=== PATIENT | male | born 1955 | race Caucasian/White ===

== ENCOUNTER 2016-09-25 10:25 | Inpatient (IN) | payer OTHER ==
[~2016-09-25] VITALS: Ht 172.7 cm; Wt 86.5 kg
[~2016-09-25 10:25] MED LIST: ASPEC81 PO; ATOR-26 PO; CALC-51 PO; CHOL100010 PO; CLOP1TAB15 PO; FSM70 PO; FURO80TA63 PO; INSUINJ12 SC; LEVO150T9 PO; LPR25 PO; NVLGI SC; PANT40TA PO; POTA20TA16 PO
[2016-09-25] MEDS ORDERED: INSDGI SC (10:46)
[2016-09-25] MEDS ORDERED: CALC-393 PO (10:46)
[2016-09-25] MEDS ORDERED: PIPERACILLIN/TAZOBACTAM 4.5 GM/100ML D5W IV STA (11:27)
--- NOTE | 2016-09-25 11:31 | EMERGENCY ROOM VISIT NOTE ---
ED Visit Note First contact with patient: 10:52 61-year-old male with infected right great toe and spreading cellulitis was fully evaluated by Chance Wayne PA-C. Please see his note. I also independently evaluated the patient. The patient will be started on IV antibiotics after cultures were obtained. The patient will require admission. Consultation was made with the hospitalist. IMPRESSION Cellulitis Right Foot
[2016-09-25 11:32] LABS: BASO % 0.7 %; BASO ABS # 0.05 K/uL (0-0.2); COMPLETE YES; EOS % 1.6 %; HEMATOCRIT 38.2 % (42-52); IG% 0.1 %; LYMPH % 20.1 %; LYMPH ABS # 1.51 K/uL (1.2-3.4); MEAN CELL VOLUME 91.2 fL (80-100); MEAN PLATELET VOLUME 10.8 fL (7.4-10.4); MONO % 11.2 %; NEUT % 66.3 %; PLATELET COUNT 206 K/uL (130-400); RED BLOOD COUNT 4.19 M/uL (4.7-6.1); WHITE BLOOD COUNT 7.52 K/uL (4.8-10.8)
--- NOTE | 2016-09-25 11:38 | DIAGNOSTIC IMAGING REPORT ---
RIGHT FIRST TOE 3 VIEWS CLINICAL HISTORY: Cellulitis. FINDINGS: 3 views of the right first toe are obtained. No prior studies are available for comparison at the time of dictation. The skeletal structures are osteopenic. No fracture is seen. A cortical lag screw is present within the first toe transfixing the diffuse interphalangeal joint. The screw appears intact. No bony erosion or periostitis is identified. Degenerative spurring is present from the base of the first distal phalanx. Mild arthritic change is seen at the first metatarsophalangeal joint. The overlying soft tissues are normal as visualized. No subcutaneous gas is identified. There is atherosclerotic calcification of the regional arteries. IMPRESSION: Osteopenia with postoperative and degenerative change in the first toe as above. No acute bony abnormality is identified. Electronically signed by: Tae Pizarro M.D. 09/25/2016 11:36 AM Dictated Date/Time: 09/25/2016 11:34 AM
[2016-09-25 11:54] LABS: BUN/CREATININE RATIO 8.5 (10-20); CALCIUM 9.5 mg/dl (8.5-10.1); CREATININE 1.2 mg/dl (0.60-1.40); POTASSIUM 3.5 mmol/L (3.5-5.1)
[2016-09-25] MEDS ORDERED: GLUCOSE 40% GEL 15 GM TUBE PO PRN (12:15)
[2016-09-25] MEDS ORDERED: GLUCAGON FOR INJ 1 MG VIAL SQ PRN (12:15)
[2016-09-25] MEDS ORDERED: DEXTROSE 50% 50 ML SYR IV PRN (12:15)
[2016-09-25] MEDS ORDERED: GLUCOSE 10 TABS/TUBE PO PRN (12:15)
[2016-09-25] MEDS ORDERED: MoRPHine SULFATE 4 MG/ML 1 ML CARP\\VIAL IV PRN (12:30)
[2016-09-25] MEDS ORDERED: MAGNESIUM HYDROXIDE SUSP 30 ML UDC PO PRN (12:30)
[2016-09-25] MEDS ORDERED: ACETAMINOPHEN 325 MG TAB PO PRN (12:30)
[2016-09-25] MEDS ORDERED: MoRPHine SULFATE 2 MG/ML CARP IV PRN (12:30)
[2016-09-25] MEDS ORDERED: ONDANSETRON INJ 2 MG/ML 2 ML VIAL IV PRN (12:30)
[2016-09-25] MEDS ORDERED: ALUMINUM/MAGNESIUM/SIMETH (MAALOX MAX) 30 ML UDC PO PRN (12:30)
[2016-09-25] MEDS ORDERED: OXYCODONE HCL IR 5 MG TAB (IMMEDIATE RELEASE) PO PRN (12:30)
[2016-09-25 12:37] VITALS: BMI 29.0
--- NOTE | 2016-09-25 13:30 | EMERGENCY ROOM VISIT NOTE ---
History First contact with patient: 10:52 Chief Complaint: WOUND INFECTION Stated Complaint: R BIG TOE ULCER INFECTED Nursing Triage Summary: Right great toe wound - wants rechecked, sees [facility]ound [facility]. Not visualized in triage History of Present Illness The patient is a 61 year old male who presents to the Emergency Room with complaints of increasing redness, swelling and drainage from his right great toe. He also reports spread of the redness onto his foot. The patient reports that he stepped on a broken Royal bulb on . He subsequently went to the Wound Center and had some debridement done of the toe. His last appointment was last Monday, and reports that it was getting better until 2 days ago. The patient is a diabetic as well. He denies any pain because of history of diabetic peripheral neuropathy. Review of Systems HEENT: Denies dizziness, visual problems, hearing loss, tinnitus. Denies difficulty swallowing or oral lesions. PULMONARY: Denies cough, shortness of breath, sputum production or hemoptysis. CARDIOVASCULAR: Denies chest pain, palpitations, dyspnea on exertion, orthopnea or peripheral edema. GASTROINTESTINAL: Denies diarrhea, constipation, nausea, vomiting, or abdominal pain. GENITOURINARY: Denies dysuria, frequency, urgency or nocturia. NEUROLOGIC: Denies history of epilepsy, CVA, TIA or chronic headaches. MUSCULOSKELETAL: Denies history of joint tenderness/swelling. SKIN: Denies rashes or lesions. PSYCHIATRIC: Denies history of depression or mental illness. ENDOCRINE: History of diabetes. Denies history of thyroid disorders. Past Medical/Surgical History Medical Problems: (1) Aorto-iliac disease (2) Coronary artery disease (3) Diabetes (4) Diabetic foot infection (5) Diabetic foot ulcer associated with type 1 diabetes mellitus (6) Diabetic peripheral neuropathy associated with type 1 diabetes mellitus (7) DKA (diabetic ketoacidoses) (8) Foot deformity (9) Foot drop (10) Hyperglycemia due to type 1 diabetes mellitus (11) Loss of sensation (12) NSTEMI (non-ST elevated myocardial infarction) (13) Osteomyelitis of left foot (14) Peripheral vascular disease (15) Status post partial amputation of foot Family History Alzheimer's disease MOTHER Asthma Diabetes mellitus BROTHER SISTER GRANDMOTHER Aunt Maternal Aunt Esophageal cancer FATHER FH: kidney cancer Paternal Uncle Lung cancer Paternal Aunt Tobacco abuse Paternal Aunt Social History Smoking Status: Former Smoker Drug Use: none Marital Status: Occupation Status: disabled Current/Historical Medications Scheduled Alendronate Sodium (Alendronate Sodium), 70 MG PO monday Aspirin Enteric Coated (Ecotrin Or Generic *), 81 MG PO QAM Atorvastatin (Lipitor), 80 MG PO HS Calcium Carbonate (Calcium), 800 MG PO BID Cholecalciferol (Vitamin D), 2,000 INTER.UNIT PO QAM Clopidogrel (Plavix), 75 MG PO QAM Insulin Glargine (Lantus), 35 UNITS SC QPM Levothyroxine Sodium (Levothyroxine Sodium), 1 TAB PO QAM Metoprolol Tartrate (Lopressor), 12.5 MG PO BID Pantoprazole (Protonix), 40 MG PO QAM Scheduled PRN Furosemide (Lasix), 80 MG PO DAILY PRN for FLUID RETENTION Insulin Aspart (Novolog), 5-10 SC ACHS PRN for SLIDING SCALE Potassium Ext Rel (Klor-Con), 20 MEQ PO DAILY PRN for WHEN TAKES LASIX Allergies Coded Allergies: No Known Allergies (Verified , 09/25/16) Physical Exam Vital Signs Date Time Temp Pulse Resp B/P Pulse Ox O2 Delivery O2 Flow Rate FiO2 09/25/16 13:14 74 16 136/71 99 09/25/16 12:37 Room Air 09/25/16 12:23 37.1 73 16 134/71 98 Room Air 09/25/16 10:36 36.9 85 18 149/74 100 Room Air Pain Rating (0-10): 0 Physical Exam CONSTITUTIONAL: Healthy and well nourished. Alert and oriented X 3 with positive affect. HEENT: Normocephalic, atraumatic. Pupils equal, round and reactive. NECK: Full active range of motion without discomfort. RESPIRATORY: Clear to auscultation bilaterally with no wheezing, crackles, rhonchi or stridor. CARDIOVASCULAR: Regular rate and rhythm with no murmurs, rubs or gallops. GASTROINTESTINAL: Bowel sounds present in all quadrants. Abdomen is soft and nontender to palpation. MUSCULOSKELETAL: Examination shows notable erythema and edema of the right great toe. The erythema extends onto the distal foot as well. The patient has a open wound on the plantar surface of the proximal phalanx that has purulent drainage. Cultures were collected. Pedal pulses are intact. INTEGUMENTARY: No rash or other significant dermatologic conditions noted. NEUROLOGIC: No focal neurologic deficits noted. Medical Decision & Procedures ER Provider Diagnostic Interpretation: My interpretation of a right great toe x-ray does not show any evidence for underlying radiopaque foreign body. The patient does have a cancellous screw in place from a previous IV fixation. Radiologist report is as follows: RIGHT FIRST TOE 3 VIEWS CLINICAL HISTORY: Cellulitis. FINDINGS: 3 views of the right first toe are obtained. No prior studies are available for comparison at the time of dictation. The skeletal structures are osteopenic. No fracture is seen. A cortical lag screw is present within the first toe transfixing the diffuse interphalangeal joint. The screw appears intact. No bony erosion or periostitis is identified. Degenerative spurring is present from the base of the first distal phalanx. Mild arthritic change is seen at the first metatarsophalangeal joint. The overlying soft tissues are normal as visualized. No subcutaneous gas is identified. There is atherosclerotic calcification of the regional arteries. IMPRESSION: Osteopenia with postoperative and degenerative change in the first toe as above. No acute bony abnormality is identified. Laboratory Results 09/25/16 11:10 Red Blood Count 4.19, Mean Corpuscular Volume 91.2, Mean Corpuscular Hemoglobin 31.0, Mean Corpuscular Hemoglobin Concent 34.0, Mean Platelet Volume 10.8, Neutrophils (%) (Auto) 66.3, Lymphocytes (%) (Auto) 20.1, Monocytes (%) (Auto) 11.2, Eosinophils (%) (Auto) 1.6, Basophils (%) (Auto) 0.7, Neutrophils # (Auto ) 4.99, Lymphocytes # (Auto) 1.51, Monocytes # (Auto) 0.84, Eosinophils # (Auto ) 0.12, Basophils # (Auto) 0.05 09/25/16 11:10 Test 09/25/16 11:10 09/25/16 11:12 White Blood Count 7.52 K/uL (4.8-10.8) Red Blood Count 4.19 M/uL (4.7-6.1) Hemoglobin 13.0 g/dL (14.0-18.0) Hematocrit 38.2 % (42-52) Mean Corpuscular Volume 91.2 fL (80-100) Mean Corpuscular Hemoglobin 31.0 pg (25-34) Mean Corpuscular Hemoglobin Concent 34.0 g/dl (32-36) Platelet Count 206 K/uL (130-400) Mean Platelet Volume 10.8 fL (7.4-10.4) Neutrophils (%) (Auto) 66.3 % Lymphocytes (%) (Auto) 20.1 % Monocytes (%) (Auto) 11.2 % Eosinophils (%) (Auto) 1.6 % Basophils (%) (Auto) 0.7 % Neutrophils # (Auto) 4.99 K/uL (1.4-6.5) Lymphocytes # (Auto) 1.51 K/uL (1.2-3.4) Monocytes # (Auto) 0.84 K/uL (0.11-0.59) Eosinophils # (Auto) 0.12 K/uL (0-0.5) Basophils # (Auto) 0.05 K/uL (0-0.2) RDW Standard Deviation 41.3 fL (36.4-46.3) RDW Coefficient of Variation 12.3 % (11.5-14.5) Immature Granulocyte % (Auto) 0.1 % Immature Granulocyte # (Auto) 0.01 K/uL (0.00-0.02) Anion Gap 10.0 mmol/L (3-11) Est Creatinine Clear Calc Drug Dose 70.9 ml/min Estimated GFR () 76.3 Estimated GFR (Non- 65.8 BUN/Creatinine Ratio 8.5 (10-20) Calcium Level 9.5 mg/dl (8.5-10.1) Bedside Lactic Acid Venous 1.65 mmol/L (0.90-1.70) The above labs were reviewed. Glucose is 191. White count is normal. Bedside lactic acid was at the upper limits of normal. Blood cultures were ordered and are pending. Wound cultures were also collected from the toe. Medications Administered Medications (Trade) Dose Ordered Sig/Malu Route Start Time Stop Time Status Last Admin Dose Admin Piperacillin Sod/ Tazobactam Sod (Zosyn Iv) 4.5 gm NOW STAT IV 09/25/16 11:27 09/25/16 11:29 DC 09/25/16 11:55 4.5 GM ED Course Patient history and physical exam were performed. Nurse's notes were reviewed. I expressed my concern for the advancing cellulitis and the foot, and suggested admission. The patient was in agreement. The patient was also seen and examined by Dr. Valentine, ED at any physician, who agrees with admission planning. IV access was established and labs were drawn, including cultures 2 and wound cultures. The patient was administered Zosyn 4.5 g IV infusion. Labs were reviewed to show no significant leukocytosis. Point of care lactic acid is at the upper limit of normal. X-rays of the right great toe did not show any evidence for underlying radiopaque foreign body or osteomyelitis. The case was further discussed with the [facility] ospitalist group. Please see their dictation for further treatment and final disposition. Medical Decision Impression Primary Impression: Abscess of great toe, right Additional Impressions: Cellulitis of right foot Diabetes Departure Information Referrals Enio Richards M.D. (PCP) Patient Instructions My [facility] Health Problem Qualifiers
--- NOTE | 2016-09-25 13:40 | HISTORY & PHYSICAL EXAMINATION ---
DATE OF ADMISSION: 09/25/2016 CHIEF COMPLAINT: Red right foot. ADMITTING DIAGNOSIS: Diabetic foot infection. HISTORY OF PRESENT ILLNESS: Mr. Chowdhury is a 61-year-old male who suffers from insulin requiring diabetes with neuropathy, nephropathy and retinopathy. The patient reportedly cut his right great toe somewhere around on a broken [employer] ball. The patient has been following along in wound center and approximately 5 days prior to admission had his right toe reviewed where the initial injury was and he was told he was in good condition with regard to this. The patient awoke 1 day prior to admission, he had some erythema to the dorsum of his foot and a "blood blister" at the base of his right great toe. It should be noted that this right great toe has hardware inside of including a screw fusing his DIP and PIP bone together. The patient then watched his foot and it became progressively more erythematous with some minor discomfort. He presented to the Emergency Department where he has got erythema through the dorsum of his foot approximately 5 cm from the base of his toes. There is a dark fluid collection about 1 cm at the base of his right toe on the plantar aspect, this is draining some brownish serosanguineous discharge. The patient has had a previous left fifth toe ray dissection by Dr. Soto and if any orthopedic surgery is required, he prefer Dr. Soto be consulted. The patient had blood cultures obtained and was given piperacillin/tazobactam in the Emergency Department and he is recommended for admission for a diabetic foot infection. PAST MEDICAL HISTORY: As mentioned above including his diabetes with end-organ damage. He has had coronary disease with a previous NSTEMI and STEMI with a CABG. He also has an aortic valve replacement. The patient has hypothyroidism, dyslipidemia, hypertension, his left foot surgery as mentioned, osteoporosis and peripheral artery disease with bilateral iliac stents placed. MEDICATIONS: On presentation are Fosamax 70 mg once a week, aspirin 81 mg a day, atorvastatin 80 a day, vitamin D 2000 a day, Plavix 75 a day. He takes Lasix and potassium 80/20 on a p.r.n. basis, sliding-scale insulin, Lantus 35 units a day, Synthroid 150 a day, metoprolol 12.5 b.i.d., Protonix 40 a day and calcium chloride 800 b.i.d. SOCIAL HISTORY: He is a former smoker who quit. Does not drink alcohol. He is accompanied by his daughter. FAMILY HISTORY: Positive for sister who of complications of heart failure at a young age of 45. He is not clear of the details whether it was ischemic or valvular. REVIEW OF SYSTEMS: Ten systems were reviewed and are negative with the exception of some pain in his right foot associated with his worsening neuropathy there. He does not have great sensation. Other than that he has no other complaints. Ten systems were reviewed. PHYSICAL EXAMINATION: VITAL SIGNS: Physically, temperature 36.9, pulse 85, respiration is 18, BP 149/74, O2 sat 100 on room air. HEENT: PERRL, EOMI. Oropharynx is clear. NECK: Without lymphadenopathy. Trachea is midline. HEART: Regular. There is a systolic murmur at the right upper sternal border consistent with his aortic valve replacement. LUNGS: Clear without wheezes or crackles. Good air movement. ABDOMEN: Normoactive bowel sounds, soft, nontender, nondistended. There are no abdominal bruits heard. EXTREMITIES: He has got chronic changes distally to extremities. His left is missing his fifth toe. There is a depression of his mid tibia where it looks like an old wound had healed. He has had changes chronic peripheral artery disease distally with silvering of the skin and some scaling, marked onychomycosis to all remaining toenails. His right foot, he has got erythema to the dorsum of his foot in an irregular pattern. The great toe on the plantar aspect has the aforementioned changes which is concerning for a deep diabetic foot infection and given the fact that he has got hardware would be concerning eventually for osteomyelitis. NEUROLOGICALLY: He is awake, alert and appropriate. Cranial nerves II through XII are intact. He does have stocking glove neuropathy. LABORATORY DATA: Currently, the only labs returned are a CBC with a white count of 5.2, H\\T\\H is 13 and 38 and his platelet count is normal at 206. Renal function is preserved with a BUN of 10 and creatinine 1.2, glucose is 191. He has an x-ray of his toe which shows hardware intact. No radiological evidence of osteoporosis. Osteopenia is noted. ASSESSMENT: Diabetic foot infection. PLAN: The patient had blood cultures obtained. Will use Zosyn and vancomycin. Infectious disease and wound care consult will be undertaken. For diabetes, maintain his Lantus with a sliding-scale insulin. For his cardiovascular disease, aspirin, Plavix, atorvastatin and metoprolol will be continued. For his osteoporosis, his Fosamax will be held today. He will continue his calcium carbonate. For his hypothyroidism he is clinically euthyroid. His TSH was not checked on this admission. The most recent TSH in the system is from August in which the TSH was elevated, but his free T4 is in normal range. We will continue his Synthroid dose at 150. DVT prevention is based upon heparin and he is a full code.
[2016-09-25 13:50] LABS: PROTHROMBIN TIME (PATIENT) 10.9 SECONDS (9.0-12.0)
[2016-09-25 16:47] VITALS: BP 162/88; PULSE 75; TEMP 37; O2SAT 99
[2016-09-25] MEDS: INSULIN ASPART 100 UNITS/ML 3 ML PEN SC SCH ×2 (17:38→20:30)
[2016-09-25] MEDS: HEPARIN SOD 5000 UNIT/0.5 ML CARP SQ SCH (18:36)
[2016-09-25] MEDS: INSULIN GLARGINE SOLOSTAR 100 UNITS/ML 3 ML PEN SC SCH (20:29)
[2016-09-25] MEDS: METOPROLOL TARTRATE 25 MG TAB PO SCH (20:34)
[2016-09-25] MEDS: ATORVASTATIN 40 MG TAB PO SCH (20:53)
[2016-09-25] MEDS: CALCIUM CARBONATE 1250MG TAB PO SCH (20:53)
[2016-09-25 20:55] VITALS: BP 179/83; PULSE 82
[2016-09-25] MEDS ORDERED: INSULIN GLARGINE SOLOSTAR 100 UNITS/ML 3 ML PEN SC SCH (21:00)
[2016-09-25 23:02] VITALS: BP 164/84; PULSE 77; TEMP 37; O2SAT 95
[2016-09-26] VITALS: O2SAT 99
[2016-09-26] MEDS: LEVOTHYROXINE 150 MCG TAB PO SCH (06:23)
[2016-09-26 06:26] LABS: HEMATOCRIT 35.6 % (42-52); MEAN CELL VOLUME 89.2 fL (80-100); MEAN CORPUSCULAR HEMOGLOBIN 29.8 pg (25-34); MEAN CORPUSCULAR HGB CONC 33.4 g/dl (32-36); MEAN PLATELET VOLUME 10.6 fL (7.4-10.4); PLATELET COUNT 201 K/uL (130-400); RED BLOOD COUNT 3.99 M/uL (4.7-6.1); WHITE BLOOD COUNT 6.04 K/uL (4.8-10.8)
[2016-09-26] MEDS: HEPARIN SOD 5000 UNIT/0.5 ML CARP SQ SCH ×2 (06:27→17:43)
[2016-09-26 06:46] LABS: BUN/CREATININE RATIO 7.7 (10-20); CALCIUM 8.3 mg/dl (8.5-10.1); CREATININE 1.1 mg/dl (0.60-1.40); POTASSIUM 3.6 mmol/L (3.5-5.1)
[2016-09-26 06:59] LABS: BETA-HYDROXYBUTYRATE 6.18 mg/dL (0.2-2.81)
[2016-09-26 07:28] VITALS: BP 145/82; PULSE 84; TEMP 36.7; O2SAT 96
[2016-09-26] MEDS: CLOPIDOGREL BISULFATE 75 MG TAB PO SCH (08:36)
[2016-09-26] MEDS: PANTOprazole SOD 40 MG TAB PO SCH (08:36)
[2016-09-26] MEDS: ASPIRIN 81 MG ECTAB PO SCH (08:36)
[2016-09-26] MEDS: CHOLECALCIFEROL 1000 INTER.UNIT TAB PO SCH (08:37)
[2016-09-26] MEDS: INSULIN ASPART 100 UNITS/ML 3 ML PEN SC SCH ×4 (08:38→20:50)
[2016-09-26] MEDS ORDERED: VANCOMYCIN 1GM/270ML NSS IV STA (09:52)
[2016-09-26] MEDS ORDERED: PIPERACILL/TAZOBAC IV 3.375 GM in DEXTROSE 5% 100ML 100 ML IV STA (09:52)
[2016-09-26] MEDS ORDERED: NURSING VERBAL MED ORDER ONE ×2 (10:15)
[2016-09-26] MEDS ORDERED: PIPERACILL/TAZOBAC IV 3.375 GM in DEXTROSE 5% 100ML IV ONE (10:45)
[2016-09-26] MEDS ORDERED: PHARMACY GLYCEMIC MGMT CONSULT PRN (10:45)
[2016-09-26] MEDS ORDERED: VANCOMYCIN CONSULT ACTIVE PRN (10:45)
[2016-09-26] MEDS ORDERED: PIPERACILL/TAZOBAC CONSULT ACTIVE PRN (10:45)
[2016-09-26 10:54] VITALS: BP 125/78; PULSE 83
[2016-09-26] MEDS: METOPROLOL TARTRATE 25 MG TAB PO SCH ×2 (10:55→20:48)
[2016-09-26] MEDS: CALCIUM CARBONATE 1250MG TAB PO SCH ×2 (10:55→20:48)
[2016-09-26] MEDS ORDERED: VANCOMYCIN INJ 2,200 MG in SODIUM CHLORIDE 0.9% 500ML 500 ML IV ONE (11:00)
--- NOTE | 2016-09-26 11:04 | Pharmacy Progress Note ---
Pharmacy Antibiotic Consult Date of Service: Sep 26, 2016. Pharmacy Dosing Scope Pharmacy is consulted to initiate VANCO/ZOSYN IV dosing therapy, order appropriate labs and adjust drug dose/frequency. Subjective The patient is a 61 year old male admitted on Sep 25, 2016 at 12:26. Objective Height (Feet): 5 Height (Inches): 8.00 Weight (Kilograms): 86.500 Lab Results (24hrs): Item Value Date Time Creatinine 1.10 mg/dl 09/26/16 0510 Est Creatinine Clear Calc Drug Dose 77.3 ml/min 09/26/16 0510 Laboratory Tests Test 09/25/16 11:10 09/26/16 05:10 BUN/Creatinine Ratio 8.5 7.7 Blood Urea Nitrogen 10 mg/dl 8 mg/dl Creatinine 1.20 mg/dl 1.10 mg/dl White Blood Count 7.52 K/uL 6.04 K/uL Red Blood Count 4.19 M/uL Hemoglobin 13.0 g/dL Hematocrit 38.2 % Mean Corpuscular Volume 91.2 fL Mean Corpuscular Hemoglobin 31.0 pg Mean Corpuscular Hemoglobin Concent 34.0 g/dl Platelet Count 206 K/uL Mean Platelet Volume 10.8 fL Neutrophils (%) (Auto) 66.3 % Lymphocytes (%) (Auto) 20.1 % Monocytes (%) (Auto) 11.2 % Eosinophils (%) (Auto) 1.6 % Basophils (%) (Auto) 0.7 % Neutrophils # (Auto) 4.99 K/uL Lymphocytes # (Auto) 1.51 K/uL Monocytes # (Auto) 0.84 K/uL Eosinophils # (Auto) 0.12 K/uL Basophils # (Auto) 0.05 K/uL Micro Results: Item Value Date Time Gram Stain - Final Resulted 09/25/16 1100 Abscess Toe Left 1 SEE BELOW Blood Culture Received 09/25/16 1110 Blood Pending Blood Culture Received 09/25/16 1145 Blood Pending RUN DATE: 09/26/16 [facility] LAB PAGE 1 RUN TIME: 0820 Specimen Inquiry PATIENT: RON CHOWDHURY LOC: [place] U # : [id number] AGE/SX: 61/M ROOM: E402 REG : 09/25/[address]: Ron Mares M. : 1955 BED: 1 DIS : STATUS: ADM IN TLOC: SPEC #: [id number] BENJA: 09/25/16 STATUS: RES REQ #: [id number] RECD: 09/25/[address]: Salvador Wayne PA SOURCE: ABSCESS ENTR: 09/25/[address]: Enio Richards M.D. SPDESC: Shadi Faulkner M.D. ORDERED: DEP BARBARA CUL/AMAURY COMMENTS: Has Specimen Been Obtained/Collected? Y Procedure Result Verified Site GRAM STAIN Final 09/26/16 RESULT MANY GRAM POSITIVE COCCI FEW GRAM POSITIVE BACILLI MANY WBCs SEEN MANY EPITHELIAL CELLS DEEP WOUND CULTURE Preliminary 09/26/16 Organism 1 CORYNEBACTERIUM SPECIES QUANITY MANY SENS NO SENSITIVITY TO FOLLOW Organism 2 STAPHYLOCOCCUS AUREUS QUANITY MODERATE SENS SENSITIVITY TO FOLLOW Assessment & Plan Pt is a 61yo M p/w diabetic L foot infection (appears to be recurrent). Renal fxn looks to be around his baseline. currently SCr: 1.1 and eCrCl: 77cc/min. Pt population p'kinetics: ke=0.0683 and t1/2=10hrs. No leukocytosis, a febrile. Lactic acid WNL. Abscess: growing staph aureus and corynebacterium sp. He grew MRSA in 2007; however more recently he has grown MSSA. BC are currently pending. Vanco * Loading dose: 2200mg (25mg/kg) IV X 1 dose then: * Vanco 1300mg (15mg/kg) IV every 12 hours. * Goal trough level estimate: between 10 - 15 mcg/mL. Bc of the recurring nature of this wound; a higher trough may be desirable depending on clinical status of Pt. * Trough level has been ordered for: prior to the 4th MD. Zosyn: * Set to receive 30 min 3.375g infsn at 11 * Then EI 3.375g q8 starting at 1600, appropriate for clinical status and eCrCl> 20cc/min Thank you for consulting the pharmacy kinetic team and including us in the care of Mr. Chowdhury. Pharmacy will continue to follow and will adjust dose/frequency as necessary. Thank you
--- NOTE | 2016-09-26 11:09 | Medical Consult ---
Consultation Date of Consultation: Sep 26, 2016. Attending Physician: Ron Mares M.D. Reason for Consultation: Diabetic foot infection History of Present Illness 61-year-old male known to me from previous Infectious Disease consultation, with long history of insulin-dependent diabetes mellitus with peripheral neuropathy, apparently suffered traumatic wound to his right great toe in late August. [facility] and was apparently doing well, last seen 1 week ago. On the day of admission, patient awoke and found a large blood blister on the dorsum of the toe, with significant erythema and swelling of the foot. He was admitted to the hospital for further management, started on IV vancomycin and Zosyn. Thus far, cultures are growing Staph aureus , sensitivities are pending. X-ray of the toe, read by me, shows no obvious osteomyelitis. Erythema has receded somewhat since admission. Currently afebrile. No significant pain. Tolerating antibiotics without apparent difficulty. Past Medical/Surgical History Medical Problems: (1) Abscess of great toe, right Status: Acute (2) Cellulitis of right foot Status: Acute (3) Fall Status: Acute (4) Injury of right hip Status: Acute Medical Problems: (1) Aorto-iliac disease (2) Coronary artery disease (3) Diabetes (4) Diabetic foot infection (5) Diabetic foot ulcer associated with type 1 diabetes mellitus (6) Diabetic peripheral neuropathy associated with type 1 diabetes mellitus (7) DKA (diabetic ketoacidoses) (8) Foot deformity (9) Foot drop (10) Hyperglycemia due to type 1 diabetes mellitus (11) Loss of sensation (12) NSTEMI (non-ST elevated myocardial infarction) (13) Osteomyelitis of left foot (14) Peripheral vascular disease (15) Status post partial amputation of foot Family History Alzheimer's disease MOTHER Asthma Diabetes mellitus BROTHER SISTER GRANDMOTHER Aunt Maternal Aunt Esophageal cancer FATHER FH: kidney cancer Paternal Uncle Lung cancer Paternal Aunt Tobacco abuse Paternal Aunt Social History Smoking Status: Former Smoker Drug Use: none Marital Status: Occupation Status: disabled Allergies Coded Allergies: No Known Allergies (Verified , 09/25/16) Current Inpatient Medications Current Inpatient Medications Medications (Trade) Dose Ordered Sig/Malu Route Start Time Stop Time Status Last Admin Dose Admin Aspirin (Ecotrin Tab) 81 mg QAM PO 09/26/16 08:00 10/26/16 08:59 09/26/16 08:36 81 MG Atorvastatin Calcium (Lipitor Tab) 80 mg HS PO 09/25/16 21:00 10/25/16 20:59 09/25/16 20:53 80 MG Cholecalciferol (Vitamin D Tab) 2,000 inter.unit QAM PO 09/26/16 08:00 10/26/16 08:59 09/26/16 08:37 2,000 INTER.UNIT Clopidogrel Bisulfate (plAVix TAB) 75 mg QAM PO 09/26/16 08:00 10/26/16 08:59 09/26/16 08:36 75 MG Levothyroxine Sodium (Synthroid Tab) 150 mcg DAILYBB PO 09/26/16 06:30 10/26/16 06:59 09/26/16 06:23 150 MCG Metoprolol Tartrate (Lopressor Tab) 12.5 mg BID PO 09/25/16 20:00 10/25/16 20:59 09/26/16 10:55 12.5 MG Pantoprazole Sodium (Protonix Tab) 40 mg QAM PO 09/26/16 08:00 10/26/16 08:59 09/26/16 08:36 40 MG Calcium Carbonate (oS-Lionel 500 TAB) 1,250 mg BID PO 09/25/16 20:00 10/25/16 19:59 09/26/16 10:55 1,250 MG Glucose (Glucose 40% Gel) 15-30 GRAMS 15 GRAMS... UD PRN PO 09/25/16 12:15 10/25/16 12:14 Glucose (Glucose Chew Tab) 4-8 Tablets 4 Tabl... UD PRN PO 09/25/16 12:15 10/25/16 12:14 Dextrose (Dextrose 50% 50ML Syringe) 25-50ML OF 50% DW IV FOR... UD PRN IV 09/25/16 12:15 10/25/16 12:14 Glucagon (Glucagon Inj) 1 mg UD PRN SQ 09/25/16 12:15 10/25/16 12:14 Acetaminophen (Tylenol Tab) 650 mg Q4H PRN PO 09/25/16 12:30 10/25/16 12:29 Al Hydrox/Mg Hydrox/Simethicone (Maalox Max Susp) 15 ml Q4H PRN PO 09/25/16 12:30 10/25/16 12:29 Magnesium Hydroxide (Milk Of Magnesia Susp) 30 ml Q6H PRN PO 09/25/16 12:30 10/25/16 12:29 Ondansetron HCl (Zofran Inj) 4 mg Q6H PRN IV 09/25/16 12:30 10/25/16 12:29 Heparin Sodium (Porcine) (Heparin Sq 5000 Unit/0.5ml) 5,000 unit Q12H SQ 09/25/16 18:00 10/25/16 17:59 09/26/16 06:27 5,000 UNIT Insulin Aspart (novoLOG ASPART) SLIDING SCALE PARAMETER ACHS SC 09/25/16 16:00 10/25/16 15:59 09/26/16 08:38 7 UNITS Morphine Sulfate (MoRPHine SULFATE INJ) 2 mg Q4H PRN IV 09/25/16 12:30 10/09/16 12:29 Morphine Sulfate (MoRPHine SULFATE INJ) 4 mg Q4H PRN IV 09/25/16 12:30 10/09/16 12:29 Oxycodone HCl (Roxicodone Immediate Rel Tab) 10 mg Q6 PRN PO 09/25/16 12:30 10/09/16 12:29 Insulin Glargine (Lantus Solostar Pen) 35 unit QPM SC 09/25/16 21:00 10/25/16 20:59 09/25/16 20:29 35 UNIT Miscellaneous Information (Consult Glycemic Management Pharmacy) 1 ea UD PRN N/A 09/26/16 10:45 10/26/16 10:44 Vancomycin HCl 1 ea 1 ea UD PRN N/A 09/26/16 10:45 10/26/16 10:44 Vancomycin HCl 2200 mg/Sodium Chloride 544 ml @ 200 mls/hr TODAY@1100 ONCE IV 09/26/16 11:00 09/26/16 13:43 Vancomycin HCl/ Sodium Chloride (Vancomycin Inj/ Nss 250ml) 276 ml @ 125 mls/hr Q12H IV 09/26/16 19:00 10/06/16 18:59 Piperacillin Sod/ Tazobactam Sod 1 ea 1 ea UD PRN N/A 09/26/16 10:45 10/26/16 10:44 Piperacillin Sod/ Tazobactam Sod 3.375 gm/Dextrose 115 ml @ 230 mls/hr NOW ONCE IV 09/26/16 10:45 09/26/16 11:14 09/26/16 10:56 230 MLS/HR Piperacillin Sod/ Tazobactam Sod/ Dextrose (Zosyn Iv/D5 100ml) 115 ml @ 28.75 mls/ hr Q8H IV 09/26/16 16:00 10/06/16 15:59 Review of Systems All systems were reviewed and are negative except as per HPI Physical Exam Date Time Temp Pulse Resp B/P Pulse Ox O2 Delivery O2 Flow Rate FiO2 09/26/16 10:54 83 125/78 09/26/16 07:28 36.7 84 18 145/82 96 Room Air 09/26/16 00:00 99 Room Air 09/25/16 23:02 37.0 77 16 164/84 95 Room Air 09/25/16 20:55 82 179/83 09/25/16 16:47 37.0 75 18 162/88 99 Room Air 09/25/16 16:00 Room Air 09/25/16 13:14 74 16 136/71 99 09/25/16 12:37 Room Air 09/25/16 12:23 37.1 73 16 134/71 98 Room Air General Appearance: WD/WN, no apparent distress Head: normocephalic, atraumatic Eyes: normal inspection, EOMI, sclerae normal ENT: normal ENT inspection, hearing grossly normal, pharynx normal Neck: supple, no adenopathy, thyroid normal, trachea midline Respiratory/Chest: chest non-tender, lungs clear, normal breath sounds, no respiratory distress Cardiovascular: regular rate, rhythm, no gallop, no murmur Abdomen/GI: normal bowel sounds, non tender, soft, no organomegaly Back: normal inspection, no CVA tenderness Extremities/Musculoskelatal: no calf tenderness, non-tender Neurologic/Psych: alert, oriented x 3, + sensory deficit (Both feet) Skin: normal color, no rash, + pertinent finding ( right great toe plantar ulceration, erythema of the toe and foot) Lymphatic: no adenopathy Laboratory Results --------- RUN DATE: 09/26/16 [facility] LAB PAGE 1 RUN TIME: 0820 Specimen Inquiry PATIENT: RON MOE LOC: [place] U # : [id number] AGE/SX: 61/M ROOM: E402 REG : 09/25/[address]: Ron Mares M. : 1955 BED: 1 DIS : STATUS: ADM IN TLOC: SPEC #: [id number] BENJA: 09/25/16 STATUS: RES REQ #: [id number] RECD: 09/25/[address]: Salvador Wayne PA SOURCE: ABSCESS ENTR: 09/25/[address]: Enio Richards M.D. SPDESC: Shadi Faulkner M.D. ORDERED: LOIS JIMENEZ CUL/AMAURY COMMENTS: Has Specimen Been Obtained/Collected? Y Procedure Result Verified Site GRAM STAIN Final 09/26/16 RESULT MANY GRAM POSITIVE COCCI FEW GRAM POSITIVE BACILLI MANY WBCs SEEN MANY EPITHELIAL CELLS DEEP WOUND CULTURE Preliminary 09/26/16 Organism 1 CORYNEBACTERIUM SPECIES QUANITY MANY SENS NO SENSITIVITY TO FOLLOW Organism 2 STAPHYLOCOCCUS AUREUS QUANITY MODERATE SENS SENSITIVITY TO FOLLOW END OF REPORT Last 24 Hours Test 09/25/16 11:10 09/25/16 11:12 09/25/16 16:41 09/25/16 20:17 White Blood Count 7.52 K/uL Red Blood Count 4.19 M/uL Hemoglobin 13.0 g/dL Hematocrit 38.2 % Mean Corpuscular Volume 91.2 fL Mean Corpuscular Hemoglobin 31.0 pg Mean Corpuscular Hemoglobin Concent 34.0 g/dl Platelet Count 206 K/uL Mean Platelet Volume 10.8 fL Neutrophils (%) (Auto) 66.3 % Lymphocytes (%) (Auto) 20.1 % Monocytes (%) (Auto) 11.2 % Eosinophils (%) (Auto) 1.6 % Basophils (%) (Auto) 0.7 % Neutrophils # (Auto) 4.99 K/uL Lymphocytes # (Auto) 1.51 K/uL Monocytes # (Auto) 0.84 K/uL Eosinophils # (Auto) 0.12 K/uL Basophils # (Auto) 0.05 K/uL RDW Standard Deviation 41.3 fL RDW Coefficient of Variation 12.3 % Immature Granulocyte % (Auto) 0.1 % Immature Granulocyte # (Auto) 0.01 K/uL Prothrombin Time 10.9 SECONDS Prothromb Time International Ratio 1.0 Sodium Level 139 mmol/L Potassium Level 3.5 mmol/L Chloride Level 99 mmol/L Carbon Dioxide Level 30 mmol/L Anion Gap 10.0 mmol/L Blood Urea Nitrogen 10 mg/dl Creatinine 1.20 mg/dl Est Creatinine Clear Calc Drug Dose 70.9 ml/min Estimated GFR () 76.3 Estimated GFR (Non- 65.8 BUN/Creatinine Ratio 8.5 Random Glucose 191 mg/dl Calcium Level 9.5 mg/dl Bedside Lactic Acid Venous 1.65 mmol/L Bedside Glucose 244 mg/dl 331 mg/dl Test 09/26/16 05:10 09/26/16 07:34 White Blood Count 6.04 K/uL Red Blood Count 3.99 M/uL Hemoglobin 11.9 g/dL Hematocrit 35.6 % Mean Corpuscular Volume 89.2 fL Mean Corpuscular Hemoglobin 29.8 pg Mean Corpuscular Hemoglobin Concent 33.4 g/dl RDW Standard Deviation 39.3 fL RDW Coefficient of Variation 12.2 % Platelet Count 201 K/uL Mean Platelet Volume 10.6 fL Sodium Level 137 mmol/L Potassium Level 3.6 mmol/L Chloride Level 99 mmol/L Carbon Dioxide Level 29 mmol/L Anion Gap 9.0 mmol/L Blood Urea Nitrogen 8 mg/dl Creatinine 1.10 mg/dl Est Creatinine Clear Calc Drug Dose 77.3 ml/min Estimated GFR () 84.7 Estimated GFR (Non- 73.1 BUN/Creatinine Ratio 7.7 Random Glucose 393 mg/dl Calcium Level 8.3 mg/dl Beta-Hydroxybutyric Acid 6.18 mg/dL Bedside Glucose 310 mg/dl [~ rep ct add3]] RIGHT FIRST TOE 3 VIEWS CLINICAL HISTORY: Cellulitis. FINDINGS: 3 views of the right first toe are obtained. No prior studies are available for comparison at the time of dictation. The skeletal structures are osteopenic. No fracture is seen. A cortical lag screw is present within the first toe transfixing the diffuse interphalangeal joint. The screw appears intact. No bony erosion or periostitis is identified. Degenerative spurring is present from the base of the first distal phalanx. Mild arthritic change is seen at the first metatarsophalangeal joint. The overlying soft tissues are normal as visualized. No subcutaneous gas is identified. There is atherosclerotic calcification of the regional arteries. IMPRESSION: Osteopenia with postoperative and degenerative change in the first toe as above. No acute bony abnormality is identified. Electronically signed by: Tae Pizarro M.D. 09/25/2016 11:36 AM Dictated Date/Time: 09/25/2016 11:34 AM Assessment & Plan Infected right great toe ulceration with cellulitis of the toe and foot, in the setting of diabetes and peripheral neuropathy, with cultures thus far positive for Staph aureus. Recommend continuation of IV vancomycin and Zosyn pending final culture results, hopefully will not require prolonged IV antibiotics. Will follow and adjust antibiotics once culture results are available.
--- NOTE | 2016-09-26 11:24 | Pharmacy Progress Note ---
Glycemic Control Intl Consult Date of Service Sep 26, 2016. Scope Glycemic Pharmacist consulted by Dr Mares on 09/26/16 for glycemic control and to write orders per [facility] inpatient glycemic control protocol Objective Weight (Kilograms): 86.500 Accuchecks BSG (last 24hrs): Test 09/25/16 16:41 09/25/16 20:17 09/26/16 05:10 09/26/16 07:34 Bedside Glucose 244 mg/dl (70-99) 331 mg/dl (70-99) 310 mg/dl (70-99) Random Glucose 393 mg/dl (70-99) Laboratory Data (last 24hrs) Test 09/26/16 05:10 Anion Gap 9.0 mmol/L BUN/Creatinine Ratio 7.7 Blood Urea Nitrogen 8 mg/dl Creatinine 1.10 mg/dl Potassium Level 3.6 mmol/L Sodium Level 137 mmol/L White Blood Count 6.04 K/uL Recent Pertinent Medications Outpatient Anti-diabetic Regimen: * NovoLog 5-10 units SQ AC+HS PRN sliding scale * *from prior admission Correction factor: 40mg/dL/unit if BSG >150mg/dL * *from prior admission Carb ratio of 1:8 for breakfast and lunch and 1:5 for supper * Lantus 35 units SQ q PM * A1c = 8.8 % 08/2016 The patient is currently receiving: * Basal insulin: Lantus 35 units every 24 hours * Correctional Insulin: Novolog Correction per scale ACHS Goal Range: Low 80 mg/dL - High 150 mg/dL Correction Factor: 25 mg/dL/unit * Prandial insulin: Per carb ratio of 1 unit per -- grams CHO consumed Risk Factors for Insulin Resistance: * Infection: diabetic foot infection - current ABX include piperacillin/ tazobactam and vancomycin * Diet: T2DM Assessment & Plan ASSESSMENT: * ADA & AACE recommend a goal blood sugar range 140-180 mg/dl for the majority of critically ill & non-critically ill patients. However, more stringent targets may be selected in individual cases. 09/26/16: * Type 1 diabetic admitted secondary to a diabetic foot infection who is known to the glycemic service from prior admissions * ABX with vancomycin and piperacillin/tazobactam * Will require both prandial, correctional, and basal insulin * add carb ratio to NovoLog * tighten NovoLog parameters based on prior admission * Quite sensitive during prior admission to HS NovoLog - * loosen HS NovoLog only to avoid hypoglycemia in the AM * Currently acutely hyperglycemic * will give IV regular insulin bolus to augment SQ NovoLog with lunch if BSG > 275mg/dL * if anion gap develops, may need insulin infusion * A1c from August 2016 much improved from April value PLAN FOR INPATIENT GLYCEMIC CONTROL: * Continue home Lantus dose of 35 units SQ q PM * Continue NovoLog AC and HS * give additional Accu-checks since hyperglycemia (00:00 and 04:00) * Correction factor: 30mg/dL/unit AC and 40mg/dL/unit at HS * Carb ratio: 1 unit per 6g of CHO consumed * Goal range: 140-180mg/dL per ADA recommendations for most inpatients * IV regular insulin bolus PRN * A1c current from August 2016 * add to discharge instructions * Please note that the plan above was derived based on current level of insulin resistance and hospital stress. These recommendations are appropriate for inpatient admission only. Plan of care upon discharge will need to be reassessed to avoid potential outpatient hypo/hyperglycemia. Thank you.
--- NOTE | 2016-09-26 12:06 | CONSULTATION REPORT ---
DATE OF CONSULTATION: 09/26/2016 SUBJECTIVE: The patient is seen today following admission yesterday for progressing cellulitis to the right foot and big toe region. The patient has been under the care of myself at the wound clinic, last seen 5 days ago following sustained a traumatic injury to the plantar surface of the right great toe around [place] time when he stepped on a broken jaeyos ball. The patient states that he noticed redness developing on the foot on Monday and subsequently presented to the Emergency Department and was admitted yesterday for management of his cellulitis of the foot region. The patient denies any fever, chills or night sweats. The patient denies any chest pain, shortness of breath, abdominal discomfort, nausea or vomiting. The patient denies any other systemic complaints at this time. OBJECTIVE: The patient's vital signs were reviewed and found to be unremarkable. The patient is afebrile. The patient is currently lying in the hospital bed in no acute distress, alert and cooperative throughout the examination. The right foot demonstrates the presence of a fluctuant mass on the lateral plantar aspect of the right great toe. There is a purplish discoloration present at this site. There is some surrounding erythema and the erythema does not progress the dorsal aspect of the foot; however, less than the marker that was placed yesterday prior to the patient's admission. There is no active drainage at the present time. The patient is essentially neuropathic, so no tenderness is noted. ASSESSMENT: Abscess formation right great toe. PLAN: At this time, the site did require drainage and debridement. With the patient's permission, this was performed using scissors, forceps and a #5 curette. The area was opened and a minimal amount of drainage less than 2 mL was present. Necrotic tissue was removed. Minimal bleeding occurred which was controlled with direct pressure. The patient had already been cultured at this site and had been on antibiotic therapy. This site will be managed with Iodosorb and gauze changed daily for the next 48 hours and then change to Aquacel AG and gauze changed daily. The patient will be continued to be monitored as an inpatient and will be continued also to be managed on an outpatient basis upon discharge. This represented an incision and drainage of an abscess to the right foot.
[2016-09-26 15:32] VITALS: BP 136/75; PULSE 78; TEMP 37.2; O2SAT 98
[2016-09-26] MEDS: PIPERACILL/TAZOBAC IV 3.375 GM in DEXTROSE 5% 100ML IV SCH ×2 (16:33→23:51)
[2016-09-26 16:35] VITALS: BMI 29.0
--- NOTE | 2016-09-26 17:42 | Progress Note ---
Subjective Date of Service: Sep 26, 2016. Subjective Pt evaluation today including: conversation w/ patient, physical exam, chart review, lab review Problem List Medical Problems: (1) Abscess of great toe, right Status: Acute (2) Cellulitis of right foot Status: Acute (3) Fall Status: Acute (4) Injury of right hip Status: Acute Review of Systems Constitutional: No chills, No fever Eyes: No worsening of vision ENT: No hearing loss Respiratory: No cough, No shortness of breath, No sputum Cardiac: No chest pain, No edema Abdomen: No diarrhea, No pain, No vomiting Musculoskeletal: No joint pain Male : No dysuria Neurologic: + numbness/tingling, No paralysis, No weakness Psychiatric: No depression symptoms Endo: + fatigue Skin: No rash Medications Current Inpatient Medications Medications (Trade) Dose Ordered Sig/Malu Route Start Time Stop Time Status Last Admin Dose Admin Aspirin (Ecotrin Tab) 81 mg QAM PO 09/26/16 08:00 10/26/16 08:59 09/26/16 08:36 81 MG Atorvastatin Calcium (Lipitor Tab) 80 mg HS PO 09/25/16 21:00 10/25/16 20:59 09/25/16 20:53 80 MG Cholecalciferol (Vitamin D Tab) 2,000 inter.unit QAM PO 09/26/16 08:00 10/26/16 08:59 09/26/16 08:37 2,000 INTER.UNIT Clopidogrel Bisulfate (plAVix TAB) 75 mg QAM PO 09/26/16 08:00 10/26/16 08:59 09/26/16 08:36 75 MG Levothyroxine Sodium (Synthroid Tab) 150 mcg DAILYBB PO 09/26/16 06:30 10/26/16 06:59 09/26/16 06:23 150 MCG Metoprolol Tartrate (Lopressor Tab) 12.5 mg BID PO 09/25/16 20:00 10/25/16 20:59 09/26/16 10:55 12.5 MG Pantoprazole Sodium (Protonix Tab) 40 mg QAM PO 09/26/16 08:00 10/26/16 08:59 09/26/16 08:36 40 MG Calcium Carbonate (oS-Lionel 500 TAB) 1,250 mg BID PO 09/25/16 20:00 10/25/16 19:59 09/26/16 10:55 1,250 MG Glucose (Glucose 40% Gel) 15-30 GRAMS 15 GRAMS... UD PRN PO 09/25/16 12:15 10/25/16 12:14 Glucose (Glucose Chew Tab) 4-8 Tablets 4 Tabl... UD PRN PO 09/25/16 12:15 10/25/16 12:14 Dextrose (Dextrose 50% 50ML Syringe) 25-50ML OF 50% DW IV FOR... UD PRN IV 09/25/16 12:15 10/25/16 12:14 Glucagon (Glucagon Inj) 1 mg UD PRN SQ 09/25/16 12:15 10/25/16 12:14 Acetaminophen (Tylenol Tab) 650 mg Q4H PRN PO 09/25/16 12:30 10/25/16 12:29 Al Hydrox/Mg Hydrox/Simethicone (Maalox Max Susp) 15 ml Q4H PRN PO 09/25/16 12:30 10/25/16 12:29 Magnesium Hydroxide (Milk Of Magnesia Susp) 30 ml Q6H PRN PO 09/25/16 12:30 10/25/16 12:29 Ondansetron HCl (Zofran Inj) 4 mg Q6H PRN IV 09/25/16 12:30 10/25/16 12:29 Heparin Sodium (Porcine) (Heparin Sq 5000 Unit/0.5ml) 5,000 unit Q12H SQ 09/25/16 18:00 10/25/16 17:59 09/26/16 06:27 5,000 UNIT Morphine Sulfate (MoRPHine SULFATE INJ) 2 mg Q4H PRN IV 09/25/16 12:30 10/09/16 12:29 Morphine Sulfate (MoRPHine SULFATE INJ) 4 mg Q4H PRN IV 09/25/16 12:30 10/09/16 12:29 Oxycodone HCl (Roxicodone Immediate Rel Tab) 10 mg Q6 PRN PO 09/25/16 12:30 10/09/16 12:29 Insulin Glargine (Lantus Solostar Pen) 35 unit QPM SC 09/25/16 21:00 10/25/16 20:59 09/25/16 20:29 35 UNIT Miscellaneous Information (Consult Glycemic Management Pharmacy) 1 ea UD PRN N/A 09/26/16 10:45 10/26/16 10:44 Vancomycin HCl 1 ea 1 ea UD PRN N/A 09/26/16 10:45 10/26/16 10:44 Vancomycin HCl/ Sodium Chloride (Vancomycin Inj/ Nss 250ml) 276 ml @ 125 mls/hr Q12H IV 09/26/16 19:00 10/06/16 18:59 Piperacillin Sod/ Tazobactam Sod 1 ea 1 ea UD PRN N/A 09/26/16 10:45 10/26/16 10:44 Piperacillin Sod/ Tazobactam Sod/ Dextrose (Zosyn Iv/D5 100ml) 115 ml @ 28.75 mls/ hr Q8H IV 09/26/16 16:00 10/06/16 15:59 09/26/16 16:33 28.75 MLS/HR Insulin Aspart (novoLOG ASPART) SLIDING SCALE PARAMETER AC SC 09/26/16 11:30 10/26/16 11:29 09/26/16 12:58 18 UNITS Insulin Aspart (novoLOG ASPART) SLIDING SCALE PARAMETER HS SC 09/26/16 21:00 10/26/16 20:59 Insulin Aspart (novoLOG ASPART) SLIDING SCALE PARAMETER 0200 SC 09/27/16 02:00 10/27/16 01:59 Objective Vital Signs Date Time Temp Pulse Resp B/P Pulse Ox O2 Delivery O2 Flow Rate FiO2 09/26/16 16:00 Room Air 09/26/16 15:32 37.2 78 16 136/75 98 Room Air 09/26/16 14:11 Room Air 09/26/16 10:54 83 125/78 09/26/16 07:28 36.7 84 18 145/82 96 Room Air 09/26/16 00:00 99 Room Air 09/25/16 23:02 37.0 77 16 164/84 95 Room Air 09/25/16 20:55 82 179/83 Physical Exam General Appearance: WD/WN, no apparent distress Eyes: normal inspection, PERRL, EOMI ENT: normal ENT inspection, hearing grossly normal Neck: supple, no adenopathy, thyroid normal Respiratory/Chest: chest non-tender, lungs clear, normal breath sounds, no respiratory distress, no accessory muscle use Cardiovascular: regular rate, rhythm, no edema, no gallop, no JVD, no murmur Abdomen: normal bowel sounds, non tender, soft, no organomegaly Extremities: normal range of motion, non-tender, no pedal edema, + pertinent finding (peripherla pulsations are diminished, left foot wraped) Neurologic/Psychiatric: shell sorter II-XII nml as tested, no motor/sensory deficits, alert, normal mood/affect, oriented x 3 Skin: normal color, warm/dry, no rash Laboratory Results Last 24 Hours Test 09/25/16 20:17 09/26/16 05:10 09/26/16 07:34 09/26/16 11:48 Bedside Glucose 331 mg/dl 310 mg/dl 408 mg/dl White Blood Count 6.04 K/uL Red Blood Count 3.99 M/uL Hemoglobin 11.9 g/dL Hematocrit 35.6 % Mean Corpuscular Volume 89.2 fL Mean Corpuscular Hemoglobin 29.8 pg Mean Corpuscular Hemoglobin Concent 33.4 g/dl RDW Standard Deviation 39.3 fL RDW Coefficient of Variation 12.2 % Platelet Count 201 K/uL Mean Platelet Volume 10.6 fL Sodium Level 137 mmol/L Potassium Level 3.6 mmol/L Chloride Level 99 mmol/L Carbon Dioxide Level 29 mmol/L Anion Gap 9.0 mmol/L Blood Urea Nitrogen 8 mg/dl Creatinine 1.10 mg/dl Est Creatinine Clear Calc Drug Dose 77.3 ml/min Estimated GFR () 84.7 Estimated GFR (Non- 73.1 BUN/Creatinine Ratio 7.7 Random Glucose 393 mg/dl Calcium Level 8.3 mg/dl Beta-Hydroxybutyric Acid 6.18 mg/dL Test 09/26/16 16:24 Bedside Glucose 225 mg/dl Assessment and Plan Mr. Chowdhury is a 61-year-old male with PMHx of insulin requiring diabetes with neuropathy, nephropathy and retinopathy. presented to Ed with Abscess formation right great toe. ASSESSMENT/plan: Abscess formation right great toe S/P bedside debridement ID consult appreciated, agreed with Tomi/chu awaiting cultures IDDM with neuropathy/retinopathy Consult pharmacy for tight blood sugar control continue SSI cardiovascular and peripheral vascular disease, aspirin, Plavix, atorvastatin and metoprolol will be continued. if did not heel as expected will consult vascular surgeon as pedal pulses are diminished osteoporosis, his Fosamax will be held today. He will continue his calcium carbonate. hypothyroidism TSH in August was elevated, but his free T4 is in normal range. We will continue his Synthroid dose at 150. DVT prevention is based upon heparin and he is a full code.
[2016-09-26] MEDS: VANCOMYCIN INJ 1,300 MG in SODIUM CHLORIDE 0.9% 250ML 250 ML IV SCH (18:56)
[2016-09-26 20:46] VITALS: BP 152/84; PULSE 76
[2016-09-26] MEDS: ATORVASTATIN 40 MG TAB PO SCH (20:49)
[2016-09-26] MEDS: INSULIN GLARGINE SOLOSTAR 100 UNITS/ML 3 ML PEN SC SCH (20:50)
[2016-09-26 23:47] VITALS: BP 171/89; PULSE 72; TEMP 37; O2SAT 95
[2016-09-27] MEDS: INSULIN ASPART 100 UNITS/ML 3 ML PEN SC SCH ×5 (02:12→20:57)
[2016-09-27 06:24] LABS: BASO % 0.8 %; BASO ABS # 0.05 K/uL (0-0.2); COMPLETE YES; EOS % 4.6 %; HEMATOCRIT 37.2 % (42-52); IG% 0.3 %; LYMPH % 22.6 %; LYMPH ABS # 1.33 K/uL (1.2-3.4); MEAN CELL VOLUME 89.4 fL (80-100); MEAN CORPUSCULAR HEMOGLOBIN 29.8 pg (25-34); MEAN CORPUSCULAR HGB CONC 33.3 g/dl (32-36); MEAN PLATELET VOLUME 10.7 fL (7.4-10.4); MONO % 15.6 %; NEUT % 56.1 %; PLATELET COUNT 212 K/uL (130-400); RED BLOOD COUNT 4.16 M/uL (4.7-6.1); WHITE BLOOD COUNT 5.89 K/uL (4.8-10.8)
[2016-09-27] MEDS: LEVOTHYROXINE 150 MCG TAB PO SCH (06:32)
[2016-09-27] MEDS: HEPARIN SOD 5000 UNIT/0.5 ML CARP SQ SCH ×2 (06:33→17:30)
[2016-09-27 06:57] LABS: BUN/CREATININE RATIO 8.3 (10-20); CALCIUM 9.1 mg/dl (8.5-10.1); CREATININE 1.2 mg/dl (0.60-1.40); MAGNESIUM 1.9 mg/dl (1.8-2.4); POTASSIUM 3.9 mmol/L (3.5-5.1)
[2016-09-27 07:00] LABS: ALB/GLOB RATIO 0.8 (0.9-2); PHOSPHORUS 3.2 mg/dl (2.5-4.9)
[2016-09-27] MEDS: PIPERACILL/TAZOBAC IV 3.375 GM in DEXTROSE 5% 100ML IV SCH ×2 (07:41→15:50)
[2016-09-27] MEDS: VANCOMYCIN INJ 1,300 MG in SODIUM CHLORIDE 0.9% 250ML 250 ML IV SCH ×2 (07:41→19:03)
[2016-09-27] MEDS: ASPIRIN 81 MG ECTAB PO SCH (07:51)
[2016-09-27] MEDS: CHOLECALCIFEROL 1000 INTER.UNIT TAB PO SCH (07:51)
[2016-09-27] MEDS: PANTOprazole SOD 40 MG TAB PO SCH (07:51)
[2016-09-27] MEDS: CALCIUM CARBONATE 1250MG TAB PO SCH ×2 (07:51→20:52)
[2016-09-27] MEDS: CLOPIDOGREL BISULFATE 75 MG TAB PO SCH (07:51)
[2016-09-27 07:54] VITALS: BP 160/72; PULSE 86; TEMP 36.9; O2SAT 99
[2016-09-27] MEDS: METOPROLOL TARTRATE 25 MG TAB PO SCH (07:56)
[2016-09-27 08:16] VITALS: O2SAT 91
--- NOTE | 2016-09-27 10:10 | DIAGNOSTIC IMAGING REPORT ---
ANKLE BRACHIAL INDEX CLINICAL HISTORY: Right side diminished pedal pulses with ulceration. COMPARISON STUDY: No previous studies for comparison. FINDINGS: The brachial systolic pressure was 140 mmHg as measured on the left arm. Posterior tibial systolic pressures were 176 mmHg on the right and 100 mmHg on the left. Dorsalis pedis systolic pressures are 180 mmHg on the right and 101 mmHg on the left. These measurements indicate normal ankle brachial index of 1.3 in the right, and a diminished ankle brachial index of 0.7 on the left IMPRESSION: 1. Normal right-sided ankle-brachial index of 1.3 2. Diminished left-sided ankle brachial index of 0.7 Electronically signed by: Pablo Hooks M.D. 09/27/2016 10:08 AM Dictated Date/Time: 09/27/2016 10:06 AM
[2016-09-27] MEDS ORDERED: INSULIN GLARGINE SOLOSTAR 100 UNITS/ML 3 ML PEN SC ONE (11:00)
[2016-09-27] MEDS ORDERED: METOPROLOL SUCC 50MG EXT REL TAB PO ONE (12:30)
[2016-09-27 12:37] VITALS: BP 147/81; PULSE 77
--- NOTE | 2016-09-27 14:07 | Pharmacy Progress Note ---
Glycemic: Assessment & Plan Date of Service Sep 27, 2016. Assessment & Plan * BSGs ranging 225 - 308 mg/dl over the past 24hrs. BSGs marck overnight despite 4 units of correctional Novolog being administered. BSGs are not correcting to goal range post-prandially. * Stressor: infection. * Will increase Lantus dose based upon yesterday's TDD of insulin. Increase by ~25%. * Also, tighten Novolog parameters to achieve BSG control post-prandially. Continue overnight Novolog checks. PLAN FOR INPATIENT GLYCEMIC CONTROL: * Basal insulin: Increase - Lantus 10 units x 1 this morning (for BSG > 250) then 35 units HS then start Lantus 45 units HS tomorrow; 1/2 dose for BSG below 110 mg/dl * Correctional Insulin: Novolog Correction per scale AC; HS Goal Range: Low 140 mg/dL - High 180 mg/dL - as buffer for pt who in past has lesser insulin needs Tighten - Correction Factor: 20 mg/dL/unit AC; 30 mg/dL /unit at bedtime * Prandial insulin: Tighten - Per carb ratio of 1 unit per 5 grams CHO consumed AC; no CR at bedtime Pharmacy will continue to monitor patient daily and write orders per [facility] inpatient glycemic control protocol. Thanks. * Please note that the plan above was derived based on current level of insulin resistance and hospital stress. These recommendations are appropriate for inpatient admission only. Plan of care upon discharge will need to be reassessed to avoid potential outpatient hypo/hyperglycemia.
[2016-09-27 15:12] VITALS: BP 142/84; PULSE 74; TEMP 37.2; O2SAT 99
[2016-09-27 15:27] VITALS: Ht 172.7 cm; Wt 86.5 kg
--- NOTE | 2016-09-27 19:18 | Progress Note ---
Subjective Date of Service: Sep 27, 2016. Subjective Pt evaluation today including: conversation w/ patient, physical exam, lab review, review of studies Problem List Medical Problems: (1) Abscess of great toe, right Status: Acute (2) Cellulitis of right foot Status: Acute (3) Fall Status: Acute (4) Injury of right hip Status: Acute Review of Systems Constitutional: No chills, No fever Eyes: No worsening of vision ENT: No hearing loss Respiratory: No cough, No shortness of breath, No sputum, No wheezing Cardiac: No chest pain, No orthopnea Abdomen: No diarrhea, No nausea, No pain, No vomiting Musculoskeletal: No joint pain Male : No dysuria Neurologic: No memory loss, No numbness/tingling, No paralysis, No weakness Psychiatric: No depression symptoms Endo: No fatigue Medications Current Inpatient Medications Medications (Trade) Dose Ordered Sig/Malu Route Start Time Stop Time Status Last Admin Dose Admin Aspirin (Ecotrin Tab) 81 mg QAM PO 09/26/16 08:00 10/26/16 08:59 09/27/16 07:51 81 MG Atorvastatin Calcium (Lipitor Tab) 80 mg HS PO 09/25/16 21:00 10/25/16 20:59 09/26/16 20:49 80 MG Cholecalciferol (Vitamin D Tab) 2,000 inter.unit QAM PO 09/26/16 08:00 10/26/16 08:59 09/27/16 07:51 2,000 INTER.UNIT Clopidogrel Bisulfate (plAVix TAB) 75 mg QAM PO 09/26/16 08:00 10/26/16 08:59 09/27/16 07:51 75 MG Levothyroxine Sodium (Synthroid Tab) 150 mcg DAILYBB PO 09/26/16 06:30 10/26/16 06:59 09/27/16 06:32 150 MCG Pantoprazole Sodium (Protonix Tab) 40 mg QAM PO 09/26/16 08:00 10/26/16 08:59 09/27/16 07:51 40 MG Calcium Carbonate (oS-Lionel 500 TAB) 1,250 mg BID PO 09/25/16 20:00 10/25/16 19:59 09/27/16 07:51 1,250 MG Glucose (Glucose 40% Gel) 15-30 GRAMS 15 GRAMS... UD PRN PO 09/25/16 12:15 10/25/16 12:14 Glucose (Glucose Chew Tab) 4-8 Tablets 4 Tabl... UD PRN PO 09/25/16 12:15 10/25/16 12:14 Dextrose (Dextrose 50% 50ML Syringe) 25-50ML OF 50% DW IV FOR... UD PRN IV 09/25/16 12:15 10/25/16 12:14 Glucagon (Glucagon Inj) 1 mg UD PRN SQ 09/25/16 12:15 10/25/16 12:14 Acetaminophen (Tylenol Tab) 650 mg Q4H PRN PO 09/25/16 12:30 10/25/16 12:29 Al Hydrox/Mg Hydrox/Simethicone (Maalox Max Susp) 15 ml Q4H PRN PO 09/25/16 12:30 10/25/16 12:29 Magnesium Hydroxide (Milk Of Magnesia Susp) 30 ml Q6H PRN PO 09/25/16 12:30 10/25/16 12:29 Ondansetron HCl (Zofran Inj) 4 mg Q6H PRN IV 09/25/16 12:30 10/25/16 12:29 Heparin Sodium (Porcine) (Heparin Sq 5000 Unit/0.5ml) 5,000 unit Q12H SQ 09/25/16 18:00 10/25/16 17:59 09/27/16 17:30 5,000 UNIT Morphine Sulfate (MoRPHine SULFATE INJ) 2 mg Q4H PRN IV 09/25/16 12:30 10/09/16 12:29 Morphine Sulfate (MoRPHine SULFATE INJ) 4 mg Q4H PRN IV 09/25/16 12:30 10/09/16 12:29 Oxycodone HCl (Roxicodone Immediate Rel Tab) 10 mg Q6 PRN PO 09/25/16 12:30 10/09/16 12:29 Insulin Glargine (Lantus Solostar Pen) 35 unit QPM SC 09/25/16 21:00 09/27/16 23:59 09/26/16 20:50 35 UNIT Miscellaneous Information (Consult Glycemic Management Pharmacy) 1 ea UD PRN N/A 09/26/16 10:45 10/26/16 10:44 Vancomycin HCl 1 ea 1 ea UD PRN N/A 09/26/16 10:45 10/26/16 10:44 Vancomycin HCl/ Sodium Chloride (Vancomycin Inj/ Nss 250ml) 276 ml @ 125 mls/hr Q12H IV 09/26/16 19:00 10/06/16 18:59 09/27/16 19:03 125 MLS/HR Insulin Aspart (novoLOG ASPART) SLIDING SCALE PARAMETER AC SC 09/26/16 11:30 10/26/16 11:29 09/27/16 17:29 14 UNITS Insulin Aspart (novoLOG ASPART) SLIDING SCALE PARAMETER HS SC 09/26/16 21:00 10/26/16 20:59 09/26/16 20:50 3 UNITS Insulin Aspart (novoLOG ASPART) SLIDING SCALE PARAMETER 0200 SC 09/27/16 02:00 10/27/16 01:59 09/27/16 02:12 1 UNITS Losartan Potassium (coZAAR TAB) 25 mg QAM PO 09/28/16 08:00 10/28/16 07:59 Insulin Glargine (Lantus Solostar Pen) 45 unit HS SC 09/28/16 21:00 10/28/16 20:59 Objective Vital Signs Date Time Temp Pulse Resp B/P Pulse Ox O2 Delivery O2 Flow Rate FiO2 09/27/16 16:00 Room Air 09/27/16 15:12 37.2 74 20 142/84 99 Room Air 09/27/16 12:37 77 147/81 09/27/16 10:25 Room Air 09/27/16 08:16 91 Room Air 09/27/16 07:54 36.9 86 20 160/72 99 Room Air 09/27/16 00:00 Room Air 09/26/16 23:47 37.0 72 18 171/89 95 Room Air 09/26/16 20:46 76 152/84 Physical Exam General Appearance: WD/WN, no apparent distress Eyes: normal inspection, PERRL ENT: normal ENT inspection, hearing grossly normal Neck: supple Respiratory/Chest: chest non-tender, lungs clear, normal breath sounds, no respiratory distress Cardiovascular: regular rate, rhythm, no edema, no gallop, no JVD, no murmur Abdomen: normal bowel sounds, non tender, soft, no organomegaly, no pulsatile mass Extremities: normal range of motion, non-tender, normal inspection, no pedal edema Neurologic/Psychiatric: 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 operator II-XII nml as tested, no motor/sensory deficits, alert, normal mood/affect, oriented x 3 Skin: normal color, warm/dry Laboratory Results Last 24 Hours Test 09/26/16 20:16 09/27/16 02:07 09/27/16 05:15 09/27/16 07:30 Bedside Glucose 262 mg/dl 216 mg/dl 308 mg/dl White Blood Count 5.89 K/uL Red Blood Count 4.16 M/uL Hemoglobin 12.4 g/dL Hematocrit 37.2 % Mean Corpuscular Volume 89.4 fL Mean Corpuscular Hemoglobin 29.8 pg Mean Corpuscular Hemoglobin Concent 33.3 g/dl Platelet Count 212 K/uL Mean Platelet Volume 10.7 fL Neutrophils (%) (Auto) 56.1 % Lymphocytes (%) (Auto) 22.6 % Monocytes (%) (Auto) 15.6 % Eosinophils (%) (Auto) 4.6 % Basophils (%) (Auto) 0.8 % Neutrophils # (Auto) 3.30 K/uL Lymphocytes # (Auto) 1.33 K/uL Monocytes # (Auto) 0.92 K/uL Eosinophils # (Auto) 0.27 K/uL Basophils # (Auto) 0.05 K/uL RDW Standard Deviation 39.0 fL RDW Coefficient of Variation 12.0 % Immature Granulocyte % (Auto) 0.3 % Immature Granulocyte # (Auto) 0.02 K/uL Sodium Level 139 mmol/L Potassium Level 3.9 mmol/L Chloride Level 100 mmol/L Carbon Dioxide Level 28 mmol/L Anion Gap 11.0 mmol/L Blood Urea Nitrogen 10 mg/dl Creatinine 1.20 mg/dl Est Creatinine Clear Calc Drug Dose 70.9 ml/min Estimated GFR () 76.3 Estimated GFR (Non- 65.8 BUN/Creatinine Ratio 8.3 Random Glucose 259 mg/dl Calcium Level 9.1 mg/dl Phosphorus Level 3.2 mg/dl Magnesium Level 1.9 mg/dl Total Bilirubin 0.7 mg/dl Aspartate Amino Transf (AST/SGOT) 14 U/L Alanine Aminotransferase (ALT/SGPT) 17 U/L Alkaline Phosphatase 144 U/L Total Protein 6.8 gm/dl Albumin 3.0 gm/dl Globulin 3.8 gm/dl Albumin/Globulin Ratio 0.8 Test 09/27/16 11:26 09/27/16 16:32 Bedside Glucose 259 mg/dl 275 mg/dl Assessment and Plan Mr. Chowdhury is a 61-year-old male with PMHx of insulin requiring diabetes with neuropathy, nephropathy and retinopathy. presented to Ed with Abscess formation right great toe. ASSESSMENT/plan: Abscess formation right great toe S/P bedside debridement ID consult appreciated, agreed with Vanco zosyn was stopped awaiting cultures IDDM with neuropathy/retinopathy Consult pharmacy for tight blood sugar control continue SSI cardiovascular and peripheral vascular disease, aspirin, Plavix, atorvastatin and metoprolol will be continued. ROSETTE showed diminished circulation on left lower Ext right lower Ext (which has the wound) had adequate circulation osteoporosis, his Fosamax will be held today. He will continue his calcium carbonate. hypothyroidism TSH in August was elevated, but his free T4 is in normal range. We will continue his Synthroid dose at 150. DVT prevention is based upon heparin and he is a full code.
--- NOTE | 2016-09-27 20:33 | Infectious Disease Progress Nt ---
Progress Note Date of Service Sep 27, 2016. Subjective Pt evaluation today including: conversation w/ patient, physical exam, chart review, lab review, review of studies, conversation w/ safety consultant, review of inpatient medication list The patient is feeling better today. Offers no new complaints. Remains afebrile. Cultures growing Staph aureus. All Other Systems: Reviewed and Negative Medications Current Inpatient Medications Medications (Trade) Dose Ordered Sig/Malu Route Start Time Stop Time Status Last Admin Dose Admin Aspirin (Ecotrin Tab) 81 mg QAM PO 09/26/16 08:00 10/26/16 08:59 09/27/16 07:51 81 MG Atorvastatin Calcium (Lipitor Tab) 80 mg HS PO 09/25/16 21:00 10/25/16 20:59 09/26/16 20:49 80 MG Cholecalciferol (Vitamin D Tab) 2,000 inter.unit QAM PO 09/26/16 08:00 10/26/16 08:59 09/27/16 07:51 2,000 INTER.UNIT Clopidogrel Bisulfate (plAVix TAB) 75 mg QAM PO 09/26/16 08:00 10/26/16 08:59 09/27/16 07:51 75 MG Levothyroxine Sodium (Synthroid Tab) 150 mcg DAILYBB PO 09/26/16 06:30 10/26/16 06:59 09/27/16 06:32 150 MCG Pantoprazole Sodium (Protonix Tab) 40 mg QAM PO 09/26/16 08:00 10/26/16 08:59 09/27/16 07:51 40 MG Calcium Carbonate (oS-Lionel 500 TAB) 1,250 mg BID PO 09/25/16 20:00 10/25/16 19:59 09/27/16 07:51 1,250 MG Glucose (Glucose 40% Gel) 15-30 GRAMS 15 GRAMS... UD PRN PO 09/25/16 12:15 10/25/16 12:14 Glucose (Glucose Chew Tab) 4-8 Tablets 4 Tabl... UD PRN PO 09/25/16 12:15 10/25/16 12:14 Dextrose (Dextrose 50% 50ML Syringe) 25-50ML OF 50% DW IV FOR... UD PRN IV 09/25/16 12:15 10/25/16 12:14 Glucagon (Glucagon Inj) 1 mg UD PRN SQ 09/25/16 12:15 10/25/16 12:14 Acetaminophen (Tylenol Tab) 650 mg Q4H PRN PO 09/25/16 12:30 10/25/16 12:29 Al Hydrox/Mg Hydrox/Simethicone (Maalox Max Susp) 15 ml Q4H PRN PO 09/25/16 12:30 10/25/16 12:29 Magnesium Hydroxide (Milk Of Magnesia Susp) 30 ml Q6H PRN PO 09/25/16 12:30 10/25/16 12:29 Ondansetron HCl (Zofran Inj) 4 mg Q6H PRN IV 09/25/16 12:30 10/25/16 12:29 Heparin Sodium (Porcine) (Heparin Sq 5000 Unit/0.5ml) 5,000 unit Q12H SQ 09/25/16 18:00 10/25/16 17:59 09/27/16 17:30 5,000 UNIT Morphine Sulfate (MoRPHine SULFATE INJ) 2 mg Q4H PRN IV 09/25/16 12:30 10/09/16 12:29 Morphine Sulfate (MoRPHine SULFATE INJ) 4 mg Q4H PRN IV 09/25/16 12:30 10/09/16 12:29 Oxycodone HCl (Roxicodone Immediate Rel Tab) 10 mg Q6 PRN PO 09/25/16 12:30 10/09/16 12:29 Insulin Glargine (Lantus Solostar Pen) 35 unit QPM SC 09/25/16 21:00 09/27/16 23:59 09/26/16 20:50 35 UNIT Miscellaneous Information (Consult Glycemic Management Pharmacy) 1 ea UD PRN N/A 09/26/16 10:45 10/26/16 10:44 Vancomycin HCl 1 ea 1 ea UD PRN N/A 09/26/16 10:45 10/26/16 10:44 Vancomycin HCl/ Sodium Chloride (Vancomycin Inj/ Nss 250ml) 276 ml @ 125 mls/hr Q12H IV 09/26/16 19:00 10/06/16 18:59 09/27/16 19:03 125 MLS/HR Insulin Aspart (novoLOG ASPART) SLIDING SCALE PARAMETER AC SC 09/26/16 11:30 10/26/16 11:29 09/27/16 17:29 14 UNITS Insulin Aspart (novoLOG ASPART) SLIDING SCALE PARAMETER HS SC 09/26/16 21:00 10/26/16 20:59 09/26/16 20:50 3 UNITS Insulin Aspart (novoLOG ASPART) SLIDING SCALE PARAMETER 0200 [place] 09/27/16 02:00 10/27/16 01:59 09/27/16 02:12 1 UNITS Losartan Potassium (coZAAR TAB) 25 mg QAM PO 09/28/16 08:00 10/28/16 07:59 Insulin Glargine (Lantus Solostar Pen) 45 unit HS SC 09/28/16 21:00 10/28/16 20:59 Objective Vital Signs Date Time Temp Pulse Resp B/P Pulse Ox O2 Delivery O2 Flow Rate FiO2 09/27/16 16:00 Room Air 09/27/16 15:12 37.2 74 20 142/84 99 Room Air 09/27/16 12:37 77 147/81 09/27/16 10:25 Room Air 09/27/16 08:16 91 Room Air 09/27/16 07:54 36.9 86 20 160/72 99 Room Air 09/27/16 00:00 Room Air 09/26/16 23:47 37.0 72 18 171/89 95 Room Air 09/26/16 20:46 76 152/84 Physical Exam General Appearance: WD/WN, no apparent distress Eyes: normal inspection, sclerae normal ENT: normal ENT inspection, pharynx normal Neck: supple, no adenopathy, trachea midline Respiratory/Chest: chest non-tender, lungs clear, normal breath sounds, no respiratory distress Cardiovascular: regular rate, rhythm, no gallop, no murmur Abdomen: normal bowel sounds, non tender, soft, no organomegaly Extremities: non-tender, no calf tenderness Neurologic/Psychiatric: alert, oriented x 3 Skin: normal color, no rash Lymphatic: no adenopathy Laboratory Results RUN DATE: 09/28/16 [facility] LAB PAGE 1 RUN TIME: 1144 Specimen Inquiry PATIENT: RON MOE LOC: [facility] U # : [id number] AGE/SX: 61/M ROOM: E4 REG : 09/25/[address]: Ron Mares M. : 1955 BED: 1 DIS : STATUS: ADM IN TLOC: SPEC #: [id number] BENJA: 09/25/16 STATUS: RES REQ #: [id number] RECD: 09/25/[address]: Salvador Wayne PA SOURCE: ABSCESS ENTR: 09/25/[address]: Enio Richards M.D. [facility] Shadi Faulkner M.D. ORDERED: LOIS JIMENEZ CUL/AMAURY COMMENTS: Has Specimen Been Obtained/Collected? Y Procedure Result Verified Site GRAM STAIN Final 09/26/16-5727 RESULT MANY GRAM POSITIVE COCCI FEW GRAM POSITIVE BACILLI MANY WBCs SEEN MANY EPITHELIAL CELLS DEEP WOUND CULTURE Preliminary 09/28/16-1149 Organism 1 CORYNEBACTERIUM SPECIES QUANITY MANY SENS NO SENSITIVITY TO FOLLOW Organism 2 STAPHYLOCOCCUS AUREUS QUANITY MODERATE SENS SENSITIVITY TO FOLLOW Organism 3 STAPHYLOCOCCUS AUREUS#2 QUANITY MODERATE SENS NO SENSITIVITY TO FOLLOW IDENTIFICATION AND SUSCEPTIBILITY TESTING HAVE CONFIRMED THE TWO ORGANISMS PREVIOUSLY REPORTED ARE THE SAME ORGANISM. NO SUSCEPTIBILITY RESULTS WILL BE GENERATED ON THE SECOND ISOLATE. 2. STAPHYLOCOCCUS AUREUS Target Route Dose RX AB Cost M.I.C. IQ ------ ----- ------ -- ------ -------- - ------ TRIMET/SULFA S <=0.5/ 9.5 * OXACILLIN S 0.5 VANCOMYCIN S 2 ERYTHROMYCIN S <=0.5 TETRACYCLINE S <=4 CLINDAMYCIN S <=0.5 DAPTOMYCIN S 1 S = SENSITIVE I = INTERMEDIATE R = RESISTANT Last 24 Hours Test 09/27/16 02:07 09/27/16 05:15 09/27/16 07:30 09/27/16 11:26 Bedside Glucose 216 mg/dl 308 mg/dl 259 mg/dl White Blood Count 5.89 K/uL Red Blood Count 4.16 M/uL Hemoglobin 12.4 g/dL Hematocrit 37.2 % Mean Corpuscular Volume 89.4 fL Mean Corpuscular Hemoglobin 29.8 pg Mean Corpuscular Hemoglobin Concent 33.3 g/dl Platelet Count 212 K/uL Mean Platelet Volume 10.7 fL Neutrophils (%) (Auto) 56.1 % Lymphocytes (%) (Auto) 22.6 % Monocytes (%) (Auto) 15.6 % Eosinophils (%) (Auto) 4.6 % Basophils (%) (Auto) 0.8 % Neutrophils # (Auto) 3.30 K/uL Lymphocytes # (Auto) 1.33 K/uL Monocytes # (Auto) 0.92 K/uL Eosinophils # (Auto) 0.27 K/uL Basophils # (Auto) 0.05 K/uL RDW Standard Deviation 39.0 fL RDW Coefficient of Variation 12.0 % Immature Granulocyte % (Auto) 0.3 % Immature Granulocyte # (Auto) 0.02 K/uL Sodium Level 139 mmol/L Potassium Level 3.9 mmol/L Chloride Level 100 mmol/L Carbon Dioxide Level 28 mmol/L Anion Gap 11.0 mmol/L Blood Urea Nitrogen 10 mg/dl Creatinine 1.20 mg/dl Est Creatinine Clear Calc Drug Dose 70.9 ml/min Estimated GFR () 76.3 Estimated GFR (Non- 65.8 BUN/Creatinine Ratio 8.3 Random Glucose 259 mg/dl Calcium Level 9.1 mg/dl Phosphorus Level 3.2 mg/dl Magnesium Level 1.9 mg/dl Total Bilirubin 0.7 mg/dl Aspartate Amino Transf (AST/SGOT) 14 U/L Alanine Aminotransferase (ALT/SGPT) 17 U/L Alkaline Phosphatase 144 U/L Total Protein 6.8 gm/dl Albumin 3.0 gm/dl Globulin 3.8 gm/dl Albumin/Globulin Ratio 0.8 Test 09/27/16 16:32 09/27/16 19:56 Bedside Glucose 275 mg/dl 339 mg/dl Assessment and Plan Infected right great toe ulceration with cellulitis of the toe and foot, in the setting of diabetes and peripheral neuropathy, with cultures thus far positive for Staph aureus. Recommend continuation of IV vancomycin pending final sensitivities. Zosyn discontinued. Will follow.
[2016-09-27] MEDS: ATORVASTATIN 40 MG TAB PO SCH (20:52)
[2016-09-27] MEDS: INSULIN GLARGINE SOLOSTAR 100 UNITS/ML 3 ML PEN SC SCH (20:59)
[2016-09-27] MEDS ORDERED: INSULIN HUMAN REGULAR BOLUS IV ONE (21:00)
[2016-09-27] MEDS ORDERED: INSULIN HUMAN REGULAR IV BOLUS 4 UNIT in SYRINGE 0 ML IV ONE (21:00)
[2016-09-27 23:08] VITALS: BP 146/80; PULSE 73; TEMP 36.8; O2SAT 99
[2016-09-28] VITALS: O2SAT 99
[2016-09-28] MEDS: INSULIN ASPART 100 UNITS/ML 3 ML PEN SC SCH ×3 (02:00→13:00)
[2016-09-28] MEDS: HEPARIN SOD 5000 UNIT/0.5 ML CARP SQ SCH (06:00)
[2016-09-28] MEDS ORDERED: VANCOMYCIN TROUGH ONE (06:30)
[2016-09-28] MEDS: LEVOTHYROXINE 150 MCG TAB PO SCH (06:59)
[2016-09-28 07:00] LABS: BASO % 0.6 %; BASO ABS # 0.04 K/uL (0-0.2); COMPLETE YES; EOS % 4.8 %; HEMATOCRIT 38.3 % (42-52); IG% 0.3 %; LYMPH % 25.4 %; MEAN CELL VOLUME 89.5 fL (80-100); MEAN CORPUSCULAR HEMOGLOBIN 30.6 pg (25-34); MEAN CORPUSCULAR HGB CONC 34.2 g/dl (32-36); MEAN PLATELET VOLUME 10.6 fL (7.4-10.4); MONO % 12.9 %; PLATELET COUNT 248 K/uL (130-400); RED BLOOD COUNT 4.28 M/uL (4.7-6.1); WHITE BLOOD COUNT 6.68 K/uL (4.8-10.8)
[2016-09-28 07:19] VITALS: BP 150/76; PULSE 69; TEMP 36.6; O2SAT 97
[2016-09-28 07:27] LABS: CALCIUM 9.5 mg/dl (8.5-10.1); MAGNESIUM 1.9 mg/dl (1.8-2.4); POTASSIUM 3.4 mmol/L (3.5-5.1)
[2016-09-28 07:34] LABS: ALB/GLOB RATIO 0.8 (0.9-2); PHOSPHORUS 4.2 mg/dl (2.5-4.9)
[2016-09-28] MEDS: VANCOMYCIN INJ 1,300 MG in SODIUM CHLORIDE 0.9% 250ML 250 ML IV SCH (07:42)
[2016-09-28] MEDS: ASPIRIN 81 MG ECTAB PO SCH (07:55)
[2016-09-28] MEDS: CALCIUM CARBONATE 1250MG TAB PO SCH (07:55)
[2016-09-28] MEDS: CLOPIDOGREL BISULFATE 75 MG TAB PO SCH (07:55)
[2016-09-28] MEDS: CHOLECALCIFEROL 1000 INTER.UNIT TAB PO SCH (07:56)
[2016-09-28] MEDS: PANTOprazole SOD 40 MG TAB PO SCH (07:56)
[2016-09-28] MEDS ORDERED: LOSARTAN POTASSIUM 25 MG TAB PO SCH (08:00)
[2016-09-28] MEDS ORDERED: INSULIN GLARGINE SOLOSTAR 100 UNITS/ML 3 ML PEN SC SCH ×3 (09:00→21:00)
[2016-09-28] MEDS ORDERED: CEPH500C2 PO (15:04)
[2016-09-28] MEDS ORDERED: OXYC-57 PO (15:04)
--- NOTE | 2016-09-28 15:07 | Discharge Instructions ---
Discharge Instructions Admission Admission Date: Sep 25, 2016 at 12:26 Admission Diagnosis: Diabetic Foot Infection. Discharge Care Plan - Problem: Medical Problems: (1) Abscess of great toe, right (2) Cellulitis of right foot Care Plan - Goal(s): Improve function Care Plan - Instructions: Recommended Home Diet: 1800 Lionel Wt Reduction, Diabetic Medical/Surgical Problems Problem List: (1) Diabetic foot infection (2) Abscess of great toe, right (3) Cellulitis of right foot (4) Diabetes (5) Peripheral vascular disease VTE Core Measure Inpt VTE Proph given/why not?: Unfractionated heparin SQ Follow Up Follow-Up: follow up with wound care clinic tomorrow 8am Work Instructions Return To Work: after follow-up Laboratory Results Test Results: Hemoglobin A1c Test 08/15/16 09:01 Range/Units Estimated Average Glucose 206 mg/dl Hemoglobin A1c 8.8 H 4.5-5.6 % Ralph Escobedo Recommendations: Call your doctor if: * Temperature above 101 degrees * Pain not relieved by pain medicine ordered * There is increased drainage or redness from any incision * You have any unanswered questions or concerns. Your Doctors Instructions noted above were prepared by provider Kevyn Billings.
[2016-09-28] MEDS ORDERED: LOSA1TAB PO (15:21)
[2016-09-28 15:33] VITALS: BP 113/73; TEMP 36.8; O2SAT 98
--- NOTE | 2016-09-28 15:38 | Discharge Summary ---
Discharge Summary Admission Date: Sep 25, 2016 at 12:26 Discharge Date: Sep 28, 2016 Discharge Disposition: Home Problems/Secondary Diagnoses: Abscess formation right great toe S/P bedside debridement IDDM with neuropathy/retinopathy cardiovascular and peripheral vascular disease osteoporosis hypothyroidism HTN Immunizations: History of Tetanus Vaccine?: Unknown History of Pneumococcal: Unknown History of Hepatitis B Vaccine: Unknown Medication Reconciliation New Medications: Cephalexin Monohydrate (Keflex) 500 Mg Cap 500 MG PO QID for 14 Days, #56 CAP Losartan Potassium (Cozaar) 25 Mg Tab 1 TAB PO DAILY for 30 Days, #30 TAB 5 Refills Oxycodone/Acetaminophen 5MG/325MG (Percocet 5MG/325MG) Tab 1 TABLET PO Q6H PRN for Pain for 30 Days, #30 TAB Continued Medications: Alendronate Sodium (Alendronate Sodium) 70 Mg Tab 70 MG PO monday, #12 Aspirin Enteric Coated (Ecotrin Or Generic *) 81 Mg Ectab 81 MG PO QAM, 0 Refills Atorvastatin (Lipitor) 80 Mg Tab 80 MG PO HS, TAB Calcium Carbonate (Calcium) 600 Mg Tab 800 MG PO BID Cholecalciferol (Vitamin D) 1,000 Inter.unit Tab 2000 INTER.UNIT PO QAM, 0 Refills Clopidogrel (Plavix) 75 Mg Tab 75 MG PO QAM, TAB Insulin Aspart (Novolog) Inj 5-10 SC ACHS PRN for SLIDING SCALE, BTL Insulin Glargine (Lantus) 100 Unit/Ml Inj 35 UNITS SC QPM, VIAL Levothyroxine Sodium (Levothyroxine Sodium) 150 Mcg Tab 1 TAB PO QAM, TAB 3 Refills Metoprolol Tartrate (Lopressor) 25 Mg Tab 12.5 MG PO BID, #60 Pantoprazole (Protonix) 40 Mg Tab 40 MG PO QAM, #30 TAB Discontinued Medications: Furosemide (Lasix) 80 Mg Tab 80 MG PO DAILY PRN for FLUID RETENTION, TAB Potassium Ext Rel (Klor-Con) 20 Meq Tabcr 20 MEQ PO DAILY PRN for WHEN TAKES LASIX, TAB Discharge Exam follow up tomorrow at 8 am in wound care clinic Review of Systems: Constitutional: No chills, No fever Eyes: No worsening of vision ENT: No hearing loss, No unusual epistaxis Respiratory: No cough Cardiovascular: No chest pain, No orthopnea Abdomen: No nausea, No pain, No vomiting Musculoskeletal: No joint pain, No muscle pain Genitourinary - Male: No dysuria, No hematuria Neurologic: No memory loss, No numbness/tingling, No paralysis Psychiatric: No depression symptoms Endocrine: No excessive thirst, No fatigue Hematologic / Lymphatic: No abnormal bleeding/bruising Integumentary: No rash Hospital Course Mr. Chowdhury is a 61-year-old male with PMHx of insulin requiring diabetes with neuropathy, nephropathy and retinopathy. presented to Ed with Abscess formation right great toe. he was admitted to hospital [facility] initially started on vanco/zosyn S/P bedside debridement ID consult appreciated, agreed with Vanco zosyn was stopped cultures grew MSSA, he was switched to keflex for his IDDM with neuropathy/retinopathy Consulted pharmacy for tight blood sugar control placed him on SSI, recent A1C was 8.8 for cardiovascular and peripheral vascular disease, aspirin, Plavix, atorvastatin and metoprolol all were continued. ROSETTE showed diminished circulation on left lower Ext right lower Ext (which has the wound) had adequate circulation for his hypothyroidism TSH in August was elevated, but his free T4 is in normal range. We will continue his Synthroid dose at 150. he was found to have elevated blood pressure so he was started on losartan 25mg po daily plus continuation of his metoprolol He was instructed to get renal function test in 2 weeks found today to be within acceptable condition for discharge This includes examination of the patient, discharge planning, medication reconciliation, and communication with other providers. Discharge Instructions Please refer to the electronic Patient Visit Report (Discharge Instructions) for additional information.
[2016-09-28 15:41] VITALS: BP 113/73; PULSE 69; TEMP 36.8; O2SAT 98
[2016-09-28 16:00] VITALS: O2SAT 98
[2016-09-28] MEDS ORDERED: CEFAZOLIN SOD 2000 MG in DEXTROSE 5% 50ML IV SCH (18:00)
--- NOTE | 2016-09-28 20:39 | Infectious Disease Progress Nt ---
Progress Note Date of Service Sep 28, 2016. Subjective Pt evaluation today including: conversation w/ patient, physical exam, chart review, lab review, review of studies, conversation w/ domestic travel consultant, review of inpatient medication list offers no new complaints today. Remains afebrile. Cultures growing methicillin-susceptible Staph aureus. All Other Systems: Reviewed and Negative Medications Medications Dose Route/Sig Max Daily Dose Days Date Category Cozaar (Losartan Potassium) 25 Mg Tab 1 Tab PO DAILY 30 09/28/16 Rx Keflex (Cephalexin Monohydrate) 500 Mg Cap 500 Mg PO QID 14 09/28/16 Rx Percocet 5MG/325MG (Oxycodone/Acetaminophen) Tab 1 Tablet PO Q6H PRN 30 09/28/16 Rx Calcium (Calcium Carbonate) 600 Mg Tab 800 Mg PO BID 09/25/16 Reported Lantus (Insulin Glargine) 100 Unit/Ml Inj 35 Units SC QPM 09/25/16 Reported Levothyroxine Sodium 150 Mcg Tab 1 Tab PO QAM 05/09/16 Reported Novolog (Insulin Aspart) Inj 5-10 SC ACHS PRN 05/09/16 Reported Plavix (Clopidogrel Bisulfate) 75 Mg Tab 75 Mg PO QAM 05/09/16 Reported Alendronate Sodium 70 Mg Tab 70 Mg PO Monday02/07/16 Reported Lopressor (Metoprolol Tartrate) 25 Mg Tab 12.5 Mg PO BID 02/07/16 Reported Lipitor (Atorvastatin Calcium) 80 Mg Tab 80 Mg PO HS 03/10/15 Reported Protonix (Pantoprazole Sodium) 40 Mg Tab 40 Mg PO QAM 12/11/14 Reported Ecotrin Or Generic * (Aspirin) 81 Mg Ectab 81 Mg PO QAM 03/19/10 Reported Vitamin D (Cholecalciferol) 1,000 Inter.unit Tab 2,000 Inter.unit PO QAM 03/19/10 Reported Objective Vital Signs Date Time Temp Pulse Resp B/P Pulse Ox O2 Delivery O2 Flow Rate FiO2 09/28/16 16:00 98 Room Air 09/28/16 15:41 36.8 69 16 98 Room Air 09/28/16 15:33 36.8 16 113/73 98 Room Air 09/28/16 11:40 Room Air 09/28/16 07:19 36.6 69 18 150/76 97 Room Air 09/28/16 00:00 99 Room Air 09/27/16 23:08 36.8 73 20 146/80 99 Room Air Physical Exam General Appearance: WD/WN, no apparent distress Eyes: normal inspection, sclerae normal ENT: normal ENT inspection, pharynx normal Neck: supple, no adenopathy, trachea midline Respiratory/Chest: chest non-tender, lungs clear, normal breath sounds, no respiratory distress Cardiovascular: regular rate, rhythm, no gallop, no murmur Abdomen: normal bowel sounds, non tender, soft, no organomegaly Extremities: non-tender, no calf tenderness Neurologic/Psychiatric: alert, oriented x 3 Skin: normal color, no rash, + pertinent finding (Less erythema of foot) Lymphatic: no adenopathy Laboratory Results Last 24 Hours Test 09/28/16 02:25 09/28/16 06:30 09/28/16 07:58 09/28/16 08:23 Bedside Glucose 95 mg/dl 55 mg/dl 130 mg/dl White Blood Count 6.68 K/uL Red Blood Count 4.28 M/uL Hemoglobin 13.1 g/dL Hematocrit 38.3 % Mean Corpuscular Volume 89.5 fL Mean Corpuscular Hemoglobin 30.6 pg Mean Corpuscular Hemoglobin Concent 34.2 g/dl Platelet Count 248 K/uL Mean Platelet Volume 10.6 fL Neutrophils (%) (Auto) 56.0 % Lymphocytes (%) (Auto) 25.4 % Monocytes (%) (Auto) 12.9 % Eosinophils (%) (Auto) 4.8 % Basophils (%) (Auto) 0.6 % Neutrophils # (Auto) 3.74 K/uL Lymphocytes # (Auto) 1.70 K/uL Monocytes # (Auto) 0.86 K/uL Eosinophils # (Auto) 0.32 K/uL Basophils # (Auto) 0.04 K/uL RDW Standard Deviation 39.1 fL RDW Coefficient of Variation 12.1 % Immature Granulocyte % (Auto) 0.3 % Immature Granulocyte # (Auto) 0.02 K/uL Sodium Level 142 mmol/L Potassium Level 3.4 mmol/L Chloride Level 103 mmol/L Carbon Dioxide Level 28 mmol/L Anion Gap 11.0 mmol/L Blood Urea Nitrogen 15 mg/dl Creatinine 1.00 mg/dl Est Creatinine Clear Calc Drug Dose 85.1 ml/min Estimated GFR () 95.1 Estimated GFR (Non- 82.0 BUN/Creatinine Ratio 15.0 Random Glucose 58 mg/dl Calcium Level 9.5 mg/dl Phosphorus Level 4.2 mg/dl Magnesium Level 1.9 mg/dl Total Bilirubin 0.5 mg/dl Aspartate Amino Transf (AST/SGOT) 16 U/L Alanine Aminotransferase (ALT/SGPT) 18 U/L Alkaline Phosphatase 142 U/L Total Protein 7.1 gm/dl Albumin 3.1 gm/dl Globulin 4.0 gm/dl Albumin/Globulin Ratio 0.8 Vancomycin Level Trough 16.3 mcg/ml Test 09/28/16 11:33 Bedside Glucose 182 mg/dl Assessment and Plan Infected right great toe ulceration with cellulitis of the toe and foot, in the setting of diabetes and peripheral neuropathy, with cultures thus far positive for Staph aureus (MSSA). Given clinical improvement, lack of evidence of osteomyelitis, and negative blood cultures, patient transitioned to oral cephalexin to allow discharge. Recommend 2 week course. Would like to see in follow-up at [facility] before end of 2 weeks oral Rx to assess response.
[2016-10-14] MEDS ORDERED: CEPH500C PO (11:03)
[2016-12-02] MEDS ORDERED: CIPR-255 PO (07:48)
[2017-05-19] MEDS ORDERED: CEPH500C PO (10:33)
== END 2016-09-28 18:05 | disposition home or self-care (01) | DRG 638 ==
LOC: ENRESERVDT → ENRESERVTM → C.EDB 10:26 → C.4E 12:26
PROVIDERS: ADMIT Internal Medicine; ATTEND Internal Medicine
PROC: 0H9MXZZ Drainage of Right Foot Skin, External Approach (ICD-10-PCS; principal; 2016-09-26)
DX: E11.628 Type 2 diabetes mellitus with other skin complications (principal); L02.611 Cutaneous abscess of right foot; L03.115 Cellulitis of right lower limb; B95.61 Methicillin susceptible Staphylococcus aureus infection as the cause of diseases classified elsewhere; S91.11 Laceration without foreign body of toe without damage to nail; W25.XXXS Contact with sharp glass, sequela; L03.031 Cellulitis of right toe; E11.40 Type 2 diabetes mellitus with diabetic neuropathy, unspecified; E11.319 Type 2 diabetes mellitus with unspecified diabetic retinopathy without macular edema; E11.51 Type 2 diabetes mellitus with diabetic peripheral angiopathy without gangrene; E11.21 Type 2 diabetes mellitus with diabetic nephropathy; E03.9 Hypothyroidism, unspecified; I10 Essential (primary) hypertension; E78.5 Hyperlipidemia, unspecified; I25.10 Atherosclerotic heart disease of native coronary artery without angina pectoris; M81.0 Age-related osteoporosis without current pathological fracture; I25.2 Old myocardial infarction; Z98.1 Arthrodesis status; Z95.1 Presence of aortocoronary bypass graft; Z87.891 Personal history of nicotine dependence; Z79.02 Long term (current) use of antithrombotics/antiplatelets; Z79.4 Long term (current) use of insulin; Z79.82 Long term (current) use of aspirin; Z79.83 Long term (current) use of bisphosphonates; Z79.899 Other long term (current) drug therapy; Z95.2 Presence of prosthetic heart valve

== ENCOUNTER → 2017-01-02 | Outpatient (CLI) | payer OTHER ==
[~2017-01-02] MED LIST changes: +ASPI81TA28 PO; +CALC-393 PO; -CALC-51 PO; +CEFT1INJ57 IV; +CEPH500C PO; +CHOL2000 PO; +CIPR1TAB11 PO; -FURO80TA63 PO; +INSDGI SC; +INSU1INJ2 SQ; -INSUINJ12 SC; +LEVO175T3 PO; +LOSA1TAB PO; +NF1420 PO; -POTA20TA16 PO
[2017-01-02 18:55] LABS: THYROID STIMULATING HORMONE 4.08 uIu/ml (0.300-4.500)
== END | disposition home or self-care (01) ==
LOC: C.LABBFT 13:43
PROVIDERS: ATTEND Physician Assistant
DX: E03.9 Hypothyroidism, unspecified (principal)

== ENCOUNTER 2017-04-09 23:49 | Emergency (ER) | payer OTHER ==
[~2017-04-09] VITALS: Ht 172.7 cm; Wt 86.5 kg
[~2017-04-09 23:49] MED LIST changes: -ASPI81TA28 PO; -CEFT1INJ57 IV; -CEPH500C PO; -CHOL2000 PO; -CIPR1TAB11 PO; -INSU1INJ2 SQ; -LEVO175T3 PO; -NF1420 PO
[2017-04-09 23:52] VITALS: TEMP 36.7; Ht 172.7 cm; Wt 86.5 kg
[2017-04-10] MEDS ORDERED: LIDOCAINE HCL 2% VISC SOLN 20 ML UDC PO STA (00:01)
[2017-04-10] MEDS ORDERED: ALUMINUM/MAGNESIUM SUSP 30 ML UDC PO STA (00:01)
[2017-04-10 00:43] LABS: BASO % 0.5 %; BASO ABS # 0.04 K/uL (0-0.2); COMPLETE YES; EOS % 3.7 %; HEMATOCRIT 40.3 % (42-52); IG% 0.1 %; LYMPH % 25.5 %; LYMPH ABS # 1.86 K/uL (1.2-3.4); MEAN CORPUSCULAR HEMOGLOBIN 30.2 pg (25-34); MEAN PLATELET VOLUME 10.5 fL (7.4-10.4); MONO % 11.4 %; NEUT % 58.8 %; PLATELET COUNT 220 K/uL (130-400); RED BLOOD COUNT 4.53 M/uL (4.7-6.1); WHITE BLOOD COUNT 7.29 K/uL (4.8-10.8)
[2017-04-10 00:56] LABS: ALT/SGPT 25 U/L (12-78); AST/SGOT 15 U/L (15-37); BLOOD UREA NITROGEN 9 mg/dl (7-18); BUN/CREATININE RATIO 8.9 (10-20); CALCIUM 9.2 mg/dl (8.5-10.1); CARBON DIOXIDE 30 mmol/L (21-32); CHLORIDE 106 mmol/L (98-107); GLUCOSE 57 mg/dl (70-99); POTASSIUM 3.7 mmol/L (3.5-5.1); SODIUM 144 mmol/L (136-145)
[2017-04-10 01:01] LABS: ALKALINE PHOSPHATASE 131 U/L (45-117)
--- NOTE | 2017-04-10 01:09 | EMERGENCY ROOM VISIT NOTE ---
ED Visit Note First contact with patient: 23:51 Patient evaluated by me at bedside. His physician patient observation assistant and agree with her smiling. We will repeat troponin; Discharge to home with follow up Problem List Medical Problems: (1) Aorto-iliac disease Status: Chronic (2) DKA (diabetic ketoacidoses) Status: Resolved (3) Hyperglycemia due to type 1 diabetes mellitus Status: Resolved (4) NSTEMI (non-ST elevated myocardial infarction) Status: Resolved Current/Historical Medications Scheduled Alendronate Sodium (Alendronate Sodium), 70 MG PO monday Aspirin Enteric Coated (Ecotrin Or Generic *), 81 MG PO QAM Atorvastatin (Lipitor), 80 MG PO HS Calcium Carbonate (Calcium), 800 MG PO BID Cholecalciferol (Vitamin D), 2,000 INTER.UNIT PO QAM Clopidogrel (Plavix), 75 MG PO QAM Insulin Glargine (Lantus), 35 UNITS SC QPM Levothyroxine Sodium (Levothyroxine Sodium), 1 TAB PO QAM Losartan Potassium (Cozaar), 1 TAB PO DAILY Metoprolol Tartrate (Lopressor), 12.5 MG PO BID Pantoprazole (Protonix), 40 MG PO QAM Scheduled PRN Insulin Aspart (Novolog), 5-10 SC ACHS PRN for SLIDING SCALE Allergies Coded Allergies: No Known Allergies (Verified , 09/25/16) Vital Signs Date Time Temp Pulse Resp B/P (MAP) Pulse Ox O2 Delivery O2 Flow Rate FiO2 04/10/17 00:27 79 04/09/17 23:52 36.7 91 18 113/69 90 Room Air Laboratory Results 04/10/17 00:25 Red Blood Count 4.53, Mean Corpuscular Volume 89.0, Mean Corpuscular Hemoglobin 30.2, Mean Corpuscular Hemoglobin Concent 34.0, Mean Platelet Volume 10.5, Neutrophils (%) (Auto) 58.8, Lymphocytes (%) (Auto) 25.5, Monocytes (%) (Auto) 11.4, Eosinophils (%) (Auto) 3.7, Basophils (%) (Auto) 0.5, Neutrophils # (Auto ) 4.28, Lymphocytes # (Auto) 1.86, Monocytes # (Auto) 0.83, Eosinophils # (Auto ) 0.27, Basophils # (Auto) 0.04 04/10/17 00:25 Test 04/10/17 00:25 04/10/17 00:33 04/10/17 00:59 White Blood Count 7.29 K/uL (4.8-10.8) Red Blood Count 4.53 M/uL (4.7-6.1) Hemoglobin 13.7 g/dL (14.0-18.0) Hematocrit 40.3 % (42-52) Mean Corpuscular Volume 89.0 fL (80-100) Mean Corpuscular Hemoglobin 30.2 pg (25-34) Mean Corpuscular Hemoglobin Concent 34.0 g/dl (32-36) Platelet Count 220 K/uL (130-400) Mean Platelet Volume 10.5 fL (7.4-10.4) Neutrophils (%) (Auto) 58.8 % Lymphocytes (%) (Auto) 25.5 % Monocytes (%) (Auto) 11.4 % Eosinophils (%) (Auto) 3.7 % Basophils (%) (Auto) 0.5 % Neutrophils # (Auto) 4.28 K/uL (1.4-6.5) Lymphocytes # (Auto) 1.86 K/uL (1.2-3.4) Monocytes # (Auto) 0.83 K/uL (0.11-0.59) Eosinophils # (Auto) 0.27 K/uL (0-0.5) Basophils # (Auto) 0.04 K/uL (0-0.2) RDW Standard Deviation 43.6 fL (36.4-46.3) RDW Coefficient of Variation 13.3 % (11.5-14.5) Immature Granulocyte % (Auto) 0.1 % Immature Granulocyte # (Auto) 0.01 K/uL (0.00-0.02) Anion Gap 8.0 mmol/L (3-11) Est Creatinine Clear Calc Drug Dose 85.1 ml/min Estimated GFR () 95.1 Estimated GFR (Non- 82.0 BUN/Creatinine Ratio 8.9 (10-20) Calcium Level 9.2 mg/dl (8.5-10.1) Total Bilirubin 0.8 mg/dl (0.2-1) Direct Bilirubin 0.2 mg/dl (0-0.2) Aspartate Amino Transf (AST/SGOT) 15 U/L (15-37) Alanine Aminotransferase (ALT/SGPT) 25 U/L (12-78) Alkaline Phosphatase 131 U/L (45-117) Troponin I < 0.015 ng/ml (0-0.045) Total Protein 7.4 gm/dl (6.4-8.2) Albumin 3.7 gm/dl (3.4-5.0) Lipase 77 U/L (73-393) Bedside Troponin I < 0.030 ng/ml (0-0.045) Bedside Glucose 92 mg/dl (70-99) Medications Administered Medications (Trade) Dose Ordered Sig/Malu Route Start Time Stop Time Status Last Admin Dose Admin Lidocaine HCl (Viscous Lidocaine 2% Soln) 10 ml NOW STAT PO 04/10/17 00:01 04/10/17 00:03 DC 04/10/17 00:30 10 ML Al Hydroxide/Mg Hydroxide (Maalox Susp) 30 ml NOW STAT PO 04/10/17 00:01 04/10/17 00:03 DC 04/10/17 00:30 30 ML Departure Information Referrals Enio Richards M.D. (PCP) Patient Instructions My [facility]
[2017-04-10] MEDS ORDERED: CHOL2000 PO (01:14)
[2017-04-10] MEDS ORDERED: LEVO175T3 PO (01:15)
[2017-04-10] MEDS ORDERED: INSU1INJ2 SQ (01:16)
[2017-04-10] MEDS ORDERED: ASPI81TA28 PO (01:16)
[2017-04-10] MEDS ORDERED: PANTOprazole SOD 40 MG TAB PO STA (01:42)
[2017-04-10 02:03] VITALS: O2SAT 99
--- NOTE | 2017-04-10 03:08 | EMERGENCY ROOM VISIT NOTE ---
History First contact with patient: 23:51 Chief Complaint: ABDOMINAL PAIN Stated Complaint: UPPER ABDOMINAL PAIN History of Present Illness The patient is a 61 year old male who presents to the Emergency Room with complaints of intermittent epigastric discomfort for the past day. Patient states yesterday when he had some soda he had some epigastric discomfort that resolved within the hour. Patient states today when he had a tomato and pepper steroids had a similar episode. Patient states he is currently asymptomatic. He is to be a PPI. His family care doctor told him to stop this. Patient had a EGD many years ago but nothing recent. Patient denies exertional chest pain, dyspnea, abdominal pain, vomiting, diarrhea, black or blood in the stool, diaphoresis, nausea, vomiting, diarrhea, feeling of impending doom. No injury to the area. He had an echo earlier this year that was normal per patient. 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 He is only on a baby aspirin. He does have a heart valve replacement. He has had a CABG in the past. No recent stress test. Review of Systems See HPI for pertinent positives & negatives. A total of 10 systems reviewed and were otherwise negative. Past Medical/Surgical History Medical Problems: (1) Aorto-iliac disease (2) Coronary artery disease (3) Diabetes (4) Diabetic foot infection (5) Diabetic foot ulcer associated with type 1 diabetes mellitus (6) Diabetic peripheral neuropathy associated with type 1 diabetes mellitus (7) DKA (diabetic ketoacidoses) (8) Foot deformity (9) Foot drop (10) Hyperglycemia due to type 1 diabetes mellitus (11) Loss of sensation (12) NSTEMI (non-ST elevated myocardial infarction) (13) Osteomyelitis of left foot (14) Peripheral vascular disease (15) Status post partial amputation of foot Family History Alzheimer's disease MOTHER Asthma Diabetes mellitus BROTHER SISTER GRANDMOTHER Aunt Maternal Aunt Esophageal cancer FATHER FH: kidney cancer Paternal Uncle Lung cancer Paternal Aunt Tobacco abuse Paternal Aunt Social History Smoking Status: Never Smoker Drug Use: none Marital Status: Occupation Status: disabled Current/Historical Medications Scheduled Alendronate Sodium (Alendronate Sodium), 70 MG PO WK Aspirin (Aspirin Ec), 81 MG PO QAM Atorvastatin (Lipitor), 80 MG PO HS Calcium Carbonate (Calcium), 600 MG PO DAILY Cholecalciferol (Vitamin D3), 1 CAP PO QAM Clopidogrel (Plavix), 75 MG PO QAM Insulin Aspart (Novolog Penfill), 5-10 UNITS SQ ACHS Insulin Glargine (Lantus), 35 UNITS SC QPM Levothyroxine Sodium (Levothyroxine Sodium), 175 MCG PO DAILY Losartan Potassium (Cozaar), 1 TAB PO DAILY Metoprolol Tartrate (Lopressor), 12.5 MG PO BID Pantoprazole (Protonix), 40 MG PO QAM Allergies Coded Allergies: No Known Allergies (Verified , 04/10/17) Physical Exam Vital Signs Date Time Temp Pulse Resp B/P (MAP) Pulse Ox O2 Delivery O2 Flow Rate FiO2 04/10/17 02:03 80 18 92/41 98 Room Air 04/10/17 02:03 99 Room Air 04/10/17 02:03 99 Room Air 04/10/17 00:27 79 04/09/17 23:52 36.7 91 18 113/69 90 Room Air Physical Exam VITALS: Vitals are noted on the nurse's note and reviewed by myself. Vital signs stable. GENERAL: Pleasant male, in no acute distress, nondiaphoretic, well-developed well-nourished. SKIN: The skin was without rashes, erythema, edema, or bruising. There is no tenting of the skin. Capillary reflex less than 2 seconds. HEAD: Normocephalic atraumatic. EARS: External auditory canals clear, tympanic membranes pearly bobo without erythema or effusion bilaterally. EYES: Pupils equal round and reactive to light and accommodation. Conjunctivae without injection, sclerae without icterus. Extraocular movements intact. NOSE: Patent, turbinates without inflammation or discharge. MOUTH: Mucous membranes moist. Pharynx without erythema or exudate. Uvula midline. Airway patent. Tongue does not deviate. NECK: Supple without nuchal rigidity. No lymphadenopathy. No thyromegaly. Cervical spine is nontender. No JVD. HEART: Regular rate and rhythm 2/6 systolic murmur LUNGS: Clear to auscultation bilaterally without wheezes, rales or rhonchi. No dullness to percussion. No retractions or accessory muscle use. ABDOMEN: Positive bowel sounds x 4. Normal tympanic percussion. Soft, nontender, without masses or organomegaly. Zhu sign negative. No guarding or rebound tenderness. MUSCULOSKELETAL: No muscle atrophy, erythema, or edema noted. NEURO: Patient was alert and oriented to person place and time. Normal sensation to light and sharp touch. No focal neurological deficits. Medical Decision & Procedures Laboratory Results 04/10/17 00:25 Red Blood Count 4.53, Mean Corpuscular Volume 89.0, Mean Corpuscular Hemoglobin 30.2, Mean Corpuscular Hemoglobin Concent 34.0, Mean Platelet Volume 10.5, Neutrophils (%) (Auto) 58.8, Lymphocytes (%) (Auto) 25.5, Monocytes (%) (Auto) 11.4, Eosinophils (%) (Auto) 3.7, Basophils (%) (Auto) 0.5, Neutrophils # (Auto ) 4.28, Lymphocytes # (Auto) 1.86, Monocytes # (Auto) 0.83, Eosinophils # (Auto ) 0.27, Basophils # (Auto) 0.04 04/10/17 00:25 Test 04/10/17 00:25 04/10/17 02:25 04/10/17 02:59 White Blood Count 7.29 K/uL (4.8-10.8) Red Blood Count 4.53 M/uL (4.7-6.1) Hemoglobin 13.7 g/dL (14.0-18.0) Hematocrit 40.3 % (42-52) Mean Corpuscular Volume 89.0 fL (80-100) Mean Corpuscular Hemoglobin 30.2 pg (25-34) Mean Corpuscular Hemoglobin Concent 34.0 g/dl (32-36) Platelet Count 220 K/uL (130-400) Mean Platelet Volume 10.5 fL (7.4-10.4) Neutrophils (%) (Auto) 58.8 % Lymphocytes (%) (Auto) 25.5 % Monocytes (%) (Auto) 11.4 % Eosinophils (%) (Auto) 3.7 % Basophils (%) (Auto) 0.5 % Neutrophils # (Auto) 4.28 K/uL (1.4-6.5) Lymphocytes # (Auto) 1.86 K/uL (1.2-3.4) Monocytes # (Auto) 0.83 K/uL (0.11-0.59) Eosinophils # (Auto) 0.27 K/uL (0-0.5) Basophils # (Auto) 0.04 K/uL (0-0.2) RDW Standard Deviation 43.6 fL (36.4-46.3) RDW Coefficient of Variation 13.3 % (11.5-14.5) Immature Granulocyte % (Auto) 0.1 % Immature Granulocyte # (Auto) 0.01 K/uL (0.00-0.02) Anion Gap 8.0 mmol/L (3-11) Est Creatinine Clear Calc Drug Dose 85.1 ml/min Estimated GFR () 95.1 Estimated GFR (Non- 82.0 BUN/Creatinine Ratio 8.9 (10-20) Calcium Level 9.2 mg/dl (8.5-10.1) Total Bilirubin 0.8 mg/dl (0.2-1) Direct Bilirubin 0.2 mg/dl (0-0.2) Aspartate Amino Transf (AST/SGOT) 15 U/L (15-37) Alanine Aminotransferase (ALT/SGPT) 25 U/L (12-78) Alkaline Phosphatase 131 U/L (45-117) Troponin I < 0.015 ng/ml (0-0.045) Total Protein 7.4 gm/dl (6.4-8.2) Albumin 3.7 gm/dl (3.4-5.0) Lipase 77 U/L (73-393) Bedside Troponin I < 0.030 ng/ml (0-0.045) Bedside Glucose 148 mg/dl (70-99) Medications Administered Medications (Trade) Dose Ordered Sig/Malu Route Start Time Stop Time Status Last Admin Dose Admin Lidocaine HCl (Viscous Lidocaine 2% Soln) 10 ml NOW STAT PO 04/10/17 00:01 04/10/17 00:03 DC 04/10/17 00:30 10 ML Al Hydroxide/Mg Hydroxide (Maalox Susp) 30 ml NOW STAT PO 04/10/17 00:01 04/10/17 00:03 DC 04/10/17 00:30 30 ML Pantoprazole Sodium (Protonix Tab) 40 mg NOW STAT PO 04/10/17 01:42 04/10/17 01:43 DC 04/10/17 02:03 40 MG ED Course Prior records/ancillary studies reviewed. Triage Nursing notes reviewed. The patient's history was concerning for chest pain. Differential diagnosis: Etiologies such as cardiac ischemia, aortic dissection, pulmonary embolism, pneumonia, pneumothorax, musculoskeletal, infections, pericarditis, myocarditis , esophageal rupture, gastrointestinal, as well as others were entertained. Physical examination: As above. ER treatment provided: GI cocktail On reassessment the patient felt better. Diagnostic interpretation by me: The electrocardiogram was negative for pathologic change. Normal sinus, right bundle branch block, no acute ST-T wave changes, rate of 81. Impression right bundle branch block unchanged from prior EKG interpreted by myself The labs revealed negative troponin 2 that are 2 hours apart Hypoglycemic. Patient was fed and repeat blood sugar was improved Repeat blood sugar was improved and was 113 per nursing Imaging studies: Chest x-ray without acute consolidation, pneumothorax or free air per my interpretation Exam and history seem consistent with epigastric discomfort most likely related to acid reflux. Patient used to be on a PPI. He was restarted on this medication. He is advised follow-up with family care for further evaluation and workup or here in the ER sooner for chest pain, difficulty breathing, black or blood in the stool, worsening signs or symptoms or as needed. Patient had a normal EKG with 2 troponins are negative to hours apart. I feel like this is less likely to be cardiac in etiology. By the evaluation outlined above emergent etiologies such as cardiac ischemia, aortic dissection, pulmonary embolism, pneumonia, pneumothorax, infections, pericarditis, myocarditis, as well as others were deemed relatively unlikely. The pt informed about the findings as listed above. All questions were answered and pleased with the treatment. Return instructions were outlined and the patient was discharged in stable condition. Referral: The patient was referred back to primary care physician for follow-up in 2 to 3 days for a recheck of the current condition. case reviewed with my Attending Medical Decision As above Impression Primary Impression: Abdominal discomfort, epigastric Additional Impression: Hypoglycemia due to type 2 diabetes mellitus Departure Information Dispostion Home / Self-Care Condition GOOD Referrals Enio Richards M.D. (PCP) Patient Instructions My [facility] Additional Instructions Monitor your blood sugar. Try Maalox or Zantac for breakthrough symptoms for reflux. Avoid large meals. Avoid acidic foods. Rest and drink plenty of fluids as tolerated. Continue current medications. Avoid strenuous activities and anything that worsens your pain. Resume normal activities once your symptoms resolve. Return to the ER immediately for worsening or persistent chest pain, abdominal pain, black or blood in your stools, vomiting, fevers, chest pains, difficulty breathing, worsening of your condition, or as needed. Follow up with your primary physician in 2-3 days for a recheck of your current condition. Problem Qualifiers
[2017-04-10 03:29] VITALS: BP 126/72; PULSE 82; O2SAT 98
--- NOTE | 2017-04-10 07:12 | DIAGNOSTIC IMAGING REPORT ---
CHEST ONE VIEW PORTABLE HISTORY: Atypical CHEST PAIN COMPARISON: Chest 11/10/2015. FINDINGS: The lungs are clear. Cardiac silhouette is normal in size. No pleural effusions. No pneumothorax. Poststernotomy changes. IMPRESSION: No acute process. Electronically signed by: Otf Avila M.D. 04/10/2017 7:11 AM Dictated Date/Time: 04/10/2017 7:10 AM
[2017-05-19] MEDS ORDERED: CEPH500C PO (10:33)
== END 2017-04-10 03:30 | disposition home or self-care (01) ==
LOC: C.EDB 23:50
DX: R10.13 Epigastric pain (principal); Z95.1 Presence of aortocoronary bypass graft; I25.10 Atherosclerotic heart disease of native coronary artery without angina pectoris; Z80.0 Family history of malignant neoplasm of digestive organs; E11.649 Type 2 diabetes mellitus with hypoglycemia without coma; Z79.4 Long term (current) use of insulin; L89.892 Pressure ulcer of other site, stage 2

== ENCOUNTER → 2017-04-19 | Outpatient (CLI) | payer OTHER ==
[~2017-04-19] MED LIST changes: -ASPEC81 PO; +ASPI81TA28 PO; +CEFT1INJ57 IV; +CEPH500C PO; -CHOL100010 PO; +CHOL2000 PO; +CIPR1TAB11 PO; +INSU1INJ2 SQ; -LEVO150T9 PO; +LEVO175T3 PO; -NVLGI SC
--- NOTE | 2017-04-19 09:01 | DIAGNOSTIC IMAGING REPORT ---
ABDOMINAL ULTRASOUND, RIGHT UPPER QUADRANT HISTORY: Right upper quadrant abdominal pain. Type 1 diabetes. COMPARISON: Right upper quadrant ultrasound January 05, 2007 and CTA of the abdomen and pelvis January 30, 2015. FINDINGS: Liver morphology is normal. No hepatic lesions are then identified. There is no biliary ductal dilatation. The common bile duct measures 6 mm in caliber. Gallbladder is normal. No gallstones are identified. The pancreatic body is normal. Head and tail are partially obscured. There is no right hydronephrosis. IMPRESSION: No significant abnormality identified within the right upper quadrant. Electronically signed by: Benji Oconnell M.D. 04/19/2017 9:00 AM Dictated Date/Time: 04/19/2017 8:55 AM
== END | disposition home or self-care (01) ==
LOC: C.ULTR 08:15
PROVIDERS: ATTEND Internal Medicine
DX: E10.29 Type 1 diabetes mellitus with other diabetic kidney complication (principal); E10.65 Type 1 diabetes mellitus with hyperglycemia; R10.11 Right upper quadrant pain

== ENCOUNTER → 2017-05-17 | Outpatient (CLI) | payer OTHER ==
[2017-05-17 13:04] LABS: ESTIMATED AVERAGE GLUCOSE 272 mg/dl; HA1C FLAG Normal (Normal)
[2017-05-17 13:12] LABS: THYROID STIMULATING HORMONE 0.166 uIu/ml (0.300-4.500)
[2017-05-17 13:28] LABS: BLOOD UREA NITROGEN 12 mg/dl (7-18)
== END | disposition home or self-care (01) ==
LOC: C.LABBFT 08:11
PROVIDERS: ATTEND Emergency Medicine
DX: E10.39 Type 1 diabetes mellitus with other diabetic ophthalmic complication (principal); E03.9 Hypothyroidism, unspecified; L97.529 Non-pressure chronic ulcer of other part of left foot with unspecified severity; E10.622 Type 1 diabetes mellitus with other skin ulcer

== ENCOUNTER 2017-05-19 14:49 | Inpatient (IN) | payer OTHER ==
[~2017-05-19] VITALS: Ht 172.7 cm; Wt 84.5 kg
[~2017-05-19 14:49] MED LIST changes: -CEFT1INJ57 IV; -CIPR1TAB11 PO; -GADAVIST IV PRN
[2017-05-19 17:07] VITALS: BP 121/72; PULSE 83; TEMP 37.2; O2SAT 97
[2017-05-19] MEDS ORDERED: GLUCOSE 40% GEL 15 GM TUBE PO PRN (18:00)
[2017-05-19] MEDS ORDERED: DEXTROSE 50% 50 ML SYR IV PRN (18:00)
[2017-05-19] MEDS ORDERED: GLUCAGON FOR INJ 1 MG VIAL SQ PRN (18:00)
[2017-05-19] MEDS ORDERED: MAGNESIUM HYDROXIDE SUSP 30 ML UDC PO PRN (18:00)
[2017-05-19] MEDS ORDERED: ACETAMINOPHEN 325 MG TAB PO PRN (18:00)
[2017-05-19] MEDS ORDERED: ONDANSETRON INJ 2 MG/ML 2 ML VIAL IV PRN (18:00)
[2017-05-19] MEDS ORDERED: GLUCOSE 10 TABS/TUBE PO PRN (18:00)
[2017-05-19 18:09] VITALS: BP 121/72; PULSE 83; TEMP 37.2; BMI 28.3
--- NOTE | 2017-05-19 18:22 | History and Physical ---
History & Physical Date & Time of Service: May 19, 2017 at 18:03 Chief Complaint: Recurring Ostemyelitis - Left Lateral Foot Primary Care Physician: Enio Richards M.D. History of Present Illness Source: patient 62 y/o M who was a direct admission from Dr. Eddy of Wound Care. Pt was admitted in September with an osteo of the L 5th metatarsal that required amputation with Dr. Soto. He was discharged to home with hyperbaric and abx tx and had done quite well. He was back to wearing regular shoes and ambulating without issue. 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 He developed blisters at that time and went to see Dr. Eddy as this was concerning to him. Dr. Eddy has been monitoring this, particularly the L 5th metatarsal. He has had a wound vac in place the last two days while awaiting cxs to return. They came back + today for staph and pt was directed to [facility]. He states he does have some pain to the region. Pt denies fever, SOB, chest pain, abd pain, n/v/c/d, LE swelling. Discussed with Dr. Eddy who feels that pt's ulceration is not improving. MRI done today shows L 5th metatarsal osteo. Past Medical/Surgical History Medical Problems: (1) Aorto-iliac disease Status: Chronic (2) DKA (diabetic ketoacidoses) Status: Resolved (3) Hyperglycemia due to type 1 diabetes mellitus Status: Resolved (4) NSTEMI (non-ST elevated myocardial infarction) Status: Resolved Hypothyroid CAD s/p STEMI with CABG, AVR HTN Hyperlipidemia PAD s/p b/l iliac stents Diabetic neuropathy, nephropathy, retinopathy Family History Alzheimer's disease MOTHER Asthma Diabetes mellitus BROTHER SISTER GRANDMOTHER Aunt Maternal Aunt Esophageal cancer FATHER FH: kidney cancer Paternal Uncle Lung cancer Paternal Aunt Tobacco abuse Paternal Aunt Denies CT, CVA Social History Smoking Status: Former Smoker (quit 12 years ago) Smokeless Tobacco Use: Yes (occasionally) Alcohol Use: socially (rarely) Drug Use: none Marital Status: Occupational Status: disabled Immunizations History of Tetanus Vaccine?: Unknown History of Pneumococcal: Unknown History of Hepatitis B Vaccine: Unknown Multi-Drug Resistant Organisms History of MDRO: No Allergies Coded Allergies: No Known Allergies (Verified , 04/10/17) Home Medications Scheduled Alendronate Sodium (Alendronate Sodium), 70 MG PO WK Aspirin (Aspirin Ec), 81 MG PO QAM Atorvastatin (Lipitor), 80 MG PO HS Calcium Carbonate (Calcium), 600 MG PO DAILY Cholecalciferol (Vitamin D3), 1 CAP PO QAM Clopidogrel (Plavix), 75 MG PO QAM Insulin Aspart (Novolog Penfill), 5-10 UNITS SQ ACHS Insulin Glargine (Lantus), 35 UNITS SC QPM Levothyroxine Sodium (Levothyroxine Sodium), 175 MCG PO DAILY Losartan Potassium (Cozaar), 1 TAB PO DAILY Metoprolol Tartrate (Lopressor), 12.5 MG PO BID Pantoprazole (Protonix), 40 MG PO QAM Review of Systems Reviewed and neg Physical Exam Vital Signs Date Time Temp Pulse Resp B/P (MAP) Pulse Ox O2 Delivery O2 Flow Rate FiO2 05/19/17 17:07 37.2 83 16 121/72 (88) 97 Room Air General Appearance: WD/WN, no apparent distress Head: normocephalic, atraumatic Eyes: normal inspection, EOMI Respiratory/Chest: normal breath sounds, no respiratory distress Cardiovascular: regular rate, rhythm, no edema Abdomen/GI: non tender, soft Extremities/Musculoskelatal: no calf tenderness, no pedal edema Neurologic/Psych: alert, normal mood/affect, oriented x 3 Skin: warm/dry, + pertinent finding (Mild erythema distal to bandaging with a hematoma on plantar surface of L foot, multiple blisters with eschars, bandaging in place is clean and dry) Diagnostics Laboratory Results Results Past 24 Hours Test 05/19/17 17:52 Range/Units Diagnostic Radiology LE MRI: IMPRESSION: 1. Findings consistent with osteomyelitis of the base of the left fifth metatarsal. Overlying wound with mild cellulitis. No abscess. 2. Status post post amputation of the left fifth metatarsal at the level of the proximal shaft. 3. Mild marrow edema within the distal phalanges of the left second and third toes with preserved T1 signal. The findings favor osteitis. Impression Assessment and Plan 62 y/o M who was a direct admit from Dr. Eddy for recurrent osteomyelitis that has failed outpt management Recurrent osteo: L 5th metatarsal Cx + for MRSA MRI as noted Dapto started Pt was active with Dr. Soto, Dr. Ennis, Dr. Eddy--all have been consulted CBC, PRP, Mg, Phos pending DM: A1c pending Manages at home with SSI and lantus 35units HS Will give only 1/2 of lantus tonight for possible OR tomorrow CAD, PAD with iliac stents: aspirin/plavix Last dose was this AM Will hold tomorrow for possible OR--this should be restarted PRAVEEN if no plans for OR Continue other home meds Hypothyroid: continue home meds Other: Full code, although does state that he would not want a feeding tube or prolonged mechanical life support. "That isn't real living". SCDs for DVT proph given possible OR DM AHA diet tonight, to NPO in AM for possible OR Level of Care Med/Surg Resuscitation Status FULL RESUSCITATION VTE Prophylaxis VTE Risk Assessment Done? Y/N: Yes Risk Level: Low
[2017-05-19 18:33] LABS: HEMATOCRIT 35.9 % (42-52); MEAN CELL VOLUME 87.6 fL (80-100); MEAN CORPUSCULAR HGB CONC 34.3 g/dl (32-36); MEAN PLATELET VOLUME 9.8 fL (7.4-10.4); PLATELET COUNT 296 K/uL (130-400); WHITE BLOOD COUNT 8.73 K/uL (4.8-10.8)
[2017-05-19 19:01] LABS: CALCIUM 8.9 mg/dl (8.5-10.1); MAGNESIUM 1.7 mg/dl (1.8-2.4); PHOSPHORUS 2.5 mg/dl (2.5-4.9); POTASSIUM 4.1 mmol/L (3.5-5.1)
[2017-05-19] MEDS ORDERED: INSULIN GLARGINE SOLOSTAR 100 UNITS/ML 3 ML PEN SC SCH (21:00)
[2017-05-19] MEDS ORDERED: INSULIN ASPART 100 UNITS/ML 3 ML PEN SC SCH (21:00)
--- NOTE | 2017-05-19 21:46 | Anesthesiology Progress Note ---
Pre-OP Anesthesia Assessment Date of Note May 19, 2017. Review patient information reviewed, chart reviewed, labs reviewed, acceptable for surgery Notes 62 yo male diagnosed with osteomyelitis left fifth metatarsal. PMH includes CAD /CABG/AVR, DM, HTN, PAD, GERD, hypothyroidism. Pt denies having side effects from anesthesia in the past. He is edentulous and has a normal airway on exam. It is noted that he has been on clopidogrel until this morning. Mac vs GA described. He expressed understanding and signed informed consent.
[2017-05-19] MEDS: INSULIN GLARGINE SOLOSTAR 100 UNITS/ML 3 ML PEN SC SCH (21:54)
[2017-05-19] MEDS: METOPROLOL TARTRATE 25 MG TAB PO SCH (21:55)
[2017-05-19] MEDS: ATORVASTATIN 40 MG TAB PO SCH (21:56)
[2017-05-19] MEDS ORDERED: OXYCODONE/ACETAMINOPHEN 5-325 TAB PO PRN (22:00)
[2017-05-19 23:30] VITALS: BP 103/58; PULSE 88; TEMP 37.1; O2SAT 98
--- NOTE | 2017-05-19 23:54 | ORTHOPEDIC CONSULTATION ---
DATE OF CONSULTATION: 05/19/2017 CHIEF COMPLAINT: Diabetic ulceration of the left foot. HISTORY OF PRESENT ILLNESS: Mr. Chowdhury is a 62-year-old male, known to me from prior diabetic foot ulceration surgery in which he had a partial resection of his left foot fifth ray. He also has an old fracture of his ankle, which has healed with some varus alignment to his ankle. 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 He has significant neuropathy. His prior wound had healed well after surgery. His ABIs in September are 0.7. He had done well until about 1 month ago. He has special shoes that he wears. He had done extra walking because his mother was in the hospital. He developed blisters on both feet. The one on the right foot has healed up well, the one on the left foot was treated in the wound clinic very shortly after it began. Wound VAC was utilized and this did not result in resolution of the wound. He has also been offloaded. He was seen, the wound was felt to be more complicated and MRI was ordered. An x-ray is pending. The MRI suggests the possibility of osteomyelitis involving the base of the fifth metatarsal. He is afebrile. His vital signs are stable. White count is normal. Hematocrit 36. His PRP in glucoses are noted. The MRI shows altered signal in the base of the fifth metatarsal along with an open wound, consistent with possible early osteomyelitis. Radiographs are pending. He does not have any palpable pulses, but capillary refill is less than 2 seconds in all of his digits and he has no blackish discoloration, indicative of ischemia. He has minimal movement of the ankle in any plane. There is some mild varus alignment. He has minimal movement of his toes. There are resolving benign superficial blisters on the tips of the second and third toes due to recent trauma. There is [id number] cellulitis around the leg area. He does not have significant swelling. There is not much in the way of tenderness. There is an ulceration on the plantar and lateral aspect of the foot at the base of the fifth metatarsal, 2-3 cm long and 3-4 cm wide. The lesion palpates directly down to the base of the fifth metatarsal and there is probably some exposed peroneal tendon macerated within the wound. There is no abscess. There is a foul odor. There is no significant drainage, but there is significant fibrinous exudate and necrotic tissue within the base of the wound itself. Culture has grown out MRSA. He is on daptomycin. He has a diabetic foot ulceration compounded by pressure overload. I would recommend surgery to remove the base of the fifth metatarsal, debride the wound and then apply wound VAC. He will need antibiotics subsequently as well as wound care and offloading. An informed consent is obtained. We discussed the risks of infection, bleeding, pain, scarring, nerve and blood vessel damage, blood clot, embolism, heart attack, stroke and . He is not on any blood thinners. He did well after his prior surgery. We will plan for surgery tomorrow morning. There is a risk of needing further surgery and further amputation, if things do not heal up well. He is n.p.o. after midnight.
[2017-05-20] VITALS (9 sets, daily range): BP systolic 118–177; BP diastolic 75–82; PULSE 72–93; TEMP 36.5–37.9; O2SAT 95–98
[2017-05-20] MEDS ORDERED: NURSING DECISION MEDICATION ORDER SCH (01:15)
[2017-05-20] MEDS: LEVOTHYROXINE 175 MCG TAB PO SCH (05:33)
[2017-05-20] MEDS ORDERED: INSULIN ASPART 100 UNITS/ML 3 ML PEN SC SCH (06:00)
--- NOTE | 2017-05-20 06:07 | DIAGNOSTIC IMAGING REPORT ---
LEFT FOOT MIN 3 VIEWS ROUTINE CLINICAL HISTORY: diabetic foot ulcer infection COMPARISON: None. DISCUSSION: Severe degenerative change throughout the foot. Prior resection of the bulk of the fifth metatarsal and associated phalanges. No evidence for a true destructive process. Degenerative change of the intertarsal as well as tarsometatarsal joints. Moderate soft tissue edematous change in the region of the excised fifth metatarsal. Soft tissue ulceration near the base of the residual fifth metatarsal. There is no evidence for soft tissue swelling. IMPRESSION: Soft tissue edema. Prior operative change. Degenerative bony change. No evidence for osteomyelitis The above report was generated using voice recognition software. It may contain grammatical, syntax or spelling errors. Electronically signed by: Tyree Jasmine M.D. 05/20/2017 6:05 AM Dictated Date/Time: 05/20/2017 6:04 AM
[2017-05-20] MEDS ORDERED: MIDAZOLAM HCL 1 MG/ML 2ML VIAL ONE (07:22)
[2017-05-20] MEDS ORDERED: FENTANYL CITRATE INJ 50 MCG/1 ML 2 ML VIAL ONE ×2 (07:22→08:25)
[2017-05-20] MEDS: METOPROLOL TARTRATE 25 MG TAB PO SCH ×2 (07:26→21:00)
[2017-05-20] MEDS: CALCIUM CARBONATE 500 MG CHEWABLE PO SCH (07:30)
[2017-05-20] MEDS: LOSARTAN POTASSIUM 25 MG TAB PO SCH (07:30)
[2017-05-20] MEDS: PANTOprazole SOD 40 MG TAB PO SCH (07:30)
[2017-05-20] MEDS: CHOLECALCIFEROL 1000 INTER.UNIT TAB PO SCH (07:31)
--- NOTE | 2017-05-20 07:53 | History & Physical Bridge Note ---
H&P Re-Evaluation Bridge Note: I have examined the patient, reviewed the History & Physical and in the interval since the performance of the History & Physical I have noted the following changes of clinical significance: No changes noted
[2017-05-20] MEDS ORDERED: POVIDONE-IODINE OP SOLN 30 ML BTL ONE (07:58)
[2017-05-20] MEDS ORDERED: HYDROmorphone INJ 2 MG/ML SYR/VIAL IV PRN (08:00)
[2017-05-20] MEDS ORDERED: EpHEDrine SULFATE INJ 50 MG/ML AMP IV PRN (08:00)
[2017-05-20] MEDS ORDERED: ATROPINE SULFATE 0.1 MG/ML 5ML SYR IV PRN (08:00)
[2017-05-20] MEDS ORDERED: PHENYLEPHRINE 100MCG/ML 5ML SYR IV PRN (08:00)
[2017-05-20] MEDS ORDERED: ONDANSETRON INJ 2 MG/ML 2 ML VIAL IV PRN (08:00)
[2017-05-20] MEDS: DAPTOmycin IV 500 MG in SODIUM CHLORIDE 0.9% 50ML 50 ML IV SCH (08:15)
[2017-05-20 08:30] LABS: ESTIMATED AVERAGE GLUCOSE 275 mg/dl; HA1C FLAG Normal (Normal)
[2017-05-20] MEDS ORDERED: PHENYLEPHRINE 100MCG/ML 5ML SYR ONE (08:58)
[2017-05-20] MEDS ORDERED: LIDOCAINE HCL 2% 2 ML VIAL (20MG/ML) ONE (08:58)
[2017-05-20] MEDS ORDERED: ONDANSETRON INJ 2 MG/ML 2 ML VIAL ONE (08:58)
[2017-05-20] MEDS ORDERED: PROPOFOL IV EMULSION 10 MG/ML 20 ML VIAL IV ONE (08:58)
--- NOTE | 2017-05-20 09:34 | Anesthesiology Progress Note ---
Anesthesia Post Op Note Date & Time May 20, 2017 at 09:34 Vital Signs Pain Intensity: 0 Vital Signs Past 12 Hours Date Time Temp Pulse Resp B/P (MAP) Pulse Ox O2 Delivery O2 Flow Rate FiO2 05/20/17 09:25 72 16 123/73 100 Oxymask 8 05/20/17 09:18 36 70 16 123/67 100 Oxymask 8 05/20/17 07:08 36.7 79 17 158/81 (106) 97 Room Air 05/20/17 00:20 Room Air 05/19/17 23:30 37.1 88 20 103/58 (73) 98 Room Air 05/19/17 22:31 Room Air Notes Mental Status: alert / awake / arousable, participated in evaluation Pt Amnestic to Procedure: Yes Nausea / Vomiting: adequately controlled Pain: adequately controlled Airway Patency, RR, SpO2: stable & adequate BP & HR: stable & adequate Hydration State: stable & adequate Anesthetic Complications: no major complications apparent
--- NOTE | 2017-05-20 09:42 | [facility] Operative Report ---
Operative Report Operative Date May 20, 2017. Pre-Operative Diagnosis Diabetic ulceration of the left foot Post-Operative Diagnosis Diabetic ulceration of the left foot Procedure(s) Performed Left foot revision amputation and wound debridement Surgeon Dr. Xander Soto Multiple Coil Winder Surgeon(s) None Estimated Blood Loss 20ml Findings Plantar and lateral ulceration of the left foot down to the level of the fifth metatarsal Specimens Culture: Left foot swabbed for routine C&S, gram stain and anaerobic cultures collected at 0847. Permanent Specimen: A. Left foot bone and tissue Drains none Anesthesia laryngeal mask Complication(s) None Disposition Recovery Room / PACU Indications Patient is a 62-year-old male with diabetes and peripheral vascular disease who has developed a nonhealing ulceration on the lateral aspect of his left foot. He has an ankle deformity related to prior trauma which increases the pressure on the lateral foot. He is status post a partial fifth ray amputation approximately 1 year ago. He is done more recently until he developed a blister approximately 4-6 weeks ago. This is been refractory to treatments in the wound clinic. Description of Procedure Informed consent was obtained. The patient was identified as Ron Chowdhury. He was taken to the operating room positioned supine on the OR table. No tourniquet was utilized. A laryngeal mask anesthetic was administered. DVT prophylaxis will be done with early mobility. He was on preoperative antibiotics due to the infection. He did receive a dose of daptomycin preoperatively. Patient identified the operative site as the left foot fifth ray. I marked with my initials. A preoperative surgical timeout was performed he was positioned supine with a bump under his left side to tilt him approximately 30 to improve visualization of the lateral foot. He had limited mobility of his left hip as well as the left ankle. Bony prominences were inspected and padded. The leg was prescribed with Betadine and then prepped with Betadine paint and draped in the usual sterile fashion. There was a plantar and lateral ulceration about 3 cm in diameter. This was located over the base of the fifth metatarsal which was readily palpable within the base of the wound. There is no abscess or purulence. The wound had a foul odor and there was necrotic material within the wound base. There was a large superficial dry eschar 3 cm in diameter towards the plantar aspect of the foot. This more plantar ulcer was debrided and a partial-thickness type fashion down to a bleeding tissue which essentially encompassed down to the deep fat layer. Necrotic fat was debrided as encountered. The more lateral ulceration was debrided with a skin margin of several millimeters down to healthy tissue which went through the skin and subcutaneous tissues down to the level of the plantar musculature. I made a prior a longitudinal incision somewhat dorsal and lateral. This incision stopped short of the ulceration. A plantar incision would not be appropriate. A lateral incision would make a shift thin skin bridge and likely necrosis. I elected to continue the prior incision proximally and connected with the dorsal aspect of the ulceration. If I kept going more medial I would end up with a small skin bridge which would likely necrosis. The skin incision was made full-thickness connecting to the upper portion of the ulcer. I amputated a small apex of the wound margin. The fifth metatarsal was then dissected out in a subperiosteal fashion using the knife. It was released from the third metatarsal and cuboid bone. The resected bone was soft but not destroyed. Or eroded. The resected tissue was sent for specimen. A swab culture was taken of the deep wound. The remainder of the tissue remained healthy. This was a sharp excisional debridement using a scalpel full- thickness through the skin down into the cutaneous fat or deeper. The wound was then irrigated with Betadine lavage meticulous hemostasis was performed. The surgical incision which was about 5 cm in length was closed with 3-0 nylon sutures and the wound was packed and a tension-free fashion with 1 inch iodoform gauze. Fluffs were placed between the toes. 2 dried blood blisters at the tip of the second and third toe were removed and the nails of the second and third toe which had worn like projections were trimmed with a cutting [place] or. Also placed between the toes and then a well-padded lateral dressing was applied followed by cast padding and an James wrap. The patient was then awakened from anesthesia without difficulty and taken recovery in stable condition there were no complications. Specimens were as mentioned above. Counts were correct blood loss approximately 20 mL. There was good bleeding tissue throughout the wound. No abscess was encountered. At the conclusion operations both patient's family informed of my findings postoperative instructions were given. Plan will be for a wound VAC placement consultation with Dr. Eddy in the wound clinic and infectious diseases. He'll continue on intravenous antibiotics. There was not a significant amount of cellulitis present nor was there much swelling. He will be nonweightbearing. I attest to the content of the Intraoperative Record and any orders documented therein. Any exceptions are noted below.
[2017-05-20] MEDS ORDERED: NURSING VERBAL MED ORDER ONE (10:15)
[2017-05-20] MEDS: INSULIN ASPART 100 UNITS/ML 3 ML PEN SC SCH ×3 (13:26→21:00)
--- NOTE | 2017-05-20 13:44 | Medical Consult ---
Consultation Date of Consultation: May 20, 2017. Attending Physician: Xander Soto M.D. Reason for Consultation: Recurrent osteomyelitis, patient known to you History of Present Illness 62-year-old male well known to the Infectious Disease service with history of longstanding diabetes mellitus with peripheral neuropathy, has had previous partial amputation of left foot for osteomyelitis, and was doing well until recently when he developed recurrent foot ulceration of the lateral left foot. He was seen yesterday at the [facility] and was found to have evidence of worsening infection and was referred for admission. He has now undergone surgical debridement and partial resection of infected area. He has been started empirically on IV daptomycin. Cultures from the wound Care Center have grown a methicillin sensitive Staph aureus, operative cultures are pending. Patient denies any significant fever, chills, or other new systemic complaints. Past Medical/Surgical History Medical Problems: (1) Abdominal discomfort, epigastric Status: Acute (2) Abscess of great toe, right Status: Acute (3) Cellulitis of right foot Status: Acute (4) Fall Status: Acute (5) Hypoglycemia due to type 2 diabetes mellitus Status: Acute (6) Injury of right hip Status: Acute Medical Problems: (1) Aorto-iliac disease (2) Coronary artery disease (3) Diabetes (4) Diabetic foot infection (5) Diabetic foot ulcer associated with type 1 diabetes mellitus (6) Diabetic peripheral neuropathy associated with type 1 diabetes mellitus (7) DKA (diabetic ketoacidoses) (8) Foot deformity (9) Foot drop (10) Hyperglycemia due to type 1 diabetes mellitus (11) Loss of sensation (12) NSTEMI (non-ST elevated myocardial infarction) (13) Osteomyelitis of left foot (14) Peripheral vascular disease (15) Status post partial amputation of foot Family History Alzheimer's disease MOTHER Asthma Diabetes mellitus BROTHER SISTER GRANDMOTHER Aunt Maternal Aunt Esophageal cancer FATHER FH: kidney cancer Paternal Uncle Lung cancer Paternal Aunt Tobacco abuse Paternal Aunt Social History Smoking Status: Former Smoker (quit 12 years ago) Smokeless Tobacco Use: Yes (occasionally) Alcohol Use: socially (rarely) Drug Use: none Marital Status: Occupation Status: disabled Allergies Coded Allergies: No Known Allergies (Verified , 04/10/17) Current Inpatient Medications Current Inpatient Medications Medications (Trade) Dose Ordered Sig/Malu Route Start Time Stop Time Status Last Admin Dose Admin Acetaminophen (Tylenol Tab) 650 mg Q4H PRN PO 05/19/17 18:00 06/18/17 17:59 Magnesium Hydroxide (Milk Of Magnesia Susp) 30 ml Q6H PRN PO 05/19/17 18:00 06/18/17 17:59 Ondansetron HCl (Zofran Inj) 4 mg Q6H PRN IV 05/19/17 18:00 06/18/17 17:59 Glucose (Glucose 40% Gel) 15-30 GRAMS 15 GRAMS... UD PRN PO 05/19/17 18:00 06/18/17 17:59 Glucose (Glucose Chew Tab) 4-8 Tablets 4 Tabl... UD PRN PO 05/19/17 18:00 06/18/17 17:59 Dextrose (Dextrose 50% 50ML Syringe) 25-50ML OF 50% DW IV FOR... UD PRN IV 05/19/17 18:00 06/18/17 17:59 Glucagon (Glucagon Inj) 1 mg UD PRN SQ 05/19/17 18:00 06/18/17 17:59 Daptomycin 500 mg/ Sodium Chloride 60 ml @ 100 mls/hr DAILY IV 05/20/17 09:00 05/30/17 08:59 05/20/17 08:15 100 MLS/HR Atorvastatin Calcium (Lipitor Tab) 80 mg HS PO 05/19/17 21:00 06/18/17 20:59 05/19/17 21:56 80 MG Levothyroxine Sodium (Synthroid Tab) 175 mcg DAILYBB PO 05/20/17 06:00 06/19/17 05:59 05/20/17 05:33 175 MCG Losartan Potassium (coZAAR TAB) 25 mg DAILY PO 05/20/17 09:00 06/19/17 08:59 Metoprolol Tartrate (Lopressor Tab) 12.5 mg BID PO 05/19/17 21:00 06/18/17 20:59 05/20/17 07:26 12.5 MG Pantoprazole Sodium (Protonix Tab) 40 mg QAM PO 05/20/17 09:00 06/19/17 08:59 Calcium Carbonate (Tums Chew Tab) 500 mg DAILY PO 05/20/17 09:00 06/19/17 08:59 Cholecalciferol (Vitamin D Tab) 2,000 inter.unit QAM PO 05/20/17 09:00 06/19/17 08:59 Insulin Glargine (Lantus Solostar Pen) 17.5 units QPM SC 05/19/17 21:00 06/18/17 20:59 05/19/17 21:54 17.5 UNITS Oxycodone/ Acetaminophen (Percocet 5-325mg Tab) 1 tab Q4H PRN PO 05/19/17 22:00 06/02/17 21:59 Senna (Senokot Tab) 17.2 mg HS PO 05/20/17 21:00 06/19/17 20:59 Docusate Sodium (coLACE CAP) 100 mg BID PO 05/20/17 21:00 06/19/17 20:59 Insulin Aspart (novoLOG ASPART) SLIDING SCALE If C... ACHS SC 05/20/17 12:00 06/19/17 11:59 05/20/17 13:26 6 UNITS Review of Systems All systems were reviewed and are negative except as per HPI Physical Exam Date Time Temp Pulse Resp B/P (MAP) Pulse Ox O2 Delivery O2 Flow Rate FiO2 05/20/17 13:40 37.0 76 18 131/78 (95) 95 Room Air 05/20/17 12:30 36.7 72 18 136/76 (96) 96 Room Air 05/20/17 11:04 36.6 72 18 131/82 (98) 95 Room Air 05/20/17 10:40 36.5 72 18 138/80 (99) 95 Room Air 05/20/17 10:10 98 Room Air 05/20/17 10:10 Room Air 05/20/17 10:10 36.8 73 16 118/75 (89) 97 Room Air 05/20/17 09:50 70 14 122/60 99 Nasal Cannula 2 05/20/17 09:45 36.8 73 14 109/55 98 Nasal Cannula 2 05/20/17 09:35 73 16 102/53 98 Nasal Cannula 2 05/20/17 09:25 72 16 123/73 100 Oxymask 8 05/20/17 09:18 36 70 16 123/67 100 Oxymask 8 05/20/17 07:08 36.7 79 17 158/81 (106) 97 Room Air 05/20/17 00:20 Room Air 05/19/17 23:30 37.1 88 20 103/58 (73) 98 Room Air 05/19/17 22:31 Room Air 05/19/17 18:09 37.2 83 16 121/72 Room Air 05/19/17 17:07 37.2 83 16 121/72 (88) 97 Room Air General Appearance: WD/WN, no apparent distress Head: normocephalic, atraumatic Eyes: normal inspection, EOMI, sclerae normal ENT: normal ENT inspection, pharynx normal Neck: supple, no adenopathy, thyroid normal, trachea midline Respiratory/Chest: chest non-tender, lungs clear, normal breath sounds, no respiratory distress Cardiovascular: regular rate, rhythm, no gallop, no murmur Abdomen/GI: normal bowel sounds, non tender, soft, no organomegaly Back: normal inspection, no CVA tenderness Extremities/Musculoskelatal: no calf tenderness, non-tender Neurologic/Psych: alert, oriented x 3, + sensory deficit (Both feet) Skin: normal color, no rash, + pertinent finding (Surgical dressing intact left foot) Lymphatic: no adenopathy Laboratory Results Date/Time Source Procedure Growth Status 05/20/17 08:17 Abscess Foot Left Gram Stain Pending Received 05/20/17 08:17 Abscess Foot Left Bacterial Culture Pending Received Last 24 Hours Test 05/19/17 18:17 05/19/17 18:38 05/19/17 20:37 05/20/17 06:01 White Blood Count 8.73 K/uL Red Blood Count 4.10 M/uL Hemoglobin 12.3 g/dL Hematocrit 35.9 % Mean Corpuscular Volume 87.6 fL Mean Corpuscular Hemoglobin 30.0 pg Mean Corpuscular Hemoglobin Concent 34.3 g/dl RDW Standard Deviation 40.1 fL RDW Coefficient of Variation 12.6 % Platelet Count 296 K/uL Mean Platelet Volume 9.8 fL Sodium Level 136 mmol/L Potassium Level 4.1 mmol/L Chloride Level 99 mmol/L Carbon Dioxide Level 31 mmol/L Anion Gap 6.0 mmol/L Blood Urea Nitrogen 10 mg/dl Creatinine 1.00 mg/dl Est Creatinine Clear Calc Drug Dose 83.1 ml/min Estimated GFR () 94.4 Estimated GFR (Non- 81.4 BUN/Creatinine Ratio 10.0 Random Glucose 232 mg/dl Estimated Average Glucose 275 mg/dl Hemoglobin A1c 11.2 % Calcium Level 8.9 mg/dl Phosphorus Level 2.5 mg/dl Magnesium Level 1.7 mg/dl Hepatitis C Antibody Screen NEG Bedside Glucose 221 mg/dl 302 mg/dl 242 mg/dl Test 05/20/17 09:35 05/20/17 12:03 Bedside Glucose 269 mg/dl 265 mg/dl LEFT FOOT MIN 3 VIEWS ROUTINE CLINICAL HISTORY: diabetic foot ulcer infection COMPARISON: None. DISCUSSION: Severe degenerative change throughout the foot. Prior resection of the bulk of the fifth metatarsal and associated phalanges. No evidence for a true destructive process. Degenerative change of the intertarsal as well as tarsometatarsal joints. Moderate soft tissue edematous change in the region of the excised fifth metatarsal. Soft tissue ulceration near the base of the residual fifth metatarsal. There is no evidence for soft tissue swelling. IMPRESSION: Soft tissue edema. Prior operative change. Degenerative bony change. No evidence for osteomyelitis The above report was generated using voice recognition software. It may contain grammatical, syntax or spelling errors. Assessment & Plan 62-year-old diabetic male with peripheral neuropathy now with recurrent osteomyelitis of the left foot status post revision surgery with partial amputation, with operative cultures and Gram stain pending. Patient be continued on current broad-spectrum antibiotics pending final culture results. Will adjust once these are available. Will follow.
--- NOTE | 2017-05-20 13:49 | Progress Note ---
Subjective Date of Service: May 20, 2017. Subjective Pt evaluation today including: conversation w/ patient, physical exam, chart review, lab review, review of studies, review of inpatient medication list Resting comfortably in bed NPO for likely surgery Pain controlled Problem List Medical Problems: (1) Abdominal discomfort, epigastric Status: Acute (2) Abscess of great toe, right Status: Acute (3) Cellulitis of right foot Status: Acute (4) Fall Status: Acute (5) Hypoglycemia due to type 2 diabetes mellitus Status: Acute (6) Injury of right hip Status: Acute Review of Systems Constitutional: No fever, No chills, No sweats, No weight loss, No weakness ENT: No hearing loss, No unusual epistaxis, No nasal symptoms, No sore throat Respiratory: No cough, No sputum, No wheezing, No shortness of breath, No dyspnea on exertion Cardiac: No chest pain, No orthopnea, No PND, No edema Abdomen: No pain, No nausea, No vomiting, No diarrhea, No constipation Musculoskeletal: + joint pain, No muscle pain, No swelling, No calf pain Male : No dysuria, No urinary frequency, No incontinence, No slowing stream Neurologic: No memory loss, No paralysis, No weakness, No numbness/tingling Psychiatric: No depression symptoms, No anhedonism, No anxiety, No insomnia Endo: No fatigue, No excessive thirst Skin: No rash, No itch Objective Vital Signs Date Time Temp Pulse Resp B/P (MAP) Pulse Ox O2 Delivery O2 Flow Rate FiO2 05/20/17 13:40 37.0 76 18 131/78 (95) 95 Room Air 05/20/17 12:30 36.7 72 18 136/76 (96) 96 Room Air 05/20/17 11:04 36.6 72 18 131/82 (98) 95 Room Air 05/20/17 10:40 36.5 72 18 138/80 (99) 95 Room Air 05/20/17 10:10 98 Room Air 05/20/17 10:10 Room Air 05/20/17 10:10 36.8 73 16 118/75 (89) 97 Room Air 05/20/17 09:50 70 14 122/60 99 Nasal Cannula 2 05/20/17 09:45 36.8 73 14 109/55 98 Nasal Cannula 2 05/20/17 09:35 73 16 102/53 98 Nasal Cannula 2 05/20/17 09:25 72 16 123/73 100 Oxymask 8 05/20/17 09:18 36 70 16 123/67 100 Oxymask 8 05/20/17 07:08 36.7 79 17 158/81 (106) 97 Room Air 05/20/17 00:20 Room Air 05/19/17 23:30 37.1 88 20 103/58 (73) 98 Room Air 05/19/17 22:31 Room Air 05/19/17 18:09 37.2 83 16 121/72 Room Air 05/19/17 17:07 37.2 83 16 121/72 (88) 97 Room Air Physical Exam General Appearance: WD/WN, no apparent distress Eyes: normal inspection, PERRL, EOMI, sclerae normal Neck: supple, no adenopathy, thyroid normal, no JVD Respiratory/Chest: chest non-tender, lungs clear, normal breath sounds, no respiratory distress Cardiovascular: regular rate, rhythm, no edema, no gallop, no JVD Abdomen: normal bowel sounds, non tender, soft, no organomegaly Neurologic/Psychiatric: no motor/sensory deficits, alert, normal mood/affect, oriented x 3 Laboratory Results Last 24 Hours Test 05/19/17 18:17 05/19/17 18:38 05/19/17 20:37 05/20/17 06:01 White Blood Count 8.73 K/uL Red Blood Count 4.10 M/uL Hemoglobin 12.3 g/dL Hematocrit 35.9 % Mean Corpuscular Volume 87.6 fL Mean Corpuscular Hemoglobin 30.0 pg Mean Corpuscular Hemoglobin Concent 34.3 g/dl RDW Standard Deviation 40.1 fL RDW Coefficient of Variation 12.6 % Platelet Count 296 K/uL Mean Platelet Volume 9.8 fL Sodium Level 136 mmol/L Potassium Level 4.1 mmol/L Chloride Level 99 mmol/L Carbon Dioxide Level 31 mmol/L Anion Gap 6.0 mmol/L Blood Urea Nitrogen 10 mg/dl Creatinine 1.00 mg/dl Est Creatinine Clear Calc Drug Dose 83.1 ml/min Estimated GFR () 94.4 Estimated GFR (Non- 81.4 BUN/Creatinine Ratio 10.0 Random Glucose 232 mg/dl Estimated Average Glucose 275 mg/dl Hemoglobin A1c 11.2 % Calcium Level 8.9 mg/dl Phosphorus Level 2.5 mg/dl Magnesium Level 1.7 mg/dl Hepatitis C Antibody Screen NEG Bedside Glucose 221 mg/dl 302 mg/dl 242 mg/dl Test 05/20/17 09:35 05/20/17 12:03 Bedside Glucose 269 mg/dl 265 mg/dl Assessment and Plan 62 y/o M who was a direct admit from Dr. Eddy for recurrent osteomyelitis that has failed outpt management Recurrent osteo: L 5th metatarsal Cx + for MRSA MRI as noted Dapto started Pt was active with Dr. Soto, Dr. Ennis, Dr. Eddy--all have been consulted No leukocytosis or fevers Likely to OR Will likely need ID consultation DM: A1c 11.2 Manages at home with SSI and lantus 35units HS Cont full lantus postop CAD, PAD with iliac stents: aspirin/plavix Last dose was 05/19 Continue other home meds Hypothyroid: continue home meds Other: Full code, although does state that he would not want a feeding tube or prolonged mechanical life support. "That isn't real living". SCDs for DVT proph given possible OR
--- NOTE | 2017-05-20 14:45 | DIAGNOSTIC IMAGING REPORT ---
LEFT FOOT 2 VIEWS CLINICAL HISTORY: amputation COMPARISON: Same date DISCUSSION: Evidence for interval amputation of the residual base of the fifth metatarsal. All remaining components of the study are unremarkable. Deformity of the distal tibia and fibula as well as an additional degenerative change throughout is unchanged from the prior exam. There is no evidence for soft tissue swelling. IMPRESSION: Evidence for interval resection surgically of the residual base fifth metatarsal. The above report was generated using voice recognition software. It may contain grammatical, syntax or spelling errors. Electronically signed by: Tyree Jasmine M.D. 05/20/2017 2:43 PM Dictated Date/Time: 05/20/2017 2:42 PM
[2017-05-20] MEDS: DOCUSATE SODIUM 100 MG CAP PO SCH (21:00)
[2017-05-20] MEDS: INSULIN GLARGINE SOLOSTAR 100 UNITS/ML 3 ML PEN SC SCH (21:00)
[2017-05-20] MEDS: ATORVASTATIN 40 MG TAB PO SCH (21:00)
[2017-05-20] MEDS: SENNA 8.6 MG TAB PO SCH (21:00)
[2017-05-21 03:39] VITALS: BP 148/79; PULSE 81; TEMP 37.1; O2SAT 96
[2017-05-21] MEDS: LEVOTHYROXINE 175 MCG TAB PO SCH (05:47)
[2017-05-21 07:09] LABS: HEMATOCRIT 38.2 % (42-52); MEAN PLATELET VOLUME 9.9 fL (7.4-10.4); PLATELET COUNT 306 K/uL (130-400); RED BLOOD COUNT 4.34 M/uL (4.7-6.1); WHITE BLOOD COUNT 9.26 K/uL (4.8-10.8)
[2017-05-21 07:16] VITALS: BP 144/79; PULSE 79; TEMP 37.2; O2SAT 97
[2017-05-21 07:39] LABS: CALCIUM 8.7 mg/dl (8.5-10.1); CREATININE 0.98 mg/dl (0.60-1.40); POTASSIUM 3.7 mmol/L (3.5-5.1)
--- NOTE | 2017-05-21 08:17 | Progress Note ---
Progress Note Date of Service May 21, 2017. Progress Note No problems reported. He is afebrile. White blood cell count normal. The dressing is changed and the wound is repacked. Skin margins are all viable with good healthy bleeding tissue. One-inch iodoform packing to the wound. A bulky soft sterile dressing is then applied. Cultures arts are pending. Prior cultures are growing Corynebacterium species lactobacillus and methicillin sensitive staph in the past several days. I spoke with Dr. Eddy and he or his staff will violate for a wound VAC placement tomorrow. Continue antibiotics elevation and offloading nonweightbearing. May need a knee scooter wheelchair etc.
[2017-05-21] MEDS ORDERED: INSULIN GLARGINE SOLOSTAR 100 UNITS/ML 3 ML PEN SC ONE (08:45)
[2017-05-21] MEDS: DOCUSATE SODIUM 100 MG CAP PO SCH ×2 (09:00→21:00)
[2017-05-21 09:15] VITALS: BP 119/72; PULSE 78
[2017-05-21] MEDS: CHOLECALCIFEROL 1000 INTER.UNIT TAB PO SCH (09:18)
[2017-05-21] MEDS: LOSARTAN POTASSIUM 25 MG TAB PO SCH (09:19)
[2017-05-21] MEDS: METOPROLOL TARTRATE 25 MG TAB PO SCH ×2 (09:19→22:06)
[2017-05-21] MEDS: CALCIUM CARBONATE 500 MG CHEWABLE PO SCH (09:20)
[2017-05-21] MEDS: PANTOprazole SOD 40 MG TAB PO SCH (09:20)
[2017-05-21] MEDS: INSULIN ASPART 100 UNITS/ML 3 ML PEN SC SCH ×5 (09:30→23:50)
[2017-05-21] MEDS: DAPTOmycin IV 500 MG in SODIUM CHLORIDE 0.9% 50ML 50 ML IV SCH (09:55)
[2017-05-21 15:07] VITALS: BP 115/64; PULSE 78; TEMP 37; O2SAT 97
[2017-05-21] MEDS ORDERED: PHARMACY GLYCEMIC MGMT CONSULT PRN (17:51)
[2017-05-21] MEDS: SENNA 8.6 MG TAB PO SCH (21:00)
[2017-05-21] MEDS ORDERED: INSULIN GLARGINE SOLOSTAR 100 UNITS/ML 3 ML PEN SC SCH (21:00)
[2017-05-21] MEDS: ATORVASTATIN 40 MG TAB PO SCH (22:04)
[2017-05-21 23:05] VITALS: BP 117/77; PULSE 81; TEMP 37.2; O2SAT 99
[2017-05-22] MEDS: INSULIN ASPART 100 UNITS/ML 3 ML PEN SC SCH ×5 (04:00→22:00)
[2017-05-22] MEDS: LEVOTHYROXINE 175 MCG TAB PO SCH (05:37)
[2017-05-22 07:01] VITALS: BP 152/83; PULSE 82; TEMP 36.8; O2SAT 96
[2017-05-22 07:08] LABS: MEAN CELL VOLUME 87.3 fL (80-100); MEAN CORPUSCULAR HEMOGLOBIN 29.4 pg (25-34); MEAN CORPUSCULAR HGB CONC 33.7 g/dl (32-36); MEAN PLATELET VOLUME 10.2 fL (7.4-10.4); PLATELET COUNT 351 K/uL (130-400); RED BLOOD COUNT 4.01 M/uL (4.7-6.1); WHITE BLOOD COUNT 9.48 K/uL (4.8-10.8)
[2017-05-22 07:33] LABS: CALCIUM 9.1 mg/dl (8.5-10.1); CREATININE 0.88 mg/dl (0.60-1.40); POTASSIUM 3.6 mmol/L (3.5-5.1)
[2017-05-22] MEDS: DOCUSATE SODIUM 100 MG CAP PO SCH ×2 (09:00→21:53)
--- NOTE | 2017-05-22 09:00 | Orthopedic Progress Note ---
Orthopedic Progress Note Date of Service May 22, 2017. Subjective Post OP Day: 2 Reports: feeling well, pain controlled w PO medications, Denies: complaints, chest pain, SOB, nausea / vomiting, light headedness, calf pain, using QUALITY ASSURANCE MONITOR FINAL Objective calves soft nontender, capillary refill less than 2 sec., dressing C/D/I, A&O x3 , toes mobile, CMS intact Pt has difficulty depicting light sensation to touch over distal pads of remaining digits in Left foot. Able to easily perform straight leg raise test. No drainage from dressing. Dressing not removed/changed. Unable to palpate periph pulses or examine wound due to dressing placement. Date Time Temp Pulse Resp B/P (MAP) Pulse Ox O2 Delivery O2 Flow Rate FiO2 05/22/17 07:10 Room Air 05/22/17 07:01 36.8 82 18 152/83 (106) 96 Room Air 05/21/17 23:50 Room Air 05/21/17 23:05 37.2 81 18 117/77 (90) 99 Room Air 05/21/17 16:00 Room Air 05/21/17 15:07 37.0 78 18 115/64 (81) 97 Room Air 05/21/17 09:15 78 16 119/72 (88) Laboratory Results 24 Hours: Test 05/22/17 06:13 Hematocrit 35.0 % Hemoglobin 11.8 g/dL Assessment & Plan Assessment: Day 2 s/p Left fifth metatarsal amputation Plan: Dressing left in place. Wound vac placement later today by Wound Care Physician. Cultures pending for ABX sensitivity Will need further IV ABX. NWB on Left LE May transport with wheelchair or knee scooter. Will discuss findings with Dr. Soto.
[2017-05-22] MEDS ORDERED: CIPR1TAB11 PO (09:07)
[2017-05-22] MEDS: LOSARTAN POTASSIUM 25 MG TAB PO SCH (09:23)
[2017-05-22] MEDS: PANTOprazole SOD 40 MG TAB PO SCH (09:24)
[2017-05-22] MEDS: METOPROLOL TARTRATE 25 MG TAB PO SCH ×2 (09:24→21:52)
[2017-05-22] MEDS: CHOLECALCIFEROL 1000 INTER.UNIT TAB PO SCH (09:25)
[2017-05-22] MEDS: CALCIUM CARBONATE 500 MG CHEWABLE PO SCH (09:26)
[2017-05-22] MEDS: DAPTOmycin IV 500 MG in SODIUM CHLORIDE 0.9% 50ML 50 ML IV SCH (09:49)
[2017-05-22] MEDS ORDERED: INSULIN HUMAN REGULAR IV BOLUS 5 UNIT in SYRINGE 0 ML IV SCH (12:30)
[2017-05-22 13:43] VITALS: BMI 28.3
--- NOTE | 2017-05-22 13:51 | Pharmacy Progress Note ---
Glycemic Control Intl Consult Date of Service May 22, 2017. Scope Glycemic Pharmacist consulted by Dr Henley on 05/21/17 for glycemic control and to write orders per [facility] inpatient glycemic control protocol Objective Weight (Kilograms): 84.500 Accuchecks BSG (last 24hrs): Test 05/21/17 12:02 05/21/17 17:24 05/21/17 20:57 05/21/17 23:47 Bedside Glucose 300 mg/dl (70-99) 353 mg/dl (70-99) 290 mg/dl (70-99) 95 mg/dl (70-99) Test 05/22/17 01:05 05/22/17 04:03 05/22/17 06:13 05/22/17 08:03 Bedside Glucose 80 mg/dl (70-99) 113 mg/dl (70-99) 176 mg/dl (70-99) Random Glucose 159 mg/dl (70-99) Laboratory Data (last 24hrs) Test 05/22/17 06:13 Anion Gap 6.0 mmol/L BUN/Creatinine Ratio 10.0 Blood Urea Nitrogen 9 mg/dl Creatinine 0.88 mg/dl Potassium Level 3.6 mmol/L Sodium Level 138 mmol/L White Blood Count 9.48 K/uL HbA1c Test 05/19/17 18:17 Hemoglobin A1c 11.2 % (4.5-5.6) H Recent Pertinent Medications Outpatient Anti-diabetic Regimen: * Lantus 35 units qPM + Novolog 5-10 units ACHS The patient is currently receiving: * Basal insulin: Lantus 35 units every 24 hours in the evening ( started 05/21/17) * Correctional Insulin: Novolog Correction per scale ACHS Goal Range: Low 100 mg/dL - High 140 mg/dL Correction Factor: 20 mg/dL/unit * Prandial insulin: Per carb ratio of 1 unit per 9 grams CHO consumed Risk Factors for Insulin Resistance: * Infection: osteomyelitis of 5th metatarsal on daptomycin * Recent Surgery: POD 3 for revision of amputation of L foot * Diet: type 2 diabetic diet Assessment & Plan ASSESSMENT: * ADA & AACE recommend a goal blood sugar range 140-180 mg/dl for the majority of critically ill & non-critically ill patients. However, more stringent targets may be selected in individual cases. Will utilize more stringent goal of 100-140mg/dl based on patient age & comorbidities. Additionally, tighter glycemic control is warranted to facilitate wound/infection healing. * Mr Chowdhury is a 62 y/o M with a PMH of type 1 diabetes with peripheral neuropathy admitted with left foot osteomyelitis. He underwent a revision of an amputation on 05/20/17. He is currently on daptomycin. Mr Chowdhury is relatively well known to the glycemic service. While here, he typically requires around 70 units /day. * On 05/20/17, Mr Chowdhury received 17.5 units of Lantus and then last night 35 units of Lantus. His fasting today was 176 mg/dL. Yesterday, blood sugars ranged from 95-353 mg/dL. Per previous admissions, the patient's blood sugars typically run higher. Lantus will be continued and may be increased over home dose if blood sugar remains elevated. * Mr Chowdhury's blood sugars throughout the day tend to rise indicating CF/CR require tightening. Last night, the patient's was tightened for evening blood sugars. Parameters were tightened even further this morning to reflect previous admissions. At lunch, the patient's blood sugar increased over 200 mg/dL - a 5 unit IV bolus was given (less aggressive than typical dose as patient is a type 1 diabetic) and carbohydrate ratio tightened to 6. PLAN FOR INPATIENT GLYCEMIC CONTROL: * Continuing Lantus 35 units SQ HS * Continuing correction factor of 20 mg/dl/unit * TIGHTENING carb ratio to 1 unit per 6 grams CHO consumed * Continuing goal range of Low 100 mg/dL - High 140 mg/dL * Please note that the plan above was derived based on current level of insulin resistance and hospital stress. These recommendations are appropriate for inpatient admission only. Plan of care upon discharge will need to be reassessed to avoid potential outpatient hypo/hyperglycemia. Thank you.
--- NOTE | 2017-05-22 15:09 | Progress Note ---
Subjective Date of Service: May 22, 2017. Subjective Pt evaluation today including: conversation w/ patient, physical exam, chart review, lab review, review of studies Patient is a diabetic with osteomyelitis in his left foot, being seen by Ortho; consulted by ID and Medicine. Patient reports feeling well, howveer, he is concerned with his blood sugars as they have been varying and going up to the 400s. Problem List Medical Problems: (1) Abdominal discomfort, epigastric Status: Acute (2) Abscess of great toe, right Status: Acute (3) Cellulitis of right foot Status: Acute (4) Fall Status: Acute (5) Hypoglycemia due to type 2 diabetes mellitus Status: Acute (6) Injury of right hip Status: Acute Review of Systems Constitutional: + fever, + chills, + weight loss Eyes: + worsening of vision, + eye pain, + redness, + discharge ENT: + hearing loss, + unusual epistaxis Respiratory: + cough, + sputum Cardiac: + chest pain, + orthopnea, + PND Abdomen: + pain, + nausea, + diarrhea Musculoskeletal: + joint pain, + problem reported (left foot osteo) Male : + dysuria, + urinary frequency Neurologic: + memory loss, + paralysis Psychiatric: + depression symptoms, + anhedonism Heme: + abnormal bleeding/bruising Endo: + fatigue All Other Systems: Reviewed and Negative Medications Current Inpatient Medications Medications (Trade) Dose Ordered Sig/Malu Route Start Time Stop Time Status Last Admin Dose Admin Acetaminophen (Tylenol Tab) 650 mg Q4H PRN PO 05/19/17 18:00 06/18/17 17:59 Magnesium Hydroxide (Milk Of Magnesia Susp) 30 ml Q6H PRN PO 05/19/17 18:00 06/18/17 17:59 Ondansetron HCl (Zofran Inj) 4 mg Q6H PRN IV 05/19/17 18:00 06/18/17 17:59 Glucose (Glucose 40% Gel) 15-30 GRAMS 15 GRAMS... UD PRN PO 05/19/17 18:00 06/18/17 17:59 Glucose (Glucose Chew Tab) 4-8 Tablets 4 Tabl... UD PRN PO 05/19/17 18:00 06/18/17 17:59 Dextrose (Dextrose 50% 50ML Syringe) 25-50ML OF 50% DW IV FOR... UD PRN IV 05/19/17 18:00 06/18/17 17:59 Glucagon (Glucagon Inj) 1 mg UD PRN SQ 05/19/17 18:00 06/18/17 17:59 Atorvastatin Calcium (Lipitor Tab) 80 mg HS PO 05/19/17 21:00 06/18/17 20:59 05/21/17 22:04 80 MG Levothyroxine Sodium (Synthroid Tab) 175 mcg DAILYBB PO 05/20/17 06:00 06/19/17 05:59 05/22/17 05:37 175 MCG Losartan Potassium (coZAAR TAB) 25 mg DAILY PO 05/20/17 09:00 06/19/17 08:59 05/22/17 09:23 25 MG Metoprolol Tartrate (Lopressor Tab) 12.5 mg BID PO 05/19/17 21:00 06/18/17 20:59 05/22/17 09:24 12.5 MG Pantoprazole Sodium (Protonix Tab) 40 mg QAM PO 05/20/17 09:00 06/19/17 08:59 05/22/17 09:24 40 MG Calcium Carbonate (Tums Chew Tab) 500 mg DAILY PO 05/20/17 09:00 06/19/17 08:59 05/22/17 09:26 500 MG Cholecalciferol (Vitamin D Tab) 2,000 inter.unit QAM PO 05/20/17 09:00 06/19/17 08:59 05/22/17 09:25 2,000 INTER.UNIT Oxycodone/ Acetaminophen (Percocet 5-325mg Tab) 1 tab Q4H PRN PO 05/19/17 22:00 06/02/17 21:59 Senna (Senokot Tab) 17.2 mg HS PO 05/20/17 21:00 06/19/17 20:59 05/20/17 21:00 17.2 MG Docusate Sodium (coLACE CAP) 100 mg BID PO 05/20/17 21:00 06/19/17 20:59 05/20/17 21:00 100 MG Insulin Aspart (novoLOG ASPART) SLIDING SCALE If C... ACHS SC 05/20/17 12:00 06/19/17 11:59 05/22/17 12:41 26 UNITS Miscellaneous Information (Consult Glycemic Management Pharmacy) 1 ea UD PRN N/A 05/21/17 17:51 06/20/17 17:50 Insulin Glargine (Lantus Solostar Pen) 35 units QPM SC 05/22/17 21:00 06/21/17 20:59 Insulin Aspart (novoLOG ASPART) SLIDING SCALE If C... TODAY@0200 SC 05/23/17 02:00 05/23/17 02:01 Ceftriaxone Sodium 2000 mg/ Dextrose 70 ml @ 100 mls/hr Q24H IV 05/22/17 14:30 07/03/17 14:29 UNV Objective Vital Signs Date Time Temp Pulse Resp B/P (MAP) Pulse Ox O2 Delivery O2 Flow Rate FiO2 05/22/17 07:10 Room Air 05/22/17 07:01 36.8 82 18 152/83 (106) 96 Room Air 05/21/17 23:50 Room Air 05/21/17 23:05 37.2 81 18 117/77 (90) 99 Room Air 05/21/17 16:00 Room Air 05/21/17 15:07 37.0 78 18 115/64 (81) 97 Room Air Physical Exam General Appearance: WD/WN, no apparent distress Eyes: normal inspection, PERRL, EOMI Neck: supple, no adenopathy, thyroid normal Respiratory/Chest: chest non-tender, lungs clear, normal breath sounds, no respiratory distress, no accessory muscle use Cardiovascular: regular rate, rhythm, no edema, no JVD, + systolic murmur Abdomen: normal bowel sounds, non tender, soft, no organomegaly Extremities: normal range of motion ( left foot is dressed and wrapped) Neurologic/Psychiatric: alert, normal mood/affect Lymphatic: no adenopathy Laboratory Results Last 24 Hours Test 05/21/17 17:06 05/21/17 17:24 05/21/17 20:57 05/21/17 23:47 Bedside Glucose 353 mg/dl 353 mg/dl 290 mg/dl 95 mg/dl Test 05/22/17 01:05 05/22/17 04:03 05/22/17 06:13 05/22/17 08:03 Bedside Glucose 80 mg/dl 113 mg/dl 176 mg/dl White Blood Count 9.48 K/uL Red Blood Count 4.01 M/uL Hemoglobin 11.8 g/dL Hematocrit 35.0 % Mean Corpuscular Volume 87.3 fL Mean Corpuscular Hemoglobin 29.4 pg Mean Corpuscular Hemoglobin Concent 33.7 g/dl RDW Standard Deviation 40.5 fL RDW Coefficient of Variation 12.6 % Platelet Count 351 K/uL Mean Platelet Volume 10.2 fL Sodium Level 138 mmol/L Potassium Level 3.6 mmol/L Chloride Level 102 mmol/L Carbon Dioxide Level 30 mmol/L Anion Gap 6.0 mmol/L Blood Urea Nitrogen 9 mg/dl Creatinine 0.88 mg/dl Est Creatinine Clear Calc Drug Dose 94.5 ml/min Estimated GFR () 108.2 Estimated GFR (Non- 93.4 BUN/Creatinine Ratio 10.0 Random Glucose 159 mg/dl Calcium Level 9.1 mg/dl Test 05/22/17 12:00 Bedside Glucose 474 mg/dl Assessment and Plan 62 y/o M who was a direct admit from Dr. Eddy for recurrent osteomyelitis that has failed outpt management Recurrent osteo: L 5th metatarsal Cx + awating final results: preliminary shows MSSA MRI as noted Dapto started initally but switched to ceftriaxone today. (day 3 of antibiotic) Pt was active with Dr. Soto, Dr. Ennis, Dr. Eddy--all have been consulted No leukocytosis or fevers Patient had left foot revision and wound debridement ID is on board. DM: A1c 11.2 Manages at home with SSI and lantus 35units HS Cont full lantus postop. consult glycemic control and diabetes education as hba1c was 11. CAD, PAD with iliac stents: Patient had CABG x1 to RCA and Aortic bioprosthetic valve 10/29/2015 at [place]. aspirin/plavix Last dose was 05/19 will restart today ASA and plavix. Continue other home meds Hypothyroid: continue home meds DVT proph: Heprain sub 5,000 q12h cont. SCDs Other: Full code, although does state that he would not want a feeding tube or prolonged mechanical life support. "That isn't real living". Continued [facility] stay due to: multiple IV medications needed, other ( Uncontrolled Blood sugars, with osteo and recent amputation requiring IV antibiotics.) Discharge planning: home
[2017-05-22 15:24] VITALS: BP 152/78; PULSE 81; TEMP 37.2; O2SAT 98
[2017-05-22] MEDS ORDERED: HEPARIN SOD 5000 UNIT/0.5 ML CARP SQ ONE (15:32)
[2017-05-22] MEDS: CEFTRIAXONE SOD INJ 2,000 MG in DEXTROSE 5% 50ML 50 ML IV SCH (16:35)
[2017-05-22 16:40] LABS: PROTHROMBIN TIME (PATIENT) 10.7 SECONDS (9.0-12.0)
[2017-05-22] MEDS ORDERED: INSULIN HUMAN REGULAR IV BOLUS 5 UNIT in SYRINGE 0 ML IV ONE (18:00)
[2017-05-22] MEDS: SENNA 8.6 MG TAB PO SCH (21:00)
[2017-05-22] MEDS ORDERED: INSULIN GLARGINE SOLOSTAR 100 UNITS/ML 3 ML PEN SC SCH ×2 (21:00)
--- NOTE | 2017-05-22 21:37 | Infectious Disease Progress Nt ---
Progress Note Date of Service May 22, 2017. Subjective Pt evaluation today including: conversation w/ patient, physical exam, chart review, lab review, review of studies, conversation w/ [employer] ebs consultant, review of inpatient medication list Patient offers no new complaints today. Remains afebrile. Pain controlled. Cultures growing methicillin sensitive Staph aureus. All Other Systems: Reviewed and Negative Medications Current Inpatient Medications Medications (Trade) Dose Ordered Sig/Malu Route Start Time Stop Time Status Last Admin Dose Admin Acetaminophen (Tylenol Tab) 650 mg Q4H PRN PO 05/19/17 18:00 06/18/17 17:59 Magnesium Hydroxide (Milk Of Magnesia Susp) 30 ml Q6H PRN PO 05/19/17 18:00 06/18/17 17:59 Ondansetron HCl (Zofran Inj) 4 mg Q6H PRN IV 05/19/17 18:00 06/18/17 17:59 Glucose (Glucose 40% Gel) 15-30 GRAMS 15 GRAMS... UD PRN PO 05/19/17 18:00 06/18/17 17:59 Glucose (Glucose Chew Tab) 4-8 Tablets 4 Tabl... UD PRN PO 05/19/17 18:00 06/18/17 17:59 Dextrose (Dextrose 50% 50ML Syringe) 25-50ML OF 50% DW IV FOR... UD PRN IV 05/19/17 18:00 06/18/17 17:59 Glucagon (Glucagon Inj) 1 mg UD PRN SQ 05/19/17 18:00 06/18/17 17:59 Atorvastatin Calcium (Lipitor Tab) 80 mg HS PO 05/19/17 21:00 06/18/17 20:59 05/21/17 22:04 80 MG Levothyroxine Sodium (Synthroid Tab) 175 mcg DAILYBB PO 05/20/17 06:00 06/19/17 05:59 05/22/17 05:37 175 MCG Losartan Potassium (coZAAR TAB) 25 mg DAILY PO 05/20/17 09:00 06/19/17 08:59 05/22/17 09:23 25 MG Metoprolol Tartrate (Lopressor Tab) 12.5 mg BID PO 05/19/17 21:00 06/18/17 20:59 05/22/17 09:24 12.5 MG Pantoprazole Sodium (Protonix Tab) 40 mg QAM PO 05/20/17 09:00 06/19/17 08:59 05/22/17 09:24 40 MG Calcium Carbonate (Tums Chew Tab) 500 mg DAILY PO 05/20/17 09:00 06/19/17 08:59 05/22/17 09:26 500 MG Cholecalciferol (Vitamin D Tab) 2,000 inter.unit QAM PO 05/20/17 09:00 06/19/17 08:59 05/22/17 09:25 2,000 INTER.UNIT Oxycodone/ Acetaminophen (Percocet 5-325mg Tab) 1 tab Q4H PRN PO 05/19/17 22:00 06/02/17 21:59 Senna (Senokot Tab) 17.2 mg HS PO 05/20/17 21:00 06/19/17 20:59 05/20/17 21:00 17.2 MG Docusate Sodium (coLACE CAP) 100 mg BID PO 05/20/17 21:00 06/19/17 20:59 05/20/17 21:00 100 MG Insulin Aspart (novoLOG ASPART) SLIDING SCALE If C... ACHS SC 05/20/17 12:00 06/19/17 11:59 05/22/17 18:19 27 UNITS Miscellaneous Information (Consult Glycemic Management Pharmacy) 1 ea UD PRN N/A 05/21/17 17:51 06/20/17 17:50 Insulin Aspart (novoLOG ASPART) SLIDING SCALE If C... TODAY@0200 UT 05/23/17 02:00 05/23/17 02:01 Ceftriaxone Sodium 2000 mg/ Dextrose 70 ml @ 100 mls/hr Q24H IV 05/22/17 16:00 07/03/17 15:59 05/22/17 16:35 100 MLS/HR Heparin Sodium (Porcine) (Heparin Sq 5000 Unit/0.5ml) 5,000 unit Q12 SQ 05/23/17 09:00 06/22/17 08:59 Clopidogrel Bisulfate (plAVix TAB) 75 mg QAM PO 05/23/17 08:00 06/22/17 07:59 Aspirin (Ecotrin Tab) 81 mg QAM PO 05/23/17 09:00 06/22/17 08:59 Insulin Glargine (Lantus Solostar Pen) 38 units QPM SC 05/22/17 21:00 06/21/17 20:59 Objective Vital Signs Date Time Temp Pulse Resp B/P (MAP) Pulse Ox O2 Delivery O2 Flow Rate FiO2 05/22/17 16:10 Room Air 05/22/17 15:24 37.2 81 18 152/78 (102) 98 Room Air 05/22/17 07:10 Room Air 05/22/17 07:01 36.8 82 18 152/83 (106) 96 Room Air 05/21/17 23:50 Room Air 05/21/17 23:05 37.2 81 18 117/77 (90) 99 Room Air Physical Exam General Appearance: WD/WN, no apparent distress Eyes: normal inspection, EOMI, sclerae normal ENT: normal ENT inspection, pharynx normal Neck: supple, no adenopathy, trachea midline Respiratory/Chest: chest non-tender, lungs clear, normal breath sounds, no respiratory distress Cardiovascular: regular rate, rhythm, no gallop, no murmur Abdomen: normal bowel sounds, non tender, soft, no organomegaly Extremities: non-tender, no calf tenderness Neurologic/Psychiatric: alert, oriented x 3 Skin: normal color, no rash, + pertinent finding ( Surgical dressing intact) Lymphatic: no adenopathy Laboratory Results RUN DATE: 05/22/17 [facility] LAB PAGE 1 RUN TIME: 1146 Specimen Inquiry PATIENT: BRANDON MOE Satnam [facility] #: [id number] LOC: MELCH[facility] Rosas # : [id number] AGE/SX: 62/M ROOM: [facility] REG : 05/19/[address]: Xander Soto M.D. : 1955 BED: 2 DIS : STATUS: ADM IN TLOC: SPEC #: [id number] BENJA: 05/20/17 STATUS: RES REQ #: [id number] RECD: 05/20/[address]: Ashia Corado DO SOURCE: ABSCESS ENTR: 05/20/[address]: Jennifer. Raymon, D.OAiden SPDESC: FOOT LEFT Enio Richards M.D. Shaw, Mark R., DO Sherbondy, Paul S., M.D. ORDERED: AER/JACKI CULTSMR Procedure Result Verified Site GRAM STAIN Final 05/21/17-8259 RESULT RARE GRAM POSITIVE COCCI RARE GRAM POSITIVE BACILLI FEW WBCs SEEN RARE EPITHELIAL CELLS OR AER/JCAKI CULT Preliminary 05/22/17-1147 Organism 1 STAPHYLOCOCCUS AUREUS QUANITY FEW SENS SENSITIVITY TO FOLLOW +MIXWOUND PLUS LOW COUNTS OF PROBABLE SKIN YESSENIA 1. STAPHYLOCOCCUS AUREUS Target Route Dose RX AB Cost M.I.C. IQ ------ ----- ------ -- ------ -------- - ------ TRIMET/SULFA S <=0.5/ 9.5 * OXACILLIN S <=0.25 VANCOMYCIN S 2 ERYTHROMYCIN S <=0.5 TETRACYCLINE S <=4 CLINDAMYCIN S <=0.5 DAPTOMYCIN S 1 S = SENSITIVE I = INTERMEDIATE R = RESISTANT Last 24 Hours Test 05/21/17 23:47 05/22/17 01:05 05/22/17 04:03 05/22/17 06:13 Bedside Glucose 95 mg/dl 80 mg/dl 113 mg/dl White Blood Count 9.48 K/uL Red Blood Count 4.01 M/uL Hemoglobin 11.8 g/dL Hematocrit 35.0 % Mean Corpuscular Volume 87.3 fL Mean Corpuscular Hemoglobin 29.4 pg Mean Corpuscular Hemoglobin Concent 33.7 g/dl RDW Standard Deviation 40.5 fL RDW Coefficient of Variation 12.6 % Platelet Count 351 K/uL Mean Platelet Volume 10.2 fL Sodium Level 138 mmol/L Potassium Level 3.6 mmol/L Chloride Level 102 mmol/L Carbon Dioxide Level 30 mmol/L Anion Gap 6.0 mmol/L Blood Urea Nitrogen 9 mg/dl Creatinine 0.88 mg/dl Est Creatinine Clear Calc Drug Dose 94.5 ml/min Estimated GFR () 108.2 Estimated GFR (Non- 93.4 BUN/Creatinine Ratio 10.0 Random Glucose 159 mg/dl Calcium Level 9.1 mg/dl Test 05/22/17 08:03 05/22/17 12:00 05/22/17 16:10 05/22/17 17:12 Bedside Glucose 176 mg/dl 474 mg/dl 402 mg/dl Prothrombin Time 10.7 SECONDS Prothromb Time International Ratio 1.0 Test 05/22/17 20:42 Bedside Glucose 269 mg/dl Assessment and Plan 62-year-old diabetic male with peripheral neuropathy now with recurrent osteomyelitis of the left foot status post revision surgery with partial amputation, with operative cultures growing MSSA. Patient changed to IV ceftriaxone in anticipation of prolonged outpatient IV therapy. Will continue to follow.
[2017-05-22 21:50] VITALS: BP 145/74; PULSE 81
[2017-05-22] MEDS: ATORVASTATIN 40 MG TAB PO SCH (21:53)
[2017-05-22] MEDS: INSULIN GLARGINE SOLOSTAR 100 UNITS/ML 3 ML PEN SC SCH (22:01)
[2017-05-22 23:35] VITALS: BP 132/78; PULSE 80; TEMP 37; O2SAT 98
[2017-05-23] MEDS ORDERED: INSULIN ASPART 100 UNITS/ML 3 ML PEN SC SCH (02:00)
[2017-05-23] MEDS: LEVOTHYROXINE 175 MCG TAB PO SCH (06:03)
[2017-05-23 06:30] LABS: HEMATOCRIT 39.4 % (42-52); MEAN CELL VOLUME 88.1 fL (80-100); MEAN CORPUSCULAR HEMOGLOBIN 28.9 pg (25-34); MEAN CORPUSCULAR HGB CONC 32.7 g/dl (32-36); MEAN PLATELET VOLUME 10.1 fL (7.4-10.4); PLATELET COUNT 397 K/uL (130-400); RED BLOOD COUNT 4.47 M/uL (4.7-6.1); WHITE BLOOD COUNT 8.72 K/uL (4.8-10.8)
[2017-05-23 07:15] VITALS: BP 137/72; PULSE 90; TEMP 36.7; O2SAT 90
--- NOTE | 2017-05-23 08:54 | Pharmacy Progress Note ---
Glycemic Control Progress Note Date of Service May 23, 2017. Scope Glycemic Pharmacist consulted for glycemic control to write orders per [facility] inpatient glycemic control protocol. Objective Accuchecks BSG (last 24hrs): Test 05/22/17 12:00 05/22/17 17:12 05/22/17 20:42 05/23/17 02:03 Bedside Glucose 474 mg/dl (70-99) 402 mg/dl (70-99) 269 mg/dl (70-99) 89 mg/dl (70-99) Test 05/23/17 08:00 Bedside Glucose 79 mg/dl (70-99) HbA1c: Test 05/19/17 18:17 Hemoglobin A1c 11.2 % (4.5-5.6) H Recent Pertinent Medications Outpatient Anti-diabetic Regimen: * Lantus 35 units qPM + Novolog 5-10 units ACHS The patient is currently receiving: * Basal insulin: Lantus 38 units every 24 hours in the evening * Correctional Insulin: Novolog Correction per scale ACHS Goal Range: Low 100 mg/dL - High 140 mg/dL Correction Factor: 20 mg/dL/unit * Prandial insulin: Per carb ratio of 1 unit per 5 grams CHO consumed Risk Factors for Insulin Resistance: * Infection: osteomyelitis of 5th metatarsal on daptomycin * Recent Surgery: POD 4 for revision of amputation of L foot * Diet: type 2 diabetic diet Outpatient Anti-Diabetic Meds see above Assessment & Plan ASSESSMENT: * ADA & AACE recommend a goal blood sugar range 140-180 mg/dl for the majority of critically ill & non-critically ill patients. However, more stringent targets may be selected in individual cases. Will utilize more stringent goal of 100-140mg/dl based on patient age & comorbidities. Additionally, tighter glycemic control is warranted to facilitate wound/infection healing. * Mr Chowdhury is a 62 y/o M with a PMH of type 1 diabetes with peripheral neuropathy admitted with left foot osteomyelitis. He underwent a revision of an amputation on 05/20/17. He is currently on daptomycin. Mr Chowdhury is relatively well known to the glycemic service. While here, he typically requires around 70 units /day. * Yesterday, Mr Chowdhury's blood sugars were elevated. He received a total of 109 units of SQ insulin (38 units of basal and 71 units of bolus) + 10 units IV insulin. His blood sugars ranged from 80-474 mg/dL. This morning his fasting blood sugar is 79 mg/dL. Yesterday, Mr Chowdhury's carbohydrate ratio was decreased from 7 to 6 at lunch and then 5 at supper. Along with 5 units of IV insulin at each meal, this decreased blood sugars from 474 mg/dL to 402 mg/dL to 269 mg/ dL. Overnight his blood sugars decreased to 89 mg/dL. * It is not exactly clear what was the source of the high blood sugars yesterday...and the sustained high blood sugars throughout the day. The increased Lantus will be kept on board tonight. Carbohydrate ratio loosened to 6 at breakfast but this did not seem sufficient. Increased back to 5. PLAN FOR INPATIENT GLYCEMIC CONTROL: * Continuing Lantus 38 units SQ HS * Continuing correction factor of 20 mg/dl/unit * TIGHTENING carb ratio to 1 unit per 5 grams CHO consumed * Continuing goal range of Low 100 mg/dL - High 140 mg/dL OUTPATIENT RECOMMENDATIONS * The patient's HbA1C is currently 11.2% which is slightly higher than his typical HbA1C (9-10%). Recommend follow-up with the diabetes clinic for education and adjustments of regimen. It appears that diet, compliance, and follow-up are the source of the patient's elevated blood sugars. Thank you.
--- NOTE | 2017-05-23 09:03 | Orthopedic Progress Note ---
Orthopedic Progress Note Date of Service May 23, 2017. Subjective Post OP Day: 3 Reports: feeling well, pain controlled w PO medications, Denies: complaints, chest pain, SOB, nausea / vomiting, light headedness, calf pain, using HEAD OF ADVERTISING Objective calves soft nontender, N/V intact, capillary refill less than 2 sec., dressing C /D/I, A&O x3, toes mobile, CMS intact Date Time Temp Pulse Resp B/P (MAP) Pulse Ox O2 Delivery O2 Flow Rate FiO2 05/23/17 07:15 36.7 90 18 137/72 (93) 90 Room Air 05/22/17 23:50 Room Air 05/22/17 23:35 37.0 80 18 132/78 (96) 98 Room Air 05/22/17 21:50 81 145/74 (97) 05/22/17 16:10 Room Air 05/22/17 15:24 37.2 81 18 152/78 (102) 98 Room Air Laboratory Results 24 Hours: Test 05/22/17 16:10 05/23/17 05:54 Prothromb Time International Ratio 1.0 Prothrombin Time 10.7 SECONDS Hematocrit 39.4 % Hemoglobin 12.9 g/dL Assessment & Plan Assessment: Day 3 s/p Left fifth metatarsal amputation Plan: Dressing left in place that was placed by Wound care staff yesterday. Possible Wound vac placement later today by Wound Care Physician. NWB on Left LE May transport with wheelchair or knee scooter. Will discuss findings with Dr. Soto.
[2017-05-23] MEDS: LOSARTAN POTASSIUM 25 MG TAB PO SCH (09:11)
[2017-05-23] MEDS: CHOLECALCIFEROL 1000 INTER.UNIT TAB PO SCH (09:11)
[2017-05-23] MEDS: PANTOprazole SOD 40 MG TAB PO SCH (09:12)
[2017-05-23] MEDS: CALCIUM CARBONATE 500 MG CHEWABLE PO SCH (09:12)
[2017-05-23] MEDS: DOCUSATE SODIUM 100 MG CAP PO SCH ×2 (09:13→21:12)
[2017-05-23] MEDS: METOPROLOL TARTRATE 25 MG TAB PO SCH ×2 (09:13→21:12)
[2017-05-23] MEDS: ASPIRIN 81 MG ECTAB PO SCH (09:15)
[2017-05-23] MEDS: CLOPIDOGREL BISULFATE 75 MG TAB PO SCH ×2 (09:15→10:15)
[2017-05-23] MEDS: INSULIN ASPART 100 UNITS/ML 3 ML PEN SC SCH ×4 (09:21→21:19)
[2017-05-23] MEDS: HEPARIN SOD 5000 UNIT/0.5 ML CARP SQ SCH ×2 (09:22→21:18)
--- NOTE | 2017-05-23 14:08 | Wound Progress Note: Inpatient ---
Wound Progress Note Date of Service May 22, 2017. Subjective Pt evaluation today including: conversation w/ patient, physical exam, chart review Patient was seen today for follow-up evaluation after surgical removal of the proximal fifth metatarsal on Monday. Patient denies any pain swelling or excess drainage. Patient denies any other systemic complaints at this time. Objective Vital Signs Date Time Temp Pulse Resp B/P (MAP) Pulse Ox O2 Delivery O2 Flow Rate FiO2 05/23/17 08:00 Room Air 05/23/17 07:15 36.7 90 18 137/72 (93) 90 Room Air 05/22/17 23:50 Room Air 05/22/17 23:35 37.0 80 18 132/78 (96) 98 Room Air 05/22/17 21:50 81 145/74 (97) 05/22/17 16:10 Room Air 05/22/17 15:24 37.2 81 18 152/78 (102) 98 Room Air Physical Exam Notes: Patients vital signs were reviewed and found to be unremarkable patient is afebrile. The wound site today measures 3.3 x 3.7 x 1.4 cm. Some scattered slough is noted in the base there is no active drainage or odor there is some periwound maceration erythema present. No pain to palpation or fluctuance noted in the periphery. Laboratory Results Last 24 Hours Test 05/22/17 16:10 05/22/17 17:12 05/22/17 20:42 05/23/17 02:03 Prothrombin Time 10.7 SECONDS Prothromb Time International Ratio 1.0 Bedside Glucose 402 mg/dl 269 mg/dl 89 mg/dl Test 05/23/17 05:54 05/23/17 08:00 White Blood Count 8.72 K/uL Red Blood Count 4.47 M/uL Hemoglobin 12.9 g/dL Hematocrit 39.4 % Mean Corpuscular Volume 88.1 fL Mean Corpuscular Hemoglobin 28.9 pg Mean Corpuscular Hemoglobin Concent 32.7 g/dl RDW Standard Deviation 39.2 fL RDW Coefficient of Variation 12.3 % Platelet Count 397 K/uL Mean Platelet Volume 10.1 fL Bedside Glucose 79 mg/dl Assessment and Plan Assessment: Postoperative wound left foot Plan: At this time no debridement is indicated. It is my recommendations the patient had a irrigating wound VAC applied 10 minutes of irrigation with normal saline followed by 2 hours of VAC therapy. Black foam at the base. Following 48 hours of irrigation it is anticipated the patient will be transferred to a routine outpatient VAC and discharge at that time. Current antibiotic therapy should be continued throughout. Patient will continue to be monitored during his hospital course and continue to be reevaluated in the outpatient clinic.
[2017-05-23 15:06] VITALS: BP 137/70; PULSE 90; TEMP 36.8; O2SAT 99
--- NOTE | 2017-05-23 16:02 | Consultant Recommendations ---
Securities Lending Trader Recommendations Date of Service May 23, 2017. Securities Lending Trader Recommendations Follow up with Dr. Soto at [facility] on 05/31/17 at 3:00 p.m. Please call [phone] with any questions or concerns.
--- NOTE | 2017-05-23 16:19 | Progress Note ---
Progress Note Date of Service May 23, 2017. Progress Note Patient doing well, wound vac in place/functioning well left foot. Left foot elevated on pillows. Using walker to assist with ambulation. Minimal swelling left foot. Okay for discharge to home for ortho standpoint when medically stable. Out patient follow up scheduled for next week. Continue IV antibiotics per ID. Continue wound vac per Dr. Eddy. All questions answered, will recheck daily. Please call with questions.
[2017-05-23] MEDS: CEFTRIAXONE SOD INJ 2,000 MG in DEXTROSE 5% 50ML 50 ML IV SCH (16:29)
--- NOTE | 2017-05-23 17:43 | Infectious Disease Progress Nt ---
Progress Note Date of Service May 23, 2017. Subjective Pt evaluation today including: conversation w/ patient, physical exam, chart review, lab review, review of studies, conversation w/ hematology oncology consultant, review of inpatient medication list Patient offers no new complaints today. Remains afebrile. Pain controlled. All Other Systems: Reviewed and Negative Medications Current Inpatient Medications Medications (Trade) Dose Ordered Sig/Malu Route Start Time Stop Time Status Last Admin Dose Admin Acetaminophen (Tylenol Tab) 650 mg Q4H PRN PO 05/19/17 18:00 06/18/17 17:59 Magnesium Hydroxide (Milk Of Magnesia Susp) 30 ml Q6H PRN PO 05/19/17 18:00 06/18/17 17:59 Ondansetron HCl (Zofran Inj) 4 mg Q6H PRN IV 05/19/17 18:00 06/18/17 17:59 Glucose (Glucose 40% Gel) 15-30 GRAMS 15 GRAMS... UD PRN PO 05/19/17 18:00 06/18/17 17:59 Glucose (Glucose Chew Tab) 4-8 Tablets 4 Tabl... UD PRN PO 05/19/17 18:00 06/18/17 17:59 Dextrose (Dextrose 50% 50ML Syringe) 25-50ML OF 50% DW IV FOR... UD PRN IV 05/19/17 18:00 06/18/17 17:59 Glucagon (Glucagon Inj) 1 mg UD PRN SQ 05/19/17 18:00 06/18/17 17:59 Atorvastatin Calcium (Lipitor Tab) 80 mg HS PO 05/19/17 21:00 06/18/17 20:59 05/22/17 21:53 80 MG Levothyroxine Sodium (Synthroid Tab) 175 mcg DAILYBB PO 05/20/17 06:00 06/19/17 05:59 05/23/17 06:03 175 MCG Losartan Potassium (coZAAR TAB) 25 mg DAILY PO 05/20/17 09:00 06/19/17 08:59 05/23/17 09:11 25 MG Metoprolol Tartrate (Lopressor Tab) 12.5 mg BID PO 05/19/17 21:00 06/18/17 20:59 05/23/17 09:13 12.5 MG Pantoprazole Sodium (Protonix Tab) 40 mg QAM PO 05/20/17 09:00 06/19/17 08:59 05/23/17 09:12 40 MG Calcium Carbonate (Tums Chew Tab) 500 mg DAILY PO 05/20/17 09:00 06/19/17 08:59 05/23/17 09:12 500 MG Cholecalciferol (Vitamin D Tab) 2,000 inter.unit QAM PO 05/20/17 09:00 06/19/17 08:59 05/23/17 09:11 2,000 INTER.UNIT Oxycodone/ Acetaminophen (Percocet 5-325mg Tab) 1 tab Q4H PRN PO 05/19/17 22:00 06/02/17 21:59 Senna (Senokot Tab) 17.2 mg HS PO 05/20/17 21:00 06/19/17 20:59 05/20/17 21:00 17.2 MG Docusate Sodium (coLACE CAP) 100 mg BID PO 05/20/17 21:00 06/19/17 20:59 05/23/17 09:13 100 MG Insulin Aspart (novoLOG ASPART) SLIDING SCALE If C... ACHS SC 05/20/17 12:00 06/19/17 11:59 05/23/17 13:26 16 UNITS Miscellaneous Information (Consult Glycemic Management Pharmacy) 1 ea UD PRN N/A 05/21/17 17:51 06/20/17 17:50 Ceftriaxone Sodium 2000 mg/ Dextrose 70 ml @ 100 mls/hr Q24H IV 05/22/17 16:00 07/03/17 15:59 05/23/17 16:29 100 MLS/HR Heparin Sodium (Porcine) (Heparin Sq 5000 Unit/0.5ml) 5,000 unit Q12 SQ 05/23/17 09:00 06/22/17 08:59 05/23/17 09:22 5,000 UNIT Clopidogrel Bisulfate (plAVix TAB) 75 mg QAM PO 05/23/17 08:00 06/22/17 07:59 05/23/17 09:15 75 MG Aspirin (Ecotrin Tab) 81 mg QAM PO 05/23/17 09:00 06/22/17 08:59 05/23/17 09:15 81 MG Insulin Glargine (Lantus Solostar Pen) 38 units QPM SC 05/22/17 21:00 06/21/17 20:59 05/22/17 22:01 38 UNITS Objective Vital Signs Date Time Temp Pulse Resp B/P (MAP) Pulse Ox O2 Delivery O2 Flow Rate FiO2 05/23/17 15:06 36.8 90 18 137/70 (92) 99 Room Air 05/23/17 08:00 Room Air 05/23/17 07:15 36.7 90 18 137/72 (93) 90 Room Air 05/22/17 23:50 Room Air 05/22/17 23:35 37.0 80 18 132/78 (96) 98 Room Air 05/22/17 21:50 81 145/74 (97) Physical Exam General Appearance: WD/WN, no apparent distress Eyes: normal inspection, EOMI, sclerae normal ENT: normal ENT inspection, pharynx normal Neck: supple, no adenopathy, thyroid normal, trachea midline Respiratory/Chest: chest non-tender, lungs clear, normal breath sounds, no respiratory distress Cardiovascular: regular rate, rhythm, no gallop, no murmur Abdomen: normal bowel sounds, non tender, soft, no organomegaly Extremities: non-tender, no calf tenderness Neurologic/Psychiatric: alert, oriented x 3 Skin: normal color, no rash, + pertinent finding ( Surgical dressing intact left foot) Lymphatic: no adenopathy Laboratory Results Last 24 Hours Test 05/22/17 20:42 05/23/17 02:03 05/23/17 05:54 05/23/17 08:00 Bedside Glucose 269 mg/dl 89 mg/dl 79 mg/dl White Blood Count 8.72 K/uL Red Blood Count 4.47 M/uL Hemoglobin 12.9 g/dL Hematocrit 39.4 % Mean Corpuscular Volume 88.1 fL Mean Corpuscular Hemoglobin 28.9 pg Mean Corpuscular Hemoglobin Concent 32.7 g/dl RDW Standard Deviation 39.2 fL RDW Coefficient of Variation 12.3 % Platelet Count 397 K/uL Mean Platelet Volume 10.1 fL Assessment and Plan 62-year-old diabetic male with peripheral neuropathy now with recurrent osteomyelitis of the left foot status post revision surgery with partial amputation, with operative cultures growing MSSA. Patient changed to IV ceftriaxone in anticipation of prolonged outpatient IV therapy. Will continue to follow.
--- NOTE | 2017-05-23 18:48 | Progress Note ---
Subjective Date of Service: May 23, 2017. Subjective Pt evaluation today including: conversation w/ patient, physical exam Patient is here for left foot osteomyelitis. On IV antibiotics. Patient reports feeling well. No complaints. Problem List Medical Problems: (1) Abdominal discomfort, epigastric Status: Acute (2) Abscess of great toe, right Status: Acute (3) Cellulitis of right foot Status: Acute (4) Fall Status: Acute (5) Hypoglycemia due to type 2 diabetes mellitus Status: Acute (6) Injury of right hip Status: Acute Review of Systems All Other Systems: Reviewed and Negative Medications Medications (Trade) Dose Ordered Sig/Malu Route Start Time Stop Time Status Last Admin Dose Admin Heparin Sodium (Porcine) (Heparin Sq 5000 Unit/0.5ml) 5,000 unit Q12 SQ 05/23/17 09:00 06/22/17 08:59 05/23/17 21:18 5,000 UNIT Clopidogrel Bisulfate (plAVix TAB) 75 mg QAM PO 05/23/17 08:00 06/22/17 07:59 05/23/17 09:15 75 MG Aspirin (Ecotrin Tab) 81 mg QAM PO 05/23/17 09:00 06/22/17 08:59 05/23/17 09:15 81 MG Current Inpatient Medications Medications (Trade) Dose Ordered Sig/Malu Route Start Time Stop Time Status Last Admin Dose Admin Acetaminophen (Tylenol Tab) 650 mg Q4H PRN PO 05/19/17 18:00 06/18/17 17:59 Magnesium Hydroxide (Milk Of Magnesia Susp) 30 ml Q6H PRN PO 05/19/17 18:00 06/18/17 17:59 Ondansetron HCl (Zofran Inj) 4 mg Q6H PRN IV 05/19/17 18:00 06/18/17 17:59 Glucose (Glucose 40% Gel) 15-30 GRAMS 15 GRAMS... UD PRN PO 05/19/17 18:00 06/18/17 17:59 Glucose (Glucose Chew Tab) 4-8 Tablets 4 Tabl... UD PRN PO 05/19/17 18:00 06/18/17 17:59 Dextrose (Dextrose 50% 50ML Syringe) 25-50ML OF 50% DW IV FOR... UD PRN IV 05/19/17 18:00 06/18/17 17:59 Glucagon (Glucagon Inj) 1 mg UD PRN SQ 05/19/17 18:00 06/18/17 17:59 Atorvastatin Calcium (Lipitor Tab) 80 mg HS PO 05/19/17 21:00 06/18/17 20:59 05/23/17 21:12 80 MG Levothyroxine Sodium (Synthroid Tab) 175 mcg DAILYBB PO 05/20/17 06:00 06/19/17 05:59 05/23/17 06:03 175 MCG Losartan Potassium (coZAAR TAB) 25 mg DAILY PO 05/20/17 09:00 06/19/17 08:59 05/23/17 09:11 25 MG Metoprolol Tartrate (Lopressor Tab) 12.5 mg BID PO 05/19/17 21:00 06/18/17 20:59 05/23/17 21:12 12.5 MG Pantoprazole Sodium (Protonix Tab) 40 mg QAM PO 05/20/17 09:00 06/19/17 08:59 05/23/17 09:12 40 MG Calcium Carbonate (Tums Chew Tab) 500 mg DAILY PO 05/20/17 09:00 06/19/17 08:59 05/23/17 09:12 500 MG Cholecalciferol (Vitamin D Tab) 2,000 inter.unit QAM PO 05/20/17 09:00 06/19/17 08:59 05/23/17 09:11 2,000 INTER.UNIT Oxycodone/ Acetaminophen (Percocet 5-325mg Tab) 1 tab Q4H PRN PO 05/19/17 22:00 06/02/17 21:59 Senna (Senokot Tab) 17.2 mg HS PO 05/20/17 21:00 06/19/17 20:59 05/20/17 21:00 17.2 MG Docusate Sodium (coLACE CAP) 100 mg BID PO 05/20/17 21:00 06/19/17 20:59 05/23/17 21:12 100 MG Insulin Aspart (novoLOG ASPART) SLIDING SCALE If C... ACHS SC 05/20/17 12:00 06/19/17 11:59 05/23/17 21:19 1 UNITS Miscellaneous Information (Consult Glycemic Management Pharmacy) 1 ea UD PRN N/A 05/21/17 17:51 06/20/17 17:50 Ceftriaxone Sodium 2000 mg/ Dextrose 70 ml @ 100 mls/hr Q24H IV 05/22/17 16:00 07/03/17 15:59 05/23/17 16:29 100 MLS/HR Heparin Sodium (Porcine) (Heparin Sq 5000 Unit/0.5ml) 5,000 unit Q12 SQ 05/23/17 09:00 06/22/17 08:59 05/23/17 21:18 5,000 UNIT Clopidogrel Bisulfate (plAVix TAB) 75 mg QAM PO 05/23/17 08:00 06/22/17 07:59 05/23/17 09:15 75 MG Aspirin (Ecotrin Tab) 81 mg QAM PO 05/23/17 09:00 06/22/17 08:59 05/23/17 09:15 81 MG Insulin Glargine (Lantus Solostar Pen) 38 units QPM SC 05/22/17 21:00 06/21/17 20:59 05/23/17 21:18 38 UNITS Objective Vital Signs Date Time Temp Pulse Resp B/P (MAP) Pulse Ox O2 Delivery O2 Flow Rate FiO2 05/23/17 15:06 36.8 90 18 137/70 (92) 99 Room Air 05/23/17 08:00 Room Air 05/23/17 07:15 36.7 90 18 137/72 (93) 90 Room Air 05/22/17 23:50 Room Air 05/22/17 23:35 37.0 80 18 132/78 (96) 98 Room Air 05/22/17 21:50 81 145/74 (97) Physical Exam General Appearance: WD/WN, no apparent distress Eyes: normal inspection, PERRL, EOMI Neck: supple, no adenopathy Cardiovascular: regular rate, rhythm, no edema, no gallop Abdomen: normal bowel sounds, non tender, soft, no organomegaly Extremities: non-tender Comments: left foot, dry, wound vac in place. no erythema noted. Laboratory Results Last 24 Hours Test 05/22/17 20:42 05/23/17 02:03 05/23/17 05:54 05/23/17 08:00 Bedside Glucose 269 mg/dl 89 mg/dl 79 mg/dl White Blood Count 8.72 K/uL Red Blood Count 4.47 M/uL Hemoglobin 12.9 g/dL Hematocrit 39.4 % Mean Corpuscular Volume 88.1 fL Mean Corpuscular Hemoglobin 28.9 pg Mean Corpuscular Hemoglobin Concent 32.7 g/dl RDW Standard Deviation 39.2 fL RDW Coefficient of Variation 12.3 % Platelet Count 397 K/uL Mean Platelet Volume 10.1 fL Test 05/23/17 17:05 Bedside Glucose 181 mg/dl Assessment and Plan 62 y/o M who was a direct admit from Dr. Eddy for recurrent osteomyelitis that has failed outpt management Recurrent osteo: L 5th metatarsal Cx + awating final results: preliminary shows MSSA MRI as noted Dapto started initally but switched to ceftriaxone today. (day 4 of antibiotic) Pt was active with Dr. Soto, Dr. Ennis, Dr. Eddy--all have been consulted No leukocytosis or fevers Patient had left foot revision and wound debridement ID is on board. Discharge planning initiated. DM: A1c 11.2 Manages at home with SSI and lantus 35units HS Cont full lantus postop. glycemic control on board and diabetes education as hba1c was 11. CAD, PAD with iliac stents: Patient had CABG x1 to RCA and Aortic bioprosthetic valve 10/29/2015 at [facility] [place] [facility] [place] aspirin/plavix Last dose was 05/19 will restart today ASA and plavix. Continue other home meds Hypothyroid: continue home meds DVT proph: Heprain sub 5,000 q12h cont. SCDs Other: Full code, although does state that he would not want a feeding tube or prolonged mechanical life support. "That isn't real living". Continued [facility] stay due to: multiple IV medications needed, other ( Uncontrolled Blood sugars, with osteo and recent amputation requiring IV antibiotics.) Discharge planning: home
[2017-05-23] MEDS: SENNA 8.6 MG TAB PO SCH (21:00)
[2017-05-23 21:08] VITALS: BP 116/69; PULSE 79
[2017-05-23] MEDS: ATORVASTATIN 40 MG TAB PO SCH (21:12)
[2017-05-23] MEDS: INSULIN GLARGINE SOLOSTAR 100 UNITS/ML 3 ML PEN SC SCH (21:18)
[2017-05-23 23:15] VITALS: BP 158/70; PULSE 86; TEMP 37; O2SAT 98
[2017-05-24] MEDS: LEVOTHYROXINE 175 MCG TAB PO SCH (05:37)
[2017-05-24 07:36] LABS: BASO % 0.7 %; BASO ABS # 0.04 K/uL (0-0.2); COMPLETE YES; EOS % 4.4 %; HEMATOCRIT 37.6 % (42-52); IG% 0.3 %; LYMPH % 24.4 %; LYMPH ABS # 1.44 K/uL (1.2-3.4); MEAN CELL VOLUME 87.2 fL (80-100); MEAN CORPUSCULAR HEMOGLOBIN 29.2 pg (25-34); MEAN CORPUSCULAR HGB CONC 33.5 g/dl (32-36); MEAN PLATELET VOLUME 9.7 fL (7.4-10.4); MONO % 11.4 %; NEUT % 58.8 %; PLATELET COUNT 373 K/uL (130-400); RED BLOOD COUNT 4.31 M/uL (4.7-6.1)
[2017-05-24 08:03] VITALS: BP 152/73; PULSE 93; TEMP 36.6; O2SAT 98
[2017-05-24 08:06] LABS: BUN/CREATININE RATIO 16.5 (10-20); CALCIUM 10.1 mg/dl (8.5-10.1); POTASSIUM 4.4 mmol/L (3.5-5.1)
[2017-05-24] MEDS: DOCUSATE SODIUM 100 MG CAP PO SCH ×2 (08:56→21:31)
[2017-05-24] MEDS: CALCIUM CARBONATE 500 MG CHEWABLE PO SCH (08:57)
[2017-05-24] MEDS: METOPROLOL TARTRATE 25 MG TAB PO SCH ×2 (08:58→21:00)
[2017-05-24] MEDS: CHOLECALCIFEROL 1000 INTER.UNIT TAB PO SCH (08:58)
[2017-05-24] MEDS: ASPIRIN 81 MG ECTAB PO SCH (08:59)
[2017-05-24] MEDS: CLOPIDOGREL BISULFATE 75 MG TAB PO SCH (08:59)
[2017-05-24] MEDS: LOSARTAN POTASSIUM 25 MG TAB PO SCH (08:59)
[2017-05-24] MEDS: PANTOprazole SOD 40 MG TAB PO SCH (09:00)
[2017-05-24] MEDS: INSULIN ASPART 100 UNITS/ML 3 ML PEN SC SCH ×3 (09:07→19:33)
[2017-05-24] MEDS: HEPARIN SOD 5000 UNIT/0.5 ML CARP SQ SCH ×2 (09:08→21:42)
--- NOTE | 2017-05-24 09:13 | Orthopedic Progress Note ---
Orthopedic Progress Note Date of Service May 24, 2017. Subjective Post OP Day: 4 Reports: feeling well, pain controlled w PO medications, Denies: complaints, chest pain, SOB, nausea / vomiting, light headedness, calf pain Objective calves soft nontender, capillary refill less than 2 sec., dressing C/D/I, A&O x3 , toes mobile Wound vac in place, functioning. Mild tenderness with palpation of plantar surface of foot. decreased sensation to light touch plantar surface of toes/ foot due to neuropathy. Date Time Temp Pulse Resp B/P (MAP) Pulse Ox O2 Delivery O2 Flow Rate FiO2 05/24/17 08:03 36.6 93 18 152/73 (99) 98 Room Air 05/24/17 07:45 Room Air 05/23/17 23:15 37.0 86 17 158/70 (99) 98 Room Air 05/23/17 21:08 79 116/69 (85) 05/23/17 19:45 Room Air 05/23/17 15:06 36.8 90 18 137/70 (92) 99 Room Air Laboratory Results 24 Hours: Test 05/24/17 07:12 White Blood Count 5.90 K/uL Red Blood Count 4.31 M/uL Hemoglobin 12.6 g/dL Hematocrit 37.6 % Mean Corpuscular Volume 87.2 fL Mean Corpuscular Hemoglobin 29.2 pg Mean Corpuscular Hemoglobin Concent 33.5 g/dl Platelet Count 373 K/uL Mean Platelet Volume 9.7 fL Neutrophils (%) (Auto) 58.8 % Lymphocytes (%) (Auto) 24.4 % Monocytes (%) (Auto) 11.4 % Eosinophils (%) (Auto) 4.4 % Basophils (%) (Auto) 0.7 % Neutrophils # (Auto) 3.47 K/uL Lymphocytes # (Auto) 1.44 K/uL Monocytes # (Auto) 0.67 K/uL Eosinophils # (Auto) 0.26 K/uL Basophils # (Auto) 0.04 K/uL Assessment & Plan Assessment: POD 4 - s/p Left fifth metatarsal revision amputation and debridement Plan: NWB on Left LE Continue OOB Tolerating regular diet. On heparin for DVT prophylaxis per primary team Continue IV antibiotics May transport with wheelchair or knee scooter. Continue wound vac, seems that it will be changed Monday and then potentially ready for discharge to home. The decision to go home with a vac or dressings will be made Monday once irrigating wound vac removed according to the patient. Will discuss findings with Dr. Soto and continue to follow during his hospital stay. Appointment made for outpatient follow up next Mon with Dr. Soto.
--- NOTE | 2017-05-24 10:11 | Pharmacy Progress Note ---
Glycemic Control Progress Note Date of Service May 24, 2017. Scope Glycemic Pharmacist consulted for glycemic control to write orders per [facility] inpatient glycemic control protocol. Objective Accuchecks BSG (last 24hrs): Test 05/23/17 12:03 05/23/17 17:05 05/23/17 21:02 05/23/17 23:21 Bedside Glucose 232 mg/dl (70-99) 181 mg/dl (70-99) 157 mg/dl (70-99) 72 mg/dl (70-99) Test 05/24/17 00:02 05/24/17 07:12 05/24/17 08:00 Bedside Glucose 80 mg/dl (70-99) 197 mg/dl (70-99) Random Glucose 193 mg/dl (70-99) HbA1c: Test 05/19/17 18:17 Hemoglobin A1c 11.2 % (4.5-5.6) H Recent Pertinent Medications Outpatient Anti-diabetic Regimen: * Lantus 35 units qPM + Novolog 5-10 units ACHS The patient is currently receiving: * Basal insulin: Lantus 38 units every 24 hours in the evening * Correctional Insulin: Novolog Correction per scale ACHS Goal Range: Low 100 mg/dL - High 140 mg/dL Correction Factor: 20 mg/dL/unit * Prandial insulin: Per carb ratio of 1 unit per 5 grams CHO consumed Risk Factors for Insulin Resistance: * Infection: osteomyelitis of 5th metatarsal on Rocephin * Recent Surgery: POD 5 for revision of amputation of L foot * Diet: type 2 diabetic diet Outpatient Anti-Diabetic Meds see above Assessment & Plan ASSESSMENT: * ADA & AACE recommend a goal blood sugar range 140-180 mg/dl for the majority of critically ill & non-critically ill patients. However, more stringent targets may be selected in individual cases. Will utilize more stringent goal of 100-140mg/dl based on patient age & comorbidities. Additionally, tighter glycemic control is warranted to facilitate wound/infection healing. * Mr Chowdhury is a 62 y/o M with a PMH of type 1 diabetes with peripheral neuropathy admitted with left foot osteomyelitis. He underwent a revision of an amputation on 05/20/17. He is currently on Rocephin. Mr Chowdhury is relatively well known to the glycemic service. While here, he typically requires around 70 units /day. * Today's fasting blood sugar is 197 mg/dL. Patient received 81 units of insulin yesterday (35 units of basal and 46 units of bolus) with blood sugars ranging 79-232 mg/dL. Overnight accuchecks reveal that patient dips to 80 mg/dL at 4 AM and then rebounds for the morning. This is the john phenomenon - will remove HS accucheck with correction factor to prevent this. Patient even ate an uncovered snack last night. Per interview with patient, the nurses gave him peanut butter and ego crackers because he felt that his blood sugar was low. Lowered night Lantus dose to 35 units. Add Lantus 10 units tomorrow morning. Worried about increasing Lantus in the evening due to these low blood sugars at midnight and 2 AM. However, it appears that the patient requires more Lantus so will add in the morning. * Overall, the patient's post-prandial blood sugars appear improved. However, at lunch, the patient's blood sugar increased significantly to 330 mg/dL. After speaking with the nurse, it was discovered that the patient consumed bengali toast, OJ, and frisian yogurt. This same thing happened on 05/22 when the patient ate pancakes for breakfast. It appears to be a carbohydrate problem at this point. Tightened both parameters for today. When AM Lantus is given, may require loosening of parameters. * Patient has very labile blood sugars. Per check examiner note, this is true for the patient even at home. Will attempt to control patient as well as possible while hospitalized. Per patient interview, his blood sugars can be quite labile at home. PLAN FOR INPATIENT GLYCEMIC CONTROL: * DECREASE to Lantus 35 units SQ HS and add Lantus 10 units SQ qAM * TIGHTEN correction factor to 15 mg/dl/unit --> removed at bedtime secondary to john phenomenon * TIGHTEN carb ratio to 1 unit per 4 grams CHO consumed --> removed at bedtime secondary to john phenomenon * Continuing goal range of Low 100 mg/dL - High 140 mg/dL OUTPATIENT RECOMMENDATIONS * The patient's HbA1C is currently 11.2% which is slightly higher than his typical HbA1C (9-10%). Recommend follow-up with the diabetes clinic for education and adjustments of regimen. It appears that diet, compliance, and follow-up are the source of the patient's elevated blood sugars. Thank you.
--- NOTE | 2017-05-24 15:59 | Infectious Disease Progress Nt ---
Progress Note Date of Service May 24, 2017. Subjective Pt evaluation today including: conversation w/ patient, physical exam, chart review, lab review, review of studies, conversation w/ education consultant, review of inpatient medication list Patient offers no new complaints today. Remains afebrile. Pain controlled. Wound VAC to be changed on Monday. All Other Systems: Reviewed and Negative Medications Current Inpatient Medications Medications (Trade) Dose Ordered Sig/Malu Route Start Time Stop Time Status Last Admin Dose Admin Acetaminophen (Tylenol Tab) 650 mg Q4H PRN PO 05/19/17 18:00 06/18/17 17:59 Magnesium Hydroxide (Milk Of Magnesia Susp) 30 ml Q6H PRN PO 05/19/17 18:00 06/18/17 17:59 Ondansetron HCl (Zofran Inj) 4 mg Q6H PRN IV 05/19/17 18:00 06/18/17 17:59 Glucose (Glucose 40% Gel) 15-30 GRAMS 15 GRAMS... UD PRN PO 05/19/17 18:00 06/18/17 17:59 Glucose (Glucose Chew Tab) 4-8 Tablets 4 Tabl... UD PRN PO 05/19/17 18:00 06/18/17 17:59 Dextrose (Dextrose 50% 50ML Syringe) 25-50ML OF 50% DW IV FOR... UD PRN IV 05/19/17 18:00 06/18/17 17:59 Glucagon (Glucagon Inj) 1 mg UD PRN SQ 05/19/17 18:00 06/18/17 17:59 Atorvastatin Calcium (Lipitor Tab) 80 mg HS PO 05/19/17 21:00 06/18/17 20:59 05/23/17 21:12 80 MG Levothyroxine Sodium (Synthroid Tab) 175 mcg DAILYBB PO 05/20/17 06:00 06/19/17 05:59 05/24/17 05:37 175 MCG Losartan Potassium (coZAAR TAB) 25 mg DAILY PO 05/20/17 09:00 06/19/17 08:59 05/24/17 08:59 25 MG Metoprolol Tartrate (Lopressor Tab) 12.5 mg BID PO 05/19/17 21:00 06/18/17 20:59 05/24/17 08:58 12.5 MG Pantoprazole Sodium (Protonix Tab) 40 mg QAM PO 05/20/17 09:00 06/19/17 08:59 05/24/17 09:00 40 MG Calcium Carbonate (Tums Chew Tab) 500 mg DAILY PO 05/20/17 09:00 06/19/17 08:59 05/24/17 08:57 500 MG Cholecalciferol (Vitamin D Tab) 2,000 inter.unit QAM PO 05/20/17 09:00 06/19/17 08:59 05/24/17 08:58 2,000 INTER.UNIT Oxycodone/ Acetaminophen (Percocet 5-325mg Tab) 1 tab Q4H PRN PO 05/19/17 22:00 06/02/17 21:59 Senna (Senokot Tab) 17.2 mg HS PO 05/20/17 21:00 06/19/17 20:59 05/20/17 21:00 17.2 MG Docusate Sodium (coLACE CAP) 100 mg BID PO 05/20/17 21:00 06/19/17 20:59 05/23/17 21:12 100 MG Miscellaneous Information (Consult Glycemic Management Pharmacy) 1 ea UD PRN N/A 05/21/17 17:51 06/20/17 17:50 Ceftriaxone Sodium 2000 mg/ Dextrose 70 ml @ 100 mls/hr Q24H IV 05/22/17 16:00 07/03/17 15:59 05/23/17 16:29 100 MLS/HR Heparin Sodium (Porcine) (Heparin Sq 5000 Unit/0.5ml) 5,000 unit Q12 SQ 05/23/17 09:00 06/22/17 08:59 05/24/17 09:08 5,000 UNIT Clopidogrel Bisulfate (plAVix TAB) 75 mg QAM PO 05/23/17 08:00 06/22/17 07:59 05/24/17 08:59 75 MG Aspirin (Ecotrin Tab) 81 mg QAM PO 05/23/17 09:00 06/22/17 08:59 05/24/17 08:59 81 MG Insulin Aspart (novoLOG ASPART) SLIDING SCALE If C... AC SC 05/24/17 12:00 06/23/17 11:59 05/24/17 13:50 30 UNITS Insulin Glargine (Lantus Solostar Pen) 35 units QPM MT 05/24/17 21:00 06/23/17 20:59 Insulin Glargine (Lantus Solostar Pen) 10 units QAM MT 05/25/17 09:00 06/24/17 08:59 Objective Vital Signs Date Time Temp Pulse Resp B/P (MAP) Pulse Ox O2 Delivery O2 Flow Rate FiO2 05/24/17 08:03 36.6 93 18 152/73 (99) 98 Room Air 05/24/17 07:45 Room Air 05/23/17 23:15 37.0 86 17 158/70 (99) 98 Room Air 05/23/17 21:08 79 116/69 (85) 05/23/17 19:45 Room Air Physical Exam General Appearance: WD/WN, no apparent distress Eyes: normal inspection, sclerae normal ENT: normal ENT inspection, pharynx normal Neck: supple, no adenopathy, trachea midline Respiratory/Chest: chest non-tender, lungs clear, normal breath sounds, no respiratory distress Cardiovascular: regular rate, rhythm, no gallop, no murmur Abdomen: normal bowel sounds, non tender, soft, no organomegaly Extremities: non-tender, no calf tenderness Neurologic/Psychiatric: alert, oriented x 3 Skin: normal color, no rash, + pertinent finding (Wound VAC in place left foot) Lymphatic: no adenopathy Laboratory Results Last 24 Hours Test 05/23/17 17:05 05/23/17 21:02 05/23/17 23:21 05/24/17 00:02 Bedside Glucose 181 mg/dl 157 mg/dl 72 mg/dl 80 mg/dl Test 05/24/17 07:12 05/24/17 08:00 05/24/17 12:14 White Blood Count 5.90 K/uL Red Blood Count 4.31 M/uL Hemoglobin 12.6 g/dL Hematocrit 37.6 % Mean Corpuscular Volume 87.2 fL Mean Corpuscular Hemoglobin 29.2 pg Mean Corpuscular Hemoglobin Concent 33.5 g/dl Platelet Count 373 K/uL Mean Platelet Volume 9.7 fL Neutrophils (%) (Auto) 58.8 % Lymphocytes (%) (Auto) 24.4 % Monocytes (%) (Auto) 11.4 % Eosinophils (%) (Auto) 4.4 % Basophils (%) (Auto) 0.7 % Neutrophils # (Auto) 3.47 K/uL Lymphocytes # (Auto) 1.44 K/uL Monocytes # (Auto) 0.67 K/uL Eosinophils # (Auto) 0.26 K/uL Basophils # (Auto) 0.04 K/uL RDW Standard Deviation 40.3 fL RDW Coefficient of Variation 12.6 % Immature Granulocyte % (Auto) 0.3 % Immature Granulocyte # (Auto) 0.02 K/uL Sodium Level 136 mmol/L Potassium Level 4.4 mmol/L Chloride Level 100 mmol/L Carbon Dioxide Level 32 mmol/L Anion Gap 4.0 mmol/L Blood Urea Nitrogen 17 mg/dl Creatinine 1.00 mg/dl Est Creatinine Clear Calc Drug Dose 83.1 ml/min Estimated GFR () 94.4 Estimated GFR (Non- 81.4 BUN/Creatinine Ratio 16.5 Random Glucose 193 mg/dl Calcium Level 10.1 mg/dl Bedside Glucose 197 mg/dl 330 mg/dl Assessment and Plan 62-year-old diabetic male with peripheral neuropathy now with recurrent osteomyelitis of the left foot status post revision surgery with partial amputation, with operative cultures growing MSSA. Patient changed to IV ceftriaxone in anticipation of prolonged outpatient IV therapy. Will continue to follow.
[2017-05-24 16:08] VITALS: BP 127/75; PULSE 78; TEMP 36.9; O2SAT 97
[2017-05-24] MEDS: CEFTRIAXONE SOD INJ 2,000 MG in DEXTROSE 5% 50ML 50 ML IV SCH (16:37)
--- NOTE | 2017-05-24 16:40 | Progress Note ---
Subjective Date of Service: May 24, 2017. Subjective Pt evaluation today including: conversation w/ patient, physical exam, chart review, lab review conversation w/ patient, physical exam Patient is here for left foot osteomyelitis. On IV antibiotics. Patient reports feeling well. No complaints. Problem List Medical Problems: (1) Abdominal discomfort, epigastric Status: Acute (2) Abscess of great toe, right Status: Acute (3) Cellulitis of right foot Status: Acute (4) Fall Status: Acute (5) Hypoglycemia due to type 2 diabetes mellitus Status: Acute (6) Injury of right hip Status: Acute Review of Systems ROS negative except for hpi. All Other Systems: Reviewed and Negative Medications Current Inpatient Medications Medications (Trade) Dose Ordered Sig/Malu Route Start Time Stop Time Status Last Admin Dose Admin Acetaminophen (Tylenol Tab) 650 mg Q4H PRN PO 05/19/17 18:00 06/18/17 17:59 Magnesium Hydroxide (Milk Of Magnesia Susp) 30 ml Q6H PRN PO 05/19/17 18:00 06/18/17 17:59 Ondansetron HCl (Zofran Inj) 4 mg Q6H PRN IV 05/19/17 18:00 06/18/17 17:59 Glucose (Glucose 40% Gel) 15-30 GRAMS 15 GRAMS... UD PRN PO 05/19/17 18:00 06/18/17 17:59 Glucose (Glucose Chew Tab) 4-8 Tablets 4 Tabl... UD PRN PO 05/19/17 18:00 06/18/17 17:59 Dextrose (Dextrose 50% 50ML Syringe) 25-50ML OF 50% DW IV FOR... UD PRN IV 05/19/17 18:00 06/18/17 17:59 Glucagon (Glucagon Inj) 1 mg UD PRN SQ 05/19/17 18:00 06/18/17 17:59 Atorvastatin Calcium (Lipitor Tab) 80 mg HS PO 05/19/17 21:00 06/18/17 20:59 05/23/17 21:12 80 MG Levothyroxine Sodium (Synthroid Tab) 175 mcg DAILYBB PO 05/20/17 06:00 06/19/17 05:59 05/24/17 05:37 175 MCG Losartan Potassium (coZAAR TAB) 25 mg DAILY PO 05/20/17 09:00 06/19/17 08:59 05/24/17 08:59 25 MG Metoprolol Tartrate (Lopressor Tab) 12.5 mg BID PO 05/19/17 21:00 06/18/17 20:59 05/24/17 08:58 12.5 MG Pantoprazole Sodium (Protonix Tab) 40 mg QAM PO 05/20/17 09:00 06/19/17 08:59 05/24/17 09:00 40 MG Calcium Carbonate (Tums Chew Tab) 500 mg DAILY PO 05/20/17 09:00 06/19/17 08:59 05/24/17 08:57 500 MG Cholecalciferol (Vitamin D Tab) 2,000 inter.unit QAM PO 05/20/17 09:00 06/19/17 08:59 05/24/17 08:58 2,000 INTER.UNIT Oxycodone/ Acetaminophen (Percocet 5-325mg Tab) 1 tab Q4H PRN PO 05/19/17 22:00 06/02/17 21:59 Senna (Senokot Tab) 17.2 mg HS PO 05/20/17 21:00 06/19/17 20:59 05/20/17 21:00 17.2 MG Docusate Sodium (coLACE CAP) 100 mg BID PO 05/20/17 21:00 06/19/17 20:59 05/23/17 21:12 100 MG Miscellaneous Information (Consult Glycemic Management Pharmacy) 1 ea UD PRN N/A 05/21/17 17:51 06/20/17 17:50 Ceftriaxone Sodium 2000 mg/ Dextrose 70 ml @ 100 mls/hr Q24H IV 05/22/17 16:00 07/03/17 15:59 05/24/17 16:37 100 MLS/HR Heparin Sodium (Porcine) (Heparin Sq 5000 Unit/0.5ml) 5,000 unit Q12 SQ 05/23/17 09:00 06/22/17 08:59 05/24/17 09:08 5,000 UNIT Clopidogrel Bisulfate (plAVix TAB) 75 mg QAM PO 05/23/17 08:00 06/22/17 07:59 05/24/17 08:59 75 MG Aspirin (Ecotrin Tab) 81 mg QAM PO 05/23/17 09:00 06/22/17 08:59 05/24/17 08:59 81 MG Insulin Aspart (novoLOG ASPART) SLIDING SCALE If C... AC NV 05/24/17 12:00 06/23/17 11:59 05/24/17 19:33 43 UNITS Insulin Glargine (Lantus Solostar Pen) 35 units QPM NV 05/24/17 21:00 06/23/17 20:59 Insulin Glargine (Lantus Solostar Pen) 10 units QAM NV 05/25/17 09:00 06/24/17 08:59 Objective Vital Signs Date Time Temp Pulse Resp B/P (MAP) Pulse Ox O2 Delivery O2 Flow Rate FiO2 05/24/17 16:08 36.9 78 18 127/75 (92) 97 Room Air 05/24/17 08:03 36.6 93 18 152/73 (99) 98 Room Air 05/24/17 07:45 Room Air 05/23/17 23:15 37.0 86 17 158/70 (99) 98 Room Air 05/23/17 21:08 79 116/69 (85) 05/23/17 19:45 Room Air Physical Exam General Appearance: WD/WN, no apparent distress Eyes: normal inspection Neck: supple, no adenopathy, thyroid normal Respiratory/Chest: chest non-tender, lungs clear, normal breath sounds Cardiovascular: regular rate, rhythm, no edema, no gallop Abdomen: normal bowel sounds, non tender, soft Extremities: normal inspection Skin: normal color Comments: EXCEPT FOR LEFT FOOT WITH WOUND VAC ON WOUND NEAR 5TH METATARSAL Laboratory Results Last 24 Hours Test 05/23/17 17:05 05/23/17 21:02 05/23/17 23:21 05/24/17 00:02 Bedside Glucose 181 mg/dl 157 mg/dl 72 mg/dl 80 mg/dl Test 05/24/17 07:12 05/24/17 08:00 05/24/17 12:14 White Blood Count 5.90 K/uL Red Blood Count 4.31 M/uL Hemoglobin 12.6 g/dL Hematocrit 37.6 % Mean Corpuscular Volume 87.2 fL Mean Corpuscular Hemoglobin 29.2 pg Mean Corpuscular Hemoglobin Concent 33.5 g/dl Platelet Count 373 K/uL Mean Platelet Volume 9.7 fL Neutrophils (%) (Auto) 58.8 % Lymphocytes (%) (Auto) 24.4 % Monocytes (%) (Auto) 11.4 % Eosinophils (%) (Auto) 4.4 % Basophils (%) (Auto) 0.7 % Neutrophils # (Auto) 3.47 K/uL Lymphocytes # (Auto) 1.44 K/uL Monocytes # (Auto) 0.67 K/uL Eosinophils # (Auto) 0.26 K/uL Basophils # (Auto) 0.04 K/uL RDW Standard Deviation 40.3 fL RDW Coefficient of Variation 12.6 % Immature Granulocyte % (Auto) 0.3 % Immature Granulocyte # (Auto) 0.02 K/uL Sodium Level 136 mmol/L Potassium Level 4.4 mmol/L Chloride Level 100 mmol/L Carbon Dioxide Level 32 mmol/L Anion Gap 4.0 mmol/L Blood Urea Nitrogen 17 mg/dl Creatinine 1.00 mg/dl Est Creatinine Clear Calc Drug Dose 83.1 ml/min Estimated GFR () 94.4 Estimated GFR (Non- 81.4 BUN/Creatinine Ratio 16.5 Random Glucose 193 mg/dl Calcium Level 10.1 mg/dl Bedside Glucose 197 mg/dl 330 mg/dl Assessment and Plan 62 y/o M who was a direct admit from Dr. Eddy for recurrent osteomyelitis that has failed outpt management Recurrent osteo: L 5th metatarsa on wound vacl preliminary shows MSSA MRI as noted Switched to ceftriaxone today. (day 5 of antibiotic) Pt was active with Dr. Soto, Dr. Ennis, Dr. Eddy--all have been consulted No leukocytosis or fevers Patient had left foot revision and wound debridement ID is on board. Discharge planning initiated, likely discharged on Monday after 48 hours on wound vac. 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 DM: A1c 11.2 Manages at home with SSI and lantus 35units HS Cont full lantus postop. glycemic control on board and diabetes education as hba1c was 11. CAD, PAD with iliac stents: Patient had CABG x1 to RCA and Aortic bioprosthetic valve 10/29/2015 at [facility] [place]. aspirin/plavix Last dose was 05/19 will restart today ASA and plavix. Continue other home meds Hypothyroid: continue home meds DVT proph: Heprain sub 5,000 q12h cont. SCDs Other: Full code, although does state that he would not want a feeding tube or prolonged mechanical life support. "That isn't real living". Continued [facility] stay due to: multiple IV medications needed, other ( Uncontrolled Blood sugars, with osteo and recent amputation requiring IV antibiotics.) Discharge planning: home
[2017-05-24] MEDS ORDERED: INSULIN REGULAR 10 UNITS in SYRINGE 9.9 ML IV ONE (19:00)
[2017-05-24] MEDS: SENNA 8.6 MG TAB PO SCH (21:00)
[2017-05-24] MEDS: ATORVASTATIN 40 MG TAB PO SCH (21:31)
[2017-05-24 21:32] VITALS: BP 115/71; PULSE 78
[2017-05-24] MEDS: INSULIN GLARGINE SOLOSTAR 100 UNITS/ML 3 ML PEN SC SCH (21:42)
[2017-05-24 22:57] VITALS: BP 116/67; PULSE 77; TEMP 37; O2SAT 97
[2017-05-25] MEDS: LEVOTHYROXINE 175 MCG TAB PO SCH (05:31)
[2017-05-25 08:06] LABS: HEMATOCRIT 41.5 % (42-52); MEAN CELL VOLUME 89.4 fL (80-100); MEAN CORPUSCULAR HEMOGLOBIN 28.4 pg (25-34); MEAN CORPUSCULAR HGB CONC 31.8 g/dl (32-36); MEAN PLATELET VOLUME 9.9 fL (7.4-10.4); PLATELET COUNT 420 K/uL (130-400); RED BLOOD COUNT 4.64 M/uL (4.7-6.1); WHITE BLOOD COUNT 10.74 K/uL (4.8-10.8)
[2017-05-25 08:24] VITALS: BP 156/81; PULSE 88; TEMP 37; O2SAT 95
[2017-05-25] MEDS ORDERED: CLOPIDOGREL BISULFATE 75 MG TAB PO SCH (09:00)
[2017-05-25] MEDS ORDERED: ASPIRIN 81 MG ECTAB PO SCH (09:00)
[2017-05-25] MEDS: CALCIUM CARBONATE 500 MG CHEWABLE PO SCH (09:21)
[2017-05-25] MEDS: CLOPIDOGREL BISULFATE 75 MG TAB PO SCH (09:22)
[2017-05-25] MEDS: CHOLECALCIFEROL 1000 INTER.UNIT TAB PO SCH (09:22)
[2017-05-25] MEDS: DOCUSATE SODIUM 100 MG CAP PO SCH ×2 (09:23→20:45)
[2017-05-25] MEDS: METOPROLOL TARTRATE 25 MG TAB PO SCH ×2 (09:24→20:45)
[2017-05-25] MEDS: ASPIRIN 81 MG ECTAB PO SCH (09:24)
[2017-05-25] MEDS: PANTOprazole SOD 40 MG TAB PO SCH (09:25)
[2017-05-25] MEDS: LOSARTAN POTASSIUM 25 MG TAB PO SCH (09:25)
[2017-05-25] MEDS: INSULIN ASPART 100 UNITS/ML 3 ML PEN SC SCH ×3 (09:37→19:05)
[2017-05-25] MEDS: INSULIN GLARGINE SOLOSTAR 100 UNITS/ML 3 ML PEN SC SCH ×2 (09:38→20:41)
[2017-05-25] MEDS: HEPARIN SOD 5000 UNIT/0.5 ML CARP SQ SCH ×2 (09:38→20:42)
--- NOTE | 2017-05-25 09:38 | Orthopedic Progress Note ---
Orthopedic Progress Note Date of Service May 25, 2017. Subjective Post OP Day: 5 Reports: feeling well, Denies: complaints, chest pain, SOB, nausea / vomiting, light headedness, calf pain Objective Date Time Temp Pulse Resp B/P (MAP) Pulse Ox O2 Delivery O2 Flow Rate FiO2 05/25/17 08:24 37.0 88 16 156/81 (106) 95 Room Air 05/24/17 23:45 Room Air 05/24/17 22:57 37.0 77 18 116/67 (83) 97 Room Air 05/24/17 21:32 78 115/71 (86) 05/24/17 16:08 36.9 78 18 127/75 (92) 97 Room Air 05/24/17 15:40 Room Air Laboratory Results 24 Hours: Test 05/25/17 06:58 Hematocrit 41.5 % Hemoglobin 13.2 g/dL Assessment & Plan Assessment: POD 5 - s/p Left fifth metatarsal revision amputation and debridement Plan: NWB on Left LE Continue OOB Tolerating regular diet. On heparin for DVT prophylaxis per primary team Continue IV antibiotics - will need skilled nursing IV antibiotics per ID May transport with wheelchair or knee scooter. Continue wound vac Plan for discharge to home tomorrow after wound vac change Will need PICC placement- discussed with nursing. Will discuss findings with Dr. Soto and continue to follow during his hospital stay. Appointment made for outpatient follow up next Wed with Dr. Soto. Will try to coordinate wound vac change with wound nurse and ortho tomorrow as well as outpatient follow ups. Discharge Planning Discharge Planning: home with IV medication
--- NOTE | 2017-05-25 09:39 | Consultant Recommendations ---
Supervisor Force Adjustment Recommendations Date of Service May 25, 2017. Supervisor Force Adjustment Recommendations NWB LLE with assistance of a walker or knee scooter Wear post op shoe when out of bed. elevate left foot as needed for pain/swelling Okay for range of motion ankle as tolerated/able. Follow up with Dr. Soto at [facility] on 06/02/17 at 8:30 a.m. Please call [phone] with any questions or concerns or need to reschedule appointment.
[2017-05-25 11:27] VITALS: BP 121/69; PULSE 92; TEMP 36.6; O2SAT 99
[2017-05-25 14:31] VITALS: BMI 28.3
[2017-05-25 15:11] VITALS: BP 131/82; PULSE 78; TEMP 36.8; O2SAT 98
[2017-05-25] MEDS: CEFTRIAXONE SOD INJ 2,000 MG in DEXTROSE 5% 50ML 50 ML IV SCH (15:48)
--- NOTE | 2017-05-25 18:30 | Progress Note ---
Subjective Date of Service: May 25, 2017. Subjective Pt evaluation today including: conversation w/ patient, physical exam, chart review, lab review Patient is here for left foot osteomyelitis. On IV antibiotics. Patient reports feeling well. No complaints. Problem List Medical Problems: (1) Abdominal discomfort, epigastric Status: Acute (2) Abscess of great toe, right Status: Acute (3) Cellulitis of right foot Status: Acute (4) Fall Status: Acute (5) Hypoglycemia due to type 2 diabetes mellitus Status: Acute (6) Injury of right hip Status: Acute Review of Systems All Other Systems: Reviewed and Negative Medications Medications (Trade) Dose Ordered Sig/Malu Route Start Time Stop Time Status Last Admin Dose Admin Insulin Glargine (Lantus Solostar Pen) 35 units QPM SC 05/24/17 21:00 06/23/17 20:59 05/24/17 21:42 35 UNITS Insulin Glargine (Lantus Solostar Pen) 10 units QAM SC 05/25/17 09:00 06/24/17 08:59 05/25/17 09:38 10 UNITS Insulin Human Regular 10 units/ Syringe 10 ml @ 30 mls/min TODAY@1900 ONCE IV 05/24/17 19:00 05/24/17 19:01 DC 05/24/17 19:32 30 MLS/MIN Objective Vital Signs Date Time Temp Pulse Resp B/P (MAP) Pulse Ox O2 Delivery O2 Flow Rate FiO2 05/25/17 15:25 Room Air 05/25/17 15:11 36.8 78 18 131/82 (98) 98 Room Air 05/25/17 11:27 36.6 92 16 121/69 (86) 99 Room Air 05/25/17 08:24 37.0 88 16 156/81 (106) 95 Room Air 05/25/17 08:15 Room Air 05/24/17 23:45 Room Air 05/24/17 22:57 37.0 77 18 116/67 (83) 97 Room Air 05/24/17 21:32 78 115/71 (86) Physical Exam General Appearance: WD/WN, no apparent distress ENT: normal ENT inspection Neck: supple, no adenopathy, thyroid normal Respiratory/Chest: chest non-tender, lungs clear, normal breath sounds Cardiovascular: regular rate, rhythm, no edema, no gallop Abdomen: normal bowel sounds, non tender, soft Skin: + pertinent finding (LEFT FOOT WITH WOUND VAC ON WOUND NEAR 5TH METATARSAL) Lymphatic: no adenopathy Laboratory Results Last 24 Hours Test 05/24/17 21:10 05/24/17 23:39 05/25/17 06:58 05/25/17 08:23 Bedside Glucose 316 mg/dl 82 mg/dl 253 mg/dl White Blood Count 10.74 K/uL Red Blood Count 4.64 M/uL Hemoglobin 13.2 g/dL Hematocrit 41.5 % Mean Corpuscular Volume 89.4 fL Mean Corpuscular Hemoglobin 28.4 pg Mean Corpuscular Hemoglobin Concent 31.8 g/dl RDW Standard Deviation 40.5 fL RDW Coefficient of Variation 12.6 % Platelet Count 420 K/uL Mean Platelet Volume 9.9 fL Test 05/25/17 11:49 Bedside Glucose 267 mg/dl Assessment and Plan 62 y/o M who was a direct admit from Dr. Eddy for recurrent osteomyelitis that has failed outpt management Recurrent osteo: L 5th metatarsa on wound vacl preliminary shows MSSA MRI as noted Switched to ceftriaxone today. (day 6 of antibiotic) Pt was active with Dr. Soto, Dr. Ennis, Dr. Eddy--all have been consulted No leukocytosis or fevers Patient had left foot revision and wound debridement ID is on board. PICC Line ordered, consent form obtained Discharge planning initiated, likely discharged on Monday after 48 hours on wound vac. 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 DM: A1c 11.2 Manages at home with SSI and lantus 35units HS Cont full lantus postop. glycemic control on board and diabetes education as hba1c was 11. CAD, PAD with iliac stents: Patient had CABG x1 to RCA and Aortic bioprosthetic valve 10/29/2015 at [facility] [place]. On aspirin/plavix Continue other home meds Hypothyroid: continue home meds DVT proph: Heprain sub 5,000 q12h cont. SCDs Other: Full code, although does state that he would not want a feeding tube or prolonged mechanical life support. "That isn't real living". Continued [facility] stay due to: multiple IV medications needed, other ( Uncontrolled Blood sugars, with osteo and recent amputation requiring IV antibiotics.) Discharge planning: home
[2017-05-25] MEDS: ATORVASTATIN 40 MG TAB PO SCH (20:43)
[2017-05-25] MEDS: SENNA 8.6 MG TAB PO SCH (20:44)
[2017-05-25 22:58] VITALS: BP 144/67; PULSE 73; TEMP 36.6; O2SAT 97
[2017-05-26] MEDS: LEVOTHYROXINE 175 MCG TAB PO SCH (05:43)
[2017-05-26 07:16] VITALS: BP 113/68; PULSE 84; TEMP 36.7; O2SAT 97
[2017-05-26] MEDS: CALCIUM CARBONATE 500 MG CHEWABLE PO SCH (07:47)
[2017-05-26] MEDS: CHOLECALCIFEROL 1000 INTER.UNIT TAB PO SCH (07:47)
[2017-05-26] MEDS: DOCUSATE SODIUM 100 MG CAP PO SCH ×3 (07:48→09:00)
[2017-05-26] MEDS: PANTOprazole SOD 40 MG TAB PO SCH (07:48)
[2017-05-26] MEDS: ASPIRIN 81 MG ECTAB PO SCH (07:48)
[2017-05-26] MEDS: CLOPIDOGREL BISULFATE 75 MG TAB PO SCH (07:48)
[2017-05-26] MEDS: METOPROLOL TARTRATE 25 MG TAB PO SCH (07:48)
[2017-05-26] MEDS: LOSARTAN POTASSIUM 25 MG TAB PO SCH (07:49)
[2017-05-26] MEDS: HEPARIN SOD 5000 UNIT/0.5 ML CARP SQ SCH (08:50)
[2017-05-26] MEDS: INSULIN GLARGINE SOLOSTAR 100 UNITS/ML 3 ML PEN SC SCH (08:51)
[2017-05-26] MEDS: INSULIN ASPART 100 UNITS/ML 3 ML PEN SC SCH ×3 (08:51→18:14)
--- NOTE | 2017-05-26 09:27 | Wound Progress Note: Inpatient ---
Wound Progress Note Date of Service May 25, 2017. Subjective Pt evaluation today including: conversation w/ patient, physical exam, chart review Patient seen today for reevaluation of postoperative wound to the left foot. Patient denies any increased pain swelling or redness of the foot. Patient has no systemic complaints at this time. Objective Vital Signs Date Time Temp Pulse Resp B/P (MAP) Pulse Ox O2 Delivery O2 Flow Rate FiO2 05/26/17 07:50 Room Air 05/26/17 07:16 36.7 84 17 113/68 (83) 97 Room Air 05/25/17 23:45 Room Air 05/25/17 22:58 36.6 73 18 144/67 (92) 97 Room Air 05/25/17 15:25 Room Air 05/25/17 15:11 36.8 78 18 131/82 (98) 98 Room Air 05/25/17 11:27 36.6 92 16 121/69 (86) 99 Room Air Physical Exam Notes: Patient is lying in a hospital bed in no acute distress. Vital signs were reviewed and found the unremarkable patient is afebrile. The operative site today measures 3.2 x 3.4 x 0.7 cm. This represents an overall volumetric reduction of 56%. Granulation tissue is evolving nicely in the base. Minimal slough is noted. Decreased marginal maceration is also noted. No active drainage or odor noted. No pain to palpation or periwound erythema present. Laboratory Results Last 24 Hours Test 05/25/17 11:49 05/25/17 17:38 05/25/17 20:12 05/25/17 23:37 Bedside Glucose 267 mg/dl 98 mg/dl 145 mg/dl 61 mg/dl Test 05/26/17 00:32 05/26/17 07:57 Bedside Glucose 81 mg/dl 148 mg/dl Assessment and Plan Assessment: Postoperative wound left foot Plan: At this time no debridement is indicated. It is my recommendations the patient had a irrigating wound VAC applied 10 minutes of irrigation with normal saline followed by 2 hours of VAC therapy. Black foam at the base. Upon discharge from the hospital the patient be converted to a routine home VAC black foam 125 mm of negative pressure wound VAC change 3 times weekly. Patient will continue to be monitored during his hospitalization and followed up in the outpatient clinic upon discharge.
[2017-05-26 13:03] VITALS: Ht 172.7 cm; Wt 84.5 kg
--- NOTE | 2017-05-26 13:49 | Progress Note ---
Subjective Date of Service: May 26, 2017. Subjective Please disregard note as patient has discharge summary for today. Problem List Medical Problems: (1) Abdominal discomfort, epigastric Status: Acute (2) Abscess of great toe, right Status: Acute (3) Cellulitis of right foot Status: Acute (4) Fall Status: Acute (5) Hypoglycemia due to type 2 diabetes mellitus Status: Acute (6) Injury of right hip Status: Acute Objective Vital Signs Date Time Temp Pulse Resp B/P (MAP) Pulse Ox O2 Delivery O2 Flow Rate FiO2 05/26/17 07:50 Room Air 05/26/17 07:16 36.7 84 17 113/68 (83) 97 Room Air 05/25/17 23:45 Room Air 05/25/17 22:58 36.6 73 18 144/67 (92) 97 Room Air 05/25/17 15:25 Room Air 05/25/17 15:11 36.8 78 18 131/82 (98) 98 Room Air Laboratory Results Last 24 Hours Test 05/25/17 17:38 05/25/17 20:12 05/25/17 23:37 05/26/17 00:14 Bedside Glucose 98 mg/dl 145 mg/dl 61 mg/dl 67 mg/dl Test 05/26/17 00:32 05/26/17 07:57 Bedside Glucose 81 mg/dl 148 mg/dl Assessment and Plan 62 y/o M who was a direct admit from Dr. Eddy for recurrent osteomyelitis that has failed outpt management Recurrent osteo: L 5th metatarsa on wound vacl preliminary shows MSSA MRI as noted Switched to ceftriaxone today. (day 6 of antibiotic) Pt was active with Dr. Soto, Dr. Ennis, Dr. Eddy--all have been consulted No leukocytosis or fevers Patient had left foot revision and wound debridement ID is on board. PICC Line ordered, consent form obtained Discharge planning initiated, likely discharged on Monday after 48 hours on wound vac. 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 DM: A1c 11.2 Manages at home with SSI and lantus 35units HS Cont full lantus postop. glycemic control on board and diabetes education as hba1c was 11. CAD, PAD with iliac stents: Patient had CABG x1 to RCA and [place]oprost[place] [facility] [place] On aspirin/plavix Continue other home meds Hypothyroid: continue home meds DVT proph: Heprain sub 5,000 q12h cont. SCDs Other: Full code, although does state that he would not want a feeding tube or prolonged mechanical life support. "That isn't real living". Continued [facility] stay due to: multiple IV medications needed, other ( Uncontrolled Blood sugars, with osteo and recent amputation requiring IV antibiotics.) Discharge planning: home
--- NOTE | 2017-05-26 14:11 | Orthopedic Progress Note ---
Orthopedic Progress Note Date of Service May 26, 2017. Subjective Post OP Day: 6 Reports: feeling well, pain controlled w PO medications, Denies: complaints, chest pain, SOB, nausea / vomiting, light headedness, calf pain Objective calves soft nontender, N/V intact, capillary refill less than 2 sec., A&O x3, toes mobile Wound vac functioning, removed, wound cleansed and scraped with curette until bleeding tissue, new wound vac applied by wound care nurses. Date Time Temp Pulse Resp B/P (MAP) Pulse Ox O2 Delivery O2 Flow Rate FiO2 05/26/17 07:50 Room Air 05/26/17 07:16 36.7 84 17 113/68 (83) 97 Room Air 05/25/17 23:45 Room Air 05/25/17 22:58 36.6 73 18 144/67 (92) 97 Room Air 05/25/17 15:25 Room Air 05/25/17 15:11 36.8 78 18 131/82 (98) 98 Room Air Assessment & Plan Assessment: POD 6 - s/p Left fifth metatarsal revision amputation and debridement Plan: NWB on Left LE Continue OOB Tolerating regular diet. On heparin for DVT prophylaxis per primary team PICC placed yesterday. May transport with wheelchair or knee scooter (script provided in chart) Continue wound vac - applied by wound care nurse today Dr. Soto present for visit today Okay from ortho standpoint for discharge to home today. Appointment made for outpatient follow up next Mon with Dr. Soto. Discharge Planning Discharge Planning: home with IV medication
--- NOTE | 2017-05-26 15:03 | Discharge Instructions ---
Discharge Instructions Date of Service May 26, 2017. Admission Reason for Admission: Recurring Ostemyelitis - Left Lateral Foot Discharge Discharge Diagnosis / Problem: sp Left fifth metatarsal revision amputation and debridement Discharge Goals Goal(s): Decrease discomfort, Improve function, Increase independence Activity Recommendations Activity Limitations: resume your previous activity Weightbearing Status: Left non-weightbearing . Current Hospital Diet Patient's current hospital diet: Diabetes Type 2 Diet, AHA Diet (Heart Healthy) Discharge Diet Recommended Diet: AHA Diet (Heart Healthy), Diabetes Type 2 Diet Procedures Procedures Performed: Left foot revision amputation and wound debridement Pending Studies Studies pending at discharge: no Laboratory Results Hemoglobin A1c Test 05/19/17 18:17 Range/Units Estimated Average Glucose 275 mg/dl Hemoglobin A1c 11.2 H 4.5-5.6 % Medical Emergencies . Who to Call and When: Medical Emergencies: If at any time you feel your situation is an emergency, please call 911 immediately. . Non-Emergent Contact Non-Emergency issues call your: Primary Care Provider Call Non-Emergent contact if: temperature is above 101 . Past History Medical & Surgical History: (1) Osteomyelitis of left foot (2) Diabetic peripheral neuropathy associated with type 1 diabetes mellitus (3) Diabetic foot infection . "Provider Documentation" section prepared by Lui Ellis. . Executive Vice President Of Sales Recommendations Executive Vice President Of Sales Recommendations: NWB LLE with assistance of a walker or knee scooter Wear post op shoe when out of bed. elevate left foot as needed for pain/swelling Okay for range of motion ankle as tolerated/able. Follow up with Dr. Soto at [facility] on 06/02/17 at 8:30 a.m. Please call [phone] with any questions or concerns or need to reschedule appointment. VTE Core Measure Inpt VTE Proph given/why not?: Unfractionated heparin SQ
--- NOTE | 2017-05-26 15:09 | Infectious Disease Progress Nt ---
Progress Note Date of Service May 26, 2017. Subjective Pt evaluation today including: conversation w/ patient, physical exam, chart review, lab review, review of studies, conversation w/ senior environmental consultant, review of inpatient medication list Patient offering no new complaints today. Pain controlled. Remains afebrile. All Other Systems: Reviewed and Negative Medications Current Inpatient Medications Medications (Trade) Dose Ordered Sig/Malu Route Start Time Stop Time Status Last Admin Dose Admin Acetaminophen (Tylenol Tab) 650 mg Q4H PRN PO 05/19/17 18:00 06/18/17 17:59 Magnesium Hydroxide (Milk Of Magnesia Susp) 30 ml Q6H PRN PO 05/19/17 18:00 06/18/17 17:59 Ondansetron HCl (Zofran Inj) 4 mg Q6H PRN IV 05/19/17 18:00 06/18/17 17:59 Glucose (Glucose 40% Gel) 15-30 GRAMS 15 GRAMS... UD PRN PO 05/19/17 18:00 06/18/17 17:59 Glucose (Glucose Chew Tab) 4-8 Tablets 4 Tabl... UD PRN PO 05/19/17 18:00 06/18/17 17:59 Dextrose (Dextrose 50% 50ML Syringe) 25-50ML OF 50% DW IV FOR... UD PRN IV 05/19/17 18:00 06/18/17 17:59 Glucagon (Glucagon Inj) 1 mg UD PRN SQ 05/19/17 18:00 06/18/17 17:59 Atorvastatin Calcium (Lipitor Tab) 80 mg HS PO 05/19/17 21:00 06/18/17 20:59 05/25/17 20:43 80 MG Levothyroxine Sodium (Synthroid Tab) 175 mcg DAILYBB PO 05/20/17 06:00 06/19/17 05:59 05/26/17 05:43 175 MCG Losartan Potassium (coZAAR TAB) 25 mg DAILY PO 05/20/17 09:00 06/19/17 08:59 05/26/17 07:49 25 MG Metoprolol Tartrate (Lopressor Tab) 12.5 mg BID PO 05/19/17 21:00 06/18/17 20:59 05/26/17 07:48 12.5 MG Pantoprazole Sodium (Protonix Tab) 40 mg QAM PO 05/20/17 09:00 06/19/17 08:59 05/26/17 07:48 40 MG Calcium Carbonate (Tums Chew Tab) 500 mg DAILY PO 05/20/17 09:00 06/19/17 08:59 05/26/17 07:47 500 MG Cholecalciferol (Vitamin D Tab) 2,000 inter.unit QAM PO 05/20/17 09:00 06/19/17 08:59 05/26/17 07:47 2,000 INTER.UNIT Oxycodone/ Acetaminophen (Percocet 5-325mg Tab) 1 tab Q4H PRN PO 05/19/17 22:00 06/02/17 21:59 Senna (Senokot Tab) 17.2 mg HS PO 05/20/17 21:00 06/19/17 20:59 05/25/17 20:44 17.2 MG Docusate Sodium (coLACE CAP) 100 mg BID PO 05/20/17 21:00 06/19/17 20:59 05/25/17 20:45 100 MG Miscellaneous Information (Consult Glycemic Management Pharmacy) 1 ea UD PRN N/A 05/21/17 17:51 06/20/17 17:50 Ceftriaxone Sodium 2000 mg/ Dextrose 70 ml @ 100 mls/hr Q24H IV 05/22/17 16:00 07/03/17 15:59 05/25/17 15:48 100 MLS/HR Heparin Sodium (Porcine) (Heparin Sq 5000 Unit/0.5ml) 5,000 unit Q12 SQ 05/23/17 09:00 06/22/17 08:59 05/26/17 08:50 5,000 UNIT Clopidogrel Bisulfate (plAVix TAB) 75 mg QAM PO 05/23/17 08:00 06/22/17 07:59 05/26/17 07:48 75 MG Aspirin (Ecotrin Tab) 81 mg QAM PO 05/23/17 09:00 06/22/17 08:59 05/26/17 07:48 81 MG Insulin Aspart (novoLOG ASPART) SLIDING SCALE If C... AC SC 05/24/17 12:00 06/23/17 11:59 05/26/17 12:53 24 UNITS Insulin Glargine (Lantus Solostar Pen) 10 units QAM SC 05/25/17 09:00 06/24/17 08:59 05/26/17 08:51 10 UNITS Heparin Sodium (Porcine) (Heparin 10 Unit/ ml 5 ml Flush) 5 ml PRN PRN FLUSH 05/25/17 18:15 06/24/17 18:14 Insulin Glargine (Lantus Solostar Pen) 30 units QPM SC 05/26/17 21:00 06/25/17 20:59 Objective Vital Signs Date Time Temp Pulse Resp B/P (MAP) Pulse Ox O2 Delivery O2 Flow Rate FiO2 05/26/17 07:50 Room Air 05/26/17 07:16 36.7 84 17 113/68 (83) 97 Room Air 05/25/17 23:45 Room Air 05/25/17 22:58 36.6 73 18 144/67 (92) 97 Room Air 05/25/17 15:25 Room Air 05/25/17 15:11 36.8 78 18 131/82 (98) 98 Room Air Physical Exam General Appearance: WD/WN, no apparent distress Eyes: normal inspection, sclerae normal ENT: normal ENT inspection, pharynx normal Neck: supple, no adenopathy, thyroid normal, trachea midline Respiratory/Chest: chest non-tender, lungs clear, normal breath sounds, no respiratory distress Cardiovascular: regular rate, rhythm, no gallop, no murmur Abdomen: normal bowel sounds, non tender, soft, no organomegaly Extremities: non-tender, no calf tenderness Neurologic/Psychiatric: alert, oriented x 3 Skin: normal color, no rash, + pertinent finding (dressing intact left foot) Lymphatic: no adenopathy Laboratory Results Last 24 Hours Test 05/25/17 17:38 05/25/17 20:12 05/25/17 23:37 05/26/17 00:14 Bedside Glucose 98 mg/dl 145 mg/dl 61 mg/dl 67 mg/dl Test 05/26/17 00:32 05/26/17 07:57 05/26/17 11:56 Bedside Glucose 81 mg/dl 148 mg/dl 224 mg/dl Assessment and Plan 62-year-old diabetic male with peripheral neuropathy now with recurrent osteomyelitis of the left foot status post revision surgery with partial amputation, with operative cultures growing MSSA. Patient on IV ceftriaxone in anticipation of prolonged (6-8 weeks) outpatient IV therapy.
[2017-05-26] MEDS ORDERED: CEFT1INJ57 IV (15:21)
[2017-05-26] MEDS: CEFTRIAXONE SOD INJ 2,000 MG in DEXTROSE 5% 50ML 50 ML IV SCH (15:46)
[2017-05-26 15:51] VITALS: BP 121/63; PULSE 84; TEMP 36.7; O2SAT 100
[2017-05-26 16:05] VITALS: BP 121/63; PULSE 84; TEMP 36.7; O2SAT 100
[2017-05-26] MEDS ORDERED: INSULIN GLARGINE SOLOSTAR 100 UNITS/ML 3 ML PEN SC SCH (21:00)
--- NOTE | 2017-05-26 22:45 | Discharge Summary ---
Discharge Summary Date of Service May 26, 2017. Discharge Summary Admission Date: May 19, 2017 at 16:39 Discharge Date: May 26, 2017 Discharge Disposition: Home with services Principal Diagnosis: Left 5th metatrsal osteomyelitis (recurrent) Immunizations: History of Tetanus Vaccine?: Unknown History of Pneumococcal: Unknown History of Hepatitis B Vaccine: Unknown Medication Reconciliation New Medications: Ceftriaxone Sod (Rocephin) 1 Gm Inj 2 GM IV Q24H for 35 Days, #35 VIAL Continued Medications: Alendronate Sodium (Alendronate Sodium) 70 Mg Tab 70 MG PO WK SUNDAYS Aspirin (Aspirin Ec) 81 Mg Tab 81 MG PO QAM Atorvastatin (Lipitor) 80 Mg Tab 80 MG PO HS, TAB Calcium Carbonate (Calcium) 600 Mg Tab 600 MG PO DAILY Cholecalciferol (Vitamin D3) 2,000 Unit Cap 1 CAP PO QAM, 3 Refills Clopidogrel (Plavix) 75 Mg Tab 75 MG PO QAM, TAB Insulin Aspart (Novolog Penfill) 100 Unit/Ml Inj 5-10 UNITS SQ ACHS SLIDING SCALE Insulin Glargine (Lantus) 100 Unit/Ml Inj 35 UNITS SC QPM, VIAL Levothyroxine Sodium (Levothyroxine Sodium) 175 Mcg Tab 175 MCG PO DAILY, 3 Refills Losartan Potassium (Cozaar) 25 Mg Tab 1 TAB PO DAILY for 30 Days, #30 TAB 5 Refills Metoprolol Tartrate (Lopressor) 25 Mg Tab 12.5 MG PO BID Pantoprazole (Protonix) 40 Mg Tab 40 MG PO QAM Discharge Exam Review of Systems: Constitutional: No fever, No chills ENT: No hearing loss, No unusual epistaxis, No sore throat, No tinnitus Respiratory: No cough, No shortness of breath, No dyspnea on exertion, No dyspnea at rest Cardiovascular: No chest pain, No orthopnea, No PND, No claudication Abdomen: No pain, No nausea, No vomiting Neurologic: No memory loss, No paralysis Endocrine: No fatigue, No excessive thirst Physical Exam: General Appearance: WD/WN, no apparent distress Eyes: normal inspection ENT: normal ENT inspection Neck: supple, no adenopathy, thyroid normal Respiratory/Chest: chest non-tender, lungs clear, normal breath sounds Cardiovascular: regular rate, rhythm, no edema, no gallop Abdomen / GI: normal bowel sounds, non tender, soft Extremities: normal inspection (except for wound vac near 5th metatarsal) Hospital Course 62 y/o M who was a direct admit from Dr. Eddy for recurrent left 5th metatarsal osteomyelitis that has failed outpt management. Recurrent osteo: L 5th metatarsa on wound vacl preliminary shows MSSA MRI as noted Switched to ceftriaxone today. (day 6 of antibiotic) Pt was active with Dr. Soto, Dr. Ennis, Dr. Eddy--all have been consulted No leukocytosis or fevers Patient had left foot revision and wound debridement ID is on board. PICC Line ordered, consent form obtained Patient will continue with antbiotic as an outpatient with home health services. DM: A1c 11.2 Manages at home with SSI and lantus 35units HS Cont full lantus postop. glycemic control on board and diabetes education as hba1c was 11. CAD, PAD with iliac stents: Patient had CABG x1 to RCA and Aortic bioprosthetic valve 10/29/2015 at [facility]. On aspirin/plavix Continue other home meds Hypothyroid: continue home meds DVT proph: Heprain sub 5,000 q12h cont. SCDs Other: Full code, although does state that he would not want a feeding tube or prolonged mechanical life support. "That isn't real living". Total Time Spent: Greater than 30 minutes This includes examination of the patient, discharge planning, medication reconciliation, and communication with other providers. Discharge Instructions Please refer to the electronic Patient Visit Report (Discharge Instructions) for additional information.
[2017-05-27] MEDS ORDERED: INSULIN ASPART 100 UNITS/ML 3 ML PEN SC SCH ×2 (08:30→12:30)
[2017-05-27] MEDS ORDERED: INSULIN GLARGINE SOLOSTAR 100 UNITS/ML 3 ML PEN SC SCH (09:00)
== END 2017-05-26 19:23 | disposition home health service (06) | DRG 617 ==
LOC: C.MSN 16:39
PROVIDERS: ADMIT Family Medicine; ATTEND Family Medicine
PROC: 0JBR0ZX Excision of Left Foot Subcutaneous Tissue and Fascia, Open Approach, Diagnostic (ICD-10-PCS; 2017-05-16)
PROC: 0Y6N0Z8 Detachment at Left Foot, Complete 5th Ray, Open Approach (ICD-10-PCS; principal; 2017-05-20 07:30)
PROC: 0KBW0ZZ Excision of Left Foot Muscle, Open Approach (ICD-10-PCS; principal; 2017-05-20 07:30)
PROC: 02HV33Z Insertion of Infusion Device into Superior Vena Cava, Percutaneous Approach (ICD-10-PCS; 2017-05-25)
DX: E11.69 Type 2 diabetes mellitus with other specified complication (principal); M86.9 Osteomyelitis, unspecified; L97.429 Non-pressure chronic ulcer of left heel and midfoot with unspecified severity; B95.61 Methicillin susceptible Staphylococcus aureus infection as the cause of diseases classified elsewhere; E11.621 Type 2 diabetes mellitus with foot ulcer; E11.40 Type 2 diabetes mellitus with diabetic neuropathy, unspecified; E11.21 Type 2 diabetes mellitus with diabetic nephropathy; E11.319 Type 2 diabetes mellitus with unspecified diabetic retinopathy without macular edema; E03.9 Hypothyroidism, unspecified; I25.10 Atherosclerotic heart disease of native coronary artery without angina pectoris; I25.2 Old myocardial infarction; I11.9 Hypertensive heart disease without heart failure; I73.9 Peripheral vascular disease, unspecified; E78.5 Hyperlipidemia, unspecified; Z51.81 Encounter for therapeutic drug level monitoring; Z79.899 Other long term (current) drug therapy; Z79.4 Long term (current) use of insulin; Z79.82 Long term (current) use of aspirin; Z89.422 Acquired absence of other left toe(s); Z95.1 Presence of aortocoronary bypass graft; Z95.2 Presence of prosthetic heart valve; Z87.891 Personal history of nicotine dependence; Z83.3 Family history of diabetes mellitus; Z82.5 Family history of asthma and other chronic lower respiratory diseases; Z82.0 Family history of epilepsy and other diseases of the nervous system; Z80.51 Family history of malignant neoplasm of kidney; Z80.1 Family history of malignant neoplasm of trachea, bronchus and lung; Z80.0 Family history of malignant neoplasm of digestive organs; L97.419 Non-pressure chronic ulcer of right heel and midfoot with unspecified severity; L84 Corns and callosities; E11.42 Type 2 diabetes mellitus with diabetic polyneuropathy; L89.892 Pressure ulcer of other site, stage 2; L89.899 Pressure ulcer of other site, unspecified stage; S91.204A Unspecified open wound of right lesser toe(s) with damage to nail, initial encounter; S90.122A Contusion of left lesser toe(s) without damage to nail, initial encounter; W22.8XXA Striking against or struck by other objects, initial encounter; E10.39 Type 1 diabetes mellitus with other diabetic ophthalmic complication; L97.529 Non-pressure chronic ulcer of other part of left foot with unspecified severity; E10.622 Type 1 diabetes mellitus with other skin ulcer

== ENCOUNTER → 2017-05-19 | Outpatient (CLI) | payer OTHER ==
[~2017-05-19] MED LIST changes: +GADAVIST IV PRN
--- NOTE | 2017-05-19 09:37 | DIAGNOSTIC IMAGING REPORT ---
MRI OF THE LEFT FOOT WITH AND WITHOUT CONTRAST CLINICAL HISTORY: Left lateral foot nonhealing wound. COMPARISON STUDY: MRI of the left foot April 28, 2016 and left foot radiographs May 06, 2016. TECHNIQUE: Utilizing a 1.5 Yaritza magnet and dedicated coil, multiplanar, multiecho imaging of the left foot was performed pre and postcontrast administration. Injection of 8.5 cc of Gadavist IV was uneventful. FINDINGS: Note is made of previous amputation of the left fifth metatarsal at the level the proximal shaft. A marker was placed on skin at site of wound. An associated skin defect is noted consistent with a wound. There is mild edema within the subjacent soft tissues. There is moderate edema within the base of the left fifth metatarsal with diminished T1 signal. This reflects osteomyelitis of the base of the left fifth metatarsal. This focus of signal abnormality measures 1.8 x 1.9 cm Alignment of the tarsometatarsal joints is anatomic. Note is made of mild marrow edema within the distal phalanx of the second toe. However, T1 signal is not significantly diminished. There is minimal marrow edema within the distal phalanx of the left third toe. No additional sites of marrow edema are present. There is no suspicious bony replacement. Old post traumatic deformity of the distal left tibia and fibula is noted. No abscess is identified within the left foot. IMPRESSION: 1. Findings consistent with osteomyelitis of the base of the left fifth metatarsal. Overlying wound with mild cellulitis. No abscess. 2. Status post post amputation of the left fifth metatarsal at the level of the proximal shaft. 3. Mild marrow edema within the distal phalanges of the left second and third toes with preserved T1 signal. The findings favor osteitis. Electronically signed by: Benji Oconnell M.D. 05/19/2017 9:36 AM Dictated Date/Time: 05/19/2017 9:24 AM
== END | disposition home or self-care (01) ==
LOC: C.MRI 07:49
PROVIDERS: ATTEND Physician Assistant
DX: L97.529 Non-pressure chronic ulcer of other part of left foot with unspecified severity (principal)

== ENCOUNTER → 2017-05-30 | Outpatient (CLI) | payer OTHER ==
[~2017-05-30] MED LIST changes: +CEFT1INJ57 IV; -CEPH500C PO; +NF1420 PO
[2017-05-30 12:07] LABS: HEMATOCRIT 38.4 % (42-52); MEAN CELL VOLUME 90.8 fL (80-100); MEAN CORPUSCULAR HEMOGLOBIN 28.4 pg (25-34); MEAN CORPUSCULAR HGB CONC 31.3 g/dl (32-36); MEAN PLATELET VOLUME 9.8 fL (7.4-10.4); PLATELET COUNT 439 K/uL (130-400); RED BLOOD COUNT 4.23 M/uL (4.7-6.1); WHITE BLOOD COUNT 8.69 K/uL (4.8-10.8)
[2017-05-30 12:20] LABS: ALT/SGPT 33 U/L (12-78); AST/SGOT 21 U/L (15-37); BLOOD UREA NITROGEN 11 mg/dl (7-18); CALCIUM 8.9 mg/dl (8.5-10.1); CARBON DIOXIDE 29 mmol/L (21-32); CHLORIDE 106 mmol/L (98-107); GLUCOSE 90 mg/dl (70-99); POTASSIUM 3.9 mmol/L (3.5-5.1); SODIUM 140 mmol/L (136-145)
[2017-05-30 12:24] LABS: ALB/GLOB RATIO 0.8 (0.9-2); ALKALINE PHOSPHATASE 131 U/L (45-117)
== END | disposition home or self-care (01) ==
LOC: C.LABSPEC 07:36
PROVIDERS: ATTEND Physical Medicine & Rehabilitation Sports Medicine
DX: M86.9 Osteomyelitis, unspecified (principal)

== ENCOUNTER → 2017-06-06 | Outpatient (CLI) | payer OTHER ==
[2017-06-06 14:14] LABS: HEMATOCRIT 36.3 % (42-52); MEAN CELL VOLUME 90.3 fL (80-100); MEAN CORPUSCULAR HEMOGLOBIN 28.9 pg (25-34); MEAN PLATELET VOLUME 10.1 fL (7.4-10.4); PLATELET COUNT 342 K/uL (130-400); RED BLOOD COUNT 4.02 M/uL (4.7-6.1); WHITE BLOOD COUNT 6.83 K/uL (4.8-10.8)
[2017-06-06 14:47] LABS: ALT/SGPT 23 U/L (12-78); AST/SGOT 17 U/L (15-37); BLOOD UREA NITROGEN 17 mg/dl (7-18); BUN/CREATININE RATIO 19.9 (10-20); CALCIUM 8.9 mg/dl (8.5-10.1); CARBON DIOXIDE 28 mmol/L (21-32); CHLORIDE 103 mmol/L (98-107); CREATININE 0.84 mg/dl (0.60-1.40); GLUCOSE 230 mg/dl (70-99); POTASSIUM 3.9 mmol/L (3.5-5.1); SODIUM 139 mmol/L (136-145)
[2017-06-06 14:49] LABS: ALB/GLOB RATIO 0.8 (0.9-2); ALKALINE PHOSPHATASE 123 U/L (45-117)
--- NOTE | 2017-06-12 07:07 | CODING QUERY NO DIAGNOSIS ---
TREATMENT RENDERED WITHOUT A DIAGNOSIS To promote full compliance with coding requirements relating to patient care, physician participation is requested in all cases of primary school teacher librarian uncertainty. Please assist us with providing a diagnosis/symptom for the test(s) below: A diagnosis/symptom was not documented on your Order. A valid diagnosis/symptom is required to bill all insurances. Please remember that we are unable to code a diagnosis of rule out, probable, possible, questionable, or suspected. Tests that require a diagnosis: * CBC W/O DIFF DIAGNOSIS: * CMP DIAGNOSIS: Provider Signature: Date: Thank you Ashia Mccollum [email or web address] Once completed, please kindly fax back to [phone] For questions please call [phone]
== END | disposition home or self-care (01) ==
LOC: C.LABSPEC 12:58
PROVIDERS: ATTEND Internal Medicine Infectious Disease
DX: Z01.89 Encounter for other specified special examinations (principal)

== ENCOUNTER → 2017-06-13 | Outpatient (CLI) | payer OTHER ==
[2017-06-13 17:42] LABS: HEMATOCRIT 35.5 % (42-52); MEAN CELL VOLUME 90.1 fL (80-100); MEAN CORPUSCULAR HEMOGLOBIN 28.4 pg (25-34); MEAN CORPUSCULAR HGB CONC 31.5 g/dl (32-36); MEAN PLATELET VOLUME 10.6 fL (7.4-10.4); PLATELET COUNT 213 K/uL (130-400); RED BLOOD COUNT 3.94 M/uL (4.7-6.1); WHITE BLOOD COUNT 5.25 K/uL (4.8-10.8)
[2017-06-13 19:01] LABS: ALKALINE PHOSPHATASE 110 U/L (45-117); ALT/SGPT 30 U/L (12-78); AST/SGOT 21 U/L (15-37); BLOOD UREA NITROGEN 16 mg/dl (7-18); CALCIUM 9.1 mg/dl (8.5-10.1); CARBON DIOXIDE 25 mmol/L (21-32); CHLORIDE 104 mmol/L (98-107); CREATININE 0.96 mg/dl (0.60-1.40); SODIUM 138 mmol/L (136-145)
[2017-06-13 19:02] LABS: GLUCOSE 387 mg/dl (70-99)
[2017-06-13 19:14] LABS: BETA-HYDROXYBUTYRATE 0.74 mg/dL (0.2-2.81)
== END | disposition home or self-care (01) ==
LOC: C.LABSPEC 12:00
PROVIDERS: ATTEND Internal Medicine Infectious Disease
DX: M86.9 Osteomyelitis, unspecified (principal)

== ENCOUNTER → 2017-06-20 | Outpatient (CLI) | payer OTHER ==
[2017-06-20 17:46] LABS: HEMATOCRIT 36.5 % (42-52); MEAN CELL VOLUME 89.7 fL (80-100); MEAN CORPUSCULAR HGB CONC 32.3 g/dl (32-36); MEAN PLATELET VOLUME 11.4 fL (7.4-10.4); PLATELET COUNT 210 K/uL (130-400); RED BLOOD COUNT 4.07 M/uL (4.7-6.1); WHITE BLOOD COUNT 6.08 K/uL (4.8-10.8)
[2017-06-20 17:58] LABS: ALT/SGPT 30 U/L (12-78); BLOOD UREA NITROGEN 11 mg/dl (7-18); BUN/CREATININE RATIO 11.6 (10-20); CALCIUM 8.9 mg/dl (8.5-10.1); CARBON DIOXIDE 25 mmol/L (21-32); CHLORIDE 105 mmol/L (98-107); CREATININE 0.92 mg/dl (0.60-1.40); GLUCOSE 262 mg/dl (70-99); POTASSIUM 4.3 mmol/L (3.5-5.1); SODIUM 138 mmol/L (136-145)
[2017-06-20 18:01] LABS: ALKALINE PHOSPHATASE 105 U/L (45-117); AST/SGOT 22 U/L (15-37)
== END | disposition home or self-care (01) ==
LOC: C.LABSPEC 11:19
PROVIDERS: ATTEND Internal Medicine Infectious Disease
DX: M86.9 Osteomyelitis, unspecified (principal)

== ENCOUNTER → 2017-06-27 | Outpatient (CLI) | payer OTHER ==
[2017-06-27 17:30] LABS: HEMATOCRIT 35.5 % (42-52); MEAN CELL VOLUME 89.9 fL (80-100); MEAN CORPUSCULAR HEMOGLOBIN 29.6 pg (25-34); MEAN PLATELET VOLUME 11.4 fL (7.4-10.4); PLATELET COUNT 188 K/uL (130-400); RED BLOOD COUNT 3.95 M/uL (4.7-6.1); WHITE BLOOD COUNT 6.68 K/uL (4.8-10.8)
[2017-06-27 19:15] LABS: ALB/GLOB RATIO 1.1 (0.9-2); ALKALINE PHOSPHATASE 117 U/L (45-117); ALT/SGPT 34 U/L (12-78); AST/SGOT 26 U/L (15-37); BLOOD UREA NITROGEN 10 mg/dl (7-18); BUN/CREATININE RATIO 10.9 (10-20); CALCIUM 8.9 mg/dl (8.5-10.1); CARBON DIOXIDE 26 mmol/L (21-32); CHLORIDE 104 mmol/L (98-107); CREATININE 0.96 mg/dl (0.60-1.40); GLUCOSE 388 mg/dl (70-99); POTASSIUM 4.5 mmol/L (3.5-5.1); SODIUM 137 mmol/L (136-145)
[2017-06-27 19:28] LABS: BETA-HYDROXYBUTYRATE 1.22 mg/dL (0.2-2.81)
--- NOTE | 2017-07-23 07:51 | CODING QUERY NO DIAGNOSIS ---
TREATMENT RENDERED WITHOUT A DIAGNOSIS : 1955 To promote full compliance with coding requirements relating to patient care, physician participation is requested in all cases of global marketing coordinator uncertainty. Please assist us with providing a diagnosis/symptom for the test(s) below: A diagnosis/symptom was not documented on your Order. A valid diagnosis/symptom is required to bill all insurances. Please remember that we are unable to code a diagnosis of rule out, probable, possible, questionable, or suspected. Tests that require a diagnosis: DOS: 06/27/17 * CBC W/O DIFF DIAGNOSIS: * BETA HYDROXYBUTYRATE DIAGNOSIS: * COMPREHENSIVE METABO DIAGNOSIS: Provider Signature: Date: Thank you Chey Maldonado Health Information Management Once completed, please kindly fax back to [phone] For questions please call [phone]
== END | disposition home or self-care (01) ==
LOC: C.LABSPEC 12:45
PROVIDERS: ATTEND Internal Medicine Infectious Disease
DX: M86.9 Osteomyelitis, unspecified (principal)

== ENCOUNTER → 2017-07-03 | Outpatient (CLI) | payer OTHER ==
[~2017-07-03] MED LIST changes: -CEFT1INJ57 IV
[2017-07-03 17:46] LABS: HEMATOCRIT 35.8 % (42-52); MEAN CELL VOLUME 89.9 fL (80-100); MEAN CORPUSCULAR HEMOGLOBIN 29.9 pg (25-34); MEAN CORPUSCULAR HGB CONC 33.2 g/dl (32-36); MEAN PLATELET VOLUME 11.2 fL (7.4-10.4); PLATELET COUNT 192 K/uL (130-400); RED BLOOD COUNT 3.98 M/uL (4.7-6.1); WHITE BLOOD COUNT 6.44 K/uL (4.8-10.8)
[2017-07-03 18:02] LABS: ALT/SGPT 24 U/L (12-78); AST/SGOT 16 U/L (15-37); BLOOD UREA NITROGEN 16 mg/dl (7-18); BUN/CREATININE RATIO 14.6 (10-20); CALCIUM 8.8 mg/dl (8.5-10.1); CARBON DIOXIDE 27 mmol/L (21-32); CHLORIDE 102 mmol/L (98-107); GLUCOSE 301 mg/dl (70-99); POTASSIUM 4.4 mmol/L (3.5-5.1); SODIUM 137 mmol/L (136-145)
[2017-07-03 18:04] LABS: ALB/GLOB RATIO 0.9 (0.9-2); ALKALINE PHOSPHATASE 106 U/L (45-117)
== END | disposition home or self-care (01) ==
LOC: C.LABSPEC 12:26
PROVIDERS: ATTEND Physical Medicine & Rehabilitation Sports Medicine
DX: Z79.899 Other long term (current) drug therapy (principal)

== ENCOUNTER → 2017-08-16 | Outpatient (CLI) | payer OTHER ==
[2017-08-16 13:03] LABS: CHOLESTEROL/HDL RATIO 1.8; PROSTATE SPECIFIC ANTIGEN 0.474 ng/ml (0.000-4.000)
== END | disposition home or self-care (01) ==
LOC: C.LABBFT 09:40
PROVIDERS: ATTEND Internal Medicine
DX: E78.5 Hyperlipidemia, unspecified (principal); Z12.5 Encounter for screening for malignant neoplasm of prostate

== ENCOUNTER → 2017-09-18 | Outpatient (CLI) | payer OTHER | END | disposition home or self-care (01) | LOC: C.RDSM 14:58 | PROVIDERS: ATTEND Physical Medicine & Rehabilitation Sports Medicine | DX: E11.621 Type 2 diabetes mellitus with foot ulcer (principal) ==

== ENCOUNTER 2017-10-06 08:01 | Day surgery (SDC) | payer OTHER ==
[2017-09-26 10:04] VITALS: BMI 28.0
[~2017-10-06] VITALS: Ht 172.7 cm; Wt 84.5 kg
[2017-10-06] VITALS (8 sets, daily range): BP systolic 125–162; BP diastolic 47–73; PULSE 62–73; TEMP 36.4–36.7; O2SAT 98–100; Ht 172.7 cm; Wt 84.5 kg
--- NOTE | 2017-10-06 06:15 | History and Physical ---
History & Physical Date of Service Oct 06, 2017. History & Physical CC: Non healing wound left foot with PAD HPI: Mr. Chowdhury states that he feels he has been doing generally well since his last visit a year ago. He is status post femoral endarterectomy and bilateral iliac stenting performed in 2014. The patient states that he underwent partial amputation of his left fifth metatarsal a few months ago and this area is taking a considerable amount of time to heal. He states that he has been told that the wound looks good; however, he continues to have the wound VAC and is doing hyperbaric treatments at the wound center. Additionally, he has developed what has been classified as a pressure ulcer to his right lateral malleolus as well as a small wound to his right fifth toe. He does have some chronic edema in his bilateral lower extremities as well. The patient states that the wounds in his right leg have been there for a few months as well. His aortoiliac ultrasound performed demonstrates patent bilateral iliac artery stents with no evidence of restenosis. He does have approximately 50% stenosis of his right external iliac artery, but no evidence of significant stenosis in his left external or common femoral artery. An ultrasound was not performed of his lower extremities distally. ALLERGIES: No known allergies. HOME MEDICATIONS: Reconciled in the chart and include the following: Alendronate, aspirin, atorvastatin, cilostazol, levothyroxine, metoprolol, NovoLog, pantoprazole, vitamin D3 and vitamin E. PAST MEDICAL HISTORY: Positive for arthritis, diabetes, gastroesophageal reflux , heart murmur, thyroid disease, aortic stenosis, peripheral arterial disease and coronary artery disease as well as hypertension. PAST SURGICAL HISTORY: Angiography back in 2007 with his legs and cardiac catheterization performed recently. FAMILY HISTORY: Positive for cancer in aunts and uncles, diabetes in his brother, mother and sister, heart murmur in his uncle and hypertension in his mother and sister. SOCIAL HISTORY: Positive for a past history of tobacco use. The patient states that he quit smoking 10 years ago. He denies significant alcohol or drug use. REVIEW OF SYSTEMS: Negative for fatigue, fevers, sweats, weight loss or exercise intolerance, abnormal moles or rashes, vision changes or photophobia, ear pain, sinus problems or sore throat, cough, shortness of breath, hemoptysis or wheezing, chest pain, palpitations or syncope. He does admit edema of his left lower extremity. He denies abdominal pain, nausea, vomiting, diarrhea, constipation, dysuria, hematuria, muscle weakness, headaches, dizziness, numbness or seizures. PHYSICAL EXAMINATION: Vital signs, blood pressure 150/80 with a heart rate of 73. Oxygenation 98% on room air. His height is 68 inches tall and he weighs 185 pounds. Constitutional, in general patient is a mildly chronically ill- appearing middle-aged male in no acute distress. He ambulates without assistance and is active, alert and oriented x4 with normal recent and remote memory. His head is normocephalic and atraumatic. Eyes are EOMI. His ENMT exam demonstrates no hearing loss, rhinorrhea or pharyngeal erythema. His neck is supple, nontender with midline trachea without masses or crepitus. Lung exam demonstrates no dyspnea. They are decreased throughout but are clear to auscultation bilaterally. Cardiovascular exam demonstrates a nondisplaced apical impulse with a regular rate and rhythm. He does have a loud systolic ejection murmur. His peripheral pulses are full and equal in all extremities unless otherwise noted. Specifically they were normal in his carotid, brachial and radial pulses. The patient's right femoral pulse is +2. His left femoral pulse is +1. His distal pulses in his left foot are nonpalpable. He does have good capillary refill and no signs of distal ischemia. The patient's right foot demonstrates +1 DP and PT pulses with good capillary refill and no signs of distal ischemia. The patient demonstrates no bruits in his carotid, abdominal or femoral area. His abdomen is soft, nontender with normoactive bowel sounds in all 4 quadrants without guarding or rebound. There was no flank or CVA tenderness. Musculoskeletal exam demonstrates normal tone and strength for age. His bilateral upper extremities demonstrate no cyanosis, edema, clubbing, varicosities or ulcers. The patient's left lower extremity does demonstrate +2 to +3 edema and has a quarter-sized 0.5 cm deep skin ulceration on the anterior medial aspect of his left lower ghotra. There is good granulation and small amount of slough noted. There is clear drainage. There is no significant induration or erythema. The patient's left ankle is somewhat deformed due to previous fracture. Neurologically patient has grossly intact cranial nerves and grossly intact sensation. On physical exam, his vital signs were as follows: Blood pressure 138/66 in the right arm, 134/60 in the left, heart rate of 72, and oxygen saturation 99% on room air. Constitutional: In general, the patient is a chronically ill- appearing middle-aged male in no acute distress. He is able to ambulate with a walker for short distances; however, he spends most of his time in the wheelchair due to him not supposed to bear weight on his left foot. Eyes are EOMI. His ENMT exam demonstrates no hearing loss, rhinorrhea or pharyngeal erythema. His neck is supple, nontender with midline trachea without masses or crepitus. Lung exam demonstrates no dyspnea. They are decreased throughout but are clear to auscultation bilaterally. Cardiovascular exam demonstrates a nondisplaced apical impulse with a regular rate and rhythm. He does have a loud systolic ejection murmur. His femoral pulses are +2 on the right, +3 in the left. His right foot distal pulses are nonpalpable. He does have some edema noted. There is an ulceration to his lateral malleolus on the right side as well as a small open area on his right fifth toe. His other toes demonstrate capillary refill at 5 seconds. His left foot is currently with a wound VAC dressing and pulses could not palpated. There is remaining toes appear to have adequate capillary refill. Neurologically patient has grossly intact cranial nerves and grossly intact sensation. ASSESSMENT AND PLAN: Imp: Peripheral arterial disease of left leg with non healing wound. Plan: . The patient is admitted for arteriography and possible intervention of the left lower extremity. I have discussed the risks options and benefits of the procedure with the patient. The patient understands the risks options and benefits and agrees to the procedure.
[~2017-10-06 08:01] MED LIST changes: +CEFA1TAB PO; +CEFAZOLIN 2000MG IV PUSH 10 ML IV SCH; +LACTATED RINGER'S 1000ML 1,000 ML IV SCH; -NF1420 PO; +SODIUM CHLORIDE 0.9% 1000ML IV SCH
[2017-10-06 09:08] LABS: CREATININE 0.86 mg/dl (0.60-1.40)
--- NOTE | 2017-10-06 09:56 | Pre Sedation Assessment ---
Pre Sedation Assessment General Date of Sedation: Oct 06, 2017. Vital Signs Past 12 Hours Date Time Temp Pulse Resp B/P (MAP) Pulse Ox O2 Delivery O2 Flow Rate FiO2 10/06/17 08:35 36.6 62 18 143/47 (79) 100 Room Air Review Cardiovascular: regular rate, rhythm Lungs: lungs clear Pre-Sedation Airway Assessment Smoking Status: Former Smoker Hx of Sleep Apnea: No Short Thick Neck: No Oral Cavity: Dentures Mallampati Classification: Class I ASA Classification: Class II NPO Status Date of Last Intake of Fluids: Oct 05, 2017 Time of Last Intake of Fluids: 05:00 (sip of black coffee) Date of Last Intake of Solids: Oct 04, 2017 Time of Last Intake of Solids: 17:00 Procedure Planning Contraindications for Sedation: None Current Medications Reviewed: Yes Notes The planned sedation has been discussed with the patient. Informed Consent was obtained. I have identified the patient, determined the appropriateness of sedation and have assessed the patient immediately prior to the procedure. All medicine(s) and interventions are by my order.
[2017-10-06] MEDS ORDERED: FENTANYL CITRATE INJ 50 MCG/1 ML 2 ML VIAL ONE (11:45)
[2017-10-06] MEDS ORDERED: HEPARIN SOD (PORCINE) 1000 UNIT/ML 10 ML VIAL ONE (11:45)
[2017-10-06] MEDS ORDERED: MIDAZOLAM HCL 1 MG/ML 2ML VIAL ONE (11:45)
[2017-10-06] MEDS ORDERED: MIDAZOLAM HCL 1 MG/ML 2ML VIAL IV ONE (12:16)
[2017-10-06] MEDS ORDERED: LIDOCAINE HCL 1% 20 ML VIAL INJ ONE (12:16)
[2017-10-06] MEDS ORDERED: FENTANYL CITRATE INJ 50 MCG/1 ML 2 ML VIAL IV ONE (12:16)
--- NOTE | 2017-10-06 12:39 | [facility] Post Operative Brief Note ---
Immediate Operative Summary Operative Date Oct 06, 2017. Pre-Operative Diagnosis Peripheral arterial disease of left leg with non healing wound. Post-Operative Diagnosis Peripheral arterial disease with non healing wound Procedure(s) Performed Left Lower Extremity Angiogram Surgeon Yumi Bilingual Spanish Inbound Sales Surgeon(s) None Estimated Blood Loss 5 Findings Consistent with Post-Op Diagnosis Specimens None Drains None Anesthesia Type IV Sedat Cons RN Only Complication(s) none Disposition Accompanied Pt To Recover: no Disposition:
[2017-10-06] MEDS ORDERED: IODIXANOL (VISIPAQUE) 270 MG/ML 50ML XX ONE (12:40)
--- NOTE | 2017-10-06 12:41 | Discharge Instructions ---
Discharge Instructions Date of Service Oct 06, 2017. Visit Reason for Visit: Left Leg Atherosclerosis Discharge Discharge Diagnosis / Problem: Peripheral vascular disease of the left lower extremity/non healing wound Discharge Goals Goal(s): Diagnostic testing Activity Recommendations Activity Limitations: per Instructions/Follow-up section Anesthesia . Post Anesthesia Instructions: If you have had General Anesthesia or IV Sedation: * Do not drive today. * Resume driving when surgeon permits. * Do not make important decisions or sign legal documents today. * Call surgeon for: 1. Temperature elevations greater than 101 degrees F. 2. Uncontrollable pain. 3. Excessive bleeding. 4. Persistent nausea and vomiting. 5. Medication intolerance (nausea, vomiting or rash). * For nausea and vomiting use only clear liquids such as: tea, soda, bouillon until nausea subsides, then gradually increase diet as tolerated. * If you have any concerns or questions, call your surgeon's office. If physician is unavailable and it is an emergency, call 911 or go to the nearest emergency room. . Instructions / Follow-Up Instructions / Follow-Up Call [phone] to schedule a follow up appointment if one not already scheduled. SPECIAL CARE INSTRUCTIONS: Medications: * Continue to take your medications as directed. If you have been given a prescription for Plavix, please fill it immediately and take as directed. Incision Care: * Your puncture site may have some bruising and minor swelling for about one week. * You will have a small dressing covering your puncture site. You may remove the dressing after 24 hours and shower. You may let the warm soapy water run over it, but be sure to dry the puncture site well and keep it dry. * DO NOT IMMERSE THE INCISION IN A TUB/POOL/etc. UNTIL HEALED. * Puncture sites should be kept covered with a band-aid until it begins to heal. Restrictions: * Depending on whether you leg or arm was punctured to access the arteries, you will be required to lay flat, hold your arm still, or both, for about 4 hours after the procedure to prevent bleeding. * Limit your activity for the first 48 hours. You may walk and go up and down steps. Avoid excessive bending or movement at the puncture site. Possible Complications: * Excessive Swelling - after blood flow is improved you may notice increased swelling in the lower legs. This is a normal response. This usually depends on the amount of blockages in the leg, how long they have been there prior to your procedure and how much blood flow was restored. Elevating your legs will help to improve this. Please notify our office ([phone] ) if the swelling does not go away after lying in bed overnight. * Infection/Drainage/Bleeding - Drainage or bleeding from the puncture site should be minimal. If you have excessive bleeding or drainage, call our office ([phone]) right away. * Pain - You may experience some mild pain or soreness at your puncture site. If your pain does not improve, please contact our office ([phone]). Call your doctor and seek emergent treatment if you develop: * Temperature above 101 degrees * Any fever or chills * Any redness or purulent drainage from the puncture site * Any new dusky/blue colored toes or feet with coolness or sharp or aching pain. SKIN IRRITATION: * You may experience some redness and/or swelling in the area where radiation was administered. If any skin irritation occurs, please contact your family physician. FOLLOW UP VISIT: Keep any scheduled doctor appointments. Diet Recommendations Recommended Home Diet: resume previous diet Procedures Procedures Performed: Left Lower Extremity Angiogram Pending Studies Studies pending at discharge: no Medical Emergencies . Who to Call and When: Medical Emergencies: If at any time you feel your situation is an emergency, please call 911 immediately. . Non-Emergent Contact Non-Emergency issues call your: Surgeon . . "Provider Documentation" section prepared by Floyd Eason. .
[2017-10-06] MEDS ORDERED: OXYCODONE/ACETAMINOPHEN 5-325 TAB PO PRN (12:45)
--- NOTE | 2017-10-06 12:50 | [facility] Operative Report ---
Operative Report Operative Date Oct 06, 2017. Pre-Operative Diagnosis Peripheral arterial disease of left leg with non healing wound. Post-Operative Diagnosis Peripheral arterial disease with non healing wound Procedure(s) Performed Left Lower Extremity Angiogram Surgeon Yumi [address] Security Officer Surgeon(s) None Estimated Blood Loss 5 Findings Occluded SFA with recon of popliteal. Occluded peroneal and post tib with recon of mid post tib to foot. AT patent to foot Specimens None Anesthesia Local with sedation Complication(s) None Disposition Indications This is a 62-year-old male who has a nonhealing wound of his left foot. No improvement has been seen over the last few weeks. He is known to have peripheral vascular disease with previous stenting the left superficial femoral artery. Arteriography was recommended with possible intervention. I have discussed the risks options and benefits of the procedure with the patient. The patient understands the risks options and benefits and agrees to the procedure. Description of Procedure The patient was taken to the angiogram suite and placed in the supine position. Both groins were then prepped and draped in a sterile manner. Local anesthetic was administered to the right groin. A percutaneous puncture was made of the right super a right common femoral artery. A wire was inserted a 5 Syrian sheath was inserted over the wire. Using 035 Glidewire and the MHK 1 catheter was placed at the aortic bifurcation. Arteriography done at this point showed both common iliac artery stents be widely patent. The right and left external iliac arteries were also widely patent. The wire was then passed down into the common femoral artery. The MHK 1 catheter was passed down to the distal external iliac artery on the left side. Arteriography was then performed. This showed a focal significant narrowing just at the origin of the profunda femoral artery. The left superficial femoral artery is totally occluded from its origin down to the of proximal popliteal artery. There is reconstitution of the popliteal at that level. The anterior tibial artery was seen in its entirety from the origin down to the foot. The peroneal is totally occluded. The posterior tibial and tibial peroneal trunk was also occluded. The posterior tibial artery reconstituted in the mid calf and was patent down to the foot. Being that the superficial femoral artery was fully stented it was decided not to attempt to recannulize this area. At that point the catheter was removed. The sheath was pulled and pressure was applied. Adequate hemostasis was obtained. A sterile dressing was applied to the puncture site. The patient left the angiogram room in satisfactory condition and tolerated the procedure well. I attest to the content of the Intraoperative Record and any orders documented therein. Any exceptions are noted below.
--- NOTE | 2017-10-06 12:53 | Post Sedation Assessment ---
Post Sedation Assessment General Date of Sedation Oct 06, 2017. Vital Signs: Vital Signs Past 12 Hours Date Time Temp Pulse Resp B/P (MAP) Pulse Ox O2 Delivery O2 Flow Rate FiO2 10/06/17 12:51 61 16 145/65 98 Room Air Oxymask 10/06/17 12:46 Room Air Oxymask 10/06/17 12:41 98 Room Air Oxymask 10/06/17 12:36 100 Room Air Oxymask 10/06/17 12:31 60 12 127/59 100 Oxymask 4 10/06/17 12:26 Oxymask 4 10/06/17 12:21 Oxymask 4 10/06/17 12:16 Oxymask 4 10/06/17 12:09 62 17 148/70 100 Oxymask 4 10/06/17 08:35 36.6 62 18 143/47 (79) 100 Room Air Post Procedure Recovery Score Activity: (2) Moves 4 extremities * Respiration: (2) Deep breath/cough Circulation: (2) +/-20% PreAnes Value Consciousness: (2) Fully Awake Oxygen Saturation: (2) > 92% On Room Air Post Anesthesia Score: 10 Discharge Sedation Level of Care: Fast Track Phase II Post Sedation Plan On clinical assessment, the patient appears to have tolerated the sedation without complications. Patient is recovering as anticipated. Patient will continue to be monitored by nursing and may be discharged when sedation discharge criteria are met per below protocol. Upon Completions of procedure and additional 15 minutes continue every 5 minute vital signs and the P.A.R. score; then discharge to a Phase I or Fast Track to Phase II per the following guidelines: * Discharge Patient to appropriate Phase II area if PAR is 8 or greater or return to pre- procedure baseline. The post - procedure orders will be as directed. * If PAR score is less than 8 or not return to pre-procedure baseline then patient will follow Phase I monitoring till PAR is reached for Phase II. The Phase I may be done in procedure room or may call to secure a Phase I area. * If naloxone or flumazenil are used for reversal, hold in Phase I for an additional 60 -120 minutes before discharge to Phase II. Please call the Sedation Physician to re-evaluate and complete post-note for discharge to Phase II area. Do NOT discharge from procedure sedation or Phase 1 until post- sedation evaluation note is complete by procedure /sedation MD Sedation Discharge Instructions to be given to the patient at discharge to home.
[2017-11-20] MEDS ORDERED: LEVO1TAB33 PO (13:34)
== END 2017-10-06 17:45 | disposition home or self-care (01) ==
LOC: C.ACU 08:01
PROVIDERS: ATTEND Surgery Vascular Surgery
DX: I73.9 Peripheral vascular disease, unspecified (principal); S91.309A Unspecified open wound, unspecified foot, initial encounter; X58.XXXA Exposure to other specified factors, initial encounter; M19.90 Unspecified osteoarthritis, unspecified site; E11.9 Type 2 diabetes mellitus without complications; K21.9 Gastro-esophageal reflux disease without esophagitis; E07.9 Disorder of thyroid, unspecified; I35.0 Nonrheumatic aortic (valve) stenosis; I25.10 Atherosclerotic heart disease of native coronary artery without angina pectoris; I10 Essential (primary) hypertension; Z87.891 Personal history of nicotine dependence; Z83.3 Family history of diabetes mellitus

== ENCOUNTER 2017-10-06 22:18 | Emergency (ER) | payer OTHER ==
[~2017-10-06] VITALS: Ht 172.7 cm; Wt 85.0 kg
[~2017-10-06 22:18] MED LIST changes: -CEFAZOLIN 2000MG IV PUSH 10 ML IV SCH; -LACTATED RINGER'S 1000ML 1,000 ML IV SCH; -SODIUM CHLORIDE 0.9% 1000ML IV SCH
[2017-10-06 22:25] VITALS: TEMP 36.7; O2SAT 98; Ht 172.7 cm; Wt 85.0 kg
--- NOTE | 2017-10-06 22:45 | EMERGENCY ROOM VISIT NOTE ---
History Report prepared by Leidy: Ron Cervantes Under the Supervision of: Dr. Jose Daniel Lindsey M.D. First contact with patient: 22:31 Chief Complaint: BLEEDING Stated Complaint: HAD ANGIOGRAM PROCEDUCE DONE TODAY BLEEDING History of Present Illness The patient is a 62 year old male who presents to the Emergency Room with complaints of constant bleeding that began recently. Patient states the bleeding is located in his right groin. Patient is present with his daughter. Patient states he had an angioplasty procedure today. He states the bleeding has not stopped since he was discharged from the procedure. Patient states that Dr. Eason performed the procedure. Patient states he currently takes Metoprolol , Plavix, and aspirin. Patient has a history of coronary stents. Source of History: patient Onset: Recent Position: other (Right groin) Timing: constant Modifying Factors (Relieving): other (None) Review of Systems See HPI for pertinent positives & negatives. A total of 10 systems reviewed and were otherwise negative. Past Medical & Surgical Medical Problems: (1) Aorto-iliac disease (2) Coronary artery disease (3) Diabetes (4) Diabetic foot infection (5) Diabetic foot ulcer associated with type 1 diabetes mellitus (6) Diabetic peripheral neuropathy associated with type 1 diabetes mellitus (7) DKA (diabetic ketoacidoses) (8) Foot deformity (9) Foot drop (10) Hyperglycemia due to type 1 diabetes mellitus (11) Loss of sensation (12) NSTEMI (non-ST elevated myocardial infarction) (13) Osteomyelitis of left foot (14) Peripheral vascular disease (15) Status post partial amputation of foot Family History Alzheimer's disease MOTHER Asthma Diabetes mellitus BROTHER SISTER GRANDMOTHER Aunt Maternal Aunt Esophageal cancer FATHER FH: kidney cancer Paternal Uncle Lung cancer Paternal Aunt Tobacco abuse Paternal Aunt Social History Smoking Status: Former Smoker Drug Use: none Marital Status: Occupation Status: disabled Current/Historical Medications Scheduled Alendronate Sodium (Alendronate Sodium), 70 MG PO WK Aspirin (Aspirin Ec), 81 MG PO QAM Atorvastatin (Lipitor), 80 MG PO HS Calcium Carbonate (Calcium), 600 MG PO QAM Cefadroxil (Cefadroxil), 1 GM PO BID Cholecalciferol (Vitamin D3), 1 CAP PO BID Clopidogrel (Plavix), 75 MG PO QAM Insulin Aspart (Novolog Penfill), 5-10 UNITS SQ ACHS Insulin Glargine (Lantus), 42 UNITS SC QPM Levothyroxine Sodium (Levothyroxine Sodium), 175 MCG PO QAM Losartan Potassium (Cozaar), 25 MG PO QAM Metoprolol Tartrate (Lopressor), 12.5 MG PO BID Pantoprazole (Protonix), 40 MG PO QAM Allergies Coded Allergies: No Known Allergies (Verified , 10/06/17) Physical Exam Vital Signs Date Time Temp Pulse Resp B/P (MAP) Pulse Ox O2 Delivery O2 Flow Rate FiO2 10/06/17 23:59 78 197/74 10/06/17 22:25 36.7 80 20 141/58 98 Room Air Physical Exam GENERAL: Patient is a healthy-appearing well-nourished male HEAD: Normocephalic atraumatic EYES: Ocular movements intact pupils equal and react to light OROPHARYNX mucous membranes are moist no exudates present no erythema or edema present NECK: Supple no nuchal rigidity CHEST: Good equal expansion LUNGS: Clear and equal to auscultation CARDIAC: Normal S1 and S2 ABDOMEN: Soft nontender no guarding BACK: No CVA tenderness EXTREMITIES: No pain upon palpation normal muscle strength in all groups no clubbing cyanosis or edema. Bleeding from arterial puncture wound. Slight bruising the the area. Good distal pulses in right leg. NEURO: Patient is following commands and answering questions appropriately. Alert and oriented x3 Cranial Nerves 2-12 grossly intact Medical Decision & Procedures ED Course 2235: Past medical records reviewed. The patient was evaluated in room B10. A complete history and physical examination was performed. 2354: Upon reexamination the patient is resting comfortably. I discussed results and treatment plan with the patient. He verbalizes agreement and understanding. The patient is ready for discharge. Medical Decision This is a 62-year-old male who presents emergency Department with bleeding from his catheterization site. This was controlled by applying pressure. A pressure dressing was then applied. I recommended the patient follow up with Dr Eason's office. Medication Reconcilliation Current Medication List: was personally reviewed by me Blood Pressure Screening Patient's blood pressure: Elevated blood pressure Blood pressure disposition: Referred to PCP Impression Primary Impression: Bleeding from wound Scribe Attestation The scribe's documentation has been prepared under my direction and personally reviewed by me in its entirety. I confirm that the note above accurately reflects all work, treatment, procedures, and medical decision making performed by me. Departure Information Dispostion Home / Self-Care Referrals Enio Richards M.D. (PCP) Forms HOME CARE DOCUMENTATION FORM, IMPORTANT VISIT INFORMATION Patient Instructions My [facility] Additional Instructions Follow up with Dr Eason's office You have been examined and treated today on an emergency basis only. This is not a substitute for, or an effort to provide, complete comprehensive medical care. It is impossible to recognize and treat all injuries or illnesses in a single emergency department visit. It is therefore important that you follow up closely with Dr Richards. Call as soon as possible for an appointment. Thank you for your time and consideration. I look forward to speaking with you again soon. Please don't hesitate to call us if you have any questions.
[2017-10-06 23:59] VITALS: BP 197/74; PULSE 78
== END 2017-10-06 23:57 | disposition home or self-care (01) ==
LOC: C.EDB 22:19
DX: I97.610 Postprocedural hemorrhage of a circulatory system organ or structure following a cardiac catheterization (principal); I25.10 Atherosclerotic heart disease of native coronary artery without angina pectoris; E10.42 Type 1 diabetes mellitus with diabetic polyneuropathy; E10.65 Type 1 diabetes mellitus with hyperglycemia; E10.51 Type 1 diabetes mellitus with diabetic peripheral angiopathy without gangrene; I25.2 Old myocardial infarction; Z95.5 Presence of coronary angioplasty implant and graft; Z79.82 Long term (current) use of aspirin; Z79.02 Long term (current) use of antithrombotics/antiplatelets; Z79.4 Long term (current) use of insulin; Z87.891 Personal history of nicotine dependence; Z82.0 Family history of epilepsy and other diseases of the nervous system; Z82.5 Family history of asthma and other chronic lower respiratory diseases; Z83.3 Family history of diabetes mellitus; Z80.0 Family history of malignant neoplasm of digestive organs; Z80.51 Family history of malignant neoplasm of kidney; Z80.1 Family history of malignant neoplasm of trachea, bronchus and lung

== ENCOUNTER → 2017-12-20 | Outpatient (CLI) | payer OTHER ==
[~2017-12-20] MED LIST changes: +LEVO1TAB33 PO
[2017-12-21 06:31] LABS: HEMOGLOBIN A1C 10.3 % (4.5-5.6)
== END | disposition home or self-care (01) ==
LOC: C.LABBFT 11:23
PROVIDERS: ATTEND Physician Assistant Medical
DX: E03.9 Hypothyroidism, unspecified (principal); E10.9 Type 1 diabetes mellitus without complications

== ENCOUNTER → 2018-01-03 | Outpatient (CLI) | payer OTHER | END | disposition home or self-care (01) | LOC: C.LABBFT 09:45 | PROVIDERS: ATTEND Physician Assistant Medical | DX: R19.7 Diarrhea, unspecified (principal) ==

== ENCOUNTER → 2018-04-20 | Outpatient (CLI) | payer OTHER ==
[~2018-04-20] MED LIST changes: -LEVO1TAB33 PO
[2018-04-20 17:40] LABS: BLOOD UREA NITROGEN 12 mg/dl (7-18); CREATININE 1.18 mg/dl (0.60-1.40)
== END | disposition home or self-care (01) ==
LOC: C.LABBFT 12:02
PROVIDERS: ATTEND Emergency Medicine
DX: S91.001A Unspecified open wound, right ankle, initial encounter (principal); X58.XXXA Exposure to other specified factors, initial encounter

== ENCOUNTER → 2018-04-23 | Outpatient (CLI) | payer OTHER ==
[~2018-04-23] MED LIST changes: +GADAVIST IV PRN
--- NOTE | 2018-04-23 11:18 | DIAGNOSTIC IMAGING REPORT ---
R LOWER EXT JOINT COMBO CLINICAL HISTORY: 62 years-old Male presenting with RT ANKLE NON HEALING WOUND, marker placed over the lateral malleolus, history of diabetes, loss of sensation. TECHNIQUE: Multisequence, multiplanar MR imaging of the right ankle was performed before and after the administration of intravenous contrast. IV contrast: 9 mL of Gadavist. COMPARISON: None. FINDINGS: Localizer images: Unremarkable. Bone marrow: T2 hyperintense, T1 hypointense bone marrow edema at the posterior aspect of the lateral malleolus. This demonstrates mild enhancement on postcontrast imaging. This is at the site of the overlying open wound. No other sites of bone marrow edema. Articular cartilage: Articular cartilage preserved. Syndesmotic ligament: Anterior-inferior and posterior-inferior tibiofibular ligaments intact. Interosseous membrane intact. Lateral ligamentous complex: Increased signal intensity of the anterior and posterior talofibular ligaments, which may indicate chronic degeneration. Calcaneofibular ligament intact. Deltoid ligament complex: Intact. Anterior tendons: Tibialis anterior, extensor hallucis longus and extensor digitorum longus tendons intact. Lateral tendons: Peroneus longus and brevis tendons intact. Medial tendons: Posterior tibialis demonstrates tendinosis at the insertional fibers (series 10 image 27). Flexor digitorum longus and flexor hallucis longus tendons intact. Plantar fascia: Medial and lateral bundles of the plantar fascia intact. No nodularity of the plantar fascia. Achilles tendon: Achilles tendon intact. No retrocalcaneal bursitis. No infiltration of Kager fat pad. Sinus tarsi: Normal signal intensity within the sinus tarsi. Joint effusion: No significant ankle joint effusion. Muscle: Evidence of fatty atrophy of musculature diffusely. There is also nonspecific muscle T2 hyperintensity in the plantar superficial compartment. Edema also noted in the flexor hallucis longus muscle belly. Superficial soft tissue: Marker in place over the lateral malleolus. Immediately distal to this, there is an open wound with the cutis defect surrounded by infiltrated subcutaneous fat (series 7 image 20). The wound measures approximately 9 mm in width. This defect tracks to the posterior inferior aspect of the lateral malleolus. No focal fluid collection to suggest abscess. IMPRESSION: 1. Findings concerning for osteomyelitis of the lateral malleolus subjacent to the open wound. No abscess. Correlate clinically to exclude cellulitis. 2. Chronic degenerative changes of the lateral ligamentous complex. 3. Tendinosis of the insertional fibers of the posterior tibialis. 4. Muscle atrophy. Electronically signed by: Xander Forde M.D. 04/23/2018 11:17 AM Dictated Date/Time: 04/23/2018 11:05 AM
== END | disposition home or self-care (01) ==
LOC: C.MRI 09:39
PROVIDERS: ATTEND Physician Assistant
DX: S91.001A Unspecified open wound, right ankle, initial encounter (principal); X58.XXXA Exposure to other specified factors, initial encounter; M76.821 Posterior tibial tendinitis, right leg; M62.50 Muscle wasting and atrophy, not elsewhere classified, unspecified site

== ENCOUNTER → 2018-04-25 | Outpatient (CLI) | payer OTHER ==
[~2018-04-25] MED LIST changes: -GADAVIST IV PRN
== END | disposition home or self-care (01) ==
LOC: C.RDSM 14:46
PROVIDERS: ATTEND Physical Medicine & Rehabilitation Sports Medicine
DX: M25.571 Pain in right ankle and joints of right foot (principal)

== ENCOUNTER 2019-11-12 13:43 | Inpatient (IN) ==
--- NOTE | 2019-11-12 14:59 | XRay Report ---
XR chest 1V portable CLINICAL HISTORY: 64 years-old Male presenting with Chest Pain. TECHNIQUE: Portable upright AP view of the chest was obtained. COMPARISON: 11/05/2018. FINDINGS: Median sternotomy wires and prosthetic valve noted, likely prosthetic aortic valve and cardiac silhou ette normal in size. Chronic blunting of the right costophrenic angle. No focal lung opacity. No larg e pneumothorax. Degenerative changes of the thoracic spine. IMPRESSION: 1. No acute cardiopulmonary disease. ACT 112: Negative or not required by law. Electronically signed by: Xander Forde M.D. 11/12/2019 2:57 PM
[2019-11-12 15:09] LABS: Basophils # (auto) 0.05 K/uL (0-0.2); Basophils % (auto) 0.4 %; Eosinophils # (auto) 0.06 K/uL (0-0.5); Eosinophils % (auto) 0.5 %; Hematocrit (blood only) 35.9 % (42-52); Hemoglobin 11.6 g/dL (14.0-18.0); Immature Granulocytes # (auto) 0.03 K/uL (0.00-0.02); Immature Granulocytes % (auto) 0.3 %; Lymphocytes # (auto) 0.91 K/uL (1.2-3.4); Lymphocytes % (auto) 7.7 %; Mean Corpuscular Hemoglobin 29.5 pg (25-34); Mean Corpuscular Hgb Conc 32.3 g/dL (32-36); Mean Corpuscular Volume 91.3 fL (80-100); Mean Platelet Volume 10.9 fL (7.4-10.4); Monocytes # (auto) 0.79 K/uL (0.11-0.59); Monocytes % (auto) 6.6 %; Neutrophils # (auto) 10.04 K/uL (1.4-6.5); Neutrophils % (auto) 84.5 %; Platelet Count 233 K/uL (130-400); RDW Coefficient of Variation 13.1 % (11.5-14.5); Red Blood Count 3.93 M/uL (4.7-6.1); White Blood Count 11.88 K/uL (4.8-10.8)
[2019-11-12 15:15] LABS: INR 1.1 (0.9-1.1); Partial Thromboplastin Ratio 0.9; Partial Thromboplastin Time 24.3 Seconds (21.0-31.0); Prothrombin Time 11.2 Seconds (9.0-12.0)
[2019-11-12 15:31] LABS: Alanine Aminotransferase 24 U/L (12-78); Albumin Globulin Ratio 0.9 (0.9-2); Albumin Level 3.7 gm/dl (3.4-5.0); Alkaline Phosphatase 148 U/L (45-117); Aspartate Aminotransferase 20 U/L (15-37); BUN Creatinine Ratio 16.5 (10-20); Blood Urea Nitrogen 26 mg/dl (7-18); Calcium 8.9 mg/dl (8.5-10.1); Carbon Dioxide 21 mmol/L (21-32); Chloride 99 mmol/L (98-107); Creatinine Clr Calc Pharmacy 54.9 ml/min; Est GFR (African American) 54.8; Est GFR (Non-African American) 47.3; Glucose 478 mg/dl (70-99); Lipase 50 U/L (73-393); Potassium 4.8 mmol/L (3.5-5.1); Sodium 131 mmol/L (136-145); Total Protein 7.7 gm/dl (6.4-8.2); Troponin I < 0.015 ng/ml (0-0.045)
[2019-11-12] MEDS ORDERED: ONDANSETRON INJ 2 MG/ML 2 ML VIAL IV STA (15:43)
[2019-11-12] MEDS ORDERED: SODIUM CHLORIDE 0.9% 1000ML 1,000 ML IV ONE (15:43)
[2019-11-12] MEDS ORDERED: ASPIRIN 81 MG CHEW PO STA (15:46)
[2019-11-12] MEDS ORDERED: DEXTROSE 50% 50 ML SYRINGE IV PRN (15:59)
[2019-11-12] MEDS ORDERED: GLUCOSE 10 TABS/TUBE PO PRN (15:59)
[2019-11-12] MEDS ORDERED: GLUCOSE 40% GEL 15 GM TUBE PO PRN (15:59)
[2019-11-12] MEDS ORDERED: DKA GOAL RANGE 150-250 mg/dl ONE (15:59)
[2019-11-12] MEDS ORDERED: ED DKA INSULIN DRIP ONE (15:59)
[2019-11-12] MEDS ORDERED: GLUCAGON FOR INJ 1 MG VIAL SQ PRN (15:59)
[2019-11-12] MEDS ORDERED: CARBOHYDRATES FOR HYPOGLYCEMIA PO PRN (15:59)
[2019-11-12] MEDS ORDERED: INSULIN REGULAR 250 UNITS in SODIUM CHLORIDE 0.9% 247.5 ML IV SCH (16:00)
[2019-11-12 16:04] LABS: Beta-Hydroxybutyrate 16.38 mg/dl (0.2-2.81)
--- NOTE | 2019-11-12 16:42 | Electrocardiogram Report ---
Test Reason : Blood Pressure : / mmHG Vent. Rate : 073 BPM Atrial Rate : 073 BPM P-R Int : 180 ms QRS Dur : 142 ms QT Int : 460 ms P-R-T Axes : 050 010 030 degrees QTc Int : 506 ms Poor data quality, interpretation may be adversely affected Normal sinus rhythm Possible Left atrial enlargement Right bundle branch block Abnormal ECG When compared with ECG of 28-NOV-2018 14:49, Minimal criteria for Inferior infarct are no longer Present Confirmed by Joselo Downey ([id number]) on 11/12/2019 4:42:23 PM Referred By: Confirmed By:Joselo Downey
--- NOTE | 2019-11-12 16:45 | Electrocardiogram Report ---
Test Reason : Blood Pressure : / mmHG Vent. Rate : 111 BPM Atrial Rate : 111 BPM P-R Int : 204 ms QRS Dur : 160 ms QT Int : 436 ms P-R-T Axes : 062 261 055 degrees QTc Int : 592 ms Sinus tachycardia with occasional Premature ventricular complexes Right bundle branch block Abnormal ECG When compared with ECG of 12-NOV-2019 13:50, (unconfirmed) Premature ventricular complexes are now Present Vent. rate has increased BY 38 BPM QRS axis Shifted left Confirmed by Joselo Downey ([id number]) on 11/12/2019 4:45:02 PM Referred By: Confirmed By:Joselo Downey
[2019-11-12 17:01] LABS: Appearance Urine Clear (Clear); Bilirubin Urine Negative (Negative); Blood Urine Negative (Negative); Color Urine Yellow; Glucose Urine UA 3+ (Negative); Ketones Urine 2+ (Negative); Leukocyte Esterase Urine Negative (Negative); Nitrite Urine Negative (Negative); Protein Urine Negative (Negative); Specific Gravity Urine 1.019 (1.000-1.030); Urobilinogen Urine Negative (Negative); pH Urine 5.5 (4.5-7.5)
[2019-11-12 17:02] LABS: BUN Creatinine Ratio 17.1 (10-20); Creatinine Clr Calc Pharmacy 50.7 ml/min; Est GFR (African American) 49.7; Est GFR (Non-African American) 42.9; Potassium 4.9 mmol/L (3.5-5.1)
[2019-11-12 17:15] LABS: Beta-Hydroxybutyrate 28.54 mg/dl (0.2-2.81)
[2019-11-12] MEDS: SODIUM CHLORIDE 0.9% 1000ML 1,000 ML IV SCH (17:33)
--- NOTE | 2019-11-12 17:41 | History & Physical Report ---
Date of Service November 12, 2019 Assessment & Plan (1) DKA (diabetic ketoacidoses): - Likely related to incorrect use of insulin pump at home - pt. reports he does not think insulin pump was correctly administering insulin. - BG >400 after presenting to ER; elevated beta-hydroxybutyric acid level and anion gap metabolic acidosis noted on labs. - Continue insulin drip -- started by ER physician. - NPO except medications. - IV fluids at 125 cc/hr for aggressive hydration. - Hemoglobin A1C is pending, will follow lab. - Repeat BMP in the morning. (2) High anion gap metabolic acidosis: - In setting of DKA -- monitoring BMP closely. (3) Nausea: - Likely related to DKA. - Compazine prn; avoid QT prolonging agents -- most recent QTc was 592 on EKG. (4) Chest pain: - Concern for cardiac course. - EKG x 2 negative for acute changes. - Initial trop was negative; will trend q6hr. - Continue cardiac meds: ASA 81 mg (received 325 in the ER), Metoprolol, Plavix, statin as prescribed. - Will be NPO -- consider cardiology consult in the morning vs. stress echo if serial trops are negative. (5) Coronary artery disease: - H/o "mild" MA in 2014 following vascular intervention. - H/o CABG x 1 during aortic valve replacement in 2015 at [facility] [place]. - Continue cardiac meds. Cardiac work up as noted above. - [place] [facility] [place]. (6) Peripheral vascular disease: - S/p B/L iliac artery stents 2014, R common/external iliac 2017, R common femoral endarterectomy 11/2018 with bovine patch. - Continue Plavix, ASA, statin as prescribed. (7) Aorto-iliac disease: - S/p B/L ILIAC STENT PLACEMENT BY DR. RUBIO IN 2014. (8) Acute renal failure: - Creatinine 1.68, baseline ~1.0-1.1 - IV fluids at 125 cc/hr. - Hold nephrotoxic agents. - Monitor BMP daily. (9) Diabetic foot ulcer associated with type 1 diabetes mellitus: - Follows with the wound clinic, Dr. Neville, and ID, Dr. Ennis for bilateral feet wounds, chronic osteomyelitis. - Most recently status post debridement on 11/05. - Continue Amoxicillin and Bactrim -- most recent wound culture +VRE and Pseudomonas. - Consult wound nurse for dressing changes. (10) S/P aortic valve replacement with bioprosthetic valve: - In 2016 at [facility]. (11) HTN (hypertension), benign: - Continue Metoprolol 12.5 mg BID. (12) Hypothyroidism: - Continue Levothyroxine as prescribed. - TSH was 0.9 in Jul 2019. (13) Dyslipidemia: - Continue statin as prescribed. (14) GERD (gastroesophageal reflux disease): - PPI daily. (15) Anemia: - Hgb baseline ~11. - Possibly anemia of chronic disease; consider iron studies as well. - Monitor CBC daily. DVT ppx: Heparin BID. Dispo: Med/surg with tele for DKA, cardiac work up. History of Present Illness Chief Complaint: Nausea, Indigestion Primary Care Provider: Enio Richards MD Mr. Chowdhury is a 64 year old male with past medical history of Type I DM, Chronic osteomyelitis of the feet, Kidney stones, Peripheral vascular disease, CAD, Aorto-iliac disease, HTN, Hypothyroidism, Aortic valve replacement, HLD who presented with nausea/indigestion. Pt. has a h/o MA in 2014 following vascular intervention with Dr. Rubio along with aortic valve replacement and CABG x1 in 2016 at [facility] [place]. He developed similar symptoms compared to prior cardiac event today around 12:15 pm. Patient had nausea along with "indigestion" -- described as a constant sternal discomfort. He has an insulin pump but does not think pump was functioning properly at home to administer insulin correctly. BG was >400 after presenting to the ER. He denies headache, vision changes, shortness of breath, vomiting, abd pain, diarrhea or constipation, dysuria or hematuria, urinary frequency. ER course: Labs c/w diabetic ketoacidosis. Insulin drip and IV fluids were started. Zofran was administered for nausea. EKG showed known RBBB, no significant ST-T wave changes. Initial troponin was negative. Will admit for treatment of DKA and cardiac work up. Allergies Allergy/AdvReac Type Severity Reaction Status Date / Time No Known Allergies Allergy Unknown Verified 11/12/19 15:16 Home Medications Home Medications Medication Instructions Recorded Confirmed Type aspirin 81 mg tablet,delayed 81 mg PO QAM tab 05/10/18 11/12/19 History release meclizine 25 mg tablet 25 mg PO BID PRN 11/15/18 03/03/20 History clopidogrel [Plavix] 1 tab PO QAM 11/09/18 11/12/19 History levothyroxine 150 mcg PO QAM 11/10/18 11/12/19 History metoprolol tartrate 12.5 mg PO BID 11/10/18 11/12/19 History blood sugar diagnostic #10 ea 04/10/19 11/05/19 History blood-glucose meter #1 ea 04/10/19 11/05/19 History insulin syringe-needle U-100 0.5 #10 ea 04/10/19 11/05/19 History mL 30 gauge x 01/24" pen needle, diabetic 32 gauge x #10 ea 04/10/19 11/05/19 History 5/32" triamcinolone acetonide 0.1 % 1 appln TOPICAL BID PRN #1 gm 06/10/19 11/12/19 History topical ointment insulin aspart U-100 [Novolog 1 unit SQ UD 08/13/19 11/12/19 History U-100 Insulin aspart] oxycodone-acetaminophen [Percocet] 1 tab PO TID PRN #6 tab 08/26/19 11/12/19 Rx tramadol [Ultram] 50 mg PO Q8H PRN 08/26/19 11/12/19 History sulfamethoxazole 800 1 tab PO BID PRN 14 Days #28 tab 10/01/19 11/12/19 Rx mg-trimethoprim 160 mg tablet amoxicillin 500 mg capsule 500 mg PO TID #90 cap 10/22/19 11/12/19 Rx pantoprazole 40 mg tablet,delayed 40 mg PO QAM #30 tab 10/22/19 11/12/19 Rx release atorvastatin 80 mg tablet 80 mg PO HS #30 tab 10/28/19 11/12/19 Rx Past Med/Surg History Medical History Aortic stenosis s/p porcine valve 10/29/15 with CABG x 1 CAD (coronary artery disease) (Chronic) s/p CABG x 1 2015. Pt reports "small MA" 2014. Diabetic foot ulcer associated with type 1 diabetes mellitus (Chronic) Currently wearing full boot on R foot, diabetic shoe/slipper on L foot. Diabetic peripheral neuropathy (Acute) Dyslipidemia GERD (gastroesophageal reflux disease) Hypertension Hypothyroidism Myocardial Infarction MARCH 2015. "MILD MA" AFTER SURGERY PVD (peripheral vascular disease) (Chronic) s/p B/L iliac artery stents 2014, R common/external iliac 2017, R common femoral endarterectomy 11/2018 with bovine patch. Type 1 diabetes Surgical History H/O cataract extraction BILATERALLY H/O endarterectomy R common femoral 12/07/18 History of ankle surgery LEFT ANKLE PINNING. History of aortic valve replacement 2015 - [place] History of colonoscopy History of coronary artery bypass graft 2016, AORTIC VALVE REPLACEMENT, CABG X1. [facility] History of esophagogastroduodenoscopy (EGD) History of herniorrhaphy UMBILICAL History of open reduction and internal fixation (ORIF) procedure left leg 1970s History of surgery 12/07/18 right common femoral endarterectomy with bovine pericardial angioplasty History of vitrectomy LEFT EYE S/P insertion of iliac artery stent B/L ILIAC STENT PLACEMENT BY DR. 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 HX OF 2 PPD "WASTED A LOT" ; Do You Dip or Chew Tobacco: No (former) ; Smoking End Date: 2009 ; Second Hand Exposure: Yes (ON OCC) ; Hx Alcohol Use: Yes Alcohol type: beer Hx Substance Use: No Review of Systems Review of Systems: All systems reviewed & are unremarkable except as noted in HPI & below Constitutional: + fatigue and + weakness; no fever, no chills and no anorexia Eyes: no blind spots and no spots in vision Respiratory: no cough, no dyspnea, no dyspnea on exertion and no wheezing Cardiovascular: + chest pain; no radiating jaw, neck or arm pain, no palpitations, no lightheadedness and no edema Gastrointestinal: + nausea; no abdominal pain, no vomiting, no constipation and no diarrhea/loose stools Genitourinary: no dysuria, no difficulty urinating, no urinary frequency and no hematuria Musculoskeletal: + myalgia and + body aches; no back pain and no joint pain Integumentary: + non-healing lesions Physical Exam Physical Exam: General: Resting comfortably HEENT: NC/AT; PERRLA with EOMI; [place] conjunctiva, MMM. No erythema of posterior pharynx Neck: Supple and nontender Cardiac: Systolic murmur, +3/6 noted; RRR Lungs: CTA bilaterally Abdomen: Bowel normoactive X 4; Nontender to palpation Rectal: Deferred : Deferred Back: NO spinous tenderness Extremities: Warm. No edema present Neuro: No focal weakness Skin: No rash; did not remove dressing for bilat feet wounds to examine. Results & Data Vital Signs (Past 12 Hours) Vital Signs Temp Pulse Resp BP Pulse Ox 11/12/19 16:30 81 17 100 11/12/19 16:01 77 13 177/78 H 100 11/12/19 15:45 82 16 159/74 H 100 11/12/19 15:31 87 20 200/88 H 100 11/12/19 15:00 78 15 123/52 L 98 11/12/19 14:30 75 20 134/54 L 98 11/12/19 14:08 36.7 C 73 20 100/51 L 99 11/12/19 14:01 72 15 100/51 L 99 Laboratory Results 11/12/19 11/12/19 11/12/19 Range/Units 16:45 16:22 16:09 WBC (4.8-10.8) K/uL RBC (4.7-6.1) M/uL Hgb (14.0-18.0) g/dL Hct (42-52) % MCV (80-100) fL MCH (25-34) pg MCHC (32-36) g/dL RDW Std Deviation (36.4-46.3) fL RDW Coeff of Chan (11.5-14.5) % Plt Count (130-400) K/uL MPV (7.4-10.4) fL Immature Gran % (Auto) % Neut % (Auto) % Lymph % (Auto) % Logan % (Auto) % Eos % (Auto) % Baso % (Auto) % Immature Gran # (Auto) (0.00-0.02) K/uL Neut # (Auto) (1.4-6.5) K/uL Lymph # (Auto) (1.2-3.4) K/uL Logan # (Auto) (0.11-0.59) K/uL Eos # (Auto) (0-0.5) K/uL Baso # (Auto) (0-0.2) K/uL PT (9.0-12.0) Seconds INR (0.9-1.1) APTT (21.0-31.0) Seconds PTT Ratio Sodium (136-145) mmol/L Potassium (3.5-5.1) mmol/L Chloride (98-107) mmol/L Carbon Dioxide (21-32) mmol/L Anion Gap (3-11) BUN (7-18) mg/dl Creatinine (0.6-1.4) mg/dl Est Cr Clr Drug Dosing ml/min Est GFR ( Amer) Est GFR (Non-Af Amer) BUN/Creatinine Ratio (10-20) Glucose (70-99) mg/dl POC Glucose 480 H* (70-99) mg/dl Estimat Average Glucose Pending Hemoglobin A1c Pending Calcium (8.5-10.1) mg/dl Total Bilirubin (0.2-1) mg/dl AST (15-37) U/L ALT (12-78) U/L Alkaline Phosphatase (45-117) U/L Troponin I (0-0.045) ng/ml Total Protein (6.4-8.2) gm/dl Albumin (3.4-5.0) gm/dl Globulin (2.5-4.0) gm/dl Albumin/Globulin Ratio (0.9-2) Lipase (73-393) U/L Beta-Hydroxybutyric Acd (0.2-2.81) mg/dl Urine Color Yellow Urine Appearance Clear (Clear) Urine pH 5.5 (4.5-7.5) Ur Specific [place] 1.019 (1.000-1.030) Urine Protein Negative (Negative) Urine Glucose (UA) 3+ H (Negative) Urine Ketones 2+ H (Negative) Urine Blood Negative (Negative) Urine Nitrite Negative (Negative) Urine Bilirubin Negative (Negative) Urine Urobilinogen Negative (Negative) Ur Leukocyte Esterase Negative (Negative) 11/12/19 11/12/19 11/12/19 Range/Units 16:09 16:09 15:29 WBC (4.8-10.8) K/uL RBC (4.7-6.1) M/uL Hgb (14.0-18.0) g/dL Hct (42-52) % MCV (80-100) fL MCH (25-34) pg MCHC (32-36) g/dL RDW Std Deviation (36.4-46.3) fL RDW Coeff of Chan (11.5-14.5) % Plt Count (130-400) K/uL MPV (7.4-10.4) fL Immature Gran % (Auto) % Neut % (Auto) % Lymph % (Auto) % Logan % (Auto) % Eos % (Auto) % Baso % (Auto) % Immature Gran # (Auto) (0.00-0.02) K/uL Neut # (Auto) (1.4-6.5) K/uL Lymph # (Auto) (1.2-3.4) K/uL Logan # (Auto) (0.11-0.59) K/uL Eos # (Auto) (0-0.5) K/uL Baso # (Auto) (0-0.2) K/uL PT (9.0-12.0) Seconds INR (0.9-1.1) APTT (21.0-31.0) Seconds PTT Ratio Sodium 132 L (136-145) mmol/L Potassium 4.9 (3.5-5.1) mmol/L Chloride 101 (98-107) mmol/L Carbon Dioxide 16 L (21-32) mmol/L Anion Gap 15.0 H (3-11) BUN 29 H (7-18) mg/dl Creatinine 1.68 H (0.6-1.4) mg/dl Est Cr Clr Drug Dosing 50.7 ml/min Est GFR ( Amer) 49.7 Est GFR (Non-Af Amer) 42.9 BUN/Creatinine Ratio 17.1 (10-20) Glucose 513 H* (70-99) mg/dl POC Glucose 481 H* (70-99) mg/dl Estimat Average Glucose Hemoglobin A1c Calcium 9.0 (8.5-10.1) mg/dl Total Bilirubin (0.2-1) mg/dl AST (15-37) U/L ALT (12-78) U/L Alkaline Phosphatase (45-117) U/L Troponin I < 0.015 (0-0.045) ng/ml Total Protein (6.4-8.2) gm/dl Albumin (3.4-5.0) gm/dl Globulin (2.5-4.0) gm/dl Albumin/Globulin Ratio (0.9-2) Lipase (73-393) U/L Beta-Hydroxybutyric Acd 28.54 H (0.2-2.81) mg/dl Urine Color Urine Appearance (Clear) Urine pH (4.5-7.5) Ur Specific [place] (1.000-1.030) Urine Protein (Negative) Urine Glucose (UA) (Negative) Urine Ketones (Negative) Urine Blood (Negative) Urine Nitrite (Negative) Urine Bilirubin (Negative) Urine Urobilinogen (Negative) Ur Leukocyte Esterase (Negative) 11/12/19 11/12/19 11/12/19 Range/Units 14:00 14:00 14:00 WBC 11.88 H (4.8-10.8) K/uL RBC 3.93 L (4.7-6.1) M/uL Hgb 11.6 L (14.0-18.0) g/dL Hct 35.9 L (42-52) % MCV 91.3 (80-100) fL MCH 29.5 (25-34) pg MCHC 32.3 (32-36) g/dL RDW Std Deviation 44.0 (36.4-46.3) fL RDW Coeff of Chan 13.1 (11.5-14.5) % Plt Count 233 (130-400) K/uL MPV 10.9 H (7.4-10.4) fL Immature Gran % (Auto) 0.3 % Neut % (Auto) 84.5 % Lymph % (Auto) 7.7 % Logan % (Auto) 6.6 % Eos % (Auto) 0.5 % Baso % (Auto) 0.4 % Immature Gran # (Auto) 0.03 H (0.00-0.02) K/uL Neut # (Auto) 10.04 H (1.4-6.5) K/uL Lymph # (Auto) 0.91 L (1.2-3.4) K/uL Logan # (Auto) 0.79 H (0.11-0.59) K/uL Eos # (Auto) 0.06 (0-0.5) K/uL Baso # (Auto) 0.05 (0-0.2) K/uL PT 11.2 (9.0-12.0) Seconds INR 1.1 (0.9-1.1) APTT 24.3 (21.0-31.0) Seconds PTT Ratio 0.9 Sodium 131 L (136-145) mmol/L Potassium 4.8 (3.5-5.1) mmol/L Chloride 99 (98-107) mmol/L Carbon Dioxide 21 (21-32) mmol/L Anion Gap 11.0 (3-11) BUN 26 H (7-18) mg/dl Creatinine 1.55 H (0.6-1.4) mg/dl Est Cr Clr Drug Dosing 54.9 ml/min Est GFR ( Amer) 54.8 Est GFR (Non-Af Amer) 47.3 BUN/Creatinine Ratio 16.5 (10-20) Glucose 478 H* (70-99) mg/dl POC Glucose (70-99) mg/dl Estimat Average Glucose Hemoglobin A1c Calcium 8.9 (8.5-10.1) mg/dl Total Bilirubin 1.0 (0.2-1) mg/dl AST 20 (15-37) U/L ALT 24 (12-78) U/L Alkaline Phosphatase 148 H (45-117) U/L Troponin I < 0.015 (0-0.045) ng/ml Total Protein 7.7 (6.4-8.2) gm/dl Albumin 3.7 (3.4-5.0) gm/dl Globulin 4.0 (2.5-4.0) gm/dl Albumin/Globulin Ratio 0.9 (0.9-2) Lipase 50 L (73-393) U/L Beta-Hydroxybutyric Acd 16.38 H (0.2-2.81) mg/dl Urine Color Urine Appearance (Clear) Urine pH (4.5-7.5) Ur Specific [place] (1.000-1.030) Urine Protein (Negative) Urine Glucose (UA) (Negative) Urine Ketones (Negative) Urine Blood (Negative) Urine Nitrite (Negative) Urine Bilirubin (Negative) Urine Urobilinogen (Negative) Ur Leukocyte Esterase (Negative) Code Status & VTE Plan VTE Prophylaxis Plan VTE Prophylaxis will be ordered: Yes Supervising Physician Co-Signing Physician Notes I have seen and examined the patient with Rosey Kinsey PA-C and agree with her assessment and plan. PG Care Time/CCT Total # of Minutes Spent Total Time Spent with Patient: Total time spent is greater than 50% in coordination of care (as documented) at patient's floor/unit and/or counseling patient: Coding Level of Care Code 84963 Initial Inpt Care Lvl 3 Diagnoses DKA (diabetic ketoacidoses) E10.10 Diabetes mellitus complication detail: without coma Diabetes mellitus type: type 1 High anion gap metabolic acidosis E87.2 Nausea R11.0 Chest pain R07.9 Chest pain type: unspecified Coronary artery disease I25.10 Associated angina: without angina Coronary Disease-Associated Artery/Lesion type: [place] artery [place] vs. transplanted heart: [place] heart Peripheral vascular disease I73.9 Aorto-iliac disease I74.09 Acute renal failure N17.9 Diabetic foot ulcer associated with type 1 diabetes mellitus E10.621; L97.516 Diabetic foot ulcer location: unspecified part of foot Laterality: right Non-pressure ulcer stage: with bone involvement without evidence of necrosis S/P aortic valve replacement with bioprosthetic valve Z95.3 HTN (hypertension), benign I10 Hypothyroidism E03.9 Hypothyroidism type: acquired Dyslipidemia E78.5 GERD (gastroesophageal reflux disease) K21.9 Anemia D64.9 (1) DKA (diabetic ketoacidoses) Diabetes mellitus complication detail: without coma Diabetes mellitus type: type 1 Qualified Code(s): E10.10 - Type 1 diabetes mellitus with ketoacidosis without coma (2) Coronary artery disease Associated angina: without angina Coronary Disease-Associated Artery/Lesion type: [place] artery [place] vs. transplanted heart: [place] heart Qualified Code(s): I25.10 - Atherosclerotic heart disease of [place] coronary artery without angina pectoris (3) Hypothyroidism Hypothyroidism type: acquired Qualified Code(s): E03.9 - Hypothyroidism, unspecified (4) Diabetic foot ulcer associated with type 1 diabetes mellitus Diabetic foot ulcer location: unspecified part of foot Laterality: right Non-pressure ulcer stage: with bone involvement without evidence of necrosis Qualified Code(s): E10.621 - Type 1 diabetes mellitus with foot ulcer; L97.516 - Non-pressure chronic ulcer of other part of right foot with bone involvement without evidence of necrosis (5) Chest pain Chest pain type: unspecified Qualified Code(s): R07.9 - Chest pain, unspecified
--- NOTE | 2019-11-12 18:32 | Emergency Department Note ---
Entered by Frederick George acting as a scribe for Piyush Vidal M.D. History of Present Illness General Chief complaint: Nausea Time Seen by Provider: 11/12/19 15:24 Source: patient History of Present Illness Onset (ago): day(s) (today) Location: abdomen Pain Consistency: + other (persistent) Quality: + other (nausea) Associated symptoms: + other (Positive for diaphoresis, a "prickly" feeling all over, and being pale. Negative for vomit and abdominal pain.) The patient is a 64 year old male who presents to the emergency department with complaints of persistent nausea beginning today. The patient states that he became nauseous this morning. He notes that he then began to feel better, but he reports that he is now very diaphoretic and he states that that he is prickly all over. Per nurse, the patient is also paler than he was in triage. The patient notes that he has not vomited. He also denies any abdominal pain. He reports that he has diabetes, and he states that his sugar has been high today. He notes that he did not eat anything today. He reports that he took a dose of insulin prior to EMS arrival. The patient states that his blood sugar improved before becoming high again. He notes that he has had a CABG and a valve replacement. He reports that he takes aspirin and Plavix. Home Medications Home Medications Medication Instructions Recorded Confirmed Type aspirin 81 mg tablet,delayed 81 mg PO QAM tab 05/10/18 11/12/19 History release meclizine 25 mg tablet 25 mg PO BID PRN 07/26/18 11/12/19 History clopidogrel [Plavix] 1 tab PO QAM 11/09/18 11/12/19 History levothyroxine 150 mcg PO QAM 11/10/18 11/12/19 History metoprolol tartrate 12.5 mg PO BID 11/10/18 11/12/19 History blood sugar diagnostic #10 ea 04/10/19 11/05/19 History blood-glucose meter #1 ea 04/10/19 11/05/19 History insulin syringe-needle U-100 0.5 #10 ea 04/10/19 11/05/19 History mL 30 gauge x 5/16" pen needle, diabetic 32 gauge x #10 ea 04/10/19 11/05/19 History 5/32" triamcinolone acetonide 0.1 % 1 appln TOPICAL BID PRN #1 gm 06/10/19 11/12/19 History topical ointment insulin aspart U-100 [Novolog 1 unit SQ UD 08/13/19 11/12/19 History U-100 Insulin aspart] oxycodone-acetaminophen [Percocet] 1 tab PO TID PRN #6 tab 08/26/19 11/12/19 Rx tramadol [Ultram] 50 mg PO Q8H PRN 08/26/19 11/12/19 History sulfamethoxazole 800 1 tab PO BID PRN 14 Days #28 tab 10/01/19 11/12/19 Rx mg-trimethoprim 160 mg tablet amoxicillin 500 mg capsule 500 mg PO TID #90 cap 10/22/19 11/12/19 Rx pantoprazole 40 mg tablet,delayed 40 mg PO QAM #30 tab 10/22/19 11/12/19 Rx release atorvastatin 80 mg tablet 80 mg PO HS #30 tab 10/28/19 11/12/19 Rx Allergies Allergy/AdvReac Type Severity Reaction Status Date / Time No Known Allergies Allergy Unknown Verified 11/12/19 15:16 Past Med/Surg History Medical History Aortic stenosis s/p porcine valve 10/29/15 with CABG x 1 CAD (coronary artery disease) (Chronic) s/p CABG x 1 2015. Pt reports "small MS" 2014. Diabetic foot ulcer associated with type 1 diabetes mellitus (Chronic) Currently wearing full boot on R foot, diabetic shoe/slipper on L foot. Diabetic peripheral neuropathy (Acute) Dyslipidemia GERD (gastroesophageal reflux disease) Hypertension Hypothyroidism Myocardial Infarction MARCH 2015. "MILD MS" AFTER SURGERY PVD (peripheral vascular disease) (Chronic) s/p B/L iliac artery stents 2014, R common/external iliac 2017, R common femoral endarterectomy 11/2018 with bovine patch. Type 1 diabetes Surgical History H/O cataract extraction BILATERALLY H/O endarterectomy R common femoral 12/07/18 History of ankle surgery LEFT ANKLE PINNING. History of aortic valve replacement 2016 - [facility] History of colonoscopy History of coronary artery bypass graft 2016, AORTIC VALVE REPLACEMENT, CABG X1. [facility] History of esophagogastroduodenoscopy (EGD) History of herniorrhaphy UMBILICAL History of open reduction and internal fixation (ORIF) procedure left leg 1970s History of surgery 12/07/18 right common femoral endarterectomy with bovine pericardial angioplasty History of vitrectomy LEFT EYE S/P insertion of iliac artery stent B/L ILIAC STENT PLACEMENT BY DR. RUBIO IN 2014 Status post partial amputation of left foot (Chronic) currently in a walking cast on left leg Family History Brother Family history of diabetes mellitus Sister Family history of diabetes mellitus Mother Family history of diabetes mellitus Grandmother (Maternal) Family history of diabetes mellitus Uncle Family hx of colon cancer Father Family history of esophageal cancer Other No family history of adverse response to anesthesia Social History Preferred Language: Bangladeshi Communication Ability: Effective Straightening Machine Feeder Required: No Beliefs That Will Affect Care: None marital status: Current Living Situation: Other Current Living Situation Comment: lives with sister Feels Safe at Home: Yes Smoking Status: Former smoker Tobacco Type: cigarettes ; Cigarettes Per Day: QUIT 15 YEARS AGO. HX OF 2 PPD "WASTED A LOT" ; Second Hand Exposure: Yes (ON OCC) ; Hx Alcohol Use: Yes Alcohol type: beer Hx Substance Use: No Review of Systems See HPI for pertinent positives & negatives. and A total of 10 systems reviewed and were otherwise negative Physical Exam Vital Signs Vital Signs - 24 hr 11/12/19 14:01 11/12/19 14:08 11/12/19 14:30 Temperature 36.7 C Temperature Source Oral Pulse Rate 72 73 75 Pulse Rate from SpO2 Sensor 72 73 Respiratory Rate 15 20 20 Blood Pressure 100/51 L 100/51 L 134/54 L Blood Pressure Mean 69 67 80 Pulse Oximetry 99 99 98 Oxygen Delivery Method Room Air Room Air Room Air Sepsis Recent Fever Within 48 Hours No Sepsis Action Taken by Nursing No Action Required 11/12/19 14:40 11/12/19 15:00 11/12/19 15:31 Temperature Temperature Source Pulse Rate 78 87 Pulse Rate from SpO2 Sensor 77 87 Respiratory Rate 15 20 Blood Pressure 123/52 L 200/88 H Blood Pressure Mean 82 135 Pulse Oximetry 98 100 Oxygen Delivery Method Room Air Room Air Room Air Sepsis Recent Fever Within 48 Hours Sepsis Action Taken by Nursing 11/12/19 15:45 11/12/19 16:01 11/12/19 16:30 Temperature Temperature Source Pulse Rate 82 77 81 Pulse Rate from SpO2 Sensor 84 78 81 Respiratory Rate 16 13 17 Blood Pressure 159/74 H 177/78 H Blood Pressure Mean 87 130 Pulse Oximetry 100 100 100 Oxygen Delivery Method Room Air Room Air Room Air Sepsis Recent Fever Within 48 Hours Sepsis Action Taken by Nursing GENERAL: Awake, alert, fatigued-appearing on bed HENT: Normocephalic, atraumatic. EYES: Normal conjunctiva. Sclera non-icteric. RESPIRATORY: Clear to auscultation. No wheezes. Normal respiratory effort. CARDIAC: Normal rate. Normal rhythm. Extremities warm and well perfused. GI: Soft, non-distended. No tenderness to palpation. No rebound or guarding. No masses. RLQ insulin pump in place. RECTAL: Deferred. MUSCULOSKELETAL: Atraumatic. Chest examination reveals no tenderness. LOWER EXTREMITIES: Calves are equal size bilaterally and non-tender. No edema NEURO: Normal sensorium. No sensory or motor deficits noted. No facial droop. SKIN: Warm. No rash or jaundice noted. Diaphoretic. Course Course 1529: The patient was evaluated in room A10. A complete history and physical exam was performed. 1624: Upon reevaluation, the patient is stable. I discussed the findings and the treatment plan with the patient. He expresses agreement and understanding. I spoke with Dr. Maria of the [facility]. The patient will be evaluated for further management. 1655: I also discussed the patient's case with Rosey Salinas PA-C, [facility]. Consultations Consultation #1: I reviewed the patient's [facility] [place] [facility] She will evaluate the patient for further management. Time: 16:24 Consultation #2: I also discussed the patient's case with Rosey Salmeron, [facility]. Time: 16:55 Administered Medications Insulin Human Regular 250 (units/ Sodium Chloride) 250 mls @ 9 mls/hr IV .Q24H [facility]; Protocol Stop: 12/12/19 15:59 Last Admin: 11/12/19 16:32 Dose: 9 units/hr, 9 mls/hr Documented by: [id number] Cosigned by: [id number] Sodium Chloride (Nss 1000ml) 1,000 mls @ 125 mls/hr IV .Q8H LIZZY Stop: 12/12/19 16:44 Last Admin: 11/12/19 17:33 Dose: 125 mls/hr Documented by: [id number] Discontinued Medications Aspirin (Aspirin Chew) 243 mg PO NOW STA Stop: 11/12/19 15:47 Last Admin: 11/12/19 15:52 Dose: 243 mg Documented by: [id number] Sodium Chloride (Nss 1000ml) 1,000 mls @ 999 mls/hr IV .Q1H1M ONE Stop: 11/12/19 16:43 Last Infusion: 11/12/19 16:30 Dose: 0 mls/hr Documented by: [id number] Admin: 11/12/19 15:52 Dose: 999 mls/hr Documented by: [id number] Ondansetron HCl (Zofran) 4 mg IV NOW STA Stop: 11/12/19 15:44 Last Admin: 11/12/19 15:52 Dose: 4 mg Documented by: [id number] Critical Care Time Critical Care Time: Yes Total Critical Care Time: 42 I have personally spent 42 minutes of critical care time in the direct manageme nt of this patient. This includes bedside care, interpretation of diagnostic studies, and testing, discussion with consultants, patient, and family members, and other required patient management activities. This 42 minutes is in excess of all separately billable procedures. Medical Decision Making Differential Diagnosis Differential diagnoses includes but is not limited to acute coronary syndrome, myocardial infarction, pericarditis, pulmonary embolus, aortic dissection, pneumonia, pneumothorax, musculoskeletal, shingles, esophageal, and DKA. Medical Records Attestation: I reviewed the patient's medical records. Home Medications Current Medication List: was personally reviewed by me Laboratory Data Attestation: I reviewed the patient's lab results. Result diagrams: 11/12/19 14:00 11/12/19 16:09 Lab Results 11/12/19 11/12/19 11/12/19 Range/Units 14:00 14:00 14:00 WBC 11.88 H (4.8-10.8) K/uL RBC 3.93 L (4.7-6.1) M/uL Hgb 11.6 L (14.0-18.0) g/dL Hct 35.9 L (42-52) % MCV 91.3 (80-100) fL MCH 29.5 (25-34) pg MCHC 32.3 (32-36) g/dL RDW Std Deviation 44.0 (36.4-46.3) fL RDW Coeff of Chan 13.1 (11.5-14.5) % Plt Count 233 (130-400) K/uL MPV 10.9 H (7.4-10.4) fL Immature Gran % (Auto) 0.3 % Neut % (Auto) 84.5 % Lymph % (Auto) 7.7 % Mingo % (Auto) 6.6 % Eos % (Auto) 0.5 % Baso % (Auto) 0.4 % Immature Gran # (Auto) 0.03 H (0.00-0.02) K/uL Neut # (Auto) 10.04 H (1.4-6.5) K/uL Lymph # (Auto) 0.91 L (1.2-3.4) K/uL Mingo # (Auto) 0.79 H (0.11-0.59) K/uL Eos # (Auto) 0.06 (0-0.5) K/uL Baso # (Auto) 0.05 (0-0.2) K/uL PT 11.2 (9.0-12.0) Seconds INR 1.1 (0.9-1.1) APTT 24.3 (21.0-31.0) Seconds PTT Ratio 0.9 Sodium 131 L (136-145) mmol/L Potassium 4.8 (3.5-5.1) mmol/L Chloride 99 (98-107) mmol/L Carbon Dioxide 21 (21-32) mmol/L Anion Gap 11.0 (3-11) BUN 26 H (7-18) mg/dl Creatinine 1.55 H (0.6-1.4) mg/dl Est Cr Clr Drug Dosing 54.9 ml/min Est GFR ( Amer) 54.8 Est GFR (Non-Af Amer) 47.3 BUN/Creatinine Ratio 16.5 (10-20) Glucose 478 H* (70-99) mg/dl POC Glucose (70-99) mg/dl Calcium 8.9 (8.5-10.1) mg/dl Total Bilirubin 1.0 (0.2-1) mg/dl AST 20 (15-37) U/L ALT 24 (12-78) U/L Alkaline Phosphatase 148 H (45-117) U/L Troponin I < 0.015 (0-0.045) ng/ml Total Protein 7.7 (6.4-8.2) gm/dl Albumin 3.7 (3.4-5.0) gm/dl Globulin 4.0 (2.5-4.0) gm/dl Albumin/Globulin Ratio 0.9 (0.9-2) Lipase 50 L (73-393) U/L Beta-Hydroxybutyric Acd 16.38 H (0.2-2.81) mg/dl Urine Color Urine Appearance (Clear) Urine pH (4.5-7.5) Ur Specific Gerlaw (1.000-1.030) Urine Protein (Negative) Urine Glucose (UA) (Negative) Urine Ketones (Negative) Urine Blood (Negative) Urine Nitrite (Negative) Urine Bilirubin (Negative) Urine Urobilinogen (Negative) Ur Leukocyte Esterase (Negative) 11/12/19 11/12/19 11/12/19 Range/Units 15:29 16:09 16:09 WBC (4.8-10.8) K/uL RBC (4.7-6.1) M/uL Hgb (14.0-18.0) g/dL Hct (42-52) % MCV (80-100) fL MCH (25-34) pg MCHC (32-36) g/dL RDW Std Deviation (36.4-46.3) fL RDW Coeff of Chan (11.5-14.5) % Plt Count (130-400) K/uL MPV (7.4-10.4) fL Immature Gran % (Auto) % Neut % (Auto) % Lymph % (Auto) % Mingo % (Auto) % Eos % (Auto) % Baso % (Auto) % Immature Gran # (Auto) (0.00-0.02) K/uL Neut # (Auto) (1.4-6.5) K/uL Lymph # (Auto) (1.2-3.4) K/uL Mingo # (Auto) (0.11-0.59) K/uL Eos # (Auto) (0-0.5) K/uL Baso # (Auto) (0-0.2) K/uL PT (9.0-12.0) Seconds INR (0.9-1.1) APTT (21.0-31.0) Seconds PTT Ratio Sodium 132 L (136-145) mmol/L Potassium 4.9 (3.5-5.1) mmol/L Chloride 101 (98-107) mmol/L Carbon Dioxide 16 L (21-32) mmol/L Anion Gap 15.0 H (3-11) BUN 29 H (7-18) mg/dl Creatinine 1.68 H (0.6-1.4) mg/dl Est Cr Clr Drug Dosing 50.7 ml/min Est GFR ( Amer) 49.7 Est GFR (Non-Af Amer) 42.9 BUN/Creatinine Ratio 17.1 (10-20) Glucose 513 H* (70-99) mg/dl POC Glucose 481 H* (70-99) mg/dl Calcium 9.0 (8.5-10.1) mg/dl Total Bilirubin (0.2-1) mg/dl AST (15-37) U/L ALT (12-78) U/L Alkaline Phosphatase (45-117) U/L Troponin I < 0.015 (0-0.045) ng/ml Total Protein (6.4-8.2) gm/dl Albumin (3.4-5.0) gm/dl Globulin (2.5-4.0) gm/dl Albumin/Globulin Ratio (0.9-2) Lipase (73-393) U/L Beta-Hydroxybutyric Acd 28.54 H (0.2-2.81) mg/dl Urine Color Urine Appearance (Clear) Urine pH (4.5-7.5) Ur Specific Gerlaw (1.000-1.030) Urine Protein (Negative) Urine Glucose (UA) (Negative) Urine Ketones (Negative) Urine Blood (Negative) Urine Nitrite (Negative) Urine Bilirubin (Negative) Urine Urobilinogen (Negative) Ur Leukocyte Esterase (Negative) 11/12/19 11/12/19 11/12/19 Range/Units 16:22 16:45 17:28 WBC (4.8-10.8) K/uL RBC (4.7-6.1) M/uL Hgb (14.0-18.0) g/dL Hct (42-52) % MCV (80-100) fL MCH (25-34) pg MCHC (32-36) g/dL RDW Std Deviation (36.4-46.3) fL RDW Coeff of Chan (11.5-14.5) % Plt Count (130-400) K/uL MPV (7.4-10.4) fL Immature Gran % (Auto) % Neut % (Auto) % Lymph % (Auto) % Mingo % (Auto) % Eos % (Auto) % Baso % (Auto) % Immature Gran # (Auto) (0.00-0.02) K/uL Neut # (Auto) (1.4-6.5) K/uL Lymph # (Auto) (1.2-3.4) K/uL Mingo # (Auto) (0.11-0.59) K/uL Eos # (Auto) (0-0.5) K/uL Baso # (Auto) (0-0.2) K/uL PT (9.0-12.0) Seconds INR (0.9-1.1) APTT (21.0-31.0) Seconds PTT Ratio Sodium (136-145) mmol/L Potassium (3.5-5.1) mmol/L Chloride (98-107) mmol/L Carbon Dioxide (21-32) mmol/L Anion Gap (3-11) BUN (7-18) mg/dl Creatinine (0.6-1.4) mg/dl Est Cr Clr Drug Dosing ml/min Est GFR ( Amer) Est GFR (Non-Af Amer) BUN/Creatinine Ratio (10-20) Glucose (70-99) mg/dl POC Glucose 480 H* 464 H* (70-99) mg/dl Calcium (8.5-10.1) mg/dl Total Bilirubin (0.2-1) mg/dl AST (15-37) U/L ALT (12-78) U/L Alkaline Phosphatase (45-117) U/L Troponin I (0-0.045) ng/ml Total Protein (6.4-8.2) gm/dl Albumin (3.4-5.0) gm/dl Globulin (2.5-4.0) gm/dl Albumin/Globulin Ratio (0.9-2) Lipase (73-393) U/L Beta-Hydroxybutyric Acd (0.2-2.81) mg/dl Urine Color Yellow Urine Appearance Clear (Clear) Urine pH 5.5 (4.5-7.5) Ur Specific Gerlaw 1.019 (1.000-1.030) Urine Protein Negative (Negative) Urine Glucose (UA) 3+ H (Negative) Urine Ketones 2+ H (Negative) Urine Blood Negative (Negative) Urine Nitrite Negative (Negative) Urine Bilirubin Negative (Negative) Urine Urobilinogen Negative (Negative) Ur Leukocyte Esterase Negative (Negative) 11/12/19 Range/Units 18:28 WBC (4.8-10.8) K/uL RBC (4.7-6.1) M/uL Hgb (14.0-18.0) g/dL Hct (42-52) % MCV (80-100) fL MCH (25-34) pg MCHC (32-36) g/dL RDW Std Deviation (36.4-46.3) fL RDW Coeff of Chan (11.5-14.5) % Plt Count (130-400) K/uL MPV (7.4-10.4) fL Immature Gran % (Auto) % Neut % (Auto) % Lymph % (Auto) % Mingo % (Auto) % Eos % (Auto) % Baso % (Auto) % Immature Gran # (Auto) (0.00-0.02) K/uL Neut # (Auto) (1.4-6.5) K/uL Lymph # (Auto) (1.2-3.4) K/uL Mingo # (Auto) (0.11-0.59) K/uL Eos # (Auto) (0-0.5) K/uL Baso # (Auto) (0-0.2) K/uL PT (9.0-12.0) Seconds INR (0.9-1.1) APTT (21.0-31.0) Seconds PTT Ratio Sodium (136-145) mmol/L Potassium (3.5-5.1) mmol/L Chloride (98-107) mmol/L Carbon Dioxide (21-32) mmol/L Anion Gap (3-11) BUN (7-18) mg/dl Creatinine (0.6-1.4) mg/dl Est Cr Clr Drug Dosing ml/min Est GFR ( Amer) Est GFR (Non-Af Amer) BUN/Creatinine Ratio (10-20) Glucose (70-99) mg/dl POC Glucose 392 H* (70-99) mg/dl Calcium (8.5-10.1) mg/dl Total Bilirubin (0.2-1) mg/dl AST (15-37) U/L ALT (12-78) U/L Alkaline Phosphatase (45-117) U/L Troponin I (0-0.045) ng/ml Total Protein (6.4-8.2) gm/dl Albumin (3.4-5.0) gm/dl Globulin (2.5-4.0) gm/dl Albumin/Globulin Ratio (0.9-2) Lipase (73-393) U/L Beta-Hydroxybutyric Acd (0.2-2.81) mg/dl Urine Color Urine Appearance (Clear) Urine pH (4.5-7.5) Ur Specific Gerlaw (1.000-1.030) Urine Protein (Negative) Urine Glucose (UA) (Negative) Urine Ketones (Negative) Urine Blood (Negative) Urine Nitrite (Negative) Urine Bilirubin (Negative) Urine Urobilinogen (Negative) Ur Leukocyte Esterase (Negative) Imaging Data Radiologist's Impression: Radiology results as stated below per my review and the radiologist's interpretation: XR chest 1V portable FINDINGS: Median sternotomy wires and prosthetic valve noted, likely prosthetic aortic valve and cardiac silhouette normal in size. Chronic blunting of the right costophrenic angle. No focal lung opacity. No large pneumothorax. Degenerative changes of the thoracic spine. IMPRESSION: 1. No acute cardiopulmonary disease. ACT 112: Negative or not required by law. Electronically signed by: Xander Forde M.D. 11/12/2019 2:57 PM ECG Data Attestation: I personally reviewed and interpreted this ECG as follows: Indication: + nausea Rate (beats per minute): 73 Rhythm: + normal sinus ECG Intervals/blocks: + Right Bundle branch block ECG ST segments: no ST depression and no ST elevation ECG Findings: no PVCs Additional Comments: QTC 506 which is mildly prolonged. EKG #2: Performed at 1558. Sinus tachycardia, 111, RBBB, PVC, no ST elevation. Blood Pressure Blood Pressure Findings: Elevated blood pressure Blood Pressure Disposition: further management by hospitalist ANTONIO Mistry An order was placed for continuous cardiac monitoring. The monitor shows a rate of 82 with normal sinus rhythm. Patient is a 64-year-old gentleman history of diabetes, cardiac disease, hypertension, aortic valve replacement presenting today with complaints of some indigestion and nausea starting around noon today. States he fell a bit similar to when he had a mild heart attack about 5 years ago. Denies any trauma. No vomiting. Denies real abdominal pain. Intermittently felt a bit diaphoretic and sweaty. States he has a diffuse prickly feeling. Currently on amoxicillin for infection of his left foot. Patient is compliant with his home Plavix and aspirin. Laboratory studies show a nonspecific slight leukocytosis of 11.8. Patient has evidence of a very mild RAIN with creatinine 1.55 and significantly elevated glucose of 478. Anion gap of 11 and bicarb of 21 concerning for impending DKA. Evidence of hepatitis or pancreatitis. Fairly benign abdomen. Does not seem that consistent with PE and I doubt dissection. Concerned this could represent cardiac disease and troponins negative. EKG and several additional EKGs showed no acute ST segment elevation MS. Repeat BMP and tropo piter was ordered.A insulin drip was started without bolus and IV fluids were given. Zofran for symptoms and full dose aspirin. Discussed with the hospitalist for further evaluation here as this is either early DKA versus a component of ACS developing. Patient's home insulin pump was discontinued. On repeat laboratory studies here second troponin was negative. Glucose just prior to the insulin drip being started still rising slightly with now with katie evidence of diabetic ketoacidosis with anion gap, decreased bicarb, and ketones in the urine. Impression & Plan Chest pain, Nausea, DKA (diabetic ketoacidoses) Discharge Plan Visit Data Chief Complaint: Nausea ED Provider: Piyush Vidal Discharge Problem: Chest pain, Nausea, DKA (diabetic ketoacidoses) Patient Disposition: Being Evaluated by Hospitalist Forms Stand Alone Forms: [facility] Prescriptions Prescriptions: No Action aspirin 81 mg tablet,delayed release (DR/EC) 81 mg PO QAM RF: 0 meclizine 25 mg tablet 25 mg PO BID PRN (Reason: Dizziness) RF: 0 pantoprazole [Protonix] 40 mg tablet,delayed release (DR/EC) 40 mg PO QAM Qty: 30 RF: 5 atorvastatin [Lipitor] 80 mg tablet 80 mg PO HS Qty: 30 RF: 11 sulfamethoxazole-trimethoprim [Bactrim DS] 800-160 mg tablet 1 tab PO BID PRN (Reason: infected wound) 14 Days Qty: 28 RF: 6 triamcinolone acetonide 0.1 % ointment 1 appln topical BID PRN (Reason: skin ) Qty: 1 RF: 0 (DME) pen needle, diabetic [BD Ultra-Fine Kady Pen Needle] 32 gauge x 5/32" needle See Dose Instructions .ROUTE .MEDSUPPLY Qty: 10 RF: 0 (DME) insulin syringe-needle U-100 [BD SafetyGlide Insulin Syringe] 0.5 mL 30 gauge x 5/16" syringe See Dose Instructions .ROUTE .MEDSUPPLY Qty: 10 RF: 0 (DME) blood sugar diagnostic strip See Dose Instructions .ROUTE .MEDSUPPLY Qty: 10 RF: 0 (DME) blood-glucose meter kit See Dose Instructions .ROUTE .MEDSUPPLY Qty: 1 RF: 0 amoxicillin 500 mg capsule 500 mg PO TID Qty: 90 RF: 0 levothyroxine 150 mcg tablet 150 mcg PO QAM RF: 0 metoprolol tartrate 25 mg tablet 12.5 mg PO BID RF: 0 clopidogrel [Plavix] 75 mg Tablet 1 tab PO QAM RF: 0 insulin aspart U-100 [Novolog U-100 Insulin aspart] 100 unit/mL solution 1 unit SQ UD RF: 0 tramadol [Ultram] 50 mg tablet 50 mg PO Q8H PRN (Reason: pain) RF: 0 oxycodone-acetaminophen [Percocet] 5-325 mg tablet 1 tab PO TID PRN (Reason: pain) Qty: 6 RF: 0 Referrals Referrals: Enio Richards III, MD [Primary Care Provider] - Discharge Problem: Chest pain Qualifiers: Chest pain type: unspecified Qualified Code(s): R07.9 - Chest pain, unspecified DKA (diabetic ketoacidoses) Qualifiers: Diabetes mellitus type: type 1 Diabetes mellitus complication detail: without coma Qualified Code(s): E10.10 - Type 1 diabetes mellitus with ketoacidosis without coma The scribe's documentation has been prepared under my direction and personally reviewed by me in its entirety. I confirm that the note above accurately reflects all work, treatment, procedures, and medical decision making performed by me.
[2019-11-12] MEDS ORDERED: INFLUENZA VIRUS QUAD VACCINE 0.5 ML SYR IM ONE (19:17)
[2019-11-12] MEDS ORDERED: INFLUENZA ADMINISTRATION CHARGE ONE (19:17)
[2019-11-12] MEDS ORDERED: OXYCODONE/ACETAMINOPHEN 5mg/325mg TAB PO PRN (19:54)
[2019-11-12] MEDS ORDERED: ACETAMINOPHEN 325 MG TAB PO PRN (19:54)
[2019-11-12] MEDS ORDERED: TRAMADOL HCL 50 MG TABLET PO PRN (19:54)
[2019-11-12] MEDS ORDERED: PROCHLORPERAZINE 10 MG in SYRINGE 8 ML IV PRN (19:54)
[2019-11-12] MEDS ORDERED: POLYETHYLENE (MIRALAX) 17 GM PACK PO PRN (19:54)
[2019-11-12] MEDS: INSULIN ASPART 100 UNITS/ML 3 ML PEN SC SCH ×2 (20:39→20:44)
[2019-11-12] MEDS: ATORVASTATIN 40 MG TAB PO SCH (20:40)
[2019-11-12] MEDS: METOPROLOL TARTRATE 25 MG TAB PO SCH (20:42)
[2019-11-12] MEDS: HEPARIN SOD 5,000 UNIT/0.5 ML VIAL SQ SCH (20:42)
[2019-11-12] MEDS: AMOXICILLIN 500 MG CAP PO SCH (20:43)
[2019-11-12] MEDS: SULFAMETHOXAZOLE/TRIMETHOPRIM DS 800/160MG TAB PO SCH (20:43)
[2019-11-12] MEDS ORDERED: PHARMACY GLYCEMIC MGMT CONSULT PRN (22:51)
[2019-11-13] MEDS ORDERED: INSULIN ASPART 100 UNITS/ML 3 ML PEN SC ONE ×2 (00:15→04:00)
[2019-11-13 00:42] LABS: BUN Creatinine Ratio 22.1 (10-20); Calcium 8.9 mg/dl (8.5-10.1); Creatinine Clr Calc Pharmacy 67.3 ml/min; Est GFR (African American) 70.4; Est GFR (Non-African American) 60.7; Potassium 4.1 mmol/L (3.5-5.1)
[2019-11-13] MEDS ORDERED: DKA GOAL RANGE 150-250 mg/dl ONE (01:01)
[2019-11-13] MEDS ORDERED: D5W AND 1/2NSS + 20MEQ KCL 20 MEQ/1,000 ML BAG IV SCH (01:15)
[2019-11-13] MEDS ORDERED: PENDING D5 1/2NS+20mEq KCL IVF SCH (01:15)
[2019-11-13] MEDS ORDERED: INSULIN GLARGINE SOLOSTAR 100 UNITS/ML 3 ML PEN SC ONE ×2 (01:15→09:45)
[2019-11-13] MEDS ORDERED: PENDING 1/2NSS+20mEq KCL IVF SCH (01:15)
[2019-11-13] MEDS: SODIUM CHLORIDE 0.9% 1000ML 1,000 ML IV SCH (01:21)
[2019-11-13 01:51] LABS: BUN Creatinine Ratio 21.2 (10-20); Calcium 8.7 mg/dl (8.5-10.1); Creatinine Clr Calc Pharmacy 63.3 ml/min; Est GFR (African American) 65.3; Est GFR (Non-African American) 56.4; Phosphorus 3.2 mg/dl (2.5-4.9); Potassium 4.2 mmol/L (3.5-5.1)
[2019-11-13 04:07] LABS: Hematocrit (blood only) 32.5 % (42-52); Hemoglobin 10.5 g/dL (14.0-18.0); Mean Corpuscular Hgb Conc 32.3 g/dL (32-36); Mean Corpuscular Volume 89.8 fL (80-100); Mean Platelet Volume 10.3 fL (7.4-10.4); Platelet Count 214 K/uL (130-400); RDW Coefficient of Variation 13.1 % (11.5-14.5); RDW Standard Deviation 43.1 fL (36.4-46.3); Red Blood Count 3.62 M/uL (4.7-6.1); White Blood Count 9.85 K/uL (4.8-10.8)
[2019-11-13] MEDS: SODIUM CHLOR 0.45% + 20MEQ KCL 20 MEQ/1,000 ML BAG IV SCH ×2 (04:09→12:34)
[2019-11-13] MEDS: INSULIN ASPART 100 UNITS/ML 3 ML PEN SC SCH ×5 (04:09→20:39)
[2019-11-13 04:28] LABS: Albumin Level 2.9 gm/dl (3.4-5.0); BUN Creatinine Ratio 21.8 (10-20); Calcium 8.3 mg/dl (8.5-10.1); Creatinine Clr Calc Pharmacy 68.4 ml/min; Est GFR (African American) 71.8; Est GFR (Non-African American) 61.9; Potassium 4.3 mmol/L (3.5-5.1)
[2019-11-13 04:36] LABS: Albumin Globulin Ratio 0.9 (0.9-2); Bilirubin,Total 0.8 mg/dl (0.2-1); Globulin 3.4 gm/dl (2.5-4.0); Total Protein 6.3 gm/dl (6.4-8.2); Troponin I 0.316 ng/ml (0-0.045)
[2019-11-13] MEDS: LEVOTHYROXINE SODIUM 150 MCG TABLET PO SCH (05:42)
[2019-11-13 06:01] LABS: BUN Creatinine Ratio 20.1 (10-20); Calcium 8.6 mg/dl (8.5-10.1); Creatinine Clr Calc Pharmacy 63.3 ml/min; Est GFR (African American) 65.3; Est GFR (Non-African American) 56.4; Potassium 4.2 mmol/L (3.5-5.1)
[2019-11-13 06:02] LABS: Phosphorus 2.3 mg/dl (2.5-4.9)
[2019-11-13 06:16] LABS: Estimated Average Glucose 243 mg/dl; Hemoglobin A1C 10.1 % (4.5-5.6)
[2019-11-13] MEDS: ASPIRIN 81 MG ECTAB PO SCH (07:48)
[2019-11-13] MEDS: AMOXICILLIN 500 MG CAP PO SCH ×3 (07:48→20:37)
[2019-11-13] MEDS: METOPROLOL TARTRATE 25 MG TAB PO SCH ×2 (07:48→20:38)
[2019-11-13] MEDS: SULFAMETHOXAZOLE/TRIMETHOPRIM DS 800/160MG TAB PO SCH ×2 (07:48→20:36)
[2019-11-13] MEDS: CLOPIDOGREL BISULFATE 75 MG TAB PO SCH (07:48)
[2019-11-13] MEDS: PANTOprazole 40 MG TAB PO SCH (07:49)
[2019-11-13] MEDS: HEPARIN SOD 5,000 UNIT/0.5 ML VIAL SQ SCH ×2 (08:47→20:38)
[2019-11-13 09:41] LABS: BUN Creatinine Ratio 19.5 (10-20); Calcium 8.7 mg/dl (8.5-10.1); Creatinine Clr Calc Pharmacy 66.2 ml/min; Est GFR (African American) 69.1; Est GFR (Non-African American) 59.6
[2019-11-13 09:42] LABS: Phosphorus 2.4 mg/dl (2.5-4.9)
--- NOTE | 2019-11-13 10:39 | Cardiology Consultation ---
Date of Consultation November 13, 2019 Assessment & Plan (1) Elevated troponin I level: Mr. Chowdhury is a pleasant 64-year-old gentleman with a history significant for aortic stenosis s/p bioprosthetic 25 mm Hill II Porcine AVR 10/29/2015, CAD s/p CABG x 1 vessel (SVG to PDA) 10/29/2015, peripheral arterial disease s/p stenting, hyperlipidemia, hypertension, and diabetes. Patient also has a significant h/o CT in 2015 following vascular intervention with Dr. Rubio. He presented to the emergency department on 11/12/2019 with complaints of persistent nausea and diaphoresis which started at approximately 11:45 am and lasted approximately 4 to 5 hours -- and these symptoms were reminiscent of his prior CT. He also had uncontrolled hyperglycemia and evidence of DKA. Throughout his stay he saw a rise in troponin levels and reports that the symptoms he experienced were similar to the symptoms he experienced with his previous CT in 2014. Subsequent troponin levels revealed elevated levels: -- 11/12/2019 at 14:00 - troponin negative -- 11/12/2019 at 16:00 - troponin negative -- 11/12/2019 at 21:50 - troponin 0.150 -- 11/13/2019 at 3:48 - troponin 0.316 We recommend the following: -- Obtain Echocardiogram to assess for any wall motion abnormalities or other evidence of infarction. -- Pending results of Echocardiogram and if any wall motion abnormalities present would consider cardiac catheterization -- Continue Aspirin 81 mg daily. -- Continue Atorvastatin 80 mg daily. -- Continue Plavix 75 mg daily. -- Continue Metoprolol Tartrate 12.5 mg b.i.d.. We will continue to monitor his condition while we wait for the results of the echocardiogram. (2) Coronary artery disease: -- As outlined above. (3) S/P AVR: -- Echocardiogram is ordered. BENITO Ladd-Taiwo History of Present Illness Reason for Consultation: elevated troponin Requesting Physician: Lazaro Velasquez Attending Physician: Joselo Downey MD History of Present Illness Mr. Chowdhury is a pleasant 64-year-old gentleman with a history significant for aortic stenosis s/p bioprosthetic 25 mm Hill II Porcine AVR 10/29/2015, CAD s/p CABG x 1 vessel (SVG to PDA) 10/29/2015, peripheral arterial disease s/p stenting, hyperlipidemia, hypertension, and diabetes. Patient also has a significant h/o CT in 2015 following vascular intervention with Dr. Rubio. He presented to the emergency department on 11/12/2019 with complaints of persistent nausea and diaphoresis which started at approximately 11:45 -- and these symptoms were reminiscent of his prior CT. The patient reports that he became nauseous in the morning of 11/12/2019 and as he was starting to feel better he began to experience diaphoresis and a sensation of feeling "prickly" all over. Per nurse, the patient was pale in the room compared to when he was seen in triage. Pt denies vomiting and abdominal pain. He has a 40 year history with Type 1 Diabetes Mellitus and states that his sugar has been high that day. He denied eating anything throughout the day and that he took another dose of insulin prior to EMS arrival. His blood sugar was measured at 478 in the ED. He has an insulin pump but does not think pump was functioning properly at home to administer insulin correctly. He denies headache, vision changes, shortness of breath, vomiting, abd pain, diarrhea or constipation, dysuria or hematuria, urinary frequency, chest pain, syncope, near-syncope, edema, and palpitations. He does report that these symptoms were similar to the symptoms he experienced prior to his CT in 2015. ER course: Labs c/w diabetic ketoacidosis. Insulin drip and IV fluids were started. Zofran was administered for nausea. EKG showed known RBBB, no significant ST-T wave changes. CXR normal. Initial troponin was negative. Pt was admitted for treatment of DKA and further cardiac work up. Subsequent troponin levels revealed elevated levels: -- 11/12/2019 at 14:00 - troponin negative -- 11/12/2019 at 16:00 - troponin negative -- 11/12/2019 at 21:50 - troponin 0.150 -- 11/13/2019 at 3:48 - troponin 0.316 He admits that he does very little walking and is currently seated in a wheelchair. He has been advised to avoid walking while his foot wounds are healing, by other providers. Pt reports to have started feeling better once he was started on the insulin drip and his blood glucose levels started returning to normal. Today blood glucose level measured at 157 mg/dL. He currently denies chest pain, shortness of breath, syncope, near-syncope, palpitations, or bleeding such as melena, hematochezia, or hematuria. He has had the following studies: 1. Echocardiogram 11/05/2018 -- Borderline concentric Left Ventricular Hypertrophy -- Left ventricular systolic function is normal -- Left atrium is mildly dilated -- Porcine Aortic valve appreciated -- Right ventricular systolic pressure is normal -- EF = 55-60% 2. Cardiac catheterization 10/12/2015: -- Distal LMCA 20%. -- Proximal LAD 20%. -- Mid LAD 50% at bifurcation of D2. -- Dominant RCA. Ostial RCA 70% with ventricularization of atrial waveform. -- Heavily calcified ostial RCA. Mid RCA 30%. Distal RCA 40%. 3. Aortic valve replacement and CABG x1 at [facility] [place]/29/2015: -- AVR with 25 mm Hill II porcine bioprosthesis. -- SVG to PDA. (Right LE vein harvest). -- Was taken back to OR for nonfunctioning chest tube drains. 4. Echo 01/08/2016: -- Normal LV size and systolic function. -- EF 65-70%. -- No definite regional wall motion abnormalities. -- Mild LVH. -- Appropriately functioning bioprosthetic aortic valve without significant regurgitation. -- Pericardial effusion (Trivial) has nearly resolved compared to 11/10/15. 5. Echo 12/24/14: -- Normal LV size, systolic function. -- Normal wall motion in visualized areas. -- EF 65-70%. Severe LVH. -- Severe aortic stenosis with trace to mild regurgitation. -- CALE 0.5 cm. Mean AV gradient 48 mmHg. peak philosophy across aortic valve 4.8 m/s. 6. Cardiac catheterization 01/02/2015: -- Mid LAD 30%. Dominant RCA. -- Ostial RCA severely stenotic with visually 70% stenosis and ventricularization of the arterial waveform. -- Distal RCA 40%. 7. Bilateral iliac artery stent placement on 03/31/2015. 8. Echo 04/06/2015: -- biventricular systolic function. -- Moderate LVH. -- Severe aortic stenosis. 8. Right lower extremity angiography and intervention 05/18/2018: -- Right common/external iliac 8 x 59 mm bare metal stent placed by Dr. Rubio. 9. Right common femoral artery endarterectomy with bovine patch 12/07/2018 (Dr. Rubio). Allergies Allergy/AdvReac Type Severity Reaction Status Date / Time No Known Allergies Allergy Unknown Verified 11/12/19 15:16 Home Medications Home Medications Medication Instructions Recorded Confirmed Type aspirin 81 mg tablet,delayed 81 mg PO QAM tab 05/10/18 11/12/19 History release meclizine 25 mg tablet 25 mg PO BID PRN 07/26/18 11/12/19 History clopidogrel [Plavix] 1 tab PO QAM 11/09/18 11/12/19 History levothyroxine 150 mcg PO QAM 11/10/18 11/12/19 History metoprolol tartrate 12.5 mg PO BID 11/10/18 11/12/19 History blood sugar diagnostic #10 ea 04/10/19 11/05/19 History blood-glucose meter #1 ea 04/10/19 11/05/19 History insulin syringe-needle U-100 0.5 #10 ea 04/10/19 11/05/19 History mL 30 gauge x 5/16" pen needle, diabetic 32 gauge x #10 ea 04/10/19 11/05/19 History 5/32" triamcinolone acetonide 0.1 % 1 appln TOPICAL BID PRN #1 gm 06/10/19 11/12/19 History topical ointment insulin aspart U-100 [Novolog 1 unit SQ UD 08/13/19 11/12/19 History U-100 Insulin aspart] oxycodone-acetaminophen [Percocet] 1 tab PO TID PRN #6 tab 08/26/19 11/12/19 Rx tramadol [Ultram] 50 mg PO Q8H PRN 08/26/19 11/12/19 History sulfamethoxazole 800 1 tab PO BID PRN 14 Days #28 tab 10/01/19 11/12/19 Rx mg-trimethoprim 160 mg tablet amoxicillin 500 mg capsule 500 mg PO TID #90 cap 10/22/19 11/12/19 Rx pantoprazole 40 mg tablet,delayed 40 mg PO QAM #30 tab 10/22/19 11/12/19 Rx release atorvastatin 80 mg tablet 80 mg PO HS #30 tab 10/28/19 11/12/19 Rx Patient History Medical History Aortic stenosis s/p porcine valve 10/29/15 with CABG x 1 CAD (coronary artery disease) (Chronic) s/p CABG x 1 2015. Pt reports "small CT" 2014. Diabetic foot ulcer associated with type 1 diabetes mellitus (Chronic) Currently wearing full boot on R foot, diabetic shoe/slipper on L foot. Diabetic peripheral neuropathy (Acute) Dyslipidemia GERD (gastroesophageal reflux disease) Hypertension Hypothyroidism Myocardial Infarction MARCH 2015. "MILD CT" AFTER SURGERY PVD (peripheral vascular disease) (Chronic) s/p B/L iliac artery stents 2014, R common/external iliac 2017, R common femoral endarterectomy 11/2018 with bovine patch. Type 1 diabetes Surgical History H/O cataract extraction BILATERALLY H/O endarterectomy R common femoral 12/07/18 History of ankle surgery LEFT ANKLE PINNING. History of aortic valve replacement 2015 - [facility] History of colonoscopy History of coronary artery bypass graft 2016, AORTIC VALVE REPLACEMENT, CABG X1. [facility] History of esophagogastroduodenoscopy (EGD) History of herniorrhaphy UMBILICAL History of open reduction and internal fixation (ORIF) procedure left leg 1970s History of surgery 12/07/18 right common femoral endarterectomy with bovine pericardial angioplasty History of vitrectomy LEFT EYE S/P insertion of iliac artery stent B/L ILIAC STENT PLACEMENT BY DR. RUBIO IN 2014 Status post partial amputation of left foot (Chronic) currently in a walking cast on left leg Family History Brother Family history of diabetes mellitus Sister Family history of diabetes mellitus Mother Family history of diabetes mellitus Grandmother (Maternal) Family history of diabetes mellitus Uncle Family hx of colon cancer Father Family history of esophageal cancer Other No family history of adverse response to anesthesia Social History Preferred Language: Moroccan Communication Ability: Effective Hot Die Picker Required: No Beliefs That Will Affect Care: None marital status: Current Living Situation: Other Current Living Situation Comment: roomate Feels Safe at Home: Yes Smoking Status: Former smoker Tobacco Type: cigarettes ; Cigarettes Per Day: QUIT 15 YEARS AGO. HX OF 2 PPD "WASTED A LOT" ; Do You Dip or Chew Tobacco: No (former) ; Smoking End Date: 2009 ; Second Hand Exposure: Yes (ON OCC) ; Hx Alcohol Use: Yes Alcohol type: beer Hx Substance Use: No Physical Exam Physical Exam: GENERAL: Patient in no acute distress. HEENT: Head is atraumatic, normocephalic. EOM's intact. Facies symmetric. No perioral cyanosis. NECK: No JVD. JVP is at the level of the clavicle sitting upright. Carotid upstrokes are + 2 bilaterally. No bruits are noted. CHEST/LUNGS: Clear to auscultation throughout all lung fuller. No wheezes, rales, or crackles. CVS: S1 and S2 are regular, grade 2/6 basal systolic murmur appreciated. No gallops, or rubs appreciated. PMI is nondisplaced. No lifts, heaves, or thrills. No abdominal aortic or renal bruits. ABDOMINAL EXAM: Bowel sounds are present. No masses, organomegaly, or tenderness. EXTREMITIES: No clubbing or cyanosis. No edema. Intact posterior tibial and radial pulses bilaterally. NEUROLOGIC EXAM: Patient is awake, alert, and oriented. Pleasant and cooperative. Answers questions appropriately. Speech is clear. Normal movement in all 4 extremities. Interosseus and thenar atrophy bilaterally. Gait pattern patient walks with a walker. EKG 11/13/2019: -- NSR with a RBBB. -- QTc interval 493 msec. -- No acute changes. Results & Data ([facility]) Vital Signs (Past 12 Hours) Vital Signs Temp Pulse Pulse Resp BP Pulse Ox 11/13/19 08:00 36.6 C 67 18 116/54 L 96 11/13/19 04:00 36.7 C 79 20 116/78 96 11/12/19 23:33 67 Laboratory Results Laboratory Results - last 24 hr 11/12/19 11/12/19 11/12/19 14:00 14:00 14:00 WBC 11.88 H RBC 3.93 L Hgb 11.6 L Hct 35.9 L MCV 91.3 MCH 29.5 MCHC 32.3 RDW Std Deviation 44.0 RDW Coeff of Chan 13.1 Plt Count 233 MPV 10.9 H Immature Gran % (Auto) 0.3 Neut % (Auto) 84.5 Lymph % (Auto) 7.7 [place] % (Auto) 6.6 Eos % (Auto) 0.5 Baso % (Auto) 0.4 Immature Gran # (Auto) 0.03 H Neut # (Auto) 10.04 H Lymph # (Auto) 0.91 L [place] # (Auto) 0.79 H Eos # (Auto) 0.06 Baso # (Auto) 0.05 PT 11.2 INR 1.1 APTT 24.3 PTT Ratio 0.9 VBG pH Sodium 131 L Potassium 4.8 Chloride 99 Carbon Dioxide 21 Anion Gap 11.0 BUN 26 H Creatinine 1.55 H Est Cr Clr Drug Dosing 54.9 Est GFR ( Amer) 54.8 Est GFR (Non-Af Amer) 47.3 BUN/Creatinine Ratio 16.5 Glucose 478 H* POC Glucose Estimat Average Glucose Hemoglobin A1c Calcium 8.9 Phosphorus Total Bilirubin 1.0 AST 20 ALT 24 Alkaline Phosphatase 148 H Troponin I < 0.015 Total Protein 7.7 Albumin 3.7 Globulin 4.0 Albumin/Globulin Ratio 0.9 Lipase 50 L Beta-Hydroxybutyric Acd 16.38 H Urine Color Urine Appearance Urine pH Ur Specific [place] Urine Protein Urine Glucose (UA) Urine Ketones Urine Blood Urine Nitrite Urine Bilirubin Urine Urobilinogen Ur Leukocyte Esterase Hepatitis C Ab Screen 11/12/19 11/12/19 11/12/19 15:29 16:07 16:09 WBC RBC Hgb Hct MCV MCH MCHC RDW Std Deviation RDW Coeff of Chan Plt Count MPV Immature Gran % (Auto) Neut % (Auto) Lymph % (Auto) [place] % (Auto) Eos % (Auto) Baso % (Auto) Immature Gran # (Auto) Neut # (Auto) Lymph # (Auto) [place] # (Auto) Eos # (Auto) Baso # (Auto) PT INR APTT PTT Ratio VBG pH Sodium Potassium Chloride Carbon Dioxide Anion Gap BUN Creatinine Est Cr Clr Drug Dosing Est GFR ( Amer) Est GFR (Non-Af Amer) BUN/Creatinine Ratio Glucose POC Glucose 481 H* Estimat Average Glucose Hemoglobin A1c Calcium Phosphorus Total Bilirubin AST ALT Alkaline Phosphatase Troponin I < 0.015 Total Protein Albumin Globulin Albumin/Globulin Ratio Lipase Beta-Hydroxybutyric Acd Urine Color Urine Appearance Urine pH Ur Specific [place] Urine Protein Urine Glucose (UA) Urine Ketones Urine Blood Urine Nitrite Urine Bilirubin Urine Urobilinogen Ur Leukocyte Esterase Hepatitis C Ab Screen Neg 11/12/19 11/12/19 11/12/19 16:09 16:09 16:22 WBC RBC Hgb Hct MCV MCH MCHC RDW Std Deviation RDW Coeff of Chan Plt Count MPV Immature Gran % (Auto) Neut % (Auto) Lymph % (Auto) [place] % (Auto) Eos % (Auto) Baso % (Auto) Immature Gran # (Auto) Neut # (Auto) Lymph # (Auto) [place] # (Auto) Eos # (Auto) Baso # (Auto) PT INR APTT PTT Ratio VBG pH Sodium 132 L Potassium 4.9 Chloride 101 Carbon Dioxide 16 L Anion Gap 15.0 H BUN 29 H Creatinine 1.68 H Est Cr Clr Drug Dosing 50.7 Est GFR ( Amer) 49.7 Est GFR (Non-Af Amer) 42.9 BUN/Creatinine Ratio 17.1 Glucose 513 H* POC Glucose 480 H* Estimat Average Glucose 243 Hemoglobin A1c 10.1 H Calcium 9.0 Phosphorus Total Bilirubin AST ALT Alkaline Phosphatase Troponin I Total Protein Albumin Globulin Albumin/Globulin Ratio Lipase Beta-Hydroxybutyric Acd 28.54 H Urine Color Urine Appearance Urine pH Ur Specific [place] Urine Protein Urine Glucose (UA) Urine Ketones Urine Blood Urine Nitrite Urine Bilirubin Urine Urobilinogen Ur Leukocyte Esterase Hepatitis C Ab Screen 11/12/19 11/12/19 11/12/19 16:45 17:28 18:28 WBC RBC Hgb Hct MCV MCH MCHC RDW Std Deviation RDW Coeff of Chan Plt Count MPV Immature Gran % (Auto) Neut % (Auto) Lymph % (Auto) [place] % (Auto) Eos % (Auto) Baso % (Auto) Immature Gran # (Auto) Neut # (Auto) Lymph # (Auto) [place] # (Auto) Eos # (Auto) Baso # (Auto) PT INR APTT PTT Ratio VBG pH Sodium Potassium Chloride Carbon Dioxide Anion Gap BUN Creatinine Est Cr Clr Drug Dosing Est GFR ( Amer) Est GFR (Non-Af Amer) BUN/Creatinine Ratio Glucose POC Glucose 464 H* 392 H* Estimat Average Glucose Hemoglobin A1c Calcium Phosphorus Total Bilirubin AST ALT Alkaline Phosphatase Troponin I Total Protein Albumin Globulin Albumin/Globulin Ratio Lipase Beta-Hydroxybutyric Acd Urine Color Yellow Urine Appearance Clear Urine pH 5.5 Ur Specific [place] 1.019 Urine Protein Negative Urine Glucose (UA) 3+ H Urine Ketones 2+ H Urine Blood Negative Urine Nitrite Negative Urine Bilirubin Negative Urine Urobilinogen Negative Ur Leukocyte Esterase Negative Hepatitis C Ab Screen 11/12/19 11/12/19 11/12/19 19:56 21:29 21:50 WBC RBC Hgb Hct MCV MCH MCHC RDW Std Deviation RDW Coeff of Chan Plt Count MPV Immature Gran % (Auto) Neut % (Auto) Lymph % (Auto) [place] % (Auto) Eos % (Auto) Baso % (Auto) Immature Gran # (Auto) Neut # (Auto) Lymph # (Auto) [place] # (Auto) Eos # (Auto) Baso # (Auto) PT INR APTT PTT Ratio VBG pH Sodium Potassium Chloride Carbon Dioxide Anion Gap BUN Creatinine Est Cr Clr Drug Dosing Est GFR ( Amer) Est GFR (Non-Af Amer) BUN/Creatinine Ratio Glucose POC Glucose 230 H 201 H Estimat Average Glucose Hemoglobin A1c Calcium Phosphorus Total Bilirubin AST ALT Alkaline Phosphatase Troponin I 0.150 H* Total Protein Albumin Globulin Albumin/Globulin Ratio Lipase Beta-Hydroxybutyric Acd Urine Color Urine Appearance Urine pH Ur Specific [place] Urine Protein Urine Glucose (UA) Urine Ketones Urine Blood Urine Nitrite Urine Bilirubin Urine Urobilinogen Ur Leukocyte Esterase Hepatitis C Ab Screen 11/12/19 11/12/19 11/12/19 22:30 22:50 23:57 WBC RBC Hgb Hct MCV MCH MCHC RDW Std Deviation RDW Coeff of Chan Plt Count MPV Immature Gran % (Auto) Neut % (Auto) Lymph % (Auto) [place] % (Auto) Eos % (Auto) Baso % (Auto) Immature Gran # (Auto) Neut # (Auto) Lymph # (Auto) [place] # (Auto) Eos # (Auto) Baso # (Auto) PT INR APTT PTT Ratio VBG pH Sodium Potassium Chloride Carbon Dioxide Anion Gap BUN Creatinine Est Cr Clr Drug Dosing Est GFR ( Amer) Est GFR (Non-Af Amer) BUN/Creatinine Ratio Glucose POC Glucose 140 H 133 H 173 H Estimat Average Glucose Hemoglobin A1c Calcium Phosphorus Total Bilirubin AST ALT Alkaline Phosphatase Troponin I Total Protein Albumin Globulin Albumin/Globulin Ratio Lipase Beta-Hydroxybutyric Acd Urine Color Urine Appearance Urine pH Ur Specific [place] Urine Protein Urine Glucose (UA) Urine Ketones Urine Blood Urine Nitrite Urine Bilirubin Urine Urobilinogen Ur Leukocyte Esterase Hepatitis C Ab Screen 11/13/19 11/13/19 11/13/19 00:07 01:23 01:23 WBC RBC Hgb Hct MCV MCH MCHC RDW Std Deviation RDW Coeff of Chan Plt Count MPV Immature Gran % (Auto) Neut % (Auto) Lymph % (Auto) [place] % (Auto) Eos % (Auto) Baso % (Auto) Immature Gran # (Auto) Neut # (Auto) Lymph # (Auto) [place] # (Auto) Eos # (Auto) Baso # (Auto) PT INR APTT PTT Ratio VBG pH 7.35 L Sodium 138 137 Potassium 4.1 D 4.2 Chloride 108 H 107 Carbon Dioxide 21 20 L Anion Gap 9.0 10.0 BUN 28 H 28 H Creatinine 1.26 D 1.34 Est Cr Clr Drug Dosing 67.3 63.3 Est GFR ( Amer) 70.4 65.3 Est GFR (Non-Af Amer) 60.7 56.4 BUN/Creatinine Ratio 22.1 H 21.2 H Glucose 192 H 239 H POC Glucose Estimat Average Glucose Hemoglobin A1c Calcium 8.9 8.7 Phosphorus 3.2 Total Bilirubin AST ALT Alkaline Phosphatase Troponin I Total Protein Albumin Globulin Albumin/Globulin Ratio Lipase Beta-Hydroxybutyric Acd Urine Color Urine Appearance Urine pH Ur Specific [place] Urine Protein Urine Glucose (UA) Urine Ketones Urine Blood Urine Nitrite Urine Bilirubin Urine Urobilinogen Ur Leukocyte Esterase Hepatitis C Ab Screen 11/13/19 11/13/19 11/13/19 03:48 03:48 03:57 WBC 9.85 RBC 3.62 L Hgb 10.5 L Hct 32.5 L MCV 89.8 MCH 29.0 MCHC 32.3 RDW Std Deviation 43.1 RDW Coeff of Chan 13.1 Plt Count 214 MPV 10.3 Immature Gran % (Auto) Neut % (Auto) Lymph % (Auto) [place] % (Auto) Eos % (Auto) Baso % (Auto) Immature Gran # (Auto) Neut # (Auto) Lymph # (Auto) [place] # (Auto) Eos # (Auto) Baso # (Auto) PT INR APTT PTT Ratio VBG pH Sodium 135 L Potassium 4.3 Chloride 108 H Carbon Dioxide 19 L Anion Gap 8.0 BUN 27 H Creatinine 1.24 Est Cr Clr Drug Dosing 68.4 Est GFR ( Amer) 71.8 Est GFR (Non-Af Amer) 61.9 BUN/Creatinine Ratio 21.8 H Glucose 278 H POC Glucose 272 H Estimat Average Glucose Hemoglobin A1c Calcium 8.3 L Phosphorus Total Bilirubin 0.8 AST 19 ALT 20 Alkaline Phosphatase 115 Troponin I 0.316 H* Total Protein 6.3 L Albumin 2.9 L Globulin 3.4 Albumin/Globulin Ratio 0.9 Lipase Beta-Hydroxybutyric Acd Urine Color Urine Appearance Urine pH Ur Specific [place] Urine Protein Urine Glucose (UA) Urine Ketones Urine Blood Urine Nitrite Urine Bilirubin Urine Urobilinogen Ur Leukocyte Esterase Hepatitis C Ab Screen 11/13/19 11/13/19 11/13/19 05:32 05:32 07:58 WBC RBC Hgb Hct MCV MCH MCHC RDW Std Deviation RDW Coeff of Chan Plt Count MPV Immature Gran % (Auto) Neut % (Auto) Lymph % (Auto) [place] % (Auto) Eos % (Auto) Baso % (Auto) Immature Gran # (Auto) Neut # (Auto) Lymph # (Auto) [place] # (Auto) Eos # (Auto) Baso # (Auto) PT INR APTT PTT Ratio VBG pH 7.37 Sodium 138 Potassium 4.2 Chloride 108 H Carbon Dioxide 24 Anion Gap 6.0 BUN 27 H Creatinine 1.34 Est Cr Clr Drug Dosing 63.3 Est GFR ( Amer) 65.3 Est GFR (Non-Af Amer) 56.4 BUN/Creatinine Ratio 20.1 H Glucose 242 H POC Glucose 157 H Estimat Average Glucose Hemoglobin A1c Calcium 8.6 Phosphorus 2.3 L Total Bilirubin AST ALT Alkaline Phosphatase Troponin I Total Protein Albumin Globulin Albumin/Globulin Ratio Lipase Beta-Hydroxybutyric Acd Urine Color Urine Appearance Urine pH Ur Specific [place] Urine Protein Urine Glucose (UA) Urine Ketones Urine Blood Urine Nitrite Urine Bilirubin Urine Urobilinogen Ur Leukocyte Esterase Hepatitis C Ab Screen 11/13/19 11/13/19 08:59 08:59 WBC RBC Hgb Hct MCV MCH MCHC RDW Std Deviation RDW Coeff of Chan Plt Count MPV Immature Gran % (Auto) Neut % (Auto) Lymph % (Auto) [place] % (Auto) Eos % (Auto) Baso % (Auto) Immature Gran # (Auto) Neut # (Auto) Lymph # (Auto) [place] # (Auto) Eos # (Auto) Baso # (Auto) PT INR APTT PTT Ratio VBG pH 7.37 Sodium 137 Potassium 4.0 Chloride 108 H Carbon Dioxide 22 Anion Gap 7.0 BUN 25 H Creatinine 1.28 Est Cr Clr Drug Dosing 66.2 Est GFR ( Amer) 69.1 Est GFR (Non-Af Amer) 59.6 BUN/Creatinine Ratio 19.5 Glucose 146 H POC Glucose Estimat Average Glucose Hemoglobin A1c Calcium 8.7 Phosphorus 2.4 L Total Bilirubin AST ALT Alkaline Phosphatase Troponin I Total Protein Albumin Globulin Albumin/Globulin Ratio Lipase Beta-Hydroxybutyric Acd Urine Color Urine Appearance Urine pH Ur Specific [place] Urine Protein Urine Glucose (UA) Urine Ketones Urine Blood Urine Nitrite Urine Bilirubin Urine Urobilinogen Ur Leukocyte Esterase Hepatitis C Ab Screen Medications Administered Active Medications Generic Name Dose Route Start Last Admin Trade Name Freq PRN Reason Stop Dose Admin Acetaminophen 650 mg 11/12/19 19:54 Tylenol PO 12/12/19 19:53 Q4H PRN Pain or Fever Amoxicillin 500 mg 11/12/19 21:00 11/13/19 07:48 Amoxil PO 11/19/19 20:59 500 mg TID LIZZY Administration Protocol Aspirin 81 mg 11/13/19 09:00 11/13/19 07:48 Ecotrin Ectab PO 12/13/19 08:59 81 mg QAM LIZZY Administration Atorvastatin Calcium 80 mg 11/12/19 21:00 11/12/19 20:40 Lipitor PO 12/12/19 20:59 80 mg HS LIZZY Administration Clopidogrel Bisulfate 75 mg 11/13/19 09:00 11/13/19 07:48 Plavix PO 12/13/19 08:59 75 mg QAM LIZZY Administration Dextrose 25 - 50 ml 11/12/19 15:59 Dextrose 50% IV 12/12/19 15:58 UD PRN Hypoglycemia Protocol Protocol Glucagon 1 mg 11/12/19 15:59 Glucagen SQ 12/12/19 15:58 UD PRN Hypoglycemia Protocol Protocol Glucose 4 - 8 tabs 11/12/19 15:59 Dex4 Glucose PO 12/12/19 15:58 UD PRN Hypoglycemia Protocol Protocol Glucose 15 - 30 gm 11/12/19 15:59 Glucose 40% PO 12/12/19 15:58 UD PRN Hypoglycemia Protocol Protocol Heparin Sodium (Porcine) 5,000 units 11/12/19 21:00 11/13/19 08:47 Heparin Sodium (Porcine) SQ 12/12/19 20:59 5,000 units Q12 LIZZY Administration Prochlorperazine 10 mg/ 10 mls @ 5 mls/min 11/12/19 19:54 Syringe IV 12/12/19 19:53 Q6H PRN Nausea And Vomiting Potassium Chloride/Sodium Chloride 20 meq in 1,000 mls @ 125 mls/hr 11/13/19 04:15 11/13/19 04:09 1/2 Nss + 20meq Kcl 1000ml IV 12/13/19 04:14 125 mls/hr .Q8H LIZZY Administration Insulin Aspart 0 units 11/13/19 04:00 11/13/19 08:11 Novolog Flexpen SC 12/13/19 03:59 Not Given Q4H LIZZY Levothyroxine Sodium 150 mcg 11/13/19 06:30 11/13/19 05:42 Synthroid PO 12/13/19 06:29 150 mcg DAILYBB LIZZY Administration Metoprolol Tartrate 12.5 mg 11/12/19 21:00 11/13/19 07:48 Lopressor PO 12/12/19 20:59 12.5 mg BID LIZZY Administration Miscellaneous 15 - 30 gm 11/12/19 15:59 Carbohydrates For Hypoglycemia PO 12/12/19 15:58 UD PRN Hypoglycemia Protocol Miscellaneous Information 1 ea 11/12/19 22:51 Consult Glycemic Management Pharmacy N/A 12/12/19 22:50 UD PRN Consult Oxycodone/Acetaminophen 1 tab 11/12/19 19:54 Percocet 5mg/325mg PO 11/26/19 19:53 TID PRN pain Pantoprazole Sodium 40 mg 11/13/19 09:00 11/13/19 07:49 Protonix PO 12/13/19 08:59 40 mg QAM LIZZY Administration Polyethylene Glycol 17 gm 11/12/19 19:54 Miralax Powder Packet PO 12/12/19 19:53 DAILY PRN Constipation Tramadol HCl 50 mg 11/12/19 19:54 Ultram PO 12/12/19 19:53 Q8H PRN pain Trimethoprim/Sulfamethoxazole 1 tab 11/12/19 21:00 11/13/19 07:48 Septra Ds 800/160mg Tab PO 11/19/19 20:59 1 tab BID LIZZY Administration PG Care Time/CCT Total # of Minutes Spent Total Time Spent with Patient: Total time spent is greater than 50% in coordination of care (as documented) at patient's floor/unit and/or counseling patient: Coding Level of Care Code 59075 Initial Inpt Care Lvl 3 Diagnoses Elevated troponin I level R79.89 Coronary artery disease I25.10 Coronary Disease-Associated Artery/Lesion type: [place] artery [place] vs. transplanted heart: [place] heart Associated angina: without angina S/P AVR Z95.2 (1) Coronary artery disease Coronary Disease-Associated Artery/Lesion type: [place] artery [place] vs. transplanted heart: [place] heart Associated angina: without angina Qualified Code(s): I25.10 - Atherosclerotic heart disease of [place] coronary artery without angina pectoris
--- NOTE | 2019-11-13 13:47 | Hospitalist Progress Note ---
Date of Service November 13, 2019 Assessment & Plan (1) DKA (diabetic ketoacidoses): - due to kink in tubing of insulin pump, acidosis completely resolved with Lantus and Novolog continue basal bolus insulin today, resume pump tomorrow has plan to get new delivery system with pump, he already d/w pump rep stop IV fluids today diabetic diet, allow to eat this afternoon as there is no plan for cath today (2) High anion gap metabolic acidosis: resolved with insulin administration HCO3 is 21 (3) Nausea: due to DKA completely resolved today (4) Chest pain: -he denies ever having chest pain today EKG showed sinus rhythm with RBBB, no obvious ischemia troponin was 0.00 x 2 then bumped to 0.1 and 0.3 asked cardiology to evaluate echocardiogram done, official report pending if there is WM abnormality then may consider cath tomorrow, make NPO after midnight (5) Coronary artery disease: - H/o "mild" MO in 2014 following vascular intervention. - H/o CABG x 1 [place] [facility] [place] - Continue cardiac meds. Cardiac work up as noted above. - Follows with [facility]. (6) Peripheral vascular disease: - S/p B/L iliac artery stents 2014, R common/external iliac 2017, R common femoral endarterectomy 11/2018 with bovine patch. - Continue Plavix, ASA, statin as prescribed. (7) Aorto-iliac disease: - S/p B/L ILIAC STENT PLACEMENT BY DR. RUBIO IN 2014. (8) Acute renal failure: - Creatinine 1.68, baseline ~1.0-1.1 - IV fluids at 125 cc/hr. Cr down to 1.19 today, thus RAIN resolved, was related to DKA and volume losses (9) Diabetic foot ulcer associated with type 1 diabetes mellitus: - Follows with the wound clinic, Dr. Neville, and ID, Dr. Ennis for bilateral feet wounds, chronic osteomyelitis. - Most recently status post debridement on 11/05. - Continue Amoxicillin and Bactrim -- most recent wound culture +VRE and Pseudomonas. - Consult wound nurse for dressing changes. (10) S/P aortic valve replacement with bioprosthetic valve: - In 2015 [place] [facility] (11) HTN (hypertension), benign: - Continue Metoprolol 12.5 mg BID. (12) Hypothyroidism: - Continue Levothyroxine as prescribed. - TSH was 0.9 in Jul 2019. (13) Dyslipidemia: - Continue statin as prescribed. (14) GERD (gastroesophageal reflux disease): - PPI daily. (15) Anemia: - Hgb baseline ~11. it is 10.6 today Admission and Anticipated Discharge Date Admission Date: November 12, 2019 Anticipated date of discharge: 11/14/19 Subjective patient feeling much better he feels certain that his tubing kinked, he discussed with the rep for his pump planning on getting a different delivery system d/w pharmacy, will continue Lantus and Novolog for today, resume insulin pump tomorrow d/w cardiology, will check echo for wall motion abnormalities will allow him to eat today reviewed labs, DKA completely resolved, sugars low 200's never had chest pain or pressure, no dyspnea, just had the nausea with the DKA Review of Systems Review of Systems: All systems reviewed & are unremarkable except as noted in HPI & below Constitutional: no fever, no chills, no fatigue and no weakness Respiratory: no cough Cardiovascular: no chest pain Gastrointestinal: no abdominal pain, no nausea, no vomiting, no constipation and no diarrhea/loose stools Physical Exam Constitutional: WD/WN, vitals as above Eyes: PERRL, conjunctivae normal, anicteric sclerae ENMT: external ear and nose normal, oropharynx normal Neck: trachea midline, no thyromegaly Respiratory: normal respiratory effort, lungs clear to auscultation Cardiovascular: RRR, no murmur, no edema Gastrointestinal (Abdomen): normal bowel sounds, soft, nontender, no hepato splenomegaly Musculoskeletal: no cyanosis or clubbing, extremities motor strength 5/5 Skin: no rashes, warm and dry Neurologic: patellar DTR's 2+ bilat, sensation intact and PERRL, EOMI, accommodation nl, no face palsy, no dysarthria Psychiatric: A+Ox3, euthymic affect Lymphatic: no cervical or axillary lymphadenopathy Results & Data ([facility]) Vital Signs (Past 12 Hours) Vital Signs Temp Pulse Resp BP Pulse Ox 11/13/19 08:00 36.6 C 67 18 116/54 L 96 11/13/19 04:00 36.7 C 79 20 116/78 96 Laboratory Results Laboratory Results - last 24 hr 11/12/19 11/12/1911/11/20 14:00 14:00 14:00 WBC 11.88 H RBC 3.93 L Hgb 11.6 L Hct 35.9 L MCV 91.3 MCH 29.5 MCHC 32.3 RDW Std Deviation 44.0 RDW Coeff of Chan 13.1 Plt Count 233 MPV 10.9 H Immature Gran % (Auto) 0.3 Neut % (Auto) 84.5 Lymph % (Auto) 7.7 Sebastian % (Auto) 6.6 Eos % (Auto) 0.5 Baso % (Auto) 0.4 Immature Gran # (Auto) 0.03 H Neut # (Auto) 10.04 H Lymph # (Auto) 0.91 L Sebastian # (Auto) 0.79 H Eos # (Auto) 0.06 Baso # (Auto) 0.05 PT 11.2 INR 1.1 APTT 24.3 PTT Ratio 0.9 VBG pH Sodium 131 L Potassium 4.8 Chloride 99 Carbon Dioxide 21 Anion Gap 11.0 BUN 26 H Creatinine 1.55 H Est Cr Clr Drug Dosing 54.9 Est GFR ( Amer) 54.8 Est GFR (Non-Af Amer) 47.3 BUN/Creatinine Ratio 16.5 Glucose 478 H* POC Glucose Estimat Average Glucose Hemoglobin A1c Calcium 8.9 Phosphorus Total Bilirubin 1.0 AST 20 ALT 24 Alkaline Phosphatase 148 H Troponin I < 0.015 Total Protein 7.7 Albumin 3.7 Globulin 4.0 Albumin/Globulin Ratio 0.9 Lipase 50 L Beta-Hydroxybutyric Acd 16.38 H Urine Color Urine Appearance Urine pH Ur Specific [place] Urine Protein Urine Glucose (UA) Urine Ketones Urine Blood Urine Nitrite Urine Bilirubin Urine Urobilinogen Ur Leukocyte Esterase Hepatitis C Ab Screen 11/12/19 11/12/19 11/12/19 15:29 16:07 16:09 WBC RBC Hgb Hct MCV MCH MCHC RDW Std Deviation RDW Coeff of Cahn Plt Count MPV Immature Gran % (Auto) Neut % (Auto) Lymph % (Auto) Sebastian % (Auto) Eos % (Auto) Baso % (Auto) Immature Gran # (Auto) Neut # (Auto) Lymph # (Auto) Sebastian # (Auto) Eos # (Auto) Baso # (Auto) PT INR APTT PTT Ratio VBG pH Sodium Potassium Chloride Carbon Dioxide Anion Gap BUN Creatinine Est Cr Clr Drug Dosing Est GFR ( Amer) Est GFR (Non-Af Amer) BUN/Creatinine Ratio Glucose POC Glucose 481 H* Estimat Average Glucose Hemoglobin A1c Calcium Phosphorus Total Bilirubin AST ALT Alkaline Phosphatase Troponin I < 0.015 Total Protein Albumin Globulin Albumin/Globulin Ratio Lipase Beta-Hydroxybutyric Acd Urine Color Urine Appearance Urine pH Ur Specific [place] Urine Protein Urine Glucose (UA) Urine Ketones Urine Blood Urine Nitrite Urine Bilirubin Urine Urobilinogen Ur Leukocyte Esterase Hepatitis C Ab Screen Neg 11/12/19 11/12/19 11/12/19 16:09 16:09 16:22 WBC RBC Hgb Hct MCV MCH MCHC RDW Std Deviation RDW Coeff of Chan Plt Count MPV Immature Gran % (Auto) Neut % (Auto) Lymph % (Auto) Sebastian % (Auto) Eos % (Auto) Baso % (Auto) Immature Gran # (Auto) Neut # (Auto) Lymph # (Auto) Sebastian # (Auto) Eos # (Auto) Baso # (Auto) PT INR APTT PTT Ratio VBG pH Sodium 132 L Potassium 4.9 Chloride 101 Carbon Dioxide 16 L Anion Gap 15.0 H BUN 29 H Creatinine 1.68 H Est Cr Clr Drug Dosing 50.7 Est GFR ( Amer) 49.7 Est GFR (Non-Af Amer) 42.9 BUN/Creatinine Ratio 17.1 Glucose 513 H* POC Glucose 480 H* Estimat Average Glucose 243 Hemoglobin A1c 10.1 H Calcium 9.0 Phosphorus Total Bilirubin AST ALT Alkaline Phosphatase Troponin I Total Protein Albumin Globulin Albumin/Globulin Ratio Lipase Beta-Hydroxybutyric Acd 28.54 H Urine Color Urine Appearance Urine pH Ur Specific [place] Urine Protein Urine Glucose (UA) Urine Ketones Urine Blood Urine Nitrite Urine Bilirubin Urine Urobilinogen Ur Leukocyte Esterase Hepatitis C Ab Screen 11/12/19 11/12/19 11/12/19 16:45 17:28 18:28 WBC RBC Hgb Hct MCV MCH MCHC RDW Std Deviation RDW Coeff of Chan Plt Count MPV Immature Gran % (Auto) Neut % (Auto) Lymph % (Auto) Sebastian % (Auto) Eos % (Auto) Baso % (Auto) Immature Gran # (Auto) Neut # (Auto) Lymph # (Auto) Sebastian # (Auto) Eos # (Auto) Baso # (Auto) PT INR APTT PTT Ratio VBG pH Sodium Potassium Chloride Carbon Dioxide Anion Gap BUN Creatinine Est Cr Clr Drug Dosing Est GFR ( Amer) Est GFR (Non-Af Amer) BUN/Creatinine Ratio Glucose POC Glucose 464 H* 392 H* Estimat Average Glucose Hemoglobin A1c Calcium Phosphorus Total Bilirubin AST ALT Alkaline Phosphatase Troponin I Total Protein Albumin Globulin Albumin/Globulin Ratio Lipase Beta-Hydroxybutyric Acd Urine Color Yellow Urine Appearance Clear Urine pH 5.5 Ur Specific [place] 1.019 Urine Protein Negative Urine Glucose (UA) 3+ H Urine Ketones 2+ H Urine Blood Negative Urine Nitrite Negative Urine Bilirubin Negative Urine Urobilinogen Negative Ur Leukocyte Esterase Negative Hepatitis C Ab Screen 11/12/19 11/12/19 11/12/19 19:56 21:29 21:50 WBC RBC Hgb Hct MCV MCH MCHC RDW Std Deviation RDW Coeff of Chan Plt Count MPV Immature Gran % (Auto) Neut % (Auto) Lymph % (Auto) Sebastian % (Auto) Eos % (Auto) Baso % (Auto) Immature Gran # (Auto) Neut # (Auto) Lymph # (Auto) Sebastian # (Auto) Eos # (Auto) Baso # (Auto) PT INR APTT PTT Ratio VBG pH Sodium Potassium Chloride Carbon Dioxide Anion Gap BUN Creatinine Est Cr Clr Drug Dosing Est GFR ( Amer) Est GFR (Non-Af Amer) BUN/Creatinine Ratio Glucose POC Glucose 230 H 201 H Estimat Average Glucose Hemoglobin A1c Calcium Phosphorus Total Bilirubin AST ALT Alkaline Phosphatase Troponin I 0.150 H* Total Protein Albumin Globulin Albumin/Globulin Ratio Lipase Beta-Hydroxybutyric Acd Urine Color Urine Appearance Urine pH Ur Specific [place] Urine Protein Urine Glucose (UA) Urine Ketones Urine Blood Urine Nitrite Urine Bilirubin Urine Urobilinogen Ur Leukocyte Esterase Hepatitis C Ab Screen 11/12/19 11/12/19 11/12/19 22:30 22:50 23:57 WBC RBC Hgb Hct MCV MCH MCHC RDW Std Deviation RDW Coeff of Chan Plt Count MPV Immature Gran % (Auto) Neut % (Auto) Lymph % (Auto) Sebastian % (Auto) Eos % (Auto) Baso % (Auto) Immature Gran # (Auto) Neut # (Auto) Lymph # (Auto) Sebastian # (Auto) Eos # (Auto) Baso # (Auto) PT INR APTT PTT Ratio VBG pH Sodium Potassium Chloride Carbon Dioxide Anion Gap BUN Creatinine Est Cr Clr Drug Dosing Est GFR ( Amer) Est GFR (Non-Af Amer) BUN/Creatinine Ratio Glucose POC Glucose 140 H 133 H 173 H Estimat Average Glucose Hemoglobin A1c Calcium Phosphorus Total Bilirubin AST ALT Alkaline Phosphatase Troponin I Total Protein Albumin Globulin Albumin/Globulin Ratio Lipase Beta-Hydroxybutyric Acd Urine Color Urine Appearance Urine pH Ur Specific [place] Urine Protein Urine Glucose (UA) Urine Ketones Urine Blood Urine Nitrite Urine Bilirubin Urine Urobilinogen Ur Leukocyte Esterase Hepatitis C Ab Screen 11/13/19 11/13/19 11/13/19 00:07 01:23 01:23 WBC RBC Hgb Hct MCV MCH MCHC RDW Std Deviation RDW Coeff of Chan Plt Count MPV Immature Gran % (Auto) Neut % (Auto) Lymph % (Auto) Sebastian % (Auto) Eos % (Auto) Baso % (Auto) Immature Gran # (Auto) Neut # (Auto) Lymph # (Auto) Sebastian # (Auto) Eos # (Auto) Baso # (Auto) PT INR APTT PTT Ratio VBG pH 7.35 L Sodium 138 137 Potassium 4.1 D 4.2 Chloride 108 H 107 Carbon Dioxide 21 20 L Anion Gap 9.0 10.0 BUN 28 H 28 H Creatinine 1.26 D 1.34 Est Cr Clr Drug Dosing 67.3 63.3 Est GFR ( Amer) 70.4 65.3 Est GFR (Non-Af Amer) 60.7 56.4 BUN/Creatinine Ratio 22.1 H 21.2 H Glucose 192 H 239 H POC Glucose Estimat Average Glucose Hemoglobin A1c Calcium 8.9 8.7 Phosphorus 3.2 Total Bilirubin AST ALT Alkaline Phosphatase Troponin I Total Protein Albumin Globulin Albumin/Globulin Ratio Lipase Beta-Hydroxybutyric Acd Urine Color Urine Appearance Urine pH Ur Specific [place] Urine Protein Urine Glucose (UA) Urine Ketones Urine Blood Urine Nitrite Urine Bilirubin Urine Urobilinogen Ur Leukocyte Esterase Hepatitis C Ab Screen 11/13/19 11/13/19 11/13/19 03:48 03:48 03:57 WBC 9.85 RBC 3.62 L Hgb 10.5 L Hct 32.5 L MCV 89.8 MCH 29.0 MCHC 32.3 RDW Std Deviation 43.1 RDW Coeff of Chan 13.1 Plt Count 214 MPV 10.3 Immature Gran % (Auto) Neut % (Auto) Lymph % (Auto) Sebastian % (Auto) Eos % (Auto) Baso % (Auto) Immature Gran # (Auto) Neut # (Auto) Lymph # (Auto) Sebastian # (Auto) Eos # (Auto) Baso # (Auto) PT INR APTT PTT Ratio VBG pH Sodium 135 L Potassium 4.3 Chloride 108 H Carbon Dioxide 19 L Anion Gap 8.0 BUN 27 H Creatinine 1.24 Est Cr Clr Drug Dosing 68.4 Est GFR ( Amer) 71.8 Est GFR (Non-Af Amer) 61.9 BUN/Creatinine Ratio 21.8 H Glucose 278 H POC Glucose 272 H Estimat Average Glucose Hemoglobin A1c Calcium 8.3 L Phosphorus Total Bilirubin 0.8 AST 19 ALT 20 Alkaline Phosphatase 115 Troponin I 0.316 H* Total Protein 6.3 L Albumin 2.9 L Globulin 3.4 Albumin/Globulin Ratio 0.9 Lipase Beta-Hydroxybutyric Acd Urine Color Urine Appearance Urine pH Ur Specific [place] Urine Protein Urine Glucose (UA) Urine Ketones Urine Blood Urine Nitrite Urine Bilirubin Urine Urobilinogen Ur Leukocyte Esterase Hepatitis C Ab Screen 11/13/19 11/13/19 11/13/19 05:32 05:32 07:58 WBC RBC Hgb Hct MCV MCH MCHC RDW Std Deviation RDW Coeff of Chan Plt Count MPV Immature Gran % (Auto) Neut % (Auto) Lymph % (Auto) Sebastian % (Auto) Eos % (Auto) Baso % (Auto) Immature Gran # (Auto) Neut # (Auto) Lymph # (Auto) Sebastian # (Auto) Eos # (Auto) Baso # (Auto) PT INR APTT PTT Ratio VBG pH 7.37 Sodium 138 Potassium 4.2 Chloride 108 H Carbon Dioxide 24 Anion Gap 6.0 BUN 27 H Creatinine 1.34 Est Cr Clr Drug Dosing 63.3 Est GFR ( Amer) 65.3 Est GFR (Non-Af Amer) 56.4 BUN/Creatinine Ratio 20.1 H Glucose 242 H POC Glucose 157 H Estimat Average Glucose Hemoglobin A1c Calcium 8.6 Phosphorus 2.3 L Total Bilirubin AST ALT Alkaline Phosphatase Troponin I Total Protein Albumin Globulin Albumin/Globulin Ratio Lipase Beta-Hydroxybutyric Acd Urine Color Urine Appearance Urine pH Ur Specific [place] Urine Protein Urine Glucose (UA) Urine Ketones Urine Blood Urine Nitrite Urine Bilirubin Urine Urobilinogen Ur Leukocyte Esterase Hepatitis C Ab Screen 11/13/19 11/13/19 11/13/19 08:59 08:59 11:19 WBC RBC Hgb Hct MCV MCH MCHC RDW Std Deviation RDW Coeff of Chan Plt Count MPV Immature Gran % (Auto) Neut % (Auto) Lymph % (Auto) Sebastian % (Auto) Eos % (Auto) Baso % (Auto) Immature Gran # (Auto) Neut # (Auto) Lymph # (Auto) Sebastian # (Auto) Eos # (Auto) Baso # (Auto) PT INR APTT PTT Ratio VBG pH 7.37 Sodium 137 Potassium 4.0 Chloride 108 H Carbon Dioxide 22 Anion Gap 7.0 BUN 25 H Creatinine 1.28 Est Cr Clr Drug Dosing 66.2 Est GFR ( Amer) 69.1 Est GFR (Non-Af Amer) 59.6 BUN/Creatinine Ratio 19.5 Glucose 146 H POC Glucose 141 H Estimat Average Glucose Hemoglobin A1c Calcium 8.7 Phosphorus 2.4 L Total Bilirubin AST ALT Alkaline Phosphatase Troponin I Total Protein Albumin Globulin Albumin/Globulin Ratio Lipase Beta-Hydroxybutyric Acd Urine Color Urine Appearance Urine pH Ur Specific [place] Urine Protein Urine Glucose (UA) Urine Ketones Urine Blood Urine Nitrite Urine Bilirubin Urine Urobilinogen Ur Leukocyte Esterase Hepatitis C Ab Screen 11/13/19 11/13/19 13:09 13:09 WBC RBC Hgb Hct MCV MCH MCHC RDW Std Deviation RDW Coeff of Chan Plt Count MPV Immature Gran % (Auto) Neut % (Auto) Lymph % (Auto) Sebastian % (Auto) Eos % (Auto) Baso % (Auto) Immature Gran # (Auto) Neut # (Auto) Lymph # (Auto) Sebastian # (Auto) Eos # (Auto) Baso # (Auto) PT INR APTT PTT Ratio VBG pH 7.39 Sodium Pending Potassium Pending Chloride Pending Carbon Dioxide Pending Anion Gap Pending BUN Pending Creatinine Pending Est Cr Clr Drug Dosing Pending Est GFR ( Amer) Pending Est GFR (Non-Af Amer) Pending BUN/Creatinine Ratio Pending Glucose Pending POC Glucose Estimat Average Glucose Hemoglobin A1c Calcium Pending Phosphorus Pending Total Bilirubin AST ALT Alkaline Phosphatase Troponin I Total Protein Albumin Globulin Albumin/Globulin Ratio Lipase Beta-Hydroxybutyric Acd Urine Color Urine Appearance Urine pH Ur Specific [place] Urine Protein Urine Glucose (UA) Urine Ketones Urine Blood Urine Nitrite Urine Bilirubin Urine Urobilinogen Ur Leukocyte Esterase Hepatitis C Ab Screen Medications Administered Current Inpatient Medications Acetaminophen (Tylenol) 650 mg PO Q4H PRN PRN Reason: Pain or Fever Stop: 12/12/19 19:53 Amoxicillin (Amoxil) 500 mg PO TID [facility]; Protocol Stop: 11/19/19 20:59 Last Admin: 11/13/19 07:48 Dose: 500 mg Documented by: Aspirin (Ecotrin Ectab) 81 mg PO QAM [facility] Stop: 12/13/19 08:59 Last Admin: 11/13/19 07:48 Dose: 81 mg Documented by: Atorvastatin Calcium (Lipitor) 80 mg PO [facility] Stop: 12/12/19 20:59 Last Admin: 11/12/19 20:40 Dose: 80 mg Documented by: Clopidogrel [facility] (Plavix) [facility] [place] Stop: 12/13/19 08:59 Last Admin: 11/13/19 07:48 Dose: 75 mg Documented by: Dextrose (Dextrose 50%) 25 - 50 ml IV UD PRN; Protocol PRN Reason: Hypoglycemia Protocol Stop: 12/12/19 15:58 Glucagon (Glucagen) 1 mg SQ UD PRN; Protocol PRN Reason: Hypoglycemia Protocol Stop: 12/12/19 15:58 Glucose (Dex4 Glucose) 4 - 8 tabs PO UD PRN; Protocol PRN Reason: Hypoglycemia Protocol Stop: 12/12/19 15:58 Glucose (Glucose 40%) 15 - 30 gm PO UD PRN; Protocol PRN Reason: Hypoglycemia Protocol Stop: 12/12/19 15:58 Heparin Sodium (Porcine) (Heparin Sodium (Porcine)) 5,000 units SQ Q12 [facility] Stop: 12/12/19 20:59 Last Admin: 11/13/19 08:47 Dose: 5,000 units Documented by: Prochlorperazine 10 mg/ (Syringe) 10 mls @ 5 mls/min IV Q6H PRN PRN Reason: Nausea And Vomiting Stop: 12/12/19 19:53 Potassium Chloride/Sodium Chloride (1/2 Nss + 20meq Kcl 1000ml) 20 meq in 1,000 mls @ 125 mls/hr IV .Q8H [facility] Stop: 12/13/19 04:14 Last Admin: 11/13/19 12:34 Dose: 125 mls/hr Documented by: Insulin Aspart (Novolog Flexpen) 0 units SC Q4H [facility] Stop: 12/13/19 03:59 Last Admin: 11/13/19 11:24 Dose: Not Given Documented by: Insulin Aspart (Novolog Flexpen) 0 units SC Q6 [facility] Stop: 12/13/19 17:59 Levothyroxine Sodium (Synthroid) 150 mcg PO DAILYBB [facility] Stop: 12/13/19 06:29 Last Admin: 11/13/19 05:42 Dose: 150 mcg Documented by: Metoprolol Tartrate (Lopressor) 12.5 mg PO BID [facility] Stop: 12/12/19 20:59 Last Admin: 11/13/19 07:48 Dose: 12.5 mg Documented by: Miscellaneous (Carbohydrates For Hypoglycemia) 15 - 30 gm PO UD PRN PRN Reason: Hypoglycemia Protocol Stop: 12/12/19 15:58 Miscellaneous Information (Consult Glycemic Management Pharmacy) 1 ea N/A UD PRN PRN Reason: Consult Stop: 12/12/19 22:50 Oxycodone/Acetaminophen (Percocet 5mg/325mg) 1 tab PO TID PRN PRN Reason: pain Stop: 11/26/19 19:53 Pantoprazole Sodium (Protonix) 40 mg PO QAM [facility] Stop: 12/13/19 08:59 Last Admin: 11/13/19 07:49 Dose: 40 mg Documented by: Polyethylene Glycol (Miralax Powder Packet) 17 gm PO DAILY PRN PRN Reason: Constipation Stop: 12/12/19 19:53 Tramadol HCl (Ultram) 50 mg PO Q8H PRN PRN Reason: pain Stop: 12/12/19 19:53 Trimethoprim/Sulfamethoxazole (Septra Ds 800/160mg Tab) 1 tab PO BID [facility] Stop: 11/19/19 20:59 Last Admin: 11/13/19 07:48 Dose: 1 tab Documented by: PG Care Time/CCT Total # of Minutes Spent Total Time Spent with Patient: Total time spent is greater than 50% in coordination of care (as documented) at patient's floor/unit and/or counseling patient: Coding Level of Care Code 72938 Subseq Hosp Care Lvl 3 Diagnoses DKA (diabetic ketoacidoses) E10.10 Diabetes mellitus complication detail: without coma Diabetes mellitus type: type 1 High anion gap metabolic acidosis E87.2 Nausea R11.0 Chest pain R07.9 Chest pain type: unspecified Coronary artery disease I25.10 Associated angina: without angina Coronary Disease-Associated Artery/Lesion type: [place] artery [place] vs. transplanted heart: [place] heart Peripheral vascular disease I73.9 Aorto-iliac disease I74.09 Acute renal failure N17.9 Diabetic foot ulcer associated with type 1 diabetes mellitus E10.621; L97.516 Diabetic foot ulcer location: unspecified part of foot Laterality: right Non-pressure ulcer stage: with bone involvement without evidence of necrosis S/P aortic valve replacement with bioprosthetic valve Z95.3 HTN (hypertension), benign I10 Hypothyroidism E03.9 Hypothyroidism type: acquired Dyslipidemia E78.5 GERD (gastroesophageal reflux disease) K21.9 Anemia D64.9 (1) DKA (diabetic ketoacidoses) Diabetes mellitus complication detail: without coma Diabetes mellitus type: type 1 Qualified Code(s): E10.10 - Type 1 diabetes mellitus with ketoacidosis without coma (2) Coronary artery disease Associated angina: without angina Coronary Disease-Associated Artery/Lesion type: [place] artery [place] vs. transplanted heart: [place] heart Qualified Code(s): I25.10 - Atherosclerotic heart disease of [place] coronary artery without angina pectoris (3) Hypothyroidism Hypothyroidism type: acquired Qualified Code(s): E03.9 - Hypothyroidism, unspecified (4) Diabetic foot ulcer associated with type 1 diabetes mellitus Diabetic foot ulcer location: unspecified part of foot Laterality: right Non-pressure ulcer stage: with bone involvement without evidence of necrosis Qualified Code(s): E10.621 - Type 1 diabetes mellitus with foot ulcer; L97.516 - Non-pressure chronic ulcer of other part of right foot with bone involvement without evidence of necrosis (5) Chest pain Chest pain type: unspecified Qualified Code(s): R07.9 - Chest pain, unspecified
[2019-11-13 13:58] LABS: BUN Creatinine Ratio 19.7 (10-20); Calcium 8.4 mg/dl (8.5-10.1); Creatinine Clr Calc Pharmacy 71.2 ml/min; Est GFR (African American) 75.4; Est GFR (Non-African American) 65.1; Potassium 4.3 mmol/L (3.5-5.1)
[2019-11-13 13:59] LABS: Phosphorus 2.8 mg/dl (2.5-4.9)
--- NOTE | 2019-11-13 15:13 | Pharmacy Report ---
Pharmacy Glycemic Short Note 2 - Date of Service November 13, 2019 - Glycemic Short BSG Results (Last 24 hours): 11/12/19 11/12/19 11/12/19 14:00 15:29 16:09 Glucose 478 H* 513 H* POC Glucose 481 H* 11/12/19 11/12/19 11/12/19 16:22 17:28 18:28 Glucose POC Glucose 480 H* 464 H* 392 H* 11/12/19 11/12/19 11/12/19 19:56 21:29 22:30 Glucose POC Glucose 230 H 201 H 140 H 11/12/19 11/12/19 11/13/19 22:50 23:57 00:07 Glucose 192 H POC Glucose 133 H 173 H 11/13/19 11/13/19 11/13/19 01:23 03:48 03:57 Glucose 239 H 278 H POC Glucose 272 H 11/13/19 11/13/19 11/13/19 05:32 07:58 08:59 Glucose 242 H 146 H POC Glucose 157 H 11/13/19 11/13/19 11:19 13:09 Glucose 134 H POC Glucose 141 H OUTPATIENT ANTIDIABETIC REGIMEN: * Novolog pump * basal: 1.3 units/hr * bolus: CF 40 (for BSG > 120), CR 8 * total usage: 55-60 units per day * A1c 10.1% 11/12/19 ASSESSMENT: * Mr. Chowdhury is a 64 yo T1DM male on insulin pump as an outpatient * He was started on an IV insulin infusion upon admission for mild DKA. Pt suspects pump administration set was placed incorrectly, therefore he was received partial doses of insulin. He states this happened once before. * DKA resolved per AM labs. Insulin drip was discontinued overnight and patient was given Lantus 12 units @0122 * Transition to basal + bolus regimen with doses based on home insulin usage * Basal insulin was slightly decreased initially due to NPO status. Pt will resume a diet at dinnertime, therefore additional basal may be given with dinner. * Plan to resume home insulin pump on 3/5 AM. PLAN FOR INPATIENT GLYCEMIC CONTROL: * Basal insulin * Given Lantus 12 units SQ @ 0122 * Additional Lantus 14 units @ 1000 * Lantus 0-5 units SQ x 1 at 1630 (5 units for BSG > 180) * Bolus insulin * NovoLog per scale ACHS or Q6hrs while NPO * Goal Range: Low 120 mg/dL - High 160 mg/dL * Correction Factor: 30 mg/dL/unit * Nutritional / Prandial insulin per carb ratio of 1 unit per 8 grams CHO consumed
--- NOTE | 2019-11-13 15:45 | XCELERA ---
[id number] \\[email or web address]\[id number]_[email or web address]\[id number]
--- NOTE | 2019-11-13 15:48 | Electrocardiogram Report ---
Test Reason : Blood Pressure : / mmHG Vent. Rate : 095 BPM Atrial Rate : 075 BPM P-R Int : 190 ms QRS Dur : 148 ms QT Int : 466 ms P-R-T Axes : 057 -32 055 degrees QTc Int : 585 ms Sinus rhythm with frequent Premature ventricular complexes Possible Left atrial enlargement Left axis deviation Right bundle branch block Abnormal ECG When compared with ECG of 12-NOV-2019 15:27, No significant change was found Confirmed by Joselo Downey ([id number]) on 11/13/2019 3:48:01 PM Referred By: REFERRED SELF Confirmed By:Joselo Downey
--- NOTE | 2019-11-13 15:59 | Electrocardiogram Report ---
Test Reason : Blood Pressure : / mmHG Vent. Rate : 066 BPM Atrial Rate : 066 BPM P-R Int : 194 ms QRS Dur : 148 ms QT Int : 470 ms P-R-T Axes : 084 086 068 degrees QTc Int : 492 ms Normal sinus rhythm Right bundle branch block Abnormal ECG When compared with ECG of 12-NOV-2019 15:59, (unconfirmed) Premature ventricular complexes are no longer Present QRS axis Shifted right QT has shortened Confirmed by Joselo Downey ([id number]) on 11/13/2019 3:59:34 PM Referred By: REFERRED SELF Confirmed By:Joselo Downey
[2019-11-13] MEDS ORDERED: INSULIN GLARGINE SOLOSTAR 100 UNITS/ML 3 ML PEN SC SCH (16:30)
[2019-11-13] MEDS ORDERED: INSULIN ASPART 100 UNITS/ML 3 ML PEN SC SCH (18:00)
[2019-11-13 18:07] LABS: BUN Creatinine Ratio 16.3 (10-20); Calcium 8.7 mg/dl (8.5-10.1); Creatinine Clr Calc Pharmacy 61.4 ml/min; Est GFR (African American) 63.1; Est GFR (Non-African American) 54.4; Phosphorus 2.9 mg/dl (2.5-4.9); Potassium 4.6 mmol/L (3.5-5.1)
[2019-11-13] MEDS: ATORVASTATIN 40 MG TAB PO SCH (20:37)
[2019-11-13 22:31] LABS: BUN Creatinine Ratio 15.6 (10-20); Calcium 8.8 mg/dl (8.5-10.1); Creatinine Clr Calc Pharmacy 60.1 ml/min; Est GFR (African American) 61.4; Phosphorus 2.5 mg/dl (2.5-4.9); Potassium 4.3 mmol/L (3.5-5.1)
[2019-11-14] MEDS: LEVOTHYROXINE SODIUM 150 MCG TABLET PO SCH (06:14)
[2019-11-14] MEDS: PANTOprazole 40 MG TAB PO SCH (07:29)
[2019-11-14] MEDS: CLOPIDOGREL BISULFATE 75 MG TAB PO SCH (07:29)
[2019-11-14] MEDS: ASPIRIN 81 MG ECTAB PO SCH (07:29)
[2019-11-14] MEDS: HEPARIN SOD 5,000 UNIT/0.5 ML VIAL SQ SCH (07:29)
[2019-11-14] MEDS: SULFAMETHOXAZOLE/TRIMETHOPRIM DS 800/160MG TAB PO SCH (07:30)
[2019-11-14] MEDS: METOPROLOL TARTRATE 25 MG TAB PO SCH (07:30)
[2019-11-14] MEDS: AMOXICILLIN 500 MG CAP PO SCH ×2 (07:30→13:15)
[2019-11-14] MEDS: INSULIN ASPART 100 UNITS/ML 3 ML PEN SC SCH ×2 (07:32→12:25)
[2019-11-14 08:37] LABS: Hematocrit (blood only) 34.3 % (42-52); Hemoglobin 10.9 g/dL (14.0-18.0); Mean Corpuscular Hemoglobin 28.8 pg (25-34); Mean Corpuscular Hgb Conc 31.8 g/dL (32-36); Mean Corpuscular Volume 90.5 fL (80-100); Mean Platelet Volume 10.2 fL (7.4-10.4); Platelet Count 228 K/uL (130-400); RDW Coefficient of Variation 13.3 % (11.5-14.5); RDW Standard Deviation 43.9 fL (36.4-46.3); Red Blood Count 3.79 M/uL (4.7-6.1); White Blood Count 5.72 K/uL (4.8-10.8)
--- NOTE | 2019-11-14 08:51 | Cardiology Progress Note ---
Date of Service November 14, 2019 Assessment & Plan (1) Coronary artery disease: (2) S/P aortic valve replacement with bioprosthetic valve: (3) Dyslipidemia: (4) HTN (hypertension), benign: (5) Elevated troponin I level: (6) DKA (diabetic ketoacidoses): ASSESSMENT/PLAN 1. Aortic Stenosis s/p porcine AVR: Asymptomatic. Appropriately functioning bioprosthetic valve on most recent echo. SBE prophylaxis would be recommended however he has no dental procedures as he has full dentures. 2. CAD s/p CABG x 1 (SVG to PDA): No angina. Troponin elevation likely due to DKA. He did not present with acute coronary syndrome. Cardiac catheterization not recommended. Continue anti-platelet therapy, high-intensity statin therapy, and beta-simi. 911 for angina that does not resolve within 5 minutes. 3. Dyslipidemia: Continue high-intensity statin therapy, which he is tolerating well. 4. Peripheral arterial disease: He follows with Dr. Eason and had bilateral lower extremity stents and had right common femoral artery endarterectomy in 2019. Followed in would clinic. 5. Hypertension: Blood pressure elevated morning but was normotensive throughout the day yesterday. Continue beta-simi. 6. Elevated troponin: Likely secondary to DKA. He did not present with angina. No ischemic evaluation recommended at this time. Trop did not rule in for [place]. 7. DKA: As per primary service. 8. Disposition: Can be discharged home from a cardiac perspective. Otherwise, discharge will be determined by primary service as he presented with DKA. Please call with any other questions or concerns. Patient care communicated with Dr. Velasquez, primary hospitalist. He can follow-up as previously scheduled in the cardiology office. Admission and Anticipated Discharge Date Admission Date: November 12, 2019 Anticipated date of discharge: 11/14/19 Subjective Mr. Chowdhury feels well today. He denies chest pain, shortness of breath, syncope, near syncope, palpitations, edema, or bleeding such as melena, hematochezia, or hematuria. He denies angina prior to his presentation. He states that he felt nauseated and tingling throughout his entire body and he felt similar symptoms with prior myocardial infarction. He was found to be in DKA during this hospitalization and symptoms resolved with treatment of his hyperglycemia. Review of systems: As above. Physical Exam Physical Exam: Gen.: No acute distress. Alert and oriented. HEENT: Anicteric sclera. Neck: No JVD Cardiac: No ventricular heave. Regular rate and rhythm. Normal S1-S2. 1/6 early peaking systolic ejection murmur. No rubs, or gallops. Pulmonary: Clear to auscultation bilaterally without wheezes, rales, or rhonchi. Abdomen: Soft, nontender, nondistended, with normoactive bowel sounds. No bruits noted. Extremities: No right radial pulse. 1+ left radial pulse. No significant edema. No cyanosis. Psychiatric: Affect appears appropriate. Results & Data ([facility]) Vital Signs (Past 12 Hours) Vital Signs Temp Pulse Pulse Resp BP Pulse Ox 11/14/19 07:51 36.8 C 67 20 168/65 H 98 11/14/19 03:00 36.8 C 61 20 126/74 97 11/14/19 01:04 65 11/13/19 23:00 36.8 C 66 18 116/74 97 Laboratory Results Laboratory Results - last 24 hr 11/13/19 11/13/19 11/13/19 08:59 08:59 11:19 WBC RBC Hgb Hct MCV MCH MCHC RDW Std Deviation RDW Coeff of Chan Plt Count MPV VBG pH 7.37 Sodium 137 Potassium 4.0 Chloride 108 H Carbon Dioxide 22 Anion Gap 7.0 BUN 25 H Creatinine 1.28 Est Cr Clr Drug Dosing 66.2 Est GFR ( Amer) 69.1 Est GFR (Non-Af Amer) 59.6 BUN/Creatinine Ratio 19.5 Glucose 146 H POC Glucose 141 H Calcium 8.7 Phosphorus 2.4 L Total Bilirubin AST ALT Alkaline Phosphatase Total Protein Albumin Globulin Albumin/Globulin Ratio 11/13/19 11/13/19 11/13/19 13:09 13:09 16:37 WBC RBC Hgb Hct MCV MCH MCHC RDW Std Deviation RDW Coeff of Chan Plt Count MPV VBG pH 7.39 Sodium 138 Potassium 4.3 Chloride 110 H Carbon Dioxide 21 Anion Gap 7.0 BUN 23 H Creatinine 1.19 Est Cr Clr Drug Dosing 71.2 Est GFR ( Amer) 75.4 Est GFR (Non-Af Amer) 65.1 BUN/Creatinine Ratio 19.7 Glucose 134 H POC Glucose 215 H Calcium 8.4 L Phosphorus 2.8 Total Bilirubin AST ALT Alkaline Phosphatase Total Protein Albumin Globulin Albumin/Globulin Ratio 11/13/19 11/13/19 11/13/19 17:29 17:29 20:28 WBC RBC Hgb Hct MCV MCH MCHC RDW Std Deviation RDW Coeff of Chan Plt Count MPV VBG pH 7.37 Sodium 134 L Potassium 4.6 Chloride 107 Carbon Dioxide 23 Anion Gap 4.0 BUN 22 H Creatinine 1.38 Est Cr Clr Drug Dosing 61.4 Est GFR ( Amer) 63.1 Est GFR (Non-Af Amer) 54.4 BUN/Creatinine Ratio 16.3 Glucose 266 H POC Glucose 227 H Calcium 8.7 Phosphorus 2.9 Total Bilirubin AST ALT Alkaline Phosphatase Total Protein Albumin Globulin Albumin/Globulin Ratio 11/13/19 11/13/19 11/14/19 21:58 21:58 00:09 WBC RBC Hgb Hct MCV MCH MCHC RDW Std Deviation RDW Coeff of Chan Plt Count MPV VBG pH 7.42 H Sodium 137 Potassium 4.3 Chloride 108 H Carbon Dioxide 22 Anion Gap 7.0 BUN 22 H Creatinine 1.41 H Est Cr Clr Drug Dosing 60.1 Est GFR ( Amer) 61.4 Est GFR (Non-Af Amer) 53.0 BUN/Creatinine Ratio 15.6 Glucose 194 H POC Glucose 133 H Calcium 8.8 Phosphorus 2.5 Total Bilirubin AST ALT Alkaline Phosphatase Total Protein Albumin Globulin Albumin/Globulin Ratio 11/14/19 11/14/19 11/14/19 04:10 07:31 08:04 WBC 5.72 RBC 3.79 L Hgb 10.9 L Hct 34.3 L MCV 90.5 MCH 28.8 MCHC 31.8 L RDW Std Deviation 43.9 RDW Coeff of Chan 13.3 Plt Count 228 MPV 10.2 VBG pH Sodium Potassium Chloride Carbon Dioxide Anion Gap BUN Creatinine Est Cr Clr Drug Dosing Est GFR ( Amer) Est GFR (Non-Af Amer) BUN/Creatinine Ratio Glucose POC Glucose 117 H 149 H Calcium Phosphorus Total Bilirubin AST ALT Alkaline Phosphatase Total Protein Albumin Globulin Albumin/Globulin Ratio 11/14/19 08:04 WBC RBC Hgb Hct MCV MCH MCHC RDW Std Deviation RDW Coeff of Chan Plt Count MPV VBG pH Sodium Pending Potassium Pending Chloride Pending Carbon Dioxide Pending Anion Gap Pending BUN Pending Creatinine Pending Est Cr Clr Drug Dosing Pending Est GFR ( Amer) Pending Est GFR (Non-Af Amer) Pending BUN/Creatinine Ratio Pending Glucose Pending POC Glucose Calcium Pending Phosphorus Total Bilirubin Pending AST Pending ALT Pending Alkaline Phosphatase Pending Total Protein Pending Albumin Pending Globulin Pending Albumin/Globulin Ratio Pending Diagnostic Findings Echo report reviewed from 11/13/2019: Normal LV systolic function, wall motion. E F 60 to 65%. Telemetry personally reviewed: Sinus rhythm. No arrhythmia. Medications Administered Current Inpatient Medications Acetaminophen (Tylenol) 650 mg PO Q4H PRN PRN Reason: Pain or Fever Stop: 12/12/19 19:53 Amoxicillin (Amoxil) 500 mg PO TID [facility]; Protocol Stop: 11/19/19 20:59 Last Admin: 11/14/19 07:30 Dose: 500 mg Documented by: Aspirin (Ecotrin Ectab) [facility] Stop: 12/13/19 08:59 Last Admin: 11/14/19 07:29 Dose: 81 mg Documented by: Atorvastatin Calcium (Lipitor) [facility] Stop: 12/12/19 20:59 Last Admin: 11/13/19 20:37 Dose: 80 mg Documented by: Clopidogrel Bisulfate (Plavix) 75 mg [facility] Stop: 12/13/19 08:59 Last Admin: 11/14/19 07:29 Dose: 75 mg Documented by: Dextrose (Dextrose 50%) 25 - 50 ml IV UD PRN; Protocol PRN Reason: Hypoglycemia Protocol Stop: 12/12/19 15:58 Glucagon (Glucagen) 1 mg SQ UD PRN; Protocol PRN Reason: Hypoglycemia Protocol Stop: 12/12/19 15:58 Glucose (Dex4 Glucose) 4 - 8 tabs PO UD PRN; Protocol PRN Reason: Hypoglycemia Protocol Stop: 12/12/19 15:58 Glucose (Glucose 40%) 15 - 30 gm PO UD PRN; Protocol PRN Reason: Hypoglycemia Protocol Stop: 12/12/19 15:58 Heparin Sodium (Porcine) (Heparin Sodium (Porcine)) 5,000 units SQ Q12 [facility] Stop: 12/12/19 20:59 Last Admin: 11/14/19 07:29 Dose: 5,000 units Documented by: Prochlorperazine 10 mg/ (Syringe) 10 mls @ 5 mls/min IV Q6H PRN PRN Reason: Nausea And Vomiting Stop: 12/12/19 19:53 Insulin Aspart (Novolog Flexpen) 0 units SC ACHS [facility] Stop: 12/13/19 16:29 Last Admin: 11/14/19 07:32 Dose: Not Given Documented by: Levothyroxine Sodium (Synthroid) 150 mcg PO DAILYBB [facility] Stop: 12/13/19 06:29 Last Admin: 11/14/19 06:14 Dose: 150 mcg Documented by: Metoprolol Tartrate (Lopressor) 12.5 mg PO BID [facility] Stop: 12/12/19 20:59 Last Admin: 11/14/19 07:30 Dose: 12.5 mg Documented by: Miscellaneous (Carbohydrates For Hypoglycemia) 15 - 30 gm PO UD PRN PRN Reason: Hypoglycemia Protocol Stop: 12/12/19 15:58 Miscellaneous Information (Consult Glycemic Management Pharmacy) 1 ea N/A UD PRN PRN Reason: Consult Stop: 12/12/19 22:50 Oxycodone/Acetaminophen (Percocet 5mg/325mg) 1 tab PO TID PRN PRN Reason: pain Stop: 11/26/19 19:53 Pantoprazole Sodium (Protonix) 40 mg PO QAM [facility] Stop: 12/13/19 08:59 Last Admin: 11/14/19 07:29 Dose: 40 mg Documented by: Polyethylene Glycol (Miralax Powder Packet) 17 gm PO DAILY PRN PRN Reason: Constipation Stop: 12/12/19 19:53 Tramadol HCl (Ultram) 50 mg PO Q8H PRN PRN Reason: pain Stop: 12/12/19 19:53 Trimethoprim/Sulfamethoxazole (Septra Ds 800/160mg Tab) 1 tab PO BID [facility] Stop: 11/19/19 20:59 Last Admin: 11/14/19 07:30 Dose: 1 tab Documented by: PG Care Time/CCT Total # of Minutes Spent Total Time Spent with Patient: Total time spent is greater than 50% in coordination of care (as documented) at patient's floor/unit and/or counseling patient: Coding Level of Care Code 38276 Subseq Hosp Care Lvl 3 Diagnoses Coronary artery disease I25.10 Coronary Disease-Associated Artery/Lesion type: [place] artery [place] vs. transplanted heart: [place] heart Associated angina: without angina S/P aortic valve replacement with bioprosthetic valve Z95.3 Dyslipidemia E78.5 HTN (hypertension), benign I10 Elevated troponin I level R79.89 DKA (diabetic ketoacidoses) E10.10 Diabetes mellitus complication detail: without coma Diabetes mellitus type: type 1 (1) Coronary artery disease Coronary Disease-Associated Artery/Lesion type: [place] artery [place] vs. transplanted heart: [place] heart Associated angina: without angina Qualified Code(s): I25.10 - Atherosclerotic heart disease of [place] coronary artery without angina pectoris (2) DKA (diabetic ketoacidoses) Diabetes mellitus complication detail: without coma Diabetes mellitus type: type 1 Qualified Code(s): E10.10 - Type 1 diabetes mellitus with ketoacidosis without coma
[2019-11-14 09:17] LABS: Albumin Globulin Ratio 0.8 (0.9-2); Albumin Level 3.1 gm/dl (3.4-5.0); BUN Creatinine Ratio 16.5 (10-20); Bilirubin,Total 0.5 mg/dl (0.2-1); Calcium 9.1 mg/dl (8.5-10.1); Creatinine Clr Calc Pharmacy 75.2 ml/min; Est GFR (Non-African American) 70.8; Globulin 3.8 gm/dl (2.5-4.0); Potassium 4.3 mmol/L (3.5-5.1); Total Protein 6.9 gm/dl (6.4-8.2)
--- NOTE | 2019-11-14 09:20 | Discharge Summary ---
Date of Service November 14, 2019 Admission HPI Per Admitting Provider Mr. Chowdhuyr is a 64 year old male with past medical history of Type I DM, Chronic osteomyelitis of the feet, Kidney stones, Peripheral vascular disease, CAD, Aorto-iliac disease, HTN, Hypothyroidism, Aortic valve replacement, HLD who presented with nausea/indigestion. Pt. has a h/o MT in 2014 following vascular intervention with Dr. Rubio along with aortic valve replacement and CABG x1 in 2016 at [facility]. He developed similar symptoms compared to prior cardiac event today around 12:15 pm. Patient had nausea along with "indigestion" -- described as a constant sternal discomfort. He has an insulin pump but does not think pump was functioning properly at home to administer insulin correctly. BG was >400 after presenting to the ER. He denies headache, vision changes, shortness of breath, vomiting, abd pain, diarrhea or constipation, dysuria or hematuria, urinary frequency. ER course: Labs c/w diabetic ketoacidosis. Insulin drip and IV fluids were started. Zofran was administered for nausea. EKG showed known RBBB, no significant ST-T wave changes. Initial troponin was negative. Will admit for treatment of DKA and cardiac work up. Principal Diagnosis Hyperglycemia, mild DKA due to insulin pump malfunction Discharge Exam Constitutional WD/WN, vitals as above Eyes PERRL, conjunctivae normal, anicteric sclerae ENMT external ear and nose normal, oropharynx normal Neck trachea midline, no thyromegaly Respiratory normal respiratory effort, lungs clear to auscultation Cardiovascular RRR, no murmur, no edema Gastrointestinal (Abdomen) normal bowel sounds, soft, nontender, no hepatosplenomegaly Musculoskeletal no cyanosis or clubbing, extremities motor strength 5/5 Skin no rashes, warm and dry Neurologic patellar DTR's 2+ bilat, sensation intact and PERRL, EOMI, accommodation nl, no face palsy, no dysarthria Psychiatric A+Ox3, euthymic affect Lymphatic no cervical or axillary lymphadenopathy Discharge Data Allergies Allergy/AdvReac Type Severity Reaction Status Date / Time No Known Allergies Allergy Unknown Verified 11/12/19 15:16 Consultations 11/12/19 16:34 ED Decision to Admit Stat 11/12/19 19:54 Consult Case Management - Discharge Planning Routine 11/13/19 08:17 Consult Cardiology Routine Hospital Course (1) DKA (diabetic ketoacidoses): - due to kink in tubing of insulin pump, acidosis completely resolved with Lantus and Novolog less than 24 hours into admission resumed pump the morning of discharge has plan to get new delivery system with pump, he already d/w pump rep stop IV fluids day prior to discharge diabetic diet (2) High anion gap metabolic acidosis: resolved with insulin administration (3) Nausea: due to DKA completely resolved day 1 of admission (4) Chest pain: -he denies ever having chest pain after admission EKG showed sinus rhythm with RBBB, no obvious ischemia troponin was 0.00 x 2 then bumped to 0.1 and 0.3 asked cardiology to evaluate echocardiogram done, EF normal, no wall motion abnormalities no further work up per cardiology, he can go home (5) Coronary artery disease: - H/o "mild" MT in 2014 following vascular intervention. - H/o CABG x 1 during aortic valve replacement in 2015 at [facility]. - Continue cardiac meds. Cardiac work up as noted above. - Follows with [facility] cardiology. (6) Peripheral vascular disease: - S/p B/L iliac artery stents 2014, R common/external iliac 2017, R common femoral endarterectomy 11/2018 with bovine patch. - Continue Plavix, ASA, statin as prescribed. (7) Aorto-iliac disease: - S/p B/L ILIAC STENT PLACEMENT BY DR. RUBIO IN 2014. (8) Acute renal failure: - Creatinine 1.68, baseline ~1.0-1.1 - IV fluids at 125 cc/hr. Cr down to 1.19 day prior to admission, RAIN resolved (9) Diabetic foot ulcer associated with type 1 diabetes mellitus: - Follows with the wound clinic, Dr. Neville, and ID, Dr. Ennis for bilateral feet wounds, chronic osteomyelitis. - Most recently status post debridement on 11/05. - Continue Amoxicillin and Bactrim -- most recent wound culture +VRE and Pseudomonas. - Consult wound nurse for dressing changes. (10) S/P aortic valve replacement with bioprosthetic valve: - In 2015 at [facility]. (11) HTN (hypertension), benign: - Continue Metoprolol 12.5 mg BID. (12) Hypothyroidism: - Continue Levothyroxine as prescribed. - TSH was 0.9 in Jul 2019. (13) Dyslipidemia: - Continue statin as prescribed. (14) GERD (gastroesophageal reflux disease): - PPI daily. (15) Anemia: - Hgb baseline ~11. it is 10.6 day prior to discharge Total Time Total Time Spent Total Time Spent (In Minutes): 32 minutes Total Time Includes: Examination of the Patient, Discharge Planning, Medication Reconciliation and Communication With Other Providers (Dr. Downey) Discharge Plan Discharge Items Patient Disposition: Home - Self-Care Reason For Visit: HYPERGLYCEMIA,CHEST PAIN Discharge Diagnosis: Mild DKA, quickly resolved Chest pain H/o coronary artery disease Condition on Discharge: Good Goals: improve glycemic control follow up closely with endocrinology Activity: Resume your previous activity Non-emergency contact: Primary Care Provider Call non-emergency contact if: you have any medication questions Follow-up/Referrals: Enio Richards III, MD [Primary Care Provider] - 11/20/19 2:00 pm (Please call either [phone] or [phone] if you need to reschedule. You appointment will be with Ami Chavarria) Diet: Carb Count or DM1 and Heart Healthy Addtl Attending Provider Instructions: Medications: no changes DKA (mild) due to malfunction of insulin pump resolved quickly with infusion of insulin, transitioned to Lantus and Novolog while here please resume insulin pump on discharge, follow up closely with endocrinology about pump Chest pain, minimal elevation in troponin normal echocardiogram no ischemic changes on EKG Pending Studies at Discharge: No Stand-Alone Forms: My [facility] Air Button, Smoking Cessation Medications and DC Order Prescriptions: Continued aspirin 81 mg tablet,delayed release (DR/EC) 81 mg PO QAM RF: 0 meclizine 25 mg tablet 25 mg PO BID PRN (Reason: Dizziness) RF: 0 pantoprazole [Protonix] 40 mg tablet,delayed release (DR/EC) 40 mg PO QAM Qty: 30 RF: 5 atorvastatin [Lipitor] 80 mg tablet 80 mg PO HS Qty: 30 RF: 11 sulfamethoxazole-trimethoprim [Bactrim DS] 800-160 mg tablet 1 tab PO BID PRN (Reason: infected wound) 14 Days Qty: 28 RF: 6 triamcinolone acetonide 0.1 % ointment 1 appln topical BID PRN (Reason: skin ) Qty: 1 RF: 0 (DME) pen needle, diabetic [BD Ultra-Fine Kady Pen Needle] 32 gauge x 5/32" needle See Dose Instructions .ROUTE .MEDSUPPLY Qty: 10 RF: 0 (DME) insulin syringe-needle U-100 [BD SafetyGlide Insulin Syringe] 0.5 mL 30 gauge x 5/16" syringe See Dose Instructions .ROUTE .MEDSUPPLY Qty: 10 RF: 0 (DME) blood sugar diagnostic strip See Dose Instructions .ROUTE .MEDSUPPLY Qty: 10 RF: 0 (DME) blood-glucose meter kit See Dose Instructions .ROUTE .MEDSUPPLY Qty: 1 RF: 0 amoxicillin 500 mg capsule 500 mg PO TID Qty: 90 RF: 0 levothyroxine 150 mcg tablet 150 mcg PO QAM RF: 0 metoprolol tartrate 25 mg tablet 12.5 mg PO BID RF: 0 clopidogrel [Plavix] 75 mg Tablet 1 tab PO QAM RF: 0 insulin aspart U-100 [Novolog U-100 Insulin aspart] 100 unit/mL solution 1 unit SQ UD RF: 0 tramadol [Ultram] 50 mg tablet 50 mg PO Q8H PRN (Reason: pain) RF: 0 oxycodone-acetaminophen [Percocet] 5-325 mg tablet 1 tab PO TID PRN (Reason: pain) Qty: 6 RF: 0 Discharge Orders: Discharge Order (Routine); Ordered 11/14/19 Ordered By: Lazaro Velasquez Admission Data Admit Date/Time: 11/12/19 17:00 Attending Provider: Lazaro Velasquez Admit Provider: Memo Maria Primary Care Provider: Enio Richards III Other Providers: Memo Maria ; Anish Dickerson Other Interventions: Discharge Summary Assessment (RN) Last Done: 11/14/19 13:17 DC Date/Time DO NOT enter until pt leaves facility: 11/14/19 15:10 Coding Level of Care Code D/C Day Management >30 mins Diagnoses DKA (diabetic ketoacidoses) E10.10 Diabetes mellitus complication detail: without coma Diabetes mellitus type: type 1 High anion gap metabolic acidosis E87.2 Nausea R11.0 Chest pain R07.9 Chest pain type: unspecified Coronary artery disease I25.10 Associated angina: without angina Coronary Disease-Associated Artery/Lesion type: [place] artery [place] vs. transplanted heart: [place] heart Peripheral vascular disease I73.9 Aorto-iliac disease I74.09 Acute renal failure N17.9 Diabetic foot ulcer associated with type 1 diabetes mellitus E10.621; L97.516 Diabetic foot ulcer location: unspecified part of foot Laterality: right Non-pressure ulcer stage: with bone involvement without evidence of necrosis S/P aortic valve replacement with bioprosthetic valve Z95.3 HTN (hypertension), benign I10 Hypothyroidism E03.9 Hypothyroidism type: acquired Dyslipidemia E78.5 GERD (gastroesophageal reflux disease) K21.9 Anemia D64.9
[2019-11-14] MEDS ORDERED: NovoLIN-R INSULIN PER UNIT CHARGE SQ ONE (10:30)
[2019-11-14] MEDS ORDERED: INSULIN ASPART 100 UNITS/ML 3 ML PEN SC ONE ×3 (10:30→12:15)
[2019-11-14] MEDS ORDERED: INSULIN ASPART 100 UNITS/ML VIAL SC PRN (12:30)
--- NOTE | 2019-11-14 13:25 | Pharmacy Report ---
Pharmacy Glycemic Short Note 2 - Date of Service November 14, 2019 - Glycemic Short BSG Results (Last 24 hours): 11/13/19 11/13/19 11/13/19 13:09 16:37 17:29 Glucose 134 H 266 H POC Glucose 215 H 11/13/19 11/13/19 11/14/19 20:28 21:58 00:09 Glucose 194 H POC Glucose 227 H 133 H 11/14/19 11/14/19 11/14/19 04:10 07:31 08:04 Glucose 161 H POC Glucose 117 H 149 H 11/14/19 11/14/19 11/14/19 10:16 11:24 12:02 Glucose POC Glucose 295 H 394 H* 350 H* OUTPATIENT ANTIDIABETIC REGIMEN: * Novolog pump * basal: 1.3 units/hr * bolus: CF 40 (for BSG > 120), CR 8 * total usage: 55-60 units per day * A1c 10.1% 11/12/19 ASSESSMENT: 11/13: * Mr. Chowdhury received 52 units of SQ insulin yesterday which is similar to home usage * 31 units of basal * 21 units of bolus * BSGs ranged from 141-242 mg/dL * Fasting BSG at goal, 149 mg/dL * The plan was to transition patient back to insulin pump this morning. This has been delayed due to missing components of pump/Dexcom. Daughter to supply remainder of supplies this afternoon. * Severe hyperglycemia around lunchtime due to lack of carbohydrate coverage with breakfast (pt reports eating toast, jelly, and milk) and basal deficiency with delay in resuming pump. * Will attempt to correct hyperglycemia with Novolog boluses and resume pump at 1400 pending supplies. 11/12: * Mr. Chowdhury is a 64 yo T1DM male on insulin pump as an outpatient * He was started on an IV insulin infusion upon admission for mild DKA. Pt suspects pump administration set was placed incorrectly, therefore he was received partial doses of insulin. He states this happened once before. * DKA resolved per AM labs. Insulin drip was discontinued overnight and patient was given Lantus 12 units @0122 * Transition to basal + bolus regimen with doses based on home insulin usage * Basal insulin was slightly decreased initially due to NPO status. Pt will resume a diet at dinnertime, therefore additional basal may be given with dinner. * Plan to resume home insulin pump on 3/5 AM. PLAN FOR INPATIENT GLYCEMIC CONTROL: * Novolog 6 units @ 1057 * Novolog 17 units total @ 1224 * 9 units for correction and basal coverage * 8 units for carb coverage * Resume Novolog insulin pump at home settings @ 1400
[2019-11-14] MEDS ORDERED: NovoLOG INSULIN PUMP SCH (14:00)
--- NOTE | 2019-11-14 18:03 | Electrocardiogram Report ---
Test Reason : Blood Pressure : / mmHG Vent. Rate : 067 BPM Atrial Rate : 067 BPM P-R Int : 170 ms QRS Dur : 142 ms QT Int : 462 ms P-R-T Axes : 064 068 050 degrees QTc Int : 488 ms Normal sinus rhythm Right bundle branch block Abnormal ECG When compared with ECG of 13-NOV-2019 06:43, No significant change was found Confirmed by Anish Dickerson ([id number]) on 11/14/2019 6:03:34 PM Referred By: REFERRED SELF Confirmed By:Anish Dickerson
[2019-11-15] MEDS ORDERED: INSULIN ASPART 100 UNITS/ML 3 ML PEN SC ONE (12:00)
== END 2019-11-14 15:10 | disposition home or self-care (01) | DRG 919 ==
LOC: ED 13:43 → SUATTDRO 17:00 → 2W 17:00

== ENCOUNTER 2020-06-29 07:04 | Inpatient (IN) ==
--- NOTE | 2020-06-18 08:55 | Anesthesiology Consultation ---
Date of Service June 18, 2020 Assessment & Plan (1) Encounter for pre-operative examination: Chart Review Chart Review: Acceptable Risk for Surgery (pending labs AM of surgery and preop Covid testing ) and Patient NOT seen in Pre Admission Testing CBC with diff, PRP, PT/PTT/INR ordered AM of surgery. - Check BSG AM DOS Per nursing assessment 06/17/20, pt resides in [facility]. Denies recent travel. Wears mask in public. No known Covid positive contacts or Covid related symptoms. Scheduled for preop Covid testing 06/18/20 at [place]. Seen for preop cardio clearance 06/17/20= "He is currently stable from a cardiovascular standpoint with no anginal symptoms. He has no signs or symptoms of CHF. His most recent echocardiogram on 11/13/19 demonstrated normal LV systolic function with an appropriately functioning bioprosthetic aortic valve. Heart rate and blood pressure are well controlled. Given this information, the patient is at an acceptable risk to proceed with upcoming surgery without any additional cardiovascular testing or intervention. Recommend he remain on his beta simi therapy throughout the perioperative period. Recommend close monitoring and avoidance of hypotension, hypertension, tachycardia, hypoxia, and significant anemia throughout the perioperative period to reduce myocardial oxygen demand and meet myocardial oxygen delivery." Cysto, ureteroscopy, laser litho, stents 08/26/19= Done under [facility] with LMA #5 i- Gel. No anesthesia issues noted per record History Surgery Operation Date: 06/23/20 09:50 Proposed Procedures p Left Lower Extremity Femoral Popliteal Insitu Bypass, Possible Prosthetic Bypass Graft - Floyd Rubio MD Height/Weight Height: 5 ft 8 in Weight: 93.44 kg Allergies Allergy/AdvReac Type Severity Reaction Status Date / Time No Known Allergies Allergy Unknown Verified 06/17/20 13:57 Medications Home Medications Medication Instructions Recorded Confirmed Last Taken aspirin 81 mg tablet,delayed 81 mg PO QAM tab 05/10/18 06/17/20 06/12/20 05:00 release clopidogrel [Plavix] 1 tab PO QAM 11/09/18 06/17/20 06/12/20 05:00 atorvastatin 80 mg tablet 80 mg PO HS #30 tab 10/28/19 06/17/20 06/11/20 23:00 metoprolol tartrate 25 mg tablet 12.5 mg PO BID #90 tab 12/31/19 06/17/20 06/12/20 05:00 insulin aspart U-100 100 unit/mL 60 units SQ UD ml 04/14/20 06/17/20 06/12/20 07:26 subcutaneous solution insulin syringe-needle U-100 0.5 #10 ea 04/14/20 06/17/20 Unknown mL 30 gauge x 01/24" levothyroxine 150 mcg tablet 150 mcg PO QAM #30 tab 04/23/20 06/17/20 06/12/20 05:00 pantoprazole 40 mg tablet,delayed 40 mg PO QAM #30 tab 04/27/20 06/17/20 06/12/20 05:00 release cephalexin 500 mg capsule 500 mg PO qid #40 cap 06/15/20 06/17/20 Unknown calcitriol 0.25 mcg PO QAM 06/17/20 06/17/20 Unknown Past Medical History Medical History Anemia Aortic stenosis s/p porcine valve 10/29/15 with CABG x 1 CAD (coronary artery disease) s/p CABG x 1 2015. Diabetic autonomic neuropathy associated with type 1 diabetes mellitus Diabetic ulcer of left heel associated with type 1 diabetes mellitus, with fat layer exposed Diabetic ulcer of right heel associated with type 1 diabetes mellitus Dyslipidemia History of kidney stones Hypertension Hypothyroidism Iliac artery stenosis, bilateral PAD (peripheral artery disease) Proliferative diabetic retinopathy associated with type 1 diabetes mellitus PVD (peripheral vascular disease) s/p B/L iliac artery stents 2014, R common/external iliac 2017, R common femoral endarterectomy 11/2018 with bovine patch. 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 Past Family History Family History Brother Family history of diabetes mellitus Sister Family history of diabetes mellitus Mother Family history of diabetes mellitus Grandmother (Maternal) Family history of diabetes mellitus Uncle Family hx of colon cancer Colorectal cancer Father Family history of esophageal cancer Other No family history of adverse response to anesthesia Denies family history of Ovarian cancer Prostate cancer Myocardial infarction Breast cancer Past Surgical History Surgical History H/O cataract extraction BILATERALLY H/O endarterectomy R common femoral 12/07/18 History of ankle surgery LEFT ANKLE PINNING. History of aortic valve replacement 2015 - [place] History of cardiac cath 2015 [place], NO STENTS History of colonoscopy History of coronary artery bypass graft 2016, AORTIC VALVE REPLACEMENT, CABG X1. [facility] History of esophagogastroduodenoscopy (EGD) History of herniorrhaphy UMBILICAL History of open reduction and internal fixation (ORIF) procedure left leg 1970s History of surgery 12/07/18 right common femoral endarterectomy with bovine pericardial angioplasty History of umbilical hernia repair History of vitrectomy LEFT EYE S/P AVR S/P CABG x 1 S/P insertion of iliac artery stent B/L ILIAC STENT PLACEMENT BY DR. RUBIO IN 2014 Status post partial amputation of left foot Social History Smoking Status: Former smoker tobacco type: cigarettes Smoking cigarettes per day: QUIT 15 YEARS AGO. HX OF 2 PPD "WASTED A LOT" Do You Dip or Chew Tobacco: No Smoking End Date: QUIT 15 YEARS AGO Hx Alcohol Use: No Alcohol type: beer alcohol intake frequency: holidays/special occasions only Hx Substance Use: No substance use type: does not use Testing Laboratory Results 06/12/20= BUN:14 CREAT: 0.95 04/13/20= HGB A1C: 9.1 Electrocardiogram Date: 11/12/19 Findings: + NSR @ (67) RBBB. Chest X-Ray Date: 11/12/19 Findings: + NAD Chronic blunting of the right costophrenic angle. Echocardiogram Date: 11/13/19 EF: 60-65% LV Function: normal RWMA: + none Other Findings: + LVH (moderate/concentric) AV and PV not well visualized. Mild TR. Left and right atrium mildly dilated. Grade II diastolic dysfunction Cardiac Catheterization Date: 10/12/15 Coronary Angiography: 1. Left Main Coronary Artery: Distal LMCA 20%. 2. Left Anterior Descending: Proximal LAD 20%. Mid LAD 50% at bifurcation of 2nd diagonal. Remainder of LAD and diagonal vessels (1, 2, and 3) are without significant CAD. 3. Circumflex: No angiographic evidence of significant CAD with circumflex or obtuse marginal vessels (OM1 and OM2). 4. Right Coronary Artery: Dominant vessel. Ostial RCA appears severely stenotic (70%) with ventricularization of arterial wave-form. Ostial RCA appears heavily calcified. Mid RCA 30%. Distal RCA 40%. Luminal irregularities noted throughout RCA. Large PDA and posterior lateral branch without angiographic evidence of significant CAD. 5. Heavily calcified aortic valve noted on fluoroscopy. Calcifications also noted within the LAD and RCA system. 6. Aortic valve was not crossed and there were no attempts to cross due to known severe aortic stenosis. Impression: 1. Severe ostial RCA CAD suggested. 2. Nonobstructive CAD within remainder of RCA, distal LMCA, and proximal and mid LAD. 3. Known symptomatic severe aortic stenosis. Planned for AVR and consideration of CABG for RCA.
[~2020-06-29 07:04] MED LIST changes: -ASPI81TA28 PO; -ATOR-26 PO; -CALC-393 PO; -CEFA1TAB PO; -CHOL2000 PO; -CLOP1TAB15 PO; -FSM70 PO; +GLYCOPYRROLATE 0.2 MG/ML VIAL ONE; -INSDGI SC; -INSU1INJ2 SQ; -LEVO175T3 PO; +LIDOCAINE HCL 2% 2 ML VIAL/AMP(20MG/ML) INFIL ONE; -LOSA1TAB PO; -LPR25 PO; +MIDAZOLAM HCL 1 MG/ML 2ML VIAL ONE; -PANT40TA PO; +PROPOFOL IV EMULSION 10 MG/ML 20 ML VIAL IV ONE; +ROCURONIUM BROMIDE 10 MG/ML 5 ML VIAL IV ONE; +SODIUM CHLORIDE 0.9% 1000ML IV SCH; +ceFAZolin 2000MG 2,000 MG/15 ML SYR IV SCH; +fentaNYL citrate 100 MCG/2 ML VIAL ONE
[2020-06-29 08:07] LABS: Basophils # (auto) 0.04 K/uL (0-0.2); Basophils % (auto) 0.4 %; Eosinophils # (auto) 0.26 K/uL (0-0.5); Eosinophils % (auto) 2.8 %; Hematocrit (blood only) 37.9 % (42-52); Hemoglobin 12.2 g/dL (14.0-18.0); Immature Granulocytes # (auto) 0.02 K/uL (0.00-0.02); Immature Granulocytes % (auto) 0.2 %; Lymphocytes # (auto) 1.75 K/uL (1.2-3.4); Lymphocytes % (auto) 18.9 %; Mean Corpuscular Hemoglobin 27.7 pg (25-34); Mean Corpuscular Volume 86.1 fL (80-100); Mean Platelet Volume 10.3 fL (7.4-10.4); Monocytes # (auto) 0.75 K/uL (0.11-0.59); Monocytes % (auto) 8.1 %; Neutrophils # (auto) 6.42 K/uL (1.4-6.5); Neutrophils % (auto) 69.6 %; Platelet Count 325 K/uL (130-400); RDW Coefficient of Variation 14.4 % (11.5-14.5); RDW Standard Deviation 45.5 fL (36.4-46.3); White Blood Count 9.24 K/uL (4.8-10.8)
[2020-06-29 08:14] LABS: Mean Corpuscular Hgb Conc 32.2 g/dL (32-36)
[2020-06-29 08:26] LABS: Partial Thromboplastin Ratio 0.9; Partial Thromboplastin Time 25.8 Seconds (21.0-31.0); Prothrombin Time 10.9 Seconds (9.0-12.0)
[2020-06-29 08:34] LABS: BUN Creatinine Ratio 15.5 (10-20); Calcium 9.7 mg/dl (8.5-10.1); Creatinine Clr Calc Pharmacy 69.7 ml/min; Est GFR (African American) 73.4; Est GFR (Non-African American) 63.3; Potassium 3.4 mmol/L (3.5-5.1)
[2020-06-29] MEDS ORDERED: IODIXANOL (VISIPAQUE) 270 MG/ML 50ML ONE (09:33)
[2020-06-29] MEDS ORDERED: THROMBIN 5000 UNITS KIT ONE (09:33)
[2020-06-29] MEDS ORDERED: PAPAVERINE HCL INJ 30 MG/ML 2 ML VIAL ONE (09:33)
[2020-06-29] MEDS ORDERED: LIDOCAINE HCL 1% 20 ML VIAL ONE (09:33)
[2020-06-29] MEDS ORDERED: GELATIN SPONGE SZ 100 ONE (09:33)
[2020-06-29] MEDS ORDERED: HEPARIN (PORCINE) 1000 UNIT/ML 10 ML (CATH LAB USE ONLY) ONE (09:33)
[2020-06-29] MEDS ORDERED: EPINEPHrine INJ 1 MG/ML AMP ONE (09:34)
[2020-06-29] MEDS ORDERED: BUPIVACAINE 0.5 % 5 MG/1 ML MPF 30ML VIAL ONE (09:34)
[2020-06-29] MEDS ORDERED: THROMBIN FOR SOLN 20000 UNIT KIT ONE (09:34)
[2020-06-29] MEDS ORDERED: ONDANSETRON INJ 2 MG/ML 2 ML VIAL IV PRN ×2 (09:45→16:05)
[2020-06-29] MEDS ORDERED: HYDROmorphone INJ 1 MG/ML SYRINGE IV PRN (09:45)
[2020-06-29] MEDS ORDERED: LABETALOL HCL IV 5 MG/ML 20ML IV PRN (09:45)
[2020-06-29] MEDS ORDERED: ATROPINE SULFATE 0.1 MG/ML 10ML SYR IV PRN (09:45)
--- NOTE | 2020-06-29 09:48 | History & Physical Report ---
Date of Service June 29, 2020 History of Present Illness Primary Care Provider: [place] [address] History & Physical Report Signed Patient: BRANDON CHOWDHURY JrAdmit Date: 06/12/20 MR#: [id number] Phy: Floyd Rubio M.D. Acct ID:[id number] Phy: Enio Richards, CELSO, Date: 1955Fam Phy: Age: 65Location: [facility] Sex: M Room/Bed: cc: ~ *NOTICE TO RECEIVING REPUBLICAN/AGENCY This information is strictly Confidential and protected under [place] law. [place] law prohibits you from making any further disclosure of this information unless further disclosure is expressly permitted by the written consent of the person to whom it pertains or is authorized by law. A general authorization for the release of medical or other information is not sufficient for this purpose. Hospital accepts no responsibility if the information is made available to any other person, INCLUDING THE PATIENT. Date of Service June 12, 2020 History of Present Illness Primary Care Provider: Enio Richards MD Name: BRANDON CHOWDHURY JR Patient Number: [id number] : 1955 Date of Service: 05/28/2020 Chief Complaint: _Patient requested appointment for reevaluation of PAD due to worsening of left leg wound HPI: _Mr. Chowdhury is a longstanding vascular patient of Dr. Rubio'elba who was seen today at his request after he was informed that the left lateral leg wound has worsened. Patient has previously undergone multiple attempts at revascularization most recently with angiography without intervention. Patient has noted SFA occlusions and discussions have been had with the patient in the past regarding limited surgical options including femoral to distal artery bypass. During previous visits here as recently as a few weeks ago, patient indicated that his wounds were improving. He states that since that time he has had significant worsening in the wound to the lateral side of his left leg and now has exposed tendon. He states that the wound clinic was using a wound VAC to the area, however, they have stopped using it due to the increased tendon exposure. Patient denies any new complaints of pain. He denies any other new complaints as well. He did not have imaging prior to today's visit. Current Home Meds: (Last Updated 05/28 09:07) aspirin 81 mg PO Daily atorvastatin (atorvastatin 80 mg oral tablet) 80 mg PO Daily calcitriol (Rocaltrol 0.25 mcg oral capsule) 0.25 mcg PO Daily clopidogrel (clopidogrel 75 mg oral tablet) take 1 tablet by mouth once daily insulin aspart (NovoLOG) sliding scale sub q injections, basal and bolus levothyroxine (levothyroxine 150 mcg (0.15 mg) oral tablet) 150 mcg PO Daily meclizine (meclizine 25 mg oral tablet) 25 mg PO tid PRN: as needed for dizziness metoprolol (metoprolol tartrate 25 mg oral tablet) 12.5 mg PO bid pantoprazole (pantoprazole 40 mg oral delayed release tablet) 40 mg PO Daily Allergies and Sensitivities: NKA Past Medical History: Problems: Right ankle pain S/P orthopedic surgery, follow-up exam Pre-op exam Diabetic foot ulcer (atherosclerosis) Tobacco user Aortoiliac stenosis Leg ulcer Peripheral arterial disease Diabetes mellitus Gastric reflux DIARRHEA Arthritis Heart murmur Weight disorder Thyroid disease OBJECTIVE Vitals: Last Updated 05/28/20 09:15 Date Temp BP Location Pulse RR SpO2 Pain 05/28/20 104/62 Right Arm 79 98 05/04/20 0 05/04/20 108/64 Left Arm 67 98 Vital Signs are the last 3 within [facility]. No Orthostatic Data Available Height and Weight: Last Updated 08/23/17 08:37 Date BMI Wt(kg) Wt(lb) Method Ht(cm) (ft-in) Method 08/23/17 31.32 93.44 206 Patient stated 172.72 5-8 08/22/16 29.53 88.1 194 Standing Scale 172.72 5-8 Patient stated 02/24/16 29.04 86.64 191 172.72 5-8 Heights and Weights are the last 3 within [facility]. Physical Exam _ Constitutional: In general patient is healthy-appearing well-nourished well- developed middle-aged male no distress. He is alert and oriented. He has no focal neurological deficits. His heart is regular with murmur. Lungs are decreased slightly but clear. Abdomen is soft and nontender. Lower extremity distal pulses are nonpalpable. He has brisk capillary refill to the toes. Images of the patient's left lateral leg wound were reviewed at length today. ASSESSMENT: _ PLAN: _ 1 ) _peripheral arterial disease with worsening left lower leg wounds. Patient was also seen by Dr. Rubio today who recommends that patient undergo left leg angiography for surgical planning. He will also have a new vein mapping performed to reevaluate his saphenous vein for bypass conduit. We will then discuss what surgical options are available with the patient. According to images, wound bed itself appears essentially healthy with some pink granulation, however, there is a considerable amount of tendon visible. We will keep you informed as to the outcome of surgical decision making. Patient is agreeable to this plan. Thank you for letting us participate in the care of this patient. 6 ) _ Signature Line Electronic Signature on File CC: Enio Richards III, MD [address] [place] [id number] * CC: Anish Dickerson MD [address] [facility] [address] [facility] [address] * CC: Keith Neville, [address] [facility] [address] [facility] [address] * Electronically Reviewed/Signed by: Bekah Rodriges PA-C Author Signature Dt/Tm:05/28/2020 01:07 PM [facility] [address] [place] [address] Electronically Reviewed/Signed by: Floyd Rubio MD Cosigner Signature Dt/Tm: 06/01/2020 09:39 AM Bottoming Room Supervisor [facility] [address] [place] [address] LM Result Type: HVI Outpt Note Date of Service: May 28, 2020 13:01 EDT Authorization Status: Final Author or Import Date: ANDRES Rodriges Lynn on May 28, 2020 13:07 EDT Verified By: MD Rubio Eugene J on June 01, 2020 09:39 EDT Encounter info: [id number], [place] [address], Clinic, 05/28/2020 - 05/28/2020 Allergies Allergy/AdvReac Type Severity Reaction Status Date / Time No Known Allergies Allergy Unknown Verified 06/12/20 07:21 Home Medications Home Medications Medication Instructions Recorded Confirmed Type aspirin 81 mg tablet,delayed 81 mg PO QAM tab 05/10/18 06/12/20 History release clopidogrel [Plavix] 1 tab PO QAM 11/09/18 06/12/20 History atorvastatin 80 mg tablet 80 mg PO HS #30 tab 10/28/19 06/12/20 Rx metoprolol tartrate 25 mg tablet 12.5 mg PO BID #90 tab 12/31/19 06/12/20 Rx insulin aspart U-100 100 unit/mL 60 units SQ UD ml 04/14/20 06/12/20 History subcutaneous solution insulin syringe-needle U-100 0.5 #10 ea 04/14/20 06/10/20 History mL 30 gauge x 01/24" calcitriol 0.25 mcg capsule 0.25 mcg PO DAILY #90 cap 04/15/20 06/12/20 Rx levothyroxine 150 mcg tablet 150 mcg PO QAM #30 tab 04/23/20 06/12/20 Rx pantoprazole 40 mg tablet,delayed 40 mg PO QAM #30 tab 04/27/20 06/12/20 Rx release Past Med/Surg History Medical History Anemia Aortic stenosis s/p porcine valve 10/29/15 with CABG x 1 BPPV (benign paroxysmal positional vertigo) CAD (coronary artery disease) s/p CABG x 1 2015. Colon polyps Diabetic autonomic neuropathy associated with type 1 diabetes mellitus Diabetic ulcer of left heel associated with type 1 diabetes mellitus, with fat layer exposed Diabetic ulcer of right heel associated with type 1 diabetes mellitus Dyslipidemia History of kidney stones Hypertension Hypothyroidism Iliac artery stenosis, bilateral PAD (peripheral artery disease) Proliferative diabetic retinopathy associated with type 1 diabetes mellitus PVD (peripheral vascular disease) s/p B/L iliac artery stents 2014, R common/external iliac 2017, R common femoral endarterectomy 11/2018 with bovine patch. 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 History of aortic valve replacement 2016 - LIKELY History of colonoscopy History of coronary artery bypass graft 2016, AORTIC VALVE REPLACEMENT, CABG X1. [facility] History of esophagogastroduodenoscopy (EGD) History of herniorrhaphy UMBILICAL History of open reduction and internal fixation (ORIF) procedure left leg 1970s History of surgery 12/07/18 right common femoral endarterectomy with bovine pericardial angioplasty History of vitrectomy LEFT EYE S/P aortic valve replacement with bioprosthetic valve S/P AVR S/P CABG x 1 S/P insertion of iliac artery stent B/L ILIAC STENT PLACEMENT BY DR. RUBIO IN 2015 Status post partial amputation of left foot currently in a walking cast on left leg Family History Brother Family history of diabetes mellitus Sister Family history of diabetes mellitus Mother Family history of diabetes mellitus Grandmother (Maternal) Family history of diabetes mellitus Uncle Family hx of colon cancer Colorectal cancer Father Family history of esophageal cancer Other No family history of adverse response to anesthesia Denies family history of Ovarian cancer Prostate cancer Myocardial infarction Breast cancer Social History Smoking Status: Unknown if ever smoked Tobacco Type: Cigarettes and Smokeless Tobacco (Dip or Chew) Cigarettes Per Day: QUIT 15 YEARS AGO. HX OF 2 PPD "WASTED A LOT"; Second Hand Exposure: Yes (family member smoked); Hx Alcohol Use: No Hx Substance Use: No Preferred Language: [place] Islander Communication Ability: Effective Visual Impairment: Limited Hearing Ability: Normal Bisque Brusher Required: No Beliefs That Will Affect Care: None marital status: Current Living Situation: Other Current Living Situation Comment: roomate How many Children do You have: 2 Other Information That Helps Us Care for You: No Feels Safe at Home: Yes Safety Concerns: Feels Safe At This Time Childhood Exposure to Second-Hand Smoke: Yes Diet Comment: Carb Counts. (5465-2951, roughly) caffeine: Yes (coffee, rarely ) during the past year weight has: remained stable Dental Care, Regularly: No Physical Activity Frequency: 1-2 Times per Week Seatbelt Use: always Sunscreen Use: No Assistive Devices: Cane, Denture - Upper, Denture - Lower, Glasses, Walker and Wheelchair Review of Systems All systems reviewed & are unremarkable except as noted in HPI & below Results & Data ([facility]) Vital Signs (Past 12 Hours) Vital Signs Temp Pulse Resp BP Pulse Ox 06/12/20 07:34 36.9 C 69 20 148/69 H 99 Signed By:<Electronically signed by Floyd Rubio MD>06/12/20 0746 Created: 06/12/20 0745 The status of this report is Signed. Draft = Not yet reviewed or approved by Medical Physician. Signed = Reviewed and approved by Medical Physician. Allergies Allergy/AdvReac Type Severity Reaction Status Date / Time No Known Allergies Allergy Unknown Verified 06/29/20 07:46 Home Medications Home Medications Medication Instructions Recorded Confirmed Type aspirin 81 mg tablet,delayed 81 mg PO QAM tab 05/10/18 06/29/20 History release clopidogrel [Plavix] 1 tab PO QAM 11/09/18 06/29/20 History atorvastatin 80 mg tablet 80 mg PO HS #30 tab 10/28/19 06/29/20 Rx metoprolol tartrate 25 mg tablet 12.5 mg PO BID #90 tab 12/31/19 06/29/20 Rx insulin aspart U-100 100 unit/mL 60 units SQ UD ml 04/14/20 06/29/20 History subcutaneous solution insulin syringe-needle U-100 0.5 #10 ea 04/14/20 06/17/20 History mL 30 gauge x 01/24" levothyroxine 150 mcg tablet 150 mcg PO QAM #30 tab 04/23/20 06/29/20 Rx pantoprazole 40 mg tablet,delayed 40 mg PO QAM #30 tab 04/27/20 06/29/20 Rx release cephalexin 500 mg capsule 500 mg PO qid #40 cap 06/15/20 06/29/20 Rx calcitriol [Rocaltrol] 0.25 mcg PO QAM 06/17/20 06/29/20 History Past Med/Surg History Medical History Anemia Aortic stenosis s/p porcine valve 10/29/15 with CABG x 1 CAD (coronary artery disease) s/p CABG x 1 2015. Diabetic autonomic neuropathy associated with type 1 diabetes mellitus Diabetic ulcer of left heel associated with type 1 diabetes mellitus, with fat layer exposed Diabetic ulcer of right heel associated with type 1 diabetes mellitus Dyslipidemia History of kidney stones Hypertension Hypothyroidism Iliac artery stenosis, bilateral PAD (peripheral artery disease) Proliferative diabetic retinopathy associated with type 1 diabetes mellitus PVD (peripheral vascular disease) s/p B/L iliac artery stents 2014, R common/external iliac 2017, R common femoral endarterectomy 11/2018 with bovine patch. 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 History of aortic valve replacement 2015 - LIKELY History of cardiac cath 2014 [place], NO STENTS History of colonoscopy History of coronary artery bypass graft 2016, AORTIC VALVE REPLACEMENT, CABG X1. [facility] History of esophagogastroduodenoscopy (EGD) History of herniorrhaphy UMBILICAL History of open reduction and internal fixation (ORIF) procedure left leg 1970s History of surgery 12/07/18 right common femoral endarterectomy with bovine pericardial angioplasty History of umbilical hernia repair History of vitrectomy LEFT EYE S/P AVR S/P CABG x 1 S/P insertion of iliac artery stent B/L ILIAC STENT PLACEMENT BY DR. RUBIO IN 2014 Status post partial amputation of left foot Family History Brother Family history of diabetes mellitus Sister Family history of diabetes mellitus Mother Family history of diabetes mellitus Grandmother (Maternal) Family history of diabetes mellitus Uncle Family hx of colon cancer Colorectal cancer Father Family history of esophageal cancer Other No family history of adverse response to anesthesia Denies family history of Ovarian cancer Prostate cancer Myocardial infarction Breast cancer Social History Smoking Status: Unknown if ever smoked Tobacco Type: Cigarettes and Smokeless Tobacco (Dip or Chew) Cigarettes Per Day: QUIT 15 YEARS AGO. HX OF 2 PPD "WASTED A LOT"; Smoking End Date: QUIT 15 YEARS AGO; Second Hand Exposure: Yes (family member smoked); Do You Dip or Chew Tobacco: No; Hx Alcohol Use: No Hx Substance Use: No Preferred Language: [place] Islander Communication Ability: Effective Visual Impairment: Limited Hearing Ability: Normal Bisque Brusher Required: No Beliefs That Will Affect Care: None marital status: Current Living Situation: Other Current Living Situation Comment: roomate How many Children do You have: 2 Feels Safe at Home: Yes Safety Concerns: Feels Safe At This Time Childhood Exposure to Second-Hand Smoke: Yes Diet Comment: Carb Counts. (6934-7579, roughly) caffeine: Yes (coffee, rarely ) during the past year weight has: remained stable Dental Care, Regularly: No Physical Activity Frequency: 1-2 Times per Week Seatbelt Use: always Sunscreen Use: No Assistive Devices: Cane, Denture - Upper, Denture - Lower, Glasses, Walker and Wheelchair
--- NOTE | 2020-06-29 09:49 | History & Physical Bridge Note ---
Date of Service June 29, 2020 History & Physical Bridge Note Patient's lesion cannot be treated endovascularly at the arteriogram done previously this month. We therefore recommended a femoral-popliteal bypass of the left lower extremity. He does have a vein in the left leg which may or may not be the saphenous. This will be explored at time of surgery. If the vein is not usable then a prosthetic will be used for a femoral-popliteal bypass graft. I have discussed the risks options and benefits of the procedure with the patient. The patient understands the risks options and benefits and agrees to the procedure. I have examined the patient, reviewed the History & Physical and in the interval since the performance of the History & Physical I have noted the following changes of clinical significance: no changes noted
[2020-06-29] MEDS ORDERED: HEPARIN SOD (PORCINE) 1000 UNIT/ML 10 ML VIAL ONE ×2 (10:52→15:38)
[2020-06-29] MEDS ORDERED: NEOSTIGMINE METHYLSULFATE 5 MG/5 ML SYR ONE ×2 (10:52→15:43)
[2020-06-29] MEDS ORDERED: ONDANSETRON INJ 2 MG/ML 2 ML VIAL ONE (10:52)
[2020-06-29] MEDS ORDERED: SODIUM CHLORIDE 0.9% 250 ML IV PRN (12:05)
[2020-06-29 12:57] LABS: iSTAT Creatinine 0.8 mg/dl (0.6-1.3); iSTAT Hemoglobin 10.5 g/dl (14.0-18.0); iSTAT Ionized Calcium 1.15 mmol/l (1.12-1.32); iSTAT Potassium 3.2 mmol/L (3.3-5.0)
[2020-06-29] MEDS ORDERED: ROCURONIUM BROMIDE 10 MG/ML 5 ML VIAL IV ONE ×3 (13:11)
[2020-06-29] MEDS ORDERED: PROPOFOL IV EMULSION 10 MG/ML 20 ML VIAL IV ONE (13:11)
[2020-06-29] MEDS ORDERED: PHENYLEPHRINE HCL 10 MG/ML VIAL ONE ×2 (13:11→15:45)
[2020-06-29] MEDS ORDERED: PROTAMINE SULFATE 10 MG/ML 5 ML VIAL ONE (15:37)
[2020-06-29] MEDS ORDERED: GLYCOPYRROLATE 0.2 MG/ML VIAL ONE (15:43)
[2020-06-29] MEDS ORDERED: fentaNYL citrate 100 MCG/2 ML VIAL ONE (16:01)
[2020-06-29] MEDS ORDERED: MoRPHine SULFATE 4 MG/ML 1 ML CARP\\VIAL IV PRN (16:05)
[2020-06-29] MEDS ORDERED: INSULIN ASPART PER UNIT SQ SCH (16:15)
--- NOTE | 2020-06-29 16:15 | Post Operative Brief Note ---
Immediate Post Op Note v1 Date of Surgery June 29, 2020 Pre & Post Diagnosis Operation Date: 06/29/20 09:50 Pre-Op Diagnosis: Peripheral Arterial Disease with Osteomyelitis Post-Op Diagnosis: Peripheral Arterial Disease with Osteomyelitis I identified the patient and participated in the time-out.: Yes Procedure Operation Date: 06/29/20 09:50 Actual Procedures p Left Lower Extremity Femoral to posterior tibial artery Insitu composite bypass. Left common femoral endarterectomy with patch. (Right) - Floyd Eason MD Surgeon Floyd Eason MD Nut Process Helper Jacinto,PAC Estimated Blood Loss 1,000 Findings Consistent with Post-Op Diagnosis Drains Rodgers Catheter Anesthesia Type General Complications none Disposition Accompanied Patient To Recovery: No Disposition: Recovery Room
[2020-06-29] MEDS ORDERED: PROMETHAZINE HCL 6.25 MG in SODIUM CHLORIDE 0.9% 50 ML IV STA (16:43)
[2020-06-29 16:54] LABS: iSTAT Creatinine 0.7 mg/dl (0.6-1.3); iSTAT Hemoglobin 10.2 g/dl (14.0-18.0); iSTAT Ionized Calcium 1.13 mmol/l (1.12-1.32); iSTAT Potassium 3.4 mmol/L (3.3-5.0)
[2020-06-29 17:05] LABS: Basophils # (auto) 0.02 K/uL (0-0.2); Basophils % (auto) 0.1 %; Eosinophils # (auto) 0.09 K/uL (0-0.5); Eosinophils % (auto) 0.7 %; Hematocrit (blood only) 32.1 % (42-52); Hemoglobin 10.7 g/dL (14.0-18.0); Immature Granulocytes # (auto) 0.04 K/uL (0.00-0.02); Immature Granulocytes % (auto) 0.3 %; Mean Corpuscular Hemoglobin 28.1 pg (25-34); Mean Corpuscular Volume 84.3 fL (80-100); Mean Platelet Volume 9.5 fL (7.4-10.4); Monocytes # (auto) 1.08 K/uL (0.11-0.59); Monocytes % (auto) 7.9 %; Neutrophils # (auto) 10.92 K/uL (1.4-6.5); Platelet Count 255 K/uL (130-400); RDW Coefficient of Variation 14.1 % (11.5-14.5); Red Blood Count 3.81 M/uL (4.7-6.1); White Blood Count 13.65 K/uL (4.8-10.8)
[2020-06-29 17:08] LABS: Mean Corpuscular Hgb Conc 33.3 g/dL (32-36)
--- NOTE | 2020-06-29 17:08 | Critical Care Consultation ---
Date of Consultation June 29, 2020 Assessment & Plan (1) PVD (peripheral vascular disease): Patient is status post femoral bypass grafting. He is hypotensive currently. He received 3 units of packed RBCs. Defer further management of volume status to vascular surgical team. He may need a low-dose vasopressor such as phenylephrine to help him get over the acute blood loss anemia and vasodilatory shock from analgesics and sedation. He is having some postoperative nausea. Phenergan was ordered by the anesthesiologist. He received Zofran postop as well. Hemoglobin is currently 10.7. I do not think there is any role for further packed RBCs unless there is evidence of further bl eeding. Will defer to vascular team. Patient received perioperative cefazolin. He is currently ordered IV fluids per the vascular surgeon. Continue antiplatelet therapy per vascular surgery. Pain management per vascular surgery. He is an insulin-dependent diabetic and will need intense glucose management during the perioperative. Last A1c was 9.1. Defer management to vascular team. Critical care services are available if needed. ICU will continue to monitor. Thank you. (2) Iliac artery stenosis, bilateral: (3) CAD (coronary artery disease): (4) Diabetic autonomic neuropathy associated with type 1 diabetes mellitus: (5) Hypertension: History of Present Illness Reason for Consultation: ICU monitoring Requesting Physician: Dr. Rubio Attending Physician: Floyd Rubio MD History of Present Illness 65-year-old male with a past medical history of insulin-dependent diabetes mellitus, aortic valve replacement with bioprosthetic valve, hypertensi on, peripheral vascular disease, hyperlipidemia and hypothyroidism presented to the hospital as a planned left lower extremity femoral to posterior tibial artery positive bypass with femoral endarterectomy. History is a bit limited from the patient on today's visit as he is complaining of significant nausea after surgery. His blood pressure is 88/55 at present. He received 3 units of packed RBCs in the OR. He lost approximately 1 L of blood from discussion with the bedside nurses in the PACU recovery area. He reportedly has an echo from 11/13/2019 at [facility] which demonstrated normal LV size and function with an EF of 60 to 65%. Moderate LVH and mild tricuspid regurgitation was seen. He is seen by Dr. Rubio in his clinic for occlusion of the superficial femoral artery in its entirety. He apparently ambulates with a walker at home. He uses a wheelchair outside of his home. He has chronic wounds in his left lower extremities. 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 Per Dr. Rubio's previous notes, the patient has a longstanding vascular history and has undergone multiple attempts of revascularization. Patient apparently has limited surgical options including the surgery that he underwent today. He previously had a wound VAC in place but there was increased tendon exposure and so this was stopped. He is chronically on aspirin and Plavix. He is also on metoprolol 12.5 mg twice daily. The nurse was attempting to use a Doppler on the posterior tibial artery, pedal artery and was unable to hear a pulse. Allergies Allergy/AdvReac Type Severity Reaction Status Date / Time No Known Allergies Allergy Unknown Verified 06/29/20 07:46 Home Medications Home Medications Medication Instructions Recorded Confirmed Type aspirin 81 mg tablet,delayed 81 mg PO QAM tab 05/10/18 06/29/20 History release clopidogrel [Plavix] 1 tab PO QAM 11/09/18 06/29/20 History atorvastatin 80 mg tablet 80 mg PO HS #30 tab 10/28/19 06/29/20 Rx metoprolol tartrate 25 mg tablet 12.5 mg PO BID #90 tab 12/31/19 06/29/20 Rx insulin aspart U-100 100 unit/mL 60 units SQ UD ml 04/14/20 06/29/20 History subcutaneous solution insulin syringe-needle U-100 0.5 #10 ea 04/14/20 06/17/20 History mL 30 gauge x 5/16" levothyroxine 150 mcg tablet 150 mcg PO QAM #30 tab 04/23/20 06/29/20 Rx pantoprazole 40 mg tablet,delayed 40 mg PO QAM #30 tab 04/27/20 06/29/20 Rx release cephalexin 500 mg capsule 500 mg PO qid #40 cap 06/15/20 06/29/20 Rx calcitriol [Rocaltrol] 0.25 mcg PO QAM 06/17/20 06/29/20 History Patient History Medical History Anemia Aortic stenosis s/p porcine valve 10/29/15 with CABG x 1 CAD (coronary artery disease) s/p CABG x 1 2015. Diabetic autonomic neuropathy associated with type 1 diabetes mellitus Diabetic ulcer of left heel associated with type 1 diabetes mellitus, with fat layer exposed Diabetic ulcer of right heel associated with type 1 diabetes mellitus Dyslipidemia History of kidney stones Hypertension Hypothyroidism Iliac artery stenosis, bilateral PAD (peripheral artery disease) Proliferative diabetic retinopathy associated with type 1 diabetes mellitus PVD (peripheral vascular disease) s/p B/L iliac artery stents 2015, R common/external iliac 2017, R common femoral endarterectomy 11/2018 with bovine patch. 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 History of aortic valve replacement 2015 - [place] History of cardiac cath 2014 [place], NO STENTS History of colonoscopy History of coronary artery bypass graft 2016, AORTIC VALVE REPLACEMENT, CABG X1. [facility] History of esophagogastroduodenoscopy (EGD) History of herniorrhaphy UMBILICAL History of open reduction and internal fixation (ORIF) procedure left leg 1970s History of surgery 12/07/18 right common femoral endarterectomy with bovine pericardial angioplasty History of umbilical hernia repair History of vitrectomy LEFT EYE S/P AVR S/P CABG x 1 S/P insertion of iliac artery stent B/L ILIAC STENT PLACEMENT BY DR. RUBIO IN 2014 Status post partial amputation of left foot Family History Brother Family history of diabetes mellitus Sister Family history of diabetes mellitus Mother Family history of diabetes mellitus Grandmother (Maternal) Family history of diabetes mellitus Uncle Family hx of colon cancer Colorectal cancer Father Family history of esophageal cancer Other No family history of adverse response to anesthesia Denies family history of Ovarian cancer Prostate cancer Myocardial infarction Breast cancer Social History Smoking Status: Unknown if ever smoked Tobacco Type: Cigarettes and Smokeless Tobacco (Dip or Chew) Cigarettes Per Day: QUIT 15 YEARS AGO. HX OF 2 PPD "WASTED A LOT"; Smoking End Date: QUIT 15 YEARS AGO; Second Hand Exposure: Yes (family member smoked); Do You Dip or Chew Tobacco: No; Hx Alcohol Use: No Hx Substance Use: No Preferred Language: Lithuanian Communication Ability: Effective Visual Impairment: Limited Hearing Ability: Normal Bale Piler Required: No Beliefs That Will Affect Care: None marital status: Current Living Situation: Other Current Living Situation Comment: roomate How many Children do You have: 2 Feels Safe at Home: Yes Safety Concerns: Feels Safe At This Time Childhood Exposure to Second-Hand Smoke: Yes Diet Comment: Carb Counts. ([id number], roughly) caffeine: Yes (coffee, rarely ) during the past year weight has: remained stable Dental Care, Regularly: No Physical Activity Frequency: 1-2 Times per Week Seatbelt Use: always Sunscreen Use: No Assistive Devices: Cane, Denture - Upper, Denture - Lower, Glasses, Walker and Wheelchair Review of Systems Review of Systems: Unobtainable due to cognitive status Physical Exam Constitutional: Patient is lying supine in the hospital bed. He is currently 88/55 on noninvasive blood pressure monitoring. He is complaining of nausea. He is in mild distress. Oxygen saturations are adequate. Eyes: PERRL, conjunctivae normal, anicteric sclerae ENMT: external ear and nose normal, oropharynx normal Neck: + thick neck Respiratory: normal respiratory effort, lungs clear to auscultation Cardiovascular: Rate/Rhythm: regular rate and regular rhythm Heart Sounds: + murmur Gastrointestinal (Abdomen): normal bowel sounds, soft, nontender, no hepatosplenomegaly Musculoskeletal: Left lower extremity is cold to touch up to the knee. No pulses are palpable in the left lower extremity. Femoral artery bandage is in place along the puncture site and graft site. Skin: no rashes, warm and dry Neurologic: PERRL, EOMI, accommodation nl, no face palsy, no dysarthria Psychiatric: Mood: + anxious mood Thought Process: linear/logical thought process Results & Data Results & Data ([facility]) Vital Signs (Past 12 Hours) Reviewed vital signs, labs and imaging Coding Level of Care Code 91395 Inpt Consult Level 4 Diagnoses PVD (peripheral vascular disease) I73.9 Iliac artery stenosis, bilateral I77.1 CAD (coronary artery disease) I25.10 Diabetic autonomic neuropathy associated with type 1 diabetes mellitus E10.43 Hypertension I10
--- NOTE | 2020-06-29 17:33 | Anesthesiology Progress Note ---
Date of Service June 29, 2020 Anesthesia Post Procedure Vital Signs Vital Signs: Temp Pulse Resp BP Pulse Ox 06/29/20 17:20 78 16 85/35 L 99 06/29/20 17:10 77 15 83/46 L 99 06/29/20 17:00 78 16 88/52 L 100 06/29/20 16:50 85 18 82/47 L 100 06/29/20 16:40 81 19 87/51 L 99 06/29/20 16:33 36.5 C 75 26 H 91/47 L 100 Transfer of Care Handoff Completed per policy Notes Mental Status: alert / awake / arousable and participated in evaluation Patient Amnestic to Procedure: Yes Nausea / Vomiting: adequately controlled Pain: adequately controlled Airway Patency, RR, SpO2: stable & adequate BP & HR: stable & adequate Hydration State: stable & adequate Anesthetic Complications: no major complications apparent
[2020-06-29] MEDS ORDERED: ICU MODERATE HYPERGLYCEMIA PROTOCOL PRN (18:00)
[2020-06-29] MEDS: LACTATED RINGER'S 1,000 ML IV SCH (18:18)
[2020-06-29] MEDS ORDERED: STAT IV Infusion **Titration per Protocol STA (18:20)
[2020-06-29] MEDS ORDERED: INSULIN ASPART 100 UNITS/ML VIAL SC PRN (18:30)
[2020-06-29] MEDS: PHENYLEPHRINE HCL 20 MG in DEXTROSE 5% 500 ML IV SCH (18:39)
[2020-06-29] MEDS: ceFAZolin 2000MG 2,000 MG/15 ML SYR IV SCH (18:39)
[2020-06-29] MEDS: METOPROLOL TARTRATE 25 MG TAB PO SCH (21:19)
[2020-06-29] MEDS: ATORVASTATIN 40 MG TAB PO SCH (21:19)
[2020-06-29] MEDS: NovoLOG INSULIN PUMP SCH (22:37)
[2020-06-30 00:11] LABS: Hematocrit (blood only) 28.8 % (42-52); Hemoglobin 9.4 g/dL (14.0-18.0)
[2020-06-30] MEDS: LACTATED RINGER'S 1,000 ML IV SCH ×2 (03:01→11:14)
[2020-06-30] MEDS: ceFAZolin 2000MG 2,000 MG/15 ML SYR IV SCH (03:02)
[2020-06-30] MEDS: PHENYLEPHRINE HCL 20 MG in DEXTROSE 5% 500 ML IV SCH ×3 (03:36→15:35)
[2020-06-30 04:55] LABS: Basophils # (auto) 0.02 K/uL (0-0.2); Basophils % (auto) 0.1 %; Hematocrit (blood only) 25.5 % (42-52); Hemoglobin 8.6 g/dL (14.0-18.0); Immature Granulocytes # (auto) 0.03 K/uL (0.00-0.02); Immature Granulocytes % (auto) 0.2 %; Lymphocytes # (auto) 1.55 K/uL (1.2-3.4); Lymphocytes % (auto) 10.8 %; Mean Corpuscular Hemoglobin 28.4 pg (25-34); Mean Corpuscular Hgb Conc 33.7 g/dL (32-36); Mean Corpuscular Volume 84.2 fL (80-100); Mean Platelet Volume 9.9 fL (7.4-10.4); Monocytes # (auto) 1.96 K/uL (0.11-0.59); Monocytes % (auto) 13.7 %; Neutrophils # (auto) 10.73 K/uL (1.4-6.5); Neutrophils % (auto) 75.2 %; Platelet Count 249 K/uL (130-400); RDW Coefficient of Variation 14.5 % (11.5-14.5); RDW Standard Deviation 44.9 fL (36.4-46.3); Red Blood Count 3.03 M/uL (4.7-6.1); White Blood Count 14.29 K/uL (4.8-10.8)
[2020-06-30 05:29] LABS: BUN Creatinine Ratio 18.2 (10-20); Calcium 7.3 mg/dl (8.5-10.1); Creatinine Clr Calc Pharmacy 83.5 ml/min; Est GFR (African American) 91.3; Est GFR (Non-African American) 78.8; Magnesium 1.6 mg/dl (1.8-2.4); Phosphorus 3.7 mg/dl (2.5-4.9); Potassium 3.8 mmol/L (3.5-5.1)
[2020-06-30] MEDS: LEVOTHYROXINE SODIUM 150 MCG TABLET PO SCH (06:32)
--- NOTE | 2020-06-30 08:04 | Critical Care Progress Note ---
Date of Service June 30, 2020 Assessment & Plan (1) Iliac artery stenosis, bilateral: Patient is postop day number one of the left lower extremity femoral to posterior tibial artery in situ composite bypass and left common femoral endarterectomy with patch. Patient's leg is warmer today. Hemoglobin is 8.7. He is currently on a low-dose of phenylephrine. Will defer management of blood products and vasopressor support to the vascular surgery team. Glucose is controlled with his insulin pump. Defer management to vascular surgery. We are available if needed. Dual antiplatelet therapy and antihypertensive therapy deferred to vascular surgery. No airway issues currently. Eating breakfast tolerating reasonably well. Possible transfer to the floor later today. ICU will sign off once he is out of the intensive care unit. (2) Diabetic peripheral neuropathy associated with type 1 diabetes mellitus: (3) PVD (peripheral vascular disease): (4) Acute blood loss anemia: Admission and Anticipated Discharge Date Admission Date: June 29, 2020 Subjective Patient had some back pain earlier in the night, but this improved. He denies any pain in his leg. He is eating breakfast. He has very minimal nausea today. Denies any chest pain. Review of Systems Review of Systems: All systems reviewed & are unremarkable except as noted in HPI & below Physical Exam Constitutional: WD/WN, vitals as above Eyes: PERRL, conjunctivae normal, anicteric sclerae ENMT: external ear and nose normal, oropharynx normal Neck: + thick neck Respiratory: normal respiratory effort, lungs clear to auscultation Cardiovascular: Rate/Rhythm: regular rate and regular rhythm Heart Sounds: + murmur Gastrointestinal (Abdomen): normal bowel sounds, soft, nontender, no hepatosplenomegaly Musculoskeletal: no cyanosis or clubbing, extremities motor strength 5/5 Skin: no rashes, warm and dry Neurologic: PERRL, EOMI, accommodation nl, no face palsy, no dysarthria Psychiatric: Mood: + anxious mood Thought Process: linear/logical thought process Results & Data Results & Data ([facility]) Vital Signs (Past 12 Hours) Vital Signs Pulse Resp BP Pulse Ox 06/30/20 07:00 76 9 L 98 06/30/20 06:46 78 11 L 06/30/20 06:44 76 12 135/54 L 95 06/30/20 06:30 78 12 90 06/30/20 06:16 78 15 97 06/30/20 06:14 77 13 127/55 L 93 06/30/20 06:00 79 8 L 88 L 06/30/20 05:46 79 10 L 96 06/30/20 05:44 78 13 127/46 L 97 06/30/20 05:30 79 4 L 89 L 06/30/20 05:16 79 7 L 89 L 06/30/20 05:14 80 14 116/50 L 96 06/30/20 05:00 79 11 L 95 06/30/20 04:46 79 15 94 06/30/20 04:44 80 12 115/54 L 95 06/30/20 04:30 81 26 H 98 06/30/20 04:16 79 17 98 06/30/20 04:14 80 14 122/54 L 95 06/30/20 04:00 80 13 92 06/30/20 03:44 81 6 L 139/57 L 80 L 06/30/20 03:14 79 13 110/50 L 95 06/30/20 03:00 82 14 96 06/30/20 02:44 82 13 119/57 L 98 06/30/20 02:14 82 16 131/56 L 97 06/30/20 02:00 83 14 97 06/30/20 01:44 82 16 133/56 L 96 06/30/20 01:32 81 16 112/56 L 97 06/30/20 01:00 81 16 98 06/30/20 00:45 81 13 123/43 L 98 06/30/20 00:14 80 1 L 82/33 L 99 06/30/20 00:00 80 97 06/29/20 23:44 82 15 125/65 99 06/29/20 23:14 82 18 125/54 L 100 06/29/20 23:00 83 16 100 06/29/20 22:14 81 13 121/54 L 98 06/29/20 22:00 80 13 100 06/29/20 21:44 79 16 111/55 L 100 06/29/20 21:30 80 15 98 06/29/20 21:14 75 17 126/60 98 06/29/20 21:00 74 10 L 100 06/29/20 20:00 153 H 16 100 Reviewed vital signs, labs and imaging Coding Level of Care Code [facility] Diagnoses Iliac artery stenosis, bilateral I77.1 Diabetic peripheral neuropathy associated with type 1 diabetes mellitus E10.42 PVD (peripheral vascular disease) I73.9 Acute blood loss anemia D62
--- NOTE | 2020-06-30 08:51 | Surgery Progress Note ---
Date of Service June 30, 2020 Assessment & Plan (1) Acute blood loss anemia: With significant blood loss from venous bleeding during the surgery. Patient was transfused for the blood loss. (2) S/P femoropopliteal bypass surgery: This patient is day 1 postop from a femoral to posterior tibial bypass. He is doing well. He has excellent Doppler signal heard in the left foot. Once he is weaned off the goyo we will send him to the floor for recovery. Admission and Anticipated Discharge Date Admission Date: June 29, 2020 Subjective This patient has no complaints today. He claims his left leg feels good. He has no complaints of foot pain. Physical Exam Constitutional: He was slightly hypotensive during the night requiring Goyo- Synephrine drip. He is almost weaned off the drip at this time. He is awake alert oriented x3. His dressing are dry and clean. He is got a good posterior tibial Doppler pulse of the left foot. Results & Data ([facility]) Vital Signs (Past 12 Hours) Vital Signs Pulse Resp BP Pulse Ox 06/30/20 07:00 76 9 L 98 06/30/20 06:46 78 11 L 06/30/20 06:44 76 12 135/54 L 95 06/30/20 06:30 78 12 90 06/30/20 06:16 78 15 97 06/30/20 06:14 77 13 127/55 L 93 06/30/20 06:00 79 8 L 88 L 06/30/20 05:46 79 10 L 96 06/30/20 05:44 78 13 127/46 L 97 06/30/20 05:30 79 4 L 89 L 06/30/20 05:16 79 7 L 89 L 06/30/20 05:14 80 14 116/50 L 96 06/30/20 05:00 79 11 L 95 06/30/20 04:46 79 15 94 06/30/20 04:44 80 12 115/54 L 95 06/30/20 04:30 81 26 H 98 06/30/20 04:16 79 17 98 06/30/20 04:14 80 14 122/54 L 95 06/30/20 04:00 80 13 92 06/30/20 03:44 81 6 L 139/57 L 80 L 06/30/20 03:14 79 13 110/50 L 95 06/30/20 03:00 82 14 96 06/30/20 02:44 82 13 119/57 L 98 06/30/20 02:14 82 16 131/56 L 97 06/30/20 02:00 83 14 97 06/30/20 01:44 82 16 133/56 L 96 06/30/20 01:32 81 16 112/56 L 97 06/30/20 01:00 81 16 98 06/30/20 00:45 81 13 123/43 L 98 06/30/20 00:14 80 1 L 82/33 L 99 06/30/20 00:00 80 97 06/29/20 23:44 82 15 125/65 99 06/29/20 23:14 82 18 125/54 L 100 06/29/20 23:00 83 16 100 06/29/20 22:14 81 13 121/54 L 98 06/29/20 22:00 80 13 100 06/29/20 21:44 79 16 111/55 L 100 06/29/20 21:30 80 15 98 06/29/20 21:14 75 17 126/60 98 06/29/20 21:00 74 10 L 100
[2020-06-30] MEDS: CLOPIDOGREL BISULFATE 75 MG TAB PO SCH (09:20)
[2020-06-30] MEDS: CALCITRIOL 0.25 MCG CAPSULE PO SCH (09:20)
[2020-06-30] MEDS: ASPIRIN 81 MG ECTAB PO SCH (09:20)
[2020-06-30] MEDS: PANTOprazole 40 MG TAB PO SCH (09:21)
[2020-06-30] MEDS: NovoLOG INSULIN PUMP SCH ×4 (09:25→21:28)
[2020-06-30] MEDS ORDERED: POTASSIUM CHLORIDE 20 MEQ TABCR PO ONE (10:45)
[2020-06-30] MEDS: METOPROLOL TARTRATE 25 MG TAB PO SCH ×2 (11:17→19:39)
[2020-06-30] MEDS: MAGNESIUM SULFATE / D5W 1 GM/100 ML BAG IV SCH ×3 (11:20→15:34)
[2020-06-30] MEDS ORDERED: SODIUM CHLORIDE 0.9% 250 ML IV PRN (12:07)
--- NOTE | 2020-06-30 12:44 | Anesthesiology Progress Note ---
Date of Service June 30, 2020 Anesthesia Post Procedure Vital Signs Vital Signs: Temp Pulse Pulse Resp BP BP Pulse Ox 06/30/20 12:30 86 16 96 06/30/20 12:27 37.2 C 87 17 112/39 L 97 06/30/20 12:16 86 18 97 06/30/20 12:15 88 19 92/39 L 99 06/30/20 11:46 90 20 98 06/30/20 11:44 91 H 17 88/62 L 98 06/30/20 11:30 82 17 97 06/30/20 11:16 81 14 87 L 06/30/20 11:14 82 15 96/38 L 99 06/30/20 10:44 85 16 103/47 L 100 06/30/20 10:14 81 15 99/41 L 97 06/30/20 09:45 86 20 104/41 L 100 06/30/20 09:14 82 12 101/43 L 95 06/30/20 08:44 90 17 127/43 L 99 06/30/20 08:35 80 14 93/44 L 100 06/30/20 08:14 80 11 L 51/23 L 06/30/20 07:45 88 17 96/54 L 97 06/30/20 07:14 78 19 115/49 L 06/30/20 07:00 76 9 L 98 06/30/20 06:46 78 11 L 06/30/20 06:44 76 12 135/54 L 95 06/30/20 06:30 78 12 90 06/30/20 06:16 78 15 97 06/30/20 06:14 77 13 127/55 L 93 06/30/20 06:00 79 8 L 88 L 06/30/20 05:46 79 10 L 96 06/30/20 05:44 78 13 127/46 L 97 06/30/20 05:30 79 4 L 89 L 06/30/20 05:16 79 7 L 89 L 06/30/20 05:14 80 14 116/50 L 96 06/30/20 05:00 79 11 L 95 06/30/20 04:46 79 15 94 06/30/20 04:44 80 12 115/54 L 95 06/30/20 04:30 81 26 H 98 06/30/20 04:16 79 17 98 06/30/20 04:14 80 14 122/54 L 95 06/30/20 04:00 80 13 92 06/30/20 03:44 81 6 L 139/57 L 80 L 06/30/20 03:14 79 13 110/50 L 95 06/30/20 03:00 82 14 96 06/30/20 02:44 82 13 119/57 L 98 06/30/20 02:14 82 16 131/56 L 97 06/30/20 02:00 83 14 97 06/30/20 01:44 82 16 133/56 L 96 06/30/20 01:32 81 16 112/56 L 97 06/30/20 01:00 81 16 98 06/30/20 00:45 81 13 123/43 L 98 06/30/20 00:14 80 1 L 82/33 L 99 06/30/20 00:00 80 97 06/29/20 23:44 82 15 125/65 99 06/29/20 23:14 82 18 125/54 L 100 06/29/20 23:00 83 16 100 06/29/20 22:14 81 13 121/54 L 98 06/29/20 22:00 80 13 100 06/29/20 21:44 79 16 111/55 L 100 06/29/20 21:30 80 15 98 06/29/20 21:14 75 17 126/60 98 06/29/20 21:00 74 10 L 100 06/29/20 20:00 153 H 16 100 06/29/20 19:56 77 14 121/60 100 06/29/20 19:45 78 22 80/38 L 100 06/29/20 19:34 74 14 156/130 H 100 06/29/20 19:24 74 8 L 145/61 H 100 06/29/20 19:14 72 13 133/51 L 100 06/29/20 19:04 74 8 L 101/42 L 100 06/29/20 19:00 73 22 100 06/29/20 18:23 71 21 81/35 L 100 06/29/20 18:13 71 16 81/40 L 100 06/29/20 18:10 73 14 64/45 L 100 06/29/20 18:00 75 16 84/38 L 100 06/29/20 17:50 87 15 84/39 L 99 06/29/20 17:40 74 16 82/38 L 99 06/29/20 17:30 36.1 C L 76 15 83/45 L 98 06/29/20 17:20 78 16 85/35 L 99 06/29/20 17:10 77 15 83/46 L 99 06/29/20 17:00 78 16 88/52 L 100 06/29/20 16:50 85 18 82/47 L 100 06/29/20 16:40 81 19 87/51 L 99 06/29/20 16:33 36.5 C 75 26 H 91/47 L 100 Notes Mental Status: alert / awake / arousable and participated in evaluation Nausea / Vomiting: adequately controlled Pain: adequately controlled Airway Patency, RR, SpO2: stable & adequate BP & HR: stable & adequate Hydration State: stable & adequate Anesthetic Complications: no major complications apparent and Pt Satisfied with anesthetic care
[2020-06-30 18:52] LABS: Hematocrit (blood only) 26.5 % (42-52); Hemoglobin 8.8 g/dL (14.0-18.0)
[2020-06-30 20:28] LABS: Creatine Kinase MB 5.6 ng/ml (0.5-3.6); Troponin I 0.022 ng/ml (0-0.045)
[2020-06-30] MEDS: ATORVASTATIN 40 MG TAB PO SCH (21:28)
[2020-07-01 04:45] LABS: Basophils # (auto) 0.02 K/uL (0-0.2); Basophils % (auto) 0.2 %; Eosinophils # (auto) 0.14 K/uL (0-0.5); Eosinophils % (auto) 1.6 %; Hematocrit (blood only) 24.7 % (42-52); Hemoglobin 8.2 g/dL (14.0-18.0); Immature Granulocytes # (auto) 0.02 K/uL (0.00-0.02); Immature Granulocytes % (auto) 0.2 %; Lymphocytes # (auto) 1.13 K/uL (1.2-3.4); Lymphocytes % (auto) 12.6 %; Mean Corpuscular Hemoglobin 28.5 pg (25-34); Mean Corpuscular Hgb Conc 33.2 g/dL (32-36); Mean Corpuscular Volume 85.8 fL (80-100); Mean Platelet Volume 9.9 fL (7.4-10.4); Monocytes # (auto) 1.28 K/uL (0.11-0.59); Monocytes % (auto) 14.3 %; Neutrophils # (auto) 6.38 K/uL (1.4-6.5); Neutrophils % (auto) 71.1 %; Platelet Count 182 K/uL (130-400); RDW Coefficient of Variation 14.3 % (11.5-14.5); Red Blood Count 2.88 M/uL (4.7-6.1); White Blood Count 8.97 K/uL (4.8-10.8)
[2020-07-01 05:23] LABS: BUN Creatinine Ratio 15.5 (10-20); Calcium 7.3 mg/dl (8.5-10.1); Creatinine Clr Calc Pharmacy 107.3 ml/min; Est GFR (African American) 111.3; Est GFR (Non-African American) 96.1; Magnesium 1.9 mg/dl (1.8-2.4); Potassium 3.6 mmol/L (3.5-5.1)
[2020-07-01 05:33] LABS: Phosphorus 1.5 mg/dl (2.5-4.9)
[2020-07-01] MEDS ORDERED: POTASSIUM PHOS 3 MMOL/1 ML INFUSION IV STA (06:07)
[2020-07-01] MEDS ORDERED: POTASSIUM PHOSPHATE 21 MMOL in SODIUM CHLORIDE 0.9% 500 ML IV ONE (06:30)
[2020-07-01] MEDS: LEVOTHYROXINE SODIUM 150 MCG TABLET PO SCH (06:37)
[2020-07-01] MEDS: NovoLOG INSULIN PUMP SCH ×4 (08:07→21:27)
[2020-07-01] MEDS: PANTOprazole 40 MG TAB PO SCH (08:20)
[2020-07-01] MEDS: CALCITRIOL 0.25 MCG CAPSULE PO SCH (08:20)
[2020-07-01] MEDS: ASPIRIN 81 MG ECTAB PO SCH (08:20)
--- NOTE | 2020-07-01 08:42 | Surgery Progress Note ---
Date of Service July 01, 2020 Assessment & Plan (1) S/P femoropopliteal bypass surgery: doing better today. Off of the fitz drip since last pm. Will transfer to floor. Admission and Anticipated Discharge Date Admission Date: June 29, 2020 Subjective Sleeping peacefully. Physical Exam Constitutional: Dressings are intact. Good post tib doppler on left. Results & Data ([facility]) Vital Signs (Past 12 Hours) Vital Signs Temp Pulse Resp BP Pulse Ox 07/01/20 08:17 37.5 C 07/01/20 05:00 79 20 71 L 07/01/20 04:47 78 15 120/47 L 90 07/01/20 04:00 81 13 105/38 L 89 L 07/01/20 03:47 80 14 117/47 L 96 07/01/20 03:00 80 12 91 07/01/20 02:00 80 15 95 07/01/20 01:47 82 14 130/50 L 93 07/01/20 01:00 82 19 97 07/01/20 00:47 84 14 127/49 L 91 07/01/20 00:00 83 12 107/38 L 84 L 06/30/20 23:47 84 15 119/48 L 92 06/30/20 23:00 85 19 96 06/30/20 22:47 85 18 125/49 L 91 06/30/20 22:00 85 19 94 06/30/20 21:47 90 20 100/53 L 77 L 06/30/20 21:00 84 20 91 06/30/20 20:47 92 H 24 106/52 L 95
[2020-07-01] MEDS: CLOPIDOGREL BISULFATE 75 MG TAB PO SCH (09:20)
[2020-07-01] MEDS: METOPROLOL TARTRATE 25 MG TAB PO SCH ×2 (10:10→21:27)
[2020-07-01] MEDS ORDERED: cephALEXin 500 MG CAP PO ONE (10:45)
[2020-07-01] MEDS: oxyCODONE/ACETAMINOPHEN 5mg/325mg TAB PO PRN (13:44)
[2020-07-01] MEDS: cephALEXin 500 MG CAP PO SCH ×2 (16:20→19:56)
[2020-07-01] MEDS ORDERED: Nursing to Pharmacy Communication SCH (18:30)
[2020-07-01] MEDS: ATORVASTATIN 40 MG TAB PO SCH (21:26)
[2020-07-02] MEDS: cephALEXin 500 MG CAP PO SCH ×5 (00:01→21:58)
[2020-07-02] MEDS: LEVOTHYROXINE SODIUM 150 MCG TABLET PO SCH (05:30)
[2020-07-02] MEDS: METOPROLOL TARTRATE 25 MG TAB PO SCH ×2 (08:55→21:58)
[2020-07-02] MEDS: NovoLOG INSULIN PUMP SCH ×4 (08:55→22:00)
[2020-07-02] MEDS: CALCITRIOL 0.25 MCG CAPSULE PO SCH (08:59)
--- NOTE | 2020-07-02 10:04 | Surgery Progress Note ---
Date of Service July 02, 2020 Assessment & Plan (1) S/P femoropopliteal bypass surgery: Doing well. Will need to increase ambulation. May be ready for d/c soon. Admission and Anticipated Discharge Date Admission Date: June 29, 2020 Subjective Patient awake and alert. No complaints. Claims to have no pain in his surgical leg. Physical Exam Constitutional: WD/WN, vitals as above Cardiovascular: Posterior tibial doppler of the left lower extremity heard. Skin: + incision (dry and clean) Results & Data ([facility]) Vital Signs (Past 12 Hours) Vital Signs Temp Pulse Pulse Resp BP Pulse Ox 07/02/20 07:15 37.2 C 78 18 96 07/01/20 23:49 37.6 C H 77 16 116/70 93
[2020-07-02] MEDS: PANTOprazole 40 MG TAB PO SCH (10:05)
[2020-07-02] MEDS: ASPIRIN 81 MG ECTAB PO SCH (10:05)
[2020-07-02] MEDS: CLOPIDOGREL BISULFATE 75 MG TAB PO SCH (10:05)
[2020-07-02] MEDS ORDERED: INFLUENZA VIRUS QUAD VACCINE 0.5 ML SYR IM ONE (11:37)
[2020-07-02] MEDS ORDERED: INFLUENZA ADMINISTRATION CHARGE ONE (11:37)
[2020-07-02] MEDS: oxyCODONE/ACETAMINOPHEN 5mg/325mg TAB PO PRN (19:12)
[2020-07-02] MEDS: ATORVASTATIN 40 MG TAB PO SCH (21:58)
[2020-07-03] MEDS: LEVOTHYROXINE SODIUM 150 MCG TABLET PO SCH (05:18)
[2020-07-03] MEDS: NovoLOG INSULIN PUMP SCH ×2 (08:40→13:53)
[2020-07-03] MEDS: METOPROLOL TARTRATE 25 MG TAB PO SCH (08:42)
[2020-07-03] MEDS: cephALEXin 500 MG CAP PO SCH ×2 (08:43→13:36)
[2020-07-03] MEDS: CLOPIDOGREL BISULFATE 75 MG TAB PO SCH (08:44)
[2020-07-03] MEDS: ASPIRIN 81 MG ECTAB PO SCH (08:44)
[2020-07-03] MEDS: CALCITRIOL 0.25 MCG CAPSULE PO SCH (08:45)
[2020-07-03] MEDS: PANTOprazole 40 MG TAB PO SCH (08:45)
--- NOTE | 2020-07-03 11:52 | Surgery Progress Note ---
Date of Service July 03, 2020 Assessment & Plan (1) S/P femoropopliteal bypass surgery: Doing well post op day #4. Discussed with Dr Eason, recommends d/c home today. Will see in office in 2 weeks for reeval and staple removal. Admission and Anticipated Discharge Date Admission Date: June 29, 2020 Subjective 65 yo m with multiple medical problems, POD #4 after LLE fem-post tib insitu/composite BPG, seen in f/ut [place]. Pt admits mild discomfort in LLE incisions. Denies any new complaints at this time. Review of Systems Review of Systems: All systems reviewed & are unremarkable except as noted in HPI & below Physical Exam Constitutional: WD/WN, vitals as above Cardiovascular: Rate/Rhythm: regular rate and regular rhythm Vessels: posterior tibial pulses present (BLE with doppler) and dorsalis pedis pulses present (RLE with dopppler, no signal LLE) Extremities: normal capillary refill Skin: + incision (dry and clean) Results & Data ([facility]) Vital Signs (Past 12 Hours) Vital Signs Temp Pulse Resp BP Pulse Ox 07/03/20 07:01 37.3 C 66 16 108/64 97
--- NOTE | 2020-07-03 12:13 | Discharge Summary ---
Date of Service July 03, 2020 Admission HPI Per Admitting Provider [place] [address] History & Physical Report Signed Patient: BRANDON CHOWDHURY JrAdmit Date: 06/12/20 MR#: [id number] Phy: Floyd Eason M.D. Acct ID:[id number] Phy: Enio Richards III, MD Date: 1955Fam Phy: Age: 65Location: [facility] Sex: M Room/Bed: cc: ~ *NOTICE TO RECEIVING CONSTITUTION PARTY/AGENCY This information is strictly Confidential and protected under [place] law. [place] law prohibits you from making any further disclosure of this information unless further disclosure is expressly permitted by the written consent of the person to whom it pertains or is authorized by law. A general authorization for the release of medical or other information is not sufficient for this purpose. Hospital accepts no responsibility if the information is made available to any other person, INCLUDING THE PATIENT. Date of Service June 12, 2020 History of Present Illness Primary Care Provider: Enio Richards MD Name: BRANDON CHOWDHURY JR Patient Number: [id number] : 1955 Date of Service: 05/28/2020 Chief Complaint: _Patient requested appointment for reevaluation of PAD due to worsening of left leg wound HPI: _Mr. Chowdhury is a longstanding vascular patient of Dr. Eason'elba who was seen today at his request after he was informed that the left lateral leg wound has worsened. Patient has previously undergone multiple attempts at revascularization most recently with angiography without intervention. Patient has noted SFA occlusions and discussions have been had with the patient in the past regarding limited surgical options including femoral to distal artery bypass. During previous visits here as recently as a few weeks ago, patient indicated that his wounds were improving. He states that since that time he has had significant worsening in the wound to the lateral side of his left leg and now has exposed tendon. He states that the wound clinic was using a wound VAC to the area, however, they have stopped using it due to the increased tendon exposure. Patient denies any new complaints of pain. He denies any other new complaints as well. He did not have imaging prior to today's visit. Current Home Meds: (Last Updated 05/28 09:07) aspirin 81 mg PO Daily atorvastatin (atorvastatin 80 mg oral tablet) 80 mg PO Daily calcitriol (Rocaltrol 0.25 mcg oral capsule) 0.25 mcg PO Daily clopidogrel (clopidogrel 75 mg oral tablet) take 1 tablet by mouth once daily insulin aspart (NovoLOG) sliding scale sub q injections, basal and bolus levothyroxine (levothyroxine 150 mcg (0.15 mg) oral tablet) 150 mcg PO Daily meclizine (meclizine 25 mg oral tablet) 25 mg PO tid PRN: as needed for dizziness metoprolol (metoprolol tartrate 25 mg oral tablet) 12.5 mg PO bid pantoprazole (pantoprazole 40 mg oral delayed release tablet) 40 mg PO Daily Allergies and Sensitivities: NKA Past Medical History: Problems: Right ankle pain S/P orthopedic surgery, follow-up exam Pre-op exam Diabetic foot ulcer (atherosclerosis) Tobacco user Aortoiliac stenosis Leg ulcer Peripheral arterial disease Diabetes mellitus Gastric reflux DIARRHEA Arthritis Heart murmur Weight disorder Thyroid disease Physical Exam _ Constitutional: In general patient is healthy-appearing well-nourished well- developed middle-aged male no distress. He is alert and oriented. He has no focal neurological deficits. His heart is regular with murmur. Lungs are decreased slightly but clear. Abdomen is soft and nontender. Lower extremity distal pulses are nonpalpable. He has brisk capillary refill to the toes. Images of the patient's left lateral leg wound were reviewed at length today. ASSESSMENT: _ PLAN: _ 1 ) _peripheral arterial disease with worsening left lower leg wounds. Patient was also seen by Dr. Eason today who recommends that patient undergo left leg angiography for surgical planning. He will also have a new vein mapping performed to reevaluate his saphenous vein for bypass conduit. We will then discuss what surgical options are available with the patient. According to images, wound bed itself appears essentially healthy with some pink granulation, however, there is a considerable amount of tendon visible. We will keep you informed as to the outcome of surgical decision making. Patient is agreeable to this plan. Thank you for letting us participate in the care of this patient. Admission Exam Per Admitting Provider Physical Exam _ Constitutional: In general patient is healthy-appearing well-nourished well- developed middle-aged male no distress. He is alert and oriented. He has no focal neurological deficits. His heart is regular with murmur. Lungs are decreased slightly but clear. Abdomen is soft and nontender. Lower extremity distal pulses are nonpalpable. He has brisk capillary refill to the toes. Principal Diagnosis 1. s/p LLE femoral to post tib in situ/PTFE composite bypass and L common femoral endarterectomy 2. Severe PAD with nonhealing wound Discharge Exam Constitutional WD/WN, vitals as above Cardiovascular Rate/Rhythm: regular rate and regular rhythm Vessels: posterior tibial pulses present (BLE with doppler) and dorsalis pedis pulses present (RLE with dopppler, no signal LLE) Extremities: normal capillary refill Skin + incision (dry and clean) Discharge Data Allergies Allergy/AdvReac Type Severity Reaction Status Date / Time No Known Allergies Allergy Unknown Verified 06/29/20 07:46 Consultations 06/29/20 16:11 Consult Hosiery Mater Routine 06/30/20 08:00 Consult Case Management - Discharge Planning Routine Procedures Performed Operation Date: 06/29/20 09:50 Actual Procedures p Left Lower Extremity Femoral to posterior tibial artery Insitu composite bypass. Left common femoral endarterectomy with patch. (Right) - Floyd Eason MD Hospital Course (1) S/P femoropopliteal bypass surgery: Pt did require 4 U PRBC post operatively d/t significant operative blood loss, but has been stable since transfusion. Doing well post op day #4. Discussed with Dr Eason, recommends d/c home today. Will see in office in 2 weeks for reeval and staple removal. Total Time Total Time Spent Total Time Spent (In Minutes): 0 Discharge Plan Discharge Items Patient Disposition: Home - Home Health Services Reason For Visit: Peripheral Arterial Disease with Osteomyelitis Discharge Diagnosis: 1. s/p LLE femoral to post tib in situ/composite BPG 2. Severe PAD with nonhealing ulcer of L ankle Activity: Per Instructions section Non-emergency contact: Primary Care Provider and Surgeon Call non-emergency contact if: you have any medication questions, your pain is not controlled, your pain is concerning for you, you have a fever, your wound has increased redness, your wound has increased drainage and your wound pain has increased Follow-up/Referrals: Enio Richards III, MD [Primary Care Provider] - 07/10/20 2:00 pm (follow up appointment scheduled with Dr. Richards July 10, 2020 at 2:00 pm) Bekah Rodriges PA-C [Physician Expediter Clerk] - ([facility] up [facility] ) Diet: Carb Count or DM1 and Heart Healthy Addtl Attending Provider Instructions: 1. Pt may shower, no bathing. Dry wounds gently after bathing. 2. Keep surgical wounds clean and dry otherwise. 3. May place light dry dressing to wounds if drainage occurs, otherwise leave open to air. ACTIVITY RECOMMENDATIONS: See Above SPECIAL CARE INSTRUCTIONS: Call your doctor if: * Temperature above 101 degrees * Pain not relieved by pain medicine ordered * There is increased drainage or redness from any incision * You have any unanswered questions or concerns. Pending Studies at Discharge: No Stand-Alone Forms: My [facility] [employer], Smoking Cessation Medications and DC Order Prescriptions: New oxycodone-acetaminophen [Percocet] 5-325 mg Tablet 1 - 2 tab PO Q4H PRN (Reason: Pain) Qty: 20 RF: 0 ferrous sulfate 325 mg (65 mg iron) tablet 325 mg PO TID Qty: 90 RF: 2 Continued aspirin 81 mg tablet,delayed release (DR/EC) 81 mg PO QAM RF: 0 atorvastatin [Lipitor] 80 mg tablet 80 mg PO HS Qty: 30 RF: 11 metoprolol tartrate 25 mg tablet 12.5 mg PO BID Qty: 90 RF: 3 levothyroxine 150 mcg tablet 150 mcg PO QAM Qty: 30 RF: 5 pantoprazole [Protonix] 40 mg tablet,delayed release (DR/EC) 40 mg PO QAM Qty: 30 RF: 5 cephalexin [Keflex] 500 mg capsule 500 mg PO qid Qty: 40 RF: 1 insulin aspart U-100 [Novolog U-100 Insulin aspart] 100 unit/mL solution 60 units SQ UD RF: 0 (DME) insulin syringe-needle U-100 [BD SafetyGlide Insulin Syringe] 0.5 mL 30 gauge x 5/16" syringe See Dose Instructions .ROUTE .MEDSUPPLY Qty: 10 RF: 0 calcitriol [Rocaltrol] 0.25 mcg capsule 0.25 mcg PO QAM RF: 0 clopidogrel [Plavix] 75 mg Tablet 1 tab PO QAM RF: 0 Discharge Orders: Discharge Order (Routine); Ordered 07/03/20 Ordered By: Bekah oRdriges Admission Data Admit Date/Time: 06/29/20 16:11 Attending Provider: Floyd Eason Admit Provider: Floyd Eason Primary Care Provider: Enio Richards III Other Providers: Tae Gudino ; Chance Noland ; Damián Snell ; Kai Mcmillan ; Albert Edwards ; Rashid Rios ; Que Palomo ; [facility]
--- NOTE | 2020-07-16 15:08 | Operative Report ---
Post Operative Report Pre & Post Diagnosis Operation Date: 06/29/20 09:50 Pre-Op Diagnosis: Peripheral Arterial Disease with Osteomyelitis Post-Op Diagnosis: Peripheral Arterial Disease with Osteomyelitis I identified the patient and participated in the time-out.: Yes Procedure Operation Date: 06/29/20 09:50 Actual Procedures p Left Lower Extremity Femoral to posterior tibial artery Insitu composite bypass. Left common femoral endarterectomy with patch. (Right) - Floyd Eason MD Surgeon Floyd Eason MD Senior Software Development Engineer JIM Casey Estimated Blood Loss 1,000 Findings Consistent with Post-Op Diagnosis Specimens None Anesthesia Type General Complications none Disposition Accompanied Patient To Recovery: No Disposition: Recovery Room Indications Is a 65-year-old gentleman with nonhealing ulcers of the left lower extremity. He was found to have a superficial femoral artery occlusion and common femoral artery stenoses. Surgical intervention was recommended. I have discussed the risks options and benefits of the procedure with the patient. The patient understands the risks options and benefits and agrees to the procedure. Description of Procedure The patient was taken to the operating placed in the supine position. After general anesthesia was accomplished the left leg was prepped and draped in a sterile manner. The patient was identified and timeout was performed. Longitudinal incision was made in the left groin. This occurred on the right common femoral artery was identified. It was heavily calcified. It did have good pulse present. Next the saphenous vein was identified in the groin. Saphenofemoral junction was lower than the common femoral artery. It was thought that we need to do a interposition graft of the prosthetic to lengthen the bypass. We then made a longitudinal incision in the calf. This is carried out for the posterior tibial arteries identified in the upper third of the calf. The saphenous vein appeared usable at that level. Patient was heparinized. After adequate position was accomplished the common femoral superficial femoral profundofemoral arteries were clamped. Longitudinal arteriotomy was made in the common femoral artery. Indeed he did have a large amount of plaque present. This was endarterectomized. Once the plaque was completely removed and the origin of the profunda was endarterectomized open the endarterectomy site was closed with a bovine patch sewn in with a 5-0 Prolene suture. We then used a 6 mm [place]-Aftab graft. This was sewn in an end-to-end fashion to the vein. This was done after this abdomen was transected. The [place]-A[place]ab graft was then pulled the appropriate length. It was beveled in the usual fashion and sewn to the arteriotomy in the bovine patch again using 5-0 Prolene suture. Once this was completed the clamps were removed. Good flow was seen down to the first valve of the bypass. There was good flow in the profunda femoral artery. We then transected the saphenous vein at the calf level. The LeMaitre valve cutter was passed up approximately 10 cm which point the vein was totally occluded for short 3 cm segment. We then transected the vein above the occlusion. LeMaitre valve cutter was passed up to the groin and the valves of the saphenous vein cut. Good flow was seen through the saphenous vein. This also was too short to reach deep patent posterior tibial. We then clamped the posterior tibial artery proximally distally. Longitudinal arteriotomy was then made. #3 Zachery catheter was passed all the way down through the foot to here showing the artery to be patent to the foot. That point we brought the other piece of 6 mm [place]- Aftab graft and beveled it. It was then sewn to the posterior tibial artery in the usual vascular fashion using 6-0 Prolene suture. We then transected at the appropriate length and an end-to-end anastomosis was accomplished in the distal saphenous vein and the [place]-A[place]ab graft again with a 6-0 Prolene suture. Once this was done clamps were removed. Excellent flow seen through the posterior tibial artery. Good Doppler signals were heard on the foot the foot was pink in color. Is in the Doppler side branches were identified. There is one side branch auscultated in the midportion of the thigh. Small incision was made over this branch it was ligated in situ. Doppler could not continuous pickling line pickler any other side branches through the thigh. At that point adequate hemostasis obtained. Once adequate hemostasis was noted the wounds were closed in usual fashion using running 2-0 Vicryl suture for the femoral sheath 3-0 Vicryl for subcutaneous layer both incisions and sharri for the skin. Sterile dressings were applied to the wounds.The patient left the operation room in satisfactory condition and tolerated the procedure well. All needle and sponge counts were correct at the end of the procedure. Bekah Rodriges Pac assisted due to lack of resident availability and was necessary for positioning, draping, retraction, wound closure deep layers, subcutaneous tissue, and skin closure and was necessary for assisting with the case. I attest to the content of the Intraoperative Record and any orders documented therein. Any exceptions are noted below.
== END 2020-07-03 15:10 | disposition home health service (06) | DRG 253 ==
LOC: ASU 07:04 → 1E 16:11 → 3N 07-01 13:55

== ENCOUNTER 2021-01-13 15:51 | Inpatient (IN) ==
--- NOTE | 2021-01-13 16:45 | Emergency Department Note ---
Impression & Plan Osteomyelitis, Diabetic foot ulcer ED Provider Note NAME: BRANDON MOE Jr AGE: 65 SEX: M : 1955 ARRIVES VIA: Walk-In INFORMANT: Patient, ED PROVIDER(S): Balwinder Escamilla MD Chief Complaint: Foot ulcer HPI: Patient does present with concern for right foot ulcer. The patient has had this for approximately a year but states he has noticed that the eschar is been growing with associated drainage from the posterior aspect of the right foot. Patient denies any fevers or chills. He has had occasional nausea but no vomiting. The patient does have a history of type 1 diabetes. Patient did have procedures completed on his left foot by Dr. Eason in the past. The patient states that he was post to have additional debridements and possible surgeries of the right foot but have been pushed back due to concerns for Covid. Patient is vaccinated for Covid. Patient has been taking doxycycline by mouth and applying gentamicin ointment to the wounds. The patient does also have a small wound on his right first toe and fifth toe. Patient denies any recent trauma to the area. The patient states that he has been seeing wound care weekly. Patient states that this got progressively worse and is not improving even with outpatient management ROS: See HPI for pertinent positives and negatives. A total of 10 systems were reviewed and otherwise negative. Past medical history: See below Surgical history: See below Social history: See below Physical Exam: GENERAL: Wearing a mask. NAD, non-toxic. EYE EXAM: Normal conjunctiva. PERRL, no anisocoria and EOM's grossly intact w/o pain. NECK: Supple, no nuchal rigidity, no adenopathy, non-tender. No signs of meningismus. LUNGS: Clear to auscultation. Normal chest wall mechanics. HEART: NSR, no MRG. ABDOMEN: Abdomen soft, non-tender, normo-active bowel sounds, no masses, no rebound or guarding. BACK: No CVA TTP. SKIN: No rashes and no bruising. UPPER EXTREMITIES: Upper extremities are grossly normal. LOWER EXTREMITIES: Left lower extremity in boot, right lower extremity with wraps around first and fifth toes, significant 8 x 6 cm eschar over the plantar aspect of the right foot beginning at the heel with exposed 4 x 2 cm area with scant drainage. No crepitus noted. Sensation intact. NEURO EXAM: A&O x3, cranial nerves II-XII grossly intact, normal speech, moves all 4 extremities on command w/o issue. Differential diagnoses: Cellulitis, abscess, MRSA infection, DVT, necrotizing fasciitis, dermatitis, drug eruption, allergic reaction, as well as other pathologies. Course: Patient was seen and evaluated the bedside. Full history physical exam was performed. EKG interpreted by me Sinus rhythm, rate of 77, wide QRS, normal axis, right bundle branch block pattern, T WI anteriorly. No significant change from comparison EKG July 31, 2020. Imaging Studies: See below Cardiac monitoring: An order was placed for continuous cardiac monitoring. The monitor shows a rate of 76 with sinus rhythm. MDM: Patient was seen due to concern for right foot wound. Culture was obtained. I did speak with the ED pharmacist in order to place the patient on appropriate antibiotics given his prolonged wound course. Additional blood work was obtained along with IV fluids and blood cultures. The patient's white count is 11 with a hemoglobin of 12. Platelet count mildly elevated 427. Kidney function unremarkable. Very mild hyponatremia at 133. Blood glucose is normal with normal bicarb and anion gap. Pro-Lionel is not elevated. Covid flu RSV negative. X-ray of the right foot does show concern for osteomyelitis. I did speak the on-call hospitalist Dr. Camejo and the patient was admitted to the medicine service. Past Med/Surg History Medical History Aortic stenosis s/p porcine valve replacement (2015) with CABG x 1 CAD (coronary artery disease) s/p CABG x 1 (2015) Chronic renal disease, stage 3, moderately decreased glomerular filtration rate (GFR) between 30-59 mL/min/1.[address] Lerner Diabetes mellitus type 1 Diabetic autonomic neuropathy associated with type 1 diabetes mellitus Diabetic nephropathy associated with type 1 diabetes mellitus Dyslipidemia GERD (gastroesophageal reflux disease) Hypertension Hypothyroidism Insulin pump in place Nephrolithiasis Osteoarthritis Osteoporosis PAD (peripheral artery disease) Proliferative diabetic retinopathy associated with type 1 diabetes mellitus PVD (peripheral vascular disease) s/p B/L iliac artery stents (2014), R common/external iliac (2017), R common femoral endarterectomy (11/2018) with bovine patch. Left femoral to PT composite bypass graft (06/2020) Surgical History H/O cataract extraction R/L H/O endarterectomy R common femoral (11/2018) History of ankle surgery Left ankle (hardware since removed) History of aortic valve replacement 2015 ([facility] [place]) History of arterial bypass of lower extremity Left femoral to PT composite bypass graft (06/2020) History of cardiac cath 2016 > no stents (subsequent CABG with AVR in 2015) History of carpal tunnel release R/L History of colonoscopy History of coronary artery bypass graft CABG x1 + AVR (2015) History of esophagogastroduodenoscopy (EGD) History of myringotomy History of open reduction and internal fixation (ORIF) procedure LLE () History of skin graft Split Thickness Skin Graft of Left Lateral Ankle (11/18/20): LMA#5, atraumatic x1 at [facility] History of tonsillectomy History of tooth extraction History of umbilical hernia repair Hx of surgical procedure Left Leg Wound Debridement and Irrigation S/P femoropopliteal bypass surgery S/P insertion of iliac artery stent B/L iliac stent placement (2014) 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 Family History Brother Family history of diabetes mellitus Sister Family history of diabetes mellitus Mother Family history of diabetes mellitus Grandmother (Maternal) Family history of diabetes mellitus Uncle Family hx of colon cancer Colorectal cancer Father Family history of esophageal cancer Sister Family history of diabetes mellitus Other No family history of adverse response to anesthesia Denies family history of Ovarian cancer Prostate cancer Myocardial infarction Breast cancer Social History Smoking Status: Former smoker Tobacco Type: Cigarettes and Smokeless Tobacco (Dip or Chew) Cigarettes Per Day: QUIT 15 YEARS AGO. HX OF 2 PPD "WASTED A LOT"; Second Hand Exposure: Yes (5 YRS AGO); Hx Alcohol Use: Yes Alcohol type: beer Hx Substance Use: No Preferred Language: Turkmen Communication Ability: Effective Visual Impairment: No Limitations Hearing Ability: Normal Grain Miller Helper Required: No Beliefs That Will Affect Care: None marital status: Current Living Situation: Other Current Living Situation Comment: LIVES WITH A ROOM MATE How many Children do You have: 2 Feels Safe at Home: Yes Childhood Exposure to Second-Hand Smoke: Yes Diet Comment: Carb Counts. ([id number], roughly) caffeine: Yes (coffee, rarely ) during the past year weight has: remained stable Dental Care, Regularly: No Physical Activity Frequency: 1-2 Times per Week Seatbelt Use: always Sunscreen Use: No Assistive Devices: Denture - Upper, Glasses, Walker and Wheelchair Allergies Allergies Allergy/AdvReac Type Severity Reaction Status Date / Time No Known Allergies Allergy Unknown Verified 01/13/21 18:33 Home Meds Home Medications Medication Instructions Recorded Confirmed aspirin 81 mg tablet,delayed 81 mg PO QAM tab 05/10/18 01/13/21 release clopidogrel [Plavix] 1 tab PO QAM 11/09/18 01/13/21 calcitriol [Rocaltrol] 0.25 mcg PO QAM 06/17/20 01/13/21 levothyroxine 175 mcg PO QAM 11/16/20 01/13/21 acetaminophen [Tylenol Extra 1,000 mg PO Q6 PRN 11/18/20 01/13/21 Strength] chlorthalidone 25 mg PO QAM 12/23/20 01/13/21 oxycodone 5 mg PO TID PRN 12/23/20 01/13/21 potassium chloride 20 meq PO BID 01/13/21 01/13/21 Previous Rx's Medication Instructions Recorded metoprolol tartrate 25 mg tablet 12.5 mg PO BID #90 tab 12/31/19 pantoprazole 40 mg tablet,delayed 40 mg PO QAM #30 tab 04/27/20 release atorvastatin 80 mg tablet 80 mg PO HS #90 tab 11/25/20 gentamicin 0.1 % topical ointment 1 applic TOPICAL ONCE 42 Days #30 g 11/25/20 doxycycline hyclate 100 mg tablet 100 mg PO BID 14 Days #28 tab 01/04/21 insulin aspart U-100 100 unit/mL 60 unit SQ UD #20 ml 01/13/21 subcutaneous solution Results & Data (ED) Vital Signs Vital Signs - 24 hr 01/13/21 16:01 01/13/21 17:01 01/13/21 17:12 Temperature 36.3 C L Temperature Source Temporal Artery Scan Pulse Rate 94 H Pulse Rate from SpO2 Sensor Respiratory Rate 18 20 Respiratory Effort / Characteristics Non-Labored Non-Labored Spontaneous Respiratory Depth Normal Blood Pressure 152/99 H Blood Pressure Mean 116 Pulse Oximetry 98 99 Oxygen Delivery Method Room Air Room Air Room Air Sepsis Recent Fever Within 48 Hours No Sepsis New/Unexplained Change in Mental Status No Sepsis Action Taken by Nursing No Action Required 01/13/21 17:16 01/13/21 17:30 01/13/21 18:00 Temperature Temperature Source Pulse Rate 77 76 81 Pulse Rate from SpO2 Sensor 76 80 84 Respiratory Rate 16 25 H 14 Respiratory Effort / Characteristics Respiratory Depth Blood Pressure 138/71 171/72 H 146/95 H Blood Pressure Mean 93 105 112 Pulse Oximetry 99 99 99 Oxygen Delivery Method Sepsis Recent Fever Within 48 Hours Sepsis New/Unexplained Change in Mental Status Sepsis Action Taken by Nursing 01/13/21 18:30 01/13/21 19:00 01/13/21 19:30 Temperature Temperature Source Pulse Rate 81 77 77 Pulse Rate from SpO2 Sensor 81 78 79 Respiratory Rate 20 17 15 Respiratory Effort / Characteristics Respiratory Depth Blood Pressure 136/65 143/66 H 124/64 Blood Pressure Mean 88 91 84 Pulse Oximetry 99 99 98 Oxygen Delivery Method Sepsis Recent Fever Within 48 Hours Sepsis New/Unexplained Change in Mental Status Sepsis Action Taken by Nursing 01/13/21 20:01 01/13/21 20:31 01/13/21 21:00 Temperature Temperature Source Pulse Rate 83 77 76 Pulse Rate from SpO2 Sensor 83 77 81 Respiratory Rate 18 19 19 Respiratory Effort / Characteristics Respiratory Depth Blood Pressure 133/47 L 129/42 L 156/51 H Blood Pressure Mean 75 71 86 Pulse Oximetry 99 99 99 Oxygen Delivery Method Sepsis Recent Fever Within 48 Hours Sepsis New/Unexplained Change in Mental Status Sepsis Action Taken by [facility] Medications Current Medication List: was personally reviewed by me Laboratory Data Attestation: I reviewed the patient's lab results. Result diagrams: 01/13/21 16:35 01/13/21 16:35 Lab Results 01/13/21 01/13/21 01/13/21 Range/Units 16:35 16:35 16:35 WBC 11.31 H (4.8-10.8) K/uL RBC 4.37 L (4.7-6.1) M/uL Hgb 12.2 L (14.0-18.0) g/dL Hct 36.6 L (42-52) % MCV 83.8 (80-100) fL MCH 27.9 (25-34) pg MCHC 33.3 (32-36) g/dL RDW Std Deviation 44.0 (36.4-46.3) fL RDW Coeff of Chan 14.3 (11.5-14.5) % Plt Count 427 H (130-400) K/uL MPV 9.7 (7.4-10.4) fL Immature Gran % (Auto) 0.2 % Neut % (Auto) 68.9 % Lymph % (Auto) 20.2 % [place] % (Auto) 9.9 % Eos % (Auto) 0.5 % Baso % (Auto) 0.3 % Neut # (Auto) 7.80 H (1.4-6.5) K/uL Lymph # (Auto) 2.28 (1.2-3.4) K/uL [place] # (Auto) 1.12 H (0.11-0.59) K/uL Eos # (Auto) 0.06 (0-0.5) K/uL Baso # (Auto) 0.03 (0-0.2) K/uL Immature Gran # (Auto) 0.02 (0.00-0.02) K/uL PT 10.8 (9.0-12.0) Seconds INR 1.1 (0.9-1.1) APTT 24.7 (21.0-31.0) Seconds PTT Ratio 0.9 Sodium 133 L (136-145) mmol/L Potassium 3.1 L (3.5-5.1) mmol/L Chloride 96 L (98-107) mmol/L Carbon Dioxide 29 (21-32) mmol/L Anion Gap 8.0 (3-11) BUN 22 H (7-18) mg/dl Creatinine 1.19 (0.6-1.4) mg/dl Est Cr Clr Drug Dosing Not Reportable Est GFR ( Amer) 74.9 Est GFR (Non-Af Amer) 64.6 BUN/Creatinine Ratio 18.9 (10-20) Glucose 101 H (70-99) mg/dl Lactate (0.4-2.0) mmol/L Calcium 9.4 (8.5-10.1) mg/dl Magnesium 1.6 L (1.8-2.4) mg/dl Total Bilirubin 1.4 H (0.2-1) mg/dl AST 19 (15-37) U/L ALT 16 (12-78) U/L Alkaline Phosphatase 186 H (45-117) U/L Total Protein 8.5 H (6.4-8.2) gm/dl Albumin 3.4 (3.4-5.0) gm/dl Globulin 5.1 H (2.5-4.0) gm/dl Albumin/Globulin Ratio 0.7 L (0.9-2) Procalcitonin (0-0.5) ng/ml COVID-19 Eval Order SARS-CoV-2 (PCR) (Negative) Influenza Type A (PCR) (Neg) Influenza Type B (PCR) (Neg) RSV (RT-PCR) (Neg) 01/13/21 01/13/21 01/13/21 Range/Units 16:35 17:20 17:20 WBC (4.8-10.8) K/uL RBC (4.7-6.1) M/uL Hgb (14.0-18.0) g/dL Hct (42-52) % MCV (80-100) fL MCH (25-34) pg MCHC (32-36) g/dL RDW Std Deviation (36.4-46.3) fL RDW Coeff of Chan (11.5-14.5) % Plt Count (130-400) K/uL MPV (7.4-10.4) fL Immature Gran % (Auto) % Neut % (Auto) % Lymph % (Auto) % [place] % (Auto) % Eos % (Auto) % Baso % (Auto) % Neut # (Auto) (1.4-6.5) K/uL Lymph # (Auto) (1.2-3.4) K/uL [place] # (Auto) (0.11-0.59) K/uL Eos # (Auto) (0-0.5) K/uL Baso # (Auto) (0-0.2) K/uL Immature Gran # (Auto) (0.00-0.02) K/uL PT (9.0-12.0) Seconds INR (0.9-1.1) APTT (21.0-31.0) Seconds PTT Ratio Sodium (136-145) mmol/L Potassium (3.5-5.1) mmol/L Chloride (98-107) mmol/L Carbon Dioxide (21-32) mmol/L Anion Gap (3-11) BUN (7-18) mg/dl Creatinine (0.6-1.4) mg/dl Est Cr Clr Drug Dosing Est GFR ( Amer) Est GFR (Non-Af Amer) BUN/Creatinine Ratio (10-20) Glucose (70-99) mg/dl Lactate (0.4-2.0) mmol/L Calcium (8.5-10.1) mg/dl Magnesium (1.8-2.4) mg/dl Total Bilirubin (0.2-1) mg/dl AST (15-37) U/L ALT (12-78) U/L Alkaline Phosphatase (45-117) U/L Total Protein (6.4-8.2) gm/dl Albumin (3.4-5.0) gm/dl Globulin (2.5-4.0) gm/dl Albumin/Globulin Ratio (0.9-2) Procalcitonin < 0.05 (0-0.5) ng/ml COVID-19 Eval Order CovFluRsv at [facility] SARS-CoV-2 (PCR) NEGATIVE (Negative) Influenza Type A (PCR) Negative (Neg) Influenza Type B (PCR) Negative (Neg) RSV (RT-PCR) Negative (Neg) 01/13/21 Range/Units 18:50 WBC (4.8-10.8) K/uL RBC (4.7-6.1) M/uL Hgb (14.0-18.0) g/dL Hct (42-52) % MCV (80-100) fL MCH (25-34) pg MCHC (32-36) g/dL RDW Std Deviation (36.4-46.3) fL RDW Coeff of Chan (11.5-14.5) % Plt Count (130-400) K/uL MPV (7.4-10.4) fL Immature Gran % (Auto) % Neut % (Auto) % Lymph % (Auto) % [place] % (Auto) % Eos % (Auto) % Baso % (Auto) % Neut # (Auto) (1.4-6.5) K/uL Lymph # (Auto) (1.2-3.4) K/uL [place] # (Auto) (0.11-0.59) K/uL Eos # (Auto) (0-0.5) K/uL Baso # (Auto) (0-0.2) K/uL Immature Gran # (Auto) (0.00-0.02) K/uL PT (9.0-12.0) Seconds INR (0.9-1.1) APTT (21.0-31.0) Seconds PTT Ratio Sodium (136-145) mmol/L Potassium (3.5-5.1) mmol/L Chloride (98-107) mmol/L Carbon Dioxide (21-32) mmol/L Anion Gap (3-11) BUN (7-18) mg/dl Creatinine (0.6-1.4) mg/dl Est Cr Clr Drug Dosing Est GFR ( Amer) Est GFR (Non-Af Amer) BUN/Creatinine Ratio (10-20) Glucose (70-99) mg/dl Lactate 1.3 (0.4-2.0) mmol/L Calcium (8.5-10.1) mg/dl Magnesium (1.8-2.4) mg/dl Total Bilirubin (0.2-1) mg/dl AST (15-37) U/L ALT (12-78) U/L Alkaline Phosphatase (45-117) U/L Total Protein (6.4-8.2) gm/dl Albumin (3.4-5.0) gm/dl Globulin (2.5-4.0) gm/dl Albumin/Globulin Ratio (0.9-2) Procalcitonin (0-0.5) ng/ml COVID-19 Eval Order SARS-CoV-2 (PCR) (Negative) Influenza Type A (PCR) (Neg) Influenza Type B (PCR) (Neg) RSV (RT-PCR) (Neg) Administered Medications Discontinued Medications Sodium Chloride (Nss 1000ml) 1,000 mls @ 999 mls/hr IV .[id number] LIZZY Stop: 01/13/21 18:15 Last Infusion: 01/13/21 19:09 Dose: 0 mls/hr Documented by: [id number] Admin: 01/13/21 17:17 Dose: 999 mls/hr Documented by: [id number] Daptomycin 525 mg/ Syringe 10.5 mls @ 5.25 mls/min IV TODAY@1715 [facility]; Protocol Stop: 01/13/21 17:16 Last Admin: 01/13/21 18:58 Dose: 5.25 mls/min Documented by: [id number] Cefepime HCl 2,000 mg/ Syringe 20 mls @ 5 mls/min IV TODAY@1715 [facility] Stop: 01/13/21 17:18 Last Admin: 01/13/21 18:58 Dose: 5 mls/min Documented by: [id number] Imaging Data Radiologist's Impression: Foot X-Ray 01/13/21 17:01 XR foot RT 2V HISTORY: 65 years-old Male diabetic foot ulcer chronic right foot pain with diabetic foot ulcer COMPARISON: Foot radiographs 09/16/2020 TECHNIQUE: 2 views of the right foot FINDINGS: Soft tissue ulcerations of the heel measure up to approximately 2 cm. No acute fracture, or dislocation. Demineralized appearance of the bones with moderate multifocal osteoarthritis. Cannulated screw of the first digit using the distal interphalangeal joint is intact. Soft tissue swelling of the distal first digit. Subtle cortical irregularity/erosions involve the medial cortex of the first distal phalanx. Cortical thickening of the second through fifth metatarsals may reflect healed fracture deformities. Arterial calcifications. IMPRESSION: 1. Soft tissue swelling of the great toe with soft tissue ulcerations of the heel. 2. Mild cortical irregularity/lucency involves the medial aspect of the first distal phalanx which is new from the 09/16/2020 study suggestive of osteomyelitis. ACT 112: Negative or not required by law. The above report was generated using voice recognition software. It may contain grammatical, syntax or spelling errors. Electronically signed by: Alberto Armstrong M.D. 01/13/2021 5:16 PM Discharge Plan Visit Data Chief Complaint: Wound Stated Complaint: RED TANYA ON R HEEL/LEG- DOC REF ED Provider: Balwinder Escamilla Discharge Problem: Osteomyelitis, Diabetic foot ulcer Forms Stand Alone Forms: [employer] Prescriptions Prescriptions: No Action aspirin 81 mg tablet,delayed release (DR/EC) 81 mg PO QAM RF: 0 gentamicin 0.1 % ointment 1 applic topical ONCE 42 Days Qty: 30 RF: 1 metoprolol tartrate 25 mg tablet 12.5 mg PO BID Qty: 90 RF: 3 pantoprazole [Protonix] 40 mg tablet,delayed release (DR/EC) 40 mg PO QAM Qty: 30 RF: 5 atorvastatin [Lipitor] 80 mg tablet 80 mg PO HS Qty: 90 RF: 3 doxycycline hyclate 100 mg tablet 100 mg PO BID 14 Days Qty: 28 RF: 0 insulin aspart U-100 [Novolog U-100 Insulin aspart] 100 unit/mL solution 60 unit SQ UD Qty: 20 RF: 5 calcitriol [Rocaltrol] 0.25 mcg capsule 0.25 mcg PO QAM RF: 0 levothyroxine 175 mcg tablet 175 mcg PO QAM RF: 0 acetaminophen [Tylenol Extra Strength] 500 mg Tablet 1,000 mg PO Q6 PRN (Reason: Pain) RF: 0 clopidogrel [Plavix] 75 mg Tablet 1 tab PO QAM RF: 0 chlorthalidone 25 mg tablet 25 mg PO QAM RF: 0 oxycodone 5 mg Tablet 5 mg PO TID PRN (Reason: Pain) RF: 0 potassium chloride 20 mEq tablet extended release 20 meq PO BID RF: 0 Discharge Problem: Osteomyelitis Qualifiers: Osteomyelitis type: unspecified type Osteomyelitis location: foot Laterality: right Qualified Code(s): M86.9 - Osteomyelitis, unspecified Diabetic foot ulcer Qualifiers: Diabetic foot ulcer location: heel Diabetes mellitus type: type 1 Laterality: right Non-pressure ulcer stage: with fat layer exposed Qualified Code(s): E10.621 - Type 1 diabetes mellitus with foot ulcer
[2021-01-13] MEDS ORDERED: SODIUM CHLORIDE 0.9% 1000ML 1,000 ML IV SCH (17:15)
[2021-01-13] MEDS ORDERED: CEFEPIME 2,000 MG in SYRINGE 0 ML IV SCH (17:15)
[2021-01-13] MEDS ORDERED: DAPTOmycin 525 MG in SYRINGE 0 ML IV SCH (17:15)
--- NOTE | 2021-01-13 17:18 | XRay Report ---
XR foot RT 2V HISTORY: 65 years-old Male diabetic foot ulcer chronic right foot pain with diabetic foot ulcer COMPARISON: Foot radiographs 09/16/2020 TECHNIQUE: 2 views of the right foot FINDINGS: Soft tissue ulcerations of the heel measure up to approximately 2 cm. No acute fracture, or dislocati on. Demineralized appearance of the bones with moderate multifocal osteoarthritis. Cannulated screw o f the first digit using the distal interphalangeal joint is intact. Soft tissue swelling of the dista l first digit. Subtle cortical irregularity/erosions involve the medial cortex of the first distal ph alanx. Cortical thickening of the second through fifth metatarsals may reflect healed fracture deform ities. Arterial calcifications. IMPRESSION: 1. Soft tissue swelling of the great toe with soft tissue ulcerations of the heel. 2. Mild cortical irregularity/lucency involves the medial aspect of the first distal phalanx which is new from the 09/16/2020 study suggestive of osteomyelitis. ACT 112: Negative or not required by law. The above report was generated using voice recognition software. It may contain grammatical, syntax o r spelling errors. Electronically signed by: Alberto Armstrong M.D. 01/13/2021 5:16 PM
[2021-01-13 17:21] LABS: Basophils # (auto) 0.03 K/uL (0-0.2); Basophils % (auto) 0.3 %; Eosinophils # (auto) 0.06 K/uL (0-0.5); Eosinophils % (auto) 0.5 %; Hematocrit (blood only) 36.6 % (42-52); Hemoglobin 12.2 g/dL (14.0-18.0); Immature Granulocytes # (auto) 0.02 K/uL (0.00-0.02); Immature Granulocytes % (auto) 0.2 %; Lymphocytes # (auto) 2.28 K/uL (1.2-3.4); Lymphocytes % (auto) 20.2 %; Mean Corpuscular Hemoglobin 27.9 pg (25-34); Mean Corpuscular Hgb Conc 33.3 g/dL (32-36); Mean Corpuscular Volume 83.8 fL (80-100); Mean Platelet Volume 9.7 fL (7.4-10.4); Monocytes # (auto) 1.12 K/uL (0.11-0.59); Monocytes % (auto) 9.9 %; Neutrophils % (auto) 68.9 %; Platelet Count 427 K/uL (130-400); RDW Coefficient of Variation 14.3 % (11.5-14.5); Red Blood Count 4.37 M/uL (4.7-6.1); White Blood Count 11.31 K/uL (4.8-10.8)
[2021-01-13 17:29] LABS: Alanine Aminotransferase 16 U/L (12-78); Albumin Level 3.4 gm/dl (3.4-5.0); Aspartate Aminotransferase 19 U/L (15-37); BUN Creatinine Ratio 18.9 (10-20); Blood Urea Nitrogen 22 mg/dl (7-18); Calcium 9.4 mg/dl (8.5-10.1); Carbon Dioxide 29 mmol/L (21-32); Chloride 96 mmol/L (98-107); Est GFR (African American) 74.9; Est GFR (Non-African American) 64.6; Glucose 101 mg/dl (70-99); Magnesium 1.6 mg/dl (1.8-2.4); Potassium 3.1 mmol/L (3.5-5.1); Sodium 133 mmol/L (136-145)
[2021-01-13 17:30] LABS: INR 1.1 (0.9-1.1); Partial Thromboplastin Ratio 0.9; Partial Thromboplastin Time 24.7 Seconds (21.0-31.0); Prothrombin Time 10.8 Seconds (9.0-12.0)
[2021-01-13 17:32] LABS: Albumin Globulin Ratio 0.7 (0.9-2); Alkaline Phosphatase 186 U/L (45-117); Bilirubin,Total 1.4 mg/dl (0.2-1); Globulin 5.1 gm/dl (2.5-4.0); Total Protein 8.5 gm/dl (6.4-8.2)
[2021-01-13 18:11] LABS: Influenza A virus by PCR Negative (Neg); Influenza B virus by PCR Negative (Neg); RSV by PCR Negative (Neg); SARS CoV2 RNA(COVID-19) InHosp NEGATIVE (Negative)
--- NOTE | 2021-01-13 21:06 | History & Physical Report ---
Date of Service January 13, 2021 Assessment & Plan (1) Diabetic ulcer of right great toe: Patient is a very pleasant 65-year-old gentleman with a notable past medical history of type 1 diabetes complicated with diabetic neuropathy in the lower extremities, multiple diabetic foot ulcers, peripheral arterial disease complicated by ischemic ulcers, chronic osteomyelitis, coronary artery disease status post CABG X1 in 2016, osteoporosis, CKD stage III, hypertension, aortic stenosis status post Porcine valve replacement in 2016, hypertension, hypothyroidism who presents for developing R heel cellulitis around a preexisting ulcer, likely contributory from both his PAD and diabetic neuropathy. He was also found to have evidence of changes in his R great toe c/f mild, developing osteomyelitis. He is hemodynamically stable. 1. Diabetic Ulcer of the Right Heel with Superimposed Cellulitis - * pictures in wound care note from 01/13 Clinically reporting increased erythema, discharge, and malodor over the last several days Mild leukocytosis, but otherwise no constitutional symptoms or systemic signs of infection Status post debridement in the wound care clinic on 01/13 Given the concern for cellulitis developing on top of this pre-existing wound, patient will be admitted for parenteral antibiotics History of Pseudomonas and MRSA on wound cultures Proceed with cefepime and daptomycin Continue Santyl and gentamicin with wound care Consult general surgery, appreciate input and recommendations on possible need for debridement Consult vascular surgery given likely contribution in the development of the cellulitis, appreciate incident recommendations whether revascularization may be warranted earlier than scheduled date at the beginning of February Wound care consult N.p.o. after midnight in case of need for procedure 2. Peripheral Vascular Disease Status post angiogram of the right lower extremity on November 09 Was originally scheduled for femoral-popliteal bypass surgery of this leg, however due to hypokalemia, was postponed to the beginning of February Consult vascular surgery as above Continue aspirin, Plavix, statin Wound care as above 3. Diabetic ulcer of right great toe, concern for underlying osteomyelitis -Status post debridement in the wound care clinic 01/13 -X-rays obtained in the ER did show cortical changes that are new from 09/16/2020 that are concerning for a mild, but developing osteomyelitis -Antibiotics as above -CT right foot without contrast for better characterization; of note, patient does have a screw in this foot, and therefore is not a candidate for MRI Pending results of CT, as well as severity, consider orthopedic consult 4. Hypokalemia, Hypomagnesemia - Replete 1g MgSO4, 10 mEq KCl rider, additive in NSS - BMP qAM Chronic medical problems Hypertension: Continue metoprolol, chlorthalidone Type 1 diabetes: Patient has insulin pump. Can utilize for now. We will proceed with AC at bedtime blood sugar checks. If needed, can consider pausing insulin pump and temporarily utilizing subcu insulin GERD: Continue pantoprazole Hypokalemia: Continue potassium chloride 20 mEq twice daily supplementation CKD 3: Avoid nephrotoxic meds Code: FULL CODE Diet: NPO after midnight, add NSS @ 80cc/hr + 20mEq KCl -- CC diet thereafter/when cleared Dispo: MS/Tele PPX: Neo, SCDs (2) Atherosclerosis of lower [place] artery of lower extremity with ulceration of foot: (3) PVD (peripheral vascular disease): (4) Diabetic ulcer of ankle associated with type 1 diabetes mellitus: (5) Osteomyelitis due to type 1 diabetes mellitus: (6) Vitamin D deficiency: (7) Diabetic peripheral neuropathy associated with type 1 diabetes mellitus: (8) Diabetic ulcer of toe of right foot: (9) Diabetic ulcer of left heel: (10) Diabetic ulcer of right heel: (11) Status post partial amputation of foot: (12) Ischemic ulcer: (13) Peripheral arterial disease: (14) Chronic osteomyelitis of right foot: (15) Osteomyelitis of toe of right foot: (16) PAD (peripheral artery disease): (17) Nephrolithiasis: (18) Osteoporosis: (19) Chronic renal disease, stage 3, moderately decreased glomerular filtration rate (GFR) between 30-59 mL/min/1.73 square meter: (20) Diabetes type 1, controlled: (21) History of aortic valve replacement: (22) Aortic stenosis: (23) CAD (coronary artery disease): (24) Hypertension: (25) Hypothyroidism: History of Present Illness Primary Care Provider: Enio Richards MD Patient is a very pleasant 65-year-old gentleman with a notable past medical history of type 1 diabetes complicated with diabetic neuropathy in the lower extremities, multiple diabetic foot ulcers, peripheral arterial disease complicated by ischemic ulcers, chronic osteomyelitis, coronary artery disease status post CABG X1 in 2016, osteoporosis, CKD stage III, hypertension, aortic stenosis status post Porcine valve replacement in 2016, hypertension, hypothyroidism who presents at the recommendation of wound care clinic for concerns of cellulitis of his right heel. Patient notes that over this past weekend, he did notice that his right heel was becoming more reddened, expressive discharge, and malodorous. He continued applying his dressings (inclusive of Aquacel, gentamicin, Santyl, and Betadine) without much relief. He denies any fevers, chills, rigors, or other constitutional symptoms throughout this time. Does endorse mild and intermittent nausea, but no loss of appetite. He presented to his wound care clinic earlier today, who noted that compared to his check last week, the right heel ulcer had deteriorated and was demonstrating cellulitic changes with fatty necrosis. It was debrided in the clinic. However, he was recommended to come to the ER out of concern for spreading soft tissue infection to receive parenteral antibiotics. Of note, patient did undergo a closed split thickness skin graft of the left lateral leg on November 18. He also underwent right lower extremity angiogram, with intention of femoral-popliteal bypass; however, this had to be rescheduled due to hypokalemia. He is currently scheduled for the beginning of February. He is also being followed by [facility] infectious disease, who recommends continuing daily doxycycline until after his revascularization. In the ER, patient was found to be hemodynamically stable, afebrile, and well-ap pearing. He does have a mild leukocytosis without true shift. He did not have a lactate or pro-Lionel level. He received Dapto and cefepime in the ED. Allergies Allergy/AdvReac Type Severity Reaction Status Date / Time No Known Allergies Allergy Unknown Verified 01/13/21 18:33 Home Medications Medication Instructions Recorded Confirmed Type aspirin 81 mg tablet,delayed 81 mg PO QAM tab 05/10/18 01/13/21 History release clopidogrel [Plavix] 1 tab PO QAM 11/09/18 01/13/21 History metoprolol tartrate 25 mg tablet 12.5 mg PO BID #90 tab 12/31/19 01/13/21 Rx pantoprazole 40 mg tablet,delayed 40 mg PO QAM #30 tab 04/27/20 01/13/21 Rx release calcitriol [Rocaltrol] 0.25 mcg PO QAM 06/17/20 01/13/21 History levothyroxine 175 mcg PO QAM 11/16/20 01/13/21 History acetaminophen [Tylenol Extra 1,000 mg PO Q6 PRN 11/18/20 01/13/21 History Strength] atorvastatin 80 mg tablet 80 mg PO HS #90 tab 11/25/20 01/13/21 Rx gentamicin 0.1 % topical ointment 1 applic TOPICAL ONCE 42 Days #30 g 11/25/20 01/13/21 Rx chlorthalidone 25 mg PO QAM 12/23/20 01/13/21 History oxycodone 5 mg PO TID PRN 12/23/20 01/13/21 History doxycycline hyclate 100 mg tablet 100 mg PO BID 14 Days #28 tab 01/04/21 01/13/21 Rx insulin aspart U-100 100 unit/mL 60 unit SQ UD #20 ml 01/13/21 01/13/21 Rx subcutaneous solution potassium chloride 20 meq PO BID 01/13/21 01/13/21 History Past Med/Surg History Medical History Aortic stenosis s/p porcine valve replacement (2015) with CABG x 1 CAD (coronary artery disease) s/p CABG x 1 (2015) Chronic renal disease, stage 3, moderately decreased glomerular filtration rate (GFR) between 30-59 mL/min/1.[address] Lerner Diabetes mellitus type 1 Diabetic autonomic neuropathy associated with type 1 diabetes mellitus Diabetic nephropathy associated with type 1 diabetes mellitus Dyslipidemia GERD (gastroesophageal reflux disease) Hypertension Hypothyroidism Insulin pump in place Nephrolithiasis Osteoarthritis Osteoporosis PAD (peripheral artery disease) Proliferative diabetic retinopathy associated with type 1 diabetes mellitus PVD (peripheral vascular disease) s/p B/L iliac artery stents (2014), R common/external iliac (2017), R common femoral endarterectomy (11/2018) with bovine patch. Left femoral to PT composite bypass graft (06/2020) Surgical History H/O cataract extraction R/L H/O endarterectomy R common femoral (11/2018) History of ankle surgery Left ankle (hardware since removed) History of aortic valve replacement 2016 ([facility] [place]) History of arterial bypass of lower extremity Left femoral to PT composite bypass graft (06/2020) History of cardiac cath 2016 > no stents (subsequent CABG with AVR in 2015) History of carpal tunnel release R/L History of colonoscopy History of coronary artery bypass graft CABG x1 + AVR (2016) History of esophagogastroduodenoscopy (EGD) History of myringotomy History of open reduction and internal fixation (ORIF) procedure LLE (1970s) History of skin graft Split Thickness Skin Graft of Left Lateral Ankle (11/18/20): LMA#5, atraumatic x1 at [facility] History of tonsillectomy History of tooth extraction History of umbilical hernia repair Hx of surgical procedure Left Leg Wound Debridement and Irrigation S/P femoropopliteal bypass surgery S/P insertion of iliac artery stent B/L iliac stent placement (2014) 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 Family History Brother Family history of diabetes mellitus Sister Family history of diabetes mellitus Mother Family history of diabetes mellitus Grandmother (Maternal) Family history of diabetes mellitus Uncle Family hx of colon cancer Colorectal cancer Father Family history of esophageal cancer Sister Family history of diabetes mellitus Other No family history of adverse response to anesthesia Denies family history of Ovarian cancer Prostate cancer Myocardial infarction Breast cancer Social History Smoking Status: Former smoker Tobacco Type: Cigarettes and Smokeless Tobacco (Dip or Chew) Cigarettes Per Day: QUIT 15 YEARS AGO. 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 ([id number], roughly) caffeine: Yes (coffee, rarely ) during the past year weight has: remained stable Dental Care, Regularly: No Physical Activity Frequency: 1-2 Times per Week Seatbelt Use: always Sunscreen Use: No Assistive Devices: Walker Assistive Devices Comment: Myrna shoe for right foot. Cam Boot for left foot Review of Systems Review of Systems: All systems reviewed & are unremarkable except as noted in HPI & below Physical Exam Constitutional: General: 65yoM who is alert, oriented, and appears in no acute distress. Does not have a sick-looking appearance. HEENT: NCAT. Eyes - Sclera are white, anicteric, and without injection. PERRL. EOMs display full ROM bilaterally. Mouth - MMM with no tonsillar edema or exudates. Cardiac: Normal rate and regular rhythm; S1 and S2 present with grade 1/6 POLO best heard at the RUSB. Pulmonary: Good respiratory effort with symmetric expansion of the chest. No use of accessory muscles. Lungs were clear to auscultation bilaterally with no crackles or wheezes. Abdominal: Normoactive bowel sounds. Abdomen was soft, nondistended, and non- tender to palpation. Extremities: The right lower extremity does demonstrate bandaging around the foot and great toe. These were recently placed at the wound care clinic after debridement of the heel. Skin is very mildly cool to the touch. Dorsalis pedis pulse was faintly present, 1+. Similarly, the left lower extremity is casted and does have James wraps around the foot. Capillary refill in both feet were approximately 3 to 4 seconds. These were not undone given the recency of the bandages, as well as pictures taken just a few hours ago visible in the wound care notes. Psych: Well-developed, well-nourished, appropriately dressed for occasion. Behavior is cooperative and appropriate. Affect is WNL. Insight is appropriate. Results & Data Results & Data ([facility]) Vital Signs (Past 12 Hours) Vital Signs Temp Pulse Resp BP Pulse Ox 01/13/21 20:01 83 18 133/47 L 99 01/13/21 19:30 77 15 124/64 98 01/13/21 19:00 77 17 143/66 H 99 01/13/21 18:30 81 20 136/65 99 01/13/21 18:00 81 14 146/95 H 99 01/13/21 17:30 76 25 H 171/72 H 99 01/13/21 17:16 77 16 138/71 99 01/13/21 17:12 99 01/13/21 17:01 20 01/13/21 16:01 36.3 C L 94 H 18 152/99 H 98 Laboratory Results Lab Results 01/13/21 01/13/21 01/13/21 Range/Units 16:35 16:35 16:35 WBC 11.31 H (4.8-10.8) K/uL RBC 4.37 L (4.7-6.1) M/uL Hgb 12.2 L (14.0-18.0) g/dL Hct 36.6 L (42-52) % MCV 83.8 (80-100) fL MCH 27.9 (25-34) pg MCHC 33.3 (32-36) g/dL RDW Std Deviation 44.0 (36.4-46.3) fL RDW Coeff of Chan 14.3 (11.5-14.5) % Plt Count 427 H (130-400) K/uL MPV 9.7 (7.4-10.4) fL Immature Gran % (Auto) 0.2 % Neut % (Auto) 68.9 % Lymph % (Auto) 20.2 % Liberty % (Auto) 9.9 % Eos % (Auto) 0.5 % Baso % (Auto) 0.3 % Neut # (Auto) 7.80 H (1.4-6.5) K/uL Lymph # (Auto) 2.28 (1.2-3.4) K/uL Liberty # (Auto) 1.12 H (0.11-0.59) K/uL Eos # (Auto) 0.06 (0-0.5) K/uL Baso # (Auto) 0.03 (0-0.2) K/uL Immature Gran # (Auto) 0.02 (0.00-0.02) K/uL PT 10.8 (9.0-12.0) Seconds INR 1.1 (0.9-1.1) APTT 24.7 (21.0-31.0) Seconds PTT Ratio 0.9 Sodium 133 L (136-145) mmol/L Potassium 3.1 L (3.5-5.1) mmol/L Chloride 96 L (98-107) mmol/L Carbon Dioxide 29 (21-32) mmol/L Anion Gap 8.0 (3-11) BUN 22 H (7-18) mg/dl Creatinine 1.19 (0.6-1.4) mg/dl Est Cr Clr Drug Dosing Not Reportable Est GFR ( Amer) 74.9 Est GFR (Non-Af Amer) 64.6 BUN/Creatinine Ratio 18.9 (10-20) Glucose 101 H (70-99) mg/dl POC Glucose (70-99) mg/dl Lactate (0.4-2.0) mmol/L Calcium 9.4 (8.5-10.1) mg/dl Magnesium 1.6 L (1.8-2.4) mg/dl Total Bilirubin 1.4 H (0.2-1) mg/dl AST 19 (15-37) U/L ALT 16 (12-78) U/L Alkaline Phosphatase 186 H (45-117) U/L Total Protein 8.5 H (6.4-8.2) gm/dl Albumin 3.4 (3.4-5.0) gm/dl Globulin 5.1 H (2.5-4.0) gm/dl Albumin/Globulin Ratio 0.7 L (0.9-2) Procalcitonin (0-0.5) ng/ml COVID-19 Eval Order SARS-CoV-2 (PCR) (Negative) Influenza Type A (PCR) (Neg) Influenza Type B (PCR) (Neg) RSV (RT-PCR) (Neg) 01/13/21 01/13/21 01/13/21 Range/Units 16:35 17:20 17:20 WBC (4.8-10.8) K/uL RBC (4.7-6.1) M/uL Hgb (14.0-18.0) g/dL Hct (42-52) % MCV (80-100) fL MCH (25-34) pg MCHC (32-36) g/dL RDW Std Deviation (36.4-46.3) fL RDW Coeff of Chan (11.5-14.5) % Plt Count (130-400) K/uL MPV (7.4-10.4) fL Immature Gran % (Auto) % Neut % (Auto) % Lymph % (Auto) % Liberty % (Auto) % Eos % (Auto) % Baso % (Auto) % Neut # (Auto) (1.4-6.5) K/uL Lymph # (Auto) (1.2-3.4) K/uL Liberty # (Auto) (0.11-0.59) K/uL Eos # (Auto) (0-0.5) K/uL Baso # (Auto) (0-0.2) K/uL Immature Gran # (Auto) (0.00-0.02) K/uL PT (9.0-12.0) Seconds INR (0.9-1.1) APTT (21.0-31.0) Seconds PTT Ratio Sodium (136-145) mmol/L Potassium (3.5-5.1) mmol/L Chloride (98-107) mmol/L Carbon Dioxide (21-32) mmol/L Anion Gap (3-11) BUN (7-18) mg/dl Creatinine (0.6-1.4) mg/dl Est Cr Clr Drug Dosing Est GFR ( Amer) Est GFR (Non-Af Amer) BUN/Creatinine Ratio (10-20) Glucose (70-99) mg/dl POC Glucose (70-99) mg/dl Lactate (0.4-2.0) mmol/L Calcium (8.5-10.1) mg/dl Magnesium (1.8-2.4) mg/dl Total Bilirubin (0.2-1) mg/dl AST (15-37) U/L ALT (12-78) U/L Alkaline Phosphatase (45-117) U/L Total Protein (6.4-8.2) gm/dl Albumin (3.4-5.0) gm/dl Globulin (2.5-4.0) gm/dl Albumin/Globulin Ratio (0.9-2) Procalcitonin < 0.05 (0-0.5) ng/ml COVID-19 Eval Order CovFluRsv at [facility] SARS-CoV-2 (PCR) NEGATIVE (Negative) Influenza Type A (PCR) Negative (Neg) Influenza Type B (PCR) Negative (Neg) RSV (RT-PCR) Negative (Neg) 01/13/21 01/14/21 Range/Units 18:50 00:25 WBC (4.8-10.8) K/uL RBC (4.7-6.1) M/uL Hgb (14.0-18.0) g/dL Hct (42-52) % MCV (80-100) fL MCH (25-34) pg MCHC (32-36) g/dL RDW Std Deviation (36.4-46.3) fL RDW Coeff of Chan (11.5-14.5) % Plt Count (130-400) K/uL MPV (7.4-10.4) fL Immature Gran % (Auto) % Neut % (Auto) % Lymph % (Auto) % Liberty % (Auto) % Eos % (Auto) % Baso % (Auto) % Neut # (Auto) (1.4-6.5) K/uL Lymph # (Auto) (1.2-3.4) K/uL Liberty # (Auto) (0.11-0.59) K/uL Eos # (Auto) (0-0.5) K/uL Baso # (Auto) (0-0.2) K/uL Immature Gran # (Auto) (0.00-0.02) K/uL PT (9.0-12.0) Seconds INR (0.9-1.1) APTT (21.0-31.0) Seconds PTT Ratio Sodium (136-145) mmol/L Potassium (3.5-5.1) mmol/L Chloride (98-107) mmol/L Carbon Dioxide (21-32) mmol/L Anion Gap (3-11) BUN (7-18) mg/dl Creatinine (0.6-1.4) mg/dl Est Cr Clr Drug Dosing Est GFR ( Amer) Est GFR (Non-Af Amer) BUN/Creatinine Ratio (10-20) Glucose (70-99) mg/dl POC Glucose 131 H (70-99) mg/dl Lactate 1.3 (0.4-2.0) mmol/L Calcium (8.5-10.1) mg/dl Magnesium (1.8-2.4) mg/dl Total Bilirubin (0.2-1) mg/dl AST (15-37) U/L ALT (12-78) U/L Alkaline Phosphatase (45-117) U/L Total Protein (6.4-8.2) gm/dl Albumin (3.4-5.0) gm/dl Globulin (2.5-4.0) gm/dl Albumin/Globulin Ratio (0.9-2) Procalcitonin (0-0.5) ng/ml COVID-19 Eval Order SARS-CoV-2 (PCR) (Negative) Influenza Type A (PCR) (Neg) Influenza Type B (PCR) (Neg) RSV (RT-PCR) (Neg) Diagnostic Findings XR foot RT 2V HISTORY: 65 years-old Male diabetic foot ulcer chronic right foot pain with diabetic foot ulcer COMPARISON: Foot radiographs 09/16/2020 TECHNIQUE: 2 views of the right foot FINDINGS: Soft tissue ulcerations of the heel measure up to approximately 2 cm. No acute fracture, or dislocation. Demineralized appearance of the bones with moderate multifocal osteoarthritis. Cannulated screw of the first digit using the distal interphalangeal joint is intact. Soft tissue swelling of the distal first digit. Subtle cortical irregularity/erosions involve the medial cortex of the first distal phalanx. Cortical thickening of the second through fifth metatarsals may reflect healed fracture deformities. Arterial calcifications. IMPRESSION: 1. Soft tissue swelling of the great toe with soft tissue ulcerations of the heel. 2. Mild cortical irregularity/lucency involves the medial aspect of the first distal phalanx which is new from the 09/16/2020 study suggestive of osteomyelitis. ACT 112: Negative or not required by law. The above report was generated using voice recognition software. It may contain grammatical, syntax or spelling errors. Electronically signed by: Alberto Armstrong M.D. 01/13/2021 5:16 PM Dictated: 01/13/211712Transcribed: 01/13/211712 ECG Additional Comments: EKG wtih NSR at 77 bpm, normal axis, VL=212, ZPI=553, MPx=614, RBBB present, no change from prior study Supervising Physician Co-Signing Physician Notes Patient seen and examined, chart reviewed, case discussed with Dr. Reese and I agree with his assessment and plan as documented above. Briefly, patient is a 65yo C male with multiple medical problems, PVD with nonhealing wounds on RLE presenting with concern for wound infection, possible osteomyelitis Patient afebrile, HD stable, non-toxic in appearance Wounds are dressed - photographs taken in Wound clinic immediately prior to arrival, palpable pulses 1+ in bilateral LE Heart - +S1/S2, regular 2/6 POLO across precordium Lungs - CTA Abd - +BS, soft, NT/ND Ext- RLE dressings in place, c/d/i Labs and images reviewed WBC=11.31, stable normochromic/normocytic anemia with Hgb=12.2, Hct=36.6, Jbf=241 Assessment/Plan -Follow cultures -Vancomycin and Cefepime for now -Consult Vascular surgery - appreciate assistance -Consult General Surgery for possible debridement needs - appreciate assistance Remainder of plan as above Resident Activity Tracking Resident Involvement: Resident Care Provided Care Provided: Adult Hospital Medicine (1) Ischemic ulcer Non-pressure ulcer stage: with fat layer exposed Qualified Code(s): L98.492 - Non-pressure chronic ulcer of skin of other sites with fat layer exposed
[2021-01-13] MEDS ORDERED: ALUMINUM/MAGNESIUM SUSP 30 ML UDC PO PRN (22:45)
[2021-01-13] MEDS ORDERED: PATIENT'S HEIGHT AND/OR WEIGHT NEEDED STA (22:52)
[2021-01-13] MEDS ORDERED: oxyCODONE HCL IR 5 MG TAB (IMMEDIATE RELEASE) PO PRN (22:56)
[2021-01-13] MEDS ORDERED: MAGNESIUM SULFATE / D5W 1 GM/100 ML BAG IV ONE (23:00)
[2021-01-13] MEDS: NSS + 20MEQ KCL 20 MEQ/1,000 ML BAG IV SCH (23:30)
[2021-01-13] MEDS: ENOXAPARIN INJ 30 MG/0.3 ML SYR SQ SCH (23:31)
[2021-01-13] MEDS: POTASSIUM CHLORIDE CRTAB 20 MEQ TABCR PO SCH (23:32)
[2021-01-13] MEDS: METOPROLOL TARTRATE 25 MG TAB PO SCH (23:33)
[2021-01-13] MEDS: ATORVASTATIN 40 MG TAB PO SCH (23:33)
[2021-01-13] MEDS ORDERED: GLUCOSE 10 TABS/TUBE PO PRN (23:45)
[2021-01-13] MEDS ORDERED: GLUCAGON FOR INJ 1 MG VIAL IM PRN (23:45)
[2021-01-13] MEDS ORDERED: DEXTROSE 50% 50 ML SYRINGE IV PRN (23:45)
[2021-01-13] MEDS ORDERED: CARBOHYDRATES FOR HYPOGLYCEMIA PO PRN (23:45)
[2021-01-13] MEDS ORDERED: GLUCOSE 40% GEL 15 GM TUBE PO PRN (23:45)
[2021-01-13] MEDS: POTASSIUM CHLORIDE / WTR 10 MEQ/100 ML PLCT IV SCH (23:45)
[2021-01-14] MEDS ORDERED: ACETAMINOPHEN 500 MG TAB PO PRN
--- NOTE | 2021-01-14 00:51 | Billing Data ---
Date of Service January 13, 2021 Coding Level of Care Code 20543 Initial Inpt Care Lvl 3
[2021-01-14] MEDS: POTASSIUM CHLORIDE / WTR 10 MEQ/100 ML PLCT IV SCH (01:08)
--- NOTE | 2021-01-14 03:20 | Surgery Consultation ---
Date of Consultation January 14, 2021 Assessment & Plan (1) Diabetic foot ulcer: Patient has been admitted to the medical service with the following interventions in place: He has been placed on antibiotics in the form of daptomycin and cefepime His potassium is being supplemented Care nurse has been consulted Due to his known peripheral vascular disease and planned revascularization a consult has been placed to his vascular surgeon Dr. Eason We have been asked to see for consideration of debridement of this wound. We will hold on this until seen by Dr. Eason to determine what his revascularization plans are. Recommendations be forthcoming once seen by Dr. Eason. Supervising Physician Co-Signing Physician Notes As per Pete OLIVER At the present time we recommend proceeding with vascular evaluation and possibly revascularization prior to any debridement The patient denies any chills or fever the calcaneus ulceration is dry there is no surrounding cellulitis and I do not see any drainage at this time All questions were answered History of Present Illness Reason for Consultation: Nonhealing wound of right foot Attending Physician: Yisel Wei, DO History of Present Illness This is a 65-year-old male who presented to [facility] emergency department at the recommendation of his wound care physician due to concern for worsening infection of the right foot. Patient has a longstanding history of peripheral vascular disease. He is an insulin-dependent diabetic and has been so since his 20s. Patient notes that he did have wounds on his left foot. Did undergo a left ankle split-thickness skin graft in November of this year. He notes that this is healed well. He also notes he has gone low revascularization of his left leg in the form of a left femoral-popliteal bypass. Patient notes that he has had a wound/ulcer on his right heel for approximately 1 year. His records were reviewed and due to this wound he has been seen by [facility] infectious disease and he has been on doxycycline. Patient has been scheduled for revascularization of this lower extremity and is been recommended he remain on antibiotics at least until after his surgery. Patient underwent a lower extremity angiogram by Dr. Eason on 11/09/2020 and he was ultimately scheduled for a revascularization procedure of his right leg on January 07 of this year however the surgery was delayed due to hypokalemia. His surgery has been rescheduled for February 10 of this year. Patient has been following at the wound care center and he was seen there yesterday and was noted the patient had increased odor and drainage of his foot. His wound was noted to have increased characteristics of cellulitis so he was referred to the emergency department for inpatient treatment of this wound. This did with the patient at his bedside he denies any fevers, shakes, chills. He does note decreased sensation in his foot. He denies any pain in his foot at the present time and notes that he has been making attempts to not bear weight on his affected foot is much as possible. He denies any chest pain or shortness of breath. Since admission patient has had x-rays and labs which I independently reviewed. He did have a foot x-ray of his right foot which showed findings concerning for osteomyelitis. He also had a CT scan of his foot that showed concern for osteomyelitis of the distal phalanx. Labs included a CBC where his white blood cell count is 11.3. Hemoglobin and hematocrit of 12.2 and 36.6 respectively. Platelet count is 4 and 27,000. Chemistry profile showed a sodium and potassium are 133 and 3.1 respectively. His BUN and creatinine are 22 and 1.1. Covid test was performed as noted be negative. At the time of my interview the patient was resting comfortably in bed in no distress Allergies Allergy/AdvReac Type Severity Reaction Status Date / Time No Known Allergies Allergy Unknown Verified 01/13/21 18:33 Home Medications Medication Instructions Recorded Confirmed Type aspirin 81 mg tablet,delayed 81 mg PO QAM tab 05/10/18 01/13/21 History release clopidogrel [Plavix] 1 tab PO QAM 11/09/18 01/13/21 History metoprolol tartrate 25 mg tablet 12.5 mg PO BID #90 tab 12/31/19 01/13/21 Rx pantoprazole 40 mg tablet,delayed 40 mg PO QAM #30 tab 04/27/20 01/13/21 Rx release calcitriol [Rocaltrol] 0.25 mcg PO QAM 06/17/20 01/13/21 History levothyroxine 175 mcg PO QAM 11/16/20 01/13/21 History acetaminophen [Tylenol Extra 1,000 mg PO Q6 PRN 11/18/20 01/13/21 History Strength] atorvastatin 80 mg tablet 80 mg PO HS #90 tab 11/25/20 01/13/21 Rx gentamicin 0.1 % topical ointment 1 applic TOPICAL ONCE 42 Days #30 g 11/25/20 01/13/21 Rx chlorthalidone 25 mg PO QAM 12/23/20 01/13/21 History oxycodone 5 mg PO TID PRN 12/23/20 01/13/21 History doxycycline hyclate 100 mg tablet 100 mg PO BID 14 Days #28 tab 01/04/21 01/13/21 Rx potassium chloride 20 meq PO BID 01/13/21 01/13/21 History insulin aspart U-100 100 unit/mL 60 unit SQ UD #20 ml 01/14/21 Rx subcutaneous solution Patient History Medical History Aortic stenosis s/p porcine valve replacement (2015) with CABG x 1 CAD (coronary artery disease) s/p CABG x 1 (2015) Chronic renal disease, stage 3, moderately decreased glomerular filtration rate (GFR) between 30-59 mL/min/1.[address] Lerner Diabetes mellitus type 1 Diabetic autonomic neuropathy associated with type 1 diabetes mellitus Diabetic nephropathy associated with type 1 diabetes mellitus Dyslipidemia GERD (gastroesophageal reflux disease) Hypertension Hypothyroidism Insulin pump in place Nephrolithiasis Osteoarthritis Osteoporosis PAD (peripheral artery disease) Proliferative diabetic retinopathy associated with type 1 diabetes mellitus PVD (peripheral vascular disease) s/p B/L iliac artery stents (2014), R common/external iliac (2017), R common femoral endarterectomy (11/2018) with bovine patch. Left femoral to PT composite bypass graft (06/2020) Surgical History H/O cataract extraction R/L H/O endarterectomy R common femoral (11/2018) History of ankle surgery Left ankle (hardware since removed) History of aortic valve replacement [place] [place] History of arterial bypass of lower extremity Left femoral to PT composite bypass graft (06/2020) History of cardiac cath 2016 > no stents (subsequent CABG with AVR in 2015) History of carpal tunnel release R/L History of colonoscopy History of coronary artery bypass graft CABG x1 + AVR (2015) History of esophagogastroduodenoscopy (EGD) History of myringotomy History of open reduction and internal fixation (ORIF) procedure LLE () History of skin graft Split Thickness Skin Graft of Left Lateral Ankle (11/18/20): LMA#5, atraumatic x1 at [facility] History of tonsillectomy History of tooth extraction History of umbilical hernia repair Hx of surgical procedure Left Leg Wound Debridement and Irrigation S/P femoropopliteal bypass surgery S/P insertion of iliac artery stent B/L iliac stent placement (2014) 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 Family History Brother Family history of diabetes mellitus Sister Family history of diabetes mellitus Mother Family history of diabetes mellitus Grandmother (Maternal) Family history of diabetes mellitus Uncle Family hx of colon cancer Colorectal cancer Father Family history of esophageal cancer Sister Family history of diabetes mellitus Other No family history of adverse response to anesthesia Denies family history of Ovarian cancer Prostate cancer Myocardial infarction Breast cancer Social History Smoking Status: Former smoker Tobacco Type: Cigarettes and Smokeless Tobacco (Dip or Chew) Cigarettes Per Day: QUIT 15 YEARS AGO. HX OF 2 PPD "WASTED A LOT"; Smoking End Date: 15 years ago; Second Hand Exposure: No; Hx Alcohol Use: Yes Alcohol type: beer Hx Substance Use: No Preferred Language: Trinidadian Communication Ability: Effective Visual Impairment: No Limitations Hearing Ability: Normal [employer] Supervisor Required: No Beliefs That Will Affect Care: None marital status: Current Living Situation: Other Current Living Situation Comment: lives with room mate How many Children do You have: 2 Other Information That Helps Us Care for You: No Feels Safe at Home: Yes Safety Concerns: Feels Safe At This Time Childhood Exposure to Second-Hand Smoke: Yes Diet Comment: Carb Counts. (1070-7211, roughly) caffeine: Yes (coffee, rarely ) during the past year weight has: remained stable Dental Care, Regularly: No Physical Activity Frequency: 1-2 Times per Week Seatbelt Use: always Sunscreen Use: No Assistive Devices: Walker Assistive Devices Comment: Myrna shoe for right foot. Cam Boot for left foot Review of Systems Constitutional: no fever and no chills Eyes: no diplopia Ear, Nose, Mouth, Throat: no ear pain Respiratory: no cough and no dyspnea Cardiovascular: no chest pain Gastrointestinal: no abdominal pain Genitourinary: no dysuria Musculoskeletal: no back pain Integumentary: no rash Neurologic: no localized weakness Physical Exam Physical Exam: Patient's peripheral pulses were examined. He has 1+ femoral pulses noted bilaterally. He also had 1+ popliteal pulses noted bilaterally. Did not have palpable pedal pulses in either foot bilaterally. His left foot was examined and there are no open wounds noted. Patient's right foot was examined and patient was noted to have an extensive wound of the right heel which encompassed nearly entire heel. There is no drainage at the time of my interview. There was an extensive eschar. The foot was not malodorous. Patient was noted to have decreased sensation in his foot extending from the distal toes to his malleolus. His sensation was decreased to both light touch and sharp sensation. Constitutional: well developed and well nourished; no acute distress Eyes: no conjunctival abnormality ENMT: Ears: no hearing impairment Neck: trachea midline Respiratory: normal respiratory effort; no respiratory distress and no labored breathing Cardiovascular: Rate/Rhythm: regular rate and regular rhythm Gastrointestinal (Abdomen): Percussion/Palpation: abdomen soft Musculoskeletal: No calf tenderness Skin: no rashes, warm and dry Neurologic: moves all extremities Psychiatric: Orientation: alert Results & Data ([facility]) Vital Signs (Past 12 Hours) Vital Signs Temp Pulse Pulse Resp BP BP Pulse Ox 01/13/21 23:59 64 01/13/21 23:43 37 C 79 18 151/78 H 99 01/13/21 23:40 37.2 C 87 18 130/77 97 01/13/21 23:00 64 01/13/21 21:30 80 18 136/71 98 01/13/21 21:00 76 19 156/51 H 99 01/13/21 20:31 77 19 129/42 L 99 01/13/21 20:01 83 18 133/47 L 99 01/13/21 19:30 77 15 124/64 98 01/13/21 19:00 77 17 143/66 H 99 01/13/21 18:30 81 20 136/65 99 01/13/21 18:00 81 14 146/95 H 99 01/13/21 17:30 76 25 H 171/72 H 99 01/13/21 17:16 77 16 138/71 99 01/13/21 17:12 99 01/13/21 17:01 20 01/13/21 16:01 36.3 C L 94 H 18 152/99 H 98 PG Care Time/CCT Total # of Minutes Spent Total Time Spent with Patient: Total time spent is greater than 50% in coordination of care (as documented) at patient's floor/unit and/or counseling patient: Coding Level of Care Code 26872 Inpt Consult Level 5 Diagnoses Diabetic foot ulcer E10.621; L97.412 Diabetes mellitus type: type 1 Diabetic foot ulcer location: heel Laterality: right Non-pressure ulcer stage: with fat layer exposed (1) Diabetic foot ulcer Diabetes mellitus type: type 1 Diabetic foot ulcer location: heel Laterality: right Non-pressure ulcer stage: with fat layer exposed Qualified Code(s): E10.621 - Type 1 diabetes mellitus with foot ulcer; L97.412 - Non- pressure chronic ulcer of right heel and midfoot with fat layer exposed
[2021-01-14] MEDS: LEVOTHYROXINE SODIUM 175 MCG TABLET PO SCH (03:46)
[2021-01-14] MEDS: CEFEPIME 2,000 MG in SYRINGE 0 ML IV SCH ×3 (03:46→20:29)
[2021-01-14 06:56] LABS: Basophils # (auto) 0.02 K/uL (0-0.2); Basophils % (auto) 0.2 %; Eosinophils # (auto) 0.11 K/uL (0-0.5); Eosinophils % (auto) 1.1 %; Hematocrit (blood only) 33.5 % (42-52); Hemoglobin 10.8 g/dL (14.0-18.0); Immature Granulocytes # (auto) 0.02 K/uL (0.00-0.02); Immature Granulocytes % (auto) 0.2 %; Lymphocytes % (auto) 23.8 %; Mean Corpuscular Hemoglobin 27.2 pg (25-34); Mean Corpuscular Hgb Conc 32.2 g/dL (32-36); Mean Corpuscular Volume 84.4 fL (80-100); Mean Platelet Volume 9.7 fL (7.4-10.4); Monocytes # (auto) 1.15 K/uL (0.11-0.59); Monocytes % (auto) 11.4 %; Neutrophils # (auto) 6.37 K/uL (1.4-6.5); Neutrophils % (auto) 63.3 %; Platelet Count 324 K/uL (130-400); RDW Coefficient of Variation 14.3 % (11.5-14.5); RDW Standard Deviation 44.4 fL (36.4-46.3); Red Blood Count 3.97 M/uL (4.7-6.1); White Blood Count 10.07 K/uL (4.8-10.8)
[2021-01-14 07:31] LABS: BUN Creatinine Ratio 20.5 (10-20); Calcium 8.4 mg/dl (8.5-10.1); Creatinine Clr Calc Pharmacy 89.6 ml/min; Est GFR (Non-African American) 90.6; Potassium 3.2 mmol/L (3.5-5.1)
[2021-01-14 07:32] LABS: C Reactive Protein 4.62 mg/dl (0-0.29)
--- NOTE | 2021-01-14 07:56 | Electrocardiogram Report ---
Test Reason : Blood Pressure : / mmHG Vent. Rate : 077 BPM Atrial Rate : 077 BPM P-R Int : 180 ms QRS Dur : 162 ms QT Int : 450 ms P-R-T Axes : 034 026 035 degrees QTc Int : 509 ms Poor data quality, interpretation may be adversely affected Normal sinus rhythm with sinus arrhythmia Right bundle branch block Cannot rule out Old Inferior infarct (cited on or before 31-JUL-2020) Abnormal ECG When compared with ECG of 31-JUL-2020 08:01, No significant change was found Confirmed by Donell Fuentes ([id number]) on 01/14/2021 7:56:25 AM Referred By: REFERRED SELF Confirmed By:Donell Fuentes
[2021-01-14] MEDS ORDERED: POTASSIUM CHLORIDE CRTAB 20 MEQ TABCR PO ONE (08:00)
--- NOTE | 2021-01-14 08:20 | CT Scan Report ---
CT SCAN OF THE RIGHT FOOT WITHOUT IV CONTRAST CLINICAL HISTORY: First toe infection. COMPARISON STUDY: Radiographs of the right foot dated 01/13/2021. MRI of the right forefoot dated . TECHNIQUE: CT scan of the right foot is performed from the ankle to the base of the foot. Images are reviewed in the axial, sagittal, and coronal planes. IV contrast was not administered for this examin ation. Assessment of the first toe is significantly degraded by streak artifact from metallic hardwar e. A dose lowering technique was utilized adhering to the principles of ALARA. CT DOSE: 188.77 mGy.cm FINDINGS: The skeletal structures are heterogeneously osteopenic. No acute fracture is identified. Th ere is postoperative change from fusion at the first interphalangeal joint with a cortical lag screw transfixing the joint. The orthopedic hardware appears intact. Question mild erosive change along the plantar and medial base of the first distal phalanx (axial image #253). There is overlying soft tiss ue infiltration and dermal thickening. Arthritic change is seen throughout the foot. Chronic posttrau matic deformity is suggested at the base of the fourth metatarsal. There is a small dorsal calcaneal enthesophyte. There is no evidence of Lisfranc injury. There is generalized atrophy of the regional m usculature. Atherosclerotic calcification is noted in the regional arteries. The Achilles tendon is i ntact as imaged. A cutaneous ulceration is suggested in the dorsal heel. IMPRESSION: 1. No acute fracture is identified. 2. There is postoperative change in the first toe as above. 3. Suspect erosive change along the plantar and medial base of the first distal phalanx. These findin gs are suspicious for osteomyelitis. 4. There is soft tissue edema and dermal thickening identified in the first toe. Correlate clinically for evidence of cellulitis. 5. No organized fluid collection is seen to suggest abscess. 6. A cutaneous ulceration with surrounding cellulitis is suggested posterior to the calcaneus. Clinic al correlation will be required. ACT 112: Negative or not required by law. Dictated: 01/14/2021 7:54 AM Transcribed: 01/14/2021 8:12 AM Keri [id number] [email or web address]_Tori Electronically signed by: Tae Pizarro M.D. 01/14/2021 8:19 AM
[2021-01-14] MEDS: NSS + 20MEQ KCL 20 MEQ/1,000 ML BAG IV SCH ×3 (09:08→20:27)
[2021-01-14] MEDS: NovoLOG INSULIN PUMP SCH ×4 (09:09→20:29)
[2021-01-14] MEDS: POTASSIUM CHLORIDE CRTAB 20 MEQ TABCR PO SCH ×2 (09:24→18:26)
[2021-01-14] MEDS: GENTAMICIN SULFATE 0.1% CR 15 GM TUBE EXT SCH (10:00)
[2021-01-14] MEDS: CALCITRIOL 0.25 MCG CAPSULE PO SCH (11:20)
[2021-01-14] MEDS: CLOPIDOGREL BISULFATE 75 MG TAB PO SCH (11:20)
[2021-01-14] MEDS: METOPROLOL TARTRATE 25 MG TAB PO SCH ×2 (11:20→20:30)
[2021-01-14] MEDS: PANTOprazole 40 MG TAB PO SCH (11:21)
[2021-01-14] MEDS: ASPIRIN 81 MG ECTAB PO SCH (11:21)
[2021-01-14] MEDS: CHLORTHALIDONE 25 MG TAB PO SCH (11:21)
[2021-01-14] MEDS: ENOXAPARIN INJ 30 MG/0.3 ML SYR SQ SCH ×2 (11:21→20:29)
--- NOTE | 2021-01-14 13:00 | Hospitalist Progress Note ---
Date of Service January 14, 2021 Assessment & Plan (1) Diabetic ulcer of right great toe: Patient is a very pleasant 65-year-old gentleman with a notable past medical history of type 1 diabetes complicated with multiple diabetic foot ulcers, peripheral arterial disease complicated by ischemic ulcers, chronic osteomyelitis, who was admitted for outpatient management of of R heel cellulitis around a preexisting ulcer and R great toe developing osteomyelitis. 1. 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 after midnight in case of need for procedure 2. Peripheral Vascular Disease Status post angiogram of the right lower extremity on November 09 Was originally scheduled for femoral-popliteal bypass surgery of this leg, however due to hypokalemia, was postponed to the beginning of February Consult vascular surgery as above Continue aspirin, Plavix, statin 3. Diabetic ulcer of right great toe, concern for underlying osteomyelitis -Status post debridement in the wound care clinic 01/13 -X-rays obtained in the ER did show cortical changes, new from 09/16/2020, that are concerning for a mild, but developing osteomyelitis -CT right foot without contrast showing erosive change along the plantar and medial base of the first distal phalanx, suspicious for osteomyelitis. -patient does have a screw in this foot, and therefore is not a candidate for MRI General surgery following - awaiting input from vascular surgery before proceeding with surgical debridement -Antibiotics as above 4. Hypokalemia, Hypomagnesemia - Replete - BMP qAM Chronic medical problems Hypertension: Continue metoprolol, chlorthalidone Type 1 diabetes: Patient has insulin pump. Can utilize for now. We will proceed with AC at bedtime blood sugar checks. If needed, can consider pausing insulin pump and temporarily utilizing subcu insulin GERD: Continue pantoprazole Hypokalemia: Continue potassium chloride 20 mEq twice daily supplementation CKD 3: Avoid nephrotoxic meds Code: FULL CODE Diet: CC DM2 Dispo: Med/surg PPX: Lovenox, SCDs (2) Atherosclerosis of [place] artery of lower extremity with ulceration of foot: (3) PVD (peripheral vascular disease): (4) Diabetic ulcer of ankle associated with type 1 diabetes mellitus: (5) Osteomyelitis due to type 1 diabetes mellitus: (6) Vitamin D deficiency: (7) Diabetic peripheral neuropathy associated with type 1 diabetes mellitus: (8) Diabetic ulcer of toe of right foot: (9) Diabetic ulcer of left heel: (10) Diabetic ulcer of right heel: (11) Status post partial amputation of foot: (12) Ischemic ulcer: (13) Peripheral arterial disease: (14) Chronic osteomyelitis of right foot: (15) Osteomyelitis of toe of right foot: (16) Nephrolithiasis: (17) Osteoporosis: (18) Chronic renal disease, stage 3, moderately decreased glomerular filtration rate (GFR) between 30-59 mL/min/1.73 square meter: (19) Diabetes type 1, controlled: (20) History of aortic valve replacement: (21) Aortic stenosis: (22) CAD (coronary artery disease): (23) Hypertension: (24) Hypothyroidism: Admission and Anticipated Discharge Date Admission Date: January 13, 2021 Supervising Physician Co-Signing Physician Notes Resident Physician Supervision Note: I independently interviewed and examined the patient and verified the perez history and physical, reviewed labs and image studies, discussed the case with the resident Dr. Barker and agree with the findings and care plan. Subjective no acute events overnight. Patient is only having minimal pain/soreness at the heel. He has been a type II diabetic for > 40 years; he said his last HbA1c was ~ 9, which was improved from previous check at 10. When asked when the last time is A1c was < 7, he could not recall. He has recently got an insulin pump, which he is hopeful will help bring down his sugar. He was a former smoker, but quit 15 years ago. Review of Systems Review of Systems: All systems reviewed & are unremarkable except as noted in HPI & below Physical Exam Constitutional: WD/WN, vitals as above cooperative; no acute distress Eyes: + anicteric sclerae ENMT: external ear and nose normal, oropharynx normal Neck: normal visual inspection and trachea midline Respiratory: normal respiratory effort, lungs clear to auscultation Cardiovascular: Rate/Rhythm: regular rate Heart Sounds: normal S1, normal S2 and + murmur (systolic ejection murmur ) Gastrointestinal (Abdomen): normal bowel sounds, soft, nontender, no hepatosplenomegaly Skin: + ulcer and + erythema Psychiatric: A+Ox3, euthymic affect Results & Data Results & Data ([facility]) Vital Signs (Past 12 Hours) Vital Signs Temp Pulse Resp BP Pulse Ox 01/14/21 07:45 37.0 C 70 19 138/74 97 01/14/21 03:42 36.8 C 77 18 176/81 H 100 Resident Activity Tracking Resident Involvement: Resident Care Provided Care Provided: Adult Hospital Medicine (1) Ischemic ulcer Non-pressure ulcer stage: with fat layer exposed Qualified Code(s): L98.492 - Non-pressure chronic ulcer of skin of other sites with fat layer exposed
[2021-01-14] MEDS: DAPTOmycin 275 MG in SYRINGE 0 ML IV SCH (17:22)
[2021-01-14] MEDS: ADVANCED PROBIOTIC 1250 MG CAPSULE PO SCH (19:05)
[2021-01-14] MEDS: ATORVASTATIN 40 MG TAB PO SCH (20:30)
[2021-01-15] MEDS: CEFEPIME 2,000 MG in SYRINGE 0 ML IV SCH ×3 (03:23→20:24)
[2021-01-15] MEDS: NSS + 20MEQ KCL 20 MEQ/1,000 ML BAG IV SCH (03:23)
[2021-01-15] MEDS: LEVOTHYROXINE SODIUM 175 MCG TABLET PO SCH (05:34)
[2021-01-15] MEDS: ASPIRIN 81 MG ECTAB PO SCH (08:19)
[2021-01-15] MEDS: CLOPIDOGREL BISULFATE 75 MG TAB PO SCH (08:19)
[2021-01-15] MEDS: ADVANCED PROBIOTIC 1250 MG CAPSULE PO SCH (08:19)
[2021-01-15] MEDS: CALCITRIOL 0.25 MCG CAPSULE PO SCH (08:19)
[2021-01-15] MEDS: CHLORTHALIDONE 25 MG TAB PO SCH (08:19)
[2021-01-15] MEDS: METOPROLOL TARTRATE 25 MG TAB PO SCH ×2 (08:20→20:25)
[2021-01-15] MEDS: POTASSIUM CHLORIDE CRTAB 20 MEQ TABCR PO SCH ×2 (08:20→17:10)
[2021-01-15] MEDS: GENTAMICIN SULFATE 0.1% CR 15 GM TUBE EXT SCH (08:20)
[2021-01-15] MEDS: NovoLOG INSULIN PUMP SCH ×4 (08:20→22:21)
[2021-01-15] MEDS: PANTOprazole 40 MG TAB PO SCH (08:20)
--- NOTE | 2021-01-15 09:11 | Consultation ---
Date of Consultation January 15, 2021 History of Present Illness Attending Physician: Merle Cole MD History of Present Illness No consult required. Patient was cancelled last week for a right fem pop bypass due to hypokalemia. Now admitted for worsening of his wound. Patient now on OR schedule for Monday. Will need IV antibiotics till then. Allergies Allergy/AdvReac Type Severity Reaction Status Date / Time No Known Allergies Allergy Unknown Verified 01/13/21 18:33 Home Medications Medication Instructions Recorded Confirmed Type aspirin 81 mg tablet,delayed 81 mg PO QAM tab 05/10/18 01/13/21 History release clopidogrel [Plavix] 1 tab PO QAM 11/09/18 01/13/21 History metoprolol tartrate 25 mg tablet 12.5 mg PO BID #90 tab 12/31/19 01/13/21 Rx pantoprazole 40 mg tablet,delayed 40 mg PO QAM #30 tab 04/27/20 01/13/21 Rx release calcitriol [Rocaltrol] 0.25 mcg PO QAM 06/17/20 01/13/21 History levothyroxine 175 mcg PO QAM 11/16/20 01/13/21 History acetaminophen [Tylenol Extra 1,000 mg PO Q6 PRN 11/18/20 01/13/21 History Strength] atorvastatin 80 mg tablet 80 mg PO HS #90 tab 11/25/20 01/13/21 Rx gentamicin 0.1 % topical ointment 1 applic TOPICAL ONCE 42 Days #30 g 11/25/20 01/13/21 Rx chlorthalidone 25 mg PO QAM 12/23/20 01/13/21 History oxycodone 5 mg PO TID PRN 12/23/20 01/13/21 History doxycycline hyclate 100 mg tablet 100 mg PO BID 14 Days #28 tab 01/04/21 01/13/21 Rx potassium chloride 20 meq PO BID 01/13/21 01/13/21 History insulin aspart U-100 100 unit/mL 60 unit SQ UD #20 ml 01/14/21 Rx subcutaneous solution Patient History Medical History Aortic stenosis s/p porcine valve replacement (2015) with CABG x 1 CAD (coronary artery disease) s/p CABG x 1 (2015) Chronic renal disease, stage 3, moderately decreased glomerular filtration rate (GFR) between 30-59 mL/min/1.[address] Lerner Diabetes mellitus type 1 Diabetic autonomic neuropathy associated with type 1 diabetes mellitus Diabetic nephropathy associated with type 1 diabetes mellitus Dyslipidemia GERD (gastroesophageal reflux disease) Hypertension Hypothyroidism Insulin pump in place Nephrolithiasis Osteoarthritis Osteoporosis PAD (peripheral artery disease) Proliferative diabetic retinopathy associated with type 1 diabetes mellitus PVD (peripheral vascular disease) s/p B/L iliac artery stents (2014), R common/external iliac (2017), R common femoral endarterectomy (11/2018) with bovine patch. Left femoral to PT composite bypass graft (06/2020) Surgical History H/O cataract extraction R/L H/O endarterectomy R common femoral (11/2018) History of ankle surgery Left ankle (hardware since removed) History of aortic valve replacement 2015 ([facility] [place] History of arterial bypass of lower extremity Left femoral to PT composite bypass graft (06/2020) History of cardiac cath 2015 > no stents (subsequent CABG with AVR in 2015) History of carpal tunnel release R/L History of colonoscopy History of coronary artery bypass graft CABG x1 + AVR (2015) History of esophagogastroduodenoscopy (EGD) History of myringotomy History of open reduction and internal fixation (ORIF) procedure LLE () History of skin graft Split Thickness Skin Graft of Left Lateral Ankle (11/18/20): LMA#5, atraumatic x1 at [facility] History of tonsillectomy History of tooth extraction History of umbilical hernia repair Hx of surgical procedure Left Leg Wound Debridement and Irrigation S/P femoropopliteal bypass surgery S/P insertion of iliac artery stent B/L iliac stent placement (2014) 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 Family History Brother Family history of diabetes mellitus Sister Family history of diabetes mellitus Mother Family history of diabetes mellitus Grandmother (Maternal) Family history of diabetes mellitus Uncle Family hx of colon cancer Colorectal cancer Father Family history of esophageal cancer Sister Family history of diabetes mellitus Other No family history of adverse response to anesthesia Denies family history of Ovarian cancer Prostate cancer Myocardial infarction Breast cancer Social History Smoking Status: Former smoker Tobacco Type: Cigarettes and Smokeless Tobacco (Dip or Chew) Cigarettes Per Day: QUIT 15 YEARS AGO. HX OF 2 PPD "WASTED A LOT"; Smoking End Date: 15 years ago; Second Hand Exposure: No; Hx Alcohol Use: Yes Alcohol type: beer Hx Substance Use: No Preferred Language: Malagasy Communication Ability: Effective Visual Impairment: No Limitations Hearing Ability: Normal Ch[place] Required: No Beliefs That Will Affect Care: None marital status: Current Living Situation: Other Current Living Situation Comment: lives with room mate How many Children do You have: 2 Other Information That Helps Us Care for You: No Feels Safe at Home: Yes Safety Concerns: Feels Safe At This Time Childhood Exposure to Second-Hand Smoke: Yes Diet Comment: Carb Counts. ([id number], roughly) caffeine: Yes (coffee, rarely ) during the past year weight has: remained stable Dental Care, Regularly: No Physical Activity Frequency: 1-2 Times per Week Seatbelt Use: always Sunscreen Use: No Assistive Devices: Walker Assistive Devices Comment: Myrna shoe for right foot. Cam Boot for left foot Results & Data ([facility]) Vital Signs (Past 12 Hours) Vital Signs Temp Pulse Resp BP BP Pulse Ox 01/15/21 08:00 36.6 C 72 16 125/72 97 01/14/21 23:15 36.9 C 76 18 128/78 96
[2021-01-15] MEDS: ENOXAPARIN INJ 30 MG/0.3 ML SYR SQ SCH ×2 (11:18→23:35)
--- NOTE | 2021-01-15 14:28 | Hospitalist Progress Note ---
Date of Service January 15, 2021 Assessment & Plan (1) Diabetic ulcer of right great toe: Patient is a very pleasant 65-year-old gentleman with a notable past medical history of type 1 diabetes complicated with multiple diabetic foot ulcers, peripheral arterial disease complicated by ischemic ulcers, chronic osteomyelitis, who was admitted for outpatient management of of R heel cellulitis around a preexisting ulcer and R great toe developing osteomyelitis. 1. Diabetic Ulcer of the Right Heel with Superimposed Cellulitis Clinically reporting increased erythema, discharge, and malodor in days [employer] Status post debridement in the wound care clinic on 01/13 WBC mildly elevated on admission, now normalized -Blood cultures pending - no growth to date; Wound culture showing pinpoint growth History of Pseudomonas and MRSA on previous wound cultures Continue cefepime and daptomycin Wound care consult; continue Santyl and gentamicin -vascular surgery consult placed given likely contribution in the development of and delayed healing of the cellulitis and osteomyelitis Dr. Eason has moved patient's surgery up to this coming Monday, will continue with medical management until then. 2. Peripheral Vascular Disease Status post angiogram of the right lower extremity on November 09 Was originally scheduled for femoral-popliteal bypass surgery of this leg, however due to hypokalemia, was postponed to the beginning of February Dr. Eason moved patient's surgery up to this coming Monday will continue IV antibiotics until then Continue aspirin, Plavix, statin 3. Diabetic ulcer of right great toe, concern for underlying osteomyelitis -Status post debridement in the wound care clinic 01/13 -X-rays obtained in the ER did show cortical changes, new from 09/16/2020, that are concerning for a mild, but developing osteomyelitis -CT right foot without contrast showing erosive change along the plantar and medial base of the first distal phalanx, suspicious for osteomyelitis. -patient does have a screw in this foot, and therefore is not a candidate for MRI General surgery following - awaiting input from vascular surgery before proceeding with surgical debridement -Antibiotics as above 4. Hypokalemia, Hypomagnesemia - Repleted - BMP qAM Chronic medical problems Hypertension: Continue metoprolol, chlorthalidone Type 1 diabetes: Patient has insulin pump. Can utilize for now. We will proceed with AC at bedtime blood sugar checks. If needed, can consider pausing insulin pump and temporarily utilizing subcutaneous insulin GERD: Continue pantoprazole Hypokalemia: Continue potassium chloride 20 mEq twice daily supplementation CKD 3: Avoid nephrotoxic meds Code: FULL CODE Diet: CC DM2 Dispo: Med/surg PPX: Lovenox (2) Atherosclerosis of [place] artery of lower extremity with ulceration of foot: (3) PVD (peripheral vascular disease): (4) Diabetic ulcer of ankle associated with type 1 diabetes mellitus: (5) Osteomyelitis due to type 1 diabetes mellitus: (6) Vitamin D deficiency: (7) Diabetic peripheral neuropathy associated with type 1 diabetes mellitus: (8) Diabetic ulcer of toe of right foot: (9) Diabetic ulcer of left heel: (10) Diabetic ulcer of right heel: (11) Status post partial amputation of foot: (12) Ischemic ulcer: (13) Peripheral arterial disease: (14) Chronic osteomyelitis of right foot: (15) Osteomyelitis of toe of right foot: (16) Nephrolithiasis: (17) Osteoporosis: (18) Chronic renal disease, stage 3, moderately decreased glomerular filtration rate (GFR) between 30-59 mL/min/1.73 square meter: (19) Diabetes type 1, controlled: (20) History of aortic valve replacement: (21) Aortic stenosis: (22) CAD (coronary artery disease): (23) Hypertension: (24) Hypothyroidism: Admission and Anticipated Discharge Date Admission Date: January 13, 2021 Supervising Physician Co-Signing Physician Notes Resident Physician Supervision Note: I independently interviewed and examined the patient and verified the perez history and physical, reviewed labs and image studies and agree with resident Dr. Garza findings and care plan. Subjective Mr. Chowdhury doing well today, no acute distress, no fevers no chills, no chest pain, no shortness of breath. He is anxious to have his procedure but has no new concerns. Review of Systems Review of Systems: All systems reviewed & are unremarkable except as noted in Subjective Physical Exam Constitutional: WD/WN, vitals as above cooperative; no acute distress Eyes: + anicteric sclerae ENMT: external ear and nose normal, oropharynx normal Neck: normal visual inspection and trachea midline Respiratory: normal respiratory effort, lungs clear to auscultation Cardiovascular: Rate/Rhythm: regular rate Heart Sounds: normal S1, normal S2 and + murmur (systolic ejection murmur ) Gastrointestinal (Abdomen): normal bowel sounds, soft, nontender, no hepatosplenomegaly Skin: Bilateral lower limb wounds bandaged, no redness or swelling outside of bandage Psychiatric: A+Ox3, euthymic affect Results & Data Results & Data ([facility]) Vital Signs (Past 12 Hours) Vital Signs Temp Pulse Resp BP Pulse Ox 01/15/21 08:00 36.6 C 72 16 125/72 97 Resident Activity Tracking Resident Involvement: Resident Care Provided Care Provided: Adult Hospital Medicine (1) Ischemic ulcer Non-pressure ulcer stage: with fat layer exposed Qualified Code(s): L98.492 - Non-pressure chronic ulcer of skin of other sites with fat layer exposed
[2021-01-15] MEDS: DAPTOmycin 275 MG in SYRINGE 0 ML IV SCH (18:05)
[2021-01-15] MEDS: ATORVASTATIN 40 MG TAB PO SCH (20:24)
[2021-01-16] MEDS: CEFEPIME 2,000 MG in SYRINGE 0 ML IV SCH ×3 (04:59→22:17)
[2021-01-16] MEDS: LEVOTHYROXINE SODIUM 175 MCG TABLET PO SCH (05:00)
[2021-01-16 08:25] LABS: Est GFR (Non-African American) 93.2
[2021-01-16] MEDS: METOPROLOL TARTRATE 25 MG TAB PO SCH ×2 (09:01→22:17)
[2021-01-16] MEDS: POTASSIUM CHLORIDE CRTAB 20 MEQ TABCR PO SCH ×2 (09:01→17:46)
[2021-01-16] MEDS: CHLORTHALIDONE 25 MG TAB PO SCH (09:01)
[2021-01-16] MEDS: CALCITRIOL 0.25 MCG CAPSULE PO SCH (09:02)
[2021-01-16] MEDS: ADVANCED PROBIOTIC 1250 MG CAPSULE PO SCH (09:02)
[2021-01-16] MEDS: PANTOprazole 40 MG TAB PO SCH (09:02)
[2021-01-16] MEDS: NovoLOG INSULIN PUMP SCH ×4 (09:13→22:13)
[2021-01-16] MEDS: GENTAMICIN SULFATE 0.1% CR 15 GM TUBE EXT SCH (09:14)
--- NOTE | 2021-01-16 10:11 | Hospitalist Progress Note ---
Date of Service January 16, 2021 Assessment & Plan (1) Diabetic ulcer of right great toe: Patient is a very pleasant 65-year-old gentleman with a notable past medical history of type 1 diabetes complicated with multiple diabetic foot ulcers, peripheral arterial disease complicated by ischemic ulcers, chronic osteomyelitis, who was admitted for outpatient management of of R heel cellulitis around a preexisting ulcer and R great toe developing osteomyelitis. 1. 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 Eason has schedule surgery for Monday, will continue with medical management until then. 2. Peripheral Vascular Disease Status post angiogram of the right lower extremity on November 09 Was originally scheduled for femoral-popliteal bypass surgery of this leg, however due to hypokalemia, was postponed to the beginning of February Dr. Eason moved patient's surgery up to this coming Monday will continue IV antibiotics until then Continue aspirin, Plavix, statin 3. Diabetic ulcer of right great toe, concern for underlying osteomyelitis -Status post debridement in the wound care clinic 01/13 -X-rays obtained in the ER did show cortical changes, new from 09/16/2020, that are concerning for a mild, but developing osteomyelitis -CT right foot without contrast showing erosive change along the plantar and med ial base of the first distal phalanx, suspicious for osteomyelitis. -patient does have a screw in this foot, and therefore is not a candidate for MRI General surgery following - awaiting input from vascular surgery before proceeding with surgical debridement -Antibiotics as above 4. Hypokalemia, Hypomagnesemia - Repleted - BMP qAM 5. Type 1 diabetes - Patient has insulin pump. Can utilize for now. - We will proceed with AC at bedtime blood sugar checks. - If needed, can consider pausing insulin pump and temporarily utilizing subcutaneous insulin Chronic medical problems Hypertension: Continue metoprolol, chlorthalidone GERD: Continue pantoprazole Hypokalemia: Continue potassium chloride 20 mEq twice daily supplementation CKD 3: Avoid nephrotoxic meds Code: FULL CODE Diet: CC DM2 Dispo: Med/surg PPX: Lovenox (2) Atherosclerosis of [place] artery of lower extremity with ulceration of foot: (3) PVD (peripheral vascular disease): (4) Diabetic ulcer of ankle associated with type 1 diabetes mellitus: (5) Osteomyelitis due to type 1 diabetes mellitus: (6) Vitamin D deficiency: (7) Diabetic peripheral neuropathy associated with type 1 diabetes mellitus: (8) Diabetic ulcer of toe of right foot: (9) Diabetic ulcer of left heel: (10) Diabetic ulcer of right heel: (11) Status post partial amputation of foot: (12) Ischemic ulcer: (13) Peripheral arterial disease: (14) Chronic osteomyelitis of right foot: (15) Osteomyelitis of toe of right foot: (16) Nephrolithiasis: (17) Osteoporosis: (18) Chronic renal disease, stage 3, moderately decreased glomerular filtration rate (GFR) between 30-59 mL/min/1.73 square meter: (19) Diabetes type 1, controlled: (20) History of aortic valve replacement: (21) Aortic stenosis: (22) CAD (coronary artery disease): (23) Hypertension: (24) Hypothyroidism: Admission and Anticipated Discharge Date Admission Date: January 13, 2021 Supervising Physician Co-Signing Physician Notes Resident Physician Supervision Note: I independently interviewed and examined the patient and verified the perez history and physical, reviewed labs and image studies and agree with resident Dr. Morton findings and care plan. Subjective No acute complaints. No chest pain, no shortness of breath, no nausea, no diarrhea. Understands that will be here throughout the weekend. Physical Exam Constitutional: WD/WN, vitals as above cooperative and comfortable Eyes: PERRL, conjunctivae normal, anicteric sclerae ENMT: external ear and nose normal, oropharynx normal Neck: normal visual inspection and trachea midline Respiratory: no respiratory distress and does not use accessory muscles Cardiovascular: Rate/Rhythm: regular rate Musculoskeletal: Head/Neck/Chest: normocephalic and head atraumatic Skin: ERIC wrap to LLE without appearance of any erythema or signs of infection to foot. Neurologic: moves all extremities and awake Psychiatric: A+Ox3, euthymic affect Results & Data Results & Data ([facility]) Vital Signs (Past 12 Hours) Vital Signs Temp Pulse Resp BP Pulse Ox 01/16/21 08:03 36.9 C 67 18 151/87 H 98 01/15/21 23:13 37 C 70 16 147/78 H 98 Laboratory Results Laboratory Results - last 24 hr 01/15/21 01/15/21 01/15/21 12:23 16:50 20:18 Creatinine Est Cr Clr Drug Dosing Est GFR ( Amer) Est GFR (Non-Af Amer) POC Glucose 200 H 213 H 59 L* 01/15/21 01/15/21 01/16/21 20:21 20:45 07:34 Creatinine 0.84 Est Cr Clr Drug Dosing 96.0 Est GFR ( Amer) 108.0 Est GFR (Non-Af Amer) 93.2 POC Glucose 58 L* 83 01/16/21 08:13 Creatinine Est Cr Clr Drug Dosing Est GFR ( Amer) Est GFR (Non-Af Amer) POC Glucose 138 H Medications Administered Aspirin (Aspirin 81 Mg Ectab) 81 mg PO [facility] Stop: 02/13/21 08:59 Last Admin: 01/15/21 08:19 Dose: 81 mg Documented by: [id number] Admin: 01/14/21 11:21 Dose: 81 mg Documented by: [id number] Atorvastatin Calcium (Atorvastatin 40 Mg Tab) 80 mg PO [facility] Stop: 02/12/21 22:44 Last Admin: 01/15/21 20:24 Dose: 80 mg Documented by: [id number] Admin: 01/14/21 20:30 Dose: 80 mg Documented by: [id number] Admin: 01/13/21 23:33 Dose: 80 mg Documented by: [id number] Calcitriol (Calcitriol 0.25 Mcg Capsule) 0.25 mcg PO [facility] Stop: 02/13/21 08:59 Last Admin: 01/16/21 09:02 Dose: 0.25 mcg Documented by: [id number] Admin: 01/15/21 08:19 Dose: 0.25 mcg Documented by: [id number] Admin: 01/14/21 11:20 Dose: 0.25 mcg Documented by: [id number] Chlorthalidone (Chlorthalidone 25 Mg Tab) 25 mg PO [facility] Stop: 02/13/21 08:59 Last Admin: 01/16/21 09:01 Dose: 25 mg Documented by: [id number] Admin: 01/15/21 08:19 Dose: 25 mg Documented by: [id number] Admin: 01/14/21 11:21 Dose: 25 mg Documented by: [id number] Clopidogrel Bisulfate (Clopidogrel Bisulfate 75 Mg Tab) 75 mg PO QAM [facility] Stop: 02/13/21 08:59 Last Admin: 01/15/21 08:19 Dose: 75 mg Documented by: [id number] Admin: 01/14/21 11:20 Dose: 75 mg Documented by: [id number] Enoxaparin Sodium (Enoxaparin Inj 30 Mg/0.3 Ml Syr) 30 mg SQ Q12H [facility] Stop: 02/12/21 22:59 Last Admin: 01/15/21 23:35 Dose: 30 mg Documented by: [id number] Admin: 01/15/21 11:18 Dose: 30 mg Documented by: [id number] Admin: 01/14/21 20:29 Dose: 30 mg Documented by: [id number] Admin: 01/14/21 11:21 Dose: 30 mg Documented by: [id number] Admin: 01/13/21 23:31 Dose: 30 mg Documented by: [id number] Gentamicin Sulfate (Gentamicin Sulfate 0.1% Cr 15 Gm Tube) 1 appln EXT DAILY [facility] Stop: 01/24/21 08:59 Last Admin: 01/16/21 09:14 Dose: Not Given Documented by: [id number] Admin: 01/15/21 08:20 Dose: 1 appln Documented by: [id number] Admin: 01/14/21 10:00 Dose: 1 appln Documented by: [id number] Cefepime HCl 2,000 mg/ Syringe 20 mls @ 5 mls/min IV Q8H [facility]; Protocol Stop: 01/21/21 03:59 Last Admin: 01/16/21 04:59 Dose: 5 mls/min Documented by: [id number] Admin: 01/15/21 20:24 Dose: 5 mls/min Documented by: [id number] Admin: 01/15/21 11:18 Dose: 5 mls/min Documented by: [id number] Admin: 01/15/21 03:23 Dose: 5 mls/min Documented by: [id number] Admin: 01/14/21 20:29 Dose: 5 mls/min Documented by: [id number] Admin: 01/14/21 11:26 Dose: 5 mls/min Documented by: [id number] Admin: 01/14/21 03:46 Dose: 5 mls/min Documented by: [id number] Daptomycin 275 mg/ Syringe 5.5 mls @ 2.75 mls/min IV Q24H [facility]; Protocol Stop: 01/21/21 17:59 Last Admin: 01/15/21 18:05 Dose: 2.75 mls/min Documented by: [id number] Admin: 01/14/21 17:22 Dose: 2.75 mls/min Documented by: [id number] Insulin Aspart (Novolog Insulin Pump) 1 ea N/A ACHS [facility] Stop: 02/13/21 07:29 Last Admin: 01/16/21 09:13 Dose: 1 ea Documented by: [id number] Admin: 01/15/21 22:21 Dose: Not Given Documented by: [id number] Cosigned by: [id number] Admin: 01/15/21 18:05 Dose: 1 ea Documented by: [id number] Admin: 01/15/21 13:13 Dose: 1 ea Documented by: [id number] Admin: 01/15/21 08:20 Dose: 1 ea Documented by: [id number] Admin: 01/14/21 20:29 Dose: 1 ea Documented by: [id number] Admin: 01/14/21 17:26 Dose: 1 ea Documented by: [id number] Admin: 01/14/21 12:34 Dose: Not Given Documented by: [id number] Admin: 01/14/21 09:09 Dose: 1 ea Documented by: [id number] Lactobacillus Acidoph/Casei/Rhamnos (Advanced Probiotic 1250 Mg Capsule) 2 cap PO DAILY [facility] Stop: 02/13/21 17:51 Last Admin: 01/16/21 09:02 Dose: 2 cap Documented by: [id number] Admin: 01/15/21 08:19 Dose: 2 cap Documented by: [id number] Admin: 01/14/21 19:05 Dose: 2 cap Documented by: [id number] Levothyroxine Sodium ([facility]othyroxine S[facility] 175 Mcg Tablet) [facility]: 02/13/21 06:29 Last Admin: 01/16/21 05:00 Dose: 175 mcg Documented by: [id number] Admin: 01/15/21 05:34 Dose: 175 mcg Documented by: [id number] Admin: 01/14/21 03:46 Dose: 175 mcg Documented by: [id number] Metoprolol Tartrate (Metoprolol Tartrate 25 Mg Tab) 12.5 mg PO BID [facility] Stop: 02/12/21 22:44 Last Admin: 01/16/21 09:01 Dose: 12.5 mg Documented by: [id number] Admin: 01/15/21 20:25 Dose: 12.5 mg Documented by: [id number] Admin: 01/15/21 08:20 Dose: 12.5 mg Documented by: [id number] Admin: 01/14/21 20:30 Dose: 12.5 mg Documented by: [id number] Admin: 01/14/21 11:20 Dose: 12.5 mg Documented by: [id number] Admin: 01/13/21 23:33 Dose: 12.5 mg Documented by: [id number] Miscellaneous (Carbohydrates For Hypoglycemia ) 15 - 30 gm PO UD PRN PRN Reason: Hypoglycemia Treatment Stop: 02/12/21 23:44 Last Admin: 01/15/21 20:28 Dose: 15 gm Documented by: [id number] Pantoprazole Sodium (Pantoprazole 40 Mg Tab) 40 mg PO QAM [facility] Stop: 02/13/21 08:59 Last Admin: 01/16/21 09:02 Dose: 40 mg Documented by: [id number] Admin: 01/15/21 08:20 Dose: 40 mg Documented by: [id number] Admin: 01/14/21 11:21 Dose: 40 mg Documented by: [id number] Potassium Chloride (Potassium Chloride Crtab 20 Meq Tabcr) 20 meq PO [id number] [facility] Stop: 02/12/21 22:44 Last Admin: 01/16/21 09:01 Dose: 20 meq Documented by: [id number] Admin: 01/15/21 17:10 Dose: 20 meq Documented by: [id number] Admin: 01/15/21 08:20 Dose: 20 meq Documented by: [id number] Admin: 01/14/21 18:26 Dose: 20 meq Documented by: [id number] Admin: 01/14/21 09:24 Dose: 20 meq Documented by: [id number] Admin: 01/13/21 23:32 Dose: 20 meq Documented by: [id number] Resident Activity Tracking Resident Involvement: Resident Care Provided Care Provided: Adult Hospital Medicine (1) Ischemic ulcer Non-pressure ulcer stage: with fat layer exposed Qualified Code(s): L98.492 - Non-pressure chronic ulcer of skin of other sites with fat layer exposed
[2021-01-16] MEDS: ENOXAPARIN INJ 30 MG/0.3 ML SYR SQ SCH ×2 (10:59→22:18)
[2021-01-16] MEDS: DAPTOmycin 275 MG in SYRINGE 0 ML IV SCH (17:47)
[2021-01-16] MEDS: ATORVASTATIN 40 MG TAB PO SCH (22:17)
[2021-01-17] MEDS: CEFEPIME 2,000 MG in SYRINGE 0 ML IV SCH ×4 (05:13→20:48)
[2021-01-17] MEDS: LEVOTHYROXINE SODIUM 175 MCG TABLET PO SCH (05:15)
--- NOTE | 2021-01-17 07:07 | Hospitalist Progress Note ---
Date of Service January 17, 2021 Assessment & Plan (1) Diabetic ulcer of right great toe: Patient is a very pleasant 65-year-old gentleman with a notable past medical history of type 1 diabetes complicated with multiple diabetic foot ulcers, peripheral arterial disease complicated by ischemic ulcers, chronic osteomyelitis, who was admitted for outpatient management of of R heel cellulitis around a preexisting ulcer and R great toe developing osteomyelitis. 1. Diabetic Ulcer of the Right Heel with Superimposed Cellulitis Clinically reporting increased erythema, discharge, and malodor in days [facility] Status post debridement in the wound care clinic on 01/13 WBC mildly elevated on admission, now normalized -Blood cultures pending - no growth to date; Wound culture showing pinpoint growth History of Pseudomonas and MRSA on previous wound cultures Continue cefepime and daptomycin Wound care consult; continue Santyl and gentamicin -vascular surgery consult placed given likely contribution in the development of and delayed healing of the cellulitis and osteomyelitis Dr. Eason has schedule surgery for Monday, will continue with medical management until then. 2. Peripheral Vascular Disease Status post angiogram of the right lower extremity on November 09 Was originally scheduled for femoral-popliteal bypass surgery of this leg, however due to hypokalemia, was postponed to the beginning of February Dr. Eason moved patient's surgery up to this coming Monday will continue IV antibiotics until then Continue aspirin, Plavix, statin 3. Diabetic ulcer of right great toe, concern for underlying osteomyelitis -Status post debridement in the wound care clinic 01/13 -X-rays obtained in the ER did show cortical changes, new from 09/16/2020, that are concerning for a mild, but developing osteomyelitis -CT right foot without contrast showing erosive change along the plantar and med ial base of the first distal phalanx, suspicious for osteomyelitis. -patient does have a screw in this foot, and therefore is not a candidate for MRI General surgery following - awaiting input from vascular surgery before proceeding with surgical debridement -Antibiotics as above 4. Hypokalemia, Hypomagnesemia - Repleted - BMP qAM 5. Type 1 diabetes - Patient has insulin pump. Can utilize for now. - We will proceed with AC at bedtime blood sugar checks. - If needed, can consider pausing insulin pump and temporarily utilizing subcutaneous insulin Chronic medical problems Hypertension: Continue metoprolol, chlorthalidone GERD: Continue pantoprazole Hypokalemia: Continue potassium chloride 20 mEq twice daily supplementation CKD 3: Avoid nephrotoxic meds Code: FULL CODE Diet: CC DM2 Dispo: Med/surg PPX: Lovenox (2) Atherosclerosis of [place] artery of lower extremity with ulceration of foot: (3) PVD (peripheral vascular disease): (4) Diabetic ulcer of ankle associated with type 1 diabetes mellitus: (5) Osteomyelitis due to type 1 diabetes mellitus: (6) Vitamin D deficiency: (7) Diabetic peripheral neuropathy associated with type 1 diabetes mellitus: (8) Diabetic ulcer of toe of right foot: (9) Diabetic ulcer of left heel: (10) Diabetic ulcer of right heel: (11) Status post partial amputation of foot: (12) Ischemic ulcer: (13) Peripheral arterial disease: (14) Chronic osteomyelitis of right foot: (15) Osteomyelitis of toe of right foot: (16) Nephrolithiasis: (17) Osteoporosis: (18) Chronic renal disease, stage 3, moderately decreased glomerular filtration rate (GFR) between 30-59 mL/min/1.73 square meter: (19) Diabetes type 1, controlled: (20) History of aortic valve replacement: (21) Aortic stenosis: (22) CAD (coronary artery disease): (23) Hypertension: (24) Hypothyroidism: Admission and Anticipated Discharge Date Admission Date: January 13, 2021 Supervising Physician Co-Signing Physician Notes Resident Physician Supervision Note: I independently interviewed and examined the patient and verified the perez history and physical, reviewed labs and image studies and agree with resident Dr. Morton findings and care plan. Subjective No acute complaints. No chest pain, no shortness of breath, no nausea, no diarrhea. Understands that will be here throughout the weekend. Physical Exam Constitutional: WD/WN, vitals as above cooperative and comfortable Eyes: PERRL, conjunctivae normal, anicteric sclerae ENMT: external ear and nose normal, oropharynx normal Neck: normal visual inspection and trachea midline Respiratory: no respiratory distress and does not use accessory muscles Cardiovascular: Rate/Rhythm: regular rate Musculoskeletal: Head/Neck/Chest: normocephalic and head atraumatic Neurologic: moves all extremities and awake Psychiatric: A+Ox3, euthymic affect Results & Data Results & Data ([facility]) Vital Signs (Past 12 Hours) Vital Signs Temp Pulse Resp BP Pulse Ox 01/17/21 00:04 36.5 C 84 18 137/83 98 Resident Activity Tracking Resident Involvement: Resident Care Provided Care Provided: Adult Hospital Medicine (1) Ischemic ulcer Non-pressure ulcer stage: with fat layer exposed Qualified Code(s): L98.492 - Non-pressure chronic ulcer of skin of other sites with fat layer exposed
[2021-01-17] MEDS: GENTAMICIN SULFATE 0.1% CR 15 GM TUBE EXT SCH (09:17)
[2021-01-17] MEDS: PANTOprazole 40 MG TAB PO SCH (09:17)
[2021-01-17] MEDS: CHLORTHALIDONE 25 MG TAB PO SCH (09:17)
[2021-01-17] MEDS: METOPROLOL TARTRATE 25 MG TAB PO SCH ×2 (09:18→20:45)
[2021-01-17] MEDS: ADVANCED PROBIOTIC 1250 MG CAPSULE PO SCH (09:18)
[2021-01-17] MEDS: CALCITRIOL 0.25 MCG CAPSULE PO SCH (09:18)
[2021-01-17] MEDS: POTASSIUM CHLORIDE CRTAB 20 MEQ TABCR PO SCH ×2 (09:18→17:47)
[2021-01-17] MEDS: NovoLOG INSULIN PUMP SCH ×4 (09:19→22:20)
[2021-01-17] MEDS: ENOXAPARIN INJ 30 MG/0.3 ML SYR SQ SCH (11:41)
[2021-01-17] MEDS: DAPTOmycin 275 MG in SYRINGE 0 ML IV SCH (17:47)
[2021-01-17] MEDS: ATORVASTATIN 40 MG TAB PO SCH (20:45)
[2021-01-18] MEDS: ENOXAPARIN INJ 30 MG/0.3 ML SYR SQ SCH ×3 (00:11→22:40)
[2021-01-18] MEDS: CEFEPIME 2,000 MG in SYRINGE 0 ML IV SCH ×3 (04:44→20:24)
[2021-01-18] MEDS: LEVOTHYROXINE SODIUM 175 MCG TABLET PO SCH (05:58)
[2021-01-18 06:56] LABS: Creatinine Clr Calc Pharmacy 87.7 ml/min; Est GFR (African American) 102.2; Est GFR (Non-African American) 88.2
[2021-01-18] MEDS: ADVANCED PROBIOTIC 1250 MG CAPSULE PO SCH (07:40)
[2021-01-18] MEDS: GENTAMICIN SULFATE 0.1% CR 15 GM TUBE EXT SCH (07:40)
[2021-01-18] MEDS: METOPROLOL TARTRATE 25 MG TAB PO SCH ×2 (07:40→20:25)
[2021-01-18] MEDS: CHLORTHALIDONE 25 MG TAB PO SCH (07:41)
[2021-01-18] MEDS: PANTOprazole 40 MG TAB PO SCH (07:41)
[2021-01-18] MEDS: POTASSIUM CHLORIDE CRTAB 20 MEQ TABCR PO SCH ×2 (07:41→18:02)
[2021-01-18] MEDS: CALCITRIOL 0.25 MCG CAPSULE PO SCH (07:41)
--- NOTE | 2021-01-18 09:03 | Medical Student Progress Note ---
Date of Service January 18, 2021 Assessment & Plan Admission and Anticipated Discharge Date Admission Date: January 13, 2021 1. Diabetic Ulcer of the Right Heel with Superimposed Cellulitis -Blood cultures negative History of Pseudomonas and MRSA on previous wound cultures Continue cefepime and daptomycin Wound care continue Santyl and gentamicin - Revascularization Monday 2. Peripheral Vascular Disease Status post angiogram of the right lower extremity on November 09 Was originally scheduled for femoral-popliteal bypass surgery of this leg, however due to hypokalemia, was postponed to the beginning of February Dr. Eaosn moved patient's surgery up to Monday will continue IV antibiotics until then Continue statin - Aspirin and plavix held since Monday prior to procedure 3. Diabetic ulcer of right great toe, concern for underlying osteomyelitis -Status post debridement in the wound care clinic 01/13 -X-rays obtained in the ER show cortical changes are concerning for a mild, but developing osteomyelitis -CT right foot without contrast showing erosive change along the plantar and medial base of the first distal phalanx, suspicious for osteomyelitis -patient does have a screw in this foot, and therefore is not a candidate for MRI General surgery following - awaiting input from vascular surgery before proceeding with surgical debridement -Antibiotics as above 4. Hypokalemia, Hypomagnesemia - Repleted from 2.4 to 3.2, continue potassium chloride 5. Type 1 diabetes - Patient using his own insulin pump. - We will proceed with AC at bedtime blood sugar checks. - If needed, can consider pausing insulin pump and temporarily utilizing subcutaneous insulin Chronic medical problems Hypertension: Continue metoprolol, chlorthalidone GERD: Continue pantoprazole Hypokalemia: Continue potassium chloride 20 mEq twice daily supplementation CKD 3: Avoid nephrotoxic meds Code: FULL CODE Diet: CC DM2 Dispo: Med/surg PPX: Lovenox Supervising Attestation I personally examined the patient and verified all perez points of history and exam, discussed case, and agree with decision making with Taiwo Prado, MS2 Feeling okay overall. No significant pain in foot, although he does not have much sensation there. He relates with his glycemic control that he tries to carb count and match his insulin to the carbs that he is eating, but does not really follow postprandial glucoses to see how well he did. After we discussed this in detail he starts to express a good understanding of it. Vitals noted, in general he is awake and alert pleasant no distress. HEENT normocephalic atraumatic mucous membranes moist. Breathing unlabored no accessory muscle use good effort. Skin shows no rashes no pallor or icterus. Heel is moderately tender, dressed, no tracking erythema. Toe without any tenderness, although markedly diminished sensation. Diabetic/vascular insufficiency ulcer/foot infection/osteomyelitiscontinue cefepime and daptomycin for now, hopefully will improve some with revascularization, but I discussed with the patient frankly I do harbor grave concerns about the status of his foot, given the longstanding ulcer and diffuse areas of osteomyelitis. Given that he is not septic or having progressive infection, it is certainly quite reasonable to try the current approach. Continue current care. Uncontrolled type 1 diabeteseducated extensively on "why to care" ("high sugars clog arteries"), and how to utilize postprandial glucose monitoring to "grade his work" as far as insulincarb matching. Otherwise as above, anticipate revascularization tomorrow. Jose Velasquez is a 65 year old male on hospital day 6 on referral from the wound clinic for a right heel ulcer that developed into cellulitis and osteomyelitis with vancomycin-resistant enterococcus (VRE). He has a pertinent PMH of type I diabetes, peripheral vascular disease. In the ED on 01/13 he presented with a right heel wound that he had noticed some odor from. Noted was also eschar and erythema. He notes he felt warm but was afebrile in the ED. Wound care treatment before presentation was oral doxycycline and topical gentamicin. He had wounds on the right 1st and 5th toe. He had been previously postponed for a right leg revascularization due hypokalemia but is scheduled for this procedure tomorrow. History of wounds on the left foot had significantly improved following that revascularization. Upon presentation he had also been experiencing intermittent nausea which has improved. He is not experiencing fevers, chills, n/v, abdominal pain, diarrhea, [place], lightheadedness, blurred vision, or LOC. He feels well but has some pain in the right heel when walking. Had in-depth discussion with patient discussing his diabetes management. Review of Systems Review of Systems: All systems reviewed & are unremarkable except as noted in HPI & below Physical Exam Constitutional: WD/WN, vitals as above Eyes: PERRL, conjunctivae normal, anicteric sclerae Neck: trachea midline, no thyromegaly Respiratory: normal respiratory effort, lungs clear to auscultation Cardiovascular: RRR, no murmur, no edema No carotid bruit, radial pulses intact, left leg popliteal pulse, tibial pulses unable to check due to wraps, dorsalis pedis pulses difficult to appreciate Gastrointestinal (Abdomen): normal bowel sounds, soft, nontender, no hepatosplenomegaly Musculoskeletal: no cyanosis or clubbing, extremities motor strength 5/5 Right toes and heel wrapped, left heel wrapped, No surrounding erythema Psychiatric: A+Ox3, euthymic affect Lymphatic: no cervical or axillary lymphadenopathy Results & Data ([facility]) Vital Signs (Past 12 Hours) Vital Signs Temp Pulse Resp BP BP Pulse Ox 01/18/21 07:25 36.5 C 75 18 156/78 H 97 01/17/21 23:05 36.8 C 78 17 132/79 98
[2021-01-18] MEDS: NovoLOG INSULIN PUMP SCH ×4 (09:23→21:20)
[2021-01-18] MEDS: DAPTOmycin 675 MG in SYRINGE 0 ML IV SCH (11:05)
--- NOTE | 2021-01-18 12:29 | Consultation ---
Date of Consultation January 18, 2021 History of Present Illness Attending Physician: Robert Crews DO History of Present Illness January 07, 2021 Assessment & Plan (1) Atherosclerosis of [place] artery of lower extremity with ulceration of foot: Patient is admitted for a prosthetic right lower extremity fem pop bypass. I have discussed the risks options and benefits of the procedure with the patient. The patient understands the risks options and benefits and agrees to the procedure. History of Present Illness Chief Complaint: Non healing ulcers right foot Primary Care Provider: Enio Richards MD Mr. Chowdhury is a middle-aged patient with a history of peripheral arterial disease, having undergone a left leg femoral to posterior tibial artery in situ and composite bypass graft in June 2020, due to nonhealing wounds and necrosis of his left ankle. Patient states that his surgical wounds have completely healed since his last visit here in August, and that his heel wound is also healed. He states that his left lateral leg wound has improved to the point that the wound clinic feels he may benefit from a skin graft to this area. He is very pleased with his results in the left leg. Unfortunately he continues to have necrotic wounds of the right heel and great toe, which have taken a turn for the worse in the past month or so, and patient states that he is currently under treatment for osteomyelitis in his right heel. Arteriography showed right superficial and popliteal artery occlusions. Endovascular intervention could not be done. Bypass was recommended. Allergies Allergy/AdvReac Type Severity Reaction Status Date / Time No Known Allergies Allergy Unknown Verified 01/06/21 09:27 Home Medications Medication Instructions Recorded Confirmed Type aspirin 81 mg tablet,delayed 81 mg PO QAM tab 05/10/18 01/06/21 History release clopidogrel [Plavix] 1 tab PO QAM 11/09/18 01/06/21 History metoprolol tartrate 25 mg tablet 12.5 mg PO BID #90 tab 12/31/19 01/06/21 Rx insulin aspart U-100 100 unit/mL 60 units SQ UD ml 04/14/20 01/06/21 History subcutaneous solution insulin syringe-needle U-100 0.5 #10 ea 04/14/20 01/06/21 History mL 30 gauge x 5/16" pantoprazole 40 mg tablet,delayed 40 mg PO QAM #30 tab 04/27/20 01/06/21 Rx release calcitriol [Rocaltrol] 0.25 mcg PO QAM 06/17/20 01/06/21 History levothyroxine 175 mcg PO QAM 11/16/20 01/06/21 History potassium chloride 10 meq PO BID 11/16/20 01/06/21 History acetaminophen [Tylenol Extra 1,000 mg PO Q6 PRN 11/18/20 01/06/21 History Strength] atorvastatin 80 mg tablet 80 mg PO HS #90 tab 11/25/20 01/06/21 Rx gentamicin 0.1 % topical ointment 1 applic TOPICAL ONCE 42 Days #30 g 11/25/20 12/30/20 Rx chlorthalidone 25 mg PO QAM 12/23/20 01/06/21 History oxycodone 5 mg PO TID PRN 12/23/20 01/06/21 History doxycycline hyclate 100 mg tablet 100 mg PO BID 14 Days #28 tab 01/04/21 01/06/21 Rx Past Med/Surg History Medical History Aortic stenosis s/p porcine valve replacement (2015) with CABG x 1 CAD (coronary artery disease) s/p CABG x 1 (2015) Chronic renal disease, stage 3, moderately decreased glomerular filtration rate (GFR) between 30-59 mL/min/1.[address] Lerner Diabetes mellitus type 1 Diabetic autonomic neuropathy associated with type 1 diabetes mellitus Diabetic nephropathy associated with type 1 diabetes mellitus Dyslipidemia GERD (gastroesophageal reflux disease) Hypertension Hypothyroidism Insulin pump in place Nephrolithiasis Osteoarthritis Osteoporosis PAD (peripheral artery disease) Proliferative diabetic retinopathy associated with type 1 diabetes mellitus PVD (peripheral vascular disease) s/p B/L iliac artery stents (2014), R common/external iliac (2017), R common femoral endarterectomy (11/2018) with bovine patch. Left femoral to PT composite bypass graft (06/2020) Surgical History H/O cataract extraction R/L H/O endarterectomy R common femoral (11/2018) History of ankle surgery Left ankle (hardware since removed) History of aortic valve replacement 2016 ([facility] History of arterial bypass of lower extremity Left femoral to PT composite bypass graft (06/2020) History of cardiac cath 2016 > no stents (subsequent CABG with AVR in 2015) History of carpal tunnel release R/L History of colonoscopy History of coronary artery bypass graft CABG x1 + AVR (2015) History of esophagogastroduodenoscopy (EGD) History of myringotomy History of open reduction and internal fixation (ORIF) procedure LLE () History of skin graft Split Thickness Skin Graft of Left Lateral Ankle (11/18/20): LMA#5, atraumatic x1 at [facility] History of tonsillectomy History of tooth extraction History of umbilical hernia repair Hx of surgical procedure Left Leg Wound Debridement and Irrigation S/P femoropopliteal bypass surgery S/P insertion of iliac artery stent B/L iliac stent placement (2014) 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 Family History Brother Family history of diabetes mellitus Sister Family history of diabetes mellitus Mother Family history of diabetes mellitus Grandmother (Maternal) Family history of diabetes mellitus Uncle Family hx of colon cancer Colorectal cancer Father Family history of esophageal cancer Sister Family history of diabetes mellitus Other No family history of adverse response to anesthesia Denies family history of Ovarian cancer Prostate cancer Myocardial infarction Breast cancer Social History Smoking Status: Former smoker Tobacco Type: Cigarettes and Smokeless Tobacco (Dip or Chew) Cigarettes Per Day: QUIT 15 YEARS AGO. 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 (8616-6914, roughly) caffeine: Yes (coffee, rarely ) during the past year weight has: remained stable Dental Care, Regularly: No Physical Activity Frequency: 1-2 Times per Week Seatbelt Use: always Sunscreen Use: No Assistive Devices: Denture - Upper, Glasses and Walker Review of Systems All systems reviewed & are unremarkable except as noted in HPI & below Physical Exam Physical Exam: Constitutional: In general patient is a healthy-appearing well- nourished well-developed middle-aged male no distress. He is in a wheelchair due to his multiple wounds and offloading. His femoral pulses are +3 on the left, +1 on the right. Distal pulses are nonpalpable bilaterally. His left bypass graft does have a palpable pulse. His left toes have brisk capillary refill and no sign of distal ischemia. His left heel wound is completely healed and is no longer open. Wound left lateral leg demonstrates a shallow wound, with excellent granulation in the center and improved skin growth at the edges. His right heel demonstrates a large necrotic eschar, as well as warmth and erythema to the right great toe and a deep wound there as well. Respiratory: normal respiratory effort, lungs clear to auscultation Cardiovascular: RRR, no murmur, no edema Gastrointestinal (Abdomen): normal bowel sounds, soft, nontender, no hepatosplenomegaly Neurologic: CN's II-XI intact bilaterally and moves all extremities Psychiatric: Orientation: alert and oriented x 3 Signed By: <Electronically signed by Floyd Eason MD> 01/07/21 0935 Created: 01/07/21 0928 The status of this report is Signed. Draft = Not yet reviewed or approved by Medical Physician. Signed = Reviewed and approved by Medical Physician. Allergies Allergy/AdvReac Type Severity Reaction Status Date / Time No Known Allergies Allergy Unknown Verified 01/13/21 18:33 Home Medications Medication Instructions Recorded Confirmed Type aspirin 81 mg tablet,delayed 81 mg PO QAM tab 05/10/18 01/13/21 History release clopidogrel [Plavix] 1 tab PO QAM 11/09/18 01/13/21 History metoprolol tartrate 25 mg tablet 12.5 mg PO BID #90 tab 12/31/19 01/13/21 Rx pantoprazole 40 mg tablet,delayed 40 mg PO QAM #30 tab 04/27/20 01/13/21 Rx release calcitriol [Rocaltrol] 0.25 mcg PO QAM 06/17/20 01/13/21 History levothyroxine 175 mcg PO QAM 11/16/20 01/13/21 History acetaminophen [Tylenol Extra 1,000 mg PO Q6 PRN 11/18/20 01/13/21 History Strength] atorvastatin 80 mg tablet 80 mg PO HS #90 tab 11/25/20 01/13/21 Rx gentamicin 0.1 % topical ointment 1 applic TOPICAL ONCE 42 Days #30 g 11/25/20 01/13/21 Rx chlorthalidone 25 mg PO QAM 12/23/20 01/13/21 History oxycodone 5 mg PO TID PRN 12/23/20 01/13/21 History doxycycline hyclate 100 mg tablet 100 mg PO BID 14 Days #28 tab 01/04/21 01/13/21 Rx potassium chloride 20 meq PO BID 01/13/21 01/13/21 History insulin aspart U-100 100 unit/mL 60 unit SQ UD #20 ml 01/14/21 Rx subcutaneous solution Patient History Medical History Aortic stenosis s/p porcine valve replacement (2015) with CABG x 1 CAD (coronary artery disease) s/p CABG x 1 (2015) Chronic renal disease, stage 3, moderately decreased glomerular filtration rate (GFR) between 30-59 mL/min/1.[address] Lerner Diabetes mellitus type 1 Diabetic autonomic neuropathy associated with type 1 diabetes mellitus Diabetic nephropathy associated with type 1 diabetes mellitus Dyslipidemia GERD (gastroesophageal reflux disease) Hypertension Hypothyroidism Insulin pump in place Nephrolithiasis Osteoarthritis Osteoporosis PAD (peripheral artery disease) Proliferative diabetic retinopathy associated with type 1 diabetes mellitus PVD (peripheral vascular disease) s/p B/L iliac artery stents (2014), R common/external iliac (2017), R common femoral endarterectomy (11/2018) with bovine patch. Left femoral to PT composite bypass graft (06/2020) Surgical History H/O cataract extraction R/L H/O endarterectomy R common femoral (11/2018) History of ankle surgery Left ankle (hardware since removed) History of aortic valve replacement 2016 ([facility] [place] History of arterial bypass of lower extremity Left femoral to PT composite bypass graft (06/2020) History of cardiac cath 2016 > no stents (subsequent CABG with AVR in 2015) History of carpal tunnel release R/L History of colonoscopy History of coronary artery bypass graft CABG x1 + AVR (2015) History of esophagogastroduodenoscopy (EGD) History of myringotomy History of open reduction and internal fixation (ORIF) procedure LLE () History of skin graft Split Thickness Skin Graft of Left Lateral Ankle (11/18/20): LMA#5, atraumatic x1 at [facility] History of tonsillectomy History of tooth extraction History of umbilical hernia repair Hx of surgical procedure Left Leg Wound Debridement and Irrigation S/P femoropopliteal bypass surgery S/P insertion of iliac artery stent B/L iliac stent placement (2014) 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 Family History Brother Family history of diabetes mellitus Sister Family history of diabetes mellitus Mother Family history of diabetes mellitus Grandmother (Maternal) Family history of diabetes mellitus Uncle Family hx of colon cancer Colorectal cancer Father Family history of esophageal cancer Sister Family history of diabetes mellitus Other No family history of adverse response to anesthesia Denies family history of Ovarian cancer Prostate cancer Myocardial infarction Breast cancer Social History Smoking Status: Former smoker Tobacco Type: Cigarettes and Smokeless Tobacco (Dip or Chew) Cigarettes Per Day: QUIT 15 YEARS AGO. 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 (4624-6057, roughly) caffeine: Yes (coffee, rarely ) during the past year weight has: remained stable Dental Care, Regularly: No Physical Activity Frequency: 1-2 Times per Week Seatbelt Use: always Sunscreen Use: No Assistive Devices: Walker Assistive Devices Comment: Myrna shoe for right foot. Cam Boot for left foot Results & Data ([facility]) Vital Signs (Past 12 Hours) Vital Signs Temp Pulse Resp BP Pulse Ox 01/18/21 07:25 36.5 C 75 18 156/78 H 97
[2021-01-18 14:46] LABS: BUN Creatinine Ratio 33.4 (10-20); Calcium 9.2 mg/dl (8.5-10.1); Creatinine Clr Calc Pharmacy 86.8 ml/min; Est GFR (African American) 100.9; Est GFR (Non-African American) 87.1; Potassium 4.4 mmol/L (3.5-5.1)
--- NOTE | 2021-01-18 16:28 | Anesthesiology Consultation ---
Date of Service January 18, 2021 The patient had been previously cleared for surgery several weeks ago but was cancelled due to hypokalemia (potassium was 2.5). His potassium is now 4.4. Assessment & Plan (1) Encounter for pre-operative examination: Chart Review Chart Review: Acceptable Risk for Surgery and Patient NOT seen in Pre Admission Testing Consults Requested none History Surgery Operation Date: 01/19/21 11:50 Proposed Procedures p Right Lower Extremity Femoral to Popliteal Prosthetic Bypass Graft - Floyd Eason MD Height/Weight Height: 5 ft 8 in Weight: 86 kg Allergies Allergy/AdvReac Type Severity Reaction Status Date / Time No Known Allergies Allergy Unknown Verified 01/13/21 18:33 Medications Home Medications Medication Instructions Recorded Confirmed Last Taken aspirin 81 mg tablet,delayed 81 mg PO QAM tab 05/10/18 01/13/21 01/13/21 release clopidogrel [Plavix] 1 tab PO QAM 11/09/18 01/13/21 01/13/21 metoprolol tartrate 25 mg tablet 12.5 mg PO BID #90 tab 12/31/19 01/13/21 01/13/21 pantoprazole 40 mg tablet,delayed 40 mg PO QAM #30 tab 04/27/20 01/13/21 01/13/21 release calcitriol [Rocaltrol] 0.25 mcg PO QAM 06/17/20 01/13/21 01/13/21 levothyroxine 175 mcg PO QAM 11/16/20 01/13/21 01/13/21 acetaminophen [Tylenol Extra 1,000 mg PO Q6 PRN 11/18/20 01/13/21 12/24/20 Strength] atorvastatin 80 mg tablet 80 mg PO HS #90 tab 11/25/20 01/13/21 01/12/21 gentamicin 0.1 % topical ointment 1 applic TOPICAL ONCE 42 Days #30 g 11/25/20 01/13/21 01/13/21 chlorthalidone 25 mg PO QAM 12/23/20 01/13/21 01/13/21 oxycodone 5 mg PO TID PRN 12/23/20 01/13/21 01/13/21 doxycycline hyclate 100 mg tablet 100 mg PO BID 14 Days #28 tab 01/04/21 01/13/21 01/13/21 potassium chloride 20 meq PO BID 01/13/21 01/13/21 01/13/21 insulin aspart U-100 100 unit/mL 60 unit SQ UD #20 ml 01/14/21 Unknown subcutaneous solution Active Medications Generic Name Dose Route Start Last Admin Trade Name Yogiq PRN Reason Stop Dose Admin Aspirin 81 mg 01/14/21 09:00 01/15/21 08:19 Aspirin 81 Mg Ectab PO 02/13/21 08:59 81 mg QAM LIZZY Administration Atorvastatin Calcium 80 mg 01/13/21 22:45 01/17/21 20:45 Atorvastatin 40 Mg Tab PO 02/12/21 22:44 80 mg HS LIZZY Administration Calcitriol 0.25 mcg 01/14/21 09:00 01/18/21 07:41 Calcitriol 0.25 Mcg Capsule PO 02/13/21 08:59 0.25 mcg QAM LIZZY Administration Chlorthalidone 25 mg 01/14/21 09:00 01/18/21 07:41 Chlorthalidone 25 Mg Tab PO 02/13/21 08:59 25 mg QAM LIZZY Administration Clopidogrel Bisulfate 75 mg 01/14/21 09:00 01/15/21 08:19 Clopidogrel Bisulfate 75 Mg Tab PO 02/13/21 08:59 75 mg QAM LIZZY Administration Enoxaparin Sodium 30 mg 01/13/21 23:00 01/18/21 11:04 Enoxaparin Inj 30 Mg/0.3 Ml Syr SQ 02/12/21 22:59 30 mg Q12H LIZZY Administration Gentamicin Sulfate 1 appln 01/14/21 09:00 01/18/21 07:40 Gentamicin Sulfate 0.1% Cr 15 Gm Tube EXT 01/24/21 08:59 1 appln DAILY LIZZY Administration Cefepime HCl 2,000 mg/ Syringe 20 mls @ 5 mls/min 01/14/21 04:00 01/18/21 11:05 IV 01/21/21 03:59 5 mls/min Q8H LIZZY Administration Protocol Daptomycin 675 mg/ Syringe 13.5 mls @ 6.75 mls/min 01/18/21 11:00 01/18/21 11:05 IV 01/21/21 10:59 6.75 mls/min Q24H LIZZY Administration Protocol Insulin Aspart 1 ea 01/14/21 07:30 01/18/21 13:24 Novolog Insulin Pump N/A 02/13/21 07:29 Not Given ACHS LIZZY Lactobacillus Acidoph/Casei/Rhamnos 2 cap 01/14/21 17:52 01/18/21 07:40 Advanced Probiotic 1250 Mg Capsule PO 02/13/21 17:51 2 cap DAILY LIZZY Administration Levothyroxine Sodium 175 mcg 01/14/21 06:30 01/18/21 05:58 Levothyroxine Sodium 175 Mcg Tablet PO 02/13/21 06:29 175 mcg DAILYBB LIZZY Administration Metoprolol Tartrate 12.5 mg 01/13/21 22:45 01/18/21 07:40 Metoprolol Tartrate 25 Mg Tab PO 02/12/21 22:44 12.5 mg BID LIZZY Administration Miscellaneous 15 - 30 gm 01/13/21 23:45 01/15/21 20:28 Carbohydrates For Hypoglycemia PO 02/12/21 23:44 15 gm UD PRN Administration Hypoglycemia Treatment Pantoprazole Sodium 40 mg 01/14/21 09:00 01/18/21 07:41 Pantoprazole 40 Mg Tab PO 02/13/21 08:59 40 mg QAM LIZZY Administration Potassium Chloride 20 meq 01/13/21 22:45 01/18/21 07:41 Potassium Chloride Crtab 20 Meq Tabcr PO 02/12/21 22:44 20 meq BID17 LIZZY Administration Past Medical History Medical History Aortic stenosis s/p porcine valve replacement (2015) with CABG x 1 CAD (coronary artery disease) s/p CABG x 1 (2015) Chronic renal disease, stage 3, moderately decreased glomerular filtration rate (GFR) between 30-59 mL/min/1.[address] Lerner Diabetes mellitus type 1 Diabetic autonomic neuropathy associated with type 1 diabetes mellitus Diabetic nephropathy associated with type 1 diabetes mellitus Dyslipidemia GERD (gastroesophageal reflux disease) Hypertension Hypothyroidism Insulin pump in place Nephrolithiasis Osteoarthritis Osteoporosis PAD (peripheral artery disease) Proliferative diabetic retinopathy associated with type 1 diabetes mellitus PVD (peripheral vascular disease) s/p B/L iliac artery stents (2014), R common/external iliac (2017), R common femoral endarterectomy (11/2018) with bovine patch. Left femoral to PT composite bypass graft (06/2020) Past Family History Family History Brother Family history of diabetes mellitus Sister Family history of diabetes mellitus Mother Family history of diabetes mellitus Grandmother (Maternal) Family history of diabetes mellitus Uncle Family hx of colon cancer Colorectal cancer Father Family history of esophageal cancer Sister Family history of diabetes mellitus Other No family history of adverse response to anesthesia Denies family history of Ovarian cancer Prostate cancer Myocardial infarction Breast cancer Past Surgical History Surgical History H/O cataract extraction R/L H/O endarterectomy R common femoral (11/2018) History of ankle surgery Left ankle (hardware since removed) History of aortic valve replacement 2015 ([facility] [place]) History of arterial bypass of lower extremity Left femoral to PT composite bypass graft (06/2020) History of cardiac cath 2015 > no stents (subsequent CABG with AVR in 2015) History of carpal tunnel release R/L History of colonoscopy History of coronary artery bypass graft CABG x1 + AVR (2015) History of esophagogastroduodenoscopy (EGD) History of myringotomy History of open reduction and internal fixation (ORIF) procedure LLE () History of skin graft Split Thickness Skin Graft of Left Lateral Ankle (11/18/20): LMA#5, atraumatic x1 at [facility] History of tonsillectomy History of tooth extraction History of umbilical hernia repair Hx of surgical procedure Left Leg Wound Debridement and Irrigation S/P femoropopliteal bypass surgery S/P insertion of iliac artery stent B/L iliac stent placement (2014) 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 HX OF 2 PPD "WASTED A LOT" Smoking End Date: 15 years ago Hx Alcohol Use: Yes Alcohol type: beer alcohol intake frequency: holidays/special occasions only Hx Substance Use: No substance use type: does not use Physical Exam Vital Signs Last Vital Signs Temp 36.8 C 01/18/21 16:13 Pulse 73 01/18/21 16:13 Resp 16 01/18/21 16:13 BP 153/81 H 01/18/21 16:13 Pulse Ox 97 01/18/21 16:13 Testing Laboratory Results 01/14/21 06:07 01/18/21 14:07 PT 10.8 Seconds (9.0-12.0) 01/13/21 16:35 INR 1.1 (0.9-1.1) 01/13/21 16:35 APTT 24.7 Seconds (21.0-31.0) 01/13/21 16:35 Blood Type A Positive 01/18/21 09:49 Antibody Screen NEGATIVE 01/18/21 09:49 01/13/21 17:20 Gram Stain - Final Foot,Right Deep Wound Culture - Final Enterococcus faecalis VRE 01/13/21 18:50 Aerobic Blood Culture - Preliminary Blood No growth in Aerobic bottle after 48 hours. Anaerobic Blood Culture - Preliminary No growth in Anaerobic bottle after 48 hours. 01/13/21 16:35 Aerobic Blood Culture - Preliminary Blood No growth in Aerobic bottle after 48 hours. Anaerobic Blood Culture - Preliminary No growth in Anaerobic bottle after 48 hours. 01/18/21 01/18/21 11:47 08:01 POC Glucose 176 H 174 H Electrocardiogram Date: 01/13/21 Findings: + RBBB SR with sinus arrhythmia, rate 77, cannot rule old infarct Echocardiogram Date: 11/20/20 EF: 55-60 LV Function: normal Other Findings: + atrial enlargement (biatrial) bioprosthetic aortic valve
--- NOTE | 2021-01-18 18:31 | Billing Data ---
Date of Service January 18, 2021 Coding Level of Care Code 94700 Subseq Hosp Care Lvl 3
[2021-01-18] MEDS: ATORVASTATIN 40 MG TAB PO SCH (20:25)
[2021-01-19] MEDS ORDERED: Nursing to Pharmacy Communication SCH (02:45)
[2021-01-19] MEDS: CEFEPIME 2,000 MG in SYRINGE 0 ML IV SCH ×3 (04:12→22:00)
[2021-01-19] MEDS ORDERED: SODIUM CHLORIDE 0.9% 250 ML IV PRN (05:00)
[2021-01-19] MEDS: LEVOTHYROXINE SODIUM 175 MCG TABLET PO SCH (05:49)
[2021-01-19] MEDS: NovoLOG INSULIN PUMP SCH ×3 (05:50→21:41)
[2021-01-19] MEDS: POTASSIUM CHLORIDE CRTAB 20 MEQ TABCR PO SCH ×2 (08:59→21:40)
[2021-01-19] MEDS: METOPROLOL TARTRATE 25 MG TAB PO SCH ×2 (09:20→22:00)
[2021-01-19] MEDS: GENTAMICIN SULFATE 0.1% CR 15 GM TUBE EXT SCH (09:50)
[2021-01-19] MEDS: ADVANCED PROBIOTIC 1250 MG CAPSULE PO SCH (10:24)
[2021-01-19] MEDS: ENOXAPARIN INJ 30 MG/0.3 ML SYR SQ SCH (11:23)
[2021-01-19] MEDS: DAPTOmycin 675 MG in SYRINGE 0 ML IV SCH (11:26)
[2021-01-19] MEDS: CALCITRIOL 0.25 MCG CAPSULE PO SCH (12:34)
[2021-01-19] MEDS: PANTOprazole 40 MG TAB PO SCH (12:34)
--- NOTE | 2021-01-19 13:00 | History & Physical Bridge Note ---
Date of Service January 19, 2021 History & Physical Bridge Note Patient for right fem pop bypass. I have discussed the risks options and benefits of the procedure with the patient. The patient understands the risks options and benefits and agrees to the procedure. I have examined the patient, reviewed the History & Physical and in the interval since the performance of the History & Physical I have noted the following changes of clinical significance: no changes noted
[2021-01-19] MEDS ORDERED: HEPARIN (PORCINE) 1000 UNIT/ML 10 ML (CATH LAB USE ONLY) ONE (13:28)
[2021-01-19] MEDS ORDERED: PAPAVERINE HCL INJ 30 MG/ML 2 ML VIAL ONE (13:28)
[2021-01-19] MEDS ORDERED: GELATIN SPONGE SZ 100 ONE (13:28)
[2021-01-19] MEDS ORDERED: LIDOCAINE 1% LOCAL 20 ML VIAL ONE (13:28)
[2021-01-19] MEDS ORDERED: BUPIVACAINE/EPINEPHRINE 0.5% MPF 1:200,000 30 ML VIAL ONE (13:28)
[2021-01-19] MEDS ORDERED: THROMBIN FOR SOLN 20000 UNIT KIT ONE (13:29)
[2021-01-19] MEDS ORDERED: PROMETHAZINE HCL 12.5 MG in SODIUM CHLORIDE 0.9% 50 ML IV PRN (13:31)
[2021-01-19] MEDS ORDERED: HYDROmorphone INJ 2 MG/ML SYR/VIAL IV PRN (13:31)
[2021-01-19] MEDS ORDERED: ATROPINE SULFATE 0.1 MG/ML 10ML SYR IV PRN (13:31)
[2021-01-19] MEDS ORDERED: ONDANSETRON INJ 2 MG/ML 2 ML VIAL IV PRN (13:31)
[2021-01-19] MEDS ORDERED: fentaNYL citrate 100 MCG/2 ML VIAL IV PRN (13:31)
[2021-01-19] MEDS ORDERED: ePHEDrine sulfate 50 MG/ML AMP IV PRN (13:31)
[2021-01-19] MEDS ORDERED: METOCLOPRAMIDE HCL INJ 5 MG/ML 2 ML VIAL IV PRN (13:31)
[2021-01-19] MEDS: CHLORTHALIDONE 25 MG TAB PO SCH (13:36)
--- NOTE | 2021-01-19 13:41 | Medical Student Progress Note ---
Date of Service January 19, 2021 Assessment & Plan Admission and Anticipated Discharge Date Admission Date: January 13, 2021 1. Diabetic Ulcer of the Right Heel with Superimposed Cellulitis -Blood cultures negative History of Pseudomonas and MRSA on previous wound cultures Continue cefepime and daptomycin Wound care continue Santyl and gentamicin - Revascularization planned for this afternoon 2. Peripheral Vascular Disease Status post angiogram of the right lower extremity on November 09 Was originally scheduled for femoral-popliteal bypass surgery of this leg, however due to hypokalemia, was postponed to the beginning of February Dr. Eason moved patient's surgery up to Monday will continue IV antibiotics until then Continue statin - Aspirin and plavix held since Monday prior to procedure 3. Diabetic ulcer of right great toe, concern for underlying osteomyelitis -Status post debridement in the wound care clinic 01/13 -X-rays obtained in the ER show cortical changes are concerning for a mild, but developing osteomyelitis -CT right foot without contrast showing erosive change along the plantar and medial base of the first distal phalanx, suspicious for osteomyelitis -patient does have a screw in this foot, and therefore is not a candidate for MRI General surgery following - awaiting input from vascular surgery before proceeding with surgical debridement -Antibiotics as above 4. Hypokalemia, Hypomagnesemia - Repleted from 2.4 to 3.2 to 4.4, continue potassium chloride 5. Type 1 diabetes - Patient using his own insulin pump. - We will proceed with AC at bedtime blood sugar checks. - If needed, can consider pausing insulin pump and temporarily utilizing subcutaneous insulin Chronic medical problems Hypertension: Continue metoprolol, chlorthalidone GERD: Continue pantoprazole Hypokalemia: Continue potassium chloride 20 mEq twice daily supplementation CKD 3: Avoid nephrotoxic meds Code: FULL CODE Diet: CC DM2 Dispo: Med/surg PPX: Lovenox Supervising Attestation I personally examined the patient and verified all perez points of history and exam, discussed case, and agree with decision making with Taiwo Prado, ABRAN feeling alright, just waiting for surgery. no new complaints Vitals noted, in general he is awake and alert pleasant no distress. HEENT normocephalic atraumatic mucous membranes moist. Breathing unlabored no accessory muscle use good effort. Skin shows no rashes no pallor or icterus. Heel is moderately tender, dressed, no tracking erythema. Diabetic/vascular insufficiency ulcer/foot infection/osteomyelitiscontinue cefepime and daptomycin for now, hopefully will improve some with revascularization, but will need to follow closely Uncontrolled type 1 diabeteson 01/19, educated extensively on "why to care" ("high sugars clog arteries"), and how to utilize postprandial glucose monitoring to "grade his work" as far as insulincarb matching. continue to adjust insulins and follow Otherwise as above, anticipate revascularization today Jose Velasquez is a 65 year old male on hospital day 7 with a pertinent PMH of type I diabetes and peripheral vascular disease for a right heel ulcer that developed into cellulitis and osteomyelitis with vancomycin-resistant enterococcus (VRE). He feels well overall. Had in-depth discussion on diabetes management yesterday with patient, specifically on checking post-prandial blood sugars in an effort to "grade his work." Today he is actively checking his sugars via insulin pump and comparing to nurse measurements. He is not experiencing fevers, chills, n/v, abdominal pain, diarrhea, BRANHAM, lightheadedness, blurred vision, or LOC. He feels well but continues to have some pain in the right heel. Revascularization planned for this afternoon. Review of Systems Review of Systems: All systems reviewed & are unremarkable except as noted in HPI & below Physical Exam Constitutional: WD/WN, vitals as above Eyes: PERRL, conjunctivae normal, anicteric sclerae Neck: trachea midline, no thyromegaly Respiratory: normal respiratory effort, lungs clear to auscultation Cardiovascular: RRR, no murmur, no edema Gastrointestinal (Abdomen): normal bowel sounds, soft, nontender, no hepatosplenomegaly Musculoskeletal: no cyanosis or clubbing, extremities motor strength 5/5 Psychiatric: A+Ox3, euthymic affect Lymphatic: no cervical or axillary lymphadenopathy Results & Data ([facility]) Vital Signs (Past 12 Hours) Vital Signs Temp Pulse Resp BP BP Pulse Ox 01/19/21 13:04 36.9 C 69 18 117/58 L 96 01/19/21 06:49 36.7 C 70 17 154/78 H 95
[2021-01-19] MEDS ORDERED: PHENYLEPHRINE HCL 10 MG/ML VIAL IM ONE (14:36)
[2021-01-19] MEDS ORDERED: HEPARIN SOD (PORCINE) 1000 UNIT/ML IV ONE (14:36)
[2021-01-19] MEDS ORDERED: PROTAMINE SULFATE 10 MG/ML 5 ML VIAL IV ONE (14:36)
[2021-01-19] MEDS ORDERED: LIDOCAINE 2% 2 ML VIAL/AMP(20MG/ML) INFIL ONE (14:36)
[2021-01-19] MEDS ORDERED: ONDANSETRON INJ 2 MG/ML 2 ML VIAL IV ONE (14:36)
[2021-01-19] MEDS ORDERED: NEOSTIGMINE METHYLSULFATE 5 MG/5 ML SYR IV ONE (14:36)
[2021-01-19] MEDS ORDERED: PROPOFOL IV EMULSION 10 MG/ML 20 ML VIAL IV ONE (14:36)
[2021-01-19] MEDS ORDERED: ROCURONIUM BROMIDE 10 MG/ML 5 ML VIAL IV ONE ×3 (14:36)
[2021-01-19] MEDS ORDERED: GLYCOPYRROLATE 0.2 MG/ML VIAL IM ONE (14:36)
[2021-01-19] MEDS ORDERED: MIDAZOLAM HCL 1 MG/ML 2ML VIAL IV ONE (14:36)
[2021-01-19] MEDS ORDERED: fentaNYL citrate 100 MCG/2 ML VIAL IV ONE (14:36)
[2021-01-19] MEDS ORDERED: ePHEDrine sulfate 50 MG/ML SYR IV ONE (14:36)
[2021-01-19] MEDS ORDERED: LARYING-O-JET KIT (LTA) EXT ONE (14:36)
[2021-01-19] MEDS ORDERED: VISIPAQUE IV PRN (16:39)
--- NOTE | 2021-01-19 17:30 | Post Operative Brief Note ---
Immediate Post Op Note v1 Date of Surgery January 19, 2021 Pre & Post Diagnosis Operation Date: 01/19/21 11:50 Pre-Op Diagnosis: Atherosclerosis of [place] artery of right lower extremity with ulceration of foot Post-Op Diagnosis: Atherosclerosis of [place] artery of right lower extremity with ulceration of foot I identified the patient and participated in the time-out.: Yes Procedure Operation Date: 01/19/21 11:50 Actual Procedures p Right Femoral to Posterior tibial Prosthetic Bypass Graft(Right) - Floyd Eason MD Surgeon Floyd Eason MD Manager [employer] [place],PAC Estimated Blood Loss 850 Findings Consistent with Post-Op Diagnosis Drains Jerez Catheter (16fr jerez catheter placed in operating room by Carlotta Mcmahan RN. Urine clear yellow. Output measured by anesthesia throughout case. ) Anesthesia Type General Complications none Disposition Accompanied Patient To Recovery: No Disposition: Recovery Room
--- NOTE | 2021-01-19 18:10 | Anesthesiology Progress Note ---
Date of Service January 19, 2021 Anesthesia Post Procedure Vital Signs Vital Signs: Temp Pulse Pulse Resp BP BP Pulse Ox 01/19/21 18:00 72 22 143/60 H 98 01/19/21 17:50 70 16 136/65 99 01/19/21 17:41 36.4 C L 68 16 157/52 H 100 01/19/21 13:04 36.9 C 69 18 117/58 L 96 01/19/21 06:49 36.7 C 70 17 154/78 H 95 01/18/21 23:41 37.2 C 75 18 123/74 97 01/18/21 20:24 80 127/76 Transfer of Care Handoff Completed per policy Notes Mental Status: alert / awake / arousable and participated in evaluation Patient Amnestic to Procedure: Yes Nausea / Vomiting: adequately controlled Pain: adequately controlled Airway Patency, RR, SpO2: stable & adequate BP & HR: stable & adequate Hydration State: stable & adequate Anesthetic Complications: no major complications apparent
[2021-01-19] MEDS ORDERED: MoRPHine SULFATE 4 MG/ML 1 ML CARP\\VIAL IV PRN (18:45)
[2021-01-19 19:08] LABS: Basophils # (auto) 0.02 K/uL (0-0.2); Basophils % (auto) 0.2 %; Eosinophils # (auto) 0.15 K/uL (0-0.5); Eosinophils % (auto) 1.2 %; Hematocrit (blood only) 33.4 % (42-52); Hemoglobin 11.1 g/dL (14.0-18.0); Immature Granulocytes # (auto) 0.04 K/uL (0.00-0.02); Immature Granulocytes % (auto) 0.3 %; Lymphocytes # (auto) 1.52 K/uL (1.2-3.4); Lymphocytes % (auto) 11.7 %; Mean Corpuscular Volume 84.3 fL (80-100); Mean Platelet Volume 9.4 fL (7.4-10.4); Monocytes # (auto) 0.72 K/uL (0.11-0.59); Monocytes % (auto) 5.5 %; Neutrophils # (auto) 10.56 K/uL (1.4-6.5); Neutrophils % (auto) 81.1 %; Platelet Count 288 K/uL (130-400); RDW Coefficient of Variation 14.3 % (11.5-14.5); RDW Standard Deviation 44.3 fL (36.4-46.3); Red Blood Count 3.96 M/uL (4.7-6.1); White Blood Count 13.01 K/uL (4.8-10.8)
[2021-01-19 19:13] LABS: Mean Corpuscular Hgb Conc 33.2 g/dL (32-36)
--- NOTE | 2021-01-19 19:19 | Critical Care Consultation ---
Date of Consultation January 19, 2021 Assessment & Plan (1) Atherosclerosis of [place] artery of lower extremity with ulceration of foot: Impression: 65-year-old male presents to the ICU Neuro - [facility] ICU: Negative Cardiac - CADs/p CABG x1 with AVR (2015) -Continue ASA, statin, Plavix, MTP PVDpatient with atherosclerosis of the [place] artery of right lower extremity with ulceration to foot, now status post right femoral to posterior tibial prosthetic bypass graft -Admitted to ICU POD 1 and currently NSR and hemodynamically stable on monitor -A-line for continuous blood pressure monitoring, avoid hypertension -Continue statin, ASA, Plavix -Continuous monitor on telemetry HTNcontinue MTP, chlorthalidone Respiratory - No history of pulmonary disease, currently maintaining oxygen saturation on room air Continuous monitor on pulse ox GI - Diabetic diet Continue PPI RENAL/LYTES - CKDcreatinine stable 0.74, monitor routine BMPs Hypokalemiamonitor routine BMP and replete electrolyte as indicated -Continue scheduled 20 KCl - Foleystrict I's and O's ENDO - DM type I (uncontrolled)last hemoglobin A1c from October 19.6 -Blood glucose currently within range with patient using his own insulin pump, continue check glucose ACHS -ICU hyperglycemic protocol Hypothyroidcontinue Synthroid HEME - H&H stable, no signs of bleeding. Monitor routine CBCs and transfuse if indicated ID - Osteomyelitis -CT right foot without contrast showing erosive change along the plantar and medial base of the first distal phalanx, suspicious for osteomyelitis -Patient not candidate for MRI imaging due to screw and fluid General surgery following, will follow recommendations. Now status post endovascular revascularization. -Wound culture from 01/13 growing VRE, blood cultures 01/13 NTD -Continue cefepime and daptomycin LINES/IV ACCESS - Peripheral IVs, A-line DVT PROPHYLAXIS - SCDs, holding anticoagulation now post surgery Thank you for allowing us to participate in the care of this patient. Please refer to my attending physician's documentation for any further recommendations. (2) Osteomyelitis: (3) Diabetic foot ulcer: (4) Ischemic ulcer: (5) History of aortic valve replacement: (6) Aortic stenosis: (7) CAD (coronary artery disease): (8) Hypertension: (9) Hypothyroidism: (10) Dyslipidemia: (11) PVD (peripheral vascular disease): History of Present Illness Attending Physician: Robert Crews DO History of Present Illness Patient is 65-year-old male with PMH including type 1 diabetes with neuropathy, diabetic foot ulcers, peripheral artery disease with ischemic ulcers, chronic osteomyelitis, CAD s/p CABG x1 in 2015, osteoporosis, CKD stage III, HTN, and aortic stenosis s/p porcine valve replacement 2015, and hypothyroidism who presented to the emergency department on 01/13 for worsening drainage and eschar to the right foot. Patient is normally seen in the wound clinic and recently had a debridement. He underwent a right lower angiogram, with intention of femoralpopliteal bypass in November which had to be rescheduled for February due to hypokalemia. CT of the right foot was concerning for osteomyelitis, and he was started on daptomycin and cefepime in the ED. Patient now presents to the ICU following a right femoral to posterior tibial prosthetic bypass graft. Currently the patient is alert and oriented appears comfortable on room air. He is hemodynamically stable and normotensive without need for hemodynamic drips. Currently the patient denies any pain, fevers, cough or sore throat, headache, dizziness, shortness of breath, palpitations, chest pain, abdominal pain. He has had some intermittent nausea since surgery without vomiting, which is controlled with Zofran. He has a dopplerable pedal pulse to the right lower extremity and did have some sensation on exam. Wound dressings are intact without spotting. Patient to remain in ICU for further monitoring at this time Allergies Allergy/AdvReac Type Severity Reaction Status Date / Time No Known Allergies Allergy Unknown Verified 01/13/21 18:33 Home Medications Medication Instructions Recorded Confirmed Type aspirin 81 mg tablet,delayed 81 mg PO QAM tab 05/10/18 01/13/21 History release clopidogrel [Plavix] 1 tab PO QAM 11/09/18 01/13/21 History metoprolol tartrate 25 mg tablet 12.5 mg PO BID #90 tab 12/31/19 01/13/21 Rx pantoprazole 40 mg tablet,delayed 40 mg PO QAM #30 tab 04/27/20 01/13/21 Rx release calcitriol [Rocaltrol] 0.25 mcg PO QAM 06/17/20 01/13/21 History levothyroxine 175 mcg PO QAM 11/16/20 01/13/21 History acetaminophen [Tylenol Extra 1,000 mg PO Q6 PRN 11/18/20 01/13/21 History Strength] atorvastatin 80 mg tablet 80 mg PO HS #90 tab 11/25/20 01/13/21 Rx gentamicin 0.1 % topical ointment 1 applic TOPICAL ONCE 42 Days #30 g 11/25/20 01/13/21 Rx chlorthalidone 25 mg PO QAM 12/23/20 01/13/21 History oxycodone 5 mg PO TID PRN 12/23/20 01/13/21 History doxycycline hyclate 100 mg tablet 100 mg PO BID 14 Days #28 tab 01/04/21 01/13/21 Rx potassium chloride 20 meq PO BID 01/13/21 01/13/21 History insulin aspart U-100 100 unit/mL 60 unit SQ UD #20 ml 01/14/21 Rx subcutaneous solution Patient History Medical History Aortic stenosis s/p porcine valve replacement (2015) with CABG x 1 CAD (coronary artery disease) s/p CABG x 1 (2015) Chronic renal disease, stage 3, moderately decreased glomerular filtration rate (GFR) between 30-59 mL/min/1.[address] Lernre Diabetes mellitus type 1 Diabetic autonomic neuropathy associated with type 1 diabetes mellitus Diabetic nephropathy associated with type 1 diabetes mellitus Dyslipidemia GERD (gastroesophageal reflux disease) Hypertension Hypothyroidism Insulin pump in place Nephrolithiasis Osteoarthritis Osteoporosis PAD (peripheral artery disease) Proliferative diabetic retinopathy associated with type 1 diabetes mellitus PVD (peripheral vascular disease) s/p B/L iliac artery stents (2014), R common/external iliac (2017), R common femoral endarterectomy (11/2018) with bovine patch. Left femoral to PT composite bypass graft (06/2020) Surgical History H/O cataract extraction R/L H/O endarterectomy R common femoral (11/2018) History of ankle surgery Left ankle (hardware since removed) History of aortic valve replacement 2015 ([facility] [place]) History of arterial bypass of lower extremity Left femoral to PT composite bypass graft (06/2020) History of cardiac cath 2016 > no stents (subsequent CABG with AVR in 2015) History of carpal tunnel release R/L History of colonoscopy History of coronary artery bypass graft CABG x1 + AVR (2015) History of esophagogastroduodenoscopy (EGD) History of myringotomy History of open reduction and internal fixation (ORIF) procedure LLE (1970s) History of skin graft Split Thickness Skin Graft of Left Lateral Ankle (11/18/20): LMA#5, atraumatic x1 at 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 Family History Brother Family history of diabetes mellitus Sister Family history of diabetes mellitus Mother Family history of diabetes mellitus Grandmother (Maternal) Family history of diabetes mellitus Uncle Family hx of colon cancer Colorectal cancer Father Family history of esophageal cancer Sister Family history of diabetes mellitus Other No family history of adverse response to anesthesia Denies family history of Ovarian cancer Prostate cancer Myocardial infarction Breast cancer Social History Smoking Status: Former smoker Tobacco Type: Cigarettes and Smokeless Tobacco (Dip or Chew) Cigarettes Per Day: QUIT 15 YEARS AGO. 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 ([id number], roughly) caffeine: Yes (coffee, rarely ) during the past year weight has: remained stable Dental Care, Regularly: No Physical Activity Frequency: 1-2 Times per Week Seatbelt Use: always Sunscreen Use: No Assistive Devices: Walker Assistive Devices Comment: Myrna shoe for right foot. Cam Boot for left foot Review of Systems Review of Systems: All systems reviewed & are unremarkable except as noted in HPI & below Physical Exam Constitutional: cooperative and comfortable; no acute distress Eyes: PERRL, conjunctivae normal, anicteric sclerae ENMT: external ear and nose normal, oropharynx normal Neck: trachea midline, no thyromegaly Respiratory: normal respiratory effort, lungs clear to auscultation Cardiovascular: RRR, no murmur, no edema Heart Sounds: normal S1 and normal S2 Vessels: no JVD Extremities: no edema Gastrointestinal (Abdomen): normal bowel sounds, soft, nontender, no hepatosplenomegaly Musculoskeletal: Right ankle cellulitis and ulcer on the first middle toe. Right foot is dusky and cool to touch, but Dopplerable pedal pulse Skin: no rashes, warm and dry Neurologic: PERRL, EOMI, accommodation nl, no face palsy, no dysarthria Psychiatric: A+Ox3, euthymic affect Results & Data Results & Data ([facility]) Vital Signs (Past 12 Hours) Vital Signs Temp Pulse Pulse Resp BP Pulse Ox 01/19/21 18:10 36.4 C L 73 21 127/47 L 97 01/19/21 18:00 72 22 143/60 H 98 01/19/21 17:50 70 16 136/65 99 01/19/21 17:41 36.4 C L 68 16 157/52 H 100 01/19/21 13:04 36.9 C 69 18 117/58 L 96 Coding Level of Care Code 68536 Inpt Consult Level 3 Diagnoses Atherosclerosis of [place] artery of lower extremity with ulceration of foot I70.25; L97.509 Osteomyelitis M86.9 Laterality: right Osteomyelitis location: foot Osteomyelitis type: unspecified type Diabetic foot ulcer E10.621; L97.412 Diabetes mellitus type: type 1 Diabetic foot ulcer location: heel Laterality: right Non-pressure ulcer stage: with fat layer exposed Ischemic ulcer L98.492 Non-pressure ulcer stage: with fat layer exposed History of aortic valve replacement Z95.2 Aortic stenosis I35.0 CAD (coronary artery disease) I25.10 Hypertension I10 Hypothyroidism E03.9 Dyslipidemia E78.5 PVD (peripheral vascular disease) I73.9 (1) Ischemic ulcer Non-pressure ulcer stage: with fat layer exposed Qualified Code(s): L98.492 - Non-pressure chronic ulcer of skin of other sites with fat layer exposed (2) Diabetic foot ulcer Diabetes mellitus type: type 1 Diabetic foot ulcer location: heel Laterality: right Non-pressure ulcer stage: with fat layer exposed Qualified Code(s): E10.621 - Type 1 diabetes mellitus with foot ulcer; L97.412 - Non- pressure chronic ulcer of right heel and midfoot with fat layer exposed (3) Osteomyelitis Laterality: right Osteomyelitis location: foot Osteomyelitis type: unspecified type Qualified Code(s): M86.9 - Osteomyelitis, unspecified
--- NOTE | 2021-01-19 19:24 | Billing Data ---
Date of Service January 19, 2021 Coding Level of Care Code 60644 Subseq Hosp Care Lvl 3
[2021-01-19 19:34] LABS: BUN Creatinine Ratio 36.2 (10-20); Calcium 8.4 mg/dl (8.5-10.1); Est GFR (African American) 113.8; Est GFR (Non-African American) 98.2; Potassium 3.1 mmol/L (3.5-5.1)
[2021-01-19] MEDS: ONDANSETRON INJ 2 MG/ML 2 ML VIAL IV SCH (19:56)
[2021-01-19 20:07] LABS: Magnesium 1.5 mg/dl (1.8-2.4); Phosphorus 2.7 mg/dl (2.5-4.9)
[2021-01-19] MEDS ORDERED: POTASSIUM CHLORIDE CRTAB 20 MEQ TABCR PO STA (21:19)
[2021-01-19] MEDS: MAGNESIUM SULFATE / D5W 1 GM/100 ML BAG IV SCH ×2 (21:35→23:35)
[2021-01-19] MEDS: POTASSIUM CHLORIDE / WTR 10 MEQ/100 ML PLCT IV SCH ×2 (21:35→23:00)
[2021-01-19] MEDS: ICU PROTOCOL FOR HYPERGLYCEMIA SCH (21:41)
[2021-01-19] MEDS: ATORVASTATIN 40 MG TAB PO SCH (22:01)
[2021-01-19] MEDS ORDERED: LABETALOL HCL IV 5 MG/ML 20ML IV PRN (23:32)
[2021-01-20] MEDS: NovoLOG INSULIN PUMP SCH ×2 (00:34→06:06)
[2021-01-20] MEDS: MAGNESIUM SULFATE / D5W 1 GM/100 ML BAG IV SCH (01:35)
[2021-01-20] MEDS: ONDANSETRON INJ 2 MG/ML 2 ML VIAL IV SCH ×4 (02:12→20:22)
[2021-01-20] MEDS: CEFEPIME 2,000 MG in SYRINGE 0 ML IV SCH (04:50)
[2021-01-20 05:30] LABS: Hematocrit (blood only) 29.8 % (42-52); Mean Corpuscular Hemoglobin 27.8 pg (25-34); Mean Corpuscular Hgb Conc 33.6 g/dL (32-36); Mean Corpuscular Volume 82.8 fL (80-100); Mean Platelet Volume 9.5 fL (7.4-10.4); Platelet Count 264 K/uL (130-400); RDW Coefficient of Variation 14.6 % (11.5-14.5); RDW Standard Deviation 44.2 fL (36.4-46.3); White Blood Count 13.33 K/uL (4.8-10.8)
[2021-01-20 05:56] LABS: BUN Creatinine Ratio 25.7 (10-20); Basophils # (auto) 0.02 K/uL (0-0.2); Basophils % (auto) 0.2 %; Calcium 7.6 mg/dl (8.5-10.1); Eosinophils # (auto) 0.01 K/uL (0-0.5); Eosinophils % (auto) 0.1 %; Est GFR (African American) 97.1; Est GFR (Non-African American) 83.8; Immature Granulocytes # (auto) 0.04 K/uL (0.00-0.02); Immature Granulocytes % (auto) 0.3 %; Lymphocytes # (auto) 1.31 K/uL (1.2-3.4); Lymphocytes % (auto) 9.8 %; Monocytes # (auto) 1.43 K/uL (0.11-0.59); Monocytes % (auto) 10.7 %; Neutrophils # (auto) 10.52 K/uL (1.4-6.5); Neutrophils % (auto) 78.9 %; Ovalocytes 1+; Potassium 3.8 mmol/L (3.5-5.1)
[2021-01-20] MEDS ORDERED: POTASSIUM CHLORIDE CRTAB 20 MEQ TABCR PO STA (06:16)
[2021-01-20] MEDS: LEVOTHYROXINE SODIUM 175 MCG TABLET PO SCH (06:21)
[2021-01-20] MEDS ORDERED: GLUCOSE 40% GEL 15 GM TUBE PO PRN (06:23)
[2021-01-20] MEDS ORDERED: GLUCOSE 10 TABS/TUBE PO PRN (06:23)
[2021-01-20] MEDS ORDERED: DC ALL PREVIOUSLY ORDERED DIABETES MEDS ONE (06:23)
[2021-01-20] MEDS ORDERED: DEXTROSE 50% 50 ML SYRINGE IV PRN (06:23)
[2021-01-20] MEDS ORDERED: CARBOHYDRATES FOR HYPOGLYCEMIA PO PRN (06:23)
[2021-01-20] MEDS ORDERED: GLUCAGON FOR INJ 1 MG VIAL SQ PRN (06:23)
[2021-01-20] MEDS ORDERED: PHARMACY GLYCEMIC MGMT CONSULT PRN (06:43)
[2021-01-20] MEDS: INSULIN ASPART 100 UNITS/ML 3 ML PEN SC SCH ×4 (07:43→21:13)
[2021-01-20] MEDS ORDERED: INSULIN GLARGINE SOLOSTAR 100 UNITS/ML 3 ML PEN SC SCH (07:45)
[2021-01-20 08:45] LABS: Magnesium 2.1 mg/dl (1.8-2.4); Phosphorus 2.3 mg/dl (2.5-4.9)
--- NOTE | 2021-01-20 09:31 | XRay Report ---
XR chest 1V portable CLINICAL HISTORY: Follow-up examination. COMPARISON STUDY: 07/31/2020 FINDINGS: There are postsurgical changes of a midline sternotomy and valvular replacement. The cardia c and mediastinal contours remain stable. There is no failure. There is no focal pulmonary consolidat ion. There are no pleural effusions. There are minimal left basilar atelectatic changes.[ IMPRESSION: No active disease in the chest. ACT 112: Negative or not required by law. Electronically signed by: Pablo Hooks M.D. 01/20/2021 9:30 AM
[2021-01-20] MEDS: CLOPIDOGREL BISULFATE 75 MG TAB PO SCH (10:02)
[2021-01-20] MEDS: PANTOprazole 40 MG TAB PO SCH (10:02)
[2021-01-20] MEDS: ASPIRIN 81 MG ECTAB PO SCH (10:02)
[2021-01-20] MEDS: CHLORTHALIDONE 25 MG TAB PO SCH (10:02)
[2021-01-20] MEDS: METOPROLOL TARTRATE 25 MG TAB PO SCH ×2 (10:02→20:22)
[2021-01-20] MEDS: CALCITRIOL 0.25 MCG CAPSULE PO SCH (10:02)
[2021-01-20] MEDS: POTASSIUM CHLORIDE CRTAB 20 MEQ TABCR PO SCH ×2 (10:06→17:30)
[2021-01-20] MEDS: DAPTOmycin 675 MG in SYRINGE 0 ML IV SCH (11:13)
[2021-01-20] MEDS: GENTAMICIN SULFATE 0.1% CR 15 GM TUBE EXT SCH (11:14)
[2021-01-20] MEDS: ADVANCED PROBIOTIC 1250 MG CAPSULE PO SCH (11:14)
--- NOTE | 2021-01-20 12:16 | Critical Care Progress Note ---
Date of Service January 20, 2021 Assessment & Plan (1) Atherosclerosis of [place] artery of lower extremity with ulceration of foot: --Atherosclerosis of the [place] artery of the right lower extremity with ulcerations of the foot S/p right femoral to posterior tibial prosthetic bypass on 01/19/2021 Continue with aspirin, Plavix and statin Monitor H&H and blood pressure --Right lower extremity cellulitis/osteomyelitis VRE growing in the wound Continue with daptomycin --Hypertension Continue with blood pressure medications -- Diabetes type 1 Continue with ICU hypoglycemia protocol Keep sugars between 140-180 Patient has insulin pump. Needs diabetic education --CKD Monitor BUNs/creatinine Avoid nephrotoxic medication --Hypothyroidism Continue with levothyroxine --COPD Significant smoking history in the past Would recommend follow-up with outpatient pulmonology to do PFTs --Prophylaxis VTE: On hold --> resume heparin once cleared by surgery GI: Protonix Lines: Left radial Diet: Cardiorenal Plan: In/out: +573, urine output 3102 Can discontinue the left radial Wound culture does not show any signs of Pseudomonas. His previous cultures were positive. Currently it is growing VRE Continue with daptomycin, would recommend monitoring CPK. Duration of antib iotics will be deferred to primary care. DC cefepime Patient hemodynamically stable to be downgraded to a medical floor Please note the above document was generated using voice recognition software. It may contain grammatical, syntax or spelling errors.Any formal questions or concerns about the content, text or information contained within the body of this dictation should be directly addressed to the provider for clarification. (2) Osteomyelitis: (3) Diabetic foot ulcer: (4) PAD (peripheral artery disease): (5) COPD (chronic obstructive pulmonary disease): Admission and Anticipated Discharge Date Admission Date: January 13, 2021 Subjective Patient seen and examined at bedside. No acute distress, no adverse events overnight. Denies any abdominal pain. Mild nauseous in the morning which has resolved. He did have breakfast. No shortness of breath, no chest pain, no headache, no dizziness. Denies any pain in the lower extremity Review of Systems Review of Systems: All systems reviewed & are unremarkable except as noted in Subjective Physical Exam Physical Exam: Constitutional: No acute distress HEENT: EOMI, PERRLA Respiratory system: Good air entry bilaterally, no wheeze, no rhonchi, no crackl es CVS: S1-S2 positive, no murmurs or gallops Abdomen: Soft, nontender, nondistended, positive bowel sounds x4 Extremities: +2 pulses bilaterally radialis, +1 pulses bilateral DP, no cyanosis, +1 ankle edema, dressing in place bilateral Neuro: Awake alert oriented x3 Psych: Normal mood and affect G/U: No Rodgers Skin: no rashes, warm and dry Lymphatic: no cervical or axillary lymphadenopathy Results & Data Results & Data ([facility]) Vital Signs (Past 12 Hours) Vital Signs Temp Pulse Resp BP Pulse Ox 01/20/21 08:00 80 01/20/21 05:00 85 17 97 01/20/21 04:48 81 17 136/66 100 01/20/21 04:18 76 26 H 136/54 L 98 01/20/21 04:05 36.6 C 01/20/21 04:00 77 98 01/20/21 03:48 78 16 135/55 L 97 01/20/21 03:19 76 22 124/49 L 96 01/20/21 03:00 78 14 97 01/20/21 02:48 78 12 115/47 L 97 01/20/21 02:18 74 14 145/45 H 97 01/20/21 02:00 77 16 93 01/20/21 01:48 76 12 137/54 L 98 01/20/21 01:18 76 119/46 L 98 01/20/21 01:00 77 10 L 99 01/20/21 00:48 78 112/54 L 98 01/20/21 00:31 77 01/20/21 00:18 81 22 123/71 98 01/20/21 05:15 01/20/21 05:15 Coding Level of Care Code 05642 Subseq Hosp Care Lvl 3 Diagnoses Atherosclerosis of [place] artery of lower extremity with ulceration of foot I70.25; L97.509 Osteomyelitis M86.9 Laterality: right Osteomyelitis location: foot Osteomyelitis type: unspecified type Diabetic foot ulcer E10.621; L97.412 Diabetes mellitus type: type 1 Diabetic foot ulcer location: heel Laterality: right Non-pressure ulcer stage: with fat layer exposed PAD (peripheral artery disease) I73.9 COPD (chronic obstructive pulmonary disease) J44.9 (1) Osteomyelitis Laterality: right Osteomyelitis location: foot Osteomyelitis type: unspecified type Qualified Code(s): M86.9 - Osteomyelitis, unspecified (2) Diabetic foot ulcer Diabetes mellitus type: type 1 Diabetic foot ulcer location: heel Laterality: right Non-pressure ulcer stage: with fat layer exposed Qualified Code(s): E10.621 - Type 1 diabetes mellitus with foot ulcer; L97.412 - Non- pressure chronic ulcer of right heel and midfoot with fat layer exposed
--- NOTE | 2021-01-20 12:54 | Surgery Progress Note ---
Date of Service January 20, 2021 Assessment & Plan (1) Atherosclerosis of [place] artery of lower extremity with ulceration of foot: Clinically, doppler signals are makedly decreased from post op. Not sure when the change occurred. Will image graft for patency. Admission and Anticipated Discharge Date Admission Date: January 13, 2021 Subjective No real complaints today Physical Exam Physical Exam: dressings intact Constitutional: WD/WN, vitals as above Cardiovascular: weak doppler right foot Results & Data ([facility]) Vital Signs (Past 12 Hours) Vital Signs Temp Pulse Resp BP Pulse Ox 01/20/21 08:00 80 01/20/21 05:00 85 17 97 01/20/21 04:48 81 17 136/66 100 01/20/21 04:18 76 26 H 136/54 L 98 01/20/21 04:05 36.6 C 01/20/21 04:00 77 98 01/20/21 03:48 78 16 135/55 L 97 01/20/21 03:19 76 22 124/49 L 96 01/20/21 03:00 78 14 97 01/20/21 02:48 78 12 115/47 L 97 01/20/21 02:18 74 14 145/45 H 97 01/20/21 02:00 77 16 93 01/20/21 01:48 76 12 137/54 L 98 01/20/21 01:18 76 119/46 L 98 01/20/21 01:00 77 10 L 99
[2021-01-20] MEDS ORDERED: INSULIN REGULAR 250 UNITS in SODIUM CHLORIDE 0.9% 247.5 ML IV SCH (15:15)
--- NOTE | 2021-01-20 15:16 | Pharmacy Report ---
Pharmacy Glycemic Short Note 2 - Date of Service January 20, 2021 - Glycemic Short BSG Results (Last 24 hours): 01/19/21 01/19/21 01/19/21 15:52 17:04 17:40 Glucose POC Glucose 104 H 79 157 H 01/19/21 01/19/21 01/19/21 19:00 19:52 23:56 Glucose 181 H POC Glucose 141 H 203 H 01/20/21 01/20/21 01/20/21 00:01 05:15 07:28 Glucose 226 H POC Glucose 219 H 224 H 01/20/21 01/20/21 01/20/21 11:18 11:20 14:35 Glucose POC Glucose 317 H* 338 H* 353 H* OUTPATIENT ANTIDIABETIC REGIMEN: * Insulin pump (1.3 units/hr basal, CF 40, CR 8) * A1C: 8.6% 11-01-20 ASSESSMENT: * Per ICU provider pump malfunctioned overnight (BSG reading too low leading to reduced insulin doses). Unclear how long this was happening, but BSGs were in the 200s this morning. * The pump was turned off around ~0700 per ICU provider and basal bolus ordered were entered for ~0730 using his pump parameters as a guide. Unfortunately BSGs were elevated to the 300s at lunch and again on repeat despite tightening of NovoLog. At that time it was discussed with the ICU provider to start a low dose insulin infusion. PLAN FOR INPATIENT GLYCEMIC CONTROL: * Hold outpatient oral diabetes medications * Starting IV insulin infusion at 2 units/hr * Goal Range 140 - 180 mg/dl * In the critical care setting, continuous IV insulin infusion has been shown to be the best method for achieving glycemic targets. * Bolus insulin * NovoLog per scale ACHS or Q6hrs while NPO * Nutritional / Prandial insulin per carb ratio of 1 unit per 8 grams CHO consumed
--- NOTE | 2021-01-20 15:53 | Ultrasound Report ---
LIMITED ARTERIAL DUPLEX ULTRASOUND THE RIGHT LOWER EXTREMITY CLINICAL HISTORY: Recent right femoral posterior tibial bypass graft. Evaluate for graft patency. COMPARISON STUDY: September 2020 FINDINGS: A limited study was performed at the request of the referring clinician. The purpose of the study was to evaluate patency of a recently placed femoral posterior tibial bypass graft. The groin bandages were removed by the radiology nurses and then reapplied. The right bypass graft could not be visualized. IMPRESSION: 1. The right bypass graft could not be visualized, and is therefore presumably occluded. If this find ing is inconsistent with clinical findings, additional imaging such as a CT angiogram could be obtain ed in follow-up. ACT 112: Negative or not required by law. Electronically signed by: Pablo Hooks M.D. 01/20/2021 3:52 PM
--- NOTE | 2021-01-20 17:30 | Hospitalist Progress Note ---
Date of Service January 20, 2021 Assessment & Plan (1) Diabetic ulcer of ankle associated with type 1 diabetes mellitus: Patient is a very pleasant 65-year-old gentleman with a notable past medical history of type 1 diabetes complicated with multiple diabetic foot ulcers, peripheral arterial disease complicated by ischemic ulcers, chronic osteomyelitis, who was admitted for outpatient management of of R heel cellulitis around a preexisting ulcer and R great toe developing osteomyelitis. He underwent a femoral-posterior tibial artery bypass graft placement with Dr. Eason on 01/19/21 - unfortunately, today the graft appears to have occluded. Will confirm with a CTA of R LE. Given the concurrent osteomyelitis of the R toe (and metal hardware in digit) - suspect he is likely looking at a R LE amputation. 1. Diabetic Ulcer of the Right Heel with Superimposed Cellulitis -On review of HbA1c record over past several years, patient has been > 8 on nearly each check. Running above goal for quite some time has likely resulted in collateral blood vessel occlusion -Blood cultures negative History of Pseudomonas and MRSA on previous wound cultures Continue cefepime and daptomycin Wound care continue Santyl and gentamicin - Revascularization with Dr. Eason on 01/19/21. Graft appears to have occluded. Performing CTA of R LE to confirm. 2. Diabetic ulcer of right great toe, concern for underlying osteomyelitis -Status post debridement in the wound care clinic 01/13 -X-rays obtained in the ER show cortical changes are concerning for a mild, but developing osteomyelitis -CT right foot without contrast showing erosive change along the plantar and medial base of the first distal phalanx, suspicious for osteomyelitis -patient does have a screw in this foot, and therefore is not a candidate for MRI -Antibiotics as above 3. Peripheral Vascular Disease Status post femoral-posterior tibial bypass graft on 01/19/[address] Eason - suspect graft failure as above Continue statin - Aspirin and plavix resumed in post-operative period 4. Hypokalemia, Hypomagnesemia - Repleted from 2.4 to 3.2 to 4.4, continue potassium chloride 5. Type 1 diabetes - Patient using his own insulin pump. - We will proceed with AC at bedtime blood sugar checks. - If needed, can consider pausing insulin pump and temporarily utilizing subcutaneous insulin Chronic medical problems Hypertension: Continue metoprolol, chlorthalidone GERD: Continue pantoprazole Hypokalemia: Continue potassium chloride 20 mEq twice daily supplementation CKD 3: Avoid nephrotoxic meds Code: FULL CODE Diet: CC DM2 Dispo: Med/surg PPX: Lovenox Admission and Anticipated Discharge Date Admission Date: January 13, 2021 Supervising Physician Co-Signing Physician Notes I personally examined the patient and verified all perez points of history and exam, discussed case, and agree with decision making with Dr Barker. No pain, but notes that unfortunately it appears his graft is occluded. He notes vascular surgery does not think anything else would be able to be done, and most likely he will need to have his foot amputated. Patient is remarkably at peace with this. We discussed further options including repeat imaging with CT, as well as trying to obtain phone opinion from other vascular surgeons at other facilities, but he notes overall he tends to believe that Dr. Eason is correct, and while he would prefer CT to have a better idea of what is going on, and less things really seem hopeful, he would not prefer us looking to transfer for other opinions. He is generally at peace with the idea that he may need an amputation, and mostly was concerned about postop infection from this. When discussing that managing his osteomyelitis may have led to amputation in the future anyway, given the severity and extensiveness of his osteomyelitis, and that that actually would help with the overall course of infection, he expresses good understanding. Fortunately he is not having much foot pain, he notes that he does not have much sensation there. Vitals noted, in general he is awake and alert pleasant no distress. HEENT normocephalic atraumatic mucous membranes moist. Breathing unlabored no accessory muscle use good effort. Right foot shows pallor and very slow if any capillary refill. He has no tracking erythema or crepitus. Diabetic/vascular insufficiency ulcer/foot infection/osteomyelitiscontinue daptomycin, he has had 7 days of coverage of cefepimefollow off of this for now, might need to be resumed but not clear that it well. While quite unfortunate that he may need an amputation because of vascular occlusion, it also would be quite beneficial in helping him with this osteomyelitis, that may not have been salvageable anyway. Peripheral arterial disease with acute occlusionsee discussion above. Unfortunately it is likely that nothing more can be done. CT angiogram ordered to help define the extent of it better for him, again he does not want us reaching out to facilities for phone opinions and less things really seem like they would be hopeful, he expresses agreement and understanding that likely his foot will need to be amputated. And simply is looking at it as another step. Uncontrolled type 1 diabeteson 01/19, educated extensively on "why to care" ("high sugars clog arteries"), and how to utilize postprandial glucose monitoring to "grade his work" as far as insulincarb matching. continue to adjust insulins and follow. He expresses good understanding Otherwise as above Subjective Today - nurse could not appreciate distal pulses on Doppler - lower extremity duplex was ordered and his graft could not be visualized. Concern for occlusion of graft was expressed to patient - he was accepting of the likely reality of amputation. Review of Systems Review of Systems: All systems reviewed & are unremarkable except as noted in HPI & below Physical Exam Constitutional: WD/WN, vitals as above cooperative; no acute distress Eyes: + anicteric sclerae ENMT: external ear and nose normal, oropharynx normal Neck: normal visual inspection and trachea midline Respiratory: normal respiratory effort, lungs clear to auscultation Cardiovascular: Rate/Rhythm: regular rate Heart Sounds: normal S1, normal S2 and + murmur (systolic ejection murmur ) Vessels: + abnormal peripheral pulses Extremities: + abnormal capillary refill (R LE cap refill diminished. Toes appear dusky) Gastrointestinal (Abdomen): normal bowel sounds, soft, nontender, no hepatosplenomegaly Skin: + ulcer and + erythema Psychiatric: A+Ox3, euthymic affect Results & Data Results & Data ([facility]) Vital Signs (Past 12 Hours) Vital Signs Temp Pulse Pulse Resp BP BP Pulse Ox 01/20/21 16:00 36.8 C 88 18 152/70 H 98 01/20/21 13:18 80 12 149/63 H 96 01/20/21 12:35 84 16 137/67 96 01/20/21 12:00 36.7 C 01/20/21 11:19 85 19 144/76 H 93 01/20/21 10:19 80 12 126/75 97 01/20/21 09:18 83 17 123/63 97 01/20/21 08:48 81 17 127/60 97 01/20/21 08:00 36.6 C 80 01/20/21 07:18 78 18 126/54 L 95 Resident Activity Tracking Resident Involvement: Resident Care Provided Care Provided: Adult Hospital Medicine
--- NOTE | 2021-01-20 18:46 | Billing Data ---
Date of Service January 20, 2021 Coding Level of Care Code 75435 Subseq Hosp Care Lvl 3
[2021-01-20] MEDS: ICU PROTOCOL FOR HYPERGLYCEMIA SCH (20:09)
[2021-01-20] MEDS: ATORVASTATIN 40 MG TAB PO SCH (20:22)
[2021-01-20] MEDS ORDERED: OPTIRAY 350 500ml IV ONE (22:41)
[2021-01-21] MEDS ORDERED: INSULIN REGULAR 250 UNITS in SODIUM CHLORIDE 0.9% 247.5 ML IV SCH ×2 (02:45→21:00)
[2021-01-21] MEDS: ONDANSETRON INJ 2 MG/ML 2 ML VIAL IV SCH ×4 (03:12→20:33)
[2021-01-21] MEDS: LEVOTHYROXINE SODIUM 175 MCG TABLET PO SCH (06:24)
--- NOTE | 2021-01-21 07:01 | CT Scan Report ---
CT OF THE RIGHT LOWER EXTREMITY WITHOUT CONTRAST AND CT ANGIOGRAPHY OF THE RIGHT LOWER QUADRANT EXTRE MITY CLINICAL HISTORY: Pulseless right lower extremity. Recent right femoral posterior tibial bypass graft . COMPARISON STUDY: Right lower extremity arterial doppler ultrasound January 20, 2021. CTA with bilateral lower extremity runoff January 02, 2020. TECHNIQUE: Unenhanced and arterial phase imaging of the right lower extremity was performed. Sagittal and coronal reconstructed reviewed as well as maximal intensity projections on an independent 3-D wo rkstation. Automated exposure control was utilized for the study. A dose lowering technique was util ized adhering to the principles of ALARA. FINDINGS: Mild rectal wall thickening is incidentally noted. No acute fracture within the right lower extremity is noted. Erosion at the base of the distal phalanx of the right first toe appear similar to prior CT of January 13, 2021. A dissection is noted within visualized portions of the right external il iac artery. Proximal aspect of dissection is not visualized on this exam. The dissection extends to t he level of the distal external iliac artery. The right common femoral artery is patent and mildly di lated. There is occlusion of the red cliff right superficial femoral artery. At most, there is trace dianna w within portions of this vessel. The right profunda is patent. Postoperative findings within the rig ht groin are noted with expected soft tissue gas. Note is made of a right femoral to posterior tibial bypass graft. This graft is occluded. Reconstitution of the red cliff vessels at the level of the dista l right superficial femoral artery is noted. Severe multifocal stenosis within the right popliteal, p osterior tibial, anterior tibial and dorsalis pedis vessels are noted. These vessels are patent howev er flow is diminished. IMPRESSION: 1. Occluded right femoral to posterior tibial bypass graft. 2. 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 Severe multifocal stenoses within the right calf vessels, includin g severe stenosis at the origin of the right anterior tibial artery and severe stenosis versus short segment occlusion of the proximal right posterior tibial artery just proximal to the insertion of the bypass graft. Right calf vessels patent however flow diminished. 3. Partially visualized dissection within the right external iliac artery. ACT 112: Negative or not required by law. Electronically signed by: Benji Oconnell M.D. 01/21/2021 6:59 AM
[2021-01-21] MEDS ORDERED: INSULIN GLARGINE SOLOSTAR 100 UNITS/ML 3 ML PEN SC ONE (07:30)
[2021-01-21 08:23] LABS: Basophils # (auto) 0.02 K/uL (0-0.2); Basophils % (auto) 0.2 %; Eosinophils # (auto) 0.17 K/uL (0-0.5); Eosinophils % (auto) 1.6 %; Hematocrit (blood only) 27.8 % (42-52); Hemoglobin 9.2 g/dL (14.0-18.0); Immature Granulocytes # (auto) 0.06 K/uL (0.00-0.02); Immature Granulocytes % (auto) 0.6 %; Lymphocytes % (auto) 15.8 %; Mean Corpuscular Hemoglobin 27.9 pg (25-34); Mean Corpuscular Hgb Conc 33.1 g/dL (32-36); Mean Corpuscular Volume 84.2 fL (80-100); Mean Platelet Volume 9.6 fL (7.4-10.4); Monocytes # (auto) 1.62 K/uL (0.11-0.59); Monocytes % (auto) 15.1 %; Neutrophils # (auto) 7.16 K/uL (1.4-6.5); Neutrophils % (auto) 66.7 %; Platelet Count 270 K/uL (130-400); RDW Coefficient of Variation 14.7 % (11.5-14.5); RDW Standard Deviation 45.9 fL (36.4-46.3); White Blood Count 10.73 K/uL (4.8-10.8)
--- NOTE | 2021-01-21 08:28 | Communication Note ---
Date of Service: January 21, 2021 Duplex and clinical exam showed occluded fem posterior tibial bypass. No other intervention is possible due to outflow disease. Choices that remain are debridement of the wound to see how extensive the necrosis is or a below the knee amputation.
[2021-01-21] MEDS: ADVANCED PROBIOTIC 1250 MG CAPSULE PO SCH (08:35)
[2021-01-21] MEDS: METOPROLOL TARTRATE 25 MG TAB PO SCH ×2 (08:35→20:32)
[2021-01-21] MEDS: ASPIRIN 81 MG ECTAB PO SCH (08:36)
[2021-01-21] MEDS: PANTOprazole 40 MG TAB PO SCH (08:36)
[2021-01-21] MEDS: CALCITRIOL 0.25 MCG CAPSULE PO SCH (08:36)
[2021-01-21] MEDS: CLOPIDOGREL BISULFATE 75 MG TAB PO SCH (08:36)
[2021-01-21] MEDS: CHLORTHALIDONE 25 MG TAB PO SCH (08:36)
[2021-01-21 08:37] LABS: Estimated Average Glucose 163 mg/dl; Hemoglobin A1C 7.3 % (4.5-5.6)
[2021-01-21] MEDS: GENTAMICIN SULFATE 0.1% CR 15 GM TUBE EXT SCH (08:37)
[2021-01-21] MEDS: POTASSIUM CHLORIDE CRTAB 20 MEQ TABCR PO SCH ×2 (08:40→18:06)
[2021-01-21 09:03] LABS: BUN Creatinine Ratio 21.7 (10-20); Calcium 8.6 mg/dl (8.5-10.1); Est GFR (Non-African American) 93.2 ml/min; Potassium 3.6 mmol/L (3.5-5.1)
[2021-01-21] MEDS: INSULIN ASPART 100 UNITS/ML 3 ML PEN SC SCH ×4 (09:08→20:30)
[2021-01-21 09:16] LABS: Phosphorus 1.2 mg/dl (2.5-4.9)
[2021-01-21] MEDS ORDERED: POTASSIUM PHOS 3 MMOL/1 ML INFUSION IV STA (09:24)
[2021-01-21] MEDS ORDERED: POTASSIUM PHOSPHATE 21 MMOL in SODIUM CHLORIDE 0.9% 500 ML IV ONE (10:15)
[2021-01-21] MEDS: ICU PROTOCOL FOR HYPERGLYCEMIA SCH (11:09)
[2021-01-21] MEDS: DAPTOmycin 675 MG in SYRINGE 0 ML IV SCH (11:34)
--- NOTE | 2021-01-21 11:43 | Pharmacy Report ---
Pharmacy Glycemic Short Note 2 - Date of Service January 21, 2021 - Glycemic Short BSG Results (Last 24 hours): 01/20/21 01/20/21 01/20/21 14:35 15:58 17:04 Glucose POC Glucose 353 H* 356 H* 342 H* 01/20/21 01/20/21 01/20/21 18:05 19:01 20:11 Glucose POC Glucose 391 H* 384 H* 353 H* 01/20/21 01/20/21 01/20/21 21:02 22:11 23:12 Glucose POC Glucose 346 H* 233 H 180 H 01/21/21 01/21/21 01/21/21 00:12 00:32 00:49 Glucose POC Glucose 135 H 120 H 129 H 01/21/21 01/21/21 01/21/21 01:21 02:21 03:31 Glucose POC Glucose 175 H 226 H 241 H 01/21/21 01/21/21 01/21/21 04:32 05:32 06:21 Glucose 160 H POC Glucose 227 H 217 H 01/21/21 01/21/21 01/21/21 06:29 07:34 07:48 Glucose POC Glucose 176 H 131 H 132 H 01/21/21 01/21/21 01/21/21 08:00 08:27 08:43 Glucose POC Glucose 143 H 125 H 145 H 01/21/21 01/21/21 01/21/21 09:04 09:46 10:47 Glucose POC Glucose 228 H 308 H* 293 H OUTPATIENT ANTIDIABETIC REGIMEN: * Insulin pump (1.3 units/hr basal, CF 40, CR 8) * A1C: 8.6% 11-01-20 ASSESSMENT: 01/21 * Patient now out of ICU. Unfortunately, his graft occluded and per Dr. Eason's note patient will require either debridement or amputation. Unclear which, or when either will occur. Patient is still ordered a diet at this time therefore do not believe surgery is imminent * Insulin drip started yesterday, but BSG's were better controlled overnight and drip was running at 2.9 units/hr this AM. Per Dr. Lucero ANDERSON to transition off of drip today * Discussed w Lillie Cerrato (community health educator) r/e pump issues - patient is very capable of using his pump, and the pump itself did not malfunction. However, his continuous glucose monitor (CGM) which does communicate with his pump was likely off due to fluid shifts/etc associated with surgery and other inpatient differences. CGM will still be appropriate outpatient, but should not be used in patient. The pump itself can still be used inpatient (when appropriate), however the patient will need to input the BSG's obtained via POC here instead of using CGM. Lillie felt the patient would be competent with this process * Will leave basal/bolus for now as surgery plans are not yet clear, but will attempt transition off of the insulin drip * Will give full daily dose of Lantus provided usually by his pump * Will start Novolog at pump settings 01/20 * Per ICU provider pump malfunctioned overnight (BSG reading too low leading to reduced insulin doses). Unclear how long this was happening, but BSGs were in the 200s this morning. * The pump was turned off around ~0700 per ICU provider and basal bolus ordered were entered for ~0730 using his pump parameters as a guide. Unfortunately BSGs were elevated to the 300s at lunch and again on repeat despite tightening of NovoLog. At that time it was discussed with the ICU provider to start a low dose insulin infusion. PLAN FOR INPATIENT GLYCEMIC CONTROL: * Transition off insulin drip - stopping at 1500 or earlier if BSG's controlled and insulin drip rate is low (see stop order for details) * Goal Range 140 - 180 mg/dL * Lantus 31 units SC this AM x1 * Bolus insulin * NovoLog per scale ACHS or Q6hrs while NPO with additional 0000, 0400 checks * Goal range 120-160 mg/dL * Correction factor: 40 mg/dL/unit * Carb ratio: 8 g CHO/unit
--- NOTE | 2021-01-21 15:47 | Orthopedic Consultation ---
Date of Consultation January 21, 2021 Assessment & Plan (1) Osteomyelitis: Prior x-rays CT scans and MRIs are reviewed. MRI the ankle suggests subtle early osteomyelitis of the calcaneus. There is evidence of osteomyelitis of the first toe interphalangeal joint and necrosis of the fifth toe. Vascular reconstruction has been attempted but unfortunately has not been successful. He can live with things where they are. I do not think that wound debridement is going to be useful as without adequate circulation there is not any option for soft tissue coverage or wound treatments that would give predictable healing. Given the dysvascular nature of the situation I would recommend a amputation and I think the most appropriate level would be below-knee. He would like some time to think about things. He has been seen by Dr. Nobles and Dr. Eason. I will be out of town next week. I would be happy to take care of Mr. Chowdhury's amputation the week of February 01 if it were medically possible for her to wait that long and if he chose to do so. If he chooses to proceed earlier or his medical condition necessitates that then I would recommend proceeding sooner. If he wishes for me to help him please arrange to have him see me in my office the week of February 01. Present on Admission?: Yes (2) Diabetic foot ulcer: (3) PVD (peripheral vascular disease): History of Present Illness Attending Physician: Robert Crews DO History of Present Illness Mr. Chowdhury is known to me from outpatient treatment. He has had a wound on his right foot for nearly a year. He has been seen in the wound clinic and treated. He is recently been seen and evaluated by Dr. Eason and had a femoropopliteal bypass done several days ago. It worked initially but has since occluded. I was consulted to see him regarding the possibility of wound debridement or amputation. I have spoken with Dr. Eason. Allergies Allergy/AdvReac Type Severity Reaction Status Date / Time No Known Allergies Allergy Unknown Verified 01/13/21 18:33 Home Medications Medication Instructions Recorded Confirmed Type aspirin 81 mg tablet,delayed 81 mg PO QAM tab 05/10/18 01/13/21 History release clopidogrel [Plavix] 1 tab PO QAM 11/09/18 01/13/21 History metoprolol tartrate 25 mg tablet 12.5 mg PO BID #90 tab 12/31/19 01/13/21 Rx pantoprazole 40 mg tablet,delayed 40 mg PO QAM #30 tab 04/27/20 01/13/21 Rx release calcitriol [Rocaltrol] 0.25 mcg PO QAM 06/17/20 01/13/21 History levothyroxine 175 mcg PO QAM 11/16/20 01/13/21 History acetaminophen [Tylenol Extra 1,000 mg PO Q6 PRN 11/18/20 01/13/21 History Strength] atorvastatin 80 mg tablet 80 mg PO HS #90 tab 11/25/20 01/13/21 Rx gentamicin 0.1 % topical ointment 1 applic TOPICAL ONCE 42 Days #30 g 11/25/20 01/13/21 Rx chlorthalidone 25 mg PO QAM 12/23/20 01/13/21 History oxycodone 5 mg PO TID PRN 12/23/20 01/13/21 History doxycycline hyclate 100 mg tablet 100 mg PO BID 14 Days #28 tab 01/04/21 01/13/21 Rx potassium chloride 20 meq PO BID 01/13/21 01/13/21 History insulin aspart U-100 100 unit/mL 60 unit SQ UD #20 ml 01/14/21 Rx subcutaneous solution Patient History Medical History Aortic stenosis s/p porcine valve replacement (2015) with CABG x 1 CAD (coronary artery disease) s/p CABG x 1 (2015) Chronic renal disease, stage 3, moderately decreased glomerular filtration rate (GFR) between 30-59 mL/min/1.[address] Lerner Diabetes mellitus type 1 Diabetic autonomic neuropathy associated with type 1 diabetes mellitus Diabetic nephropathy associated with type 1 diabetes mellitus Dyslipidemia GERD (gastroesophageal reflux disease) Hypertension Hypothyroidism Insulin pump in place Nephrolithiasis Osteoarthritis Osteoporosis PAD (peripheral artery disease) Proliferative diabetic retinopathy associated with type 1 diabetes mellitus PVD (peripheral vascular disease) s/p B/L iliac artery stents (2014), R common/external iliac (2017), R common femoral endarterectomy (11/2018) with bovine patch. Left femoral to PT composite bypass graft (06/2020) Surgical History H/O cataract extraction R/L H/O endarterectomy R common femoral (11/2018) History of ankle surgery Left ankle (hardware since removed) History of aortic valve replacement 2016 ([facility] [place]) History of arterial bypass of lower extremity Left femoral to PT composite bypass graft (06/2020) History of cardiac cath 2016 > no stents (subsequent CABG with AVR in 2015) History of carpal tunnel release R/L History of colonoscopy History of coronary artery bypass graft CABG x1 + AVR (2015) History of esophagogastroduodenoscopy (EGD) History of myringotomy History of open reduction and internal fixation (ORIF) procedure LLE () History of skin graft Split Thickness Skin Graft of Left Lateral Ankle (11/18/20): LMA#5, atraumatic x1 at [facility] History of tonsillectomy History of tooth extraction History of umbilical hernia repair Hx of surgical procedure Left Leg Wound Debridement and Irrigation S/P femoropopliteal bypass surgery S/P insertion of iliac artery stent B/L iliac stent placement (2014) 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 Family History Brother Family history of diabetes mellitus Sister Family history of diabetes mellitus Mother Family history of diabetes mellitus Grandmother (Maternal) Family history of diabetes mellitus Uncle Family hx of colon cancer Colorectal cancer Father Family history of esophageal cancer Sister Family history of diabetes mellitus Other No family history of adverse response to anesthesia Denies family history of Ovarian cancer Prostate cancer Myocardial infarction Breast cancer Social History Smoking Status: Former smoker Tobacco Type: Cigarettes and Smokeless Tobacco (Dip or Chew) Cigarettes Per Day: QUIT 15 YEARS AGO. 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 ([id number], roughly) caffeine: Yes (coffee, rarely ) during the past year weight has: remained stable Dental Care, Regularly: No Physical Activity Frequency: 1-2 Times per Week Seatbelt Use: always Sunscreen Use: No Assistive Devices: Walker Assistive Devices Comment: Myrna shoe for right foot. Cam Boot for left foot Physical Exam Physical Exam: There is black eschar consistent with vascular necrosis involving the dorsal medial and plantar aspects of the fifth toe. There is a 1 cm ulceration to the bone on the medial aspect of the first toe interphalangeal joint. There is bone palpable within the wound. Pedal pulses are not palpable. Ankle movement is limited and sensation is diminished to absent. There is a healing incision without any evidence of necrosis on the medial aspect of the calf. There is no necrosis of the calf. There is a large necrotic ischemic wound on the posterior medial heel 8 to 10 cm superior to inferior and 6 to 8 cm medial to lateral. Medially this goes deeper down into the subcutaneous fat. Bone is not palpable. There is minimal swelling and no surrounding erythema or substantial drainage. Results & Data ([facility]) Vital Signs (Past 12 Hours) Vital Signs Temp Pulse Resp BP Pulse Ox 01/21/21 07:04 37 C 77 18 121/69 99 Laboratory Results Laboratory Results WBC 10.73 K/uL (4.8-10.8) 01/21/21 06:56 RBC 3.30 M/uL (4.7-6.1) L 01/21/21 06:56 Hgb 9.2 g/dL (14.0-18.0) L 01/21/21 06:56 Hct 27.8 % (42-52) L 01/21/21 06:56 MCV 84.2 fL (80-100) 01/21/21 06:56 MCH 27.9 pg (25-34) 01/21/21 06:56 MCHC 33.1 g/dL (32-36) 01/21/21 06:56 RDW Std Deviation 45.9 fL (36.4-46.3) 01/21/21 06:56 RDW Coeff of Chan 14.7 % (11.5-14.5) H 01/21/21 06:56 Plt Count 270 K/uL (130-400) 01/21/21 06:56 MPV 9.6 fL (7.4-10.4) 01/21/21 06:56 Immature Gran % (Auto) 0.6 % 01/21/21 06:56 Neut % (Auto) 66.7 % 01/21/21 06:56 Lymph % (Auto) 15.8 % 01/21/21 06:56 Schley % (Auto) 15.1 % 01/21/21 06:56 Eos % (Auto) 1.6 % 01/21/21 06:56 Baso % (Auto) 0.2 % 01/21/21 06:56 Neut # (Auto) 7.16 K/uL (1.4-6.5) H 01/21/21 06:56 Lymph # (Auto) 1.70 K/uL (1.2-3.4) 01/21/21 06:56 Schley # (Auto) 1.62 K/uL (0.11-0.59) H 01/21/21 06:56 Eos # (Auto) 0.17 K/uL (0-0.5) 01/21/21 06:56 Baso # (Auto) 0.02 K/uL (0-0.2) 01/21/21 06:56 Immature Gran # (Auto) 0.06 K/uL (0.00-0.02) H 01/21/21 06:56 Ovalocytes 1+ 01/20/21 05:15 ESR 92 mm/hr (0-20) H 01/14/21 06:07 PT 10.8 Seconds (9.0-12.0) 01/13/21 16:35 INR 1.1 (0.9-1.1) 01/13/21 16:35 APTT 24.7 Seconds (21.0-31.0) 01/13/21 16:35 PTT Ratio 0.9 01/13/21 16:35 Sodium 137 mmol/L (136-145) 01/21/21 06:21 Potassium 3.6 mmol/L (3.5-5.1) 01/21/21 06:21 Chloride 103 mmol/L (98-107) 01/21/21 06:21 Carbon Dioxide 28 mmol/L (21-32) 01/21/21 06:21 Anion Gap 6.0 (3-11) 01/21/21 06:21 BUN 18 mg/dl (7-18) 01/21/21 06:21 Creatinine 0.84 mg/dl (0.6-1.4) 01/21/21 06:21 Est Cr Clr Drug Dosing 96.0 ml/min 01/21/21 06:21 Est GFR ( Amer) 108.0 ml/min 01/21/21 06:21 Est GFR (Non-Af Amer) 93.2 ml/min 01/21/21 06:21 BUN/Creatinine Ratio 21.7 (10-20) H 01/21/21 06:21 Glucose 160 mg/dl (70-99) H 01/21/21 06:21 POC Glucose 276 mg/dl (70-99) H 01/21/21 14:47 Estimat Average Glucose 163 mg/dl 01/21/21 06:16 Hemoglobin A1c 7.3 % (4.5-5.6) H 01/21/21 06:16 Lactate 1.3 mmol/L (0.4-2.0) 01/13/21 18:50 Calcium 8.6 mg/dl (8.5-10.1) 01/21/21 06:21 Phosphorus 1.2 mg/dl (2.5-4.9) L* D 01/21/21 06:21 Magnesium 2.1 mg/dl (1.8-2.4) 01/20/21 05:15 Total Bilirubin 1.4 mg/dl (0.2-1) H 01/13/21 16:35 AST 19 U/L (15-37) 01/13/21 16:35 ALT 16 U/L (12-78) 01/13/21 16:35 Alkaline Phosphatase 186 U/L (45-117) H 01/13/21 16:35 C-Reactive Protein 4.62 mg/dl (0-0.29) H 01/14/21 06:07 Total Protein 8.5 gm/dl (6.4-8.2) H 01/13/21 16:35 Albumin 3.4 gm/dl (3.4-5.0) 01/13/21 16:35 Globulin 5.1 gm/dl (2.5-4.0) H 01/13/21 16:35 Albumin/Globulin Ratio 0.7 (0.9-2) L 01/13/21 16:35 Procalcitonin < 0.05 ng/ml (0-0.5) 01/13/21 16:35 Nasal Screen MRSA (PCR) Negative (Negative) 01/19/21 18:45 Stl C. diff Tox B Gene Negative Cdiff Gene (Neg) 01/14/21 18:09 COVID-19 Eval Order CovFluRsv at [facility] 01/13/21 17:20 SARS-CoV-2 (PCR) NEGATIVE (Negative) 01/13/21 17:20 Influenza Type A (PCR) Negative (Neg) 01/13/21 17:20 Influenza Type B (PCR) Negative (Neg) 01/13/21 17:20 RSV (RT-PCR) Negative (Neg) 01/13/21 17:20 Blood Type A Positive 01/18/21 09:49 Antibody Screen NEGATIVE 01/18/21 09:49 Crossmatch See Detail 01/18/21 09:49 Impressions Foot X-Ray 01/13/21 17:01 XR foot RT 2V HISTORY: 65 years-old Male diabetic foot ulcer chronic right foot pain with diabetic foot ulcer COMPARISON: Foot radiographs 09/16/2020 TECHNIQUE: 2 views of the right foot FINDINGS: Soft tissue ulcerations of the heel measure up to approximately 2 cm. No acute fracture, or dislocation. Demineralized appearance of the bones with moderate multifocal osteoarthritis. Cannulated screw of the first digit using the distal interphalangeal joint is intact. Soft tissue swelling of the distal first digit. Subtle cortical irregularity/erosions involve the medial cortex of the first distal phalanx. Cortical thickening of the second through fifth metatarsals may reflect healed fracture deformities. Arterial calcifications. IMPRESSION: 1. Soft tissue swelling of the great toe with soft tissue ulcerations of the heel. 2. Mild cortical irregularity/lucency involves the medial aspect of the first distal phalanx which is new from the 09/16/2020 study suggestive of osteomyelitis. ACT 112: Negative or not required by law. The above report was generated using voice recognition software. It may contain grammatical, syntax or spelling errors. Electronically signed by: Alberto Armstrong M.D. 01/13/2021 5:[address] 01/13/21 21:13 CT SCAN OF THE RIGHT FOOT WITHOUT IV CONTRAST CLINICAL HISTORY: First toe infection. COMPARISON STUDY: Radiographs of the right foot dated 01/13/2021. MRI of the right forefoot dated 10/19/2020. TECHNIQUE: CT scan of the right foot is performed from the ankle to the base of the foot. Images are reviewed in the axial, sagittal, and coronal planes. IV contrast was not administered for this examination. Assessment of the first toe is significantly degraded by streak artifact from metallic hardware. A dose lowering technique was utilized adhering to the principles of ALARA. CT DOSE: 188.77 mGy.cm FINDINGS: The skeletal structures are heterogeneously osteopenic. No acute fracture is identified. There is postoperative change from fusion at the first interphalangeal joint with a cortical lag screw transfixing the joint. The orthopedic hardware appears intact. Question mild erosive change along the plantar and medial base of the first distal phalanx (axial image #253). There is overlying soft tissue infiltration and dermal thickening. Arthritic change is seen throughout the foot. Chronic posttraumatic deformity is suggested at the base of the fourth metatarsal. There is a small dorsal calcaneal enthesophyte. There is no evidence of Lisfranc injury. There is generalized atrophy of the regional musculature. Atherosclerotic calcification is noted in the regional arteries. The Achilles tendon is intact as imaged. A cutaneous ulceration is suggested in the dorsal heel. IMPRESSION: 1. No acute fracture is identified. 2. There is postoperative change in the first toe as above. 3. Suspect erosive change along the plantar and medial base of the first distal phalanx. These findings are suspicious for osteomyelitis. 4. There is soft tissue edema and dermal thickening identified in the first toe. Correlate clinically for evidence of cellulitis. 5. No organized fluid collection is seen to suggest abscess. 6. A cutaneous ulceration with surrounding cellulitis is suggested posterior to the calcaneus. Clinical correlation will be required. ACT 112: Negative or not required by law. Dictated: 01/14/2021 7:54 AM Transcribed: 01/14/2021 8:12 AM Keri [id number] [email or web address] Electronically signed by: Tae Pizarro M.D. 01/14/2021 8:19 AM Chest X-Ray 01/20/21 08:05 XR chest 1V portable CLINICAL HISTORY: Follow-up examination. COMPARISON STUDY: 07/31/2020 FINDINGS: There are postsurgical changes of a midline sternotomy and valvular replacement. The cardiac and mediastinal contours remain stable. There is no failure. There is no focal pulmonary consolidation. There are no pleural effusions. There are minimal left basilar atelectatic changes.[ IMPRESSION: No active disease in the chest. ACT 112: Negative or not required by law. Electronically signed by: Pablo Hooks M.D. 01/20/2021 9:30 AM Duplex Scan Lower Extremity Artery 01/20/21 12:47 LIMITED ARTERIAL DUPLEX ULTRASOUND THE RIGHT LOWER EXTREMITY CLINICAL HISTORY: Recent right femoral posterior tibial bypass graft. Evaluate for graft patency. COMPARISON STUDY: September 2020 FINDINGS: A limited study was performed at the request of the referring clinician. The purpose of the study was to evaluate patency of a recently placed femoral posterior tibial bypass graft. The groin bandages were removed by the radiology nurses and then reapplied. The right bypass graft could not be visualized. IMPRESSION: 1. The right bypass graft could not be visualized, and is therefore presumably occluded. If this finding is inconsistent with clinical findings, additional imaging such as a CT angiogram could be obtained in follow-up. ACT 112: Negative or not required by law. Electronically signed by: Pablo Hooks M.D. 01/20/2021 3:52 PM Lower Extremity CTA 01/20/21 21:48 CT OF THE RIGHT LOWER EXTREMITY WITHOUT CONTRAST AND CT ANGIOGRAPHY OF THE RIGHT LOWER QUADRANT EXTREMITY CLINICAL HISTORY: Pulseless right lower extremity. Recent right femoral posterior tibial bypass graft. COMPARISON STUDY: Right lower extremity arterial doppler ultrasound January 20, 2021. CTA with bilateral lower extremity runoff January 02, 2020. TECHNIQUE: Unenhanced and arterial phase imaging of the right lower extremity was performed. Sagittal and coronal reconstructed reviewed as well as maximal intensity projections on an independent 3-D workstation. Automated exposure control was utilized for the study. A dose lowering technique was utilized adhering to the principles of ALARA. FINDINGS: Mild rectal wall thickening is incidentally noted. No acute fracture within the right lower extremity is noted. Erosion at the base of the distal phalanx of the right first toe appear similar to prior CT of January 13, 2021. A dissection is noted within visualized portions of the right external iliac artery. Proximal aspect of dissection is not visualized on this exam. The dissection extends to the level of the distal external iliac artery. The right common femoral artery is patent and mildly dilated. There is occlusion of the [place] right superficial femoral artery. At most, there is trace flow within p ortions of this vessel. The right profunda is patent. Postoperative findings within the right groin are noted with expected soft tissue gas. Note is made of a right femoral to posterior tibial bypass graft. This graft is occluded. Reconstitution of the [place] vessels at the level of the distal right superficial femoral artery is noted. Severe multifocal stenosis within the right popliteal, posterior tibial, anterior tibial and dorsalis pedis vessels are noted. These vessels are patent however flow is diminished. IMPRESSION: 1. Occluded right femoral to posterior tibial bypass graft. 2. 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 Severe multifocal stenoses within the right calf vessels, including severe stenosis at the origin of the right anterior tibial artery and severe stenosis versus short segment occlusion of the proximal right posterior tibial artery just proximal to the insertion of the bypass graft. Right calf vessels patent however flow diminished. 3. Partially visualized dissection within the right external iliac artery. ACT 112: Negative or not required by law. Electronically signed by: Benji Oconnell M.D. 01/21/2021 6:59 AM (1) Osteomyelitis Laterality: right Osteomyelitis location: foot Osteomyelitis type: unspecified type Qualified Code(s): M86.9 - Osteomyelitis, unspecified (2) Diabetic foot ulcer Diabetes mellitus type: type 1 Diabetic foot ulcer location: heel Laterality: right Non-pressure ulcer stage: with fat layer exposed Qualified Code(s): E10.621 - Type 1 diabetes mellitus with foot ulcer; L97.412 - Non- pressure chronic ulcer of right heel and midfoot with fat layer exposed
--- NOTE | 2021-01-21 16:46 | Hospitalist Progress Note ---
Date of Service January 21, 2021 Assessment & Plan (1) Diabetic ulcer of ankle associated with type 1 diabetes mellitus: Patient is a very pleasant 65-year-old gentleman with a notable past medical history of type 1 diabetes complicated with multiple diabetic foot ulcers, peripheral arterial disease complicated by ischemic ulcers, chronic osteomyelitis, who was admitted for outpatient management of of R heel cellulitis around a preexisting ulcer and R great toe developing osteomyelitis. He underwent a femoral-posterior tibial artery bypass graft placement with Dr. Eason on 01/19/21 - unfortunately, CTA confirmed the graft appears to have occluded. Patient is willing to undergo below the knee amputation. Will continue IV Cefepime and Daptomycin until patient has BKA - although R foot does not appear to be gangrenous now, it will likely reach this point given degree of vessel occlusion. We will await to hear from Dr. Eason regarding when he is able to perform the amputation. 1. Diabetic Ulcer of the Right Heel with Superimposed Cellulitis -On review of HbA1c record over past several years, patient has been > 8 on nearly each check. Running above goal for quite some time has likely resulted in collateral blood vessel occlusion -Blood cultures negative History of Pseudomonas and MRSA on previous wound cultures Continue cefepime and daptomycin until patient undergoes BKA to minimize risk of sepsis ensuing from a gangrenous foot Revascularization with Dr. Eason on 01/19/21. Graft occluded. Plan to undergo BKA as above 2. Diabetic ulcer of right great toe, concern for underlying osteomyelitis -Status post debridement in the wound care clinic 01/13 -X-rays obtained in the ER show cortical changes are concerning for a mild, but developing osteomyelitis -CT right foot without contrast showing erosive change along the plantar and medial base of the first distal phalanx, suspicious for osteomyelitis -patient does have a screw in this foot, and therefore is not a candidate for MRI -Antibiotics as above - undergoing BKA as above 3. Peripheral Vascular Disease Status post femoral-posterior tibial bypass graft on 01/19/[address] Eason - unfortunately graft has occluded. Undergoing BKA as above. Continue statin -Continue Aspirin and plavix 4. Hypokalemia, Hypomagnesemia - Repleted from 2.4 to 3.2 to 4.4, continue potassium chloride 5. Type 1 diabetes - Patient using his own insulin pump. - We will proceed with AC at bedtime blood sugar checks. - If needed, can consider pausing insulin pump and temporarily utilizing subcutaneous insulin - HbA1c from today is 7.6 Chronic medical problems Hypertension: Continue metoprolol, chlorthalidone GERD: Continue pantoprazole Hypokalemia: Continue potassium chloride 20 mEq twice daily supplementation CKD 3: Avoid nephrotoxic meds Code: FULL CODE Diet: CC DM2 Dispo: Med/surg PPX: Lovenox Admission and Anticipated Discharge Date Admission Date: January 13, 2021 Supervising Physician Co-Signing Physician Notes I personally examined the patient and verified all perez points of history and exam, discussed case, and agree with decision making with Dr Barker. feeling ok. contemplating options, but overall feels like he knows that he needs this done. Vitals noted, in general he is awake and alert pleasant no distress. HEENT normocephalic atraumatic mucous membranes moist. Breathing unlabored no accessory muscle use good effort. He has no tracking erythema or crepitus of foot. Diabetic/vascular insufficiency ulcer/foot infection/osteomyelitiscontinue daptomycin, cefepime restarted since poor blood flow risk of gangrene. for amputation almost certainly. Peripheral arterial disease with acute occlusionsee discussion above. Unfortunately it is likely that nothing more can be done. see above. for amputation. Uncontrolled type 1 diabeteson 01/19, educated extensively on "why to care" ("high sugars clog arteries"), and how to utilize postprandial glucose monitoring to "grade his work" as far as insulincarb matching. continue to adjust insulins and follow. He expresses good understanding. reiterated this teaching today. Otherwise as above Subjective Patient is aware his graft has occluded and is amenable to undergoing below the knee amputation - he knew all along this could very well be the end result. Although sad, he is understanding. Fortunately, he is not in any pain. Review of Systems Review of Systems: All systems reviewed & are unremarkable except as noted in HPI & below Physical Exam Constitutional: WD/WN, vitals as above cooperative; no acute distress Eyes: + anicteric sclerae ENMT: external ear and nose normal, oropharynx normal Neck: normal visual inspection and trachea midline Respiratory: normal respiratory effort, lungs clear to auscultation Cardiovascular: Rate/Rhythm: regular rate Heart Sounds: normal S1, normal S2 and + murmur (systolic ejection murmur ) Vessels: + abnormal peripheral pulses Extremities: + abnormal capillary refill (R LE cap refill diminished. Toes appear dusky) Gastrointestinal (Abdomen): normal bowel sounds, soft, nontender, no hepatosplenomegaly Skin: + ulcer and + erythema Psychiatric: A+Ox3, euthymic affect Results & Data Results & Data ([facility]) Vital Signs (Past 12 Hours) Vital Signs Temp Pulse Pulse Resp BP BP Pulse Ox 01/21/21 16:00 37 C 82 18 144/79 H 98 01/21/21 07:04 37 C 77 18 121/69 99 Resident Activity Tracking Resident Involvement: Resident Care Provided Care Provided: Adult Hospital Medicine
--- NOTE | 2021-01-21 19:43 | Billing Data ---
Date of Service January 21, 2021 Coding Level of Care Code 60309 Subseq Hosp Care Lvl 3
[2021-01-21] MEDS: ATORVASTATIN 40 MG TAB PO SCH (20:32)
[2021-01-21] MEDS: CEFEPIME 2,000 MG in SYRINGE 0 ML IV SCH (20:33)
[2021-01-21] MEDS ORDERED: CEFEPIME 2,000 MG in SYRINGE 0 ML IV SCH (22:00)
[2021-01-22] MEDS: ONDANSETRON INJ 2 MG/ML 2 ML VIAL IV SCH ×4 (02:47→20:42)
[2021-01-22] MEDS: INSULIN ASPART 100 UNITS/ML 3 ML PEN SC SCH ×5 (04:06→20:53)
[2021-01-22] MEDS: LEVOTHYROXINE SODIUM 175 MCG TABLET PO SCH (04:07)
[2021-01-22] MEDS ORDERED: INSULIN ASPART 100 UNITS/ML 3 ML PEN SC SCH ×2 (07:30)
[2021-01-22] MEDS ORDERED: INSULIN GLARGINE SOLOSTAR 100 UNITS/ML 3 ML PEN SC SCH (09:00)
[2021-01-22] MEDS: INSULIN GLARGINE SOLOSTAR 100 UNITS/ML 3 ML PEN SC SCH (09:02)
[2021-01-22] MEDS: METOPROLOL TARTRATE 25 MG TAB PO SCH ×2 (09:16→20:45)
[2021-01-22] MEDS: CLOPIDOGREL BISULFATE 75 MG TAB PO SCH (09:16)
[2021-01-22] MEDS: ASPIRIN 81 MG ECTAB PO SCH (09:16)
[2021-01-22] MEDS: ADVANCED PROBIOTIC 1250 MG CAPSULE PO SCH (09:16)
[2021-01-22] MEDS: CALCITRIOL 0.25 MCG CAPSULE PO SCH (09:16)
[2021-01-22] MEDS: CHLORTHALIDONE 25 MG TAB PO SCH (09:17)
[2021-01-22] MEDS: PANTOprazole 40 MG TAB PO SCH (09:17)
[2021-01-22] MEDS: GENTAMICIN SULFATE 0.1% CR 15 GM TUBE EXT SCH (09:17)
[2021-01-22] MEDS: CEFEPIME 2,000 MG in SYRINGE 0 ML IV SCH ×2 (09:20→20:43)
--- NOTE | 2021-01-22 09:39 | Pharmacy Report ---
Pharmacy Glycemic Short Note 2 - Date of Service January 22, 2021 - Glycemic Short BSG Results (Last 24 hours): 01/21/21 01/21/21 01/21/21 09:46 10:47 11:46 POC Glucose 308 H* 293 H 272 H 01/21/21 01/21/21 01/21/21 12:44 13:50 14:47 POC Glucose 233 H 345 H* 276 H 01/21/21 01/21/21 01/21/21 17:16 20:19 22:00 POC Glucose 282 H 311 H* 225 H 01/21/21 01/21/21 01/22/21 23:00 23:15 00:15 POC Glucose 113 H 108 H 111 H 01/22/21 01/22/21 04:00 08:12 POC Glucose 207 H 276 H OUTPATIENT ANTIDIABETIC REGIMEN: * Insulin pump (1.3 units/hr basal, CF 40, CR 8) * A1C: 8.6% 11-01-20 ASSESSMENT: 01/22 * Pt has received 64+ units of insulin over the past 24hrs * 31 units of basal with Lantus * 33 units of bolus with NovoLog * PLUS IV insulin infusion average rate ~ 2 units/hr * AM fasting BSG elevated at 276 mg/dl --> will increase basal insulin * Pt required IV insulin infusion to be restarted last night when BSG > 300. Will tighten CF/CR and continue BSG checks/coverage Q4hrs. * Goal is to maintain BSGs <180 mg/dl (ideally <150 mg/dl) to prevent postop infectious complications * Will resume pump at DC but continue SQ basal bolus for inpatient use 01/21 * Patient now out of ICU. Unfortunately, his graft occluded and per Dr. Eason's note patient will require either debridement or amputation. Unclear which, or when either will occur. Patient is still ordered a diet at this time therefore do not believe surgery is imminent * Insulin drip started yesterday, but BSG's were better controlled overnight and drip was running at 2.9 units/hr this AM. Per Dr. Lucero ANDERSON to transition off of drip today * Discussed w Lillie Cerrato (elementary educator) r/e pump issues - patient is very capable of using his pump, and the pump itself did not malfunction. Ramos elena, his continuous glucose monitor (CGM) which does communicate with his pump was likely off due to fluid shifts/etc associated with surgery and other inpatient differences. CGM will still be appropriate outpatient, but should not be used in patient. The pump itself can still be used inpatient (when appropriate), however the patient will need to input the BSG's obtained via POC here instead of using CGM. Lillie felt the patient would be competent with this process * Will leave basal/bolus for now as surgery plans are not yet clear, but will attempt transition off of the insulin drip * Will give full daily dose of Lantus provided usually by his pump * Will start Novolog at pump settings / * Per ICU provider pump malfunctioned overnight (BSG reading too low leading to reduced insulin doses). Unclear how long this was happening, but BSGs were in the 200s this morning. * The pump was turned off around ~0700 per ICU provider and basal bolus ordered were entered for ~0730 using his pump parameters as a guide. Unfortunately BSGs were elevated to the 300s at lunch and again on repeat despite tightening of NovoLog. At that time it was discussed with the ICU provider to start a low dose insulin infusion. PLAN FOR INPATIENT GLYCEMIC CONTROL: * Basal insulin * increase Lantus 38 units SC AM * Bolus insulin: tighten parameters * NovoLog per scale ACHS or Q6hrs while NPO with additional 0000, 0400 checks * Goal range 120-150 mg/dL * Correction factor: 35 mg/dL/unit * Carb ratio: 7 g CHO/unit
[2021-01-22] MEDS: POTASSIUM CHLORIDE CRTAB 20 MEQ TABCR PO SCH ×2 (09:50→17:30)
[2021-01-22] MEDS: DAPTOmycin 675 MG in SYRINGE 0 ML IV SCH (11:30)
[2021-01-22] MEDS ORDERED: INSULIN HUMAN REGULAR PER UNIT 9 UNITS in SYRINGE 8.91 ML IV ONE (12:45)
--- NOTE | 2021-01-22 18:12 | Billing Data ---
Date of Service January 22, 2021 Coding Level of Care Code 39940 Subseq Hosp Care Lvl 3
--- NOTE | 2021-01-22 18:28 | Hospitalist Progress Note ---
Date of Service January 22, 2021 Assessment & Plan (1) Diabetic ulcer of ankle associated with type 1 diabetes mellitus: 65 yo man PMH DM1, PAD, multiple nonhealing leg wounds, chronic osteomyelitis admitted for outpatient management of of R heel cellulitis around a preexisting ulcer and R hallux osteomyelitis. He underwent a femoral-posterior tibial artery bypass graft that became occluded and now is facing amputation 1. Diabetic Ulcer of the Right Heel with Superimposed Cellulitis -On review of HbA1c record over past several years, patient has been > 8 on nearly each check. Running above goal for quite some time has likely resulted in collateral blood vessel occlusion -Blood cultures negative History of Pseudomonas and MRSA on previous wound cultures Continue cefepime and daptomycin until patient undergoes BKA to minimize risk of sepsis ensuing from a gangrenous foot Revascularization 01/19/21 initially successful but Graft occluded. Plan to undergo BKA as above 2. Diabetic ulcer of right great toe, concern for underlying osteomyelitis -Status post debridement in the wound care clinic 01/13 -X-rays obtained in the ER show cortical changes are concerning for a mild, but developing osteomyelitis -CT right foot without contrast showing erosive change along the plantar and medial base of the first distal phalanx, suspicious for osteomyelitis -Antibiotics as above - Planning for BKA, given risk of worsening gangrenous infection or limb infarction do not feel at all comfortable sending patient home prior to procedure 3. Peripheral Vascular Disease Status post femoral-posterior tibial bypass graft on 01/19/[address] Eason - unfortunately graft has occluded. Undergoing BKA as above. Continue statin -Continue Aspirin and plavix 4. Hypokalemia, Hypomagnesemia - Repleted from 2.4 to 3.2 to 4.4, continue potassium chloride as needed 5. Type 1 diabetes - Patient using his own insulin pump. - If needed, can consider pausing insulin pump and temporarily utilizing subcutaneous insulin - HbA1c 7.6 Chronic medical problems Hypertension: Continue metoprolol, chlorthalidone GERD: Continue pantoprazole Hypokalemia: Continue potassium chloride 20 mEq twice daily supplementation CKD 3: Avoid nephrotoxic meds Code: FULL CODE Diet: CC DM1 Dispo: Med/surg PPX: Lovenox Admission and Anticipated Discharge Date Admission Date: January 13, 2021 Supervising Physician Co-Signing Physician Notes I personally examined the patient and verified all perez points of history and exam, discussed case, and agree with decision making with Dr Garza. feeling ok. contemplating options, has many good questions. essentially ready to proceed with amputation but just wondering who/when. Vitals noted, in general he is awake and alert pleasant no distress. HEENT normocephalic atraumatic mucous membranes moist. Breathing unlabored no accessory muscle use good effort. He has no tracking erythema or crepitus of foot. sl better cap refill Diabetic/vascular insufficiency ulcer/foot infection/osteomyelitiscontinue daptomycin, cefepime restarted since poor blood flow risk of gangrene. for amputation almost certainly. question timing. Peripheral arterial disease with acute occlusionsee discussion above. Unfortunately it is likely that nothing more can be done. see above. for amputation. fortnately no acute deterioration Uncontrolled type 1 diabeteson 01/19, educated extensively on "why to care" ("high sugars clog arteries"), and how to utilize postprandial glucose monitoring to "grade his work" as far as insulincarb matching. continue to adjust insulins and follow. He expresses good understanding. reiterated this teaching 01/21. Otherwise as above Subjective Patient in high spirits today, has noticed a cramping pain in his calf on the right side particularly when he is trying to move the leg. That is only pain he feels at present. No questions other than when this procedure might happen Review of Systems Review of Systems: All systems reviewed & are unremarkable except as noted in HPI & below Physical Exam Constitutional: WD/WN, vitals as above cooperative and comfortable; no acute distress Eyes: PERRL, conjunctivae normal, anicteric sclerae ENMT: external ear and nose normal, oropharynx normal Neck: normal visual inspection and trachea midline Respiratory: normal respiratory effort, lungs clear to auscultation no respiratory distress and does not use accessory muscles Cardiovascular: Rate/Rhythm: regular rate Heart Sounds: normal S1, normal S2 and + murmur (systolic ejection murmur ) Vessels: + abnormal peripheral pulses Extremities: + abnormal capillary refill (R LE cap refill diminished. Toes appear dusky) Gastrointestinal (Abdomen): normal bowel sounds, soft, nontender, no hepatosplenomegaly Musculoskeletal: Head/Neck/Chest: normocephalic and head atraumatic Skin: Very sluggish capillary refill but improved from yesterday Neurologic: moves all extremities and awake Psychiatric: A+Ox3, euthymic affect Results & Data Results & Data ([facility]) Vital Signs (Past 12 Hours) Vital Signs Temp Pulse Pulse Pulse Resp BP BP 01/22/21 14:40 36.7 C 77 16 122/67 01/22/21 09:10 82 128/82 01/22/21 06:14 37.0 C 77 77 16 152/80 H Pulse Ox 01/22/21 14:40 99 01/22/21 09:10 01/22/21 06:14 95 Resident Activity Tracking Resident Involvement: Resident Care Provided Care Provided: Adult Hospital Medicine
[2021-01-22] MEDS: ATORVASTATIN 40 MG TAB PO SCH (20:43)
[2021-01-23] MEDS: ONDANSETRON INJ 2 MG/ML 2 ML VIAL IV SCH ×4 (02:03→21:25)
[2021-01-23] MEDS: LEVOTHYROXINE SODIUM 175 MCG TABLET PO SCH (05:41)
[2021-01-23 05:59] LABS: Basophils # (auto) 0.01 K/uL (0-0.2); Basophils % (auto) 0.1 %; Eosinophils # (auto) 0.37 K/uL (0-0.5); Eosinophils % (auto) 4.4 %; Hematocrit (blood only) 31.3 % (42-52); Immature Granulocytes # (auto) 0.04 K/uL (0.00-0.02); Immature Granulocytes % (auto) 0.5 %; Lymphocytes # (auto) 1.66 K/uL (1.2-3.4); Lymphocytes % (auto) 19.8 %; Mean Corpuscular Hemoglobin 27.6 pg (25-34); Mean Corpuscular Hgb Conc 31.9 g/dL (32-36); Mean Corpuscular Volume 86.5 fL (80-100); Mean Platelet Volume 9.5 fL (7.4-10.4); Monocytes # (auto) 1.15 K/uL (0.11-0.59); Monocytes % (auto) 13.7 %; Neutrophils # (auto) 5.16 K/uL (1.4-6.5); Neutrophils % (auto) 61.5 %; Platelet Count 317 K/uL (130-400); RDW Coefficient of Variation 14.4 % (11.5-14.5); RDW Standard Deviation 45.6 fL (36.4-46.3); Red Blood Count 3.62 M/uL (4.7-6.1); White Blood Count 8.39 K/uL (4.8-10.8)
[2021-01-23] MEDS ORDERED: INSULIN HUMAN REGULAR PER UNIT 9 UNITS in SYRINGE 8.91 ML IV ONE ×2 (08:30→12:30)
[2021-01-23] MEDS: ASPIRIN 81 MG ECTAB PO SCH (09:05)
[2021-01-23] MEDS: CLOPIDOGREL BISULFATE 75 MG TAB PO SCH (09:06)
[2021-01-23] MEDS: CHLORTHALIDONE 25 MG TAB PO SCH (09:06)
[2021-01-23] MEDS: CALCITRIOL 0.25 MCG CAPSULE PO SCH (09:07)
[2021-01-23] MEDS: ADVANCED PROBIOTIC 1250 MG CAPSULE PO SCH (09:07)
[2021-01-23] MEDS: METOPROLOL TARTRATE 25 MG TAB PO SCH ×2 (09:08→21:29)
[2021-01-23] MEDS: PANTOprazole 40 MG TAB PO SCH (09:08)
[2021-01-23] MEDS: CEFEPIME 2,000 MG in SYRINGE 0 ML IV SCH ×2 (09:11→21:26)
[2021-01-23] MEDS: INSULIN ASPART 100 UNITS/ML 3 ML PEN SC SCH ×3 (09:15→21:24)
[2021-01-23] MEDS: INSULIN GLARGINE SOLOSTAR 100 UNITS/ML 3 ML PEN SC SCH (09:17)
--- NOTE | 2021-01-23 11:31 | Pharmacy Report ---
Pharmacy Glycemic Short Note 2 - Date of Service January 23, 2021 - Glycemic Short BSG Results (Last 24 hours): 01/22/21 01/22/21 01/22/21 12:11 12:13 17:18 POC Glucose 437 H* 439 H* 161 H 01/22/21 01/23/21 01/23/21 20:40 08:10 08:11 POC Glucose 182 H 346 H* 322 H* OUTPATIENT ANTIDIABETIC REGIMEN: * Insulin pump (1.3 units/hr basal, CF 40, CR 8) * A1C: 8.6% 11-01-20 ASSESSMENT: 01/23: * Pt has received 86 units of SQ insulin + 9 units of IV insulin over the past 24hrs * 38 units of basal with Lantus * 48 units of bolus with NovoLog * BSGs [id number] mg/dl * AM fasting significantly elevated this morning at 346mg/dl. Verified with patient that he did NOT eat anything prior to this BSG (only had some sips of water). Lantus was increased significantly yesterday from 31 units to 38 units which should have yielded an improvement in fasting BSG. Likely Lantus is not lasting 24 hrs for patient? Will trial a dose of NPH at bedtime to combat AM hyperglycemia. Will continue Lantus in the AM as previously ordered. * Will loosen CF since additional basal will be on board and tighten CR for better post-prandial control. 01/22 * Pt has received 64+ units of insulin over the past 24hrs * 31 units of basal with Lantus * 33 units of bolus with NovoLog * PLUS IV insulin infusion average rate ~ 2 units/hr * AM fasting BSG elevated at 276 mg/dl --> will increase basal insulin * Pt required IV insulin infusion to be restarted last night when BSG > 300. Will tighten CF/CR and continue BSG checks/coverage Q4hrs. * Goal is to maintain BSGs <180 mg/dl (ideally <150 mg/dl) to prevent postop infectious complications * Will resume pump at DC but continue SQ basal bolus for inpatient use 01/21 * Patient now out of ICU. Unfortunately, his graft occluded and per Dr. Eason's note patient will require either debridement or amputation. Unclear which, or when either will occur. Patient is still ordered a diet at this time therefore do not believe surgery is imminent * Insulin drip started yesterday, but BSG's were better controlled overnight and drip was running at 2.9 units/hr this AM. Per Dr. Lucero ANDERSON to transition off of drip today * Discussed w Lillie Cerrato (bark skinner) r/e pump issues - patient is very capable of using his pump, and the pump itself did not malfunction. However, his continuous glucose monitor (CGM) which does communicate with his pump was likely off due to fluid shifts/etc associated with surgery and other inpatient differences. CGM will still be appropriate outpatient, but should not be used in patient. The pump itself can still be used inpatient (when appropriate), however the patient will need to input the BSG's obtained via POC here instead of using CGM. Lillie felt the patient would be competent with this process * Will leave basal/bolus for now as surgery plans are not yet clear, but will attempt transition off of the insulin drip * Will give full daily dose of Lantus provided usually by his pump * Will start Novolog at pump settings / * Per ICU provider pump malfunctioned overnight (BSG reading too low leading to reduced insulin doses). Unclear how long this was happening, but BSGs were in the 200s this morning. * The pump was turned off around ~0700 per ICU provider and basal bolus ordered were entered for ~0730 using his pump parameters as a guide. Unfortunately BSGs were elevated to the 300s at lunch and again on repeat despite tightening of NovoLog. At that time it was discussed with the ICU provider to start a low dose insulin infusion. PLAN FOR INPATIENT GLYCEMIC CONTROL: * Basal insulin * continue Lantus 38 units SC AM * add NPH 10 units SQ HS * Bolus insulin: tighten parameters * NovoLog per scale ACHS or Q6hrs while NPO with additional 0000, 0400 checks * Goal range 120-150 mg/dL * Correction factor: 40 mg/dL/unit * Carb ratio: 6 g CHO/unit
[2021-01-23] MEDS: POTASSIUM CHLORIDE CRTAB 20 MEQ TABCR PO SCH ×2 (11:42→17:51)
[2021-01-23] MEDS: DAPTOmycin 675 MG in SYRINGE 0 ML IV SCH (11:42)
[2021-01-23] MEDS: GENTAMICIN SULFATE 0.1% CR 15 GM TUBE EXT SCH (11:42)
--- NOTE | 2021-01-23 13:31 | Hospitalist Progress Note ---
Date of Service January 23, 2021 Assessment & Plan (1) Diabetic ulcer of ankle associated with type 1 diabetes mellitus: 65 yo man PMH DM1, PAD, multiple nonhealing leg wounds, chronic osteomyelitis admitted for outpatient management of of R heel cellulitis around a preexisting ulcer and R hallux osteomyelitis. He underwent a femoral-posterior tibial artery bypass graft that became occluded and now is facing amputation. Awaiting surgery. 1. Diabetic Ulcer of the Right Heel with Superimposed Cellulitis -On review of HbA1c record over past several years, patient has been > 8 on nearly each check. Running above goal for quite some time has likely resulted in collateral blood vessel occlusion -Blood cultures negative History of Pseudomonas and MRSA on previous wound cultures Continue cefepime and daptomycin until patient undergoes BKA to minimize risk of sepsis ensuing from a gangrenous foot Revascularization 01/19/21 initially successful but Graft occluded. Plan to undergo BKA as above. -Awaiting surgery. 2. Diabetic ulcer of right great toe, concern for underlying osteomyelitis -Status post debridement in the wound care clinic 01/13 -X-rays obtained in the ER show cortical changes are concerning for a mild, but developing osteomyelitis -CT right foot without contrast showing erosive change along the plantar and medial base of the first distal phalanx, suspicious for osteomyelitis -Antibiotics as above - Planning for BKA, given risk of worsening gangrenous infection or limb infarction do not feel at all comfortable sending patient home prior to procedure. -Awaiting surgery. 3. Peripheral Vascular Disease Status post femoral-posterior tibial bypass graft on 01/19/[address] Eason - unfortunately graft has occluded. Undergoing BKA as above. Continue statin -Continue Aspirin and plavix 4. Hypokalemia, Hypomagnesemia, hypophosphatemia - Repleted 5. Type 1 diabetes - Patient using his own insulin pump. - If needed, can consider pausing insulin pump and temporarily utilizing subcu taneous insulin - HbA1c 7.6 Chronic medical problems Hypertension: Continue metoprolol, chlorthalidone GERD: Continue pantoprazole Hypokalemia: Continue potassium chloride 20 mEq twice daily supplementation CKD 3: Avoid nephrotoxic meds Code: FULL CODE Diet: CC DM1 Dispo: Med/surg PPX: Lovenox Admission and Anticipated Discharge Date Admission Date: January 13, 2021 Supervising Physician Co-Signing Physician Notes I personally examined the patient and verified all perez points of history and exam, discussed case, and agree with decision making with Dr Francis. feeling ok. Resigned to needing an amputation, although he does note that nursing was able to get a faint pulse on Doppler. Still no pain. Vitals noted, in general he is awake and alert pleasant no distress. HEENT normocephalic atraumatic mucous membranes moist. Breathing unlabored no accessory muscle use good effort. He has no tracking erythema or crepitus of foot. Ongoing sl better cap refill Diabetic/vascular insufficiency ulcer/foot infection/osteomyelitiscontinue daptomycin, cefepime restarted since poor blood flow risk of gangrene. for amputation highly likelygiven that he did have a faint pulse on Doppler today, we will continue to follow closely, although given the severity of the bone infection downstream, and the severity of the vascular disease, I am not sure if faint flow would be enough to affect healing. Should he continue to have some degree of faint flow detectable tomorrow, will get more formal studies to better determine Peripheral arterial disease with acute occlusionsee discussion above. Does look slightly better in the acute setting, but in the greater context I am not sure if it will really change his situation. Uncontrolled type 1 diabeteson 01/19, educated extensively on "why to care" ("high sugars clog arteries"), and how to utilize postprandial glucose monitoring to "grade his work" as far as insulincarb matching. continue to adjust insulins and follow. He expresses good understanding. reiterated this teaching 01/21. Continue to titrate insulin Otherwise as above Subjective Mr. Chowdhury seen this AM, states no acute events overnight. States he's doing well despite the situation. Denies fevers, chills or night sweats. Review of Systems Constitutional: no fever, no chills and no sweats Respiratory: no dyspnea Cardiovascular: no chest pain and no palpitations Gastrointestinal: + diarrhea/loose stools; no nausea and no vomiting Physical Exam Physical Exam: General: Alert, oriented. No acute distress Skin: No noted rashes or bruises, bandaged wounds on right extremity. Psych: Appropriate mood and affect Neuro: No gross deficits HEENT: NC/AT Chest: Nontender to palpation. CV: RRR, Normal s1, s2. No murmurs appreciated Resp: Breath sounds clear bilaterally, no increased effort of breathing. No crackles/rhonchi/rales. Abdomen:Soft, nontender, nondistended. No guarding. No organomegaly appreciated. Extremities: Right extremity recently bandaged. Results & Data Results & Data ([facility]) Vital Signs (Past 12 Hours) Vital Signs Temp Pulse Pulse Resp BP Pulse Ox 01/23/21 12:24 36.6 C 72 16 159/79 H 99 01/23/21 07:02 36.9 C 75 16 144/79 H 96 Resident Activity Tracking Resident Involvement: Resident Care Provided Care Provided: Adult Hospital Medicine
[2021-01-23] MEDS ORDERED: INSULIN ASPART 100 UNITS/ML 3 ML PEN SC SCH ×3 (14:00→16:30)
[2021-01-23] MEDS ORDERED: ENOXAPARIN INJ 40 MG/0.4 ML SYR SQ ONE (17:27)
--- NOTE | 2021-01-23 17:29 | Billing Data ---
Date of Service January 23, 2021 Coding Level of Care Code 82695 Subseq Hosp Care Lvl 3
[2021-01-23] MEDS: INSULIN HUMAN NPH SC SCH (21:22)
[2021-01-23] MEDS: ATORVASTATIN 40 MG TAB PO SCH (21:26)
[2021-01-24] MEDS: ONDANSETRON INJ 2 MG/ML 2 ML VIAL IV SCH ×4 (02:00→20:24)
[2021-01-24] MEDS: LEVOTHYROXINE SODIUM 175 MCG TABLET PO SCH (05:40)
[2021-01-24 06:09] LABS: Basophils # (auto) 0.02 K/uL (0-0.2); Basophils % (auto) 0.2 %; Eosinophils % (auto) 5.4 %; Hematocrit (blood only) 33.2 % (42-52); Hemoglobin 10.7 g/dL (14.0-18.0); Immature Granulocytes # (auto) 0.04 K/uL (0.00-0.02); Immature Granulocytes % (auto) 0.4 %; Lymphocytes # (auto) 1.69 K/uL (1.2-3.4); Lymphocytes % (auto) 18.1 %; Mean Corpuscular Hemoglobin 27.5 pg (25-34); Mean Corpuscular Hgb Conc 32.2 g/dL (32-36); Mean Corpuscular Volume 85.3 fL (80-100); Mean Platelet Volume 9.5 fL (7.4-10.4); Monocytes # (auto) 1.16 K/uL (0.11-0.59); Monocytes % (auto) 12.4 %; Neutrophils # (auto) 5.92 K/uL (1.4-6.5); Neutrophils % (auto) 63.5 %; Platelet Count 378 K/uL (130-400); RDW Coefficient of Variation 14.3 % (11.5-14.5); RDW Standard Deviation 44.5 fL (36.4-46.3); Red Blood Count 3.89 M/uL (4.7-6.1); White Blood Count 9.33 K/uL (4.8-10.8)
[2021-01-24 06:39] LABS: BUN Creatinine Ratio 19.4 (10-20); Calcium 9.3 mg/dl (8.5-10.1); Creatinine Clr Calc Pharmacy 79.9 ml/min; Est GFR (African American) 91.3 ml/min; Est GFR (Non-African American) 78.8 ml/min; Potassium 3.4 mmol/L (3.5-5.1)
[2021-01-24] MEDS ORDERED: POTASSIUM CHLORIDE 10 MEQ TABCR PO STA (07:49)
[2021-01-24] MEDS: ASPIRIN 81 MG ECTAB PO SCH (08:40)
[2021-01-24] MEDS: CALCITRIOL 0.25 MCG CAPSULE PO SCH (08:41)
[2021-01-24] MEDS: CHLORTHALIDONE 25 MG TAB PO SCH (08:41)
[2021-01-24] MEDS: CLOPIDOGREL BISULFATE 75 MG TAB PO SCH (08:41)
[2021-01-24] MEDS: ENOXAPARIN INJ 40 MG/0.4 ML SYR SQ SCH (08:42)
[2021-01-24] MEDS: ADVANCED PROBIOTIC 1250 MG CAPSULE PO SCH (08:47)
[2021-01-24] MEDS: METOPROLOL TARTRATE 25 MG TAB PO SCH ×2 (08:47→20:24)
[2021-01-24] MEDS: POTASSIUM CHLORIDE CRTAB 20 MEQ TABCR PO SCH ×2 (08:49→17:57)
[2021-01-24] MEDS: PANTOprazole 40 MG TAB PO SCH (08:49)
[2021-01-24] MEDS: INSULIN ASPART 100 UNITS/ML 3 ML PEN SC SCH ×5 (09:03→21:26)
[2021-01-24] MEDS: INSULIN GLARGINE SOLOSTAR 100 UNITS/ML 3 ML PEN SC SCH (09:05)
[2021-01-24] MEDS ORDERED: POTASSIUM CHLORIDE CRTAB 20 MEQ TABCR PO STA (09:21)
[2021-01-24] MEDS: CEFEPIME 2,000 MG in SYRINGE 0 ML IV SCH ×2 (09:45→20:24)
--- NOTE | 2021-01-24 10:07 | Hospitalist Progress Note ---
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 He underwent a femoral-posterior tibial artery bypass graft that became occluded and now is facing amputation. Awaiting surgery. 1. Diabetic Ulcer of the Right Heel with Superimposed Cellulitis -On review of HbA1c record over past several years, patient has been > 8 on nearly each check. Running above goal for quite some time has likely resulted in collateral blood vessel occlusion -Blood cultures negative History of Pseudomonas and MRSA on previous wound cultures Continue cefepime and daptomycin until patient undergoes BKA to minimize risk of sepsis ensuing from a gangrenous foot Revascularization 01/19/21 initially successful but Graft occluded. Plan to undergo BKA as above. -Doppler notes bilateral pedal pulses present. Repeat arterial dopplers ordered given this new indication of ?revascularization. -Lactate elevated to 2.1. If no pulses present on repeat doppler will trend as an indication of necrosis necessitating the need for emergent treatment. -Awaiting surgery. 2. Diabetic ulcer of right great toe, concern for underlying osteomyelitis -Status post debridement in the wound care clinic 01/13 -X-rays obtained in the ER show cortical changes are concerning for a mild, but developing osteomyelitis -CT right foot without contrast showing erosive change along the plantar and medial base of the first distal phalanx, suspicious for osteomyelitis -Antibiotics as above - Planning for BKA, given risk of worsening gangrenous infection or limb infarction do not feel at all comfortable sending patient home prior to procedure. -Awaiting surgery. 3. Peripheral Vascular Disease Status post femoral-posterior tibial bypass graft on 01/19/[address] Eason - unfortunately graft has occluded. Undergoing BKA as above. Continue statin -Continue Aspirin and plavix 4. Hypokalemia, Hypomagnesemia, hypophosphatemia - Repleted 5. Type 1 diabetes - Patient using his own insulin pump. - If needed, can consider pausing insulin pump and temporarily utilizing subcutaneous insulin - HbA1c 7.6 Chronic medical problems Hypertension: Continue metoprolol, chlorthalidone GERD: Continue pantoprazole Hypokalemia: Continue potassium chloride 20 mEq twice daily supplementation CKD 3: Avoid nephrotoxic meds Code: FULL CODE Diet: CC DM1 Dispo: Med/surg PPX: Livianox Admission and Anticipated Discharge Date Admission Date: January 13, 2021 Supervising Physician Co-Signing Physician Notes I personally examined the patient and verified all perez points of history and exam, discussed case, and agree with decision making with Dr Francis. No foot pain. Okay with plans moving forward. Understands even if we are seeing some improvement in blood flow, he notes it may still be in his best interest to proceed with amputation given the degree of infection in his foot. Understands also that the situation is a little bit "working progress" Vitals noted, in general he is awake and alert pleasant no distress. HEENT normocephalic atraumatic mucous membranes moist. Breathing unlabored no accessory muscle use good effort. He has no tracking erythema or crepitus of foot. Ongoing sl better cap refill than before Diabetic/vascular insufficiency ulcer/foot infection/osteomyelitiscontinue daptomycin, cefepime restarted since poor blood flow risk of gangrene. for amputation highly likelygiven that he did have a faint pulse on Doppler the last 2 days as well as some improved capillary refill from the time of acute occlusion, we will continue to follow and repeat arterial Dopplers just to look for any major surprise improvementalthough in discussion with radiology I suspect that what we are seeing is a degree of flow from collaterals, and given the severity of the bone infection downstream, and the severity of the vascular disease, I am not sure if faint flow would be enough to affect healing. Continue to follow closely, would ask for surgical evaluation again this coming week Peripheral arterial disease with acute occlusionsee discussion above. Does look slightly better in the acute setting, but in the greater context I am not sure if it will really change his situation. See above Uncontrolled type 1 diabeteson 01/19, educated extensively on "why to care" ("high sugars clog arteries"), and how to utilize postprandial glucose monitoring to "grade his work" as far as insulincarb matching. continue to adjust insulins and follow. He expresses good understanding. reiterated this teaching 01/21. Continue to titrate insulin and follow glucoses Otherwise as above Subjective Mr. Chowdhury seen this AM, states no acute events overnight. States he's doing well despite the situation. Denies fevers, chills or night sweats. However he states the room sometimes feels hot and sometimes cold. Review of Systems Constitutional: no fever, no chills and no sweats Respiratory: no cough and no dyspnea Cardiovascular: no chest pain and no palpitations Gastrointestinal: no nausea, no vomiting, no constipation and no diarrhea/loose stools Physical Exam Physical Exam: General: Alert, oriented. No acute distress Psych: Appropriate mood and affect Neuro: No gross deficits HEENT: NC/AT Chest: Nontender to palpation. CV: RRR, Normal s1, s2. No murmurs appreciated Resp: Breath sounds clear bilaterally, no increased effort of breathing. No crackles/rhonchi/rales. Abdomen: Soft, nontender, nondistended. No guarding. No organomegaly appreciated. Extremities: Bandaged feet noted bilaterally with no bleeding or fluid seeping through. Results & Data Results & Data ([facility]) Vital Signs (Past 12 Hours) Vital Signs Temp Pulse Resp BP BP Pulse Ox 01/24/21 07:07 36.8 C 78 16 154/81 H 95 01/23/21 22:53 36.8 C 80 18 132/76 98 Resident Activity Tracking Resident Involvement: Resident Care Provided Care Provided: Adult Hospital Medicine
[2021-01-24] MEDS: POLYETHYLENE (MIRALAX) 17 GM PACK PO PRN (10:20)
--- NOTE | 2021-01-24 10:23 | Pharmacy Report ---
Pharmacy Glycemic Short Note 2 - Date of Service January 24, 2021 - Glycemic Short BSG Results (Last 24 hours): 01/23/21 01/23/21 01/23/21 12:05 12:07 17:06 Glucose POC Glucose 316 H* 322 H* 127 H 01/23/21 01/24/21 01/24/21 20:35 05:54 08:22 Glucose 95 POC Glucose 96 146 H OUTPATIENT ANTIDIABETIC REGIMEN: * Insulin pump (1.3 units/hr basal, CF 40, CR 8) * A1C: 8.6% 11-01-20 ASSESSMENT: 01/24 * Pt has received 110 units of insulin over the past 24hrs * 38 units of basal with Lantus + 10 units of basal with NPH * 44 units of bolus with NovoLog * 18 units of IV Regular insulin for severe hyperglycemia * Pt with SEVERE hyperglycemia yesterday morning and prior to lunch for unknown reason. Resolved by dinner time after repeated NovoLog dosing + 2x IV regular insulin boluses. * AM fasting BSG is in goal range this morning with the addition of NPH at bedtime. Pt with recurrent rise in BSG from HS to AM without CHO intake- may be john phenomenon; therefore, added low dose NPH at bedtime. * Current basal insulin orders are significantly increased compared to outpatient dosing. Will reduce back towards outpatient dosing now that NPH is on board 01/23: * Pt has received 86 units of SQ insulin + 9 units of IV insulin over the past 24hrs * 38 units of basal with Lantus * 48 units of bolus with NovoLog * BSGs [id number] mg/dl * AM fasting significantly elevated this morning at 346mg/dl. Verified with patient that he did NOT eat anything prior to this BSG (only had some sips of water). Lantus was increased significantly yesterday from 31 units to 38 units which should have yielded an improvement in fasting BSG. Likely Lantus is not lasting 24 hrs for patient? Will trial a dose of NPH at bedtime to combat AM hyperglycemia. Will continue Lantus in the AM as previously ordered. * Will loosen CF since additional basal will be on board and tighten CR for better post-prandial control. 01/22 * Pt has received 64+ units of insulin over the past 24hrs * 31 units of basal with Lantus * 33 units of bolus with NovoLog * PLUS IV insulin infusion average rate ~ 2 units/hr * AM fasting BSG elevated at 276 mg/dl --> will increase basal insulin * Pt required IV insulin infusion to be restarted last night when BSG > 300. Will tighten CF/CR and continue BSG checks/coverage Q4hrs. * Goal is to maintain BSGs <180 mg/dl (ideally <150 mg/dl) to prevent postop infectious complications * Will resume pump at DC but continue SQ basal bolus for inpatient use 01/21 * Patient now out of ICU. Unfortunately, his graft occluded and per Dr. Eason's note patient will require either debridement or amputation. Unclear which, or when either will occur. Patient is still ordered a diet at this time therefore do not believe surgery is imminent * Insulin drip started yesterday, but BSG's were better controlled overnight and drip was running at 2.9 units/hr this AM. Per Dr. Lucero ANDERSON to transition off of drip today * Discussed w Lillie Cerrato (healthcare educator) r/e pump issues - patient is very capable of using his pump, and the pump itself did not malfunction. However, his continuous glucose monitor (CGM) which does communicate with his pump was likely off due to fluid shifts/etc associated with surgery and other inpatient differences. CGM will still be appropriate outpatient, but should not be used in patient. The pump itself can still be used inpatient (when dara ropriate), however the patient will need to input the BSG's obtained via POC here instead of using CGM. Lillie felt the patient would be competent with this process * Will leave basal/bolus for now as surgery plans are not yet clear, but will attempt transition off of the insulin drip * Will give full daily dose of Lantus provided usually by his pump * Will start Novolog at pump settings 01/20 * Per ICU provider pump malfunctioned overnight (BSG reading too low leading to reduced insulin doses). Unclear how long this was happening, but BSGs were in the 200s this morning. * The pump was turned off around ~0700 per ICU provider and basal bolus ordered were entered for ~0730 using his pump parameters as a guide. Unfortunately BSGs were elevated to the 300s at lunch and again on repeat despite tightening of NovoLog. At that time it was discussed with the ICU provider to start a low dose insulin infusion. PLAN FOR INPATIENT GLYCEMIC CONTROL: * Basal insulin * decrease Lantus 35 units SC AM * continue NPH 10 units SQ HS * Bolus insulin: no change * NovoLog per scale ACHS or Q6hrs while NPO * Goal range 90-140 mg/dL * Correction factor: 35 mg/dL/unit * Carb ratio: 6 g CHO/unit
[2021-01-24] MEDS: DAPTOmycin 675 MG in SYRINGE 0 ML IV SCH (11:29)
[2021-01-24] MEDS ORDERED: INSULIN HUMAN REGULAR PER UNIT 9 UNITS in SYRINGE 8.91 ML IV ONE (12:30)
--- NOTE | 2021-01-24 17:55 | Billing Data ---
Date of Service January 24, 2021 Coding Level of Care Code 11742 Subseq Hosp Care Lvl 3
[2021-01-24] MEDS: ATORVASTATIN 40 MG TAB PO SCH (20:24)
[2021-01-24] MEDS: INSULIN HUMAN NPH SC SCH (21:27)
[2021-01-25] MEDS: ONDANSETRON INJ 2 MG/ML 2 ML VIAL IV SCH ×4 (02:05→20:52)
[2021-01-25] MEDS: LEVOTHYROXINE SODIUM 175 MCG TABLET PO SCH (06:10)
[2021-01-25 06:48] LABS: Basophils # (auto) 0.02 K/uL (0-0.2); Basophils % (auto) 0.2 %; Eosinophils # (auto) 0.31 K/uL (0-0.5); Eosinophils % (auto) 3.8 %; Hematocrit (blood only) 31.5 % (42-52); Hemoglobin 10.2 g/dL (14.0-18.0); Immature Granulocytes # (auto) 0.03 K/uL (0.00-0.02); Immature Granulocytes % (auto) 0.4 %; Lymphocytes # (auto) 1.18 K/uL (1.2-3.4); Lymphocytes % (auto) 14.6 %; Mean Corpuscular Hemoglobin 27.8 pg (25-34); Mean Corpuscular Hgb Conc 32.4 g/dL (32-36); Mean Corpuscular Volume 85.8 fL (80-100); Mean Platelet Volume 9.7 fL (7.4-10.4); Monocytes % (auto) 13.6 %; Neutrophils # (auto) 5.45 K/uL (1.4-6.5); Neutrophils % (auto) 67.4 %; Platelet Count 407 K/uL (130-400); RDW Coefficient of Variation 14.2 % (11.5-14.5); RDW Standard Deviation 44.6 fL (36.4-46.3); Red Blood Count 3.67 M/uL (4.7-6.1); White Blood Count 8.09 K/uL (4.8-10.8)
--- NOTE | 2021-01-25 08:25 | Ultrasound Report ---
RIGHT LOWER EXTREMITY ARTERIAL DOPPLER ULTRASOUND CLINICAL HISTORY: check for pulses COMPARISON STUDY: Right lower extremity arterial Doppler ultrasound and CTA of the right lower extre mity January 20, 2021. TECHNIQUE: Grayscale, color and duplex Doppler sonography of the arterial system of the right lower e xtremity was performed. FINDINGS: Extensive atherosclerotic plaque within the right lower extremity is noted. There is biphas ic flow within the proximal right common femoral artery. The [place] right superficial femoral artery is occluded. There may be minimal flow within the proximal aspect of the right femoral to posterior t ear tibial bypass graft. The remainder of the graft is occluded as shown on prior CT and ultrasound. There is dampened, monophasic flow within the right popliteal artery, likely through collaterals. The re is also dampened, monophasic flow within the right anterior tibial and dorsalis pedis vessels. No flow is identified within the distal right posterior tibial artery and the right peroneal artery. IMPRESSION: 1. Occluded right femoral to posterior tibial bypass graft. 2. Dampened, monophasic flow within the right popliteal artery, likely through collaterals. Monophasi c flow within the right anterior tibial and dorsalis pedis vessels. No flow identified within the dis [place] right posterior tibial artery and peroneal artery which could reflect slow flow or vessel occlusi on. ACT 112: Negative or not required by law. Electronically signed by: Benji Oconnell M.D. 01/25/2021 8:44 AM
[2021-01-25] MEDS: CEFEPIME 2,000 MG in SYRINGE 0 ML IV SCH ×2 (08:56→21:49)
[2021-01-25] MEDS: ENOXAPARIN INJ 40 MG/0.4 ML SYR SQ SCH (08:58)
[2021-01-25] MEDS: ASPIRIN 81 MG ECTAB PO SCH (08:59)
[2021-01-25] MEDS: CLOPIDOGREL BISULFATE 75 MG TAB PO SCH (08:59)
[2021-01-25] MEDS: ADVANCED PROBIOTIC 1250 MG CAPSULE PO SCH (08:59)
[2021-01-25] MEDS: POTASSIUM CHLORIDE CRTAB 20 MEQ TABCR PO SCH ×2 (08:59→18:15)
[2021-01-25] MEDS: METOPROLOL TARTRATE 25 MG TAB PO SCH ×2 (09:00→21:06)
[2021-01-25] MEDS: CHLORTHALIDONE 25 MG TAB PO SCH (09:00)
[2021-01-25] MEDS: CALCITRIOL 0.25 MCG CAPSULE PO SCH (09:00)
[2021-01-25] MEDS: PANTOprazole 40 MG TAB PO SCH (09:00)
[2021-01-25] MEDS: INSULIN GLARGINE SOLOSTAR 100 UNITS/ML 3 ML PEN SC SCH (09:01)
[2021-01-25] MEDS: INSULIN ASPART 100 UNITS/ML 3 ML PEN SC SCH ×4 (09:02→21:49)
--- NOTE | 2021-01-25 12:24 | Hospitalist Progress Note ---
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 Diabetic foot ulcers (Over of the Right Heel/right great toe): -On review of HbA1c record over past several years, patient has been regularly >8 -Running above goal for quite some time has likely resulted in collateral blood vessel occlusion -CT right foot without contrast showing erosive change along the plantar and medial base of the first distal phalanx, suspicious for osteomyelitis -Blood cultures negative -History of Pseudomonas and MRSA on previous wound cultures -Revascularization 01/19/21 initially successful but Graft occluded -Continue cefepime and daptomycin -Will attempt to get US guided IV in AM -To have follow-up with Dr. Soto following discharge and maintained on antibiotics until after surgery Peripheral Vascular Disease -Status post femoral-posterior tibial bypass graft on 01/19/[address] Eason - unfortunately graft has occluded -Continue statin -Continue Aspirin and plavix Hypokalemia, Hypomagnesemia, hypophosphatemia - Repleted Type 1 diabetes - Patient using his own insulin pump. - If needed, can consider pausing insulin pump and temporarily utilizing subcutaneous insulin - HbA1c 7.6 Chronic medical problems Hypertension: Continue metoprolol, chlorthalidone GERD: Continue pantoprazole Hypokalemia: Continue potassium chloride 20 mEq twice daily supplementation CKD 3: Avoid nephrotoxic meds Code: FULL CODE Diet: CC DM1 Dispo: Med/surg PPX: Lovenox Admission and Anticipated Discharge Date Admission Date: January 13, 2021 Supervising Physician Co-Signing Physician Notes Patient seen and examined with PGY-2 Dr. Salas. Agree with history, exam findings, assessment and plan of care as outlined. 65 year old male with history of DM1, PAD, multiple non-healing leg ulcers, chronic osteomyeltits admitted with right heel ulcer with cellulitis and R hallux osteomyelitis. s/p femoral-posterior tib bypass that has become acutely occluded. Awaiting amputation. No complaints today. He is unsure how he would like to procede with amputationwould prefer to have Dr. Soto do the surgery. Denies pain in the foot/leg. Reports that nurse was able to feel a pedal pulse today. 1. Right heel ulcer with superimposed cellulitis. Hx of pseudomonas and MRSA on prior wound cultures. Continue cefepime and daptomycin. Plans for BKA. Repeat arterial doppler of graft with occluded right femoral-posterior tibial bypass with some collateral flow. Do not think collaterals are likely sufficient. 2. Right great toe ulcer with osteomyelitis. Antibiotics=cefepime and dapto. 3. PAD. s/p bypass that is now occluded with insufficient collaterals. See above. Continue statin, asa, Plavix. Plan for BKA. Will likely happen as an outpatient. Dr. Salas discussed with Dr. Alves PA to set up outpatient follow up and preparation for scheduled BKA. 4. DM. insulin pump. A1C 7.6 on admission. 5. HTN. Continue home metoprolol and chlorthalidone. Dispo: Will plan for ultrasound guided IV and home IV antibiotics. Will need antibiotics until surgical intervention happens. Possible discharge tomorrow or Monday with plan for scheduled BKA with Dr. Soto. Subjective Feeling well, feels settled that he would prefer to have the amputation regardless of the minimal additional flow that his leg might show. Prefers Dr. Soto as his surgeon given their history together but recognizes that if it is needing to be emergently done that another provider may have to do it. Got his apartment set up to get a ramp so that he can get around after the amputation, but is uncertain when that will be finalized. Review of Systems Review of Systems: All systems reviewed & are unremarkable except as noted in Subjective Physical Exam Constitutional: WD/WN, vitals as above Eyes: PERRL, conjunctivae normal, anicteric sclerae Respiratory: normal respiratory effort, lungs clear to auscultation Auscultation: no crackles, no rales, no rhonchi and no wheezes Cardiovascular: Rate/Rhythm: regular rate and regular rhythm Heart Sounds: no gallop, no murmur and no cardiac rub Vessels: normal peripheral pulses; no JVD Extremities: no edema Skin: + wound (Multiple eschar wounds over toes; no tracking erythema, or fluctuance) Neurologic: PERRL, EOMI, accommodation nl, no face palsy, no dysarthria CN's II-XI intact bilaterally and moves all extremities Psychiatric: Orientation: alert and oriented x 3 Results & Data Results & Data ([facility]) Vital Signs (Past 12 Hours) Vital Signs Temp Pulse Resp BP Pulse Ox 01/25/21 07:22 36.8 C 75 16 146/85 H 96 Laboratory Results 01/25/21 01/25/21 01/25/21 Range/Units 08:31 06:02 01:07 WBC 8.09 (4.8-10.8) K/uL RBC 3.67 L (4.7-6.1) M/uL Hgb 10.2 L (14.0-18.0) g/dL Hct 31.5 L (42-52) % MCV 85.8 (80-100) fL MCH 27.8 (25-34) pg MCHC 32.4 (32-36) g/dL RDW Std Deviation 44.6 (36.4-46.3) fL RDW Coeff of Chan 14.2 (11.5-14.5) % Plt Count 407 H (130-400) K/uL MPV 9.7 (7.4-10.4) fL Immature Gran % (Auto) 0.4 % Neut % (Auto) 67.4 % Lymph % (Auto) 14.6 % [place] % (Auto) 13.6 % Eos % (Auto) 3.8 % Baso % (Auto) 0.2 % Neut # (Auto) 5.45 (1.4-6.5) K/uL Lymph # (Auto) 1.18 L (1.2-3.4) K/uL [place] # (Auto) 1.10 H (0.11-0.59) K/uL Eos # (Auto) 0.31 (0-0.5) K/uL Baso # (Auto) 0.02 (0-0.2) K/uL Immature Gran # (Auto) 0.03 H (0.00-0.02) K/uL POC Glucose 269 H 105 H (70-99) mg/dl 01/25/21 01/24/21 01/24/21 Range/Units 00:34 20:26 17:15 WBC (4.8-10.8) K/uL RBC (4.7-6.1) M/uL Hgb (14.0-18.0) g/dL Hct (42-52) % MCV (80-100) fL MCH (25-34) pg MCHC (32-36) g/dL RDW Std Deviation (36.4-46.3) fL RDW Coeff of Chan (11.5-14.5) % Plt Count (130-400) K/uL MPV (7.4-10.4) fL Immature Gran % (Auto) % Neut % (Auto) % Lymph % (Auto) % [place] % (Auto) % Eos % (Auto) % Baso % (Auto) % Neut # (Auto) (1.4-6.5) K/uL Lymph # (Auto) (1.2-3.4) K/uL [place] # (Auto) (0.11-0.59) K/uL Eos # (Auto) (0-0.5) K/uL Baso # (Auto) (0-0.2) K/uL Immature Gran # (Auto) (0.00-0.02) K/uL POC Glucose 76 108 H 151 H (70-99) mg/dl Medications Administered Current Inpatient Medications Acetaminophen (Acetaminophen 500 Mg Tab) 1,000 mg PO Q6H PRN PRN Reason: mild Pain Stop: 02/13/21 00:00 Al Hydrox/Mg Hydrox/Simethicone (Aluminum/Magnesium Susp 30 Ml Udc) 15 ml PO Q4H PRN PRN Reason: Dyspepsia Stop: 02/12/21 22:44 Aspirin (Aspirin 81 Mg Ectab) 81 mg PO [facility] Stop: 02/13/21 08:59 Last Admin: 01/25/21 08:59 Dose: 81 mg Documented by: Atorvastatin Calcium (Atorvastatin 40 Mg Tab) 80 mg PO [facility] Stop: 02/12/21 22:44 Last Admin: 01/24/21 20:24 Dose: 80 mg Documented by: Calcitriol (Calcitriol 0.25 Mcg Capsule) 0.25 mcg PO [facility] Stop: 02/13/21 08:59 Last Admin: 01/25/21 09:00 Dose: 0.25 mcg Documented by: Chlorthalidone (Chlorthalidone 25 Mg Tab) 25 mg PO [facility] Stop: 02/13/21 08:59 Last Admin: 01/25/21 09:00 Dose: 25 mg Documented by: Clopidogrel Bisulfate (Clopidogrel Bisulfate 75 Mg Tab) 75 mg PO [facility] Stop: 02/13/21 08:59 Last Admin: 01/25/21 08:59 Dose: 75 mg Documented by: Dextrose (Dextrose 50% 50 Ml Syringe) 25 - 50 ml IV UD PRN; Protocol PRN Reason: Hypoglycemia Protocol Stop: 02/12/21 23:44 Enoxaparin Sodium (Enoxaparin Inj 40 Mg/0.4 Ml Syr) 40 mg SQ QAM LIZZY Stop: 02/23/21 08:59 Last Admin: 01/25/21 08:58 Dose: 40 mg Documented by: Glucagon (Glucagon For Inj 1 Mg Vial) 1 mg IM UD PRN; Protocol PRN Reason: Hypoglycemia Protocol Stop: 02/12/21 23:44 Glucose (Glucose 40% Gel 15 Gm Tube) 15 - 30 gm PO UD PRN; Protocol PRN Reason: Hypoglycemia Protocol Stop: 02/12/21 23:44 Glucose (Glucose 10 Tabs/Tube) 4 - 8 tabs PO UD PRN; Protocol PRN Reason: Hypoglycemia Protocol Stop: 02/12/21 23:44 Sodium Chloride (Nss) 250 mls @ 15 mls/hr IV .[id number] PRN PRN Reason: For Transfusion Stop: 02/18/21 04:59 Daptomycin 675 mg/ Syringe 13.5 mls @ 6.75 mls/min IV Q24H LIZZY; Protocol Stop: 03/01/21 10:59 Last Admin: 01/24/21 11:29 Dose: 6.75 mls/min Documented by: Cefepime HCl 2,000 mg/ Syringe 20 mls @ 5 mls/min IV Q12 LIZZY; Protocol Stop: 03/04/21 20:59 Last Admin: 01/25/21 08:56 Dose: 5 mls/min Documented by: Insulin Aspart (Insulin Aspart 100 Units/Ml 3 Ml Pen) 0 units SC DAILY@1130,1630,2100 LIZZY; Protocol Stop: 02/23/21 11:29 Last Admin: 01/24/21 21:26 Dose: Not Given Documented by: Insulin Aspart (Insulin Aspart 100 Units/Ml 3 Ml Pen) 0 units SC QDB [facility]; Protocol Stop: 02/24/21 07:29 Last Admin: 01/25/21 09:02 Dose: 21 units Documented by: Insulin Glargine (Insulin Glargine Solostar 100 Units/Ml 3 Ml Pen) 35 units SC DAILY [facility]; Protocol Stop: 02/23/21 08:59 Last Admin: 01/25/21 09:01 Dose: 35 units Documented by: Insulin Human NPH (Insulin Human Nph) 10 units SC HS [facility]; Protocol Stop: 02/22/21 20:59 Last Admin: 01/24/21 21:27 Dose: 10 units Documented by: Lactobacillus Acidoph/Casei/Rhamnos (Advanced Probiotic 1250 Mg Capsule) 2 cap PO DAILY [facility] Stop: 02/13/21 17:51 Last Admin: 01/25/21 08:59 Dose: 2 cap Documented by: Levothyroxine Sodium (Levothyroxine Sodium 175 Mcg Tablet) 175 mcg PO DAILYBB [facility] Stop: 02/13/21 06:29 Last Admin: 01/25/21 06:10 Dose: 175 mcg Documented by: Metoprolol Tartrate (Metoprolol Tartrate 25 Mg Tab) 12.5 mg PO BID [facility] Stop: 02/12/21 22:44 Last Admin: 01/25/21 09:00 Dose: 12.5 mg Documented by: Miscellaneous (Carbohydrates For Hypoglycemia ) 15 - 30 gm PO UD PRN PRN Reason: Hypoglycemia Treatment Stop: 02/12/21 23:44 Last Admin: 01/15/21 20:28 Dose: 15 gm Documented by: Miscellaneous Information (Daptomycin Consult Active) 1 ea N/A UD PRN PRN Reason: Consult Stop: 02/12/21 22:44 Miscellaneous Information (Pharmacy Glycemic Mgmt Consult) 1 ea N/A UD PRN PRN Reason: Consult Stop: 02/19/21 06:42 Ondansetron HCl (Ondansetron Inj 2 Mg/Ml 2 Ml Vial) 4 mg IV Q6H [facility] Stop: 02/18/21 19:59 Last Admin: 01/25/21 08:57 Dose: 4 mg Documented by: Oxycodone HCl (Oxycodone Hcl Ir 5 Mg Tab (Immediate Release)) 5 mg PO TID PRN PRN Reason: moderate to severe Pain Stop: 01/27/21 22:55 Pantoprazole Sodium (Pantoprazole 40 Mg Tab) 40 mg PO QAM [facility] Stop: 02/13/21 08:59 Last Admin: 01/25/21 09:00 Dose: 40 mg Documented by: Polyethylene Glycol (Polyethylene (Miralax) 17 Gm Pack) 17 gm PO DAILY PRN PRN Reason: Constipation Stop: 02/12/21 22:44 Last Admin: 01/24/21 10:20 Dose: 17 gm Documented by: Potassium Chloride (Potassium Chloride Crtab 20 Meq Tabcr) 20 meq PO [id number] LIZZY Stop: 02/12/21 22:44 Last Admin: 01/25/21 08:59 Dose: 20 meq Documented by: Resident Activity Tracking Resident Involvement: Resident Care Provided Care Provided: Adult Hospital Medicine
[2021-01-25] MEDS: DAPTOmycin 675 MG in SYRINGE 0 ML IV SCH (13:00)
--- NOTE | 2021-01-25 15:53 | Communication Note ---
Date of Service: January 25, 2021 As per ortho consult note, the BKA will be done the week of the when Dr. Soto is back. If the amputation becomes an emergency, I can do it sooner. Due to my schedule and the OR schedule, I won't be able to do it till next week unless it becomes an emergency.
[2021-01-25] MEDS: POLYETHYLENE (MIRALAX) 17 GM PACK PO PRN (18:21)
[2021-01-25] MEDS ORDERED: INSULIN HUMAN NPH SC SCH ×2 (21:00)
[2021-01-25] MEDS: ATORVASTATIN 40 MG TAB PO SCH (21:06)
[2021-01-26] MEDS: ONDANSETRON INJ 2 MG/ML 2 ML VIAL IV SCH ×3 (01:53→13:38)
[2021-01-26] MEDS: LEVOTHYROXINE SODIUM 175 MCG TABLET PO SCH (05:50)
[2021-01-26 06:43] LABS: Hematocrit (blood only) 31.2 % (42-52); Mean Corpuscular Hemoglobin 27.7 pg (25-34); Mean Corpuscular Hgb Conc 32.1 g/dL (32-36); Mean Corpuscular Volume 86.4 fL (80-100); Mean Platelet Volume 9.6 fL (7.4-10.4); Platelet Count 419 K/uL (130-400); RDW Coefficient of Variation 14.1 % (11.5-14.5); Red Blood Count 3.61 M/uL (4.7-6.1); White Blood Count 8.17 K/uL (4.8-10.8)
[2021-01-26 07:41] LABS: Basophils # (auto) 0.04 K/uL (0-0.2); Basophils % (auto) 0.5 %; Eosinophils # (auto) 0.38 K/uL (0-0.5); Eosinophils % (auto) 4.7 %; Immature Granulocytes # (auto) 0.02 K/uL (0.00-0.02); Immature Granulocytes % (auto) 0.2 %; Lymphocytes # (auto) 1.46 K/uL (1.2-3.4); Lymphocytes % (auto) 17.9 %; Monocytes # (auto) 1.23 K/uL (0.11-0.59); Monocytes % (auto) 15.1 %; Neutrophils # (auto) 5.04 K/uL (1.4-6.5); Neutrophils % (auto) 61.6 %
[2021-01-26] MEDS: CLOPIDOGREL BISULFATE 75 MG TAB PO SCH (08:14)
[2021-01-26] MEDS: ASPIRIN 81 MG ECTAB PO SCH (08:14)
[2021-01-26] MEDS: METOPROLOL TARTRATE 25 MG TAB PO SCH (08:15)
[2021-01-26] MEDS: CHLORTHALIDONE 25 MG TAB PO SCH (08:15)
[2021-01-26] MEDS: ADVANCED PROBIOTIC 1250 MG CAPSULE PO SCH (08:15)
[2021-01-26] MEDS: PANTOprazole 40 MG TAB PO SCH (08:15)
[2021-01-26] MEDS: CALCITRIOL 0.25 MCG CAPSULE PO SCH (08:15)
[2021-01-26] MEDS: POTASSIUM CHLORIDE CRTAB 20 MEQ TABCR PO SCH ×2 (08:16→18:04)
[2021-01-26] MEDS: ENOXAPARIN INJ 40 MG/0.4 ML SYR SQ SCH (08:19)
[2021-01-26] MEDS: CEFEPIME 2,000 MG in SYRINGE 0 ML IV SCH (08:27)
[2021-01-26] MEDS ORDERED: INSULIN GLARGINE SOLOSTAR 100 UNITS/ML 3 ML PEN SC SCH (09:00)
--- NOTE | 2021-01-26 09:11 | Pharmacy Report ---
Pharmacy Glycemic Short Note 2 - Date of Service January 26, 2021 - Glycemic Short BSG Results (Last 24 hours): 01/25/21 01/25/21 01/25/21 12:25 17:43 20:44 POC Glucose 299 H 117 H 67 L* 01/25/21 01/25/21 01/26/21 20:44 21:15 07:49 POC Glucose 66 L* 73 192 H OUTPATIENT ANTIDIABETIC REGIMEN: * Insulin pump (1.3 units/hr basal, CF 40, CR 8) * A1C: 8.6% (11/01/20) ASSESSMENT: 01/26: * Patient received a total of 93 units of insulin yesterday * 43 units basal + 50 units bolus * BSGs were [phone] mg/dL * Continuing basal/bolus until day of discharge then will transition back to insulin pump * Fasting improved to 192 mg/dL this morning * Lantus was increased this morning given fasting above goal range * Patient was scheduled to receive 15 units of NPH for possibility of john phenomenon last evening but given low BSG at bedtime, this was reduced to 8 units. Will increase back to 15 units for this evening given uncontrolled fasting. * Novolog was tightened with breakfast only today. PLAN FOR INPATIENT GLYCEMIC CONTROL: * Basal insulin - increased * Lantus 38 units SC AM * NPH 15 units SQ HS * Bolus insulin - tightened CF/CR with breakfast * NovoLog per scale ACHS or Q6hrs while NPO * Goal range 90-140 mg/dL * Breakfast: Correction factor 20 mg/dL/unit; Carb ratio 3 g CHO/unit * Lunch, Dinner, Bedtime: Correction factor 35 mg/dL/unit; Carb ratio 6 g CHO/unit PLAN FOR DISCHARGE: * HbA1c from this admission is 7.3%. This is slightly above the goal HbA1c of less than 7% based on this patient's age and comorbidities. * Defer any insulin pump adjustments to [facility] Endocrinology who patient follows with regularly.
[2021-01-26] MEDS: INSULIN ASPART 100 UNITS/ML 3 ML PEN SC SCH ×3 (09:19→17:38)
[2021-01-26] MEDS: DAPTOmycin 675 MG in SYRINGE 0 ML IV SCH (11:43)
--- NOTE | 2021-01-26 14:35 | Hospitalist Progress Note ---
Date of Service January 26, 2021 Assessment & Plan (1) Diabetic ulcer of ankle associated with type 1 diabetes mellitus: Ron Chowdhury is a 65 yo man PMH DM1, PAD, multiple nonhealing leg wounds, chronic osteomyelitis admitted for outpatient management of of R heel cellulitis around a preexisting ulcer and R hallux osteomyelitis. Diabetic foot ulcers (Over of the Right Heel/right great toe): -On review of HbA1c record over past several years, patient has been regularly >8 -Running above goal for quite some time has likely resulted in collateral blood vessel occlusion -CT right foot without contrast showing erosive change along the plantar and medial base of the first distal phalanx, suspicious for osteomyelitis -Blood cultures negative -History of Pseudomonas and MRSA on previous wound cultures -Revascularization 01/19/21 initially successful but Graft occluded -Continue cefepime and daptomycin -Will attempt to get US guided IV in AM -To have follow-up with Dr. Soto following discharge and maintained on antibiotics until after surgery Peripheral Vascular Disease -Status post femoral-posterior tibial bypass graft on 01/19/[address] Eason - unfortunately graft has occluded -Continue statin -Continue Aspirin and plavix Hypokalemia, Hypomagnesemia, hypophosphatemia - Repleted Type 1 diabetes - Patient using his own insulin pump. - If needed, can consider pausing insulin pump and temporarily utilizing subcutaneous insulin - HbA1c 7.6 Chronic medical problems Hypertension: Continue metoprolol, chlorthalidone GERD: Continue pantoprazole Hypokalemia: Continue potassium chloride 20 mEq twice daily supplementation CKD 3: Avoid nephrotoxic meds Code: FULL CODE Diet: CC DM1 Dispo: Med/surg PPX: Lovenox Admission and Anticipated Discharge Date Admission Date: January 13, 2021 Physical Exam Constitutional: WD/WN, vitals as above Eyes: PERRL, conjunctivae normal, anicteric sclerae Respiratory: normal respiratory effort, lungs clear to auscultation Auscultation: no crackles, no rales, no rhonchi and no wheezes Cardiovascular: Rate/Rhythm: regular rate and regular rhythm Heart Sounds: no gallop, no murmur and no cardiac rub Vessels: normal peripheral pulses; no JVD Extremities: no edema Skin: + wound (Multiple eschar wounds over toes; no tracking erythema, or fluctuance) Neurologic: PERRL, EOMI, accommodation nl, no face palsy, no dysarthria CN's II-XI intact bilaterally and moves all extremities Psychiatric: Orientation: alert and oriented x 3 Results & Data Results & Data ([facility]) Vital Signs (Past 12 Hours) Vital Signs Temp Pulse Resp BP Pulse Ox 01/26/21 07:54 36.7 C 69 16 160/79 H 94
--- NOTE | 2021-01-26 15:21 | Orthopedic Progress Note ---
Date of Service January 26, 2021 Assessment & Plan (1) Diabetic ulcer of right heel: Updated patient on plans for surgery next week. We will see him in our office on Monday and set up for surgery. Surgery planned for 02/04/21 tentatively. Patient understands and agrees. He will be in the hospital a few days after the procedure. Admission and Anticipated Discharge Date Admission Date: January 13, 2021 Subjective Patient resting in bed. Results & Data ([facility]) Vital Signs (Past 12 Hours) Vital Signs Temp Pulse Resp BP Pulse Ox 01/26/21 07:54 36.7 C 69 16 160/79 H 94
--- NOTE | 2021-01-26 17:30 | Discharge Summary ---
Date of Service January 26, 2021 Admission HPI Per Admitting Provider Patient is a very pleasant 65-year-old gentleman with a notable past medical history of type 1 diabetes complicated with diabetic neuropathy in the lower extremities, multiple diabetic foot ulcers, peripheral arterial disease complicated by ischemic ulcers, chronic osteomyelitis, coronary artery disease status post CABG X1 in 2016, osteoporosis, CKD stage III, hypertension, aortic stenosis status post Porcine valve replacement in 2016, hypertension, hypothyroidism who presents at the recommendation of wound care clinic for concerns of cellulitis of his right heel. Patient notes that over this past weekend, he did notice that his right heel was becoming more reddened, expressive discharge, and malodorous. He continued applying his dressings (inclusive of Aquacel, gentamicin, Santyl, and Betadine) without much relief. He denies any fevers, chills, rigors, or other constitutional symptoms throughout this time. Does endorse mild and intermittent nausea, but no loss of appetite. He presented to his wound care clinic earlier today, who noted that compared to his check last week, the right heel ulcer had deteriorated and was demonstrating cellulitic changes with fatty necrosis. It was debrided in the cl inic. However, he was recommended to come to the ER out of concern for spreading soft tissue infection to receive parenteral antibiotics. Of note, patient did undergo a closed split thickness skin graft of the left lateral leg on November 18. He also underwent right lower extremity angiogram, with intention of femoral-popliteal bypass; however, this had to be rescheduled due to hypokalemia. He is currently scheduled for the beginning of February. He is also being followed by [facility] infectious disease, who recommends continuing daily doxycycline until after his revascularization. In the ER, patient was found to be hemodynamically stable, afebrile, and well- appearing. He does have a mild leukocytosis without true shift. He did not have a lactate or pro-Lionel level. He received Dapto and cefepime in the ED. Principal Diagnosis Osteomyelitis Discharge Exam Constitutional WD/WN, vitals as above Eyes PERRL, conjunctivae normal, anicteric sclerae Respiratory normal respiratory effort, lungs clear to auscultation Auscultation: no crackles, no rales, no rhonchi and no wheezes Cardiovascular Rate/Rhythm: regular rate and regular rhythm Heart Sounds: no gallop, no murmur and no cardiac rub Vessels: normal peripheral pulses; no JVD Extremities: no edema Skin + wound (Multiple eschar wounds over toes; no tracking erythema, or fluctuance) Neurologic PERRL, EOMI, accommodation nl, no face palsy, no dysarthria CN's II-XI intact bilaterally and moves all extremities Psychiatric Orientation: alert and oriented x 3 Discharge Data Allergies Allergy/AdvReac Type Severity Reaction Status Date / Time No Known Allergies Allergy Unknown Verified 01/13/21 18:33 Consultations 01/13/21 20:05 ED Decision to Admit Stat 01/13/21 22:45 Consult General Surgery Routine Consult Vascular Surgery Routine 01/19/21 18:45 Consult Technical Implementation Lead Routine 01/21/21 09:11 Consult Orthopedic Surgery Routine 01/21/21 14:23 Consult Orthopedic Surgery Routine Procedures Performed Operation Date: 01/19/21 11:50 Actual Procedures p Right Femoral to Posterior tibial Prosthetic Bypass Graft(Right) - Floyd Eason MD Ordered Studies 01/13/21 21:13 CT foot RT wo con Routine 01/19/21 09:44 EV angio LE RT Routine 01/20/21 12:47 US arterial duplex LE RT Routine 01/20/21 21:48 CT angio LE RT w inc wo if don Urgent 01/25/21 07:00 US arterial duplex LE RT Routine Hospital Course (1) Diabetic ulcer of ankle associated with type 1 diabetes mellitus: Ron Chowdhury is a 65 yo man PMH DM1, PAD, multiple nonhealing leg wounds, chronic osteomyelitis admitted for outpatient management of of R heel cellulitis around a preexisting ulcer and R hallux osteomyelitis. Diabetic foot ulcers (Over of the Right Heel/right great toe): -On review of HbA1c record over past several years, patient has been regularly >8 -Running above goal for quite some time has likely resulted in collateral blood vessel occlusion -CT right foot without contrast showing erosive change along the plantar and medial base of the first distal phalanx, suspicious for osteomyelitis -Blood cultures negative -History of Pseudomonas and MRSA on previous wound cultures -Revascularization 01/19/21 initially successful but Graft occluded -Continue daptomycin for 14 days or until surgery -US-guided IV placed on 01/26 -To have follow-up with Dr. Soto following discharge and maintained on antibiotics until after surgery (02/04) Peripheral Vascular Disease -Status post femoral-posterior tibial bypass graft on 01/19/[address] Eason - unfortunately graft has occluded -Continue statin -Continue Aspirin and plavix Type 1 diabetes - Patient using his own insulin pump. - If needed, can consider pausing insulin pump and temporarily utilizing subcutaneous insulin - HbA1c 7.6 Chronic medical problems Hypertension: Continue metoprolol, chlorthalidone GERD: Continue pantoprazole Hypokalemia: Continue potassium chloride 20 mEq twice daily supplementation CKD 3: Avoid nephrotoxic meds Total Time Total Time Spent Total Time Spent (In Minutes): >30 Discharge Plan Discharge Items Patient Disposition: Home - Home Health Services Reason For Visit: CELLULITIS Discharge Diagnosis: osteomyelitis Activity: Per Instructions section Non-emergency contact: Primary Care Provider and Surgeon Call non-emergency contact if: you have any medication questions, your symptoms worsen, your pain is worsening and you have a fever Follow-up/Referrals: Enio Richards III, MD [Primary Care Provider] - 02/04/21 10:00 am Xander Soto MD [Surgeon] - 02/01/21 11:00 am Diet: Carb Count or DM1 Addtl Attending Provider Instructions: You were seen and admitted for concerns regarding your chronic right foot infections. Despite attempts to provide better blood flow to your leg/foot you have had worsening of your infection. While this infection did not worsen to the point were the amputation was not required to be done emergently, it is likely that it is going to be needed shortly. As your preferred surgeon is able to do the surgery in the coming weeks and it is not needing to be done emergently, you are being discharged on antibiotics that you should continue over the next several weeks. You will have an appointment with Dr. Soto and his group next week on 02/01 at 11am, with plan to do the amputation in the coming weeks. We have given you enough antibiotics to get you through the proposed surgery date. Pending Studies at Discharge: No Stand-Alone Forms: My [facility] [employer], Smoking Cessation Medications and DC Order Prescriptions: New daptomycin [Cubicin] 500 mg recon soln 675 mg IV DAILY 14 Days RF: 0 Continued aspirin 81 mg tablet,delayed release (DR/EC) 81 mg PO QAM RF: 0 gentamicin 0.1 % ointment 1 applic topical ONCE 42 Days Qty: 30 RF: 1 metoprolol tartrate 25 mg tablet 12.5 mg PO BID Qty: 90 RF: 3 pantoprazole [Protonix] 40 mg tablet,delayed release (DR/EC) 40 mg PO QAM Qty: 30 RF: 5 atorvastatin [Lipitor] 80 mg tablet 80 mg PO HS Qty: 90 RF: 3 insulin aspart U-100 [Novolog U-100 Insulin aspart] 100 unit/mL solution 60 unit SQ UD Qty: 20 RF: 5 calcitriol [Rocaltrol] 0.25 mcg capsule 0.25 mcg PO QAM RF: 0 levothyroxine 175 mcg tablet 175 mcg PO QAM RF: 0 acetaminophen [Tylenol Extra Strength] 500 mg Tablet 1,000 mg PO Q6 PRN (Reason: Pain) RF: 0 clopidogrel [Plavix] 75 mg Tablet 1 tab PO QAM RF: 0 chlorthalidone 25 mg tablet 25 mg PO QAM RF: 0 oxycodone 5 mg Tablet 5 mg PO TID PRN (Reason: Pain) RF: 0 potassium chloride 20 mEq tablet extended release 20 meq PO BID RF: 0 Discontinued doxycycline hyclate 100 mg tablet 100 mg PO BID 14 Days Qty: 28 RF: 0 Discharge Orders: Discharge Order (Routine); Ordered 01/26/21 Ordered By: Jeremias Morton Admission Data Admit Date/Time: 01/13/21 21:24 Attending Provider: Jessica Partida Admit Provider: Robert Reese Primary Care Provider: Enio Richards III Other Providers: Yisel Wei ; [facility],Home Healthcare ; Merle Cole ; Noemí Garcia ; Alexis Jacobsen ; Jesus Hill ; Fuentes Taylor ; Jeremias Bhakta Jr ; Prince Valadez ; Markus Dawson ; Aisha Chavez ; Lyndon Shankar ; Ad Gomez ; Floyd Eason ; Tae Gudino ; Chance Noland ; Damián Snell ; Kai Mcmillan ; Albert Edwards ; Rashid Rios ; Que Palomo ; Chance Nobles ; Xander Soto ; Helio,Mandy Other Interventions: Discharge Summary Assessment (RN) Last Done: 01/26/21 17:28 Supervising Physician Co-Signing Physician Notes Patient seen and examined independently of PGY-2 Dr. Salas. Agree with history, exam findings, assessment and plan of care as outlined. 65 year old male with history of DM1, PAD, multiple non-healing leg ulcers, chronic osteomyelitis admitted with right heel ulcer with cellulitis and R hallux osteomyelitis. s/p femoral-posterior tib bypass that has become acutely occluded. Awaiting amputation. No complaints today. He is excited at the possibility of going home rather than staying here in the hospital for antibiotics. 1. Right heel ulcer with superimposed cellulitis. Hx of pseudomonas and MRSA on prior wound cultures. D/C cefepime, continue daptomycin on discharge. Plans for planned BKA next week due to surgeon availability. At this time, amputation is not urgent. Repeat arterial doppler of graft with occluded right femoral- posterior tibial bypass with some collateral flow. Do not think collaterals are likely sufficient. 2. Right great toe ulcer with osteomyelitis. Antibiotics as above. Surgical plan as above. 3. PAD. s/p bypass that is now occluded with insufficient collaterals. See above. Continue statin, asa, Plavix. Plan for BKA. Will likely happen as an outpatient. Dr. Salas discussed with Dr. Joselyn OLIVER to set up outpatient follow up and preparation for scheduled BKA. 4. DM. insulin pump. A1C 7.6 on admission. 5. HTN. Continue home metoprolol and chlorthalidone. Dispo: Ultrasound guided IV and home IV antibiotics. Will need antibiotics until surgical intervention happens. Set up for office visit with [facility] on Thursday 02/01. If starts to have critical limb ischemia, will return to the ED for more urgent intervention. Does also have vascular surgery follow up on Monday, 02/[address] Eason's office. I personally spent 40 minutes discharge planning for this patient. Home Health Attestation I certify that this patient is under my care and that I, or a physicians cataloging assistant working with me, had a face to-face encounter that meets the home health [id number] encounter requirements with this patient. The encounter with the patient was in whole, or in part, for the following medical condition, which is the primary reason for home health care (list medical condition): Cellulitis. I certify that, based on my findings, the following services are medically necessary home health services: My clinical findings support the need for the above services because: Skilled Nsg Assessment Surgical Incision / Wound Further, I certify that my clinical findings support that this patient is homebound (i.e. absences from home require considerable and taxing effort and are for medical reasons or mandaen services or infrequently or of short duration when for other reasons) because: Supportive Aid - Wheelchair Certification for Home Health Services: Based on the above findings, I certify that this patient is confined to the home and needs intermittent prison care, physical therapy and/or speech therapy or continues to need occupational therapy. The patient is under my care, and I have initiated the establishment of the plan of care. This patient will be followed by a physician who will periodically review the plan of care. Resident Activity Tracking Resident Involvement: Resident Care Provided Care Provided: Adult [facility] Medicine
[2021-01-26] MEDS ORDERED: INSULIN HUMAN NPH SC SCH (21:00)
--- NOTE | 2021-02-09 10:00 | Operative Report ---
Post Operative Report Pre & Post Diagnosis Operation Date: 01/19/21 11:50 Pre-Op Diagnosis: Atherosclerosis of [place] artery of right lower extremity with ulceration of foot Post-Op Diagnosis: Atherosclerosis of [place] artery of right lower extremity with ulceration of foot I identified the patient and participated in the time-out.: Yes Procedure Operation Date: 01/19/21 11:50 Actual Procedures p Right Femoral to Posterior tibial Prosthetic Bypass Graft(Right) - Floyd Eason MD Surgeon Floyd Eason MD Property Claims Adjuster [employer]into[employer] Estimated Blood Loss 850 Findings Consistent with Post-Op Diagnosis Specimens none Anesthesia Type General Complications none Disposition Accompanied Patient To Recovery: No Disposition: Recovery Room Indications This 65-year-old gentleman with a nonhealing ulcer of the right lower extremity. He has known superficial femoral artery occlusion which is not treatable with endovascular techniques. A right femoral to posterior tibial bypass was recommended. I have discussed the risks options and benefits of the procedure with the patient. The patient understands the risks options and benefits and agrees to the procedure. Description of Procedure The patient was taken the operating placed in supine position. Right lower extremities then prepped and draped in a sterile manner after general anesthesia was accomplished. A timeout was performed and the patient was identified. A large incision was then made in the groin this was carried down to where the common femoral artery was identified. It was isolated stent total length. It was of good caliber and fairly soft. Good pulse was felt. The 2 incision was made in the medial calf just below the knee. This was carried down through the fascia. The incision was carried down to the upper part of the calf. The posterior tibial artery was then identified. It was of good size however was heavily calcified. We went down further in the leg exposing the posterior tibial in the midportion. It was slightly soft at that level. It was decided to try to do the anastomosis at that point. Using a [place] tunneler tunnel was made between the incisions. A 6 mm ringed propatent graft was then passed through the tunneler. The tunneler was removed. Patient was heparinized at that time. Common femoral arteries then clamped proximal distally. Longitudinal arteriotomy was then made. The inflow surface had calcifications present but was widely patent. An end-to-side anastomosis accomplished in the [place] graft in the common femoral artery using a CV 5 [place] suture. After this was completed the artery was flushed through the graft. A clamp was then placed on the graft and the clamps removed and the common femoral artery. The graft was suctioned out. The leg was extended. Posterior tibial artery was then opened longitudinally and a flow Rester placed in the artery for occlusion. The [place] graft was then beveled and the long a nastomosis was accomplished using a 6-0 Prolene suture in usual vascular fashion. Prior to completing the closure backbleeding from the does not occur to find few sutures then placed and securely tied. Clamps were removed. There was a fairly decent Doppler signal heard beyond the graft. There is also fairly good signal heard at the posterior tibial. Using micropuncture technique the graft was punctured in the proximal portion. The micropuncture sheath was inserted. Arteriogram was then performed which showed good outflow through the anastomosis. There is a large amount of small vessel disease and plaque present throughout the posterior tibial artery had pedal vessels. The sheath was then pulled and the puncture site closed with interrupted 6-0 Prolene. Active hemostasis was then obtained of the wounds. Wounds were then closed in usual fashion using 2-0 Vicryl for the femoral sheath 3-0 Vicryl subcutaneous layer both incisions and sharri for the skin. Sterile dressings were applied to the wound.The patient left the operation room in satisfactory condition and tolerated the procedure well. All needle and sponge counts were correct at the end of the procedure. Bekah Rodriges Pac assisted due to lack of resident availability and was necessary for positioning, draping, retraction, wound closure deep layers, subcutaneous tissue, and skin closure and was necessary for assisting with the case. I attest to the content of the Intraoperative Record and any orders documented therein. Any exceptions are noted below.
== END 2021-01-26 19:42 | disposition home health service (06) | DRG 253 ==
LOC: ED 15:51 → SUATTDRO 21:24 → 2S 22:22 → 3W 01-14 17:48 → 1E 01-19 18:41 → 3N 01-20 15:52

== ENCOUNTER 2021-03-22 09:16 | Inpatient (IN) ==
[2021-03-22] MEDS ORDERED: ACETAMINOPHEN 325 MG TAB PO PRN (10:41)
[2021-03-22] MEDS ORDERED: ONDANSETRON INJ 2 MG/ML 2 ML VIAL IV PRN (10:41)
[2021-03-22] MEDS ORDERED: POLYETHYLENE (MIRALAX) 17 GM PACK PO PRN (10:41)
[2021-03-22] MEDS ORDERED: CARBOHYDRATES FOR HYPOGLYCEMIA PO PRN (10:46)
[2021-03-22] MEDS ORDERED: DEXTROSE 50% 50 ML SYRINGE IV PRN (10:46)
[2021-03-22] MEDS ORDERED: GLUCAGON FOR INJ 1 MG VIAL SQ PRN (10:46)
[2021-03-22] MEDS ORDERED: GLUCOSE 10 TABS/TUBE PO PRN (10:46)
[2021-03-22] MEDS ORDERED: GLUCOSE 40% GEL 15 GM TUBE PO PRN (10:46)
[2021-03-22] MEDS ORDERED: oxyCODONE HCL IR 5 MG TAB (IMMEDIATE RELEASE) PO PRN (10:48)
[2021-03-22] MEDS ORDERED: PATIENT'S HEIGHT AND/OR WEIGHT NEEDED SCH (11:00)
[2021-03-22] MEDS ORDERED: PHARMACY GLYCEMIC MGMT CONSULT SCH (11:21)
--- NOTE | 2021-03-22 11:26 | History & Physical Report ---
Date of Service March 22, 2021 Assessment & Plan (1) Osteomyelitis due to type 1 diabetes mellitus: Chronic ulceration now with worsening of his wound and exposed bone- see culture results from March 15 - Continue Daptomycin 500 mg IV - Cefepime 2 GM IV TID for osteo and pseudomonal coverage- see sensitivities - Surgical consultation placed to Orthopaedics - Wound care- dressed and covered this morning at wound care clinic - wound care consult placed - Continue Aquacel AG and Santyl for now - NPO after midnight - Blood cultures pending - PCT, ESR, CRP pending - WBC elevated to 22 with NLR 20:1- not septic appearing and no other evidence of organ dysfunction (2) Diabetic ulcer of right heel: As above - revascularization with amputation on going plan (3) Peripheral arterial disease: As above - Vascular surgery consult placed. Patient scheduled for OR tomorrow - NPO after midnight - ASA on hold- patient took dose this morning - Plavix has been on hold since per patient reports- On hold (4) Uncontrolled type 1 diabetes mellitus: Insulin pump at home - Has had history of difficult to control while in house - Insulin pump discontinue - Pharmacy consult placed to manage - Basal/bolus insulin - q4 hour glucose checks - Goal <180 (5) Atherosclerosis of [place] artery of lower extremity with ulceration of foot: As above- poor healing vascular ulceration secondary to diabetes (6) Chronic renal disease, stage 3, moderately decreased glomerular filtration rate (GFR) between 30-59 mL/min/1.73 square meter: Continue with blood pressure control and glucose control - Avoid nephrotoxic medications, renally dose medications (7) History of aortic valve replacement: Last ECHO- EF 55-60% with normal function valves - continue with metoprolol - continue with chlorthalidone (8) CAD (coronary artery disease): Continue with BB, ASA, statin (9) Hypertension: Controlled continue as above (10) Hypothyroidism: TSH pending - Continue Synthroid 175 mcg daily Admission and Anticipated Discharge Date Admission Date: March 22, 2021 History of Present Illness Primary Care Provider: Enio Richards MD 65 YOM with medical history of: Bioprosthetic AVR (2015), CABG x1 (2015), HTN, HLD, PAD s/p Rt. FEM-POP bypass with PTFE graft 01/19, OA, DM I on watermaster insulin pump, CKD III, chronic wound on right heel and right ulcerations of great toe and last two digits of right foot. Patient with complex medical history and chronic wound management to his right lower leg complicated by infected tract following his fem-pop and chronic osteo. Patient with original surgery performed on 01/19 where he underwent the fem-pop bypass grafting to assist with healing his chronic osteomyelitis and chronic wound infection of the right foot. In February the patient had a small area at the midportion incision of his leg that was non healing and required debridement in the office and continued to not progress, he was referred back to the wound care clinic where he had a Wound VAC placed and the wound was further debrided with cultures. He was to have evaluation of surgical tract tomorrow with vascular surgery for ongoing infection. He went to wound clinic today [id number] for follow up of his right heel ulceration. Due to apparent worsening of his right heel ulcer now with a larger portion of bone being exposed, erythema, and extension of his eschar, the patient was referred to [facility] for direct admission to the medicine team. He has had his preoperative clearance as well as anesthetic evaluation performed as outpatient. Ortho consultation and Vascular surgical consultation placed, wound care consult to continue to follow through operative course/hospitalization. He remains on infusion daily of Daptomycin at home. His wound cultures from January and February had no growth. However he had culture with gram stain from wound on left and right leg that grew pseudomonas aeruginosa on 03/15/21. His insulin pump will be discontinued and transitioned to basal bolus insulin. NPO after midnight tonight. He has history of difficulty to control blood glucose levels requiring insulin infusions in the past. He has nonobstructive CAD with mid ostial RCA lesion noted. He has been off his Plavix since Monday and continues on his ASA. Will hold ASA tomorrow. His wound was dressed this morning at wound care. He has been undergoing Santyl, Gentamicin ointment with betadine scrub to eschar as outpatient. His toes are covered with gauze. Wound care to follow as well as adjust dressings tomorrow. Allergies Allergy/AdvReac Type Severity Reaction Status Date / Time No Known Allergies Allergy Unknown Verified 03/22/21 08:16 Home Medications Medication Instructions Recorded Confirmed Type pantoprazole 40 mg tablet,delayed 40 mg PO QAM #30 tab 04/27/20 03/22/21 Rx release atorvastatin 80 mg tablet 80 mg PO HS #90 tab 11/25/20 03/22/21 Rx gentamicin 0.1 % topical ointment 1 applic TOPICAL ONCE 42 Days #30 g 11/25/20 03/22/21 Rx insulin aspart U-100 100 unit/mL 60 unit SQ UD #20 ml 01/14/21 03/22/21 Rx subcutaneous solution acetaminophen 500 mg tablet 1,000 mg PO Q6 PRN #100 tab 01/28/21 03/22/21 Rx aspirin 81 mg tablet,delayed 81 mg PO QAM #30 tab 01/28/21 03/22/21 Rx release calcitriol 0.25 mcg capsule 0.25 mcg PO QAM #30 cap 01/28/21 03/22/21 Rx chlorthalidone 25 mg tablet 25 mg PO QAM #30 tab 01/28/21 03/22/21 Rx clopidogrel 75 mg tablet 75 mg PO QAM #30 tab 01/28/21 03/22/21 Rx levothyroxine 175 mcg tablet 175 mcg PO QAM #30 tab 01/28/21 03/22/21 Rx oxycodone 5 mg tablet 5 mg PO TID PRN #30 tab 01/28/21 03/22/21 Rx metoprolol tartrate 25 mg tablet 12.5 mg PO BID #90 tab 02/09/21 03/22/21 Rx potassium chloride 20 mEq 20 meq PO BID #60 tab 02/22/21 03/22/21 Rx tablet,extended release daptomycin 500 mg intravenous 500 mg IV DAILY 03/08/21 03/22/21 History solution collagenase clostridium histo. 250 1 applic TOPICAL DAILY 30 Days #30 03/16/21 03/17/21 Rx unit/gram topical ointment g Past Med/Surg History Medical History Aortic stenosis s/p porcine valve replacement (2015) with CABG x 1 CAD (coronary artery disease) s/p CABG x 1 (2015) Chronic renal disease, stage 3, moderately decreased glomerular filtration rate (GFR) between 30-59 mL/min/1.[address] Lerner Diabetes mellitus type 1 + Insulin pump Diabetic nephropathy associated with type 1 diabetes mellitus Dyslipidemia GERD (gastroesophageal reflux disease) Hypertension Hypothyroidism Insulin pump in place Osteoarthritis Osteoporosis PAD (peripheral artery disease) Proliferative diabetic retinopathy associated with type 1 diabetes mellitus PVD (peripheral vascular disease) s/p B/L iliac artery stents (2014), R common/external iliac (2017), R common femoral endarterectomy (11/2018) with bovine patch. Left femoral to PT composite bypass graft (06/2020) Surgical History H/O cataract extraction R/L H/O endarterectomy R common femoral (11/2018) H/O vascular surgery Right Femoral to Posterior tibial Prosthetic Bypass Graft(Right) History of ankle surgery LEFT ANKLE +HARDWARE REMOVED History of aortic valve replacement 2016 ([facility] [place]) History of arterial bypass of lower extremity Left femoral to PT composite bypass graft (06/2020) History of cardiac cath x2, most recent 2016 > no stents (subsequent CABG with AVR in 2015) History of carpal tunnel release R/L History of colonoscopy History of coronary artery bypass graft CABG x1 + AVR (2015) History of esophagogastroduodenoscopy (EGD) History of myringotomy History of open reduction and internal fixation (ORIF) procedure LLE () History of skin graft Split Thickness Skin Graft of Left Lateral Ankle (11/18/20): LMA#5, atraumatic x1 at [facility] History of tonsillectomy History of tooth extraction History of umbilical hernia repair Hx of surgical procedure Left Leg Wound Debridement and Irrigation S/P femoropopliteal bypass surgery Right fem-pop bypass graft (01/19/21): Grade 2 view, MAC 3.0, ETT 8.0 at [facility] S/P insertion of iliac artery stent B/L iliac stent placement (2014) 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 Family History Brother Family history of diabetes mellitus Sister Family history of diabetes mellitus Mother Family history of diabetes mellitus Grandmother (Maternal) Family history of diabetes mellitus Uncle Family hx of colon cancer Colorectal cancer Father Family history of esophageal cancer Sister Family history of diabetes mellitus Other No family history of adverse response to anesthesia Denies family history of Ovarian cancer Prostate cancer Myocardial infarction Breast cancer Social History Smoking Status: Former smoker Tobacco Type: Cigarettes and Smokeless Tobacco (Dip or Chew) Cigarettes Per Day: Quit 15 years ago; Second Hand Exposure: No; Do You Dip or Chew Tobacco: No; Tobacco Cessation Education Requested by Patient: No Hx Alcohol Use: No Hx Substance Use: No Preferred Language: Indonesian Communication Ability: Effective Visual Impairment: No Limitations Hearing Ability: Normal 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 (4275-1209, roughly) caffeine: Yes (coffee, rarely ) during the past year weight has: remained stable Dental Care, Regularly: No Physical Activity Frequency: 1-2 Times per Week Seatbelt Use: always Sunscreen Use: No Gender Identity: Male Assistive Devices: Brace/Splint/Immobilizer, Denture - Upper, Special Shoe, Walker and Wheelchair Assistive Devices Comment: shoe Review of Systems Review of Systems: REVIEW OF SYSTEMS: Constitutional: No fever, sweats or chills Eyes: No diplopia, no worsening or blurred vision ENT: normal hearing, no trouble swallowing Respiratory: No cough, sputum, dyspnea at rest or on exertion Cardiovascular: No chest pain, tightness or palpitations Abdomen: No pain, nausea, vomiting, diarrhea or constipation Musculoskeletal:(+) ulceration with poor healing No joint pain, calf pain, swelling Neurologic: No weakness, numbness/tingling, or balance problems Psychiatric: No anxiety or depression Skin: as per HPI, left medial ulceration well healing, Physical Exam Physical Exam: PHYSICAL EXAM: General: awake, alert, no apparent distress Head: Normocephalic, atraumatic ENT: PERRL, EOMI, no pharyngeal exudate, mucous membranes moist Neuro: AAO x 3, speech clear and appropriate, strength intact bilaterally 5/5, sensation intact and equal all extremities and dermatomes, no pronator drift Chest: equal rise and fall of the chest, no accessory muscle use, no heaves or thrills, Clear to auscultation, on room air, Cardiac: Regular rate and rhythm, telemetry reviewed- NSR, skin warm dry, cap refill <3 seconds, peripheral pulses +2 no JVD, no murmur, no edema GI: NABS x 4 quadrants, soft, nontender to palpation, no rebound, guarding or tenderness : Spontaneously voiding, no pain, no CVA tenderness, Extremities: Right lower leg wound dressed without any drainage, decreased sensation to bilateral lower legs secondary to neuropathy, pulses palpable 1-2+, insulin pump to abdomen, Psych: Normal mood and affect Skin: no rashes, no other open areas noted Results & Data Results & Data ([facility]) Vital Signs (Past 12 Hours) Vital Signs Temp Pulse Resp BP Pulse Ox 03/22/21 10:46 36.6 C 85 16 141/78 H 98 Laboratory Results Abnormal lab results 03/22/21 03/22/21 03/22/21 Range/Units 11:15 11:16 11:16 WBC 22.73 H (4.8-10.8) K/uL RBC 4.25 L (4.7-6.1) M/uL Hgb 10.7 L (14.0-18.0) g/dL Hct 33.4 L (42-52) % MCV 78.6 L (80-100) fL RDW Coeff of Chan 15.3 H (11.5-14.5) % Plt Count 560 H (130-400) K/uL Neut # (Auto) 19.66 H (1.4-6.5) K/uL Lymph # (Auto) 1.04 L (1.2-3.4) K/uL [place] # (Auto) 1.93 H (0.11-0.59) K/uL Immature Gran # (Auto) 0.09 H (0.00-0.02) K/uL ESR 86 H (0-20) mm/hr POC Glucose 159 H (70-99) mg/dl Diagnostic Findings Chest X-Ray 03/22/21 11:57 XR chest 1V portable HISTORY: admission pre-op COMPARISON: Chest 03/19/2021. FINDINGS: No pneumothorax or no pleural effusions. No focal lung consolidations to suggest pneumonia. No evidence for pulmonary edema. Heart is normal in size. There are poststernotomy changes and an aortic valve prosthesis. IMPRESSION: No significant change compared to the prior study. No acute process. ACT 112: Negative or not required by law. Electronically signed by: Otf Avila M.D. 03/22/2021 1:21 PM XR pending Medications Administered Cefepime HCl 2,000 mg/ Syringe 20 mls @ 5 mls/min IV Q8H [facility]; Protocol Stop: 05/03/21 11:59 Last Admin: 03/22/21 11:55 Dose: 5 mls/min Documented by: [id number] ECG Additional Comments: Sinus rhythm with Premature atrial complexes Right bundle branch block Inferior infarct (cited on or before 31-JUL-2020) Abnormal ECG When compared with ECG of 13-JAN-2021 17:12, Premature atrial complexes are now Present Code Status & VTE Plan Code Status CODE: FULL VTE: SCD's, Heparin 5000 sub q TID VTE Prophylaxis Plan VTE Prophylaxis will be ordered: Yes Supervising Physician Co-Signing Physician Notes Patient seen and examined at bedside. Obtained history and physical examination during face to face encounter with patient. I reviewed above note and agree with it. Discussed plan with DUC Carranza. I answered all of the patients questions. Will admit patient for osteomyelitis of right heel due to type 1 diabetes. Plan is for amputation likely tomorrow. will continue IV antibiotics. 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 transplanted heart: [place] heart Hypertension I10 Hypertension type: unspecified Hypothyroidism E03.9 Hypothyroidism type: unspecified (1) Chronic renal disease, stage 3, moderately decreased glomerular filtration rate (GFR) between 30-59 mL/min/1.73 square meter Chronic kidney disease stage 3 subtype: stage 3a (GFR 45-59) Qualified Code(s): N18.31 - Chronic kidney disease, stage 3a (2) CAD (coronary artery disease) Associated angina: without angina Coronary Disease-Associated Artery/Lesion type: [place] artery [place] vs. transplanted heart: [place] heart Qualified Code(s): I25.10 - Atherosclerotic heart disease of [place] coronary artery without angina pectoris (3) Hypothyroidism Hypothyroidism type: unspecified Qualified Code(s): E03.9 - Hypothyroidism, unspecified (4) Uncontrolled type 1 diabetes mellitus Glycemic state: with hyperglycemia Qualified Code(s): E10.65 - Type 1 diabetes mellitus with hyperglycemia (5) Diabetic ulcer of right heel Diabetes mellitus type: type 1 (6) Hypertension Hypertension type: unspecified Qualified Code(s): I10 - Essential (primary) hypertension
[2021-03-22 11:46] LABS: Basophils # (auto) 0.01 K/uL (0-0.2); Hematocrit (blood only) 33.4 % (42-52); Hemoglobin 10.7 g/dL (14.0-18.0); Immature Granulocytes # (auto) 0.09 K/uL (0.00-0.02); Immature Granulocytes % (auto) 0.4 %; Lymphocytes # (auto) 1.04 K/uL (1.2-3.4); Lymphocytes % (auto) 4.6 %; Mean Corpuscular Hemoglobin 25.2 pg (25-34); Mean Corpuscular Volume 78.6 fL (80-100); Mean Platelet Volume 9.5 fL (7.4-10.4); Monocytes # (auto) 1.93 K/uL (0.11-0.59); Monocytes % (auto) 8.5 %; Neutrophils # (auto) 19.66 K/uL (1.4-6.5); Neutrophils % (auto) 86.5 %; Platelet Count 560 K/uL (130-400); RDW Coefficient of Variation 15.3 % (11.5-14.5); RDW Standard Deviation 43.9 fL (36.4-46.3); Red Blood Count 4.25 M/uL (4.7-6.1); White Blood Count 22.73 K/uL (4.8-10.8)
[2021-03-22] MEDS: CEFEPIME 2,000 MG in SYRINGE 0 ML IV SCH ×2 (11:55→20:06)
[2021-03-22 11:58] LABS: INR 1.1 (0.9-1.1); Prothrombin Time 11.1 Seconds (9.0-12.0)
[2021-03-22] MEDS ORDERED: INSULIN GLARGINE SOLOSTAR 100 UNITS/ML 3 ML PEN SC ONE (12:00)
[2021-03-22] MEDS ORDERED: cefTRIAXone SODIUM 2,000 MG in DEXTROSE 5% 50 ML IV SCH (12:00)
[2021-03-22 12:05] LABS: BUN Creatinine Ratio 16.4 (10-20); Calcium 9.6 mg/dl (8.5-10.1); Creatinine Clr Calc Pharmacy 67.7 ml/min; Est GFR (African American) 71.3 ml/min; Est GFR (Non-African American) 61.5 ml/min; Magnesium 1.8 mg/dl (1.8-2.4); Potassium 2.9 mmol/L (3.5-5.1)
[2021-03-22 12:16] LABS: C Reactive Protein 22.8 mg/dl (0-0.29); Phosphorus 3.2 mg/dl (2.5-4.9); Thyroid Stimulating Hormone 0.069 uIu/ml (0.300-4.500)
[2021-03-22 12:28] LABS: T4 Free Thyroxine 1.93 ng/dl (0.8-1.6)
--- NOTE | 2021-03-22 12:40 | Pharmacy Report ---
Pharmacy Glycemic Short Note 2 - Date of Service March 22, 2021 - Glycemic Short BSG Results (Last 24 hours): 03/22/21 03/22/21 11:15 11:16 Glucose 139 H POC Glucose 159 H OUTPATIENT ANTIDIABETIC REGIMEN: * Novolog pump: basal rate 1.3 units/hr; Correction Factor 40mg/dL/uni (if BSG > 120) and Carb Ratio 1 unit per 8gm CHO * A1c = 7.3% 01/21/21 ASSESSMENT: * Type 1 diabetic admitted for worsening RLE infection (chronic R foot osteo with multiple ulcerations) in the setting of DM and severe PAD. * Patient uses Novolog insulin pump. * Pharmacy has been consulted for glycemic control in the past * Plan to convert patient to SQ basal / bolus regimen today as there are plans for patient to undergo surgery tomorrow. Will base initial insulin doses on insulin pump settings as well as data from past admissions. Of note, stressors during last admission (January 2021) led to substantially larger insulin requirements (90-100 units / day vs 60-70 units / day). PLAN FOR INPATIENT GLYCEMIC CONTROL: * Basal insulin * Lantus 35 units SQ daily - 1st dose now. * DC insulin pump 2 hours after Lantus given * Bolus insulin * NovoLog per scale ACHS today, then convert to Q 4 hrs overnight and during the day tomorrow while NPO * Goal Range: Low 100 mg/dL - High 140 mg/dL * Correction Factor: 35 mg/dL/unit * Nutritional / Prandial insulin per carb ratio of 1 unit per 7 grams CHO consumed * May need to begin maint IVF's containing dextrose tomorrow if NPO status maintained > / = 8 hours PLAN FOR DISCHARGE: * to be determined
--- NOTE | 2021-03-22 13:23 | XRay Report ---
XR chest 1V portable HISTORY: admission pre-op COMPARISON: Chest 03/19/2021. FINDINGS: No pneumothorax or no pleural effusions. No focal lung consolidations to suggest pneumonia. No evidence for pulmonary edema. Heart is normal in size. There are poststernotomy changes and an ao rtic valve prosthesis. IMPRESSION: No significant change compared to the prior study. No acute process. ACT 112: Negative or not required by law. Electronically signed by: Otf Avila M.D. 03/22/2021 1:21 PM
--- NOTE | 2021-03-22 13:57 | Consultation ---
Date of Consultation March 22, 2021 Assessment & Plan (1) Surgical wound, non healing: Pt with nonhealing R lower leg surgical wound, planned for debridement of leg wound and removal of RLE fem-distal BPG in OR tomorrow. Pt discussed with Dr Nguyen, planning to proceed with RLE surgery tomorrow. Care of R heel wound per Dr Soto or Wound Care. Patient was seen, examined, and chart reviewed. Agree with exam and treatment plan of the Vascular PA. History of Present Illness Reason for Consultation: RLE surgical wound Attending Physician: Lui Ellis History of Present Illness 65 yo m with multiple medical problems, including severe PAD s/p LLE fem-distal composite BPG, DMII, CAD, COPD, CKD, aorti stenosis s/p TAVR, admitted with worsening R heel wound/osteomyelitis, seen in consultation today for R leg surgical wound from occluded R fem-pop prosthetic BPG performed in 01/2021. Pt is set to have RLE amputation by Dr Xander Soto, however, this has been delayed d/t R leg nonhealing surgical wound and possible infection. Pt was seen in office last week and scheduled for removal of RLE BPG and debridement of wound in OR tomorrow by Dr Nguyen. Pt states he was seen at wound clinic this AM and told that his heel wound appears significantly worse, so sent him to [facility]. Pt denies BRANHAM, fever, chest pain, SOB, abd pain, NV, rest pain, other complaints. Allergies Allergy/AdvReac Type Severity Reaction Status Date / Time No Known Allergies Allergy Unknown Verified 03/22/21 08:16 Home Medications Medication Instructions Recorded Confirmed Type pantoprazole 40 mg tablet,delayed 40 mg PO QAM #30 tab 04/27/20 03/22/21 Rx release atorvastatin 80 mg tablet 80 mg PO HS #90 tab 11/25/20 03/22/21 Rx gentamicin 0.1 % topical ointment 1 applic TOPICAL ONCE 42 Days #30 g 11/25/20 03/22/21 Rx insulin aspart U-100 100 unit/mL 60 unit SQ UD #20 ml 01/14/21 03/22/21 Rx subcutaneous solution acetaminophen 500 mg tablet 1,000 mg PO Q6 PRN #100 tab 01/28/21 03/22/21 Rx aspirin 81 mg tablet,delayed 81 mg PO QAM #30 tab 01/28/21 03/22/21 Rx release calcitriol 0.25 mcg capsule 0.25 mcg PO QAM #30 cap 01/28/21 03/22/21 Rx chlorthalidone 25 mg tablet 25 mg PO QAM #30 tab 01/28/21 03/22/21 Rx clopidogrel 75 mg tablet 75 mg PO QAM #30 tab 01/28/21 03/22/21 Rx levothyroxine 175 mcg tablet 175 mcg PO QAM #30 tab 01/28/21 03/22/21 Rx oxycodone 5 mg tablet 5 mg PO TID PRN #30 tab 01/28/21 03/22/21 Rx metoprolol tartrate 25 mg tablet 12.5 mg PO BID #90 tab 02/09/21 03/22/21 Rx potassium chloride 20 mEq 20 meq PO BID #60 tab 02/22/21 03/22/21 Rx tablet,extended release daptomycin 500 mg intravenous 500 mg IV DAILY 03/08/21 03/22/21 History solution collagenase clostridium histo. 250 1 applic TOPICAL DAILY 30 Days #30 03/16/21 03/17/21 Rx unit/gram topical ointment g Patient History Medical History Aortic stenosis s/p porcine valve replacement (2015) with CABG x 1 CAD (coronary artery disease) s/p CABG x 1 (2015) Chronic renal disease, stage 3, moderately decreased glomerular filtration rate (GFR) between 30-59 mL/min/1.[address] Lerner Diabetes mellitus type 1 + Insulin pump Diabetic nephropathy associated with type 1 diabetes mellitus Dyslipidemia GERD (gastroesophageal reflux disease) Hypertension Hypothyroidism Insulin pump in place Osteoarthritis Osteoporosis PAD (peripheral artery disease) Proliferative diabetic retinopathy associated with type 1 diabetes mellitus PVD (peripheral vascular disease) s/p B/L iliac artery stents (2014), R common/external iliac (2017), R common femoral endarterectomy (11/2018) with bovine patch. Left femoral to PT composite bypass graft (06/2020) Surgical History H/O cataract extraction R/L H/O endarterectomy R common femoral (11/2018) H/O vascular surgery Right Femoral to Posterior tibial Prosthetic Bypass Graft(Right) History of ankle surgery LEFT ANKLE +HARDWARE REMOVED [place] [place] History of arterial bypass of lower extremity Left femoral to PT composite bypass graft (06/2020) History of cardiac cath x2, most recent 2016 > no stents (subsequent CABG with AVR in 2016) History of carpal tunnel release R/L History of colonoscopy History of coronary artery bypass graft CABG x1 + AVR (2016) History of esophagogastroduodenoscopy (EGD) History of myringotomy History of open reduction and internal fixation (ORIF) procedure LLE () History of skin graft Split Thickness Skin Graft of Left Lateral Ankle (11/18/20): LMA#5, atraumatic x1 at [facility] History of tonsillectomy History of tooth extraction History of umbilical hernia repair Hx of surgical procedure Left Leg Wound Debridement and Irrigation S/P femoropopliteal bypass surgery Right fem-pop bypass graft (01/19/21): Grade 2 view, MAC 3.0, ETT 8.0 at [facility] S/P insertion of iliac artery stent B/L iliac stent placement (2014) 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 Family History Brother Family history of diabetes mellitus Sister Family history of diabetes mellitus Mother Family history of diabetes mellitus Grandmother (Maternal) Family history of diabetes mellitus Uncle Family hx of colon cancer Colorectal cancer Father Family history of esophageal cancer Sister Family history of diabetes mellitus Other No family history of adverse response to anesthesia Denies family history of Ovarian cancer Prostate cancer Myocardial infarction Breast cancer Social History Smoking Status: Former smoker Tobacco Type: Cigarettes and Smokeless Tobacco (Dip or Chew) Cigarettes Per Day: Quit 15 years ago; Second Hand Exposure: No; Do You Dip or Chew Tobacco: No; Tobacco Cessation Education Requested by Patient: No Hx Alcohol Use: No Hx Substance Use: No Preferred Language: Trinidadian Communication Ability: Effective Visual Impairment: No Limitations Hearing Ability: Normal 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 (3804-9981, roughly) caffeine: Yes (coffee, rarely ) during the past year weight has: remained stable Dental Care, Regularly: No Physical Activity Frequency: 1-2 Times per Week Seatbelt Use: always Sunscreen Use: No Gender Identity: Male Assistive Devices: Brace/Splint/Immobilizer, Denture - Upper, Special Shoe, Walker and Wheelchair Assistive Devices Comment: shoe Review of Systems Review of Systems: All systems reviewed & are unremarkable except as noted in HPI & below Physical Exam Constitutional: WD/WN, vitals as above cooperative; not in distress Neck: trachea midline Respiratory: normal respiratory effort, lungs clear to auscultation Auscultation: + diminished lung sounds Cardiovascular: Rate/Rhythm: regular rate and regular rhythm Vessels: femoral pulses present, posterior tibial pulses present (nonpalpable BLE. +doppler LLE. LLE BPG + palpable pulse) and brachial pulses present; + abnormal peripheral pulses Extremities: normal capillary refill (normal LLE, delayed RLE) Gastrointestinal (Abdomen): normal bowel sounds, soft, nontender, no hepatosplenomegaly Musculoskeletal: Extremities: strength 5/5 throughout Skin: + wound (R heel, dressing in place. R medial lower leg with small open surgical woun) Neurologic: moves all extremities; no focal motor deficits and not confused Psychiatric: A+Ox3, euthymic affect Results & Data ([facility]) Vital Signs (Past 12 Hours) Vital Signs Temp Pulse Resp BP Pulse Ox 03/22/21 10:46 36.6 C 85 16 141/78 H 98
[2021-03-22] MEDS ORDERED: [UNRECOGNIZED DRUG - REMARK] ONE (14:00)
[2021-03-22] MEDS: HEPARIN SOD 5,000 UNIT/0.5 ML VIAL SQ SCH ×2 (14:14→21:51)
[2021-03-22] MEDS ORDERED: DAPTOmycin 500 MG VIAL IV SCH (15:00)
--- NOTE | 2021-03-22 16:11 | Orthopedic Consultation ---
Date of Consultation March 22, 2021 Assessment & Plan (1) Osteomyelitis due to type 1 diabetes mellitus: Patient has known right open heel wound with necrosis and osteomyelitis. Things do seem to be worsening. We have been following this for many weeks. Would recommend continued same plan of treatment which would require the I&D and graft removal with Dr. Eason on March 23, 2021. Once this wound is healed and no evidence of drainage or infection is noted he will proceed with a below-knee amputation by Dr. Soto. Dr. Soto is currently out of the office for the next 2 weeks and unavailable. If he takes a turn for the worse medically then we may need to get someone else involved to consider the BKA prior to Dr. Soto's return. In the meantime continue dressing changes and wound treatment as instructed by wound care nurses. Also continue IV antibiotics as prescribed. Patient understands and agrees with the plan. He knows to call with any worsening problems, questions or concerns. He will follow-up as scheduled with Dr. Soto as an outpatient. If he still is in the hospital at the time of Dr. Soto's arrival we will have him be seen and evaluated in the hospital. I will discuss his consult with Dr. Xander Morton. Thank you for the consultation and please call with any questions or concerns. History of Present Illness Reason for Consultation: Osteomyelitis right ankle/heel Attending Physician: Lui Ellis History of Present Illness Patient was admitted today from the wound clinic due to worsening right heel wound. He states that he went there this morning he removed the dressings and states that they could see and feel the bone. They were concerned for this and sent him to the emergency room. He has had no increased pain, swelling or drainage from his heel. He changes the dressings as instructed. He follows with the wound clinic. Is been on his IV daptomycin. He does have scheduled surgery with Dr. Eason tomorrow for an I&D and removal of graft of his right leg. He has been following with Dr. Soto as an outpatient every 2 weeks or so. The plan is to do a below-knee amputation once the draining wound on his proximal leg is healed and avoid of infection. He does have an outpatient appoint with Dr. Soto on April 07. He states otherwise he has been in his normal state of health. No new injury. He has been wearing the cam boot when out of bed. His other wounds on his foot and toes that have been there for a while as well. Allergies Allergy/AdvReac Type Severity Reaction Status Date / Time No Known Allergies Allergy Unknown Verified 03/22/21 08:16 Home Medications Medication Instructions Recorded Confirmed Type pantoprazole 40 mg tablet,delayed 40 mg PO QAM #30 tab 04/27/20 03/22/21 Rx release atorvastatin 80 mg tablet 80 mg PO HS #90 tab 11/25/20 03/22/21 Rx gentamicin 0.1 % topical ointment 1 applic TOPICAL ONCE 42 Days #30 g 11/25/20 03/22/21 Rx insulin aspart U-100 100 unit/mL 60 unit SQ UD #20 ml 01/14/21 03/22/21 Rx subcutaneous solution acetaminophen 500 mg tablet 1,000 mg PO Q6 PRN #100 tab 01/28/21 03/22/21 Rx aspirin 81 mg tablet,delayed 81 mg PO QAM #30 tab 01/28/21 03/22/21 Rx release calcitriol 0.25 mcg capsule 0.25 mcg PO QAM #30 cap 01/28/21 03/22/21 Rx chlorthalidone 25 mg tablet 25 mg PO QAM #30 tab 01/28/21 03/22/21 Rx clopidogrel 75 mg tablet 75 mg PO QAM #30 tab 01/28/21 03/22/21 Rx levothyroxine 175 mcg tablet 175 mcg PO QAM #30 tab 01/28/21 03/22/21 Rx oxycodone 5 mg tablet 5 mg PO TID PRN #30 tab 01/28/21 03/22/21 Rx metoprolol tartrate 25 mg tablet 12.5 mg PO BID #90 tab 02/09/21 03/22/21 Rx potassium chloride 20 mEq 20 meq PO BID #60 tab 02/22/21 03/22/21 Rx tablet,extended release daptomycin 500 mg intravenous 500 mg IV DAILY 03/08/21 03/22/21 History solution collagenase clostridium histo. 250 1 applic TOPICAL DAILY 30 Days #30 03/16/21 03/17/21 Rx unit/gram topical ointment g Patient History Medical History Aortic stenosis s/p porcine valve replacement (2016) with CABG x 1 CAD (coronary artery disease) s/p CABG x 1 (2015) Chronic renal disease, stage 3, moderately decreased glomerular filtration rate (GFR) between 30-59 mL/min/1.[address] Lerner Diabetes mellitus type 1 + Insulin pump Diabetic nephropathy associated with type 1 diabetes mellitus Dyslipidemia GERD (gastroesophageal reflux disease) Hypertension Hypothyroidism Insulin pump in place Osteoarthritis Osteoporosis PAD (peripheral artery disease) Proliferative diabetic retinopathy associated with type 1 diabetes mellitus PVD (peripheral vascular disease) s/p B/L iliac artery stents (2014), R common/external iliac (2017), R common femoral endarterectomy (11/2018) with bovine patch. Left femoral to PT composite bypass graft (06/2020) Surgical History H/O cataract extraction R/L H/O endarterectomy R common femoral (11/2018) H/O vascular surgery Right Femoral to Posterior tibial Prosthetic Bypass Graft(Right) History of ankle surgery LEFT ANKLE +HARDWARE REMOVED History of aortic valve replacement 2016 [place] [place] History of arterial bypass of lower extremity Left femoral to PT composite bypass graft (06/2020) History of cardiac cath x2, most recent 2016 > no stents (subsequent CABG with AVR in 2016) History of carpal tunnel release R/L History of colonoscopy History of coronary artery bypass graft CABG x1 + AVR (2015) History of esophagogastroduodenoscopy (EGD) History of myringotomy History of open reduction and internal fixation (ORIF) procedure LLE () History of skin graft Split Thickness Skin Graft of Left Lateral Ankle (11/18/20): LMA#5, atraumatic x1 at [facility] History of tonsillectomy History of tooth extraction History of umbilical hernia repair Hx of surgical procedure Left Leg Wound Debridement and Irrigation S/P femoropopliteal bypass surgery Right fem-pop bypass graft (01/19/21): Grade 2 view, MAC 3.0, ETT 8.0 at [facility] S/P insertion of iliac artery stent B/L iliac stent placement (2014) 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 Family History Brother Family history of diabetes mellitus Sister Family history of diabetes mellitus Mother Family history of diabetes mellitus Grandmother (Maternal) Family history of diabetes mellitus Uncle Family hx of colon cancer Colorectal cancer Father Family history of esophageal cancer Sister Family history of diabetes mellitus Other No family history of adverse response to anesthesia Denies family history of Ovarian cancer Prostate cancer Myocardial infarction Breast cancer Social History Smoking Status: Former smoker Tobacco Type: Cigarettes and Smokeless Tobacco (Dip or Chew) Cigarettes Per Day: Quit 15 years ago; Second Hand Exposure: No; Do You Dip or Chew Tobacco: No; Tobacco Cessation Education Requested by Patient: No Hx Alcohol Use: No Hx Substance Use: No Preferred Language: Cambodian Communication Ability: Effective Visual Impairment: No Limitations Hearing Ability: Normal Wired Sweatband Cutter Required: No Beliefs That Will Affect Care: None marital status: Current Living Situation: Other Current Living Situation Comment: lives with room mate How many Children do You have: 2 Other Information That Helps Us Care for You: No Feels Safe at Home: Yes Safety Concerns: Feels Safe At This Time Childhood Exposure to Second-Hand Smoke: Yes Diet Comment: Carb Counts. (1270-7905, roughly) caffeine: Yes (coffee, rarely ) during the past year weight has: remained stable Dental Care, Regularly: No Physical Activity Frequency: 1-2 Times per Week Seatbelt Use: always Sunscreen Use: No Gender Identity: Male Assistive Devices: Brace/Splint/Immobilizer, Denture - Upper, Special Shoe, Walker and Wheelchair Assistive Devices Comment: shoe Physical Exam Physical Exam: Right heel wound is evaluated today. There is an open necrotic dried blackened area over the heel into the arch of his foot and up into his Achilles. The base of his Achilles attachment into his calcaneus the calcaneus is palpated and I can get my finger in about an inch and a half. It is not tender with palpation. It does have a foul odor. There is no active drainage. No surrounding erythema. Sensation is diminished due to neuropathy. No peripheral pulses are noted. The most proximal incision with the dressing was not evaluated by myself today. Results & Data ([facility]) Vital Signs (Past 12 Hours) Vital Signs Temp Pulse Resp BP Pulse Ox 03/22/21 15:48 37.8 C H 85 19 114/65 97 03/22/21 10:46 36.6 C 85 16 141/78 H 98 Laboratory Results 03/22/21 03/22/21 03/22/21 Range/Units 13:50 12:42 12:15 WBC (4.8-10.8) K/uL RBC (4.7-6.1) M/uL Hgb (14.0-18.0) g/dL Hct (42-52) % MCV (80-100) fL MCH (25-34) pg MCHC (32-36) g/dL RDW Std Deviation (36.4-46.3) fL RDW Coeff of Chan (11.5-14.5) % Plt Count (130-400) K/uL MPV (7.4-10.4) fL Immature Gran % (Auto) % Neut % (Auto) % Lymph % (Auto) % [place] % (Auto) % Eos % (Auto) % Baso % (Auto) % Neut # (Auto) (1.4-6.5) K/uL Lymph # (Auto) (1.2-3.4) K/uL [place] # (Auto) (0.11-0.59) K/uL Eos # (Auto) (0-0.5) K/uL Baso # (Auto) (0-0.2) K/uL Immature Gran # (Auto) (0.00-0.02) K/uL ESR (0-20) mm/hr PT (9.0-12.0) Seconds INR (0.9-1.1) Sodium (136-145) mmol/L Potassium (3.5-5.1) mmol/L Chloride (98-107) mmol/L Carbon Dioxide (21-32) mmol/L Anion Gap (3-11) BUN (7-18) mg/dl Creatinine (0.6-1.4) mg/dl Est Cr Clr Drug Dosing ml/min Est GFR ( Amer) ml/min Est GFR (Non-Af Amer) ml/min BUN/Creatinine Ratio (10-20) Glucose (70-99) mg/dl POC Glucose (70-99) mg/dl Calcium (8.5-10.1) mg/dl Phosphorus (2.5-4.9) mg/dl Magnesium (1.8-2.4) mg/dl C-Reactive Protein (0-0.29) mg/dl Procalcitonin 0.78 H TSH (0.300-4.500) uIu/ml Free T4 (0.8-1.6) ng/dl Nasal Screen MRSA (PCR) Negative (Negative) Blood Type Pending Antibody Screen Pending 03/22/21 03/22/21 03/22/21 Range/Units 11:16 11:16 11:16 WBC (4.8-10.8) K/uL RBC (4.7-6.1) M/uL Hgb (14.0-18.0) g/dL Hct (42-52) % MCV (80-100) fL MCH (25-34) pg MCHC (32-36) g/dL RDW Std Deviation (36.4-46.3) fL RDW Coeff of Chan (11.5-14.5) % Plt Count (130-400) K/uL MPV (7.4-10.4) fL Immature Gran % (Auto) % Neut % (Auto) % Lymph % (Auto) % [place] % (Auto) % Eos % (Auto) % Baso % (Auto) % Neut # (Auto) (1.4-6.5) K/uL Lymph # (Auto) (1.2-3.4) K/uL [place] # (Auto) (0.11-0.59) K/uL Eos # (Auto) (0-0.5) K/uL Baso # (Auto) (0-0.2) K/uL Immature Gran # (Auto) (0.00-0.02) K/uL ESR (0-20) mm/hr PT 11.1 (9.0-12.0) Seconds INR 1.1 (0.9-1.1) Sodium 130 L (136-145) mmol/L Potassium 2.9 L (3.5-5.1) mmol/L Chloride 91 L (98-107) mmol/L Carbon Dioxide 32 (21-32) mmol/L Anion Gap 7.0 (3-11) BUN 20 H (7-18) mg/dl Creatinine 1.24 (0.6-1.4) mg/dl Est Cr Clr Drug Dosing 67.7 ml/min Est GFR ( Amer) 71.3 ml/min Est GFR (Non-Af Amer) 61.5 ml/min BUN/Creatinine Ratio 16.4 (10-20) Glucose 139 H (70-99) mg/dl POC Glucose (70-99) mg/dl Calcium 9.6 (8.5-10.1) mg/dl Phosphorus 3.2 (2.5-4.9) mg/dl Magnesium 1.8 (1.8-2.4) mg/dl C-Reactive Protein 22.80 H (0-0.29) mg/dl Procalcitonin Cancelled TSH 0.069 L (0.300-4.500) uIu/ml Free T4 1.93 H (0.8-1.6) ng/dl Nasal Screen MRSA (PCR) (Negative) Blood Type Antibody Screen 03/22/21 03/22/21 03/22/21 Range/Units 11:16 11:16 11:15 WBC 22.73 H (4.8-10.8) K/uL RBC 4.25 L (4.7-6.1) M/uL Hgb 10.7 L (14.0-18.0) g/dL Hct 33.4 L (42-52) % MCV 78.6 L (80-100) fL MCH 25.2 (25-34) pg MCHC 32.0 (32-36) g/dL RDW Std Deviation 43.9 (36.4-46.3) fL RDW Coeff of Chan 15.3 H (11.5-14.5) % Plt Count 560 H (130-400) K/uL MPV 9.5 (7.4-10.4) fL Immature Gran % (Auto) 0.4 % Neut % (Auto) 86.5 % Lymph % (Auto) 4.6 % [place] % (Auto) 8.5 % Eos % (Auto) 0.0 % Baso % (Auto) 0.0 % Neut # (Auto) 19.66 H (1.4-6.5) K/uL Lymph # (Auto) 1.04 L (1.2-3.4) K/uL [place] # (Auto) 1.93 H (0.11-0.59) K/uL Eos # (Auto) 0.00 (0-0.5) K/uL Baso # (Auto) 0.01 (0-0.2) K/uL Immature Gran # (Auto) 0.09 H (0.00-0.02) K/uL ESR 86 H (0-20) mm/hr PT (9.0-12.0) Seconds INR (0.9-1.1) Sodium (136-145) mmol/L Potassium (3.5-5.1) mmol/L Chloride (98-107) mmol/L Carbon Dioxide (21-32) mmol/L Anion Gap (3-11) BUN (7-18) mg/dl Creatinine (0.6-1.4) mg/dl Est Cr Clr Drug Dosing ml/min Est GFR ( Amer) ml/min Est GFR (Non-Af Amer) ml/min BUN/Creatinine Ratio (10-20) Glucose (70-99) mg/dl POC Glucose 159 H (70-99) mg/dl Calcium (8.5-10.1) mg/dl Phosphorus (2.5-4.9) mg/dl Magnesium (1.8-2.4) mg/dl C-Reactive Protein (0-0.29) mg/dl Procalcitonin TSH (0.300-4.500) uIu/ml Free T4 (0.8-1.6) ng/dl Nasal Screen MRSA (PCR) (Negative) Blood Type Antibody Screen
[2021-03-22] MEDS: DAPTOmycin 500 MG in SYRINGE 0 ML IV SCH (16:22)
[2021-03-22] MEDS: INSULIN ASPART 100 UNITS/ML 3 ML PEN SC SCH ×2 (17:32→21:49)
--- NOTE | 2021-03-22 17:48 | Electrocardiogram Report ---
Test Reason : Blood Pressure : / mmHG Vent. Rate : 084 BPM Atrial Rate : 084 BPM P-R Int : 160 ms QRS Dur : 150 ms QT Int : 442 ms P-R-T Axes : 045 036 031 degrees QTc Int : 522 ms Sinus rhythm with Premature atrial complexes Right bundle branch block Inferior infarct (cited on or before 31-JUL-2020) Abnormal ECG When compared with ECG of 13-JAN-2021 17:12, Premature atrial complexes are now Present Confirmed by Juni Mahoney ([id number]) on 03/22/2021 5:48:48 PM Referred By: Noemí Garcia Confirmed By:Alexei Mahoney
[2021-03-22] MEDS: ATORVASTATIN 40 MG TAB PO SCH (20:07)
[2021-03-22] MEDS: METOPROLOL TARTRATE 25 MG TAB PO SCH (20:08)
[2021-03-23] MEDS: INSULIN ASPART 100 UNITS/ML 3 ML PEN SC SCH ×6 (00:17→21:29)
[2021-03-23] MEDS: CEFEPIME 2,000 MG in SYRINGE 0 ML IV SCH ×3 (04:17→21:37)
[2021-03-23] MEDS ORDERED: Nursing to Pharmacy Communication SCH (06:00)
[2021-03-23] MEDS: LEVOTHYROXINE SODIUM 175 MCG TABLET PO SCH (06:42)
[2021-03-23] MEDS: HEPARIN SOD 5,000 UNIT/0.5 ML VIAL SQ SCH ×3 (06:42→21:39)
[2021-03-23 07:49] LABS: Basophils # (auto) 0.02 K/uL (0-0.2); Basophils % (auto) 0.1 %; Eosinophils # (auto) 0.04 K/uL (0-0.5); Eosinophils % (auto) 0.3 %; Hematocrit (blood only) 31.4 % (42-52); Immature Granulocytes # (auto) 0.04 K/uL (0.00-0.02); Immature Granulocytes % (auto) 0.3 %; Lymphocytes # (auto) 1.21 K/uL (1.2-3.4); Lymphocytes % (auto) 8.4 %; Mean Corpuscular Hemoglobin 24.9 pg (25-34); Mean Corpuscular Hgb Conc 31.8 g/dL (32-36); Mean Corpuscular Volume 78.3 fL (80-100); Mean Platelet Volume 9.4 fL (7.4-10.4); Monocytes # (auto) 1.42 K/uL (0.11-0.59); Monocytes % (auto) 9.9 %; Neutrophils # (auto) 11.63 K/uL (1.4-6.5); Platelet Count 480 K/uL (130-400); RDW Coefficient of Variation 15.2 % (11.5-14.5); RDW Standard Deviation 43.9 fL (36.4-46.3); Red Blood Count 4.01 M/uL (4.7-6.1); White Blood Count 14.36 K/uL (4.8-10.8)
[2021-03-23] MEDS ORDERED: INSULIN GLARGINE SOLOSTAR 100 UNITS/ML 3 ML PEN SC ONE ×2 (08:00→16:30)
[2021-03-23 08:22] LABS: Calcium 8.5 mg/dl (8.5-10.1); Creatinine Clr Calc Pharmacy 77.8 ml/min; Est GFR (African American) 99.6 ml/min; Est GFR (Non-African American) 85.9 ml/min; Magnesium 1.8 mg/dl (1.8-2.4); Potassium 3.3 mmol/L (3.5-5.1)
[2021-03-23] MEDS: METOPROLOL TARTRATE 25 MG TAB PO SCH ×2 (08:48→21:38)
[2021-03-23] MEDS: PANTOprazole 40 MG TAB PO SCH (08:50)
[2021-03-23] MEDS: POTASSIUM CHLORIDE CRTAB 20 MEQ TABCR PO SCH ×2 (10:16→21:40)
--- NOTE | 2021-03-23 10:21 | Pharmacy Report ---
Pharmacy Glycemic Short Note 2 - Date of Service March 23, 2021 - Glycemic Short BSG Results (Last 24 hours): 03/22/21 03/22/21 03/22/21 11:15 11:16 16:16 Glucose 139 H POC Glucose 159 H 124 H 03/22/21 03/22/21 03/22/21 19:56 21:47 23:57 Glucose POC Glucose 190 H 193 H 185 H 03/23/21 03/23/21 03/23/21 04:19 07:17 07:25 Glucose 193 H POC Glucose 185 H 186 H OUTPATIENT ANTIDIABETIC REGIMEN: * Novolog pump: basal rate 1.3 units/hr; Correction Factor 40mg/dL/uni (if BSG > 120) and Carb Ratio 1 unit per 8gm CHO * A1c = 7.3% 01/21/21 ASSESSMENT: 03/23 * Fasting BSG 186 this AM. Patient has received 35 units basal insulin yesterday + 4 units correctional insulin overnight. * He remains NPO for OR today. Will have ~ 1/2 dose basal at this time with plans to provide the difference this afternoon after diet resumed. * Will continue Q 4 hr Novolog coverage while NPO 03/22 * Type 1 diabetic admitted for worsening RLE infection (chronic R foot osteo with multiple ulcerations) in the setting of DM and severe PAD. * Patient uses Novolog insulin pump. * Pharmacy has been consulted for glycemic control in the past * Plan to convert patient to SQ basal / bolus regimen today as there are plans for patient to undergo surgery tomorrow. Will base initial insulin doses on insulin pump settings as well as data from past admissions. Of note, stressors during last admission (January 2021) led to substantially larger insulin requirements (90-100 units / day vs 60-70 units / day). PLAN FOR INPATIENT GLYCEMIC CONTROL: * Basal insulin * Lantus 15 units SQ x 1 this AM due to NPO status. Plan to provide remainder of basal s/p OR today. Will resume 35 units daily tomorrow. * Bolus insulin * NovoLog Q 4 hrs while NPO * Goal Range: Low 100 mg/dL - High 140 mg/dL * Correction Factor: 35 mg/dL/unit * Nutritional / Prandial insulin per carb ratio of 1 unit per 7 grams CHO consumed * May need to begin maint IVF's containing dextrose tomorrow if NPO status maintained > / = 8 hours PLAN FOR DISCHARGE: * to be determined
--- NOTE | 2021-03-23 12:12 | History & Physical Bridge Note ---
Date of Service March 23, 2021 History & Physical Bridge Note Patient for removal of fem pop bypass of his right lower extremity. I have discussed the risks options and benefits of the procedure with the patient. The patient understands the risks options and benefits and agrees to the procedure. I have examined the patient, reviewed the History & Physical and in the interval since the performance of the History & Physical I have noted the following changes of clinical significance: no changes noted
[2021-03-23] MEDS ORDERED: THROMBIN 5000 UNITS KIT ONE (12:37)
[2021-03-23] MEDS ORDERED: GELATIN SPONGE SZ 100 ONE (12:37)
[2021-03-23] MEDS ORDERED: HEPARIN (PORCINE) 1000 UNIT/ML 10 ML (CATH LAB USE ONLY) ONE (12:37)
--- NOTE | 2021-03-23 12:48 | Anesthesiology Consultation ---
Date of Service March 23, 2021 Assessment & Plan (1) Encounter for pre-operative examination: Chart Review Chart Review: Acceptable Risk for Surgery and Patient NOT seen in Pre Admission Testing Consults Requested none History Surgery Operation Date: 03/23/21 12:00 Proposed Procedures p Removal Right Fem-Pop Bypass, Application of Wound Vac - Floyd Eason MD Height/Weight Height: 5 ft 8 in Weight: 80.4 kg Allergies Allergy/AdvReac Type Severity Reaction Status Date / Time No Known Allergies Allergy Unknown Verified 03/22/21 08:16 Medications Home Medications Medication Instructions Recorded Confirmed Last Taken pantoprazole 40 mg tablet,delayed 40 mg PO QAM #30 tab 04/27/20 03/22/21 01/13/21 release atorvastatin 80 mg tablet 80 mg PO HS #90 tab 11/25/20 03/22/21 01/12/21 gentamicin 0.1 % topical ointment 1 applic TOPICAL ONCE 42 Days #30 g 11/25/20 03/22/21 01/13/21 insulin aspart U-100 100 unit/mL 60 unit SQ UD #20 ml 01/14/21 03/22/21 Unknown subcutaneous solution acetaminophen 500 mg tablet 1,000 mg PO Q6 PRN #100 tab 01/28/21 03/22/21 Unknown aspirin 81 mg tablet,delayed 81 mg PO QAM #30 tab 01/28/21 03/22/21 Unknown release calcitriol 0.25 mcg capsule 0.25 mcg PO QAM #30 cap 01/28/21 03/22/21 Unknown chlorthalidone 25 mg tablet 25 mg PO QAM #30 tab 01/28/21 03/22/21 Unknown clopidogrel 75 mg tablet 75 mg PO QAM #30 tab 01/28/21 03/22/21 Unknown levothyroxine 175 mcg tablet 175 mcg PO QAM #30 tab 01/28/21 03/22/21 Unknown oxycodone 5 mg tablet 5 mg PO TID PRN #30 tab 01/28/21 03/22/21 Unknown metoprolol tartrate 25 mg tablet 12.5 mg PO BID #90 tab 02/09/21 03/22/21 U nknown potassium chloride 20 mEq 20 meq PO BID #60 tab 02/22/21 03/22/21 Unknown tablet,extended release daptomycin 500 mg intravenous 500 mg IV DAILY 03/08/21 03/22/21 Unknown solution collagenase clostridium histo. 250 1 applic TOPICAL DAILY 30 Days #30 03/16/21 03/17/21 Unknown unit/gram topical ointment g Active Medications Generic Name Dose Route Start Last Admin Trade Name Javier PRN Reason Stop Dose Admin Atorvastatin Calcium 80 mg 03/22/21 21:00 03/22/21 20:07 Atorvastatin 40 Mg Tab PO 04/21/21 20:59 80 mg HS LIZZY Administration Heparin Sodium (Porcine) 5,000 units 03/22/21 14:00 03/23/21 06:42 Heparin Sod 5,000 Unit/0.5 Ml Vial SQ 04/21/21 13:59 Not Given Q8 LIZZY Daptomycin 500 mg/ Syringe 10 mls @ 5 mls/min 03/22/21 16:00 03/22/21 16:22 IV 05/03/21 15:59 5 mls/min Q24H LIZZY Administration Protocol Cefepime HCl 2,000 mg/ Syringe 20 mls @ 5 mls/min 03/22/21 12:00 03/23/21 12:04 IV 05/03/21 11:59 5 mls/min Q8H LIZZY Administration Protocol Insulin Aspart 0 units 03/23/21 00:00 03/23/21 12:01 Insulin Aspart 100 Units/Ml 3 Ml Pen SC 04/22/21 00:00 2 units Q4 LIZZY Administration Levothyroxine Sodium 175 mcg 03/23/21 06:30 03/23/21 06:42 Levothyroxine Sodium 175 Mcg Tablet PO 04/22/21 06:29 Not Given DAILYBB LIZZY Metoprolol Tartrate 12.5 mg 03/22/21 21:00 03/23/21 08:48 Metoprolol Tartrate 25 Mg Tab PO 04/21/21 20:59 12.5 mg BID LIZZY Administration Pantoprazole Sodium 40 mg 03/23/21 09:00 03/23/21 08:50 Pantoprazole 40 Mg Tab PO 04/22/21 08:59 Not Given QAM LIZZY Potassium Chloride 20 meq 03/23/21 09:00 03/23/21 10:16 Potassium Chloride Crtab 20 Meq Tabcr PO 03/24/21 09:01 20 meq BID LIZZY Administration NPO Date Last Intake of Fluids: 03/22/21 Time Last Intake of Fluids: 22:30 Last Intake of Fluids Comment: sip water w/med Date Last Intake of Solids: 03/22/21 Time Last Intake of Solids: 21:00 Past Medical History Medical History Aortic stenosis s/p porcine valve replacement (2016) with CABG x 1 CAD (coronary artery disease) s/p CABG x 1 (2016) Chronic renal disease, stage 3, moderately decreased glomerular filtration rate (GFR) between 30-59 mL/min/1.[address] Lerner Diabetes mellitus type 1 + Insulin pump Diabetic nephropathy associated with type 1 diabetes mellitus Dyslipidemia GERD (gastroesophageal reflux disease) Hypertension Hypothyroidism Insulin pump in place Osteoarthritis Osteoporosis PAD (peripheral artery disease) Proliferative diabetic retinopathy associated with type 1 diabetes mellitus PVD (peripheral vascular disease) s/p B/L iliac artery stents (2014), R common/external iliac (2017), R common femoral endarterectomy (11/2018) with bovine patch. Left femoral to PT composite bypass graft (06/2020) Past Family History Family History Brother Family history of diabetes mellitus Sister Family history of diabetes mellitus Mother Family history of diabetes mellitus Grandmother (Maternal) Family history of diabetes mellitus Uncle Family hx of colon cancer Colorectal cancer Father Family history of esophageal cancer Sister Family history of diabetes mellitus Other No family history of adverse response to anesthesia Denies family history of Ovarian cancer Prostate cancer Myocardial infarction Breast cancer Past Surgical History Surgical History H/O cataract extraction R/L H/O endarterectomy R common femoral (11/2018) H/O vascular surgery Right Femoral to Posterior tibial Prosthetic Bypass Graft(Right) History of ankle surgery LEFT ANKLE +HARDWARE REMOVED History of aortic valve replacement 2016 [place] [place] History of arterial bypass of lower extremity Left femoral to PT composite bypass graft (06/2020) History of cardiac cath x2, most recent 2016 > no stents (subsequent CABG with AVR in 2016) History of carpal tunnel release R/L History of colonoscopy History of coronary artery bypass graft CABG x1 + AVR (2016) History of esophagogastroduodenoscopy (EGD) History of myringotomy History of open reduction and internal fixation (ORIF) procedure LLE () History of skin graft Split Thickness Skin Graft of Left Lateral Ankle (11/18/20): LMA#5, atraumatic x1 at [facility] History of tonsillectomy History of tooth extraction History of umbilical hernia repair Hx of surgical procedure Left Leg Wound Debridement and Irrigation S/P femoropopliteal bypass surgery Right fem-pop bypass graft (01/19/21): Grade 2 view, MAC 3.0, ETT 8.0 at [facility] S/P insertion of iliac artery stent B/L iliac stent placement (2014) 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 Social History Smoking Status: Former smoker tobacco type: cigarettes Smoking cigarettes per day: Quit 15 years ago Do You Dip or Chew Tobacco: No Hx Alcohol Use: No Alcohol type: beer alcohol intake frequency: holidays/special occasions only Hx Substance Use: No substance use type: does not use Physical Exam Vital Signs Last Vital Signs Temp 37.0 C 03/23/21 12:25 Pulse 78 03/23/21 12:25 Resp 18 03/23/21 12:25 BP 123/65 03/23/21 12:25 Pulse Ox 99 03/23/21 12:25 Testing Laboratory Results 03/23/21 07:25 03/23/21 07:25 PT 11.1 Seconds (9.0-12.0) 03/22/21 11:16 INR 1.1 (0.9-1.1) 03/22/21 11:16 Blood Type A Positive 03/22/21 13:50 Antibody Screen NEGATIVE 03/22/21 13:50 03/22/21 11:16 Aerobic Blood Culture - Preliminary Blood No growth in Aerobic bottle after 24 hours. Anaerobic Blood Culture - Preliminary No growth in Anaerobic bottle after 24 hours. 03/22/21 11:36 Aerobic Blood Culture - Preliminary Blood No growth in Aerobic bottle after 24 hours. Anaerobic Blood Culture - Preliminary No growth in Anaerobic bottle after 24 hours. 03/23/21 03/23/21 03/23/21 11:23 07:17 04:19 POC Glucose 177 H 186 H 185 H Other Testing Electrocardiogram Date: 01/13/21 Normal sinus rhythm with sinus arrhythmia. Right bundle branch block. Cannot rule out old inferior infarct (cited on or before 07/31/2020 per protection agent review. Echo done 11/20/2020) Chest X-Ray Date: 03/19/21 FINDINGS:The cardiac silhouette is upper limits of normal in size. Prior median sternotomy cardiac valvular prosthesis. Calcified plaque the thoracic aorta. Chronic interstitial coarsening. There is no pneumothorax, pleural effusion or lobar airspace consolidation. Degenerative changes spine. IMPRESSION: Chronic findings as above without acute process. Echocardiogram Date: 11/20/20 EF 55 to 60%. No regional motion abnormality. Mild LAD/RAD. Bioprosthetic aortic valve. No significant aortic regurgitation. Moderate mitral annular calcification. Cardiac Catheterization Date: 10/12/15 Coronary Angiography: 1. Left Main Coronary Artery: Distal LMCA 20%. 2. Left Anterior Descending: Proximal LAD 20%. Mid LAD 50% at bifurcation of 2nd diagonal. Remainder of LAD and diagonal vessels (1, 2, and 3) are without significant CAD. 3. Circumflex: No angiographic evidence of significant CAD with circumflex or obtuse marginal vessels (OM1 and OM2). 4. Right Coronary Artery: Dominant vessel. Ostial RCA appears severely stenotic (70%) with ventricularization of arterial wave-form. Ostial RCA appears heavily calcified. Mid RCA 30%. Distal RCA 40%. Luminal irregularities noted throughout RCA. Large PDA and posterior lateral branch without angiographic evidence of significant CAD. 5. Heavily calcified aortic valve noted on fluoroscopy. Calcifications also noted within the LAD and RCA system. 6. Aortic valve was not crossed and there were no attempts to cross due to known severe aortic stenosis. Impression: 1. Severe ostial RCA CAD suggested. 2. Nonobstructive CAD within remainder of RCA, distal LMCA, and proximal and mid LAD. 3. Known symptomatic severe aortic stenosis. Subsequent CABG x1 + AVR done in 2015*
[2021-03-23] MEDS: LACTATED RINGER'S 1,000 ML IV SCH (12:50)
[2021-03-23] MEDS ORDERED: ATROPINE SULFATE 0.1 MG/ML 10ML SYR IV PRN (12:50)
[2021-03-23] MEDS ORDERED: ONDANSETRON INJ 2 MG/ML 2 ML VIAL IV PRN (12:50)
[2021-03-23] MEDS ORDERED: ePHEDrine sulfate 50 MG/ML AMP IV PRN (12:50)
[2021-03-23] MEDS ORDERED: fentaNYL citrate 100 MCG/2 ML VIAL IV PRN (12:50)
[2021-03-23] MEDS ORDERED: SODIUM CHLORIDE 0.9% 1000ML 1,000 ML IV SCH (13:00)
--- NOTE | 2021-03-23 14:19 | Post Operative Brief Note ---
Immediate Post Op Note v1 Date of Surgery March 23, 2021 Pre & Post Diagnosis Operation Date: 03/23/21 12:00 Pre-Op Diagnosis: DIABETIC FOOT INFECTION Post-Op Diagnosis: DIABETIC FOOT INFECTION I identified the patient and participated in the time-out.: Yes Procedure Operation Date: 03/23/21 12:00 Actual Procedures p Partial Removal Right Fem-Pop Bypass, Application of Wound Vac (11.5x3x3.5)(Right) - Floyd Eason MD Surgeon Floyd Eason MD Cable Splicer Helper MD Jacinto Clements,PAC Estimated Blood Loss 50 Findings Consistent with Post-Op Diagnosis Drains Rodgers Catheter (16FR) Anesthesia Type General Complications none Disposition Accompanied Patient To Recovery: No Disposition: Recovery Room
--- NOTE | 2021-03-23 14:36 | Operative Report ---
Post Operative Report Pre & Post Diagnosis Operation Date: 03/23/21 12:00 Pre-Op Diagnosis: DIABETIC FOOT INFECTION Post-Op Diagnosis: DIABETIC FOOT INFECTION I identified the patient and participated in the time-out.: Yes Procedure Operation Date: 03/23/21 12:00 Actual Procedures p Removal Right Fem-Pop Bypass, Application of Wound Vac(Right) - Floyd Eason MD Surgeon Floyd Eason MD Senior Game Advisor MD Paula ClementsMinarchick,PAC Estimated Blood Loss 50 Findings Consistent with Post-Op Diagnosis (Occluded, but not grossly infected gore graft.) Specimens [place] Graft Cuff for Culture Description of Procedure Patient was placed supine on the operating room table and the right groin was prepped and draped in the usual sterile fashion. The patient was identified and a timeout performed. An incision was made in the right groin and carried down to the level of the previously placed [place] ringed graft using a combination of Bovie electrocautery as well as Metzenbaum scissors. The graft was found just deep to the sartorius. Simultaneously, we made an incision in the medial aspect of the leg approximately 12 cm in length, and carried this incision down with Bovie electrocautery as well as sharp dissection. We were able to expose the distal anastomosis of the previously placed [place] graft, and we were able to dissected free from its fibrin sheath and sling a 2-0 silk tie around it. The distal anastomosis of the graft was clamped, and then tied off proximal and distal to the anastomosis before it was removed. Afterward, we suture-ligated the distal anastomosis using 3-0 silk sutures. We then turned our attention back towards the proximal incision, and brought up the proximal aspect of the graft and a right angle clamp, and we tied off using a 2-0 silk tie. The [place] graft was then cut just distal to the silk tie. We then attempted to clamp the distal aspect of the graft and remove it by applying traction to it and pulling it through the distal incision. There was a significant amount of resistance, and the graft was not able to be removed in its entirety however, the graft did not show any signs of infection above the anastomosis. We were able to remove the graft up to the level of the knee. The graft above the anasotmosis was well incorporated. Afterward attention was turned toward closure of both incisions. The proximal groin incision was closed using a combination of 3-0 Vicryl sutures in the subcutaneous tissue as well as in the dermal layer of tissue. The skin of this incision was then closed using sharri. The more distal incision was then closed with a wound VAC over the top of it. The wound measured 11.5x3x3.5. This was noted to have a satisfactory seal with the wound VAC dressing functioning well at the completion of the case. All instruments sponge and needle counts were correct x2, Dr. Floyd Eason was present and scrubbed for the entirety of the case. I attest to the content of the Intraoperative Record and any orders documented therein. Any exceptions are noted below.
--- NOTE | 2021-03-23 14:56 | Anesthesiology Progress Note ---
Date of Service March 23, 2021 Anesthesia Post Procedure Vital Signs Vital Signs: Temp Pulse Pulse Pulse Resp BP Pulse Ox 03/23/21 14:50 80 20 164/71 H 99 03/23/21 14:40 77 18 153/77 H 100 03/23/21 14:30 36.9 C 74 20 156/74 H 99 03/23/21 12:25 37.0 C 78 18 123/65 99 03/23/21 11:26 37.1 C 78 19 138/80 96 03/23/21 08:25 75 03/23/21 07:20 36.8 C 77 19 138/75 94 03/23/21 03:49 37.5 C 82 18 144/83 H 97 03/22/21 23:58 38.4 C H 81 18 128/67 97 03/22/21 22:19 86 03/22/21 19:06 37.8 C H 82 20 133/77 97 03/22/21 15:48 37.8 C H 85 19 114/65 97 Transfer of Care Handoff Completed per policy Notes Mental Status: alert / awake / arousable Patient Amnestic to Procedure: Yes Nausea / Vomiting: adequately controlled Pain: adequately controlled Airway Patency, RR, SpO2: stable & adequate BP & HR: stable & adequate Hydration State: stable & adequate Anesthetic Complications: no major complications apparent
[2021-03-23] MEDS ORDERED: MoRPHine SULFATE 4 MG/ML 1 ML CARP\\VIAL IV PRN (15:26)
[2021-03-23] MEDS: DAPTOmycin 500 MG in SYRINGE 0 ML IV SCH (17:24)
--- NOTE | 2021-03-23 19:22 | Hospitalist Progress Note ---
Date of Service March 23, 2021 Assessment & Plan (1) Osteomyelitis due to type 1 diabetes mellitus: Chronic ulceration now with worsening of his wound and exposed bone- see culture results from March 15 - Continue Daptomycin 500 mg IV - Cefepime 2 GM IV TID for osteo and pseudomonal coverage- see sensitivities - Surgical consultation Orthopaedics I&D and graft removal with Dr. Eason on March 23, 2021. Once this wound is healed and no evidence of drainage or infection is noted he will proceed with a below-knee amputation by Dr. Soto. - Wound care-vacc placed post op, pt has vac at home and plans on going home in the meantime - wound care consult placed - Continue Aquacel AG and Santyl for now - - Blood cultures pending - non toxic appearance (2) Diabetic ulcer of right heel: vascular graft removal with amputation on going plan (3) Peripheral arterial disease: - Vascular surgery consult placed.03/23/21 Removal Right Fem-Pop Bypass, Application of Wound Vac Surgeon: Floyd Eason - ASA on hold- patient took dose this morning - Plavix has been on hold since per patient reports- On hold (4) Uncontrolled type 1 diabetes mellitus: Insulin pump at home - Has had history of difficult to control while in house - Insulin pump discontinue - Pharmacy consult placed to manage - Basal/bolus insulin - q4 hour glucose checks - Goal <180 (5) Atherosclerosis of [place] artery of lower extremity with ulceration of foot: As above- poor healing vascular ulceration secondary to diabetes (6) Chronic renal disease, stage 3, moderately decreased glomerular filtration rate (GFR) between 30-59 mL/min/1.73 square meter: Continue with blood pressure control and glucose control - Avoid nephrotoxic medications, renally dose medications (7) History of aortic valve replacement: Last ECHO- EF 55-60% with normal function valves - continue with metoprolol - continue with chlorthalidone (8) CAD (coronary artery disease): Continue with BB, ASA, statin (9) Hypertension: Controlled continue as above (10) Hypothyroidism: TSH pending - Continue Synthroid 175 mcg daily Admission and Anticipated Discharge Date Admission Date: March 22, 2021 Subjective pt was seen post operatively does have wound vac in place, leg is warm but with poor cap refill Review of Systems Review of Systems: Mild distress and fatigue no headache, no visual changes no speech or swallowing issues no chest pain, pressure or palpitations no shortness of breath, cough or wheezes no abdominal pain, nausea or vomiting, diarrhea or constipation no dysuria, hematuria or frequency left leg has wound vacc in place poor perfusion no back pain, CVA tenderness or radicular pain no focal signs of weakness peripheral neuropathy is present no complaints of anxiety or depression.. Physical Exam Physical Exam: The patient appeared chronically ill but in no distress Vital signs as documented. Head exam is normocephalic atraumatic Neck is without JVD, thyromegaly, or carotid bruits. Lungs are clear to auscultation, no focal loss of breath sounds Cardiac exam, Rhythm is regular.. No murmurs, rubs or gallops. Abdominal exam reveals normal bowel sounds, soft non tender, no masses RLE with wound mid ghotra area and upper thigh from removal of graft, wound vac in place Neurologic exam is alert and oriented, diabetic neuropathy is present Skin is with surgical wounds Psychologically is without concerns for anxiety or depression Results & Data Results & Data ([facility]) Vital Signs (Past 12 Hours) Vital Signs Temp Pulse Pulse Pulse Resp BP Pulse Ox 03/23/21 16:28 77 16 133/71 94 03/23/21 16:03 84 16 130/71 96 03/23/21 15:28 82 16 117/78 93 03/23/21 15:10 77 20 150/71 H 96 03/23/21 15:00 97.5 F L 78 18 134/77 96 03/23/21 14:50 80 20 164/71 H 99 03/23/21 14:40 77 18 153/77 H 100 03/23/21 14:30 98.4 F 74 20 156/74 H 99 03/23/21 12:25 98.6 F 78 18 123/65 99 03/23/21 11:26 98.8 F 78 19 138/80 96 03/23/21 08:25 75 03/23/21 07:20 98.2 F 77 19 138/75 94 PG Care Time/CCT Total # of Minutes Spent Total Time Spent with Patient: Total time spent is greater than 50% in coordination of care (as documented) at patient's floor/unit and/or counseling patient: Coding Level of Care Code 53427 Subseq Hosp Care Lvl 3 Diagnoses Osteomyelitis due to type 1 diabetes mellitus E10.69; M86.9 Diabetic ulcer of right heel E11.621; L97.419 Diabetes mellitus type: type 1 Peripheral arterial disease I73.9 Uncontrolled type 1 diabetes mellitus E10.65 Glycemic state: with hyperglycemia Atherosclerosis of [place] artery of lower extremity with ulceration of foot I70.25; L97.509 Chronic renal disease, stage 3, moderately decreased glomerular filtration rate (GFR) between 30-59 mL/min/1.73 square meter N18.31 Chronic kidney disease stage 3 subtype: stage 3a (GFR 45-59) History of aortic valve replacement Z95.2 CAD (coronary artery disease) I25.10 Coronary Disease-Associated Artery/Lesion type: [place] artery [place] vs. transplanted heart: [place] heart Associated angina: without angina Hypertension I10 Hypertension type: unspecified Hypothyroidism E03.9 Hypothyroidism type: unspecified (1) Diabetic ulcer of right heel Diabetes mellitus type: type 1 (2) Uncontrolled type 1 diabetes mellitus Glycemic state: with hyperglycemia Qualified Code(s): E10.65 - Type 1 diabetes mellitus with hyperglycemia (3) Chronic renal disease, stage 3, moderately decreased glomerular filtration rate (GFR) between 30-59 mL/min/1.73 square meter Chronic kidney disease stage 3 subtype: stage 3a (GFR 45-59) Qualified Code(s): N18.31 - Chronic kidney disease, stage 3a (4) CAD (coronary artery disease) Coronary Disease-Associated Artery/Lesion type: [place] artery [place] vs. transplanted heart: [place] heart Associated angina: without angina Qualified Code(s): I25.10 - Atherosclerotic heart disease of [place] coronary artery without angina pectoris (5) Hypertension Hypertension type: unspecified Qualified Code(s): I10 - Essential (primary) hypertension (6) Hypothyroidism Hypothyroidism type: unspecified Qualified Code(s): E03.9 - Hypothyroidism, unspecified
[2021-03-23] MEDS: ATORVASTATIN 40 MG TAB PO SCH (21:39)
[2021-03-24] MEDS: INSULIN ASPART 100 UNITS/ML 3 ML PEN SC SCH ×4 (00:14→12:27)
[2021-03-24] MEDS: CEFEPIME 2,000 MG in SYRINGE 0 ML IV SCH ×2 (05:15→11:46)
[2021-03-24] MEDS: LEVOTHYROXINE SODIUM 175 MCG TABLET PO SCH (06:05)
[2021-03-24] MEDS: HEPARIN SOD 5,000 UNIT/0.5 ML VIAL SQ SCH ×2 (06:05→14:30)
[2021-03-24 08:08] LABS: Basophils # (auto) 0.01 K/uL (0-0.2); Basophils % (auto) 0.1 %; Eosinophils % (auto) 0.7 %; Hematocrit (blood only) 31.8 % (42-52); Hemoglobin 9.9 g/dL (14.0-18.0); Immature Granulocytes # (auto) 0.05 K/uL (0.00-0.02); Immature Granulocytes % (auto) 0.3 %; Lymphocytes # (auto) 1.45 K/uL (1.2-3.4); Lymphocytes % (auto) 9.9 %; Mean Corpuscular Hemoglobin 24.7 pg (25-34); Mean Corpuscular Hgb Conc 31.1 g/dL (32-36); Mean Corpuscular Volume 79.3 fL (80-100); Mean Platelet Volume 9.4 fL (7.4-10.4); Monocytes # (auto) 1.26 K/uL (0.11-0.59); Monocytes % (auto) 8.6 %; Neutrophils # (auto) 11.81 K/uL (1.4-6.5); Neutrophils % (auto) 80.4 %; Platelet Count 519 K/uL (130-400); RDW Coefficient of Variation 15.3 % (11.5-14.5); Red Blood Count 4.01 M/uL (4.7-6.1); White Blood Count 14.68 K/uL (4.8-10.8)
[2021-03-24 08:36] LABS: BUN Creatinine Ratio 16.2 (10-20); Calcium 8.9 mg/dl (8.5-10.1); Creatinine Clr Calc Pharmacy 70.3 ml/min; Est GFR (African American) 88.1 ml/min; Est GFR (Non-African American) 76.1 ml/min; Magnesium 1.8 mg/dl (1.8-2.4); Potassium 3.4 mmol/L (3.5-5.1)
[2021-03-24] MEDS ORDERED: INSULIN GLARGINE SOLOSTAR 100 UNITS/ML 3 ML PEN SC SCH (09:00)
[2021-03-24] MEDS: PANTOprazole 40 MG TAB PO SCH (09:26)
[2021-03-24] MEDS: METOPROLOL TARTRATE 25 MG TAB PO SCH (09:26)
[2021-03-24] MEDS: POTASSIUM CHLORIDE CRTAB 20 MEQ TABCR PO SCH (09:26)
--- NOTE | 2021-03-24 11:32 | Pharmacy Report ---
Pharmacy Glycemic Short Note 2 - Date of Service March 24, 2021 - Glycemic Short BSG Results (Last 24 hours): 03/23/21 03/23/21 03/23/21 11:23 14:30 16:09 Glucose POC Glucose 177 H 168 H 172 H 03/23/21 03/23/21 03/24/21 20:09 23:47 04:18 Glucose POC Glucose 197 H 140 H 179 H 03/24/21 03/24/21 07:46 10:41 Glucose 152 H POC Glucose 353 H* OUTPATIENT ANTIDIABETIC REGIMEN: * Novolog pump: basal rate 1.3 units/hr; Correction Factor 40mg/dL/uni (if BSG > 120) and Carb Ratio 1 unit per 8gm CHO * A1c = 7.3% 01/21/21 ASSESSMENT: 03/24/21: * Ron received 48 units of insulin yesterday with good glycemic control. Of note, patient was NPO during this time. * 35 units of basal and 13 units of bolus * Fasting BSG of 152 mg/dL today. Patient is ordered to receive full dose of Lantus 35 units this AM. May need to slightly increase tomorrow. * Diet resumed today. Post prandial BSG elevation with lunch. * Based on previous admission data, patient typically requires tighter carb coverage with breakfast compared to other meals. 03/23 * Fasting BSG 186 this AM. Patient has received 35 units basal insulin yesterday + 4 units correctional insulin overnight. * He remains NPO for OR today. Will have ~ 1/2 dose basal at this time with plans to provide the difference this afternoon after diet resumed. * Will continue Q 4 hr Novolog coverage while NPO 03/22 * Type 1 diabetic admitted for worsening RLE infection (chronic R foot osteo with multiple ulcerations) in the setting of DM and severe PAD. * Patient uses Novolog insulin pump. * Pharmacy has been consulted for glycemic control in the past * Plan to convert patient to SQ basal / bolus regimen today as there are plans for patient to undergo surgery tomorrow. Will base initial insulin doses on insulin pump settings as well as data from past admissions. Of note, stressors during last admission (January 2021) led to substantially larger insulin requirements (90-100 units / day vs 60-70 units / day). PLAN FOR INPATIENT GLYCEMIC CONTROL: * Basal insulin * Lantus 35 units SQ daily * Bolus insulin * NovoLog ACHS * Goal Range: Low 100 mg/dL - High 140 mg/dL Breakfast * Correction Factor: 35 mg/dL/unit * Nutritional / Prandial insulin per carb ratio of 1 unit per 5 grams CHO consumed Lunch/dinner/HS * Correction Factor: 35 mg/dL/unit * Nutritional / Prandial insulin per carb ratio of 1 unit per 7 grams CHO consumed PLAN FOR DISCHARGE: * A1c of 7.3% is acceptable * Continue current insulin pump settings on discharge and follow up with Endocrinology for monitoring/dose adjustments.
--- NOTE | 2021-03-24 12:36 | Surgery Progress Note ---
Date of Service March 24, 2021 Assessment & Plan (1) Peripheral arterial disease: Plan: Doing well after partial removal of his graft. Distal graft removed to above knee level. Rest of graft was well incorporated with surrounding tissue. Will see him as outpatient in 2-3weeks Admission and Anticipated Discharge Date Admission Date: March 22, 2021 Subjective No complaints of right leg pain Physical Exam Constitutional: WD/WN, vitals as above Skin: + incision (dry and clean, wound vac in place) Results & Data ([facility]) Vital Signs (Past 12 Hours) Vital Signs Temp Pulse Pulse Resp BP Pulse Ox 03/24/21 11:33 36.9 C 80 11 L 136/63 97 03/24/21 08:11 36.6 C 81 18 120/67 94 03/24/21 08:00 74 03/24/21 04:00 36.9 C 86 18 116/61 98 03/24/21 00:39 91 H
[2021-03-24] MEDS: LACTATED RINGER'S 1,000 ML IV SCH (14:30)
[2021-03-24] MEDS: DAPTOmycin 500 MG in SYRINGE 0 ML IV SCH (15:20)
--- NOTE | 2021-03-24 18:13 | Discharge Summary ---
Date of Service March 24, 2021 Admission HPI Per Admitting Provider 65 YOM with medical history of: Bioprosthetic AVR (2015), CABG x1 (2015), HTN, HLD, PAD s/p Rt. FEM-POP bypass with PTFE graft 01/19, OA, DM I on chcf insulin pump, CKD III, chronic wound on right heel and right ulcerations of great toe and last two digits of right foot. Patient with complex medical history and chronic wound management to his right lower leg complicated by infected tract following his fem-pop and chronic osteo. Patient with original surgery performed on 01/19 where he underwent the fem-pop bypass grafting to assist with healing his chronic osteomyelitis and chronic wound infection of the right foot. In February the patient had a small area at the midportion incision of his leg that was non healing and required debridement in the office and continued to not progress, he was referred back to the wound care clinic where he had a Wound VAC placed and the wound was further debrided with cultures. He was to have evaluation of surgical tract tomorrow with vascular surgery for ongoing infection. He went to wound clinic today [id number] for follow up of his right heel ulceration. Due to apparent worsening of his right heel ulcer now with a larger portion of bone being exposed, erythema, and extension of his eschar, the patient was referred to [facility] [place] for direct admission to the medicine team. He has had his preoperative clearance as well as anesthetic evaluation performed as outpatient. Ortho consultation and Vascular surgical consultation placed, wound care consult to continue to follow through operative course/hospitalization. He remains on infusion daily of Daptomycin at home. His wound cultures from January and February had no growth. However he had culture with gram stain from wound on left and right leg that grew pseudomonas aeruginosa on 03/15/21. His insulin pump will be discontinued and transitioned to basal bolus insulin. NPO after midnight tonight. He has history of difficulty to control blood glucose levels requiring insulin infusions in the past. He has nonobstructive CAD with mid ostial RCA lesion noted. He has been off his Plavix since Monday and continues on his ASA. Will hold ASA tomorrow. His wound was dressed this morning at wound care. He has been undergoing Santyl, Gentamicin ointment with betadine scrub to eschar as outpatient. His toes are covered with gauze. Wound care to follow as well as adjust dressings tomorrow. Principal Diagnosis removal of vascular graft in face of diabetic foot infection Discharge Exam The patient appeared chronicaly ill Vital signs as documented. Lungs are clear to auscultation and appear unlabored Cardiac exam, Rhythm is regular.. No murmurs, rubs or gallops. Abdominal exam reveals normal bowel sounds, soft non tender, no masses Right lower extremity has a heel ulcer in place there is also a wound VAC to the mid ghotra in an elliptical wound that was the site of removal of his vascular g raft. He also has a wound in his upper thigh as part of the removal of his vascular graft which was in preparation for a below-knee amputation for chronic diabetic osteomyelitis foot infection Neurologic exam is alert and oriented, no focal loss of strength peripheral neuropathy is present Skin is with surgical wounds as listed Psychologically is without concerns for anxiety or depression. Discharge Data Allergies Allergy/AdvReac Type Severity Reaction Status Date / Time No Known Allergies Allergy Unknown Verified 03/22/21 08:16 Consultations 03/22/21 10:41 Consult Vascular Surgery Routine 03/22/21 10:52 Consult Orthopedic Surgery Routine Procedures Performed Operation Date: 03/23/21 12:00 Actual Procedures p Removal Right Fem-Pop Bypass, Application of Wound Vac(Right) - Floyd Eason MD Hospital Course (1) Osteomyelitis due to type 1 diabetes mellitus: Chronic ulceration now with worsening of his wound and exposed bone- see culture results from March 15 - Continue Daptomycin IV at home through chart well until surgery is scheduled in 2 weeks or so - Cefepime 2 GM IV TID for osteo and pseudomonal coverage- see sensitivities - Surgical consultation Orthopaedics I&D and graft removal with Dr. Eason on March 23, 2021. Once this wound is healed and no evidence of drainage or infection is noted he will proceed with a below-knee amputation by Dr. Soto. - Wound care-vacc placed post op, pt has vac at home and plans on going home in the meantime - wound care consult placed - Continue Aquacel AG and Santyl for now - - Blood cultures pending at the time of discharge - non toxic appearance (2) Diabetic ulcer of right heel: vascular graft removal with amputation on going plan (3) Peripheral arterial disease: - Vascular surgery consult placed.03/23/21 Removal Right Fem-Pop Bypass, Application of Wound Vac Surgeon: Floyd Eason - ASA will resume both this and Plavix and hold again prior to surgery in 2 weeks (4) Uncontrolled type 1 diabetes mellitus: Insulin pump at home -Resume insulin pump at home this evening with a snack trying to cover his basal insulin that he received this morning (5) Atherosclerosis of [place] artery of lower extremity with ulceration of foot: As above- poor healing vascular ulceration secondary to diabetes (6) Chronic renal disease, stage 3, moderately decreased glomerular filtration rate (GFR) between 30-59 mL/min/1.73 square meter: Continue with blood pressure control and glucose control - Avoid nephrotoxic medications, renally dose medications (7) History of aortic valve replacement: Last ECHO- EF 55-60% with normal function valves - continue with metoprolol - continue with chlorthalidone (8) CAD (coronary artery disease): Continue with BB, ASA, statin (9) Hypertension: Controlled continue as above (10) Hypothyroidism: TSH pending - Continue Synthroid 175 mcg daily Total Time Total Time Spent Total Time Spent (In Minutes): It required greater than 30 minutes to prepare this patient for discharge Discharge Plan Discharge Items Patient Disposition: Home - Home Health Services Reason For Visit: DIABETIC FOOT INFECTION Discharge Diagnosis: diabetic foot infection Activity: Per Instructions section Activity Comment: elevate leg and avoid bearing weight as much possible Non-emergency contact: Primary Care Provider and Surgeon Call non-emergency contact if: you have any medication questions and your symptoms worsen Follow-up/Referrals: Enio Richards III, MD [Primary Care Provider] - (Dr. Richards is unavailable.) Collette Gorman PA-C [Physician Director [employer]] - 03/31/21 3:00 pm (Dr. Richards is unavailable. Please follow up with Collette Gorman PA-C on Monday03/31/21 at 3:00 pm. Please arrive to the office at 2:45 pm for your appointment. If you are unable to keep this appointment, please call the office to reschedule at [phone]. ) Diet: Carb Consistent or DM2 Addtl Attending Provider Instructions: please continue your insulin pump at home, start tonight after 7 pm but have a snack when you start please contact Dr Soto;s office for further instructions about setting up your surgery certainly try to limit standing on your right leg and elevate your leg when resting wash your wound with soap and water, dry completely and wrap daily Pending Studies at Discharge: Yes Stand-Alone Forms: My [facility], Smoking Cessation Medications and DC Order Prescriptions: Continued Santyl 250 unit/gram ointment 1 applic topical DAILY 30 Days Qty: 30 RF: 2 gentamicin 0.1 % ointment 1 applic topical ONCE 42 Days Qty: 30 RF: 1 pantoprazole [Protonix] 40 mg tablet,delayed release (DR/EC) 40 mg PO QAM Qty: 30 RF: 5 atorvastatin [Lipitor] 80 mg tablet 80 mg PO HS Qty: 90 RF: 3 insulin aspart U-100 [Novolog U-100 Insulin aspart] 100 unit/mL solution 60 unit SQ UD Qty: 20 RF: 5 acetaminophen [Tylenol Extra Strength] 500 mg tablet 1,000 mg PO Q6 PRN (Reason: Pain) Qty: 100 RF: 5 aspirin 81 mg tablet,delayed release (DR/EC) 81 mg PO QAM Qty: 30 RF: 5 calcitriol [Rocaltrol] 0.25 mcg capsule 0.25 mcg PO QAM Qty: 30 RF: 5 chlorthalidone 25 mg tablet 25 mg PO QAM Qty: 30 RF: 5 clopidogrel [Plavix] 75 mg tablet 75 mg PO QAM Qty: 30 RF: 5 levothyroxine 175 mcg tablet 175 mcg PO QAM Qty: 30 RF: 5 oxycodone 5 mg tablet 5 mg PO TID PRN (Reason: Pain) Qty: 30 RF: 0 metoprolol tartrate 25 mg tablet 12.5 mg PO BID Qty: 90 RF: 3 potassium chloride 20 mEq tablet extended release 20 meq PO BID Qty: 60 RF: 5 daptomycin 500 mg recon soln 500 mg IV DAILY Qty: 14 RF: 0 Discontinued daptomycin 500 mg recon soln 500 mg IV DAILY RF: 0 Discharge Orders: Discharge Order (Routine); Ordered 03/24/21 Ordered By: Ron Mares Admission Data Admit Date/Time: 03/22/21 10:02 Attending Provider: Ron Mares Admit Provider: Lui Ellis Primary Care Provider: Enio Richards III Other Providers: [facility],Home Healthcare ; Floyd Eason ; Marko Bergeron ; Arnol Scales ; Enio Dietrich ; Mary Roe ; Cori Graves ; Federico Hayes ; Riky Estrada ; Xander Stoo ; Xander Escudero ; Diane Bland ; Marcos Mitchell ; Ami Hoffmann ; Maria Eugenia Sharp Other Interventions: Discharge Summary Assessment (RN) Last Done: 03/24/21 16:24 Coding Level of Care Code D/C DAY MANAGEMENT >30 MINS Diagnoses Osteomyelitis due to type 1 diabetes mellitus E10.69; M86.9 Diabetic ulcer of right heel E11.621; L97.419 Diabetes mellitus type: type 1 Peripheral arterial disease I73.9 Uncontrolled type 1 diabetes mellitus E10.65 Glycemic state: with hyperglycemia Atherosclerosis of [place] artery of lower extremity with ulceration of foot I70.25; L97.509 Chronic renal disease, stage 3, moderately decreased glomerular filtration rate (GFR) between 30-59 mL/min/1.73 square meter N18.31 Chronic kidney disease stage 3 subtype: stage 3a (GFR 45-59) History of aortic valve replacement Z95.2 CAD (coronary artery disease) I25.10 Coronary Disease-Associated Artery/Lesion type: [place] artery [place] vs. transplanted heart: [place] heart Associated angina: without angina Hypertension I10 Hypertension type: unspecified Hypothyroidism E03.9 Hypothyroidism type: unspecified
== END 2021-03-24 16:45 | disposition home health service (06) | DRG 253 ==
LOC: 1E 10:02 → SUATTDRO 10:02 → 2S 12:25

== ENCOUNTER 2021-03-26 15:01 | Inpatient (IN) ==
[2021-03-26] MEDS ORDERED: ONDANSETRON INJ 2 MG/ML 2 ML VIAL IV PRN (17:27)
[2021-03-26] MEDS ORDERED: ALUMINUM/MAGNESIUM SUSP 30 ML UDC PO PRN (17:27)
[2021-03-26] MEDS ORDERED: oxyCODONE HCL IR 5 MG TAB (IMMEDIATE RELEASE) PO PRN (17:30)
[2021-03-26] MEDS ORDERED: MoRPHine SULFATE 4 MG/ML 1 ML CARP\\VIAL IV PRN (17:34)
[2021-03-26] MEDS ORDERED: MoRPHine SULFATE 2 MG/ML CARP IV PRN (17:34)
--- NOTE | 2021-03-26 18:13 | History & Physical Report ---
Date of Service March 26, 2021 Assessment & Plan (1) Osteomyelitis due to type 1 diabetes mellitus: Plan: Patient continues on daptomycin returns to cefepime 2 g every 8 hours. Orthopedic consultation be undertaken to see if we need to move surgery up (2) COPD (chronic obstructive pulmonary disease): Plan: COPD has been stable will offer as needed nebulizers if needed (3) Chronic renal disease, stage 3, moderately decreased glomerular filtration rate (GFR) between 30-59 mL/min/1.73 square meter: Plan: Patient continues on Calcitrol avoiding nephrotoxic agents (4) Aortic stenosis: Plan: History of aortic stenosis with porcine valve replacement (5) CAD (coronary artery disease): Plan: Patient typically on dual antiplatelets will hold his Plavix continue aspirin until we know surgical times moves forward otherwise we will continue on risk reducing agents of atorvastatin, metoprolol, chlorthalidone for blood pressure control (6) Hypothyroidism: Plan: Suze on Synthroid therapy (7) DVT prophylaxis: Plan: Lovenox for DVT prevention (8) Diabetes type 1, controlled: Plan: Patient on insulin pump at home this will be discontinued glycemic management pharmacy will convert to basal bolus insulin therapy History of Present Illness Primary Care Provider: Enio Richards MD Patient was discharged home on March 24 after having removal of arterial graft from his leg in preparation for BKA. Patient has osteomyelitis due to diabetic foot infection and previously had cultures with VRE and Pseudomonas. His Pseudomonas was previously intermittently sensitive to ciprofloxacin. The patient was on cefepime while in the hospital wanted to go home. We cannot achieve multidosing of cefepime at home with outpatient infusion therapy subsequently the patient went home with daptomycin intravenously and ciprofloxacin orally in hopes we can bridge him until we got to BKA which was scheduled for the end of March. Subsequently the wound nurse called the patient's wound is progressively gotten worse with expansion of his eschar and he was readmitted for to venous antibiotics and repeat orthopedic evaluation to see if we can move his surgery Allergies Allergy/AdvReac Type Severity Reaction Status Date / Time No Known Allergies Allergy Unknown Verified 03/22/21 08:16 Home Medications Medication Instructions Recorded Confirmed Type pantoprazole 40 mg tablet,delayed 40 mg PO QAM #30 tab 04/27/20 03/25/21 Rx release (Protonix) atorvastatin 80 mg tablet (Lipitor) 80 mg PO HS #90 tab 11/25/20 03/25/21 Rx gentamicin 0.1 % topical ointment 1 applic TOPICAL ONCE 42 Days #30 g 11/25/20 03/22/21 Rx insulin aspart U-100 100 unit/mL 60 unit SQ UD #20 ml 01/14/21 03/25/21 Rx subcutaneous solution (Novolog U-100 Insulin aspart) acetaminophen 500 mg tablet 1,000 mg PO Q6 PRN #100 tab 01/28/21 03/25/21 Rx (Tylenol Extra Strength) aspirin 81 mg tablet,delayed 81 mg PO QAM #30 tab 01/28/21 03/25/21 Rx release calcitriol 0.25 mcg capsule 0.25 mcg PO QAM #30 cap 01/28/21 03/25/21 Rx (Rocaltrol) chlorthalidone 25 mg tablet 25 mg PO QAM #30 tab 01/28/21 03/25/21 Rx clopidogrel 75 mg tablet (Plavix) 75 mg PO QAM #30 tab 01/28/21 03/25/21 Rx levothyroxine 175 mcg tablet 175 mcg PO QAM #30 tab 01/28/21 03/25/21 Rx oxycodone 5 mg tablet 5 mg PO TID PRN #30 tab 01/28/21 03/25/21 Rx metoprolol tartrate 25 mg tablet 12.5 mg PO BID #90 tab 02/09/21 03/25/21 Rx potassium chloride 20 mEq 20 meq PO BID #60 tab 02/22/21 03/25/21 Rx tablet,extended release collagenase clostridium histo. 250 1 applic TOPICAL DAILY 30 Days #30 03/16/21 03/25/21 Rx unit/gram topical ointment (Santyl) g ciprofloxacin HCl 500 mg tablet 500 mg PO BID #30 tab 03/24/21 03/25/21 Rx (Cipro) daptomycin 500 mg intravenous 500 mg IV DAILY #14 ea 03/24/21 03/25/21 Rx solution Past Med/Surg History Medical History (Updated 03/26/21 @ 18:12 by Ron Mares MD) Aortic stenosis s/p porcine valve replacement (2015) with CABG x 1 CAD (coronary artery disease) s/p CABG x 1 (2015) Chronic renal disease, stage 3, moderately decreased glomerular filtration rate (GFR) between 30-59 mL/min/1.[address] Lerner Diabetes mellitus type 1 + Insulin pump Diabetic nephropathy associated with type 1 diabetes mellitus Dyslipidemia GERD (gastroesophageal reflux disease) Hypertension Hypothyroidism Insulin pump in place Osteoarthritis Osteoporosis PAD (peripheral artery disease) Proliferative diabetic retinopathy associated with type 1 diabetes mellitus PVD (peripheral vascular disease) s/p B/L iliac artery stents (2014), R common/external iliac (2017), R common femoral endarterectomy (11/2018) with bovine patch. Left femoral to PT composite bypass graft (06/2020) Surgical History H/O cataract extraction R/L H/O endarterectomy R common femoral (11/2018) H/O vascular surgery Right Femoral to Posterior tibial Prosthetic Bypass Graft(Right) History of ankle surgery LEFT ANKLE +HARDWARE REMOVED [place] [place] History of arterial bypass of lower extremity Left femoral to PT composite bypass graft (06/2020) History of cardiac cath x2, most recent 2016 > no stents (subsequent CABG with AVR in 2015) History of carpal tunnel release R/L History of colonoscopy History of coronary artery bypass graft CABG x1 + AVR (2015) History of esophagogastroduodenoscopy (EGD) History of myringotomy History of open reduction and internal fixation (ORIF) procedure LLE () History of skin graft Split Thickness Skin Graft of Left Lateral Ankle (11/18/20): LMA#5, atraumatic x1 at [facility] History of tonsillectomy History of tooth extraction History of umbilical hernia repair Hx of surgical procedure Left Leg Wound Debridement and Irrigation S/P femoropopliteal bypass surgery Right fem-pop bypass graft (01/19/21): Grade 2 view, MAC 3.0, ETT 8.0 at [facility] S/P insertion of iliac artery stent B/L iliac stent placement (2014) 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 Family History Brother Family history of diabetes mellitus Sister Family history of diabetes mellitus Mother Family history of diabetes mellitus Grandmother (Maternal) Family history of diabetes mellitus Uncle Family hx of colon cancer Colorectal cancer Father Family history of esophageal cancer Sister Family history of diabetes mellitus Other No family history of adverse response to anesthesia Denies family history of Ovarian cancer Prostate cancer Myocardial infarction Breast cancer Social History Smoking Status: Former smoker Tobacco Type: Cigarettes and Smokeless Tobacco (Dip or Chew) Cigarettes Per Day: Quit 15 years ago; Second Hand Exposure: No; Hx Alcohol Use: No Hx Substance Use: No Preferred Language: Irish Communication Ability: Effective Visual Impairment: No Limitations Hearing Ability: Normal Stain Dipper Required: No Beliefs That Will Affect Care: None marital status: Current Living Situation: Other Current Living Situation Comment: lives with room mate How many Children do You have: 2 Feels Safe at Home: Yes Childhood Exposure to Second-Hand Smoke: Yes Diet Comment: Carb Counts. ([id number], roughly) caffeine: Yes (coffee, rarely ) during the past year weight has: remained stable Dental Care, Regularly: No Physical Activity Frequency: 1-2 Times per Week Seatbelt Use: always Sunscreen Use: No Gender Identity: Male Assistive Devices: None Review of Systems Review of Systems: Mild distress and fatigue no headache, no visual changes no speech or swallowing issues no chest pain, pressure or palpitations no shortness of breath, cough or wheezes no abdominal pain, nausea or vomiting, diarrhea or constipation no dysuria, hematuria or frequency no focal joint pain or swelling no back pain, CVA tenderness or radicular pain Pain symptoms as sharp with degradation of tissue no focal signs of weakness or numbness or altered sensation no complaints of anxiety or depression.. Physical Exam Physical Exam: The patient appeared well nourished and normally developed. Vital signs as documented. Head exam is normocephalic atraumatic Neck is without JVD, thyromegaly, or carotid bruits. Lungs are clear to auscultation, no focal loss of breath sounds Cardiac exam, Rhythm is regular systolic ejection murmur Abdominal exam reveals normal bowel sounds, soft non tender, no masses Distal extremity with wounds from surgery however there is a large necrotic heel ulceration which appears to be worsened than previous Neurologic exam is alert and oriented, no focal loss of strength or sensation Skin is without bruises or rashes Psychologically is without concerns for anxiety or depression Code Status & VTE Plan VTE Prophylaxis Plan VTE Prophylaxis will be ordered: Yes PG Care Time/CCT Total # of Minutes Spent Total Time Spent with Patient: Total time spent is greater than 50% in coordination of care (as documented) at patient's floor/unit and/or counseling patient: Coding Level of Care Code 37988 Initial Inpt Care Lvl 2 Diagnoses Osteomyelitis due to type 1 diabetes mellitus E10.69; M86.9 COPD (chronic obstructive pulmonary disease) J44.9 Chronic renal disease, stage 3, moderately decreased glomerular filtration rate (GFR) between 30-59 mL/min/1.73 square meter N18.31 Chronic kidney disease stage 3 subtype: stage 3a (GFR 45-59) Aortic stenosis I35.0 CAD (coronary artery disease) I25.10 Coronary Disease-Associated Artery/Lesion type: [place] artery [place] vs. transplanted heart: [place] heart Associated angina: without angina Hypothyroidism E03.9 Hypothyroidism type: unspecified DVT prophylaxis Z29.9 Diabetes type 1, controlled E10.9 (1) Chronic renal disease, stage 3, moderately decreased glomerular filtration rate (GFR) between 30-59 mL/min/1.73 square meter Chronic kidney disease stage 3 subtype: stage 3a (GFR 45-59) Qualified Code(s): N18.31 - Chronic kidney disease, stage 3a (2) CAD (coronary artery disease) Coronary Disease-Associated Artery/Lesion type: [place] artery [place] vs. transplanted heart: [place] heart Associated angina: without angina Qualified Code(s): I25.10 - Atherosclerotic heart disease of [place] coronary artery without angina pectoris (3) Hypothyroidism Hypothyroidism type: unspecified Qualified Code(s): E03.9 - Hypothyroidism, unspecified
[2021-03-26] MEDS ORDERED: PHARMACY GLYCEMIC MGMT CONSULT PRN (18:36)
[2021-03-26] MEDS ORDERED: PATIENT'S HEIGHT AND/OR WEIGHT NEEDED SCH (21:30)
[2021-03-26] MEDS ORDERED: CARBOHYDRATES FOR HYPOGLYCEMIA PO PRN (23:00)
[2021-03-26] MEDS ORDERED: GLUCAGON FOR INJ 1 MG VIAL IM PRN (23:00)
[2021-03-26] MEDS ORDERED: GLUCOSE 40% GEL 15 GM TUBE PO PRN (23:00)
[2021-03-26] MEDS ORDERED: GLUCOSE 10 TABS/TUBE PO PRN (23:00)
[2021-03-26] MEDS ORDERED: DEXTROSE 50% 50 ML SYRINGE IV PRN (23:00)
[2021-03-26] MEDS: ATORVASTATIN 40 MG TAB PO SCH (23:21)
[2021-03-26] MEDS: ENOXAPARIN INJ 40 MG/0.4 ML SYR SQ SCH (23:22)
[2021-03-26] MEDS: CEFEPIME 2,000 MG in SYRINGE 0 ML IV SCH (23:22)
[2021-03-26] MEDS: GENTAMICIN SULFATE 0.1% CR 15 GM TUBE EXT SCH (23:23)
[2021-03-26] MEDS: METOPROLOL TARTRATE 25 MG TAB PO SCH (23:35)
[2021-03-26] MEDS: INSULIN ASPART 100 UNITS/ML 3 ML PEN SC SCH (23:49)
[2021-03-26] MEDS: INSULIN GLARGINE SOLOSTAR 100 UNITS/ML 3 ML PEN SC SCH (23:49)
[2021-03-27] MEDS: ACETAMINOPHEN 325 MG TAB PO PRN (02:23)
[2021-03-27] MEDS: CEFEPIME 2,000 MG in SYRINGE 0 ML IV SCH ×3 (06:17→23:19)
[2021-03-27] MEDS: LEVOTHYROXINE SODIUM 175 MCG TABLET PO SCH (06:17)
[2021-03-27 07:13] LABS: Hemoglobin 9.5 g/dL (14.0-18.0); Mean Corpuscular Hemoglobin 24.4 pg (25-34); Mean Corpuscular Hgb Conc 31.7 g/dL (32-36); Mean Corpuscular Volume 77.1 fL (80-100); Mean Platelet Volume 9.5 fL (7.4-10.4); Platelet Count 508 K/uL (130-400); RDW Coefficient of Variation 15.4 % (11.5-14.5); RDW Standard Deviation 43.5 fL (36.4-46.3); Red Blood Count 3.89 M/uL (4.7-6.1); White Blood Count 15.82 K/uL (4.8-10.8)
[2021-03-27 07:45] LABS: BUN Creatinine Ratio 20.7 (10-20); Calcium 8.9 mg/dl (8.5-10.1); Creatinine Clr Calc Pharmacy 72.4 ml/min; Est GFR (African American) 91.3 ml/min; Est GFR (Non-African American) 78.8 ml/min; Potassium 3.8 mmol/L (3.5-5.1)
--- NOTE | 2021-03-27 08:45 | Hospitalist Progress Note ---
Date of Service March 27, 2021 Assessment & Plan (1) Osteomyelitis due to type 1 diabetes mellitus: Plan: Patient continues on daptomycin returns to cefepime 2 g every 8 hours. Orthopedic consultation be undertaken to see if we need to move surgery up (2) COPD (chronic obstructive pulmonary disease): Plan: COPD has been stable will offer as needed nebulizers if needed (3) Aortic stenosis: Plan: History of aortic stenosis with porcine valve replacement (4) CAD (coronary artery disease): Plan: Patient typically on dual antiplatelets will hold his Plavix continue aspirin until we know surgical times moves forward otherwise we will continue on risk reducing agents of atorvastatin, metoprolol, chlorthalidone for blood pressure control (5) Hypothyroidism: Plan: Suze on Synthroid therapy (6) DVT prophylaxis: Plan: Lovenox for DVT prevention (7) Diabetes type 1, controlled: Plan: Patient on insulin pump at home this will be discontinued glycemic management pharmacy will convert to basal bolus insulin therapy Admission and Anticipated Discharge Date Admission Date: March 26, 2021 Subjective pt has no immediate issues at this time, leg wound has worsened and become more malodorous Review of Systems Review of Systems: Mild distress and fatigue no headache, no visual changes no speech or swallowing issues no chest pain, pressure or palpitations no shortness of breath, cough or wheezes no abdominal pain, nausea or vomiting, diarrhea or constipation no dysuria, hematuria or frequency no focal joint pain or swelling no back pain, CVA tenderness or radicular pain Pain symptoms as sharp with degradation of tissue no focal signs of weakness peripheral neuropathy no complaints of anxiety or depression.. Physical Exam Physical Exam: The patient appeared well nourished and normally developed. Vital signs as documented. Head exam is normocephalic atraumatic Neck is without JVD, thyromegaly, or carotid bruits. Lungs are clear to auscultation, no focal loss of breath sounds Cardiac exam, Rhythm is regular systolic ejection murmur Abdominal exam reveals normal bowel sounds, soft non tender, no masses Distal extremity with wounds from surgery however there is a large necrotic heel ulceration which appears to be worsened than previous Neurologic exam is alert and oriented Skin is without bruises or rashes Psychologically is without concerns for anxiety or depression Results & Data Results & Data ([facility]) Vital Signs (Past 12 Hours) Vital Signs Temp Pulse Resp BP Pulse Ox 03/27/21 08:05 97.5 F L 74 16 121/76 98 03/26/21 23:56 98.2 F 81 16 136/85 98 03/26/21 21:36 97.9 F 93 H 18 139/79 98 PG Care Time/CCT Total # of Minutes Spent Total Time Spent with Patient: Total time spent is greater than 50% in coordination of care (as documented) at patient's floor/unit and/or counseling patient: Coding Level of Care Code 64847 Subseq Hosp Care Lvl 3 Diagnoses Osteomyelitis due to type 1 diabetes mellitus E10.69; M86.9 COPD (chronic obstructive pulmonary disease) J44.9 Aortic stenosis I35.0 CAD (coronary artery disease) I25.10 Associated angina: without angina Coronary Disease-Associated Artery/Lesion type: [place] artery [place] vs. transplanted heart: [place] heart Hypothyroidism E03.9 Hypothyroidism type: unspecified DVT prophylaxis Z29.9 Diabetes type 1, controlled E10.9 (1) CAD (coronary artery disease) Associated angina: without angina Coronary Disease-Associated Artery/Lesion type: [place] artery [place] vs. transplanted heart: [place] heart Qualified Code(s): I25.10 - Atherosclerotic heart disease of [place] coronary artery without angina pectoris (2) Hypothyroidism Hypothyroidism type: unspecified Qualified Code(s): E03.9 - Hypothyroidism, unspecified
[2021-03-27] MEDS ORDERED: DAPTOmycin 500 MG VIAL IV SCH (09:00)
[2021-03-27] MEDS: ASPIRIN 81 MG ECTAB PO SCH (09:08)
[2021-03-27] MEDS: CALCITRIOL 0.25 MCG CAPSULE PO SCH (09:08)
[2021-03-27] MEDS: CHLORTHALIDONE 25 MG TAB PO SCH (09:09)
[2021-03-27] MEDS: METOPROLOL TARTRATE 25 MG TAB PO SCH ×2 (09:09→21:08)
[2021-03-27] MEDS: INSULIN ASPART 100 UNITS/ML 3 ML PEN SC SCH ×4 (09:14→21:09)
--- NOTE | 2021-03-27 11:13 | Pharmacy Report ---
Pharmacy Glycemic Short Note 2 - Date of Service March 27, 2021 - Glycemic Short BSG Results (Last 24 hours): 03/26/21 03/26/21 03/27/21 22:20 23:46 06:41 Glucose 147 H POC Glucose 102 H 168 H 03/27/21 08:04 Glucose POC Glucose 159 H OUTPATIENT ANTIDIABETIC REGIMEN: * A1c 7.3% 01/21/21 * Novolog insulin pump * basal rate 1.3 units/hr * CF 40 mg/dl/unit * Carb ratio: 1 unit per 8 grams CHO ASSESSMENT: * 65 year old male, discharged home on March 24 after having removal of arterial graft from his leg in preparation for BKA later this month on IV Dapto + PO Cipro. Wound worsening, readmitted last night, IV Cefepime + Dapto, ortho eval, may need surgery moved up. * Patient known to glycemic service, managed on insulin pump as outpatient, will use basal bolus insulin as done previously this month * ADA & AACE recommend a goal blood sugar range 140-180 mg/dl for the majority of critically ill & non-critically ill patients. However, more stringent targets may be selected in individual cases. Will utilize more stringent goal of 110-140mg/dl based on patient age & comorbidities. Additionally, tighter glycemic control is warranted to facilitate wound/infection healing. PLAN FOR INPATIENT GLYCEMIC CONTROL: * Basal insulin * Lantus 35 units SQ HS * Bolus insulin * NovoLog per scale ACHS or Q6hrs while NPO * Goal Range: Low 110 mg/dL - High 140 mg/dL * Correction Factor: 35 mg/dL/unit Breakfast: * Nutritional / Prandial insulin per carb ratio of 1 unit per 5 grams CHO consumed Lunch/dinner/HS: * Nutritional / Prandial insulin per carb ratio of 1 unit per 7 grams CHO consumed PLAN FOR DISCHARGE: * Likely OK to resume home insulin pump, A1c 7.3%
[2021-03-27] MEDS: PANTOprazole 40 MG TAB PO SCH (11:29)
[2021-03-27] MEDS: DAPTOmycin 500 MG in SYRINGE 0 ML IV SCH (13:09)
[2021-03-27] MEDS: GENTAMICIN SULFATE 0.1% CR 15 GM TUBE EXT SCH (13:58)
[2021-03-27] MEDS: COLLAGENASE OINT 30 GM TUBE TOP SCH (13:58)
[2021-03-27] MEDS: ATORVASTATIN 40 MG TAB PO SCH (21:08)
[2021-03-27] MEDS: INSULIN GLARGINE SOLOSTAR 100 UNITS/ML 3 ML PEN SC SCH (21:09)
--- NOTE | 2021-03-27 21:40 | Orthopedic Consultation ---
Date of Consultation March 27, 2021 Assessment & Plan (1) Chronic osteomyelitis of right foot: Although the patient clearly needs a below the knee amputation, it is not needed emergently as he is not septic or unstable. From a timing standpoint I think it is fine for him to wait until Dr. Soto returns from his vacation over a week from now so long as he remains medically stable. I discussed with the patient that I did not feel comfortable performing a below-knee amputation through his previous vascular wound. I did speak with Dr. Eason earlier today about the patient and he said he would see him on Monday and be willing to do the amputation for him next week. However, as stated above the patient is fairly insistent that he would like Dr. Soto to be his surgeon. I will sign off at this point. Continue IV antibiotics per the internal medicine and infectious diseases teams. Feel free to contact me with any questions or concerns over the next week. Present on Admission?: Yes (2) Peripheral arterial disease: Present on Admission?: Yes History of Present Illness Reason for Consultation: Right calcaneal osteomyelitis with open draining wound Attending Physician: Ron Mares MD History of Present Illness 65-year-old male, with medical history significant for peripheral vascular disease and diabetes, was discharged home on March 24 after having removal of arterial graft from his right leg in preparation for BKA. Patient has right calcaneal osteomyelitis and previously had cultures with VRE and Pseudomonas. His Pseudomonas was previously intermittently sensitive to ciprofloxacin. The patient was on cefepime while in the hospital wanted to go home. We cannot achieve multidosing of cefepime at home with outpatient infusion therapy subsequently the patient went home with daptomycin intravenously and ciprofloxacin orally in hopes we can bridge him until we got to BKA which was scheduled for the end of March. Subsequently the wound nurse called the patient's wound is progressively gotten worse with expansion of his eschar and he was readmitted for to venous antibiotics. Orthopedics was consulted to see if the patient needed to have his below-knee amputation moved up. Patient was seen and examined on the floor. He reports not having any fevers or chills. Minimal pain. He is adamant that he would like to have Dr. Soto eventually perform his amputation. Allergies Allergy/AdvReac Type Severity Reaction Status Date / Time No Known Allergies Allergy Unknown Verified 03/22/21 08:16 Home Medications Medication Instructions Recorded Confirmed Type pantoprazole 40 mg tablet,delayed 40 mg PO QAM #30 tab 04/27/20 03/25/21 Rx release (Protonix) atorvastatin 80 mg tablet (Lipitor) 80 mg PO HS #90 tab 11/25/20 03/25/21 Rx gentamicin 0.1 % topical ointment 1 applic TOPICAL ONCE 42 Days #30 g 11/25/20 03/22/21 Rx insulin aspart U-100 100 unit/mL 60 unit SQ UD #20 ml 01/14/21 03/25/21 Rx subcutaneous solution (Novolog U-100 Insulin aspart) acetaminophen 500 mg tablet 1,000 mg PO Q6 PRN #100 tab 01/28/21 03/25/21 Rx (Tylenol Extra Strength) aspirin 81 mg tablet,delayed 81 mg PO QAM #30 tab 01/28/21 03/25/21 Rx release calcitriol 0.25 mcg capsule 0.25 mcg PO QAM #30 cap 01/28/21 03/25/21 Rx (Rocaltrol) chlorthalidone 25 mg tablet 25 mg PO QAM #30 tab 01/28/21 03/25/21 Rx clopidogrel 75 mg tablet (Plavix) 75 mg PO QAM #30 tab 01/28/21 03/25/21 Rx levothyroxine 175 mcg tablet 175 mcg PO QAM #30 tab 01/28/21 03/25/21 Rx oxycodone 5 mg tablet 5 mg PO TID PRN #30 tab 01/28/21 03/25/21 Rx metoprolol tartrate 25 mg tablet 12.5 mg PO BID #90 tab 02/09/21 03/25/21 Rx potassium chloride 20 mEq 20 meq PO BID #60 tab 02/22/21 03/25/21 Rx tablet,extended release collagenase clostridium histo. 250 1 applic TOPICAL DAILY 30 Days #30 03/16/21 03/25/21 Rx unit/gram topical ointment (Santyl) g ciprofloxacin HCl 500 mg tablet 500 mg PO BID #30 tab 03/24/21 03/25/21 Rx (Cipro) daptomycin 500 mg intravenous 500 mg IV DAILY #14 ea 03/24/21 03/25/21 Rx solution Patient History Medical History Aortic stenosis s/p porcine valve replacement (2016) with CABG x 1 CAD (coronary artery disease) s/p CABG x 1 (2015) Chronic renal disease, stage 3, moderately decreased glomerular filtration rate (GFR) between 30-59 mL/min/1.[address] Lerner Diabetes mellitus type 1 + Insulin pump Diabetic nephropathy associated with type 1 diabetes mellitus Dyslipidemia GERD (gastroesophageal reflux disease) Hypertension Hypothyroidism Insulin pump in place Osteoarthritis Osteoporosis PAD (peripheral artery disease) Proliferative diabetic retinopathy associated with type 1 diabetes mellitus PVD (peripheral vascular disease) s/p B/L iliac artery stents (2014), R common/external iliac (2017), R common femoral endarterectomy (11/2018) with bovine patch. Left femoral to PT composite bypass graft (06/2020) Surgical History H/O cataract extraction R/L H/O endarterectomy R common femoral (11/2018) H/O vascular surgery Right Femoral to Posterior tibial Prosthetic Bypass Graft(Right) History of ankle surgery LEFT ANKLE +HARDWARE REMOVED [place] [place] of arterial bypass of lower extremity Left femoral to PT composite bypass graft (06/2020) History of cardiac cath x2, most recent 2016 > no stents (subsequent CABG with AVR in 2016) History of carpal tunnel release R/L History of colonoscopy History of coronary artery bypass graft CABG x1 + AVR (2015) History of esophagogastroduodenoscopy (EGD) History of myringotomy History of open reduction and internal fixation (ORIF) procedure LLE () History of skin graft Split Thickness Skin Graft of Left Lateral Ankle (11/18/20): LMA#5, atraumatic x1 at [facility] History of tonsillectomy History of tooth extraction History of umbilical hernia repair Hx of surgical procedure Left Leg Wound Debridement and Irrigation S/P femoropopliteal bypass surgery Right fem-pop bypass graft (01/19/21): Grade 2 view, MAC 3.0, ETT 8.0 at [facility] S/P insertion of iliac artery stent B/L iliac stent placement (2014) 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 Family History Brother Family history of diabetes mellitus Sister Family history of diabetes mellitus Mother Family history of diabetes mellitus Grandmother (Maternal) Family history of diabetes mellitus Uncle Family hx of colon cancer Colorectal cancer Father Family history of esophageal cancer Sister Family history of diabetes mellitus Other No family history of adverse response to anesthesia Denies family history of Ovarian cancer Prostate cancer Myocardial infarction Breast cancer Social History Smoking Status: Former smoker Tobacco Type: Cigarettes and Smokeless Tobacco (Dip or Chew) Cigarettes Per Day: Quit 15 years ago; Second Hand Exposure: No; Hx Alcohol Use: Yes Alcohol type: beer Alcohol Intake Frequency: Monthly or Less Hx Substance Use: No Preferred Language: [place] Communication Ability: Effective Visual Impairment: No Limitations Hearing Ability: Normal Cloud Systems Architect Required: No Beliefs That Will Affect Care: None marital status: Current Living Situation: Other Current Living Situation Comment: Roommate How many Children do You have: 2 Other Information That Helps Us Care for You: No Feels Safe at Home: Yes Safety Concerns: Feels Safe At This Time Childhood Exposure to Second-Hand Smoke: Yes Diet Comment: Carb Counts. ([id number], roughly) caffeine: Yes (coffee, rarely ) during the past year weight has: remained stable Dental Care, Regularly: No Physical Activity Frequency: 1-2 Times per Week Seatbelt Use: always Sunscreen Use: No Gender Identity: Male Assistive Devices: Denture - Upper, Glasses, Walker and Wheelchair Physical Exam Physical Exam: In general he is coherent alert and oriented and appropriately conversant. Examination of his right ankle reveals patient have an open wound with purulent drainage on the posterior aspect of his calcaneus. There is black sharpie marker around the calcaneus with an area of redness inside of the marking as well as normal skin for about 1 cm inside the black marked area. There is some necrotic eschar measuring approximately baseball size diameter over the posterior inferior aspect of the calcaneus just distal to the open draining wound. He has peripheral neuropathy with diminished to near absent sensation in the foot. Results & Data ([facility]) Vital Signs (Past 12 Hours) Vital Signs Temp Pulse Resp BP Pulse Ox 03/27/21 21:16 165/94 H 03/27/21 15:23 36.5 C 74 16 118/73 98
[2021-03-27] MEDS: ENOXAPARIN INJ 40 MG/0.4 ML SYR SQ SCH (23:16)
[2021-03-27] MEDS ORDERED: Nursing to Pharmacy Communication SCH (23:45)
[2021-03-28] MEDS ORDERED: INSULIN ASPART 100 UNITS/ML 3 ML PEN SC ONE ×2 (02:00→14:30)
[2021-03-28] MEDS: CEFEPIME 2,000 MG in SYRINGE 0 ML IV SCH ×3 (06:24→22:56)
[2021-03-28] MEDS: LEVOTHYROXINE SODIUM 175 MCG TABLET PO SCH (06:24)
[2021-03-28 06:28] LABS: BUN Creatinine Ratio 19.9 (10-20); Calcium 8.8 mg/dl (8.5-10.1); Est GFR (African American) 98.3 ml/min; Est GFR (Non-African American) 84.9 ml/min; Potassium 2.9 mmol/L (3.5-5.1)
[2021-03-28] MEDS ORDERED: MAGNESIUM SULFATE / D5W 1 GM/100 ML BAG IV ONE (08:00)
[2021-03-28] MEDS ORDERED: POTASSIUM CHLORIDE 10 MEQ / 100ML WTR IV STA (08:04)
[2021-03-28] MEDS: INSULIN ASPART 100 UNITS/ML 3 ML PEN SC SCH ×4 (09:43→21:35)
[2021-03-28] MEDS: CALCITRIOL 0.25 MCG CAPSULE PO SCH (09:55)
[2021-03-28] MEDS: ASPIRIN 81 MG ECTAB PO SCH (09:55)
[2021-03-28] MEDS: PANTOprazole 40 MG TAB PO SCH (09:55)
[2021-03-28] MEDS: METOPROLOL TARTRATE 25 MG TAB PO SCH ×2 (09:55→21:37)
[2021-03-28] MEDS: CHLORTHALIDONE 25 MG TAB PO SCH (09:55)
[2021-03-28] MEDS: POTASSIUM CHLORIDE CRTAB 20 MEQ TABCR PO SCH ×2 (09:55→21:42)
[2021-03-28] MEDS: POTASSIUM CHLORIDE / WTR 10 MEQ/100 ML PLCT IV SCH ×3 (09:59→12:51)
--- NOTE | 2021-03-28 10:22 | Pharmacy Report ---
Pharmacy Glycemic Short Note 2 - Date of Service March 28, 2021 - Glycemic Short BSG Results (Last 24 hours): 03/27/21 03/27/21 03/27/21 12:31 17:06 20:24 Glucose POC Glucose 230 H 216 H 322 H* 03/27/21 03/28/21 03/28/21 20:26 01:43 05:18 Glucose 227 H POC Glucose 301 H* 253 H 03/28/21 07:58 Glucose POC Glucose 240 H OUTPATIENT ANTIDIABETIC REGIMEN: * A1c 7.3% 01/21/21 * Novolog insulin pump * basal rate 1.3 units/hr * CF 40 mg/dl/unit * Carb ratio: 1 unit per 8 grams CHO ASSESSMENT: 03/28/21 * Pt has received 78 units of insulin over the past 24hrs * 35 units of basal with Lantus * 43 units of bolus with NovoLog * BSGs 147-301 mg/dl * Blood sugars marck throughout the day, will tighten CF/CR * No change in basal at this time, want to make one change at a time with sensitive type 1 diabetic * BKA is not needed emergently as he is not septic or unstable, pt prefers to wait for Dr Soto to return to do the surgery, Dr Eason to see patient Monday regarding surgery as patient has previous vascular wound. 03/27/21 * 65 year old male, discharged home on March 24 after having removal of arterial graft from his leg in preparation for BKA later this month on IV Dapto + PO Cipro. Wound worsening, readmitted last night, IV Cefepime + Dapto, ortho eval, may need surgery moved up. * Patient known to glycemic service, managed on insulin pump as outpatient, will use basal bolus insulin as done previously this month * ADA & AACE recommend a goal blood sugar range 140-180 mg/dl for the majority of critically ill & non-critically ill patients. However, more stringent targets may be selected in individual cases. Will utilize more stringent goal of 110-140mg/dl based on patient age & comorbidities. Additionally, tighter glycemic control is warranted to facilitate wound/infection healing. PLAN FOR INPATIENT GLYCEMIC CONTROL: * Basal insulin * Lantus 35 units SQ HS * Bolus insulin -tighten CF AND CR * NovoLog per scale ACHS or Q6hrs while NPO * Goal Range: Low 110 mg/dL - High 140 mg/dL * Correction Factor: 25 mg/dL/unit Breakfast: * Nutritional / Prandial insulin per carb ratio of 1 unit per 5 grams CHO consumed Lunch/dinner/HS: * Nutritional / Prandial insulin per carb ratio of 1 unit per 5 grams CHO consumed PLAN FOR DISCHARGE: * Likely OK to resume home insulin pump, A1c 7.3%
[2021-03-28] MEDS ORDERED: INSULIN HUMAN REGULAR PER UNIT 4 UNITS in SYRINGE 3.96 ML IV ONE (12:30)
--- NOTE | 2021-03-28 13:10 | Hospitalist Progress Note ---
Date of Service March 28, 2021 Assessment & Plan (1) Osteomyelitis due to type 1 diabetes mellitus: Plan: Patient continues on daptomycin returns to cefepime 2 g every 8 hours. Orthopedic consultation be undertaken to see if we need to move surgery up (2) COPD (chronic obstructive pulmonary disease): Plan: COPD has been stable will offer as needed nebulizers if needed (3) Aortic stenosis: Plan: History of aortic stenosis with porcine valve replacement (4) CAD (coronary artery disease): Plan: Patient typically on dual antiplatelets will hold his Plavix continue aspirin until we know surgical times moves forward otherwise we will continue on risk reducing agents of atorvastatin, metoprolol, chlorthalidone for blood pressure control (5) Hypothyroidism: Plan: Suze on Synthroid therapy (6) DVT prophylaxis: Plan: Lovenox for DVT prevention (7) Diabetes type 1, controlled: Plan: Patient on insulin pump at home this will be discontinued glycemic management pharmacy will convert to basal bolus insulin therapy Admission and Anticipated Discharge Date Admission Date: March 26, 2021 Subjective pt has no immediate issues at this time, leg wound has worsened and become more malodorous, upper thigh wound inspected and is C/D/I Review of Systems Review of Systems: Mild distress and fatigue no headache, no visual changes no speech or swallowing issues no chest pain, pressure or palpitations no shortness of breath, cough or wheezes no abdominal pain, nausea or vomiting, diarrhea or constipation no dysuria, hematuria or frequency gnagrene to right heel no back pain, CVA tenderness or radicular pain Pain symptoms as sharp with degradation of tissue no focal signs of weakness peripheral neuropathy no complaints of anxiety or depression.. Physical Exam Physical Exam: The patient appeared well nourished and normally developed. Vital signs as documented. Head exam is normocephalic atraumatic Neck is without JVD, thyromegaly, or carotid bruits. Lungs are clear to auscultation, no focal loss of breath sounds Cardiac exam, Rhythm is regular systolic ejection murmur Abdominal exam reveals normal bowel sounds, soft non tender, no masses Distal extremity with wounds from surgery however there is a large necrotic heel ulceration which appears to be worsened than previous Neurologic exam is alert and oriented Psychologically is without concerns for anxiety or depression Results & Data Results & Data ([facility]) Vital Signs (Past 12 Hours) Vital Signs Temp Pulse Pulse Resp BP Pulse Ox 03/28/21 09:53 76 130/80 03/28/21 07:55 98.1 F 76 18 129/75 96 PG Care Time/CCT Total # of Minutes Spent Total Time Spent with Patient: Total time spent is greater than 50% in coordination of care (as documented) at patient's floor/unit and/or counseling patient: Coding Level of Care Code 70995 Subseq Hosp Care Lvl 2 Diagnoses Osteomyelitis due to type 1 diabetes mellitus E10.69; M86.9 COPD (chronic obstructive pulmonary disease) J44.9 Aortic stenosis I35.0 CAD (coronary artery disease) I25.10 Coronary Disease-Associated Artery/Lesion type: [place] artery [place] vs. transplanted heart: [place] heart Associated angina: without angina Hypothyroidism E03.9 Hypothyroidism type: unspecified DVT prophylaxis Z29.9 Diabetes type 1, controlled E10.9 (1) CAD (coronary artery disease) Coronary Disease-Associated Artery/Lesion type: [place] artery [place] vs. transplanted heart: [place] heart Associated angina: without angina Qualified Code(s): I25.10 - Atherosclerotic heart disease of [place] coronary artery without angina pectoris (2) Hypothyroidism Hypothyroidism type: unspecified Qualified Code(s): E03.9 - Hypothyroidism, unspecified
[2021-03-28] MEDS: DAPTOmycin 500 MG in SYRINGE 0 ML IV SCH (13:41)
[2021-03-28] MEDS ORDERED: INSULIN HUMAN REGULAR PER UNIT 7 UNITS in SYRINGE 6.93 ML IV ONE (15:30)
[2021-03-28] MEDS: GENTAMICIN SULFATE 0.1% CR 15 GM TUBE EXT SCH (16:28)
[2021-03-28] MEDS: COLLAGENASE OINT 30 GM TUBE TOP SCH (16:28)
[2021-03-28] MEDS: INSULIN GLARGINE SOLOSTAR 100 UNITS/ML 3 ML PEN SC SCH (21:36)
[2021-03-28] MEDS: ATORVASTATIN 40 MG TAB PO SCH (21:43)
[2021-03-28] MEDS: ENOXAPARIN INJ 40 MG/0.4 ML SYR SQ SCH (22:56)
[2021-03-28] MEDS: MELATONIN 3 MG TAB PO PRN (23:42)
[2021-03-29] MEDS ORDERED: INSULIN ASPART 100 UNITS/ML 3 ML PEN SC SCH ×2 (02:00→16:30)
[2021-03-29 06:03] LABS: Hematocrit (blood only) 31.3 % (42-52); Hemoglobin 9.9 g/dL (14.0-18.0); Mean Corpuscular Hemoglobin 25.1 pg (25-34); Mean Corpuscular Hgb Conc 31.6 g/dL (32-36); Mean Corpuscular Volume 79.2 fL (80-100); Mean Platelet Volume 9.1 fL (7.4-10.4); Platelet Count 515 K/uL (130-400); RDW Coefficient of Variation 15.3 % (11.5-14.5); RDW Standard Deviation 44.6 fL (36.4-46.3); Red Blood Count 3.95 M/uL (4.7-6.1); White Blood Count 14.71 K/uL (4.8-10.8)
[2021-03-29] MEDS: CEFEPIME 2,000 MG in SYRINGE 0 ML IV SCH ×3 (06:21→23:59)
[2021-03-29] MEDS: LEVOTHYROXINE SODIUM 175 MCG TABLET PO SCH (06:21)
[2021-03-29 06:30] LABS: BUN Creatinine Ratio 20.5 (10-20); Calcium 9.5 mg/dl (8.5-10.1); Creatinine Clr Calc Pharmacy 85.1 ml/min; Est GFR (Non-African American) 92.3 ml/min; Potassium 3.8 mmol/L (3.5-5.1)
[2021-03-29] MEDS: CALCITRIOL 0.25 MCG CAPSULE PO SCH (09:10)
[2021-03-29] MEDS: METOPROLOL TARTRATE 25 MG TAB PO SCH ×2 (09:10→21:25)
[2021-03-29] MEDS: CHLORTHALIDONE 25 MG TAB PO SCH (09:10)
[2021-03-29] MEDS: ASPIRIN 81 MG ECTAB PO SCH (09:10)
[2021-03-29] MEDS: PANTOprazole 40 MG TAB PO SCH (09:11)
[2021-03-29] MEDS: POTASSIUM CHLORIDE CRTAB 20 MEQ TABCR PO SCH (09:11)
[2021-03-29] MEDS: INSULIN ASPART 100 UNITS/ML 3 ML PEN SC SCH ×4 (09:13→21:14)
--- NOTE | 2021-03-29 09:43 | Consultation ---
Date of Consultation March 29, 2021 Assessment & Plan (1) Peripheral arterial disease: Pt R calf wound healing well since removal of BPG and debridement. Will continue with wound vac for calf wound. History of Present Illness Reason for Consultation: known to Dr Eason Attending Physician: Ron Mares MD History of Present Illness 65 yo m with multiple medical problems, well known to Dr Eason for multiple vascular procedures, seen in f/u today s/p R leg removal of prosthetic BPG and debridement with wound vac placement last week. Pt was discharged, but then readmitted d/t worsening infection in R heel wound. Is to be scheduled for RLE BKA by Orthopedics, Dr Soto, but waiting on healing of R calf wound first. Pt denies any new complaints. Allergies Allergy/AdvReac Type Severity Reaction Status Date / Time No Known Allergies Allergy Unknown Verified 03/22/21 08:16 Home Medications Medication Instructions Recorded Confirmed Type pantoprazole 40 mg tablet,delayed 40 mg PO QAM #30 tab 04/27/20 03/25/21 Rx release (Protonix) atorvastatin 80 mg tablet (Lipitor) 80 mg PO HS #90 tab 11/25/20 03/25/21 Rx gentamicin 0.1 % topical ointment 1 applic TOPICAL ONCE 42 Days #30 g 11/25/20 03/22/21 Rx insulin aspart U-100 100 unit/mL 60 unit SQ UD #20 ml 01/14/21 03/25/21 Rx subcutaneous solution (Novolog U-100 Insulin aspart) acetaminophen 500 mg tablet 1,000 mg PO Q6 PRN #100 tab 01/28/21 03/25/21 Rx (Tylenol Extra Strength) aspirin 81 mg tablet,delayed 81 mg PO QAM #30 tab 01/28/21 03/25/21 Rx release calcitriol 0.25 mcg capsule 0.25 mcg PO QAM #30 cap 01/28/21 03/25/21 Rx (Rocaltrol) chlorthalidone 25 mg tablet 25 mg PO QAM #30 tab 01/28/21 03/25/21 Rx clopidogrel 75 mg tablet (Plavix) 75 mg PO QAM #30 tab 01/28/21 03/25/21 Rx levothyroxine 175 mcg tablet 175 mcg PO QAM #30 tab 01/28/21 03/25/21 Rx oxycodone 5 mg tablet 5 mg PO TID PRN #30 tab 01/28/21 03/25/21 Rx metoprolol tartrate 25 mg tablet 12.5 mg PO BID #90 tab 02/09/21 03/25/21 Rx potassium chloride 20 mEq 20 meq PO BID #60 tab 02/22/21 03/25/21 Rx tablet,extended release collagenase clostridium histo. 250 1 applic TOPICAL DAILY 30 Days #30 03/16/21 03/25/21 Rx unit/gram topical ointment (Santyl) g ciprofloxacin HCl 500 mg tablet 500 mg PO BID #30 tab 03/24/21 03/25/21 Rx (Cipro) daptomycin 500 mg intravenous 500 mg IV DAILY #14 ea 03/24/21 03/25/21 Rx solution Patient History Medical History Aortic stenosis s/p porcine valve replacement (2015) with CABG x 1 CAD (coronary artery disease) s/p CABG x 1 (2015) Chronic renal disease, stage 3, moderately decreased glomerular filtration rate (GFR) between 30-59 mL/min/1.[address] Lerner Diabetes mellitus type 1 + Insulin pump Diabetic nephropathy associated with type 1 diabetes mellitus Dyslipidemia GERD (gastroesophageal reflux disease) Hypertension Hypothyroidism Insulin pump in place Osteoarthritis Osteoporosis PAD (peripheral artery disease) Proliferative diabetic retinopathy associated with type 1 diabetes mellitus PVD (peripheral vascular disease) s/p B/L iliac artery stents (2014), R common/external iliac (2017), R common femoral endarterectomy (11/2018) with bovine patch. Left femoral to PT composite bypass graft (06/2020) Surgical History H/O cataract extraction R/L H/O endarterectomy R common femoral (11/2018) H/O vascular surgery Right Femoral to Posterior tibial Prosthetic Bypass Graft(Right) History of ankle surgery LEFT ANKLE +HARDWARE REMOVED [place] [place] of arterial bypass of lower extremity Left femoral to PT composite bypass graft (06/2020) History of cardiac cath x2, most recent 2016 > no stents (subsequent CABG with AVR in 2016) History of carpal tunnel release R/L History of colonoscopy History of coronary artery bypass graft CABG x1 + AVR (2016) History of esophagogastroduodenoscopy (EGD) History of myringotomy History of open reduction and internal fixation (ORIF) procedure LLE (1970s) History of skin graft Split Thickness Skin Graft of Left Lateral Ankle (11/18/20): LMA#5, atraumatic x1 at [facility] History of tonsillectomy History of tooth extraction History of umbilical hernia repair Hx of surgical procedure Left Leg Wound Debridement and Irrigation S/P femoropopliteal bypass surgery Right fem-pop bypass graft (01/19/21): Grade 2 view, MAC 3.0, ETT [address] 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 Family History Brother Family history of diabetes mellitus Sister Family history of diabetes mellitus Mother Family history of diabetes mellitus Grandmother (Maternal) Family history of diabetes mellitus Uncle Family hx of colon cancer Colorectal cancer Father Family history of esophageal cancer Sister Family history of diabetes mellitus Other No family history of adverse response to anesthesia Denies family history of Ovarian cancer Prostate cancer Myocardial infarction Breast cancer Social History Smoking Status: Former smoker Tobacco Type: Cigarettes and Smokeless Tobacco (Dip or Chew) Cigarettes Per Day: Quit 15 years ago; Second Hand Exposure: No; Hx Alcohol Use: Yes Alcohol type: beer Alcohol Intake Frequency: Monthly or Less Hx Substance Use: No Preferred Language: Mozambican Communication Ability: Effective Visual Impairment: No Limitations Hearing Ability: Normal Floor Coverings Installer Required: No Beliefs That Will Affect Care: None marital status: Current Living Situation: Other Current Living Situation Comment: Roommate How many Children do You have: 2 Other Information That Helps Us Care for You: No Feels Safe at Home: Yes Safety Concerns: Feels Safe At This Time Childhood Exposure to Second-Hand Smoke: Yes Diet Comment: Carb Counts. (4915-6150, roughly) caffeine: Yes (coffee, rarely ) during the past year weight has: remained stable Dental Care, Regularly: No Physical Activity Frequency: 1-2 Times per Week Seatbelt Use: always Sunscreen Use: No Gender Identity: Male Assistive Devices: None Review of Systems Review of Systems: All systems reviewed & are unremarkable except as noted in HPI & below Physical Exam Constitutional: WD/WN, vitals as above Skin: + incision (dry and clean, wound vac in place) R calf wound with excellent granulation noted, vac removed and replaced. Results & Data ([facility]) Vital Signs (Past 12 Hours) Vital Signs Temp Pulse Resp BP Pulse Ox 03/29/21 06:23 36.8 C 69 16 119/70 96 03/29/21 00:11 37 C 71 16 103/61 97
[2021-03-29] MEDS: DAPTOmycin 500 MG in SYRINGE 0 ML IV SCH (12:03)
--- NOTE | 2021-03-29 13:39 | Pharmacy Report ---
Pharmacy Glycemic Short Note 2 - Date of Service March 29, 2021 - Glycemic Short BSG Results (Last 24 hours): 03/28/21 03/28/21 03/28/21 15:06 15:07 15:09 Glucose POC Glucose 363 H* 348 H* 310 H* 03/28/21 03/28/21 03/29/21 17:19 20:40 01:48 Glucose POC Glucose 204 H 269 H 122 H 03/29/21 03/29/21 03/29/21 05:50 08:07 12:07 Glucose 125 H POC Glucose 129 H 285 H OUTPATIENT ANTIDIABETIC REGIMEN: * A1c 7.3% 01/21/21 * Novolog insulin pump * basal rate 1.3 units/hr * CF 40 mg/dl/unit * Carb ratio: 1 unit per 8 grams CHO ASSESSMENT: 03/29/21 * Patient received total of 126 units of insulin yesterday, of which only 35 units were basal insulin * Fasting BSG within range at 125 mg/dL - will continue same Lantus for now * Tightened CR this AM - will continue same. Unclear if the infection is related to increase need in insulin during hospital stay. Ideally would like more of a 50/50 split with basal/bolus insulin. Could consider adjustment of basal tomorrow if insulin needs remain increased 03/28/21 * Pt has received 78 units of insulin over the past 24hrs * 35 units of basal with Lantus * 43 units of bolus with NovoLog * BSGs 147-301 mg/dl * Blood sugars marck throughout the day, will tighten CF/CR * No change in basal at this time, want to make one change at a time with sensitive type 1 diabetic * BKA is not needed emergently as he is not septic or unstable, pt prefers to wait for Dr Soto to return to do the surgery, Dr Eason to see patient Monday regarding surgery as patient has previous vascular wound. 03/27/21 * 65 year old male, discharged home on March 24 after having removal of arterial graft from his leg in preparation for BKA later this month on IV Dapto + PO Cipro. Wound worsening, readmitted last night, IV Cefepime + Dapto, ortho eval, may need surgery moved up. * Patient known to glycemic service, managed on insulin pump as outpatient, will use basal bolus insulin as done previously this month * ADA & AACE recommend a goal blood sugar range 140-180 mg/dl for the majority of critically ill & non-critically ill patients. However, more stringent targets may be selected in individual cases. Will utilize more stringent goal of 110-140mg/dl based on patient age & comorbidities. Additionally, tighter glycemic control is warranted to facilitate wound/infection healing. PLAN FOR INPATIENT GLYCEMIC CONTROL: * Basal insulin * Lantus 35 units SQ HS * Bolus insulin -tighten CF AND CR * NovoLog per scale ACHS or Q6hrs while NPO * Goal Range: Low 110 mg/dL - High 140 mg/dL * Correction Factor: 20 mg/dL/unit Breakfast: * Nutritional / Prandial insulin per carb ratio of 1 unit per 4 grams CHO consumed Lunch/dinner/HS: * Nutritional / Prandial insulin per carb ratio of 1 unit per 4 grams CHO consumed PLAN FOR DISCHARGE: * Likely OK to resume home insulin pump, A1c 7.3%
--- NOTE | 2021-03-29 15:31 | Hospitalist Progress Note ---
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 Orthopedic consultation feels leg wound where wound vacc is placed would need to heal some prior to attempted closure, this wounds healing will be affected by the removed, failed, arterial graft that was removed 03/22. plans would be to continue iv antibiotics due to multidrug resistance and have re assesment next week by Dr Soto. Case management is looking into options for treatment out of the hospital (2) COPD (chronic obstructive pulmonary disease): Plan: COPD has been stable will offer as needed nebulizers if needed (3) Aortic stenosis: Plan: History of aortic stenosis with porcine valve replacement (4) CAD (coronary artery disease): Plan: Patient typically on dual antiplatelets will hold his Plavix continue aspirin until we know surgical times moves forward otherwise we will continue on risk reducing agents of atorvastatin, metoprolol, chlorthalidone for blood pressure control (5) Hypothyroidism: Plan: Suze on Synthroid therapy (6) DVT prophylaxis: Plan: Lovenox for DVT prevention (7) Diabetes type 1, controlled: Plan: Patient on insulin pump at home this will be discontinued glycemic management pharmacy will convert to basal bolus insulin therapy Admission and Anticipated Discharge Date Admission Date: March 26, 2021 Subjective pt has no immediate issues at this time, leg wound has worsened and become more malodorous, upper thigh wound inspected and is C/D/I Review of Systems Review of Systems: Mild distress and fatigue no headache, no visual changes no speech or swallowing issues no chest pain, pressure or palpitations no shortness of breath, cough or wheezes no abdominal pain, nausea or vomiting, diarrhea or constipation no dysuria, hematuria or frequency gnagrene to right heel no back pain, CVA tenderness or radicular pain Pain symptoms as sharp with degradation of tissue no focal signs of weakness peripheral neuropathy no complaints of anxiety or depression.. Physical Exam Physical Exam: The patient appeared well nourished and normally developed. Vital signs as documented. Head exam is normocephalic atraumatic Neck is without JVD, thyromegaly, or carotid bruits. Lungs are clear to auscultation, no focal loss of breath sounds Cardiac exam, Rhythm is regular systolic ejection murmur Abdominal exam reveals normal bowel sounds, soft non tender, no masses Distal extremity with wounds from surgery however there is a large necrotic heel ulceration which appears to be worsened than previous Neurologic exam is alert and oriented Psychologically is without concerns for anxiety or depression Results & Data Results & Data ([facility]) Vital Signs (Past 12 Hours) Vital Signs Temp Pulse Pulse Resp BP Pulse Ox 03/29/21 15:02 97.5 F L 62 18 128/80 97 03/29/21 06:23 98.2 F 69 16 119/70 96 PG Care Time/CCT Total # of Minutes Spent Total Time Spent with Patient: Total time spent is greater than 50% in coordination of care (as documented) at patient's floor/unit and/or counseling patient: Coding Level of Care Code 05201 Subseq Hosp Care Lvl 3 Diagnoses 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 transplanted heart: [place] heart Associated angina: without angina Hypothyroidism E03.9 Hypothyroidism type: unspecified DVT prophylaxis Z29.9 Diabetes type 1, controlled E10.9 (1) CAD (coronary artery disease) Coronary Disease-Associated Artery/Lesion type: [place] artery [place] vs. transplanted heart: [place] heart Associated angina: without angina Qualified Code(s): I25.10 - Atherosclerotic heart disease of [place] coronary artery without angina pectoris (2) Hypothyroidism Hypothyroidism type: unspecified Qualified Code(s): E03.9 - Hypothyroidism, unspecified
--- NOTE | 2021-03-29 17:16 | Orthopedic Consultation ---
Date of Consultation March 29, 2021 Assessment & Plan (1) Chronic osteomyelitis of right foot: Agree with Dr. Soto and Dr. Bustos that the patient would benefit from a below the knee amputation, it is not needed emergently as he is not septic or unstable. Concerned about the wound in the lower leg as it falls in the area of the planned BKA, making closure difficult and if the wound were to get infected the BKA may turn into an AKA. Would wait until Dr. Soto returns from his vacation to evaluated and determine timing of BKA. I will sign off at this point. Continue suppressive antibiotics per the internal medicine and infectious diseases teams. Please recall the office if with any questions or concerns. Present on Admission?: Yes (2) Peripheral arterial disease: History of Present Illness Reason for Consultation: R BKA Requesting Physician: Christi Bergeron MD Attending Physician: Ron Mares MD History of Present Illness Mr. Chowdhury is a pleasant 65-year-old male, with known right heel osteomyelitis. He is a patient of Dr. Soto's and is planned to evaluate him again next week as an outpatient to determine if his wounds are healed enough and that the infection from his bypass graft is controlled to proceed with a right BKA. He recently had portion of the graft removed by Dr. Eason and has a wound VAC in place in the medial aspect of the right lower leg. I was consulted to see if the BKA could be moved up while he is still in the hospital. Allergies Allergy/AdvReac Type Severity Reaction Status Date / Time No Known Allergies Allergy Unknown Verified 03/22/21 08:16 Home Medications Medication Instructions Recorded Confirmed Type pantoprazole 40 mg tablet,delayed 40 mg PO QAM #30 tab 04/27/20 03/25/21 Rx release (Protonix) atorvastatin 80 mg tablet (Lipitor) 80 mg PO HS #90 tab 11/25/20 03/25/21 Rx gentamicin 0.1 % topical ointment 1 applic TOPICAL ONCE 42 Days #30 g 11/25/20 03/22/21 Rx insulin aspart U-100 100 unit/mL 60 unit SQ UD #20 ml 01/14/21 03/25/21 Rx subcutaneous solution (Novolog U-100 Insulin aspart) acetaminophen 500 mg tablet 1,000 mg PO Q6 PRN #100 tab 01/28/21 03/25/21 Rx (Tylenol Extra Strength) aspirin 81 mg tablet,delayed 81 mg PO QAM #30 tab 01/28/21 03/25/21 Rx release calcitriol 0.25 mcg capsule 0.25 mcg PO QAM #30 cap 01/28/21 03/25/21 Rx (Rocaltrol) chlorthalidone 25 mg tablet 25 mg PO QAM #30 tab 01/28/21 03/25/21 Rx clopidogrel 75 mg tablet (Plavix) 75 mg PO QAM #30 tab 01/28/21 03/25/21 Rx levothyroxine 175 mcg tablet 175 mcg PO QAM #30 tab 01/28/21 03/25/21 Rx oxycodone 5 mg tablet 5 mg PO TID PRN #30 tab 01/28/21 03/25/21 Rx metoprolol tartrate 25 mg tablet 12.5 mg PO BID #90 tab 02/09/21 03/25/21 Rx potassium chloride 20 mEq 20 meq PO BID #60 tab 02/22/21 03/25/21 Rx tablet,extended release collagenase clostridium histo. 250 1 applic TOPICAL DAILY 30 Days #30 03/16/21 03/25/21 Rx unit/gram topical ointment (Santyl) g ciprofloxacin HCl 500 mg tablet 500 mg PO BID #30 tab 03/24/21 03/25/21 Rx (Cipro) daptomycin 500 mg intravenous 500 mg IV DAILY #14 ea 03/24/21 03/25/21 Rx solution Patient History Medical History Aortic stenosis s/p porcine valve replacement (2015) with CABG x 1 CAD (coronary artery disease) s/p CABG x 1 (2015) Chronic renal disease, stage 3, moderately decreased glomerular filtration rate (GFR) between 30-59 mL/min/1.[address] Lerner Diabetes mellitus type 1 + Insulin pump Diabetic nephropathy associated with type 1 diabetes mellitus Dyslipidemia GERD (gastroesophageal reflux disease) Hypertension Hypothyroidism Insulin pump in place Osteoarthritis Osteoporosis PAD (peripheral artery disease) Proliferative diabetic retinopathy associated with type 1 diabetes mellitus PVD (peripheral vascular disease) s/p B/L iliac artery stents (2014), R common/external iliac (2017), R common femoral endarterectomy (11/2018) with bovine patch. Left femoral to PT composite bypass graft (06/2020) Surgical History H/O cataract extraction R/L H/O endarterectomy R common femoral (11/2018) H/O vascular surgery Right Femoral to Posterior tibial Prosthetic Bypass Graft(Right) History of ankle surgery LEFT ANKLE +HARDWARE REMOVED History of aortic valve replacement 2016 [place] [place] History of arterial bypass of lower extremity Left femoral to PT composite bypass graft (06/2020) History of cardiac cath x2, most recent 2016 > no stents (subsequent CABG with AVR in 2016) History of carpal tunnel release R/L History of colonoscopy History of coronary artery bypass graft CABG x1 + AVR (2016) History of esophagogastroduodenoscopy (EGD) History of myringotomy History of open reduction and internal fixation (ORIF) procedure LLE () History of skin graft Split Thickness Skin Graft of Left Lateral Ankle (11/18/20): LMA#5, atraumatic x1 at [facility] History of tonsillectomy History of tooth extraction History of umbilical hernia repair Hx of surgical procedure Left Leg Wound Debridement and Irrigation S/P femoropopliteal bypass surgery Right fem-pop bypass graft (01/19/21): Grade 2 view, MAC 3.0, ETT 8.0 at [facility] S/P insertion of iliac artery stent B/L iliac stent placement (2014) 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 Family History Brother Family history of diabetes mellitus Sister Family history of diabetes mellitus Mother Family history of diabetes mellitus Grandmother (Maternal) Family history of diabetes mellitus Uncle Family hx of colon cancer Colorectal cancer Father Family history of esophageal cancer Sister Family history of diabetes mellitus Other No family history of adverse response to anesthesia Denies family history of Ovarian cancer Prostate cancer Myocardial infarction Breast cancer Social History Smoking Status: Former smoker Tobacco Type: Cigarettes and Smokeless Tobacco (Dip or Chew) Cigarettes Per Day: Quit 15 years ago; Second Hand Exposure: No; Hx Alcohol Use: Yes Alcohol type: beer Alcohol Intake Frequency: Monthly or Less Hx Substance Use: No Preferred Language: Ecuadorean Communication Ability: Effective Visual Impairment: No Limitations Hearing Ability: Normal Convention Services Manager Required: No Beliefs That Will Affect Care: None marital status: Current Living Situation: Other Current Living Situation Comment: Roommate How many Children do You have: 2 Other Information That Helps Us Care for You: No Feels Safe at Home: Yes Safety Concerns: Feels Safe At This Time Childhood Exposure to Second-Hand Smoke: Yes Diet Comment: Carb Counts. (8981-4397, roughly) caffeine: Yes (coffee, rarely ) during the past year weight has: remained stable Dental Care, Regularly: No Physical Activity Frequency: 1-2 Times per Week Seatbelt Use: always Sunscreen Use: No Gender Identity: Male Assistive Devices: Glasses Review of Systems Review of Systems: Noted in HPI Physical Exam Physical Exam: RLE: The right heel is bandaged with Kerlix. No sensation to light touch. Unable to move toes, per patient he has been unable for a long time. There is a wound vac over the medial aspect below the knee in the area of the planned incision for BKA. Calf is soft. No evidence of infection around the knee. Results & Data ([facility]) Vital Signs (Past 12 Hours) Vital Signs Temp Pulse Pulse Resp BP Pulse Ox 03/29/21 15:02 36.4 C L 62 18 128/80 97 03/29/21 06:23 36.8 C 69 16 119/70 96 Laboratory Results 03/29/21 03/29/21 03/29/21 Range/Units 12:07 08:07 05:50 WBC (4.8-10.8) K/uL RBC (4.7-6.1) M/uL Hgb (14.0-18.0) g/dL Hct (42-52) % MCV (80-100) fL MCH (25-34) pg MCHC (32-36) g/dL RDW Std Deviation (36.4-46.3) fL RDW Coeff of Chan (11.5-14.5) % Plt Count (130-400) K/uL MPV (7.4-10.4) fL Sodium 133 L (136-145) mmol/L Potassium 3.8 D (3.5-5.1) mmol/L Chloride 94 L (98-107) mmol/L Carbon Dioxide 36 H (21-32) mmol/L Anion Gap 3.0 (3-11) BUN 17 (7-18) mg/dl Creatinine 0.86 (0.6-1.4) mg/dl Est Cr Clr Drug Dosing 85.1 ml/min Est GFR ( Amer) 107.0 ml/min Est GFR (Non-Af Amer) 92.3 ml/min BUN/Creatinine Ratio 20.5 H (10-20) Glucose 125 H (70-99) mg/dl POC Glucose 285 H 129 H (70-99) mg/dl Calcium 9.5 (8.5-10.1) mg/dl 03/29/21 03/29/21 03/28/21 Range/Units 05:50 01:48 20:40 WBC 14.71 H (4.8-10.8) K/uL RBC 3.95 L (4.7-6.1) M/uL Hgb 9.9 L (14.0-18.0) g/dL Hct 31.3 L (42-52) % MCV 79.2 L (80-100) fL MCH 25.1 (25-34) pg MCHC 31.6 L (32-36) g/dL RDW Std Deviation 44.6 (36.4-46.3) fL RDW Coeff of Chan 15.3 H (11.5-14.5) % Plt Count 515 H (130-400) K/uL MPV 9.1 (7.4-10.4) fL Sodium (136-145) mmol/L Potassium (3.5-5.1) mmol/L Chloride (98-107) mmol/L Carbon Dioxide (21-32) mmol/L Anion Gap (3-11) BUN (7-18) mg/dl Creatinine (0.6-1.4) mg/dl Est Cr Clr Drug Dosing ml/min Est GFR ( Amer) ml/min Est GFR (Non-Af Amer) ml/min BUN/Creatinine Ratio (10-20) Glucose (70-99) mg/dl POC Glucose 122 H 269 H (70-99) mg/dl Calcium (8.5-10.1) mg/dl 03/28/21 Range/Units 17:19 WBC (4.8-10.8) K/uL RBC (4.7-6.1) M/uL Hgb (14.0-18.0) g/dL Hct (42-52) % MCV (80-100) fL MCH (25-34) pg MCHC (32-36) g/dL RDW Std Deviation (36.4-46.3) fL RDW Coeff of Chan (11.5-14.5) % Plt Count (130-400) K/uL MPV (7.4-10.4) fL Sodium (136-145) mmol/L Potassium (3.5-5.1) mmol/L Chloride (98-107) mmol/L Carbon Dioxide (21-32) mmol/L Anion Gap (3-11) BUN (7-18) mg/dl Creatinine (0.6-1.4) mg/dl Est Cr Clr Drug Dosing ml/min Est GFR ( Amer) ml/min Est GFR (Non-Af Amer) ml/min BUN/Creatinine Ratio (10-20) Glucose (70-99) mg/dl POC Glucose 204 H (70-99) mg/dl Calcium (8.5-10.1) mg/dl
[2021-03-29] MEDS: COLLAGENASE OINT 30 GM TUBE TOP SCH (19:13)
[2021-03-29] MEDS: GENTAMICIN SULFATE 0.1% CR 15 GM TUBE EXT SCH (19:13)
[2021-03-29] MEDS: INSULIN GLARGINE SOLOSTAR 100 UNITS/ML 3 ML PEN SC SCH (21:15)
[2021-03-29] MEDS: ATORVASTATIN 40 MG TAB PO SCH (21:47)
[2021-03-29] MEDS: ENOXAPARIN INJ 40 MG/0.4 ML SYR SQ SCH (23:59)
[2021-03-30] MEDS: LEVOTHYROXINE SODIUM 175 MCG TABLET PO SCH (05:59)
[2021-03-30] MEDS: CEFEPIME 2,000 MG in SYRINGE 0 ML IV SCH ×3 (06:00→23:02)
[2021-03-30 07:27] LABS: BUN Creatinine Ratio 22.3 (10-20); Calcium 9.6 mg/dl (8.5-10.1); Creatinine Clr Calc Pharmacy 86.1 ml/min; Est GFR (African American) 107.5 ml/min; Est GFR (Non-African American) 92.7 ml/min; Potassium 3.8 mmol/L (3.5-5.1)
[2021-03-30] MEDS: SODIUM CHLORIDE 0.9% 1000ML 1,000 ML IV SCH ×2 (08:41→20:54)
[2021-03-30] MEDS: ASPIRIN 81 MG ECTAB PO SCH (08:41)
[2021-03-30] MEDS: PANTOprazole 40 MG TAB PO SCH (08:42)
[2021-03-30] MEDS: CALCITRIOL 0.25 MCG CAPSULE PO SCH (08:42)
[2021-03-30] MEDS: CHLORTHALIDONE 25 MG TAB PO SCH (08:43)
[2021-03-30] MEDS: METOPROLOL TARTRATE 25 MG TAB PO SCH ×2 (08:44→20:52)
[2021-03-30] MEDS: INSULIN ASPART 100 UNITS/ML 3 ML PEN SC SCH ×5 (08:48→23:53)
[2021-03-30] MEDS: DAPTOmycin 500 MG in SYRINGE 0 ML IV SCH (11:46)
--- NOTE | 2021-03-30 14:33 | Pharmacy Report ---
Pharmacy Glycemic Short Note 2 - Date of Service March 30, 2021 - Glycemic Short BSG Results (Last 24 hours): 03/29/21 03/29/21 03/30/21 17:25 21:00 06:32 Glucose 230 H POC Glucose 180 H 283 H 03/30/21 03/30/21 08:10 12:19 Glucose POC Glucose 263 H 253 H OUTPATIENT ANTIDIABETIC REGIMEN: * A1c 7.3% 01/21/21 * Novolog insulin pump * basal rate 1.3 units/hr * CF 40 mg/dl/unit * Carb ratio: 1 unit per 8 grams CHO ASSESSMENT: 03/30/21 * Received 89 units of insulin yesterday (35 units of basal and 54 units of prandial/correctional bolus) * BSGs continue to be elevated, ranging 122-285 mg/dL yesterday * Fasting BSG of 263 mg/dL this morning * Will utilize overnight checks this evening in light of elevated BSGs today * Unclear reason for significantly elevated insulin needs (perhaps infection?) 03/29/21 * Patient received total of 126 units of insulin yesterday, of which only 35 units were basal insulin * Fasting BSG within range at 125 mg/dL - will continue same Lantus for now * Tightened CR this AM - will continue same. Unclear if the infection is related to increase need in insulin during hospital stay. Ideally would like more of a 50/50 split with basal/bolus insulin. Could consider adjustment of basal tomorrow if insulin needs remain increased 03/28/21 * Pt has received 78 units of insulin over the past 24hrs * 35 units of basal with Lantus * 43 units of bolus with NovoLog * BSGs 147-301 mg/dl * Blood sugars marck throughout the day, will tighten CF/CR * No change in basal at this time, want to make one change at a time with sensitive type 1 diabetic * BKA is not needed emergently as he is not septic or unstable, pt prefers to wait for Dr Soto to return to do the surgery, Dr Eason to see patient Monday regarding surgery as patient has previous vascular wound. 03/27/21 * 65 year old male, discharged home on March 24 after having removal of arterial graft from his leg in preparation for BKA later this month on IV Dapto + PO Cipro. Wound worsening, readmitted last night, IV Cefepime + Dapto, ortho eval, may need surgery moved up. * Patient known to glycemic service, managed on insulin pump as outpatient, will use basal bolus insulin as done previously this month * ADA & AACE recommend a goal blood sugar range 140-180 mg/dl for the majority of critically ill & non-critically ill patients. However, more stringent targets may be selected in individual cases. Will utilize more stringent goal of 110-140mg/dl based on patient age & comorbidities. Additionally, tighter glycemic control is warranted to facilitate wound/infection healing. PLAN FOR INPATIENT GLYCEMIC CONTROL: * Basal insulin * Lantus 35 units SQ HS * Bolus insulin -tighten CF AND CR * NovoLog per scale ACHS or Q6hrs while NPO * Goal Range: Low 110 mg/dL - High 140 mg/dL * Correction Factor: 20 mg/dL/unit at breakfast, lunch, and dinner, 30 mg/dL/unit at HS Breakfast, lunch, and dinner: * Nutritional / Prandial insulin per carb ratio of 1 unit per 3.5 grams CHO consumed HS: * Nutritional / Prandial insulin per carb ratio of 1 unit per 6 grams CHO consumed PLAN FOR DISCHARGE: * Likely OK to resume home insulin pump, A1c 7.3%
--- NOTE | 2021-03-30 17:37 | Hospitalist Progress Note ---
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 Orthopedics on board Patient aware that he will require a right below the knee amputation once wound VAC closure is complete due to failed right arterial graft which was removed 03/22/2021. Dr. Soto is the patient's orthopedic surgeon. He is out of town until next week. Patient will follow him as an outpatient and then schedule BKA Continue IV antibiotics Awaiting placement with IV antibiotics at this time (2) COPD (chronic obstructive pulmonary disease): Plan: No bronchospasm on exam Patient currently does not require any bronchodilation Continue to follow clinically (3) Aortic stenosis: Plan: Porcine valve replacement history No complications at this time Monitor clinically (4) CAD (coronary artery disease): Plan: Continue metoprolol tartrate Continue aspirin Clopidogrel held secondary to possible need for urgent surgery Continue Lovenox. No indication for heparin drip (5) Hypothyroidism: Plan: Continue levothyroxine (6) Diabetes type 1, controlled: Plan: Hemoglobin A1c in January was 7.3 Continue Lantus 35 units at bedtime Continue sliding scale insulin (7) Hypertension: Plan: Hemodynamically stable Monitor per protocol Continue Lopressor, chlorthalidone Continue pain management (8) VRE infection (vancomycin resistant enterococcus), with multi-drug resistance: Plan: Enterococcus resistant to vancomycin and gentamicin isolated from right foot culture in January 2021 Continue isolation protocol Can discontinue isolation protocol after amputation as source of infection will be eradicated (9) DVT prophylaxis: Plan: Continue enoxaparin Admission and Anticipated Discharge Date Admission Date: March 26, 2021 Subjective Patient seen and examined at bedside. In bedside chair. Left foot elevated on stool. Patient states the pain is generally controlled. He has no fever, chills, sweats, rigors. No nausea or vomiting. No diarrhea. Tolerating IV antibiotics well. No other acute complaints. Review of Systems Review of Systems: All systems reviewed & are unremarkable except as noted in Subjective Physical Exam Physical Exam: GENERAL : No acute distress. Pleasant. Bedside chair EYES: No icterus, gaze conjugate NOSE: No evidence of epistaxis MOUTH: No lesions or candidiasis NECK: Supple LUNGS: CTA B/L, no wheezes, rales or rhonchi HEART: Regular, rate controlled. No murmurs gallops or rubs. ABDOMEN: Soft, NT, ND, BS Present EXTREMITIES: No LE edema, pedal pulses intact. Incision in the right inner t high healing well. Demetrice in place. Wound VAC in place to right lower extremity. 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 transplanted heart: [place] heart Associated angina: without angina Hypothyroidism E03.9 Hypothyroidism type: unspecified Diabetes type 1, controlled E10.9 Hypertension I10 Hypertension type: unspecified VRE infection (vancomycin resistant enterococcus), with multi-drug resistance A49.1; Z16.24 DVT prophylaxis Z29.9 Time Spent (min) 20 (1) CAD (coronary artery disease) Coronary Disease-Associated Artery/Lesion type: [place] artery [place] vs. transplanted heart: [place] heart Associated angina: without angina Qualified Code(s): I25.10 - Atherosclerotic heart disease of [place] coronary artery without angina pectoris (2) Hypothyroidism Hypothyroidism type: unspecified Qualified Code(s): E03.9 - Hypothyroidism, unspecified (3) Hypertension Hypertension type: unspecified Qualified Code(s): I10 - Essential (primary) hypertension
[2021-03-30] MEDS: ACETAMINOPHEN 325 MG TAB PO PRN (20:52)
[2021-03-30] MEDS: ATORVASTATIN 40 MG TAB PO SCH (20:54)
[2021-03-30] MEDS: INSULIN GLARGINE SOLOSTAR 100 UNITS/ML 3 ML PEN SC SCH (20:57)
[2021-03-30] MEDS ORDERED: INSULIN HUMAN NPH SC SCH (21:00)
[2021-03-30] MEDS: ENOXAPARIN INJ 40 MG/0.4 ML SYR SQ SCH (23:01)
[2021-03-31] MEDS: INSULIN ASPART 100 UNITS/ML 3 ML PEN SC SCH ×5 (03:55→21:22)
[2021-03-31] MEDS: CEFEPIME 2,000 MG in SYRINGE 0 ML IV SCH ×3 (06:26→22:06)
[2021-03-31] MEDS: LEVOTHYROXINE SODIUM 175 MCG TABLET PO SCH (06:26)
[2021-03-31 08:35] LABS: BUN Creatinine Ratio 27.9 (10-20); Calcium 9.2 mg/dl (8.5-10.1); Creatinine Clr Calc Pharmacy 98.9 ml/min; Est GFR (African American) 113.8 ml/min; Est GFR (Non-African American) 98.2 ml/min; Potassium 3.9 mmol/L (3.5-5.1)
[2021-03-31] MEDS: INSULIN GLARGINE SOLOSTAR 100 UNITS/ML 3 ML PEN SC SCH ×2 (09:01→21:21)
[2021-03-31] MEDS: SODIUM CHLORIDE 0.9% 1000ML 1,000 ML IV SCH ×2 (09:23→22:05)
[2021-03-31] MEDS: CHLORTHALIDONE 25 MG TAB PO SCH (09:24)
[2021-03-31] MEDS: ASPIRIN 81 MG ECTAB PO SCH (09:24)
[2021-03-31] MEDS: CALCITRIOL 0.25 MCG CAPSULE PO SCH (09:24)
[2021-03-31] MEDS: METOPROLOL TARTRATE 25 MG TAB PO SCH ×2 (09:25→21:18)
[2021-03-31] MEDS: PANTOprazole 40 MG TAB PO SCH (09:26)
[2021-03-31 09:51] LABS: Hematocrit (blood only) 30.2 % (42-52); Hemoglobin 9.4 g/dL (14.0-18.0); Mean Corpuscular Hemoglobin 24.7 pg (25-34); Mean Corpuscular Hgb Conc 31.1 g/dL (32-36); Mean Corpuscular Volume 79.5 fL (80-100); Mean Platelet Volume 9.3 fL (7.4-10.4); Platelet Count 519 K/uL (130-400); RDW Coefficient of Variation 15.5 % (11.5-14.5); RDW Standard Deviation 45.5 fL (36.4-46.3)
--- NOTE | 2021-03-31 10:02 | Hospitalist Progress Note ---
Date of Service March 31, 2021 Assessment & Plan (1) Hyponatremia: Plan: Sodium level was 129 yesterday. Patient was started on normal saline solution at 80 mL/h. Sodium level now 135. No change in mental status. Continue to follow serial labs. (2) Osteomyelitis due to type 1 diabetes mellitus: Plan: Currently requiring IV antibiotics including daptomycin and cefepime. Orthopedics on board Patient aware that he will require a right below the knee amputation once wound VAC closure is complete due to failed right arterial graft which was removed 03/22/2021. Dr. Soto is the patient's orthopedic surgeon. He is out of town until next week. Patient will follow him as an outpatient and then schedule BKA Continue IV antibiotics Awaiting placement with IV antibiotics at this time. Hopeful that patient will be accepted at [facility] in [place]. (3) COPD (chronic obstructive pulmonary disease): Plan: No bronchospasm on exam Patient currently does not require any bronchodilation Continue to follow clinically (4) Aortic stenosis: Plan: Porcine valve replacement history No complications at this time Monitor clinically (5) CAD (coronary artery disease): Plan: Continue metoprolol tartrate Continue aspirin Clopidogrel held secondary to possible need for urgent surgery Continue Lovenox. No indication for heparin drip (6) Hypothyroidism: Plan: Continue levothyroxine (7) Diabetes type 1, controlled: Plan: Hemoglobin A1c in January was 7.3 Continue Lantus 35 units at bedtime Continue sliding scale insulin (8) Hypertension: Plan: Hemodynamically stable Monitor per protocol Continue Lopressor, chlorthalidone Continue pain management (9) VRE infection (vancomycin resistant enterococcus), with multi-drug resistance: Plan: Enterococcus resistant to vancomycin and gentamicin isolated from right foot culture in January 2021 Continue isolation protocol Can discontinue isolation protocol after amputation as source of infection will be eradicated (10) DVT prophylaxis: Plan: Continue enoxaparin Out of bed to chair as tolerated. Admission and Anticipated Discharge Date Admission Date: March 26, 2021 Subjective Patient seen and examined at bedside. No complaints overnight. Continues to be afebrile. Pain is well controlled to his right leg. Awaiting disposition regarding placement. Review of Systems Review of Systems: All systems reviewed & are unremarkable except as noted in Subjective Physical Exam Constitutional: No acute distress. Pleasant Eyes: PERRL, conjunctivae normal, anicteric sclerae Neck: No appreciation of stridor or carotid bruits Respiratory: normal respiratory effort; no respiratory distress Auscultation: lungs clear to auscultation bilaterally and + diminished lung sounds Cardiovascular: Rate/Rhythm: regular rate and regular rhythm Musculoskeletal: Wound VAC in place to right lower extremity on the medial surface. No seepage or drainage from incisional site in the right upper leg. Demetrice intact. No erythema appreciated. Neurologic: A&OX3. Results & Data Results & Data ([facility]) Vital Signs (Past 12 Hours) Vital Signs Temp Pulse Pulse Resp BP Pulse Ox 03/31/21 08:00 36.6 C 62 20 134/75 96 03/30/21 23:49 36.8 C 65 14 116/74 97 Laboratory Results 03/31/21 07:34 03/31/21 07:34 PG Care Time/CCT Total # of Minutes Spent Total Time Spent with Patient: Total time spent is greater than 50% in coordination of care (as documented) at patient's floor/unit and/or counseling patient: 20 minutes Coding Level of Care Code 90914 Subseq Hosp Care Lvl 2 Diagnoses Osteomyelitis due to type 1 diabetes mellitus E10.69; M86.9 COPD (chronic obstructive pulmonary disease) J44.9 Aortic stenosis I35.0 CAD (coronary artery disease) I25.10 Coronary Disease-Associated Artery/Lesion type: [place] artery [place] vs. transplanted heart: [place] heart Associated angina: without angina Hypothyroidism E03.9 Hypothyroidism type: unspecified Diabetes type 1, controlled E10.9 Hypertension I10 Hypertension type: unspecified VRE infection (vancomycin resistant enterococcus), with multi-drug resistance A49.1; Z16.24 DVT prophylaxis Z29.9 Hyponatremia E87.1 Time Spent (min) 20 (1) CAD (coronary artery disease) Coronary Disease-Associated Artery/Lesion type: [place] artery [place] vs. transplanted heart: [place] heart Associated angina: without angina Qualified Code(s): I25.10 - Atherosclerotic heart disease of [place] coronary artery without angina pectoris (2) Hypothyroidism Hypothyroidism type: unspecified Qualified Code(s): E03.9 - Hypothyroidism, unspecified (3) Hypertension Hypertension type: unspecified Qualified Code(s): I10 - Essential (primary) hypertension
--- NOTE | 2021-03-31 11:01 | Pharmacy Report ---
Pharmacy Glycemic Short Note 2 - Date of Service March 31, 2021 - Glycemic Short BSG Results (Last 24 hours): 03/30/21 03/30/21 03/30/21 12:19 16:56 20:34 Glucose POC Glucose 253 H 154 H 256 H 03/30/21 03/31/21 03/31/21 23:48 03:52 07:34 Glucose 201 H POC Glucose 282 H 213 H 03/31/21 08:24 Glucose POC Glucose 232 H OUTPATIENT ANTIDIABETIC REGIMEN: * A1c 7.3% 01/21/21 * Novolog insulin pump * basal rate 1.3 units/hr * CF 40 mg/dl/unit * Carb ratio: 1 unit per 8 grams CHO ASSESSMENT: 03/31/21: * Pt received total 112 units of insulin yesterday: 35 units basal and 77 units bolus * Fasting BSG still high today at 232 mg/dl. Therefore, added AM basal insulin coverage as well today. * Except for the dinner time BSG, post-prandial BSGs yesterday were all elevated. Tightened CF at HS. * Expect BSGs to trend down with additional basal dose given this AM. 03/30/21 * Received 89 units of insulin yesterday (35 units of basal and 54 units of prandial/correctional bolus) * BSGs continue to be elevated, ranging 122-285 mg/dL yesterday * Fasting BSG of 263 mg/dL this morning * Will utilize overnight checks this evening in light of elevated BSGs today * Unclear reason for significantly elevated insulin needs (perhaps infection?) 03/29/21 * Patient received total of 126 units of insulin yesterday, of which only 35 units were basal insulin * Fasting BSG within range at 125 mg/dL - will continue same Lantus for now * Tightened CR this AM - will continue same. Unclear if the infection is related to increase need in insulin during hospital stay. Ideally would like more of a 50/50 split with basal/bolus insulin. Could consider adjustment of basal tomorrow if insulin needs remain increased 03/28/21 * Pt has received 78 units of insulin over the past 24hrs * 35 units of basal with Lantus * 43 units of bolus with NovoLog * BSGs 147-301 mg/dl * Blood sugars marck throughout the day, will tighten CF/CR * No change in basal at this time, want to make one change at a time with sen sitive type 1 diabetic * BKA is not needed emergently as he is not septic or unstable, pt prefers to wait for Dr Soto to return to do the surgery, Dr Eason to see patient Monday regarding surgery as patient has previous vascular wound. 03/27/21 * 65 year old male, discharged home on March 24 after having removal of arterial graft from his leg in preparation for BKA later this month on IV Dapto + PO Cipro. Wound worsening, readmitted last night, IV Cefepime + Dapto, ortho eval, may need surgery moved up. * Patient known to glycemic service, managed on insulin pump as outpatient, will use basal bolus insulin as done previously this month * ADA & AACE recommend a goal blood sugar range 140-180 mg/dl for the majority of critically ill & non-critically ill patients. However, more stringent t argets may be selected in individual cases. Will utilize more stringent goal of 110-140mg/dl based on patient age & comorbidities. Additionally, tighter glycemic control is warranted to facilitate wound/infection healing. PLAN FOR INPATIENT GLYCEMIC CONTROL: * Basal insulin: increased * Lantus 15 units SQ AM * Lantus 35 units SQ HS * Bolus insulin -tighten CF AND CR * NovoLog per scale ACHS or Q6hrs while NPO * Goal Range: Low 110 mg/dL - High 140 mg/dL * Correction Factor: 20 mg/dL/unit at breakfast, lunch, and dinner, 20 mg/dL/unit at HS Breakfast, lunch, and dinner: * Nutritional / Prandial insulin per carb ratio of 1 unit per 3.5 grams CHO consumed HS: * Nutritional / Prandial insulin per carb ratio of 1 unit per 5 grams CHO consumed PLAN FOR DISCHARGE: * Likely OK to resume home insulin pump, A1c 7.3%
--- NOTE | 2021-03-31 13:18 | Surgery Progress Note ---
Date of Service March 31, 2021 Assessment & Plan (1) Peripheral arterial disease: Plan: Pt R calf wound healing well since removal of BPG and debridement. While culture of distal end of graft was positive, pt has been on abx and wound demonstrates no sign of infection presently. Per Dr Eason, orthopedics can proceed with RLE BKA even before R calf wound completely healed. Will continue with wound vac for calf wound until orthopedics ready to perform RLE BKA. Will see in office in 2 weeks to check calf wound if BKA not peformed prior to then. Please call if needed. Admission and Anticipated Discharge Date Admission Date: March 26, 2021 Subjective 65 yo m s/p removal of RLE fem-distal BPG and debridement of calf wound, seenin f/u today. Pt denies any new complaints. Awaiting NH placement and then to be eval by Dr Soto for RLE BKA. Review of Systems Review of Systems: Negative except HPI Physical Exam Constitutional: WD/WN, vitals as above Skin: + incision (CDI R thigh with sharri.) R calf wound with excellent granulation, no odor or sign of infection in calf wound. No necrosis or erythema. Results & Data ([facility]) Vital Signs (Past 12 Hours) Vital Signs Temp Pulse Resp BP Pulse Ox 03/31/21 08:00 36.6 C 62 20 134/75 96
[2021-03-31] MEDS: DAPTOmycin 500 MG in SYRINGE 0 ML IV SCH (14:11)
[2021-03-31] MEDS: ACETAMINOPHEN 325 MG TAB PO PRN (19:42)
[2021-03-31] MEDS: ATORVASTATIN 40 MG TAB PO SCH (21:18)
[2021-03-31] MEDS: ENOXAPARIN INJ 40 MG/0.4 ML SYR SQ SCH (22:07)
[2021-04-01] MEDS: INSULIN ASPART 100 UNITS/ML 3 ML PEN SC SCH ×6 (00:10→21:00)
[2021-04-01] MEDS: MELATONIN 3 MG TAB PO PRN (00:17)
[2021-04-01] MEDS: CEFEPIME 2,000 MG in SYRINGE 0 ML IV SCH ×3 (06:06→23:14)
[2021-04-01] MEDS: LEVOTHYROXINE SODIUM 175 MCG TABLET PO SCH (06:07)
[2021-04-01 07:13] LABS: BUN Creatinine Ratio 32.9 (10-20); Calcium 9.1 mg/dl (8.5-10.1); Creatinine Clr Calc Pharmacy 93.8 ml/min; Est GFR (African American) 111.3 ml/min; Est GFR (Non-African American) 96.1 ml/min; Potassium 3.1 mmol/L (3.5-5.1)
[2021-04-01] MEDS: CALCITRIOL 0.25 MCG CAPSULE PO SCH (09:58)
[2021-04-01] MEDS: CHLORTHALIDONE 25 MG TAB PO SCH (09:58)
[2021-04-01] MEDS: METOPROLOL TARTRATE 25 MG TAB PO SCH ×2 (09:58→21:02)
[2021-04-01] MEDS: ASPIRIN 81 MG ECTAB PO SCH (09:58)
[2021-04-01] MEDS: PANTOprazole 40 MG TAB PO SCH (09:58)
[2021-04-01] MEDS: INSULIN GLARGINE SOLOSTAR 100 UNITS/ML 3 ML PEN SC SCH ×2 (10:00→21:04)
[2021-04-01] MEDS: SODIUM CHLORIDE 0.9% 1000ML 1,000 ML IV SCH (10:14)
[2021-04-01] MEDS: POTASSIUM CHLORIDE CRTAB 20 MEQ TABCR PO SCH ×3 (10:14→21:02)
[2021-04-01] MEDS: DAPTOmycin 500 MG in SYRINGE 0 ML IV SCH (12:46)
--- NOTE | 2021-04-01 15:00 | Pharmacy Report ---
Pharmacy Glycemic Short Note 2 - Date of Service April 01, 2021 - Glycemic Short BSG Results (Last 24 hours): 03/31/21 03/31/21 04/01/21 17:15 20:58 00:03 Glucose POC Glucose 99 132 H 142 H 04/01/21 04/01/21 04/01/21 03:59 05:35 08:27 Glucose 157 H POC Glucose 155 H 145 H 04/01/21 04/01/21 12:13 12:20 Glucose POC Glucose 302 H* 300 H OUTPATIENT ANTIDIABETIC REGIMEN: * A1c 7.3% 01/21/21 * Novolog insulin pump * basal rate 1.3 units/hr * CF 40 mg/dl/unit * Carb ratio: 1 unit per 8 grams CHO ASSESSMENT: 04/01: * Pt received total 118 units of insulin yesterday; 50 units basal and 68 units bolus. * Fasting BSG looked much better controlled this AM with BSG of 145 mg/dl. Continued with current BID basal insulin dose. * Post-prandial BSGs were well controlled yesterday but pre-lunch BSG today was up to 300 mg/dl. This was most likely since the AM Novolog dose was given late at 1000 today and we did see the full effect of that with pre-lunch BSG check. * BSGs should trend down with dinner and HS checks today. No changes made with current parameters. 03/31/21: * Pt received total 112 units of insulin yesterday: 35 units basal and 77 units bolus * Fasting BSG still high today at 232 mg/dl. Therefore, added AM basal insulin coverage as well today. * Except for the dinner time BSG, post-prandial BSGs yesterday were all elevated. Tightened CF at HS. * Expect BSGs to trend down with additional basal dose given this AM. 03/30/21 * Received 89 units of insulin yesterday (35 units of basal and 54 units of prandial/correctional bolus) * BSGs continue to be elevated, ranging 122-285 mg/dL yesterday * Fasting BSG of 263 mg/dL this morning * Will utilize overnight checks this evening in light of elevated BSGs today * Unclear reason for significantly elevated insulin needs (perhaps infection?) 03/29/21 * Patient received total of 126 units of insulin yesterday, of which only 35 units were basal insulin * Fasting BSG within range at 125 mg/dL - will continue same Lantus for now * Tightened CR this AM - will continue same. Unclear if the infection is related to increase need in insulin during hospital stay. Ideally would like more of a 50/50 split with basal/bolus insulin. Could consider adjustment of basal tomorrow if insulin needs remain increased 03/28/21 * Pt has received 78 units of insulin over the past 24hrs * 35 units of basal with Lantus * 43 units of bolus with NovoLog * BSGs 147-301 mg/dl * Blood sugars marck throughout the day, will tighten CF/CR * No change in basal at this time, want to make one change at a time with sensit raquel type 1 diabetic * BKA is not needed emergently as he is not septic or unstable, pt prefers to wait for Dr Soto to return to do the surgery, Dr Eason to see patient Monday regarding surgery as patient has previous vascular wound. 03/27/21 * 65 year old male, discharged home on March 24 after having removal of arterial graft from his leg in preparation for BKA later this month on IV Dapto + PO Cipro. Wound worsening, readmitted last night, IV Cefepime + Dapto, ortho eval, may need surgery moved up. * Patient known to glycemic service, managed on insulin pump as outpatient, will use basal bolus insulin as done previously this month * ADA & AACE recommend a goal blood sugar range 140-180 mg/dl for the majority of critically ill & non-critically ill patients. However, more stringent targ ets may be selected in individual cases. Will utilize more stringent goal of 110-140mg/dl based on patient age & comorbidities. Additionally, tighter glycemic control is warranted to facilitate wound/infection healing. PLAN FOR INPATIENT GLYCEMIC CONTROL: * Basal insulin: continued * Lantus 15 units SQ AM * Lantus 35 units SQ HS * Bolus insulin -continued CF AND CR * NovoLog per scale ACHS or Q6hrs while NPO * Goal Range: Low 110 mg/dL - High 140 mg/dL * Correction Factor: 20 mg/dL/unit at breakfast, lunch, and dinner, 20 mg/dL/unit at HS Breakfast, lunch, and dinner: * Nutritional / Prandial insulin per carb ratio of 1 unit per 3.5 grams CHO consumed HS: * Nutritional / Prandial insulin per carb ratio of 1 unit per 5 grams CHO consumed PLAN FOR DISCHARGE: * Likely OK to resume home insulin pump, A1c 7.3%
--- NOTE | 2021-04-01 19:48 | XRay Report ---
XR KUB/Abdomen 1 view CLINICAL HISTORY: ?fecal impaction? COMPARISON STUDY: September 02, 2019 FINDINGS: There are multiple nondilated gas and stool-filled loops of bowel are seen throughout the abdomen. Mo derate amount of stool is seen within left hemicolon. Large amount of stool is seen within pelvic reg ion. Surgical sharri are seen projecting to the left hemiabdomen. Vascular stent is seen within the anato mical region of the lower abdominal aorta and iliac arteries. Degenerative changes of the bilateral hip joints and lumbar spine are seen. IMPRESSION: 1. Moderate amount of stool within left hemiabdomen. Large amount of stool within pelvic region migh t represent fecal impaction. No bowel loop dilatation is seen. 2. Additional findings as detailed above. ACT 112: Negative or not required by law. The above report was generated using voice recognition software. It may contain grammatical, syntax o r spelling errors. Electronically signed by: Angelic Flores DO 04/01/2021 7:46 PM
--- NOTE | 2021-04-01 20:12 | Hospitalist Progress Note ---
Date of Service April 01, 2021 Assessment & Plan (1) Osteomyelitis due to type 1 diabetes mellitus: Plan: right foot. previous cultures -- VRE and pseudomonas. cont daptomycin for former, cefepime for latter. ultimately needs BKA of right leg as the osteomyelitis has not cleared with conservative Rx due to severe PAD and ultimate infection of fem-posterior tibial bypass and s/p removal of the bypass graft (03/23/21) I spoke with BENITO Jackson for Dr Soto from [facility]. Again the right ghotra/calf wound with wound vac in place needs to heal before BKA is done (ideally). The wound is about were the stump flap would take place. If not fully healed and free of infection the BKA could get infected. Thus, surgery is not imminent (not during this stay). Ms Graves to see patient tomorrow. Cont IV abx in meantime. ID consult to be requested. (2) COPD (chronic obstructive pulmonary disease): Plan: stable no flare (3) Aortic stenosis: Plan: History of aortic stenosis with porcine valve replacement (4) CAD (coronary artery disease): Plan: Cont atorvastatin, metoprolol, chlorthalidone resume plavix since BKA not planned this admission cont asa (5) Hypothyroidism: Plan: Cont Synthroid therapy TSH 0.069 this month may need a dose adjustment (6) DVT prophylaxis: Plan: Lovenox (7) Diabetes type 1, controlled: Plan: Patient on insulin pump at home pharmacy providing glycemic management cont basal-bolus SC regimen (8) Peripheral arterial disease: Plan: cont DAPT cont statin see above (9) Hypertension: Plan: cont chlorthalidone (10) Hypokalemia: Plan: replace repeat BMP am Plan: Due to stool complaints check KUB for impaction (which can cause overflow stooling). If no impaction then check c diff given copious abx usage. daughter updated at bedside Admission and Anticipated Discharge Date Admission Date: March 26, 2021 Subjective pt c/o copious liquid stools feels like "there is a bunch" that won't come out, maybe "like I'm backed up" otherwise eating well no fevers/chills asks about plan of care and if Dr Soto will perform BKA soon (after he returns to [place] - Dr Soto is away) daughter at bedside Review of Systems Constitutional: no fever, no chills, no fatigue and no anorexia Respiratory: no cough and no dyspnea Cardiovascular: no chest pain Gastrointestinal: no abdominal pain Musculoskeletal: no joint pain Physical Exam Physical Exam: gen - NAD, sitting in chair, pleasant mouth - MMM, no thrush neck - no JVD heart - RRR, s1 s2, no murmur lungs - CTA b/l abd - soft NT ND BS+ ext - right leg - wound vac in place medial aspect of mid-ghotra/calf; dressings intact right foot; mild odor present; <1+ edema right leg, none on left vascular - pulses right foot 1+ at best, cap refill 3 sec; pulses left foot 2+, cap refill < 2 sec psych - a/o x 3 Results & Data Results & Data ([facility]) Vital Signs (Past 12 Hours) Vital Signs Temp Pulse Pulse Pulse Resp BP Pulse Ox 04/01/21 16:51 36.4 C L 80 20 125/80 97 04/01/21 16:05 36.6 C 73 73 20 118/76 98 04/01/21 09:59 72 134/74 04/01/21 08:28 36.5 C 69 20 162/77 H 97 Laboratory Results Laboratory Results - last 24 hr 03/31/21 04/01/21 04/01/21 20:58 00:03 03:59 Sodium Potassium Chloride Carbon Dioxide Anion Gap BUN Creatinine Est Cr Clr Drug Dosing Est GFR ( Amer) Est GFR (Non-Af Amer) BUN/Creatinine Ratio Glucose POC Glucose 132 H 142 H 155 H Calcium 04/01/21 04/01/21 04/01/21 05:35 08:27 12:13 Sodium 134 L Potassium 3.1 L D Chloride 97 L Carbon Dioxide 34 H Anion Gap 3.0 BUN 26 H Creatinine 0.78 Est Cr Clr Drug Dosing 93.8 Est GFR ( Amer) 111.3 Est GFR (Non-Af Amer) 96.1 BUN/Creatinine Ratio 32.9 H Glucose 157 H POC Glucose 145 H 302 H* Calcium 9.1 04/01/21 04/01/21 12:20 16:45 Sodium Potassium Chloride Carbon Dioxide Anion Gap BUN Creatinine Est Cr Clr Drug Dosing Est GFR ( Amer) Est GFR (Non-Af Amer) BUN/Creatinine Ratio Glucose POC Glucose 300 H 148 H Calcium PG Care Time/CCT Total # of Minutes Spent Total Time Spent with Patient: Total time spent is greater than 50% in coordination of care (as documented) at patient's floor/unit and/or counseling patient: Coding Level of Care Code 89640 Subseq Hosp Care Lvl 3 Diagnoses Osteomyelitis due to type 1 diabetes mellitus E10.69; M86.9 COPD (chronic obstructive pulmonary disease) J44.9 Aortic stenosis I35.0 CAD (coronary artery disease) I25.10 Coronary Disease-Associated Artery/Lesion type: [place] artery [place] vs. transplanted heart: [place] heart Associated angina: without angina Hypothyroidism E03.9 Hypothyroidism type: unspecified DVT prophylaxis Z29.9 Diabetes type 1, controlled E10.9 Peripheral arterial disease I73.9 Hypertension I10 Hypertension type: unspecified Hypokalemia E87.6 (1) CAD (coronary artery disease) Coronary Disease-Associated Artery/Lesion type: [place] artery [place] vs. transplanted heart: [place] heart Associated angina: without angina Qualified Code(s): I25.10 - Atherosclerotic heart disease of [place] coronary artery without angina pectoris (2) Hypothyroidism Hypothyroidism type: unspecified Qualified Code(s): E03.9 - Hypothyroidism, unspecified (3) Hypertension Hypertension type: unspecified Qualified Code(s): I10 - Essential (primary) hypertension
[2021-04-01] MEDS: ATORVASTATIN 40 MG TAB PO SCH (21:02)
[2021-04-01] MEDS: ENOXAPARIN INJ 40 MG/0.4 ML SYR SQ SCH (23:15)
[2021-04-02] MEDS: CEFEPIME 2,000 MG in SYRINGE 0 ML IV SCH ×3 (06:41→23:20)
[2021-04-02] MEDS: LEVOTHYROXINE SODIUM 175 MCG TABLET PO SCH (06:41)
[2021-04-02 07:20] LABS: BUN Creatinine Ratio 36.1 (10-20); Calcium 9.2 mg/dl (8.5-10.1); Creatinine Clr Calc Pharmacy 107.6 ml/min; Est GFR (African American) 117.8 ml/min; Est GFR (Non-African American) 101.6 ml/min; Potassium 3.9 mmol/L (3.5-5.1)
[2021-04-02] MEDS: CHLORTHALIDONE 25 MG TAB PO SCH (08:59)
[2021-04-02] MEDS: ASPIRIN 81 MG ECTAB PO SCH (09:00)
[2021-04-02] MEDS: PANTOprazole 40 MG TAB PO SCH (09:00)
[2021-04-02] MEDS: METOPROLOL TARTRATE 25 MG TAB PO SCH ×2 (09:01→20:53)
[2021-04-02] MEDS: CALCITRIOL 0.25 MCG CAPSULE PO SCH (09:01)
[2021-04-02] MEDS: INSULIN GLARGINE SOLOSTAR 100 UNITS/ML 3 ML PEN SC SCH ×2 (09:02→20:57)
[2021-04-02] MEDS: INSULIN ASPART 100 UNITS/ML 3 ML PEN SC SCH ×4 (09:04→20:59)
--- NOTE | 2021-04-02 10:57 | Pharmacy Report ---
Pharmacy Glycemic Short Note 2 - Date of Service April 02, 2021 - Glycemic Short BSG Results (Last 24 hours): 04/01/21 04/01/21 04/01/21 12:13 12:20 16:45 Glucose POC Glucose 302 H* 300 H 148 H 04/01/21 04/02/21 04/02/21 20:43 00:17 00:36 Glucose POC Glucose 121 H 75 82 04/02/21 04/02/21 05:57 08:24 Glucose 118 H POC Glucose 125 H OUTPATIENT ANTIDIABETIC REGIMEN: * A1c 7.3% 01/21/21 * Novolog insulin pump * basal rate 1.3 units/hr * CF 40 mg/dl/unit * Carb ratio: 1 unit per 8 grams CHO ASSESSMENT: 04/02: * Patient received total of 105 units of insulin yesterday, of which 50 units were basal insulin * Fasting BSG 118 mg/dL - AM BSGs improving each day since increasing to 50 units, may use scale for HS time to back off on dosing. Last night overnight BSGs in 70s * Plan to continue with tighten CR with breakfast, likely loosen rest of the day 04/01: * Pt received total 118 units of insulin yesterday; 50 units basal and 68 units bolus. * Fasting BSG looked much better controlled this AM with BSG of 145 mg/dl. Continued with current BID basal insulin dose. * Post-prandial BSGs were well controlled yesterday but pre-lunch BSG today was up to 300 mg/dl. This was most likely since the AM Novolog dose was given late at 1000 today and we did see the full effect of that with pre-lunch BSG check. * BSGs should trend down with dinner and HS checks today. No changes made with current parameters. 03/31/21: * Pt received total 112 units of insulin yesterday: 35 units basal and 77 units bolus * Fasting BSG still high today at 232 mg/dl. Therefore, added AM basal insulin coverage as well today. * Except for the dinner time BSG, post-prandial BSGs yesterday were all elevated. Tightened CF at HS. * Expect BSGs to trend down with additional basal dose given this AM. 03/30/21 * Received 89 units of insulin yesterday (35 units of basal and 54 units of prandial/correctional bolus) * BSGs continue to be elevated, ranging 122-285 mg/dL yesterday * Fasting BSG of 263 mg/dL this morning * Will utilize overnight checks this evening in light of elevated BSGs today * Unclear reason for significantly elevated insulin needs (perhaps infection?) 03/29/21 * Patient received total of 126 units of insulin yesterday, of which only 35 units were basal insulin * Fasting BSG within range at 125 mg/dL - will continue same Lantus for now * Tightened CR this AM - will continue same. Unclear if the infection is related to increase need in insulin during hospital stay. Ideally would like more of a 50/50 split with basal/bolus insulin. Could consider adjustment of basal tomorrow if insulin needs remain increased 03/28/21 * Pt has received 78 units of insulin over the past 24hrs * 35 units of basal with Lantus * 43 units of bolus with NovoLog * BSGs 147-301 mg/dl * Blood sugars marck throughout the day, will tighten CF/CR * No change in basal at this time, want to make one change at a time with sensitive type 1 diabetic * BKA is not needed emergently as he is not septic or unstable, pt prefers to wait for Dr Soto to return to do the surgery, Dr Eason to see patient Monday regarding surgery as patient has previous vascular wound. 03/27/21 * 65 year old male, discharged home on March 24 after having removal of arterial graft from his leg in preparation for BKA later this month on IV Dapto + PO Cipro. Wound worsening, readmitted last night, IV Cefepime + Dapto, ortho eval, may need surgery moved up. * Patient known to glycemic service, managed on insulin pump as outpatient, will use basal bolus insulin as done previously this month * ADA & AACE recommend a goal blood sugar range 140-180 mg/dl for the majority of critically ill & non-critically ill patients. However, more stringent targets may be selected in individual cases. Will utilize more stringent goal of 110-140mg/dl based on patient age & comorbidities. Additionally, tighter glycemic control is warranted to facilitate wound/infection healing. PLAN FOR INPATIENT GLYCEMIC CONTROL: * Basal insulin: * Lantus 15 units SQ AM * Lantus 30-35 units SQ HS * Bolus insulin -continued CF AND CR * NovoLog per scale ACHS or Q6hrs while NPO * Goal Range: Low 110 mg/dL - High 140 mg/dL * Correction Factor: 20 mg/dL/unit at breakfast, lunch, and dinner, 20 mg/dL/unit at HS Breakfast, lunch, and dinner: * Nutritional / Prandial insulin per carb ratio of 1 unit per 3.5 grams CHO consumed HS: * Nutritional / Prandial insulin per carb ratio of 1 unit per 5 grams CHO consumed PLAN FOR DISCHARGE: * Likely OK to resume home insulin pump, A1c 7.3%
[2021-04-02] MEDS: DAPTOmycin 500 MG in SYRINGE 0 ML IV SCH (12:44)
--- NOTE | 2021-04-02 14:34 | Orthopedic Progress Note ---
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 Soto to come evaluate his right leg to determine definite timing of BKA right lower extremity. From past visits will continue to wait for the medial vascular wound to heal, continue wound vac and will continue to hold off on BKA at this time. He does have an outpatient appointment with Dr. Soto on 04/07 and will plan for him to keep that if he is discharged from the hospital prior to that day. If he's still in the hospital we can eval the leg wound and determine if it's ti me to get the BKA scheduled or not. Explained to him that this could be a few more weeks down the road. He understands and states to me that he is agreeable to discharge and coming back to hospital when the BKA is planned. Admission and Anticipated Discharge Date Admission Date: March 26, 2021 Subjective Patient resting in bed, no pain in right leg. States that he's awaiting for discharge, but there are some issues with his insurance and his IV antibiotics. Physical Exam Musculoskeletal: Did not look at right heel. Able to actively SLR right LE, full flexion of right knee. Wound vac in place and functioning. Results & Data ([facility]) Vital Signs (Past 12 Hours) Vital Signs Temp Pulse Resp BP Pulse Ox 04/02/21 07:00 36.7 C 76 20 136/71 97
[2021-04-02] MEDS ORDERED: bisacodyL 5 MG TABEC PO ONE (19:21)
[2021-04-02] MEDS: ATORVASTATIN 40 MG TAB PO SCH (20:56)
--- NOTE | 2021-04-02 22:44 | Hospitalist Progress Note ---
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 previous cultures -- VRE and pseudomonas. remains on daptomycin for former, cefepime for latter. ID consult completed today ([employer] [facility] [employer]) -- recs pending. ultimately needs BKA of right leg as the osteomyelitis has not cleared with conservative Rx due to severe PAD and ultimate infection of fem-posterior tibial bypass and s/p removal of the bypass graft (03/23/21) Ideally the right ghotra wound with wound vac in place needs to heal before BKA is done. The wound is about were the stump flap would take place. If not fully healed an d free of infection the BKA could get infected, leading to AKA. Appreciate Ms Star's assistance ([facility]). suspect patient will d/c home on IV abx while awaiting right ghotra wound to heal. (2) COPD (chronic obstructive pulmonary disease): Plan: stable no flare (3) Aortic stenosis: Plan: History of aortic stenosis with porcine valve replacement mild systolic murmur on exam only (4) CAD (coronary artery disease): Plan: Cont atorvastatin, metoprolol, chlorthalidone resume plavix in am cont asa (5) Hypothyroidism: Plan: Cont Synthroid therapy TSH 0.069 this month may need a dose adjustment (6) DVT prophylaxis: Plan: Lovenox (7) Diabetes type 1, controlled: Plan: Patient on insulin pump at home pharmacy providing glycemic management cont basal-bolus SC regimen labile BSGs throughout this stay most recent a1c 7.3% in January 2021 (8) Peripheral arterial disease: Plan: cont DAPT cont statin see above (9) Hypertension: Plan: cont chlorthalidone (10) Hypokalemia: Plan: replaced and resolved on BMP today (11) Anemia: Plan: check iron studies, b12, folate in am check cbc in am (12) Constipation: Plan: KUB x-ray yesterday with moderate stool, especially distal agree with patient that liquid stool is likely overflow dulcolax po x 1 tonight then bowel maintenance in am Admission and Anticipated Discharge Date Admission Date: March 26, 2021 Subjective did have a more satisfying bowel movement today - not as liquid as previous. no new complaints. he feels overall pretty good. eating well. he feels that he can give himself 3 antibiotic infusions/day, if needed, at his home. he has had PICC lines in the past. ID consult completed today - recs pending. Review of Systems Constitutional: no fever, no chills, no fatigue and no anorexia Respiratory: no cough and no dyspnea Cardiovascular: no chest pain Gastrointestinal: no abdominal pain Physical Exam Physical Exam: gen - NAD, lying comfortably in bed mouth - MMM, no thrush neck - no JVD heart - RRR, s1 s2, 1-2/6 POLO LSB lungs - CTA b/l abd - soft NT ND BS+ ext - right leg - wound vac in place medial aspect of mid-ghotra; dressings intact right foot; mild odor remains (eminates from the right foot); trace edema right leg, none on left vascular - pulses right foot <1+ at best, cap refill 3 sec; pulses left foot 2+, cap refill < 2 sec psych - a/o x 3 Results & Data Results & Data ([facility]) Vital Signs (Past 12 Hours) Vital Signs Temp Pulse Pulse Resp BP Pulse Ox 04/02/21 22:36 37.0 C 60 15 123/73 97 04/02/21 20:54 76 134/74 04/02/21 16:00 37.1 C 81 20 143/74 H 98 Laboratory Results Laboratory Results - last 24 hr 04/02/21 04/02/21 04/02/21 00:17 00:36 05:57 Sodium 136 Potassium 3.9 D Chloride 100 Carbon Dioxide 32 Anion Gap 4.0 BUN 25 H Creatinine 0.68 Est Cr Clr Drug Dosing 107.6 Est GFR ( Amer) 117.8 Est GFR (Non-Af Amer) 101.6 BUN/Creatinine Ratio 36.1 H Glucose 118 H POC Glucose 75 82 Calcium 9.2 04/02/21 04/02/21 04/02/21 08:24 12:01 17:13 Sodium Potassium Chloride Carbon Dioxide Anion Gap BUN Creatinine Est Cr Clr Drug Dosing Est GFR ( Amer) Est GFR (Non-Af Amer) BUN/Creatinine Ratio Glucose POC Glucose 125 H 187 H 132 H Calcium 04/02/21 20:39 Sodium Potassium Chloride Carbon Dioxide Anion Gap BUN Creatinine Est Cr Clr Drug Dosing Est GFR ( Amer) Est GFR (Non-Af Amer) BUN/Creatinine Ratio Glucose POC Glucose 150 H Calcium PG Care Time/CCT Total # of Minutes Spent Total Time Spent with Patient: Total time spent is greater than 50% in coordination of care (as documented) at patient's floor/unit and/or counseling patient: Coding Level of Care Code 04730 Subseq Hosp Care Lvl 2 Diagnoses 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 transplanted heart: [place] heart Hypothyroidism E03.9 Hypothyroidism type: unspecified DVT prophylaxis Z29.9 Diabetes type 1, controlled E10.9 Peripheral arterial disease I73.9 Hypertension I10 Hypertension type: unspecified Hypokalemia E87.6 Anemia D64.9 Constipation K59.00 (1) CAD (coronary artery disease) Associated angina: without angina Coronary Disease-Associated Artery/Lesion type: [place] artery [place] vs. transplanted heart: [place] heart Qualified Code(s): I25.10 - Atherosclerotic heart disease of [place] coronary artery without angina pectoris (2) Hypothyroidism Hypothyroidism type: unspecified Qualified Code(s): E03.9 - Hypothyroidism, unspecified (3) Hypertension Hypertension type: unspecified Qualified Code(s): I10 - Essential (primary) hypertension
[2021-04-02] MEDS: ENOXAPARIN INJ 40 MG/0.4 ML SYR SQ SCH (23:21)
[2021-04-03] MEDS: CEFEPIME 2,000 MG in SYRINGE 0 ML IV SCH ×2 (06:13→15:23)
[2021-04-03] MEDS: LEVOTHYROXINE SODIUM 175 MCG TABLET PO SCH (06:13)
[2021-04-03 07:07] LABS: Hematocrit (blood only) 29.5 % (42-52); Hemoglobin 9.1 g/dL (14.0-18.0); Mean Corpuscular Hemoglobin 24.1 pg (25-34); Mean Corpuscular Hgb Conc 30.8 g/dL (32-36); Mean Corpuscular Volume 78.2 fL (80-100); Mean Platelet Volume 8.9 fL (7.4-10.4); Platelet Count 443 K/uL (130-400); RDW Standard Deviation 45.4 fL (36.4-46.3); Red Blood Count 3.77 M/uL (4.7-6.1); White Blood Count 10.34 K/uL (4.8-10.8)
[2021-04-03] MEDS: CALCITRIOL 0.25 MCG CAPSULE PO SCH (09:08)
[2021-04-03] MEDS: CHLORTHALIDONE 25 MG TAB PO SCH (09:08)
[2021-04-03] MEDS: METOPROLOL TARTRATE 25 MG TAB PO SCH ×2 (09:08→21:26)
[2021-04-03] MEDS: PANTOprazole 40 MG TAB PO SCH (09:08)
[2021-04-03] MEDS: ASPIRIN 81 MG ECTAB PO SCH (09:08)
[2021-04-03] MEDS: INSULIN GLARGINE SOLOSTAR 100 UNITS/ML 3 ML PEN SC SCH ×2 (09:09→21:27)
[2021-04-03] MEDS: INSULIN ASPART 100 UNITS/ML 3 ML PEN SC SCH ×4 (09:10→21:28)
[2021-04-03 09:31] LABS: Folate (Folic Acid) 4.6 ng/ml (>5.38)
[2021-04-03] MEDS: FOLIC ACID 1 MG TAB PO SCH (13:03)
[2021-04-03] MEDS: DAPTOmycin 500 MG in SYRINGE 0 ML IV SCH (13:04)
[2021-04-03] MEDS ORDERED: PIPERACILL/TAZOBAC CONSULT ACTIVE PRN (15:17)
[2021-04-03] MEDS ORDERED: PIPERACILLIN/TAZOBACTAM 3.375 GM in DEXTROSE 5% 100 ML IV ONE (15:30)
[2021-04-03] MEDS ORDERED: PIPERACILLIN/TAZOBACTAM 4.5 GM in DEXTROSE 5% 100 ML IV SCH (15:30)
[2021-04-03] MEDS: PIPERACILLIN/TAZOBACTAM 3.375 GM in DEXTROSE 5% 100 ML IV SCH (21:25)
[2021-04-03] MEDS: ATORVASTATIN 40 MG TAB PO SCH (21:30)
[2021-04-03] MEDS: ENOXAPARIN INJ 40 MG/0.4 ML SYR SQ SCH (22:31)
--- NOTE | 2021-04-03 23:01 | Hospitalist Progress Note ---
Date of Service April 03, 2021 Assessment & Plan (1) Chronic osteomyelitis of right foot: Plan: right foot. previous cultures -- VRE and pseudomonas. Jacob HURTADO telehealth consult/recs appreciated. advised d/c of dapto & cefepime -- change to IV zosyn 4.5gm q8h until right BKA is performed. ultimately needs BKA of right leg as the osteomyelitis has not cleared with conservative Rx due to severe PAD and ultimate infection of fem-posterior tibial bypass and s/p removal of the bypass graft (03/23/21) Ideally the right ghotra wound with wound vac in place needs to heal before BKA is done. The wound is about were the stump flap would take place. If not fully healed and free of infection the BKA could get infected, leading to AKA. Appreciate Ms Star's assistance ([facility]). has LUE peripheral IV in place since January; will need that discontinued, then place PICC. I am a bit concerned by the draining ulceration - does this need debridement; will d/w ortho. (2) Infected prosthetic vascular graft: Plan: s/p removal 03/23 (right leg graft). cont wound vac over ghotra wound on RLE. cont IV abx. (3) COPD (chronic obstructive pulmonary disease): Plan: stable no flare (4) Aortic stenosis: Plan: History of aortic stenosis with porcine valve replacement mild systolic murmur on exam only (5) CAD (coronary artery disease): Plan: Cont atorvastatin, metoprolol, chlorthalidone resume plavix in am if right foot does not require anything else surgically cont asa (6) Hypothyroidism: Plan: Cont Synthroid therapy TSH 0.069 this month may need a dose adjustment (7) Diabetes type 1, controlled: Plan: Patient on insulin pump at home pharmacy providing glycemic management cont basal-bolus SC regimen labile BSGs throughout this stay most recent a1c 7.3% in January 2021 (8) Peripheral arterial disease: Plan: cont DAPT cont statin see above (9) Hypertension: Plan: cont chlorthalidone (10) Hypokalemia: Plan: replaced and resolved (11) Anemia: Plan: Folate & Fe deficiency present - see below (12) Folate deficiency: Plan: start 1mg daily x 30 days (13) Iron deficiency: Plan: ferritin <20 give venofer 300mg IV x 1 tomorrow am (14) Constipation: Plan: resolved cont bowel maintenance (15) DVT prophylaxis: Plan: lovenox Admission and Anticipated Discharge Date Admission Date: March 26, 2021 Subjective no new complaints had large BM today eating well no leg complaints he is ok with PICC line and IV abx at home ID consult reviewed -- IV zosyn 4.5mg q8h advised until right BKA is performed Review of Systems Constitutional: no fever and no chills Respiratory: no cough, no dyspnea and no dyspnea on exertion Cardiovascular: no chest pain Gastrointestinal: no abdominal pain, no nausea and no vomiting Physical Exam Physical Exam: gen - NAD, lying comfortably in bed mouth - MMM, no thrush neck - no JVD heart - RRR, s1 s2, 1-2/6 POLO LSB lungs - CTA b/l abd - soft NT ND BS+ ext - right leg - wound vac in place medial aspect of mid-ghotra; dressings intact right foot; I removed the dressings of right foot completely; foul odor remains from the heel; black, necrotic eschar of entire heel present; there is a draining opening/ulceration posterior heel/achilles region; the right 5th toe is necrotic/eschar black as well; trace edema right leg, none on left vascular - pulses right foot <1+ at best, cap refill 3 sec; pulses left foot 2+, cap refill < 2 sec psych - a/o x 3 Results & Data Results & Data ([facility]) Vital Signs (Past 12 Hours) Vital Signs Temp Pulse Pulse Resp BP Pulse Ox 04/03/21 22:36 37.4 C 75 16 137/78 96 04/03/21 21:25 76 117/74 Laboratory Results Laboratory Results - last 24 hr 04/03/21 04/03/21 04/03/21 06:54 06:54 06:54 WBC 10.34 RBC 3.77 L Hgb 9.1 L Hct 29.5 L MCV 78.2 L MCH 24.1 L MCHC 30.8 L RDW Std Deviation 45.4 RDW Coeff of Chan 16.0 H Plt Count 443 H MPV 8.9 POC Glucose Iron 26 L Transferrin 227 Transferrin % Sat 8 L Ferritin 21.0 Total Creatine Kinase Vitamin B12 496 Folate 4.60 L 07/24/21 07/24/21 07/24/21 08:31 12:24 13:23 WBC RBC Hgb Hct MCV MCH MCHC RDW Std Deviation RDW Coeff of Chan Plt Count MPV POC Glucose 106 H 142 H Iron Transferrin Transferrin % Sat Ferritin Total Creatine Kinase 45 Vitamin B12 Folate 04/03/21 04/03/21 17:23 20:45 WBC RBC Hgb Hct MCV MCH MCHC RDW Std Deviation RDW Coeff of Chan Plt Count MPV POC Glucose 238 H 249 H Iron Transferrin Transferrin % Sat Ferritin Total Creatine Kinase Vitamin B12 Folate PG Care Time/CCT Total # of Minutes Spent Total Time Spent with Patient: Total time spent is greater than 50% in technical coordinator rdination of care (as documented) at patient's floor/unit and/or counseling patient: Coding Level of Care Code 05818 Subseq Hosp Care Lvl 3 Diagnoses COPD (chronic obstructive pulmonary disease) J44.9 Aortic stenosis I35.0 CAD (coronary artery disease) I25.10 Associated angina: without angina Coronary Disease-Associated Artery/Lesion type: [place] artery [place] vs. transplanted heart: [place] heart Hypothyroidism E03.9 Hypothyroidism type: unspecified Diabetes type 1, controlled E10.9 Peripheral arterial disease I73.9 Hypertension I10 Hypertension type: unspecified Hypokalemia E87.6 Anemia D64.9 Constipation K59.00 Chronic osteomyelitis of right foot M86.671 Folate deficiency E53.8 Iron deficiency E61.1 Infected prosthetic vascular graft T82.7XXA DVT prophylaxis Z29.9 (1) CAD (coronary artery disease) Associated angina: without angina Coronary Disease-Associated Artery/Lesion type: [place] artery [place] vs. transplanted heart: [place] heart Qualified Code(s): I25.10 - Atherosclerotic heart disease of [place] coronary artery without angina pectoris (2) Hypothyroidism Hypothyroidism type: unspecified Qualified Code(s): E03.9 - Hypothyroidism, unspecified (3) Hypertension Hypertension type: unspecified Qualified Code(s): I10 - Essential (primary) hypertension
[2021-04-04] MEDS: PIPERACILLIN/TAZOBACTAM 3.375 GM in DEXTROSE 5% 100 ML IV SCH ×2 (06:05→14:13)
[2021-04-04] MEDS: LEVOTHYROXINE SODIUM 175 MCG TABLET PO SCH (06:05)
[2021-04-04] MEDS: PANTOprazole 40 MG TAB PO SCH (09:44)
[2021-04-04] MEDS: ASPIRIN 81 MG ECTAB PO SCH (09:45)
[2021-04-04] MEDS: CALCITRIOL 0.25 MCG CAPSULE PO SCH (09:45)
[2021-04-04] MEDS: FOLIC ACID 1 MG TAB PO SCH (09:45)
[2021-04-04] MEDS: CHLORTHALIDONE 25 MG TAB PO SCH (09:45)
[2021-04-04] MEDS: METOPROLOL TARTRATE 25 MG TAB PO SCH ×2 (09:45→21:21)
[2021-04-04] MEDS: INSULIN GLARGINE SOLOSTAR 100 UNITS/ML 3 ML PEN SC SCH ×2 (09:47→21:21)
[2021-04-04] MEDS: INSULIN ASPART 100 UNITS/ML 3 ML PEN SC SCH ×4 (09:47→21:20)
[2021-04-04] MEDS ORDERED: IRON SUCROSE 300 MG in SODIUM CHLORIDE 0.9% 250 ML IV ONE (11:00)
[2021-04-04] MEDS: CLOPIDOGREL BISULFATE 75 MG TAB PO SCH (11:23)
[2021-04-04 11:53] LABS: BUN Creatinine Ratio 27.1 (10-20); C Reactive Protein 4.23 mg/dl (0-0.29); Calcium 9.2 mg/dl (8.5-10.1); Creatinine Clr Calc Pharmacy 74.6 ml/min; Est GFR (African American) 94.7 ml/min; Est GFR (Non-African American) 81.7 ml/min; Magnesium 1.7 mg/dl (1.8-2.4); Potassium 4.3 mmol/L (3.5-5.1)
--- NOTE | 2021-04-04 13:11 | Pharmacy Report ---
Pharmacy Glycemic Short Note 2 - Date of Service April 04, 2021 - Glycemic Short BSG Results (Last 24 hours): 04/03/21 04/03/21 04/04/21 17:23 20:45 08:20 Glucose POC Glucose 238 H 249 H 133 H 04/04/21 04/04/21 11:18 12:10 Glucose 232 H POC Glucose 193 H OUTPATIENT ANTIDIABETIC REGIMEN: * A1c 7.3% 01/21/21 * Novolog insulin pump * basal rate 1.3 units/hr * CF 40 mg/dl/unit * Carb ratio: 1 unit per 8 grams CHO ASSESSMENT: 04/04: * Patient received 113 units of SQ insulin yesterday * 50 units of basal * 63 units of bolus * Fasting BSG of 133 mg/dL is at goal. Continue current dose of Lantus. May need to increase AM dose if fasting continues to trend upward. * Post prandial BSGs are increasing throughout the day, therefore carb coverage will be tightened. 04/02: * Patient received total of 105 units of insulin yesterday, of which 50 units were basal insulin * Fasting BSG 118 mg/dL - AM BSGs improving each day since increasing to 50 units, may use scale for HS time to back off on dosing. Last night overnight BSGs in 70s * Plan to continue with tighten CR with breakfast, likely loosen rest of the day 04/01: * Pt received total 118 units of insulin yesterday; 50 units basal and 68 units bolus. * Fasting BSG looked much better controlled this AM with BSG of 145 mg/dl. Continued with current BID basal insulin dose. * Post-prandial BSGs were well controlled yesterday but pre-lunch BSG today was up to 300 mg/dl. This was most likely since the AM Novolog dose was given late at 1000 today and we did see the full effect of that with pre-lunch BSG check. * BSGs should trend down with dinner and HS checks today. No changes made with current parameters. 03/31/21: * Pt received total 112 units of insulin yesterday: 35 units basal and 77 units bolus * Fasting BSG still high today at 232 mg/dl. Therefore, added AM basal insulin coverage as well today. * Except for the dinner time BSG, post-prandial BSGs yesterday were all elevated. Tightened CF at HS. * Expect BSGs to trend down with additional basal dose given this AM. PLAN FOR INPATIENT GLYCEMIC CONTROL: * Basal insulin: * Lantus 15 units SQ AM * Lantus 30-35 units SQ HS * Bolus insulin -tighten carb coverage * NovoLog per scale ACHS or Q6hrs while NPO * Goal Range: Low 110 mg/dL - High 140 mg/dL * Correction Factor: 20 mg/dL/unit Breakfast: * Nutritional / Prandial insulin per carb ratio of 1 unit per 3 grams CHO consumed Lunch/dinner/HS: * Nutritional / Prandial insulin per carb ratio of 1 unit per 4 grams CHO consumed PLAN FOR DISCHARGE: * Likely OK to resume home insulin pump, A1c 7.3%
[2021-04-04] MEDS: PIPERACILLIN/TAZOBACTAM 4.5 GM in DEXTROSE 5% 100 ML IV SCH ×2 (14:55→22:04)
[2021-04-04] MEDS: MAGNESIUM SULFATE / D5W 1 GM/100 ML BAG IV SCH ×2 (15:36→17:44)
[2021-04-04] MEDS: ATORVASTATIN 40 MG TAB PO SCH (21:20)
[2021-04-04] MEDS: ENOXAPARIN INJ 40 MG/0.4 ML SYR SQ SCH (22:04)
--- NOTE | 2021-04-05 01:11 | Hospitalist Progress Note ---
Date of Service April 04, 2021 Assessment & Plan (1) Chronic osteomyelitis of right foot: Plan: right foot. previous cultures -- VRE and pseudomonas. [facility] telehealth consult completed -- advised d/c of dapto & cefepime -- change to IV zosyn 4.5gm q8h until right BKA is performed. ultimately needs BKA of right leg as the osteomyelitis has not cleared with conservative Rx due to severe PAD. 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 Ideally the right ghotra wound with wound vac in place needs to heal before BKA is done. If this wound isn't fully healed then this could compromise the BKA flap as the wound is quite close to where the BKA would be performed. Plan - Spoke with orthopedics, Dr Wei. Discussed his draining wound on right heel/achilles region. He advised a 3-part liquid to soak foot in twice daily (1/3 saline, 1/3 betadine, and 1/3 hydrogen peroxide). This may help keep bacterial load in the gangrenous heel down. consent for PICC obtained. PICC order placed. gave script to SW for his home zosyn. home tomorrow with PICC?? (2) Infected prosthetic vascular graft: Plan: s/p removal 03/23 (right leg graft). cont wound vac over ghotra wound on RLE. cont IV abx. (3) COPD (chronic obstructive pulmonary disease): Plan: stable no flare (4) Aortic stenosis: Plan: History of aortic stenosis with porcine valve replacement mild systolic murmur on exam only (5) CAD (coronary artery disease): Plan: Cont atorvastatin, metoprolol, chlorthalidone resume plavix cont asa (6) Hypothyroidism: Plan: Cont Synthroid therapy TSH 0.069 this month repeat as outpatient (7) Diabetes type 1, controlled: Plan: Patient on insulin pump at home pharmacy providing glycemic management cont basal-bolus SC regimen labile BSGs throughout this stay but reasonable control - especially in light of his right foot/leg issues most recent a1c 7.3% in January 2021 (8) Peripheral arterial disease: Plan: cont DAPT cont statin see above (9) Hypertension: Plan: cont chlorthalidone (10) Hypokalemia: Plan: replaced and resolved (11) Anemia: Plan: Folate & Fe deficiency present - see below (12) Folate deficiency: Plan: start 1mg daily x 30 days (13) Iron deficiency: Plan: ferritin <20 give venofer 300mg IV x 1 today can repeat tomorrow as well (14) Constipation: Plan: resolved cont bowel maintenance (15) DVT prophylaxis: Plan: lovenox Plan: home on Monday with PICC line, wound vac, etc?? Admission and Anticipated Discharge Date Admission Date: March 26, 2021 Subjective pt w/o new complaints eating decently no dyspnea no chest pain tolerated IV iron this am no abd pain no further diarrhea no pain RLE Review of Systems Review of Systems: gen - no fevers or chills CV - no chest pain pulm - no cough GI - no abd pain Physical Exam Physical Exam: gen - NAD, lying comfortably in bed mouth - MMM, no thrush neck - no JVD heart - RRR, s1 s2, 1-2/6 POLO LSB lungs - CTA b/l abd - soft NT ND BS+ ext - right leg - wound vac in place medial aspect of mid-ghotra -- no changes. Right foot - dressings were removed earlier by nursing staff. Necrotic/black eschar/dry gangrene 5th toe and entire heel. There is an open ulceration with ? visible achilles tendon on heel. Not as malodorous today. vascular - pulses right foot <1+ at best, cap refill 3 sec; pulses left foot 2+, cap refill < 2 sec psych - a/o x 3 Results & Data Results & Data ([facility]) Vital Signs (Past 12 Hours) Vital Signs Temp Pulse Pulse Resp BP BP Pulse Ox 04/04/21 22:16 36.9 C 77 16 146/77 H 95 04/04/21 21:17 74 125/72 04/04/21 15:33 36.8 C 70 16 123/72 95 Laboratory Results Laboratory Results - last 24 hr 04/04/21 04/04/21 04/04/21 08:20 11:18 12:10 Sodium 132 L Potassium 4.3 Chloride 96 L Carbon Dioxide 35 H Anion Gap 1.0 L BUN 27 H Creatinine 0.98 Est Cr Clr Drug Dosing 74.6 Est GFR ( Amer) 94.7 Est GFR (Non-Af Amer) 81.7 BUN/Creatinine Ratio 27.1 H Glucose 232 H POC Glucose 133 H 193 H Calcium 9.2 Magnesium 1.7 L C-Reactive Protein 4.23 H 04/04/21 04/04/21 17:23 21:03 Sodium Potassium Chloride Carbon Dioxide Anion Gap BUN Creatinine Est Cr Clr Drug Dosing Est GFR ( Amer) Est GFR (Non-Af Amer) BUN/Creatinine Ratio Glucose POC Glucose 114 H 148 H Calcium Magnesium C-Reactive Protein PG Care Time/CCT Total # of Minutes Spent Total Time Spent with Patient: Total time spent is greater than 50% in coordination of care (as documented) at patient's floor/unit and/or counseling patient: Coding Level of Care Code 64160 Subseq Hosp Care Lvl 3 Diagnoses Chronic osteomyelitis of right foot M86.671 Infected prosthetic vascular graft T82.7XXA COPD (chronic obstructive pulmonary disease) J44.9 Aortic stenosis I35.0 CAD (coronary artery disease) I25.10 Coronary Disease-Associated Artery/Lesion type: [place] artery [place] vs. transplanted heart: [place] heart Associated angina: without angina Hypothyroidism E03.9 Hypothyroidism type: unspecified Diabetes type 1, controlled E10.9 Peripheral arterial disease I73.9 Hypertension I10 Hypertension type: unspecified Hypokalemia E87.6 Anemia D64.9 Folate deficiency E53.8 Iron deficiency E61.1 Constipation K59.00 DVT prophylaxis Z29.9 (1) CAD (coronary artery disease) Coronary Disease-Associated Artery/Lesion type: [place] artery [place] vs. transplanted heart: [place] heart Associated angina: without angina Qualified Code(s): I25.10 - Atherosclerotic heart disease of [place] coronary artery without angina pectoris (2) Hypothyroidism Hypothyroidism type: unspecified Qualified Code(s): E03.9 - Hypothyroidism, unspecified (3) Hypertension Hypertension type: unspecified Qualified Code(s): I10 - Essential (primary) hypertension
[2021-04-05] MEDS: PIPERACILLIN/TAZOBACTAM 4.5 GM in DEXTROSE 5% 100 ML IV SCH ×3 (05:54→23:19)
[2021-04-05] MEDS: LEVOTHYROXINE SODIUM 175 MCG TABLET PO SCH (05:55)
[2021-04-05 05:59] LABS: Hematocrit (blood only) 28.2 % (42-52); Hemoglobin 8.9 g/dL (14.0-18.0)
[2021-04-05 06:27] LABS: BUN Creatinine Ratio 28.8 (10-20); Est GFR (African American) 111.9 ml/min; Est GFR (Non-African American) 96.6 ml/min; Magnesium 2.1 mg/dl (1.8-2.4); Potassium 3.3 mmol/L (3.5-5.1)
--- NOTE | 2021-04-05 08:01 | Hospitalist Progress Note ---
Date of Service April 05, 2021 Assessment & Plan (1) Chronic osteomyelitis of right foot: Plan: right foot. previous cultures -- VRE and pseudomonas. [facility] telehealth consult completed -- advised d/c of dapto & cefepime -- change to IV zosyn 4.5gm q8h until right BKA is performed. ultimately needs BKA of right leg as the osteomyelitis has not cleared with conservative Rx due to severe PAD. 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 Ideally the right ghotra wound with wound vac in place needs to heal before BKA is done. If this wound isn't fully healed then this could compromise the BKA flap as the wound is quite close to where the BKA would be performed. Plan - Spoke with orthopedics, Dr Wei. Discussed his draining wound on right heel/achilles region. He advised a 3-part liquid to soak foot in twice daily (1/3 saline, 1/3 betadine, and 1/3 hydrogen peroxide). This may help keep bacterial load in the gangrenous heel down. PICC line placed. Rx for Zosyn given to CM. --> Extended time spent coordinating with pharmacy/case management to arrange for IV abx at discharge. Ultimately decided (different company than we typically use) to do the 4 hour infusions over continuous and will plan for possible d/c tomorrow evening but patient will have to miss midnight dose of abx and resume home health for Monday morning with wound vac changes as well Will need continued abx until amputation scheduled. Weekly CBC, CMP on abx. Rx given Blood sugars increased this afternoon. Spoke with pharmacy who added additional insulin and tightened coverage. Did get some dextrose in his Venofer this morning but unclear why spiked so high. Repeating BSG this evening along with BMP (supplemented K this AM for K 3.3) and may need some IV insulin. Pharmacy to contact with evening sugars for continued management (2) Infected prosthetic vascular graft: Plan: s/p removal 03/23 (right leg graft). cont wound vac over ghotra wound on RLE. cont IV abx as above (3) COPD (chronic obstructive pulmonary disease): Plan: stable no flare (4) Aortic stenosis: Plan: History of aortic stenosis with porcine valve replacement mild systolic murmur on exam only (5) CAD (coronary artery disease): Plan: Cont atorvastatin, metoprolol, chlorthalidone resume plavix cont asa (6) Hypothyroidism: Plan: Cont Synthroid therapy TSH 0.069 this month repeat as outpatient (7) Diabetes type 1, controlled: Plan: Patient on insulin pump at home pharmacy providing glycemic management cont basal-bolus SC regimen labile BSGs throughout this stay but reasonable control UNTIL TODAY- especially in light of his right foot/leg issues most recent a1c 7.3% in January 2021 See above -- BSGs in 400s this afternoon. Additional insulin given and repeat BSG this evening. May require some IV insulin if remains elevated Continue to monitor (8) Peripheral arterial disease: Plan: cont DAPT cont statin see above (9) Hypertension: Plan: cont chlorthalidone (10) Hypokalemia: Plan: replaced and resolved but again low this morning and additional PO replacement ordered. Mag wnl Continue to monitor (11) Anemia: Plan: Folate & Fe deficiency present - see below (12) Folate deficiency: Plan: start 1mg daily x 30 days (13) Iron deficiency: Plan: ferritin <20 give venofer 300mg IV x 1 on 04/04 and repeat dose 04/05 Consider oral supplementation at discharge vs repeat venofer tomorrow but would be cautious with elevations in BSGs as above (14) Constipation: Plan: resolved cont bowel maintenance (15) DVT prophylaxis: Plan: lovenox Plan: Continued inpatient stay. Arranging IV abx. Has PICC line Elevated BSGs this afternoon and continuing to adjust insulin while inpatient Possible d/c tomorrow evening as above and home health to begin on Monday morning Admission and Anticipated Discharge Date Admission Date: March 26, 2021 Subjective Patient evaluated this morning. Pain well controlled. Wound vac changed this morning. Hopeful for d/c today if able to make arrangements, otherwise will plan for tomorrow. 2 small BM yesterday. No fever, chills, chest pain, shortness of breath, abdominal pain or other issues/complaints at this time. Review of Systems Review of Systems: All systems reviewed & are unremarkable except as noted in HPI & below Physical Exam Physical Exam: gen - NAD, lying comfortably in bed, no acute disress mouth - MMM, no thrush neck - no JVD heart - RRR, s1 s2, 1-2/6 POLO LSB lungs - CTA b/l abd - soft NT ND BS+ ext - right leg - wound vac in place medial aspect of mid-ghotra --changed this morning by wound RN. Right foot dressing c/d/i. Necrotic/black eschar/dry gangrene 5th toe and entire heel. There is an open ulceration with ? visible achilles tendon on heel. Not as malodorous today. vascular - pulses right foot <1+ at best, cap refill 3 sec; pulses left foot 2+, cap refill < 2 sec psych - a/o x 3 Results & Data Results & Data ([facility]) Vital Signs (Past 12 Hours) Vital Signs Temp Pulse Pulse Resp BP Pulse Ox 04/05/21 07:18 37.0 C 74 18 162/53 H 95 04/04/21 22:16 36.9 C 77 16 146/77 H 95 04/04/21 21:17 74 125/72 Laboratory Results 04/05/21 04/05/21 04/05/21 Range/Units 15:16 12:34 12:23 Hgb (14.0-18.0) g/dL Hct (42-52) % Sodium (136-145) mmol/L Potassium (3.5-5.1) mmol/L Chloride (98-107) mmol/L Carbon Dioxide (21-32) mmol/L Anion Gap (3-11) BUN (7-18) mg/dl Creatinine (0.6-1.4) mg/dl Est Cr Clr Drug Dosing ml/min Est GFR ( Amer) ml/min Est GFR (Non-Af Amer) ml/min BUN/Creatinine Ratio (10-20) Glucose (70-99) mg/dl POC Glucose 458 H* 464 H* 474 H* (70-99) mg/dl Calcium (8.5-10.1) mg/dl Magnesium (1.8-2.4) mg/dl 04/05/21 04/05/21 04/05/21 Range/Units 12:21 08:19 05:37 Hgb (14.0-18.0) g/dL Hct (42-52) % Sodium 133 L (136-145) mmol/L Potassium 3.3 L D (3.5-5.1) mmol/L Chloride 96 L (98-107) mmol/L Carbon Dioxide 33 H (21-32) mmol/L Anion Gap 4.0 (3-11) BUN 22 H (7-18) mg/dl Creatinine 0.77 (0.6-1.4) mg/dl Est Cr Clr Drug Dosing 95.0 ml/min Est GFR ( Amer) 111.9 ml/min Est GFR (Non-Af Amer) 96.6 ml/min BUN/Creatinine Ratio 28.8 H (10-20) Glucose 154 H (70-99) mg/dl POC Glucose 457 H* 195 H (70-99) mg/dl Calcium 9.0 (8.5-10.1) mg/dl Magnesium 2.1 (1.8-2.4) mg/dl 04/05/21 04/04/21 04/04/21 Range/Units 05:37 21:03 17:23 Hgb 8.9 L (14.0-18.0) g/dL Hct 28.2 L (42-52) % Sodium (136-145) mmol/L Potassium (3.5-5.1) mmol/L Chloride (98-107) mmol/L Carbon Dioxide (21-32) mmol/L Anion Gap (3-11) BUN (7-18) mg/dl Creatinine (0.6-1.4) mg/dl Est Cr Clr Drug Dosing ml/min Est GFR ( Amer) ml/min Est GFR (Non-Af Amer) ml/min BUN/Creatinine Ratio (10-20) Glucose (70-99) mg/dl POC Glucose 148 H 114 H (70-99) mg/dl Calcium (8.5-10.1) mg/dl Magnesium (1.8-2.4) mg/dl PG Care Time/CCT Total # of Minutes Spent Total Time Spent with Patient: Total time spent is greater than 50% in coordination of care (as documented) at patient's floor/unit and/or counseling patient: Coding Level of Care Code 71492 Subseq Hosp Care Lvl 3 Diagnoses Chronic osteomyelitis of right foot M86.671 Infected prosthetic vascular graft T82.7XXA COPD (chronic obstructive pulmonary disease) J44.9 Aortic stenosis I35.0 CAD (coronary artery disease) I25.10 Coronary Disease-Associated Artery/Lesion type: [place] artery [place] vs. transplanted heart: [place] heart Associated angina: without angina Hypothyroidism E03.9 Hypothyroidism type: unspecified Diabetes type 1, controlled E10.9 Peripheral arterial disease I73.9 Hypertension I10 Hypertension type: unspecified Hypokalemia E87.6 Anemia D64.9 Folate deficiency E53.8 Iron deficiency E61.1 Constipation K59.00 DVT prophylaxis Z29.9 (1) CAD (coronary artery disease) Coronary Disease-Associated Artery/Lesion type: [place] artery [place] vs. transplanted heart: [place] heart Associated angina: without angina Qualified Code(s): I25.10 - Atherosclerotic heart disease of [place] coronary artery without angina pectoris (2) Hypothyroidism Hypothyroidism type: unspecified Qualified Code(s): E03.9 - Hypothyroidism, unspecified (3) Hypertension Hypertension type: unspecified Qualified Code(s): I10 - Essential (primary) hypertension
[2021-04-05] MEDS ORDERED: POTASSIUM CHLORIDE CRTAB 20 MEQ TABCR PO SCH (08:15)
[2021-04-05] MEDS ORDERED: CLOPIDOGREL BISULFATE 75 MG TAB PO SCH (09:00)
[2021-04-05] MEDS ORDERED: IRON SUCROSE 300 MG in SODIUM CHLORIDE 0.9% 250 ML IV ONE (09:00)
[2021-04-05] MEDS: INSULIN GLARGINE SOLOSTAR 100 UNITS/ML 3 ML PEN SC SCH ×2 (09:33→21:55)
[2021-04-05] MEDS: INSULIN ASPART 100 UNITS/ML 3 ML PEN SC SCH ×4 (09:34→21:55)
[2021-04-05] MEDS: FOLIC ACID 1 MG TAB PO SCH (09:42)
[2021-04-05] MEDS: CALCITRIOL 0.25 MCG CAPSULE PO SCH (09:43)
[2021-04-05] MEDS: CHLORTHALIDONE 25 MG TAB PO SCH (09:43)
[2021-04-05] MEDS: CLOPIDOGREL BISULFATE 75 MG TAB PO SCH (09:43)
[2021-04-05] MEDS: ASPIRIN 81 MG ECTAB PO SCH (09:43)
[2021-04-05] MEDS: METOPROLOL TARTRATE 25 MG TAB PO SCH ×2 (09:48→23:27)
[2021-04-05] MEDS: PANTOprazole 40 MG TAB PO SCH (09:49)
[2021-04-05] MEDS ORDERED: INSULIN ASPART 100 UNITS/ML 3 ML PEN SC ONE (15:30)
--- NOTE | 2021-04-05 15:36 | Pharmacy Report ---
Pharmacy Glycemic Short Note 2 - Date of Service April 05, 2021 - Glycemic Short BSG Results (Last 24 hours): 04/04/21 04/04/21 04/05/21 17:23 21:03 05:37 Glucose 154 H POC Glucose 114 H 148 H 04/05/21 04/05/21 04/05/21 08:19 12:21 12:23 Glucose POC Glucose 195 H 457 H* 474 H* 04/05/21 04/05/21 12:34 15:16 Glucose POC Glucose 464 H* 458 H* OUTPATIENT ANTIDIABETIC REGIMEN: * A1c 7.3% 01/21/21 * Novolog insulin pump * basal rate 1.3 units/hr * CF 40 mg/dl/unit * Carb ratio: 1 unit per 8 grams CHO ASSESSMENT: 04/05 * Patient received 109 units of insulin yesterday (50 units of basal and 59 units of bolus insulin) * Patient's BSGs yesterday were [phone] mg/dL. * Fasting this morning was 195 mg/dL which was slightly higher than previous days. Still continue with basal insulin. * Lunch BSG significantly elevated at almost 500 mg/dL. Loosened CF since patient tends to plummet with higher BSGs and CF of 20. 2 hour recheck still elevated. Give additional insulin with CF of 50 mg/dL. * Unable to give IV insulin due to potassium of 3.3 mEq/L. 04/04: * Patient received 113 units of SQ insulin yesterday * 50 units of basal * 63 units of bolus * Fasting BSG of 133 mg/dL is at goal. Continue current dose of Lantus. May need to increase AM dose if fasting continues to trend upward. * Post prandial BSGs are increasing throughout the day, therefore carb coverage will be tightened. 04/02: * Patient received total of 105 units of insulin yesterday, of which 50 units were basal insulin * Fasting BSG 118 mg/dL - AM BSGs improving each day since increasing to 50 u nits, may use scale for HS time to back off on dosing. Last night overnight BSGs in 70s * Plan to continue with tighten CR with breakfast, likely loosen rest of the day 04/01: * Pt received total 118 units of insulin yesterday; 50 units basal and 68 units bolus. * Fasting BSG looked much better controlled this AM with BSG of 145 mg/dl. Continued with current BID basal insulin dose. * Post-prandial BSGs were well controlled yesterday but pre-lunch BSG today was up to 300 mg/dl. This was most likely since the AM Novolog dose was given late at 1000 today and we did see the full effect of that with pre-lunch BSG check. * BSGs should trend down with dinner and HS checks today. No changes made with current parameters. 03/31/21: * Pt received total 112 units of insulin yesterday: 35 units basal and 77 units bolus * Fasting BSG still high today at 232 mg/dl. Therefore, added AM basal insulin coverage as well today. * Except for the dinner time BSG, post-prandial BSGs yesterday were all elevated. Tightened CF at HS. * Expect BSGs to trend down with additional basal dose given this AM. PLAN FOR INPATIENT GLYCEMIC CONTROL: * Basal insulin: * Lantus 15 units SQ AM * Lantus 30-35 units SQ HS * Bolus insulin -tighten carb coverage * NovoLog per scale ACHS or Q6hrs while NPO * Goal Range: Low 110 mg/dL - High 140 mg/dL * Correction Factor: (variable) mg/dL/unit Breakfast: * Nutritional / Prandial insulin per carb ratio of 1 unit per 3 grams CHO c onsumed Lunch/dinner/HS: * Nutritional / Prandial insulin per carb ratio of 1 unit per 4 grams CHO consumed PLAN FOR DISCHARGE: * Likely OK to resume home insulin pump, A1c 7.3%
[2021-04-05 18:06] LABS: BUN Creatinine Ratio 26.1 (10-20); Calcium 8.6 mg/dl (8.5-10.1); Creatinine Clr Calc Pharmacy 80.4 ml/min; Est GFR (African American) 103.6 ml/min; Est GFR (Non-African American) 89.4 ml/min; Potassium 3.6 mmol/L (3.5-5.1)
[2021-04-05] MEDS: ATORVASTATIN 40 MG TAB PO SCH (21:55)
[2021-04-05] MEDS: ENOXAPARIN INJ 40 MG/0.4 ML SYR SQ SCH (23:26)
[2021-04-06] MEDS: LEVOTHYROXINE SODIUM 175 MCG TABLET PO SCH (05:58)
[2021-04-06 06:30] LABS: Hematocrit (blood only) 28.4 % (42-52); Hemoglobin 8.8 g/dL (14.0-18.0); Mean Corpuscular Volume 77.6 fL (80-100); Mean Platelet Volume 8.8 fL (7.4-10.4); Platelet Count 462 K/uL (130-400); RDW Coefficient of Variation 15.9 % (11.5-14.5); RDW Standard Deviation 45.4 fL (36.4-46.3); Red Blood Count 3.66 M/uL (4.7-6.1)
[2021-04-06 06:56] LABS: Basophils # (auto) 0.03 K/uL (0-0.2); Basophils % (auto) 0.3 %; Eosinophils # (auto) 0.15 K/uL (0-0.5); Eosinophils % (auto) 1.6 %; Immature Granulocytes # (auto) 0.04 K/uL (0.00-0.02); Immature Granulocytes % (auto) 0.4 %; Lymphocytes % (auto) 18.9 %; Monocytes # (auto) 1.19 K/uL (0.11-0.59); Monocytes % (auto) 12.5 %; Neutrophils # (auto) 6.29 K/uL (1.4-6.5); Neutrophils % (auto) 66.3 %; RBC Morphology Unremarkable
[2021-04-06 07:07] LABS: BUN Creatinine Ratio 33.8 (10-20); Calcium 8.8 mg/dl (8.5-10.1); Creatinine Clr Calc Pharmacy 107.6 ml/min; Est GFR (African American) 117.8 ml/min; Est GFR (Non-African American) 101.6 ml/min; Potassium 3.1 mmol/L (3.5-5.1)
[2021-04-06 07:10] LABS: Albumin Globulin Ratio 0.3 (0.9-2); Bilirubin,Total 0.4 mg/dl (0.2-1); Globulin 5.8 gm/dl (2.5-4.0); Total Protein 7.8 gm/dl (6.4-8.2)
[2021-04-06] MEDS: PIPERACILLIN/TAZOBACTAM 4.5 GM in DEXTROSE 5% 100 ML IV SCH ×3 (07:47→21:24)
[2021-04-06] MEDS ORDERED: POTASSIUM CHLORIDE CRTAB 20 MEQ TABCR PO STA (08:03)
--- NOTE | 2021-04-06 08:04 | Hospitalist Progress Note ---
Date of Service April 06, 2021 Assessment & Plan (1) Chronic osteomyelitis of right foot: Plan: right foot. previous cultures -- VRE and pseudomonas. [facility] telehealth consult completed -- advised d/c of dapto & cefepime -- change to IV zosyn 4.5gm q8h until right BKA is performed. ultimately needs BKA of right leg as the osteomyelitis has not cleared with conservative Rx due to severe PAD. 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 Ideally the right ghotra wound with wound vac in place needs to heal before BKA is done. If this wound isn't fully healed then this could compromise the BKA flap as the wound is quite close to where the BKA would be performed. Plan - Spoke with orthopedics, Dr Wei. * Discussed his draining wound on right heel/achilles region. He advised a 3- part liquid to soak foot in twice daily (1/3 saline, 1/3 betadine, and 1/3 hydrogen peroxide). This may help keep bacterial load in the gangrenous heel down. * PICC line placed. Rx for Zosyn given to CM. Weekly CBC, CMP * --> Extended time spent coordinating with pharmacy/case management to arrange for IV abx at discharge. Blood sugars up into the 400s yesterday -- discussed with pharmacy and adjustments made. Improved this morning, however patient Type I and discussed bringing in his own pump to see needs give increased needs while inpatient (suspected lower in i nfection) --> Changed over to his home pump this afternoon and sugars again up to the 400s. Discussed with pharmacy and his usual dose has been much lower than what he has been getting inpatient. Increased basal rate after discussion with corporate safety manager but had contacted Endocrinology for addidional recommendations in hopes of good plan for d/c tomorrow hopefully Replaced K with 40meq this morning and scheduled additional 40meq this afternoon Continue to monitor (2) Infected prosthetic vascular graft: Plan: s/p removal 03/23 (right leg graft). cont wound vac over ghotra wound on RLE. cont IV abx as above (3) COPD (chronic obstructive pulmonary disease): Plan: stable no flare (4) Aortic stenosis: Plan: History of aortic stenosis with porcine valve replacement mild systolic murmur on exam only (5) CAD (coronary artery disease): Plan: Cont atorvastatin, metoprolol, chlorthalidone resumed plavix cont asa (6) Hypothyroidism: Plan: Cont Synthroid therapy TSH 0.069 this month repeat as outpatient (7) Diabetes type 1, controlled: Plan: Patient on insulin pump at home pharmacy providing glycemic management cont basal-bolus SC regimen labile BSGs throughout this stay but reasonable control UNTIL TODAY- especially in light of his right foot/leg issues most recent a1c 7.3% in January 2021 See above -- BSGs again 400s this afternoon. Back on his home insulin pump --> basal rate increased as above and continuing to monitor to see what is needs are for better plan tomorrow Continue to monitor (8) Peripheral arterial disease: Plan: cont DAPT cont statin see above (9) Hypertension: Plan: BP stable 135/73 cont chlorthalidone (10) Hypokalemia: Plan: secondary to insulin/diuretic/infection 3.1 today -- 40meq this morning and additional 40meq scheduled for this afte rnoon Mag 2.0 BMP in AM (11) Anemia: Plan: Folate & Fe deficiency present - see below (12) Folate deficiency: Plan: Initiated and continued 1mg daily x 30 days (13) Iron deficiency: Plan: ferritin <20 give Venofer 300mg IV x 1 on 04/04 and repeat dose 04/05 Started oral supplementation today to prevent extra dextrose given elevated BSGs (14) Constipation: Plan: resolved cont bowel maintenance (15) DVT prophylaxis: Plan: lovenox Plan: Continued inpatient stay. Arranging IV abx. Has PICC line Elevated BSGs this afternoon and continuing to adjust insulin while inpatient and back on his home pump Possible d/c tomorrow if blood sugars under reasonable control and wound vac changed in AM (notified wound RN today of continued inpatient stay), and home health/infusion arranged Admission and Anticipated Discharge Date Admission Date: March 26, 2021 Subjective Patient evaluated this morning. Initially hopes to go home today, however sugars remained elevated yesterday but are improved today. Patient type I and did not have his pump/supplies with him. Asked family to bring in today so that we can switch him over and see what is needs are/see if we need to make adjustments. He states he has appt with Dr Soto tomorrow at one and is very concerned a bout the abx and wound vac and making appointment all at same time. Discussed may be better to monitor on home pump today into tomorrow, and will coordinate with wound care for wound vac change in AM and notify Dr Soto of continued inpatient status as well as coordinate with CM for home IV abx company and home health for the wound vac. Patient states he is comfortable. Pain controlled, erythema almost completely gone. No fever, chills, chest pain, shortness of breath, abdominal pain, nausea vomiting, dysuria at this time. Review of Systems Review of Systems: All systems reviewed & are unremarkable except as noted in HPI & below Physical Exam Physical Exam: gen - NAD, lying comfortably in bed, no acute disress mouth - MMM, no thrush neck - no JVD heart - RRR, s1 s2, 1-2/6 POLO LSB lungs - CTA b/l abd - soft NT ND BS+ ext - right leg - wound vac in place medial aspect of mid-ghotra --looks good, no surrounding erythema. intact. Right foot dressing c/d/i. Necrotic/black eschar/dry gangrene 5th toe and entire heel. There is an open ulceration on heel but odor continues to improve vascular - pulses right foot <1+ at best, cap refill 3 sec; pulses left foot 2+, cap refill < 2 sec psych - a/o x 3 Results & Data Results & Data ([facility]) Vital Signs (Past 12 Hours) Vital Signs Temp Pulse Pulse Resp BP Pulse Ox 04/06/21 07:30 36.8 C 74 18 146/72 H 95 04/05/21 22:06 37.1 C 76 16 129/78 94 Laboratory Results 04/06/21 04/06/21 04/06/21 Range/Units 05:55 05:55 05:55 WBC 9.50 (4.8-10.8) K/uL RBC 3.66 L (4.7-6.1) M/uL Hgb 8.8 L (14.0-18.0) g/dL Hct 28.4 L (42-52) % MCV 77.6 L (80-100) fL MCH 24.0 L (25-34) pg MCHC 31.0 L (32-36) g/dL RDW Std Deviation 45.4 (36.4-46.3) fL RDW Coeff of Chan 15.9 H (11.5-14.5) % Plt Count 462 H (130-400) K/uL MPV 8.8 (7.4-10.4) fL Immature Gran % (Auto) 0.4 % Neut % (Auto) 66.3 % Lymph % (Auto) 18.9 % Grimes % (Auto) 12.5 % Eos % (Auto) 1.6 % Baso % (Auto) 0.3 % Neut # (Auto) 6.29 (1.4-6.5) K/uL Lymph # (Auto) 1.80 (1.2-3.4) K/uL Grimes # (Auto) 1.19 H (0.11-0.59) K/uL Eos # (Auto) 0.15 (0-0.5) K/uL Baso # (Auto) 0.03 (0-0.2) K/uL Immature Gran # (Auto) 0.04 H (0.00-0.02) K/uL RBC Morphology Unremarkable ESR 94 H (0-20) mm/hr Sodium 132 L (136-145) mmol/L Potassium 3.1 L (3.5-5.1) mmol/L Chloride 97 L (98-107) mmol/L Carbon Dioxide 30 (21-32) mmol/L Anion Gap 5.0 (3-11) BUN 23 H (7-18) mg/dl Creatinine 0.68 (0.6-1.4) mg/dl Est Cr Clr Drug Dosing 107.6 ml/min Est GFR ( Amer) 117.8 ml/min Est GFR (Non-Af Amer) 101.6 ml/min BUN/Creatinine Ratio 33.8 H (10-20) Glucose 191 H (70-99) mg/dl POC Glucose (70-99) mg/dl Calcium 8.8 (8.5-10.1) mg/dl Total Bilirubin 0.4 (0.2-1) mg/dl AST 17 (15-37) U/L ALT 15 (12-78) U/L Alkaline Phosphatase 125 H (45-117) U/L Total Protein 7.8 (6.4-8.2) gm/dl Albumin 2.0 L (3.4-5.0) gm/dl Globulin 5.8 H (2.5-4.0) gm/dl Albumin/Globulin Ratio 0.3 L (0.9-2) 04/05/21 04/05/21 04/05/21 Range/Units 20:56 17:28 17:15 WBC (4.8-10.8) K/uL RBC (4.7-6.1) M/uL Hgb (14.0-18.0) g/dL Hct (42-52) % MCV (80-100) fL MCH (25-34) pg MCHC (32-36) g/dL RDW Std Deviation (36.4-46.3) fL RDW Coeff of Chan (11.5-14.5) % Plt Count (130-400) K/uL MPV (7.4-10.4) fL Immature Gran % (Auto) % Neut % (Auto) % Lymph % (Auto) % [place]imes % (Auto) % Eos % (Auto) % Baso % (Auto) % Neut # (Auto) (1.4-6.5) K/uL Lymph # (Auto) (1.2-3.4) K/uL Grimes # (Auto) (0.11-0.59) K/uL Eos # (Auto) (0-0.5) K/uL Baso # (Auto) (0-0.2) K/uL Immature Gran # (Auto) (0.00-0.02) K/uL RBC Morphology ESR (0-20) mm/hr Sodium 130 L (136-145) mmol/L Potassium 3.6 (3.5-5.1) mmol/L Chloride 93 L (98-107) mmol/L Carbon Dioxide 31 (21-32) mmol/L Anion Gap 6.0 (3-11) BUN 24 H (7-18) mg/dl Creatinine 0.91 (0.6-1.4) mg/dl Est Cr Clr Drug Dosing 80.4 ml/min Est GFR ( Amer) 103.6 ml/min Est GFR (Non-Af Amer) 89.4 ml/min BUN/Creatinine Ratio 26.1 H (10-20) Glucose 287 H (70-99) mg/dl POC Glucose 290 H 327 H* (70-99) mg/dl Calcium 8.6 (8.5-10.1) mg/dl Total Bilirubin (0.2-1) mg/dl AST (15-37) U/L ALT (12-78) U/L Alkaline Phosphatase (45-117) U/L Total Protein (6.4-8.2) gm/dl Albumin (3.4-5.0) gm/dl Globulin (2.5-4.0) gm/dl Albumin/Globulin Ratio (0.9-2) 04/05/21 04/05/21 04/05/21 Range/Units 15:16 12:34 12:23 WBC (4.8-10.8) K/uL RBC (4.7-6.1) M/uL Hgb (14.0-18.0) g/dL Hct (42-52) % MCV (80-100) fL MCH (25-34) pg MCHC (32-36) g/dL RDW Std Deviation (36.4-46.3) fL RDW Coeff of Chan (11.5-14.5) % Plt Count (130-400) K/uL MPV (7.4-10.4) fL Immature Gran % (Auto) % Neut % (Auto) % Lymph % (Auto) % [place]imes % (Auto) % Eos % (Auto) % Baso % (Auto) % Neut # (Auto) (1.4-6.5) K/uL Lymph # (Auto) (1.2-3.4) K/uL [place]imes # (Auto) (0.11-0.59) K/uL Eos # (Auto) (0-0.5) K/uL Baso # (Auto) (0-0.2) K/uL Immature Gran # (Auto) (0.00-0.02) K/uL RBC Morphology ESR (0-20) mm/hr Sodium (136-145) mmol/L Potassium (3.5-5.1) mmol/L Chloride (98-107) mmol/L Carbon Dioxide (21-32) mmol/L Anion Gap (3-11) BUN (7-18) mg/dl Creatinine (0.6-1.4) mg/dl Est Cr Clr Drug Dosing ml/min Est GFR ( Amer) ml/min Est GFR (Non-Af Amer) ml/min BUN/Creatinine Ratio (10-20) Glucose (70-99) mg/dl POC Glucose 458 H* 464 H* 474 H* (70-99) mg/dl Calcium (8.5-10.1) mg/dl Total Bilirubin (0.2-1) mg/dl AST (15-37) U/L ALT (12-78) U/L Alkaline Phosphatase (45-117) U/L Total Protein (6.4-8.2) gm/dl Albumin (3.4-5.0) gm/dl Globulin (2.5-4.0) gm/dl Albumin/Globulin Ratio (0.9-2) 04/05/21 04/05/21 Range/Units 12:21 08:19 WBC (4.8-10.8) K/uL RBC (4.7-6.1) M/uL Hgb (14.0-18.0) g/dL Hct (42-52) % MCV (80-100) fL MCH (25-34) pg MCHC (32-36) g/dL RDW Std Deviation (36.4-46.3) fL RDW Coeff of Chan (11.5-14.5) % Plt Count (130-400) K/uL MPV (7.4-10.4) fL Immature Gran % (Auto) % Neut % (Auto) % Lymph % (Auto) % [place] % (Auto) % Eos % (Auto) % Baso % (Auto) % Neut # (Auto) (1.4-6.5) K/uL Lymph # (Auto) (1.2-3.4) K/uL [place]imes # (Auto) (0.11-0.59) K/uL Eos # (Auto) (0-0.5) K/uL Baso # (Auto) (0-0.2) K/uL Immature Gran # (Auto) (0.00-0.02) K/uL RBC Morphology ESR (0-20) mm/hr Sodium (136-145) mmol/L Potassium (3.5-5.1) mmol/L Chloride (98-107) mmol/L Carbon Dioxide (21-32) mmol/L Anion Gap (3-11) BUN (7-18) mg/dl Creatinine (0.6-1.4) mg/dl Est Cr Clr Drug Dosing ml/min Est GFR ( Amer) ml/min Est GFR (Non-Af Amer) ml/min BUN/Creatinine Ratio (10-20) Glucose (70-99) mg/dl POC Glucose 457 H* 195 H (70-99) mg/dl Calcium (8.5-10.1) mg/dl Total Bilirubin (0.2-1) mg/dl AST (15-37) U/L ALT (12-78) U/L Alkaline Phosphatase (45-117) U/L Total Protein (6.4-8.2) gm/dl Albumin (3.4-5.0) gm/dl Globulin (2.5-4.0) gm/dl Albumin/Globulin Ratio (0.9-2) PG Care Time/CCT Total # of Minutes Spent Total Time Spent with Patient: Total time spent is greater than 50% in coordination of care (as documented) at patient's floor/unit and/or counseling patient: Coding Level of Care Code 48569 Subseq Hosp Care Lvl 3 Diagnoses Chronic osteomyelitis of right foot M86.671 Infected prosthetic vascular graft T82.7XXA COPD (chronic obstructive pulmonary disease) J44.9 Aortic stenosis I35.0 CAD (coronary artery disease) I25.10 Coronary Disease-Associated Artery/Lesion type: [place] artery [place] vs. transplanted heart: [place] heart Associated angina: without angina Hypothyroidism E03.9 Hypothyroidism type: unspecified Diabetes type 1, controlled E10.9 Peripheral arterial disease I73.9 Hypertension I10 Hypertension type: unspecified Hypokalemia E87.6 Anemia D64.9 Folate deficiency E53.8 Iron deficiency E61.1 Constipation K59.00 DVT prophylaxis Z29.9 (1) CAD (coronary artery disease) Coronary Disease-Associated Artery/Lesion type: [place] artery [place] vs. transplanted heart: [place] heart Associated angina: without angina Qualified Code(s): I25.10 - Atherosclerotic heart disease of [place] coronary artery without angina pectoris (2) Hypothyroidism Hypothyroidism type: unspecified Qualified Code(s): E03.9 - Hypothyroidism, unspecified (3) Hypertension Hypertension type: unspecified Qualified Code(s): I10 - Essential (primary) hypertension
[2021-04-06] MEDS: ASPIRIN 81 MG ECTAB PO SCH (09:18)
[2021-04-06] MEDS: PANTOprazole 40 MG TAB PO SCH (09:18)
[2021-04-06] MEDS: FERROUS SULFATE 325 MG TAB PO SCH (09:18)
[2021-04-06] MEDS: CALCITRIOL 0.25 MCG CAPSULE PO SCH (09:19)
[2021-04-06] MEDS: CHLORTHALIDONE 25 MG TAB PO SCH (09:19)
[2021-04-06] MEDS: FOLIC ACID 1 MG TAB PO SCH (09:20)
[2021-04-06] MEDS: CLOPIDOGREL BISULFATE 75 MG TAB PO SCH (09:20)
[2021-04-06] MEDS: METOPROLOL TARTRATE 25 MG TAB PO SCH ×2 (09:20→21:20)
[2021-04-06] MEDS: INSULIN ASPART 100 UNITS/ML 3 ML PEN SC SCH ×2 (09:25→13:54)
[2021-04-06] MEDS: INSULIN GLARGINE SOLOSTAR 100 UNITS/ML 3 ML PEN SC SCH (09:31)
[2021-04-06] MEDS ORDERED: INSULIN ASPART 100 UNITS/ML VIAL SC PRN (14:00)
[2021-04-06] MEDS ORDERED: INSULIN ASPART 100 UNITS/ML 3 ML PEN SC ONE (14:00)
[2021-04-06] MEDS ORDERED: POTASSIUM CHLORIDE CRTAB 20 MEQ TABCR PO ONE (15:00)
--- NOTE | 2021-04-06 16:08 | Pharmacy Report ---
Pharmacy Glycemic Short Note 2 - Date of Service April 06, 2021 - Glycemic Short BSG Results (Last 24 hours): 04/05/21 04/05/21 04/05/21 17:15 17:28 20:56 Glucose 287 H POC Glucose 327 H* 290 H 04/06/21 04/06/21 04/06/21 05:55 08:22 12:29 Glucose 191 H POC Glucose 160 H 368 H* 04/06/21 12:30 Glucose POC Glucose 425 H* OUTPATIENT ANTIDIABETIC REGIMEN: * A1c 7.3% 01/21/21 * Novolog insulin pump * basal rate 1.3 units/hr * CF 40 mg/dl/unit * Carb ratio: 1 unit per 8 grams CHO ASSESSMENT: 04/06: * Pt received total 142 units of insulin yesterday: 50 units basal and 92 units bolus. * Fasting and post-prandial BSGs have been high since yesterday. Pre-lunch BSGs going higher than 400. * Spoke to Rosey Preston, plan for patient to be discharged tomorrow. Pt's daughter was contacted and she brought in pt's supplies to resume his pump this afternoon. * Since pre-lunch BSG was above 400, an additional 10 units of Novolog was given this afternoon. * Pump settings from home would only give patient around 60-65 units of insulin in 24 hrs but patient has been requiring over 100 units as inpatient. * D/w Lillie Cerrato, consumer educator, pump settings changed at 1600 today. * Basal rate increased to 1.65 units/hr; CF and CR tightened. 04/05 * Patient received 109 units of insulin yesterday (50 units of basal and 59 units of bolus insulin) * Patient's BSGs yesterday were [phone] mg/dL. * Fasting this morning was 195 mg/dL which was slightly higher than previous days. Still continue with basal insulin. * Lunch BSG significantly elevated at almost 500 mg/dL. Loosened CF since patient tends to plummet with higher BSGs and CF of 20. 2 hour recheck still elevated. Give additional insulin with CF of 50 mg/dL. * Unable to give IV insulin due to potassium of 3.3 mEq/L. 04/04: * Patient received 113 units of SQ insulin yesterday * 50 units of basal * 63 units of bolus * Fasting BSG of 133 mg/dL is at goal. Continue current dose of Lantus. May need to increase AM dose if fasting continues to trend upward. * Post prandial BSGs are increasing throughout the day, therefore carb coverage will be tightened. 04/02: * Patient received total of 105 units of insulin yesterday, of which 50 units were basal insulin * Fasting BSG 118 mg/dL - AM BSGs improving each day since increasing to 50 units, may use scale for HS time to back off on dosing. Last night overnight BSGs in 70s * Plan to continue with tighten CR with breakfast, likely loosen rest of the day 04/01: * Pt received total 118 units of insulin yesterday; 50 units basal and 68 units bolus. * Fasting BSG looked much better controlled this AM with BSG of 145 mg/dl. Continued with current BID basal insulin dose. * Post-prandial BSGs were well controlled yesterday but pre-lunch BSG today was up to 300 mg/dl. This was most likely since the AM Novolog dose was given late at 1000 today and we did see the full effect of that with pre-lunch BSG check. * BSGs should trend down with dinner and HS checks today. No changes made with current parameters. 03/31/21: * Pt received total 112 units of insulin yesterday: 35 units basal and 77 units bolus * Fasting BSG still high today at 232 mg/dl. Therefore, added AM basal insulin coverage as well today. * Except for the dinner time BSG, post-prandial BSGs yesterday were all elevated. Tightened CF at HS. * Expect BSGs to trend down with additional basal dose given this AM. PLAN FOR INPATIENT GLYCEMIC CONTROL: Patient's insulin pump resumed this afternoon around 12:30 pm. With the help of consumer educator, pump settings increased at 1600 as follows: * Basal rate increased to 1.65 units/hr * From 0000 to 1000 AM (Breakfast): CF = 20, CR = 1:4 * From 1000 AM to 0000 (Lunch, Dinner): CF = 25, CR = 1:5 PLAN FOR DISCHARGE: * Continue home insulin pump, A1c 7.3%. * Prompt follow up with Endocrinology office on discharge for any adjustments.
[2021-04-06] MEDS: NovoLOG INSULIN PUMP SCH ×2 (17:59→21:21)
[2021-04-06] MEDS: ATORVASTATIN 40 MG TAB PO SCH (21:20)
[2021-04-06] MEDS: ENOXAPARIN INJ 40 MG/0.4 ML SYR SQ SCH (23:14)
[2021-04-07] MEDS: INSULIN ASPART 100 UNITS/ML 3 ML PEN SC SCH ×4 (00:42→03:59)
[2021-04-07] MEDS: PIPERACILLIN/TAZOBACTAM 4.5 GM in DEXTROSE 5% 100 ML IV SCH (03:52)
[2021-04-07] MEDS: LEVOTHYROXINE SODIUM 175 MCG TABLET PO SCH (05:40)
[2021-04-07] MEDS: METOPROLOL TARTRATE 25 MG TAB PO SCH (08:01)
[2021-04-07] MEDS: PANTOprazole 40 MG TAB PO SCH (08:01)
[2021-04-07] MEDS: FERROUS SULFATE 325 MG TAB PO SCH (08:03)
[2021-04-07] MEDS: CHLORTHALIDONE 25 MG TAB PO SCH (08:03)
[2021-04-07] MEDS: FOLIC ACID 1 MG TAB PO SCH (08:03)
[2021-04-07] MEDS: CALCITRIOL 0.25 MCG CAPSULE PO SCH (08:03)
[2021-04-07] MEDS: CLOPIDOGREL BISULFATE 75 MG TAB PO SCH (08:05)
[2021-04-07] MEDS: ASPIRIN 81 MG ECTAB PO SCH (08:05)
[2021-04-07 08:17] VITALS: BP 127/72; TEMP 97.9; O2SAT 95
[2021-04-07 08:29] LABS: Hematocrit (blood only) 27.9 % (42-52); Hemoglobin 8.6 g/dL (14.0-18.0); Mean Corpuscular Hemoglobin 24.6 pg (25-34); Mean Corpuscular Hgb Conc 30.8 g/dL (32-36); Mean Corpuscular Volume 79.7 fL (80-100); Mean Platelet Volume 9.1 fL (7.4-10.4); Platelet Count 491 K/uL (130-400); RDW Coefficient of Variation 16.2 % (11.5-14.5); RDW Standard Deviation 46.8 fL (36.4-46.3); White Blood Count 9.54 K/uL (4.8-10.8)
--- NOTE | 2021-04-07 08:52 | Hospitalist Progress Note ---
Date of Service April 07, 2021 Assessment & Plan Admission and Anticipated Discharge Date Admission Date: March 26, 2021 Results & Data Results & Data ([facility]) Vital Signs (Past 12 Hours) Vital Signs Temp Pulse Pulse Resp BP Pulse Ox 04/07/21 08:14 36.6 C 71 18 127/72 95 04/06/21 22:13 36.8 C 78 16 127/69 96 04/06/21 21:16 90 129/70 PG Care Time/CCT Total # of Minutes Spent Total Time Spent with Patient: Total time spent is greater than 50% in coordination of care (as documented) at patient's floor/unit and/or counseling patient: Coding
--- NOTE | 2021-04-07 09:24 | Discharge Summary ---
Date of Service April 07, 2021 Admission HPI Per Admitting Provider Patient was discharged home on March 24 after having removal of arterial graft from his leg in preparation for BKA. Patient has osteomyelitis due to diabetic foot infection and previously had cultures with VRE and Pseudomonas. His Pseudomonas was previously intermittently sensitive to ciprofloxacin. The patient was on cefepime while in the hospital wanted to go home. We cannot achieve multidosing of cefepime at home with outpatient infusion therapy subsequently the patient went home with daptomycin intravenously and ciprofloxacin orally in hopes we can bridge him until we got to BKA which was scheduled for the end of March. Subsequently the wound nurse called the patient's wound is progressively gotten worse with expansion of his eschar and he was readmitted for to venous antibiotics and repeat orthopedic evaluation to see if we can move his surgery Admission Exam Per Admitting Provider The patient appeared well nourished and normally developed. Vital signs as documented. Head exam is normocephalic atraumatic Neck is without JVD, thyromegaly, or carotid bruits. Lungs are clear to auscultation, no focal loss of breath sounds Cardiac exam, Rhythm is regular systolic ejection murmur Abdominal exam reveals normal bowel sounds, soft non tender, no masses Distal extremity with wounds from surgery however there is a large necrotic heel ulceration which appears to be worsened than previous Neurologic exam is alert and oriented, no focal loss of strength or sensation Skin is without bruises or rashes Psychologically is without concerns for anxiety or depression Principal Diagnosis Osteomyelitis R foot Discharge Exam gen - NAD, lying comfortably in bed, no acute distress mouth - MMM, no thrush neck - no JVD heart - RRR, s1 s2, 1-2/6 POLO LSB lungs - CTA b/l abd - soft NT ND BS+ ext - right leg - wound vac in place medial aspect of mid-ghotra --looks good, no surrounding erythema. intact. Right foot dressing c/d/i. Necrotic/black eschar/dry gangrene 5th toe and entire heel. There is a large open ulceration on R heel but odor continues to improve vascular - pulses right foot <1+ at best, cap refill 3 sec; pulses left foot 2+, cap refill < 2 sec psych - a/o x 3 Discharge Data Allergies Allergy/AdvReac Type Severity Reaction Status Date / Time No Known Allergies Allergy Unknown Verified 03/22/21 08:16 Consultations 03/27/21 07:18 Consult Orthopedic Surgery Routine 04/02/21 11:41 Consult Infectious Diseases Routine Ordered Studies KUB X-Ray 04/01/21 16:34 XR KUB/Abdomen 1 view CLINICAL HISTORY: ?fecal impaction? COMPARISON STUDY: September 02, 2019 FINDINGS: There are multiple nondilated gas and stool-filled loops of bowel are seen throughout the abdomen. Moderate amount of stool is seen within left hemicolon. Large amount of stool is seen within pelvic region. Surgical sharri are seen projecting to the left hemiabdomen. Vascular stent is seen within the anatomical region of the lower abdominal aorta and iliac arteries. Degenerative changes of the bilateral hip joints and lumbar spine are seen. IMPRESSION: 1. Moderate amount of stool within left hemiabdomen. Large amount of stool within pelvic region might represent fecal impaction. No bowel loop dilatation is seen. 2. Additional findings as detailed above. ACT 112: Negative or not required by law. The above report was generated using voice recognition software. It may contain grammatical, syntax or spelling errors. Electronically signed by: Angelic Flores DO 04/01/2021 7:46 PM Hospital Course (1) Chronic osteomyelitis of right foot: right foot. previous cultures -- VRE and pseudomonas. [facility] telehealth consult completed -- advised d/c of dapto & cefepime -- change to IV zosyn 4.5gm q8h until right BKA is performed. ultimately needs BKA of right leg as the osteomyelitis has not cleared with conservative Rx due to severe PAD. 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 Ideally the right ghotra wound with wound vac in place needs to heal before BKA is done. If this wound isn't fully healed then this could compromise the BKA flap as the wound is quite close to where the BKA would be performed. Plan - Spoke with orthopedics, Dr Wei. * Discussed his draining wound on right heel/achilles region. He advised a 3- part liquid to soak foot in twice daily (1/3 saline, 1/3 betadine, and 1/3 hydrogen peroxide). This may help keep bacterial load in the gangrenous heel down. * PICC line placed. Rx for Zosyn given to CM. * Weekly CBC, CMP * --> Extended time spent coordinating with pharmacy/case management to arrange for IV abx at discharge. To follow up with Orthopedics once further healed to obtain better outcome for possible BKA vs having to do an AKA given flap close to location of interest Blood sugars up into the 400s 2 days prior to d/c as patient off his pump (type I DM) --> transitioned back to home pump and adjustments made. Improved prior to d/c and assistant health educator followed up day after d/c and blood sugars well controlled (2) Infected prosthetic vascular graft: s/p removal 03/23 (right leg graft). cont wound vac over ghotra wound on RLE. cont IV abx as above (3) COPD (chronic obstructive pulmonary disease): stable no flare (4) Aortic stenosis: History of aortic stenosis with porcine valve replacement mild systolic murmur on exam only (5) CAD (coronary artery disease): Cont atorvastatin, metoprolol, chlorthalidone resumed plavix cont asa (6) Hypothyroidism: Cont Synthroid therapy TSH 0.069 this month repeat as outpatient (7) Diabetes type 1, controlled: Patient on insulin pump at home. most recent a1c 7.3% in January 2021 pharmacy providing glycemic management cont basal-bolus SC regimen labile BSGs throughout this stay but reasonable control until 2 days prior to d/c. Switched back to home pump. Adjustments made to increased basal and was given 10u which pump didn't recognize and he went low. Adjusted back to setting prior to d/c and sugars remained controlled. Pharmacy and assistant health educator facilitated adjustments and assistant health educator calling patient day after d/c for close monitoring and rec f/u with Endocrinology. Follow up day after discharge with sugars still well controlled (8) Peripheral arterial disease: cont DAPT cont statin see above (9) Hypertension: BP stable cont chlorthalidone (10) Hypokalemia: secondary to insulin/diuretic/infection replacement ordered -- 40meq given day of discharge but patient resumed his usual supplementation at d/c which was not ordered while inpatient (11) Anemia: Folate & Fe deficiency present - see below (12) Folate deficiency: Initiated and continued 1mg daily x 30 days (13) Iron deficiency: ferritin <20 give Venofer 300mg IV x 1 on 04/04 and repeat dose 7/26 Started oral supplementation today- cont at d/c (14) Constipation: resolved cont bowel maintenance (15) DVT prophylaxis: lovenox SQ Wound vac changed day of discharge, seen by Dr. Soto. Back on home insulin pump, bSGs improved Arranged for IV Zosyn at d/c and to have f/u with ortho for future BKA Total Time Total Time Spent Total Time Spent (In Minutes): 120 Discharge Plan Discharge Items Patient Disposition: Home - Home Health Services Reason For Visit: DIABETIC FOOT INFECTION Discharge Diagnosis: Diabetic Foot Infection, Osteomyelitis Goals: You have been hospitalized for an urgent problem which required surgery. During your stay at [facility], we have made an effort to correct the problem that brought you to the hospital while keeping you as comfortable as possible. Surgery and medications were used to bring your condition under control and your discharge instructions will include directions for any medications you should take after leaving the hospital. Please make sure to follow the advice of your surgeon regarding follow up with the surgeon and with your primary care provider. Activity: As commented below Non-emergency contact: Primary Care Provider and Surgeon Call non-emergency contact if: you have any medication questions, your symptoms worsen and your pain is not controlled Follow-up/Referrals: ShobhaDelores CRNP, CDE [Nurse Practitioner] - 04/13/21 2:30 pm Enio Richards III, MD [Primary Care Provider] - 04/13/21 11:30 am Xander Soto MD [Surgeon] - 04/23/21 9:30 am Diet: Carb Count or DM1 and Heart Healthy Addtl Attending Provider Instructions: Keep dressings on right foot at all times, change as needed. You may soak the heal in a three equal part mixture of peroxide, betadine, and saline twice a day to keep area clean to the heal. Elevation as needed for pain/swelling Continue wound vac and dressing changes as per Dr. Eason and wound clinic Follow up with Dr. Soto on 04/23/21 at 9:30 a.m. for wound check and discussion of surgery. Addtl Curriculum Advisory Teacher Provider Instructions: You have been hospitalized for diabetic foot infection. Your vascular graft was found to be infected and removed. Orthopedics was consulted and plans for below the knee amputation but wanted the wound to have more healing to prevent an above the knee amputation. Your cultures showed bacteria called pseudomonas and you have been on Zosyn for IV antibiotics which are being continued at discharge as well as a wound vac wh ich was changed this morning. Your blood sugars have been elevated while in the hospital and you are now back on your home pump. Pharmacy helped to manage sugars and have been in contact with assistant health educator to see what a good regimen for you at discharge would be. Your basal rate has been increased. If you develop any low readings this may need to be decreased. The assistant health educator will call you tomorrow to monitor the sugars and make recommendations on adjustments as needed. You should follow up with Endocrinology as well to monitor. You have been started on iron supplementation twice daily to help with your hemoglobin. This can cause diarrhea and if this occurs, you may want to utilize over the counter miralax or colace to help relieve this. You will have follow up with Dr Soto in 2 weeks to monitor your progress and discuss surgery. Home health and home IV antibiotics were arranged. Please follow up with your PCP in the next week to monitor your progress. Please return to the emergency department with any fever, chills, chest pain, shortness of breath, increased redness/swelling, or for any other symptoms that are concerning for you. It has been a pleasure being a part of the medical team providing for you while you have been in the hospital. Take care! Pending Studies at Discharge: No Stand-Alone Forms: My [facility], Opioid Pain Management Medications and DC Order Prescriptions: New Zosyn in dextrose (iso-osm) 4.5 gram/100 mL piggyback 4.5 g IV Q8H Qty: 1200 RF: 2 folic acid 1 mg Tablet 1 mg PO QAM Qty: 30 RF: 0 ferrous sulfate 325 mg (65 mg iron) Tablet,Delayed Release (Dr/Ec) 325 mg PO BID Qty: 60 RF: 0 Continued Santyl 250 unit/gram ointment 1 applic topical DAILY 30 Days Qty: 30 RF: 2 gentamicin 0.1 % ointment 1 applic topical ONCE 42 Days Qty: 30 RF: 1 pantoprazole [Protonix] 40 mg tablet,delayed release (DR/EC) 40 mg PO QAM Qty: 30 RF: 5 atorvastatin [Lipitor] 80 mg tablet 80 mg PO HS Qty: 90 RF: 3 insulin aspart U-100 [Novolog U-100 Insulin aspart] 100 unit/mL solution 60 unit SQ UD Qty: 20 RF: 5 acetaminophen [Tylenol Extra Strength] 500 mg tablet 1,000 mg PO Q6 PRN (Reason: Pain) Qty: 100 RF: 5 aspirin 81 mg tablet,delayed release (DR/EC) 81 mg PO QAM Qty: 30 RF: 5 calcitriol [Rocaltrol] 0.25 mcg capsule 0.25 mcg PO QAM Qty: 30 RF: 5 chlorthalidone 25 mg tablet 25 mg PO QAM Qty: 30 RF: 5 clopidogrel [Plavix] 75 mg tablet 75 mg PO QAM Qty: 30 RF: 5 levothyroxine 175 mcg tablet 175 mcg PO QAM Qty: 30 RF: 5 oxycodone 5 mg tablet 5 mg PO TID PRN (Reason: Pain) Qty: 30 RF: 0 metoprolol tartrate 25 mg tablet 12.5 mg PO BID Qty: 90 RF: 3 potassium chloride 20 mEq tablet extended release 20 meq PO BID Qty: 60 RF: 5 Discontinued daptomycin 500 mg recon soln 500 mg IV DAILY Qty: 14 RF: 0 ciprofloxacin HCl [Cipro] 500 mg tablet 500 mg PO BID Qty: 30 RF: 0 Discharge Orders: Discharge Order (Routine); Ordered 04/07/21 Ordered By: Rosey Morse/Other Patient Handouts: Peripherally Inserted Central ..., Negative Pressure Wound Therapy Admission Data Admit Date/Time: 03/26/21 21:16 Attending Provider: Ron Mares Admit Provider: Ron Mares Primary Care Provider: Enio Richards III Other Providers: Xander Soto ; [place] ; [facility] ; Helio,Fax ; Oliver Richardson ; Meme Grider ; Kris Wei I. ; French Langford II ; Hayley Key ; Tyree Laguerre Other Interventions: Discharge Summary Assessment (RN) Last Done: 04/07/21 10:46 Coding Level of Care Code D/C DAY MANAGEMENT >30 MINS Diagnoses Chronic osteomyelitis of right foot M86.671 Infected prosthetic vascular graft T82.7XXA COPD (chronic obstructive pulmonary disease) J44.9 Aortic stenosis I35.0 CAD (coronary artery disease) I25.10 Associated angina: without angina Coronary Disease-Associated Artery/Lesion type: [place] artery [place] vs. transplanted heart: [place] heart Hypothyroidism E03.9 Hypothyroidism type: unspecified Diabetes type 1, controlled E10.9 Peripheral arterial disease I73.9 Hypertension I10 Hypertension type: unspecified Hypokalemia E87.6 Anemia D64.9 Folate deficiency E53.8 Iron deficiency E61.1 Constipation K59.00 DVT prophylaxis Z29.9
--- NOTE | 2021-04-07 09:36 | Orthopedic Progress Note ---
Date of Service April 07, 2021 Assessment & Plan (1) Infected prosthetic vascular graft: (2) Osteomyelitis due to type 1 diabetes mellitus: Plan: Plan at this time is to continue treatment with the wound VAC. Continue antibiotics and wound care. Option 1 is to healed the right leg wound and then proceed with a below-knee amputation to attempt to preserve more function. Option #2 is to proceed with an above-knee amputation at any time. Mr. Chowdhury appears to favor option #1. We will arrange follow-up with him in my office in 2 weeks. He will need outpatient wound care for wound VAC changes either at his home or via the wound clinic. Admission and Anticipated Discharge Date Admission Date: March 26, 2021 Subjective Mr. Chowdhury has been readmitted to the hospital. Dr. Eason has removed the distal portion of his bypass graft below the knee. Culture was positive for Pseudomonas. He remains on antibiotics. His right foot remains infected. He is getting wound VAC changes. Physical Exam Physical Exam: Wound VAC is removed. The wound is 1-1/2 to 2 cm deep and about 10 cm long with good granulating tissue and no drainage and no surrounding maceration. The wound care nurse She will reapply a new wound VAC today. Results & Data ([facility]) Vital Signs (Past 12 Hours) Vital Signs Temp Pulse Pulse Resp BP Pulse Ox 04/07/21 08:14 36.6 C 71 18 127/72 95 04/06/21 22:13 36.8 C 78 16 127/69 96
[2021-04-07 10:03] LABS: Creatinine Clr Calc Pharmacy 109.2 ml/min; Est GFR (African American) 118.5 ml/min; Est GFR (Non-African American) 102.3 ml/min; Potassium 3.4 mmol/L (3.5-5.1)
[2021-04-07 10:53] VITALS: PULSE 78
[2021-04-07] MEDS ORDERED: POTASSIUM CHLORIDE CRTAB 20 MEQ TABCR PO STA (11:13)
[2021-04-07] MEDS: NovoLOG INSULIN PUMP SCH (12:40)
[2021-04-07] MEDS ORDERED: FERROUS SULFATE 325 MG TAB PO SCH (21:00)
== END 2021-04-07 13:45 | disposition home health service (06) | DRG 638 ==
LOC: SUATTDRO 21:16 → 3E 21:16
DX: E53.8 Deficiency of other specified B group vitamins; M19.90 Unspecified osteoarthritis, unspecified site; E10.69 Type 1 diabetes mellitus with other specified complication; I12.9 Hypertensive chronic kidney disease with stage 1 through stage 4 chronic kidney disease, or unspecified chronic kidney disease; E10.621 Type 1 diabetes mellitus with foot ulcer; E10.51 Type 1 diabetes mellitus with diabetic peripheral angiopathy without gangrene; E10.21 Type 1 diabetes mellitus with diabetic nephropathy; I35.0 Nonrheumatic aortic (valve) stenosis; N18.31 Chronic kidney disease, stage 3a; E03.9 Hypothyroidism, unspecified; E87.6 Hypokalemia; Z96.41 Presence of insulin pump (external) (internal); K59.00 Constipation, unspecified; M81.0 Age-related osteoporosis without current pathological fracture; L97.319 Non-pressure chronic ulcer of right ankle with unspecified severity; D50.9 Iron deficiency anemia, unspecified; Z83.3 Family history of diabetes mellitus; Z95.1 Presence of aortocoronary bypass graft; J44.9 Chronic obstructive pulmonary disease, unspecified; I25.10 Atherosclerotic heart disease of native coronary artery without angina pectoris; K21.9 Gastro-esophageal reflux disease without esophagitis; M86.671 Other chronic osteomyelitis, right ankle and foot; Z87.891 Personal history of nicotine dependence

== ENCOUNTER 2021-05-04 07:27 | Inpatient (IN) ==
[2021-05-04] MEDS ORDERED: fentaNYL citrate 100 MCG/2 ML VIAL IV STA (07:58)
[2021-05-04] MEDS ORDERED: LIDOCAINE 2% JELLY 5 ML TUBE EXT ONE (07:58)
--- NOTE | 2021-05-04 08:06 | Emergency Department Note ---
Impression & Plan Acute proctitis, Constipation ED Provider Note CHIEF COMPLAINT: Rectal pain, constipation HISTORY OF PRESENTING ILLNESS: This is a 66-year-old male who presents to the emergency department via EMS with complaint of rectal pain and constipation. Patient states that he has been constipated for the past 2 weeks and has been using Dulcolax and senna without much relief. This morning he states he took some milk of magnesia and did have a small bowel movement, but states that he started to have increased rectal pain and pressure after this bowel movement. He states he has been straining a lot to go to the bathroom and also notes a history of hemorrhoids. He denies any blood in the stool or bleeding from his rectum. He has some lower abdominal pain but states it is mostly in his rectum. He rates the pain 2/10 at rest, but states when he is trying to move his bowels or wipes the area that the pain is 10/10. He has not tried anything for pain at home. He does know he was prescribed oxycodone for pain but he has not been taking this. Patient reports that he was admitted last month related to his right leg infection. He has osteomyelitis due to a diabetic foot infection and is going through treatment with the plan for a below the knee amputation after this clears up. He does have a PICC line and is receiving IV antibiotics through this. He also has a wound VAC in the right leg. He denies any fevers or chills. He states that he was constipated while he was in the hospital, but they gave him medication and he was able to move his bowels prior to going home. He states he has been feeling constipated persistently for the past few weeks. He states he is worried about an impaction or bowel blockage. REVIEW OF SYSTEMS: A complete 10 point review of systems was reviewed with the patient with pertinent positives and negatives as per history of present illness. All else were negative. PAST MEDICAL HISTORY: Type 1 diabetes mellitus, hypertension, dyslipidemia, h ypothyroidism, CAD, chronic renal disease stage III, peripheral arterial disease, COPD, osteomyelitis, history of aortic valve replacement SOCIAL HISTORY: Lives at home, he is a former smoker ALLERGIES: No known allergies PHYSICAL EXAM: CONSTITUTIONAL: Pleasant and cooperative. Nontoxic-appearing and in no acute distress. Well appearing and well nourished. HEENT: Normocephalic, atraumatic. NECK: Supple, full active range of motion without discomfort. RESPIRATORY: Clear to auscultation bilaterally with no wheezing, crackles, rhonchi or stridor. Equal expansion bilaterally. CARDIOVASCULAR: Regular rate and rhythm with no murmurs, rubs or gallops. Normal peripheral perfusion. No edema. GASTROINTESTINAL: Mild tenderness in the left lower abdomen, no rebound tenderness or guarding. Abdomen is otherwise nontender, soft and nondistended. No palpable masses or HSM. Bowel sounds present in all quadrants. No CVA tenderness bilaterally. DIGITAL RECTAL EXAM: No visible external hemorrhoids on inspection. Skin is red around the buttock area and does not josie, concerning for developing pressure ulcers. The external visualization of the rectal wall appears to be swollen and inflamed. Attempt at digital exam was exquisitely painful for the patient and he did not tolerate this well, I was unable to advance for full exam. There was no active bleeding. A nurse leasing consultant was present for the entirety of the exam. MUSCULOSKELETAL: Full range of motion of all joints without discomfort. INTEGUMENTARY: No rash or other significant dermatologic conditions noted. NEUROLOGIC: Alert and oriented X 4 with normal affect. Normal strength and sensation in all 4 extremities. Normal speech. Normal gait observed. ED COURSE AND MEDICAL DECISION MAKING: CC: Patient presenting with complaint of rectal pain and constipation DIFFERENTIAL DIAGNOSIS: Includes, but not limited to constipation, fecal impaction, diverticulitis, infectious colitis, hemorrhoids, small bowel obstruction, intra-abdominal infection, mesenteric ischemia, UTI, among others. INTERPRETATION OF LABS: Leukocytosis with left shift, mild anemia, slightly elevated platelets, no significant electrolyte abnormalities, normal renal function, normal liver enzymes mildly elevated alk phos. Lactate within normal limits. UA negative. SARS-CoV-2 PCR test negative. MEDICATION RECONCILIATION: I attest that I have personally reviewed the patient's current medication list. INITIAL VITAL SIGNS REVIEW: I reviewed the patient's initial vital signs and interpret them as follows: T: Afebrile; BP: Normotensive; HR: Within normal limits; RR: Within normal limits; Pulse Ox: Within normal limits on room air. MDM SUMMARY: Patient was evaluated at bedside, history and physical exam performed. Patient is alert and oriented, in no acute distress, resting calmly in stretcher. He is afebrile and nontoxic-appearing. Mild tenderness to palpation in the left lower abdomen, no acute abdomen. Extreme tenderness with palpation inside the rectum, the patient did not tolerate digital rectal exam. Cardiac monitoring: An order was placed for continuous cardiac monitoring. The monitor shows a rate of 87 bpm with normal sinus rhythm. Orders were placed for labs, UA, IV fentanyl for pain, lidocaine jelly for topi pablo analgesic rectum, CT abdomen/pelvis with IV contrast to evaluate for abdominal and rectal pain. Patient discussed with Dr. Mccormack, who agrees with my assessment, plan, and disposition. Labs and imaging reviewed, labs notable for leukocytosis, otherwise unremarkable. Lactate normal. No UTI. CT imaging notable for rectal wall thickening and perirectal fat stranding consistent with proctitis as well as moderate stool within the colon and rectum. No other significant findings. Patient reassessed multiple times throughout ED stay, he has remained hemodynamically stable and afebrile, and notes that his pain is improved after the fentanyl and lidocaine jelly. Given that the patient is diabetic and is already on IV Zosyn for management of his leg infection, I felt that the patient warranted admission for management of his constipation and proctitis. I spoke on the phone with Dr. Sharp, hospitalist, who agrees to evaluate the patient for the admission. The patient was updated on all results and plan for admission, all questions were answered to the best of my ability and he was agreeable to this plan. The patient was stable at time of admission. The chart was completed utilizing [email or web address] Speech voice recognition software. Grammatical errors, random word insertions, pronoun errors, and incomplete sentences are an occasional consequence of this system due to software limitations, ambient noise, and hardware issues. Any formal questions or concerns about the content, text, or information contained within the body of this dictation should be directly addressed to the nurse practitioner for clarification. Past Med/Surg History Medical History (Updated 05/04/21 @ 14:41 by KAREEN Carolina) Aortic stenosis s/p porcine valve replacement (2016) with CABG x 1 CAD (coronary artery disease) s/p CABG x 1 (2016) Chronic renal disease, stage 3, moderately decreased glomerular filtration rate (GFR) between 30-59 mL/min/1.[address] Lerner CKD (chronic kidney disease) stage 2, GFR 60-89 ml/min Diabetes mellitus type 1 + Insulin pump Diabetic nephropathy associated with type 1 diabetes mellitus Dyslipidemia GERD (gastroesophageal reflux disease) Hypertension Hypothyroidism Insulin pump in place Osteoarthritis Osteoporosis PAD (peripheral artery disease) Proliferative diabetic retinopathy associated with type 1 diabetes mellitus PVD (peripheral vascular disease) s/p B/L iliac artery stents (2014), R common/external iliac (2017), R common femoral endarterectomy (11/2018) with bovine patch. Left femoral to PT composite bypass graft (06/2020) VRE infection (vancomycin resistant enterococcus), with multi-drug resistance Surgical History H/O cataract extraction R/L H/O endarterectomy R common femoral (11/2018) H/O vascular surgery Right Femoral to Posterior tibial Prosthetic Bypass Graft(Right) History of ankle surgery LEFT ANKLE +HARDWARE REMOVED History of aortic valve replacement 2016 ([facility] [place]) History of arterial bypass of lower extremity Left femoral to PT composite bypass graft (06/2020) History of cardiac cath x2, most recent 2016 > no stents (subsequent CABG with AVR in 2015) History of carpal tunnel release R/L History of colonoscopy History of coronary artery bypass graft CABG x1 + AVR (2015) History of esophagogastroduodenoscopy (EGD) History of myringotomy History of open reduction and internal fixation (ORIF) procedure LLE () History of skin graft Split Thickness Skin Graft of Left Lateral Ankle (11/18/20): LMA#5, atraumatic x1 at [facility] History of tonsillectomy History of tooth extraction History of umbilical hernia repair Hx of surgical procedure Left Leg Wound Debridement and Irrigation S/P femoropopliteal bypass surgery Right fem-pop bypass graft (01/19/21): Grade 2 view, MAC 3.0, ETT 8.0 at [facility] S/P insertion of iliac artery stent B/L iliac stent placement (2014) 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 Family History Brother Family history of diabetes mellitus Sister Family history of diabetes mellitus Mother Family history of diabetes mellitus Grandmother (Maternal) Family history of diabetes mellitus Uncle Family hx of colon cancer Colorectal cancer Father Family history of esophageal cancer Sister Family history of diabetes mellitus Other No family history of adverse response to anesthesia Denies family history of Ovarian cancer Prostate cancer Myocardial infarction Breast cancer Social History Smoking Status: Former smoker Tobacco Type: Cigarettes and Smokeless Tobacco (Dip or Chew) Cigarettes Per Day: Quit 15 years ago; Second Hand Exposure: No; Hx Alcohol Use: Yes Alcohol type: beer Alcohol Intake Frequency: Monthly or Less Hx Substance Use: No Preferred Language: Icelandic Communication Ability: Effective Visual Impairment: No Limitations Hearing Ability: Normal [employer]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 ([id number], roughly) caffeine: Yes (coffee, rarely ) during the past year weight has: remained stable Dental Care, Regularly: No Physical Activity Frequency: 1-2 Times per Week Seatbelt Use: always Sunscreen Use: No Gender Identity: Male Assistive Devices: Wheelchair Allergies Allergies Allergy/AdvReac Type Severity Reaction Status Date / Time No Known Allergies Allergy Unknown Verified 05/04/21 09:15 Home Meds Home Medications Medication Instructions Recorded Confirmed aspirin 81 mg tablet,delayed 81 mg PO QAM 05/04/21 05/04/21 release (Aspirin Low Dose) levothyroxine 175 mcg tablet 175 mcg PO DAILYBB 05/04/21 05/04/21 (Synthroid) piperacillin-tazobactam 4.5 4.5 g IV DAILY@2230 05/04/21 05/04/21 gram/100 mL dextrose(iso-osm) IV piggyback (Zosyn) Previous Rx's Medication Instructions Recorded pantoprazole 40 mg tablet,delayed 40 mg PO QAM #30 tab 04/27/20 release (Protonix) atorvastatin 80 mg tablet (Lipitor) 80 mg PO HS #90 tab 11/25/20 insulin aspart U-100 100 unit/mL 60 unit SQ UD #20 ml 01/14/21 subcutaneous solution (Novolog U-100 Insulin aspart) chlorthalidone 25 mg tablet 25 mg PO QAM #30 tab 01/28/21 clopidogrel 75 mg tablet (Plavix) 75 mg PO QAM #30 tab 01/28/21 oxycodone 5 mg tablet 5 mg PO TID PRN #30 tab 01/28/21 metoprolol tartrate 25 mg tablet 12.5 mg PO BID #90 tab 02/09/21 potassium chloride 20 mEq 20 meq PO BID #60 tab 02/22/21 tablet,extended release collagenase clostridium histo. 250 1 applic TOPICAL DAILY 30 Days #30 03/16/21 unit/gram topical ointment (Santyl) g ferrous sulfate 325 mg (65 mg 325 mg PO BID #60 tab 04/07/21 iron) tablet,delayed release folic acid 1 mg tablet 1 mg PO QAM #30 tab 04/07/21 calcitriol 0.25 mcg capsule 0.25 mcg PO QAM #30 cap 04/27/21 (Rocaltrol) Results & Data (ED) Vital Signs Vital Signs - 24 hr 05/04/21 07:37 05/04/21 07:58 05/04/21 08:47 Temperature 37.5 C Temperature Source Oral Pulse Rate 85 Pulse Rate [Right Finger] 84 Pulse Rhythm Regular Pulse Rhythm [Right Finger] Pulse Strength Normal Pulse Strength [Right Finger] Respiratory Rate 20 20 Respiratory Effort / Characteristics Non-Labored Spontaneous Non-Labored Spontaneous Respiratory Depth Normal Normal Respiratory Pattern Regular Regular Blood Pressure 128/72 Blood Pressure [Left Arm] 144/76 H Blood Pressure Mean 90 Blood Pressure Mean [Left Arm] 98 Blood Pressure Position Sitting Blood Pressure Position [Left Arm] Sitting Pulse Oximetry 97 98 98 Oxygen Delivery Method Room Air Room Air Room Air Sepsis Recent Fever Within 48 Hours No Sepsis New/Unexplained Change in Mental Status No Sepsis Action Taken by Nursing No Action Required 05/04/21 09:00 05/04/21 10:00 05/04/21 11:01 Temperature Temperature Source Pulse Rate Pulse Rate [Right Finger] 78 72 80 Pulse Rhythm Pulse Rhythm [Right Finger] Regular Regular Regular Pulse Strength Pulse Strength [Right Finger] Normal Normal Normal Respiratory Rate 20 20 20 Respiratory Effort / Characteristics Non-Labored Spontaneous Non-Labored Spontaneous Respiratory Depth Normal Normal Respiratory Pattern Regular Regular Blood Pressure Blood Pressure [Left Arm] 116/63 127/63 151/56 H Blood Pressure Mean Blood Pressure Mean [Left Arm] 80 84 87 Blood Pressure Position Blood Pressure Position [Left Arm] Sitting Sitting Pulse Oximetry 98 97 97 Oxygen Delivery Method Room Air Room Air Room Air Sepsis Recent Fever Within 48 Hours Sepsis New/Unexplained Change in Mental Status Sepsis Action Taken by Nursing 05/04/21 13:00 Temperature Temperature Source Pulse Rate Pulse Rate [Right Finger] 83 Pulse Rhythm Pulse Rhythm [Right Finger] Regular Pulse Strength Pulse Strength [Right Finger] Normal Respiratory Rate 20 Respiratory Effort / Characteristics Non-Labored Spontaneous Respiratory Depth Normal Respiratory Pattern Regular Blood Pressure Blood Pressure [Left Arm] 158/68 H Blood Pressure Mean Blood Pressure Mean [Left Arm] 98 Blood Pressure Position Blood Pressure Position [Left Arm] Sitting Pulse Oximetry 98 Oxygen Delivery Method Room Air Sepsis Recent Fever Within 48 Hours Sepsis New/Unexplained Change in Mental Status Sepsis Action Taken by Nursing Laboratory Data Result diagrams: 05/04/21 08:11 05/04/21 08:11 Lab Results 05/04/21 05/04/21 05/04/21 Range/Units 08:11 08:11 08:30 WBC 17.65 H (4.8-10.8) K/uL RBC 4.59 L (4.7-6.1) M/uL Hgb 11.6 L (14.0-18.0) g/dL Hct 36.7 L (42-52) % MCV 80.0 (80-100) fL MCH 25.3 (25-34) pg MCHC 31.6 L (32-36) g/dL RDW Std Deviation 54.3 H (36.4-46.3) fL RDW Coeff of Chan 18.9 H (11.5-14.5) % Plt Count 437 H (130-400) K/uL MPV 9.1 (7.4-10.4) fL Immature Gran % (Auto) 0.4 % Neut % (Auto) 81.8 % Lymph % (Auto) 9.1 % Mcminn % (Auto) 8.0 % Eos % (Auto) 0.5 % Baso % (Auto) 0.2 % Neut # (Auto) 14.44 H (1.4-6.5) K/uL Lymph # (Auto) 1.60 (1.2-3.4) K/uL Mcminn # (Auto) 1.41 H (0.11-0.59) K/uL Eos # (Auto) 0.09 (0-0.5) K/uL Baso # (Auto) 0.04 (0-0.2) K/uL Immature Gran # (Auto) 0.07 H (0.00-0.02) K/uL Sodium 135 L (136-145) mmol/L Potassium 3.5 (3.5-5.1) mmol/L Chloride 98 (98-107) mmol/L Carbon Dioxide 27 (21-32) mmol/L Anion Gap 10.0 (3-11) BUN 13 (7-18) mg/dl Creatinine 0.94 (0.6-1.4) mg/dl Est Cr Clr Drug Dosing 84.3 ml/min Est GFR ( Amer) 98.9 ml/min Est GFR (Non-Af Amer) 85.3 ml/min BUN/Creatinine Ratio 14.0 (10-20) Glucose 144 H (70-99) mg/dl POC Glucose (70-99) mg/dl Lactate 1.0 (0.4-2.0) mmol/L Calcium 9.4 (8.5-10.1) mg/dl Total Bilirubin 0.4 (0.2-1) mg/dl AST 16 (15-37) U/L ALT 14 (12-78) U/L Alkaline Phosphatase 127 H (45-117) U/L Total Protein 8.8 H (6.4-8.2) gm/dl Albumin 2.5 L (3.4-5.0) gm/dl Globulin 6.3 H (2.5-4.0) gm/dl Albumin/Globulin Ratio 0.4 L (0.9-2) Urine Color Urine Appearance (Clear) Urine pH (4.5-7.5) Ur Specific [place] (1.000-1.030) Urine Protein (Negative) Urine Glucose (UA) (Negative) Urine Ketones (Negative) Urine Blood (Negative) Urine Nitrite (Negative) Urine Bilirubin (Negative) Urine Urobilinogen (Negative) Ur Leukocyte Esterase (Negative) COVID-19 Eval Order SARS-CoV-2 (PCR) (Negative) 05/04/21 05/04/21 05/04/21 Range/Units 08:36 09:30 11:07 WBC (4.8-10.8) K/uL RBC (4.7-6.1) M/uL Hgb (14.0-18.0) g/dL Hct (42-52) % MCV (80-100) fL MCH (25-34) pg MCHC (32-36) g/dL RDW Std Deviation (36.4-46.3) fL RDW Coeff of Chan (11.5-14.5) % Plt Count (130-400) K/uL MPV (7.4-10.4) fL Immature Gran % (Auto) % Neut % (Auto) % Lymph % (Auto) % Mcminn % (Auto) % Eos % (Auto) % Baso % (Auto) % Neut # (Auto) (1.4-6.5) K/uL Lymph # (Auto) (1.2-3.4) K/uL Mcminn # (Auto) (0.11-0.59) K/uL Eos # (Auto) (0-0.5) K/uL Baso # (Auto) (0-0.2) K/uL Immature Gran # (Auto) (0.00-0.02) K/uL Sodium (136-145) mmol/L Potassium (3.5-5.1) mmol/L Chloride (98-107) mmol/L Carbon Dioxide (21-32) mmol/L Anion Gap (3-11) BUN (7-18) mg/dl Creatinine (0.6-1.4) mg/dl Est Cr Clr Drug Dosing ml/min Est GFR ( Amer) ml/min Est GFR (Non-Af Amer) ml/min BUN/Creatinine Ratio (10-20) Glucose (70-99) mg/dl POC Glucose 144 H (70-99) mg/dl Lactate (0.4-2.0) mmol/L Calcium (8.5-10.1) mg/dl Total Bilirubin (0.2-1) mg/dl AST (15-37) U/L ALT (12-78) U/L Alkaline Phosphatase (45-117) U/L Total Protein (6.4-8.2) gm/dl Albumin (3.4-5.0) gm/dl Globulin (2.5-4.0) gm/dl Albumin/Globulin Ratio (0.9-2) Urine Color Yellow Urine Appearance Clear (Clear) Urine pH 7.0 (4.5-7.5) Ur Specific [place] 1.022 (1.000-1.030) Urine Protein Negative (Negative) Urine Glucose (UA) Negative (Negative) Urine Ketones Negative (Negative) Urine Blood Negative (Negative) Urine Nitrite Negative (Negative) Urine Bilirubin Negative (Negative) Urine Urobilinogen Negative (Negative) Ur Leukocyte Esterase Negative (Negative) COVID-19 Eval Order Covid19 at [facility] SARS-CoV-2 (PCR) (Negative) 05/04/21 Range/Units 11:07 WBC (4.8-10.8) K/uL RBC (4.7-6.1) M/uL Hgb (14.0-18.0) g/dL Hct (42-52) % MCV (80-100) fL MCH (25-34) pg MCHC (32-36) g/dL RDW Std Deviation (36.4-46.3) fL RDW Coeff of Chan (11.5-14.5) % Plt Count (130-400) K/uL MPV (7.4-10.4) fL Immature Gran % (Auto) % Neut % (Auto) % Lymph % (Auto) % Mcminn % (Auto) % Eos % (Auto) % Baso % (Auto) % Neut # (Auto) (1.4-6.5) K/uL Lymph # (Auto) (1.2-3.4) K/uL Mcminn # (Auto) (0.11-0.59) K/uL Eos # (Auto) (0-0.5) K/uL Baso # (Auto) (0-0.2) K/uL Immature Gran # (Auto) (0.00-0.02) K/uL Sodium (136-145) mmol/L Potassium (3.5-5.1) mmol/L Chloride (98-107) mmol/L Carbon Dioxide (21-32) mmol/L Anion Gap (3-11) BUN (7-18) mg/dl Creatinine (0.6-1.4) mg/dl Est Cr Clr Drug Dosing ml/min Est GFR ( Amer) ml/min Est GFR (Non-Af Amer) ml/min BUN/Creatinine Ratio (10-20) Glucose (70-99) mg/dl POC Glucose (70-99) mg/dl Lactate (0.4-2.0) mmol/L Calcium (8.5-10.1) mg/dl Total Bilirubin (0.2-1) mg/dl AST (15-37) U/L ALT (12-78) U/L Alkaline Phosphatase (45-117) U/L Total Protein (6.4-8.2) gm/dl Albumin (3.4-5.0) gm/dl Globulin (2.5-4.0) gm/dl Albumin/Globulin Ratio (0.9-2) Urine Color Urine Appearance (Clear) Urine pH (4.5-7.5) Ur Specific [place] (1.000-1.030) Urine Protein (Negative) Urine Glucose (UA) (Negative) Urine Ketones (Negative) Urine Blood (Negative) Urine Nitrite (Negative) Urine Bilirubin (Negative) Urine Urobilinogen (Negative) Ur Leukocyte Esterase (Negative) COVID-19 Eval Order SARS-CoV-2 (PCR) NEGATIVE (Negative) Administered Medications Discontinued Medications Fentanyl Citrate (Fentanyl Citrate 100 Mcg/2 Ml Vial) 50 mcg IV NOW STA Stop: 05/04/21 07:59 Last Admin: 05/04/21 08:25 Dose: 50 mcg Documented by: [id number] Ioversol (Optiray 320 100ml) 94 ml IV ONCE ONE Stop: 05/04/21 09:22 Last Admin: 05/04/21 09:21 Dose: 94 ml Documented by: [id number] Lidocaine HCl (Lidocaine 2% Jelly 5 Ml Tube) 10 ml EXT NOW ONE Stop: 05/04/21 07:59 Last Admin: 05/04/21 08:46 Dose: 10 ml Documented by: [id number] Oxycodone HCl (Oxycodone Hcl Ir 5 Mg Tab (Immediate Release)) Confirm Administered Dose 5 mg .ROUTE .STK-MED ONE Stop: 05/04/21 12:46 Last Admin: 05/04/21 12:56 Dose: 5 mg Documented by: [id number] Imaging Data Radiologist's Impression: Abdomen/Pelvis CT 05/04/21 07:[address] WITH IV CONTRAST CT DOSE: 457.02 mGy.cm HISTORY: low abd and rectal pain, constipation TECHNIQUE: Multiaxial CT images of the abdomen and pelvis were performed following the use of intravenous contrast. A dose lowering technique was utilized adhering to the principles of ALARA. COMPARISON STUDY: Abdomen and pelvis CT 01/02/2020. FINDINGS: A few bibasilar linear densities consistent with subsegmental atelectasis. There is mild elevation of the right hemidiaphragm. No pneu moperitoneum. No pneumatosis. There are poststernotomy changes. Left-sided pectus excavatum deformity is again noted. No suspicious lytic or blastic osseous lesions. Postoperative changes noted within the right groin, unchanged. There is a single mildly enlarged right inguinal lymph node measuring 2.0 x 1.4 cm. The liver, spleen, gallbladder, pancreas are unremarkable. There are stable bilateral adrenal gland nodules with the largest on the right measuring 2.1 cm. These likely represent benign adenomas. The main portal vein is patent. Bilateral common iliac artery stents are noted. Moderate calcified plaque within the normal caliber abdominal aorta. No retroperitoneal lymphadenopathy. The ki dneys enhance normally. There are multiple bilateral renal calculi. No ureteral calculi. No hydronephrosis. The prostate gland is mildly enlarged. There is mild bladder wall thickening, unchanged. This may be secondary to chronic outlet obstruction. There is mild rectal wall thickening with perirectal edema. This favors a mild proctitis. Moderate stool seen within the colon and rectum. No evidence for bowel obstruction. Normal appendix. IMPRESSION: 1. Mild rectal wall thickening with associated perirectal fat stranding. This favors a proctitis. 2. Moderate stool within the colon and rectum. 3. Mild bladder wall thickening, unchanged. This may be due to chronic outlet obstruction from the enlarged prostate gland. 4. Bilateral nephrolithiasis. No ureteral stones. No hydronephrosis. 5. Normal appendix. 6. Stable bilateral adrenal gland nodules. 7. Additional findings as described above. ACT 112: Negative or not required by law. Electronically signed by: Otf Avila M.D. 05/04/2021 10:10 AM Discharge Plan Visit Data Chief Complaint: Constipation Stated Complaint: rectal pain, constipation ED Provider: Joselo Mccormack ED Midlevel Provider: Estephania Mcpherson Discharge Problem: Acute proctitis, Constipation Patient Disposition: Admitted As Inpatient Condition: Good Forms Stand Alone Forms: My [employer] Prescriptions Prescriptions: No Action Santyl 250 unit/gram ointment 1 applic topical DAILY 30 Days Qty: 30 RF: 2 pantoprazole [Protonix] 40 mg tablet,delayed release (DR/EC) 40 mg PO QAM Qty: 30 RF: 5 atorvastatin [Lipitor] 80 mg tablet 80 mg PO HS Qty: 90 RF: 3 insulin aspart U-100 [Novolog U-100 Insulin aspart] 100 unit/mL solution 60 unit SQ UD Qty: 20 RF: 5 chlorthalidone 25 mg tablet 25 mg PO QAM Qty: 30 RF: 5 clopidogrel [Plavix] 75 mg tablet 75 mg PO QAM Qty: 30 RF: 5 oxycodone 5 mg tablet 5 mg PO TID PRN (Reason: Pain) Qty: 30 RF: 0 metoprolol tartrate 25 mg tablet 12.5 mg PO BID Qty: 90 RF: 3 potassium chloride 20 mEq tablet extended release 20 meq PO BID Qty: 60 RF: 5 calcitriol [Rocaltrol] 0.25 mcg capsule 0.25 mcg PO QAM Qty: 30 RF: 5 folic acid 1 mg Tablet 1 mg PO QAM Qty: 30 RF: 0 ferrous sulfate 325 mg (65 mg iron) Tablet,Delayed Release (Dr/Ec) 325 mg PO BID Qty: 60 RF: 0 levothyroxine [Synthroid] 175 mcg tablet 175 mcg PO DAILYBB RF: 0 aspirin [Aspirin Low Dose] 81 mg tablet,delayed release (DR/EC) 81 mg PO QAM RF: 0 Zosyn in dextrose (iso-osm) 4.5 gram/100 mL piggyback 4.5 g IV DAILY@2230 RF: 0 Referrals Referrals: Enio Richards III, MD [Primary Care Provider] - Discharge Problem: Constipation Qualifiers: Constipation type: unspecified constipation type Qualified Code(s): K59.00 - Constipation, unspecified
[2021-05-04 08:22] LABS: Basophils # (auto) 0.04 K/uL (0-0.2); Basophils % (auto) 0.2 %; Eosinophils # (auto) 0.09 K/uL (0-0.5); Eosinophils % (auto) 0.5 %; Hematocrit (blood only) 36.7 % (42-52); Hemoglobin 11.6 g/dL (14.0-18.0); Immature Granulocytes # (auto) 0.07 K/uL (0.00-0.02); Immature Granulocytes % (auto) 0.4 %; Lymphocytes % (auto) 9.1 %; Mean Corpuscular Hemoglobin 25.3 pg (25-34); Mean Corpuscular Hgb Conc 31.6 g/dL (32-36); Mean Platelet Volume 9.1 fL (7.4-10.4); Monocytes # (auto) 1.41 K/uL (0.11-0.59); Neutrophils # (auto) 14.44 K/uL (1.4-6.5); Neutrophils % (auto) 81.8 %; Platelet Count 437 K/uL (130-400); RDW Coefficient of Variation 18.9 % (11.5-14.5); RDW Standard Deviation 54.3 fL (36.4-46.3); Red Blood Count 4.59 M/uL (4.7-6.1); White Blood Count 17.65 K/uL (4.8-10.8)
[2021-05-04 08:38] LABS: Albumin Level 2.5 gm/dl (3.4-5.0); Calcium 9.4 mg/dl (8.5-10.1); Creatinine Clr Calc Pharmacy 84.3 ml/min; Est GFR (African American) 98.9 ml/min; Est GFR (Non-African American) 85.3 ml/min; Potassium 3.5 mmol/L (3.5-5.1)
[2021-05-04 08:41] LABS: Albumin Globulin Ratio 0.4 (0.9-2); Bilirubin,Total 0.4 mg/dl (0.2-1); Globulin 6.3 gm/dl (2.5-4.0); Total Protein 8.8 gm/dl (6.4-8.2)
[2021-05-04] MEDS ORDERED: OPTIRAY 320 100ml IV ONE (09:21)
[2021-05-04 09:45] LABS: Appearance Urine Clear (Clear); Bilirubin Urine Negative (Negative); Blood Urine Negative (Negative); Color Urine Yellow; Glucose Urine UA Negative (Negative); Ketones Urine Negative (Negative); Leukocyte Esterase Urine Negative (Negative); Nitrite Urine Negative (Negative); Protein Urine Negative (Negative); Specific Gravity Urine 1.022 (1.000-1.030); Urobilinogen Urine Negative (Negative)
--- NOTE | 2021-05-04 10:12 | CT Scan Report ---
ABDOMEN AND PELVIS CT WITH IV CONTRAST CT DOSE: 457.02 mGy.cm HISTORY: low abd and rectal pain, constipation TECHNIQUE: Multiaxial CT images of the abdomen and pelvis were performed following the use of intrave nous contrast. A dose lowering technique was utilized adhering to the principles of ALARA. COMPARISON STUDY: Abdomen and pelvis CT 01/02/2020. FINDINGS: A few bibasilar linear densities consistent with subsegmental atelectasis. There is mild el evation of the right hemidiaphragm. No pneumoperitoneum. No pneumatosis. There are poststernotomy edgar nges. Left-sided pectus excavatum deformity is again noted. No suspicious lytic or blastic osseous le sions. Postoperative changes noted within the right groin, unchanged. There is a single mildly enlarg ed right inguinal lymph node measuring 2.0 x 1.4 cm. The liver, spleen, gallbladder, pancreas are unr emarkable. There are stable bilateral adrenal gland nodules with the largest on the right measuring 2 .1 cm. These likely represent benign adenomas. The main portal vein is patent. Bilateral common iliac artery stents are noted. Moderate calcified plaque within the normal caliber abdominal aorta. No ret roperitoneal lymphadenopathy. The kidneys enhance normally. There are multiple bilateral renal calcul i. No ureteral calculi. No hydronephrosis. The prostate gland is mildly enlarged. There is mild bladd er wall thickening, unchanged. This may be secondary to chronic outlet obstruction. There is mild rec [place] wall thickening with perirectal edema. This favors a mild proctitis. Moderate stool seen within t he colon and rectum. No evidence for bowel obstruction. Normal appendix. IMPRESSION: 1. Mild rectal wall thickening with associated perirectal fat stranding. This favors a proctitis. 2. Moderate stool within the colon and rectum. 3. Mild bladder wall thickening, unchanged. This may be due to chronic outlet obstruction from the en larged prostate gland. 4. Bilateral nephrolithiasis. No ureteral stones. No hydronephrosis. 5. Normal appendix. 6. Stable bilateral adrenal gland nodules. 7. Additional findings as described above. ACT 112: Negative or not required by law. Electronically signed by: Otf Avila M.D. 05/04/2021 10:10 AM
--- NOTE | 2021-05-04 11:43 | History & Physical Report ---
Date of Service May 04, 2021 Assessment & Plan (1) Proctitis: Plan: CT a/p on 05/04 showed "mild rectal wall thickening with associated perirectal fat stranding" consistent with proctitis. Ddx includes infection, stercoral colitis, or IBD. Infection seems less likely given he is on Zosyn; however, he does have a leukocytosis. - Continue Zosyn - C. diff ordered, despite not having diarrhea, but he does report pasty BMs when he has them. - Continue bowel regimen (he reports Milk of Mg has been helping). Hold oral iron which may be exacerbating constipation. - GI consulted to help differentiate other possibilities (2) Constipation: Plan: Reports not having a BM for up to 5 days, but then is having pasty BMs when he does. CT a/p on admission showed moderate stool burden. - As above (3) Osteomyelitis due to type 1 diabetes mellitus: Plan: Right heel. Known and chronic. Has been following with [facility]. Will be on chronic Zosyn therapy until R. BKA. Follows with Dr. Soto. - Continue foot soaks with 1/3 saline, 1/3 betadine, and 1/[address] Soto's note dated 04/23/2021. 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 - Continue wound vac - Wound RN consulted (5) Diabetes type 1, controlled: Plan: A1c was 7.4% this month. Has his insulin pump on at time of admission. - Patient prefers to keep pump on for now. - BS ACHS - Glycemic pharmacy consulted given complex insulin needs (6) PAD (peripheral artery disease): Plan: Complex PAD with recent removal of right leg graft in 03/[address] Eason. - Continue ASA, Plavix, statin (7) CAD (coronary artery disease): Plan: S/p 1vCABG in 10/2015. - Continue ASA, Plavix - Continue beta-simi, statin (8) Hypertension: Plan: BP in the ED is 150/55. - Continue home beta-simi, chlorthalidone, and K+ supplement (9) CKD (chronic kidney disease) stage 2, GFR 60-89 ml/min: Plan: Baseline Cr ~0.9. Presently at baseline. - Monitor Cr; renally dose meds (10) Hypothyroidism: Plan: TSH was 0.9 in 04/2021. No signs/symptoms of hypo-/hyperthyroidism. - Continue home Synthroid 175 mcg (11) DVT prophylaxis: Plan: Lovenox 40 mg SQ daily History of Present Illness Chief Complaint: Rectal pain Primary Care Provider: Enio Richards MD 66yo M w/ hx of PAD who presents with rectal pain and found to have proctitis. The patient had been recently admitted to [facility] with right heel osteomyelitis and a wound in the right ghotra. Plan is for R. BKA, but the wound needs to heel first. He had some constipation during the admission which improved with medication here. He reports that he did ok for a while, but about 2 weeks ago developed recurrent constipation and rectal pain. He reports that he can go upwards of 5 days without a BM. When he does, it is pasty and black. He has pain in the rectal/anal area with any sensation of gas or having to have a BM, and the BMs themselves are also quite painful. He denies any blood in the stool (hematochezia), denies any change in appetite (though he does report wanting to eat less due to concern for having to have a BM), denies n/v, denies f/c/ns, denies shortness of breath, denies cough, and denies other ROS. Allergies Allergy/AdvReac Type Severity Reaction Status Date / Time No Known Allergies Allergy Unknown Verified 05/04/21 09:15 Home Medications Medication Instructions Recorded Confirmed Type pantoprazole 40 mg tablet,delayed 40 mg PO QAM #30 tab 04/27/20 05/04/21 Rx release (Protonix) atorvastatin 80 mg tablet (Lipitor) 80 mg PO HS #90 tab 11/25/20 05/04/21 Rx insulin aspart U-100 100 unit/mL 60 unit SQ UD #20 ml 01/14/21 05/04/21 Rx subcutaneous solution (Novolog U-100 Insulin aspart) chlorthalidone 25 mg tablet 25 mg PO QAM #30 tab 01/28/21 05/04/21 Rx clopidogrel 75 mg tablet (Plavix) 75 mg PO QAM #30 tab 01/28/21 05/04/21 Rx oxycodone 5 mg tablet 5 mg PO TID PRN #30 tab 01/28/21 05/04/21 Rx metoprolol tartrate 25 mg tablet 12.5 mg PO BID #90 tab 02/09/21 05/04/21 Rx potassium chloride 20 mEq 20 meq PO BID #60 tab 02/22/21 05/04/21 Rx tablet,extended release collagenase clostridium histo. 250 1 applic TOPICAL DAILY 30 Days #30 03/16/21 05/04/21 Rx unit/gram topical ointment (Santyl) g ferrous sulfate 325 mg (65 mg 325 mg PO BID #60 tab 04/07/21 05/04/21 Rx iron) tablet,delayed release folic acid 1 mg tablet 1 mg PO QAM #30 tab 04/07/21 05/04/21 Rx calcitriol 0.25 mcg capsule 0.25 mcg PO QAM #30 cap 04/27/21 05/04/21 Rx (Rocaltrol) aspirin 81 mg tablet,delayed 81 mg PO QAM 05/04/21 05/04/21 History release (Aspirin Low Dose) levothyroxine 175 mcg tablet 175 mcg PO DAILYBB 05/04/21 05/04/21 History (Synthroid) piperacillin-tazobactam 4.5 4.5 g IV DAILY@2230 05/04/21 05/04/21 History gram/100 mL dextrose(iso-osm) IV piggyback (Zosyn) Past Med/Surg History Medical History (Updated 05/04/21 @ 12:27 by Harley Sharp MD) Aortic stenosis s/p porcine valve replacement (2015) with CABG x 1 CAD (coronary artery disease) s/p CABG x 1 (2015) Chronic renal disease, stage 3, moderately decreased glomerular filtration rate (GFR) between 30-59 mL/min/1.[address] Lerner CKD (chronic kidney disease) stage 2, GFR 60-89 ml/min Diabetes mellitus type 1 + Insulin pump Diabetic nephropathy associated with type 1 diabetes mellitus Dyslipidemia GERD (gastroesophageal reflux disease) Hypertension Hypothyroidism Insulin pump in place Osteoarthritis Osteoporosis PAD (peripheral artery disease) Proliferative diabetic retinopathy associated with type 1 diabetes mellitus PVD (peripheral vascular disease) s/p B/L iliac artery stents (2014), R common/external iliac (2017), R common femoral endarterectomy (11/2018) with bovine patch. Left femoral to PT composite bypass graft (06/2020) VRE infection (vancomycin resistant enterococcus), with multi-drug resistance Surgical History H/O cataract extraction R/L H/O endarterectomy R common femoral (11/2018) H/O vascular surgery Right Femoral to Posterior tibial Prosthetic Bypass Graft(Right) History of ankle surgery LEFT ANKLE +HARDWARE REMOVED History of aortic valve replacement 2016 ([facility]) History of arterial bypass of lower extremity Left femoral to PT composite bypass graft (06/2020) History of cardiac cath x2, most recent 2016 > no stents (subsequent CABG with AVR in 2015) History of carpal tunnel release R/L History of colonoscopy History of coronary artery bypass graft CABG x1 + AVR (2015) History of esophagogastroduodenoscopy (EGD) History of myringotomy History of open reduction and internal fixation (ORIF) procedure LLE () History of skin graft Split Thickness Skin Graft of Left Lateral Ankle (11/18/20): LMA#5, atraumatic x1 at [facility] History of tonsillectomy History of tooth extraction History of umbilical hernia repair Hx of surgical procedure Left Leg Wound Debridement and Irrigation S/P femoropopliteal bypass surgery Right fem-pop bypass graft (01/19/21): Grade 2 view, MAC 3.0, ETT 8.0 at [facility] S/P insertion of iliac artery stent B/L iliac stent placement (2014) 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 Family History Brother Family history of diabetes mellitus Sister Family history of diabetes mellitus Mother Family history of diabetes mellitus Grandmother (Maternal) Family history of diabetes mellitus Uncle Family hx of colon cancer Colorectal cancer Father Family history of esophageal cancer Sister Family history of diabetes mellitus Other No family history of adverse response to anesthesia Denies family history of Ovarian cancer Prostate cancer Myocardial infarction Breast cancer Social History Smoking Status: Former smoker Tobacco Type: Cigarettes and Smokeless Tobacco (Dip or Chew) Cigarettes Per Day: Quit 15 years ago; Second Hand Exposure: No; Hx Alcohol Use: Yes Alcohol type: beer Alcohol Intake Frequency: Monthly or Less Hx Substance Use: No Preferred Language: Thai Communication Ability: Effective Visual Impairment: No Limitations Hearing Ability: Normal Palletizer Required: No Beliefs That Will Affect Care: None marital status: Current Living Situation: Other Current Living Situation Comment: Roommate How many Children do You have: 2 Feels Safe at Home: Yes Childhood Exposure to Second-Hand Smoke: Yes Diet Comment: Carb Counts. (2223-9156, roughly) caffeine: Yes (coffee, rarely ) during the past year weight has: remained stable Dental Care, Regularly: No Physical Activity Frequency: 1-2 Times per Week Seatbelt Use: always Sunscreen Use: No Gender Identity: Male Assistive Devices: Wheelchair Review of Systems Review of Systems: All systems reviewed & are unremarkable except as noted in HPI & below Physical Exam Constitutional: WD/WN, vitals as above Eyes: EOM intact bilaterally; no conjunctival abnormality ENMT: external ear and nose normal, oropharynx normal Neck: trachea midline, no thyromegaly normal visual inspection Respiratory: normal respiratory effort, lungs clear to auscultation no respiratory distress Cardiovascular: RRR, no murmur, no edema Gastrointestinal (Abdomen): Inspection/Auscultation: abdomen normal to inspect ion; abdomen not distended Musculoskeletal: no cyanosis or clubbing, extremities motor strength 5/5 Skin: no rashes, warm and dry Neurologic: moves all extremities and awake Psychiatric: Orientation: alert, oriented to person and cooperative Results & Data Results & Data ([facility]) Vital Signs (Past 12 Hours) Vital Signs Temp Pulse Pulse Resp BP BP Pulse Ox 05/04/21 09:00 78 20 116/63 98 05/04/21 08:47 84 20 144/76 H 98 05/04/21 07:58 98 05/04/21 07:37 37.5 C 85 20 128/72 97 Code Status & VTE Plan VTE Prophylaxis Plan VTE Prophylaxis will be ordered: Yes PG Care Time/CCT Total # of Minutes Spent Total Time Spent with Patient: Total time spent is greater than 50% in coordination of care (as documented) at patient's floor/unit and/or counseling patient: Coding Level of Care Code INT OBSERVATION CARE 70M LVL 3 Diagnoses Proctitis K62.89 Osteomyelitis due to type 1 diabetes mellitus E10.69; M86.9 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 transplanted heart: [place] heart PAD (peripheral artery disease) I73.9 Hypertension I10 Hypertension type: unspecified Hypothyroidism E03.9 Hypothyroidism type: unspecified DVT prophylaxis Z29.9 Constipation K59.00 CKD (chronic kidney disease) stage 2, GFR 60-89 ml/min N18.2 (1) CAD (coronary artery disease) Associated angina: without angina Coronary Disease-Associated Artery/Lesion type: [place] artery [place] vs. transplanted heart: [place] heart Qualified Code(s): I25.10 - Atherosclerotic heart disease of [place] coronary artery without angina pectoris (2) Hypothyroidism Hypothyroidism type: unspecified Qualified Code(s): E03.9 - Hypothyroidism, unspecified (3) Hypertension Hypertension type: unspecified Qualified Code(s): I10 - Essential (primary) hypertension
[2021-05-04] MEDS ORDERED: oxyCODONE HCL IR 5 MG TAB (IMMEDIATE RELEASE) ONE (12:45)
[2021-05-04] MEDS ORDERED: CARBOHYDRATES FOR HYPOGLYCEMIA PO PRN (15:17)
[2021-05-04] MEDS ORDERED: DEXTROSE 50% 50 ML SYRINGE IV PRN (15:17)
[2021-05-04] MEDS ORDERED: GLUCOSE 40% GEL 15 GM TUBE PO PRN (15:17)
[2021-05-04] MEDS ORDERED: GLUCOSE 10 TABS/TUBE PO PRN (15:17)
[2021-05-04] MEDS ORDERED: ONDANSETRON INJ 2 MG/ML 2 ML VIAL IV PRN (15:17)
[2021-05-04] MEDS ORDERED: INSULIN ASPART PER UNIT SQ SCH (15:17)
[2021-05-04] MEDS ORDERED: PHARMACY GLYCEMIC MGMT CONSULT PRN (15:17)
[2021-05-04] MEDS ORDERED: GLUCAGON FOR INJ 1 MG VIAL SQ PRN (15:17)
[2021-05-04] MEDS: ACETAMINOPHEN 325 MG TAB PO PRN (16:00)
[2021-05-04] MEDS ORDERED: PIPERACILL/TAZOBAC CONSULT ACTIVE PRN (17:03)
[2021-05-04] MEDS ORDERED: INSULIN ASPART 100 UNITS/ML VIAL SC PRN (17:15)
[2021-05-04] MEDS: NovoLOG INSULIN PUMP SCH (17:30)
[2021-05-04 20:21] LABS: Cdiff Antigen Positive
[2021-05-04 20:22] LABS: Cdiff Toxin A+B Positive Cdiff Toxin (Negative)
[2021-05-04] MEDS ORDERED: [UNRECOGNIZED DRUG - OTHER] IV SCH (22:30)
[2021-05-04] MEDS: ATORVASTATIN 40 MG TAB PO SCH (23:07)
[2021-05-04] MEDS: MAGNESIUM HYDROXIDE SUSP 30 ML UDC PO SCH (23:08)
[2021-05-04] MEDS: METOPROLOL TARTRATE 25 MG TAB PO SCH (23:08)
[2021-05-04] MEDS: HYDROCORTISONE HC 2.5% CRM 30GM TUBE EXT SCH (23:08)
[2021-05-04] MEDS: PIPERACILLIN/TAZOBACTAM 4.5 GM in DEXTROSE 5% 100 ML IV SCH (23:10)
[2021-05-04] MEDS: POTASSIUM CHLORIDE CRTAB 20 MEQ TABCR PO SCH (23:10)
[2021-05-05] MEDS: NovoLOG INSULIN PUMP SCH ×5 (00:12→20:40)
[2021-05-05] MEDS: RASPBERRY SYRUP 5 ML UDP PO SCH ×5 (00:38→23:54)
[2021-05-05] MEDS: VANCOMYCIN HCL 125 MG/2.5ML SOLN PO SCH ×5 (00:38→23:54)
[2021-05-05] MEDS: HYDROCORTISONE HC 2.5% CRM 30GM TUBE EXT SCH ×3 (01:22→20:39)
[2021-05-05] MEDS: PIPERACILLIN/TAZOBACTAM 4.5 GM in DEXTROSE 5% 100 ML IV SCH ×3 (06:29→22:32)
[2021-05-05] MEDS: LEVOTHYROXINE SODIUM 175 MCG TABLET PO SCH (06:29)
[2021-05-05 08:26] LABS: Hematocrit (blood only) 33.2 % (42-52); Hemoglobin 10.4 g/dL (14.0-18.0); Mean Corpuscular Hgb Conc 31.3 g/dL (32-36); Mean Corpuscular Volume 79.8 fL (80-100); Mean Platelet Volume 8.9 fL (7.4-10.4); Platelet Count 417 K/uL (130-400); RDW Coefficient of Variation 19.2 % (11.5-14.5); RDW Standard Deviation 55.8 fL (36.4-46.3); Red Blood Count 4.16 M/uL (4.7-6.1); White Blood Count 14.77 K/uL (4.8-10.8)
--- NOTE | 2021-05-05 08:33 | Hospitalist Progress Note ---
Date of Service May 05, 2021 Assessment & Plan (1) Proctitis: Plan: CT a/p on 05/04 showed "mild rectal wall thickening with associated perirectal fat stranding" consistent with proctitis. Ddx includes infection, stercoral colitis, or IBD. Infection seems less likely given he is on Zosyn; however, he does have a leukocytosis. - Continue Zosyn for the treatment osteomyelitis Is found to be C. difficile positive started on vancomycin Proctitis pain help with Anusol HC - Continue bowel regimen (he reports Milk of Mg has been helping). Hold oral iron which may be exacerbating constipation. - GI consulted to follow-up with outpatient colonoscopy (2) Constipation: Plan: Reports not having a BM for up to 5 days, but then is having pasty BMs when he does. CT a/p on admission showed moderate stool burden. - add cathartic agents Interestingly C. difficile toxin and gene positive treated with vancomycin. (3) Osteomyelitis due to type 1 diabetes mellitus: Plan: Right heel. Known and chronic. Has been following with Jacob HURTADO. Will be on chronic Zosyn therapy until R. BKA. Follows with Dr. Soto. - Continue foot soaks with 1/3 saline, 1/3 betadine, and 1/[address] Soto's note dated 04/23/2021. 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 - Continue wound vac - Wound RN consulted (5) Diabetes type 1, controlled: Plan: A1c was 7.4% this month. Has his insulin pump on at time of admission. - Patient prefers to keep pump on for now. - BS ACHS - Glycemic pharmacy consulted given complex insulin needs (6) PAD (peripheral artery disease): Plan: Complex PAD with recent removal of right leg graft in 03/[address] Eason. - Continue ASA, Plavix, statin (7) CAD (coronary artery disease): Plan: S/p 1vCABG in 10/2015. - Continue ASA, Plavix - Continue beta-simi, statin (8) Hypertension: Plan: BP in the ED is 150/55. - Continue home beta-simi, chlorthalidone, and K+ supplement (9) CKD (chronic kidney disease) stage 2, GFR 60-89 ml/min: Plan: Baseline Cr ~0.9. Presently at baseline. - Monitor Cr; renally dose meds (10) Hypothyroidism: Plan: TSH was 0.9 in 04/2021. No signs/symptoms of hypo-/hyperthyroidism. - Continue home Synthroid 175 mcg (11) DVT prophylaxis: Plan: Lovenox 40 mg SQ daily Admission and Anticipated Discharge Date Admission Date: May 04, 2021 Subjective Patient since his rectal symptoms have reduced since to beginning treating his C. difficile and also with some Proctofoam hydrocortisone cream to his rectal area. GI medicine recommends outpatient anoscopy in 4 to 6 weeks has no additional recommendations other than treating the infection and symptomatic relief with Proctofoam Review of Systems Review of Systems: Mild distress and fatigue no headache, no visual changes no speech or swallowing issues no chest pain, pressure or palpitations no shortness of breath, cough or wheezes no abdominal pain, nausea or vomiting, diarrhea or constipation no dysuria, hematuria or frequency Apathy prevents much distal pain from his osteomyelitis of his leg. no back pain, CVA tenderness or radicular pain Patient has marked skin changes to his heel and his right fifth toe is blackened wound VAC is in place no focal signs of weakness or numbness or altered sensation no complaints of anxiety or depression.. Physical Exam Physical Exam: The patient appeared stable Vital signs as documented. Head exam is normocephalic atraumatic Neck is without JVD, thyromegaly, or carotid bruits. Lungs are clear to auscultation, no focal loss of breath sounds Cardiac exam, Rhythm is regular.. No murmurs, rubs or gallops. Abdominal exam reveals normal bowel sounds, soft non tender, no masses A small soft stools rectal pain is improving no significant diarrhea Extremity has persistent heel osteomyelitis, gangrenous toes healing lateral leg wound on the right Neurologic exam is alert and oriented, full neuropathy is present Skin is without bruises or rashes Psychologically is without concerns for anxiety or depression Results & Data Results & Data ([facility]) Vital Signs (Past 12 Hours) Vital Signs Temp Pulse Resp BP Pulse Ox 05/04/21 21:45 97.5 F L 97 H 20 132/78 97 PG Care Time/CCT Total # of Minutes Spent Total Time Spent with Patient: Total time spent is greater than 50% in coordination of care (as documented) at patient's floor/unit and/or counseling patient: Coding Level of Care Code 52262 Subseq Hosp Care Lvl 2 Diagnoses Proctitis K62.89 Constipation K59.00 Osteomyelitis due to type 1 diabetes mellitus E10.69; M86.9 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 transplanted heart: [place] heart Hypertension I10 Hypertension type: unspecified CKD (chronic kidney disease) stage 2, GFR 60-89 ml/min N18.2 Hypothyroidism E03.9 Hypothyroidism type: unspecified DVT prophylaxis Z29.9 (1) CAD (coronary artery disease) Associated angina: without angina Coronary Disease-Associated Artery/Lesion type: [place] artery [place] vs. transplanted heart: [place] heart Qualified Code(s): I25.10 - Atherosclerotic heart disease of [place] coronary artery without angina pectoris (2) Hypothyroidism Hypothyroidism type: unspecified Qualified Code(s): E03.9 - Hypothyroidism, unspecified (3) Hypertension Hypertension type: unspecified Qualified Code(s): I10 - Essential (primary) hypertension
[2021-05-05 09:06] LABS: BUN Creatinine Ratio 15.5 (10-20); Calcium 9.3 mg/dl (8.5-10.1); Creatinine Clr Calc Pharmacy 109.6 ml/min; Est GFR (African American) 113.6 ml/min; Magnesium 2.5 mg/dl (1.8-2.4); Potassium 3.5 mmol/L (3.5-5.1)
[2021-05-05] MEDS: MAGNESIUM HYDROXIDE SUSP 30 ML UDC PO SCH ×2 (09:36→20:40)
[2021-05-05] MEDS: ENOXAPARIN INJ 40 MG/0.4 ML SYR SQ SCH (09:36)
[2021-05-05] MEDS: METOPROLOL TARTRATE 25 MG TAB PO SCH ×2 (09:37→20:39)
[2021-05-05] MEDS: CLOPIDOGREL BISULFATE 75 MG TAB PO SCH (09:38)
[2021-05-05] MEDS: FOLIC ACID 1 MG TAB PO SCH (09:38)
[2021-05-05] MEDS: ASPIRIN 81 MG ECTAB PO SCH (09:39)
[2021-05-05] MEDS: CHLORTHALIDONE 25 MG TAB PO SCH (09:39)
[2021-05-05] MEDS: CALCITRIOL 0.25 MCG CAPSULE PO SCH (09:39)
[2021-05-05] MEDS: POTASSIUM CHLORIDE CRTAB 20 MEQ TABCR PO SCH ×2 (09:40→22:32)
[2021-05-05] MEDS: PANTOprazole 40 MG TAB PO SCH (09:41)
--- NOTE | 2021-05-05 09:47 | Gastrointestinal Consultation ---
Date of Consultation May 05, 2021 Assessment & Plan (1) Acute proctitis: (2) Clostridium difficile infection: Pt is a 66 y/o male w c/o constipation, rectal pain, noted to have proctitis on CT scan, also tested Cdiff positive. He has hx of PVD/PAD, osteomyelitis on legs, receiving chronic antibx treatment - Agree with Vancomycin 125mg QID x 10 days - Contact precautions - OP colonoscopy (hx of adenomatous polyps, eval proctitis) in 4-6 weeks time - Osteomyelitis managment per primary team - GI to sign off; recall prn Supervising Physician Co-Signing Physician Notes I have seen and examined the patient with KAREEN Eden whose note reflects our findings and plan. Patient with osteo on abx and pain meds admitted with rectal pain and constipation found to have proctitis on imaging. C diff is positive and will need to be treated. Abd exam is benign. Please call with questions History of Present Illness Reason for Consultation: Proctitis Requesting Physician: Dr. Ron Mares Attending Physician: Dr. Lizbeth Molina History of Present Illness Pt is a 66 y/o male w PMHx of CKD, DM I, PVD/PAD s/p fem-pop bypass, CAD, , osteomyelitis on chronic antibx who presented to ED w c/o rectal pain and constipation. He denies fever, chills, abd pain, n/v, rectal bleeding. He said sometimes can have no BM for 5 days and stools may come out black, pasty. CT abd/pelvis w/ signs of proctitis. Stool cx pending. Cdiff is positive, currently placed on Vancomycin. Reviewed previous colonoscopy reports - hx of hemorrhoids, sigmoid diverticulosis, adenomatous polyps, due for recall this year. Allergies Allergy/AdvReac Type Severity Reaction Status Date / Time No Known Allergies Allergy Unknown Verified 05/04/21 09:15 Home Medications Medication Instructions Recorded Confirmed Type pantoprazole 40 mg tablet,delayed 40 mg PO QAM #30 tab 04/27/20 05/04/21 Rx release (Protonix) atorvastatin 80 mg tablet (Lipitor) 80 mg PO HS #90 tab 11/25/20 05/04/21 Rx insulin aspart U-100 100 unit/mL 60 unit SQ UD #20 ml 01/14/21 05/04/21 Rx subcutaneous solution (Novolog U-100 Insulin aspart) chlorthalidone 25 mg tablet 25 mg PO QAM #30 tab 01/28/21 05/04/21 Rx clopidogrel 75 mg tablet (Plavix) 75 mg PO QAM #30 tab 01/28/21 05/04/21 Rx oxycodone 5 mg tablet 5 mg PO TID PRN #30 tab 01/28/21 05/04/21 Rx metoprolol tartrate 25 mg tablet 12.5 mg PO BID #90 tab 02/09/21 05/04/21 Rx potassium chloride 20 mEq 20 meq PO BID #60 tab 02/22/21 05/04/21 Rx tablet,extended release collagenase clostridium histo. 250 1 applic TOPICAL DAILY 30 Days #30 03/16/21 05/04/21 Rx unit/gram topical ointment (Santyl) g ferrous sulfate 325 mg (65 mg 325 mg PO BID #60 tab 04/07/21 05/04/21 Rx iron) tablet,delayed release folic acid 1 mg tablet 1 mg PO QAM #30 tab 04/07/21 05/04/21 Rx calcitriol 0.25 mcg capsule 0.25 mcg PO QAM #30 cap 04/27/21 05/04/21 Rx (Rocaltrol) aspirin 81 mg tablet,delayed 81 mg PO QAM 05/04/21 05/04/21 History release (Aspirin Low Dose) levothyroxine 175 mcg tablet 175 mcg PO DAILYBB 05/04/21 05/04/21 History (Synthroid) piperacillin-tazobactam 4.5 4.5 g IV DAILY@2230 05/04/21 05/04/21 History gram/100 mL dextrose(iso-osm) IV piggyback (Zosyn) Patient History Medical History Aortic stenosis s/p porcine valve replacement (2015) with CABG x 1 CAD (coronary artery disease) s/p CABG x 1 (2015) Chronic renal disease, stage 3, moderately decreased glomerular filtration rate (GFR) between 30-59 mL/min/1.[address] Lerner CKD (chronic kidney disease) stage 2, GFR 60-89 ml/min Diabetes mellitus type 1 + Insulin pump Diabetic nephropathy associated with type 1 diabetes mellitus Dyslipidemia GERD (gastroesophageal reflux disease) Hypertension Hypothyroidism Insulin pump in place Osteoarthritis Osteoporosis PAD (peripheral artery disease) Proliferative diabetic retinopathy associated with type 1 diabetes mellitus PVD (peripheral vascular disease) s/p B/L iliac artery stents (2014), R common/external iliac (2017), R common femoral endarterectomy (11/2018) with bovine patch. Left femoral to PT composite bypass graft (06/2020) VRE infection (vancomycin resistant enterococcus), with multi-drug resistance Surgical History H/O cataract extraction R/L H/O endarterectomy R common femoral (11/2018) H/O vascular surgery Right Femoral to Posterior tibial Prosthetic Bypass Graft(Right) History of ankle surgery LEFT ANKLE +HARDWARE REMOVED History of aortic valve replacement 2015 [place] [place] History of arterial bypass of lower extremity Left femoral to PT composite bypass graft (06/2020) History of cardiac cath x2, most recent 2016 > no stents (subsequent CABG with AVR in 2015) History of carpal tunnel release R/L History of colonoscopy History of coronary artery bypass graft CABG x1 + AVR (2015) History of esophagogastroduodenoscopy (EGD) History of myringotomy History of open reduction and internal fixation (ORIF) procedure LLE () History of skin graft Split Thickness Skin Graft of Left Lateral Ankle (11/18/20): LMA#5, atraumatic x1 at [facility] History of tonsillectomy History of tooth extraction History of umbilical hernia repair Hx of surgical procedure Left Leg Wound Debridement and Irrigation S/P femoropopliteal bypass surgery Right fem-pop bypass graft (01/19/21): Grade 2 view, MAC 3.0, ETT 8.0 at [facility] S/P insertion of iliac artery stent B/L iliac stent placement (2014) 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 Family History Brother Family history of diabetes mellitus Sister Family history of diabetes mellitus Mother Family history of diabetes mellitus Grandmother (Maternal) Family history of diabetes mellitus Uncle Family hx of colon cancer Colorectal cancer Father Family history of esophageal cancer Sister Family history of diabetes mellitus Other No family history of adverse response to anesthesia Denies family history of Ovarian cancer Prostate cancer Myocardial infarction Breast cancer Social History Smoking Status: Former smoker Tobacco Type: Cigarettes and Smokeless Tobacco (Dip or Chew) Cigarettes Per Day: Quit 15 years ago; Second Hand Exposure: No; Hx Alcohol Use: No Hx Substance Use: No Preferred Language: Montenegrin Communication Ability: Effective Visual Impairment: No Limitations Hearing Ability: Normal Vehicle Assembler Required: No Beliefs That Will Affect Care: None marital status: Current Living Situation: Alone Current Living Situation Comment: with roommate How many Children do You have: 2 Feels Safe at Home: Yes Childhood Exposure to Second-Hand Smoke: Yes Diet Comment: Carb Counts. ([id number], roughly) caffeine: Yes (coffee, rarely ) during the past year weight has: remained stable Dental Care, Regularly: No Physical Activity Frequency: 1-2 Times per Week Seatbelt Use: always Sunscreen Use: No Gender Identity: Male Assistive Devices: None Review of Systems Review of Systems: All systems reviewed & are unremarkable except as noted in HPI & below Physical Exam Constitutional: WD/WN, vitals as above well groomed, cooperative and comfortable Eyes: PERRL, conjunctivae normal, anicteric sclerae ENMT: external ear and nose normal, oropharynx normal Respiratory: normal respiratory effort, lungs clear to auscultation Cardiovascular: RRR, no murmur, no edema Gastrointestinal (Abdomen): normal bowel sounds, soft, nontender, no hepatosplenomegaly Musculoskeletal: Wound VAC to R leg Skin: no rashes, warm and dry no jaundice Neurologic: Motor/Sensory: no asterixis Psychiatric: A+Ox3, euthymic affect Lymphatic: no lymphedema Results & Data ([facility]) Vital Signs (Past 12 Hours) Vital Signs Temp Pulse Resp BP Pulse Ox 05/04/21 21:45 36.4 C L 97 H 20 132/78 97
--- NOTE | 2021-05-05 14:02 | Pharmacy Report ---
Pharmacy Glycemic Short Note 2 - Date of Service May 05, 2021 - Glycemic Short BSG Results (Last 24 hours): 05/04/21 05/04/21 05/05/21 16:29 21:50 08:17 Glucose 97 POC Glucose 80 82 05/05/21 05/05/21 08:22 11:53 Glucose POC Glucose 105 H 127 H OUTPATIENT ANTIDIABETIC REGIMEN: * Novolog t:slim insulin pump * Goal Range: 80-200 mg/dL * Correction Factor: 30 mg/dL * Carbohydrate Ratio: 6 g * Basal Rate: 1.65 units/hr (~ 40 units/day) * HbA1c = 7.4% (04/23/21) ASSESSMENT: * 66 yo M admitted yesterday with proctitis and found to have C. difficile. Pharmacy was consulted to assist with inpatient glycemic management. Patient is well known to pharmacy glycemic service. He has requested to keep his pump on during admission. He is tolerating a type 1 diabetic diet. * BSGs yesterday: 80-82 mg/dL * Fasting BSG 105 mg/dL today. Lunch BSG was 127 mg/dL. * Spoke with patient and he does not have any supplies with him. States his daughter should be able to bring in more insulin but he's not sure if he has anymore sets at home. Set was just changed prior to admission. Informed patient that if no sets were brought in then we would have to transition to basal-bolus insulin. He agreed. Manipulated his pump to confirm settings today. PLAN FOR INPATIENT GLYCEMIC CONTROL: * Continue outpatient insulin pump per settings listed above PLAN FOR DISCHARGE: * HbA1c is at goal for this patient according to endocrinology notes. * No changes recommended at discharge. Continue to follow with [facility].
[2021-05-05] MEDS: ATORVASTATIN 40 MG TAB PO SCH (20:39)
[2021-05-06] MEDS: oxyCODONE HCL IR 5 MG TAB (IMMEDIATE RELEASE) PO PRN ×2 (04:08→23:25)
[2021-05-06] MEDS: LEVOTHYROXINE SODIUM 175 MCG TABLET PO SCH (05:43)
[2021-05-06] MEDS: RASPBERRY SYRUP 5 ML UDP PO SCH ×4 (05:43→23:25)
[2021-05-06] MEDS: VANCOMYCIN HCL 125 MG/2.5ML SOLN PO SCH ×4 (05:43→23:25)
[2021-05-06] MEDS: PIPERACILLIN/TAZOBACTAM 4.5 GM in DEXTROSE 5% 100 ML IV SCH ×3 (05:43→21:18)
[2021-05-06] MEDS: METOPROLOL TARTRATE 25 MG TAB PO SCH ×2 (08:37→21:19)
[2021-05-06] MEDS: PANTOprazole 40 MG TAB PO SCH (08:37)
[2021-05-06] MEDS: CHLORTHALIDONE 25 MG TAB PO SCH (08:38)
[2021-05-06] MEDS: FOLIC ACID 1 MG TAB PO SCH (08:38)
[2021-05-06] MEDS: CLOPIDOGREL BISULFATE 75 MG TAB PO SCH (08:38)
[2021-05-06] MEDS: CALCITRIOL 0.25 MCG CAPSULE PO SCH (08:38)
[2021-05-06] MEDS: ASPIRIN 81 MG ECTAB PO SCH (08:39)
[2021-05-06] MEDS: MAGNESIUM HYDROXIDE SUSP 30 ML UDC PO SCH ×2 (08:40→21:20)
[2021-05-06] MEDS: POTASSIUM CHLORIDE CRTAB 20 MEQ TABCR PO SCH ×2 (08:40→21:20)
[2021-05-06] MEDS: ENOXAPARIN INJ 40 MG/0.4 ML SYR SQ SCH (08:41)
[2021-05-06] MEDS: HYDROCORTISONE HC 2.5% CRM 30GM TUBE EXT SCH ×2 (08:41→21:20)
[2021-05-06] MEDS: NovoLOG INSULIN PUMP SCH (09:45)
--- NOTE | 2021-05-06 09:47 | Pharmacy Report ---
Pharmacy Glycemic Short Note 2 - Date of Service May 06, 2021 - Glycemic Short BSG Results (Last 24 hours): 05/05/21 05/05/21 05/05/21 11:53 16:45 20:39 POC Glucose 127 H 131 H 84 05/06/21 08:53 POC Glucose 221 H OUTPATIENT ANTIDIABETIC REGIMEN: * Novolog t:slim insulin pump * Goal Range: 80-200 mg/dL * Correction Factor: 30 mg/dL * Carbohydrate Ratio: 6 g * Basal Rate: 1.65 units/hr (~ 40 units/day) * HbA1c = 7.4% (04/23/21) ASSESSMENT: 05/06: * Ron was well controlled on his insulin pump yesterday * BSGs were: 646-908-069-84 mg/dL * Unfortunately, patient has no further pump supplies at home and has ran out of insulin. * This led to a fasting BSG of 221 mg/dL this AM * Will switch patient over to basal-bolus insulin regimen and remove pump * Dosing will be based on previous admission data 05/05: * 66 yo M admitted yesterday with proctitis and found to have C. difficile. Pharmacy was consulted to assist with inpatient glycemic management. Patient is well known to pharmacy glycemic service. He has requested to keep his pump on during admission. He is tolerating a type 1 diabetic diet. * BSGs yesterday: 80-82 mg/dL * Fasting BSG 105 mg/dL today. Lunch BSG was 127 mg/dL. * Spoke with patient and he does not have any supplies with him. States his daughter should be able to bring in more insulin but he's not sure if he has anymore sets at home. Set was just changed prior to admission. Informed patient that if no sets were brought in then we would have to transition to basal-bolus insulin. He agreed. Manipulated his pump to confirm settings today. PLAN FOR INPATIENT GLYCEMIC CONTROL: * Remove insulin pump for remainder of admission * Basal insulin * Lantus 35 units SC daily * Bolus insulin * Accucheck ACHS while diet ordered * Goal Range: 110 - 140 mg/dL * Correction factor: 1 unit for every 20 mg/dL above goal range * Carbohydrate ratio: 1 unit for every 4 grams of carbs PLAN FOR DISCHARGE: * HbA1c is at goal for this patient according to endocrinology notes. * No changes recommended at discharge. Continue to follow with [facility] Endocr[facility]ology.
[2021-05-06] MEDS: INSULIN ASPART 100 UNITS/ML 3 ML PEN SC SCH ×4 (10:38→21:17)
[2021-05-06] MEDS: INSULIN GLARGINE SOLOSTAR 100 UNITS/ML 3 ML PEN SC SCH (10:39)
[2021-05-06] MEDS ORDERED: BELLADONNA/OPIUM SUPP 60 MG SUPP PR PRN (15:39)
--- NOTE | 2021-05-06 15:47 | Hospitalist Progress Note ---
Date of Service May 06, 2021 Assessment & Plan (1) Proctitis: Plan: CT a/p on 05/04 showed "mild rectal wall thickening with associated perirectal fat stranding" consistent with proctitis. Ddx includes infection, stercoral colitis, or IBD. Infection seems less likely given he is on Zosyn; however, he does have a leukocytosis. - Continue Zosyn for the treatment osteomyelitis Is found to be C. difficile positive started on vancomycin Proctitis will try B&O suppository to see if it helps pain - Continue bowel regimen (he reports Milk of Mg has been helping). Hold oral iron which may be exacerbating constipation. - GI consulted to follow-up with outpatient colonoscopy (2) Constipation: Plan: Reports not having a BM for up to 5 days, but then is having pasty BMs when he does. CT a/p on admission showed moderate stool burden. - added cathartic agents, now some rectal incontinence Interestingly C. difficile toxin and gene positive treated with vancomycin. (3) Osteomyelitis due to type 1 diabetes mellitus: Plan: Right heel. Known and chronic. Has been following with Jacob [facility]URTAD[facility]. Will be on chronic Zosyn therapy until R. BKA. Follows with Dr. Soto. - Continue foot soaks with 1/3 saline, 1/3 betadine, and 1/[address] Soto's note dated 04/23/2021. 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 - Continue wound vac - Wound RN consulted (5) Diabetes type 1, controlled: Plan: A1c was 7.4% this month. Has his insulin pump on at time of admission. - Patient prefers to keep pump on for now. - BS ACHS - Glycemic pharmacy consulted given complex insulin needs (6) PAD (peripheral artery disease): Plan: Complex PAD with recent removal of right leg graft in 03/[address] Eason. - Continue ASA, Plavix, statin (7) CAD (coronary artery disease): Plan: S/p 1vCABG in 10/2015. - Continue ASA, Plavix - Continue beta-simi, statin (8) Hypertension: Plan: BP in the ED is 150/55. - Continue home beta-simi, chlorthalidone, and K+ supplement (9) CKD (chronic kidney disease) stage 2, GFR 60-89 ml/min: Plan: Baseline Cr ~0.9. Presently at baseline. - Monitor Cr; renally dose meds (10) Hypothyroidism: Plan: TSH was 0.9 in 04/2021. No signs/symptoms of hypo-/hyperthyroidism. - Continue home Synthroid 175 mcg (11) DVT prophylaxis: Plan: Lovenox 40 mg SQ daily Admission and Anticipated Discharge Date Admission Date: May 04, 2021 Subjective pt is still having waves of rectal pain. his foot is about the same. he feels the rectal pain will prohibit him returning home, is having loose bowel movements Review of Systems Review of Systems: Mild distress and fatigue no headache, no visual changes no speech or swallowing issues no chest pain, pressure or palpitations no shortness of breath, cough or wheezes no abdominal pain, nausea or vomiting, rectal incontinent no dysuria, hematuria or frequency neuropathy prevents much distal pain from his osteomyelitis of his leg. no back pain, CVA tenderness or radicular pain Patient has marked skin changes to his heel and his right fifth toe is blackened wound VAC is in place no focal signs of weakness or numbness or altered sensation no complaints of anxiety or depression.. Physical Exam Physical Exam: The patient appeared stable Vital signs as documented. Head exam is normocephalic atraumatic Neck is without JVD, thyromegaly, or carotid bruits. Lungs are clear to auscultation, no focal loss of breath sounds Cardiac exam, Rhythm is regular.. No murmurs, rubs or gallops. Abdominal exam reveals normal bowel sounds, soft non tender, no masses A small soft stools rectal pain is improving no significant diarrhea Extremity has persistent heel osteomyelitis, gangrenous toes healing lateral leg wound on the right Neurologic exam is alert and oriented, full neuropathy is present Skin is without bruises or rashes Psychologically is without concerns for anxiety or depression Results & Data Results & Data ([facility]) Vital Signs (Past 12 Hours) Vital Signs Temp Pulse Resp BP Pulse Ox 05/06/21 14:43 98.4 F 84 20 127/68 97 05/06/21 07:32 99.0 F 70 18 124/72 95 PG Care Time/CCT Total # of Minutes Spent Total Time Spent with Patient: Total time spent is greater than 50% in coordination of care (as documented) at patient's floor/unit and/or counseling patient: Coding Level of Care Code 07896 Subseq Hosp Care Lvl 2 Diagnoses Proctitis K62.89 Constipation K59.00 Osteomyelitis due to type 1 diabetes mellitus E10.69; M86.9 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 transplanted heart: [place] heart Associated angina: without angina Hypertension I10 Hypertension type: unspecified CKD (chronic kidney disease) stage 2, GFR 60-89 ml/min N18.2 Hypothyroidism E03.9 Hypothyroidism type: unspecified DVT prophylaxis Z29.9 (1) CAD (coronary artery disease) Coronary Disease-Associated Artery/Lesion type: [place] artery [place] vs. transplanted heart: [place] heart Associated angina: without angina Qualified Code(s): I25.10 - Atherosclerotic heart disease of [place] coronary artery without angina pectoris (2) Hypertension Hypertension type: unspecified Qualified Code(s): I10 - Essential (primary) hypertension (3) Hypothyroidism Hypothyroidism type: unspecified Qualified Code(s): E03.9 - Hypothyroidism, unspecified
[2021-05-06] MEDS ORDERED: INSULIN GLARGINE SOLOSTAR 100 UNITS/ML 3 ML PEN SC SCH (21:00)
[2021-05-06] MEDS: ATORVASTATIN 40 MG TAB PO SCH (21:19)
[2021-05-07] MEDS: oxyCODONE HCL IR 5 MG TAB (IMMEDIATE RELEASE) PO PRN ×2 (01:42→10:03)
[2021-05-07] MEDS: RASPBERRY SYRUP 5 ML UDP PO SCH ×4 (05:47→23:58)
[2021-05-07] MEDS: LEVOTHYROXINE SODIUM 175 MCG TABLET PO SCH (05:47)
[2021-05-07] MEDS: VANCOMYCIN HCL 125 MG/2.5ML SOLN PO SCH ×4 (05:47→23:58)
[2021-05-07] MEDS: PIPERACILLIN/TAZOBACTAM 4.5 GM in DEXTROSE 5% 100 ML IV SCH ×3 (05:48→22:21)
[2021-05-07] MEDS: FOLIC ACID 1 MG TAB PO SCH (08:57)
[2021-05-07] MEDS: HYDROCORTISONE HC 2.5% CRM 30GM TUBE EXT SCH ×2 (08:57→22:21)
[2021-05-07] MEDS: CLOPIDOGREL BISULFATE 75 MG TAB PO SCH (08:57)
[2021-05-07] MEDS: ASPIRIN 81 MG ECTAB PO SCH (08:57)
[2021-05-07] MEDS: CHLORTHALIDONE 25 MG TAB PO SCH (08:58)
[2021-05-07] MEDS: CALCITRIOL 0.25 MCG CAPSULE PO SCH (08:58)
[2021-05-07] MEDS: ENOXAPARIN INJ 40 MG/0.4 ML SYR SQ SCH (08:58)
[2021-05-07] MEDS: METOPROLOL TARTRATE 25 MG TAB PO SCH ×2 (08:59→21:28)
[2021-05-07] MEDS: PANTOprazole 40 MG TAB PO SCH (08:59)
[2021-05-07] MEDS ORDERED: Nursing to Pharmacy Communication SCH (09:00)
[2021-05-07] MEDS: POTASSIUM CHLORIDE CRTAB 20 MEQ TABCR PO SCH ×2 (09:12→22:18)
[2021-05-07] MEDS: MAGNESIUM HYDROXIDE SUSP 30 ML UDC PO SCH ×2 (09:12→22:18)
[2021-05-07] MEDS: INSULIN GLARGINE SOLOSTAR 100 UNITS/ML 3 ML PEN SC SCH (10:14)
[2021-05-07] MEDS: INSULIN ASPART 100 UNITS/ML 3 ML PEN SC SCH (10:14)
--- NOTE | 2021-05-07 10:29 | Pharmacy Report ---
Pharmacy Glycemic Short Note 2 - Date of Service May 07, 2021 - Glycemic Short BSG Results (Last 24 hours): 05/06/21 05/06/21 05/06/21 12:14 15:32 17:14 POC Glucose 289 H 85 130 H 05/06/21 05/07/21 20:36 08:54 POC Glucose 206 H 260 H OUTPATIENT ANTIDIABETIC REGIMEN: * Novolog t:slim insulin pump * Goal Range: 80-200 mg/dL * Correction Factor: 30 mg/dL * Carbohydrate Ratio: 6 g * Basal Rate: 1.65 units/hr (~ 40 units/day) * HbA1c = 7.4% (04/23/21) ASSESSMENT: 05/07: * Patient received 114 units of insulin yesterday * 55 units basal + 59 units bolus * BSGs were uncontrolled: 250-753-83-130-206 mg/dL * Fasting BSG was 260 mg/dL this AM. * Was going to increase Lantus but patient had daughter bring in new supplies last evening and he wants to resume his home insulin pump. Despite hypergly cemia this morning, I agreed to allow patient to use pump since he had good control with pump earlier this admission. Explained that if hyperglycemia persists, then we may have to use basal-bolus. Pump was resumed around 0800 today. 05/06: * Ron was well controlled on his insulin pump yesterday * BSGs were: 694-476-445-84 mg/dL * Unfortunately, patient has no further pump supplies at home and has ran out of insulin. * This led to a fasting BSG of 221 mg/dL this AM * Will switch patient over to basal-bolus insulin regimen and remove pump * Dosing will be based on previous admission data 05/05: * 66 yo M admitted yesterday with proctitis and found to have C. difficile. Pharmacy was consulted to assist with inpatient glycemic management. Patient is well known to pharmacy glycemic service. He has requested to keep his pump on during admission. He is tolerating a type 1 diabetic diet. * BSGs yesterday: 80-82 mg/dL * Fasting BSG 105 mg/dL today. Lunch BSG was 127 mg/dL. * Spoke with patient and he does not have any supplies with him. States his daughter should be able to bring in more insulin but he's not sure if he has anymore sets at home. Set was just changed prior to admission. Informed patient that if no sets were brought in then we would have to transition to basal-bolus insulin. He agreed. Manipulated his pump to confirm settings today. PLAN FOR INPATIENT GLYCEMIC CONTROL: * Restarted home insulin pump per settings listed above PLAN FOR DISCHARGE: * HbA1c is at goal for this patient according to endocrinology notes. * No changes recommended at discharge. Continue to follow with [facility].
[2021-05-07] MEDS: NovoLOG INSULIN PUMP SCH ×8 (14:03→22:23)
--- NOTE | 2021-05-07 18:29 | Hospitalist Progress Note ---
Date of Service May 07, 2021 Assessment & Plan (1) Proctitis: Plan: CT a/p on 05/04 showed "mild rectal wall thickening with associated perirectal fat stranding" consistent with proctitis. Ddx includes infection, stercoral colitis, or IBD. Infection seems less likely given he is on Zosyn; however, he does have a leukocytosis. - Continue Zosyn for the treatment osteomyelitis Is found to be C. difficile positive started on vancomycin Proctitis he could not tolerate the insertion of B&O suppository - Continue bowel regimen (will add senna). Hold oral iron which may be exacerbating constipation. - GI consulted to follow-up with outpatient colonoscopy (2) Constipation: Plan: Reports not having a BM for up to 5 days, but then is having pasty BMs when he does. CT a/p on admission showed moderate stool burden. - added senna pt will add prunes to diet Interestingly C. difficile toxin and gene positive treated with vancomycin. (3) Osteomyelitis due to type 1 diabetes mellitus: Plan: Right heel. Known and chronic. Has been following with Jacob HURTADO. Will be on chronic Zosyn therapy until R. BKA. Follows with Dr. Soto. - Continue foot soaks with 1/3 saline, 1/3 betadine, and 1/[address] Soto's note dated 04/23/2021. 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 - Continue wound vac - Wound RN consulted (5) Diabetes type 1, controlled: Plan: A1c was 7.4% this month. Has his insulin pump on at time of admission. - Patient prefers to keep pump on for now. - BS ACHS - Glycemic pharmacy consulted given complex insulin needs (6) PAD (peripheral artery disease): Plan: Complex PAD with recent removal of right leg graft in 03/[address] Eason. - Continue ASA, Plavix, statin (7) CAD (coronary artery disease): Plan: S/p 1vCABG in 10/2015. - Continue ASA, Plavix - Continue beta-simi, statin (8) Hypertension: Plan: BP in the ED is 150/55. - Continue home beta-simi, chlorthalidone, and K+ supplement (9) CKD (chronic kidney disease) stage 2, GFR 60-89 ml/min: Plan: Baseline Cr ~0.9. Presently at baseline. - Monitor Cr; renally dose meds (10) Hypothyroidism: Plan: TSH was 0.9 in 04/2021. No signs/symptoms of hypo-/hyperthyroidism. - Continue home Synthroid 175 mcg (11) DVT prophylaxis: Plan: Lovenox 40 mg SQ daily Admission and Anticipated Discharge Date Admission Date: May 04, 2021 Subjective Patient is very challenging he is reluctant to go home due to the severity of waves of rectal pain. his foot is about the same as we prepare for BKA with continuous intravenous antibiotics.. Is also worried about his bowel movements. Feels that still are involving some constipation Review of Systems Review of Systems: Mild distress and fatigue no headache, no visual changes no speech or swallowing issues no chest pain, pressure or palpitations no shortness of breath, cough or wheezes no abdominal pain, nausea or vomiting, rectal incontinent no dysuria, hematuria or frequency neuropathy prevents much distal pain from his osteomyelitis of his leg. no back pain, CVA tenderness or radicular pain Patient has marked skin changes to his heel and his right fifth toe is blackened wound VAC is in place no focal signs of weakness or numbness or altered sensation no complaints of anxiety or depression.. Physical Exam Physical Exam: The patient appeared stable Vital signs as documented. Head exam is normocephalic atraumatic Neck is without JVD, thyromegaly, or carotid bruits. Lungs are clear to auscultation, no focal loss of breath sounds Cardiac exam, Rhythm is regular.. No murmurs, rubs or gallops. Abdominal exam reveals normal bowel sounds, soft non tender, no masses A small soft stools rectal pain is improving no significant diarrhea Extremity has persistent heel osteomyelitis, gangrenous toes healing lateral leg wound on the right Neurologic exam is alert and oriented, full neuropathy is present Skin is without bruises or rashes Psychologically is without concerns for anxiety or depression Results & Data Results & Data ([facility]) Vital Signs (Past 12 Hours) Vital Signs Temp Pulse Resp BP Pulse Ox 05/07/21 16:23 98.4 F 78 18 128/77 98 05/07/21 08:06 97.3 F L 75 16 129/78 97 PG Care Time/CCT Total # of Minutes Spent Total Time Spent with Patient: Total time spent is greater than 50% in coordination of care (as documented) at patient's floor/unit and/or counseling patient: Coding Level of Care Code 17471 Subseq Hosp Care Lvl 2 Diagnoses Proctitis K62.89 Constipation K59.00 Osteomyelitis due to type 1 diabetes mellitus E10.69; M86.9 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 transplanted heart: [place] heart Associated angina: without angina Hypertension I10 Hypertension type: unspecified CKD (chronic kidney disease) stage 2, GFR 60-89 ml/min N18.2 Hypothyroidism E03.9 Hypothyroidism type: unspecified DVT prophylaxis Z29.9 (1) CAD (coronary artery disease) Coronary Disease-Associated Artery/Lesion type: [place] artery [place] vs. transplanted heart: [place] heart Associated angina: without angina Qualified Code(s): I25.10 - Atherosclerotic heart disease of [place] coronary artery without angina pectoris (2) Hypertension Hypertension type: unspecified Qualified Code(s): I10 - Essential (primary) hypertension (3) Hypothyroidism Hypothyroidism type: unspecified Qualified Code(s): E03.9 - Hypothyroidism, unspecified
[2021-05-07] MEDS ORDERED: SENNOSIDES 8.8 MG/5 ML UDC PO ONE (18:30)
[2021-05-07] MEDS: ATORVASTATIN 40 MG TAB PO SCH (21:29)
[2021-05-08] MEDS: oxyCODONE HCL IR 5 MG TAB (IMMEDIATE RELEASE) PO PRN ×2 (02:44→17:48)
[2021-05-08] MEDS: VANCOMYCIN HCL 125 MG/2.5ML SOLN PO SCH ×3 (05:54→17:43)
[2021-05-08] MEDS: RASPBERRY SYRUP 5 ML UDP PO SCH ×3 (05:54→17:43)
[2021-05-08] MEDS: LEVOTHYROXINE SODIUM 175 MCG TABLET PO SCH (05:54)
[2021-05-08] MEDS: PIPERACILLIN/TAZOBACTAM 4.5 GM in DEXTROSE 5% 100 ML IV SCH ×3 (05:56→22:24)
[2021-05-08] MEDS: ACETAMINOPHEN 325 MG TAB PO PRN (07:10)
[2021-05-08] MEDS: NovoLOG INSULIN PUMP SCH ×4 (08:56→21:30)
[2021-05-08] MEDS: PANTOprazole 40 MG TAB PO SCH (08:57)
[2021-05-08] MEDS: CHLORTHALIDONE 25 MG TAB PO SCH (08:57)
[2021-05-08] MEDS: ASPIRIN 81 MG ECTAB PO SCH (08:57)
[2021-05-08] MEDS: CALCITRIOL 0.25 MCG CAPSULE PO SCH (08:57)
[2021-05-08] MEDS: CLOPIDOGREL BISULFATE 75 MG TAB PO SCH (08:58)
[2021-05-08] MEDS: FOLIC ACID 1 MG TAB PO SCH (08:59)
[2021-05-08] MEDS: HYDROCORTISONE HC 2.5% CRM 30GM TUBE EXT SCH ×2 (08:59→20:36)
[2021-05-08] MEDS: ENOXAPARIN INJ 40 MG/0.4 ML SYR SQ SCH (08:59)
[2021-05-08] MEDS: METOPROLOL TARTRATE 25 MG TAB PO SCH ×2 (09:00→20:34)
[2021-05-08] MEDS: POTASSIUM CHLORIDE CRTAB 20 MEQ TABCR PO SCH ×2 (09:34→20:35)
[2021-05-08] MEDS: MAGNESIUM HYDROXIDE SUSP 30 ML UDC PO SCH ×2 (09:34→20:35)
[2021-05-08] MEDS: SENNA 8.6 MG TAB PO SCH (09:35)
--- NOTE | 2021-05-08 18:56 | Hospitalist Progress Note ---
Date of Service May 08, 2021 Assessment & Plan (1) Proctitis: Plan: CT a/p on 05/04 showed "mild rectal wall thickening with associated perirectal fat stranding" consistent with proctitis. Ddx includes infection, stercoral colitis, or IBD. Infection seems less likely given he is on Zosyn; however, he does have a leukocytosis. - Continue Zosyn for the treatment osteomyelitis Is found to be C. difficile positive started on vancomycin Proctitis he could not tolerate the insertion of B&O suppository - Continue bowel regimen (will add senna). Hold oral iron which may be exacerbating constipation. - GI consulted to follow-up with outpatient colonoscopy (2) Constipation: Plan: Reports not having a BM for up to 5 days, but then is having pasty BMs when he does. CT a/p on admission showed moderate stool burden. - added senna pt will add prunes to diet Interestingly C. difficile toxin and gene positive treated with vancomycin. (3) Osteomyelitis due to type 1 diabetes mellitus: Plan: Right heel. Known and chronic. Has been following with Jacob HURTADO. Will be on chronic Zosyn therapy until R. BKA. Follows with Dr. Soto. - Continue foot soaks with 1/3 saline, 1/3 betadine, and 1/[address] Soto's note dated 04/23/2021. 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 - Continue wound vac - Wound RN consulted (5) Diabetes type 1, controlled: Plan: A1c was 7.4% this month. Has his insulin pump on at time of admission. - Patient prefers to keep pump on for now. - BS ACHS - Glycemic pharmacy consulted given complex insulin needs (6) PAD (peripheral artery disease): Plan: Complex PAD with recent removal of right leg graft in 03/[address] Eason. - Continue ASA, Plavix, statin (7) CAD (coronary artery disease): Plan: S/p 1vCABG in 10/2015. - Continue ASA, Plavix - Continue beta-simi, statin (8) Hypertension: Plan: BP in the ED is 150/55. - Continue home beta-simi, chlorthalidone, and K+ supplement (9) CKD (chronic kidney disease) stage 2, GFR 60-89 ml/min: Plan: Baseline Cr ~0.9. Presently at baseline. - Monitor Cr; renally dose meds (10) Hypothyroidism: Plan: TSH was 0.9 in 04/2021. No signs/symptoms of hypo-/hyperthyroidism. - Continue home Synthroid 175 mcg (11) DVT prophylaxis: Plan: Lovenox 40 mg SQ daily Admission and Anticipated Discharge Date Admission Date: May 04, 2021 Subjective Patient is very challenging he is reluctant to go home due to the severity of waves of rectal pain. his foot is about the same as we prepare for BKA with continuous intravenous antibiotics.. Is also worried about his bowel movements. Feels that still are involving some constipation, still with cathartic agents, will have x ray in am and check labs Review of Systems Review of Systems: Mild distress and fatigue no headache, no visual changes no speech or swallowing issues no chest pain, pressure or palpitations no shortness of breath, cough or wheezes no abdominal pain, nausea or vomiting, rectal incontinent no dysuria, hematuria or frequency neuropathy prevents much distal pain from his osteomyelitis of his leg. no back pain, CVA tenderness or radicular pain Patient has marked skin changes to his heel and his right fifth toe is blackened wound VAC is in place no focal signs of weakness or numbness or altered sensation no complaints of anxiety or depression.. Physical Exam Physical Exam: The patient appeared stable Vital signs as documented. Head exam is normocephalic atraumatic Neck is without JVD, thyromegaly, or carotid bruits. Lungs are clear to auscultation, no focal loss of breath sounds Cardiac exam, Rhythm is regular.. No murmurs, rubs or gallops. Abdominal exam reveals normal bowel sounds, soft non tender, no masses A small soft stools rectal pain is improving no significant diarrhea Extremity has persistent heel osteomyelitis, gangrenous toes healing lateral leg wound on the right Neurologic exam is alert and oriented, full neuropathy is present Skin is without bruises or rashes Psychologically is without concerns for anxiety or depression Results & Data Results & Data ([facility]) Vital Signs (Past 12 Hours) Vital Signs Temp Pulse Resp BP Pulse Ox 05/08/21 17:08 98.8 F 68 16 136/77 96 05/08/21 07:22 97.7 F 78 16 146/80 H 96 PG Care Time/CCT Total # of Minutes Spent Total Time Spent with Patient: Total time spent is greater than 50% in coordination of care (as documented) at patient's floor/unit and/or counseling patient: Coding Level of Care Code 30511 Subseq Hosp Care Lvl 2 Diagnoses Proctitis K62.89 Constipation K59.00 Osteomyelitis due to type 1 diabetes mellitus E10.69; M86.9 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 transplanted heart: [place] heart Associated angina: without angina Hypertension I10 Hypertension type: unspecified CKD (chronic kidney disease) stage 2, GFR 60-89 ml/min N18.2 Hypothyroidism E03.9 Hypothyroidism type: unspecified DVT prophylaxis Z29.9 (1) CAD (coronary artery disease) Coronary Disease-Associated Artery/Lesion type: [place] artery [place] vs. transplanted heart: [place] heart Associated angina: without angina Qualified Code(s): I25.10 - Atherosclerotic heart disease of [place] coronary artery without angina pectoris (2) Hypertension Hypertension type: unspecified Qualified Code(s): I10 - Essential (primary) hypertension (3) Hypothyroidism Hypothyroidism type: unspecified Qualified Code(s): E03.9 - Hypothyroidism, unspecified
[2021-05-08] MEDS: ATORVASTATIN 40 MG TAB PO SCH (20:35)
[2021-05-09] MEDS: VANCOMYCIN HCL 125 MG/2.5ML SOLN PO SCH ×5 (00:22→23:56)
[2021-05-09] MEDS: RASPBERRY SYRUP 5 ML UDP PO SCH ×5 (00:22→23:56)
[2021-05-09] MEDS: ACETAMINOPHEN 325 MG TAB PO PRN (02:22)
[2021-05-09] MEDS: PIPERACILLIN/TAZOBACTAM 4.5 GM in DEXTROSE 5% 100 ML IV SCH ×3 (06:05→21:33)
[2021-05-09] MEDS: oxyCODONE HCL IR 5 MG TAB (IMMEDIATE RELEASE) PO PRN (06:06)
[2021-05-09] MEDS: LEVOTHYROXINE SODIUM 175 MCG TABLET PO SCH (06:06)
[2021-05-09 06:10] LABS: Hematocrit (blood only) 34.3 % (42-52); Hemoglobin 10.8 g/dL (14.0-18.0); Mean Corpuscular Hemoglobin 25.3 pg (25-34); Mean Corpuscular Hgb Conc 31.5 g/dL (32-36); Mean Corpuscular Volume 80.3 fL (80-100); Mean Platelet Volume 9.2 fL (7.4-10.4); Platelet Count 474 K/uL (130-400); RDW Coefficient of Variation 18.8 % (11.5-14.5); RDW Standard Deviation 55.7 fL (36.4-46.3); Red Blood Count 4.27 M/uL (4.7-6.1); White Blood Count 11.71 K/uL (4.8-10.8)
[2021-05-09 06:35] LABS: BUN Creatinine Ratio 13.2 (10-20); Calcium 9.4 mg/dl (8.5-10.1); Creatinine Clr Calc Pharmacy 81.6 ml/min; Est GFR (African American) 94.1 ml/min; Est GFR (Non-African American) 81.2 ml/min; Potassium 3.9 mmol/L (3.5-5.1)
--- NOTE | 2021-05-09 08:36 | XRay Report ---
KUB HISTORY: eval for obstipation COMPARISON: KUB 04/01/2021. FINDINGS: There are poststernotomy changes. Linear densities at the lung bases favor subsegmental ate lectasis are scarring. There are a few punctate bilateral renal calculi, unchanged. Surgical clips wi thin the right groin and a bilateral iliac vascular stents are again noted. No dilated loops of bowel to suggest an obstruction. Gas-filled nondistended colon is similar to the prior study. No pneumoper itoneum or pneumatosis. IMPRESSION: 1. No evidence for bowel obstruction. 2. Bilateral nephrolithiasis. No ureteral calculi. ACT 112: Negative or not required by law. Electronically signed by: Otf Avila M.D. 05/09/2021 8:35 AM
[2021-05-09] MEDS: POTASSIUM CHLORIDE CRTAB 20 MEQ TABCR PO SCH ×2 (09:25→20:17)
[2021-05-09] MEDS: ENOXAPARIN INJ 40 MG/0.4 ML SYR SQ SCH (09:25)
[2021-05-09] MEDS: CLOPIDOGREL BISULFATE 75 MG TAB PO SCH (09:26)
[2021-05-09] MEDS: METOPROLOL TARTRATE 25 MG TAB PO SCH ×2 (09:26→20:15)
[2021-05-09] MEDS: MAGNESIUM HYDROXIDE SUSP 30 ML UDC PO SCH (09:27)
[2021-05-09] MEDS: PANTOprazole 40 MG TAB PO SCH (09:27)
[2021-05-09] MEDS: HYDROCORTISONE HC 2.5% CRM 30GM TUBE EXT SCH ×2 (09:27→20:15)
[2021-05-09] MEDS: CALCITRIOL 0.25 MCG CAPSULE PO SCH (09:27)
[2021-05-09] MEDS: ASPIRIN 81 MG ECTAB PO SCH (09:28)
[2021-05-09] MEDS: SENNA 8.6 MG TAB PO SCH (09:28)
[2021-05-09] MEDS: FOLIC ACID 1 MG TAB PO SCH (09:28)
[2021-05-09] MEDS: CHLORTHALIDONE 25 MG TAB PO SCH (09:28)
[2021-05-09] MEDS: NovoLOG INSULIN PUMP SCH ×4 (09:29→20:32)
[2021-05-09] MEDS ORDERED: MoRPHine SULFATE 2 MG/ML CARP IV PRN (09:54)
--- NOTE | 2021-05-09 17:15 | Hospitalist Progress Note ---
Date of Service May 09, 2021 Assessment & Plan (1) Proctitis: Plan: CT a/p on 05/04 showed "mild rectal wall thickening with associated perirectal fat stranding" consistent with proctitis. Ddx includes infection, stercoral colitis, or IBD. Infection seems less likely given he is on Zosyn; however, he does have a leukocytosis. - Continue Zosyn for the treatment osteomyelitis Is found to be C. difficile positive started on vancomycin Proctitis he could not tolerate the insertion of B&O suppository - reduce bowel regimen (will add senna). Hold oral iron which may be exacerbating constipation. - GI consulted recommend outpatient colonoscopy (2) Constipation: Plan: Reports not having a BM for up to 5 days, but then is having pasty BMs when he does. CT a/p on admission showed moderate stool burden. - added senna pt will add prunes to diet Interestingly C. difficile toxin and gene positive treated with vancomycin. (3) Osteomyelitis due to type 1 diabetes mellitus: Plan: Right heel. Known and chronic. Has been following with Jacob HURTADO. Will be on chronic Zosyn therapy until R. BKA. Follows with Dr. Soto. - Continue foot soaks with 1/3 saline, 1/3 betadine, and 1/[address] Soto's note dated 04/23/2021. 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 - Continue wound vac - Wound RN consulted (5) Diabetes type 1, controlled: Plan: A1c was 7.4% this month. Has his insulin pump on at time of admission. - Patient prefers to keep pump on for now. - BS ACHS - Glycemic pharmacy consulted given complex insulin needs (6) PAD (peripheral artery disease): Plan: Complex PAD with recent removal of right leg graft in 03/[address] Eason. - Continue ASA, Plavix, statin (7) CAD (coronary artery disease): Plan: S/p 1vCABG in 10/2015. - Continue ASA, Plavix - Continue beta-simi, statin (8) Hypertension: Plan: BP in the ED is 150/55. - Continue home beta-simi, chlorthalidone, and K+ supplement (9) CKD (chronic kidney disease) stage 2, GFR 60-89 ml/min: Plan: Baseline Cr ~0.9. Presently at baseline. - Monitor Cr; renally dose meds (10) Hypothyroidism: Plan: TSH was 0.9 in 04/2021. No signs/symptoms of hypo-/hyperthyroidism. - Continue home Synthroid 175 mcg (11) DVT prophylaxis: Plan: Lovenox 40 mg SQ daily Admission and Anticipated Discharge Date Admission Date: May 09, 2021 Subjective Patient is very challenging he is reluctant to go home due to the severity of waves of rectal pain. his foot is about the same as we prepare for BKA with continuous intravenous antibiotics.. Is also worried about his bowel movements. Feels that still are involving some constipation, still with cathartic agents, x ray 05/09 does not show significant stool burdeon or ileus Review of Systems Review of Systems: Mild distress and fatigue no headache, no visual changes no speech or swallowing issues no chest pain, pressure or palpitations no shortness of breath, cough or wheezes no abdominal pain, nausea or vomiting, rectal incontinent no dysuria, hematuria or frequency neuropathy prevents much distal pain from his osteomyelitis of his leg. no back pain, CVA tenderness or radicular pain Patient has marked skin changes to his heel and his right fifth toe is blackened wound VAC is in place no focal signs of weakness or numbness or altered sensation no complaints of anxiety or depression.. Physical Exam Physical Exam: The patient appeared stable Vital signs as documented. Head exam is normocephalic atraumatic Neck is without JVD, thyromegaly, or carotid bruits. Lungs are clear to auscultation, no focal loss of breath sounds Cardiac exam, Rhythm is regular.. No murmurs, rubs or gallops. Abdominal exam reveals normal bowel sounds, soft non tender, no masses pt having brown liquid stools after cathartics Extremity has persistent heel osteomyelitis, gangrenous toes healing lateral leg wound on the right Neurologic exam is alert and oriented, full neuropathy is present Skin is without bruises or rashes Psychologically is without concerns for anxiety or depression Results & Data Results & Data ([facility]) Vital Signs (Past 12 Hours) Vital Signs Temp Pulse Resp BP Pulse Ox 05/09/21 16:00 98.8 F 77 18 127/75 95 05/09/21 07:30 98.4 F 71 20 121/71 95 PG Care Time/CCT Total # of Minutes Spent Total Time Spent with Patient: Total time spent is greater than 50% in coordination of care (as documented) at patient's floor/unit and/or counseling patient: Coding Level of Care Code 29442 Subseq Hosp Care Lvl 2 Diagnoses Proctitis K62.89 Constipation K59.00 Osteomyelitis due to type 1 diabetes mellitus E10.69; M86.9 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 transplanted heart: [place] heart Associated angina: without angina Hypertension I10 Hypertension type: unspecified CKD (chronic kidney disease) stage 2, GFR 60-89 ml/min N18.2 Hypothyroidism E03.9 Hypothyroidism type: unspecified DVT prophylaxis Z29.9 (1) CAD (coronary artery disease) Coronary Disease-Associated Artery/Lesion type: [place] artery [place] vs. transplanted heart: [place] heart Associated angina: without angina Qualified Code(s): I25.10 - Atherosclerotic heart disease of [place] coronary artery without angina pectoris (2) Hypertension Hypertension type: unspecified Qualified Code(s): I10 - Essential (primary) hypertension (3) Hypothyroidism Hypothyroidism type: unspecified Qualified Code(s): E03.9 - Hypothyroidism, unspecified
[2021-05-09] MEDS: ATORVASTATIN 40 MG TAB PO SCH (20:16)
[2021-05-10] MEDS: oxyCODONE HCL IR 5 MG TAB (IMMEDIATE RELEASE) PO PRN ×3 (05:01→23:20)
[2021-05-10] MEDS: RASPBERRY SYRUP 5 ML UDP PO SCH ×4 (05:23→23:20)
[2021-05-10] MEDS: LEVOTHYROXINE SODIUM 175 MCG TABLET PO SCH (05:23)
[2021-05-10] MEDS: VANCOMYCIN HCL 125 MG/2.5ML SOLN PO SCH ×4 (05:23→23:20)
[2021-05-10] MEDS: PIPERACILLIN/TAZOBACTAM 4.5 GM in DEXTROSE 5% 100 ML IV SCH ×3 (05:24→20:49)
[2021-05-10 07:02] LABS: Creatinine Clr Calc Pharmacy 94.1 ml/min; Est GFR (African American) 106.7 ml/min; Est GFR (Non-African American) 92.1 ml/min
[2021-05-10] MEDS: CALCITRIOL 0.25 MCG CAPSULE PO SCH (08:55)
[2021-05-10] MEDS: CLOPIDOGREL BISULFATE 75 MG TAB PO SCH (08:55)
[2021-05-10] MEDS: PANTOprazole 40 MG TAB PO SCH (08:55)
[2021-05-10] MEDS: ENOXAPARIN INJ 40 MG/0.4 ML SYR SQ SCH (08:55)
[2021-05-10] MEDS: METOPROLOL TARTRATE 25 MG TAB PO SCH ×2 (08:55→20:13)
[2021-05-10] MEDS: FOLIC ACID 1 MG TAB PO SCH (08:55)
[2021-05-10] MEDS: SENNA 8.6 MG TAB PO SCH (08:55)
[2021-05-10] MEDS: CHLORTHALIDONE 25 MG TAB PO SCH (08:55)
[2021-05-10] MEDS: ASPIRIN 81 MG ECTAB PO SCH (08:55)
[2021-05-10] MEDS: HYDROCORTISONE HC 2.5% CRM 30GM TUBE EXT SCH ×2 (08:56→20:14)
[2021-05-10] MEDS: NovoLOG INSULIN PUMP SCH (09:00)
[2021-05-10] MEDS: POTASSIUM CHLORIDE CRTAB 20 MEQ TABCR PO SCH ×2 (09:45→20:14)
[2021-05-10] MEDS ORDERED: INSULIN ASPART 100 UNITS/ML 3 ML PEN SC ONE (10:15)
[2021-05-10] MEDS ORDERED: INSULIN GLARGINE SOLOSTAR 100 UNITS/ML 3 ML PEN SC STA (10:21)
[2021-05-10] MEDS: INSULIN ASPART 100 UNITS/ML 3 ML PEN SC SCH ×3 (12:47→20:48)
--- NOTE | 2021-05-10 14:41 | Hospitalist Progress Note ---
Date of Service May 10, 2021 Assessment & Plan (1) Proctitis: Plan: CT a/p on 05/04 showed "mild rectal wall thickening with associated perirectal fat stranding" consistent with proctitis. Ddx includes infection, stercoral colitis, or IBD. Infection seems less likely given he is on Zosyn; however, he does have a leukocytosis. - Continue Zosyn for the treatment osteomyelitis C. difficile positive started on vancomycin, treat for 14 days Proctitis he could not tolerate the insertion of B&O suppository - GI consulted recommend outpatient colonoscopy (2) Constipation: Plan: Reports not having a BM for up to 5 days, but then is having pasty BMs when he does. CT a/p on admission showed moderate stool burden. no with diarrhea, see below Interestingly C. difficile toxin and gene positive treated with vancomycin. (3) Osteomyelitis due to type 1 diabetes mellitus: Plan: Right heel. Known and chronic. [facility]. Will be on chronic Zosyn therapy until R. BKA. Follows with Dr. Soto. - Continue foot soaks with 1/3 saline, 1/3 betadine, and 1/[address] Soto's note dated 04/23/2021. 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 - Continue wound vac - Wound RN consulted (5) Diabetes type 1, controlled: Plan: A1c was 7.4% this month. Has his insulin pump on at time of admission. - pump came off today pharmacy added basal and bolus insulin (6) PAD (peripheral artery disease): Plan: Complex PAD with recent removal of right leg graft in 03/[address] Eason. - Continue ASA, Plavix, statin (7) CAD (coronary artery disease): Plan: S/p 1vCABG in 10/2015. - Continue ASA, Plavix - Continue beta-simi, statin (8) Hypertension: Plan: BP in the ED is 150/55. - Continue home beta-simi, chlorthalidone, and K+ supplement (9) CKD (chronic kidney disease) stage 2, GFR 60-89 ml/min: Plan: Baseline Cr ~0.9. Presently at baseline. - Monitor Cr; renally dose meds (10) Hypothyroidism: Plan: TSH was 0.9 in 04/2021. No signs/symptoms of hypo-/hyperthyroidism. - Continue home Synthroid 175 mcg (11) DVT prophylaxis: Plan: Lovenox 40 mg SQ daily Admission and Anticipated Discharge Date Admission Date: May 09, 2021 Subjective patient says he is moving his bowels, liquid BM he has rectal pain associated with moving his bowels and the pain persists after moving them he says this is better but still bothers him he is eating well, drinking prune juice, taking Senokot labs stable, chart reviewed, continues with treatment for ankle wound he says he will be ready to go home once pain is better Review of Systems Review of Systems: All systems reviewed & are unremarkable except as noted in Subjective Gastrointestinal: + diarrhea/loose stools and + constant urge to pass stools (pain with moving bowels); no abdominal pain, no nausea, no vomiting and no constipation Physical Exam Constitutional: well developed and well nourished; not ill appearing and + uncomfortable Neck: trachea midline, no thyromegaly Respiratory: normal respiratory effort, lungs clear to auscultation Cardiovascular: RRR, no murmur, no edema Gastrointestinal (Abdomen): normal bowel sounds, soft, nontender, no hepatosplenomegaly Musculoskeletal: no cyanosis or clubbing, extremities motor strength 5/5 Neurologic: CN's II-XI intact bilaterally, moves all extremities and awake; no focal motor deficits Psychiatric: A+Ox3, euthymic affect Results & Data Results & Data ([facility]) Vital Signs (Past 12 Hours) Vital Signs Temp Pulse Resp BP Pulse Ox 05/10/21 07:43 36.4 C L 73 16 141/56 H 96 Laboratory Results Laboratory Results - last 24 hr 05/09/21 05/09/21 05/10/21 17:19 20:25 06:01 Creatinine 0.85 Est Cr Clr Drug Dosing 94.1 Est GFR ( Amer) 106.7 Est GFR (Non-Af Amer) 92.1 POC Glucose 78 125 H 05/10/21 05/10/21 08:18 12:00 Creatinine Est Cr Clr Drug Dosing Est GFR ( Amer) Est GFR (Non-Af Amer) POC Glucose 180 H 173 H Medications Administered Current Inpatient Medications Acetaminophen (Acetaminophen 325 Mg Tab) 650 mg PO Q4H PRN PRN Reason: pain/fever Stop: 06/03/21 15:16 Last Admin: 05/09/21 02:22 Dose: 650 mg Documented by: Aspirin (Aspirin 81 Mg Ectab) 81 [facility] Stop: 06/04/21 08:59 Last Admin: 05/10/21 08:55 Dose: 81 mg Documented by: Atorvastatin Calcium (Atorvastatin 40 Mg Tab) 80 mg PO [facility] Stop: 06/03/21 20:59 Last Admin: 05/09/21 20:16 Dose: 80 mg Documented by: Belladonna Alkaloids/Opium (Belladonna/Opium Supp 60 Mg Supp) 60 mg UT Q6 PRN PRN Reason: rectal pain Stop: 05/20/21 15:38 Calcitriol (Calcitriol 0.25 Mcg Capsule) 0.25 mcg PO [facility] Stop: 06/04/21 08:59 Last Admin: 05/10/21 08:55 Dose: 0.25 mcg Documented by: Chlorthalidone (Chlorthalidone 25 Mg Tab) 25 mg PO [facility] Stop: 06/04/21 08:59 Last Admin: 05/10/21 08:55 Dose: 25 mg Documented by: Clopidogrel Bisulfate (Clopidogrel Bisulfate 75 Mg Tab) 75 mg PO [facility] Stop: 06/04/21 08:59 Last Admin: 05/10/21 08:55 Dose: 75 mg Documented by: Dextrose (Dextrose 50% 50 Ml Syringe) 25 - 50 ml IV UD PRN; Protocol PRN Reason: Hypoglycemia Protocol Stop: 06/03/21 15:16 Enoxaparin Sodium (Enoxaparin Inj 40 Mg/0.4 Ml Syr) 40 mg SQ [facility] Stop: 06/04/21 08:59 Last Admin: 05/10/21 08:55 Dose: 40 mg Documented by: Folic Acid (Folic Acid 1 Mg Tab) 1 mg PO [facility] Stop: 06/04/21 08:59 Last Admin: 05/10/21 08:55 Dose: 1 mg Documented by: Glucagon (Glucagon For Inj 1 Mg Vial) 1 mg SQ UD PRN; Protocol PRN Reason: Hypoglycemia Protocol Stop: 06/03/21 15:16 Glucose (Glucose 10 Tabs/Tube) 4 - 8 tabs PO UD PRN; Protocol PRN Reason: Hypoglycemia Protocol Stop: 06/03/21 15:16 Glucose (Glucose 40% Gel 15 Gm Tube) 15 - 30 gm PO UD PRN; Protocol PRN Reason: Hypoglycemia Protocol Stop: 06/03/21 15:16 Heparin Sodium (Beef Lung) (Heparin 10 Unit/Ml 5 Ml Flush) 5 ml FLUSH PRN PRN PRN Reason: Flush Stop: 06/04/21 03:25 Last Admin: 05/10/21 09:45 Dose: 5 ml Documented by: Hydrocortisone (Hydrocortisone Hc 2.5% Crm 30gm Tube) 1 appln EXT BID [facility] Stop: 06/03/21 20:59 Last Admin: 05/10/21 08:56 Dose: 1 appln Documented by: Piperacillin Sod/Tazobactam (Sod 4.5 gm/ Dextrose) 120 mls @ 30 mls/hr IV Q8H [facility]; Protocol Stop: 06/15/21 21:59 Last Admin: 05/10/21 14:22 Dose: 30 mls/hr Documented by: Insulin Aspart (Novolog Insulin Pump) 1 ea N/A [facility]; Protocol Stop: 06/03/21 17:29 Last Admin: 05/10/21 09:00 Dose: 1 ea Documented by: Insulin Aspart (Insulin Aspart 100 Units/Ml Vial) 0 units SC PRN PRN PRN Reason: REFILL Stop: 06/03/21 17:14 Insulin Aspart (Insulin Aspart 100 Units/Ml 3 Ml Pen) 0 units SC [facility]; Protocol Stop: 06/09/21 11:29 Last Admin: 05/10/21 12:47 Dose: 11 units Documented by: Levothyroxine Sodium (Levothyroxine Sodium 175 Mcg Tablet) 175 mcg PO DAILYBB [facility] Stop: 06/04/21 06:29 Last Admin: 05/10/21 05:23 Dose: 175 mcg Documented by: Metoprolol Tartrate (Metoprolol Tartrate 25 Mg Tab) 12.5 mg PO BID [facility] Stop: 06/03/21 20:59 Last Admin: 05/10/21 08:55 Dose: 12.5 mg Documented by: Miscellaneous (Carbohydrates For Hypoglycemia ) 15 - 30 gm PO UD PRN PRN Reason: Hypoglycemia Protocol Stop: 06/03/21 15:16 Miscellaneous Information (Pharmacy Glycemic Mgmt Consult) 1 ea N/A UD PRN; Protocol PRN Reason: Consult Stop: 06/03/21 15:16 Miscellaneous Information (Piperacill/Tazobac Consult Active) 1 ea N/A UD PRN PRN Reason: Consult Stop: 06/03/21 17:02 Morphine Sulfate (Morphine Sulfate 2 Mg/Ml Carp) 2 mg IV Q4 PRN PRN Reason: pain 2-6/10 Stop: 05/23/21 09:53 Ondansetron HCl (Ondansetron Inj 2 Mg/Ml 2 Ml Vial) 4 mg IV Q4H PRN PRN Reason: Nausea Stop: 06/03/21 15:16 Oxycodone HCl (Oxycodone Hcl Ir 5 Mg Tab (Immediate Release)) 5 mg PO TID PRN PRN Reason: Moderate Pain Stop: 05/18/21 15:16 Last Admin: 05/10/21 05:01 Dose: 5 mg Documented by: Oxycodone HCl (Oxycodone Hcl Ir 5 Mg Tab (Immediate Release)) 10 mg PO TID PRN PRN Reason: Severe Pain Stop: 05/18/21 15:16 Last Admin: 05/10/21 14:23 Dose: 10 mg Documented by: Pantoprazole Sodium (Pantoprazole 40 Mg Tab) 40 mg PO QAM [facility] Stop: 06/04/21 08:59 Last Admin: 05/10/21 08:55 Dose: 40 mg Documented by: Potassium Chloride (Potassium Chloride Crtab 20 Meq Tabcr) 20 meq PO BID [facility] Stop: 06/03/21 20:59 Last Admin: 05/10/21 09:45 Dose: 20 meq Documented by: Raspberry (Raspberry Syrup 5 Ml Udp) 5 ml PO Q6 [facility] Stop: 05/19/21 00:00 Last Admin: 05/10/21 13:04 Dose: 5 ml Documented by: Sennosides (Senna 8.6 Mg Tab) 8.6 mg PO QAM [facility] Stop: 06/09/21 08:59 Last Admin: 05/10/21 08:55 Dose: 8.6 mg Documented by: Vancomycin HCl (Vancomycin Hcl 125 Mg/2.5ml Soln) 125 mg PO Q6 [facility] Stop: 05/15/21 00:00 Last Admin: 05/10/21 13:05 Dose: 125 mg Documented by: PG Care Time/CCT Total # of Minutes Spent Total Time Spent with Patient: Total time spent is greater than 50% in coordination of care (as documented) at patient's floor/unit and/or counseling patient: Coding Level of Care Code 07430 Subseq Hosp Care Lvl 2 Diagnoses Proctitis K62.89 Constipation K59.00 Osteomyelitis due to type 1 diabetes mellitus E10.69; M86.9 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 transplanted heart: [place] heart Hypertension I10 Hypertension type: unspecified CKD (chronic kidney disease) stage 2, GFR 60-89 ml/min N18.2 Hypothyroidism E03.9 Hypothyroidism type: unspecified DVT prophylaxis Z29.9 (1) CAD (coronary artery disease) Associated angina: without angina Coronary Disease-Associated Artery/Lesion type: [place] artery [place] vs. transplanted heart: [place] heart Qualified Code(s): I25.10 - Atherosclerotic heart disease of [place] coronary artery without angina pectoris (2) Hypothyroidism Hypothyroidism type: unspecified Qualified Code(s): E03.9 - Hypothyroidism, unspecified (3) Hypertension Hypertension type: unspecified Qualified Code(s): I10 - Essential (primary) hypertension
--- NOTE | 2021-05-10 14:51 | Pharmacy Report ---
Pharmacy Glycemic Short Note 2 - Date of Service May 10, 2021 - Glycemic Short BSG Results (Last 24 hours): 05/09/21 05/09/21 05/10/21 17:19 20:25 08:18 POC Glucose 78 125 H 180 H 05/10/21 12:00 POC Glucose 173 H OUTPATIENT ANTIDIABETIC REGIMEN: * Novolog t:slim insulin pump * Goal Range: 80-200 mg/dL * Correction Factor: 30 mg/dL * Carbohydrate Ratio: 6 g * Basal Rate: 1.65 units/hr (~ 40 units/day) * HbA1c = 7.4% (04/23/21) ASSESSMENT: 05/10: * RN called this AM as patient's insulin pump came unconnected. Spoke with patient and he needs to have his daughter bring in more tubing supplies for pump. Confirmed insulin pump disconnected * Gave one time dose of Lantus 40 units x 1, will add small scale for HS (other admissions patient requires about ~50 units basal insulin) * Will utilize basal/bolus insulin today, will try and set pump back up tomorrow if patient has all supplies needed 05/07: * Patient received 114 units of insulin yesterday * 55 units basal + 59 units bolus * BSGs were uncontrolled: 430-030-53-130-206 mg/dL * Fasting BSG was 260 mg/dL this AM. * Was going to increase Lantus but patient had daughter bring in new supplies last evening and he wants to resume his home insulin pump. Despite hyperglycemia this morning, I agreed to allow patient to use pump since he had good control with pump earlier this admission. Explained that if hyperglycemia persists, then we may have to use basal-bolus. Pump was resumed around 0800 today. 05/06: * Ron was well controlled on his insulin pump yesterday * BSGs were: 726-499-211-84 mg/dL * Unfortunately, patient has no further pump supplies at home and has ran out of insulin. * This led to a fasting BSG of 221 mg/dL this AM * Will switch patient over to basal-bolus insulin regimen and remove pump * Dosing will be based on previous admission data 05/05: * 66 yo M admitted yesterday with proctitis and found to have C. difficile. Pharmacy was consulted to assist with inpatient glycemic management. Patient is well known to pharmacy glycemic service. He has requested to keep his pump on during admission. He is tolerating a type 1 diabetic diet. * BSGs yesterday: 80-82 mg/dL * Fasting BSG 105 mg/dL today. Lunch BSG was 127 mg/dL. * Spoke with patient and he does not have any supplies with him. States his daughter should be able to bring in more insulin but he's not sure if he has anymore sets at home. Set was just changed prior to admission. Informed patient that if no sets were brought in then we would have to transition to basal-bolus insulin. He agreed. Manipulated his pump to confirm settings today. PLAN FOR INPATIENT GLYCEMIC CONTROL: * See plan for today 05/10 - changed to basal/bolus as patient needs to bring in extra pump supplies PLAN FOR DISCHARGE: * HbA1c is at goal for this patient according to endocrinology notes. * No changes recommended at discharge. Continue to follow with [facility].
[2021-05-10] MEDS: ATORVASTATIN 40 MG TAB PO SCH (20:13)
[2021-05-10] MEDS ORDERED: INSULIN GLARGINE SOLOSTAR 100 UNITS/ML 3 ML PEN SC SCH (21:00)
[2021-05-11] MEDS: RASPBERRY SYRUP 5 ML UDP PO SCH ×4 (05:29→23:13)
[2021-05-11] MEDS: VANCOMYCIN HCL 125 MG/2.5ML SOLN PO SCH ×4 (05:29→23:13)
[2021-05-11] MEDS: LEVOTHYROXINE SODIUM 175 MCG TABLET PO SCH (05:29)
[2021-05-11] MEDS: PIPERACILLIN/TAZOBACTAM 4.5 GM in DEXTROSE 5% 100 ML IV SCH ×3 (05:30→21:18)
[2021-05-11] MEDS ORDERED: Nursing to Pharmacy Communication SCH (08:00)
[2021-05-11] MEDS: INSULIN ASPART 100 UNITS/ML 3 ML PEN SC SCH ×2 (09:19→12:05)
[2021-05-11 09:20] LABS: Creatinine Clr Calc Pharmacy 106.7 ml/min; Est GFR (African American) 112.4 ml/min; Est GFR (Non-African American) 96.9 ml/min
[2021-05-11] MEDS: HYDROCORTISONE HC 2.5% CRM 30GM TUBE EXT SCH ×2 (09:21→20:31)
[2021-05-11] MEDS: ENOXAPARIN INJ 40 MG/0.4 ML SYR SQ SCH (09:21)
[2021-05-11] MEDS: FOLIC ACID 1 MG TAB PO SCH (09:23)
[2021-05-11] MEDS: CALCITRIOL 0.25 MCG CAPSULE PO SCH (09:23)
[2021-05-11] MEDS: SENNA 8.6 MG TAB PO SCH (09:23)
[2021-05-11] MEDS: ASPIRIN 81 MG ECTAB PO SCH (09:23)
[2021-05-11] MEDS: METOPROLOL TARTRATE 25 MG TAB PO SCH ×2 (09:24→20:30)
[2021-05-11] MEDS: CHLORTHALIDONE 25 MG TAB PO SCH (09:24)
[2021-05-11] MEDS: CLOPIDOGREL BISULFATE 75 MG TAB PO SCH (09:25)
[2021-05-11] MEDS: PANTOprazole 40 MG TAB PO SCH (09:25)
[2021-05-11] MEDS: POTASSIUM CHLORIDE CRTAB 20 MEQ TABCR PO SCH ×2 (09:25→20:30)
[2021-05-11] MEDS: NovoLOG INSULIN PUMP SCH ×3 (13:19→20:31)
--- NOTE | 2021-05-11 16:13 | Hospitalist Progress Note ---
Date of Service May 11, 2021 Assessment & Plan (1) Proctitis: Plan: CT a/p on 05/04 showed "mild rectal wall thickening with associated perirectal fat stranding" consistent with proctitis. Ddx includes infection, stercoral colitis, or IBD. Infection seems less likely given he is on Zosyn; however, he does have a leukocytosis. - Continue Zosyn for the treatment osteomyelitis C. difficile positive started on vancomycin, treat for 14 days Proctitis he could not tolerate the insertion of B&O suppository - GI consulted recommend outpatient colonoscopy (2) Constipation: Plan: Reports not having a BM for up to 5 days, but then is having pasty BMs when he does. CT a/p on admission showed moderate stool burden. no with diarrhea, see below Interestingly C. difficile toxin and gene positive treated with vancomycin. no BM today, passing flatus (3) Osteomyelitis due to type 1 diabetes mellitus: Plan: Right heel. Known and chronic. Has been following with [facility]. Will be on chronic Zosyn therapy until R. BKA. Follows with Dr. Soto. - Continue foot soaks with 1/3 saline, 1/3 betadine, and 1/[address] Soto's note dated 04/23/2021. 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 - Continue wound vac - Wound RN consulted (5) Diabetes type 1, controlled: Plan: A1c was 7.4% this month. Has his insulin pump on at time of admission. - pump came off 05/10 pharmacy added basal and bolus insulin (6) PAD (peripheral artery disease): Plan: Complex PAD with recent removal of right leg graft in 03/[address] Eason. - Continue ASA, Plavix, statin (7) CAD (coronary artery disease): Plan: S/p 1vCABG in 10/2015. - Continue ASA, Plavix - Continue beta-simi, statin (8) Hypertension: Plan: BP in the ED is 150/55. - Continue home beta-simi, chlorthalidone, and K+ supplement (9) CKD (chronic kidney disease) stage 2, GFR 60-89 ml/min: Plan: Baseline Cr ~0.9. Presently at baseline. - Monitor Cr; renally dose meds (10) Hypothyroidism: Plan: TSH was 0.9 in 04/2021. No signs/symptoms of hypo-/hyperthyroidism. - Continue home Synthroid 175 mcg (11) DVT prophylaxis: Plan: Lovenox 40 mg SQ daily Admission and Anticipated Discharge Date Admission Date: May 09, 2021 Subjective patient doing a little better, still with rectal pain, hurt just passing flatus today no BM today, discussed with him that the Vancomycin should start to slow things down getting ankle wound soaked this afternoon he feels he might be ready to go home soon Review of Systems Review of Systems: All systems reviewed & are unremarkable except as noted in Subjective Physical Exam Constitutional: well developed and well nourished; not ill appearing and + uncomfortable Neck: trachea midline, no thyromegaly Respiratory: normal respiratory effort, lungs clear to auscultation Cardiovascular: RRR, no murmur, no edema Gastrointestinal (Abdomen): normal bowel sounds, soft, nontender, no hepatosplenomegaly Musculoskeletal: no cyanosis or clubbing, extremities motor strength 5/5 Neurologic: CN's II-XI intact bilaterally, moves all extremities and awake; no focal motor deficits Psychiatric: A+Ox3, euthymic affect Results & Data Results & Data ([facility]) Vital Signs (Past 12 Hours) Vital Signs Temp Pulse Resp BP Pulse Ox 05/11/21 15:42 37.0 C 75 16 119/65 95 05/11/21 08:05 36.6 C 72 16 138/75 95 Laboratory Results Laboratory Results - last 24 hr 05/10/21 05/10/21 05/11/21 17:08 20:35 08:04 Creatinine Est Cr Clr Drug Dosing Est GFR ( Amer) Est GFR (Non-Af Amer) POC Glucose 295 H 261 H 160 H 05/11/21 05/11/21 08:21 12:04 Creatinine 0.75 Est Cr Clr Drug Dosing 106.7 Est GFR ( Amer) 112.4 Est GFR (Non-Af Amer) 96.9 POC Glucose 154 H Medications Administered Current Inpatient Medications Acetaminophen (Acetaminophen 325 Mg Tab) 650 mg PO Q4H PRN PRN Reason: pain/fever Stop: 06/03/21 15:16 Last Admin: 05/09/21 02:22 Dose: 650 mg Documented by: Aspirin (Aspirin 81 Mg Ectab) 81 mg PO [facility] Stop: 06/04/21 08:59 Last Admin: 05/11/21 09:23 Dose: 81 mg Documented by: Atorvastatin Calcium (Atorvastatin 40 Mg Tab) 80 mg PO [facility] Stop: 06/03/21 20:59 Last Admin: 05/10/21 20:13 Dose: 80 mg Documented by: Belladonna Alkaloids/Opium (Belladonna/Opium Supp 60 Mg Supp) 60 mg DC Q6 PRN PRN Reason: rectal pain Stop: 05/20/21 15:38 Calcitriol (Calcitriol 0.25 Mcg Capsule) 0.25 mcg PO [facility] Stop: 06/04/21 08:59 Last Admin: 05/11/21 09:23 Dose: 0.25 mcg Documented by: Chlorthalidone (Chlorthalidone 25 Mg Tab) 25 mg PO [facility] Stop: 06/04/21 08:59 Last Admin: 05/11/21 09:24 Dose: 25 mg Documented by: Clopidogrel Bisulfate (Clopidogrel Bisulfate 75 Mg Tab) 75 mg PO [facility] Stop: 06/04/21 08:59 Last Admin: 05/11/21 09:25 Dose: 75 mg Documented by: Dextrose (Dextrose 50% 50 Ml Syringe) 25 - 50 ml IV UD PRN; Protocol PRN Reason: Hypoglycemia Protocol Stop: 06/03/21 15:16 Enoxaparin Sodium (Enoxaparin Inj 40 Mg/0.4 Ml Syr) 40 mg SQ [facility] Stop: 06/04/21 08:59 Last Admin: 05/11/21 09:21 Dose: 40 mg Documented by: Folic Acid (Folic Acid 1 Mg Tab) 1 mg PO [facility] Stop: 06/04/21 08:59 Last Admin: 05/11/21 09:23 Dose: 1 mg Documented by: Glucagon (Glucagon For Inj 1 Mg Vial) 1 mg SQ UD PRN; Protocol PRN Reason: Hypoglycemia Protocol Stop: 06/03/21 15:16 Glucose (Glucose 10 Tabs/Tube) 4 - 8 tabs PO UD PRN; Protocol PRN Reason: Hypoglycemia Protocol Stop: 06/03/21 15:16 Glucose (Glucose 40% Gel 15 Gm Tube) 15 - 30 gm PO UD PRN; Protocol PRN Reason: Hypoglycemia Protocol Stop: 06/03/21 15:16 Heparin Sodium (Beef Lung) (Heparin 10 Unit/Ml 5 Ml Flush) 5 ml FLUSH PRN PRN PRN Reason: Flush Stop: 06/04/21 03:25 Last Admin: 05/10/21 18:24 Dose: 5 ml Documented by: Hydrocortisone (Hydrocortisone Hc 2.5% Crm 30gm Tube) 1 appln EXT BID [facility] Stop: 06/03/21 20:59 Last Admin: 05/11/21 09:21 Dose: 1 appln Documented by: Piperacillin Sod/Tazobactam (Sod 4.5 gm/ Dextrose) 120 mls @ 30 mls/hr IV Q8H [facility]; Protocol Stop: 06/15/21 21:59 Last Admin: 05/11/21 13:20 Dose: 30 mls/hr Documented by: Insulin Aspart (Novolog Insulin Pump) 1 ea N/A [facility]; Protocol Stop: 06/03/21 17:29 Last Admin: 05/11/21 13:19 Dose: 1 ea Documented by: Insulin Aspart (Insulin Aspart 100 Units/Ml Vial) 0 units SC PRN PRN PRN Reason: REFILL Stop: 06/03/21 17:14 Levothyroxine Sodium (Levothyroxine Sodium 175 Mcg Tablet) 175 mcg PO DAILYBB [facility] Stop: 06/04/21 06:29 Last Admin: 05/11/21 05:29 Dose: 175 mcg Documented by: Metoprolol Tartrate (Metoprolol Tartrate 25 Mg Tab) 12.5 mg PO BID [facility] Stop: 06/03/21 20:59 Last Admin: 05/11/21 09:24 Dose: 12.5 mg Documented by: Miscellaneous (Carbohydrates For Hypoglycemia ) 15 - 30 gm PO UD PRN PRN Reason: Hypoglycemia Protocol Stop: 06/03/21 15:16 Miscellaneous Information (Pharmacy Glycemic Mgmt Consult) 1 ea N/A UD PRN; Protocol PRN Reason: Consult Stop: 06/03/21 15:16 Miscellaneous Information (Piperacill/Tazobac Consult Active) 1 ea N/A UD PRN PRN Reason: Consult Stop: 06/03/21 17:02 Morphine Sulfate (Morphine Sulfate 2 Mg/Ml Carp) 2 mg IV Q4 PRN PRN Reason: pain 2-6/10 Stop: 05/23/21 09:53 Ondansetron HCl (Ondansetron Inj 2 Mg/Ml 2 Ml Vial) 4 mg IV Q4H PRN PRN Reason: Nausea Stop: 06/03/21 15:16 Oxycodone HCl (Oxycodone Hcl Ir 5 Mg Tab (Immediate Release)) 5 mg PO TID PRN PRN Reason: Moderate Pain Stop: 05/18/21 15:16 Last Admin: 05/10/21 05:01 Dose: 5 mg Documented by: Oxycodone HCl (Oxycodone Hcl Ir 5 Mg Tab (Immediate Release)) 10 mg PO TID PRN PRN Reason: Severe Pain Stop: 05/18/21 15:16 Last Admin: 05/10/21 23:20 Dose: 10 mg Documented by: Pantoprazole Sodium (Pantoprazole 40 Mg Tab) 40 mg PO QAM [facility] Stop: 06/04/21 08:59 Last Admin: 05/11/21 09:25 Dose: 40 mg Documented by: Potassium Chloride (Potassium Chloride Crtab 20 Meq Tabcr) 20 meq PO BID [facility] Stop: 06/03/21 20:59 Last Admin: 05/11/21 09:25 Dose: 20 meq Documented by: Raspberry (Raspberry Syrup 5 Ml Udp) 5 ml PO Q6 [facility] Stop: 05/19/21 00:00 Last Admin: 05/11/21 13:21 Dose: 5 ml Documented by: Sennosides (Senna 8.6 Mg Tab) 8.6 mg PO QAM [facility] Stop: 06/09/21 08:59 Last Admin: 05/11/21 09:23 Dose: 8.6 mg Documented by: Vancomycin HCl (Vancomycin Hcl 125 Mg/2.5ml Soln) 125 mg PO Q6 [facility] Stop: 05/15/21 00:00 Last Admin: 05/11/21 13:20 Dose: 125 mg Documented by: PG Care Time/CCT Total # of Minutes Spent Total Time Spent with Patient: Total time spent is greater than 50% in coordination of care (as documented) at patient's floor/unit and/or counseling patient: Coding Level of Care Code 74160 Subseq Hosp Care Lvl 2 Diagnoses Proctitis K62.89 Constipation K59.00 Osteomyelitis due to type 1 diabetes mellitus E10.69; M86.9 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 transplanted heart: [place] heart Associated angina: without angina Hypertension I10 Hypertension type: unspecified CKD (chronic kidney disease) stage 2, GFR 60-89 ml/min N18.2 Hypothyroidism E03.9 Hypothyroidism type: unspecified DVT prophylaxis Z29.9 (1) CAD (coronary artery disease) Coronary Disease-Associated Artery/Lesion type: [place] artery [place] vs. transplanted heart: [place] heart Associated angina: without angina Qualified Code(s): I25.10 - Atherosclerotic heart disease of [place] coronary artery without angina pectoris (2) Hypertension Hypertension type: unspecified Qualified Code(s): I10 - Essential (primary) hypertension (3) Hypothyroidism Hypothyroidism type: unspecified Qualified Code(s): E03.9 - Hypothyroidism, unspecified
[2021-05-11] MEDS: oxyCODONE HCL IR 5 MG TAB (IMMEDIATE RELEASE) PO PRN (19:10)
[2021-05-11] MEDS: ATORVASTATIN 40 MG TAB PO SCH (20:30)
[2021-05-12] MEDS: VANCOMYCIN HCL 125 MG/2.5ML SOLN PO SCH ×4 (05:32→23:06)
[2021-05-12] MEDS: LEVOTHYROXINE SODIUM 175 MCG TABLET PO SCH (05:32)
[2021-05-12] MEDS: RASPBERRY SYRUP 5 ML UDP PO SCH ×4 (05:32→23:06)
[2021-05-12] MEDS: PIPERACILLIN/TAZOBACTAM 4.5 GM in DEXTROSE 5% 100 ML IV SCH ×3 (05:32→21:21)
--- NOTE | 2021-05-12 08:47 | Pharmacy Report ---
Pharmacy Glycemic Short Note 2 - Date of Service May 12, 2021 - Glycemic Short BSG Results (Last 24 hours): 05/11/21 05/11/21 05/11/21 12:04 17:51 20:09 POC Glucose 154 H 168 H 165 H 05/12/21 08:31 POC Glucose 84 OUTPATIENT ANTIDIABETIC REGIMEN: * Novolog t:slim insulin pump * Goal Range: 80-200 mg/dL * Correction Factor: 30 mg/dL * Carbohydrate Ratio: 6 g * Basal Rate: 1.65 units/hr (~ 40 units/day) * HbA1c = 7.4% (04/23/21) ASSESSMENT: 05/12: * Family was able to bring in pump supplies on 05/12. Patient reconnected his pump in the morning. Patient has demonstrated good glycemic control since then. Fasting BSG is at goal. Do not anticipate changes to insulin regimen today. 05/10: * RN called this AM as patient's insulin pump came unconnected. Spoke with patient and he needs to have his daughter bring in more tubing supplies for pump. Confirmed insulin pump disconnected * Gave one time dose of Lantus 40 units x 1, will add small scale for HS (other admissions patient requires about ~50 units basal insulin) * Will utilize basal/bolus insulin today, will try and set pump back up tomorrow if patient has all supplies needed 05/07: * Patient received 114 units of insulin yesterday * 55 units basal + 59 units bolus * BSGs were uncontrolled: [id number] mg/dL * Fasting BSG was 260 mg/dL this AM. * Was going to increase Lantus but patient had daughter bring in new supplies last evening and he wants to resume his home insulin pump. Despite hyperglycemia this morning, I agreed to allow patient to use pump since he had good control with pump earlier this admission. Explained that if hyperglycemia persists, then we may have to use basal-bolus. Pump was resumed around 0800 today. 05/06: * Ron was well controlled on his insulin pump yesterday * BSGs were: 380-967-202-84 mg/dL * Unfortunately, patient has no further pump supplies at home and has ran out of insulin. * This led to a fasting BSG of 221 mg/dL this AM * Will switch patient over to basal-bolus insulin regimen and remove pump * Dosing will be based on previous admission data 05/05: * 66 yo M admitted yesterday with proctitis and found to have C. difficile. Pharmacy was consulted to assist with inpatient glycemic management. Patient is well known to pharmacy glycemic service. He has requested to keep his pump on during admission. He is tolerating a type 1 diabetic diet. * BSGs yesterday: 80-82 mg/dL * Fasting BSG 105 mg/dL today. Lunch BSG was 127 mg/dL. * Spoke with patient and he does not have any supplies with him. States his daughter should be able to bring in more insulin but he's not sure if he has anymore sets at home. Set was just changed prior to admission. Informed patient that if no sets were brought in then we would have to transition to basal-bolus insulin. He agreed. Manipulated his pump to confirm settings today. PLAN FOR INPATIENT GLYCEMIC CONTROL: * Continue patients home insulin pump PLAN FOR DISCHARGE: * HbA1c is at goal for this patient according to endocrinology notes. * No changes recommended at discharge. Continue to follow with [facility] [place] [facility].
[2021-05-12] MEDS: NovoLOG INSULIN PUMP SCH ×4 (09:26→21:05)
[2021-05-12] MEDS: ASPIRIN 81 MG ECTAB PO SCH (09:27)
[2021-05-12] MEDS: PANTOprazole 40 MG TAB PO SCH (09:28)
[2021-05-12] MEDS: METOPROLOL TARTRATE 25 MG TAB PO SCH ×2 (09:28→21:04)
[2021-05-12] MEDS: CHLORTHALIDONE 25 MG TAB PO SCH (09:28)
[2021-05-12] MEDS: FOLIC ACID 1 MG TAB PO SCH (09:28)
[2021-05-12] MEDS: SENNA 8.6 MG TAB PO SCH (09:28)
[2021-05-12] MEDS: CALCITRIOL 0.25 MCG CAPSULE PO SCH (09:28)
[2021-05-12] MEDS: CLOPIDOGREL BISULFATE 75 MG TAB PO SCH (09:28)
[2021-05-12] MEDS: HYDROCORTISONE HC 2.5% CRM 30GM TUBE EXT SCH ×2 (09:29→21:04)
[2021-05-12] MEDS: POTASSIUM CHLORIDE CRTAB 20 MEQ TABCR PO SCH ×2 (09:29→21:03)
[2021-05-12] MEDS: ENOXAPARIN INJ 40 MG/0.4 ML SYR SQ SCH (09:37)
--- NOTE | 2021-05-12 15:14 | Hospitalist Progress Note ---
Date of Service May 12, 2021 Assessment & Plan (1) Proctitis: Plan: CT a/p on 05/04 showed "mild rectal wall thickening with associated perirectal fat stranding" consistent with proctitis. Ddx includes infection, stercoral colitis, or IBD. Infection seems less likely given he is on Zosyn; however, he does have a leukocytosis. - Continue Zosyn for the treatment osteomyelitis C. difficile positive started on vancomycin, treat for 14 days Proctitis he could not tolerate the insertion of B&O suppository - GI consulted recommend outpatient colonoscopy less pain past few days, he think he can manage this pain at home, plan to discharge in the morning (2) Constipation: Plan: Interestingly C. difficile toxin and gene positive treated with vancomycin. resolved, now having loose stools (3) Osteomyelitis due to type 1 diabetes mellitus: Plan: Right heel. Known and chronic. Has been following with [facility]. Will be on chronic Zosyn therapy until R. BKA. Follows with Dr. Soto. - Continue foot soaks with 1/3 saline, 1/3 betadine, and 1/[address] Soto's note dated 04/23/2021. 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 - Continue wound vac - Wound RN consulted (5) Diabetes type 1, controlled: Plan: A1c was 7.4% this month. Has his insulin pump on at time of admission. - pump came off 05/10 pharmacy added basal and bolus insulin (6) PAD (peripheral artery disease): Plan: Complex PAD with recent removal of right leg graft in 03/[address] Eason. - Continue ASA, Plavix, statin (7) CAD (coronary artery disease): Plan: S/p 1vCABG in 10/2015. - Continue ASA, Plavix - Continue beta-simi, statin (8) Hypertension: Plan: BP in the ED is 150/55. - Continue home beta-simi, chlorthalidone, and K+ supplement (9) CKD (chronic kidney disease) stage 2, GFR 60-89 ml/min: Plan: Baseline Cr ~0.9. Presently at baseline. - Monitor Cr; renally dose meds (10) Hypothyroidism: Plan: TSH was 0.9 in 04/2021. No signs/symptoms of hypo-/hyperthyroidism. - Continue home Synthroid 175 mcg (11) DVT prophylaxis: Plan: Lovenox 40 mg SQ daily Admission and Anticipated Discharge Date Admission Date: May 09, 2021 Subjective patient doing well, less pain wound vac removed today, no need to continue per wound RN patient eating well having BM today, will stop the Senokot he thinks he would be ready to go home tomorrow Review of Systems Review of Systems: All systems reviewed & are unremarkable except as noted in Subjective Gastrointestinal: + diarrhea/loose stools (rectal pain); no abdominal pain, no nausea, no vomiting and no constipation Physical Exam Constitutional: well developed and well nourished; not ill appearing and + uncomfortable Neck: trachea midline, no thyromegaly Respiratory: normal respiratory effort, lungs clear to auscultation Cardiovascular: RRR, no murmur, no edema Gastrointestinal (Abdomen): normal bowel sounds, soft, nontender, no hepatosplenomegaly Musculoskeletal: no cyanosis or clubbing, extremities motor strength 5/5 Neurologic: CN's II-XI intact bilaterally, moves all extremities and awake; no focal motor deficits Psychiatric: A+Ox3, euthymic affect Results & Data Results & Data ([facility]) Vital Signs (Past 12 Hours) Vital Signs Temp Pulse Resp BP Pulse Ox 05/12/21 07:05 36.7 C 78 18 127/72 96 Laboratory Results Laboratory Results - last 24 hr 05/11/21 05/11/21 05/12/21 17:51 20:09 08:31 POC Glucose 168 H 165 H 84 05/12/21 12:14 POC Glucose 123 H Medications Administered Current Inpatient Medications Acetaminophen (Acetaminophen 325 Mg Tab) 650 mg PO Q4H PRN PRN Reason: pain/fever Stop: 06/03/21 15:16 Last Admin: 05/09/21 02:22 Dose: 650 mg Documented by: Aspirin (Aspirin 81 Mg Ectab) 81 mg PO QAM [facility] Stop: 06/04/21 08:59 Last Admin: 05/12/21 09:27 Dose: 81 mg Documented by: Atorvastatin Calcium (Atorvastatin 40 Mg Tab) 80 mg PO HS LIZZY Stop: 06/03/21 20:59 Last Admin: 05/11/21 20:30 Dose: 80 mg Documented by: Belladonna Alkaloids/Opium (Belladonna/Opium Supp 60 Mg Supp) 60 mg OR Q6 PRN PRN Reason: rectal pain Stop: 05/20/21 15:38 Calcitriol (Calcitriol 0.25 Mcg Capsule) 0.25 mcg PO QAM [facility] Stop: 06/04/21 08:59 Last Admin: 05/12/21 09:28 Dose: 0.25 mcg Documented by: Chlorthalidone (Chlorthalidone 25 Mg Tab) 25 mg PO QAM [facility] Stop: 06/04/21 08:59 Last Admin: 05/12/21 09:28 Dose: 25 mg Documented by: Clopidogrel Bisulfate (Clopidogrel Bisulfate 75 Mg Tab) 75 mg PO QAM [facility] Stop: 06/04/21 08:59 Last Admin: 05/12/21 09:28 Dose: 75 mg Documented by: Dextrose (Dextrose 50% 50 Ml Syringe) 25 - 50 ml IV UD PRN; Protocol PRN Reason: Hypoglycemia Protocol Stop: 06/03/21 15:16 Enoxaparin Sodium (Enoxaparin Inj 40 Mg/0.4 Ml Syr) [facility] Stop: 06/04/21 08:59 Last Admin: 05/12/21 09:37 Dose: 40 mg Documented by: Folic Acid (Folic Acid 1 Mg Tab) 1 mg PO QAM [facility] Stop: 06/04/21 08:59 Last Admin: 05/12/21 09:28 Dose: 1 mg Documented by: Glucagon (Glucagon For Inj 1 Mg Vial) 1 mg SQ UD PRN; Protocol PRN Reason: Hypoglycemia Protocol Stop: 06/03/21 15:16 Glucose (Glucose 10 Tabs/Tube) 4 - 8 tabs PO UD PRN; Protocol PRN Reason: Hypoglycemia Protocol Stop: 06/03/21 15:16 Glucose (Glucose 40% Gel 15 Gm Tube) 15 - 30 gm PO UD PRN; Protocol PRN Reason: Hypoglycemia Protocol Stop: 06/03/21 15:16 Heparin Sodium (Beef Lung) (Heparin 10 Unit/Ml 5 Ml Flush) 5 ml FLUSH PRN PRN PRN Reason: Flush Stop: 06/04/21 03:25 Last Admin: 05/10/21 18:24 Dose: 5 ml Documented by: Hydrocortisone (Hydrocortisone Hc 2.5% Crm 30gm Tube) 1 appln EXT BID [facility] Stop: 06/03/21 20:59 Last Admin: 05/12/21 09:29 Dose: 1 appln Documented by: Piperacillin Sod/Tazobactam (Sod 4.5 gm/ Dextrose) 120 mls @ 30 mls/hr IV Q8H [facility]; Protocol Stop: 06/15/21 21:59 Last Admin: 05/12/21 12:50 Dose: 30 mls/hr Documented by: Insulin Aspart (Novolog Insulin Pump) 1 ea N/A ACHS [facility]; Protocol Stop: 06/03/21 17:29 Last Admin: 05/12/21 14:18 Dose: 1 ea Documented by: Insulin Aspart (Insulin Aspart 100 Units/Ml Vial) 0 units SC PRN PRN PRN Reason: REFILL Stop: 06/03/21 17:14 Levothyroxine Sodium (Levothyroxine Sodium 175 Mcg Tablet) 175 mcg PO DAILYBB [facility] Stop: 06/04/21 06:29 Last Admin: 05/12/21 05:32 Dose: 175 mcg Documented by: Metoprolol Tartrate (Metoprolol Tartrate 25 Mg Tab) 12.5 mg PO BID [facility] Stop: 06/03/21 20:59 Last Admin: 05/12/21 09:28 Dose: 12.5 mg Documented by: Miscellaneous (Carbohydrates For Hypoglycemia ) 15 - 30 gm PO UD PRN PRN Reason: Hypoglycemia Protocol Stop: 06/03/21 15:16 Miscellaneous Information (Pharmacy Glycemic Mgmt Consult) 1 ea N/A UD PRN; Protocol PRN Reason: Consult Stop: 06/03/21 15:16 Miscellaneous Information (Piperacill/Tazobac Consult Active) 1 ea N/A UD PRN PRN Reason: Consult Stop: 06/03/21 17:02 Morphine Sulfate (Morphine Sulfate 2 Mg/Ml Carp) 2 mg IV Q4 PRN PRN Reason: pain 2-6/10 Stop: 05/23/21 09:53 Ondansetron HCl (Ondansetron Inj 2 Mg/Ml 2 Ml Vial) 4 mg IV Q4H PRN PRN Reason: Nausea Stop: 06/03/21 15:16 Oxycodone HCl (Oxycodone Hcl Ir 5 Mg Tab (Immediate Release)) 5 mg PO TID PRN PRN Reason: Moderate Pain Stop: 05/18/21 15:16 Last Admin: 05/10/21 05:01 Dose: 5 mg Documented by: Oxycodone HCl (Oxycodone Hcl Ir 5 Mg Tab (Immediate Release)) 10 mg PO TID PRN PRN Reason: Severe Pain Stop: 05/18/21 15:16 Last Admin: 05/11/21 19:10 Dose: 10 mg Documented by: Pantoprazole Sodium (Pantoprazole 40 Mg Tab) 40 mg PO QAM LIZZ[facility] Stop: 06/04/21 08:59 Last Admin: 05/12/21 09:28 Dose: 40 mg Documented by: Potassium Chloride (Potassium Chloride Crtab 20 Meq Tabcr) 20 meq PO BID [facility] Stop: 06/03/21 20:59 Last Admin: 05/12/21 09:29 Dose: 20 meq Documented by: Raspberry (Raspberry Syrup 5 Ml Udp) 5 ml PO Q6 [facility] Stop: 05/19/21 00:00 Last Admin: 05/12/21 12:51 Dose: 5 ml Documented by: Sennosides (Senna 8.6 Mg Tab) 8.6 mg PO QAM [facility] Stop: 06/09/21 08:59 Last Admin: 05/12/21 09:28 Dose: 8.6 mg Documented by: Vancomycin HCl (Vancomycin Hcl 125 Mg/2.5ml Soln) 125 mg PO Q6 [facility] Stop: 05/15/21 00:00 Last Admin: 05/12/21 12:50 Dose: 125 mg Documented by: PG Care Time/CCT Total # of Minutes Spent Total Time Spent with Patient: Total time spent is greater than 50% in coordination of care (as documented) at patient's floor/unit and/or counseling patient: Coding Level of Care Code 76513 Subseq Hosp Care Lvl 2 Diagnoses Proctitis K62.89 Constipation K59.00 Osteomyelitis due to type 1 diabetes mellitus E10.69; M86.9 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 transplanted heart: [place] heart Associated angina: without angina Hypertension I10 Hypertension type: unspecified CKD (chronic kidney disease) stage 2, GFR 60-89 ml/min N18.2 Hypothyroidism E03.9 Hypothyroidism type: unspecified DVT prophylaxis Z29.9 (1) CAD (coronary artery disease) Coronary Disease-Associated Artery/Lesion type: [place] artery [place] vs. transplanted heart: [place] heart Associated angina: without angina Qualified Code(s): I25.10 - Atherosclerotic heart disease of [place] coronary artery without angina pectoris (2) Hypertension Hypertension type: unspecified Qualified Code(s): I10 - Essential (primary) hypertension (3) Hypothyroidism Hypothyroidism type: unspecified Qualified Code(s): E03.9 - Hypothyroidism, unspecified
[2021-05-12] MEDS: ATORVASTATIN 40 MG TAB PO SCH (21:03)
[2021-05-13] MEDS: oxyCODONE HCL IR 5 MG TAB (IMMEDIATE RELEASE) PO PRN ×2 (00:12→13:30)
[2021-05-13] MEDS: PIPERACILLIN/TAZOBACTAM 4.5 GM in DEXTROSE 5% 100 ML IV SCH ×2 (06:03→13:11)
[2021-05-13] MEDS: RASPBERRY SYRUP 5 ML UDP PO SCH ×3 (06:03→17:18)
[2021-05-13] MEDS: VANCOMYCIN HCL 125 MG/2.5ML SOLN PO SCH ×3 (06:03→17:18)
[2021-05-13] MEDS: LEVOTHYROXINE SODIUM 175 MCG TABLET PO SCH (06:04)
[2021-05-13] MEDS: SENNA 8.6 MG TAB PO SCH (07:15)
[2021-05-13] MEDS: NovoLOG INSULIN PUMP SCH ×2 (09:01→13:11)
[2021-05-13] MEDS: FOLIC ACID 1 MG TAB PO SCH (09:02)
[2021-05-13] MEDS: PANTOprazole 40 MG TAB PO SCH (09:02)
[2021-05-13] MEDS: ASPIRIN 81 MG ECTAB PO SCH (09:03)
[2021-05-13] MEDS: CHLORTHALIDONE 25 MG TAB PO SCH (09:03)
[2021-05-13] MEDS: POTASSIUM CHLORIDE CRTAB 20 MEQ TABCR PO SCH (09:03)
[2021-05-13] MEDS: CLOPIDOGREL BISULFATE 75 MG TAB PO SCH (09:03)
[2021-05-13] MEDS: METOPROLOL TARTRATE 25 MG TAB PO SCH (09:03)
[2021-05-13] MEDS: CALCITRIOL 0.25 MCG CAPSULE PO SCH (09:03)
[2021-05-13] MEDS: ENOXAPARIN INJ 40 MG/0.4 ML SYR SQ SCH (09:05)
[2021-05-13] MEDS: HYDROCORTISONE HC 2.5% CRM 30GM TUBE EXT SCH (09:05)
--- NOTE | 2021-05-13 13:34 | Pharmacy Report ---
Pharmacy Glycemic Short Note 2 - Date of Service May 13, 2021 - Glycemic Short BSG Results (Last 24 hours): 05/12/21 05/12/21 05/13/21 16:45 21:05 08:22 POC Glucose 169 H 264 H 323 H* 05/13/21 05/13/21 05/13/21 08:23 11:10 12:27 POC Glucose 307 H* 290 H 216 H OUTPATIENT ANTIDIABETIC REGIMEN: * Novolog t:slim insulin pump * Goal Range: 80-200 mg/dL * Correction Factor: 30 mg/dL * Carbohydrate Ratio: 6 g * Basal Rate: 1.65 units/hr (~ 40 units/day) * HbA1c = 7.4% (04/23/21) ASSESSMENT: 05/13: Pt with HYPERGLYCEMIA this AM. Discussed with patient- he did NOT eat prior to this BSG, his pump is working (no tubing kink or battery issues etc). Pt will correct per his pump and recheck in 2 hrs. Pt will continue to correct BSG per his pump settings until BSG < 180 05/12: * Family was able to bring in pump supplies on 05/12. Patient reconnected his pump in the morning. Patient has demonstrated good glycemic control since then. Fasting BSG is at goal. Do not anticipate changes to insulin regimen today. 05/10: * RN called this AM as patient's insulin pump came unconnected. Spoke with patient and he needs to have his daughter bring in more tubing supplies for pump. Confirmed insulin pump disconnected * Gave one time dose of Lantus 40 units x 1, will add small scale for HS (other admissions patient requires about ~50 units basal insulin) * Will utilize basal/bolus insulin today, will try and set pump back up tomorrow if patient has all supplies needed 05/07: * Patient received 114 units of insulin yesterday * 55 units basal + 59 units bolus * BSGs were uncontrolled: 530-897-44-130-206 mg/dL * Fasting BSG was 260 mg/dL this AM. * Was going to increase Lantus but patient had daughter bring in new supplies last evening and he wants to resume his home insulin pump. Despite hyperglycemia this morning, I agreed to allow patient to use pump since he had good control with pump earlier this admission. Explained that if hyperglycemia persists, then we may have to use basal-bolus. Pump was resumed around 00 today. 05/06: * Ron was well controlled on his insulin pump yesterday * BSGs were: [phone] mg/dL * Unfortunately, patient has no further pump supplies at home and has ran out of insulin. * This led to a fasting BSG of 221 mg/dL this AM * Will switch patient over to basal-bolus insulin regimen and remove pump * Dosing will be based on previous admission data 05/05: * 66 yo M admitted yesterday with proctitis and found to have C. difficile. Pharmacy was consulted to assist with inpatient glycemic management. Patient is well known to pharmacy glycemic service. He has requested to keep his pump on during admission. He is tolerating a type 1 diabetic diet. * BSGs yesterday: 80-82 mg/dL * Fasting BSG 105 mg/dL today. Lunch BSG was 127 mg/dL. * Spoke with patient and he does not have any supplies with him. States his daughter should be able to bring in more insulin but he's not sure if he has anymore sets at home. Set was just changed prior to admission. Informed patient that if no sets were brought in then we would have to transition to basal-bolus insulin. He agreed. Manipulated his pump to confirm settings today. PLAN FOR INPATIENT GLYCEMIC CONTROL: * Continue patients home insulin pump PLAN FOR DISCHARGE: * HbA1c is at goal for this patient according to endocrinology notes. * No changes recommended at discharge. Continue to follow with [facility] [place] [facility].
--- NOTE | 2021-05-14 12:49 | Discharge Summary ---
Date of Service May 13, 2021 Admission HPI Per Admitting Provider 66yo M w/ hx of PAD who presents with rectal pain and found to have proctitis. The patient had been recently admitted to [facility] with right heel osteomyelitis and a wound in the right ghotra. Plan is for R. BKA, but the wound needs to heel first. He had some constipation during the admission which improved with medication here. He reports that he did ok for a while, but about 2 weeks ago developed recurrent constipation and rectal pain. He reports that he can go upwards of 5 days without a BM. When he does, it is pasty and black. He has pain in the rectal/anal area with any sensation of gas or having to have a BM, and the BMs themselves are also quite painful. He denies any blood in the stool (hematochezia), denies any change in appetite (though he does report wanting to eat less due to concern for having to have a BM), denies n/v, denies f/c/ns, denies shortness of breath, denies cough, and denies other ROS. Principal Diagnosis C difficile infection, proctitis Discharge Exam Constitutional well developed and well nourished; not ill appearing and + uncomfortable Neck trachea midline, no thyromegaly Respiratory normal respiratory effort, lungs clear to auscultation Cardiovascular RRR, no murmur, no edema Gastrointestinal (Abdomen) normal bowel sounds, soft, nontender, no hepatosplenomegaly Musculoskeletal no cyanosis or clubbing, extremities motor strength 5/5 Neurologic CN's II-XI intact bilaterally, moves all extremities and awake; no focal motor deficits Psychiatric A+Ox3, euthymic affect Discharge Data Allergies Allergy/AdvReac Type Severity Reaction Status Date / Time No Known Allergies Allergy Unknown Verified 05/04/21 09:15 Consultations 05/04/21 10:27 ED Decision to Admit Stat 05/04/21 15:17 Consult Gastroenterology Routine Ordered Studies 05/04/21 07:58 CT abd pelvis IV con only Stat Hospital Course (1) Proctitis: CT a/p on 05/04 showed "mild rectal wall thickening with associated perirectal fat stranding" consistent with proctitis. Ddx includes infection, stercoral colitis, or IBD. Infection seems less likely given he is on Zosyn; however, he does have a leukocytosis. - Continue Zosyn for the treatment osteomyelitis C. difficile positive started on vancomycin, treat for 14 days Proctitis he could not tolerate the insertion of B&O suppository - GI consulted recommend outpatient colonoscopy less pain past few days, he think he can manage this pain at home, plan to discharge to home with home health, finish course of Vanco PO (2) Constipation: Interestingly C. difficile toxin and gene positive treated with vancomycin. resolved, now moving bowels 1-2x a day (3) Osteomyelitis due to type 1 diabetes mellitus: Right heel. Known and chronic. Has been following with [facility]. Will be on chronic Zosyn therapy until R. BKA. Follows with Dr. Soto. - Continue foot soaks with 1/3 saline, 1/3 betadine, and 1/[address] Soto's note dated 04/23/2021. 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 - Continue wound vac - Wound RN consulted (5) Diabetes type 1, controlled: A1c was 7.4% this month. Has his insulin pump on at time of admission. - continue insulin pump (6) PAD (peripheral artery disease): Complex PAD with recent removal of right leg graft in 03/[address] Eason. - Continue ASA, Plavix, statin (7) CAD (coronary artery disease): S/p 1vCABG in 10/2015. - Continue ASA, Plavix - Continue beta-simi, statin (8) Hypertension: BP stable - Continue home beta-simi, chlorthalidone, and K+ supplement (9) CKD (chronic kidney disease) stage 2, GFR 60-89 ml/min: Baseline Cr ~0.9. Presently at baseline. - Monitor Cr; renally dose meds (10) Hypothyroidism: TSH was 0.9 in 04/2021. No signs/symptoms of hypo-/hyperthyroidism. - Continue home Synthroid 175 mcg discharge to home with home health follow up with Dr. Soto as previously scheduled for osteomyelitis Total Time Total Time Spent Total Time Spent (In Minutes): 25 Total Time Includes: Examination of the Patient, Discharge Planning and Medication Reconciliation Discharge Plan Discharge Items Patient Disposition: Home - Home Health Services Reason For Visit: PROCTITIS Discharge Diagnosis: proctatitis C diff colitis osteomyelitis right foot poa on home antibiotics diabetes Condition on Discharge: Good Activity: Resume your previous activity Non-emergency contact: Surgeon and Specialist Call non-emergency contact if: your symptoms worsen Follow-up/Referrals: Enio Richards III, MD [Primary Care Provider] - 05/20/21 2:00 pm (KAREEN MARSH) Diet: Carb Consistent or DM2 Addtl Attending Provider Instructions: you need to complete all of the oral antibiotics to clear up your bowel issue consider eating yogurt (Activia is good option) or cottage cheese to help replenish the good bacteria in your bowel continue your iv antibiotics as you have been on previously, follow up with Dr Soto wound vac has been stopped you will need outpatient colonoscopy in several weeks, can be referred by Dr. Richards Pending Studies at Discharge: No Stand-Alone Forms: My Appetite+, Smoking Cessation Medications and DC Order Prescriptions: New vancomycin 125 mg capsule 125 mg PO Q6 Qty: 44 RF: 0 hydrocortisone [Proctosol HC] 2.5 % Cream With Perineal Applicator 1 applic EXT BID 10 Days Qty: 30 RF: 0 Continued Santyl 250 unit/gram ointment 1 applic topical DAILY 30 Days Qty: 30 RF: 2 pantoprazole [Protonix] 40 mg tablet,delayed release (DR/EC) 40 mg PO QAM Qty: 30 RF: 5 atorvastatin [Lipitor] 80 mg tablet 80 mg PO HS Qty: 90 RF: 3 insulin aspart U-100 [Novolog U-100 Insulin aspart] 100 unit/mL solution 60 unit SQ UD Qty: 20 RF: 5 chlorthalidone 25 mg tablet 25 mg PO QAM Qty: 30 RF: 5 clopidogrel [Plavix] 75 mg tablet 75 mg PO QAM Qty: 30 RF: 5 metoprolol tartrate 25 mg tablet 12.5 mg PO BID Qty: 90 RF: 3 potassium chloride 20 mEq tablet extended release 20 meq PO BID Qty: 60 RF: 5 calcitriol [Rocaltrol] 0.25 mcg capsule 0.25 mcg PO QAM Qty: 30 RF: 5 folic acid 1 mg Tablet 1 mg PO QAM Qty: 30 RF: 0 ferrous sulfate 325 mg (65 mg iron) Tablet,Delayed Release (Dr/Ec) 325 mg PO BID Qty: 60 RF: 0 levothyroxine [Synthroid] 175 mcg tablet 175 mcg PO DAILYBB RF: 0 aspirin [Aspirin Low Dose] 81 mg tablet,delayed release (DR/EC) 81 mg PO QAM RF: 0 Zosyn in dextrose (iso-osm) 4.5 gram/100 mL piggyback 4.5 g IV DAILY@2230 RF: 0 oxycodone 5 mg tablet 5 mg PO TID PRN (Reason: Pain) Qty: 30 RF: 0 Discharge Orders: Discharge Order (Routine); Ordered 05/13/21 Ordered By: Lazaro Morse/Other Patient Handouts: What Is C. Diff? 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 transplanted heart: [place] heart Hypertension I10 Hypertension type: unspecified CKD (chronic kidney disease) stage 2, GFR 60-89 ml/min N18.2 Hypothyroidism E03.9 Hypothyroidism type: unspecified
== END 2021-05-13 18:59 | disposition home health service (06) | DRG 394 ==
LOC: EDINP 07:27 → ED 07:27 → SUATTDRO 11:25 → EDINP 15:15 → 3N 21:50 → SUATTDRO 05-09 09:54 → 3W 05-12 19:28

== ENCOUNTER 2021-06-30 11:03 | Inpatient (IN) ==
[2021-06-30] MEDS ORDERED: PIPERACILL/TAZOBAC CONSULT ACTIVE PRN (12:15)
[2021-06-30] MEDS ORDERED: PIPERACILLIN/TAZOBACTAM 4.5 GM/120 ML BAG IV ONE (12:15)
--- NOTE | 2021-06-30 12:19 | Emergency Department Note ---
Impression & Plan Sepsis, Dry gangrene, Acute hyponatremia ED Provider Note NAME: BRANDON MOE Jr AGE: 66 SEX: M : 1955 ARRIVES VIA: Walk-In INFORMANT: Patient ED PROVIDER(S): Robert Langley DO CHIEF COMPLAINT: Fever and weak HPI: Patient is a 66-year-old male who presents the ER for fevers and weakness. He denies any headache or change in vision. No chest pain or shortness of breath. He admits to nausea and some episodes of vomiting. He notes that his foot has been deteriorating. He had vascular surgery on it which failed and notes that infection is getting worse. Admits to fevers. No other exacerbating or remitting factors. Redness in the leg is streaking up to the knee. ROS: See above HPI for pertinent positives & negatives. A total of 10 systems reviewed and were otherwise negative. PAST MEDICAL HISTORY:See Below PAST SURGICAL HISTORY:See Below FAMILY HISTORY:See Below SOCIAL HISTORY:See Below HOME MEDICATIONS:See Below ALLERGIES:See Below VITALS:See Below PHYSICAL EXAMINATION: GENERAL: Sitting up in bed, alert, well appearing, well nourished, no distress, non-toxic EYE EXAM: normal conjunctiva. PERRL and EOM's grossly intact. OROPHARYNX: no exudate, no erythema, lips, buccal mucosa, and tongue normal and mucous membranes are moist NECK: supple, no nuchal rigidity, no adenopathy, non-tender LUNGS: Clear to auscultation. Normal chest wall mechanics HEART: no murmurs, S1 normal and S2 normal ABDOMEN: abdomen soft, non-tender, normo-active bowel sounds, no masses, no rebound or guarding. UPPER EXTREMITIES: upper extremities are grossly normal. LOWER EXTREMITIES: Right foot with dry gangrene of the fifth digit. Erythema streaking up to mid ghotra. Necrosis around the base of the heel. Third and second digit with necrosis tracking up to PIP on plantar surface tracking centrally to the midfoot over the second MTP with necrosis present as well. NEURO EXAM: Normal sensorium, cranial nerves II-XII grossly intact, normal speech, no gross weakness of arms, no gross weakness of legs. MEDICAL DECISION MAKING: Patient is a 66-year-old male who presents the ER for fever and wounds in the right lower leg. Patient has been following with these for quite some time. IV was that was put on was obtained. Labs show leukocytosis 19,000. He has a cellulitis as well as gangrene right lower extremity. Platelets are slightly elevated. BMP with a mild hyponatremia. Potassium 3.3. Lactate was normal. Covid was negative. Patient was given IV antibiotics including Zosyn, clinda, and vancomycin. X-rays of the foot showed some air. Question nec fash versus ulcer. Patient was updated bedside and discussed with hospitalist for further evaluation. Discussed with orthopedics who will likely take the patient to the OR for amputation. Triage Nursing notes reviewed. Limited review of prior medical records performed Vital Signs: reviewed and remarkable for febrile and tachycardic Differential diagnosis: Differential diagnosis includes etiologies such as sepsis, UTI, pneumonia, metabolic, electrolyte abnormalities, cardiac sources, intracerebral event, toxicologic, neurological, as well as others were entertained. ER treatment provided: See below Diagnostics interpreted by me: ECG: Sinus rhythm rate 86 normal axis, right bundle branch block, QTC 507 Cardiac Monitoring: An order was placed for continuous cardiac monitoring. The monitor shows a rate of 90 with sinus rhythm. Laboratory studies: As stated above and show below. Imaging studies: Chest x-ray was unremarkable X-rays of the foot show questionable osteo and free air ulcer versus nec fac D/w ortho Dr. Xander Soto in the area who will likely amputate the foot. Consultation(s): Discussed with hospitalist for further evaluation Procedures: none Critical Care: I have personally spent 32 minutes of critical care time in the direct managem ent of this patient. This includes bedside care, interpretation of diagnostic studies, and testing, discussion with consultants, patient, and family members, and other required patient management activities. This 32 minutes is in excess of all separately billable procedures. Past Med/Surg History Medical History Acute proctitis Aortic stenosis s/p porcine valve replacement (2016) with CABG x 1 CAD (coronary artery disease) s/p CABG x 1 (2016) CKD (chronic kidney disease) stage 2, GFR 60-89 ml/min Clostridium difficile infection Diabetes mellitus type 1 + Insulin pump Diabetic nephropathy associated with type 1 diabetes mellitus Dyslipidemia GERD (gastroesophageal reflux disease) Hypertension Hypothyroidism Insulin pump in place Osteoarthritis Osteoporosis Proliferative diabetic retinopathy associated with type 1 diabetes mellitus PVD (peripheral vascular disease) s/p B/L iliac artery stents (2014), R common/external iliac (2017), R common femoral endarterectomy (11/2018) with bovine patch. Left femoral to PT composite bypass graft (06/2020) VRE infection (vancomycin resistant enterococcus), with multi-drug resistance Surgical History H/O cataract extraction R/L H/O endarterectomy R common femoral (11/2018) H/O vascular surgery Right Femoral to Posterior tibial Prosthetic Bypass Graft(Right) History of ankle surgery LEFT ANKLE +HARDWARE REMOVED History of aortic valve replacement 2016 [place] [place] History of arterial bypass of lower extremity Left femoral to PT composite bypass graft (06/2020) History of cardiac cath x2, most recent 2016 > no stents (subsequent CABG with AVR in 2015) History of carpal tunnel release R/L History of colonoscopy History of coronary artery bypass graft CABG x1 + AVR (2015) History of esophagogastroduodenoscopy (EGD) History of myringotomy History of open reduction and internal fixation (ORIF) procedure LLE () History of skin graft Split Thickness Skin Graft of Left Lateral Ankle (11/18/20): LMA#5, atraumatic x1 at [facility] History of tonsillectomy History of tooth extraction History of umbilical hernia repair Hx of surgical procedure Left Leg Wound Debridement and Irrigation S/P femoropopliteal bypass surgery Right fem-pop bypass graft (01/19/21): Grade 2 view, MAC 3.0, ETT 8.0 at [facility] S/P insertion of iliac artery stent B/L iliac stent placement (2014) 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 Family History Brother Family history of diabetes mellitus Sister Family history of diabetes mellitus Mother Family history of diabetes mellitus Grandmother (Maternal) Family history of diabetes mellitus Uncle Family hx of colon cancer Colorectal cancer Father Family history of esophageal cancer Sister Family history of diabetes mellitus Other No family history of adverse response to anesthesia Denies family history of Ovarian cancer Prostate cancer Myocardial infarction Breast cancer Social History Smoking Status: Never smoker Tobacco Type: Cigarettes and Smokeless Tobacco (Dip or Chew) Cigarettes Per Day: Quit 15 years ago; Second Hand Exposure: No; Hx Alcohol Use: No Hx Substance Use: No Preferred Language: Icelandic Communication Ability: Effective Visual Impairment: No Limitations Hearing Ability: Normal Superintendent House Required: No Beliefs That Will Affect Care: None marital status: Current Living Situation: Alone Current Living Situation Comment: with roommate How many Children do You have: 2 Feels Safe at Home: Yes Childhood Exposure to Second-Hand Smoke: Yes Diet Comment: Carb Counts. ([id number], roughly), protein drinks caffeine: Yes (coffee, rarely ) during the past year weight has: remained stable Dental Care, Regularly: No Physical Activity Frequency: 1-2 Times per Week Seatbelt Use: always Sunscreen Use: No Gender Identity: Male Assistive Devices: Denture - Upper Allergies Allergies Allergy/AdvReac Type Severity Reaction Status Date / Time No Known Allergies Allergy Unknown Verified 06/30/21 11:59 Home Meds Home Medications Medication Instructions Recorded Confirmed aspirin 81 mg tablet,delayed 81 mg PO QAM 05/04/21 06/30/21 release (Aspirin Low Dose) insulin aspart U-100 100 unit/mL 60 unit SQ CONT 06/30/21 06/30/21 subcutaneous solution (Novolog U-100 Insulin aspart) levothyroxine 175 mcg tablet 175 mcg PO QAM 06/30/21 06/30/21 (Synthroid) vancomycin 125 mg capsule 125 mg PO DIRECTED 06/30/21 06/30/21 Previous Rx's Medication Instructions Recorded atorvastatin 80 mg tablet (Lipitor) 80 mg PO HS #90 tab 11/25/20 clopidogrel 75 mg tablet (Plavix) 75 mg PO QAM #30 tab 01/28/21 metoprolol tartrate 25 mg tablet 12.5 mg PO BID #90 tab 02/09/21 potassium chloride 20 mEq 20 meq PO BID #60 tab 02/22/21 tablet,extended release ferrous sulfate 325 mg (65 mg 325 mg PO BID #60 tab 04/07/21 iron) tablet,delayed release folic acid 1 mg tablet 1 mg PO QAM #30 tab 04/07/21 calcitriol 0.25 mcg capsule 0.25 mcg PO QAM #30 cap 04/27/21 (Rocaltrol) oxycodone 5 mg tablet 5 mg PO TID PRN #30 tab 09/02/21 chlorthalidone 25 mg tablet 25 mg PO QAM #90 tab 05/19/21 hydrocortisone 2.5 % topical cream 1 applic EXT BID 10 Days #30 g 05/20/21 with perineal applicator (Proctosol HC) pantoprazole 40 mg tablet,delayed 40 mg PO QAM #30 tab 06/15/21 release (Protonix) Results & Data (ED) Vital Signs Vital Signs - 24 hr 06/30/21 11:14 06/30/21 12:14 06/30/21 12:15 Temperature 35.8 C L 38.8 C H Temperature Source Temporal Artery Scan Oral Pulse Rate 96 H 87 Pulse Rate [Right Finger] 81 Pulse Rate from SpO2 Sensor 87 Pulse Rhythm Regular Pulse Rhythm [Right Finger] Regular Pulse Strength Normal Pulse Strength [Right Finger] Normal Respiratory Rate 18 20 22 Respiratory Effort / Characteristics Non-Labored Spontaneous Non-Labored Respiratory Depth Normal Normal Respiratory Pattern Regular Blood Pressure 138/83 Blood Pressure [Right Arm] 122/64 Blood Pressure Mean 101 Blood Pressure Mean [Right Arm] 83 Blood Pressure Position Sitting Blood Pressure Position [Right Arm] Lying Pulse Oximetry 97 95 95 Oxygen Delivery Method Room Air Room Air Sepsis Recent Fever Within 48 Hours No Sepsis New/Unexplained Change in Mental Status N/A Sepsis Action Taken by Nursing No Action Required 06/30/21 12:41 06/30/21 12:44 06/30/21 12:50 Temperature Temperature Source Pulse Rate 110 H 84 Pulse Rate [Right Finger] Pulse Rate from SpO2 Sensor 84 Pulse Rhythm Pulse Rhythm [Right Finger] Pulse Strength Pulse Strength [Right Finger] Respiratory Rate 15 14 Respiratory Effort / Characteristics Non-Labored Respiratory Depth Respiratory Pattern Blood Pressure Blood Pressure [Right Arm] Blood Pressure Mean Blood Pressure Mean [Right Arm] Blood Pressure Position Blood Pressure Position [Right Arm] Pulse Oximetry 96 Oxygen Delivery Method Room Air Sepsis Recent Fever Within 48 Hours Sepsis New/Unexplained Change in Mental Status Sepsis Action Taken by Nursing 06/30/21 13:00 06/30/21 13:08 06/30/21 13:10 Temperature Temperature Source Pulse Rate 82 80 Pulse Rate [Right Finger] 81 Pulse Rate from SpO2 Sensor 82 80 Pulse Rhythm Pulse Rhythm [Right Finger] Regular Pulse Strength Pulse Strength [Right Finger] Normal Respiratory Rate 25 H 20 20 Respiratory Effort / Characteristics Non-Labored Respiratory Depth Normal Respiratory Pattern Regular Blood Pressure 136/54 L Blood Pressure [Right Arm] 136/54 L Blood Pressure Mean 81 Blood Pressure Mean [Right Arm] 81 Blood Pressure Position Blood Pressure Position [Right Arm] Lying Pulse Oximetry 95 96 94 Oxygen Delivery Method Room Air Sepsis Recent Fever Within 48 Hours Sepsis New/Unexplained Change in Mental Status Sepsis Action Taken by Nursing 06/30/21 13:20 06/30/21 13:30 06/30/21 13:40 Temperature Temperature Source Pulse Rate 80 81 83 Pulse Rate [Right Finger] Pulse Rate from SpO2 Sensor 80 81 79 Pulse Rhythm Pulse Rhythm [Right Finger] Pulse Strength Pulse Strength [Right Finger] Respiratory Rate 17 19 19 Respiratory Effort / Characteristics Respiratory Depth Respiratory Pattern Blood Pressure Blood Pressure [Right Arm] Blood Pressure Mean Blood Pressure Mean [Right Arm] Blood Pressure Position Blood Pressure Position [Right Arm] Pulse Oximetry 97 98 95 Oxygen Delivery Method Sepsis Recent Fever Within 48 Hours Sepsis New/Unexplained Change in Mental Status Sepsis Action Taken by Nursing 06/30/21 13:50 06/30/21 14:00 06/30/21 14:10 Temperature Temperature Source Pulse Rate 79 77 81 Pulse Rate [Right Finger] Pulse Rate from SpO2 Sensor 79 77 81 Pulse Rhythm Pulse Rhythm [Right Finger] Pulse Strength Pulse Strength [Right Finger] Respiratory Rate 16 17 21 Respiratory Effort / Characteristics Respiratory Depth Respiratory Pattern Blood Pressure 148/60 H Blood Pressure [Right Arm] Blood Pressure Mean 89 Blood Pressure Mean [Right Arm] Blood Pressure Position Blood Pressure Position [Right Arm] Pulse Oximetry 95 94 97 Oxygen Delivery Method Sepsis Recent Fever Within 48 Hours Sepsis New/Unexplained Change in Mental Status Sepsis Action Taken by Nursing 06/30/21 14:20 06/30/21 14:30 06/30/21 14:40 Temperature Temperature Source Pulse Rate 79 77 76 Pulse Rate [Right Finger] Pulse Rate from SpO2 Sensor 78 77 76 Pulse Rhythm Pulse Rhythm [Right Finger] Pulse Strength Pulse Strength [Right Finger] Respiratory Rate 18 19 22 Respiratory Effort / Characteristics Respiratory Depth Respiratory Pattern Blood Pressure Blood Pressure [Right Arm] Blood Pressure Mean Blood Pressure Mean [Right Arm] Blood Pressure Position Blood Pressure Position [Right Arm] Pulse Oximetry 95 96 95 Oxygen Delivery Method Sepsis Recent Fever Within 48 Hours Sepsis New/Unexplained Change in Mental Status Sepsis Action Taken by Nursing 06/30/21 14:50 06/30/21 15:00 06/30/21 15:10 Temperature Temperature Source Pulse Rate 76 83 76 Pulse Rate [Right Finger] Pulse Rate from SpO2 Sensor 76 76 76 Pulse Rhythm Pulse Rhythm [Right Finger] Pulse Strength Pulse Strength [Right Finger] Respiratory Rate 19 17 16 Respiratory Effort / Characteristics Respiratory Depth Respiratory Pattern Blood Pressure 121/59 L Blood Pressure [Right Arm] Blood Pressure Mean 79 Blood Pressure Mean [Right Arm] Blood Pressure Position Blood Pressure Position [Right Arm] Pulse Oximetry 94 95 97 Oxygen Delivery Method Sepsis Recent Fever Within 48 Hours Sepsis New/Unexplained Change in Mental Status Sepsis Action Taken by Nursing 06/30/21 15:20 06/30/21 15:30 06/30/21 15:40 Temperature Temperature Source Pulse Rate 76 76 76 Pulse Rate [Right Finger] Pulse Rate from SpO2 Sensor 78 77 77 Pulse Rhythm Pulse Rhythm [Right Finger] Pulse Strength Pulse Strength [Right Finger] Respiratory Rate 18 19 18 Respiratory Effort / Characteristics Respiratory Depth Respiratory Pattern Blood Pressure Blood Pressure [Right Arm] Blood Pressure Mean Blood Pressure Mean [Right Arm] Blood Pressure Position Blood Pressure Position [Right Arm] Pulse Oximetry 95 96 97 Oxygen Delivery Method Sepsis Recent Fever Within 48 Hours Sepsis New/Unexplained Change in Mental Status Sepsis Action Taken by Nursing 06/30/21 15:50 06/30/21 16:00 06/30/21 16:10 Temperature Temperature Source Pulse Rate 92 H 82 70 Pulse Rate [Right Finger] Pulse Rate from SpO2 Sensor 80 70 Pulse Rhythm Pulse Rhythm [Right Finger] Pulse Strength Pulse Strength [Right Finger] Respiratory Rate 18 20 16 Respiratory Effort / Characteristics Respiratory Depth Respiratory Pattern Blood Pressure Blood Pressure [Right Arm] Blood Pressure Mean Blood Pressure Mean [Right Arm] Blood Pressure Position Blood Pressure Position [Right Arm] Pulse Oximetry 94 95 Oxygen Delivery Method Sepsis Recent Fever Within 48 Hours Sepsis New/Unexplained Change in Mental Status Sepsis Action Taken by Nursing 06/30/21 16:20 Temperature Temperature Source Pulse Rate 70 Pulse Rate [Right Finger] Pulse Rate from SpO2 Sensor 70 Pulse Rhythm Pulse Rhythm [Right Finger] Pulse Strength Pulse Strength [Right Finger] Respiratory Rate 19 Respiratory Effort / Characteristics Respiratory Depth Respiratory Pattern Blood Pressure Blood Pressure [Right Arm] Blood Pressure Mean Blood Pressure Mean [Right Arm] Blood Pressure Position Blood Pressure Position [Right Arm] Pulse Oximetry 93 Oxygen Delivery Method Sepsis Recent Fever Within 48 Hours Sepsis New/Unexplained Change in Mental Status Sepsis Action Taken by Nursing Laboratory Data Result diagrams: 06/30/21 12:24 06/30/21 15:09 Lab Results 06/30/21 06/30/21 06/30/21 Range/Units 12:24 12:24 12:24 WBC 19.19 H (4.8-10.8) K/uL RBC 4.66 L (4.7-6.1) M/uL Hgb 12.0 L (14.0-18.0) g/dL Hct 36.9 L (42-52) % MCV 79.2 L (80-100) fL MCH 25.8 (25-34) pg MCHC 32.5 (32-36) g/dL RDW Std Deviation 45.7 (36.4-46.3) fL RDW Coeff of Chan 15.7 H (11.5-14.5) % Plt Count 548 H (130-400) K/uL MPV 8.9 (7.4-10.4) fL Immature Gran % (Auto) 0.3 % Neut % (Auto) 87.6 % Lymph % (Auto) 4.0 % Todd % (Auto) 8.0 % Eos % (Auto) 0.0 % Baso % (Auto) 0.1 % Neut # (Auto) 16.81 H (1.4-6.5) K/uL Lymph # (Auto) 0.77 L (1.2-3.4) K/uL Todd # (Auto) 1.54 H (0.11-0.59) K/uL Eos # (Auto) 0.00 (0-0.5) K/uL Baso # (Auto) 0.01 (0-0.2) K/uL Immature Gran # (Auto) 0.06 H (0.00-0.02) K/uL PT 11.6 (9.0-12.0) Seconds INR 1.2 H (0.9-1.1) APTT 27.8 (21.0-31.0) Seconds PTT Ratio 1.1 Sodium 126 L (136-145) mmol/L Potassium 3.3 L (3.5-5.1) mmol/L Chloride 86 L (98-107) mmol/L Carbon Dioxide 31 (21-32) mmol/L Anion Gap 10.0 (3-11) BUN 15 (7-18) mg/dl Creatinine 1.13 (0.6-1.4) mg/dl Est Cr Clr Drug Dosing Not Reportable Est GFR ( Amer) 79.2 ml/min Est GFR (Non-Af Amer) 68.3 ml/min BUN/Creatinine Ratio 12.8 (10-20) Glucose 146 H (70-99) mg/dl Lactate (0.4-2.0) mmol/L Calcium 9.2 (8.5-10.1) mg/dl Magnesium 1.9 (1.8-2.4) mg/dl Total Bilirubin 1.1 H (0.2-1) mg/dl AST 21 (15-37) U/L ALT 16 (12-78) U/L Alkaline Phosphatase 150 H (45-117) U/L Total Protein 9.2 H (6.4-8.2) gm/dl Albumin 2.3 L (3.4-5.0) gm/dl Globulin 6.9 H (2.5-4.0) gm/dl Albumin/Globulin Ratio 0.3 L (0.9-2) COVID-19 Eval Order SARS-CoV-2 (PCR) (Negative) 06/30/21 06/30/21 06/30/21 Range/Units 12:24 12:25 12:25 WBC (4.8-10.8) K/uL RBC (4.7-6.1) M/uL Hgb (14.0-18.0) g/dL Hct (42-52) % MCV (80-100) fL MCH (25-34) pg MCHC (32-36) g/dL RDW Std Deviation (36.4-46.3) fL RDW Coeff of Chan (11.5-14.5) % Plt Count (130-400) K/uL MPV (7.4-10.4) fL Immature Gran % (Auto) % Neut % (Auto) % Lymph % (Auto) % Todd % (Auto) % Eos % (Auto) % Baso % (Auto) % Neut # (Auto) (1.4-6.5) K/uL Lymph # (Auto) (1.2-3.4) K/uL Todd # (Auto) (0.11-0.59) K/uL Eos # (Auto) (0-0.5) K/uL Baso # (Auto) (0-0.2) K/uL Immature Gran # (Auto) (0.00-0.02) K/uL PT (9.0-12.0) Seconds INR (0.9-1.1) APTT (21.0-31.0) Seconds PTT Ratio Sodium (136-145) mmol/L Potassium (3.5-5.1) mmol/L Chloride (98-107) mmol/L Carbon Dioxide (21-32) mmol/L Anion Gap (3-11) BUN (7-18) mg/dl Creatinine (0.6-1.4) mg/dl Est Cr Clr Drug Dosing Est GFR ( Amer) ml/min Est GFR (Non-Af Amer) ml/min BUN/Creatinine Ratio (10-20) Glucose (70-99) mg/dl Lactate 1.4 (0.4-2.0) mmol/L Calcium (8.5-10.1) mg/dl Magnesium (1.8-2.4) mg/dl Total Bilirubin (0.2-1) mg/dl AST (15-37) U/L ALT (12-78) U/L Alkaline Phosphatase (45-117) U/L Total Protein (6.4-8.2) gm/dl Albumin (3.4-5.0) gm/dl Globulin (2.5-4.0) gm/dl Albumin/Globulin Ratio (0.9-2) COVID-19 Eval Order Covid19 at [facility] SARS-CoV-2 (PCR) NEGATIVE (Negative) 06/30/21 Range/Units 15:09 WBC (4.8-10.8) K/uL RBC (4.7-6.1) M/uL Hgb (14.0-18.0) g/dL Hct (42-52) % MCV (80-100) fL MCH (25-34) pg MCHC (32-36) g/dL RDW Std Deviation (36.4-46.3) fL RDW Coeff of Chan (11.5-14.5) % Plt Count (130-400) K/uL MPV (7.4-10.4) fL Immature Gran % (Auto) % Neut % (Auto) % Lymph % (Auto) % Todd % (Auto) % Eos % (Auto) % Baso % (Auto) % Neut # (Auto) (1.4-6.5) K/uL Lymph # (Auto) (1.2-3.4) K/uL Todd # (Auto) (0.11-0.59) K/uL Eos # (Auto) (0-0.5) K/uL Baso # (Auto) (0-0.2) K/uL Immature Gran # (Auto) (0.00-0.02) K/uL PT (9.0-12.0) Seconds INR (0.9-1.1) APTT (21.0-31.0) Seconds PTT Ratio Sodium 129 L (136-145) mmol/L Potassium (3.5-5.1) mmol/L Chloride (98-107) mmol/L Carbon Dioxide (21-32) mmol/L Anion Gap (3-11) BUN (7-18) mg/dl Creatinine (0.6-1.4) mg/dl Est Cr Clr Drug Dosing Est GFR ( Amer) ml/min Est GFR (Non-Af Amer) ml/min BUN/Creatinine Ratio (10-20) Glucose (70-99) mg/dl Lactate (0.4-2.0) mmol/L Calcium (8.5-10.1) mg/dl Magnesium (1.8-2.4) mg/dl Total Bilirubin (0.2-1) mg/dl AST (15-37) U/L ALT (12-78) U/L Alkaline Phosphatase (45-117) U/L Total Protein (6.4-8.2) gm/dl Albumin (3.4-5.0) gm/dl Globulin (2.5-4.0) gm/dl Albumin/Globulin Ratio (0.9-2) COVID-19 Eval Order SARS-CoV-2 (PCR) (Negative) Administered Medications Discontinued Medications Piperacillin Sod/Tazobactam Sod (Zosyn) 4.5 gm in 120 mls @ 240 mls/hr IV NOW ONE Stop: 06/30/21 12:44 Last Infusion: 06/30/21 13:11 Dose: 0 mls/hr Documented by: [id number] Admin: 06/30/21 12:41 Dose: 240 mls/hr Documented by: [id number] Vancomycin HCl 1,750 mg/ (Sodium Chloride) 535 mls @ 200 mls/hr IV NOW STA Stop: 06/30/21 15:00 Last Infusion: 06/30/21 16:26 Dose: 0 mls/hr Documented by: [id number] Admin: 06/30/21 13:39 Dose: 200 mls/hr Documented by: [id number] Sodium Chloride (Nss 1000ml) 1,000 mls @ 999 mls/hr IV .Q1H1M ONE Stop: 06/30/21 13:22 Last Infusion: 06/30/21 16:26 Dose: 0 mls/hr Documented by: [id number] Admin: 06/30/21 12:42 Dose: 999 mls/hr Documented by: [id number] Imaging Data Radiologist's Impression: Chest X-Ray 06/30/21 12:14 XR chest 1V portable CLINICAL HISTORY: Sepsis. COMPARISON STUDY: Chest radiograph March 22, 2021. FINDINGS: Median sternotomy wires are noted. There is a prosthetic cardiac valve. Cardiac size is normal. Mediastinal contours are unremarkable. Mild elevation of the right hemidiaphragm is present. Linear right basilar opacity favors atelectasis. There is no evidence for pulmonary edema. IMPRESSION: 1. Mild elevation of the right diaphragm, new since prior exam. 2. Linear right basilar opacity suggestive of atelectasis. ACT 112: Negative or not required by law. Electronically signed by: Benji Oconnell M.D. 06/30/2021 1:04 PM Foot X-Ray 06/30/21 12:14 XR foot RT min 3V routine CLINICAL HISTORY: Dry gangrene. Right foot swelling. COMPARISON STUDY: Right foot 01/13/2021. FINDINGS: Large wound at the posterior heel with exposure of the bone. There is soft tissue gas along the plantar surface of the foot. Vascular calcifications are noted. There is erosive changes seen at the posterior calcaneus consistent with an osteomyelitis. A single screw within the right first toe. The hardware appears intact. IMPRESSION: 1. Large wound at the posterior heel with exposure of the posterior calcaneus which demonstrates erosive change/destruction the setting of an osteomyelitis. 2. Soft tissue gas extends along the plantar surface of the foot. This could be secondary to the large wound or represent underlying infection with a gas- forming organism. ACT 112: Negative or not required by law. Electronically signed by: Otf Avila M.D. 06/30/2021 1:07 PM Discharge Plan Visit Data Chief Complaint: Illness Stated Complaint: DRY HEAVES, FEVER, NAUSEA ED Provider: Robert Langley Discharge Problem: Sepsis, Dry gangrene, Acute hyponatremia Forms Stand Alone Forms: My [facility] Prescriptions Prescriptions: No Action atorvastatin [Lipitor] 80 mg tablet 80 mg PO HS Qty: 90 RF: 3 clopidogrel [Plavix] 75 mg tablet 75 mg PO QAM Qty: 30 RF: 5 metoprolol tartrate 25 mg tablet 12.5 mg PO BID Qty: 90 RF: 3 potassium chloride 20 mEq tablet extended release 20 meq PO BID Qty: 60 RF: 5 calcitriol [Rocaltrol] 0.25 mcg capsule 0.25 mcg PO QAM Qty: 30 RF: 5 chlorthalidone 25 mg tablet 25 mg PO QAM Qty: 90 RF: 3 pantoprazole [Protonix] 40 mg tablet,delayed release (DR/EC) 40 mg PO QAM Qty: 30 RF: 5 hydrocortisone [Proctosol HC] 2.5 % cream with perineal applicator 1 applic EXT BID 10 Days Qty: 30 RF: 1 levothyroxine [Synthroid] 175 mcg tablet 175 mcg PO QAM RF: 0 vancomycin 125 mg capsule 125 mg PO DIRECTED RF: 0 insulin aspart U-100 [Novolog U-100 Insulin aspart] 100 unit/mL solution 60 unit SQ CONT RF: 0 folic acid 1 mg Tablet 1 mg PO QAM Qty: 30 RF: 0 ferrous sulfate 325 mg (65 mg iron) Tablet,Delayed Release (Dr/Ec) 325 mg PO BID Qty: 60 RF: 0 aspirin [Aspirin Low Dose] 81 mg tablet,delayed release (DR/EC) 81 mg PO QAM RF: 0 oxycodone 5 mg tablet 5 mg PO TID PRN (Reason: Pain) Qty: 30 RF: 0 Referrals Referrals: Enio Richards III, MD [Primary Care Provider] - Discharge Problem: Sepsis Qualifiers: Sepsis type: sepsis due to unspecified organism Sepsis acute organ dysfunction status: unspecified Qualified Code(s): A41.9 - Sepsis, unspecified organism
[2021-06-30] MEDS ORDERED: VANCOMYCIN HCL 1,750 MG in SODIUM CHLORIDE 0.9% 500 ML IV STA (12:20)
[2021-06-30] MEDS ORDERED: SODIUM CHLORIDE 0.9% 1000ML 1,000 ML IV ONE (12:22)
[2021-06-30 12:38] LABS: Basophils # (auto) 0.01 K/uL (0-0.2); Basophils % (auto) 0.1 %; Hematocrit (blood only) 36.9 % (42-52); Immature Granulocytes # (auto) 0.06 K/uL (0.00-0.02); Immature Granulocytes % (auto) 0.3 %; Lymphocytes # (auto) 0.77 K/uL (1.2-3.4); Mean Corpuscular Hemoglobin 25.8 pg (25-34); Mean Corpuscular Hgb Conc 32.5 g/dL (32-36); Mean Corpuscular Volume 79.2 fL (80-100); Mean Platelet Volume 8.9 fL (7.4-10.4); Monocytes # (auto) 1.54 K/uL (0.11-0.59); Neutrophils # (auto) 16.81 K/uL (1.4-6.5); Neutrophils % (auto) 87.6 %; Platelet Count 548 K/uL (130-400); RDW Coefficient of Variation 15.7 % (11.5-14.5); RDW Standard Deviation 45.7 fL (36.4-46.3); Red Blood Count 4.66 M/uL (4.7-6.1); White Blood Count 19.19 K/uL (4.8-10.8)
[2021-06-30 12:48] LABS: INR 1.2 (0.9-1.1); Partial Thromboplastin Ratio 1.1; Partial Thromboplastin Time 27.8 Seconds (21.0-31.0); Prothrombin Time 11.6 Seconds (9.0-12.0)
[2021-06-30 12:59] LABS: Alanine Aminotransferase 16 U/L (12-78); Albumin Level 2.3 gm/dl (3.4-5.0); Aspartate Aminotransferase 21 U/L (15-37); BUN Creatinine Ratio 12.8 (10-20); Blood Urea Nitrogen 15 mg/dl (7-18); Calcium 9.2 mg/dl (8.5-10.1); Carbon Dioxide 31 mmol/L (21-32); Chloride 86 mmol/L (98-107); Est GFR (African American) 79.2 ml/min; Est GFR (Non-African American) 68.3 ml/min; Glucose 146 mg/dl (70-99); Magnesium 1.9 mg/dl (1.8-2.4); Potassium 3.3 mmol/L (3.5-5.1); Sodium 126 mmol/L (136-145)
[2021-06-30 13:02] LABS: Albumin Globulin Ratio 0.3 (0.9-2); Alkaline Phosphatase 150 U/L (45-117); Bilirubin,Total 1.1 mg/dl (0.2-1); Globulin 6.9 gm/dl (2.5-4.0); Total Protein 9.2 gm/dl (6.4-8.2)
--- NOTE | 2021-06-30 13:05 | XRay Report ---
XR chest 1V portable CLINICAL HISTORY: Sepsis. COMPARISON STUDY: Chest radiograph March 22, 2021. FINDINGS: Median sternotomy wires are noted. There is a prosthetic cardiac valve. Cardiac size is nor mal. Mediastinal contours are unremarkable. Mild elevation of the right hemidiaphragm is present. Mala ear right basilar opacity favors atelectasis. There is no evidence for pulmonary edema. IMPRESSION: 1. Mild elevation of the right diaphragm, new since prior exam. 2. Linear right basilar opacity suggestive of atelectasis. ACT 112: Negative or not required by law. Electronically signed by: Benji Oconnell M.D. 06/30/2021 1:04 PM
--- NOTE | 2021-06-30 13:08 | XRay Report ---
XR foot RT min 3V routine CLINICAL HISTORY: Dry gangrene. Right foot swelling. COMPARISON STUDY: Right foot 01/13/2021. FINDINGS: Large wound at the posterior heel with exposure of the bone. There is soft tissue gas along the plantar surface of the foot. Vascular calcifications are noted. There is erosive changes seen at the posterior calcaneus consistent with an osteomyelitis. A single screw within the right first toe. The hardware appears intact. IMPRESSION: 1. Large wound at the posterior heel with exposure of the posterior calcaneus which demonstrates eros raquel change/destruction the setting of an osteomyelitis. 2. Soft tissue gas extends along the plantar surface of the foot. This could be secondary to the larg e wound or represent underlying infection with a gas-forming organism. ACT 112: Negative or not required by law. Electronically signed by: Otf Avila M.D. 06/30/2021 1:07 PM
[2021-06-30] MEDS ORDERED: PHARMACY GLYCEMIC MGMT CONSULT PRN (14:41)
--- NOTE | 2021-06-30 14:44 | History & Physical Report ---
Date of Service June 30, 2021 Assessment & Plan (1) Dry gangrene: Plan: Patient appears to have above diagnosis. Patient will likely benefit from BKA of affected limb. Given elevated WBC, concern for possibloty of sepsis, recommend this procedure done within the next 24-48 hours Revascularization 01/19/21 initially successful but Graft occluded. Plan to undergo BKA as above -Ok to hold plavix in AM. -C.diff asppears to be controlled as patient no longer is having diarrhea. This should not preculde him from having the procedure. continue vanco IV and IV zosyn Patient is at intermediate high risk for an intermediate risk procedure. Patient at this point should have procedure done and do not recommend any further cardiac evaluations prior to the procedure. (2) Acute hyponatremia: Plan: will monitor sodium improved to 129 from 126 Will continue to hold thiazide diuretic and monitor. (3) Iron deficiency: Plan: hemoglobin is at 12. will hold further iron studies at the moment. (4) Folate deficiency: Plan: layla resume folic acid (5) Peripheral arterial disease: Plan: as stated above. will hold plavix/asa contine atorvastatin (6) Clostridium difficile colitis: Plan: fnisnishing up a taper of vancomycin. No longer having diarrhea. Now on 7 days of vanco PO BID. Unsure which day he is on, his will call tomorrow with that information. Once he completes the 7 days, he will be on a daily dose for 7 days. (7) Diabetes type 1, controlled: Plan: continue insulin pump. consulted glycemic control History of Present Illness Chief Complaint: Worsening foot infection Primary Care Provider: Enio Richards MD 66 yo male reports coming to the hosptial as he noted having a stronger odor coming from his foot from last night. This AM, he felt subjective fever, and chills and decided he should come into the ER. Patient follows with Dr. Beasley as an outpatient, and it appears he has plans for amputating his foot, as patient failed revascularization by Dr. Eason back in january as his graft became occluded. Now he is trying to get an Below knee amputation and was waiting for his vascular incision to heal. He also reports that he is curretnly getting vancomycin for his c diff treatment and is finishing a taper dose. He is currently taking BID dosing to complete 7 days and will then be on 7 day daily. Patient however reports he no longer is having diarrhea. Allergies Allergy/AdvReac Type Severity Reaction Status Date / Time No Known Allergies Allergy Unknown Verified 06/30/21 11:59 Home Medications Medication Instructions Recorded Confirmed Type atorvastatin 80 mg tablet (Lipitor) 80 mg PO HS #90 tab 11/25/20 06/30/21 Rx clopidogrel 75 mg tablet (Plavix) 75 mg PO QAM #30 tab 01/28/21 06/30/21 Rx metoprolol tartrate 25 mg tablet 12.5 mg PO BID #90 tab 02/09/21 06/30/21 Rx potassium chloride 20 mEq 20 meq PO BID #60 tab 02/22/21 06/30/21 Rx tablet,extended release ferrous sulfate 325 mg (65 mg 325 mg PO BID #60 tab 04/07/21 06/30/21 Rx iron) tablet,delayed release folic acid 1 mg tablet 1 mg PO QAM #30 tab 04/07/21 06/30/21 Rx calcitriol 0.25 mcg capsule 0.25 mcg PO QAM #30 cap 04/27/21 06/30/21 Rx (Rocaltrol) aspirin 81 mg tablet,delayed 81 mg PO QAM 05/04/21 06/30/21 History release (Aspirin Low Dose) oxycodone 5 mg tablet 5 mg PO TID PRN #30 tab 05/13/21 06/30/21 Rx chlorthalidone 25 mg tablet 25 mg PO QAM #90 tab 05/19/21 06/30/21 Rx hydrocortisone 2.5 % topical cream 1 applic EXT BID 10 Days #30 g 05/20/21 06/30/21 Rx with perineal applicator (Proctosol HC) pantoprazole 40 mg tablet,delayed 40 mg PO QAM #30 tab 06/15/21 06/30/21 Rx release (Protonix) insulin aspart U-100 100 unit/mL 60 unit SQ CONT 06/30/21 06/30/21 History subcutaneous solution (Novolog U-100 Insulin aspart) levothyroxine 175 mcg tablet 175 mcg PO QAM 06/30/21 06/30/21 History (Synthroid) vancomycin 125 mg capsule 125 mg PO DIRECTED 06/30/21 06/30/21 History Past Med/Surg History Medical History Acute proctitis Aortic stenosis s/p porcine valve replacement (2016) with CABG x 1 CAD (coronary artery disease) s/p CABG x 1 (2015) CKD (chronic kidney disease) stage 2, GFR 60-89 ml/min Clostridium difficile infection Diabetes mellitus type 1 + Insulin pump Diabetic nephropathy associated with type 1 diabetes mellitus Dyslipidemia GERD (gastroesophageal reflux disease) Hypertension Hypothyroidism Insulin pump in place Osteoarthritis Osteoporosis Proliferative diabetic retinopathy associated with type 1 diabetes mellitus PVD (peripheral vascular disease) s/p B/L iliac artery stents (2014), R common/external iliac (2017), R common femoral endarterectomy (11/2018) with bovine patch. Left femoral to PT composite bypass graft (06/2020) VRE infection (vancomycin resistant enterococcus), with multi-drug resistance Surgical History H/O cataract extraction R/L H/O endarterectomy R common femoral (11/2018) H/O vascular surgery Right Femoral to Posterior tibial Prosthetic Bypass Graft(Right) History of ankle surgery LEFT ANKLE +HARDWARE REMOVED History of aortic valve replacement 2016 ([facility] [place]) History of arterial bypass of lower extremity Left femoral to PT composite bypass graft (06/2020) History of cardiac cath x2, most recent 2016 > no stents (subsequent CABG with AVR in 2016) History of carpal tunnel release R/L History of colonoscopy History of coronary artery bypass graft CABG x1 + AVR (2015) History of esophagogastroduodenoscopy (EGD) History of myringotomy History of open reduction and internal fixation (ORIF) procedure LLE () History of skin graft Split Thickness Skin Graft of Left Lateral Ankle (11/18/20): LMA#5, atraumatic x1 at [facility] History of tonsillectomy History of tooth extraction History of umbilical hernia repair Hx of surgical procedure Left Leg Wound Debridement and Irrigation S/P femoropopliteal bypass surgery Right fem-pop bypass graft (01/19/21): Grade 2 view, MAC 3.0, ETT 8.0 at [facility] S/P insertion of iliac artery stent B/L iliac stent placement (2014) 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 Family History Brother Family history of diabetes mellitus Sister Family history of diabetes mellitus Mother Family history of diabetes mellitus Grandmother (Maternal) Family history of diabetes mellitus Uncle Family hx of colon cancer Colorectal cancer Father Family history of esophageal cancer Sister Family history of diabetes mellitus Other No family history of adverse response to anesthesia Denies family history of Ovarian cancer Prostate cancer Myocardial infarction Breast cancer Social History Smoking Status: Former smoker Tobacco Type: Cigarettes and Smokeless Tobacco (Dip or Chew) Cigarettes Per Day: Quit 15 years ago; Second Hand Exposure: No; Hx Alcohol Use: No Hx Substance Use: No Preferred Language: Kyrgyz Communication Ability: Effective Visual Impairment: No Limitations Hearing Ability: Normal Community Health Specialist Required: No Beliefs That Will Affect Care: None marital status: Current Living Situation: Other Current Living Situation Comment: roommate How many Children do You have: 2 Other Information That Helps Us Care for You: No Feels Safe at Home: Yes Safety Concerns: Feels Safe At This Time Childhood Exposure to Second-Hand Smoke: Yes Diet Comment: Carb Counts. (5310-8477, roughly), protein drinks caffeine: Yes (coffee, rarely ) during the past year weight has: remained stable Dental Care, Regularly: No Physical Activity Frequency: 1-2 Times per Week Seatbelt Use: always Sunscreen Use: No Gender Identity: Male Assistive Devices: Denture - Upper, Glasses and Walker Assistive Devices Comment: at home Review of Systems Review of Systems: All systems reviewed & are unremarkable except as noted in HPI & below Physical Exam Constitutional: WD/WN, vitals as above (Room has an extremely foul odor due to foot infection.) Eyes: PERRL, conjunctivae normal, anicteric sclerae ENMT: external ear and nose normal, oropharynx normal Neck: trachea midline, no thyromegaly Respiratory: normal respiratory effort, lungs clear to auscultation Cardiovascular: RRR, no murmur, no edema Gastrointestinal (Abdomen): normal bowel sounds, soft, nontender, no hepatosplenomegaly Musculoskeletal: Right foot: Appears to be necrosis on heel and dry gangrene of the fifth digit. Peripheral pulses not able to be palpated. Healed surgical scar from revascularization surgery over anterior lower leg noted Skin: as noted above Neurologic: PERRL, EOMI, accommodation nl, no face palsy, no dysarthria Psychiatric: A+Ox3, euthymic affect Lymphatic: no cervical or axillary lymphadenopathy Results & Data Results & Data ([facility]) Vital Signs (Past 12 Hours) Vital Signs Temp Pulse Pulse Resp BP BP Pulse Ox 06/30/21 13:08 81 20 136/54 L 96 06/30/21 13:00 82 25 H 95 06/30/21 12:50 84 14 96 06/30/21 12:41 110 H 15 06/30/21 12:15 87 22 95 06/30/21 12:14 38.8 C H 81 20 122/64 95 06/30/21 11:14 35.8 C L 96 H 18 138/83 97 PG Care Time/CCT Total # of Minutes Spent Total Time Spent with Patient: Total time spent is greater than 50% in coordination of care (as documented) at patient's floor/unit and/or counseling patient: Coding Level of Care Code 84701 Initial Inpt Care Lvl 3 Diagnoses Dry gangrene I96 Acute hyponatremia E87.1 Iron deficiency E61.1 Folate deficiency E53.8 Peripheral arterial disease I73.9 Clostridium difficile colitis A04.72 Diabetes type 1, controlled E10.9
--- NOTE | 2021-06-30 15:59 | Orthopedic Consultation ---
Date of Consultation June 30, 2021 Assessment & Plan (1) Osteomyelitis due to type 1 diabetes mellitus: Discussed the patient's condition with Dr. Soto. Recommended that we did discuss the possibility of surgical intervention with medicine service to see If he is cleared medically to proceed with surgical intervention tomorrow. I will contact the operating room and see if they have time for Dr. Soto tomorrow after his case surgery center. Patient is on Plavix and vancomycin for C. difficile. These factors may delay surgical intervention for this patient. If medicine feels it is acceptable to treat the patient surgically tomorrow we will have him be n.p.o. after midnight tonight. Spoke with mom and the hospitalist service Dr. Giana Padilla. He feels that the patient is medically cleared for surgical intervention tomorrow. He will hold his Plavix dose tomorrow. He states that his C. difficile has been effectively treated and he is just finishing his vancomycin. He feels that the risks of waiting to remove the patient's right lower extremity poses the possibility of the patient becoming septic. He feels that surgical intervention is necessary at soonest convenience. I contacted the operating room and they will place the patient on as an add-on case for tomorrow afternoon. History of Present Illness Reason for Consultation: Right foot gangrenous ulcerations Attending Physician: Xander Soto MD History of Present Illness This 66-year-old male was seen for consultation for gangrenous Right foot ulcreations with associated fevers, chills, nausea, dry heaving and weakness. He denies any headache or change in vision. No chest pain or shortness of breath. He notes that his foot has been deteriorating. He had vascular surgery on it which failed and notes that infection is getting worse. Patient denies chest pain, shortness of breath, lethargy, headache, vomiting, diarrhea. He states the foot has been the issue for the past 2 years and is getting progressively worse. He states that the scar from the revascularization surgery seems to be completely healed. He states that he was scheduled to see Dr. Soto on the but the symptoms presented earlier this morning. Allergies Allergy/AdvReac Type Severity Reaction Status Date / Time No Known Allergies Allergy Unknown Verified 06/30/21 11:59 Home Medications Medication Instructions Recorded Confirmed Type atorvastatin 80 mg tablet (Lipitor) 80 mg PO HS #90 tab 03/17/21 10/20/21 Rx clopidogrel 75 mg tablet (Plavix) 75 mg PO QAM #30 tab 01/28/21 06/30/21 Rx metoprolol tartrate 25 mg tablet 12.5 mg PO BID #90 tab 02/09/21 06/30/21 Rx potassium chloride 20 mEq 20 meq PO BID #60 tab 02/22/21 06/30/21 Rx tablet,extended release ferrous sulfate 325 mg (65 mg 325 mg PO BID #60 tab 04/07/21 06/30/21 Rx iron) tablet,delayed release folic acid 1 mg tablet 1 mg PO QAM #30 tab 04/07/21 06/30/21 Rx calcitriol 0.25 mcg capsule 0.25 mcg PO QAM #30 cap 04/27/21 06/30/21 Rx (Rocaltrol) aspirin 81 mg tablet,delayed 81 mg PO QAM 05/04/21 06/30/21 History release (Aspirin Low Dose) oxycodone 5 mg tablet 5 mg PO TID PRN #30 tab 05/13/21 06/30/21 Rx chlorthalidone 25 mg tablet 25 mg PO QAM #90 tab 05/19/21 06/30/21 Rx hydrocortisone 2.5 % topical cream 1 applic EXT BID 10 Days #30 g 05/20/21 06/30/21 Rx with perineal applicator (Proctosol HC) pantoprazole 40 mg tablet,delayed 40 mg PO QAM #30 tab 06/15/21 06/30/21 Rx release (Protonix) insulin aspart U-100 100 unit/mL 60 unit SQ CONT 06/30/21 06/30/21 History subcutaneous solution (Novolog U-100 Insulin aspart) levothyroxine 175 mcg tablet 175 mcg PO QAM 06/30/21 06/30/21 History (Synthroid) vancomycin 125 mg capsule 125 mg PO DIRECTED 06/30/21 06/30/21 History Patient History Medical History Acute proctitis Aortic stenosis s/p porcine valve replacement (2015) with CABG x 1 CAD (coronary artery disease) s/p CABG x 1 (2015) CKD (chronic kidney disease) stage 2, GFR 60-89 ml/min Clostridium difficile infection Diabetes mellitus type 1 + Insulin pump Diabetic nephropathy associated with type 1 diabetes mellitus Dyslipidemia GERD (gastroesophageal reflux disease) Hypertension Hypothyroidism Insulin pump in place Osteoarthritis Osteoporosis Proliferative diabetic retinopathy associated with type 1 diabetes mellitus PVD (peripheral vascular disease) s/p B/L iliac artery stents (2014), R common/external iliac (2017), R common femoral endarterectomy (11/2018) with bovine patch. Left femoral to PT composite bypass graft (06/2020) VRE infection (vancomycin resistant enterococcus), with multi-drug resistance Surgical History H/O cataract extraction R/L H/O endarterectomy R common femoral (11/2018) H/O vascular surgery Right Femoral to Posterior tibial Prosthetic Bypass Graft(Right) History of ankle surgery LEFT ANKLE +HARDWARE REMOVED History of aortic valve replacement 2016 ([facility] [place]) History of arterial bypass of lower extremity Left femoral to PT composite bypass graft (06/2020) History of cardiac cath x2, most recent 2016 > no stents (subsequent CABG with AVR in 2015) History of carpal tunnel release R/L History of colonoscopy History of coronary artery bypass graft CABG x1 + AVR (2015) History of esophagogastroduodenoscopy (EGD) History of myringotomy History of open reduction and internal fixation (ORIF) procedure LLE () History of skin graft Split Thickness Skin Graft of Left Lateral Ankle (11/18/20): LMA#5, atraumatic x1 at [facility] History of tonsillectomy History of tooth extraction History of umbilical hernia repair Hx of surgical procedure Left Leg Wound Debridement and Irrigation S/P femoropopliteal bypass surgery Right fem-pop bypass graft (01/19/21): Grade 2 view, MAC 3.0, ETT 8.0 at [facility] S/P insertion of iliac artery stent B/L iliac stent placement (2014) 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 Family History Brother Family history of diabetes mellitus Sister Family history of diabetes mellitus Mother Family history of diabetes mellitus Grandmother (Maternal) Family history of diabetes mellitus Uncle Family hx of colon cancer Colorectal cancer Father Family history of esophageal cancer Sister Family history of diabetes mellitus Other No family history of adverse response to anesthesia Denies family history of Ovarian cancer Prostate cancer Myocardial infarction Breast cancer Social History Smoking Status: Never smoker Tobacco Type: Cigarettes and Smokeless Tobacco (Dip or Chew) Cigarettes Per Day: Quit 15 years ago; Second Hand Exposure: No; Hx Alcohol Use: No Hx Substance Use: No Preferred Language: Spanish Communication Ability: Effective Visual Impairment: No Limitations Hearing Ability: Normal Windows Systems Admin Required: No Beliefs That Will Affect Care: None marital status: Current Living Situation: Alone Current Living Situation Comment: with roommate How many Children do You have: 2 Feels Safe at Home: Yes Childhood Exposure to Second-Hand Smoke: Yes Diet Comment: Carb Counts. (7658-2510, roughly), protein drinks caffeine: Yes (coffee, rarely ) during the past year weight has: remained stable Dental Care, Regularly: No Physical Activity Frequency: 1-2 Times per Week Seatbelt Use: always Sunscreen Use: No Gender Identity: Male Assistive Devices: Denture - Upper Review of Systems Review of Systems: All systems reviewed & are unremarkable except as noted in HPI & below Physical Exam Physical Exam: Right foot: Very foul-smelling odor coming from the room upon entrance. There isdry gangrene of the fifth digit. Erythema streaking up to mid ghotra. Necrosis around the base of the heel. Third and second digit with necrosis tracking up to PIP on plantar surface tracking centrally to the midfoot over the second MTP with necrosis present as well.Peripheral pulses not able to be palpated. Capillary refill is difficult to detect due to onychomycosis of the toenails. Surgical scar from revascularization surgery over the medial aspect of the anterior lower leg appears to be healed completely. Results & Data ([facility]) Vital Signs (Past 12 Hours) Vital Signs Temp Pulse Pulse Resp BP BP Pulse Ox 06/30/21 13:08 81 20 136/54 L 96 06/30/21 13:00 82 25 H 95 06/30/21 12:50 84 14 96 06/30/21 12:41 110 H 15 06/30/21 12:15 87 22 95 06/30/21 12:14 38.8 C H 81 20 122/64 95 06/30/21 11:14 35.8 C L 96 H 18 138/83 97 Diagnostic Findings Laboratory Results WBC 19.19 K/uL (4.8-10.8) H 06/30/21 12:24 RBC 4.66 M/uL (4.7-6.1) L 06/30/21 12:24 Hgb 12.0 g/dL (14.0-18.0) L 06/30/21 12:24 Hct 36.9 % (42-52) L 06/30/21 12:24 MCV 79.2 fL (80-100) L 06/30/21 12:24 MCH 25.8 pg (25-34) 06/30/21 12:24 MCHC 32.5 g/dL (32-36) 06/30/21 12:24 RDW Std Deviation 45.7 fL (36.4-46.3) 06/30/21 12:24 RDW Coeff of Chan 15.7 % (11.5-14.5) H 06/30/21 12:24 Plt Count 548 K/uL (130-400) H 06/30/21 12:24 MPV 8.9 fL (7.4-10.4) 06/30/21 12:24 Immature Gran % (Auto) 0.3 % 06/30/21 12:24 Neut % (Auto) 87.6 % 06/30/21 12:24 Lymph % (Auto) 4.0 % 06/30/21 12:24 [place] % (Auto) 8.0 % 06/30/21 12:24 Eos % (Auto) 0.0 % 06/30/21 12:24 Baso % (Auto) 0.1 % 06/30/21 12:24 Neut # (Auto) 16.81 K/uL (1.4-6.5) H 06/30/21 12:24 Lymph # (Auto) 0.77 K/uL (1.2-3.4) L 06/30/21 12:24 [place] # (Auto) 1.54 K/uL (0.11-0.59) H 06/30/21 12:24 Eos # (Auto) 0.00 K/uL (0-0.5) 06/30/21 12:24 Baso # (Auto) 0.01 K/uL (0-0.2) 06/30/21 12:24 Immature Gran # (Auto) 0.06 K/uL (0.00-0.02) H 06/30/21 12:24 PT 11.6 Seconds (9.0-12.0) 06/30/21 12:24 INR 1.2 (0.9-1.1) H 06/30/21 12:24 APTT 27.8 Seconds (21.0-31.0) 06/30/21 12:24 PTT Ratio 1.1 06/30/21 12:24 Sodium 129 mmol/L (136-145) L 06/30/21 15:09 Potassium 3.3 mmol/L (3.5-5.1) L 06/30/21 12:24 Chloride 86 mmol/L (98-107) L 06/30/21 12:24 Carbon Dioxide 31 mmol/L (21-32) 06/30/21 12:24 Anion Gap 10.0 (3-11) 06/30/21 12:24 BUN 15 mg/dl (7-18) 06/30/21 12:24 Creatinine 1.13 mg/dl (0.6-1.4) 06/30/21 12:24 Est Cr Clr Drug Dosing Not Reportable 06/30/21 12:24 Est GFR ( Amer) 79.2 ml/min 06/30/21 12:24 Est GFR (Non-Af Amer) 68.3 ml/min 06/30/21 12:24 BUN/Creatinine Ratio 12.8 (10-20) 06/30/21 12:24 Glucose 146 mg/dl (70-99) H 06/30/21 12:24 Lactate 1.4 mmol/L (0.4-2.0) 06/30/21 12:24 Calcium 9.2 mg/dl (8.5-10.1) 06/30/21 12:24 Magnesium 1.9 mg/dl (1.8-2.4) 06/30/21 12:24 Total Bilirubin 1.1 mg/dl (0.2-1) H 06/30/21 12:24 AST 21 U/L (15-37) 06/30/21 12:24 ALT 16 U/L (12-78) 06/30/21 12:24 Alkaline Phosphatase 150 U/L (45-117) H 06/30/21 12:24 Total Protein 9.2 gm/dl (6.4-8.2) H 06/30/21 12:24 Albumin 2.3 gm/dl (3.4-5.0) L 06/30/21 12:24 Globulin 6.9 gm/dl (2.5-4.0) H 06/30/21 12:24 Albumin/Globulin Ratio 0.3 (0.9-2) L 06/30/21 12:24 COVID-19 Eval Order Covid19 at [facility] 06/30/21 12:25 SARS-CoV-2 (PCR) NEGATIVE (Negative) 06/30/21 12:25 Impressions Chest X-Ray 06/30/21 12:14 XR chest 1V portable CLINICAL HISTORY: Sepsis. COMPARISON STUDY: Chest radiograph March 22, 2021. FINDINGS: Median sternotomy wires are noted. There is a prosthetic cardiac valve. Cardiac size is normal. Mediastinal contours are unremarkable. Mild elevation of the right hemidiaphragm is present. Linear right basilar opacity favors atelectasis. There is no evidence for pulmonary edema. IMPRESSION: 1. Mild elevation of the right diaphragm, new since prior exam. 2. Linear right basilar opacity suggestive of atelectasis. ACT 112: Negative or not required by law. Electronically signed by: Benji Oconnell M.D. 06/30/2021 1:04 PM Foot X-Ray 06/30/21 12:14 XR foot RT min 3V routine CLINICAL HISTORY: Dry gangrene. Right foot swelling. COMPARISON STUDY: Right foot 01/13/2021. FINDINGS: Large wound at the posterior heel with exposure of the bone. There is soft tissue gas along the plantar surface of the foot. Vascular calcifications are noted. There is erosive changes seen at the posterior calcaneus consistent with an osteomyelitis. A single screw within the right first toe. The hardware appears intact. IMPRESSION: 1. Large wound at the posterior heel with exposure of the posterior calcaneus which demonstrates erosive change/destruction the setting of an osteomyelitis. 2. Soft tissue gas extends along the plantar surface of the foot. This could be secondary to the large wound or represent underlying infection with a gas- forming organism. ACT 112: Negative or not required by law. Electronically signed by: Otf Avila M.D. 06/30/2021 1:07 PM
[2021-06-30] MEDS ORDERED: CLINDAMYCIN 600 MG in DEXTROSE 5% 50 ML IV ONE (16:08)
--- NOTE | 2021-06-30 17:23 | Consultation Report ---
DATE OF SERVICE: 06/30/2021 Mr. Chowdhury is well known to me from prior treatment. He has a necrotic gangrenous right foot with oste omyelitis secondary to diabetes and ischemic vascular disease. We had been planning a below versus a karissa knee amputation and we were waiting for his right medial upper leg wound to heal from recent vas cular surgery. He came in today because he had a fever, dry heaves, nausea. He did have a temperatu re of 38.8. White count is 19,000, hemoglobin 12, hematocrit 39, platelets 548. His other labs are noted. He is not on any blood thinners other than aspirin and Plavix. Prior CT of the leg shows no m etal. X-ray of the foot shows gas in the soft tissues, which I think is due to the open wounds. The re is nothing in the ankle or leg. There is evidence of osteomyelitis and the report is noted. On exam, he has knee motion 0 to about 110 degrees with no effusion. The medial upper leg wound is c ompletely healed and the skin on the upper half of the leg looks good. There is an open wound over t he heel and necrosis of the little toe proceeding down to the sole of the foot with ischemic necrosis . The patient is seen in conjunction with Christi Dietrich. For further details, refer to his dictation. Dave romero and I saw and evaluated together. I am in agreement with the plan. Care was coordinated with the hospitalist. Plan is for him to be admitted to medicine, receive intra venous antibiotics. I do not think that there is anything suggestive of necrotizing fasciitis at thi s point, I think the gas in the subcutaneous tissues is from the open wounds and the necrosis. We wi ll monitor his condition. Plan is for a below-knee versus above-knee amputation. We talked about risks, benefits, rehab and re covery, and an informed consent was obtained. Job ID: [id number]
[2021-06-30] MEDS ORDERED: INSULIN GLARGINE SOLOSTAR 100 UNITS/ML 3 ML PEN SC ONE (19:00)
[2021-06-30] MEDS ORDERED: GLUCOSE 40% GEL 15 GM TUBE PO PRN (19:00)
[2021-06-30] MEDS ORDERED: GLUCOSE 10 TABS/TUBE PO PRN (19:00)
[2021-06-30] MEDS ORDERED: INSULIN ASPART 100 UNITS/ML 3 ML PEN SC SCH (19:00)
[2021-06-30] MEDS ORDERED: GLUCAGON FOR INJ 1 MG VIAL IM PRN (19:00)
[2021-06-30] MEDS ORDERED: DEXTROSE 50% 50 ML SYRINGE IV PRN (19:00)
[2021-06-30] MEDS: POTASSIUM CHLORIDE CRTAB 20 MEQ TABCR PO SCH (19:32)
[2021-06-30] MEDS: PIPERACILLIN/TAZOBACTAM 3.375 GM in DEXTROSE 5% 100 ML IV SCH (19:49)
[2021-06-30] MEDS: RASPBERRY SYRUP 5 ML UDP PO SCH (20:01)
[2021-06-30] MEDS: VANCOMYCIN HCL 125 MG/2.5ML SOLN PO SCH (20:02)
[2021-06-30] MEDS: ATORVASTATIN 40 MG TAB PO SCH (20:02)
[2021-06-30] MEDS: FERROUS SULFATE 325 MG TAB PO SCH (20:02)
[2021-06-30] MEDS: METOPROLOL TARTRATE 25 MG TAB PO SCH (20:03)
--- NOTE | 2021-06-30 20:08 | Pharmacy Report ---
Pharmacy Glycemic Short Note 2 - Date of Service June 30, 2021 - Glycemic Short BSG Results (Last 24 hours): 06/30/21 06/30/21 12:24 18:48 Glucose 146 H POC Glucose 147 H OUTPATIENT ANTIDIABETIC REGIMEN: * Novolog pump * Basal rate = 1.65 units/hr or ~40 units/day * CF 30 * CR 6 ASSESSMENT: * Mr Chowdhury is a 66 y/o M with a PMH of T1DM who presents with worsening foot infection. He is typically maintained on an insulin pump with above settings. * Spoke with the patient whenever he was admitted. His insulin pump was disconnected at 1800 (approximately 45 hours before I spoke to him). He does not have the supplies so would prefer basal bolus. * After reviewing previous admission, noticed that patient did well on regimen of Lantus 15 units in morning and 35 units in evening. There is no data when ever patient is NPO. Find it reasonable to start the above regimen with 35 units tonight then insulin tomorrow morning can be adjusted to how patient responds. * Novolog will be q4 after midnight to ensure adequate glucose control prior to proposed surgery. PLAN FOR INPATIENT GLYCEMIC CONTROL: * Basal insulin * Lantus 35 units SQ x 1 then TBD * Bolus insulin * NovoLog per scale ACHS or Q6hrs while NPO * Goal Range: Low 110 mg/dL - High 140 mg/dL * Correction Factor: 20 mg/dL/unit * Nutritional / Prandial insulin per carb ratio of 1 unit per 4 grams CHO consumed PLAN FOR DISCHARGE: * HbA1C within goal range for patient so recommend continuing current regimen.
[2021-06-30 20:13] LABS: Appearance Urine Clear (Clear); Bilirubin Urine Negative (Negative); Blood Urine Negative (Negative); Color Urine Yellow; Glucose Urine UA Negative (Negative); Ketones Urine Negative (Negative); Leukocyte Esterase Urine Negative (Negative); Nitrite Urine Negative (Negative); Protein Urine Negative (Negative); Specific Gravity Urine 1.011 (1.000-1.030); Urobilinogen Urine Negative (Negative); pH Urine 6.5 (4.5-7.5)
[2021-06-30] MEDS: INSULIN ASPART 100 UNITS/ML 3 ML PEN SC SCH (23:34)
[2021-07-01] MEDS: INSULIN ASPART 100 UNITS/ML 3 ML PEN SC SCH ×5 (04:00→20:44)
[2021-07-01] MEDS: PIPERACILLIN/TAZOBACTAM 3.375 GM in DEXTROSE 5% 100 ML IV SCH ×3 (04:09→20:58)
[2021-07-01] MEDS ORDERED: INSULIN ASPART 100 UNITS/ML 3 ML PEN SC SCH (06:00)
[2021-07-01] MEDS: LEVOTHYROXINE SODIUM 175 MCG TABLET PO SCH (06:39)
[2021-07-01 06:48] LABS: Basophils # (auto) 0.01 K/uL (0-0.2); Basophils % (auto) 0.1 %; Eosinophils # (auto) 0.02 K/uL (0-0.5); Eosinophils % (auto) 0.1 %; Hematocrit (blood only) 32.7 % (42-52); Hemoglobin 10.5 g/dL (14.0-18.0); Immature Granulocytes # (auto) 0.03 K/uL (0.00-0.02); Immature Granulocytes % (auto) 0.2 %; Lymphocytes # (auto) 1.49 K/uL (1.2-3.4); Lymphocytes % (auto) 10.4 %; Mean Corpuscular Hgb Conc 32.1 g/dL (32-36); Mean Corpuscular Volume 77.9 fL (80-100); Mean Platelet Volume 8.8 fL (7.4-10.4); Monocytes # (auto) 1.14 K/uL (0.11-0.59); Neutrophils % (auto) 81.2 %; Platelet Count 511 K/uL (130-400); RDW Coefficient of Variation 15.6 % (11.5-14.5); White Blood Count 14.29 K/uL (4.8-10.8)
[2021-07-01 07:08] LABS: BUN Creatinine Ratio 16.1 (10-20); Calcium 8.4 mg/dl (8.5-10.1); Creatinine Clr Calc Pharmacy 74.4 ml/min; Est GFR (African American) 95.2 ml/min; Est GFR (Non-African American) 82.2 ml/min
[2021-07-01 07:47] LABS: Estimated Average Glucose 203 mg/dl; Hemoglobin A1C 8.7 % (4.5-5.6)
[2021-07-01] MEDS ORDERED: INSULIN GLARGINE SOLOSTAR 100 UNITS/ML 3 ML PEN SC ONE (08:00)
[2021-07-01] MEDS ORDERED: ondansetron HCL 8 MG in DEXTROSE 5% 50 ML IV PRN (08:22)
--- NOTE | 2021-07-01 08:24 | Hospitalist Progress Note ---
Date of Service July 01, 2021 Assessment & Plan (1) Dry gangrene: Plan: Patient appears to have above diagnosis. Patient will likely benefit from BKA of affected limb. Given elevated WBC, concern for possibloty of sepsis, recommend this procedure done within the next 24-48 hours Revascularization 01/19/21 initially successful but Graft occluded. Plan to undergo BKA as above -Ok to hold plavix in AM. -C.diff asppears to be controlled as patient no longer is having diarrhea. This should not preculde him from having the procedure. continue vanco IV and IV zosyn Prior to the procedure patient resulted 2 of 2 cultures with gram-positive cocci in chains (2) Acute hyponatremia: Plan: will monitor sodium improved to 129 from 126 Will continue to hold thiazide diuretic and monitor. (3) Iron deficiency: Plan: hemoglobin is at 12. will hold further iron studies at the moment. (4) Folate deficiency: Plan: layla resume folic acid (5) Peripheral arterial disease: Plan: as stated above. will hold plavix/asa contine atorvastatin (6) Clostridium difficile colitis: Plan: fnisnishing up a taper of vancomycin. No longer having diarrhea. Now on 7 days of vanco PO BID. Unsure which day he is on, his will call tomorrow with that information. Once he completes the 7 days, he will be on a daily dose for 7 days. (7) Diabetes type 1, controlled: Plan: continue insulin pump. consulted glycemic control (8) Hypokalemia: Plan: Replete with both p.o. and IV follow in the morning Admission and Anticipated Discharge Date Admission Date: June 30, 2021 Subjective pt is pleasant for BKA today, low potassium is unexplained , pt has foul smell from right heel Review of Systems Review of Systems: Mild distress and fatigue no headache, no visual changes no speech or swallowing issues no chest pain, pressure or palpitations no shortness of breath, cough or wheezes no abdominal pain, nausea or vomiting, diarrhea or constipation no dysuria, hematuria or frequency Right lower extremity foul smell dressing on the foot gangrenous appearance no back pain, CVA tenderness or radicular pain no bruising, bleeding or rashes no focal signs of weakness or numbness or altered sensation no complaints of anxiety or depression.. Physical Exam Physical Exam: The patient appeared well nourished and normally developed. Vital signs as documented. Head exam is normocephalic atraumatic Neck is without JVD, thyromegaly, or carotid bruits. Lungs are clear to auscultation, no focal loss of breath sounds Cardiac exam, Rhythm is regular.. No murmurs, rubs or gallops. Abdominal exam reveals normal bowel sounds, soft non tender, no masses Right lower extremity previous graft removal site is well-healed his distal leg is changed chronic venous stasis and gangrene is present on his heel Neurologic exam is alert and oriented, distal neuropathy is present Skin is with sniffing infectious change distally to his right leg Psychologically is without concerns for anxiety or depression Results & Data Results & Data ([facility]) Vital Signs (Past 12 Hours) Vital Signs Temp Pulse Resp BP Pulse Ox 07/01/21 08:04 99.5 F 79 16 125/72 96 07/01/21 03:52 99.1 F 80 16 129/77 93 06/30/21 22:44 98.4 F 73 18 113/68 95 PG Care Time/CCT Total # of Minutes Spent Total Time Spent with Patient: Total time spent is greater than 50% in coordination of care (as documented) at patient's floor/unit and/or counseling patient: Coding Level of Care Code 81172 Subseq Hosp Care Lvl 3 Diagnoses Dry gangrene I96 Acute hyponatremia E87.1 Iron deficiency E61.1 Folate deficiency E53.8 Peripheral arterial disease I73.9 Clostridium difficile colitis A04.72 Diabetes type 1, controlled E10.9 Hypokalemia E87.6
--- NOTE | 2021-07-01 08:28 | XRay Report ---
TWO VIEW CHEST CLINICAL HISTORY: Sepsis. FINDINGS: AP and lateral chest radiographs are compared to study performed earlier the same day 06/30. The AP views degraded by apical lordotic positioning. The patient is status post midline little otomy and cardiac valve surgery. The heart is mildly enlarged noting atherosclerotic calcification of the thoracic aorta. The pulmonary vasculature is noncongested. Chronic interstitial thickening is si milar to previous. Scarring/atelectasis is noted at the lung bases, with elevation right hemidiaphrag m and subsegmental atelectasis at the right lung base. No airspace consolidation typical for pneumoni a or large pleural effusion is identified. There is no pneumothorax. The skeletal structures are oste openic. The bony thorax appears intact. IMPRESSION: Mild cardiomegaly with no acute cardiopulmonary abnormality. ACT 112: Negative or not required by law. Electronically signed by: Tae Pizarro M.D. 07/01/2021 8:26 AM
[2021-07-01] MEDS: ASPIRIN 81 MG ECTAB PO SCH (08:52)
[2021-07-01] MEDS: CLOPIDOGREL BISULFATE 75 MG TAB PO SCH (08:52)
[2021-07-01] MEDS: RASPBERRY SYRUP 5 ML UDP PO SCH ×2 (08:54→20:56)
[2021-07-01] MEDS: VANCOMYCIN HCL 125 MG/2.5ML SOLN PO SCH ×2 (08:55→21:02)
[2021-07-01] MEDS: CALCITRIOL 0.25 MCG CAPSULE PO SCH (08:56)
[2021-07-01] MEDS: POTASSIUM CHLORIDE CRTAB 20 MEQ TABCR PO SCH ×2 (08:57→20:54)
[2021-07-01] MEDS: FOLIC ACID 1 MG TAB PO SCH (08:58)
[2021-07-01] MEDS: METOPROLOL TARTRATE 25 MG TAB PO SCH ×2 (08:59→20:56)
[2021-07-01] MEDS: PANTOprazole 40 MG TAB PO SCH (09:00)
[2021-07-01] MEDS: FERROUS SULFATE 325 MG TAB PO SCH ×2 (09:00→20:56)
[2021-07-01] MEDS ORDERED: CHLORTHALIDONE 25 MG TAB PO SCH (09:00)
[2021-07-01 09:28] LABS: Potassium 2.7 mmol/L (3.5-5.1)
[2021-07-01] MEDS ORDERED: OPTIRAY 320 125ml IV ONE (10:11)
--- NOTE | 2021-07-01 10:52 | CT Scan Report ---
CT ANGIOGRAPHY OF THE RIGHT LOWER EXTREMITY CLINICAL HISTORY: Possible infected graft. Right leg pain. COMPARISON STUDY: CTA of the right lower extremity January 20, 2021. Right lower extremity arterial Dopp ler ultrasound January 25, 2021. Right foot radiographs June 30, 2021. TECHNIQUE: Helical axial images of the right lower extremity were obtained during arterial phase foll owing intravenous injection of 120 cc Optiray 320 IV. Sagittal and coronal reconstructions were viewe d as well as maximal intensity projections on an independent 3-D workstation. Automated exposure cont rol was utilized for the study. A dose lowering technique was utilized adhering to the principles of ALARA. FINDINGS: Old deformity of the right iliac bone is noted. There are old, healed fractures of the righ t tibia and fibula. Note is made of extensive gas within the right foot and ankle as shown on radiogr aphs. Wound overlying the calcaneus is partially imaged on this exam. Multifocal osteomyelitis within the right foot and ankle is noted, including bony erosions within the calcaneus, distal right fibula as well as the adjacent talus and the distal phalanx of the right fifth toe which contains gas. Gas and fluid containing collection along the plantar muscles suggest an abscess. Fluid and gas extends a long the distal Achilles. Right common iliac artery stent is patent. A dissection within the right external iliac artery is aga in noted. This was shown on prior CT of January 20, 2021. Mild dilatation of the right common femoral art kera is unchanged. Note is again made of an occluded right femoral to posterior tibial bypass graft, a s shown on prior CT. There is extensive plaque with occlusion of the [place] right superficial femoral artery. There is distal reconstitution within the right calf vessels which are suboptimally assessed given their small size and extensive plaque. Severe multifocal stenoses within the right anterior ti bial, posterior tibial and peroneal arteries are noted. There is no infiltration adjacent to the blanca t to suggest an infected graft by CT. IMPRESSION: 1. Findings consistent with severe infectious process within the right ankle and foot, as described a karissa. Multifocal osteomyelitis involving the right calcaneus, distal fibula, talus and distal phalanx of the right fifth toe. Wound overlying the calcaneus. Extensive soft tissue gas suggestive a gas-fo rming infectious process with associated abscess along the flexor musculature. 2. 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 No CT findings to suggest graft infecti on. 3. Chronic occlusion of the [place] right superficial femoral artery with distal reconstitution throug h collaterals, as described above. Severe multifocal stenoses within the right calf vessels which are suboptimally assessed due to their small size and extensive calcified plaque. ACT 112: Negative or not required by law. Electronically signed by: Benji Oconnell M.D. 07/01/2021 10:50 AM
[2021-07-01] MEDS ORDERED: POTASSIUM CHLORIDE 10 MEQ / 100ML WTR IV STA (11:28)
[2021-07-01] MEDS: POTASSIUM CHLORIDE / WTR 10 MEQ/100 ML PLCT IV SCH ×2 (12:38→14:31)
[2021-07-01] MEDS ORDERED: MIDAZOLAM HCL 1 MG/ML 2ML VIAL ONE (12:48)
[2021-07-01] MEDS ORDERED: fentaNYL citrate 100 MCG/2 ML VIAL ONE ×2 (12:48→18:01)
[2021-07-01] MEDS ORDERED: PROPOFOL IV EMULSION 10 MG/ML 20 ML VIAL IV ONE (13:00)
[2021-07-01] MEDS ORDERED: ePHEDrine sulfate 50 MG/ML SYR ONE ×2 (13:00→18:04)
[2021-07-01] MEDS ORDERED: NEOSTIGMINE METHYLSULFATE 1 MG/ML 10ML VIAL ONE (13:00)
[2021-07-01] MEDS ORDERED: PHENYLEPHRINE 100MCG/ML 5ML SYR ONE ×2 (13:00→16:20)
[2021-07-01] MEDS ORDERED: ONDANSETRON INJ 2 MG/ML 2 ML VIAL ONE (13:00)
[2021-07-01] MEDS ORDERED: LARYING-O-JET KIT (LTA) ONE (13:00)
[2021-07-01] MEDS ORDERED: LIDOCAINE 2% 2 ML VIAL/AMP(20MG/ML) INFIL ONE (13:00)
[2021-07-01] MEDS ORDERED: ROCURONIUM BROMIDE 10 MG/ML 5 ML VIAL IV ONE (13:00)
[2021-07-01] MEDS ORDERED: GLYCOPYRROLATE 0.2 MG/ML VIAL ONE (13:00)
--- NOTE | 2021-07-01 13:01 | Electrocardiogram Report ---
Test Reason : Blood Pressure : / mmHG Vent. Rate : 086 BPM Atrial Rate : 086 BPM P-R Int : 168 ms QRS Dur : 150 ms QT Int : 424 ms P-R-T Axes : 050 038 011 degrees QTc Int : 507 ms Normal sinus rhythm Right bundle branch block Possible Inferior infarct (cited on or before 31-JUL-2020) Abnormal ECG When compared with ECG of 22-MAR-2021 11:00, Premature atrial complexes are no longer Present Confirmed by Bobby Lance ([id number]) on 07/01/2021 1:00:56 PM Referred By: REFERRED SELF Confirmed By:Bobby Lance
[2021-07-01] MEDS ORDERED: POTASSIUM CHLORIDE CRTAB 20 MEQ TABCR PO ONE (13:04)
--- NOTE | 2021-07-01 13:10 | Consultation ---
Date of Consultation July 01, 2021 History of Present Illness Attending Physician: Ron Mares MD History of Present Illness This is a 66-year-old gentleman with very well-known to our service. He has had a right femoral to posterior tibial prosthetic bypass in the past. He was admitted at this time for leukocytosis fever and increasing pain in the foot. His prosthetic graft from just above the knee distally was removed earlier this year. I did order a CT scan today to look at the rest of the graft. The remaining graft in the thigh looks good without any surrounding fluid. There is no evidence of any graft infection on the CT scan. From above the knee distally all the graft material was removed in the past. No vascular intervention is needed at this time. Patient is to undergo a below- knee amputation later today. Thank you very much for letting us participate in the care of this patient. Allergies Allergy/AdvReac Type Severity Reaction Status Date / Time No Known Allergies Allergy Unknown Verified 06/30/21 11:59 Home Medications Medication Instructions Recorded Confirmed Type atorvastatin 80 mg tablet (Lipitor) 80 mg PO HS #90 tab 11/25/20 06/30/21 Rx clopidogrel 75 mg tablet (Plavix) 75 mg PO QAM #30 tab 01/28/21 06/30/21 Rx metoprolol tartrate 25 mg tablet 12.5 mg PO BID #90 tab 02/09/21 06/30/21 Rx potassium chloride 20 mEq 20 meq PO BID #60 tab 02/22/21 06/30/21 Rx tablet,extended release ferrous sulfate 325 mg (65 mg 325 mg PO BID #60 tab 04/07/21 06/30/21 Rx iron) tablet,delayed release folic acid 1 mg tablet 1 mg PO QAM #30 tab 04/07/21 06/30/21 Rx calcitriol 0.25 mcg capsule 0.25 mcg PO QAM #30 cap 04/27/21 06/30/21 Rx (Rocaltrol) aspirin 81 mg tablet,delayed 81 mg PO QAM 05/04/21 06/30/21 History release (Aspirin Low Dose) oxycodone 5 mg tablet 5 mg PO TID PRN #30 tab 05/13/21 06/30/21 Rx chlorthalidone 25 mg tablet 25 mg PO QAM #90 tab 05/19/21 06/30/21 Rx hydrocortisone 2.5 % topical cream 1 applic EXT BID Days #30 g 05/20/21 06/30/21 Rx with perineal applicator (Proctosol HC) pantoprazole 40 mg tablet,delayed 40 mg PO QAM #30 tab 06/15/21 06/30/21 Rx release (Protonix) insulin aspart U-100 100 unit/mL 60 unit SQ CONT 06/30/21 06/30/21 History subcutaneous solution (Novolog U-100 Insulin aspart) levothyroxine 175 mcg tablet 175 mcg PO QAM 06/30/21 06/30/21 History (Synthroid) vancomycin 125 mg capsule 125 mg PO DIRECTED 06/30/21 06/30/21 History Patient History Medical History Acute proctitis Aortic stenosis s/p porcine valve replacement (2015) with CABG x 1 CAD (coronary artery disease) s/p CABG x 1 (2015) CKD (chronic kidney disease) stage 2, GFR 60-89 ml/min Clostridium difficile infection Diabetes mellitus type 1 + Insulin pump Diabetic nephropathy associated with type 1 diabetes mellitus Dyslipidemia GERD (gastroesophageal reflux disease) Hypertension Hypothyroidism Insulin pump in place Osteoarthritis Osteoporosis Proliferative diabetic retinopathy associated with type 1 diabetes mellitus PVD (peripheral vascular disease) s/p B/L iliac artery stents (2014), R common/external iliac (2017), R common femoral endarterectomy (11/2018) with bovine patch. Left femoral to PT composite bypass graft (06/2020) VRE infection (vancomycin resistant enterococcus), with multi-drug resistance Surgical History H/O cataract extraction R/L H/O endarterectomy R common femoral (11/2018) H/O vascular surgery Right Femoral to Posterior tibial Prosthetic Bypass Graft(Right) History of ankle surgery LEFT ANKLE +HARDWARE REMOVED History of aortic valve replacement 2016 [place] [place] History of arterial bypass of lower extremity Left femoral to PT composite bypass graft (06/2020) History of cardiac cath x2, most recent 2016 > no stents (subsequent CABG with AVR in 2016) History of carpal tunnel release R/L History of colonoscopy History of coronary artery bypass graft CABG x1 + AVR (2016) History of esophagogastroduodenoscopy (EGD) History of myringotomy History of open reduction and internal fixation (ORIF) procedure LLE () History of skin graft Split Thickness Skin Graft of Left Lateral Ankle (11/18/20): LMA#5, atraumatic x1 at [facility] History of tonsillectomy History of tooth extraction History of umbilical hernia repair Hx of surgical procedure Left Leg Wound Debridement and Irrigation S/P femoropopliteal bypass surgery Right fem-pop bypass graft (01/19/21): Grade 2 view, MAC 3.0, ETT 8.0 at [facility] S/P insertion of iliac artery stent B/L iliac stent placement (2014) 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 Family History Brother Family history of diabetes mellitus Sister Family history of diabetes mellitus Mother Family history of diabetes mellitus Grandmother (Maternal) Family history of diabetes mellitus Uncle Family hx of colon cancer Colorectal cancer Father Family history of esophageal cancer Sister Family history of diabetes mellitus Other No family history of adverse response to anesthesia Denies family history of Ovarian cancer Prostate cancer Myocardial infarction Breast cancer Social History Smoking Status: Former smoker Tobacco Type: Cigarettes and Smokeless Tobacco (Dip or Chew) Cigarettes Per Day: Quit 15 years ago; Second Hand Exposure: No; Hx Alcohol Use: No Hx Substance Use: No Preferred Language: Panamanian Communication Ability: Effective Visual Impairment: No Limitations Hearing Ability: Normal Mathematics Academic Chair Required: No Beliefs That Will Affect Care: None marital status: Current Living Situation: Other Current Living Situation Comment: roommate How many Children do You have: 2 Other Information That Helps Us Care for You: No Feels Safe at Home: Yes Safety Concerns: Feels Safe At This Time Childhood Exposure to Second-Hand Smoke: Yes Diet Comment: Carb Counts. ([id number], roughly), protein drinks caffeine: Yes (coffee, rarely ) during the past year weight has: remained stable Dental Care, Regularly: No Physical Activity Frequency: 1-2 Times per Week Seatbelt Use: always Sunscreen Use: No Gender Identity: Male Assistive Devices: Walker and Wheelchair Assistive Devices Comment: at home Results & Data ([facility]) Vital Signs (Past 12 Hours) Vital Signs Temp Pulse Resp BP Pulse Ox 07/01/21 10:56 38.2 C H 78 17 128/76 93 07/01/21 08:04 37.5 C 79 16 125/72 96 07/01/21 03:52 37.3 C 80 16 129/77 93
[2021-07-01 13:45] LABS: BUN Creatinine Ratio 16.5 (10-20); Calcium 8.6 mg/dl (8.5-10.1); Est GFR (African American) 106.2 ml/min; Est GFR (Non-African American) 91.6 ml/min
[2021-07-01] MEDS ORDERED: POTASSIUM CHLORIDE 40 MEQ in SODIUM CHLORIDE 0.45 % 1,000 ML IV SCH (14:00)
--- NOTE | 2021-07-01 14:23 | Anesthesiology Consultation ---
Date of Service July 01, 2021 Assessment & Plan (1) Encounter for pre-operative examination: Chart Review Chart Review: Acceptable Risk for Surgery and Patient NOT seen in Pre Admission Testing Covid neg 06/30/21. Ordered type and screen to be done STAT prior to surgery. Patient noted to be hypokalemic. K 2.7 this AM. Receiving potassium IV replacement per primary team. Spoke with attending physician and decided to do repeat PRP and K was 3. Discussed with director of corporate sponsorships anesthesia team and felt it was ok to proceed with surgery given that he has dry gangrene and needs his lower extremity amputated as soon as possible. Consults Requested none History Surgery Operation Date: 07/01/21 07:00 Proposed Procedures p Right Below Knee Amputation - Xander Soto MD Height/Weight Height: 5 ft 8 in Weight: 77.4 kg Allergies Allergy/AdvReac Type Severity Reaction Status Date / Time No Known Allergies Allergy Unknown Verified 06/30/21 11:59 Medications Home Medications Medication Instructions Recorded Confirmed Last Taken atorvastatin 80 mg tablet (Lipitor) 80 mg PO HS #90 tab 11/25/20 06/30/21 06/29/21 clopidogrel 75 mg tablet (Plavix) 75 mg PO QAM #30 tab 01/28/21 06/30/21 06/30/21 metoprolol tartrate 25 mg tablet 12.5 mg PO BID #90 tab 02/09/21 06/30/21 06/30/21 potassium chloride 20 mEq 20 meq PO BID #60 tab 02/22/21 06/30/21 06/30/21 tablet,extended release ferrous sulfate 325 mg (65 mg 325 mg PO BID #60 tab 04/07/21 06/30/21 06/30/21 iron) tablet,delayed release folic acid 1 mg tablet 1 mg PO QAM #30 tab 04/07/21 06/30/21 06/30/21 calcitriol 0.25 mcg capsule 0.25 mcg PO QAM #30 cap 04/27/21 06/30/21 06/30/21 (Rocaltrol) aspirin 81 mg tablet,delayed 81 mg PO QAM 05/04/21 06/30/21 06/30/21 release (Aspirin Low Dose) oxycodone 5 mg tablet 5 mg PO TID PRN #30 tab 05/13/21 06/30/21 Unknown chlorthalidone 25 mg tablet 25 mg PO QAM #90 tab 05/19/21 06/30/21 06/30/21 hydrocortisone 2.5 % topical cream 1 applic EXT BID 10 Days #30 g 05/20/21 06/30/21 06/30/21 with perineal applicator (Proctosol HC) pantoprazole 40 mg tablet,delayed 40 mg PO QAM #30 tab 06/15/21 06/30/21 06/30/21 release (Protonix) insulin aspart U-100 100 unit/mL 60 unit SQ CONT 06/30/21 06/30/21 06/30/21 subcutaneous solution (Novolog BSG 150@11:37 U-100 Insulin aspart) levothyroxine 175 mcg tablet 175 mcg PO QAM 06/30/21 06/30/21 06/30/21 (Synthroid) vancomycin 125 mg capsule 125 mg PO DIRECTED 06/30/21 06/30/21 06/30/21 Active Medications Generic Name Dose Route Start Last Admin Trade Name Freq PRN Reason Stop Dose Admin Aspirin 81 mg 07/01/21 09:00 07/01/21 08:52 Aspirin 81 Mg Ectab PO 07/31/21 08:59 Not Given QAM LIZZY Atorvastatin Calcium 80 mg 06/30/21 21:00 06/30/21 20:02 Atorvastatin 40 Mg Tab PO 07/30/21 20:59 80 mg HS LIZZY Administration Calcitriol 0.25 mcg 07/01/21 09:00 07/01/21 08:56 Calcitriol 0.25 Mcg Capsule PO 07/31/21 08:59 0.25 mcg QAM LIZZY Administration Clopidogrel Bisulfate 75 mg 07/01/21 09:00 07/01/21 08:52 Clopidogrel Bisulfate 75 Mg Tab PO 07/31/21 08:59 Not Given QAM LIZZY Ferrous Sulfate 325 mg 06/30/21 21:00 07/01/21 09:00 Ferrous Sulfate 325 Mg Tab PO 07/30/21 20:59 Not Given BID LIZZY Folic Acid 1 mg 07/01/21 09:00 07/01/21 08:58 Folic Acid 1 Mg Tab PO 07/31/21 08:59 1 mg QAM LIZZY Administration Piperacillin Sod/Tazobactam 115 mls @ 28.75 mls/hr 06/30/21 18:30 07/01/21 11:35 Sod 3.375 gm/ Dextrose IV 07/07/21 18:29 28.8 mls/hr Q8H LIZZY Administration Ondansetron HCl 8 mg/ Dextrose 54 mls @ 200 mls/hr 07/01/21 08:22 07/01/21 09:25 IV 07/31/21 08:21 Infused Q6H PRN Infusion Nausea And Vomiting Insulin Aspart 0 units 07/01/21 00:00 07/01/21 12:23 Insulin Aspart 100 Units/Ml 3 Ml Pen SC 07/31/21 00:00 Not Given Q4 LIZZY Levothyroxine Sodium 175 mcg 07/01/21 06:30 07/01/21 06:39 Levothyroxine Sodium 175 Mcg Tablet PO 07/31/21 06:29 175 mcg DAILYBB LIZZY Administration Metoprolol Tartrate 12.5 mg 06/30/21 21:00 07/01/21 08:59 Metoprolol Tartrate 25 Mg Tab PO 07/30/21 20:59 12.5 mg BID LIZZY Administration Pantoprazole Sodium 40 mg 07/01/21 09:00 07/01/21 09:00 Pantoprazole 40 Mg Tab PO 07/31/21 08:59 40 mg QAM LIZZY Administration Potassium Chloride 20 meq 06/30/21 17:00 07/01/21 08:57 Potassium Chloride Crtab 20 Meq Tabcr PO 07/30/21 16:59 20 meq BIDM LIZZY Administration Raspberry 5 ml 06/30/21 21:00 07/01/21 08:54 Raspberry Syrup 5 Ml Udp PO 07/01/21 23:59 5 ml BID LIZZY Administration Vancomycin HCl 125 mg 06/30/21 21:00 07/01/21 08:55 Vancomycin Hcl 125 Mg/2.5ml Soln PO 07/01/21 23:59 125 mg BID LIZZY Administration Past Medical History Medical History (Updated 07/01/21 @ 14:28 by Mak Arroyo MD) Acute proctitis Aortic stenosis s/p porcine valve replacement (2015) with CABG x 1 CAD (coronary artery disease) s/p CABG x 1 (2015) CKD (chronic kidney disease) stage 2, GFR 60-89 ml/min Clostridium difficile infection Diabetes mellitus type 1 + Insulin pump Diabetic nephropathy associated with type 1 diabetes mellitus Dyslipidemia Encounter for pre-operative examination GERD (gastroesophageal reflux disease) Hypertension Hypothyroidism Insulin pump in place Osteoarthritis Osteoporosis Proliferative diabetic retinopathy associated with type 1 diabetes mellitus PVD (peripheral vascular disease) s/p B/L iliac artery stents (2014), R common/external iliac (2017), R common femoral endarterectomy (11/2018) with bovine patch. Left femoral to PT composite bypass graft (06/2020) VRE infection (vancomycin resistant enterococcus), with multi-drug resistance Exercise / Class Metabolic Activity III < 4 Walking/Shop/Light housework Past Family History Family History Brother Family history of diabetes mellitus Sister Family history of diabetes mellitus Mother Family history of diabetes mellitus Grandmother (Maternal) Family history of diabetes mellitus Uncle Family hx of colon cancer Colorectal cancer Father Family history of esophageal cancer Sister Family history of diabetes mellitus Other No family history of adverse response to anesthesia Denies family history of Ovarian cancer Prostate cancer Myocardial infarction Breast cancer Past Surgical History Surgical History H/O cataract extraction R/L H/O endarterectomy R common femoral (11/2018) H/O vascular surgery Right Femoral to Posterior tibial Prosthetic Bypass Graft(Right) History of ankle surgery LEFT ANKLE +HARDWARE REMOVED History of aortic valve replacement 2016 ([facility]) History of arterial bypass of lower extremity Left femoral to PT composite bypass graft (06/2020) History of cardiac cath x2, most recent 2016 > no stents (subsequent CABG with AVR in 2016) History of carpal tunnel release R/L History of colonoscopy History of coronary artery bypass graft CABG x1 + AVR (2016) History of esophagogastroduodenoscopy (EGD) History of myringotomy History of open reduction and internal fixation (ORIF) procedure LLE () History of skin graft Split Thickness Skin Graft of Left Lateral Ankle (11/18/20): LMA#5, atraumatic x1 at [facility] History of tonsillectomy History of tooth extraction History of umbilical hernia repair Hx of surgical procedure Left Leg Wound Debridement and Irrigation S/P femoropopliteal bypass surgery Right fem-pop bypass graft (01/19/21): Grade 2 view, MAC 3.0, ETT 8.0 at [facility] S/P insertion of iliac artery stent B/L iliac stent placement (2014) 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 11. Aortic valve replacement and CABG x1 at [facility] 10/29/2015: AVR with 25 mm Hill II porcine bioprosthesis. SVG to PDA. (Right LE vein harvest). Was taken back to OR for nonfunctioning chest tube drains. 12. Echo 01/08/2016: Normal LV size and systolic function. EF 65-70%. No definite regional wall motion abnormalities. Mild LVH. Appropriately functioning bioprosthetic aortic valve without significant regurgitation. Pericardial effusion (Trivial) has nearly resolved compared to 11/10/15. 13. Right lower extremity angiography and intervention 05/18/2018: Right common/external iliac 8 x 59 mm bare metal stent placed by Dr. Eason. 14. Right common femoral artery endarterectomy with bovine patch 12/07/2018 (Dr. Eason). 15. Echo 11/13/2019 at [facility]: Normal LV systolic function, size, wall motion. EF 60-65%. Moderate LVH. Mild TR. 16. Left lower extremity arterial bypass June 2020 (Dr. Eason): Left femoral to posterior tibialis artery composite bypass graft. 17. Echo 11/20/2020 [facility]: Normal LV systolic function and wall motion. EF 55- 60%. Mild biatrial dilation. Moderate MAC. Bioprosthetic aortic valve (insufficient Doppler). 18. Right lower extremity arterial bypass 01/19/2021 (Dr. Eason): Femoral artery to posterior all tibial prosthetic bypass graft. 19. Removal of right fem-pop bypass 03/23/2021 (Dr. Eason): Graft was noted to be occluded. There was concern for infection. Social History Smoking Status: Former smoker tobacco type: cigarettes Smoking cigarettes per day: Quit 15 years ago Hx Alcohol Use: No Alcohol type: beer alcohol intake frequency: holidays/special occasions only Hx Substance Use: No substance use type: does not use Physical Exam Vital Signs Last Vital Signs Temp 38.2 C H 07/01/21 10:56 Pulse 78 07/01/21 10:56 Resp 17 07/01/21 10:56 BP 128/76 07/01/21 10:56 Pulse Ox 93 07/01/21 10:56 Testing Laboratory Results 07/01/21 06:28 07/01/21 13:15 PT 11.6 Seconds (9.0-12.0) 06/30/21 12:24 INR 1.2 (0.9-1.1) H 06/30/21 12:24 APTT 27.8 Seconds (21.0-31.0) 06/30/21 12:24 Hemoglobin A1c 8.7 % (4.5-5.6) H 07/01/21 06:28 Urine Color Yellow 06/30/21 19:30 Urine Appearance Clear (Clear) 06/30/21 19:30 Urine pH 6.5 (4.5-7.5) 06/30/21 19:30 Ur Specific [place] 1.011 (1.000-1.030) 06/30/21 19:30 Urine Protein Negative (Negative) 06/30/21 19:30 Urine Glucose (UA) Negative (Negative) 06/30/21 19:30 Urine Ketones Negative (Negative) 06/30/21 19:30 Urine Nitrite Negative (Negative) 06/30/21 19:30 Ur Leukocyte Esterase Negative (Negative) 06/30/21 19:30 06/30/21 12:30 Aerobic Blood Culture - Preliminary Blood No growth in Aerobic bottle after 24 hours. Anaerobic Blood Culture - Preliminary Gram positive cocci in chains 06/30/21 12:24 Aerobic Blood Culture - Preliminary Blood No growth in Aerobic bottle after 24 hours. Anaerobic Blood Culture - Preliminary Gram positive cocci in chains 07/01/21 07/01/21 07/01/21 12:15 08:03 03:50 POC Glucose 136 H 121 H 85 Electrocardiogram DICTATED BY: Bobby Lance MD Test Reason : Blood Pressure : / mmHG Vent. Rate : 086 BPM Atrial Rate : 086 BPM P-R Int : 168 ms QRS Dur : 150 ms QT Int : 424 ms P-R-T Axes : 050 038 011 degrees QTc Int : 507 ms Normal sinus rhythm Right bundle branch block Possible Inferior infarct (cited on or before 31-JUL-2020) Abnormal ECG When compared with ECG of 22-MAR-2021 11:00, Premature atrial complexes are no longer Present Confirmed by Bobby Lance ([id number]) on 07/01/2021 1:00:56 PM Chest X-Ray Date: 06/30/21 TWO VIEW CHEST CLINICAL HISTORY: Sepsis. FINDINGS: AP and lateral chest radiographs are compared to study performed earlier the same day 06/30/2021. The AP views degraded by apical lordotic positioning. The patient is status post midline sternotomy and cardiac valve surgery. The heart is mildly enlarged noting atherosclerotic calcification of the thoracic aorta. The pulmonary vasculature is noncongested. Chronic interstitial thickening is similar to previous. Scarring/atelectasis is noted at the lung bases, with elevation right hemidiaphragm and subsegmental atelectasis at the right lung base. No airspace consolidation typical for pneumonia or large pleural effusion is identified. There is no pneumothorax. The skeletal structures are osteopenic. The bony thorax appears intact. IMPRESSION: Mild cardiomegaly with no acute cardiopulmonary abnormality.
--- NOTE | 2021-07-01 14:31 | History & Physical Bridge Note ---
Date of Service July 01, 2021 History & Physical Bridge Note I have examined the patient, reviewed the History & Physical and in the interval since the performance of the History & Physical I have noted the following changes of clinical significance: no changes noted, repeat k 3.0, ct results noted.
--- NOTE | 2021-07-01 14:55 | Pharmacy Report ---
Pharmacy Glycemic Short Note 2 - Date of Service July 01, 2021 - Glycemic Short BSG Results (Last 24 hours): 06/30/21 06/30/21 07/01/21 18:48 23:29 03:50 Glucose POC Glucose 147 H 224 H 85 07/01/21 07/01/21 07/01/21 06:28 08:03 12:15 Glucose 116 H POC Glucose 121 H 136 H 07/01/21 07/01/21 13:15 14:41 Glucose 140 H POC Glucose 130 H OUTPATIENT ANTIDIABETIC REGIMEN: * Novolog pump * Basal rate = 1.65 units/hr or ~40 units/day * CF 30 * CR 6 * HbA1c: 8.7% (07/01/21) ASSESSMENT: 07/01/21: * BSGs have been relatively well-controlled since stopping pt's insulin pump and transitioning to SQ basal/bolus insulin. * Pt is NPO and is going to the OR today for R BKA. * Will strive to maintain relatively tight glycemic control to promote wound healing and discourage infection. 06/30 * Mr Chowdhury is a 66 y/o M with a PMH of T1DM who presents with worsening foot infection. He is typically maintained on an insulin pump with above settings. * Spoke with the patient whenever he was admitted. His insulin pump was disconnected at 1800 (approximately 45 hours before I spoke to him). He does not have the supplies so would prefer basal bolus. * After reviewing previous admission, noticed that patient did well on regimen of Lantus 15 units in morning and 35 units in evening. There is no data whenever patient is NPO. Find it reasonable to start the above regimen with 35 units tonight then insulin tomorrow morning can be adjusted to how patient responds. * Novolog will be q4 after midnight to ensure adequate glucose control prior to proposed surgery. PLAN FOR INPATIENT GLYCEMIC CONTROL: * Basal insulin * Lantus 20 units SQ BID * Bolus insulin * NovoLog per scale ACHS or Q6hrs while NPO * Goal Range: Low 110 mg/dL - High 140 mg/dL * Correction Factor: 20 mg/dL/unit * Nutritional / Prandial insulin per carb ratio of 1 unit per 4 grams CHO consumed PLAN FOR DISCHARGE: * HbA1C within goal range for patient so recommend continuing current regimen.
[2021-07-01] MEDS ORDERED: POTASSIUM CHLORIDE / WTR 10 MEQ/100 ML PLCT IV ONE (15:27)
[2021-07-01] MEDS ORDERED: HYDROmorphone INJ 2 MG/ML SYR/VIAL IV PRN (15:36)
[2021-07-01] MEDS ORDERED: ONDANSETRON INJ 2 MG/ML 2 ML VIAL IV PRN (15:36)
[2021-07-01] MEDS ORDERED: fentaNYL citrate 100 MCG/2 ML VIAL IV PRN (15:36)
[2021-07-01] MEDS ORDERED: ePHEDrine sulfate 50 MG/ML AMP IV PRN (15:36)
[2021-07-01] MEDS ORDERED: ATROPINE SULFATE 0.1 MG/ML 10ML SYR IV PRN (15:36)
[2021-07-01] MEDS ORDERED: ceFAZolin 1000MG 1,000 MG/7.5 ML SYR IV ONE ×2 (16:29→20:30)
[2021-07-01] MEDS ORDERED: PHENYLEPHRINE HCL 10 MG/ML VIAL ONE (17:32)
[2021-07-01] MEDS ORDERED: TRANEXAMIC ACID 1,000 MG **IV Intra-op IV ONE (17:45)
[2021-07-01] MEDS ORDERED: BUPIVACAINE 0.5 % 5 MG/1 ML MPF 30ML VIAL ONE (18:07)
[2021-07-01] MEDS ORDERED: LIDOCAINE 1% LOCAL 20 ML VIAL ONE (18:08)
--- NOTE | 2021-07-01 18:11 | Fluoroscopy Report ---
FL tibia/fibula RT 2V CLINICAL HISTORY: Right [id number] amputation. COMPARISON STUDY: None. FLUOROSCOPY TIME: 8 seconds. FINDINGS: 4 fluoroscopic spot images of the right tibia/fibular were submitted. There are postoperati ve changes consistent with a below the knee amputation. IMPRESSION: Fluoroscopy provided for right below the knee amputation. ACT 112: Negative or not required by law. Electronically signed by: Otf Avila M.D. 07/01/2021 6:10 PM
--- NOTE | 2021-07-01 18:53 | Operative Report ---
Post Operative Report Pre & Post Diagnosis Operation Date: 07/01/21 07:00 Pre-Op Diagnosis: Necrotic gangrenous right foot with osteomyelitis Post-Op Diagnosis: Necrotic gangrenous right foot with osteomyelitis I identified the patient and participated in the time-out.: Yes Procedure Operation Date: 07/01/21 07:00 Actual Procedures p Right Below Knee Amputation(Right) - Xander Soto MD Surgeon Xander Soto MD Straightedge Machine Operator Helper Cori Graves, no resident or fellow available. Estimated Blood Loss 250 Findings Consistent with Post-Op Diagnosis Specimens Amputated right leg below the knee Drains Hemovac x1 Anesthesia Type General Regional Complications none Disposition Accompanied Patient To Recovery: No Disposition: Recovery Room Indications Mr. Chowdhury is 66 years old. He has significant health problems including diabetes and severe peripheral vascular disease. He is status post attempted revascularization of the right lower extremity which unfortunately did not work. He has developed ischemic necrosis of his toes and the heel resulting in a combination of diabetic and dysvascular skin breakdown resulting in chronic nonhealing wounds. He has been apprised of his treatment options. He elected to proceed with a below-knee versus an above-knee amputation. He preferred to have a below-knee amputation done. He had a nonhealing wound from his bypass graft. This required removal of the graft below the knee and a wound VAC to get this wound to heal and become stabilized. This is taken several weeks for this to happen prior to being able to proceed with a below-knee amputation. Description of Procedure Informed consent obtained. Patient identified. He identified the operative site as the right leg which I marked with my initials. A preoperative surgical timeout was performed and preop dose of IV antibiotics was given. He was taken to the operating room positioned supine on the OR table. No tourniquet was utilized. The right leg was prescrubbed Betadine and then prepped with Betadine and draped in usual sterile fashion. DVT prophylaxis intraoperatively with mechanical devices. Postoperatively early mobility and chemoprophylaxis if appropriate. Fluoroscopic guidance was utilized. The foot showed ischemia plantarly and distally. There was ischemia of the little toe and a large wound of the heel which was necrotic. The upper half of the leg looks fine. The medial wound was completely healed. I marked out a bone resection 12-1/2 cm distal to the medial joint line. I measured the anterior posterior width of the leg at this level to be 11 cm and I marked out a posterior skin flap of that dimension. I then went ahead and made an incision 1 cm distal to the planned bone resection. This was carried sharply through the skin and electrocautery was utilized to achieve hemostasis as appropriate. This was carried down to join the prior medial surgical incision and then distally and posteriorly. Likewise on the lateral side that incision was made. Electrocautery was utilized down to the subcutaneous tissues and carefully through the anterior compartment muscles. The anterior tibial artery was identified and double ligated. This had mild bleeding. There was generally a lot of oozing. The vessels were hard and calcified. Ligation was done with 0 s ilk and then also with 2-0 silk stick ties. The remainder the anterior compartment musculature was then divided at the level of the proposed bone resection. I then identified the lateral compartment muscles and I did the same ligating the peroneal vessel which was very pinpoint bleeding. I then went ahead and recheck the bone. Made a transection of the tibia 12 to 12-1/2 cm distal to the medial joint line. This was beveled at its anterior crest and smoothed with a rasp. The fibula had been broken previously as had the tibia distally. The fibula proximally was deformed. I exposed the fibula 1 cm proximal to the tibia cut and transected this and then also debrided with a rongeur to remove bony prominences let lateral and anterior. The remainder of the lateral compartment musculature was then incised. Subsequently the deep posterior compartment was divided with Bovie electrocautery. The nerves were identified if possible transected and allowed to retract in all compartments. M uscle was punctate bleeding throughout and salmon-colored. Not normal-appearing muscle. There was a significant amount of scarring medially due to the prior bypass graft which was not encountered. The vessels were identified double ligated and transected. The tibial and superficial and deep peroneal nerves were transected and allowed to retract. The interval between the superficial posterior compartment and the supposed deep posterior compartment was identified and this was dissected distally and the superficial muscles were transected distally. The specimen was then passed off the table. Meticulous hemostasis was then performed with cautery silk ligatures and stick ties as appropriate. The distal portion of the posterior flap was beveled to eliminate bulk. The flap was perfect for a tension-free closure. Copious irrigation was performed. A gram of TXA was given which helped with the general oozing. The superficial posterior fascia was brought up to the superficial anterior fascia and using interrupted #1 Vicryl's this was repaired. A large Hemovac drain was inserted deep and brought out the distal stump. I then closed the skin with 2-0 Vicryl's and sharri. The far medial portion because of the scarring was closed with interrupted nylon sutures. There was good circulation in the flap. Local anesthetic 1% lidocaine and half percent Marcaine approximately 15 cc was injected into the skin incision at the conclusion for local analgesia. The leg was cleaned wet and dry sponges and a bulky soft sterile dressing was applied Xeroform 4 x 4's ABD cast padding followed by a sugar tong type posterior distal and anterior slab splint with 4 oh Ortho-Glass. This was then overwrapped with an James wrap. The drain was left out for easy removal. The resected the limb was sent for specimen. There were no complications. Counts were correct. Blood loss is estimated to be 250 cc. At the conclusion the operation I contacted his daughter and discussed with her my findings and recommendations as well as the postoperative treatment plan. He will be admitted to the floor. Drain will be pulled approximately 1 day postop and he will have continued IV antibiotics per medicine. I attest to the content of the Intraoperative Record and any orders documented therein. Any exceptions are noted below.
--- NOTE | 2021-07-01 19:26 | Anesthesiology Progress Note ---
Date of Service July 01, 2021 Anesthesia Post Procedure Vital Signs Vital Signs: Temp Pulse Pulse Resp BP Pulse Ox 07/01/21 19:10 84 14 111/57 L 96 07/01/21 19:00 86 18 112/58 L 100 07/01/21 18:50 87 20 114/52 L 97 07/01/21 18:41 36.4 C L 85 14 101/51 L 97 07/01/21 10:56 38.2 C H 78 17 128/76 93 07/01/21 08:04 37.5 C 79 16 125/72 96 07/01/21 03:52 37.3 C 80 16 129/77 93 06/30/21 22:44 36.9 C 73 18 113/68 95 06/30/21 20:00 75 106/66 Transfer of Care Handoff Completed per policy Notes Mental Status: alert / awake / arousable and participated in evaluation Patient Amnestic to Procedure: Yes Nausea / Vomiting: adequately controlled Pain: adequately controlled Airway Patency, RR, SpO2: stable & adequate BP & HR: stable & adequate Hydration State: stable & adequate Anesthetic Complications: no major complications apparent and Pt Satisfied with anesthetic care
[2021-07-01 20:05] LABS: Hematocrit (blood only) 30.2 % (42-52); Hemoglobin 9.5 g/dL (14.0-18.0)
[2021-07-01 20:23] LABS: BUN Creatinine Ratio 16.5 (10-20); Calcium 8.4 mg/dl (8.5-10.1); Est GFR (African American) 107.8 ml/min; Potassium 3.1 mmol/L (3.5-5.1)
[2021-07-01] MEDS: ATORVASTATIN 40 MG TAB PO SCH (20:55)
[2021-07-01] MEDS: oxyCODONE HCL IR 5 MG TAB (IMMEDIATE RELEASE) PO PRN (20:57)
[2021-07-01] MEDS: INSULIN GLARGINE SOLOSTAR 100 UNITS/ML 3 ML PEN SC SCH (21:03)
[2021-07-02] MEDS: INSULIN ASPART 100 UNITS/ML 3 ML PEN SC SCH ×6 (00:27→20:56)
[2021-07-02] MEDS: oxyCODONE HCL IR 5 MG TAB (IMMEDIATE RELEASE) PO PRN ×4 (02:13→17:01)
[2021-07-02] MEDS: PIPERACILLIN/TAZOBACTAM 3.375 GM in DEXTROSE 5% 100 ML IV SCH ×3 (03:02→20:47)
[2021-07-02] MEDS: LEVOTHYROXINE SODIUM 175 MCG TABLET PO SCH (04:18)
[2021-07-02 07:11] LABS: Basophils # (auto) 0.01 K/uL (0-0.2); Basophils % (auto) 0.1 %; Eosinophils # (auto) 0.12 K/uL (0-0.5); Eosinophils % (auto) 1.4 %; Hematocrit (blood only) 26.8 % (42-52); Hemoglobin 8.8 g/dL (14.0-18.0); Immature Granulocytes # (auto) 0.02 K/uL (0.00-0.02); Immature Granulocytes % (auto) 0.2 %; Lymphocytes # (auto) 1.75 K/uL (1.2-3.4); Lymphocytes % (auto) 19.7 %; Mean Corpuscular Hemoglobin 25.8 pg (25-34); Mean Corpuscular Hgb Conc 32.8 g/dL (32-36); Mean Corpuscular Volume 78.6 fL (80-100); Mean Platelet Volume 8.6 fL (7.4-10.4); Monocytes # (auto) 0.74 K/uL (0.11-0.59); Monocytes % (auto) 8.3 %; Neutrophils # (auto) 6.24 K/uL (1.4-6.5); Neutrophils % (auto) 70.3 %; Platelet Count 469 K/uL (130-400); RDW Coefficient of Variation 15.5 % (11.5-14.5); RDW Standard Deviation 45.3 fL (36.4-46.3); Red Blood Count 3.41 M/uL (4.7-6.1); White Blood Count 8.88 K/uL (4.8-10.8)
--- NOTE | 2021-07-02 07:22 | Hospitalist Progress Note ---
Date of Service July 02, 2021 Assessment & Plan (1) Dry gangrene: Plan: Patient appears to have above diagnosis. Patient will likely benefit from BKA of affected limb. Given elevated WBC, concern for possibility of sepsis, r Revascularization 01/19/21 initially successful but Graft occluded.progressed to BKA -C.diff asppears to be controlled as patient no longer is having diarrhea. This should not preculde him from having the procedure. continue vanco IV and IV zosyn, preliminary is enterococcus, in the past VRE Prior to the procedure patient resulted 2 of 2 cultures with gram-positive cocci in chains, preliminary Enterococcus, will check echo (2) Acute hyponatremia: Plan: will monitor sodium improved to 129 from 126 Will continue to hold thiazide diuretic and monitor. hypokalemia, increase oral agents, add magnesium iv (3) Iron deficiency: Plan: hemoglobin is at 12. will hold further iron studies at the moment. (4) Folate deficiency: Plan: layla resume folic acid (5) Peripheral arterial disease: Plan: as stated above. will hold plavix/asa contine atorvastatin (6) Clostridium difficile colitis: Plan: fnisnishing up a taper of vancomycin. No longer having diarrhea. Now on 7 days of vanco PO BID. Unsure which day he is on, his will call tomorrow with that information. Once he completes the 7 days, he will be on a daily dose for 7 days. (7) Diabetes type 1, controlled: Plan: continue insulin pump. consulted glycemic control (8) Hypokalemia: Plan: increase po dosing additional magnesium (9) Anemia: Plan: acute blood loss anemia in the post operative setting (10) DVT prophylaxis: Plan: heparin sc started, if stable also restart DAPT Admission and Anticipated Discharge Date Admission Date: June 30, 2021 Subjective Patient doing well postoperatively pain is plus minus controlled with 1 escalate his pain control medications. Potassium still with need to be replete Review of Systems Review of Systems: Mild distress and fatigue no headache, no visual changes no speech or swallowing issues no chest pain, pressure or palpitations no shortness of breath, cough or wheezes no abdominal pain, nausea or vomiting, diarrhea or constipation no dysuria, hematuria or frequency Right lower extremity foul smell dressing on the foot gangrenous appearance no back pain, CVA tenderness or radicular pain no bruising, bleeding or rashes no focal signs of weakness or numbness or altered sensation no complaints of anxiety or depression.. Physical Exam Physical Exam: The patient appeared well nourished and normally developed. Vital signs as documented. Head exam is normocephalic atraumatic Neck is without JVD, thyromegaly, or carotid bruits. Lungs are clear to auscultation, no focal loss of breath sounds Cardiac exam, Rhythm is regular.. No murmurs, rubs or gallops. Abdominal exam reveals normal bowel sounds, soft non tender, no masses Right lower extremity previous graft removal site is well-healed his distal leg is changed chronic venous stasis and gangrene is present on his heel Neurologic exam is alert and oriented, distal neuropathy is present Skin is with sniffing infectious change distally to his right leg Psychologically is without concerns for anxiety or depression Results & Data Results & Data ([facility]) Vital Signs (Past 12 Hours) Vital Signs Temp Pulse Pulse Resp BP Pulse Ox 07/02/21 04:03 97.7 F 67 16 108/67 98 07/01/21 23:01 97.5 F L 76 16 105/68 96 07/01/21 22:02 98.8 F 72 16 105/68 96 07/01/21 20:50 97.7 F 74 18 99/65 L 97 07/01/21 20:20 98.6 F 76 16 105/69 98 07/01/21 19:40 81 16 108/47 L 96 07/01/21 19:30 80 12 105/61 94 PG Care Time/CCT Total # of Minutes Spent Total Time Spent with Patient: Total time spent is greater than 50% in coordination of care (as documented) at patient's floor/unit and/or counseling patient: Coding Level of Care Code 60883 Subseq Hosp Care Lvl 3 Diagnoses Dry gangrene I96 Acute hyponatremia E87.1 Iron deficiency E61.1 Folate deficiency E53.8 Peripheral arterial disease I73.9 Clostridium difficile colitis A04.72 Diabetes type 1, controlled E10.9 Hypokalemia E87.6 Anemia D64.9 DVT prophylaxis Z29.9
[2021-07-02 07:38] LABS: BUN Creatinine Ratio 12.1 (10-20); Creatinine Clr Calc Pharmacy 78.5 ml/min; Est GFR (African American) 101.5 ml/min; Est GFR (Non-African American) 87.6 ml/min; Potassium 3.1 mmol/L (3.5-5.1)
[2021-07-02] MEDS ORDERED: INSULIN GLARGINE SOLOSTAR 100 UNITS/ML 3 ML PEN SC SCH (09:00)
[2021-07-02] MEDS ORDERED: MoRPHine SULFATE 4 MG/ML 1 ML CARP\\VIAL IV PRN (09:17)
[2021-07-02] MEDS ORDERED: MoRPHine SULFATE 2 MG/ML CARP IV PRN (09:17)
[2021-07-02] MEDS: ASPIRIN 81 MG ECTAB PO SCH (09:45)
[2021-07-02] MEDS: POTASSIUM CHLORIDE CRTAB 20 MEQ TABCR PO SCH ×2 (09:45→17:01)
[2021-07-02] MEDS: CALCITRIOL 0.25 MCG CAPSULE PO SCH (09:46)
[2021-07-02] MEDS: FOLIC ACID 1 MG TAB PO SCH (09:46)
[2021-07-02] MEDS: METOPROLOL TARTRATE 25 MG TAB PO SCH ×2 (09:46→20:51)
[2021-07-02] MEDS: FERROUS SULFATE 325 MG TAB PO SCH ×2 (09:46→20:51)
[2021-07-02] MEDS: CLOPIDOGREL BISULFATE 75 MG TAB PO SCH (09:46)
[2021-07-02] MEDS: INSULIN GLARGINE SOLOSTAR 100 UNITS/ML 3 ML PEN SC SCH ×2 (09:47→20:55)
[2021-07-02] MEDS: PANTOprazole 40 MG TAB PO SCH (09:47)
[2021-07-02] MEDS: RASPBERRY SYRUP 5 ML UDP PO SCH (10:13)
[2021-07-02] MEDS: VANCOMYCIN HCL 125 MG/2.5ML SOLN PO SCH (10:13)
--- NOTE | 2021-07-02 11:05 | Pharmacy Report ---
Pharmacy Glycemic Short Note 2 - Date of Service July 02, 2021 - Glycemic Short BSG Results (Last 24 hours): 07/01/21 07/01/21 07/01/21 12:15 13:15 14:41 Glucose 140 H POC Glucose 136 H 130 H 07/01/21 07/01/21 07/01/21 18:52 19:58 20:57 Glucose 152 H POC Glucose 137 H 155 H 07/02/21 07/02/21 07/02/21 00:22 04:05 06:46 Glucose 123 H POC Glucose 273 H 202 H 07/02/21 08:05 Glucose POC Glucose 107 H OUTPATIENT ANTIDIABETIC REGIMEN: * Novolog pump * Basal rate = 1.65 units/hr or ~40 units/day * CF: 30 mg/dL/unit * CR: 1 unit per 6 gm CHO consumed * HbA1c: 8.7% (07/01/21) ASSESSMENT: 07/02/21: * With the exception of overnight hyperglycemia last night (maybe from diet resuming post-op?), BSGs have been well-controlled. * Would like to transition back to patient's insulin pump tomorrow if able. Patient will need his family to bring him in new supplies/insulin. 07/01 * BSGs have been relatively well-controlled since stopping pt's insulin pump and transitioning to SQ basal/bolus insulin. * Pt is NPO and is going to the OR today for R BKA. * Will strive to maintain relatively tight glycemic control to promote wound healing and discourage infection. 06/30 * Mr Chowdhury is a 66 y/o M with a PMH of T1DM who presents with worsening foot infection. He is typically maintained on an insulin pump with above settings. * Spoke with the patient whenever he was admitted. His insulin pump was disconnected at 1800 (approximately 45 hours before I spoke to him). He does not have the supplies so would prefer basal bolus. * After reviewing previous admission, noticed that patient did well on regimen of Lantus 15 units in morning and 35 units in evening. There is no data whenever patient is NPO. Find it reasonable to start the above regimen with 35 units tonight then insulin tomorrow morning can be adjusted to how patient responds. * Novolog will be q4 after midnight to ensure adequate glucose control prior to proposed surgery. PLAN FOR INPATIENT GLYCEMIC CONTROL: * Basal insulin * Lantus 20 units SQ BID * Bolus insulin * NovoLog per scale ACHS or Q6hrs while NPO * Goal Range: Low 110 mg/dL - High 140 mg/dL * Correction Factor: 20 mg/dL/unit * Nutritional / Prandial insulin per carb ratio of 1 unit per 4 grams CHO consumed PLAN FOR DISCHARGE: * A1c: 8.7% * Less stringent A1C goals (such as less than 8%) may be appropriate for patients with multiple comorbidities, but 8.7% is still outside of this goal. * Hopefully, we will be able to resume patient's insulin pump during admission to observe BSG trends and identify potential adjustments to improve A1c to target. * More to follow as admission progresses.
[2021-07-02] MEDS: ACETAMINOPHEN 500 MG TAB PO SCH ×2 (15:07→20:52)
--- NOTE | 2021-07-02 17:39 | Progress Notes ---
DATE OF SERVICE: 07/02/2021 Doing well. Surgical findings discussed. Overall feels okay. He is afebrile. His vital signs are stable. There is no drain output. The drain is pulled. White count is 9, hemoglobin 9, hematocrit 27, platelets 469. Potassium is 3.1. The stump dressing is clean and dry. Will elevate. We will c onsult PT to get him up with a walker. He can weight bear as tolerated on the left leg. We will con demolition hammer operator changing the dressing over the weekend to inspect that. Continue IV antibiotics. He has compl eted his routine course of postoperative antibiotics. If he needs any further, then please continue. I spoke with Dr. Mares regarding DVT prophylaxis. If he is discharged, we will follow up with jane fraire in the next week or two. Job ID: [id number]
[2021-07-02] MEDS ORDERED: MAGNESIUM SULFATE / D5W 1 GM/100 ML BAG IV ONE (18:30)
[2021-07-02] MEDS: ATORVASTATIN 40 MG TAB PO SCH (20:52)
[2021-07-02] MEDS: HEPARIN SOD 5,000 UNIT/0.5 ML VIAL SQ SCH (20:53)
[2021-07-02] MEDS ORDERED: HEPARIN SOD 5,000 UNIT/0.5 ML VIAL SQ SCH (21:00)
[2021-07-03] MEDS: PIPERACILLIN/TAZOBACTAM 3.375 GM in DEXTROSE 5% 100 ML IV SCH (03:54)
[2021-07-03] MEDS: oxyCODONE HCL IR 5 MG TAB (IMMEDIATE RELEASE) PO PRN ×2 (04:03→17:51)
[2021-07-03] MEDS: LEVOTHYROXINE SODIUM 175 MCG TABLET PO SCH (06:12)
[2021-07-03 07:19] LABS: BUN Creatinine Ratio 13.3 (10-20); Calcium 8.3 mg/dl (8.5-10.1); Creatinine Clr Calc Pharmacy 96.3 ml/min; Est GFR (African American) 112.4 ml/min; Est GFR (Non-African American) 96.9 ml/min; Potassium 3.5 mmol/L (3.5-5.1)
[2021-07-03] MEDS: ACETAMINOPHEN 500 MG TAB PO SCH ×3 (09:22→20:40)
[2021-07-03] MEDS: POTASSIUM CHLORIDE CRTAB 20 MEQ TABCR PO SCH ×2 (09:22→17:12)
[2021-07-03] MEDS: CALCITRIOL 0.25 MCG CAPSULE PO SCH (09:23)
[2021-07-03] MEDS: ASPIRIN 81 MG ECTAB PO SCH (09:23)
[2021-07-03] MEDS: CLOPIDOGREL BISULFATE 75 MG TAB PO SCH (09:23)
[2021-07-03] MEDS: FOLIC ACID 1 MG TAB PO SCH (09:24)
[2021-07-03] MEDS: HEPARIN SOD 5,000 UNIT/0.5 ML VIAL SQ SCH ×2 (09:24→20:42)
[2021-07-03] MEDS: FERROUS SULFATE 325 MG TAB PO SCH ×2 (09:24→20:40)
[2021-07-03] MEDS: METOPROLOL TARTRATE 25 MG TAB PO SCH ×2 (09:25→20:38)
[2021-07-03] MEDS: VANCOMYCIN HCL 125 MG/2.5ML SOLN PO SCH (09:25)
[2021-07-03] MEDS: PANTOprazole 40 MG TAB PO SCH (09:25)
[2021-07-03] MEDS: RASPBERRY SYRUP 5 ML UDP PO SCH (09:25)
[2021-07-03] MEDS: INSULIN GLARGINE SOLOSTAR 100 UNITS/ML 3 ML PEN SC SCH (09:26)
[2021-07-03] MEDS: INSULIN ASPART 100 UNITS/ML 3 ML PEN SC SCH ×4 (09:26→21:39)
[2021-07-03] MEDS ORDERED: AMPICILLIN 2,000 MG in SODIUM CHLOR 0.9% AD-VAN 100 ML IV SCH (12:00)
[2021-07-03] MEDS: AMPICILLIN 2,000 MG in SODIUM CHLOR 0.9% AD-VAN 100 ML IV SCH ×3 (12:25→20:31)
--- NOTE | 2021-07-03 13:10 | XCELERA ---
[id number]
--- NOTE | 2021-07-03 14:25 | Hospitalist Progress Note ---
Date of Service July 03, 2021 Assessment & Plan (1) Dry gangrene: Plan: Patient appears to have above diagnosis. Patient will likely benefit from BKA of affected limb. Given elevated WBC, concern for possibility of sepsis, r Revascularization 01/19/21 initially successful but Graft occluded.progressed to BKA -C.diff appears to be controlled as patient no longer is having diarrhea. complete outpt vanco po taper VRE bacteremia, changed to ampicillin 2 gms q 4 hrs Prior to the procedure patient resulted 2 of 2 cultures with gram-positive cocci in chains, preliminary Enterococcus, Echo normal but has prosthetic aortic valve will have ID consult next week for further recommendation, repeat blood cultures 07/04 (2) Acute hyponatremia: Plan: will monitor sodium improved to 129 from 126 Will continue to hold thiazide diuretic and monitor. hypokalemia, increase oral agents, add magnesium iv (3) Iron deficiency: Plan: hemoglobin is at 12. will hold further iron studies at the moment. (4) Folate deficiency: Plan: layla resume folic acid (5) Peripheral arterial disease: Plan: as stated above. will hold plavix/asa contine atorvastatin (6) Clostridium difficile colitis: Plan: fnisnishing up a taper of vancomycin. No longer having diarrhea. Now on 7 days of vanco PO BID. Unsure which day he is on, his will call tomorrow with that information. Once he completes the 7 days, he will be on a daily dose for 7 days. (7) Diabetes type 1, controlled: Plan: continue insulin pump. consulted glycemic control (8) Hypokalemia: Plan: increase po dosing additional magnesium (9) Anemia: Plan: acute blood loss anemia in the post operative setting (10) DVT prophylaxis: Plan: heparin sc started, if stable also restart DAPT Admission and Anticipated Discharge Date Admission Date: June 30, 2021 Subjective Patient doing well postoperatively pain is plus minus controlled with 1 escalate his pain control medications. Potassium replete, did well with PT today 07/03 Review of Systems Review of Systems: Mild distress and fatigue no headache, no visual changes no speech or swallowing issues no chest pain, pressure or palpitations no shortness of breath, cough or wheezes no abdominal pain, nausea or vomiting, diarrhea or constipation no dysuria, hematuria or frequency Right lower extremity foul smell dressing on the foot gangrenous appearance no back pain, CVA tenderness or radicular pain no bruising, bleeding or rashes no focal signs of weakness or numbness or altered sensation no complaints of anxiety or depression.. Physical Exam Physical Exam: The patient appeared well nourished and normally developed. Vital signs as documented. Head exam is normocephalic atraumatic Neck is without JVD, thyromegaly, or carotid bruits. Lungs are clear to auscultation, no focal loss of breath sounds Cardiac exam, Rhythm is regular.. No murmurs, rubs or gallops. Abdominal exam reveals normal bowel sounds, soft non tender, no masses Right lower extremity previous graft removal site is well-healed his distal leg is changed chronic venous stasis and gangrene is present on his heel Neurologic exam is alert and oriented, distal neuropathy is present Skin is with sniffing infectious change distally to his right leg Psychologically is without concerns for anxiety or depression Results & Data Results & Data ([facility]) Vital Signs (Past 12 Hours) Vital Signs Temp Pulse Pulse Resp BP Pulse Ox 07/03/21 07:28 98.6 F 70 16 122/68 96 07/03/21 06:13 97.9 F 71 16 116/75 96 07/03/21 03:43 99.0 F 74 18 102/63 95 PG Care Time/CCT Total # of Minutes Spent Total Time Spent with Patient: Total time spent is greater than 50% in coordination of care (as documented) at patient's floor/unit and/or counseling patient: Coding Level of Care Code 42467 Subseq Hosp Care Lvl 3 Diagnoses Dry gangrene I96 Acute hyponatremia E87.1 Iron deficiency E61.1 Folate deficiency E53.8 Peripheral arterial disease I73.9 Clostridium difficile colitis A04.72 Diabetes type 1, controlled E10.9 Hypokalemia E87.6 Anemia D64.9 DVT prophylaxis Z29.9
--- NOTE | 2021-07-03 16:32 | Orthopedic Progress Note ---
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 Soto Continue splint and dressings/ reapplied today Continue antibiotics as per primary service Ice and elevate right lower extremity to relieve pain/swelling Non weight bearing right lower extremity PT as ordered, - allowed out of bed for transfers. regular diet as ordered Will continue to follow most likely will benefit from inpatient rehab. Dr. Bergeron present for today's visit and will discuss findings with Dr. Soto. All questions answered, patient understands and agrees with the plan. Admission and Anticipated Discharge Date Admission Date: June 30, 2021 Subjective Patient states that he's feeling good, some mild cramping in right leg musculature. No fevers, chills. Right leg elevated on pillow. Has been out of bed with PT today, states that he did well with transfers to a chair. Physical Exam Musculoskeletal: Exam of right leg: Splint and dressings removed right leg. Incision clean, dry and intact. Sutures and sharri retained, skin edges well approximated. Hemovac site with no drainage. Skin pink, no hematoma or seroma, no active drainage. right leg incision and stump with mild tenderness with palpation. Able to independently lift leg off of bed. Results & Data ([facility]) Vital Signs (Past 12 Hours) Vital Signs Temp Pulse Pulse Resp BP Pulse Ox 07/03/21 15:50 36.7 C 87 18 111/66 98 07/03/21 07:28 37.0 C 70 16 122/68 96 07/03/21 06:13 36.6 C 71 16 116/75 96 Laboratory Results 07/03/21 07/03/21 07/03/21 Range/Units 12:01 08:18 06:36 Sodium 132 L (136-145) mmol/L Potassium 3.5 (3.5-5.1) mmol/L Chloride 95 L (98-107) mmol/L Carbon Dioxide 34 H (21-32) mmol/L Anion Gap 3.0 (3-11) BUN 10 (7-18) mg/dl Creatinine 0.75 (0.6-1.4) mg/dl Est Cr Clr Drug Dosing 96.3 ml/min Est GFR ( Amer) 112.4 ml/min Est GFR (Non-Af Amer) 96.9 ml/min BUN/Creatinine Ratio 13.3 (10-20) Glucose 86 (70-99) mg/dl POC Glucose 148 H 92 (70-99) mg/dl Calcium 8.3 L (8.5-10.1) mg/dl Magnesium 2.0 (1.8-2.4) mg/dl 07/02/21 07/02/21 Range/Units 20:43 17:19 Sodium (136-145) mmol/L Potassium (3.5-5.1) mmol/L Chloride (98-107) mmol/L Carbon Dioxide (21-32) mmol/L Anion Gap (3-11) BUN (7-18) mg/dl Creatinine (0.6-1.4) mg/dl Est Cr Clr Drug Dosing ml/min Est GFR ( Amer) ml/min Est GFR (Non-Af Amer) ml/min BUN/Creatinine Ratio (10-20) Glucose (70-99) mg/dl POC Glucose 124 H 80 (70-99) mg/dl Calcium (8.5-10.1) mg/dl Magnesium (1.8-2.4) mg/dl
[2021-07-03] MEDS: CARBOHYDRATES FOR HYPOGLYCEMIA PO PRN (16:49)
[2021-07-03] MEDS: ATORVASTATIN 40 MG TAB PO SCH (20:40)
[2021-07-03] MEDS ORDERED: INSULIN GLARGINE SOLOSTAR 100 UNITS/ML 3 ML PEN SC SCH (21:45)
[2021-07-04] MEDS: AMPICILLIN 2,000 MG in SODIUM CHLOR 0.9% AD-VAN 100 ML IV SCH ×7 (00:05→23:56)
[2021-07-04] MEDS: oxyCODONE HCL IR 5 MG TAB (IMMEDIATE RELEASE) PO PRN (01:57)
[2021-07-04] MEDS: LEVOTHYROXINE SODIUM 175 MCG TABLET PO SCH (06:05)
[2021-07-04 07:50] LABS: BUN Creatinine Ratio 15.5 (10-20); Calcium 8.5 mg/dl (8.5-10.1); Creatinine Clr Calc Pharmacy 104.6 ml/min; Est GFR (African American) 116.3 ml/min; Est GFR (Non-African American) 100.3 ml/min; Magnesium 1.8 mg/dl (1.8-2.4); Potassium 4.2 mmol/L (3.5-5.1)
[2021-07-04] MEDS: CALCITRIOL 0.25 MCG CAPSULE PO SCH (08:55)
[2021-07-04] MEDS: POTASSIUM CHLORIDE CRTAB 20 MEQ TABCR PO SCH ×2 (08:55→16:16)
[2021-07-04] MEDS: ACETAMINOPHEN 500 MG TAB PO SCH ×3 (08:55→20:14)
[2021-07-04] MEDS: ASPIRIN 81 MG ECTAB PO SCH (08:55)
[2021-07-04] MEDS: FERROUS SULFATE 325 MG TAB PO SCH ×2 (08:56→20:14)
[2021-07-04] MEDS: HEPARIN SOD 5,000 UNIT/0.5 ML VIAL SQ SCH ×2 (08:56→20:15)
[2021-07-04] MEDS: FOLIC ACID 1 MG TAB PO SCH (08:56)
[2021-07-04] MEDS: CLOPIDOGREL BISULFATE 75 MG TAB PO SCH (08:56)
[2021-07-04] MEDS: RASPBERRY SYRUP 5 ML UDP PO SCH (08:57)
[2021-07-04] MEDS: PANTOprazole 40 MG TAB PO SCH (08:57)
[2021-07-04] MEDS: METOPROLOL TARTRATE 25 MG TAB PO SCH ×2 (08:57→21:13)
[2021-07-04] MEDS: VANCOMYCIN HCL 125 MG/2.5ML SOLN PO SCH (08:58)
[2021-07-04] MEDS: INSULIN ASPART 100 UNITS/ML 3 ML PEN SC SCH ×4 (08:59→21:15)
[2021-07-04] MEDS ORDERED: INSULIN GLARGINE SOLOSTAR 100 UNITS/ML 3 ML PEN SC SCH (09:00)
--- NOTE | 2021-07-04 15:39 | Pharmacy Report ---
Pharmacy Glycemic Short Note 2 - Date of Service July 04, 2021 - Glycemic Short BSG Results (Last 24 hours): 07/03/21 07/03/21 07/03/21 16:48 17:08 20:28 Glucose POC Glucose 59 L* 79 73 07/03/21 07/04/21 07/04/21 22:12 06:35 08:15 Glucose 189 H POC Glucose 96 194 H 07/04/21 12:17 Glucose POC Glucose 239 H OUTPATIENT ANTIDIABETIC REGIMEN: * Novolog pump * Basal rate = 1.65 units/hr or ~40 units/day * CF: 30 mg/dL/unit * CR: 1 unit per 6 gm CHO consumed * HbA1c: 8.7% (07/01/21) ASSESSMENT: 07/04: * Pt had a hypoglycemic episode (BSG = 59 mg/dl) yesterday with the dinner BSG check. Lantus HS dose was reduced at this time. * However, fasting BSG today was elevated at 194 mg/dl. So, Lantus was increased back again. * Since dinner and HS BSGs were lower than expected yesterday, Novolog carb ratio loosened this AM. Pre-lunch BSG elevated but expect it to trend downwards this evening. 07/02/21: * With the exception of overnight hyperglycemia last night (maybe from diet resuming post-op?), BSGs have been well-controlled. * Would like to transition back to patient's insulin pump tomorrow if able. Patient will need his family to bring him in new supplies/insulin. 07/01 * BSGs have been relatively well-controlled since stopping pt's insulin pump and transitioning to SQ basal/bolus insulin. * Pt is NPO and is going to the OR today for R BKA. * Will strive to maintain relatively tight glycemic control to promote wound healing and discourage infection. 06/30 * Mr Chowdhury is a 66 y/o M with a PMH of T1DM who presents with worsening foot infection. He is typically maintained on an insulin pump with above settings. * Spoke with the patient whenever he was admitted. His insulin pump was disconnected at 1800 (approximately 45 hours before I spoke to him). He does not have the supplies so would prefer basal bolus. * After reviewing previous admission, noticed that patient did well on regimen of Lantus 15 units in morning and 35 units in evening. There is no data whenever patient is NPO. Find it reasonable to start the above regimen with 35 units tonight then insulin tomorrow morning can be adjusted to how patient responds. * Novolog will be q4 after midnight to ensure adequate glucose control prior to proposed surgery. PLAN FOR INPATIENT GLYCEMIC CONTROL: * Basal insulin * Lantus 20 units SQ BID * Bolus insulin: loosened CR * NovoLog per scale ACHS or Q6hrs while NPO * Goal Range: Low 110 mg/dL - High 140 mg/dL * Correction Factor: 20 mg/dL/unit * Nutritional / Prandial insulin per carb ratio of 1 unit per 5 grams CHO consumed PLAN FOR DISCHARGE: * A1c: 8.7% * Less stringent A1C goals (such as less than 8%) may be appropriate for patients with multiple comorbidities, but 8.7% is still outside of this goal. * Hopefully, we will be able to resume patient's insulin pump during admission to observe BSG trends and identify potential adjustments to improve A1c to target. * More to follow as admission progresses.
--- NOTE | 2021-07-04 18:39 | Hospitalist Progress Note ---
Date of Service July 04, 2021 Assessment & Plan (1) Dry gangrene: Plan: now s/p BKA of affected limb. Given elevated WBC, concern for possibility of sepsis, VRE seen on pre operative blood cultures, repeat cultures 07/04 Revascularization 01/19/21 initially successful but Graft occluded.progressed to BKA -C.diff appears to be controlled as patient no longer is having diarrhea. complete outpt vanco po taper VRE bacteremia, changed to ampicillin 2 gms q 4 hrs Prior to the procedure patient resulted 2 of 2 cultures with gram-positive cocci in chains, VRE, Echo normal but has prosthetic aortic valve comments apprears unremarkable repeat blood cultures 07/04, likely to need line and antibiotic course,will be at rehab to make things easier to arrange (2) Acute hyponatremia: Plan: will monitor sodium improved Will continue to hold thiazide diuretic and monitor. hypokalemia, increased oral agents, (3) Iron deficiency: Plan: pre op hemoglobin is at 12. will hold further iron studies at the moment. acute anemia in the post operative setting hgb 8.8 (4) Folate deficiency: Plan: layla resume folic acid (5) Peripheral arterial disease: Plan: as stated above. resume plavix/asa continue atorvastatin (6) Clostridium difficile colitis: Plan: fnisnishing up a taper of vancomycin. No longer having diarrhea. Now on 7 days of vanco PO BID. Unsure which day he is on, his will call tomorrow with that information. Once he completes the 7 days, he will be on a daily dose for 7 days. (7) Diabetes type 1, controlled: Plan: continue insulin pump. consulted glycemic control (8) Hypokalemia: Plan: increase po dosing additional magnesium (9) Anemia: Plan: acute blood loss anemia in the post operative setting (10) DVT prophylaxis: Plan: heparin sc started, if stable also restart DAPT Admission and Anticipated Discharge Date Admission Date: June 30, 2021 Subjective Patient states that he's feeling good, Has been out of bed with PT today, states that he did well with transfers to a chair. looking forward to rehab understands about VRE bacteremia, repeat blood cultures 07/04, negative TTE Review of Systems Review of Systems: Mild distress and fatigue no headache, no visual changes no speech or swallowing issues no chest pain, pressure or palpitations no shortness of breath, cough or wheezes no abdominal pain, nausea or vomiting, diarrhea or constipation no dysuria, hematuria or frequency Right lower extremity dressing in place no back pain, CVA tenderness or radicular pain no bruising, bleeding or rashes no focal signs of weakness or numbness or altered sensation no complaints of anxiety or depression.. Physical Exam Physical Exam: The patient appeared well nourished and normally developed. Vital signs as documented. Head exam is normocephalic atraumatic Neck is without JVD, thyromegaly, or carotid bruits. Lungs are clear to auscultation, no focal loss of breath sounds Cardiac exam, Rhythm is regular.. No murmurs, rubs or gallops. Abdominal exam reveals normal bowel sounds, soft non tender, no masses Right lower extremity dressing in place, drains, pain is well controlled Neurologic exam is alert and oriented, distal neuropathy is present Psychologically is without concerns for anxiety or depression Results & Data Results & Data ([facility]) Vital Signs (Past 12 Hours) Vital Signs Temp Pulse Resp BP Pulse Ox 07/04/21 16:13 98.1 F 68 18 103/66 97 PG Care Time/CCT Total # of Minutes Spent Total Time Spent with Patient: Total time spent is greater than 50% in coordination of care (as documented) at patient's floor/unit and/or counseling patient: Coding Level of Care Code 75915 Subseq Hosp Care Lvl 2 Diagnoses Dry gangrene I96 Acute hyponatremia E87.1 Iron deficiency E61.1 Folate deficiency E53.8 Peripheral arterial disease I73.9 Clostridium difficile colitis A04.72 Diabetes type 1, controlled E10.9 Hypokalemia E87.6 Anemia D64.9 DVT prophylaxis Z29.9
[2021-07-04] MEDS: ATORVASTATIN 40 MG TAB PO SCH (20:14)
[2021-07-04] MEDS: INSULIN GLARGINE SOLOSTAR 100 UNITS/ML 3 ML PEN SC SCH (21:14)
[2021-07-05] MEDS: oxyCODONE HCL IR 5 MG TAB (IMMEDIATE RELEASE) PO PRN ×2 (00:34→16:49)
[2021-07-05] MEDS: AMPICILLIN 2,000 MG in SODIUM CHLOR 0.9% AD-VAN 100 ML IV SCH ×5 (04:04→20:13)
[2021-07-05] MEDS: LEVOTHYROXINE SODIUM 175 MCG TABLET PO SCH (05:49)
[2021-07-05 05:56] LABS: Hematocrit (blood only) 25.1 % (42-52); Hemoglobin 7.9 g/dL (14.0-18.0); Mean Corpuscular Hgb Conc 31.5 g/dL (32-36); Mean Corpuscular Volume 79.4 fL (80-100); Mean Platelet Volume 8.5 fL (7.4-10.4); Platelet Count 492 K/uL (130-400); RDW Coefficient of Variation 15.9 % (11.5-14.5); RDW Standard Deviation 46.2 fL (36.4-46.3); Red Blood Count 3.16 M/uL (4.7-6.1); White Blood Count 11.72 K/uL (4.8-10.8)
[2021-07-05 06:22] LABS: BUN Creatinine Ratio 17.4 (10-20); Calcium 8.5 mg/dl (8.5-10.1); Creatinine Clr Calc Pharmacy 100.3 ml/min; Est GFR (African American) 114.3 ml/min; Est GFR (Non-African American) 98.6 ml/min; Magnesium 1.8 mg/dl (1.8-2.4); Potassium 4.3 mmol/L (3.5-5.1)
[2021-07-05] MEDS: INSULIN ASPART 100 UNITS/ML 3 ML PEN SC SCH ×4 (08:38→21:55)
[2021-07-05] MEDS: HEPARIN SOD 5,000 UNIT/0.5 ML VIAL SQ SCH ×2 (08:39→20:20)
[2021-07-05] MEDS: FERROUS SULFATE 325 MG TAB PO SCH ×2 (08:39→20:19)
[2021-07-05] MEDS: ACETAMINOPHEN 500 MG TAB PO SCH ×3 (08:39→20:19)
[2021-07-05] MEDS: RASPBERRY SYRUP 5 ML UDP PO SCH (08:41)
[2021-07-05] MEDS: INSULIN GLARGINE SOLOSTAR 100 UNITS/ML 3 ML PEN SC SCH ×2 (08:42→22:06)
[2021-07-05] MEDS: CALCITRIOL 0.25 MCG CAPSULE PO SCH (08:46)
[2021-07-05] MEDS: ASPIRIN 81 MG ECTAB PO SCH (08:46)
[2021-07-05] MEDS: CLOPIDOGREL BISULFATE 75 MG TAB PO SCH (08:46)
[2021-07-05] MEDS: POTASSIUM CHLORIDE CRTAB 20 MEQ TABCR PO SCH ×2 (08:46→16:49)
[2021-07-05] MEDS: FOLIC ACID 1 MG TAB PO SCH (08:46)
[2021-07-05] MEDS: PANTOprazole 40 MG TAB PO SCH (08:46)
[2021-07-05] MEDS: METOPROLOL TARTRATE 25 MG TAB PO SCH ×2 (08:47→20:19)
[2021-07-05] MEDS: VANCOMYCIN HCL 125 MG/2.5ML SOLN PO SCH (09:44)
--- NOTE | 2021-07-05 14:05 | Hospitalist Progress Note ---
Date of Service July 05, 2021 Assessment & Plan (1) Dry gangrene: Plan: - Also with Bacteremia - Enterococcus faecalis VRE - S/P BKA on 07/01 -- Revascularization January 2021 - initially successful but graft occluded and progressed to BKA - Repeat BCx on 07/04 with NGTD -- Echo normal but has prosthetic aortic valve but appears unremarkable - Continue Ampicillin -- May need peripheral line and IV Abx course - Consider ID consultation (2) Clostridium difficile colitis: Plan: - Intermittent loose stool - no abdominal pains/fever - Will F/U with family to determine how much longer on taper - currently doing daily dosing of po Vanc (3) Acute hyponatremia: Plan: - STABLE - Continue to hold Thiazide diuretic (4) Folate deficiency: Plan: - Continue supplementation (5) Peripheral arterial disease: Plan: - Continue ASA/Plavix - Atorvastatin 80 mg HS (6) Diabetes type 1, controlled: Plan: - Continue insulin pump; appreciate glycemic control (7) Anemia: Plan: - Acute blood loss anemia in the post operative setting - Hgb 7.9 with vitals stable - will recheck in AM (8) DVT prophylaxis: Plan: - Heparin Plan: - PT/OT evaluations - Awaiting rehab determination Admission and Anticipated Discharge Date Admission Date: June 30, 2021 Subjective Reports his pain is pretty well controlled today. Having some mild loose stool but states does not feel like when he first got C. diff. Tolerating diet. Verbalizes no new complaints. Is interested in rehab. Review of Systems Review of Systems: REVIEW OF SYSTEMS General/Constitutional: Denies fever/chills Cardiovascular: Denies chest pain, palpitations, edema Respiratory: Denies cough, sputum, SOB, wheezing, orthopnea GI: + loose stool; Denies nausea, vomiting, abdominal pain, constipation, melena/hematochezia : Denies dysuria Musculoskeletal: + phantom stump pain (controlled) Neurologic: Denies dizziness/lightheadedness Skin: Denies rash Physical Exam Physical Exam: PHYSICAL EXAM General Appearance: WDWN in NAD who is A&O x 3 HEENT: Head is normocephalic/atraumatic; Hearing grossly intact; Mucous membranes moist Neck: Supple; Trachea midline; Neg JVD Heart: RRR with no M/G/R Lungs: CTA in all lung fuller bilaterally; Respirations unlabored; Neg accessory muscle use Abdomen: Soft, non-tender, non-distended; Positive BS x 4 quadrants Extremities: Neg cyanosis or edema; R stump with dressing in place - C/D/I Neurological: Speech clear; Gross motor/sensory function intact; Neg focal neurologic deficits Psychiatric: Appropriate mood/affect Skin: Normal Color; Warm/Dry Results & Data Results & Data ([facility]) Vital Signs (Past 12 Hours) Vital Signs Temp Pulse Resp BP Pulse Ox 07/05/21 07:33 36.8 C 71 18 144/79 H 98 PG Care Time/CCT Total # of Minutes Spent Total Time Spent with Patient: Total time spent is greater than 50% in coordination of care (as documented) at patient's floor/unit and/or counseling patient: Coding Level of Care Code 50597 Subseq Hosp Care Lvl 3 Diagnoses Dry gangrene I96 Acute hyponatremia E87.1 Folate deficiency E53.8 Peripheral arterial disease I73.9 Clostridium difficile colitis A04.72 Diabetes type 1, controlled E10.9 Anemia D64.9 DVT prophylaxis Z29.9
--- NOTE | 2021-07-05 14:53 | Orthopedic Progress Note ---
Date of Service July 05, 2021 Assessment & Plan (1) Below-knee amputation of right lower extremity: Plan: POD 4 - BKA right lower extremity with Dr. Soto Continue splint and dressings Continue antibiotics as per primary service Ice and elevate right lower extremity to relieve pain/swelling Non weight bearing right lower extremity PT as ordered, - allowed out of bed for transfers. regular diet as ordered Will continue to follow On ASA and Plavix. most likely will benefit from inpatient rehab. Will discuss findings with Dr. Soto. Will most likely plan on changing dressings again tomorrow and then okay from ortho standpoint for discharge. All questions answered, patient understands and agrees with the plan. Admission and Anticipated Discharge Date Admission Date: June 30, 2021 Subjective Doing well today. States that he's been out of bed with therapy. Right leg elevated, minimal pain right lower extremity. Splint comfortable. Physical Exam Musculoskeletal: Exam of right lower extremity: Splint and dressings clean, dry and intact right lower extremity. Right leg elevated on a pillow. Able to lift leg indenpendently. Results & Data ([facility]) Vital Signs (Past 12 Hours) Vital Signs Temp Pulse Resp BP Pulse Ox 07/05/21 07:33 36.8 C 71 18 144/79 H 98 Laboratory Results 07/05/21 07/05/21 07/05/21 Range/Units 12:22 08:15 05:40 WBC 11.72 H (4.8-10.8) K/uL RBC 3.16 L (4.7-6.1) M/uL Hgb 7.9 L (14.0-18.0) g/dL Hct 25.1 L (42-52) % MCV 79.4 L (80-100) fL MCH 25.0 (25-34) pg MCHC 31.5 L (32-36) g/dL RDW Std Deviation 46.2 (36.4-46.3) fL RDW Coeff of Chan 15.9 H (11.5-14.5) % Plt Count 492 H (130-400) K/uL MPV 8.5 (7.4-10.4) fL Sodium (136-145) mmol/L Potassium (3.5-5.1) mmol/L Chloride (98-107) mmol/L Carbon Dioxide (21-32) mmol/L Anion Gap (3-11) BUN (7-18) mg/dl Creatinine (0.6-1.4) mg/dl Est Cr Clr Drug Dosing ml/min Est GFR ( Amer) ml/min Est GFR (Non-Af Amer) ml/min BUN/Creatinine Ratio (10-20) Glucose (70-99) mg/dl POC Glucose 195 H 93 (70-99) mg/dl Calcium (8.5-10.1) mg/dl Magnesium (1.8-2.4) mg/dl 07/05/21 07/04/21 07/04/21 Range/Units 05:40 20:39 16:56 WBC (4.8-10.8) K/uL RBC (4.7-6.1) M/uL Hgb (14.0-18.0) g/dL Hct (42-52) % MCV (80-100) fL MCH (25-34) pg MCHC (32-36) g/dL RDW Std Deviation (36.4-46.3) fL RDW Coeff of Chan (11.5-14.5) % Plt Count (130-400) K/uL MPV (7.4-10.4) fL Sodium 135 L (136-145) mmol/L Potassium 4.3 (3.5-5.1) mmol/L Chloride 101 (98-107) mmol/L Carbon Dioxide 32 (21-32) mmol/L Anion Gap 2.0 L (3-11) BUN 13 (7-18) mg/dl Creatinine 0.72 (0.6-1.4) mg/dl Est Cr Clr Drug Dosing 100.3 ml/min Est GFR ( Amer) 114.3 ml/min Est GFR (Non-Af Amer) 98.6 ml/min BUN/Creatinine Ratio 17.4 (10-20) Glucose 98 (70-99) mg/dl POC Glucose 119 H 118 H (70-99) mg/dl Calcium 8.5 (8.5-10.1) mg/dl Magnesium 1.8 (1.8-2.4) mg/dl
[2021-07-05] MEDS: ATORVASTATIN 40 MG TAB PO SCH (20:19)
[2021-07-06] MEDS: AMPICILLIN 2,000 MG in SODIUM CHLOR 0.9% AD-VAN 100 ML IV SCH ×6 (00:04→20:40)
[2021-07-06] MEDS: oxyCODONE HCL IR 5 MG TAB (IMMEDIATE RELEASE) PO PRN ×3 (03:35→22:37)
[2021-07-06] MEDS: LEVOTHYROXINE SODIUM 175 MCG TABLET PO SCH (05:59)
[2021-07-06 07:15] LABS: BUN Creatinine Ratio 16.5 (10-20); Calcium 9.1 mg/dl (8.5-10.1); Creatinine Clr Calc Pharmacy 98.9 ml/min; Est GFR (African American) 113.6 ml/min; Potassium 4.6 mmol/L (3.5-5.1)
[2021-07-06] MEDS: ASPIRIN 81 MG ECTAB PO SCH (08:23)
[2021-07-06] MEDS: RASPBERRY SYRUP 5 ML UDP PO SCH (08:23)
[2021-07-06] MEDS: CLOPIDOGREL BISULFATE 75 MG TAB PO SCH (08:24)
[2021-07-06] MEDS: FERROUS SULFATE 325 MG TAB PO SCH ×2 (08:24→20:42)
[2021-07-06] MEDS: HEPARIN SOD 5,000 UNIT/0.5 ML VIAL SQ SCH ×2 (08:24→20:43)
[2021-07-06] MEDS: ACETAMINOPHEN 500 MG TAB PO SCH ×3 (08:25→20:43)
[2021-07-06] MEDS: METOPROLOL TARTRATE 25 MG TAB PO SCH ×2 (08:26→20:42)
[2021-07-06] MEDS: POTASSIUM CHLORIDE CRTAB 20 MEQ TABCR PO SCH ×2 (08:26→17:11)
[2021-07-06] MEDS: VANCOMYCIN HCL 125 MG/2.5ML SOLN PO SCH (08:27)
[2021-07-06] MEDS: CALCITRIOL 0.25 MCG CAPSULE PO SCH (08:27)
[2021-07-06] MEDS: PANTOprazole 40 MG TAB PO SCH (08:27)
[2021-07-06] MEDS: FOLIC ACID 1 MG TAB PO SCH (08:27)
[2021-07-06] MEDS: INSULIN GLARGINE SOLOSTAR 100 UNITS/ML 3 ML PEN SC SCH ×2 (08:31→21:19)
[2021-07-06] MEDS: INSULIN ASPART 100 UNITS/ML 3 ML PEN SC SCH ×4 (08:32→21:47)
--- NOTE | 2021-07-06 09:52 | Hospitalist Progress Note ---
Date of Service July 06, 2021 Assessment & Plan (1) Dry gangrene: Plan: - Also with Bacteremia - Enterococcus faecalis VRE - S/P BKA on 07/01 -- Revascularization January 2021 - initially successful but graft occluded and progressed to BKA - Repeat BCx on 07/04 with NGTD -- Echo normal but has prosthetic aortic valve but appears unremarkable - Continue Ampicillin -- May need peripheral line and IV Abx course - Placed ID consultation to assist with duration and any further adjustments - Orthopedics following - anticipate dressing change today (2) Clostridium difficile colitis: Plan: - Intermittent loose stool - no abdominal pains/fever - Continue Vancomycin 125 mg daily to complete taper (3) Acute hyponatremia: Plan: - STABLE - Continue to hold Thiazide diuretic (4) Folate deficiency: Plan: - Continue supplementation (5) Peripheral arterial disease: Plan: - Continue ASA/Plavix - Atorvastatin 80 mg HS (6) Diabetes type 1, controlled: Plan: - Continue insulin pump; appreciate glycemic control - Did have some lows this AM but improved (7) Anemia: Plan: - Acute blood loss anemia in the post operative setting - Hgb 7.9 with vitals stable - awaiting recheck (8) DVT prophylaxis: Plan: - Heparin Plan: - PT/OT evaluations - Awaiting rehab determination Admission and Anticipated Discharge Date Admission Date: June 30, 2021 Subjective Reports feeling well today. Still having occasional phantom pains but states pretty well controlled. He is still having some loose stool but not frequently and no pain like when he first had C. diff. He is tolerating a diet and verbalizes no new complaints Review of Systems Review of Systems: REVIEW OF SYSTEMS General/Constitutional: Denies fever/chills Cardiovascular: Denies chest pain, palpitations, edema Respiratory: Denies cough, SOB, wheezing, orthopnea GI: + loose stool; Denies nausea, vomiting, abdominal pain, constipation, melena/hematochezia : Denies dysuria Musculoskeletal: + phantom stump pain (controlled) Neurologic: Denies dizziness/lightheadedness Skin: Denies rash Physical Exam Physical Exam: PHYSICAL EXAM General Appearance: WDWN in NAD who is A&O x 3 HEENT: Head is normocephalic/atraumatic; Hearing grossly intact; Mucous membrane s moist Neck: Supple; Trachea midline; Neg JVD Heart: RRR with murmur Lungs: CTA in all lung fuller bilaterally; Respirations unlabored; Neg accessory muscle use Abdomen: Soft, non-tender, non-distended; Positive BS x 4 quadrants Extremities: Neg cyanosis or edema; R stump with dressing in place - C/D/I Neurological: Speech clear; Gross motor/sensory function intact; Neg focal neurologic deficits Psychiatric: Appropriate mood/affect Skin: Normal Color; Warm/Dry Results & Data Results & Data ([facility]) Vital Signs (Past 12 Hours) Vital Signs Temp Pulse Resp BP Pulse Ox 07/06/21 07:24 37.2 C 70 16 146/70 H 97 07/06/21 00:00 36.9 C 77 16 114/82 96 PG Care Time/CCT Total # of Minutes Spent Total Time Spent with Patient: Total time spent is greater than 50% in c oordination of care (as documented) at patient's floor/unit and/or counseling patient: Coding Level of Care Code 13553 Subseq Hosp Care Lvl 2 Diagnoses Dry gangrene I96 Clostridium difficile colitis A04.72 Acute hyponatremia E87.1 Folate deficiency E53.8 Peripheral arterial disease I73.9 Diabetes type 1, controlled E10.9 Anemia D64.9 DVT prophylaxis Z29.9
[2021-07-06 12:23] LABS: Hematocrit (blood only) 25.3 % (42-52); Hemoglobin 7.8 g/dL (14.0-18.0); Mean Corpuscular Hemoglobin 24.8 pg (25-34); Mean Corpuscular Hgb Conc 30.8 g/dL (32-36); Mean Corpuscular Volume 80.3 fL (80-100); Mean Platelet Volume 8.1 fL (7.4-10.4); Platelet Count 510 K/uL (130-400); RDW Coefficient of Variation 16.2 % (11.5-14.5); RDW Standard Deviation 47.3 fL (36.4-46.3); Red Blood Count 3.15 M/uL (4.7-6.1); White Blood Count 10.43 K/uL (4.8-10.8)
--- NOTE | 2021-07-06 12:52 | Pharmacy Report ---
Pharmacy Glycemic Short Note 2 - Date of Service July 06, 2021 - Glycemic Short BSG Results (Last 24 hours): 07/05/21 07/05/21 07/05/21 17:19 20:53 21:18 Glucose POC Glucose 78 62 L* 86 07/05/21 07/06/21 07/06/21 22:05 06:21 08:23 Glucose 225 H POC Glucose 102 H 233 H 07/06/21 12:27 Glucose POC Glucose 186 H OUTPATIENT ANTIDIABETIC REGIMEN: * Novolog pump * Basal rate = 1.65 units/hr or ~40 units/day * CF: 30 mg/dL/unit * CR: 1 unit per 6 gm CHO consumed * HbA1c: 8.7% (07/01/21) ASSESSMENT: 07/06/21 * Patient's BSGs yesterday were 08-202-77-62 mg/dL. * Patient received 77 units of insulin (40 units of basal and 37 units of bolus). * Fasting BSG today was 233 mg/dL. * Continue Lantus dosing. BSG elevated today probably secondary to hypoglycemic episode yesterday evening. * Novolog loosened yesterday evening. Will continue. Of note, during previous hospitalizations, patient required much tighter Novolog coverage so this is unexpected. 07/04: * Pt had a hypoglycemic episode (BSG = 59 mg/dl) yesterday with the dinner BSG check. Lantus HS dose was reduced at this time. * However, fasting BSG today was elevated at 194 mg/dl. So, Lantus was increased back again. * Since dinner and HS BSGs were lower than expected yesterday, Novolog carb ratio loosened this AM. Pre-lunch BSG elevated but expect it to trend downwards this evening. 07/02/21: * With the exception of overnight hyperglycemia last night (maybe from diet resuming post-op?), BSGs have been well-controlled. * Would like to transition back to patient's insulin pump tomorrow if able. Patient will need his family to bring him in new supplies/insulin. 07/01 * BSGs have been relatively well-controlled since stopping pt's insulin pump and transitioning to SQ basal/bolus insulin. * Pt is NPO and is going to the OR today for R BKA. * Will strive to maintain relatively tight glycemic control to promote wound healing and discourage infection. 06/30 * Mr Chowdhury is a 66 y/o M with a PMH of T1DM who presents with worsening foot infection. He is typically maintained on an insulin pump with above settings. * Spoke with the patient whenever he was admitted. His insulin pump was disconnected at 1800 (approximately 45 hours before I spoke to him). He does not have the supplies so would prefer basal bolus. * After reviewing previous admission, noticed that patient did well on regimen of Lantus 15 units in morning and 35 units in evening. There is no data whenever patient is NPO. Find it reasonable to start the above regimen with 35 units tonight then insulin tomorrow morning can be adjusted to how patient responds. * Novolog will be q4 after midnight to ensure adequate glucose control prior to proposed surgery. PLAN FOR INPATIENT GLYCEMIC CONTROL: * Basal insulin * Lantus 20 units SQ BID * Bolus insulin: loosened CR * NovoLog per scale ACHS or Q6hrs while NPO * Goal Range: Low 110 mg/dL - High 140 mg/dL * Correction Factor: 25 mg/dL/unit * Nutritional / Prandial insulin per carb ratio of 1 unit per 6 grams CHO consumed PLAN FOR DISCHARGE: * A1c: 8.7% * Less stringent A1C goals (such as less than 8%) may be appropriate for patients with multiple comorbidities, but 8.7% is still outside of this goal. * Hopefully, we will be able to resume patient's insulin pump during admission to observe BSG trends and identify potential adjustments to improve A1c to target. * More to follow as admission progresses.
--- NOTE | 2021-07-06 14:51 | Orthopedic Progress Note ---
Date of Service July 06, 2021 Assessment & Plan (1) Below-knee amputation of right lower extremity: Plan: POD 5 - BKA right lower extremity with Dr. Soto Continue splint and dressings Continue antibiotics as per primary service Ice and elevate right lower extremity to relieve pain/swelling Non weight bearing right lower extremity PT as ordered, - allowed out of bed for transfers. regular diet as ordered On ASA and Plavix. Would benefit from inpatient rehab - authorization pending. Dr. Soto present for today's visit. Dressings replaced and new splint applied today. Will follow up as scheduled next week as an outpatient. Okay from ortho standpoint when medically stable and authorization obtained. Admission and Anticipated Discharge Date Admission Date: June 30, 2021 Subjective Patient resting in bed, no complaints of pain in right leg. Each day it gets better. Has been out of bed with therapy. Physical Exam Musculoskeletal: Exam of right leg: Incision clean, dry and intact. Mild bloody drainage on dressings from medial aspect of incision. Demetrice and sutures intact. No surrounding erythema or evidence of a seroma or hematoma. Good cap refill and healthy tissue present. Hemovac site healed. Results & Data ([facility]) Vital Signs (Past 12 Hours) Vital Signs Temp Pulse Resp BP Pulse Ox 07/06/21 07:24 37.2 C 70 16 146/70 H 97 Laboratory Results 07/06/21 07/06/21 07/06/21 Range/Units 12:27 12:10 08:23 WBC 10.43 (4.8-10.8) K/uL RBC 3.15 L (4.7-6.1) M/uL Hgb 7.8 L (14.0-18.0) g/dL Hct 25.3 L (42-52) % MCV 80.3 (80-100) fL MCH 24.8 L (25-34) pg MCHC 30.8 L (32-36) g/dL RDW Std Deviation 47.3 H (36.4-46.3) fL RDW Coeff of Chan 16.2 H (11.5-14.5) % Plt Count 510 H (130-400) K/uL MPV 8.1 (7.4-10.4) fL Sodium (136-145) mmol/L Potassium (3.5-5.1) mmol/L Chloride (98-107) mmol/L Carbon Dioxide (21-32) mmol/L Anion Gap (3-11) BUN (7-18) mg/dl Creatinine (0.6-1.4) mg/dl Est Cr Clr Drug Dosing ml/min Est GFR ( Amer) ml/min Est GFR (Non-Af Amer) ml/min BUN/Creatinine Ratio (10-20) Glucose (70-99) mg/dl POC Glucose 186 H 233 H (70-99) mg/dl Calcium (8.5-10.1) mg/dl 07/06/21 07/05/21 07/05/21 Range/Units 06:21 22:05 21:18 WBC (4.8-10.8) K/uL RBC (4.7-6.1) M/uL Hgb (14.0-18.0) g/dL Hct (42-52) % MCV (80-100) fL MCH (25-34) pg MCHC (32-36) g/dL RDW Std Deviation (36.4-46.3) fL RDW Coeff of Chan (11.5-14.5) % Plt Count (130-400) K/uL MPV (7.4-10.4) fL Sodium 135 L (136-145) mmol/L Potassium 4.6 (3.5-5.1) mmol/L Chloride 102 (98-107) mmol/L Carbon Dioxide 27 (21-32) mmol/L Anion Gap 5.0 (3-11) BUN 12 (7-18) mg/dl Creatinine 0.73 (0.6-1.4) mg/dl Est Cr Clr Drug Dosing 98.9 ml/min Est GFR ( Amer) 113.6 ml/min Est GFR (Non-Af Amer) 98.0 ml/min BUN/Creatinine Ratio 16.5 (10-20) Glucose 225 H (70-99) mg/dl POC Glucose 102 H 86 (70-99) mg/dl Calcium 9.1 (8.5-10.1) mg/dl 07/05/21 07/05/21 Range/Units 20:53 17:19 WBC (4.8-10.8) K/uL RBC (4.7-6.1) M/uL Hgb (14.0-18.0) g/dL Hct (42-52) % MCV (80-100) fL MCH (25-34) pg MCHC (32-36) g/dL RDW Std Deviation (36.4-46.3) fL RDW Coeff of Chan (11.5-14.5) % Plt Count (130-400) K/uL MPV (7.4-10.4) fL Sodium (136-145) mmol/L Potassium (3.5-5.1) mmol/L Chloride (98-107) mmol/L Carbon Dioxide (21-32) mmol/L Anion Gap (3-11) BUN (7-18) mg/dl Creatinine (0.6-1.4) mg/dl Est Cr Clr Drug Dosing ml/min Est GFR ( Amer) ml/min Est GFR (Non-Af Amer) ml/min BUN/Creatinine Ratio (10-20) Glucose (70-99) mg/dl POC Glucose 62 L* 78 (70-99) mg/dl Calcium (8.5-10.1) mg/dl
[2021-07-06] MEDS: ATORVASTATIN 40 MG TAB PO SCH (20:43)
[2021-07-07] MEDS: AMPICILLIN 2,000 MG in SODIUM CHLOR 0.9% AD-VAN 100 ML IV SCH ×6 (00:13→22:03)
[2021-07-07] MEDS: LEVOTHYROXINE SODIUM 175 MCG TABLET PO SCH (05:32)
[2021-07-07 06:51] LABS: Hemoglobin 7.7 g/dL (14.0-18.0); Mean Corpuscular Hgb Conc 30.8 g/dL (32-36); Mean Corpuscular Volume 81.2 fL (80-100); Mean Platelet Volume 8.2 fL (7.4-10.4); Platelet Count 530 K/uL (130-400); RDW Coefficient of Variation 16.6 % (11.5-14.5); RDW Standard Deviation 48.2 fL (36.4-46.3); Red Blood Count 3.08 M/uL (4.7-6.1); White Blood Count 10.15 K/uL (4.8-10.8)
[2021-07-07 07:27] LABS: BUN Creatinine Ratio 18.5 (10-20); Calcium 9.1 mg/dl (8.5-10.1); Creatinine Clr Calc Pharmacy 84.9 ml/min; Est GFR (African American) 106.7 ml/min; Est GFR (Non-African American) 92.1 ml/min; Potassium 4.2 mmol/L (3.5-5.1)
[2021-07-07] MEDS: RASPBERRY SYRUP 5 ML UDP PO SCH (07:50)
[2021-07-07] MEDS: VANCOMYCIN HCL 125 MG/2.5ML SOLN PO SCH (07:51)
[2021-07-07] MEDS: PANTOprazole 40 MG TAB PO SCH (07:52)
[2021-07-07] MEDS: FERROUS SULFATE 325 MG TAB PO SCH ×2 (07:52→22:17)
[2021-07-07] MEDS: POTASSIUM CHLORIDE CRTAB 20 MEQ TABCR PO SCH ×2 (07:52→17:41)
[2021-07-07] MEDS: ASPIRIN 81 MG ECTAB PO SCH (07:52)
[2021-07-07] MEDS: CALCITRIOL 0.25 MCG CAPSULE PO SCH (07:52)
[2021-07-07] MEDS: FOLIC ACID 1 MG TAB PO SCH (07:53)
[2021-07-07] MEDS: HEPARIN SOD 5,000 UNIT/0.5 ML VIAL SQ SCH ×2 (07:53→22:18)
[2021-07-07] MEDS: CLOPIDOGREL BISULFATE 75 MG TAB PO SCH (07:53)
[2021-07-07] MEDS: ACETAMINOPHEN 500 MG TAB PO SCH ×3 (07:53→22:16)
[2021-07-07] MEDS: METOPROLOL TARTRATE 25 MG TAB PO SCH ×2 (07:54→22:17)
[2021-07-07] MEDS: INSULIN ASPART 100 UNITS/ML 3 ML PEN SC SCH ×4 (08:59→22:21)
[2021-07-07] MEDS: INSULIN GLARGINE SOLOSTAR 100 UNITS/ML 3 ML PEN SC SCH ×2 (09:02→22:20)
--- NOTE | 2021-07-07 13:41 | Pharmacy Report ---
Pharmacy Glycemic Short Note 2 - Date of Service July 07, 2021 - Glycemic Short BSG Results (Last 24 hours): 07/06/21 07/06/21 07/07/21 17:07 20:49 06:30 Glucose 85 POC Glucose 169 H 100 H 07/07/21 07/07/21 08:39 12:51 Glucose POC Glucose 106 H 155 H OUTPATIENT ANTIDIABETIC REGIMEN: * Novolog pump * Basal rate = 1.65 units/hr or ~40 units/day * CF: 30 mg/dL/unit * CR: 1 unit per 6 gm CHO consumed * HbA1c: 8.7% (07/01/21) ASSESSMENT: 07/07/21 * Patient's BSGs yesterday were 058-450-744-100 mg/dL. * Patient received 96 units of insulin (40 units of basal and 48 units of bolus). * Fasting BSG today was 106 mg/dL. * Continue Lantus dosing. * BSGs trend downwards throughout the day so loosen CF. Continue carb ratio. 07/06/21 * Patient's BSGs yesterday were 47-484-69-62 mg/dL. * Patient received 77 units of insulin (40 units of basal and 37 units of bolus). * Fasting BSG today was 233 mg/dL. * Continue Lantus dosing. BSG elevated today probably secondary to hypoglycemic episode yesterday evening. * Novolog loosened yesterday evening. Will continue. Of note, during previous hospitalizations, patient required much tighter Novolog coverage so this is unexpected. 07/04: * Pt had a hypoglycemic episode (BSG = 59 mg/dl) yesterday with the dinner BSG check. Lantus HS dose was reduced at this time. * However, fasting BSG today was elevated at 194 mg/dl. So, Lantus was increased back again. * Since dinner and HS BSGs were lower than expected yesterday, Novolog carb ratio loosened this AM. Pre-lunch BSG elevated but expect it to trend downwards this evening. 07/02/21: * With the exception of overnight hyperglycemia last night (maybe from diet resuming post-op?), BSGs have been well-controlled. * Would like to transition back to patient's insulin pump tomorrow if able. Patient will need his family to bring him in new supplies/insulin. 07/01 * BSGs have been relatively well-controlled since stopping pt's insulin pump and transitioning to SQ basal/bolus insulin. * Pt is NPO and is going to the OR today for R BKA. * Will strive to maintain relatively tight glycemic control to promote wound healing and discourage infection. 06/30 * Mr Chowdhury is a 66 y/o M with a PMH of T1DM who presents with worsening foot infection. He is typically maintained on an insulin pump with above settings. * Spoke with the patient whenever he was admitted. His insulin pump was disconnected at 1800 (approximately 45 hours before I spoke to him). He does not have the supplies so would prefer basal bolus. * After reviewing previous admission, noticed that patient did well on regimen of Lantus 15 units in morning and 35 units in evening. There is no data whenever patient is NPO. Find it reasonable to start the above regimen with 35 units tonight then insulin tomorrow morning can be adjusted to how patient responds. * Novolog will be q4 after midnight to ensure adequate glucose control prior to proposed surgery. PLAN FOR INPATIENT GLYCEMIC CONTROL: * Basal insulin * Lantus 20 units SQ BID * Bolus insulin: loosened CR * NovoLog per scale ACHS or Q6hrs while NPO * Goal Range: Low 110 mg/dL - High 140 mg/dL * Correction Factor: 35 mg/dL/unit * Nutritional / Prandial insulin per carb ratio of 1 unit per 6 grams CHO consumed PLAN FOR DISCHARGE: * A1c: 8.7% * Less stringent A1C goals (such as less than 8%) may be appropriate for patients with multiple comorbidities, but 8.7% is still outside of this goal. * Patient is being discharge to rehab so would like to go on basal bolus. Patient will need insulin prescription sent to rehab * Lantus 20 units BID * Novolog CF 35 CR 6
[2021-07-07] MEDS ORDERED: IRON SUCROSE 200 MG in 0.9 % SODIUM CHLORIDE 100 ML IV ONE (18:30)
--- NOTE | 2021-07-07 18:32 | Hospitalist Progress Note ---
Date of Service July 07, 2021 Assessment & Plan (1) Dry gangrene: Plan: - Also with Bacteremia - Enterococcus faecalis VRE - S/P BKA on 07/01 -- Revascularization January 2021 - initially successful but graft occluded and progressed to BKA - Repeat BCx on 07/04 with NGTD -- Echo normal but has prosthetic aortic valve but appears unremarkable - Continue Ampicillin -- May need peripheral line and IV Abx course - Placed ID consultation to assist with duration and any further adjustments - Orthopedics following - plan to follow-up as outpatient (2) Clostridium difficile colitis: Plan: - Intermittent loose stool - no abdominal pains/fever - Continue Vancomycin 125 mg daily to complete taper - may actually continue the Vanc while on Abx to prevent recurrence (3) Acute hyponatremia: Plan: - STABLE - Continue to hold Thiazide diuretic (4) Folate deficiency: Plan: - Continue supplementation (5) Peripheral arterial disease: Plan: - Continue ASA/Plavix - Atorvastatin 80 mg HS (6) Diabetes type 1, controlled: Plan: - Continue insulin pump; appreciate glycemic control - Did have some lows this AM but improved (7) Anemia: Plan: - Acute blood loss anemia in the post operative setting - Hgb 7.7 with vitals stable and asymptomic - will give Venofer x 1 dose today as he does have low iron counts (8) DVT prophylaxis: Plan: - Heparin Plan: - PT/OT evaluations - Awaiting rehab determination Admission and Anticipated Discharge Date Admission Date: June 30, 2021 Subjective Reports feeling pretty well today. Pain is controlled. Hgb staying Review of Systems Review of Systems: REVIEW OF SYSTEMS General/Constitutional: Denies fever/chills Cardiovascular: Denies chest pain, palpitations, edema Respiratory: Denies cough, SOB, wheezing, orthopnea GI: + loose stool; Denies nausea, vomiting, abdominal pain, constipation, melena/hematochezia : Denies dysuria Musculoskeletal: + phantom stump pain (controlled) Neurologic: Denies dizziness/lightheadedness Skin: Denies rash Physical Exam Physical Exam: PHYSICAL EXAM General Appearance: WDWN in NAD who is A&O x 3 HEENT: Head is normocephalic/atraumatic; Hearing grossly intact; Mucous membranes moist Neck: Supple; Trachea midline; Neg JVD Heart: RRR with murmur Lungs: CTA in all lung fuller bilaterally; Respirations unlabored; Neg accessory muscle use Abdomen: Soft, non-tender, non-distended; Positive BS x 4 quadrants Extremities: Neg cyanosis or edema; R stump with dressing in place - C/D/I Neurological: Speech clear; Gross motor/sensory function intact; Neg focal neurologic deficits Psychiatric: Appropriate mood/affect Skin: Normal Color; Warm/Dry Results & Data Results & Data ([facility]) Vital Signs (Past 12 Hours) Vital Signs Temp Pulse Resp BP Pulse Ox 07/07/21 15:36 36.9 C 74 17 104/66 99 07/07/21 07:36 36.8 C 69 17 137/84 96 PG Care Time/CCT Total # of Minutes Spent Total Time Spent with Patient: Total time spent is greater than 50% in coordination of care (as documented) at patient's floor/unit and/or counseling patient: Coding Level of Care Code 77918 Subseq Hosp Care Lvl 3 Diagnoses Dry gangrene I96 Clostridium difficile colitis A04.72 Acute hyponatremia E87.1 Folate deficiency E53.8 Peripheral arterial disease I73.9 Diabetes type 1, controlled E10.9 Anemia D64.9 DVT prophylaxis Z29.9
[2021-07-07] MEDS: oxyCODONE HCL IR 5 MG TAB (IMMEDIATE RELEASE) PO PRN (19:08)
[2021-07-07] MEDS: ATORVASTATIN 40 MG TAB PO SCH (22:17)
[2021-07-08] MEDS: AMPICILLIN 2,000 MG in SODIUM CHLOR 0.9% AD-VAN 100 ML IV SCH ×6 (01:16→21:33)
[2021-07-08] MEDS: LEVOTHYROXINE SODIUM 175 MCG TABLET PO SCH (05:20)
[2021-07-08] MEDS: FERROUS SULFATE 325 MG TAB PO SCH ×2 (07:47→21:40)
[2021-07-08] MEDS: ACETAMINOPHEN 500 MG TAB PO SCH ×3 (07:48→21:40)
[2021-07-08] MEDS: PANTOprazole 40 MG TAB PO SCH (07:48)
[2021-07-08] MEDS: HEPARIN SOD 5,000 UNIT/0.5 ML VIAL SQ SCH ×2 (07:48→21:41)
[2021-07-08] MEDS: CALCITRIOL 0.25 MCG CAPSULE PO SCH (07:48)
[2021-07-08] MEDS: FOLIC ACID 1 MG TAB PO SCH (07:48)
[2021-07-08] MEDS: CLOPIDOGREL BISULFATE 75 MG TAB PO SCH (07:48)
[2021-07-08] MEDS: METOPROLOL TARTRATE 25 MG TAB PO SCH ×2 (07:49→21:39)
[2021-07-08] MEDS: POTASSIUM CHLORIDE CRTAB 20 MEQ TABCR PO SCH ×2 (07:49→17:50)
[2021-07-08] MEDS: ASPIRIN 81 MG ECTAB PO SCH (07:50)
[2021-07-08] MEDS: RASPBERRY SYRUP 5 ML UDP PO SCH (07:50)
[2021-07-08] MEDS: VANCOMYCIN HCL 125 MG/2.5ML SOLN PO SCH (07:58)
[2021-07-08] MEDS: INSULIN GLARGINE SOLOSTAR 100 UNITS/ML 3 ML PEN SC SCH ×2 (08:44→21:43)
[2021-07-08] MEDS: INSULIN ASPART 100 UNITS/ML 3 ML PEN SC SCH ×4 (08:45→21:44)
--- NOTE | 2021-07-08 10:10 | Pharmacy Report ---
Pharmacy Glycemic Short Note 2 - Date of Service July 08, 2021 - Glycemic Short BSG Results (Last 24 hours): 07/07/21 07/07/21 07/07/21 12:51 16:56 20:37 POC Glucose 155 H 166 H 184 H 07/08/21 07/08/21 07/08/21 08:17 08:18 08:19 POC Glucose 371 H* 368 H* 389 H* OUTPATIENT ANTIDIABETIC REGIMEN: * Novolog pump * Basal rate = 1.65 units/hr or ~40 units/day * CF: 30 mg/dL/unit * CR: 1 unit per 6 gm CHO consumed * HbA1c: 8.7% (07/01/21) ASSESSMENT: 07/08: * Ron received a total of 72 units of insulin yesterday (40 units basal + 32 units bolus) * BSGs were: [phone] mg/dL * Severe hyperglycemia this morning with three consecutive checks of 371-368-389 mg/dL * Patient's fasting BSGs have been fairly stable. Spoke with RN who did find broken crackers in patient's bed this morning leading me to believe this was not a true fasting BSG and it is erroneous. * No changes to basal insulin. * BSGs trended upwards throughout the day yesterday likely due to insufficient correctional/prandial insulin coverage. * Will tighten correction factor and carb ratio today. 07/07: * Patient's BSGs yesterday were 101-708-888-100 mg/dL. * Patient received 96 units of insulin (40 units of basal and 48 units of bolus). * Fasting BSG today was 106 mg/dL. * Continue Lantus dosing. * BSGs trend downwards throughout the day so loosen CF. Continue carb ratio. 07/06: * Patient's BSGs yesterday were 01-547-72-62 mg/dL. * Patient received 77 units of insulin (40 units of basal and 37 units of bolus). * Fasting BSG today was 233 mg/dL. * Continue Lantus dosing. BSG elevated today probably secondary to hypoglycemic episode yesterday evening. * Novolog loosened yesterday evening. Will continue. Of note, during previous hospitalizations, patient required much tighter Novolog coverage so this is unexpected. PLAN FOR INPATIENT GLYCEMIC CONTROL: * Outpatient insulin pump on hold * Basal insulin - no change * Lantus 20 units SC BID * Bolus insulin - tightened CF/CR * NovoLog per scale ACHS or Q6hrs while NPO * Goal Range: Low 110 mg/dL - High 140 mg/dL * Correction Factor: 30 mg/dL/unit * Nutritional / Prandial insulin per carb ratio of 1 unit per 5 grams CHO consumed PLAN FOR DISCHARGE: * HbA1c was 8.7% from this admission. * Less stringent HbA1C goals (such as less than 8%) may be appropriate for patients with multiple comorbidities, but 8.7% is still outside of this goal. * Patient is being discharge to rehab so would like to go on basal bolus. Patient will need insulin prescription sent to rehab. * Lantus 20 units SC BID * Novolog CF 30 CR 5
--- NOTE | 2021-07-08 13:58 | Hospitalist Progress Note ---
Date of Service July 08, 2021 Assessment & Plan (1) Dry gangrene: Plan: - Also with Bacteremia - Enterococcus faecalis VRE - S/P BKA on 07/01 -- Revascularization January 2021 - initially successful but graft occluded and progressed to BKA - Repeat BCx on 07/04 with NGTD -- Echo normal but has prosthetic aortic valve but appears unremarkable -- ID mentioned evaluation with JUAN PABLO - BCx did clear quickly and even though TTE is not as specific for vegetation there is a low suspicion for endocarditis as no ongoing fevers/infection. Could monitor closely for any worsening symptoms/infection and consider JUAN PABLO at that time - Continue Ampicillin -- Will need peripheral line and IV Abx course - Placed ID consultation - as discussed above -- Could consider empiric treatment with 6 weeks Abx with Rocephin added for coverage - Orthopedics following - plan to follow-up as outpatient (2) Clostridium difficile colitis: Plan: - Intermittent loose stool - no abdominal pains/fever - Continue Vancomycin 125 mg daily to complete taper - may actually continue the Vanc while on Abx to prevent recurrence (3) Acute hyponatremia: Plan: - STABLE - Continue to hold Thiazide diuretic (4) Folate deficiency: Plan: - Continue supplementation (5) Peripheral arterial disease: Plan: - Continue ASA/Plavix - Atorvastatin 80 mg HS (6) Diabetes type 1, controlled: Plan: - Appreciate glycemic control - Plans to use injectables while at rehab and return to pump on discharge home (7) Anemia: Plan: - Acute blood loss anemia in the post operative setting - Hgb 7.7 with vitals stable and asymptomic - will give Venofer x 1 dose today and monitor (8) DVT prophylaxis: Plan: - Heparin Plan: - Awaiting rehab determination Admission and Anticipated Discharge Date Admission Date: June 30, 2021 Subjective Reports continuing to do well today. Pain is controlled. Has been working well with physical therapy. Verbalizes no new complaints Review of Systems Review of Systems: REVIEW OF SYSTEMS General/Constitutional: Denies fever/chills Cardiovascular: Denies chest pain, palpitations, edema Respiratory: Denies cough, SOB, wheezing, orthopnea GI: + loose stool; Denies nausea, vomiting, abdominal pain, constipation, melena/hematochezia : Denies dysuria Musculoskeletal: + phantom stump pain (controlled) Neurologic: Denies dizziness/lightheadedness Skin: Denies rash Physical Exam Physical Exam: PHYSICAL EXAM General Appearance: WDWN in NAD who is A&O x 3 HEENT: Head is normocephalic/atraumatic; Hearing grossly intact; Mucous membranes moist Neck: Supple; Trachea midline; Neg JVD Heart: RRR with murmur Lungs: CTA in all lung fuller bilaterally; Respirations unlabored; Neg accessory muscle use Abdomen: Soft, non-tender, non-distended; Positive BS x 4 quadrants Extremities: Neg cyanosis or edema; R stump with dressing in place - C/D/I Neurological: Speech clear; Gross motor/sensory function intact; Neg focal neurologic deficits Psychiatric: Appropriate mood/affect Skin: Normal Color; Warm/Dry Results & Data Results & Data ([facility]) Vital Signs (Past 12 Hours) Vital Signs Temp Pulse Resp BP Pulse Ox 07/08/21 07:44 36.9 C 71 16 129/71 94 PG Care Time/CCT Total # of Minutes Spent Total Time Spent with Patient: Total time spent is greater than 50% in coordination of care (as documented) at patient's floor/unit and/or counseling patient: Coding Level of Care Code 94729 Subseq Hosp Care Lvl 2 Diagnoses Dry gangrene I96 Clostridium difficile colitis A04.72 Acute hyponatremia E87.1 Folate deficiency E53.8 Peripheral arterial disease I73.9 Diabetes type 1, controlled E10.9 Anemia D64.9 DVT prophylaxis Z29.9
[2021-07-08] MEDS: ATORVASTATIN 40 MG TAB PO SCH (21:40)
[2021-07-08] MEDS: oxyCODONE HCL IR 5 MG TAB (IMMEDIATE RELEASE) PO PRN (21:50)
[2021-07-09] MEDS: AMPICILLIN 2,000 MG in SODIUM CHLOR 0.9% AD-VAN 100 ML IV SCH ×6 (00:57→20:48)
[2021-07-09] MEDS: LEVOTHYROXINE SODIUM 175 MCG TABLET PO SCH (04:55)
[2021-07-09 06:09] LABS: Hematocrit (blood only) 24.2 % (42-52); Hemoglobin 7.4 g/dL (14.0-18.0); Mean Corpuscular Hemoglobin 25.1 pg (25-34); Mean Corpuscular Hgb Conc 30.6 g/dL (32-36); Mean Platelet Volume 8.2 fL (7.4-10.4); Platelet Count 496 K/uL (130-400); RDW Coefficient of Variation 17.2 % (11.5-14.5); RDW Standard Deviation 49.1 fL (36.4-46.3); Red Blood Count 2.95 M/uL (4.7-6.1); White Blood Count 7.84 K/uL (4.8-10.8)
[2021-07-09 07:04] LABS: BUN Creatinine Ratio 19.8 (10-20); Calcium 8.5 mg/dl (8.5-10.1); Est GFR (African American) 105.7 ml/min; Est GFR (Non-African American) 91.2 ml/min; Potassium 4.8 mmol/L (3.5-5.1)
[2021-07-09 07:22] LABS: Beta-Hydroxybutyrate 0.74 mg/dl (0.2-2.81)
[2021-07-09] MEDS ORDERED: INSULIN HUMAN REGULAR PER UNIT 8 UNITS in SYRINGE 7.92 ML IV STA (08:19)
[2021-07-09] MEDS: ACETAMINOPHEN 500 MG TAB PO SCH ×3 (10:21→21:01)
[2021-07-09] MEDS: FERROUS SULFATE 325 MG TAB PO SCH ×2 (10:21→21:01)
[2021-07-09] MEDS: CALCITRIOL 0.25 MCG CAPSULE PO SCH (10:22)
[2021-07-09] MEDS: ASPIRIN 81 MG ECTAB PO SCH (10:22)
[2021-07-09] MEDS: METOPROLOL TARTRATE 25 MG TAB PO SCH ×2 (10:22→21:02)
[2021-07-09] MEDS: POTASSIUM CHLORIDE CRTAB 20 MEQ TABCR PO SCH ×2 (10:22→16:52)
[2021-07-09] MEDS: CLOPIDOGREL BISULFATE 75 MG TAB PO SCH (10:23)
[2021-07-09] MEDS: PANTOprazole 40 MG TAB PO SCH (10:23)
[2021-07-09] MEDS: FOLIC ACID 1 MG TAB PO SCH (10:23)
[2021-07-09] MEDS: HEPARIN SOD 5,000 UNIT/0.5 ML VIAL SQ SCH ×2 (10:23→21:04)
[2021-07-09] MEDS: INSULIN GLARGINE SOLOSTAR 100 UNITS/ML 3 ML PEN SC SCH ×2 (10:24→20:54)
[2021-07-09] MEDS: VANCOMYCIN HCL 125 MG/2.5ML SOLN PO SCH (10:24)
[2021-07-09] MEDS: RASPBERRY SYRUP 5 ML UDP PO SCH (10:24)
[2021-07-09] MEDS: INSULIN ASPART 100 UNITS/ML 3 ML PEN SC SCH ×5 (10:27→20:53)
[2021-07-09] MEDS ORDERED: INSULIN REGULAR 250 UNITS in SODIUM CHLORIDE 0.9% 247.5 ML IV SCH (13:00)
--- NOTE | 2021-07-09 13:09 | Pharmacy Report ---
Pharmacy Glycemic Short Note 2 - Date of Service July 09, 2021 - Glycemic Short BSG Results (Last 24 hours): 07/08/21 07/08/21 07/09/21 16:57 20:38 05:47 Glucose 359 H* POC Glucose 222 H 198 H 07/09/21 07/09/21 07/09/21 08:03 08:04 08:05 Glucose POC Glucose 407 H* 363 H* 393 H* 07/09/21 07/09/21 07/09/21 12:12 12:13 12:13 Glucose POC Glucose 409 H* 438 H* 430 H* OUTPATIENT ANTIDIABETIC REGIMEN: * Novolog pump * Basal rate = 1.65 units/hr or ~40 units/day * CF: 30 mg/dL/unit * CR: 1 unit per 6 gm CHO consumed * HbA1c: 8.7% (07/01/21) ASSESSMENT: 07/09: * Patient received a total of 101 units of insulin yesterday (40 units basal + 61 units bolus) * This was ~40% increase from the previous day * BSGs were uncontrolled: [phone] mg/dL * Fasting BSG this AM continued to be uncontrolled at 407-363-393 mg/dL * Unsure of cause of severe hyperglycemia in this patient. No changes to medications or stress. No snacking identified. * Increased basal by ~20%, tightened CF, and gave an 8 unit IV bolus of insulin this AM (all given at approximately 1030) * Lunch BSGs at ~1215 were: 409-438-430 mg/dL * Decision made to start patient on insulin drip 07/08: * Ron received a total of 72 units of insulin yesterday (40 units basal + 32 units bolus) * BSGs were: 007-117-434-184 mg/dL * Severe hyperglycemia this morning with three consecutive checks of 371-368-389 mg/dL * Patient's fasting BSGs have been fairly stable. Spoke with RN who did find broken crackers in patient's bed this morning leading me to believe this was not a true fasting BSG and it is erroneous. * No changes to basal insulin. * BSGs trended upwards throughout the day yesterday likely due to insufficient correctional/prandial insulin coverage. * Will tighten correction factor and carb ratio today. 07/07: * Patient's BSGs yesterday were 194-592-215-100 mg/dL. * Patient received 96 units of insulin (40 units of basal and 48 units of bolus). * Fasting BSG today was 106 mg/dL. * Continue Lantus dosing. * BSGs trend downwards throughout the day so loosen CF. Continue carb ratio. PLAN FOR INPATIENT GLYCEMIC CONTROL: * Outpatient insulin pump on hold * Start Regular Insulin Infusion around 1300 * No bolus. Starting rate 3 units/hr per calculator. Goal range 110-180 * Do not use calculator to determine carb ratio. See set carb ratio below. * May need to recheck labs this evening to monitor for DKA and hypokalemia. * Pending order entered for when insulin infusion can be discontinued. * Basal insulin - increased * Lantus 25 units SC BID * Bolus insulin - no CF while on drip, just set CR of 5 * NovoLog per scale ACHS * Nutritional / Prandial insulin per carb ratio of 1 unit per 5 grams CHO consumed PLAN FOR DISCHARGE: * HbA1c was 8.7% from this admission. * Less stringent HbA1C goals (such as less than 8%) may be appropriate for patients with multiple comorbidities, but 8.7% is still outside of this goal. * Patient is being discharge to rehab so would like to go on basal bolus. Patient will need insulin prescription sent to rehab. * Dosing recommendations TBD
--- NOTE | 2021-07-09 14:56 | Progress Notes ---
DATE OF SERVICE: 07/09/2021 Mr. Chowdhury is resting comfortably in bed. He is seen in conjunction with his physical therapist. She reports he is doing well forwards with some difficulty backwards. He has remained afebrile. His vit al signs are stable. He remains on antibiotics. He was receiving heparin subQ for DVT prophylaxis. Placement at [facility] is pending approval. The dressing is clean and dry. Splint in place. We wi ll continue to monitor while he is here in the hospital. He can be up and about with PT. We will garza ve to monitor the left leg for breakdown as he has diabetic issues and dysvascularity there as well. His hemoglobin today is 7, hematocrit 24, platelets are 496, his white count is 8. PRP is noted. We will continue antibiotics per ID recs. Job ID: [id number]
[2021-07-09] MEDS ORDERED: INSULIN ASPART 100 UNITS/ML 3 ML PEN SC SCH (16:30)
--- NOTE | 2021-07-09 17:16 | Hospitalist Progress Note ---
Date of Service July 09, 2021 Assessment & Plan (1) Dry gangrene: Plan: - Also with Bacteremia - Enterococcus faecalis VRE - S/P BKA on 07/01 -- Revascularization January 2021 - initially successful but graft occluded and progressed to BKA - Repeat BCx on 07/04 with NGTD -- Echo normal but has prosthetic aortic valve but appears unremarkable -- ID mentioned evaluation with JUAN PABLO - BCx did clear quickly and even though TTE is not as specific for vegetation there is a low suspicion for endocarditis as no ongoing fevers/infection. Discussed with cardiology, could even consider repeat TTE so monitor for any changes before going to JUAN PABLO. Could monitor closely for any worsening symptoms/infection and consider JUAN PABLO at that time - Continue Ampicillin -- Will need peripheral line and IV Abx course - Abx until July 17 - Placed ID consultation - as discussed above -- Could consider empiric treatment with 6 weeks Abx with Rocephin added for coverage - Orthopedics following - plan to follow-up as outpatient (2) Clostridium difficile colitis: Plan: - Intermittent loose stool - no abdominal pains/fever - Completed Vancomycin 125 mg daily taper - however will continue with daily dosing while on IV Abx (3) Acute hyponatremia: Plan: - STABLE - Continue to hold Thiazide diuretic (4) Folate deficiency: Plan: - Continue supplementation (5) Peripheral arterial disease: Plan: - Continue ASA/Plavix - Atorvastatin 80 mg HS (6) Diabetes type 1, controlled: Plan: - Having higher glucose readings which is responding to insulin gtt and will monitor for further adjustments - Appreciate glycemic control - Plans to use injectables while at rehab and return to pump on discharge home (7) Anemia: Plan: - Acute blood loss anemia in the post operative setting - Hgb 7.4 with vitals stable and asymptomic - if still remaining low may give 1 unit (8) DVT prophylaxis: Plan: - Heparin Plan: - Awaiting rehab determination; however may need to postpone given insulin gtt currently - Needs U/S peripheral line Admission and Anticipated Discharge Date Admission Date: June 30, 2021 Subjective Reports feeling good. BSGs have been elevated and insulin gtt was started. Is asymptomatic with his glucose readings but they are starting to trend down. Still awaiting insurance authorization for rehab. Review of Systems Review of Systems: REVIEW OF SYSTEMS General/Constitutional: Denies fever/chills Cardiovascular: Denies chest pain, palpitations, edema Respiratory: Denies cough, SOB, wheezing GI: + loose stool; Denies nausea, vomiting, abdominal pain : Denies dysuria Musculoskeletal: + phantom stump pain (controlled) Neurologic: Denies dizziness/lightheadedness Skin: Denies rash Physical Exam Physical Exam: PHYSICAL EXAM General Appearance: WDWN in NAD who is A&O x 3 HEENT: Head is normocephalic/atraumatic; Hearing grossly intact; Mucous membranes moist Neck: Supple; Trachea midline; Neg JVD Heart: RRR with murmur Lungs: CTA in all lung fuller bilaterally; Respirations unlabored; Neg accessory muscle use Abdomen: Soft, non-tender, non-distended; Positive BS x 4 quadrants Extremities: Neg cyanosis or edema; R stump with dressing in place - C/D/I Neurological: Speech clear; Gross motor/sensory function intact; Neg focal neurologic deficits Psychiatric: Appropriate mood/affect Skin: Normal Color; Warm/Dry Results & Data Results & Data ([facility]) Vital Signs (Past 12 Hours) Vital Signs Temp Pulse Resp BP Pulse Ox 07/09/21 07:20 36.6 C 68 16 155/75 H 96 PG Care Time/CCT Total # of Minutes Spent Total Time Spent with Patient: Total time spent is greater than 50% in coordination of care (as documented) at patient's floor/unit and/or counseling patient: Coding Level of Care Code 22029 Subseq Hosp Care Lvl 3 Diagnoses Dry gangrene I96 Clostridium difficile colitis A04.72 Acute hyponatremia E87.1 Folate deficiency E53.8 Peripheral arterial disease I73.9 Diabetes type 1, controlled E10.9 Anemia D64.9 DVT prophylaxis Z29.9
[2021-07-09 17:31] LABS: Hematocrit (blood only) 25.3 % (42-52); Hemoglobin 7.6 g/dL (14.0-18.0); Mean Corpuscular Volume 83.2 fL (80-100); Mean Platelet Volume 8.1 fL (7.4-10.4); Platelet Count 463 K/uL (130-400); RDW Coefficient of Variation 17.6 % (11.5-14.5); RDW Standard Deviation 51.2 fL (36.4-46.3); Red Blood Count 3.04 M/uL (4.7-6.1); White Blood Count 8.71 K/uL (4.8-10.8)
[2021-07-09 17:47] LABS: BUN Creatinine Ratio 27.5 (10-20); Calcium 8.8 mg/dl (8.5-10.1); Est GFR (African American) 111.7 ml/min; Est GFR (Non-African American) 96.4 ml/min; Potassium 4.8 mmol/L (3.5-5.1)
[2021-07-09] MEDS ORDERED: STAT IV Infusion **Titration per Protocol STA (19:49)
[2021-07-09] MEDS: ATORVASTATIN 40 MG TAB PO SCH (21:01)
[2021-07-10] MEDS: AMPICILLIN 2,000 MG in SODIUM CHLOR 0.9% AD-VAN 100 ML IV SCH ×6 (00:26→20:17)
[2021-07-10] MEDS: LEVOTHYROXINE SODIUM 175 MCG TABLET PO SCH (05:28)
[2021-07-10] MEDS: POTASSIUM CHLORIDE CRTAB 20 MEQ TABCR PO SCH ×2 (08:59→17:23)
[2021-07-10] MEDS: PANTOprazole 40 MG TAB PO SCH (09:00)
[2021-07-10] MEDS: FOLIC ACID 1 MG TAB PO SCH (09:00)
[2021-07-10] MEDS: RASPBERRY SYRUP 5 ML UDP PO SCH (09:00)
[2021-07-10] MEDS: CALCITRIOL 0.25 MCG CAPSULE PO SCH (09:00)
[2021-07-10] MEDS: ASPIRIN 81 MG ECTAB PO SCH (09:00)
[2021-07-10] MEDS: FERROUS SULFATE 325 MG TAB PO SCH ×2 (09:00→20:16)
[2021-07-10] MEDS: VANCOMYCIN HCL 125 MG/2.5ML SOLN PO SCH (09:00)
[2021-07-10] MEDS: METOPROLOL TARTRATE 25 MG TAB PO SCH ×2 (09:00→20:14)
[2021-07-10] MEDS: CLOPIDOGREL BISULFATE 75 MG TAB PO SCH (09:00)
[2021-07-10] MEDS: ACETAMINOPHEN 500 MG TAB PO SCH ×3 (09:00→20:14)
[2021-07-10] MEDS: INSULIN GLARGINE SOLOSTAR 100 UNITS/ML 3 ML PEN SC SCH ×2 (09:14→21:09)
[2021-07-10] MEDS: HEPARIN SOD 5,000 UNIT/0.5 ML VIAL SQ SCH ×2 (09:14→20:17)
[2021-07-10] MEDS: INSULIN ASPART 100 UNITS/ML 3 ML PEN SC SCH ×4 (09:14→21:09)
[2021-07-10] MEDS ORDERED: SODIUM CHLORIDE 0.9% 250 ML IV PRN (09:38)
--- NOTE | 2021-07-10 10:45 | Hospitalist Progress Note ---
Date of Service July 10, 2021 Assessment & Plan (1) Dry gangrene: Plan: - Also with Bacteremia - Enterococcus faecalis VRE - S/P BKA on 07/01 -- Revascularization January 2021 - initially successful but graft occluded and progressed to BKA - Repeat BCx on 07/04 with NGTD -- Echo normal but has prosthetic aortic valve but appears unremarkable -- ID mentioned evaluation with JUAN PABLO - BCx did clear quickly and even though TTE is not as specific for vegetation there is a low suspicion for endocarditis as no ongoing fevers/infection. Discussed with cardiology, could even consider repeat TTE to monitor for any changes from previous echo as suspicion for endocarditis is low. Could monitor closely for any worsening symptoms/infection and consider JUAN PABLO at that time - Continue Ampicillin -- Will need peripheral line and IV Abx course - Abx until July 17 (14 day course from negative blood cultures) - Placed ID consultation - as discussed above -- Could consider empiric treatment with 6 weeks Abx with Rocephin added for coverage - Orthopedics following - plan to follow-up as outpatient (2) Clostridium difficile colitis: Plan: - Intermittent loose stool - no abdominal pains/fever - Completed Vancomycin 125 mg daily taper for infection - however will continue with daily dosing while on IV Abx (3) Acute hyponatremia: Plan: - STABLE - Continue to hold Thiazide diuretic (4) Folate deficiency: Plan: - Continue supplementation (5) Peripheral arterial disease: Plan: - Continue ASA/Plavix - Atorvastatin 80 mg HS (6) Diabetes type 1, controlled: Plan: - Had higher BSGs requiring insulin gtt on 07/09 now off gtt and will monitor for further adjustments - Appreciate glycemic control - Plans to use injectables while at rehab and return to pump on discharge home - will need insulin orders given to rehab facility (7) Anemia: Plan: - Acute blood loss anemia in the post operative setting - Hgb remaining in 7s with vitals stable and asymptomatic - will give 1 unit as counts remaining unchanged (8) DVT prophylaxis: Plan: - Heparin Plan: - Awaiting rehab determination - Needs U/S peripheral line Admission and Anticipated Discharge Date Admission Date: June 30, 2021 Subjective Reports feeling well today. Pain remains controlled. Tolerating a diet without issue. BSGs much improved today and insulin gtt has been removed. He remains afebrile and verbalizes no new complaints. Remains with loose stool but has some form to it. Hgb remains in the 7s and asymptomatic however not seeing much change so will transfuse one unit. Review of Systems Review of Systems: REVIEW OF SYSTEMS General/Constitutional: Denies fever/chills Cardiovascular: Denies chest pain, palpitations, edema Respiratory: Denies cough, SOB, wheezing GI: + loose stool (stable - has some formed component); Denies nausea, vomiting, abdominal pain : Denies dysuria Musculoskeletal: + phantom stump pain (controlled) Neurologic: Denies dizziness/lightheadedness Skin: Denies rash Physical Exam Physical Exam: PHYSICAL EXAM General Appearance: WDWN in NAD who is A&O x 3 HEENT: Head is normocephalic/atraumatic; Hearing grossly intact; Mucous membranes moist Neck: Supple; Trachea midline; Neg JVD Heart: RRR with murmur Lungs: CTA in all lung fuller bilaterally; Respirations unlabored; Neg accessory muscle use Abdomen: Soft, non-tender, non-distended; Positive BS x 4 quadrants Extremities: Neg cyanosis or edema; R stump with dressing in place - C/D/I Neurological: Speech clear; Gross motor/sensory function intact; Neg focal neurologic deficits Psychiatric: Appropriate mood/affect Skin: Normal Color; Warm/Dry Results & Data Results & Data ([facility]) Vital Signs (Past 12 Hours) Vital Signs Temp Pulse Resp BP BP Pulse Ox 07/10/21 07:40 36.6 C 68 16 116/72 96 07/09/21 22:41 36.8 C 69 16 107/68 99 PG Care Time/CCT Total # of Minutes Spent Total Time Spent with Patient: Total time spent is greater than 50% in coordination of care (as documented) at patient's floor/unit and/or counseling patient: Coding Level of Care Code 50489 Subseq Hosp Care Lvl 3 Diagnoses Dry gangrene I96 Clostridium difficile colitis A04.72 Acute hyponatremia E87.1 Folate deficiency E53.8 Peripheral arterial disease I73.9 Diabetes type 1, controlled E10.9 Anemia D64.9 DVT prophylaxis Z29.9
[2021-07-10] MEDS ORDERED: INSULIN HUMAN REGULAR PER UNIT 8 UNITS in SYRINGE 7.92 ML IV ONE (12:45)
[2021-07-10] MEDS: oxyCODONE HCL IR 5 MG TAB (IMMEDIATE RELEASE) PO PRN (14:21)
--- NOTE | 2021-07-10 15:07 | Pharmacy Report ---
Pharmacy Glycemic Short Note 2 - Date of Service July 10, 2021 - Glycemic Short BSG Results (Last 24 hours): 07/09/21 07/09/21 07/09/21 15:41 16:48 17:21 Glucose 197 H POC Glucose 308 H* 248 H 07/09/21 07/09/21 07/09/21 17:37 18:36 19:35 Glucose POC Glucose 194 H 200 H 156 H 07/09/21 07/09/21 07/09/21 20:35 20:55 21:11 Glucose POC Glucose 101 H 92 86 07/09/21 07/09/21 07/09/21 21:26 21:40 21:56 Glucose POC Glucose 100 H 105 H 94 07/09/21 07/09/21 07/10/21 22:39 23:09 00:22 Glucose POC Glucose 104 H 122 H 166 H 07/10/21 07/10/21 07/10/21 01:21 03:21 05:26 Glucose POC Glucose 146 H 141 H 139 H 07/10/21 07/10/21 07/10/21 07:24 12:18 12:19 Glucose POC Glucose 110 H 468 H* 467 H* OUTPATIENT ANTIDIABETIC REGIMEN: * Novolog pump * Basal rate = 1.65 units/hr or ~40 units/day * CF: 30 mg/dL/unit * CR: 1 unit per 6 gm CHO consumed * HbA1c: 8.7% (07/01/21) ASSESSMENT: 07/10: * Patient continues to have fluctuating BSG control * Yesterday, he was started on IV insulin for severe hyperglycemia. BSG normalized around 1930 and continued to be at/near goal overnight. SQ insulin was overlapped with IV infusion. Patient had fasting BSG of 110 mg/dL this morning. I discontinued the IV insulin infusion (at that time it was running at 1.9 units/hr). BSG jumped to 468 mg/dL. Repeat BSG remained > 400 mg/dL after IV insulin bolus and 26 units of novolog, therefore I will restart IV insulin infusion. 07/09: * Patient received a total of 101 units of insulin yesterday (40 units basal + 61 units bolus) * This was ~40% increase from the previous day * BSGs were uncontrolled: 159-240-438-798-562-664-198 mg/dL * Fasting BSG this AM continued to be uncontrolled at 407-363-393 mg/dL * Unsure of cause of severe hyperglycemia in this patient. No changes to medications or stress. No snacking identified. * Increased basal by ~20%, tightened CF, and gave an 8 unit IV bolus of insulin this AM (all given at approximately 1030) * Lunch BSGs at ~1215 were: 409-438-430 mg/dL * Decision made to start patient on insulin drip 07/08: * Ron received a total of 72 units of insulin yesterday (40 units basal + 32 units bolus) * BSGs were: [phone] mg/dL * Severe hyperglycemia this morning with three consecutive checks of 371-368-389 mg/dL * Patient's fasting BSGs have been fairly stable. Spoke with RN who did find broken crackers in patient's bed this morning leading me to believe this was not a true fasting BSG and it is erroneous. * No changes to basal insulin. * BSGs trended upwards throughout the day yesterday likely due to insufficient correctional/prandial insulin coverage. * Will tighten correction factor and carb ratio today. 07/07: * Patient's BSGs yesterday were [phone] mg/dL. * Patient received 96 units of insulin (40 units of basal and 48 units of bolus). * Fasting BSG today was 106 mg/dL. * Continue Lantus dosing. * BSGs trend downwards throughout the day so loosen CF. Continue carb ratio. PLAN FOR INPATIENT GLYCEMIC CONTROL: * Outpatient insulin pump on hold * Restart Regular Insulin Infusion * 2 unit bolus. Starting rate 1.9 units/hr per calculator. Goal range 110-180 * Do not use calculator to determine carb ratio. See set carb ratio below. * Pending order entered for when insulin infusion can be discontinued. * Basal insulin * Lantus 25 units SC BID * Bolus insulin - no CF while on drip, just set CR of 5 * NovoLog per scale ACHS * Nutritional / Prandial insulin per carb ratio of 1 unit per 5 grams CHO consumed PLAN FOR DISCHARGE: * HbA1c was 8.7% from this admission. * Less stringent HbA1C goals (such as less than 8%) may be appropriate for patients with multiple comorbidities, but 8.7% is still outside of this goal. * Patient is being discharge to rehab so would like to go on basal bolus. Patient will need insulin prescription sent to rehab. * Dosing recommendations TBD
[2021-07-10] MEDS ORDERED: NovoLIN-R BOLUS FROM BAG IV ONE (15:30)
[2021-07-10] MEDS: INSULIN REGULAR 250 UNITS in SODIUM CHLORIDE 0.9% 247.5 ML IV SCH (16:03)
[2021-07-10] MEDS: ATORVASTATIN 40 MG TAB PO SCH (20:16)
[2021-07-11] MEDS: AMPICILLIN 2,000 MG in SODIUM CHLOR 0.9% AD-VAN 100 ML IV SCH ×6 (00:03→19:58)
[2021-07-11] MEDS: LEVOTHYROXINE SODIUM 175 MCG TABLET PO SCH (05:48)
[2021-07-11 05:54] LABS: Hematocrit (blood only) 29.7 % (42-52); Hemoglobin 9.1 g/dL (14.0-18.0); Mean Corpuscular Hemoglobin 25.6 pg (25-34); Mean Corpuscular Hgb Conc 30.6 g/dL (32-36); Mean Corpuscular Volume 83.7 fL (80-100); Mean Platelet Volume 8.5 fL (7.4-10.4); Platelet Count 485 K/uL (130-400); RDW Coefficient of Variation 17.9 % (11.5-14.5); Red Blood Count 3.55 M/uL (4.7-6.1); White Blood Count 8.05 K/uL (4.8-10.8)
[2021-07-11 06:22] LABS: BUN Creatinine Ratio 20.5 (10-20); Calcium 8.7 mg/dl (8.5-10.1); Creatinine Clr Calc Pharmacy 78.5 ml/min; Est GFR (African American) 101.5 ml/min; Est GFR (Non-African American) 87.6 ml/min
[2021-07-11] MEDS: ACETAMINOPHEN 500 MG TAB PO SCH ×3 (08:13→20:03)
[2021-07-11] MEDS: ASPIRIN 81 MG ECTAB PO SCH (08:15)
[2021-07-11] MEDS: POTASSIUM CHLORIDE CRTAB 20 MEQ TABCR PO SCH ×2 (08:15→18:03)
[2021-07-11] MEDS: CLOPIDOGREL BISULFATE 75 MG TAB PO SCH (08:16)
[2021-07-11] MEDS: CALCITRIOL 0.25 MCG CAPSULE PO SCH (08:16)
[2021-07-11] MEDS: FERROUS SULFATE 325 MG TAB PO SCH ×2 (08:17→20:03)
[2021-07-11] MEDS: FOLIC ACID 1 MG TAB PO SCH (08:17)
[2021-07-11] MEDS: METOPROLOL TARTRATE 25 MG TAB PO SCH ×2 (08:18→20:03)
[2021-07-11] MEDS: PANTOprazole 40 MG TAB PO SCH (08:20)
[2021-07-11] MEDS: HEPARIN SOD 5,000 UNIT/0.5 ML VIAL SQ SCH ×2 (08:29→20:04)
[2021-07-11] MEDS: VANCOMYCIN HCL 125 MG/2.5ML SOLN PO SCH (08:44)
[2021-07-11] MEDS: RASPBERRY SYRUP 5 ML UDP PO SCH (08:45)
[2021-07-11] MEDS: INSULIN ASPART 100 UNITS/ML 3 ML PEN SC SCH ×4 (08:51→20:53)
[2021-07-11] MEDS ORDERED: INSULIN GLARGINE SOLOSTAR 100 UNITS/ML 3 ML PEN SC ONE (09:00)
--- NOTE | 2021-07-11 10:06 | XCELERA ---
[id number]
--- NOTE | 2021-07-11 10:17 | Pharmacy Report ---
Pharmacy Glycemic Short Note 2 - Date of Service July 11, 2021 - Glycemic Short BSG Results (Last 24 hours): 07/10/21 07/10/21 07/10/21 12:18 12:19 14:57 Glucose POC Glucose 468 H* 467 H* 442 H* 07/10/21 07/10/21 07/10/21 14:59 15:58 16:00 Glucose POC Glucose 454 H* 494 H* 440 H* 07/10/21 07/10/21 07/10/21 17:12 17:14 18:02 Glucose POC Glucose 409 H* 445 H* 414 H* 07/10/21 07/10/21 07/10/21 18:04 19:04 19:06 Glucose POC Glucose 430 H* 520 H* 412 H* 07/10/21 07/10/21 07/10/21 19:08 20:00 20:01 Glucose POC Glucose 425 H* 463 H* 455 H* 07/10/21 07/10/21 07/10/21 20:03 20:58 21:00 Glucose POC Glucose 452 H* 434 H* 393 H* 07/10/21 07/10/21 07/10/21 21:02 22:01 23:00 Glucose POC Glucose 403 H* 353 H* 252 H 07/10/21 07/11/21 07/11/21 23:59 01:00 02:00 Glucose POC Glucose 184 H 146 H 143 H 07/11/21 07/11/21 07/11/21 02:58 04:33 04:47 Glucose POC Glucose 110 H 62 L* 186 H 07/11/21 07/11/21 07/11/21 05:17 05:47 06:44 Glucose 179 H POC Glucose 196 H 211 H 07/11/21 07/11/21 07/11/21 07:47 08:49 09:52 Glucose POC Glucose 166 H 156 H 190 H OUTPATIENT ANTIDIABETIC REGIMEN: * Novolog pump * Basal rate = 1.65 units/hr or ~40 units/day * CF: 30 mg/dL/unit * CR: 1 unit per 6 gm CHO consumed * HbA1c: 8.7% (07/01/21) ASSESSMENT: 07/11: * Patient with persistent hyperglycemia over the past 24 hours despite escalation of SQ insulin dosing * Based on IV insulin infusion rates, I would expect patient to require ~ 40 units BID of basal insulin. This is double his home use of basal (1.65 units/hr via pump). However, in a type 1 diabetic I am hesitant to make this aggressive of a change. Will trial Lantus 35 units BID. * Will continue to overlap IV insulin infusion + basal/bolus until BSG is consistently at goal and infusion rate is < 1.5 units/hr 07/10: * Patient continues to have fluctuating BSG control * Yesterday, he was started on IV insulin for severe hyperglycemia. BSG normalized around 1930 and continued to be at/near goal overnight. SQ insulin was overlapped with IV infusion. Patient had fasting BSG of 110 mg/dL this morning. I discontinued the IV insulin infusion (at that time it was running at 1.9 units/hr). BSG jumped to 468 mg/dL. Repeat BSG remained > 400 mg/dL after IV insulin bolus and 26 units of novolog, therefore I will restart IV insulin infusion. 07/09: * Patient received a total of 101 units of insulin yesterday (40 units basal + 61 units bolus) * This was ~40% increase from the previous day * BSGs were uncontrolled: [phone] mg/dL * Fasting BSG this AM continued to be uncontrolled at [phone] mg/dL * Unsure of cause of severe hyperglycemia in this patient. No changes to medications or stress. No snacking identified. * Increased basal by ~20%, tightened CF, and gave an 8 unit IV bolus of insulin this AM (all given at approximately 1030) * Lunch BSGs at ~1215 were: [phone] mg/dL * Decision made to start patient on insulin drip 07/08: * Ron received a total of 72 units of insulin yesterday (40 units basal + 32 units bolus) * BSGs were: [phone] mg/dL * Severe hyperglycemia this morning with three consecutive checks of [phone] mg/dL * Patient's fasting BSGs have been fairly stable. Spoke with RN who did find broken crackers in patient's bed this morning leading me to believe this was not a true fasting BSG and it is erroneous. * No changes to basal insulin. * BSGs trended upwards throughout the day yesterday likely due to insufficient correctional/prandial insulin coverage. * Will tighten correction factor and carb ratio today. PLAN FOR INPATIENT GLYCEMIC CONTROL: * Outpatient insulin pump on hold * Continue Regular Insulin Infusion * Goal range 110-180 * Do not use calculator to determine carb ratio. See set carb ratio below. * Basal insulin * Lantus 25-35 units SC BID (see eMAR for details) * Bolus insulin * NovoLog per scale ACHS * Correction factor: -- * Nutritional / Prandial insulin per carb ratio of 1 unit per 4 grams CHO consumed Pending order to discontinue IV insulin when infusion rate is < 1.5 units/hr AND BSG < 180 mg/dL x 2 * Continue current Lantus order * Novolog ACHS: CF 30, CR 4 PLAN FOR DISCHARGE: * HbA1c was 8.7% from this admission. * Less stringent HbA1C goals (such as less than 8%) may be appropriate for patients with multiple comorbidities, but 8.7% is still outside of this goal. * Patient is being discharge to rehab so would like to go on basal bolus. Patient will need insulin prescription sent to rehab. * Dosing recommendations TBD
--- NOTE | 2021-07-11 16:40 | Hospitalist Progress Note ---
Date of Service July 11, 2021 Assessment & Plan (1) Dry gangrene: Plan: - Also with Bacteremia - Enterococcus faecalis VRE - S/P BKA on 07/01 -- Revascularization January 2021 - initially successful but graft occluded and progressed to BKA - Repeat BCx on 07/04 with NGTD -- Echo normal but has prosthetic aortic valve but appears unremarkable -- ID mentioned evaluation with JUAN PABLO - BCx did clear quickly and even though TTE is not as specific for vegetation there is a low suspicion for endocarditis as no ongoing fevers/infection. Discussed with cardiology, could even consider repeat TTE to monitor for any changes from previous echo as suspicion for endocarditis is low. Could monitor closely for any worsening symptoms/infection and consider JUAN PABLO at that time -- Do have repeat BCx pending to further assess; repeat TTE unremarkable - if no growth on BCx could defer JUAN PABLO - Continue Ampicillin -- Will need peripheral line and IV Abx course - Abx until July 17 (14 day course from negative blood cultures) - Placed ID consultation - as discussed above -- Could consider empiric treatment with 6 weeks Abx with Rocephin added for coverage if wanting to cover to Endocarditis - Orthopedics following - plan to follow-up as outpatient - if still inhouse on Monday will likely see here (2) Clostridium difficile colitis: Plan: - Intermittent loose stool - no abdominal pains/fever - Completed Vancomycin 125 mg daily taper for infection - however will continue with daily dosing while on IV Abx (3) Acute hyponatremia: Plan: - STABLE - Continue to hold Thiazide diuretic (4) Folate deficiency: Plan: - Continue supplementation (5) Peripheral arterial disease: Plan: - Continue ASA/Plavix - Atorvastatin 80 mg HS (6) Diabetes type 1, controlled: Plan: - Utilizing insulin gtt and will de-escalate pending sugar response - Appreciate glycemic control - Plans to use injectables while at rehab and return to pump on discharge home - will need insulin orders given to rehab facility -- Patient has limited supplies for his insulin pump and is awaiting them to be delivered. Reports the company not having record of the request which was sent around 18 June (7) Anemia: Plan: - Acute blood loss anemia in the post operative setting - Hgb remaining in 7s with vitals stable and asymptomatic so gave 1 unit PRBC - Hgb now at 9.1 (8) DVT prophylaxis: Plan: - Heparin Plan: - Awaiting rehab determination - if approved for [facility] would need to stabilize BSGs - Needs U/S peripheral line can place if new BCx with no findings Admission and Anticipated Discharge Date Admission Date: June 30, 2021 Subjective Reports feeling well today. BSGs are improved on insulin gtt and following protocol with that. Verbalizes no new complaints Review of Systems Review of Systems: REVIEW OF SYSTEMS General/Constitutional: Denies fever/chills Cardiovascular: Denies chest pain, palpitations, edema Respiratory: Denies cough, SOB, wheezing GI: + loose stool (stable - has some formed component); Denies nausea, vomiting, abdominal pain : Denies dysuria Musculoskeletal: + phantom stump pain (controlled) Neurologic: Denies dizziness/lightheadedness Skin: Denies rash Physical Exam Physical Exam: PHYSICAL EXAM General Appearance: WDWN in NAD who is A&O x 3 HEENT: Head is normocephalic/atraumatic; Hearing grossly intact; Mucous membranes moist Neck: Supple; Trachea midline; Neg JVD Heart: RRR with murmur Lungs: CTA in all lung fuller bilaterally; Respirations unlabored; Neg accessory muscle use Abdomen: Soft, non-tender, non-distended; Positive BS x 4 quadrants Extremities: Neg cyanosis or edema; R stump with dressing in place - C/D/I Neurological: Speech clear; Gross motor/sensory function intact; Neg focal neurologic deficits Psychiatric: Appropriate mood/affect Skin: Normal Color; Warm/Dry Results & Data Results & Data ([facility]) Vital Signs (Past 12 Hours) Vital Signs Temp Pulse Resp BP Pulse Ox 07/11/21 07:30 36.6 C 67 18 117/58 L 95 PG Care Time/CCT Total # of Minutes Spent Total Time Spent with Patient: Total time spent is greater than 50% in coordination of care (as documented) at patient's floor/unit and/or counseling patient: Coding Level of Care Code 42257 Subseq Hosp Care Lvl 3 Diagnoses Dry gangrene I96 Clostridium difficile colitis A04.72 Acute hyponatremia E87.1 Folate deficiency E53.8 Peripheral arterial disease I73.9 Diabetes type 1, controlled E10.9 Anemia D64.9 DVT prophylaxis Z29.9
[2021-07-11] MEDS: INSULIN REGULAR 250 UNITS in SODIUM CHLORIDE 0.9% 247.5 ML IV SCH (18:41)
[2021-07-11] MEDS: ATORVASTATIN 40 MG TAB PO SCH (20:03)
[2021-07-11] MEDS: INSULIN GLARGINE SOLOSTAR 100 UNITS/ML 3 ML PEN SC SCH (20:52)
[2021-07-12] MEDS: AMPICILLIN 2,000 MG in SODIUM CHLOR 0.9% AD-VAN 100 ML IV SCH ×6 (00:11→20:05)
[2021-07-12] MEDS: oxyCODONE HCL IR 5 MG TAB (IMMEDIATE RELEASE) PO PRN ×2 (04:40→18:44)
[2021-07-12] MEDS: LEVOTHYROXINE SODIUM 175 MCG TABLET PO SCH (05:05)
--- NOTE | 2021-07-12 08:25 | Hospitalist Progress Note ---
Date of Service July 12, 2021 Assessment & Plan (1) Dry gangrene: Plan: - Also with Bacteremia --> Cx with Enterococcus faecalis VRE Orthopedics consulted -- to see tomorrow while inpatient S/P BKA on 07/[address] Soto -- Revascularization January 2021 - initially successful but graft occluded and progressed to BKA Repeat BCx on 07/04 with NGTD FINAL -- Echo normal but has prosthetic aortic valve but appears unremarkable -- ID mentioned evaluation with JUAN PABLO - BCx did clear quickly and even though TTE is not as specific for vegetation there is a low suspicion for endocarditis as no ongoing fevers/infection. Discussed with cardiology, could even consider repeat TTE to monitor for any changes from previous echo as suspicion for endocarditis is low. Could monitor closely for any worsening symptoms/infection and consider JUAN PABLO at that time Placed ID consultation - as discussed above --> Could consider empiric treatment with 6 weeks Abx with Rocephin added for coverage if wanting to cover to Endocarditis Continue Ampicillin -- Will need peripheral line and IV Abx course - Abx until July 17 (14 day course from negative blood cultures) -- Will place order for US guided IV for today Repeat Bcx from 07/11 remain NGTD -- repeat TTE unremarkable - if no growth on BCx could defer JUAN PABLO Afebrile, WBC wnl BSGs elevated to 400s today-- discussed with pharmacy and IV insulin given. To monitor through tonight, possible start gtt if needed but BSgs are improving No snacking and wound looks good ?? unsure why elevations, however should be noted prior admission while off his insulin gtt were very labile and hard to control. --> Awaiting supplies for his home pump and will need to use basal/bolus at rehab/d/c. Working on regimen with pharmacy. Initially thought inpatient through Monday but may have bed tomorrow at [facility] Continue to monitor (2) Clostridium difficile colitis: Plan: Intermittent loose stool - no abdominal pains/fever Completed Vancomycin 125 mg daily taper for infection - however will continue with daily dosing while on IV Abx (3) Acute hyponatremia: Plan: STABLE - Continue to hold Thiazide diuretic ? if need to resume as BPs slightly up but reasonable off of such (4) Folate deficiency: Plan: - Continue supplementation (5) Peripheral arterial disease: Plan: - Continue ASA/Plavix - Atorvastatin 80 mg HS (6) Diabetes type 1, controlled: Plan: Last A1c 8.7 - Utilizing insulin gtt and will de-escalate pending sugar response - Appreciate glycemic control - Plans to use injectables while at rehab and return to pump on discharge home - will need insulin orders given to rehab facility -- Patient has limited supplies for his insulin pump and is awaiting them to be delivered. Reports the company not having record of the request which was sent around June 21-- BGSs elevated to 400s. Adjustments per pharmacy/discussion Will need basal/bolus at discharge and hopefully BSgs improved tomorrow but will need continued monitoring/adjustments until back on his own pump which provides better control typically (7) Anemia: Plan: - Acute blood loss anemia in the post operative setting - Hgb remaining in 7s with vitals stable and asymptomatic so gave 1 unit PRBC - Hgb continues to be stable on repeat (8) DVT prophylaxis: Plan: - Heparin Plan: [facility] to have bed tomorrow Will need better control of BSGs as above Needs U/S peripheral line can place if new BCx with no findings --> ordered for today given repeat BCx remain NGTD IF BSGs improved/controlled and patient stable, plans for d/c tomorrow to [facility] Admission and Anticipated Discharge Date Admission Date: June 30, 2021 Subjective Patient evaluated this afternoon. Doing well. Eating/drinking. Moving bowels -- no worsening diarrhea and remains on once daily vancomycin given prior infxn. Elevated blood sugars this afternoon-- no snacking reported. Asymptomatic from such. Is a type I DM and previous issues with same off his home pump --> he is awaiting new supplies but we did discuss basal/bolus at rehab until able to convert back to his home pump which usually keeps him fairly well controlled. Plans for possible rehab Monday but dealing with insurance issues. No fever, chills, chest pain, shortness of breath, abdominal pain, nausea reported. Review of Systems Review of Systems: All systems reviewed & are unremarkable except as noted in HPI & below Physical Exam Physical Exam: PHYSICAL EXAM General Appearance: WDWN in NAD who is A&O x 3 HEENT: Head is normocephalic/atraumatic; Hearing grossly intact; Mucous membranes moist Neck: Supple; Trachea midline; Neg JVD Heart: RRR with murmur Lungs: CTA in all lung fuller bilaterally; Respirations unlabored; Neg accessory muscle use Abdomen: Soft, non-tender, non-distended; Positive BS x 4 quadrants Extremities: Neg cyanosis or edema; R stump with dressing in place - C/D/I Neurological: Speech clear; Gross motor/sensory function intact; Neg focal neurologic deficits Psychiatric: Appropriate mood/affect Skin: Normal Color; Warm/Dry Results & Data Results & Data ([facility]) Vital Signs (Past 12 Hours) Vital Signs Temp Pulse Resp BP Pulse Ox 07/12/21 07:15 36.6 C 72 19 154/83 H 97 07/11/21 22:29 36.5 C 65 18 122/64 97 Laboratory Results 07/12/21 07/12/21 07/12/21 Range/Units 15:04 15:03 14:08 WBC (4.8-10.8) K/uL RBC (4.7-6.1) M/uL Hgb (14.0-18.0) g/dL Hct (42-52) % MCV (80-100) fL MCH (25-34) pg MCHC (32-36) g/dL RDW Std Deviation (36.4-46.3) fL RDW Coeff of Chan (11.5-14.5) % Plt Count (130-400) K/uL MPV (7.4-10.4) fL Sodium (136-145) mmol/L Potassium (3.5-5.1) mmol/L Chloride (98-107) mmol/L Carbon Dioxide (21-32) mmol/L Anion Gap (3-11) BUN (7-18) mg/dl Creatinine (0.6-1.4) mg/dl Est Cr Clr Drug Dosing ml/min Est GFR ( Amer) ml/min Est GFR (Non-Af Amer) ml/min BUN/Creatinine Ratio (10-20) Glucose (70-99) mg/dl POC Glucose 272 H 289 H 339 H* (70-99) mg/dl Calcium (8.5-10.1) mg/dl Magnesium (1.8-2.4) mg/dl Total Bilirubin (0.2-1) mg/dl AST (15-37) U/L ALT (12-78) U/L Alkaline Phosphatase (45-117) U/L Total Protein (6.4-8.2) gm/dl Albumin (3.4-5.0) gm/dl Globulin (2.5-4.0) gm/dl Albumin/Globulin Ratio (0.9-2) Beta-Hydroxybutyric Acd (0.2-2.81) mg/dl 07/12/21 07/12/21 07/12/21 Range/Units 14:07 12:14 12:12 WBC (4.8-10.8) K/uL RBC (4.7-6.1) M/uL Hgb (14.0-18.0) g/dL Hct (42-52) % MCV (80-100) fL MCH (25-34) pg MCHC (32-36) g/dL RDW Std Deviation (36.4-46.3) fL RDW Coeff of Chan (11.5-14.5) % Plt Count (130-400) K/uL MPV (7.4-10.4) fL Sodium (136-145) mmol/L Potassium (3.5-5.1) mmol/L Chloride (98-107) mmol/L Carbon Dioxide (21-32) mmol/L Anion Gap (3-11) BUN (7-18) mg/dl Creatinine (0.6-1.4) mg/dl Est Cr Clr Drug Dosing ml/min Est GFR ( Amer) ml/min Est GFR (Non-Af Amer) ml/min BUN/Creatinine Ratio (10-20) Glucose (70-99) mg/dl POC Glucose 302 H* 436 H* 453 H* (70-99) mg/dl Calcium (8.5-10.1) mg/dl Magnesium (1.8-2.4) mg/dl Total Bilirubin (0.2-1) mg/dl AST (15-37) U/L ALT (12-78) U/L Alkaline Phosphatase (45-117) U/L Total Protein (6.4-8.2) gm/dl Albumin (3.4-5.0) gm/dl Globulin (2.5-4.0) gm/dl Albumin/Globulin Ratio (0.9-2) Beta-Hydroxybutyric Acd (0.2-2.81) mg/dl 1107/12/21 07/12/21 Range/Units 08:27 08:27 08:09 WBC 9.16 (4.8-10.8) K/uL RBC 3.68 L (4.7-6.1) M/uL Hgb 9.8 L (14.0-18.0) g/dL Hct 31.5 L (42-52) % MCV 85.6 (80-100) fL MCH 26.6 (25-34) pg MCHC 31.1 L (32-36) g/dL RDW Std Deviation 54.3 H (36.4-46.3) fL RDW Coeff of Chan 18.9 H (11.5-14.5) % Plt Count 444 H (130-400) K/uL MPV 8.2 (7.4-10.4) fL Sodium 135 L (136-145) mmol/L Potassium 4.3 (3.5-5.1) mmol/L Chloride 100 (98-107) mmol/L Carbon Dioxide 27 (21-32) mmol/L Anion Gap 8.0 (3-11) BUN 15 (7-18) mg/dl Creatinine 0.80 (0.6-1.4) mg/dl Est Cr Clr Drug Dosing 90.3 ml/min Est GFR ( Amer) 109.4 ml/min Est GFR (Non-Af Amer) 94.4 ml/min BUN/Creatinine Ratio 18.9 (10-20) Glucose 340 H* (70-99) mg/dl POC Glucose 328 H* (70-99) mg/dl Calcium 8.8 (8.5-10.1) mg/dl Magnesium 2.0 (1.8-2.4) mg/dl Total Bilirubin 0.3 (0.2-1) mg/dl AST 52 H (15-37) U/L ALT 42 (12-78) U/L Alkaline Phosphatase 225 H (45-117) U/L Total Protein 7.1 (6.4-8.2) gm/dl Albumin 1.8 L (3.4-5.0) gm/dl Globulin 5.3 H (2.5-4.0) gm/dl Albumin/Globulin Ratio 0.3 L (0.9-2) Beta-Hydroxybutyric Acd 0.79 (0.2-2.81) mg/dl 07/12/21 07/11/21 07/11/21 Range/Units 08:07 20:47 17:35 WBC (4.8-10.8) K/uL RBC (4.7-6.1) M/uL Hgb (14.0-18.0) g/dL Hct (42-52) % MCV (80-100) fL MCH (25-34) pg MCHC (32-36) g/dL RDW Std Deviation (36.4-46.3) fL RDW Coeff of Chan (11.5-14.5) % Plt Count (130-400) K/uL MPV (7.4-10.4) fL Sodium (136-145) mmol/L Potassium (3.5-5.1) mmol/L Chloride (98-107) mmol/L Carbon Dioxide (21-32) mmol/L Anion Gap (3-11) BUN (7-18) mg/dl Creatinine (0.6-1.4) mg/dl Est Cr Clr Drug Dosing ml/min Est GFR ( Amer) ml/min Est GFR (Non-Af Amer) ml/min BUN/Creatinine Ratio (10-20) Glucose (70-99) mg/dl POC Glucose 324 H* 186 H 152 H (70-99) mg/dl Calcium (8.5-10.1) mg/dl Magnesium (1.8-2.4) mg/dl Total Bilirubin (0.2-1) mg/dl AST (15-37) U/L ALT (12-78) U/L Alkaline Phosphatase (45-117) U/L Total Protein (6.4-8.2) gm/dl Albumin (3.4-5.0) gm/dl Globulin (2.5-4.0) gm/dl Albumin/Globulin Ratio (0.9-2) Beta-Hydroxybutyric Acd (0.2-2.81) mg/dl 07/11/21 Range/Units 16:52 WBC (4.8-10.8) K/uL RBC (4.7-6.1) M/uL Hgb (14.0-18.0) g/dL Hct (42-52) % MCV (80-100) fL MCH (25-34) pg MCHC (32-36) g/dL RDW Std Deviation (36.4-46.3) fL RDW Coeff of Chan (11.5-14.5) % Plt Count (130-400) K/uL MPV (7.4-10.4) fL Sodium (136-145) mmol/L Potassium (3.5-5.1) mmol/L Chloride (98-107) mmol/L Carbon Dioxide (21-32) mmol/L Anion Gap (3-11) BUN (7-18) mg/dl Creatinine (0.6-1.4) mg/dl Est Cr Clr Drug Dosing ml/min Est GFR ( Amer) ml/min Est GFR (Non-Af Amer) ml/min BUN/Creatinine Ratio (10-20) Glucose (70-99) mg/dl POC Glucose 152 H (70-99) mg/dl Calcium (8.5-10.1) mg/dl Magnesium (1.8-2.4) mg/dl Total Bilirubin (0.2-1) mg/dl AST (15-37) U/L ALT (12-78) U/L Alkaline Phosphatase (45-117) U/L Total Protein (6.4-8.2) gm/dl Albumin (3.4-5.0) gm/dl Globulin (2.5-4.0) gm/dl Albumin/Globulin Ratio (0.9-2) Beta-Hydroxybutyric Acd (0.2-2.81) mg/dl PG Care Time/CCT Total # of Minutes Spent Total Time Spent with Patient: Total time spent is greater than 50% in coordination of care (as documented) at patient's floor/unit and/or counseling patient: Coding Level of Care Code 48289 Subseq Hosp Care Lvl 3 Diagnoses Dry gangrene I96 Clostridium difficile colitis A04.72 Acute hyponatremia E87.1 Folate deficiency E53.8 Peripheral arterial disease I73.9 Diabetes type 1, controlled E10.9 Anemia D64.9 DVT prophylaxis Z29.9
[2021-07-12 08:40] LABS: Hematocrit (blood only) 31.5 % (42-52); Hemoglobin 9.8 g/dL (14.0-18.0); Mean Corpuscular Hemoglobin 26.6 pg (25-34); Mean Corpuscular Hgb Conc 31.1 g/dL (32-36); Mean Corpuscular Volume 85.6 fL (80-100); Mean Platelet Volume 8.2 fL (7.4-10.4); Platelet Count 444 K/uL (130-400); RDW Coefficient of Variation 18.9 % (11.5-14.5); RDW Standard Deviation 54.3 fL (36.4-46.3); Red Blood Count 3.68 M/uL (4.7-6.1); White Blood Count 9.16 K/uL (4.8-10.8)
[2021-07-12] MEDS: METOPROLOL TARTRATE 25 MG TAB PO SCH ×2 (09:03→20:18)
[2021-07-12] MEDS: CALCITRIOL 0.25 MCG CAPSULE PO SCH (09:04)
[2021-07-12] MEDS: FERROUS SULFATE 325 MG TAB PO SCH ×2 (09:04→20:18)
[2021-07-12] MEDS: POTASSIUM CHLORIDE CRTAB 20 MEQ TABCR PO SCH ×2 (09:04→16:49)
[2021-07-12] MEDS: FOLIC ACID 1 MG TAB PO SCH (09:04)
[2021-07-12] MEDS: PANTOprazole 40 MG TAB PO SCH (09:04)
[2021-07-12] MEDS: ASPIRIN 81 MG ECTAB PO SCH (09:04)
[2021-07-12] MEDS: ACETAMINOPHEN 500 MG TAB PO SCH ×3 (09:04→20:18)
[2021-07-12] MEDS: CLOPIDOGREL BISULFATE 75 MG TAB PO SCH (09:04)
[2021-07-12] MEDS: RASPBERRY SYRUP 5 ML UDP PO SCH (09:05)
[2021-07-12] MEDS: VANCOMYCIN HCL 125 MG/2.5ML SOLN PO SCH (09:05)
[2021-07-12] MEDS: HEPARIN SOD 5,000 UNIT/0.5 ML VIAL SQ SCH ×2 (09:13→20:19)
[2021-07-12] MEDS: INSULIN GLARGINE SOLOSTAR 100 UNITS/ML 3 ML PEN SC SCH (09:26)
[2021-07-12] MEDS: INSULIN ASPART 100 UNITS/ML 3 ML PEN SC SCH ×5 (09:27→23:45)
[2021-07-12 09:33] LABS: Albumin Globulin Ratio 0.3 (0.9-2); Albumin Level 1.8 gm/dl (3.4-5.0); BUN Creatinine Ratio 18.9 (10-20); Bilirubin,Total 0.3 mg/dl (0.2-1); Calcium 8.8 mg/dl (8.5-10.1); Creatinine Clr Calc Pharmacy 90.3 ml/min; Est GFR (African American) 109.4 ml/min; Est GFR (Non-African American) 94.4 ml/min; Globulin 5.3 gm/dl (2.5-4.0); Potassium 4.3 mmol/L (3.5-5.1); Total Protein 7.1 gm/dl (6.4-8.2)
[2021-07-12 09:46] LABS: Beta-Hydroxybutyrate 0.79 mg/dl (0.2-2.81)
[2021-07-12] MEDS ORDERED: INSULIN HUMAN REGULAR PER UNIT 8 UNITS in SYRINGE 7.92 ML IV ONE (12:30)
--- NOTE | 2021-07-12 13:48 | Pharmacy Report ---
Pharmacy Glycemic Short Note 2 - Date of Service July 12, 2021 - Glycemic Short BSG Results (Last 24 hours): 07/11/21 07/11/21 07/11/21 13:56 14:55 16:52 Glucose POC Glucose 236 H 187 H 152 H 07/11/21 07/11/21 07/12/21 17:35 20:47 08:07 Glucose POC Glucose 152 H 186 H 324 H* 07/12/21 07/12/21 07/12/21 08:09 08:27 12:12 Glucose 340 H* POC Glucose 328 H* 453 H* 07/12/21 12:14 Glucose POC Glucose 436 H* OUTPATIENT ANTIDIABETIC REGIMEN: * Novolog pump * Basal rate = 1.65 units/hr or ~40 units/day * CF: 30 mg/dL/unit * CR: 1 unit per 6 gm CHO consumed * HbA1c: 8.7% (07/01/21) ASSESSMENT: 07/12: * Patient received >100 units of insulin yesterday, plus insulin drip * Drip d/c at dinner time yesterday, basal insulin was increased ~40% from home insulin pump settings over last 24 hrs * BSG this AM elevated at 328 mg/dL - Went with higher basal dose this AM * Lunch BSG still trending upward - given 8 units IV, will recheck in 2 hours to ensure trending down before starting insulin drip again * BSGs have been unpredictable since 07/09 and patient requiring significantly more insulin since then - unclear if related to infection?? 07/11: * Patient with persistent hyperglycemia over the past 24 hours despite escalation of SQ insulin dosing * Based on IV insulin infusion rates, I would expect patient to require ~ 40 units BID of basal insulin. This is double his home use of basal (1.65 units/hr via pump). However, in a type 1 diabetic I am hesitant to make this aggressive of a change. Will trial Lantus 35 units BID. * Will continue to overlap IV insulin infusion + basal/bolus until BSG is consistently at goal and infusion rate is < 1.5 units/hr 07/10: * Patient continues to have fluctuating BSG control * Yesterday, he was started on IV insulin for severe hyperglycemia. BSG normalized around 1930 and continued to be at/near goal overnight. SQ insulin was overlapped with IV infusion. Patient had fasting BSG of 110 mg/dL this morning. I discontinued the IV insulin infusion (at that time it was running at 1.9 units/hr). BSG jumped to 468 mg/dL. Repeat BSG remained > 400 mg/dL after IV insulin bolus and 26 units of novolog, therefore I will restart IV insulin infusion. 07/09: * Patient received a total of 101 units of insulin yesterday (40 units basal + 61 units bolus) * This was ~40% increase from the previous day * BSGs were uncontrolled: [phone] mg/dL * Fasting BSG this AM continued to be uncontrolled at [phone] mg/dL * Unsure of cause of severe hyperglycemia in this patient. No changes to medications or stress. No snacking identified. * Increased basal by ~20%, tightened CF, and gave an 8 unit IV bolus of insulin this AM (all given at approximately 1030) * Lunch BSGs at ~1215 were: [phone] mg/dL * Decision made to start patient on insulin drip 07/08: * Ron received a total of 72 units of insulin yesterday (40 units basal + 32 units bolus) * BSGs were: [phone] mg/dL * Severe hyperglycemia this morning with three consecutive checks of [phone] mg/dL * Patient's fasting BSGs have been fairly stable. Spoke with RN who did find broken crackers in patient's bed this morning leading me to believe this was not a true fasting BSG and it is erroneous. * No changes to basal insulin. * BSGs trended upwards throughout the day yesterday likely due to insufficient correctional/prandial insulin coverage. * Will tighten correction factor and carb ratio today. PLAN FOR INPATIENT GLYCEMIC CONTROL: * Outpatient insulin pump on hold * Basal insulin - increase * Lantus 30-40 units SC BID (see eMAR for details) * Bolus insulin * NovoLog per scale ACHS PLAN FOR DISCHARGE: * HbA1c was 8.7% from this admission. * Less stringent HbA1C goals (such as less than 8%) may be appropriate for patients with multiple comorbidities, but 8.7% is still outside of this goal. * Patient is being discharge to rehab so would like to go on basal bolus. Patient will need insulin prescription sent to rehab. * Dosing recommendations TBD
[2021-07-12] MEDS ORDERED: INSULIN GLARGINE SOLOSTAR 100 UNITS/ML 3 ML PEN SC ONE (17:45)
[2021-07-12] MEDS: ATORVASTATIN 40 MG TAB PO SCH (20:18)
[2021-07-13] MEDS: INSULIN ASPART 100 UNITS/ML 3 ML PEN SC SCH ×6 (00:09→20:33)
[2021-07-13] MEDS: AMPICILLIN 2,000 MG in SODIUM CHLOR 0.9% AD-VAN 100 ML IV SCH ×7 (00:22→23:56)
[2021-07-13] MEDS: LEVOTHYROXINE SODIUM 175 MCG TABLET PO SCH (05:57)
[2021-07-13 07:57] LABS: Basophils # (auto) 0.06 K/uL (0-0.2); Basophils % (auto) 0.6 %; Eosinophils # (auto) 0.25 K/uL (0-0.5); Eosinophils % (auto) 2.6 %; Hematocrit (blood only) 30.9 % (42-52); Hemoglobin 9.5 g/dL (14.0-18.0); Immature Granulocytes # (auto) 0.06 K/uL (0.00-0.02); Immature Granulocytes % (auto) 0.6 %; Lymphocytes # (auto) 1.47 K/uL (1.2-3.4); Lymphocytes % (auto) 15.2 %; Mean Corpuscular Hemoglobin 26.5 pg (25-34); Mean Corpuscular Hgb Conc 30.7 g/dL (32-36); Mean Corpuscular Volume 86.1 fL (80-100); Mean Platelet Volume 8.5 fL (7.4-10.4); Monocytes # (auto) 1.01 K/uL (0.11-0.59); Monocytes % (auto) 10.5 %; Neutrophils % (auto) 70.5 %; Platelet Count 478 K/uL (130-400); RDW Coefficient of Variation 19.6 % (11.5-14.5); RDW Standard Deviation 58.1 fL (36.4-46.3); Red Blood Count 3.59 M/uL (4.7-6.1); White Blood Count 9.65 K/uL (4.8-10.8)
--- NOTE | 2021-07-13 08:12 | Hospitalist Progress Note ---
Date of Service July 13, 2021 Assessment & Plan (1) Dry gangrene: Plan: - Also with Bacteremia --> Cx with Enterococcus faecalis VRE Orthopedics consulted -- to see tomorrow while inpatient S/P BKA on 07/[address] Soto -- Revascularization January 2021 - initially successful but graft occluded and progressed to BKA Repeat BCx on 07/04 with NGTD FINAL -- Echo normal but has prosthetic aortic valve but appears unremarkable -- ID mentioned evaluation with JUAN PABLO - BCx did clear quickly and even though TTE is not as specific for vegetation there is a low suspicion for endocarditis as no ongoing fevers/infection. Discussed with cardiology, could even consider repeat TTE to monitor for any changes from previous echo as suspicion for endocarditis is low. Could monitor closely for any worsening symptoms/infection and consider JUAN PABLO at that time Placed ID consultation - as discussed above --> Could consider empiric treatment with 6 weeks Abx with Rocephin added for coverage if wanting to cover to Endocarditis Continue Ampicillin -- Will need peripheral line and IV Abx course - Abx until July 17 (14 day course from negative blood cultures) -- Will place order for US guided IV for today Repeat Bcx from 07/11 remain NGTD -- repeat TTE unremarkable - if no growth on BCx could defer JUAN PABLO Afebrile, WBC wnl BSGs elevated to 400s today-- discussed with pharmacy and IV insulin given. To monitor through tonight, possible start gtt if needed but BSgs are improving No snacking and wound looks good ?? unsure why elevations, however should be noted prior admission while off his insulin gtt were very labile and hard to control. --> Awaiting supplies for his home pump and will need to use basal/bolus at rehab/d/c. Working on regimen with pharmacy for sliding scale as has had much higher needs than outpatient regimen Bed available at [facility] today but will monitor sugars and labs in AM per patient wanting to ensure no issues prior to d/c. Reasonable and will plan for d/c tomorrow if continues to be stable For Insulin at d/c while awaiting supplies: * Could consider Lantus 35-40 units BID (35 units for BSG less than 200 mg/dL, 40 units for BSG 200 mg/dL or greater) * Novolog - Correction Factor: 20 Carb Ratio: 4 * Not yet at steady state with basal dosing. Will need close follow up outpatient as regimen will need adjusted. * This regimen is a much higher dosing regimen then pump settings. Please have patient check BSGs ACHS with also a possible overnight check the next couple of days to ensure BSGs stable Continue to monitor (2) Clostridium difficile colitis: Plan: Intermittent loose stool - no abdominal pains/fever Completed Vancomycin 125 mg daily taper for infection - however will continue with daily dosing while on IV Abx and with diarrhea (3) Acute hyponatremia: Plan: STABLE - Continue to hold Thiazide diuretic--> ? if need to resume as BPs slightly up but reasonable off of such (4) Folate deficiency: Plan: - Continue supplementation (5) Peripheral arterial disease: Plan: - Continue ASA/Plavix - Atorvastatin 80 mg HS (6) Diabetes type 1, controlled: Plan: Last A1c 8.7 - Utilizing insulin gtt and will de-escalate pending sugar response - Appreciate glycemic control - Plans to use injectables while at rehab and return to pump on discharge home - will need insulin orders given to rehab facility -- Patient has limited supplies for his insulin pump and is awaiting them to be delivered. Reports the company not having record of the request which was sent around June 21-- BGSs elevated to 400s afternoon 07/12 and additional 40u given. Discussed with pharmacy and adjustments made --> Blood sugars much better today and will need to continue to monitor Plans for basal/bolis and CR/CF at [facility] as above if continues to be stable. Otherwise will need further adjustments until back on his own pump which provides better control typically (7) Anemia: Plan: - Acute blood loss anemia in the post operative setting - Hgb remained in 7s with vitals stable and asymptomatic so gave 1 unit PRBC - Hgb continues to be stable on repeat, currently 9.5 (8) DVT prophylaxis: Plan: - Heparin Plan: [facility] able to take tomorrow if blood sugars stable Peripheral IV placed on 07/12 and will be continued on Ampicillin IV through Jul 17 Consider repeat TTE Admission and Anticipated Discharge Date Admission Date: June 30, 2021 Subjective Patient evaluated this afternoon. Sugars elevated last evening and received 40u lantus with improvement. Sugars better and further adjusments made after discussion with pharmacist for at [facility] until he is able to obtian his supplies-- he states he will be calling again as they never called him back. Having some anal discomfort and usually uses something topical at home. From continued diarrhea but not worse than prior. Will order Anusol to see if any benefit. [facility] able to take today but patient on fence with blood sugars and would like to ensure improved in AM and labs stable but will plan for discharge tomorrow on the Ampicillin. If any fevers or elevations in WBC will need to consider adding Rocephin as outlined by ID if concerns for endocarditis. No fever, chills, chest pain, shortness of breath, abdominal pain ,nausea or vomiting. Doing well with transfers ad therapy. Plans for d/c in AM Review of Systems Review of Systems: All systems reviewed & are unremarkable except as noted in HPI & below Physical Exam Physical Exam: PHYSICAL EXAM General Appearance: WDWN in NAD who is A&O x 3 HEENT: Head is normocephalic/atraumatic; Hearing grossly intact; Mucous membranes moist Neck: Supple; Trachea midline; Neg JVD Heart: RRR with murmur Lungs: CTA in all lung fuller bilaterally; Respirations unlabored; Neg accessory muscle use Abdomen: Soft, non-tender, non-distended; Positive BS x 4 quadrants Extremities: Neg cyanosis or edema; R stump with dressing in place - C/D/I (changed by ortho today) Neurological: Speech clear; Gross motor/sensory function intact; Neg focal neurologic deficits Psychiatric: Appropriate mood/affect Skin: Normal Color; Warm/Dry Results & Data Results & Data ([facility]) Vital Signs (Past 12 Hours) Vital Signs Temp Pulse Resp BP Pulse Ox 07/13/21 07:45 36.9 C 70 18 123/71 94 07/12/21 23:46 36.5 C 70 18 129/67 95 Laboratory Results 07/13/21 07/13/21 07/13/21 Range/Units 17:12 16:42 16:16 WBC (4.8-10.8) K/uL RBC (4.7-6.1) M/uL Hgb (14.0-18.0) g/dL Hct (42-52) % MCV (80-100) fL MCH (25-34) pg MCHC (32-36) g/dL RDW Std Deviation (36.4-46.3) fL RDW Coeff of Chan (11.5-14.5) % Plt Count (130-400) K/uL MPV (7.4-10.4) fL Immature Gran % (Auto) % Neut % (Auto) % Lymph % (Auto) % [place] % (Auto) % Eos % (Auto) % Baso % (Auto) % Neut # (Auto) (1.4-6.5) K/uL Lymph # (Auto) (1.2-3.4) K/uL [place] # (Auto) (0.11-0.59) K/uL Eos # (Auto) (0-0.5) K/uL Baso # (Auto) (0-0.2) K/uL Immature Gran # (Auto) (0.00-0.02) K/uL Sodium (136-145) mmol/L Potassium (3.5-5.1) mmol/L Chloride (98-107) mmol/L Carbon Dioxide (21-32) mmol/L Anion Gap (3-11) BUN (7-18) mg/dl Creatinine (0.6-1.4) mg/dl Est Cr Clr Drug Dosing ml/min Est GFR ( Amer) ml/min Est GFR (Non-Af Amer) ml/min BUN/Creatinine Ratio (10-20) Glucose (70-99) mg/dl POC Glucose 79 52 L* 63 L* (70-99) mg/dl Calcium (8.5-10.1) mg/dl Total Bilirubin (0.2-1) mg/dl Direct Bilirubin (0-0.2) mg/dl AST (15-37) U/L ALT (12-78) U/L Alkaline Phosphatase (45-117) U/L Total Protein (6.4-8.2) gm/dl Albumin (3.4-5.0) gm/dl 07/13/21 07/13/21 07/13/21 Range/Units 15:47 12:20 08:20 WBC (4.8-10.8) K/uL RBC (4.7-6.1) M/uL Hgb (14.0-18.0) g/dL Hct (42-52) % MCV (80-100) fL MCH (25-34) pg MCHC (32-36) g/dL RDW Std Deviation (36.4-46.3) fL RDW Coeff of Chan (11.5-14.5) % Plt Count (130-400) K/uL MPV (7.4-10.4) fL Immature Gran % (Auto) % Neut % (Auto) % Lymph % (Auto) % [place] % (Auto) % Eos % (Auto) % Baso % (Auto) % Neut # (Auto) (1.4-6.5) K/uL Lymph # (Auto) (1.2-3.4) K/uL [place] # (Auto) (0.11-0.59) K/uL Eos # (Auto) (0-0.5) K/uL Baso # (Auto) (0-0.2) K/uL Immature Gran # (Auto) (0.00-0.02) K/uL Sodium (136-145) mmol/L Potassium (3.5-5.1) mmol/L Chloride (98-107) mmol/L Carbon Dioxide (21-32) mmol/L Anion Gap (3-11) BUN (7-18) mg/dl Creatinine (0.6-1.4) mg/dl Est Cr Clr Drug Dosing ml/min Est GFR ( Amer) ml/min Est GFR (Non-Af Amer) ml/min BUN/Creatinine Ratio (10-20) Glucose (70-99) mg/dl POC Glucose 76 227 H 208 H (70-99) mg/dl Calcium (8.5-10.1) mg/dl Total Bilirubin (0.2-1) mg/dl Direct Bilirubin (0-0.2) mg/dl AST (15-37) U/L ALT (12-78) U/L Alkaline Phosphatase (45-117) U/L Total Protein (6.4-8.2) gm/dl Albumin (3.4-5.0) gm/dl 07/13/21 07/13/21 07/13/21 Range/Units 07:38 07:38 04:00 WBC 9.65 (4.8-10.8) K/uL RBC 3.59 L (4.7-6.1) M/uL Hgb 9.5 L (14.0-18.0) g/dL Hct 30.9 L (42-52) % MCV 86.1 (80-100) fL MCH 26.5 (25-34) pg MCHC 30.7 L (32-36) g/dL RDW Std Deviation 58.1 H (36.4-46.3) fL RDW Coeff of Chan 19.6 H (11.5-14.5) % Plt Count 478 H (130-400) K/uL MPV 8.5 (7.4-10.4) fL Immature Gran % (Auto) 0.6 % Neut % (Auto) 70.5 % Lymph % (Auto) 15.2 % [place] % (Auto) 10.5 % Eos % (Auto) 2.6 % Baso % (Auto) 0.6 % Neut # (Auto) 6.80 H (1.4-6.5) K/uL Lymph # (Auto) 1.47 (1.2-3.4) K/uL [place] # (Auto) 1.01 H (0.11-0.59) K/uL Eos # (Auto) 0.25 (0-0.5) K/uL Baso # (Auto) 0.06 (0-0.2) K/uL Immature Gran # (Auto) 0.06 H (0.00-0.02) K/uL Sodium 137 (136-145) mmol/L Potassium 4.5 (3.5-5.1) mmol/L Chloride 104 (98-107) mmol/L Carbon Dioxide 26 (21-32) mmol/L Anion Gap 7.0 (3-11) BUN 15 (7-18) mg/dl Creatinine 0.78 (0.6-1.4) mg/dl Est Cr Clr Drug Dosing 92.6 ml/min Est GFR ( Amer) 110.6 ml/min Est GFR (Non-Af Amer) 95.4 ml/min BUN/Creatinine Ratio 19.4 (10-20) Glucose 207 H (70-99) mg/dl POC Glucose 130 H (70-99) mg/dl Calcium 9.2 (8.5-10.1) mg/dl Total Bilirubin 0.4 (0.2-1) mg/dl Direct Bilirubin < 0.1 (0-0.2) mg/dl AST 37 (15-37) U/L ALT 37 (12-78) U/L Alkaline Phosphatase 203 H (45-117) U/L Total Protein 6.9 (6.4-8.2) gm/dl Albumin 1.9 L (3.4-5.0) gm/dl 07/13/21 07/12/21 07/12/21 Range/Units 00:06 21:49 21:47 WBC (4.8-10.8) K/uL RBC (4.7-6.1) M/uL Hgb (14.0-18.0) g/dL Hct (42-52) % MCV (80-100) fL MCH (25-34) pg MCHC (32-36) g/dL RDW Std Deviation (36.4-46.3) fL RDW Coeff of Chan (11.5-14.5) % Plt Count (130-400) K/uL MPV (7.4-10.4) fL Immature Gran % (Auto) % Neut % (Auto) % Lymph % (Auto) % [place] % (Auto) % Eos % (Auto) % Baso % (Auto) % Neut # (Auto) (1.4-6.5) K/uL Lymph # (Auto) (1.2-3.4) K/uL [place] # (Auto) (0.11-0.59) K/uL Eos # (Auto) (0-0.5) K/uL Baso # (Auto) (0-0.2) K/uL Immature Gran # (Auto) (0.00-0.02) K/uL Sodium (136-145) mmol/L Potassium (3.5-5.1) mmol/L Chloride (98-107) mmol/L Carbon Dioxide (21-32) mmol/L Anion Gap (3-11) BUN (7-18) mg/dl Creatinine (0.6-1.4) mg/dl Est Cr Clr Drug Dosing ml/min Est GFR ( Amer) ml/min Est GFR (Non-Af Amer) ml/min BUN/Creatinine Ratio (10-20) Glucose (70-99) mg/dl POC Glucose 226 H 282 H 316 H* (70-99) mg/dl Calcium (8.5-10.1) mg/dl Total Bilirubin (0.2-1) mg/dl Direct Bilirubin (0-0.2) mg/dl AST (15-37) U/L ALT (12-78) U/L Alkaline Phosphatase (45-117) U/L Total Protein (6.4-8.2) gm/dl Albumin (3.4-5.0) gm/dl 07/12/21 Range/Units 20:26 WBC (4.8-10.8) K/uL RBC (4.7-6.1) M/uL Hgb (14.0-18.0) g/dL Hct (42-52) % MCV (80-100) fL MCH (25-34) pg MCHC (32-36) g/dL RDW Std Deviation (36.4-46.3) fL RDW Coeff of Chan (11.5-14.5) % Plt Count (130-400) K/uL MPV (7.4-10.4) fL Immature Gran % (Auto) % Neut % (Auto) % Lymph % (Auto) % [place] % (Auto) % Eos % (Auto) % Baso % (Auto) % Neut # (Auto) (1.4-6.5) K/uL Lymph # (Auto) (1.2-3.4) K/uL [place] # (Auto) (0.11-0.59) K/uL Eos # (Auto) (0-0.5) K/uL Baso # (Auto) (0-0.2) K/uL Immature Gran # (Auto) (0.00-0.02) K/uL Sodium (136-145) mmol/L Potassium (3.5-5.1) mmol/L Chloride (98-107) mmol/L Carbon Dioxide (21-32) mmol/L Anion Gap (3-11) BUN (7-18) mg/dl Creatinine (0.6-1.4) mg/dl Est Cr Clr Drug Dosing ml/min Est GFR ( Amer) ml/min Est GFR (Non-Af Amer) ml/min BUN/Creatinine Ratio (10-20) Glucose (70-99) mg/dl POC Glucose 278 H (70-99) mg/dl Calcium (8.5-10.1) mg/dl Total Bilirubin (0.2-1) mg/dl Direct Bilirubin (0-0.2) mg/dl AST (15-37) U/L ALT (12-78) U/L Alkaline Phosphatase (45-117) U/L Total Protein (6.4-8.2) gm/dl Albumin (3.4-5.0) gm/dl PG Care Time/CCT Total # of Minutes Spent Total Time Spent with Patient: Total time spent is greater than 50% in coordination of care (as documented) at patient's floor/unit and/or counseling patient: Coding Level of Care Code 30682 Subseq Hosp Care Lvl 3 Diagnoses Dry gangrene I96 Clostridium difficile colitis A04.72 Acute hyponatremia E87.1 Folate deficiency E53.8 Peripheral arterial disease I73.9 Diabetes type 1, controlled E10.9 Anemia D64.9 DVT prophylaxis Z29.9
[2021-07-13 08:47] LABS: Alanine Aminotransferase 37 U/L (12-78); Albumin Level 1.9 gm/dl (3.4-5.0); Aspartate Aminotransferase 37 U/L (15-37); BUN Creatinine Ratio 19.4 (10-20); Bilirubin Direct < 0.1 mg/dl (0-0.2); Blood Urea Nitrogen 15 mg/dl (7-18); Calcium 9.2 mg/dl (8.5-10.1); Carbon Dioxide 26 mmol/L (21-32); Chloride 104 mmol/L (98-107); Creatinine Clr Calc Pharmacy 92.6 ml/min; Est GFR (African American) 110.6 ml/min; Est GFR (Non-African American) 95.4 ml/min; Glucose 207 mg/dl (70-99); Potassium 4.5 mmol/L (3.5-5.1); Sodium 137 mmol/L (136-145)
[2021-07-13 08:50] LABS: Alkaline Phosphatase 203 U/L (45-117); Total Protein 6.9 gm/dl (6.4-8.2)
[2021-07-13 08:56] LABS: Bilirubin,Total 0.4 mg/dl (0.2-1)
[2021-07-13] MEDS ORDERED: INSULIN GLARGINE SOLOSTAR 100 UNITS/ML 3 ML PEN SC SCH (09:00)
[2021-07-13] MEDS: VANCOMYCIN HCL 125 MG/2.5ML SOLN PO SCH (09:28)
[2021-07-13] MEDS: RASPBERRY SYRUP 5 ML UDP PO SCH (09:28)
[2021-07-13] MEDS: HEPARIN SOD 5,000 UNIT/0.5 ML VIAL SQ SCH ×2 (09:28→20:04)
[2021-07-13] MEDS: POTASSIUM CHLORIDE CRTAB 20 MEQ TABCR PO SCH ×2 (09:31→17:14)
[2021-07-13] MEDS: ACETAMINOPHEN 500 MG TAB PO SCH ×3 (09:32→20:08)
[2021-07-13] MEDS: CLOPIDOGREL BISULFATE 75 MG TAB PO SCH (09:33)
[2021-07-13] MEDS: ASPIRIN 81 MG ECTAB PO SCH (09:33)
[2021-07-13] MEDS: FERROUS SULFATE 325 MG TAB PO SCH ×2 (09:33→20:07)
[2021-07-13] MEDS: CALCITRIOL 0.25 MCG CAPSULE PO SCH (09:33)
[2021-07-13] MEDS: PANTOprazole 40 MG TAB PO SCH (09:34)
[2021-07-13] MEDS: METOPROLOL TARTRATE 25 MG TAB PO SCH ×2 (09:34→20:09)
[2021-07-13] MEDS: FOLIC ACID 1 MG TAB PO SCH (09:34)
[2021-07-13] MEDS ORDERED: HYDROCORTISONE HC 2.5% CRM 30GM TUBE EXT ONE (10:34)
[2021-07-13] MEDS ORDERED: HYDROCORTISONE ACETATE 25 MG SUPP PR ONE (10:36)
--- NOTE | 2021-07-13 10:47 | Pharmacy Report ---
Pharmacy Glycemic Short Note 2 - Date of Service July 13, 2021 - Glycemic Short BSG Results (Last 24 hours): 07/12/21 07/12/21 07/12/21 12:12 12:14 14:07 Glucose POC Glucose 453 H* 436 H* 302 H* 07/12/21 07/12/21 07/12/21 14:08 15:03 15:04 Glucose POC Glucose 339 H* 289 H 272 H 07/12/21 07/12/21 07/12/21 17:09 20:26 21:47 Glucose POC Glucose 215 H 278 H 316 H* 07/12/21 07/13/21 07/13/21 21:49 00:06 04:00 Glucose POC Glucose 282 H 226 H 130 H 07/13/21 07/13/21 07:38 08:20 Glucose 207 H POC Glucose 208 H OUTPATIENT ANTIDIABETIC REGIMEN: * Novolog pump * Basal rate = 1.65 units/hr or ~40 units/day * CF: 30 mg/dL/unit * CR: 1 unit per 6 gm CHO consumed * HbA1c: 8.7% (07/01/21) ASSESSMENT: 07/13: * Patient received 151 units of insulin yesterday, of which 75 units were basal * Fasting BSG 208 mg/dL - plan to continue with 40 units BID today, likely will need to titrate down * Tighten CR to 3.5 07/12: * Patient received >100 units of insulin yesterday, plus insulin drip * Drip d/c at dinner time yesterday, basal insulin was increased ~40% from home insulin pump settings over last 24 hrs * BSG this AM elevated at 328 mg/dL - Went with higher basal dose this AM * Lunch BSG still trending upward - given 8 units IV, will recheck in 2 hours to ensure trending down before starting insulin drip again * BSGs have been unpredictable since 07/09 and patient requiring significantly more insulin since then - unclear if related to infection?? 07/11: * Patient with persistent hyperglycemia over the past 24 hours despite escala tion of SQ insulin dosing * Based on IV insulin infusion rates, I would expect patient to require ~ 40 units BID of basal insulin. This is double his home use of basal (1.65 units/hr via pump). However, in a type 1 diabetic I am hesitant to make this aggressive of a change. Will trial Lantus 35 units BID. * Will continue to overlap IV insulin infusion + basal/bolus until BSG is consistently at goal and infusion rate is < 1.5 units/hr 07/10: * Patient continues to have fluctuating BSG control * Yesterday, he was started on IV insulin for severe hyperglycemia. BSG normalized around 1930 and continued to be at/near goal overnight. SQ insulin was overlapped with IV infusion. Patient had fasting BSG of 110 mg/dL this morning. I discontinued the IV insulin infusion (at that time it was running at 1.9 units/hr). BSG jumped to 468 mg/dL. Repeat BSG remained > 400 mg/dL after IV insulin bolus and 26 units of novolog, therefore I will restart IV insulin infusion. 07/09: * Patient received a total of 101 units of insulin yesterday (40 units basal + 61 units bolus) * This was ~40% increase from the previous day * BSGs were uncontrolled: [phone] mg/dL * Fasting BSG this AM continued to be uncontrolled at 407-363-393 mg/dL * Unsure of cause of severe hyperglycemia in this patient. No changes to medications or stress. No snacking identified. * Increased basal by ~20%, tightened CF, and gave an 8 unit IV bolus of insulin this AM (all given at approximately 1030) * Lunch BSGs at ~1215 were: 409-438-430 mg/dL * Decision made to start patient on insulin drip 07/08: * Ron received a total of 72 units of insulin yesterday (40 units basal + 32 units bolus) * BSGs were: [phone] mg/dL * Severe hyperglycemia this morning with three consecutive checks of 371-368-389 mg/dL * Patient's fasting BSGs have been fairly stable. Spoke with RN who did find broken crackers in patient's bed this morning leading me to believe this was not a true fasting BSG and it is erroneous. * No changes to basal insulin. * BSGs trended upwards throughout the day yesterday likely due to insufficient correctional/prandial insulin coverage. * Will tighten correction factor and carb ratio today. PLAN FOR INPATIENT GLYCEMIC CONTROL: * Outpatient insulin pump on hold * Basal insulin * Lantus 40 units SC BID * Bolus insulin * NovoLog per scale ACHS PLAN FOR DISCHARGE: * HbA1c was 8.7% from this admission. * Less stringent HbA1C goals (such as less than 8%) may be appropriate for patients with multiple comorbidities, but 8.7% is still outside of this goal. * Patient is being discharge to rehab so would like to go on basal bolus: * Could consider Lantus 35-40 units BID (35 units for BSG less than 200 mg/dL, 40 units for BSG 200 mg/dL or greater) * Novolog - Correction Factor: 20 Carb Ratio: 4 * Not yet at steady state with basal dosing. Will need close follow up outpatient as regimen will need adjusted. * This regimen is a much higher dosing regimen then pump settings. Please have patient check BSGs ACHS with also a possible overnight check the next couple of days to ensure BSGs stable * Would recommend resuming insulin pump when supplies are available. Likely will need followed closely on pump d/t recent change in insulin requirements
--- NOTE | 2021-07-13 13:25 | Orthopedic Progress Note ---
Date of Service July 13, 2021 Assessment & Plan (1) Below-knee amputation of right lower extremity: Plan: POD 12 - BKA right lower extremity with Dr. Soto Continue splint and dressings Continue antibiotics as per primary service Ice and elevate right lower extremity to relieve pain/swelling Non weight bearing right lower extremity PT as ordered, - allowed out of bed for transfers. regular diet as ordered On ASA and Plavix. Would benefit from inpatient rehab - plan for discharge to [facility] today. Dr. Soto present for today's visit. Dressings replaced and new splint applied today. Will follow up as scheduled next week as an outpatient. Okay from ortho standpoint when medically stable. All questions answered, patient understands post operative course. Admission and Anticipated Discharge Date Admission Date: June 30, 2021 Subjective Patient resting in bed, doing well. No complaints of pain in right leg. To lerating splint. States that he might be leaving today, but maybe another day due to his elevated blood sugars. Physical Exam Musculoskeletal: Exam of right lower extremity: Seen today by myself and Dr. Soto. Dressings and splint removed. Incision clean, dry and intact except a small amount of serous fluid from medial aspect of incision. No surrounding fluctuance or erythema, from previous surgical site. Sutures and sharri retained. Stump nontender with palpation, no edema. No effusion right knee. Right knee nontender. No ecchymsosis or erythema of stump. Tolerates full ROM right hip. Able to independently SLR. Results & Data ([facility]) Vital Signs (Past 12 Hours) Vital Signs Temp Pulse Resp BP Pulse Ox 07/13/21 07:45 36.9 C 70 18 123/71 94
[2021-07-13] MEDS: CARBOHYDRATES FOR HYPOGLYCEMIA PO PRN ×2 (16:16→16:42)
[2021-07-13] MEDS: ATORVASTATIN 40 MG TAB PO SCH (20:08)
[2021-07-13] MEDS: INSULIN GLARGINE SOLOSTAR 100 UNITS/ML 3 ML PEN SC SCH (20:32)
[2021-07-14] MEDS ORDERED: INSULIN ASPART 100 UNITS/ML 3 ML PEN SC SCH
[2021-07-14] MEDS: AMPICILLIN 2,000 MG in SODIUM CHLOR 0.9% AD-VAN 100 ML IV SCH ×2 (03:59→08:52)
[2021-07-14] MEDS: LEVOTHYROXINE SODIUM 175 MCG TABLET PO SCH (06:14)
--- NOTE | 2021-07-14 08:37 | Hospitalist Progress Note ---
Date of Service July 14, 2021 Assessment & Plan Admission and Anticipated Discharge Date Admission Date: June 30, 2021 Results & Data Results & Data ([facility]) Vital Signs (Past 12 Hours) Vital Signs Temp Pulse Resp BP Pulse Ox 07/14/21 07:43 36.6 C 83 18 124/71 96 07/13/21 23:20 36.6 C 67 18 136/70 97 PG Care Time/CCT Total # of Minutes Spent Total Time Spent with Patient: Total time spent is greater than 50% in coordination of care (as documented) at patient's floor/unit and/or counseling patient: Coding
--- NOTE | 2021-07-14 08:38 | Discharge Summary ---
Date of Service July 14, 2021 Admission HPI Per Admitting Provider 66 yo male reports coming to the hosptial as he noted having a stronger odor coming from his foot from last night. This AM, he felt subjective fever, and chills and decided he should come into the ER. Patient follows with Dr. Beasley as an outpatient, and it appears he has plans for amputating his foot, as patient failed revascularization by Dr. Eason back in january as his graft became occluded. Now he is trying to get an Below knee amputation and was waiting for his vascular incision to heal. He also reports that he is curretnly getting vancomycin for his c diff treatment and is finishing a taper dose. He is currently taking BID dosing to complete 7 days and will then be on 7 day daily. Patient however reports he no longer is having diarrhea. Admission Exam Per Admitting Provider Constitutional: WD/WN, vitals as above (Room has an extremely foul odor due to foot infection.) Eyes: PERRL, conjunctivae normal, anicteric sclerae ENMT: external ear and nose normal, oropharynx normal Neck: trachea midline, no thyromegaly Respiratory: normal respiratory effort, lungs clear to auscultation Cardiovascular: RRR, no murmur, no edema Gastrointestinal (Abdomen): normal bowel sounds, soft, nontender, no hepatosplenomegaly Musculoskeletal: Right foot: Appears to be necrosis on heel and dry gangrene of the fifth digit. Peripheral pulses not able to be palpated. Healed surgical scar from revascularization surgery over anterior lower leg noted Skin: as noted above Neurologic: PERRL, EOMI, accommodation nl, no face palsy, no dysarthria Psychiatric: A+Ox3, euthymic affect Lymphatic: no cervical or axillary lymphadenopathy Principal Diagnosis Dry Gangrene, Bacteremia, Right BKA Discharge Exam General Appearance: WDWN in NAD who is A&O x 3 HEENT: Head is normocephalic/atraumatic; Hearing grossly intact; Mucous membranes moist Neck: Supple; Trachea midline; Neg JVD Heart: RRR with murmur Lungs: CTA in all lung fuller bilaterally; Respirations unlabored; Neg accessory muscle use Abdomen: Soft, non-tender, non-distended; Positive BS x 4 quadrants Extremities: Neg cyanosis or edema; R stump with dressing in place - C/D/I Neurological: Speech clear; Gross motor/sensory function intact; Neg focal neurologic deficits Psychiatric: Appropriate mood/affect Skin: Normal Color; Warm/Dry Discharge Data Allergies Allergy/AdvReac Type Severity Reaction Status Date / Time No Known Allergies Allergy Unknown Verified 06/30/21 11:59 Consultations 06/30/21 13:10 ED Decision to Admit Stat 06/30/21 13:53 Consult Orthopedic Surgery Routine 06/30/21 13:54 Consult Vascular Surgery Routine 07/06/21 09:57 Consult Infectious Diseases Routine Procedures Performed Operation Date: 07/01/21 07:00 Actual Procedures p Right Below Knee Amputation(Right) - Xander Soto MD Ordered Studies Chest X-Ray 06/30/21 12:14 XR chest 1V portable CLINICAL HISTORY: Sepsis. COMPARISON STUDY: Chest radiograph March 22, 2021. FINDINGS: Median sternotomy wires are noted. There is a prosthetic cardiac valve. Cardiac size is normal. Mediastinal contours are unremarkable. Mild elevation of the right hemidiaphragm is present. Linear right basilar opacity favors atelectasis. There is no evidence for pulmonary edema. IMPRESSION: 1. Mild elevation of the right diaphragm, new since prior exam. 2. Linear right basilar opacity suggestive of atelectasis. ACT 112: Negative or not required by law. Electronically signed by: Benji Oconnell M.D. 06/30/2021 1:04 PM Foot X-Ray 06/30/21 12:14 XR foot RT min 3V routine CLINICAL HISTORY: Dry gangrene. Right foot swelling. COMPARISON STUDY: Right foot 01/13/2021. FINDINGS: Large wound at the posterior heel with exposure of the bone. There is soft tissue gas along the plantar surface of the foot. Vascular calcifications are noted. There is erosive changes seen at the posterior calcaneus consistent with an osteomyelitis. A single screw within the right first toe. The hardware appears intact. IMPRESSION: 1. Large wound at the posterior heel with exposure of the posterior calcaneus which demonstrates erosive change/destruction the setting of an osteomyelitis. 2. Soft tissue gas extends along the plantar surface of the foot. This could be secondary to the large wound or represent underlying infection with a gas- forming organism. ACT 112: Negative or not required by law. Electronically signed by: Otf Avila M.D. 06/30/2021 1:07 PM Chest X-Ray 06/30/21 18:11 TWO VIEW CHEST CLINICAL HISTORY: Sepsis. FINDINGS: AP and lateral chest radiographs are compared to study performed earlier the same day 06/30/2021. The AP views degraded by apical lordotic positioning. The patient is status post midline sternotomy and cardiac valve surgery. The heart is mildly enlarged noting atherosclerotic calcification of the thoracic aorta. The pulmonary vasculature is noncongested. Chronic interstitial thickening is similar to previous. Scarring/atelectasis is noted at the lung bases, with elevation right hemidiaphragm and subsegmental atelectasis at the right lung base. No airspace consolidation typical for pneumonia or large pleural effusion is identified. There is no pneumothorax. The skeletal structures are osteopenic. The bony thorax appears intact. IMPRESSION: Mild cardiomegaly with no acute cardiopulmonary abnormality. ACT 112: Negative or not required by law. Electronically signed by: Tae Pizarro M.D. 07/01/2021 8:26 AM Tibia/Fibula X-Ray 07/01/21 00:00 FL tibia/fibula RT 2V CLINICAL HISTORY: Right [id number] amputation. COMPARISON STUDY: None. FLUOROSCOPY TIME: 8 seconds. FINDINGS: 4 fluoroscopic spot images of the right tibia/fibular were submitted. There are postoperative changes consistent with a below the knee amputation. IMPRESSION: Fluoroscopy provided for right below the knee amputation. ACT 112: Negative or not required by law. Electronically signed by: Otf Avila M.D. 07/01/2021 6:10 PM Lower Extremity CTA 07/01/21 07:37 CT ANGIOGRAPHY OF THE RIGHT LOWER EXTREMITY CLINICAL HISTORY: Possible infected graft. Right leg pain. COMPARISON STUDY: CTA of the right lower extremity January 20, 2021. Right lower extremity arterial Doppler ultrasound January 25, 2021. Right foot radiographs June 30, 2021. TECHNIQUE: Helical axial images of the right lower extremity were obtained during arterial phase following intravenous injection of 120 cc Optiray 320 IV. Sagittal and coronal reconstructions were viewed as well as maximal intensity projections on an independent 3-D workstation. Automated exposure control was utilized for the study. A dose lowering technique was utilized adhering to the principles of ALARA. FINDINGS: Old deformity of the right iliac bone is noted. There are old, healed fractures of the right tibia and fibula. Note is made of extensive gas within the right foot and ankle as shown on radiographs. Wound overlying the calcaneus is partially imaged on this exam. Multifocal osteomyelitis within the right foot and ankle is noted, including bony erosions within the calcaneus, distal right fibula as well as the adjacent talus and the distal phalanx of the right fifth toe which contains gas. Gas and fluid containing collection along the plantar muscles suggest an abscess. Fluid and gas extends along the distal Achilles. Right common iliac artery stent is patent. 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 This was shown on prior CT of January 20, 2021. Mild dilatation of the right common femoral artery is unchanged. Note is again made of an occluded right femoral to posterior tibial bypass graft, as shown on prior CT. There is extensive plaque with occlusion of the upper sioux right superficial femoral artery. There is distal reconstitution within the right calf vessels which are suboptimally assessed given their small size and extensive plaque. Severe multifocal stenoses within the right anterior tibial, posterior tibial and peroneal arteries are noted. There is no infiltration adjacent to the graft to suggest an infected graft by CT. IMPRESSION: 1. Findings consistent with severe infectious process within the right ankle and foot, as described above. Multifocal osteomyelitis involving the right calcaneus, distal fibula, talus and distal phalanx of the right fifth toe. Wound overlying the calcaneus. Extensive soft tissue gas suggestive a gas-forming infectious process with associated abscess along the flexor musculature. 2. 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 No CT findings to suggest graft infection. 3. Chronic occlusion of the upper sioux right superficial femoral artery with distal reconstitution through collaterals, as described above. Severe multifocal stenoses within the right calf vessels which are suboptimally assessed due to their small size and extensive calcified plaque. ACT 112: Negative or not required by law. Electronically signed by: Benji Oconnell M.D. 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 This was discussed with cardiology during stay and they agreed could consider repeat TTE for any changes (repeat inpatient without evidence). --> Discussed with patient and if any concerns for continuing infection/fever/etc would rec he undergo JUAN PABLO at that time and would need to extend abx to 6wks, rocephin for coverage Decision for Ampicillin x 14 days from negative blood culture (to be completed July 17) Peripheral guided IV placed-- additional 3 days left of therapy Prior +c.diff and taper completed with vancomycin during stay but decision to continue daily dosing while on antibiotics --> If worsening diarrhea/continued after completion of antibiotics would recommend repeating cdiff testing. Could consider Dificid if + Did have difficulty with blood sugar control during stay. Is a DM type I and difficult to control off his home pump (ran out of supplies and attempting to have niece coordinate to have dropped off at [facility]) Almost on double usual needs and have been having spikes but with tightening actually went low and decision was made to utilize SSI with CR/CF for at [facility] with close monitoring given increased needs until able to get home pump and adjust back. At d/c: Lantus 35-40u BID (35 for BSG <200, 40 for BSG 200 or >) Novolog CF 25, CR 4 (2) Dry gangrene: as above s/p BKA continued abx for bacteremia to complete 14 day course (3) Clostridium difficile colitis: Intermittent loose stool - no abdominal pains/fever Completed Vancomycin 125 mg daily taper for infection - however will continue with daily dosing while on IV Abx and with diarrhea discussed repeating stool sample if continued issues once abx completed or worsening diarrhea. would need to consider tx w dificid? (4) Acute hyponatremia: Resolved Held thiazide at d/c and to monitor blood pressures off of such. If need to resume, would repeat kidney function testing to ensure stability (5) Folate deficiency: Continued supplementation (6) Peripheral arterial disease: Continued ASA/Plavix, Atorvastatin 80 mg HS (7) Diabetes type 1, controlled: Last A1c 8.7 Insulin gtt while inpatient for elevated sugars. Labile BSGs and multiple adjustments made Close monitoring at d/c as above and hopeful once able to get supplies for his pump sugars will have much better control (8) Anemia: Acute blood loss anemia in the post operative setting Hgb remained in 7s with vitals stable and asymptomatic so gave 1 unit PRBC Hgb continued to improve, 9.9 on day of discharge (9) DVT prophylaxis: Heparin while inpatient Per ortho ok with ASA/plavix at d/c Discharged to [facility] for rehab Total Time Total Time Spent Total Time Spent (In Minutes): 120 Discharge Plan Discharge Items Patient Disposition: Transfer Inpatient Rehab Fac Reason For Visit: GANGRENE Discharge Diagnosis: Gangrene, Bacteremia Goals: You have been hospitalized for an urgent problem which required surgery. During your stay at [facility], we have made an effort to correct the problem that brought you to the hospital while keeping you as comfortable as possible. Surgery and medications were used to bring your condition under control and your discharge instructions will include directions for any medications you should take after leaving the hospital. Please make sure to follow the advice of your surgeon regarding follow up with the surgeon and with your primary care provider. Activity: Per Instructions section Weightbearing: Right non-weightbearing Non-emergency contact: Surgeon Call non-emergency contact if: your symptoms worsen, your pain is not controlled, your temperature is above 101 and your wound has increased redness Follow-up/Referrals: Enio Richards III, MD [Primary Care Provider] - Cori Graves PA-C [Physician [employer] Inspector] - 07/21/21 11:30 am Diet: Regular Addtl Attending Provider Instructions: You have been hospitalized for infection and found that infection also spread to the blood. Surgery was consulted and you underwent BKA to your R leg. Orthopedics have evaluated and determined stable from their standpoint for discharge with outp atient follow up. You were treated with antibiotics and have repeat blood cultures have been negative. Infectious Disease was consulted and determined to continue on antibiotics with Ampicillin until July 17. You will continue on Vancomycin 125mg orally daily while on antibiotics given c.diff, which you completed a taper for while in the hospital. As discussed, if continued diarrhea, may be worth to retest stool to see if you need repeat course of Vancomycin. Imaging of your heart was performed with ultrasound which did not show any signs of vegetation, however if you develop any fevers/infection, would recommend repeating a TTE sooner if not, an JUAN PABLO given your prosthetic valve. Therapy was consulted and recommended rehab at discharge and this has been arranged for [facility]. Your blood sugars were labile and adjustments have been made while you are awaiting your supplies for your pump. They may need to make further adjustments, but sugars have been better controlled: * Lantus 35-40 units BID (35 units for BSG less than 200 mg/dL, 40 units for BSG 200 mg/dL or greater) * Novolog - Correction Factor: 25 Carb Ratio: 4 You chlorthalidone was held during admission and should continue to be held at discharge as blood pressures have been stable. Continue to monitor volume status and blood pressures and can resume if elevated, however would have your labs checked to ensure kidney function stable once resumed. Please follow up with Orthopedics as scheduled as well as your primary care provider in the next week to monitor your progress. Please return to the emergency department with any fever, chills, chest pain, shortness of breath, worsening diarrhea, drainage from stump, or for any other symptoms that are concerning for you. It has been a pleasure being a part of the medical team providing for you while you have been in the hospital. Addtl Director Of [employer] Work Provider Instructions: Elevate right lower extremity above your heart to relieve pain/swelling Ice to right leg/stump as needed for pain/swelling No weight on right leg, allowed to weight bear as tolerated left lower extremity Keep splint/dressings on right leg at all times. Call [phone] to schedule a follow up appointment if you do not already have one. Exercises as taught by the therapist. Pending Studies at Discharge: No Stand-Alone Forms: My [facility] Skilled Items Patient informed of condition?: Yes DNR: No Discharge Level of Care: Acute rehab Communicable Disease: Yes Discharge Prognosis: Stable Lines: US Guided Peripheral IV Urinary Catheter: No Medications and DC Order Prescriptions: New vancomycin 1,000 mg Recon Soln 125 mg PO DAILY Qty: 3 RF: 0 acetaminophen [Tylenol Extra Strength] 500 mg Tablet 1,000 mg PO TID Qty: 20 RF: 0 Lantus Solostar U-100 Insulin 100 unit/mL (3 mL) Insulin Pen See Rx Instructions .ROUTE .COMPLEX Qty: 3 RF: 0 insulin aspart U-100 [Novolog Flexpen U-100 Insulin] 100 unit/mL (3 mL) Insulin Pen See Rx Instructions .ROUTE .COMPLEX Qty: 3 RF: 0 ampicillin sodium 2 gram recon soln 2 g IV Q4H Qty: 10 RF: 0 Continued atorvastatin [Lipitor] 80 mg tablet 80 mg PO HS Qty: 90 RF: 3 clopidogrel [Plavix] 75 mg tablet 75 mg PO QAM Qty: 30 RF: 5 metoprolol tartrate 25 mg tablet 12.5 mg PO BID Qty: 90 RF: 3 potassium chloride 20 mEq tablet extended release 20 meq PO BID Qty: 60 RF: 5 calcitriol [Rocaltrol] 0.25 mcg capsule 0.25 mcg PO QAM Qty: 30 RF: 5 pantoprazole [Protonix] 40 mg tablet,delayed release (DR/EC) 40 mg PO QAM Qty: 30 RF: 5 hydrocortisone [Proctosol HC] 2.5 % cream with perineal applicator 1 applic EXT BID 10 Days Qty: 30 RF: 1 levothyroxine [Synthroid] 175 mcg tablet 175 mcg PO QAM RF: 0 insulin aspart U-100 [Novolog U-100 Insulin aspart] 100 unit/mL solution 60 unit SQ CONT RF: 0 folic acid 1 mg Tablet 1 mg PO QAM Qty: 30 RF: 0 ferrous sulfate 325 mg (65 mg iron) Tablet,Delayed Release (Dr/Ec) 325 mg PO BID Qty: 60 RF: 0 aspirin [Aspirin Low Dose] 81 mg tablet,delayed release (DR/EC) 81 mg PO QAM RF: 0 oxycodone 5 mg tablet 5 mg PO TID PRN (Reason: Pain) Qty: 30 RF: 0 Discontinued chlorthalidone 25 mg tablet 25 mg PO QAM Qty: 90 RF: 3 vancomycin 125 mg capsule 125 mg PO DIRECTED RF: 0 Discharge Orders: Discharge Order (Routine); Ordered 07/14/21 Ordered By: Rosey Morse/Other Patient Handouts: Clostridium Difficile Infection Admission Data Admit Date/Time: 06/30/21 14:36 Attending Provider: Lui Ellis Admit Provider: Lui Ellis Primary Care Provider: Enio Richards III Other Providers: [facility] ; Lui Ellis ; Xander Soto ; Floyd Eason ; [facility] ; Oliver Richardson ; Meme Grider ; Kris Wei I. ; French Langford II ; Hayley Key ; Tyree Laguerre ; Alexis Capps Other Interventions: Discharge Summary Assessment (RN) Last Done: 07/14/21 13:54 Supervising Physician Co-Signing Physician Notes I reviewed above note and agree with it. During face to face encounter, I performed history of hospital stay and physical examination. D/W APC Rosey Preston. Answered all of the patient's questions. Patient will be discharged on antibiotics to treat bacteremia Coding Level of Care Code D/C DAY MANAGEMENT >30 MINS Diagnoses Dry gangrene I96 Clostridium difficile colitis A04.72 Acute hyponatremia E87.1 Folate deficiency E53.8 Peripheral arterial disease I73.9 Diabetes type 1, controlled E10.9 Anemia D64.9 DVT prophylaxis Z29.9 Bacteremia R78.81
[2021-07-14] MEDS: HEPARIN SOD 5,000 UNIT/0.5 ML VIAL SQ SCH (08:55)
[2021-07-14] MEDS: VANCOMYCIN HCL 125 MG/2.5ML SOLN PO SCH (08:55)
[2021-07-14] MEDS: POTASSIUM CHLORIDE CRTAB 20 MEQ TABCR PO SCH (08:55)
[2021-07-14] MEDS: RASPBERRY SYRUP 5 ML UDP PO SCH (08:55)
[2021-07-14] MEDS: CLOPIDOGREL BISULFATE 75 MG TAB PO SCH (08:56)
[2021-07-14] MEDS: METOPROLOL TARTRATE 25 MG TAB PO SCH (08:56)
[2021-07-14] MEDS: CALCITRIOL 0.25 MCG CAPSULE PO SCH (08:56)
[2021-07-14] MEDS: ASPIRIN 81 MG ECTAB PO SCH (08:56)
[2021-07-14] MEDS: FERROUS SULFATE 325 MG TAB PO SCH (08:56)
[2021-07-14] MEDS: FOLIC ACID 1 MG TAB PO SCH (08:56)
[2021-07-14] MEDS: INSULIN GLARGINE SOLOSTAR 100 UNITS/ML 3 ML PEN SC SCH (08:58)
[2021-07-14] MEDS: PANTOprazole 40 MG TAB PO SCH (08:58)
[2021-07-14] MEDS: INSULIN ASPART 100 UNITS/ML 3 ML PEN SC SCH ×2 (08:59→11:34)
[2021-07-14 09:27] LABS: Basophils # (auto) 0.02 K/uL (0-0.2); Basophils % (auto) 0.3 %; Eosinophils # (auto) 0.22 K/uL (0-0.5); Eosinophils % (auto) 3.1 %; Hematocrit (blood only) 32.3 % (42-52); Hemoglobin 9.9 g/dL (14.0-18.0); Immature Granulocytes # (auto) 0.02 K/uL (0.00-0.02); Immature Granulocytes % (auto) 0.3 %; Lymphocytes # (auto) 1.57 K/uL (1.2-3.4); Lymphocytes % (auto) 21.9 %; Mean Corpuscular Hemoglobin 26.2 pg (25-34); Mean Corpuscular Hgb Conc 30.7 g/dL (32-36); Mean Corpuscular Volume 85.4 fL (80-100); Mean Platelet Volume 8.8 fL (7.4-10.4); Monocytes # (auto) 0.74 K/uL (0.11-0.59); Monocytes % (auto) 10.3 %; Neutrophils # (auto) 4.61 K/uL (1.4-6.5); Neutrophils % (auto) 64.1 %; Platelet Count 500 K/uL (130-400); RDW Coefficient of Variation 20.4 % (11.5-14.5); Red Blood Count 3.78 M/uL (4.7-6.1); White Blood Count 7.18 K/uL (4.8-10.8)
[2021-07-14 09:54] LABS: BUN Creatinine Ratio 20.5 (10-20); Calcium 9.5 mg/dl (8.5-10.1); Creatinine Clr Calc Pharmacy 97.6 ml/min; Est GFR (Non-African American) 97.5 ml/min; Potassium 4.3 mmol/L (3.5-5.1)
[2021-07-14 10:31] LABS: Anisocytosis Present; Echinocytes 1+
[2021-07-14] MEDS: ACETAMINOPHEN 500 MG TAB PO SCH (10:49)
== END 2021-07-14 12:58 | DRG 854 ==
LOC: ED 11:03 → 3E 14:36 → SUATTDRO 14:36 → 3E 17:44

== ENCOUNTER 2021-08-24 18:13 | Inpatient (IN) ==
[2021-08-24] MEDS ORDERED: SODIUM CHLORIDE 0.9% 1000ML 1,000 ML IV STA (18:42)
--- NOTE | 2021-08-24 18:49 | Emergency Department Note ---
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 Patient is an insulin-dependent diabetic, states he has a pump, patient states t hat he accidentally bumped his pump when he was removing his shirt today and he thinks that he disrupted the tubing. An alert when off telling him that insulin was not being delivered. Patient then removed his pump and turned it off. States he was trying to manage his blood sugar at home with subcutaneous insulin at that time but his sugars continued to uptrend and therefore he contacted EMS for transport to the ED. On arrival here to the ED the patient states he feels well, denies any nausea or vomiting, he is hemodynamically stable on arrival, alert and oriented x3, otherwise no acute distress. ROS: -General: Hyperglycemia *10 point review systems was conducted and is otherwise negative unless stated above *Outpatient medications and allergy history reviewed PE: General: Alert, NAD HEENT: Normocephalic, atraumatic, trachea midline Eyes: Extraocular eye movement is intact, no scleral erythema Pulmonary: Clear to auscultation bilaterally, no wheezing Cardio: Regular rate and rhythm GI: Abdomen is soft, nontender : No suprapubic tenderness MSK: No evidence of trauma of the extremities, no edema, status post right-sided BKA Skin: No evidence of rash Neuro: Alert, no focal deficits Psychiatric: Cooperative monitor tech: - An order was placed for continuous cardiac monitoring - Patient was noted to be in sinus rhythm with rate of 90 EKG: Rate: 93 Rhythm: Normal sinus rhythm Intervals: Within normal limits ST changes: No ST elevation Time: 1849 Medical Decision Making: Patient presented to the emergency department with hyperglycemia. States that he recently had to disconnect his insulin pump because it was malfunctioning. He was attempting to correct his insulin at home with subcutaneous insulin without success. Here in the ED his blood sugar did return at greater than 500, he does have an anion gap of 15, his bicarbonate level appears appropriate at 21. He does have some ketones in his urine as well. Patient was given IV fluids in the ED, venous blood gas was obtained that shows evidence of slight acidosis. Potassium is 4.3 therefore I did initiate an insulin drip for correction. Patient is noted to have a leukocytosis of greater than 20,000, blood cultures were ordered, patient was started on broad-spectrum antibiotics given his underlying comorbidities, no clear source of infection at this time, chest x-ray does not show any evidence of pneumonia, urinalysis does not appear to show infection. My reassessment the patient did have a large volume runny bowel movement. He does have a history of C. difficile therefore will send for stool studies. His abdomen is soft and nontender, he does not have any abdominal pain therefore I did not order CT imaging of the abdomen. I discussed the above findings with the patient, he is agreeable for admission, COVID-19 testing is negative, case was discussed with the on-call midlevel provider, Pete Hill, patient was accepted to the [facility] medical provider group for further management. Patient was in agreement the above plan he was admitted in improved condition. * Diagnosis: Hyperglycemia with evidence of DKA * Disposition: Admission * CRITICAL CARE TIME: 52 min -Initiation of insulin drip for correction of hyperglycemia with evidence of DKA with ketonuria and anion gap elevation, time spent at the bedside, interpretation of diagnostic studies, discussion with other healthcare providers, arrangement of admission Tyree Perry DO Emergency Medicine Past Med/Surg History Medical History Aortic stenosis s/p porcine valve replacement (2015) with CABG x 1 CAD (coronary artery disease) s/p CABG x 1 (2016) CKD (chronic kidney disease) stage 2, GFR 60-89 ml/min Clostridium difficile infection CURRENTLY [place] Diabetes mellitus type 1 + Insulin pump Diabetic nephropathy associated with type 1 diabetes mellitus Dyslipidemia GERD (gastroesophageal reflux disease) Hypertension Hypothyroidism Insulin pump in place Osteoarthritis Osteoporosis Proliferative diabetic retinopathy associated with type 1 diabetes mellitus PVD (peripheral vascular disease) s/p B/L iliac artery stents (2014), R common/external iliac (2017), R common femoral endarterectomy (11/2018) with bovine patch. Left femoral to PT composite bypass graft (06/2020) VRE infection (vancomycin resistant enterococcus), with multi-drug resistance Surgical History Below-knee amputation of right lower extremity RETURNED HOME FROM [facility] 07/30/21 H/O cataract extraction R/L H/O endarterectomy R common femoral (11/2018) H/O vascular surgery Right Femoral to Posterior tibial Prosthetic Bypass Graft(Right) History of ankle surgery LEFT ANKLE +HARDWARE REMOVED History of aortic valve replacement 2016 [place] History of arterial bypass of lower extremity Left femoral to PT composite bypass graft (06/2020) History of cardiac cath x2, most recent 2016 > no stents (subsequent CABG with AVR in 2016) History of carpal tunnel release R/L History of colonoscopy History of coronary artery bypass graft CABG x1 + AVR (2016) History of esophagogastroduodenoscopy (EGD) History of myringotomy History of open reduction and internal fixation (ORIF) procedure LLE () History of skin graft Split Thickness Skin Graft of Left Lateral Ankle (11/18/20): LMA#5, atraumatic x1 at [facility] History of tonsillectomy History of tooth extraction History of umbilical hernia repair Hx of surgical procedure Left Leg Wound Debridement and Irrigation S/P femoropopliteal bypass surgery Right fem-pop bypass graft (01/19/21): Grade 2 view, MAC 3.0, ETT 8.0 at [facility] S/P insertion of iliac artery stent B/L iliac stent placement (2014) 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 Family History Brother Family history of diabetes mellitus Sister Family history of diabetes mellitus Mother Family history of diabetes mellitus Grandmother (Maternal) Family history of diabetes mellitus Uncle Family hx of colon cancer Colorectal cancer Father Family history of esophageal cancer Sister Family history of diabetes mellitus Other No family history of adverse response to anesthesia Denies family history of Ovarian cancer Prostate cancer Myocardial infarction Breast cancer Social History Smoking Status: Never smoker Tobacco Type: Cigarettes and Smokeless Tobacco (Dip or Chew) Cigarettes Per Day: Quit 15 years ago; Second Hand Exposure: No; Hx Alcohol Use: Yes Alcohol type: beer Alcohol Intake Frequency: Monthly or Less Preferred Language: Armenian Communication Ability: Effective Visual Impairment: No Limitations Hearing Ability: Normal Transportation Maintenance Operator Required: No Beliefs That Will Affect Care: None marital status: Current Living Situation: Other Current Living Situation Comment: LIVES WITH RO[facility]ATE + [facility] [address]X [address] How many Children do You have: 2 Feels Safe at Home: Yes Childhood Exposure to Second-Hand Smoke: Yes Diet Comment: Carb Counts. ([id number], roughly), protein drinks caffeine: Yes (coffee, rarely ) during the past year weight has: remained stable Dental Care, Regularly: No Physical Activity Frequency: 1-2 Times per Week Seatbelt Use: always Sunscreen Use: No Gender Identity: Male Assistive Devices: Denture - Upper, Glasses, Walker and Wheelchair Allergies Allergies Allergy/AdvReac Type Severity Reaction Status Date / Time No Known Allergies Allergy Unknown Verified 08/24/21 19:14 Home Meds Home Medications Medication Instructions Recorded Confirmed aspirin 81 mg tablet,delayed 81 mg PO QAM 05/04/21 08/24/21 release (Aspirin Low Dose) insulin aspart U-100 100 unit/mL 60 unit SQ CONT 06/30/21 08/24/21 subcutaneous solution (Novolog U-100 Insulin aspart) levothyroxine 175 mcg tablet 175 mcg PO QAM 06/30/21 08/24/21 (Synthroid) acetaminophen 500 mg tablet 1,000 mg PO TID PRN 08/02/21 08/24/21 (Tylenol Extra Strength) lactobacillus combination no.9 4 4,000 mmu cells PO DAILY 08/04/21 08/24/21 billion cell capsule (Adult 50 Plus Probiotic) Previous Rx's Medication Instructions Recorded atorvastatin 80 mg tablet (Lipitor) 80 mg PO HS #90 tab 11/25/20 clopidogrel 75 mg tablet (Plavix) 75 mg PO QAM #30 tab 01/28/21 metoprolol tartrate 25 mg tablet 12.5 mg PO BID #90 tab 02/09/21 potassium chloride 20 mEq 20 meq PO BID #60 tab 02/22/21 tablet,extended release calcitriol 0.25 mcg capsule 0.25 mcg PO QAM #30 cap 04/27/21 (Rocaltrol) hydrocortisone 2.5 % topical cream 1 applic EXT BID 10 Days #30 g 05/20/21 with perineal applicator (Proctosol HC) pantoprazole 40 mg tablet,delayed 40 mg PO QAM #30 tab 06/15/21 release (Protonix) insulin aspart U-100 100 unit/mL See Rx Instructions .ROUTE 07/14/21 (3 mL) subcutaneous pen (Novolog .COMPLEX #3 ml Flexpen U-100 Insulin aspart) ferrous sulfate 325 mg (65 mg 325 mg PO BID #60 tab 08/03/21 iron) tablet,delayed release folic acid 1 mg tablet 1 mg PO QAM #30 tab 08/03/21 oxycodone 5 mg tablet 5 mg PO Q12H PRN #30 tab 08/04/21 Bed Side Commode #1 ea 08/09/21 Commode rails #1 ea 08/10/21 Results & Data (ED) Vital Signs Vital Signs - 24 hr 08/24/21 18:30 08/24/21 18:44 Temperature 37.2 C Temperature Source Oral Pulse Rate 85 Respiratory Rate 14 Respiratory Effort / Characteristics Non-Labored Respiratory Depth Normal Blood Pressure 144/76 H Blood Pressure Mean 98 Pulse Oximetry 98 99 Oxygen Delivery Method Room Air Room Air Sepsis Recent Fever Within 48 Hours No Sepsis New/Unexplained Change in Mental Status No Sepsis Action Taken by Nursing No Action Required Laboratory Data Result diagrams: 08/24/21 18:42 08/24/21 18:42 Lab Results 08/24/21 08/24/21 08/24/21 Range/Units 18:42 18:42 18:42 WBC (4.8-10.8) K/uL RBC (4.7-6.1) M/uL Hgb (14.0-18.0) g/dL Hct (42-52) % MCV (80-100) fL MCH (25-34) pg MCHC (32-36) g/dL RDW Std Deviation (36.4-46.3) fL RDW Coeff of Chan (11.5-14.5) % Plt Count (130-400) K/uL MPV (7.4-10.4) fL Immature Gran % (Auto) % Neut % (Auto) % Lymph % (Auto) % [place] % (Auto) % Eos % (Auto) % Baso % (Auto) % Neut # (Auto) (1.4-6.5) K/uL Lymph # (Auto) (1.2-3.4) K/uL [place] # (Auto) (0.11-0.59) K/uL Eos # (Auto) (0-0.5) K/uL Baso # (Auto) (0-0.2) K/uL Immature Gran # (Auto) (0.00-0.02) K/uL RBC Morphology PT 10.8 (9.0-12.0) Seconds INR 1.1 (0.9-1.1) VBG pH (7.36-7.41) VBG pCO2 (38-50) mmHg VBG pO2 mmHg VBG HCO3 mmol/L VBG O2 Saturation % VBG Base Excess mEq/L Barometric Pressure mm/Hg Sodium 127 L (136-145) mmol/L Potassium 4.3 (3.5-5.1) mmol/L Chloride 91 L (98-107) mmol/L Carbon Dioxide 21 (21-32) mmol/L Anion Gap 15.0 H (3-11) BUN 23 H (7-18) mg/dl Creatinine 1.15 (0.6-1.4) mg/dl Est Cr Clr Drug Dosing 62.8 ml/min Est GFR ( Amer) 77.5 ml/min Est GFR (Non-Af Amer) 66.9 ml/min BUN/Creatinine Ratio 20.1 H (10-20) Glucose 568 H* (70-99) mg/dl POC Glucose (70-99) mg/dl Lactate 1.5 (0.4-2.0) mmol/L Calcium 10.0 (8.5-10.1) mg/dl Total Bilirubin 0.6 (0.2-1) mg/dl AST 19 (15-37) U/L ALT 33 (12-78) Alkaline Phosphatase 186 H (45-117) U/L Troponin I < 0.015 (0-0.045) ng/ml Total Protein 7.9 (6.4-8.2) gm/dl Albumin 3.2 L (3.4-5.0) gm/dl Globulin 4.7 H (2.5-4.0) gm/dl Albumin/Globulin Ratio 0.7 L (0.9-2) Lipase 81 (73-393) U/L Beta-Hydroxybutyric Acd (0.2-2.81) mg/dl Urine Color Urine Appearance (Clear) Urine pH (4.5-7.5) Ur Specific Dragoon (1.000-1.030) Urine Protein (Negative) Urine Glucose (UA) (Negative) Urine Ketones (Negative) Urine Blood (Negative) Urine Nitrite (Negative) Urine Bilirubin (Negative) Urine Urobilinogen (Negative) Ur Leukocyte Esterase (Negative) 08/24/21 08/24/21 08/24/21 Range/Units 18:42 18:44 18:54 WBC 22.34 H (4.8-10.8) K/uL RBC 4.98 (4.7-6.1) M/uL Hgb 14.1 (14.0-18.0) g/dL Hct 43.1 (42-52) % MCV 86.5 (80-100) fL MCH 28.3 (25-34) pg MCHC 32.7 (32-36) g/dL RDW Std Deviation 51.8 H (36.4-46.3) fL RDW Coeff of Chan 16.3 H (11.5-14.5) % Plt Count 277 (130-400) K/uL MPV 10.7 H (7.4-10.4) fL Immature Gran % (Auto) 0.2 % Neut % (Auto) 88.0 % Lymph % (Auto) 5.6 % [place] % (Auto) 5.6 % Eos % (Auto) 0.4 % Baso % (Auto) 0.2 % Neut # (Auto) 19.64 H (1.4-6.5) K/uL Lymph # (Auto) 1.24 (1.2-3.4) K/uL [place] # (Auto) 1.26 H (0.11-0.59) K/uL Eos # (Auto) 0.10 (0-0.5) K/uL Baso # (Auto) 0.05 (0-0.2) K/uL Immature Gran # (Auto) 0.05 H (0.00-0.02) K/uL RBC Morphology Unremarkable PT (9.0-12.0) Seconds INR (0.9-1.1) VBG pH 7.34 L (7.36-7.41) VBG pCO2 36 L (38-50) mmHg VBG pO2 44 mmHg VBG HCO3 19 mmol/L VBG O2 Saturation 75.9 % VBG Base Excess -6.0 mEq/L Barometric Pressure 745.3 mm/Hg Sodium (136-145) mmol/L Potassium (3.5-5.1) mmol/L Chloride (98-107) mmol/L Carbon Dioxide (21-32) mmol/L Anion Gap (3-11) BUN (7-18) mg/dl Creatinine (0.6-1.4) mg/dl Est Cr Clr Drug Dosing ml/min Est GFR ( Amer) ml/min Est GFR (Non-Af Amer) ml/min BUN/Creatinine Ratio (10-20) Glucose (70-99) mg/dl POC Glucose 533 H* (70-99) mg/dl Lactate (0.4-2.0) mmol/L Calcium (8.5-10.1) mg/dl Total Bilirubin (0.2-1) mg/dl AST (15-37) U/L ALT (12-78) Alkaline Phosphatase (45-117) U/L Troponin I (0-0.045) ng/ml Total Protein (6.4-8.2) gm/dl Albumin (3.4-5.0) gm/dl Globulin (2.5-4.0) gm/dl Albumin/Globulin Ratio (0.9-2) Lipase (73-393) U/L Beta-Hydroxybutyric Acd (0.2-2.81) mg/dl Urine Color Urine Appearance (Clear) Urine pH (4.5-7.5) Ur Specific Dragoon (1.000-1.030) Urine Protein (Negative) Urine Glucose (UA) (Negative) Urine Ketones (Negative) Urine Blood (Negative) Urine Nitrite (Negative) Urine Bilirubin (Negative) Urine Urobilinogen (Negative) Ur Leukocyte Esterase (Negative) 08/24/21 Range/Units 19:10 WBC (4.8-10.8) K/uL RBC (4.7-6.1) M/uL Hgb (14.0-18.0) g/dL Hct (42-52) % MCV (80-100) fL MCH (25-34) pg MCHC (32-36) g/dL RDW Std Deviation (36.4-46.3) fL RDW Coeff of Chan (11.5-14.5) % Plt Count (130-400) K/uL MPV (7.4-10.4) fL Immature Gran % (Auto) % Neut % (Auto) % Lymph % (Auto) % [place] % (Auto) % Eos % (Auto) % Baso % (Auto) % Neut # (Auto) (1.4-6.5) K/uL Lymph # (Auto) (1.2-3.4) K/uL [place] # (Auto) (0.11-0.59) K/uL Eos # (Auto) (0-0.5) K/uL Baso # (Auto) (0-0.2) K/uL Immature Gran # (Auto) (0.00-0.02) K/uL RBC Morphology PT (9.0-12.0) Seconds INR (0.9-1.1) VBG pH (7.36-7.41) VBG pCO2 (38-50) mmHg VBG pO2 mmHg VBG HCO3 mmol/L VBG O2 Saturation % VBG Base Excess mEq/L Barometric Pressure mm/Hg Sodium (136-145) mmol/L Potassium (3.5-5.1) mmol/L Chloride (98-107) mmol/L Carbon Dioxide (21-32) mmol/L Anion Gap (3-11) BUN (7-18) mg/dl Creatinine (0.6-1.4) mg/dl Est Cr Clr Drug Dosing ml/min Est GFR ( Amer) ml/min Est GFR (Non-Af Amer) ml/min BUN/Creatinine Ratio (10-20) Glucose (70-99) mg/dl POC Glucose (70-99) mg/dl Lactate (0.4-2.0) mmol/L Calcium (8.5-10.1) mg/dl Total Bilirubin (0.2-1) mg/dl AST (15-37) U/L ALT (12-78) Alkaline Phosphatase (45-117) U/L Troponin I (0-0.045) ng/ml Total Protein (6.4-8.2) gm/dl Albumin (3.4-5.0) gm/dl Globulin (2.5-4.0) gm/dl Albumin/Globulin Ratio (0.9-2) Lipase (73-393) U/L Beta-Hydroxybutyric Acd (0.2-2.81) mg/dl Urine Color Yellow Urine Appearance Clear (Clear) Urine pH 5.0 (4.5-7.5) Ur Specific Dragoon 1.022 (1.000-1.030) Urine Protein Negative (Negative) Urine Glucose (UA) 3+ H (Negative) Urine Ketones 3+ H (Negative) Urine Blood Negative (Negative) Urine Nitrite Negative (Negative) Urine Bilirubin Negative (Negative) Urine Urobilinogen Negative (Negative) Ur Leukocyte Esterase Negative (Negative) Administered Medications Insulin Human Regular 250 (units/ Sodium Chloride) 250 mls @ 8 mls/hr IV .Q24H COUNTS INCLUDE 234 BEDS AT THE [facility]; Protocol Stop: 09/23/21 19:59 Last Admin: 08/24/21 21:15 Dose: 8 units/hr, 8 mls/hr Documented by: [id number] Cosigned by: [id number] Vancomycin HCl 1,500 mg/ (Sodium Chloride) 530 mls @ 200 mls/hr IV NOW ONE Stop: 08/24/21 22:45 Last Admin: 08/24/21 21:15 Dose: 200 mls/hr Documented by: [id number] Discontinued Medications Sodium Chloride (Nss 1000ml) 1,000 mls @ 999 mls/hr IV .Q1H1M STA Stop: 08/24/21 19:42 Last Infusion: 08/24/21 19:50 Dose: 0 mls/hr Documented by: [id number] Admin: 08/24/21 18:49 Dose: 999 mls/hr Documented by: [id number] Cefepime HCl (Maxipime) 2,000 mg in 20 mls @ 5 mls/min IV NOW STA; Protocol Stop: 08/24/21 20:10 Last Admin: 08/24/21 20:35 Dose: 5 mls/min Documented by: [id number] Insulin Human Regular (Novolin-R Bolus From Bag) 8 units IV ONE ONE Stop: 08/24/21 20:31 Last Admin: 08/24/21 21:16 Dose: 8 units Documented by: [id number] Cosigned by: [id number] Imaging Data Radiologist's Impression: Chest X-Ray 08/24/21 19:14 XR chest 1V portable HISTORY: Weakness. COMPARISON: Chest 06/30/2021. FINDINGS: The cardiac silhouette remains normal in size. There are poststernotomy changes and an aortic valve prosthesis. No focal lung consolidations to suggest pneumonia. No evidence for pulmonary edema. No pleural effusions. No pneumothorax. IMPRESSION: No acute process. ACT 112: Negative or not required by law. Electronically signed by: Otf Avila M.D. 08/24/2021 8:04 PM Discharge Plan Visit Data Chief Complaint: Hyperglycemia Stated Complaint: Hyperglycemia ED Provider: Tyree Perry Discharge Problem: DKA (diabetic ketoacidosis) Forms Stand Alone Forms: My [facility] CLIPPATE Prescriptions Prescriptions: No Action atorvastatin [Lipitor] 80 mg tablet 80 mg PO HS Qty: 90 RF: 3 clopidogrel [Plavix] 75 mg tablet 75 mg PO QAM Qty: 30 RF: 5 metoprolol tartrate 25 mg tablet 12.5 mg PO BID Qty: 90 RF: 3 potassium chloride 20 mEq tablet extended release 20 meq PO BID Qty: 60 RF: 5 calcitriol [Rocaltrol] 0.25 mcg capsule 0.25 mcg PO QAM Qty: 30 RF: 5 pantoprazole [Protonix] 40 mg tablet,delayed release (DR/EC) 40 mg PO QAM Qty: 30 RF: 5 ferrous sulfate 325 mg (65 mg iron) tablet,delayed release (DR/EC) 325 mg PO BID Qty: 60 RF: 5 folic acid 1 mg tablet 1 mg PO QAM Qty: 30 RF: 5 (DME) Bed Side Commode Misc See Rx Instructions .Route Qty: 1 RF: 0 (DME) Commode rails round See Rx Instructions .Route .MEDSUPPLY Qty: 1 RF: 0 Adult 50 Plus Probiotic 4 billion cell capsule 4,000 mmu cells PO DAILY RF: 0 oxycodone 5 mg tablet 5 mg PO Q12H PRN (Reason: pain, moderate) Qty: 30 RF: 0 hydrocortisone [Proctosol HC] 2.5 % cream with perineal applicator 1 applic EXT BID 10 Days Qty: 30 RF: 1 levothyroxine [Synthroid] 175 mcg tablet 175 mcg PO QAM RF: 0 insulin aspart U-100 [Novolog U-100 Insulin aspart] 100 unit/mL solution 60 unit SQ CONT RF: 0 insulin aspart U-100 [Novolog Flexpen U-100 Insulin] 100 unit/mL (3 mL) Insulin Pen See Rx Instructions .ROUTE .COMPLEX Qty: 3 RF: 0 aspirin [Aspirin Low Dose] 81 mg tablet,delayed release (DR/EC) 81 mg PO QAM RF: 0 acetaminophen [Tylenol Extra Strength] 500 mg tablet 1,000 mg PO TID PRN (Reason: Pain) RF: 0 Referrals Referrals: Pablo Barros MD [Primary Care Provider] - Discharge Problem: DKA (diabetic ketoacidosis) Qualifiers: Diabetes mellitus type: other specified (including DEB) Diabetes mellitus complication detail: without coma Qualified Code(s): E13.10 - Other specified diabetes mellitus with ketoacidosis without coma
[2021-08-24 19:04] LABS: Hematocrit (blood only) 43.1 % (42-52); Hemoglobin 14.1 g/dL (14.0-18.0); Mean Corpuscular Hemoglobin 28.3 pg (25-34); Mean Corpuscular Hgb Conc 32.7 g/dL (32-36); Mean Corpuscular Volume 86.5 fL (80-100); Mean Platelet Volume 10.7 fL (7.4-10.4); Platelet Count 277 K/uL (130-400); RDW Coefficient of Variation 16.3 % (11.5-14.5); RDW Standard Deviation 51.8 fL (36.4-46.3); Red Blood Count 4.98 M/uL (4.7-6.1); White Blood Count 22.34 K/uL (4.8-10.8)
[2021-08-24 19:08] LABS: Oxygen Saturation VBG 75.9 %; pH VBG 7.34 (7.36-7.41)
[2021-08-24 19:13] LABS: INR 1.1 (0.9-1.1); Prothrombin Time 10.8 Seconds (9.0-12.0)
[2021-08-24 19:21] LABS: Basophils # (auto) 0.05 K/uL (0-0.2); Basophils % (auto) 0.2 %; Eosinophils % (auto) 0.4 %; Immature Granulocytes # (auto) 0.05 K/uL (0.00-0.02); Immature Granulocytes % (auto) 0.2 %; Lymphocytes # (auto) 1.24 K/uL (1.2-3.4); Lymphocytes % (auto) 5.6 %; Monocytes # (auto) 1.26 K/uL (0.11-0.59); Monocytes % (auto) 5.6 %; Neutrophils # (auto) 19.64 K/uL (1.4-6.5); RBC Morphology Unremarkable
[2021-08-24 19:21] LABS: Appearance Urine Clear (Clear); Bilirubin Urine Negative (Negative); Blood Urine Negative (Negative); Color Urine Yellow; Glucose Urine UA 3+ (Negative); Ketones Urine 3+ (Negative); Leukocyte Esterase Urine Negative (Negative); Nitrite Urine Negative (Negative); Protein Urine Negative (Negative); Specific Gravity Urine 1.022 (1.000-1.030); Urobilinogen Urine Negative (Negative)
[2021-08-24 19:52] LABS: Alanine Aminotransferase 33 (12-78); Albumin Globulin Ratio 0.7 (0.9-2); Albumin Level 3.2 gm/dl (3.4-5.0); Alkaline Phosphatase 186 U/L (45-117); Aspartate Aminotransferase 19 U/L (15-37); BUN Creatinine Ratio 20.1 (10-20); Bilirubin,Total 0.6 mg/dl (0.2-1); Blood Urea Nitrogen 23 mg/dl (7-18); Carbon Dioxide 21 mmol/L (21-32); Chloride 91 mmol/L (98-107); Creatinine Clr Calc Pharmacy 62.8 ml/min; Est GFR (African American) 77.5 ml/min; Est GFR (Non-African American) 66.9 ml/min; Globulin 4.7 gm/dl (2.5-4.0); Glucose 568 mg/dl (70-99); Lipase 81 U/L (73-393); Potassium 4.3 mmol/L (3.5-5.1); Sodium 127 mmol/L (136-145); Total Protein 7.9 gm/dl (6.4-8.2); Troponin I < 0.015 ng/ml (0-0.045)
[2021-08-24] MEDS ORDERED: STAT IV Infusion **Titration per Protocol STA ×2 (19:54→21:17)
[2021-08-24] MEDS ORDERED: DKA GOAL RANGE 150-250 mg/dl ONE (19:54)
[2021-08-24] MEDS ORDERED: INSULIN REGULAR 250 UNITS in SODIUM CHLORIDE 0.9% 247.5 ML IV SCH (20:00)
--- NOTE | 2021-08-24 20:05 | XRay Report ---
XR chest 1V portable HISTORY: Weakness. COMPARISON: Chest 06/30/2021. FINDINGS: The cardiac silhouette remains normal in size. There are poststernotomy changes and an aort ic valve prosthesis. No focal lung consolidations to suggest pneumonia. No evidence for pulmonary tahira ma. No pleural effusions. No pneumothorax. IMPRESSION: No acute process. ACT 112: Negative or not required by law. Electronically signed by: Otf Avila M.D. 08/24/2021 8:04 PM
[2021-08-24] MEDS ORDERED: CEFEPIME 2,000 MG/20 ML VIAL IV STA (20:07)
[2021-08-24] MEDS ORDERED: VANCOMYCIN CONSULT ACTIVE PRN (20:07)
[2021-08-24] MEDS ORDERED: VANCOMYCIN HCL 1,500 MG in SODIUM CHLORIDE 0.9% 500 ML IV ONE (20:07)
[2021-08-24] MEDS ORDERED: NovoLIN-R BOLUS FROM BAG IV ONE (20:30)
--- NOTE | 2021-08-24 20:41 | History & Physical Report ---
Date of Service August 24, 2021 Assessment & Plan (1) Diabetic ketoacidosis: Plan: The patient will require admission to the hospital proceeding as follows: We will initiate an insulin drip via the DKA protocol and obtain a glycemic consult via pharmacy I suspect that the patient's DKA may have been triggered by insulin pump malfunction/dislodgment as noted in the HPI. However, we have not ascertain if patient has any other underlying infectious etiology and will evaluate for this by checking stool studies due to history of C. difficile and also checking for Covid infection as he has had an exposure to this. We will would also be prudent to check blood cultures due to his history of positive blood cultures in June of this year. There is no evidence of urinary tract infection by UA and there is no evidence of pneumonia on chest x-ray. Her goal we will get the patient back on his insulin pump that he utilizes at home prior to discharge. (2) Diarrhea: Plan: Due to patient's history of C. difficile we will check stool to see if he has an active C. difficile infection and treat accordingly if this is present (3) Aortic stenosis: Plan: Patient has a history of aortic valve replacement Most recent echo available for review was from June 2021 that showed a 65% ejection fraction and a well-seated aortic valve prosthesis with a normal gradient (4) Wound of left foot: Plan: Continue local wound care We will consult wound care nurse (5) CAD (coronary artery disease): Plan: Maintain the patient on his home medications including Lipitor, Plavix, aspirin, and metoprolol (6) PVD (peripheral vascular disease): Plan: Maintain the patient on his home dose of Lipitor and home dose of Plavix and aspirin (7) Hypothyroidism: Plan: Maintain the patient on his home dose of Synthroid (8) Hypertension: Plan: Maintain patient on his home dose of metoprolol (9) Dyslipidemia: Plan: Maintain the patient on his home doses of Lipitor History of Present Illness Chief Complaint: Hyperglycemia/DKA Primary Care Provider: Pablo Barros MD There is a 66-year-old male who presented to [facility] secondary to hyperglycemia. Patient notes that he was in his usual state of health feeling fine this morning. The patient reports that he is an insulin- dependent diabetic and he has been so since age 23. He currently utilizes an insulin pump. Patient says he changed his shirt this afternoon around 2:00 PM. He noted approximately 1.5 hours later he developed some generalized aches. He notes that he has had episodes of hyperglycemia in the past and had aches similar to this so he checked his sugar and it was greater than 500. He checked his insulin pump and feels that it may have become dislodged and was not working correctly after changing his shirt. Over the next hour he checked his glucose 2 more times in the reading on his glucometer read "high" which the patient says is an indication that his sugar was greater than 200. He also notes that he summoned EMS to take him to the hospital where he had his glucose checked again with the glucometer again reading "high." Other than generalized aches the patient does not have any other complaints. I question the patient on other symptoms in search of any other inciting factors that may have caused hyperglycemia. He denies any cough or shortness of breath. He also denies any fevers, shakes, chills. Patient says that he has received 2 Covid vaccines and he believes the second 1 that was in December 2020. He has not yet received the booster. He said he was exposed to Covid by a visiting nurse but he was quarantined and cleared few days ago. The patient has not lost his sense of smell or taste. He denies any abdominal pain. He denies any nausea vomiting. He denies any dysuria or polyuria. The patient has a right below- knee amputation that he says is healing well. He does have 1 open sore on his left great toe that is from a blood blister that popped 1 or 2 days ago. He says he is putting Betadine and gauze on this. The patient does report that he has been having some loose bowel movements and he does have a history of C. difficile. The patient's records were reviewed and as noted he is an insulin-dependent diabetic. He is followed by Dr. Barros. Patient's most recent hemoglobin A1c was in July 01, 2021 which was 8.7. Patient says he does get regular ophthalmologic exams. His most recent visit was on 06/07/2021 where there were no signs of diabetic retinopathy. Patient has known peripheral vascular disease and has had a left lower extremity peripheral bypass. He has also had his left fifth toe amputated. In addition the patient had osteomyelitis and gangrene of his right lower extremity requiring a below-knee amputation in June of this year. Concerning previous infectious etiologies the patient's records were reviewed and he was noted to have a Pseudomonas infection of the right lower extremity resulting in gangrene and osteomyelitis. As noted above he has since had a right below-knee amputation. Patient has had blood cultures checked and his most recent blood cultures that were positive were in June 2021 where he was noted to have Enterococcus. In addition the patient developed C. difficile infection in May of this year and he was treated with oral vancomycin. Since admission to the emergency department today the patient has had labs and imaging which independent reviewed. He has had a chest x-ray performed that showed no evidence of pleural effusion or pneumonia. Labs were performed were CBC revealed white blood cell count was elevated at 22.3. His hemoglobin and hematocrit were normal. Platelet count was noted to be normal. Coagulation studies were normal. He had a venous blood gas with pH was noted to be 7.34. Chemistry profile showed sodium was 127. His potassium was normal. His BUN was elevated at 23 but his creatinine was noted to be within normal range. A gluc ose level was checked and was noted to be 568. Lactic acid level was noted to be normal and a calcium was also noted to be normal. There were no significant elevation of LFTs. The patient's lipase was noted to be normal. Urinalysis was not indicative of infection. A Covid test has been performed and is pending. An EKG was performed and this did show normal sinus rhythm with a right bundle branch block and findings consistent with an inferior infarct. When compared to prior EKGs there is no change noted. Cardiac enzymes were checked and were not elevated. The treating emergency room physician has initiated an insulin drip and has placed the patient on broad-spectrum antibiotics in the form of vancomycin and cefepime due to concern for underlying infection that may have triggered his DKA. At the time of my interview the patient was resting comfortably in bed he was in no distress. Allergies Allergy/AdvReac Type Severity Reaction Status Date / Time No Known Allergies Allergy Unknown Verified 08/24/21 19:14 Home Medications Medication Instructions Recorded Confirmed Type atorvastatin 80 mg tablet (Lipitor) 80 mg PO HS #90 tab 11/25/20 08/24/21 Rx clopidogrel 75 mg tablet (Plavix) 75 mg PO QAM #30 tab 01/28/21 08/24/21 Rx metoprolol tartrate 25 mg tablet 12.5 mg PO BID #90 tab 02/09/21 08/24/21 Rx potassium chloride 20 mEq 20 meq PO BID #60 tab 02/22/21 08/24/21 Rx tablet,extended release calcitriol 0.25 mcg capsule 0.25 mcg PO QAM #30 cap 04/27/21 08/24/21 Rx (Rocaltrol) aspirin 81 mg tablet,delayed 81 mg PO QAM 05/04/21 08/24/21 History release (Aspirin Low Dose) hydrocortisone 2.5 % topical cream 1 applic EXT BID 10 Days #30 g 05/20/21 08/24/21 Rx with perineal applicator (Proctosol HC) pantoprazole 40 mg tablet,delayed 40 mg PO QAM #30 tab 06/15/21 08/24/21 Rx release (Protonix) insulin aspart U-100 100 unit/mL 60 unit SQ CONT 06/30/21 08/24/21 History subcutaneous solution (Novolog U-100 Insulin aspart) levothyroxine 175 mcg tablet 175 mcg PO QAM 06/30/21 08/24/21 History (Synthroid) insulin aspart U-100 100 unit/mL See Rx Instructions .ROUTE 07/14/21 08/24/21 Rx (3 mL) subcutaneous pen (Novolog .COMPLEX #3 ml Flexpen U-100 Insulin aspart) acetaminophen 500 mg tablet 1,000 mg PO TID PRN 08/02/21 08/24/21 History (Tylenol Extra Strength) ferrous sulfate 325 mg (65 mg 325 mg PO BID #60 tab 08/03/21 08/24/21 Rx iron) tablet,delayed release folic acid 1 mg tablet 1 mg PO QAM #30 tab 08/03/21 08/24/21 Rx lactobacillus combination no.9 4 4,000 mmu cells PO DAILY 08/04/21 08/24/21 History billion cell capsule (Adult 50 Plus Probiotic) oxycodone 5 mg tablet 5 mg PO Q12H PRN #30 tab 08/04/21 08/24/21 Rx Bed Side Commode #1 ea 08/09/21 Rx Commode rails #1 ea 08/10/21 Rx Past Med/Surg History Medical History Aortic stenosis s/p porcine valve replacement (2016) with CABG x 1 CAD (coronary artery disease) s/p CABG x 1 (2016) CKD (chronic kidney disease) stage 2, GFR 60-89 ml/min Clostridium difficile infection CURRENTLY TX FLAG[place] Diabetes mellitus type 1 + Insulin pump Diabetic nephropathy associated with type 1 diabetes mellitus Dyslipidemia GERD (gastroesophageal reflux disease) Hypertension Hypothyroidism Insulin pump in place Osteoarthritis Osteoporosis Proliferative diabetic retinopathy associated with type 1 diabetes mellitus PVD (peripheral vascular disease) s/p B/L iliac artery stents (2014), R common/external iliac (2017), R common femoral endarterectomy (11/2018) with bovine patch. Left femoral to PT composite bypass graft (06/2020) VRE infection (vancomycin resistant enterococcus), with multi-drug resistance Surgical History Below-knee amputation of right lower extremity RETURNED HOME FROM [facility] 07/30/21 H/O cataract extraction R/L H/O endarterectomy R common femoral (11/2018) H/O vascular surgery Right Femoral to Posterior tibial Prosthetic Bypass Graft(Right) History of ankle surgery LEFT ANKLE +HARDWARE REMOVED History of aortic valve replacement 2016 ([facility]) History of arterial bypass of lower extremity Left femoral to PT composite bypass graft (06/2020) History of cardiac cath x2, most recent 2016 > no stents (subsequent CABG with AVR in 2016) History of carpal tunnel release R/L History of colonoscopy History of coronary artery bypass graft CABG x1 + AVR (2016) History of esophagogastroduodenoscopy (EGD) History of myringotomy History of open reduction and internal fixation (ORIF) procedure LLE () History of skin graft Split Thickness Skin Graft of Left Lateral Ankle (11/18/20): LMA#5, atraumatic x1 at [facility] History of tonsillectomy History of tooth extraction History of umbilical hernia repair Hx of surgical procedure Left Leg Wound Debridement and Irrigation S/P femoropopliteal bypass surgery Right fem-pop bypass graft (01/19/21): Grade 2 view, MAC 3.0, ETT 8.0 at [facility] S/P insertion of iliac artery stent B/L iliac stent placement (2014) 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 Family History Brother Family history of diabetes mellitus Sister Family history of diabetes mellitus Mother Family history of diabetes mellitus Grandmother (Maternal) Family history of diabetes mellitus Uncle Family hx of colon cancer Colorectal cancer Father Family history of esophageal cancer Sister Family history of diabetes mellitus Other No family history of adverse response to anesthesia Denies family history of Ovarian cancer Prostate cancer Myocardial infarction Breast cancer Social History Smoking Status: Never smoker Tobacco Type: Cigarettes and Smokeless Tobacco (Dip or Chew) Cigarettes Per Day: Quit 15 years ago; Second Hand Exposure: No; Hx Alcohol Use: Yes Alcohol type: beer Alcohol Intake Frequency: Monthly or Less Preferred Language: [place] Communication Ability: Effective Visual Impairment: No Limitations Hearing Ability: Normal District Gauger Required: No Beliefs That Will Affect Care: None marital status: Current Living Situation: Other Current Living Situation Comment: LIVES WITH [facility] [address] How many Children do You have: 2 Feels Safe at Home: Yes Childhood Exposure to Second-Hand Smoke: Yes Diet Comment: Carb Counts. ([id number], roughly), protein drinks caffeine: Yes (coffee, rarely ) during the past year weight has: remained stable Dental Care, Regularly: No Physical Activity Frequency: 1-2 Times per Week Seatbelt Use: always Sunscreen Use: No Gender Identity: Male Assistive Devices: Denture - Upper, Glasses, Walker and Wheelchair Review of Systems Constitutional: + body aches; no fever, no chills and no sweats Eyes: no blind spots and no diplopia Ear, Nose, Mouth, Throat: no ear pain and no sore throat Respiratory: no cough and no dyspnea Cardiovascular: no chest pain Gastrointestinal: + diarrhea/loose stools; no abdominal pain, no nausea and no vomiting Genitourinary: no dysuria, no urinary frequency or no flank pain Musculoskeletal: no back pain Integumentary: no rash Neurologic: no localized weakness Physical Exam Constitutional: well developed and well nourished; no acute distress Eyes: no conjunctival abnormality ENMT: Ears: no external ear abnormality Mucous membranes of the oropharynx are dry Neck: trachea midline Respiratory: normal respiratory effort; no respiratory distress and no labored breathing Cardiovascular: Rate/Rhythm: regular rate and regular rhythm Gastrointestinal (Abdomen): Abdomen is soft, nondistended, and nontender to palpation. Bowel sounds are present. Musculoskeletal: Patient has a right below-knee amputation. There is an orthopedic brace in place and this is wrapped with a dressing. The patient's left lower extremity has some longitudinal incisions on the medial aspect consistent with prior surgical intervention. I was unable to palpate pedal pulses but his foot was not mottled. Patient had a open blood blister on the medial aspect of his great toe. There is no malodorous discharge. Patient had evidence of a prior left fifth toe amputation which was well-healed. Skin: no rashes Neurologic: moves all extremities Results & Data Results & Data ([facility]) Vital Signs (Past 12 Hours) Vital Signs Temp Pulse Resp BP Pulse Ox 08/24/21 18:44 99 08/24/21 18:30 37.2 C 85 14 144/76 H 98 Laboratory Results Laboratory Results WBC 22.34 K/uL (4.8-10.8) H 08/24/21 18:42 RBC 4.98 M/uL (4.7-6.1) 08/24/21 18:42 Hgb 14.1 g/dL (14.0-18.0) 08/24/21 18:42 Hct 43.1 % (42-52) 08/24/21 18:42 MCV 86.5 fL (80-100) 08/24/21 18:42 MCH 28.3 pg (25-34) 08/24/21 18:42 MCHC 32.7 g/dL (32-36) 08/24/21 18:42 RDW Std Deviation 51.8 fL (36.4-46.3) H 08/24/21 18:42 RDW Coeff of Chan 16.3 % (11.5-14.5) H 08/24/21 18:42 Plt Count 277 K/uL (130-400) 08/24/21 18:42 MPV 10.7 fL (7.4-10.4) H 08/24/21 18:42 Immature Gran % (Auto) 0.2 % 08/24/21 18:42 Neut % (Auto) 88.0 % 08/24/21 18:42 Lymph % (Auto) 5.6 % 08/24/21 18:42 Callahan % (Auto) 5.6 % 08/24/21 18:42 Eos % (Auto) 0.4 % 08/24/21 18:42 Baso % (Auto) 0.2 % 08/24/21 18:42 Neut # (Auto) 19.64 K/uL (1.4-6.5) H 08/24/21 18:42 Lymph # (Auto) 1.24 K/uL (1.2-3.4) 08/24/21 18:42 Callahan # (Auto) 1.26 K/uL (0.11-0.59) H 08/24/21 18:42 Eos # (Auto) 0.10 K/uL (0-0.5) 08/24/21 18:42 Baso # (Auto) 0.05 K/uL (0-0.2) 08/24/21 18:42 Immature Gran # (Auto) 0.05 K/uL (0.00-0.02) H 08/24/21 18:42 RBC Morphology Unremarkable 08/24/21 18:42 PT 10.8 Seconds (9.0-12.0) 08/24/21 18:42 INR 1.1 (0.9-1.1) 08/24/21 18:42 VBG pH 7.34 (7.36-7.41) L 08/24/21 18:54 VBG pCO2 36 mmHg (38-50) L 08/24/21 18:54 VBG pO2 44 mmHg 08/24/21 18:54 VBG HCO3 19 mmol/L 08/24/21 18:54 VBG O2 Saturation 75.9 % 08/24/21 18:54 VBG Base Excess -6.0 mEq/L 08/24/21 18:54 Barometric Pressure 745.3 mm/Hg 08/24/21 18:54 Sodium 127 mmol/L (136-145) L 08/24/21 18:42 Potassium 4.3 mmol/L (3.5-5.1) 08/24/21 18:42 Chloride 91 mmol/L (98-107) L 08/24/21 18:42 Carbon Dioxide 21 mmol/L (21-32) 08/24/21 18:42 Anion Gap 15.0 (3-11) H 08/24/21 18:42 BUN 23 mg/dl (7-18) H 08/24/21 18:42 Creatinine 1.15 mg/dl (0.6-1.4) 08/24/21 18:42 Est Cr Clr Drug Dosing 62.8 ml/min 08/24/21 18:42 Est GFR ( Amer) 77.5 ml/min 08/24/21 18:42 Est GFR (Non-Af Amer) 66.9 ml/min 08/24/21 18:42 BUN/Creatinine Ratio 20.1 (10-20) H 08/24/21 18:42 Glucose 568 mg/dl (70-99) H* 08/24/21 18:42 POC Glucose 296 mg/dl (70-99) H 08/24/21 23:16 Lactate 1.5 mmol/L (0.4-2.0) 08/24/21 18:42 Calcium 10.0 mg/dl (8.5-10.1) 08/24/21 18:42 Total Bilirubin 0.6 mg/dl (0.2-1) 08/24/21 18:42 AST 19 U/L (15-37) 08/24/21 18:42 ALT 33 (12-78) 08/24/21 18:42 Alkaline Phosphatase 186 U/L (45-117) H 08/24/21 18:42 Troponin I < 0.015 ng/ml (0-0.045) 08/24/21 18:42 Total Protein 7.9 gm/dl (6.4-8.2) 08/24/21 18:42 Albumin 3.2 gm/dl (3.4-5.0) L 08/24/21 18:42 Globulin 4.7 gm/dl (2.5-4.0) H 08/24/21 18:42 Albumin/Globulin Ratio 0.7 (0.9-2) L 08/24/21 18:42 Lipase 81 U/L (73-393) 08/24/21 18:42 Beta-Hydroxybutyric Acd mg/dl (0.2-2.81) 08/24/21 18:42 Urine Color Yellow 08/24/21 19:10 Urine Appearance Clear (Clear) 08/24/21 19:10 Urine pH 5.0 (4.5-7.5) 08/24/21 19:10 Ur Specific [place] 1.022 (1.000-1.030) 08/24/21 19:10 Urine Protein Negative (Negative) 08/24/21 19:10 Urine Glucose (UA) 3+ (Negative) H 08/24/21 19:10 Urine Ketones 3+ (Negative) H 08/24/21 19:10 Urine Blood Negative (Negative) 08/24/21 19:10 Urine Nitrite Negative (Negative) 08/24/21 19:10 Urine Bilirubin Negative (Negative) 08/24/21 19:10 Urine Urobilinogen Negative (Negative) 08/24/21 19:10 Ur Leukocyte Esterase Negative (Negative) 08/24/21 19:10 Stl C. cayetanensis PCR Not Detected (NotDetected) 08/24/21 21:20 Stool Rotavirus A PCR Not Detected (NotDetected) 08/24/21 21:20 Stl Adenov F 40/41 PCR Not Detected (NotDetected) 08/24/21 21:20 Stool Astrovirus (PCR) Not Detected (NotDetected) 08/24/21 21:20 Stool Campylobacter PCR Not Detected (NotDetected) 08/24/21 21:20 Stl C.difficile Tox A&B Positive Cdiff Toxin (Negative) A* 08/24/21 21:20 Stl C. diff Tox A/B PCR C.diff Gene Detected (NotDetected) A 08/24/21 21:20 Stool Cryptosporidium PCR Not Detected (NotDetected) 08/24/21 21:20 Stl E.coli Shiga Tox PCR Not Detected (NotDetected) 08/24/21 21:20 Stl Enterotoxigenic E PCR Not Detected (NotDetected) 08/24/21 21:20 Stool EPEC (PCR) Not Detected (NotDetected) 08/24/21 21:20 Stool EAEC (PCR) Not Detected (NotDetected) 08/24/21 21:20 Stl E. histolytica PCR Not Detected (NotDetected) 08/24/21 21:20 Stool Giardia Lamblia PCR Not Detected (NotDetected) 08/24/21 21:20 Stool Salmonella PCR Not Detected (NotDetected) 08/24/21 21:20 Stool Sapovirus (PCR) Not Detected (NotDetected) 08/24/21 21:20 Stl P. shigelloides PCR Not Detected (NotDetected) 08/24/21 21:20 Stl Shigella/EIEC PCR Not Detected (NotDetected) 08/24/21 21:20 St Y.enterocolitica PCR Not Detected (NotDetected) 08/24/21 21:20 Stool Vibrio (PCR) Not Detected (NotDetected) 08/24/21 21:20 Stl Vibrio cholerae PCR Not Detected (NotDetected) 08/24/21 21:20 Stl Norovirus GI/GII PCR Not Detected (NotDetected) 08/24/21 21:20 SARS-CoV-2, RNA, NAAT NEGATIVE (NEGATIVE) 08/24/21 21:35 Impressions Chest X-Ray 08/24/21 19:14 XR chest 1V portable HISTORY: Weakness. COMPARISON: Chest 06/30/2021. FINDINGS: The cardiac silhouette remains normal in size. There are poststernotomy changes and an aortic valve prosthesis. No focal lung consolidations to suggest pneumonia. No evidence for pulmonary edema. No pleural effusions. No pneumothorax. IMPRESSION: No acute process. ACT 112: Negative or not required by law. Electronically signed by: Otf Avila M.D. 08/24/2021 8:04 PM Code Status & VTE Plan Code Status We will utilize Lovenox for DVT prevention I discussed CODE STATUS with the patient and he notes an event of cardiopulmonary arrest he wishes to be a level 1 full code Supervising Physician Co-Signing Physician Notes Patient seen and examined, chart reviewed, case discussed with ANDRES Hill and I agree with the documentation as above. In brief, patient is Type I diabetic presenting with hyperglycemia, mild DKA. Patient thinks he may have dislodged his insulin pump tubing this afternoon while changing his shirt. His blood sugars were subsequently elevated >500 and he had some body aches. Patient took 10u Novolog and 5u of Lantus. EMS called. He has a mild anion gap metabolic acidosis with pH=7.34, Gap=15, BAB=457 On exam he is afebrile, HD stable, nontoxic in appearance Skin - intact, small blood blister on foot HEENT - MMM, Neck supple Heart - +S1/S2, regular, 3/6 POLO across precordium Lungs - CTA Abd - +BS, soft, NT/ND Ext- s/p R BKA Neuro - nonfocal Labs and images reviwed. pH and AG as above. Additionally patient has WBC=22.34 Stool is POSITIVE for C. diff toxin and gene indicating current infection. Patient does endorse loose stools as well. Assessment/Plan - Mild DKA with AG=15, DSK=100, pH=7.34 in Type I DM with recent malfunction of insulin pump. Also with underlying c. diff infection most likely contributing. 8u regular insulin IV and gtt started in ER per DKA protocol. Will continue this management with labs q4. K=4.3 prior to insulin gtt initiation C. diff - patient with prior history of c.diff s/p treatment with Vancomycin. He is nontoxic - WBC >15K suggestive of severe disease. Will DC additional antibiotics. Tx with Vancomycin with taper. Repeat CBC in AM Remainder of plan as above PG Care Time/CCT Total # of Minutes Spent Total Time Spent with Patient: Total time spent is greater than 50% in coordination of care (as documented) at patient's floor/unit and/or counseling patient: Coding Level of Care Code 25955 Initial Inpt Care Lvl 3 Diagnoses Diabetic ketoacidosis E11.10 Diarrhea R19.7 Aortic stenosis I35.0 Wound of left foot S91.302A CAD (coronary artery disease) I25.10 Associated angina: without angina Coronary Disease-Associated Artery/Lesion type: [place] artery [place] vs. transplanted heart: [place] heart PVD (peripheral vascular disease) I73.9 Hypothyroidism E03.9 Hypothyroidism type: unspecified Hypertension I10 Hypertension type: unspecified Dyslipidemia E78.5 (1) CAD (coronary artery disease) Associated angina: without angina Coronary Disease-Associated Artery/Lesion type: [place] artery [place] vs. transplanted heart: [place] heart Qualified Code(s): I25.10 - Atherosclerotic heart disease of [place] coronary artery without angina pectoris (2) Hypothyroidism Hypothyroidism type: unspecified Qualified Code(s): E03.9 - Hypothyroidism, unspecified (3) Hypertension Hypertension type: unspecified Qualified Code(s): I10 - Essential (primary) hypertension
[2021-08-24 22:43] LABS: Adenovirus F 40/41 PCR Not Detected (NotDetected); Astrovirus PCR Not Detected (NotDetected); Campylobacter PCR Not Detected (NotDetected); Cryptosporidium PCR Not Detected (NotDetected); Cyclospora cayetanensis PCR Not Detected (NotDetected); Entamoeba histolytica PCR Not Detected (NotDetected); Enteroaggregative E.coli(EAEC) Not Detected (NotDetected); Enteropathogenic E.coli (EPEC) Not Detected (NotDetected); Enterotoxigenic E.coli (ETEC) Not Detected (NotDetected); Giardia lamblia PCR Not Detected (NotDetected); Norovirus GI/GII PCR Not Detected (NotDetected); Plesiomonas shigelloides PCR Not Detected (NotDetected); Rotavirus A PCR Not Detected (NotDetected); Salmonella PCR Not Detected (NotDetected); Sapovirus PCR Not Detected (NotDetected); Shiga-like Toxin E.coli (STEC) Not Detected (NotDetected); Shigella/Enteroinvasive E.coli Not Detected (NotDetected); Vibrio cholerae PCR Not Detected (NotDetected); Vibrio species PCR Not Detected (NotDetected); Yersinia enterocolitica PCR Not Detected (NotDetected)
[2021-08-24 23:10] LABS: Cdiff Antigen Negative
[2021-08-24 23:11] LABS: Cdiff Toxin A+B Positive Cdiff Toxin (Negative)
[2021-08-25] MEDS ORDERED: LACTATED RINGER'S 1,000 ML IV SCH (00:33)
[2021-08-25] MEDS ORDERED: oxyCODONE HCL IR 5 MG TAB (IMMEDIATE RELEASE) PO PRN (00:33)
[2021-08-25] MEDS ORDERED: PENDING 1/2NSS+40mEq KCL IVF SCH (00:33)
[2021-08-25] MEDS ORDERED: STAT IV Infusion **Titration per Protocol STA (00:51)
[2021-08-25] MEDS ORDERED: ACETAMINOPHEN 500 MG TAB PO PRN (00:55)
[2021-08-25] MEDS ORDERED: POTASSIUM CHLORIDE 40 MEQ in SODIUM CHLORIDE 0.45 % 1,000 ML IV SCH (01:00)
[2021-08-25] MEDS ORDERED: SODIUM CHLOR 0.45% + 20MEQ KCL 20 MEQ/1,000 ML BAG IV SCH (01:00)
[2021-08-25] MEDS ORDERED: PENDING D5 1/2NS+40mEq KCL IVF SCH (01:00)
[2021-08-25] MEDS ORDERED: GLUCOSE 10 TABS/TUBE PO PRN (01:00)
[2021-08-25] MEDS ORDERED: DEXTROSE 50% 50 ML SYRINGE IV PRN (01:00)
[2021-08-25] MEDS ORDERED: GLUCAGON FOR INJ 1 MG VIAL IM PRN (01:00)
[2021-08-25] MEDS ORDERED: GLUCOSE 40% GEL 15 GM TUBE PO PRN (01:00)
[2021-08-25] MEDS ORDERED: CARBOHYDRATES FOR HYPOGLYCEMIA PO PRN (01:00)
[2021-08-25] MEDS: VANCOMYCIN HCL 250 MG/5 ML SOLN PO SCH ×4 (01:26→19:40)
[2021-08-25] MEDS: RASPBERRY SYRUP 5 ML UDP PO SCH ×4 (01:26→19:40)
[2021-08-25 01:32] LABS: BUN Creatinine Ratio 19.5 (10-20); Calcium 9.2 mg/dl (8.5-10.1); Est GFR (African American) 97.7 ml/min; Est GFR (Non-African American) 84.3 ml/min; Phosphorus 2.2 mg/dl (2.5-4.9); Potassium 3.6 mmol/L (3.5-5.1)
[2021-08-25 02:01] LABS: Magnesium 1.6 mg/dl (1.8-2.4)
[2021-08-25] MEDS: POTASSIUM CHLORIDE 40 MEQ in D5W AND 1/2NSS 1,000 ML IV SCH ×2 (02:53→10:20)
[2021-08-25 05:06] LABS: BUN Creatinine Ratio 20.3 (10-20); Calcium 9.4 mg/dl (8.5-10.1); Creatinine Clr Calc Pharmacy 90.3 ml/min; Est GFR (African American) 109.4 ml/min; Est GFR (Non-African American) 94.4 ml/min; Magnesium 1.6 mg/dl (1.8-2.4); Phosphorus 2.6 mg/dl (2.5-4.9); Potassium 3.6 mmol/L (3.5-5.1)
[2021-08-25] MEDS: LEVOTHYROXINE SODIUM 175 MCG TABLET PO SCH (06:21)
[2021-08-25] MEDS: METOPROLOL TARTRATE 25 MG TAB PO SCH ×2 (08:12→21:22)
[2021-08-25] MEDS: ASPIRIN 81 MG ECTAB PO SCH (08:14)
[2021-08-25] MEDS: ADVANCED PROBIOTIC 1250 MG CAPSULE PO SCH (08:14)
[2021-08-25] MEDS: CLOPIDOGREL BISULFATE 75 MG TAB PO SCH (08:14)
[2021-08-25] MEDS: FERROUS SULFATE 325 MG TAB PO SCH ×2 (08:15→21:22)
[2021-08-25] MEDS: PANTOprazole 40 MG TAB PO SCH (08:15)
[2021-08-25] MEDS: CALCITRIOL 0.25 MCG CAPSULE PO SCH (08:15)
[2021-08-25] MEDS: FOLIC ACID 1 MG TAB PO SCH (08:15)
--- NOTE | 2021-08-25 08:36 | Hospitalist Progress Note ---
Date of Service August 25, 2021 Assessment & Plan (1) DKA (diabetic ketoacidosis): (2) Clostridium difficile infection: (3) Aortic stenosis: (4) History of aortic valve replacement: (5) Wound of left foot: (6) CAD (coronary artery disease): (7) PVD (peripheral vascular disease): (8) Hypertension: (9) Dyslipidemia: (10) Hypothyroidism: (11) Below-knee amputation of right lower extremity: (12) Magnesium deficiency: Plan: Diabetic ketoacidosis: Plan: The patient will require admission to the hospital proceeding as follows: We will initiate an insulin drip via the DKA protocol and obtain a glycemic consult via pharmacy I suspect that the patient's DKA may have been triggered by insulin pump malfunction/dislodgment as noted in the HPI. However, we have not ascertain if patient has any other underlying infectious etiology and will evaluate for this by checking stool studies due to history of C. difficile and also checking for Covid infection as he has had an exposure to this. We will would also be prudent to check blood cultures due to his history of positive blood cultures in June of this year. There is no evidence of urinary tract infection by UA and there is no evidence of pneumonia on chest x-ray. blood cultures pending Improving, restarting insulin pump Diabetic management Transitioning to p.o. diet discontinue IV fluids Return to outpatient insulin schedule Pharmacy consultation 2. C diff/ Diarrhea: Plan: Due to patient's history of C. difficile we will check stool to see if he has an active C. difficile infection and treat accordingly if this is present scheduled for GI evaluation in 3 weeks 2-3 episodes of nonbloody BMs reported outside of the hospital 3-4 Aortic stenosis: Plan: Patient has a history of aortic valve replacement Most recent echo available for review was from June 2021 that showed a 65% ejection fraction and a well-seated aortic valve prosthesis with a normal gradient 5. Wound of left foot: Plan: Continue local wound care We will consult wound care nurse 6-8 CAD (coronary artery disease) /hypertension/ peripheral vascular disease Plan: Maintain the patient on his home medications including Lipitor, Plavix, aspirin, and metoprolol 9. Dyslipidemia continue atorvastatin 10. Hypothyroidism continue levothyroxine 175 mcg daily 11. below-knee amputation of right lower extremity currently in outpatient wrap and brace. Consultation to Orthopedics if the patient has extended stay, scheduled for orthopedic out patient visit 12. replete with magnesium 400mg daily., monitor for symptoms of abdominal pain or increase in diarrhea Admission and Anticipated Discharge Date Admission Date: August 24, 2021 Subjective Patient is feeling better this morning Drinking fluids, would like to consider eating lunch. No nausea vomiting diarrhea Treatment for C diff chronic at home generally having 2-3 bowel movements daily No fevers chills chest pain dyspnea or palpitations One bowel movement this a.m. 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 He was checking his blood sugars at home this worsened in complicated current DKA episode. Review of Systems Constitutional: no fever and no chills Respiratory: no cough, no chest congestion, no dyspnea and no wheezing Cardiovascular: no chest pain, no palpitations and no edema Gastrointestinal: no abdominal pain, no heartburn, no nausea, no vomiting and no change in bowel habits Neurologic: no gait abnormality, no falls and no headache(s) Physical Exam 2 Physical Exam: Constitutional: WD/WN, vitals as above Respiratory: Effort normal, CTA B/L CV: RRR, no murmur, no edema Abdomen: normal bowel sounds, soft, nontender, no hepatosplenomegaly Neurologic: Normal gait Results & Data Results & Data ([facility]) Vital Signs (Past 12 Hours) Vital Signs Temp Pulse Pulse Resp BP BP Pulse Ox 08/25/21 07:40 70 17 111/58 L 96 08/25/21 06:06 36.6 C 74 13 114/63 98 08/25/21 05:00 72 16 121/61 99 08/25/21 03:09 72 12 133/65 97 08/25/21 01:39 37.0 C 76 16 129/59 L 94 08/25/21 01:38 76 16 129/59 L 94 08/25/21 00:55 81 16 136/83 95 08/24/21 23:37 75 13 138/57 L 95 08/24/21 22:00 78 16 118/64 98 08/24/21 21:30 80 18 98 08/24/21 21:00 87 18 99 Laboratory Results Laboratory Results - last 24 hr 08/24/21 08/24/21 08/24/21 18:42 18:42 18:42 WBC RBC Hgb Hct MCV MCH MCHC RDW Std Deviation RDW Coeff of Chan Plt Count MPV Immature Gran % (Auto) Neut % (Auto) Lymph % (Auto) [place] % (Auto) Eos % (Auto) Baso % (Auto) Neut # (Auto) Lymph # (Auto) [place] # (Auto) Eos # (Auto) Baso # (Auto) Immature Gran # (Auto) RBC Morphology PT 10.8 INR 1.1 VBG pH VBG pCO2 VBG pO2 VBG HCO3 VBG O2 Saturation VBG Base Excess Barometric Pressure Sodium 127 L Potassium 4.3 Chloride 91 L Carbon Dioxide 21 Anion Gap 15.0 H BUN 23 H Creatinine 1.15 Est Cr Clr Drug Dosing 62.8 Est GFR ( Amer) 77.5 Est GFR (Non-Af Amer) 66.9 BUN/Creatinine Ratio 20.1 H Glucose 568 H* POC Glucose Lactate 1.5 Calcium 10.0 Phosphorus Magnesium Total Bilirubin 0.6 AST 19 ALT 33 Alkaline Phosphatase 186 H Troponin I < 0.015 Total Protein 7.9 Albumin 3.2 L Globulin 4.7 H Albumin/Globulin Ratio 0.7 L Lipase 81 Beta-Hydroxybutyric Acd Urine Color Urine Appearance Urine pH Ur Specific [place] Urine Protein Urine Glucose (UA) Urine Ketones Urine Blood Urine Nitrite Urine Bilirubin Urine Urobilinogen Ur Leukocyte Esterase Stl C. cayetanensis PCR Stool Rotavirus A PCR Stl Adenov F 40/41 PCR Stool Astrovirus (PCR) Stool Campylobacter PCR Stl C.difficile Tox A&B Stl C. diff Tox A/B PCR Stool Cryptosporidium PCR Stl E.coli Shiga Tox PCR Stl Enterotoxigenic E PCR Stool EPEC (PCR) Stool EAEC (PCR) Stl E. histolytica PCR Stool Giardia Lamblia PCR Stool Salmonella PCR Stool Sapovirus (PCR) Stl P. shigelloides PCR Stl Shigella/EIEC PCR St Y.enterocolitica PCR Stool Vibrio (PCR) Stl Vibrio cholerae PCR Stl Norovirus GI/GII PCR SARS-CoV-2, RNA, NAAT 08/24/21 08/24/21 08/24/21 18:42 18:44 18:54 WBC 22.34 H RBC 4.98 Hgb 14.1 Hct 43.1 MCV 86.5 MCH 28.3 MCHC 32.7 RDW Std Deviation 51.8 H RDW Coeff of Chan 16.3 H Plt Count 277 MPV 10.7 H Immature Gran % (Auto) 0.2 Neut % (Auto) 88.0 Lymph % (Auto) 5.6 [place] % (Auto) 5.6 Eos % (Auto) 0.4 Baso % (Auto) 0.2 Neut # (Auto) 19.64 H Lymph # (Auto) 1.24 [place] # (Auto) 1.26 H Eos # (Auto) 0.10 Baso # (Auto) 0.05 Immature Gran # (Auto) 0.05 H RBC Morphology Unremarkable PT INR VBG pH 7.34 L VBG pCO2 36 L VBG pO2 44 VBG HCO3 19 VBG O2 Saturation 75.9 VBG Base Excess -6.0 Barometric Pressure 745.3 Sodium Potassium Chloride Carbon Dioxide Anion Gap BUN Creatinine Est Cr Clr Drug Dosing Est GFR ( Amer) Est GFR (Non-Af Amer) BUN/Creatinine Ratio Glucose POC Glucose 533 H* Lactate Calcium Phosphorus Magnesium Total Bilirubin AST ALT Alkaline Phosphatase Troponin I Total Protein Albumin Globulin Albumin/Globulin Ratio Lipase Beta-Hydroxybutyric Acd Urine Color Urine Appearance Urine pH Ur Specific [place] Urine Protein Urine Glucose (UA) Urine Ketones Urine Blood Urine Nitrite Urine Bilirubin Urine Urobilinogen Ur Leukocyte Esterase Stl C. cayetanensis PCR Stool Rotavirus A PCR Stl Adenov F 40/41 PCR Stool Astrovirus (PCR) Stool Campylobacter PCR Stl C.difficile Tox A&B Stl C. diff Tox A/B PCR Stool Cryptosporidium PCR Stl E.coli Shiga Tox PCR Stl Enterotoxigenic E PCR Stool EPEC (PCR) Stool EAEC (PCR) Stl E. histolytica PCR Stool Giardia Lamblia PCR Stool Salmonella PCR Stool Sapovirus (PCR) Stl P. shigelloides PCR Stl Shigella/EIEC PCR St Y.enterocolitica PCR Stool Vibrio (PCR) Stl Vibrio cholerae PCR Stl Norovirus GI/GII PCR SARS-CoV-2, RNA, NAAT 08/24/21 08/24/21 08/24/21 19:10 21:20 21:35 WBC RBC Hgb Hct MCV MCH MCHC RDW Std Deviation RDW Coeff of Chan Plt Count MPV Immature Gran % (Auto) Neut % (Auto) Lymph % (Auto) [place] % (Auto) Eos % (Auto) Baso % (Auto) Neut # (Auto) Lymph # (Auto) [place] # (Auto) Eos # (Auto) Baso # (Auto) Immature Gran # (Auto) RBC Morphology PT INR VBG pH VBG pCO2 VBG pO2 VBG HCO3 VBG O2 Saturation VBG Base Excess Barometric Pressure Sodium Potassium Chloride Carbon Dioxide Anion Gap BUN Creatinine Est Cr Clr Drug Dosing Est GFR ( Amer) Est GFR (Non-Af Amer) BUN/Creatinine Ratio Glucose POC Glucose Lactate Calcium Phosphorus Magnesium Total Bilirubin AST ALT Alkaline Phosphatase Troponin I Total Protein Albumin Globulin Albumin/Globulin Ratio Lipase Beta-Hydroxybutyric Acd Urine Color Yellow Urine Appearance Clear Urine pH 5.0 Ur Specific [place] 1.022 Urine Protein Negative Urine Glucose (UA) 3+ H Urine Ketones 3+ H Urine Blood Negative Urine Nitrite Negative Urine Bilirubin Negative Urine Urobilinogen Negative Ur Leukocyte Esterase Negative Stl C. cayetanensis PCR Not Detected Stool Rotavirus A PCR Not Detected Stl Adenov F 40/41 PCR Not Detected Stool Astrovirus (PCR) Not Detected Stool Campylobacter PCR Not Detected Stl C.difficile Tox A&B Positive Cdiff Toxin A* Stl C. diff Tox A/B PCR C.diff Gene Detected A Stool Cryptosporidium PCR Not Detected Stl E.coli Shiga Tox PCR Not Detected Stl Enterotoxigenic E PCR Not Detected Stool EPEC (PCR) Not Detected Stool EAEC (PCR) Not Detected Stl E. histolytica PCR Not Detected Stool Giardia Lamblia PCR Not Detected Stool Salmonella PCR Not Detected Stool Sapovirus (PCR) Not Detected Stl P. shigelloides PCR Not Detected Stl Shigella/EIEC PCR Not Detected St Y.enterocolitica PCR Not Detected Stool Vibrio (PCR) Not Detected Stl Vibrio cholerae PCR Not Detected Stl Norovirus GI/GII PCR Not Detected SARS-CoV-2, RNA, NAAT NEGATIVE 08/24/21 08/24/21 08/25/21 22:10 23:16 00:13 WBC RBC Hgb Hct MCV MCH MCHC RDW Std Deviation RDW Coeff of Chan Plt Count MPV Immature Gran % (Auto) Neut % (Auto) Lymph % (Auto) [place] % (Auto) Eos % (Auto) Baso % (Auto) Neut # (Auto) Lymph # (Auto) [place] # (Auto) Eos # (Auto) Baso # (Auto) Immature Gran # (Auto) RBC Morphology PT INR VBG pH VBG pCO2 VBG pO2 VBG HCO3 VBG O2 Saturation VBG Base Excess Barometric Pressure Sodium Potassium Chloride Carbon Dioxide Anion Gap BUN Creatinine Est Cr Clr Drug Dosing Est GFR ( Amer) Est GFR (Non-Af Amer) BUN/Creatinine Ratio Glucose POC Glucose 414 H* 296 H 251 H Lactate Calcium Phosphorus Magnesium Total Bilirubin AST ALT Alkaline Phosphatase Troponin I Total Protein Albumin Globulin Albumin/Globulin Ratio Lipase Beta-Hydroxybutyric Acd Urine Color Urine Appearance Urine pH Ur Specific [place] Urine Protein Urine Glucose (UA) Urine Ketones Urine Blood Urine Nitrite Urine Bilirubin Urine Urobilinogen Ur Leukocyte Esterase Stl C. cayetanensis PCR Stool Rotavirus A PCR Stl Adenov F 40/41 PCR Stool Astrovirus (PCR) Stool Campylobacter PCR Stl C.difficile Tox A&B Stl C. diff Tox A/B PCR Stool Cryptosporidium PCR Stl E.coli Shiga Tox PCR Stl Enterotoxigenic E PCR Stool EPEC (PCR) Stool EAEC (PCR) Stl E. histolytica PCR Stool Giardia Lamblia PCR Stool Salmonella PCR Stool Sapovirus (PCR) Stl P. shigelloides PCR Stl Shigella/EIEC PCR St Y.enterocolitica PCR Stool Vibrio (PCR) Stl Vibrio cholerae PCR Stl Norovirus GI/GII PCR SARS-CoV-2, RNA, NAAT 08/25/21 08/25/21 08/25/21 00:56 00:56 01:23 WBC RBC Hgb Hct MCV MCH MCHC RDW Std Deviation RDW Coeff of Chan Plt Count MPV Immature Gran % (Auto) Neut % (Auto) Lymph % (Auto) [place] % (Auto) Eos % (Auto) Baso % (Auto) Neut # (Auto) Lymph # (Auto) [place] # (Auto) Eos # (Auto) Baso # (Auto) Immature Gran # (Auto) RBC Morphology PT INR VBG pH 7.39 VBG pCO2 VBG pO2 VBG HCO3 VBG O2 Saturation VBG Base Excess Barometric Pressure Sodium 135 L D Potassium 3.6 D Chloride 101 Carbon Dioxide 30 Anion Gap 4.0 BUN 19 H Creatinine 0.95 Est Cr Clr Drug Dosing 76.0 Est GFR ( Amer) 97.7 Est GFR (Non-Af Amer) 84.3 BUN/Creatinine Ratio 19.5 Glucose 204 H POC Glucose 192 H Lactate Calcium 9.2 Phosphorus 2.2 L Magnesium 1.6 L Total Bilirubin AST ALT Alkaline Phosphatase Troponin I Total Protein Albumin Globulin Albumin/Globulin Ratio Lipase Beta-Hydroxybutyric Acd Urine Color Urine Appearance Urine pH Ur Specific [place] Urine Protein Urine Glucose (UA) Urine Ketones Urine Blood Urine Nitrite Urine Bilirubin Urine Urobilinogen Ur Leukocyte Esterase Stl C. cayetanensis PCR Stool Rotavirus A PCR Stl Adenov F PCR Stool Astrovirus (PCR) Stool Campylobacter PCR Stl C.difficile Tox A&B Stl C. diff Tox A/B PCR Stool Cryptosporidium PCR Stl E.coli Shiga Tox PCR Stl Enterotoxigenic E PCR Stool EPEC (PCR) Stool EAEC (PCR) Stl E. histolytica PCR Stool Giardia Lamblia PCR Stool Salmonella PCR Stool Sapovirus (PCR) Stl P. shigelloides PCR Stl Shigella/EIEC PCR St Y.enterocolitica PCR Stool Vibrio (PCR) Stl Vibrio cholerae PCR Stl Norovirus GI/GII PCR SARS-CoV-2, RNA, NAAT 08/25/21 08/25/21 08/25/21 02:19 03:18 04:23 WBC RBC Hgb Hct MCV MCH MCHC RDW Std Deviation RDW Coeff of Chan Plt Count MPV Immature Gran % (Auto) Neut % (Auto) Lymph % (Auto) [place] % (Auto) Eos % (Auto) Baso % (Auto) Neut # (Auto) Lymph # (Auto) [place] # (Auto) Eos # (Auto) Baso # (Auto) Immature Gran # (Auto) RBC Morphology PT INR VBG pH VBG pCO2 VBG pO2 VBG HCO3 VBG O2 Saturation VBG Base Excess Barometric Pressure Sodium Potassium Chloride Carbon Dioxide Anion Gap BUN Creatinine Est Cr Clr Drug Dosing Est GFR ( Amer) Est GFR (Non-Af Amer) BUN/Creatinine Ratio Glucose POC Glucose 174 H 159 H 129 H Lactate Calcium Phosphorus Magnesium Total Bilirubin AST ALT Alkaline Phosphatase Troponin I Total Protein Albumin Globulin Albumin/Globulin Ratio Lipase Beta-Hydroxybutyric Acd Urine Color Urine Appearance Urine pH Ur Specific [place] Urine Protein Urine Glucose (UA) Urine Ketones Urine Blood Urine Nitrite Urine Bilirubin Urine Urobilinogen Ur Leukocyte Esterase Stl C. cayetanensis PCR Stool Rotavirus A PCR Stl Adenov PCR Stool Astrovirus (PCR) Stool Campylobacter PCR Stl C.difficile Tox A&B Stl C. diff Tox A/B PCR Stool Cryptosporidium PCR Stl E.coli Shiga Tox PCR Stl Enterotoxigenic E PCR Stool EPEC (PCR) Stool EAEC (PCR) Stl E. histolytica PCR Stool Giardia Lamblia PCR Stool Salmonella PCR Stool Sapovirus (PCR) Stl P. shigelloides PCR Stl Shigella/EIEC PCR St Y.enterocolitica PCR Stool Vibrio (PCR) Stl Vibrio cholerae PCR Stl Norovirus GI/GII PCR SARS-CoV-2, RNA, NAAT 08/25/21 08/25/21 08/25/21 04:34 04:38 05:21 WBC RBC Hgb Hct MCV MCH MCHC RDW Std Deviation RDW Coeff of Chan Plt Count MPV Immature Gran % (Auto) Neut % (Auto) Lymph % (Auto) [place] % (Auto) Eos % (Auto) Baso % (Auto) Neut # (Auto) Lymph # (Auto) [place] # (Auto) Eos # (Auto) Baso # (Auto) Immature Gran # (Auto) RBC Morphology PT INR VBG pH 7.39 VBG pCO2 VBG pO2 VBG HCO3 VBG O2 Saturation VBG Base Excess Barometric Pressure Sodium 136 Potassium 3.6 Chloride 103 Carbon Dioxide 28 Anion Gap 5.0 BUN 16 Creatinine 0.80 Est Cr Clr Drug Dosing 90.3 Est GFR ( Amer) 109.4 Est GFR (Non-Af Amer) 94.4 BUN/Creatinine Ratio 20.3 H Glucose 160 H POC Glucose 119 H Lactate Calcium 9.4 Phosphorus 2.6 Magnesium 1.6 L Total Bilirubin AST ALT Alkaline Phosphatase Troponin I Total Protein Albumin Globulin Albumin/Globulin Ratio Lipase Beta-Hydroxybutyric Acd Urine Color Urine Appearance Urine pH Ur Specific [place] Urine Protein Urine Glucose (UA) Urine Ketones Urine Blood Urine Nitrite Urine Bilirubin Urine Urobilinogen Ur Leukocyte Esterase Stl C. cayetanensis PCR Stool Rotavirus A PCR Stl Adenov F 40/41 PCR Stool Astrovirus (PCR) Stool Campylobacter PCR Stl C.difficile Tox A&B Stl C. diff Tox A/B PCR Stool Cryptosporidium PCR Stl E.coli Shiga Tox PCR Stl Enterotoxigenic E PCR Stool EPEC (PCR) Stool EAEC (PCR) Stl E. histolytica PCR Stool Giardia Lamblia PCR Stool Salmonella PCR Stool Sapovirus (PCR) Stl P. shigelloides PCR Stl Shigella/EIEC PCR St Y.enterocolitica PCR Stool Vibrio (PCR) Stl Vibrio cholerae PCR Stl Norovirus GI/GII PCR SARS-CoV-2, RNA, NAAT 08/25/21 08/25/21 08/25/21 05:47 06:05 06:17 WBC RBC Hgb Hct MCV MCH MCHC RDW Std Deviation RDW Coeff of Chan Plt Count MPV Immature Gran % (Auto) Neut % (Auto) Lymph % (Auto) [place] % (Auto) Eos % (Auto) Baso % (Auto) Neut # (Auto) Lymph # (Auto) [place] # (Auto) Eos # (Auto) Baso # (Auto) Immature Gran # (Auto) RBC Morphology PT INR VBG pH VBG pCO2 VBG pO2 VBG HCO3 VBG O2 Saturation VBG Base Excess Barometric Pressure Sodium Potassium Chloride Carbon Dioxide Anion Gap BUN Creatinine Est Cr Clr Drug Dosing Est GFR ( Amer) Est GFR (Non-Af Amer) BUN/Creatinine Ratio Glucose POC Glucose 109 H 106 H 121 H Lactate Calcium Phosphorus Magnesium Total Bilirubin AST ALT Alkaline Phosphatase Troponin I Total Protein Albumin Globulin Albumin/Globulin Ratio Lipase Beta-Hydroxybutyric Acd Urine Color Urine Appearance Urine pH Ur Specific [place] Urine Protein Urine Glucose (UA) Urine Ketones Urine Blood Urine Nitrite Urine Bilirubin Urine Urobilinogen Ur Leukocyte Esterase Stl C. cayetanensis PCR Stool Rotavirus A PCR Stl Adenov F 40/41 PCR Stool Astrovirus (PCR) Stool Campylobacter PCR Stl C.difficile Tox A&B Stl C. diff Tox A/B PCR Stool Cryptosporidium PCR Stl E.coli Shiga Tox PCR Stl Enterotoxigenic E PCR Stool EPEC (PCR) Stool EAEC (PCR) Stl E. histolytica PCR Stool Giardia Lamblia PCR Stool Salmonella PCR Stool Sapovirus (PCR) Stl P. shigelloides PCR Stl Shigella/EIEC PCR St Y.enterocolitica PCR Stool Vibrio (PCR) Stl Vibrio cholerae PCR Stl Norovirus GI/GII PCR SARS-CoV-2, RNA, NAAT 08/25/21 08/25/21 08/25/21 06:32 07:31 08:22 WBC RBC Hgb Hct MCV MCH MCHC RDW Std Deviation RDW Coeff of Chan Plt Count MPV Immature Gran % (Auto) Neut % (Auto) Lymph % (Auto) [place] % (Auto) Eos % (Auto) Baso % (Auto) Neut # (Auto) Lymph # (Auto) [place] # (Auto) Eos # (Auto) Baso # (Auto) Immature Gran # (Auto) RBC Morphology PT INR VBG pH VBG pCO2 VBG pO2 VBG HCO3 VBG O2 Saturation VBG Base Excess Barometric Pressure Sodium Potassium Chloride Carbon Dioxide Anion Gap BUN Creatinine Est Cr Clr Drug Dosing Est GFR ( Amer) Est GFR (Non-Af Amer) BUN/Creatinine Ratio Glucose POC Glucose 152 H 161 H 140 H Lactate Calcium Phosphorus Magnesium Total Bilirubin AST ALT Alkaline Phosphatase Troponin I Total Protein Albumin Globulin Albumin/Globulin Ratio Lipase Beta-Hydroxybutyric Acd Urine Color Urine Appearance Urine pH Ur Specific [place] Urine Protein Urine Glucose (UA) Urine Ketones Urine Blood Urine Nitrite Urine Bilirubin Urine Urobilinogen Ur Leukocyte Esterase Stl C. cayetanensis PCR Stool Rotavirus A PCR Stl Adenov F 40/41 PCR Stool Astrovirus (PCR) Stool Campylobacter PCR Stl C.difficile Tox A&B Stl C. diff Tox A/B PCR Stool Cryptosporidium PCR Stl E.coli Shiga Tox PCR Stl Enterotoxigenic E PCR Stool EPEC (PCR) Stool EAEC (PCR) Stl E. histolytica PCR Stool Giardia Lamblia PCR Stool Salmonella PCR Stool Sapovirus (PCR) Stl P. shigelloides PCR Stl Shigella/EIEC PCR St Y.enterocolitica PCR Stool Vibrio (PCR) Stl Vibrio cholerae PCR Stl Norovirus GI/GII PCR SARS-CoV-2, RNA, NAAT Diagnostic Findings Chest X-Ray 08/24/21 19:14 XR chest 1V portable HISTORY: Weakness. COMPARISON: Chest 06/30/2021. FINDINGS: The cardiac silhouette remains normal in size. There are poststernotomy changes and an aortic valve prosthesis. No focal lung consolidations to suggest pneumonia. No evidence for pulmonary edema. No pleural effusions. No pneumothorax. IMPRESSION: No acute process. ACT 112: Negative or not required by law. Electronically signed by: Otf Avila M.D. 08/24/2021 8:04 PM PG Care Time/CCT Total # of Minutes Spent Total Time Spent with Patient: Total time spent is greater than 50% in coordination of care (as documented) at patient's floor/unit and/or counseling patient: Coding Level of Care Code 28540 Subseq Hosp Care Lvl 3 Diagnoses DKA (diabetic ketoacidosis) E13.10 Diabetes mellitus complication detail: without coma Diabetes mellitus type: other specified (including DEB) Wound of left foot S91.302A Clostridium difficile infection A49.8 Aortic stenosis I35.0 CAD (coronary artery disease) I25.10 Coronary Disease-Associated Artery/Lesion type: [place] artery [place] vs. transplanted heart: [place] heart Associated angina: without angina PVD (peripheral vascular disease) I73.9 History of aortic valve replacement Z95.2 Hypothyroidism E03.9 Hypothyroidism type: unspecified Hypertension I10 Hypertension type: unspecified Dyslipidemia E78.5 Below-knee amputation of right lower extremity S88.111A Magnesium deficiency E61.2 (1) DKA (diabetic ketoacidosis) Diabetes mellitus complication detail: without coma Diabetes mellitus type: other specified (including DEB) Qualified Code(s): E13.10 - Other specified diabetes mellitus with ketoacidosis without coma (2) CAD (coronary artery disease) Coronary Disease-Associated Artery/Lesion type: [place] artery [place] vs. transplanted heart: [place] heart Associated angina: without angina Qualified Code(s): I25.10 - Atherosclerotic heart disease of [place] coronary artery without angina pectoris (3) Hypothyroidism Hypothyroidism type: unspecified Qualified Code(s): E03.9 - Hypothyroidism, unspecified (4) Hypertension Hypertension type: unspecified Qualified Code(s): I10 - Essential (primary) hypertension
[2021-08-25] MEDS ORDERED: CONSULT PHARMACY STA (08:39)
[2021-08-25] MEDS ORDERED: PHARMACY GLYCEMIC MGMT CONSULT PRN (08:43)
[2021-08-25] MEDS ORDERED: INSULIN GLARGINE SOLOSTAR 100 UNITS/ML 3 ML PEN SC ONE (09:00)
[2021-08-25 09:23] LABS: BUN Creatinine Ratio 16.8 (10-20); Calcium 8.9 mg/dl (8.5-10.1); Creatinine Clr Calc Pharmacy 92.6 ml/min; Est GFR (African American) 110.6 ml/min; Est GFR (Non-African American) 95.4 ml/min; Magnesium 1.6 mg/dl (1.8-2.4); Phosphorus 2.8 mg/dl (2.5-4.9); Potassium 4.2 mmol/L (3.5-5.1)
[2021-08-25] MEDS: HYDROCORTISONE HC 2.5% CRM 30GM TUBE EXT SCH ×2 (10:08→21:22)
[2021-08-25] MEDS: INSULIN ASPART PER UNIT SC SCH ×4 (10:19→22:18)
--- NOTE | 2021-08-25 13:04 | Pharmacy Report ---
Pharmacy Glycemic Short Note 2 - Date of Service August 25, 2021 - Glycemic Short BSG Results (Last 24 hours): 08/24/21 08/24/21 08/24/21 18:42 18:44 22:10 Glucose 568 H* POC Glucose 533 H* 414 H* 08/24/21 08/25/21 08/25/21 23:16 00:13 00:56 Glucose 204 H POC Glucose 296 H 251 H 08/25/21 08/25/21 08/25/21 01:23 02:19 03:18 Glucose POC Glucose 192 H 174 H 159 H 08/25/21 08/25/21 08/25/21 04:23 04:34 05:21 Glucose 160 H POC Glucose 129 H 119 H 08/25/21 08/25/21 08/25/21 05:47 06:05 06:17 Glucose POC Glucose 109 H 106 H 121 H 08/25/21 08/25/21 08/25/21 06:32 07:31 08:22 Glucose POC Glucose 152 H 161 H 140 H 08/25/21 08/25/21 08/25/21 08:47 09:39 10:25 Glucose 168 H POC Glucose 160 H 160 H 08/25/21 08/25/21 11:22 12:41 Glucose POC Glucose 138 H 129 H OUTPATIENT ANTIDIABETIC REGIMEN: * Novolog pump * HbA1c: 8.7% (07/01/21) ASSESSMENT: * TK is a 66 year old male with T1DM admitted last evening for DKA secondary to insulin pump malfunction/dislodgment * Labs on admission included, BSG of 568 mg/dL, CO2: 21, and anion gap of 15 * Insulin infusion initiated in ED and BSGs/lab normalized overnight, D5-1/2 NSS with 40 KCl @125 mL/hr also infusing in order to maintain insulin infusion * Pharmacy consulted this morning for transition to SC insulin now that anion gap is closed * Will attempt insulin drip transition today with home dose of basal insulin * Per diabetes visit note on 06/11/21 reports insulin pump settings as follows: basal rate 1.65 unit/hr, goal range of 90-150 mg/dL, correction factor 30, and carb ratio of 6. PLAN FOR INPATIENT GLYCEMIC CONTROL: * Hold Novolog pump * Basal insulin * Lantus 40 units SC x 1 (~equivalent to home basal) * Reassess in AM * Bolus insulin * NovoLog per scale ACHS or Q6hrs while NPO * Goal Range: Low 90 mg/dL - High 150 mg/dL * Correction Factor: 30 mg/dL/unit * Nutritional / Prandial insulin per carb ratio of 1 unit per 6 grams CHO consumed * checks with same parameters PLAN FOR DISCHARGE: * tbd
[2021-08-25 13:12] LABS: BUN Creatinine Ratio 16.2 (10-20); Creatinine Clr Calc Pharmacy 98.9 ml/min; Est GFR (African American) 113.6 ml/min; Magnesium 1.6 mg/dl (1.8-2.4)
[2021-08-25] MEDS ORDERED: INSULIN ASPART PER UNIT SC ONE (14:30)
[2021-08-25] MEDS: MAGNESIUM OXIDE 400 MG TAB PO SCH (17:00)
[2021-08-25 17:36] LABS: BUN Creatinine Ratio 13.1 (10-20); Calcium 8.7 mg/dl (8.5-10.1); Est GFR (African American) 111.7 ml/min; Est GFR (Non-African American) 96.4 ml/min; Magnesium 1.5 mg/dl (1.8-2.4); Potassium 3.7 mmol/L (3.5-5.1)
[2021-08-25 17:37] LABS: Phosphorus 2.9 mg/dl (2.5-4.9)
[2021-08-25 21:12] LABS: BUN Creatinine Ratio 10.5 (10-20); Calcium 8.7 mg/dl (8.5-10.1); Creatinine Clr Calc Pharmacy 90.3 ml/min; Est GFR (African American) 109.4 ml/min; Est GFR (Non-African American) 94.4 ml/min; Magnesium 1.5 mg/dl (1.8-2.4); Phosphorus 2.8 mg/dl (2.5-4.9); Potassium 3.9 mmol/L (3.5-5.1)
[2021-08-25] MEDS: ATORVASTATIN 40 MG TAB PO SCH (21:21)
[2021-08-26] MEDS: RASPBERRY SYRUP 5 ML UDP PO SCH ×4 (00:37→18:45)
[2021-08-26] MEDS: VANCOMYCIN HCL 250 MG/5 ML SOLN PO SCH ×4 (00:37→18:45)
[2021-08-26] MEDS: INSULIN ASPART PER UNIT SC SCH ×6 (01:08→20:50)
[2021-08-26 04:44] LABS: Basophils # (auto) 0.04 K/uL (0-0.2); Basophils % (auto) 0.3 %; Eosinophils # (auto) 0.44 K/uL (0-0.5); Eosinophils % (auto) 3.5 %; Hematocrit (blood only) 38.7 % (42-52); Hemoglobin 12.8 g/dL (14.0-18.0); Immature Granulocytes # (auto) 0.02 K/uL (0.00-0.02); Immature Granulocytes % (auto) 0.2 %; Lymphocytes # (auto) 2.15 K/uL (1.2-3.4); Lymphocytes % (auto) 17.2 %; Mean Corpuscular Hemoglobin 28.3 pg (25-34); Mean Corpuscular Hgb Conc 33.1 g/dL (32-36); Mean Corpuscular Volume 85.6 fL (80-100); Mean Platelet Volume 10.1 fL (7.4-10.4); Monocytes # (auto) 1.06 K/uL (0.11-0.59); Monocytes % (auto) 8.5 %; Neutrophils # (auto) 8.82 K/uL (1.4-6.5); Neutrophils % (auto) 70.3 %; Platelet Count 234 K/uL (130-400); RDW Coefficient of Variation 16.7 % (11.5-14.5); RDW Standard Deviation 52.9 fL (36.4-46.3); Red Blood Count 4.52 M/uL (4.7-6.1); White Blood Count 12.53 K/uL (4.8-10.8)
[2021-08-26 05:05] LABS: Albumin Globulin Ratio 0.6 (0.9-2); Albumin Level 2.7 gm/dl (3.4-5.0); BUN Creatinine Ratio 9.5 (10-20); Bilirubin,Total 0.4 mg/dl (0.2-1); Calcium 8.9 mg/dl (8.5-10.1); Creatinine Clr Calc Pharmacy 100.3 ml/min; Est GFR (African American) 114.3 ml/min; Est GFR (Non-African American) 98.6 ml/min; Globulin 4.2 gm/dl (2.5-4.0); Total Protein 6.9 gm/dl (6.4-8.2)
[2021-08-26 06:03] LABS: Magnesium 1.7 mg/dl (1.8-2.4)
[2021-08-26] MEDS: LEVOTHYROXINE SODIUM 175 MCG TABLET PO SCH (06:44)
[2021-08-26] MEDS ORDERED: POTASSIUM CHLORIDE CRTAB 20 MEQ TABCR PO ONE (08:00)
--- NOTE | 2021-08-26 09:04 | Hospitalist Progress Note ---
Date of Service August 26, 2021 Assessment & Plan (1) DKA (diabetic ketoacidosis): (2) Clostridium difficile infection: (3) Magnesium deficiency: (4) Below-knee amputation of right lower extremity: (5) Wound of left foot: (6) Aortic stenosis: (7) CAD (coronary artery disease): (8) Diabetes type 1, controlled: Plan: (1) DKA (diabetic ketoacidosis): (2) Clostridium difficile infection: (3) Aortic stenosis: (4) History of aortic valve replacement: (5) Wound of left foot: (6) CAD (coronary artery disease): (7) PVD (peripheral vascular disease): (8) Hypertension: (9) Dyslipidemia: (10) Hypothyroidism: (11) Below-knee amputation of right lower extremity: (12) Magnesium deficiency: Plan: Diabetic ketoacidosis: Plan: The patient will require admission to the hospital proceeding as follows: We will initiate an insulin drip via the DKA protocol and obtain a glycemic consult via pharmacy I suspect that the patient's DKA may have been triggered by insulin pump malfunction/dislodgment as noted in the HPI. However, we have not ascertain if patient has any other underlying infectious etiology and will evaluate for this by checking stool studies due to history of C. difficile and also checking for Covid infection as he has had an exposure to this. We will would also be prudent to check blood cultures due to his history of positive blood cultures in June of this year. There is no evidence of urinary tract infection by UA and there is no evidence of pneumonia on chest x-ray. blood cultures pending Diabetic management Tolerating p.o. diet Continued outpatient insulin therapy 2. C diff/ Diarrhea: Plan: Due to patient's history of C. difficile we will check stool to see if he has an active C. difficile infection and treat accordingly if this is present scheduled for GI evaluation in 3 weeks reported several diarrhea episodes over the last 12 hours , no rectal bleeding C diff testing Continue vancomycin 3-4 Aortic stenosis: Plan: Patient has a history of aortic valve replacement Most recent echo available for review was from June 2021 that showed a 65% ejection fraction and a well-seated aortic valve prosthesis with a normal gradient 5. Wound of left foot, right BKA Plan: Continue local wound care We will consult wound care nurse 6-8 CAD (coronary artery disease) /hypertension/ peripheral vascular disease Plan: Maintain the patient on his home medications including Lipitor, Plavix, aspirin, and metoprolol 9. Dyslipidemia continue atorvastatin 10. Hypothyroidism continue levothyroxine 175 mcg daily 11. below-knee amputation of right lower extremity currently in outpatient wrap and brace. Consultation to Orthopedics if the patient has extended stay, scheduled for orthopedic out patient visit continue following with wound care nurse 12. replete with magnesium 400mg daily., monitor for symptoms of abdominal pain or increase in diarrhea 13. hypokalemia 40 mEq this a.m. read repeat labs in a.m. Admission and Anticipated Discharge Date Admission Date: August 24, 2021 Admission and Anticipated Discharge Date Admission Date: August 24, 2021 Subjective difficulty with diarrhea in the last 12 hours several episodes watery stool no blood noted Mild abdominal discomfort with no nausea vomiting Tolerating his p.o. diet otherwise and No difficulties with transition from IVs to standard outpatient diabetic treatment Review of Systems Constitutional: no fever and no chills Respiratory: no cough, no chest congestion, no dyspnea and no wheezing Cardiovascular: no chest pain, no palpitations and no edema Gastrointestinal: no abdominal pain, no heartburn, no nausea, no vomiting and no change in bowel habits Neurologic: + gait abnormality; no falls and no headache(s) Physical Exam Physical Exam: Constitutional: WD/WN, vitals as above Respiratory: Effort normal, CTA B/L CV: RRR, no murmur, no edema Abdomen: normal bowel sounds, soft, nontender, no hepatosplenomegaly Neurologic: Normal gait musculoskeletal right BKA, dressed in brace Results & Data Results & Data ([facility]) Vital Signs (Past 12 Hours) Vital Signs Pulse Pulse Resp BP BP Pulse Ox 08/26/21 08:23 73 18 124/64 94 08/26/21 06:00 73 18 141/65 H 98 Laboratory Results Laboratory Results - last 24 hr 08/25/21 08/25/21 08/25/21 08:47 09:39 10:25 WBC RBC Hgb Hct MCV MCH MCHC RDW Std Deviation RDW Coeff of Chan Plt Count MPV Immature Gran % (Auto) Neut % (Auto) Lymph % (Auto) [place] % (Auto) Eos % (Auto) Baso % (Auto) Neut # (Auto) Lymph # (Auto) [place] # (Auto) Eos # (Auto) Baso # (Auto) Immature Gran # (Auto) VBG pH Sodium 139 Potassium 4.2 D Chloride 105 Carbon Dioxide 28 Anion Gap 6.0 BUN 13 Creatinine 0.78 Est Cr Clr Drug Dosing 92.6 Est GFR ( Amer) 110.6 Est GFR (Non-Af Amer) 95.4 BUN/Creatinine Ratio 16.8 Glucose 168 H POC Glucose 160 H 160 H Calcium 8.9 Phosphorus 2.8 Magnesium 1.6 L Total Bilirubin AST ALT Alkaline Phosphatase Total Protein Albumin Globulin Albumin/Globulin Ratio 08/25/21 08/25/21 08/25/21 11:22 12:31 12:36 WBC RBC Hgb Hct MCV MCH MCHC RDW Std Deviation RDW Coeff of Chan Plt Count MPV Immature Gran % (Auto) Neut % (Auto) Lymph % (Auto) [place] % (Auto) Eos % (Auto) Baso % (Auto) Neut # (Auto) Lymph # (Auto) [place] # (Auto) Eos # (Auto) Baso # (Auto) Immature Gran # (Auto) VBG pH 7.42 H Sodium 139 Potassium 4.0 Chloride 104 Carbon Dioxide 29 Anion Gap 6.0 BUN 12 Creatinine 0.73 Est Cr Clr Drug Dosing 98.9 Est GFR ( Amer) 113.6 Est GFR (Non-Af Amer) 98.0 BUN/Creatinine Ratio 16.2 Glucose 151 H POC Glucose 138 H Calcium 9.0 Phosphorus 3.0 Magnesium 1.6 L Total Bilirubin AST ALT Alkaline Phosphatase Total Protein Albumin Globulin Albumin/Globulin Ratio 08/25/21 08/25/21 08/25/21 12:41 14:11 15:56 WBC RBC Hgb Hct MCV MCH MCHC RDW Std Deviation RDW Coeff of Chan Plt Count MPV Immature Gran % (Auto) Neut % (Auto) Lymph % (Auto) [place] % (Auto) Eos % (Auto) Baso % (Auto) Neut # (Auto) Lymph # (Auto) [place] # (Auto) Eos # (Auto) Baso # (Auto) Immature Gran # (Auto) VBG pH Sodium Potassium Chloride Carbon Dioxide Anion Gap BUN Creatinine Est Cr Clr Drug Dosing Est GFR ( Amer) Est GFR (Non-Af Amer) BUN/Creatinine Ratio Glucose POC Glucose 129 H 165 H 232 H Calcium Phosphorus Magnesium Total Bilirubin AST ALT Alkaline Phosphatase Total Protein Albumin Globulin Albumin/Globulin Ratio 08/25/21 08/25/21 08/25/21 17:03 17:03 17:04 WBC RBC Hgb Hct MCV MCH MCHC RDW Std Deviation RDW Coeff of Chan Plt Count MPV Immature Gran % (Auto) Neut % (Auto) Lymph % (Auto) [place] % (Auto) Eos % (Auto) Baso % (Auto) Neut # (Auto) Lymph # (Auto) [place] # (Auto) Eos # (Auto) Baso # (Auto) Immature Gran # (Auto) VBG pH 7.37 Sodium 137 Potassium 3.7 Chloride 102 Carbon Dioxide 26 Anion Gap 9.0 BUN 10 Creatinine 0.76 Est Cr Clr Drug Dosing 95.0 Est GFR ( Amer) 111.7 Est GFR (Non-Af Amer) 96.4 BUN/Creatinine Ratio 13.1 Glucose 222 H POC Glucose 210 H Calcium 8.7 Phosphorus 2.9 Magnesium 1.5 L Total Bilirubin AST ALT Alkaline Phosphatase Total Protein Albumin Globulin Albumin/Globulin Ratio 08/25/21 08/25/21 08/25/21 18:27 20:34 20:48 WBC RBC Hgb Hct MCV MCH MCHC RDW Std Deviation RDW Coeff of Chan Plt Count MPV Immature Gran % (Auto) Neut % (Auto) Lymph % (Auto) [place] % (Auto) Eos % (Auto) Baso % (Auto) Neut # (Auto) Lymph # (Auto) [place] # (Auto) Eos # (Auto) Baso # (Auto) Immature Gran # (Auto) VBG pH Sodium 138 Potassium 3.9 Chloride 103 Carbon Dioxide 26 Anion Gap 8.0 BUN 8 Creatinine 0.80 Est Cr Clr Drug Dosing 90.3 Est GFR ( Amer) 109.4 Est GFR (Non-Af Amer) 94.4 BUN/Creatinine Ratio 10.5 Glucose 265 H POC Glucose 262 H 233 H Calcium 8.7 Phosphorus 2.8 Magnesium 1.5 L Total Bilirubin AST ALT Alkaline Phosphatase Total Protein Albumin Globulin Albumin/Globulin Ratio 08/25/21 08/26/21 08/26/21 20:48 01:00 04:24 WBC 12.53 H RBC 4.52 L Hgb 12.8 L Hct 38.7 L MCV 85.6 MCH 28.3 MCHC 33.1 RDW Std Deviation 52.9 H RDW Coeff of Chan 16.7 H Plt Count 234 MPV 10.1 Immature Gran % (Auto) 0.2 Neut % (Auto) 70.3 Lymph % (Auto) 17.2 [place] % (Auto) 8.5 Eos % (Auto) 3.5 Baso % (Auto) 0.3 Neut # (Auto) 8.82 H Lymph # (Auto) 2.15 [place] # (Auto) 1.06 H Eos # (Auto) 0.44 Baso # (Auto) 0.04 Immature Gran # (Auto) 0.02 VBG pH 7.38 Sodium Potassium Chloride Carbon Dioxide Anion Gap BUN Creatinine Est Cr Clr Drug Dosing Est GFR ( Amer) Est GFR (Non-Af Amer) BUN/Creatinine Ratio Glucose POC Glucose 200 H Calcium Phosphorus Magnesium Total Bilirubin AST ALT Alkaline Phosphatase Total Protein Albumin Globulin Albumin/Globulin Ratio 08/26/21 08/26/21 08/26/21 04:24 05:57 06:34 WBC RBC Hgb Hct MCV MCH MCHC RDW Std Deviation RDW Coeff of Chan Plt Count MPV Immature Gran % (Auto) Neut % (Auto) Lymph % (Auto) [place] % (Auto) Eos % (Auto) Baso % (Auto) Neut # (Auto) Lymph # (Auto) [place] # (Auto) Eos # (Auto) Baso # (Auto) Immature Gran # (Auto) VBG pH Sodium 139 Potassium 3.0 L D Chloride 104 Carbon Dioxide 30 Anion Gap 5.0 BUN 7 Creatinine 0.72 Est Cr Clr Drug Dosing 100.3 Est GFR ( Amer) 114.3 Est GFR (Non-Af Amer) 98.6 BUN/Creatinine Ratio 9.5 L Glucose 98 POC Glucose 58 L* 82 Calcium 8.9 Phosphorus Magnesium 1.7 L Total Bilirubin 0.4 AST 32 ALT 34 Alkaline Phosphatase 140 H Total Protein 6.9 Albumin 2.7 L Globulin 4.2 H Albumin/Globulin Ratio 0.6 L 08/26/21 07:59 WBC RBC Hgb Hct MCV MCH MCHC RDW Std Deviation RDW Coeff of Chan Plt Count MPV Immature Gran % (Auto) Neut % (Auto) Lymph % (Auto) [place] % (Auto) Eos % (Auto) Baso % (Auto) Neut # (Auto) Lymph # (Auto) [place] # (Auto) Eos # (Auto) Baso # (Auto) Immature Gran # (Auto) VBG pH Sodium Potassium Chloride Carbon Dioxide Anion Gap BUN Creatinine Est Cr Clr Drug Dosing Est GFR ( Amer) Est GFR (Non-Af Amer) BUN/Creatinine Ratio Glucose POC Glucose 93 Calcium Phosphorus Magnesium Total Bilirubin AST ALT Alkaline Phosphatase Total Protein Albumin Globulin Albumin/Globulin Ratio PG Care Time/CCT Total # of Minutes Spent Total Time Spent with Patient: Total time spent is greater than 50% in coordination of care (as documented) at patient's floor/unit and/or counseling patient: Coding Level of Care Code 88972 Subseq Hosp Care Lvl 2 Diagnoses DKA (diabetic ketoacidosis) E13.10 Diabetes mellitus complication detail: without coma Diabetes mellitus type: other specified (including DEB) Clostridium difficile infection A49.8 Magnesium deficiency E61.2 Below-knee amputation of right lower extremity S88.111A Wound of left foot S91.302A Aortic stenosis I35.0 CAD (coronary artery disease) I25.10 Coronary Disease-Associated Artery/Lesion type: [place] artery [place] vs. transplanted heart: [place] heart Associated angina: without angina Diabetes type 1, controlled E10.9 (1) DKA (diabetic ketoacidosis) Diabetes mellitus complication detail: without coma Diabetes mellitus type: other specified (including DEB) Qualified Code(s): E13.10 - Other specified diabetes mellitus with ketoacidosis without coma (2) CAD (coronary artery disease) Coronary Disease-Associated Artery/Lesion type: [place] artery [place] vs. transplanted heart: [place] heart Associated angina: without angina Qualified Code(s): I25.10 - Atherosclerotic heart disease of [place] coronary artery without angina pectoris
[2021-08-26] MEDS: MAGNESIUM OXIDE 400 MG TAB PO SCH (09:52)
[2021-08-26] MEDS: METOPROLOL TARTRATE 25 MG TAB PO SCH ×2 (09:52→20:55)
[2021-08-26] MEDS: ADVANCED PROBIOTIC 1250 MG CAPSULE PO SCH (09:52)
[2021-08-26] MEDS: CLOPIDOGREL BISULFATE 75 MG TAB PO SCH (09:52)
[2021-08-26] MEDS: ASPIRIN 81 MG ECTAB PO SCH (09:52)
[2021-08-26] MEDS: CALCITRIOL 0.25 MCG CAPSULE PO SCH (09:52)
[2021-08-26] MEDS: FERROUS SULFATE 325 MG TAB PO SCH ×2 (09:53→22:07)
[2021-08-26] MEDS: HYDROCORTISONE HC 2.5% CRM 30GM TUBE EXT SCH ×2 (09:53→22:07)
[2021-08-26] MEDS: FOLIC ACID 1 MG TAB PO SCH (09:53)
[2021-08-26] MEDS: PANTOprazole 40 MG TAB PO SCH (09:53)
[2021-08-26] MEDS ORDERED: INSULIN GLARGINE SOLOSTAR 100 UNITS/ML 3 ML PEN SC ONE (12:45)
--- NOTE | 2021-08-26 13:56 | Pharmacy Report ---
Pharmacy Glycemic Short Note 2 - Date of Service August 26, 2021 - Glycemic Short BSG Results (Last 24 hours): 08/25/21 08/25/21 08/25/21 14:11 15:56 17:03 Glucose 222 H POC Glucose 165 H 232 H 08/25/21 08/25/21 08/25/21 17:04 18:27 20:34 Glucose POC Glucose 210 H 262 H 233 H 08/25/21 08/26/21 08/26/21 20:48 01:00 04:24 Glucose 265 H 98 POC Glucose 200 H 08/26/21 08/26/21 08/26/21 05:57 06:34 07:59 Glucose POC Glucose 58 L* 82 93 08/26/21 11:23 Glucose POC Glucose 296 H OUTPATIENT ANTIDIABETIC REGIMEN: * Novolog pump * HbA1c: 8.7% (07/01/21) ASSESSMENT: 08/26 * Pt has received 65 units SQ of insulin over the past 24hrs * 40 units of basal with Lantus * 15 units of bolus with NovoLog * Pt with LOW BSG this AM - most likely secondary to 2 units x 2 doses of NovoLog overnight at bedtime and midnight. Basal insulin dose is equal to outpatient basal insulin dosing and the extra 4 units of novolog given while fasting overnight likely contributed to low. * Pt will not be discharged today - continued workup for c diff. Will continue SQ basal bolus insulin regimen today and transition to outpatient pump tomorrow prior to dc. 08/25 * TK is a 66 year old male with T1DM admitted last evening for DKA secondary to insulin pump malfunction/dislodgment * Labs on admission included, BSG of 568 mg/dL, CO2: 21, and anion gap of 15 * Insulin infusion initiated in ED and BSGs/lab normalized overnight, D5-1/2 NSS with 40 KCl @125 mL/hr also infusing in order to maintain insulin infusion * Pharmacy consulted this morning for transition to SC insulin now that anion gap is closed * Will attempt insulin drip transition today with home dose of basal insulin * Per diabetes visit note on 06/11/21 reports insulin pump settings as follows: basal rate 1.65 unit/hr, goal range of 90-150 mg/dL, correction factor 30, and carb ratio of 6. PLAN FOR INPATIENT GLYCEMIC CONTROL: * Hold Novolog pump * Basal insulin * Lantus 40 units SC Q24hrs (~equivalent to home basal) * Bolus insulin * NovoLog per scale ACHS or Q6hrs while NPO * Goal Range: Low 90 mg/dL - High 150 mg/dL * Correction Factor: 30 mg/dL/unit * Nutritional / Prandial insulin per carb ratio of 1 unit per 6 grams CHO consumed * STOP ,04 checks PLAN FOR DISCHARGE: * Resume outpatient pump and f/u with [facility] endo provider 09/14/21
[2021-08-26] MEDS: ATORVASTATIN 40 MG TAB PO SCH (22:07)
[2021-08-27] MEDS: VANCOMYCIN HCL 250 MG/5 ML SOLN PO SCH ×3 (00:26→12:25)
[2021-08-27] MEDS: RASPBERRY SYRUP 5 ML UDP PO SCH ×3 (00:26→12:25)
[2021-08-27 05:56] LABS: Basophils # (auto) 0.04 K/uL (0-0.2); Basophils % (auto) 0.4 %; Eosinophils # (auto) 0.46 K/uL (0-0.5); Hematocrit (blood only) 39.6 % (42-52); Hemoglobin 13.1 g/dL (14.0-18.0); Immature Granulocytes # (auto) 0.01 K/uL (0.00-0.02); Immature Granulocytes % (auto) 0.1 %; Lymphocytes # (auto) 2.56 K/uL (1.2-3.4); Lymphocytes % (auto) 27.6 %; Mean Corpuscular Hemoglobin 28.2 pg (25-34); Mean Corpuscular Hgb Conc 33.1 g/dL (32-36); Mean Corpuscular Volume 85.2 fL (80-100); Mean Platelet Volume 10.3 fL (7.4-10.4); Monocytes # (auto) 0.89 K/uL (0.11-0.59); Monocytes % (auto) 9.6 %; Neutrophils # (auto) 5.31 K/uL (1.4-6.5); Neutrophils % (auto) 57.3 %; Platelet Count 236 K/uL (130-400); RDW Coefficient of Variation 16.8 % (11.5-14.5); RDW Standard Deviation 53.2 fL (36.4-46.3); Red Blood Count 4.65 M/uL (4.7-6.1); White Blood Count 9.27 K/uL (4.8-10.8)
[2021-08-27] MEDS: LEVOTHYROXINE SODIUM 175 MCG TABLET PO SCH (06:30)
[2021-08-27 06:46] LABS: Calcium 9.2 mg/dl (8.5-10.1); Creatinine Clr Calc Pharmacy 118.4 ml/min; Est GFR (African American) 122.3 ml/min; Est GFR (Non-African American) 105.5 ml/min; Magnesium 1.8 mg/dl (1.8-2.4); Potassium 3.7 mmol/L (3.5-5.1)
[2021-08-27] MEDS ORDERED: INSULIN ASPART 100 UNITS/ML VIAL SC PRN (08:00)
[2021-08-27] MEDS: NovoLOG INSULIN PUMP SCH ×2 (08:41→12:23)
[2021-08-27] MEDS: ADVANCED PROBIOTIC 1250 MG CAPSULE PO SCH (09:16)
[2021-08-27] MEDS: FOLIC ACID 1 MG TAB PO SCH (09:16)
[2021-08-27] MEDS: CALCITRIOL 0.25 MCG CAPSULE PO SCH (09:16)
[2021-08-27] MEDS: PANTOprazole 40 MG TAB PO SCH (09:17)
[2021-08-27] MEDS: FERROUS SULFATE 325 MG TAB PO SCH (09:17)
[2021-08-27] MEDS: METOPROLOL TARTRATE 25 MG TAB PO SCH (09:17)
[2021-08-27] MEDS: CLOPIDOGREL BISULFATE 75 MG TAB PO SCH (09:18)
[2021-08-27] MEDS: ASPIRIN 81 MG ECTAB PO SCH (09:19)
[2021-08-27] MEDS: MAGNESIUM OXIDE 400 MG TAB PO SCH (09:19)
[2021-08-27] MEDS: HYDROCORTISONE HC 2.5% CRM 30GM TUBE EXT SCH (09:22)
[2021-08-27] MEDS: INSULIN ASPART PER UNIT SC SCH (09:28)
--- NOTE | 2021-08-27 11:01 | Discharge Summary ---
Date of Service August 27, 2021 Admission HPI Per Admitting Provider There is a 66-year-old male who presented to [facility] secondary to hyperglycemia. Patient notes that he was in his usual state of health feeling fine this morning. The patient reports that he is an insulin- dependent diabetic and he has been so since age 23. He currently utilizes an insulin pump. Patient says he changed his shirt this afternoon around 2:00 PM. He noted approximately 1.5 hours later he developed some generalized aches. He notes that he has had episodes of hyperglycemia in the past and had aches similar to this so he checked his sugar and it was greater than 500. He checked his insulin pump and feels that it may have become dislodged and was not working correctly after changing his shirt. Over the next hour he checked his glucose 2 more times in the reading on his glucometer read "high" which the patient says is an indication that his sugar was greater than 200. He also notes that he summoned EMS to take him to the hospital where he had his glucose checked again with the glucometer again reading "high." Other than generalized aches the patient does not have any other complaints. I question the patient on other symptoms in search of any other inciting factors that may have caused hyperglycemia. He denies any cough or shortness of breath. He also denies any fevers, shakes, chills. Patient says that he has received 2 Covid vaccines and he believes the second 1 that was in December 2020. He has not yet received the booster. He said he was exposed to Covid by a visiting nurse but he was quarantined and cleared few days ago. The patient has not lost his sense of smell or taste. He denies any abdominal pain. He denies any nausea vomiting. He denies any dysuria or polyuria. The patient has a right below- knee amputation that he says is healing well. He does have 1 open sore on his left great toe that is from a blood blister that popped 1 or 2 days ago. He says he is putting Betadine and gauze on this. The patient does report that he has been having some loose bowel movements and he does have a history of C. difficile. The patient's records were reviewed and as noted he is an insulin-dependent diabetic. He is followed by Dr. Barros. Patient's most recent hemoglobin A1c was in July 01, 2021 which was 8.7. Patient says he does get regular ophthalmologic exams. His most recent visit was on 06/07/2021 where there were no signs of diabetic retinopathy. Patient has known peripheral vascular disease and has had a left lower extremity peripheral bypass. He has also had his left fifth toe amputated. In addition the patient had osteomyelitis and gangrene of his right lower extremity requiring a below-knee amputation in June of this year. Concerning previous infectious etiologies the patient's records were reviewed and he was noted to have a Pseudomonas infection of the right lower extremity resulting in gangrene and osteomyelitis. As noted above he has since had a right below-knee amputation. Patient has had blood cultures checked and his most recent blood cultures that were positive were in June 2021 where he was noted to have Enterococcus. In addition the patient developed C. difficile infection in May of this year and he was treated with oral vancomycin. Since admission to the emergency department today the patient has had labs and imaging which independent reviewed. He has had a chest x-ray performed that showed no evidence of pleural effusion or pneumonia. Labs were performed were CBC revealed white blood cell count was elevated at 22.3. His hemoglobin and hematocrit were normal. Platelet count was noted to be normal. Coagulation studies were normal. He had a venous blood gas with pH was noted to be 7.34. Chemistry profile showed sodium was 127. His potassium was normal. His BUN was elevated at 23 but his creatinine was noted to be within normal range. A glucose level was checked and was noted to be 568. Lactic acid level was noted to be normal and a calcium was also noted to be normal. There were no significant elevation of LFTs. The patient's lipase was noted to be normal. Urinalysis was not indicative of infection. A Covid test has been performed and is pending. An EKG was performed and this did show normal sinus rhythm with a right bundle branch block and findings consistent with an inferior infarct. When compared to prior EKGs there is no change noted. Cardiac enzymes were checked and were not elevated. The treating emergency room physician has initiated an insulin drip and has placed the patient on broad-spectrum antibiotics in the form of vancomycin and cefepime due to concern for underlying infection that may have triggered his DKA. At the time of my interview the patient was resting comfortably in bed he was in no distress. Admission Exam Per Admitting Provider well developed and well nourished; no acute distress Eyes: no conjunctival abnormality ENMT: Ears: no external ear abnormality Mucous membranes of the oropharynx are dry Neck:L trachea midline Respiratory: normal respiratory effort; no respiratory distress and no labored breathing Cardiovascular: Rate/Rhythm: regular rate and regular rhythm Gastrointestinal (Abdomen): Abdomen is soft, nondistended, and nontender to palpation. Bowel sounds are present. Musculoskeletal: Patient has a right below-knee amputation. There is an orthopedic brace in place and this is wrapped with a dressing. The patient's left lower extremity has some longitudinal incisions on the medial aspect consistent with prior surgical intervention. I was unable to palpate pedal pulses but his foot was not mottled. Patient had a open blood blister on the medial aspect of his great toe. There is no malodorous discharge. Patient had evidence of a prior left fifth toe amputation which was well-healed. Skin: no rashes Neurologic: moves all extremities Principal Diagnosis Diabetic Ketoacidosis Discharge Exam Constitutional WD/WN, vitals as above Respiratory normal respiratory effort, lungs clear to auscultation Cardiovascular RRR, no murmur, no edema Gastrointestinal (Abdomen) normal bowel sounds, soft, nontender, no hepatosplenomegaly Skin left first toe, mild pink, no change in skin or edema, Discharge Data Allergies Allergy/AdvReac Type Severity Reaction Status Date / Time No Known Allergies Allergy Unknown Verified 08/24/21 19:14 Consultations 08/24/21 20:34 ED Decision to Admit Stat Ordered Studies Laboratory Results - last 24 hr 08/26/21 08/26/21 08/26/21 10:25 11:23 16:44 WBC RBC Hgb Hct MCV MCH MCHC RDW Std Deviation RDW Coeff of Chan Plt Count MPV Immature Gran % (Auto) Neut % (Auto) Lymph % (Auto) Woodruff % (Auto) Eos % (Auto) Baso % (Auto) Neut # (Auto) Lymph # (Auto) Woodruff # (Auto) Eos # (Auto) Baso # (Auto) Immature Gran # (Auto) Sodium Potassium Chloride Carbon Dioxide Anion Gap BUN Creatinine Est Cr Clr Drug Dosing Est GFR ( Amer) Est GFR (Non-Af Amer) BUN/Creatinine Ratio Glucose POC Glucose 296 H 234 H Calcium Magnesium Stl C. diff Tox B Gene Negative Cdiff Gene 08/26/21 08/27/21 08/27/21 20:39 00:24 05:31 WBC RBC Hgb Hct MCV MCH MCHC RDW Std Deviation RDW Coeff of Chan Plt Count MPV Immature Gran % (Auto) Neut % (Auto) Lymph % (Auto) Woodruff % (Auto) Eos % (Auto) Baso % (Auto) Neut # (Auto) Lymph # (Auto) Woodruff # (Auto) Eos # (Auto) Baso # (Auto) Immature Gran # (Auto) Sodium 138 Potassium 3.7 D Chloride 105 Carbon Dioxide 29 Anion Gap 4.0 BUN 8 Creatinine 0.61 Est Cr Clr Drug Dosing 118.4 Est GFR ( Amer) 122.3 Est GFR (Non-Af Amer) 105.5 BUN/Creatinine Ratio 13.0 Glucose 169 H POC Glucose 328 H* 144 H Calcium 9.2 Magnesium 1.8 Stl C. diff Tox B Gene 08/27/21 08/27/21 08/27/21 05:31 06:49 08:59 WBC 9.27 RBC 4.65 L Hgb 13.1 L Hct 39.6 L MCV 85.2 MCH 28.2 MCHC 33.1 RDW Std Deviation 53.2 H RDW Coeff of Chan 16.8 H Plt Count 236 MPV 10.3 Immature Gran % (Auto) 0.1 Neut % (Auto) 57.3 Lymph % (Auto) 27.6 Woodruff % (Auto) 9.6 Eos % (Auto) 5.0 Baso % (Auto) 0.4 Neut # (Auto) 5.31 Lymph # (Auto) 2.56 Woodruff # (Auto) 0.89 H Eos # (Auto) 0.46 Baso # (Auto) 0.04 Immature Gran # (Auto) 0.01 Sodium Potassium Chloride Carbon Dioxide Anion Gap BUN Creatinine Est Cr Clr Drug Dosing Est GFR ( Amer) Est GFR (Non-Af Amer) BUN/Creatinine Ratio Glucose POC Glucose 166 H 190 H Calcium Magnesium Stl C. diff Tox B Gene Hospital Course (1) DKA (diabetic ketoacidosis): (2) Clostridium difficile infection: (3) Magnesium deficiency: (4) Below-knee amputation of right lower extremity: (5) Wound of left foot: (6) Aortic stenosis: (7) CAD (coronary artery disease): (8) Diabetes type 1, controlled: (9) Hypokalemia: The patient will require admission to the hospital proceeding as follows: We will initiate an insulin drip via the DKA protocol and obtain a glycemic consult via pharmacy I suspect that the patient's DKA may have been triggered by insulin pump malfunction/dislodgment as noted in the HPI. However, we have not ascertain if patient has any other underlying infectious etiology and will evaluate for this by checking stool studies due to history of C. difficile and also checking for Covid infection as he has had an exposure to this. We will would also be prudent to check blood cultures due to his history of positive blood cultures in June of this year. There is no evidence of urinary tract infection by UA and there is no evidence of pneumonia on chest x-ray. blood cultures No growth after 48 hrs Diabetic management Tolerating p.o. diet Continued outpatient insulin therapy f/u with Endocrinology as scheduled 2. C diff/ Diarrhea: Plan: Due to patient's history of C. difficile we will check stool to see if he has an active C. difficile infection and treat accordingly if this is present scheduled for GI evaluation in 3 weeks On discharge the patient's diarrhea had reduced with no episodes of diarrhea at discharge. On 08/24 the patient's stool was positive for toxin and gene. WBC is normal on 08/27 Continue vancomycin 125 mg p.o. 4 times daily for additional 10 days 3-4 Aortic stenosis: Plan: Patient has a history of aortic valve replacement Most recent echo available for review was from June 2021 that showed a 65% ejection fraction and a well-seated aortic valve prosthesis with a normal gradi ent 5. Wound of left foot, right BKA Plan: Continue local wound care continue with home health, monitoring 6-8 CAD (coronary artery disease) /hypertension/ peripheral vascular disease Plan: Maintain the patient on his home medications including Lipitor, Plavix, aspirin, and metoprolol 9. Dyslipidemia continue atorvastatin 10. Hypothyroidism continue levothyroxine 175 mcg daily 11. below-knee amputation of right lower extremity currently in outpatient wrap and brace. Consultation to Orthopedics if the patient has extended stay, scheduled for orthopedic out patient visit continue following with wound care nurse 12. replete with magnesium 400mg daily., monitor for symptoms of abdominal pain or increase in diarrhea on discharge magnesium was in normal range will discontinue oral supplementation 13. hypokalemia 40 mEq this a.m. read repeat labs in a.m. normal on discharge . Continue outpatient potassium supplementation Recommend recheck lab work at follow-up at his primary care Admission and Anticipated Discharge Date Admission Date: August 24, 2021 Total Time Total Time Spent Total Time Spent (In Minutes): 35 Discharge Plan Discharge Items Patient Disposition: Home - Self-Care Reason For Visit: DAK Discharge Diagnosis: diabetic ketoacidosis C diff Condition on Discharge: Good Activity: Resume your previous activity Lifting: None Bathing: No limitations Bathing Comment: continue his previous instructions from Orthopedics Exercise/Sports: None Weightbearing: Left weightbearing Non-emergency contact: Primary Care Provider Call non-emergency contact if: you have any medication questions, your symptoms worsen, you have a fever, your wound has increased redness, your wound has increased drainage and your wound pain has increased Follow-up/Referrals: Enio Richards III, MD [Physician] - Pablo Barros MD [Primary Care Provider] - Xander Soto MD [Surgeon] - (f/u as scheduled) Diet: Carb Count or DM1 Addtl Attending Provider Instructions: no additional comments Pending Studies at Discharge: No Stand-Alone Forms: My [employer], Smoking Cessation Medications and DC Order Prescriptions: New vancomycin 1,000 mg Recon Soln 125 mg PO Q6 Qty: 40 RF: 0 Continued atorvastatin [Lipitor] 80 mg tablet 80 mg PO HS Qty: 90 RF: 3 clopidogrel [Plavix] 75 mg tablet 75 mg PO QAM Qty: 30 RF: 5 metoprolol tartrate 25 mg tablet 12.5 mg PO BID Qty: 90 RF: 3 potassium chloride 20 mEq tablet extended release 20 meq PO BID Qty: 60 RF: 5 calcitriol [Rocaltrol] 0.25 mcg capsule 0.25 mcg PO QAM Qty: 30 RF: 5 pantoprazole [Protonix] 40 mg tablet,delayed release (DR/EC) 40 mg PO QAM Qty: 30 RF: 5 ferrous sulfate 325 mg (65 mg iron) tablet,delayed release (DR/EC) 325 mg PO BID Qty: 60 RF: 5 folic acid 1 mg tablet 1 mg PO QAM Qty: 30 RF: 5 (DME) Bed Side Commode Misc See Rx Instructions .Route Qty: 1 RF: 0 (DME) Commode rails round See Rx Instructions .Route .MEDSUPPLY Qty: 1 RF: 0 Adult 50 Plus Probiotic 4 billion cell capsule 4,000 mmu cells PO DAILY RF: 0 oxycodone 5 mg tablet 5 mg PO Q12H PRN (Reason: pain, moderate) Qty: 30 RF: 0 hydrocortisone [Proctosol HC] 2.5 % cream with perineal applicator 1 applic EXT BID 10 Days Qty: 30 RF: 1 levothyroxine [Synthroid] 175 mcg tablet 175 mcg PO QAM RF: 0 insulin aspart U-100 [Novolog U-100 Insulin aspart] 100 unit/mL solution 60 unit SQ CONT RF: 0 insulin aspart U-100 [Novolog Flexpen U-100 Insulin] 100 unit/mL (3 mL) Insulin Pen See Rx Instructions .ROUTE .COMPLEX Qty: 3 RF: 0 aspirin [Aspirin Low Dose] 81 mg tablet,delayed release (DR/EC) 81 mg PO QAM RF: 0 acetaminophen [Tylenol Extra Strength] 500 mg tablet 1,000 mg PO TID PRN (Reason: Pain) RF: 0 Discharge Orders: Discharge Order (Routine); Ordered 08/27/21 Ordered By: Chance Wayne Admission Data Admit Date/Time: 08/24/21 21:12 Attending Provider: Chance Wayne Admit Provider: Yisel Wei Primary Care Provider: Pablo Barros Other Providers: Yisel Wei ; [facility] Coding Level of Care Code D/C DAY MANAGEMENT >30 MINS Diagnoses DKA (diabetic ketoacidosis) E13.10 Diabetes mellitus complication detail: without coma Diabetes mellitus type: other specified (including DEB) Clostridium difficile infection A49.8 Magnesium deficiency E61.2 Below-knee amputation of right lower extremity S88.111A Wound of left foot S91.302A Aortic stenosis I35.0 CAD (coronary artery disease) I25.10 Coronary Disease-Associated Artery/Lesion type: [place] artery [place] vs. transplanted heart: [place] heart Associated angina: without angina Diabetes type 1, controlled E10.9 Hypokalemia E87.6
--- NOTE | 2021-08-27 19:29 | Electrocardiogram Report ---
Test Reason : Blood Pressure : / mmHG Vent. Rate : 093 BPM Atrial Rate : 093 BPM P-R Int : 156 ms QRS Dur : 142 ms QT Int : 422 ms P-R-T Axes : 051 -67 025 degrees QTc Int : 524 ms Normal sinus rhythm Left axis deviation Right bundle branch block Inferior infarct (cited on or before 31-JUL-2020) Abnormal ECG When compared with ECG of 30-JUN-2021 12:29, QRS axis Shifted left Confirmed by Bobby Lance ([id number]) on 08/27/2021 7:29:19 PM Referred By: REFERRED SELF Confirmed By:Bobby Lance
== END 2021-08-27 12:37 | disposition home health service (06) | DRG 919 ==
LOC: ED 18:13 → EDINP 21:12 → SUATTDRO 21:12 → EDINP 08-25 00:26
DX: Z95.820 Peripheral vascular angioplasty status with implants and grafts; Z95.3 Presence of xenogenic heart valve; T38.3X6A Underdosing of insulin and oral hypoglycemic [antidiabetic] drugs, initial encounter; I25.10 Atherosclerotic heart disease of native coronary artery without angina pectoris; E61.2 Magnesium deficiency; Z79.890 Hormone replacement therapy; E10.51 Type 1 diabetes mellitus with diabetic peripheral angiopathy without gangrene; Z79.899 Other long term (current) drug therapy; A04.71 Enterocolitis due to Clostridium difficile, recurrent; E10.10 Type 1 diabetes mellitus with ketoacidosis without coma; T85.624A Displacement of insulin pump, initial encounter; Z79.82 Long term (current) use of aspirin; K21.9 Gastro-esophageal reflux disease without esophagitis; Z86.19 Personal history of other infectious and parasitic diseases; I10 Essential (primary) hypertension; E03.9 Hypothyroidism, unspecified; Z95.828 Presence of other vascular implants and grafts; Z86.79 Personal history of other diseases of the circulatory system; Z79.02 Long term (current) use of antithrombotics/antiplatelets; Z20.822 Contact with and (suspected) exposure to COVID-19; L98.9 Disorder of the skin and subcutaneous tissue, unspecified; E87.6 Hypokalemia; Z89.511 Acquired absence of right leg below knee; Z89.422 Acquired absence of other left toe(s); Y82.8 Other medical devices associated with adverse incidents; Z95.1 Presence of aortocoronary bypass graft; E78.5 Hyperlipidemia, unspecified

== ENCOUNTER 2021-11-10 16:14 | Inpatient (IN) ==
[2021-11-10] MEDS ORDERED: SODIUM CHLORIDE 0.9% 1000ML 1,000 ML IV STA (16:33)
[2021-11-10] MEDS ORDERED: SODIUM CHLORIDE 0.9% 500 ML IV STA (16:33)
[2021-11-10] MEDS ORDERED: PIPERACILL/TAZOBAC CONSULT ACTIVE PRN (16:46)
[2021-11-10] MEDS ORDERED: PIPERACILLIN/TAZOBACTAM 4.5 GM/120 ML BAG IV ONE (16:46)
[2021-11-10] MEDS ORDERED: DAPTOmycin 425 MG in SYRINGE 0 ML IV ONE (16:46)
[2021-11-10 16:55] LABS: Basophils # (auto) 0.04 K/uL (0-0.2); Basophils % (auto) 0.2 %; Eosinophils # (auto) 0.06 K/uL (0-0.5); Eosinophils % (auto) 0.3 %; Hematocrit (blood only) 38.2 % (42-52); Hemoglobin 12.6 g/dL (14.0-18.0); Immature Granulocytes # (auto) 0.05 K/uL (0.00-0.02); Immature Granulocytes % (auto) 0.3 %; Lymphocytes # (auto) 2.57 K/uL (1.2-3.4); Mean Corpuscular Hemoglobin 28.8 pg (25-34); Mean Corpuscular Volume 87.4 fL (80-100); Mean Platelet Volume 9.7 fL (7.4-10.4); Monocytes # (auto) 1.58 K/uL (0.11-0.59); Monocytes % (auto) 8.6 %; Neutrophils # (auto) 14.06 K/uL (1.4-6.5); Neutrophils % (auto) 76.6 %; Platelet Count 345 K/uL (130-400); RDW Coefficient of Variation 14.3 % (11.5-14.5); RDW Standard Deviation 46.1 fL (36.4-46.3); Red Blood Count 4.37 M/uL (4.7-6.1); White Blood Count 18.36 K/uL (4.8-10.8)
--- NOTE | 2021-11-10 17:08 | Emergency Department Note ---
Impression & Plan Cellulitis of foot, left, Diabetic ulcer of left foot, Hypotension ED Provider Note INFORMANT: Patient ED PROVIDER(S): Hudson Thompson MD CHIEF COMPLAINT: Left foot infection PLAN: Disposition: Admitted Condition: Good Outpatient prescription management: none Referral: None MEDICAL DECISION MAKING: Patient presented from the wound center due to concerns of left foot infection. On physical examination there was cellulitis present. His blood pressure was borderline low. Laboratory testing including cultures were performed. Broad- spectrum antibiotics were given. I did discuss this with the ED pharmacist. Patient received a fluid bolus and hypotension resolved. Lactate was normal. White count was elevated concerning for infection. The patient had a elevated blood glucose. I did order 10 units of IV insulin however the patient used his insulin pump just prior to that to correct. The IV insulin was held. Further management in the hospital will be necessary. [facility] Patient will be admitted by Dr. Carrillo for further management. Triage Nursing notes reviewed and agree them. Vital Signs: reviewed and remarkable for borderline hypotension Differential diagnosis: Cellulitis, abscess, MRSA infection, DVT, necrotizing fasciitis, dermatitis, drug eruption, allergic reaction, as well as other pathologies. Diagnostics interpreted by me: ECG: none Cardiac Monitoring: Cardiac monitoring ordered by me: The patient was placed on continuous cardiac monitoring and observed. It revealed a normal sinus rhythm at 82 beats per minute without ectopy or evidence of dysrhythmia. Imaging studies: X-ray imaging of the left foot negative for subcutaneous air or osteomyelitis. I refer you to the EMR for further details. HPI: The patient is a 66 year old diabetic male who presents to the Emergency Room with complaints of left foot infection. This started several weeks ago and is rapidly worsening. Patient has ulcerations and neuropathy on the left foot that just developed. Previously had a arterial surgery done by Dr. Eason for circulation issues on that side. He noted after his September follow-up he was doing relatively well without ulcerations. They rapidly developed in that time. He was seen by the wound center today and they were concerned due to his poor circulation, diabetes, and presence of cellulitis that he was in need of further management. The patient also notes the following associated symptoms, none. The patient has been given no medication for relieving factors. Current pain is rated as 3/10. Pt denies LOC, headache, fevers, chills, diaphoresis, visual changes, neck pain, chest pain, breathing difficulties, nausea, vomiting, abdominal pain, back pain, melena, hematochezia, urinary symptoms, numbness, weakness, lymphadenopathy, or other complaints. ROS: See above HPI for pertinent positives & negatives. A total of 10 systems reviewed and were otherwise negative. PAST MEDICAL HISTORY:See Below , diabetes, PAD PAST SURGICAL HISTORY:See Below, right BKA FAMILY HISTORY:See Below SOCIAL HISTORY:See Below, HOME MEDICATIONS:See Below ALLERGIES:See Below VITALS:See Below PHYSICAL EXAMINATION: GENERAL: Awake, alert, well-appearing, in no distress HENT: Normocephalic, atraumatic. Oropharynx unremarkable. EYES: Normal conjunctiva. Sclera non-icteric. NECK: Inspection normal. Non-tender. Supple. No nuchal rigidity. FROM. No masses. RESPIRATORY: Clear to auscultation. No wheezes. No rales. Normal respiratory effort. CARDIAC: Normal rate. Normal rhythm. No murmurs. No rubs. Extremities warm and well perfused. Pulses equal. No JVD. GI: Soft, non-distended. No tenderness to palpation. No rebound or guarding. No masses. RECTAL: Deferred. MUSCULOSKELETAL: Atraumatic. Chest examination reveals no tenderness. The back is symmetrical on inspection without obvious abnormality. There is no CVA tenderness to palpation. No joint edema. LOWER EXTREMITIES: Right BKA present. Left lower leg examination reveals a hea led incision in the medial aspect of the lower leg from his vascular surgery without signs of infection. There is a cellulitis of the left foot. There are multiple ulcerations that are mostly dry and black in nature. There is no significant sensation present in the toes. 2-second cap refill. SKIN: No other rash or jaundice noted. Hudson Thompson MD Past Med/Surg History Medical History (Updated 11/10/21 @ 18:45 by Susie Wang PA-C) Aortic stenosis s/p porcine valve replacement (2016) with CABG x 1 CAD (coronary artery disease) s/p CABG x 1 (2016) CKD (chronic kidney disease) stage 2, GFR 60-89 ml/min Diabetes mellitus type 1 + Insulin pump Diabetic nephropathy associated with type 1 diabetes mellitus Dyslipidemia GERD (gastroesophageal reflux disease) History of Clostridium difficile infection History of osteomyelitis Hypertension Hypothyroidism Insulin pump in place Osteoarthritis Osteoporosis Proliferative diabetic retinopathy associated with type 1 diabetes mellitus PVD (peripheral vascular disease) s/p B/L iliac artery stents (2014), R common/external iliac (2017), R common femoral endarterectomy (11/2018) with bovine patch. Left femoral to PT composite bypass graft (06/2020) VRE infection (vancomycin resistant enterococcus), with multi-drug resistance hx Surgical History Below-knee amputation of right lower extremity RETURNED HOME FROM [facility] 07/30/21 H/O cataract extraction R/L H/O endarterectomy R common femoral (11/2018) H/O vascular surgery Right Femoral to Posterior tibial Prosthetic Bypass Graft(Right) History of ankle surgery LEFT ANKLE +HARDWARE REMOVED History of aortic valve replacement [place] [place] History of arterial bypass of lower extremity Left femoral to PT composite bypass graft (06/2020) History of cardiac cath x2, most recent 2016 > no stents (subsequent CABG with AVR in 2015) History of carpal tunnel release R/L History of colonoscopy History of coronary artery bypass graft CABG x1 + AVR (2016) History of esophagogastroduodenoscopy (EGD) History of myringotomy History of open reduction and internal fixation (ORIF) procedure LLE () History of skin graft Split Thickness Skin Graft of Left Lateral Ankle (11/18/20): LMA#5, atraumatic x1 at [facility] History of tonsillectomy History of tooth extraction History of umbilical hernia repair Hx of surgical procedure Left Leg Wound Debridement and Irrigation S/P femoropopliteal bypass surgery Right fem-pop bypass graft (01/19/21): Grade 2 view, MAC 3.0, ETT 8.0 at [facility] S/P insertion of iliac artery stent B/L iliac stent placement (2014) 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 Family History Brother Family history of diabetes mellitus Sister Family history of diabetes mellitus Mother Family history of diabetes mellitus Grandmother (Maternal) Family history of diabetes mellitus Uncle Family hx of colon cancer Colorectal cancer Father Family history of esophageal cancer Sister Family history of diabetes mellitus Other No family history of adverse response to anesthesia Denies family history of Ovarian cancer Prostate cancer Myocardial infarction Breast cancer Social History Smoking Status: Never smoker Tobacco Type: Cigarettes and Smokeless Tobacco (Dip or Chew) Cigarettes Per Day: Quit 15 years ago; Second Hand Exposure: No; Hx Alcohol Use: No Hx Substance Use: No Preferred Language: Thai Communication Ability: Effective Visual Impairment: Limited Hearing Ability: Hard of Hearing Putty 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 (5628-2061, roughly), protein drinks caffeine: Yes (coffee, rarely ) during the past year weight has: remained stable Dental Care, Regularly: No Seatbelt Use: always Sunscreen Use: No Gender Identity: Male Assistive Devices: Denture - Upper, Glasses, Walker and Wheelchair Allergies Allergies Allergy/AdvReac Type Severity Reaction Status Date / Time No Known Allergies Allergy Unknown Verified 11/10/21 13:14 Home Meds Home Medications Medication Instructions Recorded Confirmed aspirin 81 mg tablet,delayed 81 mg PO QAM 05/04/21 11/10/21 release (Aspirin Low Dose) levothyroxine 175 mcg tablet 175 mcg PO QAM 06/30/21 11/10/21 (Synthroid) lactobacillus combination no.9 4 4,000 mmu cells PO DAILY 08/04/21 11/10/21 billion cell capsule (Adult 50 Plus Probiotic) Previous Rx's Medication Instructions Recorded atorvastatin 80 mg tablet (Lipitor) 80 mg PO HS #90 tab 11/25/20 clopidogrel 75 mg tablet (Plavix) 75 mg PO QAM #30 tab 01/28/21 metoprolol tartrate 25 mg tablet 12.5 mg PO BID #90 tab 02/09/21 calcitriol 0.25 mcg capsule 0.25 mcg PO QAM #30 cap 04/27/21 (Rocaltrol) pantoprazole 40 mg tablet,delayed 40 mg PO QAM #30 tab 06/15/21 release (Protonix) insulin aspart U-100 100 unit/mL See Rx Instructions .ROUTE 07/14/21 (3 mL) subcutaneous pen (Novolog .COMPLEX #3 ml Flexpen U-100 Insulin aspart) ferrous sulfate 325 mg (65 mg 325 mg PO BID #60 tab 08/03/21 iron) tablet,delayed release folic acid 1 mg tablet 1 mg PO QAM #30 tab 08/03/21 Bed Side Commode #1 ea 08/09/21 Commode rails #1 ea 08/10/21 potassium chloride 20 mEq 20 meq PO BID #60 tab 09/20/21 tablet,extended release insulin aspart U-100 100 unit/mL 75 unit SQ CONT 90 Days #70 ml 10/14/21 subcutaneous solution (Novolog U-100 Insulin aspart) Results & Data (ED) Vital Signs Vital Signs - 24 hr 11/10/21 16:15 11/10/21 18:34 Temperature 36.6 C Temperature Source Temporal Artery Scan Pulse Rate 79 Pulse Rate [Finger] 82 Respiratory Rate 16 16 Blood Pressure 96/53 L Blood Pressure [Left Arm] 161/76 H Blood Pressure Mean 67 Blood Pressure Mean [Left Arm] 104 Pulse Oximetry 94 95 Oxygen Delivery Method Room Air Sepsis Recent Fever Within 48 Hours No Sepsis New/Unexplained Change in Mental Status N/A Sepsis Action Taken by Nursing No Action Required Laboratory Data Result diagrams: 11/10/21 16:34 11/10/21 16:34 Lab Results 11/10/21 11/10/21 11/10/21 Range/Units 16:34 16:34 16:34 WBC 18.36 H (4.8-10.8) K/uL RBC 4.37 L (4.7-6.1) M/uL Hgb 12.6 L (14.0-18.0) g/dL Hct 38.2 L (42-52) % MCV 87.4 (80-100) fL MCH 28.8 (25-34) pg MCHC 33.0 (32-36) g/dL RDW Std Deviation 46.1 (36.4-46.3) fL RDW Coeff of Chan 14.3 (11.5-14.5) % Plt Count 345 (130-400) K/uL MPV 9.7 (7.4-10.4) fL Immature Gran % (Auto) 0.3 % Neut % (Auto) 76.6 % Lymph % (Auto) 14.0 % [place] % (Auto) 8.6 % Eos % (Auto) 0.3 % Baso % (Auto) 0.2 % Neut # (Auto) 14.06 H (1.4-6.5) K/uL Lymph # (Auto) 2.57 (1.2-3.4) K/uL [place] # (Auto) 1.58 H (0.11-0.59) K/uL Eos # (Auto) 0.06 (0-0.5) K/uL Baso # (Auto) 0.04 (0-0.2) K/uL Immature Gran # (Auto) 0.05 H (0.00-0.02) K/uL ESR 71 H (0-20) mm/hr Sodium 132 L (136-145) mmol/L Potassium 4.6 (3.5-5.1) mmol/L Chloride 97 L (98-107) mmol/L Carbon Dioxide 23 (21-32) mmol/L Anion Gap 12 H (3-11) BUN 19 (6-23) mg/dl Creatinine 1.01 (0.6-1.4) mg/dl Est Cr Clr Drug Dosing 71.5 ml/min Est GFR ( Amer) 90.7 ml/min Est GFR (Non-Af Amer) 78.2 ml/min BUN/Creatinine Ratio 18.8 (10-20) Glucose 349 H* (70-99(Fasting)) mg/dl POC Glucose (70-99) mg/dl Lactate (0.4-2.0) mmol/L Calcium 9.0 (8.5-10.1) mg/dl Total Bilirubin 1.3 H (0.2-1.0) mg/dl AST 18 (13-39) U/L ALT 16 (7-52) U/L Alkaline Phosphatase 131 H (34-104) U/L C-Reactive Protein 7.92 H (0-0.5) mg/dl Total Protein 7.4 (6.0-8.3) gm/dl Albumin 3.7 (3.4-5.0) gm/dl Globulin 3.7 (2.5-4.0) gm/dl Albumin/Globulin Ratio 1.0 (0.9-2) Procalcitonin (0-0.5) ng/ml Urine Color Urine Appearance (Clear) Urine pH (4.5-7.5) Ur Specific [place] (1.000-1.030) Urine Protein (Negative) Urine Glucose (UA) (Negative) Urine Ketones (Negative) Urine Blood (Negative) Urine Nitrite (Negative) Urine Bilirubin (Negative) Urine Urobilinogen (Negative) Ur Leukocyte Esterase (Negative) SARS-CoV-2, RNA, NAAT (NEGATIVE) 11/10/21 11/10/21 11/10/21 Range/Units 16:34 17:09 17:27 WBC (4.8-10.8) K/uL RBC (4.7-6.1) M/uL Hgb (14.0-18.0) g/dL Hct (42-52) % MCV (80-100) fL MCH (25-34) pg MCHC (32-36) g/dL RDW Std Deviation (36.4-46.3) fL RDW Coeff of Chan (11.5-14.5) % Plt Count (130-400) K/uL MPV (7.4-10.4) fL Immature Gran % (Auto) % Neut % (Auto) % Lymph % (Auto) % [place] % (Auto) % Eos % (Auto) % Baso % (Auto) % Neut # (Auto) (1.4-6.5) K/uL Lymph # (Auto) (1.2-3.4) K/uL [place] # (Auto) (0.11-0.59) K/uL Eos # (Auto) (0-0.5) K/uL Baso # (Auto) (0-0.2) K/uL Immature Gran # (Auto) (0.00-0.02) K/uL ESR (0-20) mm/hr Sodium (136-145) mmol/L Potassium (3.5-5.1) mmol/L Chloride (98-107) mmol/L Carbon Dioxide (21-32) mmol/L Anion Gap (3-11) BUN (6-23) mg/dl Creatinine (0.6-1.4) mg/dl Est Cr Clr Drug Dosing ml/min Est GFR ( Amer) ml/min Est GFR (Non-Af Amer) ml/min BUN/Creatinine Ratio (10-20) Glucose (70-99(Fasting)) mg/dl POC Glucose 365 H* (70-99) mg/dl Lactate 1.0 (0.4-2.0) mmol/L Calcium (8.5-10.1) mg/dl Total Bilirubin (0.2-1.0) mg/dl AST (13-39) U/L ALT (7-52) U/L Alkaline Phosphatase (34-104) U/L C-Reactive Protein (0-0.5) mg/dl Total Protein (6.0-8.3) gm/dl Albumin (3.4-5.0) gm/dl Globulin (2.5-4.0) gm/dl Albumin/Globulin Ratio (0.9-2) Procalcitonin 0.08 (0-0.5) ng/ml Urine Color Urine Appearance (Clear) Urine pH (4.5-7.5) Ur Specific [place] (1.000-1.030) Urine Protein (Negative) Urine Glucose (UA) (Negative) Urine Ketones (Negative) Urine Blood (Negative) Urine Nitrite (Negative) Urine Bilirubin (Negative) Urine Urobilinogen (Negative) Ur Leukocyte Esterase (Negative) SARS-CoV-2, RNA, NAAT (NEGATIVE) 11/10/21 11/10/21 11/10/21 Range/Units 17:43 18:05 18:47 WBC (4.8-10.8) K/uL RBC (4.7-6.1) M/uL Hgb (14.0-18.0) g/dL Hct (42-52) % MCV (80-100) fL MCH (25-34) pg MCHC (32-36) g/dL RDW Std Deviation (36.4-46.3) fL RDW Coeff of Chan (11.5-14.5) % Plt Count (130-400) K/uL MPV (7.4-10.4) fL Immature Gran % (Auto) % Neut % (Auto) % Lymph % (Auto) % [place] % (Auto) % Eos % (Auto) % Baso % (Auto) % Neut # (Auto) (1.4-6.5) K/uL Lymph # (Auto) (1.2-3.4) K/uL [place] # (Auto) (0.11-0.59) K/uL Eos # (Auto) (0-0.5) K/uL Baso # (Auto) (0-0.2) K/uL Immature Gran # (Auto) (0.00-0.02) K/uL ESR (0-20) mm/hr Sodium (136-145) mmol/L Potassium (3.5-5.1) mmol/L Chloride (98-107) mmol/L Carbon Dioxide (21-32) mmol/L Anion Gap (3-11) BUN (6-23) mg/dl Creatinine (0.6-1.4) mg/dl Est Cr Clr Drug Dosing ml/min Est GFR ( Amer) ml/min Est GFR (Non-Af Amer) ml/min BUN/Creatinine Ratio (10-20) Glucose (70-99(Fasting)) mg/dl POC Glucose 375 H* (70-99) mg/dl Lactate (0.4-2.0) mmol/L Calcium (8.5-10.1) mg/dl Total Bilirubin (0.2-1.0) mg/dl AST (13-39) U/L ALT (7-52) U/L Alkaline Phosphatase (34-104) U/L C-Reactive Protein (0-0.5) mg/dl Total Protein (6.0-8.3) gm/dl Albumin (3.4-5.0) gm/dl Globulin (2.5-4.0) gm/dl Albumin/Globulin Ratio (0.9-2) Procalcitonin (0-0.5) ng/ml Urine Color Yellow Urine Appearance Clear (Clear) Urine pH 5.5 (4.5-7.5) Ur Specific [place] 1.018 (1.000-1.030) Urine Protein Negative (Negative) Urine Glucose (UA) 2+ H (Negative) Urine Ketones 2+ H (Negative) Urine Blood Negative (Negative) Urine Nitrite Negative (Negative) Urine Bilirubin Negative (Negative) Urine Urobilinogen Negative (Negative) Ur Leukocyte Esterase Negative (Negative) SARS-CoV-2, RNA, NAAT NEGATIVE (NEGATIVE) Administered Medications Sodium Chloride (Nss 1000ml) 1,000 mls @ 125 mls/hr IV .Q8H STA Stop: 11/11/21 00:32 Last Admin: 11/10/21 16:55 Dose: 125 mls/hr Documented by: [id number] Discontinued Medications Sodium Chloride (Nss) 500 mls @ 999 mls/hr IV .Q31M STA Stop: 11/10/21 17:03 Last Infusion: 11/10/21 18:01 Dose: 0 mls/hr Documented by: [id number] Admin: 11/10/21 16:55 Dose: 999 mls/hr Documented by: [id number] Piperacillin Sod/Tazobactam Sod (Zosyn) 4.5 gm in 120 mls @ 240 mls/hr IV NOW O NE Stop: 11/10/21 17:15 Last Infusion: 11/10/21 18:01 Dose: 0 mls/hr Documented by: [id number] Admin: 11/10/21 17:22 Dose: 240 mls/hr Documented by: [id number] Daptomycin 425 mg/ Syringe 8.5 mls @ 4.25 mls/min IV NOW ONE; Protocol Stop: 11/10/21 16:47 Last Admin: 11/10/21 18:54 Dose: 4.25 mls/min Documented by: [id number] Insulin Human Regular (Novolin-R Insulin Per Unit Charge) 10 units IV NOW STA Stop: 11/10/21 17:26 Last Admin: 11/10/21 17:40 Dose: Not Given Documented by: [id number] Imaging Data Radiologist's Impression: Foot X-Ray 11/10/21 16:46 LEFT FOOT 3 VIEWS CLINICAL HISTORY: Cellulitis. Diabetic ulcers. FINDINGS: 3 views of the left foot are compared to study dated 11/03/2021. The skeletal structures are osteopenic. There has been amputation of the fifth toe. No acute fracture is identified. No bony erosion or periostitis is seen. Moderate osteoarthritic change is noted at the first metatarsophalangeal joint. Moderate to advanced degenerative change is also seen throughout the ankle, midfoot, and hindfoot. Degenerative spurring is noted along the dorsal aspect of the tarsal bones. Soft tissue edema is seen throughout the forefoot. Advanced atherosclerotic calcification is noted in the regional arteries. IMPRESSION: 1. Soft tissue swelling with no acute bony abnormality identified. 2. Osteopenia with postoperative and advanced degenerative change as above. Dictated: 11/10/2021 5:24 PM Transcribed: 11/10/2021 5:34 PM Prema [id number] [email or web address] Electronically signed by: Tae Pizarro M.D. 11/10/2021 5:49 PM Discharge Plan Visit Data Chief Complaint: Infection, Wound Stated Complaint: REF BY WOUND CLINIC, INFECTION IN LT FOOT ED Provider: Hudson Thompson Discharge Problem: Cellulitis of foot, left, Diabetic ulcer of left foot, Hypotension Patient Disposition: Admitted As Inpatient Discharge Instructions Interventions: ED Discharge Assessment Last Done: 11/10/21 19:31 Forms Stand Alone Forms: My [facility] [address] Prescriptions Prescriptions: No Action atorvastatin [Lipitor] 80 mg tablet 80 mg PO HS Qty: 90 RF: 3 clopidogrel [Plavix] 75 mg tablet 75 mg PO QAM Qty: 30 RF: 5 metoprolol tartrate 25 mg tablet 12.5 mg PO BID Qty: 90 RF: 3 calcitriol [Rocaltrol] 0.25 mcg capsule 0.25 mcg PO QAM Qty: 30 RF: 5 pantoprazole [Protonix] 40 mg tablet,delayed release (DR/EC) 40 mg PO QAM Qty: 30 RF: 5 ferrous sulfate 325 mg (65 mg iron) tablet,delayed release (DR/EC) 325 mg PO BID Qty: 60 RF: 5 folic acid 1 mg tablet 1 mg PO QAM Qty: 30 RF: 5 (DME) Bed Side Commode Misc See Rx Instructions .Route Qty: 1 RF: 0 (DME) Commode rails round See Rx Instructions .Route .MEDSUPPLY Qty: 1 RF: 0 potassium chloride 20 mEq tablet extended release 20 meq PO BID Qty: 60 RF: 5 insulin aspart U-100 [Novolog U-100 Insulin aspart] 100 unit/mL solution 75 unit SQ CONT 90 Days Qty: 70 RF: 3 Adult 50 Plus Probiotic 4 billion cell capsule 4,000 mmu cells PO DAILY RF: 0 levothyroxine [Synthroid] 175 mcg tablet 175 mcg PO QAM RF: 0 insulin aspart U-100 [Novolog Flexpen U-100 Insulin] 100 unit/mL (3 mL) Insulin Pen See Rx Instructions .ROUTE .COMPLEX Qty: 3 RF: 0 aspirin [Aspirin Low Dose] 81 mg tablet,delayed release (DR/EC) 81 mg PO QAM RF: 0 Referrals Referrals: Ivelisse Oconnell MD [Primary Care Provider] -
[2021-11-10 17:21] LABS: Albumin Level 3.7 gm/dl (3.4-5.0); BUN Creatinine Ratio 18.8 (10-20); Bilirubin,Total 1.3 mg/dl (0.2-1.0); C Reactive Protein 7.92 mg/dl (0-0.5); Creatinine Clr Calc Pharmacy 71.5 ml/min; Est GFR (African American) 90.7 ml/min; Est GFR (Non-African American) 78.2 ml/min; Globulin 3.7 gm/dl (2.5-4.0); Potassium 4.6 mmol/L (3.5-5.1); Total Protein 7.4 gm/dl (6.0-8.3)
[2021-11-10] MEDS ORDERED: NovoLIN-R INSULIN PER UNIT CHARGE IV STA (17:25)
--- NOTE | 2021-11-10 17:39 | History & Physical Report ---
Date of Service November 10, 2021 Assessment & Plan (1) Diabetic ulcer of left foot: Plan: -LLE erythema and edema that goes slightly above malleolus with several skin fissures, necrotic ulcerated wound on 1.) medial aspect of L great toe with eschar, 2.) medial aspect of third toe with some drainage and eschar, 3.) on upper lateral border of left sole with eschar, and 4.) on heel of left foot with necrotic tissue. -Pulses intact, extremity without pallor or decreased temperature, pt has diminished sensation at baseline, but has some sensation along medial and lateral aspect of foot. Minimal pain. -WBC 18, elevated CRP and ESR, lactate 1.0, PCT .08. Patient is otherwise asymptomatic, no fever/chills. -Foot XR--> Soft tissue swelling with no acute bony abnormality identified. -LE U/S ordered. -Wound culture obtained, pt started on daptomycin and zosyn based on results from previous wound cultures. -Orthopedic surgery has been consulted, appreciate their recommendations. (2) Diabetes mellitus type 1: Plan: -Uncontrolled, has insulin pump. Per wound care note, sugars run 140s-250s. Sugar was 349 in ED today, he has received 10 units of insulin. -Pharmacy consult placed for glycemic management. -Heart healthy + CC diet. (3) CAD (coronary artery disease): Plan: -s/p CABG x 1 (2015). No chest pain today. -Continue statin, DAPT w/ ASA and Plavix, and metoprolol. (4) PVD (peripheral vascular disease): Plan: -B/L iliac artery stents (2014), R common/external iliac (2017), R common femoral endarterectomy (11/2018) with bovine patch. Left femoral to PT composite bypass graft (06/2020). (5) Hypertension: Plan: -Patient initially hypotensive in ED, did take home BP meds. Received 1L NS IVF bolus and started on maintenance IVF. -Can give night dose of metoprolol if pt's SBP > 100. (6) Dyslipidemia: Plan: -Continue statin. (7) Hypothyroidism: Plan: -Continue levothyroxine. (8) Diabetic nephropathy associated with type 1 diabetes mellitus: Plan: -Documented hx of CKD stage 3, Cr and BUN appear wnl today. -Continue daily iron, calcitrol, and potassium supplement. -Renally dose all medications, avoid nephrotoxic agents. -Trend BMP daily. (9) Hyponatremia: Plan: -Na+ 132 in ED, pt is not symptomatic, no weakness, confusion, myalgias, nausea, vomiting. -Receiving IVF. Will repeat BMP in AM. (10) Folate deficiency: Plan: -Continue folic acid supplementation. (11) Below-knee amputation of right lower extremity: Plan: -June 2021. No acute issues. -Follows with Dr. Soto History of Present Illness Chief Complaint: left foot wound infection Primary Care Provider: Ivelisse Oconnell MD 66 y/o M w PMH of poorly controlled DM1 with diabetic foot ulcers, PAD, CAD s/p CABG X1 in 2016 CKD stage III, hypertension, aortic stenosis s/p porcine valve replacement in 2016, osteoporosis, and hypothyroidism who presents to the ED directly from the wound care clinic due to several necrotic, ulcerative wounds to his left foot. Patient has been following with Dr. Soto post right BKA in June 2021 and most recently developed a gangrenous area to the medial aspect of the left great toe.Patient was last seen by orthopedics on 11/03/2021 where referral was placed to the wound clinic for the toe. Since that last orthopedic visit he has developed "black areas" to the 3rd toe, plantar surface of the foot and heel. Erythema has developed to the dorsal surface of the left foot over the last 2 weeks with increasing pain to the left heel noted this week. Patient is currently not on antibiotics or been applying a dressing to the wounds. Patient is also followed by vascular surgery, he had undergone a prior left femoral distal bypass [address] Eason as well as a failed right femoropopliteal bypass in 2020. Besides the development of several wounds, patient has otherwise felt well, he denies fever/chills, chest pain, palpitations, SOB, nausea, vomiting, abdominal pain, weakness. He denies any recent injury to his foot, denies pallor, decreased temperature, or significant pain at left foot or ankle. In ED, pt was initially normotensive with BP 140/83, however he apparently became borderline hypotensive with lowest BP 96/53. He received a 1L NS bolus and maintenance fluids, SBP now in 150s. VS otherwise within normal limits and stable, pt is afebrile. CBC with WBC 18.36, Hgb 12.6 appears to be at baseline. ESR 71, CRP 7.92, PCT 0.08, lactate 1.0. CMP with Na+ 132, Cl 97, glucose 349, Tbili 1.3, alk phos 131 which is chronically elevated. Left foot XR significant for soft tissue swelling w/o acute bony abnormalities ID'd, osteopenia with post-op and advanced degenerative changes. Wound culture obtained, pending. In addition to IVF, pt received 10 units insulin, was started on Daptomycin and Zosyn based on growth from previous cultures. Hospitalist service was consulted for evaluation and admission. Allergies Allergy/AdvReac Type Severity Reaction Status Date / Time No Known Allergies Allergy Unknown Verified 11/10/21 13:14 Home Medications Medication Instructions Recorded Confirmed Type atorvastatin 80 mg tablet (Lipitor) 80 mg PO HS #90 tab 11/25/20 11/10/21 Rx clopidogrel 75 mg tablet (Plavix) 75 mg PO QAM #30 tab 01/28/21 11/10/21 Rx metoprolol tartrate 25 mg tablet 12.5 mg PO BID #90 tab 02/09/21 11/10/21 Rx calcitriol 0.25 mcg capsule 0.25 mcg PO QAM #30 cap 04/27/21 11/10/21 Rx (Rocaltrol) aspirin 81 mg tablet,delayed 81 mg PO QAM 05/04/21 11/10/21 History release (Aspirin Low Dose) pantoprazole 40 mg tablet,delayed 40 mg PO QAM #30 tab 06/15/21 11/10/21 Rx release (Protonix) levothyroxine 175 mcg tablet 175 mcg PO QAM 06/30/21 11/10/21 History (Synthroid) insulin aspart U-100 100 unit/mL See Rx Instructions .ROUTE 07/14/21 11/10/21 Rx (3 mL) subcutaneous pen (Novolog .COMPLEX #3 ml Flexpen U-100 Insulin aspart) ferrous sulfate 325 mg (65 mg 325 mg PO BID #60 tab 08/03/21 11/10/21 Rx iron) tablet,delayed release folic acid 1 mg tablet 1 mg PO QAM #30 tab 08/03/21 11/10/21 Rx lactobacillus combination no.9 4 4,000 mmu cells PO DAILY 08/04/21 11/10/21 History billion cell capsule (Adult 50 Plus Probiotic) Bed Side Commode #1 ea 08/09/21 11/10/21 Rx Commode rails #1 ea 08/10/21 11/10/21 Rx potassium chloride 20 mEq 20 meq PO BID #60 tab 09/20/21 11/10/21 Rx tablet,extended release insulin aspart U-100 100 unit/mL 75 unit SQ CONT 90 Days #70 ml 10/14/21 11/10/21 Rx subcutaneous solution (Novolog U-100 Insulin aspart) Past Med/Surg History Medical History (Updated 11/10/21 @ 18:45 by Susie Wang PA-C) Aortic stenosis s/p porcine valve replacement (2015) with CABG x 1 CAD (coronary artery disease) s/p CABG x 1 (2015) CKD (chronic kidney disease) stage 2, GFR 60-89 ml/min Diabetes mellitus type 1 + Insulin pump Diabetic nephropathy associated with type 1 diabetes mellitus Dyslipidemia GERD (gastroesophageal reflux disease) History of Clostridium difficile infection History of osteomyelitis Hypertension Hypothyroidism Insulin pump in place Osteoarthritis Osteoporosis Proliferative diabetic retinopathy associated with type 1 diabetes mellitus PVD (peripheral vascular disease) s/p B/L iliac artery stents (2014), R common/external iliac (2017), R common femoral endarterectomy (11/2018) with bovine patch. Left femoral to PT composite bypass graft (06/2020) VRE infection (vancomycin resistant enterococcus), with multi-drug resistance hx Surgical History Below-knee amputation of right lower extremity RETURNED HOME FROM [facility] 07/30/21 H/O cataract extraction R/L H/O endarterectomy R common femoral (11/2018) H/O vascular surgery Right Femoral to Posterior tibial Prosthetic Bypass Graft(Right) History of ankle surgery LEFT ANKLE +HARDWARE REMOVED History of aortic valve replacement [place] [place] History of arterial bypass of lower extremity Left femoral to PT composite bypass graft (06/2020) History of cardiac cath x2, most recent 2016 > no stents (subsequent CABG with AVR in 2015) History of carpal tunnel release R/L History of colonoscopy History of coronary artery bypass graft CABG x1 + AVR (2016) History of esophagogastroduodenoscopy (EGD) History of myringotomy History of open reduction and internal fixation (ORIF) procedure LLE () History of skin graft Split Thickness Skin Graft of Left Lateral Ankle (11/18/20): LMA#5, atraumatic x1 at [facility] History of tonsillectomy History of tooth extraction History of umbilical hernia repair Hx of surgical procedure Left Leg Wound Debridement and Irrigation S/P femoropopliteal bypass surgery Right fem-pop bypass graft (01/19/21): Grade 2 view, MAC 3.0, ETT 8.0 at [facility] S/P insertion of iliac artery stent B/L iliac stent placement (2014) 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 Family History Brother Family history of diabetes mellitus Sister Family history of diabetes mellitus Mother Family history of diabetes mellitus Grandmother (Maternal) Family history of diabetes mellitus Uncle Family hx of colon cancer Colorectal cancer Father Family history of esophageal cancer Sister Family history of diabetes mellitus Other No family history of adverse response to anesthesia Denies family history of Ovarian cancer Prostate cancer Myocardial infarction Breast cancer Social History Smoking Status: Former smoker Tobacco Type: Cigarettes and Smokeless Tobacco (Dip or Chew) Cigarettes Per Day: Quit 15 years ago; Second Hand Exposure: No; Hx Alcohol Use: No Hx Substance Use: No Preferred Language: Czech Communication Ability: Effective Visual Impairment: Limited Hearing Ability: Hard of Hearing Tavern Car Attendant Required: No Beliefs That Will Affect Care: None marital status: Current Living Situation: Other Current Living Situation Comment: lives with roomate in apartment with 3 steps current occupational status: disabled How many Children do You have: 2 How many Children do You have Comment: family assists with care, also is part of the waiver program so the pt's roommate is able to assist with care through this program Other Information That Helps Us Care for You: No Feels Safe at Home: Yes Safety Concerns: Feels Safe At This Time Childhood Exposure to Second-Hand Smoke: Yes Diet Comment: Carb Counts. ([id number], roughly), protein drinks caffeine: Yes (coffee, rarely ) during the past year weight has: remained stable Dental Care, Regularly: No Seatbelt Use: always Sunscreen Use: No Gender Identity: Male Assistive Devices: Denture - Upper, Glasses and Prosthesis Review of Systems Review of Systems: Constitutional: No fever, sweats or chills Eyes: No diplopia, no worsening or blurred vision ENT: normal hearing, no trouble swallowing Respiratory: No cough, sputum, dyspnea at rest or on exertion Cardiovascular: No chest pain, tightness or palpitations Abdomen: No pain, nausea, vomiting, diarrhea or constipation Musculoskeletal: left foot erythema with development of multiple ulcerative, necrotic wounds over the past 2 weeks; otherwise no joint pain, calf pain, swelling Neurologic: No weakness, numbness/tingling, or balance problems Psychiatric: No anxiety or depression Skin: No rash or itch Physical Exam Physical Exam: General: awake, alert, no apparent distress Head: Normocephalic, atraumatic ENT: PERRL, EOMI, no pharyngeal exudate, mucous membranes moist Chest: Clear to auscultation, on room air, no adventitious breath sounds Cardiac: Regular rate and rhythm, no murmur, no JVD, normal peripheral pulses, good capillary refill Abdominal: NABS x 4 quadrants, soft, nontender to palpation, no rebound, guarding or tenderness Extremities: LLE erythema and edema that goes slightly above malleolus with several skin fissures, necrotic ulcerated wound on 1.) medial aspect of L great toe with eschar, 2.) medial aspect of third toe with some drainage and eschar, 3.) on upper lateral border of left sole with eschar, and 4.) on heel of left foot with necrotic tissue. Right BKA Psych: Normal mood and affect Neuro: AAO x 3, strength intact bilaterally and rated 5/5, no motor deficits, speech is clear, no peripheral sensory deficits Skin: no rash or erythema other than as documented above Results & Data Results & Data ([facility]) Vital Signs (Past 12 Hours) Vital Signs Temp Pulse Resp BP Pulse Ox 11/10/21 16:15 36.6 C 79 16 96/53 L 94 Laboratory Results Abnormal lab results 11/10/21 11/10/21 11/10/21 Range/Units 16:34 16:34 16:34 WBC 18.36 H (4.8-10.8) K/uL RBC 4.37 L (4.7-6.1) M/uL Hgb 12.6 L (14.0-18.0) g/dL Hct 38.2 L (42-52) % Neut # (Auto) 14.06 H (1.4-6.5) K/uL [place] # (Auto) 1.58 H (0.11-0.59) K/uL Immature Gran # (Auto) 0.05 H (0.00-0.02) K/uL ESR 71 H (0-20) mm/hr Sodium 132 L (136-145) mmol/L Chloride 97 L (98-107) mmol/L Anion Gap 12 H (3-11) Glucose 349 H* (70-99(Fasting)) mg/dl POC Glucose (70-99) mg/dl Total Bilirubin 1.3 H (0.2-1.0) mg/dl Alkaline Phosphatase 131 H (34-104) U/L C-Reactive Protein 7.92 H (0-0.5) mg/dl 11/10/21 11/10/21 Range/Units 17:27 18:05 WBC (4.8-10.8) K/uL RBC (4.7-6.1) M/uL Hgb (14.0-18.0) g/dL Hct (42-52) % Neut # (Auto) (1.4-6.5) K/uL [place] # (Auto) (0.11-0.59) K/uL Immature Gran # (Auto) (0.00-0.02) K/uL ESR (0-20) mm/hr Sodium (136-145) mmol/L Chloride (98-107) mmol/L Anion Gap (3-11) Glucose (70-99(Fasting)) mg/dl POC Glucose 365 H* 375 H* (70-99) mg/dl Total Bilirubin (0.2-1.0) mg/dl Alkaline Phosphatase (34-104) U/L C-Reactive Protein (0-0.5) mg/dl Diagnostic Findings Foot X-Ray 11/10/21 16:46 LEFT FOOT 3 VIEWS CLINICAL HISTORY: Cellulitis. Diabetic ulcers. FINDINGS: 3 views of the left foot are compared to study dated 11/03/2021. The skeletal structures are osteopenic. There has been amputation of the fifth toe. No acute fracture is identified. No bony erosion or periostitis is seen. Moderate osteoarthritic change is noted at the first metatarsophalangeal joint. Moderate to advanced degenerative change is also seen throughout the ankle, midfoot, and hindfoot. Degenerative spurring is noted along the dorsal aspect of the tarsal bones. Soft tissue edema is seen throughout the forefoot. Advanced atherosclerotic calcification is noted in the regional arteries. IMPRESSION: 1. Soft tissue swelling with no acute bony abnormality identified. 2. Osteopenia with postoperative and advanced degenerative change as above. Code Status & VTE Plan Code Status Full Code. VTE Prophylaxis Plan VTE Prophylaxis will be ordered: Yes Supervising Physician Co-Signing Physician Notes I personally saw and examined the patient. I verified all perez points and agree with Susie Wang PA-C with the following exceptions and/or additions: 66 year old male with T1DM and left femoral distal bypass and prior below knee amputation on right lower extremity due to osteomyelitis who presents to the ER with left distal extremity ischemic ulcers and surrounding cellulitis. Sent over from wound care clinic today. No fever or chills. O/E multiple unstageable ulcers on LLE of heel, left 1st toe, 3rd toe and plantar surface below MTP. Surrounding cellulitis to ankle with warmth and swelling. Cap refil < 2s in 1st toe but ulcers appear ischemic given sharp borders and crater- like appearance. HS 1+2, no murmurs, RRR, Chest CTAB, Abdo SNT. A/P Cellulitis - likely underlying osteo myelitis, will defer further imaging to orthopedics. Daptomycin + Zosyn as above. Follow up wound and blood cultures. Consult orthopedics. Multiple ischemic appearing ulcers on LLE - US arterial doppler with occlusion to bypass likely the cause. Started on IV heparin standard with bolus and consult vascular surgery. Fortunately he does have some flow distally. T1DM - stop insulin pump due to likely need for surgery and uncontrolled HbA1C 8.5. Consult pharmacy for glycemic control. PG Care Time/CCT Total # of Minutes Spent Total Time Spent with Patient: Total time spent is greater than 50% in coordination of care (as documented) at patient's floor/unit and/or counseling patient: Coding Level of Care Code 45561 Initial Inpt Care Lvl 3 Diagnoses Diabetic ulcer of left foot E11.621; L97.529 CAD (coronary artery disease) I25.10 Associated angina: without angina Coronary Disease-Associated Artery/Lesion type: [place] artery [place] vs. transplanted heart: [place] heart PVD (peripheral vascular disease) I73.9 Hypertension I10 Hypertension type: unspecified Dyslipidemia E78.5 Hypothyroidism E03.9 Hypothyroidism type: unspecified Diabetic nephropathy associated with type 1 diabetes mellitus E10.21 Hyponatremia E87.1 Folate deficiency E53.8 Below-knee amputation of right lower extremity S88.111A Diabetes mellitus type 1 E10.9 (1) CAD (coronary artery disease) Associated angina: without angina Coronary Disease-Associated Artery/Lesion type: [place] artery [place] vs. transplanted heart: [place] heart Qualified Code(s): I25.10 - Atherosclerotic heart disease of [place] coronary artery without angina pectoris (2) Hypothyroidism Hypothyroidism type: unspecified Qualified Code(s): E03.9 - Hypothyroidism, unspecified (3) Hypertension Hypertension type: unspecified Qualified Code(s): I10 - Essential (primary) hypertension
--- NOTE | 2021-11-10 17:50 | XRay Report ---
LEFT FOOT 3 VIEWS CLINICAL HISTORY: Cellulitis. Diabetic ulcers. FINDINGS: 3 views of the left foot are compared to study dated 11/03/2021. The skeletal structures are osteopenic. There has been amputation of the fifth toe. No acute fracture is identified. No bony ero tamra or periostitis is seen. Moderate osteoarthritic change is noted at the first metatarsophalangeal joint. Moderate to advanced degenerative change is also seen throughout the ankle, midfoot, and hind foot. Degenerative spurring is noted along the dorsal aspect of the tarsal bones. Soft tissue edema i s seen throughout the forefoot. Advanced atherosclerotic calcification is noted in the regional arter ies. IMPRESSION: 1. Soft tissue swelling with no acute bony abnormality identified. 2. Osteopenia with postoperative and advanced degenerative change as above. Dictated: 11/10/2021 5:24 PM Transcribed: 11/10/2021 5:34 PM Prema [id number] [facility] Electronically signed by: Tae Pizarro M.D. 11/10/2021 5:49 PM
[2021-11-10] MEDS ORDERED: PHARMACY GLYCEMIC MGMT CONSULT PRN (17:51)
[2021-11-10 19:03] LABS: Appearance Urine Clear (Clear); Bilirubin Urine Negative (Negative); Blood Urine Negative (Negative); Color Urine Yellow; Glucose Urine UA 2+ (Negative); Ketones Urine 2+ (Negative); Leukocyte Esterase Urine Negative (Negative); Nitrite Urine Negative (Negative); Protein Urine Negative (Negative); Specific Gravity Urine 1.018 (1.000-1.030); Urobilinogen Urine Negative (Negative); pH Urine 5.5 (4.5-7.5)
[2021-11-10] MEDS ORDERED: INSULIN ASPART PER UNIT SQ SCH (21:12)
[2021-11-10] MEDS ORDERED: ONDANSETRON INJ 2 MG/ML 2 ML VIAL IV PRN (21:12)
[2021-11-10] MEDS ORDERED: GLUCAGON FOR INJ 1 MG VIAL SQ PRN (21:12)
[2021-11-10] MEDS ORDERED: DEXTROSE 50% 50 ML SYRINGE IV PRN (21:12)
[2021-11-10] MEDS ORDERED: GLUCOSE 40% GEL 15 GM TUBE PO PRN (21:12)
[2021-11-10] MEDS ORDERED: POLYETHYLENE (MIRALAX) 17 GM PACK PO PRN (21:12)
[2021-11-10] MEDS ORDERED: DC ALL PREVIOUSLY ORDERED DIABETES MEDS ONE (21:12)
[2021-11-10] MEDS ORDERED: GLUCOSE 10 TABS/TUBE PO PRN (21:12)
--- NOTE | 2021-11-10 21:16 | Ultrasound Report ---
ULTRASOUND LEFT LOWER EXTREMITY ARTERIAL CLINICAL HISTORY: Left toe infection. COMPARISON STUDY: Left lower extremity arterial ultrasound dated 10/21/2020. TECHNIQUE: Real-time grayscale and color Doppler sonography of the arteries of the left lower extremi ty is performed from the inguinal crease to the foot. FINDINGS: Advanced atherosclerotic plaque and irregularity are seen throughout the arteries of the le ft lower extremity. The common femoral artery is patent with triphasic arterial waveforms and velocit ies measure up to 182 cm/s. The profunda femoris artery is patent with velocities measuring up to 54 cm/s. The [place] superficial femoral and popliteal arteries are completely thrombosed. A bypass graft is seen extending from the proximal superficial femoral artery to the posterior tibial artery. The p roximal portions appear patent with velocities measuring up to 60 cm/s. The graft appears occluded be low the knee. There is flow within the anterior tibial and posterior tibial arteries in the calf. The se demonstrate blunted arterial upstrokes. Velocities within the posterior tibial artery measure up t o 59 cm/s and velocities within the anterior tibial artery measure up to 34 cm/s. The peroneal artery appears occluded. The dorsalis pedis artery is patent with monophasic flow and velocities measure up to 36 cm/s. IMPRESSION: 1. There is complete occlusion of the [place] superficial femoral and popliteal arteries. 2. A bypass graft is seen extending from the superficial femoral artery to the posterior tibial arter y with near complete to complete occlusion below the knee. 3. No flow is shown within the peroneal artery. 4. The anterior and posterior tibial arteries appear patent. Dictated: 11/10/2021 8:32 PM Transcribed: 11/10/2021 8:54 PM Carole [id number] [email or web address] Electronically signed by: Tae Pizarro M.D. 11/10/2021 9:14 PM
[2021-11-10] MEDS ORDERED: Heparin IV Adult Wt-Based Standard WITH Bolus Protocol IV SCH (21:30)
[2021-11-10 21:44] LABS: INR 1.1 (0.9-1.1); Partial Thromboplastin Time 28.5 Seconds (21.0-31.0); Prothrombin Time 11.4 Seconds (9.0-12.0)
[2021-11-10] MEDS ORDERED: [UNRECOGNIZED DRUG - REMARK] ONE (22:00)
[2021-11-10] MEDS ORDERED: INSULIN GLARGINE SOLOSTAR 100 UNITS/ML 3 ML PEN SC SCH (22:00)
[2021-11-10] MEDS ORDERED: INSULIN GLARGINE 100 UNIT/ML VIAL SC SCH (22:00)
[2021-11-10] MEDS ORDERED: HEPARIN IV BOLUS 6,000 UNITS in SYRINGE 0 ML IV ONE (22:00)
[2021-11-10] MEDS: METOPROLOL TARTRATE 25 MG TAB PO SCH (22:59)
[2021-11-10] MEDS: FERROUS SULFATE 325 MG TAB PO SCH (23:00)
[2021-11-10] MEDS: ATORVASTATIN 40 MG TAB PO SCH (23:01)
[2021-11-10] MEDS: POTASSIUM CHLORIDE CRTAB 20 MEQ TABCR PO SCH (23:01)
[2021-11-10] MEDS: HEPARIN SODIUM/DEXTROSE 25,000 UNITS/500 ML BAG IV SCH (23:08)
[2021-11-10] MEDS: MAGNESIUM HYDROXIDE SUSP 30 ML UDC PO PRN (23:59)
[2021-11-10] MEDS: PIPERACILLIN/TAZOBACTAM 3.375 GM in DEXTROSE 5% 100 ML IV SCH (23:59)
[2021-11-11] MEDS ORDERED: INSULIN ASPART PER UNIT SC SCH (02:00)
[2021-11-11 05:41] LABS: Basophils # (auto) 0.04 K/uL (0-0.2); Basophils % (auto) 0.3 %; Eosinophils # (auto) 0.26 K/uL (0-0.5); Eosinophils % (auto) 2.2 %; Hematocrit (blood only) 34.2 % (42-52); Hemoglobin 11.4 g/dL (14.0-18.0); Immature Granulocytes # (auto) 0.02 K/uL (0.00-0.02); Immature Granulocytes % (auto) 0.2 %; Lymphocytes # (auto) 2.16 K/uL (1.2-3.4); Lymphocytes % (auto) 18.7 %; Mean Corpuscular Hemoglobin 28.8 pg (25-34); Mean Corpuscular Hgb Conc 33.3 g/dL (32-36); Mean Corpuscular Volume 86.4 fL (80-100); Mean Platelet Volume 8.9 fL (7.4-10.4); Monocytes # (auto) 1.35 K/uL (0.11-0.59); Monocytes % (auto) 11.7 %; Neutrophils # (auto) 7.73 K/uL (1.4-6.5); Neutrophils % (auto) 66.9 %; Platelet Count 275 K/uL (130-400); RDW Coefficient of Variation 14.2 % (11.5-14.5); RDW Standard Deviation 45.1 fL (36.4-46.3); Red Blood Count 3.96 M/uL (4.7-6.1); White Blood Count 11.56 K/uL (4.8-10.8)
[2021-11-11] MEDS: INSULIN ASPART PER UNIT SC SCH ×4 (06:01→17:41)
[2021-11-11 06:19] LABS: BUN Creatinine Ratio 14.5 (10-20); Calcium 9.1 mg/dl (8.5-10.1); Est GFR (African American) 107.8 ml/min; Potassium 3.9 mmol/L (3.5-5.1)
[2021-11-11] MEDS: LEVOTHYROXINE SODIUM 175 MCG TABLET PO SCH (06:23)
[2021-11-11 06:33] LABS: Partial Thromboplastin Ratio 2.3
[2021-11-11 06:34] LABS: Partial Thromboplastin Time 62.5 Seconds (21.0-31.0)
[2021-11-11 07:44] LABS: Estimated Average Glucose 183 mg/dl
[2021-11-11] MEDS: ASPIRIN 81 MG ECTAB PO SCH (08:50)
[2021-11-11] MEDS: CALCITRIOL 0.25 MCG CAPSULE PO SCH (08:53)
[2021-11-11] MEDS: CLOPIDOGREL BISULFATE 75 MG TAB PO SCH (08:54)
[2021-11-11] MEDS: FERROUS SULFATE 325 MG TAB PO SCH ×2 (08:54→20:02)
[2021-11-11] MEDS: PANTOprazole 40 MG TAB PO SCH (08:55)
[2021-11-11] MEDS: FOLIC ACID 1 MG TAB PO SCH (08:55)
[2021-11-11] MEDS: POTASSIUM CHLORIDE CRTAB 20 MEQ TABCR PO SCH ×2 (08:56→20:04)
[2021-11-11] MEDS: PIPERACILLIN/TAZOBACTAM 3.375 GM in DEXTROSE 5% 100 ML IV SCH ×2 (09:23→16:20)
[2021-11-11] MEDS: METOPROLOL TARTRATE 25 MG TAB PO SCH ×2 (09:26→20:03)
[2021-11-11] MEDS ORDERED: DEXTROSE 50% 50 ML SYRINGE IV ONE (10:35)
--- NOTE | 2021-11-11 13:33 | Consultation ---
Date of Consultation November 11, 2021 Assessment & Plan (1) PAD (peripheral artery disease): Patient with a graft which may have outflow problems. Would recommend arteriography of the left lower extremity. Will place on the schedule for Monday morning. Would treat with local care and antibiotics til then. Thank you very much for letting us participate in the care of this patient. History of Present Illness Reason for Consultation: Gangrene toes left foot Attending Physician: Xander Gaxiola MD History of Present Illness This is 66yo male who had a right BKA for gangrene of his right foot. He is diabetic with severe PAD. He has had a left fem distal bypass in the past. He has developed progressive gangrene of the toes of the left foot. He denies rest pain and does not walk far enough or fast enough to claudicate. His usn done on this admission shows the proximal graft to below the knee to be patent and beyond this possibly occluded. Allergies Allergy/AdvReac Type Severity Reaction Status Date / Time No Known Allergies Allergy Unknown Verified 11/10/21 13:14 Home Medications Medication Instructions Recorded Confirmed Type atorvastatin 80 mg tablet (Lipitor) 80 mg PO HS #90 tab 11/25/20 11/10/21 Rx clopidogrel 75 mg tablet (Plavix) 75 mg PO QAM #30 tab 01/28/21 11/10/21 Rx metoprolol tartrate 25 mg tablet 12.5 mg PO BID #90 tab 02/09/21 11/10/21 Rx calcitriol 0.25 mcg capsule 0.25 mcg PO QAM #30 cap 04/27/21 11/10/21 Rx (Rocaltrol) aspirin 81 mg tablet,delayed 81 mg PO QAM 05/04/21 11/10/21 History release (Aspirin Low Dose) pantoprazole 40 mg tablet,delayed 40 mg PO QAM #30 tab 06/15/21 11/10/21 Rx release (Protonix) levothyroxine 175 mcg tablet 175 mcg PO QAM 06/30/21 11/10/21 History (Synthroid) insulin aspart U-100 100 unit/mL See Rx Instructions .ROUTE 07/14/21 11/10/21 Rx (3 mL) subcutaneous pen (Novolog .COMPLEX #3 ml Flexpen U-100 Insulin aspart) ferrous sulfate 325 mg (65 mg 325 mg PO BID #60 tab 08/03/21 11/10/21 Rx iron) tablet,delayed release folic acid 1 mg tablet 1 mg PO QAM #30 tab 08/03/21 11/10/21 Rx lactobacillus combination no.9 4 4,000 mmu cells PO DAILY 08/04/21 11/10/21 History billion cell capsule (Adult 50 Plus Probiotic) Bed Side Commode #1 ea 08/09/21 11/10/21 Rx Commode rails #1 ea 08/10/21 11/10/21 Rx potassium chloride 20 mEq 20 meq PO BID #60 tab 09/20/21 11/10/21 Rx tablet,extended release insulin aspart U-100 100 unit/mL 75 unit SQ CONT 90 Days #70 ml 10/14/21 11/10/21 Rx subcutaneous solution (Novolog U-100 Insulin aspart) Patient History Medical History Aortic stenosis s/p porcine valve replacement (2015) with CABG x 1 CAD (coronary artery disease) s/p CABG x 1 (2015) CKD (chronic kidney disease) stage 2, GFR 60-89 ml/min Diabetes mellitus type 1 + Insulin pump Diabetic nephropathy associated with type 1 diabetes mellitus Dyslipidemia GERD (gastroesophageal reflux disease) History of Clostridium difficile infection History of osteomyelitis Hypertension Hypothyroidism Insulin pump in place Osteoarthritis Osteoporosis Proliferative diabetic retinopathy associated with type 1 diabetes mellitus PVD (peripheral vascular disease) s/p B/L iliac artery stents (2014), R common/external iliac (2017), R common femoral endarterectomy (11/2018) with bovine patch. Left femoral to PT composite bypass graft (06/2020) VRE infection (vancomycin resistant enterococcus), with multi-drug resistance hx Surgical History Below-knee amputation of right lower extremity RETURNED HOME FROM [facility] 07/30/21 H/O cataract extraction R/L H/O endarterectomy R common femoral (11/2018) H/O vascular surgery Right Femoral to Posterior tibial Prosthetic Bypass Graft(Right) History of ankle surgery LEFT ANKLE +HARDWARE REMOVED [place] [place] History of arterial bypass of lower extremity Left femoral to PT composite bypass graft (06/2020) History of cardiac cath x2, most recent 2016 > no stents (subsequent CABG with AVR in 2016) History of carpal tunnel release R/L History of colonoscopy History of coronary artery bypass graft CABG x1 + AVR (2015) History of esophagogastroduodenoscopy (EGD) History of myringotomy History of open reduction and internal fixation (ORIF) procedure LLE () History of skin graft Split Thickness Skin Graft of Left Lateral Ankle (11/18/20): LMA#5, atraumatic x1 at [facility] History of tonsillectomy History of tooth extraction History of umbilical hernia repair Hx of surgical procedure Left Leg Wound Debridement and Irrigation S/P femoropopliteal bypass surgery Right fem-pop bypass graft (01/19/21): Grade 2 view, MAC 3.0, ETT 8.0 at [facility] S/P insertion of iliac artery stent B/L iliac stent placement (2014) 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 Family History Brother Family history of diabetes mellitus Sister Family history of diabetes mellitus Mother Family history of diabetes mellitus Grandmother (Maternal) Family history of diabetes mellitus Uncle Family hx of colon cancer Colorectal cancer Father Family history of esophageal cancer Sister Family history of diabetes mellitus Other No family history of adverse response to anesthesia Denies family history of Ovarian cancer Prostate cancer Myocardial infarction Breast cancer Social History Smoking Status: Former smoker Tobacco Type: Cigarettes and Smokeless Tobacco (Dip or Chew) Cigarettes Per Day: Quit 15 years ago; Second Hand Exposure: No; Hx Alcohol Use: No Hx Substance Use: No Preferred Language: Arabic Communication Ability: Effective Visual Impairment: Limited Hearing Ability: Hard of Hearing Primary Care Sales Representative Required: No Beliefs That Will Affect Care: None marital status: Current Living Situation: Other Current Living Situation Comment: lives with roomate in apartment with 3 steps current occupational status: disabled How many Children do You have: 2 How many Children do You have Comment: family assists with care, also is part of the waiver program so the pt's roommate is able to assist with care through this program Other Information That Helps Us Care for You: No Feels Safe at Home: Yes Safety Concerns: Feels Safe At This Time Childhood Exposure to Second-Hand Smoke: Yes Diet Comment: Carb Counts. (4618-1921, roughly), protein drinks caffeine: Yes (coffee, rarely ) during the past year weight has: remained stable Dental Care, Regularly: No Seatbelt Use: always Sunscreen Use: No Gender Identity: Male Assistive Devices: Denture - Upper, Glasses and Prosthesis Review of Systems Review of Systems: All systems reviewed & are unremarkable except as noted in HPI & below Physical Exam Constitutional: WD/WN, vitals as above Neck: trachea midline Respiratory: normal respiratory effort; no respiratory distress Auscultation: lungs clear to auscultation bilaterally Cardiovascular: Rate/Rhythm: regular rate and regular rhythm Vessels: femoral pulses present; + posterior tibial pulses abnormal and + dorsalis pedis pulses abnormal There is a palpable pulse in the graft to below the knee Gastrointestinal (Abdomen): Inspection/Auscultation: abdomen normal to inspection; abdomen not distended Percussion/Palpation: abdomen soft; abdomen nontender Musculoskeletal: Gangrene left great toe as well as the 3rd toe and plantar surface of the foot. Eschar also present on the heel. Neurologic: CN's II-XI intact bilaterally and moves all extremities Psychiatric: Orientation: alert and oriented x 3 Results & Data ([facility]) Vital Signs (Past 12 Hours) Vital Signs Temp Pulse Resp BP BP Pulse Ox 11/11/21 11:23 37.1 C 70 20 109/66 94 11/11/21 07:03 37.2 C 80 18 110/59 L 96 11/11/21 03:40 37.5 C 79 18 146/73 H 95
[2021-11-11] MEDS: MAGNESIUM HYDROXIDE SUSP 30 ML UDC PO PRN ×2 (13:42→22:07)
--- NOTE | 2021-11-11 14:10 | Orthopedic Consultation ---
Date of Consultation November 11, 2021 Assessment & Plan (1) Ischemic ulcer diabetic foot: Patient was educated regarding today's findings. Conservative care measures were discussed. He is currently taking his Plavix. He is also being assessed by the vascular service for his occlusion. This is likely contributing to his ischemic ulcerations. I will discuss his case with Dr. Soto this afternoon. Possibility of further orthopedic surgical intervention on the left leg may be necessary. This will obviously be based on his vascular studies and any interventions recommended by Dr. Eason. He is currently receiving daptomycin and Zosyn IV. He is also NPO. History of Present Illness Reason for Consultation: Left foot discoloration and pain Attending Physician: Xander Gaxiola MD History of Present Illness This 66-year-old male was seen today in his room, for evaluation of his left foot. Patient came in through the ED last evening for blackened areas on his left foot and erythema extending to his ankle. Patient is a known diabetic with a history of peripheral artery disease, ischemic ulcers, foot drop, CAD, aortic stenosis, history of aortic valve replacement, history of osteomyelitis, diabetic retinopathy, hypothyroidism, hypertension, dyslipidemia, peripheral neuropathy, osteoporosis, nephrolithiasis, COPD, anemia, chronic kidney disease, dry gangrene and history of bacteremia. He was last seen in the orthopedic office 8 days ago. At that time he was referred to the wound care center for management of his left great toe. Patient states he was doing well until a few days ago. He noticed some cracks in his heel, and increasing pain. He also noted that the previous blood blister on his great toe ruptured, and the tissue underneath was black. He had a similar blood blister developed over the fourth toe, which also ruptured and created discoloration in his third webspace and fourth toe. He denies any fevers or chills. No nausea or vomiting. He denies any pain in the forefoot. He notes that there is limited motion of his toes as baseline. He has a history of recent right leg amputation performed by Dr. Soto, which he states is doing well. He is using his prosthesis and does ambulate some, including going up and down steps. Allergies Allergy/AdvReac Type Severity Reaction Status Date / Time No Known Allergies Allergy Unknown Verified 11/10/21 13:14 Home Medications Medication Instructions Recorded Confirmed Type atorvastatin 80 mg tablet (Lipitor) 80 mg PO HS #90 tab 11/25/20 11/10/21 Rx clopidogrel 75 mg tablet (Plavix) 75 mg PO QAM #30 tab 01/28/21 11/10/21 Rx metoprolol tartrate 25 mg tablet 12.5 mg PO BID #90 tab 02/09/21 11/10/21 Rx calcitriol 0.25 mcg capsule 0.25 mcg PO QAM #30 cap 04/27/21 11/10/21 Rx (Rocaltrol) aspirin 81 mg tablet,delayed 81 mg PO QAM 05/04/21 11/10/21 History release (Aspirin Low Dose) pantoprazole 40 mg tablet,delayed 40 mg PO QAM #30 tab 06/15/21 11/10/21 Rx release (Protonix) levothyroxine 175 mcg tablet 175 mcg PO QAM 06/30/21 11/10/21 History (Synthroid) insulin aspart U-100 100 unit/mL See Rx Instructions .ROUTE 07/14/21 11/10/21 Rx (3 mL) subcutaneous pen (Novolog .COMPLEX #3 ml Flexpen U-100 Insulin aspart) ferrous sulfate 325 mg (65 mg 325 mg PO BID #60 tab 08/03/21 11/10/21 Rx iron) tablet,delayed release folic acid 1 mg tablet 1 mg PO QAM #30 tab 08/03/21 11/10/21 Rx lactobacillus combination no.9 4 4,000 mmu cells PO DAILY 08/04/21 11/10/21 History billion cell capsule (Adult 50 Plus Probiotic) Bed Side Commode #1 ea 08/09/21 11/10/21 Rx Commode rails #1 ea 08/10/21 11/10/21 Rx potassium chloride 20 mEq 20 meq PO BID #60 tab 09/20/21 11/10/21 Rx tablet,extended release insulin aspart U-100 100 unit/mL 75 unit SQ CONT 90 Days #70 ml 10/14/21 11/10/21 Rx subcutaneous solution (Novolog U-100 Insulin aspart) Patient History Medical History Aortic stenosis s/p porcine valve replacement (2015) with CABG x 1 CAD (coronary artery disease) s/p CABG x 1 (2015) CKD (chronic kidney disease) stage 2, GFR 60-89 ml/min Diabetes mellitus type 1 + Insulin pump Diabetic nephropathy associated with type 1 diabetes mellitus Dyslipidemia GERD (gastroesophageal reflux disease) History of Clostridium difficile infection History of osteomyelitis Hypertension Hypothyroidism Insulin pump in place Osteoarthritis Osteoporosis Proliferative diabetic retinopathy associated with type 1 diabetes mellitus PVD (peripheral vascular disease) s/p B/L iliac artery stents (2014), R common/external iliac (2017), R common femoral endarterectomy (11/2018) with bovine patch. Left femoral to PT composite bypass graft (06/2020) VRE infection (vancomycin resistant enterococcus), with multi-drug resistance hx Surgical History Below-knee amputation of right lower extremity RETURNED HOME FROM [facility] 07/30/21 H/O cataract extraction R/L H/O endarterectomy R common femoral (11/2018) H/O vascular surgery Right Femoral to Posterior tibial Prosthetic Bypass Graft(Right) History of ankle surgery LEFT ANKLE +HARDWARE REMOVED History of aortic valve replacement 2016 [place] [place]) History of arterial bypass of lower extremity Left femoral to PT composite bypass graft (06/2020) History of cardiac cath x2, most recent 2016 > no stents (subsequent CABG with AVR in 2016) History of carpal tunnel release R/L History of colonoscopy History of coronary artery bypass graft CABG x1 + AVR (2015) History of esophagogastroduodenoscopy (EGD) History of myringotomy History of open reduction and internal fixation (ORIF) procedure LLE () History of skin graft Split Thickness Skin Graft of Left Lateral Ankle (11/18/20): LMA#5, atraumatic x1 at [facility] History of tonsillectomy History of tooth extraction History of umbilical hernia repair Hx of surgical procedure Left Leg Wound Debridement and Irrigation S/P femoropopliteal bypass surgery Right fem-pop bypass graft (01/19/21): Grade 2 view, MAC 3.0, ETT 8.0 at [facility] S/P insertion of iliac artery stent B/L iliac stent placement (2014) 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 Family History Brother Family history of diabetes mellitus Sister Family history of diabetes mellitus Mother Family history of diabetes mellitus Grandmother (Maternal) Family history of diabetes mellitus Uncle Family hx of colon cancer Colorectal cancer Father Family history of esophageal cancer Sister Family history of diabetes mellitus Other No family history of adverse response to anesthesia Denies family history of Ovarian cancer Prostate cancer Myocardial infarction Breast cancer Social History Smoking Status: Former smoker Tobacco Type: Cigarettes and Smokeless Tobacco (Dip or Chew) Cigarettes Per Day: Quit 15 years ago; Second Hand Exposure: No; Hx Alcohol Use: No Hx Substance Use: No Preferred Language: Slovenian Communication Ability: Effective Visual Impairment: Limited Hearing Ability: Hard of Hearing Hogshead Mat Inspector Required: No Beliefs That Will Affect Care: None marital status: Current Living Situation: Other Current Living Situation Comment: lives with roomate in apartment with 3 steps current occupational status: disabled How many Children do You have: 2 How many Children do You have Comment: family assists with care, also is part of the waiver program so the pt's roommate is able to assist with care through this program Feels Safe at Home: Yes Childhood Exposure to Second-Hand Smoke: Yes Diet Comment: Carb Counts. (1647-1353, roughly), protein drinks caffeine: Yes (coffee, rarely ) during the past year weight has: remained stable Dental Care, Regularly: No Seatbelt Use: always Sunscreen Use: No Gender Identity: Male Assistive Devices: Prosthesis Review of Systems Review of Systems: All systems reviewed & are unremarkable except as noted in Subjective Physical Exam Physical Exam: General: Well-developed, well-nourished, middle-aged white male, in no acute distress. Laying in the bed. Talking on his phone. Alert and oriented. Conversive. Skin: Warm and dry with fair turgor. He has blackened area of eschar present on his medial left great toe, medial third toe, plantar surface at the fourth metatarsal head, and multiple areas over his heel. His skin is dry and there is no active weeping. There is some ecchymosis in the third webspace extending to the fourth toe. There is some mild erythema present in the dorsal aspect of the foot extending to the ankle. No significant warmth beyond normal skin temperature. Capillary refill is within 3 seconds for the toes. Musculoskeletal: Patient has no significant motor function of the toes. He states this is his baseline secondary to metatarsal inserts that he is used for many years. He does have intact motor function of the ankle. He has a right leg amputation with prosthesis in place. Neurologic: Patient has no discomfort with palpation of any of his toes or the forefoot. He is tender with palpation over his heel. Peripheral pulses are difficult to ascertain. Nothing is palpable at the posterior tibialis. Pulse is palpable at dorsalis pedis. Results & Data ([facility]) Vital Signs (Past 12 Hours) Vital Signs Temp Pulse Resp BP BP Pulse Ox 11/11/21 11:23 37.1 C 70 20 109/66 94 11/11/21 07:03 37.2 C 80 18 110/59 L 96 11/11/21 03:40 37.5 C 79 18 146/73 H 95 Laboratory Results CBC obtained this morning shows white count of 11.56 and H&H of 11.4 and 34.2. Normal platelets at 275. PRP is. Hemoglobin A1c is 8.0. Diagnostic Findings Radiographs of the left foot obtained last evening shows some soft tissue swelling with no acute bony abnormality noted. No acute fractures. No bony erosions or periostitis is noted. Arthritic changes are noted in the ankle, midfoot, hindfoot, and first MTP joint. Ultrasound obtained of the left lower leg last evening shows complete occlusion of the superficial femoral and popliteal arteries. Previous distal femoral bypass graft is noted with near complete to complete occlusion below the knee. No flow is shown within the peroneal artery. Anterior and posterior tibial arteries appear patent.
--- NOTE | 2021-11-11 14:46 | Pharmacy Report ---
Pharmacy Glycemic Short Note 2 - Date of Service November 11, 2021 - Glycemic Short BSG Results (Last 24 hours): 11/10/21 11/10/21 11/10/21 16:34 17:27 18:05 Glucose 349 H* POC Glucose 365 H* 375 H* 11/10/21 11/10/21 11/11/21 20:36 20:38 00:04 Glucose POC Glucose 346 H* 341 H* 229 H 11/11/21 11/11/21 11/11/21 05:24 06:00 14:02 Glucose 90 POC Glucose 78 71 OUTPATIENT ANTIDIABETIC REGIMEN: * Novolog insulin pump * HbA1c: 8.0% (11/11/21) ASSESSMENT: * Mr Chowdhury is a 66yo type 1 diabetic male, admitted with worsening DM foot ulcer/infection. * On admission last night, insulin pump was to be held and pt was initiated on SQ basal/bolus insulin. * BSGs have been on the low side today. When CDE visited pt today, he was found to still have his insulin pump running. SQ insulin orders stopped. * Will attempt to allow pt to manage himself with his insulin pump as long as BSGs are appropriate. * If BSGs become unstable, will convert back to SQ insulin. PLAN FOR INPATIENT GLYCEMIC CONTROL: * Continue insulin pump. Patient to manage. * Basal insulin * Lantus 38 units x1 dose last evening * Bolus insulin --- per pump * NovoLog per scale ACHS or Q6hrs while NPO * Goal Range: Low 100 mg/dL - High 150 mg/dL * Correction Factor: ____ mg/dL/unit * Nutritional / Prandial insulin per carb ratio of 1 unit per ____ grams CHO consumed PLAN FOR DISCHARGE: * tbd
--- NOTE | 2021-11-11 15:59 | Progress Notes ---
DATE OF SERVICE: 11/11/2021. The patient is seen and evaluated. This was done in conjunction with Riky Estrada. For further det ails, refer to his dictation. The patient is known to me from outpatient treatment. He has develope d some dry gangrene of his left foot. This has progressed since our meeting last week. He does have an elevated white count of 12,000, hemoglobin 11, hematocrit 34. Radiographs demonstrate no evidence of osteomyelitis. However, given the proximity of the eschar on the big toe to the bony prominence of the distal phalanx, there is likely to be exposed bone underneath the eschar. He has progressive eschar of the heel and over the plantar aspect of the fourth metatarsal as well as the first, second and third toes. Minimal erythema. Pedal pulses not palpable. Ankle movement is limited. There are plans for arteriogram on Monday with vascular intervention as necessary. I think that this is important. There is no need for any urgent surgical treatment. I think that amputation is likel y to be necessary. This would either be a transmetatarsal amputation or a below-knee amputation. Gi crispin the absence of the right lower extremity and use a prosthesis, I think preserving a stable functi onal weightbearing foot would be important. There is a chance that transmet may not heal in which ca se he would need a below-knee amputation. Having both knees amputated below the knee may be a signif icant impediment to ambulatory mobility. The foot needs to be elevated off the bed with pillows and waffle boot. Continue antibiotics as necessary. Cori Graves or one of my colleagues can follow with the patient next week as I will be out of town. If there are no urgencies then I will reestabl jose care and decide on a plan once I return. Job ID: [id number]
--- NOTE | 2021-11-11 16:00 | XRay Report ---
XR tibia fibula LT 2V CLINICAL HISTORY: left foot dry gangrene; pre-surgical planning. COMPARISON STUDY: No previous studies for comparison. TECHNIQUE: AP and lateral left lower leg views FINDINGS: Bones: Old, healed fractures are present involving the distal tibia and fibula with posttraumatic def ormity present. The bones are osteopenic. There is no evidence for an acute fracture or dislocation. There is no lytic or blastic lesion. Joints: Degenerative changes are present at the knee joint and the ankle joint. The patient is also s tatus post previous internal fixation for patellar fracture. The bones are in anatomic alignment. Soft tissues: There is no focal soft tissue abnormality. Vascular clips are seen within the soft tiss ues. There is no radiopaque foreign body. IMPRESSION: 1. No acute osseous pathology. 2. Old, healed fractures of the distal tibia and fibula with posttraumatic deformity present. 3. Osteoarthritis. ACT 112: Negative or not required by law. Electronically signed by: Jerzy Sharp M.D. 11/11/2021 3:59 PM
[2021-11-11] MEDS: HEPARIN SODIUM/DEXTROSE 25,000 UNITS/500 ML BAG IV SCH (16:59)
--- NOTE | 2021-11-11 18:11 | Hospitalist Progress Note ---
Date of Service November 11, 2021 Assessment & Plan (1) Diabetic ulcer of left foot: Plan: - LLE erythema and edema that goes slightly above malleolus with several skin fissures, necrotic ulcerated wound on 1.) medial aspect of L great toe with eschar, 2.) medial aspect of third toe with some drainage and eschar, 3.) on upper lateral border of left sole with eschar, and 4.) on heel of left foot with necrotic tissue. - Pulses intact, extremity without pallor or decreased temperature, pt has diminished sensation at baseline, but has some sensation along medial and lateral aspect of foot. Minimal pain. - WBC is trending down; ESR/CRP elevated and can trend for response; procal 0.08 - XR - soft tissue swelling with no acute bony abnormality identified - U/S - complete occlusion of the [place] superficial femoral and popliteal arteries; bypass graft extending from superficial femoral artery to the posterior tibial artery with near complete to complete occlusion below the knee; no flow shown within the peroneal artery; anterior and posterior tibial arteries appear patent - Tib/Fib XR - no acute osseous pathology; old healed fractures of the distal tibia and fibula with post-traumatic deformity present; OA - Wound Cx - gram negative bacilli - await further identification - Continue Daptomycin and Zosyn - Heparin gtt for PAD findings - Ortho consulted - discussed with Dr. Soto - anticipate metatarsal amputation pending vascular intervention - Vascular consulted - planning on ateriogram on Monday (2) Diabetes mellitus type 1: Plan: -Uncontrolled, has insulin pump -Pharmacy consult placed for glycemic management. -Heart healthy + CC diet. (3) CAD (coronary artery disease): Plan: -S/P CABG x 1 (2015). No chest pain today. -Continue statin, DAPT w/ ASA and Plavix, and metoprolol. -- Will discuss with Dr. Eason in regards to ASA/Plavix pending operative measures (4) PVD (peripheral vascular disease): Plan: -B/L iliac artery stents (2014), R common/external iliac (2017), R common femoral endarterectomy (11/2018) with bovine patch. Left femoral to PT composite bypass graft (06/2020). (5) Hypertension: Plan: -Patient initially hypotensive in ED and responded to fluid bolus - BPs acceptable today -Continue Metoprolol 12.5 mg BID (6) Dyslipidemia: Plan: -Continue statin. (7) Hypothyroidism: Plan: -Continue levothyroxine. (8) Diabetic nephropathy associated with type 1 diabetes mellitus: Plan: -Documented hx of CKD stage 3, Cr and BUN appear wnl today. -Continue daily iron, calcitrol, and potassium supplement. -Renally dose all medications, avoid nephrotoxic agents. -Trend BMP daily. (9) Hyponatremia: Plan: -Na 136 (10) Folate deficiency: Plan: -Continue folic acid supplementation. (11) Below-knee amputation of right lower extremity: Plan: -June 2021. No acute issues. -Follows with Dr. Soto Plan: Await vascular intervention on Monday to drive ortho's intervention Attempted to call daughter Loulou ([phone] - number given by patient) as number in chart does not work; did leave voicemail. Admission and Anticipated Discharge Date Admission Date: November 10, 2021 Subjective No acute events overnight. Patient reports feeling well. Unfortunately L foot ulcerations have worsened since last outpatient evaluation. He reports overall feeling in his normal state of health. Planning on surgical interventions next week. He verbalizes no new complaints. Review of Systems Review of Systems: All systems reviewed & are unremarkable except as noted in Subjective Physical Exam Physical Exam: PHYSICAL EXAM General Appearance: WDWN in NAD who is A&O x 3 HEENT: Head is normocephalic/atraumatic; Hearing grossly intact; Mucous membranes moist Neck: Supple; Trachea midline; Neg JVD Heart: RRR with no M/G/R Lungs: CTA in all lung fuller bilaterally; Respirations unlabored; Neg accessory muscle use Abdomen: Soft, non-tender, non-distended; Positive BS x 4 quadrants Extremities: R BKA; blackened eschar/dry gangrene on medial L great toe, medial third toe, plantar surface of fourth metatarsal head, and multiple areas over the heel Neurological: Speech clear; Gross motor/sensory function intact; Neg focal neurologic deficits Psychiatric: Appropriate mood/affect Skin: Normal Color; Warm/Dry; other than mentioned above Results & Data Results & Data ([facility]) Vital Signs (Past 12 Hours) Vital Signs Temp Pulse Pulse Resp BP Pulse Ox 11/11/21 16:01 73 11/11/21 11:23 37.1 C 70 20 109/66 94 11/11/21 07:03 37.2 C 80 18 110/59 L 96 PG Care Time/CCT Total # of Minutes Spent Total Time Spent with Patient: Total time spent is greater than 50% in coordination of care (as documented) at patient's floor/unit and/or counseling patient: Coding Level of Care Code 32513 Subseq Hosp Care Lvl 3 Diagnoses Diabetic ulcer of left foot E11.621; L97.529 Diabetes mellitus type 1 E10.9 CAD (coronary artery disease) I25.10 Coronary Disease-Associated Artery/Lesion type: eek artery [place] vs. transplanted heart: eek heart Associated angina: without angina PVD (peripheral vascular disease) I73.9 Hypertension I10 Hypertension type: unspecified Dyslipidemia E78.5 Hypothyroidism E03.9 Hypothyroidism type: unspecified Diabetic nephropathy associated with type 1 diabetes mellitus E10.21 Hyponatremia E87.1 Folate deficiency E53.8 Below-knee amputation of right lower extremity S88.111A (1) CAD (coronary artery disease) Coronary Disease-Associated Artery/Lesion type: [place]ek artery [place] vs. transplanted heart: eek heart Associated angina: without angina Qualified Code(s): I25.10 - Atherosclerotic heart disease of [place] coronary artery without angina pectoris (2) Hypertension Hypertension type: unspecified Qualified Code(s): I10 - Essential (primary) hypertension (3) Hypothyroidism Hypothyroidism type: unspecified Qualified Code(s): E03.9 - Hypothyroidism, unspecified
[2021-11-11] MEDS: DAPTOmycin 425 MG in SYRINGE 0 ML IV SCH (19:55)
[2021-11-11] MEDS: ATORVASTATIN 40 MG TAB PO SCH (20:02)
[2021-11-11] MEDS ORDERED: INSULIN GLARGINE SOLOSTAR 100 UNITS/ML 3 ML PEN SC SCH (21:00)
[2021-11-12] MEDS: PIPERACILLIN/TAZOBACTAM 3.375 GM in DEXTROSE 5% 100 ML IV SCH ×4 (00:08→23:08)
[2021-11-12] MEDS: INSULIN ASPART PER UNIT SC SCH ×5 (00:18→23:07)
[2021-11-12] MEDS: LEVOTHYROXINE SODIUM 175 MCG TABLET PO SCH (06:15)
[2021-11-12] MEDS: ADVANCED PROBIOTIC 1250 MG CAPSULE PO SCH (08:04)
[2021-11-12] MEDS: FERROUS SULFATE 325 MG TAB PO SCH ×2 (08:04→22:10)
[2021-11-12] MEDS: ASPIRIN 81 MG ECTAB PO SCH (08:05)
[2021-11-12] MEDS: PANTOprazole 40 MG TAB PO SCH (08:06)
[2021-11-12] MEDS: CALCITRIOL 0.25 MCG CAPSULE PO SCH (08:06)
[2021-11-12] MEDS: FOLIC ACID 1 MG TAB PO SCH (08:07)
[2021-11-12] MEDS: CLOPIDOGREL BISULFATE 75 MG TAB PO SCH (08:07)
[2021-11-12] MEDS: POTASSIUM CHLORIDE CRTAB 20 MEQ TABCR PO SCH ×2 (08:08→22:12)
[2021-11-12 08:47] LABS: Basophils # (auto) 0.03 K/uL (0-0.2); Basophils % (auto) 0.2 %; Eosinophils # (auto) 0.07 K/uL (0-0.5); Eosinophils % (auto) 0.6 %; Hematocrit (blood only) 37.7 % (42-52); Hemoglobin 12.1 g/dL (14.0-18.0); Immature Granulocytes # (auto) 0.01 K/uL (0.00-0.02); Immature Granulocytes % (auto) 0.1 %; Lymphocytes # (auto) 2.01 K/uL (1.2-3.4); Lymphocytes % (auto) 16.1 %; Mean Corpuscular Hgb Conc 32.1 g/dL (32-36); Mean Corpuscular Volume 87.3 fL (80-100); Mean Platelet Volume 9.4 fL (7.4-10.4); Monocytes # (auto) 1.24 K/uL (0.11-0.59); Monocytes % (auto) 9.9 %; Neutrophils # (auto) 9.11 K/uL (1.4-6.5); Neutrophils % (auto) 73.1 %; Platelet Count 292 K/uL (130-400); RDW Coefficient of Variation 14.3 % (11.5-14.5); RDW Standard Deviation 45.4 fL (36.4-46.3); Red Blood Count 4.32 M/uL (4.7-6.1); White Blood Count 12.47 K/uL (4.8-10.8)
[2021-11-12] MEDS: METOPROLOL TARTRATE 25 MG TAB PO SCH ×2 (09:11→22:11)
[2021-11-12 09:12] LABS: Partial Thromboplastin Ratio 2.1
[2021-11-12 09:24] LABS: Partial Thromboplastin Time 58.8 Seconds (21.0-31.0)
--- NOTE | 2021-11-12 11:32 | Hospitalist Progress Note ---
Date of Service November 12, 2021 Assessment & Plan (1) Diabetic ulcer of left foot: Plan: - LLE erythema and edema that goes slightly above malleolus with several skin fissures, necrotic ulcerated wound on 1.) medial aspect of L great toe with eschar, 2.) medial aspect of third toe with some drainage and eschar, 3.) on upper lateral border of left sole with eschar, and 4.) on heel of left foot with necrotic tissue. - Pulses intact, extremity without pallor or decreased temperature, pt has diminished sensation at baseline, but has some sensation along medial and lateral aspect of foot. Minimal pain. - WBC improved but slightly bumped from 3/3; ESR/CRP elevated and can trend for response; procal 0.08 - XR - soft tissue swelling with no acute bony abnormality identified - U/S - complete occlusion of the [place] superficial femoral and popliteal arteries; bypass graft extending from superficial femoral artery to the posterior tibial artery with near complete to complete occlusion below the knee; no flow shown within the peroneal artery; anterior and posterior tibial arteries appear patent - Tib/Fib XR - no acute osseous pathology; old healed fractures of the distal tibia and fibula with post-traumatic deformity present; OA - Wound Cx - gram negative bacilli and staph species - await further identification - Continue Daptomycin and Zosyn - Heparin gtt for PAD findings - Ortho consulted - Dr. Soto - anticipate metatarsal amputation pending vascular intervention - Vascular consulted - planning on ateriography on Monday (2) Clostridium difficile colitis: Plan: - H/O -- previously on slow long taper of po Vanc last admission - Does endorse taking MOM a couple days ago as he occ. has constipation. Added probiotic - Having liquid stool today that is dark. Is on iron supplementation -- Recent colonoscopy without abnormality; no abdominal pain; no fever; H&H stable - Will check for c. diff as it is a possibility but could simply be from Abx; will recheck H&H to verify no worsening anemia in setting of dark stool (3) Diabetes mellitus type 1: Plan: -Uncontrolled, has insulin pump -Pharmacy consult placed for glycemic management. -Heart healthy + CC diet. (4) CAD (coronary artery disease): Plan: -S/P CABG x 1 (2015). No chest pain today. -Continue statin, DAPT w/ ASA and Plavix, and metoprolol. -- Will discuss with Dr. Eason in regards to ASA/Plavix pending operative measures (5) PVD (peripheral vascular disease): Plan: -B/L iliac artery stents (2014), R common/external iliac (2017), R common femoral endarterectomy (11/2018) with bovine patch. Left femoral to PT composite bypass graft (06/2020). (6) Hypertension: Plan: -Patient initially hypotensive in ED and responded to fluid bolus - BPs acceptable today -Continue Metoprolol 12.5 mg BID (7) Dyslipidemia: Plan: -Continue statin. (8) Hypothyroidism: Plan: -Continue levothyroxine. (9) Diabetic nephropathy associated with type 1 diabetes mellitus: Plan: -Documented hx of CKD stage 3, Cr and BUN appear wnl today. -Continue daily iron, calcitrol, and potassium supplement. -Renally dose all medications, avoid nephrotoxic agents. -Trend BMP daily. (10) Hyponatremia: Plan: -Na 136 (11) Folate deficiency: Plan: -Continue folic acid supplementation. (12) Below-knee amputation of right lower extremity: Plan: -June 2021. No acute issues. -Follows with Dr. Soto Plan: Await vascular intervention on Monday to drive ortho's intervention; if Hgb is stable can come off telemetry Attempted to call missy Jamil ([phone] - number given by patient) as number in chart does not work; did leave voicemail. Admission and Anticipated Discharge Date Admission Date: November 10, 2021 Subjective No acute events overnight. Reports feeling well this AM. Minimal pain in the foot (mostly just at the heel). He is tolerating a diet without issue. He did start having looser stool this AM that is dark but is on iron supplementation. He does report taking milk of mag a couple days ago because he does get constipation. He does have a history of C. diff. He is scheduled for arteriography on Monday. Review of Systems Review of Systems: All systems reviewed & are unremarkable except as noted in Subjective Physical Exam Physical Exam: PHYSICAL EXAM General Appearance: WDWN in NAD who is A&O x 3 HEENT: Head is normocephalic/atraumatic; Hearing grossly intact; Mucous membranes moist Neck: Supple; Trachea midline; Neg JVD Heart: RRR with no M/G/R Lungs: CTA in all lung fuller bilaterally; Respirations unlabored; Neg accessory muscle use Abdomen: Soft, non-tender, non-distended; Positive BS x 4 quadrants Extremities: R BKA; reviewed imaging placed by wound care as foot is currently wrapped Neurological: Speech clear; Gross motor/sensory function intact; Neg focal neurologic deficits Psychiatric: Appropriate mood/affect Skin: Normal Color; Warm/Dry; other than mentioned above Results & Data Results & Data ([facility]) Vital Signs (Past 12 Hours) Vital Signs Temp Pulse Pulse Resp BP Pulse Ox 11/12/21 07:20 36.9 C 80 18 130/78 97 11/12/21 07:17 70 11/12/21 03:29 73 11/12/21 02:43 36.8 C 75 19 154/82 H 96 11/11/21 23:36 36.6 C 82 20 138/67 97 PG Care Time/CCT Total # of Minutes Spent Total Time Spent with Patient: Total time spent is greater than 50% in coordination of care (as documented) at patient's floor/unit and/or counseling patient: Coding Level of Care Code 77795 Subseq Hosp Care Lvl 3 Diagnoses Diabetic ulcer of left foot E11.621; L97.529 Diabetes mellitus type 1 E10.9 CAD (coronary artery disease) I25.10 Associated angina: without angina Coronary Disease-Associated Artery/Lesion type: [place] artery [place] vs. transplanted heart: [place] heart PVD (peripheral vascular disease) I73.9 Hypertension I10 Hypertension type: unspecified Dyslipidemia E78.5 Hypothyroidism E03.9 Hypothyroidism type: unspecified Diabetic nephropathy associated with type 1 diabetes mellitus E10.21 Hyponatremia E87.1 Folate deficiency E53.8 Below-knee amputation of right lower extremity S88.111A Clostridium difficile colitis A04.72 (1) CAD (coronary artery disease) Associated angina: without angina Coronary Disease-Associated Artery/Lesion type: [place] artery [place] vs. transplanted heart: [place] heart Qualified Code(s): I25.10 - Atherosclerotic heart disease of [place] coronary artery without angina pectoris (2) Hypothyroidism Hypothyroidism type: unspecified Qualified Code(s): E03.9 - Hypothyroidism, unspecified (3) Hypertension Hypertension type: unspecified Qualified Code(s): I10 - Essential (primary) hypertension
[2021-11-12 12:32] LABS: Hemoglobin 11.3 g/dL (14.0-18.0); Mean Corpuscular Hemoglobin 28.6 pg (25-34); Mean Corpuscular Hgb Conc 33.2 g/dL (32-36); Mean Corpuscular Volume 86.1 fL (80-100); Mean Platelet Volume 9.3 fL (7.4-10.4); Platelet Count 274 K/uL (130-400); RDW Coefficient of Variation 14.3 % (11.5-14.5); RDW Standard Deviation 45.3 fL (36.4-46.3); Red Blood Count 3.95 M/uL (4.7-6.1); White Blood Count 11.44 K/uL (4.8-10.8)
[2021-11-12] MEDS: HEPARIN SODIUM/DEXTROSE 25,000 UNITS/500 ML BAG IV SCH (12:40)
[2021-11-12] MEDS: LOPERAMIDE HCL 2 MG CAP PO PRN ×2 (16:10→19:06)
[2021-11-12] MEDS: DAPTOmycin 425 MG in SYRINGE 0 ML IV SCH (19:25)
[2021-11-12] MEDS: ATORVASTATIN 40 MG TAB PO SCH (22:10)
[2021-11-12] MEDS ORDERED: INSULIN HUMAN REGULAR PER UNIT 8 UNITS in SYRINGE 7.92 ML IV ONE (22:45)
[2021-11-13] MEDS: INSULIN ASPART PER UNIT SC SCH ×6 (00:26→20:50)
[2021-11-13] MEDS: LEVOTHYROXINE SODIUM 175 MCG TABLET PO SCH (06:00)
[2021-11-13] MEDS: HEPARIN SODIUM/DEXTROSE 25,000 UNITS/500 ML BAG IV SCH (08:00)
[2021-11-13] MEDS: CALCITRIOL 0.25 MCG CAPSULE PO SCH (08:25)
[2021-11-13] MEDS: PIPERACILLIN/TAZOBACTAM 3.375 GM in DEXTROSE 5% 100 ML IV SCH ×2 (08:25→17:09)
[2021-11-13] MEDS: ADVANCED PROBIOTIC 1250 MG CAPSULE PO SCH (08:25)
[2021-11-13] MEDS: ASPIRIN 81 MG ECTAB PO SCH (08:25)
[2021-11-13] MEDS: FOLIC ACID 1 MG TAB PO SCH (08:25)
[2021-11-13] MEDS: FERROUS SULFATE 325 MG TAB PO SCH ×2 (08:25→20:55)
[2021-11-13] MEDS: POTASSIUM CHLORIDE CRTAB 20 MEQ TABCR PO SCH ×2 (08:25→20:56)
[2021-11-13] MEDS: METOPROLOL TARTRATE 25 MG TAB PO SCH ×2 (08:25→20:55)
[2021-11-13] MEDS: PANTOprazole 40 MG TAB PO SCH (08:25)
[2021-11-13] MEDS: CLOPIDOGREL BISULFATE 75 MG TAB PO SCH (08:25)
[2021-11-13 08:35] LABS: Hematocrit (blood only) 36.2 % (42-52); Hemoglobin 11.6 g/dL (14.0-18.0); Mean Corpuscular Hemoglobin 28.1 pg (25-34); Mean Corpuscular Volume 87.7 fL (80-100); Mean Platelet Volume 9.6 fL (7.4-10.4); Platelet Count 287 K/uL (130-400); RDW Coefficient of Variation 14.3 % (11.5-14.5); RDW Standard Deviation 45.6 fL (36.4-46.3); Red Blood Count 4.13 M/uL (4.7-6.1); White Blood Count 11.84 K/uL (4.8-10.8)
[2021-11-13 08:54] LABS: BUN Creatinine Ratio 11.3 (10-20); Calcium 8.3 mg/dl (8.5-10.1); Creatinine Clr Calc Pharmacy 101.7 ml/min; Est GFR (African American) 114.9 ml/min; Est GFR (Non-African American) 99.2 ml/min; Potassium 3.7 mmol/L (3.5-5.1)
[2021-11-13 09:13] LABS: Partial Thromboplastin Time 54.7 Seconds (21.0-31.0)
[2021-11-13] MEDS ORDERED: INSULIN GLARGINE SOLOSTAR 100 UNITS/ML 3 ML PEN SC ONE (13:00)
--- NOTE | 2021-11-13 13:55 | Pharmacy Report ---
Pharmacy Glycemic Short Note 2 - Date of Service November 13, 2021 - Glycemic Short BSG Results (Last 24 hours): 11/12/21 11/12/21 11/12/21 16:35 19:59 20:00 Glucose POC Glucose 333 H* 461 H* 482 H* 11/12/21 11/13/21 11/13/21 22:16 00:24 02:12 Glucose POC Glucose 442 H* 335 H* 316 H* 11/13/21 11/13/21 11/13/21 06:04 07:59 08:16 Glucose 268 H POC Glucose 263 H 308 H* 11/13/21 11:42 Glucose POC Glucose 326 H* OUTPATIENT ANTIDIABETIC REGIMEN: * Novolog insulin pump * HbA1c: 8.0% (11/11/21) ASSESSMENT: 11/13/21 * Patient's BSGs yesterday were [phone]. Patient received an 8 unit bolus yesterday evening for BSG of 461. * Patient corrected himself sporadically overnight. * Fasting today was 263 mg/dL. Lunch BSG was 326. * Nurse discussed with patient that due to high BSGs, it was prudent to remove insulin pump and manage basal/bolus. He is comfortable with this. Already gave lunch coverage. * Lantus 38 units x 1 and remove insulin pump 2 hours after this given. * Novolog based upon previous hospitalization. Background * Mr Chowdhury is a 66yo type 1 diabetic male, admitted with worsening DM foot ulcer/infection. * On admission last night, insulin pump was to be held and pt was initiated on SQ basal/bolus insulin. * BSGs have been on the low side today. When CDE visited pt today, he was found to still have his insulin pump running. SQ insulin orders stopped. * Will attempt to allow pt to manage himself with his insulin pump as long as BSGs are appropriate. * If BSGs become unstable, will convert back to SQ insulin. PLAN FOR INPATIENT GLYCEMIC CONTROL: * d/c insulin pump at 1600 today * Basal insulin * Lantus 38 units S Qx 1 * Bolus insulin --- per pump * NovoLog per scale ACHS or Q6hrs while NPO * Goal Range: Low 110 mg/dL - High 140 mg/dL * Correction Factor: 25 mg/dL/unit * Nutritional / Prandial insulin per carb ratio of 1 unit per 5 grams CHO consumed
--- NOTE | 2021-11-13 18:19 | Hospitalist Progress Note ---
Date of Service November 13, 2021 Assessment & Plan (1) Diabetic ulcer of left foot: Plan: - LLE erythema and edema that goes slightly above malleolus with several skin fissures, necrotic ulcerated wound on 1.) medial aspect of L great toe with eschar, 2.) medial aspect of third toe with some drainage and eschar, 3.) on upper lateral border of left sole with eschar, and 4.) on heel of left foot with necrotic tissue. - Pulses intact, extremity without pallor or decreased temperature, pt has diminished sensation at baseline, but has some sensation along medial and lateral aspect of foot. Minimal pain. - WBC improved but slightly bumped from 3/3; ESR/CRP elevated and can trend for response; procal 0.08 - XR - soft tissue swelling with no acute bony abnormality identified - U/S - complete occlusion of the [place] superficial femoral and popliteal arteries; bypass graft extending from superficial femoral artery to the posterior tibial artery with near complete to complete occlusion below the knee; no flow shown within the peroneal artery; anterior and posterior tibial arteries appear patent - Tib/Fib XR - no acute osseous pathology; old healed fractures of the distal tibia and fibula with post-traumatic deformity present; OA - Wound Cx - Pseudomonas and S. Aureus (MSSA) - Continue Zosyn and stop Dapto -- Reviewed previous Cx in system - no MRSA cultures and has grown pseudomonas in the past - Heparin gtt for PAD findings - Ortho consulted - Dr. Soto - anticipate metatarsal amputation pending vascular intervention - Vascular consulted - planning on arteriography on Monday (2) Clostridium difficile colitis: Plan: - H/O -- previously on slow long taper of po Vanc last admission - Does endorse taking MOM a couple days ago as he occ. has constipation. Added probiotic - Having liquid stool today that is dark. Is on iron supplementation -- Recent colonoscopy without abnormality; no abdominal pain; no fever; H&H stable - C. diff negative (3) Diabetes mellitus type 1: Plan: -Uncontrolled, has insulin pump outside of here - Having high glucose -- did require insulin gtt on last admission due to high s ugars -- asymptomatic with it -Pharmacy consult placed for glycemic management. -Heart healthy + CC diet. (4) CAD (coronary artery disease): Plan: -S/P CABG x 1 (2015). No chest pain today. -Continue statin, DAPT w/ ASA and Plavix, and metoprolol. -- Discussed that all three can remain for vascular procedure -- will need to talk with Dr. Eason to see if heparin gtt needs stopped prior to procedure as well as anti-platelets for ortho surgery -- Would like to avoid triple therapy (5) PVD (peripheral vascular disease): Plan: -B/L iliac artery stents (2014), R common/external iliac (2017), R common femoral endarterectomy (11/2018) with bovine patch. Left femoral to PT composite bypass graft (06/2020). (6) Hypertension: Plan: -Patient initially hypotensive in ED and responded to fluid bolus - BPs acceptable today -Continue Metoprolol 12.5 mg BID (7) Dyslipidemia: Plan: -Continue statin. (8) Hypothyroidism: Plan: -Continue levothyroxine. (9) Diabetic nephropathy associated with type 1 diabetes mellitus: Plan: -Documented hx of CKD stage 3, Cr and BUN appear wnl today. -Continue daily iron, calcitrol, and potassium supplement. -Renally dose all medications, avoid nephrotoxic agents. -Trend BMP daily. (10) Hyponatremia: Plan: -Na 136 (11) Folate deficiency: Plan: -Continue folic acid supplementation. (12) Below-knee amputation of right lower extremity: Plan: -June 2021. No acute issues. -Follows with Dr. Soto Plan: Await vascular intervention on Monday to drive ortho's intervention; if Hgb is stable can come off telemetry Attempted to call missy Jamil ([phone] - number given by patient) as number in chart does not work; did leave voicemail. Admission and Anticipated Discharge Date Admission Date: November 10, 2021 Subjective No acute events overnight. Reports doing well. BSGs have been elevated today. Insulin pump removed and orders adjusted. Having minimal pain in the foot mostly just in the heal. Is awaiting vascular intervention on Monday. Hgb is stable. Vitals stable. Verbalizes no new complaints. Review of Systems Review of Systems: All systems reviewed & are unremarkable except as noted in Subjective Physical Exam Physical Exam: PHYSICAL EXAM General Appearance: WDWN in NAD who is A&O x 3 HEENT: Head is normocephalic/atraumatic; Hearing grossly intact; Mucous membranes moist Neck: Supple; Trachea midline; Neg JVD Heart: RRR with no M/G/R Lungs: CTA in all lung fuller bilaterally; Respirations unlabored; Neg accessory muscle use Abdomen: Soft, non-tender, non-distended; Positive BS x 4 quadrants Extremities: R BKA; reviewed imaging placed by wound care as foot is currently wrapped Neurological: Speech clear; Gross motor/sensory function intact; Neg focal neurologic deficits Psychiatric: Appropriate mood/affect Skin: Normal Color; Warm/Dry; other than mentioned above Results & Data Results & Data ([facility]) Vital Signs (Past 12 Hours) Vital Signs Temp Pulse Pulse Resp BP BP Pulse Ox 11/13/21 16:12 70 11/13/21 15:41 36.8 C 71 18 152/76 H 96 11/13/21 12:00 36.6 C 76 18 136/77 98 11/13/21 08:12 86 11/13/21 08:00 36.7 C 76 18 116/70 97 PG Care Time/CCT Total # of Minutes Spent Total Time Spent with Patient: Total time spent is greater than 50% in coordination of care (as documented) at patient's floor/unit and/or counseling patient: Coding Level of Care Code 24730 Subseq Hosp Care Lvl 3 Diagnoses Diabetic ulcer of left foot E11.621; L97.529 Clostridium difficile colitis A04.72 Diabetes mellitus type 1 E10.9 CAD (coronary artery disease) I25.10 Associated angina: without angina Coronary Disease-Associated Artery/Lesion type: [place] artery [place] vs. transplanted heart: [place] heart PVD (peripheral vascular disease) I73.9 Hypertension I10 Hypertension type: unspecified Dyslipidemia E78.5 Hypothyroidism E03.9 Hypothyroidism type: unspecified Diabetic nephropathy associated with type 1 diabetes mellitus E10.21 Hyponatremia E87.1 Folate deficiency E53.8 Below-knee amputation of right lower extremity S88.111A (1) CAD (coronary artery disease) Associated angina: without angina Coronary Disease-Associated Artery/Lesion type: [place] artery [place] vs. transplanted heart: [place] heart Qualified Code(s): I25.10 - Atherosclerotic heart disease of [place] coronary artery without angina pectoris (2) Hypothyroidism Hypothyroidism type: unspecified Qualified Code(s): E03.9 - Hypothyroidism, unspecified (3) Hypertension Hypertension type: unspecified Qualified Code(s): I10 - Essential (primary) hypertension
[2021-11-13] MEDS ORDERED: INSULIN HUMAN REGULAR PER UNIT 8 UNITS in SYRINGE 7.92 ML IV ONE (20:00)
[2021-11-13] MEDS: ATORVASTATIN 40 MG TAB PO SCH (20:54)
[2021-11-14] MEDS: PIPERACILLIN/TAZOBACTAM 3.375 GM in DEXTROSE 5% 100 ML IV SCH ×4 (00:18→23:30)
[2021-11-14] MEDS: INSULIN ASPART PER UNIT SC SCH ×6 (00:41→20:35)
[2021-11-14] MEDS: MAGNESIUM HYDROXIDE SUSP 30 ML UDC PO PRN (01:27)
[2021-11-14] MEDS: HEPARIN SODIUM/DEXTROSE 25,000 UNITS/500 ML BAG IV SCH ×2 (02:28→21:48)
[2021-11-14] MEDS: LEVOTHYROXINE SODIUM 175 MCG TABLET PO SCH (05:35)
[2021-11-14 06:20] LABS: Basophils # (auto) 0.03 K/uL (0-0.2); Basophils % (auto) 0.3 %; Eosinophils % (auto) 4.3 %; Hematocrit (blood only) 35.7 % (42-52); Hemoglobin 11.8 g/dL (14.0-18.0); Immature Granulocytes # (auto) 0.02 K/uL (0.00-0.02); Immature Granulocytes % (auto) 0.2 %; Lymphocytes # (auto) 2.32 K/uL (1.2-3.4); Lymphocytes % (auto) 19.9 %; Mean Corpuscular Hemoglobin 28.6 pg (25-34); Mean Corpuscular Hgb Conc 33.1 g/dL (32-36); Mean Corpuscular Volume 86.7 fL (80-100); Mean Platelet Volume 9.5 fL (7.4-10.4); Monocytes # (auto) 0.81 K/uL (0.11-0.59); Monocytes % (auto) 6.9 %; Neutrophils # (auto) 7.98 K/uL (1.4-6.5); Neutrophils % (auto) 68.4 %; Platelet Count 321 K/uL (130-400); RDW Coefficient of Variation 14.2 % (11.5-14.5); RDW Standard Deviation 44.7 fL (36.4-46.3); Red Blood Count 4.12 M/uL (4.7-6.1); White Blood Count 11.66 K/uL (4.8-10.8)
[2021-11-14 06:39] LABS: Partial Thromboplastin Ratio 1.9
[2021-11-14 06:40] LABS: Partial Thromboplastin Time 51.6 Seconds (21.0-31.0)
[2021-11-14] MEDS: CALCITRIOL 0.25 MCG CAPSULE PO SCH (09:17)
[2021-11-14] MEDS: CLOPIDOGREL BISULFATE 75 MG TAB PO SCH (09:17)
[2021-11-14] MEDS: ASPIRIN 81 MG ECTAB PO SCH (09:17)
[2021-11-14] MEDS: ADVANCED PROBIOTIC 1250 MG CAPSULE PO SCH (09:17)
[2021-11-14] MEDS: FERROUS SULFATE 325 MG TAB PO SCH ×2 (09:18→20:34)
[2021-11-14] MEDS: POTASSIUM CHLORIDE CRTAB 20 MEQ TABCR PO SCH ×2 (09:18→20:35)
[2021-11-14] MEDS: METOPROLOL TARTRATE 25 MG TAB PO SCH ×2 (09:18→20:34)
[2021-11-14] MEDS: FOLIC ACID 1 MG TAB PO SCH (09:18)
[2021-11-14] MEDS: INSULIN GLARGINE SOLOSTAR 100 UNITS/ML 3 ML PEN SC SCH (09:18)
[2021-11-14] MEDS: PANTOprazole 40 MG TAB PO SCH (09:18)
--- NOTE | 2021-11-14 09:18 | Pharmacy Report ---
Pharmacy Glycemic Short Note 2 - Date of Service November 14, 2021 - Glycemic Short BSG Results (Last 24 hours): 11/13/21 11/13/21 11/13/21 11:42 16:42 16:45 POC Glucose 326 H* 499 H* 517 H* 11/13/21 11/13/21 11/14/21 19:21 20:33 00:22 POC Glucose 399 H* 230 H 73 11/14/21 11/14/21 04:29 07:37 POC Glucose 167 H 222 H OUTPATIENT ANTIDIABETIC REGIMEN: * Novolog insulin pump * HbA1c: 8.0% (11/11/21) ASSESSMENT: 11/14/21 * Patient's BSGs yesterday were [phone] and overnight were 73-167 mg/dL. Fasting today is 222 mg/dL. * Elevated BSG at dinnertime secondary to pump transition plus patient's own bolus at lunchtime. * Will give Lantus 38 units this morning to allow for some Lantus overlap and to decrease BSGs further. * Novolog as per previous as it does appear to have corrected patient appropriately. 11/13/21 * Patient's BSGs yesterday were [phone]. Patient received an 8 unit bolus yesterday evening for BSG of 461. * Patient corrected himself sporadically overnight. * Fasting today was 263 mg/dL. Lunch BSG was 326. * Nurse discussed with patient that due to high BSGs, it was prudent to remove insulin pump and manage basal/bolus. He is comfortable with this. Already gave lunch coverage. * Lantus 38 units x 1 and remove insulin pump 2 hours after this given. * Novolog based upon previous hospitalization. Background * Mr Chowdhury is a 66yo type 1 diabetic male, admitted with worsening DM foot ulcer/infection. * On admission last night, insulin pump was to be held and pt was initiated on SQ basal/bolus insulin. * BSGs have been on the low side today. When CDE visited pt today, he was found to still have his insulin pump running. SQ insulin orders stopped. * Will attempt to allow pt to manage himself with his insulin pump as long as BSGs are appropriate. * If BSGs become unstable, will convert back to SQ insulin. PLAN FOR INPATIENT GLYCEMIC CONTROL: * Basal insulin * Lantus 38 units SQ daily * Bolus insulin --- per pump * NovoLog per scale ACHS or Q6hrs while NPO * Goal Range: Low 110 mg/dL - High 140 mg/dL * Correction Factor: 25 mg/dL/unit * Nutritional / Prandial insulin per carb ratio of 1 unit per 5 grams CHO consumed
--- NOTE | 2021-11-14 11:28 | Hospitalist Progress Note ---
Date of Service November 14, 2021 Assessment & Plan (1) Diabetic ulcer of left foot: Plan: - LLE erythema and edema that goes slightly above malleolus with several skin fissures, necrotic ulcerated wound on 1.) medial aspect of L great toe with eschar, 2.) medial aspect of third toe with some drainage and eschar, 3.) on upper lateral border of left sole with eschar, and 4.) on heel of left foot with necrotic tissue. - Pulses intact, extremity without pallor or decreased temperature, pt has diminished sensation at baseline, but has some sensation along medial and lateral aspect of foot. Minimal pain. - WBC improved but slightly bumped from 11/11; ESR/CRP elevated and can trend for response; procal 0.08 - XR - soft tissue swelling with no acute bony abnormality identified - U/S - complete occlusion of the [place] superficial femoral and popliteal arteries; bypass graft extending from superficial femoral artery to the posterior tibial artery with near complete to complete occlusion below the knee; no flow shown within the peroneal artery; anterior and posterior tibial arteries appear patent - Tib/Fib XR - no acute osseous pathology; old healed fractures of the distal tibia and fibula with post-traumatic deformity present; OA - Wound Cx - Pseudomonas and S. Aureus (MSSA) - Continue Zosyn and stopped Dapto -- Reviewed previous Cx in system - no MRSA cultures and has grown pseudomonas in the past - Heparin gtt for PAD findings - Ortho consulted - Dr. Soto - anticipate metatarsal amputation or BKA pending vascular intervention - Vascular consulted - planning on arteriography on Monday -- do not need to stop antiplatelets or drip prior to procedure per discussion with Vascular (2) Clostridium difficile colitis: Plan: - H/O -- previously on slow long taper of po Vanc last admission - Does endorse taking MOM a couple days ago as he occ. has constipation. Added probiotic - Having liquid stool on 11/12 that is dark. Is on iron supplementation -- Recent colonoscopy without abnormality; no abdominal pain; no fever; H&H stable - C. diff negative (3) Diabetes mellitus type 1: Plan: -Uncontrolled, has insulin pump outside of here - Having high glucose -- did require insulin gtt on last admission due to high sugars -- asymptomatic with it -Pharmacy consult placed for glycemic management. -Heart healthy + CC diet. (4) CAD (coronary artery disease): Plan: -S/P CABG x 1 (2015). No chest pain today. -Continue statin, DAPT w/ ASA and Plavix, and metoprolol. -- Discussed that all three can remain for vascular procedure -- will need to talk with ortho in regards to anti-platelets for ortho surgery -- Would like to avoid triple therapy (5) PVD (peripheral vascular disease): Plan: -B/L iliac artery stents (2014), R common/external iliac (2017), R common femor al endarterectomy (11/2018) with bovine patch. Left femoral to PT composite bypass graft (06/2020). (6) Hypertension: Plan: -Patient initially hypotensive in ED and responded to fluid bolus - BPs acceptable today -Continue Metoprolol 12.5 mg BID (7) Dyslipidemia: Plan: -Continue statin. (8) Hypothyroidism: Plan: -Continue levothyroxine. (9) Diabetic nephropathy associated with type 1 diabetes mellitus: Plan: -Documented hx of CKD stage 3, Cr and BUN appear wnl today. -Continue daily iron, calcitrol, and potassium supplement. -Renally dose all medications, avoid nephrotoxic agents. -Trend BMP daily. (10) Hyponatremia: Plan: -Na 136 (11) Folate deficiency: Plan: -Continue folic acid supplementation. (12) Below-knee amputation of right lower extremity: Plan: -June 2021. No acute issues. -Follows with Dr. Soto Plan: Await vascular intervention on Monday to drive ortho's intervention; removed from tele Attempted to call daughter Loulou ([phone] - number given by patient) as number in chart does not work; did leave voicemail. Patient has been updating her and is a good historian Admission and Anticipated Discharge Date Admission Date: November 10, 2021 Subjective No acute events overnight. BSGs are improving today. He continues to have minimal pain in his L foot mostly just at the heel. He is due for vascular surgery tomorrow and then likely orthopedic intervention. He is tolerating a diet without issue. States his stool is starting to form more. He verbalizes no new complaints Review of Systems Review of Systems: All systems reviewed & are unremarkable except as noted in Subjective Physical Exam Physical Exam: PHYSICAL EXAM General Appearance: WDWN in NAD who is A&O x 3 HEENT: Head is normocephalic/atraumatic; Hearing grossly intact; Mucous membranes moist Neck: Supple; Trachea midline; Neg JVD Heart: RRR with no M/G/R Lungs: CTA in all lung fuller bilaterally; Respirations unlabored; Neg accessory muscle use Abdomen: Soft, non-tender, non-distended; Positive BS x 4 quadrants Extremities: R BKA with small scab noted to the anterior midline of the stump without drainage or erythema; reviewed imaging placed by wound care as foot is currently wrapped Neurological: Speech clear; Gross motor/sensory function intact; Neg focal neurologic deficits Psychiatric: Appropriate mood/affect Skin: Normal Color; Warm/Dry; other than mentioned above Results & Data Results & Data ([facility]) Vital Signs (Past 12 Hours) Vital Signs Temp Pulse Resp BP Pulse Ox 11/14/21 06:29 36.8 C 79 18 150/78 H 97 11/13/21 23:34 36.8 C 76 18 128/66 99 PG Care Time/CCT Total # of Minutes Spent Total Time Spent with Patient: Total time spent is greater than 50% in coordination of care (as documented) at patient's floor/unit and/or counseling patient: Coding Level of Care Code 97772 Subseq Hosp Care Lvl 3 Diagnoses Diabetic ulcer of left foot E11.621; L97.529 Clostridium difficile colitis A04.72 Diabetes mellitus type 1 E10.9 CAD (coronary artery disease) I25.10 Coronary Disease-Associated Artery/Lesion type: [place] artery [place] vs. transplanted heart: [place] heart Associated angina: without angina PVD (peripheral vascular disease) I73.9 Hypertension I10 Hypertension type: unspecified Dyslipidemia E78.5 Hypothyroidism E03.9 Hypothyroidism type: unspecified Diabetic nephropathy associated with type 1 diabetes mellitus E10.21 Hyponatremia E87.1 Folate deficiency E53.8 Below-knee amputation of right lower extremity S88.111A (1) CAD (coronary artery disease) Coronary Disease-Associated Artery/Lesion type: [place] artery [place] vs. transplanted heart: [place] heart Associated angina: without angina Qualified Code(s): I25.10 - Atherosclerotic heart disease of [place] coronary artery wit hout angina pectoris (2) Hypertension Hypertension type: unspecified Qualified Code(s): I10 - Essential (primary) hypertension (3) Hypothyroidism Hypothyroidism type: unspecified Qualified Code(s): E03.9 - Hypothyroidism, unspecified
[2021-11-14] MEDS ORDERED: POTASSIUM CHLORIDE CRTAB 20 MEQ TABCR PO STA (13:23)
--- NOTE | 2021-11-14 13:25 | XRay Report ---
XR KUB/Abdomen 1 view CLINICAL HISTORY: Abdominal pain. Evaluate bowel gas pattern.. COMPARISON STUDY: 05/09/2021 TECHNIQUE: Single view of the abdomen. FINDINGS: The bowel gas pattern is within normal limits without evidence for dilatation or obstruction. There i s no evidence for organomegaly or gross intra-abdominal mass. No abnormal calcifications are seen devin ng the course of the urinary tracts bilaterally. No acute osseous pathology. IMPRESSION: 1.No acute intra-abdominal abnormality. ACT 112: Negative or not required by law. Electronically signed by: Jerzy Sharp M.D. 11/14/2021 1:23 PM
[2021-11-14] MEDS ORDERED: INSULIN HUMAN REGULAR PER UNIT 5 UNITS in SYRINGE 4.95 ML IV ONE (13:30)
[2021-11-14] MEDS: ATORVASTATIN 40 MG TAB PO SCH (20:34)
[2021-11-15] MEDS: LEVOTHYROXINE SODIUM 175 MCG TABLET PO SCH (05:52)
[2021-11-15] MEDS ORDERED: Nursing to Pharmacy Communication SCH ×2 (06:00→13:15)
[2021-11-15] MEDS: INSULIN ASPART PER UNIT SC SCH ×4 (06:07→21:04)
[2021-11-15 07:19] LABS: Hematocrit (blood only) 35.7 % (42-52); Hemoglobin 11.7 g/dL (14.0-18.0); Mean Corpuscular Hemoglobin 28.3 pg (25-34); Mean Corpuscular Hgb Conc 32.8 g/dL (32-36); Mean Corpuscular Volume 86.2 fL (80-100); Mean Platelet Volume 9.7 fL (7.4-10.4); Platelet Count 331 K/uL (130-400); RDW Coefficient of Variation 14.3 % (11.5-14.5); RDW Standard Deviation 45.3 fL (36.4-46.3); Red Blood Count 4.14 M/uL (4.7-6.1); White Blood Count 9.88 K/uL (4.8-10.8)
[2021-11-15] MEDS: PIPERACILLIN/TAZOBACTAM 3.375 GM in DEXTROSE 5% 100 ML IV SCH ×2 (07:27→15:09)
[2021-11-15] MEDS: ASPIRIN 81 MG ECTAB PO SCH (07:32)
[2021-11-15] MEDS: CLOPIDOGREL BISULFATE 75 MG TAB PO SCH (07:33)
[2021-11-15] MEDS: FERROUS SULFATE 325 MG TAB PO SCH ×2 (07:33→21:09)
[2021-11-15] MEDS: CALCITRIOL 0.25 MCG CAPSULE PO SCH (07:33)
[2021-11-15] MEDS: FOLIC ACID 1 MG TAB PO SCH (07:34)
[2021-11-15] MEDS: ADVANCED PROBIOTIC 1250 MG CAPSULE PO SCH (07:34)
[2021-11-15] MEDS: METOPROLOL TARTRATE 25 MG TAB PO SCH ×2 (07:34→21:07)
[2021-11-15] MEDS: PANTOprazole 40 MG TAB PO SCH (07:37)
[2021-11-15] MEDS: POTASSIUM CHLORIDE CRTAB 20 MEQ TABCR PO SCH (07:37)
[2021-11-15 07:40] LABS: BUN Creatinine Ratio 8.9 (10-20); Calcium 8.7 mg/dl (8.5-10.1); Creatinine Clr Calc Pharmacy 91.4 ml/min; Est GFR (Non-African American) 94.9 ml/min; Potassium 4.9 mmol/L (3.5-5.1)
[2021-11-15 07:44] LABS: Partial Thromboplastin Ratio 1.8
[2021-11-15 07:47] LABS: Partial Thromboplastin Time 48.2 Seconds (21.0-31.0)
--- NOTE | 2021-11-15 07:58 | Hospitalist Progress Note ---
Date of Service November 15, 2021 Assessment & Plan (1) Diabetic ulcer of left foot: Plan: LLE erythema and edema that goes slightly above malleolus with several skin fissures, necrotic ulcerated wound on 1.) medial aspect of L great toe with eschar, 2.) medial aspect of third toe with some drainage and eschar, 3.) on upper lateral border of left sole with eschar, and 4.) on heel of left foot with necrotic tissue. Pulses intact, extremity without pallor or decreased temperature, pt has diminished sensation at baseline, but has some sensation along medial and lateral aspect of foot. Minimal pain. Wound Cx - Pseudomonas and S. Aureus (MSSA) Was on Dapto/Zosyn, Dapto since discontinued (no MRSA cx hx but has grown pseudomonas in past) XR - soft tissue swelling with no acute bony abnormality identified. XR Tib/fib with old healed fractures of the distal tibia and fibula with post-traumatic deformity present; OA On Heparin gtt for U/S with complete occlusion of the [place] superficial femoral and popliteal arteries; bypass graft extending from superficial femoral artery to the posterior tibial artery with near complete to complete occlusion below the knee; no flow shown within the peroneal artery; anterior and posterior tibial arteries appear patent Orthopedics, vascular on consult --> Plans for LLE Angiogram with Dr Eason today (do not need to stop antiplatelets or drip prior to procedure per discussion with Vascular), then likely will need transmetatarsal amputation vs BKA with Dr Soto WBC improved but slightly bumped from 11/11; ESR/CRP elevated and can trend for response; procal 0.08 --> WBC currently 9.8k, afebrile D51/2Nss @70cc/hr while NPO awaiting surgery given low BSGs overnight (ok this morning) To OR this morning for angio, then Dr Soto to discuss need/level of amputation Follow labs in AM (2) Clostridium difficile colitis: Plan: H/O -- previously on slow long taper of po Vanc last admission - Does endorse taking MOM a couple days ago as he occ. has constipation. Added probiotic - Having liquid stool on 11/12 that is dark. Is on iron supplementation -- Recent colonoscopy without abnormality; no abdominal pain; no fever; H&H stable - C. diff negative Less loose stools, monitor for increased diarrhea, repeat testing if needed (3) Diabetes mellitus type 1: Plan: -Uncontrolled, has insulin pump outside of here - Having high glucose -- did require insulin gtt on last admission due to high sugars -- asymptomatic with it -Pharmacy consult placed for glycemic management. -Heart healthy + CC diet. (4) CAD (coronary artery disease): Plan: -S/P CABG x 1 (2015). No chest pain today. -Continue statin, DAPT w/ ASA and Plavix, and metoprolol. -- Discussed that all three can remain for vascular procedure -- will need to talk with ortho in regards to anti-platelets for ortho surgery -- Would like to avoid triple therapy (5) PVD (peripheral vascular disease): Plan: -B/L iliac artery stents (2014), R common/external iliac (2017), R common femoral endarterectomy (11/2018) with bovine patch. Left femoral to PT composite bypass graft (06/2020). as above, angio for today for LLE (6) Hypertension: Plan: -Patient initially hypotensive in ED and responded to fluid bolus - BPs acceptable today -Continue Metoprolol 12.5 mg BID (7) Dyslipidemia: Plan: -Continue statin. (8) Hypothyroidism: Plan: -Continue levothyroxine. (9) Diabetic nephropathy associated with type 1 diabetes mellitus: Plan: -Documented hx of CKD stage 3, Cr and BUN appear wnl today. -Continue daily iron, calcitrol, and potassium supplement. -Renally dose all medications, avoid nephrotoxic agents. -Trend BMP daily. (10) Hyponatremia: Plan: -Na 136 (11) Folate deficiency: Plan: -Continue folic acid supplementation. (12) Below-knee amputation of right lower extremity: Plan: -June 2021. No acute issues. -Follows with Dr. Soto Plan: Vascular intervention this morning, to determine ortho's intervention moving forward Attempted to call daughter Loulou ([phone] - number given by patient) as number in chart does not work; did leave voicemail. Patient has been updating her and is a good historian Admission and Anticipated Discharge Date Admission Date: November 10, 2021 Supervising Physician Co-Signing Physician Notes PA Supervision Note: I did not personally see or examine the patient today, but I verified all perez points of BENITO Preston's assessment and plan with the following exceptions/additions: None Subjective Patient evaluated this morning Doing alright Discouraged about being in the hospital so frequently, but states did get decent sleep He is hoping that angiography shows enough blood flow to increase level of need for amputation. He notes if needed, they could repeat the AKA like the other side. He has prosthesis for his other leg, but hasn't been able to use much given inpatient status. Pain currently controlled. Black eschar to great toe, pulseless. Blood sugars improved from yesterday afternoon highs, but then had lows. Not on his usual insulin pump and previously with issues with such. Denies fever/chills, chest pain, shortness of breath, abd pain, n/v at this time. Main concerns about continued abx are cdiff given prior infection although he states loose stool slowed compared to days prior. Some loose brown stool noted in bedside commode. Review of Systems Review of Systems: All systems reviewed & are unremarkable except as noted in HPI & below Physical Exam Physical Exam: PHYSICAL EXAM General Appearance: WD/WN elderly male, laying in bed, NAD HEENT: Head normocephalic/atraumatic; Hearing grossly intact; Mucous membranes moist Neck: Supple; Trachea midline; Neg JVD Heart: RRR with no M/G/R Lungs: CTA in all lung fuller bilaterally; Respirations unlabored; Neg accessory muscle use, on room air SpO2 97% Abdomen: +BS throughout, soft, non-tender Extremities: R BKA with small scab noted to the anterior midline of the stump without drainage or erythema, non-tender; reviewed imaging placed by wound care as foot is currently wrapped but also noted R great toe eschar, absent pulse Neurological: Speech clear; Gross motor/sensory function intact; Neg focal neurologic deficits Psychiatric: AOx3, depressed affect Skin: Normal Color; Warm/Dry; other than mentioned above Results & Data Results & Data ([facility]) Vital Signs (Past 12 Hours) Vital Signs Temp Pulse Resp BP Pulse Ox 11/15/21 07:23 36.7 C 72 18 149/79 H 97 11/14/21 22:24 37 C 76 16 136/65 97 Laboratory Results 11/15/21 11/15/21 11/15/21 Range/Units 06:49 06:49 06:49 WBC 9.88 (4.8-10.8) K/uL RBC 4.14 L (4.7-6.1) M/uL Hgb 11.7 L (14.0-18.0) g/dL Hct 35.7 L (42-52) % MCV 86.2 (80-100) fL MCH 28.3 (25-34) pg MCHC 32.8 (32-36) g/dL RDW Std Deviation 45.3 (36.4-46.3) fL RDW Coeff of Chan 14.3 (11.5-14.5) % Plt Count 331 (130-400) K/uL MPV 9.7 (7.4-10.4) fL APTT Pending PTT Ratio Pending Sodium 140 (136-145) mmol/L Potassium 4.9 D (3.5-5.1) mmol/L Chloride 104 (98-107) mmol/L Carbon Dioxide 30 (21-32) mmol/L Anion Gap 6 (3-11) BUN 7 (6-23) mg/dl Creatinine 0.79 (0.6-1.4) mg/dl Est Cr Clr Drug Dosing 91.4 ml/min Est GFR ( Amer) 110.0 ml/min Est GFR (Non-Af Amer) 94.9 ml/min BUN/Creatinine Ratio 8.9 L (10-20) Glucose 124 H (70-99(Fasting)) mg/dl POC Glucose (70-99) mg/dl Calcium 8.7 (8.5-10.1) mg/dl 11/15/21 11/15/21 11/14/21 Range/Units 05:59 00:22 20:15 WBC (4.8-10.8) K/uL RBC (4.7-6.1) M/uL Hgb (14.0-18.0) g/dL Hct (42-52) % MCV (80-100) fL MCH (25-34) pg MCHC (32-36) g/dL RDW Std Deviation (36.4-46.3) fL RDW Coeff of Chan (11.5-14.5) % Plt Count (130-400) K/uL MPV (7.4-10.4) fL APTT PTT Ratio Sodium (136-145) mmol/L Potassium (3.5-5.1) mmol/L Chloride (98-107) mmol/L Carbon Dioxide (21-32) mmol/L Anion Gap (3-11) BUN (6-23) mg/dl Creatinine (0.6-1.4) mg/dl Est Cr Clr Drug Dosing ml/min Est GFR ( Amer) ml/min Est GFR (Non-Af Amer) ml/min BUN/Creatinine Ratio (10-20) Glucose (70-99(Fasting)) mg/dl POC Glucose 113 H 118 H 168 H (70-99) mg/dl Calcium (8.5-10.1) mg/dl 11/14/21 11/14/21 11/14/21 Range/Units 18:42 17:02 16:40 WBC (4.8-10.8) K/uL RBC (4.7-6.1) M/uL Hgb (14.0-18.0) g/dL Hct (42-52) % MCV (80-100) fL MCH (25-34) pg MCHC (32-36) g/dL RDW Std Deviation (36.4-46.3) fL RDW Coeff of Chan (11.5-14.5) % Plt Count (130-400) K/uL MPV (7.4-10.4) fL APTT PTT Ratio Sodium (136-145) mmol/L Potassium (3.5-5.1) mmol/L Chloride (98-107) mmol/L Carbon Dioxide (21-32) mmol/L Anion Gap (3-11) BUN (6-23) mg/dl Creatinine (0.6-1.4) mg/dl Est Cr Clr Drug Dosing ml/min Est GFR ( Amer) ml/min Est GFR (Non-Af Amer) ml/min BUN/Creatinine Ratio (10-20) Glucose (70-99(Fasting)) mg/dl POC Glucose 163 H 67 L* 61 L* (70-99) mg/dl Calcium (8.5-10.1) mg/dl 11/14/21 11/14/21 11/14/21 Range/Units 16:37 14:13 11:44 WBC (4.8-10.8) K/uL RBC (4.7-6.1) M/uL Hgb (14.0-18.0) g/dL Hct (42-52) % MCV (80-100) fL MCH (25-34) pg MCHC (32-36) g/dL RDW Std Deviation (36.4-46.3) fL RDW Coeff of Chan (11.5-14.5) % Plt Count (130-400) K/uL MPV (7.4-10.4) fL APTT PTT Ratio Sodium (136-145) mmol/L Potassium (3.5-5.1) mmol/L Chloride (98-107) mmol/L Carbon Dioxide (21-32) mmol/L Anion Gap (3-11) BUN (6-23) mg/dl Creatinine (0.6-1.4) mg/dl Est Cr Clr Drug Dosing ml/min Est GFR ( Amer) ml/min Est GFR (Non-Af Amer) ml/min BUN/Creatinine Ratio (10-20) Glucose (70-99(Fasting)) mg/dl POC Glucose 49 L* 256 H 345 H* (70-99) mg/dl Calcium (8.5-10.1) mg/dl Diagnostic Findings KUB X-Ray 11/14/21 11:05 XR KUB/Abdomen 1 view CLINICAL HISTORY: Abdominal pain. Evaluate bowel gas pattern.. COMPARISON STUDY: 05/09/2021 TECHNIQUE: Single view of the abdomen. FINDINGS: The bowel gas pattern is within normal limits without evidence for dilatation or obstruction. There is no evidence for organomegaly or gross intra-abdominal mass. No abnormal calcifications are seen along the course of the urinary tracts bilaterally. No acute osseous pathology. IMPRESSION: 1.No acute intra-abdominal abnormality. ACT 112: Negative or not required by law. Electronically signed by: Jerzy Sharp M.D. 11/14/2021 1:23 PM PG Care Time/CCT Total # of Minutes Spent Total Time Spent with Patient: Total time spent is greater than 50% in coordination of care (as documented) at patient's floor/unit and/or counseling patient: Coding Level of Care Code 10440 Subseq Hosp Care Lvl 3 Diagnoses Diabetic ulcer of left foot E11.621; L97.529 Clostridium difficile colitis A04.72 Diabetes mellitus type 1 E10.9 CAD (coronary artery disease) I25.10 Associated angina: without angina Coronary Disease-Associated Artery/Lesion type: [place] artery [place] vs. transplanted heart: [place] heart PVD (peripheral vascular disease) I73.9 Hypertension I10 Hypertension type: unspecified Dyslipidemia E78.5 Hypothyroidism E03.9 Hypothyroidism type: unspecified Diabetic nephropathy associated with type 1 diabetes mellitus E10.21 Hyponatremia E87.1 Folate deficiency E53.8 Below-knee amputation of right lower extremity S88.111A (1) CAD (coronary artery disease) Associated angina: without angina Coronary Disease-Associated Artery/Lesion type: [place] artery [place] vs. transplanted heart: [place] heart Qualified Code(s): I25.10 - Atherosclerotic heart disease of [place] coronary artery without angina pectoris (2) Hypothyroidism Hypothyroidism type: unspecified Qualified Code(s): E03.9 - Hypothyroidism, unspecified (3) Hypertension Hypertension type: unspecified Qualified Code(s): I10 - Essential (primary) hypertension
[2021-11-15] MEDS ORDERED: D5W AND 1/2NSS 1,000 ML IV SCH (08:00)
[2021-11-15] MEDS: INSULIN GLARGINE SOLOSTAR 100 UNITS/ML 3 ML PEN SC SCH (08:54)
--- NOTE | 2021-11-15 10:07 | History & Physical Bridge Note ---
Date of Service November 15, 2021 History & Physical Bridge Note Patient for arteriography of left lower extremity. I have discussed the risks options and benefits of the procedure with the patient. The patient understands the risks options and benefits and agrees to the procedure. I have examined the patient, reviewed the History & Physical and in the interval since the performance of the History & Physical I have noted the following changes of clinical significance: no changes noted
[2021-11-15] MEDS ORDERED: fentaNYL citrate 100 MCG/2 ML VIAL ONE (10:09)
[2021-11-15] MEDS ORDERED: MIDAZOLAM HCL 1 MG/ML 2ML VIAL ONE (10:09)
[2021-11-15] MEDS ORDERED: HEPARIN SOD (PORCINE) 1000 UNIT/ML ONE (10:09)
--- NOTE | 2021-11-15 10:43 | Pre Anesthesia Assessment ---
Date of Service November 15, 2021 Pre Sedation Assessment Vital Signs Temp Pulse Resp BP Pulse Ox 11/15/21 10:41 16 166/68 H 100 11/15/21 10:24 36.8 C 68 22 129/64 97 11/15/21 07:23 36.7 C 72 18 149/79 H 97 11/14/21 22:24 37 C 76 16 136/65 97 11/14/21 15:53 36.8 C 71 18 132/77 97 Cardiovascular RRR, no murmur, no edema Respiratory normal respiratory effort, lungs clear to auscultation Pre-Sedation Airway Assessment Smoking Status: Former smoker Hx Sleep Apnea: No Short, Thick Neck: No Thyromental Distance: > or= 3.5 Finger Breadths Oral Cavity: + Dentures Mallampati Class: II ASA: ASA3 NPO Status Date of Last Intake of Fluids: 11/15/21 Time of Last Intake of Fluids: 00:00 Last Oral Intake of Fluids Comment: sips with med Date of Last Intake of Solid Food: 11/15/21 Time of Last Intake of Solid Foods: 00:00 Procedure Planning Contraindications for Sedation: none Current Medications Reviewed: Yes Notes The planned sedation has been discussed with the patient. Informed Consent was obtained. I have identified the patient, determined the appropriateness of sedation and have assessed the patient immediately prior to the procedure. All medicine(s) and interventions are by my order.
--- NOTE | 2021-11-15 11:38 | Post Operative Brief Note ---
Immediate Post Op Note v1 Date of Surgery November 15, 2021 Pre & Post Diagnosis Operation Date: 11/15/21 11:25 Pre-Op Diagnosis: osteomyelitis left foot Post-Op Diagnosis: osteomyelitis left foot I identified the patient and participated in the time-out.: Yes Procedure Operation Date: 11/15/21 11:25 Actual Procedures p Left Lower Extremity Angiogram, ultrasound localization of right femoral artery, mechanical closure of right femoral artery moderate sedation 1050- (Right) - Floyd Eason MD Surgeon Floyd Eason MD Lube Technician MD Norris Estimated Blood Loss 15 Findings Consistent with Post-Op Diagnosis Anesthesia Type RN Sedation Complications none Disposition Accompanied Patient To Recovery: No Disposition: Recovery Room
[2021-11-15] MEDS ORDERED: VISIPAQUE IV PRN (11:39)
[2021-11-15] MEDS ORDERED: LIDOCAINE 1% LOCAL 20 ML VIAL INJ ONE (11:39)
--- NOTE | 2021-11-15 11:41 | Post Anesthesia Assessment ---
Date of Service November 15, 2021 Post Sedation Assessment Vital Signs Temp Pulse Pulse Resp BP Pulse Ox 11/15/21 11:38 69 16 163/85 H 100 11/15/21 11:35 71 16 157/76 H 100 11/15/21 11:30 68 16 162/78 H 100 11/15/21 11:25 66 16 156/71 H 100 11/15/21 11:20 64 16 143/65 H 100 11/15/21 11:15 64 16 143/66 H 100 11/15/21 11:10 63 16 143/64 H 100 11/15/21 11:05 65 16 139/63 100 11/15/21 11:00 66 16 132/64 100 11/15/21 10:55 72 16 178/78 H 100 11/15/21 10:50 69 16 172/73 H 100 11/15/21 10:41 71 16 166/68 H 100 11/15/21 10:24 36.8 C 68 22 129/64 97 11/15/21 07:23 36.7 C 72 18 149/79 H 97 11/14/21 22:24 37 C 76 16 136/65 97 11/14/21 15:53 36.8 C 71 18 132/77 97 Recovery Score Activity: Moves 4 extremities Respiration: Deep Breath/Cough Circulation: +/-20% PreAnes Value Consciousness: Fully Awake Oxygen Saturation: > 92% On Room Air Post Anesthesia Score: 10 Discharge Sedation Level of Care: Fast Track Phase II Post Sedation Plan On clinical assessment, the patient appears to have tolerated the sedation without complications. Patient is recovering as anticipated. Patient will continue to be monitored by nursing and may be discharged when sedation discharge criteria are met per below protocol. Upon Completions of procedure up to 15 minutes continue every 5 minute vital signs and the P.A.R. score; then discharge to a Phase I or Fast Track to Phase II per the following guidelines: * Discharge Patient to appropriate Phase II area if PAR is 8 or greater or return to pre- procedure baseline. The post - procedure orders will be as directed. * If PAR score is less than 8 or not return to pre-procedure baseline then patient will follow Phase I monitoring till PAR is reached for Phase II. The Phase I may be done in procedure room or may call to secure a Phase I area. * If naloxone or flumazenil are used for reversal, hold in Phase I for co ntinued monitoring from when last reversal dose was given for a minimum of 60 minutes or longer pending the nurse and/or physician discretion of patient condition before discharge to Phase II. Please call the Sedation Physician to re-evaluate and complete post-note for discharge to Phase II area. Do NOT discharge from procedure sedation or Phase 1 until post- sedation evaluation note is complete by procedure /sedation MD Sedation Discharge Instructions to be given to the patient at discharge to home.
--- NOTE | 2021-11-15 14:20 | Procedure Note ---
Angiogram Post Procedure Fluoroscopy Time (minutes): 13.6 Conscious Sedation Time (minutes): 53 Radiation (mGy): 108.88 Post Operative Report Pre & Post Diagnosis Operation Date: 11/15/21 11:25 Pre-Op Diagnosis: osteomyelitis left foot Post-Op Diagnosis: osteomyelitis left foot Operation Date: 11/19/21 07:30 <No data on this case meets the specified criteria> I identified the patient and participated in the time-out.: Yes Procedure Operation Date: 11/15/21 11:25 Actual Procedures p Left Lower Extremity Angiogram, ultrasound localization of right femoral artery, mechanical closure of right femoral artery moderate sedation [id number] 1143(Right) - Floyd Eason MD Operation Date: 11/19/21 07:30 <No data on this case meets the specified criteria> Surgeon Floyd Eason MD Housekeeping Associate MD Norris Estimated Blood Loss 15 Findings Consistent with Post-Op Diagnosis See description of procedure Specimens None Complications none Description of Procedure The patient was taken to the operating suite. The patient's identity, surgical site, and procedure were verified. The patient was transferred over to the operating room table and placed in the supine position. The bilateral groins were prepped and draped in the usual sterile fashion. A team timeout was performed. Under ultrasound guidance the right common femoral artery was accessed with a 19G needle. This area had significant scar tissue in the subcutaneous area. The area of access on the anterior wall of the vessel was free of calcification. A J-wire was advanced through the needle. The needle was exchanged for a 5F sheath. An arteriogram of the access was performed which showed that the access was in the common femoral artery over the femoral head. An 0.035" angled glidewire was advanced into the aorta. A rim catheter was advanced over the wire. Angiography performed here demonstrated patency of the bilateral iliac stents. The contralateral iliac system was difficult to access because the aorta was of small caliber at its bifurcation and this was a very acute angle. Ultimately we were able to get into the contralateral iliac artery using a combination of rim catheter, then quickcross catheter. We shot down the leg with our quickcross catheter parked in the proximal left external iliac. This demonstrated a patent femoral bypass originating from the common femoral artery but the flow through this was very sluggish. The profunda femoris artery was patent. The superficial femoral artery was occluded at its origin. The anterior tibial artery reconstituted via collaterals in its proximal segment was patent along its length down to the foot. The posterior tibial artery also appeared to reconstitute via collaterals in its proximal segment and was patent along its length down to the foot. However the anterior tibial artery appeared to provide the dominant flow to the foot. In order to further interrogate the bypass we attempted to advance our wire and quickcross catheter into the bypass however this buckled into the aorta so u ltimately a qureshi's hook catheter was used to access the contralateral iliac artery, a stiff angled glidewire was used to go down the iliac system into the femoral artery, and then a quickcross catheter was advanced over the wire and we were able to select the bypass. Shooting right through the bypass then following with several heparin saline flushes we were able to see that the bypass was pat ent down to the level of the knee. It occluded at its distal aspect but there appeared to be a very small collateral vessel arising from this segment, likely accounting for the patency of the bypass. The catheter was removed. The right femoral artery access site was imaged using manual contrast injection and the access site was noted to be in the femoral artery over the femoral head. A starclose device was deployed and the access site was hemostatic. Manual pressure was held over the access site for 5 minutes. No hematoma was noted. The patient tolerated the procedure well and without immediate complication. He was taken to the recovery room in satisfactory condition. Dr. Eason was present and scrubbed for the entirety of the procedure. I attest to the content of the Intraoperative Record and any orders documented therein. Any exceptions are noted below.
--- NOTE | 2021-11-15 14:52 | Ultrasound Report ---
US venous mapping LE LT CLINICAL HISTORY: pre bypass, left greater and lesser saphenous COMPARISON: None available at the time of this dictation. TECHNIQUE: Left lower extremity real-time venous ultrasound with Color Doppler imaging. Utilizing real-time ultrasonic imaging multiple real time high-resolution ultrasonic images with comp ression and noncompression maneuvers of the deep venous system in addition to color doppler imaging w ere performed from the common femoral vein through the proximal calf veins. FINDINGS: The left greater saphenous vein appears patent and usable as a graft. A segment of the deep femoral v ein at the level of the circumflex is seen measuring approximately 5 mm x 5 mm, 13 mm in depth and ap proximately 10 cm in length. The lesser saphenous vein measures approximately 8 cm in length. Proximally, it measures 5 x 3 mm, 20 mm in depth. In the midsegment, it measures approximately 7 x 4 mm, 13 mm in depth. Most distally, i t measures 4 x 4 mm, 12 mm in depth. Impression: Left saphenous vein appears satisfactory for graft. Please see detailed findings above. ACT 112: Negative or not required by law. Electronically signed by: Lazaro De León M.D. 11/15/2021 2:50 PM
[2021-11-15] MEDS: ACETAMINOPHEN 325 MG TAB PO PRN ×2 (15:15→23:06)
[2021-11-15] MEDS: HEPARIN SODIUM/DEXTROSE 25,000 UNITS/500 ML BAG IV SCH (17:53)
[2021-11-15 18:29] LABS: Partial Thromboplastin Ratio 1.6; Partial Thromboplastin Time 44.7 Seconds (21.0-31.0)
[2021-11-15] MEDS: ATORVASTATIN 40 MG TAB PO SCH (21:10)
[2021-11-16] MEDS: PIPERACILLIN/TAZOBACTAM 3.375 GM in DEXTROSE 5% 100 ML IV SCH ×4 (00:36→23:45)
[2021-11-16 01:10] LABS: Partial Thromboplastin Ratio 1.8
[2021-11-16 01:17] LABS: Partial Thromboplastin Time 50.4 Seconds (21.0-31.0)
[2021-11-16] MEDS: LEVOTHYROXINE SODIUM 175 MCG TABLET PO SCH (06:13)
--- NOTE | 2021-11-16 07:46 | Hospitalist Progress Note ---
Date of Service November 16, 2021 Assessment & Plan (1) Diabetic ulcer of left foot: Plan: LLE erythema and edema that goes slightly above malleolus with several skin fissures, necrotic ulcerated wound on 1.) medial aspect of L great toe with eschar, 2.) medial aspect of third toe with some drainage and eschar, 3.) on upper lateral border of left sole with eschar, and 4.) on heel of left foot with necrotic tissue. Pulses intact, extremity without pallor or decreased temperature, pt has diminished sensation at baseline, but has some sensation along medial and lateral aspect of foot. Minimal pain. Wound Cx - Pseudomonas and S. Aureus (MSSA) Was on Dapto/Zosyn, Dapto since discontinued (no MRSA cx hx but has grown pseudomonas in past) XR - * soft tissue swelling with no acute bony abnormality identified. XR Tib/fib with old healed fractures of the distal tibia and fibula with post-traumatic deformity present; OA On Heparin gtt for U/S: * complete occlusion of the [place] superficial femoral and popliteal arteries; bypass graft extending from superficial femoral artery to the posterior tibial artery with near complete to complete occlusion below the knee; no flow shown within the peroneal artery; anterior and posterior tibial arteries appear patent Orthopedics, vascular on consult * POD #1 s/p Left Lower Extremity Angiogram, ultrasound localization of right femoral artery, mechanical closure of right femoral artery moderate sedation [id number](Right) - Floyd Eason MD. EBL 15cc. * --> Anterior tibial artery appeared to provide the dominant flow to the foot * Per discussion with Dr Eason, plans for femoral-anterior tibial bypass on Monday (will need to be NPO after night) * Messaged orthopedics with updated plan to see when surgical intervention can be undertaken, likely beginning of next week but will await to hear back WBC 10.7k, afebrile 500cc NS @ 80cc/hr for some mild dehydration on examination (had been having diarrhea days prior, slowed). cautious and test for cdiff if increased diarrhea Follow labs in AM (2) Clostridium difficile colitis: Plan: H/O -- previously on slow long taper of po Vanc last admission Does endorse taking MOM a couple days ago as he occ. has constipation. Added probiotic Having liquid stool on 11/12 that is dark. Is on iron supplementation -- Recent colonoscopy without abnormality; no abdominal pain; no fever; H&H stable C. diff negative Less loose stools (none since last nigth reported), monitor for increased diarrhea, repeat testing if needed On PO KCl 20meq BID supplementation for low K, will check mag as well and replacement if needed (3) Diabetes mellitus type 1: Plan: -Uncontrolled, has insulin pump outside of here - Having high glucose -- did require insulin gtt on last admission due to high sugars -- asymptomatic with it -Pharmacy consult placed for glycemic management. -Heart healthy + CC diet. (4) CAD (coronary artery disease): Plan: -S/P CABG x 1 (2015). No chest pain today. -Continue statin, DAPT w/ ASA and Plavix, and metoprolol. Discussed that all three can remain for vascular procedure -- will need to talk with ortho in regards to anti-platelets for ortho surgery -- Would like to avoid triple therapy (5) PVD (peripheral vascular disease): Plan: -B/L iliac artery stents (2014), R common/external iliac (2017), R common femoral endarterectomy (11/2018) with bovine patch. Left femoral to PT composite bypass graft (06/2020). as above, s/p angio and plans for bypass on monday with Dr Eason (6) Hypertension: Plan: -Patient initially hypotensive in ED and responded to fluid bolus - BPs acceptable today -Continue Metoprolol 12.5 mg BID (7) Dyslipidemia: Plan: -Continue statin. (8) Hypothyroidism: Plan: -Continue levothyroxine. (9) Diabetic nephropathy associated with type 1 diabetes mellitus: Plan: Documented hx of CKD stage 3, Cr and BUN appear wnl today. Continue daily iron, calcitrol, and potassium supplement. Renally dose all medications, avoid nephrotoxic agents. Given d5 1/2 for 500cc yesterday for low BSGs, acceptable today. No further D5 in IVF Cr 0.77 (10) Hyponatremia: Plan: Na 135, appears to have some mild dehydration on exam 500cc NSS as above BMP in AM (11) Folate deficiency: Plan: Continue folic acid supplementation. (12) Below-knee amputation of right lower extremity: Plan: June 2021. No acute issues. Follows with Dr. Soto --> has prosthetic in room, hoping to be able to use some as had been in hospital much since he got and wants to get used to using it Plan: Attempted to call daughter Loulou ([phone] - number given by patient) as number in chart does not work; did leave voicemail. Patient has been updating her and is a good historian Bypass planned for Monday Orthopedics alerted -- awaiting response on timing for amputation/level Admission and Anticipated Discharge Date Admission Date: November 10, 2021 Supervising Physician Co-Signing Physician Notes PA Supervision Note: I did not personally see or examine the patient today, but I verified all perez points of BENITO Preston's assessment and plan with the following exceptions/additions: None Subjective Patient evaluated this morning. Doing well. Pain controlled for the most part with Tylenol but states occasional twinge/shooting of pain to his L foot 12/19. Discussed other options, tolerated Oxycodone in past without issue. States less diarrhea, nothing since last night. To alert nursing if worsens to check for cdiff given prior history. Discussed conversation with Dr. Eason and plans for bypass on Monday and ortho to determine amputation after. Mr Chowdhury states he would be agreeable to just doing the AKA if needed but will await final input by orthopedics. He would like to have sister bring in alcohol solution to clean prosthetic to start using. Asked if nursing able to provide 4x4 to assist. Alerted RN to provide when brought in. Denies fevers, chills, chest pain, shortness of breath, abd pain, nausea v omiting or dysuria at this time. Review of Systems Review of Systems: All systems reviewed & are unremarkable except as noted in HPI & below Physical Exam Physical Exam: PHYSICAL EXAM General Appearance: WD/WN elderly male, laying in bed, NAD HEENT: Head normocephalic/atraumatic; Hearing grossly intact; Mucous membranes slightly dry Neck: Supple; Trachea midline; Neg JVD Heart: RRR with no M/G/R Lungs: CTA in all lung fuller bilaterally; Respirations unlabored; Neg accessory muscle use, on room air SpO2 95% Abdomen: +BS throughout, soft, non-tender Extremities: R BKA with small scab noted to the anterior midline of the stump wi thout drainage or erythema, non-tender; reviewed imaging placed by wound care as foot is currently wrapped but also noted R great toe eschar, plantar aspect 5th digit with ulceration, absent pulse (with Doppler only), R heel also with eschar/ulceration, tender to palpation Neurological: Speech clear; Gross motor/sensory function intact; Neg focal neurologic deficits Psychiatric: AOx3, depressed affect Skin: Normal Color; Warm/Dry; other than mentioned above Results & Data Results & Data ([facility]) Vital Signs (Past 12 Hours) Vital Signs Temp Pulse Resp BP Pulse Ox 11/16/21 06:58 36.7 C 75 20 125/72 95 11/15/21 23:41 36.7 C 74 18 159/82 H 97 11/15/21 21:08 36.6 C 64 18 146/78 H 96 Laboratory Results 11/16/21 11/16/21 11/16/21 Range/Units 08:08 08:08 08:08 WBC 10.79 (4.8-10.8) K/uL RBC 4.12 L (4.7-6.1) M/uL Hgb 11.9 L (14.0-18.0) g/dL Hct 35.7 L (42-52) % MCV 86.7 (80-100) fL MCH 28.9 (25-34) pg MCHC 33.3 (32-36) g/dL RDW Std Deviation 44.9 (36.4-46.3) fL RDW Coeff of Chan 14.3 (11.5-14.5) % Plt Count 355 (130-400) K/uL MPV 9.5 (7.4-10.4) fL Immature Gran % (Auto) 0.3 % Neut % (Auto) 68.8 % Lymph % (Auto) 18.8 % [place] % (Auto) 8.2 % Eos % (Auto) 3.7 % Baso % (Auto) 0.2 % Neut # (Auto) 7.43 H (1.4-6.5) K/uL Lymph # (Auto) 2.03 (1.2-3.4) K/uL [place] # (Auto) 0.88 H (0.11-0.59) K/uL Eos # (Auto) 0.40 (0-0.5) K/uL Baso # (Auto) 0.02 (0-0.2) K/uL Immature Gran # (Auto) 0.03 H (0.00-0.02) K/uL APTT 52.0 H* (21.0-31.0) Seconds PTT Ratio 1.9 Sodium 135 L (136-145) mmol/L Potassium 3.8 D (3.5-5.1) mmol/L Chloride 97 L (98-107) mmol/L Carbon Dioxide 30 (21-32) mmol/L Anion Gap 8 (3-11) BUN 8 (6-23) mg/dl Creatinine 0.77 (0.6-1.4) mg/dl Est Cr Clr Drug Dosing 93.8 ml/min Est GFR ( Amer) 111.2 ml/min Est GFR (Non-Af Amer) 95.9 ml/min BUN/Creatinine Ratio 10.4 (10-20) Glucose 145 H (70-99(Fasting)) mg/dl POC Glucose (70-99) mg/dl Calcium 8.7 (8.5-10.1) mg/dl Total Bilirubin 0.6 (0.2-1.0) mg/dl AST 11 L (13-39) U/L ALT 8 (7-52) U/L Alkaline Phosphatase 101 (34-104) U/L Total Protein 7.5 (6.0-8.3) gm/dl Albumin 3.4 (3.4-5.0) gm/dl Globulin 4.1 H (2.5-4.0) gm/dl Albumin/Globulin Ratio 0.8 L (0.9-2) 11/16/21 11/16/21 11/15/21 Range/Units 07:49 00:25 20:06 WBC (4.8-10.8) K/uL RBC (4.7-6.1) M/uL Hgb (14.0-18.0) g/dL Hct (42-52) % MCV (80-100) fL MCH (25-34) pg MCHC (32-36) g/dL RDW Std Deviation (36.4-46.3) fL RDW Coeff of Chan (11.5-14.5) % Plt Count (130-400) K/uL MPV (7.4-10.4) fL Immature Gran % (Auto) % Neut % (Auto) % Lymph % (Auto) % [place] % (Auto) % Eos % (Auto) % Baso % (Auto) % Neut # (Auto) (1.4-6.5) K/uL Lymph # (Auto) (1.2-3.4) K/uL [place] # (Auto) (0.11-0.59) K/uL Eos # (Auto) (0-0.5) K/uL Baso # (Auto) (0-0.2) K/uL Immature Gran # (Auto) (0.00-0.02) K/uL APTT 50.4 H* (21.0-31.0) Seconds PTT Ratio 1.8 Sodium (136-145) mmol/L Potassium (3.5-5.1) mmol/L Chloride (98-107) mmol/L Carbon Dioxide (21-32) mmol/L Anion Gap (3-11) BUN (6-23) mg/dl Creatinine (0.6-1.4) mg/dl Est Cr Clr Drug Dosing ml/min Est GFR ( Amer) ml/min Est GFR (Non-Af Amer) ml/min BUN/Creatinine Ratio (10-20) Glucose (70-99(Fasting)) mg/dl POC Glucose 164 H 143 H (70-99) mg/dl Calcium (8.5-10.1) mg/dl Total Bilirubin (0.2-1.0) mg/dl AST (13-39) U/L ALT (7-52) U/L Alkaline Phosphatase (34-104) U/L Total Protein (6.0-8.3) gm/dl Albumin (3.4-5.0) gm/dl Globulin (2.5-4.0) gm/dl Albumin/Globulin Ratio (0.9-2) 11/15/21 11/15/21 11/15/21 Range/Units 17:42 16:29 12:00 WBC (4.8-10.8) K/uL RBC (4.7-6.1) M/uL Hgb (14.0-18.0) g/dL Hct (42-52) % MCV (80-100) fL MCH (25-34) pg MCHC (32-36) g/dL RDW Std Deviation (36.4-46.3) fL RDW Coeff of Chan (11.5-14.5) % Plt Count (130-400) K/uL MPV (7.4-10.4) fL Immature Gran % (Auto) % Neut % (Auto) % Lymph % (Auto) % [place] % (Auto) % Eos % (Auto) % Baso % (Auto) % Neut # (Auto) (1.4-6.5) K/uL Lymph # (Auto) (1.2-3.4) K/uL [place] # (Auto) (0.11-0.59) K/uL Eos # (Auto) (0-0.5) K/uL Baso # (Auto) (0-0.2) K/uL Immature Gran # (Auto) (0.00-0.02) K/uL APTT 44.7 H (21.0-31.0) Seconds PTT Ratio 1.6 Sodium (136-145) mmol/L Potassium (3.5-5.1) mmol/L Chloride (98-107) mmol/L Carbon Dioxide (21-32) mmol/L Anion Gap (3-11) BUN (6-23) mg/dl Creatinine (0.6-1.4) mg/dl Est Cr Clr Drug Dosing ml/min Est GFR ( Amer) ml/min Est GFR (Non-Af Amer) ml/min BUN/Creatinine Ratio (10-20) Glucose (70-99(Fasting)) mg/dl POC Glucose 133 H 201 H (70-99) mg/dl Calcium (8.5-10.1) mg/dl Total Bilirubin (0.2-1.0) mg/dl AST (13-39) U/L ALT (7-52) U/L Alkaline Phosphatase (34-104) U/L Total Protein (6.0-8.3) gm/dl Albumin (3.4-5.0) gm/dl Globulin (2.5-4.0) gm/dl Albumin/Globulin Ratio (0.9-2) 11/15/21 Range/Units 10:25 WBC (4.8-10.8) K/uL RBC (4.7-6.1) M/uL Hgb (14.0-18.0) g/dL Hct (42-52) % MCV (80-100) fL MCH (25-34) pg MCHC (32-36) g/dL RDW Std Deviation (36.4-46.3) fL RDW Coeff of Chan (11.5-14.5) % Plt Count (130-400) K/uL MPV (7.4-10.4) fL Immature Gran % (Auto) % Neut % (Auto) % Lymph % (Auto) % [place] % (Auto) % Eos % (Auto) % Baso % (Auto) % Neut # (Auto) (1.4-6.5) K/uL Lymph # (Auto) (1.2-3.4) K/uL [place] # (Auto) (0.11-0.59) K/uL Eos # (Auto) (0-0.5) K/uL Baso # (Auto) (0-0.2) K/uL Immature Gran # (Auto) (0.00-0.02) K/uL APTT (21.0-31.0) Seconds PTT Ratio Sodium (136-145) mmol/L Potassium (3.5-5.1) mmol/L Chloride (98-107) mmol/L Carbon Dioxide (21-32) mmol/L Anion Gap (3-11) BUN (6-23) mg/dl Creatinine (0.6-1.4) mg/dl Est Cr Clr Drug Dosing ml/min Est GFR ( Amer) ml/min Est GFR (Non-Af Amer) ml/min BUN/Creatinine Ratio (10-20) Glucose (70-99(Fasting)) mg/dl POC Glucose 172 H (70-99) mg/dl Calcium (8.5-10.1) mg/dl Total Bilirubin (0.2-1.0) mg/dl AST (13-39) U/L ALT (7-52) U/L Alkaline Phosphatase (34-104) U/L Total Protein (6.0-8.3) gm/dl Albumin (3.4-5.0) gm/dl Globulin (2.5-4.0) gm/dl Albumin/Globulin Ratio (0.9-2) PG Care Time/CCT Total # of Minutes Spent Total Time Spent with Patient: Total time spent is greater than 50% in coordination of care (as documented) at patient's floor/unit and/or counseling patient: Coding Level of Care Code 13291 Subseq Hosp Care Lvl 2 Diagnoses Diabetic ulcer of left foot E11.621; L97.529 Clostridium difficile colitis A04.72 Diabetes mellitus type 1 E10.9 CAD (coronary artery disease) I25.10 Associated angina: without angina Coronary Disease-Associated Artery/Lesion type: [place] artery [place] vs. transplanted heart: [place] heart PVD (peripheral vascular disease) I73.9 Hypertension I10 Hypertension type: unspecified Dyslipidemia E78.5 Hypothyroidism E03.9 Hypothyroidism type: unspecified Diabetic nephropathy associated with type 1 diabetes mellitus E10.21 Hyponatremia E87.1 Folate deficiency E53.8 Below-knee amputation of right lower extremity S88.111A (1) CAD (coronary artery disease) Associated angina: without angina Coronary Disease-Associated Artery/Lesion type: [place] artery [place] vs. transplanted heart: [place] heart Qualified Code(s): I25.10 - Atherosclerotic heart disease of [place] coronary artery without angina pectoris (2) Hypothyroidism Hypothyroidism type: unspecified Qualified Code(s): E03.9 - Hypothyroidism, unspecified (3) Hypertension Hypertension type: unspecified Qualified Code(s): I10 - Essential (primary) hypertension
[2021-11-16 08:36] LABS: Basophils # (auto) 0.02 K/uL (0-0.2); Basophils % (auto) 0.2 %; Eosinophils % (auto) 3.7 %; Hematocrit (blood only) 35.7 % (42-52); Hemoglobin 11.9 g/dL (14.0-18.0); Immature Granulocytes # (auto) 0.03 K/uL (0.00-0.02); Immature Granulocytes % (auto) 0.3 %; Lymphocytes # (auto) 2.03 K/uL (1.2-3.4); Lymphocytes % (auto) 18.8 %; Mean Corpuscular Hemoglobin 28.9 pg (25-34); Mean Corpuscular Hgb Conc 33.3 g/dL (32-36); Mean Corpuscular Volume 86.7 fL (80-100); Mean Platelet Volume 9.5 fL (7.4-10.4); Monocytes # (auto) 0.88 K/uL (0.11-0.59); Monocytes % (auto) 8.2 %; Neutrophils # (auto) 7.43 K/uL (1.4-6.5); Neutrophils % (auto) 68.8 %; Platelet Count 355 K/uL (130-400); RDW Coefficient of Variation 14.3 % (11.5-14.5); RDW Standard Deviation 44.9 fL (36.4-46.3); Red Blood Count 4.12 M/uL (4.7-6.1); White Blood Count 10.79 K/uL (4.8-10.8)
[2021-11-16] MEDS: INSULIN ASPART PER UNIT SC SCH ×4 (08:42→20:19)
[2021-11-16] MEDS: FOLIC ACID 1 MG TAB PO SCH (08:43)
[2021-11-16] MEDS: PANTOprazole 40 MG TAB PO SCH (08:44)
[2021-11-16] MEDS: CLOPIDOGREL BISULFATE 75 MG TAB PO SCH (08:44)
[2021-11-16] MEDS: ASPIRIN 81 MG ECTAB PO SCH (08:44)
[2021-11-16] MEDS: ADVANCED PROBIOTIC 1250 MG CAPSULE PO SCH (08:44)
[2021-11-16] MEDS: CALCITRIOL 0.25 MCG CAPSULE PO SCH (08:45)
[2021-11-16] MEDS: FERROUS SULFATE 325 MG TAB PO SCH ×2 (08:45→20:42)
[2021-11-16] MEDS: METOPROLOL TARTRATE 25 MG TAB PO SCH ×2 (08:45→20:42)
[2021-11-16] MEDS: INSULIN GLARGINE SOLOSTAR 100 UNITS/ML 3 ML PEN SC SCH (08:46)
[2021-11-16 09:10] LABS: Partial Thromboplastin Ratio 1.9
[2021-11-16 09:19] LABS: Albumin Globulin Ratio 0.8 (0.9-2); Albumin Level 3.4 gm/dl (3.4-5.0); BUN Creatinine Ratio 10.4 (10-20); Bilirubin,Total 0.6 mg/dl (0.2-1.0); Calcium 8.7 mg/dl (8.5-10.1); Creatinine Clr Calc Pharmacy 93.8 ml/min; Est GFR (African American) 111.2 ml/min; Est GFR (Non-African American) 95.9 ml/min; Globulin 4.1 gm/dl (2.5-4.0); Potassium 3.8 mmol/L (3.5-5.1); Total Protein 7.5 gm/dl (6.0-8.3)
[2021-11-16] MEDS ORDERED: SODIUM CHLORIDE 0.9% 500 ML IV SCH (09:45)
[2021-11-16] MEDS: HEPARIN SODIUM/DEXTROSE 25,000 UNITS/500 ML BAG IV SCH (12:40)
--- NOTE | 2021-11-16 13:30 | Pharmacy Report ---
Pharmacy Glycemic Short Note 2 - Date of Service November 16, 2021 - Glycemic Short BSG Results (Last 24 hours): 11/15/21 11/15/21 11/16/21 16:29 20:06 07:49 Glucose POC Glucose 133 H 143 H 164 H 11/16/21 11/16/21 11/16/21 08:08 11:40 11:42 Glucose 145 H POC Glucose 312 H* 318 H* OUTPATIENT ANTIDIABETIC REGIMEN: * Novolog insulin pump: ~53 units/day * Basal: 1.65 units/hr (39.6 units/day) * Correction Factor: 30 mg/dL/unit * Nutritional / Prandial insulin per carb ratio of 1 unit per 6 grams CHO consumed * HbA1c: 8.0% (11/11/21) ASSESSMENT: 11/16/21: * Mr Chowdhury was NPO yesterday for vascular intervention. He has resumed his diet post-op. Pt will likely become NPO again night for procedure Monday. Will follow closely. * Lunch BSG tends to be elevated, so will tighten carb coverage with breakfast only. * Lantus dose increased slightly for tomorrow, as fasting BSG above goal. 11/14 * Patient's BSGs yesterday were [phone] and overnight were 73-167 mg/dL. Fasting today is 222 mg/dL. * Elevated BSG at dinnertime secondary to pump transition plus patient's own bolus at lunchtime. * Will give Lantus 38 units this morning to allow for some Lantus overlap and to decrease BSGs further. * Novolog as per previous as it does appear to have corrected patient appropriately. 11/13 * Patient's BSGs yesterday were [phone]. Patient received an 8 unit bolus yesterday evening for BSG of 461. * Patient corrected himself sporadically overnight. * Fasting today was 263 mg/dL. Lunch BSG was 326. * Nurse discussed with patient that due to high BSGs, it was prudent to remove insulin pump and manage basal/bolus. He is comfortable with this. Already gave lunch coverage. * Lantus 38 units x 1 and remove insulin pump 2 hours after this given. * Novolog based upon previous hospitalization. Background * Mr Chowdhury is a 66yo type 1 diabetic male, admitted with worsening DM foot ulcer/infection. * On admission last night, insulin pump was to be held and pt was initiated on SQ basal/bolus insulin. * BSGs have been on the low side today. When CDE visited pt today, he was found to still have his insulin pump running. SQ insulin orders stopped. * Will attempt to allow pt to manage himself with his insulin pump as long as BSGs are appropriate. * If BSGs become unstable, will convert back to SQ insulin. PLAN FOR INPATIENT GLYCEMIC CONTROL: * Basal insulin - * Lantus 40 units SQ daily * Bolus insulin - * NovoLog per scale ACHS or Q6hrs while NPO * Goal Range: Low 110 mg/dL - High 140 mg/dL * Correction Factor: 25 mg/dL/unit * Nutritional / Prandial insulin per carb ratio of 1 unit per 4 grams CHO consumed with breakfast, 1 unit per 5 grams CHO consumed with lunch/dinner/HS
[2021-11-16] MEDS: oxyCODONE HCL IR 5 MG TAB (IMMEDIATE RELEASE) PO PRN (14:40)
--- NOTE | 2021-11-16 15:50 | Orthopedic Progress Note ---
Date of Service November 16, 2021 Assessment & Plan (1) Diabetic ulcer of left foot: Plan: Changed dressings left foot. Dry gangrene on left great toe, 3rd toe and base of 4th toe. Nontender to palpation at toes, no palpable pulses, able to do active ROM of left leg and ankle. Left heel with 3 necrotic areas, no active drainage, tender to palpation. Applied betadine to wounds per patient request and redressed wounds. Aquacel between toes. Discussed with patient that no plan to be determined until Dr. Soto back next Monday. Have OR time on hold for Monday in case surgical intervention is warranted. Surgery would consist of either a Transmetatarsal amputation vs. BKA or waiting it out a few more weeks to see what response he gets with wound healing, especially at the heel with the upcoming bypass. He understands and agrees with the plan. Dr. Soto and I will update patient and the OR on Monday once a plan is determined. In the meantime continue offloading the heal, dressing changes PRN, waffle boots, WBAT with post op shoe on left foot when out of bed. Call our office with any questions or concerns. [phone]. Admission and Anticipated Discharge Date Admission Date: November 10, 2021 Subjective Patient resting in bed, feeling fine. No complaints of pain today. States that occasionally gets a twinge of pain. Tylenol helping to control pain. Results & Data ([facility]) Vital Signs (Past 12 Hours) Vital Signs Temp Pulse Resp BP Pulse Ox 11/16/21 06:58 36.7 C 75 20 125/72 95
[2021-11-16] MEDS: ATORVASTATIN 40 MG TAB PO SCH (20:42)
[2021-11-16] MEDS: POTASSIUM CHLORIDE CRTAB 20 MEQ TABCR PO SCH (20:43)
[2021-11-17] MEDS: oxyCODONE HCL IR 5 MG TAB (IMMEDIATE RELEASE) PO PRN (01:31)
[2021-11-17] MEDS: LEVOTHYROXINE SODIUM 175 MCG TABLET PO SCH (05:26)
[2021-11-17 06:57] LABS: Hematocrit (blood only) 35.7 % (42-52); Hemoglobin 11.8 g/dL (14.0-18.0); Mean Corpuscular Hemoglobin 28.6 pg (25-34); Mean Corpuscular Hgb Conc 33.1 g/dL (32-36); Mean Corpuscular Volume 86.4 fL (80-100); Mean Platelet Volume 9.6 fL (7.4-10.4); Platelet Count 358 K/uL (130-400); RDW Coefficient of Variation 14.3 % (11.5-14.5); Red Blood Count 4.13 M/uL (4.7-6.1); White Blood Count 10.81 K/uL (4.8-10.8)
[2021-11-17 07:22] LABS: BUN Creatinine Ratio 12.2 (10-20); Calcium 8.6 mg/dl (8.5-10.1); Creatinine Clr Calc Pharmacy 97.6 ml/min; Est GFR (Non-African American) 97.5 ml/min; Magnesium 1.8 mg/dl (1.7-2.4); Potassium 4.1 mmol/L (3.5-5.1)
[2021-11-17] MEDS: HEPARIN SODIUM/DEXTROSE 25,000 UNITS/500 ML BAG IV SCH (07:34)
--- NOTE | 2021-11-17 07:39 | Hospitalist Progress Note ---
Date of Service November 17, 2021 Assessment & Plan (1) Diabetic ulcer of left foot: Plan: LLE erythema and edema that goes slightly above malleolus with several skin fissures, necrotic ulcerated wound on 1.) medial aspect of L great toe with eschar, 2.) medial aspect of third toe with some drainage and eschar, 3.) on upper lateral border of left sole with eschar, and 4.) on heel of left foot with necrotic tissue. Pulses intact, extremity without pallor or decreased temperature, pt has diminished sensation at baseline, but has some sensation along medial and lateral aspect of foot. Minimal pain. XR - soft tissue swelling with no acute bony abnormality identified. XR Tib/fib with old healed fractures of the distal tibia and fibula with post-traumatic deformity present; OA Was on Dapto/Zosyn--> remains on Zosyn (no MRSA cx hx but had grown pseudomonas in past) Wound Cx - Pseudomonas and S. Aureus (MSSA) Wound RN consulted Heparin gtt for U/S w/ complete occlusion of the [place] superficial femoral and popliteal arteries; bypass graft extending from superficial femoral artery to the posterior tibial artery with near complete to complete occlusion below the knee; no flow shown within the peroneal artery; anterior and posterior tibial arteries appear patent Orthopedics, vascular on consult * POD #2 s/p Left Lower Extremity Angiogram, ultrasound localization of right femoral artery, mechanical closure of right femoral artery moderate sedation [id number](Right) - Floyd Eason MD. EBL 15cc. * --> Anterior tibial artery appeared to provide the dominant flow to the foot * Per discussion with Dr Eason, plans for femoral-anterior tibial bypass on Monday (will need to be NPO after night) Orthopedics to plan for intervention/amputation next week, Monday/Monday WBC 10.8k today but remains afebrile Consideration to test for cdiff if continued diarrhea -- order placed given hx Given 500cc nSS on 11/16 for mild dehydration (diarrhea days prior) --> no further diarrhea reported, no additional IVF at this time Follow labs in AM (2) Clostridium difficile colitis: Plan: H/O -- previously on slow long taper of po Vanc last admission Did endorse taking MOM a couple days ago as he occ. has constipation. Added probiotic Having liquid stool on 11/12 that is dark but is on BID Fe supplementation Recent colonoscopy without abnormality; no abdominal pain; no fever; H&H stable C. diff negative Less loose stools (none since last nigth reported), monitor for increased di arrhea, repeat testing if needed On PO KCl 20meq BID supplementation for low K. Mag wnl on check (3) Diabetes mellitus type 1: Plan: Uncontrolled, has insulin pump outside of here Having high glucose -- did require insulin gtt on last admission due to high sugars -- asymptomatic with it Pharmacy consult placed for glycemic management. Heart healthy + CC diet. Highs yesterday, alerted pharmacy --> no adjustments made due to lows nights previously. BSGs acceptable for today Continue to monitor (4) CAD (coronary artery disease): Plan: S/P CABG x 1 (2015). No chest pain today. Continue statin, DAPT w/ ASA and Plavix, and metoprolol. Discussed that all three can remain for vascular procedure -- will need to talk with ortho in regards to anti-platelets for ortho surgery -- Would like to avoid triple therapy (5) PVD (peripheral vascular disease): Plan: -B/L iliac artery stents (2014), R common/external iliac (2017), R common femoral endarterectomy (11/2018) with bovine patch. Left femoral to PT composite bypass graft (06/2020). as above, s/p angio and plans for bypass on Monday with Dr Eason (6) Hypertension: Plan: Patient initially hypotensive in ED and responded to fluid bolus - BPs acceptable Continue Metoprolol 12.5 mg BID (7) Dyslipidemia: Plan: Continue statin. (8) Hypothyroidism: Plan: Continue levothyroxine. (9) Diabetic nephropathy associated with type 1 diabetes mellitus: Plan: Documented hx of CKD stage 3, Cr and BUN appear wnl today. Continue daily iron, calcitrol, and potassium supplement. Renally dose all medications, avoid nephrotoxic agents. Cr 0.74 , stable (10) Hyponatremia: Plan: Na 135, appears to have some mild dehydration on exam Asymptomatic Avoiding further IVF for now, monitor BMP in AM (11) Folate deficiency: Plan: Continue folic acid supplementation. (12) Below-knee amputation of right lower extremity: Plan: June 2021. No acute issues. Follows with Dr. Soto --> has prosthetic in room, hoping to be able to use some as had been in hospital much since he got and wants to get used to using it Daughter Loulou ([phone] - number given by patient). Patient has been updating her and is a good historian Plan: Bypass Monday, amputation tentatively for next Monday with Dr Soto Admission and Anticipated Discharge Date Admission Date: November 10, 2021 Supervising Physician Co-Signing Physician Notes PA Supervision Note: I did not personally see or examine the patient today, but I verified all perez points of BENITO Preston's assessment and plan with the following exceptions/additions: None Subjective Patient with pain adequately controlled with oral agents, has take 2 doses of oxycodone. Primary source of pain is ulceration to his heel. Discussed with orthopedics and renee to do bypass monday and Dr Soto to eval for level of amputation on Monday. Per discussion with ortho PA, possible debridement of heel and transmet amputation to salvage more mobility given R leg amputation. Patient denies fever, chills, chest pain, shortness of breath, abd pain, nausea, vomiting. BM 2 days ago in AM but passing gas. Will given senna x 1. Not scheduling bowel regimen given hx of cdiff but will give senna x 1. Ok'd with patient. Questions/concerns addressed at this time. Review of Systems Review of Systems: All systems reviewed & are unremarkable except as noted in HPI & below Physical Exam Physical Exam: General : WD/WN chronically ill appearing male, laying in bed, NAD HEENT: Head normocephalic/atraumatic; hearing intact, mmm Neck: trachea midline without deviation Resp: CTAB, no w/c/r, on room air SpO2 98% CV: RRR no m/r/g, no edema GI: +BS, soft, non-tender, no guarding : no jerez Psych: AOx3, calm and cooperative MSK/Skin: R BKA with small scab to anterior midline, no abscess/fluctuance/drainage or erythema, non-tender. L foot with gangrenous great toe, ulceration to plantar aspect 5th digit, R heel also with eschar/ulceration and tenderness to palpation Neuro: speech clear/appropriate, no focal deficits, answering questions appropriately Results & Data Results & Data ([facility]) Vital Signs (Past 12 Hours) Vital Signs Temp Pulse Resp BP BP Pulse Ox 11/17/21 06:59 36.7 C 75 18 164/76 H 98 11/16/21 22:00 37 C 77 20 134/75 96 11/16/21 20:40 71 118/68 Laboratory Results 11/17/21 11/17/21 11/17/21 Range/Units 06:36 06:36 06:36 WBC (4.8-10.8) K/uL RBC (4.7-6.1) M/uL Hgb (14.0-18.0) g/dL Hct (42-52) % MCV (80-100) fL MCH (25-34) pg MCHC (32-36) g/dL RDW Std Deviation (36.4-46.3) fL RDW Coeff of Chan (11.5-14.5) % Plt Count (130-400) K/uL MPV (7.4-10.4) fL Immature Gran % (Auto) % Neut % (Auto) % Lymph % (Auto) % [place] % (Auto) % Eos % (Auto) % Baso % (Auto) % Neut # (Auto) (1.4-6.5) K/uL Lymph # (Auto) (1.2-3.4) K/uL [place] # (Auto) (0.11-0.59) K/uL Eos # (Auto) (0-0.5) K/uL Baso # (Auto) (0-0.2) K/uL Immature Gran # (Auto) (0.00-0.02) K/uL APTT Pending (21.0-31.0) Seconds PTT Ratio Pending Sodium 135 L (136-145) mmol/L Potassium 4.1 (3.5-5.1) mmol/L Chloride 100 (98-107) mmol/L Carbon Dioxide 31 (21-32) mmol/L Anion Gap 4 (3-11) BUN 9 (6-23) mg/dl Creatinine 0.74 (0.6-1.4) mg/dl Est Cr Clr Drug Dosing 97.6 ml/min Est GFR ( Amer) 113.0 ml/min Est GFR (Non-Af Amer) 97.5 ml/min BUN/Creatinine Ratio 12.2 (10-20) Glucose 172 H (70-99(Fasting)) mg/dl POC Glucose (70-99) mg/dl Calcium 8.6 (8.5-10.1) mg/dl Magnesium 1.8 (1.7-2.4) mg/dl Total Bilirubin (0.2-1.0) mg/dl AST (13-39) U/L ALT (7-52) U/L Alkaline Phosphatase (34-104) U/L Total Protein (6.0-8.3) gm/dl Albumin (3.4-5.0) gm/dl Globulin (2.5-4.0) gm/dl Albumin/Globulin Ratio (0.9-2) TSH Pending 11/17/21 11/16/21 11/16/21 Range/Units 06:36 20:02 16:39 WBC 10.81 H (4.8-10.8) K/uL RBC 4.13 L (4.7-6.1) M/uL Hgb 11.8 L (14.0-18.0) g/dL Hct 35.7 L (42-52) % MCV 86.4 (80-100) fL MCH 28.6 (25-34) pg MCHC 33.1 (32-36) g/dL RDW Std Deviation 45.0 (36.4-46.3) fL RDW Coeff of Chan 14.3 (11.5-14.5) % Plt Count 358 (130-400) K/uL MPV 9.6 (7.4-10.4) fL Immature Gran % (Auto) % Neut % (Auto) % Lymph % (Auto) % [place] % (Auto) % Eos % (Auto) % Baso % (Auto) % Neut # (Auto) (1.4-6.5) K/uL Lymph # (Auto) (1.2-3.4) K/uL [place] # (Auto) (0.11-0.59) K/uL Eos # (Auto) (0-0.5) K/uL Baso # (Auto) (0-0.2) K/uL Immature Gran # (Auto) (0.00-0.02) K/uL APTT (21.0-31.0) Seconds PTT Ratio Sodium (136-145) mmol/L Potassium (3.5-5.1) mmol/L Chloride (98-107) mmol/L Carbon Dioxide (21-32) mmol/L Anion Gap (3-11) BUN (6-23) mg/dl Creatinine (0.6-1.4) mg/dl Est Cr Clr Drug Dosing ml/min Est GFR ( Amer) ml/min Est GFR (Non-Af Amer) ml/min BUN/Creatinine Ratio (10-20) Glucose (70-99(Fasting)) mg/dl POC Glucose 123 H 116 H (70-99) mg/dl Calcium (8.5-10.1) mg/dl Magnesium (1.7-2.4) mg/dl Total Bilirubin (0.2-1.0) mg/dl AST (13-39) U/L ALT (7-52) U/L Alkaline Phosphatase (34-104) U/L Total Protein (6.0-8.3) gm/dl Albumin (3.4-5.0) gm/dl Globulin (2.5-4.0) gm/dl Albumin/Globulin Ratio (0.9-2) TSH 11/16/21 11/16/21 11/16/21 Range/Units 11:42 11:40 08:08 WBC (4.8-10.8) K/uL RBC (4.7-6.1) M/uL Hgb (14.0-18.0) g/dL Hct (42-52) % MCV (80-100) fL MCH (25-34) pg MCHC (32-36) g/dL RDW Std Deviation (36.4-46.3) fL RDW Coeff of Chan (11.5-14.5) % Plt Count (130-400) K/uL MPV (7.4-10.4) fL Immature Gran % (Auto) % Neut % (Auto) % Lymph % (Auto) % [place] % (Auto) % Eos % (Auto) % Baso % (Auto) % Neut # (Auto) (1.4-6.5) K/uL Lymph # (Auto) (1.2-3.4) K/uL [place] # (Auto) (0.11-0.59) K/uL Eos # (Auto) (0-0.5) K/uL Baso # (Auto) (0-0.2) K/uL Immature Gran # (Auto) (0.00-0.02) K/uL APTT (21.0-31.0) Seconds PTT Ratio Sodium (136-145) mmol/L Potassium (3.5-5.1) mmol/L Chloride (98-107) mmol/L Carbon Dioxide (21-32) mmol/L Anion Gap (3-11) BUN (6-23) mg/dl Creatinine (0.6-1.4) mg/dl Est Cr Clr Drug Dosing ml/min Est GFR ( Amer) ml/min Est GFR (Non-Af Amer) ml/min BUN/Creatinine Ratio (10-20) Glucose (70-99(Fasting)) mg/dl POC Glucose 318 H* 312 H* (70-99) mg/dl Calcium (8.5-10.1) mg/dl Magnesium 1.9 (1.7-2.4) mg/dl Total Bilirubin (0.2-1.0) mg/dl AST (13-39) U/L ALT (7-52) U/L Alkaline Phosphatase (34-104) U/L Total Protein (6.0-8.3) gm/dl Albumin (3.4-5.0) gm/dl Globulin (2.5-4.0) gm/dl Albumin/Globulin Ratio (0.9-2) TSH 11/16/21 11/16/21 11/16/21 Range/Units 08:08 08:08 08:08 WBC 10.79 (4.8-10.8) K/uL RBC 4.12 L (4.7-6.1) M/uL Hgb 11.9 L (14.0-18.0) g/dL Hct 35.7 L (42-52) % MCV 86.7 (80-100) fL MCH 28.9 (25-34) pg MCHC 33.3 (32-36) g/dL RDW Std Deviation 44.9 (36.4-46.3) fL RDW Coeff of Chan 14.3 (11.5-14.5) % Plt Count 355 (130-400) K/uL MPV 9.5 (7.4-10.4) fL Immature Gran % (Auto) 0.3 % Neut % (Auto) 68.8 % Lymph % (Auto) 18.8 % [place] % (Auto) 8.2 % Eos % (Auto) 3.7 % Baso % (Auto) 0.2 % Neut # (Auto) 7.43 H (1.4-6.5) K/uL Lymph # (Auto) 2.03 (1.2-3.4) K/uL [place] # (Auto) 0.88 H (0.11-0.59) K/uL Eos # (Auto) 0.40 (0-0.5) K/uL Baso # (Auto) 0.02 (0-0.2) K/uL Immature Gran # (Auto) 0.03 H (0.00-0.02) K/uL APTT 52.0 H* (21.0-31.0) Seconds PTT Ratio 1.9 Sodium 135 L (136-145) mmol/L Potassium 3.8 D (3.5-5.1) mmol/L Chloride 97 L (98-107) mmol/L Carbon Dioxide 30 (21-32) mmol/L Anion Gap 8 (3-11) BUN 8 (6-23) mg/dl Creatinine 0.77 (0.6-1.4) mg/dl Est Cr Clr Drug Dosing 93.8 ml/min Est GFR ( Amer) 111.2 ml/min Est GFR (Non-Af Amer) 95.9 ml/min BUN/Creatinine Ratio 10.4 (10-20) Glucose 145 H (70-99(Fasting)) mg/dl POC Glucose (70-99) mg/dl Calcium 8.7 (8.5-10.1) mg/dl Magnesium (1.7-2.4) mg/dl Total Bilirubin 0.6 (0.2-1.0) mg/dl AST 11 L (13-39) U/L ALT 8 (7-52) U/L Alkaline Phosphatase 101 (34-104) U/L Total Protein 7.5 (6.0-8.3) gm/dl Albumin 3.4 (3.4-5.0) gm/dl Globulin 4.1 H (2.5-4.0) gm/dl Albumin/Globulin Ratio 0.8 L (0.9-2) TSH 11/16/21 Range/Units 07:49 WBC (4.8-10.8) K/uL RBC (4.7-6.1) M/uL Hgb (14.0-18.0) g/dL Hct (42-52) % MCV (80-100) fL MCH (25-34) pg MCHC (32-36) g/dL RDW Std Deviation (36.4-46.3) fL RDW Coeff of Chan (11.5-14.5) % Plt Count (130-400) K/uL MPV (7.4-10.4) fL Immature Gran % (Auto) % Neut % (Auto) % Lymph % (Auto) % [place] % (Auto) % Eos % (Auto) % Baso % (Auto) % Neut # (Auto) (1.4-6.5) K/uL Lymph # (Auto) (1.2-3.4) K/uL [place] # (Auto) (0.11-0.59) K/uL Eos # (Auto) (0-0.5) K/uL Baso # (Auto) (0-0.2) K/uL Immature Gran # (Auto) (0.00-0.02) K/uL APTT (21.0-31.0) Seconds PTT Ratio Sodium (136-145) mmol/L Potassium (3.5-5.1) mmol/L Chloride (98-107) mmol/L Carbon Dioxide (21-32) mmol/L Anion Gap (3-11) BUN (6-23) mg/dl Creatinine (0.6-1.4) mg/dl Est Cr Clr Drug Dosing ml/min Est GFR ( Amer) ml/min Est GFR (Non-Af Amer) ml/min BUN/Creatinine Ratio (10-20) Glucose (70-99(Fasting)) mg/dl POC Glucose 164 H (70-99) mg/dl Calcium (8.5-10.1) mg/dl Magnesium (1.7-2.4) mg/dl Total Bilirubin (0.2-1.0) mg/dl AST (13-39) U/L ALT (7-52) U/L Alkaline Phosphatase (34-104) U/L Total Protein (6.0-8.3) gm/dl Albumin (3.4-5.0) gm/dl Globulin (2.5-4.0) gm/dl Albumin/Globulin Ratio (0.9-2) TSH PG Care Time/CCT Total # of Minutes Spent Total Time Spent with Patient: Total time spent is greater than 50% in coordination of care (as documented) at patient's floor/unit and/or counseling patient: Coding Level of Care Code 26804 Subseq Hosp Care Lvl 2 Diagnoses Diabetic ulcer of left foot E11.621; L97.529 Clostridium difficile colitis A04.72 Diabetes mellitus type 1 E10.9 CAD (coronary artery disease) I25.10 Associated angina: without angina Coronary Disease-Associated Artery/Lesion type: [place] artery [place] vs. transplanted heart: [place] heart PVD (peripheral vascular disease) I73.9 Hypertension I10 Hypertension type: unspecified Dyslipidemia E78.5 Hypothyroidism E03.9 Hypothyroidism type: unspecified Diabetic nephropathy associated with type 1 diabetes mellitus E10.21 Hyponatremia E87.1 Folate deficiency E53.8 Below-knee amputation of right lower extremity S88.111A (1) CAD (coronary artery disease) Associated angina: without angina Coronary Disease-Associated Artery/Lesion type: [place] artery [place] vs. transplanted heart: [place] heart Qualified Code(s): I25.10 - Atherosclerotic heart disease of [place] coronary artery without angina pectoris (2) Hypothyroidism Hypothyroidism type: unspecified Qualified Code(s): E03.9 - Hypothyroidism, u nspecified (3) Hypertension Hypertension type: unspecified Qualified Code(s): I10 - Essential (primary) hypertension
[2021-11-17 07:51] LABS: Partial Thromboplastin Time 54.1 Seconds (21.0-31.0)
[2021-11-17] MEDS: INSULIN ASPART PER UNIT SC SCH ×4 (08:01→23:01)
[2021-11-17] MEDS: FERROUS SULFATE 325 MG TAB PO SCH ×2 (08:02→21:06)
[2021-11-17] MEDS: PIPERACILLIN/TAZOBACTAM 3.375 GM in DEXTROSE 5% 100 ML IV SCH ×2 (08:02→16:46)
[2021-11-17] MEDS: METOPROLOL TARTRATE 25 MG TAB PO SCH ×2 (08:02→21:05)
[2021-11-17] MEDS: POTASSIUM CHLORIDE CRTAB 20 MEQ TABCR PO SCH ×2 (08:03→21:05)
[2021-11-17] MEDS: ASPIRIN 81 MG ECTAB PO SCH (08:03)
[2021-11-17] MEDS: PANTOprazole 40 MG TAB PO SCH (08:03)
[2021-11-17] MEDS: CLOPIDOGREL BISULFATE 75 MG TAB PO SCH (08:03)
[2021-11-17] MEDS: ADVANCED PROBIOTIC 1250 MG CAPSULE PO SCH (08:03)
[2021-11-17] MEDS: CALCITRIOL 0.25 MCG CAPSULE PO SCH (08:03)
[2021-11-17] MEDS: FOLIC ACID 1 MG TAB PO SCH (08:04)
[2021-11-17] MEDS ORDERED: INSULIN GLARGINE SOLOSTAR 100 UNITS/ML 3 ML PEN SC SCH (09:00)
[2021-11-17] MEDS ORDERED: DOCUSATE SODIUM/SENNA 50/8.6MG TAB PO ONE (11:34)
[2021-11-17] MEDS: CARBOHYDRATES FOR HYPOGLYCEMIA PO PRN (16:45)
[2021-11-17] MEDS: ATORVASTATIN 40 MG TAB PO SCH (21:06)
[2021-11-18] MEDS: PIPERACILLIN/TAZOBACTAM 3.375 GM in DEXTROSE 5% 100 ML IV SCH ×4 (00:18→23:55)
[2021-11-18] MEDS: HEPARIN SODIUM/DEXTROSE 25,000 UNITS/500 ML BAG IV SCH ×2 (02:01→20:31)
[2021-11-18] MEDS: LEVOTHYROXINE SODIUM 175 MCG TABLET PO SCH (05:52)
[2021-11-18 07:09] LABS: Basophils # (auto) 0.05 K/uL (0-0.2); Basophils % (auto) 0.4 %; Eosinophils # (auto) 0.66 K/uL (0-0.5); Hematocrit (blood only) 36.2 % (42-52); Hemoglobin 11.8 g/dL (14.0-18.0); Immature Granulocytes # (auto) 0.05 K/uL (0.00-0.02); Immature Granulocytes % (auto) 0.4 %; Lymphocytes % (auto) 18.9 %; Mean Corpuscular Hemoglobin 28.4 pg (25-34); Mean Corpuscular Hgb Conc 32.6 g/dL (32-36); Mean Corpuscular Volume 87.2 fL (80-100); Mean Platelet Volume 9.8 fL (7.4-10.4); Monocytes # (auto) 1.18 K/uL (0.11-0.59); Monocytes % (auto) 8.9 %; Neutrophils # (auto) 8.81 K/uL (1.4-6.5); Neutrophils % (auto) 66.4 %; Platelet Count 370 K/uL (130-400); RDW Coefficient of Variation 14.5 % (11.5-14.5); RDW Standard Deviation 45.7 fL (36.4-46.3); Red Blood Count 4.15 M/uL (4.7-6.1); White Blood Count 13.25 K/uL (4.8-10.8)
[2021-11-18] MEDS ORDERED: PIPERACILL/TAZOBAC CONSULT ACTIVE PRN (07:27)
--- NOTE | 2021-11-18 07:33 | Hospitalist Progress Note ---
Date of Service November 18, 2021 Assessment & Plan (1) Diabetic ulcer of left foot: Plan: LLE erythema and edema that goes slightly above malleolus with several skin fissures, necrotic ulcerated wound on 1.) medial aspect of L great toe with eschar, 2.) medial aspect of third toe with some drainage and eschar, 3.) on upper lateral border of left sole with eschar, and 4.) on heel of left foot with necrotic tissue. Pulses intact, extremity without pallor or decreased temperature, pt has diminished sensation at baseline, but has some sensation along medial and lateral aspect of foot. Minimal pain. XR - soft tissue swelling with no acute bony abnormality identified. XR Tib/fib with old healed fractures of the distal tibia and fibula with post-traumatic deformity present; OA Heparin gtt for U/S w/ complete occlusion of the torres martinez superficial femoral and popliteal arteries; bypass graft extending from superficial femoral artery to the posterior tibial artery with near complete to complete occlusion below the knee; no flow shown within the peroneal artery; anterior and posterior tibial arteries appear patent Vascular on consult * s/p Left Lower Extremity Angiogram, ultrasound localization of right femoral artery, mechanical closure of right femoral artery moderate sedation 1050- 1143(Right) - Floyd Eason MD on 11/15. EBL 15cc. * NPO after midnight for L fem-anterior tibial bypass Orthopedics on consult * Plans for amputation early next week, will re-eval on Monday when Dr Soto back in town and tentatively planning for surgery on Monday Wound Cx - Pseudomonas and S. 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 Left femoral to PT composite bypass graft (06/2020). as above, s/p angio and plans for bypass on Monday with Dr Eason (3) Diabetes mellitus type 1: Plan: Uncontrolled, has insulin pump outside of here and typically when off usual pump does have fluctuations BSGs low 11/14, pharmacy notified, then BSGs elevated 11/16, no changes due to prior lows and ended up having some hypoglycemia afternoon 11/17 which was asymptomatic --> BSgs 129-282 today and pharmacy to continue to manage insulin (4) CAD (coronary artery disease): Plan: S/P CABG x 1 (2015). No chest pain today. Continue DAPT w/ ASA and Plavix, and metoprolol. Discussed that all three can remain for vascular procedure -- will need to talk with ortho in regards to anti-platelets for ortho surgery -- Would like to avoid triple therapy Hold statin for today given Dapto as above Bypass planned for tomorrow as outlined #1 (5) Clostridium difficile colitis: Plan: H/O -- previously on slow long taper of po Vanc last admission Has occassional constipation On probiotic while on abx therapy --> had liquid stool earlier in stay, black, but on Fe BID Recent c-scope w/o abnormality cdiff negative earlier in stay, retest if occurs again (6) Hypertension: Plan: Patient initially hypotensive in ED and responded to fluid bolus - BPs acceptable Continue Metoprolol 12.5 mg BID (7) Dyslipidemia: Plan: Statin now held for today given Dapto as above (8) Hypothyroidism: Plan: Continue levothyroxine. (9) Diabetic nephropathy associated with type 1 diabetes mellitus: Plan: Documented hx of CKD stage 3, Cr and BUN appear wnl today. Continue daily iron, calcitrol, and potassium supplement. Renally dose all medications, avoid nephrotoxic agents. Cr 0.85 , stable (10) Hyponatremia: Plan: stable at 135, normal corrected for Glu monitor BMP (11) Folate deficiency: Plan: Continue folic acid supplementation. (12) Below-knee amputation of right lower extremity: Plan: June 2021. No acute issues. Follows with Dr. Soto --> has prosthetic in room, hoping to be able to use some as had been in ho spital much since he got and wants to get used to using it Daughter Loulou ([phone] - number given by patient). Patient has been updating her and is a good historian Plan: Bypass Monday, amputation tentatively for next Monday with Dr Soto NPO after midnight Admission and Anticipated Discharge Date Admission Date: November 10, 2021 Supervising Physician Co-Signing Physician Notes Attending Attestation - Chart reviewed in detail, care plan d/w PA Rosey Preston. I agree w/ the perez components of her documentation. Severe PAD. Complex infections of Left foot 2nd pseudomonas & MSSA. Cont IV abx. Rising WBC count despite the pip/tazo -- has prior h/o VRE - add IV daptomycin while awaiting surgical intervention next week. Isaac Segovia MD Subjective Patient evaluated this afternoon. Doing well. Pain to foot controlled, primarily to heel. Does have some buttocks pain, small tear at top of crack, no drainage but is t charles to palpation. Appears as pressure sore, patient attempting to take breaks/sitting to side to take off pressure. Denied need for pain medication for such. Seen by panama hat smearer yesterday but doesn't think he mentioned his buttocks. They have been using barrier cream to the area. Increased amounts of flatus this morning and feeling like he has to move his bowels. Denies feeling feverish/chills, no chest pain or shortness of breath, abdominal pain, nausea or vomiting. Plans for bypass tomorrow, NPO after midnight. Review of Systems Review of Systems: All systems reviewed & are unremarkable except as noted in HPI & below Physical Exam Physical Exam: General : WD/WN chronically ill appearing male, laying in bed, NAD HEENT: Head normocephalic/atraumatic; hearing intact, mmm Neck: trachea midline without deviation Resp: CTAB, no w/c/r, on room air SpO2 96% CV: RRR no m/r/g, no edema GI: +BS throughout, soft, non-tender, no guarding or rebound : no jerez Psych: AOx3, calm and cooperative MSK/Skin: R BKA with small scab to anterior midline with Betadine, no abscess/fluctuance/drainage or erythema, non-tender. L foot with gangrenous great toe (more eschar/darkened appearance, non-tender), prior amputation of 2nd digit, 3rd digit with eschar as distal aspect, 4th digit also necrotic (worsening from days prior), ulceration to plantar aspect 5th digit, R heel also with eschar/ulceration and tenderness to palpation Buttocks with ecchymosis, pressure sore, small opening/tear near superior aspect of midline intergluteal cleft, tender to palpation, no visible or expressible drainage, covered with barrier cream Neuro: speech clear/appropriate, no focal deficits, answering questions appropriately Results & Data Results & Data ([facility]) Vital Signs (Past 12 Hours) Vital Signs Temp Pulse Resp BP Pulse Ox Pulse Ox 11/17/21 23:00 95 11/17/21 22:30 36.8 C 77 20 162/77 H 95 Laboratory Results 11/18/21 11/18/21 11/18/21 Range/Units 12:21 12:21 11:38 WBC (4.8-10.8) K/uL RBC (4.7-6.1) M/uL Hgb (14.0-18.0) g/dL Hct (42-52) % MCV (80-100) fL MCH (25-34) pg MCHC (32-36) g/dL RDW Std Deviation (36.4-46.3) fL RDW Coeff of Chan (11.5-14.5) % Plt Count (130-400) K/uL MPV (7.4-10.4) fL Immature Gran % (Auto) % Neut % (Auto) % Lymph % (Auto) % [place] % (Auto) % Eos % (Auto) % Baso % (Auto) % Neut # (Auto) (1.4-6.5) K/uL Lymph # (Auto) (1.2-3.4) K/uL [place] # (Auto) (0.11-0.59) K/uL Eos # (Auto) (0-0.5) K/uL Baso # (Auto) (0-0.2) K/uL Immature Gran # (Auto) (0.00-0.02) K/uL APTT (21.0-31.0) Seconds PTT Ratio Sodium (136-145) mmol/L Potassium (3.5-5.1) mmol/L Chloride (98-107) mmol/L Carbon Dioxide (21-32) mmol/L Anion Gap (3-11) BUN (6-23) mg/dl Creatinine (0.6-1.4) mg/dl Est Cr Clr Drug Dosing ml/min Est GFR ( Amer) ml/min Est GFR (Non-Af Amer) ml/min BUN/Creatinine Ratio (10-20) Glucose (70-99(Fasting)) mg/dl POC Glucose 282 H (70-99) mg/dl Calcium (8.5-10.1) mg/dl Magnesium (1.7-2.4) mg/dl Iron 40 (35-175) mcg/dl TIBC 221 L (250-450) mcg/dl Unsaturated IBC 181 (155-355) mcg/dl Transferrin % Sat 18 L (20-50) % Ferritin 93.3 (8-388) ng/ml Vitamin B12 Pending 11/18/21 11/18/21 11/18/21 Range/Units 07:40 06:24 06:24 WBC (4.8-10.8) K/uL RBC (4.7-6.1) M/uL Hgb (14.0-18.0) g/dL Hct (42-52) % MCV (80-100) fL MCH (25-34) pg MCHC (32-36) g/dL RDW Std Deviation (36.4-46.3) fL RDW Coeff of Chan (11.5-14.5) % Plt Count (130-400) K/uL MPV (7.4-10.4) fL Immature Gran % (Auto) % Neut % (Auto) % Lymph % (Auto) % [place] % (Auto) % Eos % (Auto) % Baso % (Auto) % Neut # (Auto) (1.4-6.5) K/uL Lymph # (Auto) (1.2-3.4) K/uL [place] # (Auto) (0.11-0.59) K/uL Eos # (Auto) (0-0.5) K/uL Baso # (Auto) (0-0.2) K/uL Immature Gran # (Auto) (0.00-0.02) K/uL APTT 50.4 H* (21.0-31.0) Seconds PTT Ratio 1.8 Sodium 135 L (136-145) mmol/L Potassium 4.7 (3.5-5.1) mmol/L Chloride 98 (98-107) mmol/L Carbon Dioxide 28 (21-32) mmol/L Anion Gap 9 (3-11) BUN 12 (6-23) mg/dl Creatinine 0.85 (0.6-1.4) mg/dl Est Cr Clr Drug Dosing 84.9 ml/min Est GFR ( Amer) 106.7 ml/min Est GFR (Non-Af Amer) 92.1 ml/min BUN/Creatinine Ratio 14.1 (10-20) Glucose 229 H (70-99(Fasting)) mg/dl POC Glucose 273 H (70-99) mg/dl Calcium 8.8 (8.5-10.1) mg/dl Magnesium 1.8 (1.7-2.4) mg/dl Iron (35-175) mcg/dl TIBC (250-450) mcg/dl Unsaturated IBC (155-355) mcg/dl Transferrin % Sat (20-50) % Ferritin (8-388) ng/ml Vitamin B12 11/18/21 11/17/21 11/17/21 Range/Units 06:24 19:52 17:01 WBC 13.25 H (4.8-10.8) K/uL RBC 4.15 L (4.7-6.1) M/uL Hgb 11.8 L (14.0-18.0) g/dL Hct 36.2 L (42-52) % MCV 87.2 (80-100) fL MCH 28.4 (25-34) pg MCHC 32.6 (32-36) g/dL RDW Std Deviation 45.7 (36.4-46.3) fL RDW Coeff of Chan 14.5 (11.5-14.5) % Plt Count 370 (130-400) K/uL MPV 9.8 (7.4-10.4) fL Immature Gran % (Auto) 0.4 % Neut % (Auto) 66.4 % Lymph % (Auto) 18.9 % [place] % (Auto) 8.9 % Eos % (Auto) 5.0 % Baso % (Auto) 0.4 % Neut # (Auto) 8.81 H (1.4-6.5) K/uL Lymph # (Auto) 2.50 (1.2-3.4) K/uL [place] # (Auto) 1.18 H (0.11-0.59) K/uL Eos # (Auto) 0.66 H (0-0.5) K/uL Baso # (Auto) 0.05 (0-0.2) K/uL Immature Gran # (Auto) 0.05 H (0.00-0.02) K/uL APTT (21.0-31.0) Seconds PTT Ratio Sodium (136-145) mmol/L Potassium (3.5-5.1) mmol/L Chloride (98-107) mmol/L Carbon Dioxide (21-32) mmol/L Anion Gap (3-11) BUN (6-23) mg/dl Creatinine (0.6-1.4) mg/dl Est Cr Clr Drug Dosing ml/min Est GFR ( Amer) ml/min Est GFR (Non-Af Amer) ml/min BUN/Creatinine Ratio (10-20) Glucose (70-99(Fasting)) mg/dl POC Glucose 129 H 85 (70-99) mg/dl Calcium (8.5-10.1) mg/dl Magnesium (1.7-2.4) mg/dl Iron (35-175) mcg/dl TIBC (250-450) mcg/dl Unsaturated IBC (155-355) mcg/dl Transferrin % Sat (20-50) % Ferritin (8-388) ng/ml Vitamin B12 11/17/21 11/17/21 11/17/21 Range/Units 17:00 16:40 16:39 WBC (4.8-10.8) K/uL RBC (4.7-6.1) M/uL Hgb (14.0-18.0) g/dL Hct (42-52) % MCV (80-100) fL MCH (25-34) pg MCHC (32-36) g/dL RDW Std Deviation (36.4-46.3) fL RDW Coeff of Chan (11.5-14.5) % Plt Count (130-400) K/uL MPV (7.4-10.4) fL Immature Gran % (Auto) % Neut % (Auto) % Lymph % (Auto) % [place] % (Auto) % Eos % (Auto) % Baso % (Auto) % Neut # (Auto) (1.4-6.5) K/uL Lymph # (Auto) (1.2-3.4) K/uL [place] # (Auto) (0.11-0.59) K/uL Eos # (Auto) (0-0.5) K/uL Baso # (Auto) (0-0.2) K/uL Immature Gran # (Auto) (0.00-0.02) K/uL APTT (21.0-31.0) Seconds PTT Ratio Sodium (136-145) mmol/L Potassium (3.5-5.1) mmol/L Chloride (98-107) mmol/L Carbon Dioxide (21-32) mmol/L Anion Gap (3-11) BUN (6-23) mg/dl Creatinine (0.6-1.4) mg/dl Est Cr Clr Drug Dosing ml/min Est GFR ( Amer) ml/min Est GFR (Non-Af Amer) ml/min BUN/Creatinine Ratio (10-20) Glucose (70-99(Fasting)) mg/dl POC Glucose 56 L* 65 L* 67 L* (70-99) mg/dl Calcium (8.5-10.1) mg/dl Magnesium (1.7-2.4) mg/dl Iron (35-175) mcg/dl TIBC (250-450) mcg/dl Unsaturated IBC (155-355) mcg/dl Transferrin % Sat (20-50) % Ferritin (8-388) ng/ml Vitamin B12 PG Care Time/CCT Total # of Minutes Spent Total Time Spent with Patient: Total time spent is greater than 50% in coordination of care (as documented) at patient's floor/unit and/or counseling patient: Coding Level of Care Code 15677 Subseq Hosp Care Lvl 3 Diagnoses Diabetic ulcer of left foot E11.621; L97.529 Clostridium difficile colitis A04.72 Diabetes mellitus type 1 E10.9 CAD (coronary artery disease) I25.10 Associated angina: without angina Coronary Disease-Associated Artery/Lesion type: torres martinez artery [place] vs. transplanted heart: torres martinez heart PVD (peripheral vascular disease) I73.9 Hypertension I10 Hypertension type: unspecified Dyslipidemia E78.5 Hypothyroidism E03.9 Hypothyroidism type: unspecified Diabetic nephropathy associated with type 1 diabetes mellitus E10.21 Hyponatremia E87.1 Folate deficiency E53.8 Below-knee amputation of right lower extremity S88.111A (1) CAD (coronary artery disease) Associated angina: without angina Coronary Disease-Associated Artery/Lesion type: torres martinez artery [place] vs. transplanted heart: torres martinez heart Qualified Code(s): I25.10 - Atherosclerotic heart disease of torres martinez coronary artery without angina pectoris (2) Hypothyroidism Hypothyroidism type: unspecified Qualified Code(s): E03.9 - Hypothyroidism, unspecified (3) Hypertension Hypertension type: unspecified Qualified Code(s): I10 - Essential (primary) hypertension
[2021-11-18 07:36] LABS: BUN Creatinine Ratio 14.1 (10-20); Calcium 8.8 mg/dl (8.5-10.1); Creatinine Clr Calc Pharmacy 84.9 ml/min; Est GFR (African American) 106.7 ml/min; Est GFR (Non-African American) 92.1 ml/min; Magnesium 1.8 mg/dl (1.7-2.4); Potassium 4.7 mmol/L (3.5-5.1)
[2021-11-18 07:37] LABS: Partial Thromboplastin Ratio 1.8
[2021-11-18 07:54] LABS: Partial Thromboplastin Time 50.4 Seconds (21.0-31.0)
[2021-11-18] MEDS: INSULIN ASPART PER UNIT SC SCH ×5 (08:21→23:58)
[2021-11-18] MEDS ORDERED: INSULIN GLARGINE SOLOSTAR 100 UNITS/ML 3 ML PEN SC SCH (09:00)
[2021-11-18] MEDS: FERROUS SULFATE 325 MG TAB PO SCH ×2 (09:20→21:00)
[2021-11-18] MEDS: METOPROLOL TARTRATE 25 MG TAB PO SCH ×2 (09:20→20:59)
[2021-11-18] MEDS: POTASSIUM CHLORIDE CRTAB 20 MEQ TABCR PO SCH (09:21)
[2021-11-18] MEDS: CLOPIDOGREL BISULFATE 75 MG TAB PO SCH (09:21)
--- NOTE | 2021-11-18 09:21 | XRay Report ---
XR chest 1V portable CLINICAL HISTORY: leukocytosis TECHNIQUE: Single frontal radiograph of the chest was obtained. Comparison: Comparison is made to chest one view 08/24/2021 FINDINGS: No lines and tubes are seen. Calcified aortic knob is seen. The lungs are clear. No evidence of pleur al effusion or pneumothorax. IMPRESSION: No acute abnormality and in particular no evidence of pneumonia. ACT 112: Negative or not required by law. Electronically signed by: Lazaro De León M.D. 11/18/2021 9:19 AM
[2021-11-18] MEDS: ASPIRIN 81 MG ECTAB PO SCH (09:22)
[2021-11-18] MEDS: CALCITRIOL 0.25 MCG CAPSULE PO SCH (09:22)
[2021-11-18] MEDS: PANTOprazole 40 MG TAB PO SCH (09:22)
[2021-11-18] MEDS: FOLIC ACID 1 MG TAB PO SCH (09:22)
[2021-11-18] MEDS: ADVANCED PROBIOTIC 1250 MG CAPSULE PO SCH (09:23)
[2021-11-18] MEDS ORDERED: VANCOMYCIN CONSULT ACTIVE PRN (10:32)
[2021-11-18 13:16] LABS: Ferritin 93.3 ng/ml (8-388)
[2021-11-18] MEDS ORDERED: DAPTOmycin 400 MG in SYRINGE 0 ML IV ONE (13:30)
--- NOTE | 2021-11-18 14:02 | Pharmacy Report ---
Pharmacy Glycemic Short Note 2 - Date of Service November 18, 2021 - Glycemic Short BSG Results (Last 24 hours): 11/17/21 11/17/21 11/17/21 16:39 16:40 17:00 Glucose POC Glucose 67 L* 65 L* 56 L* 11/17/21 11/17/21 11/18/21 17:01 19:52 06:24 Glucose 229 H POC Glucose 85 129 H 11/18/21 11/18/21 07:40 11:38 Glucose POC Glucose 273 H 282 H OUTPATIENT ANTIDIABETIC REGIMEN: * Novolog insulin pump: ~53 units/day * Basal: 1.65 units/hr (39.6 units/day) * Correction Factor: 30 mg/dL/unit * Nutritional / Prandial insulin per carb ratio of 1 unit per 6 grams CHO consumed * HbA1c: 8.0% (11/11/21) ASSESSMENT: 11/18 * BSGs yesterday of 179, 239, 67, and 129 mg/dL, fasting BSG inexplicably elevated this morning at 273 mg/dL * Given hypoglycemia at dinnertime, will loosen CF at lunchtime * Not overreacting to hyperglycemia at lunch today, as BSGs consistently come down at dinnertime and patient will be NPO after midnight for vascular procedure tomorrow morning 11/16 * Mr Chowdhury was NPO yesterday for vascular intervention. He has resumed his diet post-op. Pt will likely become NPO again night for procedure Monday. Will follow closely. * Lunch BSG tends to be elevated, so will tighten carb coverage with breakfast only. * Lantus dose increased slightly for tomorrow, as fasting BSG above goal. 11/14 * Patient's BSGs yesterday were [phone] and overnight were 73-167 mg/dL. Fasting today is 222 mg/dL. * Elevated BSG at dinnertime secondary to pump transition plus patient's own bolus at lunchtime. * Will give Lantus 38 units this morning to allow for some Lantus overlap and to decrease BSGs further. * Novolog as per previous as it does appear to have corrected patient appropriately. 11/13 * Patient's BSGs yesterday were [phone]. Patient received an 8 unit bolus yesterday evening for BSG of 461. * Patient corrected himself sporadically overnight. * Fasting today was 263 mg/dL. Lunch BSG was 326. * Nurse discussed with patient that due to high BSGs, it was prudent to remove insulin pump and manage basal/bolus. He is comfortable with this. Already gave lunch coverage. * Lantus 38 units x 1 and remove insulin pump 2 hours after this given. * Novolog based upon previous hospitalization. Background * Mr Chowdhury is a 66yo type 1 diabetic male, admitted with worsening DM foot ulcer/infection. * On admission last night, insulin pump was to be held and pt was initiated on SQ basal/bolus insulin. * BSGs have been on the low side today. When CDE visited pt today, he was found to still have his insulin pump running. SQ insulin orders stopped. * Will attempt to allow pt to manage himself with his insulin pump as long as BSGs are appropriate. * If BSGs become unstable, will convert back to SQ insulin. PLAN FOR INPATIENT GLYCEMIC CONTROL: * Basal insulin * Lantus 38 units SQ daily * Bolus insulin - * NovoLog per scale ACHS or Q6hrs while NPO * Goal Range: Low 110 mg/dL - High 140 mg/dL * Correction Factor: 25 mg/dL/unit with breakfast, 30 mg/dL/unit with lunch, dinner, HS * Nutritional / Prandial insulin per carb ratio of 1 unit per 4 grams CHO consumed with breakfast, 1 unit per 5 grams CHO consumed with lunch/dinner/HS
--- NOTE | 2021-11-18 14:11 | Communication Note ---
Date of Service: November 18, 2021 Mr. Chowdhury is scheduled for a femoral to anterior tibial bypass tomorrow. I have discussed the risks options and benefits of the procedure with the patient. The patient understands the risks options and benefits and agrees to the procedure.
[2021-11-18] MEDS: CARBOHYDRATES FOR HYPOGLYCEMIA PO PRN (19:42)
[2021-11-18] MEDS: oxyCODONE HCL IR 5 MG TAB (IMMEDIATE RELEASE) PO PRN (21:00)
[2021-11-19] MEDS ORDERED: HYDROmorphone INJ 0.5 MG/0.5 ML SYR IV STA (03:45)
[2021-11-19] MEDS: LEVOTHYROXINE SODIUM 175 MCG TABLET PO SCH (05:31)
[2021-11-19] MEDS: INSULIN ASPART PER UNIT SC SCH ×3 (06:13→17:15)
[2021-11-19] MEDS: PIPERACILLIN/TAZOBACTAM 3.375 GM in DEXTROSE 5% 100 ML IV SCH ×3 (07:06→23:04)
[2021-11-19] MEDS ORDERED: INSULIN GLARGINE SOLOSTAR 100 UNITS/ML 3 ML PEN SC ONE ×2 (07:15→15:30)
--- NOTE | 2021-11-19 07:46 | Hospitalist Progress Note ---
Date of Service November 19, 2021 Assessment & Plan (1) Diabetic ulcer of left foot: Plan: LLE erythema and edema that goes slightly above malleolus with several skin fissures, necrotic ulcerated wound on 1.) medial aspect of L great toe with eschar, 2.) medial aspect of third toe with some drainage and eschar, 3.) on upper lateral border of left sole with eschar, and 4.) on heel of left foot with necrotic tissue. Pulses intact, extremity without pallor or decreased temperature, pt has diminished sensation at baseline, but has some sensation along medial and lateral aspect of foot. Minimal pain. XR - soft tissue swelling with no acute bony abnormality identified. XR Tib/fib with old healed fractures of the distal tibia and fibula with post-traumatic deformity present; OA Heparin gtt for U/S w/ complete occlusion of the [place] superficial femoral and popliteal arteries; bypass graft extending from superficial femoral artery to the posterior tibial artery with near complete to complete occlusion below the knee; no flow shown within the peroneal artery; anterior and posterior tibial arteries appear patent Wound Cx - Pseudomonas and S. Aureus (MSSA) Wound RN consulted Vascular on consult * s/p Left Lower Extremity Angiogram, ultrasound localization of right femoral artery, mechanical closure of right femoral artery moderate sedation 1050- 1143(Right) - Floyd Eason MD on 11/15. EBL 15cc. Now, s/p Left Femoral to Anterior Tibial Bypass with Cadaver Vein and Embolization of side branch of the bypass(Left) - Floyd Eason MD 11/19. Zosyn continued, Dapto added back 11/18 for elevated WBC and prior hx VRE and will continue such Hold statin while on Dapto WBC currently 11k, afebrile Ordered gentle IVF while NPO and will continue for now given dehydration on examination for 1L. EBL from surgery 150cc Labs in AM Continue to monitor--> Orthopedics on consult * Plans for amputation early next week, will re-eval on Monday when Dr Soto back in town and tentatively planning for surgery on Monday (2) PVD (peripheral vascular disease): Plan: -B/L iliac artery stents (2014), R common/external iliac (2017), R common femoral endarterectomy (11/2018) with bovine patch. Left femoral to PT composite bypass graft (06/2020). as above, s/p angio , now s/p L fem-anterior tibial bypass this morning with Dr Eason Statin on hold while on dapto, CK wnl (3) Diabetes mellitus type 1: Plan: Uncontrolled, has insulin pump outside of here and typically when off usual pump does have fluctuations Slight hypoglycemia last evening, asymptomatic. BSGs improved this morning but did not get insulin per pharmacy (on consult) prior to procedure --> will check tonight/adjustments as needed Monitor (4) CAD (coronary artery disease): Plan: S/P CABG x 1 (2015). Aortic Stenosis s/p porcine AV No chest pain today. Continue DAPT w/ ASA and Plavix, and metoprolol. Discussed that all three can remain for vascular procedure -- will need to talk with ortho in regards to anti-platelets for ortho surgery -- Would like to avoid triple therapy Hold statin for Dapto as above No CP/SOb post-operatively (5) Clostridium difficile colitis: Plan: H/O -- previously on slow long taper of po Vanc last admission Has occassional constipation On probiotic while on abx therapy --> had liquid stool earlier in stay, black, but on Fe BID Recent c-scope w/o abnormality cdiff negative earlier in stay, retest if occurs again (6) Hypertension: Plan: Patient initially hypotensive in ED and responded to fluid bolus - BPs acceptable Continue Metoprolol 12.5 mg BID (7) Dyslipidemia: Plan: Statin now held given Dapto as above (8) Hypothyroidism: Plan: Continue levothyroxine. (9) Diabetic nephropathy associated with type 1 diabetes mellitus: Plan: Documented hx of CKD stage 3, Cr and BUN appear wnl today. Continue daily iron, calcitrol, and potassium supplement. Renally dose all medications, avoid nephrotoxic agents. Cr 0.80 , stable (10) Hyponatremia: Plan: stable at 134, normal corrected for Glu however slightly dehydrated and ordered 1L IVF as above monitor BMP (11) Folate deficiency: Plan: Continue folic acid supplementation. (12) Below-knee amputation of right lower extremity: Plan: June 2021. No acute issues. Follows with Dr. Soto --> has prosthetic in room, hoping to be able to use some as had been in hospital much since he got and wants to get used to using it Shaan Jamil ([phone] - number given by patient). Patient has been updating her and is a good historian -- attempted to call for update but no answer Plan: s/p bypass as above, monitoring post-op on PCU amputation tentatively for next Monday with Dr Soto Admission and Anticipated Discharge Date Admission Date: November 10, 2021 Supervising Physician Co-Signing Physician Notes Attending Attestation - Chart reviewed in detail, care plan d/w BENITO Preston. I agree w/ the perez components of her documentation. Severe PAD. Complex infections of Left foot 2nd pseudomonas & MSSA. Cont IV abx. ?TMA vs BKA next week of left LE? (Dr Soto) Isaac Segovia MD Subjective Patient evaluated this afternoon post-operatively in room 209. Patient feeling ok, pain controlled currently but main concern is pain to his buttocks and wondering how long he must remain flat. Discussed with nursing, checking with Dr Eason. Patient states his mouth is very dry and would like swab -- discussed with nursing and if gag reflex intact can give water. Discussed wound RN to check on buttocks wound as discussed while inpatient and will have nursing reposition/waffle cushion if needed. Denies fever/chills, chest pain, shortness of breath, abdominal pain, nausea or vomiting at this time. Questions/concerns addressed Review of Systems Review of Systems: All systems reviewed & are unremarkable except as noted in HPI & below Physical Exam Physical Exam: General : WN/WD male laying flat in bed, bearhugger in place, NAD but complaints of pain to his buttocks HEENT: head normocephalic, atraumatic, hearing intact, DRY MM Resp: CTAB, no w/c/r, on 2L post-op with SpO2 95% CV: RRR, no m/r/g, LLE edema post-operatively, calves supple GI: +BS, soft, non-tender MSK: R BKA with scab to anterior midline, no asbcess/flutuance/erythema or tenderness to palpation LLE with surgical dressings c/d/i, tender to palpation Skin: L foot with gangrenous great toe (more eschar/darkened appearance than earlier in week but not as bad as yesterday, non-tender), prior amputation of 2nd digit, 3rd digit with eschar as distal aspect, 4th digit also necrotic (worsening from days prior), ulceration to plantar aspect 5th digit, R heel also with eschar/ulceration and tenderness to palpation Prior buttocks wound not observed as patient to remain flat post-op for now, however previously buttocks with ecchymosis, pressure sore, small opening/tear near superior aspect of midline intergluteal cleft, tender to palpation, no visible or expressible drainage, covered with barrier cream Neuro: speech clear/appropriate, no focal deficits, answering questions appropriately Results & Data Results & Data ([facility]) Vital Signs (Past 12 Hours) Vital Signs Temp Pulse Resp BP Pulse Ox 11/18/21 22:52 36.9 C 76 18 149/78 H 95 Laboratory Results 11/19/21 11/19/21 11/19/21 Range/Units 14:20 10:57 08:18 WBC (4.8-10.8) K/uL RBC (4.7-6.1) M/uL Hgb (14.0-18.0) g/dL Hct (42-52) % MCV (80-100) fL MCH (25-34) pg MCHC (32-36) g/dL RDW Std Deviation (36.4-46.3) fL RDW Coeff of Chan (11.5-14.5) % Plt Count (130-400) K/uL MPV (7.4-10.4) fL Immature Gran % (Auto) % Neut % (Auto) % Lymph % (Auto) % Mathews % (Auto) % Eos % (Auto) % Baso % (Auto) % Neut # (Auto) (1.4-6.5) K/uL Lymph # (Auto) (1.2-3.4) K/uL Mathews # (Auto) (0.11-0.59) K/uL Eos # (Auto) (0-0.5) K/uL Baso # (Auto) (0-0.2) K/uL Immature Gran # (Auto) (0.00-0.02) K/uL APTT (21.0-31.0) Seconds PTT Ratio Sodium (136-145) mmol/L Potassium (3.5-5.1) mmol/L Chloride (98-107) mmol/L Carbon Dioxide (21-32) mmol/L Anion Gap (3-11) BUN (6-23) mg/dl Creatinine (0.6-1.4) mg/dl Est Cr Clr Drug Dosing ml/min Est GFR ( Amer) ml/min Est GFR (Non-Af Amer) ml/min BUN/Creatinine Ratio (10-20) Glucose (70-99(Fasting)) mg/dl POC Glucose 235 H 216 H 194 H (70-99) mg/dl Calcium (8.5-10.1) mg/dl Magnesium (1.7-2.4) mg/dl Total Creatine Kinase (30-223) U/L Blood Type Antibody Screen Crossmatch 11/19/21 11/19/21 11/19/21 Range/Units 07:26 07:26 07:26 WBC 11.42 H (4.8-10.8) K/uL RBC 4.05 L (4.7-6.1) M/uL Hgb 11.4 L (14.0-18.0) g/dL Hct 35.3 L (42-52) % MCV 87.2 (80-100) fL MCH 28.1 (25-34) pg MCHC 32.3 (32-36) g/dL RDW Std Deviation 46.2 (36.4-46.3) fL RDW Coeff of Chan 14.5 (11.5-14.5) % Plt Count 380 (130-400) K/uL MPV 9.5 (7.4-10.4) fL Immature Gran % (Auto) 0.4 % Neut % (Auto) 61.5 % Lymph % (Auto) 21.2 % Mathews % (Auto) 10.6 % Eos % (Auto) 6.0 % Baso % (Auto) 0.3 % Neut # (Auto) 7.02 H (1.4-6.5) K/uL Lymph # (Auto) 2.42 (1.2-3.4) K/uL Mathews # (Auto) 1.21 H (0.11-0.59) K/uL Eos # (Auto) 0.69 H (0-0.5) K/uL Baso # (Auto) 0.03 (0-0.2) K/uL Immature Gran # (Auto) 0.05 H (0.00-0.02) K/uL APTT 51.0 H* (21.0-31.0) Seconds PTT Ratio 1.9 Sodium 134 L (136-145) mmol/L Potassium 4.1 (3.5-5.1) mmol/L Chloride 97 L (98-107) mmol/L Carbon Dioxide 30 (21-32) mmol/L Anion Gap 7 (3-11) BUN 12 (6-23) mg/dl Creatinine 0.80 (0.6-1.4) mg/dl Est Cr Clr Drug Dosing 90.3 ml/min Est GFR ( Amer) 109.4 ml/min Est GFR (Non-Af Amer) 94.4 ml/min BUN/Creatinine Ratio 15.0 (10-20) Glucose 208 H (70-99(Fasting)) mg/dl POC Glucose (70-99) mg/dl Calcium 8.4 L (8.5-10.1) mg/dl Magnesium 1.8 (1.7-2.4) mg/dl Total Creatine Kinase (30-223) U/L Blood Type Antibody Screen Crossmatch 11/19/21 11/19/21 11/18/21 Range/Units 06:02 05:58 23:57 WBC (4.8-10.8) K/uL RBC (4.7-6.1) M/uL Hgb (14.0-18.0) g/dL Hct (42-52) % MCV (80-100) fL MCH (25-34) pg MCHC (32-36) g/dL RDW Std Deviation (36.4-46.3) fL RDW Coeff of Chan (11.5-14.5) % Plt Count (130-400) K/uL MPV (7.4-10.4) fL Immature Gran % (Auto) % Neut % (Auto) % Lymph % (Auto) % Mathews % (Auto) % Eos % (Auto) % Baso % (Auto) % Neut # (Auto) (1.4-6.5) K/uL Lymph # (Auto) (1.2-3.4) K/uL Mathews # (Auto) (0.11-0.59) K/uL Eos # (Auto) (0-0.5) K/uL Baso # (Auto) (0-0.2) K/uL Immature Gran # (Auto) (0.00-0.02) K/uL APTT (21.0-31.0) Seconds PTT Ratio Sodium (136-145) mmol/L Potassium (3.5-5.1) mmol/L Chloride (98-107) mmol/L Carbon Dioxide (21-32) mmol/L Anion Gap (3-11) BUN (6-23) mg/dl Creatinine (0.6-1.4) mg/dl Est Cr Clr Drug Dosing ml/min Est GFR ( Amer) ml/min Est GFR (Non-Af Amer) ml/min BUN/Creatinine Ratio (10-20) Glucose (70-99(Fasting)) mg/dl POC Glucose 208 H 213 H 115 H (70-99) mg/dl Calcium (8.5-10.1) mg/dl Magnesium (1.7-2.4) mg/dl Total Creatine Kinase (30-223) U/L Blood Type Antibody Screen Crossmatch 11/18/21 11/18/21 11/18/21 Range/Units 21:12 21:01 19:57 WBC (4.8-10.8) K/uL RBC (4.7-6.1) M/uL Hgb (14.0-18.0) g/dL Hct (42-52) % MCV (80-100) fL MCH (25-34) pg MCHC (32-36) g/dL RDW Std Deviation (36.4-46.3) fL RDW Coeff of Chan (11.5-14.5) % Plt Count (130-400) K/uL MPV (7.4-10.4) fL Immature Gran % (Auto) % Neut % (Auto) % Lymph % (Auto) % Mathews % (Auto) % Eos % (Auto) % Baso % (Auto) % Neut # (Auto) (1.4-6.5) K/uL Lymph # (Auto) (1.2-3.4) K/uL Mathews # (Auto) (0.11-0.59) K/uL Eos # (Auto) (0-0.5) K/uL Baso # (Auto) (0-0.2) K/uL Immature Gran # (Auto) (0.00-0.02) K/uL APTT (21.0-31.0) Seconds PTT Ratio Sodium (136-145) mmol/L Potassium (3.5-5.1) mmol/L Chloride (98-107) mmol/L Carbon Dioxide (21-32) mmol/L Anion Gap (3-11) BUN (6-23) mg/dl Creatinine (0.6-1.4) mg/dl Est Cr Clr Drug Dosing ml/min Est GFR ( Amer) ml/min Est GFR (Non-Af Amer) ml/min BUN/Creatinine Ratio (10-20) Glucose (70-99(Fasting)) mg/dl POC Glucose 129 H 76 (70-99) mg/dl Calcium (8.5-10.1) mg/dl Magnesium (1.7-2.4) mg/dl Total Creatine Kinase 90 (30-223) U/L Blood Type Antibody Screen Crossmatch 11/18/21 11/18/21 11/18/21 Range/Units 19:39 16:37 16:37 WBC (4.8-10.8) K/uL RBC (4.7-6.1) M/uL Hgb (14.0-18.0) g/dL Hct (42-52) % MCV (80-100) fL MCH (25-34) pg MCHC (32-36) g/dL RDW Std Deviation (36.4-46.3) fL RDW Coeff of Chan (11.5-14.5) % Plt Count (130-400) K/uL MPV (7.4-10.4) fL Immature Gran % (Auto) % Neut % (Auto) % Lymph % (Auto) % Mathews % (Auto) % Eos % (Auto) % Baso % (Auto) % Neut # (Auto) (1.4-6.5) K/uL Lymph # (Auto) (1.2-3.4) K/uL Mathews # (Auto) (0.11-0.59) K/uL Eos # (Auto) (0-0.5) K/uL Baso # (Auto) (0-0.2) K/uL Immature Gran # (Auto) (0.00-0.02) K/uL APTT (21.0-31.0) Seconds PTT Ratio Sodium (136-145) mmol/L Potassium (3.5-5.1) mmol/L Chloride (98-107) mmol/L Carbon Dioxide (21-32) mmol/L Anion Gap (3-11) BUN (6-23) mg/dl Creatinine (0.6-1.4) mg/dl Est Cr Clr Drug Dosing ml/min Est GFR ( Amer) ml/min Est GFR (Non-Af Amer) ml/min BUN/Creatinine Ratio (10-20) Glucose (70-99(Fasting)) mg/dl POC Glucose 57 L* 128 H (70-99) mg/dl Calcium (8.5-10.1) mg/dl Magnesium (1.7-2.4) mg/dl Total Creatine Kinase (30-223) U/L Blood Type A Positive Antibody Screen NEGATIVE Crossmatch See Detail PG Care Time/CCT Total # of Minutes Spent Total Time Spent with Patient: Total time spent is greater than 50% in coordination of care (as documented) at patient's floor/unit and/or counseling patient: Coding Level of Care Code 78911 Subseq Hosp Care Lvl 3 Diagnoses Diabetic ulcer of left foot E11.621; L97.529 PVD (peripheral vascular disease) I73.9 Diabetes mellitus type 1 E10.9 CAD (coronary artery disease) I25.10 Associated angina: without angina Coronary Disease-Associated Artery/Lesion type: [place] artery [place] vs. transplanted heart: [place] heart Clostridium difficile colitis A04.72 Hypertension I10 Hypertension type: unspecified Dyslipidemia E78.5 Hypothyroidism E03.9 Hypothyroidism type: unspecified Diabetic nephropathy associated with type 1 diabetes mellitus E10.21 Hyponatremia E87.1 Folate deficiency E53.8 Below-knee amputation of right lower extremity S88.111A (1) CAD (coronary artery disease) Associated angina: without angina Coronary Disease-Associated Artery/Lesion type: [place] artery [place] vs. transplanted heart: [place] heart Qualified Code(s): I25.10 - Atherosclerotic heart disease of [place] coronary artery without angina pectoris (2) Hypothyroidism Hypothyroidism type: unspecified Qualified Code(s): E03.9 - Hypothyroidism, unspecified (3) Hypertension Hypertension type: unspecified Qualified Code(s): I10 - Essential (primary) hypertension
[2021-11-19] MEDS ORDERED: LIDOCAINE 2% 2 ML VIAL/AMP(20MG/ML) INFIL ONE (08:08)
[2021-11-19] MEDS ORDERED: ROCURONIUM BROMIDE 10 MG/ML 5 ML VIAL IV ONE (08:08)
[2021-11-19] MEDS ORDERED: fentaNYL citrate 100 MCG/2 ML VIAL ONE ×3 (08:08→13:59)
[2021-11-19] MEDS ORDERED: PROPOFOL IV EMULSION 10 MG/ML 20 ML VIAL IV ONE (08:08)
[2021-11-19] MEDS ORDERED: ONDANSETRON INJ 2 MG/ML 2 ML VIAL ONE (08:08)
--- NOTE | 2021-11-19 08:09 | Anesthesiology Consultation ---
Date of Service November 19, 2021 Assessment & Plan (1) Encounter for pre-operative examination: History Surgery Operation Date: 11/15/21 11:25 Proposed Procedures p Left Lower Extremity Angiogram Possible Intervention - Floyd Eason MD Operation Date: 11/19/21 09:05 Proposed Procedures p Left Femoral to Anterior Tibial Bypass - Floyd Eason MD Height/Weight Height: 5 ft 8 in Weight: 75 kg Allergies Allergy/AdvReac Type Severity Reaction Status Date / Time No Known Allergies Allergy Unknown Verified 11/10/21 13:14 Medications Home Medications Medication Instructions Recorded Confirmed Last Taken clopidogrel 75 mg tablet (Plavix) 75 mg PO QAM #30 tab 01/28/21 11/10/21 09/28/21 metoprolol tartrate 25 mg tablet 12.5 mg PO BID #90 tab 02/09/21 11/10/21 09/29/21 05:00 calcitriol 0.25 mcg capsule 0.25 mcg PO QAM #30 cap 04/27/21 11/10/21 09/28/21 (Rocaltrol) aspirin 81 mg tablet,delayed 81 mg PO QAM 05/04/21 11/10/21 09/28/21 release (Aspirin Low Dose) pantoprazole 40 mg tablet,delayed 40 mg PO QAM #30 tab 06/15/21 11/10/21 09/29/21 05:00 release (Protonix) levothyroxine 175 mcg tablet 175 mcg PO QAM 06/30/21 11/10/21 09/29/21 05:00 (Synthroid) insulin aspart U-100 100 unit/mL See Rx Instructions .ROUTE 07/14/21 11/10/21 08/24/21 (3 mL) subcutaneous pen (Novolog .COMPLEX #3 ml Flexpen U-100 Insulin aspart) ferrous sulfate 325 mg (65 mg 325 mg PO BID #60 tab 08/03/21 11/10/21 09/28/21 iron) tablet,delayed release folic acid 1 mg tablet 1 mg PO QAM #30 tab 08/03/21 11/10/21 09/28/21 lactobacillus combination no.9 4 4,000 mmu cells PO DAILY 08/04/21 11/10/21 09/28/21 billion cell capsule (Adult 50 Plus Probiotic) Bed Side Commode #1 ea 08/09/21 11/10/21 Unknown Commode rails #1 ea 08/10/21 11/10/21 Unknown potassium chloride 20 mEq 20 meq PO BID #60 tab 09/20/21 11/10/21 09/28/21 tablet,extended release insulin aspart U-100 100 unit/mL 75 unit SQ CONT 90 Days #70 ml 10/14/21 11/10/21 Unknown subcutaneous solution (Novolog U-100 Insulin aspart) atorvastatin 80 mg tablet (Lipitor) 80 mg PO HS #90 tab 11/15/21 Unknown Active Medications Generic Name Dose Route Start Last Admin Trade Name Freq PRN Reason Stop Dose Admin Acetaminophen 650 mg 11/10/21 21:12 11/15/21 23:06 Acetaminophen 325 Mg Tab PO 12/10/21 21:11 650 mg Q4H PRN Administration Pain or Fever Aspirin 81 mg 11/11/21 09:00 11/18/21 09:22 Aspirin 81 Mg Ectab PO 12/11/21 08:59 81 mg QAM LIZZY Administration Atorvastatin Calcium 80 mg 11/10/21 21:12 11/17/21 21:06 Atorvastatin 40 Mg Tab PO 12/10/21 21:11 80 mg HS LIZZY Administration Calcitriol 0.25 mcg 11/11/21 09:00 11/18/21 09:22 Calcitriol 0.25 Mcg Capsule PO 12/11/21 08:59 0.25 mcg QAM LIZZY Administration Clopidogrel Bisulfate 75 mg 11/11/21 09:00 11/18/21 09:21 Clopidogrel Bisulfate 75 Mg Tab PO 12/11/21 08:59 75 mg QAM LIZZY Administration Ferrous Sulfate 325 mg 11/10/21 21:12 11/18/21 21:00 Ferrous Sulfate 325 Mg Tab PO 12/10/21 21:11 325 mg BID LIZZY Administration Folic Acid 1 mg 11/11/21 09:00 11/18/21 09:22 Folic Acid 1 Mg Tab PO 12/11/21 08:59 1 mg QAM LIZZY Administration Heparin Sodium/Dextrose 25,000 units in 500 mls @ 27 mls/hr 11/10/21 21:45 11/19/21 06:52 Heparin Sodium/Dextrose IV 12/10/21 21:44 1,350 units/hr .[id number] LIZZY 27 mls/hr Titration Protocol 1,350 UNITS/HR Piperacillin Sod/Tazobactam 115 mls @ 28.75 mls/hr 11/18/21 08:00 11/19/21 07:06 Sod 3.375 gm/ Dextrose IV 12/30/21 07:59 28.8 mls/hr Q8H LIZZY Administration Protocol Insulin Aspart 0 units 11/19/21 00:00 11/19/21 06:13 Insulin Aspart Per Unit SC 12/19/21 00:00 3 units Q6 LIZZY Administration Iodixanol 70 ml 11/15/21 11:39 11/15/21 11:40 Visipaque IV 11/19/21 11:38 70 ml UD PRN Administration Interaction Checking Lactobacillus Acidophilus 2 cap 11/12/21 09:00 11/18/21 09:23 Advanced Probiotic 1250 Mg Capsule PO 12/12/21 08:59 2 cap DAILY LIZZY Administration Levothyroxine Sodium 175 mcg 11/11/21 06:30 11/19/21 05:31 Levothyroxine Sodium 175 Mcg Tablet PO 12/11/21 06:29 Not Given DAILYBB LIZZY Loperamide HCl 2 mg 11/12/21 15:35 11/12/21 19:06 Loperamide Hcl 2 Mg Cap PO 12/12/21 15:34 2 mg Q3H PRN Administration Diarrhea Magnesium Hydroxide 30 ml 11/10/21 23:36 11/14/21 01:27 Magnesium Hydroxide Susp 30 Ml Udc PO 12/10/21 23:35 30 ml Q6H PRN Administration Constipation Metoprolol Tartrate 12.5 mg 11/10/21 21:12 11/18/21 20:59 Metoprolol Tartrate 25 Mg Tab PO 12/10/21 21:11 12.5 mg BID LIZZY Administration Miscellaneous 15 - 30 gm 11/10/21 21:12 11/18/21 19:42 Carbohydrates For Hypoglycemia PO 12/10/21 21:11 15 gm UD PRN Administration Hypoglycemia Protocol Oxycodone HCl 5 mg 11/16/21 09:28 11/18/21 21:00 Oxycodone Hcl Ir 5 Mg Tab (Immediate Release) PO 11/30/21 09:27 5 mg Q4H PRN Administration Pain Pantoprazole Sodium 40 mg 11/11/21 09:00 11/18/21 09:22 Pantoprazole 40 Mg Tab PO 12/11/21 08:59 40 mg QAM LIZZY Administration Polyethylene Glycol 17 gm 11/10/21 21:12 11/11/21 18:35 Polyethylene (Miralax) 17 Gm Pack PO 12/10/21 21:11 17 gm DAILY PRN Administration Constipation Potassium Chloride 20 meq 11/10/21 21:12 11/18/21 09:21 Potassium Chloride Crtab 20 Meq Tabcr PO 12/10/21 21:11 20 meq BID LIZZY Administration NPO Date Last Intake of Fluids: 11/18/21 Time Last Intake of Fluids: 23:00 Last Intake of Fluids Comment: with po meds Date Last Intake of Solids: 11/18/21 Time Last Intake of Solids: 20:00 Past Medical History Medical History Aortic stenosis s/p porcine valve replacement (2015) with CABG x 1 CAD (coronary artery disease) s/p CABG x 1 (2015) CKD (chronic kidney disease) stage 2, GFR 60-89 ml/min Diabetes mellitus type 1 + Insulin pump Diabetic nephropathy associated with type 1 diabetes mellitus Dyslipidemia GERD (gastroesophageal reflux disease) History of Clostridium difficile infection History of osteomyelitis Hypertension Hypothyroidism Insulin pump in place Osteoarthritis Osteoporosis Proliferative diabetic retinopathy associated with type 1 diabetes mellitus PVD (peripheral vascular disease) s/p B/L iliac artery stents (2014), R common/external iliac (2017), R common femoral endarterectomy (11/2018) with bovine patch. Left femoral to PT composite bypass graft (06/2020) VRE infection (vancomycin resistant enterococcus), with multi-drug resistance hx Past Family History Family History Brother Family history of diabetes mellitus Sister Family history of diabetes mellitus Mother Family history of diabetes mellitus Grandmother (Maternal) Family history of diabetes mellitus Uncle Family hx of colon cancer Colorectal cancer Father Family history of esophageal cancer Sister Family history of diabetes mellitus Other No family history of adverse response to anesthesia Denies family history of Ovarian cancer Prostate cancer Myocardial infarction Breast cancer Past Surgical History Surgical History Below-knee amputation of right lower extremity RETURNED HOME FROM [facility] 07/30/21 H/O cataract extraction R/L H/O endarterectomy R common femoral (11/2018) H/O vascular surgery Right Femoral to Posterior tibial Prosthetic Bypass Graft(Right) History of ankle surgery LEFT ANKLE +HARDWARE REMOVED History of aortic valve replacement 2016 ([facility] [place]) History of arterial bypass of lower extremity Left femoral to PT composite bypass graft (06/2020) History of cardiac cath x2, most recent 2016 > no stents (subsequent CABG with AVR in 2016) History of carpal tunnel release R/L History of colonoscopy History of coronary artery bypass graft CABG x1 + AVR (2016) History of esophagogastroduodenoscopy (EGD) History of myringotomy History of open reduction and internal fixation (ORIF) procedure LLE () History of skin graft Split Thickness Skin Graft of Left Lateral Ankle (11/18/20): LMA#5, atraumatic x1 at [facility] History of tonsillectomy History of tooth extraction History of umbilical hernia repair Hx of surgical procedure Left Leg Wound Debridement and Irrigation S/P femoropopliteal bypass surgery Right fem-pop bypass graft (01/19/21): Grade 2 view, MAC 3.0, ETT 8.0 at [facility] S/P insertion of iliac artery stent B/L iliac stent placement (2014) 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 Social History Smoking Status: Former smoker tobacco type: cigarettes and smokeless tobacco Smoking cigarettes per day: Quit 15 years ago Hx Alcohol Use: No Alcohol type: beer alcohol intake frequency: holidays/special occasions only Hx Substance Use: Yes substance use type: painkillers Physical Exam Vital Signs Last Vital Signs Temp 36.9 C 11/19/21 08:22 Pulse 69 11/19/21 08:22 Resp 20 11/19/21 08:22 BP 138/81 11/19/21 08:22 Pulse Ox 95 11/19/21 08:22 Testing Laboratory Results 11/18/21 06:24 11/18/21 06:24 PT 11.4 Seconds (9.0-12.0) 11/10/21 16:34 INR 1.1 (0.9-1.1) 11/10/21 16:34 APTT 50.4 Seconds (21.0-31.0) H* 11/18/21 06:24 Hemoglobin A1c 8.0 % (4.5-5.6) H 11/11/21 05:24 Urine Color Yellow 11/10/21 18:47 Urine Appearance Clear (Clear) 11/10/21 18:47 Urine pH 5.5 (4.5-7.5) 11/10/21 18:47 Ur Specific [place] 1.018 (1.000-1.030) 11/10/21 18:47 Urine Protein Negative (Negative) 11/10/21 18:47 Urine Glucose (UA) 2+ (Negative) H 11/10/21 18:47 Urine Ketones 2+ (Negative) H 11/10/21 18:47 Urine Nitrite Negative (Negative) 11/10/21 18:47 Ur Leukocyte Esterase Negative (Negative) 11/10/21 18:47 Blood Type A Positive 11/18/21 16:37 Antibody Screen NEGATIVE 11/18/21 16:37 11/10/21 16:34 Aerobic Blood Culture - Final Blood No growth in Aerobic bottle after 5 days. Anaerobic Blood Culture - Final No growth in Anaerobic bottle after 5 days. 11/10/21 17:09 Aerobic Blood Culture - Final Blood No growth in Aerobic bottle after 5 days. Anaerobic Blood Culture - Final No growth in Anaerobic bottle after 5 days. 11/10/21 16:42 Gram Stain - Final Foot Wound Culture - Final Pseudomonas aeruginosa Staphylococcus aureus 11/19/21 11/19/21 11/18/21 06:02 05:58 23:57 POC Glucose 208 H 213 H 115 H 11/18/21 21:01 POC Glucose 129 H Electrocardiogram Date: 08/24/21 Normal sinus rhythm Left axis deviation Right bundle branch block Inferior infarct (cited on or before 31-JUL-2020) Abnormal ECG When compared with ECG of 30-JUN-2021 12:29, QRS axis Shifted left Confirmed by Bobby Lance ([id number]) on 08/27/2021 7:29:19 PM Chest X-Ray Date: 11/18/21 IMPRESSION: No acute abnormality and in particular no evidence of pneumonia. Echocardiogram Date: 07/11/22 Date: 07/11/21 EF: none mentioned LV Function: normal Valvular Disease: + (there is a bioprosthetic aortic valve; (no mention of ))
[2021-11-19] MEDS ORDERED: HEPARIN (PORCINE) 1000 UNIT/ML 10 ML (CATH LAB USE ONLY) ONE (08:24)
[2021-11-19] MEDS ORDERED: EPINEPHrine INJ 1 MG/ML AMP ONE (08:25)
[2021-11-19] MEDS ORDERED: PAPAVERINE HCL INJ 30 MG/ML 2 ML VIAL ONE (08:25)
[2021-11-19] MEDS ORDERED: LIDOCAINE 1% LOCAL 20 ML VIAL ONE (08:25)
[2021-11-19] MEDS ORDERED: BUPIVACAINE 0.5 % 5 MG/1 ML MPF 30ML VIAL ONE (08:25)
[2021-11-19] MEDS ORDERED: THROMBIN FOR SOLN 20000 UNIT KIT ONE (08:26)
[2021-11-19] MEDS ORDERED: GELATIN SPONGE SZ 100 ONE (08:26)
[2021-11-19] MEDS ORDERED: ceFAZolin 330 MG/ML 1 GM VIAL ONE (08:26)
[2021-11-19 08:34] LABS: Basophils # (auto) 0.03 K/uL (0-0.2); Basophils % (auto) 0.3 %; Eosinophils # (auto) 0.69 K/uL (0-0.5); Hematocrit (blood only) 35.3 % (42-52); Hemoglobin 11.4 g/dL (14.0-18.0); Immature Granulocytes # (auto) 0.05 K/uL (0.00-0.02); Immature Granulocytes % (auto) 0.4 %; Lymphocytes # (auto) 2.42 K/uL (1.2-3.4); Lymphocytes % (auto) 21.2 %; Mean Corpuscular Hemoglobin 28.1 pg (25-34); Mean Corpuscular Hgb Conc 32.3 g/dL (32-36); Mean Corpuscular Volume 87.2 fL (80-100); Mean Platelet Volume 9.5 fL (7.4-10.4); Monocytes # (auto) 1.21 K/uL (0.11-0.59); Monocytes % (auto) 10.6 %; Neutrophils # (auto) 7.02 K/uL (1.4-6.5); Neutrophils % (auto) 61.5 %; Platelet Count 380 K/uL (130-400); RDW Coefficient of Variation 14.5 % (11.5-14.5); RDW Standard Deviation 46.2 fL (36.4-46.3); Red Blood Count 4.05 M/uL (4.7-6.1); White Blood Count 11.42 K/uL (4.8-10.8)
[2021-11-19] MEDS ORDERED: MIDAZOLAM HCL 1 MG/ML 2ML VIAL ONE (08:48)
[2021-11-19 09:02] LABS: Partial Thromboplastin Ratio 1.9
[2021-11-19 09:07] LABS: Calcium 8.4 mg/dl (8.5-10.1); Creatinine Clr Calc Pharmacy 90.3 ml/min; Est GFR (African American) 109.4 ml/min; Est GFR (Non-African American) 94.4 ml/min; Magnesium 1.8 mg/dl (1.7-2.4); Potassium 4.1 mmol/L (3.5-5.1)
[2021-11-19] MEDS: ASPIRIN 81 MG ECTAB PO SCH (09:24)
[2021-11-19] MEDS: CALCITRIOL 0.25 MCG CAPSULE PO SCH (09:25)
[2021-11-19] MEDS: CLOPIDOGREL BISULFATE 75 MG TAB PO SCH (09:25)
[2021-11-19] MEDS: METOPROLOL TARTRATE 25 MG TAB PO SCH ×2 (09:25→20:08)
[2021-11-19] MEDS: FERROUS SULFATE 325 MG TAB PO SCH ×2 (09:25→20:09)
[2021-11-19] MEDS: ADVANCED PROBIOTIC 1250 MG CAPSULE PO SCH (09:25)
[2021-11-19] MEDS: FOLIC ACID 1 MG TAB PO SCH (09:25)
[2021-11-19] MEDS: PANTOprazole 40 MG TAB PO SCH (09:25)
[2021-11-19] MEDS ORDERED: SODIUM CHLORIDE 0.9% 500 ML IV SCH (09:30)
--- NOTE | 2021-11-19 10:04 | History & Physical Bridge Note ---
Date of Service November 19, 2021 History & Physical Bridge Note Patient for left fem to ant tib bypass today. I have discussed the risks options and benefits of the procedure with the patient. The patient understands the risks options and benefits and agrees to the procedure. I have examined the patient, reviewed the History & Physical and in the interval since the performance of the History & Physical I have noted the following changes of clinical significance: no changes noted
[2021-11-19] MEDS ORDERED: NEOSTIGMINE METHYLSULFATE 1 MG/ML 10ML VIAL ONE (11:41)
[2021-11-19] MEDS ORDERED: GLYCOPYRROLATE 0.2 MG/ML VIAL ONE (11:41)
[2021-11-19] MEDS ORDERED: HEPARIN SOD (PORCINE) 1000 UNIT/ML ONE (11:41)
[2021-11-19] MEDS ORDERED: PHENYLEPHRINE HCL 10 MG/ML VIAL ONE (11:41)
--- NOTE | 2021-11-19 14:03 | Operative Report ---
Post Operative Report Pre & Post Diagnosis Operation Date: 11/15/21 11:25 Pre-Op Diagnosis: osteomyelitis left foot Post-Op Diagnosis: osteomyelitis left foot Operation Date: 11/19/21 09:05 Pre-Op Diagnosis: Diabetic ulcer of left foot Post-Op Diagnosis: Diabetic ulcer of left foot I identified the patient and participated in the time-out.: Yes Procedure Operation Date: 11/15/21 11:25 Actual Procedures p Left Lower Extremity Angiogram, ultrasound localization of right femoral arter y, mechanical closure of right femoral artery moderate sedation 1050- 1143(Right) - Floyd Eason MD Operation Date: 11/19/21 09:05 Actual Procedures p Left Femoral to Anterior Tibial Bypass with Cadaver Vein and Embolization of side branch of the bypass(Left) - Floyd Eason MD Surgeon Floyd Eason MD Mechanical Striper Jacinto,PAC Estimated Blood Loss 150 Findings Consistent with Post-Op Diagnosis Specimens none Anesthesia Type General Complications none Disposition Accompanied Patient To Recovery: No Disposition: Recovery Room Indications This is a 66-year-old gentleman who has an occlusion of his femoral to posterior tibial bypass. The occlusion occurs at the knee distally. The proximal portion of the graft is kept open with the fistula. Extension of the bypass to the anterior tibial artery was recommended. He also has a large branch in the proximal portion of the bypass which needs to be embolized. I have discussed the risks options and benefits of the procedure with the patient. The patient understands the risks options and benefits and agrees to the procedure. Description of Procedure The patient was taken the operating room placed in supine position. The left lower extremity was prepped and draped in a sterile manner. This was done after general anesthesia was accomplished. The patient was then identified and a timeout was performed. A longitudinal incision was made over the distal end of the femoral to distal bypass which was previously placed. Dissection was carried down to where the distal portion of the proximal graft was identified. There is good pulsation at that area. The graft itself was soft. Longitudinal incision was then made over the anterior compartment in the upper third of the calf. This is carried down through the anterior tibial artery was identified. It was good caliber and very usable for anastomosis. A tunnel was then made through the interosseous membrane and brought out through the popliteal fossa on the medial side. The cadaver vein was then passed down through the tunnel. The patient was heparinized at that time. The cadaver vein was reversed in the usual fashion. The distal end of the previous bypass was then clamped. Longitudinal venotomy was performed. An end to end anastomosis was accomplished between the previous bypass and the cadaver vein with a 6-0 Prolene suture. Once this was done clamps were removed. There was good flow through the distal end of the graft. No kinking or twisting was noted. The anterior tibial artery was then opened longitudinally and a flow Rester was placed. The arteriotomy was then completed. The vein was then beveled in the appropriate length and fashion. The anterior tibial artery was of good caliber and fairly soft and usable. An end-to-side anastomosis was then accomplished using a 6-0 Prolene suture in usual vascular fashion. Prior to completing the closure backbleeding and forward bleeding was allowed to occur. Final few sutures in place and securely tied. Clamps were then removed. Excellent flow was seen distally. There was an excellent Doppler signal heard at the foot. We then punctured the previous graft and the incision site and placed in a 5 [place] sheath. 035 guidewire was inserted followed by a 5 [place] glide cath. The side branch was identified coming off the proximal portion of the graft. The glide catheter was inserted into the branch. Wire was removed. Positioning was confirmed. We then inserted a 6 mm coil. The coil deployed nicely however the end the tail end of the coil protruding into the lumen. We then reinserted an 018 wire. We used a 6 x 2.5 Viabahn to cover the protruding portion of the stent. This was then ballooned with a 6 x 4 balloon. Good flow was seen on the completion angiogram. No narrowing was noted. The sheath was then pulled and a 6-0 Prolene was used to close the puncture site. Adequate stasis was then obtained of both wounds. Wounds were then closed in usual fashion using running 3-0 Vicryl suture for the subcutaneous layers and sharri for the skin. Sterile dressings were applied to the wound. Again there was excellent Doppler signals heard in the foot.The patient left the operation room in satisfactory condition and tolerated the procedure well. All needle and sponge counts were correct at the end of the procedure. Bekah Rodriges Pac assisted due to lack of resident availability and was necessary for positioning, draping, retraction, wound closure deep layers, subcutaneous tissue, and skin closure and was necessary for assisting with the case. I attest to the content of the Intraoperative Record and any orders documented therein. Any exceptions are noted below.
[2021-11-19] MEDS ORDERED: VISIPAQUE IV ONE (14:04)
--- NOTE | 2021-11-19 14:04 | Post Operative Brief Note ---
Immediate Post Op Note v1 Date of Surgery November 19, 2021 Pre & Post Diagnosis Operation Date: 11/15/21 11:25 Pre-Op Diagnosis: osteomyelitis left foot Post-Op Diagnosis: osteomyelitis left foot Operation Date: 11/19/21 09:05 Pre-Op Diagnosis: Diabetic ulcer of left foot Post-Op Diagnosis: Diabetic ulcer of left foot I identified the patient and participated in the time-out.: Yes Procedure Operation Date: 11/15/21 11:25 Actual Procedures p Left Lower Extremity Angiogram, ultrasound localization of right femoral artery, mechanical closure of right femoral artery moderate sedation 1050- 1143(Right) - Floyd Eason MD Operation Date: 11/19/21 09:05 Actual Procedures p Left Femoral to Anterior Tibial Bypass with Cadaver Vein and Embolization of side branch of the bypass(Left) - Floyd Eason MD Surgeon Floyd Eason MD Stone Finisher Jacinto,PAC Estimated Blood Loss 150 Findings Consistent with Post-Op Diagnosis Drains Rodgers Catheter (inserted without difficulty.) Anesthesia Type General Complications none Disposition Accompanied Patient To Recovery: No Disposition: Recovery Room
--- NOTE | 2021-11-19 14:41 | Anesthesiology Progress Note ---
Date of Service November 19, 2021 Anesthesia Post Procedure Vital Signs Vital Signs: Temp Pulse Pulse Resp BP BP Pulse Ox 11/19/21 14:25 73 18 140/74 100 11/19/21 14:14 37.1 C 70 12 131/65 100 11/19/21 08:58 36.9 C 71 18 146/72 H 96 11/19/21 08:22 36.9 C 69 20 138/81 95 11/18/21 22:52 36.9 C 76 18 149/78 H 95 11/18/21 15:00 37.0 C 69 18 125/94 96 Pain Intensity Left Foot: Pain Intensity: 3 Transfer of Care Handoff Completed per policy Notes Mental Status: alert / awake / arousable and participated in evaluation Patient Amnestic to Procedure: Yes Nausea / Vomiting: adequately controlled Pain: adequately controlled Airway Patency, RR, SpO2: stable & adequate BP & HR: stable & adequate Hydration State: stable & adequate Anesthetic Complications: no major complications apparent and Pt Satisfied with anesthetic care
--- NOTE | 2021-11-19 15:10 | Pharmacy Report ---
Pharmacy Glycemic Short Note 2 - Date of Service November 19, 2021 - Glycemic Short BSG Results (Last 24 hours): 11/18/21 11/18/21 11/18/21 16:37 19:39 19:57 Glucose POC Glucose 128 H 57 L* 76 11/18/21 11/18/21 11/19/21 21:01 23:57 05:58 Glucose POC Glucose 129 H 115 H 213 H 11/19/21 11/19/21 11/19/21 06:02 07:26 08:18 Glucose 208 H POC Glucose 208 H 194 H 11/19/21 11/19/21 10:57 14:20 Glucose POC Glucose 216 H 235 H OUTPATIENT ANTIDIABETIC REGIMEN: * Novolog insulin pump: ~53 units/day * Basal: 1.65 units/hr (39.6 units/day) * Correction Factor: 30 mg/dL/unit * Nutritional / Prandial insulin per carb ratio of 1 unit per 6 grams CHO consumed * HbA1c: 8.0% (11/11/21) ASSESSMENT: 11/19 * Patient NPO today for vascular surgery * Lantus dose ordered prior to surgery (patient has type-1 diabetes), unfortunately this dose was never given * Dose ordered postoperatively and will utilize overnight check this evening to cover additional needs 11/18 * BSGs yesterday of 179, 239, 67, and 129 mg/dL, fasting BSG inexplicably elevated this morning at 273 mg/dL * Given hypoglycemia at dinnertime, will loosen CF at lunchtime * Not overreacting to hyperglycemia at lunch today, as BSGs consistently come down at dinnertime and patient will be NPO after midnight for vascular procedure tomorrow morning 11/16 * Mr Chowdhury was NPO yesterday for vascular intervention. He has resumed his diet post-op. Pt will likely become NPO again night for procedure Monday. Will follow closely. * Lunch BSG tends to be elevated, so will tighten carb coverage with breakfast only. * Lantus dose increased slightly for tomorrow, as fasting BSG above goal. 11/14 * Patient's BSGs yesterday were [phone] and overnight were 73-167 mg/dL. Fasting today is 222 mg/dL. * Elevated BSG at dinnertime secondary to pump transition plus patient's own bolus at lunchtime. * Will give Lantus 38 units this morning to allow for some Lantus overlap and to decrease BSGs further. * Novolog as per previous as it does appear to have corrected patient appropriately. 11/13 * Patient's BSGs yesterday were [phone]. Patient received an 8 unit bolus yesterday evening for BSG of 461. * Patient corrected himself sporadically overnight. * Fasting today was 263 mg/dL. Lunch BSG was 326. * Nurse discussed with patient that due to high BSGs, it was prudent to remove insulin pump and manage basal/bolus. He is comfortable with this. Already gave lunch coverage. * Lantus 38 units x 1 and remove insulin pump 2 hours after this given. * Novolog based upon previous hospitalization. Background * Mr Chowdhury is a 66yo type 1 diabetic male, admitted with worsening DM foot ulcer/infection. * On admission last night, insulin pump was to be held and pt was initiated on SQ basal/bolus insulin. * BSGs have been on the low side today. When CDE visited pt today, he was found to still have his insulin pump running. SQ insulin orders stopped. * Will attempt to allow pt to manage himself with his insulin pump as long as BSGs are appropriate. * If BSGs become unstable, will convert back to SQ insulin. PLAN FOR INPATIENT GLYCEMIC CONTROL: * Basal insulin * Lantus 30 units SC today (~80% of prior dose) * Reassess in AM * Bolus insulin - * NovoLog per scale ACHS or Q6hrs while NPO * Goal Range: Low 110 mg/dL - High 140 mg/dL * Correction Factor: 25 mg/dL/unit with breakfast, 30 mg/dL/unit with lunch, dinner, HS * Nutritional / Prandial insulin per carb ratio of 1 unit per 4 grams CHO consumed with breakfast, 1 unit per 5 grams CHO consumed with lunch/dinner/HS
[2021-11-19] MEDS ORDERED: MoRPHine SULFATE 2 MG/ML CARP IV PRN (15:21)
[2021-11-19] MEDS ORDERED: MoRPHine SULFATE 4 MG/ML 1 ML CARP\\VIAL IV PRN (15:22)
[2021-11-19] MEDS: SODIUM CHLORIDE 0.9% 500 ML IV SCH ×2 (15:32→16:26)
[2021-11-19] MEDS: HEPARIN SODIUM/DEXTROSE 25,000 UNITS/500 ML BAG IV SCH (15:34)
[2021-11-19] MEDS: DAPTOmycin 425 MG in SYRINGE 0 ML IV SCH (15:46)
[2021-11-19] MEDS: CYANOCOBALAMIN 1000 MCG/ML VIAL IM SCH (18:42)
[2021-11-19] MEDS: oxyCODONE HCL IR 5 MG TAB (IMMEDIATE RELEASE) PO PRN (23:02)
[2021-11-20] MEDS: INSULIN ASPART PER UNIT SC SCH ×7 (00:50→21:48)
[2021-11-20] MEDS ORDERED: INSULIN ASPART PER UNIT SC SCH (02:00)
[2021-11-20] MEDS: LEVOTHYROXINE SODIUM 175 MCG TABLET PO SCH (05:48)
[2021-11-20] MEDS ORDERED: Nursing to Pharmacy Communication SCH (07:00)
[2021-11-20 07:01] LABS: Hematocrit (blood only) 29.7 % (42-52); Hemoglobin 9.6 g/dL (14.0-18.0); Mean Corpuscular Hemoglobin 28.4 pg (25-34); Mean Corpuscular Hgb Conc 32.3 g/dL (32-36); Mean Corpuscular Volume 87.9 fL (80-100); Mean Platelet Volume 9.2 fL (7.4-10.4); Platelet Count 387 K/uL (130-400); RDW Coefficient of Variation 14.7 % (11.5-14.5); RDW Standard Deviation 46.7 fL (36.4-46.3); Red Blood Count 3.38 M/uL (4.7-6.1); White Blood Count 13.58 K/uL (4.8-10.8)
--- NOTE | 2021-11-20 07:10 | Hospitalist Progress Note ---
Date of Service November 20, 2021 Assessment & Plan (1) Diabetic ulcer of left foot: Plan: LLE erythema and edema that goes slightly above malleolus with several skin fissures, necrotic ulcerated wound on 1.) medial aspect of L great toe with eschar, 2.) medial aspect of third toe with some drainage and eschar, 3.) on upper lateral border of left sole with eschar, and 4.) on heel of left foot with necrotic tissue. Pulses intact, extremity without pallor or decreased temperature, pt has diminished sensation at baseline, but has some sensation along medial and lateral aspect of foot. Minimal pain. XR - soft tissue swelling with no acute bony abnormality identified. XR Tib/fib with old healed fractures of the distal tibia and fibula with post-traumatic deformity present; OA Heparin gtt for U/S w/ complete occlusion of the [place] superficial femoral and popliteal arteries; bypass graft extending from superficial femoral artery to the posterior tibial artery with near complete to complete occlusion below the knee; no flow shown within the peroneal artery; anterior and posterior tibial arteries appear patent Wound Cx - Pseudomonas and S. Aureus (MSSA) Wound RN consulted Vascular on consult * s/p Left Lower Extremity Angiogram, ultrasound localization of right femoral artery, mechanical closure of right femoral artery moderate sedation 1050- 1143(Right) - Floyd Eason MD on 11/15. EBL 15cc. * POD# 1 s/p Left Femoral to Anterior Tibial Bypass with Cadaver Vein and Embolization of side branch of the bypass(Left) - Floyd Eason MD 11/19. EBL 150cc * Good pulses, continue to doppler Zosyn, Dapto continued, Dapto added back 11/18 for elevated WBC and prior hx VRE and will continue such. Hold statin while on Dapto WBC elevated, 2nd to stress/surgery and atelectasis. Slight elevation in temp but denied fever/chills. Asked RN to provide IS and will continue to monitor Hgb stable-- acute blood loss anemia from surgery/dilutional from IVF Continue to monitor --> Orthopedics on consult * Plans for amputation early next week, will re-eval on Monday when Dr Soto back in town and tentatively planning for surgery on Monday (2) PVD (peripheral vascular disease): Plan: -B/L iliac artery stents (2014), R common/external iliac (2018), R common femora l endarterectomy (11/2018) with bovine patch. Left femoral to PT composite bypass graft (06/2020). as above, s/p angio , now s/p L fem-anterior tibial bypass with Dr Eason Statin on hold while on dapto, CK wnl (3) Diabetes mellitus type 1: Plan: Uncontrolled, has insulin pump outside of here and typically when off usual pump does have fluctuations BSG 70s this morning, but overall much improved from days prior Pharmacy on consult and managing (4) CAD (coronary artery disease): Plan: S/P CABG x 1 (2015). Aortic Stenosis s/p porcine AV No chest pain today. Continue DAPT w/ ASA and Plavix, and metoprolol. Discussed that all three can remain for vascular procedure -- will need to talk with ortho in regards to anti-platelets for ortho surgery -- Would like to avoid triple therapy Hold statin for Dapto as above No CP/SOb post-operatively (5) Clostridium difficile colitis: Plan: H/O -- previously on slow long taper of po Vanc last admission Has occassional constipation On probiotic while on abx therapy --> had liquid stool earlier in stay, black, but on Fe BID Recent c-scope w/o abnormality cdiff negative earlier in stay, retest if occurs again (6) Hypertension: Plan: Patient initially hypotensive in ED and responded to fluid bolus - BPs acceptable Continue Metoprolol 12.5 mg BID (7) Dyslipidemia: Plan: Statin now held given Dapto as above (8) Hypothyroidism: Plan: Continue levothyroxine. (9) Diabetic nephropathy associated with type 1 diabetes mellitus: Plan: Documented hx of CKD stage 3, Cr and BUN appear wnl today. Continue daily iron, calcitrol, and potassium supplement. Renally dose all medications, avoid nephrotoxic agents. Cr 0.70 , stable (10) Hyponatremia: Plan: Asymptomatic at 133, no further IVF. Possible some excess fluid from 1L provided post-op but otherwise stable and will avoid further IVF for now and monitor BMP in AM (11) Folate deficiency: Plan: Continue folic acid supplementation. (12) Below-knee amputation of right lower extremity: Plan: June 2021. No acute issues. Follows with Dr. Soto --> has prosthetic in room, hoping to be able to use some as had been in hospital much since he got and wants to get used to using it Daughter Loulou ([phone] - number given by patient). Patient has been updating her and is a good historian Plan: continue to monitor, plans for amputation early next week Admission and Anticipated Discharge Date Admission Date: November 10, 2021 Supervising Physician Co-Signing Physician Notes Attending Attestation - Chart reviewed in detail, care plan d/w PA Rosey Preston. I agree w/ the perez components of her documentation. Severe PAD. Complex infections of Left foot 2nd pseudomonas & MSSA. Cont IV abx. POD #1 - s/pLeft Femoral to Anterior Tibial Bypass by Dr Eason for his severe PAD. Dr Soto to perform amputation next week - either left foot TMA or left leg BKA - uncertain at this time. Isaac Segovia MD Subjective Patient evaluated this morning. Doing well. Pain controlled currently. Pulses strong with doppler. Just worked with therapy and dangled feet at edge of bed. Able to lift leg off bed, pain to calf from site of incision but dressings c/d/i. No fever, chills, chest pain, shortness of breath, abdominal pain nausea or vomiting. BM documented as 3/10 but he doesn't recall having one. Passing gas, and will have RN give some mag citrate and monitor. Questions/concerns addressed at this time. Review of Systems Review of Systems: All systems reviewed & are unremarkable except as noted in HPI & below Physical Exam Physical Exam: General : WN/WD male sitting up in bed, NAD HEENT: head normocephalic, atraumatic, hearing intact, mm less dry Resp: CTAB, no w/c/r, on room air, last SpO2 97% CV: RRR, no m/r/g, LLE edema post-operatively, calves supple and slightly tender at site of incision GI: +BS, soft, non-tender MSK: R BKA with scab to anterior midline, no abscess/fluctuance/erythema or tenderness to palpation LLE with expected edema, surgical dressings c/d/i, tender to palpation Skin: L foot with gangrenous great toe (more eschar/darkened appearance than earlier in week but not as bad as yesterday, non-tender), prior amputation of 2nd digit, 3rd digit with eschar as distal aspect, 4th digit also necrotic (worsening from days prior), ulceration to plantar aspect 5th digit, R heel also with eschar/ulceration and tenderness to palpation Prior buttocks wound not observed as patient to remain in bed -- asked RN to turn/reposition and alert of any new findings (prior buttocks with ecchymosis, pressure sore, small opening/tear near superior aspect of midline intergluteal cleft, tender to palpation, no visible or expressible drainage, covered with barrier cream) Neuro: speech clear/appropriate, no focal deficits, answering questions appropriately Results & Data Results & Data ([facility]) Vital Signs (Past 12 Hours) Vital Signs Temp Pulse Pulse Resp BP BP Pulse Ox 11/20/21 03:15 37.6 C H 78 18 120/52 L 94 11/20/21 02:15 77 12 11/20/21 02:00 79 16 11/20/21 01:45 79 20 11/20/21 01:30 79 20 11/20/21 01:15 80 22 11/20/21 01:00 81 20 11/20/21 00:45 79 19 11/20/21 00:30 79 21 11/20/21 00:15 81 19 11/20/21 00:00 81 20 11/19/21 23:45 82 19 11/19/21 23:30 79 21 11/19/21 23:15 80 19 11/19/21 23:00 83 17 11/19/21 22:53 36.5 C 85 85 14 136/58 L 136/58 L 93 11/19/21 22:45 90 21 95 11/19/21 22:30 83 20 93 11/19/21 22:18 83 11/19/21 22:15 83 15 94 11/19/21 22:00 83 19 125/45 L 94 11/19/21 21:45 91 H 19 95 11/19/21 21:30 80 18 94 11/19/21 21:15 82 21 95 11/19/21 21:00 84 21 119/52 L 94 11/19/21 20:45 84 18 95 11/19/21 20:30 85 19 97 11/19/21 20:15 88 23 96 11/19/21 20:00 89 87 18 133/56 L 133/56 L 97 11/19/21 19:47 85 20 132/55 L 96 11/19/21 19:45 86 22 68/39 L 98 11/19/21 19:30 85 26 H 138/45 L 97 11/19/21 19:21 37.0 C 79 16 109/50 L 95 11/19/21 19:20 79 17 109/50 L 97 11/19/21 19:15 77 19 119/49 L 95 Laboratory Results 11/20/21 11/20/21 11/20/21 Range/Units 07:20 07:19 06:20 WBC (4.8-10.8) K/uL RBC (4.7-6.1) M/uL Hgb (14.0-18.0) g/dL Hct (42-52) % MCV (80-100) fL MCH (25-34) pg MCHC (32-36) g/dL RDW Std Deviation (36.4-46.3) fL RDW Coeff of Chan (11.5-14.5) % Plt Count (130-400) K/uL MPV (7.4-10.4) fL Immature Gran % (Auto) % Neut % (Auto) % Lymph % (Auto) % [place] % (Auto) % Eos % (Auto) % Baso % (Auto) % Neut # (Auto) (1.4-6.5) K/uL Lymph # (Auto) (1.2-3.4) K/uL [place] # (Auto) (0.11-0.59) K/uL Eos # (Auto) (0-0.5) K/uL Baso # (Auto) (0-0.2) K/uL Immature Gran # (Auto) (0.00-0.02) K/uL Sodium 133 L (136-145) mmol/L Potassium 3.9 (3.5-5.1) mmol/L Chloride 101 (98-107) mmol/L Carbon Dioxide 27 (21-32) mmol/L Anion Gap 5 (3-11) BUN 10 (6-23) mg/dl Creatinine 0.70 (0.6-1.4) mg/dl Est Cr Clr Drug Dosing 103.1 ml/min Est GFR ( Amer) 115.6 ml/min Est GFR (Non-Af Amer) 99.7 ml/min BUN/Creatinine Ratio 14.3 (10-20) Glucose 75 (70-99(Fasting)) mg/dl POC Glucose 75 69 L* (70-99) mg/dl Calcium 7.8 L (8.5-10.1) mg/dl 11/20/21 11/20/21 11/20/21 Range/Units 06:20 02:09 00:09 WBC 13.58 H (4.8-10.8) K/uL RBC 3.38 L (4.7-6.1) M/uL Hgb 9.6 L (14.0-18.0) g/dL Hct 29.7 L (42-52) % MCV 87.9 (80-100) fL MCH 28.4 (25-34) pg MCHC 32.3 (32-36) g/dL RDW Std Deviation 46.7 H (36.4-46.3) fL RDW Coeff of Chan 14.7 H (11.5-14.5) % Plt Count 387 (130-400) K/uL MPV 9.2 (7.4-10.4) fL Immature Gran % (Auto) 0.3 % Neut % (Auto) 65.5 % Lymph % (Auto) 17.0 % [place] % (Auto) 13.8 % Eos % (Auto) 3.1 % Baso % (Auto) 0.3 % Neut # (Auto) 8.90 H (1.4-6.5) K/uL Lymph # (Auto) 2.31 (1.2-3.4) K/uL [place] # (Auto) 1.87 H (0.11-0.59) K/uL Eos # (Auto) 0.42 (0-0.5) K/uL Baso # (Auto) 0.04 (0-0.2) K/uL Immature Gran # (Auto) 0.04 H (0.00-0.02) K/uL Sodium (136-145) mmol/L Potassium (3.5-5.1) mmol/L Chloride (98-107) mmol/L Carbon Dioxide (21-32) mmol/L Anion Gap (3-11) BUN (6-23) mg/dl Creatinine (0.6-1.4) mg/dl Est Cr Clr Drug Dosing ml/min Est GFR ( Amer) ml/min Est GFR (Non-Af Amer) ml/min BUN/Creatinine Ratio (10-20) Glucose (70-99(Fasting)) mg/dl POC Glucose 113 H 127 H (70-99) mg/dl Calcium (8.5-10.1) mg/dl 11/19/21 11/19/21 11/19/21 Range/Units 20:16 17:06 14:20 WBC (4.8-10.8) K/uL RBC (4.7-6.1) M/uL Hgb (14.0-18.0) g/dL Hct (42-52) % MCV (80-100) fL MCH (25-34) pg MCHC (32-36) g/dL RDW Std Deviation (36.4-46.3) fL RDW Coeff of Chan (11.5-14.5) % Plt Count (130-400) K/uL MPV (7.4-10.4) fL Immature Gran % (Auto) % Neut % (Auto) % Lymph % (Auto) % [place] % (Auto) % Eos % (Auto) % Baso % (Auto) % Neut # (Auto) (1.4-6.5) K/uL Lymph # (Auto) (1.2-3.4) K/uL [place] # (Auto) (0.11-0.59) K/uL Eos # (Auto) (0-0.5) K/uL Baso # (Auto) (0-0.2) K/uL Immature Gran # (Auto) (0.00-0.02) K/uL Sodium (136-145) mmol/L Potassium (3.5-5.1) mmol/L Chloride (98-107) mmol/L Carbon Dioxide (21-32) mmol/L Anion Gap (3-11) BUN (6-23) mg/dl Creatinine (0.6-1.4) mg/dl Est Cr Clr Drug Dosing ml/min Est GFR ( Amer) ml/min Est GFR (Non-Af Amer) ml/min BUN/Creatinine Ratio (10-20) Glucose (70-99(Fasting)) mg/dl POC Glucose 203 H 268 H 235 H (70-99) mg/dl Calcium (8.5-10.1) mg/dl 11/19/21 Range/Units 10:57 WBC (4.8-10.8) K/uL RBC (4.7-6.1) M/uL Hgb (14.0-18.0) g/dL Hct (42-52) % MCV (80-100) fL MCH (25-34) pg MCHC (32-36) g/dL RDW Std Deviation (36.4-46.3) fL RDW Coeff of Chan (11.5-14.5) % Plt Count (130-400) K/uL MPV (7.4-10.4) fL Immature Gran % (Auto) % Neut % (Auto) % Lymph % (Auto) % [place] % (Auto) % Eos % (Auto) % Baso % (Auto) % Neut # (Auto) (1.4-6.5) K/uL Lymph # (Auto) (1.2-3.4) K/uL [place] # (Auto) (0.11-0.59) K/uL Eos # (Auto) (0-0.5) K/uL Baso # (Auto) (0-0.2) K/uL Immature Gran # (Auto) (0.00-0.02) K/uL Sodium (136-145) mmol/L Potassium (3.5-5.1) mmol/L Chloride (98-107) mmol/L Carbon Dioxide (21-32) mmol/L Anion Gap (3-11) BUN (6-23) mg/dl Creatinine (0.6-1.4) mg/dl Est Cr Clr Drug Dosing ml/min Est GFR ( Amer) ml/min Est GFR (Non-Af Amer) ml/min BUN/Creatinine Ratio (10-20) Glucose (70-99(Fasting)) mg/dl POC Glucose 216 H (70-99) mg/dl Calcium (8.5-10.1) mg/dl PG Care Time/CCT Total # of Minutes Spent Total Time Spent with Patient: Total time spent is greater than 50% in coordination of care (as documented) at patient's floor/unit and/or counseling patient: Coding Level of Care Code 17826 Subseq Hosp Care Lvl 2 Diagnoses Diabetic ulcer of left foot E11.621; L97.529 PVD (peripheral vascular disease) I73.9 Diabetes mellitus type 1 E10.9 CAD (coronary artery disease) I25.10 Associated angina: without angina Coronary Disease-Associated Artery/Lesion type: [place] artery [place] vs. transplanted heart: [place] heart Clostridium difficile colitis A04.72 Hypertension I10 Hypertension type: unspecified Dyslipidemia E78.5 Hypothyroidism E03.9 Hypothyroidism type: unspecified Diabetic nephropathy associated with type 1 diabetes mellitus E10.21 Hyponatremia E87.1 Folate deficiency E53.8 Below-knee amputation of right lower extremity S88.111A (1) CAD (coronary artery disease) Associated angina: without angina Coronary Disease-Associated Artery/Lesion type: [place] artery [place] vs. transplanted heart: [place] heart Qualified Code(s): I25.10 - Atherosclerotic heart disease of [place] coronary artery without angina pectoris (2) Hypothyroidism Hypothyroidism type: unspecified Qualified Code(s): E03.9 - Hypothyroidism, u nspecified (3) Hypertension Hypertension type: unspecified Qualified Code(s): I10 - Essential (primary) hypertension
[2021-11-20 07:24] LABS: BUN Creatinine Ratio 14.3 (10-20); Calcium 7.8 mg/dl (8.5-10.1); Creatinine Clr Calc Pharmacy 103.1 ml/min; Est GFR (African American) 115.6 ml/min; Est GFR (Non-African American) 99.7 ml/min; Potassium 3.9 mmol/L (3.5-5.1)
[2021-11-20 07:33] LABS: Basophils # (auto) 0.04 K/uL (0-0.2); Basophils % (auto) 0.3 %; Eosinophils # (auto) 0.42 K/uL (0-0.5); Eosinophils % (auto) 3.1 %; Immature Granulocytes # (auto) 0.04 K/uL (0.00-0.02); Immature Granulocytes % (auto) 0.3 %; Lymphocytes # (auto) 2.31 K/uL (1.2-3.4); Monocytes # (auto) 1.87 K/uL (0.11-0.59); Monocytes % (auto) 13.8 %; Neutrophils % (auto) 65.5 %
[2021-11-20] MEDS: PIPERACILLIN/TAZOBACTAM 3.375 GM in DEXTROSE 5% 100 ML IV SCH ×2 (07:34→15:49)
[2021-11-20] MEDS: FERROUS SULFATE 325 MG TAB PO SCH ×2 (07:34→21:48)
[2021-11-20] MEDS: METOPROLOL TARTRATE 25 MG TAB PO SCH ×2 (07:34→21:49)
[2021-11-20] MEDS: FOLIC ACID 1 MG TAB PO SCH (07:35)
[2021-11-20] MEDS: CLOPIDOGREL BISULFATE 75 MG TAB PO SCH (07:35)
[2021-11-20] MEDS: ADVANCED PROBIOTIC 1250 MG CAPSULE PO SCH (07:35)
[2021-11-20] MEDS: CYANOCOBALAMIN 1000 MCG/ML VIAL IM SCH (07:35)
[2021-11-20] MEDS: PANTOprazole 40 MG TAB PO SCH (07:35)
[2021-11-20] MEDS: CALCITRIOL 0.25 MCG CAPSULE PO SCH (07:35)
[2021-11-20] MEDS: ASPIRIN 81 MG ECTAB PO SCH (07:35)
[2021-11-20] MEDS ORDERED: INSULIN GLARGINE SOLOSTAR 100 UNITS/ML 3 ML PEN SC SCH (09:00)
[2021-11-20] MEDS ORDERED: MAGNESIUM CITRATE 296 ML/BTL PO ONE ×2 (10:57→11:17)
--- NOTE | 2021-11-20 14:01 | Pharmacy Report ---
Pharmacy Glycemic Short Note 2 - Date of Service November 20, 2021 - Glycemic Short BSG Results (Last 24 hours): 11/19/21 11/19/21 11/19/21 10:57 14:20 17:06 Glucose POC Glucose 216 H 235 H 268 H 11/19/21 11/20/21 11/20/21 20:16 00:09 02:09 Glucose POC Glucose 203 H 127 H 113 H 11/20/21 11/20/21 11/20/21 06:20 07:19 07:20 Glucose 75 POC Glucose 69 L* 75 11/20/21 11:19 Glucose POC Glucose 101 H OUTPATIENT ANTIDIABETIC REGIMEN: * Novolog insulin pump: ~53 units/day * Basal: 1.65 units/hr (39.6 units/day) * Correction Factor: 30 mg/dL/unit * Nutritional / Prandial insulin per carb ratio of 1 unit per 6 grams CHO consumed * HbA1c: 8.0% (11/11/21) ASSESSMENT: 11/20 * POD1, type 1 DM Diet * Blood sugars well controlled, borderline low blood sugar this morning, pt had 30 units of basal yesterday, reduce to 25 units today * No further changes, pt remains on IV Zosyn + Dapto 11/19 * Patient NPO today for vascular surgery * Lantus dose ordered prior to surgery (patient has type-1 diabetes), unfortunately this dose was never given * Dose ordered postoperatively and will utilize overnight check this evening to cover additional needs 11/18 * BSGs yesterday of 179, 239, 67, and 129 mg/dL, fasting BSG inexplicably elevated this morning at 273 mg/dL * Given hypoglycemia at dinnertime, will loosen CF at lunchtime * Not overreacting to hyperglycemia at lunch today, as BSGs consistently come down at dinnertime and patient will be NPO after midnight for vascular procedure tomorrow morning 11/16 * Mr Chowdhury was NPO yesterday for vascular intervention. He has resumed his diet post-op. Pt will likely become NPO again night for procedure Monday. Will follow closely. * Lunch BSG tends to be elevated, so will tighten carb coverage with breakfast only. * Lantus dose increased slightly for tomorrow, as fasting BSG above goal. 11/14 * Patient's BSGs yesterday were [phone] and overnight were 73-167 mg/dL. Fasting today is 222 mg/dL. * Elevated BSG at dinnertime secondary to pump transition plus patient's own bolus at lunchtime. * Will give Lantus 38 units this morning to allow for some Lantus overlap and to decrease BSGs further. * Novolog as per previous as it does appear to have corrected patient appropriately. 11/13 * Patient's BSGs yesterday were [phone]. Patient received an 8 unit bolus yesterday evening for BSG of 461. * Patient corrected himself sporadically overnight. * Fasting today was 263 mg/dL. Lunch BSG was 326. * Nurse discussed with patient that due to high BSGs, it was prudent to remove insulin pump and manage basal/bolus. He is comfortable with this. Already gave lunch coverage. * Lantus 38 units x 1 and remove insulin pump 2 hours after this given. * Novolog based upon previous hospitalization. Background * Mr Chowdhury is a 66yo type 1 diabetic male, admitted with worsening DM foot ulcer/infection. * On admission last night, insulin pump was to be held and pt was initiated on SQ basal/bolus insulin. * BSGs have been on the low side today. When CDE visited pt today, he was found to still have his insulin pump running. SQ insulin orders stopped. * Will attempt to allow pt to manage himself with his insulin pump as long as BSGs are appropriate. * If BSGs become unstable, will convert back to SQ insulin. PLAN FOR INPATIENT GLYCEMIC CONTROL: * Basal insulin * Lantus 25 units SC daily * Bolus insulin * NovoLog per scale ACHS or Q6hrs while NPO * Goal Range: Low 110 mg/dL - High 140 mg/dL * Correction Factor: 30 mg/dL/unit with breakfast * Nutritional / Prandial insulin per carb ratio of 1 unit per 5 grams CHO c onsumed
[2021-11-20] MEDS ORDERED: MAGNESIUM CITRATE 296 ML/BTL PO PRN (14:12)
[2021-11-20] MEDS: DAPTOmycin 425 MG in SYRINGE 0 ML IV SCH (14:20)
[2021-11-20] MEDS: POTASSIUM CHLORIDE CRTAB 20 MEQ TABCR PO SCH (21:55)
[2021-11-21] MEDS: PIPERACILLIN/TAZOBACTAM 3.375 GM in DEXTROSE 5% 100 ML IV SCH ×4 (00:29→23:40)
[2021-11-21] MEDS: LEVOTHYROXINE SODIUM 175 MCG TABLET PO SCH (05:37)
[2021-11-21 06:34] LABS: Hematocrit (blood only) 29.3 % (42-52); Hemoglobin 9.6 g/dL (14.0-18.0); Mean Corpuscular Hemoglobin 28.7 pg (25-34); Mean Corpuscular Hgb Conc 32.8 g/dL (32-36); Mean Corpuscular Volume 87.5 fL (80-100); Mean Platelet Volume 9.1 fL (7.4-10.4); Platelet Count 365 K/uL (130-400); RDW Coefficient of Variation 14.6 % (11.5-14.5); Red Blood Count 3.35 M/uL (4.7-6.1); White Blood Count 13.73 K/uL (4.8-10.8)
[2021-11-21 07:14] LABS: BUN Creatinine Ratio 14.3 (10-20); Calcium 8.9 mg/dl (8.5-10.1); Creatinine Clr Calc Pharmacy 114.6 ml/min; Est GFR (African American) 120.7 ml/min; Est GFR (Non-African American) 104.1 ml/min; Magnesium 1.7 mg/dl (1.7-2.4); Potassium 4.5 mmol/L (3.5-5.1)
[2021-11-21] MEDS ORDERED: INSULIN GLARGINE SOLOSTAR 100 UNITS/ML 3 ML PEN SC SCH (07:30)
[2021-11-21] MEDS ORDERED: FUROSEMIDE 20 MG TAB PO ONE (07:31)
--- NOTE | 2021-11-21 07:36 | Hospitalist Progress Note ---
Date of Service November 21, 2021 Assessment & Plan (1) Diabetic ulcer of left foot: Plan: LLE erythema and edema that goes slightly above malleolus with several skin fissures, necrotic ulcerated wound on 1.) medial aspect of L great toe with eschar, 2.) medial aspect of third toe with some drainage and eschar, 3.) on upper lateral border of left sole with eschar, and 4.) on heel of left foot with necrotic tissue. XR - soft tissue swelling with no acute bony abnormality identified. Tib/fib with old healed fractures of the distal tibia and fibula with post-traumatic deformity present; OA Heparin gtt for complete occlusion of the [place] superficial femoral and popliteal arteries; bypass graft extending from superficial femoral artery to the posterior tibial artery with near complete to complete occlusion below the knee; no flow shown within the peroneal artery; anterior and posterior tibial arteries appear patent -->discontinued 11/[address] on Heparin SQ for DVT prophylaxis Wound Cx - Pseudomonas and S. 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 Did have slight temp 37.8C, suspect atelectasis and encouraged IS. Checking cdiff as well given loose stool but did reported soft/formed this morning Vascular on consult s/p Left Lower Extremity Angiogram, ultrasound localization of right femoral artery, mechanical closure of right femoral artery moderate sedation [id number](Right) - Floyd Eason MD on 11/15. EBL 15cc. POD# 2 s/p Left Femoral to Anterior Tibial Bypass with Cadaver Vein and Embolization of side branch of the bypass(Left) - Floyd Eason MD 11/19. EBL 150cc * Good pulses, continue to Doppler * Hgb unchanged on repeat -- 9.6. Acute blood loss anemia from surgery/IVF during bonifacio-operative period. Orthopedics on consult and plans for amputation early next week, will re-eval on Monday when Dr Soto back in town and tentatively planning for surgery on Monday Wound RN consulted and following Continue to monitor (2) PVD (peripheral vascular disease): Plan: -B/L iliac artery stents (2014), R common/external iliac (2018), R common femoral endarterectomy (11/2018) with bovine patch. Left femoral to PT composite bypass graft (06/2020). as above, s/p angio , now s/p L fem-anterior tibial bypass with Dr Eason Statin on hold while on dapto, CK wnl (3) Diabetes mellitus type 1: Plan: Uncontrolled, has insulin pump outside of here and typically when off usual pump does have fluctuations BSG 70s this morning, but overall much improved from days prior --> now elevated this afternoon. RN to notify pharmacy for additional adjustments Pharmacy on consult and managing (4) CAD (coronary artery disease): Plan: S/P CABG x 1 (2015). Aortic Stenosis s/p porcine AV No chest pain today. Continue DAPT w/ ASA and Plavix, and metoprolol. Hold statin for Dapto as above No CP/SOb reported (5) Clostridium difficile colitis: Plan: H/O -- previously on slow long taper of po Vanc last admission Has occassional constipation On probiotic while on abx therapy --> had liquid stool earlier in stay, black, but on Fe BID Recent c-scope w/o abnormality cdiff negative earlier in stay --> retested 11/21 NEGATIVE (6) Hypertension: Plan: Patient initially hypotensive in ED and responded to fluid bolus - BPs acceptable 119/61 and continues on metoprolol 12.5mg BID (7) Dyslipidemia: Plan: Statin now held given Dapto as above (8) Hypothyroidism: Plan: Continue levothyroxine. (9) Diabetic nephropathy associated with type 1 diabetes mellitus: Plan: Documented hx of CKD stage 3, Cr and BUN appear wnl today. Continue daily iron, calcitrol, and potassium supplement. Renally dose all medications, avoid nephrotoxic agents. Cr 0.63 , stable (10) Hyponatremia: Plan: Asymptomatic at 133, Glu on BMP 258 TSH wnl Monitor (11) Folate deficiency: Plan: Folate 4.6 May 2021 and remains on folic acid supplementation. B12 checked --> 284 low normal and ordered IM replacement while inpatient (12) Below-knee amputation of right lower extremity: Plan: June 2021. No acute issues. Follows with Dr. Soto --> has prosthetic in room, hoping to be able to use some as had been in hospital much since he got and wants to get used to using it Daughter Loulou ([phone] - number given by patient). Patient has been updating her and is a good historian Plan: continue to monitor, plans for amputation early this upcoming week with Dr Soto. He will be in tomorrow to evaluate transmet amputation/calc debridement vs BKA consider transfer to [facility] later today (HR NSR 70-80s on monitor) Admission and Anticipated Discharge Date Admission Date: November 10, 2021 Supervising Physician Co-Signing Physician Notes PA Supervision Note: I did not personally see or examine the patient today, but I verified all perez points of BENITO Preston's assessment and plan with the following exceptions/additions: None Subjective Patient evaluated this morning. Doing well States pain decreased to his leg as well as buttocks. Denies fever/chills but did have slight elevation in temp 37.8C Eating/drinking without issue. No abdominal pain, nausea, or vomiting. Large soft/formed stool this morning. States he feels he may need to have another BM. Despite soft/liquid reported prior and sending for cdiff to ensure no infxn given WBC. Denies shortness of breath/cough/sputum production. Encouraged incentive spirometer. Awaiting eval tomorrow with Dr Soto to determine level of amputation required. Review of Systems Review of Systems: All systems reviewed & are unremarkable except as noted in HPI & below Physical Exam Physical Exam: General : WN/WD male sitting up in bed, NAD HEENT: head normocephalic, atraumatic, hearing intact, mm less dry Resp: CTAB, no w/c/r, on room air, last SpO2 95% CV: RRR, no m/r/g, LLE edema post-operatively, calves supple and slightly tender at site of incision/dressing to lateral L leg GI: +BS, soft, non-tender MSK: R BKA with scab to anterior midline, no abscess/fluctuance/erythema or tenderness to palpation LLE with expected edema, not erythematous, surgical dressings c/d/i, tender to palpation Skin: L foot with gangrenous great toe (more eschar/darkened appearance than earlier in week but not as bad as two days ago, non-tender), prior amputation of 2nd digit, 3rd digit with eschar as distal aspect 4th digit also necrotic (continued worsening), ulceration to plantar aspect 5th digit with some yellow drainage on dressing, R heel also with eschar/ulceration and tenderness to palpation buttocks with ecchymosis, pressure sore, small opening/tear almost closed near superior aspect of midline intergluteal cleft, mildly tender to palpation, no visible or expressible drainage Neuro: speech clear/appropriate, no focal deficits, answering questions appropriately Results & Data Results & Data ([facility]) Vital Signs (Past 12 Hours) Vital Signs Temp Pulse Pulse Resp BP Pulse Ox 11/21/21 07:17 36.9 C 75 18 138/64 96 11/21/21 03:55 37.0 C 77 14 135/58 L 93 11/20/21 22:45 37.8 C H 85 23 135/55 L 96 11/20/21 22:22 85 11/20/21 19:47 37.4 C 84 22 135/56 L 96 Laboratory Results 11/21/21 11/21/21 11/21/21 Range/Units 11:20 11:19 08:30 WBC (4.8-10.8) K/uL RBC (4.7-6.1) M/uL Hgb (14.0-18.0) g/dL Hct (42-52) % MCV (80-100) fL MCH (25-34) pg MCHC (32-36) g/dL RDW Std Deviation (36.4-46.3) fL RDW Coeff of Chan (11.5-14.5) % Plt Count (130-400) K/uL MPV (7.4-10.4) fL Immature Gran % (Auto) % Neut % (Auto) % Lymph % (Auto) % [place] % (Auto) % Eos % (Auto) % Baso % (Auto) % Neut # (Auto) (1.4-6.5) K/uL Lymph # (Auto) (1.2-3.4) K/uL [place] # (Auto) (0.11-0.59) K/uL Eos # (Auto) (0-0.5) K/uL Baso # (Auto) (0-0.2) K/uL Immature Gran # (Auto) (0.00-0.02) K/uL Sodium (136-145) mmol/L Potassium (3.5-5.1) mmol/L Chloride (98-107) mmol/L Carbon Dioxide (21-32) mmol/L Anion Gap (3-11) BUN (6-23) mg/dl Creatinine (0.6-1.4) mg/dl Est Cr Clr Drug Dosing ml/min Est GFR ( Amer) ml/min Est GFR (Non-Af Amer) ml/min BUN/Creatinine Ratio (10-20) Glucose (70-99(Fasting)) mg/dl POC Glucose 372 H* 353 H* (70-99) mg/dl Calcium (8.5-10.1) mg/dl Magnesium (1.7-2.4) mg/dl Stl C. diff Tox B Gene Negative Cdiff Gene (Neg) 11/21/21 11/21/21 11/21/21 Range/Units 07:18 06:05 06:05 WBC 13.73 H (4.8-10.8) K/uL RBC 3.35 L (4.7-6.1) M/uL Hgb 9.6 L (14.0-18.0) g/dL Hct 29.3 L (42-52) % MCV 87.5 (80-100) fL MCH 28.7 (25-34) pg MCHC 32.8 (32-36) g/dL RDW Std Deviation 47.0 H (36.4-46.3) fL RDW Coeff of Chan 14.6 H (11.5-14.5) % Plt Count 365 (130-400) K/uL MPV 9.1 (7.4-10.4) fL Immature Gran % (Auto) 0.2 % Neut % (Auto) 68.6 % Lymph % (Auto) 14.0 % [place] % (Auto) 13.0 % Eos % (Auto) 3.9 % Baso % (Auto) 0.3 % Neut # (Auto) 9.37 H (1.4-6.5) K/uL Lymph # (Auto) 1.92 (1.2-3.4) K/uL [place] # (Auto) 1.78 H (0.11-0.59) K/uL Eos # (Auto) 0.54 H (0-0.5) K/uL Baso # (Auto) 0.04 (0-0.2) K/uL Immature Gran # (Auto) 0.03 H (0.00-0.02) K/uL Sodium 133 L (136-145) mmol/L Potassium 4.5 (3.5-5.1) mmol/L Chloride 98 (98-107) mmol/L Carbon Dioxide 29 (21-32) mmol/L Anion Gap 6 (3-11) BUN 9 (6-23) mg/dl Creatinine 0.63 (0.6-1.4) mg/dl Est Cr Clr Drug Dosing 114.6 ml/min Est GFR ( Amer) 120.7 ml/min Est GFR (Non-Af Amer) 104.1 ml/min BUN/Creatinine Ratio 14.3 (10-20) Glucose 228 H (70-99(Fasting)) mg/dl POC Glucose 258 H (70-99) mg/dl Calcium 8.9 (8.5-10.1) mg/dl Magnesium 1.7 (1.7-2.4) mg/dl Stl C. diff Tox B Gene (Neg) 11/20/21 11/20/21 Range/Units 20:10 16:02 WBC (4.8-10.8) K/uL RBC (4.7-6.1) M/uL Hgb (14.0-18.0) g/dL Hct (42-52) % MCV (80-100) fL MCH (25-34) pg MCHC (32-36) g/dL RDW Std Deviation (36.4-46.3) fL RDW Coeff of Chan (11.5-14.5) % Plt Count (130-400) K/uL MPV (7.4-10.4) fL Immature Gran % (Auto) % Neut % (Auto) % Lymph % (Auto) % [place] % (Auto) % Eos % (Auto) % Baso % (Auto) % Neut # (Auto) (1.4-6.5) K/uL Lymph # (Auto) (1.2-3.4) K/uL [place] # (Auto) (0.11-0.59) K/uL Eos # (Auto) (0-0.5) K/uL Baso # (Auto) (0-0.2) K/uL Immature Gran # (Auto) (0.00-0.02) K/uL Sodium (136-145) mmol/L Potassium (3.5-5.1) mmol/L Chloride (98-107) mmol/L Carbon Dioxide (21-32) mmol/L Anion Gap (3-11) BUN (6-23) mg/dl Creatinine (0.6-1.4) mg/dl Est Cr Clr Drug Dosing ml/min Est GFR ( Amer) ml/min Est GFR (Non-Af Amer) ml/min BUN/Creatinine Ratio (10-20) Glucose (70-99(Fasting)) mg/dl POC Glucose 120 H 185 H (70-99) mg/dl Calcium (8.5-10.1) mg/dl Magnesium (1.7-2.4) mg/dl Stl C. diff Tox B Gene (Neg) PG Care Time/CCT Total # of Minutes Spent Total Time Spent with Patient: Total time spent is greater than 50% in coordination of care (as documented) at patient's floor/unit and/or counseling patient: Coding Level of Care Code 50571 Subseq Hosp Care Lvl 2 Diagnoses Diabetic ulcer of left foot E11.621; L97.529 PVD (peripheral vascular disease) I73.9 Diabetes mellitus type 1 E10.9 CAD (coronary artery disease) I25.10 Associated angina: without angina Coronary Disease-Associated Artery/Lesion type: [place] artery [place] vs. transplanted heart: [place] heart Clostridium difficile colitis A04.72 Hypertension I10 Hypertension type: unspecified Dyslipidemia E78.5 Hypothyroidism E03.9 Hypothyroidism type: unspecified Diabetic nephropathy associated with type 1 diabetes mellitus E10.21 Hyponatremia E87.1 Folate deficiency E53.8 Below-knee amputation of right lower extremity S88.111A (1) CAD (coronary artery disease) Associated angina: without angina Coronary Disease-Associated Artery/Lesion type: [place] artery [place] vs. transplanted heart: [place] heart Qualified Code(s): I25.10 - Atherosclerotic heart disease of [place] coronary artery without angina pectoris (2) Hypothyroidism Hypothyroidism type: unspecified Qualified Code(s): E03.9 - Hypothyroidism, unspecified (3) Hypertension Hypertension type: unspecified Qualified Code(s): I10 - Essential (primary) hypertension
[2021-11-21 07:45] LABS: Basophils # (auto) 0.04 K/uL (0-0.2); Basophils % (auto) 0.3 %; Eosinophils # (auto) 0.54 K/uL (0-0.5); Eosinophils % (auto) 3.9 %; Immature Granulocytes # (auto) 0.03 K/uL (0.00-0.02); Immature Granulocytes % (auto) 0.2 %; Lymphocytes # (auto) 1.92 K/uL (1.2-3.4); Monocytes # (auto) 1.78 K/uL (0.11-0.59); Neutrophils # (auto) 9.37 K/uL (1.4-6.5); Neutrophils % (auto) 68.6 %
[2021-11-21] MEDS ORDERED: MAGNESIUM SULFATE / D5W 1 GM/100 ML BAG IV ONE (08:00)
[2021-11-21] MEDS: HEPARIN SOD 5,000 UNIT/0.5 ML VIAL SQ SCH ×2 (08:46→20:35)
[2021-11-21] MEDS: DOCUSATE SODIUM/SENNA 50/8.6MG TAB PO SCH (08:46)
[2021-11-21] MEDS: METOPROLOL TARTRATE 25 MG TAB PO SCH ×2 (08:47→20:33)
[2021-11-21] MEDS: ASPIRIN 81 MG ECTAB PO SCH (08:47)
[2021-11-21] MEDS: FOLIC ACID 1 MG TAB PO SCH (08:47)
[2021-11-21] MEDS: FERROUS SULFATE 325 MG TAB PO SCH ×2 (08:47→20:33)
[2021-11-21] MEDS: ADVANCED PROBIOTIC 1250 MG CAPSULE PO SCH (08:47)
[2021-11-21] MEDS: CYANOCOBALAMIN 1000 MCG/ML VIAL IM SCH (08:48)
[2021-11-21] MEDS: CLOPIDOGREL BISULFATE 75 MG TAB PO SCH (08:48)
[2021-11-21] MEDS: CALCITRIOL 0.25 MCG CAPSULE PO SCH (08:48)
[2021-11-21] MEDS: PANTOprazole 40 MG TAB PO SCH (08:48)
[2021-11-21] MEDS: INSULIN ASPART PER UNIT SC SCH ×4 (09:03→20:40)
[2021-11-21] MEDS: POTASSIUM CHLORIDE CRTAB 20 MEQ TABCR PO SCH ×2 (09:42→20:40)
[2021-11-21] MEDS: DAPTOmycin 425 MG in SYRINGE 0 ML IV SCH (13:35)
--- NOTE | 2021-11-21 14:49 | Pharmacy Report ---
Pharmacy Glycemic Short Note 2 - Date of Service November 21, 2021 - Glycemic Short BSG Results (Last 24 hours): 11/20/21 11/20/21 11/21/21 16:02 20:10 06:05 Glucose 228 H POC Glucose 185 H 120 H 11/21/21 11/21/21 11/21/21 07:18 11:19 11:20 Glucose POC Glucose 258 H 353 H* 372 H* OUTPATIENT ANTIDIABETIC REGIMEN: * Novolog insulin pump: ~53 units/day * Basal: 1.65 units/hr (39.6 units/day) * Correction Factor: 30 mg/dL/unit * Nutritional / Prandial insulin per carb ratio of 1 unit per 6 grams CHO consumed * HbA1c: 8.0% (11/11/21) ASSESSMENT: 11/21 * POD2, blood sugars elevated today, unsure why, RN not able to determine if patient snacking? * Patient did have lower dose of basal yesterday, increased today, increase further tomorrow * Tighten CF/CR to 15/3.5 with lunch (BSG 353mg/dl --> 193mg/dl), then 20/4 thereafter 11/20 * POD1, type 1 DM Diet * Blood sugars well controlled, borderline low blood sugar this morning, pt had 30 units of basal yesterday, reduce to 25 units today * No further changes, pt remains on IV Zosyn + Dapto 11/19 * Patient NPO today for vascular surgery * Lantus dose ordered prior to surgery (patient has type-1 diabetes), unfortunately this dose was never given * Dose ordered postoperatively and will utilize overnight check this evening to cover additional needs 11/18 * BSGs yesterday of 179, 239, 67, and 129 mg/dL, fasting BSG inexplicably elevated this morning at 273 mg/dL * Given hypoglycemia at dinnertime, will loosen CF at lunchtime * Not overreacting to hyperglycemia at lunch today, as BSGs consistently come down at dinnertime and patient will be NPO after midnight for vascular procedure tomorrow morning 11/16 * Mr Chowdhury was NPO yesterday for vascular intervention. He has resumed his diet post-op. Pt will likely become NPO again night for procedure Monday. Will follow closely. * Lunch BSG tends to be elevated, so will tighten carb coverage with breakfast only. * Lantus dose increased slightly for tomorrow, as fasting BSG above goal. 11/14 * Patient's BSGs yesterday were [phone] and overnight were 73-167 mg/dL. Fasting today is 222 mg/dL. * Elevated BSG at dinnertime secondary to pump transition plus patient's own bolus at lunchtime. * Will give Lantus 38 units this morning to allow for some Lantus overlap and to decrease BSGs further. * Novolog as per previous as it does appear to have corrected patient appropriately. 11/13 * Patient's BSGs yesterday were [phone]. Patient received an 8 unit bolus yesterday evening for BSG of 461. * Patient corrected himself sporadically overnight. * Fasting today was 263 mg/dL. Lunch BSG was 326. * Nurse discussed with patient that due to high BSGs, it was prudent to remove insulin pump and manage basal/bolus. He is comfortable with this. Already gave lunch coverage. * Lantus 38 units x 1 and remove insulin pump 2 hours after this given. * Novolog based upon previous hospitalization. Background * Mr Chowdhury is a 66yo type 1 diabetic male, admitted with worsening DM foot ulcer/infection. * On admission last night, insulin pump was to be held and pt was initiated on SQ basal/bolus insulin. * BSGs have been on the low side today. When CDE visited pt today, he was found to still have his insulin pump running. SQ insulin orders stopped. * Will attempt to allow pt to manage himself with his insulin pump as long as BSGs are appropriate. * If BSGs become unstable, will convert back to SQ insulin. PLAN FOR INPATIENT GLYCEMIC CONTROL: * Basal insulin * Lantus 32 units SC today, then increase to 38 units tomorrow * Bolus insulin - tighten CF/CR * NovoLog per scale ACHS or Q6hrs while NPO * Goal Range: Low 110 mg/dL - High 140 mg/dL * Correction Factor: 20 mg/dL/unit with breakfast * Nutritional / Prandial insulin per carb ratio of 1 unit per 4 grams CHO consumed
[2021-11-22] MEDS: LEVOTHYROXINE SODIUM 175 MCG TABLET PO SCH (05:43)
[2021-11-22] MEDS: INSULIN ASPART PER UNIT SC SCH ×4 (08:46→20:51)
[2021-11-22] MEDS: ASPIRIN 81 MG ECTAB PO SCH (08:50)
[2021-11-22] MEDS: FERROUS SULFATE 325 MG TAB PO SCH ×2 (08:50→21:22)
[2021-11-22] MEDS: METOPROLOL TARTRATE 25 MG TAB PO SCH ×2 (08:51→21:22)
[2021-11-22] MEDS: CALCITRIOL 0.25 MCG CAPSULE PO SCH (08:53)
[2021-11-22] MEDS: CLOPIDOGREL BISULFATE 75 MG TAB PO SCH (08:53)
[2021-11-22] MEDS: FOLIC ACID 1 MG TAB PO SCH (08:53)
[2021-11-22] MEDS: HEPARIN SOD 5,000 UNIT/0.5 ML VIAL SQ SCH ×2 (08:54→21:23)
[2021-11-22] MEDS: ADVANCED PROBIOTIC 1250 MG CAPSULE PO SCH (08:57)
[2021-11-22] MEDS: CYANOCOBALAMIN 1000 MCG/ML VIAL IM SCH (08:58)
[2021-11-22] MEDS: LOPERAMIDE HCL 2 MG CAP PO PRN (08:58)
[2021-11-22] MEDS: PANTOprazole 40 MG TAB PO SCH (08:58)
[2021-11-22] MEDS ORDERED: INSULIN GLARGINE SOLOSTAR 100 UNITS/ML 3 ML PEN SC SCH (09:00)
[2021-11-22] MEDS: PIPERACILLIN/TAZOBACTAM 3.375 GM in DEXTROSE 5% 100 ML IV SCH ×2 (09:02→17:05)
[2021-11-22] MEDS: POTASSIUM CHLORIDE CRTAB 20 MEQ TABCR PO SCH ×2 (09:02→21:26)
[2021-11-22] MEDS: DOCUSATE SODIUM/SENNA 50/8.6MG TAB PO SCH (09:25)
--- NOTE | 2021-11-22 10:26 | Surgery Progress Note ---
Date of Service November 22, 2021 Assessment & Plan (1) S/P femoral-tibial bypass: Plan: Pt doing well post op day #3. Excellent doppler signals to L foot. OK for orthopedic surgery to L foot from vascular standpoint. Will continue to follow. Admission and Anticipated Discharge Date Admission Date: November 10, 2021 Subjective 66 yo m POD #3 after LLE cadaver fem-pop to anterior tibial artery bypass and embolization of bypass branch, seen in f/u today. Pt states he has post op pain which he expected, but denies any other new concerns regardng his LLE. Review of Systems Review of Systems: All systems reviewed & are unremarkable except as noted in HPI & below Physical Exam Constitutional: WD/WN, vitals as above cooperative and comfortable; not in distress Cardiovascular: Vessels: radial pulses present; + abnormal peripheral pulses (RLE amputation, LLE excellent doppler signals) Extremities: + edema (mild post op); + abnormal capillary refill (LLE dressing in place, gangrene of 2 toes noted) Skin: + wound (dressings in place to LLE) and + incision (LLE C/D/I with sharri. ) Neurologic: moves all extremities and awake; no focal motor deficits and not confused Psychiatric: A+Ox3, euthymic affect Results & Data ([facility]) Vital Signs (Past 12 Hours) Vital Signs Temp Pulse Pulse Resp BP Pulse Ox 11/22/21 07:24 36.6 C 75 18 129/56 L 95 11/22/21 03:30 36.8 C 79 19 161/65 H 94 11/21/21 23:33 37.0 C 77 25 H 127/57 L 95 11/21/21 22:25 78
--- NOTE | 2021-11-22 11:24 | Progress Notes ---
DATE OF SERVICE: 11/22/2021 Mr. Chowdhury remains hospitalized. He is several days status post a left bypass graft. Vascular notes w ere reviewed. He has a positive DP and posterior tibial dopplerable pulse. He has been afebrile. H is vital signs have been stable. X-rays of his tib-fib show postsurgical changes. No hardware excep t for his patella. There are degenerative changes of the left ankle related to previous injury. Daniela t x-ray shows complete absence of the fifth metatarsal. No evidence of osteo. Degenerative changes in the ankle and mid foot. Foot is inspected. There is a 1 x 3 cm lesion, rather freshened appearance over the lateral malleolu s proximally with no bone exposed. There are two 3 cm areas of black discoloration over the posterol ateral heel. There is a little bit of surrounding erythema, but no drainage or fluctuance. There is necrosis of the first, second and fourth toes. This extends a little bit plantar medial at the firs t and plantar at the base of the fourth. No significant erythema. No drainage. His ankle is ankylo sed from his previous ankle injury. He does not have any significant ankle range of motion. The daniela t is warm. There is no significant swelling. Findings are discussed with Mr. Chowdhury. The toes are necrotic and need to be removed. Given the overa ll situation, he is likely best suited with a below-knee amputation. Given that he has recently had vascular bypass surgery, which at this time is successful, I think it is reasonable to try to salvage his foot, particularly in light that he has a below-knee amputation on the contralateral side. Bila teral below-knee amputations would make it pretty difficult for him to ambulate. The fifth metatarsa l is already absence, so the peroneus brevis tendon is gone. With ankle arthritis and stiffness, he is not likely to develop a flexion contracture. I think this opens the possibility of a high transme t or a true transmetatarsal or [place] type amputation to preserve a weightbearing limb for ambulatio n. Given the ankle stiffness, I do not think that he is going to develop any significant contracture . We will make him n.p.o. We discussed treatment options, risks, benefits, rehab and recovery, and an informed consent was obtained. Hold blood thinner. We will coordinate care with medical service and with vascular. Plan for surgery tomorrow afternoon. Job ID: [id number]
[2021-11-22] MEDS ORDERED: INSULIN GLARGINE SOLOSTAR 100 UNITS/ML 3 ML PEN SC ONE (13:15)
--- NOTE | 2021-11-22 13:15 | Pharmacy Report ---
Pharmacy Glycemic Short Note 2 - Date of Service November 22, 2021 - Glycemic Short BSG Results (Last 24 hours): 11/21/21 11/21/21 11/21/21 14:46 16:31 20:28 POC Glucose 193 H 113 H 95 11/22/21 11/22/21 11/22/21 07:24 11:18 11:19 POC Glucose 309 H* 344 H* 334 H* 11/22/21 12:54 POC Glucose 352 H* OUTPATIENT ANTIDIABETIC REGIMEN: * Novolog insulin pump: ~53 units/day * Basal: 1.65 units/hr (39.6 units/day) * Correction Factor: 30 mg/dL/unit * Nutritional / Prandial insulin per carb ratio of 1 unit per 6 grams CHO consumed * HbA1c: 8.0% (11/11/21) ASSESSMENT: 11/22 * POD3, BSGs climbing today. Patient's BSG in 90s at bedtime last evening to awaken with BSGs in 300s this AM. RN reports BSG was pre-prandial and patient had not eating prior. Of note, pt's BSGs frequently not explainable with wide fluctuations (both highs and lows) despite insulin adjustments. Total daily insulin requirements can range 40 to 150+ units/day. * Basal insulin dose increased this AM. * Will attempt to gain control of hyperglycemia with more frequent Novolog dosing with larger correctional doses rather than increasing basal dose any further. He will likely be returning to the OR tomorrow and will be NPO if this is the case. 11/21 * POD2, blood sugars elevated today, unsure why, RN not able to determine if patient snacking? * Patient did have lower dose of basal yesterday, increased today, increase further tomorrow * Tighten CF/CR to 15/3.5 with lunch (BSG 353mg/dl --> 193mg/dl), then 20/4 thereafter 11/20 * POD1, type 1 DM Diet * Blood sugars well controlled, borderline low blood sugar this morning, pt had 30 units of basal yesterday, reduce to 25 units today * No further changes, pt remains on IV Zosyn + Dapto 11/19 * Patient NPO today for vascular surgery * Lantus dose ordered prior to surgery (patient has type-1 diabetes), unfortunately this dose was never given * Dose ordered postoperatively and will utilize overnight check this evening to cover additional needs PLAN FOR INPATIENT GLYCEMIC CONTROL: * Basal insulin * Lantus 38 units SC daily * Bolus insulin - * NovoLog per scale ACHS or Q6hrs while NPO * Goal Range: Low 110 mg/dL - High 140 mg/dL * Correction Factor: 20 mg/dL/unit with breakfast * Nutritional / Prandial insulin per carb ratio of 1 unit per 4 grams CHO consumed
[2021-11-22] MEDS: DAPTOmycin 425 MG in SYRINGE 0 ML IV SCH (13:19)
--- NOTE | 2021-11-22 13:29 | Hospitalist Progress Note ---
Date of Service November 22, 2021 Assessment & Plan (1) Diabetic ulcer of left foot: Plan: - LLE erythema and edema that goes slightly above malleolus with several skin fissures, necrotic ulcerated wound on 1.) medial aspect of L great toe with eschar, 2.) medial aspect of third toe with some drainage and eschar, 3.) on upper lateral border of left sole with eschar, and 4.) on heel of left foot with necrotic tissue. - XR - soft tissue swelling with no acute bony abnormality identified. Tib/fib with old healed fractures of the distal tibia and fibula with post-traumatic deformity present; OA - Wound Cx - Pseudomonas and S. 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 Did have slight temp 37.8C, suspect atelectasis and encouraged IS. C. diff rechecked and negative x 2 this admission - Orthopedics following - plans for transmetatarsal amputation on 11/23 - Wound care following - Suspect will need to place ID consultation - likely tomorrow (2) PVD (peripheral vascular disease): Plan: -B/L iliac artery stents (2014), R common/external iliac (2017), R common femoral endarterectomy (11/2018) with bovine patch. Left femoral to PT composite bypass graft (06/2020). - S/P angio and S/P L fem-anterior tibial bypass with Dr Eason on 11/19 - Initially treated with heparin gtt on admission until intervention - for complete occlusion of the [place] superficial femoral and popliteal arteries; bypass graft extending from superficial femoral artery to the posterior tibial artery with near complete to complete occlusion below the knee; no flow shown within the peroneal artery; anterior and posterior tibial arteries appear patent - Statin on hold while on dapto, CK WNL - Continue doppler check - Hgb stable post-operatively but did have a slight decrease from 11 -- suspect acute blood loss anemia from surgery and dilution from IVF (3) Diabetes mellitus type 1: Plan: Uncontrolled, has insulin pump outside of here and typically when off usual pump does have fluctuations Pharmacy on consult and managing (4) CAD (coronary artery disease): Plan: - S/P CABG x 1 (2016). Aortic Stenosis S/P porcine AV - Continue DAPT w/ ASA and Plavix (hold if needed for surgery if cleared by vascular), and metoprolol. - Hold statin for Dapto as above (5) Clostridium difficile colitis: Plan: H/O -- previously on slow long taper of po Vanc last admission Has occassional constipation but having more frequent loose stools which is likely due to Abx - no abdominal pain -- C. diff rechecked x 2 this admission and negative - On probiotic while on abx therapy --> sometimes black stool but on iron supplementation - Recent c-scope w/o abnormality (6) Hypertension: Plan: - Patient initially hypotensive in ED and responded to fluid bolus - BPs acceptable 119/61 and continues on metoprolol 12.5 mg BID (7) Dyslipidemia: Plan: - Statin now held given Dapto as above (8) Hypothyroidism: Plan: - Continue Levothyroxine (9) Diabetic nephropathy associated with type 1 diabetes mellitus: Plan: - CKD stage 3; STABLE - Continue daily iron, calcitriol, and potassium supplement. - Renally dose all medications, avoid nephrotoxic agents. (10) Hyponatremia: Plan: - Chronic; Asymptomatic at 133 - continue to monitor - TSH WNL (11) Folate deficiency: Plan: - Folate 4.6 May 2021 and remains on folic acid supplementation. - B12 checked --> 284 low normal and ordered IM replacement while inpatient (12) Below-knee amputation of right lower extremity: Plan: - June 2021. No acute issues. - Follows with Dr. Soto --> has prosthetic in room, hoping to be able to use some as had been in hospital much since he got and wants to get used to using it Shaan Jamil ([phone] - number given by patient). Patient has been updating her and is a good historian Plan: Planning on transmetatarsal amputation; then can do PT/OT to determine possible rehab vs home Shaan Jamil ([phone] - number given by patient). Patient has been updating her and is a good historian. Admission and Anticipated Discharge Date Admission Date: November 10, 2021 Supervising Physician Co-Signing Physician Notes PA Supervision Note: I did not personally see or examine the patient today, but I verified all perez points of BENITO Fitzgerald's assessment and plan with the following exceptions/additions: None Subjective No acute events overnight. Some mild post-operative pain but not requiring narcotics x a couple days. BSGs still fluctuating. He is tolerating a diet without issue. Having multiple loose stools which recently rechecked for C. Diff and negative. To go to the OR tomorrow.Verbalizes no new complaints Review of Systems Review of Systems: All systems reviewed & are unremarkable except as noted in Subjective Physical Exam Physical Exam: PHYSICAL EXAM General Appearance: WDWN in NAD who is A&O x 3 HEENT: Head is normocephalic/atraumatic; Hearing grossly intact; Mucous membranes moist Neck: Supple; Trachea midline; Neg JVD Heart: RRR with no M/G/R Lungs: CTA in all lung fuller bilaterally; Respirations unlabored; Neg accessory muscle use Abdomen: Soft, non-tender, non-distended; Positive BS x 4 quadrants Extremities: R BKA; L foot/ankle currently wrapped and did not remove Neurological: Speech clear; Gross motor/sensory function intact; Neg focal neurologic deficits Psychiatric: Appropriate mood/affect Skin: Normal Color; Warm/Dry; other than mentioned above Results & Data Results & Data ([facility]) Vital Signs (Past 12 Hours) Vital Signs Temp Pulse Resp BP Pulse Ox 11/22/21 11:17 37.1 C 72 18 128/56 L 98 11/22/21 07:24 36.6 C 75 18 129/56 L 95 11/22/21 03:30 36.8 C 79 19 161/65 H 94 PG Care Time/CCT Total # of Minutes Spent Total Time Spent with Patient: Total time spent is greater than 50% in coordination of care (as documented) at patient's floor/unit and/or counseling patient: Coding Level of Care Code 53522 Subseq Hosp Care Lvl 3 Diagnoses Diabetic ulcer of left foot E11.621; L97.529 PVD (peripheral vascular disease) I73.9 Diabetes mellitus type 1 E10.9 CAD (coronary artery disease) I25.10 Associated angina: without angina Coronary Disease-Associated Artery/Lesion type: [place] artery [place] vs. transplanted heart: [place] heart Clostridium difficile colitis A04.72 Hypertension I10 Hypertension type: unspecified Dyslipidemia E78.5 Hypothyroidism E03.9 Hypothyroidism type: unspecified Diabetic nephropathy associated with type 1 diabetes mellitus E10.21 Hyponatremia E87.1 Folate deficiency E53.8 Below-knee amputation of right lower extremity S88.111A (1) CAD (coronary artery disease) Associated angina: without angina Coronary Disease-Associated Artery/Lesion type: [place] artery [place] vs. transplanted heart: [place] heart Qualified Code(s): I25.10 - Atherosclerotic heart disease of [place] coronary artery without angina pectoris (2) Hypothyroidism Hypothyroidism type: unspecified Qualified Code(s): E03.9 - Hypothyroidism, unspecified (3) Hypertension Hypertension type: unspecified Qualified Code(s): I10 - Essential (primary) hypertension
[2021-11-22] MEDS ORDERED: INSULIN ASPART PER UNIT SC ONE (13:30)
[2021-11-22] MEDS: CARBOHYDRATES FOR HYPOGLYCEMIA PO PRN ×2 (20:49→21:05)
[2021-11-23] MEDS: PIPERACILLIN/TAZOBACTAM 3.375 GM in DEXTROSE 5% 100 ML IV SCH ×3 (01:18→17:29)
[2021-11-23] MEDS ORDERED: INSULIN ASPART PER UNIT SC ONE (02:00)
[2021-11-23] MEDS: LEVOTHYROXINE SODIUM 175 MCG TABLET PO SCH (06:08)
[2021-11-23] MEDS ORDERED: INSULIN GLARGINE SOLOSTAR 100 UNITS/ML 3 ML PEN SC SCH (09:00)
[2021-11-23] MEDS: INSULIN ASPART PER UNIT SC SCH ×4 (09:11→20:44)
[2021-11-23] MEDS: FERROUS SULFATE 325 MG TAB PO SCH ×2 (09:16→20:45)
[2021-11-23] MEDS: ADVANCED PROBIOTIC 1250 MG CAPSULE PO SCH (09:16)
[2021-11-23] MEDS: PANTOprazole 40 MG TAB PO SCH (09:16)
[2021-11-23] MEDS: FOLIC ACID 1 MG TAB PO SCH (09:17)
[2021-11-23] MEDS: CALCITRIOL 0.25 MCG CAPSULE PO SCH (09:17)
[2021-11-23] MEDS: CYANOCOBALAMIN 1000 MCG/ML VIAL IM SCH (09:18)
[2021-11-23] MEDS: METOPROLOL TARTRATE 25 MG TAB PO SCH ×2 (09:19→20:46)
[2021-11-23] MEDS: POTASSIUM CHLORIDE CRTAB 20 MEQ TABCR PO SCH (09:21)
[2021-11-23] MEDS: ASPIRIN 81 MG ECTAB PO SCH (10:26)
[2021-11-23] MEDS: DOCUSATE SODIUM/SENNA 50/8.6MG TAB PO SCH (10:26)
--- NOTE | 2021-11-23 10:40 | Pharmacy Report ---
Pharmacy Glycemic Short Note 2 - Date of Service November 23, 2021 - Glycemic Short BSG Results (Last 24 hours): 11/22/21 11/22/21 11/22/21 11:18 11:19 12:54 POC Glucose 344 H* 334 H* 352 H* 11/22/21 11/22/21 11/22/21 16:29 20:43 21:03 POC Glucose 77 66 L* 60 L* 11/22/21 11/23/21 11/23/21 21:26 02:11 07:20 POC Glucose 109 H 136 H 182 H OUTPATIENT ANTIDIABETIC REGIMEN: * Novolog insulin pump: ~53 units/day * Basal: 1.65 units/hr (39.6 units/day) * Correction Factor: 30 mg/dL/unit * Nutritional / Prandial insulin per carb ratio of 1 unit per 6 grams CHO consumed * HbA1c: 8.0% (11/11/21) ASSESSMENT: 11/23 * NPO for possible amputation today * BSG's were significantly elevated yesterday until HS, where they dropped to 66 mg/dL. Etiology likely overcorrection with Novolog due to a 2nd dose administered at dinner. CHO ratio was loosened at that time. BSG's then climbed overnight and are again elevated this AM * Will reduce Lantus for NPO status today, although not terribly aggressively due to T1DM and AM fasting BSG >180 mg/dL * Will changing Novolog to q4h 2nd NPO and tighten CHO ratio back to yesterday's in anticipation of diet again being ordered post-op 11/22 * POD3, BSGs climbing today. Patient's BSG in 90s at bedtime last evening to awaken with BSGs in 300s this AM. RN reports BSG was pre-prandial and patient had not eating prior. Of note, pt's BSGs frequently not explainable with wide fluctuations (both highs and lows) despite insulin adjustments. Total daily insulin requirements can range 40 to 150+ units/day. * Basal insulin dose increased this AM. * Will attempt to gain control of hyperglycemia with more frequent Novolog dosing with larger correctional doses rather than increasing basal dose any further. He will likely be returning to the OR tomorrow and will be NPO if this is the case. 11/21 * POD2, blood sugars elevated today, unsure why, RN not able to determine if patient snacking? * Patient did have lower dose of basal yesterday, increased today, increase further tomorrow * Tighten CF/CR to 15/3.5 with lunch (BSG 353mg/dl --> 193mg/dl), then 20/4 thereafter 11/20 * POD1, type 1 DM Diet * Blood sugars well controlled, borderline low blood sugar this morning, pt had 30 units of basal yesterday, reduce to 25 units today * No further changes, pt remains on IV Zosyn + Dapto 11/19 * Patient NPO today for vascular surgery * Lantus dose ordered prior to surgery (patient has type-1 diabetes), unfortunately this dose was never given * Dose ordered postoperatively and will utilize overnight check this evening to cover additional needs PLAN FOR INPATIENT GLYCEMIC CONTROL: * Basal insulin * Lantus 30 units SC daily x1 this AM * Bolus insulin - * NovoLog per scale q4h * Goal Range: Low 120 mg/dL - High 150 mg/dL * Correction Factor: 20 mg/dL/unit * Nutritional / Prandial insulin per carb ratio of 1 unit per 4 grams CHO consumed
--- NOTE | 2021-11-23 11:32 | Hospitalist Progress Note ---
Date of Service November 23, 2021 Assessment & Plan (1) Diabetic ulcer of left foot: Plan: - LLE erythema and edema that goes slightly above malleolus with several skin fissures, necrotic ulcerated wound on 1.) medial aspect of L great toe with eschar, 2.) medial aspect of third toe with some drainage and eschar, 3.) on upper lateral border of left sole with eschar, and 4.) on heel of left foot with necrotic tissue. - XR - soft tissue swelling with no acute bony abnormality identified. Tib/fib with old healed fractures of the distal tibia and fibula with post-traumatic deformity present; OA - Wound Cx - Pseudomonas and S. 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 Did have slight temp 37.8C, suspect atelectasis and encouraged IS. C. diff rechecked and negative x 2 this admission - Orthopedics following - plans for transmetatarsal amputation on 11/23 - Wound care following - Suspect will need to place ID consultation - likely tomorrow (2) PVD (peripheral vascular disease): Plan: -B/L iliac artery stents (2014), R common/external iliac (2017), R common femoral endarterectomy (11/2018) with bovine patch. Left femoral to PT composite bypass graft (06/2020). - S/P angio and S/P L fem-anterior tibial bypass with Dr Eason on 11/19 - Initially treated with heparin gtt on admission until intervention - for complete occlusion of the [place] superficial femoral and popliteal arteries; bypass graft extending from superficial femoral artery to the posterior tibial artery with near complete to complete occlusion below the knee; no flow shown within the peroneal artery; anterior and posterior tibial arteries appear patent - Statin on hold while on dapto, CK WNL and will check weekly - Continue doppler check - Hgb stable post-operatively but did have a slight decrease from 11 -- suspect acute blood loss anemia from surgery and dilution from IVF (3) Diabetes mellitus type 1: Plan: Uncontrolled, has insulin pump outside of here and typically when off usual pump does have fluctuations Pharmacy on consult and managing (4) CAD (coronary artery disease): Plan: - S/P CABG x 1 (2015). Aortic Stenosis S/P porcine AV - Continue DAPT w/ ASA and Plavix (held for surgery and can resume when cleared by surgeon), and metoprolol. - Hold statin for Dapto as above (5) Clostridium difficile colitis: Plan: H/O -- previously on slow long taper of po Vanc last admission Has occassional constipation but having more frequent loose stools which is likely due to Abx - no abdominal pain; afebrile; less BMs today -- C. diff rechecked x 2 this admission and negative - On probiotic while on abx therapy --> sometimes black stool but on iron supplementation - Recent c-scope w/o abnormality (6) Hypertension: Plan: - Patient initially hypotensive in ED and responded to fluid bolus - BPs acceptable 119/61 and continues on metoprolol 12.5 mg BID (7) Dyslipidemia: Plan: - Statin now held given Dapto as above (8) Hypothyroidism: Plan: - Continue Levothyroxine (9) Diabetic nephropathy associated with type 1 diabetes mellitus: Plan: - CKD stage 3; STABLE - Continue daily iron, calcitriol, and potassium supplement. - Renally dose all medications, avoid nephrotoxic agents. (10) Hyponatremia: Plan: - Chronic; Asymptomatic at 133 - continue to monitor - TSH WNL (11) Folate deficiency: Plan: - Folate 4.6 May 2021 and remains on folic acid supplementation. - B12 checked --> 284 low normal and ordered IM replacement while inpatient (12) Below-knee amputation of right lower extremity: Plan: - June 2021. No acute issues. - Follows with Dr. Soto --> has prosthetic in room, hoping to be able to use some as had been in hospital much since he got and wants to get used to using it Plan: Planning on transmetatarsal amputation; then can do PT/OT to determine possible rehab vs home; likely need for ID consultation Daughter Loulou ([phone] - number given by patient). Patient has been updating her and is a good historian. Admission and Anticipated Discharge Date Admission Date: November 10, 2021 Subjective No acute events overnight. Reporting minimal pain which is tolerable. BSGs continue to fluctuate but asymptomatic. Having less frequency of bowel movements. Currently NPO for surgery later today. Review of Systems Review of Systems: All systems reviewed & are unremarkable except as noted in Subjective Physical Exam Physical Exam: PHYSICAL EXAM General Appearance: WDWN in NAD who is A&O x 3 HEENT: Head is normocephalic/atraumatic; Hearing grossly intact; Mucous membr anes moist Neck: Supple; Trachea midline; Neg JVD Heart: RRR with no M/G/R Lungs: CTA in all lung fuller bilaterally; Respirations unlabored; Neg accessory muscle use Abdomen: Soft, non-tender, non-distended; Positive BS x 4 quadrants Extremities: R BKA; L foot/ankle currently wrapped and did not remove but can see necrosis of toes; surgical incision of the L ghotra well approximated with suture in place without drainage or erythema Neurological: Speech clear; Gross motor/sensory function intact; Neg focal neurologic deficits Psychiatric: Appropriate mood/affect Skin: Normal Color; Warm/Dry; other than mentioned above Results & Data Results & Data ([facility]) Vital Signs (Past 12 Hours) Vital Signs Temp Pulse Resp BP Pulse Ox 11/23/21 08:21 36.9 C 67 18 128/54 L 96 11/23/21 02:17 36.9 C 72 14 152/78 H 94 PG Care Time/CCT Total # of Minutes Spent Total Time Spent with Patient: Total time spent is greater than 50% in coordination of care (as documented) at patient's floor/unit and/or counseling patient: Coding Level of Care Code 07658 Subseq Hosp Care Lvl 3 Diagnoses Diabetic ulcer of left foot E11.621; L97.529 PVD (peripheral vascular disease) I73.9 Diabetes mellitus type 1 E10.9 CAD (coronary artery disease) I25.10 Coronary Disease-Associated Artery/Lesion type: [place] artery [place] vs. transplanted heart: [place] heart Associated angina: without angina Clostridium difficile colitis A04.72 Hypertension I10 Hypertension type: unspecified Dyslipidemia E78.5 Hypothyroidism E03.9 Hypothyroidism type: unspecified Diabetic nephropathy associated with type 1 diabetes mellitus E10.21 Hyponatremia E87.1 Folate deficiency E53.8 Below-knee amputation of right lower extremity S88.111A (1) CAD (coronary artery disease) Coronary Disease-Associated Artery/Lesion type: [place] artery [place] vs. transplanted heart: [place] heart Associated angina: without angina Qualified Code(s): I25.10 - Atherosclerotic heart disease of [place] coronary artery wit hout angina pectoris (2) Hypertension Hypertension type: unspecified Qualified Code(s): I10 - Essential (primary) hypertension (3) Hypothyroidism Hypothyroidism type: unspecified Qualified Code(s): E03.9 - Hypothyroidism, unspecified
[2021-11-23] MEDS ORDERED: ATROPINE SULFATE 0.1 MG/ML 10ML SYR IV PRN (12:32)
[2021-11-23] MEDS ORDERED: HYDROmorphone INJ 2 MG/ML SYR/VIAL IV PRN (12:32)
[2021-11-23] MEDS ORDERED: fentaNYL citrate 100 MCG/2 ML VIAL IV PRN (12:32)
[2021-11-23] MEDS ORDERED: ePHEDrine sulfate 50 MG/ML AMP IV PRN (12:32)
[2021-11-23] MEDS ORDERED: ONDANSETRON INJ 2 MG/ML 2 ML VIAL IV PRN (12:32)
--- NOTE | 2021-11-23 12:32 | History & Physical Bridge Note ---
Date of Service November 23, 2021 History & Physical Bridge Note I have examined the patient, reviewed the History & Physical and in the interval since the performance of the History & Physical I have noted the following changes of clinical significance: no changes noted, left foot
--- NOTE | 2021-11-23 12:32 | Anesthesiology Consultation ---
Date of Service November 23, 2021 Assessment & Plan ASA ASA4 Proposed Anesthesia Anesthesia Type: General Risk / Benefits Reviewed With: PT / POA / Parent / Guardian History Surgery Operation Date: 11/15/21 11:25 Proposed Procedures p Left Lower Extremity Angiogram Possible Intervention - Floyd Eason MD Operation Date: 11/19/21 09:05 Proposed Procedures p Left Femoral to Anterior Tibial Bypass - Floyd Eason MD Operation Date: 11/23/21 12:45 Proposed Procedures p Left Transmetatarsal Versus [place]opart Amputation - Xander Soto MD Height/Weight Height: 5 ft 8 in Weight: 75.1 kg Allergies Allergy/AdvReac Type Severity Reaction Status Date / Time No Known Allergies Allergy Unknown Verified 11/23/21 12:17 Medications Home Medications Medication Instructions Recorded Confirmed Last Taken clopidogrel 75 mg tablet (Plavix) 75 mg PO QAM #30 tab 01/28/21 11/10/21 09/28/21 metoprolol tartrate 25 mg tablet 12.5 mg PO BID #90 tab 02/09/21 11/10/21 09/29/21 05:00 calcitriol 0.25 mcg capsule 0.25 mcg PO QAM #30 cap 04/27/21 11/10/21 09/28/21 (Rocaltrol) aspirin 81 mg tablet,delayed 81 mg PO QAM 05/04/21 11/10/21 09/28/21 release (Aspirin Low Dose) pantoprazole 40 mg tablet,delayed 40 mg PO QAM #30 tab 06/15/21 11/10/21 09/29/21 05:00 release (Protonix) levothyroxine 175 mcg tablet 175 mcg PO QAM 06/30/21 11/10/21 09/29/21 05:00 (Synthroid) insulin aspart U-100 100 unit/mL See Rx Instructions .ROUTE 07/14/21 11/10/21 08/24/21 (3 mL) subcutaneous pen (Novolog .COMPLEX #3 ml Flexpen U-100 Insulin aspart) ferrous sulfate 325 mg (65 mg 325 mg PO BID #60 tab 08/03/21 11/10/21 09/28/21 iron) tablet,delayed release folic acid 1 mg tablet 1 mg PO QAM #30 tab 08/03/21 11/10/21 09/28/21 lactobacillus combination no.9 4 4,000 mmu cells PO DAILY 08/04/21 11/10/21 09/28/21 billion cell capsule (Adult 50 Plus Probiotic) Bed Side Commode #1 ea 08/09/21 11/10/21 Unknown Commode rails #1 ea 08/10/21 11/10/21 Unknown potassium chloride 20 mEq 20 meq PO BID #60 tab 09/20/21 11/10/21 09/28/21 tablet,extended release insulin aspart U-100 100 unit/mL 75 unit SQ CONT 90 Days #70 ml 10/14/21 11/10/21 Unknown subcutaneous solution (Novolog U-100 Insulin aspart) atorvastatin 80 mg tablet (Lipitor) 80 mg PO HS #90 tab 11/15/21 Unknown Active Medications Generic Name Dose Route Start Last Admin Trade Name Freq PRN Reason Stop Dose Admin Acetaminophen 650 mg 11/10/21 21:12 11/15/21 23:06 Acetaminophen 325 Mg Tab PO 12/10/21 21:11 650 mg Q4H PRN Administration Pain or Fever Aspirin 81 mg 11/11/21 09:00 11/23/21 10:26 Aspirin 81 Mg Ectab PO 12/11/21 08:59 Not Given QAM LIZZY Atorvastatin Calcium 80 mg 11/10/21 21:12 11/17/21 21:06 Atorvastatin 40 Mg Tab PO 12/10/21 21:11 80 mg HS LIZZY Administration Calcitriol 0.25 mcg 11/11/21 09:00 11/23/21 09:17 Calcitriol 0.25 Mcg Capsule PO 12/11/21 08:59 0.25 mcg QAM LIZZY Administration Clopidogrel Bisulfate 75 mg 11/11/21 09:00 11/22/21 08:53 Clopidogrel Bisulfate 75 Mg Tab PO 12/11/21 08:59 75 mg QAM LIZZY Administration Ferrous Sulfate 325 mg 11/10/21 21:12 11/23/21 09:16 Ferrous Sulfate 325 Mg Tab PO 12/10/21 21:11 325 mg BID LIZZY Administration Folic Acid 1 mg 11/11/21 09:00 11/23/21 09:17 Folic Acid 1 Mg Tab PO 12/11/21 08:59 1 mg QAM LIZZY Administration Heparin Sodium (Porcine) 5,000 units 11/21/21 09:00 11/22/21 21:23 Heparin Sod 5,000 Unit/0.5 Ml Vial SQ 12/21/21 08:59 5,000 units Q12 LIZZY Administration Piperacillin Sod/Tazobactam 115 mls @ 28.75 mls/hr 11/18/21 08:00 11/23/21 09:06 Sod 3.375 gm/ Dextrose IV 12/30/21 07:59 28.8 mls/hr Q8H LIZZY Administration Protocol Daptomycin 425 mg/ Syringe 8.5 mls @ 4.25 mls/min 11/19/21 14:00 11/22/21 13:19 IV 12/31/21 13:59 4.25 mls/min Q24H LIZZY Administration Protocol Insulin Aspart 0 units 11/23/21 09:00 11/23/21 11:53 Insulin Aspart Per Unit SC 12/23/21 08:59 4 units Q4 LIZZY Administration Lactobacillus Acidophilus 2 cap 11/12/21 09:00 11/23/21 09:16 Advanced Probiotic 1250 Mg Capsule PO 12/12/21 08:59 2 cap DAILY LIZZY Administration Levothyroxine Sodium 175 mcg 11/11/21 06:30 11/23/21 06:08 Levothyroxine Sodium 175 Mcg Tablet PO 12/11/21 06:29 Not Given DAILYBB LIZZY Loperamide HCl 2 mg 11/12/21 15:35 11/22/21 08:58 Loperamide Hcl 2 Mg Cap PO 12/12/21 15:34 2 mg Q3H PRN Administration Diarrhea Magnesium Hydroxide 30 ml 11/10/21 23:36 11/14/21 01:27 Magnesium Hydroxide Susp 30 Ml Udc PO 12/10/21 23:35 30 ml Q6H PRN Administration Constipation Metoprolol Tartrate 12.5 mg 11/10/21 21:12 11/23/21 09:19 Metoprolol Tartrate 25 Mg Tab PO 12/10/21 21:11 12.5 mg BID LIZZY Administration Miscellaneous 15 - 30 gm 11/10/21 21:12 11/22/21 21:05 Carbohydrates For Hypoglycemia PO 12/10/21 21:11 15 gm UD PRN Administration Hypoglycemia Protocol Oxycodone HCl 5 mg 11/16/21 09:28 11/19/21 23:02 Oxycodone Hcl Ir 5 Mg Tab (Immediate Release) PO 11/30/21 09:27 5 mg Q4H PRN Administration Pain Pantoprazole Sodium 40 mg 11/11/21 09:00 11/23/21 09:16 Pantoprazole 40 Mg Tab PO 12/11/21 08:59 40 mg QAM LIZZY Administration Polyethylene Glycol 17 gm 11/10/21 21:12 11/11/21 18:35 Polyethylene (Miralax) 17 Gm Pack PO 12/10/21 21:11 17 gm DAILY PRN Administration Constipation Senna/Docusate Sodium 1 tab 11/21/21 09:00 11/23/21 10:26 Docusate Sodium/Senna 50/8.6mg Tab PO 12/21/21 08:59 Not Given QAM LIZZY NPO Date Last Intake of Fluids: 11/22/21 Time Last Intake of Fluids: 22:30 Last Intake of Fluids Comment: sip water this am with meds 0900 Date Last Intake of Solids: 11/22/21 Time Last Intake of Solids: 23:30 Past Medical History Medical History (Updated 11/19/21 @ 08:10 by Carito Veras MD) Aortic stenosis s/p porcine valve replacement (2015) with CABG x 1 CAD (coronary artery disease) s/p CABG x 1 (2015) CKD (chronic kidney disease) stage 2, GFR 60-89 ml/min Diabetes mellitus type 1 + Insulin pump Diabetic nephropathy associated with type 1 diabetes mellitus Dyslipidemia GERD (gastroesophageal reflux disease) History of Clostridium difficile infection History of osteomyelitis Hypertension Hypothyroidism Insulin pump in place Osteoarthritis Osteoporosis Proliferative diabetic retinopathy associated with type 1 diabetes mellitus PVD (peripheral vascular disease) s/p B/L iliac artery stents (2014), R common/external iliac (2017), R common femoral endarterectomy (11/2018) with bovine patch. Left femoral to PT composite bypass graft (06/2020) VRE infection (vancomycin resistant enterococcus), with multi-drug resistance hx Exercise / Class Metabolic Activity II 4-5 Yardwork/Stairs/Walk up hill Past Family History Family History Brother Family history of diabetes mellitus Sister Family history of diabetes mellitus Mother Family history of diabetes mellitus Grandmother (Maternal) Family history of diabetes mellitus Uncle Family hx of colon cancer Colorectal cancer Father Family history of esophageal cancer Sister Family history of diabetes mellitus Other No family history of adverse response to anesthesia Denies family history of Ovarian cancer Prostate cancer Myocardial infarction Breast cancer Past Surgical History Surgical History (Updated 11/22/21 @ 10:24 by Bekah Rodriges PA-C) Below-knee amputation of right lower extremity RETURNED HOME FROM [facility] 07/30/21 H/O cataract extraction R/L H/O endarterectomy R common femoral (11/2018) H/O vascular surgery Right Femoral to Posterior tibial Prosthetic Bypass Graft(Right) History of ankle surgery LEFT ANKLE +HARDWARE REMOVED History of aortic valve replacement 2015 ([facility] [place] History of arterial bypass of lower extremity Left femoral to PT composite bypass graft (06/2020) History of cardiac cath x2, most recent 2016 > no stents (subsequent CABG with AVR in 2015) History of carpal tunnel release R/L History of colonoscopy History of coronary artery bypass graft CABG x1 + AVR (2015) History of esophagogastroduodenoscopy (EGD) History of myringotomy History of open reduction and internal fixation (ORIF) procedure LLE () History of skin graft Split Thickness Skin Graft of Left Lateral Ankle (11/18/20): LMA#5, atraumatic x1 at [facility] History of tonsillectomy History of tooth extraction History of umbilical hernia repair Hx of surgical procedure Left Leg Wound Debridement and Irrigation S/P femoral-tibial bypass S/P femoropopliteal bypass surgery Right fem-pop bypass graft (01/19/21): Grade 2 view, MAC 3.0, ETT 8.0 at [facility] S/P insertion of iliac artery stent B/L iliac stent placement (2014) 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 Past Anesthesia History No Hx of Anesthesia Complications and No Family Hx of Anesthesia Complications History of PONV No Hx of PONV and No Hx of Motion Sickness Social History Smoking Status: Former smoker tobacco type: cigarettes and smokeless tobacco Smoking cigarettes per day: Quit 15 years ago Hx Alcohol Use: No Alcohol type: beer alcohol intake frequency: holidays/special occasions only Hx Substance Use: Yes substance use type: painkillers Review of Systems denies fever/cough/ colds/ chest pain/ SOB/ KIKO denies KIKO Physical Exam Vital Signs Last Vital Signs Temp 36.9 C 11/23/21 12:19 Pulse 70 11/23/21 12:19 Resp 20 11/23/21 12:19 BP 146/55 H 11/23/21 12:19 Pulse Ox 97 11/23/21 12:19 ENMT Mouth: + edentulous; no TMJ abnormality and no dentition abnormality Thyromental Distance: > or= 3.5 Finger Breadths Mallampati Class: II Neck neck extension not limited Respiratory normal respiratory effort; no respiratory distress Auscultation: lungs clear to auscultation bilaterally Cardiovascular Rate/Rhythm: regular rate and regular rhythm Neurologic moves all extremities Psychiatric Orientation: alert and oriented x 3 Testing Laboratory Results 11/21/21 06:05 11/21/21 06:05 PT 11.4 Seconds (9.0-12.0) 11/10/21 16:34 INR 1.1 (0.9-1.1) 11/10/21 16:34 APTT 51.0 Seconds (21.0-31.0) H* 11/19/21 07:26 Hemoglobin A1c 8.0 % (4.5-5.6) H 11/11/21 05:24 Urine Color Yellow 11/10/21 18:47 Urine Appearance Clear (Clear) 11/10/21 18:47 Urine pH 5.5 (4.5-7.5) 11/10/21 18:47 Ur Specific [place] 1.018 (1.000-1.030) 11/10/21 18:47 Urine Protein Negative (Negative) 11/10/21 18:47 Urine Glucose (UA) 2+ (Negative) H 11/10/21 18:47 Urine Ketones 2+ (Negative) H 11/10/21 18:47 Urine Nitrite Negative (Negative) 11/10/21 18:47 Ur Leukocyte Esterase Negative (Negative) 11/10/21 18:47 Blood Type A Positive 11/18/21 16:37 Antibody Screen NEGATIVE 11/18/21 16:37 11/10/21 16:34 Aerobic Blood Culture - Final Blood No growth in Aerobic bottle after 5 days. Anaerobic Blood Culture - Final No growth in Anaerobic bottle after 5 days. 11/10/21 17:09 Aerobic Blood Culture - Final Blood No growth in Aerobic bottle after 5 days. Anaerobic Blood Culture - Final No growth in Anaerobic bottle after 5 days. 11/10/21 16:42 Gram Stain - Final Foot Wound Culture - Final Pseudomonas aeruginosa Staphylococcus aureus 11/23/21 11/23/21 11/23/21 12:22 11:28 07:20 POC Glucose 253 H 220 H 182 H 11/23/21 02:11 POC Glucose 136 H Electrocardiogram Date: 08/24/21 Normal sinus rhythm Left axis deviation Right bundle branch block Inferior infarct (cited on or before 31-JUL-2020) Abnormal ECG When compared with ECG of 30-JUN-2021 12:29, QRS axis Shifted left Confirmed by Bobby Lance ([id number]) on 08/27/2021 7:29:19 PM Chest X-Ray Date: 11/18/21 IMPRESSION: No acute abnormality and in particular no evidence of pneumonia. Echocardiogram Date: 07/11/22 Date: 07/11/21 EF: none mentioned LV Function: normal Valvular Disease: + (there is a bioprosthetic aortic valve; (no mention of ))
[2021-11-23] MEDS ORDERED: fentaNYL citrate 100 MCG/2 ML VIAL ONE ×2 (12:39→13:56)
[2021-11-23] MEDS ORDERED: LIDOCAINE 2% 2 ML VIAL/AMP(20MG/ML) INFIL ONE (12:39)
[2021-11-23] MEDS ORDERED: PROPOFOL IV EMULSION 10 MG/ML 20 ML VIAL IV ONE (12:39)
[2021-11-23] MEDS ORDERED: ePHEDrine sulfate 50 MG/ML SYR ONE (13:22)
[2021-11-23] MEDS ORDERED: TRANEXAMIC ACID 1,000 MG IV ONE (13:45)
[2021-11-23] MEDS ORDERED: GELATIN SPONGE SZ 100 ONE (14:01)
[2021-11-23] MEDS ORDERED: THROMBIN FOR SOLN 20000 UNIT KIT ONE (14:03)
[2021-11-23] MEDS ORDERED: PHENYLEPHRINE 100MCG/ML 5ML SYR ONE (14:04)
--- NOTE | 2021-11-23 14:56 | Fluoroscopy Report ---
FL foot LT 2V CLINICAL HISTORY: Left foot transmetatarsal amputation. COMPARISON STUDY: None. FLUOROSCOPY TIME: 5 seconds. FINDINGS: A single fluoroscopic spot image of the left foot demonstrates transmetatarsal amputation. IMPRESSION: Fluoroscopic assistance provided for left foot transmetatarsal amputation. ACT 112: Negative or not required by law. Electronically signed by: Otf Avila M.D. 11/23/2021 2:54 PM
--- NOTE | 2021-11-23 15:41 | Operative Report ---
Post Operative Report Pre & Post Diagnosis Operation Date: 11/23/21 12:45 Pre-Op Diagnosis: Ischemic Ulcer Diabetic Foot Post-Op Diagnosis: Ischemic Ulcer Diabetic Foot I identified the patient and participated in the time-out.: Yes Procedure Operation Date: 11/23/21 12:45 Actual Procedures p Left Transmetatarsal Amputation with Debridement of Left Heel, Woud Vac Application(Left) - Xander Soto MD Surgeon Xander Soto M.D. Welding Machine Assembler Cori Graves, PAC Estimated Blood Loss 150 Findings Consistent with Post-Op Diagnosis Specimens left forefoot wounds left heel Anesthesia Type General Description of Procedure Patient was taken to the operating room, placed under general anesthesia, given 2gm IV ancef for surgical prophylaxis. Time out performed, prepped and draped in routine sterile fashion. I was present during the entire case and assisted with positioning, tissue retraction, bleeding control, debridement, closure and application of wound vac, please see Dr. Soto's operative report for further detail. Patient was awakened and taken to the recovery room in stable condition. I attest to the content of the Intraoperative Record and any orders documented therein. Any exceptions are noted below.
--- NOTE | 2021-11-23 15:42 | Operative Report ---
Post Operative Report Pre & Post Diagnosis Operation Date: 11/15/21 11:25 Pre-Op Diagnosis: osteomyelitis left foot Post-Op Diagnosis: osteomyelitis left foot Operation Date: 11/19/21 09:05 Pre-Op Diagnosis: Diabetic ulcer of left foot Post-Op Diagnosis: Diabetic ulcer of left foot Operation Date: 11/23/21 12:45 Pre-Op Diagnosis: Ischemic Ulcer Diabetic Foot Post-Op Diagnosis: Ischemic Ulcer Diabetic Foot I identified the patient and participated in the time-out.: Yes Procedure Operation Date: 11/15/21 11:25 Actual Procedures p Left Lower Extremity Angiogram, ultrasound localization of right femoral artery, mechanical closure of right femoral artery moderate sedation 1050- 1143(Right) - Floyd Eason MD Operation Date: 11/19/21 09:05 Actual Procedures p Left Femoral to Anterior Tibial Bypass with Cadaver Vein and Embolization of side branch of the bypass(Left) - Floyd Eason MD Operation Date: 11/23/21 12:45 Actual Procedures p Left Transmetatarsal Amputation. Debridement of heel wound. Application of wound VAC.- Xander Soto MD Surgeon Xander Soto MD Talent Acquisition Project Manager Cori Graves physicians community program assistant no resident or fellow available Estimated Blood Loss 150 Findings Consistent with Post-Op Diagnosis Specimens Resected heel ulcers and resected forefoot Drains Wound VAC Anesthesia Type General Complications none Disposition Accompanied Patient To Recovery: No Disposition: Recovery Room Indications Mr. Chowdhury is 66. Significant diabetes and peripheral vascular disease. He has ischemic necrosis of the first and third as well as the plantar aspect of the fourth toes on his left foot. He has 2 large ischemic necrotic areas on the heel. He is status post successful vascular bypass surgery. He is taken to surgery for ablation of his forefoot and debridement of his heel wounds. Description of Procedure Informed consent obtained. Patient identified. He identified the operative site. I marked with my initials. A preoperative surgical timeout performed. A preop dose of IV antibiotics was given. He was positioned supine on the table. No tourniquet. A bump under the left hip. The leg was prescrubbed with Betadine and then prepped with Betadine in the usual sterile fashion. Fluoroscopic guidance was utilized. DVT prophylaxis with mechanical devices. At the conclusion of the surgical procedure the heel wounds were debrided. Medially there was a 1 cm eschar which was debrided full-thickness through the skin. All debridements were sharp excisional done with a scalpel. This revealed good bleeding tissue underneath with a depth of about 3 to 5 mm. No exposed bone. Hypertrophic and dried epidermis removed throughout the hindfoot area. The 2 ischemic areas on the lateral and posterior aspect of the foot. They were debrided. Margin of 2 to 3 mm to get back to bleeding tissue. Debrided to the appropriate depth into the fatty tissue to get bleeding tissue. Bleeding here was not as robust as in the forefoot. The more lateral lesion was 2 x 3 cm with a depth of 5 mm. The more posterior lesion was 3 x 4 cm with a depth of 5 mm. No purulence was encountered but there was subcutaneous necrotic fat and full-thickness necrosis of the skin. At the conclusion the operation a wound VAC was applied to the heel area and deployed in the standard fashion. Xeroform was applied to the upper leg incisions. The transmetatarsal incision was covered with Xeroform well-padded with gauze ABDs cast padding. Gauze was applied to the upper leg incisions from his prior surgery. A bump was placed under the heel to create pressure relief underneath the splint. A long posterior splint from the knee over the top of the foot was applied and after hardened the bump was removed. There was no pressure on anything. He also had a 1 x 3 cm superficial lesion over the distal lateral leg fibular area. Into the dermis no exposed bone or tendon. This was clean in appearance with early granulation and was covered with an Optifoam. The main surgical procedure began by fashioning dorsal and plantar flaps. I made incisions down along the shafts of the first metatarsal. The fifth metatarsal had been previously removed and reutilize this incision. I then made fishmouth incisions medially and lateral around the forefoot coursing just proximal to the webspaces dorsally and just proximal to the area of necrosis plantarly. This was incised full-thickness down to the bone and then elevated subperiosteally plantarly and dorsally protecting the tissues as we went. Dorsally I elevated the flap up to near the tarsometatarsal area. At this juncture fluoroscopic guidance was utilized to fashion a short transmetatarsal amputation about 1-1/2 to 2 cm at the first and then cascading laterally from there over to the fourth. The cuts were made with an oscillating saw angled dorsal to plantar. I beveled the fourth laterally as well. I debrided the sharp margins of the bone throughout. Laboratory Mechanical Technician image was obtained documenting the resection. The forefoot was then dissected out subperiosteally and sent for specimen. No purulence was encountered I did not take a culture. The wound was then copiously irrigated with sterile saline. Hemostasis was achieved with Gelfoam pressure cautery and 2-0 silk stick ties. The dorsalis pedis artery was double stick tied and various small bleeders throughout the forefoot were done in the same fashion. There was some bleeding from the bone which was controlled. All in all there was excellent bleeding from both the dorsal and plantar flaps with no duskiness. I then trimmed the dorsal flap to eliminate redundancy and brought the remaining plantar flap up. It did curve a little bit proximal at its lateral extent but I was able to accommodate this. The tissue was then closed in a tension-free fashion without significant redundancy. I did not think a drain was necessary. The incision was then closed with 3-0 nylon simple sutures and near far far near stitches in a tension-free fashion. The dressing was then applied. 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 The ankle was in neutral position and there was essentially no active and very minimal passive movement. I did not think anything would benefit in terms of lengthening the Achilles. The leg was cleaned with wet and dry sponges and the dressing was applied as mentioned previously. He was awakened from anesthesia without difficulty taken to the recovery in stable condition specimens were as mentioned above. Counts were correct blood loss 150 cc. At the conclusion the operation spoke patient's family informed of my findings and postop instructions were given. Plan is continue his hospital admission. Offload the foot. Consult wound care continue wound VAC antibiotics. We will restart Plavix and heparin in the morning for DVT prophylaxis. I attest to the content of the Intraoperative Record and any orders documented therein. Any exceptions are noted below.
[2021-11-23] MEDS ORDERED: METOCLOPRAMIDE HCL INJ 5 MG/ML 2 ML VIAL IV PRN (16:32)
[2021-11-23] MEDS ORDERED: NALOXONE HCL 0.4 MG/1 ML VIAL/CARP IV PRN (16:32)
[2021-11-23] MEDS ORDERED: bisacodyL 10 MG SUPP PR PRN (16:32)
--- NOTE | 2021-11-23 16:41 | Anesthesiology Progress Note ---
Date of Service November 23, 2021 Anesthesia Post Procedure Vital Signs Vital Signs: Temp Pulse Pulse Pulse Resp BP Pulse Ox 11/23/21 16:05 86 20 107/58 L 97 11/23/21 15:55 36.1 C L 86 20 120/64 97 11/23/21 15:45 88 19 119/61 98 11/23/21 15:35 90 19 123/53 L 99 11/23/21 15:28 36.3 C L 89 19 169/72 H 99 11/23/21 12:19 36.9 C 70 20 146/55 H 97 11/23/21 12:00 37.0 C 70 18 129/55 L 97 11/23/21 11:35 72 11/23/21 08:21 36.9 C 67 18 128/54 L 96 11/23/21 02:17 36.9 C 72 14 152/78 H 94 11/22/21 23:00 72 11/22/21 22:53 36.9 C 82 20 151/68 H 96 11/22/21 19:39 36.9 C 79 18 154/60 H 97 Pain Intensity Left Foot: Pain Intensity: 2 Transfer of Care Handoff Completed per policy Notes Mental Status: alert / awake / arousable Patient Amnestic to Procedure: Yes Nausea / Vomiting: adequately controlled Pain: adequately controlled Airway Patency, RR, SpO2: stable & adequate BP & HR: stable & adequate Hydration State: stable & adequate Anesthetic Complications: no major complications apparent
[2021-11-23 16:55] LABS: Hematocrit (blood only) 29.8 % (42-52); Hemoglobin 9.6 g/dL (14.0-18.0)
[2021-11-23] MEDS: DAPTOmycin 425 MG in SYRINGE 0 ML IV SCH (17:09)
[2021-11-23] MEDS: ACETAMINOPHEN 325 MG TAB PO PRN (20:45)
[2021-11-23] MEDS ORDERED: TRANEXAMIC ACID / 0.7% NACL 1,000 MG/100 ML BAG IV SCH (21:45)
[2021-11-24] MEDS: PIPERACILLIN/TAZOBACTAM 3.375 GM in DEXTROSE 5% 100 ML IV SCH ×4 (00:25→23:31)
[2021-11-24] MEDS: INSULIN ASPART PER UNIT SC SCH ×6 (00:26→22:01)
[2021-11-24] MEDS: LEVOTHYROXINE SODIUM 175 MCG TABLET PO SCH (04:37)
[2021-11-24 07:55] LABS: Hematocrit (blood only) 23.3 % (42-52); Hemoglobin 7.8 g/dL (14.0-18.0); Mean Corpuscular Hemoglobin 29.4 pg (25-34); Mean Corpuscular Hgb Conc 33.5 g/dL (32-36); Mean Corpuscular Volume 87.9 fL (80-100); Mean Platelet Volume 8.5 fL (7.4-10.4); Platelet Count 461 K/uL (130-400); RDW Coefficient of Variation 14.8 % (11.5-14.5); RDW Standard Deviation 46.8 fL (36.4-46.3); Red Blood Count 2.65 M/uL (4.7-6.1)
[2021-11-24 08:25] LABS: BUN Creatinine Ratio 16.9 (10-20); Calcium 8.4 mg/dl (8.5-10.1); Creatinine Clr Calc Pharmacy 93.8 ml/min; Est GFR (African American) 111.2 ml/min; Est GFR (Non-African American) 95.9 ml/min; Potassium 4.6 mmol/L (3.5-5.1)
[2021-11-24] MEDS: FOLIC ACID 1 MG TAB PO SCH (08:47)
[2021-11-24] MEDS: FERROUS SULFATE 325 MG TAB PO SCH ×2 (08:47→22:00)
[2021-11-24] MEDS: METOPROLOL TARTRATE 25 MG TAB PO SCH ×2 (08:47→22:01)
[2021-11-24] MEDS: ASPIRIN 81 MG ECTAB PO SCH (08:47)
[2021-11-24] MEDS: DOCUSATE SODIUM/SENNA 50/8.6MG TAB PO SCH (08:48)
[2021-11-24] MEDS: ADVANCED PROBIOTIC 1250 MG CAPSULE PO SCH (08:48)
[2021-11-24] MEDS: PANTOprazole 40 MG TAB PO SCH (08:48)
[2021-11-24] MEDS: CLOPIDOGREL BISULFATE 75 MG TAB PO SCH (08:48)
[2021-11-24] MEDS: CALCITRIOL 0.25 MCG CAPSULE PO SCH (08:48)
[2021-11-24] MEDS: POTASSIUM CHLORIDE 20 MEQ/15 ML UDC PO SCH (08:48)
[2021-11-24] MEDS: INSULIN GLARGINE SOLOSTAR 100 UNITS/ML 3 ML PEN SC SCH (09:00)
--- NOTE | 2021-11-24 10:21 | Progress Notes ---
DATE OF SERVICE: 11/23/2021 The patient is resting comfortably in bed, status post surgery on his left foot, postoperative day #1 . I discussed with him the findings relative to his operative procedure and we discussed the plan mov ing forward. He is afebrile. His vital signs are stable. He has acute postsurgical anemia. His hemoglobin is 7. 8. White count normal. His labs are otherwise noted. His wound VAC is functioning. The splint is intact, clean and dry. Discussed with him avoiding pres sure on the lateral side of the ankle as he has developed a pressure sore over there and will need a release. We did cut out a relief on the heel in his splint to prevent any further pressure there. Postoperative day #1, status post left foot transmetatarsal amputation with debridement of multiple i schemic areas of the left heel and application of wound VAC. PLAN: I spoke with wound care nurse. Plan is to change the VAC on Monday and will reinspect the wou nds at that time. There was a very good bleeding throughout the forefoot, but not so much in the hin dfoot. He also has a pressure area of the lateral malleolus, which is dressed with Optifoam. Recomm end pressure relief there. I will also consult with wound care nurse. Would recommend removing his Rodgers unless the medical service feels that it is necessary to continue. The necrotic/infected areas have been removed. I think a short course of postoperative IV antibiot ics 48-72 hours would be appropriate. Continue heparin for DVT prophylaxis and encourage p.o. nutrit ion. Job ID: [id number]
--- NOTE | 2021-11-24 13:55 | Surgery Progress Note ---
Date of Service November 24, 2021 Assessment & Plan (1) S/P femoral-tibial bypass: Plan: Pt doing well post op day #5. Doppler signal in post tib difficult to assess d/t large dressing. Unable to assess ant tib doppler or surgical incisions d/t dressings. Discussed with Dr Eason, would prefer to have at least a window to assess pt's anterior tibial or dp pulses. Will try to discuss with Dr Soto to see if this is possible. Admission and Anticipated Discharge Date Admission Date: November 10, 2021 Subjective 66 yo m POD #5 after LLE fem-ant tib bypass, seen in f/u today. Pt admits some pain in LLE, but not more than expected. Underwent TMA and heel debridement by ortho yesterday in OR. No new complaints. Review of Systems Review of Systems: All systems reviewed & are unremarkable except as noted in HPI & below Physical Exam Constitutional: WD/WN, vitals as above cooperative and comfortable; not in distress Cardiovascular: Vessels: radial pulses present; + abnormal peripheral pulses (RLE amputation, LLE post tib +doppler, ant tib unable to assess) Skin: + wound (dressings in place to LLE) and + incision (LLE C/D/I with sharri. ) Neurologic: moves all extremities and awake; no focal motor deficits and not confused Psychiatric: A+Ox3, euthymic affect Results & Data ([facility]) Vital Signs (Past 12 Hours) Vital Signs Temp Pulse Pulse Resp BP Pulse Ox 11/24/21 10:43 36.8 C 85 20 113/52 L 100 11/24/21 08:00 77 11/24/21 07:31 36.8 C 79 20 118/51 L 98 11/24/21 02:45 36.5 C 81 18 125/43 L 99
--- NOTE | 2021-11-24 14:42 | Pharmacy Report ---
Pharmacy Glycemic Short Note 2 - Date of Service November 24, 2021 - Glycemic Short BSG Results (Last 24 hours): 11/23/21 11/23/21 11/23/21 15:29 16:32 17:24 Glucose POC Glucose 195 H 244 H 251 H 11/23/21 11/24/21 11/24/21 20:08 00:00 04:28 Glucose POC Glucose 196 H 177 H 129 H 11/24/21 11/24/21 11/24/21 07:29 07:40 11:37 Glucose 114 H POC Glucose 112 H 202 H OUTPATIENT ANTIDIABETIC REGIMEN: * Novolog insulin pump: ~53 units/day * Basal: 1.65 units/hr (39.6 units/day) * Correction Factor: 30 mg/dL/unit * Nutritional / Prandial insulin per carb ratio of 1 unit per 6 grams CHO consumed * HbA1c: 8.0% (11/11/21) ASSESSMENT: 11/24 * BSGs reasonable for this patient over last 24 hrs given his lability * Fasting BSG 112 this AM with 30 units Lantus on board and after receipt of 5 units Novolog correction overnight. Patient is now tolerating a diet, will resume the higher basal insulin dose ordered prior to NPO status yesterday * Given pre-lunch hyperglycemia trend, will increase prandial insulin dose w/ breakfast meal only. 11/23 * NPO for possible amputation today * BSG's were significantly elevated yesterday until HS, where they dropped to 66 mg/dL. Etiology likely overcorrection with Novolog due to a 2nd dose administered at dinner. CHO ratio was loosened at that time. BSG's then climbed overnight and are again elevated this AM * Will reduce Lantus for NPO status today, although not terribly aggressively due to T1DM and AM fasting BSG >180 mg/dL * Will changing Novolog to q4h 2nd NPO and tighten CHO ratio back to yesterday's in anticipation of diet again being ordered post-op 11/22 * POD3, BSGs climbing today. Patient's BSG in 90s at bedtime last evening to awaken with BSGs in 300s this AM. RN reports BSG was pre-prandial and patient had not eating prior. Of note, pt's BSGs frequently not explainable with wide fluctuations (both highs and lows) despite insulin adjustments. Total daily insulin requirements can range 40 to 150+ units/day. * Basal insulin dose increased this AM. * Will attempt to gain control of hyperglycemia with more frequent Novolog dosing with larger correctional doses rather than increasing basal dose any further. He will likely be returning to the OR tomorrow and will be NPO if this is the case. 11/21 * POD2, blood sugars elevated today, unsure why, RN not able to determine if patient snacking? * Patient did have lower dose of basal yesterday, increased today, increase further tomorrow * Tighten CF/CR to 15/3.5 with lunch (BSG 353mg/dl --> 193mg/dl), then /4 thereafter PLAN FOR INPATIENT GLYCEMIC CONTROL: * Basal insulin * Lantus 38 units SQ Q AM * Bolus insulin - * NovoLog per scale q4h * Goal Range: Low 120 mg/dL - High 150 mg/dL * Correction Factor: 20 mg/dL/unit * Nutritional / Prandial insulin per carb ratio of 1 unit per 3.5 grams CHO consumed w/ breakfast + 1 unit per 4 grams CHO consumed w/ other meals
--- NOTE | 2021-11-24 16:16 | Hospitalist Progress Note ---
Date of Service November 24, 2021 Assessment & Plan (1) Diabetic ulcer of left foot: Plan: - LLE erythema and edema that goes slightly above malleolus with several skin fissures, necrotic ulcerated wound on 1.) medial aspect of L great toe with eschar, 2.) medial aspect of third toe with some drainage and eschar, 3.) on upper lateral border of left sole with eschar, and 4.) on heel of left foot with necrotic tissue. - XR - soft tissue swelling with no acute bony abnormality identified. Tib/fib with old healed fractures of the distal tibia and fibula with post-traumatic deformity present; OA - Wound Cx - Pseudomonas and S. 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 Left femoral to PT composite bypass graft (06/2020). - S/P angio and S/P L fem-anterior tibial bypass with Dr Eason on 11/19 - Initially treated with heparin gtt on admission until intervention - for complete occlusion of the [place] superficial femoral and popliteal arteries; bypass graft extending from superficial femoral artery to the posterior tibial artery with near complete to complete occlusion below the knee; no flow shown within the peroneal artery; anterior and posterior tibial arteries appear patent - Statin on hold while on dapto, CK WNL and will check weekly - Continue doppler check (currently dressing in place) (3) Diabetes mellitus type 1: Plan: Uncontrolled, has insulin pump outside of here and typically when off usual pump does have fluctuations Pharmacy on consult and managing (4) CAD (coronary artery disease): Plan: - S/P CABG x 1 (2015). Aortic Stenosis S/P porcine AV - Continue DAPT w/ ASA and Plavix, and metoprolol. - Hold statin for Dapto as above (5) Clostridium difficile colitis: Plan: H/O -- previously on slow long taper of po Vanc last admission Has occassional constipation but having more frequent loose stools which is likely due to Abx - no abdominal pain; afebrile; less BMs today -- C. diff rechecked x 2 this admission and negative - On probiotic while on abx therapy --> sometimes black stool but on iron supplementation - Recent c-scope w/o abnormality (6) Hypertension: Plan: - Patient initially hypotensive in ED and responded to fluid bolus - BPs acceptable 119/61 and continues on metoprolol 12.5 mg BID (7) Dyslipidemia: Plan: - Statin now held given Dapto as above (8) Hypothyroidism: Plan: - Continue Levothyroxine (9) Diabetic nephropathy associated with type 1 diabetes mellitus: Plan: - CKD stage 3; STABLE - Continue daily iron, calcitriol, and potassium supplement. - Renally dose all medications, avoid nephrotoxic agents. (10) Hyponatremia: Plan: - Chronic; Asymptomatic at 133 - continue to monitor - TSH WNL (11) Folate deficiency: Plan: - Folate 4.6 May 2021 and remains on folic acid supplementation. - B12 checked --> 284 low normal and ordered IM replacement while inpatient (12) Below-knee amputation of right lower extremity: Plan: - June 2021. No acute issues. - Follows with Dr. Soto --> has prosthetic in room, hoping to be able to use some as had been in hospital much since he got and wants to get used to using it Plan: Vac and wound check on Monday; consideration for rehab on DC Daughter Loulou ([phone] - number given by patient). Patient has been updating her and is a good historian. Admission and Anticipated Discharge Date Admission Date: November 10, 2021 Subjective No acute events overnight. Doing well from a pain perspective after surgery. Only complains of buttocks pain from being in the bed for awhile. Did work with therapy this AM. Hgb lower but asymptomatic and vitals stable. He is tolerating a diet. No further frequent loose stools at this time. Verbalizes no new complaints. Review of Systems Review of Systems: All systems reviewed & are unremarkable except as noted in Subjective Physical Exam Physical Exam: PHYSICAL EXAM General Appearance: WDWN in NAD who is A&O x 3 HEENT: Head is normocephalic/atraumatic; Hearing grossly intact; Mucous membranes moist Neck: Supple; Trachea midline; Neg JVD Heart: RRR with no M/G/R Lungs: CTA in all lung fuller bilaterally; Respirations unlabored; Neg accessory muscle use Abdomen: Soft, non-tender, non-distended; Positive BS x 4 quadrants Extremities: R BKA with prosthetic in-place; L foot/ankle currently wrapped with surgical dressing to knee with wound vac tubing visible Neurological: Speech clear; Gross motor/sensory function intact; Neg focal neurologic deficits Psychiatric: Appropriate mood/affect Skin: Normal Color; Warm/Dry; other than mentioned above Results & Data Results & Data ([facility]) Vital Signs (Past 12 Hours) Vital Signs Temp Pulse Pulse Resp BP Pulse Ox 11/24/21 15:23 36.9 C 87 19 116/53 L 95 11/24/21 10:43 36.8 C 85 20 113/52 L 100 11/24/21 08:00 77 11/24/21 07:31 36.8 C 79 20 118/51 L 98 PG Care Time/CCT Total # of Minutes Spent Total Time Spent with Patient: Total time spent is greater than 50% in coordination of care (as documented) at patient's floor/unit and/or counseling patient: Coding Level of Care Code 72565 Subseq Hosp Care Lvl 3 Diagnoses Diabetic ulcer of left foot E11.621; L97.529 PVD (peripheral vascular disease) I73.9 Diabetes mellitus type 1 E10.9 CAD (coronary artery disease) I25.10 Coronary Disease-Associated Artery/Lesion type: [place] artery [place] vs. transplanted heart: [place] heart Associated angina: without angina Clostridium difficile colitis A04.72 Hypertension I10 Hypertension type: unspecified Dyslipidemia E78.5 Hypothyroidism E03.9 Hypothyroidism type: unspecified Diabetic nephropathy associated with type 1 diabetes mellitus E10.21 Hyponatremia E87.1 Folate deficiency E53.8 Below-knee amputation of right lower extremity S88.111A (1) CAD (coronary artery disease) Coronary Disease-Associated Artery/Lesion type: [place] artery [place] vs. transplanted heart: [place] heart Associated angina: without angina Qualified Code(s): I25.10 - Atherosclerotic heart disease of [place] coronary artery without angina pectoris (2) Hypertension Hypertension type: unspecified Qualified Code(s): I10 - Essential (primary) hypertension (3) Hypothyroidism Hypothyroidism type: unspecified Qualified Code(s): E03.9 - Hypothyroidism, unspecified
[2021-11-24] MEDS: DAPTOmycin 425 MG in SYRINGE 0 ML IV SCH (16:17)
[2021-11-24] MEDS: CARBOHYDRATES FOR HYPOGLYCEMIA PO PRN (16:34)
[2021-11-24] MEDS: HEPARIN SOD 5,000 UNIT/0.5 ML VIAL SQ SCH (22:00)
[2021-11-25] MEDS ORDERED: INSULIN ASPART PER UNIT SC ONE (02:00)
[2021-11-25] MEDS: LEVOTHYROXINE SODIUM 175 MCG TABLET PO SCH (05:30)
[2021-11-25 06:39] LABS: Basophils # (auto) 0.09 K/uL (0-0.2); Basophils % (auto) 0.9 %; Eosinophils # (auto) 0.62 K/uL (0-0.5); Hematocrit (blood only) 22.1 % (42-52); Hemoglobin 7.2 g/dL (14.0-18.0); Immature Granulocytes # (auto) 0.03 K/uL (0.00-0.02); Immature Granulocytes % (auto) 0.3 %; Lymphocytes # (auto) 1.65 K/uL (1.2-3.4); Lymphocytes % (auto) 16.1 %; Mean Corpuscular Hemoglobin 28.9 pg (25-34); Mean Corpuscular Hgb Conc 32.6 g/dL (32-36); Mean Corpuscular Volume 88.8 fL (80-100); Mean Platelet Volume 8.7 fL (7.4-10.4); Monocytes # (auto) 1.08 K/uL (0.11-0.59); Monocytes % (auto) 10.5 %; Neutrophils # (auto) 6.79 K/uL (1.4-6.5); Neutrophils % (auto) 66.2 %; Platelet Count 439 K/uL (130-400); RDW Standard Deviation 48.1 fL (36.4-46.3); Red Blood Count 2.49 M/uL (4.7-6.1); White Blood Count 10.26 K/uL (4.8-10.8)
[2021-11-25 07:01] LABS: RBC Morphology Unremarkable
[2021-11-25] MEDS: INSULIN ASPART PER UNIT SC SCH ×4 (08:36→20:49)
[2021-11-25] MEDS: INSULIN GLARGINE SOLOSTAR 100 UNITS/ML 3 ML PEN SC SCH (08:37)
[2021-11-25] MEDS: PIPERACILLIN/TAZOBACTAM 3.375 GM in DEXTROSE 5% 100 ML IV SCH ×2 (09:02→16:49)
[2021-11-25] MEDS: FOLIC ACID 1 MG TAB PO SCH (09:04)
[2021-11-25] MEDS: DOCUSATE SODIUM/SENNA 50/8.6MG TAB PO SCH (09:04)
[2021-11-25] MEDS: ASPIRIN 81 MG ECTAB PO SCH (09:04)
[2021-11-25] MEDS: ADVANCED PROBIOTIC 1250 MG CAPSULE PO SCH (09:04)
[2021-11-25] MEDS: METOPROLOL TARTRATE 25 MG TAB PO SCH ×2 (09:04→20:48)
[2021-11-25] MEDS: PANTOprazole 40 MG TAB PO SCH (09:04)
[2021-11-25] MEDS: POTASSIUM CHLORIDE 20 MEQ/15 ML UDC PO SCH (09:05)
[2021-11-25] MEDS: HEPARIN SOD 5,000 UNIT/0.5 ML VIAL SQ SCH ×2 (09:05→20:48)
[2021-11-25] MEDS: FERROUS SULFATE 325 MG TAB PO SCH ×2 (09:05→20:48)
[2021-11-25] MEDS: CLOPIDOGREL BISULFATE 75 MG TAB PO SCH (10:40)
[2021-11-25] MEDS: CALCITRIOL 0.25 MCG CAPSULE PO SCH (10:41)
--- NOTE | 2021-11-25 12:50 | Hospitalist Progress Note ---
Date of Service November 25, 2021 Assessment & Plan (1) Diabetic ulcer of left foot: Plan: - LLE erythema and edema that goes slightly above malleolus with several skin fissures, necrotic ulcerated wound on 1.) medial aspect of L great toe with eschar, 2.) medial aspect of third toe with some drainage and eschar, 3.) on upper lateral border of left sole with eschar, and 4.) on heel of left foot with necrotic tissue. - XR - soft tissue swelling with no acute bony abnormality identified. Tib/fib with old healed fractures of the distal tibia and fibula with post-traumatic deformity present; OA - Wound Cx - Pseudomonas and S. 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 - Acute blood loss anemia in setting of recent vascular surgery and now transmetatarsal surgery - currently at 7.1 but vitals stable and he is asymptomatic and will monitor - Orthopedics following - S/P transmetatarsal amputation on 11/23 and plans for wound check on 11/26 - Wound care following (2) PVD (peripheral vascular disease): Plan: -B/L iliac artery stents (2014), R common/external iliac (2017), R common femoral endarterectomy (11/2018) with bovine patch. Left femoral to PT composite bypass graft (06/2020). - S/P angio and S/P L fem-anterior tibial bypass with Dr Eason on 11/19 - Initially treated with heparin gtt on admission until intervention - for complete occlusion of the [place] superficial femoral and popliteal arteries; bypass graft extending from superficial femoral artery to the posterior tibial artery with near complete to complete occlusion below the knee; no flow shown within the peroneal artery; anterior and posterior tibial arteries appear patent - Statin on hold while on dapto, CK WNL and will check weekly (next 3/18) - Continue doppler checks (3) Diabetes mellitus type 1: Plan: Uncontrolled, has insulin pump outside of here and typically when off usual pump does have fluctuations Pharmacy on consult and managing (4) CAD (coronary artery disease): Plan: - S/P CABG x 1 (2015). Aortic Stenosis S/P porcine AV - Continue DAPT w/ ASA and Plavix, and metoprolol. - Hold statin for Dapto as above (5) Clostridium difficile colitis: Plan: H/O -- previously on slow long taper of po Vanc last admission Has occassional constipation but having more frequent loose stools which is likely due to Abx - no abdominal pain; afebrile; less BMs today -- C. diff rechecked x 2 this admission and negative - On probiotic while on abx therapy --> sometimes black stool but on iron supplementation - Recent c-scope w/o abnormality (6) Hypertension: Plan: - Patient initially hypotensive in ED and responded to fluid bolus - BPs acceptable and continues on metoprolol 12.5 mg BID (7) Dyslipidemia: Plan: - Statin now held given Dapto as above (8) Hypothyroidism: Plan: - Continue Levothyroxine (9) Diabetic nephropathy associated with type 1 diabetes mellitus: Plan: - CKD stage 3; STABLE - Continue daily iron, calcitriol, and potassium supplement. - Renally dose all medications, avoid nephrotoxic agents. (10) Hyponatremia: Plan: - Chronic; Asymptomatic at 133 - continue to monitor - TSH WNL (11) Folate deficiency: Plan: - Folate 4.6 May 2021 and remains on folic acid supplementation. - B12 checked --> 284 low normal and ordered IM replacement while inpatient (12) Below-knee amputation of right lower extremity: Plan: - June 2021. No acute issues. - Follows with Dr. Soto --> has prosthetic in room, hoping to be able to use some as had been in hospital much since he got and wants to get used to using it Plan: Vac and wound check on Monday; consideration for rehab on DC Daughter Loulou ([phone] - number given by patient). Patient has been updating her and is a good historian. Admission and Anticipated Discharge Date Admission Date: November 10, 2021 Supervising Physician Co-Signing Physician Notes Attending Attestation - Chart reviewed in detail, care plan d/w BENITO Fitzgerald. I agree with the perez components of her documentation. Isaac Segovia MD Subjective No acute events overnight. States he feels well just not enjoying being stuck in the bed. Tolerating a diet without issue. Pain is controlled. Review of Systems Review of Systems: All systems reviewed & are unremarkable except as noted in Subjective Physical Exam Physical Exam: PHYSICAL EXAM General Appearance: WDWN in NAD who is A&O x 3 HEENT: Head is normocephalic/atraumatic; Hearing grossly intact; Mucous membranes moist Neck: Supple; Trachea midline; Neg JVD Heart: RRR with no M/G/R Lungs: CTA in all lung fuller bilaterally; Respirations unlabored; Neg accessory muscle use Abdomen: Soft, non-tender, non-distended; Positive BS x 4 quadrants Extremities: R BKA with prosthetic in-place; L foot/ankle currently wrapped with surgical dressing to knee with wound vac tubing visible Neurological: Speech clear; Gross motor/sensory function intact; Neg focal neurologic deficits Psychiatric: Appropriate mood/affect Skin: Normal Color; Warm/Dry; other than mentioned above Results & Data Results & Data ([facility]) Vital Signs (Past 12 Hours) Vital Signs Temp Pulse Resp BP Pulse Ox 11/25/21 07:53 36.9 C 73 20 143/62 H 98 11/25/21 04:08 36.7 C 75 18 108/51 L 100 PG Care Time/CCT Total # of Minutes Spent Total Time Spent with Patient: Total time spent is greater than 50% in coordination of care (as documented) at patient's floor/unit and/or counseling patient: Coding Level of Care Code 77983 Subseq Hosp Care Lvl 2 Diagnoses Diabetic ulcer of left foot E11.621; L97.529 PVD (peripheral vascular disease) I73.9 Diabetes mellitus type 1 E10.9 CAD (coronary artery disease) I25.10 Associated angina: without angina Coronary Disease-Associated Artery/Lesion type: [place] artery [place] vs. transplanted heart: [place] heart Clostridium difficile colitis A04.72 Hypertension I10 Hypertension type: unspecified Dyslipidemia E78.5 Hypothyroidism E03.9 Hypothyroidism type: unspecified Diabetic nephropathy associated with type 1 diabetes mellitus E10.21 Hyponatremia E87.1 Folate deficiency E53.8 Below-knee amputation of right lower extremity S88.111A (1) CAD (coronary artery disease) Associated angina: without angina Coronary Disease-Associated Artery/Lesion type: [place] artery [place] vs. transplanted heart: [place] heart Qualified Code(s): I25.10 - Atherosclerotic heart disease of [place] coronary artery without angina pectoris (2) Hypothyroidism Hypothyroidism type: unspecified Qualified Code(s): E03.9 - Hypothyroidism, unspecified (3) Hypertension Hypertension type: unspecified Qualified Code(s): I10 - Essential (primary) hypertension
--- NOTE | 2021-11-25 13:15 | Pharmacy Report ---
Pharmacy Glycemic Short Note 2 - Date of Service November 25, 2021 - Glycemic Short BSG Results (Last 24 hours): 11/24/21 11/24/21 11/24/21 16:29 16:31 16:50 POC Glucose 61 L* 55 L* 60 L* 11/24/21 11/24/21 11/25/21 17:32 20:44 01:07 POC Glucose 78 111 H 162 H 11/25/21 11/25/21 07:42 11:11 POC Glucose 209 H 227 H OUTPATIENT ANTIDIABETIC REGIMEN: * Novolog insulin pump: ~53 units/day * Basal: 1.65 units/hr (39.6 units/day) * Correction Factor: 30 mg/dL/unit * Nutritional / Prandial insulin per carb ratio of 1 unit per 6 grams CHO consumed * HbA1c: 8.0% (11/11/21) ASSESSMENT: 11/25 * Pre-dinner hypoglycemia observed yesterday. This may be due to insulin "stacking" as most recent prandial insulin change was to allow for a larger prandial dose w/ breakfast which has helped with pre-lunch highs. Will continue larger prandial doses w/ breakfast however lessen prandial doses with other meals to decrease hypoglycemia risk. * Fasting BSG elevated this AM, however BSG 113-162 overnight which makes me hesitant to adjust basal insulin dose. Current basal dose is nearly equivalent to that provided by insulin pump. 11/24 * BSGs reasonable for this patient over last 24 hrs given his lability * Fasting BSG 112 this AM with 30 units Lantus on board and after receipt of 5 units Novolog correction overnight. Patient is now tolerating a diet, will resume the higher basal insulin dose ordered prior to NPO status yesterday * Given pre-lunch hyperglycemia trend, will increase prandial insulin dose w/ breakfast meal only. 11/23 * NPO for possible amputation today * BSG's were significantly elevated yesterday until HS, where they dropped to 66 mg/dL. Etiology likely overcorrection with Novolog due to a 2nd dose administered at dinner. CHO ratio was loosened at that time. BSG's then climbed overnight and are again elevated this AM * Will reduce Lantus for NPO status today, although not terribly aggressively due to T1DM and AM fasting BSG >180 mg/dL * Will changing Novolog to q4h 2nd NPO and tighten CHO ratio back to yesterday's in anticipation of diet again being ordered post-op 11/22 * POD3, BSGs climbing today. Patient's BSG in 90s at bedtime last evening to awaken with BSGs in 300s this AM. RN reports BSG was pre-prandial and patient had not eating prior. Of note, pt's BSGs frequently not explainable with wide fluctuations (both highs and lows) despite insulin adjustments. Total daily insulin requirements can range 40 to 150+ units/day. * Basal insulin dose increased this AM. * Will attempt to gain control of hyperglycemia with more frequent Novolog dos ing with larger correctional doses rather than increasing basal dose any further. He will likely be returning to the OR tomorrow and will be NPO if this is the case. PLAN FOR INPATIENT GLYCEMIC CONTROL: * Basal insulin * Lantus 38 units SQ Q AM * Bolus insulin - * NovoLog per scale q4h * Goal Range: Low 120 mg/dL - High 150 mg/dL * Correction Factor: 20 mg/dL/unit with breakfast, 30mg/dL/unit with other BSG checks * Nutritional / Prandial insulin per carb ratio of 1 unit per 3.5 grams CHO consumed w/ breakfast + 1 unit per 6 grams CHO consumed w/ other meals
--- NOTE | 2021-11-25 14:11 | Surgery Progress Note ---
Date of Service November 25, 2021 Assessment & Plan (1) S/P femoral-tibial bypass: Plan: This patient is post femoral to tibial bypass grafting. He also underwent transmetatarsal amputation of the foot. From a vascular standpoint he is doing well. The graft is working nicely. We will see him in the office in 2 weeks for follow-up. Please call us if needed. Thank you very much for letting us participate in the care of this patient. Admission and Anticipated Discharge Date Admission Date: November 10, 2021 Subjective Patient is complaining of minimal pain in his foot. Physical Exam Physical Exam: His incisions of his lower extremity are healing nicely. He is has an excellent Doppler dorsalis pedis pulse. Incisions are dry and clean. Results & Data ([facility]) Vital Signs (Past 12 Hours) Vital Signs Temp Pulse Pulse Resp BP Pulse Ox 11/25/21 08:00 73 11/25/21 07:53 36.9 C 73 20 143/62 H 98 11/25/21 04:08 36.7 C 75 18 108/51 L 100
[2021-11-25] MEDS: DAPTOmycin 425 MG in SYRINGE 0 ML IV SCH (14:55)
[2021-11-25] MEDS: ACETAMINOPHEN 325 MG TAB PO PRN (18:50)
[2021-11-25] MEDS: oxyCODONE HCL IR 5 MG TAB (IMMEDIATE RELEASE) PO PRN (20:47)
[2021-11-26] MEDS: PIPERACILLIN/TAZOBACTAM 3.375 GM in DEXTROSE 5% 100 ML IV SCH ×4 (00:02→23:45)
[2021-11-26] MEDS: oxyCODONE HCL IR 5 MG TAB (IMMEDIATE RELEASE) PO PRN (03:00)
[2021-11-26] MEDS: LEVOTHYROXINE SODIUM 175 MCG TABLET PO SCH (05:53)
[2021-11-26] MEDS: ACETAMINOPHEN 325 MG TAB PO PRN (06:22)
[2021-11-26 06:54] LABS: Hematocrit (blood only) 24.6 % (42-52); Hemoglobin 7.9 g/dL (14.0-18.0); Mean Corpuscular Hemoglobin 28.8 pg (25-34); Mean Corpuscular Hgb Conc 32.1 g/dL (32-36); Mean Corpuscular Volume 89.8 fL (80-100); Mean Platelet Volume 8.8 fL (7.4-10.4); Platelet Count 551 K/uL (130-400); RDW Coefficient of Variation 15.4 % (11.5-14.5); RDW Standard Deviation 49.3 fL (36.4-46.3); Red Blood Count 2.74 M/uL (4.7-6.1); White Blood Count 13.45 K/uL (4.8-10.8)
[2021-11-26] MEDS: INSULIN ASPART PER UNIT SC SCH ×5 (10:04→20:56)
[2021-11-26] MEDS: FOLIC ACID 1 MG TAB PO SCH (10:05)
[2021-11-26] MEDS: INSULIN GLARGINE SOLOSTAR 100 UNITS/ML 3 ML PEN SC SCH (10:05)
[2021-11-26] MEDS: CALCITRIOL 0.25 MCG CAPSULE PO SCH (10:06)
[2021-11-26] MEDS: DOCUSATE SODIUM/SENNA 50/8.6MG TAB PO SCH (10:06)
[2021-11-26] MEDS: ASPIRIN 81 MG ECTAB PO SCH (10:06)
[2021-11-26] MEDS: ADVANCED PROBIOTIC 1250 MG CAPSULE PO SCH (10:06)
[2021-11-26] MEDS: METOPROLOL TARTRATE 25 MG TAB PO SCH ×2 (10:06→20:51)
[2021-11-26] MEDS: FERROUS SULFATE 325 MG TAB PO SCH ×2 (10:06→20:51)
[2021-11-26] MEDS: PANTOprazole 40 MG TAB PO SCH (10:06)
[2021-11-26] MEDS: POTASSIUM CHLORIDE 20 MEQ/15 ML UDC PO SCH (10:06)
[2021-11-26] MEDS: HEPARIN SOD 5,000 UNIT/0.5 ML VIAL SQ SCH ×2 (10:07→20:51)
--- NOTE | 2021-11-26 11:24 | Pharmacy Report ---
Pharmacy Glycemic Short Note 2 - Date of Service November 26, 2021 - Glycemic Short BSG Results (Last 24 hours): 11/25/21 11/25/21 11/25/21 16:18 17:05 20:00 POC Glucose 73 101 H 160 H 11/26/21 07:34 POC Glucose 165 H OUTPATIENT ANTIDIABETIC REGIMEN: * Novolog insulin pump: ~53 units/day * Basal: 1.65 units/hr (39.6 units/day) * Correction Factor: 30 mg/dL/unit * Nutritional / Prandial insulin per carb ratio of 1 unit per 6 grams CHO consumed * HbA1c: 8.0% (11/11/21) ASSESSMENT: 11/26 * Glycemic control acceptable for this patient over last 24 hrs given lability * Fasting BSG 165 this AM w/ 38 units Lantus on board - acceptable for this patient, will continue * Pre-lunch hyperglycemia acceptable with AM Novolog dose, however BSG again fell quickly prior to dinner. Will lessen prandial insulin doses with lunch and dinner to prevent hypoglycemia 11/25 * Pre-dinner hypoglycemia observed yesterday. This may be due to insulin "stacking" as most recent prandial insulin change was to allow for a larger prandial dose w/ breakfast which has helped with pre-lunch highs. Will continue larger prandial doses w/ breakfast however lessen prandial doses with other meals to decrease hypoglycemia risk. * Fasting BSG elevated this AM, however BSG 113-162 overnight which makes me hesitant to adjust basal insulin dose. Current basal dose is nearly equivalent to that provided by insulin pump. 11/24 * BSGs reasonable for this patient over last 24 hrs given his lability * Fasting BSG 112 this AM with 30 units Lantus on board and after receipt of 5 units Novolog correction overnight. Patient is now tolerating a diet, will resume the higher basal insulin dose ordered prior to NPO status yesterday * Given pre-lunch hyperglycemia trend, will increase prandial insulin dose w/ breakfast meal only. 11/23 * NPO for possible amputation today * BSG's were significantly elevated yesterday until HS, where they dropped to 66 mg/dL. Etiology likely overcorrection with Novolog due to a 2nd dose adminis tered at dinner. CHO ratio was loosened at that time. BSG's then climbed overnight and are again elevated this AM * Will reduce Lantus for NPO status today, although not terribly aggressively due to T1DM and AM fasting BSG >180 mg/dL * Will changing Novolog to q4h 2nd NPO and tighten CHO ratio back to yesterday's in anticipation of diet again being ordered post-op PLAN FOR INPATIENT GLYCEMIC CONTROL: * Basal insulin * Lantus 38 units SQ Q AM * Bolus insulin - * NovoLog per scale q4h * Goal Range: Low 120 mg/dL - High 150 mg/dL * Correction Factor: 20 mg/dL/unit with breakfast 30mg/dL/unit with other BSG checks and only correct if BSG > 160 * Nutritional / Prandial insulin per carb ratio of 1 unit per 3.5 grams CHO consumed w/ breakfast + 1 unit per 8 grams CHO consumed w/ other meals
[2021-11-26] MEDS: CLOPIDOGREL BISULFATE 75 MG TAB PO SCH (12:31)
[2021-11-26] MEDS: DAPTOmycin 425 MG in SYRINGE 0 ML IV SCH (14:25)
--- NOTE | 2021-11-26 15:18 | Progress Notes ---
DATE OF SERVICE: 11/26/2021. The patient is resting comfortably in bed. No problems are noted. He is afebrile. His vital signs are stable. He reports that his vascular evaluations have gone well. He is on subcutaneous heparin for DVT prophylaxis. White count today 13.5, hemoglobin 8, hematocrit 25, platelets 551. Splint removed. Wound VAC removed. The vascular surgical incisions are benign in appearance. There is dried blood distally. The dressing was removed and the foot was cleaned of residual blood. The transmetatarsal amputation looks great. Wound margins without necrosis. There was no active bleedin g. Swelling was mild to moderate. Heel wounds were evaluated and there were some yellowish fat more so lateral versus posterior where there was a little bit more granulation tissue present, but scant granulation tissue throughout. A little bit of bleeding on the far medial small wound. The upper la teral leg wound looks okay. Optifoam was applied there. She applied the wound VAC. We redressed t he left, leaving spaces for the pulse checks. Splint with a cutout heel relief. Xeroform, 4 x 4s, A BD, soft wrap and James wrap. Doing well status post transmetatarsal amputation of the left foot. We will continue wound VAC for w ound care treatments. There is no evidence of infection. We will continue wound care. Wound VAC duran Monday, Monday, Monday. We will continue to monitor. He is nonweightbearing on the left le g. Job ID: [id number]
[2021-11-26] MEDS: CARBOHYDRATES FOR HYPOGLYCEMIA PO PRN ×2 (15:47→16:14)
[2021-11-26] MEDS: NYSTATIN POWDER 15GM BTL EXT SCH ×2 (18:06→20:52)
[2021-11-27] MEDS: oxyCODONE HCL IR 5 MG TAB (IMMEDIATE RELEASE) PO PRN (05:00)
[2021-11-27] MEDS: LEVOTHYROXINE SODIUM 175 MCG TABLET PO SCH (06:03)
--- NOTE | 2021-11-27 06:11 | Hospitalist Progress Note ---
Date of Service November 26, 2021 Assessment & Plan (1) Diabetic ulcer of left foot: Plan: Presented with L great toe infection/eschar, 3rd toe infection/dry gangrene, 4th toe dry gangrene, heel necrotic tissue, etc. Wound cx with pansensitive Pseudomonas and S. Aureus (MSSA). Remains on zosyn + daptomycin (being used for MSSA, but also with h/o VRE). s/p TMA on 11/23/[address] Soto. Woundvac in place and exchanged today by Dr Soto/wound care team. Woundvac changes planned M/W/F. NWB status to LLE. Need for ongoing IV abx since source control has been completed? (ie - TMA on 11/23) Check sed rate/crp in am. Will d/w orthopedics. (2) PVD (peripheral vascular disease): Plan: Prior history of B/L iliac artery stents (2014), R common/external iliac (2017), R common femoral endarterectomy (11/2018) with bovine patch. Left femoral to PT composite bypass graft (06/2020). This admission -- S/P L fem-anterior tibial bypass with Dr Eason on 11/19/21. Per Dr Eason he is pleased from a vascular standpoint. Remains on aspirin, plavix; statin on hold due to daptomycin use. (3) Diabetes mellitus type 1: Plan: Uncontrolled and labile. On insulin pump at home - this is on hold. Pharmacy on consult and managing with basal-bolus regimen. (4) CAD (coronary artery disease): Plan: S/P CABG x 1 (2015). Aortic Stenosis S/P porcine AV Continue ASA, metoprolol, and Plavix. Statin on hold 2nd daptomycin usage. Most recent CPK wnl. (5) Clostridium difficile colitis: Plan: H/O -- previously on slow long taper of po Vanc last admission. C. diff checked x 2 this admission -- both negative. He is having rectal pain - has prior h/o proctitis. Cont probiotics. If rectal pain persists - check CT abd/pelvis. (6) Hypertension: Plan: Cont metoprolol 12.5 mg BID (7) Dyslipidemia: (8) Hypothyroidism: Plan: Continue Levothyroxine TSH 11/2021 wnl (9) Diabetic nephropathy associated with type 1 diabetes mellitus: Plan: Continue daily iron, calcitriol, and potassium supplement. Ideally should be on low-dose ERIC or ARB. (10) Hyponatremia: Plan: Mild. recheck bmp am. (11) Folate deficiency: Plan: history of such 03/2021 - replaced with folate since then. B12 level this admission low-normal -- was given IM supplementation earlier in the visit. Will start on PO supplementation. recheck folate tomorrow and if normal can stop the folate supplement. (12) Below-knee amputation of right lower extremity: Plan: June [address] Soto - [facility] has prosthesis (13) Candidal diaper rash: Plan: nystatin powder TID ordered (14) Rectal pain: Plan: had proctitis in 04/2021 based on imaging c diff x 2 negative this admission if rectal pain persists would need a CT a/p for further info Plan: Daughter Loulou ([phone] - number given by patient). Will update her tomorrow. Cont PT/OT. Rehab post-d/c?? Admission and Anticipated Discharge Date Admission Date: November 10, 2021 Subjective patient c/o frequent flatus and small amounts of liquid/soft stool he has mild rectal pain denies abdominal pain is eating well - nearly 100% of meals pain in left foot is controlled during the visit denies dyspnea tele overnight wnl pt's sister is at bedside during the visit Dr Soto and Wound Care team exchanged all dressings/wound vac today to L foot Dr Soto stated that the foot was satisfactory and did not show signs of infection Review of Systems Review of Systems: gen - no fevers cv - no orthopnea pulm - no cough GI - no N/V Physical Exam Physical Exam: gen - patient seemingly getting rectal spasm; tenses up in waves during the visit, asking to go on the bedpain mouth - MMM neck - no JVD heart - RRR, s1 s2, 1-2/6 systolic murmur RUSB lungs - CTA b/l abd - soft NT ND BS+ ext - right BKA with sleeve in place; left foot/ankle wrapped in large dressings (I did not remove these); pulses 2+ left foot psych - irritable, a/o x 3 skin - candidal rash groin, perirectal region rectum - ELENA deferred; soft stool on perirectal region, very dark in color; no gross bright red blood Results & Data Results & Data ([facility]) Vital Signs (Past 12 Hours) Vital Signs Temp Pulse Pulse Pulse Resp BP Pulse Ox 11/27/21 04:12 36.7 C 73 16 134/55 L 96 11/26/21 23:35 37.1 C 76 20 118/50 L 98 11/26/21 22:20 75 11/26/21 20:36 37.1 C 77 19 132/49 L 97 Laboratory Results Laboratory Results - last 24 hr 11/26/21 11/26/21 11/26/21 06:20 06:20 07:34 WBC 13.45 H RBC 2.74 L Hgb 7.9 L Hct 24.6 L MCV 89.8 MCH 28.8 MCHC 32.1 RDW Std Deviation 49.3 H RDW Coeff of Chan 15.4 H Plt Count 551 H MPV 8.8 POC Glucose 165 H Total Creatine Kinase 22 L Stool Occult Bld Scrn 11/26/21 11/26/21 11/26/21 11:31 15:43 16:08 WBC RBC Hgb Hct MCV MCH MCHC RDW Std Deviation RDW Coeff of Chan Plt Count MPV POC Glucose 265 H 62 L* 63 L* Total Creatine Kinase Stool Occult Bld Scrn 11/26/21 11/26/21 11/26/21 16:11 16:31 20:40 WBC RBC Hgb Hct MCV MCH MCHC RDW Std Deviation RDW Coeff of Chan Plt Count MPV POC Glucose 65 L* 80 175 H Total Creatine Kinase PG Care Time/CCT Total # of Minutes Spent Total Time Spent with Patient: Total time spent is greater than 50% in coordination of care (as documented) at patient's floor/unit and/or counseling patient: Coding Level of Care Code 56204 Subseq Hosp Care Lvl 2 Diagnoses Diabetic ulcer of left foot E11.621; L97.529 PVD (peripheral vascular disease) I73.9 Diabetes mellitus type 1 E10.9 CAD (coronary artery disease) I25.10 Associated angina: without angina Coronary Disease-Associated Artery/Lesion type: [place] artery [place] vs. transplanted heart: [place] heart Clostridium difficile colitis A04.72 Hypertension I10 Hypertension type: unspecified Dyslipidemia E78.5 Hypothyroidism E03.9 Hypothyroidism type: unspecified Diabetic nephropathy associated with type 1 diabetes mellitus E10.21 Hyponatremia E87.1 Folate deficiency E53.8 Below-knee amputation of right lower extremity S88.111A Candidal diaper rash B37.2; L22 Rectal pain K62.89 (1) CAD (coronary artery disease) Associated angina: without angina Coronary Disease-Associated Artery/Lesion type: [place] artery [place] vs. transplanted heart: [place] heart Qualified Cod e(s): I25.10 - Atherosclerotic heart disease of [place] coronary artery without angina pectoris (2) Hypothyroidism Hypothyroidism type: unspecified Qualified Code(s): E03.9 - Hypothyroidism, unspecified (3) Hypertension Hypertension type: unspecified Qualified Code(s): I10 - Essential (primary) hypertension
[2021-11-27 06:57] LABS: Hematocrit (blood only) 22.5 % (42-52); Hemoglobin 7.1 g/dL (14.0-18.0); Mean Corpuscular Hemoglobin 28.4 pg (25-34); Mean Corpuscular Hgb Conc 31.6 g/dL (32-36); Mean Platelet Volume 8.5 fL (7.4-10.4); Platelet Count 535 K/uL (130-400); RDW Standard Deviation 49.8 fL (36.4-46.3); White Blood Count 9.97 K/uL (4.8-10.8)
[2021-11-27 07:19] LABS: BUN Creatinine Ratio 12.1 (10-20); C Reactive Protein 10.52 mg/dl (0-0.5); Calcium 8.5 mg/dl (8.5-10.1); Creatinine Clr Calc Pharmacy 109.4 ml/min; Est GFR (African American) 118.4 ml/min; Est GFR (Non-African American) 102.2 ml/min; Potassium 3.9 mmol/L (3.5-5.1)
[2021-11-27 07:31] LABS: Anisocytosis Present; Basophils # (auto) 0.07 K/uL (0-0.2); Basophils % (auto) 0.7 %; Immature Granulocytes # (auto) 0.03 K/uL (0.00-0.02); Immature Granulocytes % (auto) 0.3 %; Lymphocytes # (auto) 1.59 K/uL (1.2-3.4); Lymphocytes % (auto) 15.9 %; Monocytes # (auto) 0.92 K/uL (0.11-0.59); Monocytes % (auto) 9.2 %; Neutrophils # (auto) 6.86 K/uL (1.4-6.5); Neutrophils % (auto) 68.9 %; Polychromasia 1+
[2021-11-27] MEDS: INSULIN ASPART PER UNIT SC SCH ×4 (07:54→20:32)
[2021-11-27] MEDS: POTASSIUM CHLORIDE 20 MEQ/15 ML UDC PO SCH (07:56)
[2021-11-27] MEDS: NYSTATIN POWDER 15GM BTL EXT SCH ×3 (07:56→20:33)
[2021-11-27] MEDS: INSULIN GLARGINE SOLOSTAR 100 UNITS/ML 3 ML PEN SC SCH (07:57)
[2021-11-27] MEDS: CALCITRIOL 0.25 MCG CAPSULE PO SCH (07:58)
[2021-11-27] MEDS: HEPARIN SOD 5,000 UNIT/0.5 ML VIAL SQ SCH ×2 (07:58→20:35)
[2021-11-27] MEDS: PANTOprazole 40 MG TAB PO SCH (07:58)
[2021-11-27] MEDS: ADVANCED PROBIOTIC 1250 MG CAPSULE PO SCH (08:00)
[2021-11-27] MEDS: FOLIC ACID 1 MG TAB PO SCH (08:00)
[2021-11-27] MEDS: METOPROLOL TARTRATE 25 MG TAB PO SCH ×2 (08:01→20:35)
[2021-11-27] MEDS: FERROUS SULFATE 325 MG TAB PO SCH ×2 (08:01→20:35)
[2021-11-27] MEDS: PIPERACILLIN/TAZOBACTAM 3.375 GM in DEXTROSE 5% 100 ML IV SCH ×2 (08:02→17:22)
[2021-11-27] MEDS: ASPIRIN 81 MG ECTAB PO SCH (09:54)
[2021-11-27] MEDS: CLOPIDOGREL BISULFATE 75 MG TAB PO SCH (09:54)
[2021-11-27] MEDS: CYANOCOBALAMIN (B-12) 500 MCG TABLET PO SCH (09:54)
[2021-11-27] MEDS: DOCUSATE SODIUM/SENNA 50/8.6MG TAB PO SCH (09:55)
[2021-11-27] MEDS: DAPTOmycin 425 MG in SYRINGE 0 ML IV SCH (13:30)
--- NOTE | 2021-11-27 14:46 | Pharmacy Report ---
Pharmacy Glycemic Short Note 2 - Date of Service November 27, 2021 - Glycemic Short BSG Results (Last 24 hours): 11/26/21 11/26/21 11/26/21 15:43 16:08 16:11 Glucose POC Glucose 62 L* 63 L* 65 L* 11/26/21 11/26/21 11/27/21 16:31 20:40 06:30 Glucose 160 H POC Glucose 80 175 H 11/27/21 11/27/21 07:23 11:27 Glucose POC Glucose 162 H 80 OUTPATIENT ANTIDIABETIC REGIMEN: * Novolog insulin pump: ~53 units/day * Basal: 1.65 units/hr (39.6 units/day) * Correction Factor: 30 mg/dL/unit * Nutritional / Prandial insulin per carb ratio of 1 unit per 6 grams CHO consumed * HbA1c: 8.0% (11/11/21) ASSESSMENT: 11/27: * Patient received total 72 units of insulin yesterday; 38 units basal + 34 units bolus. * BSGs yesterday were [id number] mg/dl. Mr. Chowdhury was hypoglycemic at dinner yesterday. * Novolog CR was tightened today to prevent lunch high but loosened parameters at lunch to prevent dinner low. * Basal dose continued the same 11/26 * Glycemic control acceptable for this patient over last 24 hrs given lability * Fasting BSG 165 this AM w/ 38 units Lantus on board - acceptable for this patient, will continue * Pre-lunch hyperglycemia acceptable with AM Novolog dose, however BSG again fell quickly prior to dinner. Will lessen prandial insulin doses with lunch and dinner to prevent hypoglycemia 11/25 * Pre-dinner hypoglycemia observed yesterday. This may be due to insulin "stacking" as most recent prandial insulin change was to allow for a larger prandial dose w/ breakfast which has helped with pre-lunch highs. Will continue larger prandial doses w/ breakfast however lessen prandial doses with other meals to decrease hypoglycemia risk. * Fasting BSG elevated this AM, however BSG 113-162 overnight which makes me hesitant to adjust basal insulin dose. Current basal dose is nearly equivalent to that provided by insulin pump. 11/24 * BSGs reasonable for this patient over last 24 hrs given his lability * Fasting BSG 112 this AM with 30 units Lantus on board and after receipt of 5 units Novolog correction overnight. Patient is now tolerating a diet, will resume the higher basal insulin dose ordered prior to NPO status yesterday * Given pre-lunch hyperglycemia trend, will increase prandial insulin dose w/ breakfast meal only. 11/23 * NPO for possible amputation today * BSG's were significantly elevated yesterday until HS, where they dropped to 66 mg/dL. Etiology likely overcorrection with Novolog due to a 2nd dose administered at dinner. CHO ratio was loosened at that time. BSG's then climbed overnight and are again elevated this AM * Will reduce Lantus for NPO status today, although not terribly aggressively due to T1DM and AM fasting BSG >180 mg/dL * Will changing Novolog to q4h 2nd NPO and tighten CHO ratio back to yesterday's in anticipation of diet again being ordered post-op PLAN FOR INPATIENT GLYCEMIC CONTROL: * Basal insulin * Lantus 38 units SQ Q AM * Bolus insulin - * NovoLog per scale q4h * Goal Range: Low 120 mg/dL - High 150 mg/dL * Correction Factor: 20 mg/dL/unit with breakfast, 40 mg/dL/unit with lunch and 30 mg/dl/unit with other BSG checks and only correct if BSG > 160 * Nutritional / Prandial insulin per carb ratio of 1 unit per 3 grams CHO consumed w/ breakfast + 1 unit per 10 grams CHO consumed w/ lunch and 1 unit per 5 grams of CHO consumed with other meals
--- NOTE | 2021-11-27 20:17 | Hospitalist Progress Note ---
Date of Service November 27, 2021 Assessment & Plan (1) Diabetic ulcer of left foot: Plan: Presented with L great toe infection/eschar, 3rd toe infection/dry gangrene, 4th toe dry gangrene, heel necrotic tissue, etc. Wound cx with pansensitive Pseudomonas and S. Aureus (MSSA). Remains on zosyn + daptomycin (being used for MSSA, but also with h/o VRE). s/p TMA on 11/23/[address] Soto. Woundvac in place and exchanged 11/26/[address] Soto/wound care team. Woundvac changes planned M/W/F. NWB status to LLE. I discussed the pt's care today with Dr Soto. We reviewed the plan for antibiotics. Dr Soto states that the wound on the L heel is stable and does not examine infected. Of course the toes that were previously gangrenous are now gone. After this discussion we both felt that all antibiotics could be stopped at this time. Thus, d/c both zosyn + dapto. (2) PVD (peripheral vascular disease): Plan: Prior history of B/L iliac artery stents (2014), R common/external iliac (2017), R common femoral endarterectomy (11/2018) with bovine patch. Left femoral to PT composite bypass graft (06/2020). This admission -- S/P L fem-anterior tibial bypass with Dr Eason on 11/19/21. Per Dr Eason he is pleased from a vascular standpoint. Remains on aspirin, plavix; can resume statin since daptomycin is being stopped. (3) Diabetes mellitus type 1: Plan: Uncontrolled and labile. On insulin pump at home - this is on hold. Pharmacy on consult and managing with basal-bolus regimen. (4) CAD (coronary artery disease): Plan: S/P CABG x 1 (2015). Aortic Stenosis S/P porcine AV Continue ASA, metoprolol, and Plavix. Can resume statin. (5) Clostridium difficile colitis: Plan: H/O -- previously on slow long taper of po Vanc last admission. C. diff checked x 2 this admission -- both negative. He is having rectal pain - has prior h/o proctitis. However, no rectal pain today - simply follow for recurrence. Cont probiotics. (6) Hypertension: Plan: Cont metoprolol 12.5 mg BID (7) Dyslipidemia: (8) Hypothyroidism: Plan: Continue Levothyroxine TSH 11/2021 wnl (9) Diabetic nephropathy associated with type 1 diabetes mellitus: Plan: Continue daily iron, calcitriol, and potassium supplement. Ideally should be on low-dose ERIC or ARB. (10) Hyponatremia: Plan: Normal today at 136. (11) Folate deficiency: Plan: history of such 03/2021 - replaced with folate since then. B12 level this admission low-normal -- was given IM supplementation earlier in the visit. Will start on PO supplementation. rechecked folate today - level now normal; can d/c folate supplementation. (12) Below-knee amputation of right lower extremity: Plan: June [address] Soto - [facility] has prosthesis (13) Candidal diaper rash: Plan: nystatin powder TID (14) Rectal pain: Plan: had proctitis in 04/2021 based on imaging c diff x 2 negative this admission if rectal pain persists would need a CT a/p for further info (15) Anemia: Plan: Hb 7.1 today. Most recent transferrin sat 18% folate wnl. b12 low-normal - replacing. recheck cbc in am. if Hb 7 or less - Tx PRBCs Plan: Daughter Loulou ([phone] - number given by patient). Cont PT/OT. Rehab post-d/c?? Admission and Anticipated Discharge Date Admission Date: November 10, 2021 Subjective no events overnight eating well denies persistent/constant rectal pain no change in bowel movements since yesterday stool was heme negative no abdominal pain pain in Left leg is stable no new complaints Review of Systems Review of Systems: gen - no fever cv - no orthopnea pulm - no dyspnea GI - no pain Physical Exam Physical Exam: gen - looks good today, NAD mouth - MMM neck - no JVD heart - RRR, s1 s2, 1-2/6 systolic murmur RUSB lungs - CTA b/l abd - soft NT ND BS+ ext - right BKA with sleeve in place; left foot/ankle wrapped in large dressings; pulses 2+ left foot psych - a/o x 3 Results & Data Results & Data ([facility]) Vital Signs (Past 12 Hours) Vital Signs Temp Pulse Pulse Resp BP Pulse Ox 11/27/21 19:32 37.2 C 73 18 126/53 L 98 11/27/21 15:44 36.9 C 70 18 127/52 L 99 11/27/21 14:20 713 H 11/27/21 11:29 36.6 C 69 22 115/50 L 98 Laboratory Results Laboratory Results - last 24 hr 11/26/21 11/27/21 11/27/21 20:40 05:00 06:30 WBC 9.97 RBC 2.50 L Hgb 7.1 L Hct 22.5 L MCV 90.0 MCH 28.4 MCHC 31.6 L RDW Std Deviation 49.8 H RDW Coeff of Chan 16.0 H Plt Count 535 H MPV 8.5 Immature Gran % (Auto) 0.3 Neut % (Auto) 68.9 Lymph % (Auto) 15.9 [place] % (Auto) 9.2 Eos % (Auto) 5.0 Baso % (Auto) 0.7 Neut # (Auto) 6.86 H Lymph # (Auto) 1.59 [place] # (Auto) 0.92 H Eos # (Auto) 0.50 Baso # (Auto) 0.07 Immature Gran # (Auto) 0.03 H Polychromasia 1+ Anisocytosis Present ESR Sodium Potassium Chloride Carbon Dioxide Anion Gap BUN Creatinine Est Cr Clr Drug Dosing Est GFR ( Amer) Est GFR (Non-Af Amer) BUN/Creatinine Ratio Glucose POC Glucose 175 H Calcium C-Reactive Protein Folate Stool Occult Bld Scrn Negative 11/27/21 11/27/21 11/27/21 06:30 06:30 06:30 WBC RBC Hgb Hct MCV MCH MCHC RDW Std Deviation RDW Coeff of Chan Plt Count MPV Immature Gran % (Auto) Neut % (Auto) Lymph % (Auto) [place] % (Auto) Eos % (Auto) Baso % (Auto) Neut # (Auto) Lymph # (Auto) [place] # (Auto) Eos # (Auto) Baso # (Auto) Immature Gran # (Auto) Polychromasia Anisocytosis ESR 64 H Sodium 136 Potassium 3.9 Chloride 101 Carbon Dioxide 29 Anion Gap 6 BUN 8 Creatinine 0.66 Est Cr Clr Drug Dosing 109.4 Est GFR ( Amer) 118.4 Est GFR (Non-Af Amer) 102.2 BUN/Creatinine Ratio 12.1 Glucose 160 H POC Glucose Calcium 8.5 C-Reactive Protein 10.52 H Folate > 22.30 Stool Occult Bld Scrn 11/27/21 11/27/21 11/27/21 07:23 11:27 16:08 WBC RBC Hgb Hct MCV MCH MCHC RDW Std Deviation RDW Coeff of Chan Plt Count MPV Immature Gran % (Auto) Neut % (Auto) Lymph % (Auto) [place] % (Auto) Eos % (Auto) Baso % (Auto) Neut # (Auto) Lymph # (Auto) [place] # (Auto) Eos # (Auto) Baso # (Auto) Immature Gran # (Auto) Polychromasia Anisocytosis ESR Sodium Potassium Chloride Carbon Dioxide Anion Gap BUN Creatinine Est Cr Clr Drug Dosing Est GFR ( Amer) Est GFR (Non-Af Amer) BUN/Creatinine Ratio Glucose POC Glucose 162 H 80 100 H Calcium C-Reactive Protein Folate Stool Occult Bld Scrn PG Care Time/CCT Total # of Minutes Spent Total Time Spent with Patient: Total time spent is greater than 50% in coordination of care (as documented) at patient's floor/unit and/or counseling patient: Coding Level of Care Code 12963 Subseq Hosp Care Lvl 2 Diagnoses Diabetic ulcer of left foot E11.621; L97.529 PVD (peripheral vascular disease) I73.9 Diabetes mellitus type 1 E10.9 CAD (coronary artery disease) I25.10 Associated angina: without angina Coronary Disease-Associated Artery/Lesion type: [place] artery [place] vs. transplanted heart: [place] heart Clostridium difficile colitis A04.72 Hypertension I10 Hypertension type: unspecified Dyslipidemia E78.5 Hypothyroidism E03.9 Hypothyroidism type: unspecified Diabetic nephropathy associated with type 1 diabetes mellitus E10.21 Hyponatremia E87.1 Folate deficiency E53.8 Below-knee amputation of right lower extremity S88.111A Candidal diaper rash B37.2; L22 Rectal pain K62.89 Anemia D64.9 (1) CAD (coronary artery disease) Associated angina: without angina Coronary Disease-Associated Artery/Lesion type: [place] artery [place] vs. transplanted heart: [place] heart Qualified Code(s): I25.10 - Atherosclerotic heart disease of [place] coronary artery without angina pectoris (2) Hypothyroidism Hypothyroidism type: unspecified Qualified Code(s): E03.9 - Hypothyroidism, unspecified (3) Hypertension Hypertension type: unspecified Qualified Code(s): I10 - Essential (primary) hypertension
[2021-11-28] MEDS: LEVOTHYROXINE SODIUM 175 MCG TABLET PO SCH (06:24)
[2021-11-28 06:52] LABS: Hematocrit (blood only) 24.3 % (42-52); Hemoglobin 7.6 g/dL (14.0-18.0); Mean Corpuscular Hemoglobin 28.7 pg (25-34); Mean Corpuscular Hgb Conc 31.3 g/dL (32-36); Mean Corpuscular Volume 91.7 fL (80-100); Mean Platelet Volume 8.6 fL (7.4-10.4); Platelet Count 594 K/uL (130-400); RDW Coefficient of Variation 16.5 % (11.5-14.5); RDW Standard Deviation 52.3 fL (36.4-46.3); Red Blood Count 2.65 M/uL (4.7-6.1); White Blood Count 8.97 K/uL (4.8-10.8)
[2021-11-28 07:12] LABS: Creatinine Clr Calc Pharmacy 107.8 ml/min; Est GFR (African American) 117.7 ml/min; Est GFR (Non-African American) 101.5 ml/min
[2021-11-28] MEDS: INSULIN ASPART PER UNIT SC SCH ×4 (08:16→21:43)
[2021-11-28] MEDS: INSULIN GLARGINE SOLOSTAR 100 UNITS/ML 3 ML PEN SC SCH (08:17)
[2021-11-28] MEDS: NYSTATIN POWDER 15GM BTL EXT SCH ×3 (08:18→21:23)
[2021-11-28] MEDS: CLOPIDOGREL BISULFATE 75 MG TAB PO SCH (08:18)
[2021-11-28] MEDS: POTASSIUM CHLORIDE 20 MEQ/15 ML UDC PO SCH (08:19)
[2021-11-28] MEDS: CALCITRIOL 0.25 MCG CAPSULE PO SCH (08:19)
[2021-11-28] MEDS: ADVANCED PROBIOTIC 1250 MG CAPSULE PO SCH (08:19)
[2021-11-28] MEDS: METOPROLOL TARTRATE 25 MG TAB PO SCH ×2 (08:19→21:26)
[2021-11-28] MEDS: CYANOCOBALAMIN (B-12) 500 MCG TABLET PO SCH (08:20)
[2021-11-28] MEDS: HEPARIN SOD 5,000 UNIT/0.5 ML VIAL SQ SCH ×2 (08:20→21:27)
[2021-11-28] MEDS: PANTOprazole 40 MG TAB PO SCH (08:20)
[2021-11-28] MEDS: FERROUS SULFATE 325 MG TAB PO SCH ×2 (08:20→21:25)
[2021-11-28] MEDS: DOCUSATE SODIUM/SENNA 50/8.6MG TAB PO SCH (08:21)
[2021-11-28] MEDS: ASPIRIN 81 MG ECTAB PO SCH (08:21)
--- NOTE | 2021-11-28 17:17 | Hospitalist Progress Note ---
Date of Service November 28, 2021 Assessment & Plan (1) Diabetic ulcer of left foot: Plan: POD # 5 s/p TMA left foot by Dr Soto. Presented with L great toe infection/eschar, 3rd toe infection/dry gangrene, 4th toe dry gangrene, heel necrotic tissue, etc. Wound cx with pansensitive Pseudomonas and S. Aureus (MSSA). Rx with zosyn since admission, and some daptomycin use (being used for MSSA, but also with h/o VRE). Zosyn/daptomycin discontinued on 11/[address] Soto. He reported that the L foot heel was clean and without infection. Previous gangrenous toes are now absent s/p amputation. The TMA incision line is clean per Dr Soto as well. Woundvac in place and exchanged 11/26/[address] Soto/wound care team. Woundvac changes planned M/W/F. NWB status to LLE. (2) PVD (peripheral vascular disease): Plan: Prior history of B/L iliac artery stents (2014), R common/external iliac (2017), R common femoral endarterectomy (11/2018) with bovine patch. Left femoral to PT composite bypass graft (06/2020). This admission -- S/P L fem-anterior tibial bypass with Dr Eason on 11/19/21. Per Dr Eason he is pleased with the outcome from a vascular standpoint. Remains on aspirin, plavix, and statin. (3) Diabetes mellitus type 1: Plan: Uncontrolled and labile due to stress of #1 and his surgeries. Recent HbA1c was 8%. On insulin pump at home - this is on hold. Pharmacy on consult and managing with basal-bolus regimen. Appreciate their assistance. (4) CAD (coronary artery disease): Plan: S/P CABG x 1 (2015). Aortic Stenosis S/P porcine AV. Continue ASA, metoprolol, statin, and Plavix. (5) Clostridium difficile colitis: Plan: H/O -- previously on slow long taper of po Vanc last admission. C. diff checked x 2 this admission -- both negative. He had had rectal pain a few days ago - this is now resolved. Watch for recurrence as he had proctitis in the past. Cont probiotics. (6) Hypertension: Plan: Cont metoprolol 12.5 mg BID (7) Dyslipidemia: Plan: statin (8) Hypothyroidism: Plan: Continue Levothyroxine TSH 11/2021 wnl (9) Diabetic nephropathy associated with type 1 diabetes mellitus: Plan: Continue daily iron, calcitriol, and potassium supplement. Ideally should be on low-dose ERIC or ARB but uncertain his BPs could tolerate. (10) Hyponatremia: Plan: resolved BMP am for stability (11) Folate deficiency: Plan: history of such 03/2021 - replaced with folate since then. B12 level this admission low-normal -- was given IM supplementation earlier in the visit. Will start on PO supplementation. rechecked folate this admission &l now normal; d/c folate supplementation. (12) Below-knee amputation of right lower extremity: Plan: June [address] Soto - [facility] has prosthesis (13) Candidal diaper rash: Plan: nystatin powder TID improving per nursing staff (14) Rectal pain: Plan: had proctitis in 04/2021 based on imaging c diff x 2 negative this admission if rectal pain persists would need a CT a/p for further info and if diarrhea worsens - check cdiff (15) Anemia: Plan: Hb 7.6 today. Most recent transferrin sat 18% folate wnl. b12 low-normal - replacing. he did receive some IV venofer earlier in stay. recheck Hemoglobin in am recheck Fe, transferrin sat, etc in am give additional IV venofer if necessary if Hb 7 or less - Tx PRBCs Plan: Daughter Loulou ([phone]) - attempted to call her today, 11/28 - no answer, left voicemail for her. Cont PT/OT. Rehab post-d/c planned ([facility]) d/c tele ok to transfer to med/surg Admission and Anticipated Discharge Date Admission Date: November 10, 2021 Subjective no issues overnight feeling good today left foot pain controlled eating well tele normal no new complaints Review of Systems Review of Systems: gen - no fevers or chills cv - no cp or orthopnea pulm - no cough or dyspnea GI - no abd pain; rectal pain/spasm resolved; occasional loose stool Physical Exam Physical Exam: gen - NAD, looks good mouth - MMM, no thrush neck - no JVD heart - RRR, s1 s2, 1-2/6 systolic murmur RUSB lungs - CTA b/l abd - soft NT ND BS+ ext - right BKA with sleeve in place; left foot/ankle wrapped in large dressings - no bleeding or drainage; pulses 2+ left foot psych - a/o x 3 Results & Data Results & Data ([facility]) Vital Signs (Past 12 Hours) Vital Signs Temp Pulse Pulse Pulse Resp BP Pulse Ox 11/28/21 14:47 37.1 C 74 22 107/50 L 97 11/28/21 14:30 74 11/28/21 11:21 36.6 C 69 18 95/48 L 97 11/28/21 07:20 37.0 C 76 15 131/51 L 94 11/28/21 07:15 66 Laboratory Results Laboratory Results - last 24 hr 11/27/21 11/28/21 11/28/21 20:18 06:10 06:10 WBC 8.97 RBC 2.65 L Hgb 7.6 L Hct 24.3 L MCV 91.7 MCH 28.7 MCHC 31.3 L RDW Std Deviation 52.3 H RDW Coeff of Chan 16.5 H Plt Count 594 H MPV 8.6 Creatinine 0.67 Est Cr Clr Drug Dosing 107.8 Est GFR ( Amer) 117.7 Est GFR (Non-Af Amer) 101.5 POC Glucose 96 11/28/21 11/28/21 11/28/21 07:24 11:25 15:14 WBC RBC Hgb Hct MCV MCH MCHC RDW Std Deviation RDW Coeff of Chan Plt Count MPV Creatinine Est Cr Clr Drug Dosing Est GFR ( Amer) Est GFR (Non-Af Amer) POC Glucose 258 H 141 H 62 L* 11/28/21 11/28/21 15:44 16:25 WBC RBC Hgb Hct MCV MCH MCHC RDW Std Deviation RDW Coeff of Chan Plt Count MPV Creatinine Est Cr Clr Drug Dosing Est GFR ( Amer) Est GFR (Non-Af Amer) POC Glucose 72 103 H PG Care Time/CCT Total # of Minutes Spent Total Time Spent with Patient: Total time spent is greater than 50% in coordination of care (as documented) at patient's floor/unit and/or counseling patient: Coding Level of Care Code 42586 Subseq Hosp Care Lvl 3 Diagnoses Diabetic ulcer of left foot E11.621; L97.529 PVD (peripheral vascular disease) I73.9 Diabetes mellitus type 1 E10.9 CAD (coronary artery disease) I25.10 Coronary Disease-Associated Artery/Lesion type: [place] artery [place] vs. transplanted heart: [place] heart Associated angina: without angina Clostridium difficile colitis A04.72 Hypertension I10 Hypertension type: unspecified Dyslipidemia E78.5 Hypothyroidism E03.9 Hypothyroidism type: unspecified Diabetic nephropathy associated with type 1 diabetes mellitus E10.21 Hyponatremia E87.1 Folate deficiency E53.8 Below-knee amputation of right lower extremity S88.111A Candidal diaper rash B37.2; L22 Rectal pain K62.89 Anemia D64.9 (1) CAD (coronary artery disease) Coronary Disease-Associated Artery/Lesion type: [place] artery [place] vs. transplanted heart: [place] heart Associated angina: without angina Qualified Code(s): I25.10 - Atherosclerotic heart disease of [place] coronary artery without angina pectoris (2) Hypertension Hypertension type: unspecified Qualified Code(s): I10 - Essential (primary) hypertension (3) Hypothyroidism Hypothyroidism type: unspecified Qualified Code(s): E03.9 - Hypothyroidism, unspecified
[2021-11-28] MEDS: ATORVASTATIN 40 MG TAB PO SCH (21:56)
[2021-11-29] MEDS ORDERED: INSULIN ASPART PER UNIT SC SCH (02:00)
[2021-11-29] MEDS: LEVOTHYROXINE SODIUM 175 MCG TABLET PO SCH (06:28)
[2021-11-29 07:36] LABS: BUN Creatinine Ratio 23.7 (10-20); Calcium 8.5 mg/dl (8.5-10.1); Creatinine Clr Calc Pharmacy 122.4 ml/min; Potassium 4.1 mmol/L (3.5-5.1)
[2021-11-29] MEDS: ADVANCED PROBIOTIC 1250 MG CAPSULE PO SCH (08:43)
[2021-11-29] MEDS: FERROUS SULFATE 325 MG TAB PO SCH ×2 (08:43→20:22)
[2021-11-29] MEDS: HEPARIN SOD 5,000 UNIT/0.5 ML VIAL SQ SCH ×2 (08:43→20:21)
[2021-11-29] MEDS: CYANOCOBALAMIN (B-12) 500 MCG TABLET PO SCH (08:44)
[2021-11-29] MEDS: CALCITRIOL 0.25 MCG CAPSULE PO SCH (08:44)
[2021-11-29] MEDS: ASPIRIN 81 MG ECTAB PO SCH (08:44)
[2021-11-29] MEDS: METOPROLOL TARTRATE 25 MG TAB PO SCH ×2 (08:44→20:21)
[2021-11-29] MEDS: PANTOprazole 40 MG TAB PO SCH (08:44)
[2021-11-29] MEDS: POTASSIUM CHLORIDE 20 MEQ/15 ML UDC PO SCH (08:45)
[2021-11-29] MEDS: INSULIN GLARGINE SOLOSTAR 100 UNITS/ML 3 ML PEN SC SCH (08:46)
[2021-11-29] MEDS: NYSTATIN POWDER 15GM BTL EXT SCH ×3 (08:46→20:22)
[2021-11-29] MEDS: INSULIN ASPART PER UNIT SC SCH ×4 (09:02→21:14)
[2021-11-29] MEDS: CLOPIDOGREL BISULFATE 75 MG TAB PO SCH (09:30)
--- NOTE | 2021-11-29 14:42 | Hospitalist Progress Note ---
Date of Service November 29, 2021 Assessment & Plan (1) Diabetic ulcer of left foot: Plan: POD # 6 s/p TMA left foot by Dr Soto. Presented with L great toe infection/eschar, 3rd toe infection/dry gangrene, 4th toe dry gangrene, heel necrotic tissue, etc. Wound cx with pansensitive Pseudomonas and S. Aureus (MSSA). Rx with zosyn since admission, and some daptomycin use (being used for MSSA, but also with h/o VRE). Zosyn/daptomycin discontinued on 11/[address] Soto. He reported that the L foot heel was clean and without infection. Previous gangrenous toes are now absent s/p amputation. The TMA incision line is clean per Dr Soto as well. Woundvac in place and exchanged 11/26/[address] Soto/wound care team. Woundvac changes planned M/W/F. NWB status to LLE. (2) PVD (peripheral vascular disease): Plan: Prior history of B/L iliac artery stents (2014), R common/external iliac (2017), R common femoral endarterectomy (11/2018) with bovine patch. Left femoral to PT composite bypass graft (06/2020). This admission -- S/P L fem-anterior tibial bypass with Dr Eason on 11/19/21. Per Dr Eason he is pleased with the outcome from a vascular standpoint. Remains on aspirin, plavix, and statin. (3) Diabetes mellitus type 1: Plan: Uncontrolled and labile due to stress of #1 and his surgeries. Recent HbA1c was 8%. On insulin pump at home - this is on hold. Pharmacy on consult and managing with basal-bolus regimen. Appreciate their assistance. (4) CAD (coronary artery disease): Plan: S/P CABG x 1 (2015). Aortic Stenosis S/P porcine AV. Continue ASA, metoprolol, statin, and Plavix. (5) Clostridium difficile colitis: Plan: H/O -- previously on slow long taper of po Vanc last admission. C. diff checked x 2 this admission -- both negative. He had had rectal pain a few days ago - this is now resolved. Watch for recurrence as he had proctitis in the past. Cont probiotics. (6) Hypertension: Plan: Cont metoprolol 12.5 mg BID (7) Dyslipidemia: Plan: statin therapy (8) Hypothyroidism: Plan: Continue Levothyroxine TSH 11/2021 wnl (9) Diabetic nephropathy associated with type 1 diabetes mellitus: Plan: Continue daily iron, calcitriol, and potassium supplement. Ideally should be on low-dose ERIC or ARB but uncertain his BPs could tolerate. (10) Hyponatremia: Plan: resolved (11) Folate deficiency: Plan: history of such 03/2021 - replaced with folate since then. B12 level this admission low-normal -- was given IM supplementation earlier in the visit. Treated with folate supplementation. (12) Below-knee amputation of right lower extremity: Plan: June [address] Soto - [facility] has prosthesis (13) Candidal diaper rash: Plan: nystatin powder TID improving per nursing staff (14) Rectal pain: Plan: had proctitis in 04/2021 based on imaging c diff x 2 negative this admission. Resolved (15) Anemia: Plan: Chronic. He did receive some IV venofer earlier in stay. If Hb 7 or less - Tx PRBCs Plan: Disposition: Eventual discharge to SNF facility. Cont PT/OT. Admission and Anticipated Discharge Date Admission Date: November 10, 2021 Subjective Alert and oriented. No acute problems. Awaiting SNF placement Review of Systems Review of Systems: Constitutional-no fever or chills ENT-no blurred vision, no double vision, no epistaxis, no sore throat Respiratory-no cough, no wheezing, no shortness of breath Cardiac-no palpitations, no chest pain, no syncope GI-no nausea, vomiting, diarrhea, melena, hematochezia -no urinary retention, no urinary incontinence, no dysuria, no hematuria Musculoskeletal-no joint pain, no muscle tenderness Skin-no bruising, no rashes, no pruritus Neuro-no isolated weakness, no paresthesia, no weakness Psych-no depression, no anxiety Physical Exam Physical Exam: General-alert and oriented x3, no fevers, no chills HEENT-head atraumatic and normocephalic, TMs intact bilaterally, pupils equal and reactive to light, extraocular muscles intact Neck-no lymphadenopathy or thyromegaly, trachea midline Chest-clear to auscultation percussion. No rales wheezing or rhonchi Cardiac-regular rate and rhythm, normal S1 and S2, no murmurs Abdomen-normal bowel sounds, nontender, no hepatosplenomegaly Extremities-no cyanosis, clubbing, or edema. Left foot TMA site heavily bandaged Neuro-cranial nerves II through XII intact, motor and sensory function within normal limits, strength symmetrical , no focal deficits Psych-normal affect, normal mood Results & Data Results & Data ([facility]) Vital Signs (Past 12 Hours) Vital Signs Temp Pulse Resp BP Pulse Ox 11/29/21 07:45 36.9 C 72 16 130/74 99 Laboratory Results 11/29/21 06:56 11/29/21 06:56 PG Care Time/CCT Total # of Minutes Spent Total Time Spent with Patient: Total time spent is greater than 50% in coordination of care (as documented) at patient's floor/unit and/or counseling patient: Coding Level of Care Code 05720 Subseq Hosp Care Lvl 3 Diagnoses Diabetic ulcer of left foot E11.621; L97.529 PVD (peripheral vascular disease) I73.9 Diabetes mellitus type 1 E10.9 CAD (coronary artery disease) I25.10 Coronary Disease-Associated Artery/Lesion type: [place] artery [place] vs. transplanted heart: [place] heart Associated angina: without angina Clostridium difficile colitis A04.72 Hypertension I10 Hypertension type: unspecified Dyslipidemia E78.5 Hypothyroidism E03.9 Hypothyroidism type: unspecified Diabetic nephropathy associated with type 1 diabetes mellitus E10.21 Hyponatremia E87.1 Folate deficiency E53.8 Below-knee amputation of right lower extremity S88.111A Candidal diaper rash B37.2; L22 Rectal pain K62.89 Anemia D64.9 (1) CAD (coronary artery disease) Coronary Disease-Associated Artery/Lesion type: [place] artery [place] vs. transplanted heart: [place] heart Associated angina: without angina Qualified Code(s): I25.10 - Atherosclerotic heart disease of [place] coronary artery without angina pectoris (2) Hypertension Hypertension type: unspecified Qualified Code(s): I10 - Essential (primary) hypertension (3) Hypothyroidism Hypothyroidism type: unspecified Qualified Code(s): E03.9 - Hypothyroidism, unspecified
[2021-11-29] MEDS: ATORVASTATIN 40 MG TAB PO SCH (21:09)
[2021-11-30] MEDS: LEVOTHYROXINE SODIUM 175 MCG TABLET PO SCH (05:48)
[2021-11-30] MEDS: ASPIRIN 81 MG ECTAB PO SCH (08:17)
[2021-11-30] MEDS: METOPROLOL TARTRATE 25 MG TAB PO SCH ×2 (08:17→21:31)
[2021-11-30] MEDS: POTASSIUM CHLORIDE 20 MEQ/15 ML UDC PO SCH (08:17)
[2021-11-30] MEDS: CYANOCOBALAMIN (B-12) 500 MCG TABLET PO SCH (08:18)
[2021-11-30] MEDS: CALCITRIOL 0.25 MCG CAPSULE PO SCH (08:18)
[2021-11-30] MEDS: ADVANCED PROBIOTIC 1250 MG CAPSULE PO SCH (08:18)
[2021-11-30] MEDS: HEPARIN SOD 5,000 UNIT/0.5 ML VIAL SQ SCH ×2 (08:18→21:31)
[2021-11-30] MEDS: PANTOprazole 40 MG TAB PO SCH (08:18)
[2021-11-30] MEDS: FERROUS SULFATE 325 MG TAB PO SCH ×2 (08:18→21:31)
[2021-11-30] MEDS: NYSTATIN POWDER 15GM BTL EXT SCH ×3 (08:19→21:32)
[2021-11-30] MEDS: INSULIN GLARGINE SOLOSTAR 100 UNITS/ML 3 ML PEN SC SCH (09:02)
[2021-11-30] MEDS: INSULIN ASPART PER UNIT SC SCH ×4 (09:03→21:39)
[2021-11-30] MEDS: CLOPIDOGREL BISULFATE 75 MG TAB PO SCH (09:44)
--- NOTE | 2021-11-30 12:28 | Hospitalist Progress Note ---
Date of Service November 30, 2021 Assessment & Plan (1) Diabetic ulcer of left foot: Plan: POD #7 s/p TMA left foot by Dr Soto. Presented with L great toe infection/eschar, 3rd toe infection/dry gangrene, 4th toe dry gangrene, heel necrotic tissue, etc. Wound cx with pansensitive Pseudomonas and S. Aureus (MSSA). Rx with zosyn since admission, and some daptomycin use (being used for MSSA, but also with h/o VRE). Zosyn/daptomycin discontinued on 11/[address] Soto. He reported that the L foot heel was clean and without infection. Previous gangrenous toes are now absent s/p amputation. The TMA incision line is clean per Dr Soto as well. Woundvac in place and exchanged 11/26/[address] Soto/wound care team. Woundvac changes planned M/W/F. NWB status to LLE. (2) PVD (peripheral vascular disease): Plan: Prior history of B/L iliac artery stents (2014), R common/external iliac (2017), R common femoral endarterectomy (11/2018) with bovine patch. Left femoral to PT composite bypass graft (06/2020). Right BKA procedure June 2021 This admission -- S/P L fem-anterior tibial bypass with Dr Eason on 11/19/21. Per Dr Eason he is pleased with the outcome from a vascular standpoint. Remains on aspirin, plavix, and statin. (3) Diabetes mellitus type 1: Plan: Uncontrolled and labile due to stress of #1 and his surgeries. Recent HbA1c was 8%. On insulin pump at home - this is on hold. Pharmacy on consult and managing with basal-bolus regimen. Appreciate their assistance. (4) CAD (coronary artery disease): Plan: S/P CABG x 1 (2015). Aortic Stenosis S/P porcine AV. Continue ASA, metoprolol, statin, and Plavix. (5) Clostridium difficile colitis: Plan: H/O -- previously on slow long taper of po Vanc last admission. C. diff checked x 2 this admission -- both negative. He had had rectal pain a few days ago - this is now resolved. Watch for recurrence as he had proctitis in the past. Cont probiotics. (6) Hypertension: Plan: Cont metoprolol 12.5 mg BID (7) Dyslipidemia: Plan: statin therapy (8) Hypothyroidism: Plan: Continue Levothyroxine TSH 11/2021 wnl (9) Diabetic nephropathy associated with type 1 diabetes mellitus: Plan: Continue daily iron, calcitriol, and potassium supplement. Low BP will not tolerate ERIC or ARB (10) Hyponatremia: Plan: resolved (11) Folate deficiency: Plan: history dating back to 03/2021 - replaced with folate since then. B12 level this admission low-normal -- was given IM supplementation earlier in the visit. Treated with folate supplementation. (12) Below-knee amputation of right lower extremity: Plan: June [address] Soto - [facility] Has prosthesis (13) Candidal diaper rash: Plan: Treated with nystatin powder TID . Resolved (14) Rectal pain: Plan: had proctitis in 04/2021 based on imaging c diff x 2 negative this admission. Resolved (15) Anemia: Plan: Chronic. He did receive some IV venofer earlier in stay. If Hb 7 or less - Tx PRBCs Plan: Disposition: Eventual discharge to SNF facility. Cont PT/OT. Admission and Anticipated Discharge Date Admission Date: November 10, 2021 Subjective Alert and oriented. No complaints. Awaiting final arrangements for discharge to SNF facility Review of Systems Review of Systems: Constitutional-no fever or chills ENT-no blurred vision, no double vision, no epistaxis, no sore throat Respiratory-no cough, no wheezing, no shortness of breath Cardiac-no palpitations, no chest pain, no syncope GI-no nausea, vomiting, diarrhea, melena, hematochezia -no urinary retention, no urinary incontinence, no dysuria, no hematuria Musculoskeletal-no joint pain, no muscle tenderness Skin-no bruising, no rashes, no pruritus Neuro-no isolated weakness, no paresthesia, no weakness Psych-no depression, no anxiety Physical Exam Physical Exam: General-alert and oriented x3, no fevers, no chills HEENT-head atraumatic and normocephalic, TMs intact bilaterally, pupils equal and reactive to light, extraocular muscles intact Neck-no lymphadenopathy or thyromegaly, trachea midline Chest-clear to auscultation percussion. No rales wheezing or rhonchi Cardiac-regular rate and rhythm, normal S1 and S2, no murmurs Abdomen-normal bowel sounds, nontender, no hepatosplenomegaly Extremities- Right BKA status. Left foot heavily bandaged after left transmetatarsal amputation Neuro-cranial nerves II through XII intact, motor and sensory function within normal limits, strength symmetrical , no focal deficits Psych-normal affect, normal mood Results & Data Results & Data ([facility]) Vital Signs (Past 12 Hours) Vital Signs Temp Pulse Resp BP Pulse Ox 11/30/21 07:33 36.8 C 72 16 131/75 97 Laboratory Results 11/29/21 06:56 11/29/21 06:56 PG Care Time/CCT Total # of Minutes Spent Total Time Spent with Patient: Total time spent is greater than 50% in coordination of care (as documented) at patient's floor/unit and/or counseling patient: Coding Level of Care Code 97608 Subseq Hosp Care Lvl 3 Diagnoses Diabetic ulcer of left foot E11.621; L97.529 PVD (peripheral vascular disease) I73.9 Diabetes mellitus type 1 E10.9 CAD (coronary artery disease) I25.10 Coronary Disease-Associated Artery/Lesion type: [place] artery [place] vs. transplanted heart: [place] heart Associated angina: without angina Clostridium difficile colitis A04.72 Hypertension I10 Hypertension type: unspecified Dyslipidemia E78.5 Hypothyroidism E03.9 Hypothyroidism type: unspecified Diabetic nephropathy associated with type 1 diabetes mellitus E10.21 Hyponatremia E87.1 Folate deficiency E53.8 Below-knee amputation of right lower extremity S88.111A Candidal diaper rash B37.2; L22 Rectal pain K62.89 Anemia D64.9 (1) CAD (coronary artery disease) Coronary Disease-Associated Artery/Lesion type: [place] artery [place] vs. transplanted heart: [place] heart Associated angina: without angina Qualified Code(s): I25.10 - Atherosclerotic heart disease of [place] coronary artery without angina pectoris (2) Hypertension Hypertension type: unspecified Qualified Code(s): I10 - Essential (primary) hypertension (3) Hypothyroidism Hypothyroidism type: unspecified Qualified Code(s): E03.9 - Hypothyroidism, unspecified
--- NOTE | 2021-11-30 12:33 | Discharge Summary ---
Date of Service November 30, 2021 Admission HPI Per Admitting Provider 66 y/o M w PMH of poorly controlled DM1 with diabetic foot ulcers, PAD, CAD s/p CABG X1 in 2016 CKD stage III, hypertension, aortic stenosis s/p porcine valve replacement in 2016, osteoporosis, and hypothyroidism who presents to the ED directly from the wound care clinic due to several necrotic, ulcerative wounds to his left foot. Patient has been following with Dr. Soto post right BKA in June 2021 and most recently developed a gangrenous area to the medial aspect of the left great toe.Patient was last seen by orthopedics on 11/03/2021 where referral was placed to the wound clinic for the toe. Since that last orthopedic visit he has developed "black areas" to the 3rd toe, plantar surface of the foot and heel. Erythema has developed to the dorsal surface of the left foot over the last 2 weeks with increasing pain to the left heel noted this week. Patient is currently not on antibiotics or been applying a dressing to the wounds. Patient is also followed by vascular surgery, he had undergone a prior left femoral distal bypass [address] Eason as well as a failed right femoropopliteal bypass in 2020. Besides the development of several wounds, patient has otherwise felt well, he denies fever/chills, chest pain, palpitations, SOB, nausea, vomiting, abdominal pain, weakness. He denies any recent injury to his foot, denies pallor, decreased temperature, or significant pain at left foot or ankle. In ED, pt was initially normotensive with BP 140/83, however he apparently became borderline hypotensive with lowest BP 96/53. He received a 1L NS bolus and maintenance fluids, SBP now in 150s. VS otherwise within normal limits and stable, pt is afebrile. CBC with WBC 18.36, Hgb 12.6 appears to be at baseline. ESR 71, CRP 7.92, PCT 0.08, lactate 1.0. CMP with Na+ 132, Cl 97, glucose 349, Tbili 1.3, alk phos 131 which is chronically elevated. Left foot XR significant for soft tissue swelling w/o acute bony abnormalities ID'd, osteopenia with post-op and advanced degenerative changes. Wound culture obtained, pending. In addition to IVF, pt received 10 units insulin, was started on Daptomycin and Zosyn based on growth from previous cultures. Hospitalist service was consulted for evaluation and admission. Principal Diagnosis Diabetic left forefoot ulceration with underlying osteomyelitis, status post left transmetatarsal amputation Discharge Exam General-alert and oriented x3, no fevers, no chills HEENT-head atraumatic and normocephalic, TMs intact bilaterally, pupils equal and reactive to light, extraocular muscles intact Neck-no lymphadenopathy or thyromegaly, trachea midline Chest-clear to auscultation percussion. No rales wheezing or rhonchi Cardiac-regular rate and rhythm, normal S1 and S2, no murmurs Abdomen-normal bowel sounds, nontender, no hepatosplenomegaly Extremities-left foot heavily bandaged after left transmetatarsal amputation. Right BKA status Neuro-cranial nerves II through XII intact, motor and sensory function within normal limits, strength symmetrical , no focal deficits Psych-normal affect, normal mood Discharge Data Allergies Allergy/AdvReac Type Severity Reaction Status Date / Time No Known Allergies Allergy Unknown Verified 11/23/21 12:17 Consultations 11/10/21 17:25 ED Decision to Admit Stat 11/10/21 19:28 Consult Orthopedic Surgery Stat 11/10/21 21:12 Consult Vascular Surgery Routine Procedures Performed Operation Date: 11/15/21 11:25 Actual Procedures p Left Lower Extremity Angiogram, ultrasound localization of right femoral artery, mechanical closure of right femoral artery moderate sedation 1050- 1143(Right) - Floyd Eason MD Operation Date: 11/19/21 09:05 Actual Procedures p Left Femoral to Anterior Tibial Bypass with Cadaver Vein and Embolization of side branch of the bypass(Left) - Floyd Eason MD Operation Date: 11/23/21 12:45 Actual Procedures p Left Transmetatarsal Amputation(Left) - Xander Soto MD s Left Heel Debridement with Wound Vac Application(Left) - Xander Soto MD Ordered Studies 11/10/21 19:09 US arterial duplex LE LT Urgent 11/15/21 07:13 EV angio LE LT Routine US EV guide vascular access Routine 11/15/21 12:02 US venous mapping LE LT Routine 11/19/21 07:09 EV angio LE LT Routine 11/23/21 12:45 FL foot LT 2V Routine Hospital Course (1) Diabetic ulcer of left foot: POD #7 s/p TMA left foot by Dr Soto. Presented with L great toe infection/eschar, 3rd toe infection/dry gangrene, 4th toe dry gangrene, heel necrotic tissue, etc. Wound cx with pansensitive Pseudomonas and S. Aureus (MSSA). Rx with zosyn since admission, and some daptomycin use (being used for MSSA, but also with h/o VRE). Zosyn/daptomycin discontinued on 11/[address] Soto. He reported that the L foot heel was clean and without infection. Previous gangrenous toes are now absent s/p amputation. The TMA incision line is clean per Dr Soto as well. Woundvac in place and exchanged 11/26/[address] Soto/wound care team. Woundvac changes planned M/W/F. NWB status to LLE. (2) PVD (peripheral vascular disease): Prior history of B/L iliac artery stents (2014), R common/external iliac (2017), R common femoral endarterectomy (11/2018) with bovine patch. Left femoral to PT composite bypass graft (06/2020). Right BKA procedure June 2021 This admission -- S/P L fem-anterior tibial bypass with Dr Eason on 11/19/21. Per Dr Eason he is pleased with the outcome from a vascular standpoint. Remains on aspirin, plavix, and statin. (3) Diabetes mellitus type 1: Uncontrolled and labile due to stress of #1 and his surgeries. Recent HbA1c was 8%. On insulin pump at home - this is on hold. Pharmacy on consult and managing with basal-bolus regimen. Appreciate their assistance. (4) CAD (coronary artery disease): S/P CABG x 1 (2015). Aortic Stenosis S/P porcine AV. Continue ASA, metoprolol, statin, and Plavix. (5) Clostridium difficile colitis: H/O -- previously on slow long taper of po Vanc last admission. C. diff checked x 2 this admission -- both negative. He had had rectal pain a few days ago - this is now resolved. Watch for recurrence as he had proctitis in the past. Cont probiotics. (6) Hypertension: Cont metoprolol 12.5 mg BID (7) Dyslipidemia: statin therapy (8) Hypothyroidism: Continue Levothyroxine TSH 11/2021 wnl (9) Diabetic nephropathy associated with type 1 diabetes mellitus: Continue daily iron, calcitriol, and potassium supplement. Low BP will not tolerate ERIC or ARB (10) Hyponatremia: resolved (11) Folate deficiency: history dating back to 03/2021 - replaced with folate since then. B12 level this admission low-normal -- was given IM supplementation earlier in the visit. Treated with folate supplementation. (12) Below-knee amputation of right lower extremity: June [address] Soto - [facility] Has prosthesis (13) Candidal diaper rash: Treated with nystatin powder TID . Resolved (14) Rectal pain: had proctitis in 04/2021 based on imaging c diff x 2 negative this admission. Resolved (15) Anemia: Chronic. He did receive some IV venofer earlier in stay. If Hb 7 or less - Tx PRBCs Disposition: Eventual discharge to SNF facility. Cont PT/OT. Total Time Total Time Spent Total Time Spent (In Minutes): 35 minutes Discharge Plan Discharge Items Reason For Visit: INFECTED WOUND Discharge Diagnosis: Left forefoot ulceration with osteomyelitis, peripheral vascular insufficiency Activity: Per Instructions section Non-emergency contact: Primary Care Provider Call non-emergency contact if: you have any medication questions Follow-up/Referrals: Ivelisse Oconnell MD [Primary Care Provider] - Diet: Carb Count or DM1 and Heart Healthy Addtl Attending Provider Instructions: Wound VAC to the left foot will be changed every Monday. Follow-up with Dr. Tomas Mathews, orthopedics, in 2 weeks Pending Studies at Discharge: No Stand-Alone Forms: My [facility] Skilled Items Patient informed of condition?: Yes DNR: No Discharge Level of Care: Skilled Communicable Disease: No Discharge Prognosis: Stable Lines: None Urinary Catheter: No Medications and DC Order Prescriptions: New polyethylene glycol 3350 [Miralax] 17 gram Powder In Packet 17 g PO DAILY PRN (Reason: constipation) Qty: 10 RF: 0 cyanocobalamin (vitamin B-12) 500 mcg Tablet 1,000 mcg PO QAM Qty: 10 RF: 0 Lantus Solostar U-100 Insulin 100 unit/mL (3 mL) Insulin Pen 38 unit SC DAILY Qty: 10 RF: 0 Continued clopidogrel [Plavix] 75 mg tablet 75 mg PO QAM Qty: 30 RF: 5 metoprolol tartrate 25 mg tablet 12.5 mg PO BID Qty: 90 RF: 3 calcitriol [Rocaltrol] 0.25 mcg capsule 0.25 mcg PO QAM Qty: 30 RF: 5 pantoprazole [Protonix] 40 mg tablet,delayed release (DR/EC) 40 mg PO QAM Qty: 30 RF: 5 ferrous sulfate 325 mg (65 mg iron) tablet,delayed release (DR/EC) 325 mg PO BID Qty: 60 RF: 5 folic acid 1 mg tablet 1 mg PO QAM Qty: 30 RF: 5 (DME) Bed Side Commode Misc See Rx Instructions .Route Qty: 1 RF: 0 (DME) Commode rails round See Rx Instructions .Route .MEDSUPPLY Qty: 1 RF: 0 potassium chloride 20 mEq tablet extended release 20 meq PO BID Qty: 60 RF: 5 insulin aspart U-100 [Novolog U-100 Insulin aspart] 100 unit/mL solution 75 unit SQ CONT 90 Days Qty: 70 RF: 3 atorvastatin [Lipitor] 80 mg tablet 80 mg PO HS Qty: 90 RF: 3 Adult 50 Plus Probiotic 4 billion cell capsule 4,000 mmu cells PO DAILY RF: 0 levothyroxine [Synthroid] 175 mcg tablet 175 mcg PO QAM RF: 0 insulin aspart U-100 [Novolog Flexpen U-100 Insulin] 100 unit/mL (3 mL) Insulin Pen See Rx Instructions .ROUTE .COMPLEX Qty: 3 RF: 0 aspirin [Aspirin Low Dose] 81 mg tablet,delayed release (DR/EC) 81 mg PO QAM RF: 0 Admission Data Admit Date/Time: 11/10/21 17:51 Attending Provider: Alexis Luis Admit Provider: Isaac Carrillo Primary Care Provider: Ivelisse Oconnell Other Providers: Harley Sharp ; [facility] ; [facility] ; Isaac Carrillo ; Xander Soto ; Floyd Eason Coding Level of Care Code D/C DAY MANAGEMENT >30 MINS Diagnoses Diabetic ulcer of left foot E11.621; L97.529 PVD (peripheral vascular disease) I73.9 Diabetes mellitus type 1 E10.9 CAD (coronary artery disease) I25.10 Coronary Disease-Associated Artery/Lesion type: [place] artery [place] vs. transplanted heart: [place] heart Associated angina: without angina Clostridium difficile colitis A04.72 Hypertension I10 Hypertension type: unspecified Dyslipidemia E78.5 Hypothyroidism E03.9 Hypothyroidism type: unspecified Diabetic nephropathy associated with type 1 diabetes mellitus E10.21 Hyponatremia E87.1 Folate deficiency E53.8 Below-knee amputation of right lower extremity S88.111A Candidal diaper rash B37.2; L22 Rectal pain K62.89 Anemia D64.9
[2021-11-30] MEDS: CARBOHYDRATES FOR HYPOGLYCEMIA PO PRN ×2 (16:04→16:25)
[2021-11-30] MEDS: ATORVASTATIN 40 MG TAB PO SCH (22:25)
[2021-12-01] MEDS: LEVOTHYROXINE SODIUM 175 MCG TABLET PO SCH (05:27)
[2021-12-01 06:29] LABS: Basophils # (auto) 0.05 K/uL (0-0.2); Basophils % (auto) 0.5 %; Eosinophils # (auto) 0.46 K/uL (0-0.5); Hematocrit (blood only) 27.3 % (42-52); Hemoglobin 8.4 g/dL (14.0-18.0); Immature Granulocytes # (auto) 0.07 K/uL (0.00-0.02); Immature Granulocytes % (auto) 0.8 %; Lymphocytes # (auto) 1.97 K/uL (1.2-3.4); Lymphocytes % (auto) 21.5 %; Mean Corpuscular Hemoglobin 28.8 pg (25-34); Mean Corpuscular Hgb Conc 30.8 g/dL (32-36); Mean Corpuscular Volume 93.5 fL (80-100); Mean Platelet Volume 8.6 fL (7.4-10.4); Monocytes # (auto) 0.57 K/uL (0.11-0.59); Monocytes % (auto) 6.2 %; Neutrophils # (auto) 6.03 K/uL (1.4-6.5); Platelet Count 527 K/uL (130-400); RDW Coefficient of Variation 16.9 % (11.5-14.5); RDW Standard Deviation 55.4 fL (36.4-46.3); Red Blood Count 2.92 M/uL (4.7-6.1); White Blood Count 9.15 K/uL (4.8-10.8)
[2021-12-01 06:47] LABS: Calcium 8.7 mg/dl (8.5-10.1); Creatinine Clr Calc Pharmacy 120.3 ml/min; Est GFR (African American) 123.2 ml/min; Est GFR (Non-African American) 106.3 ml/min; Potassium 4.4 mmol/L (3.5-5.1)
[2021-12-01] MEDS: FERROUS SULFATE 325 MG TAB PO SCH ×2 (08:53→21:48)
[2021-12-01] MEDS: ADVANCED PROBIOTIC 1250 MG CAPSULE PO SCH (08:53)
[2021-12-01] MEDS: CYANOCOBALAMIN (B-12) 500 MCG TABLET PO SCH (08:53)
[2021-12-01] MEDS: ASPIRIN 81 MG ECTAB PO SCH (08:53)
[2021-12-01] MEDS: METOPROLOL TARTRATE 25 MG TAB PO SCH ×2 (08:54→21:47)
[2021-12-01] MEDS: HEPARIN SOD 5,000 UNIT/0.5 ML VIAL SQ SCH ×2 (08:54→22:04)
[2021-12-01] MEDS: PANTOprazole 40 MG TAB PO SCH (08:54)
[2021-12-01] MEDS: POTASSIUM CHLORIDE 20 MEQ/15 ML UDC PO SCH (08:54)
[2021-12-01] MEDS: CALCITRIOL 0.25 MCG CAPSULE PO SCH (08:54)
[2021-12-01] MEDS: NYSTATIN POWDER 15GM BTL EXT SCH ×3 (08:55→21:46)
[2021-12-01] MEDS: INSULIN GLARGINE SOLOSTAR 100 UNITS/ML 3 ML PEN SC SCH (09:01)
[2021-12-01] MEDS: INSULIN ASPART PER UNIT SC SCH ×4 (09:02→21:55)
--- NOTE | 2021-12-01 10:55 | Progress Notes ---
DATE OF SERVICE: 12/01/2021. No problems are reported. Doing well otherwise. Afebrile, vital signs stable. White count 9, hemog lobin 8, hematocrit 27, platelets 527. PRP noted. Dressing removed. The transmetatarsal amputation incision is healing well. There were two spots of just some quarter sized bloody drainage. There i s one spot centrally, which has not quite completely scabbed over, but otherwise there is no signific ant fluctuance, erythema, drainage or necrosis. The lateral leg wound is healing well with some granulation and remains about 2 x 4 cm. The medial h eel wound is closing up readily and granulating well. The 2 posterior and posterolateral wound show some evidence of granulation tissue more evident posterior than lateral. There is some granulation p resent. The skin is in good condition. With his permission, I went ahead and debrided some of the dryer fat areas which were darker, but not in both wounds. Less than 2 cm total excisional debridement done sharply with scissors and pick ups. We applied a dry dressing along with a splint. The wound care team will be along to redress the woun ds, apply the VAC and reapply the splint. The patient is doing well. He does not require any further antibiotics at this time. Any further an tibiotics at this time from my perspective. We will continue to offload his foot using the special s plint. He will continue the wound VAC and we will continue to monitor the health of his wounds. [facility] nursing placement is pending. Job ID: [id number]
[2021-12-01] MEDS: CLOPIDOGREL BISULFATE 75 MG TAB PO SCH (11:08)
--- NOTE | 2021-12-01 13:54 | Pharmacy Report ---
Pharmacy Glycemic Short Note 2 - Date of Service December 01, 2021 - Glycemic Short BSG Results (Last 24 hours): 11/30/21 11/30/21 11/30/21 16:04 16:22 16:40 Glucose POC Glucose 66 L* 68 L* 71 11/30/21 12/01/21 12/01/21 20:50 06:01 08:03 Glucose 217 H POC Glucose 218 H 193 H 12/01/21 12:17 Glucose POC Glucose 102 H OUTPATIENT ANTIDIABETIC REGIMEN: * Novolog insulin pump: ~53 units/day * Basal: 1.65 units/hr (39.6 units/day) * Correction Factor: 30 mg/dL/unit * Nutritional / Prandial insulin per carb ratio of 1 unit per 6 grams CHO consumed * HbA1c: 8.0% (11/11/21) ASSESSMENT: 12/01: * Insulin regimen has been stable since 11/27. * Ron received 72 units of insulin yesterday (38 units Lantus + 34 units novolog) * Fasting BSG remains elevated but is trending downward. * Post prandial BSGs continue to fluctuate. Will make slight adjustments to carb coverage. * Plan to transition patient back to home insulin pump on 12/02 AM. * Discussed with both patient and provider. CDE will evaluate patient in AM and assist with transition if needed. * Discontinue Lantus after today's dose 11/27: * Patient received total 72 units of insulin yesterday; 38 units basal + 34 units bolus. * BSGs yesterday were [phone] mg/dl. Mr. Chowdhury was hypoglycemic at dinner yesterday. * Novolog CR was tightened today to prevent lunch high but loosened parameters at lunch to prevent dinner low. * Basal dose continued the same 11/26 * Glycemic control acceptable for this patient over last 24 hrs given lability * Fasting BSG 165 this AM w/ 38 units Lantus on board - acceptable for this patient, will continue * Pre-lunch hyperglycemia acceptable with AM Novolog dose, however BSG again fell quickly prior to dinner. Will lessen prandial insulin doses with lunch and dinner to prevent hypoglycemia 11/25 * Pre-dinner hypoglycemia observed yesterday. This may be due to insulin "stacking" as most recent prandial insulin change was to allow for a larger prandial dose w/ breakfast which has helped with pre-lunch highs. Will continue larger prandial doses w/ breakfast however lessen prandial doses with other meals to decrease hypoglycemia risk. * Fasting BSG elevated this AM, however BSG 113-162 overnight which makes me hesitant to adjust basal insulin dose. Current basal dose is nearly equivalent to that provided by insulin pump. PLAN FOR INPATIENT GLYCEMIC CONTROL: * Basal insulin * Lantus 38 units SQ Q AM * Plan to transition to home insulin pump 12/02 AM * Bolus insulin - * NovoLog per scale ACHS * Goal Range: 120 mg/dL - 150 mg/dL (breakfast), 130 - 160 mg/dL (lunch/dinner/HS) * Correction Factor: 20 mg/dL/unit with breakfast, 45 mg/dL/unit with lunch and 30 mg/dl/unit with dinner/HS * Nutritional / Prandial insulin per carb ratio of 1 unit per 3 grams CHO consumed w/ breakfast + 1 unit per 15 grams CHO consumed w/ lunch and 1 unit per 7 grams of CHO consumed with other meals
--- NOTE | 2021-12-01 16:41 | Hospitalist Progress Note ---
Date of Service December 01, 2021 Assessment & Plan (1) Diabetic ulcer of left foot: Plan: POD #8 s/p TMA left foot by Dr Soto. Presented with L great toe infection/e schar, 3rd toe infection/dry gangrene, 4th toe dry gangrene, heel necrotic tissue, etc. Wound cx with pansensitive Pseudomonas and S. Aureus (MSSA). Rx with zosyn since admission, and some daptomycin use (being used for MSSA, but also with h/o VRE). Zosyn/daptomycin discontinued on 11/[address] Soto. He reported that the L foot heel was clean and without infection. Previous gangrenous toes are now absent s/p amputation. The TMA incision line is clean per Dr Soto as well. Woundvac in place and exchanged 11/26/[address] Soto/wound care team. Woundvac changes planned M/W/F. NWB status to LLE. (2) PVD (peripheral vascular disease): Plan: Prior history of B/L iliac artery stents (2014), R common/external iliac (2017), R common femoral endarterectomy (11/2018) with bovine patch. Left femoral to PT composite bypass graft (06/2020). Right BKA procedure June 2021. This admission -- S/P L fem-anterior tibial bypass with Dr Eason on 11/19/21. Per Dr Eason he is pleased with the outcome from a vascular standpoint. Remains on aspirin, plavix, and statin. (3) Diabetes mellitus type 1: Plan: Uncontrolled and labile due to stress of #1 and his surgeries. Recent HbA1c was 8%. On insulin pump at home -ordered to be restarted today, December 01. (4) CAD (coronary artery disease): Plan: S/P CABG x 1 (2015). Aortic Stenosis S/P porcine AV. Continue ASA, metoprolol, statin, and Plavix. (5) Clostridium difficile colitis: Plan: H/O -- previously on slow long taper of po Vanc last admission. C. diff checked x 2 this admission -- both negative. Cont probiotics. (6) Hypertension: Plan: Cont metoprolol 12.5 mg BID (7) Dyslipidemia: Plan: statin therapy (8) Hypothyroidism: Plan: Continue Levothyroxine. TSH 11/2021 wnl (9) Diabetic nephropathy associated with type 1 diabetes mellitus: Plan: Continue daily iron, calcitriol, and potassium supplement. Low BP will not tolerate ACEI or ARB (10) Hyponatremia: Plan: resolved (11) Folate deficiency: Plan: history dating back to 03/2021 - replaced with folate since then. B12 level this admission low-normal -- was given IM supplementation earlier in the visit. Treated with folate supplementation. (12) Below-knee amputation of right lower extremity: Plan: June 2021. Follows with Dr. Soto - [facility]. Has prosthesis (13) Candidal diaper rash: Plan: Treated with nystatin powder TID . Resolved (14) Rectal pain: Plan: had proctitis in 04/2021 based on imaging. C diff x 2 negative this admission. Resolved (15) Anemia: Plan: Chronic. He did receive some IV venofer earlier this admission. If Hb 7 or less - Tx PRBCs Plan: Disposition: Eventual discharge to SNF facility. Cont PT/OT. Admission and Anticipated Discharge Date Admission Date: November 10, 2021 Subjective Alert and oriented. No change in clinical status. Orthopedic entry noted. Postoperative day #8. Review of Systems Review of Systems: Constitutional-no fever or chills ENT-no blurred vision, no double vision, no epistaxis, no sore throat Respiratory-no cough, no wheezing, no shortness of breath Cardiac-no palpitations, no chest pain, no syncope GI-no nausea, vomiting, diarrhea, melena, hematochezia -no urinary retention, no urinary incontinence, no dysuria, no hematuria Musculoskeletal-no joint pain, no muscle tenderness Skin-no bruising, no rashes, no pruritus Neuro-no isolated weakness, no paresthesia, no weakness Psych-no depression, no anxiety Physical Exam Physical Exam: General-alert and oriented x3, no fevers, no chills HEENT-head atraumatic and normocephalic, TMs intact bilaterally, pupils equal and reactive to light, extraocular muscles intact Neck-no lymphadenopathy or thyromegaly, trachea midline Chest-clear to auscultation percussion. No rales wheezing or rhonchi Cardiac-regular rate and rhythm, normal S1 and S2, no murmurs Abdomen-normal bowel sounds, nontender, no hepatosplenomegaly Extremities-right BKA status. Left foot transmetatarsal amputation status with heavy bandages. Wound description noted per orthopedics Neuro-cranial nerves II through XII intact, motor and sensory function within normal limits, strength symmetrical , no focal deficits Psych-normal affect, normal mood Results & Data Results & Data ([facility]) Vital Signs (Past 12 Hours) Vital Signs Temp Pulse Resp BP Pulse Ox 12/01/21 16:29 36.4 C L 73 16 120/72 99 12/01/21 08:08 36.7 C 72 16 139/78 98 Laboratory Results 12/01/21 06:01 12/01/21 06:01 PG Care Time/CCT Total # of Minutes Spent Total Time Spent with Patient: Total time spent is greater than 50% in coordination of care (as documented) at patient's floor/unit and/or counseling patient: Coding Level of Care Code 32736 Subseq Hosp Care Lvl 3 Diagnoses Diabetic ulcer of left foot E11.621; L97.529 PVD (peripheral vascular disease) I73.9 Diabetes mellitus type 1 E10.9 CAD (coronary artery disease) I25.10 Coronary Disease-Associated Artery/Lesion type: [place] artery [place] vs. transplanted heart: [place] heart Associated angina: without angina Clostridium difficile colitis A04.72 Hypertension I10 Hypertension type: unspecified Dyslipidemia E78.5 Hypothyroidism E03.9 Hypothyroidism type: unspecified Diabetic nephropathy associated with type 1 diabetes mellitus E10.21 Hyponatremia E87.1 Folate deficiency E53.8 Below-knee amputation of right lower extremity S88.111A Candidal diaper rash B37.2; L22 Rectal pain K62.89 Anemia D64.9 (1) CAD (coronary artery disease) Coronary Disease-Associated Artery/Lesion type: [place] artery [place] vs. transplanted heart: [place] heart Associated angina: without angina Qualified Code(s): I25.10 - Atherosclerotic heart disease of [place] coronary artery without angina pectoris (2) Hypertension Hypertension type: unspecified Qualified Code(s): I10 - Essential (primary) hypertension (3) Hypothyroidism Hypothyroidism type: unspecified Qualified Code(s): E03.9 - Hypothyroidism, unspecified
[2021-12-01] MEDS: ATORVASTATIN 40 MG TAB PO SCH (22:04)
[2021-12-02] MEDS: LEVOTHYROXINE SODIUM 175 MCG TABLET PO SCH (06:04)
--- NOTE | 2021-12-02 09:18 | Pharmacy Report ---
Pharmacy Glycemic Short Note 2 - Date of Service December 02, 2021 - Glycemic Short BSG Results (Last 24 hours): 12/01/21 12/01/21 12/01/21 12:17 17:17 20:51 POC Glucose 102 H 134 H 129 H 12/02/21 08:10 POC Glucose 100 H OUTPATIENT ANTIDIABETIC REGIMEN: * Novolog insulin pump: ~53 units/day * Basal: 1.65 units/hr (39.6 units/day) * Correction Factor: 30 mg/dL/unit * Nutritional / Prandial insulin per carb ratio of 1 unit per 6 grams CHO consumed * HbA1c: 8.0% (11/11/21) ASSESSMENT: 12/02: * Patient with excellent glycemic control over the past 24 hours (38 units Lantus + 33 units Novolog) * Discharge planning - currently waiting for placement. Will transition patient back to home insulin pump. 12/01: * Insulin regimen has been stable since 11/27. * Ron received 72 units of insulin yesterday (38 units Lantus + 34 units novolog) * Fasting BSG remains elevated but is trending downward. * Post prandial BSGs continue to fluctuate. Will make slight adjustments to carb coverage. * Plan to transition patient back to home insulin pump on 12/02 AM. * Discussed with both patient and provider. CDE will evaluate patient in AM and assist with transition if needed. * Discontinue Lantus after today's dose 11/27: * Patient received total 72 units of insulin yesterday; 38 units basal + 34 units bolus. * BSGs yesterday were [phone] mg/dl. Mr. Chowdhury was hypoglycemic at dinner yesterday. * Novolog CR was tightened today to prevent lunch high but loosened parameters at lunch to prevent dinner low. * Basal dose continued the same 11/26 * Glycemic control acceptable for this patient over last 24 hrs given lability * Fasting BSG 165 this AM w/ 38 units Lantus on board - acceptable for this patient, will continue * Pre-lunch hyperglycemia acceptable with AM Novolog dose, however BSG again fe ll quickly prior to dinner. Will lessen prandial insulin doses with lunch and dinner to prevent hypoglycemia 11/25 * Pre-dinner hypoglycemia observed yesterday. This may be due to insulin "stacking" as most recent prandial insulin change was to allow for a larger prandial dose w/ breakfast which has helped with pre-lunch highs. Will continue larger prandial doses w/ breakfast however lessen prandial doses with other meals to decrease hypoglycemia risk. * Fasting BSG elevated this AM, however BSG 113-162 overnight which makes me hesitant to adjust basal insulin dose. Current basal dose is nearly equivalent to that provided by insulin pump. PLAN FOR INPATIENT GLYCEMIC CONTROL: * Discontinue Lantus and Novolog CF/CR orders * Start Novolog insulin pump * Pt is to manage BSGs with insulin pump per outpatient settings. If at any time the patients condition evidences that he/she is not able to manage the insulin pump (i.e. frequent hypo/hyperglycemia) Pharmacy will assume glycemic control by discontinuing the pump & managing with SQ basal bolus insulin regimen for the interim.
[2021-12-02] MEDS: INSULIN ASPART PER UNIT SC SCH (09:45)
[2021-12-02] MEDS: ADVANCED PROBIOTIC 1250 MG CAPSULE PO SCH (09:47)
[2021-12-02] MEDS: CALCITRIOL 0.25 MCG CAPSULE PO SCH (09:48)
[2021-12-02] MEDS: METOPROLOL TARTRATE 25 MG TAB PO SCH ×2 (09:48→21:05)
[2021-12-02] MEDS: HEPARIN SOD 5,000 UNIT/0.5 ML VIAL SQ SCH ×2 (09:49→21:03)
[2021-12-02] MEDS: FERROUS SULFATE 325 MG TAB PO SCH ×2 (09:51→21:06)
[2021-12-02] MEDS: PANTOprazole 40 MG TAB PO SCH (09:51)
[2021-12-02] MEDS: ASPIRIN 81 MG ECTAB PO SCH (09:51)
[2021-12-02] MEDS: CYANOCOBALAMIN (B-12) 500 MCG TABLET PO SCH (09:52)
[2021-12-02] MEDS: POTASSIUM CHLORIDE 20 MEQ/15 ML UDC PO SCH (09:53)
[2021-12-02] MEDS: NYSTATIN POWDER 15GM BTL EXT SCH ×3 (09:53→21:12)
[2021-12-02] MEDS: NovoLOG INSULIN PUMP SCH ×3 (10:32→21:05)
[2021-12-02] MEDS: CLOPIDOGREL BISULFATE 75 MG TAB PO SCH (11:27)
--- NOTE | 2021-12-02 12:55 | Hospitalist Progress Note ---
Date of Service December 02, 2021 Assessment & Plan (1) Diabetic ulcer of left foot: Plan: POD #9 s/p TMA left foot by Dr Soto. Presented with L great toe infection/e schar, 3rd toe infection/dry gangrene, 4th toe dry gangrene, heel necrotic tissue, etc. Wound cx with pansensitive Pseudomonas and S. Aureus (MSSA). Rx with zosyn since admission, and some daptomycin use (being used for MSSA, but also with h/o VRE). Zosyn/daptomycin discontinued on 11/[address] Soto. He reported that the L foot heel was clean and without infection. Previous gangrenous toes are now absent s/p amputation. The TMA incision line is clean per Dr Soto as well. Woundvac in place and exchanged 11/26/[address] Soto/wound care team. Woundvac changes planned M/W/F. NWB status to LLE. (2) PVD (peripheral vascular disease): Plan: Prior history of B/L iliac artery stents (2014), R common/external iliac (2017), R common femoral endarterectomy (11/2018) with bovine patch. Left femoral to PT composite bypass graft (06/2020). Right BKA procedure June 2021. This admission -- S/P L fem-anterior tibial bypass with Dr Eason on 11/19/21. Per Dr Eason he is pleased with the outcome from a vascular standpoint. Remains on aspirin, plavix, and statin. (3) Diabetes mellitus type 1: Plan: Uncontrolled on admission due to osteomyelitis and cellulitis of the left forefoot. Now much improved. Recent HbA1c was 8%. On insulin pump at home - restarted December 01. (4) CAD (coronary artery disease): Plan: S/P CABG x 1 (2015). Aortic Stenosis S/P porcine AV. Continue ASA, metoprolol, statin, and Plavix. (5) Clostridium difficile colitis: Plan: H/O -- previously on slow long taper of po Vanc last admission. C. diff checked x 2 this admission -- both negative. Cont probiotics. (6) Hypertension: Plan: Cont metoprolol 12.5 mg BID (7) Dyslipidemia: Plan: statin therapy (8) Hypothyroidism: Plan: Continue Levothyroxine. TSH 11/2021 wnl (9) Diabetic nephropathy associated with type 1 diabetes mellitus: Plan: Continue daily iron, calcitriol, and potassium supplement. Low BP will not tolerate ACEI or ARB (10) Hyponatremia: Plan: resolved (11) Folate deficiency: Plan: history dating back to 03/2021 - replaced with folate since then. B12 level this admission low-normal -- was given IM supplementation earlier in the visit. Treated with folate supplementation. (12) Below-knee amputation of right lower extremity: Plan: June 2021. Follows with Dr. Soto - [facility]. Has prosthesis (13) Candidal diaper rash: Plan: Treated with nystatin powder TID . Resolved (14) Rectal pain: Plan: had proctitis in 04/2021 based on imaging. C diff x 2 negative this admission. Resolved (15) Anemia: Plan: Chronic. He did receive some IV venofer earlier this admission. If Hb 7 or less - Tx PRBCs Plan: Disposition: Eventual discharge to SNF facility. Possibly [place]. Cont PT/OT. Admission and Anticipated Discharge Date Admission Date: November 10, 2021 Subjective Medically stable. No new problems. Postoperative day #9. Insulin pump was restarted yesterday, December 01, and glucose this morning is 100. Awaiting SNF transfer to [facility] once final arrangements are made. Review of Systems Review of Systems: Constitutional-no fever or chills ENT-no blurred vision, no double vision, no epistaxis, no sore throat Respiratory-no cough, no wheezing, no shortness of breath Cardiac-no palpitations, no chest pain, no syncope GI-no nausea, vomiting, diarrhea, melena, hematochezia -no urinary retention, no urinary incontinence, no dysuria, no hematuria Musculoskeletal-no joint pain, no muscle tenderness Skin-no bruising, no rashes, no pruritus Neuro-no isolated weakness, no paresthesia, no weakness Psych-no depression, no anxiety Physical Exam Physical Exam: General-alert and oriented x3, no fevers, no chills HEENT-head atraumatic and normocephalic, TMs intact bilaterally, pupils equal and reactive to light, extraocular muscles intact Neck-no lymphadenopathy or thyromegaly, trachea midline Chest-clear to auscultation percussion. No rales wheezing or rhonchi Cardiac-regular rate and rhythm, normal S1 and S2, no murmurs Abdomen-normal bowel sounds, nontender, no hepatosplenomegaly Extremities-right BKA status. Left forefoot heavily bandaged after recent left transmetatarsal amputation Neuro-cranial nerves II through XII intact, motor and sensory function within normal limits, strength symmetrical , no focal deficits Psych-normal affect, normal mood Results & Data Results & Data ([facility]) Vital Signs (Past 12 Hours) Vital Signs Temp Pulse Resp BP Pulse Ox 12/02/21 07:33 36.5 C 66 15 120/60 98 Laboratory Results 12/01/21 06:01 12/01/21 06:01 PG Care Time/CCT Total # of Minutes Spent Total Time Spent with Patient: Total time spent is greater than 50% in coordination of care (as documented) at patient's floor/unit and/or counseling patient: Coding Level of Care Code 10128 Subseq Hosp Care Lvl 3 Diagnoses Diabetic ulcer of left foot E11.621; L97.529 PVD (peripheral vascular disease) I73.9 Diabetes mellitus type 1 E10.9 CAD (coronary artery disease) I25.10 Coronary Disease-Associated Artery/Lesion type: [place] artery [place] vs. transplanted heart: [place] heart Associated angina: without angina Clostridium difficile colitis A04.72 Hypertension I10 Hypertension type: unspecified Dyslipidemia E78.5 Hypothyroidism E03.9 Hypothyroidism type: unspecified Diabetic nephropathy associated with type 1 diabetes mellitus E10.21 Hyponatremia E87.1 Folate deficiency E53.8 Below-knee amputation of right lower extremity S88.111A Candidal diaper rash B37.2; L22 Rectal pain K62.89 Anemia D64.9 (1) CAD (coronary artery disease) Coronary Disease-Associated Artery/Lesion type: [place] artery [place] vs. transplanted heart: [place] heart Associated angina: without angina Qualified Code(s): I25.10 - Atherosclerotic heart disease of [place] coronary artery without angina pectoris (2) Hypertension Hypertension type: unspecified Qualified Code(s): I10 - Essential (primary) hypertension (3) Hypothyroidism Hypothyroidism type: unspecified Qualified Code(s): E03.9 - Hypothyroidism, unspecified
[2021-12-02] MEDS ORDERED: INSULIN ASPART PER UNIT SC SCH (17:15)
[2021-12-02] MEDS ORDERED: Nursing to Pharmacy Communication SCH (17:15)
[2021-12-02] MEDS: ATORVASTATIN 40 MG TAB PO SCH (21:47)
[2021-12-03] MEDS: LEVOTHYROXINE SODIUM 175 MCG TABLET PO SCH (06:34)
[2021-12-03] MEDS ORDERED: INSULIN ASPART PER UNIT SC SCH ×2 (07:30→11:30)
[2021-12-03] MEDS: CYANOCOBALAMIN (B-12) 500 MCG TABLET PO SCH (08:41)
[2021-12-03] MEDS: METOPROLOL TARTRATE 25 MG TAB PO SCH (08:41)
[2021-12-03] MEDS: ADVANCED PROBIOTIC 1250 MG CAPSULE PO SCH (08:41)
[2021-12-03] MEDS: PANTOprazole 40 MG TAB PO SCH (08:42)
[2021-12-03] MEDS: CALCITRIOL 0.25 MCG CAPSULE PO SCH (08:42)
[2021-12-03] MEDS: FERROUS SULFATE 325 MG TAB PO SCH (08:42)
[2021-12-03] MEDS: POTASSIUM CHLORIDE 20 MEQ/15 ML UDC PO SCH (08:42)
[2021-12-03] MEDS: ASPIRIN 81 MG ECTAB PO SCH (08:42)
[2021-12-03] MEDS: HEPARIN SOD 5,000 UNIT/0.5 ML VIAL SQ SCH (08:46)
[2021-12-03] MEDS: CLOPIDOGREL BISULFATE 75 MG TAB PO SCH (09:45)
[2021-12-03] MEDS: NYSTATIN POWDER 15GM BTL EXT SCH ×2 (09:45→14:01)
[2021-12-03] MEDS: NovoLOG INSULIN PUMP SCH ×2 (10:23→14:00)
--- NOTE | 2021-12-03 11:12 | Discharge Summary ---
Date of Service December 03, 2021 Admission HPI Per Admitting Provider 66 y/o M w PMH of poorly controlled DM1 with diabetic foot ulcers, PAD, CAD s/p CABG X1 in 2016 CKD stage III, hypertension, aortic stenosis s/p porcine valve replacement in 2016, osteoporosis, and hypothyroidism who presents to the ED directly from the wound care clinic due to several necrotic, ulcerative wounds to his left foot. Patient has been following with Dr. Soto post right BKA in June 2021 and most recently developed a gangrenous area to the medial aspect of the left great toe.Patient was last seen by orthopedics on 11/03/2021 where referral was placed to the wound clinic for the toe. Since that last orthopedic visit he has developed "black areas" to the 3rd toe, plantar surface of the foot and heel. Erythema has developed to the dorsal surface of the left foot over the last 2 weeks with increasing pain to the left heel noted this week. Patient is currently not on antibiotics or been applying a dressing to the wounds. Patient is also followed by vascular surgery, he had undergone a prior left femoral distal bypass [address] Eason as well as a failed right femoropopliteal bypass in 2020. Besides the development of several wounds, patient has otherwise felt well, he denies fever/chills, chest pain, palpitations, SOB, nausea, vomiting, abdominal pain, weakness. He denies any recent injury to his foot, denies pallor, decreased temperature, or significant pain at left foot or ankle. In ED, pt was initially normotensive with BP 140/83, however he apparently became borderline hypotensive with lowest BP 96/53. He received a 1L NS bolus and maintenance fluids, SBP now in 150s. VS otherwise within normal limits and stable, pt is afebrile. CBC with WBC 18.36, Hgb 12.6 appears to be at baseline. ESR 71, CRP 7.92, PCT 0.08, lactate 1.0. CMP with Na+ 132, Cl 97, glucose 349, Tbili 1.3, alk phos 131 which is chronically elevated. Left foot XR significant for soft tissue swelling w/o acute bony abnormalities ID'd, osteopenia with post-op and advanced degenerative changes. Wound culture obtained, pending. In addition to IVF, pt received 10 units insulin, was started on Daptomycin and Zosyn based on growth from previous cultures. Hospitalist service was consulted for evaluation and admission. Principal Diagnosis Left forefoot diabetic ulceration with underlying osteomyelitis, status post left transmetatarsal amputation Discharge Exam General-alert and oriented x3, no fevers, no chills HEENT-head atraumatic and normocephalic, TMs intact bilaterally, pupils equal and reactive to light, extraocular muscles intact Neck-no lymphadenopathy or thyromegaly, trachea midline Chest-clear to auscultation percussion. No rales wheezing or rhonchi Cardiac-regular rate and rhythm, normal S1 and S2, no murmurs Abdomen-normal bowel sounds, nontender, no hepatosplenomegaly Extremities-right BKA status. Left transmetatarsal amputation site is heavily bandaged with wound VAC in place Neuro-cranial nerves II through XII intact, motor and sensory function within normal limits, strength symmetrical, no focal deficits Psych-normal affect, normal mood Discharge Data Allergies Allergy/AdvReac Type Severity Reaction Status Date / Time No Known Allergies Allergy Unknown Verified 11/23/21 12:17 Consultations 11/10/21 17:25 ED Decision to Admit Stat 11/10/21 19:28 Consult Orthopedic Surgery Stat 11/10/21 21:12 Consult Vascular Surgery Routine Procedures Performed Operation Date: 11/15/21 11:25 Actual Procedures p Left Lower Extremity Angiogram, ultrasound localization of right femoral artery, mechanical closure of right femoral artery moderate sedation 1050- 1143(Right) - Floyd Eason MD Operation Date: 11/19/21 09:05 Actual Procedures p Left Femoral to Anterior Tibial Bypass with Cadaver Vein and Embolization of side branch of the bypass(Left) - Floyd Eason MD Operation Date: 11/23/21 12:45 Actual Procedures p Left Transmetatarsal Amputation(Left) - Xander Soto MD s Left Heel Debridement with Wound Vac Application(Left) - Xander Soto MD Ordered Studies 11/10/21 19:09 US arterial duplex LE LT Urgent 11/15/21 07:13 EV angio LE LT Routine US EV guide vascular access Routine 11/15/21 12:02 US venous mapping LE LT Routine 11/19/21 07:09 EV angio LE LT Routine 11/23/21 12:45 FL foot LT 2V Routine Hospital Course (1) Diabetic ulcer of left foot: POD #10 s/p TMA left foot by Dr Soto. Presented with L great toe infection/eschar, 3rd toe infection/dry gangrene, 4th toe dry gangrene, heel necrotic tissue, etc. Wound cx with pansensitive Pseudomonas and S. Aureus (MSSA). Rx with zosyn since admission, and some daptomycin use (being used for MSSA, but also with h/o VRE). Zosyn/daptomycin discontinued on 11/[address] Soto. He reported that the L foot heel was clean and without infection. Previous gangrenous toes are now absent s/p amputation. The TMA incision line is clean per Dr Soto as well. Woundvac in place and being exchanged every few days by Dr Soto/wound care team. Woundvac changes planned M/W/F. NWB status to LLE. (2) PVD (peripheral vascular disease): Prior history of B/L iliac artery stents (2014), R common/external iliac (2017), R common femoral endarterectomy (11/2018) with bovine patch. Left femoral to PT composite bypass graft (06/2020). Right BKA procedure June 2021. This admission -- S/P L fem-anterior tibial bypass with Dr Eason on 11/19/21. Follow-up scheduled with Dr. Eason on December 09. Remains on aspirin, plavix, and statin. (3) Diabetes mellitus type 1: Uncontrolled on admission due to osteomyelitis and cellulitis of the left forefoot. Now much improved. Recent HbA1c was 8%. On insulin pump at home - restarted December 01. Insulin pump was temporarily discontinued on December 02 due to hypoglycemia and subsequently has been restarted. (4) CAD (coronary artery disease): S/P CABG x 1 (2015). Aortic Stenosis S/P porcine AV. Continue ASA, metoprolol, statin, and Plavix. (5) Clostridium difficile colitis: H/O -- previously on slow long taper of po Vanc last admission. C. diff checked x 2 this admission -- both negative. Cont probiotics. (6) Hypertension: Cont metoprolol 12.5 mg BID (7) Dyslipidemia: statin therapy (8) Hypothyroidism: Continue Levothyroxine. TSH 11/2021 wnl (9) Diabetic nephropathy associated with type 1 diabetes mellitus: Continue daily iron, calcitriol, and potassium supplement. Low BP will not tolerate ACEI or ARB (10) Hyponatremia: resolved (11) Folate deficiency: history dating back to 03/2021 - replaced with folate since then. B12 level this admission low-normal -- was given IM supplementation earlier in the visit. Treated with folate supplementation. (12) Below-knee amputation of right lower extremity: June 2021. Follows with Dr. Soto - [facility]. Has prosthesis (13) Candidal diaper rash: Treated with nystatin powder TID . Resolved (14) Rectal pain: had proctitis in 04/2021 based on imaging. C diff x 2 negative this admission. Resolved (15) Anemia: Chronic. He did receive some IV venofer earlier this admission. If Hb 7 or less - Tx PRBCs Disposition: discharge to [facility] December 03 Total Time Total Time Spent Total Time Spent (In Minutes): 40 minutes Discharge Plan Discharge Items Patient Disposition: Transfer Assisted Fac Reason For Visit: INFECTED WOUND Discharge Diagnosis: Left forefoot ulceration with osteomyelitis, peripheral vascular insufficiency Activity: Per Instructions section Non-emergency contact: Primary Care Provider Call non-emergency contact if: you have any medication questions Follow-up/Referrals: Ivelisse Oconnell MD [Primary Care Provider] - Xander Soto MD [Surgeon] - 12/10/21 10:30 am Diet: Carb Count or DM1 and Heart Healthy Addtl Attending Provider Instructions: Wound VAC to the left foot will be changed every Monday. Follow-up with Dr. Soto, orthopedics, in 2 weeks Addtl Customs Inspector Provider Instructions: Keep splint on left lower extremity at all times. May remove splint for wound vac, dressing changes. Redress wound with xeroform or adaptic, 4x4's and abd pads with cast padding or Jeffrey and ramsey bandage Nonweightbearing left lower extremity. Consult orthotics or have appointment ready for when incision is healed. Be in 3 to 4 weeks. Allowed to cleanse incision with sterile saline or soap and water. Call with any increased drainage, redness, warmth, pain or swelling to left foot. Will need wound VAC changed every Monday, Monday and Monday Either by home health or outpatient wound clinic. Elevate left foot above heart consistently. Follow-up with Dr. Simoni as instructed. Pending Studies at Discharge: No Stand-Alone Forms: My [facility] Skilled Items Patient informed of condition?: Yes DNR: No Discharge Level of Care: Skilled Communicable Disease: No Discharge Prognosis: Stable Lines: None Urinary Catheter: No Medications and DC Order Prescriptions: New polyethylene glycol 3350 [Miralax] 17 gram Powder In Packet 17 g PO DAILY PRN (Reason: constipation) Qty: 10 RF: 0 Continued clopidogrel [Plavix] 75 mg tablet 75 mg PO QAM Qty: 30 RF: 5 metoprolol tartrate 25 mg tablet 12.5 mg PO BID Qty: 90 RF: 3 calcitriol [Rocaltrol] 0.25 mcg capsule 0.25 mcg PO QAM Qty: 30 RF: 5 pantoprazole [Protonix] 40 mg tablet,delayed release (DR/EC) 40 mg PO QAM Qty: 30 RF: 5 ferrous sulfate 325 mg (65 mg iron) tablet,delayed release (DR/EC) 325 mg PO BID Qty: 60 RF: 5 folic acid 1 mg tablet 1 mg PO QAM Qty: 30 RF: 5 (DME) Bed Side Commode Misc See Rx Instructions .Route Qty: 1 RF: 0 (DME) Commode rails round See Rx Instructions .Route .MEDSUPPLY Qty: 1 RF: 0 potassium chloride 20 mEq tablet extended release 20 meq PO BID Qty: 60 RF: 5 atorvastatin [Lipitor] 80 mg tablet 80 mg PO HS Qty: 90 RF: 3 Adult 50 Plus Probiotic 4 billion cell capsule 4,000 mmu cells PO DAILY RF: 0 levothyroxine [Synthroid] 175 mcg tablet 175 mcg PO QAM RF: 0 aspirin [Aspirin Low Dose] 81 mg tablet,delayed release (DR/EC) 81 mg PO QAM RF: 0 Discontinued insulin aspart U-100 [Novolog U-100 Insulin aspart] 100 unit/mL solution 75 unit SQ CONT 90 Days Qty: 70 RF: 3 insulin aspart U-100 [Novolog Flexpen U-100 Insulin] 100 unit/mL (3 mL) Insulin Pen See Rx Instructions .ROUTE .COMPLEX Qty: 3 RF: 0 Admission Data Admit Date/Time: 11/10/21 17:51 Attending Provider: Alexis Luis Admit Provider: Isaac Carrillo Primary Care Provider: Ivelisse Oconnell Other Providers: Harley Sharp ; [facility] ; [facility] ; Isaac Carrillo ; Xander Soto ; Floyd Eason ; [facility] Coding Level of Care Code D/C DAY MANAGEMENT >30 MINS Diagnoses Diabetic ulcer of left foot E11.621; L97.529 PVD (peripheral vascular disease) I73.9 Diabetes mellitus type 1 E10.9 CAD (coronary artery disease) I25.10 Coronary Disease-Associated Artery/Lesion type: [place] artery [place] vs. transplanted heart: [place] heart Associated angina: without angina Clostridium difficile colitis A04.72 Hypertension I10 Hypertension type: unspecified Dyslipidemia E78.5 Hypothyroidism E03.9 Hypothyroidism type: unspecified Diabetic nephropathy associated with type 1 diabetes mellitus E10.21 Hyponatremia E87.1 Folate deficiency E53.8 Below-knee amputation of right lower extremity S88.111A Candidal diaper rash B37.2; L22 Rectal pain K62.89 Anemia D64.9
== END 2021-12-03 15:50 | DRG 617 ==
LOC: ED 16:14 → SUATTDRO 17:51 → 2W 17:51 → 2E 11-19 15:17 → 3E 11-28 17:16
DX: E10.621 Type 1 diabetes mellitus with foot ulcer; Z87.19 Personal history of other diseases of the digestive system; L89.529 Pressure ulcer of left ankle, unspecified stage; N18.30 Chronic kidney disease, stage 3 unspecified; B95.61 Methicillin susceptible Staphylococcus aureus infection as the cause of diseases classified elsewhere; B96.5 Pseudomonas (aeruginosa) (mallei) (pseudomallei) as the cause of diseases classified elsewhere; L22 Diaper dermatitis; D62 Acute posthemorrhagic anemia; Z79.82 Long term (current) use of aspirin; E87.1 Hypo-osmolality and hyponatremia; I70.92 Chronic total occlusion of artery of the extremities; E03.9 Hypothyroidism, unspecified; Z95.2 Presence of prosthetic heart valve; I25.10 Atherosclerotic heart disease of native coronary artery without angina pectoris; Z86.19 Personal history of other infectious and parasitic diseases; Z96.41 Presence of insulin pump (external) (internal); E10.52 Type 1 diabetes mellitus with diabetic peripheral angiopathy with gangrene; K62.89 Other specified diseases of anus and rectum; I70.702 Unspecified atherosclerosis of other type of bypass graft(s) of the extremities, left leg; E53.8 Deficiency of other specified B group vitamins; Z79.890 Hormone replacement therapy; L97.428 Non-pressure chronic ulcer of left heel and midfoot with other specified severity; Z79.02 Long term (current) use of antithrombotics/antiplatelets; E10.22 Type 1 diabetes mellitus with diabetic chronic kidney disease; Z79.899 Other long term (current) drug therapy; Z89.511 Acquired absence of right leg below knee; M86.9 Osteomyelitis, unspecified; R19.7 Diarrhea, unspecified; L03.116 Cellulitis of left lower limb; I70.202 Unspecified atherosclerosis of native arteries of extremities, left leg; Z89.422 Acquired absence of other left toe(s); Z95.1 Presence of aortocoronary bypass graft; E78.5 Hyperlipidemia, unspecified; E10.65 Type 1 diabetes mellitus with hyperglycemia; Z86.79 Personal history of other diseases of the circulatory system; Z87.891 Personal history of nicotine dependence; Z83.3 Family history of diabetes mellitus; I95.9 Hypotension, unspecified; Z95.820 Peripheral vascular angioplasty status with implants and grafts; I10 Essential (primary) hypertension; L97.528 Non-pressure chronic ulcer of other part of left foot with other specified severity

== ENCOUNTER 2022-01-04 10:46 | Observation (INO) ==
[2022-01-04] MEDS ORDERED: FAMOTIDINE 20MG IV PUSH 20 MG/5 ML SYR IV STA (12:32)
[2022-01-04] MEDS ORDERED: SODIUM CHLORIDE 0.9% 500 ML IV ONE ×2 (12:58→15:30)
--- NOTE | 2022-01-04 13:21 | XRay Report ---
SINGLE VIEW CHEST CLINICAL HISTORY: Atypical chest pain. FINDINGS: An AP, portable, upright chest radiograph is compared to study dated 11/18/2021. The patient is status post midline sternotomy. The cardiomediastinal silhouette is unremarkable noting atheroscl erotic calcification of the thoracic aorta. There is chronic elevation of the right hemidiaphragm. Th ere are asymmetric airspace opacities at the right lung base. No large pleural effusion or pneumothor ax is seen. The skeletal structures are osteopenic. The bony thorax is grossly intact. IMPRESSION: Asymmetric airspace opacities at the right lung base likely represent atelectasis. Clinic al correlation will be required and follow-up to resolution is recommended. ACT 112: Negative or not required by law. Electronically signed by: Tae Pizarro M.D. 01/04/2022 1:20 PM
[2022-01-04 13:59] LABS: Albumin Level 3.4 gm/dl (3.4-5.0); Bilirubin,Total 0.4 mg/dl (0.2-1.0); Calcium 9.2 mg/dl (8.5-10.1); Magnesium 1.7 mg/dl (1.7-2.4); Potassium 4.2 mmol/L (3.5-5.1)
[2022-01-04 14:05] LABS: Albumin Globulin Ratio 0.9 (0.9-2); Basophils # (auto) 0.02 K/uL (0-0.2); Basophils % (auto) 0.1 %; Creatinine Clr Calc Pharmacy 114.5 ml/min; Eosinophils # (auto) 0.01 K/uL (0-0.5); Eosinophils % (auto) 0.1 %; Est GFR (African American) 115.6 ml/min; Est GFR (Non-African American) 99.7 ml/min; Globulin 3.6 gm/dl (2.5-4.0); Hematocrit (blood only) 35.5 % (42-52); Hemoglobin 11.3 g/dL (14.0-18.0); Immature Granulocytes # (auto) 0.06 K/uL (0.00-0.02); Immature Granulocytes % (auto) 0.3 %; Lymphocytes % (auto) 5.6 %; Mean Corpuscular Hemoglobin 28.5 pg (25-34); Mean Corpuscular Hgb Conc 31.8 g/dL (32-36); Mean Corpuscular Volume 89.4 fL (80-100); Mean Platelet Volume 9.9 fL (7.4-10.4); Monocytes # (auto) 1.18 K/uL (0.11-0.59); Neutrophils # (auto) 17.15 K/uL (1.4-6.5); Neutrophils % (auto) 87.9 %; Phosphorus 2.9 mg/dl (2.5-4.9); Platelet Count 387 K/uL (130-400); RDW Coefficient of Variation 14.8 % (11.5-14.5); RDW Standard Deviation 48.9 fL (36.4-46.3); Red Blood Count 3.97 M/uL (4.7-6.1); White Blood Count 19.52 K/uL (4.8-10.8)
[2022-01-04 15:00] LABS: Influenza A virus by PCR Negative (Neg); Influenza B virus by PCR Negative (Neg); RSV by PCR Negative (Neg); SARS CoV2 RNA(COVID-19) InHosp NEGATIVE (Negative)
[2022-01-04] MEDS ORDERED: CEFEPIME 2,000 MG/20 ML VIAL IV STA (15:30)
[2022-01-04] MEDS ORDERED: VANCOMYCIN CONSULT ACTIVE PRN (15:30)
[2022-01-04] MEDS ORDERED: VANCOMYCIN HCL 2,250 MG in SODIUM CHLORIDE 0.9% 500 ML IV ONE (15:30)
--- NOTE | 2022-01-04 15:38 | Electrocardiogram Report ---
Test Reason : Blood Pressure : / mmHG Vent. Rate : 078 BPM Atrial Rate : 078 BPM P-R Int : 182 ms QRS Dur : 134 ms QT Int : 408 ms P-R-T Axes : 048 -22 015 degrees QTc Int : 465 ms Normal sinus rhythm Possible Left atrial enlargement Right bundle branch block Abnormal ECG When compared with ECG of 24-AUG-2021 18:49, QRS axis Shifted right QT has shortened Confirmed by Joselo Downey ([id number]) on 01/04/2022 3:38:45 PM Referred By: REFERRED SELF Confirmed By:Joselo Downey
--- NOTE | 2022-01-04 16:10 | History & Physical Report ---
Date of Service January 04, 2022 Assessment & Plan (1) Diabetic ulcer of left foot associated with diabetes mellitus due to un derlying condition, with fat layer exposed: Plan: Follows with [facility] and Dr. Soto. Presently, he feels it is healing, and he denies new redness or drainage. WBC is elevated, but this could also be a stress response from his episode of hypoglycemia. CRP is lower than most recent tests. - Wound care consulted - Continue home doxycycline and ciprofloxacin - Follow blood cultures drawn today in ER. -> If cleared by field ironworker, WBC downtrends, and no cultures positive, consider early discharge tomorrow. (2) Diabetes mellitus type 1: Plan: With hypoglycemic event. A1c was 8.0% in 11/2021. He typically uses an insulin pump connected to a continuous glucose monitor. He believes his hypoglycemic event was due to the GCM not working, so his insulin pump did not know to slow his basal rate. - Continue home basal rate now that he's alert and eating/drinking - Q4h blood sugars (including overnight) - Glycemic pharmacist and primary special educator both consulted - Did not order a sliding scale as he can program bolus doses in with pharmacy assistance on amount. (3) CAD (coronary artery disease): Plan: With elevated troponin; not due to acute coronary event. No chest pain. - Continue home ASA, Plavix, statin, beta-simi (4) Hypertension: Plan: BP in the ER was 130/60. - Continue above meds and chlorthalidone (5) Hypothyroidism: Plan: TSH was 0.48 in 11/2021. No signs/symptoms of hypo-/hyperthyroidism. - Continue home Synthroid 175 mcg (6) DVT prophylaxis: Plan: SCD and early discharge History of Present Illness Primary Care Provider: Ivelisse Oconnell MD 66yo M w/ hx of DM and right foot ulcers who presents with hypoglycemia. The patient felt well going to bed overnight, but overnight, he experienced hypoglycemia with shaking and feeling unwell. He tried to open some peanut butter, but he reports that he wasn't able to, and felt himself "fade out" b efore he could do anything about it. He feels this was due to his continuous glucose monitor malfunctioning, and his insulin pump not slowing down the rate as it was supposed to. He normally takes 1.6 units/hr of basal insulin. He was found with a blood sugar of 48, and was given dextrose which brought him up > 200. He felt fairly nauseated in the morning, and only ate some toast and had milk and juice for breakfast. He went to the wound clinic and there continued to dry heave, so he was sent to the ER because he "looked bad." During my interview, he actually feels at baseline. He is following with the [facility], and he feels his foot is doing well. He has been overall feeling his health is improving. Allergies Allergy/AdvReac Type Severity Reaction Status Date / Time No Known Allergies Allergy Unknown Verified 01/04/22 14:16 Home Medications Medication Instructions Recorded Confirmed Type clopidogrel 75 mg tablet (Plavix) 75 mg PO QAM #30 tab 01/28/21 01/04/22 Rx metoprolol tartrate 25 mg tablet 12.5 mg PO BID #90 tab 02/09/21 01/04/22 Rx aspirin 81 mg tablet,delayed 81 mg PO QAM 05/04/21 01/04/22 History release (Aspirin Low Dose) pantoprazole 40 mg tablet,delayed 40 mg PO QAM #30 tab 06/15/21 01/04/22 Rx release (Protonix) levothyroxine 175 mcg tablet 175 mcg PO QAM 06/30/21 01/04/22 History (Synthroid) ferrous sulfate 325 mg (65 mg 325 mg PO BID #60 tab 08/03/21 01/04/22 Rx iron) tablet,delayed release folic acid 1 mg tablet 1 mg PO QAM #30 tab 08/03/21 01/04/22 Rx lactobacillus combination no.9 4 4,000 mmu cells PO QAM 08/04/21 01/04/22 History billion cell capsule (Adult 50 Plus Probiotic) Bed Side Commode #1 ea 08/09/21 12/20/21 Rx Commode rails #1 ea 08/10/21 12/20/21 Rx potassium chloride 20 mEq 20 meq PO BID #60 tab 09/20/21 01/04/22 Rx tablet,extended release atorvastatin 80 mg tablet (Lipitor) 80 mg PO HS #90 tab 11/15/21 01/04/22 Rx polyethylene glycol 3350 17 gram 17 g PO DAILY PRN #10 ea 11/30/21 01/04/22 Rx oral powder packet (Miralax) calcitriol 0.25 mcg capsule 0.25 mcg PO QAM #30 cap 12/24/21 01/04/22 Rx (Rocaltrol) chlorthalidone 25 mg tablet 25 mg PO QAM 01/04/22 01/04/22 History docusate sodium 100 mg capsule 100 mg PO QAM 01/04/22 01/04/22 History (Colace) insulin aspart U-100 100 unit/mL 75 unit SUBCUT .PUMP 01/04/22 01/04/22 History subcutaneous solution (Novolog U-100 Insulin aspart) Past Med/Surg History Medical History Aortic stenosis s/p porcine valve replacement (2015) with CABG x 1 CAD (coronary artery disease) s/p CABG x 1 (2015) Cellulitis of foot, left CKD (chronic kidney disease) stage 2, GFR 60-89 ml/min Diabetes mellitus type 1 + Insulin pump Diabetic nephropathy associated with type 1 diabetes mellitus Diabetic ulcer of left foot Dyslipidemia GERD (gastroesophageal reflux disease) History of Clostridium difficile infection History of osteomyelitis Hypertension Hypotension Hypothyroidism Insulin pump in place Osteoarthritis Osteoporosis Proliferative diabetic retinopathy associated with type 1 diabetes mellitus PVD (peripheral vascular disease) s/p B/L iliac artery stents (2014), R common/external iliac (2017), R common femoral endarterectomy (11/2018) with bovine patch. Left femoral to PT composite bypass graft (06/2020) VRE infection (vancomycin resistant enterococcus), with multi-drug resistance hx Surgical History Below-knee amputation of right lower extremity RETURNED HOME FROM [facility] 07/30/21 H/O cataract extraction R/L H/O endarterectomy R common femoral (11/2018) H/O vascular surgery Right Femoral to Posterior tibial Prosthetic Bypass Graft(Right) History of ankle surgery LEFT ANKLE +HARDWARE REMOVED History of aortic valve replacement 2016 ([facility] [place]) History of arterial bypass of lower extremity Left femoral to PT composite bypass graft (06/2020) History of cardiac cath x2, most recent 2016 > no stents (subsequent CABG with AVR in 2016) History of carpal tunnel release R/L History of colonoscopy History of coronary artery bypass graft CABG x1 + AVR (2016) History of esophagogastroduodenoscopy (EGD) History of myringotomy History of open reduction and internal fixation (ORIF) procedure LLE (1970s) History of skin graft Split Thickness Skin Graft of Left Lateral Ankle (11/18/20): LMA#5, atraumatic x1 at [facility] History of tonsillectomy History of tooth extraction History of umbilical hernia repair Hx of surgical procedure Left Leg Wound Debridement and Irrigation S/P femoropopliteal bypass surgery Right fem-pop bypass graft (01/19/21): Grade 2 view, MAC 3.0, ETT 8.0 at [facility] S/P insertion of iliac artery stent B/L iliac stent placement (2014) 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 Family History Brother Family history of diabetes mellitus Sister Family history of diabetes mellitus Mother Family history of diabetes mellitus Grandmother (Maternal) Family history of diabetes mellitus Uncle Family hx of colon cancer Colorectal cancer Father Family history of esophageal cancer Sister Family history of diabetes mellitus Other No family history of adverse response to anesthesia Denies family history of Ovarian cancer Prostate cancer Myocardial infarction Breast cancer Social History Smoking Status: Former smoker Tobacco Type: Cigarettes and Smokeless Tobacco (Dip or Chew) Cigarettes Per Day: Quit 15 years ago; Second Hand Exposure: No; Hx Alcohol Use: No Hx Substance Use: Yes Preferred Language: Telugu Communication Ability: Effective Visual Impairment: Limited Hearing Ability: Hard of Hearing Inspector Aluminum Boat Required: No Beliefs That Will Affect Care: None marital status: Current Living Situation: Other Current Living Situation Comment: lives with roomate in apartment with 3 steps current occupational status: disabled How many Children do You have: 2 How many Children do You have Comment: family assists with care, also is part of the waiver program so the pt's roommate is able to assist with care through this program Feels Safe at Home: Yes Childhood Exposure to Second-Hand Smoke: Yes Diet Comment: Carb Counts. ([id number], roughly), protein drinks caffeine: Yes (coffee, rarely ) during the past year weight has: remained stable Dental Care, Regularly: No Seatbelt Use: always Sunscreen Use: No Gender Identity: Male Assistive Devices: None Review of Systems Review of Systems: All systems reviewed & are unremarkable except as noted in HPI & below Physical Exam Constitutional: WD/WN, vitals as above Eyes: EOM intact bilaterally; no conjunctival abnormality ENMT: external ear and nose normal, oropharynx normal Neck: trachea midline, no thyromegaly normal visual inspection Respiratory: normal respiratory effort, lungs clear to auscultation no respiratory distress Cardiovascular: RRR, no murmur, no edema Gastrointestinal (Abdomen): Inspection/Auscultation: abdomen normal to inspection; abdomen not distended Musculoskeletal: no cyanosis or clubbing, extremities motor strength 5/5 Extremities: + extremities abnormal to inspection (Wound vac on boot) Skin: no rashes, warm and dry Neurologic: moves all extremities and awake Psychiatric: Orientation: alert, oriented to person and cooperative Results & Data Results & Data ([facility]) Vital Signs (Past 12 Hours) Vital Signs Temp Pulse Pulse Resp BP BP Pulse Ox 01/04/22 14:49 110/50 L 01/04/22 14:30 77 22 88/54 L 01/04/22 13:10 36.8 C 69 17 115/47 L 97 01/04/22 11:04 36.6 C 84 16 95 PG Care Time/CCT Total # of Minutes Spent Total Time Spent with Patient: Total time spent is greater than 50% in coordination of care (as documented) at patient's floor/unit and/or counseling patient: Coding Level of Care Code INT OBSERVATION CARE 70M LVL 3 Diagnoses Diabetic ulcer of left foot associated with diabetes mellitus due to underlying condition, with fat layer exposed E08.621; L97.522 Diabetes mellitus type 1 E10.9 CAD (coronary artery disease) I25.10 Coronary Disease-Associated Artery/Lesion type: [place] artery [place] vs. transplanted heart: [place] heart Associated angina: without angina Hypertension I10 Hypertension type: unspecified Hypothyroidism E03.9 Hypothyroidism type: unspecified DVT prophylaxis Z29.9 (1) CAD (coronary artery disease) Coronary Disease-Associated Artery/Lesion type: [place] artery [place] vs. transplanted heart: [place] heart Associated angina: without angina Qualified Code(s): I25.10 - Atherosclerotic heart disease of [place] coronary artery without angina pectoris (2) Hypertension Hypertension type: unspecified Qualified Code(s): I10 - Essential (primary) hypertension (3) Hypothyroidism Hypothyroidism type: unspecified Qualified Code(s): E03.9 - Hypothyroidism, unspecified
--- NOTE | 2022-01-04 18:13 | Emergency Department Note ---
Impression & Plan Leukocytosis, Elevated troponin, Hyperglycemia due to type 1 diabetes mellitus, Nausea and vomiting ED Provider Note NAME: BRANDON MOE Jr AGE: 66 SEX: M ARRIVES VIA: Walk-In INFORMANT: Patient ED PROVIDER(S): Anup Cesar MD CHIEF COMPLAINT: Nausea, hyperglycemia. PLAN: Disposition: Admit MEDICAL DECISION MAKING: The patient is a pleasant 66-year-old gentleman with a past medical history of stage III CKD, type 1 diabetes with history of diabetic foot ulcers, PAD, CAD status post CABG x1 in 2016, hypertension, aortic stenosis status post bioprosthetic valve in 2016, osteoporosis, hypothyroidism who presents to the emergency department referred from the wound center after he developed nausea and dry heaving setting of having episode of hypoglycemia this morning at his SNF at [place] where subsequently he was given oral glucose and upon rechecking his sugar was in the 200s which coincided with his development of nausea.He reports he did not eat breakfast because of this.He reports since arrival emergency department he feels better and back to his baseline. He follows with the wound clinic for management of his wound VAC after having left foot transmetatarsal amputation approximately 6 weeks ago in the setting of having worsening diabetic foot ulcers with green with wound cultures that did grow Pseudomonas and MRSA. The patient had been treated with Zosyn and daptomycin. The patient understands he is currently on oral antibiotics. he reports he did see his orthopedist yesterday and felt his wound was looking well and everything was reassuring. Prior today denies any cough, congestion, fevers, chills, vomiting or diarrhea Of note, the patient reports that he is awaiting arrival of supplies for his pump sensor manage his insulin pump so he feels this is why his sugar became low overnight as there was no real-time adjustment were made by the device overnight. On arrival the patient is chronically ill-appearing but no distress, afebrile stable vital signs. He appears clinically dry. He has no focal neurologic deficits. Left lower leg wound VAC in place without erythema warmth or tenderness. He has mild redness to the site of a prior placement of his insulin pump. Overt acute ischemia. Chest x-ray with question of asymmetric right basilar opacities. WBC 19.5K with neutrophil predominance, increased from recent values. H/H 11.3/35.5 improved from prior. Platelets within normal limits. Chemistry without metabolic acidosis. Lactic acid 1.5, within normal limits. Elec trolytes and LFTs without significant abnormality. Initial high-sensitivity troponin elevated at 52.1, nonspecific delta 2.5-hour level decreased to 47.8. Procalcitonin was mildly elevated at 0.61. Covid-19 PCR negative. Influenza and RSV PCR negative. Findings were reviewed with the patient at the bedside. Given the patient's complex tach she was history with now rising leukocytosis he ultimately did agree with plan for admission for further management and empiric IV antibiotics. At this time the patient source is unclear as his recent outpatient evaluation for his left lower extremity was reassuring. Additionally he reports he has appreciated improvement in this. Chest x-ray was possibly consistent with pneumonia however the patient denies any respiratory symptoms. Blood cultures were drawn. The patient was ordered for empiric cefepime and vancomycin. Of note, given the patient's history of CKD and vital signs that remained stable, no indication for 30 cc/kg IVF resuscitation at this time. Case was d/w ANN MARIE Troncoso hospitalist who will evaluate the patient for admission. Triage Nursing notes reviewed and agree them. Prior medical records reviewed Vital Signs: reviewed and remarkable for no significant abnormalities. Differential diagnosis: Gastroenteritis, food borne illness, infections, appendicitis, diverticulitis, inflammatory bowel disease, obstruction, GI bleed, biliary pathology, volvulus, as well as other pathologies. ER treatment provided: See below. Diagnostics interpreted by me: ECG: Normal sinus rhythm, 78 bpm, no ectopy, right bundle branch block, no overt ST elevation or depression, QTC 465, QRS 134 Cardiac Monitoring: An order for continuous cardiac monitoring was placed and demonstrated Normal sinus rhythm, 78 bpm, no ectopy. Laboratory studies: See below Imaging studies: See below Consultation(s): Case was d/w ANN MARIE Troncoso hospitalist who will evaluate the patient for admission. HPI: The patient is a pleasant 66-year-old gentleman with a past medical history of stage III CKD, type 1 diabetes with history of diabetic foot ulcers, PAD, CAD status post CABG x1 in 2016, hypertension, aortic stenosis status post bioprosthetic valve in 2016, osteoporosis, hypothyroidism who presents to the emergency department referred from the [facility] after he developed nausea and dry heaving setting of having episode of hypoglycemia this morning at his SNF at [place] where subsequently he was given oral glucose and upon rechecking his sugar was in the 200s which coincided with his development of nausea.He reports he did not eat breakfast because of this.He reports since arrival emergency department he feels better and back to his baseline. He fo llows with the wound clinic for management of his wound VAC after having left foot transmetatarsal amputation approximately 6 weeks ago in the setting of having worsening diabetic foot ulcers with green with wound cultures that did grow Pseudomonas and MRSA. The patient had been treated with Zosyn and daptomycin. The patient understands he is currently on oral antibiotics. he reports he did see his orthopedist yesterday and felt his wound was looking well and everything was reassuring. Prior today denies any cough, congestion, fevers, chills, vomiting or diarrhea Of note, the patient reports that he is awaiting arrival of supplies for his pump sensor manage his insulin pump so he feels this is why his sugar became low overnight as there was no real-time adjustment were made by the device overnight. ROS: See above HPI for pertinent positives & negatives. A total of 10 systems reviewed and were otherwise negative. VITALS:See Below PHYSICAL EXAMINATION: GENERAL: Awake, alert, chronically -appearing, in no distress HENT: Normocephalic, atraumatic. Oropharynx with dry mucous membranes and othe rwise unremarkable. EYES: Normal conjunctiva. Sclera non-icteric. NECK: Supple. No nuchal rigidity. FROM. No JVD. RESPIRATORY: Clear to auscultation. CARDIAC: Regular rate, normal rhythm. Extremities warm and well perfused. Pulses equal. ABDOMEN: Soft, non-distended. No tenderness to palpation. No rebound or guarding. No masses. Mild redness to the site of a prior placement of his insulin pump. RECTAL: Deferred. MUSCULOSKELETAL: Chest examination reveals no tenderness. The back is symmetrical on inspection without obvious abnormality. There is no CVA tenderness to palpation. No joint edema. LOWER EXTREMITIES: Left lower leg wound VAC in place without erythema warmth or tenderness. NEURO: Normal sensorium. No sensory or motor deficits noted. SKIN: No rash or jaundice noted. ED COURSE: Critical Care: I have personally spent greater than 35 minutes of critical care time in the direct management of this patient. This includes bedside care, interpretation of diagnostic studies, and testing, discussion with consultants, patient, and family members, and other required patient management activities. This 35 minutes is in excess of all separately billable procedures. Anup Cesar MD Past Med/Surg History Medical History Aortic stenosis s/p porcine valve replacement (2016) with CABG x 1 CAD (coronary artery disease) s/p CABG x 1 (2016) Cellulitis of foot, left CKD (chronic kidney disease) stage 2, GFR 60-89 ml/min Diabetes mellitus type 1 + Insulin pump Diabetic nephropathy associated with type 1 diabetes mellitus Diabetic ulcer of left foot Dyslipidemia GERD (gastroesophageal reflux disease) History of Clostridium difficile infection History of osteomyelitis Hypertension Hypotension Hypothyroidism Insulin pump in place Osteoarthritis Osteoporosis Proliferative diabetic retinopathy associated with type 1 diabetes mellitus PVD (peripheral vascular disease) s/p B/L iliac artery stents (2014), R common/external iliac (2017), R common femoral endarterectomy (11/2018) with bovine patch. Left femoral to PT c omposite bypass graft (06/2020) VRE infection (vancomycin resistant enterococcus), with multi-drug resistance hx Surgical History Below-knee amputation of right lower extremity RETURNED HOME FROM [facility] 07/30/21 H/O cataract extraction R/L H/O endarterectomy R common femoral (11/2018) H/O vascular surgery Right Femoral to Posterior tibial Prosthetic Bypass Graft(Right) History of ankle surgery LEFT ANKLE +HARDWARE REMOVED History of aortic valve replacement 2016 ([facility] [place]) History of arterial bypass of lower extremity Left femoral to PT composite bypass graft (06/2020) History of cardiac cath x2, most recent 2016 > no stents (subsequent CABG with AVR in 2016) History of carpal tunnel release R/L History of colonoscopy History of coronary artery bypass graft CABG x1 + AVR (2016) History of esophagogastroduodenoscopy (EGD) History of myringotomy History of open reduction and internal fixation (ORIF) procedure LLE () History of skin graft Split Thickness Skin Graft of Left Lateral Ankle (11/18/20): LMA#5, atraumatic x1 at [facility] History of tonsillectomy History of tooth extraction History of umbilical hernia repair Hx of surgical procedure Left Leg Wound Debridement and Irrigation S/P femoropopliteal bypass surgery Right fem-pop bypass graft (01/19/21): Grade 2 view, MAC 3.0, ETT 8.0 at [facility] S/P insertion of iliac artery stent B/L iliac stent placement (2014) 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 Family History Brother Family history of diabetes mellitus Sister Family history of diabetes mellitus Mother Family history of diabetes mellitus Grandmother (Maternal) Family history of diabetes mellitus Uncle Family hx of colon cancer Colorectal cancer Father Family history of esophageal cancer Sister Family history of diabetes mellitus Other No family history of adverse response to anesthesia Denies family history of Ovarian cancer Prostate cancer Myocardial infarction Breast cancer Social History Smoking Status: Former smoker Tobacco Type: Cigarettes and Smokeless Tobacco (Dip or Chew) Cigarettes Per Day: Quit 15 years ago; Second Hand Exposure: No; Hx Alcohol Use: No Hx Substance Use: Yes Preferred Language: Polish Communication Ability: Effective Visual Impairment: Limited Hearing Ability: Hard of Hearing Motion Picture Projectionist Required: No Beliefs That Will Affect Care: None marital status: Current Living Situation: Other Current Living Situation Comment: lives with roomate in apartment with 3 steps current occupational status: disabled How many Children do You have: 2 How many Children do You have Comment: family assists with care, also is part of the waiver program so the pt's roommate is able to assist with care through this program Feels Safe at Home: Yes Childhood Exposure to Second-Hand Smoke: Yes Diet Comment: Carb Counts. ([id number], roughly), protein drinks caffeine: Yes (coffee, rarely ) during the past year weight has: remained stable Dental Care, Regularly: No Seatbelt Use: always Sunscreen Use: No Gender Identity: Male Assistive Devices: None Allergies Allergies Allergy/AdvReac Type Severity Reaction Status Date / Time No Known Allergies Allergy Unknown Verified 01/04/22 14:16 Home Meds Home Medications Medication Instructions Recorded Confirmed aspirin 81 mg tablet,delayed 81 mg PO QAM 05/04/21 01/04/22 release (Aspirin Low Dose) levothyroxine 175 mcg tablet 175 mcg PO QAM 06/30/21 01/04/22 (Synthroid) lactobacillus combination no.9 4 4,000 mmu cells PO QAM 08/04/21 01/04/22 billion cell capsule (Adult 50 Plus Probiotic) chlorthalidone 25 mg tablet 25 mg PO QAM 01/04/22 01/04/22 docusate sodium 100 mg capsule 100 mg PO QAM 01/04/22 01/04/22 (Colace) insulin aspart U-100 100 unit/mL 75 unit SUBCUT .PUMP 01/04/22 01/04/22 subcutaneous solution (Novolog U-100 Insulin aspart) Previous Rx's Medication Instructions Recorded clopidogrel 75 mg tablet (Plavix) 75 mg PO QAM #30 tab 01/28/21 metoprolol tartrate 25 mg tablet 12.5 mg PO BID #90 tab 02/09/21 pantoprazole 40 mg tablet,delayed 40 mg PO QAM #30 tab 06/15/21 release (Protonix) ferrous sulfate 325 mg (65 mg 325 mg PO BID #60 tab 08/03/21 iron) tablet,delayed release folic acid 1 mg tablet 1 mg PO QAM #30 tab 08/03/21 Bed Side Commode #1 ea 08/09/21 Commode rails #1 ea 08/10/21 potassium chloride 20 mEq 20 meq PO BID #60 tab 09/20/21 tablet,extended release atorvastatin 80 mg tablet (Lipitor) 80 mg PO HS #90 tab 11/15/21 polyethylene glycol 3350 17 gram 17 g PO DAILY PRN #10 ea 11/30/21 oral powder packet (Miralax) calcitriol 0.25 mcg capsule 0.25 mcg PO QAM #30 cap 12/24/21 (Rocaltrol) Results & Data (ED) Vital Signs Vital Signs - 24 hr 01/04/22 11:04 01/04/22 13:10 01/04/22 13:32 Temperature 36.6 C 36.8 C Temperature Source Temporal Artery Scan Oral Pulse Rate 84 Pulse Rate [Apical] 69 Pulse Rate from SpO2 Sensor Respiratory Rate 16 17 Respiratory Effort / Characteristics Non-Labored Respiratory Depth Normal Blood Pressure Blood Pressure [Right Arm] 115/47 L Blood Pressure Mean Blood Pressure Mean [Right Arm] 69 Pulse Oximetry 95 97 Oxygen Delivery Method Room Air Room Air Room Air Sepsis Recent Fever Within 48 Hours No Sepsis New/Unexplained Change in Mental Status No Sepsis Action Taken by Nursing No Action Required 01/04/22 14:30 01/04/22 14:44 01/04/22 14:49 Temperature Temperature Source Pulse Rate 77 76 75 Pulse Rate [Apical] Pulse Rate from SpO2 Sensor 73 Respiratory Rate 22 17 23 Respiratory Effort / Characteristics Respiratory Depth Blood Pressure 88/54 L 88/54 L 110/50 L Blood Pressure [Right Arm] 110/50 L Blood Pressure Mean 65 65 70 Blood Pressure Mean [Right Arm] 70 Pulse Oximetry 97 Oxygen Delivery Method Sepsis Recent Fever Within 48 Hours Sepsis New/Unexplained Change in Mental Status Sepsis Action Taken by Nursing 01/04/22 15:00 01/04/22 15:30 01/04/22 16:00 Temperature 36.7 C Temperature Source Oral Pulse Rate 75 75 74 Pulse Rate [Apical] 72 Pulse Rate from SpO2 Sensor 74 75 73 Respiratory Rate 22 20 19 Respiratory Effort / Characteristics Respiratory Depth Blood Pressure 117/60 120/56 L Blood Pressure [Right Arm] 120/56 L Blood Pressure Mean 79 77 Blood Pressure Mean [Right Arm] 77 Pulse Oximetry 96 99 98 Oxygen Delivery Method Sepsis Recent Fever Within 48 Hours Sepsis New/Unexplained Change in Mental Status Sepsis Action Taken by Nursing 01/04/22 16:30 01/04/22 17:00 01/04/22 17:01 Temperature Temperature Source Pulse Rate 71 72 74 Pulse Rate [Apical] Pulse Rate from SpO2 Sensor 71 Respiratory Rate 18 17 19 Respiratory Effort / Characteristics Respiratory Depth Blood Pressure 120/47 L Blood Pressure [Right Arm] Blood Pressure Mean 71 Blood Pressure Mean [Right Arm] Pulse Oximetry 97 Oxygen Delivery Method Sepsis Recent Fever Within 48 Hours Sepsis New/Unexplained Change in Mental Status Sepsis Action Taken by Nursing 01/04/22 17:30 01/04/22 18:00 01/04/22 18:30 Temperature Temperature Source Pulse Rate 70 71 71 Pulse Rate [Apical] Pulse Rate from SpO2 Sensor 70 70 70 Respiratory Rate 15 14 16 Respiratory Effort / Characteristics Respiratory Depth Blood Pressure 130/58 L Blood Pressure [Right Arm] Blood Pressure Mean 82 Blood Pressure Mean [Right Arm] Pulse Oximetry 98 99 99 Oxygen Delivery Method Sepsis Recent Fever Within 48 Hours Sepsis New/Unexplained Change in Mental Status Sepsis Action Taken by Nursing Laboratory Data Result diagrams: 01/04/22 13:16 01/04/22 13:16 Lab Results 01/04/22 01/04/22 01/04/22 Range/Units 11:14 13:16 13:16 WBC 19.52 H (4.8-10.8) K/uL RBC 3.97 L (4.7-6.1) M/uL Hgb 11.3 L (14.0-18.0) g/dL Hct 35.5 L (42-52) % MCV 89.4 (80-100) fL MCH 28.5 (25-34) pg MCHC 31.8 L (32-36) g/dL RDW Std Deviation 48.9 H (36.4-46.3) fL RDW Coeff of Chan 14.8 H (11.5-14.5) % Plt Count 387 (130-400) K/uL MPV 9.9 (7.4-10.4) fL Immature Gran % (Auto) 0.3 % Neut % (Auto) 87.9 % Lymph % (Auto) 5.6 % Coffee % (Auto) 6.0 % Eos % (Auto) 0.1 % Baso % (Auto) 0.1 % Neut # (Auto) 17.15 H (1.4-6.5) K/uL Lymph # (Auto) 1.10 L (1.2-3.4) K/uL Coffee # (Auto) 1.18 H (0.11-0.59) K/uL Eos # (Auto) 0.01 (0-0.5) K/uL Baso # (Auto) 0.02 (0-0.2) K/uL Immature Gran # (Auto) 0.06 H (0.00-0.02) K/uL Sodium (136-145) mmol/L Potassium (3.5-5.1) mmol/L Chloride (98-107) mmol/L Carbon Dioxide (21-32) mmol/L Anion Gap (3-11) BUN (6-23) mg/dl Creatinine (0.6-1.4) mg/dl Est Cr Clr Drug Dosing ml/min Est GFR ( Amer) ml/min Est GFR (Non-Af Amer) ml/min BUN/Creatinine Ratio (10-20) Glucose (70-99(Fasting)) mg/dl POC Glucose 204 H (70-99) mg/dl Lactate (0.4-2.0) mmol/L Calcium (8.5-10.1) mg/dl Phosphorus (2.5-4.9) mg/dl Magnesium (1.7-2.4) mg/dl Total Bilirubin (0.2-1.0) mg/dl AST (13-39) U/L ALT (7-52) U/L Alkaline Phosphatase (34-104) U/L Troponin I High Sens 52.1 H* (0-20) pg/ml C-Reactive Protein (0-0.5) mg/dl Total Protein (6.0-8.3) gm/dl Albumin (3.4-5.0) gm/dl Globulin (2.5-4.0) gm/dl Albumin/Globulin Ratio (0.9-2) Lipase (11-82) U/L Procalcitonin (0-0.5) ng/ml SARS-CoV-2 (PCR) (Negative) Influenza Type A (PCR) (Neg) Influenza Type B (PCR) (Neg) RSV (RT-PCR) (Neg) 01/04/22 01/04/22 01/04/22 Range/Units 13:16 13:36 15:57 WBC (4.8-10.8) K/uL RBC (4.7-6.1) M/uL Hgb (14.0-18.0) g/dL Hct (42-52) % MCV (80-100) fL MCH (25-34) pg MCHC (32-36) g/dL RDW Std Deviation (36.4-46.3) fL RDW Coeff of Chan (11.5-14.5) % Plt Count (130-400) K/uL MPV (7.4-10.4) fL Immature Gran % (Auto) % Neut % (Auto) % Lymph % (Auto) % Coffee % (Auto) % Eos % (Auto) % Baso % (Auto) % Neut # (Auto) (1.4-6.5) K/uL Lymph # (Auto) (1.2-3.4) K/uL Coffee # (Auto) (0.11-0.59) K/uL Eos # (Auto) (0-0.5) K/uL Baso # (Auto) (0-0.2) K/uL Immature Gran # (Auto) (0.00-0.02) K/uL Sodium 139 (136-145) mmol/L Potassium 4.2 (3.5-5.1) mmol/L Chloride 104 (98-107) mmol/L Carbon Dioxide 27 (21-32) mmol/L Anion Gap 8 (3-11) BUN 28 H (6-23) mg/dl Creatinine 0.70 (0.6-1.4) mg/dl Est Cr Clr Drug Dosing 114.5 ml/min Est GFR ( Amer) 115.6 ml/min Est GFR (Non-Af Amer) 99.7 ml/min BUN/Creatinine Ratio 40.0 H (10-20) Glucose 208 H (70-99(Fasting)) mg/dl POC Glucose (70-99) mg/dl Lactate (0.4-2.0) mmol/L Calcium 9.2 (8.5-10.1) mg/dl Phosphorus 2.9 (2.5-4.9) mg/dl Magnesium 1.7 (1.7-2.4) mg/dl Total Bilirubin 0.4 (0.2-1.0) mg/dl AST 22 (13-39) U/L ALT 20 (7-52) U/L Alkaline Phosphatase 112 H (34-104) U/L Troponin I High Sens 47.8 H (0-20) pg/ml C-Reactive Protein (0-0.5) mg/dl Total Protein 7.0 (6.0-8.3) gm/dl Albumin 3.4 (3.4-5.0) gm/dl Globulin 3.6 (2.5-4.0) gm/dl Albumin/Globulin Ratio 0.9 (0.9-2) Lipase 11 (11-82) U/L Procalcitonin (0-0.5) ng/ml SARS-CoV-2 (PCR) NEGATIVE (Negative) Influenza Type A (PCR) Negative (Neg) Influenza Type B (PCR) Negative (Neg) RSV (RT-PCR) Negative (Neg) 01/04/22 01/04/22 01/04/22 Range/Units 15:57 15:57 15:57 WBC (4.8-10.8) K/uL RBC (4.7-6.1) M/uL Hgb (14.0-18.0) g/dL Hct (42-52) % MCV (80-100) fL MCH (25-34) pg MCHC (32-36) g/dL RDW Std Deviation (36.4-46.3) fL RDW Coeff of Chan (11.5-14.5) % Plt Count (130-400) K/uL MPV (7.4-10.4) fL Immature Gran % (Auto) % Neut % (Auto) % Lymph % (Auto) % Coffee % (Auto) % Eos % (Auto) % Baso % (Auto) % Neut # (Auto) (1.4-6.5) K/uL Lymph # (Auto) (1.2-3.4) K/uL Coffee # (Auto) (0.11-0.59) K/uL Eos # (Auto) (0-0.5) K/uL Baso # (Auto) (0-0.2) K/uL Immature Gran # (Auto) (0.00-0.02) K/uL Sodium (136-145) mmol/L Potassium (3.5-5.1) mmol/L Chloride (98-107) mmol/L Carbon Dioxide (21-32) mmol/L Anion Gap (3-11) BUN (6-23) mg/dl Creatinine (0.6-1.4) mg/dl Est Cr Clr Drug Dosing ml/min Est GFR ( Amer) ml/min Est GFR (Non-Af Amer) ml/min BUN/Creatinine Ratio (10-20) Glucose (70-99(Fasting)) mg/dl POC Glucose (70-99) mg/dl Lactate 1.5 (0.4-2.0) mmol/L Calcium (8.5-10.1) mg/dl Phosphorus (2.5-4.9) mg/dl Magnesium (1.7-2.4) mg/dl Total Bilirubin (0.2-1.0) mg/dl AST (13-39) U/L ALT (7-52) U/L Alkaline Phosphatase (34-104) U/L Troponin I High Sens (0-20) pg/ml C-Reactive Protein 2.48 H (0-0.5) mg/dl Total Protein (6.0-8.3) gm/dl Albumin (3.4-5.0) gm/dl Globulin (2.5-4.0) gm/dl Albumin/Globulin Ratio (0.9-2) Lipase (11-82) U/L Procalcitonin 0.61 H (0-0.5) ng/ml SARS-CoV-2 (PCR) (Negative) Influenza Type A (PCR) (Neg) Influenza Type B (PCR) (Neg) RSV (RT-PCR) (Neg) Administered Medications Discontinued Medications Famotidine (Pepcid 20mg Iv Push) 20 mg in 5 mls @ 2.5 mls/min IV NOW STA Stop: 01/04/22 12:33 Last Admin: 01/04/22 13:32 Dose: 2.5 mls/min Documented by: [id number] Sodium Chloride (Nss) 500 mls @ 999 mls/hr IV .Q31M ONE Stop: 01/04/22 13:28 Last Infusion: 01/04/22 14:52 Dose: 0 mls/hr Documented by: [id number] Admin: 01/04/22 13:32 Dose: 999 mls/hr Documented by: [id number] Cefepime HCl (Maxipime) 2,000 mg in 20 mls @ 5 mls/min IV NOW STA; Protocol Stop: 01/04/22 15:33 Last Admin: 01/04/22 16:05 Dose: 5 mls/min Documented by: [id number] Vancomycin HCl 2,250 mg/ (Sodium Chloride) 545 mls @ 200 mls/hr IV NOW ONE Stop: 01/04/22 18:13 Last Infusion: 01/04/22 19:37 Dose: 0 mls/hr Documented by: [id number] Admin: 01/04/22 16:06 Dose: 200 mls/hr Documented by: [id number] Sodium Chloride (Nss) 500 mls @ 999 mls/hr IV .Q31M ONE Stop: 01/04/22 16:00 Last Infusion: 01/04/22 18:45 Dose: 0 mls/hr Documented by: [id number] Admin: 01/04/22 16:05 Dose: 999 mls/hr Documented by: [id number] Imaging Data Radiologist's Impression: Chest X-Ray 01/04/22 12:29 SINGLE VIEW CHEST CLINICAL HISTORY: Atypical chest pain. FINDINGS: An AP, portable, upright chest radiograph is compared to study dated 11/18/2021. The patient is status post midline sternotomy. The cardiomediastinal silhouette is unremarkable noting atherosclerotic calcification of the thoracic aorta. There is chronic elevation of the right hemidiaphragm. There are asymmetric airspace opacities at the right lung base. No large pleural effusion or pneumothorax is seen. The skeletal structures are osteopenic. The bony thorax is grossly intact. IMPRESSION: Asymmetric airspace opacities at the right lung base likely represent atelectasis. Clinical correlation will be required and follow-up to resolution is recommended. ACT 112: Negative or not required by law. Electronically signed by: Tae Pizarro M.D. 01/04/2022 1:20 PM Discharge Plan Visit Data Chief Complaint: Hypoglycemia Stated Complaint: BLOOD SUGAR LOW ED Provider: Anup Cesar Discharge Problem: Leukocytosis, Elevated troponin, Hyperglycemia due to type 1 diabetes mellitus, Nausea and vomiting Forms Stand Alone Forms: [facility] Prescriptions Prescriptions: No Action clopidogrel [Plavix] 75 mg tablet 75 mg PO QAM Qty: 30 RF: 5 metoprolol tartrate 25 mg tablet 12.5 mg PO BID Qty: 90 RF: 3 pantoprazole [Protonix] 40 mg tablet,delayed release (DR/EC) 40 mg PO QAM Qty: 30 RF: 5 ferrous sulfate 325 mg (65 mg iron) tablet,delayed release (DR/EC) 325 mg PO BID Qty: 60 RF: 5 folic acid 1 mg tablet 1 mg PO QAM Qty: 30 RF: 5 (DME) Bed Side Commode Misc See Rx Instructions .Route Qty: 1 RF: 0 (DME) Commode rails round See Rx Instructions .Route .MEDSUPPLY Qty: 1 RF: 0 potassium chloride 20 mEq tablet extended release 20 meq PO BID Qty: 60 RF: 5 atorvastatin [Lipitor] 80 mg tablet 80 mg PO HS Qty: 90 RF: 3 calcitriol [Rocaltrol] 0.25 mcg capsule 0.25 mcg PO QAM Qty: 30 RF: 5 Adult 50 Plus Probiotic 4 billion cell capsule 4,000 mmu cells PO QAM RF: 0 levothyroxine [Synthroid] 175 mcg tablet 175 mcg PO QAM RF: 0 polyethylene glycol 3350 [Miralax] 17 gram Powder In Packet 17 g PO DAILY PRN (Reason: constipation) Qty: 10 RF: 0 aspirin [Aspirin Low Dose] 81 mg tablet,delayed release (DR/EC) 81 mg PO QAM RF: 0 chlorthalidone 25 mg tablet 25 mg PO QAM RF: 0 insulin aspart U-100 [Novolog U-100 Insulin aspart] 100 unit/mL solution 75 unit subcut .PUMP RF: 0 docusate sodium [Colace] 100 mg Capsule 100 mg PO QAM RF: 0 Referrals Referrals: Ivelisse Oconnell MD [Primary Care Provider] - Discharge Problem: Leukocytosis Qualifiers: Leukocytosis type: unspecified Qualified Code(s): D72.829 - Elevated white blood cell count, unspecified Nausea and vomiting Qualifiers: Vomiting type: unspecified Qualified Code(s): R11.2 - Nausea with vomiting, unspecified
[2022-01-04] MEDS ORDERED: DEXTROSE 50% 50 ML SYRINGE IV PRN (20:53)
[2022-01-04] MEDS ORDERED: GLUCOSE 10 TABS/TUBE PO PRN (20:53)
[2022-01-04] MEDS ORDERED: ACETAMINOPHEN 325 MG TAB PO PRN (20:53)
[2022-01-04] MEDS ORDERED: GLUCOSE 40% GEL 15 GM TUBE PO PRN (20:53)
[2022-01-04] MEDS ORDERED: ONDANSETRON INJ 2 MG/ML 2 ML VIAL IV PRN (20:53)
[2022-01-04] MEDS ORDERED: CARBOHYDRATES FOR HYPOGLYCEMIA PO PRN (20:53)
[2022-01-04] MEDS ORDERED: GLUCAGON FOR INJ 1 MG VIAL SQ PRN (20:53)
[2022-01-04] MEDS ORDERED: PHARMACY GLYCEMIC MGMT CONSULT PRN (20:53)
[2022-01-04] MEDS ORDERED: POLYETHYLENE (MIRALAX) 17 GM PACK PO PRN (20:53)
[2022-01-04] MEDS ORDERED: ATORVASTATIN 40 MG TAB PO SCH (21:00)
[2022-01-04] MEDS: POTASSIUM CHLORIDE CRTAB 20 MEQ TABCR PO SCH (22:55)
[2022-01-04] MEDS: METOPROLOL TARTRATE 25 MG TAB PO SCH (22:56)
[2022-01-04] MEDS: CIPROFLOXACIN 500 MG TAB PO SCH (22:56)
[2022-01-04] MEDS: DOXYCYCLINE HYCLATE 100 MG CAP PO SCH (22:56)
[2022-01-05] MEDS: INSULIN ASPART PER UNIT SC SCH ×4 (00:14→12:37)
[2022-01-05] MEDS ORDERED: LEVOTHYROXINE SODIUM 175 MCG TABLET PO SCH (06:30)
[2022-01-05 07:30] LABS: BUN Creatinine Ratio 26.2 (10-20); Calcium 8.2 mg/dl (8.5-10.1); Creatinine Clr Calc Pharmacy 120.1 ml/min; Est GFR (African American) 119.2 ml/min; Est GFR (Non-African American) 102.8 ml/min; Magnesium 1.6 mg/dl (1.7-2.4); Potassium 4.2 mmol/L (3.5-5.1)
[2022-01-05 08:30] LABS: Estimated Average Glucose 146 mg/dl; Hemoglobin A1C 6.7 % (4.5-5.6)
[2022-01-05 08:37] LABS: Hemoglobin 10.1 g/dL (14.0-18.0); Mean Corpuscular Hemoglobin 28.2 pg (25-34); Mean Corpuscular Hgb Conc 31.6 g/dL (32-36); Mean Corpuscular Volume 89.4 fL (80-100); Platelet Count 330 K/uL (130-400); RDW Coefficient of Variation 15.1 % (11.5-14.5); RDW Standard Deviation 49.7 fL (36.4-46.3); Red Blood Count 3.58 M/uL (4.7-6.1); White Blood Count 8.28 K/uL (4.8-10.8)
[2022-01-05] MEDS ORDERED: ASPIRIN 81 MG ECTAB PO SCH (09:00)
[2022-01-05] MEDS ORDERED: PANTOprazole 40 MG TAB PO SCH (09:00)
[2022-01-05] MEDS ORDERED: DOCUSATE SODIUM 100 MG CAP PO SCH (09:00)
[2022-01-05] MEDS ORDERED: INSULIN GLARGINE SOLOSTAR 100 UNITS/ML 3 ML PEN SC ONE (09:00)
[2022-01-05] MEDS ORDERED: FOLIC ACID 1 MG TAB PO SCH (09:00)
[2022-01-05] MEDS ORDERED: CLOPIDOGREL BISULFATE 75 MG TAB PO SCH (09:00)
[2022-01-05] MEDS ORDERED: CALCITRIOL 0.25 MCG CAPSULE PO SCH (09:00)
[2022-01-05] MEDS ORDERED: CHLORTHALIDONE 25 MG TAB PO SCH (09:00)
[2022-01-05] MEDS: CIPROFLOXACIN 500 MG TAB PO SCH (09:07)
[2022-01-05] MEDS: POTASSIUM CHLORIDE CRTAB 20 MEQ TABCR PO SCH (09:07)
[2022-01-05] MEDS: DOXYCYCLINE HYCLATE 100 MG CAP PO SCH (09:07)
[2022-01-05] MEDS: METOPROLOL TARTRATE 25 MG TAB PO SCH (09:08)
[2022-01-05] MEDS ORDERED: MAGNESIUM OXIDE 400 MG TAB PO ONE (12:15)
== END 2022-01-05 15:34 ==
LOC: ED 10:46 → 3E 10:46 → SUATTDRO 16:47 → 3E 20:19

== ENCOUNTER 2022-06-30 05:52 | Inpatient (IN) ==
--- NOTE | 2022-06-23 13:46 | Anesthesiology Consultation ---
Date of Service June 23, 2022 Assessment & Plan (1) Encounter for pre-operative examination: Chart Review Chart Review: Acceptable Risk for Surgery History Surgery Operation Date: 06/29/22 07:30 Proposed Procedures p Amputation Jona - Xander Soto MD Height/Weight Height: 5 ft 8 in Weight: 79.832 kg Allergies Allergy/AdvReac Type Severity Reaction Status Date / Time No Known Allergies Allergy Unknown Verified 06/23/22 11:43 Medications Home Medications Medication Instructions Recorded Confirmed Last Taken clopidogrel 75 mg tablet (Plavix) 75 mg PO QAM #30 tabs 01/28/21 06/23/22 06/22/22 aspirin 81 mg tablet,delayed 81 mg PO QAM 05/04/21 06/23/22 06/14/22 08:00 release (Mohit Low Dose Aspirin) levothyroxine 175 mcg tablet 175 mcg PO QAM 06/30/21 06/23/22 06/14/22 04:00 (Synthroid) ferrous sulfate 325 mg (65 mg 325 mg PO BID #60 tabs 08/03/21 06/23/22 06/14/22 08:00 iron) tablet,delayed release lactobacillus combination no.9 4 4,000 mmu cells PO QAM 08/04/21 06/23/22 06/14/22 08:00 billion cell capsule (Adult 50 Plus Probiotic) Bed Side Commode #1 ea 08/09/21 06/10/22 Unknown Commode rails #1 ea 08/10/21 06/10/22 Unknown potassium chloride 20 mEq 20 meq PO BID #60 tabs 09/20/21 06/23/22 06/14/22 21:00 tablet,extended release atorvastatin 80 mg tablet (Lipitor) 80 mg PO HS #90 tabs 11/15/21 06/23/22 06/14/22 21:00 docusate sodium 100 mg capsule 100 mg PO UD PRN Constipation 01/04/22 06/23/22 1 Month Ago (Colace) ~05/16/22 calcitriol 0.25 mcg capsule 0.25 mcg PO QAM #30 caps 03/31/22 06/23/22 06/14/22 08:00 (Rocaltrol) metoprolol tartrate 25 mg tablet 12.5 mg PO BID #90 tabs 04/17/22 06/23/22 06/15/22 04:00 insulin aspart U-100 100 unit/mL 75 unit subcut DAILY 05/09/22 06/23/22 06/15/22 subcutaneous solution (Novolog 1.4 unit basal U-100 Insulin aspart) chlorthalidone 25 mg tablet 25 mg PO QAM #90 tabs 05/20/22 06/23/22 06/14/22 08:00 nystatin 100,000 unit/gram topical 1 applic topical BID #60 grams 05/27/22 06/23/22 06/13/22 powder pantoprazole 40 mg tablet,delayed 40 mg PO UD PRN Acid Reflux 06/08/22 06/23/22 06/15/22 04:00 release (Protonix) cephalexin 500 mg capsule 500 mg PO TID 06/23/22 06/23/22 06/23/22 folic acid 1 mg tablet 1 mg PO QAM #30 tabs 06/23/22 Unknown Past Medical History Medical History Aortic stenosis s/p porcine valve replacement (2015) + CABG x1 [place] [facility] CAD (coronary artery disease) s/p CABG x 1 (2015) CKD (chronic kidney disease), stage III Constipation Diabetes mellitus type 1 + Insulin pump Diabetic nephropathy associated with type 1 diabetes mellitus Diabetic ulcer of left foot [place] [facility] [place]. Last visit 06/07/22- left diabetic foot ulcer "Wounds are stable deteriorated. No debridement performed." PT REPORTS LAST VISIT A FEW WEEKS AGO...NEED FOR SX Dyslipidemia GERD (gastroesophageal reflux disease) History of Clostridium difficile infection s/p treatment (2020) History of colon polyps ALL NEGATIVE PER PT 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) History of osteomyelitis left foot Hx MRSA infection 01/2022 (left heel) Hx of renal calculi Hypertension Hypothyroidism Infection LLE - REASON FOR UPCOMING SX/CURRENT ABX TX FOR Insulin pump in place Osteoarthritis Osteoporosis Proliferative diabetic retinopathy associated with type 1 diabetes mellitus PVD (peripheral vascular disease) s/p B/L iliac artery stents (2014), R common/external iliac (2017), R common femoral endarterectomy (11/2018) with bovine patch. Left femoral to PT composite bypass graft (06/2020) Past Family History Family History Brother Family history of diabetes mellitus Sister Family history of diabetes mellitus Mother Family history of diabetes mellitus Grandmother (Maternal) Family history of diabetes mellitus Uncle Family hx of colon cancer Colorectal cancer Father Family history of esophageal cancer Sister Family history of diabetes mellitus Other No family history of adverse response to anesthesia Denies family history of Ovarian cancer Prostate cancer Myocardial infarction Breast cancer Past Surgical History Surgical History Below-knee amputation of right lower extremity H/O cataract extraction R/L H/O endarterectomy R common femoral (11/2018) H/O vascular surgery Right Femoral to Posterior tibial Prosthetic Bypass Graft(Right) History of ankle surgery LEFT ANKLE +HARDWARE REMOVED History of aortic valve replacement 2015 ([facility] [place]) History of arterial bypass of lower extremity Left femoral to PT composite bypass graft (06/2020) History of cardiac cath x2, most recent 2016 > no stents (subsequent CABG with AVR in 2015); [facility] History of carpal tunnel release R/L History of colonoscopy History of coronary artery bypass graft CABG x1 + AVR (2015) History of esophagogastroduodenoscopy (EGD) History of myringotomy w/tubes bilat. History of open reduction and internal fixation (ORIF) procedure LLE () History of skin graft Split Thickness Skin Graft of Left Lateral Ankle (11/18/20): LMA#5, atraumatic x1 at [facility] History of tonsillectomy History of tooth extraction History of umbilical hernia repair Hx of cystoscopy w/stent placement; stent then removed Hx of surgical procedure Left Leg Wound Debridement and Irrigation S/P femoropopliteal bypass surgery Right fem-pop bypass graft (01/19/21): Grade 2 view, MAC 3.0, ETT 8.0 at [facility] S/P insertion of iliac artery stent B/L iliac stent placement (2014) 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 Left transmetatarsal amputation (11/23/21): LMA# 5.0 at [facility]. No issues noted per post-op anesthesia progress note. HX 1 SX TO REMOVE ALL TOES LEFT FOOT NOVEMBER 2021 Social History Smoking Status: Former smoker tobacco type: cigarettes Do You Dip or Chew Tobacco: No (HX OF, QUIT 5 YR AGO) Smoking End Date: 15 YR AGO Hx Alcohol Use: No Alcohol type: beer alcohol intake frequency: holidays/special occasions only Hx Substance Use: No substance use type: does not use Testing Electrocardiogram Date: 01/04/22 Findings: + NSR @ (78) and + RBBB Chest X-Ray Date: 06/10/22 Findings: + NAD Echocardiogram Date: 07/11/21 LV Function: normal Valvular Disease: + no significant valvular disease mitral calcification
[2022-06-30] MEDS ORDERED: TRANEXAMIC ACID 1,000 MG **IV Pre-op IV SCH (06:00)
[2022-06-30] MEDS ORDERED: LR 15ML/HR IV SCH ×2 (06:00)
[2022-06-30] MEDS ORDERED: LACTATED RINGER'S 1,000 ML IV SCH (06:00)
[2022-06-30] MEDS ORDERED: VANCOMYCIN HCL 1,250 MG in SODIUM CHLORIDE 0.9% 250 ML IV SCH (06:00)
[2022-06-30] MEDS ORDERED: LIDOCAINE 2% MPF LOCAL 5 ML VIAL INFIL ONE (07:04)
[2022-06-30] MEDS ORDERED: ONDANSETRON INJ 2 MG/ML 2 ML VIAL ONE (07:04)
[2022-06-30] MEDS ORDERED: PROPOFOL IV EMULSION 10 MG/ML 20 ML VIAL IV ONE (07:04)
[2022-06-30] MEDS ORDERED: MIDAZOLAM HCL 1 MG/ML 2ML VIAL ONE (07:04)
[2022-06-30] MEDS ORDERED: fentaNYL citrate 100 MCG/2 ML VIAL ONE ×2 (07:05→09:21)
[2022-06-30] MEDS ORDERED: ATROPINE SULFATE 0.1 MG/ML 10ML SYR IV PRN (08:12)
[2022-06-30] MEDS ORDERED: ONDANSETRON INJ 2 MG/ML 2 ML VIAL IV PRN ×2 (08:12→13:16)
[2022-06-30] MEDS ORDERED: fentaNYL citrate 100 MCG/2 ML VIAL IV PRN (08:12)
[2022-06-30] MEDS ORDERED: HYDROmorphone INJ 2 MG/ML SYR/VIAL IV PRN (08:12)
[2022-06-30] MEDS ORDERED: ePHEDrine sulfate 50 MG/ML AMP IV PRN (08:12)
--- NOTE | 2022-06-30 08:34 | History & Physical Bridge Note ---
Date of Service June 30, 2022 History & Physical Bridge Note I have examined the patient, reviewed the History & Physical and in the interval since the performance of the History & Physical I have noted the following changes of clinical significance: no changes noted
[2022-06-30] MEDS ORDERED: CISATRACURIUM BESYLATE IV SOLN 2 MG/ML 10 ML VIAL IV ONE (11:08)
[2022-06-30] MEDS ORDERED: ACETAMINOPHEN 1000 MG/100 ML IV IV ONE (11:32)
[2022-06-30] MEDS ORDERED: DEXTROSE 50% 50 ML SYRINGE IV ONE (11:48)
[2022-06-30] MEDS ORDERED: DEXTROSE 50% 50 ML SYRINGE IV STA (12:01)
--- NOTE | 2022-06-30 12:04 | Operative Report ---
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 Chowdhury has peripheral artery disease and diabetes. 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 He has had revascularization of his left leg. He had a left leg heel wound debridement and transmetatarsal amputation. His heel wound had healed up but unfortunately broke down. The degree of damage is such that he has a 8 to 10 cm full-thickness eschar over the heel area which Dr. Eason and I believe is not salvageable. Because of this we recommended balloon knee amputation and he has agreed to proceed Description of Procedure Informed consent obtained. Patient identified. He identified the operative site as the left leg. I marked with my initials. A preoperative surgical timeout was performed. A preop dose of IV antibiotics was given. He was taken to the operating room positioned supine on the operating room table a bump was placed under the left hip. A tourniquet was applied to the left thigh but not inflated during the case. The leg was prescribed with Betadine and then prepped with Betadine paint in usual sterile fashion. DVT prophylaxis with early patient mobility. The entire heel had a large hard black eschar over it 8 to 10 cm in diameter. There was a small wound over his transmetatarsal stump and then a 2 x 4 cm full-thickness wound down to the level of the tibia with necrotic necrotic debris on the anterior aspect of the tibia. The foot was excluded from the surgical field with a stockinette. The anterior tibial wound was debrided. There is instruments were passed off it was reprepped with Betadine and then covered with an occlusive dressing. I measured out 12.5 cm distal to the joint line on the tibia as was done on the contralateral side. I then went 1 cm distal to this and incised the skin proceeding posterior and slightly proximal back to the level of the bone resection. This then proceeded distally and posteriorly creating a skin flap that was 1.5 cm times the diameter of his leg. Care was taken to protect the proximal skin at all times. Electrocautery was utilized down to the subcutaneous tissues. There was extensive scarring from previous surgery on the medial lateral sides of the leg. The anterior compartment was divided. The muscles were pale even less colorful than salmon type tissue. Identified the the anterior tibial neurovascular bundle. The nerve was sectioned and the vein was ligated. The artery was double ligated and they were all resected. The lateral compartment was divided and the fibula was exposed slightly proximal to the proposed resection of the tibia. I then dissected medially and expose the tibia circumferentially. The posterior tibial nerve was sectioned and allowed to retract. The artery and vein were likewise ligated. The artery doubly ligated and sectioned. I then remeasured the tibia and made a transverse cut 12.5 cm distal to the medial joint line. This was then beveled anterior and medial cleaned with a rongeur and smoothed with a rasp. I resected the fibula 1 to 1.5 cm proximal. We then dissected the soft tissues off of the posterior aspect of the tibia and remove the lower leg and submitted it as a specimen. The anterior surgical incision was about 3 to 4 cm proximal to the anterior tissue wound. Along the way meticulous hemostasis was performed with electroc autery and stick ties as necessary. 2-0 Vicryl or 0 Vicryl stick ties. Once the specimen had been removed the deep posterior compartment tissues were debulked and the distal portion of the superficial posterior compartment was beveled for closure. The lateral compartment was resected. A artificial graft was noted between the superficial and deep posterior compartments. This was crossed with a hemostat and then triply ligated. Even before ligating I released the hemostat and there was no flow through it. The remainder this was amputated. This was done at the level of the tibia. Assisted Living Housekeeper fluoroscopic images were obtained and 3 L of pulsatile lavage were performed. I did not see any evidence of infection. The skin was viable and could easily be reapproximated. We inserted a large Hemovac drain into the posterior flap bringing it out distally. I then reapproximated the anterior and posterior fascia in a tension-free fashion with 0 Vicryl. The skin was closed with 2-0 Vicryl and 2-0 nylon using near far far near stitches horizontal mattresses and simple stitches with the skin edges everted. Tension-free closure. I was able to bring the fascial portion of the Achilles up over the tibia and so it down to the anterior fascia for a good pad over the stump of the tibia. The leg was cleaned with wet and dry sponges and soft sterile dressing was applied Xeroform 4 x 4's ABD cast padding and a posterior splint with the knee in extension wrapping up over the front of the tibia. James wrap. Patient awakened from anesthesia difficulty taken to the recovery room in stable condition. The leg was sent for specimen. Counts were correct blood loss estimated be 50 cc. At the conclusion the operation spoke patient's family informed of my findings. Plan is admitted to the hospital. Consult medicine. Several days of IV antibiotics. Acute care rehab versus nursing home facility upon discharge. I attest to the content of the Intraoperative Record and any orders documented therein. Any exceptions are noted below.
--- NOTE | 2022-06-30 12:12 | Operative Report ---
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 He was given 1250 mg of IV vancomycin preoperatively. I was present during the entire case, and assisted with positioning, tissue retraction, amputation, irrigation, hemostasis, closure and dressings. Please see Dr. Soto's operative report for further detail. Patient was awakened and transferred recovery room in stable condition. I attest to the content of the Intraoperative Record and any orders documented therein. Any exceptions are noted below.
--- NOTE | 2022-06-30 12:27 | Anesthesiology Progress Note ---
Date of Service June 30, 2022 Anesthesia Post Procedure Vital Signs Vital Signs: Temp Pulse Resp BP Pulse Ox O2 Del Method 06/30/22 06:40 36.7 C 86 20 143/73 H 98 Room Air Transfer of Care Handoff Completed per policy Notes Mental Status: alert / awake / arousable and participated in evaluation Patient Amnestic to Procedure: Yes Nausea / Vomiting: adequately controlled Pain: adequately controlled Airway Patency, RR, SpO2: stable & adequate BP & HR: stable & adequate Hydration State: stable & adequate Anesthetic Complications: no major complications apparent and Pt Satisfied with anesthetic care
[2022-06-30] MEDS ORDERED: PANTOprazole 40 MG TAB PO PRN ×2 (13:16→16:14)
[2022-06-30] MEDS ORDERED: bisacodyL 10 MG SUPP PR PRN (13:16)
[2022-06-30] MEDS ORDERED: diphenhydrAMINE 50 MG/ML VIAL IV PRN (13:16)
[2022-06-30] MEDS ORDERED: HYDROmorphone INJ 1 MG/ML SYRINGE IV PRN (13:16)
[2022-06-30] MEDS ORDERED: NALOXONE HCL 0.4 MG/1 ML VIAL/CARP IV PRN (13:16)
[2022-06-30] MEDS ORDERED: TAMSULOSIN HCL 0.4 MG CAP PO PRN (13:16)
[2022-06-30] MEDS ORDERED: HYDROmorphone INJ 0.5 MG/0.5 ML SYR IV PRN (13:16)
[2022-06-30] MEDS ORDERED: DOCUSATE SODIUM 100 MG CAP PO PRN (13:16)
[2022-06-30] MEDS ORDERED: VANCOMYCIN CONSULT ACTIVE PRN (13:16)
[2022-06-30] MEDS ORDERED: MAGNESIUM HYDROXIDE SUSP 30 ML UDC PO PRN (13:16)
[2022-06-30] MEDS ORDERED: traMADol HCL 50 MG TABLET PO PRN (13:16)
[2022-06-30] MEDS ORDERED: PHARMACY GLYCEMIC MGMT CONSULT PRN ×3 (13:16→18:15)
--- NOTE | 2022-06-30 13:21 | Fluoroscopy Report ---
FL knee LT 1 or 2V CLINICAL HISTORY: LT BKA TECHNIQUE: 1 views were obtained with the C-arm in the OR with the above procedure. Total fluoroscopy time was 10.1 seconds. Comparison: Comparison is made to left tibia and fibula radiograph 05/31/2022 FINDINGS/IMPRESSION: Intraoperative images were obtained of left below-knee amputation. Please correlate with intraoperative fluoroscopy and operative report. ACT 112: Negative or not required by law. Electronically signed by: Lazaro De León M.D. 06/30/2022 1:20 PM
[2022-06-30] MEDS: SODIUM CHLORIDE 0.9% 1000ML 1,000 ML IV SCH ×2 (14:00→21:12)
[2022-06-30] MEDS ORDERED: ACETAMINOPHEN 500 MG TAB ONE (14:05)
[2022-06-30] MEDS: ACETAMINOPHEN 500 MG TAB PO SCH ×2 (14:06→21:02)
[2022-06-30] MEDS: oxyCODONE HCL IR 5 MG TAB (IMMEDIATE RELEASE) PO PRN ×2 (14:08→21:01)
[2022-06-30] MEDS ORDERED: INSULIN ASPART 100 UNITS/ML VIAL SC PRN (15:45)
--- NOTE | 2022-06-30 15:53 | Hospitalist Consultation ---
Date of Consultation June 30, 2022 Assessment & Plan (1) Status post below-knee amputation of left lower extremity: -Patient is currently afebrile, hemodynamically stable, and stable on RA -Pain control, antibiotics, DVT PPX, and IV fluids per the primary team -Agree with am CBC and BMP -Changed Protonix order to scheduled daily for stress ulcer prophylaxis (2) Diabetes type 1, controlled: -Patient has his own insulin pump currently in place -Will let patient control insulin pump -Monitor BSG ACHS -If needed, patient is fine with switching to use controlling insulin (3) Peripheral arterial disease: -Agree with restarting aspirin tomorrow (4) COPD (chronic obstructive pulmonary disease): -Does not appear to be on breathing treatments outpatient -Currently stable on RA -Will add prn albuterol for wheezing (5) PAD (peripheral artery disease): -Agree with restarting aspirin tomorrow (6) CAD (coronary artery disease): -See PAD (7) Hypothyroidism: -Continue levothyroxine (8) Hypertension: -Agree with continuing metoprolol tonight -OK to restart [place] tomorrow as long as electrolytes are stable on am BMP (9) Dyslipidemia: -Continue statin Plan The patient was discussed with Dr. Carrillo at the time of the consult Supervising Physician Co-Signing Physician Notes I personally saw and examined the patient. I verified all perez points and agree with Jose Daniel Sarmiento PA-C with the following exceptions and/or additions: 67 year old male POD#0 left below knee amputation. O/E A&Ox3, surgical dressing not removed but C/D/I, HS RRR, systolic murmur, Chest CTAB, Abdo SNT A/P Status post below knee amputation - antibiotics, pain and VTE management per orthopedics T1DM - patient alert and orientated enough to use his own insulin pump. However continuous glucose monitor appears > 100 mg/dL off finger stick BSG measurements. Suggest using finger stick BSGs for his correction factor on his insulin pump and his usual basal rate and carb ratio. If BSG continues to rise uncontrollably will take over with SQ injections but suspect. Discussed plan with nurse and patient at bedside. History of Present Illness Reason for Consultation: Post-op medical management Requesting Physician: Xander Soto MD Attending Physician: Dr. Isaac Carrillo History of Present Illness Ron is a 67 year old male with a PMH significant for DM I, PAD, COPD, CKD, CAD, HTN, hypothyroidism, Dyslipidemia, and iron deficiency anemia who presneted to the [facility] OR on 06/30/22 for Left Below the Knee Amputation due to left foot ulcer with gangrene. Per the post-op note from Dr. Soto EBL was approximately 50 cc, Anesthesia was listed as General, and no intraoperative complications were listed. At the time of the exam the patient was resting comfortably in bed with his daughters sitting bedside. He states that his pain is currently well-controlled. His insulin pump is still operating at this time, if possible he would prefer to continue to use it; he is fine with having his BSG checked at regular intervals. He confirms that he does not use a CPAP machine at night. He denies any complaints at the time of the exam. Allergies Allergy/AdvReac Type Severity Reaction Status Date / Time No Known Allergies Allergy Unknown Verified 06/30/22 06:26 Home Medications Medication Instructions Recorded Confirmed Type clopidogrel 75 mg tablet (Plavix) 75 mg PO QAM #30 tabs 01/28/21 06/23/22 Rx aspirin 81 mg tablet,delayed 81 mg PO QAM 05/04/21 06/30/22 History release (Mohit Low Dose Aspirin) ferrous sulfate 325 mg (65 mg 325 mg PO BID #60 tabs 08/03/21 06/30/22 Rx iron) tablet,delayed release lactobacillus combination no.9 4 4,000 mmu cells PO QAM 08/04/21 06/30/22 History billion cell capsule (Adult 50 Plus Probiotic) Bed Side Commode #1 ea 08/09/21 06/10/22 Rx Commode rails #1 ea 08/10/21 06/10/22 Rx potassium chloride 20 mEq 20 meq PO BID #60 tabs 09/20/21 06/30/22 Rx tablet,extended release atorvastatin 80 mg tablet (Lipitor) 80 mg PO HS #90 tabs 11/15/21 06/30/22 Rx docusate sodium 100 mg capsule 100 mg PO UD PRN Constipation 01/04/22 06/30/22 History (Colace) calcitriol 0.25 mcg capsule 0.25 mcg PO QAM #30 caps 03/31/22 06/30/22 Rx (Rocaltrol) metoprolol tartrate 25 mg tablet 12.5 mg PO BID #90 tabs 04/17/22 06/30/22 Rx insulin aspart U-100 100 unit/mL 75 unit subcut DAILY 05/09/22 06/30/22 History subcutaneous solution (Novolog U-100 Insulin aspart) chlorthalidone 25 mg tablet 25 mg PO QAM #90 tabs 05/20/22 06/30/22 Rx nystatin 100,000 unit/gram topical 1 applic topical BID #60 grams 05/27/22 06/30/22 Rx powder pantoprazole 40 mg tablet,delayed 40 mg PO UD PRN Acid Reflux 06/08/22 06/30/22 History release (Protonix) cephalexin 500 mg capsule 500 mg PO TID 06/23/22 06/23/22 History folic acid 1 mg tablet 1 mg PO QAM #30 tabs 06/23/22 06/30/22 Rx levothyroxine 175 mcg tablet 175 mcg PO QAM #90 tabs 07/01/22 Rx (Synthroid) Patient History Medical History Aortic stenosis s/p porcine valve replacement (2015) + CABG x1 [place] [facility] [place] CAD (coronary artery disease) s/p CABG x 1 (2015) CKD (chronic kidney disease), stage III Constipation Diabetes mellitus type 1 + Insulin pump Diabetic nephropathy associated with type 1 diabetes mellitus Diabetic ulcer of left foot [place] [facility] [place]. Last visit 06/07/22- left diabetic foot ulcer "Wounds are stable deteriorated. No debridement performed." PT REPORTS LAST VISIT A FEW WEEKS AGO...NEED FOR SX Dyslipidemia GERD (gastroesophageal reflux disease) History of Clostridium difficile infection s/p treatment (2020) History of colon polyps ALL NEGATIVE PER PT 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) History of osteomyelitis left foot Hx MRSA infection 01/2022 (left heel) Hx of renal calculi Hypertension Hypothyroidism Infection LLE - REASON FOR UPCOMING SX/CURRENT ABX TX FOR Insulin pump in place Osteoarthritis Osteoporosis Proliferative diabetic retinopathy associated with type 1 diabetes mellitus PVD (peripheral vascular disease) s/p B/L iliac artery stents (2014), R common/external iliac (2017), R common femoral endarterectomy (11/2018) with bovine patch. Left femoral to PT composite bypass graft (06/2020) Surgical History Below-knee amputation of right lower extremity H/O cataract extraction R/L H/O endarterectomy R common femoral (11/2018) H/O vascular surgery Right Femoral to Posterior tibial Prosthetic Bypass Graft(Right) History of ankle surgery LEFT ANKLE +HARDWARE REMOVED [place] [place] History of arterial bypass of lower extremity Left femoral to PT composite bypass graft (06/2020) History of cardiac cath x2, most recent 2016 > no stents (subsequent CABG with AVR in 2015); [facility] History of carpal tunnel release R/L History of colonoscopy History of coronary artery bypass graft CABG x1 + AVR (2015) History of esophagogastroduodenoscopy (EGD) History of myringotomy w/tubes bilat. History of open reduction and internal fixation (ORIF) procedure LLE () History of skin graft Split Thickness Skin Graft of Left Lateral Ankle (11/18/20): LMA#5, atraumatic x1 at [facility] History of tonsillectomy History of tooth extraction History of umbilical hernia repair Hx of cystoscopy w/stent placement; stent then removed Hx of surgical procedure Left Leg Wound Debridement and Irrigation S/P femoropopliteal bypass surgery Right fem-pop bypass graft (01/19/21): Grade 2 view, MAC 3.0, ETT 8.0 at [facility] S/P insertion of iliac artery stent B/L iliac stent placement (2014) 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 Left transmetatarsal amputation (11/23/21): LMA# 5.0 at [facility]. No issues noted per post-op anesthesia progress note. HX 1 SX TO REMOVE ALL TOES LEFT FOOT NOVEMBER 2021 Family History Brother Family history of diabetes mellitus Sister Family history of diabetes mellitus Mother Family history of diabetes mellitus Grandmother (Maternal) Family history of diabetes mellitus Uncle Family hx of colon cancer Colorectal cancer Father Family history of esophageal cancer Sister Family history of diabetes mellitus Other No family history of adverse response to anesthesia Denies family history of Ovarian cancer Prostate cancer Myocardial infarction Breast cancer Social History (Reviewed 06/10/22 @ 08:53 by MARLEN Riley Smoking Status: Former smoker Tobacco Type: Cigarettes and Smokeless Tobacco (Dip or Chew) Smoking End Date: 15 YR AGO; Second Hand Exposure: Yes (as a child); Do You Dip or Chew Tobacco: No (HX OF, QUIT 5 YR AGO); Hx Alcohol Use: No Hx Substance Use: No Preferred Language: Amharic Communication Ability: Effective Visual Impairment: Limited Hearing Ability: Hard of Hearing 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 ([id number], roughly), protein drinks caffeine: Yes (coffee, rarely ) during the past year weight has: remained stable Dental Care, Regularly: No Seatbelt Use: always Sunscreen Use: No Gender Identity: Male Assistive Devices: Walker and Wheelchair Assistive Devices Comment: SHOWER TRANSPORT CHAIR , BIFOCALS/READING GLASSES, BOTTOM DENTURES BROKEN Review of Systems Review of Systems: Denies current fever, chills, headache, changes in vision, hearing, taste, and smell, chest pain, SOB, cough, abdominal pain, nausea, vomiting, diarrhea, hematemesis, melena, dysuria, hematuria, and recent falls. All systems have been reviewed and are otherwise negative. Physical Exam Physical Exam: Physical Exam: General: In no acute distress, stated age, chronically ill appearing HEENT: Normocephalic, atraumatic, no scleral icterus, pupils around round, symmetrical, and reactive to light, moist mucus membranes, -JVD, trachea midline, no thyromegaly Chest/Pulm: No respiratory distress, symmetrical chest expansion, clear breath sounds throughout Cardiac: RRR, systolic murmur noted Abdomen: Negative for ascites and bruising, normoactive bowel sounds, soft, non-tender to palpation throughout Musculoskeletal: Full ROM of the BL upper extremities. Patient now S/P BL BKA's, left lower extremity is currently wrapped and without signs of drainage Extremities: Radial, pulses are intact and symmetrical, no edema noted in the BL LE's Skin: Warm, dry, no rashes , lesions, or scars noted Neuro: Alert and oriented to person, place, month, year, and president, no focal defects, CN II-XII tested and intact, no tremors noted Psych: No acute distress, calm and cooperative during the exam Results & Data Results & Data ([facility]) Vital Signs (Past 12 Hours) Vital Signs Temp Pulse Pulse Resp BP BP Pulse Ox 06/30/22 14:30 72 20 122/58 L 94 06/30/22 14:15 36.4 C L 74 20 102/46 L 96 06/30/22 13:50 79 14 117/62 95 06/30/22 13:35 76 20 104/58 L 95 06/30/22 13:20 73 16 106/55 L 95 06/30/22 13:10 77 19 113/57 L 95 06/30/22 13:00 81 22 111/56 L 97 06/30/22 12:50 36.4 C L 72 20 117/58 L 95 06/30/22 12:40 74 18 124/54 L 99 06/30/22 12:30 70 21 120/56 L 100 06/30/22 12:20 78 20 109/63 100 06/30/22 12:13 36.0 C L 76 16 121/62 100 06/30/22 06:40 36.7 C 86 20 143/73 H 98 O2 Del Method O2 Flow Rate 06/30/22 14:30 Room Air 06/30/22 14:15 Room Air 06/30/22 13:50 Room Air 06/30/22 13:35 Room Air 06/30/22 13:20 Room Air 06/30/22 13:10 Room Air 06/30/22 13:00 Room Air 06/30/22 12:50 Room Air 06/30/22 12:40 Room Air 06/30/22 12:30 Oxymask 4 06/30/22 12:20 Oxymask 4 06/30/22 12:13 Oxymask 6 06/30/22 06:40 Room Air Laboratory Results Abnormal lab results 06/30/22 06/30/22 06/30/22 Range/Units 06:26 10:35 11:36 POC Glucose 161 H 152 H 134 H (70-99) mg/dl 06/30/22 Range/Units 12:15 POC Glucose 216 H (70-99) mg/dl Diagnostic Findings Knee X-Ray 06/30/22 08:30 FL knee LT 1 or 2V CLINICAL HISTORY: LT BKA TECHNIQUE: 1 views were obtained with the C-arm in the OR with the above procedure. Total fluoroscopy time was 10.1 seconds. Comparison: Comparison is made to left tibia and fibula radiograph 05/31/2022 FINDINGS/IMPRESSION: Intraoperative images were obtained of left below-knee amputation. Please correlate with intraoperative fluoroscopy and operative report. ACT 112: Negative or not required by law. Electronically signed by: Lazaro De León M.D. 06/30/2022 1:20 PM ECG Additional Comments: No ECg available at the time of the consult PG Care Time/CCT Total # of Minutes Spent Total Time Spent with Patient: Total time spent is greater than 50% in coordination of care (as documented) at patient's floor/unit and/or counseling patient: Coding [place] [address] Inpt Consult Level 5 Patient Type Established Medical Decision Making Moderate Complexity Diagnoses Status post below-knee amputation of left lower extremity Z89.512 Diabetes type 1, controlled E10.9 Peripheral arterial disease I73.9 COPD (chronic obstructive pulmonary disease) J44.9 PAD (peripheral artery disease) I73.9 CAD (coronary artery disease) I25.10 Associated angina: without angina Coronary Disease-Associated Artery/Lesion type: [place] artery [place] vs. transplanted heart: [place] heart Hypothyroidism E03.9 Hypothyroidism type: unspecified Hypertension I10 Hypertension type: unspecified Dyslipidemia E78.5 (1) CAD (coronary artery disease) Associated angina: without angina Coronary Disease-Associated Artery/Lesion type: [place] artery [place] vs. transplanted heart: [place] heart Qualified Code(s): I25.10 - Atherosclerotic heart disease of [place] coronary artery without angina pectoris (2) Hypothyroidism Hypothyroidism type: unspecified Qualified Code(s): E03.9 - Hypothyroidism, unspecified (3) Hypertension Hypertension type: unspecified Qualified Code(s): I10 - Essential (primary) hypertension
[2022-06-30] MEDS ORDERED: ALBUTEROL 0.5% NEB SOLN 2.5 MG/0.5 ML VIAL NEB PRN (16:16)
--- NOTE | 2022-06-30 16:39 | Orthopedic Progress Note ---
Date of Service June 30, 2022 Assessment & Plan (1) Status post below-knee amputation of left lower extremity: Plan: Postoperative day 2-tkhke-dbis amputation of the left leg with Dr. Soto today. He may be out of bed with his prosthesis on his right leg and weightbearing as tolerated on the right leg and nonweightbearing on the left. He can use a walker for assistance. PT/OT as ordered. Continue insulin pump for glycemic consult as per patient preference. We will resume his Plavix tomorrow morning. We will also start Lovenox 40 mg subcu daily for the next 2 to 4 weeks for DVT prophylaxis. Home medications were resumed. Vital signs are stable. Hospitalist consult for postoperative medical management. Appreciate assistance. IV vancomycin and Rocephin continue for a few days during his inpatient stay. Diabetic diet as ordered. Will obtain a CBC and BMP in the morning. Will reassess in the morning. Will discuss findings with Dr. Soto. Patient understands and agrees with the plan. Case management for disposition needs. Admission and Anticipated Discharge Date Admission Date: June 30, 2022 Subjective Patient resting in bed. Complains of some mild pain in his left leg. He recently took some Tylenol and oxycodone which has helped significantly with his pain. He had tolerated some food but did not really have much of an appetite. He denies any postoperative nausea or vomiting. He states he does feel little dry and that does cause him sometimes to dry heave but water is helping. Denies any lightheadedness or dizziness. He has not been out of bed. He is in good spirits. Physical Exam Musculoskeletal: Exam of his left lower extremity: His splint and dressings are clean, dry and intact. Very little drainage in the Hemovac. No drainage in the Hemovac aguilar there is some bloody drainage in the tubing of the Hemovac. Results & Data ([facility]) Vital Signs (Past 12 Hours) Vital Signs Temp Pulse Pulse Resp BP BP Pulse Ox 06/30/22 16:13 36.3 C L 75 16 104/67 97 06/30/22 14:53 36.6 C 70 16 118/76 96 06/30/22 14:30 72 20 122/58 L 94 06/30/22 14:15 36.4 C L 74 20 102/46 L 96 06/30/22 13:50 79 14 117/62 95 06/30/22 13:35 76 20 104/58 L 95 06/30/22 13:20 73 16 106/55 L 95 06/30/22 13:10 77 19 113/57 L 95 06/30/22 13:00 81 22 111/56 L 97 06/30/22 12:50 36.4 C L 72 20 117/58 L 95 06/30/22 12:40 74 18 124/54 L 99 06/30/22 12:30 70 21 120/56 L 100 06/30/22 12:20 78 20 109/63 100 06/30/22 12:13 36.0 C L 76 16 121/62 100 06/30/22 06:40 36.7 C 86 20 143/73 H 98 O2 Del Method O2 Flow Rate 06/30/22 16:13 Room Air 06/30/22 14:53 Room Air 06/30/22 14:30 Room Air 06/30/22 14:15 Room Air 06/30/22 13:50 Room Air 06/30/22 13:35 Room Air 06/30/22 13:20 Room Air 06/30/22 13:10 Room Air 06/30/22 13:00 Room Air 06/30/22 12:50 Room Air 06/30/22 12:40 Room Air 06/30/22 12:30 Oxymask 4 06/30/22 12:20 Oxymask 4 06/30/22 12:13 Oxymask 6 06/30/22 06:40 Room Air
[2022-06-30] MEDS: VANCOMYCIN HCL 1,000 MG in SODIUM CHLORIDE 0.9% 250 ML IV SCH (17:11)
[2022-06-30] MEDS: cefTRIAXone SODIUM 2,000 MG in DEXTROSE 5% 50 ML IV SCH (17:11)
[2022-06-30] MEDS: INSULIN, Rapid-Acting PUMP SCH ×2 (17:37→21:03)
[2022-06-30] MEDS ORDERED: TRANEXAMIC ACID / 0.7% NACL 1,000 MG/100 ML BAG IV SCH (18:15)
[2022-06-30] MEDS: METOPROLOL TARTRATE 25 MG TAB PO SCH (21:00)
[2022-06-30] MEDS: POTASSIUM CHLORIDE CRTAB 20 MEQ TABCR PO SCH (21:00)
[2022-06-30] MEDS: ATORVASTATIN 40 MG TAB PO SCH (21:00)
[2022-06-30] MEDS: SENNA 8.6 MG TAB PO SCH (21:01)
[2022-06-30] MEDS: FERROUS SULFATE 325 MG TAB PO SCH (21:01)
[2022-06-30] MEDS: NYSTATIN POWDER 15GM BTL EXT SCH (21:02)
[2022-07-01] MEDS: oxyCODONE HCL IR 5 MG TAB (IMMEDIATE RELEASE) PO PRN ×4 (01:48→21:01)
[2022-07-01] MEDS: VANCOMYCIN HCL 1,000 MG in SODIUM CHLORIDE 0.9% 250 ML IV SCH (04:07)
[2022-07-01] MEDS: LEVOTHYROXINE SODIUM 175 MCG TABLET PO SCH (05:05)
[2022-07-01] MEDS: ACETAMINOPHEN 500 MG TAB PO SCH ×3 (05:05→21:00)
[2022-07-01 06:55] LABS: BUN Creatinine Ratio 25.9 (10-20); Calcium 7.8 mg/dl (8.5-10.1); Creatinine Clr Calc Pharmacy 122.8 ml/min; Potassium 3.6 mmol/L (3.5-5.1)
[2022-07-01] MEDS: CALCITRIOL 0.25 MCG CAPSULE PO SCH (07:40)
[2022-07-01] MEDS: ASPIRIN 81 MG ECTAB PO SCH (07:40)
[2022-07-01] MEDS: ENOXAPARIN INJ 40 MG/0.4 ML SYR SQ SCH (07:40)
[2022-07-01] MEDS: CHLORTHALIDONE 25 MG TAB PO SCH (07:41)
[2022-07-01] MEDS: FOLIC ACID 1 MG TAB PO SCH (07:41)
[2022-07-01] MEDS: FERROUS SULFATE 325 MG TAB PO SCH ×2 (07:41→20:58)
[2022-07-01] MEDS: CLOPIDOGREL BISULFATE 75 MG TAB PO SCH (07:41)
[2022-07-01] MEDS: METOPROLOL TARTRATE 25 MG TAB PO SCH ×2 (07:42→21:02)
[2022-07-01] MEDS: POTASSIUM CHLORIDE CRTAB 20 MEQ TABCR PO SCH ×2 (07:42→20:59)
[2022-07-01] MEDS: ADVANCED PROBIOTIC 1250 MG CAPSULE PO SCH (07:42)
[2022-07-01] MEDS: NYSTATIN POWDER 15GM BTL EXT SCH ×2 (07:42→21:01)
--- NOTE | 2022-07-01 08:11 | Hospitalist Progress Note ---
Date of Service July 01, 2022 Assessment & Plan (1) Status post below-knee amputation of left lower extremity: Plan: Patient is currently afebrile, hemodynamically stable, and stable on RA -Pain control, antibiotics, DVT PPX, and IV fluids per the primary team -- plan to continue abx through weekend, planning for [facility] on Monday Changed Protonix order to scheduled daily for stress ulcer prophylaxis POD#[address] Soto on 06/30. EBL 50cc Continue Ceftriaxone through weekend (was on Vanco/Ceftriaxone) Labs stable on repeat-- hgb 12.2--> 8.9 acute blood loss anemia in patient on PO iron along with dilutional effect from IVF appears earlier this year B12 was 284 -- will repeat in AM/replacement if needed. Prior hx folate deficiency as well, remains on supplementation Pain control - - controlled with PO oxycodone Bowel regimen -- stated no BM since Monday, used MOM at home -- ordered x 1 -- monitor BM (on PO IRON BID) DVT Prophylaxis -- planning Lovenox 2-4 weeks per primary service Did appear dehydrated, complaints of some dizziness/lightheadedness when standing --> ordered 500cc NSS and will monitor. Also had his chlorthalidone resumed this morning, will place on hold for AM Check TSH given low Na to see if adjustments needed to Synthroid BSGs improving -- using our glucometer and his own insulin pump as discrepancies in values PT/OT consults -> CM following, planning for [place] [facility] on Monday (2) Diabetes type 1, controlled: Plan: Patient has his own insulin pump currently in place Elevations to 300s yesterday afternoon -- discrepancies in home pump reading and our glucometer, suspect his reading lower causing elevations Prior admissions difficult to control on sliding scale --> hopefully with adjustments and using our glucometer w/ better control If needed, patient ok w/ switching to sliding scale but will monitor for now. Needs new supplies for his own meter if values varying from 150 compared to ours (3) Peripheral arterial disease: Plan: Prior history of B/L iliac artery stents (2014), R common/external iliac (2017), R common femoral endarterectomy (11/2018) with bovine patch. Left femoral to PT composite bypass graft (06/2020). S/P L fem-anterior tibial bypass with Dr Eason on 11/19/21, now w/ L BKA Continue Plavix/ASA daily (4) COPD (chronic obstructive pulmonary disease): Plan: Does not appear to be on breathing treatments outpatient , stable on RA Albuterol prn wheezing available (5) CAD (coronary artery disease): Plan: S/P CABG x 1 (2015). Aortic Stenosis S/P porcine AV Continue ASA, metoprolol, Plavix, statin (6) Hypothyroidism: Plan: -Continue levothyroxine 175mcg TSH checked for low Na (although close for normal w/ correction for Glu, also on chlorthialidone) --> low 0.026 difficult in acute illness -- rec repeating outpatient in 4 weeks to ensure stable/adjustments pending repeat. Had been normal this summer (7) Hypertension: Plan: Continue metoprolol tartrate 12.5mg BID, hygroton 25mg resumed this morning 07/01 but dehydrated on exam and ordered IVF. Will place on hold for AM BP stable - monitor (8) Dyslipidemia: Plan: -Continue statin (9) Anemia: Plan: acute on chronic, blood loss from surgery remains on PO iron BID prior low folate during prior admit, remains on supplementation Also had prior borderline B12 -- will repeat w/ AM labs as not on replacement/order replacment pending Monitor blood counts in AM Plan continued inpatient stay through weekend until Monday for [facility] Hospitalist service will follow along for now Admission and Anticipated Discharge Date Admission Date: June 30, 2022 Subjective Patient evaluated this morning. Reports doing alright. Pain 4-6/10 , controlled with ordered medications. Passing gas but no BM since Monday, took milk of magnesia prior for several days without BM but notes the oral iron does make him constipated. Will order dose milk of magnesia today. States he went to stand earlier, does endorse some lightheadedness. Some nausea but no vomiting. Appears dehydrated on exam, he is pushing some fluids. States he does think it gets better with drinking some fluids and discussed ordering 500cc and encouraged pushing oral fluids and will monitor. BSGs better than yesterday, his pump reading lower values and we are using our glucometer to ensure better BSG control. Discussed may need to get new supplies for his pump prior to d/c to ensure accurate readings. Review of Systems Review of Systems: All systems reviewed & are unremarkable except as noted in HPI & below Physical Exam Physical Exam: General: WD chronically ill appearing male sitting in bed, NAD HEENT: head normocephalic, atraumatic, mm DRY, trachea midline without deviation Resp: CTAB, no w/c/r, 100% on RA CV: RRR, systolic murmur, no rub/gallop, cap refill wnl GI: +BS, soft nontender MSK/Neuro: follows commands, no focal deficit/slurred speech dressing/splint to LLE c/d/i, minimal tenderness to palpation, ERIC wrap in place, hemovac with scant bloody drainage s/p BKA on the RIGHT, incision looks great/well healed Psych: Aox3, cooperative, pleasant Results & Data Results & Data ([facility]) Vital Signs (Past 12 Hours) Vital Signs Temp Pulse Resp BP Pulse Ox O2 Del Method 07/01/22 07:28 36.5 C 62 16 129/71 100 Room Air 07/01/22 03:38 36.6 C 64 18 150/72 H 99 Room Air 06/30/22 23:00 36.6 C 65 18 130/74 99 Laboratory Results 07/01/22 07/01/22 07/01/22 Range/Units 12:12 08:39 08:17 WBC (4.8-10.8) K/ul RBC (4.63-6.08) M/uL Hgb (14.0-18.0) g/dl Hct (40.1-51.0) % MCV (80.0-100.0) fL MCH (25.0-34.0) pg MCHC (32.0-36.0) g/dL RDW Std Deviation (36.4-46.3) fL RDW Coeff of Chan (11.5-14.5) % Plt Count (130-400) K/uL MPV (9.4-12.4) fL Sodium (136-145) mmol/L Potassium (3.5-5.1) mmol/L Chloride (98-107) mmol/L Carbon Dioxide (21-32) mmol/L Anion Gap (3-11) BUN (6-23) mg/dl Creatinine (0.6-1.4) mg/dl Est Cr Clr Drug Dosing ml/min Est GFR ( Amer) ml/min Est GFR (Non-Af Amer) ml/min BUN/Creatinine Ratio (10-20) Glucose (70-99(Fasting)) mg/dl POC Glucose 176 H 242 H (70-99) mg/dl Calcium (8.5-10.1) mg/dl TSH 0.065 L (0.300-4.500) uIu/ml Free T4 1.48 (0.61-1.60) ng/dl 07/01/22 07/01/22 06/30/22 Range/Units 08:07 06:03 20:52 WBC 9.41 (4.8-10.8) K/ul RBC 3.14 L (4.63-6.08) M/uL Hgb 8.9 L (14.0-18.0) g/dl Hct 26.5 L (40.1-51.0) % MCV 84.4 (80.0-100.0) fL MCH 28.3 (25.0-34.0) pg MCHC 33.6 (32.0-36.0) g/dL RDW Std Deviation 36.6 (36.4-46.3) fL RDW Coeff of Chan 12.0 (11.5-14.5) % Plt Count 283 (130-400) K/uL MPV 9.2 L (9.4-12.4) fL Sodium 130 L (136-145) mmol/L Potassium 3.6 (3.5-5.1) mmol/L Chloride 96 L (98-107) mmol/L Carbon Dioxide 27 (21-32) mmol/L Anion Gap 7 (3-11) BUN 15 (6-23) mg/dl Creatinine 0.58 L (0.6-1.4) mg/dl Est Cr Clr Drug Dosing 122.8 ml/min Est GFR ( Amer) 124.0 ml/min Est GFR (Non-Af Amer) 107.0 ml/min BUN/Creatinine Ratio 25.9 H (10-20) Glucose 206 H (70-99(Fasting)) mg/dl POC Glucose 220 H (70-99) mg/dl Calcium 7.8 L (8.5-10.1) mg/dl TSH (0.300-4.500) uIu/ml Free T4 (0.61-1.60) ng/dl 06/30/22 06/30/22 06/30/22 Range/Units 18:42 16:38 16:37 WBC (4.8-10.8) K/ul RBC (4.63-6.08) M/uL Hgb (14.0-18.0) g/dl Hct (40.1-51.0) % MCV (80.0-100.0) fL MCH (25.0-34.0) pg MCHC (32.0-36.0) g/dL RDW Std Deviation (36.4-46.3) fL RDW Coeff of Chan (11.5-14.5) % Plt Count (130-400) K/uL MPV (9.4-12.4) fL Sodium (136-145) mmol/L Potassium (3.5-5.1) mmol/L Chloride (98-107) mmol/L Carbon Dioxide (21-32) mmol/L Anion Gap (3-11) BUN (6-23) mg/dl Creatinine (0.6-1.4) mg/dl Est Cr Clr Drug Dosing ml/min Est GFR ( Amer) ml/min Est GFR (Non-Af Amer) ml/min BUN/Creatinine Ratio (10-20) Glucose (70-99(Fasting)) mg/dl POC Glucose 300 H 315 H* 353 H* (70-99) mg/dl Calcium (8.5-10.1) mg/dl TSH (0.300-4.500) uIu/ml Free T4 (0.61-1.60) ng/dl PG Care Time/CCT Total # of Minutes Spent Total Time Spent with Patient: Total time spent is greater than 50% in coordination of care (as documented) at patient's floor/unit and/or counseling patient: Coding Level of Care Code 89897 Subseq Hosp Care Lvl 3 Diagnoses Status post below-knee amputation of left lower extremity Z89.512 Diabetes type 1, controlled E10.9 Peripheral arterial disease I73.9 COPD (chronic obstructive pulmonary disease) J44.9 CAD (coronary artery disease) I25.10 Associated angina: without angina Coronary Disease-Associated Artery/Lesion type: [place] artery [place] vs. transplanted heart: morongo heart Hypothyroidism E03.9 Hypothyroidism type: unspecified Hypertension I10 Hypertension type: unspecified Dyslipidemia E78.5 Anemia D64.9 (1) CAD (coronary artery disease) Associated angina: without angina Coronary Disease-Associated Artery/Lesion type: [place] artery [place] vs. transplanted heart: [place]ongo heart Qualified Code(s): I25.10 - Atherosclerotic heart disease of mor[place] coronary artery without angina pectoris (2) Hypothyroidism Hypothyroidism type: unspecified Qualified Code(s): E03.9 - Hypothyroidism, unspecified (3) Hypertension Hypertension type: unspecified Qualified Code(s): I10 - Essential (primary) hypertension
[2022-07-01 08:19] LABS: Hematocrit (blood only) 26.5 % (40.1-51.0); Hemoglobin 8.9 g/dl (14.0-18.0); Mean Corpuscular Hemoglobin 28.3 pg (25.0-34.0); Mean Corpuscular Hgb Conc 33.6 g/dL (32.0-36.0); Mean Corpuscular Volume 84.4 fL (80.0-100.0); Mean Platelet Volume 9.2 fL (9.4-12.4); Platelet Count 283 K/uL (130-400); RDW Standard Deviation 36.6 fL (36.4-46.3); Red Blood Count 3.14 M/uL (4.63-6.08); White Blood Count 9.41 K/ul (4.8-10.8)
[2022-07-01] MEDS: INSULIN, Rapid-Acting PUMP SCH ×4 (08:49→21:02)
[2022-07-01 09:41] LABS: Thyroid Stimulating Hormone 0.065 uIu/ml (0.300-4.500)
[2022-07-01] MEDS ORDERED: VANCOMYCIN HCL 1,500 MG in SODIUM CHLORIDE 0.9% 500 ML IV SCH (10:00)
[2022-07-01 10:16] LABS: T4 Free Thyroxine 1.48 ng/dl (0.61-1.60)
[2022-07-01] MEDS ORDERED: MAGNESIUM HYDROXIDE SUSP 30 ML UDC PO ONE (10:38)
--- NOTE | 2022-07-01 10:54 | Orthopedic Progress Note ---
Date of Service July 01, 2022 Assessment & Plan (1) Status post below-knee amputation of left lower extremity: Plan: Postoperative day [id number] amputation of the left leg with Dr. Soto He may be out of bed with his prosthesis on his right leg and weightbearing as tolerated on the right leg and nonweightbearing on the left. He can use a walker for assistance. PT/OT as ordered. Continue insulin pump for glycemic consult as per patient preference. Resumed Plavix this morning. We will also start Lovenox 40 mg SQ daily for the next 2 to 4 weeks for DVT prophylaxis. Home medications were resumed. Vital signs are stable. Hospitalist consult for postoperative medical management. Appreciate assistance. IV vancomycin and Rocephin continue for a few days during his inpatient stay. Diabetic diet as ordered. Will obtain a CBC and BMP in the morning. Will reassess in the morning. Will discuss findings with Dr. Soto. Patient understands and agrees with the plan. Case management for disposition needs. Admission and Anticipated Discharge Date Admission Date: June 30, 2022 Subjective This 67-year-old male is day 1 status post below the knee amputation of his left lower extremity. He states that his pain is fairly well controlled with 10 mg of oxycodone. States that he has good sensation in the extremity. He is getting set to do some physical therapy and Occupational Therapy after his evaluation this morning. Currently he denies any chest pain, shortness of breath, fever, chills, sweats or lethargy. He also denies nausea, vomiting or difficulty voiding. Review of Systems Review of Systems: All systems reviewed & are unremarkable except as noted in Subjective Physical Exam Physical Exam: Left lower extremity: Splint and dressing were kept in place. There is no drainage in the Hemovac drain. Patient is able to extend at the hip without difficulty. He is able to detect sensation to touch over the stump when palpated. Results & Data ([facility]) Vital Signs (Past 12 Hours) Vital Signs Temp Pulse Resp BP Pulse Ox O2 Del Method 07/01/22 07:28 36.5 C 62 16 129/71 100 Room Air 07/01/22 03:38 36.6 C 64 18 150/72 H 99 Room Air 06/30/22 23:00 36.6 C 65 18 130/74 99 Diagnostic Findings Laboratory Results WBC 9.41 K/ul (4.8-10.8) 07/01/22 08:07 RBC 3.14 M/uL (4.63-6.08) L 07/01/22 08:07 Hgb 8.9 g/dl (14.0-18.0) L 07/01/22 08:07 Hct 26.5 % (40.1-51.0) L 07/01/22 08:07 MCV 84.4 fL (80.0-100.0) 07/01/22 08:07 MCH 28.3 pg (25.0-34.0) 07/01/22 08:07 MCHC 33.6 g/dL (32.0-36.0) 07/01/22 08:07 RDW Std Deviation 36.6 fL (36.4-46.3) 07/01/22 08:07 RDW Coeff of Chan 12.0 % (11.5-14.5) 07/01/22 08:07 Plt Count 283 K/uL (130-400) 07/01/22 08:07 MPV 9.2 fL (9.4-12.4) L 07/01/22 08:07 Sodium 130 mmol/L (136-145) L 07/01/22 06:03 Potassium 3.6 mmol/L (3.5-5.1) 07/01/22 06:03 Chloride 96 mmol/L (98-107) L 07/01/22 06:03 Carbon Dioxide 27 mmol/L (21-32) 07/01/22 06:03 Anion Gap 7 (3-11) 07/01/22 06:03 BUN 15 mg/dl (6-23) 07/01/22 06:03 Creatinine 0.58 mg/dl (0.6-1.4) L 07/01/22 06:03 Est Cr Clr Drug Dosing 122.8 ml/min 07/01/22 06:03 Est GFR ( Amer) 124.0 ml/min 07/01/22 06:03 Est GFR (Non-Af Amer) 107.0 ml/min 07/01/22 06:03 BUN/Creatinine Ratio 25.9 (10-20) H 07/01/22 06:03 Glucose 206 mg/dl (70-99(Fasting)) H 07/01/22 06:03 POC Glucose 242 mg/dl (70-99) H 07/01/22 08:17 Calcium 7.8 mg/dl (8.5-10.1) L 07/01/22 06:03 TSH 0.065 uIu/ml (0.300-4.500) L 07/01/22 08:39 Free T4 1.48 ng/dl (0.61-1.60) 07/01/22 08:39 SARS-CoV-2, RNA, NAAT NEGATIVE (NEGATIVE) 06/30/22 Unknown Blood Type A Positive 06/30/22 06:55 Antibody Screen NEGATIVE 06/30/22 06:55 Impressions Knee X-Ray 06/30/22 08:30 FL knee LT 1 or 2V CLINICAL HISTORY: LT BKA TECHNIQUE: 1 views were obtained with the C-arm in the OR with the above procedure. Total fluoroscopy time was 10.1 seconds. Comparison: Comparison is made to left tibia and fibula radiograph 05/31/2022 FINDINGS/IMPRESSION: Intraoperative images were obtained of left below-knee amputation. Please correlate with intraoperative fluoroscopy and operative report. ACT 112: Negative or not required by law. Electronically signed by: Lazaro De León M.D. 06/30/2022 1:20 PM
[2022-07-01] MEDS: SODIUM CHLORIDE 0.9% 500 ML IV SCH ×3 (11:18→23:59)
--- NOTE | 2022-07-01 14:44 | Progress Notes ---
DATE OF SERVICE: 07/01/2022 The patient is seen in conjunction with the physician's information services assistant. For further details, refer to the ir dictation. We saw and evaluated together and I am in agreement with plan. He is afebrile with st able vital signs. He has had some burning pain controlled with oxycodone. White count 9, hemoglobin 9, and hematocrit 27. PRP is noted. Medicine consult appreciated. Drain output minimal and is pul led. The stump dressing is clean, dry, and intact. He has had some difficulty urinating and we are recommending that he stand up at bedside with assistance in his prosthesis to void. I will be out th rough the weekend and Dr. Bergeron and Riky Estrada will be covering. We will leave the dressing intac t until Monday. We will continue antibiotics through the weekend. Plan for center care. He can kuldeep ght bear as tolerated on the right leg. Lovenox for DVT prophylaxis. Job ID: [id number]
[2022-07-01] MEDS: cefTRIAXone SODIUM 2,000 MG in DEXTROSE 5% 50 ML IV SCH (15:49)
[2022-07-01] MEDS: ATORVASTATIN 40 MG TAB PO SCH (20:58)
[2022-07-01] MEDS: SENNA 8.6 MG TAB PO SCH (21:00)
[2022-07-02] MEDS: oxyCODONE HCL IR 5 MG TAB (IMMEDIATE RELEASE) PO PRN ×5 (02:28→23:57)
[2022-07-02] MEDS: ACETAMINOPHEN 500 MG TAB PO SCH ×3 (05:46→21:54)
[2022-07-02] MEDS: SODIUM CHLORIDE 0.9% 500 ML IV SCH ×2 (05:46→12:16)
[2022-07-02] MEDS: LEVOTHYROXINE SODIUM 175 MCG TABLET PO SCH (05:47)
[2022-07-02 07:27] LABS: Hematocrit (blood only) 26.1 % (40.1-51.0); Hemoglobin 8.6 g/dl (14.0-18.0)
[2022-07-02] MEDS: POTASSIUM CHLORIDE CRTAB 20 MEQ TABCR PO SCH ×2 (07:44→20:43)
[2022-07-02] MEDS: ASPIRIN 81 MG ECTAB PO SCH (07:45)
[2022-07-02] MEDS: ENOXAPARIN INJ 40 MG/0.4 ML SYR SQ SCH (07:45)
[2022-07-02] MEDS: FOLIC ACID 1 MG TAB PO SCH (07:45)
[2022-07-02] MEDS: METOPROLOL TARTRATE 25 MG TAB PO SCH ×2 (07:45→20:44)
[2022-07-02] MEDS: CLOPIDOGREL BISULFATE 75 MG TAB PO SCH (07:45)
[2022-07-02] MEDS: CALCITRIOL 0.25 MCG CAPSULE PO SCH (07:45)
[2022-07-02] MEDS: ADVANCED PROBIOTIC 1250 MG CAPSULE PO SCH (07:45)
[2022-07-02] MEDS: NYSTATIN POWDER 15GM BTL EXT SCH ×2 (07:45→20:46)
[2022-07-02] MEDS: FERROUS SULFATE 325 MG TAB PO SCH ×2 (07:45→20:45)
[2022-07-02 07:49] LABS: BUN Creatinine Ratio 12.1 (10-20); Calcium 8.1 mg/dl (8.5-10.1); Est GFR (African American) 117.6 ml/min; Est GFR (Non-African American) 101.5 ml/min; Potassium 3.5 mmol/L (3.5-5.1)
--- NOTE | 2022-07-02 08:03 | Hospitalist Progress Note ---
Date of Service July 02, 2022 Assessment & Plan (1) Status post below-knee amputation of left lower extremity: Plan: Patient is currently afebrile, hemodynamically stable, and stable on RA -Pain control, antibiotics, DVT PPX, and IV fluids per the primary team -- plan to continue abx through weekend, planning for [facility] on Monday Changed Protonix order to scheduled daily for stress ulcer prophylaxis POD#[address] Soto on 06/30. EBL 50cc Continue Ceftriaxone through weekend (was on Vanco/Ceftriaxone) Labs stable on repeat-- hgb 12.2--> 8.9--> 8.6 acute blood loss anemia in patient on PO iron along with dilutional effect from IVF as ordered additional IVF 07/01 for dehydration on exam w/ dizziness/lightheadedness when standing and had gotten his AM chlorthalidone 07/01, subsequently placed on hold for 07/02 improvement in hydration, no further sx and IVF to be completed after current bag around lunch 07/02. Monitor labs in am/only resume chlorthaidone if BP elevated/Cr stable to prevent worsening dehydration/issues with constipation Pain control -- controlled with PO oxycodone Bowel regimen -- stated no BM since Monday, used MOM at home -- ordered x 1 -- monitor BM (on PO IRON BID). Passing more gas, added colace BID this morning. Enema if needed DVT Prophylaxis -- planning Lovenox 2-4 weeks per primary service BSGs stable, did have some low this AM/improved with geo puentes. Attempting to continue to use home insulin pump PT/OT consults -> CM following, planning for [facility] on Monday (2) Diabetes type 1, controlled: Plan: Patient has his own insulin pump currently in place Elevations to 300s afternoon 07/01 -- discrepancies in home pump reading and our glucometer, suspect his reading lower causing elevations Prior admissions difficult to control on sliding scale --> hopefully with adjustments and using our glucometer w/ better control If needed, patient ok w/ switching to sliding scale but will monitor for now. Needs new supplies for his own meter if values varying from 150 compared to ours Some lows this morning but overall much better Continue to monitor for now (3) Peripheral arterial disease: Plan: Prior history of B/L iliac artery stents (2014), R common/external iliac (2018), R common femoral endarterectomy (11/2018) with bovine patch. Left femoral to PT composite bypass graft (06/2020). S/P L fem-anterior tibial bypass with Dr Eason on 11/19/21, now w/ L BKA Continue Plavix/ASA daily (4) COPD (chronic obstructive pulmonary disease): Plan: Does not appear to be on breathing treatments outpatient , stable on RA Albuterol prn wheezing available (5) CAD (coronary artery disease): Plan: S/P CABG x 1 (2015). Aortic Stenosis S/P porcine AV Continue ASA, metoprolol, Plavix, statin (6) Hypothyroidism: Plan: -Continue levothyroxine 175mcg TSH checked for low Na (although close for normal w/ correction for Glu, also on chlorthialidone) --> low 0.026 difficult in acute illness -- rec repeating outpatient in 4 weeks to ensure stable/adjustments pending repeat. Had been normal this summer (7) Hypertension: Plan: Continue metoprolol tartrate 12.5mg BID, hygroton 25mg resumed morning 07/01 but dehydrated on exam and ordered IVF. placed on hold for no BP 112/66 Continue to hold chlorthalidone for now -- IVF to be completed this afternoon Monitor BP, resume when acceptable/hydration status stable/elevated BP (8) Dyslipidemia: Plan: -Continue statin (9) Anemia: Plan: acute on chronic, blood loss from surgery remains on PO iron BID prior low folate during prior admit, remains on supplementation Also had prior borderline B12 -- repeat wnl IVF to be completed, suspect current some aspect of dilution given additional fluids 07/01 CBC in AM off fluids, drain pulled Plan continued inpatient stay through weekend until Monday for [facility] Hospitalist service will follow along Please call with any questions/concerns Admission and Anticipated Discharge Date Admission Date: June 30, 2022 Subjective Patient evaluated this morning. Doing well. MM improved but still little dry. Continued IVF/holding chlorthalidone for now. No further lightheaded/dizziness. Added Colace, passing more gas but no BM. Got MOM yesterday and discussed is available this afternoon if still no BM. Pain controlled with ordered medications. Drain removed yesterday. Pain primarily to lower posterior aspect of stump. Elevated further on pillow for patient. BSGs a little low this morning, he can tell a little shaky. Ate some geo crackers and wanting another pack. Provided and will continue to monitor. No fever/chills, chest pain, shortness of breath, or nausea/vomiting reported. Review of Systems Review of Systems: All systems reviewed & are unremarkable except as noted in HPI & below Physical Exam Physical Exam: General: WD chronically ill appearing male sitting in bed, NAD HEENT: head normocephalic, atraumatic, mm DRY, trachea midline without deviation Resp: CTAB, no w/c/r, on room air CV: RRR, systolic murmur, no rub/gallop, cap refill wnl GI: +BS, soft nontender MSK/Neuro: follows commands, no focal deficit/slurred speech dressing/splint to LLE c/d/i, minimal tenderness to palpation, ERIC wrap in place, hemovac with scant bloody drainage s/p BKA on the RIGHT, incision looks great/well healed Psych: Aox3, cooperative, pleasant Results & Data Results & Data ([facility]) Vital Signs (Past 12 Hours) Vital Signs Temp Pulse Resp BP BP Pulse Ox O2 Del Method 07/02/22 07:32 36.6 C 65 16 112/66 97 Room Air 07/01/22 22:25 36.6 C 72 16 128/75 98 Room Air Laboratory Results 07/02/22 07/02/22 07/02/22 Range/Units 07:00 07:00 07:00 WBC (4.8-10.8) K/ul RBC (4.63-6.08) M/uL Hgb 8.6 L (14.0-18.0) g/dl Hct 26.1 L (40.1-51.0) % MCV (80.0-100.0) fL MCH (25.0-34.0) pg MCHC (32.0-36.0) g/dL RDW Std Deviation (36.4-46.3) fL RDW Coeff of Chan (11.5-14.5) % Plt Count (130-400) K/uL MPV (9.4-12.4) fL Sodium 136 (136-145) mmol/L Potassium 3.5 (3.5-5.1) mmol/L Chloride 98 (98-107) mmol/L Carbon Dioxide 34 H (21-32) mmol/L Anion Gap 4 (3-11) BUN 8 (6-23) mg/dl Creatinine 0.66 (0.6-1.4) mg/dl Est Cr Clr Drug Dosing 108.0 ml/min Est GFR ( Amer) 117.6 ml/min Est GFR (Non-Af Amer) 101.5 ml/min BUN/Creatinine Ratio 12.1 (10-20) Glucose 96 (70-99(Fasting)) mg/dl POC Glucose (70-99) mg/dl Calcium 8.1 L (8.5-10.1) mg/dl Magnesium (1.7-2.4) mg/dl Vitamin B12 Pending 25-OH Vitamin D Total Pending TSH (0.300-4.500) uIu/ml Free T4 (0.61-1.60) ng/dl 07/02/22 07/02/22 07/01/22 Range/Units 06:05 05:49 20:43 WBC (4.8-10.8) K/ul RBC (4.63-6.08) M/uL Hgb (14.0-18.0) g/dl Hct (40.1-51.0) % MCV (80.0-100.0) fL MCH (25.0-34.0) pg MCHC (32.0-36.0) g/dL RDW Std Deviation (36.4-46.3) fL RDW Coeff of Chan (11.5-14.5) % Plt Count (130-400) K/uL MPV (9.4-12.4) fL Sodium (136-145) mmol/L Potassium (3.5-5.1) mmol/L Chloride (98-107) mmol/L Carbon Dioxide (21-32) mmol/L Anion Gap (3-11) BUN (6-23) mg/dl Creatinine (0.6-1.4) mg/dl Est Cr Clr Drug Dosing ml/min Est GFR ( Amer) ml/min Est GFR (Non-Af Amer) ml/min BUN/Creatinine Ratio (10-20) Glucose (70-99(Fasting)) mg/dl POC Glucose 71 65 L* 71 (70-99) mg/dl Calcium (8.5-10.1) mg/dl Magnesium (1.7-2.4) mg/dl Vitamin B12 25-OH Vitamin D Total TSH (0.300-4.500) uIu/ml Free T4 (0.61-1.60) ng/dl 07/01/22 07/01/22 07/01/22 Range/Units 20:39 17:13 15:59 WBC (4.8-10.8) K/ul RBC (4.63-6.08) M/uL Hgb (14.0-18.0) g/dl Hct (40.1-51.0) % MCV (80.0-100.0) fL MCH (25.0-34.0) pg MCHC (32.0-36.0) g/dL RDW Std Deviation (36.4-46.3) fL RDW Coeff of Chan (11.5-14.5) % Plt Count (130-400) K/uL MPV (9.4-12.4) fL Sodium (136-145) mmol/L Potassium (3.5-5.1) mmol/L Chloride (98-107) mmol/L Carbon Dioxide (21-32) mmol/L Anion Gap (3-11) BUN (6-23) mg/dl Creatinine (0.6-1.4) mg/dl Est Cr Clr Drug Dosing ml/min Est GFR ( Amer) ml/min Est GFR (Non-Af Amer) ml/min BUN/Creatinine Ratio (10-20) Glucose (70-99(Fasting)) mg/dl POC Glucose 63 L* 87 100 H (70-99) mg/dl Calcium (8.5-10.1) mg/dl Magnesium (1.7-2.4) mg/dl Vitamin B12 25-OH Vitamin D Total TSH (0.300-4.500) uIu/ml Free T4 (0.61-1.60) ng/dl 07/01/22 07/01/22 07/01/22 Range/Units 12:12 08:43 08:39 WBC (4.8-10.8) K/ul RBC (4.63-6.08) M/uL Hgb (14.0-18.0) g/dl Hct (40.1-51.0) % MCV (80.0-100.0) fL MCH (25.0-34.0) pg MCHC (32.0-36.0) g/dL RDW Std Deviation (36.4-46.3) fL RDW Coeff of Chan (11.5-14.5) % Plt Count (130-400) K/uL MPV (9.4-12.4) fL Sodium (136-145) mmol/L Potassium (3.5-5.1) mmol/L Chloride (98-107) mmol/L Carbon Dioxide (21-32) mmol/L Anion Gap (3-11) BUN (6-23) mg/dl Creatinine (0.6-1.4) mg/dl Est Cr Clr Drug Dosing ml/min Est GFR ( Amer) ml/min Est GFR (Non-Af Amer) ml/min BUN/Creatinine Ratio (10-20) Glucose (70-99(Fasting)) mg/dl POC Glucose 176 H (70-99) mg/dl Calcium (8.5-10.1) mg/dl Magnesium 1.9 (1.7-2.4) mg/dl Vitamin B12 25-OH Vitamin D Total TSH 0.065 L (0.300-4.500) uIu/ml Free T4 1.48 (0.61-1.60) ng/dl 07/01/22 07/01/22 Range/Units 08:17 08:07 WBC 9.41 (4.8-10.8) K/ul RBC 3.14 L (4.63-6.08) M/uL Hgb 8.9 L (14.0-18.0) g/dl Hct 26.5 L (40.1-51.0) % MCV 84.4 (80.0-100.0) fL MCH 28.3 (25.0-34.0) pg MCHC 33.6 (32.0-36.0) g/dL RDW Std Deviation 36.6 (36.4-46.3) fL RDW Coeff of Chan 12.0 (11.5-14.5) % Plt Count 283 (130-400) K/uL MPV 9.2 L (9.4-12.4) fL Sodium (136-145) mmol/L Potassium (3.5-5.1) mmol/L Chloride (98-107) mmol/L Carbon Dioxide (21-32) mmol/L Anion Gap (3-11) BUN (6-23) mg/dl Creatinine (0.6-1.4) mg/dl Est Cr Clr Drug Dosing ml/min Est GFR ( Amer) ml/min Est GFR (Non-Af Amer) ml/min BUN/Creatinine Ratio (10-20) Glucose (70-99(Fasting)) mg/dl POC Glucose 242 H (70-99) mg/dl Calcium (8.5-10.1) mg/dl Magnesium (1.7-2.4) mg/dl Vitamin B12 25-OH Vitamin D Total TSH (0.300-4.500) uIu/ml Free T4 (0.61-1.60) ng/dl PG Care Time/CCT Total # of Minutes Spent Total Time Spent with Patient: Total time spent is greater than 50% in coordination of care (as documented) at patient's floor/unit and/or counseling patient: Coding Level of Care Code 24459 Subseq Hosp Care Lvl 3 Diagnoses Status post below-knee amputation of left lower extremity Z89.512 Diabetes type 1, controlled E10.9 Peripheral arterial disease I73.9 COPD (chronic obstructive pulmonary disease) J44.9 CAD (coronary artery disease) I25.10 Associated angina: without angina Coronary Disease-Associated Artery/Lesion type: [place] artery [place] vs. transplanted heart: [place] heart Hypothyroidism E03.9 Hypothyroidism type: unspecified Hypertension I10 Hypertension type: unspecified Dyslipidemia E78.5 Anemia D64.9 (1) CAD (coronary artery disease) Associated angina: without angina Coronary Disease-Associated Artery/Lesion type: [place] artery [place] vs. transplanted heart: [place] heart Qualified Code(s): I25.10 - Atherosclerotic heart disease of [place] coronary artery without angina pectoris (2) Hypothyroidism Hypothyroidism type: unspecified Qualified Code(s): E03.9 - Hypothyroidism, unspecified (3) Hypertension Hypertension type: unspecified Qualified Code(s): I10 - Essential (primary) hypertension
[2022-07-02 08:20] LABS: Vitamin D, 25 Hydrox 12.4 ng/ml (30-100)
--- NOTE | 2022-07-02 08:53 | Orthopedic Progress Note ---
Date of Service July 02, 2022 Assessment & Plan (1) Status post below-knee amputation of left lower extremity: Plan: Postoperative day [id number] amputation of the left leg with Dr. Soto He may be out of bed with his prosthesis on his right leg and weightbearing as tolerated on the right leg and nonweightbearing on the left. He can use a walker for assistance. PT/OT as ordered. Continue insulin pump for glycemic consult as per patient preference. Continue Plavix. Continue Lovenox 40 mg SQ daily for the next 2 to 4 weeks for DVT prophylaxis. Home medications resumed. Vital signs are stable. Hospitalist consult for postoperative medical management. Appreciate assistance. IV vancomycin and Rocephin continue for a few days during his inpatient stay. Diabetic diet as ordered. Case management for disposition needs. Covering for Dr. Soto over the weekend. Admission and Anticipated Discharge Date Admission Date: June 30, 2022 Subjective Left leg pain more than he remembers having on the right side, but pain is controlled with 10mg Oxycodone. Review of Systems Review of Systems: All systems reviewed & are unremarkable except as noted in HPI & below Physical Exam Physical Exam: LLE: Dressing is clean, dry, intact. Results & Data ([facility]) Vital Signs (Past 12 Hours) Vital Signs Temp Pulse Resp BP BP Pulse Ox O2 Del Method 07/02/22 07:32 36.6 C 65 16 112/66 97 Room Air 07/01/22 22:25 36.6 C 72 16 128/75 98 Room Air Laboratory Results 07/02/22 07/02/22 07/02/22 Range/Units 08:20 07:00 07:00 Hgb (14.0-18.0) g/dl Hct (40.1-51.0) % Sodium 136 (136-145) mmol/L Potassium 3.5 (3.5-5.1) mmol/L Chloride 98 (98-107) mmol/L Carbon Dioxide 34 H (21-32) mmol/L Anion Gap 4 (3-11) BUN 8 (6-23) mg/dl Creatinine 0.66 (0.6-1.4) mg/dl Est Cr Clr Drug Dosing 108.0 ml/min Est GFR ( Amer) 117.6 ml/min Est GFR (Non-Af Amer) 101.5 ml/min BUN/Creatinine Ratio 12.1 (10-20) Glucose 96 (70-99(Fasting)) mg/dl POC Glucose 81 (70-99) mg/dl Calcium 8.1 L (8.5-10.1) mg/dl Magnesium (1.7-2.4) mg/dl Vitamin B12 797 (180-914) pg/ml 25-OH Vitamin D Total 12.4 L (30-100) ng/ml TSH (0.300-4.500) uIu/ml Free T4 (0.61-1.60) ng/dl 07/02/22 07/02/22 07/02/22 Range/Units 07:00 06:05 05:49 Hgb 8.6 L (14.0-18.0) g/dl Hct 26.1 L (40.1-51.0) % Sodium (136-145) mmol/L Potassium (3.5-5.1) mmol/L Chloride (98-107) mmol/L Carbon Dioxide (21-32) mmol/L Anion Gap (3-11) BUN (6-23) mg/dl Creatinine (0.6-1.4) mg/dl Est Cr Clr Drug Dosing ml/min Est GFR ( Amer) ml/min Est GFR (Non-Af Amer) ml/min BUN/Creatinine Ratio (10-20) Glucose (70-99(Fasting)) mg/dl POC Glucose 71 65 L* (70-99) mg/dl Calcium (8.5-10.1) mg/dl Magnesium (1.7-2.4) mg/dl Vitamin B12 (180-914) pg/ml 25-OH Vitamin D Total (30-100) ng/ml TSH (0.300-4.500) uIu/ml Free T4 (0.61-1.60) ng/dl 07/01/22 07/01/22 07/01/22 Range/Units 20:43 20:39 17:13 Hgb (14.0-18.0) g/dl Hct (40.1-51.0) % Sodium (136-145) mmol/L Potassium (3.5-5.1) mmol/L Chloride (98-107) mmol/L Carbon Dioxide (21-32) mmol/L Anion Gap (3-11) BUN (6-23) mg/dl Creatinine (0.6-1.4) mg/dl Est Cr Clr Drug Dosing ml/min Est GFR ( Amer) ml/min Est GFR (Non-Af Amer) ml/min BUN/Creatinine Ratio (10-20) Glucose (70-99(Fasting)) mg/dl POC Glucose 71 63 L* 87 (70-99) mg/dl Calcium (8.5-10.1) mg/dl Magnesium (1.7-2.4) mg/dl Vitamin B12 (180-914) pg/ml 25-OH Vitamin D Total (30-100) ng/ml TSH (0.300-4.500) uIu/ml Free T4 (0.61-1.60) ng/dl 07/01/22 07/01/22 07/01/22 Range/Units 15:59 12:12 08:43 Hgb (14.0-18.0) g/dl Hct (40.1-51.0) % Sodium (136-145) mmol/L Potassium (3.5-5.1) mmol/L Chloride (98-107) mmol/L Carbon Dioxide (21-32) mmol/L Anion Gap (3-11) BUN (6-23) mg/dl Creatinine (0.6-1.4) mg/dl Est Cr Clr Drug Dosing ml/min Est GFR ( Amer) ml/min Est GFR (Non-Af Amer) ml/min BUN/Creatinine Ratio (10-20) Glucose (70-99(Fasting)) mg/dl POC Glucose 100 H 176 H (70-99) mg/dl Calcium (8.5-10.1) mg/dl Magnesium 1.9 (1.7-2.4) mg/dl Vitamin B12 (180-914) pg/ml 25-OH Vitamin D Total (30-100) ng/ml TSH (0.300-4.500) uIu/ml Free T4 (0.61-1.60) ng/dl 07/01/22 Range/Units 08:39 Hgb (14.0-18.0) g/dl Hct (40.1-51.0) % Sodium (136-145) mmol/L Potassium (3.5-5.1) mmol/L Chloride (98-107) mmol/L Carbon Dioxide (21-32) mmol/L Anion Gap (3-11) BUN (6-23) mg/dl Creatinine (0.6-1.4) mg/dl Est Cr Clr Drug Dosing ml/min Est GFR ( Amer) ml/min Est GFR (Non-Af Amer) ml/min BUN/Creatinine Ratio (10-20) Glucose (70-99(Fasting)) mg/dl POC Glucose (70-99) mg/dl Calcium (8.5-10.1) mg/dl Magnesium (1.7-2.4) mg/dl Vitamin B12 (180-914) pg/ml 25-OH Vitamin D Total (30-100) ng/ml TSH 0.065 L (0.300-4.500) uIu/ml Free T4 1.48 (0.61-1.60) ng/dl
[2022-07-02] MEDS ORDERED: VANCOMYCIN LEVEL ONE (09:00)
[2022-07-02] MEDS: INSULIN, Rapid-Acting PUMP SCH ×4 (09:02→21:31)
[2022-07-02] MEDS: DOCUSATE SODIUM 100 MG CAP PO SCH ×2 (09:29→20:46)
[2022-07-02] MEDS: cefTRIAXone SODIUM 2,000 MG in DEXTROSE 5% 50 ML IV SCH (15:29)
[2022-07-02] MEDS: ATORVASTATIN 40 MG TAB PO SCH (20:42)
[2022-07-02] MEDS: SENNA 8.6 MG TAB PO SCH (20:45)
[2022-07-03] MEDS: oxyCODONE HCL IR 5 MG TAB (IMMEDIATE RELEASE) PO PRN ×2 (05:19→09:17)
[2022-07-03] MEDS: ACETAMINOPHEN 500 MG TAB PO SCH ×3 (05:19→21:03)
[2022-07-03] MEDS: LEVOTHYROXINE SODIUM 175 MCG TABLET PO SCH (05:19)
--- NOTE | 2022-07-03 08:14 | Hospitalist Progress Note ---
Date of Service July 03, 2022 Assessment & Plan (1) Status post below-knee amputation of left lower extremity: Plan: Patient is currently afebrile, hemodynamically stable, and stable on RA -Pain control, antibiotics, DVT PPX, and IV fluids per the primary team -- plan to continue abx through weekend, planning for [facility] on Monday Changed Protonix order to scheduled daily for stress ulcer prophylaxis POD#[address] Soto on 06/30. EBL 50cc Continuing Ceftriaxone through weekend (was on Vanco/Ceftriaxone) Hgb stable on repeat Pain control, bowel regimen --> working on bowels as hadn't moved since Monday (on iron BID), I added colace BID 07/02, rec supp this afternoon if no BM DVT proph - Lovenox SQ ordered by primary -- to continue at d/c BSGs much improved however had some lows this morning, issues with his pump/discrepancy. Asking his niece to see about new supplies but asked pharmacy to place on novolog/SSI while inpatient in the meantime PT/OT consults -> CM following, planning for [facility] on Monday (2) Diabetes type 1, controlled: Plan: Patient has his own insulin pump currently in place however continued issues with sensor reading and our glucometer was using our glucometer to cover his sugars but appears now issues possibly with pump and asking niece to bring in supplies pharmacy consulted for glycemic control -- typically difficult to control on our sliding scale, hopefully once has usual supplies/working correctly will be able to transition back may expect some spikes w/ 1gm iv mag for today to assist w/ BM given mag 1.7 on labs Monitor (3) Peripheral arterial disease: Plan: Prior history of B/L iliac artery stents (2014), R common/external iliac (2017), R common femoral endarterectomy (11/2018) with bovine patch. Left femoral to PT composite bypass graft (06/2020). S/P L fem-anterior tibial bypass with Dr Eason on 11/19/21, now w/ L BKA Continue Plavix/ASA daily (4) COPD (chronic obstructive pulmonary disease): Plan: Does not appear to be on breathing treatments outpatient , stable on RA Albuterol prn wheezing available (5) CAD (coronary artery disease): Plan: S/P CABG x 1 (2015). Aortic Stenosis S/P porcine AV Continue ASA, metoprolol, Plavix, statin (6) Hypothyroidism: Plan: -Continue levothyroxine 175mcg TSH checked for low Na (although close for normal w/ correction for Glu, also on chlorthialidone) --> low 0.026 difficult in acute illness -- rec repeating outpatient in 4 weeks to ensure stable/adjustments pending repeat. Had been normal this summer (7) Hypertension: Plan: Continue metoprolol tartrate 12.5mg BID, hygroton 25mg resumed morning 07/01 but dehydrated on exam and ordered IVF 07/02 and this was placed on hold BP stable 162/71, slight dehydration but improved on exam. No headache/blurry vision --> push PO fluids Labs from AM w/ K 3.3, Cl 97 PO K ordered, changed PO supplementation to powder per patient request for his usual home dosing Planning to resume chlorthalidone in AM pending labs/hydration status (8) Dyslipidemia: Plan: -Continue statin (9) Anemia: Plan: acute on chronic, blood loss from surgery remains on PO iron BID prior low folate during prior admit, remains on supplementation Also had prior borderline B12 -- repeat wnl repeat hgb 8.6 from 8.9 after drain pulled/IVF overnight, acceptable No bleeding reported, remains on iron BID (10) Vitamin deficiency: Plan: prior lows 19, repeated to ensure no additional replacement for wound healing/etc given low Ca Vit D returned 12.4 -- ergocalciferol x 1 provided, would continue weekly, repeat labs outpatient Plan continued inpatient stay switching to sliding scale/novolog while inpatient/waiting for new supplies bowel regimen Hospitalist will follow along in AM/monitor labs/hydration/resume diuretics if labs/BP stable Call with any questions/concerns, but suspect stable for dc in AM, especially if able to get back on own pump with new supplies Admission and Anticipated Discharge Date Admission Date: June 30, 2022 Subjective Eval this morning, issues with sensor reading low, asking his family to see if able to bring in new supplies. Otherwise, pain decreased slightly and controlled with ordered medications. Passing gas but still without BM. Abd distended, but non-tender to palpation. IV site in R wrist/am needs changed, continued abx through the weekend and planning for [facility] for tomorrow. Discussed pushing oral fluids and would continue to hold chlorthalidone for today. patient denies any fever/chills, chest pain, shortness of breath, headache, nausea, vomiting, or abdominal pain. Questions/concerns addressed at this time. Review of Systems Review of Systems: All systems reviewed & are unremarkable except as noted in HPI & below Physical Exam Physical Exam: General: WD chronically ill appearing male sitting in bed, NAD HEENT: head normocephalic, atraumatic, mm DRY, trachea midline without deviation Resp: CTAB, no w/c/r, on room air CV: RRR, systolic murmur, no rub/gallop, cap refill wnl GI: +BS, soft nontender MSK/Neuro: follows commands, no focal deficit/slurred speech dressing/splint to LLE c/d/i, minimal tenderness to palpation, ERIC wrap in place, hemovac with scant bloody drainage s/p BKA on the RIGHT, prior incision looks great/well healed Psych: Aox3, cooperative, pleasant Results & Data Results & Data ([facility]) Vital Signs (Past 12 Hours) Vital Signs Temp Pulse Pulse Resp BP Pulse Ox O2 Del Method 07/03/22 07:33 36.6 C 76 18 162/71 H 96 Room Air 07/02/22 22:14 37.0 C 70 16 128/73 92 Room Air 07/02/22 20:30 36.8 C 72 16 154/78 H 97 Room Air Laboratory Results 07/03/22 07/03/22 07/03/22 Range/Units 12:09 11:27 09:46 Sodium (136-145) mmol/L Potassium (3.5-5.1) mmol/L Chloride (98-107) mmol/L Carbon Dioxide (21-32) mmol/L Anion Gap (3-11) BUN (6-23) mg/dl Creatinine (0.6-1.4) mg/dl Est Cr Clr Drug Dosing ml/min Est GFR ( Amer) ml/min Est GFR (Non-Af Amer) ml/min BUN/Creatinine Ratio (10-20) Glucose (70-99(Fasting)) mg/dl POC Glucose 92 70 95 (70-99) mg/dl Calcium (8.5-10.1) mg/dl Magnesium (1.7-2.4) mg/dl 10/23/22 10/23/22 10/23/22 Range/Units 08:22 08:19 08:13 Sodium (136-145) mmol/L Potassium (3.5-5.1) mmol/L Chloride (98-107) mmol/L Carbon Dioxide (21-32) mmol/L Anion Gap (3-11) BUN (6-23) mg/dl Creatinine (0.6-1.4) mg/dl Est Cr Clr Drug Dosing ml/min Est GFR ( Amer) ml/min Est GFR (Non-Af Amer) ml/min BUN/Creatinine Ratio (10-20) Glucose (70-99(Fasting)) mg/dl POC Glucose 68 L* 62 L* (70-99) mg/dl Calcium (8.5-10.1) mg/dl Magnesium 1.7 (1.7-2.4) mg/dl 07/03/22 07/02/22 07/02/22 Range/Units 08:13 20:43 17:16 Sodium 137 (136-145) mmol/L Potassium 3.3 L (3.5-5.1) mmol/L Chloride 97 L (98-107) mmol/L Carbon Dioxide 35 H (21-32) mmol/L Anion Gap 5 (3-11) BUN 7 (6-23) mg/dl Creatinine 0.68 (0.6-1.4) mg/dl Est Cr Clr Drug Dosing 104.8 ml/min Est GFR ( Amer) 116.2 ml/min Est GFR (Non-Af Amer) 100.2 ml/min BUN/Creatinine Ratio 10.3 (10-20) Glucose 64 L (70-99(Fasting)) mg/dl POC Glucose 113 H 151 H (70-99) mg/dl Calcium 8.4 L (8.5-10.1) mg/dl Magnesium (1.7-2.4) mg/dl PG Care Time/CCT Total # of Minutes Spent Total Time Spent with Patient: Total time spent is greater than 50% in coordination of care (as documented) at patient's floor/unit and/or counseling patient: Coding Level of Care Code 25281 Subseq Hosp Care Lvl 3 Diagnoses Status post below-knee amputation of left lower extremity Z89.512 Diabetes type 1, controlled E10.9 Peripheral arterial disease I73.9 COPD (chronic obstructive pulmonary disease) J44.9 CAD (coronary artery disease) I25.10 Associated angina: without angina Coronary Disease-Associated Artery/Lesion type: [place] artery [place] vs. transplanted heart: [place] heart Hypothyroidism E03.9 Hypothyroidism type: unspecified Hypertension I10 Hypertension type: unspecified Dyslipidemia E78.5 Anemia D64.9 Vitamin deficiency E56.9 (1) CAD (coronary artery disease) Associated angina: without angina Coronary Disease-Associated Artery/Lesion type: [place] artery [place] vs. transplanted heart: [place] heart Qualified Code(s): I25.10 - Atherosclerotic heart disease of [place] coronary artery without angina pectoris (2) Hypothyroidism Hypothyroidism type: unspecified Qualified Code(s): E03.9 - Hypothyroidism, unspecified (3) Hypertension Hypertension type: unspecified Qualified Code(s): I10 - Essential (primary) hypertension
[2022-07-03 09:07] LABS: BUN Creatinine Ratio 10.3 (10-20); Calcium 8.4 mg/dl (8.5-10.1); Creatinine Clr Calc Pharmacy 104.8 ml/min; Est GFR (African American) 116.2 ml/min; Est GFR (Non-African American) 100.2 ml/min; Potassium 3.3 mmol/L (3.5-5.1)
[2022-07-03] MEDS ORDERED: POTASSIUM CHLORIDE CRTAB 20 MEQ TABCR PO STA (09:41)
[2022-07-03] MEDS: ADVANCED PROBIOTIC 1250 MG CAPSULE PO SCH (09:55)
[2022-07-03] MEDS: CALCITRIOL 0.25 MCG CAPSULE PO SCH (09:55)
[2022-07-03] MEDS: DOCUSATE SODIUM 100 MG CAP PO SCH ×2 (09:55→21:02)
[2022-07-03] MEDS: ASPIRIN 81 MG ECTAB PO SCH (09:55)
[2022-07-03] MEDS: FOLIC ACID 1 MG TAB PO SCH (09:55)
[2022-07-03] MEDS: METOPROLOL TARTRATE 25 MG TAB PO SCH ×2 (09:55→21:04)
[2022-07-03] MEDS: CLOPIDOGREL BISULFATE 75 MG TAB PO SCH (09:55)
[2022-07-03] MEDS: FERROUS SULFATE 325 MG TAB PO SCH ×2 (09:56→21:03)
[2022-07-03] MEDS: ENOXAPARIN INJ 40 MG/0.4 ML SYR SQ SCH (09:56)
--- NOTE | 2022-07-03 09:59 | Orthopedic Progress Note ---
Date of Service July 03, 2022 Assessment & Plan (1) Status post below-knee amputation of left lower extremity: Plan: Postoperative day [id number] amputation of the left leg with Dr. Soto He may be out of bed with his prosthesis on his right leg and weightbearing as tolerated on the right leg and nonweightbearing on the left. He can use a walker for assistance. PT/OT as ordered. Continue insulin pump for glycemic consult as per patient preference. Continue Plavix. Continue Lovenox 40 mg SQ daily for the next 2 to 4 weeks for DVT prophylaxis. Home medications resumed. Vital signs are stable. Hospitalist consult for postoperative medical management. Appreciate assistance. IV vancomycin and Rocephin continue for a few days during his inpatient stay. Diabetic diet as ordered. He is trying to get another glucose monitor from home. Case management for disposition needs. Covering for Dr. Soto over the weekend. Admission and Anticipated Discharge Date Admission Date: June 30, 2022 Subjective Doing alright, has more feeling on this side then previously on the other side. Oral pain medicine is helping. Review of Systems Review of Systems: All systems reviewed & are unremarkable except as noted in HPI & below Physical Exam Physical Exam: LLE: Dressing is clean, dry, intact. Results & Data ([facility]) Vital Signs (Past 12 Hours) Vital Signs Temp Pulse Resp BP Pulse Ox O2 Del Method 07/03/22 07:33 36.6 C 76 18 162/71 H 96 Room Air 07/02/22 22:14 37.0 C 70 16 128/73 92 Room Air Laboratory Results 07/03/22 07/03/22 07/03/22 Range/Units 09:46 08:22 08:19 Sodium (136-145) mmol/L Potassium (3.5-5.1) mmol/L Chloride (98-107) mmol/L Carbon Dioxide (21-32) mmol/L Anion Gap (3-11) BUN (6-23) mg/dl Creatinine (0.6-1.4) mg/dl Est Cr Clr Drug Dosing ml/min Est GFR ( Amer) ml/min Est GFR (Non-Af Amer) ml/min BUN/Creatinine Ratio (10-20) Glucose (70-99(Fasting)) mg/dl POC Glucose 95 68 L* 62 L* (70-99) mg/dl Calcium (8.5-10.1) mg/dl 07/03/22 07/02/22 07/02/22 Range/Units 08:13 20:43 17:16 Sodium 137 (136-145) mmol/L Potassium 3.3 L (3.5-5.1) mmol/L Chloride 97 L (98-107) mmol/L Carbon Dioxide 35 H (21-32) mmol/L Anion Gap 5 (3-11) BUN 7 (6-23) mg/dl Creatinine 0.68 (0.6-1.4) mg/dl Est Cr Clr Drug Dosing 104.8 ml/min Est GFR ( Amer) 116.2 ml/min Est GFR (Non-Af Amer) 100.2 ml/min BUN/Creatinine Ratio 10.3 (10-20) Glucose 64 L (70-99(Fasting)) mg/dl POC Glucose 113 H 151 H (70-99) mg/dl Calcium 8.4 L (8.5-10.1) mg/dl 07/02/22 07/02/22 Range/Units 12:25 10:28 Sodium (136-145) mmol/L Potassium (3.5-5.1) mmol/L Chloride (98-107) mmol/L Carbon Dioxide (21-32) mmol/L Anion Gap (3-11) BUN (6-23) mg/dl Creatinine (0.6-1.4) mg/dl Est Cr Clr Drug Dosing ml/min Est GFR ( Amer) ml/min Est GFR (Non-Af Amer) ml/min BUN/Creatinine Ratio (10-20) Glucose (70-99(Fasting)) mg/dl POC Glucose 103 H 73 (70-99) mg/dl Calcium (8.5-10.1) mg/dl
[2022-07-03] MEDS: NYSTATIN POWDER 15GM BTL EXT SCH ×2 (10:03→21:05)
[2022-07-03] MEDS: INSULIN, Rapid-Acting PUMP SCH (10:12)
[2022-07-03] MEDS: POTASSIUM CHLORIDE PWD 20 MEQ PACK PO SCH ×2 (10:32→21:55)
[2022-07-03] MEDS ORDERED: LANTUS PER UNIT CHARGE SQ ONE (12:30)
[2022-07-03] MEDS ORDERED: MAGNESIUM SULFATE / D5W 1 GM/100 ML BAG IV ONE (13:44)
--- NOTE | 2022-07-03 13:56 | Pharmacy Report ---
Pharmacy Glycemic Short Note 2 - Date of Service July 03, 2022 - Glycemic Short BSG Results (Last 24 hours): 07/02/22 07/02/22 07/03/22 17:16 20:43 08:13 Glucose 64 L POC Glucose 151 H 113 H 07/03/22 07/03/22 07/03/22 08:19 08:22 09:46 Glucose POC Glucose 62 L* 68 L* 95 07/03/22 07/03/22 11:27 12:09 Glucose POC Glucose 70 92 OUTPATIENT ANTIDIABETIC REGIMEN: * Novolog insulin pump * Basal: 1.65 unit/hr * Goal range: 90-150 mg/dL, CF of 30 and insulin:carbohydrate ratio of 6 HbA1c: 7.4% (05/23/22) ASSESSMENT: * TK is a 67 year old male POD #3 s/p left BKA * Pharmacy initially consulted for glycemic management, but this consult was placed on hold due to patient using own insulin pump * On afternoon of 07/03, RN notified pharmacist/hospitalist of malfunctioning in sulin pump w/ multiple episodes of hypoglycemia * Decision was made to disconnect insulin pump and to manage with SC basal/bolus insulin regimen * RN reports patient has maintained good appetite * Will give slight reduction of daily basal dose provided by pump in form of SC Lantus * Initial Novolog parameters based on prior inpatient BSG data PLAN FOR INPATIENT GLYCEMIC CONTROL: * Hold outpatient oral diabetes medications * Basal insulin * Lantus 35 units SQ x 1 at time of pump discontinuation * Reassess in AM * Bolus insulin * NovoLog per scale ACHS or Q6hrs while NPO * Goal Range: Low 110 mg/dL - High 140 mg/dL * Correction Factor: 30 mg/dL/unit * Nutritional / Prandial insulin per carb ratio of 1 unit per 5 grams CHO consumed
[2022-07-03] MEDS ORDERED: ERGOCALCIFEROL 50,000 UNITS 1250 MCG CAP PO SCH (14:00)
[2022-07-03] MEDS: INSULIN ASPART PER UNIT SC SCH ×2 (17:49→21:01)
[2022-07-03] MEDS: cefTRIAXone SODIUM 2,000 MG in DEXTROSE 5% 50 ML IV SCH (18:25)
[2022-07-03] MEDS: ATORVASTATIN 40 MG TAB PO SCH (21:03)
[2022-07-03] MEDS: SENNA 8.6 MG TAB PO SCH (21:05)
[2022-07-04] MEDS: INSULIN ASPART PER UNIT SC SCH ×3 (00:18→08:39)
[2022-07-04] MEDS: oxyCODONE HCL IR 5 MG TAB (IMMEDIATE RELEASE) PO PRN (01:04)
[2022-07-04] MEDS: INSULIN, Rapid-Acting PUMP SCH ×4 (02:46→20:54)
[2022-07-04] MEDS: ACETAMINOPHEN 500 MG TAB PO SCH ×3 (06:14→20:26)
[2022-07-04] MEDS: LEVOTHYROXINE SODIUM 175 MCG TABLET PO SCH (06:14)
[2022-07-04 08:18] LABS: BUN Creatinine Ratio 14.7 (10-20); Calcium 8.4 mg/dl (8.5-10.1); Creatinine Clr Calc Pharmacy 104.8 ml/min; Est GFR (African American) 116.2 ml/min; Est GFR (Non-African American) 100.2 ml/min; Magnesium 1.8 mg/dl (1.7-2.4); Potassium 4.6 mmol/L (3.5-5.1)
--- NOTE | 2022-07-04 08:32 | Hospitalist Progress Note ---
Date of Service July 04, 2022 Assessment & Plan (1) Status post below-knee amputation of left lower extremity: Plan: Patient is currently afebrile, hemodynamically stable, and stable on RA -Pain control, antibiotics, DVT PPX, and IV fluids per the primary team -- plan to continue abx through weekend, planning for [facility] on Monday Changed Protonix order to scheduled daily for stress ulcer prophylaxis POD#[address] Soto on 06/30. EBL 50cc Continuing Ceftriaxone through weekend (was on Vanco/Ceftriaxone) Hgb stable on repeat Pain control, bowel regimen --> working on bowels as hadn't moved since Monday (on iron BID), I added colace BID 07/02, rec supp this afternoon if no BM. Agreeable to suppository this afternoon DVT proph - Lovenox SQ ordered by primary -- to continue at d/c changed patient back to his home insulin pump 07/04 given hyperglycemia off his pump and BSGs improved had actually gone low this afternoon, given juices messaged DM educator who turned off IQ feature on Monday as pump should stop w/ lows. Patient unable to reduce his basal. could have lingering effects from the lantus given yesterday but has been 24 hours, per DM educator could last 36 hours in some she will be up this afternoon to ensure functioning properly , in meantime verifying BSgs w/ our glucometer for 24 hours PT/OT consulted --- [facility]. rec [facility] for closer monitoring bsgs given recent issues w/ home supplies CM following (2) Diabetes type 1, controlled: Plan: Patient has his own insulin pump currently in place however continued issues with sensor reading and our glucometer was using our glucometer to cover his sugars but appears now issues possibly with pump and asking nigary to bring in supplies pharmacy consulted for glycemic control -- typically difficult to control on our sliding scale, hopefully once has usual supplies/working correctly will be able to transition back BSGs again spiked off his own pump but [facility] was able to bring new supplies Transitioned back to pump as above -- see above for DM educator to stop by, should be by this afternoon BSGs most recently 72 (3) Peripheral arterial disease: Plan: Prior history of B/L iliac artery stents (2015), R common/external iliac (2018), R common femoral endarterectomy (11/2018) with bovine patch. Left femoral to PT composite bypass graft (06/2020). S/P L fem-anterior tibial bypass with Dr Eason on 11/19/21, now w/ L BKA Continue Plavix/ASA daily (4) COPD (chronic obstructive pulmonary disease): Plan: Does not appear to be on breathing treatments outpatient , stable on RA Albuterol prn wheezing available (5) CAD (coronary artery disease): Plan: S/P CABG x 1 (2015). Aortic Stenosis S/P porcine AV Continue ASA, metoprolol, Plavix, statin (6) Hypothyroidism: Plan: -Continue levothyroxine 175mcg TSH checked for low Na (although close for normal w/ correction for Glu, also on chlorthialidone) --> low 0.026 difficult in acute illness -- rec repeating outpatient in 4 weeks to ensure stable/adjustments pending repeat. Had been normal this summer (7) Hypertension: Plan: Continue metoprolol tartrate 12.5mg BID, hygroton 25mg resumed morning 07/01 but dehydrated on exam and ordered IVF 07/02 and this was placed on hold BP stable, improvement in hydration Chlorthalidone to be resumed tomorrow (8) Dyslipidemia: Plan: Continue statin (9) Anemia: Plan: acute on chronic, blood loss from surgery remains on PO iron BID prior low folate during prior admit, remains on supplementation Also had prior borderline B12 -- repeat wnl repeat hgb 8.6 from 8.9 after drain pulled/IVF overnight, acceptable No bleeding reported, remains on iron BID (10) Vitamin deficiency: Plan: prior lows 19, repeated to ensure no additional replacement for wound healing/etc given low Ca Vit D returned 12.4 -- ergocalciferol x 1 provided, would continue weekly, repeat labs outpatient Plan continued inpatient stay working on GCM w/ DM educator planning for rehab once able, hopefully [facility]ist service will follow along Admission and Anticipated Discharge Date Admission Date: June 30, 2022 Subjective Patient evaluated this morning. Doing well. Niece brought new insulin pump supplies -- discussed with pharmacy and will switch back over this morning. Caught RN in [place] prior to AM glargine 38u being given and will plan switch back over this am. Passing lots of gas, no BM. Had gotten any MOM yesterday. Discussed would ask RN to administer. If no BM this afternoon would rec suppository or enema. he would like to avoid enema but agreeable to suppository if no BM this afternoon. No fever/chills, chest pain, shortness of breath, lightheadedness/dizziness. MM improved, less dehydrated. Plan to resume his chlorthalidone in AM if continues to push oral fluids but would want to avoid further dehydration. Wanting [facility] at rehab. Agreed that would be best to ensure sugars controlled. Discussed with CM -- [facility] as first choice, awaiting insurance d etermination. Questions/concerns addressed at this time. Physical Exam Physical Exam: General: WD chronically ill appearing male sitting in bed, NAD HEENT: head normocephalic, atraumatic, mm improved, trachea midline without deviation Resp: CTAB, no w/c/r, on room air CV: RRR, systolic murmur, no rub/gallop, cap refill wnl GI: +BS, soft nontender MSK/Neuro: follows commands, no focal deficit/slurred speech dressing/splint to LLE c/d/i, minimal tenderness to palpation, ERIC wrap in place, hemovac with scant bloody drainage s/p BKA on the RIGHT, prior incision looks great/well healed Psych: Aox3, cooperative, pleasant Results & Data Results & Data ([facility]) Vital Signs (Past 12 Hours) Vital Signs Temp Pulse Resp BP Pulse Ox O2 Del Method 07/04/22 07:46 36.7 C 70 16 126/75 95 Room Air 07/03/22 20:44 36.6 C 73 16 105/65 97 Room Air Laboratory Results 07/04/22 07/04/22 07/04/22 Range/Units 07:40 06:52 04:06 Sodium 137 (136-145) mmol/L Potassium 4.6 D (3.5-5.1) mmol/L Chloride 99 (98-107) mmol/L Carbon Dioxide 34 H (21-32) mmol/L Anion Gap 4 (3-11) BUN 10 (6-23) mg/dl Creatinine 0.68 (0.6-1.4) mg/dl Est Cr Clr Drug Dosing 104.8 ml/min Est GFR ( Amer) 116.2 ml/min Est GFR (Non-Af Amer) 100.2 ml/min BUN/Creatinine Ratio 14.7 (10-20) Glucose 181 H (70-99(Fasting)) mg/dl POC Glucose 206 H 125 H (70-99) mg/dl Calcium 8.4 L (8.5-10.1) mg/dl Magnesium 1.8 (1.7-2.4) mg/dl 07/03/22 07/03/22 07/03/22 Range/Units 23:54 20:42 17:19 Sodium (136-145) mmol/L Potassium (3.5-5.1) mmol/L Chloride (98-107) mmol/L Carbon Dioxide (21-32) mmol/L Anion Gap (3-11) BUN (6-23) mg/dl Creatinine (0.6-1.4) mg/dl Est Cr Clr Drug Dosing ml/min Est GFR ( Amer) ml/min Est GFR (Non-Af Amer) ml/min BUN/Creatinine Ratio (10-20) Glucose (70-99(Fasting)) mg/dl POC Glucose 119 H 270 H 391 H* (70-99) mg/dl Calcium (8.5-10.1) mg/dl Magnesium (1.7-2.4) mg/dl 07/03/22 07/03/22 07/03/22 Range/Units 17:18 12:09 11:27 Sodium (136-145) mmol/L Potassium (3.5-5.1) mmol/L Chloride (98-107) mmol/L Carbon Dioxide (21-32) mmol/L Anion Gap (3-11) BUN (6-23) mg/dl Creatinine (0.6-1.4) mg/dl Est Cr Clr Drug Dosing ml/min Est GFR ( Amer) ml/min Est GFR (Non-Af Amer) ml/min BUN/Creatinine Ratio (10-20) Glucose (70-99(Fasting)) mg/dl POC Glucose 389 H* 92 70 (70-99) mg/dl Calcium (8.5-10.1) mg/dl Magnesium (1.7-2.4) mg/dl 07/03/22 07/03/22 07/03/22 Range/Units 09:46 08:13 08:13 Sodium 137 (136-145) mmol/L Potassium 3.3 L (3.5-5.1) mmol/L Chloride 97 L (98-107) mmol/L Carbon Dioxide 35 H (21-32) mmol/L Anion Gap 5 (3-11) BUN 7 (6-23) mg/dl Creatinine 0.68 (0.6-1.4) mg/dl Est Cr Clr Drug Dosing 104.8 ml/min Est GFR ( Amer) 116.2 ml/min Est GFR (Non-Af Amer) 100.2 ml/min BUN/Creatinine Ratio 10.3 (10-20) Glucose 64 L (70-99(Fasting)) mg/dl POC Glucose 95 (70-99) mg/dl Calcium 8.4 L (8.5-10.1) mg/dl Magnesium 1.7 (1.7-2.4) mg/dl PG Care Time/CCT Total # of Minutes Spent Total Time Spent with Patient: Total time spent is greater than 50% in coordination of care (as documented) at patient's floor/unit and/or counseling patient: Coding Level of Care Code 39091 Subseq Hosp Care Lvl 3 Diagnoses Status post below-knee amputation of left lower extremity Z89.512 Diabetes type 1, controlled E10.9 Peripheral arterial disease I73.9 COPD (chronic obstructive pulmonary disease) J44.9 CAD (coronary artery disease) I25.10 Associated angina: without angina Coronary Disease-Associated Artery/Lesion type: [place] artery [place] vs. transplanted heart: [place] heart Hypothyroidism E03.9 Hypothyroidism type: unspecified Hypertension I10 Hypertension type: unspecified Dyslipidemia E78.5 Anemia D64.9 Vitamin deficiency E56.9 (1) CAD (coronary artery disease) Associated angina: without angina Coronary Disease-Associated Artery/Lesion type: [place] artery [place] vs. transplanted heart: [place] heart Qualified Code(s): I25.10 - Atherosclerotic heart disease of [place] coronary artery without angina pectoris (2) Hypothyroidism Hypothyroidism type: unspecified Qualified Code(s): E03.9 - Hypothyroidism, unspecified (3) Hypertension Hypertension type: unspecified Qualified Code(s): I10 - Essential (primary) hypertension
[2022-07-04] MEDS: METOPROLOL TARTRATE 25 MG TAB PO SCH ×2 (08:38→20:25)
[2022-07-04] MEDS: POTASSIUM CHLORIDE PWD 20 MEQ PACK PO SCH (08:38)
[2022-07-04] MEDS: ADVANCED PROBIOTIC 1250 MG CAPSULE PO SCH (08:38)
[2022-07-04] MEDS: DOCUSATE SODIUM 100 MG CAP PO SCH ×2 (08:38→20:26)
[2022-07-04] MEDS: FOLIC ACID 1 MG TAB PO SCH (08:38)
[2022-07-04] MEDS: ASPIRIN 81 MG ECTAB PO SCH (08:38)
[2022-07-04] MEDS: FERROUS SULFATE 325 MG TAB PO SCH ×2 (08:38→20:24)
[2022-07-04] MEDS: CLOPIDOGREL BISULFATE 75 MG TAB PO SCH (08:38)
[2022-07-04] MEDS: NYSTATIN POWDER 15GM BTL EXT SCH ×2 (08:43→20:26)
[2022-07-04] MEDS: ENOXAPARIN INJ 40 MG/0.4 ML SYR SQ SCH (08:43)
[2022-07-04] MEDS: CALCITRIOL 0.25 MCG CAPSULE PO SCH (08:44)
--- NOTE | 2022-07-04 09:16 | Progress Notes ---
Mr. Chowdhury is resting comfortably in bed. He does have some intermittent left residual limb pain. He has been up with physical therapy. Placement at [facility] versus [facility] is pending and he is fi ne with either one. He has been afebrile. His vital signs are stable. PRP is noted. Dressing jnoes ge. The residual limb is clean and dry without hematoma formation. There is no active bleeding and swelling is minimal. All skin edges are viable. At this time, new dressing and the extension splint were applied. Well padded. Mr. Chowdhury is postop day #4 status post a left leg below-knee amputation for peripheral vascular disease and peripheral artery disease and diabetic foot ulcer. Continue PT a nd OT. He can weight bear as tolerated on the right leg with his prosthesis. Stop the Rocephin toda y. Continue Lovenox for DVT prophylaxis. Await placement. Pain control. Job ID: [id number]
[2022-07-04] MEDS ORDERED: bisacodyL 10 MG SUPP PR ONE (09:31)
[2022-07-04] MEDS ORDERED: INSULIN ASPART 100 UNITS/ML VIAL SC PRN (09:36)
[2022-07-04] MEDS ORDERED: GLUCAGON FOR INJ 1 MG VIAL IM PRN (09:45)
[2022-07-04] MEDS ORDERED: CARBOHYDRATES FOR HYPOGLYCEMIA PO PRN (09:45)
[2022-07-04] MEDS ORDERED: DEXTROSE 50% 50 ML SYRINGE IV PRN (09:45)
[2022-07-04] MEDS ORDERED: GLUCOSE 40% GEL 15 GM TUBE PO PRN (09:45)
[2022-07-04] MEDS ORDERED: GLUCOSE 10 TAB/TUBE PO PRN (09:45)
[2022-07-04] MEDS ORDERED: LANTUS PER UNIT CHARGE SQ ONE (10:00)
--- NOTE | 2022-07-04 11:56 | Pharmacy Report ---
Pharmacy Glycemic Short Note 2 - Date of Service July 04, 2022 - Glycemic Short BSG Results (Last 24 hours): 07/03/22 07/03/22 07/03/22 12:09 17:18 17:19 Glucose POC Glucose 92 389 H* 391 H* 07/03/22 07/03/22 07/04/22 20:42 23:54 04:06 Glucose POC Glucose 270 H 119 H 125 H 07/04/22 07/04/22 06:52 07:40 Glucose 181 H POC Glucose 206 H OUTPATIENT ANTIDIABETIC REGIMEN: * Novolog insulin pump * Basal: 1.65 unit/hr * Goal range: 90-150 mg/dL, CF of 30 and insulin:carbohydrate ratio of 6 HbA1c: 7.4% (05/23/22) ASSESSMENT: 07/04: * Provider discussed restarting the pump today as patient's family brought in new pump supplies. * A one time SC lantus dose was administered yesterday at 1300. Fasting BSG this morning was 206. Discussed with nurse and planned to restart the pump at 1130, however due to some logistical challenges the pump was not turned on until about 1230. * Plan to correlate sensor BSGs with hospital POCs through today and per policy ongoing. Plan was discussed with provider and nurse. Will place glycemic consult on hold while patient managing own pump. 07/03 * TK is a 67 year old male POD #3 s/p left BKA * Pharmacy initially consulted for glycemic management, but this consult was placed on hold due to patient using own insulin pump * On afternoon of 07/03, RN notified pharmacist/hospitalist of malfunctioning insulin pump w/ multiple episodes of hypoglycemia * Decision was made to disconnect insulin pump and to manage with SC basal/bolus insulin regimen * RN reports patient has maintained good appetite * Will give slight reduction of daily basal dose provided by pump in form of SC Lantus * Initial Novolog parameters based on prior inpatient BSG data PLAN FOR INPATIENT GLYCEMIC CONTROL: * Patient to restart home insulin pump
[2022-07-04] MEDS: SENNA 8.6 MG TAB PO SCH (20:25)
[2022-07-04] MEDS: ATORVASTATIN 40 MG TAB PO SCH (20:26)
[2022-07-05] MEDS: oxyCODONE HCL IR 5 MG TAB (IMMEDIATE RELEASE) PO PRN ×2 (02:53→09:15)
[2022-07-05] MEDS: ACETAMINOPHEN 500 MG TAB PO SCH ×3 (05:15→20:39)
[2022-07-05] MEDS: LEVOTHYROXINE SODIUM 175 MCG TABLET PO SCH (05:16)
[2022-07-05 07:19] LABS: Hematocrit (blood only) 29.2 % (40.1-51.0); Hemoglobin 9.5 g/dl (14.0-18.0); Mean Corpuscular Hgb Conc 32.5 g/dL (32.0-36.0); Mean Corpuscular Volume 86.1 fL (80.0-100.0); Mean Platelet Volume 9.5 fL (9.4-12.4); Platelet Count 439 K/uL (130-400); RDW Coefficient of Variation 12.1 % (11.5-14.5); RDW Standard Deviation 37.1 fL (36.4-46.3); Red Blood Count 3.39 M/uL (4.63-6.08)
[2022-07-05 07:44] LABS: Albumin Globulin Ratio 0.7 (0.9-2); Albumin Level 2.8 gm/dl (3.4-5.0); BUN Creatinine Ratio 14.1 (10-20); Bilirubin,Total 0.3 mg/dl (0.2-1.0); Calcium 8.8 mg/dl (8.5-10.1); Creatinine Clr Calc Pharmacy 111.3 ml/min; Est GFR (African American) 119.1 ml/min; Est GFR (Non-African American) 102.7 ml/min; Globulin 3.9 gm/dl (2.5-4.0); Magnesium 1.7 mg/dl (1.7-2.4); Potassium 3.8 mmol/L (3.5-5.1); Total Protein 6.7 gm/dl (6.0-8.3)
[2022-07-05] MEDS: FERROUS SULFATE 325 MG TAB PO SCH ×2 (08:00→20:37)
[2022-07-05] MEDS: METOPROLOL TARTRATE 25 MG TAB PO SCH ×2 (08:01→20:35)
--- NOTE | 2022-07-05 08:17 | Hospitalist Progress Note ---
Date of Service July 05, 2022 Assessment & Plan (1) Status post below-knee amputation of left lower extremity: Plan: Patient is currently afebrile, hemodynamically stable, and stable on RA -Pain control, antibiotics, DVT PPX, and IV fluids per the primary team -- plan to continue abx through weekend, planning for [facility] Monday Changed Protonix order to scheduled daily for stress ulcer prophylaxis POD#[address] Soto on 06/30. EBL 50cc Continued Ceftriaxone through weekend (was on Vanco/Ceftriaxone), since discontinued Hgb stable on repeat, improved to 9.5 WBC elevated to 15k. NO WBC checked post-op, could be reactive from surgery/ hyperglycemia. Afebrile. Could check procal to see about infectious, however patient w/ baseline anemia and could be falsely elevated If any fevers or chills reported would check urine/cxr however no symptoms reported. Could have been reactive from post-op ileus as well as hadn't moved his bowels for 5 days Pain control, bowel regimen --> LARGE BM 07/04 into 07/05, continue bowel regimen DVT proph - Lovenox SQ ordered by primary -- to continue at d/c changed patient back to his home insulin pump 07/04 given hyperglycemia off his pump and BSGs improved had actually gone low in afternoon, given juices, messaged DM educator who came up in afternoon. Ensured IQ turned on so that pump would not continue to administer with low values BSGs improved --> patient did have his pump shut off several times overnight 07/04 --> discussed with DM educator who decreased his basal rate to 1.5 from 1.65 and changed carb ratio to 1:6 to 1:7 She also provided contact info to contact her if issues at rehab. BSGs improved PT/OT consulted --- [facility] back up. rec [facility] for closer monitoring bsgs given recent issues w/ home supplies. M edically stable if sugars acceptable to go to rehab. Monitor for any fevers CM following (2) Diabetes type 1, controlled: Plan: Patient has his own insulin pump currently in place however continued issues with sensor reading and our glucometer was using our glucometer to cover his sugars but appears now issues possibly with pump and asking niece to bring in supplies pharmacy consulted for glycemic control -- typically difficult to control on our sliding scale, hopefully once has usual supplies/working correctly will be able to transition back BSGs again spiked off his own pump but [facility] was able to bring new supplies Transitioned back to pump as above -- decreased his basal rate to 1.5 from 1.65 and changed carb ratio to 1:6 to 1:7 on 07/05 BSGs stable Conitnue to monitor at rehab/increase if hyperglycemic as outpatient Continued monitoring (3) Peripheral arterial disease: Plan: Prior history of B/L iliac artery stents (2014), R common/external iliac (2017), R common femoral endarterectomy (11/2018) with bovine patch. Left femoral to PT composite bypass graft (06/2020). S/P L fem-anterior tibial bypass with Dr Eason on 11/19/21, now w/ L BKA Continue Plavix/ASA daily (4) COPD (chronic obstructive pulmonary disease): Plan: Does not appear to be on breathing treatments outpatient , stable on RA Albuterol prn wheezing available (5) CAD (coronary artery disease): Plan: S/P CABG x 1 (2015). Aortic Stenosis S/P porcine AV Continue ASA, metoprolol, Plavix, statin (6) Hypothyroidism: Plan: -Continue levothyroxine 175mcg TSH checked for low Na (although close for normal w/ correction for Glu, also on chlorthialidone) --> low 0.026 difficult in acute illness -- rec repeating outpatient in 4 weeks to ensure stable/adjustments pending repeat. Had been normal this summer (7) Hypertension: Plan: Continue metoprolol tartrate 12.5mg BID, hygroton 25mg resumed morning 07/01 but dehydrated on exam and ordered IVF 07/02 and this was placed on hold BP stable, improvement in hydration Chlorthalidone resumed this morning 07/05 (8) Dyslipidemia: Plan: Continue statin (9) Anemia: Plan: acute on chronic, blood loss from surgery remains on PO iron BID prior low folate during prior admit, remains on supplementation Also had prior borderline B12 -- repeat wnl Repeat hgb improved 8.6--> 9.5 No bleeding reported, remains on iron BID (10) Vitamin deficiency: Plan: prior lows 19, repeated to ensure no additional replacement for wound healing/etc given low Ca Vit D returned 12.4 -- ergocalciferol x 1 provided, would continue weekly, repeat labs outpatient Plan continued inpatient stay awaiting bed at [facility] Hospitalist service will follow along for chart checks/ensure blood sugars remain acceptable Please call with any questions/concerns Admission and Anticipated Discharge Date Admission Date: June 30, 2022 Subjective Patient evaluated this morning, around lunch. Doing well, DM educator had seen and his pump had shut off multiple times overnight and we have reduced the basal dose to 1.5 from 1.65. She will be available once at rehab as well if we need to make adjustments to increase back to his prior dose. Also loosened carb ratio. Pain controlled with ordered medications. +LARGE BM, got prune juice with butter. No fever/chills, no chest pain/shortness of breath, abdominal pain, nausea or vomiting. Questions/concerns addressed at this time. Review of Systems Review of Systems: All systems reviewed & are unremarkable except as noted in HPI & below Physical Exam Physical Exam: General: WD chronically ill appearing male sitting in bed, NAD HEENT: head normocephalic, atraumatic, mm improved, trachea midline without deviation Resp: CTAB, no w/c/r, on room air CV: RRR, systolic murmur, no rub/gallop, cap refill wnl GI: +BS, soft nontender MSK/Neuro: follows commands, no focal deficit/slurred speech dressing/splint to LLE c/d/i, minimal tenderness to palpation, ERIC wrap in place (DRESSING REPORTED REMOVED BY ORTHO, LOOKS GOOD, NO DRAINAGE) s/p BKA on the RIGHT, prior incision looks great/well healed Psych: Aox3, cooperative, pleasant Results & Data Results & Data ([place]) Vital Signs (Past 12 Hours) Vital Signs Temp Pulse Pulse Resp BP Pulse Ox O2 Del Method 07/05/22 07:51 36.8 C 74 16 131/74 97 Room Air 07/04/22 20:41 36.8 C 77 18 159/76 H 97 Room Air Laboratory Results 07/05/22 07/05/22 07/05/22 Range/Units 11:49 08:06 06:13 WBC (4.8-10.8) K/ul RBC (4.63-6.08) M/uL Hgb (14.0-18.0) g/dl Hct (40.1-51.0) % MCV (80.0-100.0) fL MCH (25.0-34.0) pg MCHC (32.0-36.0) g/dL RDW Std Deviation (36.4-46.3) fL RDW Coeff of Chan (11.5-14.5) % Plt Count (130-400) K/uL MPV (9.4-12.4) fL Sodium 136 (136-145) mmol/L Potassium 3.8 (3.5-5.1) mmol/L Chloride 98 (98-107) mmol/L Carbon Dioxide 33 H (21-32) mmol/L Anion Gap 5 (3-11) BUN 9 (6-23) mg/dl Creatinine 0.64 (0.6-1.4) mg/dl Est Cr Clr Drug Dosing 111.3 ml/min Est GFR ( Amer) 119.1 ml/min Est GFR (Non-Af Amer) 102.7 ml/min BUN/Creatinine Ratio 14.1 (10-20) Glucose 108 H (70-99(Fasting)) mg/dl POC Glucose 143 H 99 (70-99) mg/dl Calcium 8.8 (8.5-10.1) mg/dl Magnesium 1.7 (1.7-2.4) mg/dl Total Bilirubin 0.3 (0.2-1.0) mg/dl AST 17 (13-39) U/L ALT 10 (7-52) U/L Alkaline Phosphatase 103 (34-104) U/L Total Protein 6.7 (6.0-8.3) gm/dl Albumin 2.8 L (3.4-5.0) gm/dl Globulin 3.9 (2.5-4.0) gm/dl Albumin/Globulin Ratio 0.7 L (0.9-2) 07/05/22 07/04/22 07/04/22 Range/Units 06:13 20:40 17:07 WBC 15.60 H (4.8-10.8) K/ul RBC 3.39 L (4.63-6.08) M/uL Hgb 9.5 L (14.0-18.0) g/dl Hct 29.2 L (40.1-51.0) % MCV 86.1 (80.0-100.0) fL MCH 28.0 (25.0-34.0) pg MCHC 32.5 (32.0-36.0) g/dL RDW Std Deviation 37.1 (36.4-46.3) fL RDW Coeff of Chan 12.1 (11.5-14.5) % Plt Count 439 H (130-400) K/uL MPV 9.5 (9.4-12.4) fL Sodium (136-145) mmol/L Potassium (3.5-5.1) mmol/L Chloride (98-107) mmol/L Carbon Dioxide (21-32) mmol/L Anion Gap (3-11) BUN (6-23) mg/dl Creatinine (0.6-1.4) mg/dl Est Cr Clr Drug Dosing ml/min Est GFR ( Amer) ml/min Est GFR (Non-Af Amer) ml/min BUN/Creatinine Ratio (10-20) Glucose (70-99(Fasting)) mg/dl POC Glucose 257 H 123 H (70-99) mg/dl Calcium (8.5-10.1) mg/dl Magnesium (1.7-2.4) mg/dl Total Bilirubin (0.2-1.0) mg/dl AST (13-39) U/L ALT (7-52) U/L Alkaline Phosphatase (34-104) U/L Total Protein (6.0-8.3) gm/dl Albumin (3.4-5.0) gm/dl Globulin (2.5-4.0) gm/dl Albumin/Globulin Ratio (0.9-2) 07/04/22 07/04/22 Range/Units 15:52 15:24 WBC (4.8-10.8) K/ul RBC (4.63-6.08) M/uL Hgb (14.0-18.0) g/dl Hct (40.1-51.0) % MCV (80.0-100.0) fL MCH (25.0-34.0) pg MCHC (32.0-36.0) g/dL RDW Std Deviation (36.4-46.3) fL RDW Coeff of Chan (11.5-14.5) % Plt Count (130-400) K/uL MPV (9.4-12.4) fL Sodium (136-145) mmol/L Potassium (3.5-5.1) mmol/L Chloride (98-107) mmol/L Carbon Dioxide (21-32) mmol/L Anion Gap (3-11) BUN (6-23) mg/dl Creatinine (0.6-1.4) mg/dl Est Cr Clr Drug Dosing ml/min Est GFR ( Amer) ml/min Est GFR (Non-Af Amer) ml/min BUN/Creatinine Ratio (10-20) Glucose (70-99(Fasting)) mg/dl POC Glucose 75 75 (70-99) mg/dl Calcium (8.5-10.1) mg/dl Magnesium (1.7-2.4) mg/dl Total Bilirubin (0.2-1.0) mg/dl AST (13-39) U/L ALT (7-52) U/L Alkaline Phosphatase (34-104) U/L Total Protein (6.0-8.3) gm/dl Albumin (3.4-5.0) gm/dl Globulin (2.5-4.0) gm/dl Albumin/Globulin Ratio (0.9-2) PG Care Time/CCT Total # of Minutes Spent Total Time Spent with Patient: Total time spent is greater than 50% in coordination of care (as documented) at patient's floor/unit and/or counseling patient: Coding Level of Care Code 61971 Subseq Hosp Care Lvl 3 Diagnoses Status post below-knee amputation of left lower extremity Z89.512 Diabetes type 1, controlled E10.9 Peripheral arterial disease I73.9 COPD (chronic obstructive pulmonary disease) J44.9 CAD (coronary artery disease) I25.10 Associated angina: without angina Coronary Disease-Associated Artery/Lesion type: [place] artery [place] vs. transplanted heart: [place] heart Hypothyroidism E03.9 Hypothyroidism type: unspecified Hypertension I10 Hypertension type: unspecified Dyslipidemia E78.5 Anemia D64.9 Vitamin deficiency E56.9 (1) CAD (coronary artery disease) Associated angina: without angina Coronary Disease-Associated Artery/Lesion type: [place] artery [place] vs. transplanted heart: [place] heart Qualified Code(s): I25.10 - Atherosclerotic heart disease of [place] coronary artery without angina pectoris (2) Hypothyroidism Hypothyroidism type: unspecified Qualified Code(s): E03.9 - Hypothyroidism, unspecified (3) Hypertension Hypertension type: unspecified Qualified Code(s): I10 - Essential (primary) hypertension
[2022-07-05] MEDS: CHLORTHALIDONE 25 MG TAB PO SCH (08:28)
[2022-07-05] MEDS: NYSTATIN POWDER 15GM BTL EXT SCH ×2 (08:28→20:38)
[2022-07-05] MEDS: DOCUSATE SODIUM 100 MG CAP PO SCH ×2 (08:28→20:35)
[2022-07-05] MEDS: ADVANCED PROBIOTIC 1250 MG CAPSULE PO SCH (08:29)
[2022-07-05] MEDS: FOLIC ACID 1 MG TAB PO SCH (08:30)
[2022-07-05] MEDS: CALCITRIOL 0.25 MCG CAPSULE PO SCH (08:30)
[2022-07-05] MEDS: CLOPIDOGREL BISULFATE 75 MG TAB PO SCH (08:30)
[2022-07-05] MEDS: ASPIRIN 81 MG ECTAB PO SCH (08:30)
[2022-07-05] MEDS: INSULIN, Rapid-Acting PUMP SCH ×4 (08:39→20:38)
[2022-07-05] MEDS: ENOXAPARIN INJ 40 MG/0.4 ML SYR SQ SCH (09:34)
[2022-07-05] MEDS: MAGNESIUM OXIDE 400 MG TAB PO SCH (10:25)
[2022-07-05] MEDS: POTASSIUM CHLORIDE PWD 20 MEQ PACK PO SCH ×2 (10:25→20:39)
--- NOTE | 2022-07-05 12:29 | Orthopedic Progress Note ---
Date of Service July 05, 2022 Assessment & Plan (1) Status post below-knee amputation of left lower extremity: Plan: Postoperative day [id number] amputation of the left leg with Dr. Soto He may be out of bed with his prosthesis on his right leg and weightbearing as tolerated on the right leg and nonweightbearing on the left. He can use a walker for assistance. PT/OT as ordered. Continue insulin pump for glycemic consult as per patient preference. Continue Plavix. Continue Lovenox 40 mg SQ daily for the next 2 to 4 weeks for DVT prophylaxis. Home medications resumed. Vital signs are stable. Appreciate hospitalist assistance with medical management. Antibiotics discontinued. Diabetic diet as ordered. He is trying to get another glucose monitor from home. Case management for disposition needs. Awaiting for [facility] vs SNF approval, still pending. Dr. Soto present for today's visit. Will re-eval daily during admission. Okay from ortho and medicine standpoint for discharge when bed available or authorization obtained for [facility]. Admission and Anticipated Discharge Date Admission Date: June 30, 2022 Subjective Patient sitting in bed, mild pain in left leg. Splint and dressings clean, dry and intact. States that he's feeling good. Had large BM yesterday. Is awaiting placement. Physical Exam Musculoskeletal: Splint left leg clean, dry and intact. Elevated on a pillow, left in place today. Results & Data ([facility]) Vital Signs (Past 12 Hours) Vital Signs Temp Pulse Resp BP Pulse Ox O2 Del Method 07/05/22 11:24 37.1 C 76 16 113/79 100 Room Air 07/05/22 07:51 36.8 C 74 16 131/74 97 Room Air Laboratory Results 07/05/22 07/05/22 07/05/22 Range/Units 11:49 08:06 06:13 WBC (4.8-10.8) K/ul RBC (4.63-6.08) M/uL Hgb (14.0-18.0) g/dl Hct (40.1-51.0) % MCV (80.0-100.0) fL MCH (25.0-34.0) pg MCHC (32.0-36.0) g/dL RDW Std Deviation (36.4-46.3) fL RDW Coeff of Chan (11.5-14.5) % Plt Count (130-400) K/uL MPV (9.4-12.4) fL Sodium 136 (136-145) mmol/L Potassium 3.8 (3.5-5.1) mmol/L Chloride 98 (98-107) mmol/L Carbon Dioxide 33 H (21-32) mmol/L Anion Gap 5 (3-11) BUN 9 (6-23) mg/dl Creatinine 0.64 (0.6-1.4) mg/dl Est Cr Clr Drug Dosing 111.3 ml/min Est GFR ( Amer) 119.1 ml/min Est GFR (Non-Af Amer) 102.7 ml/min BUN/Creatinine Ratio 14.1 (10-20) Glucose 108 H (70-99(Fasting)) mg/dl POC Glucose 143 H 99 (70-99) mg/dl Calcium 8.8 (8.5-10.1) mg/dl Magnesium 1.7 (1.7-2.4) mg/dl Total Bilirubin 0.3 (0.2-1.0) mg/dl AST 17 (13-39) U/L ALT 10 (7-52) U/L Alkaline Phosphatase 103 (34-104) U/L Total Protein 6.7 (6.0-8.3) gm/dl Albumin 2.8 L (3.4-5.0) gm/dl Globulin 3.9 (2.5-4.0) gm/dl Albumin/Globulin Ratio 0.7 L (0.9-2) 07/05/22 07/04/22 07/04/22 Range/Units 06:13 20:40 17:07 WBC 15.60 H (4.8-10.8) K/ul RBC 3.39 L (4.63-6.08) M/uL Hgb 9.5 L (14.0-18.0) g/dl Hct 29.2 L (40.1-51.0) % MCV 86.1 (80.0-100.0) fL MCH 28.0 (25.0-34.0) pg MCHC 32.5 (32.0-36.0) g/dL RDW Std Deviation 37.1 (36.4-46.3) fL RDW Coeff of Chan 12.1 (11.5-14.5) % Plt Count 439 H (130-400) K/uL MPV 9.5 (9.4-12.4) fL Sodium (136-145) mmol/L Potassium (3.5-5.1) mmol/L Chloride (98-107) mmol/L Carbon Dioxide (21-32) mmol/L Anion Gap (3-11) BUN (6-23) mg/dl Creatinine (0.6-1.4) mg/dl Est Cr Clr Drug Dosing ml/min Est GFR ( Amer) ml/min Est GFR (Non-Af Amer) ml/min BUN/Creatinine Ratio (10-20) Glucose (70-99(Fasting)) mg/dl POC Glucose 257 H 123 H (70-99) mg/dl Calcium (8.5-10.1) mg/dl Magnesium (1.7-2.4) mg/dl Total Bilirubin (0.2-1.0) mg/dl AST (13-39) U/L ALT (7-52) U/L Alkaline Phosphatase (34-104) U/L Total Protein (6.0-8.3) gm/dl Albumin (3.4-5.0) gm/dl Globulin (2.5-4.0) gm/dl Albumin/Globulin Ratio (0.9-2) 07/04/22 07/04/22 Range/Units 15:52 15:24 WBC (4.8-10.8) K/ul RBC (4.63-6.08) M/uL Hgb (14.0-18.0) g/dl Hct (40.1-51.0) % MCV (80.0-100.0) fL MCH (25.0-34.0) pg MCHC (32.0-36.0) g/dL RDW Std Deviation (36.4-46.3) fL RDW Coeff of Chan (11.5-14.5) % Plt Count (130-400) K/uL MPV (9.4-12.4) fL Sodium (136-145) mmol/L Potassium (3.5-5.1) mmol/L Chloride (98-107) mmol/L Carbon Dioxide (21-32) mmol/L Anion Gap (3-11) BUN (6-23) mg/dl Creatinine (0.6-1.4) mg/dl Est Cr Clr Drug Dosing ml/min Est GFR ( Amer) ml/min Est GFR (Non-Af Amer) ml/min BUN/Creatinine Ratio (10-20) Glucose (70-99(Fasting)) mg/dl POC Glucose 75 75 (70-99) mg/dl Calcium (8.5-10.1) mg/dl Magnesium (1.7-2.4) mg/dl Total Bilirubin (0.2-1.0) mg/dl AST (13-39) U/L ALT (7-52) U/L Alkaline Phosphatase (34-104) U/L Total Protein (6.0-8.3) gm/dl Albumin (3.4-5.0) gm/dl Globulin (2.5-4.0) gm/dl Albumin/Globulin Ratio (0.9-2)
[2022-07-05] MEDS: ATORVASTATIN 40 MG TAB PO SCH (20:37)
[2022-07-05] MEDS: SENNA 8.6 MG TAB PO SCH (20:37)
[2022-07-06] MEDS: oxyCODONE HCL IR 5 MG TAB (IMMEDIATE RELEASE) PO PRN ×3 (04:37→19:42)
[2022-07-06] MEDS: LEVOTHYROXINE SODIUM 175 MCG TABLET PO SCH (05:16)
[2022-07-06] MEDS: ACETAMINOPHEN 500 MG TAB PO SCH ×3 (05:16→21:03)
[2022-07-06] MEDS: INSULIN, Rapid-Acting PUMP SCH ×4 (08:15→21:02)
[2022-07-06 08:25] LABS: Hematocrit (blood only) 29.1 % (40.1-51.0); Hemoglobin 9.4 g/dl (14.0-18.0); Mean Corpuscular Hemoglobin 27.9 pg (25.0-34.0); Mean Corpuscular Hgb Conc 32.3 g/dL (32.0-36.0); Mean Corpuscular Volume 86.4 fL (80.0-100.0); Mean Platelet Volume 9.2 fL (9.4-12.4); Platelet Count 458 K/uL (130-400); RDW Coefficient of Variation 12.5 % (11.5-14.5); RDW Standard Deviation 38.9 fL (36.4-46.3); Red Blood Count 3.37 M/uL (4.63-6.08)
[2022-07-06 09:03] LABS: BUN Creatinine Ratio 17.6 (10-20); Calcium 8.5 mg/dl (8.5-10.1); Creatinine Clr Calc Pharmacy 104.8 ml/min; Est GFR (African American) 116.2 ml/min; Est GFR (Non-African American) 100.2 ml/min; Magnesium 1.8 mg/dl (1.7-2.4); Potassium 4.2 mmol/L (3.5-5.1)
[2022-07-06] MEDS: POTASSIUM CHLORIDE PWD 20 MEQ PACK PO SCH ×2 (09:05→19:45)
[2022-07-06] MEDS: ENOXAPARIN INJ 40 MG/0.4 ML SYR SQ SCH (09:06)
[2022-07-06] MEDS: ADVANCED PROBIOTIC 1250 MG CAPSULE PO SCH (09:06)
[2022-07-06] MEDS: FERROUS SULFATE 325 MG TAB PO SCH ×2 (09:07→19:43)
[2022-07-06] MEDS: DOCUSATE SODIUM 100 MG CAP PO SCH ×2 (09:07→19:45)
[2022-07-06] MEDS: FOLIC ACID 1 MG TAB PO SCH (09:07)
[2022-07-06] MEDS: NYSTATIN POWDER 15GM BTL EXT SCH ×2 (09:07→19:45)
[2022-07-06] MEDS: METOPROLOL TARTRATE 25 MG TAB PO SCH ×2 (09:07→19:43)
[2022-07-06] MEDS: CALCITRIOL 0.25 MCG CAPSULE PO SCH (09:07)
[2022-07-06] MEDS: CHLORTHALIDONE 25 MG TAB PO SCH (09:07)
[2022-07-06] MEDS: ASPIRIN 81 MG ECTAB PO SCH (09:07)
[2022-07-06] MEDS: CLOPIDOGREL BISULFATE 75 MG TAB PO SCH (09:07)
[2022-07-06] MEDS: MAGNESIUM OXIDE 400 MG TAB PO SCH (09:07)
--- NOTE | 2022-07-06 10:51 | Orthopedic Progress Note ---
Date of Service July 06, 2022 Assessment & Plan (1) Status post below-knee amputation of left lower extremity: Plan: Postoperative day [id number] amputation of the left leg with Dr. Soto He may be out of bed with his prosthesis on his right leg and weightbearing as tolerated on the right leg and nonweightbearing on the left. He can use a walker for assistance. PT/OT as ordered. Continue insulin pump for glycemic consult as per patient preference. Continue Plavix. Continue Lovenox 40 mg SQ daily for the next 2 to 4 weeks for DVT prophylaxis. Home medications resumed. Vital signs are stable. Appreciate hospitalist assistance with medical management. Antibiotics discontinued. Diabetic diet as ordered. He is trying to get another glucose monitor from home. Case management for disposition needs. Awaiting for [facility] vs SNF approval, still pending. Plan for discharge once authorization to [facility] received. Dr. Soto present for today's visit. Will re-eval daily during admission. Okay from ortho and medicine standpoint for discharge when bed available or authorization obtained for [facility]. Admission and Anticipated Discharge Date Admission Date: June 30, 2022 Subjective Patient is doing well. He does note some pain in his left knee. His pain medicines are helping. He states that occasionally throughout the day. Does seem better than it had been initially. Has been getting out of bed and feels steady on his feet. He is using his prosthesis on his right leg and a walker. Awaiting placement. Physical Exam Musculoskeletal: His dressings were removed today. His incision is clean, dry and intact. Mildly tender with palpation. No active drainage. Mild dried bloody drainage on the dressings. Mild edema. Skin is intact with no evidence of fracture blisters. New dressings and a splint was reapplied. Cap refill is brisk. Results & Data ([facility]) Vital Signs (Past 12 Hours) Vital Signs Temp Pulse Resp BP Pulse Ox O2 Del Method 07/06/22 07:44 36.9 C 76 16 127/74 97 Room Air Laboratory Results 07/06/22 07/06/22 07/06/22 Range/Units 08:57 08:57 07:57 WBC (4.8-10.8) K/ul RBC (4.63-6.08) M/uL Hgb (14.0-18.0) g/dl Hct (40.1-51.0) % MCV (80.0-100.0) fL MCH (25.0-34.0) pg MCHC (32.0-36.0) g/dL RDW Std Deviation (36.4-46.3) fL RDW Coeff of Chan (11.5-14.5) % Plt Count (130-400) K/uL MPV (9.4-12.4) fL Sodium (136-145) mmol/L Potassium (3.5-5.1) mmol/L Chloride (98-107) mmol/L Carbon Dioxide (21-32) mmol/L Anion Gap (3-11) BUN (6-23) mg/dl Creatinine (0.6-1.4) mg/dl Est Cr Clr Drug Dosing ml/min Est GFR ( Amer) ml/min Est GFR (Non-Af Amer) ml/min BUN/Creatinine Ratio (10-20) Glucose (70-99(Fasting)) mg/dl POC Glucose 80 (70-99) mg/dl Calcium (8.5-10.1) mg/dl Magnesium (1.7-2.4) mg/dl C-Reactive Protein Pending Procalcitonin 0.08 (0-0.5) ng/ml 07/06/22 07/06/22 07/05/22 Range/Units 07:12 07:12 20:29 WBC 14.50 H (4.8-10.8) K/ul RBC 3.37 L (4.63-6.08) M/uL Hgb 9.4 L (14.0-18.0) g/dl Hct 29.1 L (40.1-51.0) % MCV 86.4 (80.0-100.0) fL MCH 27.9 (25.0-34.0) pg MCHC 32.3 (32.0-36.0) g/dL RDW Std Deviation 38.9 (36.4-46.3) fL RDW Coeff of Chan 12.5 (11.5-14.5) % Plt Count 458 H (130-400) K/uL MPV 9.2 L (9.4-12.4) fL Sodium 136 (136-145) mmol/L Potassium 4.2 (3.5-5.1) mmol/L Chloride 99 (98-107) mmol/L Carbon Dioxide 31 (21-32) mmol/L Anion Gap 6 (3-11) BUN 12 (6-23) mg/dl Creatinine 0.68 (0.6-1.4) mg/dl Est Cr Clr Drug Dosing 104.8 ml/min Est GFR ( Amer) 116.2 ml/min Est GFR (Non-Af Amer) 100.2 ml/min BUN/Creatinine Ratio 17.6 (10-20) Glucose 89 (70-99(Fasting)) mg/dl POC Glucose 81 (70-99) mg/dl Calcium 8.5 (8.5-10.1) mg/dl Magnesium 1.8 (1.7-2.4) mg/dl C-Reactive Protein Procalcitonin (0-0.5) ng/ml 07/05/22 07/05/22 07/05/22 Range/Units 16:45 14:39 14:21 WBC (4.8-10.8) K/ul RBC (4.63-6.08) M/uL Hgb (14.0-18.0) g/dl Hct (40.1-51.0) % MCV (80.0-100.0) fL MCH (25.0-34.0) pg MCHC (32.0-36.0) g/dL RDW Std Deviation (36.4-46.3) fL RDW Coeff of Chan (11.5-14.5) % Plt Count (130-400) K/uL MPV (9.4-12.4) fL Sodium (136-145) mmol/L Potassium (3.5-5.1) mmol/L Chloride (98-107) mmol/L Carbon Dioxide (21-32) mmol/L Anion Gap (3-11) BUN (6-23) mg/dl Creatinine (0.6-1.4) mg/dl Est Cr Clr Drug Dosing ml/min Est GFR ( Amer) ml/min Est GFR (Non-Af Amer) ml/min BUN/Creatinine Ratio (10-20) Glucose (70-99(Fasting)) mg/dl POC Glucose 169 H 71 69 L* (70-99) mg/dl Calcium (8.5-10.1) mg/dl Magnesium (1.7-2.4) mg/dl C-Reactive Protein Procalcitonin (0-0.5) ng/ml 07/05/22 07/05/22 Range/Units 14:18 11:49 WBC (4.8-10.8) K/ul RBC (4.63-6.08) M/uL Hgb (14.0-18.0) g/dl Hct (40.1-51.0) % MCV (80.0-100.0) fL MCH (25.0-34.0) pg MCHC (32.0-36.0) g/dL RDW Std Deviation (36.4-46.3) fL RDW Coeff of Chan (11.5-14.5) % Plt Count (130-400) K/uL MPV (9.4-12.4) fL Sodium (136-145) mmol/L Potassium (3.5-5.1) mmol/L Chloride (98-107) mmol/L Carbon Dioxide (21-32) mmol/L Anion Gap (3-11) BUN (6-23) mg/dl Creatinine (0.6-1.4) mg/dl Est Cr Clr Drug Dosing ml/min Est GFR ( Amer) ml/min Est GFR (Non-Af Amer) ml/min BUN/Creatinine Ratio (10-20) Glucose (70-99(Fasting)) mg/dl POC Glucose 63 L* 143 H (70-99) mg/dl Calcium (8.5-10.1) mg/dl Magnesium (1.7-2.4) mg/dl C-Reactive Protein Procalcitonin (0-0.5) ng/ml
[2022-07-06 10:57] LABS: Appearance Urine Clear (Clear); Bilirubin Urine Negative (Negative); Blood Urine Negative (Negative); Color Urine Yellow; Glucose Urine UA Negative (Negative); Ketones Urine Negative (Negative); Leukocyte Esterase Urine Negative (Negative); Nitrite Urine Negative (Negative); Protein Urine Negative (Negative); Specific Gravity Urine 1.011 (1.000-1.030); Urobilinogen Urine Negative (Negative)
--- NOTE | 2022-07-06 15:36 | Hospitalist Progress Note ---
Date of Service July 06, 2022 Assessment & Plan (1) Status post below-knee amputation of left lower extremity: Plan: POD#[address] Soto on 06/30. - Continued Ceftriaxone through weekend (was on Vanco/Ceftriaxone), since discontinued - Hgb stable on repeat, improved to 9.5 - WBC elevated to 15k on 07/05 and 14.5 on 07/06 (was 9.41 on POD#1) ?reactive * Checked procal WNL, CRP elevated at 10, and UA negative * No respiratory symptoms to suggest developing pna or PE - Continue Pain control, bowel regimen --> LARGE BM 07/04 into 07/05, continue bowel regimen - DVT proph - Lovenox SQ ordered by primary -- to continue at d/c - PT/OT consulted --- [facility] for closer monitoring bsgs given recent issues w/ home supplies. Medically stable if sugars acceptable to go to rehab. Monitor for any fevers - CM following, additional referral sent to [facility] (2) Diabetes type 1, controlled: Plan: - Patient has his own insulin pump currently in place however continued issues with sensor reading and our glucometer - was using our glucometer to cover his sugars but appears now issues possibly with pump and asking niece to bring in supplies - pharmacy consulted for glycemic control -- typically difficult to control on our sliding scale, hopefully once has usual supplies/working correctly will be able to transition back - BSGs again spiked off his own pump but nigary was able to bring new supplies - Transitioned back to pump as above -- decreased his basal rate to 1.5 from 1.65 and changed carb ratio to 1:6 to 1:7 on 07/05 - BSGs stable--Continue to monitor at rehab/increase if hyperglycemic as outpatient (3) Peripheral arterial disease: Plan: Prior history of B/L iliac artery stents (2014), R common/external iliac (2017), R common femoral endarterectomy (11/2018) with bovine patch. Left femoral to PT composite bypass graft (06/2020). S/P L fem-anterior tibial bypass with Dr Easno on 11/19/21, now s/p L BKA - Continue Plavix/ASA daily (4) COPD (chronic obstructive pulmonary disease): Plan: Does not appear to be on breathing treatments outpatient, stable on RA - Albuterol prn wheezing available (5) CAD (coronary artery disease): Plan: S/P CABG x 1 (2015). Aortic Stenosis S/P porcine AV - Continue ASA, metoprolol, Plavix, statin (6) Hypothyroidism: Plan: - Continue levothyroxine 175mcg - TSH checked for low Na (although close for normal w/ correction for Glu, also on chlorthalidone) --> low 0.026 - ?ESS, recommend repeat TFTs in 6-8 weeks (7) Hypertension: Plan: - Continue metoprolol tartrate 12.5mg BID, hygroton 25mg resumed morning 07/01 but dehydrated on exam and ordered IVF 07/02 and this was placed on hold - BP stable, improvement in hydration - Chlorthalidone resumed this morning 07/05 (8) Dyslipidemia: Plan: - Continue statin (9) Anemia: Plan: acute on chronic, blood loss from surgery - remains on PO iron BID - prior low folate during prior admit, remains on supplementation - Also had prior borderline B12 -- repeat wnl - Repeat hgb improved 8.6--> 9.5 - No bleeding reported, remains on iron BID (10) Vitamin deficiency: Plan: prior lows 19, repeated to ensure no additional replacement for wound healing/etc given low Ca - Vit D returned 12.4 -- ergocalciferol x 1 provided, would continue weekly, repeat labs outpatient Plan continued inpatient stay awaiting bed at [facility] No further recommendations as patient is medically stable for dc when insurance auth received for rehab Hospitalists will sign off but continue to do daily chart checks to ensure BSG remain stable Please call with any questions Plan d/w Dr. Sharp Admission and Anticipated Discharge Date Admission Date: June 30, 2022 Subjective Patient seen on daily rounds this morning. He is resting comfortably in bed and offers no complaints or concerns. His pain from his surgical L bka site is well controlled. Denies fever, chills, chest pain, dyspnea, n/v/d, or gu symptoms. Review of Systems Review of Systems: All systems reviewed and are unremarkable except as noted in HPI and below. Denies fever, chills, fatigue, headache, nasal congestion, sore throat, cough, chest pain, shortness of breath, palpitations, orthopnea, PND, abdominal pain, n/v/d, constipation, dysuria, hematuria, frequency, back pain, joint pain or swelling, easy bruising or bleeding. Physical Exam Physical Exam: GENERAL: 67 yo Well-developed, well-nourished WM. NAD. LUNGS: Clear to auscultation bilaterally. No W/R/R. CARDIOVASCULAR: Regular rate and rhythm. ABDOMEN: Soft, non-tender and non-distended. BS normoactive x 4 quad. EXTREMITIES: No edema. Non-tender. Peripheral pulses +2/4. NEUROLOGIC: A&O x3. Nnfocal PSYCHIATRIC: Cooperative. Appropriate mood and affect. SKIN: Warm, dry, intact. L BKA site is dressed and wrapped. Results & Data Results & Data ([facility]) Vital Signs (Past 12 Hours) Vital Signs Temp Pulse Resp BP Pulse Ox O2 Del Method 07/06/22 15:25 36.6 C 73 16 141/76 H 98 Room Air 07/06/22 07:44 36.9 C 76 16 127/74 97 Room Air Laboratory Results 07/06/22 07:12 07/06/22 07:12 PG Care Time/CCT Total # of Minutes Spent Total Time Spent with Patient: Total time spent is greater than 50% in coordination of care (as documented) at patient's floor/unit and/or counseling patient: Coding Level of Care Code 19970 Subseq Hosp Care Lvl 2 Diagnoses Status post below-knee amputation of left lower extremity Z89.512 Diabetes type 1, controlled E10.9 Peripheral arterial disease I73.9 COPD (chronic obstructive pulmonary disease) J44.9 CAD (coronary artery disease) I25.10 Coronary Disease-Associated Artery/Lesion type: [place] artery [place] vs. transplanted heart: [place] heart Associated angina: without angina Hypothyroidism E03.9 Hypothyroidism type: unspecified Hypertension I10 Hypertension type: unspecified Dyslipidemia E78.5 Anemia D64.9 Vitamin deficiency E56.9 (1) CAD (coronary artery disease) Coronary Disease-Associated Artery/Lesion type: [place] artery [place] vs. transplanted heart: [place] heart Associated angina: without angina Qualified Code(s): I25.10 - Atherosclerotic heart disease of [place] coronary artery without angina pectoris (2) Hypothyroidism Hypothyroidism type: unspecified Qualified Code(s): E03.9 - Hypothyroidism, unspecified (3) Hypertension Hypertension type: unspecified Qualified Code(s): I10 - Essential (primary) hypertension
[2022-07-06] MEDS: ATORVASTATIN 40 MG TAB PO SCH (19:42)
[2022-07-06] MEDS: SENNA 8.6 MG TAB PO SCH (19:42)
[2022-07-07] MEDS: oxyCODONE HCL IR 5 MG TAB (IMMEDIATE RELEASE) PO PRN ×3 (04:37→15:39)
[2022-07-07] MEDS: LEVOTHYROXINE SODIUM 175 MCG TABLET PO SCH (05:10)
[2022-07-07] MEDS: ACETAMINOPHEN 500 MG TAB PO SCH ×2 (05:10→14:29)
[2022-07-07 06:28] LABS: Basophils # (auto) 0.07 K/uL (0-0.2); Basophils % (auto) 0.7 %; Eosinophils # (auto) 0.33 K/uL (0-0.50); Eosinophils % (auto) 3.3 %; Hematocrit (blood only) 27.7 % (40.1-51.0); Immature Granulocytes # (auto) 0.07 K/uL (0.00-0.02); Immature Granulocytes % (auto) 0.7 %; Lymphocytes # (auto) 2.32 K/uL (1.2-3.4); Mean Corpuscular Hemoglobin 28.1 pg (25.0-34.0); Mean Corpuscular Hgb Conc 32.5 g/dL (32.0-36.0); Mean Corpuscular Volume 86.6 fL (80.0-100.0); Monocytes # (auto) 1.02 K/uL (0.24-0.82); Monocytes % (auto) 10.1 %; Neutrophils # (auto) 6.26 K/uL (1.4-6.5); Neutrophils % (auto) 62.2 %; Platelet Count 434 K/uL (130-400); RDW Coefficient of Variation 12.7 % (11.5-14.5); White Blood Count 10.07 K/ul (4.8-10.8)
[2022-07-07 06:47] LABS: BUN Creatinine Ratio 21.6 (10-20); Calcium 8.5 mg/dl (8.5-10.1); Creatinine Clr Calc Pharmacy 96.3 ml/min; Est GFR (African American) 112.2 ml/min; Est GFR (Non-African American) 96.8 ml/min; Potassium 3.7 mmol/L (3.5-5.1)
[2022-07-07] MEDS: ASPIRIN 81 MG ECTAB PO SCH (08:31)
[2022-07-07] MEDS: CALCITRIOL 0.25 MCG CAPSULE PO SCH (08:32)
[2022-07-07] MEDS: CHLORTHALIDONE 25 MG TAB PO SCH (08:32)
[2022-07-07] MEDS: CLOPIDOGREL BISULFATE 75 MG TAB PO SCH (08:33)
[2022-07-07] MEDS: DOCUSATE SODIUM 100 MG CAP PO SCH (08:33)
[2022-07-07] MEDS: FOLIC ACID 1 MG TAB PO SCH (08:34)
[2022-07-07] MEDS: FERROUS SULFATE 325 MG TAB PO SCH (08:34)
[2022-07-07] MEDS: ADVANCED PROBIOTIC 1250 MG CAPSULE PO SCH (08:35)
[2022-07-07] MEDS: MAGNESIUM OXIDE 400 MG TAB PO SCH (08:35)
[2022-07-07] MEDS: METOPROLOL TARTRATE 25 MG TAB PO SCH (08:35)
[2022-07-07] MEDS: NYSTATIN POWDER 15GM BTL EXT SCH (08:36)
--- NOTE | 2022-07-07 08:36 | Orthopedic Progress Note ---
Date of Service July 07, 2022 Assessment & Plan (1) Acute osteomyelitis of left lower leg: Admission and Anticipated Discharge Date Admission Date: June 30, 2022 Results & Data ([facility]) Vital Signs (Past 12 Hours) Vital Signs Temp Pulse Resp BP Pulse Ox O2 Del Method 07/07/22 07:11 36.7 C 72 16 117/74 100 Room Air 07/06/22 22:26 36.9 C 75 18 129/74 95 Room Air
[2022-07-07] MEDS: POTASSIUM CHLORIDE PWD 20 MEQ PACK PO SCH (08:37)
[2022-07-07] MEDS: ENOXAPARIN INJ 40 MG/0.4 ML SYR SQ SCH (08:39)
[2022-07-07] MEDS: INSULIN, Rapid-Acting PUMP SCH ×2 (11:59→14:20)
--- NOTE | 2022-07-07 12:56 | Orthopedic Progress Note ---
Date of Service July 07, 2022 Assessment & Plan (1) Acute osteomyelitis of left lower leg: Plan: POD 7 - s/p BKA left lower extremity Ice to left leg as needed for pain/swelling. Continue splint and dressings on left leg Elevation on pillow as needed for pain/swelling. Allowed out of bed, WBAT right lower extremity with prosthesis in place. NWB LLE Use walker to assist with ambulation. Continue regular diabetic diet. Pain medication as needed. Awaiting placement - possible [facility] in the next day or so. Okay from ortho standpoint for discharge when bed available and auth obtained. Admission and Anticipated Discharge Date Admission Date: June 30, 2022 Subjective Patient getting back into bed upon arrival. He was up sitting in a chair. He states he's feeling more steady on his right foot and has been doing more ambulating around his room. Doin well otherwise. Pain well controlled, tolerating splint on left leg. Physical Exam Musculoskeletal: Dressings and splint left leg clean, dry and intact. Able to actively lift left leg. Results & Data ([facility]) Vital Signs (Past 12 Hours) Vital Signs Temp Pulse Resp BP Pulse Ox O2 Del Method 07/07/22 07:11 36.7 C 72 16 117/74 100 Room Air Laboratory Results 07/07/22 07/07/22 07/07/22 Range/Units 12:01 08:13 05:55 WBC (4.8-10.8) K/ul RBC (4.63-6.08) M/uL Hgb (14.0-18.0) g/dl Hct (40.1-51.0) % MCV (80.0-100.0) fL MCH (25.0-34.0) pg MCHC (32.0-36.0) g/dL RDW Std Deviation (36.4-46.3) fL RDW Coeff of Chan (11.5-14.5) % Plt Count (130-400) K/uL MPV (9.4-12.4) fL Immature Gran % (Auto) % Neut % (Auto) % Lymph % (Auto) % [place] % (Auto) % Eos % (Auto) % Baso % (Auto) % Neut # (Auto) (1.4-6.5) K/uL Lymph # (Auto) (1.2-3.4) K/uL [place] # (Auto) (0.24-0.82) K/uL Eos # (Auto) (0-0.50) K/uL Baso # (Auto) (0-0.2) K/uL Immature Gran # (Auto) (0.00-0.02) K/uL Sodium 136 (136-145) mmol/L Potassium 3.7 (3.5-5.1) mmol/L Chloride 101 (98-107) mmol/L Carbon Dioxide 30 (21-32) mmol/L Anion Gap 5 (3-11) BUN 16 (6-23) mg/dl Creatinine 0.74 (0.6-1.4) mg/dl Est Cr Clr Drug Dosing 96.3 ml/min Est GFR ( Amer) 112.2 ml/min Est GFR (Non-Af Amer) 96.8 ml/min BUN/Creatinine Ratio 21.6 H (10-20) Glucose 130 H (70-99(Fasting)) mg/dl POC Glucose 125 H 93 (70-99) mg/dl Calcium 8.5 (8.5-10.1) mg/dl 07/07/22 07/06/22 07/06/22 Range/Units 05:55 20:34 17:02 WBC 10.07 (4.8-10.8) K/ul RBC 3.20 L (4.63-6.08) M/uL Hgb 9.0 L (14.0-18.0) g/dl Hct 27.7 L (40.1-51.0) % MCV 86.6 (80.0-100.0) fL MCH 28.1 (25.0-34.0) pg MCHC 32.5 (32.0-36.0) g/dL RDW Std Deviation 39.0 (36.4-46.3) fL RDW Coeff of Chan 12.7 (11.5-14.5) % Plt Count 434 H (130-400) K/uL MPV 9.0 L (9.4-12.4) fL Immature Gran % (Auto) 0.7 % Neut % (Auto) 62.2 % Lymph % (Auto) 23.0 % [place] % (Auto) 10.1 % Eos % (Auto) 3.3 % Baso % (Auto) 0.7 % Neut # (Auto) 6.26 (1.4-6.5) K/uL Lymph # (Auto) 2.32 (1.2-3.4) K/uL [place] # (Auto) 1.02 H (0.24-0.82) K/uL Eos # (Auto) 0.33 (0-0.50) K/uL Baso # (Auto) 0.07 (0-0.2) K/uL Immature Gran # (Auto) 0.07 H (0.00-0.02) K/uL Sodium (136-145) mmol/L Potassium (3.5-5.1) mmol/L Chloride (98-107) mmol/L Carbon Dioxide (21-32) mmol/L Anion Gap (3-11) BUN (6-23) mg/dl Creatinine (0.6-1.4) mg/dl Est Cr Clr Drug Dosing ml/min Est GFR ( Amer) ml/min Est GFR (Non-Af Amer) ml/min BUN/Creatinine Ratio (10-20) Glucose (70-99(Fasting)) mg/dl POC Glucose 177 H 152 H (70-99) mg/dl Calcium (8.5-10.1) mg/dl
--- NOTE | 2022-07-07 14:29 | Discharge Summary ---
Date of Service July 07, 2022 Discharge Data Consultations 06/30/22 13:16 Consult Hospitalist Routine Procedures Performed Operation Date: 06/30/22 08:30 Actual Procedures p Left Below the Knee Amputation(Left) - Xander Soto MD Hospital Course (1) Acute osteomyelitis of left lower le) Status post below-knee amputation of left lower extremity: Plan: POD#[address] Soto on 06/30. - Continued Ceftriaxone through weekend (was on Vanco/Ceftriaxone), since discontinued - Hgb stable on repeat, improved to 9.5 - WBC elevated to 15k on 07/05 and 14.5 on 07/06 (was 9.41 on POD#1) ?reactive * Checked procal WNL, CRP elevated at 10, and UA negative * No respiratory symptoms to suggest developing pna or PE- Continue Pain control, bowel regimen --> LARGE BM 07/04 into 07/05, continue bowel regimen - DVT proph - Lovenox SQ ordered by primary -- to continue at d/c x 2-[address] Soto. - PT/OT consulted - --May be weight-bear as tolerated right lower extremity with his prosthesis and assistance of a walker. He is to remain nonweightbearing left lower extremity. - Splint on his left leg at all times. Keep the dressing clean and dry. - No antibiotics needed for treatment of left leg. - Pain controlled with oxycodone, ice and elevation - Follow up as scheduled with Dr. Soto as scheduled on Jul 12, 2022. - Discharge instructions reviewed with patient. All questions answered. - CM following, plan for discharge to [facility] today. Received authorization today. (2) Diabetes type 1, controlled: Plan: - Patient has his own insulin pump currently in place however continued issues with sensor reading and our glucometer - was using our glucometer to cover his sugars but appears now issues possibly with pump and asking [facility] to bring in supplies - pharmacy consulted for glycemic control -- typically difficult to control on our sliding scale, hopefully once has usual supplies/working correctly will be able to transition back - BSGs again spiked off his own pump but [facility] was able to bring new supplies - Transitioned back to pump as above --decreased his basal rate to 1.5 from 1.65 and changed carb ratio to 1:6 to 1:7 on 07/05 - BSGs stable--Continue to monitor at rehab/increase if hyperglycemic as outpatient (3) Peripheral arterial disease: Plan: Prior history of B/L iliac artery stents (2014), R common/external iliac (2017), R common femoral endarterectomy (11/2018) with bovine patch. Left femoral to PT composite bypass graft (06/2020). S/P L fem-anterior tibial bypass with Dr Eason on 11/19/21, now s/p L BKA - Continue Plavix/ASA daily (4) COPD (chronic obstructive pulmonary disease): Plan: Does not appear to be on breathing treatments outpatient, stable on RA - Albuterol prn wheezing available (5) CAD (coronary artery disease): Plan: S/P CABG x 1 (2015). Aortic Stenosis S/P porcine AV - Continue ASA, metoprolol, Plavix, statin (6) Hypothyroidism: Plan: - Continue levothyroxine 175mcg - TSH checked for low Na (although close for normal w/ correction for Glu, also on chlorthalidone) --> low 0.026 - ?ESS, recommend repeat TFTs in 6-8 weeks (7) Hypertension: Plan: - Continue metoprolol tartrate 12.5mg BID, hygroton 25mg resumed morning 07/01 but dehydrated on exam and ordered IVF 07/02 and this was placed on hold - BP stable, improvement in hydration - Chlorthalidone resumed this morning 07/05 (8) Dyslipidemia: Plan: - Continue statin (9) Anemia: Plan: acute on chronic, blood loss from surgery - remains on PO iron BID - prior low folate during prior admit, remains on supplementation - Also had prior borderline B12 -- repeat wnl - Repeat hgb improved 8.6--> 9.5 - No bleeding reported, remains on iron BID (10) Vitamin deficiency: Plan: prior lows 19, repeated to ensure no additional replacement for wound healing/etc given low Ca -Vit D returned 12.4-- ergocalciferol x 1 provided, would continue weekly, repeat labs outpatient
== END 2022-07-07 16:04 | DRG 240 ==
LOC: ASU 05:52 → 3E 12:24

== ENCOUNTER 2022-07-18 15:41 | Inpatient (IN) ==
[2022-07-18 16:18] LABS: Basophils # (auto) 0.07 K/uL (0-0.2); Basophils % (auto) 0.6 %; Eosinophils % (auto) 1.6 %; Hemoglobin 11.2 g/dl (14.0-18.0); Immature Granulocytes # (auto) 0.08 K/uL (0.00-0.02); Immature Granulocytes % (auto) 0.7 %; Lymphocytes # (auto) 2.01 K/uL (1.2-3.4); Lymphocytes % (auto) 16.5 %; Mean Corpuscular Hemoglobin 27.7 pg (25.0-34.0); Mean Corpuscular Hgb Conc 32.9 g/dL (32.0-36.0); Monocytes # (auto) 1.11 K/uL (0.24-0.82); Monocytes % (auto) 9.1 %; Neutrophils # (auto) 8.74 K/uL (1.4-6.5); Neutrophils % (auto) 71.5 %; Platelet Count 522 K/uL (130-400); RDW Coefficient of Variation 13.5 % (11.5-14.5); RDW Standard Deviation 41.4 fL (36.4-46.3); Red Blood Count 4.05 M/uL (4.63-6.08); White Blood Count 12.21 K/ul (4.8-10.8)
[2022-07-18 16:41] LABS: Alanine Aminotransferase 23 U/L (7-52); Albumin Globulin Ratio 0.9 (0.9-2); Albumin Level 3.7 gm/dl (3.4-5.0); Alkaline Phosphatase 104 U/L (34-104); Anion Gap 8 (3-11); Aspartate Aminotransferase 23 U/L (13-39); BUN Creatinine Ratio 30.3 (10-20); Bilirubin,Total 0.5 mg/dl (0.2-1.0); Blood Urea Nitrogen 23 mg/dl (6-23); Calcium 9.7 mg/dl (8.5-10.1); Carbon Dioxide 32 mmol/L (21-32); Chloride 93 mmol/L (98-107); Est GFR (Non-African American) 95.7 ml/min; Globulin 4.3 gm/dl (2.5-4.0); Glucose 176 mg/dl (70-99(Fasting)); Potassium 3.8 mmol/L (3.5-5.1); Sodium 133 mmol/L (136-145)
--- NOTE | 2022-07-18 17:08 | History & Physical Report ---
Date of Service July 18, 2022 Assessment & Plan (1) Delayed surgical wound healing: Plan: Patient will be sent to the emergency room for direct admission. We will plan to undergo irrigation and debridement, revision below-knee amputation versus above-knee amputation of his left leg tomorrow with Dr. Soto at [facility]. He will be n.p.o. after midnight. His dressings were placed on his left leg today in the office and they can stay in place until surgery tomorrow. Encouraged elevation and ice as needed. Tylenol and/or oxycodone as needed for pain. He does not need any preoperative antibiotics besides his preop dose 1 hour prior to incision. He can be out of bed, weight- bear as tolerated on the right lower extremity with his prosthesis and nonweightbearing on his left lower extremity with the use of a walker. His home medications will be continued. We will hold his Plavix in preparation for surgery, will resume post operatively. Informed consent was obtained. He understands and agrees with the plan. History of Present Illness Chief Complaint: Delayed wound healing left lower extremity, status post below-knee amputation on June 30, 2022 Primary Care Provider: Jeremias Morton DO Patient is a pleasant 67-year-old male who was seen and evaluated in our office today. He is status post a left leg below-knee amputation with Dr. Soto on June 30, 2022. He presents today with his [id number]. He is doing fine with no significant complaints of pain. [facility] has [facility] and is discharged from there today. He has been up ambulating with his prosthesis on the right leg and use of a walker. He has been nonweightbearing on the left leg. His splint was removed last week and he was switched to a stump electronic installer dressing. Last week it was noticed to be some delay in wound healing with some necrosis around the skin edges and some serous fluid type drainage. There is no fluctuance. He did complete his antibiotic course. He has had no fevers or chills. He presents today for another wound check and shows to continue to have delayed wound healing with necrosis. Due to these findings, surgical intervention was recommended. He is scheduled for an irrigation and debridement and revision below-knee amputation possible above-knee amputation of his left leg with Dr. Soto scheduled for tomorrow July 19, 2022. Allergies Allergy/AdvReac Type Severity Reaction Status Date / Time No Known Allergies Allergy Unknown Verified 07/18/22 17:07 Home Medications Medication Instructions Recorded Confirmed Type clopidogrel 75 mg tablet (Plavix) 75 mg PO QAM #30 tabs 01/28/21 06/23/22 Rx aspirin 81 mg tablet,delayed 81 mg PO QAM 05/04/21 06/30/22 History release (Mohit Low Dose Aspirin) ferrous sulfate 325 mg (65 mg 325 mg PO BID #60 tabs 08/03/21 06/30/22 Rx iron) tablet,delayed release lactobacillus combination no.9 4 4,000 mmu cells PO QAM 08/04/21 06/30/22 History billion cell capsule (Adult 50 Plus Probiotic) atorvastatin 80 mg tablet (Lipitor) 80 mg PO HS #90 tabs 11/15/21 06/30/22 Rx docusate sodium 100 mg capsule 100 mg PO UD PRN Constipation 01/04/22 06/30/22 History (Colace) calcitriol 0.25 mcg capsule 0.25 mcg PO QAM #30 caps 03/31/22 06/30/22 Rx (Rocaltrol) metoprolol tartrate 25 mg tablet 12.5 mg PO BID #90 tabs 04/17/22 06/30/22 Rx insulin aspart U-100 100 unit/mL 75 unit subcut DAILY 05/09/22 06/30/22 History subcutaneous solution (Novolog U-100 Insulin aspart) chlorthalidone 25 mg tablet 25 mg PO QAM #90 tabs 05/20/22 06/30/22 Rx pantoprazole 40 mg tablet,delayed 40 mg PO UD PRN Acid Reflux 06/08/22 06/30/22 History release (Protonix) folic acid 1 mg tablet 1 mg PO QAM #30 tabs 06/23/22 06/30/22 Rx levothyroxine 175 mcg tablet 175 mcg PO QAM #90 tabs 07/01/22 Rx (Synthroid) magnesium oxide 400 mg (241.3 mg 400 mg PO QAM #30 tabs 07/07/22 Rx magnesium) tablet oxycodone 5 mg tablet 5 - 10 mg PO Q4H PRN pain #30 tabs 07/07/22 Rx acetaminophen 500 mg tablet 1,000 mg PO Q8 PRN Pain 07/18/22 07/18/22 History (Tylenol Extra Strength) nystatin 100,000 unit/gram topical 1 applic topical BID PRN Skin 07/18/22 07/18/22 History powder Irritation potassium chloride 20 mEq 20 meq PO BID 07/18/22 07/18/22 History tablet,extended release Past Med/Surg History Medical History Aortic stenosis s/p porcine valve replacement (2015) + CABG x1 Follows with [facility] cardio CAD (coronary artery disease) s/p CABG x 1 (2015) CKD (chronic kidney disease), stage III Constipation Diabetes mellitus type 1 + Insulin pump Diabetic nephropathy associated with type 1 diabetes mellitus Diabetic ulcer of left foot Follows with [facility] wound clinic. Last visit 06/07/22- left diabetic foot ulcer "Wounds are stable deteriorated. No debridement performed." PT REPORTS LAST VISIT A FEW WEEKS AGO...NEED FOR SX Dyslipidemia GERD (gastroesophageal reflux disease) History of Clostridium difficile infection s/p treatment (2020) History of colon polyps ALL NEGATIVE PER PT 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) History of osteomyelitis left foot Hx MRSA infection 01/2022 (left heel) Hx of renal calculi Hypertension Hypothyroidism Infection LLE - REASON FOR UPCOMING SX/CURRENT ABX TX FOR Insulin pump in place Osteoarthritis Osteoporosis Proliferative diabetic retinopathy associated with type 1 diabetes mellitus PVD (peripheral vascular disease) s/p B/L iliac artery stents (2014), R common/external iliac (2017), R common femoral endarterectomy (11/2018) with bovine patch. Left femoral to PT composite bypass graft (06/2020) Surgical History Below-knee amputation of right lower extremity H/O cataract extraction R/L H/O endarterectomy R common femoral (11/2018) H/O vascular surgery Right Femoral to Posterior tibial Prosthetic Bypass Graft(Right) History of ankle surgery LEFT ANKLE +HARDWARE REMOVED History of aortic valve replacement 2016 ([facility]) History of arterial bypass of lower extremity Left femoral to PT composite bypass graft (06/2020) History of cardiac cath x2, most recent 2016 > no stents (subsequent CABG with AVR in 2016); [facility] History of carpal tunnel release R/L History of colonoscopy History of coronary artery bypass graft CABG x1 + AVR (2016) History of esophagogastroduodenoscopy (EGD) History of myringotomy w/tubes bilat. History of open reduction and internal fixation (ORIF) procedure LLE () History of skin graft Split Thickness Skin Graft of Left Lateral Ankle (11/18/20): LMA#5, atraumatic x1 at [facility] History of tonsillectomy History of tooth extraction History of umbilical hernia repair Hx of cystoscopy w/stent placement; stent then removed Hx of surgical procedure Left Leg Wound Debridement and Irrigation S/P femoropopliteal bypass surgery Right fem-pop bypass graft (01/19/21): Grade 2 view, MAC 3.0, ETT 8.0 at [facility] S/P insertion of iliac artery stent B/L iliac stent placement (2014) 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 Left transmetatarsal amputation (11/23/21): LMA# 5.0 at [facility]. No issues noted per post-op anesthesia progress note. HX 1 SX TO REMOVE ALL TOES LEFT FOOT NOVEMBER 2021 Family History Brother Family history of diabetes mellitus Sister Family history of diabetes mellitus Mother Family history of diabetes mellitus Grandmother (Maternal) Family history of diabetes mellitus Uncle Family hx of colon cancer Colorectal cancer Father Family history of esophageal cancer Sister Family history of diabetes mellitus Other No family history of adverse response to anesthesia Denies family history of Ovarian cancer Prostate cancer Myocardial infarction Breast cancer Social History Smoking Status: Current some day smoker Tobacco Type: Cigarettes and Smokeless Tobacco (Dip or Chew) Second Hand Exposure: Yes (as a child); Hx Alcohol Use: No Hx Substance Use: No Preferred Language: [place]arag[place] Communication Ability: Effective Visual Impairment: Limited Hearing Ability: Hard of Hearing Advertising Account Executive Required: No Beliefs That Will Affect Care: None marital status: Current Living Situation: Other Current Living Situation Comment: ROOMATE current occupational status: disabled How many Children do You have: 2 How many Children do You have Comment: family assists with care, also is part of the waiver program so the pt's roommate is able to assist with care through this program Feels Safe at Home: Yes Childhood Exposure to Second-Hand Smoke: Yes Diet Comment: Carb Counts. (8250-2447, roughly), protein drinks caffeine: Yes (coffee, rarely ) during the past year weight has: remained stable Dental Care, Regularly: No Seatbelt Use: always Sunscreen Use: No Gender Identity: Male Assistive Devices: Walker and Wheelchair Review of Systems Constitutional: no fever, no chills, no sweats and no body aches Eyes: no corrective lenses Ear, Nose, Mouth, Throat: no ear pain, no ear trauma, no tinnitus, no hearing loss and no dizziness Respiratory: no cough, no chest congestion and no dyspnea Cardiovascular: no chest pain, no chest pain at rest, no palpitations, no lightheadedness, no syncope and no edema Gastrointestinal: no abdominal pain, no bloating, no heartburn, no nausea and no vomiting Genitourinary: no dysuria or no difficulty urinating Musculoskeletal: no back pain, no neck pain, no joint pain, no deformity, no swelling and no limited range of motion Integumentary: + wounds, + erythema, + dry skin and + change in skin color Neurologic: + gait abnormality, + tingling and + numbness Endocrine: no change in body appearance Hematologic / Lymphatic: + easy bleeding and + easy bruising Physical Exam Constitutional: well developed, well nourished and average body habitus; no acute distress Eyes: PERRL, conjunctivae normal, anicteric sclerae ENMT: external ear and nose normal, oropharynx normal Neck: trachea midline, no thyromegaly Respiratory: normal respiratory effort, lungs clear to auscultation Cardiovascular: RRR, no murmur, no edema Chest (Breasts): Chest: normal inspection of chest Gastrointestinal (Abdomen): normal bowel sounds, soft, nontender, no hepatosplenomegaly Musculoskeletal: left lower leg incision with areas of epidermal necrosis, some areas of healing, Other areas or nonhealing incision with serous anguinous drainage. No fluctuance, mild surrounding erythema. Skin: no rashes, warm and dry Neurologic: PERRL, EOMI, accommodation nl, no face palsy, no dysarthria Psychiatric: A+Ox3, euthymic affect Results & Data Results & Data ([facility]) Vital Signs (Past 12 Hours) Vital Signs Temp Pulse Resp BP Pulse Ox O2 Del Method 07/18/22 15:47 36.9 C 79 18 120/64 99 Room Air Laboratory Results CBC, BMP, T+S, CRP and ESR pending. Code Status & VTE Plan VTE Prophylaxis Plan VTE Prophylaxis will be ordered: No
[2022-07-18 18:46] LABS: Hematocrit (blood only) 30.9 % (40.1-51.0); Hemoglobin 9.9 g/dl (14.0-18.0); Mean Corpuscular Hemoglobin 27.5 pg (25.0-34.0); Mean Corpuscular Volume 85.8 fL (80.0-100.0); Mean Platelet Volume 9.3 fL (9.4-12.4); Platelet Count 462 K/uL (130-400); RDW Coefficient of Variation 13.3 % (11.5-14.5); RDW Standard Deviation 41.2 fL (36.4-46.3); White Blood Count 10.93 K/ul (4.8-10.8)
[2022-07-18 19:08] LABS: BUN Creatinine Ratio 33.8 (10-20); C Reactive Protein 2.29 mg/dl (0-0.5); Calcium 9.1 mg/dl (8.5-10.1); Creatinine Clr Calc Pharmacy 96.3 ml/min; Est GFR (African American) 112.2 ml/min; Est GFR (Non-African American) 96.8 ml/min; Potassium 3.4 mmol/L (3.5-5.1)
[2022-07-18] MEDS ORDERED: SODIUM CHLORIDE 0.9% 1000ML 1,000 ML IV SCH (20:34)
[2022-07-18] MEDS ORDERED: PANTOprazole 40 MG TAB PO PRN (20:34)
[2022-07-18] MEDS ORDERED: ONDANSETRON INJ 2 MG/ML 2 ML VIAL IV PRN (20:34)
[2022-07-18] MEDS ORDERED: TAMSULOSIN HCL 0.4 MG CAP PO PRN (20:34)
[2022-07-18] MEDS: DOCUSATE SODIUM 100 MG CAP PO SCH (21:28)
[2022-07-18] MEDS: POTASSIUM CHLORIDE CRTAB 20 MEQ TABCR PO SCH (21:28)
[2022-07-18] MEDS: ATORVASTATIN 40 MG TAB PO SCH (21:29)
[2022-07-18] MEDS: METOPROLOL TARTRATE 25 MG TAB PO SCH (21:30)
[2022-07-18] MEDS: NYSTATIN POWDER 15GM BTL EXT SCH (21:33)
[2022-07-18] MEDS ORDERED: ACETAMINOPHEN 500 MG TAB PO SCH (22:00)
[2022-07-18] MEDS ORDERED: DEXTROSE 50% 50 ML SYRINGE IV PRN (22:15)
[2022-07-18] MEDS ORDERED: GLUCOSE 40% GEL 15 GM TUBE PO PRN (22:15)
[2022-07-18] MEDS ORDERED: GLUCAGON FOR INJ 1 MG VIAL IM PRN (22:15)
[2022-07-18] MEDS ORDERED: GLUCOSE 10 TAB/TUBE PO PRN (22:15)
[2022-07-18] MEDS ORDERED: INSULIN ASPART 100 UNITS/ML VIAL SC PRN (22:15)
[2022-07-18] MEDS ORDERED: CARBOHYDRATES FOR HYPOGLYCEMIA PO PRN (22:15)
[2022-07-18] MEDS: INSULIN, Rapid-Acting PUMP SCH (23:48)
[2022-07-19] MEDS ORDERED: ceFAZolin 2000MG 2,000 MG/15 ML SYR IV SCH (06:00)
[2022-07-19] MEDS: ACETAMINOPHEN 1,000 MG/100 ML VIAL IV SCH ×3 (06:04→22:17)
[2022-07-19] MEDS: LEVOTHYROXINE SODIUM 175 MCG TABLET PO SCH (06:05)
[2022-07-19] MEDS: INSULIN, Rapid-Acting PUMP SCH ×4 (06:40→23:45)
[2022-07-19] MEDS: MAGNESIUM OXIDE 400 MG TAB PO SCH (07:19)
[2022-07-19] MEDS: DOCUSATE SODIUM 100 MG CAP PO SCH ×2 (07:19→22:25)
[2022-07-19] MEDS: ADVANCED PROBIOTIC 1250 MG CAPSULE PO SCH (07:19)
[2022-07-19] MEDS: POTASSIUM CHLORIDE CRTAB 20 MEQ TABCR PO SCH ×2 (07:20→22:24)
[2022-07-19] MEDS: NYSTATIN POWDER 15GM BTL EXT SCH ×2 (08:13→23:39)
[2022-07-19] MEDS: METOPROLOL TARTRATE 25 MG TAB PO SCH ×2 (08:14→22:24)
--- NOTE | 2022-07-19 08:27 | Hospitalist Consultation ---
Date of Consultation July 19, 2022 Assessment & Plan (1) Delayed surgical wound healing: NPO for I&D w/ Tomasmariely today, possible revision BKA vs AKA monitor cultures WBC11.9k, denies fevers ESR 93, CRP 2.29 (CRP was 10.4 in June) CXR/EKG post op -- CXR no acute process, EKG unchanged NSS ordered by primary, added 10meq KCL while NPO, 10meq IV x 1 Pain control/antiemetics prn --> reports adequate control with IV tylenol currently Bowel regimen post-op, KUB if needed for any increased distention given prior reports of what appears to be overflow diarrhea Of note, reported loose stools/3-5 daily, hardened first, then liquid. does have hx cdiff. Abd non-painful on exam. Stool PCR next stool given repeat inpatient hospitalizations to r/o other infectious causes Ancef IV abx ordered pre-op -- consider escalating to Vanco given prior hx MRSA but can monitor response/cx for now. Would escalate prior to available cx if any fevers Monitor labs in AM (2) Diabetes mellitus type 1: patient with home insulin pump -- reporting good control of sugars at home last A1c 7.4 (note chronic anemia, could be false) prior admissions with removal of his insulin pump due to faulty equipment/not shutting off and having continuous infusion/hypoglycemia BSG 109 this morning, no symptoms Monitor on home pump, switch to ISS while inpatient if needed however appears much better control with recent adjustments Lillie Cerrato helped with adjustments/IQ last admission, can reach out if any issues Rec continuing DM diet once no longer NPO (3) CKD (chronic kidney disease) stage 2, GFR 60-89 ml/min: Cr stable On chlorthalidone, place on hold for AM/monitor BMP/volume status. Had been given post-op and had issues with dehydration last admission Renal dose meds as able/avoid nephrotoxins Vit D def last admit 12.4 (ergocalciferol x 1 provided -- does not appear this was continued at discharge last admission) -- consider adding 50,000 ergocalciferol weekly x 1 month, repeat labs outpatient hopefully would help w/ wound healing as well (4) CAD (coronary artery disease): S/P CABG x 1 (2015). Aortic Stenosis S/P porcine AV Continue ASA, metoprolol, Plavix, statin plavix on hold for surgery, asa continued on orders -- monitor for post-op bleeding Hgb improved since last admission, on daily Fe No CP/SOB EKG pre-op unchanged EKG w/ CP (5) PAD (peripheral artery disease): Prior history of B/L iliac artery stents (2014), R common/external iliac (2017), R common femoral endarterectomy (11/2018) with bovine patch. Left femoral to PT composite bypass graft (06/2020). S/P L fem-anterior tibial bypass with Dr Eason on 11/19/21, now w/ L BKA Continue Plavix/ASA daily -- plavix place on hold for surgery, ASA still ordered by primary service Monitor for bleeding post -op (6) Hypothyroidism: on 175mcg daily replacement TSH low last admission, rec'd repeat outpatient 4-6 weeks but will repeat in AM (7) Hypertension: Stable, 115/67 Continue metoprolol, hold chlorthalidone until AM labs/volume status assessed (8) Dyslipidemia: continue statin (9) Vitamin D deficiency: replacement, low last admit not continued at d/c Plan NPO for OR today with Dr Soto Thank you for allowing hospitalist service to participate in the care of Mr Chowdhury. Hospitalist service will follow up in AM Supervising Physician Co-Signing Physician Notes Attending Attestation & Consult Note - Pt seen/examined, chart reviewed, care plan d/w BENITO Preston. I agree w/ the perez components of her consult documentation. 67yo male with T1DM on insulin pump, PAD s/p previous right BKA, s/p recent left BKA, CAD, h/o AVR, HTN, hypothyroidism, COPD - presented from orthopedic clinic due to concern of left BKA stump poor wound healing/concern for infection. He is being taken to the OR for left BKA stump revision vs AKA depending on health/viability of stump. During my assessment he was resting comfortably. Was NPO for his surgery. Family was at bedside. He denied any complaints. PMH/PSH/allergies/meds/sochx/famhx - reviewed Exam - gen - NAD mouth - MMM heart - RRR, s1 s2 lungs - CTA b/l abd - soft NT ND BS+ ext - right BKA; left BKA stump in dressings psych - a/o x 3 Ms Preston and the hospitalist team will follow patient post-op. While awaiting surgery will add dextrose to his IV fluids as he is NPO. Isaac Segovia MD History of Present Illness Reason for Consultation: medical management Requesting Physician: Dr Soto Attending Physician: Xander Soto MD History of Present Illness 67yo male PMH significant for DM I, PAD, COPD, CKD, CAD, HTN, hypothyroidism, Dyslipidemia, and iron deficiency anemia, vitamin D deficiency, s/p LEFT BKA on 06/[address] Soto and discharged to rehab at [facility] 07/07 presented to the office on 07/18. Had been ambulating with prosthesis on the right/walker, NWB on the left. Split removed last week and switched to stump brush stainer dressing. Scheduled for I&D and revision BKA vs possible AKA with Dr Soto. Patient evaluated in room 361-1 with daughter and family at bedside. Patient states occasional pain, controlled with IV Tylenol. BSGs controlled on his home pump. Patient currently NPO for surgery. Last week noticed some delay in wound healing with necrosis around skin edges/serous fluid type drainage without fluctuance. Had completed course abx. He denies having any purulant drainage but stated Dr Soto was able to "squeeze out" what looked like blood in follow up. Of note, did mention prior constipation/formed stool/then diarrhea. Moving bowels 3-4x/daily. States got KUB last time and miralax. Has been moving his bowels. Discussed possible overflow diarrhea/gastroparesis could contribute. To alert if any increased BM to warrant testing for cdiff/others. He denies having any fever/chills prior to admission but keeping the room cool. No chest pain/shortness of breath. No nausea/vomiting/hyper/hypoglycemia with current insulin pump settings. On abx per primary service and he states Dr Soto may do the I&D and he might take a piece of his tibial bone depending on how it looks. Of note, patient typically in good spirits/quite motivated. Using cane/prosthesis for ambulation/etc. He does endorse that he has had a lot over the past year, wound healing issues/multiple amputations. He does endorse if this doesn't clear up he may be at the end. Provided support. No SI/HI but did note depressed about not having this healed up by now. Allergies Allergy/AdvReac Type Severity Reaction Status Date / Time No Known Allergies Allergy Unknown Verified 07/18/22 17:07 Home Medications Medication Instructions Recorded Confirmed Type clopidogrel 75 mg tablet (Plavix) 75 mg PO QAM #30 tabs 01/28/21 07/26/22 Rx aspirin 81 mg tablet,delayed 81 mg PO QAM 05/04/21 07/26/22 History release (Mohit Low Dose Aspirin) ferrous sulfate 325 mg (65 mg 325 mg PO BID #60 tabs 08/03/21 07/26/22 Rx iron) tablet,delayed release lactobacillus combination no.9 4 4,000 mmu cells PO QAM 08/04/21 07/26/22 History billion cell capsule (Adult 50 Plus Probiotic) atorvastatin 80 mg tablet (Lipitor) 80 mg PO HS #90 tabs 11/15/21 07/26/22 Rx docusate sodium 100 mg capsule 100 mg PO DIRECTED PRN 01/04/22 07/26/22 History (Colace) Constipation calcitriol 0.25 mcg capsule 0.25 mcg PO QAM #30 caps 03/31/22 07/26/22 Rx (Rocaltrol) metoprolol tartrate 25 mg tablet 12.5 mg PO BID #90 tabs 04/17/22 07/26/22 Rx insulin aspart U-100 100 unit/mL 0 unit continuous subcutaneous 05/09/22 07/26/22 History subcutaneous solution (Novolog infusion DAILY U-100 Insulin aspart) chlorthalidone 25 mg tablet 25 mg PO QAM #90 tabs 05/20/22 07/26/22 Rx pantoprazole 40 mg tablet,delayed 40 mg PO UD PRN Acid Reflux 06/08/22 07/26/22 History release (Protonix) folic acid 1 mg tablet 1 mg PO QAM #30 tabs 06/23/22 07/26/22 Rx levothyroxine 175 mcg tablet 175 mcg PO QAM #90 tabs 07/01/22 07/26/22 Rx (Synthroid) magnesium oxide 400 mg (241.3 mg 400 mg PO QAM #30 tabs 07/07/22 07/26/22 Rx magnesium) tablet acetaminophen 500 mg tablet 1,000 mg PO Q8 PRN Pain 07/18/22 07/26/22 History (Tylenol Extra Strength) nystatin 100,000 unit/gram topical 1 applic topical BID PRN Skin 07/18/22 07/26/22 History powder Irritation potassium chloride 20 mEq 20 meq PO BID 07/18/22 07/26/22 History tablet,extended release oxycodone 5 mg tablet 5 - 10 mg PO Q4 PRN pain #30 tabs 07/22/22 07/26/22 Rx tramadol 50 mg tablet 50 - 100 mg PO Q6H PRN pain #20 07/22/22 07/26/22 Rx tabs ergocalciferol (vitamin D2) 1,250 50,000 unit PO Tu@0900 #4 caps 07/25/22 07/26/22 Rx mcg (50,000 unit) capsule Patient History Medical History Aortic stenosis s/p porcine valve replacement (2015) + CABG x1 Follows with [facility] cardio CAD (coronary artery disease) s/p CABG x 1 (2015) CKD (chronic kidney disease), stage III Constipation Diabetes mellitus type 1 + Insulin pump Diabetic nephropathy associated with type 1 diabetes mellitus Diabetic ulcer of left foot Follows with [facility] wound clinic. Last visit 06/07/22- left diabetic foot ulcer "Wounds are stable deteriorated. No debridement performed." PT REPORTS LAST VISIT A FEW WEEKS AGO...NEED FOR SX Dyslipidemia GERD (gastroesophageal reflux disease) History of Clostridium difficile infection s/p treatment (2020) History of colon polyps ALL NEGATIVE PER PT 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) History of osteomyelitis left foot Hx MRSA infection 01/2022 (left heel) Hx of renal calculi Hypertension Hypothyroidism Infection LLE - REASON FOR UPCOMING SX/CURRENT ABX TX FOR Insulin pump in place Osteoarthritis Osteoporosis Proliferative diabetic retinopathy associated with type 1 diabetes mellitus PVD (peripheral vascular disease) s/p B/L iliac artery stents (2014), R common/external iliac (2017), R common femoral endarterectomy (11/2018) with bovine patch. Left femoral to PT composite bypass graft (06/2020) Surgical History Below-knee amputation of right lower extremity H/O cataract extraction R/L H/O endarterectomy R common femoral (11/2018) H/O vascular surgery Right Femoral to Posterior tibial Prosthetic Bypass Graft(Right) History of ankle surgery LEFT ANKLE +HARDWARE REMOVED History of aortic valve replacement 2016 ([facility]) History of arterial bypass of lower extremity Left femoral to PT composite bypass graft (06/2020) History of cardiac cath x2, most recent 2016 > no stents (subsequent CABG with AVR in 2016); [facility] History of carpal tunnel release R/L History of colonoscopy History of coronary artery bypass graft CABG x1 + AVR (2016) History of esophagogastroduodenoscopy (EGD) History of myringotomy w/tubes bilat. History of open reduction and internal fixation (ORIF) procedure LLE () History of skin graft Split Thickness Skin Graft of Left Lateral Ankle (11/18/20): LMA#5, atraumatic x1 at [facility] History of tonsillectomy History of tooth extraction History of umbilical hernia repair Hx of cystoscopy w/stent placement; stent then removed Hx of surgical procedure Left Leg Wound Debridement and Irrigation S/P femoropopliteal bypass surgery Right fem-pop bypass graft (01/19/21): Grade 2 view, MAC 3.0, ETT 8.0 at [facility] S/P insertion of iliac artery stent B/L iliac stent placement (2014) 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 Left transmetatarsal amputation (11/23/21): LMA# 5.0 at [facility]. No issues noted per post-op anesthesia progress note. HX 1 SX TO REMOVE ALL TOES LEFT FOOT NOVEMBER 2021 Family History Brother Family history of diabetes mellitus Sister Family history of diabetes mellitus Mother Family history of diabetes mellitus Grandmother (Maternal) Family history of diabetes mellitus Uncle Family hx of colon cancer Colorectal cancer Father Family history of esophageal cancer Sister Family history of diabetes mellitus Other No family history of adverse response to anesthesia Denies family history of Ovarian cancer Prostate cancer Myocardial infarction Breast cancer Social History Smoking Status: Former smoker Tobacco Type: Cigarettes and Smokeless Tobacco (Dip or Chew) Second Hand Exposure: Yes (as a child); Hx Alcohol Use: No Hx Substance Use: No Preferred Language: Maldivian Communication Ability: Effective Visual Impairment: Limited Hearing Ability: Hard of Hearing Commercial Field Inspector Required: No Beliefs That Will Affect Care: None marital status: Current Living Situation: Other Current Living Situation Comment: roommate current occupational status: disabled How many Children do You have: 2 How many Children do You have Comment: family assists with care, also is part of the waiver program so the pt's roommate is able to assist with care through this program Feels Safe at Home: Yes Childhood Exposure to Second-Hand Smoke: Yes Diet Comment: Carb Counts. ([id number], roughly), protein drinks caffeine: Yes (coffee, rarely ) during the past year weight has: remained stable Dental Care, Regularly: No Seatbelt Use: always Sunscreen Use: No Gender Identity: Male Assistive Devices: Cane, Prosthesis, Walker and Wheelchair Review of Systems Review of Systems: All systems reviewed & are unremarkable except as noted in HPI & below Physical Exam Physical Exam: General: WD chronically ill appearing male sitting in bed, NAD HEENT: head normocephalic, atraumatic, mm improved, trachea midline without deviation Resp: CTAB, no w/c/r, on room air CV: RRR, systolic murmur, no rub/gallop, cap refill wnl GI: +BS, soft nontender, insulin pump in place MSK/Neuro: follows commands, no focal deficit/slurred speech R AKA , stump looks good, nontender to palpation L BKA, dressing c/d/i (has areas of epidermal necrosis), minimal tenderness, no fluctuance, surrounding scant erythema, no purulent drainage/streaking Psych: Aox3, cooperative, pleasant but does seem more depressed than usual/defea corinne Results & Data Results & Data ([facility]) Vital Signs (Past 12 Hours) Vital Signs Temp Pulse Resp BP Pulse Ox O2 Del Method 07/19/22 08:10 36.9 C 68 16 115/67 95 Room Air Laboratory Results 07/18/22 07/18/22 07/18/22 Range/Units 20:32 18:31 18:31 WBC (4.8-10.8) K/ul RBC (4.63-6.08) M/uL Hgb (14.0-18.0) g/dl Hct (40.1-51.0) % MCV (80.0-100.0) fL MCH (25.0-34.0) pg MCHC (32.0-36.0) g/dL RDW Std Deviation (36.4-46.3) fL RDW Coeff of Chan (11.5-14.5) % Plt Count (130-400) K/uL MPV (9.4-12.4) fL Immature Gran % (Auto) % Neut % (Auto) % Lymph % (Auto) % [place] % (Auto) % Eos % (Auto) % Baso % (Auto) % Neut # (Auto) (1.4-6.5) K/uL Lymph # (Auto) (1.2-3.4) K/uL [place] # (Auto) (0.24-0.82) K/uL Eos # (Auto) (0-0.50) K/uL Baso # (Auto) (0-0.2) K/uL Immature Gran # (Auto) (0.00-0.02) K/uL ESR 93 H (0-20) mm/hr Sodium 134 L (136-145) mmol/L Potassium 3.4 L (3.5-5.1) mmol/L Chloride 95 L (98-107) mmol/L Carbon Dioxide 32 (21-32) mmol/L Anion Gap 7 (3-11) BUN 25 H (6-23) mg/dl Creatinine 0.74 (0.6-1.4) mg/dl Est Cr Clr Drug Dosing 96.3 Est GFR ( Amer) 112.2 ml/min Est GFR (Non-Af Amer) 96.8 ml/min BUN/Creatinine Ratio 33.8 H (10-20) Glucose 146 H (70-99(Fasting)) mg/dl POC Glucose 164 H (70-99) mg/dl Calcium 9.1 (8.5-10.1) mg/dl Total Bilirubin (0.2-1.0) mg/dl AST (13-39) U/L ALT (7-52) U/L Alkaline Phosphatase (34-104) U/L C-Reactive Protein 2.29 H (0-0.5) mg/dl Total Protein (6.0-8.3) gm/dl Albumin (3.4-5.0) gm/dl Globulin (2.5-4.0) gm/dl Albumin/Globulin Ratio (0.9-2) SARS-CoV-2, RNA, NAAT (NEGATIVE) Blood Type Antibody Screen 07/18/22 07/18/22 07/18/22 Range/Units 18:31 18:31 16:38 WBC 10.93 H (4.8-10.8) K/ul RBC 3.60 L (4.63-6.08) M/uL Hgb 9.9 L (14.0-18.0) g/dl Hct 30.9 L (40.1-51.0) % MCV 85.8 (80.0-100.0) fL MCH 27.5 (25.0-34.0) pg MCHC 32.0 (32.0-36.0) g/dL RDW Std Deviation 41.2 (36.4-46.3) fL RDW Coeff of Chan 13.3 (11.5-14.5) % Plt Count 462 H (130-400) K/uL MPV 9.3 L (9.4-12.4) fL Immature Gran % (Auto) % Neut % (Auto) % Lymph % (Auto) % [place] % (Auto) % Eos % (Auto) % Baso % (Auto) % Neut # (Auto) (1.4-6.5) K/uL Lymph # (Auto) (1.2-3.4) K/uL [place] # (Auto) (0.24-0.82) K/uL Eos # (Auto) (0-0.50) K/uL Baso # (Auto) (0-0.2) K/uL Immature Gran # (Auto) (0.00-0.02) K/uL ESR (0-20) mm/hr Sodium (136-145) mmol/L Potassium (3.5-5.1) mmol/L Chloride (98-107) mmol/L Carbon Dioxide (21-32) mmol/L Anion Gap (3-11) BUN (6-23) mg/dl Creatinine (0.6-1.4) mg/dl Est Cr Clr Drug Dosing Est GFR ( Amer) ml/min Est GFR (Non-Af Amer) ml/min BUN/Creatinine Ratio (10-20) Glucose (70-99(Fasting)) mg/dl POC Glucose (70-99) mg/dl Calcium (8.5-10.1) mg/dl Total Bilirubin (0.2-1.0) mg/dl AST (13-39) U/L ALT (7-52) U/L Alkaline Phosphatase (34-104) U/L C-Reactive Protein (0-0.5) mg/dl Total Protein (6.0-8.3) gm/dl Albumin (3.4-5.0) gm/dl Globulin (2.5-4.0) gm/dl Albumin/Globulin Ratio (0.9-2) SARS-CoV-2, RNA, NAAT NEGATIVE (NEGATIVE) Blood Type A Positive Antibody Screen NEGATIVE 07/18/22 07/18/22 Range/Units 16:03 16:03 WBC 12.21 H (4.8-10.8) K/ul RBC 4.05 L (4.63-6.08) M/uL Hgb 11.2 L (14.0-18.0) g/dl Hct 34.0 L (40.1-51.0) % MCV 84.0 (80.0-100.0) fL MCH 27.7 (25.0-34.0) pg MCHC 32.9 (32.0-36.0) g/dL RDW Std Deviation 41.4 (36.4-46.3) fL RDW Coeff of Chan 13.5 (11.5-14.5) % Plt Count 522 H (130-400) K/uL MPV 9.0 L (9.4-12.4) fL Immature Gran % (Auto) 0.7 % Neut % (Auto) 71.5 % Lymph % (Auto) 16.5 % [place] % (Auto) 9.1 % Eos % (Auto) 1.6 % Baso % (Auto) 0.6 % Neut # (Auto) 8.74 H (1.4-6.5) K/uL Lymph # (Auto) 2.01 (1.2-3.4) K/uL [place] # (Auto) 1.11 H (0.24-0.82) K/uL Eos # (Auto) 0.20 (0-0.50) K/uL Baso # (Auto) 0.07 (0-0.2) K/uL Immature Gran # (Auto) 0.08 H (0.00-0.02) K/uL ESR (0-20) mm/hr Sodium 133 L (136-145) mmol/L Potassium 3.8 (3.5-5.1) mmol/L Chloride 93 L (98-107) mmol/L Carbon Dioxide 32 (21-32) mmol/L Anion Gap 8 (3-11) BUN 23 (6-23) mg/dl Creatinine 0.76 (0.6-1.4) mg/dl Est Cr Clr Drug Dosing Not Reportable Est GFR ( Amer) 111.0 ml/min Est GFR (Non-Af Amer) 95.7 ml/min BUN/Creatinine Ratio 30.3 H (10-20) Glucose 176 H (70-99(Fasting)) mg/dl POC Glucose (70-99) mg/dl Calcium 9.7 (8.5-10.1) mg/dl Total Bilirubin 0.5 (0.2-1.0) mg/dl AST 23 (13-39) U/L ALT 23 (7-52) U/L Alkaline Phosphatase 104 (34-104) U/L C-Reactive Protein (0-0.5) mg/dl Total Protein 8.0 (6.0-8.3) gm/dl Albumin 3.7 (3.4-5.0) gm/dl Globulin 4.3 H (2.5-4.0) gm/dl Albumin/Globulin Ratio 0.9 (0.9-2) SARS-CoV-2, RNA, NAAT (NEGATIVE) Blood Type Antibody Screen PG Care Time/CCT Total # of Minutes Spent Total Time Spent with Patient: Total time spent is greater than 50% in coordination of care (as documented) at patient's floor/unit and/or counseling patient: Coding Level of Care Code 77682 Inpt Consult Level 3 Diagnoses Delayed surgical wound healing T81.89XA Diabetes mellitus type 1 E10.9 CKD (chronic kidney disease) stage 2, GFR 60-89 ml/min N18.2 CAD (coronary artery disease) I25.10 Associated angina: without angina Coronary Disease-Associated Artery/Lesion type: [place] artery [place] vs. transplanted heart: [place] heart PAD (peripheral artery disease) I73.9 Hypothyroidism E03.9 Hypothyroidism type: unspecified Hypertension I10 Hypertension type: unspecified Dyslipidemia E78.5 Vitamin D deficiency E55.9 (1) CAD (coronary artery disease) Associated angina: without angina Coronary Disease-Associated Artery/Lesion type: [place] artery [place] vs. transplanted heart: [place] heart Qualified Code(s): I25.10 - Atherosclerotic heart disease of [place] coronary artery without angina pectoris (2) Hypothyroidism Hypothyroidism type: unspecified Qualified Code(s): E03.9 - Hypothyroidism, unspecified (3) Hypertension Hypertension type: unspecified Qualified Code(s): I10 - Essential (primary) hypertension
[2022-07-19] MEDS ORDERED: POTASSIUM CHLORIDE CRTAB 20 MEQ TABCR PO STA (08:28)
[2022-07-19] MEDS ORDERED: POTASSIUM CHLORIDE / WTR 10 MEQ/100 ML PLCT IV ONE (09:15)
[2022-07-19 09:26] LABS: Basophils # (auto) 0.07 K/uL (0-0.2); Basophils % (auto) 0.6 %; Eosinophils % (auto) 1.7 %; Hematocrit (blood only) 32.3 % (40.1-51.0); Hemoglobin 10.2 g/dl (14.0-18.0); Immature Granulocytes # (auto) 0.04 K/uL (0.00-0.02); Immature Granulocytes % (auto) 0.3 %; Lymphocytes # (auto) 2.18 K/uL (1.2-3.4); Lymphocytes % (auto) 18.3 %; Mean Corpuscular Hemoglobin 27.2 pg (25.0-34.0); Mean Corpuscular Hgb Conc 31.6 g/dL (32.0-36.0); Mean Corpuscular Volume 86.1 fL (80.0-100.0); Mean Platelet Volume 9.2 fL (9.4-12.4); Monocytes # (auto) 1.26 K/uL (0.24-0.82); Monocytes % (auto) 10.6 %; Neutrophils # (auto) 8.18 K/uL (1.4-6.5); Neutrophils % (auto) 68.5 %; Platelet Count 471 K/uL (130-400); RDW Coefficient of Variation 13.4 % (11.5-14.5); RDW Standard Deviation 41.6 fL (36.4-46.3); Red Blood Count 3.75 M/uL (4.63-6.08); White Blood Count 11.93 K/ul (4.8-10.8)
[2022-07-19 09:53] LABS: BUN Creatinine Ratio 33.3 (10-20); Creatinine Clr Calc Pharmacy 118.8 ml/min; Est GFR (African American) 122.3 ml/min; Est GFR (Non-African American) 105.5 ml/min; Magnesium 1.8 mg/dl (1.7-2.4); Potassium 3.9 mmol/L (3.5-5.1)
[2022-07-19] MEDS ORDERED: POTASSIUM CHLORIDE 10 MEQ in SODIUM CHLORIDE 0.9% 1000ML 1,000 ML IV SCH (10:15)
--- NOTE | 2022-07-19 14:00 | XRay Report ---
XR chest 1V portable CLINICAL HISTORY: pre-op TECHNIQUE: Single frontal radiograph of the chest was obtained. Comparison: Comparison is made to chest radiograph 06/10/2022 FINDINGS: Median sternotomy wires are unchanged. Calcified aortic knob is seen. The lungs are clear. No evidenc e of pleural effusion or pneumothorax. IMPRESSION: No acute chest disease. ACT 112: Negative or not required by law. Electronically signed by: Lazaro De León M.D. 07/19/2022 1:59 PM
--- NOTE | 2022-07-19 14:14 | Electrocardiogram Report ---
Test Reason : Blood Pressure : / mmHG Vent. Rate : 066 BPM Atrial Rate : 066 BPM P-R Int : 194 ms QRS Dur : 148 ms QT Int : 468 ms P-R-T Axes : 048 -26 -07 degrees QTc Int : 490 ms Normal sinus rhythm Right bundle branch block Inferior infarct , age undetermined Abnormal ECG When compared with ECG of 04-JAN-2022 13:07, No significant change was found Confirmed by Joselo Downey ([id number]) on 07/19/2022 2:14:37 PM Referred By: Xander Soto Confirmed By:Joselo Downey
[2022-07-19] MEDS ORDERED: ERGOCALCIFEROL 50,000 UNITS 1250 MCG CAP PO SCH (15:15)
[2022-07-19] MEDS ORDERED: D5W AND NSS 1,000 ML IV SCH (16:15)
[2022-07-19] MEDS ORDERED: fentaNYL citrate 100 MCG/2 ML VIAL IV PRN (17:00)
[2022-07-19] MEDS ORDERED: ONDANSETRON INJ 2 MG/ML 2 ML VIAL IV PRN (17:00)
[2022-07-19] MEDS ORDERED: ATROPINE SULFATE 0.1 MG/ML 10ML SYR IV PRN (17:00)
[2022-07-19] MEDS ORDERED: ePHEDrine sulfate 50 MG/ML AMP IV PRN (17:00)
--- NOTE | 2022-07-19 17:00 | Anesthesiology Consultation ---
Date of Service July 19, 2022 Assessment & Plan (1) Encounter for pre-operative examination: Chart Review Chart Review: Acceptable Risk for Surgery and Patient NOT seen in Pre Admission Testing Consults Requested none History Surgery Operation Date: 07/19/22 10:10 Proposed Procedures p Left Irrigation and Debridement Leg, Possible Revision Below Knee vs Above Knee Amputation - Xander Soto MD Height/Weight Height: 5 ft 8 in Weight: 79.2 kg Allergies Allergy/AdvReac Type Severity Reaction Status Date / Time No Known Allergies Allergy Unknown Verified 07/18/22 17:07 Medications Home Medications Medication Instructions Recorded Confirmed Last Taken clopidogrel 75 mg tablet (Plavix) 75 mg PO QAM #30 tabs 01/28/21 07/18/2204/01 aspirin 81 mg tablet,delayed 81 mg PO QAM 05/04/21 07/18/22 07/18/22 release (Mohit Low Dose Aspirin) ferrous sulfate 325 mg (65 mg 325 mg PO BID #60 tabs 08/03/21 07/18/22 07/18/22 08:00 iron) tablet,delayed release lactobacillus combination no.9 4 4,000 mmu cells PO QAM 08/04/21 07/18/22 07/18/22 billion cell capsule (Adult 50 Plus Probiotic) atorvastatin 80 mg tablet (Lipitor) 80 mg PO HS #90 tabs 11/15/21 07/18/22 07/17/22 docusate sodium 100 mg capsule 100 mg PO DIRECTED PRN 01/04/22 07/18/22 06/16/22 (Colace) Constipation calcitriol 0.25 mcg capsule 0.25 mcg PO QAM #30 caps 03/31/22 07/18/22 07/18/22 (Rocaltrol) metoprolol tartrate 25 mg tablet 12.5 mg PO BID #90 tabs 04/17/22 07/18/22 07/18/22 insulin aspart U-100 100 unit/mL 0 unit continuous subcutaneous 05/09/22 07/18/22 06/29/22 12:00 subcutaneous solution (Novolog infusion DAILY 1.29 units U-100 Insulin aspart) chlorthalidone 25 mg tablet 25 mg PO QAM #90 tabs 05/20/22 07/18/22 07/18/22 pantoprazole 40 mg tablet,delayed 40 mg PO UD PRN Acid Reflux 06/08/22 07/18/22 06/30/22 05:00 release (Protonix) folic acid 1 mg tablet 1 mg PO QAM #30 tabs 06/23/22 07/18/22 07/18/22 levothyroxine 175 mcg tablet 175 mcg PO QAM #90 tabs 07/01/22 07/18/22 07/18/22 (Synthroid) magnesium oxide 400 mg (241.3 mg 400 mg PO QAM #30 tabs 07/07/22 07/18/22 1104/01 magnesium) tablet oxycodone 5 mg tablet 5 - 10 mg PO Q4H PRN pain #30 tabs 07/07/22 07/18/22 Unknown acetaminophen 500 mg tablet 1,000 mg PO Q8 PRN Pain 07/18/22 07/18/22 Unknown (Tylenol Extra Strength) nystatin 100,000 unit/gram topical 1 applic topical BID PRN Skin 07/18/22 1 09/17/21 Unknown powder Irritation potassium chloride 20 mEq 20 meq PO BID 07/18/22 07/18/22 07/18/22 08:00 tablet,extended release Active Medications Generic Name Dose Route Start Last Admin Trade Name Freq PRN Reason Stop Dose Admin Atorvastatin Calcium 80 mg 07/18/22 21:00 07/18/22 21:29 Atorvastatin 40 Mg Tab PO 08/17/22 20:59 80 mg HS LIZZY Administration Docusate Sodium 100 mg 07/18/22 21:00 07/19/22 07:19 Docusate Sodium 100 Mg Cap PO 08/17/22 20:59 Not Given BID LIZZY Ergocalciferol 50,000 units 07/19/22 15:15 07/19/22 15:19 Ergocalciferol 50,000 Units 1250 Mcg Cap PO 08/18/22 15:14 Not Given Tu@0900 LIZZY Acetaminophen 1,000 mg in 100 mls @ 400 mls/hr 07/19/22 06:00 07/19/22 15:12 Ofirmev IV 07/22/22 03:44 Infused Q8H LIZZY Infusion Dextrose/Sodium Chloride 1,000 mls @ 80 mls/hr 07/19/22 16:15 07/19/22 16:25 D5w And Nss IV 07/20/22 04:44 80 mls/hr .[id number] LIZZY Administration Insulin Aspart 1 each 07/19/22 00:00 07/19/22 11:59 Insulin, Rapid-Acting Pump N/A 08/18/22 00:00 1 each Q6 LIZZY Administration Lactobacillus Acidophilus 2 cap 07/19/22 09:00 07/19/22 07:19 Advanced Probiotic 1250 Mg Capsule PO 08/18/22 08:59 Not Given QAM LIZZY Protocol Levothyroxine Sodium 175 mcg 07/19/22 06:30 07/19/22 06:05 Levothyroxine Sodium 175 Mcg Tablet PO 08/18/22 06:29 Not Given DAILYBB LIZZY Magnesium Oxide 400 mg 07/19/22 09:00 07/19/22 07:19 Magnesium Oxide 400 Mg Tab PO 08/18/22 08:59 Not Given QAM LIZZY Metoprolol Tartrate 12.5 mg 07/18/22 21:00 07/19/22 08:14 Metoprolol Tartrate 25 Mg Tab PO 08/17/22 20:59 12.5 mg BID LIZZY Administration Nystatin 1 appln 07/18/22 21:00 07/19/22 08:13 Nystatin Powder 15gm Btl EXT 08/17/22 20:59 1 appln BID LIZZY Administration Potassium Chloride 20 meq 07/18/22 21:00 07/19/22 07:20 Potassium Chloride Crtab 20 Meq Tabcr PO 08/17/22 20:59 Not Given BID LIZZY Past Medical History Medical History Aortic stenosis s/p porcine valve replacement (2015) + CABG x1 Follows with [facility] [place] cardio CAD (coronary artery disease) s/p CABG x 1 (2015) CKD (chronic kidney disease), stage III Constipation Diabetes mellitus type 1 + Insulin pump Diabetic nephropathy associated with type 1 diabetes mellitus Diabetic ulcer of left foot Follows with [facility] wound clinic. Last visit 06/07/22- left diabetic foot ulcer "Wounds are stable deteriorated. No debridement performed." PT REPORTS LAST VISIT A FEW WEEKS AGO...NEED FOR SX Dyslipidemia GERD (gastroesophageal reflux disease) History of Clostridium difficile infection s/p treatment (2020) History of colon polyps ALL NEGATIVE PER PT 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) History of osteomyelitis left foot Hx MRSA infection 01/2022 (left heel) Hx of renal calculi Hypertension Hypothyroidism Infection LLE - REASON FOR UPCOMING SX/CURRENT ABX TX FOR Insulin pump in place Osteoarthritis Osteoporosis Proliferative diabetic retinopathy associated with type 1 diabetes mellitus PVD (peripheral vascular disease) s/p B/L iliac artery stents (2014), R common/external iliac (2017), R common femoral endarterectomy (11/2018) with bovine patch. Left femoral to PT composite bypass graft (06/2020) Past Family History Family History Brother Family history of diabetes mellitus Sister Family history of diabetes mellitus Mother Family history of diabetes mellitus Grandmother (Maternal) Family history of diabetes mellitus Uncle Family hx of colon cancer Colorectal cancer Father Family history of esophageal cancer Sister Family history of diabetes mellitus Other No family history of adverse response to anesthesia Denies family history of Ovarian cancer Prostate cancer Myocardial infarction Breast cancer Past Surgical History Surgical History Below-knee amputation of right lower extremity H/O cataract extraction R/L H/O endarterectomy R common femoral (11/2018) H/O vascular surgery Right Femoral to Posterior tibial Prosthetic Bypass Graft(Right) History of ankle surgery LEFT ANKLE +HARDWARE REMOVED History of aortic valve replacement 2016 ([facility] [place]) History of arterial bypass of lower extremity Left femoral to PT composite bypass graft (06/2020) History of cardiac cath x2, most recent 2016 > no stents (subsequent CABG with AVR in 2016); [facility] History of carpal tunnel release R/L History of colonoscopy History of coronary artery bypass graft CABG x1 + AVR (2016) History of esophagogastroduodenoscopy (EGD) History of myringotomy w/tubes bilat. History of open reduction and internal fixation (ORIF) procedure LLE () History of skin graft Split Thickness Skin Graft of Left Lateral Ankle (11/18/20): LMA#5, atraumatic x1 at [facility] History of tonsillectomy History of tooth extraction History of umbilical hernia repair Hx of cystoscopy w/stent placement; stent then removed Hx of surgical procedure Left Leg Wound Debridement and Irrigation S/P femoropopliteal bypass surgery Right fem-pop bypass graft (01/19/21): Grade 2 view, MAC 3.0, ETT 8.[address] [facility] S/P insertion of iliac artery stent B/L iliac stent placement (2014) 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 Left transmetatarsal amputation (11/23/21): LMA# [address] [facility]. No issues noted per post-op anesthesia progress note. HX 1 SX TO REMOVE ALL TOES LEFT FOOT NOVEMBER 2021 Social History Smoking Status: Former smoker tobacco type: cigarettes Hx Alcohol Use: No Alcohol type: beer alcohol intake frequency: holidays/special occasions only Hx Substance Use: No substance use type: does not use Physical Exam Vital Signs Last Vital Signs Temp 98.2 F 07/19/22 15:27 Pulse 67 07/19/22 15:27 Resp 16 07/19/22 15:27 BP 144/80 H 07/19/22 15:27 Pulse Ox 95 07/19/22 15:27 O2 Del Method 07/19/22 15:27 Testing Laboratory Results 07/19/22 09:00 07/19/22 09:00 Blood Type A Positive 07/18/22 18:31 Antibody Screen NEGATIVE 07/18/22 18:31 Electrocardiogram Date: 07/19/22 Findings: + NSR @ and + RBBB Echocardiogram Date: 07/11/22 LV Function: normal Valvular Disease: + no significant valvular disease
[2022-07-19] MEDS ORDERED: ONDANSETRON INJ 2 MG/ML 2 ML VIAL ONE ×2 (17:18→20:33)
[2022-07-19] MEDS ORDERED: PROPOFOL IV EMULSION 10 MG/ML 20 ML VIAL IV ONE (17:18)
[2022-07-19] MEDS ORDERED: LIDOCAINE 2% 2 ML VIAL/AMP(20MG/ML) INFIL ONE (17:18)
[2022-07-19] MEDS ORDERED: fentaNYL citrate 100 MCG/2 ML VIAL ONE ×3 (17:18→20:52)
[2022-07-19] MEDS ORDERED: ROCURONIUM BROMIDE 10 MG/ML 5 ML VIAL IV ONE (17:18)
--- NOTE | 2022-07-19 17:39 | History & Physical Bridge Note ---
Date of Service July 19, 2022 History & Physical Bridge Note I have examined the patient, reviewed the History & Physical and in the interval since the performance of the History & Physical I have noted the following changes of clinical significance: no changes noted
[2022-07-19] MEDS ORDERED: DEXTROSE 50% 50 ML SYRINGE IV STA (17:41)
[2022-07-19 18:15] LABS: Adenovirus F 40/41 PCR Not Detected (NotDetected); Astrovirus PCR Not Detected (NotDetected); Campylobacter PCR Not Detected (NotDetected); Cryptosporidium PCR Not Detected (NotDetected); Cyclospora cayetanensis PCR Not Detected (NotDetected); Entamoeba histolytica PCR Not Detected (NotDetected); Enteroaggregative E.coli(EAEC) Not Detected (NotDetected); Enteropathogenic E.coli (EPEC) Not Detected (NotDetected); Enterotoxigenic E.coli (ETEC) Not Detected (NotDetected); Giardia lamblia PCR Not Detected (NotDetected); Norovirus GI/GII PCR Not Detected (NotDetected); Plesiomonas shigelloides PCR Not Detected (NotDetected); Rotavirus A PCR Not Detected (NotDetected); Salmonella PCR Not Detected (NotDetected); Sapovirus PCR Not Detected (NotDetected); Shiga-like Toxin E.coli (STEC) Not Detected (NotDetected); Shigella/Enteroinvasive E.coli Not Detected (NotDetected); Vibrio cholerae PCR Not Detected (NotDetected); Vibrio species PCR Not Detected (NotDetected); Yersinia enterocolitica PCR Not Detected (NotDetected)
[2022-07-19] MEDS ORDERED: SUGAMMADEX SODIUM 200 MG/2 ML VIAL IV ONE (18:56)
[2022-07-19] MEDS ORDERED: LIDOCAINE 1% LOCAL 20 ML VIAL ONE (20:02)
[2022-07-19] MEDS ORDERED: BUPIVACAINE 0.5 % 5 MG/1 ML MPF 30ML VIAL ONE (20:03)
--- NOTE | 2022-07-19 20:12 | Operative Report ---
Post Operative Report Pre & Post Diagnosis Operation Date: 07/19/22 10:10 Pre-Op Diagnosis: Delayed surgical wound healing left below knee amputation Post-Op Diagnosis: Delayed surgical wound healing left below knee amputation I identified the patient and participated in the time-out.: Yes Procedure Operation Date: 07/19/22 10:10 Actual Procedures p Left Leg Irrigation and Debridement and Above Knee Amputation(Left) - Xander Soto MD Surgeon Xander Soto MD Director [employer] Cori Graves physicians assistant vice president Joel Crooks fellow Estimated Blood Loss 125 Findings Consistent with Post-Op Diagnosis Specimens Above-knee amputation Anesthesia Type General Regional Complications none Disposition Accompanied Patient To Recovery: No Disposition: Recovery Room Indications Augustine is 67 years old. Peripheral vascular disease and diabetes. 2 and half weeks ago had a below-knee amputation and is experienced delayed wound healing. There is marginal necrosis serous drainage and incomplete wound healing. I recommended wound exploration possible irrigation debridement versus revision below-knee amputation versus above-knee amputation. Description of Procedure Informed consent obtained. Patient identified. He identified the operative site as the left leg. I marked with my initials. Preoperative surgical timeout performed. Preop dose of IV antibiotics given. He was taken to the OR positioned supine on the OR table. No tourniquet was applied. Postoperative DVT prophylaxis with early mobility. Aspirin versus Lovenox. The sutures were removed. There was a area 6 to 8 cm long of full-thickness black eschar marginal necrosis 1 to 1-1/2 cm wide. Beneath this was serous and purulent material with necrotic avascular tissue. In total at least 50% and likely as much is two thirds of the incision at this point simply fell apart with removal of the sutures and was not healed. There was only several centimeters that I would say was truly functionally healed. Serous drainage was noted and a culture was obtained. I opened up the muscle/fascial repair. The gastrocsoleus was a contractile dark in color and not bleeding. There was some minimal bleeding for medial and lateral but other than that essentially a vascular necrotic tissue. Based upon these findings I felt that any attempt to salvage the below-knee amputation was unlikely to be successful due to the poor circulation and poor health of the tissue. Therefore I elected to proceed with below-knee amputation which Mr. Chowdhury and I had discussed several times preoperatively. The leg was prescribed with Betadine and then prepped with Betadine paint. This was done prior to opening up the wound but after the sutures had been removed. I marked out the above-knee amputation. The thigh was 14 cm in width. A 7 cm flap proximal and distal was created beginning at the superior pole of patella and proceeding proximally. [place] anterior and posterior incisions were made. These incisions were made with electrocautery there was good healthy bleeding tissue which required a fair amount of attention to achieve hemostasis. The soft tissues were incised through the subcutaneous layer and then through quad tendon and muscle. Laterally the vastus lateralis was transected in line with the incision followed by the biceps femoris and IT band. Medially the vastus medialis oblique us was transected. This was then carried posteriorly to release the abductors. The sciatic nerve was identified ligated and amputated and allowed to retract. There was a small bleeder associated with the sciatic nerve when it retracted. This area was packed off and due to the retraction I could not locate the sciatic nerve. There was no significant bleeding encountered. After having packed this off with a sponge. This was a small vessel. The femoral sheath was identified and a graft was then placed. This was carefully dissected out. It was double clamped and proximal and single distal. The clamps were removed and there was no blood flow through the graft. It was then triply ligated with 0 silk and the graft was cut at the level of the amputation. Other small vessels were singly ligated with 0 silk. Stick ties were utilized were appropriate. The femur was then amputated at thelevel of the apex of the [place] incision. The ends were beveled and rasped. Meticulous hemostasis was performed and copious pulsatile lavage with 3 L of saline was done. There is no significant bleeding. We then reapproximated the anterior fascia to the posterior fascia using #1 Vicryl. A drain was inserted deep and brought out anteromedially. The subcutaneous tissues were closed with 0 Vicryl followed by 2-0 Vicryl and 3-0 nylon on the skin using near far far near sutures simple sutures and horizontal mattress stitches. Local anesthetic half percent Marcaine 1% lidocaine was injected into the skin for perioperative analgesia. The this was a tension-free closure with a adequate soft tissue. The leg was cleaned wet and dry sponges and a bulky soft roll dressing was applied Xeroform 4 x 4's ABDs soft wrap and an James wrap. Patient was then awake from anesthesia without difficulty taken to the recovery room in stable condition. There were no complications. Counts were correct. Blood loss 125 cc. There was a culture obtained from the BKA stump and the amputated limb was sent for specimen. At the conclusion the operation I discussed my findings and recommendations with patient's family. The plan will be admit him to the hospital. PT. DVT prophylaxis. Postop antibiotics. A installation service representative fluoroscopic images was obtained. I attest to the content of the Intraoperative Record and any orders documented therein. Any exceptions are noted below.
--- NOTE | 2022-07-19 20:48 | Anesthesiology Progress Note ---
Date of Service July 19, 2022 Anesthesia Post Procedure Vital Signs Vital Signs: Temp Pulse Pulse Resp BP Pulse Ox O2 Del Method 07/19/22 20:45 76 22 118/59 L 99 Room Air 07/19/22 20:35 78 22 153/58 H 99 Room Air 07/19/22 20:25 97.7 F 78 12 130/62 99 Room Air 07/19/22 17:23 97.5 F L 68 18 134/66 98 Room Air 07/19/22 15:27 98.2 F 67 16 144/80 H 95 Room Air 07/19/22 08:10 98.4 F 68 16 115/67 95 Room Air Pain Intensity Left Leg: Pain Intensity: 3 Transfer of Care Handoff Completed per policy Notes Mental Status: alert / awake / arousable and participated in evaluation Patient Amnestic to Procedure: Yes Nausea / Vomiting: adequately controlled Pain: adequately controlled Airway Patency, RR, SpO2: stable & adequate BP & HR: stable & adequate Hydration State: stable & adequate Anesthetic Complications: no major complications apparent and Pt Satisfied with anesthetic care
--- NOTE | 2022-07-19 21:07 | Fluoroscopy Report ---
INTRAOPERATIVE RADIOGRAPH CLINICAL HISTORY: Above-knee amputation. Fluoroscopy time: 7 seconds. FINDINGS: 2 spot fluoroscopic views of the left knee are presented. The initial image shows a surgica l probe projecting over the distal femoral shaft. Cerclage wires are noted in the patella. Vascular s tents are present in the femoral artery. On the second image there has been above-knee amputation. IMPRESSION: Intraoperative images from left above-knee amputation as above. See operative report for detailed findings. Electronically signed by: Tae Pizarro M.D. 07/19/2022 9:06 PM
[2022-07-19] MEDS ORDERED: traMADol HCL 50 MG TABLET PO PRN (21:49)
[2022-07-19] MEDS ORDERED: DOCUSATE SODIUM 100 MG CAP PO PRN (21:49)
[2022-07-19] MEDS ORDERED: VANCOMYCIN CONSULT ACTIVE PRN (21:49)
[2022-07-19] MEDS ORDERED: NALOXONE HCL 0.4 MG/1 ML VIAL/CARP IV PRN (21:49)
[2022-07-19] MEDS ORDERED: NYSTATIN POWDER 15GM BTL EXT PRN (21:49)
[2022-07-19] MEDS: KETOROLAC TROMETHAMINE 15 MG/ML VIAL IV SCH (22:21)
[2022-07-19] MEDS: ATORVASTATIN 40 MG TAB PO SCH (22:23)
[2022-07-19] MEDS: FERROUS SULFATE 325 MG TAB PO SCH (22:24)
[2022-07-19] MEDS ORDERED: VANCOMYCIN HCL 2,000 MG in SODIUM CHLORIDE 0.9% 500 ML IV ONE (23:00)
[2022-07-19] MEDS: HYDROmorphone INJ 1 MG/ML SYRINGE IV PRN (23:34)
--- NOTE | 2022-07-20 00:22 | Pharmacy Report ---
Pharmacy PK ABX Note - Date of Service July 20, 2022 - Assessment and Plan Assessment 67 year old M receiving VANCOMYCIN for treatment of SST, s/p I&D 07/19/22 due to delayed wound healing from L BKA ~3 weeks ago. Pertinent microbiologic data includes: L leg culture pending. Plan Vancomycin * Loading dose: 2000 mg IV x 1 * Maintenance dose: 1250 mg IV every 12 hours * Regimen is predicted to achieve target AUC/SÁNCHEZ of 400-600 mg/L.hr Pharmacy will continue to follow and will adjust dose/frequency as necessary. Thank you. Pharmacy has transitioned to AUC monitoring for vancomycin. AUC/SÁNCHEZ is the preferred PK/PD target and is associated with decreased risk of nephrotoxicity compared to traditional trough targets.
[2022-07-20] MEDS ORDERED: Nursing to Pharmacy Communication SCH (00:45)
[2022-07-20] MEDS: oxyCODONE HCL IR 5 MG TAB (IMMEDIATE RELEASE) PO PRN ×2 (01:46→13:22)
[2022-07-20] MEDS ORDERED: TRANEXAMIC ACID / 0.7% NACL 1,000 MG/100 ML BAG IV SCH (02:30)
[2022-07-20] MEDS: KETOROLAC TROMETHAMINE 15 MG/ML VIAL IV SCH ×3 (04:05→17:38)
[2022-07-20] MEDS: HYDROmorphone INJ 1 MG/ML SYRINGE IV PRN (05:22)
[2022-07-20] MEDS: ACETAMINOPHEN 1,000 MG/100 ML VIAL IV SCH ×3 (05:22→21:07)
[2022-07-20] MEDS: LEVOTHYROXINE SODIUM 175 MCG TABLET PO SCH (05:29)
[2022-07-20 07:28] LABS: Hematocrit (blood only) 23.3 % (40.1-51.0); Hemoglobin 7.4 g/dl (14.0-18.0); Mean Corpuscular Hemoglobin 27.7 pg (25.0-34.0); Mean Corpuscular Hgb Conc 31.8 g/dL (32.0-36.0); Mean Corpuscular Volume 87.3 fL (80.0-100.0); Mean Platelet Volume 9.1 fL (9.4-12.4); Platelet Count 402 K/uL (130-400); RDW Coefficient of Variation 13.7 % (11.5-14.5); RDW Standard Deviation 43.2 fL (36.4-46.3); Red Blood Count 2.67 M/uL (4.63-6.08); White Blood Count 17.69 K/ul (4.8-10.8)
[2022-07-20 07:47] LABS: Calcium 7.9 mg/dl (8.5-10.1); Creatinine Clr Calc Pharmacy 100.4 ml/min; Est GFR (African American) 114.1 ml/min; Est GFR (Non-African American) 98.5 ml/min; Magnesium 1.7 mg/dl (1.7-2.4)
[2022-07-20] MEDS ORDERED: VANCOMYCIN HCL 1,250 MG in SODIUM CHLORIDE 0.9% 250 ML IV SCH (08:00)
[2022-07-20 08:03] LABS: Thyroid Stimulating Hormone 6.275 uIu/ml (0.300-4.500)
[2022-07-20] MEDS ORDERED: SODIUM CHLORIDE 0.9% 250 ML IV PRN (08:09)
[2022-07-20 08:36] LABS: T4 Free Thyroxine 0.91 ng/dl (0.61-1.60)
[2022-07-20] MEDS: ASPIRIN 81 MG ECTAB PO SCH (08:36)
[2022-07-20] MEDS: CHLORTHALIDONE 25 MG TAB PO SCH (08:36)
[2022-07-20] MEDS: ADVANCED PROBIOTIC 1250 MG CAPSULE PO SCH (08:37)
[2022-07-20] MEDS: CLOPIDOGREL BISULFATE 75 MG TAB PO SCH (08:37)
[2022-07-20] MEDS: MAGNESIUM OXIDE 400 MG TAB PO SCH (08:37)
[2022-07-20] MEDS: DOCUSATE SODIUM 100 MG CAP PO SCH ×2 (08:38→21:02)
[2022-07-20] MEDS: FOLIC ACID 1 MG TAB PO SCH (08:38)
[2022-07-20] MEDS: METOPROLOL TARTRATE 25 MG TAB PO SCH ×2 (08:39→21:02)
[2022-07-20] MEDS: CALCITRIOL 0.25 MCG CAPSULE PO SCH (08:39)
[2022-07-20] MEDS: POTASSIUM CHLORIDE CRTAB 20 MEQ TABCR PO SCH ×2 (08:39→21:02)
[2022-07-20] MEDS: FERROUS SULFATE 325 MG TAB PO SCH ×2 (08:40→21:02)
[2022-07-20] MEDS: MULTIVITAMIN TAB PO SCH (08:40)
[2022-07-20] MEDS: INSULIN, Rapid-Acting PUMP SCH ×4 (08:41→21:03)
[2022-07-20] MEDS: NYSTATIN POWDER 15GM BTL EXT SCH ×2 (08:41→20:56)
--- NOTE | 2022-07-20 11:29 | Hospitalist Progress Note ---
Date of Service July 20, 2022 Assessment & Plan (1) Delayed surgical wound healing: Plan: S/p left AKA with Dr. Soto on 06/18. - With some expected acute blood loss -> Receiving 1 unit PRBCs today. - Monitor labs in AM - Continue vancomycin per primary team (2) Diabetes mellitus type 1: Plan: Patient with home insulin pump -- reporting good control of sugars at home. Last A1c 7.4 (note chronic anemia, could be false). - Blood sugars 71 - 160 in last 24 hours. (3) CKD (chronic kidney disease) stage 2, GFR 60-89 ml/min: Plan: Cr stable at 0.7 today. - On chlorthalidone (4) CAD (coronary artery disease): Plan: S/p CABG x 1 (2015).Aortic Stenosis S/P porcine AV. - Continue ASA/Plavix, metoprolol, statin (5) PAD (peripheral artery disease): Plan: Prior history of B/L iliac artery stents (2014), R common/external iliac (2017), R common femoral endarterectomy (11/2018) with bovine patch. Left femoral to PT composite bypass graft (06/2020). S/P L fem-anterior tibial bypass with Dr Eason on 11/19/21, now w/ L AKA. -Continue Plavix/ASA as above (6) Hypothyroidism: Plan: TSH low last admission; now in good range at 6.3. - Continue levothyroxine 175 mcg daily (7) Hypertension: Plan: Stable today at 115/70. - Continue chlorthalidone, metoprolol (8) Dyslipidemia: Plan: - Continue statin Admission and Anticipated Discharge Date Admission Date: July 18, 2022 Subjective Doing well today. Not a lot of pain in the left amputation site if he has nursing give pain meds. Reports no fevers/chills, chest pain, shortness of breath, abdominal pain, nausea, or vomiting. Physical Exam Constitutional: WD/WN, vitals as above Eyes: EOM intact bilaterally; no conjunctival abnormality ENMT: external ear and nose normal, oropharynx normal Neck: trachea midline, no thyromegaly normal visual inspection Respiratory: normal respiratory effort, lungs clear to auscultation no respiratory distress Cardiovascular: RRR, no murmur, no edema Gastrointestinal (Abdomen): Inspection/Auscultation: abdomen normal to inspection; abdomen not distended Musculoskeletal: Right BKA well-healed. Left AKA with bandage over. Skin: no rashes, warm and dry Neurologic: moves all extremities and awake Psychiatric: Orientation: alert, oriented to person and cooperative Results & Data Results & Data ([facility]) Vital Signs (Past 12 Hours) Vital Signs Temp Pulse Pulse Resp BP BP Pulse Ox 07/20/22 10:25 36 C L 70 16 114/71 99 07/20/22 09:55 36.6 C 78 16 105/64 97 07/20/22 09:25 36.6 C 76 18 123/52 L 97 07/20/22 08:50 36.1 C L 79 18 139/80 97 07/20/22 07:59 36.8 C 73 14 124/71 97 07/20/22 03:00 36.4 C L 70 17 104/66 100 07/20/22 01:20 36.5 C 68 17 102/63 97 O2 Del Method 07/20/22 10:25 07/20/22 09:55 07/20/22 09:25 07/20/22 08:50 07/20/22 07:59 Room Air 07/20/22 03:00 Room Air 07/20/22 01:20 Room Air PG Care Time/CCT Total # of Minutes Spent Total Time Spent with Patient: Total time spent is greater than 50% in coordination of care (as documented) at patient's floor/unit and/or counseling patient: Coding Level of Care Code 96388 Subseq Hosp Care Lvl 3 Diagnoses Delayed surgical wound healing T81.89XA Diabetes mellitus type 1 E10.9 CKD (chronic kidney disease) stage 2, GFR 60-89 ml/min N18.2 CAD (coronary artery disease) I25.10 Coronary Disease-Associated Artery/Lesion type: [place] artery [place] vs. transplanted heart: [place] heart Associated angina: without angina PAD (peripheral artery disease) I73.9 Hypothyroidism E03.9 Hypothyroidism type: unspecified Hypertension I10 Hypertension type: unspecified Dyslipidemia E78.5 (1) CAD (coronary artery disease) Coronary Disease-Associated Artery/Lesion type: [place] artery [place] vs. transplanted heart: [place] heart Associated angina: without angina Qualified Code(s): I25.10 - Atherosclerotic heart disease of [place] coronary artery without angina pectoris (2) Hypothyroidism Hypothyroidism type: unspecified Qualified Code(s): E03.9 - Hypothyroidism, unspecified (3) Hypertension Hypertension type: unspecified Qualified Code(s): I10 - Essential (primary) hypertension
--- NOTE | 2022-07-20 12:05 | Orthopedic Progress Note ---
Date of Service July 20, 2022 Assessment & Plan (1) Delayed surgical wound healing: Plan: I know thank you thank you appreciated postop day 1-status post above-knee amputation with Dr. Soto on July 19. Needs to be nonweightbearing left lower extremity. May be out of bed, weight-bear as tolerated on right lower extremity with the assistance of a walker and his prosthesis. Physical therapy and Occupational Therapy today. Plavix was resumed this morning. Will continue the vancomycin for approximately 2 to 3 days twice daily. Then may be discharged to home on oral antibiotics. Will leave postoperative dressings in place today and plan for dressing change and incision check tomorrow. Ice and elevation as needed for pain or swelling. Pain medication as prescribed. Some medications were continued and a glycemic consult was placed as well. Appreciate hospitalist assistance for medical management. Case management for disposition needs. He would like to go home with home health this admission. (2) Acute blood loss anemia: Plan: Patient had acute blood loss anemia. He was given 1 unit of packed red blood cells today. He tolerated the transfusion. A transfusion was currently in fusing at the time of my visit. Will reeval hemoglobin and hematocrit tomorrow morning. Please notify us if he becomes symptomatic. Admission and Anticipated Discharge Date Admission Date: July 18, 2022 Subjective Patient is resting in bed. He is pleasant and smiling today. No significant discomfort. He has not been out of bed. He is awaiting physical therapy. His left leg stump is elevated on a pillow. Physical Exam Musculoskeletal: Exam of his left leg: Dressings are clean, dry and intact. Not removed today. He tolerates gentle range of motion of his left hip without discomfort. Results & Data ([facility]) Vital Signs (Past 12 Hours) Vital Signs Temp Pulse Pulse Resp BP BP Pulse Ox 07/20/22 10:51 36.7 C 70 16 102/53 L 99 07/20/22 10:25 36 C L 70 16 114/71 99 07/20/22 09:55 36.6 C 78 16 105/64 97 07/20/22 09:25 36.6 C 76 18 123/52 L 97 07/20/22 08:50 36.1 C L 79 18 139/80 97 07/20/22 07:59 36.8 C 73 14 124/71 97 07/20/22 03:00 36.4 C L 70 17 104/66 100 07/20/22 01:20 36.5 C 68 17 102/63 97 O2 Del Method 07/20/22 10:51 07/20/22 10:25 07/20/22 09:55 07/20/22 09:25 07/20/22 08:50 07/20/22 07:59 Room Air 07/20/22 03:00 Room Air 07/20/22 01:20 Room Air Laboratory Results 07/20/22 07/20/22 07/20/22 Range/Units 07:36 07:13 07:13 WBC 17.69 H (4.8-10.8) K/ul RBC 2.67 L (4.63-6.08) M/uL Hgb 7.4 L (14.0-18.0) g/dl Hct 23.3 L (40.1-51.0) % MCV 87.3 (80.0-100.0) fL MCH 27.7 (25.0-34.0) pg MCHC 31.8 L (32.0-36.0) g/dL RDW Std Deviation 43.2 (36.4-46.3) fL RDW Coeff of Chan 13.7 (11.5-14.5) % Plt Count 402 H (130-400) K/uL MPV 9.1 L (9.4-12.4) fL Sodium 136 (136-145) mmol/L Potassium 4.0 (3.5-5.1) mmol/L Chloride 104 (98-107) mmol/L Carbon Dioxide 27 (21-32) mmol/L Anion Gap 5 (3-11) BUN 22 (6-23) mg/dl Creatinine 0.71 (0.6-1.4) mg/dl Est Cr Clr Drug Dosing 100.4 ml/min Est GFR ( Amer) 114.1 ml/min Est GFR (Non-Af Amer) 98.5 ml/min BUN/Creatinine Ratio 31.0 H (10-20) Glucose 140 H (70-99(Fasting)) mg/dl POC Glucose 158 H (70-99) mg/dl Calcium 7.9 L (8.5-10.1) mg/dl Magnesium 1.7 (1.7-2.4) mg/dl TSH (0.300-4.500) uIu/ml Free T4 (0.61-1.60) ng/dl Stl C. [place]ensis PCR (NotDetected) Stool Rotavirus A PCR (NotDetected) Stl Adenov F 40/41 PCR (NotDetected) Stool Astrovirus (PCR) (NotDetected) Stool Campylobacter PCR (NotDetected) Stool Cryptosporidium PCR (NotDetected) Stl E.coli Shiga Tox PCR (NotDetected) Stl Enterotoxigenic E PCR (NotDetected) Stool EPEC (PCR) (NotDetected) Stool EAEC (PCR) (NotDetected) Stl E. histolytica PCR (NotDetected) Stool Giardia Lamblia PCR (NotDetected) Stool Salmonella PCR (NotDetected) Stool Sapovirus (PCR) (NotDetected) Stl P. shigelloides PCR (NotDetected) Stl Shigella/EIEC PCR (NotDetected) St Y.enterocolitica PCR (NotDetected) Stool Vibrio (PCR) (NotDetected) Stl Vibrio cholerae PCR (NotDetected) Stl Norovirus GI/GII PCR (NotDetected) Blood Type Antibody Screen Crossmatch 07/20/22 07/19/22 07/19/22 Range/Units 07:13 20:28 19:32 WBC (4.8-10.8) K/ul RBC (4.63-6.08) M/uL Hgb (14.0-18.0) g/dl Hct (40.1-51.0) % MCV (80.0-100.0) fL MCH (25.0-34.0) pg MCHC (32.0-36.0) g/dL RDW Std Deviation (36.4-46.3) fL RDW Coeff of Chan (11.5-14.5) % Plt Count (130-400) K/uL MPV (9.4-12.4) fL Sodium (136-145) mmol/L Potassium (3.5-5.1) mmol/L Chloride (98-107) mmol/L Carbon Dioxide (21-32) mmol/L Anion Gap (3-11) BUN (6-23) mg/dl Creatinine (0.6-1.4) mg/dl Est Cr Clr Drug Dosing ml/min Est GFR ( Amer) ml/min Est GFR (Non-Af Amer) ml/min BUN/Creatinine Ratio (10-20) Glucose (70-99(Fasting)) mg/dl POC Glucose 95 102 H (70-99) mg/dl Calcium (8.5-10.1) mg/dl Magnesium (1.7-2.4) mg/dl TSH 6.275 H (0.300-4.500) uIu/ml Free T4 0.91 (0.61-1.60) ng/dl Stl C. [place]ensis PCR (NotDetected) Stool Rotavirus A PCR (NotDetected) Stl Adenov F 40/41 PCR (NotDetected) Stool Astrovirus (PCR) (NotDetected) Stool Campylobacter PCR (NotDetected) Stool Cryptosporidium PCR (NotDetected) Stl E.coli Shiga Tox PCR (NotDetected) Stl Enterotoxigenic E PCR (NotDetected) Stool EPEC (PCR) (NotDetected) Stool EAEC (PCR) (NotDetected) Stl E. histolytica PCR (NotDetected) Stool Giardia Lamblia PCR (NotDetected) Stool Salmonella PCR (NotDetected) Stool Sapovirus (PCR) (NotDetected) Stl P. shigelloides PCR (NotDetected) Stl Shigella/EIEC PCR (NotDetected) St Y.enterocolitica PCR (NotDetected) Stool Vibrio (PCR) (NotDetected) Stl Vibrio cholerae PCR (NotDetected) Stl Norovirus GI/GII PCR (NotDetected) Blood Type Antibody Screen Crossmatch 07/19/22 07/19/22 07/18/22 Range/Units 17:27 16:30 18:31 WBC (4.8-10.8) K/ul RBC (4.63-6.08) M/uL Hgb (14.0-18.0) g/dl Hct (40.1-51.0) % MCV (80.0-100.0) fL MCH (25.0-34.0) pg MCHC (32.0-36.0) g/dL RDW Std Deviation (36.4-46.3) fL RDW Coeff of Chan (11.5-14.5) % Plt Count (130-400) K/uL MPV (9.4-12.4) fL Sodium (136-145) mmol/L Potassium (3.5-5.1) mmol/L Chloride (98-107) mmol/L Carbon Dioxide (21-32) mmol/L Anion Gap (3-11) BUN (6-23) mg/dl Creatinine (0.6-1.4) mg/dl Est Cr Clr Drug Dosing ml/min Est GFR ( Amer) ml/min Est GFR (Non-Af Amer) ml/min BUN/Creatinine Ratio (10-20) Glucose (70-99(Fasting)) mg/dl POC Glucose 71 (70-99) mg/dl Calcium (8.5-10.1) mg/dl Magnesium (1.7-2.4) mg/dl TSH (0.300-4.500) uIu/ml Free T4 (0.61-1.60) ng/dl Stl C. cayetanensis PCR Not Detected (NotDetected) Stool Rotavirus A PCR Not Detected (NotDetected) Stl Adenov F 40/41 PCR Not Detected (NotDetected) Stool Astrovirus (PCR) Not Detected (NotDetected) Stool Campylobacter PCR Not Detected (NotDetected) Stool Cryptosporidium PCR Not Detected (NotDetected) Stl E.coli Shiga Tox PCR Not Detected (NotDetected) Stl Enterotoxigenic E PCR Not Detected (NotDetected) Stool EPEC (PCR) Not Detected (NotDetected) Stool EAEC (PCR) Not Detected (NotDetected) Stl E. histolytica PCR Not Detected (NotDetected) Stool Giardia Lamblia PCR Not Detected (NotDetected) Stool Salmonella PCR Not Detected (NotDetected) Stool Sapovirus (PCR) Not Detected (NotDetected) Stl P. shigelloides PCR Not Detected (NotDetected) Stl Shigella/EIEC PCR Not Detected (NotDetected) St Y.enterocolitica PCR Not Detected (NotDetected) Stool Vibrio (PCR) Not Detected (NotDetected) Stl Vibrio cholerae PCR Not Detected (NotDetected) Stl Norovirus GI/GII PCR Not Detected (NotDetected) Blood Type A Positive Antibody Screen NEGATIVE Crossmatch See Detail Diagnostic Findings INTRAOPERATIVE RADIOGRAPH CLINICAL HISTORY: Above-knee amputation. Fluoroscopy time: 7 seconds. FINDINGS: 2 spot fluoroscopic views of the left knee are presented. The initial image shows a surgical probe projecting over the distal femoral shaft. Cerclage wires are noted in the patella. Vascular stents are present in the femoral artery. On the second image there has been above-knee amputation. IMPRESSION: Intraoperative images from left above-knee amputation as above. See operative report for detailed findings.
[2022-07-20] MEDS: VANCOMYCIN HCL 1,250 MG in SODIUM CHLORIDE 0.9% 250 ML IV SCH (19:35)
[2022-07-20] MEDS: ATORVASTATIN 40 MG TAB PO SCH (21:01)
[2022-07-21] MEDS: oxyCODONE HCL IR 5 MG TAB (IMMEDIATE RELEASE) PO PRN ×2 (03:36→12:01)
[2022-07-21] MEDS: ACETAMINOPHEN 1,000 MG/100 ML VIAL IV SCH ×3 (05:05→22:07)
[2022-07-21] MEDS: LEVOTHYROXINE SODIUM 175 MCG TABLET PO SCH (05:06)
[2022-07-21 06:52] LABS: Hematocrit (blood only) 29.3 % (40.1-51.0); Mean Corpuscular Hgb Conc 34.1 g/dL (32.0-36.0); Mean Corpuscular Volume 84.9 fL (80.0-100.0); Mean Platelet Volume 9.5 fL (9.4-12.4); Platelet Count 341 K/uL (130-400); RDW Coefficient of Variation 13.7 % (11.5-14.5); RDW Standard Deviation 41.9 fL (36.4-46.3); Red Blood Count 3.45 M/uL (4.63-6.08); White Blood Count 12.18 K/ul (4.8-10.8)
[2022-07-21 07:36] LABS: BUN Creatinine Ratio 31.1 (10-20); Calcium 7.9 mg/dl (8.5-10.1); Creatinine Clr Calc Pharmacy 116.8 ml/min; Est GFR (African American) 121.5 ml/min; Est GFR (Non-African American) 104.8 ml/min; Potassium 3.5 mmol/L (3.5-5.1)
[2022-07-21] MEDS: VANCOMYCIN HCL 1,250 MG in SODIUM CHLORIDE 0.9% 250 ML IV SCH ×2 (08:38→20:38)
--- NOTE | 2022-07-21 09:16 | Pharmacy Report ---
Pharmacy Vanc AUC Short Note - Date of Service July 21, 2022 - Assessment & Plan Assessment 67 year old M receiving VANCOMYCIN for treatment of SSTI, s/p I&D 07/19/22 due to delayed wound healing from L BKA ~3 weeks ago. Pertinent microbiologic data includes: L leg culture preliminary with Gm negative bacilli. Discussed with provider and started cefepime for coverage since hx of pseudomonas. Provider wanting to continue both antibiotics for at least another 24 hours until discharge. Day # 3 of vancomycin therapy. Plan Vancomycin * AUC/SÁNCHEZ is the preferred PK/PD target for vancomycin * AUC guided dosing is effective and associated with decreased risk of nep hrotoxicity compared to traditional trough targets * Random level obtained this morning was ~14.6 mcg/ml - this dosing is predicted to achieve target AUC/SÁNCHEZ of 400-600 mg/L.hr and may be associated with a 8% risk of nephrotoxicity * Plan to continue same vancomycin dosing of 1250 mg iv q 12 hrs * Patient to likely be discharged tomorrow per provider if stable Pharmacy will continue to follow and will adjust dose/frequency as necessary. Thank you.
[2022-07-21] MEDS: METOPROLOL TARTRATE 25 MG TAB PO SCH ×2 (09:29→20:39)
[2022-07-21] MEDS: MULTIVITAMIN TAB PO SCH (09:29)
[2022-07-21] MEDS: ASPIRIN 81 MG ECTAB PO SCH (09:29)
[2022-07-21] MEDS: INSULIN, Rapid-Acting PUMP SCH ×4 (09:29→20:39)
[2022-07-21] MEDS: MAGNESIUM OXIDE 400 MG TAB PO SCH (09:29)
[2022-07-21] MEDS: CLOPIDOGREL BISULFATE 75 MG TAB PO SCH (09:30)
[2022-07-21] MEDS: CHLORTHALIDONE 25 MG TAB PO SCH (09:30)
[2022-07-21] MEDS: POTASSIUM CHLORIDE CRTAB 20 MEQ TABCR PO SCH ×2 (09:30→20:38)
[2022-07-21] MEDS: DOCUSATE SODIUM 100 MG CAP PO SCH ×2 (09:30→20:38)
[2022-07-21] MEDS: ADVANCED PROBIOTIC 1250 MG CAPSULE PO SCH (09:30)
[2022-07-21] MEDS: FOLIC ACID 1 MG TAB PO SCH (09:30)
[2022-07-21] MEDS: FERROUS SULFATE 325 MG TAB PO SCH ×2 (09:30→20:39)
[2022-07-21] MEDS: CALCITRIOL 0.25 MCG CAPSULE PO SCH (09:30)
[2022-07-21] MEDS: NYSTATIN POWDER 15GM BTL EXT SCH ×2 (09:37→20:39)
[2022-07-21] MEDS: HYDROmorphone INJ 0.5 MG/0.5 ML SYR IV PRN ×2 (10:17→17:03)
[2022-07-21] MEDS: CEFEPIME 2,000 MG in SYRINGE 0 ML IV SCH ×2 (10:22→17:57)
--- NOTE | 2022-07-21 14:15 | Hospitalist Progress Note ---
Date of Service July 21, 2022 Assessment & Plan (1) Delayed surgical wound healing: Plan: S/p left AKA with Dr. Soto on 06/18. - With some expected acute blood loss -> Received 2 units PRBCs on 07/20. Hgb now 10.0 on 07/21. - Monitor labs in AM - Continue vancomycin & cefepime per primary team (2) Diabetes mellitus type 1: Plan: Patient with home insulin pump -- reporting good control of sugars at home. Last A1c 7.4 (note chronic anemia, could be false). - Blood sugars 100 - 160 in last 24 hours. (3) CKD (chronic kidney disease) stage 2, GFR 60-89 ml/min: Plan: Cr stable at 0.6 today. - On chlorthalidone (4) CAD (coronary artery disease): Plan: S/p CABG x 1 (2015).Aortic Stenosis S/P porcine AV. - Continue ASA/Plavix, metoprolol, statin (5) PAD (peripheral artery disease): Plan: Prior history of B/L iliac artery stents (2014), R common/external iliac (2017), R common femoral endarterectomy (11/2018) with bovine patch. Left femoral to PT composite bypass graft (06/2020). S/P L fem-anterior tibial bypass with Dr Eason on 11/19/21, now w/ L AKA. -Continue Plavix/ASA as above (6) Hypothyroidism: Plan: TSH low last admission; now in good range at 6.3. - Continue levothyroxine 175 mcg daily (7) Hypertension: Plan: Stable today at 120/70. - Continue chlorthalidone, metoprolol (8) Dyslipidemia: Plan: - Continue statin Admission and Anticipated Discharge Date Admission Date: July 18, 2022 Subjective Doing well overall. No major concerns re constipation. Physical Exam Constitutional: WD/WN, vitals as above Eyes: EOM intact bilaterally; no conjunctival abnormality ENMT: external ear and nose normal, oropharynx normal Neck: trachea midline, no thyromegaly normal visual inspection Respiratory: normal respiratory effort, lungs clear to auscultation no respiratory distress Cardiovascular: RRR, no murmur, no edema Gastrointestinal (Abdomen): Inspection/Auscultation: abdomen normal to inspection; abdomen not distended Skin: no rashes, warm and dry Neurologic: moves all extremities and awake Psychiatric: Orientation: alert, oriented to person and cooperative Results & Data Results & Data ([facility]) Vital Signs (Past 12 Hours) Vital Signs Temp Pulse Resp BP Pulse Ox O2 Del Method 07/21/22 08:40 36.4 C L 68 16 120/69 96 Room Air PG Care Time/CCT Total # of Minutes Spent Total Time Spent with Patient: Total time spent is greater than 50% in coordination of care (as documented) at patient's floor/unit and/or counseling patient: Coding Level of Care Code 43360 Subseq Hosp Care Lvl 2 Diagnoses Delayed surgical wound healing T81.89XA Diabetes mellitus type 1 E10.9 CKD (chronic kidney disease) stage 2, GFR 60-89 ml/min N18.2 CAD (coronary artery disease) I25.10 Associated angina: without angina Coronary Disease-Associated Artery/Lesion type: [place] artery [place] vs. transplanted heart: [place] heart PAD (peripheral artery disease) I73.9 Hypothyroidism E03.9 Hypothyroidism type: unspecified Hypertension I10 Hypertension type: unspecified Dyslipidemia E78.5 (1) CAD (coronary artery disease) Associated angina: without angina Coronary Disease-Associated Artery/Lesion type: [place] artery [place] vs. transplanted heart: [place] heart Qualified Code(s): I25.10 - Atherosclerotic heart disease of [place] coronary artery without angina pectoris (2) Hypothyroidism Hypothyroidism type: unspecified Qualified Code(s): E03.9 - Hypothyroidism, unspecified (3) Hypertension Hypertension type: unspecified Qualified Code(s): I10 - Essential (primary) hypertension
--- NOTE | 2022-07-21 14:19 | Orthopedic Progress Note ---
Date of Service July 21, 2022 Assessment & Plan (1) Delayed surgical wound healing: Plan: postop day 2-status post above-knee amputation with Dr. Soto on July 19. Needs to be nonweightbearing left lower extremity. May be out of bed, weight-bear as tolerated on right lower extremity with the assistance of a walker and his prosthesis. Physical therapy and Occupational Therapy today. Continue Plavix. Will continue the vancomycin for approximately 2 to 3 days twice daily. Added cefepime 2 g IV to cover Pseudomonas. Ice and elevation as needed for pain or swelling. Pain medication as prescribed. Appreciate hospitalist assistance for medical management. Case management for disposition needs. He would like to go home with home health this admission. Plan for possible discharge to home tomorrow if safe out of bed and and Home PT arranged. (2) Acute blood loss anemia: Plan: H/H stable. Will continue to monitor. Asymptomatic. Admission and Anticipated Discharge Date Admission Date: July 18, 2022 Subjective Patient is resting in bed. No complaints of pain right now. Pain medication is helping. He does get waves of pain. He states he had more pain last night than he had in the past. His daughter is with him today. Physical Exam Musculoskeletal: Left leg dressings were removed. Incision is clean, dry and intact. Mild bloody drainage on the dressings. The skin is healthy and the skin edges are well approximated. No active bleeding. No evidence of hematoma or seroma. The thigh is mildly tender with palpation but no significant edema. No fracture blisters. Positive skin wrinkles. He has full range of motion of his left hip. Capillary fill is brisk. Results & Data ([facility]) Vital Signs (Past 12 Hours) Vital Signs Temp Pulse Resp BP Pulse Ox O2 Del Method 07/21/22 08:40 36.4 C L 68 16 120/69 96 Room Air Laboratory Results 07/21/22 07/21/22 07/21/22 Range/Units 08:30 06:18 06:18 WBC 12.18 H (4.8-10.8) K/ul RBC 3.45 L (4.63-6.08) M/uL Hgb 10.0 L (14.0-18.0) g/dl Hct 29.3 L (40.1-51.0) % MCV 84.9 (80.0-100.0) fL MCH 29.0 (25.0-34.0) pg MCHC 34.1 (32.0-36.0) g/dL RDW Std Deviation 41.9 (36.4-46.3) fL RDW Coeff of Chan 13.7 (11.5-14.5) % Plt Count 341 (130-400) K/uL MPV 9.5 (9.4-12.4) fL Sodium (136-145) mmol/L Potassium (3.5-5.1) mmol/L Chloride (98-107) mmol/L Carbon Dioxide (21-32) mmol/L Anion Gap (3-11) BUN (6-23) mg/dl Creatinine (0.6-1.4) mg/dl Est Cr Clr Drug Dosing ml/min Est GFR ( Amer) ml/min Est GFR (Non-Af Amer) ml/min BUN/Creatinine Ratio (10-20) Glucose (70-99(Fasting)) mg/dl POC Glucose 111 H (70-99) mg/dl Calcium (8.5-10.1) mg/dl Random Vancomycin 14.7 (10-20) mcg/ml Crossmatch 07/21/22 07/20/22 07/20/22 Range/Units 06:18 20:28 16:57 WBC (4.8-10.8) K/ul RBC (4.63-6.08) M/uL Hgb (14.0-18.0) g/dl Hct (40.1-51.0) % MCV (80.0-100.0) fL MCH (25.0-34.0) pg MCHC (32.0-36.0) g/dL RDW Std Deviation (36.4-46.3) fL RDW Coeff of Chan (11.5-14.5) % Plt Count (130-400) K/uL MPV (9.4-12.4) fL Sodium 133 L (136-145) mmol/L Potassium 3.5 (3.5-5.1) mmol/L Chloride 101 (98-107) mmol/L Carbon Dioxide 27 (21-32) mmol/L Anion Gap 5 (3-11) BUN 19 (6-23) mg/dl Creatinine 0.61 (0.6-1.4) mg/dl Est Cr Clr Drug Dosing 116.8 ml/min Est GFR ( Amer) 121.5 ml/min Est GFR (Non-Af Amer) 104.8 ml/min BUN/Creatinine Ratio 31.1 H (10-20) Glucose 106 H (70-99(Fasting)) mg/dl POC Glucose 126 H 121 H (70-99) mg/dl Calcium 7.9 L (8.5-10.1) mg/dl Random Vancomycin (10-20) mcg/ml Crossmatch 07/18/22 Range/Units 18:31 WBC (4.8-10.8) K/ul RBC (4.63-6.08) M/uL Hgb (14.0-18.0) g/dl Hct (40.1-51.0) % MCV (80.0-100.0) fL MCH (25.0-34.0) pg MCHC (32.0-36.0) g/dL RDW Std Deviation (36.4-46.3) fL RDW Coeff of Chan (11.5-14.5) % Plt Count (130-400) K/uL MPV (9.4-12.4) fL Sodium (136-145) mmol/L Potassium (3.5-5.1) mmol/L Chloride (98-107) mmol/L Carbon Dioxide (21-32) mmol/L Anion Gap (3-11) BUN (6-23) mg/dl Creatinine (0.6-1.4) mg/dl Est Cr Clr Drug Dosing ml/min Est GFR ( Amer) ml/min Est GFR (Non-Af Amer) ml/min BUN/Creatinine Ratio (10-20) Glucose (70-99(Fasting)) mg/dl POC Glucose (70-99) mg/dl Calcium (8.5-10.1) mg/dl Random Vancomycin (10-20) mcg/ml Crossmatch See Detail Microbiology 07/19/22 18:20 Gram Stain - Final Leg,Left Aerobic and Anaerobic Culture - Preliminary Morganella morganii
[2022-07-21] MEDS: ATORVASTATIN 40 MG TAB PO SCH (20:38)
[2022-07-22] MEDS: oxyCODONE HCL IR 5 MG TAB (IMMEDIATE RELEASE) PO PRN ×2 (01:07→08:51)
[2022-07-22] MEDS: CEFEPIME 2,000 MG in SYRINGE 0 ML IV SCH ×3 (01:09→17:58)
[2022-07-22] MEDS: LEVOTHYROXINE SODIUM 175 MCG TABLET PO SCH (05:53)
[2022-07-22] MEDS: VANCOMYCIN HCL 1,250 MG in SODIUM CHLORIDE 0.9% 250 ML IV SCH ×2 (08:37→19:47)
[2022-07-22] MEDS: CHLORTHALIDONE 25 MG TAB PO SCH (08:39)
[2022-07-22] MEDS: MAGNESIUM OXIDE 400 MG TAB PO SCH (08:39)
[2022-07-22] MEDS: METOPROLOL TARTRATE 25 MG TAB PO SCH ×2 (08:40→20:20)
[2022-07-22] MEDS: CALCITRIOL 0.25 MCG CAPSULE PO SCH (08:40)
[2022-07-22] MEDS: ADVANCED PROBIOTIC 1250 MG CAPSULE PO SCH (08:40)
[2022-07-22] MEDS: FOLIC ACID 1 MG TAB PO SCH (08:40)
[2022-07-22] MEDS: CLOPIDOGREL BISULFATE 75 MG TAB PO SCH (08:40)
[2022-07-22] MEDS: ASPIRIN 81 MG ECTAB PO SCH (08:41)
[2022-07-22] MEDS: DOCUSATE SODIUM 100 MG CAP PO SCH ×2 (08:41→20:20)
[2022-07-22] MEDS: MULTIVITAMIN TAB PO SCH (08:41)
[2022-07-22] MEDS: POTASSIUM CHLORIDE CRTAB 20 MEQ TABCR PO SCH ×2 (08:41→20:20)
[2022-07-22] MEDS: FERROUS SULFATE 325 MG TAB PO SCH ×2 (08:41→20:20)
[2022-07-22] MEDS: NYSTATIN POWDER 15GM BTL EXT SCH ×2 (08:42→20:20)
[2022-07-22] MEDS: INSULIN, Rapid-Acting PUMP SCH ×4 (09:38→20:24)
[2022-07-22 10:27] LABS: Creatinine Clr Calc Pharmacy 114.9 ml/min; Est GFR (African American) 120.7 ml/min; Est GFR (Non-African American) 104.1 ml/min
--- NOTE | 2022-07-22 10:33 | Orthopedic Progress Note ---
Date of Service July 22, 2022 Assessment & Plan (1) Delayed surgical wound healing: Plan: Postop day 3-status post above-knee amputation with Dr. Soto on July 19. Patient in a lot of pain this morning and he would like to stay another night for pain control Needs to be nonweightbearing left lower extremity. May be out of bed, weight-bear as tolerated on right lower extremity with the assistance of a walker and his prosthesis. Physical therapy and Occupational Therapy Continue Plavix Will continue the vancomycin for approximately 2 to 3 days twice daily. Added cefepime 2 g IV to cover Pseudomonas. Ice and elevation as needed for pain or swelling. Pain medication as prescribed - scheduled tylenol 625mg every 6 hours and oxycodone 5mg every 4 hours for moderate pain, 10mg for severe pain, dilaudid IV for breakthrough pain Appreciate hospitalist assistance for medical management Case management for disposition needs - patient would like to go home with [facility] Patient pain is not controlled this morning and he would like to stay another night, will re-eval in the afternoon Admission and Anticipated Discharge Date Admission Date: July 18, 2022 Subjective Pt seen and examined bedside this morning. He says that he is not doing very well because he is in a lot of pain. He rates his pain 8/10. He denies any dizziness, SOB, F/C. He is working with PT but difficult for him because moving around causes him a lot of pain. He feels that he needs to stay another night. Physical Exam Physical Exam: General: Pt laying in hospital bed AA&O, in NAD, calm and cooperative during exam Lower Extremity: Patient s/p AKA. Dressing in tact and not saturated. Thigh is compressible and soft. He has sensation in tact to upper thigh. Results & Data ([facility]) Vital Signs (Past 12 Hours) Vital Signs Temp Pulse Resp BP Pulse Ox O2 Del Method 07/22/22 07:32 36.8 C 72 16 159/81 H 95 Room Air Laboratory Results 07/22/22 07/22/22 Range/Units 09:18 08:12 Creatinine 0.62 (0.6-1.4) mg/dl Est Cr Clr Drug Dosing 114.9 ml/min Est GFR ( Amer) 120.7 ml/min Est GFR (Non-Af Amer) 104.1 ml/min POC Glucose 115 H (70-99) mg/dl
[2022-07-22] MEDS: ACETAMINOPHEN 325 MG TAB PO SCH ×3 (11:32→22:30)
[2022-07-22] MEDS: oxyCODONE HCL IR 5 MG TAB (IMMEDIATE RELEASE) PO SCH ×4 (12:18→23:53)
--- NOTE | 2022-07-22 13:03 | Hospitalist Progress Note ---
Date of Service July 22, 2022 Assessment & Plan (1) Delayed surgical wound healing: Plan: S/p left AKA with Dr. Soto on 06/18. - With some expected acute blood loss -> Received 2 units PRBCs on 07/20. Hgb now 10.0 on 07/21. - Continue vancomycin & cefepime per primary team - Will add Miralax to bowel regimen as he has not had a BM in several days. (2) Diabetes mellitus type 1: Plan: Patient with home insulin pump -- reporting good control of sugars at home. Last A1c 7.4 (note chronic anemia, could be false). - Blood sugars 100 - 120 in last 24 hours. (3) CKD (chronic kidney disease) stage 2, GFR 60-89 ml/min: Plan: Cr stable at 0.6 today. - On chlorthalidone (4) CAD (coronary artery disease): Plan: S/p CABG x 1 (2015).Aortic Stenosis S/P porcine AV. - Continue ASA/Plavix, metoprolol, statin (5) PAD (peripheral artery disease): Plan: Prior history of B/L iliac artery stents (2014), R common/external iliac (2017), R common femoral endarterectomy (11/2018) with bovine patch. Left femoral to PT composite bypass graft (06/2020). S/P L fem-anterior tibial bypass with Dr Eason on 11/19/21, now w/ L AKA. -Continue Plavix/ASA as above (6) Hypothyroidism: Plan: TSH low last admission; now in good range at 6.3. - Continue levothyroxine 175 mcg daily (7) Hypertension: Plan: Stable today at 160/70. - Continue chlorthalidone, metoprolol (8) Dyslipidemia: Plan: - Continue statin Given medical stability, Hospital Medicine team will sign off. Please re-consult with any questions or concerns. Thank you for letting us assist in the care of this patient! Admission and Anticipated Discharge Date Admission Date: July 18, 2022 Subjective Doing better when seen around 12:30pm. He has pain under control. Still not had a bowel movement. Physical Exam Constitutional: WD/WN, vitals as above Eyes: EOM intact bilaterally; no conjunctival abnormality ENMT: external ear and nose normal, oropharynx normal Neck: trachea midline, no thyromegaly normal visual inspection Respiratory: normal respiratory effort, lungs clear to auscultation no respiratory distress Cardiovascular: RRR, no murmur, no edema Gastrointestinal (Abdomen): Inspection/Auscultation: abdomen normal to inspection; abdomen not distended Skin: no rashes, warm and dry Neurologic: moves all extremities and awake Psychiatric: Orientation: alert, oriented to person and cooperative Results & Data Results & Data ([facility]) Vital Signs (Past 12 Hours) Vital Signs Temp Pulse Resp BP Pulse Ox O2 Del Method 07/22/22 07:32 36.8 C 72 16 159/81 H 95 Room Air PG Care Time/CCT Total # of Minutes Spent Total Time Spent with Patient: Total time spent is greater than 50% in coordination of care (as documented) at patient's floor/unit and/or counseling patient: Coding Level of Care Code 09873 Subseq Hosp Care Lvl 2 Diagnoses Delayed surgical wound healing T81.89XA Diabetes mellitus type 1 E10.9 CKD (chronic kidney disease) stage 2, GFR 60-89 ml/min N18.2 CAD (coronary artery disease) I25.10 Coronary Disease-Associated Artery/Lesion type: [place] artery [place] vs. transplanted heart: [place] heart Associated angina: without angina PAD (peripheral artery disease) I73.9 Hypothyroidism E03.9 Hypothyroidism type: unspecified Hypertension I10 Hypertension type: unspecified Dyslipidemia E78.5 (1) CAD (coronary artery disease) Coronary Disease-Associated Artery/Lesion type: [place] artery [place] vs. transplanted heart: [place] heart Associated angina: without angina Qualified Code(s): I25.10 - Atherosclerotic heart disease of [place] coronary artery without angina pectoris (2) Hypothyroidism Hypothyroidism type: unspecified Qualified Code(s): E03.9 - Hypothyroidism, unspecified (3) Hypertension Hypertension type: unspecified Qualified Code(s): I10 - Essential (primary) hypertension
[2022-07-22] MEDS: POLYETHYLENE (MIRALAX) 17 GM PACK PO SCH (15:03)
--- NOTE | 2022-07-22 15:50 | Discharge Summary ---
Date of Service July 22, 2022 Admission HPI Per Admitting Provider Patient is a pleasant 67-year-old male who was seen and evaluated in our office today. He is status post a left leg below-knee amputation with Dr. Soto on June 30, 2022. He presents today with his [id number]. He is doing fine with no significant complaints of pain. [facility] has [facility] and is discharged from there today. He has been up ambulating with his prosthesis on the right leg and use of a walker. He has been nonweightbearing on the left leg. His splint was removed last week and he was switched to a stump cleaning custodian dressing. Last week it was noticed to be some delay in wound healing with some necrosis around the skin edges and some serous fluid type drainage. There is no fluctuance. He did complete his antibiotic course. He has had no fevers or chills. He presents today for another wound check and shows to continue to have delayed wound healing with necrosis. Due to these findings, surgical intervention was recommended. He is scheduled for an irrigation and debridement and revision below-knee amputation possible above-knee amputation of his left leg with Dr. Soto scheduled for tomorrow July 19, 2022. Discharge Data Consultations 07/18/22 20:34 Consult Hospitalist Routine Procedures Performed Operation Date: 07/19/22 10:10 Actual Procedures p Left Leg Irrigation and Debridement and Left Above Knee Amputation(Left) - Xander Soto MD Hospital Course (1) Acute blood loss anemia: He did develop postoperative acute blood loss anemia. On postoperative day 1 he was anemic and was given 1 unit of packed red blood cells. He remained asymptomatic throughout the rest of his hospital stay. He did not require any further transfusions. He did not develop any transfusion reactions. (2) Delayed surgical wound healing: Patient was admitted to [facility] on July 18, 2022 from the office. He was seen for a postoperative wound check as he had a below-knee amputation on June 30, 2022. He developed postoperative delayed wound healing and drainage. He also had some necrosis around the skin edges. It was advised for admission to [facility] for an irrigation, debridement, revision of his below-knee amputation versus above-knee amputation. His surgery was scheduled for July 19, 2022. He was made n.p.o. after midnight. He was given a regular diabetic diet afterwards. On July 19, 2022 he underwent a left lower extremity above-knee amputation with Dr. Soto. His surgery was performed with general anesthesia. He tolerated the procedure well without any intraoperative complications. Postoperatively he was allowed out of bed, nonweightbearing left lower extremity. He was allowed to weight- bear as tolerated on the right leg with his prosthetic. His diet was resumed post operatively. Glycemic consult was placed. His home medications were continued And his Plavix was resumed for DVT prophylaxis.. He was seen and evaluated by physical therapy and Occupational Therapy during his inpatient stay. Postoperative day 2 his dressings on his left leg were changed. The incision was clean, dry and intact. The skin was healthy and capillary fill is brisk. His pain was controlled with IV Dilaudid, Tylenol, Toradol, oxycodone.On postoperative day 3 he did develop a lot of increased discomfort and pain in the left thigh. He did well out of bed with physical therapy and Occupational Therapy. Hospitalist consult was placed for postoperative medical management. His vital signs remained stable. Due to his increased pain on postoperative day 3 he wished to stay overnight for better pain control. We did modify his pain medication and gave him scheduled Tylenol. Later in the afternoon his pain was much better controlled but he still wished to stay overnight for pain control. Case management involved for Home health. [facility] Home health was not available to see him next week. He decided that he would be able to go home on Monday with his family. He then did not have a ride on Monday so he stayed until Monday. Monday his family wished to have him set up for home health and they could no do that until Monday. Monday he was seen by Case management, [facility] home health was consulted again and they had an available appointment to see him on Monday07/26/22. Patient and family agreed with the plan. He will follow-up as scheduled with Dr. Soto. Discharge instructions were reviewed. Medications were sent to his pharmacy.
[2022-07-22] MEDS: ATORVASTATIN 40 MG TAB PO SCH (20:20)
[2022-07-23] MEDS: CEFEPIME 2,000 MG in SYRINGE 0 ML IV SCH ×3 (01:30→17:58)
[2022-07-23] MEDS: oxyCODONE HCL IR 5 MG TAB (IMMEDIATE RELEASE) PO SCH ×5 (03:50→20:00)
[2022-07-23] MEDS: LEVOTHYROXINE SODIUM 175 MCG TABLET PO SCH (05:33)
[2022-07-23] MEDS: ACETAMINOPHEN 325 MG TAB PO SCH ×3 (05:33→17:20)
[2022-07-23] MEDS ORDERED: VANCOMYCIN LEVEL ONE (07:30)
[2022-07-23 07:55] LABS: Est GFR (African American) 117.6 ml/min; Est GFR (Non-African American) 101.5 ml/min
[2022-07-23] MEDS: VANCOMYCIN HCL 1,250 MG in SODIUM CHLORIDE 0.9% 250 ML IV SCH (08:18)
[2022-07-23] MEDS: FERROUS SULFATE 325 MG TAB PO SCH ×2 (09:19→20:27)
[2022-07-23] MEDS: DOCUSATE SODIUM 100 MG CAP PO SCH ×2 (09:19→20:27)
[2022-07-23] MEDS: CALCITRIOL 0.25 MCG CAPSULE PO SCH (09:19)
[2022-07-23] MEDS: MULTIVITAMIN TAB PO SCH (09:20)
[2022-07-23] MEDS: METOPROLOL TARTRATE 25 MG TAB PO SCH ×2 (09:20→20:26)
[2022-07-23] MEDS: MAGNESIUM OXIDE 400 MG TAB PO SCH (09:20)
[2022-07-23] MEDS: ADVANCED PROBIOTIC 1250 MG CAPSULE PO SCH (09:21)
[2022-07-23] MEDS: ASPIRIN 81 MG ECTAB PO SCH (09:21)
[2022-07-23] MEDS: CHLORTHALIDONE 25 MG TAB PO SCH (09:21)
[2022-07-23] MEDS: POTASSIUM CHLORIDE CRTAB 20 MEQ TABCR PO SCH ×2 (09:22→20:26)
[2022-07-23] MEDS: CLOPIDOGREL BISULFATE 75 MG TAB PO SCH (09:22)
[2022-07-23] MEDS: POLYETHYLENE (MIRALAX) 17 GM PACK PO SCH (09:22)
[2022-07-23] MEDS: NYSTATIN POWDER 15GM BTL EXT SCH ×2 (09:22→20:28)
[2022-07-23] MEDS: FOLIC ACID 1 MG TAB PO SCH (09:23)
[2022-07-23] MEDS: HYDROmorphone INJ 1 MG/ML SYRINGE IV PRN (09:34)
[2022-07-23] MEDS: INSULIN, Rapid-Acting PUMP SCH ×4 (10:11→20:35)
--- NOTE | 2022-07-23 13:54 | Pharmacy Report ---
Pharmacy Vanc AUC Short Note - Date of Service July 23, 2022 - Assessment & Plan Assessment 67 year old M receiving CEFEPIME/VANCOMYCIN for treatment of impaired wound healing of BKA. Pertinent microbiologic data includes: MSSA + morganella from leg culture. Anticipate discharge today- consider de-escalation of vancomycin as it is not preferred for MSSA (covered by cefepime). Plan Vancomycin * AUC/SÁNCHEZ is the preferred PK/PD target for vancomycin * AUC guided dosing is effective and associated with decreased risk of nephrotoxicity compared to traditional trough targets * Trough level of 14.2 mcg/mL is predicted to achieve target AUC/SÁNCHEZ of 400-600 mg/L.hr * Continue dose of 1250 mg IV every 12 hours Pharmacy will continue to follow and will adjust dose/frequency as necessary. Thank you.
[2022-07-23] MEDS: ATORVASTATIN 40 MG TAB PO SCH (20:26)
[2022-07-24] MEDS: ACETAMINOPHEN 325 MG TAB PO SCH ×5 (00:13→23:09)
[2022-07-24] MEDS: oxyCODONE HCL IR 5 MG TAB (IMMEDIATE RELEASE) PO SCH ×6 (00:18→20:51)
[2022-07-24] MEDS: CEFEPIME 2,000 MG in SYRINGE 0 ML IV SCH (02:45)
[2022-07-24] MEDS: LEVOTHYROXINE SODIUM 175 MCG TABLET PO SCH (06:11)
--- NOTE | 2022-07-24 08:20 | Orthopedic Progress Note ---
Date of Service July 24, 2022 Assessment & Plan (1) S/P above knee amputation: Plan: Postop day 5-status post above-knee amputation with Dr. Soto on July 19. Nonweightbearing left lower extremity. May be out of bed, weight-bear as tolerated on right lower extremity with the assistance of a walker and his prosthesis. Physical therapy and Occupational Therapy Continue Plavix and aspirin for DVT prophylaxis. Post-op prophylactic antibiotics discontinued. Ice and elevation as needed for pain or swelling. Pain medication as prescribed - scheduled tylenol 625mg every 6 hours and oxycodone 5mg every 4 hours as needed. Try to minimize narcotics due to co nstipation. Case management for disposition needs - patient would like to go home with [facility] Patient is stable for discharge home this morning, even if home health cannot see today. Has follow-up scheduled as an outpatient in our clinic tomorrow. (2) Acute blood loss anemia: (3) Diabetic peripheral neuropathy associated with type 1 diabetes mellitus: (4) Peripheral arterial disease: Admission and Anticipated Discharge Date Admission Date: July 18, 2022 Subjective Patient's vancomycin d/c'd yesterday and given a dose of cefepime due to culture from his BKA stump. There is no concern, however, that his new AKA wound is infected, and Dr. Soto only wanted him on IV antibiotics for a couple days after surgery for prophylaxis, so I discontinued his cefepime this morning. Patient reports no fevers, chills, cp or sob. He has not had a bowel movement yet. Taking oxycodone about 3 times per day. Has been receiving miralax. no abdominal pain. Physical Exam Physical Exam: Gen: comfortable in bed, conversant, A & O x3 LLE: Dressing c/d/i over his AKA stump. No drainage through dressing. Results & Data ([facility]) Vital Signs (Past 12 Hours) Vital Signs Temp Pulse Resp BP Pulse Ox O2 Del Method 07/24/22 08:17 36.5 C 65 16 136/66 92 Room Air 07/23/22 20:20 36.7 C 66 20 130/77 96 Room Air
[2022-07-24] MEDS: MAGNESIUM OXIDE 400 MG TAB PO SCH (08:33)
[2022-07-24] MEDS: ADVANCED PROBIOTIC 1250 MG CAPSULE PO SCH (08:33)
[2022-07-24] MEDS: CALCITRIOL 0.25 MCG CAPSULE PO SCH (08:33)
[2022-07-24] MEDS: FERROUS SULFATE 325 MG TAB PO SCH ×2 (08:34→20:57)
[2022-07-24] MEDS: CHLORTHALIDONE 25 MG TAB PO SCH (08:34)
[2022-07-24] MEDS: ASPIRIN 81 MG ECTAB PO SCH (08:34)
[2022-07-24] MEDS: MULTIVITAMIN TAB PO SCH (08:34)
[2022-07-24] MEDS: CLOPIDOGREL BISULFATE 75 MG TAB PO SCH (08:34)
[2022-07-24] MEDS: DOCUSATE SODIUM 100 MG CAP PO SCH ×2 (08:34→20:59)
[2022-07-24] MEDS: FOLIC ACID 1 MG TAB PO SCH (08:35)
[2022-07-24] MEDS: NYSTATIN POWDER 15GM BTL EXT SCH ×2 (08:36→20:58)
[2022-07-24] MEDS: POLYETHYLENE (MIRALAX) 17 GM PACK PO SCH (08:36)
[2022-07-24] MEDS: POTASSIUM CHLORIDE CRTAB 20 MEQ TABCR PO SCH ×2 (08:36→20:58)
[2022-07-24] MEDS: INSULIN, Rapid-Acting PUMP SCH ×4 (09:29→20:52)
[2022-07-24] MEDS: METOPROLOL TARTRATE 25 MG TAB PO SCH ×2 (09:32→20:59)
[2022-07-24] MEDS: ATORVASTATIN 40 MG TAB PO SCH (20:57)
[2022-07-25] MEDS: oxyCODONE HCL IR 5 MG TAB (IMMEDIATE RELEASE) PO SCH ×4 (00:12→12:16)
[2022-07-25] MEDS: ACETAMINOPHEN 325 MG TAB PO SCH ×2 (05:20→12:16)
[2022-07-25] MEDS: LEVOTHYROXINE SODIUM 175 MCG TABLET PO SCH (05:21)
[2022-07-25] MEDS: INSULIN, Rapid-Acting PUMP SCH ×2 (09:13→12:50)
[2022-07-25] MEDS: METOPROLOL TARTRATE 25 MG TAB PO SCH (09:24)
[2022-07-25] MEDS: DOCUSATE SODIUM 100 MG CAP PO SCH (09:25)
[2022-07-25] MEDS: FOLIC ACID 1 MG TAB PO SCH (09:25)
[2022-07-25] MEDS: ADVANCED PROBIOTIC 1250 MG CAPSULE PO SCH (09:26)
[2022-07-25] MEDS: POTASSIUM CHLORIDE CRTAB 20 MEQ TABCR PO SCH (09:26)
[2022-07-25] MEDS: CALCITRIOL 0.25 MCG CAPSULE PO SCH (09:27)
[2022-07-25] MEDS: CHLORTHALIDONE 25 MG TAB PO SCH (09:27)
[2022-07-25] MEDS: FERROUS SULFATE 325 MG TAB PO SCH (09:27)
[2022-07-25] MEDS: MAGNESIUM OXIDE 400 MG TAB PO SCH (09:28)
[2022-07-25] MEDS: CLOPIDOGREL BISULFATE 75 MG TAB PO SCH (09:28)
[2022-07-25] MEDS: MULTIVITAMIN TAB PO SCH (09:28)
[2022-07-25] MEDS: ASPIRIN 81 MG ECTAB PO SCH (09:28)
[2022-07-25] MEDS: NYSTATIN POWDER 15GM BTL EXT SCH (09:30)
[2022-07-25] MEDS: POLYETHYLENE (MIRALAX) 17 GM PACK PO SCH (09:30)
--- NOTE | 2022-07-25 12:07 | Orthopedic Progress Note ---
Date of Service July 25, 2022 Assessment & Plan (1) S/P above knee amputation: Plan: Postop day 6-status post above-knee amputation with Dr. Soto on July 19. Nonweightbearing left lower extremity. May be out of bed, weight-bear as tolerated on right lower extremity with the assistance of a walker and his prosthesis. Physical therapy and Occupational Therapy Continue Plavix and aspirin for DVT prophylaxis. Post-op prophylactic antibiotics discontinued. Ice and elevation as needed for pain or swelling. Pain medication as prescribed - scheduled tylenol 625mg every 6 hours and oxycodone 5mg every 4 hours as needed. Try to minimize narcotics due to co nstipation. Case management for disposition needs - patient would like to go home with [facility] Patient is stable for discharge home this morning, even if home health cannot see today. Has follow-up scheduled as an outpatient in our [facility]. Admission and Anticipated Discharge Date Admission Date: July 18, 2022 Subjective Pt seen and examined bedside. He is doing well. Pain 2/10. He is ready for discharge today. Physical Exam Physical Exam: General: Pt laying in hospital bed AA&O, in NAD, calm and cooperative during exam Lower Extremity: Patient s/p AKA. Dressing in tact and not saturated. Thigh is compressible and soft. He has sensation in tact to upper thigh. Dressing taken down to reveal well approximated incision. Some dried blood noted. No purulent drainage, erythema or wound dehiscence. Redressed with xeroform, 4x4s, ABD, kerlix and ramsey wrap and secured with tap. Pt reported comfort. Results & Data ([facility]) Vital Signs (Past 12 Hours) Vital Signs Temp Pulse Resp BP Pulse Ox O2 Del Method 07/25/22 08:26 36.6 C 64 15 128/74 97 Room Air
--- NOTE | 2022-08-08 08:42 | Coding Query ---
PATHOLOGY To promote full compliance with coding requirements relating to patient care, physician participation is requested in all cases of wardrobe manager uncertainty. 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
== END 2022-07-25 15:56 | disposition home health service (06) | DRG 475 ==
LOC: ED 15:41 → 3W 19:37

== ENCOUNTER 2022-08-23 15:09 | Inpatient (IN) ==
[2022-08-23 16:05] LABS: Basophils # (auto) 0.08 K/uL (0-0.2); Basophils % (auto) 0.8 %; Eosinophils # (auto) 0.33 K/uL (0-0.50); Eosinophils % (auto) 3.1 %; Hematocrit (blood only) 36.5 % (40.1-51.0); Hemoglobin 11.9 g/dl (14.0-18.0); Immature Granulocytes # (auto) 0.01 K/uL (0.00-0.02); Immature Granulocytes % (auto) 0.1 %; Lymphocytes # (auto) 1.96 K/uL (1.2-3.4); Lymphocytes % (auto) 18.4 %; Mean Corpuscular Hemoglobin 27.8 pg (25.0-34.0); Mean Corpuscular Hgb Conc 32.6 g/dL (32.0-36.0); Mean Corpuscular Volume 85.3 fL (80.0-100.0); Mean Platelet Volume 10.3 fL (9.4-12.4); Monocytes # (auto) 0.76 K/uL (0.24-0.82); Monocytes % (auto) 7.1 %; Neutrophils # (auto) 7.49 K/uL (1.4-6.5); Neutrophils % (auto) 70.5 %; Platelet Count 301 K/uL (130-400); RDW Standard Deviation 43.3 fL (36.4-46.3); Red Blood Count 4.28 M/uL (4.63-6.08); White Blood Count 10.63 K/ul (4.8-10.8)
[2022-08-23 16:27] LABS: Alanine Aminotransferase 28 U/L (7-52); Albumin Globulin Ratio 0.9 (0.9-2); Albumin Level 3.6 gm/dl (3.4-5.0); Alkaline Phosphatase 132 U/L (34-104); Anion Gap 9 (3-11); Aspartate Aminotransferase 21 U/L (13-39); BUN Creatinine Ratio 34.6 (10-20); Bilirubin,Total 0.7 mg/dl (0.2-1.0); Blood Urea Nitrogen 27 mg/dl (6-23); Calcium 9.1 mg/dl (8.5-10.1); Carbon Dioxide 28 mmol/L (21-32); Chloride 99 mmol/L (98-107); Est GFR (African American) 109.8 ml/min; Est GFR (Non-African American) 94.7 ml/min; Globulin 3.9 gm/dl (2.5-4.0); Glucose 286 mg/dl (70-99(Fasting)); Potassium 3.6 mmol/L (3.5-5.1); Sodium 136 mmol/L (136-145); Total Protein 7.5 gm/dl (6.0-8.3)
[2022-08-23] MEDS ORDERED: PIPERACILLIN/TAZOBACTAM 3.375 GM in DEXTROSE 5% 100 ML/100 ML BAG IV STA (18:14)
--- NOTE | 2022-08-23 18:17 | Emergency Department Note ---
History of Present Illness General Chief complaint: Referred by Doctor Stated complaint: AMPUTATION NOT HEALING, WOUND CLIINIC REF Time Seen by Provider: 08/23/22 17:47 History of Present Illness Maximum Pain Intensity: 3 67-year-old male presents to the ED with a chief complaint of being sent to the emergency department from the wound care clinic. The patient states that he saw Dr. Calderon yesterday. Dr. Tomas turner debrided the wound some and the patient followed up with wound care clinic today. She was concerned about the way it looked and sent him here. He states that she told him that he needed to be admitted for IV antibiotics. A wound culture was done at the wound care clinic. He has not had any fevers, nausea or vomiting. He does have some increased sensitivity to the area. He is currently not on antibiotics. No other complaints at this time Home Medications Medication Instructions Recorded Confirmed Type aspirin 81 mg tablet,delayed 81 mg PO QAM 05/04/21 08/23/22 History release (Mohit Low Dose Aspirin) ferrous sulfate 325 mg (65 mg 325 mg PO BID #60 tabs 08/03/21 08/23/22 Rx iron) tablet,delayed release lactobacillus combination no.9 4 4,000 mmu cells PO QAM 08/04/21 08/23/22 History billion cell capsule (Adult 50 Plus Probiotic) atorvastatin 80 mg tablet (Lipitor) 80 mg PO HS #90 tabs 11/15/21 08/23/22 Rx docusate sodium 100 mg capsule 100 mg PO DIRECTED PRN 01/04/22 08/23/22 History (Colace) Constipation insulin aspart U-100 100 unit/mL 0 unit continuous subcutaneous 05/09/22 08/23/22 History subcutaneous solution (Novolog infusion DAILY U-100 Insulin aspart) chlorthalidone 25 mg tablet 25 mg PO QAM #90 tabs 05/20/22 08/23/22 Rx pantoprazole 40 mg tablet,delayed 40 mg PO UD PRN Acid Reflux 06/08/22 08/23/22 History release (Protonix) folic acid 1 mg tablet 1 mg PO QAM #30 tabs 06/23/22 08/23/22 Rx levothyroxine 175 mcg tablet 175 mcg PO QAM #90 tabs 07/01/22 08/23/22 Rx (Synthroid) magnesium oxide 400 mg (241.3 mg 400 mg PO QAM #30 tabs 07/07/22 08/23/22 Rx magnesium) tablet acetaminophen 500 mg tablet 1,000 mg PO Q8 PRN Pain 07/18/22 08/23/22 History (Tylenol Extra Strength) nystatin 100,000 unit/gram topical 1 applic topical BID PRN Skin 07/18/22 08/23/22 History powder Irritation oxycodone 5 mg tablet 5 - 10 mg PO Q4 PRN pain #30 tabs 07/22/22 08/23/22 Rx tramadol 50 mg tablet 50 - 100 mg PO Q6H PRN pain #20 07/22/22 08/23/22 Rx tabs metoprolol tartrate 25 mg tablet 12.5 mg PO BID #90 tabs 08/08/22 08/23/22 Rx potassium chloride 20 mEq 20 meq PO BID #60 tabs 08/08/22 08/23/22 Rx tablet,extended release calcitriol 0.25 mcg capsule 0.25 mcg PO QAM #30 caps 08/19/22 08/23/22 Rx (Rocaltrol) clopidogrel 75 mg tablet (Plavix) 75 mg PO QAM #30 tabs 08/19/22 08/23/22 Rx polyethylene glycol 3350 17 17 g PO DAILY 08/23/22 08/23/22 History gram/dose oral powder (Miralax) Allergies Allergy/AdvReac Type Severity Reaction Status Date / Time No Known Allergies Allergy Unknown Verified 07/18/22 17:07 Past Med/Surg History Medical History Aortic stenosis s/p porcine valve replacement (2015) + CABG x1 Follows with [facility] cardio CAD (coronary artery disease) s/p CABG x 1 (2015) CKD (chronic kidney disease), stage III Constipation Diabetes mellitus type 1 + Insulin pump Diabetic nephropathy associated with type 1 diabetes mellitus Diabetic ulcer of left foot Follows with [facility] wound clinic. Last visit 06/07/22- left diabetic foot ulcer "Wounds are stable deteriorated. No debridement performed." PT REPORTS LAST VISIT A FEW WEEKS AGO...NEED FOR SX Dyslipidemia GERD (gastroesophageal reflux disease) History of Clostridium difficile infection s/p treatment (2020) History of colon polyps ALL NEGATIVE PER PT 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) History of osteomyelitis left foot Hx MRSA infection 01/2022 (left heel) Hx of renal calculi Hypertension Hypothyroidism Infection LLE - REASON FOR UPCOMING SX/CURRENT ABX TX FOR Insulin pump in place Osteoarthritis Osteoporosis Proliferative diabetic retinopathy associated with type 1 diabetes mellitus PVD (peripheral vascular disease) s/p B/L iliac artery stents (2014), R common/external iliac (2017), R common femoral endarterectomy (11/2018) with bovine patch. Left femoral to PT composite bypass graft (06/2020) Surgical History Below-knee amputation of right lower extremity H/O cataract extraction R/L H/O endarterectomy R common femoral (11/2018) H/O vascular surgery Right Femoral to Posterior tibial Prosthetic Bypass Graft(Right) History of ankle surgery LEFT ANKLE +HARDWARE REMOVED History of aortic valve replacement 2016 ([facility]) History of arterial bypass of lower extremity Left femoral to PT composite bypass graft (06/2020) History of cardiac cath x2, most recent 2016 > no stents (subsequent CABG with AVR in 2015); [facility] History of carpal tunnel release R/L History of colonoscopy History of coronary artery bypass graft CABG x1 + AVR (2015) History of esophagogastroduodenoscopy (EGD) History of myringotomy w/tubes bilat. History of open reduction and internal fixation (ORIF) procedure LLE () History of skin graft Split Thickness Skin Graft of Left Lateral Ankle (11/18/20): LMA#5, atraumatic x1 at [facility] History of tonsillectomy History of tooth extraction History of umbilical hernia repair Hx of cystoscopy w/stent placement; stent then removed Hx of surgical procedure Left Leg Wound Debridement and Irrigation S/P femoropopliteal bypass surgery Right fem-pop bypass graft (01/19/21): Grade 2 view, MAC 3.0, ETT 8.0 at [facility] S/P insertion of iliac artery stent B/L iliac stent placement (2014) 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 Left transmetatarsal amputation (11/23/21): LMA# 5.0 at [facility]. No issues noted per post-op anesthesia progress note. HX 1 SX TO REMOVE ALL TOES LEFT FOOT NOVEMBER 2021 Family History Brother Family history of diabetes mellitus Sister Family history of diabetes mellitus Mother Family history of diabetes mellitus Grandmother (Maternal) Family history of diabetes mellitus Uncle Family hx of colon cancer Colorectal cancer Father Family history of esophageal cancer Sister Family history of diabetes mellitus Other No family history of adverse response to anesthesia Denies family history of Ovarian cancer Prostate cancer Myocardial infarction Breast cancer Social History Smoking Status: Former smoker Tobacco Type: Cigarettes and Smokeless Tobacco (Dip or Chew) Second Hand Exposure: Yes (as a child); Hx Alcohol Use: No Hx Substance Use: No Preferred Language: Icelandic Communication Ability: Effective Visual Impairment: Limited Hearing Ability: Hard of Hearing Internet Marketing Manager Required: No Beliefs That Will Affect Care: None marital status: Current Living Situation: Other Current Living Situation Comment: roommate current occupational status: disabled How many Children do You have: 2 How many Children do You have Comment: family assists with care, also is part of the waiver program so the pt's roommate is able to assist with care through this program Feels Safe at Home: Yes Childhood Exposure to Second-Hand Smoke: Yes Diet Comment: Carb Counts. (1888-0216, roughly), protein drinks caffeine: Yes (coffee, rarely ) during the past year weight has: remained stable Dental Care, Regularly: No Seatbelt Use: always Sunscreen Use: No Gender Identity: Male Assistive Devices: Cane, Prosthesis, Walker and Wheelchair Review of Systems A total of 10 systems reviewed and were otherwise negative Physical Exam Vital Signs Vital Signs - 24 hr 08/23/22 15:11 08/23/22 18:05 Temperature 36.4 C L Temperature Source Temporal Artery Scan Pulse Rate 77 Respiratory Rate 20 19 Respiratory Effort / Characteristics Non-Labored Non-Labored Spontaneous Respiratory Depth Normal Normal Respiratory Pattern Regular Blood Pressure 125/64 Blood Pressure [Right Arm] 119/58 L Blood Pressure Mean 84 Blood Pressure Mean [Right Arm] 78 Blood Pressure Position Sitting Blood Pressure Position [Right Arm] Lying Pulse Oximetry 100 99 Oxygen Delivery Method Room Air Room Air Sepsis Recent Fever Within 48 Hours No Sepsis New/Unexplained Change in Mental Status No Sepsis Action Taken by Nursing No Action Required CONSTITUTIONAL/VITAL SIGNS: Reviewed / noted above. GENERAL: Non-toxic in appearance. INTEGUMENTARY: Warm, dry, and [place]. HEAD: Normocephalic. EYES: without scleral icterus or trauma. ENT/OROPHARYNX: clear and moist. LYMPHADENOPATHY/NECK: Is supple without lymphadenopathy or meningismus. RESPIRATORY: No increased work of breathing. CARDIOVASCULAR: Regular rate and rhythm. EXTREMITIES: Warm and well perfused. The patient has a dehiscence of his stump wound with some mild surrounding erythema. There is a small amount of nonpurulent appearing discharge. No significant tenderness. NEUROLOGICAL: Intact without focal deficits. PSYCHIATRIC: normal affect. MUSCULOSKELETAL: Normally developed with good muscle tone. TRIAGE NURSING DOCUMENTATION REVIEWED. Medical Decision Making Differential Diagnosis Cellulitis, abscess, MRSA infection, DVT, necrotizing fasciitis, dermatitis, drug eruption, allergic reaction, as well as other pathologies. Medical Records Attestation: I reviewed the patient's medical records. Home Medications Current Medication List: was personally reviewed by me Laboratory Data Attestation: I reviewed the patient's lab results. Result diagrams: 08/23/22 15:48 08/23/22 15:48 Lab Results 08/23/22 08/23/22 08/23/22 Range/Units 15:48 15:48 18:27 WBC 10.63 (4.8-10.8) K/ul RBC 4.28 L (4.63-6.08) M/uL Hgb 11.9 L (14.0-18.0) g/dl Hct 36.5 L (40.1-51.0) % MCV 85.3 (80.0-100.0) fL MCH 27.8 (25.0-34.0) pg MCHC 32.6 (32.0-36.0) g/dL RDW Std Deviation 43.3 (36.4-46.3) fL RDW Coeff of Chan 14.0 (11.5-14.5) % Plt Count 301 (130-400) K/uL MPV 10.3 (9.4-12.4) fL Immature Gran % (Auto) 0.1 % Neut % (Auto) 70.5 % Lymph % (Auto) 18.4 % [place] % (Auto) 7.1 % Eos % (Auto) 3.1 % Baso % (Auto) 0.8 % Neut # (Auto) 7.49 H (1.4-6.5) K/uL Lymph # (Auto) 1.96 (1.2-3.4) K/uL [place] # (Auto) 0.76 (0.24-0.82) K/uL Eos # (Auto) 0.33 (0-0.50) K/uL Baso # (Auto) 0.08 (0-0.2) K/uL Immature Gran # (Auto) 0.01 (0.00-0.02) K/uL Sodium 136 (136-145) mmol/L Potassium 3.6 (3.5-5.1) mmol/L Chloride 99 (98-107) mmol/L Carbon Dioxide 28 (21-32) mmol/L Anion Gap 9 (3-11) BUN 27 H (6-23) mg/dl Creatinine 0.78 (0.6-1.4) mg/dl Est Cr Clr Drug Dosing Not Reportable Est GFR ( Amer) 109.8 ml/min Est GFR (Non-Af Amer) 94.7 ml/min BUN/Creatinine Ratio 34.6 H (10-20) Glucose 286 H (70-99(Fasting)) mg/dl POC Glucose 319 H* (70-99) mg/dl Calcium 9.1 (8.5-10.1) mg/dl Total Bilirubin 0.7 (0.2-1.0) mg/dl AST 21 (13-39) U/L ALT 28 (7-52) U/L Alkaline Phosphatase 132 H (34-104) U/L Total Protein 7.5 (6.0-8.3) gm/dl Albumin 3.6 (3.4-5.0) gm/dl Globulin 3.9 (2.5-4.0) gm/dl Albumin/Globulin Ratio 0.9 (0.9-2) SARS-CoV-2, RNA, NAAT (NEGATIVE) 08/23/22 Range/Units 18:30 WBC (4.8-10.8) K/ul RBC (4.63-6.08) M/uL Hgb (14.0-18.0) g/dl Hct (40.1-51.0) % MCV (80.0-100.0) fL MCH (25.0-34.0) pg MCHC (32.0-36.0) g/dL RDW Std Deviation (36.4-46.3) fL RDW Coeff of Chan (11.5-14.5) % Plt Count (130-400) K/uL MPV (9.4-12.4) fL Immature Gran % (Auto) % Neut % (Auto) % Lymph % (Auto) % [place] % (Auto) % Eos % (Auto) % Baso % (Auto) % Neut # (Auto) (1.4-6.5) K/uL Lymph # (Auto) (1.2-3.4) K/uL [place] # (Auto) (0.24-0.82) K/uL Eos # (Auto) (0-0.50) K/uL Baso # (Auto) (0-0.2) K/uL Immature Gran # (Auto) (0.00-0.02) K/uL Sodium (136-145) mmol/L Potassium (3.5-5.1) mmol/L Chloride (98-107) mmol/L Carbon Dioxide (21-32) mmol/L Anion Gap (3-11) BUN (6-23) mg/dl Creatinine (0.6-1.4) mg/dl Est Cr Clr Drug Dosing Est GFR ( Amer) ml/min Est GFR (Non-Af Amer) ml/min BUN/Creatinine Ratio (10-20) Glucose (70-99(Fasting)) mg/dl POC Glucose (70-99) mg/dl Calcium (8.5-10.1) mg/dl Total Bilirubin (0.2-1.0) mg/dl AST (13-39) U/L ALT (7-52) U/L Alkaline Phosphatase (34-104) U/L Total Protein (6.0-8.3) gm/dl Albumin (3.4-5.0) gm/dl Globulin (2.5-4.0) gm/dl Albumin/Globulin Ratio (0.9-2) SARS-CoV-2, RNA, NAAT NEGATIVE (NEGATIVE) Imaging Data My Impression: X-ray of the left femur: Per my interpretation shows no evidence of osteomyelitis. No air in the tissues. MDM Narrative 67-year-old male presents with concerns about a stump infection. The patient had an AKA on July [address] Tomas Mathews. Saw Dr. Shabbondy yesterday and had some wound debridement. Saw wound care center today and was referred here because they felt the patient needed admitted for IV antibiotics. There is some dehiscence of the wound as well as some mild erythema. No other significant abnormalities noted on my exam. CBC and chemistry panel was unremarkable. Glucose is 286. The patient was ordered IV Zosyn. The patient will be seen by the hospitalist for further evaluation and care. Impression & Plan Cellulitis Discharge Plan Visit Data Chief Complaint: Referred by Doctor Stated Complaint: AMPUTATION NOT HEALING, WOUND CLIINIC REF ED Provider: Jose Daniel Swartz Discharge Problem: Cellulitis Patient Disposition: Being Evaluated by Hospitalist Forms Stand Alone Forms: My [facility] Prescriptions Prescriptions: No Action polyethylene glycol 3350 [Miralax] 17 gram/dose powder 17 g PO DAILY ferrous sulfate 325 mg (65 mg iron) tablet,delayed release (DR/EC) 325 mg PO BID Qty: 60 5RF atorvastatin [Lipitor] 80 mg tablet 80 mg PO HS Qty: 90 3RF chlorthalidone 25 mg tablet 25 mg PO QAM Qty: 90 3RF folic acid 1 mg tablet 1 mg PO QAM Qty: 30 5RF Label Comments: PT CURRENLTY NOT TAKING/WAITING FOR PHARMACY levothyroxine [Synthroid] 175 mcg tablet 175 mcg PO QAM Qty: 90 2RF potassium chloride 20 mEq tablet extended release 20 meq PO BID Qty: 60 3RF Rx Instructions: take 1 tablet by mouth twice a day metoprolol tartrate 25 mg tablet 12.5 mg PO BID Qty: 90 3RF calcitriol [Rocaltrol] 0.25 mcg capsule 0.25 mcg PO QAM Qty: 30 5RF clopidogrel [Plavix] 75 mg tablet 75 mg PO QAM Qty: 30 5RF Label Comments: LAST DOSE YESTERDAY , TOLD TO STOP UNTIL AFTER SURGERY Adult 50 Plus Probiotic 4 billion cell capsule 4,000 mmu cells PO QAM Rx Instructions: administer with a meal pantoprazole [Protonix] 40 mg tablet,delayed release (DR/EC) 40 mg PO UD PRN (Reason: Acid Reflux) acetaminophen [Tylenol Extra Strength] 500 mg tablet 1,000 mg PO Q8 PRN (Reason: Pain) nystatin 100,000 unit/gram powder 1 applic topical BID PRN (Reason: Skin Irritation) Label Comments: ABOUT OUT OF , NEED TO SEE IF I CAN GET A REFILL Rx Instructions: apply to groin oxycodone 5 mg Tablet 5 - 10 mg PO Q4 PRN (Reason: pain) Qty: 30 0RF tramadol 50 mg tablet 50 - 100 mg PO Q6H PRN (Reason: pain) Qty: 20 0RF Rx Instructions: initial therapy for breakthrough pain aspirin [Mohit Low Dose Aspirin] 81 mg tablet,delayed release (DR/EC) 81 mg PO QAM docusate sodium [Colace] 100 mg Capsule 100 mg PO DIRECTED PRN (Reason: Constipation) insulin aspart U-100 [Novolog U-100 Insulin aspart] 100 unit/mL solution 0 unit continuous subcutaneous infusion DAILY MDD 75 UNITS/DAILY Rx Instructions: Via insulin pump; TDD 75 units magnesium oxide 400 mg (241.3 mg magnesium) Tablet 400 mg PO QAM Qty: 30 0RF Referrals Referrals: Jeremias Morton, [Primary Care Provider] -
--- NOTE | 2022-08-23 18:30 | History & Physical Report ---
Date of Service August 23, 2022 Assessment & Plan (1) Cellulitis: Plan: Right BKA with suspected cellulitis No leukocytosis, hemoglobin 11.9 S/p right AKA 07/19/[address] Talavera for delayed surgical wound healing or bleeding from left BKA Patient seen by wound care date of admission, was noted to have nonhealing surgical wound with suspected developing surrounding cellulitis Wound was debrided at wound care, was recommended for IV antibiotics and r eevaluation for surgical debridement versus wound VAC by wound care, presented to ER for subsequent treatment Patient with history of MRSA infection of the right heel 01/2022, Pseudomonas infection 05/02,VRE infection. Will cover with daptomycin/Zosyn pending cultures Wound culture pending Type 1 diabetes mellitus Last A1c 7.4% 05/2022 A1c repeat pending Patient blood sugars in the 300s, patient and note that his device measurements have not been consistent with provider measurements or how with the patient is feeling. Suspect it may be malfunctioning, we will not use patient's device at this time and switch to glucose checks with basal bolus insulin while inpatient. Patient should have device verified before discharge, and if any are accurate may need replacement Patient CGM reviewed. He is on a rate of 1.5 basal per hour, correction 1-30, carb ratio 1:8. -Total daily basal 36 units, adjusted to 10 units twice daily/dose reduced while n.p.o./clears. Basal bolus ordered. glucose 286, 5 units IV insulin given x1, glargine/SSI ordered weight-based. Goal BSG 279414, glucose checks AC/at bedtime or every 4 hours. Dose reduce glargine by 30% while n.p.o./clear. Do not hold glargine completely for n.p.o. pharmacy consulted for assistance with management given variable control, infection, and device malfunction CKD Baseline GFR 6089 Creatinine baseline less than 1 On chlorthalidone WEL[employer] MECH[employer]IC, held Admitting creatinine 0.78, estimated GFR 94 CAD S/p bypass 2015, history of aortic stenosis s/p porcine aortic valve replacement. No history of stents Continue aspirin/Plavix. If surgical re-intervention may hold Plavix, continue aspirin. Echo 11/2020 with EF 55 to 60% No recent symptoms of angina Continue metoprolol Continue statin No chest pain/chest pressure Peripheral artery disease With history of iliac stent 2015 bilateral, right common/external iliac 2017, right common femoral endarterectomy 11/2018 with patch, left femoral to PT composite graft 06/30, left anterior tibial bypass 11/19/2021, left AKA as noted above Continue antiplatelets as above Hypothyroidism TSH pending Continue Synthroid Hypertension Continue metoprolol Held chlorthalidone for relative hypotension Dyslipidemia Hold atorvastatin while on Dapto DVT prophylaxis: Heparin 2/2 CKD Disposition: Medical/surgical Diet: Type I DM, heart healthy CODE STATUS: Full code (2) Stage III pressure ulcer: (3) Surgical wound, non healing: (4) S/P above knee amputation: (5) Anemia: (6) Diabetes type 1, controlled: (7) COPD (chronic obstructive pulmonary disease): (8) VRE infection (vancomycin resistant enterococcus), with multi-drug resistance: (9) CKD (chronic kidney disease) stage 2, GFR 60-89 ml/min: (10) PAD (peripheral artery disease): (11) CAD (coronary artery disease): (12) History of aortic valve replacement: (13) PVD (peripheral vascular disease): History of Present Illness Primary Care Provider: Jeremias Morton DO Ron mclain is a 67yo M past medical history of type 1 diabetes mellitus, pressure ulcers, left AKA with poor wound healing and suspected dehiscence and superimposed cellulitis, anemia, CKD, past MRSA/VRE infection, peripheral artery disease, hypothyroidism, hypertension, dyslipidemia who presents on recommendation from wound clinic after debridement yesterday of his AKA site for continued progressive erythema and poor healing with suspected superimposed cellulitis. Patient is seen at bedside, sister present. She notes that his glucose monitor does not seem to be accurate as differed from physician monitors and thinks this may be malfunctioning. Patient reports that he has not any fever, chills, sweats, shortness of breath, difficulty breathing, chest pain. Does have a right BKA which is doing well, with a small pressure ulcer at his prosthesis site. He notes his left AKA amputation has been doing poorly, is tender along the surgical site, with bleeding and discharge. Surrounding erythema is present. He reports he has been seen in wound care and had a debridement yesterday, and on follow-up today there is concern for spreading erythema. He notes his blood sugars have also been elevated in the 300s, and that his CGM has been inconsistent with measurements taken at bedside. He is on a 1.5 basal rate, correction factor of 1-30, and ratio of 1:8. Referred from wound care for concern of wound infection of AKA Jul 19. Suspect wound dehiscence, was seen by Dr. Soto yesterday for debridement. Hx VRE. Medical History: Reviewed Medications: Reviewed Surgical History: Reviewed Allergies: Reviewed Social History: Reviewed Code Status: Full code Allergies Allergy/AdvReac Type Severity Reaction Status Date / Time No Known Allergies Allergy Unknown Verified 08/23/22 20:14 Home Medications Medication Instructions Recorded Confirmed Type aspirin 81 mg tablet,delayed 81 mg PO QAM 05/04/21 08/23/22 History release (Mohit Low Dose Aspirin) ferrous sulfate 325 mg (65 mg 325 mg PO BID #60 tabs 08/03/21 08/23/22 Rx iron) tablet,delayed release lactobacillus combination no.9 4 4,000 mmu cells PO QAM 08/04/21 08/23/22 Hi story billion cell capsule (Adult 50 Plus Probiotic) atorvastatin 80 mg tablet (Lipitor) 80 mg PO HS #90 tabs 11/15/21 08/23/22 Rx docusate sodium 100 mg capsule 100 mg PO DIRECTED PRN 01/04/22 08/23/22 History (Colace) Constipation insulin aspart U-100 100 unit/mL 0 unit continuous subcutaneous 05/09/22 08/23/22 History subcutaneous solution (Novolog infusion DAILY U-100 Insulin aspart) chlorthalidone 25 mg tablet 25 mg PO QAM #90 tabs 05/20/22 08/23/22 Rx pantoprazole 40 mg tablet,delayed 40 mg PO UD PRN Acid Reflux 06/08/22 08/23/22 History release (Protonix) folic acid 1 mg tablet 1 mg PO QAM #30 tabs 06/23/22 08/23/22 Rx levothyroxine 175 mcg tablet 175 mcg PO QAM #90 tabs 07/01/22 08/23/22 Rx (Synthroid) magnesium oxide 400 mg (241.3 mg 400 mg PO QAM #30 tabs 07/07/22 08/23/22 Rx magnesium) tablet acetaminophen 500 mg tablet 1,000 mg PO Q8 PRN Pain 07/18/22 08/23/22 History (Tylenol Extra Strength) nystatin 100,000 unit/gram topical 1 applic topical BID PRN Skin 07/18/22 08/23/22 History powder Irritation oxycodone 5 mg tablet 5 - 10 mg PO Q4 PRN pain #30 tabs 07/22/22 08/23/22 Rx tramadol 50 mg tablet 50 - 100 mg PO Q6H PRN pain #20 07/22/22 08/23/22 Rx tabs metoprolol tartrate 25 mg tablet 12.5 mg PO BID #90 tabs 08/08/22 08/23/22 Rx potassium chloride 20 mEq 20 meq PO BID #60 tabs 08/08/22 08/23/22 Rx tablet,extended release calcitriol 0.25 mcg capsule 0.25 mcg PO QAM #30 caps 08/19/22 08/23/22 Rx (Rocaltrol) clopidogrel 75 mg tablet (Plavix) 75 mg PO QAM #30 tabs 08/19/22 08/23/22 Rx polyethylene glycol 3350 17 17 g PO DAILY 08/23/22 08/23/22 History gram/dose oral powder (Miralax) Past Med/Surg History Medical History Aortic stenosis s/p porcine valve replacement (2015) + CABG x1 Follows with [facility] [place] cardio CAD (coronary artery disease) s/p CABG x 1 (2015) CKD (chronic kidney disease), stage III Constipation Diabetes mellitus type 1 + Insulin pump Diabetic nephropathy associated with type 1 diabetes mellitus Diabetic ulcer of left foot Follows with [facility] [place] wound clinic. Last visit 06/07/22- left diabetic foot ulcer "Wounds are stable deteriorated. No debridement performed." PT REPORTS LAST VISIT A FEW WEEKS AGO...NEED FOR SX Dyslipidemia GERD (gastroesophageal reflux disease) History of Clostridium difficile infection s/p treatment (2020) History of colon polyps ALL NEGATIVE PER PT 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) History of osteomyelitis left foot Hx MRSA infection 01/2022 (left heel) Hx of renal calculi Hypertension Hypothyroidism Infection LLE - REASON FOR UPCOMING SX/CURRENT ABX TX FOR Insulin pump in place Osteoarthritis Osteoporosis Proliferative diabetic retinopathy associated with type 1 diabetes mellitus PVD (peripheral vascular disease) s/p B/L iliac artery stents (2014), R common/external iliac (2018), R common femoral endarterectomy (11/2018) with bovine patch. Left femoral to PT composite bypass graft (06/2020) Surgical History Below-knee amputation of right lower extremity H/O cataract extraction R/L H/O endarterectomy R common femoral (11/2018) H/O vascular surgery Right Femoral to Posterior tibial Prosthetic Bypass Graft(Right) History of ankle surgery LEFT ANKLE +HARDWARE REMOVED History of aortic valve replacement 2016 ([facility]) History of arterial bypass of lower extremity Left femoral to PT composite bypass graft (06/2020) History of cardiac cath x2, most recent 2016 > no stents (subsequent CABG with AVR in 2015); [facility] History of carpal tunnel release R/L History of colonoscopy History of coronary artery bypass graft CABG x1 + AVR (2015) History of esophagogastroduodenoscopy (EGD) History of myringotomy w/tubes bilat. History of open reduction and internal fixation (ORIF) procedure LLE () History of skin graft Split Thickness Skin Graft of Left Lateral Ankle (11/18/20): LMA#5, atraumatic x1 at [facility] History of tonsillectomy History of tooth extraction History of umbilical hernia repair Hx of cystoscopy w/stent placement; stent then removed Hx of surgical procedure Left Leg Wound Debridement and Irrigation S/P femoropopliteal bypass surgery Right fem-pop bypass graft (01/19/21): Grade 2 view, MAC 3.0, ETT 8.0 at [facility] S/P insertion of iliac artery stent B/L iliac stent placement (2014) 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 Left transmetatarsal amputation (11/23/21): LMA# 5.0 at [facility]. No issues noted per post-op anesthesia progress note. HX 1 SX TO REMOVE ALL TOES LEFT FOOT NOVEMBER 2021 Family History Brother Family history of diabetes mellitus Sister Family history of diabetes mellitus Mother Family history of diabetes mellitus Grandmother (Maternal) Family history of diabetes mellitus Uncle Family hx of colon cancer Colorectal cancer Father Family history of esophageal cancer Sister Family history of diabetes mellitus Other No family history of adverse response to anesthesia Denies family history of Ovarian cancer Prostate cancer Myocardial infarction Breast cancer Social History Smoking Status: Former smoker Tobacco Type: Cigarettes and Smokeless Tobacco (Dip or Chew) Second Hand Exposure: Yes (as a child); Hx Alcohol Use: No Hx Substance Use: No Preferred Language: Kazakh Communication Ability: Effective Visual Impairment: Limited Hearing Ability: Hard of Hearing [employer] Deployment Consultant Required: No Beliefs That Will Affect Care: None marital status: Current Living Situation: Other Current Living Situation Comment: roommate current occupational status: disabled How many Children do You have: 2 How many Children do You have Comment: family assists with care, also is part of the waiver program so the pt's roommate is able to assist with care through this program Other Information That Helps Us Care for You: No Feels Safe at Home: Yes Safety Concerns: Feels Safe At This Time Childhood Exposure to Second-Hand Smoke: Yes Diet Comment: Carb Counts. ([id number], roughly), protein drinks caffeine: Yes (coffee, rarely ) during the past year weight has: remained stable Dental Care, Regularly: No Seatbelt Use: always Sunscreen Use: No Gender Identity: Male Assistive Devices: Prosthesis, Slide Board, Walker and Wheelchair Review of Systems Review of Systems: All systems reviewed & are unremarkable except as noted in HPI & below Physical Exam Physical Exam: General: A&Ox3. NAD. Cooperative. HEENT: Atraumatic, normocephalic. Pulm: CTAB A&P. -wheezes, -rales, -rhonchi. Symmetrical chest rise. No increase in work of breathing. No respiratory distress. Cardiac: RRR, -mrg. Radial pulses intact and symmetrical. Abdominal: Nontender, nondistended, soft. BS present. Extremities: Right BKA with stage III pressure ulcer prosthetic site anteriorly, no signs of infection including warmth/erythema/tenderness left AKA with central dehiscence, mild surrounding erythema, clear/yellowish discharge without purulence. Nontender. Cap refill is intact. Results & Data Results & Data ([facility]) Vital Signs (Past 12 Hours) Vital Signs Temp Pulse Resp BP BP Pulse Ox O2 Del Method 08/23/22 18:05 19 119/58 L 99 Room Air 08/23/22 15:11 36.4 C L 77 20 125/64 100 Room Air PG Care Time/CCT Total # of Minutes Spent Total Time Spent with Patient: Total time spent is greater than 50% in coordination of care (as documented) at patient's floor/unit and/or counseling patient: Coding Level of Care Code INT OBSERVATION CARE 50M LVL 2 Diagnoses Cellulitis L03.90 Stage III pressure ulcer L89.93 Surgical wound, non healing T81.89XA S/P above knee amputation Z89.619 Anemia D64.9 Diabetes type 1, controlled E10.9 COPD (chronic obstructive pulmonary disease) J44.9 VRE infection (vancomycin resistant enterococcus), with multi-drug resistance A49.1; Z16.24 CKD (chronic kidney disease) stage 2, GFR 60-89 ml/min N18.2 PAD (peripheral artery disease) I73.9 CAD (coronary artery disease) I25.10 Associated angina: without angina Coronary Disease-Associated Artery/Lesion type: [place] artery [place] vs. transplanted heart: [place] heart History of aortic valve replacement Z95.2 PVD (peripheral vascular disease) I73.9 (1) CAD (coronary artery disease) Associated angina: without angina Coronary Disease-Associated Artery/Lesion type: [place] artery [place] vs. transplanted heart: [place] heart Qualified Code(s): I25.10 - Atherosclerotic heart disease of [place] coronary artery without angina pectoris
--- NOTE | 2022-08-23 19:09 | XRay Report ---
XR femur LT 2V routine HISTORY: 67 years-old Male stump infection reported soft tissue infection of the left lower extremit y with prior rlibl-yey-ukgi amputation COMPARISON: Fluoroscopic images of the left knee 07/19/2022 TECHNIQUE: 2 views of the left femur FINDINGS: Arterial stent grafts in the left thigh redemonstrated along with arterial calcifications. Moderate l eft hip osteoarthritis. Postoperative changes from above the left knee amputation. Soft tissue swelli ng of the amputation stump. There is mild cortical irregularity of the distal femoral diaphysis at th e amputation site. IMPRESSION: Prior beshc-bzo-yyoa amputation of the distal femur. There is subtle cortical irregularit y of the distal femur at the amputation site which may be postoperative or represent developing osteo myelitis. ACT 112: Negative or not required by law. The above report was generated using voice recognition software. It may contain grammatical, syntax o r spelling errors. Electronically signed by: Alberto Armstrong M.D. 08/23/2022 7:07 PM
[2022-08-23] MEDS ORDERED: NovoLIN-R INSULIN PER UNIT CHARGE IV STA (20:23)
[2022-08-23] MEDS ORDERED: LANTUS PER UNIT CHARGE SQ SCH (20:35)
[2022-08-23] MEDS ORDERED: DEXTROSE 50% 50 ML SYRINGE IV ONE ×2 (21:55→21:57)
[2022-08-23] MEDS ORDERED: GLUCOSE 10 TAB/TUBE PO PRN (23:57)
[2022-08-23] MEDS ORDERED: GLUCOSE 40% GEL 15 GM TUBE PO PRN (23:57)
[2022-08-23] MEDS ORDERED: CARBOHYDRATES FOR HYPOGLYCEMIA PO PRN (23:57)
[2022-08-23] MEDS ORDERED: ACETAMINOPHEN 325 MG TAB PO PRN (23:57)
[2022-08-23] MEDS ORDERED: GLUCAGON FOR INJ 1 MG VIAL SQ PRN (23:57)
[2022-08-23] MEDS ORDERED: PHARMACY GLYCEMIC MGMT CONSULT PRN (23:57)
[2022-08-23] MEDS ORDERED: DOCUSATE SODIUM 100 MG CAP PO PRN (23:57)
[2022-08-23] MEDS ORDERED: DEXTROSE 50% 50 ML SYRINGE IV PRN (23:57)
[2022-08-23] MEDS ORDERED: ONDANSETRON INJ 2 MG/ML 2 ML VIAL IV PRN (23:57)
[2022-08-24] MEDS: FERROUS SULFATE 325 MG TAB PO SCH ×3 (00:38→21:33)
[2022-08-24] MEDS: METOPROLOL TARTRATE 25 MG TAB PO SCH ×3 (00:40→21:33)
[2022-08-24] MEDS: DAPTOmycin 275 MG in SYRINGE 0 ML IV SCH (00:43)
[2022-08-24] MEDS: PIPERACILLIN/TAZOBACTAM 3.375 GM in DEXTROSE 5% 100 ML IV SCH ×3 (00:46→15:54)
[2022-08-24] MEDS: INSULIN ASPART PER UNIT SC SCH ×6 (00:53→21:43)
[2022-08-24 06:31] LABS: Basophils # (auto) 0.07 K/uL (0-0.2); Basophils % (auto) 0.7 %; Eosinophils # (auto) 0.36 K/uL (0-0.50); Eosinophils % (auto) 3.7 %; Hematocrit (blood only) 33.9 % (40.1-51.0); Hemoglobin 10.9 g/dl (14.0-18.0); Immature Granulocytes # (auto) 0.02 K/uL (0.00-0.02); Immature Granulocytes % (auto) 0.2 %; Lymphocytes # (auto) 1.72 K/uL (1.2-3.4); Lymphocytes % (auto) 17.8 %; Mean Corpuscular Hemoglobin 27.2 pg (25.0-34.0); Mean Corpuscular Hgb Conc 32.2 g/dL (32.0-36.0); Mean Corpuscular Volume 84.5 fL (80.0-100.0); Mean Platelet Volume 10.3 fL (9.4-12.4); Monocytes # (auto) 1.02 K/uL (0.24-0.82); Monocytes % (auto) 10.6 %; Neutrophils # (auto) 6.47 K/uL (1.4-6.5); Platelet Count 261 K/uL (130-400); RDW Coefficient of Variation 13.7 % (11.5-14.5); RDW Standard Deviation 42.6 fL (36.4-46.3); Red Blood Count 4.01 M/uL (4.63-6.08); White Blood Count 9.66 K/ul (4.8-10.8)
[2022-08-24 06:39] LABS: Estimated Average Glucose 148 mg/dl; Hemoglobin A1C 6.8 % (4.5-5.6)
[2022-08-24 06:58] LABS: BUN Creatinine Ratio 26.8 (10-20); C Reactive Protein 1.31 mg/dl (0-0.5); Calcium 8.3 mg/dl (8.5-10.1); Creatinine Clr Calc Pharmacy 76.1 ml/min; Est GFR (African American) 107.6 ml/min; Est GFR (Non-African American) 92.8 ml/min; Potassium 3.2 mmol/L (3.5-5.1)
--- NOTE | 2022-08-24 07:13 | Hospitalist Progress Note ---
Date of Service August 24, 2022 Assessment & Plan (1) Cellulitis: (2) Surgical wound, non healing: (3) S/P above knee amputation: (4) Diabetes type 1, controlled: Plan Ron is a 67 y/o male who presented to the ER yesterday at recommendation from wound care clinic. His PMH includes 1 diabetes mellitus, pressure ulcers, left AKA with poor wound healing and suspected dehiscence and superimposed cellulitis, anemia, CKD, past MRSA/VRE infection, peripheral artery disease, hyp othyroidism, hypertension, dyslipidemia. Right BKA with suspected cellulitis S/p right AKA 07/19/[address] Talavera for delayed surgical wound healing or bleeding from left BKA Patient seen by wound care date of admission, was noted to have nonhealing surgical wound with suspected developing surrounding cellulitis Wound was debrided at wound care, was recommended for IV antibiotics and reevaluation for surgical debridement versus wound VAC by wound care, presented to ER for subsequent treatment No leukocytosis, hemoglobin 11.9 - Seen by Dr. Soto, per his note- plan to proceed with wound vac over further surgical procedure. See orthopedics note for further detail. Patient with history of MRSA infection of the right heel 01/2022, Pseudomonas infection 05/02,VRE infection. Receiving daptomycin/Zosyn pending cultures Type 1 diabetes mellitus Last A1c 7.4% 05/2022, 6.8% today Patient blood sugars in the 300s, patient and note that his device measurements have not been consistent with provider measurements or how with the patient is feeling. Suspect it may be malfunctioning, we will not use patient's device at this time and switch to glucose checks with basal bolus insulin while inpatient. Patient should have device verified before discharge, and if any are accurate may need replacement Patient CGM reviewed. He is on a rate of 1.5 basal per hour, correction 1-30, carb ratio 1:8. -Total daily basal 36 units, adjusted to 10 units twice daily/dose reduced while n.p.o./clears. Basal bolus ordered. glucose 286, 5 units IV insulin given x1, glargine/SSI ordered weight-based. Goal BSG 511012, glucose checks AC/at bedtime or every 4 hours. Dose reduce glargine by 30% while n.p.o./clear. Do not hold glargine completely for n.p.o. 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 No history of stents Continue aspirin/Plavix. If surgical re-intervention may hold Plavix, continue aspirin. Echo 11/2020 with EF 55 to 60% No recent symptoms of angina Continue metoprolol Continue statin No chest pain/chest pressure Peripheral artery disease With history of iliac stent 2014 bilateral, right common/external iliac 2017, right common femoral endarterectomy 11/2018 with patch, left femoral to PT composite graft 06/30, left anterior tibial bypass 11/19/2021, left AKA as noted above Continue antiplatelets as above Hypothyroidism TSH pending Continue Synthroid Hypertension Continue metoprolol Held chlorthalidone for relative hypotension Dyslipidemia Hold atorvastatin while on Dapto DVT prophylaxis: Heparin 2/2 CKD Disposition: Medical/surgical Diet: Type I DM, heart healthy CODE STATUS: Full code Admission and Anticipated Discharge Date Admission Date: August 23, 2022 Supervising Physician Co-Signing Physician Notes Resident Physician Supervision Note: I independently interviewed and examined the patient and verified the perez history and physical, reviewed labs and image studies and agree with resident findings and care plan. Subjective Patient was seen and examined at bedside. No acute concerns, patient states Dr. Soto already saw him this morning and he is comfortable with the plan. Denies chest pain, SOB, fever, chills, body aches. Review of Systems Review of Systems: As per HPI Physical Exam Constitutional: WD/WN, vitals as above Neck: trachea midline, no thyromegaly Respiratory: normal respiratory effort, lungs clear to auscultation Cardiovascular: RRR, no murmur, no edema Gastrointestinal (Abdomen): normal bowel sounds, soft, nontender, no hepatosplenomegaly Musculoskeletal: LE bandaged. Results & Data Results & Data ([facility]) Vital Signs (Past 12 Hours) Vital Signs Temp Pulse Resp BP BP Pulse Ox O2 Del Method 08/23/22 23:45 37.1 C 73 20 131/75 99 Room Air 08/23/22 22:37 67 18 135/60 98 Room Air 08/23/22 22:00 70 19 163/60 H 96 Resident Activity Tracking Resident Involvement: Resident Care Provided Care Provided: Adult Hospital Medicine
[2022-08-24] MEDS ORDERED: POTASSIUM CHLORIDE CRTAB 20 MEQ TABCR PO STA (08:15)
[2022-08-24] MEDS: ASPIRIN 81 MG ECTAB PO SCH (08:23)
[2022-08-24] MEDS: PANTOprazole 40 MG TAB PO SCH (08:23)
[2022-08-24] MEDS: CLOPIDOGREL BISULFATE 75 MG TAB PO SCH (08:23)
[2022-08-24] MEDS: HEPARIN SOD 5,000 UNIT/0.5 ML VIAL SQ SCH ×2 (08:24→21:33)
[2022-08-24] MEDS ORDERED: LANTUS PER UNIT CHARGE SQ SCH (09:00)
--- NOTE | 2022-08-24 10:01 | Progress Notes ---
DATE OF SERVICE: 08/24/2022. The patient is well known to me from previous surgery and outpatient treatment of his left above-knee amputation. He had a BKA, which required revision to an AKA several weeks ago. He has experienced delayed wound healing and dehiscence with likely superficial colonization. This past Monday, we anesthetized him in the office and debrided the wound back to healthy tissue and did a wet-to-dry dressing change. He was sent to the wound care clinic for consideration of a wound VAC. He was then admitted to the hospital. Mr. Chowdhury notes that the leg is feeling somewhat better. Less tender than it had been. He is afebrile. His vital signs are stable. His white blood cell count is normal. He does not have a left shift. CRP is 1.31. COVID negative. Other labs noted. Albumin is 3.6. It is noted that he has experienced breakdown of his right BKA area as well, age indeterminate. There was some dried skin, which was removed revealing the underlying wound. This is superficial. Into the dermis. It is about a centimeter long, irregular and about 0.5 cm wide right over the crest of the tibia. Benign in appearance without any exposed bone or tendon. There is no erythema or drainage. Covered with Aquacel Ag and Optifoam dressing. The left AKA is explored. There is some purulence on the dressing. The anteromedial two wounds look well. They have some granulating margins. They are confined to the subcutaneous tissues and do not probe deeply. There is no exposed bone. Likewise, with the posterior wound, it is several centimeters wide and perhaps 5 cm long. About 2 cm deep. No exposed bone. There is some fibrinous exudate and some marginal and healthy appearing tissue present. In general, looks better than it did last week. There is no significant erythema or fluid accumulation. Tenderness is less. The leg is not swollen. Wet-to-dry dressing is applied. IMPRESSION: 1. Wound breakdown, right BKA. 2. Delayed wound healing, left above-knee amputation. PLAN: Findings are discussed. I would continue offloading the right leg. Do not use the prosthesis. I think the Aquacel Ag and Optifoam would be appropriate. In regards to the left leg wound, we talked about the options. I think there is a superficial colonization, but he does not have any systemic signs of sepsis or infection. He has been placed on IV antibiotics by medicine. I think that is reasonable given the findings. One option is to reoperate, shorten the femur, remove more of his graft, which may require the presence of Dr. Eason. Revise the wound. Option 2, which is what we prefer to do is to try to address this with wound care. I think there is a reasonable chance that we can get this to heal. Things look better than they did a week ago. I think irrigating wound VAC would be a possibility and will speak to the wound care nurse about doing that. We will continue to monitor and follow. We will allow him to have something to eat. An x-ray was obtained, which shows his vascular graft. Additionally, the amputation is noted above the knee. The radiologist comments about the possibility of osteomyelitis. I think that these findings are likely due to the amputation and use of file and rongeur to smooth the ends of the amputation. I think it is not possible to determine that this definitively is osteomyelitis based upon the radiographic appearance. Job ID: [id number] [facility]
[2022-08-24] MEDS ORDERED: LANTUS PER UNIT CHARGE SQ ONE (12:37)
--- NOTE | 2022-08-24 13:47 | Pharmacy Report ---
Pharmacy Glycemic Short Note 2 - Date of Service August 24, 2022 - Glycemic Short BSG Results (Last 24 hours): 08/23/22 08/23/22 08/23/22 15:48 18:27 21:22 Glucose 286 H POC Glucose 319 H* 91 08/23/22 08/23/22 08/23/22 21:53 22:17 23:52 Glucose POC Glucose 71 183 H 241 H 08/24/22 08/24/22 08/24/22 03:54 03:56 05:44 Glucose 250 H POC Glucose 305 H* 295 H 08/24/22 08/24/22 08/24/22 08:04 12:19 12:21 Glucose POC Glucose 195 H 314 H* 275 H OUTPATIENT ANTIDIABETIC REGIMEN: * Novolog pump - 1.5 units/hr CF 30 CR 8 / per provider notes ASSESSMENT: * 67 year old admitted with potential infection, started on antibiotics. Concern for malfunctioning of insulin pump therefore now utilizing SQ insulin for now * Patient's home basal per pump ~36 units/day - BSGs elevated on admission likely related to infection. * Patient had been NPO this morning d/t possible surgical intervention, however no plans for procedure and provider to monitor on antibiotics for now. Patient changed to diet this AM. Per nurse, patient ordered meal late this AM - she was unaware and so no coverage was given for novolog * Lunch BSG trending up - will plan to continue novolog per home settings of pump. Added an additional 5 units of basal since now patient eating so that basal insulin for today will reflect what he receives with pump. Will transition to once daily basal in AM * DM educator in to see patient and to evaluate insulin pump. Patient to bring in supplies for pump - will consider starting insulin pump inpatient to determine if working correctly PLAN FOR INPATIENT GLYCEMIC CONTROL: * Hold outpatient oral diabetes medications * Basal insulin * Lantus 35 units daily * Bolus insulin * NovoLog per scale ACHS or Q6hrs while NPO * Goal Range: Low 110 mg/dL - High 140 mg/dL * Correction Factor: 30 mg/dL/unit * Nutritional / Prandial insulin per carb ratio of 1 unit per 8 grams CHO consumed
[2022-08-25] MEDS: INSULIN ASPART PER UNIT SC SCH ×6 (00:03→21:16)
[2022-08-25] MEDS: DAPTOmycin 275 MG in SYRINGE 0 ML IV SCH (00:08)
[2022-08-25] MEDS: PIPERACILLIN/TAZOBACTAM 3.375 GM in DEXTROSE 5% 100 ML IV SCH ×4 (00:08→23:36)
[2022-08-25 06:31] LABS: Basophils # (auto) 0.08 K/uL (0-0.2); Basophils % (auto) 0.8 %; Eosinophils # (auto) 0.58 K/uL (0-0.50); Eosinophils % (auto) 5.7 %; Hematocrit (blood only) 35.3 % (40.1-51.0); Hemoglobin 11.5 g/dl (14.0-18.0); Immature Granulocytes # (auto) 0.05 K/uL (0.00-0.02); Immature Granulocytes % (auto) 0.5 %; Lymphocytes # (auto) 2.21 K/uL (1.2-3.4); Lymphocytes % (auto) 21.6 %; Mean Corpuscular Hgb Conc 32.6 g/dL (32.0-36.0); Mean Corpuscular Volume 82.9 fL (80.0-100.0); Mean Platelet Volume 10.3 fL (9.4-12.4); Monocytes # (auto) 1.12 K/uL (0.24-0.82); Monocytes % (auto) 10.9 %; Neutrophils # (auto) 6.21 K/uL (1.4-6.5); Neutrophils % (auto) 60.5 %; Platelet Count 300 K/uL (130-400); RDW Coefficient of Variation 13.8 % (11.5-14.5); RDW Standard Deviation 41.3 fL (36.4-46.3); Red Blood Count 4.26 M/uL (4.63-6.08); White Blood Count 10.25 K/ul (4.8-10.8)
--- NOTE | 2022-08-25 08:15 | Hospitalist Progress Note ---
Date of Service August 25, 2022 Assessment & Plan (1) Cellulitis: (2) Surgical wound, non healing: (3) S/P above knee amputation: (4) Diabetes type 1, controlled: Plan Ron is a 67 y/o male who presented to the ER yesterday at recommendation from wound care clinic. His PMH includes 1 diabetes mellitus, pressure ulcers, left AKA with poor wound healing and suspected dehiscence and superimposed cellulitis, anemia, CKD, past MRSA/VRE infection, peripheral artery disease, hyp othyroidism, hypertension, dyslipidemia. Left AKA wound dehiscence with suspected cellulitis S/p left AKA 07/19/[address] Talavera for delayed surgical wound healing or bleeding from left BKA Patient seen by wound care date of admission, was noted to have nonhealing surgical wound with suspected developing surrounding cellulitis Wound was debrided at wound care, was recommended for IV antibiotics and reevaluation for surgical debridement versus wound VAC by wound care, presented to ER for subsequent treatment No leukocytosis, hemoglobin 11.9 - Seen by Dr. Soto, per his note- plan to proceed with wound vac over further surgical procedure. See orthopedics note for further detail. Patient with history of MRSA infection of the right heel 01/2022, Pseudomonas infection 05/02,VRE infection. - Wound cultures positive for pseudomonas, staph aureus. D/C dapto, will continue zosyn Pressure Ulcer of right BKA, Stage 3 - Per wound care Loose stools +Several episodes of loose stool per nursing, sent stool sample which was positive for c.diff gene PCR but negative for c.diff toxin- likely a carrier. +Will monitor, if episodes of loose stool continue/worsen will treat for c.diff Type 1 diabetes mellitus Last A1c 7.4% 05/2022, 6.8% today Patient blood sugars in the 300s. concern of device malfunctioning. will not use patient's device at this time and switch to glucose checks with basal bolus insulin while inpatient. Patient should have device verified before discharge, and if any are accurate may need replacement Patient CGM reviewed. He is on a rate of 1.5 basal per hour, correction 1-30, carb ratio 1:8. 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 No history of stents Continue aspirin/Plavix. If surgical re-intervention may hold Plavix, continue aspirin. Echo 11/2020 with EF 55 to 60% No recent symptoms of angina Continue metoprolol Continue statin No chest pain/chest pressure Peripheral artery disease With history of iliac stent 2014 bilateral, right common/external iliac 2017, right common femoral endarterectomy 11/2018 with patch, left femoral to PT composite graft 06/30, left anterior tibial bypass 11/19/2021, left AKA as noted above Continue antiplatelets as above Hypothyroidism TSH pending Continue Synthroid Hypertension Continue metoprolol Held chlorthalidone for relative hypotension Dyslipidemia Hold atorvastatin while on Dapto DVT prophylaxis: Heparin 2/2 CKD Disposition: Medical/surgical Diet: Type I DM, heart healthy CODE STATUS: Full code Admission and Anticipated Discharge Date Admission Date: August 24, 2022 Supervising Physician Co-Signing Physician Notes Resident Physician Supervision Note: I independently interviewed and examined the patient and verified the perez history and physical, reviewed labs and image studies and agree with resident findings and care plan. Subjective Patient was seen and examined at bedside. No events overnight. Has wound vac in place. Notes an episode of loose stool this morning. Denies shortness of breath, fever, chills, chest pain. Review of Systems Review of Systems: As per HPI Physical Exam Constitutional: WD/WN, vitals as above Neck: trachea midline, no thyromegaly Respiratory: normal respiratory effort, lungs clear to auscultation Cardiovascular: RRR, no murmur, no edema Gastrointestinal (Abdomen): normal bowel sounds, soft, nontender, no hepatosplenomegaly Psychiatric: A+Ox3, euthymic affect Results & Data Results & Data ([facility]) Vital Signs (Past 12 Hours) Vital Signs Temp Pulse Pulse Resp BP BP Pulse Ox 08/25/22 07:25 37.1 C 70 16 111/69 96 08/24/22 21:31 37.2 C 73 16 146/84 H 98 O2 Del Method 08/25/22 07:25 Room Air 08/24/22 21:31 Room Air Resident Activity Tracking Resident Involvement: Resident Care Provided Care Provided: Adult Hospital Medicine
[2022-08-25 08:22] LABS: BUN Creatinine Ratio 20.5 (10-20); Calcium 8.7 mg/dl (8.5-10.1); Creatinine Clr Calc Pharmacy 75.2 ml/min; Est GFR (Non-African American) 92.3 ml/min; Magnesium 1.8 mg/dl (1.7-2.4); Potassium 4.1 mmol/L (3.5-5.1)
[2022-08-25] MEDS: HEPARIN SOD 5,000 UNIT/0.5 ML VIAL SQ SCH ×2 (09:00→21:21)
[2022-08-25] MEDS: ASPIRIN 81 MG ECTAB PO SCH (09:00)
[2022-08-25] MEDS: METOPROLOL TARTRATE 25 MG TAB PO SCH ×2 (09:00→21:22)
[2022-08-25] MEDS: CLOPIDOGREL BISULFATE 75 MG TAB PO SCH (09:00)
[2022-08-25] MEDS: FERROUS SULFATE 325 MG TAB PO SCH ×2 (09:00→21:22)
[2022-08-25] MEDS ORDERED: LANTUS PER UNIT CHARGE SQ SCH (09:00)
[2022-08-25] MEDS: PANTOprazole 40 MG TAB PO SCH (09:00)
--- NOTE | 2022-08-25 09:34 | Progress Notes ---
DATE OF NOTE: 08/25/2022 The patient is resting comfortably in bed. The irrigating wound VAC is in place. The plan is to ree valuate this tomorrow and change the wound VAC with She Schmid the wound care nurse. Subsequent to saúl t, we will know more about treatment plan. Until then, continue same. Job ID: [id number]
--- NOTE | 2022-08-25 10:03 | Pharmacy Report ---
Pharmacy Glycemic Short Note 2 - Date of Service August 25, 2022 - Glycemic Short BSG Results (Last 24 hours): 08/24/22 08/24/22 08/24/22 12:19 12:21 17:04 Glucose POC Glucose 314 H* 275 H 272 H 08/24/22 08/25/22 08/25/22 21:10 00:02 04:00 Glucose POC Glucose 242 H 137 H 123 H 08/25/22 08/25/22 05:59 08:06 Glucose 151 H POC Glucose 221 H OUTPATIENT ANTIDIABETIC REGIMEN: * Novolog pump - 1.5 units/hr CF 30 CR 8 / per provider notes ASSESSMENT: 08/25: * BSGs erratic the last 24h, [phone]/dL. Fasting BSG elevated this AM. Received 35 units of basal and 40 units of bolus insulin yesterday. * Tolerating diet and continues on antibiotics. * No insulin pump supplies this AM so plan to continue SQ for today. Possible plan for transition to pump tomorrow. Lantus titrated slightly to 37 units and Novolog parameters tightened. 08/24: * 67 year old admitted with potential infection, started on antibiotics. Concern for malfunctioning of insulin pump therefore now utilizing SQ insulin for now * Patient's home basal per pump ~36 units/day - BSGs elevated on admission likely related to infection. * Patient had been NPO this morning d/t possible surgical intervention, however no plans for procedure and provider to monitor on antibiotics for now. Patient changed to diet this AM. Per nurse, patient ordered meal late this AM - she was unaware and so no coverage was given for novolog * Lunch BSG trending up - will plan to continue novolog per home settings of pump. Added an additional 5 units of basal since now patient eating so that basal insulin for today will reflect what he receives with pump. Will transition to once daily basal in AM * DM educator in to see patient and to evaluate insulin pump. Patient to bring in supplies for pump - will consider starting insulin pump inpatient to determine if working correctly PLAN FOR INPATIENT GLYCEMIC CONTROL: * Hold outpatient oral diabetes medications * Basal insulin * Lantus 37 units SQ X 1 * Bolus insulin * NovoLog per scale ACHS or Q6hrs while NPO * Goal Range: Low 110 mg/dL - High 140 mg/dL * Correction Factor: 25 mg/dL/unit * Nutritional / Prandial insulin per carb ratio of 1 unit per 6 grams CHO consumed
[2022-08-25 16:41] LABS: Cdiff Toxin B Gene (2yr or >) Positive Cdiff Gene (Neg)
[2022-08-25 17:05] LABS: Cdiff Antigen Positive; Cdiff Toxin A+B Negative Cdiff Toxin (Negative)
[2022-08-26 06:40] LABS: Basophils # (auto) 0.04 K/uL (0-0.2); Basophils % (auto) 0.3 %; Eosinophils # (auto) 0.53 K/uL (0-0.50); Eosinophils % (auto) 4.3 %; Hematocrit (blood only) 33.7 % (40.1-51.0); Hemoglobin 10.9 g/dl (14.0-18.0); Immature Granulocytes # (auto) 0.05 K/uL (0.00-0.02); Immature Granulocytes % (auto) 0.4 %; Lymphocytes # (auto) 2.25 K/uL (1.2-3.4); Lymphocytes % (auto) 18.3 %; Mean Corpuscular Hemoglobin 27.3 pg (25.0-34.0); Mean Corpuscular Hgb Conc 32.3 g/dL (32.0-36.0); Mean Corpuscular Volume 84.3 fL (80.0-100.0); Mean Platelet Volume 10.2 fL (9.4-12.4); Monocytes # (auto) 1.47 K/uL (0.24-0.82); Neutrophils # (auto) 7.93 K/uL (1.4-6.5); Neutrophils % (auto) 64.7 %; Platelet Count 297 K/uL (130-400); RDW Coefficient of Variation 13.9 % (11.5-14.5); RDW Standard Deviation 42.6 fL (36.4-46.3); White Blood Count 12.27 K/ul (4.8-10.8)
[2022-08-26 07:09] LABS: BUN Creatinine Ratio 20.8 (10-20); Calcium 8.6 mg/dl (8.5-10.1); Creatinine Clr Calc Pharmacy 61.8 ml/min; Est GFR (Non-African American) 77.7 ml/min; Magnesium 1.8 mg/dl (1.7-2.4); Potassium 3.7 mmol/L (3.5-5.1)
--- NOTE | 2022-08-26 07:38 | Hospitalist Progress Note ---
Date of Service August 26, 2022 Assessment & Plan (1) Cellulitis: (2) Surgical wound, non healing: (3) S/P above knee amputation: (4) Diabetes type 1, controlled: Plan Ron is a 67 y/o male who presented to the ER yesterday at recommendation from wound care clinic. His PMH includes 1 diabetes mellitus, pressure ulcers, left AKA with poor wound healing and suspected dehiscence and superimposed cellulitis, anemia, CKD, past MRSA/VRE infection, peripheral artery disease, hyp othyroidism, hypertension, dyslipidemia. Left AKA wound dehiscence with suspected cellulitis S/p left AKA 07/19/[address] Talavera for delayed surgical wound healing or bleeding from left BKA Patient seen by wound care date of admission, was noted to have nonhealing surgical wound with suspected developing surrounding cellulitis Wound was debrided at wound care, was recommended for IV antibiotics and reevaluation for surgical debridement versus wound VAC by wound care, presented to ER for subsequent treatment No leukocytosis, hemoglobin 11.9 - Seen by Dr. Soto, per his note- plan to proceed with wound vac over further surgical procedure. See orthopedics note for further detail. Patient with history of MRSA infection of the right heel 01/2022, Pseudomonas infection 05/02,VRE infection. - Wound cultures positive for pseudomonas, staph aureus. D/C dapto, will continue zosyn Pressure Ulcer of right BKA, Stage 3 - Per wound care Loose stools +Several episodes of loose stool per nursing, sent stool sample which was positive for c.diff gene PCR but negative for c.diff toxin- likely a carrier. +Patient notes some improvement today, has daily episodes of bowel incontinence at baseline. +Will monitor, if episodes of loose stool worsen significantly, will treat for c.diff Type 1 diabetes mellitus Last A1c 7.4% 05/2022, 6.8% today Patient blood sugars in the 300s. concern of device malfunctioning. will not use patient's device at this time and switch to glucose checks with basal bolus insulin while inpatient. Patient should have device verified before discharge, and if any are accurate may need replacement Patient CGM reviewed. He is on a rate of 1.5 basal per hour, correction 1-30, carb ratio 1:8. 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 No history of stents Continue aspirin/Plavix. If surgical re-intervention may hold Plavix, continue aspirin. Echo 11/2020 with EF 55 to 60% No recent symptoms of angina Continue metoprolol Continue statin No chest pain/chest pressure Peripheral artery disease With history of iliac stent 2014 bilateral, right common/external iliac 2017, right common femoral endarterectomy 11/2018 with patch, left femoral to PT composite graft 06/30, left anterior tibial bypass 11/19/2021, left AKA as noted above Continue antiplatelets as above Hypothyroidism Continue Synthroid Hypertension Continue metoprolol Held chlorthalidone for relative hypotension Dyslipidemia Hold atorvastatin while on Dapto DVT prophylaxis: Heparin 2/2 CKD Disposition: Medical/surgical Diet: Type I DM, heart healthy CODE STATUS: Full code Admission and Anticipated Discharge Date Admission Date: August 24, 2022 Supervising Physician Co-Signing Physician Notes Resident Physician Supervision Note: I independently interviewed and examined the patient and verified the perez history and physical, reviewed labs and image studies and agree with resident findings and care plan. Subjective Patient was seen and examined at bedside. No events overnight. Patient reports a few more episodes of bowel incontinence, although states it is better today. He notes that he has this issue at baseline- wears disposable briefs daily at home. Has been eating and drinking without issue. Denies any fever, body aches, chills, nausea. Review of Systems Review of Systems: As per HPI Physical Exam Constitutional: WD/WN, vitals as above Neck: trachea midline, no thyromegaly Respiratory: normal respiratory effort, lungs clear to auscultation Cardiovascular: RRR, no murmur, no edema Gastrointestinal (Abdomen): normal bowel sounds, soft, nontender, no hepatosplenomegaly Psychiatric: A+Ox3, euthymic affect Results & Data Results & Data ([facility]) Vital Signs (Past 12 Hours) Vital Signs Temp Pulse Resp BP BP Pulse Ox O2 Del Method 08/26/22 07:08 36.9 C 76 16 146/74 H 98 Room Air 08/25/22 22:11 36.8 C 79 18 168/74 H 98 Room Air Resident Activity Tracking Resident Involvement: Resident Care Provided Care Provided: Adult Hospital Medicine
[2022-08-26] MEDS ORDERED: INSULIN ASPART 100 UNITS/ML VIAL SC PRN (08:30)
[2022-08-26] MEDS: INSULIN ASPART PER UNIT SC SCH (08:36)
[2022-08-26] MEDS: ASPIRIN 81 MG ECTAB PO SCH (09:45)
[2022-08-26] MEDS: FERROUS SULFATE 325 MG TAB PO SCH ×2 (09:45→20:28)
[2022-08-26] MEDS: PANTOprazole 40 MG TAB PO SCH (09:45)
[2022-08-26] MEDS: METOPROLOL TARTRATE 25 MG TAB PO SCH ×2 (09:45→20:29)
[2022-08-26] MEDS: CLOPIDOGREL BISULFATE 75 MG TAB PO SCH (09:45)
[2022-08-26] MEDS: INSULIN, Rapid-Acting PUMP SCH ×4 (09:46→21:55)
[2022-08-26] MEDS: HEPARIN SOD 5,000 UNIT/0.5 ML VIAL SQ SCH ×2 (09:46→20:28)
[2022-08-26] MEDS: PIPERACILLIN/TAZOBACTAM 3.375 GM in DEXTROSE 5% 100 ML IV SCH ×3 (09:49→23:36)
--- NOTE | 2022-08-26 13:24 | Pharmacy Report ---
Pharmacy Glycemic Short Note 2 - Date of Service August 26, 2022 - Glycemic Short BSG Results (Last 24 hours): 08/25/22 08/25/22 08/26/22 17:24 20:49 05:58 Glucose 137 H POC Glucose 117 H 205 H 08/26/22 08/26/22 08:11 12:22 Glucose POC Glucose 130 H 231 H OUTPATIENT ANTIDIABETIC REGIMEN: * Novolog pump - 1.5 units/hr CF 30 CR 8 / per provider notes ASSESSMENT: 08/26: * BSGS [phone] mg/dL. Fasting BSG improved this morning 130 mg/dL. * Patient had pump supplies brought in last evening and was able to transition to insulin pump this morning. Lunch BSG 231 mg/dL * Continue to monitor insulin pump is function properly throughout the day, may sign off if proving reliable 08/25: * BSGs erratic the last 24h, [phone]/dL. Fasting BSG elevated this AM. Received 35 units of basal and 40 units of bolus insulin yesterday. * Tolerating diet and continues on antibiotics. * No insulin pump supplies this AM so plan to continue SQ for today. Possible plan for transition to pump tomorrow. Lantus titrated slightly to 37 units and Novolog parameters tightened. 08/24: * 67 year old admitted with potential infection, started on antibiotics. Concern for malfunctioning of insulin pump therefore now utilizing SQ insulin for now * Patient's home basal per pump ~36 units/day - BSGs elevated on admission likely related to infection. * Patient had been NPO this morning d/t possible surgical intervention, however no plans for procedure and provider to monitor on antibiotics for now. Patient changed to diet this AM. Per nurse, patient ordered meal late this AM - she was unaware and so no coverage was given for novolog * Lunch BSG trending up - will plan to continue novolog per home settings of pump. Added an additional 5 units of basal since now patient eating so that basal insulin for today will reflect what he receives with pump. Will transition to once daily basal in AM * DM educator in to see patient and to evaluate insulin pump. Patient to bring in supplies for pump - will consider starting insulin pump inpatient to determine if working correctly PLAN FOR INPATIENT GLYCEMIC CONTROL: * Hold outpatient oral diabetes medications * Basal insulin * Transition to insulin pump; one home basal 1.5 units/hr * Bolus insulin * Per insulin pump/patient management, current pump setting * Correction Factor: 30 mg/dL/unit * Nutritional / Prandial insulin per carb ratio of 1 unit per 8 grams CHO consumed
--- NOTE | 2022-08-26 14:57 | Progress Notes ---
DATE OF SERVICE: 08/26/2022 The patient is seen in conjunction with She Schmid the wound care nurse. The irrigating wound VAC is r emoved. The anterior medial wound is showing a good granulating base without any significant tunneli ng. It is probably 1 to 1.5 cm wide, at least a centimeter deep and 3 cm long. There is good granul ating tissue around it. There is a Vicryl suture, which was noted loose and removed. There is some marginal superficial wound slough debrided as encountered. The posterior wound also looks improved. There is some fibrinous debris and some necrotic tissue saúl t is debrided circumferentially in a sharp fashion with the scissors. He also used a rongeur. There was some bleeding better tissue present, a Vicryl suture was noted and removed. There is no tunneli ng and no exposed bone. The lesion is 2.5 cm wide, 5 cm long and at least 1.5 cm deep. We have agreed that a regular wound VAC would be appropriate at this time with recheck on Monday. There is no exposed bone. This appears to be within the skin and subcutaneous tissues. Improved com pared to a week ago. No abscess and no purulent drainage. Less odor to the wound. His cultures have grown out pseudomonas and staph. His white count today was 12.7. He is receiving piperacillin and tazobactam. PLAN: At this time is to continue with wound care and the wound VAC as well as antibiotics. We will reassess Monday. If the returns favorably and continues in that fashion, then likely will not need further surgery. However, if things do not improve, further surgery might be necessary. He do es feel some pain around certain margins of the wound there. Otherwise, the wound is well healed. Job ID: [id number]
--- NOTE | 2022-08-27 07:32 | Hospitalist Progress Note ---
Date of Service August 27, 2022 Assessment & Plan (1) Cellulitis: (2) Surgical wound, non healing: (3) S/P above knee amputation: (4) Diabetes type 1, controlled: Plan Ron is a 67 y/o male who presented to the ER yesterday at recommendation from wound care clinic. His PMH includes 1 diabetes mellitus, pressure ulcers, left AKA with poor wound healing and suspected dehiscence and superimposed cellulitis, anemia, CKD, past MRSA/VRE infection, peripheral artery disease, hyp othyroidism, hypertension, dyslipidemia. Left AKA wound dehiscence with suspected cellulitis S/p left AKA 07/19/[address] Talavera for delayed surgical wound healing or bleeding from left BKA Patient seen by wound care date of admission, was noted to have nonhealing surgical wound with suspected developing surrounding cellulitis Wound was debrided at wound care, was recommended for IV antibiotics and reevaluation for surgical debridement versus wound VAC by wound care, presented to ER for subsequent treatment - Seen by Dr. Soto, per his note- plan to proceed with wound vac over further surgical procedure. See orthopedics note for further detail. Patient with history of MRSA infection of the right heel 01/2022, Pseudomonas infection 05/02,VRE infection. - Wound cultures positive for pseudomonas, staph aureus. 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 +Patient notes continued improvement today, but has daily episodes of bowel incontinence at baseline. +Will monitor, if episodes of loose stool worsen significantly, will treat for c.diff Type 1 diabetes mellitus Last A1c 7.4% 05/2022, 6.8% this week Patient blood sugars in the 300s. concern of device malfunctioning. will not use patient's device at this time and switch to glucose checks with basal bolus insulin while inpatient. Patient should have device verified before discharge, and if any are accurate may need replacement Patient CGM reviewed. He is on a rate of 1.5 basal per hour, correction 1-30, carb ratio 1:8. 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 No history of stents Continue aspirin/Plavix. If surgical re-intervention may hold Plavix, continue aspirin. Echo 11/2020 with EF 55 to 60% No recent symptoms of angina Continue metoprolol Continue statin No chest pain/chest pressure Peripheral artery disease With history of iliac stent 2014 bilateral, right common/external iliac 2017, right common femoral endarterectomy 11/2018 with patch, left femoral to PT composite graft 06/30, left anterior tibial bypass 11/19/2021, left AKA as noted above Continue antiplatelets as above Hypothyroidism Continue Synthroid Hypertension Continue metoprolol Held chlorthalidone for relative hypotension Dyslipidemia Hold atorvastatin while on Dapto DVT prophylaxis: Heparin 2/2 CKD Disposition: Medical/surgical Diet: Type I DM, heart healthy CODE STATUS: Full code Admission and Anticipated Discharge Date Admission Date: August 24, 2022 Supervising Physician Co-Signing Physician Notes Resident Physician Supervision Note: I independently interviewed and examined the patient and verified the perez history and physical, reviewed labs and image studies and agree with resident findings and care plan. Subjective Patient seen and examined at bedside. No overnight events. Feels that loose stool is improving. Denies fever/chills/body aches/shortness of breath/chest pain. Review of Systems Review of Systems: As per HPI Physical Exam Constitutional: WD/WN, vitals as above Neck: trachea midline, no thyromegaly Respiratory: normal respiratory effort, lungs clear to auscultation Cardiovascular: RRR, no murmur, no edema Gastrointestinal (Abdomen): normal bowel sounds, soft, nontender, no hepatosplenomegaly Psychiatric: A+Ox3, euthymic affect Results & Data Results & Data ([facility]) Vital Signs (Past 12 Hours) Vital Signs Temp Pulse Resp BP Pulse Ox O2 Del Method 08/27/22 07:05 37.3 C 78 16 158/84 H 95 Room Air 08/26/22 20:25 Room Air 08/26/22 20:23 36.9 C 76 16 125/67 98 Room Air Resident Activity Tracking Resident Involvement: Resident Care Provided Care Provided: Adult Hospital Medicine
[2022-08-27 08:03] LABS: Basophils # (auto) 0.08 K/uL (0-0.2); Basophils % (auto) 0.8 %; Eosinophils # (auto) 0.56 K/uL (0-0.50); Eosinophils % (auto) 5.4 %; Hematocrit (blood only) 34.1 % (40.1-51.0); Hemoglobin 11.3 g/dl (14.0-18.0); Immature Granulocytes # (auto) 0.03 K/uL (0.00-0.02); Immature Granulocytes % (auto) 0.3 %; Lymphocytes # (auto) 1.89 K/uL (1.2-3.4); Lymphocytes % (auto) 18.2 %; Mean Corpuscular Hemoglobin 27.6 pg (25.0-34.0); Mean Corpuscular Hgb Conc 33.1 g/dL (32.0-36.0); Mean Corpuscular Volume 83.2 fL (80.0-100.0); Monocytes # (auto) 1.34 K/uL (0.24-0.82); Monocytes % (auto) 12.9 %; Neutrophils # (auto) 6.51 K/uL (1.4-6.5); Neutrophils % (auto) 62.4 %; Platelet Count 278 K/uL (130-400); RDW Coefficient of Variation 14.2 % (11.5-14.5); RDW Standard Deviation 42.9 fL (36.4-46.3); White Blood Count 10.41 K/ul (4.8-10.8)
[2022-08-27 08:31] LABS: BUN Creatinine Ratio 17.9 (10-20); Calcium 8.3 mg/dl (8.5-10.1); Creatinine Clr Calc Pharmacy 65.7 ml/min; Est GFR (Non-African American) 83.7 ml/min; Magnesium 1.8 mg/dl (1.7-2.4); Potassium 3.8 mmol/L (3.5-5.1)
[2022-08-27] MEDS: PIPERACILLIN/TAZOBACTAM 3.375 GM in DEXTROSE 5% 100 ML IV SCH ×2 (09:31→17:47)
[2022-08-27] MEDS: FERROUS SULFATE 325 MG TAB PO SCH ×2 (09:32→20:37)
[2022-08-27] MEDS: METOPROLOL TARTRATE 25 MG TAB PO SCH ×2 (09:32→20:37)
[2022-08-27] MEDS: ASPIRIN 81 MG ECTAB PO SCH (09:32)
[2022-08-27] MEDS: PANTOprazole 40 MG TAB PO SCH (09:32)
[2022-08-27] MEDS: HEPARIN SOD 5,000 UNIT/0.5 ML VIAL SQ SCH ×2 (09:32→20:36)
[2022-08-27] MEDS: CLOPIDOGREL BISULFATE 75 MG TAB PO SCH (09:32)
[2022-08-27] MEDS: INSULIN, Rapid-Acting PUMP SCH ×4 (09:32→20:37)
[2022-08-27] MEDS: BUTT PASTE (ZINC OXIDE 16%) 171 APPLN/57 GM JAR EXT SCH (18:17)
[2022-08-28] MEDS: PIPERACILLIN/TAZOBACTAM 3.375 GM in DEXTROSE 5% 100 ML IV SCH ×4 (00:12→23:43)
[2022-08-28] MEDS: BUTT PASTE (ZINC OXIDE 16%) 171 APPLN/57 GM JAR EXT SCH ×4 (00:15→23:43)
--- NOTE | 2022-08-28 07:09 | Hospitalist Progress Note ---
Date of Service August 28, 2022 Assessment & Plan (1) Cellulitis: (2) Surgical wound, non healing: (3) S/P above knee amputation: (4) Diabetes type 1, controlled: Plan Ron is a 67 y/o male who presented to the ER yesterday at recommendation from wound care clinic. His PMH includes 1 diabetes mellitus, pressure ulcers, left AKA with poor wound healing and suspected dehiscence and superimposed cellulitis, anemia, CKD, past MRSA/VRE infection, peripheral artery disease, hyp othyroidism, hypertension, dyslipidemia. Left AKA wound dehiscence with suspected cellulitis S/p left AKA 07/19/[address] Talavera for delayed surgical wound healing or bleeding from left BKA Patient seen by wound care date of admission, was noted to have nonhealing surgical wound with suspected developing surrounding cellulitis Wound was debrided at wound care, was recommended for IV antibiotics and reevaluation for surgical debridement versus wound VAC by wound care, presented to ER for subsequent treatment - Seen by Dr. Soto, per his note- plan to proceed with wound vac over further surgical procedure. See orthopedics note for further detail. Patient with history of MRSA infection of the right heel 01/2022, Pseudomonas infection 05/02,VRE infection. - Wound cultures positive for pseudomonas, staph aureus. 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 +Patient has daily episodes of bowel incontinence normally, feels he is at his baseline. +Will monitor, if episodes of loose stool worsen significantly, will treat for c.diff Type 1 diabetes mellitus Last A1c 7.4% 05/2022, 6.8% this week Patient blood sugars in the 300s. concern of device malfunctioning. will not use patient's device at this time and switch to glucose checks with basal bolus insulin while inpatient. Patient should have device verified before discharge, and if any are accurate may need replacement Patient CGM reviewed. He is on a rate of 1.5 basal per hour, correction 1-30, carb ratio 1:8. 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 No history of stents Continue aspirin/Plavix. If surgical re-intervention may hold Plavix, continue aspirin. Echo 11/2020 with EF 55 to 60% No recent symptoms of angina Continue metoprolol Continue statin No chest pain/chest pressure Peripheral artery disease With history of iliac stent 2014 bilateral, right common/external iliac 2017, right common femoral endarterectomy 11/2018 with patch, left femoral to PT composite graft 06/30, left anterior tibial bypass 11/19/2021, left AKA as noted above Continue antiplatelets as above Hypothyroidism Continue Synthroid Hypertension Continue metoprolol Held chlorthalidone for relative hypotension Dyslipidemia Hold atorvastatin while on Dapto DVT prophylaxis: Heparin 2/2 CKD Disposition: Medical/surgical Diet: Type I DM, heart healthy CODE STATUS: Full code Admission and Anticipated Discharge Date Admission Date: August 24, 2022 Supervising Physician Co-Signing Physician Notes Resident Physician Supervision Note: I independently interviewed and examined the patient and verified the perez history and physical, reviewed labs and image studies and agree with resident findings and care plan. Subjective Patient was seen and examined at beside. No overnight events. Tolerating meals without issue. States he is awaiting an update from Dr. Soto tomorrow. Denies SOB/chest pain/fever/body aches/chills. Review of Systems Review of Systems: As per HPI Physical Exam Constitutional: WD/WN, vitals as above Neck: trachea midline, no thyromegaly Respiratory: normal respiratory effort, lungs clear to auscultation Cardiovascular: RRR, no murmur, no edema Gastrointestinal (Abdomen): normal bowel sounds, soft, nontender, no hepatosplenomegaly Psychiatric: A+Ox3, euthymic affect Results & Data Results & Data ([facility]) Vital Signs (Past 12 Hours) Vital Signs Temp Pulse Resp BP Pulse Ox O2 Del Method 08/27/22 20:35 Room Air 08/27/22 21:15 36.8 C 70 20 125/68 98 Room Air Resident Activity Tracking Resident Involvement: Resident Care Provided Care Provided: Adult Hospital Medicine
[2022-08-28 07:19] LABS: Basophils # (auto) 0.07 K/uL (0-0.2); Basophils % (auto) 0.6 %; Eosinophils # (auto) 0.84 K/uL (0-0.50); Eosinophils % (auto) 7.8 %; Hematocrit (blood only) 35.2 % (40.1-51.0); Hemoglobin 11.5 g/dl (14.0-18.0); Immature Granulocytes # (auto) 0.04 K/uL (0.00-0.02); Immature Granulocytes % (auto) 0.4 %; Lymphocytes # (auto) 1.96 K/uL (1.2-3.4); Lymphocytes % (auto) 18.1 %; Mean Corpuscular Hemoglobin 27.3 pg (25.0-34.0); Mean Corpuscular Hgb Conc 32.7 g/dL (32.0-36.0); Mean Corpuscular Volume 83.4 fL (80.0-100.0); Mean Platelet Volume 10.4 fL (9.4-12.4); Monocytes # (auto) 1.34 K/uL (0.24-0.82); Monocytes % (auto) 12.4 %; Neutrophils # (auto) 6.58 K/uL (1.4-6.5); Neutrophils % (auto) 60.7 %; Platelet Count 310 K/uL (130-400); RDW Coefficient of Variation 14.2 % (11.5-14.5); RDW Standard Deviation 42.9 fL (36.4-46.3); Red Blood Count 4.22 M/uL (4.63-6.08); White Blood Count 10.83 K/ul (4.8-10.8)
[2022-08-28 07:30] LABS: BUN Creatinine Ratio 22.8 (10-20); Calcium 8.7 mg/dl (8.5-10.1); Creatinine Clr Calc Pharmacy 67.8 ml/min; Est GFR (African American) 100.8 ml/min; Magnesium 1.9 mg/dl (1.7-2.4); Potassium 4.4 mmol/L (3.5-5.1)
[2022-08-28] MEDS: PANTOprazole 40 MG TAB PO SCH (07:57)
[2022-08-28] MEDS: CLOPIDOGREL BISULFATE 75 MG TAB PO SCH (07:58)
[2022-08-28] MEDS: ASPIRIN 81 MG ECTAB PO SCH (07:58)
[2022-08-28] MEDS: HEPARIN SOD 5,000 UNIT/0.5 ML VIAL SQ SCH ×2 (07:58→20:29)
[2022-08-28] MEDS: METOPROLOL TARTRATE 25 MG TAB PO SCH ×2 (07:58→20:29)
[2022-08-28] MEDS: FERROUS SULFATE 325 MG TAB PO SCH ×2 (07:58→20:30)
[2022-08-28] MEDS: INSULIN, Rapid-Acting PUMP SCH ×4 (09:02→21:51)
--- NOTE | 2022-08-29 06:50 | Hospitalist Progress Note ---
Date of Service August 29, 2022 Assessment & Plan (1) Cellulitis: (2) Surgical wound, non healing: (3) S/P above knee amputation: (4) Diabetes type 1, controlled: Plan Ron is a 67 y/o male who presented to the ER yesterday at recommendation from wound care clinic. His PMH includes 1 diabetes mellitus, pressure ulcers, left AKA with poor wound healing and suspected dehiscence and superimposed cellulitis, anemia, CKD, past MRSA/VRE infection, peripheral artery disease, hyp othyroidism, hypertension, dyslipidemia. Left AKA wound dehiscence with suspected cellulitis S/p left AKA 07/19/[address] Talavera for delayed surgical wound healing or bleeding from left BKA Patient seen by wound care date of admission, was noted to have nonhealing surgical wound with suspected developing surrounding cellulitis Wound was debrided at wound care, was recommended for IV antibiotics and reevaluation for surgical debridement versus wound VAC by wound care, presented to ER for subsequent treatment - Seen by Dr. Soto, per his note- performed some debridement today and plan to proceed with wound vac over further surgical procedure. See orthopedics note for further detail. Patient with history of MRSA infection of the right heel 01/2022, Pseudomonas infection 05/02,VRE infection. - Wound cultures positive for pseudomonas, staph aureus. 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 +Patient has daily episodes of bowel incontinence normally, feels he is at his baseline. +Will monitor, if episodes of loose stool worsen significantly, will treat for c.diff Type 1 diabetes mellitus Last A1c 7.4% 05/2022, 6.8% this week Patient blood sugars in the 300s. concern of device malfunctioning. will not use patient's device at this time and switch to glucose checks with basal bolus insulin while inpatient. Patient should have device verified before discharge, and if any are accurate may need replacement Patient CGM reviewed. He is on a rate of 1.5 basal per hour, correction 1-30, carb ratio 1:8. 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 No history of stents Continue aspirin/Plavix. If surgical re-intervention may hold Plavix, continue aspirin. Echo 11/2020 with EF 55 to 60% No recent symptoms of angina Continue metoprolol Continue statin No chest pain/chest pressure Peripheral artery disease With history of iliac stent 2014 bilateral, right common/external iliac 2017, right common femoral endarterectomy 11/2018 with patch, left femoral to PT composite graft 06/30, left anterior tibial bypass 11/19/2021, left AKA as noted above Continue antiplatelets as above Hypothyroidism Continue Synthroid Hypertension Continue metoprolol Held chlorthalidone for relative hypotension Dyslipidemia Hold atorvastatin while on Dapto DVT prophylaxis: Heparin 2/2 CKD Disposition: Medical/surgical Diet: Type I DM, heart healthy CODE STATUS: Full code Admission and Anticipated Discharge Date Admission Date: August 24, 2022 Supervising Physician Co-Signing Physician Notes I personally examined the patient and verified all perez points of history and exam, discussed case, and agree with decision making with Dr Yap Happy with his progress. Notes that Dr. Riley felt like things were improving. Vitals noted, in general he is awake and alert pleasant no distress. HEENT normocephalic atraumatic mucous membranes moist. Breathing unlabored no accessory muscle use good effort. Skin shows no rashes no pallor or icterus. Neuro without focal deficits. Stump woundcontinue antibiotics and local wound care. Appreciate orthopedics i nput. Subjective Patient seen and examined at bedside. No events overnight. Patient denies any fever/body aches/chills. Did have some increased pain after wound debridement/wound vac removal. Review of Systems Review of Systems: As per HPI Physical Exam Constitutional: WD/WN, vitals as above Neck: trachea midline, no thyromegaly Respiratory: normal respiratory effort, lungs clear to auscultation Cardiovascular: RRR, no murmur, no edema Gastrointestinal (Abdomen): normal bowel sounds, soft, nontender, no hepatosplenomegaly Psychiatric: A+Ox3, euthymic affect Results & Data Results & Data ([facility]) Vital Signs (Past 12 Hours) Vital Signs Temp Pulse Resp BP Pulse Ox O2 Del Method 08/28/22 20:30 Room Air 08/28/22 20:26 37 C 72 16 124/64 97 Room Air Resident Activity Tracking Resident Involvement: Resident Care Provided Care Provided: Adult Hospital Medicine
[2022-08-29 07:31] LABS: Basophils # (auto) 0.07 K/uL (0-0.2); Eosinophils # (auto) 0.71 K/uL (0-0.50); Eosinophils % (auto) 10.1 %; Hematocrit (blood only) 35.9 % (40.1-51.0); Hemoglobin 11.4 g/dl (14.0-18.0); Immature Granulocytes # (auto) 0.03 K/uL (0.00-0.02); Immature Granulocytes % (auto) 0.4 %; Lymphocytes # (auto) 1.93 K/uL (1.2-3.4); Lymphocytes % (auto) 27.5 %; Mean Corpuscular Hgb Conc 31.8 g/dL (32.0-36.0); Mean Corpuscular Volume 85.1 fL (80.0-100.0); Mean Platelet Volume 10.1 fL (9.4-12.4); Monocytes # (auto) 0.98 K/uL (0.24-0.82); Monocytes % (auto) 13.9 %; Neutrophils # (auto) 3.31 K/uL (1.4-6.5); Neutrophils % (auto) 47.1 %; Platelet Count 326 K/uL (130-400); RDW Coefficient of Variation 14.5 % (11.5-14.5); RDW Standard Deviation 44.3 fL (36.4-46.3); Red Blood Count 4.22 M/uL (4.63-6.08); White Blood Count 7.03 K/ul (4.8-10.8)
[2022-08-29 07:50] LABS: BUN Creatinine Ratio 23.5 (10-20); Calcium 8.9 mg/dl (8.5-10.1); Est GFR (African American) 108.1 ml/min; Est GFR (Non-African American) 93.3 ml/min; Potassium 4.1 mmol/L (3.5-5.1)
[2022-08-29] MEDS: FERROUS SULFATE 325 MG TAB PO SCH ×2 (08:18→22:28)
[2022-08-29] MEDS: CLOPIDOGREL BISULFATE 75 MG TAB PO SCH (08:18)
[2022-08-29] MEDS: ASPIRIN 81 MG ECTAB PO SCH (08:18)
[2022-08-29] MEDS: BUTT PASTE (ZINC OXIDE 16%) 171 APPLN/57 GM JAR EXT SCH ×2 (08:18→16:32)
[2022-08-29] MEDS: PANTOprazole 40 MG TAB PO SCH (08:18)
[2022-08-29] MEDS: METOPROLOL TARTRATE 25 MG TAB PO SCH ×2 (08:18→22:28)
[2022-08-29] MEDS: HEPARIN SOD 5,000 UNIT/0.5 ML VIAL SQ SCH ×2 (08:18→22:28)
[2022-08-29] MEDS: PIPERACILLIN/TAZOBACTAM 3.375 GM in DEXTROSE 5% 100 ML IV SCH ×2 (08:19→16:32)
[2022-08-29] MEDS: INSULIN, Rapid-Acting PUMP SCH ×4 (08:50→22:33)
--- NOTE | 2022-08-29 09:36 | Progress Notes ---
DATE OF SERVICE: 08/29/2022 Mr. Chowdhury is resting comfortably in bed. He reports no problems over the weekend. His dressings jones ged in conjunction with the wound care nurse. His white count is within normal limits at 7, hemoglob in 11, hematocrit is 36. He is afebrile. His vital signs are stable. The wound VAC is removed. Th e upper wound is 3 cm long, 1.5 cm wide and maybe 1 cm deep with good granulating tissue throughout. There is some marginal wound slough laterally. Otherwise, a very good granulating bed without any u ndermining. The posterior wound shows improvement. There is granulating tissue. No significant nella inage. There is some marginal wound slough, especially on the posterior flap. This was sharply debr ided. Other areas of some marginally necrotic tissue and fibrinous exudate are debrided with the isaac geronimo. Pickups and scissors utilized. 4% topical lidocaine is applied prior to intervention. There is a little bit of tunneling anteromedially towards the other incision about 1 cm. Otherwise, no und ermining. No exposed bone. No significant erythema and no evidence of fluctuance, abscess or expose d bone. At this time, things are improving. Continue with the wound VAC. We will meet again Monday or to reevaluate. I would recommend continuing hospitalization and IV antibiotics until the wound is stabilized, and when that happens and further debridements are not necessary, I think then dischar ge to fdc facility or home would be appropriate. Job ID: [id number]
[2022-08-29] MEDS ORDERED: traMADol HCL 50 MG TABLET PO STA (09:51)
--- NOTE | 2022-08-29 20:26 | Billing Data ---
Date of Service August 29, 2022 Coding Level of Care Code 56134 Subseq Hosp Care Lvl 3
[2022-08-30] MEDS: PIPERACILLIN/TAZOBACTAM 3.375 GM in DEXTROSE 5% 100 ML IV SCH ×3 (00:20→16:33)
[2022-08-30] MEDS: BUTT PASTE (ZINC OXIDE 16%) 171 APPLN/57 GM JAR EXT SCH ×3 (00:20→16:32)
--- NOTE | 2022-08-30 07:15 | Hospitalist Progress Note ---
Date of Service August 30, 2022 Assessment & Plan (1) Cellulitis: (2) Surgical wound, non healing: (3) S/P above knee amputation: (4) Diabetes type 1, controlled: Plan Ron is a 67 y/o male who presented to the ER yesterday at recommendation from wound care clinic. His PMH includes 1 diabetes mellitus, pressure ulcers, left AKA with poor wound healing and suspected dehiscence and superimposed cellulitis, anemia, CKD, past MRSA/VRE infection, peripheral artery disease, hyp othyroidism, hypertension, dyslipidemia. Left AKA wound dehiscence with suspected cellulitis S/p left AKA 07/19/[address] Talavera for delayed surgical wound healing or bleeding from left BKA Patient seen by wound care date of admission, was noted to have nonhealing surgical wound with suspected developing surrounding cellulitis Wound was debrided at wound care, was recommended for IV antibiotics and reevaluation for surgical debridement versus wound VAC by wound care, presented to ER for subsequent treatment - Seen by Dr. Soto, per his note- performed some debridement today and plan to proceed with wound vac over further surgical procedure. See orthopedics note for further detail. Patient with history of MRSA infection of the right heel 01/2022, Pseudomonas infection 05/02,VRE infection. - Wound cultures positive for pseudomonas, staph aureus. 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 +Patient has daily episodes of bowel incontinence normally, feels he is at his baseline. +Will monitor, if episodes of loose stool worsen significantly, will treat for c.diff Type 1 diabetes mellitus Last A1c 7.4% 05/2022, 6.8% this week Patient blood sugars in the 300s. concern of device malfunctioning. will not use patient's device at this time and switch to glucose checks with basal bolus insulin while inpatient. Patient should have device verified before discharge, and if any are accurate may need replacement Patient CGM reviewed. He is on a rate of 1.5 basal per hour, correction 1-30, carb ratio 1:8. 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 No history of stents Continue aspirin/Plavix. If surgical re-intervention may hold Plavix, continue aspirin. Echo 11/2020 with EF 55 to 60% No recent symptoms of angina Continue metoprolol Continue statin No chest pain/chest pressure Peripheral artery disease With history of iliac stent 2014 bilateral, right common/external iliac 2017, right common femoral endarterectomy 11/2018 with patch, left femoral to PT composite graft 06/30, left anterior tibial bypass 11/19/2021, left AKA as noted above Continue antiplatelets as above Hypothyroidism Continue Synthroid Hypertension Continue metoprolol Held chlorthalidone for relative hypotension Dyslipidemia Hold atorvastatin while on Dapto DVT prophylaxis: Heparin 2/2 CKD Disposition: Medical/surgical Diet: Type I DM, heart healthy CODE STATUS: Full code Admission and Anticipated Discharge Date Admission Date: August 24, 2022 Supervising Physician Co-Signing Physician Notes I personally examined the patient and verified all perez points of history and exam, discussed case, and agree with decision making with Dr Yap No current complaints. Feels like he is getting better. Vitals noted, in general he is awake and alert pleasant no distress. HEENT normocephalic atraumatic mucous membranes moist. Breathing unlabored no accessory muscle use good effort. Skin shows no rashes no pallor or icterus. Wound VAC in place with no tracking erythema. Neuro without focal deficits. Stump woundcontinue antibiotics and local wound care. Appears to be stable/showing slow progress. Appreciate orthopedics input. Subjective Patient seen and examined at bedside. No events overnight. States that his pain after wound vac change has since resolved. Denies fever, chills, body aches, shortness of breath. Review of Systems Review of Systems: As per HPI Physical Exam Constitutional: WD/WN, vitals as above Neck: trachea midline, no thyromegaly Respiratory: normal respiratory effort, lungs clear to auscultation Cardiovascular: RRR, no murmur, no edema Gastrointestinal (Abdomen): normal bowel sounds, soft, nontender, no hepatosplenomegaly Skin: no rashes, warm and dry Psychiatric: A+Ox3, euthymic affect Results & Data Results & Data ([facility]) Vital Signs (Past 12 Hours) Vital Signs Temp Pulse Resp BP Pulse Ox O2 Del Method 08/29/22 22:30 Room Air 08/29/22 22:46 36.7 C 61 16 147/79 H 97 Room Air Resident Activity Tracking Resident Involvement: Resident Care Provided Care Provided: Adult Hospital Medicine
[2022-08-30] MEDS: METOPROLOL TARTRATE 25 MG TAB PO SCH ×2 (07:55→20:53)
[2022-08-30] MEDS: PANTOprazole 40 MG TAB PO SCH (07:55)
[2022-08-30] MEDS: HEPARIN SOD 5,000 UNIT/0.5 ML VIAL SQ SCH ×2 (07:55→20:54)
[2022-08-30] MEDS: ASPIRIN 81 MG ECTAB PO SCH (07:55)
[2022-08-30] MEDS: CLOPIDOGREL BISULFATE 75 MG TAB PO SCH (07:56)
[2022-08-30] MEDS: FERROUS SULFATE 325 MG TAB PO SCH ×2 (07:56→20:53)
[2022-08-30] MEDS: INSULIN, Rapid-Acting PUMP SCH ×4 (08:30→20:54)
--- NOTE | 2022-08-30 19:24 | Billing Data ---
Date of Service August 30, 2022 Coding Level of Care Code 52942 Subseq Hosp Care Lvl 2
[2022-08-31] MEDS: PIPERACILLIN/TAZOBACTAM 3.375 GM in DEXTROSE 5% 100 ML IV SCH ×3 (00:46→15:31)
[2022-08-31] MEDS: BUTT PASTE (ZINC OXIDE 16%) 171 APPLN/57 GM JAR EXT SCH ×3 (00:47→15:31)
[2022-08-31] MEDS: LEVOTHYROXINE SODIUM 175 MCG TABLET PO SCH (06:35)
[2022-08-31 07:04] LABS: Basophils # (auto) 0.07 K/uL (0-0.2); Basophils % (auto) 0.9 %; Eosinophils # (auto) 0.72 K/uL (0-0.50); Eosinophils % (auto) 9.1 %; Hematocrit (blood only) 34.8 % (40.1-51.0); Hemoglobin 11.5 g/dl (14.0-18.0); Immature Granulocytes # (auto) 0.02 K/uL (0.00-0.02); Immature Granulocytes % (auto) 0.3 %; Lymphocytes # (auto) 1.82 K/uL (1.2-3.4); Mean Corpuscular Hemoglobin 27.6 pg (25.0-34.0); Mean Corpuscular Volume 83.7 fL (80.0-100.0); Mean Platelet Volume 9.5 fL (9.4-12.4); Monocytes # (auto) 0.87 K/uL (0.24-0.82); Neutrophils # (auto) 4.43 K/uL (1.4-6.5); Neutrophils % (auto) 55.7 %; Platelet Count 327 K/uL (130-400); RDW Coefficient of Variation 14.6 % (11.5-14.5); RDW Standard Deviation 44.5 fL (36.4-46.3); Red Blood Count 4.16 M/uL (4.63-6.08); White Blood Count 7.93 K/ul (4.8-10.8)
[2022-08-31 07:28] LABS: BUN Creatinine Ratio 21.8 (10-20); Calcium 8.4 mg/dl (8.5-10.1); Creatinine Clr Calc Pharmacy 71.7 ml/min; Est GFR (Non-African American) 90.6 ml/min; Potassium 3.7 mmol/L (3.5-5.1)
--- NOTE | 2022-08-31 07:39 | Hospitalist Progress Note ---
Date of Service August 31, 2022 Assessment & Plan (1) Cellulitis: (2) Surgical wound, non healing: (3) S/P above knee amputation: (4) Diabetes type 1, controlled: Plan Ron is a 67 y/o male who presented to the ER yesterday at recommendation from wound care clinic. His PMH includes 1 diabetes mellitus, pressure ulcers, left AKA with poor wound healing and suspected dehiscence and superimposed cellulitis, anemia, CKD, past MRSA/VRE infection, peripheral artery disease, hyp othyroidism, hypertension, dyslipidemia. Left AKA wound dehiscence with suspected cellulitis S/p left AKA 07/19/[address] Talavera for delayed surgical wound healing or bleeding from left BKA Patient seen by wound care date of admission, was noted to have nonhealing surgical wound with suspected developing surrounding cellulitis Wound was debrided at wound care, was recommended for IV antibiotics and reevaluation for surgical debridement versus wound VAC by wound care, presented to ER for subsequent treatment - Seen by Dr. Soto, per his note- performed some debridement today and plan to proceed with wound vac over further surgical procedure. See orthopedics note for further detail. Patient with history of MRSA infection of the right heel 01/2022, Pseudomonas infection 05/02,VRE infection. - Wound cultures positive for pseudomonas, staph aureus. D/C dapto, continuing zosyn +Plan to be finalized by Dr. Soto, appreciate recommendations Pressure Ulcer of right BKA, Stage 3 - Per wound care Loose stools +Several episodes of loose stool per nursing, sent stool sample which was positive for c.diff gene PCR but negative for c.diff toxin- likely a carrier. +Patient has daily episodes of bowel incontinence normally, feels he is at his baseline. +Will monitor, if episodes of loose stool worsen significantly, will treat for c.diff Type 1 diabetes mellitus Last A1c 7.4% 05/2022, 6.8% this week Patient blood sugars in the 300s. concern of device malfunctioning. will not use patient's device at this time and switch to glucose checks with basal bolus insulin while inpatient. Patient should have device verified before discharge, and if any are accurate may need replacement Patient CGM reviewed. He is on a rate of 1.5 basal per hour, correction 1-30, carb ratio 1:8. 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 No history of stents Continue aspirin/Plavix. If surgical re-intervention may hold Plavix, continue aspirin. Echo 11/2020 with EF 55 to 60% No recent symptoms of angina Continue metoprolol Continue statin No chest pain/chest pressure Peripheral artery disease With history of iliac stent 2014 bilateral, right common/external iliac 2017, right common femoral endarterectomy 11/2018 with patch, left femoral to PT composite graft 06/30, left anterior tibial bypass 11/19/2021, left AKA as noted above Continue antiplatelets as above Hypothyroidism Continue Synthroid Hypertension Continue metoprolol Held chlorthalidone for relative hypotension Dyslipidemia Hold atorvastatin while on Dapto DVT prophylaxis: Heparin 2/2 CKD Disposition: Medical/surgical Diet: Type I DM, heart healthy CODE STATUS: Full code Admission and Anticipated Discharge Date Admission Date: August 24, 2022 Supervising Physician Co-Signing Physician Notes I personally examined the patient and verified all perez points of history and exam, discussed case, and agree with decision making with Dr Yap no complaints, feels like he's doing better slowly and progressively. watching yepez is right. Vitals noted, in general he is awake and alert pleasant no distress. HEENT normocephalic atraumatic mucous membranes moist. Breathing unlabored no accessory muscle use good effort. Skin shows no rashes no pallor or icterus. Wound VAC in place with no tracking erythema. Neuro without focal deficits. Stump woundcontinue antibiotics and local wound care. Appears to be stable/showing slow progress. Appreciate orthopedics input. starting to suspect that he'll be able to go home w wound vac Subjective Patient seen and examined at bedside. No changes or events overnight. Denies any current pain, headaches, fevers, body aches, chills. Review of Systems Review of Systems: As per HPI Physical Exam Constitutional: WD/WN, vitals as above Neck: trachea midline, no thyromegaly Respiratory: normal respiratory effort, lungs clear to auscultation Cardiovascular: RRR, no murmur, no edema Gastrointestinal (Abdomen): normal bowel sounds, soft, nontender, no hepatosplenomegaly Psychiatric: A+Ox3, euthymic affect Results & Data Results & Data ([facility]) Vital Signs (Past 12 Hours) Vital Signs Temp Pulse Resp BP BP Pulse Ox O2 Del Method 08/31/22 07:07 36.8 C 66 16 137/75 97 Room Air 08/30/22 20:30 36.9 C 71 18 138/71 98 Room Air Resident Activity Tracking Resident Involvement: Resident Care Provided Care Provided: Adult Hospital Medicine
[2022-08-31] MEDS: METOPROLOL TARTRATE 25 MG TAB PO SCH ×2 (08:28→20:48)
[2022-08-31] MEDS: PANTOprazole 40 MG TAB PO SCH (08:28)
[2022-08-31] MEDS: ASPIRIN 81 MG ECTAB PO SCH (08:29)
[2022-08-31] MEDS: CLOPIDOGREL BISULFATE 75 MG TAB PO SCH (08:29)
[2022-08-31] MEDS: FERROUS SULFATE 325 MG TAB PO SCH ×2 (08:29→20:48)
[2022-08-31] MEDS: HEPARIN SOD 5,000 UNIT/0.5 ML VIAL SQ SCH ×2 (08:30→20:47)
[2022-08-31] MEDS: INSULIN, Rapid-Acting PUMP SCH ×4 (09:00→20:47)
--- NOTE | 2022-08-31 18:43 | Billing Data ---
Date of Service August 31, 2022 Coding Level of Care Code 71494 Subseq Hosp Care Lvl 3
[2022-09-01] MEDS: BUTT PASTE (ZINC OXIDE 16%) 171 APPLN/57 GM JAR EXT SCH ×4 (00:24→23:47)
[2022-09-01] MEDS: PIPERACILLIN/TAZOBACTAM 3.375 GM in DEXTROSE 5% 100 ML IV SCH ×4 (00:24→23:47)
[2022-09-01] MEDS: LEVOTHYROXINE SODIUM 175 MCG TABLET PO SCH (04:16)
[2022-09-01 06:35] LABS: Basophils # (auto) 0.07 K/uL (0-0.2); Basophils % (auto) 0.7 %; Eosinophils # (auto) 0.97 K/uL (0-0.50); Eosinophils % (auto) 9.8 %; Hematocrit (blood only) 35.1 % (40.1-51.0); Hemoglobin 11.4 g/dl (14.0-18.0); Immature Granulocytes # (auto) 0.03 K/uL (0.00-0.02); Immature Granulocytes % (auto) 0.3 %; Lymphocytes % (auto) 20.2 %; Mean Corpuscular Hgb Conc 32.5 g/dL (32.0-36.0); Mean Corpuscular Volume 83.2 fL (80.0-100.0); Mean Platelet Volume 9.6 fL (9.4-12.4); Monocytes # (auto) 1.11 K/uL (0.24-0.82); Monocytes % (auto) 11.2 %; Neutrophils % (auto) 57.8 %; Platelet Count 337 K/uL (130-400); RDW Coefficient of Variation 14.3 % (11.5-14.5); RDW Standard Deviation 43.7 fL (36.4-46.3); Red Blood Count 4.22 M/uL (4.63-6.08); White Blood Count 9.88 K/ul (4.8-10.8)
[2022-09-01 06:57] LABS: BUN Creatinine Ratio 30.2 (10-20); Calcium 8.7 mg/dl (8.5-10.1); Creatinine Clr Calc Pharmacy 72.5 ml/min; Est GFR (African American) 105.5 ml/min
--- NOTE | 2022-09-01 07:58 | Hospitalist Progress Note ---
Date of Service September 01, 2022 Assessment & Plan (1) Cellulitis: (2) Surgical wound, non healing: (3) S/P above knee amputation: (4) Diabetes type 1, controlled: Plan Ron is a 67 y/o male who presented to the ER yesterday at recommendation from wound care clinic. His PMH includes 1 diabetes mellitus, pressure ulcers, left AKA with poor wound healing and suspected dehiscence and superimposed cellulitis, anemia, CKD, past MRSA/VRE infection, peripheral artery disease, hyp othyroidism, hypertension, dyslipidemia. Left AKA wound dehiscence with suspected cellulitis S/p left AKA 07/19/[address] Talavera for delayed surgical wound healing or bleeding from left BKA Patient seen by wound care date of admission, was noted to have nonhealing surgical wound with suspected developing surrounding cellulitis Wound was debrided at wound care, was recommended for IV antibiotics and reevaluation for surgical debridement versus wound VAC by wound care, presented to ER for subsequent treatment - Followed by Dr. Soto, per his note- has recently performed some debridement and plan to proceed with wound vac over further surgical procedure. See orthopedics note for further detail. Patient with history of MRSA infection of the right heel 01/2022, Pseudomonas infection 05/02,VRE infection. - Wound cultures positive for pseudomonas, staph aureus. D/C dapto, continuing zosyn -Considering options of antibiotic treatment upon discharge +Plan to be finalized by Dr. Soto, appreciate recommendations +Added calmoseptine cream Pressure Ulcer of right BKA, Stage 3 - Per wound care Loose stools +Several episodes of loose stool per nursing, sent stool sample which was positive for c.diff gene PCR but negative for c.diff toxin- likely a carrier. +Patient has daily episodes of bowel incontinence normally, feels he is at his baseline. +Will monitor, if episodes of loose stool worsen significantly, will treat for c.diff Type 1 diabetes mellitus Last A1c 7.4% 05/2022, 6.8% this week Patient blood sugars in the 300s. concern of device malfunctioning. will not use patient's device at this time and switch to glucose checks with basal bolus insulin while inpatient. Patient should have device verified before discharge, and if any are accurate may need replacement Patient CGM reviewed. He is on a rate of 1.5 basal per hour, correction 1-30, carb ratio 1:8. 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 No history of stents Continue aspirin/Plavix. If surgical re-intervention may hold Plavix, continue aspirin. Echo 11/2020 with EF 55 to 60% No recent symptoms of angina Continue metoprolol Continue statin No chest pain/chest pressure Peripheral artery disease With history of iliac stent 2014 bilateral, right common/external iliac 2017, right common femoral endarterectomy 11/2018 with patch, left femoral to PT composite graft 06/30, left anterior tibial bypass 11/19/2021, left AKA as noted above Continue antiplatelets as above Hypothyroidism Continue Synthroid Hypertension Continue metoprolol Held chlorthalidone for relative hypotension Dyslipidemia Hold atorvastatin while on Dapto DVT prophylaxis: Heparin 2/2 CKD Disposition: Medical/surgical Diet: Type I DM, heart healthy CODE STATUS: Full code Admission and Anticipated Discharge Date Admission Date: August 24, 2022 Supervising Physician Co-Signing Physician Notes I personally examined the patient and verified all perez points of history and exam, discussed case, and agree with decision making with Dr Yap no acute complaints. awaiting insurance approval/home setup for wound vac. Vitals noted, in general he is awake and alert pleasant no distress. HEENT normocephalic atraumatic mucous membranes moist. Breathing unlabored no accessory muscle use good effort. Skin shows no rashes no pallor or icterus. wound images reviewed. Neuro without focal deficits. Stump woundimproving. will discuss discharge plan regarding antibiotics with ortho. continue wound vac. once wound vac set up for home, would be safe for dc with ongoing wound care and close outpt f/u Discharge planning not completed. DVT proph - heparin SQ otherwise as above Subjective Patient seen and examined at bedside. States his buttocks is sore from incontinence, requests calmoseptine cream which he uses at home. No other complaints today. Review of Systems Review of Systems: As per HPI Physical Exam Constitutional: WD/WN, vitals as above Neck: trachea midline, no thyromegaly Respiratory: normal respiratory effort, lungs clear to auscultation Cardiovascular: RRR, no murmur, no edema Gastrointestinal (Abdomen): normal bowel sounds, soft, nontender, no hepatosplenomegaly Psychiatric: A+Ox3, euthymic affect Results & Data Results & Data ([facility]) Vital Signs (Past 12 Hours) Vital Signs Temp Pulse Resp BP BP Pulse Ox O2 Del Method 09/01/22 05:52 36.8 C 69 14 147/77 H 97 Room Air 08/31/22 20:46 36.7 C 68 16 148/80 H 95 Room Air Resident Activity Tracking Resident Involvement: Resident Care Provided Care Provided: Adult Hospital Medicine
[2022-09-01] MEDS: METOPROLOL TARTRATE 25 MG TAB PO SCH ×2 (08:10→20:47)
[2022-09-01] MEDS: PANTOprazole 40 MG TAB PO SCH (08:10)
[2022-09-01] MEDS: ASPIRIN 81 MG ECTAB PO SCH (08:10)
[2022-09-01] MEDS: HEPARIN SOD 5,000 UNIT/0.5 ML VIAL SQ SCH ×2 (08:11→19:51)
[2022-09-01] MEDS: CLOPIDOGREL BISULFATE 75 MG TAB PO SCH (08:11)
[2022-09-01] MEDS: FERROUS SULFATE 325 MG TAB PO SCH ×2 (08:11→20:46)
[2022-09-01] MEDS: INSULIN, Rapid-Acting PUMP SCH ×4 (08:43→21:22)
[2022-09-01] MEDS: MENTHOL-ZINC OXIDE 360 APPLN/120 GM TUBE EXT SCH ×2 (15:31→23:47)
[2022-09-02] MEDS: LEVOTHYROXINE SODIUM 175 MCG TABLET PO SCH (05:56)
--- NOTE | 2022-09-02 06:49 | Hospitalist Progress Note ---
Date of Service September 02, 2022 Assessment & Plan (1) Cellulitis: (2) Surgical wound, non healing: (3) S/P above knee amputation: (4) Diabetes type 1, controlled: Plan Ron is a 67 y/o male who presented to the ER yesterday at recommendation from wound care clinic. His PMH includes 1 diabetes mellitus, pressure ulcers, left AKA with poor wound healing and suspected dehiscence and superimposed cellulitis, anemia, CKD, past MRSA/VRE infection, peripheral artery disease, hyp othyroidism, hypertension, dyslipidemia. Left AKA wound dehiscence with suspected cellulitis S/p left AKA 07/19/[address] Talavera for delayed surgical wound healing or bleeding from left BKA Patient seen by wound care date of admission, was noted to have nonhealing surgical wound with suspected developing surrounding cellulitis Wound was debrided at wound care, was recommended for IV antibiotics and reevaluation for surgical debridement versus wound VAC by wound care, presented to ER for subsequent treatment - Followed by Dr. Soto, per his note- has recently performed some debridement and plan to proceed with wound vac over further surgical procedure. See orthopedics note for further detail. Patient with history of MRSA infection of the right heel 01/2022, Pseudomonas infection 05/02,VRE infection. - Wound cultures positive for pseudomonas, staph aureus. D/C dapto, continuing zosyn -Considering options of antibiotic treatment upon discharge- expecting to discharge patient with a few days of PO antibiotics -CM working on transportation and wound vac approval Pressure Ulcer of right BKA, Stage 3 - Per wound care Loose stools +Several episodes of loose stool per nursing, sent stool sample which was positive for c.diff gene PCR but negative for c.diff toxin- likely a carrier. +Patient has daily episodes of bowel incontinence normally, feels he is at his baseline. +Will monitor, if episodes of loose stool worsen significantly, will treat for c.diff Type 1 diabetes mellitus Last A1c 7.4% 05/2022, 6.8% this week Patient blood sugars in the 300s. concern of device malfunctioning. will not use patient's device at this time and switch to glucose checks with basal bolus insulin while inpatient. Patient should have device verified before discharge, and if any are accurate may need replacement Patient CGM reviewed. He is on a rate of 1.5 basal per hour, correction 1-30, carb ratio 1:8. 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 No history of stents Continue aspirin/Plavix. If surgical re-intervention may hold Plavix, continue aspirin. Echo 11/2020 with EF 55 to 60% No recent symptoms of angina Continue metoprolol Continue statin No chest pain/chest pressure Peripheral artery disease With history of iliac stent 2014 bilateral, right common/external iliac 2017, right common femoral endarterectomy 11/2018 with patch, left femoral to PT composite graft 06/30, left anterior tibial bypass 11/19/2021, left AKA as noted above Continue antiplatelets as above Hypothyroidism Continue Synthroid Hypertension Continue metoprolol Held chlorthalidone for relative hypotension Dyslipidemia Hold atorvastatin while on Dapto DVT prophylaxis: Heparin 2/2 CKD Disposition: Medical/surgical Diet: Type I DM, heart healthy CODE STATUS: Full code Admission and Anticipated Discharge Date Admission Date: August 24, 2022 Supervising Physician Co-Signing Physician Notes I personally examined the patient and verified all perez points of history and exam, discussed case, and agree with decision making with Dr Yap no acute complaints. awaiting insurance approval/home setup for wound vac. Vitals noted, in general he is awake and alert pleasant no distress. HEENT normocephalic atraumatic mucous membranes moist. Breathing unlabored no accesso ry muscle use good effort. Skin shows no rashes no pallor or icterus. wound images reviewed. Neuro without focal deficits. Stump woundimproving. Discussed with Ortho. WOund looks clean, no foul smell. Labs look improved, concern over c diff history. Will not give unnecessary prolonged antibiotic use. Plan to continue for another 24-48 hours. continue wound vac. once wound vac set up for home, would be safe for dc with ongoing wound care and close outpt f/u DVT proph - heparin SQ otherwise as above Subjective Patient seen and examined at bedside. No events overnight. Patient states he is concerned about going home tomorrow- unsure if wound vac will be approved by then and also does not want his daughters to have to travel in the [place] weather. Review of Systems Review of Systems: As per HPI Physical Exam Constitutional: WD/WN, vitals as above Neck: trachea midline, no thyromegaly Respiratory: normal respiratory effort, lungs clear to auscultation Cardiovascular: RRR, no murmur, no edema Gastrointestinal (Abdomen): normal bowel sounds, soft, nontender, no hepatosplenomegaly Psychiatric: A+Ox3, euthymic affect Results & Data Results & Data ([facility]) Vital Signs (Past 12 Hours) Vital Signs Temp Pulse Resp BP Pulse Ox O2 Del Method 09/02/22 00:05 36.8 C 67 16 114/72 97 Room Air 09/01/22 19:49 36.8 C 69 14 138/73 98 Room Air Resident Activity Tracking Resident Involvement: Resident Care Provided Care Provided: Adult Hospital Medicine
[2022-09-02] MEDS: PIPERACILLIN/TAZOBACTAM 3.375 GM in DEXTROSE 5% 100 ML IV SCH ×2 (09:12→16:39)
[2022-09-02] MEDS: BUTT PASTE (ZINC OXIDE 16%) 171 APPLN/57 GM JAR EXT SCH ×2 (09:15→16:43)
[2022-09-02] MEDS: MENTHOL-ZINC OXIDE 360 APPLN/120 GM TUBE EXT SCH ×2 (09:15→16:43)
[2022-09-02 09:28] LABS: Basophils # (auto) 0.08 K/uL (0-0.2); Basophils % (auto) 0.9 %; Eosinophils # (auto) 0.75 K/uL (0-0.50); Eosinophils % (auto) 8.6 %; Immature Granulocytes # (auto) 0.04 K/uL (0.00-0.02); Immature Granulocytes % (auto) 0.5 %; Lymphocytes % (auto) 20.5 %; Mean Corpuscular Hemoglobin 27.1 pg (25.0-34.0); Mean Corpuscular Hgb Conc 31.6 g/dL (32.0-36.0); Mean Corpuscular Volume 85.8 fL (80.0-100.0); Mean Platelet Volume 9.7 fL (9.4-12.4); Monocytes # (auto) 0.71 K/uL (0.24-0.82); Monocytes % (auto) 8.1 %; Neutrophils # (auto) 5.39 K/uL (1.4-6.5); Neutrophils % (auto) 61.4 %; Platelet Count 368 K/uL (130-400); RDW Coefficient of Variation 14.5 % (11.5-14.5); RDW Standard Deviation 45.4 fL (36.4-46.3); Red Blood Count 4.43 M/uL (4.63-6.08); White Blood Count 8.77 K/ul (4.8-10.8)
[2022-09-02] MEDS ORDERED: traMADol HCL 50 MG TABLET PO PRN (09:37)
[2022-09-02] MEDS ORDERED: ACETAMINOPHEN 325 MG TAB PO PRN (09:38)
[2022-09-02] MEDS: HEPARIN SOD 5,000 UNIT/0.5 ML VIAL SQ SCH ×2 (09:46→20:56)
[2022-09-02] MEDS: METOPROLOL TARTRATE 25 MG TAB PO SCH ×2 (09:47→20:56)
[2022-09-02] MEDS: ASPIRIN 81 MG ECTAB PO SCH (09:47)
[2022-09-02] MEDS: CLOPIDOGREL BISULFATE 75 MG TAB PO SCH (09:47)
[2022-09-02] MEDS: FERROUS SULFATE 325 MG TAB PO SCH ×2 (09:47→20:56)
[2022-09-02] MEDS: PANTOprazole 40 MG TAB PO SCH (09:48)
[2022-09-02 09:58] LABS: BUN Creatinine Ratio 34.9 (10-20); Calcium 8.8 mg/dl (8.5-10.1); Creatinine Clr Calc Pharmacy 72.5 ml/min; Est GFR (African American) 105.5 ml/min; Potassium 3.9 mmol/L (3.5-5.1)
[2022-09-02] MEDS: INSULIN, Rapid-Acting PUMP SCH ×4 (10:11→23:01)
--- NOTE | 2022-09-02 13:16 | Progress Notes ---
DATE OF SERVICE: 09/02/2022 No problems noted. Afebrile, stable vital signs. White count normal. Wound VAC changed. There is s ome eschar along the margins of the incision and some minor areas of incomplete healing. The two diana or areas are evaluated. There are both very healthy in appearance with good granulating tissue and s ome marginal wound slough, which is debrided with a curette after application of topical lidocaine. No significant undermining or abscess, no drainage and 90% healthy tissue. Continue the wound VAC. We put some Aquacel Ag in the skin creases posteriorly. I spoke with Dr. Ellis. I think that it i s reasonable to transition him to a brief few day course of oral antibiotics. Continue the wound VAC and he can be discharged home with followup in our office in about 7-10 days. He has an appointment scheduled for around that time. He will need home health services for his wound VAC and will need t o be seen in the [facility] weekly for wound VAC changes and wound care. There is no surrounding erythema, no significant swelling or induration. Job ID: [id number]
[2022-09-03] MEDS: PIPERACILLIN/TAZOBACTAM 3.375 GM in DEXTROSE 5% 100 ML IV SCH ×3 (00:21→15:38)
[2022-09-03] MEDS: MENTHOL-ZINC OXIDE 360 APPLN/120 GM TUBE EXT SCH ×3 (00:21→15:41)
[2022-09-03] MEDS: BUTT PASTE (ZINC OXIDE 16%) 171 APPLN/57 GM JAR EXT SCH ×3 (00:21→15:41)
[2022-09-03] MEDS: LEVOTHYROXINE SODIUM 175 MCG TABLET PO SCH (05:00)
[2022-09-03] MEDS: ADVANCED PROBIOTIC 1250 MG CAPSULE PO SCH (09:07)
[2022-09-03] MEDS: PANTOprazole 40 MG TAB PO SCH (09:08)
[2022-09-03] MEDS: METOPROLOL TARTRATE 25 MG TAB PO SCH ×2 (09:08→22:06)
[2022-09-03] MEDS: LOPERAMIDE HCL 2 MG CAP PO PRN ×2 (09:08→15:38)
[2022-09-03] MEDS: FERROUS SULFATE 325 MG TAB PO SCH ×2 (09:10→22:06)
[2022-09-03] MEDS: ASPIRIN 81 MG ECTAB PO SCH (09:10)
[2022-09-03] MEDS: CLOPIDOGREL BISULFATE 75 MG TAB PO SCH (09:10)
[2022-09-03] MEDS: HEPARIN SOD 5,000 UNIT/0.5 ML VIAL SQ SCH ×2 (09:27→22:09)
[2022-09-03] MEDS: INSULIN, Rapid-Acting PUMP SCH ×4 (09:41→21:45)
[2022-09-03 10:09] LABS: Basophils # (auto) 0.08 K/uL (0-0.2); Basophils % (auto) 0.8 %; Eosinophils # (auto) 0.95 K/uL (0-0.50); Eosinophils % (auto) 9.2 %; Hematocrit (blood only) 38.5 % (40.1-51.0); Hemoglobin 12.6 g/dl (14.0-18.0); Immature Granulocytes # (auto) 0.04 K/uL (0.00-0.02); Immature Granulocytes % (auto) 0.4 %; Lymphocytes # (auto) 1.69 K/uL (1.2-3.4); Lymphocytes % (auto) 16.3 %; Mean Corpuscular Hemoglobin 27.5 pg (25.0-34.0); Mean Corpuscular Hgb Conc 32.7 g/dL (32.0-36.0); Mean Corpuscular Volume 84.1 fL (80.0-100.0); Mean Platelet Volume 9.8 fL (9.4-12.4); Monocytes # (auto) 0.88 K/uL (0.24-0.82); Monocytes % (auto) 8.5 %; Neutrophils # (auto) 6.73 K/uL (1.4-6.5); Neutrophils % (auto) 64.8 %; Platelet Count 357 K/uL (130-400); RDW Coefficient of Variation 14.6 % (11.5-14.5); RDW Standard Deviation 44.3 fL (36.4-46.3); Red Blood Count 4.58 M/uL (4.63-6.08); White Blood Count 10.37 K/ul (4.8-10.8)
[2022-09-03 10:27] LABS: BUN Creatinine Ratio 34.4 (10-20); Calcium 9.8 mg/dl (8.5-10.1); Creatinine Clr Calc Pharmacy 69.3 ml/min; Est GFR (African American) 103.5 ml/min; Est GFR (Non-African American) 89.3 ml/min; Potassium 4.3 mmol/L (3.5-5.1)
--- NOTE | 2022-09-03 12:42 | Hospitalist Progress Note ---
Date of Service September 03, 2022 Assessment & Plan (1) Cellulitis: Plan: Pt is a 67 y/o male who presented to the hospital at recommendation from wound care clinic d/t poor wound healing of his left AKA. His PMH includes 1 diabetes mellitus, pressure ulcers, left AKA with poor wound healing and suspected dehiscence and superimposed cellulitis, anemia, CKD, past MRSA/VRE infection, peripheral artery disease, hypothyroidism, hypertension, dyslipidemia. Left AKA wound dehiscence with suspected cellulitis S/p left AKA 07/19/[address] Talavera for delayed surgical wound healing or bleeding from left BKA Patient seen by wound care date of admission, was noted to have nonhealing surgical wound with suspected developing surrounding cellulitis Wound was debrided at wound care, was recommended for IV antibiotics and reevaluation for surgical debridement versus wound VAC by wound care, presented to ER for subsequent treatment - Followed by Dr. Soto, per his note- has recently performed some debridement and plan to proceed with wound vac over further surgical procedure. See orthopedics note for further detail. Patient with history of MRSA infection of the right heel 01/2022, Pseudomonas infection 05/02,VRE infection. - Wound cultures positive for pseudomonas, staph aureus. D/C dapto, continue zosyn while inpatient - will discontinue ABX upon d/c - CM working on transportation and wound vac approval (most likely delayed d/t holiday) Pressure Ulcer of right BKA, Stage 3 - Per wound care Loose stools - Several episodes of loose stool per nursing, sent stool sample which was positive for c.diff gene PCR but negative for c.diff toxin- likely a carrier w/o active infection - Patient has daily episodes of bowel incontinence normally - Pt feels that increased stooling is d/t ABX use - Because c. diff infection unlikely at this point, began loperamide PRN to avoid skin irritation/breakdown in addition to probiotic each morning Type 1 diabetes mellitus Last A1c 7.4% 05/2022, 6.8% this hospitalization Patient blood sugars in the 300s. concern of device malfunctioning. will not use patient's device at this time and switch to glucose checks with basal bolus insulin while inpatient. Patient should have device verified before discharge, and if any are inaccurate may need replacement Patient CGM reviewed. He is on a rate of 1.5 basal per hour, correction 1-30, carb ratio 1:8. 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 No history of stents Continue aspirin and plavix Echo 11/2020 with EF 55 to 60% No recent symptoms of angina Continue metoprolol Continue statin No chest pain/chest pressure Peripheral artery disease With history of iliac stent 2014 bilateral, right common/external iliac 2017, right common femoral endarterectomy 11/2018 with patch, left femoral to PT composite graft 06/30, left anterior tibial bypass 11/19/2021, left AKA as noted above Continue antiplatelets as above Hypothyroidism Continue Synthroid Hypertension Continue metoprolol Held chlorthalidone for relative hypotension - BP still within reasonable range, will restart if BP elevate Dyslipidemia continue atorvastatin (2) Surgical wound, non healing: (3) S/P above knee amputation: (4) Diabetes type 1, controlled: Plan DVT prophylaxis: Heparin 2/2 CKD Disposition: Medical/surgical, awaiting auth approval for home wound vac, home health services able to start 09/05 Diet: Type I DM, heart healthy CODE STATUS: Full code Admission and Anticipated Discharge Date Admission Date: August 24, 2022 Supervising Physician Co-Signing Physician Notes I personally examined the patient and verified all perez points of history and exam, discussed case, and agree with decision making with Dr Severino no acute complaints. awaiting insurance approval/home setup for wound vac. Vitals noted, in general he is awake and alert pleasant no distress. HEENT normocephalic atraumatic mucous membranes moist. Breathing unlabored no accessory muscle use good effort. Skin shows no rashes no pallor or icterus. wound images reviewed. Neuro without focal deficits. Stump woundimproving. Discussed with Ortho. WOund looks clean, no foul smell. Labs look improved, concern over c diff history. Will not give unnecessary prolonged antibiotic use. Plan to discontinue antibiotics in AM of 09/04 continue wound vac. once wound vac set up for home, would be safe for dc with ongoing wound care and close outpt f/u Will likely stay over weekend. DVT proph - heparin SQ otherwise as above Subjective Pt is a 67 y/o male who presented to the hospital at recommendation from wound care clinic d/t poor wound healing of his left AKA. His PMH includes 1 diabetes mellitus, pressure ulcers, left AKA with poor wound healing and suspected dehiscence and superimposed cellulitis, anemia, CKD, past MRSA/VRE infection, peripheral artery disease, hypothyroidism, hypertension, dyslipidemia. Today, pt is feeling well. No new symptoms of chest pain, SOB, or pain. Pt understands the plan moving forward- set up a home wound vac and home nursing to help with wound care w/ wound care f/u as well. Pt explains that he believes his increased loose stool is due to the ABX and he typically takes a probiotic at home that he has not been receiving while hospitalized. Review of Systems Review of Systems: Per HPI Physical Exam Constitutional: NAD. Vitals WNL. Eyes: no conjunctival abnormality Respiratory: CTA bilaterally. No rhonchi, wheezing, or crackles. Non labored breathing. Cardiovascular: RRR. No murmur noted. Gastrointestinal (Abdomen): Nontender, +BS. No masses noted. Skin: no rashes, warm and dry (Healing wound on left leg at amputation site. Dressing dry and clean.) Psychiatric: Alert. Mood and affect congruent. Results & Data Results & Data ([facility]) Vital Signs (Past 12 Hours) Vital Signs Temp Pulse Resp BP Pulse Ox O2 Del Method 09/03/22 07:33 36.6 C 63 17 132/78 99 Room Air Resident Activity Tracking Resident Involvement: Resident Care Provided Care Provided: Adult Hospital Medicine
[2022-09-03] MEDS: ATORVASTATIN 40 MG TAB PO SCH (22:46)
[2022-09-04] MEDS: MENTHOL-ZINC OXIDE 360 APPLN/120 GM TUBE EXT SCH ×4 (00:03→21:10)
[2022-09-04] MEDS: PIPERACILLIN/TAZOBACTAM 3.375 GM in DEXTROSE 5% 100 ML IV SCH ×2 (00:03→09:01)
[2022-09-04] MEDS: BUTT PASTE (ZINC OXIDE 16%) 171 APPLN/57 GM JAR EXT SCH ×4 (00:03→21:09)
[2022-09-04] MEDS: LEVOTHYROXINE SODIUM 175 MCG TABLET PO SCH (04:50)
[2022-09-04] MEDS: LOPERAMIDE HCL 2 MG CAP PO PRN (05:05)
[2022-09-04 06:53] LABS: Basophils # (auto) 0.09 K/uL (0-0.2); Basophils % (auto) 1.1 %; Eosinophils # (auto) 0.96 K/uL (0-0.50); Eosinophils % (auto) 11.6 %; Hematocrit (blood only) 37.2 % (40.1-51.0); Hemoglobin 11.9 g/dl (14.0-18.0); Immature Granulocytes # (auto) 0.05 K/uL (0.00-0.02); Immature Granulocytes % (auto) 0.6 %; Lymphocytes # (auto) 2.05 K/uL (1.2-3.4); Lymphocytes % (auto) 24.7 %; Mean Corpuscular Hemoglobin 27.2 pg (25.0-34.0); Mean Corpuscular Volume 85.1 fL (80.0-100.0); Mean Platelet Volume 9.9 fL (9.4-12.4); Monocytes # (auto) 0.89 K/uL (0.24-0.82); Monocytes % (auto) 10.7 %; Neutrophils # (auto) 4.27 K/uL (1.4-6.5); Neutrophils % (auto) 51.3 %; Platelet Count 332 K/uL (130-400); RDW Coefficient of Variation 14.6 % (11.5-14.5); Red Blood Count 4.37 M/uL (4.63-6.08); White Blood Count 8.31 K/ul (4.8-10.8)
[2022-09-04 07:16] LABS: BUN Creatinine Ratio 36.6 (10-20); Calcium 8.8 mg/dl (8.5-10.1); Creatinine Clr Calc Pharmacy 76.1 ml/min; Est GFR (African American) 107.6 ml/min; Est GFR (Non-African American) 92.8 ml/min; Potassium 4.1 mmol/L (3.5-5.1)
--- NOTE | 2022-09-04 07:24 | Hospitalist Progress Note ---
Date of Service September 04, 2022 Assessment & Plan (1) Cellulitis: Plan: Pt is a 67 y/o male who presented to the hospital at recommendation from wound care clinic d/t poor wound healing of his left AKA. His PMH includes 1 diabetes mellitus, pressure ulcers, left AKA with poor wound healing and suspected dehiscence and superimposed cellulitis, anemia, CKD, past MRSA/VRE infection, peripheral artery disease, hypothyroidism, hypertension, dyslipidemia. Left AKA wound dehiscence with suspected cellulitis S/p left AKA 07/19/[address] Soto for delayed surgical wound healing or bleeding from left BKA Patient seen by wound care date of admission, was noted to have nonhealing surgical wound with suspected developing surrounding cellulitis Wound was debrided at wound care, was recommended for IV antibiotics and reevaluation for surgical debridement versus wound VAC by wound care, presented to ER for subsequent treatment - Followed by Dr. Soto, per his note- has recently performed some debridement and plan to proceed with wound vac over further surgical procedure. See orthopedics note for further detail. Patient with history of MRSA infection of the right heel 01/2022, Pseudomonas infection 05/02,VRE infection. - Wound cultures positive for pseudomonas, staph aureus; completed 10 day course of zosyn - no PO ABX necessary upon d/c as wound does not appear infected and is healing well - CM working on transportation and wound vac approval (most likely delayed d/t holiday) Pressure Ulcer of right BKA, Stage 3 - Per wound care Loose stools - Several episodes of loose stool per nursing, sent stool sample which was positive for c.diff gene PCR but negative for c.diff toxin- likely a carrier w/o active infection - Patient has daily episodes of bowel incontinence at baseline - Pt feels that increased stooling is d/t ABX use; anticipate improvement w/ discontinuation of zosyn today - Because c. diff infection unlikely, began loperamide PRN to avoid skin irritation/breakdown in addition to probiotic each morning Type 1 diabetes mellitus Last A1c 7.4% 05/2022, 6.8% this hospitalization Patient blood sugars in the 300s. concern of device malfunctioning. will not use patient's device at this time and switch to glucose checks with basal bolus insulin while inpatient. Patient should have device verified before discharge, and if any are inaccurate may need replacement Patient CGM reviewed. He is on a rate of 1.5 basal per hour, correction 1-30, carb ratio 1:8. - pt's insulin pump ran out of insulin last night; pt's daughter to bring in more insulin 09/04 - until then, pt will be given SSI CKD Baseline GFR 6089 Creatinine baseline less than 1 On chlorthalidone [employer], held Admitting creatinine 0.78, estimated GFR 94 - continue to monitor CAD S/p bypass 2015, history of aortic stenosis s/p porcine aortic valve replacement. No history of stents Continue aspirin and plavix Echo 11/2020 with EF 55 to 60% No recent symptoms of angina Continue metoprolol 12.5 mg BID Continue atorvastatin 80 mg qHS No chest pain/chest pressure Peripheral artery disease With history of iliac stent 2014 bilateral, right common/external iliac 2017, right common femoral endarterectomy 11/2018 with patch, left femoral to PT composite graft 06/30, left anterior tibial bypass 11/19/2021, left AKA as noted above Continue antiplatelets as above Hypothyroidism Continue Synthroid 175 mcg daily Hypertension Continue metoprolol Held chlorthalidone for relative hypotension - BP still within reasonable range, will restart if BP elevate Dyslipidemia continue atorvastatin 80 mg qHS (2) Surgical wound, non healing: (3) S/P above knee amputation: (4) Diabetes type 1, controlled: Plan DVT prophylaxis: Heparin 2/2 CKD Disposition: Medical/surgical, awaiting auth approval for home wound vac, home health services able to start 09/05 Diet: Type I DM, heart healthy CODE STATUS: Full code Admission and Anticipated Discharge Date Admission Date: August 24, 2022 Supervising Physician Co-Signing Physician Notes I personally examined the patient and verified all perez points of history and exam, discussed case, and agree with decision making with Dr Yap no acute complaints. awaiting insurance approval/home setup for wound vac. Vitals noted, in general he is awake and alert pleasant no distress. HEENT normocephalic atraumatic mucous membranes moist. Breathing unlabored no accessory muscle use good effort. Skin shows no rashes no pallor or icterus. wound images reviewed. Neuro without focal deficits. Stump woundimproving. can dc abx, continue wound vac. once wound vac set up for home, would be safe for dc with ongoing wound care and close outpt f/u DVT proph - heparin SQ otherwise as above Subjective Pt is a 67 y/o male who presented to the hospital at recommendation from wound care clinic d/t poor wound healing of his left AKA. His PMH includes 1 diabetes mellitus, pressure ulcers, left AKA with poor wound healing and suspected dehiscence and superimposed cellulitis, anemia, CKD, past MRSA/VRE infection, peripheral artery disease, hypothyroidism, hypertension, dyslipidemia. Pt seen at bedside this AM. He denies symptoms of chest pain, SOB, or pain. He explains that his daughter is bringing in more insulin for his pump today. He understands that we are waiting on authorization for the wound vac in order to get him home. Review of Systems Review of Systems: Per HPI Physical Exam Constitutional: NAD. Vitals WNL. Eyes: no conjunctival abnormality Respiratory: CTA bilaterally. No rhonchi, wheezing, or crackles. Non labored breathing. Cardiovascular: RRR. No murmur noted. Gastrointestinal (Abdomen): Nontender, +BS. No masses noted. Skin: no rashes, warm and dry Psychiatric: Alert. Mood and affect congruent. Results & Data Results & Data ([facility]) Vital Signs (Past 12 Hours) Vital Signs Temp Pulse Resp BP Pulse Ox O2 Del Method 09/03/22 21:15 36.6 C 68 18 157/83 H 95 Room Air Resident Activity Tracking Resident Involvement: Resident Care Provided Care Provided: Adult Hospital Medicine
[2022-09-04] MEDS: INSULIN ASPART PER UNIT SC SCH ×4 (08:54→21:38)
[2022-09-04] MEDS: METOPROLOL TARTRATE 25 MG TAB PO SCH ×2 (08:56→21:00)
[2022-09-04] MEDS: PANTOprazole 40 MG TAB PO SCH (08:57)
[2022-09-04] MEDS: ASPIRIN 81 MG ECTAB PO SCH (08:57)
[2022-09-04] MEDS: CLOPIDOGREL BISULFATE 75 MG TAB PO SCH (08:57)
[2022-09-04] MEDS: FERROUS SULFATE 325 MG TAB PO SCH ×2 (08:58→21:00)
[2022-09-04] MEDS: ADVANCED PROBIOTIC 1250 MG CAPSULE PO SCH (08:58)
[2022-09-04] MEDS: HEPARIN SOD 5,000 UNIT/0.5 ML VIAL SQ SCH ×2 (08:58→21:00)
[2022-09-04] MEDS ORDERED: LANTUS PER UNIT CHARGE SQ SCH (14:00)
--- NOTE | 2022-09-04 16:06 | Billing Data ---
Date of Service September 04, 2022 Coding Level of Care Code 47950 Subseq Hosp Care Lvl 3
[2022-09-04] MEDS: ATORVASTATIN 40 MG TAB PO SCH (21:00)
[2022-09-05] MEDS: LEVOTHYROXINE SODIUM 175 MCG TABLET PO SCH (05:33)
[2022-09-05 06:23] LABS: Basophils # (auto) 0.08 K/uL (0-0.2); Basophils % (auto) 0.8 %; Eosinophils # (auto) 0.91 K/uL (0-0.50); Eosinophils % (auto) 9.1 %; Hematocrit (blood only) 35.4 % (40.1-51.0); Hemoglobin 11.5 g/dl (14.0-18.0); Immature Granulocytes # (auto) 0.05 K/uL (0.00-0.02); Immature Granulocytes % (auto) 0.5 %; Mean Corpuscular Hemoglobin 27.2 pg (25.0-34.0); Mean Corpuscular Hgb Conc 32.5 g/dL (32.0-36.0); Mean Corpuscular Volume 83.7 fL (80.0-100.0); Mean Platelet Volume 10.1 fL (9.4-12.4); Monocytes # (auto) 0.97 K/uL (0.24-0.82); Monocytes % (auto) 9.7 %; Neutrophils # (auto) 5.68 K/uL (1.4-6.5); Neutrophils % (auto) 56.9 %; Platelet Count 343 K/uL (130-400); RDW Coefficient of Variation 14.6 % (11.5-14.5); RDW Standard Deviation 44.3 fL (36.4-46.3); Red Blood Count 4.23 M/uL (4.63-6.08); White Blood Count 9.99 K/ul (4.8-10.8)
[2022-09-05 06:56] LABS: BUN Creatinine Ratio 38.4 (10-20); Calcium 8.8 mg/dl (8.5-10.1); Creatinine Clr Calc Pharmacy 72.5 ml/min; Est GFR (African American) 105.5 ml/min; Potassium 4.2 mmol/L (3.5-5.1)
--- NOTE | 2022-09-05 07:12 | Hospitalist Progress Note ---
Date of Service September 05, 2022 Assessment & Plan (1) Cellulitis: Plan: Pt is a 67 y/o male with a PMHx significant for TIDM, pressure ulcers, history of poor healing, anemia, CKD, past MRSA/VRE infection, PAD, hypothyroidism, HTN, HLD who presented here after recommendation from wound care clinic d/t poor wound healing of recent left AKA admitted for suspected dehiscence and superimposed cellulitis now completed 10 days course of abx and awaiting wound vac approval and transport. Left AKA wound dehiscence with suspected cellulitis S/p left AKA 07/19/[address] Talavera for delayed surgical wound healing or bleeding from left BKA. Patient seen by wound care date of admission, was noted to have nonhealing surgical wound with suspected developing surrounding cellulitis. Wound was debrided at wound care - admission for IV abx and surgical reeval was recommended. Consider surgical debridement vs wound VAC. Dr. Soto recently debrided the area and recommended wound vac over further sx treatment. For more information see ortho note. Discussion with Dr. Soto 09/05 - he recommends continued wound vac with home health for assistance in care for the wound vac, weekly wound clinic visits, and follow up with ortho. Patient has hx of MRSA infection 01/30, psuedomonas 05/02, VRE. Wound cultures grew pseudomonas and staph aures. Patient completed 10 day course of Zosyn with significant clinical improvement. Now awaiting transportation and wound vac approval. Discussed with CM 09/05. Pressure Ulcer of right BKA, Stage 3 Per wound care Loose stools Several episodes of loose stool per nursing, sent stool sample which was positive for c. dif gene PCR but negative for c. dif toxin- likely a carrier w/o active infection. Patient has daily episodes of bowel incontinence at baseline. Because c. diff infection unlikely, began loperamide PRN to avoid skin irritation/breakdown in addition to probiotic each morning Type 1 diabetes mellitus Last A1c 7.4% 05/2022, 6.8% this hospitalization. Patient using home insulin pump now since daughter brought in more insulin. Will be discharged on home dosing of insulin. CKD Baseline GFR 6089. Creatinine baseline less than 1. 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 GFR monitored during the course of hospital stay CAD S/p bypass 2015, history of aortic stenosis s/p porcine aortic valve replacement.No history of stents. ASA and plavix. Last ECHO EF 55-60%. Metoprolol 12.5 BID. Atorvastatin 80 mg qHS. Peripheral artery disease With history of iliac stent 2014 bilateral, right common/external iliac 2017, right common femoral endarterectomy 11/2018 with patch, left femoral to PT composite graft 06/30, left anterior tibial bypass 11/19/2021, left AKA as noted above. Continue antiplatelets as above Hypothyroidism Continue Synthroid 175 mcg daily Hypertension Continue metoprolol. Held chlorthalidone for relative hypotension. BP still within reasonable range, will restart if BP elevate Dyslipidemia Continue atorvastatin 80 mg qHS DVT prophylaxis: Heparin / CKD Disposition: Medical/surgical, awaiting auth approval for home wound vac, home health services able to start 09/05 Diet: Type I DM, heart healthy CODE STATUS: Full code (2) Surgical wound, non healing: (3) S/P above knee amputation: (4) Diabetes type 1, controlled: Admission and Anticipated Discharge Date Admission Date: August 24, 2022 Supervising Physician Co-Signing Physician Notes Patient seen and examined independently of PGY-1 Dr. Rm. Agree with history, exam findings, assessment, and plan of care as outlined. In brief, Mr. Chowdhury is a 67-year-old male with hx of DM, prior left AKA, CKD, PAD, HTN admitted with infection of the left AKA wound. VS and nursing notes reviewed. Well appearing. Heart with regular rate and rhythm. Lungs are clear to auscultation. Labs and imaging reviewed. 1. Left AKA wound dehiscence with suspected cellulitis. Wound cultures positive for staph and pseudomonas. S/p 10 days of zosyn. Awaiting approval for wound vac. He is set up with the wound clinic. 2. 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 Negative c. diff toxin in the setting of loose stools and recent antibiotics. Started loperamide. 3. DM1. Basal bolus insulin. Transition back to home pump. 4. PAD. Continue ASA and Plavix, atorvastatin 80mg. Continue home metoprolol 12.5mg BID. Dispo: home with home healthhopeful for tomorrow once we know the wound vac is approved. Subjective Pt seen at bedside this AM. He reports that he is feeling well and ready to go home pending authorization. No complaints. Review of Systems Review of Systems: Per HPI Physical Exam Constitutional: WD/WN, vitals as above Eyes: no conjunctival abnormality Respiratory: normal respiratory effort, lungs clear to auscultation Cardiovascular: RRR, no murmur, no edema Musculoskeletal: wound vac in place left leg, no erythema or purulent discharge, wound c/d/i Skin: no rashes, warm and dry Psychiatric: A+Ox3, euthymic affect Results & Data Results & Data ([facility]) Vital Signs (Past 12 Hours) Vital Signs Temp Pulse Pulse Resp BP Pulse Ox O2 Del Method 09/05/22 05:34 36.8 C 66 18 150/77 H 96 Room Air 09/04/22 21:40 Room Air 09/04/22 20:47 36.8 C 64 16 128/78 98 Room Air Laboratory Results 09/05/22 09/05/22 09/04/22 Range/Units 05:47 05:47 20:47 WBC 9.99 (4.8-10.8) K/ul RBC 4.23 L (4.63-6.08) M/uL Hgb 11.5 L (14.0-18.0) g/dl Hct 35.4 L (40.1-51.0) % MCV 83.7 (80.0-100.0) fL MCH 27.2 (25.0-34.0) pg MCHC 32.5 (32.0-36.0) g/dL RDW Std Deviation 44.3 (36.4-46.3) fL RDW Coeff of Chan 14.6 H (11.5-14.5) % Plt Count 343 (130-400) K/uL MPV 10.1 (9.4-12.4) fL Immature Gran % (Auto) 0.5 % Neut % (Auto) 56.9 % Lymph % (Auto) 23.0 % [place] % (Auto) 9.7 % Eos % (Auto) 9.1 % Baso % (Auto) 0.8 % Neut # (Auto) 5.68 (1.4-6.5) K/uL Lymph # (Auto) 2.30 (1.2-3.4) K/uL [place] # (Auto) 0.97 H (0.24-0.82) K/uL Eos # (Auto) 0.91 H (0-0.50) K/uL Baso # (Auto) 0.08 (0-0.2) K/uL Immature Gran # (Auto) 0.05 H (0.00-0.02) K/uL Sodium 136 (136-145) mmol/L Potassium 4.2 (3.5-5.1) mmol/L Chloride 102 (98-107) mmol/L Carbon Dioxide 29 (21-32) mmol/L Anion Gap 5 (3-11) BUN 33 H (6-23) mg/dl Creatinine 0.86 (0.6-1.4) mg/dl Est Cr Clr Drug Dosing 72.5 ml/min Est GFR ( Amer) 105.5 ml/min Est GFR (Non-Af Amer) 91.0 ml/min BUN/Creatinine Ratio 38.4 H (10-20) Glucose 244 H (70-99(Fasting)) mg/dl POC Glucose 134 H (70-99) mg/dl Calcium 8.8 (8.5-10.1) mg/dl 09/04/22 09/04/22 09/04/22 Range/Units 16:49 12:08 12:06 WBC (4.8-10.8) K/ul RBC (4.63-6.08) M/uL Hgb (14.0-18.0) g/dl Hct (40.1-51.0) % MCV (80.0-100.0) fL MCH (25.0-34.0) pg MCHC (32.0-36.0) g/dL RDW Std Deviation (36.4-46.3) fL RDW Coeff of Chan (11.5-14.5) % Plt Count (130-400) K/uL MPV (9.4-12.4) fL Immature Gran % (Auto) % Neut % (Auto) % Lymph % (Auto) % [place] % (Auto) % Eos % (Auto) % Baso % (Auto) % Neut # (Auto) (1.4-6.5) K/uL Lymph # (Auto) (1.2-3.4) K/uL [place] # (Auto) (0.24-0.82) K/uL Eos # (Auto) (0-0.50) K/uL Baso # (Auto) (0-0.2) K/uL Immature Gran # (Auto) (0.00-0.02) K/uL Sodium (136-145) mmol/L Potassium (3.5-5.1) mmol/L Chloride (98-107) mmol/L Carbon Dioxide (21-32) mmol/L Anion Gap (3-11) BUN (6-23) mg/dl Creatinine (0.6-1.4) mg/dl Est Cr Clr Drug Dosing ml/min Est GFR ( Amer) ml/min Est GFR (Non-Af Amer) ml/min BUN/Creatinine Ratio (10-20) Glucose (70-99(Fasting)) mg/dl POC Glucose 252 H 362 H* 356 H* (70-99) mg/dl Calcium (8.5-10.1) mg/dl 09/04/22 09/04/22 09/04/22 Range/Units 12:05 08:04 08:03 WBC (4.8-10.8) K/ul RBC (4.63-6.08) M/uL Hgb (14.0-18.0) g/dl Hct (40.1-51.0) % MCV (80.0-100.0) fL MCH (25.0-34.0) pg MCHC (32.0-36.0) g/dL RDW Std Deviation (36.4-46.3) fL RDW Coeff of Chan (11.5-14.5) % Plt Count (130-400) K/uL MPV (9.4-12.4) fL Immature Gran % (Auto) % Neut % (Auto) % Lymph % (Auto) % [place] % (Auto) % Eos % (Auto) % Baso % (Auto) % Neut # (Auto) (1.4-6.5) K/uL Lymph # (Auto) (1.2-3.4) K/uL [place] # (Auto) (0.24-0.82) K/uL Eos # (Auto) (0-0.50) K/uL Baso # (Auto) (0-0.2) K/uL Immature Gran # (Auto) (0.00-0.02) K/uL Sodium (136-145) mmol/L Potassium (3.5-5.1) mmol/L Chloride (98-107) mmol/L Carbon Dioxide (21-32) mmol/L Anion Gap (3-11) BUN (6-23) mg/dl Creatinine (0.6-1.4) mg/dl Est Cr Clr Drug Dosing ml/min Est GFR ( Amer) ml/min Est GFR (Non-Af Amer) ml/min BUN/Creatinine Ratio (10-20) Glucose (70-99(Fasting)) mg/dl POC Glucose 415 H* 296 H 322 H* (70-99) mg/dl Calcium (8.5-10.1) mg/dl 09/04/22 Range/Units 06:12 WBC (4.8-10.8) K/ul RBC (4.63-6.08) M/uL Hgb (14.0-18.0) g/dl Hct (40.1-51.0) % MCV (80.0-100.0) fL MCH (25.0-34.0) pg MCHC (32.0-36.0) g/dL RDW Std Deviation (36.4-46.3) fL RDW Coeff of Chan (11.5-14.5) % Plt Count (130-400) K/uL MPV (9.4-12.4) fL Immature Gran % (Auto) % Neut % (Auto) % Lymph % (Auto) % [place] % (Auto) % Eos % (Auto) % Baso % (Auto) % Neut # (Auto) (1.4-6.5) K/uL Lymph # (Auto) (1.2-3.4) K/uL [place] # (Auto) (0.24-0.82) K/uL Eos # (Auto) (0-0.50) K/uL Baso # (Auto) (0-0.2) K/uL Immature Gran # (Auto) (0.00-0.02) K/uL Sodium 136 (136-145) mmol/L Potassium 4.1 (3.5-5.1) mmol/L Chloride 104 (98-107) mmol/L Carbon Dioxide 25 (21-32) mmol/L Anion Gap 7 (3-11) BUN 30 H (6-23) mg/dl Creatinine 0.82 (0.6-1.4) mg/dl Est Cr Clr Drug Dosing 76.1 ml/min Est GFR ( Amer) 107.6 ml/min Est GFR (Non-Af Amer) 92.8 ml/min BUN/Creatinine Ratio 36.6 H (10-20) Glucose 248 H (70-99(Fasting)) mg/dl POC Glucose (70-99) mg/dl Calcium 8.8 (8.5-10.1) mg/dl Resident Activity Tracking Resident Involvement: Resident Care Provided Care Provided: Adult [facility] Medicine
[2022-09-05] MEDS: LOPERAMIDE HCL 2 MG CAP PO PRN (07:39)
[2022-09-05] MEDS: MENTHOL-ZINC OXIDE 360 APPLN/120 GM TUBE EXT SCH ×3 (08:52→20:54)
[2022-09-05] MEDS: BUTT PASTE (ZINC OXIDE 16%) 171 APPLN/57 GM JAR EXT SCH ×3 (08:52→20:55)
[2022-09-05] MEDS: METOPROLOL TARTRATE 25 MG TAB PO SCH ×2 (08:53→20:50)
[2022-09-05] MEDS: HEPARIN SOD 5,000 UNIT/0.5 ML VIAL SQ SCH ×2 (08:53→20:51)
[2022-09-05] MEDS: CLOPIDOGREL BISULFATE 75 MG TAB PO SCH (08:54)
[2022-09-05] MEDS: ASPIRIN 81 MG ECTAB PO SCH (08:54)
[2022-09-05] MEDS: FERROUS SULFATE 325 MG TAB PO SCH ×2 (08:54→20:51)
[2022-09-05] MEDS: ADVANCED PROBIOTIC 1250 MG CAPSULE PO SCH (08:55)
[2022-09-05] MEDS: PANTOprazole 40 MG TAB PO SCH (08:55)
[2022-09-05] MEDS ORDERED: LANTUS PER UNIT CHARGE SQ SCH (09:00)
[2022-09-05] MEDS: INSULIN, Rapid-Acting PUMP SCH ×4 (09:00→20:54)
--- NOTE | 2022-09-05 09:05 | Billing Data ---
Date of Service September 02, 2022 Coding Level of Care Code 79751 Subseq Hosp Care Lvl 2
--- NOTE | 2022-09-05 09:05 | Billing Data ---
Date of Service September 03, 2022 Coding Level of Care Code 01558 Subseq Hosp Care Lvl 2
--- NOTE | 2022-09-05 09:06 | Billing Data ---
Date of Service September 01, 2022 Coding Level of Care Code 16989 Subseq Hosp Care Lvl 3 Time Spent (min) 35
--- NOTE | 2022-09-05 10:12 | Progress Notes ---
DATE OF SERVICE: 09/05/2022 Mr. Chowdhury is resting comfortably in bed. No issues are noted. He is afebrile. His vital signs are s table. His antibiotics have been discontinued. On examination, the wound VAC is removed. The skin folds posteriorly are looking good with the Aquacel Ag in. The wounds are granulating well with minim al fibrinous exudate and essentially no necrotic tissue. They are still about a centimeter in depth, but have no undermining and excellent granulation. There are a couple other spots along the incisio n with some eschar that are slowly healing and improving with Aquacel Ag. The wound care nurses are not in today, so I went ahead and removed the VAC and reapplied a wet-to-dry dressing change along th some Aquacel Ag. This will be changed daily by the nursing until the wound VAC can be reapplied i n Monday or Monday. We will be looking for VAC approval and discharged home. He will need to be seen in the wound care c alcides at [facility] once a week and then have home VAC changes after that and see me periodically to monitor the wound. Job ID: [id number]
[2022-09-05] MEDS: ATORVASTATIN 40 MG TAB PO SCH (20:51)
[2022-09-06] MEDS: LEVOTHYROXINE SODIUM 175 MCG TABLET PO SCH (06:00)
[2022-09-06 06:59] LABS: Basophils % (auto) 1.1 %; Eosinophils # (auto) 0.91 K/uL (0-0.50); Eosinophils % (auto) 10.2 %; Hematocrit (blood only) 35.2 % (40.1-51.0); Hemoglobin 11.5 g/dl (14.0-18.0); Immature Granulocytes # (auto) 0.05 K/uL (0.00-0.02); Immature Granulocytes % (auto) 0.6 %; Lymphocytes # (auto) 2.16 K/uL (1.2-3.4); Lymphocytes % (auto) 24.3 %; Mean Corpuscular Hemoglobin 27.4 pg (25.0-34.0); Mean Corpuscular Hgb Conc 32.7 g/dL (32.0-36.0); Mean Corpuscular Volume 83.8 fL (80.0-100.0); Mean Platelet Volume 9.7 fL (9.4-12.4); Monocytes # (auto) 0.98 K/uL (0.24-0.82); Neutrophils # (auto) 4.68 K/uL (1.4-6.5); Neutrophils % (auto) 52.8 %; Platelet Count 332 K/uL (130-400); RDW Coefficient of Variation 14.9 % (11.5-14.5); White Blood Count 8.88 K/ul (4.8-10.8)
--- NOTE | 2022-09-06 07:13 | Hospitalist Progress Note ---
Date of Service September 06, 2022 Assessment & Plan (1) Cellulitis: Plan: Pt is a 67 y/o male with a PMHx significant for TIDM, pressure ulcers, history of poor healing, anemia, CKD, past MRSA/VRE infection, PAD, hypothyroidism, HTN, HLD who presented here after recommendation from wound care clinic d/t poor wound healing of recent left AKA admitted for suspected dehiscence and superimposed cellulitis now completed 10 days course of abx and awaiting wound vac approval and transport. Left AKA wound dehiscence with suspected cellulitis S/p left AKA 07/19/[address] Talavera for delayed surgical wound healing or bleeding from left BKA. Patient seen by wound care date of admission, was noted to have nonhealing surgical wound with suspected developing surrounding cellulitis. Wound was debrided at wound care - admission for IV abx and surgical reeval was recommended. Consider surgical debridement vs wound VAC. Dr. Soto recently debrided the area and recommended wound vac over further sx treatment. For more information see ortho note. Discussion with Dr. Soto 09/05 - he recommends continued wound vac with home health for assistance in care for the wound vac, weekly wound clinic visits, and follow up with ortho. Patient has hx of MRSA infection 01/30, psuedomonas 05/02, VRE. Wound cultures grew pseudomonas and staph aures. Patient completed 10 day course of Zosyn with significant clinical improvement. Now awaiting transportation and wound vac approval. Discussed with CM 09/05. Pressure Ulcer of right BKA, Stage 3 Per wound care Loose stools Several episodes of loose stool per nursing, sent stool sample which was positive for c. dif gene PCR but negative for c. dif toxin- likely a carrier w/o active infection. Patient has daily episodes of bowel incontinence at baseline. Because c. diff infection unlikely, began loperamide PRN to avoid skin irritation/breakdown in addition to probiotic each morning Type 1 diabetes mellitus Last A1c 7.4% 05/2022, 6.8% this hospitalization. Patient using home insulin pump now since daughter brought in more insulin. Will be discharged on home dosing of insulin. CKD Baseline GFR 6089. Creatinine baseline less than 1. 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 GFR monitored during the course of hospital stay CAD S/p bypass 2015, history of aortic stenosis s/p porcine aortic valve replacement.No history of stents. ASA and plavix. Last ECHO EF 55-60%. Metoprolol 12.5 BID. Atorvastatin 80 mg qHS. Peripheral artery disease With history of iliac stent 2014 bilateral, right common/external iliac 2017, right common femoral endarterectomy 11/2018 with patch, left femoral to PT composite graft 06/30, left anterior tibial bypass 11/19/2021, left AKA as noted above. Continue antiplatelets as above Hypothyroidism Continue Synthroid 175 mcg daily Hypertension Continue metoprolol. Held chlorthalidone for relative hypotension. BP still within reasonable range, will restart if BP elevate Dyslipidemia Continue atorvastatin 80 mg qHS DVT prophylaxis: Heparin / CKD Disposition: Medical/surgical, awaiting auth approval for home wound vac, home health services able to start 09/05 Diet: Type I DM, heart healthy CODE STATUS: Full code (2) Surgical wound, non healing: (3) S/P above knee amputation: (4) Diabetes type 1, controlled: Admission and Anticipated Discharge Date Admission Date: August 24, 2022 Subjective Pt seen at bedside this AM. He reports that he is feeling well and ready to go home pending authorization. No complaints. Review of Systems Review of Systems: Per HPI Physical Exam Constitutional: WD/WN, vitals as above Eyes: no conjunctival abnormality Respiratory: normal respiratory effort, lungs clear to auscultation Cardiovascular: RRR, no murmur, no edema Skin: no rashes, warm and dry Psychiatric: A+Ox3, euthymic affect Results & Data Results & Data ([facility]) Vital Signs (Past 12 Hours) Vital Signs Temp Pulse Resp BP Pulse Ox O2 Del Method 09/05/22 20:45 36.7 C 73 18 122/71 97 Room Air
[2022-09-06 07:18] LABS: BUN Creatinine Ratio 39.3 (10-20); Calcium 9.4 mg/dl (8.5-10.1); Creatinine Clr Calc Pharmacy 70.1 ml/min; Est GFR (Non-African American) 89.7 ml/min; Potassium 4.6 mmol/L (3.5-5.1)
[2022-09-06] MEDS: ASPIRIN 81 MG ECTAB PO SCH (08:57)
[2022-09-06] MEDS: ADVANCED PROBIOTIC 1250 MG CAPSULE PO SCH (08:57)
[2022-09-06] MEDS: METOPROLOL TARTRATE 25 MG TAB PO SCH (08:57)
[2022-09-06] MEDS: FERROUS SULFATE 325 MG TAB PO SCH (08:57)
[2022-09-06] MEDS: PANTOprazole 40 MG TAB PO SCH (08:57)
[2022-09-06] MEDS: HEPARIN SOD 5,000 UNIT/0.5 ML VIAL SQ SCH (08:58)
[2022-09-06] MEDS: CLOPIDOGREL BISULFATE 75 MG TAB PO SCH (08:58)
[2022-09-06] MEDS: BUTT PASTE (ZINC OXIDE 16%) 171 APPLN/57 GM JAR EXT SCH (08:59)
[2022-09-06] MEDS: INSULIN, Rapid-Acting PUMP SCH (09:00)
[2022-09-06] MEDS: MENTHOL-ZINC OXIDE 360 APPLN/120 GM TUBE EXT SCH (09:00)
--- NOTE | 2022-09-06 10:28 | Discharge Summary ---
Date of Service September 06, 2022 Admission HPI Per Admitting Provider Ron chowdhury is a 67yo M past medical history of type 1 diabetes mellitus, pressure ulcers, left AKA with poor wound healing and suspected dehiscence and superimposed cellulitis, anemia, CKD, past MRSA/VRE infection, peripheral artery disease, hypothyroidism, hypertension, dyslipidemia who presents on recommendation from wound clinic after debridement yesterday of his AKA site for continued progressive erythema and poor healing with suspected superimposed cellulitis. Patient is seen at bedside, sister present. She notes that his glucose monitor does not seem to be accurate as differed from physician monitors and thinks this may be malfunctioning. Patient reports that he has not any fever, chills, sweats, shortness of breath, difficulty breathing, chest pain. Does have a right BKA which is doing well, with a small pressure ulcer at his prosthesis site. He notes his left AKA amputation has been doing poorly, is tender along the surgical site, with bleeding and discharge. Surrounding erythema is pr esent. He reports he has been seen in wound care and had a debridement yesterday, and on follow-up today there is concern for spreading erythema. He notes his blood sugars have also been elevated in the 300s, and that his CGM has been inconsistent with measurements taken at bedside. He is on a 1.5 basal rate, correction factor of 1-30, and ratio of 1:8. Referred from wound care for concern of wound infection of AKA Jul 19. Suspect wound dehiscence, was seen by Dr. Soto yesterday for debridement. Hx VRE. Medical History: Reviewed Medications: Reviewed Surgical History: Reviewed Allergies: Reviewed Social History: Reviewed Code Status: Full code Admission Exam Per Admitting Provider General: A&Ox3. NAD. Cooperative. HEENT: Atraumatic, normocephalic. Pulm: CTAB A&P. -wheezes, -rales, -rhonchi. Symmetrical chest rise. No increase in work of breathing. No respiratory distress. Cardiac: RRR, -mrg. Radial pulses intact and symmetrical. Abdominal: Nontender, nondistended, soft. BS present. Extremities: Right BKA with stage III pressure ulcer prosthetic site anteriorly, no signs of infection including warmth/erythema/tenderness left AKA with central dehiscence, mild surrounding erythema, clear/yellowish discharge without purulence. Nontender. Cap refill is intact. Principal Diagnosis Poor wound healing with superimposed cellulitis Discharge Exam Constitutional WD/WN, vitals as above Eyes no conjunctival abnormality Respiratory normal respiratory effort, lungs clear to auscultation Cardiovascular RRR, no murmur, no edema Skin no rashes, warm and dry dressing c/d/i, no erythema, no purulent discharge, no strike through Psychiatric A+Ox3, euthymic affect Discharge Data Allergies Allergy/AdvReac Type Severity Reaction Status Date / Time No Known Allergies Allergy Unknown Verified 08/23/22 20:14 Consultations 08/23/22 18:18 ED Decision to Admit Stat 08/23/22 23:57 Consult Orthopedic Surgery Routine Ordered Studies 09/06/22 09/06/22 09/06/22 Range/Units 08:32 06:37 06:37 WBC 8.88 (4.8-10.8) K/ul RBC 4.20 L (4.63-6.08) M/uL Hgb 11.5 L (14.0-18.0) g/dl Hct 35.2 L (40.1-51.0) % MCV 83.8 (80.0-100.0) fL MCH 27.4 (25.0-34.0) pg MCHC 32.7 (32.0-36.0) g/dL RDW Std Deviation 45.0 (36.4-46.3) fL RDW Coeff of Chan 14.9 H (11.5-14.5) % Plt Count 332 (130-400) K/uL MPV 9.7 (9.4-12.4) fL Immature Gran % (Auto) 0.6 % Neut % (Auto) 52.8 % Lymph % (Auto) 24.3 % [place] % (Auto) 11.0 % Eos % (Auto) 10.2 % Baso % (Auto) 1.1 % Neut # (Auto) 4.68 (1.4-6.5) K/uL Lymph # (Auto) 2.16 (1.2-3.4) K/uL [place] # (Auto) 0.98 H (0.24-0.82) K/uL Eos # (Auto) 0.91 H (0-0.50) K/uL Baso # (Auto) 0.10 (0-0.2) K/uL Immature Gran # (Auto) 0.05 H (0.00-0.02) K/uL Sodium 140 (136-145) mmol/L Potassium 4.6 (3.5-5.1) mmol/L Chloride 104 (98-107) mmol/L Carbon Dioxide 31 (21-32) mmol/L Anion Gap 5 (3-11) BUN 35 H (6-23) mg/dl Creatinine 0.89 (0.6-1.4) mg/dl Est Cr Clr Drug Dosing 70.1 ml/min Est GFR ( Amer) 104.0 ml/min Est GFR (Non-Af Amer) 89.7 ml/min BUN/Creatinine Ratio 39.3 H (10-20) Glucose 115 H (70-99(Fasting)) mg/dl POC Glucose 96 (70-99) mg/dl Calcium 9.4 (8.5-10.1) mg/dl 09/05/22 09/05/22 09/05/22 Range/Units 20:41 17:21 12:08 WBC (4.8-10.8) K/ul RBC (4.63-6.08) M/uL Hgb (14.0-18.0) g/dl Hct (40.1-51.0) % MCV (80.0-100.0) fL MCH (25.0-34.0) pg MCHC (32.0-36.0) g/dL RDW Std Deviation (36.4-46.3) fL RDW Coeff of Chan (11.5-14.5) % Plt Count (130-400) K/uL MPV (9.4-12.4) fL Immature Gran % (Auto) % Neut % (Auto) % Lymph % (Auto) % [place] % (Auto) % Eos % (Auto) % Baso % (Auto) % Neut # (Auto) (1.4-6.5) K/uL Lymph # (Auto) (1.2-3.4) K/uL [place] # (Auto) (0.24-0.82) K/uL Eos # (Auto) (0-0.50) K/uL Baso # (Auto) (0-0.2) K/uL Immature Gran # (Auto) (0.00-0.02) K/uL Sodium (136-145) mmol/L Potassium (3.5-5.1) mmol/L Chloride (98-107) mmol/L Carbon Dioxide (21-32) mmol/L Anion Gap (3-11) BUN (6-23) mg/dl Creatinine (0.6-1.4) mg/dl Est Cr Clr Drug Dosing ml/min Est GFR ( Amer) ml/min Est GFR (Non-Af Amer) ml/min BUN/Creatinine Ratio (10-20) Glucose (70-99(Fasting)) mg/dl POC Glucose 126 H 271 H 294 H (70-99) mg/dl Calcium (8.5-10.1) mg/dl Femur X-Ray 08/23/22 18:18 XR femur LT 2V routine HISTORY: 67 years-old Male stump infection reported soft tissue infection of the left lower extremity with prior [id number] amputation COMPARISON: Fluoroscopic images of the left knee 07/19/2022 TECHNIQUE: 2 views of the left femur FINDINGS: Arterial stent grafts in the left thigh redemonstrated along with arterial calcifications. Moderate left hip osteoarthritis. Postoperative changes from above the left knee amputation. Soft tissue swelling of the amputation stump. There is mild cortical irregularity of the distal femoral diaphysis at the amputation site. IMPRESSION: Prior [id number]-[id number]-bixy amputation of the distal femur. There is subtle cortical irregularity of the distal femur at the amputation site which may be postoperative or represent developing osteomyelitis. ACT 112: Negative or not required by law. The above report was generated using voice recognition software. It may contain grammatical, syntax or spelling errors. Electronically signed by: Alberto Armstrong M.D. 08/23/2022 7:07 PM Hospital Course (1) Cellulitis: Pt is a 67 y/o male with a PMHx significant for TIDM, pressure ulcers, history of poor healing, anemia, CKD, past MRSA/VRE infection, PAD, hypothyroidism, HTN, HLD who presented here after recommendation from wound care clinic d/t poor wound healing of recent left AKA admitted for suspected dehiscence and superimposed cellulitis now completed 10 days course of abx and awaiting wound vac approval and transport. Left AKA wound dehiscence with suspected cellulitis S/p left AKA 07/19/[address] Talavera for delayed surgical wound healing or bleeding from left BKA. Patient seen by wound care date of admission, was noted to have nonhealing surgical wound with suspected developing surrounding cellulitis. Wound was debrided at wound care - admission for IV abx and surgical reeval was recommended. Consider surgical debridement vs wound VAC. Dr. Soto recently debrided the area and recommended wound vac over further sx treatment. For more information see ortho note. Discussion with Dr. Soto 09/05 - he recommends continued wound vac with home health for assistance in care for the wound vac, weekly wound clinic visits, and follow up with ortho. Patient has hx of MRSA infection 01/30, pseudomonas 05/02, VRE. Wound cultures grew pseudomonas and staph aures. Patient completed 10 day course of Zosyn with significant clinical improvement. Now awaiting transportation and wound vac approval. Pressure Ulcer of right BKA, Stage 3 Per wound care Loose stools Several episodes of loose stool per nursing, sent stool sample which was positive for c. dif gene PCR but negative for c. dif toxin- likely a carrier w/o active infection. Patient has daily episodes of bowel incontinence at baseline. Because c. diff infection unlikely, began loperamide PRN to avoid skin irr itation/breakdown in addition to probiotic each morning Type 1 diabetes mellitus Last A1c 7.4% 05/2022, 6.8% this hospitalization. Patient using home insulin pump now since daughter brought in more insulin. Will be discharged on home dosing of insulin. CKD Baseline GFR 6089. Creatinine baseline less than 1. On chlorthalidone BROACHER, held. GFR monitored during the course of hospital stay CAD S/p bypass 2015, history of aortic stenosis s/p porcine aortic valve replacement.No history of stents. ASA and plavix. Last ECHO EF 55-60%. Metoprolol 12.5 BID. Atorvastatin 80 mg qHS. Peripheral artery disease With history of iliac stent 2014 bilateral, right common/external iliac 2017, right common femoral endarterectomy 11/2018 with patch, left femoral to PT composite graft 06/30, left anterior tibial bypass 11/19/2021, left AKA as noted above. Continue antiplatelets as above Hypothyroidism Continue Synthroid 175 mcg daily Hypertension Continue metoprolol. Held chlorthalidone for relative hypotension. BP still within reasonable range, will restart if BP elevate Dyslipidemia Continue atorvastatin 80 mg qHS DVT prophylaxis: Heparin 2/2 CKD Disposition: Medical/surgical, awaiting auth approval for home wound vac Diet: Type I DM, heart healthy CODE STATUS: Full code (2) Surgical wound, non healing: (3) S/P above knee amputation: (4) Diabetes type 1, controlled: Total Time Total Time Spent Total Time Spent (In Minutes): See attending attestation Discharge Plan Discharge Items Patient Disposition: Home - Home Health Services Reason For Visit: CELLULITIS, AKA POOR HEALING Discharge Diagnosis: Delayed wound healing left lower extremity, s/p below knee amputation Activity: Per Instructions section Non-emergency contact: Surgeon Call non-emergency contact if: you have any medication questions, your symptoms worsen, your temperature is above 101, your wound has increased redness and your wound has increased drainage Follow-up/Referrals: Xander Soto MD [Surgeon] - 09/12/22 3:30 pm Jeremias Morton, DO [Primary Care Provider] - Diet: Carb Count or DM1 Addtl Attending Provider Instructions: cj Velasquez presented to the ER at recommendation from wound care clinic for concerns of wound dehiscence of left AKA wound. Since your hospital admission, you were treated by Dr. Soto who has been monitoring your wound healing and debriding as necessary. A wound culture was taken which was positive for the bacteria pseudomonas and staph aureus. You were originally started on daptomycin and zosyn for antibiotics, but after the wound culture you were kept on just the zosyn for a total of a 10 day course. Over the span of your stay, the wound has made steady progress with the irrigating wound vac and now the portable wound vac. While you were admitted, given your episodes of loose stool and history of c.diff, we sent a sample to evaluate for c.diff. It was negative for the toxin causing the c.diff infection but positive for the c.diff gene which likely means you are a "carrier" but do not need to be treated. You are being discharged home with home health who will assist with your wound vac care. You will also be following up with Dr. Soto on 09/12/2022 for an appointment. No further antibiotics are necessary at this time. 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 Have your wound vac changed by home health nursing or outpatient wound care clinic. Call Dr. Soto's office At [phone] with any increased pain, swelling, drainage, issues with the wound VAC, fevers or chills. Elevate left lower extremity as needed for swelling. Pending Studies at Discharge: No Stand-Alone Forms: My [facility], Smoking Cessation Medications and DC Order Prescriptions: New Stephanie Butt Paste 16 % Ointment 1 applic EXT QSHIFT Qty: 0 0RF menthol-zinc oxide [Calmoseptine] 0.44-20.6 % Ointment 1 applic EXT QSHIFT Qty: 0 0RF Continued polyethylene glycol 3350 [Miralax] 17 gram/dose powder 17 g PO DAILY ferrous sulfate 325 mg (65 mg iron) tablet,delayed release (DR/EC) 325 mg PO BID Qty: 60 5RF atorvastatin [Lipitor] 80 mg tablet 80 mg PO HS Qty: 90 3RF chlorthalidone 25 mg tablet 25 mg PO QAM Qty: 90 3RF folic acid 1 mg tablet 1 mg PO QAM Qty: 30 5RF Label Comments: PT CURRENLTY NOT TAKING/WAITING FOR PHARMACY levothyroxine [Synthroid] 175 mcg tablet 175 mcg PO QAM Qty: 90 2RF potassium chloride 20 mEq tablet extended release 20 meq PO BID Qty: 60 3RF Rx Instructions: take 1 tablet by mouth twice a day metoprolol tartrate 25 mg tablet 12.5 mg PO BID Qty: 90 3RF calcitriol [Rocaltrol] 0.25 mcg capsule 0.25 mcg PO QAM Qty: 30 5RF clopidogrel [Plavix] 75 mg tablet 75 mg PO QAM Qty: 30 5RF Label Comments: LAST DOSE YESTERDAY , TOLD TO STOP UNTIL AFTER SURGERY Adult 50 Plus Probiotic 4 billion cell capsule 4,000 mmu cells PO QAM Rx Instructions: administer with a meal pantoprazole [Protonix] 40 mg tablet,delayed release (DR/EC) 40 mg PO UD PRN (Reason: Acid Reflux) acetaminophen [Tylenol Extra Strength] 500 mg tablet 1,000 mg PO Q8 PRN (Reason: Pain) nystatin 100,000 unit/gram powder 1 applic topical BID PRN (Reason: Skin Irritation) Label Comments: ABOUT OUT OF , NEED TO SEE IF I CAN GET A REFILL Rx Instructions: apply to groin oxycodone 5 mg Tablet 5 - 10 mg PO Q4 PRN (Reason: pain) Qty: 30 0RF tramadol 50 mg tablet 50 - 100 mg PO Q6H PRN (Reason: pain) Qty: 20 0RF Rx Instructions: initial therapy for breakthrough pain aspirin [Mohit Low Dose Aspirin] 81 mg tablet,delayed release (DR/EC) 81 mg PO QAM docusate sodium [Colace] 100 mg Capsule 100 mg PO DIRECTED PRN (Reason: Constipation) insulin aspart U-100 [Novolog U-100 Insulin aspart] 100 unit/mL solution 0 unit continuous subcutaneous infusion DAILY MDD 75 UNITS/DAILY Rx Instructions: Via insulin pump; TDD 75 units magnesium oxide 400 mg (241.3 mg magnesium) Tablet 400 mg PO QAM Qty: 30 0RF Discharge Orders: Discharge Order (Routine); Ordered 09/06/22 Ordered By: Vandana Morse/Other Patient Handouts: Healthy Meals for Diabetes Admission Data Admit Date/Time: 08/24/22 17:54 Attending Provider: Jessica Partida Admit Provider: Xander Gaxiola Primary Care Provider: Jeremias Morton Other Providers: Xander Gaxiola ; Xander Soto ; [facility],Home Healthcare ; Lui Ellis Other Interventions: Discharge Summary Assessment (RN) Last Done: 09/06/22 11:17 Supervising Physician Co-Signing Physician Notes Patient seen and examined independently of PGY-1 Dr. Rm. Agree with history, exam findings, assessment, and plan of care as outlined. In brief, Mr. Chowdhury is a 67-year-old male with hx of DM, prior left AKA, CKD, PAD, HTN admitted with infection of the left AKA wound. No complaints. Wound care has seen him and will apply the wound vac this morning. VS and nursing notes reviewed. Well appearing. MMM Dressing on the left LE is clean, dry, and in tact. Labs and imaging reviewed. 1. Left AKA wound dehiscence with suspected cellulitis. Wound cultures positive for staph and pseudomonas. S/p 10 days of zosyn. wound vac has been ap proved and will be applied prior to discharge. He is set up with the wound clinic. 2. 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 Negative c. diff toxin in the setting of loose stools and recent antibiotics. Started loperamide. 3. DM1. Basal bolus insulin. Transition back to home pump. 4. PAD. Continue ASA and Plavix, atorvastatin 80mg. Continue home metoprolol 12.5mg BID. Dispo: home with home health. I personally spent 20 minutes discharge planning for this patient. Resident Activity Tracking Resident Involvement: Resident Care Provided Care Provided: Adult Hospital Medicine
== END 2022-09-06 14:27 | disposition home health service (06) | DRG 564 ==
LOC: ED 15:09 → 3E 15:09 → SUATTDRO 18:35 → 3E 23:14 → SUATTDRO 08-24 17:54

== ENCOUNTER 2022-11-25 15:35 | Inpatient (IN) ==
[2022-11-25] MEDS ORDERED: SODIUM CHLORIDE 0.9% 1000ML 1,000 ML IV SCH (16:00)
[2022-11-25 16:52] LABS: Basophils # (auto) 0.03 K/uL (0-0.2); Basophils % (auto) 0.2 %; Eosinophils # (auto) 0.04 K/uL (0-0.50); Eosinophils % (auto) 0.3 %; Hematocrit (blood only) 34.6 % (42.0-52.0); Hemoglobin 11.6 g/dl (14.0-18.0); Immature Granulocytes # (auto) 0.06 K/uL (0.01-0.20); Immature Granulocytes % (auto) 0.5 %; Lymphocytes % (auto) 11.8 %; Mean Corpuscular Hemoglobin 26.1 pg (25.0-34.0); Mean Corpuscular Hgb Conc 33.5 g/dL (32.0-36.0); Mean Corpuscular Volume 77.8 fL (80.0-100.0); Mean Platelet Volume 9.2 fL (9.4-12.4); Monocytes # (auto) 1.93 K/uL (0.11-0.59); Monocytes % (auto) 15.1 %; Neutrophils % (auto) 72.1 %; Platelet Count 414 K/uL (130-400); RDW Coefficient of Variation 15.6 % (11.5-14.5); RDW Standard Deviation 43.9 fL (36.4-46.3); Red Blood Count 4.45 M/uL (4.70-6.10); White Blood Count 12.76 K/ul (4.8-10.8)
--- NOTE | 2022-11-25 17:01 | Emergency Department Note ---
Impression & Plan Rectal bleeding, Anemia, Perirectal abscess, Leukocytosis ED Provider Note NAME: BRANDON MOE Jr AGE: 67 SEX: M : 1955 ARRIVES VIA: Ambulance INFORMANT: [Patient] ED PROVIDER(S): [Tae Farrell MD] CHIEF COMPLAINT: GI assessment HISTORY OF PRESENT ILLNESS: The patient is a 67-year-old male who has had intermittent blood in his stool for 3 weeks. Today, he had a lot of blood in the stool with a bout of diarrhea. He was able to show a picture that showed bright red blood. The patient does not have any abdominal pain, no rectal pain. He had a colonoscopy in the past and they only found benign polyps. He is on Plavix and aspirin, no other blood thinning agents. He has never had GI bleeding in the past. The patient has not had cough or congestion in the last week. He is not short of breath. He feels a bit fatigued though today he thinks. Of note, the patient refuses a rectal exam. PMHx/PSHx: See Below SOCIAL HISTORY: See Below. PHYSICAL EXAM: GENERAL: Patient is in no acute distress. HEENT: No acute trauma, normocephalic atraumatic, mucous membranes moist, no nasal congestion. NECK: No stridor, no adenopathy, no meningismus, trachea is midline. LUNGS: 2/6 systolic murmur, regular rate and rhythm. HEART: Without murmurs gallops or rubs, regular rate and rhythm. ABDOMEN: Soft, nontender, bowel sounds positive, no peritonitis. EXTREMITIES: No cyanosis. The patient has a left [id number] amputation and a right below the knee amputation. A prosthesis is on the right. NEUROLOGIC: Oriented x 3, no acute motor or sensory deficits, no focal weakness. SKIN: No rash, no jaundice, no diaphoresis. Rectal exam: Refused. DIFFERENTIAL DIAGNOSIS: Lower GI bleeding, colonic polyp, colonic mass, hemorrhoids, anemia, electrolyte imbalance, coagulopathy, among others. EMERGENCY DEPARTMENT COURSE/PROCEDURES: Prior/Outside records reviewed: None. ECG per my interpretation: Indication was possible GI bleed. The ECG shows a normal sinus rhythm with a rate of 80. There is a right bundle branch block. There is a potential old inferior infarct. There is no ST elevation, no PVCs. The QTc is 512. Compared to an ECG from 29 July 2022, I see no significant change. Continuous Cardiac Monitoring per my interpretation: An order was placed for continuous cardiac monitoring. The monitor shows a rate of 78 with normal sinus rhythm. MEDICAL DECISION MAKING: There is a mild leukocytosis, this could be consistent with infection. The patient is anemic however, this appears baseline looking back at previous testing. Platelet count very mildly elevated. INR was slightly high at 1.2. Renal panel testing showed a lower sodium and lower potassium, no renal failure. No concerning liver enzyme elevation. COVID test returned negative. Abdominal and pelvis CT shows evidence for a perirectal abscess on the left. On exam, the patient was not toxic or febrile. The patient received IV saline, 1 L. He received IV Zosyn as empiric antibiotic coverage. He received IV Zofran for nausea. I talked to the patient about his findings, I did speak with case management, I spoke with the on-call general surgeon, Dr. Hawley. The patient is going to go to the operating room for definitive surgical management. I did speak with the on-call hospitalist as the patient will require some medical management as well. He has multiple baseline medical problems. I suspect the abscess began to drain on its own today, this would explain the excessive amount of drainage. This would explain why the patient did not have any significant pain in the rectal area. DISPOSITION: Patient's presentation and findings warrant a hospital stay. 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) Hx MRSA infection 01/2022 (left heel) Surgical History (Updated 10/21/22 @ 17:05 by Pablo Barros MD) Below-knee amputation of right lower extremity H/O cataract extraction R/L H/O endarterectomy R common femoral (11/2018) H/O vascular surgery Right Femoral to Posterior tibial Prosthetic Bypass Graft(Right) History of ankle surgery LEFT ANKLE +HARDWARE REMOVED History of aortic valve replacement 2015 ([facility] [place]) History of arterial bypass of lower extremity Left femoral to PT composite bypass graft (06/2020) History of cardiac cath x2, most recent 2016 > no stents (subsequent CABG with AVR in 2016); [facility] History of carpal tunnel release R/L History of colonoscopy History of coronary artery bypass graft CABG x1 + AVR (2016) History of esophagogastroduodenoscopy (EGD) History of myringotomy w/tubes bilat. History of open reduction and internal fixation (ORIF) procedure LLE () History of skin graft Split Thickness Skin Graft of Left Lateral Ankle (11/18/20): LMA#5, atraumatic x1 at [facility] History of tonsillectomy History of tooth extraction History of umbilical hernia repair Hx of cystoscopy w/stent placement; stent then removed Hx of surgical procedure Left Leg Wound Debridement and Irrigation S/P femoral-tibial bypass S/P femoropopliteal bypass surgery Right fem-pop bypass graft (01/19/21): Grade 2 view, MAC 3.0, ETT 8.0 at [facility] S/P insertion of iliac artery stent B/L iliac stent placement (2014) 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 Left transmetatarsal amputation (11/23/21): LMA# 5.0 at [facility]. No issues noted per post-op anesthesia progress note. HX 1 SX TO REMOVE ALL TOES LEFT FOOT NOVEMBER 2021 Family History Brother Family history of diabetes mellitus Sister Family history of diabetes mellitus Mother Family history of diabetes mellitus Grandmother (Maternal) Family history of diabetes mellitus Uncle Family hx of colon cancer Colorectal cancer Father Family history of esophageal cancer Sister Family history of diabetes mellitus Other No family history of adverse response to anesthesia Denies family history of Ovarian cancer Prostate cancer Myocardial infarction Breast cancer Social History Smoking Status: Former smoker Tobacco Type: Cigarettes and Smokeless Tobacco (Dip or Chew) Second Hand Exposure: Yes (as a child); Hx Alcohol Use: No Hx Substance Use: No Preferred Language: Vietnamese Communication Ability: Effective Visual Impairment: Limited Hearing Ability: Hard of Hearing [employer] Required: No Beliefs That Will Affect Care: None marital status: Current Living Situation: Other Current Living Situation Comment: roommate current occupational status: disabled How many Children do You have: 2 How many Children do You have Comment: family assists with care, also is part of the waiver program so the pt's roommate is able to assist with care through this program Feels Safe at Home: Yes Childhood Exposure to Second-Hand Smoke: Yes Diet Comment: Carb Counts. ([id number], roughly), protein drinks caffeine: Yes (coffee, rarely ) during the past year weight has: remained stable Dental Care, Regularly: No Seatbelt Use: always Sunscreen Use: No Gender Identity: Male Assistive Devices: Prosthesis, Slide Board, Walker and Wheelchair Allergies Allergies Allergy/AdvReac Type Severity Reaction Status Date / Time No Known Allergies Allergy Unknown Verified 11/25/22 18:46 Home Meds Home Medications Medication Instructions Recorded Confirmed aspirin 81 mg tablet,delayed 81 mg PO QAM 05/04/21 11/25/22 release (Mohit Low Dose Aspirin) lactobacillus combination no.9 4 4,000 mmu cells PO QAM 08/04/21 11/25/22 billion cell capsule (Adult 50 Plus Probiotic) docusate sodium 100 mg capsule 100 mg PO DIRECTED PRN 01/04/22 11/25/22 (Colace) Constipation acetaminophen 500 mg tablet 1,000 mg PO Q8 PRN Pain 07/18/22 11/25/22 (Tylenol Extra Strength) nystatin 100,000 unit/gram topical 1 applic topical BID PRN Skin 07/18/22 11/25/22 powder Irritation polyethylene glycol 3350 17 17 g PO DAILY 08/23/22 11/25/22 gram/dose oral powder (Miralax) insulin aspart U-100 100 unit/mL 0 unit continuous subcutaneous 11/25/22 11/25/22 subcutaneous solution (Novolog infusion DAILY U-100 Insulin aspart) menthol 0.44 %-zinc oxide 20.6 % 1 applic EXT TID 11/25/22 11/25/22 topical ointment (Calmoseptine) zinc oxide 16 % topical ointment 1 applic EXT TID 11/25/22 11/25/22 (Boudreauxs Butt Paste) Previous Rx's Medication Instructions Recorded ferrous sulfate 325 mg (65 mg 325 mg PO BID #60 tabs 08/03/21 iron) tablet,delayed release atorvastatin 80 mg tablet (Lipitor) 80 mg PO HS #90 tabs 11/15/21 chlorthalidone 25 mg tablet 25 mg PO QAM #90 tabs 05/20/22 folic acid 1 mg tablet 1 mg PO QAM #30 tabs 06/23/22 levothyroxine 175 mcg tablet 175 mcg PO QAM #90 tabs 07/01/22 (Synthroid) magnesium oxide 400 mg (241.3 mg 400 mg PO QAM #30 tabs 07/07/22 magnesium) tablet oxycodone 5 mg tablet 5 - 10 mg PO Q4 PRN pain #30 tabs 07/22/22 tramadol 50 mg tablet 50 - 100 mg PO Q6H PRN pain #20 07/22/22 tabs metoprolol tartrate 25 mg tablet 12.5 mg PO BID #90 tabs 08/08/22 potassium chloride 20 mEq 20 meq PO BID #60 tabs 08/08/22 tablet,extended release calcitriol 0.25 mcg capsule 0.25 mcg PO QAM #30 caps 08/19/22 (Rocaltrol) clopidogrel 75 mg tablet (Plavix) 75 mg PO QAM #30 tabs 08/19/22 pantoprazole 40 mg tablet,delayed 40 mg PO UD PRN Acid Reflux #90 10/28/22 release (Protonix) tabs ezetimibe 10 mg tablet 10 mg PO DAILY #30 tabs 11/14/22 Results & Data (ED) Vital Signs Vital Signs - 24 hr 11/25/22 15:54 11/25/22 16:06 11/25/22 16:28 Temperature 37.3 C Temperature Source Oral Pulse Rate 83 83 78 Pulse Rate [Apical] Pulse Rate from SpO2 Sensor Pulse Rhythm [Apical] Respiratory Rate 17 14 Respiratory Effort / Characteristics Non-Labored Spontaneous Respiratory Depth Normal Respiratory Pattern Regular Blood Pressure 147/67 H Blood Pressure [Left Arm] Blood Pressure Mean 93 Blood Pressure Mean [Left Arm] Blood Pressure Position Lying Blood Pressure Position [Left Arm] Pulse Oximetry 97 94 Oxygen Delivery Method Room Air Room Air Oxygen Flow Rate Sepsis Recent Fever Within 48 Hours No Sepsis New/Unexplained Change in Mental Status N/A Sepsis Action Taken by Nursing No Action Required 11/25/22 16:04 11/25/22 16:30 11/25/22 17:00 Temperature Temperature Source Pulse Rate 82 78 77 Pulse Rate [Apical] Pulse Rate from SpO2 Sensor 82 78 78 Pulse Rhythm [Apical] Respiratory Rate 18 18 19 Respiratory Effort / Characteristics Respiratory Depth Respiratory Pattern Blood Pressure 112/61 Blood Pressure [Left Arm] Blood Pressure Mean 78 Blood Pressure Mean [Left Arm] Blood Pressure Position Blood Pressure Position [Left Arm] Pulse Oximetry 95 94 94 Oxygen Delivery Method Oxygen Flow Rate Sepsis Recent Fever Within 48 Hours Sepsis New/Unexplained Change in Mental Status Sepsis Action Taken by Nursing 11/25/22 17:30 11/25/22 18:00 11/25/22 18:30 Temperature Temperature Source Pulse Rate 74 78 76 Pulse Rate [Apical] Pulse Rate from SpO2 Sensor 75 Pulse Rhythm [Apical] Respiratory Rate 18 14 17 Respiratory Effort / Characteristics Respiratory Depth Respiratory Pattern Blood Pressure Blood Pressure [Left Arm] Blood Pressure Mean Blood Pressure Mean [Left Arm] Blood Pressure Position Blood Pressure Position [Left Arm] Pulse Oximetry 93 Oxygen Delivery Method Oxygen Flow Rate Sepsis Recent Fever Within 48 Hours Sepsis New/Unexplained Change in Mental Status Sepsis Action Taken by Nursing 11/25/22 20:34 11/25/22 21:40 11/25/22 21:50 Temperature 37.3 C Temperature Source Temporal Artery Scan Temporal Artery Scan Pulse Rate 82 Pulse Rate [Apical] 75 74 Pulse Rate from SpO2 Sensor Pulse Rhythm [Apical] Regular Regular Respiratory Rate 18 14 13 Respiratory Effort / Characteristics Non-Labored Spontaneous Non-Labored Spontaneous Respiratory Depth Normal Normal Respiratory Pattern Regular Regular Blood Pressure 135/63 Blood Pressure [Left Arm] 109/60 Blood Pressure Mean Blood Pressure Mean [Left Arm] 76 Blood Pressure Position Blood Pressure Position [Left Arm] Lying Lying Pulse Oximetry 95 100 98 Oxygen Delivery Method Room Air Oxymask Oxymask Oxygen Flow Rate 7 5 Sepsis Recent Fever Within 48 Hours Sepsis New/Unexplained Change in Mental Status Sepsis Action Taken by Nursing 11/25/22 22:10 11/25/22 22:00 Temperature Temperature Source Temporal Artery Scan Temporal Artery Scan Pulse Rate Pulse Rate [Apical] 74 74 Pulse Rate from SpO2 Sensor Pulse Rhythm [Apical] Regular Regular Respiratory Rate 14 10 L Respiratory Effort / Characteristics Non-Labored Spontaneous Non-Labored Spontaneous Respiratory Depth Normal Normal Respiratory Pattern Regular Regular Blood Pressure Blood Pressure [Left Arm] 111/65 122/60 Blood Pressure Mean Blood Pressure Mean [Left Arm] 80 80 Blood Pressure Position Blood Pressure Position [Left Arm] Lying Lying Pulse Oximetry 97 98 Oxygen Delivery Method Room Air Oxymask Oxygen Flow Rate 3 Sepsis Recent Fever Within 48 Hours Sepsis New/Unexplained Change in Mental Status Sepsis Action Taken by [facility] Medications Current Medication List: was personally reviewed by me Laboratory Data Attestation: I reviewed the patient's lab results. 11/25/22 16:24 11/25/22 16:24 Lab Results 11/25/22 11/25/22 11/25/22 Range/Units 16:24 16:24 16:24 WBC 12.76 H (4.8-10.8) K/ul RBC 4.45 L (4.70-6.10) M/uL Hgb 11.6 L (14.0-18.0) g/dl Hct 34.6 L (42.0-52.0) % MCV 77.8 L (80.0-100.0) fL MCH 26.1 (25.0-34.0) pg MCHC 33.5 (32.0-36.0) g/dL RDW Std Deviation 43.9 (36.4-46.3) fL RDW Coeff of Chan 15.6 H (11.5-14.5) % Plt Count 414 H (130-400) K/uL MPV 9.2 L (9.4-12.4) fL Immature Gran % (Auto) 0.5 % Neut % (Auto) 72.1 % Lymph % (Auto) 11.8 % [place] % (Auto) 15.1 % Eos % (Auto) 0.3 % Baso % (Auto) 0.2 % Neut # (Auto) 9.20 H (1.40-6.50) K/uL Lymph # (Auto) 1.50 (1.2-3.4) K/uL [place] # (Auto) 1.93 H (0.11-0.59) K/uL Eos # (Auto) 0.04 (0-0.50) K/uL Baso # (Auto) 0.03 (0-0.2) K/uL Immature Gran # (Auto) 0.06 (0.01-0.20) K/uL PT 12.4 H (9.0-12.0) Seconds INR 1.2 H (0.9-1.1) APTT 26.2 (21.0-31.0) Seconds PTT Ratio 1.0 Sodium 132 L (136-145) mmol/L Potassium 3.2 L (3.5-5.1) mmol/L Chloride 88 L (98-107) mmol/L Carbon Dioxide 35 H (21-32) mmol/L Anion Gap 9 (3-11) BUN 16 (6-23) mg/dl Creatinine 0.74 (0.6-1.4) mg/dl Est Cr Clr Drug Dosing 96.3 ml/min Est GFR ( Amer) 112.2 ml/min Est GFR (Non-Af Amer) 96.8 ml/min BUN/Creatinine Ratio 21.6 H (10-20) Glucose 76 (70-99(Fasting)) mg/dl POC Glucose (70-99) mg/dl Calcium 8.8 (8.5-10.1) mg/dl Total Bilirubin 0.9 (0.2-1.0) mg/dl AST 19 (13-39) U/L ALT 9 (7-52) U/L Alkaline Phosphatase 103 (34-104) U/L Total Protein 7.8 (6.0-8.3) gm/dl Albumin 3.2 L (3.4-5.0) gm/dl Globulin 4.6 H (2.5-4.0) gm/dl Albumin/Globulin Ratio 0.7 L (0.9-2) SARS-CoV-2, RNA, NAAT (NEGATIVE) Blood Type Antibody Screen 11/25/22 11/25/22 11/25/22 Range/Units 16:26 16:37 21:48 WBC (4.8-10.8) K/ul RBC (4.70-6.10) M/uL Hgb (14.0-18.0) g/dl Hct (42.0-52.0) % MCV (80.0-100.0) fL MCH (25.0-34.0) pg MCHC (32.0-36.0) g/dL RDW Std Deviation (36.4-46.3) fL RDW Coeff of Chan (11.5-14.5) % Plt Count (130-400) K/uL MPV (9.4-12.4) fL Immature Gran % (Auto) % Neut % (Auto) % Lymph % (Auto) % [place] % (Auto) % Eos % (Auto) % Baso % (Auto) % Neut # (Auto) (1.40-6.50) K/uL Lymph # (Auto) (1.2-3.4) K/uL [place] # (Auto) (0.11-0.59) K/uL Eos # (Auto) (0-0.50) K/uL Baso # (Auto) (0-0.2) K/uL Immature Gran # (Auto) (0.01-0.20) K/uL PT (9.0-12.0) Seconds INR (0.9-1.1) APTT (21.0-31.0) Seconds PTT Ratio Sodium (136-145) mmol/L Potassium (3.5-5.1) mmol/L Chloride (98-107) mmol/L Carbon Dioxide (21-32) mmol/L Anion Gap (3-11) BUN (6-23) mg/dl Creatinine (0.6-1.4) mg/dl Est Cr Clr Drug Dosing ml/min Est GFR ( Amer) ml/min Est GFR (Non-Af Amer) ml/min BUN/Creatinine Ratio (10-20) Glucose (70-99(Fasting)) mg/dl POC Glucose 92 (70-99) mg/dl Calcium (8.5-10.1) mg/dl Total Bilirubin (0.2-1.0) mg/dl AST (13-39) U/L ALT (7-52) U/L Alkaline Phosphatase (34-104) U/L Total Protein (6.0-8.3) gm/dl Albumin (3.4-5.0) gm/dl Globulin (2.5-4.0) gm/dl Albumin/Globulin Ratio (0.9-2) SARS-CoV-2, RNA, NAAT NEGATIVE (NEGATIVE) Blood Type A Positive Antibody Screen NEGATIVE Administered Medications Discontinued Medications Bacitracin (Bacitracin Oint 15 Gm Tube) Confirm Administered Dose 45 appln .ROUTE .Small Demons-Lendio ONE Stop: 11/25/22 20:10 Last Admin: 11/25/22 21:34 Dose: 45 appln Documented By: DELIA Bupivacaine HCl (Bupivacaine 0.5 % 5 Mg/1 Ml Mpf 30ml Vial) Confirm Administered Dose 30 ml .ROUTE .STK-MED ONE Stop: 11/25/22 20:10 Last Admin: 11/25/22 21:37 Dose: 5 ml Documented By: DELIA Sodium Chloride (Nss 1000ml) 1,000 mls @ 999 mls/hr IV .Q1H1M LIZZY Stop: 11/25/22 17:00 Last Infusion: 11/25/22 18:37 Dose: 0 mls/hr Documented By: Admin: 11/25/22 16:19 Dose: 999 mls/hr Documented By: SHANA Piperacillin Sod/Tazobactam Sod (Zosyn) 4.5 gm in 120 mls @ 240 mls/hr IV NOW ONE Stop: 11/25/22 18:27 Last Infusion: 11/25/22 19:15 Dose: 0 mls/hr Documented By: Admin: 11/25/22 18:37 Dose: 240 mls/hr Documented By: CHRYSTAL Ioversol (Optiray 350 100ml) 88 ml IV ONCE ONE Stop: 11/25/22 17:39 Last Admin: 11/25/22 17:39 Dose: 88 ml Documented By: TRISTEN Lidocaine HCl (Lidocaine 1% Local 20 Ml Vial) Confirm Administered Dose 20 ml .ROUTE .STK-MED ONE Stop: 11/25/22 20:11 Last Admin: 11/25/22 21:34 Dose: 5 ml Documented By: DELIA Imaging Data Radiologist's Impression: Abdomen/Pelvis CT 11/25/22 16:[address] WITH IV CONTRAST CT DOSE: 329.95 mGy.cm HISTORY: GI bleed. TECHNIQUE: Multiaxial CT images of the abdomen and pelvis were performed following the use of intravenous contrast. A dose lowering technique was utilized adhering to the principles of ALARA. COMPARISON STUDY: Right lower extremity CTA 07/01/2021. Abdomen and pelvis CT 05/04/2021. FINDINGS: A few bibasilar linear densities suggestive of subsegmental atelectasis are scarring. There are poststernotomy changes. An aortic valve pro sthesis is partially visualized. No suspicious lytic or blastic osseous lesions. Mild thickening of the gastric antrum is noted. Moderate fecal retention. No evidence for a bowel obstruction. Visualized appendix is unremarkable. The liver, gallbladder, pancreas, and spleen are unremarkable. Bilateral adrenal gland nodules remain unchanged. There is bilateral nephrolithiasis. No ureteral stones. No hydronephrosis. Extensive atherosclerotic plaque within the normal caliber abdominal aorta. The main complaints patent. No retroperitoneal lymphadenopathy. There is a right common iliac artery stent which is patent. Multifocal areas of stenosis within the left iliac arteries and right external iliac artery due to the calcified plaque. There are postoperative changes within the bilateral common femoral arteries. Occluded proximal bilateral superficial femoral artery stents. The prostate gland is mildly enlarged. The bladder is distended with mild gallbladder wall thickening. There is a left perirectal gas and fluid collection which demonstrates left-sided supralevator extension and extends into the left perirectal space. There is asymmetric thickening of the left rectal wall with left perirectal fat stranding/edema. The left perirectal gas and fluid collection measures 6.6 x 2.7 cm. Therefore, this favors a left perirectal abscess with supra levator extension. A contained left-sided rectal perforation could also have a similar appearance. Therefore, follow-up endoscopy recommended to assess for the possibility of a left-sided rectal mass. IMPRESSION: 1. There is a left perirectal gas and fluid collection which demonstrates left- sided supralevator extension and extends into the left perirectal space. There is asymmetric thickening of the left rectal wall with left perirectal fat stranding/edema. The left perirectal gas and fluid collection measures 6.6 x 2.7 cm. Therefore, this favors a left perirectal abscess with supra levator extension. A contained left-sided rectal perforation could also have a similar appearance. Therefore, follow-up endoscopy recommended to assess for the possibility of a left-sided rectal mass. 2. Mild nonspecific thickening at the gastric antrum. This may represent a gastritis or ulcerative disease. Consider follow-up endoscopy. 3. No evidence for bowel obstruction. 4. Bilateral nephrolithiasis. No hydronephrosis. 5. Additional findings as described above. ACT 112: Negative or not required by law. Electronically signed by: Otf Avila M.D. 11/25/2022 5:52 PM Discharge Plan Visit Data Chief Complaint: GI Assessment ED Provider: Tae Farrell Discharge Problem: Rectal bleeding, Anemia, Perirectal abscess, Leukocytosis Patient Disposition: Admitted As Inpatient Condition: Fair Discharge Instructions Interventions: ED Discharge Assessment Last Done: 11/25/22 20:34
[2022-11-25 17:06] LABS: Albumin Level 3.2 gm/dl (3.4-5.0); BUN Creatinine Ratio 21.6 (10-20); Bilirubin,Total 0.9 mg/dl (0.2-1.0); Calcium 8.8 mg/dl (8.5-10.1); Creatinine Clr Calc Pharmacy 96.3 ml/min; Est GFR (African American) 112.2 ml/min; Est GFR (Non-African American) 96.8 ml/min; Potassium 3.2 mmol/L (3.5-5.1)
[2022-11-25 17:17] LABS: INR 1.2 (0.9-1.1); Partial Thromboplastin Time 26.2 Seconds (21.0-31.0); Prothrombin Time 12.4 Seconds (9.0-12.0)
[2022-11-25 17:31] LABS: Albumin Globulin Ratio 0.7 (0.9-2); Globulin 4.6 gm/dl (2.5-4.0); Total Protein 7.8 gm/dl (6.0-8.3)
[2022-11-25] MEDS ORDERED: OPTIRAY 350 100ml IV ONE (17:38)
--- NOTE | 2022-11-25 17:54 | CT Scan Report ---
ABDOMEN AND PELVIS CT WITH IV CONTRAST CT DOSE: 329.95 mGy.cm HISTORY: GI bleed. TECHNIQUE: Multiaxial CT images of the abdomen and pelvis were performed following the use of intrave nous contrast. A dose lowering technique was utilized adhering to the principles of ALARA. COMPARISON STUDY: Right lower extremity CTA 07/01/2021. Abdomen and pelvis CT 05/04/2021. FINDINGS: A few bibasilar linear densities suggestive of subsegmental atelectasis are scarring. There are poststernotomy changes. An aortic valve prosthesis is partially visualized. No suspicious lytic or blastic osseous lesions. Mild thickening of the gastric antrum is noted. Moderate fecal retention. No evidence for a bowel obstruction. Visualized appendix is unremarkable. The liver, gallbladder, pa ncreas, and spleen are unremarkable. Bilateral adrenal gland nodules remain unchanged. There is bilat eral nephrolithiasis. No ureteral stones. No hydronephrosis. Extensive atherosclerotic plaque within the normal caliber abdominal aorta. The main complaints patent. No retroperitoneal lymphadenopathy. T here is a right common iliac artery stent which is patent. Multifocal areas of stenosis within the le ft iliac arteries and right external iliac artery due to the calcified plaque. There are postoperativ e changes within the bilateral common femoral arteries. Occluded proximal bilateral superficial femor al artery stents. The prostate gland is mildly enlarged. The bladder is distended with mild gallbladd er wall thickening. There is a left perirectal gas and fluid collection which demonstrates left-sided supralevator extension and extends into the left perirectal space. There is asymmetric thickening of the left rectal wall with left perirectal fat stranding/edema. The left perirectal gas and fluid col lection measures 6.6 x 2.7 cm. Therefore, this favors a left perirectal abscess with supra levator ex tension. A contained left-sided rectal perforation could also have a similar appearance. Therefore, f ollow-up endoscopy recommended to assess for the possibility of a left-sided rectal mass. IMPRESSION: 1. There is a left perirectal gas and fluid collection which demonstrates left-sided supralevator ext ension and extends into the left perirectal space. There is asymmetric thickening of the left rectal wall with left perirectal fat stranding/edema. The left perirectal gas and fluid collection measures 6.6 x 2.7 cm. Therefore, this favors a left perirectal abscess with supra levator extension. A contai trish left-sided rectal perforation could also have a similar appearance. Therefore, follow-up endoscop y recommended to assess for the possibility of a left-sided rectal mass. 2. Mild nonspecific thickening at the gastric antrum. This may represent a gastritis or ulcerative di sease. Consider follow-up endoscopy. 3. No evidence for bowel obstruction. 4. Bilateral nephrolithiasis. No hydronephrosis. 5. Additional findings as described above. ACT 112: Negative or not required by law. Electronically signed by: Otf Avila M.D. 11/25/2022 5:52 PM
[2022-11-25] MEDS ORDERED: PIPERACILLIN/TAZOBACTAM 4.5 GM/120 ML BAG IV ONE (17:58)
[2022-11-25] MEDS ORDERED: BUPIVACAINE 0.5 % 5 MG/1 ML MPF 30ML VIAL ONE (20:09)
[2022-11-25] MEDS ORDERED: BACITRACIN OINT 15 GM TUBE ONE (20:09)
--- NOTE | 2022-11-25 20:09 | Surgery Consultation ---
Date of Consultation November 25, 2022 Assessment & Plan (1) Marychuy-rectal abscess: pt is a 67 year-old male who presents to ER with 3 weeks history rectal bleeding and pain, IMP: perirectal abscess, Plan, base on H/P, labs and CT scan finding- I recommend to do I/D perirectal abscess, D/W benefits, risk sand alternatives of the surgery, the risks - infection, bleeding, sepsis, [place],DVT, , pt and his and daughter understood, they agreed with surgery, pt signed informed consent, I answered all questions, pre-op iv antibiotic. History of Present Illness Reason for Consultation: perirectal abscess Requesting Physician: Tae Farrell MD History of Present Illness CHIEF COMPLAINT: rectal bleeding HISTORY OF PRESENT ILLNESS: The patient is a 67-year-old male who has had intermittent blood in his stool for 3 weeks. Today, he had a lot of blood in the stool with a bout of diarrhea. He was able to show a picture that showed bright red blood. The patient does not have any abdominal pain, no rectal pain. He had a colonoscopy in the past and they only found benign polyps. He is on Plavix and aspirin, no other blood thinning agents. He has never had GI bleeding in the past. The patient has not had cough or congestion in the last week. He is not short of breath. He feels a bit fatigued though today he thinks. Of note, the patient refuses a rectal exam. I ( Klever Hawley MD ) got a call for consult perirectal abscess, I reviewed pt's H/P, labs and CT scan with pt his family members. Allergies Allergy/AdvReac Type Severity Reaction Status Date / Time No Known Allergies Allergy Unknown Verified 11/25/22 18:46 Home Medications Medication Instructions Recorded Confirmed Type aspirin 81 mg tablet,delayed 81 mg PO QAM 05/04/21 11/25/22 History release (Mohit Low Dose Aspirin) ferrous sulfate 325 mg (65 mg 325 mg PO BID #60 tabs 08/03/21 11/25/22 Rx iron) tablet,delayed release lactobacillus combination no.9 4 4,000 mmu cells PO QAM 08/04/21 11/25/22 History billion cell capsule (Adult 50 Plus Probiotic) atorvastatin 80 mg tablet (Lipitor) 80 mg PO HS #90 tabs 11/15/21 11/25/22 Rx docusate sodium 100 mg capsule 100 mg PO DIRECTED PRN 01/04/22 11/25/22 History (Colace) Constipation chlorthalidone 25 mg tablet 25 mg PO QAM #90 tabs 05/20/22 11/25/22 Rx folic acid 1 mg tablet 1 mg PO QAM #30 tabs 06/23/22 11/25/22 Rx levothyroxine 175 mcg tablet 175 mcg PO QAM #90 tabs 07/01/22 11/25/22 Rx (Synthroid) magnesium oxide 400 mg (241.3 mg 400 mg PO QAM #30 tabs 07/07/22 11/25/22 Rx magnesium) tablet acetaminophen 500 mg tablet 1,000 mg PO Q8 PRN Pain 07/18/22 11/25/22 History (Tylenol Extra Strength) nystatin 100,000 unit/gram topical 1 applic topical BID PRN Skin 07/18/22 History powder Irritation oxycodone 5 mg tablet 5 - 10 mg PO Q4 PRN pain #30 tabs 07/22/22 11/25/22 Rx tramadol 50 mg tablet 50 - 100 mg PO Q6H PRN pain #20 07/22/22 11/25/22 Rx tabs metoprolol tartrate 25 mg tablet 12.5 mg PO BID #90 tabs 08/08/22 11/25/22 Rx potassium chloride 20 mEq 20 meq PO BID #60 tabs 08/08/22 11/25/22 Rx tablet,extended release calcitriol 0.25 mcg capsule 0.25 mcg PO QAM #30 caps 08/19/22 11/25/22 Rx (Rocaltrol) clopidogrel 75 mg tablet (Plavix) 75 mg PO QAM #30 tabs 08/19/22 11/25/22 Rx polyethylene glycol 3350 17 17 g PO DAILY 08/23/22 11/25/22 History gram/dose oral powder (Miralax) pantoprazole 40 mg tablet,delayed 40 mg PO UD PRN Acid Reflux #90 10/28/22 11/25/22 Rx release (Protonix) tabs ezetimibe 10 mg tablet 10 mg PO DAILY #30 tabs 11/14/22 11/25/22 Rx insulin aspart U-100 100 unit/mL 0 unit continuous subcutaneous 11/25/22 11/25/22 History subcutaneous solution (Novolog infusion DAILY U-100 Insulin aspart) menthol 0.44 %-zinc oxide 20.6 % 1 applic EXT TID 11/25/22 11/25/22 History topical ointment (Calmoseptine) zinc oxide 16 % topical ointment 1 applic EXT TID 11/25/22 11/25/22 History (Boudreauxs Butt Paste) Patient History Medical History (Updated 11/25/22 @ 20:17 by Klever Hawley MD) Anemia Below-knee amputation of right lower extremity Candidal diaper rash Clostridium difficile colitis DVT prophylaxis Folate deficiency GERD (gastroesophageal reflux disease) History of Clostridium difficile infection s/p treatment (2020) History of colon polyps 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) Hx MRSA infection 01/2022 (left heel) Surgical History (Updated 10/21/22 @ 17:05 by Pablo Barros MD) Below-knee amputation of right lower extremity H/O cataract extraction R/L H/O endarterectomy R common femoral (11/2018) H/O vascular surgery Right Femoral to Posterior tibial Prosthetic Bypass Graft(Right) History of ankle surgery LEFT ANKLE +HARDWARE REMOVED History of aortic valve replacement 2016 ([facility] [place]) History of arterial bypass of lower extremity Left femoral to PT composite bypass graft (06/2020) History of cardiac cath x2, most recent 2016 > no stents (subsequent CABG with AVR in 2016); [facility] History of carpal tunnel release R/L History of colonoscopy History of coronary artery bypass graft CABG x1 + AVR (2015) History of esophagogastroduodenoscopy (EGD) History of myringotomy w/tubes bilat. History of open reduction and internal fixation (ORIF) procedure LLE () History of skin graft Split Thickness Skin Graft of Left Lateral Ankle (11/18/20): LMA#5, atraumatic x1 at [facility] History of tonsillectomy History of tooth extraction History of umbilical hernia repair Hx of cystoscopy w/stent placement; stent then removed Hx of surgical procedure Left Leg Wound Debridement and Irrigation S/P femoral-tibial bypass S/P femoropopliteal bypass surgery Right fem-pop bypass graft (01/19/21): Grade 2 view, MAC 3.0, ETT 8.0 at [facility] S/P insertion of iliac artery stent B/L iliac stent placement (2014) 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 Left transmetatarsal amputation (11/23/21): LMA# 5.0 at [facility]. No issues noted per post-op anesthesia progress note. HX 1 SX TO REMOVE ALL TOES LEFT FOOT NOVEMBER 2021 Family History Brother Family history of diabetes mellitus Sister Family history of diabetes mellitus Mother Family history of diabetes mellitus Grandmother (Maternal) Family history of diabetes mellitus Uncle Family hx of colon cancer Colorectal cancer Father Family history of esophageal cancer Sister Family history of diabetes mellitus Other No family history of adverse response to anesthesia Denies family history of Ovarian cancer Prostate cancer Myocardial infarction Breast cancer Social History Smoking Status: Former smoker Tobacco Type: Cigarettes and Smokeless Tobacco (Dip or Chew) Second Hand Exposure: Yes (as a child); Hx Alcohol Use: No Hx Substance Use: No Preferred Language: Nepalese Communication Ability: Effective Visual Impairment: Limited Hearing Ability: Hard of Hearing [employer] Required: No Beliefs That Will Affect Care: None marital status: Current Living Situation: Other Current Living Situation Comment: roommate current occupational status: disabled How many Children do You have: 2 How many Children do You have Comment: family assists with care, also is part of the waiver program so the pt's roommate is able to assist with care through this program Feels Safe at Home: Yes Childhood Exposure to Second-Hand Smoke: Yes Diet Comment: Carb Counts. ([id number], roughly), protein drinks caffeine: Yes (coffee, rarely ) during the past year weight has: remained stable Dental Care, Regularly: No Seatbelt Use: always Sunscreen Use: No Gender Identity: Male Assistive Devices: Prosthesis, Slide Board, Walker and Wheelchair Review of Systems Constitutional: as per Subjective / HPI Eyes: as per Subjective / HPI Respiratory: COPD Cardiovascular: Additional Comments: CAD, aortic stenosis Gastrointestinal: colonoscopy last year, remove polyp, rectal abscess Genitourinary: + problem reported (kidney stone) Physical Exam Gastrointestinal (Abdomen): rectal bleeding, pain Musculoskeletal: Left AKA, Right BKA Neurologic: patellar DTR's 2+ bilat, sensation intact Psychiatric: A+Ox3, euthymic affect Results & Data Vital Signs (Past 12 Hours) Vital Signs Temp Pulse Resp BP Pulse Ox O2 Del Method 11/25/22 18:30 76 17 11/25/22 18:00 78 14 11/25/22 17:30 74 18 93 11/25/22 17:00 77 19 112/61 94 11/25/22 16:30 78 18 94 11/25/22 16:04 82 18 95 11/25/22 16:28 78 14 94 Room Air 11/25/22 16:06 83 11/25/22 15:54 37.3 C 83 17 147/67 H 97 Room Air Laboratory Results Abnormal lab results 11/25/22 11/25/22 11/25/22 Range/Units 16:24 16:24 16:24 WBC 12.76 H (4.8-10.8) K/ul RBC 4.45 L (4.70-6.10) M/uL Hgb 11.6 L (14.0-18.0) g/dl Hct 34.6 L (42.0-52.0) % MCV 77.8 L (80.0-100.0) fL RDW Coeff of Chan 15.6 H (11.5-14.5) % Plt Count 414 H (130-400) K/uL MPV 9.2 L (9.4-12.4) fL Neut # (Auto) 9.20 H (1.40-6.50) K/uL Clay # (Auto) 1.93 H (0.11-0.59) K/uL PT 12.4 H (9.0-12.0) Seconds INR 1.2 H (0.9-1.1) Sodium 132 L (136-145) mmol/L Potassium 3.2 L (3.5-5.1) mmol/L Chloride 88 L (98-107) mmol/L Carbon Dioxide 35 H (21-32) mmol/L BUN/Creatinine Ratio 21.6 H (10-20) Albumin 3.2 L (3.4-5.0) gm/dl Globulin 4.6 H (2.5-4.0) gm/dl Albumin/Globulin Ratio 0.7 L (0.9-2) Diagnostic Findings ABDOMEN AND PELVIS CT WITH IV CONTRAST CT DOSE: 329.95 mGy.cm HISTORY: GI bleed. TECHNIQUE: Multiaxial CT images of the abdomen and pelvis were performed following the use of intravenous contrast. A dose lowering technique was utilized adhering to the principles of ALARA. COMPARISON STUDY: Right lower extremity CTA 07/01/2021. Abdomen and pelvis CT 05/04/2021. FINDINGS: A few bibasilar linear densities suggestive of subsegmental atelectasis are scarring. There are poststernotomy changes. An aortic valve pr osthesis is partially visualized. No suspicious lytic or blastic osseous lesions. Mild thickening of the gastric antrum is noted. Moderate fecal retention. No evidence for a bowel obstruction. Visualized appendix is unremarkable. The liver, gallbladder, pancreas, and spleen are unremarkable. Bilateral adrenal gland nodules remain unchanged. There is bilateral nephrolithiasis. No ureteral stones. No hydronephrosis. Extensive atherosclerotic plaque within the normal caliber abdominal aorta. The main complaints patent. No retroperitoneal lymphadenopathy. There is a right common iliac artery stent which is patent. Multifocal areas of stenosis within the left iliac arteries and right external iliac artery due to the calcified plaque. There are postoperative changes within the bilateral common femoral arteries. Occluded proximal bilateral superficial femoral artery stents. The prostate gland is mildly enlarged. The bladder is distended with mild gallbladder wall thickening. There is a left perirectal gas and fluid collection which demonstrates left-sided supralevator extension and extends into the left perirectal space. There is asymmetric thickening of the left rectal wall with left perirectal fat stranding/edema. The left perirectal gas and fluid collection measures 6.6 x 2.7 cm. Therefore, this favors a left perirectal abscess with supra levator extension. A contained left-sided rectal perforation could also have a similar appearance. Therefore, follow-up endoscopy recommended to assess for the possibility of a left-sided rectal mass. IMPRESSION: 1. There is a left perirectal gas and fluid collection which demonstrates left- sided supralevator extension and extends into the left perirectal space. There is asymmetric thickening of the left rectal wall with left perirectal fat stranding/edema. The left perirectal gas and fluid collection measures 6.6 x 2.7 cm. Therefore, this favors a left perirectal abscess with supra levator extension. A contained left-sided rectal perforation could also have a similar appearance. Therefore, follow-up endoscopy recommended to assess for the possibility of a left-sided rectal mass. 2. Mild nonspecific thickening at the gastric antrum. This may represent a gastritis or ulcerative disease. Consider follow-up endoscopy. 3. No evidence for bowel obstruction. 4. Bilateral nephrolithiasis. No hydronephrosis. 5. Additional findings as described above. ACT 112: Negative or not required by law.
[2022-11-25] MEDS ORDERED: LIDOCAINE 1% LOCAL 20 ML VIAL ONE (20:10)
--- NOTE | 2022-11-25 20:21 | History & Physical Bridge Note ---
Date of Service November 25, 2022 History & Physical Bridge Note I have examined the patient, reviewed the History & Physical and in the interval since the performance of the History & Physical I have noted the following changes of clinical significance: no changes noted
--- NOTE | 2022-11-25 20:24 | History & Physical Report ---
Date of Service November 25, 2022 Assessment & Plan (1) Perirectal abscess: Plan: Patient seen after OR drainage. CT abd noted 6.6x2.7cm left perirectal gas and fluid collection. + fever to 38.1C and mild leukocytosis (12.76). GI biofire ordered. Continue Zosyn. General surgery consulted. Wound care nurse consulted. (2) Rectal bleeding: Plan: Most likely secondary to the perirectal abscess. (3) Fever: Plan: 2/2 abscess vs postop. prn Tylenol. Will order blood cultures (already received abx). Wound cultures pending. (4) Type I diabetes mellitus, uncontrolled: Plan: Patient to use home pump. Check glucometer achs. Hypoglycemia protocol ordered. 11/04/22 A1c was 7.7. Patient's pump settings unknown. Reviewed last endocrine note (10/2022) and last hospital admission (08/2022). DM educator consulted for assistance in obtaining CGM and checking insulin pump settings. (5) Gastric wall thickening: Plan: Mild nonspecific thickening at gastric antrum per CT abd. Consider outpatient EGD. (6) Stage III pressure ulcer: Plan: Hx of. Routine wound care. (7) COPD (chronic obstructive pulmonary disease): Plan: Not on inhalers. (8) CAD (coronary artery disease): Plan: s/p CABGx1. Continue home Plavix and baby ASA. (9) Aortic stenosis: Plan: [place] [place] (10) Hypothyroidism: Plan: Continue home levothyroxine 175mcg. (11) Hypertension: Plan: Continue home chlorthalidone. (12) Dyslipidemia: Plan: Continue home atorvastatin 80 and ezetimibe. (13) Below-knee amputation of right lower extremity: Plan: Small scab wound noted. Routine wound care. (14) Above knee amputation of left lower extremity: Plan: Noted. Does not yet have prosthesis for. Per outpatient wound care notes, has nonhealing surgical of site. Plan DM1 diet. dvt ppx: no chemoppx postop; defer to gen surg full code, discussed with patient med tele History of Present Illness Chief Complaint: bright red blood per rectum Primary Care Provider: Jeremias Morton, DO 67 y/o male w/ DM1 on insulin pump, PAD, COPD, CKD, CAD, hypothyroidism, HTN, HLD, right BKA, and left BKA who presents via EMS w/ exacerbation of bloody stool which he has intermittently had for 2-3 weeks. He has had intermittent rectal pain. There is pain w/ defecation. He has had mild staining of underwear with bright red blood. Today, he had larger amount of blood so he called EMS. He had diarrhea today only. Denies fever, chills, headache, weakness, chest pain, or shortness of breath. He denies history of similar. 10/09/21 colonoscopy was normal w/ 3 year repeat recommended. ED course: NSS 1L. Zosyn. Gen surg consulted and brought patient to ED for I&D of perirectal abscess. Home insulin pump was continued w/ postop bsg in the . Allergies Allergy/AdvReac Type Severity Reaction Status Date / Time No Known Allergies Allergy Unknown Verified 11/25/22 18:46 Home Medications Medication Instructions Recorded Confirmed Type aspirin 81 mg tablet,delayed 81 mg PO QAM 05/04/21 11/25/22 History release (Mohit Low Dose Aspirin) ferrous sulfate 325 mg (65 mg 325 mg PO BID #60 tabs 08/03/21 11/25/22 Rx iron) tablet,delayed release lactobacillus combination no.9 4 4,000 mmu cells PO QAM 08/04/21 11/25/22 History billion cell capsule (Adult 50 Plus Probiotic) atorvastatin 80 mg tablet (Lipitor) 80 mg PO HS #90 tabs 11/15/21 11/25/22 Rx docusate sodium 100 mg capsule 100 mg PO DIRECTED PRN 01/04/22 11/25/22 History (Colace) Constipation chlorthalidone 25 mg tablet 25 mg PO QAM #90 tabs 05/20/22 11/25/22 Rx folic acid 1 mg tablet 1 mg PO QAM #30 tabs 06/23/22 11/25/22 Rx levothyroxine 175 mcg tablet 175 mcg PO QAM #90 tabs 07/01/22 11/25/22 Rx (Synthroid) magnesium oxide 400 mg (241.3 mg 400 mg PO QAM #30 tabs 07/07/22 11/25/22 Rx magnesium) tablet acetaminophen 500 mg tablet 1,000 mg PO Q8 PRN Pain 07/18/22 11/25/22 History (Tylenol Extra Strength) nystatin 100,000 unit/gram topical 1 applic topical BID PRN Skin 07/18/22 11/25/22 History powder Irritation oxycodone 5 mg tablet 5 - 10 mg PO Q4 PRN pain #30 tabs 07/22/22 11/25/22 Rx tramadol 50 mg tablet 50 - 100 mg PO Q6H PRN pain #20 07/22/22 11/25/22 Rx tabs metoprolol tartrate 25 mg tablet 12.5 mg PO BID #90 tabs 08/08/22 11/25/22 Rx potassium chloride 20 mEq 20 meq PO BID #60 tabs 08/08/22 11/25/22 Rx tablet,extended release calcitriol 0.25 mcg capsule 0.25 mcg PO QAM #30 caps 08/19/22 11/25/22 Rx (Rocaltrol) clopidogrel 75 mg tablet (Plavix) 75 mg PO QAM #30 tabs 08/19/22 11/25/22 Rx polyethylene glycol 3350 17 17 g PO DAILY 08/23/22 11/25/22 History gram/dose oral powder (Miralax) pantoprazole 40 mg tablet,delayed 40 mg PO UD PRN Acid Reflux #90 10/28/22 11/25/22 Rx release (Protonix) tabs ezetimibe 10 mg tablet 10 mg PO DAILY #30 tabs 11/14/22 11/25/22 Rx insulin aspart U-100 100 unit/mL 0 unit continuous subcutaneous 11/25/22 11/25/22 History subcutaneous solution (Novolog infusion DAILY U-100 Insulin aspart) menthol 0.44 %-zinc oxide 20.6 % 1 applic EXT TID 11/25/22 11/25/22 History topical ointment (Calmoseptine) zinc oxide 16 % topical ointment 1 applic EXT TID 11/25/22 11/25/22 History (Boudreauxs Butt Paste) Past Med/Surg History Medical History (Updated 11/25/22 @ 23:52 by Rony Vo MD) Above knee amputation of left lower extremity Anemia Below-knee amputation of right lower extremity Candidal diaper rash Clostridium difficile colitis DVT prophylaxis Folate deficiency GERD (gastroesophageal reflux disease) History of Clostridium difficile infection s/p treatment (2020) History of colon polyps 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) Hx MRSA infection 01/2022 (left heel) Surgical History (Updated 10/21/22 @ 17:05 by Pablo Barros MD) Below-knee amputation of right lower extremity H/O cataract extraction R/L H/O endarterectomy R common femoral (11/2018) H/O vascular surgery Right Femoral to Posterior tibial Prosthetic Bypass Graft(Right) History of ankle surgery LEFT ANKLE +HARDWARE REMOVED [place] [place] History of arterial bypass of lower extremity Left femoral to PT composite bypass graft (06/2020) History of cardiac cath x2, most recent 2016 > no stents (subsequent CABG with AVR in 2015); [facility] History of carpal tunnel release R/L History of colonoscopy History of coronary artery bypass graft CABG x1 + AVR (2015) History of esophagogastroduodenoscopy (EGD) History of myringotomy w/tubes bilat. History of open reduction and internal fixation (ORIF) procedure LLE () History of skin graft Split Thickness Skin Graft of Left Lateral Ankle (11/18/20): LMA#5, atraumatic x1 at [facility] History of tonsillectomy History of tooth extraction History of umbilical hernia repair Hx of cystoscopy w/stent placement; stent then removed Hx of surgical procedure Left Leg Wound Debridement and Irrigation S/P femoral-tibial bypass S/P femoropopliteal bypass surgery Right fem-pop bypass graft (01/19/21): Grade 2 view, MAC 3.0, ETT 8.0 at [facility] S/P insertion of iliac artery stent B/L iliac stent placement (2014) 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 Left transmetatarsal amputation (11/23/21): LMA# 5.0 at [facility]. No issues noted per post-op anesthesia progress note. HX 1 SX TO REMOVE ALL TOES LEFT FOOT NOVEMBER 2021 Family History Brother Family history of diabetes mellitus Sister Family history of diabetes mellitus Mother Family history of diabetes mellitus Grandmother (Maternal) Family history of diabetes mellitus Uncle Family hx of colon cancer Colorectal cancer Father Family history of esophageal cancer Sister Family history of diabetes mellitus Other No family history of adverse response to anesthesia Denies family history of Ovarian cancer Prostate cancer Myocardial infarction Breast cancer Social History Smoking Status: Former smoker Tobacco Type: Cigarettes and Smokeless Tobacco (Dip or Chew) Second Hand Exposure: Yes (as a child); Hx Alcohol Use: No Hx Substance Use: No Preferred Language: Danish Communication Ability: Effective Visual Impairment: Limited Hearing Ability: Hard of Hearing Transportation Superintendent Required: No Beliefs That Will Affect Care: None marital status: Current Living Situation: Other Current Living Situation Comment: Roommate current occupational status: disabled How many Children do You have: 2 How many Children do You have Comment: family assists with care, also is part of the waiver program so the pt's roommate is able to assist with care through this program Other Information That Helps Us Care for You: No Feels Safe at Home: Yes Safety Concerns: Feels Safe At This Time Childhood Exposure to Second-Hand Smoke: Yes Diet Comment: Carb Counts. (2796-1939, roughly), protein drinks caffeine: Yes (coffee, rarely ) during the past year weight has: remained stable Dental Care, Regularly: No Seatbelt Use: always Sunscreen Use: No Gender Identity: Male Assistive Devices: Prosthesis, Slide Board, Walker and Wheelchair Review of Systems Review of Systems: All systems reviewed & are unremarkable except as noted in HPI & below Physical Exam Physical Exam: General: Grossly A&O. NAD. Cooperative. Conversational. Not drowsy. Seen shortly after return from OR. HEENT: Atraumatic, normocephalic. EOMI Pulm: CTAB anteriorly. -wheezes, -rales, -rhonchi. No respiratory distress. Cardiac: RRR, -mrg. No LE edema. Abdominal: Nontender, nondistended, soft. Integ: Right BKA site w/ small closed scab wound. No surrounding erythema. L AKA site has bandage pad applied, clean/dry/intact. Results & Data Results & Data Vital Signs (Past 12 Hours) Vital Signs Temp Pulse Resp BP Pulse Ox O2 Del Method 11/25/22 18:30 76 17 11/25/22 18:00 78 14 11/25/22 17:30 74 18 93 11/25/22 17:00 77 19 112/61 94 11/25/22 16:30 78 18 94 11/25/22 16:04 82 18 95 11/25/22 16:28 78 14 94 Room Air 11/25/22 16:06 83 11/25/22 15:54 37.3 C 83 17 147/67 H 97 Room Air Laboratory Results Cardiac Enzymes 11/25/22 Range/Units 16:24 AST 19 (13-39) U/L Coagulation 11/25/22 Range/Units 16:24 PT 12.4 H (9.0-12.0) Seconds APTT 26.2 (21.0-31.0) Seconds CBC 11/25/22 Range/Units 16:24 WBC 12.76 H (4.8-10.8) K/ul RBC 4.45 L (4.70-6.10) M/uL Hgb 11.6 L (14.0-18.0) g/dl Hct 34.6 L (42.0-52.0) % Plt Count 414 H (130-400) K/uL Neut # (Auto) 9.20 H (1.40-6.50) K/uL Lymph # (Auto) 1.50 (1.2-3.4) K/uL Grainger # (Auto) 1.93 H (0.11-0.59) K/uL Eos # (Auto) 0.04 (0-0.50) K/uL Baso # (Auto) 0.03 (0-0.2) K/uL Comprehensive Metabolic Panel 11/25/22 Range/Units 16:24 Sodium 132 L (136-145) mmol/L Potassium 3.2 L (3.5-5.1) mmol/L Chloride 88 L (98-107) mmol/L Carbon Dioxide 35 H (21-32) mmol/L BUN 16 (6-23) mg/dl Creatinine 0.74 (0.6-1.4) mg/dl Glucose 76 (70-99(Fasting)) mg/dl Calcium 8.8 (8.5-10.1) mg/dl AST 19 (13-39) U/L ALT 9 (7-52) U/L Alkaline Phosphatase 103 (34-104) U/L Total Protein 7.8 (6.0-8.3) gm/dl Albumin 3.2 L (3.4-5.0) gm/dl Intake and Output 11/25/22 11/25/22 11/25/22 06:59 14:59 22:59 Intake Total 1120 / 1120 Balance 1120 / 1120 Intake: IV 1120 / 1120 Piperacillin/Tazobactam 4.5 gm 120 / 120 In 120 ml @ 240 mls/hr IV NOW ONE Rx#:[id number] Sodium Chloride 0.9% 1000ML 1, 1000 / 1000 000 ml @ 999 mls/hr IV .Q1H1M [facility] Rx#:[id number] Other: Weight 78.1 kg Weight Measurement Method Built in [facility] Patient Weight 11/26/22 06:59 Weight 78.1 kg Diagnostic Findings Abdomen/Pelvis CT 11/25/22 16:[address] WITH IV CONTRAST CT DOSE: 329.95 mGy.cm HISTORY: GI bleed. TECHNIQUE: Multiaxial CT images of the abdomen and pelvis were performed following the use of intravenous contrast. A dose lowering technique was utilized adhering to the principles of ALARA. COMPARISON STUDY: Right lower extremity CTA 07/01/2021. Abdomen and pelvis CT 05/04/2021. FINDINGS: A few bibasilar linear densities suggestive of subsegmental atelectasis are scarring. There are poststernotomy changes. An aortic valve prosthesis is partially visualized. No suspicious lytic or blastic osseous lesions. Mild thickening of the gastric antrum is noted. Moderate fecal retention. No evidence for a bowel obstruction. Visualized appendix is unremarkable. The liver, gallbladder, pancreas, and spleen are unremarkable. Bilateral adrenal gland nodules remain unchanged. There is bilateral nephrolithiasis. No ureteral stones. No hydronephrosis. Extensive atherosclerotic plaque within the normal caliber abdominal aorta. The main complaints patent. No retroperitoneal lymphadenopathy. There is a right common iliac artery stent which is patent. Multifocal areas of stenosis within the left iliac arteries and right external iliac artery due to the calcified plaque. There are postoperative changes within the bilateral common femoral arteries. Occluded proximal bilateral superficial femoral artery stents. The prostate gland is mildly enlarged. The bladder is distended with mild gallbladder wall thickening. There is a left perirectal gas and fluid collection which demonstrates left-sided supralevator extension and extends into the left perirectal space. There is asymmetric thickening of the left rectal wall with left perirectal fat stranding/edema. The left perirectal gas and fluid collection measures 6.6 x 2.7 cm. Therefore, this favors a left perirectal a bscess with supra levator extension. A contained left-sided rectal perforation could also have a similar appearance. Therefore, follow-up endoscopy recommended to assess for the possibility of a left-sided rectal mass. IMPRESSION: 1. There is a left perirectal gas and fluid collection which demonstrates left- sided supralevator extension and extends into the left perirectal space. There is asymmetric thickening of the left rectal wall with left perirectal fat stranding/edema. The left perirectal gas and fluid collection measures 6.6 x 2.7 cm. Therefore, this favors a left perirectal abscess with supra levator extension. A contained left-sided rectal perforation could also have a similar appearance. Therefore, follow-up endoscopy recommended to assess for the possibility of a left-sided rectal mass. 2. Mild nonspecific thickening at the gastric antrum. This may represent a gastritis or ulcerative disease. Consider follow-up endoscopy. 3. No evidence for bowel obstruction. 4. Bilateral nephrolithiasis. No hydronephrosis. 5. Additional findings as described above. ACT 112: Negative or not required by law. Electronically signed by: Otf Avila M.D. 11/25/2022 5:52 PM ECG Additional Comments: 11/25/22 ecg unchanged from that of 07/19/22. prolonged qtc 490. RBBB (not new). Code Status & VTE Plan Code Status full VTE Prophylaxis Plan VTE Prophylaxis will be ordered: Yes Supervising Physician Co-Signing Physician Notes Attending addendum: I have physically seen this patient, have supervised the medical residents activities, and agree with the H&P unless as otherwise noted. Assessment and Plan: Perirectal abscess- Seen after OR drainage Follow culture and sensitivities Empiric Zosyn 4.5 g IV every [address] Hawley to continue to see Wound care nurse Diabetes mellitus- Placed on Accu-Cheks with NovoLog SSI coverage COPD- Duonebs every 4 hours while awake and every 2 hours when necessary. Every 4 hours as needed CAD/status post CABG/hypertension/aortic stenosis/status post AVR 2015- Continue clopidogrel 75 mg daily and aspirin 81 mg daily On chlorthalidone, which is likely responsible for hyponatremia and hypokalemia Repeat laboratories in a.m. and adjust dosing as needed Hypothyroidism- Continue levothyroxine 175 mcg daily GERD- CT suggestive of possible gastric ulcer or gastritis Patient without significant symptoms, monitor Continue pantoprazole Remaining orders and notations as noted Resident Activity Tracking Resident Involvement: Resident Care Provided Care Provided: Adult Hospital Medicine (8) CAD (coronary artery disease) Associated angina: without angina Coronary Disease-Associated Artery/Lesion type: [place] artery [place] vs. transplanted heart: [place] heart Qualified Code(s): I25.10 - Atherosclerotic heart disease of [place] coronary artery without angina pectoris (10) Hypothyroidism Hypothyroidism type: unspecified Qualified Code(s): E03.9 - Hypothyroidism, unspecified (11) Hypertension Hypertension type: unspecified Qualified Code(s): I10 - Essential (primary) hypertension
[2022-11-25] MEDS ORDERED: GLUCAGON FOR INJ 1 MG VIAL SQ PRN (20:44)
[2022-11-25] MEDS ORDERED: GLUCOSE 40% GEL 15 GM TUBE PO PRN (20:44)
[2022-11-25] MEDS ORDERED: DEXTROSE 50% 50 ML SYRINGE IV PRN (20:44)
[2022-11-25] MEDS ORDERED: GLUCOSE 10 TAB/TUBE PO PRN (20:44)
[2022-11-25] MEDS ORDERED: ATROPINE SULFATE 0.1 MG/ML 10ML SYR IV PRN (20:50)
[2022-11-25] MEDS ORDERED: ePHEDrine sulfate 50 MG/ML AMP IV PRN (20:50)
[2022-11-25] MEDS ORDERED: ONDANSETRON INJ 2 MG/ML 2 ML VIAL IV PRN (20:50)
[2022-11-25] MEDS ORDERED: fentaNYL citrate PF 100 MCG/2 ML VIAL IV PRN (20:50)
[2022-11-25] MEDS ORDERED: PROMETHAZINE HCL 6.25 MG in SODIUM CHLORIDE 0.9% 50 ML IV PRN (20:50)
--- NOTE | 2022-11-25 20:50 | Anesthesiology Consultation ---
Date of Service November 25, 2022 Assessment & Plan Chart Review Chart Review: Acceptable Risk for Surgery and Patient NOT seen in Pre Admission Testing Consults Requested none ASA ASA4 Proposed Anesthesia Anesthesia Type: General Risk / Benefits Reviewed With: PT / POA / Parent / Guardian, Accepts Plan and Informed Consent Obtained History Surgery Operation Date: 11/25/22 20:05 Proposed Procedures p incision and drainage bonifacio rectal abscess - Klever Hawley MD Height/Weight Height: 5 ft 8 in Weight: 78.1 kg Allergies Allergy/AdvReac Type Severity Reaction Status Date / Time No Known Allergies Allergy Unknown Verified 11/25/22 18:46 Medications Home Medications Medication Instructions Recorded Confirmed Last Taken aspirin 81 mg tablet,delayed 81 mg PO QAM 05/04/21 11/25/22 11/25/22 release (Mohit Low Dose Aspirin) ferrous sulfate 325 mg (65 mg 325 mg PO BID #60 tabs 08/03/21 11/25/22 11/25/22 08:00 iron) tablet,delayed release lactobacillus combination no.9 4 4,000 mmu cells PO QAM 08/04/21 11/25/22 11/25/22 billion cell capsule (Adult 50 Plus Probiotic) atorvastatin 80 mg tablet (Lipitor) 80 mg PO HS #90 tabs 11/15/21 11/25/22 11/24/22 docusate sodium 100 mg capsule 100 mg PO DIRECTED PRN 01/04/22 11/25/22 06/16/22 (Colace) Constipation chlorthalidone 25 mg tablet 25 mg PO QAM #90 tabs 05/20/22 11/25/22 11/25/22 folic acid 1 mg tablet 1 mg PO QAM #30 tabs 06/23/22 11/25/22 11/25/22 levothyroxine 175 mcg tablet 175 mcg PO QAM #90 tabs 07/01/22 11/25/22 11/25/22 (Synthroid) magnesium oxide 400 mg (241.3 mg 400 mg PO QAM #30 tabs 07/07/22 11/25/22 11/25/22 magnesium) tablet acetaminophen 500 mg tablet 1,000 mg PO Q8 PRN Pain 07/18/22 11/25/22 Unknown (Tylenol Extra Strength) nystatin 100,000 unit/gram topical 1 applic topical BID PRN Skin 07/18/22 Unknown powder Irritation oxycodone 5 mg tablet 5 - 10 mg PO Q4 PRN pain #30 tabs 07/22/22 11/25/22 Unknown tramadol 50 mg tablet 50 - 100 mg PO Q6H PRN pain #20 07/22/22 11/25/22 Unknown tabs metoprolol tartrate 25 mg tablet 12.5 mg PO BID #90 tabs 08/08/22 11/25/22 11/25/22 08:00 potassium chloride 20 mEq 20 meq PO BID #60 tabs 08/08/22 11/25/22 11/25/22 08:00 tablet,extended release calcitriol 0.25 mcg capsule 0.25 mcg PO QAM #30 caps 08/19/22 11/25/22 11/25/22 (Rocaltrol) clopidogrel 75 mg tablet (Plavix) 75 mg PO QAM #30 tabs 08/19/22 11/25/22 11/25/22 polyethylene glycol 3350 17 17 g PO DAILY 08/23/22 11/25/22 11/25/22 gram/dose oral powder (Miralax) pantoprazole 40 mg tablet,delayed 40 mg PO UD PRN Acid Reflux #90 10/28/22 11/25/22 Unknown release (Protonix) tabs ezetimibe 10 mg tablet 10 mg PO DAILY #30 tabs 11/14/22 11/25/22 11/25/22 insulin aspart U-100 100 unit/mL 0 unit continuous subcutaneous 11/25/22 11/25/22 Unknown subcutaneous solution (Novolog infusion DAILY U-100 Insulin aspart) menthol 0.44 %-zinc oxide 20.6 % 1 applic EXT TID 11/25/22 11/25/22 11/25/22 08:00 topical ointment (Calmoseptine) zinc oxide 16 % topical ointment 1 applic EXT TID 11/25/22 11/25/22 11/25/22 08:00 (Boudreauxs Butt Paste) NPO Date Last Intake of Fluids: 11/25/22 Time Last Intake of Fluids: 13:00 Date Last Intake of Solids: 11/25/22 Time Last Intake of Solids: 13:00 Past Medical History Medical History (Updated 11/25/22 @ 20:17 by Klever Hawley MD) Anemia Below-knee amputation of right lower extremity Candidal diaper rash Clostridium difficile colitis DVT prophylaxis Folate deficiency GERD (gastroesophageal reflux disease) History of Clostridium difficile infection s/p treatment (2020) History of colon polyps 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) Hx MRSA infection 01/2022 (left heel) Exercise / Class Metabolic Activity II 4-5 Yardwork/Stairs/Walk up hill Past Family History Family History Brother Family history of diabetes mellitus Sister Family history of diabetes mellitus Mother Family history of diabetes mellitus Grandmother (Maternal) Family history of diabetes mellitus Uncle Family hx of colon cancer Colorectal cancer Father Family history of esophageal cancer Sister Family history of diabetes mellitus Other No family history of adverse response to anesthesia Denies family history of Ovarian cancer Prostate cancer Myocardial infarction Breast cancer Past Surgical History Surgical History (Updated 10/21/22 @ 17:05 by Pablo Barros MD) Below-knee amputation of right lower extremity H/O cataract extraction R/L H/O endarterectomy R common femoral (11/2018) H/O vascular surgery Right Femoral to Posterior tibial Prosthetic Bypass Graft(Right) History of ankle surgery LEFT ANKLE +HARDWARE REMOVED History of aortic valve replacement 2016 ([facility] [place] History of arterial bypass of lower extremity Left femoral to PT composite bypass graft (06/2020) History of cardiac cath x2, most recent 2016 > no stents (subsequent CABG with AVR in 2016); [facility] History of carpal tunnel release R/L History of colonoscopy History of coronary artery bypass graft CABG x1 + AVR (2016) History of esophagogastroduodenoscopy (EGD) History of myringotomy w/tubes bilat. History of open reduction and internal fixation (ORIF) procedure LLE () History of skin graft Split Thickness Skin Graft of Left Lateral Ankle (11/18/20): LMA#5, atraumatic x1 at [facility] History of tonsillectomy History of tooth extraction History of umbilical hernia repair Hx of cystoscopy w/stent placement; stent then removed Hx of surgical procedure Left Leg Wound Debridement and Irrigation S/P femoral-tibial bypass S/P femoropopliteal bypass surgery Right fem-pop bypass graft (01/19/21): Grade 2 view, MAC 3.0, ETT 8.0 at [facility] S/P insertion of iliac artery stent B/L iliac stent placement (2014) 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 Left transmetatarsal amputation (11/23/21): LMA# 5.0 at [facility]. No issues noted per post-op anesthesia progress note. HX 1 SX TO REMOVE ALL TOES LEFT FOOT NOVEMBER 2021 Past Anesthesia History No Hx of Anesthesia Complications and No Family Hx of Anesthesia Complications History of PONV No Hx of PONV and No Hx of Motion Sickness Social History Smoking Status: Former smoker tobacco type: cigarettes Hx Alcohol Use: No Alcohol type: beer alcohol intake frequency: holidays/special occasions only Hx Substance Use: No substance use type: does not use Physical Exam Vital Signs Last Vital Signs Temp 37.3 C 11/25/22 15:54 Pulse 82 11/25/22 20:34 Resp 18 11/25/22 20:34 BP 135/63 11/25/22 20:34 Pulse Ox 95 11/25/22 20:34 O2 Del Method Room Air 11/25/22 20:34 ENMT Mouth: + edentulous Thyromental Distance: > or= 3.5 Finger Breadths Mallampati Class: II Neck normal visual inspection Respiratory normal respiratory effort Auscultation: lungs clear to auscultation bilaterally Cardiovascular Rate/Rhythm: regular rate and regular rhythm Musculoskeletal Extremities: + amputation noted (Left AKA, Right BKA) Psychiatric Orientation: alert Testing Laboratory Results 11/25/22 16:24 11/25/22 16:24 PT 12.4 Seconds (9.0-12.0) H 11/25/22 16:24 INR 1.2 (0.9-1.1) H 11/25/22 16:24 APTT 26.2 Seconds (21.0-31.0) 11/25/22 16:24 Blood Type A Positive 11/25/22 16:37 Antibody Screen NEGATIVE 11/25/22 16:37
[2022-11-25] MEDS ORDERED: fentaNYL citrate PF 100 MCG/2 ML VIAL ONE (20:53)
[2022-11-25] MEDS ORDERED: LIDOCAINE 2% MPF LOCAL 5 ML VIAL INFIL ONE (21:24)
[2022-11-25] MEDS ORDERED: SUCCINYLCHOLINE CHLORIDE 20 MG/ML 10 ML VIAL IV ONE (21:24)
[2022-11-25] MEDS ORDERED: ONDANSETRON INJ 2 MG/ML 2 ML VIAL ONE (21:24)
[2022-11-25] MEDS ORDERED: PROPOFOL IV EMULSION 10 MG/ML 20 ML VIAL IV ONE (21:24)
[2022-11-25] MEDS ORDERED: PHENYLEPHRINE HCL 10 MG/ML VIAL ONE (21:26)
--- NOTE | 2022-11-25 21:33 | Post Operative Brief Note ---
Immediate Post Op Note v1 Date of Surgery November 25, 2022 Pre & Post Diagnosis Operation Date: 11/25/22 20:05 Pre-Op Diagnosis: perirectal abscess Post-Op Diagnosis: perirectal abscess I identified the patient and participated in the time-out.: Yes Procedure Operation Date: 11/25/22 20:05 Actual Procedures p incision and drainage bonifacio rectal abscess(Not Applicable) - Klever Hawley MD Surgeon Klever Hawley MD Chairperson Anesthesiology certified surgical technologist Estimated Blood Loss 5 Findings Consistent with Post-Op Diagnosis large perirectal abscess, Fluids 500ml Drains Other (michael drainage tube, and packing the wound with kerlex) Complications none Disposition Accompanied Patient To Recovery: Yes
--- NOTE | 2022-11-25 21:46 | Anesthesiology Progress Note ---
Date of Service November 25, 2022 Anesthesia Post Procedure Vital Signs Vital Signs: Temp Pulse Resp BP Pulse Ox O2 Del Method 11/25/22 20:34 82 18 135/63 95 Room Air 11/25/22 18:30 76 17 11/25/22 18:00 78 14 11/25/22 17:30 74 18 93 11/25/22 17:00 77 19 112/61 94 11/25/22 16:30 78 18 94 11/25/22 16:04 82 18 95 11/25/22 16:28 78 14 94 Room Air 11/25/22 16:06 83 11/25/22 15:54 37.3 C 83 17 147/67 H 97 Room Air Pain Intensity Sacrum: Pain Intensity: 3 Transfer of Care Handoff Completed per policy Notes Mental Status: alert / awake / arousable Patient Amnestic to Procedure: Yes Nausea / Vomiting: adequately controlled Pain: adequately controlled Airway Patency, RR, SpO2: stable & adequate BP & HR: stable & adequate Hydration State: stable & adequate Anesthetic Complications: no major complications apparent
--- NOTE | 2022-11-25 22:43 | Operative Report (OR) ---
DATE OF PROCEDURE: 11/25/2022. PREOPERATIVE DIAGNOSIS: Perirectal abscess. POSTOPERATIVE DIAGNOSIS: Perirectal abscess. OPERATION: Incision and drainage of perirectal abscess. SURGEON: Klever Hawley MD ANESTHESIA: General. ESTIMATED BLOOD LOSS: About 5 mL. FINDINGS: Perirectal abscess. COMPLICATIONS: None. INDICATIONS FOR THE PROCEDURE: This is a 67-year-old gentleman who presented to the ED with 3 week history of rectal bleeding, rectal pain, and the patient had a CT scan diagnosis of perirectal abscess. I recommended to do incision and drainage of perirectal abscess. I did talk to the patient about the benefits, risks, alternate procedures. I indicated the risks may include, but not limited to, such as bleeding, infection, sepsis, DVT, myocardial infarction, even . The patient understood. He agreed to proceed with the procedure. He signed informed consent and I answered all questions. DETAILS OF PROCEDURE: After we identified the patient and verified the procedure, we brought in the patient to the OR, put the patient in the supine position on the OR table. The patient received 3.375 grams Zosyn IV for prophylactic antibiotic and the patient received general anesthesia without difficulty and then we put the patient in the lithotomy position. The rectal area was prepped and draped in routine sterile fashion. After timeout, I injected the local anesthesia by using 1% lidocaine mixed with 0.5% Marcaine on the left side rectal area. I then made a 2 cm incision, immediately a lot of pus came out and we sent a wound culture. Once we cleaned up all the large perirectal abscess cavity, we used normal saline and flushed the cavity and hemostasis obtained. We then put a 1/4-inch [place] to drain the abscess, used 3-0 nylon to suture the Duarte on the skin, and also I used 1/4-inch Kerlix for packing the abscess. No active bleeding. At this moment also, I did digital rectal exam. I could not feel any rectal mass at this moment. No active rectal bleeding at this moment also. So we put the dressing on. The patient tolerated the procedure well. All the instrument, needle and sponge counts were correct x2 at the end of the case. The patient was transferred to recovery room in stable condition. After the procedure, I did talk to the patient and the patient's family member about the OR finding and the procedure we did, they understand. Job ID: [id number] MTDD
[2022-11-25] MEDS ORDERED: oxyCODONE HCL IR 5 MG TAB (IMMEDIATE RELEASE) PO PRN (22:50)
[2022-11-25] MEDS ORDERED: ACETAMINOPHEN 500 MG TAB PO PRN (22:50)
[2022-11-25] MEDS ORDERED: traMADol HCL 50 MG TABLET PO PRN (22:50)
[2022-11-25] MEDS ORDERED: NYSTATIN POWDER 15GM BTL EXT PRN (22:50)
[2022-11-26] MEDS ORDERED: ATORVASTATIN 40 MG TAB PO ONE (00:06)
[2022-11-26] MEDS: PIPERACILLIN/TAZOBACTAM 3.375 GM in DEXTROSE 5% 100 ML IV SCH ×3 (00:07→15:37)
[2022-11-26] MEDS: ACETAMINOPHEN 325 MG TAB PO PRN (00:07)
[2022-11-26] MEDS: LEVOTHYROXINE SODIUM 175 MCG TABLET PO SCH (04:45)
[2022-11-26] MEDS: oxyCODONE/ACETAMINOPHEN 5mg/325mg TAB PO PRN ×3 (04:45→19:51)
[2022-11-26 06:19] LABS: Albumin Globulin Ratio 0.7 (0.9-2); Albumin Level 2.9 gm/dl (3.4-5.0); BUN Creatinine Ratio 15.6 (10-20); Bilirubin,Total 0.8 mg/dl (0.2-1.0); Calcium 8.1 mg/dl (8.5-10.1); Creatinine Clr Calc Pharmacy 92.5 ml/min; Est GFR (African American) 110.4 ml/min; Est GFR (Non-African American) 95.2 ml/min; Magnesium 1.7 mg/dl (1.7-2.4); Potassium 2.9 mmol/L (3.5-5.1); Total Protein 6.9 gm/dl (6.0-8.3)
[2022-11-26 06:26] LABS: Basophils # (auto) 0.05 K/uL (0-0.2); Basophils % (auto) 0.5 %; Eosinophils # (auto) 0.09 K/uL (0-0.50); Eosinophils % (auto) 0.8 %; Hematocrit (blood only) 34.3 % (42.0-52.0); Hemoglobin 11.2 g/dl (14.0-18.0); Immature Granulocytes # (auto) 0.05 K/uL (0.01-0.20); Immature Granulocytes % (auto) 0.5 %; Lymphocytes # (auto) 1.13 K/uL (1.2-3.4); Lymphocytes % (auto) 10.5 %; Mean Corpuscular Hemoglobin 25.9 pg (25.0-34.0); Mean Corpuscular Hgb Conc 32.7 g/dL (32.0-36.0); Mean Corpuscular Volume 79.2 fL (80.0-100.0); Monocytes # (auto) 1.43 K/uL (0.11-0.59); Monocytes % (auto) 13.2 %; Neutrophils # (auto) 8.06 K/uL (1.40-6.50); Neutrophils % (auto) 74.5 %; Platelet Count 378 K/uL (130-400); RDW Coefficient of Variation 15.7 % (11.5-14.5); RDW Standard Deviation 44.8 fL (36.4-46.3); Red Blood Count 4.33 M/uL (4.70-6.10); White Blood Count 10.81 K/ul (4.8-10.8)
[2022-11-26 07:30] LABS: Adenovirus F 40/41 PCR Not Detected (NotDetected); Astrovirus PCR Not Detected (NotDetected); Campylobacter PCR Not Detected (NotDetected); Cryptosporidium PCR Not Detected (NotDetected); Cyclospora cayetanensis PCR Not Detected (NotDetected); Entamoeba histolytica PCR Not Detected (NotDetected); Enteroaggregative E.coli(EAEC) Not Detected (NotDetected); Enteropathogenic E.coli (EPEC) Not Detected (NotDetected); Enterotoxigenic E.coli (ETEC) Not Detected (NotDetected); Giardia lamblia PCR Not Detected (NotDetected); Norovirus GI/GII PCR Not Detected (NotDetected); Plesiomonas shigelloides PCR Not Detected (NotDetected); Rotavirus A PCR Not Detected (NotDetected); Salmonella PCR Not Detected (NotDetected); Sapovirus PCR Not Detected (NotDetected); Shiga-like Toxin E.coli (STEC) Not Detected (NotDetected); Shigella/Enteroinvasive E.coli Not Detected (NotDetected); Vibrio cholerae PCR Not Detected (NotDetected); Vibrio species PCR Not Detected (NotDetected); Yersinia enterocolitica PCR Not Detected (NotDetected)
--- NOTE | 2022-11-26 07:32 | Electrocardiogram Report ---
Test Reason : Blood Pressure : / mmHG Vent. Rate : 080 BPM Atrial Rate : 080 BPM P-R Int : 178 ms QRS Dur : 150 ms QT Int : 444 ms P-R-T Axes : 052 -38 019 degrees QTc Int : 512 ms Poor data quality, interpretation may be adversely affected Normal sinus rhythm Possible Left atrial enlargement Left axis deviation Right bundle branch block possible Inferior infarct (cited on or before 19-JUL-2022) Abnormal ECG When compared with ECG of 19-JUL-2022 09:12, No significant change was found Confirmed by Juni Mahoney ([id number]) on 11/26/2022 7:31:30 AM Referred By: REFERRED SELF Confirmed By:Alexei Mahoney
--- NOTE | 2022-11-26 07:38 | Electrocardiogram Report ---
Test Reason : Blood Pressure : / mmHG Vent. Rate : 077 BPM Atrial Rate : 077 BPM P-R Int : 170 ms QRS Dur : 154 ms QT Int : 434 ms P-R-T Axes : 059 048 100 degrees QTc Int : 491 ms Sinus rhythm with Premature atrial complexes Right bundle branch block Abnormal ECG When compared with ECG of 25-NOV-2022 16:18, (unconfirmed) Premature atrial complexes are now Present QRS axis Shifted right Confirmed by Juni Mahoney ([id number]) on 11/26/2022 7:38:27 AM Referred By: REFERRED SELF Confirmed By:Alexei Mahoney
[2022-11-26] MEDS: BUTT PASTE (ZINC OXIDE 16%) 171 APPLN/57 GM JAR EXT SCH ×3 (08:09→21:29)
[2022-11-26] MEDS: POLYETHYLENE (MIRALAX) 17 GM PACK PO SCH (08:10)
[2022-11-26] MEDS: MENTHOL-ZINC OXIDE 360 APPLN/120 GM TUBE EXT SCH ×3 (08:11→21:29)
[2022-11-26] MEDS: POTASSIUM CHLORIDE CRTAB 20 MEQ TABCR PO SCH ×2 (08:11→21:25)
[2022-11-26] MEDS: CALCITRIOL 0.25 MCG CAPSULE PO SCH (08:11)
[2022-11-26] MEDS: CHLORTHALIDONE 25 MG TAB PO SCH (08:12)
[2022-11-26] MEDS: CLOPIDOGREL BISULFATE 75 MG TAB PO SCH (08:12)
[2022-11-26] MEDS: ASPIRIN 81 MG ECTAB PO SCH (08:12)
[2022-11-26] MEDS: MAGNESIUM OXIDE 400 MG TAB PO SCH (08:13)
[2022-11-26] MEDS: METOPROLOL TARTRATE 25 MG TAB PO SCH ×2 (08:13→21:26)
[2022-11-26] MEDS: EZETIMIBE 10 MG TABLET PO SCH (08:13)
[2022-11-26] MEDS: FOLIC ACID 1 MG TAB PO SCH (08:13)
[2022-11-26] MEDS: ADVANCED PROBIOTIC 1250 MG CAPSULE PO SCH (08:13)
[2022-11-26] MEDS: FERROUS SULFATE 325 MG TAB PO SCH ×2 (08:13→21:25)
[2022-11-26] MEDS ORDERED: POTASSIUM CHLORIDE 20 MEQ/15 ML UDC PO STA (08:40)
--- NOTE | 2022-11-26 12:14 | Hospitalist Progress Note ---
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 -Appreciate gen surgery and wound care (2) Rectal bleeding: Plan: Most likely secondary to the perirectal abscess. (3) Fever: Plan: 2/2 abscess vs postop. prn Tylenol. Will order blood cultures (already received abx). Wound cultures pending. No fevers overnight (4) Type I diabetes mellitus, uncontrolled: Plan: Patient to use home pump. Check glucometer achs. Hypoglycemia protocol ordered. 11/04/22 A1c was 7.7. Patient's pump settings unknown. Reviewed last endocrine note (10/2022) and last hospital admission (08/2022). DM educator consulted for assistance in obtaining CGM and checking insulin pump settings. (5) Gastric wall thickening: Plan: Mild nonspecific thickening at gastric antrum per CT abd. Consider outpatient EGD. (6) Stage III pressure ulcer: Plan: Hx of. Routine wound care. (7) COPD (chronic obstructive pulmonary disease): Plan: Not on inhalers. (8) CAD (coronary artery disease): Plan: s/p CABGx1. Continue home Plavix and baby ASA. (9) Aortic stenosis: Plan: s/p aortic valve replacement in 2016 ([facility] [place]). (10) Hypothyroidism: Plan: Continue home levothyroxine 175mcg. (11) Hypertension: Plan: Continue home chlorthalidone. (12) Dyslipidemia: Plan: Continue home atorvastatin 80 and ezetimibe. (13) Below-knee amputation of right lower extremity: Plan: Small scab wound noted. Routine wound care. (14) Above knee amputation of left lower extremity: Plan: Noted. Does not yet have prosthesis for. Per outpatient wound care notes, has nonhealing surgical of site. Plan DM1 diet. dvt ppx: no chemoppx postop; defer to gen surg full code, discussed with patient med tele Admission and Anticipated Discharge Date Admission Date: November 25, 2022 Subjective patient seen and examined, says the pressure is better, although still has some rectal pain Review of Systems Review of Systems: All systems reviewed are negative, apart from the ones contained in the history. Physical Exam Physical Exam: The patient is awake, alert and oriented 3, well developed and well nourished, normocephalic and atraumatic, lying in bed and in no acute distress. HEENT--PERRL, EOMI, mucous membranes and oropharynx mildly dry Neck--supple. No JVD. No bruits. Thyroid normal, trachea midline, no adenopat hy. Heart--normal S1 and S2. No murmurs, rubs or gallops. Lungs--clear bilaterally, no respiratory distress, no accessory muscle use. Abdomen--normal bowel sounds and soft. Mild epigastric and left sided abdominal pain Extremities--Left AKA, right BKA Dermatologic--normal skin turgor, normal color, no abnormal lymph nodes, no rash. Neurologic--cranial nerves II through XII grossly intact. Rheumatologic--normal range of motion. Psychiatric--normal affect. Results & Data Results & Data Vital Signs (Past 12 Hours) Vital Signs Temp Pulse Pulse Resp BP Pulse Ox O2 Del Method 11/26/22 07:40 Room Air 11/26/22 07:49 70 11/26/22 07:54 99.5 F 74 16 147/74 H 94 Room Air 11/26/22 03:55 98.8 F 74 14 132/74 94 Room Air 11/26/22 03:36 76 11/26/22 02:10 99.0 F 73 16 122/71 95 Room Air 11/26/22 01:10 99.5 F 77 16 99/63 L 95 Room Air 11/26/22 00:10 99.7 F H 79 16 97/60 L 94 Room Air PG Care Time/CCT Total # of Minutes Spent Total Time Spent with Patient: Total time spent is greater than 50% in coordination of care (as documented) at patient's floor/unit and/or counseling patient: Coding Level of Care Code 45434 SUB INP/OBS CARE 2/35MIN Diagnoses Perirectal abscess K61.1 Rectal bleeding K62.5 Fever R50.9 Type I diabetes mellitus, uncontrolled Gastric wall thickening K31.89 Stage III pressure ulcer L89.93 COPD (chronic obstructive pulmonary disease) J44.9 CAD (coronary artery disease) I25.10 Coronary Disease-Associated Artery/Lesion type: [place] artery [place] vs. transplanted heart: [place] heart Associated angina: without angina Aortic stenosis I35.0 Hypothyroidism E03.9 Hypothyroidism type: unspecified Hypertension I10 Hypertension type: unspecified Dyslipidemia E78.5 Below-knee amputation of right lower extremity S88.111A Above knee amputation of left lower extremity S78.112A Time Spent (min) 35 (8) CAD (coronary artery disease) Coronary Disease-Associated Artery/Lesion type: [place] artery [place] vs. transplanted heart: [place] heart Associated angina: without angina Qualified Code(s): I25.10 - Atherosclerotic heart disease of [place] coronary artery without angina pectoris (10) Hypothyroidism Hypothyroidism type: unspecified Qualified Code(s): E03.9 - Hypothyroidism, unspecified (11) Hypertension Hypertension type: unspecified Qualified Code(s): I10 - Essential (primary) hypertension
--- NOTE | 2022-11-26 12:46 | Surgery Progress Note ---
Date of Service November 26, 2022 Assessment & Plan (1) Marychuy-rectal abscess: Plan: pt is a 67 year-old male who presents to ER with 3 weeks history rectal bleeding and pain, IMP: perirectal abscess, Plan, base on H/P, labs and CT scan finding- I recommend to do I/D perirectal abscess, D/W benefits, risk sand alternatives of the surgery, the risks - infection, bleeding, sepsis, [place],DVT, , pt and his and daughter understood, they agreed with surgery, pt signed informed consent, I answered all questions, pre-op iv antibiotic. 11/26/2022 12:[address] Hawley F/U S/P I/D perirectal abscess, POD 1 doing fine, continue iv antibiotic, out-patient colonoscopy to R/O rectal rupture caused perirectal abscess or rectal mass. I update about OR finding and the procedure pt had, pt understood, I answered all questions, case manage consult , january D/C home tomorrow, F/U [facility] wound care center, F/U fl 2 weeks, Admission and Anticipated Discharge Date Admission Date: November 25, 2022 Subjective patient seen and examined, says the pressure is better, although still has some rectal pain 11/26/2022 12:[address] Hawley F/U S/P I/D perirectal abscess, POD 1 pt is doing fine, no significant incision pain, no fever, wound culture- Many WBCs Seen Many Gram Positive Cocci Moderate Gram Positive Bacilli Moderate Gram Negative Bacilli Review of Systems Constitutional: as per Subjective / HPI Eyes: as per Subjective / HPI Respiratory: COPD Cardiovascular: Additional Comments: CAD, aortic stenosis Gastrointestinal: colonoscopy last year, remove polyp, rectal abscess Genitourinary: + problem reported (kidney stone) Physical Exam Constitutional: WD/WN, vitals as above Eyes: PERRL, conjunctivae normal, anicteric sclerae Neck: trachea midline, no thyromegaly Respiratory: normal respiratory effort, lungs clear to auscultation Cardiovascular: RRR, no murmur, no edema Gastrointestinal (Abdomen): soft, NT, ND, BS +, the wound some drainage, no active bleeding, Neurologic: patellar DTR's 2+ bilat, sensation intact Psychiatric: A+Ox3, euthymic affect Results & Data Vital Signs (Past 12 Hours) Vital Signs Temp Pulse Pulse Resp BP Pulse Ox O2 Del Method 11/26/22 07:40 Room Air 11/26/22 07:49 70 11/26/22 07:54 37.5 C 74 16 147/74 H 94 Room Air 11/26/22 03:55 37.1 C 74 14 132/74 94 Room Air 11/26/22 03:36 76 11/26/22 02:10 37.2 C 73 16 122/71 95 Room Air 11/26/22 01:10 37.5 C 77 16 99/63 L 95 Room Air Laboratory Results Abnormal lab results 11/25/22 11/25/22 11/25/22 Range/Units 16:24 16:24 16:24 WBC 12.76 H (4.8-10.8) K/ul RBC 4.45 L (4.70-6.10) M/uL Hgb 11.6 L (14.0-18.0) g/dl Hct 34.6 L (42.0-52.0) % MCV 77.8 L (80.0-100.0) fL RDW Coeff of Chan 15.6 H (11.5-14.5) % Plt Count 414 H (130-400) K/uL MPV 9.2 L (9.4-12.4) fL Neut # (Auto) 9.20 H (1.40-6.50) K/uL Lymph # (Auto) (1.2-3.4) K/uL [place] # (Auto) 1.93 H (0.11-0.59) K/uL PT 12.4 H (9.0-12.0) Seconds INR 1.2 H (0.9-1.1) Sodium 132 L (136-145) mmol/L Potassium 3.2 L (3.5-5.1) mmol/L Chloride 88 L (98-107) mmol/L Carbon Dioxide 35 H (21-32) mmol/L BUN/Creatinine Ratio 21.6 H (10-20) POC Glucose (70-99) mg/dl Calcium (8.5-10.1) mg/dl Albumin 3.2 L (3.4-5.0) gm/dl Globulin 4.6 H (2.5-4.0) gm/dl Albumin/Globulin Ratio 0.7 L (0.9-2) 11/26/22 11/26/22 11/26/22 Range/Units 05:49 05:49 11:40 WBC 10.81 H (4.8-10.8) K/ul RBC 4.33 L (4.70-6.10) M/uL Hgb 11.2 L (14.0-18.0) g/dl Hct 34.3 L (42.0-52.0) % MCV 79.2 L (80.0-100.0) fL RDW Coeff of Chan 15.7 H (11.5-14.5) % Plt Count (130-400) K/uL MPV 9.0 L (9.4-12.4) fL Neut # (Auto) 8.06 H (1.40-6.50) K/uL Lymph # (Auto) 1.13 L (1.2-3.4) K/uL [place] # (Auto) 1.43 H (0.11-0.59) K/uL PT (9.0-12.0) Seconds INR (0.9-1.1) Sodium 134 L (136-145) mmol/L Potassium 2.9 L (3.5-5.1) mmol/L Chloride 92 L (98-107) mmol/L Carbon Dioxide 34 H (21-32) mmol/L BUN/Creatinine Ratio (10-20) POC Glucose 240 H (70-99) mg/dl Calcium 8.1 L (8.5-10.1) mg/dl Albumin 2.9 L (3.4-5.0) gm/dl Globulin (2.5-4.0) gm/dl Albumin/Globulin Ratio 0.7 L (0.9-2)
[2022-11-26] MEDS: CARBOHYDRATES FOR HYPOGLYCEMIA PO PRN ×2 (18:59→19:19)
[2022-11-26] MEDS: ATORVASTATIN 40 MG TAB PO SCH (21:25)
--- NOTE | 2022-11-26 23:57 | Billing Data ---
Date of Service November 26, 2022 Coding Level of Care Code 40166 INT INP/OBS CARE
[2022-11-27] MEDS: PIPERACILLIN/TAZOBACTAM 3.375 GM in DEXTROSE 5% 100 ML IV SCH ×3 (00:38→15:50)
[2022-11-27 05:58] LABS: Hematocrit (blood only) 32.2 % (42.0-52.0); Hemoglobin 10.4 g/dl (14.0-18.0); Mean Corpuscular Hgb Conc 32.3 g/dL (32.0-36.0); Mean Corpuscular Volume 80.5 fL (80.0-100.0); Mean Platelet Volume 8.9 fL (9.4-12.4); Platelet Count 341 K/uL (130-400); RDW Coefficient of Variation 14.7 % (11.5-14.5); RDW Standard Deviation 43.6 fL (36.4-46.3); White Blood Count 8.39 K/ul (4.8-10.8)
[2022-11-27] MEDS: LEVOTHYROXINE SODIUM 175 MCG TABLET PO SCH (05:59)
[2022-11-27 06:10] LABS: BUN Creatinine Ratio 16.2 (10-20); Creatinine Clr Calc Pharmacy 104.8 ml/min; Est GFR (African American) 116.2 ml/min; Est GFR (Non-African American) 100.2 ml/min; Potassium 3.4 mmol/L (3.5-5.1)
[2022-11-27] MEDS: oxyCODONE/ACETAMINOPHEN 5mg/325mg TAB PO PRN ×3 (07:40→23:24)
[2022-11-27] MEDS: POTASSIUM CHLORIDE CRTAB 20 MEQ TABCR PO SCH ×2 (08:27→21:39)
[2022-11-27] MEDS: FERROUS SULFATE 325 MG TAB PO SCH ×2 (08:28→21:39)
[2022-11-27] MEDS: METOPROLOL TARTRATE 25 MG TAB PO SCH ×2 (08:28→21:40)
[2022-11-27] MEDS: CALCITRIOL 0.25 MCG CAPSULE PO SCH (08:29)
[2022-11-27] MEDS: ASPIRIN 81 MG ECTAB PO SCH (08:29)
[2022-11-27] MEDS: POLYETHYLENE (MIRALAX) 17 GM PACK PO SCH ×2 (08:29→09:03)
[2022-11-27] MEDS: ADVANCED PROBIOTIC 1250 MG CAPSULE PO SCH (08:29)
[2022-11-27] MEDS: MAGNESIUM OXIDE 400 MG TAB PO SCH (08:29)
[2022-11-27] MEDS: CHLORTHALIDONE 25 MG TAB PO SCH (08:29)
[2022-11-27] MEDS: EZETIMIBE 10 MG TABLET PO SCH (08:29)
[2022-11-27] MEDS: CLOPIDOGREL BISULFATE 75 MG TAB PO SCH (08:29)
[2022-11-27] MEDS: MENTHOL-ZINC OXIDE 360 APPLN/120 GM TUBE EXT SCH ×3 (08:29→21:39)
[2022-11-27] MEDS: FOLIC ACID 1 MG TAB PO SCH (08:29)
[2022-11-27] MEDS: BUTT PASTE (ZINC OXIDE 16%) 171 APPLN/57 GM JAR EXT SCH ×3 (08:30→21:39)
--- NOTE | 2022-11-27 09:59 | Surgery Progress Note ---
Date of Service November 27, 2022 Assessment & Plan (1) Marychuy-rectal abscess: Plan: pt is a 67 year-old male who presents to ER with 3 weeks history rectal bleeding and pain, IMP: perirectal abscess, Plan, base on H/P, labs and CT scan finding- I recommend to do I/D perirectal abscess, D/W benefits, risk sand alternatives of the surgery, the risks - infection, bleeding, sepsis, [place],DVT, , pt and his and daughter understood, they agreed with surgery, pt signed informed consent, I answered all questions, pre-op iv antibiotic. 11/26/2022 12:[address] Hawley F/U S/P I/D perirectal abscess, POD 1 doing fine, continue iv antibiotic, out-patient colonoscopy to R/O rectal rupture caused perirectal abscess or rectal mass. I update about OR finding and the procedure pt had, pt understood, I answered all questions, case manage consult , january D/C home tomorrow, F/U [facility] wound care center, F/U me 2 weeks, 11/27/2022 9:[address] Hawley F/U S/P I/D perirectal abscess, POD 2 doing fine, continue iv antibiotic, some stool comes out from perirectal abscess wound, I informed pt , he may has rectal perforation and mass caused his perirectal abscess, pt understood, consult GI for colonoscopy to R/O rectal rupture caused perirectal abscess or rectal mass. will F/U, Admission and Anticipated Discharge Date Admission Date: November 25, 2022 Supervising Physician Co-Signing Physician Notes Attending addendum: I have physically seen this patient, have supervised the medical residents activ ities, and agree with the H&P unless as otherwise noted. Assessment and Plan: Perirectal abscess- Seen after OR drainage Follow culture and sensitivities Empiric Zosyn 4.5 g IV every [address] Hawley to continue to see Wound care nurse Diabetes mellitus- Placed on Accu-Cheks with NovoLog SSI coverage COPD- Duonebs every 4 hours while awake and every 2 hours when necessary. Every 4 hours as needed CAD/status post CABG/hypertension/aortic stenosis/status post AVR 2015- Continue clopidogrel 75 mg daily and aspirin 81 mg daily On chlorthalidone, which is likely responsible for hyponatremia and hypokalemia Repeat laboratories in a.m. and adjust dosing as needed Hypothyroidism- Continue levothyroxine 175 mcg daily GERD- CT suggestive of possible gastric ulcer or gastritis Patient without significant symptoms, monitor Continue pantoprazole Remaining orders and notations as noted Subjective patient seen and examined, says the pressure is better, although still has some rectal pain 11/26/2022 12:[address] Hawley F/U S/P I/D perirectal abscess, POD 1 pt is doing fine, no significant incision pain, no fever, wound culture- Many WBCs Seen Many Gram Positive Cocci Moderate Gram Positive Bacilli Moderate Gram Negative Bacilli 11/27/2022 9:[address] Hawley F/U S/P I/D perirectal abscess, POD 2 pt is doing fine, no significant incision pain, no fever, Review of Systems Constitutional: as per Subjective / HPI Eyes: as per Subjective / HPI Respiratory: COPD Cardiovascular: Additional Comments: CAD, aortic stenosis Gastrointestinal: colonoscopy last year, remove polyp, rectal abscess Genitourinary: + problem reported (kidney stone) Physical Exam Constitutional: WD/WN, vitals as above Eyes: PERRL, conjunctivae normal, anicteric sclerae Neck: trachea midline, no thyromegaly Respiratory: normal respiratory effort, lungs clear to auscultation Cardiovascular: RRR, no murmur, no edema Gastrointestinal (Abdomen): some stool comes out from wound, most likely pt had rupture rectum, Neurologic: patellar DTR's 2+ bilat, sensation intact Psychiatric: A+Ox3, euthymic affect Results & Data Vital Signs (Past 12 Hours) Vital Signs Temp Pulse Pulse Resp BP Pulse Ox O2 Del Method 11/27/22 07:56 37.0 C 73 20 153/79 H 95 Room Air 11/27/22 07:50 67 11/27/22 03:02 36.8 C 76 18 161/80 H 93 Room Air 11/26/22 23:35 37.1 C 74 18 146/73 H 94 Room Air 11/26/22 22:08 72 Laboratory Results Abnormal lab results 11/26/22 11/26/22 11/26/22 Range/Units 11:40 16:04 18:55 RBC (4.70-6.10) M/uL Hgb (14.0-18.0) g/dl Hct (42.0-52.0) % RDW Coeff of Chan (11.5-14.5) % MPV (9.4-12.4) fL Sodium (136-145) mmol/L Potassium (3.5-5.1) mmol/L Chloride (98-107) mmol/L Carbon Dioxide (21-32) mmol/L Glucose (70-99(Fasting)) mg/dl POC Glucose 240 H 168 H 50 L* (70-99) mg/dl Calcium (8.5-10.1) mg/dl 11/26/22 11/26/22 11/26/22 Range/Units 18:56 19:17 20:23 RBC (4.70-6.10) M/uL Hgb (14.0-18.0) g/dl Hct (42.0-52.0) % RDW Coeff of Chan (11.5-14.5) % MPV (9.4-12.4) fL Sodium (136-145) mmol/L Potassium (3.5-5.1) mmol/L Chloride (98-107) mmol/L Carbon Dioxide (21-32) mmol/L Glucose (70-99(Fasting)) mg/dl POC Glucose 53 L* 56 L* 177 H (70-99) mg/dl Calcium (8.5-10.1) mg/dl 11/26/22 11/27/22 11/27/22 Range/Units 21:18 05:36 05:36 RBC 4.00 L (4.70-6.10) M/uL Hgb 10.4 L (14.0-18.0) g/dl Hct 32.2 L (42.0-52.0) % RDW Coeff of Chan 14.7 H (11.5-14.5) % MPV 8.9 L (9.4-12.4) fL Sodium 132 L (136-145) mmol/L Potassium 3.4 L (3.5-5.1) mmol/L Chloride 92 L (98-107) mmol/L Carbon Dioxide 34 H (21-32) mmol/L Glucose 212 H (70-99(Fasting)) mg/dl POC Glucose 133 H (70-99) mg/dl Calcium 8.0 L (8.5-10.1) mg/dl
--- NOTE | 2022-11-27 11:29 | Hospitalist Progress Note ---
Date of Service November 27, 2022 Assessment & Plan (1) Perirectal abscess: Plan: Patient has a history bilateral lower etremity amputation from DM, vasculopathy, admitted on account og bloody stools and rectal pain -Found to have rectal abscess on CT pelvis measuring 6.6x2.7cm with gas and fluid collection -He is now s/p incision and drainage by surgery -Wound Cultures growing gram positive cocci and bacilli -Continue empiric IV Zosyn until sensitivities result -Plan is for colonoscopy tomorrorw to rule out rectal fistula or tumor as possible etiology of the abscess -Appreciate gen surgery, GI and wound care (2) Rectal bleeding: Plan: Most likely secondary to the perirectal abscess. No more bleeds (3) Fever: Plan: 2/2 abscess vs postop. prn Tylenol. Will order blood cultures (already received abx). Wound cultures pending. No fevers in the past 48 hrs (4) Type I diabetes mellitus, uncontrolled: Plan: Patient to use home pump. Check glucometer achs. Hypoglycemia protocol ordered. 11/04/22 A1c was 7.7. Patient's pump settings unknown. Reviewed last endocrine note (10/2022) and last hospital admission (08/2022). DM educator consulted for assistance in obtaining CGM and checking insulin pump settings. (5) Gastric wall thickening: Plan: Mild nonspecific thickening at gastric antrum per CT abd. GI on consult (6) Stage III pressure ulcer: Plan: Hx of. Routine wound care. (7) COPD (chronic obstructive pulmonary disease): Plan: Not on inhalers. (8) CAD (coronary artery disease): Plan: s/p CABGx1. Continue home Plavix and baby ASA. (9) Aortic stenosis: Plan: s/p aortic valve replacement in 2016 ([facility] [place] (10) Hypothyroidism: Plan: Continue home levothyroxine 175mcg. (11) Hypertension: Plan: Continue home chlorthalidone. (12) Dyslipidemia: Plan: Continue home atorvastatin 80 and ezetimibe. (13) Below-knee amputation of right lower extremity: Plan: Small scab wound noted. Routine wound care. (14) Above knee amputation of left lower extremity: Plan: Noted. Does not yet have prosthesis for. Per outpatient wound care notes, has nonhealing surgical of site. Plan DM1 diet. dvt ppx: no chemoppx postop; defer to gen surg full code, discussed with patient Hopefully d/c soon after colonoscopy tomorrow Admission and Anticipated Discharge Date Admission Date: November 25, 2022 Subjective patient seen and examined, he is stable post incision and drainage, denies fevers or chills Review of Systems Review of Systems: All systems reviewed are negative, apart from the ones contained in the history. Physical Exam Physical Exam: The patient is awake, alert and oriented 3, well developed and well nourished, normocephalic and atraumatic, lying in bed and in no acute distress. HEENT--PERRL, EOMI, mucous membranes and oropharynx mildly dry Neck--supple. No JVD. No bruits. Thyroid normal, trachea midline, no adenopathy. Heart--normal S1 and S2. No murmurs, rubs or gallops. Lungs--clear bilaterally, no respiratory distress, no accessory muscle use. Abdomen--normal bowel sounds and soft. Mild epigastric and left sided abdominal pain Extremities--Left AKA, right BKA Dermatologic--normal skin turgor, normal color, no abnormal lymph nodes, no rash. Neurologic--cranial nerves II through XII grossly intact. Rheumatologic--normal range of motion. Psychiatric--normal affect. Results & Data Results & Data Vital Signs (Past 12 Hours) Vital Signs Temp Pulse Pulse Resp BP Pulse Ox O2 Del Method 11/27/22 10:38 Room Air 11/27/22 07:56 98.6 F 73 20 153/79 H 95 Room Air 11/27/22 07:50 67 11/27/22 03:02 98.2 F 76 18 161/80 H 93 Room Air 11/26/22 23:35 98.8 F 74 18 146/73 H 94 Room Air PG Care Time/CCT Total # of Minutes Spent Total Time Spent with Patient: Total time spent is greater than 50% in coordination of care (as documented) at patient's floor/unit and/or counseling patient: Coding Level of Care Code 40106 SUB INP/OBS CARE 2/35MIN Diagnoses Perirectal abscess K61.1 Rectal bleeding K62.5 Fever R50.9 Type I diabetes mellitus, uncontrolled Gastric wall thickening K31.89 Stage III pressure ulcer L89.93 COPD (chronic obstructive pulmonary disease) J44.9 CAD (coronary artery disease) I25.10 Coronary Disease-Associated Artery/Lesion type: [place] artery [place] vs. transplanted heart: [place] heart Associated angina: without angina Aortic stenosis I35.0 Hypothyroidism E03.9 Hypothyroidism type: unspecified Hypertension I10 Hypertension type: unspecified Dyslipidemia E78.5 Below-knee amputation of right lower extremity S88.111A Above knee amputation of left lower extremity S78.112A Time Spent (min) 35 (8) CAD (coronary artery disease) Coronary Disease-Associated Artery/Lesion type: [place] artery [place] vs. [place] splanted heart: [place] heart Associated angina: without angina Qualified Code(s): I25.10 - Atherosclerotic heart disease of [place] coronary artery without angina pectoris (10) Hypothyroidism Hypothyroidism type: unspecified Qualified Code(s): E03.9 - Hypothyroidism, unspecified (11) Hypertension Hypertension type: unspecified Qualified Code(s): I10 - Essential (primary) hypertension
[2022-11-27] MEDS ORDERED: LAVAGE SOLUTION 4000ML PO SCH ×2 (12:00→18:00)
--- NOTE | 2022-11-27 12:49 | Gastrointestinal Consultation ---
Date of Consultation November 27, 2022 Assessment & Plan (1) Gastric wall thickening: (2) Abnormal CT scan: Plan gastric wall thickening and abnormal CT scan showing possible rectal lesion s/p I and D on 11/25 perirectal abscess Recs: --prep with golytely today 4L at 6 pm, clear liquid diet today --NPO post midnight --EGD and colonoscopy tomorrow mornign with [facility] to further evaluate CT findings --supportive care, IVFs Thank you for allowing me to participate in the care of this patient History of Present Illness Attending Physician: Chetna Perrin MD History of Present Illness 67 yo male with CKD, COPD, CAD here for perirectal abscess, noted to have bloody stools intermittently for 2-3 weeks. GI consulted as there is a question of r ectal mass, fistula, contained perforation on imaging from 11/25. Patient had I and D of perirrectal abscess on 11/25. last colonoscopy in [address] also showed thickening in the stomach and follow up endoscopy was suggested. CBC, CMP reviewed. Allergies Allergy/AdvReac Type Severity Reaction Status Date / Time No Known Allergies Allergy Unknown Verified 11/25/22 18:46 Home Medications Medication Instructions Recorded Confirmed Type aspirin 81 mg tablet,delayed 81 mg PO QAM 05/04/21 11/25/22 History release (Mohit Low Dose Aspirin) ferrous sulfate 325 mg (65 mg 325 mg PO BID #60 tabs 08/03/21 11/25/22 Rx iron) tablet,delayed release lactobacillus combination no.9 4 4,000 mmu cells PO QAM 08/04/21 11/25/22 History billion cell capsule (Adult 50 Plus Probiotic) atorvastatin 80 mg tablet (Lipitor) 80 mg PO HS #90 tabs 11/15/21 11/25/22 Rx docusate sodium 100 mg capsule 100 mg PO DIRECTED PRN 01/04/22 11/25/22 History (Colace) Constipation chlorthalidone 25 mg tablet 25 mg PO QAM #90 tabs 05/20/22 11/25/22 Rx folic acid 1 mg tablet 1 mg PO QAM #30 tabs 06/23/22 11/25/22 Rx levothyroxine 175 mcg tablet 175 mcg PO QAM #90 tabs 07/01/22 11/25/22 Rx (Synthroid) magnesium oxide 400 mg (241.3 mg 400 mg PO QAM #30 tabs 07/07/22 11/25/22 Rx magnesium) tablet acetaminophen 500 mg tablet 1,000 mg PO Q8 PRN Pain 07/18/22 11/25/22 History (Tylenol Extra Strength) nystatin 100,000 unit/gram topical 1 applic topical BID PRN Skin 07/18/22 11/25/22 History powder Irritation oxycodone 5 mg tablet 5 - 10 mg PO Q4 PRN pain #30 tabs 07/22/22 11/25/22 Rx tramadol 50 mg tablet 50 - 100 mg PO Q6H PRN pain #20 07/22/22 11/25/22 Rx tabs metoprolol tartrate 25 mg tablet 12.5 mg PO BID #90 tabs 08/08/22 11/25/22 Rx potassium chloride 20 mEq 20 meq PO BID #60 tabs 08/08/22 11/25/22 Rx tablet,extended release calcitriol 0.25 mcg capsule 0.25 mcg PO QAM #30 caps 08/19/22 11/25/22 Rx (Rocaltrol) clopidogrel 75 mg tablet (Plavix) 75 mg PO QAM #30 tabs 08/19/22 11/25/22 Rx polyethylene glycol 3350 17 17 g PO DAILY 08/23/22 11/25/22 History gram/dose oral powder (Miralax) pantoprazole 40 mg tablet,delayed 40 mg PO UD PRN Acid Reflux #90 10/28/22 0 11/25/22 Rx release (Protonix) tabs ezetimibe 10 mg tablet 10 mg PO DAILY #30 tabs 11/14/22 11/25/22 Rx insulin aspart U-100 100 unit/mL 0 unit continuous subcutaneous 11/25/22 11/25/22 History subcutaneous solution (Novolog infusion DAILY U-100 Insulin aspart) menthol 0.44 %-zinc oxide 20.6 % 1 applic EXT TID 11/25/22 11/25/22 History topical ointment (Calmoseptine) zinc oxide 16 % topical ointment 1 applic EXT TID 11/25/22 11/25/22 History (Boudreauxs Butt Paste) Patient History Medical History Above knee amputation of left lower extremity Anemia Below-knee amputation of right lower extremity Candidal diaper rash Clostridium difficile colitis DVT prophylaxis Folate deficiency GERD (gastroesophageal reflux disease) History of Clostridium difficile infection s/p treatment (2020) History of colon polyps 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) Hx MRSA infection 01/2022 (left heel) Surgical History Below-knee amputation of right lower extremity H/O cataract extraction R/L H/O endarterectomy R common femoral (11/2018) H/O vascular surgery Right Femoral to Posterior tibial Prosthetic Bypass Graft(Right) History of ankle surgery LEFT ANKLE +HARDWARE REMOVED History of aortic valve replacement 2015 ([facility] [place]) History of arterial bypass of lower extremity Left femoral to PT composite bypass graft (06/2020) History of cardiac cath x2, most recent 2016 > no stents (subsequent CABG with AVR in 2015); [facility] History of carpal tunnel release R/L History of colonoscopy History of coronary artery bypass graft CABG x1 + AVR (2015) History of esophagogastroduodenoscopy (EGD) History of myringotomy w/tubes bilat. History of open reduction and internal fixation (ORIF) procedure LLE () History of skin graft Split Thickness Skin Graft of Left Lateral Ankle (11/18/20): LMA#5, atraumatic x1 at [facility] History of tonsillectomy History of tooth extraction History of umbilical hernia repair Hx of cystoscopy w/stent placement; stent then removed Hx of surgical procedure Left Leg Wound Debridement and Irrigation S/P femoral-tibial bypass S/P femoropopliteal bypass surgery Right fem-pop bypass graft (01/19/21): Grade 2 view, MAC 3.0, ETT 8.0 at [facility] S/P insertion of iliac artery stent B/L iliac stent placement (2014) 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 Left transmetatarsal amputation (11/23/21): LMA# 5.0 at [facility]. No issues noted per post-op anesthesia progress note. HX 1 SX TO REMOVE ALL TOES LEFT FOOT NOVEMBER 2021 Family History Brother Family history of diabetes mellitus Sister Family history of diabetes mellitus Mother Family history of diabetes mellitus Grandmother (Maternal) Family history of diabetes mellitus Uncle Family hx of colon cancer Colorectal cancer Father Family history of esophageal cancer Sister Family history of diabetes mellitus Other No family history of adverse response to anesthesia Denies family history of Ovarian cancer Prostate cancer Myocardial infarction Breast cancer Social History Smoking Status: Former smoker Tobacco Type: Cigarettes and Smokeless Tobacco (Dip or Chew) Second Hand Exposure: Yes (as a child); Hx Alcohol Use: No Hx Substance Use: No Preferred Language: Slovak Communication Ability: Effective Visual Impairment: Limited Hearing Ability: Hard of Hearing Medical Dosimetrist Required: No Beliefs That Will Affect Care: None marital status: Current Living Situation: Other Current Living Situation Comment: Roommate current occupational status: disabled How many Children do You have: 2 How many Children do You have Comment: family assists with care, also is part of the waiver program so the pt's roommate is able to assist with care through this program Other Information That Helps Us Care for You: No Feels Safe at Home: Yes Safety Concerns: Feels Safe At This Time Childhood Exposure to Second-Hand Smoke: Yes Diet Comment: Carb Counts. (8675-2955, roughly), protein drinks caffeine: Yes (coffee, rarely ) during the past year weight has: remained stable Dental Care, Regularly: No Seatbelt Use: always Sunscreen Use: No Gender Identity: Male Assistive Devices: Prosthesis, Slide Board, Walker and Wheelchair Review of Systems Constitutional: no fever, no chills and no weight loss Eyes: as per Subjective / HPI Ear, Nose, Mouth, Throat: as per Subjective / HPI Respiratory: no dyspnea and no dyspnea on exertion Cardiovascular: no chest pain and no palpitations Gastrointestinal: as per Subjective / HPI Musculoskeletal: no joint pain and no swelling Integumentary: no rash and no lesions Neurologic: no numbness and no paresthesia Psychiatric: no depression and no anxiety Endocrine: no fatigue Hematologic / Lymphatic: no easy bleeding and no easy bruising Physical Exam Constitutional: WD/WN, vitals as above Eyes: EOM intact bilaterally Neck: normal visual inspection Respiratory: normal respiratory effort, lungs clear to auscultation Cardiovascular: RRR, no murmur, no edema Gastrointestinal (Abdomen): Inspection/Auscultation: abdomen normal to inspection; abdomen not distended Percussion/Palpation: abdomen soft; abdomen nontender and no hepatosplenomegaly Musculoskeletal: Extremities: no cyanosis Gait: normal gait Skin: no rashes, warm and dry Neurologic: moves all extremities Psychiatric: A+Ox3, euthymic affect Results & Data Vital Signs (Past 12 Hours) Vital Signs Temp Pulse Pulse Resp BP Pulse Ox O2 Del Method 11/27/22 12:09 36.8 C 68 16 127/69 96 Room Air 11/27/22 10:38 Room Air 11/27/22 07:56 37.0 C 73 20 153/79 H 95 Room Air 11/27/22 07:50 67 11/27/22 03:02 36.8 C 76 18 161/80 H 93 Room Air PG Care Time/CCT Total # of Minutes Spent Total Time Spent with Patient: Total time spent is greater than 50% in coordination of care (as documented) at patient's floor/unit and/or counseling patient: Coding Level of Care Code 25039 IN/OBS CONSULT LVL 4,60M Diagnoses Gastric wall thickening K31.[address] scan R93.89
[2022-11-27] MEDS: ATORVASTATIN 40 MG TAB PO SCH (21:40)
[2022-11-28] MEDS: PIPERACILLIN/TAZOBACTAM 3.375 GM in DEXTROSE 5% 100 ML IV SCH ×4 (00:23→23:57)
[2022-11-28] MEDS: ACETAMINOPHEN 325 MG TAB PO PRN (02:17)
[2022-11-28] MEDS: HYDROmorphone INJ 0.5 MG/0.5 ML SYR IV PRN (03:35)
[2022-11-28] MEDS: LEVOTHYROXINE SODIUM 175 MCG TABLET PO SCH (06:07)
[2022-11-28 07:12] LABS: Hematocrit (blood only) 34.2 % (42.0-52.0); Hemoglobin 11.1 g/dl (14.0-18.0); Mean Corpuscular Hgb Conc 32.5 g/dL (32.0-36.0); Mean Corpuscular Volume 80.1 fL (80.0-100.0); Platelet Count 404 K/uL (130-400); RDW Coefficient of Variation 15.4 % (11.5-14.5); RDW Standard Deviation 44.4 fL (36.4-46.3); Red Blood Count 4.27 M/uL (4.70-6.10); White Blood Count 8.27 K/ul (4.8-10.8)
[2022-11-28 07:37] LABS: BUN Creatinine Ratio 11.8 (10-20); Calcium 8.2 mg/dl (8.5-10.1); Creatinine Clr Calc Pharmacy 104.8 ml/min; Est GFR (African American) 116.2 ml/min; Est GFR (Non-African American) 100.2 ml/min; Potassium 3.1 mmol/L (3.5-5.1)
[2022-11-28] MEDS ORDERED: NSS + 20MEQ KCL 20 MEQ/1,000 ML BAG IV SCH (09:00)
--- NOTE | 2022-11-28 09:11 | Gastroenterology Progress Note ---
Date of Service November 28, 2022 Assessment & Plan (1) Gastric wall thickening: (2) Rectal bleeding: (3) Perirectal abscess: Plan Pt is a 67 yo male w symptoms of rectal pain, bleeding, noted to have bonifacio- rectal abscess s/p I&D on 11/25. CT imaging studies also concerning for possible contained L sided rectal perforation, ? rectal mass, and gastric thickening. We will defer colonoscopy evaluation given risk for full rectal perforation. Would recommend antibiotics management, Surgery follow up and plan for OP EGD and colonoscopy evaluation in 6 weeks time. Will obtain repeat CT abd/pelvis to re-eval perforation area prior to colonoscopy. Advanced to heart healthy, diabetic diet. Pls recall GI prn Admission and Anticipated Discharge Date Admission Date: November 25, 2022 Supervising Physician Co-Signing Physician Notes I personally saw and evaluated the patient on 11/28/2022 with KAREEN Luke and agree with her findings and plan of care. 67 y/o M with CAD on plavix, COPD, AVR in 2016, bilateral LE amputations who presented with rectal pain and bleeding found to have a 6 cm rectal abscess on imaging with possibility of a contained perforation and rectal mass. Also noted to have gastric wall thickening. He underwent I+D of abscess with general surgery. He is currently on IV abx. On physical exam abdomen is soft, non-tender, non-distended. he was being change at time of exam with notable drain into rectum draining pus and fluid. At this time colonoscopy would be contraindicated with active rectal abscess and ? perforation on imaging. Would allow abscess time to heal and obtain CT imaging as outpatient prior to endoscopy to make sure no perforation. if this is without concern of perforation will plan for outpatient EGD and colonoscopy in 6-8 weeks to further evaluate. GI will sign off but please call back with questions. Lorena Crooks, DO Gastroenterology and Hepatology Subjective Pt denies any abd pain, n/v. Some rectal pain. Took 1/2 of [place] volume. Review of Systems Review of Systems: All systems reviewed & are unremarkable except as noted in HPI & below Physical Exam Constitutional: WD/WN, vitals as above well groomed, cooperative and comfortable Eyes: PERRL, conjunctivae normal, anicteric sclerae ENMT: external ear and nose normal, oropharynx normal Respiratory: normal respiratory effort, lungs clear to auscultation Cardiovascular: RRR, no murmur, no edema Gastrointestinal (Abdomen): normal bowel sounds, soft, nontender, no hepatosplenomegaly Musculoskeletal: R BKA, L AKA Skin: no rashes, warm and dry no jaundice Psychiatric: A+Ox3, euthymic affect Lymphatic: no lymphedema Results & Data Vital Signs (Past 12 Hours) Vital Signs Temp Pulse Pulse Resp BP Pulse Ox O2 Del Method 11/28/22 06:45 36.8 C 72 16 130/78 93 Room Air 11/28/22 03:09 36.8 C 75 18 135/80 93 Room Air 11/27/22 23:56 77 11/27/22 23:44 36.5 C 80 16 121/77 97 Room Air
[2022-11-28] MEDS: ASPIRIN 81 MG ECTAB PO SCH (09:21)
[2022-11-28] MEDS: POTASSIUM CHLORIDE CRTAB 20 MEQ TABCR PO SCH ×2 (09:22→21:18)
[2022-11-28] MEDS: CALCITRIOL 0.25 MCG CAPSULE PO SCH (09:22)
[2022-11-28] MEDS: POLYETHYLENE (MIRALAX) 17 GM PACK PO SCH (09:22)
[2022-11-28] MEDS: BUTT PASTE (ZINC OXIDE 16%) 171 APPLN/57 GM JAR EXT SCH ×3 (09:22→21:20)
[2022-11-28] MEDS: METOPROLOL TARTRATE 25 MG TAB PO SCH ×2 (09:23→21:19)
[2022-11-28] MEDS: CHLORTHALIDONE 25 MG TAB PO SCH (09:24)
[2022-11-28] MEDS: CLOPIDOGREL BISULFATE 75 MG TAB PO SCH (09:25)
[2022-11-28] MEDS: FOLIC ACID 1 MG TAB PO SCH (09:25)
[2022-11-28] MEDS: EZETIMIBE 10 MG TABLET PO SCH (09:25)
[2022-11-28] MEDS: ADVANCED PROBIOTIC 1250 MG CAPSULE PO SCH (09:25)
[2022-11-28] MEDS: MAGNESIUM OXIDE 400 MG TAB PO SCH (09:26)
[2022-11-28] MEDS: oxyCODONE/ACETAMINOPHEN 5mg/325mg TAB PO PRN ×2 (09:27→21:18)
[2022-11-28] MEDS: FERROUS SULFATE 325 MG TAB PO SCH ×2 (09:29→21:19)
[2022-11-28] MEDS: MENTHOL-ZINC OXIDE 360 APPLN/120 GM TUBE EXT SCH ×3 (10:57→21:20)
--- NOTE | 2022-11-28 13:33 | Surgery Progress Note ---
Date of Service November 28, 2022 Assessment & Plan (1) Marychuy-rectal abscess: Plan: POD # 3 s/p I&D of perirectal abscess ? perforated rectum vs rectal mass on CT scan afebrile, vss leukocytosis resolved postop pain controlled and improving Plan: Continue abx, recommend oral Bactrim for 10 days on discharge daily dressing changes as needed Will need every other day packing changes Duarte drain to stay into wound to allow drainage f/u surgery office in 1-2 weeks Follow-up with GI for EGD/Colonoscopy in 6-[address] scan prior Would also suggest outpatient Colorectal referral Dr. person has seen and examined pt, agrees with above. Dr. Sharp will cover this pt this week, Thanks, Admission and Anticipated Discharge Date Admission Date: November 25, 2022 Supervising Physician Co-Signing Physician Notes I personally saw and evaluated the patient on 11/28/2022 with KAREEN Luke and agree with her findings and plan of care. 67 y/o M with CAD on plavix, COPD, AVR in 2016, bilateral LE amputations who presented with rectal pain and bleeding found to have a 6 cm rectal abscess on imaging with possibility of a contained perforation and rectal mass. Also noted to have gastric wall thickening. He underwent I+D of abscess with general surgery. He is currently on IV abx. On physical exam abdomen is soft, non-tender, non-distended. he was being change at time of exam with notable drain into rectum draining pus and fluid. At this time colonoscopy would be contraindicated with active rectal abscess and ? perforation on imaging. Would allow abscess time to heal and obtain CT imaging as outpatient prior to endoscopy to make sure no perforation. if this is without concern of perforation will plan for outpatient EGD and colonoscopy in 6-8 weeks to further evaluate. GI will sign off but please call back with questions. Lorena Crooks, DO Gastroenterology and Hepatology Subjective pain is better today drank 1/2 bottles of colonoscopy prep but it has been cancelled due to risk of perforation per pelon silva wound nurse , patient declined packing change by her today. Patient states nurses changed dressing earlier. Review of Systems Constitutional: as per Subjective / HPI Eyes: as per Subjective / HPI Respiratory: COPD Cardiovascular: Additional Comments: CAD, aortic stenosis Gastrointestinal: colonoscopy last year, remove polyp, rectal abscess Genitourinary: + problem reported (kidney stone) Physical Exam Constitutional: WD/WN, vitals as above no acute distress and not ill appearing Eyes: PERRL, conjunctivae normal, anicteric sclerae Neck: trachea midline, no thyromegaly normal visual inspection and trachea midline Respiratory: normal respiratory effort, lungs clear to auscultation normal respiratory effort; no respiratory distress Cardiovascular: RRR, no murmur, no edema Gastrointestinal (Abdomen): soft, NT, ND, some stool came out for perirectal wound, less redness, duarte drainage intact, Skin: no rashes, warm and dry Neurologic: patellar DTR's 2+ bilat, sensation intact Psychiatric: A+Ox3, euthymic affect Orientation: alert and oriented x 3 Results & Data Vital Signs (Past 12 Hours) Vital Signs Temp Pulse Pulse Resp BP Pulse Ox O2 Del Method 11/28/22 10:13 72 11/28/22 06:45 36.8 C 72 16 130/78 93 Room Air 11/28/22 03:09 36.8 C 75 18 135/80 93 Room Air Laboratory Results 11/28/22 11/28/22 11/28/22 Range/Units 11:30 09:11 06:50 WBC (4.8-10.8) K/ul RBC (4.70-6.10) M/uL Hgb (14.0-18.0) g/dl Hct (42.0-52.0) % MCV (80.0-100.0) fL MCH (25.0-34.0) pg MCHC (32.0-36.0) g/dL RDW Std Deviation (36.4-46.3) fL RDW Coeff of Chan (11.5-14.5) % Plt Count (130-400) K/uL MPV (9.4-12.4) fL Sodium 134 L (136-145) mmol/L Potassium 3.1 L (3.5-5.1) mmol/L Chloride 94 L (98-107) mmol/L Carbon Dioxide 34 H (21-32) mmol/L Anion Gap 6 (3-11) BUN 8 (6-23) mg/dl Creatinine 0.68 (0.6-1.4) mg/dl Est Cr Clr Drug Dosing 104.8 ml/min Est GFR ( Amer) 116.2 ml/min Est GFR (Non-Af Amer) 100.2 ml/min BUN/Creatinine Ratio 11.8 (10-20) Glucose 90 (70-99(Fasting)) mg/dl POC Glucose 150 H 87 (70-99) mg/dl Calcium 8.2 L (8.5-10.1) mg/dl 11/28/22 11/28/22 11/28/22 Range/Units 06:50 06:30 03:07 WBC 8.27 (4.8-10.8) K/ul RBC 4.27 L (4.70-6.10) M/uL Hgb 11.1 L (14.0-18.0) g/dl Hct 34.2 L (42.0-52.0) % MCV 80.1 (80.0-100.0) fL MCH 26.0 (25.0-34.0) pg MCHC 32.5 (32.0-36.0) g/dL RDW Std Deviation 44.4 (36.4-46.3) fL RDW Coeff of Chan 15.4 H (11.5-14.5) % Plt Count 404 H (130-400) K/uL MPV 9.0 L (9.4-12.4) fL Sodium (136-145) mmol/L Potassium (3.5-5.1) mmol/L Chloride (98-107) mmol/L Carbon Dioxide (21-32) mmol/L Anion Gap (3-11) BUN (6-23) mg/dl Creatinine (0.6-1.4) mg/dl Est Cr Clr Drug Dosing ml/min Est GFR ( Amer) ml/min Est GFR (Non-Af Amer) ml/min BUN/Creatinine Ratio (10-20) Glucose (70-99(Fasting)) mg/dl POC Glucose 97 150 H (70-99) mg/dl Calcium (8.5-10.1) mg/dl 11/27/22 11/27/22 11/27/22 Range/Units 21:13 20:09 20:05 WBC (4.8-10.8) K/ul RBC (4.70-6.10) M/uL Hgb (14.0-18.0) g/dl Hct (42.0-52.0) % MCV (80.0-100.0) fL MCH (25.0-34.0) pg MCHC (32.0-36.0) g/dL RDW Std Deviation (36.4-46.3) fL RDW Coeff of Chan (11.5-14.5) % Plt Count (130-400) K/uL MPV (9.4-12.4) fL Sodium (136-145) mmol/L Potassium (3.5-5.1) mmol/L Chloride (98-107) mmol/L Carbon Dioxide (21-32) mmol/L Anion Gap (3-11) BUN (6-23) mg/dl Creatinine (0.6-1.4) mg/dl Est Cr Clr Drug Dosing ml/min Est GFR ( Amer) ml/min Est GFR (Non-Af Amer) ml/min BUN/Creatinine Ratio (10-20) Glucose (70-99(Fasting)) mg/dl POC Glucose 278 H 343 H* 328 H* (70-99) mg/dl Calcium (8.5-10.1) mg/dl 11/27/22 Range/Units 16:53 WBC (4.8-10.8) K/ul RBC (4.70-6.10) M/uL Hgb (14.0-18.0) g/dl Hct (42.0-52.0) % MCV (80.0-100.0) fL MCH (25.0-34.0) pg MCHC (32.0-36.0) g/dL RDW Std Deviation (36.4-46.3) fL RDW Coeff of Chan (11.5-14.5) % Plt Count (130-400) K/uL MPV (9.4-12.4) fL Sodium (136-145) mmol/L Potassium (3.5-5.1) mmol/L Chloride (98-107) mmol/L Carbon Dioxide (21-32) mmol/L Anion Gap (3-11) BUN (6-23) mg/dl Creatinine (0.6-1.4) mg/dl Est Cr Clr Drug Dosing ml/min Est GFR ( Amer) ml/min Est GFR (Non-Af Amer) ml/min BUN/Creatinine Ratio (10-20) Glucose (70-99(Fasting)) mg/dl POC Glucose 295 H (70-99) mg/dl Calcium (8.5-10.1) mg/dl Microbiology 11/25/22 21:17 Gram Stain - Final Rectal Abscess Aerobic and Anaerobic Culture - Preliminary Escherichia coli Bacteroides thetaiotaomicron Bacteroides uniformis 11/26/22 00:34 Aerobic Blood Culture - Preliminary Blood No growth in Aerobic bottle after 48 hours. Anaerobic Blood Culture - Preliminary No growth in Anaerobic bottle after 48 hours. 11/26/22 00:26 Aerobic Blood Culture - Preliminary Blood No growth in Aerobic bottle after 48 hours. Anaerobic Blood Culture - Preliminary No growth in Anaerobic bottle after 48 hours.
[2022-11-28] MEDS ORDERED: CARBOHYDRATES FOR HYPOGLYCEMIA PO PRN (14:12)
[2022-11-28] MEDS ORDERED: DEXTROSE 50% 50 ML SYRINGE IV PRN (14:12)
[2022-11-28] MEDS ORDERED: GLUCOSE 40% GEL 15 GM TUBE PO PRN (14:12)
[2022-11-28] MEDS ORDERED: GLUCOSE 10 TAB/TUBE PO PRN (14:12)
[2022-11-28] MEDS ORDERED: GLUCAGON FOR INJ 1 MG VIAL SQ PRN (14:12)
--- NOTE | 2022-11-28 14:30 | Hospitalist Progress Note ---
Date of Service November 28, 2022 Assessment & Plan (1) Perirectal abscess: Plan: Status post incision and drainage, postoperative day #3. E. coli isolated which is pansensitive. He remains on intravenous Zosyn. He will be discharged on oral Augmentin therapy. Appreciate surgical consultation and recommendations. Colonoscopy will be done as an outpatient at a later date. Appreciate gastroenterology consultation and recommendations (2) Rectal bleeding: Plan: Most likely secondary to the perirectal abscess. Now resolved. Hemoglobin stable (3) Fever: Plan: Present on admission. Due to perirectal abscess. Now resolved (4) Type I diabetes mellitus, uncontrolled: Plan: ADA diet. Continue insulin therapy per pump. Sliding scale coverage as needed. (5) Gastric wall thickening: Plan: Mild nonspecific thickening at gastric antrum per CT abd. GI on consult appreciated. EGD will be done as an outpatient (6) Stage III pressure ulcer: Plan: Sacral decubitus area. Routine wound care. (7) COPD (chronic obstructive pulmonary disease): Plan: Stable. Continue current medical management . Not on inhalers. (8) CAD (coronary artery disease): Plan: s/p CABGx1. Stable. Continue home Plavix and baby ASA. (9) Aortic stenosis: Plan: s/p aortic valve replacement in 2016 ([facility] [place] (10) Hypothyroidism: Plan: Continue home levothyroxine 175mcg. (11) Hypertension: Plan: Continue home chlorthalidone. (12) Dyslipidemia: Plan: Continue home atorvastatin and ezetimibe. (13) Below-knee amputation of right lower extremity: Plan: Small scab wound noted. Routine wound care. 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 Wound care management. Plan Anticipate discharge to home tomorrow, November 28, on Augmentin . EGD and colonoscopy will be done as an outpatient at a later date per gastroenterology Admission and Anticipated Discharge Date Admission Date: November 25, 2022 Subjective Alert and oriented. Gastroenterology entry noted. EGD and colonoscopy will be done as an outpatient at a later date. Oral potassium supplementation increased. He remains on Zosyn intravenously. Will discharge home probably tomorrow, November 29, on oral Augmentin therapy. Review of Systems Review of Systems: Constitutional-no fever or chills ENT-no blurred vision, no double vision, no epistaxis, no sore throat Respiratory-no cough, no wheezing, no shortness of breath Cardiac-no palpitations, no chest pain, no syncope GI-no nausea, vomiting, diarrhea, melena, hematochezia -no urinary retention, no urinary incontinence, no dysuria, no hematuria Musculoskeletal-no joint pain, no muscle tenderness Skin-no bruising, no rashes, no pruritus Neuro-no isolated weakness, no paresthesia, no weakness Psych-no depression, no anxiety Physical Exam Physical Exam: General-alert and oriented x3, no fevers, no chills HEENT-head atraumatic and normocephalic, pupils equal and reactive to light, extraocular muscles intact Neck-no lymphadenopathy or thyromegaly, trachea midline Chest-clear to auscultation percussion. No rales wheezing or rhonchi Cardiac-regular rate and rhythm, normal S1 and S2 Abdomen-normal bowel sounds, nontender, no hepatosplenomegaly Extremities-left leg AKA status. Right leg BKA status. Neuro-cranial nerves II through XII intact, motor and sensory function within normal limits, strength symmetrical, no focal deficits Psych-normal affect, normal mood Results & Data Results & Data Vital Signs (Past 12 Hours) Vital Signs Temp Pulse Pulse Resp BP Pulse Ox O2 Del Method 11/28/22 10:13 72 11/28/22 06:45 36.8 C 72 16 130/78 93 Room Air 11/28/22 03:09 36.8 C 75 18 135/80 93 Room Air Laboratory Results 11/28/22 06:50 11/28/22 06:50 PG Care Time/CCT Total # of Minutes Spent Total Time Spent with Patient: Total time spent is greater than 50% in coordination of care (as documented) at patient's floor/unit and/or counseling patient: Coding Level of Care Code 05539 SUB INP/OBS CARE 3/50MIN Diagnoses Perirectal abscess K61.1 Rectal bleeding K62.5 Fever R50.9 Type I diabetes mellitus, uncontrolled Gastric wall thickening K31.89 Stage III pressure ulcer L89.93 COPD (chronic obstructive pulmonary disease) J44.9 CAD (coronary artery disease) I25.10 Coronary Disease-Associated Artery/Lesion type: [place] artery [place] vs. transplanted heart: [place] heart Associated angina: without angina Aortic stenosis I35.0 Hypothyroidism E03.9 Hypothyroidism type: unspecified Hypertension I10 Hypertension type: unspecified Dyslipidemia E78.5 Below-knee amputation of right lower extremity S88.111A Above knee amputation of left lower extremity S78.112A (8) CAD (coronary artery disease) Coronary Disease-Associated Artery/Lesion type: [place] artery [place] vs. transplanted heart: [place] heart Associated angina: without angina Qualified Code(s): I25.10 - Atherosclerotic heart disease of [place] coronary artery without angina pectoris (10) Hypothyroidism Hypothyroidism type: unspecified Qualified Code(s): E03.9 - Hypothyroidism, unspecified (11) Hypertension Hypertension type: unspecified Qualified Code(s): I10 - Essential (primary) hypertension
[2022-11-28] MEDS: INSULIN ASPART PER UNIT CHARGE SC SCH ×2 (17:16→21:20)
[2022-11-28] MEDS: ATORVASTATIN 40 MG TAB PO SCH (21:19)
[2022-11-28] MEDS ORDERED: ONDANSETRON INJ 2 MG/ML 2 ML VIAL IV ONE (21:34)
[2022-11-29] MEDS: LEVOTHYROXINE SODIUM 175 MCG TABLET PO SCH (05:44)
[2022-11-29] MEDS: oxyCODONE/ACETAMINOPHEN 5mg/325mg TAB PO PRN ×3 (06:05→21:06)
[2022-11-29] MEDS: INSULIN ASPART PER UNIT CHARGE SC SCH ×4 (08:13→21:06)
[2022-11-29] MEDS: PIPERACILLIN/TAZOBACTAM 3.375 GM in DEXTROSE 5% 100 ML IV SCH ×3 (08:15→23:56)
[2022-11-29 08:51] LABS: Basophils # (auto) 0.06 K/uL (0-0.2); Basophils % (auto) 0.7 %; Eosinophils # (auto) 0.38 K/uL (0-0.50); Eosinophils % (auto) 4.6 %; Hematocrit (blood only) 35.1 % (42.0-52.0); Hemoglobin 11.6 g/dl (14.0-18.0); Immature Granulocytes # (auto) 0.03 K/uL (0.01-0.20); Immature Granulocytes % (auto) 0.4 %; Lymphocytes # (auto) 1.58 K/uL (1.2-3.4); Lymphocytes % (auto) 19.3 %; Mean Corpuscular Hemoglobin 26.2 pg (25.0-34.0); Mean Corpuscular Volume 79.2 fL (80.0-100.0); Mean Platelet Volume 9.3 fL (9.4-12.4); Monocytes # (auto) 0.97 K/uL (0.11-0.59); Monocytes % (auto) 11.9 %; Neutrophils # (auto) 5.16 K/uL (1.40-6.50); Neutrophils % (auto) 63.1 %; Platelet Count 403 K/uL (130-400); RDW Coefficient of Variation 15.4 % (11.5-14.5); RDW Standard Deviation 44.6 fL (36.4-46.3); Red Blood Count 4.43 M/uL (4.70-6.10); White Blood Count 8.18 K/ul (4.8-10.8)
[2022-11-29] MEDS: METOPROLOL TARTRATE 25 MG TAB PO SCH ×2 (08:52→21:08)
[2022-11-29] MEDS: FERROUS SULFATE 325 MG TAB PO SCH ×2 (08:52→21:09)
[2022-11-29] MEDS: PANTOprazole 40 MG TAB PO PRN (08:52)
[2022-11-29] MEDS: POTASSIUM CHLORIDE CRTAB 20 MEQ TABCR PO SCH ×2 (08:55→21:08)
[2022-11-29] MEDS: MAGNESIUM OXIDE 400 MG TAB PO SCH (08:55)
[2022-11-29] MEDS: CHLORTHALIDONE 25 MG TAB PO SCH (08:56)
[2022-11-29] MEDS: CALCITRIOL 0.25 MCG CAPSULE PO SCH (08:57)
[2022-11-29] MEDS: ADVANCED PROBIOTIC 1250 MG CAPSULE PO SCH (08:57)
[2022-11-29] MEDS: EZETIMIBE 10 MG TABLET PO SCH (08:57)
[2022-11-29] MEDS: ASPIRIN 81 MG ECTAB PO SCH (08:58)
[2022-11-29] MEDS: CLOPIDOGREL BISULFATE 75 MG TAB PO SCH (08:58)
[2022-11-29] MEDS: FOLIC ACID 1 MG TAB PO SCH (08:58)
[2022-11-29] MEDS: POLYETHYLENE (MIRALAX) 17 GM PACK PO SCH (08:59)
[2022-11-29] MEDS: BUTT PASTE (ZINC OXIDE 16%) 171 APPLN/57 GM JAR EXT SCH ×3 (09:02→21:09)
[2022-11-29 09:36] LABS: BUN Creatinine Ratio 15.2 (10-20); Calcium 8.7 mg/dl (8.5-10.1); Creatinine Clr Calc Pharmacy 90.2 ml/min; Est GFR (African American) 109.2 ml/min; Est GFR (Non-African American) 94.2 ml/min; Potassium 3.9 mmol/L (3.5-5.1)
[2022-11-29] MEDS ORDERED: INSULIN ASPART PER UNIT CHARGE SC STA (10:16)
[2022-11-29] MEDS: MENTHOL-ZINC OXIDE 360 APPLN/120 GM TUBE EXT SCH ×3 (11:19→21:09)
--- NOTE | 2022-11-29 12:09 | Discharge Summary ---
Date of Service November 29, 2022 Admission HPI Per Admitting Provider 67 y/o male w/ DM1 on insulin pump, PAD, COPD, CKD, CAD, hypothyroidism, HTN, HLD, right BKA, and left BKA who presents via EMS w/ exacerbation of bloody stool which he has intermittently had for 2-3 weeks. He has had intermittent rectal pain. There is pain w/ defecation. He has had mild staining of underwear with bright red blood. Today, he had larger amount of blood so he called EMS. He had diarrhea today only. Denies fever, chills, headache, weakness, chest pain, or shortness of breath. He denies history of similar. 10/09/21 colonoscopy was normal w/ 3 year repeat recommended. ED course: NSS 1L. Margarito. Gen surg consulted and brought patient to ED for I&D of perirectal abscess. Home insulin pump was continued w/ postop bsg in the 90s. Principal Diagnosis Perirectal abscess, lower GI bleed, hypokalemia, incidental finding of gastric wall thickening on abdominal CT scan Discharge Exam General-alert and oriented x3, no fevers, no chills HEENT-head atraumatic and normocephalic, pupils equal and reactive to light, extraocular muscles intact Neck-no lymphadenopathy or thyromegaly, trachea midline Chest-clear to auscultation percussion. No rales wheezing or rhonchi Cardiac-regular rate and rhythm, normal S1 and S2 Abdomen-normal bowel sounds, nontender, no hepatosplenomegaly Extremities-left leg AKA status. Right leg BKA status. Neuro-cranial nerves II through XII intact, motor and sensory function within normal limits, strength symmetrical, no focal deficits Psych-normal affect, normal mood Discharge Data Allergies Allergy/AdvReac Type Severity Reaction Status Date / Time No Known Allergies Allergy Unknown Verified 11/25/22 18:46 Consultations 11/25/22 18:03 Consult General Surgery Stat 11/25/22 19:54 ED Decision to Admit Stat 11/27/22 09:59 Consult Gastroenterology Routine Procedures Performed Operation Date: 11/28/22 17:15 <No data on this case meets the specified criteria> Ordered Studies 11/25/22 16:00 CT abd pelvis IV con only Stat Hospital Course (1) Perirectal abscess: Status post incision and drainage, postoperative day #4. E. coli isolated which is pansensitive. Treated while hospitalized with intravenous Zosyn. He will be discharged on oral Augmentin therapy. Appreciate surgical consultation and recommendations. Colonoscopy will be done as an outpatient at a later date. Appreciate gastroenterology consultation and recommendations (2) Rectal bleeding: Most likely secondary to the perirectal abscess. Now resolved. Hemoglobin stable (3) Fever: Present on admission. Due to perirectal abscess. Now resolved (4) Type I diabetes mellitus, uncontrolled: ADA diet. Continue insulin therapy per pump. Sliding scale coverage as needed. (5) Gastric wall thickening: Mild nonspecific thickening at gastric antrum per CT abd. GI on consult appreciated. EGD will be done as an outpatient (6) Stage III pressure ulcer: Sacral decubitus area. Routine wound care. (7) COPD (chronic obstructive pulmonary disease): Stable. Continue current medical management . Not on inhalers. (8) CAD (coronary artery disease): s/p CABGx1. Stable. Continue home Plavix and baby ASA. (9) Aortic stenosis: s/p aortic valve replacement in 2016 ([facility] [place] (10) Hypothyroidism: Continue home levothyroxine 175mcg. (11) Hypertension: Continue home chlorthalidone. (12) Dyslipidemia: Continue home atorvastatin and ezetimibe. (13) Below-knee amputation of right lower extremity: Small scab wound noted. Routine wound care. (14) Above knee amputation of left lower extremity: Does not yet have prosthesis. Wound care management. Plan discharge to home today, November 29, on Augmentin . EGD and colonoscopy will be done as an outpatient at a later date per gastroenterology Total Time Total Time Spent Total Time Spent (In Minutes): 40 minutes Discharge Plan Discharge Items Patient Disposition: Home - Home Health Services Reason For Visit: PERIRECTAL ABSCESS Discharge Diagnosis: Perirectal abscess, lower GI bleed, hypokalemia, gastric wall thickening Condition on Discharge: Good Activity: Resume your previous activity Non-emergency contact: Primary Care Provider Call non-emergency contact if: you have any medication questions Follow-up/Referrals: Jeremias Morton DO [Primary Care Provider] - Diet: Carb Consistent or DM2 and Heart Healthy Addtl Attending Provider Instructions: Take Augmentin antibiotic twice daily as directed. Follow-up with surgery in 1 week. Pending Studies at Discharge: No Stand-Alone Forms: My [facility], Smoking Cessation Medications and DC Order Prescriptions: New amoxicillin-pot clavulanate 875-125 mg tablet 1 tab PO BID Qty: 20 0RF Continued polyethylene glycol 3350 [Miralax] 17 gram/dose powder 17 g PO DAILY ferrous sulfate 325 mg (65 mg iron) tablet,delayed release (DR/EC) 325 mg PO BID Qty: 60 5RF atorvastatin [Lipitor] 80 mg tablet 80 mg PO HS Qty: 90 3RF chlorthalidone 25 mg tablet 25 mg PO QAM Qty: 90 3RF folic acid 1 mg tablet 1 mg PO QAM Qty: 30 5RF Patient Comments: PT CURRENLTY NOT TAKING/WAITING FOR PHARMACY levothyroxine [Synthroid] 175 mcg tablet 175 mcg PO QAM Qty: 90 2RF potassium chloride 20 mEq tablet extended release 20 meq PO BID Qty: 60 3RF Rx Instructions: take 1 tablet by mouth twice a day metoprolol tartrate 25 mg tablet 12.5 mg PO BID Qty: 90 3RF calcitriol [Rocaltrol] 0.25 mcg capsule 0.25 mcg PO QAM Qty: 30 5RF clopidogrel [Plavix] 75 mg tablet 75 mg PO QAM Qty: 30 5RF Patient Comments: LAST DOSE YESTERDAY , TOLD TO STOP UNTIL AFTER SURGERY pantoprazole [Protonix] 40 mg tablet,delayed release (DR/EC) 40 mg PO UD PRN (Reason: Acid Reflux) Qty: 90 3RF ezetimibe 10 mg tablet 10 mg PO DAILY Qty: 30 2RF Adult 50 Plus Probiotic 4 billion cell capsule 4,000 mmu cells PO QAM Rx Instructions: administer with a meal acetaminophen [Tylenol Extra Strength] 500 mg tablet 1,000 mg PO Q8 PRN (Reason: Pain) nystatin 100,000 unit/gram powder 1 applic topical BID PRN (Reason: Skin Irritation) Patient Comments: ABOUT OUT OF , NEED TO SEE IF I CAN GET A REFILL Rx Instructions: apply to groin oxycodone 5 mg Tablet 5 - 10 mg PO Q4 PRN (Reason: pain) Qty: 30 0RF tramadol 50 mg tablet 50 - 100 mg PO Q6H PRN (Reason: pain) Qty: 20 0RF Rx Instructions: initial therapy for breakthrough pain insulin aspart U-100 [Novolog U-100 Insulin aspart] 100 unit/mL solution 0 unit continuous subcutaneous infusion DAILY Rx Instructions: PT UNSURE OF BASAL RATE/DOSE VARIES DEPENDING ON CARB INTAKE. Stephanie Butt Paste 16 % ointment 1 applic EXT TID menthol-zinc oxide [Calmoseptine] 0.44-20.6 % ointment 1 applic EXT TID aspirin [Mohit Low Dose Aspirin] 81 mg tablet,delayed release (DR/EC) 81 mg PO QAM docusate sodium [Colace] 100 mg Capsule 100 mg PO DIRECTED PRN (Reason: Constipation) magnesium oxide 400 mg (241.3 mg magnesium) Tablet 400 mg PO QAM Qty: 30 0RF Discharge Orders: Discharge Order (Routine); Ordered 11/29/22 Ordered By: Alexis Luis Admission Data Admit Date/Time: 11/25/22 22:25 Attending Provider: Alexis Luis Admit Provider: Rony Vo Primary Care Provider: Jeremias Morton Other Providers: Klever Hawley ; Patrick Cohen ; [facility] ; Elaine Velasquez ; Alphonso Rivera ; Rebecca Scott ; Ashia Hilliard ; Cheryl Paul ; Kaur Lopez ; Aden Encarnacion ; Sagar Dunn ; Lucia Diaz ; Heidi Dixon ; Rinku Hassan ; Elena Hayes ; Lizbeth Molina ; Heike Tomas ; Luz Elena Mcclain ; Cathy Taylor ; Maged Sen ; Dimitris Pugh ; Lorena Crooks ; Jayden Vicente Jr Coding Level of Care Code 91760 INP/OBS DISCH >30 MIN Diagnoses Perirectal abscess K61.1 Rectal bleeding K62.5 Fever R50.9 Type I diabetes mellitus, uncontrolled Gastric wall thickening K31.89 Stage III pressure ulcer L89.93 COPD (chronic obstructive pulmonary disease) J44.9 CAD (coronary artery disease) I25.10 Coronary Disease-Associated Artery/Lesion type: [place] artery [place] vs. transplanted heart: [place] heart Associated angina: without angina Aortic stenosis I35.0 Hypothyroidism E03.9 Hypothyroidism type: unspecified Hypertension I10 Hypertension type: unspecified Dyslipidemia E78.5 Below-knee amputation of right lower extremity S88.111A Above knee amputation of left lower extremity S78.112A
--- NOTE | 2022-11-29 14:25 | Hospitalist Progress Note ---
Date of Service November 29, 2022 Assessment & Plan (1) Perirectal abscess: Plan: Status post incision and drainage, postoperative day #4. E. coli isolated which is pansensitive. He will remain on intravenous Zosyn and Flagyl per surgery request. Anticipated discharge to home today, November 29, has been postponed. Hopefully he will eventually be discharged on oral antibiotics. Appreciate surgical consultation and recommendations. Colonoscopy will be done as an ou tpatient at a later date. Appreciate gastroenterology consultation and recommendations (2) Rectal bleeding: Plan: Most likely secondary to the perirectal abscess. Now resolved. Hemoglobin stable (3) Fever: Plan: Present on admission. Due to perirectal abscess. Now resolved (4) Type I diabetes mellitus, uncontrolled: Plan: ADA diet. Continue insulin therapy per pump. Sliding scale coverage as needed. (5) Gastric wall thickening: Plan: Mild nonspecific thickening at gastric antrum per CT abd. GI on consult apprec iated. EGD will be done as an outpatient (6) Stage III pressure ulcer: Plan: Sacral decubitus area. Routine wound care. (7) COPD (chronic obstructive pulmonary disease): Plan: Stable. Continue current medical management . Not on inhalers. (8) CAD (coronary artery disease): Plan: s/p CABGx1. Stable. Continue home Plavix and baby ASA. (9) Aortic stenosis: Plan: s/p aortic valve replacement in 2016 ([facility] [place] (10) Hypothyroidism: Plan: Continue home levothyroxine 175mcg. (11) Hypertension: Plan: Continue home chlorthalidone. (12) Dyslipidemia: Plan: Continue home atorvastatin and ezetimibe. (13) Below-knee amputation of right lower extremity: Plan: Small scab wound noted. Routine wound care. 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 Wound care management. Plan Continue intravenous antibiotics while hospitalized. Hopeful eventual discharge to home on oral antibiotic therapy. EGD and colonoscopy will be done as an outpatient at a later date per gastroenterology Admission and Anticipated Discharge Date Admission Date: November 25, 2022 Subjective Anticipated discharge to home with home health services has been canceled. Surgery would like him to remain on intravenous antibiotics for the time being. Review of Systems Review of Systems: Constitutional-no fever or chills ENT-no blurred vision, no double vision, no epistaxis, no sore throat Respiratory-no cough, no wheezing, no shortness of breath Cardiac-no palpitations, no chest pain, no syncope GI-no nausea, vomiting, diarrhea, melena, hematochezia -no urinary retention, no urinary incontinence, no dysuria, no hematuria Musculoskeletal-no joint pain, no muscle tenderness Skin-no bruising, no rashes, no pruritus Neuro-no isolated weakness, no paresthesia, no weakness Psych-no depression, no anxiety Physical Exam Physical Exam: General-alert and oriented x3, no fevers, no chills HEENT-head atraumatic and normocephalic, pupils equal and reactive to light, extraocular muscles intact Neck-no lymphadenopathy or thyromegaly, trachea midline Chest-clear to auscultation percussion. No rales wheezing or rhonchi Cardiac-regular rate and rhythm, normal S1 and S2 Abdomen-normal bowel sounds, nontender, no hepatosplenomegaly Extremities-left leg AKA status. Right leg BKA status. Neuro-cranial nerves II through XII intact, motor and sensory function within normal limits, strength symmetrical, no focal deficits Psych-normal affect, normal mood Results & Data Results & Data Vital Signs (Past 12 Hours) Vital Signs Temp Pulse Resp BP Pulse Ox O2 Del Method 11/29/22 12:13 36.7 C 73 16 144/84 H 95 Room Air 11/29/22 07:48 36.8 C 74 16 135/75 96 Room Air 11/29/22 04:00 36.8 C 81 20 160/87 H 93 Room Air Laboratory Results 11/29/22 08:21 11/29/22 08:21 PG Care Time/CCT Total # of Minutes Spent Total Time Spent with Patient: Total time spent is greater than 50% in coordination of care (as documented) at patient's floor/unit and/or counseling patient: Coding Level of Care Code 30385 SUB INP/OBS CARE 3/50MIN Diagnoses Perirectal abscess K61.1 Rectal bleeding K62.5 Fever R50.9 Type I diabetes mellitus, uncontrolled Gastric wall thickening K31.89 Stage III pressure ulcer L89.93 COPD (chronic obstructive pulmonary disease) J44.9 CAD (coronary artery disease) I25.10 Coronary Disease-Associated Artery/Lesion type: [place] artery [place] vs. transplanted heart: [place] heart Associated angina: without angina Aortic stenosis I35.0 Hypothyroidism E03.9 Hypothyroidism type: unspecified Hypertension I10 Hypertension type: unspecified Dyslipidemia E78.5 Below-knee amputation of right lower extremity S88.111A Above knee amputation of left lower extremity S78.112A (8) CAD (coronary artery disease) Coronary Disease-Associated Artery/Lesion type: [place] artery [place] vs. transplanted heart: [place] heart Associated angina: without angina Qualified Code(s): I25.10 - Atherosclerotic heart disease of [place] coronary artery w ithout angina pectoris (10) Hypothyroidism Hypothyroidism type: unspecified Qualified Code(s): E03.9 - Hypothyroidism, unspecified (11) Hypertension Hypertension type: unspecified Qualified Code(s): I10 - Essential (primary) hypertension
[2022-11-29] MEDS ORDERED: PIPERACILLIN/TAZOBACTAM 3.375 GM in DEXTROSE 5% 100 ML IV SCH (14:30)
--- NOTE | 2022-11-29 15:09 | Surgery Progress Note ---
Date of Service November 29, 2022 Assessment & Plan (1) [place]-rectal abscess: Plan: POD # 4 s/p I&D of perirectal abscess ? perforated rectum vs rectal mass on CT scan afebrile, vss leukocytosis resolved postop pain controlled and improving 11/29/2022: Patient agreeable to packing change today. Packing note present in wound (must have fallen out with previous dressing changes) Copious amount of purulent/feculent drainage from wound today Plan: Continue IV antibitiocs, do not feel he is ready for discharge today. Would recommend continuing zosyn and add IV flagyl for further coverage given the copious drainage and to cover any anaerobes given possible rectal perforation/fistula daily dressing changes and as needed keep packing in wound Duarte drain to stay into wound to allow drainage Discussed with Dr. Luis today, discharge will be postponed Follow-up with GI for EGD/Colonoscopy in 6-[address] scan prior Would also suggest outpatient Colorectal referral Dr. Sharp has seen and examined pt and agrees with above. Admission and Anticipated Discharge Date Admission Date: November 25, 2022 Subjective pain continues to improve but having a lot of loose stools and drainage. plan was for discharge home today with sister in law helping with dressing/packing changes patient seen with wound care nurse She Physical Exam Constitutional: WD/WN, vitals as above cooperative and comfortable; no acute distress and not ill appearing Neck: neck not thick Respiratory: normal respiratory effort; no respiratory distress Gastrointestinal (Abdomen): external rectal exam: There is copious amount of purulent/feculent drainage from wound with surrounding erythema . Tender to palpation. There is Orient drain in place but no packing was visible into wound. Wound probed tracking medially and inferiorly. Results & Data Vital Signs (Past 12 Hours) Vital Signs Temp Pulse Resp BP Pulse Ox O2 Del Method 11/29/22 12:13 36.7 C 73 16 144/84 H 95 Room Air 11/29/22 07:48 36.8 C 74 16 135/75 96 Room Air 11/29/22 04:00 36.8 C 81 20 160/87 H 93 Room Air Laboratory Results 11/29/22 11/29/22 11/29/22 Range/Units 12:04 11:06 11:05 WBC (4.8-10.8) K/ul RBC (4.70-6.10) M/uL Hgb (14.0-18.0) g/dl Hct (42.0-52.0) % MCV (80.0-100.0) fL MCH (25.0-34.0) pg MCHC (32.0-36.0) g/dL RDW Std Deviation (36.4-46.3) fL RDW Coeff of Chan (11.5-14.5) % Plt Count (130-400) K/uL MPV (9.4-12.4) fL Immature Gran % (Auto) % Neut % (Auto) % Lymph % (Auto) % [place] % (Auto) % Eos % (Auto) % Baso % (Auto) % Neut # (Auto) (1.40-6.50) K/uL Lymph # (Auto) (1.2-3.4) K/uL [place]t # (Auto) (0.11-0.59) K/uL Eos # (Auto) (0-0.50) K/uL Baso # (Auto) (0-0.2) K/uL Immature Gran # (Auto) (0.01-0.20) K/uL Sodium (136-145) mmol/L Potassium (3.5-5.1) mmol/L Chloride (98-107) mmol/L Carbon Dioxide (21-32) mmol/L Anion Gap (3-11) BUN (6-23) mg/dl Creatinine (0.6-1.4) mg/dl Est Cr Clr Drug Dosing ml/min Est GFR ( Amer) ml/min Est GFR (Non-Af Amer) ml/min BUN/Creatinine Ratio (10-20) Glucose (70-99(Fasting)) mg/dl POC Glucose 291 H 315 H* 301 H* (70-99) mg/dl Calcium (8.5-10.1) mg/dl 11/29/22 11/29/22 11/29/22 Range/Units 08:21 08:21 07:38 WBC 8.18 (4.8-10.8) K/ul RBC 4.43 L (4.70-6.10) M/uL Hgb 11.6 L (14.0-18.0) g/dl Hct 35.1 L (42.0-52.0) % MCV 79.2 L (80.0-100.0) fL MCH 26.2 (25.0-34.0) pg MCHC 33.0 (32.0-36.0) g/dL RDW Std Deviation 44.6 (36.4-46.3) fL RDW Coeff of Chan 15.4 H (11.5-14.5) % Plt Count 403 H (130-400) K/uL MPV 9.3 L (9.4-12.4) fL Immature Gran % (Auto) 0.4 % Neut % (Auto) 63.1 % Lymph % (Auto) 19.3 % Knott % (Auto) 11.9 % Eos % (Auto) 4.6 % Baso % (Auto) 0.7 % Neut # (Auto) 5.16 (1.40-6.50) K/uL Lymph # (Auto) 1.58 (1.2-3.4) K/uL [place]nott # (Auto) 0.97 H (0.11-0.59) K/uL Eos # (Auto) 0.38 (0-0.50) K/uL Baso # (Auto) 0.06 (0-0.2) K/uL Immature Gran # (Auto) 0.03 (0.01-0.20) K/uL Sodium 131 L (136-145) mmol/L Potassium 3.9 D (3.5-5.1) mmol/L Chloride 93 L (98-107) mmol/L Carbon Dioxide 32 (21-32) mmol/L Anion Gap 6 (3-11) BUN 12 (6-23) mg/dl Creatinine 0.79 (0.6-1.4) mg/dl Est Cr Clr Drug Dosing 90.2 ml/min Est GFR ( Amer) 109.2 ml/min Est GFR (Non-Af Amer) 94.2 ml/min BUN/Creatinine Ratio 15.2 (10-20) Glucose 361 H* (70-99(Fasting)) mg/dl POC Glucose 290 H (70-99) mg/dl Calcium 8.7 (8.5-10.1) mg/dl 11/28/22 11/28/22 Range/Units 20:14 16:43 WBC (4.8-10.8) K/ul RBC (4.70-6.10) M/uL Hgb (14.0-18.0) g/dl Hct (42.0-52.0) % MCV (80.0-100.0) fL MCH (25.0-34.0) pg MCHC (32.0-36.0) g/dL RDW Std Deviation (36.4-46.3) fL RDW Coeff of Chan (11.5-14.5) % Plt Count (130-400) K/uL MPV (9.4-12.4) fL Immature Gran % (Auto) % Neut % (Auto) % Lymph % (Auto) % [place] % (Auto) % Eos % (Auto) % Baso % (Auto) % Neut # (Auto) (1.40-6.50) K/uL Lymph # (Auto) (1.2-3.4) K/uL Knott # (Auto) (0.11-0.59) K/uL Eos # (Auto) (0-0.50) K/uL Baso # (Auto) (0-0.2) K/uL Immature Gran # (Auto) (0.01-0.20) K/uL Sodium (136-145) mmol/L Potassium (3.5-5.1) mmol/L Chloride (98-107) mmol/L Carbon Dioxide (21-32) mmol/L Anion Gap (3-11) BUN (6-23) mg/dl Creatinine (0.6-1.4) mg/dl Est Cr Clr Drug Dosing ml/min Est GFR ( Amer) ml/min Est GFR (Non-Af Amer) ml/min BUN/Creatinine Ratio (10-20) Glucose (70-99(Fasting)) mg/dl POC Glucose 158 H 123 H (70-99) mg/dl Calcium (8.5-10.1) mg/dl
[2022-11-29] MEDS: metroNIDAZOLE 500 MG/100 ML BAG IV SCH ×2 (15:23→21:20)
[2022-11-29] MEDS ORDERED: LANTUS PER UNIT CHARGE SQ ONE (15:30)
[2022-11-29] MEDS: ATORVASTATIN 40 MG TAB PO SCH (21:09)
[2022-11-30] MEDS: ONDANSETRON INJ 2 MG/ML 2 ML VIAL IV PRN (05:28)
[2022-11-30] MEDS: metroNIDAZOLE 500 MG/100 ML BAG IV SCH ×3 (05:33→21:59)
[2022-11-30] MEDS: LEVOTHYROXINE SODIUM 175 MCG TABLET PO SCH (05:33)
[2022-11-30] MEDS ORDERED: ALUMINUM/MAGNESIUM/SIMETH (MAALOX MAX) 30 ML UDC PO PRN (06:30)
[2022-11-30 07:27] LABS: Calcium 8.9 mg/dl (8.5-10.1); Creatinine Clr Calc Pharmacy 71.3 ml/min; Est GFR (African American) 91.1 ml/min; Est GFR (Non-African American) 78.6 ml/min; Potassium 4.5 mmol/L (3.5-5.1)
[2022-11-30 07:37] LABS: Basophils # (auto) 0.07 K/uL (0-0.2); Basophils % (auto) 0.5 %; Eosinophils # (auto) 0.12 K/uL (0-0.50); Eosinophils % (auto) 0.8 %; Hematocrit (blood only) 36.1 % (42.0-52.0); Hemoglobin 11.2 g/dl (14.0-18.0); Immature Granulocytes # (auto) 0.11 K/uL (0.01-0.20); Immature Granulocytes % (auto) 0.7 %; Lymphocytes # (auto) 1.31 K/uL (1.2-3.4); Lymphocytes % (auto) 8.5 %; Mean Corpuscular Hemoglobin 26.2 pg (25.0-34.0); Mean Corpuscular Volume 84.5 fL (80.0-100.0); Mean Platelet Volume 9.5 fL (9.4-12.4); Monocytes # (auto) 1.15 K/uL (0.11-0.59); Monocytes % (auto) 7.4 %; Neutrophils # (auto) 12.68 K/uL (1.40-6.50); Neutrophils % (auto) 82.1 %; Platelet Count 453 K/uL (130-400); RDW Coefficient of Variation 14.8 % (11.5-14.5); RDW Standard Deviation 45.4 fL (36.4-46.3); Red Blood Count 4.27 M/uL (4.70-6.10); White Blood Count 15.44 K/ul (4.8-10.8)
[2022-11-30] MEDS ORDERED: LANTUS PER UNIT CHARGE SQ SCH ×2 (08:00→09:00)
[2022-11-30] MEDS: INSULIN ASPART PER UNIT CHARGE SC SCH (08:10)
[2022-11-30] MEDS: PIPERACILLIN/TAZOBACTAM 3.375 GM in DEXTROSE 5% 100 ML IV SCH ×2 (09:20→16:14)
[2022-11-30] MEDS: MAGNESIUM OXIDE 400 MG TAB PO SCH (09:32)
[2022-11-30] MEDS: CHLORTHALIDONE 25 MG TAB PO SCH (09:32)
[2022-11-30] MEDS: CALCITRIOL 0.25 MCG CAPSULE PO SCH (09:32)
[2022-11-30] MEDS: FERROUS SULFATE 325 MG TAB PO SCH ×2 (09:32→20:19)
[2022-11-30] MEDS: POTASSIUM CHLORIDE CRTAB 20 MEQ TABCR PO SCH ×2 (09:32→20:21)
[2022-11-30] MEDS: PANTOprazole 40 MG TAB PO PRN (09:32)
[2022-11-30] MEDS: METOPROLOL TARTRATE 25 MG TAB PO SCH ×2 (09:32→20:05)
[2022-11-30] MEDS: CLOPIDOGREL BISULFATE 75 MG TAB PO SCH (09:33)
[2022-11-30] MEDS: ADVANCED PROBIOTIC 1250 MG CAPSULE PO SCH (09:33)
[2022-11-30] MEDS: FOLIC ACID 1 MG TAB PO SCH (09:33)
[2022-11-30] MEDS: EZETIMIBE 10 MG TABLET PO SCH (09:33)
[2022-11-30] MEDS: ASPIRIN 81 MG ECTAB PO SCH (09:33)
[2022-11-30] MEDS: MENTHOL-ZINC OXIDE 360 APPLN/120 GM TUBE EXT SCH ×3 (09:33→20:20)
[2022-11-30] MEDS: BUTT PASTE (ZINC OXIDE 16%) 171 APPLN/57 GM JAR EXT SCH ×3 (09:34→20:22)
[2022-11-30] MEDS: ACETAMINOPHEN 325 MG TAB PO PRN (09:42)
[2022-11-30] MEDS ORDERED: INSULIN ASPART 100 UNITS/ML VIAL SC PRN (10:45)
[2022-11-30] MEDS ORDERED: INSULIN, Rapid-Acting PUMP SCH (11:30)
[2022-11-30] MEDS: INSULIN, Rapid-Acting PUMP SCH ×3 (11:38→17:40)
[2022-11-30] MEDS ORDERED: OPTIRAY 350 100ml IV ONE (12:07)
[2022-11-30] MEDS: HYDROmorphone INJ 0.5 MG/0.5 ML SYR IV PRN (12:41)
--- NOTE | 2022-11-30 14:18 | CT Scan Report ---
CT OF THE ABDOMEN AND PELVIS WITH CONTRAST CLINICAL HISTORY: s/p I and D perirectal abscess; increasing WBC? rectal perforation COMPARISON STUDY: CT of the abdomen and pelvis November 25, 2022. TECHNIQUE: Following IV administration of 86 mL of Optiray, axial images of the abdomen and pelvis we re obtained from the lung bases to the proximal femurs. Images were reviewed in the axial, sagittal, and coronal planes. IV contrast was administered without complication. Automated exposure control wa s utilized for the study. A dose lowering technique was utilized adhering to the principles of ALARA . CT DOSE: 919.71 mGycm FINDINGS: Lung bases are unremarkable. No pneumatosis, free air or portal venous gas is present. Live r, spleen, left adrenal gland and pancreas are unremarkable. There is no biliary or pancreatic ductal dilatation. Multiple bilateral renal calculi measure up to 6 mm. There are no ureteral calculi. Ther e is no hydronephrosis. A 2.5 cm right adrenal nodule is unchanged from earlier exams. This is benign given stability. Bladder is mildly distended. There is extensive aortoiliac plaque. Multiple stents are noted. These findings are suboptimally assessed on this non-CTA exam but appear similar to CT of November 25, 2022. There is persistent asymmetric left rectal wall thickening with adjacent inflammation . This is similar to prior CT. A complex gas and fluid containing left perirectal collection is again noted consistent with a perirectal abscess with transsphincteric component. The more inferior compon ent within the left perineum has nearly completely resolved following incision and drainage. There is a tiny residual pocket of fluid that measures 2.4 x 0.9 cm. The more superior component within the l eft ischiorectal/ischioanal fossa persists. This has slightly decreased in size since prior exam. Thi s measures 5 x 1.8 cm. It previously measured 5.6 x 2 cm. There is a suspected small right perirectal component at the 11:00 position. No new fluid collections are present. IMPRESSION: 1. Complex left perirectal abscess with transsphincteric component. Near-complete resolution of the m ore inferior perineal component. Persistent more superior component within the left ischiorectal/isch ioanal fossa, mildly decreased in size since prior exam, measuring 5 x 1.8 cm. Tiny right perirectal component at the 11:00 position. Persistent asymmetric left perirectal wall thickening with adjacent inflammation. The findings raise the possibility of a contained rectal perforation. No new collection s. Nonemergent colonoscopy once symptoms resolve is recommended to exclude the possibility of an unde rlying mass. 2. Bilateral nephrolithiasis. No ureteral calculi. No hydronephrosis. 3. No bowel obstruction. No new sites of bowel wall thickening. ACT 112: Negative or not required by law. Electronically signed by: Benji Oconnell M.D. 11/30/2022 2:17 PM
--- NOTE | 2022-11-30 14:42 | Hospitalist Progress Note ---
Date of Service November 30, 2022 Assessment & Plan (1) Perirectal abscess: Plan: Status post incision and drainage, postoperative day #5. E. coli isolated which is pansensitive. He will remain on intravenous Zosyn and Flagyl per surgery request. Anticipated discharge to home today, November 29, has been postponed. Hopefully he will eventually be discharged on oral antibiotics. Appreciate surgical consultation and recommendations. Colonoscopy will be done as an ou tpatient at a later date. Appreciate gastroenterology consultation and recommendations (2) Rectal bleeding: Plan: Most likely secondary to the perirectal abscess. Now resolved. Hemoglobin stable (3) Fever: Plan: Present on admission. Due to perirectal abscess. Now resolved (4) Type I diabetes mellitus, uncontrolled: Plan: ADA diet. Now on insulin therapy per pump. Glucose was markedly elevated this morning, November 30, but is steadily improving with initiation of his insulin pump. (5) Gastric wall thickening: Plan: Mild nonspecific thickening at gastric antrum per CT abd. GI on consult appreciated. EGD will be done as an outpatient (6) Stage III pressure ulcer: Plan: Sacral decubitus area. Routine wound care. (7) COPD (chronic obstructive pulmonary disease): Plan: Stable. Continue current medical management . Not on inhalers. (8) CAD (coronary artery disease): Plan: s/p CABGx1. Stable. Continue home Plavix and baby ASA. (9) Aortic stenosis: Plan: [place] [place] (10) Hypothyroidism: Plan: Continue home levothyroxine 175mcg. (11) Hypertension: Plan: Continue home chlorthalidone. (12) Dyslipidemia: Plan: Continue home atorvastatin and ezetimibe. (13) Below-knee amputation of right lower extremity: Plan: Small scab wound noted. Routine wound care. 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 Wound care management. Plan Continue intravenous antibiotics while hospitalized. May need further debridement of residual perirectal abscess seen on CT scan again today, November 30. Hopeful eventual discharge to home on oral antibiotic therapy. EGD and colonoscopy will be done as an outpatient at a later date per gastroenterology Admission and Anticipated Discharge Date Admission Date: November 25, 2022 Subjective Continued considerable drainage from the I&D site of the perirectal abscess. Repeat CT scan today reveals persistent abscess collection that may need further surgical drainage. He is now back on his insulin pump and glucose has improved from greater than 500 earlier this morning. He is now on Zosyn and Flagyl. Postoperative day #5 after initial I&D. Review of Systems Review of Systems: Constitutional-no fever or chills ENT-no blurred vision, no double vision, no epistaxis, no sore throat Respiratory-no cough, no wheezing, no shortness of breath Cardiac-no palpitations, no chest pain, no syncope GI-no nausea, vomiting, diarrhea, melena, hematochezia -no urinary retention, no urinary incontinence, no dysuria, no hematuria Musculoskeletal-no joint pain, no muscle tenderness Skin-no bruising, no rashes, no pruritus Neuro-no isolated weakness, no paresthesia, no weakness Psych-no depression, no anxiety Physical Exam Physical Exam: General-alert and oriented x3, no fevers, no chills HEENT-head atraumatic and normocephalic, pupils equal and reactive to light, extraocular muscles intact Neck-no lymphadenopathy or thyromegaly, trachea midline Chest-clear to auscultation percussion. No rales wheezing or rhonchi Cardiac-regular rate and rhythm, normal S1 and S2 Abdomen-normal bowel sounds, nontender, no hepatosplenomegaly Extremities-left leg AKA status. Right leg BKA status. Neuro-cranial nerves II through XII intact, motor and sensory function within normal limits, strength symmetrical, no focal deficits Psych-normal affect, normal mood Results & Data Results & Data Vital Signs (Past 12 Hours) Vital Signs Temp Pulse Resp BP Pulse Ox O2 Del Method 11/30/22 11:24 36.5 C 78 17 111/55 L 97 Room Air 11/30/22 08:27 36.7 C 90 18 122/74 99 Room Air 11/30/22 03:40 37.1 C 86 20 115/64 97 Room Air Laboratory Results 11/30/22 06:26 11/30/22 06:26 PG Care Time/CCT Total # of Minutes Spent Total Time Spent with Patient: Total time spent is greater than 50% in coordination of care (as documented) at patient's floor/unit and/or counseling patient: Coding Level of Care Code 55560 SUB INP/OBS CARE 3/50MIN Diagnoses Perirectal abscess K61.1 Rectal bleeding K62.5 Fever R50.9 Type I diabetes mellitus, uncontrolled Gastric wall thickening K31.89 Stage III pressure ulcer L89.93 COPD (chronic obstructive pulmonary disease) J44.9 CAD (coronary artery disease) I25.10 Coronary Disease-Associated Artery/Lesion type: [place] artery [place] vs. transplanted heart: [place] heart Associated angina: without angina Aortic stenosis I35.0 Hypothyroidism E03.9 Hypothyroidism type: unspecified Hypertension I10 Hypertension type: unspecified Dyslipidemia E78.5 Below-knee amputation of right lower extremity S88.111A Above knee amputation of left lower extremity S78.112A (8) CAD (coronary artery disease) Coronary Disease-Associated Artery/Lesion type: [place] artery [place] vs. transplanted heart: [place] heart Associated angina: without angina Qualified Code(s): I25.10 - Atherosclerotic heart disease of [place] coronary artery without angina pectoris (10) Hypothyroidism Hypothyroidism type: unspecified Qualified Code(s): E03.9 - Hypothyroidism, unspecified (11) Hypertension Hypertension type: unspecified Qualified Code(s): I10 - Essential (primary) hypertension
[2022-11-30] MEDS ORDERED: Nursing to Pharmacy Communication SCH (18:00)
[2022-11-30] MEDS: ATORVASTATIN 40 MG TAB PO SCH (20:20)
[2022-11-30] MEDS: oxyCODONE/ACETAMINOPHEN 5mg/325mg TAB PO PRN (21:40)
[2022-11-30] MEDS: SODIUM CHLORIDE 0.9% 1000ML 1,000 ML IV SCH (21:58)
[2022-12-01] MEDS: INSULIN, Rapid-Acting PUMP SCH ×8 (00:58→20:27)
[2022-12-01] MEDS: PIPERACILLIN/TAZOBACTAM 3.375 GM in DEXTROSE 5% 100 ML IV SCH ×3 (01:01→16:01)
[2022-12-01] MEDS: oxyCODONE/ACETAMINOPHEN 5mg/325mg TAB PO PRN ×3 (05:14→18:00)
[2022-12-01] MEDS: metroNIDAZOLE 500 MG/100 ML BAG IV SCH ×3 (06:17→22:19)
[2022-12-01] MEDS: LEVOTHYROXINE SODIUM 175 MCG TABLET PO SCH (06:18)
--- NOTE | 2022-12-01 07:16 | Anesthesiology Consultation ---
Date of Service December 01, 2022 Assessment & Plan (1) Encounter for pre-operative examination: Chart Review Chart Review: Acceptable Risk for Surgery and Patient NOT seen in Pre Admission Testing Consults Requested none Additional Notes BS extremely elevated >500 on 11/30, improved to 140's on last check History Surgery Operation Date: 11/25/22 20:05 Proposed Procedures p incision and drainage bonifacio rectal abscess - Klever Hawley MD Operation Date: 11/28/22 17:15 Proposed Procedures p Colonoscopy EGD Valeriy - Lorena Crooks DO Operation Date: 12/01/22 10:25 Proposed Procedures p Perirectal Abscess - Tj Sharp MD Height/Weight Height: 5 ft 8 in Weight: 71.3 kg Allergies Allergy/AdvReac Type Severity Reaction Status Date / Time No Known Allergies Allergy Unknown Verified 11/25/22 18:46 Medications Home Medications Medication Instructions Recorded Confirmed Last Taken aspirin 81 mg tablet,delayed 81 mg PO QAM 05/04/21 11/25/22 11/25/22 release (Mohit Low Dose Aspirin) ferrous sulfate 325 mg (65 mg 325 mg PO BID #60 tabs 08/03/21 11/25/22 11/25/22 08:00 iron) tablet,delayed release lactobacillus combination no.9 4 4,000 mmu cells PO QAM 08/04/21 11/25/22 11/25/22 billion cell capsule (Adult 50 Plus Probiotic) atorvastatin 80 mg tablet (Lipitor) 80 mg PO HS #90 tabs 11/15/21 11/25/22 11/24/22 docusate sodium 100 mg capsule 100 mg PO DIRECTED PRN 01/04/22 11/25/22 06/16/22 (Colace) Constipation chlorthalidone 25 mg tablet 25 mg PO QAM #90 tabs 05/20/22 11/25/22 11/25/22 folic acid 1 mg tablet 1 mg PO QAM #30 tabs 06/23/22 11/25/22 11/25/22 levothyroxine 175 mcg tablet 175 mcg PO QAM #90 tabs 07/01/22 11/25/22 11/25/22 (Synthroid) magnesium oxide 400 mg (241.3 mg 400 mg PO QAM #30 tabs 07/07/22 11/25/22 11/25/22 magnesium) tablet acetaminophen 500 mg tablet 1,000 mg PO Q8 PRN Pain 07/18/22 11/25/22 Unknown (Tylenol Extra Strength) nystatin 100,000 unit/gram topical 1 applic topical BID PRN Skin 07/18/22 11/25/22 Unknown powder Irritation oxycodone 5 mg tablet 5 - 10 mg PO Q4 PRN pain #30 tabs 07/22/22 11/25/22 Unknown tramadol 50 mg tablet 50 - 100 mg PO Q6H PRN pain #20 07/22/22 11/25/22 Unknown tabs metoprolol tartrate 25 mg tablet 12.5 mg PO BID #90 tabs 08/08/22 11/25/22 11/25/22 08:00 potassium chloride 20 mEq 20 meq PO BID #60 tabs 08/08/22 11/25/22 11/25/22 08:00 tablet,extended release calcitriol 0.25 mcg capsule 0.25 mcg PO QAM #30 caps 08/19/22 11/25/22 11/25/22 (Rocaltrol) clopidogrel 75 mg tablet (Plavix) 75 mg PO QAM #30 tabs 08/19/22 11/25/22 11/25/22 polyethylene glycol 3350 17 17 g PO DAILY 08/23/22 11/25/22 11/25/22 gram/dose oral powder (Miralax) pantoprazole 40 mg tablet,delayed 40 mg PO UD PRN Acid Reflux #90 10/28/22 11/25/22 Unknown release (Protonix) tabs ezetimibe 10 mg tablet 10 mg PO DAILY #30 tabs 11/14/22 11/25/22 11/25/22 insulin aspart U-100 100 unit/mL 0 unit continuous subcutaneous 11/25/22 11/25/22 Unknown subcutaneous solution (Novolog infusion DAILY U-100 Insulin aspart) menthol 0.44 %-zinc oxide 20.6 % 1 applic EXT TID 11/25/22 11/25/22 11/25/22 08:00 topical ointment (Calmoseptine) zinc oxide 16 % topical ointment 1 applic EXT TID 11/25/22 11/25/22 11/25/22 08:00 (B[place]reauxs Butt Paste) amoxicillin 875 mg-potassium 1 tab PO BID #20 tabs 11/29/22 Unknown clavulanate 125 mg tablet Active Medications Generic Name Dose Route Start Last Admin Trade Name Freq PRN Reason Stop Dose Admin Acetaminophen 650 mg 11/25/22 23:43 11/30/22 09:42 Acetaminophen 325 Mg Tab PO 12/25/22 22:49 650 mg Q6H PRN Administration Pain Al Hydrox/Mg Hydrox/Simethicone 30 ml 11/30/22 06:30 11/30/22 06:42 Aluminum/Magnesium/Simeth (Maalox Max) 30 Ml Udc PO 12/30/22 06:29 30 ml Q6H PRN Administration Dyspepsia Aspirin 81 mg 11/26/22 09:00 11/30/22 09:33 Aspirin 81 Mg Ectab PO 12/26/22 08:59 81 mg QAM LIZZY Administration Atorvastatin Calcium 80 mg 11/26/22 21:00 11/30/22 20:20 Atorvastatin 40 Mg Tab PO 12/26/22 20:59 80 mg HS LIZZY Administration Calamine/Phenol 1 appln 11/26/22 09:00 11/30/22 20:20 Menthol-Zinc Oxide 360 Appln/120 Gm Tube EXT 12/26/22 08:59 Not Given TID LIZZY Calcitriol 0.25 mcg 11/26/22 09:00 11/30/22 09:32 Calcitriol 0.25 Mcg Capsule PO 12/26/22 08:59 0.25 mcg QAM LIZZY Administration Chlorthalidone 25 mg 11/26/22 09:00 11/30/22 09:32 Chlorthalidone 25 Mg Tab PO 12/26/22 08:59 25 mg QAM LIZZY Administration Clopidogrel Bisulfate 75 mg 11/26/22 09:00 11/30/22 09:33 Clopidogrel Bisulfate 75 Mg Tab PO 12/26/22 08:59 75 mg QAM LIZZY Administration Ezetimibe 10 mg 11/26/22 09:00 11/30/22 09:33 Ezetimibe 10 Mg Tablet PO 12/26/22 08:59 10 mg DAILY LIZZY Administration Ferrous Sulfate 325 mg 11/26/22 09:00 11/30/22 20:19 Ferrous Sulfate 325 Mg Tab PO 12/26/22 08:59 325 mg BID LIZZY Administration Folic Acid 1 mg 11/26/22 09:00 11/30/22 09:33 Folic Acid 1 Mg Tab PO 12/26/22 08:59 1 mg QAM LIZZY Administration Hydromorphone HCl 0.5 mg 11/25/22 22:50 11/30/22 12:41 Hydromorphone Inj 0.5 Mg/0.5 Ml Syr IV 12/09/22 22:49 0.5 mg Q6H PRN Administration Pain Piperacillin Sod/Tazobactam 115 mls @ 28.75 mls/hr 11/26/22 00:00 12/01/22 05:14 Sod 3.375 gm/ Dextrose IV 12/06/22 00:00 Infused Q8H LIZZY Infusion Protocol Metronidazole 500 mg in 100 mls @ 100 mls/hr 11/29/22 14:30 12/01/22 06:17 Flagyl IV 12/09/22 14:29 100 mls/hr Q8H LIZZY Administration Sodium Chloride 1,000 mls @ 80 mls/hr 11/30/22 22:00 11/30/22 21:58 Nss 1000ml IV 12/30/22 21:59 80 mls/hr .[id number] LIZZY Administration Insulin Aspart 0 units 11/28/22 16:30 11/30/22 08:10 Insulin Aspart Per Unit SC 12/28/22 16:29 20 units ACHS LIZZY Administration Insulin Aspart 1 each 12/01/22 06:00 12/01/22 06:17 Insulin, Rapid-Acting Pump N/A 12/31/22 05:59 1 each Q6 LIZZY Administration Protocol Lactobacillus Acidophilus 2 cap 11/26/22 09:00 11/30/22 09:33 Advanced Probiotic 1250 Mg Capsule PO 12/26/22 08:59 2 cap QAM LIZZY Administration Levothyroxine Sodium 175 mcg 11/26/22 06:30 12/01/22 06:18 Levothyroxine Sodium 175 Mcg Tablet PO 12/26/22 06:29 175 mcg DAILYBB LIZZY Administration Magnesium Oxide 400 mg 11/26/22 09:00 11/30/22 09:32 Magnesium Oxide 400 Mg Tab PO 12/26/22 08:59 400 mg QAM LIZZY Administration Metoprolol Tartrate 12.5 mg 11/26/22 09:00 11/30/22 20:05 Metoprolol Tartrate 25 Mg Tab PO 12/26/22 08:59 Not Given BID LIZZY Miscellaneous 15 - 30 gm 11/25/22 20:44 11/26/22 19:19 Carbohydrates For Hypoglycemia PO 12/25/22 20:43 30 gm UD PRN Administration Hypoglycemia Protocol Ondansetron HCl 4 mg 11/30/22 05:11 11/30/22 05:28 Ondansetron Inj 2 Mg/Ml 2 Ml Vial IV 12/30/22 05:10 4 mg Q6H PRN Administration Nausea And Vomiting Oxycodone/Acetaminophen 1 tab 11/25/22 22:50 12/01/22 05:14 Oxycodone/Acetaminophen 5mg/325mg Tab PO 12/09/22 22:49 1 tab Q4H PRN Administration Pain Pantoprazole Sodium 40 mg 11/25/22 22:50 11/30/22 09:32 Pantoprazole 40 Mg Tab PO 12/25/22 22:49 40 mg DAILY PRN Administration Acid Reflux Petrolatum 1 appln 11/26/22 09:00 11/30/22 20:22 Butt Paste (Zinc Oxide 16%) 171 Appln/57 Gm Jar EXT 12/26/22 08:59 1 appln TID LIZZY Administration Potassium Chloride 20 meq 11/28/22 09:00 11/30/22 20:21 Potassium Chloride Crtab 20 Meq Tabcr PO 12/26/22 08:59 20 meq BID LIZZY Administration NPO Date Last Intake of Fluids: 11/27/22 Time Last Intake of Fluids: 00:00 Date Last Intake of Solids: 11/27/22 Time Last Intake of Solids: 17:30 Past Medical History Medical History Above knee amputation of left lower extremity Anemia Below-knee amputation of right lower extremity Candidal diaper rash Clostridium difficile colitis DVT prophylaxis Folate deficiency GERD (gastroesophageal reflux disease) History of Clostridium difficile infection s/p treatment (2020) History of colon polyps 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) Hx MRSA infection 01/2022 (left heel) Past Family History Family History Brother Family history of diabetes mellitus Sister Family history of diabetes mellitus Mother Family history of diabetes mellitus Grandmother (Maternal) Family history of diabetes mellitus Uncle Family hx of colon cancer Colorectal cancer Father Family history of esophageal cancer Sister Family history of diabetes mellitus Other No family history of adverse response to anesthesia Denies family history of Ovarian cancer Prostate cancer Myocardial infarction Breast cancer Past Surgical History Surgical History Below-knee amputation of right lower extremity H/O cataract extraction R/L H/O endarterectomy R common femoral (11/2018) H/O vascular surgery Right Femoral to Posterior tibial Prosthetic Bypass Graft(Right) History of ankle surgery LEFT ANKLE +HARDWARE REMOVED History of aortic valve replacement 2016 ([facility] [place]) History of arterial bypass of lower extremity Left femoral to PT composite bypass graft (06/2020) History of cardiac cath x2, most recent 2016 > no stents (subsequent CABG with AVR in 2015); [facility] History of carpal tunnel release R/L History of colonoscopy History of coronary artery bypass graft CABG x1 + AVR (2015) History of esophagogastroduodenoscopy (EGD) History of myringotomy w/tubes bilat. History of open reduction and internal fixation (ORIF) procedure [facility] () History of skin graft Split Thickness Skin Graft of Left Lateral Ankle (11/18/20): LMA#5, atraumatic x1 at [facility] History of tonsillectomy History of tooth extraction History of umbilical hernia repair Hx of cystoscopy w/stent placement; stent then removed Hx of surgical procedure Left Leg Wound Debridement and Irrigation S/P femoral-tibial bypass S/P femoropopliteal bypass surgery Right fem-pop bypass graft (01/19/21): Grade 2 view, MAC 3.0, ETT 8.0 at [facility] S/P insertion of iliac artery stent B/L iliac stent placement (2014) 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 Left transmetatarsal amputation (11/23/21): LMA# 5.0 at [facility]. No issues noted per post-op anesthesia progress note. HX 1 SX TO REMOVE ALL TOES LEFT FOOT NOVEMBER 2021 Social History Smoking Status: Former smoker tobacco type: cigarettes Hx Alcohol Use: No Alcohol type: beer alcohol intake frequency: holidays/special occasions only Hx Substance Use: No substance use type: does not use Physical Exam Vital Signs Last Vital Signs Temp 97.9 F 12/01/22 03:40 Pulse 68 12/01/22 03:40 Resp 18 12/01/22 03:40 BP 103/61 12/01/22 03:40 Pulse Ox 96 12/01/22 03:40 O2 Del Method Room Air 12/01/22 03:40 O2 Flow Rate 3 11/25/22 22:00 Testing Laboratory Results PT 12.4 Seconds (9.0-12.0) H 11/25/22 16:24 INR 1.2 (0.9-1.1) H 11/25/22 16:24 APTT 26.2 Seconds (21.0-31.0) 11/25/22 16:24 Blood Type A Positive 11/25/22 16:37 Antibody Screen NEGATIVE 11/25/22 16:37 11/26/22 00:26 Aerobic Blood Culture - Final Blood No growth in Aerobic bottle after 5 days. Anaerobic Blood Culture - Final No growth in Anaerobic bottle after 5 days. 11/26/22 00:34 Aerobic Blood Culture - Final Blood No growth in Aerobic bottle after 5 days. Anaerobic Blood Culture - Final No growth in Anaerobic bottle after 5 days. 11/25/22 21:17 Gram Stain - Final Rectal Abscess Aerobic and Anaerobic Culture - Final Escherichia coli Bacteroides thetaiotaomicron Bacteroides uniformis 12/01/22 12/01/22 12/01/22 06:12 03:06 02:07 POC Glucose 141 H 143 H 188 H 12/01/22 12/01/22 01:04 00:09 POC Glucose 174 H 167 H Electrocardiogram Date: 11/26/22 Findings: + NSR @ (77 with PACs) and + RBBB Echocardiogram Date: 07/11/21 LV Function: normal
[2022-12-01 07:21] LABS: BUN Creatinine Ratio 24.1 (10-20); Calcium 8.6 mg/dl (8.6-10.3); Creatinine Clr Calc Pharmacy 90.2 ml/min; Est GFR (African American) 109.2 ml/min; Est GFR (Non-African American) 94.2 ml/min; Potassium 3.5 mmol/L (3.5-5.1)
[2022-12-01] MEDS: MENTHOL-ZINC OXIDE 360 APPLN/120 GM TUBE EXT SCH ×3 (08:15→19:31)
[2022-12-01] MEDS: CHLORTHALIDONE 25 MG TAB PO SCH (08:21)
[2022-12-01] MEDS: MAGNESIUM OXIDE 400 MG TAB PO SCH (08:21)
[2022-12-01] MEDS: POTASSIUM CHLORIDE CRTAB 20 MEQ TABCR PO SCH ×2 (08:25→20:26)
[2022-12-01] MEDS: METOPROLOL TARTRATE 25 MG TAB PO SCH ×2 (08:25→20:25)
[2022-12-01] MEDS: EZETIMIBE 10 MG TABLET PO SCH (08:26)
[2022-12-01] MEDS: FOLIC ACID 1 MG TAB PO SCH (08:27)
[2022-12-01] MEDS: ADVANCED PROBIOTIC 1250 MG CAPSULE PO SCH (08:27)
[2022-12-01] MEDS: FERROUS SULFATE 325 MG TAB PO SCH ×2 (08:27→20:25)
[2022-12-01] MEDS: CALCITRIOL 0.25 MCG CAPSULE PO SCH (08:27)
[2022-12-01] MEDS: PANTOprazole 40 MG TAB PO PRN (08:27)
[2022-12-01 08:44] LABS: Basophils # (auto) 0.06 K/uL (0-0.2); Basophils % (auto) 0.5 %; Eosinophils # (auto) 0.39 K/uL (0-0.50); Eosinophils % (auto) 3.4 %; Hematocrit (blood only) 31.8 % (42.0-52.0); Hemoglobin 10.4 g/dl (14.0-18.0); Immature Granulocytes # (auto) 0.06 K/uL (0.01-0.20); Immature Granulocytes % (auto) 0.5 %; Lymphocytes # (auto) 1.52 K/uL (1.2-3.4); Lymphocytes % (auto) 13.4 %; Mean Corpuscular Hemoglobin 26.1 pg (25.0-34.0); Mean Corpuscular Hgb Conc 32.7 g/dL (32.0-36.0); Mean Corpuscular Volume 79.9 fL (80.0-100.0); Mean Platelet Volume 9.2 fL (9.4-12.4); Monocytes # (auto) 0.98 K/uL (0.11-0.59); Monocytes % (auto) 8.6 %; Neutrophils # (auto) 8.34 K/uL (1.40-6.50); Neutrophils % (auto) 73.6 %; Platelet Count 408 K/uL (130-400); RDW Coefficient of Variation 15.7 % (11.5-14.5); RDW Standard Deviation 44.7 fL (36.4-46.3); Red Blood Count 3.98 M/uL (4.70-6.10); White Blood Count 11.35 K/ul (4.8-10.8)
[2022-12-01] MEDS: BUTT PASTE (ZINC OXIDE 16%) 171 APPLN/57 GM JAR EXT SCH ×3 (10:34→20:26)
[2022-12-01] MEDS: SODIUM CHLORIDE 0.9% 1000ML 1,000 ML IV SCH (10:34)
--- NOTE | 2022-12-01 12:34 | History & Physical Bridge Note ---
Date of Service December 01, 2022 History & Physical Bridge Note I have examined the patient, reviewed the History & Physical and in the interval since the performance of the History & Physical I have noted the following changes of clinical significance: no changes noted
--- NOTE | 2022-12-01 12:36 | Surgery Progress Note ---
Date of Service December 01, 2022 Assessment & Plan (1) Marychuy-rectal abscess: Plan: POD # 6 s/p I&D of perirectal abscess ? perforated rectum vs rectal mass on CT scan CT with persistent deep collection, undrained Plan: To OR today for re-incision and drainage of deep abscess Consent obtained in preop area Admission and Anticipated Discharge Date Admission Date: November 25, 2022 Subjective Continued considerable drainage from the I&D site of the perirectal abscess. Repeat CT scan yesterday reveals persistent abscess collection. He is now back on his insulin pump and glucose has improved from greater than 500 yesterday. He is now on Zosyn and Flagyl. Postoperative day #6 after initial I&D. Results & Data Vital Signs (Past 12 Hours) Vital Signs Temp Pulse Resp BP BP Pulse Ox O2 Del Method 12/01/22 12:31 36.8 C 65 18 102/48 L 98 Room Air 12/01/22 11:12 37.0 C 60 17 113/68 96 Room Air 12/01/22 08:12 36.8 C 70 18 118/66 95 Room Air 12/01/22 03:40 36.6 C 68 18 103/61 96 Room Air
[2022-12-01] MEDS ORDERED: PROPOFOL IV EMULSION 10 MG/ML 20 ML VIAL IV ONE (12:41)
[2022-12-01] MEDS ORDERED: MIDAZOLAM HCL 1 MG/ML 2ML VIAL ONE (12:41)
[2022-12-01] MEDS ORDERED: ONDANSETRON INJ 2 MG/ML 2 ML VIAL ONE ×2 (12:41→14:04)
[2022-12-01] MEDS ORDERED: DEXAMETHASONE SOD INJ 4 MG/ML VIAL ONE (12:41)
[2022-12-01] MEDS ORDERED: fentaNYL citrate PF 100 MCG/2 ML VIAL ONE (12:42)
[2022-12-01] MEDS ORDERED: ATROPINE SULFATE 0.1 MG/ML 10ML SYR IV PRN (12:48)
[2022-12-01] MEDS ORDERED: fentaNYL citrate PF 100 MCG/2 ML VIAL IV PRN (12:48)
[2022-12-01] MEDS ORDERED: ONDANSETRON INJ 2 MG/ML 2 ML VIAL IV PRN (12:48)
[2022-12-01] MEDS ORDERED: LIDOCAINE 2% MPF LOCAL 5 ML VIAL ONE (12:49)
[2022-12-01] MEDS ORDERED: LIDOCAINE/EPINEPHRINE 1% 20 ML VIAL ONE (13:04)
--- NOTE | 2022-12-01 13:50 | Post Operative Brief Note ---
Immediate Post Op Note v1 Date of Surgery December 01, 2022 Pre & Post Diagnosis Operation Date: 12/01/22 10:25 Pre-Op Diagnosis: PERIRECTAL ABSCESS Post-Op Diagnosis: PERIRECTAL ABSCESS I identified the patient and participated in the time-out.: Yes Procedure Operation Date: 12/01/22 10:25 Actual Procedures p Perirectal Abscess(Not Applicable) - Tj Sharp MD Surgeon Tj Sharp MD [employer] Super[employer] neurosurgical physician assistant Estimated Blood Loss 2 Findings Consistent with Post-Op Diagnosis Large abscess cavity extending 10 to 11 cm cephalad, 4 to 5 cm anteriorly Drains Other (michael drainage tube, and packing the wound with kerlex)
--- NOTE | 2022-12-01 13:54 | Operative Report ---
Post Operative Report Pre & Post Diagnosis Operation Date: 12/01/22 10:25 Pre-Op Diagnosis: PERIRECTAL ABSCESS Post-Op Diagnosis: PERIRECTAL ABSCESS I identified the patient and participated in the time-out.: Yes Procedure Operation Date: 12/01/22 10:25 Actual Procedures p Perirectal Abscess(Not Applicable) - Tj Sharp MD Surgeon Tj Sharp MD Utility Person medical lab technologist Estimated Blood Loss 2 Findings Consistent with Post-Op Diagnosis Large abscess cavity 3 to 5 o'clock position extending 10 to 11 cm cephalad, 4 to 5 cm anteriorly; no large masses palpable on rectal exam; friable area of mucosa noted on left side approximately 8 cm into the rectum Specimens None Drains None Anesthesia Type General Complications No immediate complications Description of Procedure Patient was taken to the operating room, placed supine on the operating table. A timeout was performed, perioperative antibiotics were administered, SCD boots were placed. After adequate anesthesia and analgesia was obtained, the patient was placed in lithotomy position, and the area was prepped and draped in the normal sterile fashion. Packing was removed from the prior abscess cavity site. Significant amount of purulent fluid was returned. This was washed out and drained. Loculations were broken up. The cavity was copiously irrigated. The cavity extended approximately 11 cm cephalad along the left side of the rectum. It also extended anteriorly approximately 4 cm but more superficially. Concurrent rectal exam yielded no evidence of large mass in the rectum. There was an area of friable mucosa approximately 8 cm from the anal verge. The cavity was washed out copiously, and was packed with Kerlix. Dressings were applied. He tolerated the procedure without complication, was transferred in stable condition to the PACU. All instrument, needle, and sponge counts were correct at the end of the case. I attest to the content of the Intraoperative Record and any orders documented therein. Any exceptions are noted below.
[2022-12-01] MEDS ORDERED: PHENYLEPHRINE HCL 10 MG/ML VIAL ONE (14:03)
[2022-12-01] MEDS ORDERED: ePHEDrine sulfate 50 MG/ML AMP ONE (14:04)
--- NOTE | 2022-12-01 14:26 | Anesthesiology Progress Note ---
Date of Service December 01, 2022 Anesthesia Post Procedure Vital Signs Vital Signs: Temp Pulse Pulse Pulse Resp BP BP 12/01/22 14:20 71 14 107/51 L 12/01/22 14:10 73 18 113/52 L 12/01/22 14:00 73 14 119/52 L 12/01/22 13:57 36.3 C L 75 22 121/51 L 12/01/22 07:00 65 12/01/22 12:31 36.8 C 65 18 102/48 L 12/01/22 11:12 37.0 C 60 17 113/68 12/01/22 08:12 36.8 C 70 18 118/66 12/01/22 03:40 36.6 C 68 18 103/61 11/30/22 22:33 69 11/30/22 23:53 69 125/69 11/30/22 23:18 36.7 C 68 16 108/57 L 11/30/22 21:37 69 101/54 L 11/30/22 19:55 36.5 C 74 18 94/62 L 11/30/22 16:33 82 11/30/22 15:25 36.8 C 75 18 102/48 L Pulse Ox O2 Del Method O2 Flow Rate 12/01/22 14:20 95 Room Air 12/01/22 14:10 100 Oxymask 5 12/01/22 14:00 100 Oxymask 6 12/01/22 13:57 100 Oxymask 6 12/01/22 07:00 12/01/22 12:31 98 Room Air 12/01/22 11:12 96 Room Air 12/01/22 08:12 95 Room Air 12/01/22 03:40 96 Room Air 11/30/22 22:33 11/30/22 23:53 11/30/22 23:18 97 Room Air 11/30/22 21:37 11/30/22 19:55 98 Room Air 11/30/22 16:33 11/30/22 15:25 95 Room Air Pain Intensity Sacrum: Pain Intensity: 1 Rectal: Pain Intensity: 2 Transfer of Care Handoff Completed per policy Notes Mental Status: alert / awake / arousable Patient Amnestic to Procedure: Yes Nausea / Vomiting: adequately controlled Pain: adequately controlled Airway Patency, RR, SpO2: stable & adequate BP & HR: stable & adequate Hydration State: stable & adequate Anesthetic Complications: no major complications apparent
[2022-12-01] MEDS: ASPIRIN 81 MG ECTAB PO SCH (15:38)
[2022-12-01] MEDS: CLOPIDOGREL BISULFATE 75 MG TAB PO SCH (15:38)
--- NOTE | 2022-12-01 15:57 | Hospitalist Progress Note ---
Date of Service December 01, 2022 Assessment & Plan (1) Perirectal abscess: Plan: Status post first incision and drainage, postoperative day #6. He underwent the second incision and drainage procedure today. E. coli isolated the first time around which is pansensitive. He he is currently on intravenous Zosyn and Flagyl. Hopefully he will eventually be discharged on oral antibiotics. Appreciate surgical consultation and recommendations. Colonoscopy will be done as an outpatient at a later date. Appreciate gastroenterology consultation and recommendations (2) Rectal bleeding: Plan: Most likely secondary to the perirectal abscess. Now resolved. Hemoglobin stable (3) Fever: Plan: Present on admission. Due to perirectal abscess. Now resolved (4) Type I diabetes mellitus, uncontrolled: Plan: ADA diet. Now on insulin therapy per pump. Glucose was markedly elevated on November 30, but is now much better after initiation of his insulin pump. (5) Gastric wall thickening: Plan: Mild nonspecific thickening of gastric antrum per CT abd. GI consultation appreciated. EGD will be done as an outpatient (6) Stage III pressure ulcer: Plan: Sacral decubitus area. Routine wound care. (7) COPD (chronic obstructive pulmonary disease): Plan: Stable. Continue current medical management . Not on inhalers. (8) CAD (coronary artery disease): Plan: s/p CABGx1. Stable. Continue home Plavix and baby ASA. (9) Aortic stenosis: Plan: s/p aortic valve replacement in 2016 ([facility] [place]). (10) Hypothyroidism: Plan: Continue home levothyroxine 175mcg. (11) Hypertension: Plan: Continue home chlorthalidone. (12) Dyslipidemia: Plan: Continue home atorvastatin and ezetimibe. (13) Below-knee amputation of right lower extremity: Plan: Small scab wound noted. Routine wound care. 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 Wound care management. Plan Continue intravenous antibiotics while hospitalized. Hopeful transition to oral antibiotics at discharge. EGD and colonoscopy will be done as an outpatient at a later date per gastroenterology Admission and Anticipated Discharge Date Admission Date: November 25, 2022 Subjective The patient was seen postoperatively after the second debridement of the perirectal abscess. He is alert and oriented. Diet has been started and IV fluids discontinued. Insulin pump rate has been increased back to his usual baseline. Sister is at the bedside. Review of Systems Review of Systems: Constitutional-no fever or chills ENT-no blurred vision, no double vision, no epistaxis, no sore throat Respiratory-no cough, no wheezing, no shortness of breath Cardiac-no palpitations, no chest pain, no syncope GI-no nausea, vomiting, diarrhea, melena, hematochezia -no urinary retention, no urinary incontinence, no dysuria, no hematuria Musculoskeletal-no joint pain, no muscle tenderness Skin-no bruising, no rashes, no pruritus Neuro-no isolated weakness, no paresthesia, no weakness Psych-no depression, no anxiety Physical Exam Physical Exam: General-alert and oriented x3, no fevers, no chills HEENT-head atraumatic and normocephalic, pupils equal and reactive to light, extraocular muscles intact Neck-no lymphadenopathy or thyromegaly, trachea midline Chest-clear to auscultation percussion. No rales wheezing or rhonchi Cardiac-regular rate and rhythm, normal S1 and S2 Abdomen-normal bowel sounds, nontender, no hepatosplenomegaly Extremities-left leg AKA status. Right leg BKA status. Neuro-cranial nerves II through XII intact, motor and sensory function within normal limits, strength symmetrical, no focal deficits Psych-normal affect, normal mood Results & Data Results & Data Vital Signs (Past 12 Hours) Vital Signs Temp Pulse Pulse Pulse Resp BP BP 12/01/22 15:47 36.6 C 73 20 108/66 12/01/22 15:00 36.7 C 70 21 103/48 L 12/01/22 14:30 36.3 C L 70 16 106/48 L 12/01/22 14:20 71 14 107/51 L 12/01/22 14:10 73 18 113/52 L 12/01/22 14:00 73 14 119/52 L 12/01/22 13:57 36.3 C L 75 22 121/51 L 12/01/22 07:00 65 12/01/22 12:31 36.8 C 65 18 102/48 L 12/01/22 11:12 37.0 C 60 17 113/68 12/01/22 08:12 36.8 C 70 18 118/66 Pulse Ox O2 Del Method O2 Flow Rate 12/01/22 15:47 92 Room Air 12/01/22 15:00 93 Room Air 12/01/22 14:30 93 Room Air 12/01/22 14:20 95 Room Air 12/01/22 14:10 100 Oxymask 5 12/01/22 14:00 100 Oxymask 6 12/01/22 13:57 100 Oxymask 6 12/01/22 07:00 12/01/22 12:31 98 Room Air 12/01/22 11:12 96 Room Air 12/01/22 08:12 95 Room Air Laboratory Results 12/01/22 06:34 12/01/22 06:34 PG Care Time/CCT Total # of Minutes Spent Total Time Spent with Patient: Total time spent is greater than 50% in coordination of care (as documented) at patient's floor/unit and/or counseling patient: Coding Level of Care Code 28201 SUB INP/OBS CARE 350MIN Diagnoses Perirectal abscess K61.1 Rectal bleeding K62.5 Fever R50.9 Type I diabetes mellitus, uncontrolled Gastric wall thickening K31.89 Stage III pressure ulcer L89.93 COPD (chronic obstructive pulmonary disease) J44.9 CAD (coronary artery disease) I25.10 Coronary Disease-Associated Artery/Lesion type: [place] artery [place] vs. transplanted heart: [place] heart Associated angina: without angina Aortic stenosis I35.0 Hypothyroidism E03.9 Hypothyroidism type: unspecified Hypertension I10 Hypertension type: unspecified Dyslipidemia E78.5 Below-knee amputation of right lower extremity S88.111A Above knee amputation of left lower extremity S78.112A (8) CAD (coronary artery disease) Coronary Disease-Associated Artery/Lesion type: [place] artery [place] vs. transplanted heart: [place] heart Associated angina: without angina Qualified Code(s): I25.10 - Atherosclerotic heart disease of [place] coronary artery without angina pectoris (10) Hypothyroidism Hypothyroidism type: unspecified Qualified Code(s): E03.9 - Hypothyroidism, unspecified (11) Hypertension Hypertension type: unspecified Qualified Code(s): I10 - Essential (primary) hypertension
[2022-12-01] MEDS ORDERED: Nursing to Pharmacy Communication SCH (17:00)
[2022-12-01] MEDS: ATORVASTATIN 40 MG TAB PO SCH (20:25)
[2022-12-02] MEDS: PIPERACILLIN/TAZOBACTAM 3.375 GM in DEXTROSE 5% 100 ML IV SCH ×3 (00:33→16:00)
[2022-12-02] MEDS: oxyCODONE/ACETAMINOPHEN 5mg/325mg TAB PO PRN (04:38)
[2022-12-02] MEDS: metroNIDAZOLE 500 MG/100 ML BAG IV SCH ×3 (05:44→22:51)
[2022-12-02] MEDS: LEVOTHYROXINE SODIUM 175 MCG TABLET PO SCH (05:45)
[2022-12-02 07:29] LABS: Basophils # (auto) 0.05 K/uL (0-0.2); Basophils % (auto) 0.6 %; Eosinophils # (auto) 0.35 K/uL (0-0.50); Eosinophils % (auto) 4.2 %; Hematocrit (blood only) 30.1 % (42.0-52.0); Immature Granulocytes # (auto) 0.03 K/uL (0.01-0.20); Immature Granulocytes % (auto) 0.4 %; Lymphocytes # (auto) 1.37 K/uL (1.2-3.4); Lymphocytes % (auto) 16.6 %; Mean Corpuscular Hemoglobin 26.5 pg (25.0-34.0); Mean Corpuscular Hgb Conc 33.2 g/dL (32.0-36.0); Mean Corpuscular Volume 79.6 fL (80.0-100.0); Mean Platelet Volume 9.2 fL (9.4-12.4); Monocytes % (auto) 9.7 %; Neutrophils # (auto) 5.65 K/uL (1.40-6.50); Neutrophils % (auto) 68.5 %; Platelet Count 351 K/uL (130-400); RDW Coefficient of Variation 16.1 % (11.5-14.5); RDW Standard Deviation 45.6 fL (36.4-46.3); Red Blood Count 3.78 M/uL (4.70-6.10); White Blood Count 8.25 K/ul (4.8-10.8)
[2022-12-02 07:56] LABS: BUN Creatinine Ratio 15.2 (10-20); Calcium 8.1 mg/dl (8.6-10.3); Est GFR (African American) 117.6 ml/min; Est GFR (Non-African American) 101.5 ml/min; Potassium 3.5 mmol/L (3.5-5.1)
[2022-12-02] MEDS: INSULIN, Rapid-Acting PUMP SCH ×4 (08:06→20:48)
[2022-12-02] MEDS: POTASSIUM CHLORIDE CRTAB 20 MEQ TABCR PO SCH ×2 (08:32→20:45)
[2022-12-02] MEDS: METOPROLOL TARTRATE 25 MG TAB PO SCH ×2 (08:32→20:45)
[2022-12-02] MEDS: FERROUS SULFATE 325 MG TAB PO SCH ×2 (08:33→20:44)
[2022-12-02] MEDS: MAGNESIUM OXIDE 400 MG TAB PO SCH (08:34)
[2022-12-02] MEDS: PANTOprazole 40 MG TAB PO PRN (08:35)
[2022-12-02] MEDS: CLOPIDOGREL BISULFATE 75 MG TAB PO SCH (08:35)
[2022-12-02] MEDS: FOLIC ACID 1 MG TAB PO SCH (08:35)
[2022-12-02] MEDS: EZETIMIBE 10 MG TABLET PO SCH (08:35)
[2022-12-02] MEDS: CALCITRIOL 0.25 MCG CAPSULE PO SCH (08:36)
[2022-12-02] MEDS: CHLORTHALIDONE 25 MG TAB PO SCH (08:36)
[2022-12-02] MEDS: ADVANCED PROBIOTIC 1250 MG CAPSULE PO SCH (08:36)
[2022-12-02] MEDS: ASPIRIN 81 MG ECTAB PO SCH (08:37)
[2022-12-02] MEDS: MENTHOL-ZINC OXIDE 360 APPLN/120 GM TUBE EXT SCH ×3 (08:38→20:48)
[2022-12-02] MEDS: BUTT PASTE (ZINC OXIDE 16%) 171 APPLN/57 GM JAR EXT SCH ×3 (10:08→20:48)
[2022-12-02] MEDS: HYDROmorphone INJ 0.5 MG/0.5 ML SYR IV PRN ×2 (10:09→20:44)
--- NOTE | 2022-12-02 11:01 | Surgery Progress Note ---
Date of Service December 02, 2022 Assessment & Plan (1) [place]uy-rectal abscess: Plan: POD # 1/#7 s/p I&D of perirectal abscess -avss - leukocytosis resolved - packing changed at bedside, healthy granulation tissue at wound base and no purulent/feculent drainage on packing change today Plan: Can transition to oral antibiotics on discharge will need home health wound care given extent of wound extending about 10 cm cephalad to ensure proper packing is done Also will need wound care follow-up Continue current medical management [facility] surgery covering weekend. Discussed with Dr. Sharp who agrees with above. Admission and Anticipated Discharge Date Admission Date: November 25, 2022 Subjective feeling okay no fevers or chills pain is controlled, not as severe states nurse removed outer dressing last evening twice and there was little brownish drainage on first and then just some blood on second dressing. Physical Exam Constitutional: WD/WN, vitals as above cooperative and comfortable; no acute distress and not ill appearing Neck: normal visual inspection and trachea midline Gastrointestinal (Abdomen): Left perirectal wound with packing present, bloody serous drainage on the ABD dressing. Surrounding induration and erythema significantly improved. The wound tracks about 10 cm cephalad and 4-5 cm anteriorly. packing removed and replaced with help of She from wound care. healthy granulation tissue at wound base. No significant purulent drainage or feculent drainage noted in wound after kerlix packing removed. Skin: no rashes, warm and dry Psychiatric: A+Ox3, euthymic affect Results & Data Vital Signs (Past 12 Hours) Vital Signs Temp Pulse Resp BP BP Pulse Ox O2 Del Method 12/02/22 10:53 37.0 C 72 18 128/77 94 Room Air 12/02/22 07:53 37.2 C 75 20 126/77 94 Room Air 12/02/22 04:00 36.7 C 74 18 117/73 96 Room Air Laboratory Results 12/02/22 12/02/22 12/02/22 Range/Units 07:51 06:32 06:32 WBC 8.25 (4.8-10.8) K/ul RBC 3.78 L (4.70-6.10) M/uL Hgb 10.0 L (14.0-18.0) g/dl Hct 30.1 L (42.0-52.0) % MCV 79.6 L (80.0-100.0) fL MCH 26.5 (25.0-34.0) pg MCHC 33.2 (32.0-36.0) g/dL RDW Std Deviation 45.6 (36.4-46.3) fL RDW Coeff of Chan 16.1 H (11.5-14.5) % Plt Count 351 (130-400) K/uL MPV 9.2 L (9.4-12.4) fL Immature Gran % (Auto) 0.4 % Neut % (Auto) 68.5 % Lymph % (Auto) 16.6 % Snyder % (Auto) 9.7 % Eos % (Auto) 4.2 % Baso % (Auto) 0.6 % Neut # (Auto) 5.65 (1.40-6.50) K/uL Lymph # (Auto) 1.37 (1.2-3.4) K/uL Snyder # (Auto) 0.80 H (0.11-0.59) K/uL Eos # (Auto) 0.35 (0-0.50) K/uL Baso # (Auto) 0.05 (0-0.2) K/uL Immature Gran # (Auto) 0.03 (0.01-0.20) K/uL Sodium 133 L (136-145) mmol/L Potassium 3.5 (3.5-5.1) mmol/L Chloride 97 L (98-107) mmol/L Carbon Dioxide 31 (21-32) mmol/L Anion Gap 5 (3-11) BUN 10 (6-23) mg/dl Creatinine 0.66 (0.6-1.4) mg/dl Est Cr Clr Drug Dosing 108.0 ml/min Est GFR ( Amer) 117.6 ml/min Est GFR (Non-Af Amer) 101.5 ml/min BUN/Creatinine Ratio 15.2 (10-20) Glucose 238 H (70-99(Fasting)) mg/dl POC Glucose 212 H (70-99) mg/dl Calcium 8.1 L (8.6-10.3) mg/dl 12/02/22 12/02/22 12/02/22 Range/Units 02:15 01:51 01:50 WBC (4.8-10.8) K/ul RBC (4.70-6.10) M/uL Hgb (14.0-18.0) g/dl Hct (42.0-52.0) % MCV (80.0-100.0) fL MCH (25.0-34.0) pg MCHC (32.0-36.0) g/dL RDW Std Deviation (36.4-46.3) fL RDW Coeff of Chan (11.5-14.5) % Plt Count (130-400) K/uL MPV (9.4-12.4) fL Immature Gran % (Auto) % Neut % (Auto) % Lymph % (Auto) % Snyder % (Auto) % Eos % (Auto) % Baso % (Auto) % Neut # (Auto) (1.40-6.50) K/uL Lymph # (Auto) (1.2-3.4) K/uL Snyder # (Auto) (0.11-0.59) K/uL Eos # (Auto) (0-0.50) K/uL Baso # (Auto) (0-0.2) K/uL Immature Gran # (Auto) (0.01-0.20) K/uL Sodium (136-145) mmol/L Potassium (3.5-5.1) mmol/L Chloride (98-107) mmol/L Carbon Dioxide (21-32) mmol/L Anion Gap (3-11) BUN (6-23) mg/dl Creatinine (0.6-1.4) mg/dl Est Cr Clr Drug Dosing ml/min Est GFR ( Amer) ml/min Est GFR (Non-Af Amer) ml/min BUN/Creatinine Ratio (10-20) Glucose (70-99(Fasting)) mg/dl POC Glucose 102 H 62 L* 56 L* (70-99) mg/dl Calcium (8.6-10.3) mg/dl 12/02/22 12/01/22 12/01/22 Range/Units 01:28 20:21 17:03 WBC (4.8-10.8) K/ul RBC (4.70-6.10) M/uL Hgb (14.0-18.0) g/dl Hct (42.0-52.0) % MCV (80.0-100.0) fL MCH (25.0-34.0) pg MCHC (32.0-36.0) g/dL RDW Std Deviation (36.4-46.3) fL RDW Coeff of Chan (11.5-14.5) % Plt Count (130-400) K/uL MPV (9.4-12.4) fL Immature Gran % (Auto) % Neut % (Auto) % Lymph % (Auto) % Snyder % (Auto) % Eos % (Auto) % Baso % (Auto) % Neut # (Auto) (1.40-6.50) K/uL Lymph # (Auto) (1.2-3.4) K/uL Snyder # (Auto) (0.11-0.59) K/uL Eos # (Auto) (0-0.50) K/uL Baso # (Auto) (0-0.2) K/uL Immature Gran # (Auto) (0.01-0.20) K/uL Sodium (136-145) mmol/L Potassium (3.5-5.1) mmol/L Chloride (98-107) mmol/L Carbon Dioxide (21-32) mmol/L Anion Gap (3-11) BUN (6-23) mg/dl Creatinine (0.6-1.4) mg/dl Est Cr Clr Drug Dosing ml/min Est GFR ( Amer) ml/min Est GFR (Non-Af Amer) ml/min BUN/Creatinine Ratio (10-20) Glucose (70-99(Fasting)) mg/dl POC Glucose 65 L* 121 H 136 H (70-99) mg/dl Calcium (8.6-10.3) mg/dl 12/01/22 12/01/22 12/01/22 Range/Units 15:10 14:03 11:43 WBC (4.8-10.8) K/ul RBC (4.70-6.10) M/uL Hgb (14.0-18.0) g/dl Hct (42.0-52.0) % MCV (80.0-100.0) fL MCH (25.0-34.0) pg MCHC (32.0-36.0) g/dL RDW Std Deviation (36.4-46.3) fL RDW Coeff of Chan (11.5-14.5) % Plt Count (130-400) K/uL MPV (9.4-12.4) fL Immature Gran % (Auto) % Neut % (Auto) % Lymph % (Auto) % Snyder % (Auto) % Eos % (Auto) % Baso % (Auto) % Neut # (Auto) (1.40-6.50) K/uL Lymph # (Auto) (1.2-3.4) K/uL Snyder # (Auto) (0.11-0.59) K/uL Eos # (Auto) (0-0.50) K/uL Baso # (Auto) (0-0.2) K/uL Immature Gran # (Auto) (0.01-0.20) K/uL Sodium (136-145) mmol/L Potassium (3.5-5.1) mmol/L Chloride (98-107) mmol/L Carbon Dioxide (21-32) mmol/L Anion Gap (3-11) BUN (6-23) mg/dl Creatinine (0.6-1.4) mg/dl Est Cr Clr Drug Dosing ml/min Est GFR ( Amer) ml/min Est GFR (Non-Af Amer) ml/min BUN/Creatinine Ratio (10-20) Glucose (70-99(Fasting)) mg/dl POC Glucose 205 H 188 H 150 H (70-99) mg/dl Calcium (8.6-10.3) mg/dl
--- NOTE | 2022-12-02 16:04 | Hospitalist Progress Note ---
Date of Service December 02, 2022 Assessment & Plan (1) Perirectal abscess: Plan: Status post first incision and drainage, postoperative day #7. He underwent the second incision and drainage procedure on December 01, postoperative day #1. E. coli and Bacteroides isolated. He he is currently on intravenous Zosyn and Flagyl. Hopefully he will eventually be discharged on oral antibiotics. Appreciate surgical consultation and recommendations. Colonoscopy will be done as an outpatient at a later date. Appreciate gastroenterology consultation and recommendations (2) Rectal bleeding: Plan: Most likely secondary to the perirectal abscess. Now resolved. Hemoglobin stable (3) Fever: Plan: Present on admission. Due to perirectal abscess. Now resolved (4) Type I diabetes mellitus, uncontrolled: Plan: ADA diet. Now on insulin therapy per pump. Glucose was markedly elevated on November 30, but is now much better after initiation of his insulin pump. (5) Gastric wall thickening: Plan: Mild nonspecific thickening of gastric antrum per CT abd. GI consultation appreciated. EGD will be done as an outpatient (6) Stage III pressure ulcer: Plan: Sacral decubitus area. Routine wound care. (7) COPD (chronic obstructive pulmonary disease): Plan: Stable. Continue current medical management . Not on inhalers. (8) CAD (coronary artery disease): Plan: s/p CABGx1. Stable. Continue home Plavix and baby ASA. (9) Aortic stenosis: Plan: s/p aortic valve replacement in 2016 ([facility] [place]). (10) Hypothyroidism: Plan: Continue home levothyroxine 175mcg. (11) Hypertension: Plan: Continue home chlorthalidone. (12) Dyslipidemia: Plan: Continue home atorvastatin and ezetimibe. (13) Below-knee amputation of right lower extremity: Plan: Small scab wound noted. Routine wound care. 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 Wound care management. Plan Continue intravenous antibiotics while hospitalized. Hopeful transition to oral antibiotics at discharge. EGD and colonoscopy will be done as an outpatient at a later date per gastroenterology Admission and Anticipated Discharge Date Admission Date: November 25, 2022 Subjective Alert and oriented. No complaints. Surgery entry noted. Postoperative day #7 after first incision and drainage and postoperative day #1 after second incision and drainage of perirectal abscess. E. coli and Bacteroides isolated. He is now on intravenous Zosyn and Flagyl. Will eventually discharge home on oral Augmentin Review of Systems Review of Systems: Constitutional-no fever or chills ENT-no blurred vision, no double vision, no epistaxis, no sore throat Respiratory-no cough, no wheezing, no shortness of breath Cardiac-no palpitations, no chest pain, no syncope GI-no nausea, vomiting, diarrhea, melena, hematochezia -no urinary retention, no urinary incontinence, no dysuria, no hematuria Musculoskeletal-no joint pain, no muscle tenderness Skin-no bruising, no rashes, no pruritus Neuro-no isolated weakness, no paresthesia, no weakness Psych-no depression, no anxiety Physical Exam Physical Exam: General-alert and oriented x3, no fevers, no chills HEENT-head atraumatic and normocephalic, pupils equal and reactive to light, extraocular muscles intact Neck-no lymphadenopathy or thyromegaly, trachea midline Chest-clear to auscultation percussion. No rales wheezing or rhonchi Cardiac-regular rate and rhythm, normal S1 and S2 Abdomen-normal bowel sounds, nontender, no hepatosplenomegaly Extremities-left leg AKA status. Right leg BKA status. Neuro-cranial nerves II through XII intact, motor and sensory function within normal limits, strength symmetrical, no focal deficits Psych-normal affect, normal mood Results & Data Results & Data Vital Signs (Past 12 Hours) Vital Signs Temp Pulse Pulse Resp BP Pulse Ox O2 Del Method 12/02/22 15:52 37.0 C 69 16 107/62 95 Room Air 12/02/22 08:00 70 12/02/22 10:53 37.0 C 72 18 128/77 94 Room Air 12/02/22 07:53 37.2 C 75 20 126/77 94 Room Air Laboratory Results 12/02/22 06:32 12/02/22 06:32 PG Care Time/CCT Total # of Minutes Spent Total Time Spent with Patient: Total time spent is greater than 50% in coordination of care (as documented) at patient's floor/unit and/or counseling patient: Coding Level of Care Code 42128 SUB INP/OBS CARE 3/50MIN Diagnoses Perirectal abscess K61.1 Rectal bleeding K62.5 Fever R50.9 Type I diabetes mellitus, uncontrolled Gastric wall thickening K31.89 Stage III pressure ulcer L89.93 COPD (chronic obstructive pulmonary disease) J44.9 CAD (coronary artery disease) I25.10 Coronary Disease-Associated Artery/Lesion type: [place] artery [place] vs. transplanted heart: [place] heart Associated angina: without angina Aortic stenosis I35.0 Hypothyroidism E03.9 Hypothyroidism type: unspecified Hypertension I10 Hypertension type: unspecified Dyslipidemia E78.5 Below-knee amputation of right lower extremity S88.111A Above knee amputation of left lower extremity S78.112A (8) CAD (coronary artery disease) Coronary Disease-Associated Artery/Lesion type: [place] artery [place] vs. tra nsplanted heart: [place] heart Associated angina: without angina Qualified Code(s): I25.10 - Atherosclerotic heart disease of [place] coronary artery without angina pectoris (10) Hypothyroidism Hypothyroidism type: unspecified Qualified Code(s): E03.9 - Hypothyroidism, unspecified (11) Hypertension Hypertension type: unspecified Qualified Code(s): I10 - Essential (primary) hypertension
[2022-12-02] MEDS: ACETAMINOPHEN 325 MG TAB PO PRN (20:43)
[2022-12-02] MEDS: ATORVASTATIN 40 MG TAB PO SCH (20:45)
[2022-12-03] MEDS: PIPERACILLIN/TAZOBACTAM 3.375 GM in DEXTROSE 5% 100 ML IV SCH ×3 (00:06→15:10)
[2022-12-03] MEDS: oxyCODONE/ACETAMINOPHEN 5mg/325mg TAB PO PRN ×2 (02:11→08:22)
[2022-12-03] MEDS: HYDROmorphone INJ 0.5 MG/0.5 ML SYR IV PRN ×2 (04:59→17:38)
--- NOTE | 2022-12-03 05:28 | Surgery Progress Note ---
Date of Service December 03, 2022 Assessment & Plan (1) Perirectal abscess: Plan: Status post incision and drainage of perirectal abscess on 12/01/2022 (postop day #2) We will discuss dressing change with attending physician Continue antibiotics in the form of Zosyn and Flagyl Mobilize as able Continue analgesics as needed Check a.m. labs when available Admission and Anticipated Discharge Date Admission Date: November 25, 2022 Supervising Physician Co-Signing Physician Notes pnt s&e, agree with above. POD#2/8 I&D perirectal. dressing changed, some purulent fluid. no cellulitis. cont abx, dressing changes. Subjective Patient is resting comfortably in bed. He denies any fevers, shakes, or chills. He notes minimal pain at surgical site. Physical Exam Gastrointestinal (Abdomen): Abdomen is soft, nondistended, and nonpainful to palpation. Dressing in place over perirectal abscess I&D site. (Will inspect on attending rounds) Results & Data Vital Signs (Past 12 Hours) Vital Signs Temp Pulse Resp BP Pulse Ox O2 Del Method 12/03/22 04:11 36.9 C 73 20 114/74 93 Room Air 12/02/22 23:42 36.7 C 68 20 121/74 94 Room Air 12/02/22 19:47 36.6 C 70 20 127/78 94 Room Air PG Care Time/CCT Total # of Minutes Spent Total Time Spent with Patient: Total time spent is greater than 50% in coordination of care (as documented) at patient's floor/unit and/or counseling patient: Coding Level of Care Code 08080 Post Operative Follow-Up Diagnoses Perirectal abscess K61.1
[2022-12-03] MEDS: metroNIDAZOLE 500 MG/100 ML BAG IV SCH ×3 (07:09→22:45)
[2022-12-03] MEDS: LEVOTHYROXINE SODIUM 175 MCG TABLET PO SCH (07:10)
[2022-12-03 07:19] LABS: Basophils # (auto) 0.08 K/uL (0-0.2); Basophils % (auto) 0.6 %; Eosinophils # (auto) 0.34 K/uL (0-0.50); Eosinophils % (auto) 2.5 %; Hematocrit (blood only) 34.4 % (42.0-52.0); Hemoglobin 11.4 g/dl (14.0-18.0); Immature Granulocytes # (auto) 0.07 K/uL (0.01-0.20); Immature Granulocytes % (auto) 0.5 %; Lymphocytes # (auto) 1.58 K/uL (1.2-3.4); Lymphocytes % (auto) 11.5 %; Mean Corpuscular Hemoglobin 26.3 pg (25.0-34.0); Mean Corpuscular Hgb Conc 33.1 g/dL (32.0-36.0); Mean Corpuscular Volume 79.3 fL (80.0-100.0); Monocytes # (auto) 1.22 K/uL (0.11-0.59); Monocytes % (auto) 8.9 %; Neutrophils # (auto) 10.45 K/uL (1.40-6.50); Platelet Count 400 K/uL (130-400); RDW Coefficient of Variation 16.3 % (11.5-14.5); RDW Standard Deviation 46.3 fL (36.4-46.3); Red Blood Count 4.34 M/uL (4.70-6.10); White Blood Count 13.74 K/ul (4.8-10.8)
[2022-12-03 07:44] LABS: BUN Creatinine Ratio 14.3 (10-20); Calcium 8.6 mg/dl (8.6-10.3); Creatinine Clr Calc Pharmacy 92.5 ml/min; Est GFR (African American) 110.4 ml/min; Est GFR (Non-African American) 95.2 ml/min
[2022-12-03] MEDS: ADVANCED PROBIOTIC 1250 MG CAPSULE PO SCH (08:18)
[2022-12-03] MEDS: ASPIRIN 81 MG ECTAB PO SCH (08:18)
[2022-12-03] MEDS: FOLIC ACID 1 MG TAB PO SCH (08:18)
[2022-12-03] MEDS: METOPROLOL TARTRATE 25 MG TAB PO SCH ×2 (08:19→20:29)
[2022-12-03] MEDS: CLOPIDOGREL BISULFATE 75 MG TAB PO SCH (08:19)
[2022-12-03] MEDS: PANTOprazole 40 MG TAB PO PRN (08:19)
[2022-12-03] MEDS: CHLORTHALIDONE 25 MG TAB PO SCH (08:19)
[2022-12-03] MEDS: CALCITRIOL 0.25 MCG CAPSULE PO SCH (08:19)
[2022-12-03] MEDS: MAGNESIUM OXIDE 400 MG TAB PO SCH (08:19)
[2022-12-03] MEDS: EZETIMIBE 10 MG TABLET PO SCH (08:19)
[2022-12-03] MEDS: POTASSIUM CHLORIDE CRTAB 20 MEQ TABCR PO SCH ×2 (08:20→20:29)
[2022-12-03] MEDS: MENTHOL-ZINC OXIDE 360 APPLN/120 GM TUBE EXT SCH ×3 (08:20→20:28)
[2022-12-03] MEDS: BUTT PASTE (ZINC OXIDE 16%) 171 APPLN/57 GM JAR EXT SCH ×3 (08:20→20:30)
[2022-12-03] MEDS: INSULIN, Rapid-Acting PUMP SCH ×4 (08:21→20:28)
[2022-12-03] MEDS: FERROUS SULFATE 325 MG TAB PO SCH ×2 (08:21→20:27)
--- NOTE | 2022-12-03 14:31 | Hospitalist Progress Note ---
Date of Service December 03, 2022 Assessment & Plan (1) Perirectal abscess: Plan: Status post first incision and drainage, postoperative day #8. He underwent the second incision and drainage procedure on December 01, postoperative day #2. E. coli and Bacteroides isolated. He he is currently on intravenous Zosyn and Flagyl. Hopefully he will eventually be discharged on oral antibiotics. Appreciate surgical consultation and recommendations. Colonoscopy will be done as an outpatient at a later date. Appreciate gastroenterology consultation and recommendations (2) Rectal bleeding: Plan: Most likely secondary to the perirectal abscess. Now resolved. Hemoglobin stable (3) Fever: Plan: Present on admission. Due to perirectal abscess. Now resolved (4) Type I diabetes mellitus, uncontrolled: Plan: ADA diet. Now on insulin therapy per pump. Glucose was markedly elevated on November 30, but is now much better after initiation of his insulin pump. (5) Gastric wall thickening: Plan: Mild nonspecific thickening of gastric antrum per CT abd. GI consultation appreciated. EGD will be done as an outpatient (6) Stage III pressure ulcer: Plan: Sacral decubitus area. Routine wound care. (7) COPD (chronic obstructive pulmonary disease): Plan: Stable. Continue current medical management . Not on inhalers. (8) CAD (coronary artery disease): Plan: s/p CABGx1. Stable. Continue home Plavix and baby ASA. (9) Aortic stenosis: Plan: s/p aortic valve replacement in 2016 ([facility] [place] (10) Hypothyroidism: Plan: Continue home levothyroxine 175mcg. (11) Hypertension: Plan: Continue home chlorthalidone. (12) Dyslipidemia: Plan: Continue home atorvastatin and ezetimibe. (13) Below-knee amputation of right lower extremity: Plan: Small scab wound noted. Routine wound care. 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 Wound care management. Plan Continue intravenous antibiotics while hospitalized. Hopeful transition to oral antibiotics at discharge. EGD and colonoscopy will be done as an outpatient at a later date per gastroenterology. Home soon Admission and Anticipated Discharge Date Admission Date: November 25, 2022 Subjective Alert and oriented. No new problems. Surgery entry noted. He remains on intravenous Zosyn and Flagyl. Review of Systems Review of Systems: Constitutional-no fever or chills ENT-no blurred vision, no double vision, no epistaxis, no sore throat Respiratory-no cough, no wheezing, no shortness of breath Cardiac-no palpitations, no chest pain, no syncope GI-no nausea, vomiting, diarrhea, melena, hematochezia -no urinary retention, no urinary incontinence, no dysuria, no hematuria Musculoskeletal-no joint pain, no muscle tenderness Skin-no bruising, no rashes, no pruritus Neuro-no isolated weakness, no paresthesia, no weakness Psych-no depression, no anxiety Physical Exam Physical Exam: General-alert and oriented x3, no fevers, no chills HEENT-head atraumatic and normocephalic, pupils equal and reactive to light, extraocular muscles intact Neck-no lymphadenopathy or thyromegaly, trachea midline Chest-clear to auscultation percussion. No rales wheezing or rhonchi Cardiac-regular rate and rhythm, normal S1 and S2 Abdomen-normal bowel sounds, nontender, no hepatosplenomegaly Extremities-left leg AKA status. Right leg BKA status. Neuro-cranial nerves II through XII intact, motor and sensory function within normal limits, strength symmetrical, no focal deficits Psych-normal affect, normal mood Results & Data Results & Data Vital Signs (Past 12 Hours) Vital Signs Temp Pulse Pulse Resp BP Pulse Ox O2 Del Method 12/03/22 11:04 37.2 C 72 18 109/62 96 Room Air 12/03/22 07:06 37.2 C 72 18 99/53 L 94 Room Air 12/03/22 07:06 75 12/03/22 04:11 36.9 C 73 20 114/74 93 Room Air Laboratory Results 12/03/22 06:56 12/03/22 06:56 PG Care Time/CCT Total # of Minutes Spent Total Time Spent with Patient: Total time spent is greater than 50% in coordination of care (as documented) at patient's floor/unit and/or counseling patient: Coding Level of Care Code 15796 SUB INP/OBS CARE 235MIN Diagnoses Perirectal abscess K61.1 Rectal bleeding K62.5 Fever R50.9 Type I diabetes mellitus, uncontrolled Gastric wall thickening K31.89 Stage III pressure ulcer L89.93 COPD (chronic obstructive pulmonary disease) J44.9 CAD (coronary artery disease) I25.10 Coronary Disease-Associated Artery/Lesion type: [place] artery [place] vs. transplanted heart: [place] heart Associated angina: without angina Aortic stenosis I35.0 Hypothyroidism E03.9 Hypothyroidism type: unspecified Hypertension I10 Hypertension type: unspecified Dyslipidemia E78.5 Below-knee amputation of right lower extremity S88.111A Above knee amputation of left lower extremity S78.112A (8) CAD (coronary artery disease) Coronary Disease-Associated Artery/Lesion type: [place] artery [place] vs. transplanted heart: [place] heart Associated angina: without angina Qualified Code(s): I25.10 - Atherosclerotic heart disease of [place] coronary artery without angina pectoris (10) Hypothyroidism Hypothyroidism type: unspecified Qualified Code(s): E03.9 - Hypothyroidism, unspecified (11) Hypertension Hypertension type: unspecified Qualified Code(s): I10 - Essential (primary) hypertension
[2022-12-03] MEDS: ONDANSETRON INJ 2 MG/ML 2 ML VIAL IV PRN (17:36)
[2022-12-03] MEDS: ATORVASTATIN 40 MG TAB PO SCH (20:27)
[2022-12-04] MEDS: PIPERACILLIN/TAZOBACTAM 3.375 GM in DEXTROSE 5% 100 ML IV SCH ×3 (00:19→17:03)
[2022-12-04] MEDS: HYDROmorphone INJ 0.5 MG/0.5 ML SYR IV PRN ×4 (01:46→21:52)
[2022-12-04] MEDS: LEVOTHYROXINE SODIUM 175 MCG TABLET PO SCH (06:00)
[2022-12-04] MEDS: metroNIDAZOLE 500 MG/100 ML BAG IV SCH ×3 (06:19→21:06)
[2022-12-04] MEDS: MAGNESIUM OXIDE 400 MG TAB PO SCH (07:27)
[2022-12-04] MEDS: FOLIC ACID 1 MG TAB PO SCH (07:27)
[2022-12-04] MEDS: CALCITRIOL 0.25 MCG CAPSULE PO SCH (07:27)
[2022-12-04] MEDS: EZETIMIBE 10 MG TABLET PO SCH (07:27)
[2022-12-04] MEDS: CLOPIDOGREL BISULFATE 75 MG TAB PO SCH (07:27)
[2022-12-04] MEDS: ASPIRIN 81 MG ECTAB PO SCH (07:27)
[2022-12-04] MEDS: CHLORTHALIDONE 25 MG TAB PO SCH (07:27)
[2022-12-04] MEDS: PANTOprazole 40 MG TAB PO SCH (07:28)
[2022-12-04] MEDS: BUTT PASTE (ZINC OXIDE 16%) 171 APPLN/57 GM JAR EXT SCH ×3 (07:28→20:11)
[2022-12-04] MEDS: ADVANCED PROBIOTIC 1250 MG CAPSULE PO SCH (07:28)
[2022-12-04] MEDS: MENTHOL-ZINC OXIDE 360 APPLN/120 GM TUBE EXT SCH ×3 (07:28→20:11)
[2022-12-04] MEDS: METOPROLOL TARTRATE 25 MG TAB PO SCH ×2 (07:29→20:09)
[2022-12-04] MEDS: POTASSIUM CHLORIDE CRTAB 20 MEQ TABCR PO SCH ×2 (07:29→20:09)
[2022-12-04] MEDS: FERROUS SULFATE 325 MG TAB PO SCH ×2 (07:29→20:09)
[2022-12-04 07:36] LABS: Basophils # (auto) 0.08 K/uL (0-0.2); Basophils % (auto) 0.6 %; Eosinophils # (auto) 0.42 K/uL (0-0.50); Eosinophils % (auto) 3.2 %; Hematocrit (blood only) 33.6 % (42.0-52.0); Hemoglobin 10.8 g/dl (14.0-18.0); Immature Granulocytes # (auto) 0.06 K/uL (0.01-0.20); Immature Granulocytes % (auto) 0.5 %; Lymphocytes # (auto) 2.05 K/uL (1.2-3.4); Lymphocytes % (auto) 15.7 %; Mean Corpuscular Hgb Conc 32.1 g/dL (32.0-36.0); Mean Corpuscular Volume 80.8 fL (80.0-100.0); Mean Platelet Volume 9.1 fL (9.4-12.4); Monocytes # (auto) 1.35 K/uL (0.11-0.59); Monocytes % (auto) 10.3 %; Neutrophils # (auto) 9.12 K/uL (1.40-6.50); Neutrophils % (auto) 69.7 %; Platelet Count 416 K/uL (130-400); RDW Coefficient of Variation 16.8 % (11.5-14.5); RDW Standard Deviation 47.5 fL (36.4-46.3); Red Blood Count 4.16 M/uL (4.70-6.10); White Blood Count 13.08 K/ul (4.8-10.8)
[2022-12-04 07:52] LABS: BUN Creatinine Ratio 18.2 (10-20); Calcium 8.4 mg/dl (8.6-10.3); Est GFR (African American) 117.6 ml/min; Est GFR (Non-African American) 101.5 ml/min; Potassium 3.5 mmol/L (3.5-5.1)
[2022-12-04] MEDS: INSULIN, Rapid-Acting PUMP SCH ×4 (08:27→21:27)
--- NOTE | 2022-12-04 08:35 | Surgery Progress Note ---
Date of Service December 04, 2022 Assessment & Plan (1) Perirectal abscess: Plan: Status post incision and drainage of perirectal abscess on 12/01/2022 (postop day #3) Continue dressing changes/wound packing. Continue antibiotics in the form of Zosyn and Flagyl. Wound culture has grown Bacteroides as well as E. coli and selected antibiotic should cover these organisms. Mobilize as able Continue analgesics as needed Leukocytosis noted on yesterday's labs is stable. (White blood cell count 13 K) Admission and Anticipated Discharge Date Admission Date: November 25, 2022 Subjective Patient is resting comfortably in bed. He denies any fevers, shakes, or chills. He does note some pain at his surgical site with manipulation. Physical Exam Physical Exam: This provider was notified by nursing staff the patient's dressing had become s aturated. Patient's wound was examined at the bedside and packing and dressing were removed. Patient has some purulent/feculent drainage noted from the wound. This was cleaned. There is no crepitus noted in the soft tissue. There is minimal surrounding erythema of the surgical incision. The patient's wound was repacked with one 4 x 4 gauze and covered with an ABD. Results & Data Vital Signs (Past 12 Hours) Vital Signs Temp Pulse Pulse Resp BP BP Pulse Ox 12/04/22 07:54 37.5 C 76 20 107/57 L 94 12/04/22 06:57 73 12/04/22 03:35 37.0 C 65 20 115/75 92 12/03/22 22:44 70 12/03/22 23:00 36.8 C 72 20 111/69 93 O2 Del Method 12/04/22 07:54 Room Air 12/04/22 06:57 12/04/22 03:35 Room Air 12/03/22 22:44 12/03/22 23:00 Room Air PG Care Time/CCT Total # of Minutes Spent Total Time Spent with Patient: Total time spent is greater than 50% in coordination of care (as documented) at patient's floor/unit and/or counseling patient: Coding Level of Care Code 75429 Post Operative Follow-Up Diagnoses Perirectal abscess K61.1
--- NOTE | 2022-12-04 14:20 | Hospitalist Progress Note ---
Date of Service December 04, 2022 Assessment & Plan (1) Perirectal abscess: Plan: Status post first incision and drainage, postoperative day #89. He underwent the second incision and drainage procedure on December 01, postoperative day #3. E. coli and Bacteroides isolated. He he is currently on intravenous Zosyn and Flagyl. Hopefully he will eventually be discharged on oral antibiotics. Appreciate surgical consultation and recommendations. Colonoscopy will be done as an outpatient at a later date. Appreciate gastroenterology consultation and recommendations (2) Rectal bleeding: Plan: Most likely secondary to the perirectal abscess. Now resolved. Hemoglobin stable (3) Fever: Plan: Present on admission. Due to perirectal abscess. Now resolved (4) Type I diabetes mellitus, uncontrolled: Plan: ADA diet. Now on insulin therapy per pump. Glucose was markedly elevated on November 30, but is now much better after initiation of his insulin pump. (5) Gastric wall thickening: Plan: Mild nonspecific thickening of gastric antrum per CT abd. GI consultation appreciated. EGD will be done as an outpatient (6) Stage III pressure ulcer: Plan: Sacral decubitus area. Routine wound care. (7) COPD (chronic obstructive pulmonary disease): Plan: Stable. Continue current medical management . Not on inhalers. (8) CAD (coronary artery disease): Plan: s/p CABGx1. Stable. Continue home Plavix and baby ASA. (9) Aortic stenosis: Plan[place] [place] (10) Hypothyroidism: Plan: Continue home levothyroxine 175mcg. (11) Hypertension: Plan: Continue home chlorthalidone. (12) Dyslipidemia: Plan: Continue home atorvastatin and ezetimibe. (13) Below-knee amputation of right lower extremity: Plan: Small scab wound noted. Routine wound care. 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 Wound care management. Plan Continue intravenous antibiotics while hospitalized. Hopeful transition to oral antibiotics at discharge. EGD and colonoscopy will be done as an outpatient at a later date per gastroenterology. Home soon Admission and Anticipated Discharge Date Admission Date: November 25, 2022 Subjective Alert and oriented. No complaints. No new problems. Surgery entry noted Review of Systems Review of Systems: Constitutional-no fever or chills ENT-no blurred vision, no double vision, no epistaxis, no sore throat Respiratory-no cough, no wheezing, no shortness of breath Cardiac-no palpitations, no chest pain, no syncope GI-no nausea, vomiting, diarrhea, melena, hematochezia -no urinary retention, no urinary incontinence, no dysuria, no hematuria Musculoskeletal-no joint pain, no muscle tenderness Skin-no bruising, no rashes, no pruritus Neuro-no isolated weakness, no paresthesia, no weakness Psych-no depression, no anxiety Physical Exam Physical Exam: General-alert and oriented x3, no fevers, no chills HEENT-head atraumatic and normocephalic, pupils equal and reactive to light, extraocular muscles intact Neck-no lymphadenopathy or thyromegaly, trachea midline Chest-clear to auscultation percussion. No rales wheezing or rhonchi Cardiac-regular rate and rhythm, normal S1 and S2 Abdomen-normal bowel sounds, nontender, no hepatosplenomegaly Extremities-left leg AKA status. Right leg BKA status. Skinpacking noted in the perirectal abscess I&D location. Resolving cellulitis Neuro-cranial nerves II through XII intact, motor and sensory function within normal limits, strength symmetrical, no focal deficits Psych-normal affect, normal mood Results & Data Results & Data Vital Signs (Past 12 Hours) Vital Signs Temp Pulse Pulse Resp BP BP Pulse Ox 12/04/22 11:19 37.1 C 73 20 119/74 94 12/04/22 07:54 37.5 C 76 20 107/57 L 94 12/04/22 06:57 73 12/04/22 03:35 37.0 C 65 20 115/75 92 O2 Del Method 12/04/22 11:19 Room Air 12/04/22 07:54 Room Air 12/04/22 06:57 12/04/22 03:35 Room Air Laboratory Results 12/04/22 07:04 12/04/22 07:04 PG Care Time/CCT Total # of Minutes Spent Total Time Spent with Patient: Total time spent is greater than 50% in coordination of care (as documented) at patient's floor/unit and/or counseling patient: Coding Level of Care Code 94059 SUB INP/OBS CARE 2/35MIN Diagnoses Perirectal abscess K61.1 Rectal bleeding K62.5 Fever R50.9 Type I diabetes mellitus, uncontrolled Gastric wall thickening K31.89 Stage III pressure ulcer L89.93 COPD (chronic obstructive pulmonary disease) J44.9 CAD (coronary artery disease) I25.10 Coronary Disease-Associated Artery/Lesion type: [place] artery [place] vs. transplanted heart: [place] heart Associated angina: without angina Aortic stenosis I35.0 Hypothyroidism E03.9 Hypothyroidism type: unspecified Hypertension I10 Hypertension type: unspecified Dyslipidemia E78.5 Below-knee amputation of right lower extremity S88.111A Above knee amputation of left lower extremity S78.112A (8) CAD (coronary artery disease) Coronary Disease-Associated Artery/Lesion type: [place] artery [place] vs. transplanted heart: [place] heart Associated angina: without angina Qualified Code(s): I25.10 - Atherosclerotic heart disease of [place] coronary artery without angina pectoris (10) Hypothyroidism Hypothyroidism type: unspecified Qualified Code(s): E03.9 - Hypothyroidism, unspecified (11) Hypertension Hypertension type: unspecified Qualified Code(s): I10 - Essential (primary) hypertension
[2022-12-04] MEDS: ATORVASTATIN 40 MG TAB PO SCH (20:09)
[2022-12-05] MEDS: PIPERACILLIN/TAZOBACTAM 3.375 GM in DEXTROSE 5% 100 ML IV SCH ×3 (00:33→16:13)
[2022-12-05] MEDS: metroNIDAZOLE 500 MG/100 ML BAG IV SCH ×3 (06:01→23:20)
[2022-12-05] MEDS: LEVOTHYROXINE SODIUM 175 MCG TABLET PO SCH (06:01)
[2022-12-05] MEDS: METOPROLOL TARTRATE 25 MG TAB PO SCH ×2 (08:06→20:45)
[2022-12-05] MEDS: POTASSIUM CHLORIDE CRTAB 20 MEQ TABCR PO SCH ×2 (08:06→20:49)
[2022-12-05] MEDS: FOLIC ACID 1 MG TAB PO SCH (08:07)
[2022-12-05] MEDS: ASPIRIN 81 MG ECTAB PO SCH (08:07)
[2022-12-05] MEDS: EZETIMIBE 10 MG TABLET PO SCH (08:07)
[2022-12-05] MEDS: CHLORTHALIDONE 25 MG TAB PO SCH (08:08)
[2022-12-05] MEDS: ADVANCED PROBIOTIC 1250 MG CAPSULE PO SCH (08:08)
[2022-12-05] MEDS: CLOPIDOGREL BISULFATE 75 MG TAB PO SCH (08:08)
[2022-12-05] MEDS: PANTOprazole 40 MG TAB PO SCH (08:09)
[2022-12-05] MEDS: FERROUS SULFATE 325 MG TAB PO SCH ×2 (08:09→20:48)
[2022-12-05] MEDS: CALCITRIOL 0.25 MCG CAPSULE PO SCH (08:09)
[2022-12-05] MEDS: MAGNESIUM OXIDE 400 MG TAB PO SCH (08:09)
[2022-12-05] MEDS: BUTT PASTE (ZINC OXIDE 16%) 171 APPLN/57 GM JAR EXT SCH ×3 (08:11→20:50)
[2022-12-05] MEDS: INSULIN, Rapid-Acting PUMP SCH ×4 (08:14→20:46)
[2022-12-05] MEDS: MENTHOL-ZINC OXIDE 360 APPLN/120 GM TUBE EXT SCH ×3 (08:17→20:50)
[2022-12-05 08:40] LABS: Basophils # (auto) 0.06 K/uL (0-0.2); Basophils % (auto) 0.6 %; Eosinophils # (auto) 0.33 K/uL (0-0.50); Eosinophils % (auto) 3.1 %; Hematocrit (blood only) 35.1 % (42.0-52.0); Hemoglobin 11.8 g/dl (14.0-18.0); Immature Granulocytes # (auto) 0.06 K/uL (0.01-0.20); Immature Granulocytes % (auto) 0.6 %; Lymphocytes # (auto) 2.18 K/uL (1.2-3.4); Lymphocytes % (auto) 20.2 %; Mean Corpuscular Hemoglobin 26.5 pg (25.0-34.0); Mean Corpuscular Hgb Conc 33.6 g/dL (32.0-36.0); Mean Corpuscular Volume 78.9 fL (80.0-100.0); Mean Platelet Volume 9.1 fL (9.4-12.4); Monocytes # (auto) 1.25 K/uL (0.11-0.59); Monocytes % (auto) 11.6 %; Neutrophils # (auto) 6.92 K/uL (1.40-6.50); Neutrophils % (auto) 63.9 %; Platelet Count 416 K/uL (130-400); RDW Coefficient of Variation 16.7 % (11.5-14.5); RDW Standard Deviation 46.3 fL (36.4-46.3); Red Blood Count 4.45 M/uL (4.70-6.10)
[2022-12-05 09:20] LABS: BUN Creatinine Ratio 15.2 (10-20); Calcium 8.7 mg/dl (8.6-10.3); Est GFR (African American) 117.6 ml/min; Est GFR (Non-African American) 101.5 ml/min; Potassium 3.5 mmol/L (3.5-5.1)
[2022-12-05] MEDS: DOCUSATE SODIUM 100 MG CAP PO PRN (11:03)
[2022-12-05] MEDS: HYDROmorphone INJ 0.5 MG/0.5 ML SYR IV PRN (11:04)
--- NOTE | 2022-12-05 12:11 | Surgery Progress Note ---
Date of Service December 05, 2022 Assessment & Plan (1) [place]-rectal abscess: Plan: POD # 1/#7 s/p I&D of perirectal abscess -avss - leukocytosis resolved - packing changed at bedside, healthy granulation tissue at wound base and no purulent/feculent drainage on packing change today Plan: Can transition to oral antibiotics on discharge will need home health wound care given extent of wound extending about 10 cm cephalad to ensure proper packing is done Also will need wound care follow-up Continue current medical management [facility] surgery covering weekend. Discussed with Dr. Sharp who agrees with above. 12/05/2022 12:10 PM, DR. Hawley POD # 4/#10 s/p I&D of perirectal abscess -avss - leukocytosis resolved - packing changed at bedside, healthy granulation tissue at wound base and no purulent/feculent drainage on packing change today Plan: Can transition to oral antibiotics on discharge, pt's daughter will learn how to change packing, will need home health wound care given extent of wound extending about 10 cm cephalad to ensure proper packing is done Also will need wound care follow-up Continue current medical management [facility] covering weekend. top case assembler will work on discharge plan, will F/U, Admission and Anticipated Discharge Date Admission Date: November 25, 2022 Supervising Physician Co-Signing Physician Notes pnt s&e, agree with above. POD#2/8 I&D perirectal. dressing changed, some purulent fluid. no cellulitis. cont abx, dressing changes. Subjective Alert and oriented. No complaints. No new problems. Surgery entry noted 12/05/2022 12:08 PM, DR. Hawley. pt is doing better, no significant rectal pain, no fever, Review of Systems Constitutional: as per Subjective / HPI Eyes: as per Subjective / HPI Respiratory: COPD Cardiovascular: Additional Comments: CAD, aortic stenosis Gastrointestinal: colonoscopy last year, remove polyp, rectal abscess Genitourinary: + problem reported (kidney stone) Physical Exam Constitutional: WD/WN, vitals as above Eyes: PERRL, conjunctivae normal, anicteric sclerae Neck: trachea midline, no thyromegaly normal visual inspection and trachea midline Respiratory: normal respiratory effort, lungs clear to auscultation normal respiratory effort; no respiratory distress Cardiovascular: RRR, no murmur, no edema Gastrointestinal (Abdomen): rectal wound packing, no redness, Neurologic: patellar DTR's 2+ bilat, sensation intact Psychiatric: A+Ox3, euthymic affect Orientation: alert and oriented x 3 Results & Data Vital Signs (Past 12 Hours) Vital Signs Temp Pulse Pulse Resp BP BP Pulse Ox 12/05/22 11:01 37.5 C 74 20 121/72 94 12/05/22 07:56 37.0 C 75 20 110/72 94 12/05/22 06:41 69 12/05/22 03:45 36.9 C 76 20 130/73 92 O2 Del Method 12/05/22 11:01 Room Air 12/05/22 07:56 Room Air 12/05/22 06:41 12/05/22 03:45 Room Air Laboratory Results Abnormal lab results 12/04/22 12/04/22 12/05/22 Range/Units 16:39 20:32 07:46 RBC (4.70-6.10) M/uL Hgb (14.0-18.0) g/dl Hct (42.0-52.0) % MCV (80.0-100.0) fL RDW Coeff of Chan (11.5-14.5) % Plt Count (130-400) K/uL MPV (9.4-12.4) fL Neut # (Auto) (1.40-6.50) K/uL Stark # (Auto) (0.11-0.59) K/uL Sodium (136-145) mmol/L Glucose (70-99(Fasting)) mg/dl POC Glucose 160 H 156 H 180 H (70-99) mg/dl 12/05/22 12/05/22 12/05/22 Range/Units 07:53 07:53 11:19 RBC 4.45 L (4.70-6.10) M/uL Hgb 11.8 L (14.0-18.0) g/dl Hct 35.1 L (42.0-52.0) % MCV 78.9 L (80.0-100.0) fL RDW Coeff of Chan 16.7 H (11.5-14.5) % Plt Count 416 H (130-400) K/uL MPV 9.1 L (9.4-12.4) fL Neut # (Auto) 6.92 H (1.40-6.50) K/uL Stark # (Auto) 1.25 H (0.11-0.59) K/uL Sodium 134 L (136-145) mmol/L Glucose 171 H (70-99(Fasting)) mg/dl POC Glucose 147 H (70-99) mg/dl
--- NOTE | 2022-12-05 19:04 | Hospitalist Progress Note ---
Date of Service December 05, 2022 Assessment & Plan (1) Perirectal abscess: Plan: Status post new separate incision and drainage procedures. He underwent the second incision and drainage procedure on December 01. E. coli and Bacteroides isolated from the aspirate. Blood cultures negative. Leukocytosis is resolved He he is currently on intravenous Zosyn and Flagyl with plans to discharged home on Augmentin and Flagyl Appreciate surgical consultation and recommendations. Follow-up with surgery in 2 weeks Colonoscopy will be done as an outpatient at a later date. Appreciate gastroenterology consultation and recommendations We will give MiraLAX for constipation associated with oxycodone and iron tablet use if no bowel movement by later today (2) Rectal bleeding: Plan: Most likely secondary to the perirectal abscess. Now resolved. Hemoglobin stable (3) Fever: Plan: Present on admission. Due to perirectal abscess. Now resolved (4) Type I diabetes mellitus, uncontrolled: Plan: ADA diet. Now on insulin therapy per pump. Glucose was markedly elevated on November 30, but is now much better after initiation of his insulin pump. (5) Gastric wall thickening: Plan: Mild nonspecific thickening of gastric antrum per CT abd. GI consultation appreciated. EGD will be done as an outpatient (6) Stage III pressure ulcer: Plan: Sacral decubitus area. Routine wound care. (7) COPD (chronic obstructive pulmonary disease): Plan: Stable. Continue current medical management . Not on inhalers. (8) CAD (coronary artery disease): Plan: s/p CABGx1. Stable. Continue home Plavix and baby ASA, continue atorvastatin and metoprolol (9) Aortic stenosis: Plan: s/p aortic valve [place] [place] (10) Hypothyroidism: Plan: Continue home levothyroxine 175mcg. Most recent TSH slightly low at 0.176 Follow-up with PCP (11) Hypertension: Plan: Continue home chlorthalidone although consider holding this given hyponatremia and hypokalemia (12) Dyslipidemia: Plan: Continue home atorvastatin and ezetimibe. (13) Below-knee amputation of right lower extremity: Plan: Small scab wound noted. Routine wound care. 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 Wound care management. Plan -Home health not able to come until Monday and daughter needs to see how to do the packing changes Hold discharge for today and hopeful for tomorrow if daughter can come in for instruction Admission and Anticipated Discharge Date Admission Date: November 25, 2022 Subjective Patient has some pain in the perirectal region. He is concerned that he has not moved his bowels in 4 days. No chest pain shortness of breath. No nausea. I discussed his care with the surgeon and the case sealermarine service manager with normal sinus rhythm sinus bradycardia with rates in the 60s to 70s Physical Exam Constitutional: WD/WN, vitals as above Respiratory: normal respiratory effort, lungs clear to auscultation Cardiovascular: RRR, no murmur, no edema Gastrointestinal (Abdomen): normal bowel sounds, soft, nontender, no hepatosplenomegaly Musculoskeletal: Extremities: + extremities abnormal to inspection (Bilateral BKA) Psychiatric: A+Ox3, euthymic affect Results & Data Results & Data Vital Signs (Past 12 Hours) Vital Signs Temp Pulse Resp BP Pulse Ox O2 Del Method 12/05/22 15:17 36.9 C 72 20 109/75 93 Room Air 12/05/22 11:01 37.5 C 74 20 121/72 94 Room Air 12/05/22 07:56 37.0 C 75 20 110/72 94 Room Air Laboratory Results CBC, BMP reviewed PG Care Time/CCT Total # of Minutes Spent Total Time Spent with Patient: Total time spent is greater than 50% in coordination of care (as documented) at patient's floor/unit and/or counseling patient: Coding Level of Care Code 13219 SUB INP/OBS CARE 2/35MIN Diagnoses Perirectal abscess K61.1 Rectal bleeding K62.5 Fever R50.9 Type I diabetes mellitus, uncontrolled Gastric wall thickening K31.89 Stage III pressure ulcer L89.93 COPD (chronic obstructive pulmonary disease) J44.9 CAD (coronary artery disease) I25.10 Associated angina: without angina Coronary Disease-Associated Artery/Lesion type: [place] artery [place] vs. transplanted heart: [place] heart Aortic stenosis I35.0 Hypothyroidism E03.9 Hypothyroidism type: unspecified Hypertension I10 Hypertension type: unspecified Dyslipidemia E78.5 Below-knee amputation of right lower extremity S88.111A Above knee amputation of left lower extremity S78.112A (8) CAD (coronary artery disease) Associated angina: without angina Coronary Disease-Associated Artery/Lesion type: [place] artery [place] vs. transplanted heart: [place] heart Qualified Code(s): I25.10 - Atherosclerotic heart disease of [place] coronary artery without angina pectoris (10) Hypothyroidism Hypothyroidism type: unspecified Qualified Code(s): E03.9 - Hypothyroidism, unspecified (11) Hypertension Hypertension type: unspecified Qualified Code(s): I10 - Essential (primary) hypertension
[2022-12-05] MEDS: ATORVASTATIN 40 MG TAB PO SCH (20:48)
[2022-12-05] MEDS: ACETAMINOPHEN 325 MG TAB PO PRN (23:43)
[2022-12-06] MEDS: PIPERACILLIN/TAZOBACTAM 3.375 GM in DEXTROSE 5% 100 ML IV SCH (00:25)
[2022-12-06] MEDS: oxyCODONE/ACETAMINOPHEN 5mg/325mg TAB PO PRN (00:36)
[2022-12-06] MEDS: LEVOTHYROXINE SODIUM 175 MCG TABLET PO SCH (05:52)
[2022-12-06] MEDS: metroNIDAZOLE 500 MG/100 ML BAG IV SCH ×2 (05:52→14:26)
[2022-12-06] MEDS: POTASSIUM CHLORIDE CRTAB 20 MEQ TABCR PO SCH (08:34)
[2022-12-06] MEDS: PANTOprazole 40 MG TAB PO SCH (08:34)
[2022-12-06] MEDS: ASPIRIN 81 MG ECTAB PO SCH (08:35)
[2022-12-06] MEDS: ADVANCED PROBIOTIC 1250 MG CAPSULE PO SCH (08:35)
[2022-12-06] MEDS: FOLIC ACID 1 MG TAB PO SCH (08:35)
[2022-12-06] MEDS: CALCITRIOL 0.25 MCG CAPSULE PO SCH (08:35)
[2022-12-06] MEDS: CLOPIDOGREL BISULFATE 75 MG TAB PO SCH (08:36)
[2022-12-06] MEDS: FERROUS SULFATE 325 MG TAB PO SCH ×2 (08:36→21:44)
[2022-12-06] MEDS: EZETIMIBE 10 MG TABLET PO SCH (08:36)
[2022-12-06] MEDS: MAGNESIUM OXIDE 400 MG TAB PO SCH (08:36)
[2022-12-06] MEDS: CHLORTHALIDONE 25 MG TAB PO SCH (08:37)
[2022-12-06] MEDS: METOPROLOL TARTRATE 25 MG TAB PO SCH ×2 (08:37→21:44)
[2022-12-06] MEDS: MENTHOL-ZINC OXIDE 360 APPLN/120 GM TUBE EXT SCH ×3 (08:38→21:45)
[2022-12-06] MEDS: BUTT PASTE (ZINC OXIDE 16%) 171 APPLN/57 GM JAR EXT SCH ×3 (08:38→21:45)
[2022-12-06] MEDS: INSULIN, Rapid-Acting PUMP SCH ×4 (08:42→21:44)
[2022-12-06 08:59] LABS: Basophils # (auto) 0.06 K/uL (0-0.2); Basophils % (auto) 0.5 %; Eosinophils # (auto) 0.29 K/uL (0-0.50); Eosinophils % (auto) 2.5 %; Hematocrit (blood only) 36.2 % (42.0-52.0); Immature Granulocytes # (auto) 0.05 K/uL (0.01-0.20); Immature Granulocytes % (auto) 0.4 %; Lymphocytes # (auto) 2.15 K/uL (1.2-3.4); Lymphocytes % (auto) 18.9 %; Mean Corpuscular Hemoglobin 26.4 pg (25.0-34.0); Mean Corpuscular Hgb Conc 33.1 g/dL (32.0-36.0); Mean Corpuscular Volume 79.7 fL (80.0-100.0); Mean Platelet Volume 8.9 fL (9.4-12.4); Monocytes % (auto) 11.4 %; Neutrophils # (auto) 7.53 K/uL (1.40-6.50); Neutrophils % (auto) 66.3 %; Platelet Count 457 K/uL (130-400); RDW Coefficient of Variation 16.9 % (11.5-14.5); RDW Standard Deviation 48.2 fL (36.4-46.3); Red Blood Count 4.54 M/uL (4.70-6.10); White Blood Count 11.38 K/ul (4.8-10.8)
[2022-12-06 09:41] LABS: BUN Creatinine Ratio 15.2 (10-20); Calcium 8.9 mg/dl (8.6-10.3); Est GFR (African American) 117.6 ml/min; Est GFR (Non-African American) 101.5 ml/min; Potassium 3.2 mmol/L (3.5-5.1)
[2022-12-06] MEDS ORDERED: POTASSIUM CHLORIDE CRTAB 20 MEQ TABCR PO STA (11:37)
--- NOTE | 2022-12-06 12:09 | Surgery Progress Note ---
Date of Service December 06, 2022 Assessment & Plan (1) [place]-rectal abscess: Plan: POD # 1/#7 s/p I&D of perirectal abscess -avss - leukocytosis resolved - packing changed at bedside, healthy granulation tissue at wound base and no purulent/feculent drainage on packing change today Plan: Can transition to oral antibiotics on discharge will need home health wound care given extent of wound extending about 10 cm cephalad to ensure proper packing is done Also will need wound care follow-up Continue current medical management [facility] surgery covering weekend. Discussed with Dr. Sharp who agrees with above. 12/05/2022 12:10 PM, DR. Hawley POD # 4/#10 s/p I&D of perirectal abscess -avss - leukocytosis resolved - packing changed at bedside, healthy granulation tissue at wound base and no purulent/feculent drainage on packing change today Plan: Can transition to oral antibiotics on discharge, pt's daughter will learn how to change packing, will need home health wound care given extent of wound extending about 10 cm cephalad to ensure proper packing is done Also will need wound care follow-up Continue current medical management supportive employment case manager will work on discharge plan, will F/U, 12/06/2022 12:10 PM, DR. Hawley POD # 5/#11s/p I&D of perirectal abscess -avss - WBC 11,000 Plan: Can transition to oral antibiotics on discharge, pt's daughter will learn how to change packing, will need home health wound care given extent of wound extending about 10 cm cephalad to ensure proper packing is done Also will need wound care follow-up Continue current medical management supportive employment case manager will work on discharge plan, pt can be discharged from surgical point, po antibiotic, bactrim + flagyl for 2 weeks, F/U [facility] wound care clinic F/U me 2 weeks, sign off today, please call with questions, Thanks, Admission and Anticipated Discharge Date Admission Date: November 25, 2022 Supervising Physician Co-Signing Physician Notes pnt s&e, agree with above. POD#2/8 I&D perirectal. dressing changed, some purulent fluid. no cellulitis. cont abx, dressing changes. Subjective Patient has some pain in the perirectal region. He is concerned that he has not moved his bowels in 4 days. No chest pain shortness of breath. No nausea. 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 Hawley doing fine, stable, no fever, BM X 1. Review of Systems Constitutional: as per Subjective / HPI Eyes: as per Subjective / HPI Respiratory: COPD Cardiovascular: Additional Comments: CAD, aortic stenosis Gastrointestinal: colonoscopy last year, remove polyp, rectal abscess Genitourinary: + problem reported (kidney stone) Physical Exam Constitutional: WD/WN, vitals as above Eyes: PERRL, conjunctivae normal, anicteric sclerae Neck: trachea midline, no thyromegaly normal visual inspection and trachea midline Respiratory: normal respiratory effort, lungs clear to auscultation normal respiratory effort; no respiratory distress Cardiovascular: RRR, no murmur, no edema Gastrointestinal (Abdomen): the wound is dry, no redness, packing intact, Neurologic: patellar DTR's 2+ bilat, sensation intact Psychiatric: A+Ox3, euthymic affect Orientation: alert and oriented x 3 Results & Data Vital Signs (Past 12 Hours) Vital Signs Temp Pulse Pulse Resp BP BP Pulse Ox 12/06/22 11:10 37.3 C 72 17 119/77 95 12/06/22 07:57 37.2 C 80 18 115/63 94 12/06/22 06:00 74 12/06/22 04:00 37.1 C 74 18 120/64 94 O2 Del Method 12/06/22 11:10 Room Air 12/06/22 07:57 Room Air 12/06/22 06:00 12/06/22 04:00 Room Air Laboratory Results Abnormal lab results 12/05/22 12/05/22 12/06/22 Range/Units 16:25 20:14 07:51 WBC (4.8-10.8) K/ul RBC (4.70-6.10) M/uL Hgb (14.0-18.0) g/dl Hct (42.0-52.0) % MCV (80.0-100.0) fL RDW Std Deviation (36.4-46.3) fL RDW Coeff of Chan (11.5-14.5) % Plt Count (130-400) K/uL MPV (9.4-12.4) fL Neut # (Auto) (1.40-6.50) K/uL [place] # (Auto) (0.11-0.59) K/uL Sodium (136-145) mmol/L Potassium (3.5-5.1) mmol/L Chloride (98-107) mmol/L Glucose (70-99(Fasting)) mg/dl POC Glucose 189 H 179 H 141 H (70-99) mg/dl 12/06/22 12/06/22 12/06/22 Range/Units 08:11 08:11 11:33 WBC 11.38 H (4.8-10.8) K/ul RBC 4.54 L (4.70-6.10) M/uL Hgb 12.0 L (14.0-18.0) g/dl Hct 36.2 L (42.0-52.0) % MCV 79.7 L (80.0-100.0) fL RDW Std Deviation 48.2 H (36.4-46.3) fL RDW Coeff of Chan 16.9 H (11.5-14.5) % Plt Count 457 H (130-400) K/uL MPV 8.9 L (9.4-12.4) fL Neut # (Auto) 7.53 H (1.40-6.50) K/uL [place] # (Auto) 1.30 H (0.11-0.59) K/uL Sodium 133 L (136-145) mmol/L Potassium 3.2 L (3.5-5.1) mmol/L Chloride 96 L (98-107) mmol/L Glucose 130 H (70-99(Fasting)) mg/dl POC Glucose 163 H (70-99) mg/dl
--- NOTE | 2022-12-06 17:22 | Hospitalist Progress Note ---
Date of Service December 06, 2022 Assessment & Plan (1) Perirectal abscess: Plan: Status post two separate incision and drainage procedures. He underwent the second incision and drainage procedure on December 01. E. coli and Bacteroides isolated from the aspirate. Blood cultures negative. Leukocytosis was resolved, but slightly back up again today, however Surgeon notes wound improving and no fevers He he is currently on intravenous Zosyn and Flagyl -convert to po Bactrim and Flagyl po as per SUrgery to finish out 2 week course-last day of tx will be 12/15/22 Appreciate surgical consultation and recommendations. Follow-up with surgery in 2 weeks Colonoscopy will be done as an outpatient at a later date. Appreciate gastroenterology consultation and recommendations follow CBC in AM (2) Rectal bleeding: Plan: Most likely secondary to the perirectal abscess. Now resolved. Hemoglobin stable (3) Fever: Plan: Present on admission. Due to perirectal abscess. Now resolved (4) Type I diabetes mellitus, uncontrolled: Plan: ADA diet. Now on insulin therapy per pump. Glucose was markedly elevated on November 30, but is now much better after initiation of his insulin pump. (5) Gastric wall thickening: Plan: Mild nonspecific thickening of gastric antrum per CT abd. GI consultation appreciated. EGD will be done as an outpatient (6) Stage III pressure ulcer: Plan: Sacral decubitus area. Routine wound care. (7) COPD (chronic obstructive pulmonary disease): Plan: Stable. Continue current medical management . Not on inhalers. (8) CAD (coronary artery disease): Plan: s/p CABGx1. Stable. Continue home Plavix and baby ASA, continue atorvastatin and metoprolol (9) Aortic stenosis: Plan: s/p aortic valve replacement in 2016 ([facility] [place] (10) Hypothyroidism: Plan: Continue home levothyroxine 175mcg. Most recent TSH slightly low at 0.176 Follow-up with PCP (11) Hypertension: Plan: BPs low normal and with persistent hypokalemia -dc chlorthalidone and follow BPs, pt ok with this dc po KCl and replace as needed-watch K+ especially now that will be on Bactrim follow BMP (12) Dyslipidemia: Plan: Continue home atorvastatin and ezetimibe. (13) Below-knee amputation of right lower extremity: Plan: Small scab wound noted. Routine wound care. 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 Wound care management. Plan DVT proph-add Lovenox now that no further rectal bleeding given prolonged stay Dispo-now needing SNF- placed referrals for SNFs Admission and Anticipated Discharge Date Admission Date: November 25, 2022 Subjective Had a BM last night, minimal rectal pain. No CP, SOB, nausea, abd pain. Feels well Tele with NSR< normal rates Physical Exam Constitutional: WD/WN, vitals as above Respiratory: normal respiratory effort, lungs clear to auscultation Cardiovascular: RRR, no murmur, no edema Gastrointestinal (Abdomen): normal bowel sounds, soft, nontender, no hepatosplenomegaly Musculoskeletal: Extremities: + extremities abnormal to inspection (right BKA,left AKA) Psychiatric: A+Ox3, euthymic affect Results & Data Results & Data Vital Signs (Past 12 Hours) Vital Signs Temp Pulse Pulse Resp BP BP Pulse Ox 12/06/22 14:10 75 12/06/22 15:25 37.3 C 76 18 103/57 L 95 12/06/22 11:10 37.3 C 72 17 119/77 95 12/06/22 07:57 37.2 C 80 18 115/63 94 12/06/22 06:00 74 O2 Del Method 12/06/22 14:10 12/06/22 15:25 Room Air 12/06/22 11:10 Room Air 12/06/22 07:57 Room Air 12/06/22 06:00 Laboratory Results CBC, BMP reviewed PG Care Time/CCT Total # of Minutes Spent Total Time Spent with Patient: Total time spent is greater than 50% in coordination of care (as documented) at patient's floor/unit and/or counseling patient: Coding Level of Care Code 86287 SUB INP/OBS CARE 2/35MIN Diagnoses Perirectal abscess K61.1 Rectal bleeding K62.5 Fever R50.9 Type I diabetes mellitus, uncontrolled Gastric wall thickening K31.89 Stage III pressure ulcer L89.93 COPD (chronic obstructive pulmonary disease) J44.9 CAD (coronary artery disease) I25.10 Coronary Disease-Associated Artery/Lesion type: [place] artery [place] vs. transplanted heart: [place] heart Associated angina: without angina Aortic stenosis I35.0 Hypothyroidism E03.9 Hypothyroidism type: unspecified Hypertension I10 Hypertension type: unspecified Dyslipidemia E78.5 Below-knee amputation of right lower extremity S88.111A Above knee amputation of left lower extremity S78.112A (8) CAD (coronary artery disease) Coronary Disease-Associated Artery/Lesion type: [place] artery [place] vs. transplanted heart: [place] heart Associated angina: without angina Qualified Code(s): I25.10 - Atherosclerotic heart disease of [place] coronary artery without angina pectoris (10) Hypothyroidism Hypothyroidism type: unspecified Qualified Code(s): E03.9 - Hypothyroidism, unspecified (11) Hypertension Hypertension type: unspecified Qualified Code(s): I10 - Essential (primary) hypertension
[2022-12-06] MEDS: ACETAMINOPHEN 325 MG TAB PO PRN (17:52)
[2022-12-06] MEDS: ONDANSETRON INJ 2 MG/ML 2 ML VIAL IV PRN (17:53)
[2022-12-06] MEDS: ATORVASTATIN 40 MG TAB PO SCH (21:43)
[2022-12-06] MEDS: SULFAMETHOXAZOLE/TRIMETHOPRIM DS 800/160MG TAB PO SCH (21:43)
[2022-12-06] MEDS: metroNIDAZOLE 500 MG TAB PO SCH (21:43)
[2022-12-07] MEDS: oxyCODONE/ACETAMINOPHEN 5mg/325mg TAB PO PRN ×3 (00:33→21:20)
[2022-12-07] MEDS ORDERED: HYDROmorphone INJ 0.5 MG/0.5 ML SYR IV STA (03:47)
[2022-12-07] MEDS ORDERED: HYDROmorphone INJ 0.5 MG/0.5 ML SYR ONE (03:50)
[2022-12-07] MEDS: LEVOTHYROXINE SODIUM 175 MCG TABLET PO SCH (05:54)
[2022-12-07 08:36] LABS: Basophils # (auto) 0.09 K/uL (0-0.2); Basophils % (auto) 0.9 %; Eosinophils # (auto) 0.31 K/uL (0-0.50); Eosinophils % (auto) 3.2 %; Hematocrit (blood only) 34.5 % (42.0-52.0); Hemoglobin 11.3 g/dl (14.0-18.0); Immature Granulocytes # (auto) 0.04 K/uL (0.01-0.20); Immature Granulocytes % (auto) 0.4 %; Lymphocytes # (auto) 2.07 K/uL (1.2-3.4); Lymphocytes % (auto) 21.6 %; Mean Corpuscular Hemoglobin 26.3 pg (25.0-34.0); Mean Corpuscular Hgb Conc 32.8 g/dL (32.0-36.0); Mean Corpuscular Volume 80.2 fL (80.0-100.0); Mean Platelet Volume 8.9 fL (9.4-12.4); Monocytes # (auto) 1.38 K/uL (0.11-0.59); Monocytes % (auto) 14.4 %; Neutrophils % (auto) 59.5 %; Platelet Count 459 K/uL (130-400); RDW Coefficient of Variation 17.3 % (11.5-14.5); RDW Standard Deviation 49.6 fL (36.4-46.3); White Blood Count 9.59 K/ul (4.8-10.8)
[2022-12-07] MEDS: INSULIN, Rapid-Acting PUMP SCH ×4 (08:50→21:22)
[2022-12-07] MEDS: metroNIDAZOLE 500 MG TAB PO SCH ×3 (08:52→21:17)
[2022-12-07] MEDS: PANTOprazole 40 MG TAB PO SCH (08:52)
[2022-12-07] MEDS: SULFAMETHOXAZOLE/TRIMETHOPRIM DS 800/160MG TAB PO SCH ×2 (08:52→21:16)
[2022-12-07 09:29] LABS: BUN Creatinine Ratio 17.8 (10-20); Calcium 8.8 mg/dl (8.6-10.3); Creatinine Clr Calc Pharmacy 97.6 ml/min; Est GFR (African American) 112.8 ml/min; Est GFR (Non-African American) 97.3 ml/min; Magnesium 1.7 mg/dl (1.7-2.4); Potassium 3.4 mmol/L (3.5-5.1)
[2022-12-07] MEDS: CLOPIDOGREL BISULFATE 75 MG TAB PO SCH (10:20)
[2022-12-07] MEDS: MENTHOL-ZINC OXIDE 360 APPLN/120 GM TUBE EXT SCH ×3 (10:21→22:15)
[2022-12-07] MEDS: ASPIRIN 81 MG ECTAB PO SCH (10:21)
[2022-12-07] MEDS: BUTT PASTE (ZINC OXIDE 16%) 171 APPLN/57 GM JAR EXT SCH ×3 (10:21→22:15)
[2022-12-07] MEDS: MAGNESIUM OXIDE 400 MG TAB PO SCH (10:22)
[2022-12-07] MEDS: CALCITRIOL 0.25 MCG CAPSULE PO SCH (10:22)
[2022-12-07] MEDS: METOPROLOL TARTRATE 25 MG TAB PO SCH ×2 (10:22→21:17)
[2022-12-07] MEDS: EZETIMIBE 10 MG TABLET PO SCH (10:23)
[2022-12-07] MEDS: FERROUS SULFATE 325 MG TAB PO SCH ×2 (10:23→21:18)
[2022-12-07] MEDS: ADVANCED PROBIOTIC 1250 MG CAPSULE PO SCH (10:24)
[2022-12-07] MEDS: FOLIC ACID 1 MG TAB PO SCH (10:25)
[2022-12-07] MEDS ORDERED: POTASSIUM CHLORIDE CRTAB 20 MEQ TABCR PO STA (10:55)
[2022-12-07] MEDS ORDERED: LIDOCAINE 2% JELLY 5 ML TUBE EXT PRN (17:19)
--- NOTE | 2022-12-07 17:49 | Hospitalist Progress Note ---
Date of Service December 07, 2022 Assessment & Plan (1) Perirectal abscess: Plan: Status post two separate incision and drainage procedures. He underwent the second incision and drainage procedure on December 01. E. coli and Bacteroides isolated from the aspirate. Blood cultures negative. Leukocytosis now resolved No fevers and cleared from Surgeon's standpoint for ischarge Was on intravenous Zosyn and Flagyl -converted to po Bactrim and Flagyl po as per SUrgery to finish out 2 week course-last day of tx will be 12/15/22 Appreciate surgical consultation and recommendations. Follow-up with surgery in 2 weeks Colonoscopy will be done as an outpatient at a later date. Appreciate gastroenterology consultation and recommendations Add on lidocaine jelly prn for pain at surgical site Percocet and tylenol prn pain (2) Rectal bleeding: Plan: Most likely secondary to the perirectal abscess. Now resolved. Hemoglobin stable (3) Fever: Plan: Present on admission. Due to perirectal abscess. Now resolved (4) Type I diabetes mellitus, uncontrolled: Plan: ADA diet. Now on insulin therapy per pump. Glucose was markedly elevated on November 30, but is now much better after initiation of his insulin pump. (5) Gastric wall thickening: Plan: Mild nonspecific thickening of gastric antrum per CT abd. GI consultation appreciated. EGD will be done as an outpatient continue PPI (6) Stage III pressure ulcer: Plan: Sacral decubitus area. Routine wound care. (7) COPD (chronic obstructive pulmonary disease): Plan: Stable. Continue current medical management . Not on inhalers. (8) CAD (coronary artery disease): Plan: s/p CABGx1. Stable. Continue home Plavix and baby ASA, continue atorvastatin and metoprolol (9) Aortic stenosis: Plan: s/p aortic valve replacement in [address] [place] [place] (10) Hypothyroidism: Plan: Continue home levothyroxine 175mcg. Most recent TSH slightly low at 0.176 Follow-up with PCP (11) Hypertension: Plan: BPs low normal and with persistent hypokalemia -dcd chlorthalidone and follow BPs, pt ok with this dc po KCl and replace as needed-watch K+ especially now that will be on Bactrim- needs KCl 40 today but don't expect further need now that off chlorthalidone follow BMP in AM continue po magnesium (12) Dyslipidemia: Plan: Continue home atorvastatin and ezetimibe. (13) Below-knee amputation of right lower extremity: Plan: Small scab wound noted. Routine wound care. 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 Wound care management. PT/OT consults placed Plan DVT proph-add Lovenox now that no further rectal bleeding given prolonged stay Dispo-now needing SNF-CM placed referrals for SNFs-pending, PT/OT evals placed Admission and Anticipated Discharge Date Admission Date: November 25, 2022 Subjective Having pain around the wound site perirectal region with wiping after BMs. Otherwise no issues. Eating and dirnking, no CP, SOB Physical Exam Constitutional: WD/WN, vitals as above Respiratory: normal respiratory effort, lungs clear to auscultation Cardiovascular: RRR, no murmur, no edema Gastrointestinal (Abdomen): normal bowel sounds, soft, nontender, no hepatosplenomegaly Musculoskeletal: Extremities: + extremities abnormal to inspection (right BKA,left AKA) Psychiatric: A+Ox3, euthymic affect Results & Data Results & Data Vital Signs (Past 12 Hours) Vital Signs Temp Pulse Resp BP Pulse Ox O2 Del Method 12/07/22 15:30 36.5 C 76 17 125/76 97 Room Air 12/07/22 07:19 37.1 C 72 18 122/81 98 Room Air Laboratory Results CBC and BMP reviewed PG Care Time/CCT Total # of Minutes Spent Total Time Spent with Patient: Total time spent is greater than 50% in coordination of care (as documented) at patient's floor/unit and/or counseling patient: Coding Level of Care Code 05518 SUB INP/OBS CARE 2/35MIN Diagnoses Perirectal abscess K61.1 Rectal bleeding K62.5 Fever R50.9 Type I diabetes mellitus, uncontrolled Gastric wall thickening K31.89 Stage III pressure ulcer L89.93 COPD (chronic obstructive pulmonary disease) J44.9 CAD (coronary artery disease) I25.10 Coronary Disease-Associated Artery/Lesion type: [place] artery [place] vs. transplanted heart: [place] heart Associated angina: without angina Aortic stenosis I35.0 Hypothyroidism E03.9 Hypothyroidism type: unspecified Hypertension I10 Hypertension type: unspecified Dyslipidemia E78.5 Below-knee amputation of right lower extremity S88.111A Above knee amputation of left lower extremity S78.112A (8) CAD (coronary artery disease) Coronary Disease-Associated Artery/Lesion type: [place] artery [place] vs. transplanted heart: [place] heart Associated angina: without angina Qualified Code(s): I25.10 - Atherosclerotic heart disease of [place] coronary artery without angina pectoris (10) Hypothyroidism Hypothyroidism type: unspecified Qualified Code(s): E03.9 - Hypothyroidism, unspecified (11) Hypertension Hypertension type: unspecified Qualified Code(s): I10 - Essential (primary) hypertension
[2022-12-07] MEDS: ENOXAPARIN INJ 40 MG/0.4 ML SYR SQ SCH (18:13)
[2022-12-07] MEDS: ATORVASTATIN 40 MG TAB PO SCH (21:19)
[2022-12-08] MEDS: LEVOTHYROXINE SODIUM 175 MCG TABLET PO SCH (06:06)
[2022-12-08] MEDS: oxyCODONE/ACETAMINOPHEN 5mg/325mg TAB PO PRN ×2 (06:31→17:38)
[2022-12-08] MEDS: metroNIDAZOLE 500 MG TAB PO SCH ×3 (08:35→20:35)
[2022-12-08] MEDS: SULFAMETHOXAZOLE/TRIMETHOPRIM DS 800/160MG TAB PO SCH ×2 (08:36→20:35)
[2022-12-08] MEDS: PANTOprazole 40 MG TAB PO SCH (08:36)
[2022-12-08] MEDS: METOPROLOL TARTRATE 25 MG TAB PO SCH ×2 (08:37→20:36)
[2022-12-08] MEDS: FERROUS SULFATE 325 MG TAB PO SCH ×2 (08:38→20:35)
[2022-12-08] MEDS: INSULIN, Rapid-Acting PUMP SCH ×3 (09:35→17:37)
[2022-12-08] MEDS: ASPIRIN 81 MG ECTAB PO SCH (09:36)
[2022-12-08] MEDS: CLOPIDOGREL BISULFATE 75 MG TAB PO SCH (09:36)
[2022-12-08] MEDS: CALCITRIOL 0.25 MCG CAPSULE PO SCH (09:36)
[2022-12-08] MEDS: EZETIMIBE 10 MG TABLET PO SCH (09:37)
[2022-12-08] MEDS: ADVANCED PROBIOTIC 1250 MG CAPSULE PO SCH (09:38)
[2022-12-08] MEDS: FOLIC ACID 1 MG TAB PO SCH (09:38)
[2022-12-08] MEDS: MAGNESIUM OXIDE 400 MG TAB PO SCH (09:39)
[2022-12-08] MEDS: MENTHOL-ZINC OXIDE 360 APPLN/120 GM TUBE EXT SCH ×3 (09:40→22:10)
[2022-12-08] MEDS: BUTT PASTE (ZINC OXIDE 16%) 171 APPLN/57 GM JAR EXT SCH ×3 (09:40→22:11)
[2022-12-08 09:44] LABS: BUN Creatinine Ratio 21.8 (10-20); Calcium 8.4 mg/dl (8.6-10.3); Creatinine Clr Calc Pharmacy 91.3 ml/min; Est GFR (African American) 109.8 ml/min; Est GFR (Non-African American) 94.7 ml/min; Magnesium 1.6 mg/dl (1.7-2.4); Potassium 3.9 mmol/L (3.5-5.1)
[2022-12-08] MEDS ORDERED: MAGNESIUM SULFATE / D5W 1 GM/100 ML BAG IV ONE (10:42)
[2022-12-08] MEDS: ENOXAPARIN INJ 40 MG/0.4 ML SYR SQ SCH (18:43)
--- NOTE | 2022-12-08 20:23 | Hospitalist Progress Note ---
Date of Service December 08, 2022 Assessment & Plan (1) Perirectal abscess: Plan: Status post two separate incision and drainage procedures. He underwent the second incision and drainage procedure on December 01. E. coli and Bacteroides isolated from the aspirate. Blood cultures negative. Leukocytosis now resolved No fevers and cleared from Surgeon's standpoint for discharge Was on intravenous Zosyn and Flagyl -converted to po Bactrim and Flagyl po as per Surgery to finish out 2 week course-last day of tx will be 12/15/22 Appreciate surgical consultation and recommendations. Follow-up with surgery in 2 weeks Colonoscopy will be done as an outpatient at a later date. Appreciate gastroenterology consultation and recommendations Continue on lidocaine jelly prn for pain at surgical site Percocet and tylenol prn pain Needs packing changes every other day (2) Rectal bleeding: Plan: Most likely secondary to the perirectal abscess. Now resolved. Hemoglobin stable (3) Fever: Plan: Present on admission. Due to perirectal abscess. Now resolved (4) Type I diabetes mellitus, uncontrolled: Plan: on insulin therapy per pump. with significantly worsening glucose readings today now into the 400s-suspect pump failure -remove pump -give reg insulin 10 units IV x 1 now, then Lantus 30 units hs, Novolog SSI with 25 CF and 1:8 CR which is what his pump is set to (5) Gastric wall thickening: Plan: Mild nonspecific thickening of gastric antrum per CT abd. GI consultation appreciated. EGD will be done as an outpatient continue PPI (6) Stage III pressure ulcer: Plan: Sacral decubitus area. Routine wound care. (7) COPD (chronic obstructive pulmonary disease): Plan: Stable. Continue current medical management . Not on inhalers. (8) CAD (coronary artery disease): Plan: s/p CABGx1. Stable. Continue home Plavix and baby ASA, continue atorvastatin and metoprolol (9) Aortic stenosis: Plan: [place] [place] (10) Hypothyroidism: Plan: Continue home levothyroxine 175mcg. Most recent TSH slightly low at 0.176 Follow-up with PCP (11) Hypertension: Plan: BPs low normal and with persistent hypokalemia -dcd chlorthalidone and follow BPs, pt ok with this dc po KCl and replace as needed-watch K+ especially now that will be on Bactrim follow BMP in AM continue po magnesium (12) Dyslipidemia: Plan: Continue home atorvastatin and ezetimibe. (13) Below-knee amputation of right lower extremity: Plan: Small scab wound noted. Routine wound care. 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 Wound care management. PT/OT consults placed Plan DVT proph-Lovenox now that no further rectal bleeding given prolonged stay Dispo-now needing SNF-CM placed referrals for SNFs-pending, PT/OT evals placed Medically stable for discharge tomorrow Admission and Anticipated Discharge Date Admission Date: November 25, 2022 Subjective Pt had rectal pain with sitting up to work with PT today. Otherwise no complaints. Awaiting placement Physical Exam Constitutional: WD/WN, vitals as above Respiratory: normal respiratory effort, lungs clear to auscultation Cardiovascular: RRR, no murmur, no edema Gastrointestinal (Abdomen): normal bowel sounds, soft, nontender, no hepatosplenomegaly Musculoskeletal: Extremities: + extremities abnormal to inspection (right BKA,left AKA) Psychiatric: A+Ox3, euthymic affect Results & Data Results & Data Vital Signs (Past 12 Hours) Vital Signs Temp Pulse Resp BP Pulse Ox O2 Del Method 12/08/22 15:11 37.2 C 72 16 120/69 96 Room Air Laboratory Results BMP, magnesium reviewed PG Care Time/CCT Total # of Minutes Spent Total Time Spent with Patient: Total time spent is greater than 50% in coordination of care (as documented) at patient's floor/unit and/or counseling patient: Coding Level of Care Code 20645 SUB INP/OBS CARE 2/35MIN Diagnoses Perirectal abscess K61.1 Rectal bleeding K62.5 Fever R50.9 Type I diabetes mellitus, uncontrolled Gastric wall thickening K31.89 Stage III pressure ulcer L89.93 COPD (chronic obstructive pulmonary disease) J44.9 CAD (coronary artery disease) I25.10 Coronary Disease-Associated Artery/Lesion type: [place] artery [place] vs. transplanted heart: [place] heart Associated angina: without angina Aortic stenosis I35.0 Hypothyroidism E03.9 Hypothyroidism type: unspecified Hypertension I10 Hypertension type: unspecified Dyslipidemia E78.5 Below-knee amputation of right lower extremity S88.111A Above knee amputation of left lower extremity S78.112A (8) CAD (coronary artery disease) Coronary Disease-Associated Artery/Lesion type: [place] artery [place] vs. transplanted heart: [place] heart Associated angina: without angina Qualified Code(s): I25.10 - Atherosclerotic heart disease of [place] coronary artery without angina pectoris (10) Hypothyroidism Hypothyroidism type: unspecified Qualified Code(s): E03.9 - Hypothyroidism, unspecified (11) Hypertension Hypertension type: unspecified Qualified Code(s): I10 - Essential (primary) hypertension
[2022-12-08] MEDS ORDERED: INSULIN HUMAN REGULAR PER UNIT 10 UNITS in SYRINGE 0 ML IV STA (20:29)
[2022-12-08] MEDS: ATORVASTATIN 40 MG TAB PO SCH (20:35)
[2022-12-08] MEDS ORDERED: PHARMACY GLYCEMIC MGMT CONSULT PRN (20:39)
[2022-12-08] MEDS ORDERED: INSULIN HUMAN REGULAR PER UNIT 10 UNITS in SYRINGE 9.9 ML IV ONE (20:45)
[2022-12-08] MEDS ORDERED: LANTUS PER UNIT CHARGE SQ SCH (21:00)
[2022-12-08] MEDS: INSULIN ASPART PER UNIT CHARGE SC SCH (22:20)
[2022-12-09] MEDS: INSULIN ASPART PER UNIT CHARGE SC SCH ×6 (00:04→20:51)
[2022-12-09] MEDS: oxyCODONE/ACETAMINOPHEN 5mg/325mg TAB PO PRN (03:26)
[2022-12-09] MEDS: LEVOTHYROXINE SODIUM 175 MCG TABLET PO SCH (06:04)
--- NOTE | 2022-12-09 08:34 | Hospitalist Progress Note ---
Date of Service December 09, 2022 Assessment & Plan (1) Perirectal abscess: Plan: -Status post two separate incision and drainage procedures for perirectal abscess, with 2nd I+D on 12/01. E. coli and Bacteroides isolated from the aspirate. Blood cultures negative. Leukocytosis resolved since admission and I+D. Continue Bactrim/Flagyl per surgery until 12/15/22 (total of 2 weeks of Abx). Follow-up with surgery in 2 weeks. Colonoscopy will be done as an outpatient at a later date. Appreciate gastroenterology consultation and recommendations. Continue on lidocaine jelly prn for pain at surgical site Percocet and tylenol as well prn pain Needs packing changes every other day, this is a barrier to discharge home as patient has bilateral BKA and difficulty with bottom care, will need assistance for the near future at facility with wound checks and care for optimal healing (2) Rectal bleeding: Plan: Most likely secondary to the perirectal abscess, resolved since admission and Hgb stable on previous checks (3) Type I diabetes mellitus, uncontrolled: Plan: On insulin therapy per pump, however with suspected pump failure this admission With difficult to control BSGs appreciate glycemic management consult, cont basal/bolus insulin DM2 diet (4) Gastric wall thickening: Plan: Mild nonspecific thickening of gastric antrum per CT abd. GI consultation appreciated. EGD will be done as an outpatient continue PPI (5) Stage III pressure ulcer: Plan: Sacral decubitus area. Routine wound care as above, q2day dressing changes, to be continued at skilled facility on discharge (6) COPD (chronic obstructive pulmonary disease): Plan: Stable. (7) CAD (coronary artery disease): Plan: s/p CABGx1. Stable. Continue home Plavix and baby ASA, atorvastatin and metoprolol (8) Aortic stenosis: Plan: s/p aortic valve replacement in 2016 ([facility] [place] (9) Hypothyroidism: Plan: Continue home levothyroxine 175mcg. Most recent TSH slightly low at 0.176, follow-up with PCP (10) Hypertension: Plan: Chlorthalidone discontinued this admission due to hyperkalemia and low normal BP, BP normotensive and K 3.8 today BMP intermittent and continue to monitor BP and K on discharge to SNF (11) Dyslipidemia: Plan: Continue home atorvastatin and ezetimibe. (12) Below-knee amputation of right lower extremity: Plan: Small scab wound noted by previous provider. Routine wound care. (13) Above knee amputation of left lower extremity: Plan: Does not yet have prosthesis for left LE but has one for the right. Wound care management. PT/OT consults placed Plan DVT proph-Lovenox now that no further rectal bleeding given prolonged stay Dispo-awaiting SNF placement anticipate possible discharge ~Monday, medically stable when bed available Admission and Anticipated Discharge Date Admission Date: November 25, 2022 Subjective Patient without any acute events overnight, awaiting placement, with continued dressing changes to his abscess area with some tenderness in his bottom with movements, but improved, and no other complaints today. Review of Systems Review of Systems: All systems reviewed & are unremarkable except as noted in Subjective Physical Exam Constitutional: WD/WN, vitals as above Respiratory: normal respiratory effort, lungs clear to auscultation Cardiovascular: RRR, no murmur, no edema Gastrointestinal (Abdomen): normal bowel sounds, soft, nontender, no hepatosplenomegaly Skin: no rashes, warm and dry Psychiatric: A+Ox3, euthymic affect Results & Data Results & Data Vital Signs (Past 12 Hours) Vital Signs Temp Pulse Resp BP Pulse Ox O2 Del Method 12/09/22 08:04 36.7 C 72 16 118/67 95 Room Air 12/08/22 21:10 Room Air 12/08/22 22:22 36.8 C 71 105/54 L 93 Room Air PG Care Time/CCT Total # of Minutes Spent Total Time Spent with Patient: Total time spent is greater than 50% in coordination of care (as documented) at patient's floor/unit and/or counseling patient: Coding Level of Care Code 43108 SUB INP/OBS CARE 2/35MIN Diagnoses Perirectal abscess K61.1 Rectal bleeding K62.5 Type I diabetes mellitus, uncontrolled Gastric wall thickening K31.89 Stage III pressure ulcer L89.93 COPD (chronic obstructive pulmonary disease) J44.9 CAD (coronary artery disease) I25.10 Associated angina: without angina Coronary Disease-Associated Artery/Lesion type: [place] artery [place] vs. transplanted heart: [place] heart Aortic stenosis I35.0 Hypothyroidism E03.9 Hypothyroidism type: unspecified Hypertension I10 Hypertension type: unspecified Dyslipidemia E78.5 Below-knee amputation of right lower extremity S88.111A Above knee amputation of left lower extremity S78.112A (7) CAD (coronary artery disease) Associated angina: without angina Coronary Disease-Associated Artery/Lesion type: [place] artery [place] vs. transplanted heart: [place] heart Qualified Code(s): I25.10 - Atherosclerotic heart disease of [place] coronary artery without angina pectoris (9) Hypothyroidism Hypothyroidism type: unspecified Qualified Code(s): E03.9 - Hypothyroidism, unspecified (10) Hypertension Hypertension type: unspecified Qualified Code(s): I10 - Essential (primary) hypertension
[2022-12-09 08:55] LABS: BUN Creatinine Ratio 23.2 (10-20); Calcium 8.3 mg/dl (8.6-10.3); Creatinine Clr Calc Pharmacy 103.3 ml/min; Est GFR (African American) 115.5 ml/min; Est GFR (Non-African American) 99.6 ml/min; Magnesium 1.7 mg/dl (1.7-2.4); Potassium 3.8 mmol/L (3.5-5.1)
[2022-12-09] MEDS: ASPIRIN 81 MG ECTAB PO SCH (09:01)
[2022-12-09] MEDS: CALCITRIOL 0.25 MCG CAPSULE PO SCH (09:02)
[2022-12-09] MEDS: CLOPIDOGREL BISULFATE 75 MG TAB PO SCH (09:02)
[2022-12-09] MEDS: FERROUS SULFATE 325 MG TAB PO SCH ×2 (09:03→20:42)
[2022-12-09] MEDS: EZETIMIBE 10 MG TABLET PO SCH (09:03)
[2022-12-09] MEDS: FOLIC ACID 1 MG TAB PO SCH (09:04)
[2022-12-09] MEDS: ADVANCED PROBIOTIC 1250 MG CAPSULE PO SCH (09:04)
[2022-12-09] MEDS: MAGNESIUM OXIDE 400 MG TAB PO SCH (09:04)
[2022-12-09] MEDS: MENTHOL-ZINC OXIDE 360 APPLN/120 GM TUBE EXT SCH ×3 (09:05→20:43)
[2022-12-09] MEDS: METOPROLOL TARTRATE 25 MG TAB PO SCH ×2 (09:05→20:43)
[2022-12-09] MEDS: metroNIDAZOLE 500 MG TAB PO SCH ×3 (09:06→20:43)
[2022-12-09] MEDS: PANTOprazole 40 MG TAB PO SCH (09:07)
[2022-12-09] MEDS: SULFAMETHOXAZOLE/TRIMETHOPRIM DS 800/160MG TAB PO SCH ×2 (09:07→20:42)
[2022-12-09] MEDS: BUTT PASTE (ZINC OXIDE 16%) 171 APPLN/57 GM JAR EXT SCH ×3 (09:08→20:43)
--- NOTE | 2022-12-09 14:42 | Pharmacy Report ---
Pharmacy Glycemic Short Note 2 - Date of Service December 09, 2022 - Glycemic Short BSG Results (Last 24 hours): 12/08/22 12/08/22 12/08/22 17:32 17:33 20:24 Glucose POC Glucose 412 H* 409 H* 425 H* 12/08/22 12/08/22 12/08/22 20:27 20:40 21:52 Glucose 431 H* POC Glucose 433 H* 451 H* 12/08/22 12/08/22 12/09/22 23:40 23:43 03:55 Glucose POC Glucose 324 H* 331 H* 112 H 12/09/22 12/09/22 12/09/22 07:44 08:01 12:12 Glucose 115 H POC Glucose 127 H 283 H OUTPATIENT ANTIDIABETIC REGIMEN: * Novolog pump 1.5 units/hr, CF 25, CR 8 ASSESSMENT: * 67 year old type 1 diabetic here for perirectal abscess. BSGs trending up yesterday with insulin pump and concerns for pump failure. Pump taken off last night and transitioned to SQ insulin * Fasting BSG 115 mg/dL - received only 30 units of basal last evening. Based upon insulin pump, basal closer to 35 units - will increase dose today to reflect pump * DM educator in to evaluate pump and reports pump working fine. She feels that BSGs increased yesterday due to poor absorption/bad site. Patient okay with trialing SQ insulin for now and over weekend. He would however like to be put back on pump if BSGs become uncontrollable * DM educator will be here on Monday over the weekend, could re-evaluate to see if pump can be put back on PLAN FOR INPATIENT GLYCEMIC CONTROL: * Hold outpatient oral diabetes medications * Basal insulin * Lantus 35 units at dinner * Bolus insulin * NovoLog per scale ACHS or Q6hrs while NPO * Goal Range: Low 110 mg/dL - High 140 mg/dL * Correction Factor: 25 mg/dL/unit * Nutritional / Prandial insulin per carb ratio of 1 unit per 7 grams CHO consumed
[2022-12-09] MEDS ORDERED: LANTUS PER UNIT CHARGE SQ SCH (18:00)
[2022-12-09] MEDS: ENOXAPARIN INJ 40 MG/0.4 ML SYR SQ SCH (19:18)
[2022-12-09] MEDS: ATORVASTATIN 40 MG TAB PO SCH (20:41)
[2022-12-09] MEDS: DOCUSATE SODIUM 100 MG CAP PO PRN (20:55)
[2022-12-10] MEDS ORDERED: INSULIN ASPART PER UNIT CHARGE SC SCH
[2022-12-10] MEDS: oxyCODONE/ACETAMINOPHEN 5mg/325mg TAB PO PRN ×2 (01:00→21:10)
[2022-12-10] MEDS ORDERED: POLYETHYLENE (MIRALAX) 17 GM PACK PO PRN (01:05)
[2022-12-10] MEDS: LEVOTHYROXINE SODIUM 175 MCG TABLET PO SCH (05:49)
[2022-12-10] MEDS: ACETAMINOPHEN 325 MG TAB PO PRN (06:11)
[2022-12-10 06:37] LABS: BUN Creatinine Ratio 18.2 (10-20); Calcium 8.7 mg/dl (8.6-10.3); Creatinine Clr Calc Pharmacy 92.5 ml/min; Est GFR (African American) 110.4 ml/min; Est GFR (Non-African American) 95.2 ml/min; Potassium 4.1 mmol/L (3.5-5.1)
[2022-12-10] MEDS: FOLIC ACID 1 MG TAB PO SCH (07:50)
[2022-12-10] MEDS: METOPROLOL TARTRATE 25 MG TAB PO SCH ×2 (07:50→21:02)
[2022-12-10] MEDS: FERROUS SULFATE 325 MG TAB PO SCH ×2 (07:51→21:02)
[2022-12-10] MEDS: CLOPIDOGREL BISULFATE 75 MG TAB PO SCH (07:51)
[2022-12-10] MEDS: SULFAMETHOXAZOLE/TRIMETHOPRIM DS 800/160MG TAB PO SCH ×2 (07:51→21:02)
[2022-12-10] MEDS: metroNIDAZOLE 500 MG TAB PO SCH ×3 (07:51→21:02)
[2022-12-10] MEDS: ADVANCED PROBIOTIC 1250 MG CAPSULE PO SCH (07:51)
[2022-12-10] MEDS: CALCITRIOL 0.25 MCG CAPSULE PO SCH (07:51)
[2022-12-10] MEDS: ASPIRIN 81 MG ECTAB PO SCH (07:52)
[2022-12-10] MEDS: BUTT PASTE (ZINC OXIDE 16%) 171 APPLN/57 GM JAR EXT SCH ×3 (07:52→21:00)
[2022-12-10] MEDS: EZETIMIBE 10 MG TABLET PO SCH (07:52)
[2022-12-10] MEDS: MENTHOL-ZINC OXIDE 360 APPLN/120 GM TUBE EXT SCH ×3 (07:52→21:00)
[2022-12-10] MEDS: MAGNESIUM OXIDE 400 MG TAB PO SCH (07:52)
[2022-12-10] MEDS: PANTOprazole 40 MG TAB PO SCH (07:52)
[2022-12-10] MEDS: INSULIN ASPART PER UNIT CHARGE SC SCH ×4 (08:30→20:56)
--- NOTE | 2022-12-10 09:27 | Hospitalist Progress Note ---
Date of Service December 10, 2022 Assessment & Plan (1) Perirectal abscess: Plan: Status post two separate incision and drainage procedures for perirectal abscess, with 2nd I+D on 12/01. E. coli and Bacteroides isolated from the aspirate. Blood cultures negative. Leukocytosis resolved since admission and I+D. Continue Bactrim/Flagyl per surgery until 12/15/22 (total of 2 weeks of Abx). Follow-up with surgery 2 weeks postop. Colonoscopy will be done as an outpatient at a later date. Appreciate gastroenterology consultation and recommendations during this admission. Continue on lidocaine jelly prn for pain at surgical site, local wound care, to continue at outside facility Percocet and Tylenol as well prn pain Needs packing changes every other day; this is a barrier to discharge home as patient has bilateral BKA and difficulty with bottom care, will need assistance for the near future at facility with wound checks and care for optimal healing Patient is medically stable for discharge to facility when insurance authorization is approved and able to find bed at facility, case management is involved in assisting with this process, anticipate possible bed early this upcoming week (2) Rectal bleeding: Plan: Most likely secondary to the perirectal abscess, resolved since admission and Hgb stable on previous checks (3) Type I diabetes mellitus, uncontrolled: Plan: On insulin therapy per pump, however with suspected pump failure this admission With difficult to control BSGs appreciate glycemic management consult, cont basal/bolus insulin DM2 diet (4) Gastric wall thickening: Plan: Mild nonspecific thickening of gastric antrum per CT abd. GI consultation appreciated. EGD will be done as an outpatient continue PPI (5) Stage III pressure ulcer: Plan: Sacral decubitus area. Routine wound care as above, q2day dressing changes, to be continued at skilled facility on discharge (6) COPD (chronic obstructive pulmonary disease): Plan: Stable, patient not requiring supplemental oxygen (7) CAD (coronary artery disease): Plan: s/p CABGx1. Stable. Continue home Plavix and baby ASA, atorvastatin and metoprolol (8) Aortic stenosis: Plan: s/p aortic valve replacement in 2016 ([facility] [place]). (9) Hypothyroidism: Plan: Continue home levothyroxine 175mcg. Most recent TSH slightly low at 0.176, follow-up with PCP (10) Hypertension: Plan: Chlorthalidone discontinued this admission due to hyperkalemia and low normal BP, BP within goal for age and K 3.8, continue to hold this medication at this time, can revisit this in the outpatient setting if uncontrolled hypertension (11) Dyslipidemia: Plan: Continue home atorvastatin and ezetimibe. (12) Below-knee amputation of right lower extremity: Plan: Small scab wound noted by previous provider. Routine wound care. (13) Above knee amputation of left lower extremity: Plan: Does not yet have prosthesis for left LE but has one for the right. Wound care management. PT/OT consults appreciated, skilled rehab recommended (14) Constipation: Plan: Patient on bowel regimen at home, and given patient is requiring opiate pain medications at times for turns and with position changes will start that bowel regimen, also started milk of magnesia at patient request as this is what he uses when he gets "backed up" at home if his daily MiraLAX is not working Plan DVT proph-Lovenox now that no further rectal bleeding given prolonged stay Dispo-awaiting SNF placement anticipate possible discharge ~Monday, medically stable when bed available Admission and Anticipated Discharge Date Admission Date: November 25, 2022 Subjective No acute events overnight, does report some pain with transition of movement that was helped with oral as needed medications that have since fallen off NOV. Reports he is on a constipation regimen at home, and sometimes takes milk of magnesia if "backed up". No other complaints today. Review of Systems Review of Systems: All systems reviewed & are unremarkable except as noted in Subjective Physical Exam Constitutional: WD/WN, vitals as above Respiratory: normal respiratory effort, lungs clear to auscultation Cardiovascular: RRR, no murmur, no edema Gastrointestinal (Abdomen): normal bowel sounds, soft, nontender, no hepatosplenomegaly Skin: no rashes, warm and dry Psychiatric: A+Ox3, euthymic affect Results & Data Results & Data Vital Signs (Past 12 Hours) Vital Signs Temp Pulse Resp BP Pulse Ox O2 Del Method 12/10/22 07:06 36.7 C 71 18 104/51 L 95 Room Air PG Care Time/CCT Total # of Minutes Spent Total Time Spent with Patient: Total time spent is greater than 50% in coordination of care (as documented) at patient's floor/unit and/or counseling patient: Coding Level of Care Code 72738 SUB INP/OBS CARE 2/35MIN Diagnoses Perirectal abscess K61.1 Rectal bleeding K62.5 Type I diabetes mellitus, uncontrolled Gastric wall thickening K31.89 Stage III pressure ulcer L89.93 COPD (chronic obstructive pulmonary disease) J44.9 CAD (coronary artery disease) I25.10 Associated angina: without angina Coronary Disease-Associated Artery/Lesion type: [place] artery [place] vs. transplanted heart: [place] heart Aortic stenosis I35.0 Hypothyroidism E03.9 Hypothyroidism type: unspecified Hypertension I10 Hypertension type: unspecified Dyslipidemia E78.5 Below-knee amputation of right lower extremity S88.111A Above knee amputation of left lower extremity S78.112A Constipation K59.00 (7) CAD (coronary artery disease) Associated angina: without angina Coronary Disease-Associated Artery/Lesion type: [place] artery [place] vs. transplanted heart: [place] heart Qualified Code(s): I25.10 - Atherosclerotic heart disease of [place] coronary artery without angina pectoris (9) Hypothyroidism Hypothyroidism type: unspecified Qualified Code(s): E03.9 - Hypothyroidism, unspecified (10) Hypertension Hypertension type: unspecified Qualified Code(s): I10 - Essential (primary) hypertension
[2022-12-10] MEDS ORDERED: MAGNESIUM HYDROXIDE SUSP 30 ML UDC PO PRN (16:08)
[2022-12-10] MEDS: ENOXAPARIN INJ 40 MG/0.4 ML SYR SQ SCH (18:06)
[2022-12-10] MEDS: LANTUS PER UNIT CHARGE SQ SCH (20:56)
[2022-12-10] MEDS: ATORVASTATIN 40 MG TAB PO SCH (21:02)
[2022-12-11] MEDS: ACETAMINOPHEN 325 MG TAB PO PRN ×2 (04:47→10:53)
[2022-12-11] MEDS: LEVOTHYROXINE SODIUM 175 MCG TABLET PO SCH (04:47)
[2022-12-11 06:51] LABS: Hematocrit (blood only) 35.8 % (42.0-52.0); Hemoglobin 11.6 g/dl (14.0-18.0); Mean Corpuscular Hemoglobin 26.5 pg (25.0-34.0); Mean Corpuscular Hgb Conc 32.4 g/dL (32.0-36.0); Mean Corpuscular Volume 81.7 fL (80.0-100.0); Mean Platelet Volume 8.9 fL (9.4-12.4); Platelet Count 476 K/uL (130-400); RDW Coefficient of Variation 17.8 % (11.5-14.5); Red Blood Count 4.38 M/uL (4.70-6.10); White Blood Count 12.13 K/ul (4.8-10.8)
[2022-12-11 07:03] LABS: BUN Creatinine Ratio 17.3 (10-20); Calcium 8.7 mg/dl (8.6-10.3); Est GFR (African American) 111.6 ml/min; Est GFR (Non-African American) 96.3 ml/min; Potassium 4.4 mmol/L (3.5-5.1)
--- NOTE | 2022-12-11 09:25 | Hospitalist Progress Note ---
Date of Service December 11, 2022 Assessment & Plan (1) Perirectal abscess: Plan: Status post two separate incision and drainage procedures for perirectal abscess, with 2nd I+D on 12/01. Leukocytosis improved since admission and I+D. E. coli and Bacteroides isolated from the aspirate. Blood cultures negative. Continue Bactrim/Flagyl per surgery until 12/15/22 (total of 2 weeks of Abx). Follow-up with surgery 2 weeks postop. Colonoscopy will be done as an outpatient at a later date. Appreciate gastroenterology consultation and recommendations during this admission. Continue on lidocaine jelly prn for pain at surgical site, local wound care, packing changes every other day Percocet and Tylenol as well prn pain; did add daily dose of Dilaudid as needed for pre-physical therapy/wound changes due to significant pain during these moments Awaiting discharge to skilled facility for continued wound care management (unable to care for wound at home due to bilateral BKA) and physical therapy (2) Rectal bleeding: Plan: Most likely secondary to perirectal abscess, resolved since admission and Hgb continues to be stable (11.6 on 12/11) (3) Type I diabetes mellitus, uncontrolled: Plan: On insulin therapy per pump, however with suspected pump failure this admission We will try to resume pump tomorrow evening 12/12, last Lantus dose this evening 12/11, pharmacy aware (4) Gastric wall thickening: Plan: Mild nonspecific thickening of gastric antrum per CT abd. GI consultation appreciated. EGD will be done as an outpatient Continue PPI (5) Stage III pressure ulcer: Plan: Sacral decubitus area. Routine wound care as above, q2day dressing changes, to be continued at skilled facility on discharge (6) COPD (chronic obstructive pulmonary disease): Plan: Stable, patient not requiring supplemental oxygen (7) CAD (coronary artery disease): Plan: s/p CABGx1. Stable. Continue home Plavix and baby ASA, atorvastatin and metoprolol (8) Aortic stenosis: Plan: s/p aortic valve replacement in 2016 ([facility]) (9) Hypothyroidism: Plan: Continue home levothyroxine 175mcg Most recent TSH slightly low at 0.176, follow-up with PCP (10) Hypertension: Plan: Chlorthalidone discontinued this admission due to hyperkalemia and low normal BP, BP within goal for age and K 3.8, continue to hold this medication at this time, can revisit this in the outpatient setting if uncontrolled hypertension (11) Dyslipidemia: Plan: Continue home atorvastatin and ezetimibe (12) Below-knee amputation of right lower extremity: Plan: Small scab wound noted by previous provider. Routine wound care (13) Above knee amputation of left lower extremity: Plan: Does not yet have prosthesis for left LE but has one for the right PT/OT consults appreciated, skilled rehab recommended (14) Constipation: Plan: Patient on bowel regimen at home, and given patient is requiring opiate pain medications at times for turns and with position changes will start that bowel regimen, continue milk of magnesia, MiraLAX, Colace for bowel regimen especially given that patient is relatively bedbound at this time and is fearful of bowel movements due to rectal pain/pressure Plan DVT proph-Lovenox Dispo-awaiting SNF placement anticipate possible discharge ~Monday Admission and Anticipated Discharge Date Admission Date: November 25, 2022 Subjective No acute events overnight, does feel constipated, did have a bowel movement yesterday some hard stool with watery stool around it, requests Colace again today Review of Systems Review of Systems: All systems reviewed & are unremarkable except as noted in Subjective Physical Exam Constitutional: WD/WN, vitals as above Respiratory: normal respiratory effort, lungs clear to auscultation Cardiovascular: RRR, no murmur, no edema Gastrointestinal (Abdomen): normal bowel sounds, soft, nontender, no hepatosplenomegaly Skin: no rashes, warm and dry Psychiatric: A+Ox3, euthymic affect Results & Data Results & Data Vital Signs (Past 12 Hours) Vital Signs Temp Pulse Resp BP Pulse Ox O2 Del Method 12/11/22 07:10 36.7 C 76 18 129/78 96 Room Air PG Care Time/CCT Total # of Minutes Spent Total Time Spent with Patient: Total time spent is greater than 50% in coordination of care (as documented) at patient's floor/unit and/or counseling patient: Coding Level of Care Code 86510 SUB INP/OBS CARE 3/50MIN Diagnoses Perirectal abscess K61.1 Rectal bleeding K62.5 Type I diabetes mellitus, uncontrolled Gastric wall thickening K31.89 Stage III pressure ulcer L89.93 COPD (chronic obstructive pulmonary disease) J44.9 CAD (coronary artery disease) I25.10 Associated angina: without angina Coronary Disease-Associated Artery/Lesion type: [place] artery [place] vs. transplanted heart: [place] heart Aortic stenosis I35.0 Hypothyroidism E03.9 Hypothyroidism type: unspecified Hypertension I10 Hypertension type: unspecified Dyslipidemia E78.5 Below-knee amputation of right lower extremity S88.111A Above knee amputation of left lower extremity S78.112A Constipation K59.00 (7) CAD (coronary artery disease) Associated angina: without angina Coronary Disease-Associated Artery/Lesion type: [place] artery [place] vs. transplanted heart: [place] heart Qualified Code(s): I25.10 - Atherosclerotic heart disease of [place] coronary artery without angina pectoris (9) Hypothyroidism Hypothyroidism type: unspecified Qualified Code(s): E03.9 - Hypothyroidism, unspecified (10) Hypertension Hypertension type: unspecified Qualified Code(s): I10 - Essential (primary) hypertension
[2022-12-11] MEDS: POLYETHYLENE (MIRALAX) 17 GM PACK PO SCH (09:54)
[2022-12-11] MEDS: INSULIN ASPART PER UNIT CHARGE SC SCH ×4 (10:00→21:40)
[2022-12-11] MEDS: metroNIDAZOLE 500 MG TAB PO SCH ×3 (10:01→21:38)
[2022-12-11] MEDS: CALCITRIOL 0.25 MCG CAPSULE PO SCH (10:02)
[2022-12-11] MEDS: FOLIC ACID 1 MG TAB PO SCH (10:02)
[2022-12-11] MEDS: SULFAMETHOXAZOLE/TRIMETHOPRIM DS 800/160MG TAB PO SCH ×2 (10:02→21:39)
[2022-12-11] MEDS: FERROUS SULFATE 325 MG TAB PO SCH ×2 (10:02→21:41)
[2022-12-11] MEDS: PANTOprazole 40 MG TAB PO SCH (10:02)
[2022-12-11] MEDS: CLOPIDOGREL BISULFATE 75 MG TAB PO SCH (10:02)
[2022-12-11] MEDS: METOPROLOL TARTRATE 25 MG TAB PO SCH ×2 (10:03→21:39)
[2022-12-11] MEDS: ADVANCED PROBIOTIC 1250 MG CAPSULE PO SCH (10:05)
[2022-12-11] MEDS: ASPIRIN 81 MG ECTAB PO SCH (10:05)
[2022-12-11] MEDS: DOCUSATE SODIUM 100 MG CAP PO SCH (10:06)
[2022-12-11] MEDS: EZETIMIBE 10 MG TABLET PO SCH (10:06)
[2022-12-11] MEDS: MAGNESIUM OXIDE 400 MG TAB PO SCH (10:07)
[2022-12-11] MEDS: BUTT PASTE (ZINC OXIDE 16%) 171 APPLN/57 GM JAR EXT SCH ×3 (10:07→21:40)
[2022-12-11] MEDS: MENTHOL-ZINC OXIDE 360 APPLN/120 GM TUBE EXT SCH ×3 (10:08→21:39)
[2022-12-11] MEDS: ENOXAPARIN INJ 40 MG/0.4 ML SYR SQ SCH (18:07)
[2022-12-11] MEDS: ATORVASTATIN 40 MG TAB PO SCH (21:39)
[2022-12-11] MEDS: LANTUS PER UNIT CHARGE SQ SCH (21:40)
[2022-12-12] MEDS: HYDROmorphone INJ 0.5 MG/0.5 ML SYR IV PRN ×3 (01:46→22:03)
[2022-12-12] MEDS: LEVOTHYROXINE SODIUM 175 MCG TABLET PO SCH (05:36)
--- NOTE | 2022-12-12 07:41 | Hospitalist Progress Note ---
Date of Service December 12, 2022 Assessment & Plan (1) Perirectal abscess: Plan: S/p two separate incision and drainage procedures for perirectal abscess, 11/25 and 12/01 Leukocytosis improved since admission and second I+D E. coli and Bacteroides isolated from the aspirate. Blood cultures negative Continue Bactrim/Flagyl per surgery until 12/15/22 (total of 2 weeks of Abx) with local wound care and dressing changes every 2 days Follow-up with surgery 2 weeks postop Colonoscopy will be done as an outpatient at a later date. Appreciate gastroenterology consultation and recommendations during this admission Continue on lidocaine jelly prn for pain at surgical site Percocet and Tylenol as well prn pain; Daily Dilaudid IV dose as needed for pre- physical therapy Awaiting discharge to skilled facility for continued wound care management (unable to care for wound at home due to bilateral BKA) and physical therapy; appreciate PT and OT evaluations today 12/12 and case management assistance (2) Rectal bleeding: Plan: Most likely secondary to perirectal abscess, resolved since admission and Hgb continues to be stable (11.6 on 12/11) (3) Type I diabetes mellitus, uncontrolled: Plan: On insulin therapy per pump in the outpatient setting, however with suspected pump failure earlier this admission We will resume pump this evening 12/12, last Lantus dose 12/11, pharmacy aware and will monitor blood sugars (4) Gastric wall thickening: Plan: Mild nonspecific thickening of gastric antrum per CT abd. GI consultation appreciated this admission. EGD will be done as an outpatient Continue PPI (5) Stage III pressure ulcer: Plan: Sacral decubitus area. Routine wound care as above, q2day dressing changes, to be continued at skilled facility on discharge (6) COPD (chronic obstructive pulmonary disease): Plan: Stable, patient not requiring supplemental oxygen (7) CAD (coronary artery disease): Plan: s/p CABGx1. Stable. Continue home Plavix and baby ASA, atorvastatin and metoprolol (8) Aortic stenosis: Plan: s/p aortic valve replacement in 2016 ([facility]) (9) Hypothyroidism: Plan: Continue home levothyroxine 175mcg Most recent TSH slightly low at 0.176, follow-up with PCP (10) Hypertension: Plan: Chlorthalidone discontinued this admission due to hyperkalemia and low normal BP, BP within goal for age and K 3.8, not to resume on discharge, follow-up with potassium and hypertension with PCP (11) Dyslipidemia: Plan: Continue home atorvastatin and ezetimibe (12) Constipation: Plan: Patient on bowel regimen at home, and given patient is requiring opiate pain medications at times for turns and with position changes will continue that bowel regimen; milk of magnesia, MiraLAX, Colace Patient with BM yesterday and today Plan DVT proph-Lovenox Dispo-awaiting SNF placement anticipate possible discharge ~Monday if authorized by insurance Admission and Anticipated Discharge Date Admission Date: November 25, 2022 Subjective Patient without any acute events overnight, does not endorse having a bowel movement overnight and it being more his normal. Denies any chest pain or trouble breathing. Did work with physical therapy today, somewhat difficult due to his BKA and some pain at his bottom, but no lightheadedness with standing. Review of Systems Review of Systems: All systems reviewed & are unremarkable except as noted in Subjective Physical Exam Constitutional: WD/WN, vitals as above Respiratory: normal respiratory effort, lungs clear to auscultation Cardiovascular: RRR, no murmur, no edema Gastrointestinal (Abdomen): normal bowel sounds, soft, nontender, no hepatosplenomegaly Skin: no rashes, warm and dry Psychiatric: A+Ox3, euthymic affect Results & Data Results & Data Vital Signs (Past 12 Hours) Vital Signs Temp Pulse Resp BP Pulse Ox O2 Del Method 12/12/22 06:59 36.8 C 76 16 117/69 95 Room Air 12/11/22 21:35 36.7 C 78 18 119/71 96 Room Air PG Care Time/CCT Total # of Minutes Spent Total Time Spent with Patient: Total time spent is greater than 50% in coordination of care (as documented) at patient's floor/unit and/or counseling patient: Coding Level of Care Code 19618 SUB INP/OBS CARE 2/35MIN Diagnoses Perirectal abscess K61.1 Rectal bleeding K62.5 Type I diabetes mellitus, uncontrolled Gastric wall thickening K31.89 Stage III pressure ulcer L89.93 COPD (chronic obstructive pulmonary disease) J44.9 CAD (coronary artery disease) I25.10 Associated angina: without angina Coronary Disease-Associated Artery/Lesion type: [place] artery [place] vs. transplanted heart: [place] heart Aortic stenosis I35.0 Hypothyroidism E03.9 Hypothyroidism type: unspecified Hypertension I10 Hypertension type: unspecified Dyslipidemia E78.5 Constipation K59.00 (7) CAD (coronary artery disease) Associated angina: without angina Coronary Disease-Associated Artery/Lesion type: [place] artery [place] vs. transplanted heart: [place] heart Qualified Code(s): I25.10 - Atherosclerotic heart disease of [place] coronary artery without angina pectoris (9) Hypothyroidism Hypothyroidism type: unspecified Qualified Code(s): E03.9 - Hypothyroidism, unspecified (10) Hypertension Hypertension type: unspecified Qualified Code(s): I10 - Essential (primary) hypertension
[2022-12-12] MEDS: ONDANSETRON INJ 2 MG/ML 2 ML VIAL IV PRN (09:12)
[2022-12-12] MEDS: CLOPIDOGREL BISULFATE 75 MG TAB PO SCH (09:16)
[2022-12-12] MEDS: SULFAMETHOXAZOLE/TRIMETHOPRIM DS 800/160MG TAB PO SCH ×2 (09:16→15:03)
[2022-12-12] MEDS: MAGNESIUM OXIDE 400 MG TAB PO SCH (09:16)
[2022-12-12] MEDS: FOLIC ACID 1 MG TAB PO SCH (09:16)
[2022-12-12] MEDS: PANTOprazole 40 MG TAB PO SCH (09:16)
[2022-12-12] MEDS: ADVANCED PROBIOTIC 1250 MG CAPSULE PO SCH (09:16)
[2022-12-12] MEDS: CALCITRIOL 0.25 MCG CAPSULE PO SCH (09:16)
[2022-12-12] MEDS: FERROUS SULFATE 325 MG TAB PO SCH ×2 (09:16→22:10)
[2022-12-12] MEDS: metroNIDAZOLE 500 MG TAB PO SCH ×3 (09:17→22:10)
[2022-12-12] MEDS: DOCUSATE SODIUM 100 MG CAP PO SCH (09:17)
[2022-12-12] MEDS: POLYETHYLENE (MIRALAX) 17 GM PACK PO SCH (09:17)
[2022-12-12] MEDS: EZETIMIBE 10 MG TABLET PO SCH (09:17)
[2022-12-12] MEDS: MENTHOL-ZINC OXIDE 360 APPLN/120 GM TUBE EXT SCH ×3 (09:18→22:12)
[2022-12-12] MEDS: BUTT PASTE (ZINC OXIDE 16%) 171 APPLN/57 GM JAR EXT SCH ×3 (09:20→22:12)
[2022-12-12] MEDS: INSULIN ASPART PER UNIT CHARGE SC SCH ×3 (09:34→17:43)
[2022-12-12] MEDS: METOPROLOL TARTRATE 25 MG TAB PO SCH ×2 (10:23→22:09)
[2022-12-12] MEDS: ASPIRIN 81 MG ECTAB PO SCH (12:59)
--- NOTE | 2022-12-12 14:29 | Pharmacy Report ---
Pharmacy Glycemic Short Note 2 - Date of Service December 12, 2022 - Glycemic Short BSG Results (Last 24 hours): 12/11/22 12/11/22 12/12/22 16:57 20:56 08:16 POC Glucose 154 H 170 H 114 H 12/12/22 12:02 POC Glucose 209 H OUTPATIENT ANTIDIABETIC REGIMEN: * Novolog pump 1.5 units/hr, CF 25, CR 8 ASSESSMENT: 12/12 * Patient received 64 units of insulin yesterday of which 35 were basal * Fasting blood glucose was in goal range, no adjustments to basal regimen * Novolog parameters tightened due to elevated prandial BSGs * Patient to switch back to insulin pump this evening to be managed by patient. Orders to transition entered 12/09 * 67 year old type 1 diabetic here for perirectal abscess. BSGs trending up yesterday with insulin pump and concerns for pump failure. Pump taken off last night and transitioned to SQ insulin * Fasting BSG 115 mg/dL - received only 30 units of basal last evening. Based upon insulin pump, basal closer to 35 units - will increase dose today to reflect pump * DM educator in to evaluate pump and reports pump working fine. She feels that BSGs increased yesterday due to poor absorption/bad site. Patient okay with trialing SQ insulin for now and over weekend. He would however like to be put back on pump if BSGs become uncontrollable * DM educator will be here on Monday over the weekend, could re-evaluate to see if pump can be put back on PLAN FOR INPATIENT GLYCEMIC CONTROL: * Hold outpatient oral diabetes medications * Basal insulin * Lantus 35 units at dinner, switching to insulin pump this evening @ 2099 to be managed by patient * Bolus insulin * NovoLog per scale ACHS or Q6hrs while NPO, switching to insulin pump this evening @ 2100 to be managed by patient * Goal Range: Low 110 mg/dL - High 140 mg/dL * Correction Factor: 20 mg/dL/unit * Nutritional / Prandial insulin per carb ratio of 1 unit per 6 grams CHO consumed
[2022-12-12] MEDS: ENOXAPARIN INJ 40 MG/0.4 ML SYR SQ SCH (17:48)
[2022-12-12] MEDS: ATORVASTATIN 40 MG TAB PO SCH (22:10)
[2022-12-13] MEDS: ONDANSETRON INJ 2 MG/ML 2 ML VIAL IV PRN (01:34)
[2022-12-13] MEDS: INSULIN, Rapid-Acting PUMP SCH ×5 (03:17→21:18)
[2022-12-13] MEDS ORDERED: HYDROmorphone INJ 0.5 MG/0.5 ML SYR IV STA (04:53)
[2022-12-13] MEDS: LEVOTHYROXINE SODIUM 175 MCG TABLET PO SCH (05:46)
[2022-12-13] MEDS: MAGNESIUM OXIDE 400 MG TAB PO SCH (09:09)
[2022-12-13] MEDS: POLYETHYLENE (MIRALAX) 17 GM PACK PO SCH (09:10)
[2022-12-13] MEDS: CALCITRIOL 0.25 MCG CAPSULE PO SCH (09:10)
[2022-12-13] MEDS: DOCUSATE SODIUM 100 MG CAP PO SCH (09:10)
[2022-12-13] MEDS: ADVANCED PROBIOTIC 1250 MG CAPSULE PO SCH (09:11)
[2022-12-13] MEDS: EZETIMIBE 10 MG TABLET PO SCH (09:11)
[2022-12-13] MEDS: ASPIRIN 81 MG ECTAB PO SCH (09:11)
[2022-12-13] MEDS: PANTOprazole 40 MG TAB PO SCH (09:11)
[2022-12-13] MEDS: FOLIC ACID 1 MG TAB PO SCH (09:11)
[2022-12-13] MEDS: metroNIDAZOLE 500 MG TAB PO SCH ×3 (09:12→20:17)
[2022-12-13] MEDS: SULFAMETHOXAZOLE/TRIMETHOPRIM DS 800/160MG TAB PO SCH ×2 (09:12→20:17)
[2022-12-13] MEDS: METOPROLOL TARTRATE 25 MG TAB PO SCH ×2 (09:12→20:16)
[2022-12-13] MEDS: CLOPIDOGREL BISULFATE 75 MG TAB PO SCH (09:12)
[2022-12-13] MEDS: FERROUS SULFATE 325 MG TAB PO SCH ×2 (09:12→20:18)
[2022-12-13] MEDS: MENTHOL-ZINC OXIDE 360 APPLN/120 GM TUBE EXT SCH ×3 (09:14→20:15)
[2022-12-13] MEDS: BUTT PASTE (ZINC OXIDE 16%) 171 APPLN/57 GM JAR EXT SCH ×3 (09:14→20:16)
--- NOTE | 2022-12-13 09:30 | Pharmacy Report ---
Pharmacy Glycemic Sign Off Nt - Date of Service December 13, 2022 - Assessment & Plan ASSESSMENT: * Pharmacy was consulted by Dr Garcia on 12/08 for glycemic control and to write orders per [facility] inpatient glycemic control protocol. * Major changes made by pharmacy to antidiabetic regimen include: * transitioned off rapid acting insulin pump to SQ regimen * basal insulin regimen adjusted to 35 units of Lantus at bedtime * Novolog adjusted to the following parameters Goal range = 110-140 mg/dl CF = 20 mg/dl/unit CR = 1 unit for ever 6 g CHO consumed * transitioned back onto insulin pump last evening * Patient has been receiving/requiring 60-70 units of insulin per day for adequate glycemic control * BSGs ranging 80- 409 mg/dl this visit, 80-242 mg/dl last 48 hours * Regimen has only required minor adjustments over the past 48hrs to achieve this level of control * Do not anticipate further changes in patient status that would quickly deteriorate glycemic control (i.e. patient to be NPO for upcoming procedure, steroids tapering, starting tube feedings, etc). * Please see recommendations for outpatient antidiabetic regimen below. PLAN FOR INPATIENT GLYCEMIC CONTROL: No changes needed to current regimen. * Continue on patient managed rapid acting insulin pump * Pharmacy is signing off of glycemic consult and will no longer be making adjustments to inpatient regimen. Please feel free to re-consult if needed. Thank you.
[2022-12-13] MEDS: oxyCODONE/ACETAMINOPHEN 5mg/325mg TAB PO PRN (11:57)
[2022-12-13] MEDS ORDERED: BELLADONNA/OPIUM SUPP 60 MG SUPP PR PRN (15:02)
--- NOTE | 2022-12-13 15:34 | Hospitalist Progress Note ---
Date of Service December 13, 2022 Assessment & Plan (1) Perirectal abscess: Plan: S/p two separate incision and drainage procedures for perirectal abscess, 11/25 and 12/01 Leukocytosis improved since admission and second I+D E. coli and Bacteroides isolated from the aspirate. Blood cultures negative Continue Bactrim/Flagyl per surgery until 12/15/22 (total of 2 weeks of Abx) with local wound care and dressing changes every 2 days Follow-up with surgery 2 weeks postop Colonoscopy to be done as an outpatient at a later date. 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 home due to bilateral BKA) and physical therapy; appreciate PT and OT evaluations 12/12 and case management assistance, awaiting insurance approval (2) Rectal bleeding: Plan: Most likely secondary to perirectal abscess, resolved since admission and Hgb continues to be stable (11.6 on 12/11) (3) Type I diabetes mellitus, uncontrolled: Plan: On insulin therapy per pump in the outpatient setting, however with suspected pump failure earlier this admission Resumed pump evening of 12/12 without issues, continue (4) Gastric wall thickening: Plan: Mild nonspecific thickening of gastric antrum per CT abd. GI consultation appreciated this admission. EGD will be done as an outpatient Continue PPI (5) Stage III pressure ulcer: Plan: Sacral decubitus area. Routine wound care as above, q2day dressing changes, to be continued at skilled facility on discharge (6) COPD (chronic obstructive pulmonary disease): Plan: Stable, patient not requiring supplemental oxygen (7) CAD (coronary artery disease): Plan: s/p CABGx1. Stable. Continue home Plavix and baby ASA, atorvastatin and metoprolol (8) Aortic stenosis: Plan: s/p aortic valve replacement in 2016 ([facility] [place]) (9) Hypothyroidism: Plan: Continue home levothyroxine 175mcg Most recent TSH slightly low at 0.176, follow-up with PCP (10) Hypertension: Plan: Chlorthalidone discontinued this admission due to hyperkalemia and low normal BP; BP within goal for age and K normal, not to resume on discharge, follow-up of potassium and hypertension with PCP (11) Dyslipidemia: Plan: Continue home atorvastatin and ezetimibe (12) Constipation: Plan: Patient on bowel regimen at home, and given patient is requiring opiate pain medications at times for turns and with position changes will continue bowel regimen; milk of magnesia, MiraLAX, Colace Patient with BM yesterday and today Has a lot of fear around BMs due to wound in that area, and rectal pressure and pain Plan DVT proph-Lovenox Dispo-awaiting SNF placement anticipate possible discharge ~Monday Admission and Anticipated Discharge Date Admission Date: November 25, 2022 Subjective Patient without any acute events overnight. He reports some pain in his rectum area due to spasm. No other complaints today. Review of Systems Review of Systems: All systems reviewed & are unremarkable except as noted in Subjective Physical Exam Constitutional: WD/WN, vitals as above Respiratory: normal respiratory effort, lungs clear to auscultation Cardiovascular: RRR, no murmur, no edema Gastrointestinal (Abdomen): normal bowel sounds, soft, nontender, no hepatosplenomegaly Skin: no rashes, warm and dry Psychiatric: A+Ox3, euthymic affect Results & Data Results & Data Vital Signs (Past 12 Hours) Vital Signs Temp Pulse Resp BP Pulse Ox O2 Del Method 12/13/22 15:26 36.9 C 71 20 123/58 L 93 Room Air 12/13/22 07:37 37 C 77 21 127/72 93 Room Air PG Care Time/CCT Total # of Minutes Spent Total Time Spent with Patient: Total time spent is greater than 50% in coordination of care (as documented) at patient's floor/unit and/or counseling patient: Coding Level of Care Code 91890 SUB INP/OBS CARE 10/05MIN Diagnoses Perirectal abscess K61.1 Rectal bleeding K62.5 Type I diabetes mellitus, uncontrolled Gastric wall thickening K31.89 Stage III pressure ulcer L89.93 COPD (chronic obstructive pulmonary disease) J44.9 CAD (coronary artery disease) I25.10 Associated angina: without angina Coronary Disease-Associated Artery/Lesion type: hoh artery [place] vs. transplanted heart: hoh heart Aortic stenosis I35.0 Hypothyroidism E03.9 Hypothyroidism type: unspecified Hypertension I10 Hypertension type: unspecified Dyslipidemia E78.5 Constipation K59.00 (7) CAD (coronary artery disease) Associated angina: without angina Coronary Disease-Associated Artery/Lesion type: hoh artery [place] vs. transplanted heart: hoh heart Qualified Code(s): I25.10 - Atherosclerotic heart disease of hoh coronary artery without angina pectoris (9) Hypothyroidism Hypothyroidism type: unspecified Qualified Code(s): E03.9 - Hypothyroidism, unspecified (10) Hypertension Hypertension type: unspecified Qualified Code(s): I10 - Essential (primary) hypertension
[2022-12-13] MEDS ORDERED: LORazepam 2 MG/1 ML VIAL IV STA (15:49)
[2022-12-13] MEDS ORDERED: LORazepam 1 MG TAB PO STA (16:00)
[2022-12-13] MEDS: ENOXAPARIN INJ 40 MG/0.4 ML SYR SQ SCH (18:07)
[2022-12-13] MEDS ORDERED: CYCLOBENZAPRINE HCL 10 MG TAB PO STA (19:52)
[2022-12-13] MEDS: ATORVASTATIN 40 MG TAB PO SCH (20:17)
[2022-12-13] MEDS: HYDROmorphone INJ 0.5 MG/0.5 ML SYR IV PRN (22:00)
[2022-12-14] MEDS: LEVOTHYROXINE SODIUM 175 MCG TABLET PO SCH (06:16)
[2022-12-14] MEDS: CARBOHYDRATES FOR HYPOGLYCEMIA PO PRN (08:12)
[2022-12-14] MEDS: ADVANCED PROBIOTIC 1250 MG CAPSULE PO SCH (08:13)
[2022-12-14] MEDS: SULFAMETHOXAZOLE/TRIMETHOPRIM DS 800/160MG TAB PO SCH (08:13)
[2022-12-14] MEDS: FOLIC ACID 1 MG TAB PO SCH (08:14)
[2022-12-14] MEDS: PANTOprazole 40 MG TAB PO SCH (08:14)
[2022-12-14] MEDS: FERROUS SULFATE 325 MG TAB PO SCH (08:14)
[2022-12-14] MEDS: CALCITRIOL 0.25 MCG CAPSULE PO SCH (08:14)
[2022-12-14] MEDS: ASPIRIN 81 MG ECTAB PO SCH (08:14)
[2022-12-14] MEDS: CLOPIDOGREL BISULFATE 75 MG TAB PO SCH (08:14)
[2022-12-14] MEDS: MAGNESIUM OXIDE 400 MG TAB PO SCH (08:14)
[2022-12-14] MEDS: METOPROLOL TARTRATE 25 MG TAB PO SCH (08:15)
[2022-12-14] MEDS: POLYETHYLENE (MIRALAX) 17 GM PACK PO SCH (08:15)
[2022-12-14] MEDS: EZETIMIBE 10 MG TABLET PO SCH (08:15)
[2022-12-14] MEDS: DOCUSATE SODIUM 100 MG CAP PO SCH (08:15)
[2022-12-14] MEDS: metroNIDAZOLE 500 MG TAB PO SCH ×2 (08:15→13:27)
[2022-12-14] MEDS: BUTT PASTE (ZINC OXIDE 16%) 171 APPLN/57 GM JAR EXT SCH ×2 (08:20→13:28)
[2022-12-14] MEDS: MENTHOL-ZINC OXIDE 360 APPLN/120 GM TUBE EXT SCH ×2 (08:20→13:28)
[2022-12-14] MEDS: HYDROmorphone INJ 0.5 MG/0.5 ML SYR IV PRN (09:49)
[2022-12-14] MEDS: INSULIN, Rapid-Acting PUMP SCH ×2 (10:23→12:48)
--- NOTE | 2022-12-14 12:09 | Discharge Summary ---
Discharge Summary Date of Service December 14, 2022 Admission HPI Per Admitting Provider 67 y/o male w/ DM1 on insulin pump, PAD, COPD, CKD, CAD, hypothyroidism, HTN, HLD, right BKA, and left BKA who presents via EMS w/ exacerbation of bloody stool which he has intermittently had for 2-3 weeks. He has had intermittent rectal pain. There is pain w/ defecation. He has had mild staining of underwear with bright red blood. Today, he had larger amount of blood so he called EMS. He had diarrhea today only. Denies fever, chills, headache, weakness, chest pain, or shortness of breath. He denies history of similar. 10/09/21 colonoscopy was normal w/ 3 year repeat recommended. ED course: NSS 1L. Margarito. Gen surg consulted and brought patient to ED for I&D of perirectal abscess. Home insulin pump was continued w/ postop bsg in the 90s. Admission Exam Per Admitting Provider General: Grossly A&O. NAD. Cooperative. Conversational. Not drowsy. Seen shortly after return from OR. HEENT: Atraumatic, normocephalic. EOMI Pulm: CTAB anteriorly. -wheezes, -rales, -rhonchi. No respiratory distress. Cardiac: RRR, -mrg. No LE edema. Abdominal: Nontender, nondistended, soft. Integ: Right BKA site w/ small closed scab wound. No surrounding erythema. L AKA site has bandage pad applied, clean/dry/intact. Principal Dx & Hospital Course #1 = Principal Diagnosis (1) Perirectal abscess: S/p two separate incision and drainage procedures for perirectal abscess, 11/25 and 12/01 Leukocytosis improved since admission and second I+D E. coli and Bacteroides isolated from the aspirate. Blood cultures negative Continue Bactrim/Flagyl per surgery until 12/15/22 (total of 2 weeks of Abx) with local wound care and dressing changes every 2 days Follow-up with surgery 2 weeks postop Colonoscopy to be done as an outpatient at a later date. Appreciate gastroenterology consultation and recommendations during this admission Continue on lidocaine jelly prn for pain at surgical site, Percocet and Tylenol as well prn pain; Daily Dilaudid IV dose as needed for pre-physical therapy and pre-wound changes given significant pain (2) Rectal bleeding: Most likely secondary to perirectal abscess, resolved since admission and Hgb continues to be stable (11.6 on 12/11) (3) Type I diabetes mellitus, uncontrolled: On insulin therapy per pump in the outpatient setting, however with suspected pump failure earlier this admission Resumed pump evening of 12/12 without issues, continue this with follow-up by family doctor (4) Gastric wall thickening: Mild nonspecific thickening of gastric antrum per CT abd. GI consultation appreciated this admission. EGD will be done as an outpatient Continue PPI (5) Stage III pressure ulcer: Sacral decubitus area. Routine wound care as above, q2day dressing changes, to be continued at skilled facility on discharge (6) COPD (chronic obstructive pulmonary disease): Stable, patient not requiring supplemental oxygen (7) CAD (coronary artery disease): s/p CABGx1. Stable. Continue home Plavix and baby ASA, atorvastatin and metoprolol (8) Aortic stenosis: s/p aortic valve replacement in 2016 ([facility] [place]) (9) Hypothyroidism: Continue home levothyroxine 175mcg Most recent TSH slightly low at 0.176, follow-up with PCP (10) Hypertension: Chlorthalidone discontinued this admission due to hyperkalemia and low normal BP; defer reinitiation to PCP (11) Dyslipidemia: Continue home atorvastatin and ezetimibe (12) Constipation: Patient on bowel regimen at home, and given patient is requiring opiate pain medications at times for turns and with position changes will continue bowel regimen; milk of magnesia, MiraLAX, Colace Has a lot of fear around BMs due to wound in that area, and rectal pressure and pain Discharge Exam Constitutional WD/WN, vitals as above Respiratory normal respiratory effort, lungs clear to auscultation Cardiovascular RRR, no murmur, no edema Psychiatric A+Ox3, euthymic affect Updated Medication List Medication Instructions Recorded Confirmed Type aspirin 81 mg tablet,delayed 81 mg PO QAM 05/04/21 11/25/22 History release (Mohit Low Dose Aspirin) ferrous sulfate 325 mg (65 mg 325 mg PO BID #60 tabs 08/03/21 11/25/22 Rx iron) tablet,delayed release lactobacillus combination no.9 4 4,000 mmu cells PO QAM 08/04/21 11/25/22 History billion cell capsule (Adult 50 Plus Probiotic) atorvastatin 80 mg tablet (Lipitor) 80 mg PO HS #90 tabs 11/15/21 11/25/22 Rx docusate sodium 100 mg capsule 100 mg PO DIRECTED PRN 01/04/22 11/25/22 History (Colace) Constipation chlorthalidone 25 mg tablet 25 mg PO QAM #90 tabs 05/20/22 11/25/22 Rx folic acid 1 mg tablet 1 mg PO QAM #30 tabs 06/23/22 11/25/22 Rx levothyroxine 175 mcg tablet 175 mcg PO QAM #90 tabs 07/01/22 11/25/22 Rx (Synthroid) magnesium oxide 400 mg (241.3 mg 400 mg PO QAM #30 tabs 07/07/22 11/25/22 Rx magnesium) tablet acetaminophen 500 mg tablet 1,000 mg PO Q8 PRN Pain 07/18/22 11/25/22 History (Tylenol Extra Strength) nystatin 100,000 unit/gram topical 1 applic topical BID PRN Skin 07/18/22 11/25/22 History powder Irritation oxycodone 5 mg tablet 5 - 10 mg PO Q4 PRN pain #30 tabs 07/22/22 11/25/22 Rx tramadol 50 mg tablet 50 - 100 mg PO Q6H PRN pain #20 07/22/22 11/25/22 Rx tabs metoprolol tartrate 25 mg tablet 12.5 mg PO BID #90 tabs 08/08/22 11/25/22 Rx calcitriol 0.25 mcg capsule 0.25 mcg PO QAM #30 caps 08/19/22 11/25/22 Rx (Rocaltrol) clopidogrel 75 mg tablet (Plavix) 75 mg PO QAM #30 tabs 08/19/22 11/25/22 Rx polyethylene glycol 3350 17 17 g PO DAILY 08/23/22 11/25/22 History gram/dose oral powder (Miralax) ezetimibe 10 mg tablet 10 mg PO DAILY #30 tabs 11/14/22 11/25/22 Rx insulin aspart U-100 100 unit/mL 0 unit continuous subcutaneous 11/25/22 11/25/22 History subcutaneous solution (Novolog infusion DAILY U-100 Insulin aspart) menthol 0.44 %-zinc oxide 20.6 % 1 applic EXT TID 11/25/22 11/25/22 History topical ointment (Calmoseptine) zinc oxide 16 % topical ointment 1 applic EXT TID 11/25/22 11/25/22 History (Boudreauxs Butt Paste) magnesium hydroxide 400 mg/5 mL 30 ml PO Q6H PRN #0 mL 12/12/22 Rx oral suspension (Milk of Magnesia) metronidazole 500 mg tablet 500 mg PO TID 3 days #9 tabs 12/12/22 Rx pantoprazole 40 mg tablet,delayed 40 mg PO DAILY #90 tabs 12/12/22 11/25/22 Rx release (Protonix) sulfamethoxazole 800 1 tab PO Q12 3 days #6 tabs 12/12/22 Rx mg-trimethoprim 160 mg tablet (Bactrim DS) Hospital Stay Data Consultations 11/25/22 18:03 Consult General Surgery Stat 11/25/22 19:54 ED Decision to Admit Stat 11/27/22 09:59 Consult Gastroenterology Routine Procedures Performed Operation Date: 12/01/22 10:25 Actual Procedures p Incision and Drainage of Perirectal Abscess(Not Applicable) - Tj Sharp MD Diagnostic Imagining Performed 11/25/22 16:00 CT abd pelvis IV con only Stat 11/30/22 10:22 CT Abd and Pelvis [CT abd pelvis IV con only] Routine Pending Results Patient Have Any Pending Studies at Discharge: No Discharge Instructions Given to Patient (Per Discharging Provider) Perirectal abscess: S/p two separate incision and drainage procedures for perirectal abscess, 11/25 and 12/01 Leukocytosis improved since admission and second I+D E. coli and Bacteroides isolated from the aspirate. Blood cultures negative Continue Bactrim/Flagyl per surgery until 12/15/22 (total of 2 weeks of Abx) with local wound care and dressing changes every 2 days Follow-up with surgery 2 weeks postop Colonoscopy will be done as an outpatient at a later date. Appreciate gastroenterology consultation and recommendations during this admission Continue on lidocaine jelly prn for pain at surgical site Percocet 1-2 tabs and Tylenol as well prn pain, especially pre-PT and pre- dressing changes Rectal bleeding: Most likely secondary to perirectal abscess/wound, improved since admission and Hgb continues to be stable (11.6 on 12/11) Type I diabetes mellitus, uncontrolled: Patient's insulin pump, blood sugar checks ACHS Gastric wall thickening: Mild nonspecific thickening of gastric antrum per CT abd. GI consultation appreciated this admission. EGD will need to be arranged as an outpatient Continue PPI Stage III pressure ulcer: Sacral decubitus area. Routine wound care as above, q2day dressing changes, to be continued at skilled facility on discharge COPD (chronic obstructive pulmonary disease): Stable, patient not requiring supplemental oxygen CAD (coronary artery disease): s/p CABGx1. Stable. Continue home Plavix and baby ASA, atorvastatin and metoprolol Aortic stenosis: s/p aortic valve replacement in 2016 ([facility] [place]) Hypothyroidism: Continue home levothyroxine 175mcg Most recent TSH slightly low at 0.176, follow-up with PCP Hypertension: Chlorthalidone discontinued this admission due to hyperkalemia and low normal BP, BP within goal for age and K 3.8, not to resume on discharge, follow-up with potassium and hypertension with PCP BP normotensive on day of discharge Dyslipidemia: Continue home atorvastatin and ezetimibe Constipation: Milk of magnesia, MiraLAX, Colace as needed per patient preference Total Time Total Time Spent Total Time Spent (In Minutes): 30 minutes Coding Level of Care Code 55579 INP/OBS DISCH >30 MIN Diagnoses Perirectal abscess K61.1 Rectal bleeding K62.5 Type I diabetes mellitus, uncontrolled Gastric wall thickening K31.89 Stage III pressure ulcer L89.93 COPD (chronic obstructive pulmonary disease) J44.9 CAD (coronary artery disease) I25.10 Associated angina: without angina Coronary Disease-Associated Artery/Lesion type: [place] artery [place] vs. transplanted heart: [place] heart Aortic stenosis I35.0 Hypothyroidism E03.9 Hypothyroidism type: unspecified Hypertension I10 Hypertension type: unspecified Dyslipidemia E78.5 Constipation K59.00
[2022-12-14] MEDS: oxyCODONE/ACETAMINOPHEN 5mg/325mg TAB PO PRN (14:32)
== END 2022-12-14 15:47 | DRG 344 ==
LOC: ED 15:35 → OR 20:34 → 2W 22:25 → SUATTDRO 22:25 → 3N 12-06 22:00

== ENCOUNTER 2023-07-12 04:57 | Inpatient (IN) ==
[2023-07-12] MEDS ORDERED: fentaNYL citrate PF 100 MCG/2 ML VIAL IV STA ×2 (05:13→06:53)
--- NOTE | 2023-07-12 05:16 | Emergency Department Note ---
Impression & Plan Acute cholecystitis ED Provider Note HISTORY OF PRESENT ILLNESS: Patient is a 68-year-old male presenting with right flank pain and right upper abdominal pain. Patient states that he was awoken from sleep today with a pressure and burning sensation in his right flank. He has no history of kidney stones. Denies any dysuria or hematuria. Denies any nausea or vomiting. Locates the right upper quadrant with radiation into the flank. Denies any recent fevers. ROS: as above PHYSICAL EXAM: Constitutional: Patient appears in no acute distress. HENT: Head: Normocephalic and atraumatic. Eyes: EOMI, PERRL Mouth/Throat: Mucous membranes moist. Neck: Trachea midline. Neck supple. Cardiovascular: RRR, No murmurs, rubs or gallops. Intact distal pulses. Pulmonary/Chest: No respiratory distress. Breath sounds clear and equal bilaterally. No wheezes or rales. Abdominal: Abdomen soft, no rebound or guarding. Colostomy in place in left abdomen. RUQ TTP. Musculoskeletal: Patient has a right below the knee amputation. Left [id number] amputation. Skin: Warm and dry. Psychiatric: Appropriate mood and affect for situation. Neurological: Alert and keenly responsive. CN II-XII grossly intact, moving all extremities equally and fully. MDM: - Vitals signs showed hypertension. - History obtained via patient. Patient presents with right upper quadrant abdominal pain and right flank pain. Patient states he woke from sleep today with a pressure and burning sensation in his right upper quadrant that radiated into his right flank. Denies any fevers. Denies any dysuria or hematuria. Denies any nausea or vomiting. - Chronic conditions affecting care: CAD; HTN; HLD; COPD; hypothyroidism - Differential diagnoses include, but are not limited to: pyelonephritis; UTI; ureteral stone; aortic dissection; colitis; diverticulitis - Order placed for continuous cardiac monitoring. At this time, monitor showed rate of 75 bpm with normal sinus rhythm, per my interpretation. - External medical records reviewed. Primary care visit appointment dated 06/16/2023. He was admitted for pelvic floor cellulitis secondary to a perirect al abscess and had a [place] drain placed. - Laboratory workup interpreted by myself showed leukocytosis (WBC 13.81) with left shift; slight hypokalemia (K 3.3); normal procalcitonin; stable liver fun ction - CT abdomen/pelvis wo contrast showed mildly distended gallbladder with trace pericholecystic stranding and a small stone within the gallbladder neck or cystic duct, concerning for acute cholecystitis. - Patient initially given 50 mcg IV fentanyl on arrival to ER. On reassessment, he reports pain has returned and he is now nauseous. Given an additional 50 mcg IV fentanyl and 4 mg IV zofran. - UA showed evidence of infection. - IV zosyn ordered. - Discussed case wiht general surgery. Will evaluate patient. Agree with obtaining ultrasound. - US gallbladder ordered. - Discussion was had with social service worker about patient's case and need for admission - Hospitalist consulted for admission - [facility] ASSESSMENT AND PLAN: Diagnosis: acute cholecystitis Plan: admit Past Med/Surg History Medical History Above knee amputation of left lower extremity Anemia Anemia Aortic stenosis Below-knee amputation of right lower extremity CAD (coronary artery disease) Candidal diaper rash Clostridium difficile colitis Constipation COPD (chronic obstructive pulmonary disease) DVT prophylaxis Dyslipidemia Folate deficiency GERD (gastroesophageal reflux disease) History of Clostridium difficile infection History of colon polyps History of infection with vancomycin resistant Enterococcus (VRE) Hx MRSA infection Hypertension Hypothyroidism Stage III pressure ulcer Surgical wound, non healing Type I diabetes mellitus, uncontrolled Surgical History Below-knee amputation of right lower extremity H/O cataract extraction H/O endarterectomy H/O vascular surgery History of ankle surgery History of aortic valve replacement History of arterial bypass of lower extremity History of cardiac cath History of carpal tunnel release History of colonoscopy History of coronary artery bypass graft History of esophagogastroduodenoscopy (EGD) History of myringotomy History of open reduction and internal fixation (ORIF) procedure History of skin graft History of tonsillectomy History of tooth extraction History of umbilical hernia repair Hx of cystoscopy Hx of surgical procedure S/P femoral-tibial bypass S/P femoropopliteal bypass surgery S/P insertion of iliac artery stent Status post partial amputation of left foot Family History Brother Family history of diabetes mellitus Sister Family history of diabetes mellitus Mother Family history of diabetes mellitus Grandmother (Maternal) Family history of diabetes mellitus Uncle Family hx of colon cancer Colorectal cancer Father Family history of esophageal cancer Sister Family history of diabetes mellitus Other No family history of adverse response to anesthesia Denies family history of Ovarian cancer Prostate cancer Myocardial infarction Breast cancer Social History Smoking Status: Former smoker Tobacco Type: Cigarettes and Cigars Second Hand Exposure: Yes (as a child); Do You Dip or Chew Tobacco: No; Hx Alcohol Use: No Hx Substance Use: No Preferred Language: Sudanese Communication Ability: Effective Visual Impairment: No Limitations Hearing Ability: Hard of Hearing Welding Rod Coater Required: No Beliefs That Will Affect Care: None marital status: Current Living Situation: Other Current Living Situation Comment: roommate current occupational status: disabled How many Children do You have: 2 How many Children do You have Comment: family assists with care, also is part of the waiver program so the pt's roommate is able to assist with care through this program Feels Safe at Home: Yes Childhood Exposure to Second-Hand Smoke: Yes Diet: diabetic Diet Comment: Carb Counts. ([id number], roughly), protein drinks caffeine: Yes (coffee, rarely ) during the past year weight has: remained stable Dental Care, Regularly: No Seatbelt Use: always Sunscreen Use: No Gender Identity: Male Assistive Devices: Prosthesis, Walker and Wheelchair Allergies Allergies Allergy/AdvReac Type Severity Reaction Status Date / Time No Known Allergies Allergy Unknown Verified 06/19/23 09:15 Home Meds Home Medications Medication Instructions Recorded Confirmed aspirin 81 mg tablet,delayed 81 mg PO QAM 05/04/21 06/16/23 release (Mohit Low Dose Aspirin) acetaminophen 500 mg tablet 1,000 mg PO Q8 PRN Pain 07/18/22 06/16/23 (Tylenol Extra Strength) nystatin 100,000 unit/gram topical 1 applic topical BID PRN Skin 07/18/22 06/16/23 powder Irritation insulin aspart U-100 100 unit/mL 0 unit continuous subcutaneous 11/25/2206/16 subcutaneous solution (Novolog infusion DAILY U-100 Insulin aspart) menthol 0.44 %-zinc oxide 20.6 % 1 applic EXT TID 11/25/22 06/16/23 topical ointment (Calmoseptine) zinc oxide 16 % topical ointment 1 applic EXT TID 11/25/22 06/16/23 (B[place]reauxs Butt Paste) mupirocin 2 % topical ointment 1 applic topical Q12H 05/12/23 06/16/23 tramadol 50 mg tablet 50 - 100 mg PO Q6 PRN pain 05/22/23 06/16/23 Previous Rx's Medication Instructions Recorded atorvastatin 80 mg tablet (Lipitor) 80 mg PO HS #90 tabs 11/15/21 folic acid 1 mg tablet 1 mg PO QAM #30 tabs 06/23/22 levothyroxine 175 mcg tablet 175 mcg PO QAM #90 tabs 07/01/22 (Synthroid) magnesium oxide 400 mg (241.3 mg 400 mg PO QAM #30 tabs 07/07/22 magnesium) tablet metoprolol tartrate 25 mg tablet 12.5 mg PO BID #90 tabs 08/08/22 calcitriol 0.25 mcg capsule 0.25 mcg PO QAM #30 caps 08/19/22 (Rocaltrol) clopidogrel 75 mg tablet (Plavix) 75 mg PO QAM #30 tabs 08/19/22 pantoprazole 40 mg tablet,delayed 40 mg PO DAILY #90 tabs 12/12/22 release (Protonix) Replacement Brakes for Manual #1 ea 05/12/23 Wheelchair trazodone 100 mg tablet 100 mg PO HS #30 tabs 05/17/23 tamsulosin 0.4 mg capsule 0.4 mg PO DAILY #90 caps 05/18/23 cyclobenzaprine 10 mg tablet 10 mg PO Q8H PRN Muscle Spasm #90 06/16/23 tabs Mattress (Air or other) #1 ea 06/19/23 Wheelchair (Manual) (Manual #1 ea 06/19/23 Wheelchair) ferrous sulfate 325 mg (65 mg 325 mg PO BID #60 tabs 06/19/23 iron) tablet,delayed release chlorthalidone 25 mg tablet 25 mg PO QAM #90 tabs 07/03/23 ezetimibe 10 mg tablet 10 mg PO DAILY #30 tabs 07/10/23 Results & Data (ED) Vital Signs Vital Signs - 24 hr 07/12/23 05:18 07/12/23 05:18 07/12/23 05:23 Temperature 36.5 C 36.5 C Temperature Source Oral Oral Pulse Rate 78 79 Pulse Rate [Apical] 78 Pulse Rhythm Regular Pulse Rhythm [Apical] Regular Pulse Strength Normal Pulse Strength [Apical] Normal Respiratory Rate 16 16 Respiratory Effort / Characteristics Non-Labored Non-Labored Respiratory Depth Normal Normal Respiratory Pattern Regular Blood Pressure 127/87 Blood Pressure [Right Arm] 127/87 Blood Pressure Mean 100 Blood Pressure Mean [Right Arm] 100 Pulse Oximetry 98 98 Oxygen Delivery Method Room Air Room Air Sepsis Recent Fever Within 48 Hours No Sepsis New/Unexplained Change in Mental Status No Sepsis Action Taken by Nursing No Action Required 07/12/23 05:52 07/12/23 06:00 07/12/23 06:30 Temperature Temperature Source Pulse Rate 75 71 74 Pulse Rate [Apical] Pulse Rhythm Pulse Rhythm [Apical] Pulse Strength Pulse Strength [Apical] Respiratory Rate 11 L 16 24 Respiratory Effort / Characteristics Respiratory Depth Respiratory Pattern Blood Pressure 136/83 131/77 141/77 H Blood Pressure [Right Arm] Blood Pressure Mean 100 95 98 Blood Pressure Mean [Right Arm] Pulse Oximetry 95 93 95 Oxygen Delivery Method Sepsis Recent Fever Within 48 Hours Sepsis New/Unexplained Change in Mental Status Sepsis Action Taken by Nursing Laboratory Data 07/12/23 05:15 07/12/23 05:15 Lab Results 07/12/23 07/12/23 07/12/23 Range/Units 05:15 05:15 05:15 WBC 13.81 H (4.8-10.8) K/ul RBC 5.00 (4.70-6.10) M/uL Hgb 13.7 L (14.0-18.0) g/dl Hct 41.8 L (42.0-52.0) % MCV 83.6 (80.0-100.0) fL MCH 27.4 (25.0-34.0) pg MCHC 32.8 (32.0-36.0) g/dL RDW Std Deviation 42.2 (36.4-46.3) fL RDW Coeff of Chan 13.9 (11.5-14.5) % Plt Count 395 (130-400) K/uL MPV 9.3 L (9.4-12.4) fL Immature Gran % (Auto) 0.2 % Neut % (Auto) 73.2 % Lymph % (Auto) 14.3 % [place] % (Auto) 8.0 % Eos % (Auto) 3.5 % Baso % (Auto) 0.8 % Neut # (Auto) 10.11 H (1.40-6.50) K/uL Lymph # (Auto) 1.98 (1.20-3.40) K/uL [place] # (Auto) 1.10 H (0.11-0.59) K/uL Eos # (Auto) 0.48 (0.00-0.50) K/uL Baso # (Auto) 0.11 (0.00-0.20) K/uL Immature Gran # (Auto) 0.03 (0.01-0.20) K/uL Sodium 138 (136-145) mmol/L Potassium 3.3 L (3.5-5.1) mmol/L Chloride 96 L (98-107) mmol/L Carbon Dioxide 32 (21-32) mmol/L Anion Gap 10 (3-11) BUN 13 (6-23) mg/dl Creatinine 0.99 (0.6-1.4) mg/dl Est Cr Clr Drug Dosing 71.0 ml/min Est GFR ( Amer) 91.6 ml/min Est GFR (Non-Af Amer) 79.0 ml/min BUN/Creatinine Ratio 13.1 (10-20) Glucose 130 H (70-99(Fasting)) mg/dl Calcium 9.6 (8.6-10.3) mg/dl Total Bilirubin 0.8 (0.2-1.0) mg/dl AST 18 (13-39) U/L ALT 16 (7-52) U/L Alkaline Phosphatase 129 H (34-104) U/L Total Protein 7.8 (6.0-8.3) gm/dl Albumin 3.6 (3.4-5.0) gm/dl Globulin 4.2 H (2.5-4.0) gm/dl Albumin/Globulin Ratio 0.9 (0.9-2) Procalcitonin 0.08 (0-0.5) ng/ml Urine Color Urine Appearance (Clear) Urine pH (4.5-7.5) Ur Specific [place] (1.000-1.030) Urine Protein (Negative) Urine Glucose (UA) (Negative) Urine Ketones (Negative) Urine Blood (Negative) Urine Nitrite (Negative) Urine Bilirubin (Negative) Urine Urobilinogen (Negative) Ur Leukocyte Esterase (Negative) Urine WBC (Auto) (0-5) /hpf Urine RBC (Auto) (0-4) /hpf U Hyaline Cast (Auto) (0-5) /lpf U Epithel Cells (Auto) (0-5) /lpf Urine Bacteria (Auto) (Negative) 07/12/23 Range/Units 06:30 WBC (4.8-10.8) K/ul RBC (4.70-6.10) M/uL Hgb (14.0-18.0) g/dl Hct (42.0-52.0) % MCV (80.0-100.0) fL MCH (25.0-34.0) pg MCHC (32.0-36.0) g/dL RDW Std Deviation (36.4-46.3) fL RDW Coeff of Chan (11.5-14.5) % Plt Count (130-400) K/uL MPV (9.4-12.4) fL Immature Gran % (Auto) % Neut % (Auto) % Lymph % (Auto) % [place] % (Auto) % Eos % (Auto) % Baso % (Auto) % Neut # (Auto) (1.40-6.50) K/uL Lymph # (Auto) (1.20-3.40) K/uL [place] # (Auto) (0.11-0.59) K/uL Eos # (Auto) (0.00-0.50) K/uL Baso # (Auto) (0.00-0.20) K/uL Immature Gran # (Auto) (0.01-0.20) K/uL Sodium (136-145) mmol/L Potassium (3.5-5.1) mmol/L Chloride (98-107) mmol/L Carbon Dioxide (21-32) mmol/L Anion Gap (3-11) BUN (6-23) mg/dl Creatinine (0.6-1.4) mg/dl Est Cr Clr Drug Dosing ml/min Est GFR ( Amer) ml/min Est GFR (Non-Af Amer) ml/min BUN/Creatinine Ratio (10-20) Glucose (70-99(Fasting)) mg/dl Calcium (8.6-10.3) mg/dl Total Bilirubin (0.2-1.0) mg/dl AST (13-39) U/L ALT (7-52) U/L Alkaline Phosphatase (34-104) U/L Total Protein (6.0-8.3) gm/dl Albumin (3.4-5.0) gm/dl Globulin (2.5-4.0) gm/dl Albumin/Globulin Ratio (0.9-2) Procalcitonin (0-0.5) ng/ml Urine Color Yellow Urine Appearance Cloudy A (Clear) Urine pH 6.5 (4.5-7.5) Ur Specific [place] 1.012 (1.000-1.030) Urine Protein Negative (Negative) Urine Glucose (UA) Negative (Negative) Urine Ketones Trace H (Negative) Urine Blood Trace H (Negative) Urine Nitrite Negative (Negative) Urine Bilirubin Negative (Negative) Urine Urobilinogen Negative (Negative) Ur Leukocyte Esterase 3+ H (Negative) Urine WBC (Auto) >30 H (0-5) /hpf Urine RBC (Auto) 0-4 (0-4) /hpf U Hyaline Cast (Auto) 0 (0-5) /lpf U Epithel Cells (Auto) 5-10 H (0-5) /lpf Urine Bacteria (Auto) 1+ H (Negative) Administered Medications Discontinued Medications Fentanyl Citrate (Fentanyl Citrate Pf 100 Mcg/2 Ml Vial) 50 mcg IV NOW STA Stop: 07/12/23 05:14 Last Admin: 07/12/23 05:36 Dose: 50 mcg Documented By: ALCON Imaging Data Radiologist's Impression: Abdomen/Pelvis CT 07/12/23 05:13 CT OF THE ABDOMEN AND PELVIS WITHOUT CONTRAST CLINICAL HISTORY: Right flank pain. COMPARISON STUDY: CT of the abdomen and pelvis May 22, 2023. TECHNIQUE: Axial images of the abdomen and pelvis were obtained without IV contrast. Images were reviewed in the axial, sagittal, and coronal planes. Automated exposure control was utilized for the study. A dose lowering technique was utilized adhering to the principles of ALARA. FINDINGS: Lung bases are unremarkable. There is a prosthetic aortic valve. Extensive coronary artery calcification is incidentally noted. Subpleural right lower opacity represents atelectasis. No pneumatosis, free air or portal venous gas is present. A few small right renal calculi measure up to 2 mm. Left renal calculi measure up to 7 mm. There are no ureteral calculi. There is no hydronephrosis. Bladder wall thickening with adjacent stranding is again noted. Several bladder calculi measure up to 6 mm. Evaluation if the remainder of the abdomen and pelvis is suboptimal on this unenhanced exam. Liver, spleen and pancreas are unremarkable. There is no biliary or pancreatic ductal dilatation. The gallbladder is mildly distended and there is trace pericholecystic stranding. A small stone within the gallbladder neck or cystic duct is noted. There is extensive aortoiliac atherosclerotic plaque. No evidence for a bowel obstruction status post descending colostomy. There is persistent rectal wall thickening with perirectal stranding. This was shown on prior exam. A left perirectal drain remains in place. A small fluid and gas containing perirectal fluid collection measures approximately 2 x 1.3 cm. The drain appears to be well-positioned. There are postoperative findings within both groins. No ad ditional fluid collections are present. Bilateral adrenal nodules are unchanged from earlier exams. These are likely benign. IMPRESSION: 1. Bilateral nephrolithiasis. No ureteral calculi or hydronephrosis. 2. Mildly distended gallbladder with trace pericholecystic stranding and a small stone within the gallbladder neck or cystic duct. Acute cholecystitis cannot be excluded. A right upper quadrant ultrasound is recommended for further evaluation. 3. Left perirectal drainage catheter in place. Small left perirectal fluid collection, measuring approximately 2 x 1.3 cm. The drain is well-positioned. 4. Persistent rectal wall thickening with adjacent stranding. This favors proctitis. However, an underlying mucosal lesion cannot be excluded. 5. Bladder wall thickening, similar to prior exam. This could be correlated with urinalysis. Several bladder calculi measure up to 6 mm. 6. Status post descending colostomy. No evidence for a bowel obstruction. ACT 112: Negative or not required by law. Electronically signed by: Benji Oconnell M.D. 07/12/2023 6:47 AM Discharge Plan Visit Data Chief Complaint: Back Injury/Pain Stated Complaint: R Side Back Pain ED Provider: Divine Padron Discharge Problem: Acute cholecystitis Forms Stand Alone Forms: My [facility] Prescriptions Prescriptions: No Action atorvastatin [Lipitor] 80 mg tablet 80 mg PO HS Qty: 90 3RF folic acid 1 mg tablet 1 mg PO QAM Qty: 30 5RF Patient Comments: PT CURRENLTY NOT TAKING/WAITING FOR PHARMACY levothyroxine [Synthroid] 175 mcg tablet 175 mcg PO QAM Qty: 90 2RF metoprolol tartrate 25 mg tablet 12.5 mg PO BID Qty: 90 3RF calcitriol [Rocaltrol] 0.25 mcg capsule 0.25 mcg PO QAM Qty: 30 5RF clopidogrel [Plavix] 75 mg tablet 75 mg PO QAM Qty: 30 5RF (DME) Replacement Brakes for Manual Wheelchair See Rx Instructions .Route .MEDSUPPLY Qty: 1 0RF Rx Instructions: As directed trazodone 100 mg tablet 100 mg PO HS Qty: 30 2RF tamsulosin 0.4 mg capsule 0.4 mg PO DAILY Qty: 90 3RF ferrous sulfate 325 mg (65 mg iron) tablet,delayed release (DR/EC) 325 mg PO BID Qty: 60 5RF (DME) Manual Wheelchair Device See Rx Instructions .Route Qty: 1 0RF Rx Instructions: wheel chair repair (DME) Mattress (Air or other) Misc See Rx Instructions .Route Qty: 1 0RF Rx Instructions: Alternating pressure mattress, use daily chlorthalidone 25 mg tablet 25 mg PO QAM Qty: 90 3RF ezetimibe 10 mg tablet 10 mg PO DAILY Qty: 30 2RF cyclobenzaprine 10 mg tablet 10 mg PO Q8H PRN (Reason: Muscle Spasm) Qty: 90 3RF mupirocin 2 % ointment 1 applic topical Q12H Rx Instructions: Apply to l. scrotum area acetaminophen [Tylenol Extra Strength] 500 mg tablet 1,000 mg PO Q8 PRN (Reason: Pain) nystatin 100,000 unit/gram powder 1 applic topical BID PRN (Reason: Skin Irritation) Rx Instructions: apply to groin insulin aspart U-100 [Novolog U-100 Insulin aspart] 100 unit/mL solution 0 unit continuous subcutaneous infusion DAILY Rx Instructions: PT UNSURE OF BASAL RATE/DOSE VARIES DEPENDING ON CARB INTAKE. Stephanie Butt Paste 16 % ointment 1 applic EXT TID menthol-zinc oxide [Calmoseptine] 0.44-20.6 % ointment 1 applic EXT TID pantoprazole [Protonix] 40 mg tablet,delayed release (DR/EC) 40 mg PO DAILY Qty: 90 3RF aspirin [Mohit Low Dose Aspirin] 81 mg tablet,delayed release (DR/EC) 81 mg PO QAM magnesium oxide 400 mg (241.3 mg magnesium) Tablet 400 mg PO QAM Qty: 30 0RF tramadol 50 mg tablet 50 - 100 mg PO Q6 PRN (Reason: pain) Referrals Referrals: Jeremias Morton DO [Primary Care Provider] -
[2023-07-12 05:30] LABS: Basophils # (auto) 0.11 K/uL (0.00-0.20); Basophils % (auto) 0.8 %; Eosinophils # (auto) 0.48 K/uL (0.00-0.50); Eosinophils % (auto) 3.5 %; Hematocrit (blood only) 41.8 % (42.0-52.0); Hemoglobin 13.7 g/dl (14.0-18.0); Immature Granulocytes # (auto) 0.03 K/uL (0.01-0.20); Immature Granulocytes % (auto) 0.2 %; Lymphocytes # (auto) 1.98 K/uL (1.20-3.40); Lymphocytes % (auto) 14.3 %; Mean Corpuscular Hemoglobin 27.4 pg (25.0-34.0); Mean Corpuscular Hgb Conc 32.8 g/dL (32.0-36.0); Mean Corpuscular Volume 83.6 fL (80.0-100.0); Mean Platelet Volume 9.3 fL (9.4-12.4); Neutrophils # (auto) 10.11 K/uL (1.40-6.50); Neutrophils % (auto) 73.2 %; Platelet Count 395 K/uL (130-400); RDW Coefficient of Variation 13.9 % (11.5-14.5); RDW Standard Deviation 42.2 fL (36.4-46.3); White Blood Count 13.81 K/ul (4.8-10.8)
[2023-07-12 05:47] LABS: Albumin Globulin Ratio 0.9 (0.9-2); Albumin Level 3.6 gm/dl (3.4-5.0); BUN Creatinine Ratio 13.1 (10-20); Bilirubin,Total 0.8 mg/dl (0.2-1.0); Calcium 9.6 mg/dl (8.6-10.3); Est GFR (African American) 91.6 ml/min; Globulin 4.2 gm/dl (2.5-4.0); Potassium 3.3 mmol/L (3.5-5.1); Total Protein 7.8 gm/dl (6.0-8.3)
--- NOTE | 2023-07-12 06:49 | CT Scan Report ---
CT OF THE ABDOMEN AND PELVIS WITHOUT CONTRAST CLINICAL HISTORY: Right flank pain. COMPARISON STUDY: CT of the abdomen and pelvis May 22, 2023. TECHNIQUE: Axial images of the abdomen and pelvis were obtained without IV contrast. Images were revi ewed in the axial, sagittal, and coronal planes. Automated exposure control was utilized for the benito dy. A dose lowering technique was utilized adhering to the principles of ALARA. FINDINGS: Lung bases are unremarkable. There is a prosthetic aortic valve. Extensive coronary artery calcification is incidentally noted. Subpleural right lower opacity represents atelectasis. No pneuma tosis, free air or portal venous gas is present. A few small right renal calculi measure up to 2 mm. Left renal calculi measure up to 7 mm. There are no ureteral calculi. There is no hydronephrosis. Jaxon dder wall thickening with adjacent stranding is again noted. Several bladder calculi measure up to 6 mm. Evaluation if the remainder of the abdomen and pelvis is suboptimal on this unenhanced exam. Live r, spleen and pancreas are unremarkable. There is no biliary or pancreatic ductal dilatation. The gal lbladder is mildly distended and there is trace pericholecystic stranding. A small stone within the g allbladder neck or cystic duct is noted. There is extensive aortoiliac atherosclerotic plaque. No susie dence for a bowel obstruction status post descending colostomy. There is persistent rectal wall thick ening with perirectal stranding. This was shown on prior exam. A left perirectal drain remains in cy ce. A small fluid and gas containing perirectal fluid collection measures approximately 2 x 1.3 cm. T he drain appears to be well-positioned. There are postoperative findings within both groins. No addit ional fluid collections are present. Bilateral adrenal nodules are unchanged from earlier exams. Thes e are likely benign. IMPRESSION: 1. Bilateral nephrolithiasis. No ureteral calculi or hydronephrosis. 2. Mildly distended gallbladder with trace pericholecystic stranding and a small stone within the gal lbladder neck or cystic duct. Acute cholecystitis cannot be excluded. A right upper quadrant ultrasound is recommended for further evaluation. 3. Left perirectal drainage catheter in place. Small left perirectal fluid collection, measuring appr oximately 2 x 1.3 cm. The drain is well-positioned. 4. Persistent rectal wall thickening with adjacent stranding. This favors proctitis. However, an unde rlying mucosal lesion cannot be excluded. 5. Bladder wall thickening, similar to prior exam. This could be correlated with urinalysis. Several bladder calculi measure up to 6 mm. 6. Status post descending colostomy. No evidence for a bowel obstruction. ACT 112: Negative or not required by law. Electronically signed by: Benji Oconnell M.D. 07/12/2023 6:47 AM
[2023-07-12] MEDS ORDERED: ONDANSETRON INJ 2 MG/ML 2 ML VIAL IV STA (06:53)
[2023-07-12] MEDS ORDERED: PIPERACILLIN/TAZOBACTAM 4.5 GM/100 ML BAG IV ONE (06:53)
[2023-07-12] MEDS ORDERED: SODIUM CHLORIDE 0.9% 1,000 ML IV ONE (06:53)
[2023-07-12 06:57] LABS: Appearance Urine Cloudy (Clear); Bacteria Urine Automated 1+ (Negative); Bilirubin Urine Negative (Negative); Blood Urine Trace (Negative); Cast Urine Automated 0 /lpf (0-5); Color Urine Yellow; Glucose Urine UA Negative (Negative); Ketones Urine Trace (Negative); Leukocyte Esterase Urine 3+ (Negative); Nitrite Urine Negative (Negative); Protein Urine Negative (Negative); RBC Urine Automated 0-4 /hpf (0-4); Specific Gravity Urine 1.012 (1.000-1.030); Urobilinogen Urine Negative (Negative); WBC Urine Automated >30 /hpf (0-5); pH Urine 6.5 (4.5-7.5)
--- NOTE | 2023-07-12 07:55 | Surgery Consultation ---
Date of Consultation July 12, 2023 Assessment & Plan (1) Acute cholecystitis: Patient is a 68 yoM with PMH of Diabetes, CKD, PAD, CAD, aortic stenosis, Aortic valve replacement, Coronary artery bypass, , Above knee amputation left, BKA- Right, COPD, BPH, HTN , Femoropopliteal bypass, chronic left rectal abscess with a drain, colostomy on 03/08/23 that presents to the [facility] ER with C/o RUQ pain, RLQ pain that radiates to his right back which started at 3am this morning while laying in bed. He took a Tramadol and that help relieve the pain some but did not take it away. Reports he ate scrapple last night for dinner. He has associated nausea with dry heaves however has not had any emesis. Denies fever, chills. Reports he has never had pain like this in the past. Follows with [facility] surgeon in [place] Dr. Vides.Currently takes Plavix 75mg last dose was yesterday. CT scan shows IMPRESSION: 1. Bilateral nephrolithiasis. No ureteral calculi or hydronephrosis. 2. Mildly distended gallbladder with trace pericholecystic stranding and a small stone within the gallbladder neck or cystic duct. Acute cholecystitis cannot be excluded. A right upper quadrant ultrasound is recommended for further evaluation. 3. Left perirectal drainage catheter in place. Small left perirectal fluid collection, measuring approximately 2 x 1.3 cm. The drain is well-positioned. 4. Persistent rectal wall thickening with adjacent stranding. This favors proctitis. However, an underlying mucosal lesion cannot be excluded. 5. Bladder wall thickening, similar to prior exam. This could be correlated with urinalysis. Several bladder calculi measure up to 6 mm. 6. Status post descending colostomy. No evidence for a bowel obstruction. Ultrasound reads: IMPRESSION: 1. Distended and abnormal appearing gallbladder as above with no shadowing gallstones clearly identified. When correlated with today's CT findings the appearance is highly suspicious for acute cholecystitis. Clinical correlation will be essential. If clinically warranted a nuclear hepatobiliary scan would be confirmatory. 2. There is no intrahepatic biliary ductal dilatation. The common bile duct was not visualized. On exam patient is TTP in RUQ and RLQ, abdomen soft non-distended noted colostomy left side with brown stool. WBC 13.8 LFT WNL Keep NPO Give IV fluids for hydration IV analgesics Patient has an extensive PMH he is high risk for surgery. Last took Plavix yesterday, Will discuss case with on-call surgeon Dr. Dawson , further recommendations will be forth coming. Supervising Physician Co-Signing Physician Notes Patient seen and examined, labs and imaging reviewed, agree with above. 68-year-old male with significant cardiovascular history including bilateral lower extremity amputations, CABG, and aortic valve replacement currently on Plavix with a history of diverting colostomy for persistent perirectal abscess, here for right upper quadrant pain. On exam he is afebrile stable vitals. He is tender palpation of the right upper quadrant. His colostomy is in the left lower quadrant and functioning. Port site incisions well-healed. Umbilical hernia incision well-healed. WBC elevated. CT scan personally viewed and interpreted and agree with the assessment of distended gallbladder with some mild pericholecystic inflammation consistent with a likely cholecystitis. Ultrasound confirmed likely cholecystitis, stone seen on CT not seen on ultrasound. We discussed his options to include transfer back to [facility] for further treatment versus treatment here. We will have him cleared by cardiology. We will wait a few days to perform cholecystectomy as he is on Plavix. His colostomy was performed laparoscopically and was not performed as an emergent laparotomy, therefore there will hopefully be minimal scar tissue. Medicine to admit patient, appreciate their assistance Cardiology consult for risk assessment and perioperative recommendation IV antibiotics, IV fluids, may have clear liquids for now. Given Plavix, will likely wait to perform laparoscopic cholecystectomy until later this week or early next week. plan for robotic assisted laparoscopic cholecystectomy with possible cholangiogram risks discussed to include but not limited to bleeding, infection, retained stone, bile leak, open surgery, damage to surrounding structures including bile duct, need for future or more extensive surgery, failure to treat symptoms, and risks of anesthesia. History of Present Illness Reason for Consultation: Right upper quadrant pain Requesting Physician: Dr. Padron History of Present Illness Patient is a 68 yoM with PMH of Diabetes, CKD, PAD, CAD, aortic stenosis, Aortic valve replacement, Coronary artery bypass, , Above knee amputation left, BKA- Right, COPD, BPH, HTN , Femoropopliteal bypass, chronic left rectal abscess with a drain, colostomy on 03/08/23 that presents to the [facility] ER with C/o RUQ pain, RLQ pain that radiates to his right back which started at 3am this morning while laying in bed. He took a Tramadol and that help relieve the pain some but did not take it away. Reports he ate scrapple last night for dinner. He has associated nausea with dry heaves however has not had any emesis. Denies fever, chills. Reports he has never had pain like this in the past. Follows with [facility] surgeon in [place] Dr. Vides.Currently takes Plavix 75mg last dose was yesterday. Allergies Allergy/AdvReac Type Severity Reaction Status Date / Time No Known Allergies Allergy Unknown Verified 06/19/23 09:15 Home Medications Medication Instructions Recorded Confirmed Type aspirin 81 mg tablet,delayed 81 mg PO QAM 05/04/21 07/12/23 History release (Mohit Low Dose Aspirin) atorvastatin 80 mg tablet (Lipitor) 80 mg PO HS #90 tabs 11/15/21 07/12/23 Rx folic acid 1 mg tablet 1 mg PO QAM #30 tabs 06/23/22 07/12/23 Rx levothyroxine 175 mcg tablet 175 mcg PO QAM #90 tabs 07/01/22 07/12/23 Rx (Synthroid) magnesium oxide 400 mg (241.3 mg 400 mg PO QAM #30 tabs 07/07/22 07/12/23 Rx magnesium) tablet acetaminophen 500 mg tablet 1,000 mg PO Q8 PRN Pain 07/18/22 07/12/23 History (Tylenol Extra Strength) nystatin 100,000 unit/gram topical 1 applic topical BID PRN Skin 07/18/22 07/12/23 History powder Irritation metoprolol tartrate 25 mg tablet 12.5 mg PO BID #90 tabs 08/08/22 07/12/23 Rx calcitriol 0.25 mcg capsule 0.25 mcg PO QAM #30 caps 08/19/22 07/12/23 Rx (Rocaltrol) clopidogrel 75 mg tablet (Plavix) 75 mg PO QAM #30 tabs 08/19/22 07/12/23 Rx insulin aspart U-100 100 unit/mL 0 unit continuous subcutaneous 11/25/22 07/12/23 History subcutaneous solution (Novolog infusion DAILY U-100 Insulin aspart) menthol 0.44 %-zinc oxide 20.6 % 1 applic EXT TID 11/25/22 07/12/23 History topical ointment (Calmoseptine) zinc oxide 16 % topical ointment 1 applic EXT TID 11/25/22 07/12/23 History (Boudreauxs Butt Paste) pantoprazole 40 mg tablet,delayed 40 mg PO DAILY #90 tabs 12/12/22 07/12/23 Rx release (Protonix) Replacement Brakes for Manual #1 ea 05/12/23 06/16/23 Rx Wheelchair mupirocin 2 % topical ointment 1 applic topical Q12H 05/12/23 07/12/23 History trazodone 100 mg tablet 100 mg PO HS #30 tabs 05/17/23 07/12/23 Rx tamsulosin 0.4 mg capsule 0.4 mg PO DAILY #90 caps 05/18/23 07/12/23 Rx tramadol 50 mg tablet 50 - 100 mg PO Q6 PRN pain 05/22/23 07/12/23 History cyclobenzaprine 10 mg tablet 10 mg PO Q8H PRN Muscle Spasm #90 06/16/23 07/12/23 Rx tabs Mattress (Air or other) #1 ea 06/19/23 Rx Wheelchair (Manual) (Manual #1 ea 06/19/23 Rx Wheelchair) ferrous sulfate 325 mg (65 mg 325 mg PO BID #60 tabs 06/19/23 07/12/23 Rx iron) tablet,delayed release chlorthalidone 25 mg tablet 25 mg PO QAM #90 tabs 07/03/23 07/12/23 Rx ezetimibe 10 mg tablet 10 mg PO DAILY #30 tabs 07/10/23 07/12/23 Rx potassium chloride 20 mEq 20 meq PO BID 07/12/23 07/12/23 History tablet,extended release Patient History Medical History Above knee amputation of left lower extremity Anemia Anemia Aortic stenosis s/p porcine valve replacement (2015) + CABG x1 Follows with [facility] cardio Below-knee amputation of right lower extremity BPH (benign prostatic hyperplasia) CAD (coronary artery disease) s/p CABG x 1 (2015) Candidal diaper rash Cellulitis of perineum Cellulitis of scrotum Clostridium difficile colitis Constipation COPD (chronic obstructive pulmonary disease) DVT prophylaxis Dyslipidemia Folate deficiency GERD (gastroesophageal reflux disease) History of Clostridium difficile infection s/p treatment (2020) History of colon polyps 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) Hx MRSA infection 01/2022 (left heel) Hypertension Hypothyroidism Stage III pressure ulcer Surgical wound, non healing Type I diabetes mellitus, uncontrolled Vitamin D deficiency Surgical History Below-knee amputation of right lower extremity H/O cataract extraction R/L H/O endarterectomy R common femoral (11/2018) H/O vascular surgery Right Femoral to Posterior tibial Prosthetic Bypass Graft(Right) History of ankle surgery LEFT ANKLE +HARDWARE REMOVED History of aortic valve replacement 2015 ([facility] [place]) History of arterial bypass of lower extremity Left femoral to PT composite bypass graft (06/2020) History of cardiac cath x2, most recent 2016 > no stents (subsequent CABG with AVR in 2015); [facility] History of carpal tunnel release R/L History of colonoscopy History of coronary artery bypass graft CABG x1 + AVR (2015) History of esophagogastroduodenoscopy (EGD) History of myringotomy w/tubes bilat. History of open reduction and internal fixation (ORIF) procedure LLE () History of skin graft Split Thickness Skin Graft of Left Lateral Ankle (11/18/20): LMA#5, atraumatic x1 at [facility] History of tonsillectomy History of tooth extraction History of umbilical hernia repair Hx of cystoscopy w/stent placement; stent then removed Hx of surgical procedure Left Leg Wound Debridement and Irrigation S/P femoral-tibial bypass S/P femoropopliteal bypass surgery Right fem-pop bypass graft (01/19/21): Grade 2 view, MAC 3.0, ETT 8.0 at [facility] S/P insertion of iliac artery stent B/L iliac stent placement (2014) 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 Left transmetatarsal amputation (11/23/21): LMA# 5.0 at [facility]. No issues noted per post-op anesthesia progress note. HX 1 SX TO REMOVE ALL TOES LEFT FOOT NOVEMBER 2021 Family History Brother Family history of diabetes mellitus Sister Family history of diabetes mellitus Mother Family history of diabetes mellitus Grandmother (Maternal) Family history of diabetes mellitus Uncle Family hx of colon cancer Colorectal cancer Father Family history of esophageal cancer Sister Family history of diabetes mellitus Other No family history of adverse response to anesthesia Denies family history of Ovarian cancer Prostate cancer Myocardial infarction Breast cancer Social History Smoking Status: Former smoker Tobacco Type: Cigarettes and Cigars Second Hand Exposure: Yes (as a child); Do You Dip or Chew Tobacco: No; Hx Alcohol Use: No Hx Substance Use: No Preferred Language: Senegalese Communication Ability: Effective Visual Impairment: No Limitations Hearing Ability: Hard of Hearing Laundry Routeman Required: No Beliefs That Will Affect Care: None marital status: Current Living Situation: Other Current Living Situation Comment: roommate current occupational status: disabled How many Children do You have: 2 How many Children do You have Comment: family assists with care, also is part of the waiver program so the pt's roommate is able to assist with care through this program Feels Safe at Home: Yes Childhood Exposure to Second-Hand Smoke: Yes Diet: diabetic Diet Comment: Carb Counts. ([id number], roughly), protein drinks caffeine: Yes (coffee, rarely ) during the past year weight has: remained stable Dental Care, Regularly: No Seatbelt Use: always Sunscreen Use: No Gender Identity: Male Assistive Devices: Prosthesis, Walker and Wheelchair Review of Systems Constitutional: no fever and no chills Respiratory: no dyspnea Cardiovascular: no chest pain Gastrointestinal: + abdominal pain, + belching and + nausea; no vomiting Physical Exam Physical Exam: alert oriented Constitutional: cooperative; no acute distress and + uncomfortable Respiratory: normal respiratory effort and able to speak in complete sentences; no respiratory distress Cardiovascular: Rate/Rhythm: regular rate Gastrointestinal (Abdomen): Inspection/Auscultation: + abdominal surgical scar and + abdominal surgical drain present (colostomy, ) Percussion/Palpation: + abdomen tender, + guarding and abdomen soft Results & Data Vital Signs (Past 12 Hours) Vital Signs Temp Pulse Pulse Resp BP BP Pulse Ox 07/12/23 07:30 80 17 99 07/12/23 07:00 85 19 97 07/12/23 07:00 182/97 H 07/12/23 06:30 74 24 141/77 H 95 07/12/23 06:00 71 16 131/77 93 07/12/23 05:52 75 11 L 136/83 95 07/12/23 05:23 79 07/12/23 05:18 97.7 F 78 16 127/87 98 07/12/23 05:18 97.7 F 78 16 127/87 98 O2 Del Method 07/12/23 07:30 07/12/23 07:00 07/12/23 07:00 07/12/23 06:30 07/12/23 06:00 07/12/23 05:52 07/12/23 05:23 07/12/23 05:18 Room Air 07/12/23 05:18 Room Air Diagnostic Findings [place], [place] [phone] CT Scan Report Patient:BRANDON MOE Jr Admit Date:07/12/23 MR#:[id number] Address1:[address] [place] [address] Acct ID:[id number] Address2: Date:1955 [facility] Zip:[place] [address] Age:68 Location:ED Sex:M Room/Bed: Att Phy: Diagnosis:R Side Back Pain Thao Phy:Jeremias Morton DO Service Date:07/12/23 [facility] Phy: Interpreting Phy:Benji Oconnell MDAdmit Phy: Ordering Phy:Divine Padron MD cc: ~ CT OF THE ABDOMEN AND PELVIS WITHOUT CONTRAST CLINICAL HISTORY: Right flank pain. COMPARISON STUDY: CT of the abdomen and pelvis May 22, 2023. TECHNIQUE: Axial images of the abdomen and pelvis were obtained without IV contrast. Images were reviewed in the axial, sagittal, and coronal planes. Automated exposure control was utilized for the study. A dose lowering technique was utilized adhering to the principles of ALARA. FINDINGS: Lung bases are unremarkable. There is a prosthetic aortic valve. Extensive coronary artery calcification is incidentally noted. Subpleural right lower opacity represents atelectasis. No pneumatosis, free air or portal venous gas is present. A few small right renal calculi measure up to 2 mm. Left renal calculi measure up to 7 mm. There are no ureteral calculi. There is no hydronephrosis. Bladder wall thickening with adjacent stranding is again noted. Several bladder calculi measure up to 6 mm. Evaluation if the remainder of the abdomen and pelvis is suboptimal on this unenhanced exam. Liver, spleen and pancreas are unremarkable. There is no biliary or pancreatic ductal dilatation. The gallbladder is mildly distended and there is trace pericholecystic stranding. A small stone within the gallbladder neck or cystic duct is noted. There is extensive aortoiliac atherosclerotic plaque. No evidence for a bowel obstruction status post descending colostomy. There is persistent rectal wall thickening with perirectal stranding. This was shown on prior exam. A left perirectal drain remains in place. A small fluid and gas containing perirectal fluid collection measures approximately 2 x 1.3 cm. The drain appears to be well-positioned. There are postoperative findings within both groins. No additional fluid collections are present. Bilateral adrenal nodules are unchanged from earlier exams. These are likely benign. IMPRESSION: 1. Bilateral nephrolithiasis. No ureteral calculi or hydronephrosis. 2. Mildly distended gallbladder with trace pericholecystic stranding and a small stone within the gallbladder neck or cystic duct. Acute cholecystitis cannot be excluded. A right upper quadrant ultrasound is recommended for further evaluation. 3. Left perirectal drainage catheter in place. Small left perirectal fluid collection, measuring approximately 2 x 1.3 cm. The drain is well-positioned. 4. Persistent rectal wall thickening with adjacent stranding. This favors proctitis. However, an underlying mucosal lesion cannot be excluded. 5. Bladder wall thickening, similar to prior exam. This could be correlated with urinalysis. Several bladder calculi measure up to 6 mm. 6. Status post descending colostomy. No evidence for a bowel obstruction. ACT 112: Negative or not required by law. Electronically signed by: Benji Oconnell M.D. 07/12/2023 6:47 AM Dictated:07/12/23 06 Transcribed: 07/12/23 0632 [place], [place] [phone] Ultrasound Report Patient:BRANDON MOE Jr Admit Date:07/12/23 MR#:[id number] Address1:[address] [place] [address] Acct ID:[id number] Address2: Date:1955 [facility] Zip:[place] [address] Age:68 Location:ED Sex:M Room/Bed: Att Phy: Diagnosis:R Side Back Pain Thao Phy:Jeremias Morton DO Service Date:07/12/23 [facility] Phy: Interpreting Phy:Tae Pizarro MDAdmit Phy: Ordering Phy:Divine Padron MD cc: ~ ULTRASOUND RIGHT UPPER QUADRANT ABDOMEN CLINICAL HISTORY: Right upper quadrant abdominal pain. COMPARISON STUDY: Abdominal CT dated 07/12/2023. TECHNIQUE: Real-time, grayscale, and color flow sonography of the right upper quadrant of the abdomen was performed. Images are reviewed in the transverse and longitudinal planes. FINDINGS: Liver: The liver is normal in size and heterogeneous and echotexture. There is no intrahepatic biliary ductal dilatation. The main portal vein is patent. Gallbladder: The gallbladder is distended measuring up to 11 cm in length. No shadowing gallstones are identified. Gallstones in the region of the gallbladder neck/cystic duct seen by CT are not apparent on ultrasound. The gallbladder wall appears mildly thickened and edematous, measuring up to 3.5 mm. No pericholecystic fluid is seen. A sonographic Zhu's sign is reportedly absent. The common bile duct obscured by bowel. Pancreas: Visualized portions of the pancreatic head are normal in appearance. The splenic vein is patent. The majority of the pancreas was not visualized due to overlying bowel gas. Right kidney: Survey images of the right kidney demonstrate normal size and echotexture. There is no hydronephrosis. Ascites: None. IMPRESSION: 1. Distended and abnormal appearing gallbladder as above with no shadowing gallstones clearly identified. When correlated with today's CT findings the appearance is highly suspicious for acute cholecystitis. Clinical correlation will be essential. If clinically warranted a nuclear hepatobiliary scan would be confirmatory. 2. There is no intrahepatic biliary ductal dilatation. The common bile duct was not visualized. ACT 112: Negative or not required by law. Electronically signed by: Tae Pizarro M.D. 07/12/2023 8:53 AM Dictated:07/12/23847 Transcribed: 07/12/23847 PG Care Time/CCT Total # of Minutes Spent Total Time Spent with Patient: Total time spent is greater than 50% in coordination of care (as documented) at patient's floor/unit and/or counseling patient: Coding Level of Care Code 38257 OP VST NEW LOW 30-44 MIN Diagnoses Acute cholecystitis K81.0
--- NOTE | 2023-07-12 08:55 | Ultrasound Report ---
ULTRASOUND RIGHT UPPER QUADRANT ABDOMEN CLINICAL HISTORY: Right upper quadrant abdominal pain. COMPARISON STUDY: Abdominal CT dated 07/12/2023. TECHNIQUE: Real-time, grayscale, and color flow sonography of the right upper quadrant of the abdomen was performed. Images are reviewed in the transverse and longitudinal planes. FINDINGS: Liver: The liver is normal in size and heterogeneous and echotexture. There is no intrahepatic biliar y ductal dilatation. The main portal vein is patent. Gallbladder: The gallbladder is distended measuring up to 11 cm in length. No shadowing gallstones ar e identified. Gallstones in the region of the gallbladder neck/cystic duct seen by CT are not apparen t on ultrasound. The gallbladder wall appears mildly thickened and edematous, measuring up to 3.5 mm. No pericholecystic fluid is seen. A sonographic Zhu's sign is reportedly absent. The common bile duct obscured by bowel. Pancreas: Visualized portions of the pancreatic head are normal in appearance. The splenic vein is pa tent. The majority of the pancreas was not visualized due to overlying bowel gas. Right kidney: Survey images of the right kidney demonstrate normal size and echotexture. There is no hydronephrosis. Ascites: None. IMPRESSION: 1. Distended and abnormal appearing gallbladder as above with no shadowing gallstones clearly identif ied. When correlated with today's CT findings the appearance is highly suspicious for acute cholecyst itis. Clinical correlation will be essential. If clinically warranted a nuclear hepatobiliary scan wo uld be confirmatory. 2. There is no intrahepatic biliary ductal dilatation. The common bile duct was not visualized. ACT 112: Negative or not required by law. Electronically signed by: Tae Pizarro M.D. 07/12/2023 8:53 AM
--- NOTE | 2023-07-12 08:58 | Electrocardiogram Report ---
Test Reason : Blood Pressure : / mmHG Vent. Rate : 076 BPM Atrial Rate : 076 BPM P-R Int : 172 ms QRS Dur : 152 ms QT Int : 482 ms P-R-T Axes : 030 066 000 degrees QTc Int : 542 ms Normal sinus rhythm Right bundle branch block Abnormal ECG When compared with ECG of 22-MAY-2023 18:06, Borderline criteria for Inferior infarct are now Present QT has lengthened Confirmed by Juni Mahoney ([id number]) on 07/12/2023 8:57:37 AM Referred By: REFERRED SELF Confirmed By:Alexei Mahoney
[2023-07-12] MEDS ORDERED: GLUCOSE 10 TAB/TUBE PO PRN (09:45)
[2023-07-12] MEDS ORDERED: GLUCAGON FOR INJ 1 MG VIAL SQ PRN (09:45)
[2023-07-12] MEDS ORDERED: ACETAMINOPHEN 500 MG TAB PO PRN (09:45)
[2023-07-12] MEDS ORDERED: DEXTROSE 50% 50 ML SYRINGE IV PRN (09:45)
[2023-07-12] MEDS ORDERED: INSULIN ASPART 100 UNITS/ML VIAL SC PRN (10:15)
[2023-07-12] MEDS: INSULIN, Rapid-Acting PUMP SCH ×4 (10:30→22:11)
[2023-07-12] MEDS: METOPROLOL TARTRATE 25 MG TAB PO SCH ×2 (10:35→20:01)
[2023-07-12] MEDS ORDERED: INSULIN ASPART PER UNIT CHARGE SC SCH (11:30)
[2023-07-12] MEDS: PIPERACILLIN/TAZOBACTAM 4.5 GM in DEXTROSE 5% MINI-B 100 ML IV SCH ×2 (11:49→19:54)
--- NOTE | 2023-07-12 15:09 | Hospitalist Progress Note ---
Date of Service July 12, 2023 Assessment & Plan (1) Acute cholecystitis: Plan: Patient is a 68 yoM with PMH of Diabetes, CKD, PAD, CAD, aortic stenosis, Aortic valve replacement, Coronary artery bypass, , Above knee amputation left, BKA- Right, COPD, BPH, HTN , Femoropopliteal bypass, chronic left rectal abscess with a drain, colostomy on 03/08/23 that presents to the [facility] ER with C/o RUQ pain, RLQ pain that radiates to his right back which started at 3am this morning while laying in bed. He took a Tramadol and that help relieve the pain some but did not take it away. Reports he ate scrapple last night for dinner. He has associated nausea with dry heaves however has not had any emesis. Denies fever, chills. Reports he has never had pain like this in the past. Follows with [facility] surgeon in [place] Dr. Vides.Currently takes Plavix 75mg last dose was yesterday. CT scan shows IMPRESSION: 1. Bilateral nephrolithiasis. No ureteral calculi or hydronephrosis. 2. Mildly distended gallbladder with trace pericholecystic stranding and a small stone within the gallbladder neck or cystic duct. Acute cholecystitis cannot be excluded. A right upper quadrant ultrasound is recommended for further evaluation. 3. Left perirectal drainage catheter in place. Small left perirectal fluid collection, measuring approximately 2 x 1.3 cm. The drain is well-positioned. 4. Persistent rectal wall thickening with adjacent stranding. This favors pro ctitis. However, an underlying mucosal lesion cannot be excluded. 5. Bladder wall thickening, similar to prior exam. This could be correlated with urinalysis. Several bladder calculi measure up to 6 mm. 6. Status post descending colostomy. No evidence for a bowel obstruction. Ultrasound reads: IMPRESSION: 1. Distended and abnormal appearing gallbladder as above with no shadowing gallstones clearly identified. When correlated with today's CT findings the appearance is highly suspicious for acute cholecystitis. Clinical correlation will be essential. If clinically warranted a nuclear hepatobiliary scan would be confirmatory. 2. There is no intrahepatic biliary ductal dilatation. The common bile duct was not visualized. On exam patient is TTP in RUQ and RLQ, abdomen soft non-distended noted colostomy left side with brown stool. WBC 13.8 LFT WNL Keep NPO Give IV fluids for hydration IV analgesics Patient has an extensive PMH he is high risk for surgery. Last took Plavix yeste rday, Will discuss case with on-call surgeon Dr. Dawson , further recommendations will be forth coming. Admission and Anticipated Discharge Date Admission Date: July 12, 2023 Results & Data Results & Data Vital Signs (Past 12 Hours) Vital Signs Temp Pulse Pulse Resp BP BP Pulse Ox 07/12/23 14:04 99.0 F 70 18 110/68 96 07/12/23 13:30 67 17 98 07/12/23 13:30 112/64 07/12/23 13:00 68 17 07/12/23 13:00 120/73 07/12/23 13:45 07/12/23 12:31 116/52 L 07/12/23 12:31 69 22 96 07/12/23 12:30 70 19 94 07/12/23 12:01 113/49 L 07/12/23 12:01 70 21 07/12/23 12:00 70 18 07/12/23 11:31 126/67 07/12/23 11:31 76 17 07/12/23 11:30 89 13 93 07/12/23 11:00 07/12/23 11:00 72 20 07/12/23 11:00 127/49 L 07/12/23 10:30 73 20 93 07/12/23 10:30 117/56 L 07/12/23 10:00 73 22 96 07/12/23 10:00 109/53 L 07/12/23 09:30 74 21 96 07/12/23 09:30 109/63 07/12/23 09:25 73 07/12/23 09:00 77 25 H 95 07/12/23 09:00 109/67 07/12/23 08:37 94 07/12/23 08:00 70 20 93 07/12/23 07:30 152/66 H 07/12/23 07:30 80 17 99 07/12/23 07:00 85 19 97 07/12/23 07:00 182/97 H 07/12/23 06:30 74 24 141/77 H 95 07/12/23 06:00 71 16 131/77 93 07/12/23 05:52 75 11 L 136/83 95 07/12/23 05:23 79 07/12/23 05:18 97.7 F 78 16 127/87 98 07/12/23 05:18 97.7 F 78 16 127/87 98 O2 Del Method O2 Del Method 07/12/23 14:04 Room Air 07/12/23 13:30 Room Air 07/12/23 13:30 07/12/23 13:00 07/12/23 13:00 07/12/23 13:45 Room Air 07/12/23 12:31 07/12/23 12:31 07/12/23 12:30 07/12/23 12:01 07/12/23 12:01 07/12/23 12:00 07/12/23 11:31 07/12/23 11:31 07/12/23 11:30 07/12/23 11:00 Room Air 07/12/23 11:00 07/12/23 11:00 07/12/23 10:30 07/12/23 10:30 07/12/23 10:00 07/12/23 10:00 07/12/23 09:30 Room Air 07/12/23 09:30 07/12/23 09:25 07/12/23 09:00 Room Air 07/12/23 09:00 07/12/23 08:37 07/12/23 08:00 Room Air 07/12/23 07:30 07/12/23 07:30 07/12/23 07:00 07/12/23 07:00 07/12/23 06:30 07/12/23 06:00 07/12/23 05:52 07/12/23 05:23 07/12/23 05:18 Room Air 07/12/23 05:18 Room Air PG Care Time/CCT Total # of Minutes Spent Total Time Spent with Patient: Total time spent is greater than 50% in coordination of care (as documented) at patient's floor/unit and/or counseling patient: Coding Diagnoses Acute cholecystitis K81.0
[2023-07-12] MEDS: BUTT PASTE (ZINC OXIDE 16%) 171 APPLN/57 GM JAR EXT SCH ×2 (15:12→20:06)
[2023-07-12] MEDS: SODIUM CHLORIDE 0.9% 1,000 ML IV SCH (15:26)
--- NOTE | 2023-07-12 15:26 | History & Physical Report ---
Date of Service July 12, 2023 Assessment & Plan (1) Acute cholecystitis: Plan: imaging suggests, possible stone in gb neck or cystic duct, . He has associated nausea with dry heaves however has not had any emesis. Denies fever, chills. no significant LFT abnormalities, mild leukocytosis CT scan shows Mildly distended gallbladder with trace pericholecystic stranding and a small stone within the gallbladder neck or cystic duct. Acute cholecystitis cannot be excluded. right upper quadrant ultrasound Distended and abnormal appearing gallbladder as above with no shadowing gallstones clearly identified. When correlated with today's CT findings the appearance is highly suspicious for acute cholecystitis. Clinical correlation will be essential. If clinically warranted a nuclear hepatobiliary scan would be confirmatory. ] Keep NPO extensive PMH he is high risk for surgery. Last took Plavix 07/11/[address] Dawson (2) Diabetes type 1, controlled: Plan: pt typically is a challenge to control , glycemic management recommends to have pt on own insulin pump and manage with dex scanner is npo at present CKD 3 is npo on ivf holding calcitrol (3) Aortic stenosis: Plan: s/p porcine valve replacement and cabg hold plavix/aspirin hold chlorthalidone, hold atorvastatin remains on metoprolol Plan also holding synthroid as npo consider intermittent iv dosing if npo is prolonged hold hs trazadone and cyclobenzaprine as is on opiate pain control Admission and Anticipated Discharge Date Admission Date: July 12, 2023 History of Present Illness Primary Care Provider: Jeremias Morton, DO -68-year-old diabetic male within ordered organ complications of macular vascular disease with bilateral lower leg amputations, perirectal abscess with recent diverting colostomy and both ocular and renal dysfunction from his diabetes who presents with concern for acute cholecystitis. patient is seen by Dr. Dawson who is deciding if appropriate for surgery at our facility given recent colostomy at [facility]. complicated resented with back pain and on imaging has suggestion of acute cholecystitis with possible stone in the gallbladder neck patient admitted for hydration pain control and antibiotic therapy Allergies Allergy/AdvReac Type Severity Reaction Status Date / Time No Known Allergies Allergy Unknown Verified 06/19/23 09:15 Home Medications Medication Instructions Recorded Confirmed Type aspirin 81 mg tablet,delayed 81 mg PO QAM 05/04/21 07/12/23 History release (Mohit Low Dose Aspirin) atorvastatin 80 mg tablet (Lipitor) 80 mg PO HS #90 tabs 11/15/21 07/12/23 Rx folic acid 1 mg tablet 1 mg PO QAM #30 tabs 06/23/22 07/12/23 Rx levothyroxine 175 mcg tablet 175 mcg PO QAM #90 tabs 07/01/22 07/12/23 Rx (Synthroid) magnesium oxide 400 mg (241.3 mg 400 mg PO QAM #30 tabs 07/07/22 07/12/23 Rx magnesium) tablet acetaminophen 500 mg tablet 1,000 mg PO Q8 PRN Pain 07/18/22 07/12/23 History (Tylenol Extra Strength) nystatin 100,000 unit/gram topical 1 applic topical BID PRN Skin 07/18/22 07/12/23 History powder Irritation metoprolol tartrate 25 mg tablet 12.5 mg PO BID #90 tabs 08/08/22 07/12/23 Rx calcitriol 0.25 mcg capsule 0.25 mcg PO QAM #30 caps 08/19/22 07/12/23 Rx (Rocaltrol) clopidogrel 75 mg tablet (Plavix) 75 mg PO QAM #30 tabs 08/19/22 07/12/23 Rx insulin aspart U-100 100 unit/mL 0 unit continuous subcutaneous 11/25/22 07/12/23 History subcutaneous solution (Novolog infusion DAILY U-100 Insulin aspart) menthol 0.44 %-zinc oxide 20.6 % 1 applic EXT TID 11/25/22 07/12/23 History topical ointment (Calmoseptine) zinc oxide 16 % topical ointment 1 applic EXT TID 11/25/22 07/12/23 History (Boudreauxs Butt Paste) pantoprazole 40 mg tablet,delayed 40 mg PO DAILY #90 tabs 12/12/22 07/12/23 Rx release (Protonix) Replacement Brakes for Manual #1 ea 05/12/23 06/16/23 Rx Wheelchair mupirocin 2 % topical ointment 1 applic topical Q12H 05/12/23 07/12/23 History trazodone 100 mg tablet 100 mg PO HS #30 tabs 05/17/23 07/12/23 Rx tamsulosin 0.4 mg capsule 0.4 mg PO DAILY #90 caps 05/18/23 07/12/23 Rx tramadol 50 mg tablet 50 - 100 mg PO Q6 PRN pain 05/22/23 07/12/23 History cyclobenzaprine 10 mg tablet 10 mg PO Q8H PRN Muscle Spasm #90 06/16/23 07/12/23 Rx tabs Mattress (Air or other) #1 ea 06/19/23 Rx Wheelchair (Manual) (Manual #1 ea 06/19/23 Rx Wheelchair) ferrous sulfate 325 mg (65 mg 325 mg PO BID #60 tabs 06/19/23 07/12/23 Rx iron) tablet,delayed release chlorthalidone 25 mg tablet 25 mg PO QAM #90 tabs 07/03/23 07/12/23 Rx ezetimibe 10 mg tablet 10 mg PO DAILY #30 tabs 07/10/23 07/12/23 Rx potassium chloride 20 mEq 20 meq PO BID 07/12/23 07/12/23 History tablet,extended release Past Med/Surg History Medical History Above knee amputation of left lower extremity Anemia Anemia Aortic stenosis s/p porcine valve replacement (2015) + CABG x1 Follows with [facility] cardio Below-knee amputation of right lower extremity BPH (benign prostatic hyperplasia) CAD (coronary artery disease) s/p CABG x 1 (2015) Candidal diaper rash Cellulitis of perineum Cellulitis of scrotum Clostridium difficile colitis Constipation COPD (chronic obstructive pulmonary disease) DVT prophylaxis Dyslipidemia Folate deficiency GERD (gastroesophageal reflux disease) History of Clostridium difficile infection s/p treatment (2020) History of colon polyps 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) Hx MRSA infection 01/2022 (left heel) Hypertension Hypothyroidism Stage III pressure ulcer Surgical wound, non healing Type I diabetes mellitus, uncontrolled Vitamin D deficiency Surgical History Below-knee amputation of right lower extremity H/O cataract extraction R/L H/O endarterectomy R common femoral (11/2018) H/O vascular surgery Right Femoral to Posterior tibial Prosthetic Bypass Graft(Right) History of ankle surgery LEFT ANKLE +HARDWARE REMOVED History of aortic valve replacement 2015 ([facility]) History of arterial bypass of lower extremity Left femoral to PT composite bypass graft (06/2020) History of cardiac cath x2, most recent 2016 > no stents (subsequent CABG with AVR in 2016); [facility] History of carpal tunnel release R/L History of colonoscopy History of coronary artery bypass graft CABG x1 + AVR (2016) History of esophagogastroduodenoscopy (EGD) History of myringotomy w/tubes bilat. History of open reduction and internal fixation (ORIF) procedure LLE () History of skin graft Split Thickness Skin Graft of Left Lateral Ankle (11/18/20): LMA#5, atraumatic x1 at [facility] History of tonsillectomy History of tooth extraction History of umbilical hernia repair Hx of cystoscopy w/stent placement; stent then removed Hx of surgical procedure Left Leg Wound Debridement and Irrigation S/P femoral-tibial bypass S/P femoropopliteal bypass surgery Right fem-pop bypass graft (01/19/21): Grade 2 view, MAC 3.0, ETT 8.0 at [facility] S/P insertion of iliac artery stent B/L iliac stent placement (2014) 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 Left transmetatarsal amputation (11/23/21): LMA# 5.0 at [facility]. No issues noted per post-op anesthesia progress note. HX 1 SX TO REMOVE ALL TOES LEFT FOOT NOVEMBER 2021 Family History Brother Family history of diabetes mellitus Sister Family history of diabetes mellitus Mother Family history of diabetes mellitus Grandmother (Maternal) Family history of diabetes mellitus Uncle Family hx of colon cancer Colorectal cancer Father Family history of esophageal cancer Sister Family history of diabetes mellitus Other No family history of adverse response to anesthesia Denies family history of Ovarian cancer Prostate cancer Myocardial infarction Breast cancer Social History Smoking Status: Former smoker Tobacco Type: Cigarettes and Cigars Second Hand Exposure: Yes (as a child); Do You Dip or Chew Tobacco: No; Hx Alcohol Use: No Hx Substance Use: No Preferred Language: Cypriot Communication Ability: Effective Visual Impairment: No Limitations Hearing Ability: Hard of Hearing Communication Skills Instructor Required: No Beliefs That Will Affect Care: None marital status: Current Living Situation: Other Current Living Situation Comment: roommate/caregiver current occupational status: disabled How many Children do You have: 2 How many Children do You have Comment: family assists with care, also is part of the waiver program so the pt's roommate is able to assist with care through t his program Feels Safe at Home: Yes Childhood Exposure to Second-Hand Smoke: Yes Diet: diabetic Diet Comment: Carb Counts. ([id number], roughly), protein drinks caffeine: Yes (coffee, rarely ) during the past year weight has: remained stable Dental Care, Regularly: No Seatbelt Use: always Sunscreen Use: No Gender Identity: Male Assistive Devices: Cane, Denture - Upper, Glasses, Walker and Wheelchair Physical Exam Physical Exam: the patient appeared well nourished and normally developed. Vital signs as documented. Head exam is normocephalic atraumatic Neck is without JVD, thyromegaly, or carotid bruits. Lungs are clear to auscultation, no focal loss of breath sounds Cardiac exam, Rhythm is regular.. No murmurs, rubs or gallops. Abdominal exam reveals normal bowel sounds, soft tender to ruq but not acute abdomen, colostomy left sided and functioning Extremities are with AKA left, right bka but stumps skin is intact Neurologic exam is alert and oriented, no focal loss of strength or sensation Results & Data Results & Data Vital Signs (Past 12 Hours) Vital Signs Temp Pulse Pulse Resp BP BP Pulse Ox 07/12/23 14:04 99.0 F 70 18 110/68 96 07/12/23 13:30 67 17 98 07/12/23 13:30 112/64 07/12/23 13:00 68 17 07/12/23 13:00 120/73 07/12/23 13:45 07/12/23 12:31 116/52 L 07/12/23 12:31 69 22 96 07/12/23 12:30 70 19 94 07/12/23 12:01 113/49 L 07/12/23 12:01 70 21 07/12/23 12:00 70 18 07/12/23 11:31 126/67 07/12/23 11:31 76 17 07/12/23 11:30 89 13 93 07/12/23 11:00 07/12/23 11:00 72 20 07/12/23 11:00 127/49 L 07/12/23 10:30 73 20 93 07/12/23 10:30 117/56 L 07/12/23 10:00 73 22 96 07/12/23 10:00 109/53 L 07/12/23 09:30 74 21 96 07/12/23 09:30 109/63 07/12/23 09:25 73 07/12/23 09:00 77 25 H 95 07/12/23 09:00 109/67 07/12/23 08:37 94 07/12/23 08:00 70 20 93 07/12/23 07:30 152/66 H 07/12/23 07:30 80 17 99 07/12/23 07:00 85 19 97 07/12/23 07:00 182/97 H 07/12/23 06:30 74 24 141/77 H 95 07/12/23 06:00 71 16 131/77 93 07/12/23 05:52 75 11 L 136/83 95 07/12/23 05:23 79 07/12/23 05:18 97.7 F 78 16 127/87 98 07/12/23 05:18 97.7 F 78 16 127/87 98 O2 Del Method O2 Del Method 07/12/23 14:04 Room Air 07/12/23 13:30 Room Air 07/12/23 13:30 07/12/23 13:00 07/12/23 13:00 07/12/23 13:45 Room Air 07/12/23 12:31 07/12/23 12:31 07/12/23 12:30 07/12/23 12:01 07/12/23 12:01 07/12/23 12:00 07/12/23 11:31 07/12/23 11:31 07/12/23 11:30 07/12/23 11:00 Room Air 07/12/23 11:00 07/12/23 11:00 07/12/23 10:30 07/12/23 10:30 07/12/23 10:00 07/12/23 10:00 07/12/23 09:30 Room Air 07/12/23 09:30 07/12/23 09:25 07/12/23 09:00 Room Air 07/12/23 09:00 07/12/23 08:37 07/12/23 08:00 Room Air 07/12/23 07:30 07/12/23 07:30 07/12/23 07:00 07/12/23 07:00 07/12/23 06:30 07/12/23 06:00 07/12/23 05:52 07/12/23 05:23 07/12/23 05:18 Room Air 07/12/23 05:18 Room Air Code Status & VTE Plan VTE Prophylaxis Plan VTE Prophylaxis will be ordered: Yes PG Care Time/CCT Total # of Minutes Spent Total Time Spent with Patient: Total time spent is greater than 50% in coordination of care (as documented) at patient's floor/unit and/or counseling patient: Coding Level of Care Code 78075 INT INP/OBS CARE 375MIN Diagnoses Acute cholecystitis K81.0 Diabetes type 1, controlled E10.9 Aortic stenosis I35.0
--- NOTE | 2023-07-12 23:19 | Communication Note ---
Date of Service: July 12, 2023 Resident Activity Tracking Resident Involvement: Resident Care Provided Care Provided: Adult [facility]
[2023-07-13] MEDS: PIPERACILLIN/TAZOBACTAM 4.5 GM in DEXTROSE 5% MINI-B 100 ML IV SCH ×3 (03:45→20:03)
[2023-07-13] MEDS: traMADol HCL 50 MG TABLET PO PRN ×2 (03:50→19:59)
[2023-07-13] MEDS: SODIUM CHLORIDE 0.9% 1,000 ML IV SCH ×2 (04:36→17:50)
[2023-07-13] MEDS: BUTT PASTE (ZINC OXIDE 16%) 171 APPLN/57 GM JAR EXT SCH ×3 (09:06→20:03)
[2023-07-13] MEDS: INSULIN, Rapid-Acting PUMP SCH ×4 (09:08→21:05)
[2023-07-13] MEDS: METOPROLOL TARTRATE 25 MG TAB PO SCH ×2 (10:32→20:01)
[2023-07-13] MEDS: PANTOprazole 40 MG in SYRINGE 0 ML IV SCH (10:34)
--- NOTE | 2023-07-13 13:34 | Surgery Progress Note ---
Date of Service July 13, 2023 Assessment & Plan (1) Acute cholecystitis: Plan: Cholelithiasis with cholecystitis. Needs cardiology preop risk assessment prior to surgery. Continue to hold Plavix. We will look at surgical schedule, possible early next week. Continue to hold Plavix Cardiology consult Will plan for laparoscopic cholecystectomy with possible cholangiogram, likely early next risks discussed to include but not limited to bleeding, infection, retained stone, bile leak, open surgery, damage to surrounding structures including bile duct, need for future or more extensive surgery, failure to treat symptoms, and risks of anesthesia. (2) Aortic stenosis: (3) Diabetes type 1, controlled: Admission and Anticipated Discharge Date Admission Date: July 12, 2023 Subjective Admitted with cholecystitis, on Plavix, history of diverting colostomy for persistent perirectal abscess and fistula. He is feeling better. Physical Exam Constitutional: WD/WN, vitals as above Gastrointestinal (Abdomen): normal bowel sounds, soft, nontender, no hepatosplenomegaly Results & Data Vital Signs (Past 12 Hours) Vital Signs Temp Pulse Resp BP Pulse Ox O2 Del Method 07/13/23 11:30 36.8 C 77 20 130/66 96 Room Air 07/13/23 08:32 37.0 C 74 18 144/63 H 97 Room Air 07/13/23 03:10 36.5 C 68 18 146/75 H 93 Room Air Laboratory Results Laboratory Results - last 24 hr 07/12/23 07/12/23 07/13/23 16:26 20:30 07:44 POC Glucose 83 100 H 101 H 07/13/23 11:57 POC Glucose 73 PG Care Time/CCT Total # of Minutes Spent Total Time Spent with Patient: Total time spent is greater than 50% in coordination of care (as documented) at patient's floor/unit and/or counseling patient: Coding Level of Care Code 80672 SUB INP/OBS CARE 2/35MIN Diagnoses Acute cholecystitis K81.0 Aortic stenosis I35.0 Diabetes type 1, controlled E10.9
--- NOTE | 2023-07-13 17:52 | Cardiology Consultation ---
Date of Consultation July 13, 2023 Assessment & Plan (1) Aortic stenosis: (2) Coronary arteriosclerosis: (3) Peripheral arterial disease: Plan 1. Coronary artery disease: He has a remote history of single-vessel coronary bypass at the time of his aortic valve replacement. This occurred in 2015. He does not appear to have had any ischemic evaluation since that time. No current symptoms suggestive of coronary insufficiency or angina although he is very sedentary due to his lower extremity amputations. He is maintained on a regimen for secondary prevention to include a daily aspirin and high-dose atorvastatin. 2. Aortic stenosis: Status post bioprosthetic valve replacement in 2015. Most recent evaluation was in 2020 at which time the valve was felt to be functioning normally. No current symptoms suggestive of recurrent aortic stenosis. No high-pitched, loud or late peaking murmurs on examination. 3. 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 He had several interventions in attempt to improve flow to the lower extremities. No current breast symptoms. Again, treated with aspirin, clopidogrel, atorvastatin and Zetia. #4. Preoperative evaluation: The patient did well with his laparoscopic partial colectomy in February of this year. He does not report symptoms consistent with severe coronary disease, severe valvular disease or uncontrolled arrhythmias. However, he is very sedentary and if there are nonsurgical options or high risk coronary disease would result in intervention at a different facility then risk stratification would be useful. This could be accomplished with a dobutamine echocardiogram. This would also allow us to reevaluate aortic valve function. As with all patients in his demographic, avoidance of significant hypoxia, anemia, hyper or hypotension and tachycardia in the perioperative period is recommended. History of Present Illness Reason for Consultation: Pre-operative evlaluation Requesting Physician: Rhonda Attending Physician: Lui Ellis History of Present Illness The patient is a 68-year-old gentleman with an extensive past medical history to include valvular heart disease, coronary artery disease and peripheral arterial disease who presented to the hospital with symptoms of abdominal discomfort. Patient was discovered to have findings consistent with acute cholecystitis and at this point operative intervention is being considered. The patient is minimally ambulatory due to bilateral lower extremity amputations. He does have 1 leg prosthesis and will use a walker or wheelchair to "hop" around. He does not report significant dyspnea associated with this type of activity, but can only go short distances due to mechanical difficulties. No associated chest pain. He denies symptoms of palpitations. No significant lightheadedness or dizziness. No recent history of syncope. Currently the patient is feeling well. He states that his abdominal discomfort is essentially resolved although he is only been eating clear liquids. No breathing difficulty at rest. Of note, the patient did undergo a laparoscopic partial colectomy at [facility] in February of this year. 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 He does not recall any specific cardiac evaluation leading up to that surgery nor any cardiac complications subsequently. Allergies Allergy/AdvReac Type Severity Reaction Status Date / Time No Known Allergies Allergy Unknown Verified 06/19/23 09:15 Home Medications Medication Instructions Recorded Confirmed Type aspirin 81 mg tablet,delayed 81 mg PO QAM 05/04/21 07/12/23 History release (Mohit Low Dose Aspirin) atorvastatin 80 mg tablet (Lipitor) 80 mg PO HS #90 tabs 11/15/21 07/12/23 Rx folic acid 1 mg tablet 1 mg PO QAM #30 tabs 06/23/22 07/12/23 Rx levothyroxine 175 mcg tablet 175 mcg PO QAM #90 tabs 07/01/22 07/12/23 Rx (Synthroid) magnesium oxide 400 mg (241.3 mg 400 mg PO QAM #30 tabs 07/07/22 07/12/23 Rx magnesium) tablet acetaminophen 500 mg tablet 1,000 mg PO Q8 PRN Pain 07/18/22 07/12/23 History (Tylenol Extra Strength) nystatin 100,000 unit/gram topical 1 applic topical BID PRN Skin 07/18/22 07/12/23 History powder Irritation metoprolol tartrate 25 mg tablet 12.5 mg (1/2 x 25 mg) PO BID #90 08/08/22 07/12/23 Rx tabs calcitriol 0.25 mcg capsule 0.25 mcg PO QAM #30 caps 08/19/22 07/12/23 Rx (Rocaltrol) clopidogrel 75 mg tablet (Plavix) 75 mg PO QAM #30 tabs 08/19/22 07/12/23 Rx insulin aspart U-100 100 unit/mL 0 unit continuous subcutaneous 11/25/22 07/12/23 History subcutaneous solution (Novolog infusion DAILY U-100 Insulin aspart) menthol 0.44 %-zinc oxide 20.6 % 1 applic EXT TID 11/25/22 07/12/23 History topical ointment (Calmoseptine) zinc oxide 16 % topical ointment 1 applic EXT TID 11/25/22 07/12/23 History (Boudreauxs Butt Paste) pantoprazole 40 mg tablet,delayed 40 mg PO DAILY #90 tabs 12/12/22 07/12/23 Rx release (Protonix) Replacement Brakes for Manual #1 ea 05/12/23 06/16/23 Rx Wheelchair mupirocin 2 % topical ointment 1 applic topical Q12H 05/12/23 07/12/23 History trazodone 100 mg tablet 100 mg PO HS #30 tabs 05/17/23 07/12/23 Rx tamsulosin 0.4 mg capsule 0.4 mg PO DAILY #90 caps 05/18/23 07/12/23 Rx tramadol 50 mg tablet 50 - 100 mg PO Q6 PRN pain 05/22/23 07/12/23 History cyclobenzaprine 10 mg tablet 10 mg PO Q8H PRN Muscle Spasm #90 06/16/23 07/12/23 Rx tabs Mattress (Air or other) #1 ea 06/19/23 Rx Wheelchair (Manual) (Manual #1 ea 06/19/23 Rx Wheelchair) ferrous sulfate 325 mg (65 mg 325 mg PO BID #60 tabs 06/19/23 07/12/23 Rx iron) tablet,delayed release chlorthalidone 25 mg tablet 25 mg PO QAM #90 tabs 07/03/23 07/12/23 Rx ezetimibe 10 mg tablet 10 mg PO DAILY #30 tabs 07/10/23 07/12/23 Rx potassium chloride 20 mEq 20 meq PO BID 07/12/23 07/12/23 History tablet,extended release Patient History Medical History Above knee amputation of left lower extremity Anemia Anemia Aortic stenosis s/p porcine valve replacement (2015) + CABG x1 Follows with [facility] cardio Below-knee amputation of right lower extremity BPH (benign prostatic hyperplasia) CAD (coronary artery disease) s/p CABG x 1 (2015) Candidal diaper rash Cellulitis of perineum Cellulitis of scrotum Clostridium difficile colitis Constipation COPD (chronic obstructive pulmonary disease) DVT prophylaxis Dyslipidemia Folate deficiency GERD (gastroesophageal reflux disease) History of Clostridium difficile infection s/p treatment (2020) History of colon polyps 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) Hx MRSA infection 01/2022 (left heel) Hypertension Hypothyroidism Stage III pressure ulcer Surgical wound, non healing Type I diabetes mellitus, uncontrolled Vitamin D deficiency Surgical History Below-knee amputation of right lower extremity H/O cataract extraction R/L H/O endarterectomy R common femoral (11/2018) H/O vascular surgery Right Femoral to Posterior tibial Prosthetic Bypass Graft(Right) History of ankle surgery LEFT ANKLE +HARDWARE REMOVED History of aortic valve replacement 2015 ([facility]) History of arterial bypass of lower extremity Left femoral to PT composite bypass graft (06/2020) History of cardiac cath x2, most recent 2016 > no stents (subsequent CABG with AVR in 2015); [facility] History of carpal tunnel release R/L History of colonoscopy History of coronary artery bypass graft CABG x1 + AVR (2015) History of esophagogastroduodenoscopy (EGD) History of myringotomy w/tubes bilat. History of open reduction and internal fixation (ORIF) procedure LLE () History of skin graft Split Thickness Skin Graft of Left Lateral Ankle (11/18/20): LMA#5, atraumatic x1 at [facility] History of tonsillectomy History of tooth extraction History of umbilical hernia repair Hx of cystoscopy w/stent placement; stent then removed Hx of surgical procedure Left Leg Wound Debridement and Irrigation S/P femoral-tibial bypass S/P femoropopliteal bypass surgery Right fem-pop bypass graft (01/19/21): Grade 2 view, MAC 3.0, ETT 8.0 at [facility] S/P insertion of iliac artery stent B/L iliac stent placement (2014) 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 Left transmetatarsal amputation (11/23/21): LMA# 5.0 at [facility]. No issues noted per post-op anesthesia progress note. HX 1 SX TO REMOVE ALL TOES LEFT FOOT NOVEMBER 2021 Family History Brother Family history of diabetes mellitus Sister Family history of diabetes mellitus Mother Family history of diabetes mellitus Grandmother (Maternal) Family history of diabetes mellitus Uncle Family hx of colon cancer Colorectal cancer Father Family history of esophageal cancer Sister Family history of diabetes mellitus Other No family history of adverse response to anesthesia Denies family history of Ovarian cancer Prostate cancer Myocardial infarction Breast cancer Social History Smoking Status: Former smoker Tobacco Type: Cigarettes and Cigars Second Hand Exposure: Yes (as a child); Do You Dip or Chew Tobacco: No; Hx Alcohol Use: No Hx Substance Use: No Preferred Language: Divehi Communication Ability: Effective Visual Impairment: No Limitations Hearing Ability: Hard of Hearing Engineering Technologist Required: No Beliefs That Will Affect Care: None marital status: Current Living Situation: Other Current Living Situation Comment: roommate/caregiver current occupational status: disabled How many Children do You have: 2 How many Children do You have Comment: family assists with care, also is part of the waiver program so the pt's roommate is able to assist with care through this program Feels Safe at Home: Yes Childhood Exposure to Second-Hand Smoke: Yes Diet: diabetic Diet Comment: Carb Counts. ([id number], roughly), protein drinks caffeine: Yes (coffee, rarely ) during the past year weight has: remained stable Dental Care, Regularly: No Seatbelt Use: always Sunscreen Use: No Gender Identity: Male Assistive Devices: Prosthesis, Walker and Wheelchair Review of Systems Review of Systems: Per HPI Physical Exam Physical Exam: The patient is alert and oriented. Mood and affect appeared normal. He answered all questions appropriately. HEENT: Pupils are equal and reactive to light and accommodation. Extraocular movements are intact. The sclerae are anicteric. Neuro: Cranial nerves intact Neck: Patient's neck is supple. He has palpable carotid pulses bilaterally without bruits on auscultation. There is no evidence of jugular venous distention. The thyroid is not enlarged. Lungs: Clear to auscultation bilaterally. He has good air movement without use of accessory muscles. No rales wheezes or rhonchi. Cardiac: Heart demonstrates a regular rate and rhythm. Normal S1 and S2. No murmurs on examination. Pulses: The patient has palpable radial pulses bilaterally that are equal in intensity Extremities: There was no evidence of hypoperfusion. There is no cyanosis or clubbing. There is no edema. Skin: I did not appreciate any rashes on examination today. Atrial fibrillati on Results & Data Vital Signs (Past 12 Hours) Vital Signs Temp Pulse Resp BP Pulse Ox O2 Del Method 07/13/23 16:00 36.9 C 88 18 134/70 97 Room Air 07/13/23 11:30 36.8 C 77 20 130/66 96 Room Air 07/13/23 08:32 37.0 C 74 18 144/63 H 97 Room Air Laboratory Results Abnormal Lab Results 07/12/23 07/13/23 07/13/23 20:30 07:44 11:57 POC Glucose 100 H 101 H 73 Diagnostic Findings 1. Echo 07/05/11: Normal LV size and systolic function. Normal wall motion. EF 70%. Moderate to severe LVH. Type I diastolic dysfunction. Moderate aortic luis miguel nosis. CALE 1.2 cm; mean gradient 15 mmHg. 2. Lower extremity arterial duplex 03/17/09: Multilevel occlusive lower extremity PAD. Probable aortoiliac obstruction (moderate). Occluded left SFA within s tents. Probable occlusion of left profunda. 3. Carotid duplex 03/22/13: No evidence of hemodynamically significant stenosis. 4. Echo 02/19/13: Normal LV systolic function, wall motion, size. EF 65%. Mo derate LVH. Type I diastolic dysfunction. Moderate to severe aortic stenosis with trace to mild regurgitation. Mean AV gradient 24 mmHg; dimensionless index < 0.25. 5. Echo 12/24/14: Normal LV size, systolic function. Normal wall motion in visualized areas. EF 65-70%. Severe LVH. Severe aortic stenosis with trace to mild regurgitation. CALE 0.5 cm. Mean AV gradient 48 mmHg. peak philosophy across aortic valve 4.8 m/s. 6. Cardiac catheterization 01/02/2015: Mid LAD 30%. Dominant RCA. Ostial RCA severely stenotic with visually 70% stenosis and ventricularization of the arterial waveform. Distal RCA 40%. 7. Bilateral iliac artery stent placement on 03/31/2015. 8. Echo 04/06/2015: Normal biventricular systolic function. Moderate LVH. Severe aortic stenosis. 9. Cardiac catheterization 10/12/2015: Distal LM CA 20%. Proximal LAD 20%. Mid LAD 50% at bifurcation of D2. Dominant RCA. Ostial RCA 70% with ventricularization of atrial waveform. Heavily calcified ostial RCA. Mid RCA 30%. Distal RCA 40%. 10. PFTs 10/09/2015: Normal spirometry. Normal volumes and DLCO. 11. Aortic valve replacement and CABG x1 at [facility] 10/29/2015: AVR with 25 mm Hill II porcine bioprosthesis. SVG to PDA. (Right LE vein harvest). Was taken back to OR for nonfunctioning chest tube drains. 12. Echo 01/08/2016: Normal LV size and systolic function. EF 65-70%. No definite regional wall motion abnormalities. Mild LVH. Appropriately functioning bioprosthetic aortic valve without significant regurgitation. Pericardial effusion (Trivial) has nearly resolved compared to 11/10/15. 13. Right lower extremity angiography and intervention 05/18/2018: Right common/external iliac 8 x 59 mm bare metal stent placed by Dr. Eason. 14. Right common femoral artery endarterectomy with bovine patch 12/07/2018 (Dr. Eason). 15. Echo 11/13/2019 at [facility]: Normal LV systolic function, size, wall motion. EF 60-65%. Moderate LVH. Mild TR. 16. Left lower extremity arterial bypass June 2020 (Dr. Eason): Left femoral to posterior tibialis artery composite bypass graft. 17. Echo 11/20/2020 [facility]: Normal LV systolic function and wall motion. EF 55- 60%. Mild biatrial dilation. Moderate MAC. Bioprosthetic aortic valve (insufficient Doppler). 18. Right lower extremity arterial bypass 01/19/2021 (Dr. Eason): Femoral artery to posterior all tibial prosthetic bypass graft. 19. Removal of right fem-pop bypass 03/23/2021 (Dr. Eason): Graft was noted to be occluded. There was concern for infection. PG Care Time/CCT Total # of Minutes Spent Total Time Spent with Patient: Total time spent is greater than 50% in coordination of care (as documented) at patient's floor/unit and/or counseling patient: Coding Level of Care Code 86170 INT INP/OBS CARE 3/75MIN Diagnoses Aortic stenosis I35.0 Coronary arteriosclerosis I25.10 Peripheral arterial disease I73.9
--- NOTE | 2023-07-13 19:24 | Communication Note ---
Date of Service: July 13, 2023 Patient chart reviewed after being notified of potential surgical procedure planned. Patient with multiple co-morbidities including CAD, history of AVR, long history of T1DM, HTN, COPD, GERD. Patient underwent a procedure with general anesthesia in november of 2022 without issue. Agree with cardiology recommendations regarding dobutamine stress test to evaluate cardiac function and risk stratification for potential anesthetic. Will follow with later consultation in event surgical procedure is planned and upon completion of recommended cardiac testing.
--- NOTE | 2023-07-13 21:55 | Hospitalist Progress Note ---
Date of Service July 13, 2023 Assessment & Plan (1) Acute cholecystitis: Plan: imaging suggests, possible stone in gb neck or cystic duct, . He has associated nausea with dry heaves however has not had any emesis. Denies fever, chills. no significant LFT abnormalities, mild leukocytosis CT scan shows Mildly distended gallbladder with trace pericholecystic stranding and a small stone within the gallbladder neck or cystic duct. Acute cholecystitis cannot be excluded. right upper quadrant ultrasound Distended and abnormal appearing gallbladder as above with no shadowing gallstones clearly identified. When correlated with today's CT findings the appearance is highly suspicious for acute cholecystitis. Clinical correlation will be essential. If clinically warranted a nuclear hepatobiliary scan would be confirmatory. ] extensive PMH he is high risk for surgery. Last took Plavix 07/11/[address] Alan plan for monday, consult cardio for clearance (2) Diabetes type 1, controlled: Plan: pt typically is a challenge to control , glycemic management recommends to have pt on own insulin pump and manage with dex scanner is npo at present CKD 3 is npo on ivf holding calcitrol (3) Aortic stenosis: Plan: s/p porcine valve replacement and cabg hold plavix/aspirin hold chlorthalidone, hold atorvastatin remains on metoprolol Admission and Anticipated Discharge Date Admission Date: July 12, 2023 Subjective Patient reports no new symptoms. Review of Systems Review of Systems: All systems reviewed & are unremarkable except as noted in HPI & below Physical Exam Constitutional: WD/WN, vitals as above Respiratory: normal respiratory effort, lungs clear to auscultation Cardiovascular: RRR, no murmur, no edema Gastrointestinal (Abdomen): RUQ abd pain Results & Data Results & Data Vital Signs (Past 12 Hours) Vital Signs Temp Pulse Resp BP Pulse Ox O2 Del Method 07/13/23 19:10 36.8 C 70 18 142/79 H 93 Room Air 07/13/23 16:00 36.9 C 88 18 134/70 97 Room Air 07/13/23 11:30 36.8 C 77 20 130/66 96 Room Air PG Care Time/CCT Total # of Minutes Spent Total Time Spent with Patient: Total time spent is greater than 50% in coordination of care (as documented) at patient's floor/unit and/or counseling patient: Coding Level of Care Code 93624 SUB INP/OBS CARE 2/35MIN Diagnoses Acute cholecystitis K81.0 Diabetes type 1, controlled E10.9 Aortic stenosis I35.0
[2023-07-14] MEDS: PIPERACILLIN/TAZOBACTAM 4.5 GM in DEXTROSE 5% MINI-B 100 ML IV SCH ×3 (03:29→20:41)
[2023-07-14] MEDS: ONDANSETRON INJ 2 MG/ML 2 ML VIAL IV PRN ×2 (03:34→04:31)
[2023-07-14] MEDS: traMADol HCL 50 MG TABLET PO PRN ×2 (04:13→13:57)
[2023-07-14] MEDS ORDERED: ONDANSETRON INJ 2 MG/ML 2 ML VIAL IV STA (04:19)
[2023-07-14] MEDS: SODIUM CHLORIDE 0.9% 1,000 ML IV SCH ×2 (04:42→16:36)
[2023-07-14 06:19] LABS: Hematocrit (blood only) 38.1 % (42.0-52.0); Mean Corpuscular Hemoglobin 26.8 pg (25.0-34.0); Mean Corpuscular Hgb Conc 31.5 g/dL (32.0-36.0); Mean Corpuscular Volume 85.2 fL (80.0-100.0); Mean Platelet Volume 9.6 fL (9.4-12.4); Platelet Count 282 K/uL (130-400); RDW Coefficient of Variation 14.3 % (11.5-14.5); RDW Standard Deviation 44.1 fL (36.4-46.3); Red Blood Count 4.47 M/uL (4.70-6.10); White Blood Count 14.05 K/ul (4.8-10.8)
[2023-07-14 07:21] LABS: Calcium 7.8 mg/dl (8.6-10.3); Potassium 2.8 mmol/L (3.5-5.1)
[2023-07-14 07:40] LABS: BUN Creatinine Ratio 9.5 (10-20); Creatinine Clr Calc Pharmacy 111.6 ml/min; Est GFR (Non-African American) 102.7 ml/min
[2023-07-14] MEDS: METOPROLOL TARTRATE 25 MG TAB PO SCH ×2 (08:41→20:29)
[2023-07-14] MEDS: BUTT PASTE (ZINC OXIDE 16%) 171 APPLN/57 GM JAR EXT SCH ×3 (08:41→20:45)
[2023-07-14] MEDS: INSULIN, Rapid-Acting PUMP SCH ×4 (08:41→20:27)
[2023-07-14] MEDS ORDERED: ATROPINE SULFATE 0.1 MG/ML 10ML SYR IV ONE (11:11)
[2023-07-14] MEDS ORDERED: METOPROLOL TARTRATE 1 MG/ML VIAL IV ONE (11:11)
[2023-07-14] MEDS ORDERED: DOBUTamine HCL 12.5 MG/ML 20 ML VIAL IV ONE (11:11)
[2023-07-14] MEDS ORDERED: POTASSIUM CHLORIDE CRTAB 20 MEQ TABCR PO STA (11:27)
[2023-07-14] MEDS: PANTOprazole 40 MG in SYRINGE 0 ML IV SCH (12:27)
--- NOTE | 2023-07-14 12:32 | Surgery Progress Note ---
Date of Service July 14, 2023 Assessment & Plan (1) Acute cholecystitis: Plan: Cholelithiasis with cholecystitis, improving on antibiotics. Cardiology has seen the patient and dobutamine stress test is pending for today. Anesthesia has seen the patient is awaiting cardiology recs. Continue to hold Plavix Follow-up with call center consultant dobutamine stress to Will tentatively plan for laparoscopic cholecystectomy with possible cholangiogram, possibly for Monday If deemed to be too high risk, then may proceed with antibiotics and outpatient follow-up at [facility] or patient transfer to tertiary center He may have a diet as tolerated over the weekend, with plan for n.p.o. after midnight on Monday for surgery Monday risks discussed to include but not limited to bleeding, infection, retained stone, bile leak, open surgery, damage to surrounding structures including bile duct, need for future or more extensive surgery, failure to treat symptoms, and risks of anesthesia. Dr. Diaz covering over the weekend call with questions or concerns (2) Aortic stenosis: (3) Diabetes type 1, controlled: Admission and Anticipated Discharge Date Admission Date: July 12, 2023 Subjective Patient not seen on rounds as he was getting his stress test. Complex medical history including extensive cardiac history along with history of complex perirectal abscess status post laparoscopic diverting loop ileostomy and [facility], admitted with suspected cholelithiasis with cholecystitis. He has been feeling better. Cardiology saw him yesterday and since he was indeterminate risk at the time they ordered a stress test for today. The results of which are pending. He is also been seen by anesthesia. He did have cultures from his urine returned Pseudomonas. Physical Exam Constitutional: WD/WN, vitals as above Gastrointestinal (Abdomen): normal bowel sounds, soft, nontender, no hepatosplenomegaly Results & Data Vital Signs (Past 12 Hours) Vital Signs Temp Pulse Pulse Resp BP Pulse Ox O2 Del Method 07/14/23 08:04 36.7 C 69 20 114/56 L 95 Room Air 07/14/23 07:30 70 07/14/23 03:35 37.1 C 76 18 143/89 H 91 Room Air PG Care Time/CCT Total # of Minutes Spent Total Time Spent with Patient: Total time spent is greater than 50% in coordination of care (as documented) at patient's floor/unit and/or counseling patient: Coding Level of Care Code None Diagnoses Acute cholecystitis K81.0 Aortic stenosis I35.0 Diabetes type 1, controlled E10.9
[2023-07-14] MEDS: POTASSIUM CHLORIDE CRTAB 20 MEQ TABCR PO SCH ×2 (13:42→20:42)
--- NOTE | 2023-07-14 17:18 | XCELERA ---
[id number] \\[id number]
--- NOTE | 2023-07-14 17:28 | Cardiology Progress Note ---
Date of Service July 14, 2023 Assessment & Plan (1) Aortic stenosis: (2) Coronary arteriosclerosis: (3) Peripheral arterial disease: Plan 1. Coronary artery disease: He has a remote history of single-vessel coronary bypass at the time of his aortic valve replacement. This occurred in 2016. He does not appear to have had any ischemic evaluation since that time. No current symptoms suggestive of coronary insufficiency or angina although he is very sedentary due to his lower extremity amputations. He is maintained on a regimen for secondary prevention to include a daily aspirin and high-dose atorvastatin. 2. Aortic stenosis: Status post bioprosthetic valve replacement in 2016. Normal function on echocardiogram performed today. 3. 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 He had several interventions in attempt to improve flow to the lower extremities. No current breast symptoms. Again, treated with aspirin, clopidogrel, atorvastatin and Zetia. 4. Preoperative evaluation: Dobutamine echocardiogram performed today. He had a hypertensive response to dobutamine infusion. This required discontinuation of the test prior to achieving maximal heart rate. However, I think the test was quite adequate to assess for ischemia and there was none at the workload achieved. I think this represents a low risk study. He would seem to be appropriate for surgery with attention to the factors listed below: As with all patients in his demographic, avoidance of significant hypoxia, anemia, hyper or hypotension and tachycardia in the perioperative period is recommended. Admission and Anticipated Discharge Date Admission Date: July 12, 2023 Subjective Patient was seen during his stress test today. He not report any specific complaints. He had not eaten today but had no abdominal discomfort. No breathing difficulty. No chest pain. He felt well during the dobutamine infusion with the exception of some flushing in the face and a sense that his heart was beating faster. Review of Systems Review of Systems: Per HPI Physical Exam Physical Exam: The patient is alert and oriented. Mood and affect appeared normal. He answered all questions appropriately. HEENT: Pupils are equal and reactive to light and accommodation. Extraocular movements are intact. The sclerae are anicteric. Neuro: Cranial nerves intact Lungs: Clear to auscultation bilaterally. He has good air movement without use of accessory muscles. No rales wheezes or rhonchi. Cardiac: Heart demonstrates a regular rate and rhythm. Normal S1 and S2. Faint crescendo systolic murmur Pulses: The patient has palpable radial pulses bilaterally that are equal in intensity Extremities: Bilateral lower extremity amputations Skin: I did not appreciate any rashes on examination today. Results & Data Vital Signs (Past 12 Hours) Vital Signs Temp Pulse Pulse Pulse Resp BP Pulse Ox 07/14/23 16:06 63 07/14/23 15:33 36.9 C 67 18 165/80 H 97 07/14/23 12:43 36.9 C 60 16 116/72 93 07/14/23 08:04 36.7 C 69 20 114/56 L 95 07/14/23 07:30 70 O2 Del Method 07/14/23 16:06 07/14/23 15:33 Room Air 07/14/23 12:43 Room Air 07/14/23 08:04 Room Air 07/14/23 07:30 Laboratory Results Abnormal Lab Results 07/13/23 07/14/23 07/14/23 20:00 05:51 12:36 WBC 14.05 H RBC 4.47 L Hgb 12.0 L Hct 38.1 L MCV 85.2 MCH 26.8 MCHC 31.5 L RDW Std Deviation 44.1 RDW Coeff of Chan 14.3 Plt Count 282 MPV 9.6 Sodium 136 Potassium 2.8 L Chloride 102 Carbon Dioxide 24 Anion Gap 10 BUN 6 Creatinine 0.63 Est Cr Clr Drug Dosing 111.6 Est GFR ( Amer) 119.0 Est GFR (Non-Af Amer) 102.7 BUN/Creatinine Ratio 9.5 L Glucose 236 H POC Glucose 232 H 107 H Calcium 7.8 L 07/14/23 16:17 WBC RBC Hgb Hct MCV MCH MCHC RDW Std Deviation RDW Coeff of Chan Plt Count MPV Sodium Potassium Chloride Carbon Dioxide Anion Gap BUN Creatinine Est Cr Clr Drug Dosing Est GFR ( Amer) Est GFR (Non-Af Amer) BUN/Creatinine Ratio Glucose POC Glucose 81 Calcium PG Care Time/CCT Total # of Minutes Spent Total Time Spent with Patient: Total time spent is greater than 50% in coordination of care (as documented) at patient's floor/unit and/or counseling patient: Coding Level of Care Code 28983 SUB INP/OBS CARE 2/35MIN Diagnoses Aortic stenosis I35.0 Coronary arteriosclerosis I25.10 Peripheral arterial disease I73.9
[2023-07-14] MEDS: MoRPHine SULFATE 2 MG/ML CARP IV PRN ×2 (17:58→23:16)
--- NOTE | 2023-07-14 22:36 | Hospitalist Progress Note ---
Date of Service July 14, 2023 Assessment & Plan (1) Acute cholecystitis: Plan: imaging suggests, possible stone in gb neck or cystic duct, . He has associated nausea with dry heaves however has not had any emesis. Denies fever, chills. no significant LFT abnormalities, mild leukocytosis CT scan shows Mildly distended gallbladder with trace pericholecystic stranding and a small stone within the gallbladder neck or cystic duct. Acute cholecystitis cannot be excluded. right upper quadrant ultrasound Distended and abnormal appearing gallbladder as above with no shadowing gallstones clearly identified. When correlated with today's CT findings the appearance is highly suspicious for acute cholecystitis. Clinical correlation will be essential. If clinically warranted a nuclear hepatobiliary scan would be confirmatory. extensive PMH he is high risk for surgery. Last took Plavix 07/11/[address] Alan plan for monday, consult cardio for clearance Stress test is negative will continue to monitor. (2) Diabetes type 1, controlled: Plan: pt typically is a challenge to control , glycemic management recommends to have pt on own insulin pump and manage with dex scanner CKD 3 holding calcitriol (3) Aortic stenosis: Plan: s/p porcine valve replacement and cabg hold plavix/aspirin hold chlorthalidone, hold atorvastatin remains on metoprolol Admission and Anticipated Discharge Date Admission Date: July 12, 2023 Subjective 68 yo male reports no new symptoms. Review of Systems Review of Systems: All systems reviewed & are unremarkable except as noted in HPI & below Physical Exam Constitutional: WD/WN, vitals as above Respiratory: normal respiratory effort, lungs clear to auscultation Cardiovascular: RRR, no murmur, no edema Results & Data Results & Data Vital Signs (Past 12 Hours) Vital Signs Temp Pulse Pulse Resp BP Pulse Ox O2 Del Method 07/14/23 19:55 36.7 C 66 15 143/84 H 94 Room Air 07/14/23 16:06 63 07/14/23 15:33 36.9 C 67 18 165/80 H 97 Room Air 07/14/23 12:43 36.9 C 60 16 116/72 93 Room Air PG Care Time/CCT Total # of Minutes Spent Total Time Spent with Patient: Total time spent is greater than 50% in coordination of care (as documented) at patient's floor/unit and/or counseling patient: Coding Level of Care Code 24415 SUB INP/OBS CARE 235MIN Diagnoses Acute cholecystitis K81.0 Diabetes type 1, controlled E10.9 Aortic stenosis I35.0
[2023-07-15] MEDS: PIPERACILLIN/TAZOBACTAM 4.5 GM in DEXTROSE 5% MINI-B 100 ML IV SCH ×3 (04:16→20:39)
[2023-07-15] MEDS: MoRPHine SULFATE 2 MG/ML CARP IV PRN ×3 (04:22→17:22)
[2023-07-15] MEDS: SODIUM CHLORIDE 0.9% 1,000 ML IV SCH ×2 (05:32→17:23)
[2023-07-15] MEDS: POTASSIUM CHLORIDE CRTAB 20 MEQ TABCR PO SCH ×3 (08:01→20:29)
[2023-07-15] MEDS: METOPROLOL TARTRATE 25 MG TAB PO SCH ×2 (08:01→20:29)
[2023-07-15] MEDS: BUTT PASTE (ZINC OXIDE 16%) 171 APPLN/57 GM JAR EXT SCH ×3 (08:03→20:28)
[2023-07-15] MEDS: INSULIN, Rapid-Acting PUMP SCH ×4 (08:03→20:39)
[2023-07-15 08:33] LABS: BUN Creatinine Ratio 4.6 (10-20); Calcium 7.9 mg/dl (8.6-10.3); Creatinine Clr Calc Pharmacy 108.2 ml/min; Est GFR (African American) 117.5 ml/min; Est GFR (Non-African American) 101.4 ml/min; Magnesium 1.6 mg/dl (1.7-2.4); Potassium 3.5 mmol/L (3.5-5.1)
--- NOTE | 2023-07-15 10:48 | Surgery Progress Note ---
Date of Service July 15, 2023 Assessment & Plan (1) Acute cholecystitis: Plan: Stable on IV antibiotics. Cleared by cardiology for surgery - current plan is OR early this week. (2) Coronary arteriosclerosis: Plan: Cleared by cardiology for surgery Admission and Anticipated Discharge Date Admission Date: July 12, 2023 Subjective Overall feeling well. Still gets intermittent periods of right upper quadrant pain. Tolerating diet. Stress test was done and cardiology feels his cardiac status is stable for surgery. Physical Exam Constitutional: WD/WN, vitals as above Respiratory: normal respiratory effort, lungs clear to auscultation Gastrointestinal (Abdomen): normal bowel sounds, soft, nontender, no hepatosplenomegaly ileostomy in place Neurologic: awake; no focal motor deficits Results & Data Vital Signs (Past 12 Hours) Vital Signs Temp Pulse Pulse Resp BP Pulse Ox O2 Del Method 07/15/23 07:25 37.2 C 76 16 154/79 H 93 Room Air 07/15/23 07:09 67 07/15/23 04:36 180 H 07/15/23 03:39 36.5 C 68 16 142/65 H 93 Room Air 07/14/23 23:39 36.8 C 67 18 143/77 H 91 Room Air Laboratory Results 07/15/23 07/15/23 07/14/23 Range/Units 07:59 07:16 16:17 Sodium 140 (136-145) mmol/L Potassium 3.5 D (3.5-5.1) mmol/L Chloride 104 (98-107) mmol/L Carbon Dioxide 31 (21-32) mmol/L Anion Gap 5 (3-11) BUN 3 L (6-23) mg/dl Creatinine 0.65 (0.6-1.4) mg/dl Est Cr Clr Drug Dosing 108.2 ml/min Est GFR ( Amer) 117.5 ml/min Est GFR (Non-Af Amer) 101.4 ml/min BUN/Creatinine Ratio 4.6 L (10-20) Glucose 85 (70-99(Fasting)) mg/dl POC Glucose 88 81 (70-99) mg/dl Calcium 7.9 L (8.6-10.3) mg/dl Magnesium 1.6 L (1.7-2.4) mg/dl 07/14/23 Range/Units 12:36 Sodium (136-145) mmol/L Potassium (3.5-5.1) mmol/L Chloride (98-107) mmol/L Carbon Dioxide (21-32) mmol/L Anion Gap (3-11) BUN (6-23) mg/dl Creatinine (0.6-1.4) mg/dl Est Cr Clr Drug Dosing ml/min Est GFR ( Amer) ml/min Est GFR (Non-Af Amer) ml/min BUN/Creatinine Ratio (10-20) Glucose (70-99(Fasting)) mg/dl POC Glucose 107 H (70-99) mg/dl Calcium (8.6-10.3) mg/dl Magnesium (1.7-2.4) mg/dl
[2023-07-15] MEDS: PANTOprazole 40 MG in SYRINGE 0 ML IV SCH (10:50)
--- NOTE | 2023-07-15 23:11 | Hospitalist Progress Note ---
Date of Service July 15, 2023 Assessment & Plan (1) Acute cholecystitis: Plan: imaging suggests, possible stone in gb neck or cystic duct, . He has associated nausea with dry heaves however has not had any emesis. Denies fever, chills. no significant LFT abnormalities, mild leukocytosis CT scan shows Mildly distended gallbladder with trace pericholecystic stranding and a small stone within the gallbladder neck or cystic duct. Acute cholecystitis cannot be excluded. right upper quadrant ultrasound Distended and abnormal appearing gallbladder as above with no shadowing gallstones clearly identified. When correlated with today's CT findings the appearance is highly suspicious for acute cholecystitis. Clinical correlation will be essential. If clinically warranted a nuclear hepatobiliary scan would be confirmatory. extensive PMH he is high risk for surgery. Last took Plavix 07/11/[address] Alan plan for monday, consult cardio for clearance Stress test is negative will continue to monitor. (2) Diabetes type 1, controlled: Plan: pt typically is a challenge to control , glycemic management recommends to have pt on own insulin pump and manage with dex scanner CKD 3 holding calcitriol (3) Aortic stenosis: Plan: s/p porcine valve replacement and cabg hold plavix/aspirin hold chlorthalidone, hold atorvastatin remains on metoprolol Admission and Anticipated Discharge Date Admission Date: July 12, 2023 Subjective Patient reports no new symptoms. Review of Systems Review of Systems: All systems reviewed & are unremarkable except as noted in HPI & below Physical Exam Constitutional: WD/WN, vitals as above Respiratory: normal respiratory effort, lungs clear to auscultation Cardiovascular: RRR, no murmur, no edema Results & Data Results & Data Vital Signs (Past 12 Hours) Vital Signs Temp Pulse Pulse Resp BP Pulse Ox O2 Del Method 07/15/23 19:29 36.9 C 67 16 159/76 H 96 Room Air 07/15/23 16:19 36.8 C 70 16 161/84 H 94 Room Air 07/15/23 15:05 63 07/15/23 11:46 36.8 C 69 16 136/72 97 Room Air PG Care Time/CCT Total # of Minutes Spent Total Time Spent with Patient: Total time spent is greater than 50% in coordination of care (as documented) at patient's floor/unit and/or counseling patient: Coding Level of Care Code 86854 SUB INP/OBS CARE 1/25MIN Diagnoses Acute cholecystitis K81.0 Diabetes type 1, controlled E10.9 Aortic stenosis I35.0
[2023-07-16] MEDS: MoRPHine SULFATE 2 MG/ML CARP IV PRN ×2 (00:25→08:55)
[2023-07-16] MEDS: traMADol HCL 50 MG TABLET PO PRN (03:24)
[2023-07-16] MEDS: PIPERACILLIN/TAZOBACTAM 4.5 GM in DEXTROSE 5% MINI-B 100 ML IV SCH ×3 (04:50→19:43)
[2023-07-16] MEDS: SODIUM CHLORIDE 0.9% 1,000 ML IV SCH ×2 (06:28→17:43)
[2023-07-16] MEDS: INSULIN, Rapid-Acting PUMP SCH ×4 (08:29→21:06)
[2023-07-16] MEDS: METOPROLOL TARTRATE 25 MG TAB PO SCH ×2 (08:31→20:18)
[2023-07-16] MEDS: BUTT PASTE (ZINC OXIDE 16%) 171 APPLN/57 GM JAR EXT SCH ×3 (08:31→20:20)
--- NOTE | 2023-07-16 11:34 | Surgery Progress Note ---
Date of Service July 16, 2023 Assessment & Plan (1) Acute cholecystitis: Plan: Stable on IV antibiotics. Cleared by cardiology for surgery - current plan is OR early this week. (2) Coronary arteriosclerosis: Plan: Cleared by cardiology for surgery Admission and Anticipated Discharge Date Admission Date: July 12, 2023 Subjective Patient reports no new symptoms. Cleared by cardiology. Physical Exam Constitutional: WD/WN, vitals as above Gastrointestinal (Abdomen): normal bowel sounds, soft, nontender, no hepatosplenomegaly Neurologic: awake; no focal motor deficits Results & Data Vital Signs (Past 12 Hours) Vital Signs Temp Pulse Pulse Resp BP Pulse Ox O2 Del Method 07/16/23 07:25 36.8 C 75 21 148/85 H 94 Room Air 07/16/23 07:06 79 07/16/23 04:00 81 156/81 H 07/16/23 03:29 36.6 C 76 16 175/93 H 96 Room Air
[2023-07-16] MEDS: PANTOprazole 40 MG in SYRINGE 0 ML IV SCH (11:44)
--- NOTE | 2023-07-16 11:49 | Hospitalist Progress Note ---
Date of Service July 16, 2023 Assessment & Plan (1) Acute cholecystitis: Plan: Anticipate laparoscopic cholecystectomy tomorrow, July 17. He has been cleared for surgery by cardiology. Continue supportive care. Clear liquid diet for now along with IV fluids. He remains on intravenous Zosyn. (2) Diabetes type 1, controlled: Plan: pt typically is a challenge to control , glycemic management recommends to have pt on own insulin pump and manage with dex scanner (3) Aortic stenosis: Plan: s/p porcine valve replacement and cabg. holding aspirin and Plavix at this time. Continue metoprolol. (4) Chronic kidney disease, stage III (moderate): Plan: Monitor intake and output. Serial labs Plan Anticipate laparoscopic cholecystectomy tomorrow, July 17. Discharge to home when cleared by surgery. Admission and Anticipated Discharge Date Admission Date: July 12, 2023 Subjective Alert and oriented. Afebrile with stable vital signs. Probable laparoscopic cholecystectomy tomorrowJuly 17. He has been cleared by cardiology. Review of Systems 2 Review of Systems: Constitutional-no fever or chills ENT-no blurred vision, no double vision, no epistaxis, no sore throat Respiratory-no cough, no wheezing, no shortness of breath Cardiac-no palpitations, no chest pain, no syncope GI-no nausea, vomiting, diarrhea, melena, hematochezia -no urinary retention, no urinary incontinence, no dysuria, no hematuria Musculoskeletal-no joint pain, no muscle tenderness Skin-no bruising, no rashes, no pruritus Neuro-no isolated weakness, no paresthesia, no weakness Psych-no depression, no anxiety Physical Exam 2 Physical Exam: General-alert and oriented x3, no fevers, no chills HEENT-head atraumatic and normocephalic, pupils equal and reactive to light, extraocular muscles intact Neck-no lymphadenopathy or thyromegaly, trachea midline Chest-clear to auscultation percussion. No rales wheezing or rhonchi Cardiac-regular rate and rhythm, normal S1 and S2 Abdomen-normal bowel sounds, no hepatosplenomegaly. Right upper quadrant is tender with deep palpation. No masses. No rebound or guarding Extremities-no cyanosis, clubbing, or edema Neuro-cranial nerves II through XII intact, motor and sensory function within normal limits, strength symmetrical, no focal deficits Psych-normal affect, normal mood Results & Data Results & Data Vital Signs (Past 12 Hours) Vital Signs Temp Pulse Pulse Resp BP Pulse Ox O2 Del Method 07/16/23 07:25 36.8 C 75 21 148/85 H 94 Room Air 07/16/23 07:06 79 07/16/23 04:00 81 156/81 H 07/16/23 03:29 36.6 C 76 16 175/93 H 96 Room Air Laboratory Results 07/14/23 05:51 07/15/23 07:16 PG Care Time/CCT Total # of Minutes Spent Total Time Spent with Patient: Total time spent is greater than 50% in coordination of care (as documented) at patient's floor/unit and/or counseling patient: Coding Level of Care Code 78418 SUB INP/OBS CARE 3/50MIN Diagnoses Acute cholecystitis K81.0 Diabetes type 1, controlled E10.9 Aortic stenosis I35.0 Chronic kidney disease, stage III (moderate) N18.30
[2023-07-16] MEDS: MoRPHine SULFATE 4 MG/ML 1 ML CARP\\VIAL IV PRN ×2 (14:35→19:56)
[2023-07-17] MEDS: traMADol HCL 50 MG TABLET PO PRN (00:50)
[2023-07-17] MEDS: PIPERACILLIN/TAZOBACTAM 4.5 GM in DEXTROSE 5% MINI-B 100 ML IV SCH ×3 (03:24→23:24)
[2023-07-17] MEDS: MoRPHine SULFATE 4 MG/ML 1 ML CARP\\VIAL IV PRN ×3 (04:10→16:09)
[2023-07-17] MEDS ORDERED: INSULIN ASPART PER UNIT CHARGE SC SCH (06:00)
[2023-07-17] MEDS: SODIUM CHLORIDE 0.9% 1,000 ML IV SCH ×2 (06:04→23:25)
[2023-07-17] MEDS: INSULIN, Rapid-Acting PUMP SCH ×4 (06:04→20:40)
[2023-07-17 06:45] LABS: Basophils # (auto) 0.09 K/uL (0.00-0.20); Basophils % (auto) 0.8 %; Eosinophils # (auto) 1.19 K/uL (0.00-0.50); Eosinophils % (auto) 10.3 %; Hematocrit (blood only) 39.5 % (42.0-52.0); Hemoglobin 12.7 g/dl (14.0-18.0); Immature Granulocytes # (auto) 0.04 K/uL (0.01-0.20); Immature Granulocytes % (auto) 0.3 %; Lymphocytes # (auto) 2.03 K/uL (1.20-3.40); Lymphocytes % (auto) 17.6 %; Mean Corpuscular Hemoglobin 27.4 pg (25.0-34.0); Mean Corpuscular Hgb Conc 32.2 g/dL (32.0-36.0); Mean Corpuscular Volume 85.3 fL (80.0-100.0); Mean Platelet Volume 9.4 fL (9.4-12.4); Monocytes # (auto) 0.84 K/uL (0.11-0.59); Monocytes % (auto) 7.3 %; Neutrophils # (auto) 7.36 K/uL (1.40-6.50); Neutrophils % (auto) 63.7 %; Platelet Count 322 K/uL (130-400); RDW Coefficient of Variation 14.6 % (11.5-14.5); Red Blood Count 4.63 M/uL (4.70-6.10); White Blood Count 11.55 K/ul (4.8-10.8)
[2023-07-17] MEDS ORDERED: ACETAMINOPHEN 1000 MG/100 ML IV IV ONE (06:59)
[2023-07-17 07:02] LABS: BUN Creatinine Ratio 2.4 (10-20); Calcium 7.6 mg/dl (8.6-10.3); Creatinine Clr Calc Pharmacy 82.7 ml/min; Est GFR (African American) 105.2 ml/min; Est GFR (Non-African American) 90.8 ml/min; Potassium 3.3 mmol/L (3.5-5.1)
[2023-07-17] MEDS ORDERED: MIDAZOLAM HCL 1 MG/ML 2ML VIAL ONE (08:19)
[2023-07-17] MEDS ORDERED: fentaNYL citrate PF 100 MCG/2 ML VIAL ONE ×2 (08:19→12:15)
[2023-07-17] MEDS ORDERED: DEXAMETHASONE SOD INJ 4 MG/ML VIAL ONE (08:19)
[2023-07-17] MEDS ORDERED: PROPOFOL IV EMULSION 10 MG/ML 20 ML VIAL IV ONE (08:19)
[2023-07-17] MEDS ORDERED: ONDANSETRON INJ 2 MG/ML 2 ML VIAL ONE (08:19)
[2023-07-17] MEDS ORDERED: LIDOCAINE 2% 2 ML VIAL/AMP(20MG/ML) INFIL ONE (08:19)
[2023-07-17] MEDS ORDERED: ROCURONIUM BROMIDE 10 MG/ML 5 ML VIAL IV ONE (08:19)
[2023-07-17] MEDS: METOPROLOL TARTRATE 25 MG TAB PO SCH ×2 (08:47→20:45)
[2023-07-17] MEDS: BUTT PASTE (ZINC OXIDE 16%) 171 APPLN/57 GM JAR EXT SCH ×3 (08:48→20:45)
--- NOTE | 2023-07-17 09:33 | Anesthesiology Consultation ---
Date of Service July 17, 2023 Assessment & Plan (1) Encounter for pre-operative examination: Chart Review Chart Review: Acceptable Risk for Surgery History Surgery Operation Date: 07/17/23 10:50 Proposed Procedures p Laparoscopic Cholecystectomy Possible Robotic - Markus Dawson DO, FACS Height/Weight Height: 5 ft 8 in Weight: 78.1 kg Allergies Allergy/AdvReac Type Severity Reaction Status Date / Time No Known Allergies Allergy Unknown Verified 06/19/23 09:15 Medications Home Medications Medication Instructions Recorded Confirmed Last Taken aspirin 81 mg tablet,delayed 81 mg PO QAM 05/04/21 07/12/23 07/11/23 release (Mohit Low Dose Aspirin) atorvastatin 80 mg tablet (Lipitor) 80 mg PO HS #90 tabs 11/15/21 07/12/23 07/11/23 folic acid 1 mg tablet 1 mg PO QAM #30 tabs 06/23/22 07/12/23 07/11/23 levothyroxine 175 mcg tablet 175 mcg PO QAM #90 tabs 07/01/22 07/12/23 07/11/23 (Synthroid) magnesium oxide 400 mg (241.3 mg 400 mg PO QAM #30 tabs 07/07/22 07/12/23 1 Week Ago magnesium) tablet ~07/05/23 acetaminophen 500 mg tablet 1,000 mg PO Q8 PRN Pain 07/18/22 07/12/23 Unknown (Tylenol Extra Strength) nystatin 100,000 unit/gram topical 1 applic topical BID PRN Skin 07/18/22 07/12/23 Unknown powder Irritation metoprolol tartrate 25 mg tablet 12.5 mg (1/2 x 25 mg) PO BID #90 08/08/22 07/12/23 07/11/23 tabs calcitriol 0.25 mcg capsule 0.25 mcg PO QAM #30 caps 08/19/22 07/12/23 07/11/23 (Rocaltrol) clopidogrel 75 mg tablet (Plavix) 75 mg PO QAM #30 tabs 08/19/22 07/12/23 07/11/23 insulin aspart U-100 100 unit/mL 0 unit continuous subcutaneous 11/25/22 07/12/23 07/11/23 subcutaneous solution (Novolog infusion DAILY U-100 Insulin aspart) menthol 0.44 %-zinc oxide 20.6 % 1 applic EXT TID 11/25/22 07/12/23 07/11/23 topical ointment (Calmoseptine) zinc oxide 16 % topical ointment 1 applic EXT TID 11/25/22 07/12/23 07/11/23 (Boudreauxs Butt Paste) pantoprazole 40 mg tablet,delayed 40 mg PO DAILY #90 tabs 12/12/22 07/12/23 07/11/23 release (Protonix) Replacement Brakes for Manual #1 ea 05/12/23 06/16/23 Unknown Wheelchair mupirocin 2 % topical ointment 1 applic topical Q12H 05/12/23 07/12/23 07/11/23 trazodone 100 mg tablet 100 mg PO HS #30 tabs 05/17/23 07/12/23 07/11/23 tamsulosin 0.4 mg capsule 0.4 mg PO DAILY #90 caps 05/18/23 07/12/23 07/11/23 tramadol 50 mg tablet 50 - 100 mg PO Q6 PRN pain 05/22/23 07/12/23 Unknown cyclobenzaprine 10 mg tablet 10 mg PO Q8H PRN Muscle Spasm #90 06/16/23 07/12/23 Unknown tabs Mattress (Air or other) #1 ea 06/19/23 Unknown Wheelchair (Manual) (Manual #1 ea 06/19/23 Unknown Wheelchair) ferrous sulfate 325 mg (65 mg 325 mg PO BID #60 tabs 06/19/23 07/12/23 07/11/23 iron) tablet,delayed release chlorthalidone 25 mg tablet 25 mg PO QAM #90 tabs 07/03/23 07/12/23 07/11/23 ezetimibe 10 mg tablet 10 mg PO DAILY #30 tabs 07/10/23 07/12/23 07/11/23 potassium chloride 20 mEq 20 meq PO BID 07/12/23 07/12/23 07/11/23 tablet,extended release Active Medications Generic Name Dose Route Start Last Admin Trade Name Freq PRN Reason Stop Dose Admin Piperacillin Sod/Tazobactam 100 mls @ 25 mls/hr 07/12/23 12:00 07/17/23 07:24 Sod 4.5 gm/ Dextrose IV 07/22/23 11:59 Infused Q8H LIZZY Infusion Protocol Sodium Chloride 1,000 mls @ 80 mls/hr 07/12/23 15:30 07/17/23 06:04 Nss IV 08/11/23 15:29 80 mls/hr .[id number] LIZZY Administration Pantoprazole Sodium 40 mg/ 10 mls @ 5 mls/min 07/13/23 11:00 07/16/23 11:44 Syringe IV 08/12/23 10:59 5 mls/min DAILY@1100 LIZZY Administration Insulin Aspart 1 each 07/17/23 06:00 07/17/23 06:04 Insulin, Rapid-Acting Pump N/A 08/16/23 05:59 Not Given Q6 [facility] Protocol Metoprolol Tartrate 12.5 mg 07/12/23 10:00 07/17/23 08:47 Metoprolol Tartrate 25 Mg Tab PO 08/11/23 09:59 12.5 mg BID LIZZY Administration Morphine Sulfate 2 mg 07/12/23 07:44 07/16/23 08:55 Morphine Sulfate 2 Mg/Ml Carp IV 07/26/23 07:43 2 mg Q4 PRN Administration Moderate Pain (Scale 4, 5, 6) Morphine Sulfate 4 mg 07/12/23 07:44 07/17/23 08:47 Morphine Sulfate 4 Mg/Ml 1 Ml Carp\Vial IV 07/26/23 07:43 4 mg Q4 PRN Administration Severe Pain (Scale 7, 8, 9,10) Ondansetron HCl 4 mg 07/12/23 09:45 07/14/23 03:34 Ondansetron Inj 2 Mg/Ml 2 Ml Vial IV 08/11/23 09:44 4 mg Q6H PRN Administration Nausea Petrolatum 1 appln 07/12/23 14:00 07/17/23 08:48 Butt Paste (Zinc Oxide 16%) 171 Appln/57 Gm Jar EXT 08/11/23 13:59 1 appln TID LIZZY Administration Tramadol HCl 50 mg 07/12/23 23:16 07/17/23 00:50 Tramadol Hcl 50 Mg Tablet PO 08/11/23 23:15 50 mg Q6H PRN Administration Pain NPO Date Last Intake of Fluids: 07/17/23 Time Last Intake of Fluids: 04:00 Last Intake of Fluids Comment: SIPS Past Medical History Medical History Cellulitis of perineum Cellulitis of scrotum BPH (benign prostatic hyperplasia) Anemia Above knee amputation of left lower extremity Surgical wound, non healing Stage III pressure ulcer 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) Hx MRSA infection 01/2022 (left heel) Type I diabetes mellitus, uncontrolled Candidal diaper rash History of colon polyps History of Clostridium difficile infection s/p treatment (2020) Below-knee amputation of right lower extremity Clostridium difficile colitis DVT prophylaxis Folate deficiency Constipation Anemia COPD (chronic obstructive pulmonary disease) GERD (gastroesophageal reflux disease) Dyslipidemia Hypertension Hypothyroidism Vitamin D deficiency Aortic stenosis s/p porcine valve replacement (2015) + CABG x1 [place] [facility] [place] (coronary artery disease) s/p CABG x 1 (2015) Past Family History Family History Brother Family history of diabetes mellitus Sister Family history of diabetes mellitus Mother Family history of diabetes mellitus Grandmother (Maternal) Family history of diabetes mellitus Uncle Family hx of colon cancer Colorectal cancer Father Family history of esophageal cancer Sister Family history of diabetes mellitus Other No family history of adverse response to anesthesia Denies family history of Ovarian cancer Prostate cancer Myocardial infarction Breast cancer Past Surgical History Surgical History Hx of cystoscopy w/stent placement; stent then removed S/P femoral-tibial bypass Below-knee amputation of right lower extremity H/O vascular surgery Right Femoral to Posterior tibial Prosthetic Bypass Graft(Right) History of skin graft Split Thickness Skin Graft of Left Lateral Ankle (11/18/20): LMA#5, atraumatic x1 at [facility] Hx of surgical procedure Left Leg Wound Debridement and Irrigation History of arterial bypass of lower extremity Left femoral to PT composite bypass graft (06/2020) History of carpal tunnel release R/L History of tooth extraction History of tonsillectomy History of myringotomy w/tubes bilat. S/P femoropopliteal bypass surgery Right fem-pop bypass graft (01/19/21): Grade 2 view, MAC 3.0, ETT 8.0 at [facility] History of cardiac cath x2, most recent 2016 > no stents (subsequent CABG with AVR in 2015); [facility] History of umbilical hernia repair S/P insertion of iliac artery stent B/L iliac stent placement (2014) H/O endarterectomy R common femoral (11/2018) History of open reduction and internal fixation (ORIF) procedure LLE () History of colonoscopy History of esophagogastroduodenoscopy (EGD) History of aortic valve replacement 2015 ([facility] [place] [place] H/O cataract extraction R/L History of ankle surgery LEFT ANKLE +HARDWARE REMOVED History of coronary artery bypass graft CABG x1 + AVR (2015) 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 Left transmetatarsal amputation (11/23/21): LMA# 5.0 at [facility]. No issues noted per post-op anesthesia progress note. HX 1 SX TO REMOVE ALL TOES LEFT FOOT NOVEMBER 2021 Social History Smoking Status: Former smoker tobacco type: cigarettes Do You Dip or Chew Tobacco: No Hx Alcohol Use: No Alcohol type: beer alcohol intake frequency: holidays/special occasions only Hx Substance Use: No substance use type: does not use Physical Exam Vital Signs Last Vital Signs Temp 36.5 C 07/17/23 08:05 Pulse 96 H 07/17/23 08:05 Resp 19 07/17/23 08:05 BP 151/76 H 07/17/23 08:05 Pulse Ox 96 07/17/23 08:05 O2 Del Method Room Air 07/17/23 08:05 Testing Laboratory Results 07/17/23 05:46 07/17/23 05:46 Urine Color Yellow 07/12/23 06:30 Urine Appearance Cloudy (Clear) A 07/12/23 06:30 Urine pH 6.5 (4.5-7.5) 07/12/23 06:30 Ur Specific [place] 1.012 (1.000-1.030) 07/12/23 06:30 Urine Protein Negative (Negative) 07/12/23 06:30 Urine Glucose (UA) Negative (Negative) 07/12/23 06:30 Urine Ketones Trace (Negative) H 07/12/23 06:30 Urine Nitrite Negative (Negative) 07/12/23 06:30 Ur Leukocyte Esterase 3+ (Negative) H 07/12/23 06:30 Urine WBC (Auto) >30 /hpf (0-5) H 07/12/23 06:30 Urine RBC (Auto) 0-4 /hpf (0-4) 07/12/23 06:30 U Hyaline Cast (Auto) 0 /lpf (0-5) 07/12/23 06:30 U Epithel Cells (Auto) 5-10 /lpf (0-5) H 07/12/23 06:30 Urine Bacteria (Auto) 1+ (Negative) H 07/12/23 06:30 07/12/23 06:30 Urine Culture - Final Urine,Clean Catch Pseudomonas species Proteus mirabilis 07/17/23 05:56 POC Glucose 99 Electrocardiogram Date: 07/12/23 Findings: + NSR @ (76), + RBBB and + MA (possible inferior) Stress Test Date: 07/14/23 Type: DSE Findings: + WNL Resting EF: 55-60% Resting LV Function: normal Valvular Disease: AI (mild) and MS (mild)
[2023-07-17] MEDS ORDERED: INDOCYANINE GREEN 25 MG VIAL INJ ONE (09:34)
--- NOTE | 2023-07-17 09:45 | Surgery Progress Note ---
Date of Service July 17, 2023 Assessment & Plan (1) Acute cholecystitis: Plan: Cholelithiasis with suspected cholecystitis. Cleared by cardiology for surgery. plan for laparoscopic cholecystectomy with possible cholangiogram, possible robotic risks discussed to include but not limited to bleeding, infection, retained stone, bile leak, open surgery, damage to surrounding structures including bile duct, need for future or more extensive surgery, failure to treat symptoms, and risks of anesthesia. (2) Aortic stenosis: (3) COPD (chronic obstructive pulmonary disease): (4) Coronary arteriosclerosis: (5) Diabetic peripheral neuropathy associated with type 1 diabetes mellitus: Admission and Anticipated Discharge Date Admission Date: July 12, 2023 Subjective Six 8-year-old male with multiple medical problems admitted with cholelithiasis and suspected cholecystitis. He has had his Plavix on hold since last week. Stress test on Monday showed variations in blood pressure but no evidence of reversible ischemia. He has been deemed to be an acceptable risk for anesthesia from cardiology. No events over the weekend. Physical Exam Constitutional: WD/WN, vitals as above + obese Respiratory: normal respiratory effort, lungs clear to auscultation Cardiovascular: RRR, no murmur, no edema Gastrointestinal (Abdomen): normal bowel sounds, soft, nontender, no hepatosplenomegaly Inspection/Auscultation: + abdominal surgical scar (Port sites well-healed) Left lower quadrant ostomy Results & Data Vital Signs (Past 12 Hours) Vital Signs Temp Pulse Pulse Pulse Resp BP Pulse Ox 07/17/23 09:21 37.2 C 74 18 155/86 H 97 07/17/23 08:05 36.5 C 96 H 68 19 151/76 H 96 07/17/23 06:46 66 07/17/23 03:02 36.8 C 70 18 147/78 H 93 07/16/23 22:50 36.6 C 77 20 158/83 H 92 07/16/23 22:01 64 O2 Del Method 07/17/23 09:21 Room Air 07/17/23 08:05 Room Air 07/17/23 06:46 07/17/23 03:02 Room Air 07/16/23 22:50 Room Air 07/16/23 22:01 Diagnostic Findings Laboratory Results - last 24 hr 07/17/23 07/17/23 05:46 05:56 WBC 11.55 H RBC 4.63 L Hgb 12.7 L Hct 39.5 L MCV 85.3 MCH 27.4 MCHC 32.2 RDW Std Deviation 45.0 RDW Coeff of Chan 14.6 H Plt Count 322 MPV 9.4 Immature Gran % (Auto) 0.3 Neut % (Auto) 63.7 Lymph % (Auto) 17.6 [place] % (Auto) 7.3 Eos % (Auto) 10.3 Baso % (Auto) 0.8 Neut # (Auto) 7.36 H Lymph # (Auto) 2.03 [place] # (Auto) 0.84 H Eos # (Auto) 1.19 H Baso # (Auto) 0.09 Immature Gran # (Auto) 0.04 Sodium 139 Potassium 3.3 L Chloride 103 Carbon Dioxide 32 Anion Gap 4 BUN 2 L Creatinine 0.85 Est Cr Clr Drug Dosing 82.7 Est GFR ( Amer) 105.2 Est GFR (Non-Af Amer) 90.8 BUN/Creatinine Ratio 2.4 L Glucose 102 H POC Glucose 99 Calcium 7.6 L PG Care Time/CCT Total # of Minutes Spent Total Time Spent with Patient: Total time spent is greater than 50% in coordination of care (as documented) at patient's floor/unit and/or counseling patient: Coding Level of Care Code 20523 SUB INP/OBS CARE 235MIN Diagnoses Acute cholecystitis K81.0 Aortic stenosis I35.0 COPD (chronic obstructive pulmonary disease) J44.9 Coronary arteriosclerosis I25.10 Diabetic peripheral neuropathy associated with type 1 diabetes mellitus E10.42
[2023-07-17] MEDS ORDERED: BUPIVACAINE 0.5 % 5 MG/1 ML MPF 30ML VIAL ONE (10:14)
--- NOTE | 2023-07-17 13:03 | Operative Report ---
PG Post Operative Report Pre & Post Diagnosis Operation Date: 07/17/23 10:50 Pre-Op Diagnosis: Acute cholecystitis Post-Op Diagnosis: Acute on chronic cholecystitis I identified the patient and participated in the time-out.: Yes Procedure Operation Date: 07/17/23 10:50 Actual Procedures p Robotic assisted Laparoscopic Cholecystectomy(Not Applicable) - Markus Dawson DO, MAGALY Surgeon Markus Dawson DO, FACS House Carpenter Fany Pagan Estimated Blood Loss 25 Findings Consistent with Post-Op Diagnosis Minimal adhesions identified in lower abdomen. Transverse colon adhesed to liver and falciform ligament and right upper quadrant. Taken down laparoscopically. Omentum adhesed to significantly distended gallbladder. Robotic cholecystectomy performed. Critical view of safety obtained, cystic artery doubly clipped and divided. Cystic duct dilated, accommodated 1 clip, but no further clips could be placed, divided with white loaded robotic stapler. Good hemostasis. Specimens Gallbladder Anesthesia Type General Complications none Disposition Accompanied Patient To Recovery: No Disposition: Recovery Room Indications 68-year-old male with multiple medical problems and diverting colostomy presented with signs and symptoms of cholelithiasis with acute cholecystitis. He was admitted to the medicine service and treated for several days with antibiotics while his Plavix wore off. He was cleared by cardiology after stress test. Plan for laparoscopic cholecystectomy with possible cholangiogram, possible robotic. The risks of the procedure were discussed, all questions were answered, and the patient agreed to proceed with surgery as planned. Description of Procedure The patient was properly identified, consented, and taken to the operating room where he was placed in the supine position. 2.5 mg of indocyanine green were administered IV approximately 45 min prior to the surgery. General endotracheal anesthesia was induced. SCDs and a safety belt were placed. Preoperative antibiotics were administered. The patient's insulin pump and continuous glucose monitor were covered with Tegaderm. The left lower quadrant colostomy device was removed, and the area was cleaned. A 4 x 4 piece of gauze was then placed over the colostomy. The patient's abdomen was prepped, and a large Ioban was placed over the entire abdomen. The patient was then draped in the standard sterile fashion. A surgical timeout was performed and all parties were in agreement that this was the correct patient and procedure to be performed and we continued as planned. An incision was made in the right upper quadrant and the Veress needle was inserted. Saline drop test confirmed entry into the abdomen. The abdomen was insufflated with carbon dioxide to the patient tolerated without incident. Veress needle was removed and the abdomen was entered using the Optiview technique and a 5 mm camera with a 5 mm trocar. The introducer was removed and the abdomen inspected. No damage from initial trocar placement or Veress needle placement was identified. There were no significant abnormalities in the 4 quadrants of the abdomen. The left lower quadrant colostomy was identified and appeared healthy and intact. There was some transverse colon adhesed to the falciform ligament and liver in the right upper quadrant. 8 mm robotic ports were then placed x3. 1 was placed in the left upper quadrant, one was placed just to the left of midline above the umbilicus, and a third was placed in the right lateral abdomen. The patient was placed in reverse Trendelenburg position and rotated towards the left. The adhesions of the transverse colon to the falciform ligament and liver were taken down with sharp dissection using the laparoscopic scissors. Once this was complete, we were able to identify the gallbladder. The robot was then docked and the camera and robotic instruments were inserted. The gallbladder was extremely large and distended and showed signs of acute on chronic cholecystitis. A small hole was placed near the dome of the gallbladder and the suction was inserted and the gallbladder was decompressed to allow for further retraction. There was some adhesions of omentum to the gallbladder along its entire course and these were taken down with combination of cautery and blunt dissection. The dome of the gallbladder was grasped by the clerical assistant and retracted towards the left upper quadrant and the infundibulum was retracted toward the right lower quadrant revealing Calot's triangle. Peritoneal attachments were taken down with electrocautery and blunt dissection. The cystic duct and artery were circumferentially dissected. A window of safety was obtained showing the cystic duct entering the gallbladder with no aberrant structures noted. We were able to identify the cystic duct utilizing the ICG. The cystic artery was doubly clipped and divided. A clip was placed on the c ystic duct. Attempts to place further clips were unsuccessful as the cystic duct was quite distended. 1 of these clips did come off and was not retrieved. The 8 mm left upper quadrant robotic port was removed and a 12 mm robotic port was placed. The cystic duct was then divided utilizing a white loaded robotic stapler. The gallbladder was then lifted off the gallbladder fossa with electrocautery. The right upper quadrant was irrigated and hemostasis was found to be good. The gallbladder was placed in an Endo Catch bag and removed through the one of the port sites. The instruments were removed and the robot was undocked. The fascia of the 12 mm port site was closed utilizing the Scottie- Lester device and a [id number] 0 Vicryl suture. The trochars were removed and the abdomen was allowed to collapse. The skin of all ports was closed with 4-0 Monocryl subcuticular sutures. Dermabond was placed over the wounds. The patient was extubated in the operating room and taken to the PACU where he recovered without apparent incident. All sponge, instrument and needle counts were correct at the conclusion of the procedure. The patient tolerated the procedure well. The nurse practitioner was present and scrubbed for the entirety of the case and was essential in positioning the patient, prepping and draping, retraction and exposure, driving the laparoscope, exchange of the robotic instruments removal of the gallbladder, closure of the incisions, and placement of the dressings. I attest to the content of the Intraoperative Record and any orders documented therein. Any exceptions are noted below.
[2023-07-17] MEDS ORDERED: ePHEDrine sulfate 50 MG/ML AMP IV PRN (14:03)
[2023-07-17] MEDS ORDERED: ATROPINE SULFATE 0.1 MG/ML 10ML SYR IV PRN (14:03)
[2023-07-17] MEDS ORDERED: fentaNYL citrate PF 100 MCG/2 ML VIAL IV PRN (14:03)
--- NOTE | 2023-07-17 14:03 | Anesthesiology Progress Note ---
Date of Service July 17, 2023 Anesthesia Post Procedure Vital Signs Vital Signs: Temp Pulse Pulse Pulse Resp BP Pulse Ox 07/17/23 13:55 71 18 141/74 H 97 07/17/23 13:45 36.2 C L 74 17 148/74 H 97 07/17/23 13:35 36.2 C L 74 18 147/86 H 98 07/17/23 13:25 75 19 129/86 99 07/17/23 13:15 84 18 147/94 H 99 07/17/23 13:05 36.0 C L 76 18 143/77 H 97 07/17/23 09:21 37.2 C 74 18 155/86 H 97 07/17/23 08:05 36.5 C 96 H 68 19 151/76 H 96 07/17/23 06:46 66 07/17/23 03:02 36.8 C 70 18 147/78 H 93 07/16/23 22:50 36.6 C 77 20 158/83 H 92 07/16/23 22:01 64 07/16/23 19:27 36.6 C 74 18 128/91 95 07/16/23 16:09 69 07/16/23 15:51 36.6 C 67 19 137/76 94 O2 Del Method O2 Flow Rate 07/17/23 13:55 Nasal Cannula 4 07/17/23 13:45 Nasal Cannula 4 07/17/23 13:35 Nasal Cannula 4 07/17/23 13:25 Nasal Cannula 4 07/17/23 13:15 Oxymask 5 07/17/23 13:05 Oxymask 5 07/17/23 09:21 Room Air 07/17/23 08:05 Room Air 07/17/23 06:46 07/17/23 03:02 Room Air 07/16/23 22:50 Room Air 07/16/23 22:01 07/16/23 19:27 Room Air 07/16/23 16:09 07/16/23 15:51 Room Air Pain Intensity Back: Pain Intensity: 3 Bilateral Buttock: Pain Intensity: 3 Transfer of Care Handoff Completed per policy Notes Mental Status: alert / awake / arousable Patient Amnestic to Procedure: Yes Nausea / Vomiting: adequately controlled Pain: adequately controlled Airway Patency, RR, SpO2: stable & adequate BP & HR: stable & adequate Hydration State: stable & adequate Anesthetic Complications: no major complications apparent
[2023-07-17] MEDS: PANTOprazole 40 MG in SYRINGE 0 ML IV SCH (15:30)
[2023-07-17] MEDS ORDERED: Nursing to Pharmacy Communication SCH ×3 (16:15→21:45)
--- NOTE | 2023-07-17 21:47 | Hospitalist Progress Note ---
Date of Service July 17, 2023 Assessment & Plan (1) Acute cholecystitis: Plan: Anticipate laparoscopic cholecystectomy tomorrow, July 17. He has been cleared for surgery by cardiology. Continue supportive care. Clear liquid diet for now along with IV fluids. He remains on intravenous Zosyn. Patient tolerated procedure. (2) Diabetes type 1, controlled: Plan: pt typically is a challenge to control , glycemic management recommends to have pt on own insulin pump and manage with dex scanner (3) Aortic stenosis: Plan: s/p porcine valve replacement and cabg. holding aspirin and Plavix at this time. Continue metoprolol. (4) Chronic kidney disease, stage III (moderate): Plan: Monitor intake and output. Serial labs Admission and Anticipated Discharge Date Admission Date: July 12, 2023 Subjective Patient reports no new symptoms. Review of Systems Review of Systems: All systems reviewed & are unremarkable except as noted in HPI & below Physical Exam Constitutional: WD/WN, vitals as above Respiratory: normal respiratory effort, lungs clear to auscultation Cardiovascular: RRR, no murmur, no edema Results & Data Results & Data Vital Signs (Past 12 Hours) Vital Signs Temp Pulse Pulse Pulse Resp BP Pulse Ox 07/17/23 18:53 36.5 C 76 17 105/55 L 94 07/17/23 15:13 36.6 C 73 17 133/75 95 07/17/23 15:03 36.5 C 74 18 144/79 H 96 07/17/23 15:00 71 07/17/23 14:47 36.5 C 75 142/76 H 94 07/17/23 14:05 70 18 131/73 97 07/17/23 13:55 71 18 141/74 H 97 07/17/23 13:45 36.2 C L 74 17 148/74 H 97 07/17/23 13:35 36.2 C L 74 18 147/86 H 98 07/17/23 13:25 75 19 129/86 99 07/17/23 13:15 84 18 147/94 H 99 07/17/23 13:05 36.0 C L 76 18 143/77 H 97 O2 Del Method O2 Flow Rate 07/17/23 18:53 Room Air 07/17/23 15:13 Room Air 07/17/23 15:03 Room Air 07/17/23 15:00 07/17/23 14:47 Room Air 07/17/23 14:05 Nasal Cannula 4 07/17/23 13:55 Nasal Cannula 4 07/17/23 13:45 Nasal Cannula 4 07/17/23 13:35 Nasal Cannula 4 07/17/23 13:25 Nasal Cannula 4 07/17/23 13:15 Oxymask 5 07/17/23 13:05 Oxymask 5 PG Care Time/CCT Total # of Minutes Spent Total Time Spent with Patient: Total time spent is greater than 50% in coordination of care (as documented) at patient's floor/unit and/or counseling patient: Coding Level of Care Code 72233 SUB INP/OBS CARE 235MIN Diagnoses Acute cholecystitis K81.0 Diabetes type 1, controlled E10.9 Aortic stenosis I35.0 Chronic kidney disease, stage III (moderate) N18.30
[2023-07-18 06:34] LABS: Basophils # (auto) 0.03 K/uL (0.00-0.20); Basophils % (auto) 0.2 %; Eosinophils # (auto) 0.01 K/uL (0.00-0.50); Eosinophils % (auto) 0.1 %; Hemoglobin 13.1 g/dl (14.0-18.0); Immature Granulocytes # (auto) 0.08 K/uL (0.01-0.20); Immature Granulocytes % (auto) 0.6 %; Lymphocytes # (auto) 1.54 K/uL (1.20-3.40); Lymphocytes % (auto) 12.3 %; Mean Corpuscular Hemoglobin 27.2 pg (25.0-34.0); Mean Corpuscular Volume 85.2 fL (80.0-100.0); Mean Platelet Volume 9.4 fL (9.4-12.4); Monocytes # (auto) 0.78 K/uL (0.11-0.59); Monocytes % (auto) 6.2 %; Neutrophils # (auto) 10.12 K/uL (1.40-6.50); Neutrophils % (auto) 80.6 %; Platelet Count 353 K/uL (130-400); RDW Coefficient of Variation 14.6 % (11.5-14.5); RDW Standard Deviation 45.5 fL (36.4-46.3); Red Blood Count 4.81 M/uL (4.70-6.10); White Blood Count 12.56 K/ul (4.8-10.8)
[2023-07-18] MEDS: PIPERACILLIN/TAZOBACTAM 4.5 GM in DEXTROSE 5% MINI-B 100 ML IV SCH ×3 (06:42→22:44)
[2023-07-18] MEDS: traMADol HCL 50 MG TABLET PO PRN (06:42)
[2023-07-18 06:49] LABS: Albumin Globulin Ratio 0.8 (0.9-2); Albumin Level 2.8 gm/dl (3.4-5.0); BUN Creatinine Ratio 3.6 (10-20); Bilirubin,Total 0.6 mg/dl (0.2-1.0); Calcium 7.6 mg/dl (8.6-10.3); Creatinine Clr Calc Pharmacy 84.7 ml/min; Est GFR (African American) 106.3 ml/min; Est GFR (Non-African American) 91.7 ml/min; Globulin 3.4 gm/dl (2.5-4.0); Potassium 3.3 mmol/L (3.5-5.1); Total Protein 6.2 gm/dl (6.0-8.3)
[2023-07-18] MEDS: METOPROLOL TARTRATE 25 MG TAB PO SCH ×2 (08:49→19:47)
[2023-07-18] MEDS: BUTT PASTE (ZINC OXIDE 16%) 171 APPLN/57 GM JAR EXT SCH ×3 (08:49→22:40)
[2023-07-18] MEDS: PANTOprazole 40 MG in SYRINGE 0 ML IV SCH (10:39)
[2023-07-18] MEDS: INSULIN, Rapid-Acting PUMP SCH ×4 (11:16→21:28)
[2023-07-18] MEDS: SODIUM CHLORIDE 0.9% 1,000 ML IV SCH ×2 (11:42→22:43)
--- NOTE | 2023-07-18 12:01 | Surgery Progress Note ---
Date of Service July 18, 2023 Assessment & Plan (1) S/P laparoscopic cholecystectomy: Plan: POD 1 patient resting in bed reports abdominal pain 3/10, has not taken any pain medication tolerating clear liquid diet, advance as tolerated Denies N/V, sob , cp, fever chills WBC 12 (11) LFT wnl H/H stable port sites covered with dermabond no s/s infection noted Colostomy functioning Admission and Anticipated Discharge Date Admission Date: July 12, 2023 Supervising Physician Co-Signing Physician Notes Patient seen and examined, labs reviewed, agree with above. POD #1 robotic lysis of adhesions and cholecystectomy for acute on chronic cholecystitis. Overall doing well, tolerating liquids, minimal pain and well controlled. Afebrile stable vitals. Incisions with Dermabond, no signs of infection. H&H stable, LFTs normal. Advance to regular diet, no need for further antibiotics from surgery standpoint, patient may progress to discharge from surgery standpoint. Return precautions given, wound care instructions and activity restrictions reviewed, will follow-up in 2 weeks in general surgery clinic. Subjective patient resting in bed reports abdominal pain 3/10 tolerating clear liquid diet Denies N/V, sob , cp, fever chills Review of Systems Constitutional: no fever and no chills Respiratory: no dyspnea Cardiovascular: no chest pain Gastrointestinal: + abdominal pain; no nausea and no vomit ing colostomy functioning Physical Exam Constitutional: cooperative and comfortable; no acute distress Respiratory: normal respiratory effort and able to speak in complete sentences; no respiratory distress Cardiovascular: Rate/Rhythm: regular rate Gastrointestinal (Abdomen): Inspection/Auscultation: + abdominal surgical incision Percussion/Palpation: + abdomen tender (TTP RUQ) and abdomen soft colostomy functioning port sites covered with dermabond CDI Results & Data Vital Signs (Past 12 Hours) Vital Signs Temp Pulse Pulse Resp BP Pulse Ox O2 Del Method 07/18/23 11:16 97.5 F L 69 18 154/81 H 98 Room Air 07/18/23 09:40 64 07/18/23 08:51 152/78 H 07/18/23 07:31 98.6 F 69 18 96 Room Air 07/18/23 03:06 97.9 F 71 16 157/80 H 95 Room Air PG Care Time/CCT Total # of Minutes Spent Total Time Spent with Patient: Total time spent is greater than 50% in coordination of care (as documented) at patient's floor/unit and/or counseling patient: Coding Level of Care Code 00872 Post Operative Follow-Up Diagnoses S/P laparoscopic cholecystectomy Z90.49
--- NOTE | 2023-07-18 13:39 | Discharge Summary ---
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 patient is seen by Dr. Dawson who is deciding if appropriate for surgery at our facility given recent colostomy at [facility]. complicated resented with back pain and on imaging has suggestion of acute cholecystitis with possible stone in the gallbladder neck patient admitted for hydration pain control and antibiotic therapy Discharge Exam Constitutional WD/WN, vitals as above Respiratory normal respiratory effort, lungs clear to auscultation Cardiovascular RRR, no murmur, no edema Discharge Data Allergies Allergy/AdvReac Type Severity Reaction Status Date / Time No Known Allergies Allergy Unknown Verified 06/19/23 09:15 Consultations 07/12/23 07:08 Consult General Surgery Stat 07/12/23 07:26 ED Decision to Admit Stat 07/12/23 09:45 Consult General Surgery Routine 07/13/23 13:41 Consult Cardiology Routine Procedures Performed Operation Date: 07/17/23 10:50 Actual Procedures p Robotic assisted Laparoscopic Cholecystectomy(Not Applicable) - Markus Dawson, DO, FACS Ordered Studies 07/12/23 05:13 CT Abd and Pelvis [CT abd pelvis wo con] Stat 07/12/23 06:56 US gallbladder Stat Hospital Course (1) Acute cholecystitis: Anticipate laparoscopic cholecystectomy tomorrow, July 17. He has been cleared for surgery by cardiology. Continue supportive care. Clear liquid diet for now along with IV fluids. He remains on intravenous Zosyn. Patient tolerated procedure. (2) Diabetes type 1, controlled: pt typically is a challenge to control , glycemic management recommends to have pt on own insulin pump and manage with dex scanner (3) Aortic stenosis: s/p porcine valve replacement and cabg. holding aspirin and Plavix at this time. Continue metoprolol. (4) Chronic kidney disease, stage III (moderate): Monitor intake and output. Serial labs Discharge Plan Discharge Items Patient Disposition: Home - Self-Care Reason For Visit: ACUTE CHOLECYSTECTOMY Discharge Diagnosis: acute cholecystectomy Activity: Resume your previous activity Lifting: No more than 10 pounds Bathing Comment: you can shower, no baths or pools for 2 weeks Exercise/Sports: Wait until after follow-up appointment Non-emergency contact: Surgeon Call non-emergency contact if: you have any medication questions, your pain is worsening, your temperature is above 101.5, your wound has increased redness, yo ur wound has increased drainage and your wound pain has increased Follow-up/Referrals: Markus Dawson DO, FACS [Physician] - (call office for a follow up in 2 weeks ) Jeremias Morton DO [Primary Care Provider] - Diet: Carb Count or DM1 Addtl Attending Provider Instructions: You have surgical glue called dermabond on your surgical site incisions. You may shower with this on. This will tend to come off within a couple of weeks. Do not pick at it. Pending Studies at Discharge: Yes Studies:: surgical pathology Stand-Alone Forms: My [facility], Smoking Cessation Medications and DC Order Prescriptions: Continued atorvastatin [Lipitor] 80 mg tablet 80 mg PO HS Qty: 90 3RF folic acid 1 mg tablet 1 mg PO QAM Qty: 30 5RF Patient Comments: PT CURRENLTY NOT TAKING/WAITING FOR PHARMACY levothyroxine [Synthroid] 175 mcg tablet 175 mcg PO QAM Qty: 90 2RF metoprolol tartrate 25 mg tablet 12.5 mg PO BID Qty: 90 3RF calcitriol [Rocaltrol] 0.25 mcg capsule 0.25 mcg PO QAM Qty: 30 5RF clopidogrel [Plavix] 75 mg tablet 75 mg PO QAM Qty: 30 5RF (DME) Replacement Brakes for Manual Wheelchair See Rx Instructions .Route .MEDSUPPLY Qty: 1 0RF Rx Instructions: As directed trazodone 100 mg tablet 100 mg PO HS Qty: 30 2RF tamsulosin 0.4 mg capsule 0.4 mg PO DAILY Qty: 90 3RF ferrous sulfate 325 mg (65 mg iron) tablet,delayed release (DR/EC) 325 mg PO BID Qty: 60 5RF (DME) Manual Wheelchair Device See Rx Instructions .Route Qty: 1 0RF Rx Instructions: wheel chair repair (DME) Mattress (Air or other) Misc See Rx Instructions .Route Qty: 1 0RF Rx Instructions: Alternating pressure mattress, use daily chlorthalidone 25 mg tablet 25 mg PO QAM Qty: 90 3RF ezetimibe 10 mg tablet 10 mg PO DAILY Qty: 30 2RF cyclobenzaprine 10 mg tablet 10 mg PO Q8H PRN (Reason: Muscle Spasm) Qty: 90 3RF mupirocin 2 % ointment 1 applic topical Q12H Rx Instructions: Apply to l. scrotum area acetaminophen [Tylenol Extra Strength] 500 mg tablet 1,000 mg PO Q8 PRN (Reason: Pain) nystatin 100,000 unit/gram powder 1 applic topical BID PRN (Reason: Skin Irritation) Rx Instructions: apply to groin insulin aspart U-100 [Novolog U-100 Insulin aspart] 100 unit/mL solution 0 unit continuous subcutaneous infusion DAILY Rx Instructions: PT UNSURE OF BASAL RATE/DOSE VARIES DEPENDING ON CARB INTAKE. Pt unsure of the max units, insulin pump Boudreauxs Butt Paste 16 % ointment 1 applic EXT TID menthol-zinc oxide [Calmoseptine] 0.44-20.6 % ointment 1 applic EXT TID pantoprazole [Protonix] 40 mg tablet,delayed release (DR/EC) 40 mg PO DAILY Qty: 90 3RF aspirin [Mohit Low Dose Aspirin] 81 mg tablet,delayed release (DR/EC) 81 mg PO QAM magnesium oxide 400 mg (241.3 mg magnesium) Tablet 400 mg PO QAM Qty: 30 0RF tramadol 50 mg tablet 50 - 100 mg PO Q6 PRN (Reason: pain) potassium chloride 20 mEq tablet extended release 20 meq PO BID Discharge Orders: Discharge Order (Routine); Ordered 07/18/23 Ordered By: Lui Ellis Admission Data Admit Date/Time: 07/12/23 07:36 Attending Provider: Lui Ellis Admit Provider: Ron Mares Primary Care Provider: Jeremias Morton Other Providers: Markus Dawson; [facility]; Ron Mares; Mik Garcia; Donell Fuentes; Joselo Downey; Edward Velazco; Bobby Lance; Shekhar Machuca Jr; Anish Dickerson; Camila Luevano; Susana Munoz; Juni Javed; Juni Mahoney; Alexis Becker; Cori Juares; Adamaris Hong; Eriberto Jones; Aaron Baker; Edward Morales V.; Leo Valencia Coding Diagnoses Acute cholecystitis K81.0 Diabetes type 1, controlled E10.9 Aortic stenosis I35.0 Chronic kidney disease, stage III (moderate) N18.30
[2023-07-18] MEDS: MoRPHine SULFATE 4 MG/ML 1 ML CARP\\VIAL IV PRN ×2 (14:44→22:26)
[2023-07-18] MEDS ORDERED: POTASSIUM CHLORIDE CRTAB 20 MEQ TABCR PO STA (14:57)
--- NOTE | 2023-07-18 14:57 | Hospitalist Progress Note ---
Date of Service July 18, 2023 Assessment & Plan (1) Acute cholecystitis: Plan: Anticipate laparoscopic cholecystectomy tomorrow, July 17. He has been cleared for surgery by cardiology. Continue supportive care. Clear liquid diet for now along with IV fluids. He remains on intravenous Zosyn. Patient tolerated procedure. (2) Diabetes type 1, controlled: Plan: pt typically is a challenge to control , glycemic management recommends to have pt on own insulin pump and manage with dex scanner (3) Aortic stenosis: Plan: s/p porcine valve replacement and cabg. holding aspirin and Plavix at this time. Continue metoprolol. (4) Chronic kidney disease, stage III (moderate): Plan: Monitor intake and output. Serial labs Admission and Anticipated Discharge Date Admission Date: July 12, 2023 Subjective Patient reports no new symptoms Review of Systems Review of Systems: All systems reviewed & are unremarkable except as noted in HPI & below Physical Exam Constitutional: WD/WN, vitals as above Respiratory: normal respiratory effort, lungs clear to auscultation Cardiovascular: RRR, no murmur, no edema Results & Data Results & Data Vital Signs (Past 12 Hours) Vital Signs Temp Pulse Pulse Resp BP Pulse Ox O2 Del Method 07/18/23 11:16 36.4 C L 69 18 154/81 H 98 Room Air 07/18/23 09:40 64 07/18/23 08:51 152/78 H 07/18/23 07:31 37.0 C 69 18 96 Room Air 07/18/23 03:06 36.6 C 71 16 157/80 H 95 Room Air PG Care Time/CCT Total # of Minutes Spent Total Time Spent with Patient: Total time spent is greater than 50% in coordination of care (as documented) at patient's floor/unit and/or counseling patient: Coding Level of Care Code 40699 SUB INP/OBS CARE 2/35MIN Diagnoses Acute cholecystitis K81.0 Diabetes type 1, controlled E10.9 Aortic stenosis I35.0 Chronic kidney disease, stage III (moderate) N18.30
[2023-07-18] MEDS: GLUCOSE 40% GEL 15 GM TUBE PO PRN ×3 (16:14→17:01)
[2023-07-19] MEDS: MoRPHine SULFATE 2 MG/ML CARP IV PRN (03:04)
[2023-07-19] MEDS: CARBOHYDRATES FOR HYPOGLYCEMIA PO PRN ×4 (06:07→07:00)
[2023-07-19 06:18] LABS: Basophils # (auto) 0.09 K/uL (0.00-0.20); Basophils % (auto) 0.7 %; Eosinophils # (auto) 1.14 K/uL (0.00-0.50); Eosinophils % (auto) 8.7 %; Hematocrit (blood only) 38.7 % (42.0-52.0); Hemoglobin 12.6 g/dl (14.0-18.0); Immature Granulocytes # (auto) 0.04 K/uL (0.01-0.20); Immature Granulocytes % (auto) 0.3 %; Lymphocytes # (auto) 2.93 K/uL (1.20-3.40); Lymphocytes % (auto) 22.3 %; Mean Corpuscular Hemoglobin 27.1 pg (25.0-34.0); Mean Corpuscular Hgb Conc 32.6 g/dL (32.0-36.0); Mean Corpuscular Volume 83.2 fL (80.0-100.0); Mean Platelet Volume 9.1 fL (9.4-12.4); Monocytes # (auto) 1.21 K/uL (0.11-0.59); Monocytes % (auto) 9.2 %; Neutrophils # (auto) 7.71 K/uL (1.40-6.50); Neutrophils % (auto) 58.8 %; Platelet Count 346 K/uL (130-400); RDW Standard Deviation 44.7 fL (36.4-46.3); Red Blood Count 4.65 M/uL (4.70-6.10); White Blood Count 13.12 K/ul (4.8-10.8)
[2023-07-19 06:39] LABS: Albumin Level 2.7 gm/dl (3.4-5.0); Bilirubin,Total 0.5 mg/dl (0.2-1.0); Calcium 7.6 mg/dl (8.6-10.3); Potassium 3.5 mmol/L (3.5-5.1)
[2023-07-19] MEDS: PIPERACILLIN/TAZOBACTAM 4.5 GM in DEXTROSE 5% MINI-B 100 ML IV SCH (06:42)
[2023-07-19 06:48] LABS: Albumin Globulin Ratio 0.9 (0.9-2); BUN Creatinine Ratio 2.5 (10-20); Creatinine Clr Calc Pharmacy 86.8 ml/min; Est GFR (African American) 107.3 ml/min; Est GFR (Non-African American) 92.6 ml/min; Globulin 3.1 gm/dl (2.5-4.0); Total Protein 5.8 gm/dl (6.0-8.3)
[2023-07-19] MEDS: INSULIN, Rapid-Acting PUMP SCH ×4 (08:52→21:09)
--- NOTE | 2023-07-19 09:00 | Surgery Progress Note ---
Date of Service July 19, 2023 Assessment & Plan (1) S/P laparoscopic cholecystectomy: Plan: Status post robotic cholecystectomy, doing well. His caregiver will not be home until tomorrow Diet as tolerated No need for further antibiotics from general surgery standpoint Okay to discharge from general surgery standpoint Follow-up in 2 weeks, return precautions given, wound care instructions and activity restrictions reviewed, call clinic with questions or concerns Admission and Anticipated Discharge Date Admission Date: July 12, 2023 Subjective POD #2 robotic cholecystectomy. Tolerated regular food for dinner, no issues. Was hypoglycemic this morning. Pain present on presentation is gone. A little sore at incision sites. Physical Exam Constitutional: WD/WN, vitals as above Gastrointestinal (Abdomen): normal bowel sounds, soft, nontender, no hepatosplenomegaly Inspection/Auscultation: + abdominal surgical incision (With Dermabond, healing well) Ostomy functional and healthy Results & Data Vital Signs (Past 12 Hours) Vital Signs Temp Pulse Pulse Resp BP Pulse Ox O2 Del Method 07/19/23 07:46 73 07/19/23 07:05 36.6 C 69 16 139/82 95 Room Air 07/19/23 02:53 37.2 C 66 20 115/64 92 Room Air 07/18/23 23:09 66 07/18/23 22:25 36.6 C 68 16 150/86 H 95 Room Air Laboratory Results Laboratory Results - last 24 hr 07/18/23 07/18/23 07/18/23 11:12 16:00 16:02 WBC RBC Hgb Hct MCV MCH MCHC RDW Std Deviation RDW Coeff of Chan Plt Count MPV Immature Gran % (Auto) Neut % (Auto) Lymph % (Auto) Prentiss % (Auto) Eos % (Auto) Baso % (Auto) Neut # (Auto) Lymph # (Auto) Prentiss # (Auto) Eos # (Auto) Baso # (Auto) Immature Gran # (Auto) Sodium Potassium Chloride Carbon Dioxide Anion Gap BUN Creatinine Est Cr Clr Drug Dosing Est GFR ( Amer) Est GFR (Non-Af Amer) BUN/Creatinine Ratio Glucose POC Glucose 147 H 48 L* 59 L* Calcium Total Bilirubin AST ALT Alkaline Phosphatase Total Protein Albumin Globulin Albumin/Globulin Ratio 07/18/23 07/18/23 07/18/23 16:28 16:51 17:19 WBC RBC Hgb Hct MCV MCH MCHC RDW Std Deviation RDW Coeff of Chan Plt Count MPV Immature Gran % (Auto) Neut % (Auto) Lymph % (Auto) Prentiss % (Auto) Eos % (Auto) Baso % (Auto) Neut # (Auto) Lymph # (Auto) Prentiss # (Auto) Eos # (Auto) Baso # (Auto) Immature Gran # (Auto) Sodium Potassium Chloride Carbon Dioxide Anion Gap BUN Creatinine Est Cr Clr Drug Dosing Est GFR ( Amer) Est GFR (Non-Af Amer) BUN/Creatinine Ratio Glucose POC Glucose 51 L* 52 L* 62 L* Calcium Total Bilirubin AST ALT Alkaline Phosphatase Total Protein Albumin Globulin Albumin/Globulin Ratio 07/18/23 07/18/23 07/19/23 17:42 20:23 05:52 WBC 13.12 H RBC 4.65 L Hgb 12.6 L Hct 38.7 L MCV 83.2 MCH 27.1 MCHC 32.6 RDW Std Deviation 44.7 RDW Coeff of Chan 15.0 H Plt Count 346 MPV 9.1 L Immature Gran % (Auto) 0.3 Neut % (Auto) 58.8 Lymph % (Auto) 22.3 Prentiss % (Auto) 9.2 Eos % (Auto) 8.7 Baso % (Auto) 0.7 Neut # (Auto) 7.71 H Lymph # (Auto) 2.93 Prentiss # (Auto) 1.21 H Eos # (Auto) 1.14 H Baso # (Auto) 0.09 Immature Gran # (Auto) 0.04 Sodium 142 Potassium 3.5 Chloride 107 Carbon Dioxide 33 H Anion Gap 2 L BUN 2 L Creatinine 0.81 Est Cr Clr Drug Dosing 86.8 Est GFR ( Amer) 107.3 Est GFR (Non-Af Amer) 92.6 BUN/Creatinine Ratio 2.5 L Glucose 49 L* POC Glucose 108 H 130 H Calcium 7.6 L Total Bilirubin 0.5 AST 29 ALT 16 Alkaline Phosphatase 85 Total Protein 5.8 L Albumin 2.7 L Globulin 3.1 Albumin/Globulin Ratio 0.9 07/19/23 07/19/23 07/19/23 06:05 06:22 06:41 WBC RBC Hgb Hct MCV MCH MCHC RDW Std Deviation RDW Coeff of Chan Plt Count MPV Immature Gran % (Auto) Neut % (Auto) Lymph % (Auto) Prentiss % (Auto) Eos % (Auto) Baso % (Auto) Neut # (Auto) Lymph # (Auto) Prentiss # (Auto) Eos # (Auto) Baso # (Auto) Immature Gran # (Auto) Sodium Potassium Chloride Carbon Dioxide Anion Gap BUN Creatinine Est Cr Clr Drug Dosing Est GFR ( Amer) Est GFR (Non-Af Amer) BUN/Creatinine Ratio Glucose POC Glucose 56 L* 46 L* 56 L* Calcium Total Bilirubin AST ALT Alkaline Phosphatase Total Protein Albumin Globulin Albumin/Globulin Ratio 07/19/23 07/19/23 06:59 07:24 WBC RBC Hgb Hct MCV MCH MCHC RDW Std Deviation RDW Coeff of Chan Plt Count MPV Immature Gran % (Auto) Neut % (Auto) Lymph % (Auto) Prentiss % (Auto) Eos % (Auto) Baso % (Auto) Neut # (Auto) Lymph # (Auto) Prentiss # (Auto) Eos # (Auto) Baso # (Auto) Immature Gran # (Auto) Sodium Potassium Chloride Carbon Dioxide Anion Gap BUN Creatinine Est Cr Clr Drug Dosing Est GFR ( Amer) Est GFR (Non-Af Amer) BUN/Creatinine Ratio Glucose POC Glucose 65 L* 112 H Calcium Total Bilirubin AST ALT Alkaline Phosphatase Total Protein Albumin Globulin Albumin/Globulin Ratio PG Care Time/CCT Total # of Minutes Spent Total Time Spent with Patient: Total time spent is greater than 50% in coordination of care (as documented) at patient's floor/unit and/or counseling patient: Coding Level of Care Code 72892 Post Operative Follow-Up Diagnoses S/P laparoscopic cholecystectomy Z90.49
[2023-07-19] MEDS: MoRPHine SULFATE 4 MG/ML 1 ML CARP\\VIAL IV PRN ×2 (09:03→14:24)
[2023-07-19] MEDS: METOPROLOL TARTRATE 25 MG TAB PO SCH ×2 (09:04→22:02)
[2023-07-19] MEDS: BUTT PASTE (ZINC OXIDE 16%) 171 APPLN/57 GM JAR EXT SCH ×3 (09:04→20:01)
[2023-07-19] MEDS: PANTOprazole 40 MG in SYRINGE 0 ML IV SCH (10:21)
--- NOTE | 2023-07-19 22:30 | Hospitalist Progress Note ---
Date of Service July 19, 2023 Assessment & Plan (1) Acute cholecystitis: Plan: S/P laparoscopic cholecystectomy on July 17. He has been cleared for surgery by cardiology. Continue supportive care. Advanced diet to low fat, diabetic diet. Patient tolerated procedure. ZOsyn stopped on 07/19. WBC mainly eosinophils, doubt infection. OF note, asymptomatic bacteruria found in UA< no symptoms, but zosyn would have covered this. (2) Diabetes type 1, controlled: Plan: pt typically is a challenge to control , glycemic management recommends to have pt on own insulin pump and manage with dex scanner (3) Aortic stenosis: Plan: s/p porcine valve replacement and cabg. holding aspirin and Plavix at this time. Continue metoprolol. (4) Chronic kidney disease, stage III (moderate): Plan: Monitor intake and output. Serial labs Admission and Anticipated Discharge Date Admission Date: July 12, 2023 Subjective Patient resting comfortably. Reports he needs assistance at home and cannot be discharged today. Plans for tomorrow. Review of Systems Review of Systems: All systems reviewed & are unremarkable except as noted in HPI & below Physical Exam Physical Exam: Patient resting comofrtably in bed. NAD. Results & Data Results & Data Vital Signs (Past 12 Hours) Vital Signs Temp Pulse Pulse Resp BP Pulse Ox O2 Del Method 07/19/23 20:51 36.9 C 71 20 145/76 H 94 Room Air 07/19/23 16:01 66 07/19/23 11:27 36.4 C L 68 19 132/68 96 Room Air PG Care Time/CCT Total # of Minutes Spent Total Time Spent with Patient: Total time spent is greater than 50% in coordination of care (as documented) at patient's floor/unit and/or counseling patient: Coding Level of Care Code 00479 SUB INP/OBS CARE 2/35MIN Diagnoses Acute cholecystitis K81.0 Diabetes type 1, controlled E10.9 Aortic stenosis I35.0 Chronic kidney disease, stage III (moderate) N18.30
[2023-07-20] MEDS: MoRPHine SULFATE 2 MG/ML CARP IV PRN ×2 (06:47→21:44)
[2023-07-20] MEDS: BUTT PASTE (ZINC OXIDE 16%) 171 APPLN/57 GM JAR EXT SCH ×3 (07:36→21:53)
[2023-07-20] MEDS: METOPROLOL TARTRATE 25 MG TAB PO SCH ×2 (07:36→21:47)
[2023-07-20] MEDS: INSULIN, Rapid-Acting PUMP SCH ×4 (08:34→21:00)
[2023-07-20] MEDS: ONDANSETRON INJ 2 MG/ML 2 ML VIAL IV PRN (08:36)
[2023-07-20] MEDS ORDERED: INSULIN HUMAN NPH SC STA (12:28)
[2023-07-20] MEDS ORDERED: DEXTROSE 50% 50 ML SYRINGE IV PRN (12:28)
[2023-07-20] MEDS ORDERED: GLUCOSE 10 TAB/TUBE PO PRN (12:28)
[2023-07-20] MEDS ORDERED: GLUCOSE 40% GEL 15 GM TUBE PO PRN (12:28)
[2023-07-20] MEDS ORDERED: GLUCAGON FOR INJ 1 MG VIAL SQ PRN (12:28)
[2023-07-20] MEDS ORDERED: CARBOHYDRATES FOR HYPOGLYCEMIA PO PRN (12:28)
[2023-07-20] MEDS ORDERED: PHARMACY GLYCEMIC MGMT CONSULT PRN (12:35)
[2023-07-20] MEDS ORDERED: NovoLIN-N (NPH) PER UNIT CHARGE SQ SCH (13:30)
[2023-07-20] MEDS: INSULIN ASPART PER UNIT CHARGE SC SCH ×2 (13:41→17:11)
[2023-07-20] MEDS: INSULIN HUMAN REGULAR PER UNIT 5 UNITS in SYRINGE 4.95 ML IV ONE ×2 (13:42→14:22)
[2023-07-20] MEDS: PANTOprazole 40 MG in SYRINGE 0 ML IV SCH (13:52)
--- NOTE | 2023-07-20 13:57 | Pharmacy Report ---
Pharmacy Glycemic Short Note 2 - Date of Service July 20, 2023 - Glycemic Short BSG Results (Last 24 hours): 07/19/23 07/19/23 07/20/23 16:08 20:30 02:49 POC Glucose 73 142 H 85 07/20/23 07/20/23 07/20/23 07:11 07:16 11:19 POC Glucose 307 H* 280 H 467 H* OUTPATIENT ANTIDIABETIC REGIMEN: * Novolog pump ASSESSMENT: * 68 y/o M admitted for acute cholecystitis on 07/12/23. He underwent lap chol ecystectomy on 07/17. * History of Type 1 diabetes managed on Novolog pump at home. His insulin pump was being utilized throughout this admission until yesterday when he had to change his site. Per Lillie BELCHER, the pump was off of him since this morning for the past 4 plus hours. He now needs new supplies to resume pump. * Spoke with patient's nurse and Dr. Mares, plan is for family to bring in pump supplies around 6 pm today. * BSGs trended up to 467 mg/dl pre-lunch today. Pharmacy consulted for glycemic management. * Ordered IV insulin bolus 5 units + Novolog coverage based on stress of 3. * NPH insulin 15 units which is around 50% of his home basal dose was given. * Reduced dose of basal insulin ordered to help facilitate pump re-start this evening when supplies arrive. NPH insulin should wear off in 8 hrs but since only a reduced dose was given, the pump can be re-started sooner. PLAN FOR INPATIENT GLYCEMIC CONTROL: * Basal insulin * NPH insulin 15 units x1 dose today ~13:30 * Bolus insulin * NovoLog per scale ACHS or Q6hrs while NPO * Goal Range: Low 110 mg/dL - High 140 mg/dL * Correction Factor: 20 mg/dL/unit * Nutritional / Prandial insulin per carb ratio of 1 unit per 6 grams CHO consumed
[2023-07-20] MEDS: traMADol HCL 50 MG TABLET PO PRN (14:35)
--- NOTE | 2023-07-20 19:52 | Hospitalist Progress Note ---
Date of Service July 20, 2023 Assessment & Plan (1) Acute cholecystitis: Plan: S/P laparoscopic cholecystectomy on July 17. He has been cleared for surgery by cardiology. Continue supportive care. Advanced diet to low fat, diabetic diet. Patient tolerated procedure. ZOsyn stopped on 07/19. WBC mainly eosinophils, doubt infection. OF note, asymptomatic bacteruria found in UA< no symptoms, but zosyn would have covered this. (2) Diabetes type 1, controlled: Plan: uncontrolled 07/20/23, pump malfunction. briefly on basal bolus, hopeful the family to bring in pump supplies pt typically is a challenge to control , glycemic management is managing with us will need to have replaced pump and good glycemic control (3) Aortic stenosis: Plan: s/p porcine valve replacement and cabg. holding aspirin and Plavix at this time. Continue metoprolol. (4) Chronic kidney disease, stage III (moderate): Plan: Monitor intake and output. Serial labs Admission and Anticipated Discharge Date Admission Date: July 12, 2023 Subjective pt has insulin pump malfunction and has had significant hyperglycemia, this is counter to the elevated blood glucose seen in last few days, pt typically has challenges with control of inpatient blood glucoses Physical Exam Physical Exam: Pt is without issues cardiac exam is regular, BKA stumps are clean abdomen is soft and non tender Results & Data Results & Data Vital Signs (Past 12 Hours) Vital Signs Temp Pulse Pulse Resp BP Pulse Ox O2 Del Method 07/20/23 19:12 98.1 F 73 18 116/73 97 Room Air 07/20/23 16:00 86 07/20/23 15:40 97.9 F 74 17 97 Room Air 07/20/23 08:00 76 07/20/23 08:00 99.0 F 80 17 143/79 H 94 Room Air Laboratory Results reviewed BSG, discussed case with glycemic pharmacist PG Care Time/CCT Total # of Minutes Spent Total Time Spent with Patient: Total time spent is greater than 50% in coordination of care (as documented) at patient's floor/unit and/or counseling patient: Coding Level of Care Code 24693 SUB INP/OBS CARE 3/50MIN Diagnoses Acute cholecystitis K81.0 Diabetes type 1, controlled E10.9 Aortic stenosis I35.0 Chronic kidney disease, stage III (moderate) N18.30
[2023-07-20 21:19] LABS: BUN Creatinine Ratio 17.7 (10-20); Calcium 8.8 mg/dl (8.6-10.3); Est GFR (African American) 108.5 ml/min; Est GFR (Non-African American) 93.6 ml/min; Potassium 3.4 mmol/L (3.5-5.1)
[2023-07-21] MEDS ORDERED: POTASSIUM CHLORIDE CRTAB 20 MEQ TABCR PO STA (00:02)
[2023-07-21] MEDS: INSULIN, Rapid-Acting PUMP SCH ×4 (00:25→12:50)
[2023-07-21] MEDS: BUTT PASTE (ZINC OXIDE 16%) 171 APPLN/57 GM JAR EXT SCH (08:17)
[2023-07-21] MEDS: METOPROLOL TARTRATE 25 MG TAB PO SCH (08:17)
[2023-07-21] MEDS ORDERED: LOPERAMIDE HCL 2 MG CAP PO STA (10:43)
[2023-07-21] MEDS: PANTOprazole 40 MG in SYRINGE 0 ML IV SCH (11:11)
--- NOTE | 2023-07-21 12:09 | Pharmacy Report ---
Pharmacy Glycemic Sign Off Nt - Date of Service July 21, 2023 - Assessment & Plan ASSESSMENT: * Pharmacy was consulted by Dr Mares on 07/20/2023 for glycemic control and to write orders per [facility] inpatient glycemic control protocol. * Major changes made by pharmacy to antidiabetic regimen include: * Pharmacy consulted for transition to SC insulin due to insulin pump failure * BSG up to 467 with lunch yesterday, ordered IV insulin bolus 5 units + Novolog coverage based on stress of 3. * NPH insulin 15 units ordered which is around 50% of his home basal dose was given. * Pump supplies brought in by family yesterday evening and restarted for dinner * BSG still elevated at bedtime, glycemic pharmacist available yesterday evening, on bolused 7.5 units with dinner via pump wizard, additional 6 units of bolus given at this time. * BSGs acceptable this AM and lunchtime. * Patient pump is working to fulfill glycemic needs at this time. Pharmacy does not follow insulin pump patients. Please reconsult if needing to transition back to SC insulin. * Do not anticipate further changes in patient status that would quickly deteriorate glycemic control (i.e. patient to be NPO for upcoming procedure, steroids tapering, starting tube feedings, etc). PLAN FOR INPATIENT GLYCEMIC CONTROL: No changes needed to current regimen. * Continue Novolog pump * Pharmacy is signing off of glycemic consult and will no longer be making adjustments to inpatient regimen. Please feel free to re-consult if needed. Thank you.
--- NOTE | 2023-07-21 17:45 | Discharge Summary ---
Date of Service July 21, 2023 Principal Diagnosis acute cholecystitis s/p cholecystectomy 07/17/23 difficult glucose management Discharge Exam pt is awake and alert no focal complaints Discharge Data Allergies Allergy/AdvReac Type Severity Reaction Status Date / Time No Known Allergies Allergy Unknown Verified 06/19/23 09:15 Consultations 07/12/23 07:08 Consult General Surgery Stat 07/12/23 07:26 ED Decision to Admit Stat 07/12/23 09:45 Consult General Surgery Routine 07/13/23 13:41 Consult Cardiology Routine Procedures Performed Operation Date: 07/17/23 10:50 Actual Procedures p Robotic assisted Laparoscopic Cholecystectomy(Not Applicable) - Markus Dawson DO, FACS Ordered Studies 07/12/23 05:13 CT Abd and Pelvis [CT abd pelvis wo con] Stat 07/12/23 06:56 US gallbladder Stat Hospital Course (1) Acute cholecystitis: S/P laparoscopic cholecystectomy on July 17. Patient tolerated procedure. ZOsyn stopped on 07/19. OF note, asymptomatic bacteruria found in UA< no symptoms, but zosyn would have covered this. (2) Diabetes type 1, controlled: uncontrolled 07/20/23, pump malfunction. briefly on basal bolus, hopeful the family to bring in pump supplies pt typically is a challenge to control , had issues with pump malfunction delaying discharge for a day home on insulin pump (3) Aortic stenosis: s/p porcine valve replacement and cabg. holding aspirin and Plavix at this time. Continue metoprolol. (4) Chronic kidney disease, stage III (moderate): Total Time Total Time Spent Total Time Spent (In Minutes): greater than 30 minutes required to complete Discharge Plan Discharge Items Patient Disposition: Home - Self-Care Reason For Visit: ACUTE CHOLECYSTECTOMY Discharge Diagnosis: acute cholecystectomy Activity: Resume your previous activity Lifting: No more than 10 pounds Bathing Comment: you can shower, no baths or pools for 2 weeks Exercise/Sports: Wait until after follow-up appointment Non-emergency contact: Surgeon Call non-emergency contact if: you have any medication questions, your pain is worsening, your temperature is above 101.5, your wound has increased redness, your wound has increased drainage and your wound pain has increased Follow-up/Referrals: Markus Dawson DO, FACS [Physician] - 07/31/23 10:30 am (call office for a follow up in 2 weeks ) Jeremias Morton, [Primary Care Provider] - 07/24/23 3:00 pm (Will see KAREEN Wood in Dr Morton's office) Diet: Carb Count or DM1 Addtl Attending Provider Instructions: You have surgical glue called dermabond on your surgical site incisions. You may shower with this on. This will tend to come off within a couple of weeks. Do not pick at it. Pending Studies at Discharge: Yes Studies:: surgical pathology Stand-Alone Forms: My [facility] kenxus, Smoking Cessation Medications and DC Order Prescriptions: Continued atorvastatin [Lipitor] 80 mg tablet 80 mg PO HS Qty: 90 3RF folic acid 1 mg tablet 1 mg PO QAM Qty: 30 5RF Patient Comments: PT CURRENLTY NOT TAKING/WAITING FOR PHARMACY levothyroxine [Synthroid] 175 mcg tablet 175 mcg PO QAM Qty: 90 2RF metoprolol tartrate 25 mg tablet 12.5 mg PO BID Qty: 90 3RF calcitriol [Rocaltrol] 0.25 mcg capsule 0.25 mcg PO QAM Qty: 30 5RF clopidogrel [Plavix] 75 mg tablet 75 mg PO QAM Qty: 30 5RF (DME) Replacement Brakes for Manual Wheelchair See Rx Instructions .Route .MEDSUPPLY Qty: 1 0RF Rx Instructions: As directed trazodone 100 mg tablet 100 mg PO HS Qty: 30 2RF tamsulosin 0.4 mg capsule 0.4 mg PO DAILY Qty: 90 3RF ferrous sulfate 325 mg (65 mg iron) tablet,delayed release (DR/EC) 325 mg PO BID Qty: 60 5RF (DME) Manual Wheelchair Device See Rx Instructions .Route Qty: 1 0RF Rx Instructions: wheel chair repair (DME) Mattress (Air or other) Misc See Rx Instructions .Route Qty: 1 0RF Rx Instructions: Alternating pressure mattress, use daily chlorthalidone 25 mg tablet 25 mg PO QAM Qty: 90 3RF ezetimibe 10 mg tablet 10 mg PO DAILY Qty: 30 2RF cyclobenzaprine 10 mg tablet 10 mg PO Q8H PRN (Reason: Muscle Spasm) Qty: 90 3RF mupirocin 2 % ointment 1 applic topical Q12H Rx Instructions: Apply to l. scrotum area acetaminophen [Tylenol Extra Strength] 500 mg tablet 1,000 mg PO Q8 PRN (Reason: Pain) nystatin 100,000 unit/gram powder 1 applic topical BID PRN (Reason: Skin Irritation) Rx Instructions: apply to groin insulin aspart U-100 [Novolog U-100 Insulin aspart] 100 unit/mL solution 0 unit continuous subcutaneous infusion DAILY Rx Instructions: PT UNSURE OF BASAL RATE/DOSE VARIES DEPENDING ON CARB INTAKE. Pt unsure of the max units, insulin pump Boudreauxs Butt Paste 16 % ointment 1 applic EXT TID menthol-zinc oxide [Calmoseptine] 0.44-20.6 % ointment 1 applic EXT TID pantoprazole [Protonix] 40 mg tablet,delayed release (DR/EC) 40 mg PO DAILY Qty: 90 3RF aspirin [Mohit Low Dose Aspirin] 81 mg tablet,delayed release (DR/EC) 81 mg PO QAM magnesium oxide 400 mg (241.3 mg magnesium) Tablet 400 mg PO QAM Qty: 30 0RF tramadol 50 mg tablet 50 - 100 mg PO Q6 PRN (Reason: pain) potassium chloride 20 mEq tablet extended release 20 meq PO BID Discharge Orders: Discharge Order (Routine); Ordered 07/21/23 Ordered By: Ron Mares Admission Data Admit Date/Time: 07/12/23 07:36 Attending Provider: Ron Mares Admit Provider: Ron Mares Primary Care Provider: Jeremias Morton Other Providers: Markus Dawson; [facility]; Ron Mares; Mik Garcia; Donell Fuentes; Joselo Downey; Edward Velazco; Bobby Lance; Shekhar Machuca Jr; Anish Dickerson; Camila Luevano; Susana Munoz; Juni Javed; Juni Mahoney; Alexis Becker; Cori Juares; Adamaris Hong; Eriberto Jones; Aaron Baker; Edward Morales V.; Leo Valencia Other Interventions: Discharge Summary Assessment (RN) Last Done: 07/21/23 12:06 Coding Level of Care Code 19413 INP/OBS DISCH >30 MIN Diagnoses Acute cholecystitis K81.0 Diabetes type 1, controlled E10.9 Aortic stenosis I35.0 Chronic kidney disease, stage III (moderate) N18.30
== END 2023-07-21 14:10 | disposition home or self-care (01) | DRG 418 ==
LOC: ED 04:57 → EDINP 07:36 → SUATTDRO 07:36 → 2S 13:45

== ENCOUNTER 2023-08-10 17:33 | Inpatient (IN) ==
--- NOTE | 2023-08-10 19:05 | Emergency Department Note ---
Impression & Plan Dehiscence of wound ED Provider Note NAME: BRANDON MOE Jr AGE: 68 SEX: M : 1955 ARRIVES VIA: Ambulance INFORMANT: Patient, ED PROVIDER(S): Rachel Lion MD CHIEF COMPLAINT: Bleeding [place] drain site HPI: This is a 68-year-old male with CKD, cholecystectomy, chronic sacral ulcer, [id number] amputation, below-knee amputation, presenting for bleeding wound. Patient had an abscess in December 2022, multiple months ago, had a [place]arte drain placed at that time. The plan was to keep his drain in for "a long time "due to patient's poor healing. Patient has had his Duarte drain in since about January 2023. He has had has been doing well throughout this time. Patient had a recent surgery for a fistula in his abdomen. He otherwise has noted bleeding from the site that started today. Family is concerned that there was possible weight discharge as well as well as profuse bleeding earlier today. Whenever the patient is getting up, if there is a gush of fluid. No fevers or chills. ROS: See above HPI for pertinent positives & negatives. A total of 10 systems reviewed and were otherwise negative. PAST MEDICAL HISTORY: See Below PAST SURGICAL HISTORY: See Below FAMILY HISTORY: See Below SOCIAL HISTORY: See Below HOME MEDICATIONS: See Below ALLERGIES: See Below VITALS: See Below EXAMINATION: General: resting comfortably in no acute distress Head: Normocephalic and atraumatic Eyes: Normal inspection, extraocular muscles intact Ear, nose, throat: Normal external exam Neck: Normal range of motion Respiratory: lungs clear to auscultation bilaterally Cardiovascular: Regular rate/rhythm, no murmur GI: soft, nontender, no guarding or rebound : Left proximal thigh shows an open wound with a white [place] drain, mild bleeding or blood clots, fairly large opening Extremities: Below the knee and [id number] amputations Neuro: The patient awake and alert, appropriately conversive, no focal deficits, symmetric faces Skin: Warm, dry, and intact MEDICAL DECISION MAKING: This is a 68-year-old male history of bilateral lower extremity amputation, CKD, cholecystectomy, chronic sacral ulcer presenting for bleeding wound. Patient reportedly had an abscess in this location in December 2022. Duarte drain left in since January. Now is having bleeding. Consider deep space infection such as abscess; consider irritation from Duarte drain Patient's leukocytosis is elevated at 15, hemoglobin 12.8. Otherwise slight low potassium/chloride. Patient CT scan as below, shows the packing left in place, in the left perirectal space, no appreciable abscess. Discussed case with Dr. Valadez who recommends either discharge with outpatient follow-up if clinically appropriate or admission for surgical evaluation in the morning. Due to now enlarging size of the wound, family states that the wound has not grown in size by double his initial with just in the past 1 day and now persistent bleeding, will admit for further evaluation by surgery. Triage Nursing notes reviewed. Prior medical records reviewed Vital Signs: reviewed and remarkable for no significant abnormalities Differential diagnosis: Deep space infection, venous bleed, wound dehiscence ER treatment provided: See below Diagnostics interpreted by me: ECG: None Cardiac Monitoring: An order was placed for continuous cardiac monitoring. The monitor shows a rate of 80 with sinus. Laboratory studies: As stated above and show below. Imaging studies: See below. Radiographic imaging was reviewed by myself Consultation(s): Dr. Valadez, surgery Past Med/Surg History Medical History Cellulitis of perineum Cellulitis of scrotum BPH (benign prostatic hyperplasia) Anemia Above knee amputation of left lower extremity Surgical wound, non healing Stage III pressure ulcer 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) Hx MRSA infection 01/2022 (left heel) Type I diabetes mellitus, uncontrolled Candidal diaper rash History of colon polyps History of Clostridium difficile infection s/p treatment (2020) Below-knee amputation of right lower extremity Clostridium difficile colitis DVT prophylaxis Folate deficiency Constipation Anemia COPD (chronic obstructive pulmonary disease) GERD (gastroesophageal reflux disease) Dyslipidemia Hypertension Hypothyroidism Vitamin D deficiency Aortic stenosis s/p porcine valve replacement (2015) + CABG x1 Follows with [facility] cardio CAD (coronary artery disease) s/p CABG x 1 (2015) Surgical History Hx laparoscopic cholecystectomy (07/17/23) Robotic assisted Laparoscopic Cholecystectomy(Not Applicable) - Markus Dawson, DO, FACS Hx of cystoscopy w/stent placement; stent then removed S/P femoral-tibial bypass Below-knee amputation of right lower extremity H/O vascular surgery Right Femoral to Posterior tibial Prosthetic Bypass Graft(Right) History of skin graft Split Thickness Skin Graft of Left Lateral Ankle (11/18/20): LMA#5, atraumatic x1 at [facility] Hx of surgical procedure Left Leg Wound Debridement and Irrigation History of arterial bypass of lower extremity Left femoral to PT composite bypass graft (06/2020) History of carpal tunnel release R/L History of tooth extraction History of tonsillectomy History of myringotomy w/tubes bilat. S/P femoropopliteal bypass surgery Right fem-pop bypass graft (01/19/21): Grade 2 view, MAC 3.0, ETT 8.0 at [facility] History of cardiac cath x2, most recent 2015 > no stents (subsequent CABG with AVR in 2015); [facility] History of umbilical hernia repair S/P insertion of iliac artery stent B/L iliac stent placement (2014) H/O endarterectomy R common femoral (11/2018) History of open reduction and internal fixation (ORIF) procedure LLE () History of colonoscopy History of esophagogastroduodenoscopy (EGD) [place] [place] H/O cataract extraction R/L History of ankle surgery LEFT ANKLE +HARDWARE REMOVED History of coronary artery bypass graft CABG x1 + AVR (2015) 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 Left transmetatarsal amputation (11/23/21): LMA# 5.0 at [facility]. No issues noted per post-op anesthesia progress note. HX 1 SX TO REMOVE ALL TOES LEFT FOOT NOVEMBER 2021 Family History Brother Family history of diabetes mellitus Sister Family history of diabetes mellitus Mother Family history of diabetes mellitus Grandmother (Maternal) Family history of diabetes mellitus Uncle Family hx of colon cancer Colorectal cancer Father Family history of esophageal cancer Sister Family history of diabetes mellitus Other No family history of adverse response to anesthesia Denies family history of Ovarian cancer Prostate cancer Myocardial infarction Breast cancer Social History Smoking Status: Former smoker Tobacco Type: Cigarettes and Cigars Second Hand Exposure: Yes (as a child); Do You Dip or Chew Tobacco: No; Hx Alcohol Use: No Hx Substance Use: No Preferred Language: Faroese Communication Ability: Effective Visual Impairment: No Limitations Hearing Ability: Hard of Hearing 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 Required: No Beliefs That Will Affect Care: None marital status: Current Living Situation: Other Current Living Situation Comment: living at home with a friend helping with care current occupational status: disabled How many Children do You have: 2 How many Children do You have Comment: family assists with care, also is part of the waiver program so the pt's roommate is able to assist with care through this program Other Information That Helps Us Care for You: No Feels Safe at Home: Yes Safety Concerns: Feels Safe At This Time Childhood Exposure to Second-Hand Smoke: Yes Diet: diabetic Diet Comment: Carb Counts. ([id number], roughly), protein drinks caffeine: Yes (coffee, rarely ) during the past year weight has: remained stable Dental Care, Regularly: No Seatbelt Use: always Sunscreen Use: No Gender Identity: Male Assistive Devices: Prosthesis, Walker and Wheelchair Allergies Allergies Allergy/AdvReac Type Severity Reaction Status Date / Time No Known Allergies Allergy Unknown Verified 08/10/23 13:10 Home Meds Home Medications Medication Instructions Recorded Confirmed aspirin 81 mg tablet,delayed 81 mg PO QAM 05/04/21 08/10/23 release (Mohit Low Dose Aspirin) acetaminophen 500 mg tablet 1,000 mg PO Q8 PRN Pain 07/18/22 08/10/23 (Tylenol Extra Strength) nystatin 100,000 unit/gram topical 1 applic topical BID PRN Skin 07/18/22 08/10/23 powder Irritation insulin aspart U-100 100 unit/mL 0 unit continuous subcutaneous 11/25/22 08/10/23 subcutaneous solution (Novolog infusion DAILY U-100 Insulin aspart) menthol 0.44 %-zinc oxide 20.6 % 1 applic EXT TID 11/25/22 08/10/23 topical ointment (Calmoseptine) zinc oxide 16 % topical ointment 1 applic EXT TID 11/25/22 08/10/23 (Boudreauxs Butt Paste) mupirocin 2 % topical ointment 1 applic topical Q12H 05/12/23 08/10/23 tramadol 50 mg tablet 50 - 100 mg PO Q6 PRN pain 05/22/23 08/10/23 potassium chloride 20 mEq 20 meq PO BID 07/12/23 08/10/23 tablet,extended release Previous Rx's Medication Instructions Recorded atorvastatin 80 mg tablet (Lipitor) 80 mg PO HS #90 tabs 11/15/21 levothyroxine 175 mcg tablet 175 mcg PO QAM #90 tabs 07/01/22 (Synthroid) magnesium oxide 400 mg (241.3 mg 400 mg PO QAM #30 tabs 07/07/22 magnesium) tablet metoprolol tartrate 25 mg tablet 12.5 mg (1/2 x 25 mg) PO BID #90 08/08/22 tabs calcitriol 0.25 mcg capsule 0.25 mcg PO QAM #30 caps 08/19/22 (Rocaltrol) clopidogrel 75 mg tablet (Plavix) 75 mg PO QAM #30 tabs 08/19/22 pantoprazole 40 mg tablet,delayed 40 mg PO DAILY #90 tabs 12/12/22 release (Protonix) Replacement Brakes for Manual #1 ea 05/12/23 Wheelchair trazodone 100 mg tablet 100 mg PO HS #30 tabs 05/17/23 tamsulosin 0.4 mg capsule 0.4 mg PO DAILY #90 caps 05/18/23 cyclobenzaprine 10 mg tablet 10 mg PO Q8H PRN Muscle Spasm #90 06/16/23 tabs Mattress (Air or other) #1 ea 06/19/23 Wheelchair (Manual) (Manual #1 ea 06/19/23 Wheelchair) ferrous sulfate 325 mg (65 mg 325 mg PO BID #60 tabs 06/19/23 iron) tablet,delayed release chlorthalidone 25 mg tablet 25 mg PO QAM #90 tabs 07/03/23 ezetimibe 10 mg tablet 10 mg PO DAILY #30 tabs 07/10/23 folic acid 1 mg tablet 1 mg PO QAM #90 tabs 07/24/23 simethicone 125 mg capsule (Gas-X 125 mg PO DAILY PRN abdominal 07/24/23 Extra Strength) distention #14 caps ondansetron 4 mg disintegrating 4 mg PO Q6H PRN nausea and 07/25/23 tablet vomiting #30 tabs Results & Data (ED) Vital Signs Vital Signs - 24 hr 08/10/23 17:21 08/10/23 17:35 08/10/23 19:35 Temperature 37.0 C 37 C Temperature Source Oral Oral Pulse Rate 88 90 Pulse Rate [Apical] 79 Respiratory Rate 18 18 Respiratory Effort / Characteristics Non-Labored Spontaneous Non-Labored Respiratory Depth Normal Normal Respiratory Pattern Regular Blood Pressure 108/71 Blood Pressure [Right Arm] 114/83 Blood Pressure Mean 83 Blood Pressure Mean [Right Arm] 93 Pulse Oximetry 98 97 Oxygen Delivery Method Room Air Room Air Sepsis Recent Fever Within 48 Hours No Sepsis New/Unexplained Change in Mental Status No Sepsis Action Taken by Nursing No Action Required 08/10/23 20:46 08/10/23 21:30 08/10/23 22:00 Temperature Temperature Source Pulse Rate 76 Pulse Rate [Apical] 76 78 Respiratory Rate 17 18 Respiratory Effort / Characteristics Non-Labored Non-Labored Respiratory Depth Normal Normal Respiratory Pattern Blood Pressure Blood Pressure [Right Arm] 111/73 115/87 Blood Pressure Mean Blood Pressure Mean [Right Arm] 85 96 Pulse Oximetry 95 96 Oxygen Delivery Method Room Air Room Air Sepsis Recent Fever Within 48 Hours Sepsis New/Unexplained Change in Mental Status Sepsis Action Taken by Nursing 08/10/23 22:30 08/10/23 23:02 Temperature Temperature Source Pulse Rate Pulse Rate [Apical] 80 83 Respiratory Rate 18 18 Respiratory Effort / Characteristics Non-Labored Respiratory Depth Normal Respiratory Pattern Blood Pressure Blood Pressure [Right Arm] 139/82 126/71 Blood Pressure Mean Blood Pressure Mean [Right Arm] 101 89 Pulse Oximetry 96 97 Oxygen Delivery Method Room Air Room Air Sepsis Recent Fever Within 48 Hours Sepsis New/Unexplained Change in Mental Status Sepsis Action Taken by Nursing Laboratory Data 08/11/23 06:44 08/11/23 06:44 Lab Results 08/10/23 Range/Units 17:54 WBC 15.00 H (4.8-10.8) K/ul RBC 4.80 (4.70-6.10) M/uL Hgb 12.8 L (14.0-18.0) g/dl Hct 40.5 L (42.0-52.0) % MCV 84.4 (80.0-100.0) fL MCH 26.7 (25.0-34.0) pg MCHC 31.6 L (32.0-36.0) g/dL RDW Std Deviation 45.4 (36.4-46.3) fL RDW Coeff of Chan 14.7 H (11.5-14.5) % Plt Count 399 (130-400) K/uL MPV 9.6 (9.4-12.4) fL Immature Gran % (Auto) 0.6 % Neut % (Auto) 75.0 % Lymph % (Auto) 15.7 % Barron % (Auto) 7.5 % Eos % (Auto) 0.7 % Baso % (Auto) 0.5 % Neut # (Auto) 11.25 H (1.40-6.50) K/uL Lymph # (Auto) 2.36 (1.20-3.40) K/uL Barron # (Auto) 1.13 H (0.11-0.59) K/uL Eos # (Auto) 0.10 (0.00-0.50) K/uL Baso # (Auto) 0.07 (0.00-0.20) K/uL Immature Gran # (Auto) 0.09 (0.01-0.20) K/uL Sodium 135 L (136-145) mmol/L Potassium 3.2 L (3.5-5.1) mmol/L Chloride 94 L (98-107) mmol/L Carbon Dioxide 30 (21-32) mmol/L Anion Gap 11 (3-11) BUN 11 (6-23) mg/dl Creatinine 0.85 (0.6-1.4) mg/dl Est Cr Clr Drug Dosing 62.9 ml/min Est GFR ( Amer) 105.2 ml/min Est GFR (Non-Af Amer) 90.8 ml/min BUN/Creatinine Ratio 12.9 (10-20) Glucose 130 H (70-99(Fasting)) mg/dl Calcium 9.5 (8.6-10.3) mg/dl Administered Medications Calamine/Phenol (Menthol-Zinc Oxide 360 Appln/120 Gm Tube) 1 appln EXT TID LIZZY Stop: 09/10/23 08:59 Last Admin: 08/11/23 08:49 Dose: 1 appln Documented By: LCS Calcitriol (Calcitriol 0.25 Mcg Capsule) 0.25 mcg PO QAM [facility] Stop: 09/10/23 08:59 Last Admin: 08/11/23 08:22 Dose: 0.25 mcg Documented By: AKP Chlorthalidone (Chlorthalidone 25 Mg Tab) 25 mg PO QAM [facility] Stop: 09/10/23 08:59 Last Admin: 08/11/23 08:23 Dose: 25 mg Documented By: WILMER Ezetimibe (Ezetimibe 10 Mg Tab) 10 mg PO DAILY LIZZY Stop: 09/10/23 08:59 Last Admin: 08/11/23 08:23 Dose: 10 mg Documented By: WILMER Ferrous Sulfate (Ferrous Sulfate 325 Mg Tab) 325 mg PO BID LIZZY Stop: 09/10/23 08:59 Last Admin: 08/11/23 08:23 Dose: 325 mg Documented By: WILMER Folic Acid (Folic Acid 1 Mg Tab) 1 mg PO QAM [facility] Stop: 09/10/23 08:59 Last Admin: 08/11/23 08:23 Dose: 1 mg Documented By: WILMER Lactated Ringer's (Lr) 1,000 mls @ 100 mls/hr IV .Q10H [facility] Stop: 09/10/23 01:43 Last Admin: 08/11/23 08:14 Dose: 100 mls/hr Documented By: Admin: 08/11/23 02:03 Dose: Not Given Documented By: ADOLFO Insulin Aspart (Insulin, Rapid-Acting Pump) 1 each SC [facility]; Protocol Stop: 09/10/23 11:29 Last Admin: 08/11/23 12:51 Dose: 1 each Documented By: CHIP Co-signed By: WILMER Levothyroxine Sodium (Levothyroxine Sodium 175 Mcg Tablet) 175 mcg PO DAILYBB [facility] Stop: 09/10/23 06:29 Last Admin: 08/11/23 06:30 Dose: 175 mcg Documented By: ADOLFO Metoprolol Tartrate (Metoprolol Tartrate 25 Mg Tab) 12.5 mg PO BID [facility] Stop: 09/10/23 08:59 Last Admin: 08/11/23 08:23 Dose: 12.5 mg Documented By: WILMER Mupirocin (Mupirocin 2% Oint 22 Gm Tube) 1 appln TOP Q12H [facility] Stop: 09/10/23 08:59 Last Admin: 08/11/23 08:49 Dose: 1 appln Documented By: CHIP Pantoprazole Sodium (Pantoprazole 40 Mg Tab) 40 mg PO DAILY [facility] Stop: 09/10/23 08:59 Last Admin: 08/11/23 08:24 Dose: 40 mg Documented By: WILMER Petrolatum (Butt Paste (Zinc Oxide 16%) 171 Appln/57 Gm Jar) 1 appln EXT TID LIZZY Stop: 09/10/23 08:59 Last Admin: 08/11/23 08:48 Dose: 1 appln Documented By: CHIP Potassium Chloride (Potassium Chloride Crtab 20 Meq Tabcr) 20 meq PO BID LIZZY Stop: 09/10/23 08:59 Last Admin: 08/11/23 08:24 Dose: 20 meq Documented By: WILMER Tamsulosin HCl (Tamsulosin Hcl 0.4 Mg Cap) 0.4 mg PO DAILY LIZZY Stop: 09/10/23 08:59 Last Admin: 08/11/23 08:24 Dose: 0.4 mg Documented By: WILMER Discontinued Medications Piperacillin Sod/Tazobactam Sod (Zosyn) 4.5 gm in 100 mls @ 200 mls/hr IV NOW ONE Stop: 08/10/23 23:59 Last Infusion: 08/11/23 00:01 Dose: Infused Documented By: Admin: 08/10/23 23:31 Dose: 200 mls/hr Documented By: CHASITY Lactated Ringer's (Lr) 1,000 mls @ 100 mls/hr IV .Q10H [facility] Stop: 08/12/23 07:14 Last Infusion: 08/11/23 02:52 Dose: Infused Documented By: Admin: 08/11/23 01:27 Dose: 100 mls/hr Documented By: FATEMEH Insulin Aspart (Insulin Aspart Per Unit Charge) 0 units SC ACHS LIZZY Stop: 09/10/23 07:29 Last Admin: 08/11/23 11:59 Dose: Not Given Documented By: Admin: 08/11/23 06:51 Dose: Not Given Documented By: ADOLFO Co-signed By: CHIP Ioversol (Optiray 320 500ml) 77 ml IV ONCE ONE Stop: 08/10/23 20:10 Last Admin: 08/10/23 20:09 Dose: 77 ml Documented By: WILMER Potassium Chloride (Potassium Chloride Crtab 20 Meq Tabcr) 20 meq PO NOW STA Stop: 08/10/23 23:19 Last Admin: 08/10/23 23:31 Dose: 20 meq Documented By: CHASITY Imaging Data Radiologist's Impression: Abdomen/Pelvis CT 08/10/23 18:32 Exam(s): CT ABDOMEN + PELVIS With Contrast IV Amt: 77 ml optiray 320 EXAM: CT Abdomen and Pelvis With Intravenous Contrast CLINICAL HISTORY: Bleeding perineal wound. TECHNIQUE: Axial computed tomography images of the abdomen and pelvis with intravenous contrast. CTDI is 15.43 mGy and DLP is 1161.81 mGy-cm. Automated exposure control was utilized for the study. A dose lowering technique was utilized adhering to the principles of ALARA. CONTRAST: Patient received 77 ml optiray 320 of IV contrast COMPARISON: CT abdomen and pelvis without contrast dated 07/12/2023 FINDINGS: Lung bases: Curvilinear changes noted at the lung bases. No consolidation. ABDOMEN: Liver: Unremarkable. No mass. Gallbladder and bile ducts: The gallbladder is surgically absent, new from the previous examination. There is minimal residual edema in the mo hepatis. No loculated fluid collection or abscess. No biliary dilatation. Pancreas: Unremarkable. No mass. No ductal dilation. Spleen: Unremarkable. No splenomegaly. Adrenals: Unremarkable. No mass. Kidneys and ureters: Unremarkable. No solid mass. No hydronephrosis. Stomach and bowel: There is persistent, although questionably less prominent circumferential mucosal thickening of the distal rectosigmoid colon. There is minimal improvement in the presacral stranding. No bowel obstruction. Mucosal prominence of the entire colon with complete decompression appears similar to the previous examination, accounting for differences in contrast-enhancement technique.. A diverting colostomy is again noted in the left lower quadrant. No acute abnormality involving the diverting colostomy identified. PELVIS: Appendix: No findings to suggest acute appendicitis. Bladder: Similar mild bladder wall thickening noted with incomplete distention. Similar trabeculation with subcentimeter calcifications noted posteriorly. One appears to be intraluminal and what appears to be within the wall. Reproductive: Unremarkable as visualized. Subperitoneal space: The previously noted surgical packing in the left perirectal space in the left ischiorectal fossa remains. No appreciable fluid is identified with some gas noted anteriorly. No significant fat stranding of the ischiorectal fat. No identifiable hematoma. ABDOMEN and PELVIS: Intraperitoneal space: Unremarkable. No free air. No significant fluid collection. Bones/joints: No acute fracture. No dislocation. Soft tissues: See above and below. Vasculature: Extensive atherosclerotic calcification aorta and iliac arteries. No appreciable alteration from the prior examination. Postsurgical changes involving both inguinal regions consistent with prior arterial bypass procedures. No abdominal aortic aneurysm. Lymph nodes: Unremarkable. No enlarged lymph nodes. IMPRESSION: 1. The previously noted surgical packing in the left perirectal space in the left ischiorectal fossa remains. No appreciable fluid is identified with some gas noted anteriorly. No significant fat stranding of the ischiorectal fat. No identifiable hematoma. 2. There is persistent, although questionably less prominent circumferential mucosal thickening of the distal rectosigmoid colon. There is minimal improvement in the presacral stranding. No proximal bowel obstruction. No pneumatosis or pneumoperitoneum. 3. No bowel obstruction. Mucosal prominence of the entire colon with complete decompression appears similar to the previous examination, accounting for differences in contrast-enhancement technique. Given stability, this is presumed related to decompression. A diverting colostomy is again noted in the left lower quadrant. No acute abnormality involving the diverting colostomy identified. No pneumoperitoneum. 4. The gallbladder is surgically absent, new from the previous examination. There is minimal residual edema in the mo hepatis. No loculated fluid collection or abscess. No biliary dilatation. Electronically signed by: Prince Lee MD 08/10/23 21:[address] 08/10/23 20:01 Exam(s): CT EXTREMITY LEFT LOWER With Contrast IV Amt: 77 ml optiray 320 EXAM: CT Left Lower Extremity With Intravenous Contrast CLINICAL HISTORY: Inguinal abscess. TECHNIQUE: Axial computed tomography images of the left lower extremity with intravenous contrast. CTDI is 15.43 mGy and DLP is 1161.81 mGy-cm. Automated exposure control was utilized for the study. A dose lowering technique was utilized adhering to the principles of ALARA. CONTRAST: Patient received 77 ml optiray 320 of IV contrast COMPARISON: No relevant prior studies available. FINDINGS: Bones/joints: A left AKA is noted. Degenerative changes of the hip. The amputation is noted at the mid diaphysis of the femur. No acute fracture. No dislocation. Soft tissues: There is no evidence for a loculated fluid collection, subcutaneous emphysema or significant fat stranding at the left inguinal region. Soft tissues overlie the femoral stump. The muscle bundles are somewhat atrophic, as expected. No intramuscular hematoma or abnormality. Vasculature: There are postsurgical changes noted at the left groin with evidence of a previous bypass and long segment stents in the left superficial femoral artery. There is extensive arterial calcification of the regional arterial system. Tubes, lines and devices: For findings regarding the left perineal/perirectal drain, please see the CT report of the abdomen and pelvis performed concurrently. IMPRESSION: Postsurgical changes noted at the left inguinal region, as detailed above. There is no evidence for a loculated fluid collection, subcutaneous emphysema or significant fat stranding at the left inguinal region. Electronically signed by: Prince Lee MD 08/10/23 21:14 PM Discharge Plan Visit Data Chief Complaint: Rectal Bleed Stated Complaint: RECTAL BLEED ED Provider: Rachel Lion Discharge Problem: Dehiscence of wound Patient Disposition: Admitted As Inpatient Discharge Instructions Interventions: ED Discharge Assessment Last Done: 08/11/23 00:34
[2023-08-10 19:15] LABS: Basophils # (auto) 0.07 K/uL (0.00-0.20); Basophils % (auto) 0.5 %; Eosinophils % (auto) 0.7 %; Hematocrit (blood only) 40.5 % (42.0-52.0); Hemoglobin 12.8 g/dl (14.0-18.0); Immature Granulocytes # (auto) 0.09 K/uL (0.01-0.20); Immature Granulocytes % (auto) 0.6 %; Lymphocytes # (auto) 2.36 K/uL (1.20-3.40); Lymphocytes % (auto) 15.7 %; Mean Corpuscular Hemoglobin 26.7 pg (25.0-34.0); Mean Corpuscular Hgb Conc 31.6 g/dL (32.0-36.0); Mean Corpuscular Volume 84.4 fL (80.0-100.0); Mean Platelet Volume 9.6 fL (9.4-12.4); Monocytes # (auto) 1.13 K/uL (0.11-0.59); Monocytes % (auto) 7.5 %; Neutrophils # (auto) 11.25 K/uL (1.40-6.50); Platelet Count 399 K/uL (130-400); RDW Coefficient of Variation 14.7 % (11.5-14.5); RDW Standard Deviation 45.4 fL (36.4-46.3)
[2023-08-10 19:33] LABS: BUN Creatinine Ratio 12.9 (10-20); Calcium 9.5 mg/dl (8.6-10.3); Creatinine Clr Calc Pharmacy 62.9 ml/min; Est GFR (African American) 105.2 ml/min; Est GFR (Non-African American) 90.8 ml/min; Potassium 3.2 mmol/L (3.5-5.1)
[2023-08-10] MEDS ORDERED: OPTIRAY 320 500ml IV ONE (20:09)
--- NOTE | 2023-08-10 21:15 | CT Scan Report ---
Exam(s): CT EXTREMITY LEFT LOWER With Contrast IV Amt: 77 ml optiray 320 EXAM: CT Left Lower Extremity With Intravenous Contrast CLINICAL HISTORY: Inguinal abscess. TECHNIQUE: Axial computed tomography images of the left lower extremity with intravenous contrast. CTDI is 15.43 mGy and DLP is 1161.81 mGy-cm. Automated exposure control was utilized for the study. A dose lowering technique was utilized adhering to the principles of ALARA. CONTRAST: Patient received 77 ml optiray 320 of IV contrast COMPARISON: No relevant prior studies available. FINDINGS: Bones/joints: A left AKA is noted. Degenerative changes of the hip. The amputation is noted at the mid diaphysis of the femur. No acute fracture. No dislocation. Soft tissues: There is no evidence for a loculated fluid collection, subcutaneous emphysema or significant fat stranding at the left inguinal region. Soft tissues overlie the femoral stump. The muscle bundles are somewhat atrophic, as expected. No intramuscular hematoma or abnormality. Vasculature: There are postsurgical changes noted at the left groin with evidence of a previous bypass and long segment stents in the left superficial femoral artery. There is extensive arterial calcification of the regional arterial system. Tubes, lines and devices: For findings regarding the left perineal/perirectal drain, please see the CT report of the abdomen and pelvis performed concurrently. IMPRESSION: Postsurgical changes noted at the left inguinal region, as detailed above. There is no evidence for a loculated fluid collection, subcutaneous emphysema or significant fat stranding at the left inguinal region. Electronically signed by: Prince Lee MD 08/10/23 21:14 PM
--- NOTE | 2023-08-10 21:41 | CT Scan Report ---
Exam(s): CT ABDOMEN + PELVIS With Contrast IV Amt: 77 ml optiray 320 EXAM: CT Abdomen and Pelvis With Intravenous Contrast CLINICAL HISTORY: Bleeding perineal wound. TECHNIQUE: Axial computed tomography images of the abdomen and pelvis with intravenous contrast. CTDI is 15.43 mGy and DLP is 1161.81 mGy-cm. Automated exposure control was utilized for the study. A dose lowering technique was utilized adhering to the principles of ALARA. CONTRAST: Patient received 77 ml optiray 320 of IV contrast COMPARISON: CT abdomen and pelvis without contrast dated 07/12/2023 FINDINGS: Lung bases: Curvilinear changes noted at the lung bases. No consolidation. ABDOMEN: Liver: Unremarkable. No mass. Gallbladder and bile ducts: The gallbladder is surgically absent, new from the previous examination. There is minimal residual edema in the mo hepatis. No loculated fluid collection or abscess. No biliary dilatation. Pancreas: Unremarkable. No mass. No ductal dilation. Spleen: Unremarkable. No splenomegaly. Adrenals: Unremarkable. No mass. Kidneys and ureters: Unremarkable. No solid mass. No hydronephrosis. Stomach and bowel: There is persistent, although questionably less prominent circumferential mucosal thickening of the distal rectosigmoid colon. There is minimal improvement in the presacral stranding. No bowel obstruction. Mucosal prominence of the entire colon with complete decompression appears similar to the previous examination, accounting for differences in contrast-enhancement technique.. A diverting colostomy is again noted in the left lower quadrant. No acute abnormality involving the diverting colostomy identified. PELVIS: Appendix: No findings to suggest acute appendicitis. Bladder: Similar mild bladder wall thickening noted with incomplete distention. Similar trabeculation with subcentimeter calcifications noted posteriorly. One appears to be intraluminal and what appears to be within the wall. Reproductive: Unremarkable as visualized. Subperitoneal space: The previously noted surgical packing in the left perirectal space in the left ischiorectal fossa remains. No appreciable fluid is identified with some gas noted anteriorly. No significant fat stranding of the ischiorectal fat. No identifiable hematoma. ABDOMEN and PELVIS: Intraperitoneal space: Unremarkable. No free air. No significant fluid collection. Bones/joints: No acute fracture. No dislocation. Soft tissues: See above and below. Vasculature: Extensive atherosclerotic calcification aorta and iliac arteries. No appreciable alteration from the prior examination. Postsurgical changes involving both inguinal regions consistent with prior arterial bypass procedures. No abdominal aortic aneurysm. Lymph nodes: Unremarkable. No enlarged lymph nodes. IMPRESSION: 1. The previously noted surgical packing in the left perirectal space in the left ischiorectal fossa remains. No appreciable fluid is identified with some gas noted anteriorly. No significant fat stranding of the ischiorectal fat. No identifiable hematoma. 2. There is persistent, although questionably less prominent circumferential mucosal thickening of the distal rectosigmoid colon. There is minimal improvement in the presacral stranding. No proximal bowel obstruction. No pneumatosis or pneumoperitoneum. 3. No bowel obstruction. Mucosal prominence of the entire colon with complete decompression appears similar to the previous examination, accounting for differences in contrast-enhancement technique. Given stability, this is presumed related to decompression. A diverting colostomy is again noted in the left lower quadrant. No acute abnormality involving the diverting colostomy identified. No pneumoperitoneum. 4. The gallbladder is surgically absent, new from the previous examination. There is minimal residual edema in the mo hepatis. No loculated fluid collection or abscess. No biliary dilatation. Electronically signed by: Prince Lee MD 08/10/23 21:39 PM
[2023-08-10] MEDS ORDERED: POTASSIUM CHLORIDE CRTAB 20 MEQ TABCR PO STA (23:18)
--- NOTE | 2023-08-10 23:21 | History & Physical Report ---
Date of Service August 10, 2023 Assessment & Plan (1) Wound of left groin: Plan: Admit to med/telemetry -Left proximal large open wound with Duarte drain in place. No gush of bleeding -Hgb 12.8, stable, no tachycardia, normotensive -Surgery consulted -IV Zosyn once -NPO at midnight -LR 100 ml/hr at midnight -CBC am (2) Chronic ulcer of sacral region: Plan: chronic Wound care daily (3) Anemia: Plan: continue Folic acid and ferrous sulfate CBC am (4) Peripheral arterial disease: Plan: Chronic. s/p bilateral lower extremities amputation Continue aspirin, clopidogrel (5) Chronic kidney disease, stage III (moderate): Plan: Cr 0.85 on baseline Avoid nephrotoxic medications (6) Aortic stenosis: Plan: s/p bioprosthetic valve in 2016 continue home medication (7) Diabetic peripheral neuropathy associated with type 1 diabetes mellitus: Plan: Insulin pump at home Insulin sliding scale Hold Lantus for now due to NPO, consider restarting tomorrow BSG 90-140 Plan Code: full code dispo: Med/telemetry DVT prophylaxis: low risk for now, consider if prolonged hospitalization diet: DM1 now, NPO at midnight consult: Surgery History of Present Illness Primary Care Provider: Jeremias Morton, DO 68 y/o male with PMH of chronic sacral ulcer, PAD, above-knee amputation, below- knee amputation, CKD, Hypothyroidism, DM2. Aortic stenosis s/p bioprosthetic valve in 2016, CAD s/ single vessel coronary bypass (2016) and a colostomy bag here due to bleeding wound on sacral area. Patient states he had a Duarte drain placed on January 2023 due to an abscess. He refers the plan was to drain for a long time because of poor healing. He refers the wound usually bleed but today he it was a gush of blood when he stand up. Patient refers the surgery was on [facility] by Dr. Vides. He additionally had a recent cholecystectomy done on 07/17, and had been followed by [facility] surgery outpatient. He denied any SOB, dizziness,lightheaded, syncope, presyncope, fever, chills, diarrhea, nausea, vomits, abdominal pain, chest pain, palpitations or any other symptoms. In the ER: has been hypotensive, non tachycardic, no fever. Hgb at 12.8. Mild leukocytosis. Hypokalemia noted, Potassium replaced now. ER. IV Zosyn ordered once. Femur CT: Postsurgical changes noted at the left inguinal region, as detailed above. There is no evidence for a loculated fluid collection, subcutaneous emphysema or significant fat stranding at the left inguinal region.CT abdomen: 1. No appreciable fluid is identified with some gas noted anteriorly. No significant fat stranding of the ischiorectal fat. No identifiable hematoma. 2.There is persistent, although questionably less prominent circumferential mucosal thickening of the distal rectosigmoid colon. Allergies Allergy/AdvReac Type Severity Reaction Status Date / Time No Known Allergies Allergy Unknown Verified 08/10/23 13:10 Home Medications Medication Instructions Recorded Confirmed Type aspirin 81 mg tablet,delayed 81 mg PO QAM 05/04/21 08/10/23 History release (Mohit Low Dose Aspirin) atorvastatin 80 mg tablet (Lipitor) 80 mg PO HS #90 tabs 11/15/21 08/10/23 Rx levothyroxine 175 mcg tablet 175 mcg PO QAM #90 tabs 07/01/22 08/10/23 Rx (Synthroid) magnesium oxide 400 mg (241.3 mg 400 mg PO QAM #30 tabs 07/07/22 08/10/23 Rx magnesium) tablet acetaminophen 500 mg tablet 1,000 mg PO Q8 PRN Pain 07/18/22 08/10/23 History (Tylenol Extra Strength) nystatin 100,000 unit/gram topical 1 applic topical BID PRN Skin 07/18/22 08/10/23 History powder Irritation metoprolol tartrate 25 mg tablet 12.5 mg (1/2 x 25 mg) PO BID #90 08/08/22 08/10/23 Rx tabs calcitriol 0.25 mcg capsule 0.25 mcg PO QAM #30 caps 08/19/22 08/10/23 Rx (Rocaltrol) clopidogrel 75 mg tablet (Plavix) 75 mg PO QAM #30 tabs 08/19/22 08/10/23 Rx insulin aspart U-100 100 unit/mL 0 unit continuous subcutaneous 11/25/22 08/10/23 History subcutaneous solution (Novolog infusion DAILY U-100 Insulin aspart) menthol 0.44 %-zinc oxide 20.6 % 1 applic EXT TID 11/25/22 08/10/23 History topical ointment (Calmoseptine) zinc oxide 16 % topical ointment 1 applic EXT TID 11/25/22 08/10/23 History (Boudreauxs Butt Paste) pantoprazole 40 mg tablet,delayed 40 mg PO DAILY #90 tabs 12/12/22 08/10/23 Rx release (Protonix) Replacement Brakes for Manual #1 ea 05/12/23 08/10/23 Rx Wheelchair mupirocin 2 % topical ointment 1 applic topical Q12H 05/12/23 08/10/23 History trazodone 100 mg tablet 100 mg PO HS #30 tabs 05/17/23 08/10/23 Rx tamsulosin 0.4 mg capsule 0.4 mg PO DAILY #90 caps 05/18/23 08/10/23 Rx tramadol 50 mg tablet 50 - 100 mg PO Q6 PRN pain 05/22/23 08/10/23 History cyclobenzaprine 10 mg tablet 10 mg PO Q8H PRN Muscle Spasm #90 06/16/23 08/10/23 Rx tabs Mattress (Air or other) #1 ea 06/19/23 08/10/23 Rx Wheelchair (Manual) (Manual #1 ea 06/19/23 08/10/23 Rx Wheelchair) ferrous sulfate 325 mg (65 mg 325 mg PO BID #60 tabs 06/19/23 08/10/23 Rx iron) tablet,delayed release chlorthalidone 25 mg tablet 25 mg PO QAM #90 tabs 07/03/23 08/10/23 Rx ezetimibe 10 mg tablet 10 mg PO DAILY #30 tabs 07/10/23 08/10/23 Rx potassium chloride 20 mEq 20 meq PO BID 07/12/23 08/10/23 History tablet,extended release folic acid 1 mg tablet 1 mg PO QAM #90 tabs 07/24/23 08/10/23 Rx simethicone 125 mg capsule (Gas-X 125 mg PO DAILY PRN abdominal 07/24/23 08/10/23 Rx Extra Strength) distention #14 caps ondansetron 4 mg disintegrating 4 mg PO Q6H PRN nausea and 07/25/23 08/10/23 Rx tablet vomiting #30 tabs Past Med/Surg History Medical History Cellulitis of perineum Cellulitis of scrotum BPH (benign prostatic hyperplasia) Anemia Above knee amputation of left lower extremity Surgical wound, non healing Stage III pressure ulcer 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) Hx MRSA infection 01/2022 (left heel) Type I diabetes mellitus, uncontrolled Candidal diaper rash History of colon polyps History of Clostridium difficile infection s/p treatment (2020) Below-knee amputation of right lower extremity Clostridium difficile colitis DVT prophylaxis Folate deficiency Constipation Anemia COPD (chronic obstructive pulmonary disease) GERD (gastroesophageal reflux disease) Dyslipidemia Hypertension Hypothyroidism Vitamin D deficiency Aortic stenosis s/p porcine valve replacement (2015) + CABG x1 Follows with [facility] cardio CAD (coronary artery disease) s/p CABG x 1 (2015) Surgical History Hx laparoscopic cholecystectomy (07/17/23) Robotic assisted Laparoscopic Cholecystectomy(Not Applicable) - Markus Dawson, DO, FACS Hx of cystoscopy w/stent placement; stent then removed S/P femoral-tibial bypass Below-knee amputation of right lower extremity H/O vascular surgery Right Femoral to Posterior tibial Prosthetic Bypass Graft(Right) History of skin graft Split Thickness Skin Graft of Left Lateral Ankle (11/18/20): LMA#5, atraumatic x1 at [facility] Hx of surgical procedure Left Leg Wound Debridement and Irrigation History of arterial bypass of lower extremity Left femoral to PT composite bypass graft (06/2020) History of carpal tunnel release R/L History of tooth extraction History of tonsillectomy History of myringotomy w/tubes bilat. S/P femoropopliteal bypass surgery Right fem-pop bypass graft (01/19/21): Grade 2 view, MAC 3.0, ETT 8.0 at [facility] History of cardiac cath x2, most recent 2016 > no stents (subsequent CABG with AVR in 2015); [facility] History of umbilical hernia repair S/P insertion of iliac artery stent B/L iliac stent placement (2014) H/O endarterectomy R common femoral (11/2018) History of open reduction and internal fixation (ORIF) procedure LLE () History of colonoscopy History of esophagogastroduodenoscopy (EGD) History of aortic valve replacement 2016 [place] H/O cataract extraction R/L History of ankle surgery LEFT ANKLE +HARDWARE REMOVED History of coronary artery bypass graft CABG x1 + AVR (2016) 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 Left transmetatarsal amputation (11/23/21): LMA# 5.0 at [facility]. No issues noted per post-op anesthesia progress note. HX 1 SX TO REMOVE ALL TOES LEFT FOOT NOVEMBER 2021 Family History Brother Family history of diabetes mellitus Sister Family history of diabetes mellitus Mother Family history of diabetes mellitus Grandmother (Maternal) Family history of diabetes mellitus Uncle Family hx of colon cancer Colorectal cancer Father Family history of esophageal cancer Sister Family history of diabetes mellitus Other No family history of adverse response to anesthesia Denies family history of Ovarian cancer Prostate cancer Myocardial infarction Breast cancer Social History Smoking Status: Former smoker Tobacco Type: Cigarettes and Cigars Second Hand Exposure: Yes (as a child); Do You Dip or Chew Tobacco: No; Hx Alcohol Use: No Hx Substance Use: No Preferred Language: Urdu Communication Ability: Effective Visual Impairment: No Limitations Hearing Ability: Hard of Hearing 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 Beliefs That Will Affect Care: None marital status: Current Living Situation: Other Current Living Situation Comment: living at home with a friend helping with care current occupational status: disabled How many Children do You have: 2 How many Children do You have Comment: family assists with care, also is part of the waiver program so the pt's roommate is able to assist with care through this program Other Information That Helps Us Care for You: No Feels Safe at Home: Yes Safety Concerns: Feels Safe At This Time Childhood Exposure to Second-Hand Smoke: Yes Diet: diabetic Diet Comment: Carb Counts. ([id number], roughly), protein drinks caffeine: Yes (coffee, rarely ) during the past year weight has: remained stable Dental Care, Regularly: No Seatbelt Use: always Sunscreen Use: No Gender Identity: Male Assistive Devices: Prosthesis, Walker and Wheelchair Review of Systems Review of Systems: as per HPI Physical Exam Constitutional: WD/WN, vitals as above ENMT: external ear and nose normal, oropharynx normal Respiratory: normal respiratory effort, lungs clear to auscultation Cardiovascular: RRR, no murmur, no edema Gastrointestinal (Abdomen): normal bowel sounds, soft, nontender, no hepatosplenomegaly (colostomy bag in place) Skin: no rashes, warm and dry Genitourinary: Left proximal tight shows an opening large wound with [place] drain. No gush of bleeding Results & Data Results & Data Vital Signs (Past 12 Hours) Vital Signs Temp Pulse Pulse Resp BP BP Pulse Ox 08/10/23 23:02 83 18 126/71 97 08/10/23 22:30 80 18 139/82 96 08/10/23 22:00 78 18 115/87 96 08/10/23 21:30 76 08/10/23 20:46 76 17 111/73 95 08/10/23 19:35 37 C 79 18 114/83 97 08/10/23 17:35 90 08/10/23 17:21 37.0 C 88 18 108/71 98 O2 Del Method 08/10/23 23:02 Room Air 08/10/23 22:30 Room Air 08/10/23 22:00 Room Air 08/10/23 21:30 08/10/23 20:46 Room Air 08/10/23 19:35 Room Air 08/10/23 17:35 08/10/23 17:21 Room Air Code Status & VTE Plan VTE Prophylaxis Plan VTE Prophylaxis will be ordered: Yes Supervising Physician Co-Signing Physician Notes Patient seen and examined, chart reviewed, case discussed with Dr. Stu Briceno and I agree with the assessment and plan as above Resident Activity Tracking Resident Involvement: Resident Care Provided Care Provided: Adult Hospital Medicine
[2023-08-10] MEDS ORDERED: PIPERACILLIN/TAZOBACTAM 4.5 GM/100 ML BAG IV ONE (23:30)
[2023-08-11] MEDS ORDERED: LACTATED RINGER'S 1,000 ML IV SCH (01:15)
[2023-08-11] MEDS ORDERED: MICONAZOLE NITRATE POWDER 85 GM EXT PRN (01:44)
[2023-08-11] MEDS ORDERED: SIMETHICONE 80 MG CHEW PO PRN (01:44)
[2023-08-11] MEDS ORDERED: GLUCOSE 10 TAB/TUBE PO PRN (01:44)
[2023-08-11] MEDS ORDERED: CYCLOBENZAPRINE HCL 10 MG TAB PO PRN (01:44)
[2023-08-11] MEDS ORDERED: ACETAMINOPHEN 325 MG TAB PO PRN (01:44)
[2023-08-11] MEDS ORDERED: DEXTROSE 50% 50 ML SYRINGE IV PRN (01:44)
[2023-08-11] MEDS ORDERED: ONDANSETRON INJ 2 MG/ML 2 ML VIAL IV PRN (01:44)
[2023-08-11] MEDS ORDERED: GLUCOSE 40% GEL 15 GM TUBE PO PRN (01:44)
[2023-08-11] MEDS ORDERED: CARBOHYDRATES FOR HYPOGLYCEMIA PO PRN (01:44)
[2023-08-11] MEDS ORDERED: POLYETHYLENE (MIRALAX) 17 GM PACK PO PRN (01:44)
[2023-08-11] MEDS ORDERED: GLUCAGON FOR INJ 1 MG VIAL SQ PRN (01:44)
[2023-08-11] MEDS: LACTATED RINGER'S 1,000 ML IV SCH ×2 (02:03→08:14)
[2023-08-11] MEDS ORDERED: BUTT PASTE (ZINC OXIDE 16%) 171 APPLN/57 GM JAR EXT ONE (02:45)
[2023-08-11] MEDS: LEVOTHYROXINE SODIUM 175 MCG TABLET PO SCH (06:30)
[2023-08-11] MEDS: INSULIN ASPART PER UNIT CHARGE SC SCH ×2 (06:51→11:59)
[2023-08-11 07:22] LABS: Basophils % (auto) 0.8 %; Eosinophils # (auto) 0.49 K/uL (0.00-0.50); Eosinophils % (auto) 3.9 %; Hemoglobin 12.1 g/dl (14.0-18.0); Immature Granulocytes # (auto) 0.05 K/uL (0.01-0.20); Immature Granulocytes % (auto) 0.4 %; Lymphocytes # (auto) 1.89 K/uL (1.20-3.40); Mean Corpuscular Hemoglobin 27.6 pg (25.0-34.0); Mean Corpuscular Hgb Conc 33.6 g/dL (32.0-36.0); Mean Corpuscular Volume 82.2 fL (80.0-100.0); Mean Platelet Volume 9.5 fL (9.4-12.4); Monocytes # (auto) 1.42 K/uL (0.11-0.59); Monocytes % (auto) 11.3 %; Neutrophils # (auto) 8.65 K/uL (1.40-6.50); Neutrophils % (auto) 68.6 %; Platelet Count 364 K/uL (130-400); RDW Coefficient of Variation 14.6 % (11.5-14.5); RDW Standard Deviation 44.2 fL (36.4-46.3); Red Blood Count 4.38 M/uL (4.70-6.10)
[2023-08-11 07:44] LABS: Albumin Globulin Ratio 0.8 (0.9-2); Albumin Level 3.2 gm/dl (3.4-5.0); BUN Creatinine Ratio 14.8 (10-20); Bilirubin,Total 0.9 mg/dl (0.2-1.0); Calcium 8.8 mg/dl (8.6-10.3); Creatinine Clr Calc Pharmacy 86.8 ml/min; Est GFR (African American) 107.3 ml/min; Est GFR (Non-African American) 92.6 ml/min; Globulin 3.8 gm/dl (2.5-4.0); Potassium 3.3 mmol/L (3.5-5.1)
[2023-08-11 08:02] LABS: Estimated Average Glucose 151 mg/dl; Hemoglobin A1C 6.9 % (4.5-5.6)
[2023-08-11] MEDS: CALCITRIOL 0.25 MCG CAPSULE PO SCH (08:22)
[2023-08-11] MEDS: ASPIRIN 81 MG ECTAB PO SCH ×2 (08:22→15:21)
[2023-08-11] MEDS: FERROUS SULFATE 325 MG TAB PO SCH ×2 (08:23→21:02)
[2023-08-11] MEDS: FOLIC ACID 1 MG TAB PO SCH (08:23)
[2023-08-11] MEDS: METOPROLOL TARTRATE 25 MG TAB PO SCH ×2 (08:23→21:01)
[2023-08-11] MEDS: EZETIMIBE 10 MG TAB PO SCH (08:23)
[2023-08-11] MEDS: CLOPIDOGREL BISULFATE 75 MG TAB PO SCH ×2 (08:23→15:00)
[2023-08-11] MEDS: CHLORTHALIDONE 25 MG TAB PO SCH (08:23)
[2023-08-11] MEDS: TAMSULOSIN HCL 0.4 MG CAP PO SCH (08:24)
[2023-08-11] MEDS: POTASSIUM CHLORIDE CRTAB 20 MEQ TABCR PO SCH ×2 (08:24→21:03)
[2023-08-11] MEDS: PANTOprazole 40 MG TAB PO SCH (08:24)
[2023-08-11] MEDS: BUTT PASTE (ZINC OXIDE 16%) 171 APPLN/57 GM JAR EXT SCH ×3 (08:48→21:05)
[2023-08-11] MEDS: MUPIROCIN 2% OINT 22 GM TUBE TOP SCH ×2 (08:49→21:06)
[2023-08-11] MEDS: MENTHOL-ZINC OXIDE 360 APPLN/120 GM TUBE EXT SCH ×3 (08:49→21:05)
[2023-08-11] MEDS ORDERED: INSULIN ASPART 100 UNITS/ML VIAL SC PRN (12:45)
[2023-08-11] MEDS: INSULIN, Rapid-Acting PUMP SC SCH ×3 (12:51→21:04)
--- NOTE | 2023-08-11 14:27 | Surgery Consultation ---
Date of Consultation August 11, 2023 Assessment & Plan (1) Wound of left groin: primary issue I believe is yeast infection. also has some purulent drainage. will hold plavix secondary to bleeding. will obtain fluid cx and begin diflucan and zosyn. family concerned michael drain is no longer present and were unaware if it got dislodged or not...will obain ct scan to verify where michael is located. no abcess to drain currently. once we get infection under control will return to his colorectal surgeon to deal with the fistula/michael Dr. Taylor covering for weekend if any questions/issues. (2) Ambulatory dysfunction: (3) Above knee amputation of left lower extremity: (4) Aortic stenosis: (5) Diabetes type 1, controlled: (6) Peripheral arterial disease: (7) Fungal dermatitis: (8) Cellulitis: History of Present Illness Attending Physician: Cole Atwood MD History of Present Illness pt with extensive medical hx currently being managed for a chronic perineal fistula by [facility]. had a michael drained placed in January of this year and a diverting colostomy placed in March. Presented to ER last night with c/o of bleeding out of this fistula region. he is complaining of soreness in the area. Allergies Allergy/AdvReac Type Severity Reaction Status Date / Time No Known Allergies Allergy Unknown Verified 08/10/23 13:10 Home Medications Medication Instructions Recorded Confirmed Type aspirin 81 mg tablet,delayed 81 mg PO QAM 05/04/21 08/10/23 History release (Mohit Low Dose Aspirin) atorvastatin 80 mg tablet (Lipitor) 80 mg PO HS #90 tabs 11/15/21 08/10/23 Rx levothyroxine 175 mcg tablet 175 mcg PO QAM #90 tabs 07/01/22 08/10/23 Rx (Synthroid) magnesium oxide 400 mg (241.3 mg 400 mg PO QAM #30 tabs 07/07/22 08/10/23 Rx magnesium) tablet acetaminophen 500 mg tablet 1,000 mg PO Q8 PRN Pain 07/18/22 08/10/23 History (Tylenol Extra Strength) nystatin 100,000 unit/gram topical 1 applic topical BID PRN Skin 07/18/22 08/10/23 History powder Irritation metoprolol tartrate 25 mg tablet 12.5 mg (1/2 x 25 mg) PO BID #90 08/08/22 08/10/23 Rx tabs calcitriol 0.25 mcg capsule 0.25 mcg PO QAM #30 caps 08/19/22 08/10/23 Rx (Rocaltrol) clopidogrel 75 mg tablet (Plavix) 75 mg PO QAM #30 tabs 08/19/22 08/10/23 Rx insulin aspart U-100 100 unit/mL 0 unit continuous subcutaneous 11/25/22 08/10/23 History subcutaneous solution (Novolog infusion DAILY U-100 Insulin aspart) menthol 0.44 %-zinc oxide 20.6 % 1 applic EXT TID 11/25/22 08/10/23 History topical ointment (Calmoseptine) zinc oxide 16 % topical ointment 1 applic EXT TID 11/25/22 08/10/23 History (Boudreauxs Butt Paste) pantoprazole 40 mg tablet,delayed 40 mg PO DAILY #90 tabs 12/12/22 08/10/23 Rx release (Protonix) Replacement Brakes for Manual #1 ea 05/12/23 08/10/23 Rx Wheelchair mupirocin 2 % topical ointment 1 applic topical Q12H 05/12/23 08/10/23 History trazodone 100 mg tablet 100 mg PO HS #30 tabs 05/17/23 08/10/23 Rx tamsulosin 0.4 mg capsule 0.4 mg PO DAILY #90 caps 05/18/23 08/10/23 Rx tramadol 50 mg tablet 50 - 100 mg PO Q6 PRN pain 05/22/23 08/10/23 History cyclobenzaprine 10 mg tablet 10 mg PO Q8H PRN Muscle Spasm #90 06/16/23 08/10/23 Rx tabs Mattress (Air or other) #1 ea 06/19/23 08/10/23 Rx Wheelchair (Manual) (Manual #1 ea 06/19/23 08/10/23 Rx Wheelchair) ferrous sulfate 325 mg (65 mg 325 mg PO BID #60 tabs 06/19/23 08/10/23 Rx iron) tablet,delayed release chlorthalidone 25 mg tablet 25 mg PO QAM #90 tabs 07/03/23 08/10/23 Rx ezetimibe 10 mg tablet 10 mg PO DAILY #30 tabs 07/10/23 08/10/23 Rx potassium chloride 20 mEq 20 meq PO BID 07/12/23 08/10/23 History tablet,extended release folic acid 1 mg tablet 1 mg PO QAM #90 tabs 07/24/23 08/10/23 Rx simethicone 125 mg capsule (Gas-X 125 mg PO DAILY PRN abdominal 07/24/23 08/10/23 Rx Extra Strength) distention #14 caps ondansetron 4 mg disintegrating 4 mg PO Q6H PRN nausea and 07/25/23 08/10/23 Rx tablet vomiting #30 tabs Patient History Medical History Cellulitis of perineum Cellulitis of scrotum BPH (benign prostatic hyperplasia) Anemia Above knee amputation of left lower extremity Surgical wound, non healing Stage III pressure ulcer 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) Hx MRSA infection 01/2022 (left heel) Type I diabetes mellitus, uncontrolled Candidal diaper rash History of colon polyps History of Clostridium difficile infection s/p treatment (2020) Below-knee amputation of right lower extremity Clostridium difficile colitis DVT prophylaxis Folate deficiency Constipation Anemia COPD (chronic obstructive pulmonary disease) GERD (gastroesophageal reflux disease) Dyslipidemia Hypertension Hypothyroidism Vitamin D deficiency Aortic stenosis s/p porcine valve replacement (2015) + CABG x1 Follows with [facility] cardio CAD (coronary artery disease) s/p CABG x 1 (2015) Surgical History Hx laparoscopic cholecystectomy (07/17/23) Robotic assisted Laparoscopic Cholecystectomy(Not Applicable) - Markus Dawson, DO, FACS Hx of cystoscopy w/stent placement; stent then removed S/P femoral-tibial bypass Below-knee amputation of right lower extremity H/O vascular surgery Right Femoral to Posterior tibial Prosthetic Bypass Graft(Right) History of skin graft Split Thickness Skin Graft of Left Lateral Ankle (11/18/20): LMA#5, atraumatic x1 at [facility] Hx of surgical procedure Left Leg Wound Debridement and Irrigation History of arterial bypass of lower extremity Left femoral to PT composite bypass graft (06/2020) History of carpal tunnel release R/L History of tooth extraction History of tonsillectomy History of myringotomy w/tubes bilat. S/P femoropopliteal bypass surgery Right fem-pop bypass graft (01/19/21): Grade 2 view, MAC 3.0, ETT 8.0 at [facility] History of cardiac cath x2, most recent 2016 > no stents (subsequent CABG with AVR in 2016); [facility] History of umbilical hernia repair S/P insertion of iliac artery stent B/L iliac stent placement (2014) H/O endarterectomy R common femoral (11/2018) History of open reduction and internal fixation (ORIF) procedure LLE () History of colonoscopy History of esophagogastroduodenoscopy (EGD) [place] [place] H/O cataract extraction R/L History of ankle surgery LEFT ANKLE +HARDWARE REMOVED History of coronary artery bypass graft CABG x1 + AVR (2015) 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 Left transmetatarsal amputation (11/23/21): LMA# 5.0 at [facility]. No issues noted per post-op anesthesia progress note. HX 1 SX TO REMOVE ALL TOES LEFT FOOT NOVEMBER 2021 Family History Brother Family history of diabetes mellitus Sister Family history of diabetes mellitus Mother Family history of diabetes mellitus Grandmother (Maternal) Family history of diabetes mellitus Uncle Family hx of colon cancer Colorectal cancer Father Family history of esophageal cancer Sister Family history of diabetes mellitus Other No family history of adverse response to anesthesia Denies family history of Ovarian cancer Prostate cancer Myocardial infarction Breast cancer Social History Smoking Status: Former smoker Tobacco Type: Cigarettes and Cigars Second Hand Exposure: Yes (as a child); Do You Dip or Chew Tobacco: No; Hx Alcohol Use: No Hx Substance Use: No Preferred Language: Swedish Communication Ability: Effective Visual Impairment: No Limitations Hearing Ability: Hard of Hearing Family And Marriage Counsellor Required: No Beliefs That Will Affect Care: None marital status: Current Living Situation: Other Current Living Situation Comment: living at home with a friend helping with care current occupational status: disabled How many Children do You have: 2 How many Children do You have Comment: family assists with care, also is part of the waiver program so the pt's roommate is able to assist with care through this program Other Information That Helps Us Care for You: No Feels Safe at Home: Yes Safety Concerns: Feels Safe At This Time Childhood Exposure to Second-Hand Smoke: Yes Diet: diabetic Diet Comment: Carb Counts. ([id number], roughly), protein drinks caffeine: Yes (coffee, rarely ) during the past year weight has: remained stable Dental Care, Regularly: No Seatbelt Use: always Sunscreen Use: No Gender Identity: Male Assistive Devices: Prosthesis, Walker and Wheelchair Physical Exam Constitutional: WD/WN, vitals as above no acute distress and not ill appearing Eyes: PERRL, conjunctivae normal, anicteric sclerae EOM intact bilaterally ENMT: external ear and nose normal, oropharynx normal Ears: no hearing impairment Neck: trachea midline, no thyromegaly Respiratory: normal respiratory effort; no respiratory distress and does not use accessory muscles Cardiovascular: Rate/Rhythm: regular rate and regular rhythm Musculoskeletal: bilateral amputee Skin: very excoriated b/l inguinal creases. fistula tract open/draining moderate amount of purulent fluid. michael drain not visible. extremely tender. Psychiatric: Orientation: alert, oriented x 3 and cooperative Results & Data Vital Signs (Past 12 Hours) Vital Signs Temp Pulse Resp BP Pulse Ox O2 Del Method 08/11/23 11:55 36.4 C L 79 18 118/57 L 95 Room Air 08/11/23 07:37 36.6 C 74 18 128/83 96 Room Air 08/11/23 03:32 36.4 C L 74 16 130/80 95 Room Air PG Care Time/CCT Total # of Minutes Spent Total Time Spent with Patient: Total time spent is greater than 50% in coordination of care (as documented) at patient's floor/unit and/or counseling patient: Coding Level of Care Code 15741 INT INP/OBS CARE 3/75MIN Diagnoses Wound of left groin S31.109A Ambulatory dysfunction R26.2 Above knee amputation of left lower extremity S78.112A Aortic stenosis I35.0 Diabetes type 1, controlled E10.9 Peripheral arterial disease I73.9 Fungal dermatitis B36.9 Cellulitis L03.90
--- NOTE | 2023-08-11 14:53 | Hospitalist Progress Note ---
Date of Service August 11, 2023 Assessment & Plan (1) Wound of left groin: Plan: Dressing noted on the left inguinal region Surgery on board recommends continuing IV Zosyn Recommends adding fungal coverage as this could be an yeast infection Recommends holding Plavix due to bleeding Since no surgery recommended, will discontinue n.p.o. discontinue IV fluids (2) Chronic ulcer of sacral region: Plan: chronic Wound care daily (3) Anemia: Plan: continue Folic acid and ferrous sulfate CBC am (4) Peripheral arterial disease: Plan: Chronic. s/p bilateral lower extremities amputation continue aspirin Hold clopidogrel due to bleeding (5) Chronic kidney disease, stage III (moderate): Plan: Cr 0.85 on baseline Avoid nephrotoxic medications (6) Aortic stenosis: Plan: s/p bioprosthetic valve in 2016 continue home medication (7) Diabetic peripheral neuropathy associated with type 1 diabetes mellitus: Plan: Insulin pump at home will allow the patient to use his own insulin pump (8) Hypokalemia: Plan: potassium 3.3 today ordered another 40 mEq of KCl Continue home dose 20 meq BID Plan Code: full code DVT prophylaxis: low risk for now, consider if prolonged hospitalization diet: diabetic diet consult: Surgery Admission and Anticipated Discharge Date Admission Date: August 10, 2023 Subjective Patient denies any chest pain or shortness of breath. Review of Systems Review of Systems: All systems reviewed & are unremarkable except as noted in Subjective Physical Exam Physical Exam: General: Awake, conversant Heart: S1, S2/regular rate and rhythm, no murmur rubs or gallops Lungs: Clear to auscultation bilaterally. Normal effort Abdomen: Soft/nontender/nondistended. No hepatosplenomegaly. Colostomy bag in place Extremities: right below-knee amputation, left above-knee amputation. Dressing on left inguinal area Behavior: Appropriate, cooperative Results & Data Results & Data Vital Signs (Past 12 Hours) Vital Signs Temp Pulse Resp BP Pulse Ox O2 Del Method 08/11/23 14:34 36.7 C 78 18 143/82 H 98 Room Air 08/11/23 11:55 36.4 C L 79 18 118/57 L 95 Room Air 08/11/23 07:37 36.6 C 74 18 128/83 96 Room Air 08/11/23 03:32 36.4 C L 74 16 130/80 95 Room Air Laboratory Results Abnormal lab results 08/10/23 08/11/23 08/11/23 Range/Units 17:54 06:44 06:47 WBC 15.00 H 12.60 H (4.8-10.8) K/ul RBC 4.38 L (4.70-6.10) M/uL Hgb 12.8 L 12.1 L (14.0-18.0) g/dl Hct 40.5 L 36.0 L (42.0-52.0) % MCHC 31.6 L (32.0-36.0) g/dL RDW Coeff of Chan 14.7 H 14.6 H (11.5-14.5) % Neut # (Auto) 11.25 H 8.65 H (1.40-6.50) K/uL [place] # (Auto) 1.13 H 1.42 H (0.11-0.59) K/uL Sodium 135 L (136-145) mmol/L Potassium 3.2 L 3.3 L (3.5-5.1) mmol/L Chloride 94 L 97 L (98-107) mmol/L Carbon Dioxide 33 H (21-32) mmol/L Glucose 130 H 147 H (70-99(Fasting)) mg/dl POC Glucose 141 H (70-99) mg/dl Hemoglobin A1c 6.9 H (4.5-5.6) % Alkaline Phosphatase 112 H (34-104) U/L Albumin 3.2 L (3.4-5.0) gm/dl Albumin/Globulin Ratio 0.8 L (0.9-2) 08/11/23 Range/Units 11:30 WBC (4.8-10.8) K/ul RBC (4.70-6.10) M/uL Hgb (14.0-18.0) g/dl Hct (42.0-52.0) % MCHC (32.0-36.0) g/dL RDW Coeff of Chan (11.5-14.5) % Neut # (Auto) (1.40-6.50) K/uL [place] # (Auto) (0.11-0.59) K/uL Sodium (136-145) mmol/L Potassium (3.5-5.1) mmol/L Chloride (98-107) mmol/L Carbon Dioxide (21-32) mmol/L Glucose (70-99(Fasting)) mg/dl POC Glucose 138 H (70-99) mg/dl Hemoglobin A1c (4.5-5.6) % Alkaline Phosphatase (34-104) U/L Albumin (3.4-5.0) gm/dl Albumin/Globulin Ratio (0.9-2) Diagnostic Findings Abdomen/Pelvis CT 08/10/23 18:32 Exam(s): CT ABDOMEN + PELVIS With Contrast IV Amt: 77 ml optiray 320 EXAM: CT Abdomen and Pelvis With Intravenous Contrast CLINICAL HISTORY: Bleeding perineal wound. TECHNIQUE: Axial computed tomography images of the abdomen and pelvis with intravenous contrast. CTDI is 15.43 mGy and DLP is 1161.81 mGy-cm. Automated exposure control was utilized for the study. A dose lowering technique was utilized adhering to the principles of ALARA. CONTRAST: Patient received 77 ml optiray 320 of IV contrast COMPARISON: CT abdomen and pelvis without contrast dated 07/12/2023 FINDINGS: Lung bases: Curvilinear changes noted at the lung bases. No consolidation. ABDOMEN: Liver: Unremarkable. No mass. Gallbladder and bile ducts: The gallbladder is surgically absent, new from the previous examination. There is minimal residual edema in the mo hepatis. No loculated fluid collection or abscess. No biliary dilatation. Pancreas: Unremarkable. No mass. No ductal dilation. Spleen: Unremarkable. No splenomegaly. Adrenals: Unremarkable. No mass. Kidneys and ureters: Unremarkable. No solid mass. No hydronephrosis. Stomach and bowel: There is persistent, although questionably less prominent circumferential mucosal thickening of the distal rectosigmoid colon. There is minimal improvement in the presacral stranding. No bowel obstruction. Mucosal prominence of the entire colon with complete decompression appears similar to the previous examination, accounting for differences in contrast-enhancement technique.. A diverting colostomy is again noted in the left lower quadrant. No acute abnormality involving the diverting colostomy identified. PELVIS: Appendix: No findings to suggest acute appendicitis. Bladder: Similar mild bladder wall thickening noted with incomplete distention. Similar trabeculation with subcentimeter calcifications noted posteriorly. One appears to be intraluminal and what appears to be within the wall. Reproductive: Unremarkable as visualized. Subperitoneal space: The previously noted surgical packing in the left perirectal space in the left ischiorectal fossa remains. No appreciable fluid is identified with some gas noted anteriorly. No significant fat stranding of the ischiorectal fat. No identifiable hematoma. ABDOMEN and PELVIS: Intraperitoneal space: Unremarkable. No free air. No significant fluid collection. Bones/joints: No acute fracture. No dislocation. Soft tissues: See above and below. Vasculature: Extensive atherosclerotic calcification aorta and iliac arteries. No appreciable alteration from the prior examination. Postsurgical changes involving both inguinal regions consistent with prior arterial bypass procedures. No abdominal aortic aneurysm. Lymph nodes: Unremarkable. No enlarged lymph nodes. IMPRESSION: 1. The previously noted surgical packing in the left perirectal space in the left ischiorectal fossa remains. No appreciable fluid is identified with some gas noted anteriorly. No significant fat stranding of the ischiorectal fat. No identifiable hematoma. 2. There is persistent, although questionably less prominent circumferential mucosal thickening of the distal rectosigmoid colon. There is minimal improvement in the presacral stranding. No proximal bowel obstruction. No pneumatosis or pneumoperitoneum. 3. No bowel obstruction. Mucosal prominence of the entire colon with complete decompression appears similar to the previous examination, accounting for differences in contrast-enhancement technique. Given stability, this is presumed related to decompression. A diverting colostomy is again noted in the left lower quadrant. No acute abnormality involving the diverting colostomy identified. No pneumoperitoneum. 4. The gallbladder is surgically absent, new from the previous examination. There is minimal residual edema in the mo hepatis. No loculated fluid collection or abscess. No biliary dilatation. Electronically signed by: Prince Lee MD 08/10/23 21:[address] 08/10/23 20:01 Exam(s): CT EXTREMITY LEFT LOWER With Contrast IV Amt: 77 ml optiray 320 EXAM: CT Left Lower Extremity With Intravenous Contrast CLINICAL HISTORY: Inguinal abscess. TECHNIQUE: Axial computed tomography images of the left lower extremity with intravenous contrast. CTDI is 15.43 mGy and DLP is 1161.81 mGy-cm. Automated exposure control was utilized for the study. A dose lowering technique was utilized adhering to the principles of ALARA. CONTRAST: Patient received 77 ml optiray 320 of IV contrast COMPARISON: No relevant prior studies available. FINDINGS: Bones/joints: A left AKA is noted. Degenerative changes of the hip. The amputation is noted at the mid diaphysis of the femur. No acute fracture. No dislocation. Soft tissues: There is no evidence for a loculated fluid collection, subcutaneous emphysema or significant fat stranding at the left inguinal region. Soft tissues overlie the femoral stump. The muscle bundles are somewhat atrophic, as expected. No intramuscular hematoma or abnormality. Vasculature: There are postsurgical changes noted at the left groin with evidence of a previous bypass and long segment stents in the left superficial femoral artery. There is extensive arterial calcification of the regional arterial system. Tubes, lines and devices: For findings regarding the left perineal/perirectal drain, please see the CT report of the abdomen and pelvis performed concurrently. IMPRESSION: Postsurgical changes noted at the left inguinal region, as detailed above. There is no evidence for a loculated fluid collection, subcutaneous emphysema or significant fat stranding at the left inguinal region. Electronically signed by: Prince Lee MD 08/10/23 21:14 PM PG Care Time/CCT Total # of Minutes Spent Total Time Spent with Patient: Total time spent is greater than 50% in coordination of care (as documented) at patient's floor/unit and/or counseling patient: Coding Level of Care Code 77493 SUB INP/OBS CARE 2/35MIN Diagnoses Wound of left groin S31.109A Chronic ulcer of sacral region L98.429 Anemia D64.9 Peripheral arterial disease I73.9 Chronic kidney disease, stage III (moderate) N18.30 Aortic stenosis I35.0 Diabetic peripheral neuropathy associated with type 1 diabetes mellitus E10.42 Hypokalemia E87.6
[2023-08-11] MEDS ORDERED: POTASSIUM CHLORIDE CRTAB 20 MEQ TABCR PO STA (15:01)
[2023-08-11] MEDS: PIPERACILLIN/TAZOBACTAM 4.5 GM in DEXTROSE 5% MINI-B 100 ML IV SCH ×2 (15:21→22:43)
[2023-08-11] MEDS: traMADol HCL 50 MG TABLET PO PRN (17:56)
[2023-08-11] MEDS: FLUCONAZOLE 200 MG/100 ML BAG IV SCH ×2 (18:14→19:19)
[2023-08-11] MEDS: ATORVASTATIN 40 MG TAB PO SCH (21:01)
[2023-08-11] MEDS: traZODone HCL 100 MG TAB PO SCH (21:02)
[2023-08-12] MEDS: traMADol HCL 50 MG TABLET PO PRN (00:13)
[2023-08-12] MEDS: LEVOTHYROXINE SODIUM 175 MCG TABLET PO SCH (06:07)
[2023-08-12] MEDS: PIPERACILLIN/TAZOBACTAM 4.5 GM in DEXTROSE 5% MINI-B 100 ML IV SCH ×3 (06:07→23:12)
--- NOTE | 2023-08-12 07:38 | Surgery Progress Note ---
Date of Service August 12, 2023 Assessment & Plan (1) Fungal dermatitis: Plan: Improving (2) Wound of left groin: Plan: Duarte is easily appreciated in the left groin wound there is moderate amount of purulent drainage but nonbloody hemoglobin stable Plan Continue with to follow-up with colorectal surgery at [facility] Admission and Anticipated Discharge Date Admission Date: August 10, 2023 Subjective No new issues since last evaluation by the surgical service Physical Exam Physical Exam: Alert coherent without any acute issues The Duarte in the left perirectal abscess site intact (nurses report that has been easily appreciated on a regular basis) Results & Data Vital Signs (Past 12 Hours) Vital Signs Temp Pulse Pulse Resp BP Pulse Ox Pulse Ox 08/12/23 07:21 08/12/23 07:14 36.7 C 70 16 119/68 93 08/12/23 03:25 36.6 C 71 18 124/65 95 08/12/23 01:44 94 08/11/23 23:41 37.0 C 99 H 16 120/75 97 O2 Del Method O2 Del Method 08/12/23 07:21 Room Air 08/12/23 07:14 Room Air 08/12/23 03:25 Room Air 08/12/23 01:44 Room Air 08/11/23 23:41 Room Air
[2023-08-12] MEDS: ASPIRIN 81 MG ECTAB PO SCH (08:07)
[2023-08-12] MEDS: CHLORTHALIDONE 25 MG TAB PO SCH (08:08)
[2023-08-12] MEDS: TAMSULOSIN HCL 0.4 MG CAP PO SCH (08:08)
[2023-08-12] MEDS: FOLIC ACID 1 MG TAB PO SCH (08:08)
[2023-08-12] MEDS: METOPROLOL TARTRATE 25 MG TAB PO SCH ×2 (08:08→20:30)
[2023-08-12] MEDS: EZETIMIBE 10 MG TAB PO SCH (08:08)
[2023-08-12] MEDS: POTASSIUM CHLORIDE CRTAB 20 MEQ TABCR PO SCH ×2 (08:08→20:30)
[2023-08-12] MEDS: CALCITRIOL 0.25 MCG CAPSULE PO SCH (08:08)
[2023-08-12] MEDS: PANTOprazole 40 MG TAB PO SCH (08:08)
[2023-08-12] MEDS: BUTT PASTE (ZINC OXIDE 16%) 171 APPLN/57 GM JAR EXT SCH ×3 (08:09→20:30)
[2023-08-12] MEDS: FERROUS SULFATE 325 MG TAB PO SCH ×2 (08:09→20:30)
[2023-08-12] MEDS: MENTHOL-ZINC OXIDE 360 APPLN/120 GM TUBE EXT SCH ×3 (08:10→20:30)
[2023-08-12] MEDS: MUPIROCIN 2% OINT 22 GM TUBE TOP SCH ×2 (08:10→20:30)
[2023-08-12] MEDS: INSULIN, Rapid-Acting PUMP SC SCH ×4 (08:14→20:30)
[2023-08-12 09:33] LABS: Hematocrit (blood only) 36.3 % (42.0-52.0); Hemoglobin 11.5 g/dl (14.0-18.0); Mean Corpuscular Hemoglobin 26.7 pg (25.0-34.0); Mean Corpuscular Hgb Conc 31.7 g/dL (32.0-36.0); Mean Corpuscular Volume 84.4 fL (80.0-100.0); Mean Platelet Volume 9.5 fL (9.4-12.4); Platelet Count 344 K/uL (130-400); RDW Coefficient of Variation 14.8 % (11.5-14.5); RDW Standard Deviation 45.6 fL (36.4-46.3)
[2023-08-12 09:40] LABS: BUN Creatinine Ratio 10.1 (10-20); Calcium 8.6 mg/dl (8.6-10.3); Est GFR (African American) 108.5 ml/min; Est GFR (Non-African American) 93.6 ml/min; Potassium 3.7 mmol/L (3.5-5.1)
--- NOTE | 2023-08-12 12:41 | Hospitalist Progress Note ---
Date of Service August 12, 2023 Assessment & Plan (1) Wound of left groin: Plan: Surgery on board. No intervention recommended. Nursing providing wound care Wound culture growing gram-negative rods. Awaiting further identification and sensitivities Patient is on IV Zosyn and IV fluconazole (could be an yeast infection) Plavix on hold due to bleeding Patient has a history of a perirectal abscess and had a [place] drain placed in January 2023 at [facility]. he also had a diverting colostomy placed in March 2023. The plan was to keep the drain in place long-term. He later developed a wound in his groin that started draining. 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 (2) Chronic ulcer of sacral region: Plan: chronic Wound care daily (3) Anemia: Plan: continue Folic acid and ferrous sulfate CBC am (4) Peripheral arterial disease: Plan: Chronic. s/p bilateral lower extremities amputation continue aspirin Hold clopidogrel due to bleeding (5) Chronic kidney disease, stage III (moderate): Plan: Cr 0.85 on baseline Avoid nephrotoxic medications (6) Aortic stenosis: Plan: s/p bioprosthetic valve in 2015 continue home medication (7) Diabetic peripheral neuropathy associated with type 1 diabetes mellitus: Plan: patient uses Insulin pump at home will allow the patient to use his own insulin pump (8) Hypokalemia: Plan: replaced. Potassium 3.7 today Continue home dose 20 meq BID Plan Code: full code DVT prophylaxis: hold chemical DVT prophylaxis due to recent bleeding diet: diabetic diet consult: Surgery Admission and Anticipated Discharge Date Admission Date: August 10, 2023 Subjective Patient feels well overall. Nursing providing wound care. Denies significant pain. Review of Systems Review of Systems: All systems reviewed & are unremarkable except as noted in Subjective Physical Exam Physical Exam: General: Awake, conversant Heart: S1, S2/regular rate and rhythm, no murmur rubs or gallops Lungs: Clear to auscultation bilaterally. Normal effort Abdomen: Soft/nontender/nondistended. No hepatosplenomegaly. Colostomy bag in place Extremities: right below-knee amputation, left above-knee amputation. Dressing on left inguinal area Behavior: Appropriate, cooperative Results & Data Results & Data Vital Signs (Past 12 Hours) Vital Signs Temp Pulse Pulse Pulse Resp BP Pulse Ox 08/12/23 10:44 36.9 C 71 18 112/74 95 08/12/23 07:48 67 08/12/23 07:21 08/12/23 07:14 36.7 C 70 16 119/68 93 08/12/23 03:25 36.6 C 71 18 124/65 95 08/12/23 01:44 Pulse Ox O2 Del Method O2 Del Method 08/12/23 10:44 Room Air 08/12/23 07:48 08/12/23 07:21 Room Air 08/12/23 07:14 Room Air 08/12/23 03:25 Room Air 08/12/23 01:44 94 Room Air Laboratory Results Abnormal lab results 08/11/23 08/12/23 08/12/23 Range/Units 16:01 07:26 09:06 RBC 4.30 L (4.70-6.10) M/uL Hgb 11.5 L (14.0-18.0) g/dl Hct 36.3 L (42.0-52.0) % MCHC 31.7 L (32.0-36.0) g/dL RDW Coeff of Chan 14.8 H (11.5-14.5) % Sodium 133 L (136-145) mmol/L Chloride 95 L (98-107) mmol/L Glucose 217 H (70-99(Fasting)) mg/dl POC Glucose 193 H 195 H (70-99) mg/dl PG Care Time/CCT Total # of Minutes Spent Total Time Spent with Patient: Total time spent is greater than 50% in coordination of care (as documented) at patient's floor/unit and/or counseling patient: Coding Level of Care Code 94538 SUB INP/OBS CARE 2/35MIN Diagnoses Wound of left groin S31.109A Chronic ulcer of sacral region L98.429 Anemia D64.9 Peripheral arterial disease I73.9 Chronic kidney disease, stage III (moderate) N18.30 Aortic stenosis I35.0 Diabetic peripheral neuropathy associated with type 1 diabetes mellitus E10.42 Hypokalemia E87.6
--- NOTE | 2023-08-12 12:43 | Billing Data ---
Date of Service August 10, 2023 Coding Level of Care Code 47555 INT INP/OBS CARE
[2023-08-12] MEDS: FLUCONAZOLE 200 MG/100 ML BAG IV SCH (17:17)
[2023-08-12] MEDS: traZODone HCL 100 MG TAB PO SCH (20:30)
[2023-08-12] MEDS: ATORVASTATIN 40 MG TAB PO SCH (20:30)
[2023-08-13] MEDS: LEVOTHYROXINE SODIUM 175 MCG TABLET PO SCH (05:58)
[2023-08-13] MEDS: PIPERACILLIN/TAZOBACTAM 4.5 GM in DEXTROSE 5% MINI-B 100 ML IV SCH (05:58)
[2023-08-13 07:55] LABS: Hematocrit (blood only) 36.7 % (42.0-52.0); Mean Corpuscular Hemoglobin 27.1 pg (25.0-34.0); Mean Corpuscular Hgb Conc 32.7 g/dL (32.0-36.0); Mean Platelet Volume 9.7 fL (9.4-12.4); Platelet Count 378 K/uL (130-400); RDW Coefficient of Variation 14.6 % (11.5-14.5); RDW Standard Deviation 44.6 fL (36.4-46.3); Red Blood Count 4.42 M/uL (4.70-6.10); White Blood Count 12.21 K/ul (4.8-10.8)
[2023-08-13] MEDS: EZETIMIBE 10 MG TAB PO SCH (08:02)
[2023-08-13] MEDS: FOLIC ACID 1 MG TAB PO SCH (08:02)
[2023-08-13] MEDS: CHLORTHALIDONE 25 MG TAB PO SCH (08:03)
[2023-08-13] MEDS: FERROUS SULFATE 325 MG TAB PO SCH ×2 (08:03→20:10)
[2023-08-13] MEDS: ASPIRIN 81 MG ECTAB PO SCH (08:03)
[2023-08-13] MEDS: TAMSULOSIN HCL 0.4 MG CAP PO SCH (08:03)
[2023-08-13] MEDS: METOPROLOL TARTRATE 25 MG TAB PO SCH ×2 (08:03→20:09)
[2023-08-13] MEDS: PANTOprazole 40 MG TAB PO SCH (08:03)
[2023-08-13] MEDS: BUTT PASTE (ZINC OXIDE 16%) 171 APPLN/57 GM JAR EXT SCH ×3 (08:04→20:12)
[2023-08-13] MEDS: MUPIROCIN 2% OINT 22 GM TUBE TOP SCH ×2 (08:04→20:12)
[2023-08-13] MEDS: MENTHOL-ZINC OXIDE 360 APPLN/120 GM TUBE EXT SCH ×3 (08:04→20:12)
[2023-08-13] MEDS: CALCITRIOL 0.25 MCG CAPSULE PO SCH (08:04)
[2023-08-13] MEDS: POTASSIUM CHLORIDE CRTAB 20 MEQ TABCR PO SCH ×2 (08:04→20:08)
[2023-08-13 08:19] LABS: BUN Creatinine Ratio 13.8 (10-20); Calcium 8.7 mg/dl (8.6-10.3); Creatinine Clr Calc Pharmacy 108.2 ml/min; Est GFR (African American) 117.5 ml/min; Est GFR (Non-African American) 101.4 ml/min; Potassium 3.5 mmol/L (3.5-5.1)
[2023-08-13] MEDS: INSULIN, Rapid-Acting PUMP SC SCH ×4 (08:34→21:01)
[2023-08-13] MEDS: traMADol HCL 50 MG TABLET PO PRN (12:48)
--- NOTE | 2023-08-13 12:56 | Hospitalist Progress Note ---
Date of Service August 13, 2023 Assessment & Plan (1) Wound of left groin: Plan: Surgery on board. No intervention recommended. Nursing providing wound care Wound culture growing E. coli that is pansensitive. Patient is on IV Zosyn and IV fluconazole (could be an yeast infection) Switch IV Zosyn to IV ceftriaxone Plavix on hold due to bleeding Patient has a history of a perirectal abscess and had a [place] drain placed in January 2023 at [facility]. he also had a diverting colostomy placed in March 2023. The plan was to keep the drain in place long-term. He later developed a wound in his groin that started draining. 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 (2) Chronic ulcer of sacral region: Plan: chronic Wound care daily (3) Anemia: Plan: continue Folic acid and ferrous sulfate CBC am (4) Peripheral arterial disease: Plan: Chronic. s/p bilateral lower extremities amputation continue aspirin Hold clopidogrel due to bleeding (5) Chronic kidney disease, stage III (moderate): Plan: Cr 0.85 on baseline Avoid nephrotoxic medications (6) Aortic stenosis: Plan: s/p bioprosthetic valve in 2016 continue home medication (7) Diabetic peripheral neuropathy associated with type 1 diabetes mellitus: Plan: patient uses Insulin pump at home will allow the patient to use his own insulin pump (8) Hypokalemia: Plan: replaced. Potassium 3.7 today Continue home dose 20 meq BID Plan Code: full code DVT prophylaxis: hold chemical DVT prophylaxis due to recent bleeding diet: diabetic diet consult: Surgery Admission and Anticipated Discharge Date Admission Date: August 10, 2023 Subjective patient says that he is feeling better overall. The pain is getting better. Review of Systems Review of Systems: All systems reviewed & are unremarkable except as noted in Subjective Physical Exam Physical Exam: General: Awake, conversant Heart: S1, S2/regular rate and rhythm, no murmur rubs or gallops Lungs: Clear to auscultation bilaterally. Normal effort Abdomen: Soft/nontender/nondistended. No hepatosplenomegaly. Colostomy bag in place Extremities: right below-knee amputation, left above-knee amputation. Dressing on left inguinal area Behavior: Appropriate, cooperative Results & Data Results & Data Vital Signs (Past 12 Hours) Vital Signs Temp Pulse Pulse Resp BP Pulse Ox O2 Del Method 08/13/23 11:16 37.1 C 63 18 124/76 96 Room Air 08/13/23 07:53 68 08/13/23 07:07 37.0 C 72 18 122/62 95 Room Air 08/13/23 03:03 37.2 C 68 18 132/60 Room Air Laboratory Results Abnormal lab results 08/13/23 08/13/23 Range/Units 07:20 07:28 WBC 12.21 H (4.8-10.8) K/ul RBC 4.42 L (4.70-6.10) M/uL Hgb 12.0 L (14.0-18.0) g/dl Hct 36.7 L (42.0-52.0) % RDW Coeff of Chan 14.6 H (11.5-14.5) % Sodium 135 L (136-145) mmol/L Chloride 97 L (98-107) mmol/L Glucose 241 H (70-99(Fasting)) mg/dl POC Glucose 234 H (70-99) mg/dl PG Care Time/CCT Total # of Minutes Spent Total Time Spent with Patient: Total time spent is greater than 50% in coordination of care (as documented) at patient's floor/unit and/or counseling patient: Coding Level of Care Code 96583 SUB INP/OBS CARE 2/35MIN Diagnoses Wound of left groin S31.109A Chronic ulcer of sacral region L98.429 Anemia D64.9 Peripheral arterial disease I73.9 Chronic kidney disease, stage III (moderate) N18.30 Aortic stenosis I35.0 Diabetic peripheral neuropathy associated with type 1 diabetes mellitus E10.42 Hypokalemia E87.6
--- NOTE | 2023-08-13 13:08 | Surgery Progress Note ---
Date of Service August 13, 2023 Assessment & Plan (1) Chronic ulcer of sacral region: Plan: Cultures from the purulent drainage in the sacral ulceration noted and sensitivities have been reported and appropriate antibiotics have been instituted by the medical service The patient should follow-up with colorectal service at [facility] Would strongly recommend that infectious disease be involved in antibiotic management Admission and Anticipated Discharge Date Admission Date: August 10, 2023 Subjective Nurses report that the Duarte drain is easily appreciated intact and moderate amount of purulent drainage Results & Data Vital Signs (Past 12 Hours) Vital Signs Temp Pulse Pulse Resp BP Pulse Ox O2 Del Method 08/13/23 11:16 37.1 C 63 18 124/76 96 Room Air 08/13/23 07:53 68 08/13/23 07:07 37.0 C 72 18 122/62 95 Room Air 08/13/23 03:03 37.2 C 68 18 132/60 Room Air
[2023-08-13] MEDS: cefTRIAXone SODIUM 2,000 MG in DEXTROSE 5 % MINI-B 50 ML IV SCH (14:01)
[2023-08-13] MEDS: FLUCONAZOLE 200 MG/100 ML BAG IV SCH (18:13)
[2023-08-13] MEDS: traZODone HCL 100 MG TAB PO SCH (20:09)
[2023-08-13] MEDS: ATORVASTATIN 40 MG TAB PO SCH (20:10)
[2023-08-14] MEDS: LEVOTHYROXINE SODIUM 175 MCG TABLET PO SCH (06:06)
[2023-08-14 08:00] LABS: Hematocrit (blood only) 35.2 % (42.0-52.0); Hemoglobin 11.6 g/dl (14.0-18.0); Mean Corpuscular Hemoglobin 27.2 pg (25.0-34.0); Mean Corpuscular Volume 82.6 fL (80.0-100.0); Mean Platelet Volume 9.8 fL (9.4-12.4); Platelet Count 385 K/uL (130-400); RDW Coefficient of Variation 14.6 % (11.5-14.5); RDW Standard Deviation 44.2 fL (36.4-46.3); Red Blood Count 4.26 M/uL (4.70-6.10); White Blood Count 11.29 K/ul (4.8-10.8)
[2023-08-14] MEDS: FOLIC ACID 1 MG TAB PO SCH (08:17)
[2023-08-14] MEDS: ASPIRIN 81 MG ECTAB PO SCH (08:17)
[2023-08-14] MEDS: CALCITRIOL 0.25 MCG CAPSULE PO SCH (08:17)
[2023-08-14] MEDS: EZETIMIBE 10 MG TAB PO SCH (08:17)
[2023-08-14] MEDS: TAMSULOSIN HCL 0.4 MG CAP PO SCH (08:17)
[2023-08-14] MEDS: PANTOprazole 40 MG TAB PO SCH (08:17)
[2023-08-14] MEDS: CHLORTHALIDONE 25 MG TAB PO SCH (08:18)
[2023-08-14] MEDS: FERROUS SULFATE 325 MG TAB PO SCH ×2 (08:18→20:43)
[2023-08-14] MEDS: POTASSIUM CHLORIDE CRTAB 20 MEQ TABCR PO SCH ×2 (08:18→20:43)
[2023-08-14] MEDS: MENTHOL-ZINC OXIDE 360 APPLN/120 GM TUBE EXT SCH ×3 (08:18→20:46)
[2023-08-14] MEDS: METOPROLOL TARTRATE 25 MG TAB PO SCH ×2 (08:18→20:45)
[2023-08-14 08:19] LABS: BUN Creatinine Ratio 13.7 (10-20); Calcium 8.9 mg/dl (8.6-10.3); Creatinine Clr Calc Pharmacy 96.3 ml/min; Est GFR (Non-African American) 96.7 ml/min; Potassium 3.9 mmol/L (3.5-5.1)
[2023-08-14] MEDS: MUPIROCIN 2% OINT 22 GM TUBE TOP SCH ×2 (08:19→20:47)
[2023-08-14] MEDS: BUTT PASTE (ZINC OXIDE 16%) 171 APPLN/57 GM JAR EXT SCH ×3 (08:19→20:46)
[2023-08-14] MEDS: traMADol HCL 50 MG TABLET PO PRN ×2 (08:25→15:31)
[2023-08-14] MEDS: INSULIN, Rapid-Acting PUMP SC SCH ×4 (08:29→21:33)
--- NOTE | 2023-08-14 08:42 | Surgery Progress Note ---
Date of Service August 14, 2023 Assessment & Plan (1) Cellulitis: Plan: Dramatic improvement. There is nothing that needs surgically drained or debrided. I would recommend at some point getting an infectious disease consult as he may need long-term prophylactic treatment as his likely fistula will probably never resolve. I recommend that he follow-up with his colorectal surgeon after discharge. Will sign off call if any questions or concerns. (2) Fungal dermatitis: Admission and Anticipated Discharge Date Admission Date: August 10, 2023 Subjective Patient seen. He does state that his inguinal regions both are feeling dramatically better than last week Physical Exam Constitutional: WD/WN, vitals as above no acute distress and not ill appearing Eyes: PERRL, conjunctivae normal, anicteric sclerae EOM intact bilaterally ENMT: external ear and nose normal, oropharynx normal Ears: no hearing impairment Neck: trachea midline, no thyromegaly Respiratory: normal respiratory effort; no respiratory distress and does not use accessory muscles Cardiovascular: Rate/Rhythm: regular rate and regular rhythm Gastrointestinal (Abdomen): normal bowel sounds, soft, nontender, no hepatosplenomegaly Skin: The inguinal creases are dramatically improved from Monday. The erythema is almost gone. Continues to have a small amount of purulent drainage out from the [place] opening. Psychiatric: Orientation: alert, oriented x 3 and cooperative Results & Data Vital Signs (Past 12 Hours) Vital Signs Temp Pulse Resp BP Pulse Ox Pulse Ox O2 Del Method 08/14/23 07:12 36.7 C 65 18 116/78 95 Room Air 08/14/23 02:32 36.6 C 65 15 131/83 97 Room Air 08/14/23 01:00 95 08/13/23 23:13 36.6 C 65 16 117/63 95 Room Air O2 Del Method 08/14/23 07:12 08/14/23 02:32 08/14/23 01:00 Room Air 08/13/23 23:13 PG Care Time/CCT Total # of Minutes Spent Total Time Spent with Patient: Total time spent is greater than 50% in coordination of care (as documented) at patient's floor/unit and/or counseling patient: Coding Level of Care Code 50840 SUB INP/OBS CARE 2/35MIN Diagnoses Cellulitis L03.90 Fungal dermatitis B36.9
[2023-08-14] MEDS ORDERED: DAPTOmycin 400 MG in SYRINGE 0 ML IV SCH (11:00)
[2023-08-14] MEDS: cefTRIAXone SODIUM 2,000 MG in DEXTROSE 5 % MINI-B 50 ML IV SCH (11:59)
[2023-08-14] MEDS ORDERED: metroNIDAZOLE 500 MG/100 ML BAG IV SCH (15:30)
--- NOTE | 2023-08-14 15:59 | Infectious Disease Consult ---
Date of Consultation August 14, 2023 Assessment & Plan (1) Cellulitis: (2) Wound of left groin: (3) Surgical wound, non healing: (4) Perirectal abscess: (5) Intertrigo: (6) MSSA (methicillin susceptible Staphylococcus aureus) infection: (7) Escherichia coli (E. coli) infection: (8) Bacteroides infection: Plan Ron Chowdhury is a 68-year-old man with history of chronic sacral ulcer, PAD, L AKA and R BKA, CKD, T2DM, aortic stenosis s/p bioprosthetic valve in 2016, CAD s/p single vessel coronary bypass (2015), perirectal abscess s/p Duarte drain 01/2023 and s/p diverting colostomy 03/09/2023 c/b chronic perineal fistula, recent admission for acute cholecystitis s/p cholecystectomy 07/17/23, who presents to [facility] on 08/10/23 due to bleeding from sacral wound site, and concern for L groin and perineal cellulitis/SSTI, with imaging negative for abscess, 08/11 wound cx +E. coli, MSSA, and Bacteroides thetaiotataomicron, and moderate anaerobic microbiota. ID is consulted for L groin/perirectal SSTI in the setting of chronic perineal fistula. Concern for bacterial infection of L groin, with clinical picture suggestive of SSTI. Imaging without underlying abscess. Femur CT showed postsurgical changes at L inguinal region, with no fluid, emphysema, or fat stranding. CT A/P showed L perirectal space surgical packing, with anterior gas but no fat stranding and no fluid collection; continued circumferential mucosal thickening of distal rectosigmoid colon. Wound cx from the grown grew E. coli, MSSA, and Bacteroides thetaiotataomicron, and moderate anaerobic microbiota. Can continue cefazolin and metronidazole and transition to cefadroxil+metronidazole to complete a 14- day course for SSTI. At this time, would recommend against long-term prophylactic abx given the potential risk of resistant bacteria and due to the chronicity of the patients underlying process. Would continue to optimize wound management, including close follow-up with wound care and management of any possible Candidiasis/intertrigo (consideration of topical antifungals such as nystatin). Per surgery, the patients perineal fistula is unlikely to heal/resolve on its own. It appears that the patients poor wound healing has been attributed in part to PAD (noting hx of both BKA and AKA) rather than an underlying condition such as IBD/UC. Would continue to follow closely with surgery. Continue to consider possible underlying etiologies (e.g., IBD, Behcets, pyoderma with underlying hematologic malignancy). Noting the patients propensity for wound development and non-healing wounds, would consider wound/skin bx (of ulcer edge) to evaluate for possible pyoderma, as well as screening/evaluation for malignancy (e.g., MGUS/other heme disorder) and autoimmune disease as appropriate. ID Problem List: 1.Chronic perineal fistula s/p Nebo drain and diverting colostomy 2.Groin SSTI, +E. coli and MSSA and Bacteroides 3.Possible Candidiasis/intertrigo 4.Nonhealing perineal fistula wound, L groin wound, recurrent scrotal ulcers. Concern for pyoderma and/or underlying process (malignancy, autoimmune) Recommendations: - Stop daptomycin, stop ceftriaxone - Start cefazolin 1g IV Q8H - Start metronidazole 500 mg PO BID - If improving and will be discharging, can transition to cefadroxil 500 mg PO Q12H and continue metronidazole 500 mg PO BID to complete a total 14-day course for SSTI (08/10/23-08/24/23) - Continue to optimize wound management, including close follow-up with wound care and management of any Candidiasis/intertrigo (consideration of topical antifungals such as nystatin, can stop IV fluconazole) - Continue to follow closely with general surgery - Continue to consider possible underlying etiologies. Consider wound biopsy (of ulcer edge) and evaluation for possible pyoderma, as well as screening/evalua tion for malignancy and autoimmune disease. Can send JACKI, ANCA, RF, hepatitis B sAg, hepatitis B total core Ab, hepatitis B surface Ab, HCV Ab, SPEP Plan discussed with hospitalist. Thank you for letting ID participate in the care of this patient. Patient will likely discharge tomorrow or in the coming few days. ID will sign off at this time. If questions, please contact the [facility][NOTE 3]onnect call center at [phone]. Natalya Chin MD, MHS Infectious Diseases [facility] ID Connect direct line: [phone] Consultation Information Consultation was provided via telemedicine using two-way real-time interactive telecommunication between the patient and the telemedicine provider. For the duration of the visit, the provider was performing the assessment from a different facility than the patient. This includesuse of bluetooth stethoscope forauscultationperformed by the telepresenter that the telemedicine provider can hear if described in the physical exam. Fiber Optics Engineer contact information: Please call [facility] Connect Call Center [phone]. (Phone Number For Physician Use Only) After establishing a telemedicine visit, patient was: Patient was verified with two unique identifiers, Patient/authorized rep acknowledged consent and understanding and Gave permission to continue telehealth session Time Spent with Patient: Initial => 75 min History of Present Illness Attending Physician: Noemí Garcia MD History of Present Illness Ron Chowdhury is a 68-year-old man with history of chronic sacral ulcer, PAD, L AKA and R BKA, CKD, T2DM, aortic stenosis s/p bioprosthetic valve in 2015, CAD s/p single vessel coronary bypass (2015), perirectal abscess s/p Nebo drain 01/2023 and s/p diverting colostomy 03/09/2023 c/b chronic perineal fistula, recent admission for acute cholecystitis s/p cholecystectomy 07/17/23, who presents to [facility] on 08/10/23 due to bleeding from sacral wound site, and concern for L groin and perineal cellulitis/SSTI, with imaging negative for abscess, 08/11 wound cx +E. coli, MSSA, and Bacteroides thetaiotataomicron, and moderate anaerobic microbiota. ID is consulted for L groin/perirectal SSTI in the setting of chronic perineal fistula. The patient states that all of his symptoms began 11/2022 and that he previously did not have a history of rectal abscess before this. Per turn review, the patient initially presented in November with symptoms of rectal pain, bleeding, and was found to have a perirectal abscess. On 11/25/22 he underwent I&D which grew E. coli, Bacteroides thetaiotaomicron, and Bacteroides uniformis. He was readmitted and returned to the OR on 12/01/22 for removal of packing that was in from the prior I&D, with purulent fluid noted. Cx not sent. He was treated with pip-tazo -> Bactrim and metronidazole to complete a 2-week total abx course. The patient had a Nebo drain placed 01/2023. He continued to have pain with BMs and siting. diverting colostomy placed in 03/09/2023. He later developed a draining wound in his L groin c/w chronic perineal fistula. Per notes, last colonoscopy 09/29/21 was unremarkable. Interim wound cx 02/20 grew MSSA. Per scanned records, the patient had a hospitalization 04/2023 for a small groin infection/small abdominal abscess involving his superolateral L scrotum as well. He was treated with doxycycline for a 10-day course ending 05/19/23. He was admitted 05/22-06/06/23 with concern for groin wound infection despite recent doxycycline. Per discharge summary, he was managed for scrotal cellulitis (pain, erythema) as well as chronic perirectal abscess which had been draining foul-smelling fluid from the wound.. He was treated with daptomycin and pip- tazo. 05/22/23 Abdominal LLQ wound cx: Providencia stuartii, Proteus mirabilis, Bacteroides thetaiotamomicron. Daptomycin was stopped and pip-tazo was continued to complete a 14-day course. Recently, the patients sacral wound had increased surrounding redness and soreness. The patient noted a gush of blood with standing, thus prompting ED presentation. No fevers, chills, chest pain, cough, nausea, vomiting, diarrhea. He has had intermittent sweats for quite a while. He reports that his last abx were during his admission at the beginning of July 2023 for acute cholecystitis, s/p cholecystecomy. He does not believe that he has has taken antibiotics since that time. In the ED, afebrile. WBC 12.6. Hgb 12.8. He was started on pip-tazo. Femur CT showed postsurgical changes at L inguinal region, with no fluid, emphysema, or fat stranding. CT A/P showed L perirectal space surgical packing, with anterior gas but no fat stranding and no fluid collection; continued circumferential mucosal thickening of distal rectosigmoid colon. Wound cx from the grown grew E. coli, MSSA, and Bacteroides thetaiotataomicron, and moderate anaerobic microbiota. At the time of evaluation, the patient reports that he is feeling somewhat be tter though continues to have significant soreness and skin breakdown around the drain. Allergies Allergy/AdvReac Type Severity Reaction Status Date / Time No Known Allergies Allergy Unknown Verified 08/10/23 13:10 Home Medications Medication Instructions Recorded Confirmed Type aspirin 81 mg tablet,delayed 81 mg PO QAM 05/04/21 08/10/23 History release (Mohit Low Dose Aspirin) atorvastatin 80 mg tablet (Lipitor) 80 mg PO HS #90 tabs 11/15/21 08/10/23 Rx levothyroxine 175 mcg tablet 175 mcg PO QAM #90 tabs 07/01/22 08/10/23 Rx (Synthroid) magnesium oxide 400 mg (241.3 mg 400 mg PO QAM #30 tabs 07/07/22 08/10/23 Rx magnesium) tablet acetaminophen 500 mg tablet 1,000 mg PO Q8 PRN Pain 07/18/22 08/10/23 History (Tylenol Extra Strength) nystatin 100,000 unit/gram topical 1 applic topical BID PRN Skin 07/18/22 08/10/23 History powder Irritation metoprolol tartrate 25 mg tablet 12.5 mg (1/2 x 25 mg) PO BID #90 08/08/22 08/10/23 Rx tabs calcitriol 0.25 mcg capsule 0.25 mcg PO QAM #30 caps 08/19/22 08/10/23 Rx (Rocaltrol) clopidogrel 75 mg tablet (Plavix) 75 mg PO QAM #30 tabs 08/19/22 08/10/23 Rx insulin aspart U-100 100 unit/mL 0 unit continuous subcutaneous 11/25/22 08/10/23 History subcutaneous solution (Novolog infusion DAILY U-100 Insulin aspart) menthol 0.44 %-zinc oxide 20.6 % 1 applic EXT TID 11/25/22 08/10/23 History topical ointment (Calmoseptine) zinc oxide 16 % topical ointment 1 applic EXT TID 11/25/22 08/10/23 History (Boudreauxs Butt Paste) pantoprazole 40 mg tablet,delayed 40 mg PO DAILY #90 tabs 12/12/22 08/10/23 Rx release (Protonix) Replacement Brakes for Manual #1 ea 05/12/23 08/10/23 Rx Wheelchair mupirocin 2 % topical ointment 1 applic topical Q12H 05/12/23 08/10/23 History trazodone 100 mg tablet 100 mg PO HS #30 tabs 05/17/23 08/10/23 Rx tamsulosin 0.4 mg capsule 0.4 mg PO DAILY #90 caps 05/18/23 08/10/23 Rx tramadol 50 mg tablet 50 - 100 mg PO Q6 PRN pain 05/22/23 08/10/23 History cyclobenzaprine 10 mg tablet 10 mg PO Q8H PRN Muscle Spasm #90 06/16/23 08/10/23 Rx tabs Mattress (Air or other) #1 ea 06/19/23 08/10/23 Rx Wheelchair (Manual) (Manual #1 ea 06/19/23 08/10/23 Rx Wheelchair) ferrous sulfate 325 mg (65 mg 325 mg PO BID #60 tabs 06/19/23 08/10/23 Rx iron) tablet,delayed release chlorthalidone 25 mg tablet 25 mg PO QAM #90 tabs 07/03/23 08/10/23 Rx ezetimibe 10 mg tablet 10 mg PO DAILY #30 tabs 07/10/23 08/10/23 Rx potassium chloride 20 mEq 20 meq PO BID 07/12/23 08/10/23 History tablet,extended release folic acid 1 mg tablet 1 mg PO QAM #90 tabs 07/24/23 08/10/23 Rx simethicone 125 mg capsule (Gas-X 125 mg PO DAILY PRN abdominal 07/24/23 08/10/23 Rx Extra Strength) distention #14 caps ondansetron 4 mg disintegrating 4 mg PO Q6H PRN nausea and 07/25/23 08/10/23 Rx tablet vomiting #30 tabs Patient History Medical History Cellulitis of perineum Cellulitis of scrotum BPH (benign prostatic hyperplasia) Anemia Above knee amputation of left lower extremity Surgical wound, non healing Stage III pressure ulcer 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) Hx MRSA infection 01/2022 (left heel) Type I diabetes mellitus, uncontrolled Candidal diaper rash History of colon polyps History of Clostridium difficile infection s/p treatment (2020) Below-knee amputation of right lower extremity Clostridium difficile colitis DVT prophylaxis Folate deficiency Constipation Anemia COPD (chronic obstructive pulmonary disease) GERD (gastroesophageal reflux disease) Dyslipidemia Hypertension Hypothyroidism Vitamin D deficiency Aortic stenosis s/p porcine valve replacement (2015) + CABG x1 Follows with [facility] cardio CAD (coronary artery disease) s/p CABG x 1 (2015) Surgical History Hx laparoscopic cholecystectomy (07/17/23) Robotic assisted Laparoscopic Cholecystectomy(Not Applicable) - Markus Dawson, DO, FACS Hx of cystoscopy w/stent placement; stent then removed S/P femoral-tibial bypass Below-knee amputation of right lower extremity H/O vascular surgery Right Femoral to Posterior tibial Prosthetic Bypass Graft(Right) History of skin graft Split Thickness Skin Graft of Left Lateral Ankle (11/18/20): LMA#5, atraumatic x1 at [facility] Hx of surgical procedure Left Leg Wound Debridement and Irrigation History of arterial bypass of lower extremity Left femoral to PT composite bypass graft (06/2020) History of carpal tunnel release R/L History of tooth extraction History of tonsillectomy History of myringotomy w/tubes bilat. S/P femoropopliteal bypass surgery Right fem-pop bypass graft (01/19/21): Grade 2 view, MAC 3.0, ETT 8.0 at [facility] History of cardiac cath x2, most recent 2016 > no stents (subsequent CABG with AVR in 2015); [facility] History of umbilical hernia repair S/P insertion of iliac artery stent B/L iliac stent placement (2014) H/O endarterectomy R common femoral (11/2018) History of open reduction and internal fixation (ORIF) procedure LLE () History of colonoscopy History of esophagogastroduodenoscopy (EGD) History of aortic valve replacement 2015 ([facility]) H/O cataract extraction R/L History of ankle surgery LEFT ANKLE +HARDWARE REMOVED History of coronary artery bypass graft CABG x1 + AVR (2015) 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 Left transmetatarsal amputation (11/23/21): LMA# 5.0 at [facility]. No issues noted per post-op anesthesia progress note. HX 1 SX TO REMOVE ALL TOES LEFT FOOT NOVEMBER 2021 Family History Brother Family history of diabetes mellitus Sister Family history of diabetes mellitus Mother Family history of diabetes mellitus Grandmother (Maternal) Family history of diabetes mellitus Uncle Family hx of colon cancer Colorectal cancer Father Family history of esophageal cancer Sister Family history of diabetes mellitus Other No family history of adverse response to anesthesia Denies family history of Ovarian cancer Prostate cancer Myocardial infarction Breast cancer Social History Smoking Status: Former smoker Tobacco Type: Cigarettes and Cigars Second Hand Exposure: Yes (as a child); Do You Dip or Chew Tobacco: No; Hx Alcohol Use: No Hx Substance Use: No Preferred Language: Spanish Communication Ability: Effective Visual Impairment: No Limitations Hearing Ability: Hard of Hearing Stamp Presser Required: No Beliefs That Will Affect Care: None marital status: Current Living Situation: Other Current Living Situation Comment: living at home with a friend helping with care current occupational status: disabled How many Children do You have: 2 How many Children do You have Comment: family assists with care, also is part of the waiver program so the pt's roommate is able to assist with care through this program Other Information That Helps Us Care for You: No Feels Safe at Home: Yes Safety Concerns: Feels Safe At This Time Childhood Exposure to Second-Hand Smoke: Yes Diet: diabetic Diet Comment: Carb Counts. ([id number], roughly), protein drinks caffeine: Yes (coffee, rarely ) during the past year weight has: remained stable Dental Care, Regularly: No Seatbelt Use: always Sunscreen Use: No Gender Identity: Male Assistive Devices: Prosthesis, Walker and Wheelchair Physical Exam Physical Exam: Exam obtained with aid of in-person telepresenter. General: Well-appearing, no acute distress HEENT: Conjunctivae non-injected, sclerae anicteric, MMM, OP clear. Resp: Respirations nonlabored. Abd: Soft, nontender, nondistended. Normal bowel sounds throughout. No masses or organomegaly. Back: No tenderness to palpation along spine Ext: Warm and well-perfused. s/p L AKA stump wound well-healed, R BKA wounds well-healed Skin: No rashes or lesions. Scrotal skin erosion with ~1.5 cm punched-out appearing round ulceration on L side where it opposes the patients thigh (pt reports this area opened up while in rehab). Duarte drain in place. Significant surrounding skin flaking and cracking. No significant surrounding erythema or induration. Neuro: Alert & interactive. Grossly non-focal. Psych: Pleasant, appropriate. Results & Data Vital Signs (Past 12 Hours) Vital Signs Temp Pulse Pulse Resp BP Pulse Ox O2 Del Method 08/14/23 15:15 67 08/14/23 15:15 36.6 C 74 20 137/82 97 Room Air 08/14/23 11:36 37.1 C 75 19 118/56 L 95 Room Air 08/14/23 08:45 61 08/14/23 07:12 36.7 C 65 18 116/78 95 Room Air Diagnostic Findings Diagnostics: 08/[address] FINDINGS: Bones/joints: A left AKA is noted. Degenerative changes of the hip. The amputation is noted at the mid diaphysis of the femur. No acute fracture. No dislocation. Soft tissues: There is no evidence for a loculated fluid collection, subcutaneous emphysema or significant fat stranding at the left inguinal region. Soft tissues overlie the femoral stump. The muscle bundles are somewhat atrophic, as expected. No intramuscular hematoma or abnormality. Vasculature: There are postsurgical changes noted at the left groin with evidence of a previous bypass and long segment stents in the left superficial femoral artery. There is extensive arterial calcification of the regional arterial system. Tubes, lines and devices: For findings regarding the left perineal/perirectal drain, please see the CT report of the abdomen and pelvis performed concurrently. Postsurgical changes noted at the left inguinal region, as detailed above. There is no evidence for a loculated fluid collection, subcutaneous emphysema or significant fat stranding at the left inguinal region. 08/10 CT A/P 1. The previously noted surgical packing in the left perirectal space in the left ischiorectal fossa remains. No appreciable fluid is identified with some gas noted anteriorly. No significant fat stranding of the ischiorectal fat. No identifiable hematoma. 2. There is persistent, although questionably less prominent circumferential mucosal thickening of the distal rectosigmoid colon. There is minimal improvement in the presacral stranding. No proximal bowel obstruction. No pneumatosis or pneumoperitoneum. 3. No bowel obstruction. Mucosal prominence of the entire colon with complete decompression appears similar to the previous examination, accounting for differences in contrast-enhancement technique. Given stability, this is presumed related to decompression. A diverting colostomy is again noted in the left lower quadrant. No acute abnormality involving the diverting colostomy identified. No pneumoperitoneum. 4. The gallbladder is surgically absent, new from the previous examination. There is minimal residual edema in the mo hepatis. No loculated fluid collection or abscess. No biliary dilatation. Micro Summary: 08/11 groin wound g/s many polys, many GPCs, many GNRs; cx +E. coli, MSSA, Bacter oides thetaiotamicron, moderate anaerobic microbiota. 08/10 BCx x2: NGTD Prior 07/12 UCx: Pseudomonas spp (S-pip/tazo/cefe/cetaz/cipro/levo), Proteus mirabilis (bruce-S) 05/22/23 UCx: PsA (S-pip/tazo/cefe/cetaz/cipro/levo) 05/22/23 Abdominal LLQ wound cx: Providencia stuartii, Proteus mirabilis, Bacteroides thetaiotamomicron 02/20/23 Wound g/s few GPRs few GPCs few GNRs; cx MSSA 01/25/23 UCx: Klebsiella pneumoniae 12/24/22 UCx: E. faecalis 11/25/22 I&D Wound rectal abscess: E. coli, Bacteroides thetaiotaomicron, Bacteroides uniformis Antibiotic Summary: ceftriaxone (08/13-present) daptomycin (08/14-present) pip-tazo (08/10-08/12) fluconazole (08/11-08/13)
[2023-08-14] MEDS: FLUCONAZOLE 200 MG/100 ML BAG IV SCH (17:39)
--- NOTE | 2023-08-14 18:18 | Hospitalist Progress Note ---
Date of Service August 14, 2023 Assessment & Plan (1) Wound of left groin: Plan: Surgery on board. No intervention recommended, needs outpt f/u with colorectal surgery, drainage and erythema improving Nursing providing wound care Wound culture growing E. coli that is pansensitive, MSSA, and bacteroides -consult ID--> change abx to IV cefazolin and dc IV diflucan, add po Flagyl for total 14 days through 08/24/23, start topical antifungal powder, consdier biopsy of wound edge to assess for pyoderma check workup for autoimmune and malignancy--> JACKI, ANCA, SPE, Hep B, RF. -plan to convert to po cefadroxil and flagyl on dc Plavix on hold due to bleeding which has stopped Patient has a history of a perirectal abscess and had a [place] drain placed in January 2023 at [facility]. he also had a diverting colostomy placed in March 2023 due to ongoing abscess and fistula. The plan was to keep the drain in place long-term. He later developed a wound in his groin that started draining. He is being managed for this chronic perineal fistula by [facility]. (2) Chronic ulcer of sacral region: Plan: chronic Wound care daily (3) Anemia: Plan: continue Folic acid and ferrous sulfate CBC am (4) Peripheral arterial disease: Plan: Chronic. s/p bilateral lower extremities amputation continue aspirin Hold clopidogrel due to bleeding (5) Chronic kidney disease, stage III (moderate): Plan: Cr 0.85 on baseline Avoid nephrotoxic medications (6) Aortic stenosis: Plan: s/p bioprosthetic valve in 2016 (7) Diabetic peripheral neuropathy associated with type 1 diabetes mellitus: Plan: patient uses Insulin pump at home will allow the patient to use his own insulin pump with hyperglycemia and adjustments made today with CDE (8) Hypokalemia: Plan: Continue home dose 20 meq BID K normal Plan Code: full code DVT prophylaxis: hold chemical DVT prophylaxis due to recent bleeding diet: diabetic diet Dispo-continued stay, posible dc to home in 1-2 days Admission and Anticipated Discharge Date Admission Date: August 10, 2023 Subjective Feeling better, some pain in bottom. No CP, SOB Physical Exam Constitutional: WD/WN, vitals as above Respiratory: normal respiratory effort, lungs clear to auscultation Cardiovascular: RRR, no murmur, no edema Gastrointestinal (Abdomen): normal bowel sounds, soft, nontender, no hepatosplenomegaly Musculoskeletal: Extremities: + extremities abnormal to inspection (bilat leg amputations) Results & Data Results & Data Vital Signs (Past 12 Hours) Vital Signs Temp Pulse Pulse Resp BP Pulse Ox O2 Del Method 08/14/23 15:15 67 08/14/23 15:15 36.6 C 74 20 137/82 97 Room Air 08/14/23 11:36 37.1 C 75 19 118/56 L 95 Room Air 08/14/23 08:45 61 08/14/23 07:12 36.7 C 65 18 116/78 95 Room Air Laboratory Results CBC, BMP reviewed Wound cxs reviewed blood cxs reviewed PG Care Time/CCT Total # of Minutes Spent Total Time Spent with Patient: Total time spent is greater than 50% in coordination of care (as documented) at patient's floor/unit and/or counseling patient: Coding Level of Care Code 09061 SUB INP/OBS CARE 3/50MIN Diagnoses Wound of left groin S31.109A Chronic ulcer of sacral region L98.429 Anemia D64.9 Peripheral arterial disease I73.9 Chronic kidney disease, stage III (moderate) N18.30 Aortic stenosis I35.0 Diabetic peripheral neuropathy associated with type 1 diabetes mellitus E10.42 Hypokalemia E87.6
[2023-08-14] MEDS: ceFAZolin 1000MG 1,000 MG/7.5 ML SYR IV SCH (18:33)
[2023-08-14] MEDS: metroNIDAZOLE 500 MG TAB PO SCH (20:42)
[2023-08-14] MEDS: traZODone HCL 100 MG TAB PO SCH (20:44)
[2023-08-14] MEDS: ATORVASTATIN 40 MG TAB PO SCH (20:44)
[2023-08-14] MEDS: MICONAZOLE NITRATE POWDER 85 GM EXT SCH (20:48)
[2023-08-15] MEDS: ceFAZolin 1000MG 1,000 MG/7.5 ML SYR IV SCH ×3 (02:10→17:58)
[2023-08-15] MEDS: LEVOTHYROXINE SODIUM 175 MCG TABLET PO SCH (05:58)
[2023-08-15] MEDS: INSULIN, Rapid-Acting PUMP SC SCH ×4 (07:11→20:23)
[2023-08-15 07:19] VITALS: RESP 18
[2023-08-15 07:45] LABS: Hematocrit (blood only) 37.5 % (42.0-52.0); Hemoglobin 12.1 g/dl (14.0-18.0); Mean Corpuscular Hemoglobin 27.1 pg (25.0-34.0); Mean Corpuscular Hgb Conc 32.3 g/dL (32.0-36.0); Mean Corpuscular Volume 84.1 fL (80.0-100.0); Mean Platelet Volume 9.8 fL (9.4-12.4); Platelet Count 401 K/uL (130-400); RDW Coefficient of Variation 14.8 % (11.5-14.5); RDW Standard Deviation 45.4 fL (36.4-46.3); Red Blood Count 4.46 M/uL (4.70-6.10); White Blood Count 9.36 K/ul (4.8-10.8)
[2023-08-15] MEDS: PROMETHAZINE HCL 6.25 MG in SODIUM CHLORIDE 0.9% 50 ML IV PRN ×2 (07:57)
[2023-08-15] MEDS: CHLORTHALIDONE 25 MG TAB PO SCH (08:00)
[2023-08-15] MEDS: metroNIDAZOLE 500 MG TAB PO SCH ×2 (08:00→20:17)
[2023-08-15] MEDS: EZETIMIBE 10 MG TAB PO SCH (08:00)
[2023-08-15] MEDS: PANTOprazole 40 MG TAB PO SCH (08:00)
[2023-08-15] MEDS: POTASSIUM CHLORIDE CRTAB 20 MEQ TABCR PO SCH ×2 (08:00→20:17)
[2023-08-15] MEDS: ASPIRIN 81 MG ECTAB PO SCH (08:00)
[2023-08-15] MEDS: FERROUS SULFATE 325 MG TAB PO SCH ×2 (08:00→20:19)
[2023-08-15] MEDS: METOPROLOL TARTRATE 25 MG TAB PO SCH ×2 (08:00→20:18)
[2023-08-15] MEDS: TAMSULOSIN HCL 0.4 MG CAP PO SCH (08:00)
[2023-08-15] MEDS: CALCITRIOL 0.25 MCG CAPSULE PO SCH (08:00)
[2023-08-15] MEDS: FOLIC ACID 1 MG TAB PO SCH (08:01)
[2023-08-15] MEDS: BUTT PASTE (ZINC OXIDE 16%) 171 APPLN/57 GM JAR EXT SCH ×3 (08:02→20:20)
[2023-08-15] MEDS: MENTHOL-ZINC OXIDE 360 APPLN/120 GM TUBE EXT SCH ×3 (08:02→20:21)
[2023-08-15] MEDS: MUPIROCIN 2% OINT 22 GM TUBE TOP SCH ×2 (08:02→20:21)
[2023-08-15 08:05] LABS: BUN Creatinine Ratio 15.4 (10-20); Calcium 9.1 mg/dl (8.6-10.3); Creatinine Clr Calc Pharmacy 90.1 ml/min; Est GFR (Non-African American) 94.1 ml/min
[2023-08-15] MEDS: MICONAZOLE NITRATE POWDER 85 GM EXT SCH ×2 (08:09→20:21)
[2023-08-15] MEDS: traMADol HCL 50 MG TABLET PO PRN (12:06)
--- NOTE | 2023-08-15 17:58 | Hospitalist Progress Note ---
Date of Service August 15, 2023 Assessment & Plan (1) Wound of left groin: Plan: Surgery on board. No intervention recommended, needs outpt f/u with colorectal surgery, drainage and erythema improving Nursing providing wound care Wound culture growing E. coli that is pansensitive, MSSA, and bacteroides -consult ID--> changed abx to IV cefazolin and dc IV diflucan, add po Flagyl for total 14 days through 08/24/23, start topical antifungal powder, consider biopsy of wound edge to assess for pyoderma check workup for autoimmune and malignancy--> JACKI, ANCA, SPE, Hep B, RF. -plan to convert to po cefadroxil and flagyl on dc Plavix on hold due to bleeding which has stopped Patient has a history of a perirectal abscess and had a Duarte drain placed in January 2023 at [facility]. he also had a diverting colostomy placed in March 2023 due to ongoing abscess and fistula. The plan was to keep the drain in place long-term. He later developed a wound in his groin that started draining. 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 (2) Chronic ulcer of sacral region: Plan: chronic Wound care daily (3) Anemia: Plan: mild, stable hgb at 12 continue Folic acid and ferrous sulfate CBC am (4) Peripheral arterial disease: Plan: Chronic. s/p bilateral lower extremities amputation continue aspirin Hold clopidogrel due to bleeding (5) Chronic kidney disease, stage III (moderate): Plan: Cr 0.85 on baseline Avoid nephrotoxic medications (6) Aortic stenosis: Plan: s/p bioprosthetic valve in 2016 (7) Diabetic peripheral neuropathy associated with type 1 diabetes mellitus: Plan: patient uses Insulin pump at home will allow the patient to use his own insulin pump with hyperglycemia and adjustments made -now improved (8) Hypokalemia: Plan: Continue home dose 20 meq BID K normal Plan Code: full code DVT prophylaxis: hold chemical DVT prophylaxis due to recent bleeding diet: diabetic diet Dispo-continued stay, posible dc to home tomorrow Admission and Anticipated Discharge Date Admission Date: August 10, 2023 Subjective Pt feeling ok, had some bloody drainage from his groin today as per nursing. Eating and drinking, moving bowels Has pain in sacral region from wound Physical Exam Constitutional: WD/WN, vitals as above Respiratory: normal respiratory effort, lungs clear to auscultation Cardiovascular: RRR, no murmur, no edema Gastrointestinal (Abdomen): normal bowel sounds, soft, nontender, no hepatosplenomegaly Musculoskeletal: Extremities: + extremities abnormal to inspection (bilat leg amputations) Skin: left groin with open wound with Duarte drain in place with purulent drainage, left hemiscrotum with open draining wound,surrounding erythema buttocks with large macular patches of salmon colored skin with sloughing dry skin, small crack in skin over sacrum Results & Data Results & Data Vital Signs (Past 12 Hours) Vital Signs Temp Pulse Pulse Resp BP Pulse Ox O2 Del Method 08/15/23 16:13 67 08/15/23 15:43 36.7 C 65 18 131/75 96 Room Air 08/15/23 11:51 36.9 C 72 18 99/60 L 95 Room Air 08/15/23 08:04 69 136/85 08/15/23 08:00 Room Air 08/15/23 07:18 36.8 C 67 18 100/65 93 Room Air 08/15/23 07:02 76 O2 Flow Rate 08/15/23 16:13 08/15/23 15:43 08/15/23 11:51 08/15/23 08:04 08/15/23 08:00 0 08/15/23 07:18 08/15/23 07:02 Laboratory Results CBC, BMP reviewed WOUnd cx reviewed PG Care Time/CCT Total # of Minutes Spent Total Time Spent with Patient: Total time spent is greater than 50% in coordination of care (as documented) at patient's floor/unit and/or counseling patient: Coding Level of Care Code 99414 SUB INP/OBS CARE 2/35MIN Diagnoses Wound of left groin S31.109A Chronic ulcer of sacral region L98.429 Anemia D64.9 Peripheral arterial disease I73.9 Chronic kidney disease, stage III (moderate) N18.30 Aortic stenosis I35.0 Diabetic peripheral neuropathy associated with type 1 diabetes mellitus E10.42 Hypokalemia E87.6
[2023-08-15] MEDS: ATORVASTATIN 40 MG TAB PO SCH (20:16)
[2023-08-15] MEDS: traZODone HCL 100 MG TAB PO SCH (20:16)
[2023-08-16] MEDS: ceFAZolin 1000MG 1,000 MG/7.5 ML SYR IV SCH ×2 (01:14→08:27)
[2023-08-16] MEDS: LEVOTHYROXINE SODIUM 175 MCG TABLET PO SCH (05:42)
[2023-08-16] MEDS: FERROUS SULFATE 325 MG TAB PO SCH (08:26)
[2023-08-16] MEDS: FOLIC ACID 1 MG TAB PO SCH (08:26)
[2023-08-16] MEDS: EZETIMIBE 10 MG TAB PO SCH (08:26)
[2023-08-16] MEDS: METOPROLOL TARTRATE 25 MG TAB PO SCH (08:26)
[2023-08-16] MEDS: INSULIN, Rapid-Acting PUMP SC SCH ×3 (08:26→17:31)
[2023-08-16] MEDS: PANTOprazole 40 MG TAB PO SCH (08:26)
[2023-08-16] MEDS: POTASSIUM CHLORIDE CRTAB 20 MEQ TABCR PO SCH (08:26)
[2023-08-16] MEDS: metroNIDAZOLE 500 MG TAB PO SCH (08:26)
[2023-08-16] MEDS: TAMSULOSIN HCL 0.4 MG CAP PO SCH (08:27)
[2023-08-16] MEDS: MUPIROCIN 2% OINT 22 GM TUBE TOP SCH (08:27)
[2023-08-16] MEDS: ASPIRIN 81 MG ECTAB PO SCH (08:27)
[2023-08-16] MEDS: CALCITRIOL 0.25 MCG CAPSULE PO SCH (08:27)
[2023-08-16] MEDS: MENTHOL-ZINC OXIDE 360 APPLN/120 GM TUBE EXT SCH ×2 (08:27→13:29)
[2023-08-16] MEDS: CHLORTHALIDONE 25 MG TAB PO SCH (08:27)
[2023-08-16] MEDS: MICONAZOLE NITRATE POWDER 85 GM EXT SCH (08:28)
[2023-08-16] MEDS: BUTT PASTE (ZINC OXIDE 16%) 171 APPLN/57 GM JAR EXT SCH ×2 (08:28→13:30)
[2023-08-16 09:10] LABS: Hematocrit (blood only) 38.4 % (42.0-52.0); Hemoglobin 12.4 g/dl (14.0-18.0); Mean Corpuscular Hemoglobin 26.7 pg (25.0-34.0); Mean Corpuscular Hgb Conc 32.3 g/dL (32.0-36.0); Mean Corpuscular Volume 82.8 fL (80.0-100.0); Mean Platelet Volume 9.8 fL (9.4-12.4); Platelet Count 401 K/uL (130-400); RDW Coefficient of Variation 14.8 % (11.5-14.5); RDW Standard Deviation 44.4 fL (36.4-46.3); Red Blood Count 4.64 M/uL (4.70-6.10); White Blood Count 11.54 K/ul (4.8-10.8)
[2023-08-16 09:25] LABS: BUN Creatinine Ratio 16.9 (10-20); Calcium 9.4 mg/dl (8.6-10.3); Est GFR (African American) 113.3 ml/min; Est GFR (Non-African American) 97.8 ml/min; Potassium 3.7 mmol/L (3.5-5.1)
--- NOTE | 2023-08-16 09:49 | Surgery Progress Note ---
Date of Service August 16, 2023 Assessment & Plan (1) Wound of left groin: Plan: Patient was seen by infectious disease and antibiotics where tailored to their recommendations ID also recommended patient have a possible biopsy of groin skin to "to evaluate for possible pyoderma, as well as screening/evaluation for malignancy (e.g., MGUS/other heme disorder) and autoimmune disease as appropriate." (per ID note) Patient has a follow up with his colorectal surgeon in [place] and we will defer any surgical intervention or biopsy to them, this was discussed with the patient. He should continue his antibiotic regimen per ID General surgery will sign off at this time Please call with questions or concerns. Admission and Anticipated Discharge Date Admission Date: August 10, 2023 Subjective Patient resting in bed Denies sob, cp, fever chills tender to groin area Review of Systems Constitutional: no fever and no chills Cardiovascular: no chest pain Gastrointestinal: no abdominal pain, no nausea and no vomiting Integumentary: groin area tender Physical Exam Physical Exam: alert awake Constitutional: cooperative and comfortable; no acute distress Respiratory: normal respiratory effort and able to speak in complete sentences; no respiratory distress Cardiovascular: Rate/Rhythm: regular rate Gastrointestinal (Abdomen): Inspection/Auscultation: abdomen not distended Percussion/Palpation: abdomen soft ostomy functioning Results & Data Vital Signs (Past 12 Hours) Vital Signs Temp Pulse Resp BP Pulse Ox Pulse Ox O2 Del Method 08/16/23 07:11 98.6 F 69 18 102/64 93 Room Air 08/16/23 03:15 98.8 F 69 18 137/67 93 Room Air 08/16/23 01:00 93 08/15/23 23:25 98.6 F 65 18 112/66 95 Room Air O2 Del Method 08/16/23 07:11 08/16/23 03:15 08/16/23 01:00 Room Air 08/15/23 23:25 PG Care Time/CCT Total # of Minutes Spent Total Time Spent with Patient: Total time spent is greater than 50% in coordination of care (as documented) at patient's floor/unit and/or counseling patient: Coding Level of Care Code 55038 SUB INP/OBS CARE /25MIN Diagnoses Wound of left groin S31.109A
--- NOTE | 2023-08-16 13:44 | Discharge Summary ---
Discharge Summary Date of Service August 16, 2023 Notes For Next Care Provider Medication Changes From Visit Added cefadroxil 500mg po bid x 8 days and metronidazole 500mg po bid x 8 more days Changed Nystatin to miconazole powder bid Admission HPI Per Admitting Provider 68 y/o male with PMH of chronic sacral ulcer, PAD, above-knee amputation, below- knee amputation, CKD, Hypothyroidism, DM2. Aortic stenosis s/p bioprosthetic valve in 2016, CAD s/ single vessel coronary bypass (2016) and a colostomy bag here due to bleeding wound on sacral area. Patient states he had a [place] drain placed on January 2023 due to an abscess. He refers the plan was to drain for a long time because of poor healing. He refers the wound usually bleed but today he it was a gush of blood when he stand up. Patient refers the surgery was on [facility] by Dr. Vides. He additionally had a recent cholecystectomy done on 07/17, and had been followed by [facility] surgery outpatient. He denied any SOB, dizziness,lightheaded, syncope, presyncope, fever, chills, diarrhea, nausea, vomits, abdominal pain, chest pain, palpitations or any other symptoms. In the ER: has been hypotensive, non tachycardic, no fever. Hgb at 12.8. Mild leukocytosis. Hypokalemia noted, Potassium replaced now. ER. IV Zosyn ordered once. Femur CT: Postsurgical changes noted at the left inguinal region, as detailed above. There is no evidence for a loculated fluid collection, subcutaneous emphysema or significant fat stranding at the left inguinal region.CT abdomen: 1. No appreciable fluid is identified with some gas noted anteriorly. No significant fat stranding of the ischiorectal fat. No identifiable hematoma. 2.There is persistent, although questionably less prominent circumferential mucosal thickening of the distal rectosigmoid colon. Principal Dx & Hospital Course #1 = Principal Diagnosis (1) Wound of left groin: Surgery on board. No intervention recommended, needs outpt f/u with colorectal surgery, drainage and erythema improving Nursing providing wound care Wound culture growing E. coli that is pansensitive, MSSA, and bacteroides -consult ID--> changed abx to IV cefazolin and dcd IV diflucan, added po Flagyl for total 14 days through 08/24/23, started topical antifungal powder, consider biopsy of wound edge to assess for pyoderma check workup for autoimmune and malignancy--> JACKI, ANCA, SPE, Hep B, RF all drawn and pending. Biopsy deferred to his Colorectal surgeon -plan to convert to po cefadroxil and flagyl on dc through 08/24/23 Plavix on hold due to bleeding which has stopped--> resume Plavix -Patient has a history of a perirectal abscess and had a Duarte drain placed in January 2023 at [facility]. he also had a diverting colostomy placed in March 2023 due to ongoing abscess and fistula. The plan was to keep the drain in place long-term. He later developed a wound in his groin that started draining. 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 -continue local wound care -continue tramadol and tylenol prn pain (2) Chronic ulcer of sacral region: chronic Wound care daily (3) Anemia: mild, stable hgb at 12 continue Folic acid and ferrous sulfate (4) Peripheral arterial disease: Chronic. s/p bilateral lower extremities amputation continue aspirin Held clopidogrel due to bleeding but can resume continue statin (5) Chronic kidney disease, stage III (moderate): Cr at baseline Avoid nephrotoxic medications (6) Aortic stenosis: s/p bioprosthetic valve in 2016 (7) Diabetic peripheral neuropathy associated with type 1 diabetes mellitus: patient uses Insulin pump at home will allow the patient to use his own insulin pump with hyperglycemia and adjustments made -now improved (8) Hypokalemia: Continue home dose 20 meq BID K normal 2/2 chlorthalidone use for HTN-BPs controlled BPH-continue flomax GERD-continue PPI Hypothyroidism-continue LT4 Plan Code: full code DVT prophylaxis: hold chemical DVT prophylaxis due to recent bleeding Dispo-dc to home with home health Discharge Exam Constitutional WD/WN, vitals as above Respiratory normal respiratory effort, lungs clear to auscultation Cardiovascular RRR, no murmur, no edema Gastrointestinal (Abdomen) normal bowel sounds, soft, nontender, no hepatosplenomegaly Musculoskeletal Extremities: + extremities abnormal to inspection (bilat leg amputations) Updated Medication List Medication Instructions Recorded Confirmed Type aspirin 81 mg tablet,delayed 81 mg PO QAM 05/04/21 08/10/23 History release (Mohit Low Dose Aspirin) atorvastatin 80 mg tablet (Lipitor) 80 mg PO HS #90 tabs 11/15/21 08/10/23 Rx levothyroxine 175 mcg tablet 175 mcg PO QAM #90 tabs 07/01/22 08/10/23 Rx (Synthroid) magnesium oxide 400 mg (241.3 mg 400 mg PO QAM #30 tabs 07/07/22 08/10/23 Rx magnesium) tablet acetaminophen 500 mg tablet 1,000 mg PO Q8 PRN Pain 07/18/22 08/10/23 History (Tylenol Extra Strength) nystatin 100,000 unit/gram topical 1 applic topical BID PRN Skin 07/18/22 08/10/23 History powder Irritation metoprolol tartrate 25 mg tablet 12.5 mg (1/2 x 25 mg) PO BID #90 08/08/22 1 10/10/22 Rx tabs calcitriol 0.25 mcg capsule 0.25 mcg PO QAM #30 caps 08/19/22 08/10/23 Rx (Rocaltrol) clopidogrel 75 mg tablet (Plavix) 75 mg PO QAM #30 tabs 08/19/22 08/10/23 Rx insulin aspart U-100 100 unit/mL 0 unit continuous subcutaneous 11/25/22 08/10/23 History subcutaneous solution (Novolog infusion DAILY U-100 Insulin aspart) menthol 0.44 %-zinc oxide 20.6 % 1 applic EXT TID 11/25/22 08/10/23 History topical ointment (Calmoseptine) zinc oxide 16 % topical ointment 1 applic EXT TID 11/25/22 08/10/23 History (B[place]reauxs Butt Paste) pantoprazole 40 mg tablet,delayed 40 mg PO DAILY #90 tabs 12/12/22 08/10/23 Rx release (Protonix) Replacement Brakes for Manual #1 ea 05/12/23 08/10/23 Rx Wheelchair mupirocin 2 % topical ointment 1 applic topical Q12H 05/12/23 08/10/23 History trazodone 100 mg tablet 100 mg PO HS #30 tabs 05/17/23 08/10/23 Rx tamsulosin 0.4 mg capsule 0.4 mg PO DAILY #90 caps 05/18/23 08/10/23 Rx tramadol 50 mg tablet 50 - 100 mg PO Q6 PRN pain 05/22/23 08/10/23 History cyclobenzaprine 10 mg tablet 10 mg PO Q8H PRN Muscle Spasm #90 06/16/23 08/10/23 Rx tabs Mattress (Air or other) #1 ea 06/19/23 08/10/23 Rx Wheelchair (Manual) (Manual #1 ea 06/19/23 08/10/23 Rx Wheelchair) ferrous sulfate 325 mg (65 mg 325 mg PO BID #60 tabs 06/19/23 08/10/23 Rx iron) tablet,delayed release chlorthalidone 25 mg tablet 25 mg PO QAM #90 tabs 07/03/23 08/10/23 Rx ezetimibe 10 mg tablet 10 mg PO DAILY #30 tabs 07/10/23 08/10/23 Rx potassium chloride 20 mEq 20 meq PO BID 07/12/23 08/10/23 History tablet,extended release folic acid 1 mg tablet 1 mg PO QAM #90 tabs 07/24/23 08/10/23 Rx simethicone 125 mg capsule (Gas-X 125 mg PO DAILY PRN abdominal 07/24/23 08/10/23 Rx Extra Strength) distention #14 caps ondansetron 4 mg disintegrating 4 mg PO Q6H PRN nausea and 07/25/23 08/10/23 Rx tablet vomiting #30 tabs cefadroxil 500 mg capsule 500 mg PO BID #16 caps 08/16/23 Rx metronidazole 500 mg tablet 500 mg PO BID #16 tabs 08/16/23 Rx miconazole nitrate 2 % topical 1 applic EXT BID apply to rash on 08/16/23 Rx powder (Desenex) buttocks and groin #85 grams Hospital Stay Data Consultations 08/10/23 22:22 ED Decision to Admit Stat 08/11/23 01:44 Consult General Surgery Routine 08/14/23 09:20 Consult Infectious Diseases Routine Diagnostic Imagining Performed 08/10/23 18:32 CT abd pelvis IV con only Stat 08/10/23 20:01 CT femur LT w con Stat Pending Results Patient Have Any Pending Studies at Discharge: Yes (JACKI, RF,ANCA,SPEP,Hep B studies) Discharge Instructions Given to Patient (Per Discharging Provider) Please finish out the course of antibiotics for your infected wound for 8 more days. There are two different antibiotics-cefadroxil and metronidazole, both are to be taken twice a day. Continue your usual wound care and also you should be applying the antifungal powder to your bottom and groin twice a day. Please follow up with your PCP within 1-2 weeks. There are some pending lab studies that were drawn as recommended by the Infectious Disease specialist to look for autoimmune diseases as a cause of your fistula formation. Please also follow up with your colorectal surgeon. The Infectious Disease doctor was also recommending a possible biopsy of the wound edge to look for pyoderma. Total Time Total Time Spent Total Time Spent (In Minutes): 35 min Coding Level of Care Code 33499 INP/OBS DISCH >30 MIN Diagnoses Wound of left groin S31.109A Chronic ulcer of sacral region L98.429 Anemia D64.9 Peripheral arterial disease I73.9 Chronic kidney disease, stage III (moderate) N18.30 Aortic stenosis I35.0 Diabetic peripheral neuropathy associated with type 1 diabetes mellitus E10.42 Hypokalemia E87.6
[2023-08-16 15:32] VITALS: BP 116/77; PULSE 73; TEMP 98.2; O2SAT 96
[2023-08-20 00:32] LABS: ANCA Screen Negative (Negative); Albumin 2.6 g/dL (3.8-4.8); Alpha 1 Globulin 0.5 g/dL (0.2-0.3); Anti Nuclear Antibody Screen NEGATIVE (NEGATIVE); Beta-1-Globulin 0.4 g/dL (0.4-0.6); Beta-2-Globulin 0.6 g/dL (0.2-0.5); Gamma Globulin 1.2 g/dL (0.8-1.7); HBSAG NON-REACTIVE (NON-REACTIVE); Hepatitis B Core Antibody IgM NON-REACTIVE (NON-REACTIVE); Monoclonal Protein Band 1 DNR g/dL (NONE DETECTED); Monoclonal Protein Band 2 DNR g/dL (NONE DETECTED); Monoclonal Protein Band 3 DNR g/dL (NONE DETECTED); Total Protein 6.3 g/dL (6.1-8.1)
== END 2023-08-16 18:19 | disposition home health service (06) | DRG 605 ==
LOC: ED 17:33 → SUATTDRO 23:15 → 2S 23:15

== ENCOUNTER 2023-08-30 22:30 | Observation (INO) ==
[2023-08-30] MEDS ORDERED: DAPTOMYCIN IV STA (23:52)
[2023-08-30] MEDS ORDERED: PIPERACILLIN/TAZOBACTAM 4.5 GM in DEXTROSE 5% MINI-B 100 ML IV ONE (23:52)
--- NOTE | 2023-08-31 00:08 | Emergency Department Note ---
Impression & Plan Wound of left groin, Perineal fistula, Diabetic peripheral neuropathy associated with type 1 diabetes mellitus ED Provider Note NAME: BRANDON MOE Jr AGE: 68 SEX: M ARRIVES VIA: Ambulance INFORMANT: Patient ED PROVIDER(S): Anup Cesar MD CHIEF COMPLAINT: Worsening chronic wound. PLAN: Disposition: Admit MEDICAL DECISION MAKING: The patient is a pleasant 68-year-old gentleman with a past medical history of type 1 diabetes, peripheral neuropathy, CKD, history of left AKA and right BKA, left groin/perineal fistula/wound managed at [facility] by colorectal surgery with indwelling Duarte drain, history of colostomy to facilitate healing of chronic wound who presents to the emergency department via EMS and accompanied by family for concern for worsening of his chronic wound where they noted coalescing of 2 ulcerations into 1 large ulceration with continued drainage. They deny fevers, chills, cough, congestion. Patient denies any increased pain in this area. The patient was admitted to this facility from 08/10-08/16 for infection related to this ulceration and was discharged on oral antibiotics which the patient ports he has completed. He has home health coming to his home for dressing changes. He is supposed to follow-up with his colorectal specialist at [facility] but reports his appointment is not until the first week in September. They present to emergency department today requesting transfer to [facility] so they may see his colorectal surgeon. On arrival the patient is no acute distress, afebrile stable vital signs. Abdomen is nontender. Examination of the patient's perineal region demonstrates large left groin/perineal ulceration measuring approximately 10 cm in length and 5 cm in width where there appears to have been coalescence of previous cephalad and caudal ulcerations into 1 large deep ulceration with visualized [facility] drain. There is no surrounding erythema, warmth, crepitus. EKG without overt acute ischemia. WBC and platelets within normal limits. H/H similar to prior. Chemistry without metabolic acidosis. Lactic acid 3.4, nonspecific. ESR is 70, decreased from prior values in the 90s. CRP is 6.3, within prior range of values. CT of the ab pelvis was performed and does not demonstrate any fluid collection. [facility] drain is in place and note is made of adjacent gas likely related to his tunneling wound. Blood cultures obtained and empiric treatment initiated with IV Zosyn and daptomycin. Per the patient's request case was discussed with [facility] surgery on- call, Dr. Lamb who, per my description of the patient's wound progression and CT findings did not accept the patient for transfer and felt that the patient could follow-up as scheduled in September. He is aware that the family insists that the wound is worsening and cannot take him home and that we will refer him to our hospital service for admission who will reach out to his colorectal specialist in the morning. Triage Nursing notes reviewed and agree them. Prior/external medical records reviewed Vital Signs: reviewed Differential diagnosis: Cellulitis, abscess, MRSA infection, DVT, necrotizing fasciitis, dermatitis, drug eruption, allergic reaction, as well as other pathologies. ER treatment provided: See below. Diagnostics interpreted by me: ECG: Sinus Rhythm with PACs, 83 Bpm, Right Bundle Branch Block, no overt ST elevation or depression, QTc 517, QRS 158. Cardiac Monitoring: An order for continuous cardiac monitoring was placed and demonstrated Sinus Rhythm with PACs, 83 Bpm. Laboratory studies: See below Imaging studies: See below Consultation(s): Dr. Lamb, [facility] reyes on-call. [place] surgery PAC, with Dr. Shankar, general surgery on-call. HPI: The patient is a pleasant 68-year-old gentleman with a past medical history of type 1 diabetes, peripheral neuropathy, CKD, history of left AKA and right BKA, left groin/perineal fistula/wound managed at [facility] by colorectal surgery with indwelling Duarte drain, history of colostomy to facilitate healing of chronic wound who presents to the emergency department via EMS and accompanied by family for concern for worsening of his chronic wound where they noted coalescing of 2 ulcerations into 1 large ulceration with continued drainage. They deny fevers, chills, cough, congestion. Patient denies any increased pain in this area. The patient was admitted to this facility from 08/10-08/16 for infection related to this ulceration and was discharged on oral antibiotics which the patient ports he has completed. He has home health coming to his home for dressing changes. He is supposed to follow-up with his colorectal specialist at [facility] but reports his appointment is not until the first week in September. They present to emergency department today requesting transfer to [facility] so they may see his colorectal surgeon. ROS: See above HPI for pertinent positives & negatives. A total of 10 systems reviewed and were otherwise negative. VITALS:See Below PHYSICAL EXAMINATION: GENERAL: Awake, alert, chronically-appearing, in no distress HENT: Normocephalic, atraumatic. Oropharynx with dry mucous membranes and otherwise unremarkable. EYES: Normal conjunctiva. Sclera non-icteric. NECK: Supple. No nuchal rigidity. FROM. No JVD. RESPIRATORY: Clear to auscultation. CARDIAC: Regular rate, normal rhythm. Extremities warm and well perfused. Pulses equal. ABDOMEN: Soft, non-distended. No tenderness to palpation. No rebound or guarding. No masses. PERINEUM: Large left groin/perineal ulceration measuring approximately 10 cm in length and 5 cm in width where there appears to have been coalescence of previous cephalad and caudal ulcerations into 1 large deep ulceration with visualized [facility] Joseph drain. There is no surrounding erythema, warmth, crepitus. MUSCULOSKELETAL: Chest examination reveals no tenderness. The back is symmetrical on inspection without obvious abnormality. There is no CVA tenderness to palpation. No joint edema. LOWER EXTREMITIES: RLE BKA, LLE AKA NEURO: Normal sensorium. No sensory or motor deficits noted. SKIN: No rash or jaundice noted. Anup Cesar MD Past Med/Surg History Medical History BPH (benign prostatic hyperplasia) Cellulitis of perineum Cellulitis of scrotum Anemia Above knee amputation of left lower extremity Surgical wound, non healing Stage III pressure ulcer 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) Hx MRSA infection 01/2022 (left heel) Type I diabetes mellitus, uncontrolled Candidal diaper rash History of colon polyps History of Clostridium difficile infection s/p treatment (2020) Below-knee amputation of right lower extremity Clostridium difficile colitis DVT prophylaxis Folate deficiency Constipation Anemia COPD (chronic obstructive pulmonary disease) GERD (gastroesophageal reflux disease) Dyslipidemia Hypertension Hypothyroidism Vitamin D deficiency Aortic stenosis s/p porcine valve replacement (2015) + CABG x1 Follows with [facility] cardio CAD (coronary artery disease) s/p CABG x 1 (2015) Surgical History Hx laparoscopic cholecystectomy (07/17/23) Robotic assisted Laparoscopic Cholecystectomy(Not Applicable) - Markus Dawson, DO, FACS Hx of cystoscopy w/stent placement; stent then removed S/P femoral-tibial bypass Below-knee amputation of right lower extremity H/O vascular surgery Right Femoral to Posterior tibial Prosthetic Bypass Graft(Right) History of skin graft Split Thickness Skin Graft of Left Lateral Ankle (11/18/20): LMA#5, atraumatic x1 at [facility] Hx of surgical procedure Left Leg Wound Debridement and Irrigation History of arterial bypass of lower extremity Left femoral to PT composite bypass graft (06/2020) History of carpal tunnel release R/L History of tooth extraction History of tonsillectomy History of myringotomy w/tubes bilat. S/P femoropopliteal bypass surgery Right fem-pop bypass graft (01/19/21): Grade 2 view, MAC 3.0, ETT 8.0 at [facility] History of cardiac cath x2, most recent 2016 > no stents (subsequent CABG with AVR in 2015); [facility] History of umbilical hernia repair S/P insertion of iliac artery stent B/L iliac stent placement (2014) H/O endarterectomy R common femoral (11/2018) History of open reduction and internal fixation (ORIF) procedure LLE () History of colonoscopy History of esophagogastroduodenoscopy (EGD) History of aortic valve replacement 2015 ([facility]) H/O cataract extraction R/L History of ankle surgery LEFT ANKLE +HARDWARE REMOVED History of coronary artery bypass graft CABG x1 + AVR (2015) 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 Left transmetatarsal amputation (11/23/21): LMA# 5.0 at [facility]. No issues noted per post-op anesthesia progress note. HX 1 SX TO REMOVE ALL TOES LEFT FOOT NOVEMBER 2021 Family History Brother Family history of diabetes mellitus Sister Family history of diabetes mellitus Mother Family history of diabetes mellitus Grandmother (Maternal) Family history of diabetes mellitus Uncle Family hx of colon cancer Colorectal cancer Father Family history of esophageal cancer Sister Family history of diabetes mellitus Other No family history of adverse response to anesthesia Denies family history of Ovarian cancer Prostate cancer Myocardial infarction Breast cancer Social History Smoking Status: Former smoker Tobacco Type: Cigarettes Second Hand Exposure: Yes (as a child); Do You Dip or Chew Tobacco: No; Hx Alcohol Use: No Hx Substance Use: No Preferred Language: Chilean Communication Ability: Effective Visual Impairment: No Limitations Hearing Ability: Hard of Hearing Zigzag Machine Operator Required: No Beliefs That Will Affect Care: None marital status: Current Living Situation: Other Current Living Situation Comment: friend current occupational status: disabled How many Children do You have: 2 How many Children do You have Comment: family assists with care, also is part of the waiver program so the pt's roommate is able to assist with care through this program Feels Safe at Home: Yes Safety Concerns: Feels Safe At This Time Childhood Exposure to Second-Hand Smoke: Yes Diet: diabetic Diet Comment: Carb Counts. ([id number], roughly), protein drinks caffeine: Yes (coffee, rarely ) during the past year weight has: remained stable Dental Care, Regularly: No Seatbelt Use: always Sunscreen Use: No Gender Identity: Male Assistive Devices: Denture - Upper, Glasses, Prosthesis and Wheelchair Allergies Allergies Allergy/AdvReac Type Severity Reaction Status Date / Time No Known Allergies Allergy Unknown Verified 08/30/23 23:19 Home Meds Home Medications Medication Instructions Recorded Confirmed aspirin 81 mg tablet,delayed 81 mg PO QAM 05/04/21 08/30/23 release (Mohit Low Dose Aspirin) acetaminophen 500 mg tablet 1,000 mg PO Q8 PRN Pain 07/18/22 08/30/23 (Tylenol Extra Strength) insulin aspart U-100 100 unit/mL 0 unit continuous subcutaneous 11/25/22 08/30/23 subcutaneous solution (Novolog infusion CONTINOUS U-100 Insulin aspart) menthol 0.44 %-zinc oxide 20.6 % 1 applic EXT TID 11/25/22 08/30/23 topical ointment (Calmoseptine) zinc oxide 16 % topical ointment 1 applic EXT TID 11/25/22 08/30/23 (Boudreauxs Butt Paste) mupirocin 2 % topical ointment 1 applic topical Q12H 05/12/23 08/30/23 tramadol 50 mg tablet 50 - 100 mg PO Q6 PRN pain 05/22/23 08/30/23 potassium chloride 20 mEq 20 meq PO BID 07/12/23 08/30/23 tablet,extended release levothyroxine 175 mcg tablet 175 mcg PO DAILYBB 08/30/23 08/30/23 (Synthroid) Previous Rx's Medication Instructions Recorded atorvastatin 80 mg tablet (Lipitor) 80 mg PO HS #90 tabs 11/15/21 magnesium oxide 400 mg (241.3 mg 400 mg PO QAM #30 tabs 07/07/22 magnesium) tablet metoprolol tartrate 25 mg tablet 12.5 mg (1/2 x 25 mg) PO BID #90 08/08/22 tabs clopidogrel 75 mg tablet (Plavix) 75 mg PO QAM #30 tabs 08/19/22 pantoprazole 40 mg tablet,delayed 40 mg PO DAILY #90 tabs 12/12/22 release (Protonix) Replacement Brakes for Manual #1 ea 05/12/23 Wheelchair tamsulosin 0.4 mg capsule 0.4 mg PO DAILY #90 caps 05/18/23 cyclobenzaprine 10 mg tablet 10 mg PO Q8H PRN Muscle Spasm #90 06/16/23 tabs Mattress (Air or other) #1 ea 06/19/23 Wheelchair (Manual) (Manual #1 ea 06/19/23 Wheelchair) ferrous sulfate 325 mg (65 mg 325 mg PO BID #60 tabs 06/19/23 iron) tablet,delayed release chlorthalidone 25 mg tablet 25 mg PO QAM #90 tabs 07/03/23 ezetimibe 10 mg tablet 10 mg PO DAILY #30 tabs 07/10/23 folic acid 1 mg tablet 1 mg PO QAM #90 tabs 07/24/23 simethicone 125 mg capsule (Gas-X 125 mg PO DAILY PRN abdominal 07/24/23 Extra Strength) distention #14 caps ondansetron 4 mg disintegrating 4 mg PO Q6H PRN nausea and 07/25/23 tablet vomiting #30 tabs miconazole nitrate 2 % topical 1 applic EXT BID apply to rash on 08/16/23 powder (Desenex) buttocks and groin #85 grams calcitriol 0.25 mcg capsule 0.25 mcg PO QAM #30 caps 08/21/23 (Rocaltrol) trazodone 100 mg tablet 100 mg PO HS #90 tabs 08/28/23 Results & Data (ED) Vital Signs Vital Signs - 24 hr 08/30/23 22:57 08/30/23 23:01 08/31/23 00:33 Temperature 36.5 C Temperature Source Oral Pulse Rate 81 97 H Pulse Rate [Apical] 78 Pulse Rate from SpO2 Sensor Respiratory Rate 18 20 Respiratory Effort / Characteristics Respiratory Depth Blood Pressure 132/71 Blood Pressure [Left Calf] Blood Pressure Mean 91 Blood Pressure Mean [Left Calf] Pulse Oximetry 96 97 Oxygen Delivery Method Room Air Room Air Sepsis Recent Fever Within 48 Hours No Sepsis New/Unexplained Change in Mental Status No Sepsis Action Taken by Nursing No Action Required 08/31/23 00:40 08/31/23 01:00 08/31/23 02:16 Temperature Temperature Source Pulse Rate 77 Pulse Rate [Apical] 79 73 Pulse Rate from SpO2 Sensor 77 Respiratory Rate 16 16 Respiratory Effort / Characteristics Non-Labored Spontaneous Respiratory Depth Normal Blood Pressure 143/94 H Blood Pressure [Left Calf] 136/81 127/72 Blood Pressure Mean 110 Blood Pressure Mean [Left Calf] 99 90 Pulse Oximetry 98 Oxygen Delivery Method Room Air Sepsis Recent Fever Within 48 Hours Sepsis New/Unexplained Change in Mental Status Sepsis Action Taken by Nursing 08/31/23 02:56 Temperature Temperature Source Pulse Rate 79 Pulse Rate [Apical] Pulse Rate from SpO2 Sensor Respiratory Rate Respiratory Effort / Characteristics Respiratory Depth Blood Pressure Blood Pressure [Left Calf] Blood Pressure Mean Blood Pressure Mean [Left Calf] Pulse Oximetry Oxygen Delivery Method Sepsis Recent Fever Within 48 Hours Sepsis New/Unexplained Change in Mental Status Sepsis Action Taken by Nursing Laboratory Data Attestation: I reviewed the patient's lab results. 08/31/23 00:13 08/31/23 00:02 Lab Results 08/31/23 08/31/23 08/31/23 Range/Units 00:02 00:13 04:11 WBC 9.76 (4.8-10.8) K/ul RBC 4.68 L (4.70-6.10) M/uL Hgb 12.6 L (14.0-18.0) g/dl Hct 39.2 L (42.0-52.0) % MCV 83.8 (80.0-100.0) fL MCH 26.9 (25.0-34.0) pg MCHC 32.1 (32.0-36.0) g/dL RDW Std Deviation 44.9 (36.4-46.3) fL RDW Coeff of Chan 14.7 H (11.5-14.5) % Plt Count 363 (130-400) K/uL MPV 9.8 (9.4-12.4) fL Immature Gran % (Auto) 0.4 % Neut % (Auto) 63.1 % Lymph % (Auto) 21.2 % [place] % (Auto) 11.6 % Eos % (Auto) 3.2 % Baso % (Auto) 0.5 % Neut # (Auto) 6.16 (1.40-6.50) K/uL Lymph # (Auto) 2.07 (1.20-3.40) K/uL [place] # (Auto) 1.13 H (0.11-0.59) K/uL Eos # (Auto) 0.31 (0.00-0.50) K/uL Baso # (Auto) 0.05 (0.00-0.20) K/uL Immature Gran # (Auto) 0.04 (0.01-0.20) K/uL ESR 71 H (0-20) mm/hr Sodium 135 L (136-145) mmol/L Potassium 3.5 (3.5-5.1) mmol/L Chloride 96 L (98-107) mmol/L Carbon Dioxide 31 (21-32) mmol/L Anion Gap 8 (3-11) BUN 11 (6-23) mg/dl Creatinine 0.81 (0.6-1.4) mg/dl Est Cr Clr Drug Dosing Not Reportable Est GFR ( Amer) 107.3 ml/min Est GFR (Non-Af Amer) 92.6 ml/min BUN/Creatinine Ratio 13.6 (10-20) Glucose 208 H (70-99(Fasting)) mg/dl Lactate 3.4 H* 1.8 (0.4-2.0) mmol/L Calcium 8.5 L (8.6-10.3) mg/dl Total Bilirubin 0.4 (0.2-1.0) mg/dl AST 12 L (13-39) U/L ALT 10 (7-52) U/L Alkaline Phosphatase 99 (34-104) U/L Total Creatine Kinase 30 (30-223) U/L C-Reactive Protein 6.31 H (0-0.5) mg/dl Total Protein 6.9 (6.0-8.3) gm/dl Albumin 3.2 L (3.4-5.0) gm/dl Globulin 3.7 (2.5-4.0) gm/dl Albumin/Globulin Ratio 0.9 (0.9-2) Administered Medications Sodium Chloride (Nss) 500 mls @ 125 mls/hr IV .Q4H LIZZY Stop: 09/29/23 23:44 Last Admin: 08/31/23 06:50 Dose: 125 mls/hr Documented By: Infusion: 08/31/23 06:05 Dose: Infused Documented By: Admin: 08/31/23 04:50 Dose: 125 mls/hr Documented By: Infusion: 08/31/23 04:49 Dose: Infused Documented By: Admin: 08/31/23 00:32 Dose: 125 mls/hr Documented By: JESE Discontinued Medications Piperacillin Sod/Tazobactam (Sod 4.5 gm/ Dextrose) 100 mls @ 200 mls/hr IV NOW ONE; Protocol Stop: 08/31/23 00:21 Last Infusion: 08/31/23 02:13 Dose: Infused Documented By: Admin: 08/31/23 00:58 Dose: 200 mls/hr Documented By: JESE Daptomycin 420 mg/ Syringe 8.4 mls @ 4.2 mls/min IV NOW STA; Protocol Stop: 08/30/23 23:53 Last Admin: 08/31/23 00:59 Dose: 4.2 mls/min Documented By: JESE Ioversol (Optiray 320 500ml) 100 ml IV ONCE ONE Stop: 08/31/23 01:16 Last Admin: 08/31/23 01:15 Dose: 87 ml Documented By: NANCIE Imaging Data Radiologist's Impression: Abdomen/Pelvis CT 08/30/23 23:52 Exam(s): CT ABDOMEN + PELVIS With Contrast IV Amt: 87 ML OPTIRAY 320 EXAM: CT Abdomen and Pelvis With Intravenous Contrast CLINICAL HISTORY: worsening chronic perineal/groin wound, [facility]. TECHNIQUE: Axial computed tomography images of the abdomen and pelvis with intravenous contrast. CTDI is 21.84 mGy and DLP is 1218.69 mGy-cm. Automated exposure control was utilized for the study. A dose lowering technique was utilized adhering to the principles of ALARA. CONTRAST: Patient received 87 ML OPTIRAY 320 of IV contrast COMPARISON: CT abdomen and pelvis with contrast dated 08/10/2023 FINDINGS: Lung bases: Similar curvilinear changes at the lung bases. No consolidation. ABDOMEN: Liver: Unremarkable. No mass. Gallbladder and bile ducts: Cholecystectomy. No ductal dilation. Pancreas: The atrophic pancreas is similar in morphology and enhancement pattern. No ductal dilation. Spleen: Unremarkable. No splenomegaly. Adrenals: Unremarkable. No mass. Kidneys and ureters: Unremarkable. No solid mass. No hydronephrosis. Stomach and bowel: The mucosal prominence involving the decompressed distal rectosigmoid is stable, again most significant involving the distal rectum with similar to minimally increased perirectal fat stranding. Diverting colostomy in the left lower quadrant is noted. No bowel obstruction. No other asymmetric bowel mucosal abnormality. Mild to moderate stool burden. PELVIS: Appendix: No findings to suggest acute appendicitis. Bladder: Similar asymmetric mucosal thickening involving the bladder. There is a solitary bladder stone noted posteriorly in the bladder. Reproductive: Unremarkable as visualized. Subperitoneal space: The previously noted surgical packing in the left perirectal region is again noted without significant alteration. There is no residual fluid but minimal gas identified anteriorly. ABDOMEN and PELVIS: Intraperitoneal space: Unremarkable. No free air. No significant fluid collection. Bones/joints: No acute fracture. No dislocation. Soft tissues: See above. No significant alteration from the previous examination. Vasculature: Extensive atherosclerotic calcification of the aorta and iliac arteries, stable. No alteration. No abdominal aortic aneurysm. Lymph nodes: Unremarkable. No enlarged lymph nodes. IMPRESSION: 1. The previously noted surgical packing in the left perirectal region is again noted without significant alteration. There is no residual fluid but minimal gas identified anteriorly. 2. The mucosal prominence involving the decompressed distal rectosigmoid is stable, again most significant involving the distal rectum with similar to minimally increased perirectal fat stranding. 3. No other significant alteration from the previous examination. Electronically signed by: Prince Lee MD 08/31/23 01:33 AM Discharge Plan Visit Data Chief Complaint: Groin Pain Stated Complaint: GROIN PAIN, WOUNDS ED Provider: Anup Cesar Discharge Problem: Wound of left groin, Perineal fistula, Diabetic peripheral neuropathy associated with type 1 diabetes mellitus Patient Disposition: Admitted As Inpatient Discharge Instructions Interventions: ED Discharge Assessment Last Done: 08/31/23 06:02 Discharge Problem: Wound of left groin Qualifiers: Encounter type: initial encounter Qualified Code(s): S31.109A - Unspecified open wound of abdominal wall, unspecified quadrant without penetration into peritoneal cavity, initial encounter
[2023-08-31] MEDS: SODIUM CHLORIDE 0.9% 500 ML IV SCH ×4 (00:32→18:40)
[2023-08-31 00:56] LABS: Basophils # (auto) 0.05 K/uL (0.00-0.20); Basophils % (auto) 0.5 %; Eosinophils # (auto) 0.31 K/uL (0.00-0.50); Eosinophils % (auto) 3.2 %; Hematocrit (blood only) 39.2 % (42.0-52.0); Hemoglobin 12.6 g/dl (14.0-18.0); Immature Granulocytes # (auto) 0.04 K/uL (0.01-0.20); Immature Granulocytes % (auto) 0.4 %; Lymphocytes # (auto) 2.07 K/uL (1.20-3.40); Lymphocytes % (auto) 21.2 %; Mean Corpuscular Hemoglobin 26.9 pg (25.0-34.0); Mean Corpuscular Hgb Conc 32.1 g/dL (32.0-36.0); Mean Corpuscular Volume 83.8 fL (80.0-100.0); Mean Platelet Volume 9.8 fL (9.4-12.4); Monocytes # (auto) 1.13 K/uL (0.11-0.59); Monocytes % (auto) 11.6 %; Neutrophils # (auto) 6.16 K/uL (1.40-6.50); Neutrophils % (auto) 63.1 %; Platelet Count 363 K/uL (130-400); RDW Coefficient of Variation 14.7 % (11.5-14.5); RDW Standard Deviation 44.9 fL (36.4-46.3); Red Blood Count 4.68 M/uL (4.70-6.10); White Blood Count 9.76 K/ul (4.8-10.8)
[2023-08-31 01:00] LABS: Alanine Aminotransferase 10 U/L (7-52); Albumin Globulin Ratio 0.9 (0.9-2); Albumin Level 3.2 gm/dl (3.4-5.0); Alkaline Phosphatase 99 U/L (34-104); Anion Gap 8 (3-11); Aspartate Aminotransferase 12 U/L (13-39); BUN Creatinine Ratio 13.6 (10-20); Bilirubin,Total 0.4 mg/dl (0.2-1.0); Blood Urea Nitrogen 11 mg/dl (6-23); C Reactive Protein 6.31 mg/dl (0-0.5); Calcium 8.5 mg/dl (8.6-10.3); Carbon Dioxide 31 mmol/L (21-32); Chloride 96 mmol/L (98-107); Creatine Kinase 30 U/L (30-223); Est GFR (African American) 107.3 ml/min; Est GFR (Non-African American) 92.6 ml/min; Globulin 3.7 gm/dl (2.5-4.0); Glucose 208 mg/dl (70-99(Fasting)); Potassium 3.5 mmol/L (3.5-5.1); Sodium 135 mmol/L (136-145); Total Protein 6.9 gm/dl (6.0-8.3)
[2023-08-31] MEDS ORDERED: OPTIRAY 320 500ml IV ONE (01:15)
--- NOTE | 2023-08-31 01:34 | CT Scan Report ---
Exam(s): CT ABDOMEN + PELVIS With Contrast IV Amt: 87 ML OPTIRAY 320 EXAM: CT Abdomen and Pelvis With Intravenous Contrast CLINICAL HISTORY: worsening chronic perineal/groin wound, [facility]arte. TECHNIQUE: Axial computed tomography images of the abdomen and pelvis with intravenous contrast. CTDI is 21.84 mGy and DLP is 1218.69 mGy-cm. Automated exposure control was utilized for the study. A dose lowering technique was utilized adhering to the principles of ALARA. CONTRAST: Patient received 87 ML OPTIRAY 320 of IV contrast COMPARISON: CT abdomen and pelvis with contrast dated 08/10/2023 FINDINGS: Lung bases: Similar curvilinear changes at the lung bases. No consolidation. ABDOMEN: Liver: Unremarkable. No mass. Gallbladder and bile ducts: Cholecystectomy. No ductal dilation. Pancreas: The atrophic pancreas is similar in morphology and enhancement pattern. No ductal dilation. Spleen: Unremarkable. No splenomegaly. Adrenals: Unremarkable. No mass. Kidneys and ureters: Unremarkable. No solid mass. No hydronephrosis. Stomach and bowel: The mucosal prominence involving the decompressed distal rectosigmoid is stable, again most significant involving the distal rectum with similar to minimally increased perirectal fat stranding. Diverting colostomy in the left lower quadrant is noted. No bowel obstruction. No other asymmetric bowel mucosal abnormality. Mild to moderate stool burden. PELVIS: Appendix: No findings to suggest acute appendicitis. Bladder: Similar asymmetric mucosal thickening involving the bladder. There is a solitary bladder stone noted posteriorly in the bladder. Reproductive: Unremarkable as visualized. Subperitoneal space: The previously noted surgical packing in the left perirectal region is again noted without significant alteration. There is no residual fluid but minimal gas identified anteriorly. ABDOMEN and PELVIS: Intraperitoneal space: Unremarkable. No free air. No significant fluid collection. Bones/joints: No acute fracture. No dislocation. Soft tissues: See above. No significant alteration from the previous examination. Vasculature: Extensive atherosclerotic calcification of the aorta and iliac arteries, stable. No alteration. No abdominal aortic aneurysm. Lymph nodes: Unremarkable. No enlarged lymph nodes. IMPRESSION: 1. The previously noted surgical packing in the left perirectal region is again noted without significant alteration. There is no residual fluid but minimal gas identified anteriorly. 2. The mucosal prominence involving the decompressed distal rectosigmoid is stable, again most significant involving the distal rectum with similar to minimally increased perirectal fat stranding. 3. No other significant alteration from the previous examination. Electronically signed by: Prince Lee MD 08/31/23 01:33 AM
--- NOTE | 2023-08-31 03:04 | Surgery Consultation ---
Date of Consultation August 31, 2023 Assessment & Plan (1) Chronic ulcer of sacral region: I discussed the case with the treating clinician in the emergency department the patient is being admitted on the hospitalist service. According to the emergency room physician the patient initially requested transfer to [facility] however after discussion with the on-call colorectal surgeon it was not felt that transfer was required at this time. The patient will therefore be admitted on the hospitalist service. From surgical perspective we recommend the following: May be beneficial to place the patient on antibiotics. The patient has already been initiated on daptomycin and Zosyn The patient has had blood and wound cultures obtained and antibiotics can be tailored based on the results of these cultures Wound care should be consulted Appropriate offloading measures should be employed Patient will be evaluated by my attending physician Dr. Lyndon Shankar the morning of 08/31/2023. Additional recommendations will follow based on Dr. Shankar's evaluation. Based on the patient's clinical response to the above noted measures we may recommend reaching out to [facility] colorectal surgeon for further recommendations. At the present time the patient does not appear toxic or septic therefore I do not feel any type of emergent surgical intervention is required at this time. Supervising Physician Co-Signing Physician Notes I personally saw and evaluated the patient with Jesus Hill PA-C and agree with the assessment and plan 68 yo male with chronic perineal wound I personally reviewed and interpreted his CT images and results He has no undrained fluid collection clinically or on CT Continue local wound care No plans for any surgical debridement He can be discharged from a surgical standpoint and encouraged to keep his f/u with his operating surgeon on Sep 13 Surgery will sign off, please call with any questions or concerns History of Present Illness Reason for Consultation: Chronic perineal fistula History of Present Illness This is a 68-year-old male who had a history of a chronic left rectal abscess. The patient underwent an incision and drainage of his rectal abscess on 01/13/[address] Vides of [facility] colorectal surgery department. During this procedure the patient had a [place] drain placed which remains in place today. Since that surgery the patient has undergone a diverting colostomy on 03/08/2023. The patient has since a chronic perineal fistula with Duarte drain in place. The patient was most recently admitted to [facility] from 08/10/2023 through 08/16/2023. Secondary to issues with his wound. During this admission he was seen by surgery and no surgical debridement or surgical intervention was required. The patient was discharged on oral antibiotics in the form of cefadroxil and metronidazole. The patient notes that he completed these antibiotics last week. The patient was brought to the emergency department by EMS as both the patient and his family felt that there is a worsening appearance of the patient's wound. He does not report any worsening pain of the wound. The patient notes that there was previously a cephalad and caudal component of the his the patient is a wound but the wound has now coalesced into 1 ulceration which was not present previously. He also specifically denies any fevers, shakes, or chills. The patient notes that there is occasional pus and blood draining from the wound which was not uncommon but he does feel that it might be slightly increased from what he noted previously. Patient denies any abdominal pain. He does have a colostomy as noted above and he notes that this is working appropriately. He does not report any other concerning signs or symptoms at this time. Since arrival to the hospital patient has had labs and imaging which independent reviewed. A CT scan of the abdomen pelvis showed the patient had surgical packing in the left perirectal region. There is no residual fluid noted in this region and there is minimal gas identified. There did not appear to be any significant change on the scan when compared to the patient's most recent scan performed at [facility] from 08/10/2023. Labs include a CBC her white blood cell count and platelet count were normal. His hemoglobin and hematocrit were 12.6 and 39.2. Chemistry profile showed sodium was 135 with a normal potassium. BUN and creatinine were both within normal range. Patient did have an elevated lactic acid level at 3.4. At the time of my interview the patient was resting comfortably in bed and he was in no distress. Allergies Allergy/AdvReac Type Severity Reaction Status Date / Time No Known Allergies Allergy Unknown Verified 08/30/23 23:19 Home Medications Medication Instructions Recorded Confirmed Type aspirin 81 mg tablet,delayed 81 mg PO QAM 05/04/21 08/30/23 History release (Mohit Low Dose Aspirin) atorvastatin 80 mg tablet (Lipitor) 80 mg PO HS #90 tabs 11/15/21 08/30/23 Rx magnesium oxide 400 mg (241.3 mg 400 mg PO QAM #30 tabs 07/07/22 08/30/23 Rx magnesium) tablet acetaminophen 500 mg tablet 1,000 mg PO Q8 PRN Pain 07/18/22 08/30/23 History (Tylenol Extra Strength) metoprolol tartrate 25 mg tablet 12.5 mg (1/2 x 25 mg) PO BID #90 08/08/22 08/30/23 Rx tabs clopidogrel 75 mg tablet (Plavix) 75 mg PO QAM #30 tabs 08/19/22 08/30/23 Rx insulin aspart U-100 100 unit/mL 0 unit continuous subcutaneous 11/25/22 08/30/23 History subcutaneous solution (Novolog infusion CONTINOUS U-100 Insulin aspart) menthol 0.44 %-zinc oxide 20.6 % 1 applic EXT TID 11/25/22 08/30/23 History topical ointment (Calmoseptine) zinc oxide 16 % topical ointment 1 applic EXT TID 11/25/22 08/30/23 History (Boudreauxs Butt Paste) pantoprazole 40 mg tablet,delayed 40 mg PO DAILY #90 tabs 12/12/22 08/30/23 Rx release (Protonix) Replacement Brakes for Manual #1 ea 05/12/23 08/29/23 Rx Wheelchair mupirocin 2 % topical ointment 1 applic topical Q12H 05/12/23 08/30/23 History tamsulosin 0.4 mg capsule 0.4 mg PO DAILY #90 caps 05/18/23 08/30/23 Rx tramadol 50 mg tablet 50 - 100 mg PO Q6 PRN pain 05/22/23 08/30/23 History cyclobenzaprine 10 mg tablet 10 mg PO Q8H PRN Muscle Spasm #90 06/16/23 08/30/23 Rx tabs Mattress (Air or other) #1 ea 06/19/23 08/29/23 Rx Wheelchair (Manual) (Manual #1 ea 06/19/23 08/29/23 Rx Wheelchair) ferrous sulfate 325 mg (65 mg 325 mg PO BID #60 tabs 06/19/23 08/30/23 Rx iron) tablet,delayed release chlorthalidone 25 mg tablet 25 mg PO QAM #90 tabs 07/03/23 08/30/23 Rx ezetimibe 10 mg tablet 10 mg PO DAILY #30 tabs 07/10/23 08/30/23 Rx potassium chloride 20 mEq 20 meq PO BID 07/12/23 08/30/23 History tablet,extended release folic acid 1 mg tablet 1 mg PO QAM #90 tabs 07/24/23 08/30/23 Rx simethicone 125 mg capsule (Gas-X 125 mg PO DAILY PRN abdominal 07/24/23 08/30/23 Rx Extra Strength) distention #14 caps ondansetron 4 mg disintegrating 4 mg PO Q6H PRN nausea and 07/25/23 08/30/23 Rx tablet vomiting #30 tabs miconazole nitrate 2 % topical 1 applic EXT BID apply to rash on 08/16/23 08/30/23 Rx powder (Desenex) buttocks and groin #85 grams calcitriol 0.25 mcg capsule 0.25 mcg PO QAM #30 caps 08/21/23 08/30/23 Rx (Rocaltrol) trazodone 100 mg tablet 100 mg PO HS #90 tabs 08/28/23 08/30/23 Rx levothyroxine 175 mcg tablet 175 mcg PO DAILYBB 08/30/23 08/30/23 History (Synthroid) Patient History Medical History BPH (benign prostatic hyperplasia) Cellulitis of perineum Cellulitis of scrotum Anemia Above knee amputation of left lower extremity Surgical wound, non healing Stage III pressure ulcer 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) Hx MRSA infection 01/2022 (left heel) Type I diabetes mellitus, uncontrolled Candidal diaper rash History of colon polyps History of Clostridium difficile infection s/p treatment (2020) Below-knee amputation of right lower extremity Clostridium difficile colitis DVT prophylaxis Folate deficiency Constipation Anemia COPD (chronic obstructive pulmonary disease) GERD (gastroesophageal reflux disease) Dyslipidemia Hypertension Hypothyroidism Vitamin D deficiency Aortic stenosis s/p porcine valve replacement (2015) + CABG x1 Follows with [facility] cardio CAD (coronary artery disease) s/p CABG x 1 (2015) Surgical History Hx laparoscopic cholecystectomy (07/17/23) Robotic assisted Laparoscopic Cholecystectomy(Not Applicable) - Markus Dawson, DO, FACS Hx of cystoscopy w/stent placement; stent then removed S/P femoral-tibial bypass Below-knee amputation of right lower extremity H/O vascular surgery Right Femoral to Posterior tibial Prosthetic Bypass Graft(Right) History of skin graft Split Thickness Skin Graft of Left Lateral Ankle (11/18/20): LMA#5, atraumatic x1 at [facility] Hx of surgical procedure Left Leg Wound Debridement and Irrigation History of arterial bypass of lower extremity Left femoral to PT composite bypass graft (06/2020) History of carpal tunnel release R/L History of tooth extraction History of tonsillectomy History of myringotomy w/tubes bilat. S/P femoropopliteal bypass surgery Right fem-pop bypass graft (01/19/21): Grade 2 view, MAC 3.0, ETT 8.0 at [facility] History of cardiac cath x2, most recent 2016 > no stents (subsequent CABG with AVR in 2015); [facility] History of umbilical hernia repair S/P insertion of iliac artery stent B/L iliac stent placement (2014) H/O endarterectomy R common femoral (11/2018) History of open reduction and internal fixation (ORIF) procedure LLE () History of colonoscopy History of esophagogastroduodenoscopy (EGD) History of aortic valve replacement 2015 ([facility] [place]) H/O cataract extraction R/L History of ankle surgery LEFT ANKLE +HARDWARE REMOVED History of coronary artery bypass graft CABG x1 + AVR (2015) 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 Left transmetatarsal amputation (11/23/21): LMA# 5.0 at [facility]. No issues noted per post-op anesthesia progress note. HX 1 SX TO REMOVE ALL TOES LEFT FOOT NOVEMBER 2021 Family History Brother Family history of diabetes mellitus Sister Family history of diabetes mellitus Mother Family history of diabetes mellitus Grandmother (Maternal) Family history of diabetes mellitus Uncle Family hx of colon cancer Colorectal cancer Father Family history of esophageal cancer Sister Family history of diabetes mellitus Other No family history of adverse response to anesthesia Denies family history of Ovarian cancer Prostate cancer Myocardial infarction Breast cancer Social History Smoking Status: Former smoker Tobacco Type: Cigarettes Second Hand Exposure: Yes (as a child); Do You Dip or Chew Tobacco: No; Hx Alcohol Use: No Hx Substance Use: No Preferred Language: Venezuelan Communication Ability: Effective Visual Impairment: No Limitations Hearing Ability: Hard of Hearing [employer] Required: No Beliefs That Will Affect Care: None marital status: Current Living Situation: Other Current Living Situation Comment: friend current occupational status: disabled How many Children do You have: 2 How many Children do You have Comment: family assists with care, also is part of the waiver program so the pt's roommate is able to assist with care through this program Feels Safe at Home: Yes Safety Concerns: Feels Safe At This Time Childhood Exposure to Second-Hand Smoke: Yes Diet: diabetic Diet Comment: Carb Counts. ([id number], roughly), protein drinks caffeine: Yes (coffee, rarely ) during the past year weight has: remained stable Dental Care, Regularly: No Seatbelt Use: always Sunscreen Use: No Gender Identity: Male Assistive Devices: Denture - Upper, Glasses, Prosthesis and Wheelchair Review of Systems Constitutional: no fever and no chills Ear, Nose, Mouth, Throat: no hearing loss Respiratory: no cough Cardiovascular: no chest pain Gastrointestinal: no abdominal pain, no nausea and no vomiting Genitourinary: no dysuria Musculoskeletal: no back pain Integumentary: no rash Neurologic: no localized weakness Physical Exam Physical Exam: In the patient's perineum the patient was noted to have a large left groin and perineal wound which measured approximately 10 cm x 5 cm. There is a Duarte d rain in place. There is minimal surrounding erythema to the wound. There is no crepitus noted in the soft tissue. There is a small amount of purulent drainage from the wound. Constitutional: WD/WN, vitals as above Eyes: no conjunctival abnormality ENMT: Ears: no hearing impairment Neck: trachea midline Respiratory: normal respiratory effort; no respiratory distress and no labored breathing Cardiovascular: Rate/Rhythm: regular rate and regular rhythm Gastrointestinal (Abdomen): Abdomen is soft and nondistended. The patient had a colostomy in the left side of his abdomen that appeared to be patent and working appropriately. There is no rebound tenderness or guarding with palpation of his abdomen Musculoskeletal: Bilateral lower extremity amputations noted. Neurologic: moves all extremities Results & Data Vital Signs (Past 12 Hours) Vital Signs Temp Pulse Pulse Resp BP BP Pulse Ox 08/31/23 02:16 73 16 127/72 08/31/23 01:00 77 16 143/94 H 98 08/31/23 00:40 79 136/81 08/31/23 00:33 78 20 97 08/30/23 23:01 36.5 C 97 H 18 132/71 96 08/30/23 22:57 81 O2 Del Method 08/31/23 02:16 08/31/23 01:00 Room Air 08/31/23 00:40 08/31/23 00:33 Room Air 08/30/23 23:01 Room Air 08/30/23 22:57 PG Care Time/CCT Total # of Minutes Spent Total Time Spent with Patient: Total time spent is greater than 50% in coordination of care (as documented) at patient's floor/unit and/or counseling patient: Coding Level of Care Code 08093 INT INP/OBS CARE 3/75MIN Diagnoses Chronic ulcer of sacral region L98.429
--- NOTE | 2023-08-31 03:24 | History & Physical Report ---
Date of Service August 31, 2023 Assessment & Plan (1) Perineal fistula: Plan: 68 y/o male with PMH of chronic sacral ulcer, PAD, above-knee amputation, below- knee amputation, CKD, Hypothyroidism, DM2. Aortic stenosis s/p bioprosthetic valve in 2016, CAD s/ single vessel coronary bypass (2016) and a diverting colostomy bag who presents to the hospital for evaluation of worsening chronic left groin wound. Patient to be admitted for surgical evaluation and IV antibiotics as well as wound care. -Admit to [facility] under observation, no telemetry indication -Does not meet sepsis criteria -Started on daptomycin and Zosyn in the ED, continue, tailor as cultures return -Surgical consultation placed, appreciate recommendations -Wound nurse consulted, appreciate recommendations -Jacinto enriquez ordered -Encourage hospitalist team to get in contact with the patient's colorectal surgeon rather than the on-call provider to see if other recommendations can be made -Blood and wound cultures taken and pending -Diet ordered as it does not seem to be a surgical intervention to be done at this time (2) Wound of left groin: Plan: - As above -Continue use of mupirocin ointment and miconazole powder (3) Chronic kidney disease, stage III (moderate): Plan: - Baseline creatinine of 0.85, renally dose medications when able (4) Coronary arteriosclerosis: Plan: - Continue aspirin and statin (5) Diabetic peripheral neuropathy associated with type 1 diabetes mellitus: Plan: - Patient has home insulin pump, continue (6) Peripheral arterial disease: Plan: -Continue aspirin and Plavix (7) Diabetic nephropathy associated with type 1 diabetes mellitus: Plan: -Renally dose medications and avoid nephrotoxic agents (8) BPH (benign prostatic hyperplasia): Plan: -Continue Flomax (9) Colostomy in place: Plan: -Routine colostomy care Plan Disposition: admit to [facility] for wound management/care and IV antibiotics Diet: DM 1, heart healthy DVT prophylaxis: Lovenox CODE STATUS: Full code History of Present Illness Chief Complaint: Worsening chronic groin wound Primary Care Provider: Jeremias Morton, 68 y/o male with PMH of chronic sacral ulcer, PAD, above-knee amputation, below- knee amputation, CKD, Hypothyroidism, DM2. Aortic stenosis s/p bioprosthetic valve in 2016, CAD s/ single vessel coronary bypass (2016) and a diverting colostomy bag who presents to the hospital for evaluation of worsening chronic left groin wound. In summary, patient has a chronic left groin wound that is tunneling and currently has a Duarte drain in place put in by [facility] colorectal surgery group. He follows up for management regards to his chronic wound, Duarte drain, and fistula that has formed. He was recently admitted to the hospital with surgical consultation from 08/10 to 08/16 and was discharged on oral antibiotics. Patient reports that he took them at home and his wound seems to be getting bigger. He has noticed a new wound opening that was not there previously. He has not noticed any purulent discharge and does not seem to be bleeding, however, he feels the wound openings are increasing in size and number. He initially requested a transfer to [facility] to be seen by the colorectal surgeon, however, they denied this transfer. Patient denies any increase in pain currently. No nausea or vomiting. Eating and drinking without difficulty. No other complaints at this time. ED course: Patient evaluated by provider. Labs are significant forfor normal white blood cell count, ESR of 71, lactate of 3.4 that improved with fluids to 1.8, elevated C-reactive protein of 6.3. CT of the abdomen pelvis demonstrates minimal changes from previous CT. Blood and wound cultures were taken prior to initiation of antibiotics. Patient was started on daptomycin and Zosyn in the ED. Patient was also given a bolus of fluid. The on-call surgical LIZZ was consulted and it was recommended for admission to the hospital service with general surgery consultation for antibiotics and wound care management. Allergies Allergy/AdvReac Type Severity Reaction Status Date / Time No Known Allergies Allergy Unknown Verified 08/30/23 23:19 Home Medications Medication Instructions Recorded Confirmed Type aspirin 81 mg tablet,delayed 81 mg PO QAM 05/04/21 08/30/23 History release (Mohit Low Dose Aspirin) atorvastatin 80 mg tablet (Lipitor) 80 mg PO HS #90 tabs 11/15/21 08/30/23 Rx magnesium oxide 400 mg (241.3 mg 400 mg PO QAM #30 tabs 07/07/22 08/30/23 Rx magnesium) tablet acetaminophen 500 mg tablet 1,000 mg PO Q8 PRN Pain 07/18/22 08/30/23 History (Tylenol Extra Strength) metoprolol tartrate 25 mg tablet 12.5 mg (1/2 x 25 mg) PO BID #90 08/08/22 08/30/23 Rx tabs clopidogrel 75 mg tablet (Plavix) 75 mg PO QAM #30 tabs 08/19/22 08/30/23 Rx insulin aspart U-100 100 unit/mL 0 unit continuous subcutaneous 11/25/22 08/30/23 History subcutaneous solution (Novolog infusion CONTINOUS U-100 Insulin aspart) menthol 0.44 %-zinc oxide 20.6 % 1 applic EXT TID 11/25/22 08/30/23 History topical ointment (Calmoseptine) zinc oxide 16 % topical ointment 1 applic EXT TID 11/25/22 08/30/23 History (Boudreauxs Butt Paste) pantoprazole 40 mg tablet,delayed 40 mg PO DAILY #90 tabs 12/12/22 08/30/23 Rx release (Protonix) Replacement Brakes for Manual #1 ea 05/12/23 08/29/23 Rx Wheelchair mupirocin 2 % topical ointment 1 applic topical Q12H 05/12/23 08/30/23 History tamsulosin 0.4 mg capsule 0.4 mg PO DAILY #90 caps 05/18/23 08/30/23 Rx tramadol 50 mg tablet 50 - 100 mg PO Q6 PRN pain 05/22/23 08/30/23 History cyclobenzaprine 10 mg tablet 10 mg PO Q8H PRN Muscle Spasm #90 06/16/23 08/30/23 Rx tabs Mattress (Air or other) #1 ea 06/19/23 08/29/23 Rx Wheelchair (Manual) (Manual #1 ea 06/19/23 08/29/23 Rx Wheelchair) ferrous sulfate 325 mg (65 mg 325 mg PO BID #60 tabs 06/19/23 08/30/23 Rx iron) tablet,delayed release chlorthalidone 25 mg tablet 25 mg PO QAM #90 tabs 07/03/23 08/30/23 Rx ezetimibe 10 mg tablet 10 mg PO DAILY #30 tabs 07/10/23 08/30/23 Rx potassium chloride 20 mEq 20 meq PO BID 07/12/23 08/30/23 History tablet,extended release folic acid 1 mg tablet 1 mg PO QAM #90 tabs 07/24/23 08/30/23 Rx simethicone 125 mg capsule (Gas-X 125 mg PO DAILY PRN abdominal 07/24/23 08/30/23 Rx Extra Strength) distention #14 caps ondansetron 4 mg disintegrating 4 mg PO Q6H PRN nausea and 07/25/23 08/30/23 Rx tablet vomiting #30 tabs miconazole nitrate 2 % topical 1 applic EXT BID apply to rash on 08/16/23 08/30/23 Rx powder (Desenex) buttocks and groin #85 grams calcitriol 0.25 mcg capsule 0.25 mcg PO QAM #30 caps 08/21/23 08/30/23 Rx (Rocaltrol) trazodone 100 mg tablet 100 mg PO HS #90 tabs 08/28/23 08/30/23 Rx levothyroxine 175 mcg tablet 175 mcg PO DAILYBB 08/30/23 08/30/23 History (Synthroid) Past Med/Surg History Medical History BPH (benign prostatic hyperplasia) Cellulitis of perineum Cellulitis of scrotum Anemia Above knee amputation of left lower extremity Surgical wound, non healing Stage III pressure ulcer 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) Hx MRSA infection 01/2022 (left heel) Type I diabetes mellitus, uncontrolled Candidal diaper rash History of colon polyps History of Clostridium difficile infection s/p treatment (2020) Below-knee amputation of right lower extremity Clostridium difficile colitis DVT prophylaxis Folate deficiency Constipation Anemia COPD (chronic obstructive pulmonary disease) GERD (gastroesophageal reflux disease) Dyslipidemia Hypertension Hypothyroidism Vitamin D deficiency Aortic stenosis s/p porcine valve replacement (2015) + CABG x1 Follows with [facility] cardio CAD (coronary artery disease) s/p CABG x 1 (2015) Surgical History Hx laparoscopic cholecystectomy (07/17/23) Robotic assisted Laparoscopic Cholecystectomy(Not Applicable) - Markus Dawson, DO, FACS Hx of cystoscopy w/stent placement; stent then removed S/P femoral-tibial bypass Below-knee amputation of right lower extremity H/O vascular surgery Right Femoral to Posterior tibial Prosthetic Bypass Graft(Right) History of skin graft Split Thickness Skin Graft of Left Lateral Ankle (11/18/20): LMA#5, atraumatic x1 at [facility] Hx of surgical procedure Left Leg Wound Debridement and Irrigation History of arterial bypass of lower extremity Left femoral to PT composite bypass graft (06/2020) History of carpal tunnel release R/L History of tooth extraction History of tonsillectomy History of myringotomy w/tubes bilat. S/P femoropopliteal bypass surgery Right fem-pop bypass graft (01/19/21): Grade 2 view, MAC 3.0, ETT 8.0 at [facility] History of cardiac cath x2, most recent 2016 > no stents (subsequent CABG with AVR in 2015); [facility] History of umbilical hernia repair S/P insertion of iliac artery stent B/L iliac stent placement (2014) H/O endarterectomy R common femoral (11/2018) History of open reduction and internal fixation (ORIF) procedure LLE () History of colonoscopy History of esophagogastroduodenoscopy (EGD) [place] [place]/O cataract extraction R/L History of ankle surgery LEFT ANKLE +HARDWARE REMOVED History of coronary artery bypass graft CABG x1 + AVR (2015) 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 Left transmetatarsal amputation (11/23/21): LMA# 5.0 at [facility]. No issues noted per post-op anesthesia progress note. HX 1 SX TO REMOVE ALL TOES LEFT FOOT NOVEMBER 2021 Family History Brother Family history of diabetes mellitus Sister Family history of diabetes mellitus Mother Family history of diabetes mellitus Grandmother (Maternal) Family history of diabetes mellitus Uncle Family hx of colon cancer Colorectal cancer Father Family history of esophageal cancer Sister Family history of diabetes mellitus Other No family history of adverse response to anesthesia Denies family history of Ovarian cancer Prostate cancer Myocardial infarction Breast cancer Social History Smoking Status: Former smoker Tobacco Type: Cigarettes Second Hand Exposure: Yes (as a child); Do You Dip or Chew Tobacco: No; Hx Alcohol Use: No Hx Substance Use: No Preferred Language: Bulgarian Communication Ability: Effective Visual Impairment: No Limitations Hearing Ability: Hard of Hearing Insurance Actuary Required: No Beliefs That Will Affect Care: None marital status: Current Living Situation: Other Current Living Situation Comment: friend current occupational status: disabled How many Children do You have: 2 How many Children do You have Comment: family assists with care, also is part of the waiver program so the pt's roommate is able to assist with care through this program Feels Safe at Home: Yes Safety Concerns: Feels Safe At This Time Childhood Exposure to Second-Hand Smoke: Yes Diet: diabetic Diet Comment: Carb Counts. ([id number], roughly), protein drinks caffeine: Yes (coffee, rarely ) during the past year weight has: remained stable Dental Care, Regularly: No Seatbelt Use: always Sunscreen Use: No Gender Identity: Male Assistive Devices: Walker and Wheelchair Review of Systems Review of Systems: All systems reviewed & are unremarkable except as noted in HPI & below Physical Exam Constitutional: WD/WN, vitals as above Eyes: + anicteric sclerae Neck: trachea midline, no thyromegaly Respiratory: normal respiratory effort, lungs clear to auscultation Cardiovascular: RRR, no murmur, no edema Gastrointestinal (Abdomen): Inspection/Auscultation: normal bowel sounds Colostomy bag present with liquid stool w/o blood Musculoskeletal: Head/Neck/Chest: normocephalic and head atraumatic b/l LE amputations noted. Skin: On the L perineum the patient has a large left groin and perineal wound with several pores demonstrating tunneling. There is a [place] drain in place. There is some surrounding erythema to the wound. No katie purulence or bleeding. Neurologic: moves all extremities Psychiatric: A+Ox3, euthymic affect Results & Data Results & Data Vital Signs (Past 12 Hours) Vital Signs Temp Pulse Pulse Resp BP BP Pulse Ox 08/31/23 02:16 73 16 127/72 08/31/23 01:00 77 16 143/94 H 98 08/31/23 00:40 79 136/81 08/31/23 00:33 78 20 97 08/30/23 23:01 36.5 C 97 H 18 132/71 96 08/30/23 22:57 81 O2 Del Method 08/31/23 02:16 08/31/23 01:00 Room Air 08/31/23 00:40 08/31/23 00:33 Room Air 08/30/23 23:01 Room Air 08/30/23 22:57 Supervising Physician Co-Signing Physician Notes Attending addendum: I have physically seen this patient, have supervised the medical residents activities, and agree with the H&P unless as otherwise noted. Assessment and Plan: Perineal fistula/chronic wound left groin with infection- Groin culture from 08/11 growing E. coli and Staph aureus Continue daptomycin IV and Zosyn IV begun in the ED Follow wound cultures and blood cultures, lactic acid 3.4 History of diverging colostomy to help improve healing Consult to general surgery Consult wound care nurse ED attempted to contact colorectal surgery at [facility], however, covering physician did not accept patient Consult with patient's colorectal surgeon tomorrow, today, and discuss overall care and question whether need for transfer CKD stage III- Creatinine 0.81 on admission Follow serially Hyperglycemia in diabetes mellitus- Placed on Accu-Cheks with NovoLog SSI PAD- Continue aspirin and clopidogrel Remaining orders and notations as noted
[2023-08-31] MEDS ORDERED: ONDANSETRON 4 MG OD TAB PO PRN (06:26)
[2023-08-31] MEDS ORDERED: GLUCOSE 10 TAB/TUBE PO PRN (06:26)
[2023-08-31] MEDS ORDERED: DEXTROSE 50% 50 ML SYRINGE IV PRN (06:26)
[2023-08-31] MEDS ORDERED: CYCLOBENZAPRINE HCL 10 MG TAB PO PRN (06:26)
[2023-08-31] MEDS ORDERED: ACETAMINOPHEN 500 MG TAB PO PRN (06:26)
[2023-08-31] MEDS ORDERED: CARBOHYDRATES FOR HYPOGLYCEMIA PO PRN (06:26)
[2023-08-31] MEDS ORDERED: GLUCAGON FOR INJ 1 MG VIAL SQ PRN (06:26)
[2023-08-31] MEDS ORDERED: GLUCOSE 40% GEL 15 GM TUBE PO PRN (06:26)
[2023-08-31] MEDS ORDERED: SIMETHICONE 80 MG CHEW PO PRN (06:35)
[2023-08-31] MEDS: PIPERACILLIN/TAZOBACTAM 4.5 GM in DEXTROSE 5% MINI-B 100 ML IV SCH ×3 (08:17→22:11)
[2023-08-31] MEDS: TAMSULOSIN HCL 0.4 MG CAP PO SCH (08:21)
[2023-08-31] MEDS: EZETIMIBE 10 MG TAB PO SCH (08:22)
[2023-08-31] MEDS: PANTOprazole 40 MG TAB PO SCH (08:22)
[2023-08-31] MEDS: CHLORTHALIDONE 25 MG TAB PO SCH (08:22)
[2023-08-31] MEDS: MAGNESIUM OXIDE 400 MG TAB PO SCH (08:22)
[2023-08-31] MEDS: CLOPIDOGREL BISULFATE 75 MG TAB PO SCH (08:22)
[2023-08-31] MEDS: CALCITRIOL 0.25 MCG CAPSULE PO SCH (08:23)
[2023-08-31] MEDS: ASPIRIN 81 MG ECTAB PO SCH (08:23)
[2023-08-31] MEDS: FERROUS SULFATE 325 MG TAB PO SCH ×2 (08:23→22:09)
[2023-08-31] MEDS: LEVOTHYROXINE SODIUM 175 MCG TABLET PO SCH (08:23)
[2023-08-31] MEDS: METOPROLOL TARTRATE 25 MG TAB PO SCH ×2 (08:24→22:09)
[2023-08-31] MEDS: FOLIC ACID 1 MG TAB PO SCH (08:24)
[2023-08-31] MEDS: BUTT PASTE (ZINC OXIDE 16%) 171 APPLN/57 GM JAR EXT SCH ×3 (08:25→22:11)
[2023-08-31] MEDS: POTASSIUM CHLORIDE CRTAB 20 MEQ TABCR PO SCH ×2 (08:25→22:09)
[2023-08-31] MEDS: MUPIROCIN 2% OINT 22 GM TUBE TOP SCH ×2 (08:25→22:10)
[2023-08-31] MEDS: ENOXAPARIN INJ 40 MG/0.4 ML SYR SQ SCH (08:26)
[2023-08-31] MEDS: MICONAZOLE NITRATE POWDER 85 GM EXT SCH ×2 (08:26→22:10)
[2023-08-31] MEDS: INSULIN, Rapid-Acting PUMP SC SCH ×4 (09:21→23:18)
--- NOTE | 2023-08-31 18:12 | History & Physical Bridge Note ---
Date of Service August 31, 2023 History & Physical Bridge Note I have examined the patient, reviewed the History & Physical and in the interval since the performance of the History & Physical I have noted the following changes of clinical significance: Pt reports he came in because he was having a new hole forming in his groin and was worried he was forming a new fistula. No fevers, no leukocytosis. Has some pain with sitting. Reviewed Surgeon's notes today and no indication for any urgent surgery, can f/u with his colorectal surgeon as an outpt. Plan to add tramadol prn pain as he takes this at home Plan to call Dr. Henry tomorrow but doubt there will be a need for any sort of urgent transfer. Plan for discharge tomorrow on po abx.
[2023-08-31] MEDS ORDERED: ATORVASTATIN 40 MG TAB PO SCH (21:00)
--- NOTE | 2023-08-31 21:25 | Billing Data ---
Date of Service August 31, 2023 Coding Level of Care Code 02044 INT INP/OBS CARE
[2023-08-31] MEDS: traZODone HCL 100 MG TAB PO SCH (22:10)
[2023-08-31] MEDS: traMADol HCL 50 MG TABLET PO PRN (22:35)
[2023-09-01] MEDS: DAPTOMYCIN IV SCH (01:54)
[2023-09-01] MEDS: PIPERACILLIN/TAZOBACTAM 4.5 GM in DEXTROSE 5% MINI-B 100 ML IV SCH ×3 (05:35→22:56)
[2023-09-01] MEDS: LEVOTHYROXINE SODIUM 175 MCG TABLET PO SCH (05:35)
[2023-09-01] MEDS: MAGNESIUM OXIDE 400 MG TAB PO SCH (08:32)
[2023-09-01] MEDS: CLOPIDOGREL BISULFATE 75 MG TAB PO SCH (08:32)
[2023-09-01] MEDS: EZETIMIBE 10 MG TAB PO SCH (08:32)
[2023-09-01] MEDS: ASPIRIN 81 MG ECTAB PO SCH (08:33)
[2023-09-01] MEDS: TAMSULOSIN HCL 0.4 MG CAP PO SCH (08:33)
[2023-09-01] MEDS: PANTOprazole 40 MG TAB PO SCH (08:33)
[2023-09-01] MEDS: CHLORTHALIDONE 25 MG TAB PO SCH (08:33)
[2023-09-01] MEDS: POTASSIUM CHLORIDE CRTAB 20 MEQ TABCR PO SCH ×2 (08:34→20:59)
[2023-09-01] MEDS: METOPROLOL TARTRATE 25 MG TAB PO SCH ×2 (08:34→21:00)
[2023-09-01] MEDS: CALCITRIOL 0.25 MCG CAPSULE PO SCH (08:35)
[2023-09-01] MEDS: ENOXAPARIN INJ 40 MG/0.4 ML SYR SQ SCH (08:35)
[2023-09-01] MEDS: FOLIC ACID 1 MG TAB PO SCH (08:35)
[2023-09-01] MEDS: FERROUS SULFATE 325 MG TAB PO SCH ×2 (08:35→20:59)
[2023-09-01] MEDS: MUPIROCIN 2% OINT 22 GM TUBE TOP SCH ×2 (08:38→21:02)
[2023-09-01] MEDS: BUTT PASTE (ZINC OXIDE 16%) 171 APPLN/57 GM JAR EXT SCH ×3 (08:38→21:03)
[2023-09-01] MEDS: MICONAZOLE NITRATE POWDER 85 GM EXT SCH ×2 (08:38→22:50)
[2023-09-01] MEDS: INSULIN, Rapid-Acting PUMP SC SCH ×4 (08:41→21:39)
[2023-09-01 09:34] LABS: Basophils # (auto) 0.08 K/uL (0.00-0.20); Basophils % (auto) 0.8 %; Eosinophils # (auto) 0.78 K/uL (0.00-0.50); Eosinophils % (auto) 8.1 %; Hematocrit (blood only) 36.7 % (42.0-52.0); Hemoglobin 12.2 g/dl (14.0-18.0); Immature Granulocytes # (auto) 0.03 K/uL (0.01-0.20); Immature Granulocytes % (auto) 0.3 %; Lymphocytes # (auto) 1.43 K/uL (1.20-3.40); Lymphocytes % (auto) 14.8 %; Mean Corpuscular Hemoglobin 27.3 pg (25.0-34.0); Mean Corpuscular Hgb Conc 33.2 g/dL (32.0-36.0); Mean Corpuscular Volume 82.1 fL (80.0-100.0); Mean Platelet Volume 9.9 fL (9.4-12.4); Monocytes # (auto) 1.04 K/uL (0.11-0.59); Monocytes % (auto) 10.7 %; Neutrophils # (auto) 6.32 K/uL (1.40-6.50); Neutrophils % (auto) 65.3 %; Platelet Count 280 K/uL (130-400); RDW Coefficient of Variation 14.6 % (11.5-14.5); RDW Standard Deviation 44.1 fL (36.4-46.3); Red Blood Count 4.47 M/uL (4.70-6.10); White Blood Count 9.68 K/ul (4.8-10.8)
[2023-09-01 09:52] LABS: BUN Creatinine Ratio 11.1 (10-20); Calcium 8.3 mg/dl (8.6-10.3); Creatinine Clr Calc Pharmacy 111.6 ml/min; Est GFR (Non-African American) 102.7 ml/min
[2023-09-01] MEDS ORDERED: POTASSIUM CHLORIDE CRTAB 20 MEQ TABCR PO STA (10:23)
--- NOTE | 2023-09-01 12:14 | Hospitalist Progress Note ---
Date of Service September 01, 2023 Assessment & Plan (1) Perineal fistula: Plan: 68 y/o male with PMH of chronic sacral ulcer, PAD, above-knee amputation, below- knee amputation, CKD, Hypothyroidism, DM2. Aortic stenosis s/p bioprosthetic valve in 2016, CAD s/ single vessel coronary bypass (2016) and a diverting colostomy bag who presents to the hospital for evaluation of worsening chronic left groin wound. Patient admitted for surgical evaluation and IV antibiotics as well as wound care. -Does not meet sepsis criteria, rmains afebrile, no leukocytosis, tachycardia etc. -Colorectal surgery contacted on evening of admission and declined transfer as not urgent indication his colorectal surgeon Dr. Vides is out on vacation through 09/07, but pt does have an outpt appt with him scheduled for Sep 13 Wound cx now with probable Pseudomonas species, sensitivities pending but previous Pseudomonas was sensitive to FQs BCxs remain NGTD Wound continues to drain comious pus but no abscess on CT and SUrgery here said stable for discharge, no urgent surgical indication -continue local wound care -continue daptomycin and Zosyn, follow cultures -Jacinto cushion ordered -pain control with tramadol and tylenol prn (2) Wound of left groin: Plan: - As above -also use miconazole powder on buttocks and groin for fungal skin infection (3) Chronic kidney disease, stage III (moderate): Plan: Cr at baseline Avoid nephrotoxic medications (4) Coronary arteriosclerosis: Plan: - Continue aspirin, plavix, metoprolol, and statin (5) Diabetic peripheral neuropathy associated with type 1 diabetes mellitus: Plan: - Patient has home insulin pump, continue (6) Peripheral arterial disease: Plan: Chronic. s/p bilateral lower extremities amputation continue aspirin, plavix, and statin (7) Diabetic nephropathy associated with type 1 diabetes mellitus: Plan: -Renally dose medications and avoid nephrotoxic agents (8) BPH (benign prostatic hyperplasia): Plan: -Continue Flomax (9) Colostomy in place: Plan: -Routine colostomy care (10) Aortic stenosis: Plan: s/p bioprosthetic valve in 2016 (11) Hypokalemia: Plan: Continue home dose 20 meq BID and add an extra 40meq po x 1 today 2/2 chlorthalidone use GERD-continue PPI Hypothyroidism-continue LT4 Plan DVT proph-Lovenox Dispo-continued stay, awaiting cultures, dc to home on po vs IV abx once cxs available Admission and Anticipated Discharge Date Admission Date: August 31, 2023 Subjective Pt having ongoing drainage from groin wound and with pain controlled. Family at bedside very upset that he is not being urgently transferred to [facility] for surgery. Discussed with them that while this is a terrible problem, it is chronic with a superficial infection, no abscess, no sepsis, and can be managed with abx while awaiting follow up with his colorectal surgeon. I did call Dr. Vides's office and unfortunately he is out of the office on vacation through 09/07 and has no sooner availability at the [place] location for follow up prior to the already scheduled Sep 13 appt. Family concerned that pt needs 24/ care but he declines placement in a NH/SNF. He does have a paid caregiver that lives with him but she is only technically on duty during the daytime. Occasionally she leaves for the night and he is alone. Physical Exam Constitutional: WD/WN, vitals as above Eyes: + anicteric sclerae Neck: trachea midline, no thyromegaly Respiratory: normal respiratory effort, lungs clear to auscultation Cardiovascular: RRR, no murmur, no edema Gastrointestinal (Abdomen): Inspection/Auscultation: normal bowel sounds Musculoskeletal: Extremities: + extremities abnormal to inspection (bilat amputations) Skin: Left groin with multiple open wounds draining copious purulent fluid tinged with blood, surrounding erythema, michael drain in place in perianal region on left Buttocks with large patches of dry skin with powder in place Psychiatric: A+Ox3, euthymic affect Results & Data Results & Data Vital Signs (Past 12 Hours) Vital Signs Temp Pulse Resp BP Pulse Ox O2 Del Method 09/01/23 07:17 36.8 C 72 16 139/73 95 Room Air Laboratory Results CBC, BMP, Wound cxs, BCxs reviewed PG Care Time/CCT Total # of Minutes Spent Total Time Spent with Patient: Total time spent is greater than 50% in coordination of care (as documented) at patient's floor/unit and/or counseling patient: Coding Level of Care Code 52331 SUB INP/OBS CARE 2/35MIN Diagnoses Perineal fistula N36.0 Wound of left groin S31.109A Encounter type: initial encounter Chronic kidney disease, stage III (moderate) N18.30 Coronary arteriosclerosis I25.10 Diabetic peripheral neuropathy associated with type 1 diabetes mellitus E10.42 Peripheral arterial disease I73.9 Diabetic nephropathy associated with type 1 diabetes mellitus E10.21 BPH (benign prostatic hyperplasia) N40.[address] Z93.3 Aortic stenosis I35.0 Hypokalemia E87.6 (2) Wound of left groin Encounter type: initial encounter Qualified Code(s): S31.109A - Unspecified open wound of abdominal wall, unspecified quadrant without penetration into peritoneal cavity, initial encounter
[2023-09-01] MEDS: traMADol HCL 50 MG TABLET PO PRN (16:03)
[2023-09-01] MEDS: traZODone HCL 100 MG TAB PO SCH (21:00)
--- NOTE | 2023-09-01 21:55 | Electrocardiogram Report ---
Test Reason : Blood Pressure : / mmHG Vent. Rate : 083 BPM Atrial Rate : 083 BPM P-R Int : 184 ms QRS Dur : 158 ms QT Int : 440 ms P-R-T Axes : 060 077 050 degrees QTc Int : 517 ms Sinus rhythm with Premature atrial complexes Right bundle branch block Possible Inferior infarct (cited on or before 12-JUL-2023) Abnormal ECG When compared with ECG of 12-JUL-2023 07:48, Premature atrial complexes are now Present T wave inversion no longer evident in Inferior leads T wave inversion more evident in Anterior leads Confirmed by Anish Dickerson ([id number]) on 09/01/2023 9:55:47 PM Referred By: REFERRED SELF Confirmed By:Anish Dickerson
[2023-09-02] MEDS: DAPTOMYCIN IV SCH (01:13)
[2023-09-02] MEDS: PIPERACILLIN/TAZOBACTAM 4.5 GM in DEXTROSE 5% MINI-B 100 ML IV SCH ×3 (06:13→22:20)
[2023-09-02] MEDS: LEVOTHYROXINE SODIUM 175 MCG TABLET PO SCH (06:13)
[2023-09-02] MEDS: ENOXAPARIN INJ 40 MG/0.4 ML SYR SQ SCH (08:17)
[2023-09-02] MEDS: FOLIC ACID 1 MG TAB PO SCH (08:17)
[2023-09-02] MEDS: ASPIRIN 81 MG ECTAB PO SCH (08:18)
[2023-09-02] MEDS: CALCITRIOL 0.25 MCG CAPSULE PO SCH (08:18)
[2023-09-02] MEDS: TAMSULOSIN HCL 0.4 MG CAP PO SCH (08:18)
[2023-09-02] MEDS: METOPROLOL TARTRATE 25 MG TAB PO SCH ×2 (08:18→20:17)
[2023-09-02] MEDS: CLOPIDOGREL BISULFATE 75 MG TAB PO SCH (08:18)
[2023-09-02] MEDS: MAGNESIUM OXIDE 400 MG TAB PO SCH ×2 (08:18→20:21)
[2023-09-02] MEDS: PANTOprazole 40 MG TAB PO SCH (08:18)
[2023-09-02] MEDS: EZETIMIBE 10 MG TAB PO SCH (08:19)
[2023-09-02] MEDS: POTASSIUM CHLORIDE CRTAB 20 MEQ TABCR PO SCH ×2 (08:19→20:20)
[2023-09-02] MEDS: CHLORTHALIDONE 25 MG TAB PO SCH (08:19)
[2023-09-02] MEDS: FERROUS SULFATE 325 MG TAB PO SCH ×2 (08:19→20:17)
[2023-09-02] MEDS: MUPIROCIN 2% OINT 22 GM TUBE TOP SCH ×2 (08:22→20:19)
[2023-09-02] MEDS: BUTT PASTE (ZINC OXIDE 16%) 171 APPLN/57 GM JAR EXT SCH ×3 (08:23→20:19)
[2023-09-02] MEDS: MICONAZOLE NITRATE POWDER 85 GM EXT SCH ×2 (08:23→20:18)
[2023-09-02] MEDS: INSULIN, Rapid-Acting PUMP SC SCH ×4 (10:34→20:23)
[2023-09-02 12:41] LABS: Basophils # (auto) 0.09 K/uL (0.00-0.20); Basophils % (auto) 0.8 %; Eosinophils # (auto) 1.08 K/uL (0.00-0.50); Eosinophils % (auto) 9.6 %; Hematocrit (blood only) 38.6 % (42.0-52.0); Hemoglobin 12.9 g/dl (14.0-18.0); Immature Granulocytes # (auto) 0.05 K/uL (0.01-0.20); Immature Granulocytes % (auto) 0.4 %; Lymphocytes # (auto) 2.07 K/uL (1.20-3.40); Lymphocytes % (auto) 18.5 %; Mean Corpuscular Hemoglobin 27.5 pg (25.0-34.0); Mean Corpuscular Hgb Conc 33.4 g/dL (32.0-36.0); Mean Corpuscular Volume 82.3 fL (80.0-100.0); Mean Platelet Volume 9.7 fL (9.4-12.4); Monocytes # (auto) 0.92 K/uL (0.11-0.59); Monocytes % (auto) 8.2 %; Neutrophils # (auto) 6.99 K/uL (1.40-6.50); Neutrophils % (auto) 62.5 %; Platelet Count 333 K/uL (130-400); RDW Coefficient of Variation 14.9 % (11.5-14.5); RDW Standard Deviation 44.8 fL (36.4-46.3); Red Blood Count 4.69 M/uL (4.70-6.10)
[2023-09-02 13:03] LABS: BUN Creatinine Ratio 11.6 (10-20); Creatinine Clr Calc Pharmacy 101.9 ml/min; Est GFR (African American) 114.7 ml/min; Est GFR (Non-African American) 98.9 ml/min; Magnesium 1.6 mg/dl (1.7-2.4); Potassium 3.4 mmol/L (3.5-5.1)
[2023-09-02] MEDS ORDERED: DAPTOmycin 425 MG in SYRINGE 0 ML IV SCH (15:45)
--- NOTE | 2023-09-02 15:45 | Hospitalist Progress Note ---
Date of Service September 02, 2023 Assessment & Plan (1) Perineal fistula: Plan: 68 y/o male with PMH of chronic sacral ulcer, PAD, above-knee amputation, below- knee amputation, CKD, Hypothyroidism, DM2. Aortic stenosis s/p bioprosthetic valve in 2016, CAD s/ single vessel coronary bypass (2016) and a diverting colostomy bag who presents to the hospital for evaluation of worsening chronic left groin wound. Patient admitted for surgical evaluation and IV antibiotics as well as wound care. Does not meet sepsis criteria, remains afebrile, now with mild leukocytosis, but no tachycardia etc. Colorectal surgery contacted on evening of admission and declined transfer as not urgent indication His colorectal surgeon Dr. Vides is out on vacation through 09/07, but pt does have an outpt appt with him scheduled for Sep 13 Wound cx with probable Pseudomonas species, sensitivities pending but previous Pseudomonas was sensitive to FQs BCxs remain NGTD Wound continues to drain copious pus but no abscess on CT Surgery here said stable for discharge, no urgent surgical indication, but awaiting culture results -continue local wound care -continue daptomycin and Zosyn, follow cultures-hopeful that will be sensitive to po FQs, but if not, then will need IV abx set up after -Waffle cushion ordered -pain control with tramadol and tylenol prn -follow CBC, BMP (2) Wound of left groin: Plan: - As above -also use miconazole powder on buttocks and groin for fungal skin infection (3) Chronic kidney disease, stage III (moderate): Plan: Cr at baseline Avoid nephrotoxic medications (4) Coronary arteriosclerosis: Plan: - Continue aspirin, plavix, metoprolol, and statin (5) Diabetic peripheral neuropathy associated with type 1 diabetes mellitus: Plan: - Patient has home insulin pump, continue (6) Peripheral arterial disease: Plan: Chronic. s/p bilateral lower extremities amputation continue aspirin, plavix, and statin (7) Diabetic nephropathy associated with type 1 diabetes mellitus: Plan: -Renally dose medications and avoid nephrotoxic agents (8) BPH (benign prostatic hyperplasia): Plan: -Continue Flomax (9) Colostomy in place: Plan: -Routine colostomy care (10) Aortic stenosis: Plan: s/p bioprosthetic valve in 2016 (11) Hypokalemia: Plan: Persists, along with hypomagnesemia 2/2 chlorthalidone use Continue home dose KCl 20 meq BID Increase magnesium to 400mg po bid and give 2 grams IV mag today GERD-continue PPI Hypothyroidism-continue LT4 Plan DVT proph-Lovenox Dispo-continued stay, awaiting cultures, dc to home on po vs IV abx once cxs available Admission and Anticipated Discharge Date Admission Date: September 02, 2023 Subjective Feeling ok today, pain in groin controlled. No new concerns Physical Exam Constitutional: WD/WN, vitals as above Eyes: + anicteric sclerae Neck: trachea midline, no thyromegaly Respiratory: normal respiratory effort, lungs clear to auscultation Cardiovascular: RRR, no murmur, no edema Gastrointestinal (Abdomen): Inspection/Auscultation: normal bowel sounds Musculoskeletal: Head/Neck/Chest: normocephalic and head atraumatic Extremities: + extremities abnormal to inspection (bilat amputations) Skin: groin wound with purulent bloody drainage Psychiatric: A+Ox3, euthymic affect Results & Data Results & Data Vital Signs (Past 12 Hours) Vital Signs Temp Pulse Resp BP Pulse Ox O2 Del Method 09/02/23 14:50 36.6 C 72 16 121/81 96 Room Air 09/02/23 07:40 36.6 C 77 16 121/61 94 Room Air Laboratory Results CBC, BMP, magnesium, wound and blood cultures reviewed PG Care Time/CCT Total # of Minutes Spent Total Time Spent with Patient: Total time spent is greater than 50% in coordination of care (as documented) at patient's floor/unit and/or counseling patient: Coding Level of Care Code 17507 SUB INP/OBS CARE 2/35MIN Diagnoses Perineal fistula N36.0 Wound of left groin S31.109A Encounter type: initial encounter Chronic kidney disease, stage III (moderate) N18.30 Coronary arteriosclerosis I25.10 Diabetic peripheral neuropathy associated with type 1 diabetes mellitus E10.42 Peripheral arterial disease I73.9 Diabetic nephropathy associated with type 1 diabetes mellitus E10.21 BPH (benign prostatic hyperplasia) N40.[address] Z93.3 Aortic stenosis I35.0 Hypokalemia E87.6 (2) Wound of left groin Encounter type: initial encounter Qualified Code(s): S31.109A - Unspecified open wound of abdominal wall, unspecified quadrant without penetration into peritoneal cavity, initial encounter
[2023-09-02] MEDS: MAGNESIUM SULFATE / D5W 1 GM/100 ML BAG IV SCH ×2 (18:16→20:16)
[2023-09-02] MEDS: traZODone HCL 100 MG TAB PO SCH (20:22)
[2023-09-03] MEDS ORDERED: DAPTOMYCIN IV SCH (01:00)
[2023-09-03] MEDS ORDERED: DAPTOmycin 425 MG in SYRINGE 0 ML IV SCH (01:00)
[2023-09-03] MEDS: LEVOTHYROXINE SODIUM 175 MCG TABLET PO SCH (05:45)
[2023-09-03] MEDS: PIPERACILLIN/TAZOBACTAM 4.5 GM in DEXTROSE 5% MINI-B 100 ML IV SCH ×2 (05:46→14:02)
[2023-09-03] MEDS: FOLIC ACID 1 MG TAB PO SCH (08:25)
[2023-09-03] MEDS: INSULIN, Rapid-Acting PUMP SC SCH ×2 (08:25→12:42)
[2023-09-03] MEDS: TAMSULOSIN HCL 0.4 MG CAP PO SCH (08:25)
[2023-09-03] MEDS: ENOXAPARIN INJ 40 MG/0.4 ML SYR SQ SCH (08:25)
[2023-09-03] MEDS: EZETIMIBE 10 MG TAB PO SCH (08:26)
[2023-09-03] MEDS: POTASSIUM CHLORIDE CRTAB 20 MEQ TABCR PO SCH (08:26)
[2023-09-03] MEDS: METOPROLOL TARTRATE 25 MG TAB PO SCH (08:26)
[2023-09-03] MEDS: CLOPIDOGREL BISULFATE 75 MG TAB PO SCH (08:26)
[2023-09-03] MEDS: ASPIRIN 81 MG ECTAB PO SCH (08:26)
[2023-09-03] MEDS: CALCITRIOL 0.25 MCG CAPSULE PO SCH (08:27)
[2023-09-03] MEDS: CHLORTHALIDONE 25 MG TAB PO SCH (08:27)
[2023-09-03] MEDS: FERROUS SULFATE 325 MG TAB PO SCH (08:27)
[2023-09-03] MEDS: MICONAZOLE NITRATE POWDER 85 GM EXT SCH (08:29)
[2023-09-03] MEDS: MUPIROCIN 2% OINT 22 GM TUBE TOP SCH (08:29)
[2023-09-03] MEDS: MAGNESIUM OXIDE 400 MG TAB PO SCH (08:29)
[2023-09-03] MEDS: PANTOprazole 40 MG TAB PO SCH (08:29)
[2023-09-03] MEDS: BUTT PASTE (ZINC OXIDE 16%) 171 APPLN/57 GM JAR EXT SCH ×2 (08:30→14:03)
[2023-09-03] MEDS: traMADol HCL 50 MG TABLET PO PRN (08:34)
[2023-09-03 09:09] LABS: Basophils # (auto) 0.07 K/uL (0.00-0.20); Basophils % (auto) 0.6 %; Eosinophils # (auto) 0.95 K/uL (0.00-0.50); Eosinophils % (auto) 8.1 %; Hematocrit (blood only) 38.6 % (42.0-52.0); Hemoglobin 12.4 g/dl (14.0-18.0); Immature Granulocytes # (auto) 0.06 K/uL (0.01-0.20); Immature Granulocytes % (auto) 0.5 %; Lymphocytes % (auto) 16.3 %; Mean Corpuscular Hemoglobin 27.2 pg (25.0-34.0); Mean Corpuscular Hgb Conc 32.1 g/dL (32.0-36.0); Mean Corpuscular Volume 84.6 fL (80.0-100.0); Mean Platelet Volume 9.7 fL (9.4-12.4); Monocytes # (auto) 0.77 K/uL (0.11-0.59); Monocytes % (auto) 6.6 %; Neutrophils # (auto) 7.91 K/uL (1.40-6.50); Neutrophils % (auto) 67.9 %; Platelet Count 310 K/uL (130-400); RDW Coefficient of Variation 14.8 % (11.5-14.5); RDW Standard Deviation 45.9 fL (36.4-46.3); Red Blood Count 4.56 M/uL (4.70-6.10); White Blood Count 11.66 K/ul (4.8-10.8)
[2023-09-03 09:25] LABS: BUN Creatinine Ratio 10.4 (10-20); Calcium 8.8 mg/dl (8.6-10.3); Creatinine Clr Calc Pharmacy 91.3 ml/min; Est GFR (African American) 109.6 ml/min; Est GFR (Non-African American) 94.6 ml/min; Magnesium 1.7 mg/dl (1.7-2.4); Potassium 3.3 mmol/L (3.5-5.1)
[2023-09-03 12:33] LABS: C Reactive Protein 2.88 mg/dl (0-0.5)
--- NOTE | 2023-09-03 15:52 | Discharge Summary ---
Date of Service September 03, 2023 Admission HPI Per Admitting Provider 68 y/o male with PMH of chronic sacral ulcer, PAD, above-knee amputation, below- knee amputation, CKD, Hypothyroidism, DM2. Aortic stenosis s/p bioprosthetic valve in 2016, CAD s/ single vessel coronary bypass (2016) and a diverting colostomy bag who presents to the hospital for evaluation of worsening chronic left groin wound. In summary, patient has a chronic left groin wound that is tunneling and currently has a [place] drain in place put in by [facility] colorectal surgery group. He follows up for management regards to his chronic wound, [place] drain, and fistula that has formed. He was recently admitted to the hospital with surgical consultation from 08/10 to 08/16 and was discharged on oral antibiotics. Patient reports that he took them at home and his wound seems to be getting bigger. He has noticed a new wound opening that was not there previously. He has not noticed any purulent discharge and does not seem to be bleeding, however, he feels the wound openings are increasing in size and num sadie. He initially requested a transfer to [facility] to be seen by the colorectal surgeon, however, they denied this transfer. Patient denies any increase in pain currently. No nausea or vomiting. Eating and drinking without difficulty. No other complaints at this time. ED course: Patient evaluated by provider. Labs are significant forfor normal white blood cell count, ESR of 71, lactate of 3.4 that improved with fluids to 1.8, elevated C-reactive protein of 6.3. CT of the abdomen pelvis demonstrates minimal changes from previous CT. Blood and wound cultures were taken prior to initiation of antibiotics. Patient was started on daptomycin and Zosyn in the ED. Patient was also given a bolus of fluid. The on-call surgical LIZZ was consulted and it was recommended for admission to the hospital service with general surgery consultation for antibiotics and wound care management. Discharge Data Allergies Allergy/AdvReac Type Severity Reaction Status Date / Time No Known Allergies Allergy Unknown Verified 08/30/23 23:19 Consultations 08/31/23 02:21 ED Decision to Admit Stat 08/31/23 06:26 Consult General Surgery Routine Ordered Studies 08/30/23 23:52 CT abd pelvis IV con only Stat Hospital Course (1) Perineal fistula: 68 y/o male with PMH of chronic sacral ulcer, PAD, above-knee amputation, below- knee amputation, CKD, Hypothyroidism, DM2. Aortic stenosis s/p bioprosthetic valve in 2016, CAD s/ single vessel coronary bypass (2016) and a diverting colostomy bag who presents to the hospital for evaluation of worsening chronic left groin wound. Patient admitted for surgical evaluation and IV antibiotics as well as wound care. Does not meet sepsis criteria, remains afebrile, now with mild leukocytosis, but no tachycardia etc. Colorectal surgery contacted on evening of admission and declined transfer as not urgent indication His colorectal surgeon Dr. Vides is out on vacation through 09/07, but pt does have an outpt appt with him scheduled for Sep 13 Wound cx with probable Pseudomonas species, sensitivities pending but previous Pseudomonas was sensitive to FQs BCxs remain NGTD Wound continues to drain copious pus but no abscess on CT Surgery here said stable for discharge, no urgent surgical indication, but awaiting culture results -continue local wound care -continue daptomycin and Zosyn, follow cultures-hopeful that will be sensitive to po FQs, but if not, then will need IV abx set up after -[facility] cushion ordered -pain control with tramadol and tylenol prn -follow CBC, BMP (2) Wound of left groin: - As above -also use miconazole powder on buttocks and groin for fungal skin infection (3) Chronic kidney disease, stage III (moderate): Cr at baseline Avoid nephrotoxic medications (4) Coronary arteriosclerosis: - Continue aspirin, plavix, metoprolol, and statin (5) Diabetic peripheral neuropathy associated with type 1 diabetes mellitus: - Patient has home insulin pump, continue (6) Peripheral arterial disease: Chronic. s/p bilateral lower extremities amputation continue aspirin, plavix, and statin (7) Diabetic nephropathy associated with type 1 diabetes mellitus: -Renally dose medications and avoid nephrotoxic agents (8) BPH (benign prostatic hyperplasia): -Continue Flomax (9) Colostomy in place: -Routine colostomy care (10) Aortic stenosis: s/p bioprosthetic valve in 2016 (11) Hypokalemia: Persists, along with hypomagnesemia 2/2 chlorthalidone use Continue home dose KCl 20 meq BID Increase magnesium to 400mg po bid and give 2 grams IV mag today GERD-continue PPI Hypothyroidism-continue LT4 Plan DVT proph-Lovenox Dispo-continued stay, awaiting cultures, dc to home on po vs IV abx once cxs available Discharge Plan Discharge Items Patient Disposition: Home - Home Health Services Reason For Visit: WORSENING GROIN WOUND Discharge Diagnosis: Groin cellulitis Activity: Resume your previous activity Non-emergency contact: Primary Care Provider Call non-emergency contact if: you have any medication questions and your symptoms worsen Follow-up/Referrals: Jeremias Morton, [Primary Care Provider] - Diet: Carb Count or DM1 and Heart Healthy Addtl Attending Provider Instructions: You were admitted to [facility] from August 31 to 2022 due to ongoing groin cellulitis. This was initially treated with Zosyn and daptomycin with improvement in your inflammatory markers and appearance. Culture grew Pseudomonas aeruginosa which was sensitive to ciprofloxacin. Please continue antibiotics for further 10 days until follow-up with your colorectal surgeon please continue this for 10 further days. Please continue miconazole or nystatin powder to reduce fungal infection of the skin. Pending Studies at Discharge: No Stand-Alone Forms: My [facility], Smoking Cessation Medications and DC Order Prescriptions: New ciprofloxacin HCl 250 mg Tablet 750 mg PO BID 10 Days Qty: 60 0RF Continued atorvastatin [Lipitor] 80 mg tablet 80 mg PO HS Qty: 90 3RF metoprolol tartrate 25 mg tablet 12.5 mg PO BID Qty: 90 3RF clopidogrel [Plavix] 75 mg tablet 75 mg PO QAM Qty: 30 5RF (DME) Replacement Brakes for Manual Wheelchair See Rx Instructions .Route .MEDSUPPLY Qty: 1 0RF Rx Instructions: As directed tamsulosin 0.4 mg capsule 0.4 mg PO DAILY Qty: 90 3RF ferrous sulfate 325 mg (65 mg iron) tablet,delayed release (DR/EC) 325 mg PO BID Qty: 60 5RF (DME) Manual Wheelchair Device See Rx Instructions .Route Qty: 1 0RF Rx Instructions: wheel chair repair (DME) Mattress (Air or other) Misc See Rx Instructions .Route Qty: 1 0RF Rx Instructions: Alternating pressure mattress, use daily chlorthalidone 25 mg tablet 25 mg PO QAM Qty: 90 3RF ezetimibe 10 mg tablet 10 mg PO DAILY Qty: 30 2RF folic acid 1 mg tablet 1 mg PO QAM Qty: 90 3RF Patient Comments: PT CURRENLTY NOT TAKING/WAITING FOR PHARMACY ondansetron 4 mg tablet,disintegrating 4 mg PO Q6H PRN (Reason: nausea and vomiting) Qty: 30 3RF calcitriol [Rocaltrol] 0.25 mcg capsule 0.25 mcg PO QAM Qty: 30 5RF trazodone 100 mg tablet 100 mg PO HS Qty: 90 3RF cyclobenzaprine 10 mg tablet 10 mg PO Q8H PRN (Reason: Muscle Spasm) Qty: 90 3RF simethicone [Gas-X Extra Strength] 125 mg capsule 125 mg PO DAILY PRN (Reason: abdominal distention) Qty: 14 0RF mupirocin 2 % ointment 1 applic topical Q12H Rx Instructions: Apply to l. scrotum area acetaminophen [Tylenol Extra Strength] 500 mg tablet 1,000 mg PO Q8 PRN (Reason: Pain) insulin aspart U-100 [Novolog U-100 Insulin aspart] 100 unit/mL solution 0 unit continuous subcutaneous infusion CONTINOUS Rx Instructions: PT UNSURE OF BASAL RATE/DOSE VARIES DEPENDING ON CARB INTAKE. Pt unsure of the max units, insulin pump Boudrohitauxs Butt Paste 16 % ointment 1 applic EXT TID menthol-zinc oxide [Calmoseptine] 0.44-20.6 % ointment 1 applic EXT TID pantoprazole [Protonix] 40 mg tablet,delayed release (DR/EC) 40 mg PO DAILY Qty: 90 3RF miconazole nitrate [Desenex] 2 % Powder 1 applic EXT BID Qty: 85 0RF levothyroxine [Synthroid] 175 mcg tablet 175 mcg PO DAILYBB Rx Instructions: TAKES AT 0200 IN THE MORNING. aspirin [Mohit Low Dose Aspirin] 81 mg tablet,delayed release (DR/EC) 81 mg PO QAM tramadol 50 mg tablet 50 - 100 mg PO Q6 PRN (Reason: pain) potassium chloride 20 mEq tablet extended release 20 meq PO BID Changed magnesium oxide 400 mg (241.3 mg magnesium) Tablet 400 mg PO BID Qty: 30 0RF Discharge Orders: Discharge Order (Routine); Ordered 09/03/23 Ordered By: Isaac Carrillo Admission Data Admit Date/Time: 09/02/23 11:58 Attending Provider: Isaac Carrillo Admit Provider: Cam Rapp Primary Care Provider: Jeremias Morton Other Providers: Patrikc Cohen; Fany Pagan; Jesus Hill; Fuentes Taylor; Prince Valadez; Markus Dawson; Aisha Chavez; Lyndon Shankar; Ad Gomez; Shea Thomas; Fahad Tomlinson; [facility] Other Interventions: Discharge Summary Assessment (RN) Last Done: 09/03/23 15:36 Coding Diagnoses Perineal fistula N36.0 Wound of left groin S31.109A Encounter type: initial encounter Chronic kidney disease, stage III (moderate) N18.30 Coronary arteriosclerosis I25.10 Diabetic peripheral neuropathy associated with type 1 diabetes mellitus E10.42 Peripheral arterial disease I73.9 Diabetic nephropathy associated with type 1 diabetes mellitus E10.21 BPH (benign prostatic hyperplasia) N40.[address] Z93.3 Aortic stenosis I35.0 Hypokalemia E87.6
[2023-09-03] MEDS ORDERED: CIPROFLOXACIN 250 MG TAB PO SCH ×2 (21:00)
[2023-09-03] MEDS ORDERED: CIPROFLOXACIN 500 MG TAB PO SCH (21:00)
== END 2023-09-03 16:05 | disposition home health service (06) ==
LOC: 3W 22:30 → ED 22:30 → SUATTDRO 08-31 04:18 → 3W 08-31 06:02 → SUATTDRO 09-02 11:58

== ENCOUNTER 2025-03-31 16:12 | Inpatient (IN) ==
--- NOTE | 2025-03-31 16:25 | Emergency Department Note ---
Impression & Plan Postprocedural wound infection Admission ED Provider Note HPI: History obtained from patient. 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 Patient had revision of his left sided AKA performed with Dr. Soto on 02/14/2025. The patient states he has noted over the past week or so that the wound seems to be more red and swollen. On arrival here to the ED the patient is alert, he appears to be in no acute distress. Patient states he did contact his orthopedic surgeons office (Dr. Soto) and he was advised to come to the emergency department to be assessed. ROS: - Per HPI Differential Diagnosis: Abscess, cellulitis, wound dehiscence, necrotizing soft tissue infection, amongst other potential pathologies. *Outpatient medications and allergy history reviewed. PE: General: Alert, no acute distress HEENT: Normocephalic, trachea midline Eyes: Extraocular eye movement is intact, no scleral erythema Pulmonary: Clear to auscultation bilaterally, no wheezing Cardio: Regular rate and rhythm GI: Abdomen is soft to palpation : No suprapubic tenderness MSK: Status post right sided BKA, status post left-sided AKA Skin: There is dehiscence of surgical wound to the site of left-sided AKA with some mild purulent drainage to the mid aspect of the wound where it is opening, there is no crepitus to palpation of the surrounding soft tissues, open wound is noted to the left groin area with active purulent drainage Neuro: Alert, no focal deficits Psychiatric: Cooperative INDEPENDENT INTERPRETATIONS: awake overnight monitor: (As interpreted by myself): - An order was placed for continuous cardiac monitoring - Patient was noted to be in sinus rhythm with a rate of 80 Interventions provided in ED: - IV fluid bolus, IV vancomycin, IV Zosyn Medical Decision Making: IV was established and lab work obtained, patient was placed on media monitor. Lab work shows no leukocytosis, hemoglobin is stable at 9.9, platelet count is normal, CMP does not show any evidence of any critical findings. Procalcitonin is low at 0.08. I did consult with orthopedics, patient was evaluated at the bedside by Dr. Soto, following his evaluation he recommended admission to the medicine service for initiation of IV antibiotics and orthopedic service will follow. CT imaging of the pelvis was obtained, there is evidence of the patient's pre- existing chronic fistula with possible abscess in this region, inflammatory changes are noted in the area of the patient's AKA wound without a discrete abscess identified. Given these findings, general surgery was also consulted, I feel in regards to the patient's fistula these findings are likely chronic as he does not have any new complaints in this area today on my exam or interview, general surgery will follow following my discussion with the midlevel provider for Dr. Shankar. Case was discussed with the on-call hospitalist, Dr. Wei, and the patient was placed for admission in stable condition for further management and specialty consultation with orthopedics and general surgery. Consultants/Discussions held with other healthcare providers: - Orthopedic surgery, Dr. Soto - General Surgery, Dr. Shankar - Hospitalist, Dr. Wei Disposition discussion held by myself with: - Patient Diagnosis: 1. Postoperative wound infection, acute, left femur 2. Chronic perineal fistula 3. Anemia, chronic, stable Disposition: Admission Tyree Perry DO Emergency Medicine Past Med/Surg History Problem List (Updated 02/27/25 @ 00:07 by Background Daemon) Postprocedural wound infection (Acute) Postoperative infection Wound of left lower extremity Adrenal adenoma Environmental allergies Gastroparesis Pressure ulcer of BKA stump, stage 3 Perineal fistula (Acute) following with Dr.Buzas Arshad Colostomy in place Bacteroides infection 08/2023 Escherichia coli (E. coli) infection 2022 MSSA (methicillin susceptible Staphylococcus aureus) infection Intertrigo Cellulitis 08/2023 Fungal dermatitis S/P laparoscopic cholecystectomy Encounter for pre-operative examination Chronic kidney disease, stage III (moderate) Coronary arteriosclerosis Chronic ulcer of sacral region Muscle spasm Problem related to social environment, unspecified Wound of left groin (Acute) following with Dr.Buzas James Ambulatory dysfunction BPH (benign prostatic hyperplasia) Urinary retention Stage III pressure ulcer of left buttock Gastric wall thickening Perirectal abscess (Acute) following with Dr.Buzas James Rectal bleeding (Acute) Marychuy-rectal abscess (Acute) following with Dr.Buzas James Above knee amputation of left lower extremity Surgical wound, non healing (Acute) Stage III pressure ulcer Hypokalemia (Acute) Anemia Tinea cruris Proctitis Iron deficiency COPD (chronic obstructive pulmonary disease) Peripheral arterial disease (Chronic) Elevated parathyroid hormone Nephrolithiasis Osteoporosis Diabetes type 1, controlled Diabetic autonomic neuropathy associated with type 1 diabetes mellitus (Chronic) Proliferative diabetic retinopathy associated with type 1 diabetes mellitus (Chronic) Aortic stenosis s/p porcine valve replacement (2015) + CABG x1 Follows with [facility] cardio History of aortic valve replacement 2016 ([facility]) Medical History (Updated 03/31/25 @ 20:44 by Tyree Perry DO) CKD stage 3 secondary to diabetes PAD (peripheral artery disease) s/p B/L LE stenting and LLE bypass Ambulatory dysfunction WC bound Colostomy in place Insulin pump in place Chronic wound left groin area, recently under anesthesia thru [facility] 01/09/25, for evaluation of his wound, "which surgeon stated no surgical intervention necessary at that time" History of aortic stenosis s/p porcine valve replacement (2015) + CABG x1 Follows with [facility] cardio Diabetic peripheral neuropathy associated with type 1 diabetes mellitus History of COPD History of BPH Hx of chronic kidney disease Above knee amputation of left lower extremity History of nephrolithiasis Gastroparesis Anemia 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) Hx MRSA infection 01/2022 (left heel) History of colon polyps History of Clostridium difficile infection s/p treatment (2020) Below-knee amputation of right lower extremity Clostridium difficile colitis hx, 2020, resolved DVT prophylaxis hx Folate deficiency GERD (gastroesophageal reflux disease) Dyslipidemia hx Hypertension Hypothyroidism Vitamin D deficiency CAD (coronary artery disease) s/p CABG (SVG to PDA) x 1 (2015) Surgical History (Updated 02/27/25 @ 00:07 by Ronda Chan) History of surgery EUA, debridement of perineal cyst 01/09/25: under GA at [facility]; no issues reported History of below-knee amputation of right lower extremity History of left above knee amputation 07/2022 History of intestinal surgery (2022) w/creation colostomy, [facility] Hx laparoscopic cholecystectomy (07/17/23) Robotic assisted Laparoscopic Cholecystectomy(Not Applicable) - Markus Dawson DO, FACS Hx of cystoscopy w/stent placement; stent then removed History of skin graft Split Thickness Skin Graft of Left Lateral Ankle (11/18/20): LMA#5, atraumatic x1 at [facility] Hx of surgical procedure Left Leg Wound Debridement and Irrigation History of arterial bypass of lower extremity Left femoral to PT composite bypass graft (06/2020), Right femoral to PT bypass graft 01/2021, Removal right fem-pop bypass 03/2021 (graft occluded) History of carpal tunnel release R/L History of tooth extraction History of tonsillectomy History of myringotomy w/tubes bilat. S/P femoropopliteal bypass surgery Right fem-pop bypass graft (01/19/21): Grade 2 view, MAC 3.0, ETT 8.0 at [facility] Left femoral to PT composite bypass graft (06/2020) History of cardiac cath x2, most recent 2015 > no stents (subsequent CABG with AVR in 2015); [facility] History of umbilical hernia repair S/P insertion of iliac artery stent B/L iliac stent placement (2014) H/O endarterectomy R common femoral (11/2018) History of open reduction and internal fixation (ORIF) procedure LLE () History of colonoscopy History of esophagogastroduodenoscopy (EGD) H/O cataract extraction R/L History of ankle surgery left ankle, repair left ankle, hardware removed History of coronary artery bypass graft CABG x1 + AVR (2015) 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 Left transmetatarsal amputation (11/23/21): LMA# 5.0 at [facility]. No issues noted per post-op anesthesia progress note. HX 1 SX TO REMOVE ALL TOES LEFT FOOT NOVEMBER 2021 Family History Brother Family history of diabetes mellitus Sister Family history of diabetes mellitus Mother Family history of diabetes mellitus Grandmother (Maternal) Family history of diabetes mellitus Uncle Family hx of colon cancer Colorectal cancer Father Family history of esophageal cancer Sister Family history of diabetes mellitus Other No family history of adverse response to anesthesia Denies family history of Ovarian cancer Prostate cancer Myocardial infarction Breast cancer Social History Smoking Status: Never smoker Tobacco Type: Cigarettes and Smokeless Tobacco (Dip or Chew) Age Started Using Tobacco: 15; Age Quit Using Tobacco: 53; packs per day: 1; Cigarettes Per Day: 20; Second Hand Exposure: No; Do You Dip or Chew Tobacco: No (quit pouches years ago); Hx Alcohol Use: Yes Alcohol type: beer Alcohol Intake Frequency: Monthly or Less Hx Substance Use: No Preferred Language: Urugu[place] Communication Ability: Effective Visual Impairment: No Limitations Hearing Ability: Hard of Hearing Child Development Associate Teacher Required: No Beliefs That Will Affect Care: None marital status: Current Living Situation: Family Current Living Situation Comment: Daughter is living with him current occupational status: disabled How many Children do You have: 2 How many Children do You have Comment: family assists with care, also is part of the waiver program so the pt's roommate is able to assist with care through this program Feels Safe at Home: Yes Childhood Exposure to Second-Hand Smoke: Yes Diet: diabetic Diet Comment: Carb Counts. ([id number], roughly), protein drinks caffeine: Yes (coffee, rarely ) during the past year weight has: remained stable Dental Care, Regularly: No Seatbelt Use: always Sunscreen Use: No Gender Identity: Male Assistive Devices: Hospital Bed, Walker and Wheelchair Allergies Allergies Allergy/AdvReac Type Severity Reaction Status Date / Time No Known Allergies Allergy Unknown Verified 02/14/25 11:26 Home Meds Home Medications Medication Instructions Recorded Confirmed aspirin 81 mg tablet,delayed 81 mg PO QAM 05/04/21 03/31/25 release (Mohit Low Dose Aspirin) acetaminophen 500 mg tablet 500 mg PO Q8 PRN Pain 02/22/24 03/31/25 (Tylenol Extra Strength) pantoprazole 40 mg tablet,delayed 40 mg PO QAM 01/26/25 03/31/25 release (Protonix) tamsulosin 0.4 mg capsule 0.4 mg PO QAM 01/26/25 03/31/25 trazodone 100 mg tablet 100 mg PO HS PRN Sleep 01/26/25 03/31/25 ibuprofen 200 mg tablet 400 mg PO Q6H PRN Pain 02/06/25 03/31/25 levothyroxine 200 mcg tablet 200 mcg PO QAM 02/06/25 03/31/25 oxycodone 5 mg tablet 5 - 10 mg PO Q6H PRN pain 02/06/25 03/31/25 magic mix 1 applic topical BID 03/31/25 03/31/25 Previous Rx's Medication Instructions Recorded Replacement Brakes for Manual #1 ea 05/12/23 Wheelchair Mattress (Air or other) #1 ea 06/19/23 Wheelchair (Manual) (Manual #1 ea 06/19/23 Wheelchair) simethicone 125 mg capsule (Gas-X 125 mg PO DAILY PRN abdominal 07/24/23 Extra Strength) distention #14 caps ondansetron 4 mg disintegrating 4 mg PO Q6H PRN nausea and 07/25/23 tablet vomiting #30 tabs 10 incches wedge pillow #1 ea 11/01/23 AQUACEL AG #30 ea 03/12/24 Optifoam #30 ea 03/12/24 levocetirizine 5 mg tablet 5 mg PO QPM #90 tabs 05/09/24 ferrous sulfate 325 mg (65 mg 325 mg PO BID #60 tabs 06/24/24 iron) tablet,delayed release chlorthalidone 25 mg tablet 25 mg PO QAM #90 tabs 07/24/24 ROHO Cushion #1 ea 08/23/24 insulin aspart U-100 100 unit/mL See Rx Instructions continuous 09/10/24 subcutaneous solution (Novolog subcutaneous infusion CONTINOUS U-100 Insulin aspart) #60 mL clopidogrel 75 mg tablet (Plavix) 75 mg PO QAM #90 tabs 10/22/24 folic acid 1 mg tablet 1 mg PO QAM #90 tabs 10/22/24 metoprolol tartrate 25 mg tablet 12.5 mg (1/2 x 25 mg) PO BID #90 11/15/24 tabs atorvastatin 80 mg tablet (Lipitor) 80 mg PO HS #90 tabs 11/29/24 calcitriol 0.25 mcg capsule 0.25 mcg PO QAM #30 caps 01/22/25 potassium chloride 20 mEq 20 meq PO BID #180 tabs 03/25/25 tablet,extended release Results & Data (ED) Vital Signs Vital Signs - 24 hr 03/31/25 16:24 03/31/25 16:24 03/31/25 16:24 Temperature 36.8 C Temperature Source Oral Pulse Rate 75 75 Pulse Rate [Apical] Pulse Rhythm Regular Regular Pulse Strength Normal Respiratory Rate 20 20 Respiratory Effort / Characteristics Non-Labored Spontaneous Respiratory Depth Normal Respiratory Pattern Regular Blood Pressure 136/59 L Blood Pressure [Right Arm] 136/59 L Blood Pressure Mean 84 Blood Pressure Mean [Right Arm] 84 Blood Pressure Position Lying Blood Pressure Position [Right Arm] Lying Pulse Oximetry 97 98 Oxygen Delivery Method Room Air Room Air Sepsis Recent Fever Within 48 Hours No Sepsis New/Unexplained Change in Mental Status No Sepsis Action Taken by Nursing No Action Required 03/31/25 17:17 03/31/25 18:12 03/31/25 18:15 Temperature Temperature Source Pulse Rate Pulse Rate [Apical] 76 87 Pulse Rhythm Pulse Strength Respiratory Rate 20 20 Respiratory Effort / Characteristics Non-Labored Non-Labored Respiratory Depth Normal Normal Respiratory Pattern Blood Pressure Blood Pressure [Right Arm] 110/54 L Blood Pressure Mean Blood Pressure Mean [Right Arm] 72 Blood Pressure Position Blood Pressure Position [Right Arm] Pulse Oximetry 97 95 Oxygen Delivery Method Room Air Room Air Sepsis Recent Fever Within 48 Hours Sepsis New/Unexplained Change in Mental Status Sepsis Action Taken by Nursing 03/31/25 18:44 03/31/25 19:00 03/31/25 19:36 Temperature Temperature Source Pulse Rate 107 H 71 78 Pulse Rate [Apical] Pulse Rhythm Pulse Strength Respiratory Rate 13 17 Respiratory Effort / Characteristics Respiratory Depth Respiratory Pattern Blood Pressure 147/77 H Blood Pressure [Right Arm] Blood Pressure Mean 100 Blood Pressure Mean [Right Arm] Blood Pressure Position Blood Pressure Position [Right Arm] Pulse Oximetry 96 Oxygen Delivery Method Room Air Sepsis Recent Fever Within 48 Hours Sepsis New/Unexplained Change in Mental Status Sepsis Action Taken by Nursing 03/31/25 20:30 Temperature Temperature Source Pulse Rate 78 Pulse Rate [Apical] Pulse Rhythm Pulse Strength Respiratory Rate 18 Respiratory Effort / Characteristics Respiratory Depth Respiratory Pattern Blood Pressure 164/82 H Blood Pressure [Right Arm] Blood Pressure Mean 98 Blood Pressure Mean [Right Arm] Blood Pressure Position Blood Pressure Position [Right Arm] Pulse Oximetry Oxygen Delivery Method Sepsis Recent Fever Within 48 Hours Sepsis New/Unexplained Change in Mental Status Sepsis Action Taken by Nursing Laboratory Data 03/31/25 16:30 03/31/25 16:30 Lab Results 03/31/25 03/31/25 Range/Units 16:30 19:51 WBC 9.34 (4.8-10.8) K/ul RBC 3.90 L (4.70-6.10) M/uL Hgb 9.9 L (14.0-18.0) g/dl Hct 31.9 L (42.0-52.0) % MCV 81.8 (80.0-100.0) fL MCH 25.4 (25.0-34.0) pg MCHC 31.0 L (32.0-36.0) g/dL RDW Std Deviation 41.3 (36.4-46.3) fL RDW Coeff of Chan 13.8 (11.5-14.5) % Plt Count 282 (130-400) K/uL MPV 10.1 (9.4-12.4) fL Immature Gran % (Auto) 0.3 % Neut % (Auto) 66.0 % Lymph % (Auto) 16.2 % Haakon % (Auto) 10.8 % Eos % (Auto) 6.1 % Baso % (Auto) 0.6 % Neut # (Auto) 6.16 (1.40-6.50) K/uL Lymph # (Auto) 1.51 (1.20-3.40) K/uL Haakon # (Auto) 1.01 H (0.11-0.59) K/uL Eos # (Auto) 0.57 H (0.00-0.50) K/uL Baso # (Auto) 0.06 (0.00-0.20) K/uL Immature Gran # (Auto) 0.03 (0.01-0.20) K/uL Sodium 139 (136-145) mmol/L Potassium 4.1 (3.5-5.1) mmol/L Chloride 105 (98-107) mmol/L Carbon Dioxide 28 (21-32) mmol/L Anion Gap 6 (3-11) BUN 20 (6-23) mg/dl Creatinine 0.67 (0.6-1.4) mg/dl Est Cr Clr Drug Dosing 96.8 ml/min eGFR 102.34 BUN/Creatinine Ratio 29.9 H (10-20) Glucose 171 H (70-99(Fasting)) mg/dl Lactate 1.4 (0.4-2.0) mmol/L Calcium 9.0 (8.6-10.3) mg/dl Magnesium 1.7 (1.7-2.4) mg/dl Total Bilirubin 0.3 (0.2-1.0) mg/dl Direct Bilirubin 0.1 (0-0.2) mg/dl AST 12 L (13-39) U/L ALT 12 (7-52) U/L Alkaline Phosphatase 121 H (34-104) U/L Troponin I High Sens 6.7 (0-20) pg/ml Total Protein 6.9 (6.0-8.3) gm/dl Albumin 3.1 L (3.4-5.0) gm/dl Procalcitonin 0.08 (0-0.5) ng/ml Urine Color Yellow Urine Appearance Clear (Clear) Urine pH 6.0 (4.5-7.5) Ur Specific [place] 1.045 H (1.000-1.030) Urine Protein Negative (Negative) Urine Glucose (UA) Negative (Negative) Urine Ketones Negative (Negative) Urine Blood Negative (Negative) Urine Nitrite Negative (Negative) Urine Bilirubin Negative (Negative) Urine Urobilinogen Negative (Negative) Ur Leukocyte Esterase Negative (Negative) Urine Comment Administered Medications Discontinued Medications Sodium Chloride (Nss) 500 mls @ 999 mls/hr IV .Q31M ONE Stop: 03/31/25 16:53 Last Infusion: 03/31/25 17:24 Dose: Infused Documented By: Admin: 03/31/25 16:50 Dose: 999 mls/hr Documented By: OLIMPIA Vancomycin HCl 1,750 mg/ (Sodium Chloride) 535 mls @ 200 mls/hr IV NOW ONE Stop: 03/31/25 19:46 Last Admin: 03/31/25 18:30 Dose: 200 mls/hr Documented By: OLIMPIA Piperacillin Sod/Tazobactam Sod (Zosyn) 4.5 gm in 100 mls @ 200 mls/hr IV NOW ONE; Protocol Stop: 03/31/25 17:35 Last Infusion: 03/31/25 18:08 Dose: Infused Documented By: Admin: 03/31/25 17:23 Dose: 200 mls/hr Documented By: OLIMPIA Ioversol (Optiray 320 100ml) 93 ml IV ONCE ONE Stop: 03/31/25 18:05 Last Admin: 03/31/25 18:04 Dose: 93 ml Documented By: JESSICA Morphine Sulfate (Morphine Sulfate 2 Mg/Ml Carp) 2 mg IV NOW STA Stop: 03/31/25 20:07 Last Admin: 03/31/25 20:29 Dose: 2 mg Documented By: [facility] Imaging Data Radiologist's Impression: Pelvis CT 03/31/25 16:22 CT PELVIS: TECHNIQUE: Contrast-enhanced CT examination of the pelvis was performed. IV CONTRAST: 100 mL of OMNIPAQUE 300. HISTORY: Pelvic pain COMPARISON: CT abdomen pelvis August 31, 2023 FINDINGS: URINARY BLADDER: Inflamed with moderate wall thickening. There are 3 mm calcific densities over the dependent area of the uterine bladder posteriorly which may represent urine and bladder calculi. REPRODUCTIVE ORGANS: Mildly enlarged prostate. AORTA and ILIAC ARTERIES: No aneurysmal dilatation of the visualized portion of the aorta or iliac arteries seen. Extensive atherosclerosis with severe stenoses. LYMPH NODES: No pelvic lymph adenopathy identified. GASTROINTESTINAL: The visualized bowel is normal in caliber. There is a diverting loop colostomy in the left lower quadrant. PERITONEUM: No ascites is seen. No peritoneal masses seen. PELVIC WALL: No hernia is identified. There is a left perianal fistula with a thick walled gas containing fluid structure measuring 9.5 x 1.5 x 9.5 cm (AP x TV x CC). No significant inflammatory changes noted in the inguinal regions bilaterally with redemonstrated scarring materials from vascular surgeries/procedures in these areas. At the site of left above-knee amputation, there are mild phlegmonous/inflammatory changes of the subcutaneous fat without drainable/organized fluid collection identified. There are ulcerative skin defect in this area. Extensive atherosclerosis and bypass surgeries are noted again in the inguinal regions and in the partially included lower extremities. OSSEOUS STRUCTURES: No acute or suspicious process identified. 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 No significant inflammatory changes are noted in the inguinal regions bilaterally where there are redemonstrated postsurgical changes from bypass creations. Similar scarring is seen in this area compared to the previous examination from 2022. At the site of left above-knee amputation, there are mild phlegmonous/inflammatory changes of the subcutaneous fat without drainable/organized fluid collection identified. There are ulcerative skin defect in this area. Inflammatory changes of the bladder suggesting cystitis. Electronically signed by Samir Osei 03-31-2025 6:43 PM Discharge Plan Visit Data Chief Complaint: Infection, Wound ED Provider: Tyree Perry Discharge Problem: Postprocedural wound infection Patient Disposition: Admitted As Inpatient Condition: Fair Forms Stand Alone Forms: [facility] Prescriptions Prescriptions: No Action (DME) Replacement Brakes for Manual Wheelchair See Rx Instructions .Route .MEDSUPPLY Qty: 1 0RF Rx Instructions: As directed (DME) Manual Wheelchair Device See Rx Instructions .Route Qty: 1 0RF Rx Instructions: wheel chair repair (DME) Mattress (Air or other) Misc See Rx Instructions .Route Qty: 1 0RF Rx Instructions: Alternating pressure mattress, use daily ondansetron 4 mg tablet,disintegrating 4 mg PO Q6H PRN (Reason: nausea and vomiting) Qty: 30 3RF (DME) 10 incches wedge pillow See Rx Instructions .Route .MEDSUPPLY Qty: 1 0RF Rx Instructions: As directed (DME) AQUACEL AG See Rx Instructions .Route .MEDSUPPLY Qty: 30 0RF Rx Instructions: Cleanse site of Left AKA with saline, pat dry, apply AQUACEL AG, then cover with optifoam. Change every other day. (DME) Optifoam See Rx Instructions .Route .MEDSUPPLY Qty: 30 0RF Rx Instructions: Cleanse site of Left AKA with saline, pat dry, apply AQUACEL AG, then cover with optifoam. Change every other day. levocetirizine 5 mg tablet 5 mg PO QPM Qty: 90 3RF ferrous sulfate 325 mg (65 mg iron) tablet,delayed release (DR/EC) 325 mg PO BID Qty: 60 5RF chlorthalidone 25 mg tablet 25 mg PO QAM Qty: 90 3RF insulin aspart U-100 [Novolog U-100 Insulin aspart] 100 unit/mL solution See Rx Instructions continuous subcutaneous infusion CONTINOUS Qty: 60 1RF Rx Instructions: insulin pump TDD 60 units via continuous subcutaneous infusion continuous; PT UNSURE OF BASAL RATE/DOSE VARIES DEPENDING ON CARB INTAKE. , insulin pump TDD 60 units clopidogrel [Plavix] 75 mg tablet 75 mg PO QAM Qty: 90 3RF folic acid 1 mg tablet 1 mg PO QAM Qty: 90 3RF metoprolol tartrate 25 mg tablet 12.5 mg PO BID Qty: 90 3RF atorvastatin [Lipitor] 80 mg tablet 80 mg PO HS Qty: 90 3RF calcitriol 0.25 mcg capsule 0.25 mcg PO QAM Qty: 30 5RF potassium chloride 20 mEq tablet extended release 20 meq PO BID Qty: 180 3RF simethicone [Gas-X Extra Strength] 125 mg capsule 125 mg PO DAILY PRN (Reason: abdominal distention) Qty: 14 0RF (DME) ABBEY Lyles See Rx Instructions .Route .MEDSUPPLY Qty: 1 0RF Rx Instructions: As directed with wheelchair for treatment/prevention of pressure sores acetaminophen [Tylenol Extra Strength] 500 mg tablet 500 mg PO Q8 PRN (Reason: Pain) aspirin [Mohit Low Dose Aspirin] 81 mg tablet,delayed release (DR/EC) 81 mg PO QAM tamsulosin 0.4 mg capsule 0.4 mg PO QAM trazodone 100 mg tablet 100 mg PO HS PRN (Reason: Sleep) Patient Comments: rare use pantoprazole [Protonix] 40 mg tablet,delayed release (DR/EC) 40 mg PO QAM ibuprofen 200 mg Tablet 400 mg PO Q6H PRN (Reason: Pain) levothyroxine 200 mcg tablet 200 mcg PO QAM oxycodone 5 mg tablet 5 - 10 mg PO Q6H PRN (Reason: pain) Rx Instructions: 1-2 orally every 6 hours PRN; magic mix 1 applic topical BID Rx Instructions: 1:1; silvadene,HCT, Nystatin,and zinc cream to groin, buttocks wound areas bid Referrals Referrals: Jeremias Morton DO [Primary Care Provider] -
[2025-03-31] MEDS: SODIUM CHLORIDE 0.9% 500 ML IV ONE (16:50)
[2025-03-31] MEDS ORDERED: VANCOMYCIN CONSULT ACTIVE PRN (17:06)
[2025-03-31 17:08] LABS: Hematocrit (blood only) 31.9 % (42.0-52.0); Hemoglobin 9.9 g/dl (14.0-18.0); Immature Granulocytes # (auto) 0.03 K/uL (0.01-0.20); Immature Granulocytes % (auto) 0.3 %; Mean Corpuscular Hemoglobin 25.4 pg (25.0-34.0); Mean Corpuscular Volume 81.8 fL (80.0-100.0); Platelet Count 282 K/uL (130-400); RDW Standard Deviation 41.3 fL (36.4-46.3); Red Blood Count 3.90 M/uL (4.70-6.10); White Blood Count 9.34 K/ul (4.8-10.8)
--- NOTE | 2025-03-31 17:12 | Orthopedic Progress Note ---
Date of Service March 31, 2025 Assessment & Plan (1) Postoperative infection: Orthopedic Progress Note Mr. 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 He had some minor issues with the lateral portion of his wound. Over the past few days things have worsened with wound dehiscence purulent drainage increased redness and a prickly pain feeling. The remainder of the incision is healed. I can express a drop of purulence. There is an area about 6 to 8 cm long on the lateral portion of the incision which is in various stages of opening. There is erythema with crust around that area. I do not feel any significant fluctuance. No induration. Imaging and labs are pending. Has not reported any fevers. Impressions probable postoperative wound infection with dehiscence status post left above-knee amputation revision. Plan I would recommend that he be admitted to the hospital by medicine and placed on broad-spectrum antibiotics. I obtained a culture from the wound to a depth of about 1 cm. This was after prepping with alcohol and Mr. Chowdhury giving permission. He may potentially need surgery with wound revision. Possible wound care and wound VAC. I will coordinate care with Dr. Bergeron.
[2025-03-31] MEDS: PIPERACILLIN/TAZOBACTAM 4.5 GM/100 ML BAG IV ONE (17:23)
[2025-03-31 17:25] LABS: Alanine Aminotransferase 12.0 U/L (7-52); Alkaline Phosphatase 121.0 U/L (34-104); Anion Gap 6.0 (3-11); Bilirubin,Total 0.3 mg/dl (0.2-1.0); Blood Urea Nitrogen 20.0 mg/dl (6-23); Calcium 9.0 mg/dl (8.6-10.3); Carbon Dioxide 28.0 mmol/L (21-32); Chloride 105.0 mmol/L (98-107); Creatinine Clr Calc Pharmacy 96.8 ml/min; Glucose 171.0 mg/dl (70-99(Fasting)); Magnesium 1.7 mg/dl (1.7-2.4); Potassium 4.1 mmol/L (3.5-5.1); Sodium 139.0 mmol/L (136-145); Total Protein 6.9 gm/dl (6.0-8.3)
[2025-03-31] MEDS: OPTIRAY 320 100ml IV ONE (18:04)
[2025-03-31] MEDS: VANCOMYCIN HCL 1,750 MG in SODIUM CHLORIDE 0.9% 500 ML IV ONE (18:30)
--- NOTE | 2025-03-31 18:44 | CT Scan Report ---
CT PELVIS: TECHNIQUE: Contrast-enhanced CT examination of the pelvis was performed. IV CONTRAST: 100 mL of OMNIPAQUE 300. HISTORY: Pelvic pain COMPARISON: CT abdomen pelvis August 31, 2023 FINDINGS: URINARY BLADDER: Inflamed with moderate wall thickening. There are 3 mm calcific densities over the dependent area of the uterine bladder posteriorly which may represent urine and bladder calculi. REPRODUCTIVE ORGANS: Mildly enlarged prostate. AORTA and ILIAC ARTERIES: No aneurysmal dilatation of the visualized portion of the aorta or iliac arteries seen. Extensive atherosclerosis with severe stenoses. LYMPH NODES: No pelvic lymph adenopathy identified. GASTROINTESTINAL: The visualized bowel is normal in caliber. There is a diverting loop colostomy in the left lower quadrant. PERITONEUM: No ascites is seen. No peritoneal masses seen. PELVIC WALL: No hernia is identified. There is a left perianal fistula with a thick walled gas containing fluid structure measuring 9.5 x 1.5 x 9.5 cm (AP x TV x CC). No significant inflammatory changes noted in the inguinal regions bilaterally with redemonstrated scarring materials from vascular surgeries/procedures in these areas. At the site of left above-knee amputation, there are mild phlegmonous/inflammatory changes of the subcutaneous fat without drainable/organized fluid collection identified. There are ulcerative skin defect in this area. Extensive atherosclerosis and bypass surgeries are noted again in the inguinal regions and in the partially included lower extremities. OSSEOUS STRUCTURES: No acute or suspicious process identified. 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 No significant inflammatory changes are noted in the inguinal regions bilaterally where there are redemonstrated postsurgical changes from bypass creations. Similar scarring is seen in this area compared to the previous examination from 2022. At the site of left above-knee amputation, there are mild phlegmonous/inflammatory changes of the subcutaneous fat without drainable/organized fluid collection identified. There are ulcerative skin defect in this area. Inflammatory changes of the bladder suggesting cystitis. Electronically signed by Samir Osei 03-31-2025 6:43 PM
[2025-03-31 20:11] LABS: Appearance Urine Clear (Clear); Glucose Urine UA Negative (Negative)
[2025-03-31] MEDS: MoRPHine SULFATE 2 MG/ML CARP IV STA (20:29)
--- NOTE | 2025-03-31 20:31 | History & Physical Report ---
Date of Service March 31, 2025 Assessment & Plan (1) Postoperative infection: (2) Perineal fistula: (3) Peripheral arterial disease: (4) CAD (coronary artery disease): (5) Diabetes type 1, controlled: (6) Hypertension: (7) Dyslipidemia: (8) CKD stage 3 secondary to diabetes: (9) Hypothyroidism: (10) GERD (gastroesophageal reflux disease): (11) BPH (benign prostatic hyperplasia): Plan 69yo male with CKD, HTN, HLP, CAD, PAD s/p right BKA and left AKA with recent revision 02/14/25 presenting with increased redness, warmth, swelling of the surgical site of left AKA revision. Some wound dehiscence with minimal drainage. #Post-operative infection - patient afebrile. WBC=14.4. Non-toxic in appearance. Does not appear to be septic -Admit to medical with telemetry -Wound care daily -Follow cultures sent from ER -Antibiotic coverage with Daptomycin and Zosyn -Orthopedic surgery consultation appreciated -Will keep patient NPO for possible surgical debridement in AM -LR at 100mL/hr x 2L ordered -Tylenol and Morphine PRN pain and with dressing changes -Zofran PRN #Buttock wound/perineal fistula with possible abscess - ongoing issue for which patient follows with colorectal surgery at [facility]. He has been seen by our surgical team for evaluation as well. -Turn and position q 2 hours -Wound care daily and PRN -Specialty bed appreciated #Colostomy in place -Routine management #Diabetes - overall well controlled. Last [id number] on 01/24/25 -Patient may use his own insulin pump and continuous glucose monitoring -Hypoglycemia protocols in place #CAD/PAD -Continue ASA 81mg po daily -Continue Metoprolol -Hold Atorvastatin while on Daptomycin #Hypertension -Hold Chlorthalidone for now #Hyperlipidemia -Hold Atorvastatin while on Daptomycin #Hypothyroidism -Continue Synthroid 200mcg po daily -Hold Plavix 75mg po daily #GERD -Continue PRotonix 40mg po daily #BPH -Continue Flomax 0.4mg po daily History of Present Illness Chief Complaint: LLE wound dehiscence Primary Care Provider: Jeremias Morton, Ron Chowdhury is a 69yo male with history of peripheral arterial disease s/p bilateral LE stenting and LLE bypass stenting s/p right BKA, HTN, HLP, DM with insulin pump in place, CAD s/p CABG x 1 in 2016, s/p bioprosthetic AVR in 2016, COPD s/p left AKA by Dr. Soto in July 2022. Patient had revision of left AKA performed by Dr. Soto on 02/14/2025. The surgery was well tolerated with no complications. Patient resides at home and has family members that assist him with wound care as well as home nursing twice weekly. Patient reports 2-3 days of increased pain, warmth, swelling and drainage of the LLE wound. He was seen by his home nurse today and was noted to have some purulent drainage and wound dehiscence. They contacted Dr. Soto's office and were instructed to come to the ER. In the ER patient is afebrile, HD stable. He has a chronic perineal/sacral wound ongoing for the last 2 years for which he follows with [facility] [place]-rectal surgery ER Course: Patient has been evaluated by Orthopedic Surgery as well as General Surgery NSS 500mL Zosyn 4.5gm Vancomycin 1750mg Morphine 2mg IV Zofran 4mg IV Allergies Allergy/AdvReac Type Severity Reaction Status Date / Time No Known Allergies Allergy Unknown Verified 02/14/25 11:26 Home Medications Medication Instructions Recorded Confirmed Type aspirin 81 mg tablet,delayed 81 mg PO QAM 05/04/21 03/31/25 History release (Mohit Low Dose Aspirin) Replacement Brakes for Manual #1 ea 05/12/23 01/26/25 Rx Wheelchair Mattress (Air or other) #1 ea 06/19/23 01/26/25 Rx Wheelchair (Manual) (Manual #1 ea 06/19/23 01/26/25 Rx Wheelchair) simethicone 125 mg capsule (Gas-X 125 mg PO DAILY PRN abdominal 07/24/23 03/31/25 Rx Extra Strength) distention #14 caps ondansetron 4 mg disintegrating 4 mg PO Q6H PRN nausea and 07/25/23 03/31/25 Rx tablet vomiting #30 tabs 10 incches wedge pillow #1 ea 11/01/23 01/26/25 Rx acetaminophen 500 mg tablet 500 mg PO Q8 PRN Pain 02/22/24 03/31/25 History (Tylenol Extra Strength) AppLovinEL AG #30 ea 03/12/24 01/26/25 Rx Optifoam #30 ea 03/12/24 01/26/25 Rx levocetirizine 5 mg tablet 5 mg PO QPM #90 tabs 05/09/24 03/31/25 Rx ferrous sulfate 325 mg (65 mg 325 mg PO BID #60 tabs 06/24/24 03/31/25 Rx iron) tablet,delayed release chlorthalidone 25 mg tablet 25 mg PO QAM #90 tabs 07/24/24 03/31/25 Rx ABBEY Leighion #1 ea 08/23/24 01/26/25 Rx insulin aspart U-100 100 unit/mL See Rx Instructions continuous 09/10/24 Rx subcutaneous solution (Novolog subcutaneous infusion CONTINOUS U-100 Insulin aspart) #60 mL clopidogrel 75 mg tablet (Plavix) 75 mg PO QAM #90 tabs 10/22/24 03/31/25 Rx folic acid 1 mg tablet 1 mg PO QAM #90 tabs 10/22/24 03/31/25 Rx metoprolol tartrate 25 mg tablet 12.5 mg (1/2 x 25 mg) PO BID #90 11/15/24 03/31/25 Rx tabs atorvastatin 80 mg tablet (Lipitor) 80 mg PO HS #90 tabs 11/29/24 03/31/25 Rx calcitriol 0.25 mcg capsule 0.25 mcg PO QAM #30 caps 01/22/25 03/31/25 Rx pantoprazole 40 mg tablet,delayed 40 mg PO QAM 01/26/25 03/31/25 History release (Protonix) tamsulosin 0.4 mg capsule 0.4 mg PO QAM 01/26/25 03/31/25 History trazodone 100 mg tablet 100 mg PO HS PRN Sleep 01/26/25 03/31/25 History ibuprofen 200 mg tablet 400 mg PO Q6H PRN Pain 02/06/25 03/31/25 History levothyroxine 200 mcg tablet 200 mcg PO QAM 02/06/25 03/31/25 History oxycodone 5 mg tablet 5 - 10 mg PO Q6H PRN pain 02/06/25 03/31/25 History potassium chloride 20 mEq 20 meq PO BID #180 tabs 03/25/25 03/31/25 Rx tablet,extended release magic mix 1 applic topical BID 03/31/25 03/31/25 History Past Med/Surg History Problem List Postprocedural wound infection (Acute) Postoperative infection Wound of left lower extremity Adrenal adenoma Environmental allergies Gastroparesis Pressure ulcer of BKA stump, stage 3 Perineal fistula (Acute) following with Dr.Buzas Arshad Colostomy in place Bacteroides infection 08/2023 Escherichia coli (E. coli) infection 2022 MSSA (methicillin susceptible Staphylococcus aureus) infection Intertrigo Cellulitis 08/2023 Fungal dermatitis S/P laparoscopic cholecystectomy Encounter for pre-operative examination Chronic kidney disease, stage III (moderate) Coronary arteriosclerosis Chronic ulcer of sacral region Muscle spasm Problem related to social environment, unspecified Wound of left groin (Acute) following with Dr.Buzas James Ambulatory dysfunction BPH (benign prostatic hyperplasia) Urinary retention Stage III pressure ulcer of left buttock Gastric wall thickening Perirectal abscess (Acute) following with Dr.Buzas James Rectal bleeding (Acute) [place]-rectal abscess (Acute) following with Dr.Buzas James Above knee amputation of left lower extremity Surgical wound, non healing (Acute) Stage III pressure ulcer Hypokalemia (Acute) Anemia Tinea cruris Proctitis Iron deficiency COPD (chronic obstructive pulmonary disease) Peripheral arterial disease (Chronic) Elevated parathyroid hormone Nephrolithiasis Osteoporosis Diabetes type 1, controlled Diabetic autonomic neuropathy associated with type 1 diabetes mellitus (Chronic) Proliferative diabetic retinopathy associated with type 1 diabetes mellitus (Chronic) Aortic stenosis s/p porcine valve replacement (2015) + CABG x1 Follows with [facility] cardio History of aortic valve replacement 2016 ([facility] [place]) Medical History CKD stage 3 secondary to diabetes PAD (peripheral artery disease) s/p B/L LE stenting and LLE bypass Ambulatory dysfunction WC bound Colostomy in place Insulin pump in place Chronic wound left groin area, recently under anesthesia thru [facility] 01/09/25, for evaluation of his wound, "which surgeon stated no surgical intervention necessary at that time" History of aortic stenosis s/p porcine valve replacement (2015) + CABG x1 Follows with [facility] cardio Diabetic peripheral neuropathy associated with type 1 diabetes mellitus History of COPD History of BPH Hx of chronic kidney disease Above knee amputation of left lower extremity History of nephrolithiasis Gastroparesis Anemia 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) Hx MRSA infection 01/2022 (left heel) History of colon polyps History of Clostridium difficile infection s/p treatment (2020) Below-knee amputation of right lower extremity Clostridium difficile colitis hx, 2020, resolved DVT prophylaxis hx Folate deficiency GERD (gastroesophageal reflux disease) Dyslipidemia hx Hypertension Hypothyroidism Vitamin D deficiency CAD (coronary artery disease) s/p CABG (SVG to PDA) x 1 (2015) Surgical History History of surgery EUA, debridement of perineal cyst 01/09/25: under GA at [facility]; no issues reported History of below-knee amputation of right lower extremity History of left above knee amputation 07/2022 History of intestinal surgery (2022) w/creation colostomy, s [place] Hx laparoscopic cholecystectomy (07/17/23) Robotic assisted Laparoscopic Cholecystectomy(Not Applicable) - Markus Dawson DO, FACS Hx of cystoscopy w/stent placement; stent then removed History of skin graft Split Thickness Skin Graft of Left Lateral Ankle (11/18/20): LMA#5, atraumatic x1 at [facility] [place] Hx of surgical procedure Left Leg Wound Debridement and Irrigation History of arterial bypass of lower extremity Left femoral to PT composite bypass graft (06/2020), Right femoral to PT bypass graft 01/2021, Removal right fem-pop bypass 03/2021 (graft occluded) History of carpal tunnel release R/L History of tooth extraction History of tonsillectomy History of myringotomy w/tubes bilat. S/P femoropopliteal bypass surgery Right fem-pop bypass graft (01/19/21): Grade 2 view, MAC 3.0, ETT 8.0 at [facility] [place] Left femoral to PT composite bypass graft (06/2020) History of cardiac cath x2, most recent 2016 > no stents (subsequent CABG with AVR in 2015); [facility] [place] History of umbilical hernia repair S/P insertion of iliac artery stent B/L iliac stent placement (2014) H/O endarterectomy R common femoral (11/2018) History of open reduction and internal fixation (ORIF) procedure LLE () History of colonoscopy History of esophagogastroduodenoscopy (EGD) H/O cataract extraction R/L History of ankle surgery left ankle, repair left ankle, hardware removed History of coronary artery bypass graft CABG x1 + AVR (2015) 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 Left transmetatarsal amputation (11/23/21): LMA# 5.0 at [facility] [place]. No issues noted per post-op anesthesia progress note. HX 1 SX TO REMOVE ALL TOES LEFT FOOT NOVEMBER 2021 Family History Brother Family history of diabetes mellitus Sister Family history of diabetes mellitus Mother Family history of diabetes mellitus Grandmother (Maternal) Family history of diabetes mellitus Uncle Family hx of colon cancer Colorectal cancer Father Family history of esophageal cancer Sister Family history of diabetes mellitus Other No family history of adverse response to anesthesia Denies family history of Ovarian cancer Prostate cancer Myocardial infarction Breast cancer Social History Smoking Status: Former smoker Tobacco Type: Cigarettes and Smokeless Tobacco (Dip or Chew) Age Started Using Tobacco: 15; Age Quit Using Tobacco: 53; packs per day: 1; Cigarettes Per Day: 20; Smoking End Date: 2009; Second Hand Exposure: No; Do You Dip or Chew Tobacco: No; Hx Alcohol Use: Yes Alcohol type: beer Alcohol Intake Frequency: Monthly or Less Hx Substance Use: No Preferred Language: Maltese Communication Ability: Effective Visual Impairment: No Limitations Hearing Ability: Hard of Hearing Kinesiology Professor Required: No Beliefs That Will Affect Care: None marital status: Current Living Situation: Family Current Living Situation Comment: Daughter is living with him current occupational status: disabled How many Children do You have: 2 How many Children do You have Comment: family assists with care, also is part of the waiver program so the pt's roommate is able to assist with care through this program Other Information That Helps Us Care for You: No Feels Safe at Home: Yes Safety Concerns: Feels Safe At This Time Childhood Exposure to Second-Hand Smoke: Yes Diet: diabetic Diet Comment: Carb Counts. ([id number], roughly), protein drinks caffeine: Yes (coffee, rarely ) during the past year weight has: remained stable Dental Care, Regularly: No Seatbelt Use: always Sunscreen Use: No Gender Identity: Male Assistive Devices: Denture - Upper, Denture - Lower, Glasses and Wheelchair Review of Systems Review of Systems: All systems reviewed & are unremarkable except as noted in HPI & below Physical Exam Physical Exam: General: patient resting comfortably, NAD, non-toxic in appearance, AA&O x 4 HEENT: NC/AT, PERRL, EOMI, anicteric sclera, conjunctiva without injection, external ear normal to inspection and nontender, nares patent, moist mucus membranes, dentition intact, no oropharyngeal lesions, neck supple, trachea midline, no LAD, no thyromegaly, no JVD Heart: +S1/S2, regular, 3/6 POLO across precordium Lungs: equal air entry bilaterally, no rales/rhonchi/wheezes Abd: +BS, soft, NT/ND, no masses/organomegaly/ascites Ext: s/p right BKA, s/p left AKA. Left stump warm, ruborous and erythematous with some crusting and a small amount of purulent drainage expressed, some areas of dehiscence Neuro: nonfocal, patient AA&O x 4, speech intact, no facial droop, moving all extremities on command with equal strength 5/5 Results & Data Results & Data Vital Signs (Past 12 Hours) Vital Signs Temp Pulse Pulse Resp BP BP Pulse Ox 03/31/25 19:00 71 13 96 03/31/25 18:44 107 H 03/31/25 18:15 110/54 L 03/31/25 18:12 87 20 95 03/31/25 17:17 76 20 97 03/31/25 16:24 75 20 98 03/31/25 16:24 136/59 L 03/31/25 16:24 36.8 C 75 20 136/59 L 97 O2 Del Method 03/31/25 19:00 Room Air 03/31/25 18:44 03/31/25 18:15 03/31/25 18:12 Room Air 03/31/25 17:17 Room Air 03/31/25 16:24 Room Air 03/31/25 16:24 03/31/25 16:24 Room Air Laboratory Results Laboratory Results WBC 9.34 K/ul (4.8-10.8) 03/31/25 16:30 RBC 3.90 M/uL (4.70-6.10) L 03/31/25 16:30 Hgb 9.9 g/dl (14.0-18.0) L 03/31/25 16: Hct 31.9 % (42.0-52.0) L 03/31/25 16:30 MCV 81.8 fL (80.0-100.0) 03/31/25 16: MCH 25.4 pg (25.0-34.0) 03/31/25 16: MCHC 31.0 g/dL (32.0-36.0) L 03/31/25 16: RDW Std Deviation 41.3 fL (36.4-46.3) 03/31/25 16: RDW Coeff of Chan 13.8 % (11.5-14.5) 03/31/25 16: Plt Count 282 K/uL (130-400) 03/31/25 16: MPV 10.1 fL (9.4-12.4) 03/31/25 16:30 Immature Gran % (Auto) 0.3 % 03/31/25 16:30 Neut % (Auto) 66.0 % 03/31/25 16:30 Lymph % (Auto) 16.2 % 03/31/25 16:30 [place] % (Auto) 10.8 % 03/31/25 16:30 Eos % (Auto) 6.1 % 03/31/25 16:30 Baso % (Auto) 0.6 % 03/31/25 16:30 Neut # (Auto) 6.16 K/uL (1.40-6.50) 03/31/25 16:30 Lymph # (Auto) 1.51 K/uL (1.20-3.40) 03/31/25 16:30 [place] # (Auto) 1.01 K/uL (0.11-0.59) H 03/31/25 16:30 Eos # (Auto) 0.57 K/uL (0.00-0.50) H 03/31/25 16:30 Baso # (Auto) 0.06 K/uL (0.00-0.20) 03/31/25 16:30 Immature Gran # (Auto) 0.03 K/uL (0.01-0.20) 03/31/25 16:30 Sodium 139 mmol/L (136-145) 03/31/25 16:30 Potassium 4.1 mmol/L (3.5-5.1) 03/31/25 16:30 Chloride 105 mmol/L (98-107) 03/31/25 16:30 Carbon Dioxide 28 mmol/L (21-32) 03/31/25 16:30 Anion Gap 6 (3-11) 03/31/25 16:30 BUN 20 mg/dl (6-23) 03/31/25 16:30 Creatinine 0.67 mg/dl (0.6-1.4) 03/31/25 16:30 Est Cr Clr Drug Dosing 96.8 ml/min 03/31/25 16:30 eGFR 102.34 03/31/25 16:30 BUN/Creatinine Ratio 29.9 (10-20) H 03/31/25 16:30 Glucose 171 mg/dl (70-99(Fasting)) H 03/31/25 16:30 Lactate 1.4 mmol/L (0.4-2.0) 03/31/25 16:30 Calcium 9.0 mg/dl (8.6-10.3) 03/31/25 16:30 Magnesium 1.7 mg/dl (1.7-2.4) 03/31/25 16:30 Total Bilirubin 0.3 mg/dl (0.2-1.0) 03/31/25 16:30 Direct Bilirubin 0.1 mg/dl (0-0.2) 03/31/25 16:30 AST 12 U/L (13-39) L 03/31/25 16:30 ALT 12 U/L (7-52) 03/31/25 16:30 Alkaline Phosphatase 121 U/L (34-104) H 03/31/25 16:30 Troponin I High Sens 6.7 pg/ml (0-20) 03/31/25 16:30 Total Protein 6.9 gm/dl (6.0-8.3) 03/31/25 16:30 Albumin 3.1 gm/dl (3.4-5.0) L 03/31/25 16:30 Procalcitonin 0.08 ng/ml (0-0.5) 03/31/25 16:30 Urine Color Yellow 03/31/25 19:51 Urine Appearance Clear (Clear) 03/31/25 19:51 Urine pH 6.0 (4.5-7.5) 03/31/25 19:51 Ur Specific [place] 1.045 (1.000-1.030) H 03/31/25 19:51 Urine Protein Negative (Negative) 03/31/25 19:51 Urine Glucose (UA) Negative (Negative) 03/31/25 19:51 Urine Ketones Negative (Negative) 03/31/25 19:51 Urine Blood Negative (Negative) 03/31/25 19:51 Urine Nitrite Negative (Negative) 03/31/25 19:51 Urine Bilirubin Negative (Negative) 03/31/25 19:51 Urine Urobilinogen Negative (Negative) 03/31/25 19:51 Ur Leukocyte Esterase Negative (Negative) 03/31/25 19:51 Urine Comment 03/31/25 19:[address] 03/31/25 16:22 CT PELVIS: TECHNIQUE: Contrast-enhanced CT examination of the pelvis was performed. IV CONTRAST: 100 mL of OMNIPAQUE 300. HISTORY: Pelvic pain COMPARISON: CT abdomen pelvis August 31, 2023 FINDINGS: URINARY BLADDER: Inflamed with moderate wall thickening. There are 3 mm calcific densities over the dependent area of the uterine bladder posteriorly which may represent urine and bladder calculi. REPRODUCTIVE ORGANS: Mildly enlarged prostate. AORTA and ILIAC ARTERIES: No aneurysmal dilatation of the visualized portion of the aorta or iliac arteries seen. Extensive atherosclerosis with severe stenoses. LYMPH NODES: No pelvic lymph adenopathy identified. GASTROINTESTINAL: The visualized bowel is normal in caliber. There is a diverting loop colostomy in the left lower quadrant. PERITONEUM: No ascites is seen. No peritoneal masses seen. PELVIC WALL: No hernia is identified. There is a left perianal fistula with a thick walled gas containing fluid structure measuring 9.5 x 1.5 x 9.5 cm (AP x TV x CC). No significant inflammatory changes noted in the inguinal regions bilaterally with redemonstrated scarring materials from vascular surgeries/procedures in these areas. At the site of left above-knee amputation, there are mild phlegmonous/inflammatory changes of the subcutaneous fat without drainable/organized fluid collection identified. There are ulcerative skin defect in this area. Extensive atherosclerosis and bypass surgeries are noted again in the inguinal regions and in the partially included lower extremities. OSSEOUS STRUCTURES: No acute or suspicious process identified. 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 No significant inflammatory changes are noted in the inguinal regions bilaterally where there are redemonstrated postsurgical changes from bypass creations. Similar scarring is seen in this area compared to the previous examination from 2022. At the site of left above-knee amputation, there are mild phlegmonous/inflammatory changes of the subcutaneous fat without drainable/organized fluid collection identified. There are ulcerative skin defect in this area. Inflammatory changes of the bladder suggesting cystitis. Electronically signed by Samir Osei 03-31-2025 6:[address] 03/31/25 18:08 CT of the pelvis and left lower extremity with contrast Technique: Postcontrast axial images of the pelvis and left lower extremity. Coronal and sagittal reformatted images made available for review No comparison Findings: Postoperative changes right common femoral endarterectomy with a prosthetic graft extending along the medial aspect of the thigh. This is not opacified with contrast on this exam is likely due to occluded. Postoperative changes left above-knee amputation with prior left common femoral artery endarterectomy and bypass graft. Prior left SFA stenting who was also noted and occluded. Subtle inflammatory changes about the anastomosis of the left above-knee amputation stump without defined fluid collection. The profunda femoris artery does not appear to opacify on this exam. Postoperative changes kissing iliac stents with dense calcification of the iliac arteries bilaterally. Postoperative changes partial colectomy with left lower quadrant colostomy. Brinson ventral wall thickening of the urinary bladder which is under distended. Findings may represent cystitis. Bladder calcification present. Bone windows demonstrate no focal abnormality Impression: Occlusion of the right lower extremity bypass graft. Extensive occlusion of the left profunda femoris with only minimal filling of the left common femoral artery. Left superficial femoral artery is also occluded. Postoperative changes left above-knee amputation with subtle inflammatory changes about the incision. No defined rim-enhancing fluid collection identified on this exam. Findings may have been a cellulitis within the same Postoperative changes kissing iliac stents. The patency of the stents is difficult to evaluate in these heavily calcified vessels. Electronically signed by Robert Colorado 03-31-2025 9:04 PM PG Care Time/CCT Total # of Minutes Spent Total Time Spent with Patient: Total time spent is greater than 50% in coordination of care (as documented) at patient's floor/unit and/or counseling patient: Coding Level of Care Code 50539 INT INP/OBS CARE MIN Diagnoses Postoperative infection T81.40XA Perineal fistula N36.0 Peripheral arterial disease I73.9 Coronary artery disease involving [place] coronary artery of [place] heart without angina pectoris I25.10 Associated angina: without angina Coronary Disease-Associated Artery/Lesion type: [place] artery [place] vs. transplanted heart: [place] heart Diabetes type 1, controlled E10.9 Hypertension, unspecified type I10 Hypertension type: unspecified Dyslipidemia E78.5 CKD stage 3 secondary to diabetes E11.22; N18.30 Hypothyroidism, unspecified type E03.9 Hypothyroidism type: unspecified GERD (gastroesophageal reflux disease) K21.9 BPH (benign prostatic hyperplasia) N40.0 (4) CAD (coronary artery disease) Associated angina: without angina Coronary Disease-Associated Artery/Lesion type: [place] artery [place] vs. transplanted heart: [place] heart Qualified Code(s): I25.10 - Atherosclerotic heart disease of [place] coronary artery without angina pectoris (6) Hypertension Hypertension type: unspecified Qualified Code(s): I10 - Essential (primary) hypertension (9) Hypothyroidism Hypothyroidism type: unspecified Qualified Code(s): E03.9 - Hypothyroidism, unspecified
--- NOTE | 2025-03-31 20:50 | Surgery Consultation ---
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 He does follow with [facility] and a few months back had gone to [place] where he underwent debridement of his wound but otherwise he has been seeing wound nursing for local wound care since. He presented to the emergency department this evening due to concerns of his left AKA wound and he is being admitted to the hospitalist service for his infection. He also underwent CT imaging of his pelvis and was noted to have a left perianal fistula with gas containing fluid collection measuring 9.5x1.5x9.5cm concerning for an abscess. The patient was seen and evaluated at bedside in the emergency department this evening. The wound was inspected and the base of the wound appears pink/red and there was some slight oozing however no significant purulent drainage was appreciated. Patient states he has not noticed any changes of his sacral wound recently and it is currently being packed twice daily with saline soaked Kerlex. At times the wound does spontaneously drain and other times he states the drainage is minimal. For now, recommend continuing local wound care and consulting wound nurses. Will discuss patient's case with attending surgeon, Dr. Shankar, and additional surgical recommendations to follow. History of Present Illness Reason for Consultation: chronic perineal wound History of Present Illness The patient is a 69 year-old male with a PMH of COPD, CAD s/p single vessel bypass in 2016, DM1, Left AKA, right BKA, hypothyroidism, chronic sacral ulcer, PAD, aortic stenosis s/p bioprosthetic valve in 2016 and diverting colostomy. The patient underwent revision of his left AKA roughly [address] Soto and was instructed to come to the emergency department due to concerns of wound dehiscence, purulent drainage, and increased pain and erythema at the surgical site. The patient underwent CT imaging of his pelvis and there was noted to be a left perianal fistula with gas containing fluid collection measuring 9.5x1.5x9.5cm concerning for an abscess and at that time general surgery was consulted for further evaluation. The patient was seen and evaluated at bedside in the emergency department this evening. He is resting comfortably in bed, VSS, and is nontoxic appearing. The patient has had this chronic perineal/sacral wound for the last 2 years and does follow with wound care regularly along with [facility]. The patient states that a few months back he did go to [place] and did did have debridement of his wound but otherwise he has been doing local wound care since. The patient states that he has not noticed any changes of the wound recently. He states that at times the wound does spontaneously drain and other times it's minimal. During his recent hospitalization he was followed by wound care and his wound is being packed twice daily with saline soaked kerlex. Allergies Allergy/AdvReac Type Severity Reaction Status Date / Time No Known Allergies Allergy Unknown Verified 02/14/25 11:26 Home Medications Medication Instructions Recorded Confirmed Type aspirin 81 mg tablet,delayed 81 mg PO QAM 05/04/21 03/31/25 History release (Mohit Low Dose Aspirin) Replacement Brakes for Manual #1 ea 05/12/23 01/26/25 Rx Wheelchair Mattress (Air or other) #1 ea 06/19/23 01/26/25 Rx Wheelchair (Manual) (Manual #1 ea 06/19/23 01/26/25 Rx Wheelchair) simethicone 125 mg capsule (Gas-X 125 mg PO DAILY PRN abdominal 07/24/23 03/31/25 Rx Extra Strength) distention #14 caps ondansetron 4 mg disintegrating 4 mg PO Q6H PRN nausea and 07/25/23 03/31/25 Rx tablet vomiting #30 tabs 10 incches wedge pillow #1 ea 11/01/23 01/26/25 Rx acetaminophen 500 mg tablet 500 mg PO Q8 PRN Pain 02/22/24 03/31/25 History (Tylenol Extra Strength) AQUACEL AG #30 ea 03/12/24 01/26/25 Rx Optifoam #30 ea 03/12/24 01/26/25 Rx levocetirizine 5 mg tablet 5 mg PO QPM #90 tabs 05/09/24 03/31/25 Rx ferrous sulfate 325 mg (65 mg 325 mg PO BID #60 tabs 06/24/24 03/31/25 Rx iron) tablet,delayed release chlorthalidone 25 mg tablet 25 mg PO QAM #90 tabs 07/24/24 03/31/25 Rx ROHO Cushion #1 ea 08/23/24 01/26/25 Rx insulin aspart U-100 100 unit/mL See Rx Instructions continuous 09/10/24 03/31/25 Rx subcutaneous solution (Novolog subcutaneous infusion CONTINOUS U-100 Insulin aspart) #60 mL clopidogrel 75 mg tablet (Plavix) 75 mg PO QAM #90 tabs 10/22/24 03/31/25 Rx folic acid 1 mg tablet 1 mg PO QAM #90 tabs 10/22/24 03/31/25 Rx metoprolol tartrate 25 mg tablet 12.5 mg (1/2 x 25 mg) PO BID #90 11/15/24 03/31/25 Rx tabs atorvastatin 80 mg tablet (Lipitor) 80 mg PO HS #90 tabs 11/29/24 03/31/25 Rx calcitriol 0.25 mcg capsule 0.25 mcg PO QAM #30 caps 01/22/25 03/31/25 Rx pantoprazole 40 mg tablet,delayed 40 mg PO QAM 01/26/25 03/31/25 History release (Protonix) tamsulosin 0.4 mg capsule 0.4 mg PO QAM 01/26/25 03/31/25 History trazodone 100 mg tablet 100 mg PO HS PRN Sleep 01/26/25 03/31/25 History ibuprofen 200 mg tablet 400 mg PO Q6H PRN Pain 02/06/25 03/31/25 History levothyroxine 200 mcg tablet 200 mcg PO QAM 02/06/25 03/31/25 History oxycodone 5 mg tablet 5 - 10 mg PO Q6H PRN pain 02/06/25 03/31/25 History potassium chloride 20 mEq 20 meq PO BID #180 tabs 03/25/25 03/31/25 Rx tablet,extended release magic mix 1 applic topical BID 03/31/25 03/31/25 History Patient History Medical History (Updated 03/31/25 @ 20:44 by Tyree Perry DO) CKD stage 3 secondary to diabetes PAD (peripheral artery disease) s/p B/L LE stenting and LLE bypass Ambulatory dysfunction WC bound Colostomy in place Insulin pump in place Chronic wound left groin area, recently under anesthesia thru [facility] 01/09/25, for evaluation of his wound, "which surgeon stated no surgical intervention necessary at that time" History of aortic stenosis s/p porcine valve replacement (2015) + CABG x1 Follows with [facility] cardio Diabetic peripheral neuropathy associated with type 1 diabetes mellitus History of COPD History of BPH Hx of chronic kidney disease Above knee amputation of left lower extremity History of nephrolithiasis Gastroparesis Anemia 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) Hx MRSA infection 01/2022 (left heel) History of colon polyps History of Clostridium difficile infection s/p treatment (2020) Below-knee amputation of right lower extremity Clostridium difficile colitis hx, 2020, resolved DVT prophylaxis hx Folate deficiency GERD (gastroesophageal reflux disease) Dyslipidemia hx Hypertension Hypothyroidism Vitamin D deficiency CAD (coronary artery disease) s/p CABG (SVG to PDA) x 1 (2015) Surgical History (Updated 02/27/25 @ 00:07 by Background Daemon) History of surgery EUA, debridement of perineal cyst 01/09/25: under GA at [facility]; no issues reported History of below-knee amputation of right lower extremity History of left above knee amputation 07/2022 History of intestinal surgery (2022) w/creation colostomy, [facility] Hx laparoscopic cholecystectomy (07/17/23) Robotic assisted Laparoscopic Cholecystectomy(Not Applicable) - Markus Dawson, DO, FACS Hx of cystoscopy w/stent placement; stent then removed History of skin graft Split Thickness Skin Graft of Left Lateral Ankle (11/18/20): LMA#5, atraumatic x1 at [facility] Hx of surgical procedure Left Leg Wound Debridement and Irrigation History of arterial bypass of lower extremity Left femoral to PT composite bypass graft (06/2020), Right femoral to PT bypass graft 01/2021, Removal right fem-pop bypass 03/2021 (graft occluded) History of carpal tunnel release R/L History of tooth extraction History of tonsillectomy History of myringotomy w/tubes bilat. S/P femoropopliteal bypass surgery Right fem-pop bypass graft (01/19/21): Grade 2 view, MAC 3.0, ETT 8.0 at [facility] Left femoral to PT composite bypass graft (06/2020) History of cardiac cath x2, most recent 2016 > no stents (subsequent CABG with AVR in 2016); [facility] History of umbilical hernia repair S/P insertion of iliac artery stent B/L iliac stent placement (2014) H/O endarterectomy R common femoral (11/2018) History of open reduction and internal fixation (ORIF) procedure LLE (1970s) History of colonoscopy History of esophagogastroduodenoscopy (EGD) H/O cataract extraction R/L History of ankle surgery left ankle, repair left ankle, hardware removed History of coronary artery bypass graft CABG x1 + AVR (2015) 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 Left transmetatarsal amputation (11/23/21): LMA# 5.0 at [facility]. No issues noted per post-op anesthesia progress note. HX 1 SX TO REMOVE ALL TOES LEFT FOOT NOVEMBER 2021 Family History Brother Family history of diabetes mellitus Sister Family history of diabetes mellitus Mother Family history of diabetes mellitus Grandmother (Maternal) Family history of diabetes mellitus Uncle Family hx of colon cancer Colorectal cancer Father Family history of esophageal cancer Sister Family history of diabetes mellitus Other No family history of adverse response to anesthesia Denies family history of Ovarian cancer Prostate cancer Myocardial infarction Breast cancer Social History Smoking Status: Never smoker Tobacco Type: Cigarettes and Smokeless Tobacco (Dip or Chew) Age Started Using Tobacco: 15; Age Quit Using Tobacco: 53; packs per day: 1; Cigarettes Per Day: 20; Second Hand Exposure: No; Do You Dip or Chew Tobacco: No (quit pouches years ago); Hx Alcohol Use: Yes Alcohol type: beer Alcohol Intake Frequency: Monthly or Less Hx Substance Use: No Preferred Language: Tajik Communication Ability: Effective Visual Impairment: No Limitations Hearing Ability: Hard of Hearing 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 (3049-2042, roughly), protein drinks caffeine: Yes (coffee, rarely ) during the past year weight has: remained stable Dental Care, Regularly: No Seatbelt Use: always Sunscreen Use: No Gender Identity: Male Assistive Devices: Hospital Bed, Walker and Wheelchair Review of Systems Constitutional: no fever, no chills and no weakness Respiratory: no chest congestion and no dyspnea Cardiovascular: no chest pain, no palpitations and no syncope Gastrointestinal: no abdominal pain, no nausea and no vomiting Genitourinary: no dysuria or no hematuria Integumentary: as per Subjective / HPI and + wounds (Chronic sacral/perineal wound. LLE AKA surgical site wound infection ) Physical Exam Constitutional: WD/WN, vitals as above Respiratory: normal respiratory effort, lungs clear to auscultation Cardiovascular: Rate/Rhythm: regular rate Gastrointestinal (Abdomen): normal bowel sounds, soft, nontender, no hepatosplenomegaly Musculoskeletal: Left sided AKA - wound infection with dehiscence and some purulent drainage dara reciated Right sided BKA Skin: Patient's perineum was examined with the nurse present at bedside. +Large open wound in the perineum/sacral (roughly 12cm in length) with pink/red tissue at the base of the wound and some slight oozing appreciated. Kerlex dressing was removed (some purulent drainage on dressing) and re-applied. + +Open wound (roughly 3cm) at the left gr oin region Psychiatric: A+Ox3, euthymic affect Results & Data Vital Signs (Past 12 Hours) Vital Signs Temp Pulse Pulse Resp BP BP Pulse Ox 03/31/25 19:00 71 13 96 03/31/25 18:44 107 H 03/31/25 18:15 110/54 L 03/31/25 18:12 87 20 95 03/31/25 17:17 76 20 97 03/31/25 16:24 75 20 98 03/31/25 16:24 136/59 L 03/31/25 16:24 36.8 C 75 20 136/59 L 97 O2 Del Method 03/31/25 19:00 Room Air 03/31/25 18:44 03/31/25 18:15 03/31/25 18:12 Room Air 03/31/25 17:17 Room Air 03/31/25 16:24 Room Air 03/31/25 16:24 03/31/25 16:24 Room Air Diagnostic Findings CT PELVIS: TECHNIQUE: Contrast-enhanced CT examination of the pelvis was performed. IV CONTRAST: 100 mL of OMNIPAQUE 300. HISTORY: Pelvic pain COMPARISON: CT abdomen pelvis August 31, 2023 FINDINGS: URINARY BLADDER: Inflamed with moderate wall thickening. There are 3 mm calcific densities over the dependent area of the uterine bladder posteriorly which may represent urine and bladder calculi. REPRODUCTIVE ORGANS: Mildly enlarged prostate. AORTA and ILIAC ARTERIES: No aneurysmal dilatation of the visualized portion of the aorta or iliac arteries seen. Extensive atherosclerosis with severe stenoses. LYMPH NODES: No pelvic lymph adenopathy identified. GASTROINTESTINAL: The visualized bowel is normal in caliber. There is a diverting loop colostomy in the left lower quadrant. PERITONEUM: No ascites is seen. No peritoneal masses seen. PELVIC WALL: No hernia is identified. There is a left perianal fistula with a thick walled gas containing fluid structure measuring 9.5 x 1.5 x 9.5 cm (AP x TV x CC). No significant inflammatory changes noted in the inguinal regions bilaterally with redemonstrated scarring materials from vascular surgeries/procedures in these areas. At the site of left above-knee amputation, there are mild phlegmonous/inflammatory changes of the subcutaneous fat without drainable/organized fluid collection identified. There are ulcerative skin defect in this area. Extensive atherosclerosis and bypass surgeries are noted again in the inguinal regions and in the partially included lower extremities. OSSEOUS STRUCTURES: No acute or suspicious process identified. 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 No significant inflammatory changes are noted in the inguinal regions bilaterally where there are redemonstrated postsurgical changes from bypass creations. Similar scarring is seen in this area compared to the previous examination from 2022. At the site of left above-knee amputation, there are mild phlegmonous/inflammatory changes of the subcutaneous fat without drainable/organized fluid collection identified. There are ulcerative skin defect in this area. Inflammatory changes of the bladder suggesting cystitis. PG Care Time/CCT Total # of Minutes Spent Total Time Spent with Patient: Total time spent is greater than 50% in coordination of care (as documented) at patient's floor/unit and/or counseling patient: [place] [address] INT INP/OBS CARE 1/40MIN Patient Type New History Problem Focused Exam Problem Focused Medical Decision Making Straight Forward Diagnoses Perineal fistula N36.0
[2025-03-31] MEDS: ONDANSETRON INJ 2 MG/ML 2 ML VIAL IV STA (20:54)
--- NOTE | 2025-03-31 21:05 | CT Scan Report ---
CT of the pelvis and left lower extremity with contrast Technique: Postcontrast axial images of the pelvis and left lower extremity. Coronal and sagittal reformatted images made available for review No comparison Findings: Postoperative changes right common femoral endarterectomy with a prosthetic graft extending along the medial aspect of the thigh. This is not opacified with contrast on this exam is likely due to occluded. Postoperative changes left above-knee amputation with prior left common femoral artery endarterectomy and bypass graft. Prior left SFA stenting who was also noted and occluded. Subtle inflammatory changes about the anastomosis of the left above-knee amputation stump without defined fluid collection. The profunda femoris artery does not appear to opacify on this exam. Postoperative changes kissing iliac stents with dense calcification of the iliac arteries bilaterally. Postoperative changes partial colectomy with left lower quadrant colostomy. Voca ventral wall thickening of the urinary bladder which is under distended. Findings may represent cystitis. Bladder calcification present. Bone windows demonstrate no focal abnormality Impression: Occlusion of the right lower extremity bypass graft. Extensive occlusion of the left profunda femoris with only minimal filling of the left common femoral artery. Left superficial femoral artery is also occluded. Postoperative changes left above-knee amputation with subtle inflammatory changes about the incision. No defined rim-enhancing fluid collection identified on this exam. Findings may have been a cellulitis within the same Postoperative changes kissing iliac stents. The patency of the stents is difficult to evaluate in these heavily calcified vessels. Electronically signed by Robert Colorado 03-31-2025 9:04 PM
[2025-03-31] MEDS ORDERED: DEXTROSE 50% 50 ML SYRINGE IV PRN ×2 (21:51→22:06)
[2025-03-31] MEDS ORDERED: DOCUSATE SODIUM 100 MG CAP PO PRN (21:51)
[2025-03-31] MEDS ORDERED: CARBOHYDRATES FOR HYPOGLYCEMIA PO PRN ×2 (21:51→22:06)
[2025-03-31] MEDS ORDERED: INSULIN ASPART PER UNIT CHARGE SC SCH (21:51)
[2025-03-31] MEDS ORDERED: MoRPHine SULFATE 2 MG/ML CARP IV PRN ×2 (21:51)
[2025-03-31] MEDS ORDERED: GLUCOSE 10 TAB/TUBE PO PRN ×2 (21:51→22:06)
[2025-03-31] MEDS ORDERED: GLUCOSE 40% GEL 15 GM TUBE PO PRN ×2 (21:51→22:06)
[2025-03-31] MEDS ORDERED: GLUCAGON FOR INJ 1 MG VIAL SQ PRN ×2 (21:51→22:06)
[2025-03-31] MEDS ORDERED: INSULIN ASPART 100 UNITS/ML VIAL SC PRN (22:06)
[2025-03-31] MEDS: LACTATED RINGER'S 1,000 ML IV SCH (22:23)
[2025-03-31] MEDS: PIPERACILLIN/TAZOBACTAM 4.5 GM/100 ML BAG IV SCH (22:23)
[2025-03-31] MEDS: ONDANSETRON INJ 2 MG/ML 2 ML VIAL IV PRN (23:12)
[2025-03-31] MEDS: METOPROLOL TARTRATE 25 MG TAB PO SCH (23:13)
[2025-04-01] MEDS: DAPTOmycin 400 MG in SYRINGE 0 ML IV SCH (02:49)
[2025-04-01] MEDS: LEVOTHYROXINE SODIUM 200 MCG TABLET PO SCH (06:07)
[2025-04-01 06:47] LABS: Hematocrit (blood only) 31.1 % (42.0-52.0); Hemoglobin 9.5 g/dl (14.0-18.0); Mean Corpuscular Hemoglobin 25.0 pg (25.0-34.0); Mean Corpuscular Volume 81.8 fL (80.0-100.0); Platelet Count 274 K/uL (130-400); RDW Standard Deviation 41.7 fL (36.4-46.3); Red Blood Count 3.80 M/uL (4.70-6.10); White Blood Count 12.54 K/ul (4.8-10.8)
[2025-04-01 07:21] LABS: Anion Gap 8.0 (3-11); Blood Urea Nitrogen 21.0 mg/dl (6-23); Calcium 8.3 mg/dl (8.6-10.3); Carbon Dioxide 22.0 mmol/L (21-32); Chloride 107.0 mmol/L (98-107); Creatinine Clr Calc Pharmacy 84.1 ml/min; Glucose 170.0 mg/dl (70-99(Fasting)); Potassium 4.0 mmol/L (3.5-5.1); Sodium 137.0 mmol/L (136-145)
[2025-04-01] MEDS: Continuous Glucose Monitor SCH (07:30)
[2025-04-01] MEDS: INSULIN, Rapid-Acting PUMP SC SCH (08:00)
--- NOTE | 2025-04-01 08:49 | Surgery Progress Note ---
Date of Service April 01, 2025 Assessment & Plan (1) Postprocedural wound infection: Plan: The CT scan images and results were personally viewed and interpreted by myself This is a chronic issue for him and the area is already filleted open He is also following with colorectal surgery in [place] as well as recently wound care in [place] for this There are no acute surgical indications in this patient We will have the wound care nurses see him while he is here Surgical sign off at this time, please call with any questions or concerns (2) Perineal fistula: Admission and Anticipated Discharge Date Admission Date: March 31, 2025 Subjective Patient seen and examined. No acute events overnight. Afebrile. States his pain at his buttock wound is at baseline. Review of Systems Constitutional: no fever, no chills and no weakness Respiratory: no chest congestion and no dyspnea Cardiovascular: no chest pain, no palpitations and no syncope Gastrointestinal: no abdominal pain, no nausea and no vomiting Genitourinary: no dysuria or no hematuria Integumentary: + skin ulcer, + sores and + wounds Hematologic / Lymphatic: no easy bleeding and no easy bruising Physical Exam Constitutional: WD/WN, vitals as above Respiratory: normal respiratory effort, lungs clear to auscultation Cardiovascular: RRR, no murmur, no edema Gastrointestinal (Abdomen): normal bowel sounds, soft, nontender, no hepatosplenomegaly Musculoskeletal: no cyanosis or clubbing, extremities motor strength 5/5 Skin: no rashes, warm and dry Unable to evaluate wound due to patient discomfort Neurologic: PERRL, EOMI, accommodation nl, no face palsy, no dysarthria Psychiatric: A+Ox3, euthymic affect Results & Data Vital Signs (Past 12 Hours) Vital Signs Temp Pulse Pulse Resp BP BP Pulse Ox 04/01/25 08:23 37.0 C 81 18 131/74 96 04/01/25 07:37 77 04/01/25 04:48 36.9 C 81 16 108/62 93 04/01/25 04:32 37.2 C 82 16 97/52 L 91 03/31/25 23:40 36.5 C 103 H 22 160/74 H 94 03/31/25 22:13 36.5 C 103 H 22 160/74 H 94 03/31/25 21:44 99 H 03/31/25 21:09 80 21 178/86 H 95 O2 Del Method 04/01/25 08:23 Room Air 04/01/25 07:37 04/01/25 04:48 Room Air 04/01/25 04:32 Room Air 03/31/25 23:40 Room Air 03/31/25 22:13 Room Air 03/31/25 21:44 03/31/25 21:09 Room Air PG Care Time/CCT Total # of Minutes Spent Total Time Spent with Patient: Total time spent is greater than 50% in coordination of care (as documented) at patient's floor/unit and/or counseling patient: Coding Level of Care Code 67066 SUB INP/OBS CARE 10/05MIN Diagnoses Postprocedural wound infection T81.49XA Perineal fistula N36.0
--- NOTE | 2025-04-01 11:12 | Orthopedic Progress Note ---
Date of Service April 01, 2025 Assessment & Plan (1) Postprocedural wound infection: (2) Wound of left lower extremity: Plan Patient with postoperative infection s/p left AKA revision on 02/14/25. Gram stain showed many WBCs and few gram-positive cocci in clusters. Preliminary culture is positive for Staphylococcus aureus, awaiting sensitivities. Daptomycin currently. Reviewed with Dr. Bergeron who will be up to see the patient in between clinic today. Plan is to take the patient to the OR tomorrow morning at 7 AM as an add-on case for I&D possible revision AKA. Spoke with Dr. Perrin who feels that the patient is medically optimized. Informed consent completed and signed by the patient, available in chart. Patient can eat today. He is n.p.o. after midnight tonight. Continue to hold aspirin and plavix. Pain management per primary service. Admission and Anticipated Discharge Date Admission Date: March 31, 2025 Supervising Physician Co-Signing Physician Notes I saw and examined the patient. I agree with the above findings and my plan of care, I discussed with my PA. The pictures in the note accurately depict the wound. Discussed options and recommended I&D L AKA stump, possible wound vac placement. Discussed the risks and benefits and patient agreed. NPO after MN. Continue pain control & Abx. Jose Velasquez is seen in bed today. He thinks that his left leg stump feels a little bit better today. He denies any fevers or chills. Physical Exam 2 Constitutional: Resting comfortably in bed. No distress. Cardiovascular: Left lower extremity stump is well-perfused Musculoskeletal: Left lower extremity: Scabbing and erythema along the middle lateral third of the prior incision. Able to express a drop of pus through part of the incision that has dehisced. There is some tenderness locally in this area. Thigh is otherwise soft and nontender. no fluctuance or induration noted. Skin: [place], warm, dry Results & Data Vital Signs (Past 12 Hours) Vital Signs Temp Pulse Pulse Resp BP Pulse Ox O2 Del Method 04/01/25 08:23 98.6 F 81 18 131/74 96 Room Air 04/01/25 07:37 77 04/01/25 04:48 98.4 F 81 16 108/62 93 Room Air 04/01/25 04:32 99.0 F 82 16 97/52 L 91 Room Air 03/31/25 23:40 97.7 F 103 H 22 160/74 H 94 Room Air Laboratory Results 03/31/25 16:54 Gram Stain - Final Leg,Left Aerobic and Anaerobic Culture - Preliminary Staphylococcus aureus 03/31/25 16:30 Aerobic Blood Culture - Pending Blood Anaerobic Blood Culture - Pending 03/31/25 16:30 Aerobic Blood Culture - Pending Blood Anaerobic Blood Culture - Pending 04/01/25 04/01/25 03/31/25 06:33 06:26 19:51 WBC 12.54 H RBC 3.80 L Hgb 9.5 L Hct 31.1 L MCV 81.8 MCH 25.0 MCHC 30.5 L RDW Std Deviation 41.7 RDW Coeff of Chan 14.0 Plt Count 274 MPV 10.0 Immature Gran % (Auto) Neut % (Auto) Lymph % (Auto) [place] % (Auto) Eos % (Auto) Baso % (Auto) Neut # (Auto) Lymph # (Auto) [place] # (Auto) Eos # (Auto) Baso # (Auto) Immature Gran # (Auto) Sodium 137 Potassium 4.0 Chloride 107 Carbon Dioxide 22 Anion Gap 8 BUN 21 Creatinine 0.77 Est Cr Clr Drug Dosing 84.1 eGFR 98.12 BUN/Creatinine Ratio 27.3 H Glucose 170 H POC Glucose 167 H Lactate Calcium 8.3 L Magnesium Total Bilirubin Direct Bilirubin AST ALT Alkaline Phosphatase Troponin I High Sens Total Protein Albumin Procalcitonin Urine Color Yellow Urine Appearance Clear Urine pH 6.0 Ur Specific [place] 1.045 H Urine Protein Negative Urine Glucose (UA) Negative Urine Ketones Negative Urine Blood Negative Urine Nitrite Negative Urine Bilirubin Negative Urine Urobilinogen Negative Ur Leukocyte Esterase Negative Urine Comment 03/31/25 16:30 WBC 9.34 RBC 3.90 L Hgb 9.9 L Hct 31.9 L MCV 81.8 MCH 25.4 MCHC 31.0 L RDW Std Deviation 41.3 RDW Coeff of Chan 13.8 Plt Count 282 MPV 10.1 Immature Gran % (Auto) 0.3 Neut % (Auto) 66.0 Lymph % (Auto) 16.2 [place] % (Auto) 10.8 Eos % (Auto) 6.1 Baso % (Auto) 0.6 Neut # (Auto) 6.16 Lymph # (Auto) 1.51 [place] # (Auto) 1.01 H Eos # (Auto) 0.57 H Baso # (Auto) 0.06 Immature Gran # (Auto) 0.03 Sodium 139 Potassium 4.1 Chloride 105 Carbon Dioxide 28 Anion Gap 6 BUN 20 Creatinine 0.67 Est Cr Clr Drug Dosing 96.8 eGFR 102.34 BUN/Creatinine Ratio 29.9 H Glucose 171 H POC Glucose Lactate 1.4 Calcium 9.0 Magnesium 1.7 Total Bilirubin 0.3 Direct Bilirubin 0.1 AST 12 L ALT 12 Alkaline Phosphatase 121 H Troponin I High Sens 6.7 Total Protein 6.9 Albumin 3.1 L Procalcitonin 0.08 Urine Color Urine Appearance Urine pH Ur Specific [place] Urine Protein Urine Glucose (UA) Urine Ketones Urine Blood Urine Nitrite Urine Bilirubin Urine Urobilinogen Ur Leukocyte Esterase Urine Comment Diagnostic Findings CT of the pelvis and left lower extremity with contrast Technique: Postcontrast axial images of the pelvis and left lower extremity. Coronal and sagittal reformatted images made available for review No comparison Findings: Postoperative changes right common femoral endarterectomy with a prosthetic graft extending along the medial aspect of the thigh. This is not opacified with contrast on this exam is likely due to occluded. Postoperative changes left above-knee amputation with prior left common femoral artery endarterectomy and bypass graft. Prior left SFA stenting who was also noted and occluded. Subtle inflammatory changes about the anastomosis of the left above-knee amputation stump without defined fluid collection. The profunda femoris artery does not appear to opacify on this exam. Postoperative changes kissing iliac stents with dense calcification of the iliac arteries bilaterally. Postoperative changes partial colectomy with left lower quadrant colostomy. [place] ventral wall thickening of the urinary bladder which is under distended. Findings may represent cystitis. Bladder calcification present. Bone windows demonstrate no focal abnormality Impression: Occlusion of the right lower extremity bypass graft. Extensive occlusion of the left profunda femoris with only minimal filling of the left common femoral artery. Left superficial femoral artery is also occluded. Postoperative changes left above-knee amputation with subtle inflammatory changes about the incision. No defined rim-enhancing fluid collection identified on this exam. Findings may have been a cellulitis within the same Postoperative changes kissing iliac stents. The patency of the stents is difficult to evaluate in these heavily calcified vessels. CT PELVIS: TECHNIQUE: Contrast-enhanced CT examination of the pelvis was performed. IV CONTRAST: 100 mL of OMNIPAQUE 300. HISTORY: Pelvic pain COMPARISON: CT abdomen pelvis August 31, 2023 FINDINGS: URINARY BLADDER: Inflamed with moderate wall thickening. There are 3 mm calcific densities over the dependent area of the uterine bladder posteriorly which may represent urine and bladder calculi. REPRODUCTIVE ORGANS: Mildly enlarged prostate. AORTA and ILIAC ARTERIES: No aneurysmal dilatation of the visualized portion of the aorta or iliac arteries seen. Extensive atherosclerosis with severe stenoses. LYMPH NODES: No pelvic lymph adenopathy identified. GASTROINTESTINAL: The visualized bowel is normal in caliber. There is a diverting loop colostomy in the left lower quadrant. PERITONEUM: No ascites is seen. No peritoneal masses seen. PELVIC WALL: No hernia is identified. There is a left perianal fistula with a thick walled gas containing fluid structure measuring 9.5 x 1.5 x 9.5 cm (AP x TV x CC). No significant inflammatory changes noted in the inguinal regions bilaterally with redemonstrated scarring materials from vascular surgeries/procedures in these areas. At the site of left above-knee amputation, there are mild phlegmonous/inflammatory changes of the subcutaneous fat without drainable/organized fluid collection identified. There are ulcerative skin defect in this area. Extensive atherosclerosis and bypass surgeries are noted again in the inguinal regions and in the partially included lower extremities. OSSEOUS STRUCTURES: No acute or suspicious process identified. 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 No significant inflammatory changes are noted in the inguinal regions bilaterally where there are redemonstrated postsurgical changes from bypass creations. Similar scarring is seen in this area compared to the previous examination from 2022. At the site of left above-knee amputation, there are mild phlegmonous/inflammatory changes of the subcutaneous fat without drainable/organized fluid collection identified. There are ulcerative skin defect in this area. Inflammatory changes of the bladder suggesting cystitis.
--- NOTE | 2025-04-01 12:19 | Hospitalist Progress Note ---
Date of Service April 01, 2025 Assessment & Plan (1) Postoperative infection: (2) Perineal fistula: (3) Peripheral arterial disease: (4) CAD (coronary artery disease): (5) Diabetes type 1, controlled: (6) Hypertension: (7) Dyslipidemia: (8) CKD stage 3 secondary to diabetes: (9) Hypothyroidism: (10) GERD (gastroesophageal reflux disease): (11) BPH (benign prostatic hyperplasia): Plan 69yo male with CKD, HTN, HLP, CAD, PAD s/p right BKA and left AKA with recent revision 02/14/25 presenting with increased redness, warmth, swelling of the surgical site of left AKA revision. Some wound dehiscence with minimal drainage. 1.Post-operative infection -Wound care daily -wound cultures growing staph aureus, sensitivity pending -Antibiotic coverage with Daptomycin and Zosyn -Orthopedic surgery consultation appreciated, plan is for OR tomorrow for I and D and possible revision -Will keep patient NPO after midnight -He is medically optimized for surgery #Buttock wound/perineal fistula with possible abscess - ongoing issue for which patient follows with colorectal surgery at [facility]. -He has been seen by our surgical team for evaluation as well, conservative mgt for now -Turn and position q 2 hours -Wound care daily and PRN -Specialty bed appreciated #Colostomy in place -Routine management #Diabetes - overall well controlled. Last WfxH6H=8.6 on 01/24/25 -Patient may use his own insulin pump and continuous glucose monitoring -Hypoglycemia protocols in place #CAD/PAD -Continue ASA 81mg po daily -Continue Metoprolol -Hold Atorvastatin while on Daptomycin #Hypertension -Hold Chlorthalidone for now #Hyperlipidemia -Hold Atorvastatin while on Daptomycin #Hypothyroidism -Continue Synthroid 200mcg po daily -Hold Plavix 75mg po daily #GERD -Continue PRotonix 40mg po daily #BPH -Continue Flomax 0.4mg po daily Admission and Anticipated Discharge Date Admission Date: March 31, 2025 Subjective Patient seen and examined, plan is for OR tomorrow Review of Systems Review of Systems: All systems reviewed are negative, apart from the ones contained in the history. Physical Exam Physical Exam: The patient is awake, alert and oriented 3, well developed and well nourished, normocephalic and atraumatic, lying in bed and in no acute distress. HEENT--PERRL, EOMI, mucous membranes and oropharynx mildly dry Neck--supple. No JVD. No bruits. Thyroid normal, trachea midline, no adenopathy. Heart--normal S1 and S2. No murmurs, rubs or gallops. Lungs--clear bilaterally, no respiratory distress, no accessory muscle use. Abdomen--normal bowel sounds and soft. colostomy Extremities--left AKA, right BKA Dermatologic--normal skin turgor, normal color, no abnormal lymph nodes, no rash. Neurologic--cranial nerves II through XII grossly intact. Rheumatologic--normal range of motion. Psychiatric--normal affect. Results & Data Results & Data Vital Signs (Past 12 Hours) Vital Signs Temp Pulse Pulse Resp BP Pulse Ox O2 Del Method 04/01/25 12:01 98.6 F 70 18 111/68 94 Room Air 04/01/25 08:23 98.6 F 81 18 131/74 96 Room Air 04/01/25 07:37 77 04/01/25 04:48 98.4 F 81 16 108/62 93 Room Air 04/01/25 04:32 99.0 F 82 16 97/52 L 91 Room Air PG Care Time/CCT Total # of Minutes Spent Total Time Spent with Patient: Total time spent is greater than 50% in coordination of care (as documented) at patient's floor/unit and/or counseling patient: Coding Level of Care Code 35802 SUB INP/OBS CARE 2/35MIN Diagnoses Postoperative infection T81.40XA Perineal fistula N36.0 Peripheral arterial disease I73.9 Coronary artery disease involving hoopa coronary artery of hoopa heart without angina pectoris I25.10 Coronary Disease-Associated Artery/Lesion type: hoopa artery [place] vs. transplanted heart: hoopa heart Associated angina: without angina Diabetes type 1, controlled E10.9 Hypertension, unspecified type I10 Hypertension type: unspecified Dyslipidemia E78.5 CKD stage 3 secondary to diabetes E11.22; N18.30 Hypothyroidism, unspecified type E03.9 Hypothyroidism type: unspecified GERD (gastroesophageal reflux disease) K21.9 BPH (benign prostatic hyperplasia) N40.0 Time Spent (min) 35 (4) CAD (coronary artery disease) Coronary Disease-Associated Artery/Lesion type: [place] artery [place] vs. transplanted heart: hoopa heart Associated angina: without angina Qualified Code(s): I25.10 - Atherosclerotic heart disease of hoopa coronary artery without angina pectoris (6) Hypertension Hypertension type: unspecified Qualified Code(s): I10 - Essential (primary) hypertension (9) Hypothyroidism Hypothyroidism type: unspecified Qualified Code(s): E03.9 - Hypothyroidism, unspecified
[2025-04-01] MEDS: CALCITRIOL 0.25 MCG CAPSULE PO SCH (15:37)
[2025-04-01] MEDS: ASPIRIN 81 MG ECTAB PO SCH (15:37)
[2025-04-01] MEDS: TAMSULOSIN HCL 0.4 MG CAP PO SCH (15:37)
[2025-04-02] MEDS ORDERED: PROPOFOL IV EMULSION 10 MG/ML 20 ML VIAL IV ONE (06:39)
[2025-04-02] MEDS ORDERED: ONDANSETRON INJ 2 MG/ML 2 ML VIAL ONE (06:39)
[2025-04-02] MEDS ORDERED: MIDAZOLAM HCL 1 MG/ML 2ML VIAL ONE (06:39)
[2025-04-02] MEDS: LACTATED RINGER'S 1,000 ML IV SCH (06:40)
--- NOTE | 2025-04-02 06:46 | Orthopedic Progress Note ---
Date of Service April 02, 2025 Assessment & Plan (1) Postprocedural wound infection: (2) Wound of left lower extremity: Plan: IMPRESSION: Postoperative infection s/p left AKA revision on 02/14/25. Gram stain showed many WBCs and few gram-positive cocci in clusters. Preliminary culture is positive for Staphylococcus aureus, awaiting sensitivities. PLAN: Continue IV Abx: Daptomycin & Piperacillin. OR today for I&D possible revision AKA, possible wound vac. Patient is medically optimized. Informed consent completed and signed by the patient, available in chart. Has been n.p.o. since midnight. Continue to hold aspirin and plavix. LLE initialled Will Continue care per primary service. Admission and Anticipated Discharge Date Admission Date: March 31, 2025 Subjective Ready for surgery Physical Exam Physical Exam: LLE: Stump wound now open ~6 cm along previously scabbed area, with fibrinous material along the edge. Results & Data Vital Signs (Past 12 Hours) Vital Signs Temp Pulse Pulse Resp BP Pulse Ox O2 Del Method 04/02/25 06:22 36.8 C 70 20 136/59 L 94 Room Air 04/02/25 03:23 36.8 C 72 20 126/78 95 Room Air 04/01/25 23:55 36.9 C 72 20 127/73 95 Room Air 04/01/25 22:06 76 04/01/25 20:55 36.9 C 72 16 127/77 96 Room Air 04/01/25 20:15 Room Air 04/01/25 19:00 36.7 C 72 20 148/80 H 94 Room Air Laboratory Results 04/02/25 04/01/25 04/01/25 Range/Units 06:14 20:07 16:54 WBC (4.8-10.8) K/ul RBC (4.70-6.10) M/uL Hgb (14.0-18.0) g/dl Hct (42.0-52.0) % MCV (80.0-100.0) fL MCH (25.0-34.0) pg MCHC (32.0-36.0) g/dL RDW Std Deviation (36.4-46.3) fL RDW Coeff of Chan (11.5-14.5) % Plt Count (130-400) K/uL MPV (9.4-12.4) fL Sodium (136-145) mmol/L Potassium (3.5-5.1) mmol/L Chloride (98-107) mmol/L Carbon Dioxide (21-32) mmol/L Anion Gap (3-11) BUN (6-23) mg/dl Creatinine (0.6-1.4) mg/dl Est Cr Clr Drug Dosing ml/min eGFR BUN/Creatinine Ratio (10-20) Glucose (70-99(Fasting)) mg/dl POC Glucose 135 H 147 H 179 H (70-99) mg/dl Calcium (8.6-10.3) mg/dl 04/01/25 04/01/25 Range/Units 12:37 06:33 WBC 12.54 H (4.8-10.8) K/ul RBC 3.80 L (4.70-6.10) M/uL Hgb 9.5 L (14.0-18.0) g/dl Hct 31.1 L (42.0-52.0) % MCV 81.8 (80.0-100.0) fL MCH 25.0 (25.0-34.0) pg MCHC 30.5 L (32.0-36.0) g/dL RDW Std Deviation 41.7 (36.4-46.3) fL RDW Coeff of Chan 14.0 (11.5-14.5) % Plt Count 274 (130-400) K/uL MPV 10.0 (9.4-12.4) fL Sodium 137 (136-145) mmol/L Potassium 4.0 (3.5-5.1) mmol/L Chloride 107 (98-107) mmol/L Carbon Dioxide 22 (21-32) mmol/L Anion Gap 8 (3-11) BUN 21 (6-23) mg/dl Creatinine 0.77 (0.6-1.4) mg/dl Est Cr Clr Drug Dosing 84.1 ml/min eGFR 98.12 BUN/Creatinine Ratio 27.3 H (10-20) Glucose 170 H (70-99(Fasting)) mg/dl POC Glucose 146 H (70-99) mg/dl Calcium 8.3 L (8.6-10.3) mg/dl Diagnostic Findings CT of the pelvis and left lower extremity with contrast Technique: Postcontrast axial images of the pelvis and left lower extremity. Coronal and sagittal reformatted images made available for review No comparison Findings: Postoperative changes right common femoral endarterectomy with a prosthetic graft extending along the medial aspect of the thigh. This is not opacified with contrast on this exam is likely due to occluded. Postoperative changes left above-knee amputation with prior left common femoral artery endarterectomy and bypass graft. Prior left SFA stenting who was also noted and occluded. Subtle inflammatory changes about the anastomosis of the left above-knee amputation stump without defined fluid collection. The profunda femoris artery does not appear to opacify on this exam. Postoperative changes kissing iliac stents with dense calcification of the iliac arteries bilaterally. Postoperative changes partial colectomy with left lower quadrant colostomy. [place] ventral wall thickening of the urinary bladder which is under distended. Findings may represent cystitis. Bladder calcification present. Bone windows demonstrate no focal abnormality Impression: Occlusion of the right lower extremity bypass graft. Extensive occlusion of the left profunda femoris with only minimal filling of the left common femoral artery. Left superficial femoral artery is also occluded. Postoperative changes left above-knee amputation with subtle inflammatory changes about the incision. No defined rim-enhancing fluid collection identified on this exam. Findings may have been a cellulitis within the same Postoperative changes kissing iliac stents. The patency of the stents is difficult to evaluate in these heavily calcified vessels. Electronically signed by Robert [place] 03-31-2025 9:04 PM Dictated: 03/31/25 1802 Transcribed: CT PELVIS: TECHNIQUE: Contrast-enhanced CT examination of the pelvis was performed. IV CONTRAST: 100 mL of OMNIPAQUE 300. HISTORY: Pelvic pain COMPARISON: CT abdomen pelvis August 31, 2023 FINDINGS: URINARY BLADDER: Inflamed with moderate wall thickening. There are 3 mm calcific densities over the dependent area of the uterine bladder posteriorly which may represent urine and bladder calculi. REPRODUCTIVE ORGANS: Mildly enlarged prostate. AORTA and ILIAC ARTERIES: No aneurysmal dilatation of the visualized portion of the aorta or iliac arteries seen. Extensive atherosclerosis with severe stenoses. LYMPH NODES: No pelvic lymph adenopathy identified. GASTROINTESTINAL: The visualized bowel is normal in caliber. There is a diverting loop colostomy in the left lower quadrant. PERITONEUM: No ascites is seen. No peritoneal masses seen. PELVIC WALL: No hernia is identified. There is a left perianal fistula with a thick walled gas containing fluid structure measuring 9.5 x 1.5 x 9.5 cm (AP x TV x CC). No significant inflammatory changes noted in the inguinal regions bilaterally with redemonstrated scarring materials from vascular surgeries/procedures in these areas. At the site of left above-knee amputation, there are mild phlegmonous/inflammatory changes of the subcutaneous fat without drainable/organized fluid collection identified. There are ulcerative skin defect in this area. Extensive atherosclerosis and bypass surgeries are noted again in the inguinal regions and in the partially included lower extremities. OSSEOUS STRUCTURES: No acute or suspicious process identified. 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 No significant inflammatory changes are noted in the inguinal regions bilaterally where there are redemonstrated postsurgical changes from bypass creations. Similar scarring is seen in this area compared to the previous examination from 2022. At the site of left above-knee amputation, there are mild phlegmonous/inflammatory changes of the subcutaneous fat without drainable/organized fluid collection identified. There are ulcerative skin defect in this area. Inflammatory changes of the bladder suggesting cystitis. Electronically signed by Samir Osei 03-31-2025 6:43 PM Dictated: 03/31/25 1807 Transcribed:
[2025-04-02] MEDS ORDERED: ONDANSETRON INJ 2 MG/ML 2 ML VIAL IV PRN (06:54)
[2025-04-02] MEDS ORDERED: HYDROmorphone INJ 1 MG/ML SYRINGE IV PRN (06:54)
[2025-04-02] MEDS ORDERED: ATROPINE SULFATE 0.1 MG/ML 10ML SYR IV PRN (06:54)
--- NOTE | 2025-04-02 06:54 | Anesthesiology Consultation ---
Date of Service April 02, 2025 Assessment & Plan ASA ASA4 Proposed Anesthesia Anesthesia Type: General Risk / Benefits Reviewed With: PT / POA / Parent / Guardian, Accepts Plan and Informed Consent Obtained History Surgery Operation Date: 04/02/25 07:00 Proposed Procedures p Left Incision and Drainage of Above Knee Amputation Stump Revison, Possible Wound Vac Placement - Marko Bergeron MD Height/Weight Height: 5 ft Weight: 84.7 kg Allergies Allergy/AdvReac Type Severity Reaction Status Date / Time No Known Allergies Allergy Unknown Verified 04/02/25 06:20 Medications Home Medications Medication Instructions Recorded Confirmed Last Taken aspirin 81 mg tablet,delayed 81 mg PO QAM 05/04/21 03/31/25 03/31/25 release (Mohit Low Dose Aspirin) Replacement Brakes for Manual #1 ea 05/12/23 01/26/25 Unknown Wheelchair Mattress (Air or other) #1 ea 06/19/23 01/26/25 Unknown Wheelchair (Manual) (Manual #1 ea 06/19/23 01/26/25 Unknown Wheelchair) simethicone 125 mg capsule (Gas-X 125 mg PO DAILY PRN abdominal 07/24/23 03/31/25 02/07/25 Extra Strength) distention #14 caps ondansetron 4 mg disintegrating 4 mg PO Q6H PRN nausea and 07/25/23 03/31/25 Unknown tablet vomiting #30 tabs 10 incches wedge pillow #1 ea 11/01/23 01/26/25 Unknown acetaminophen 500 mg tablet 500 mg PO Q8 PRN Pain 02/22/24 03/31/25 02/13/25 (Tylenol Extra Strength) AQUACEL AG #30 ea 03/12/24 01/26/25 Unknown Optifoam #30 ea 03/12/24 01/26/25 Unknown levocetirizine 5 mg tablet 5 mg PO QPM #90 tabs 05/09/24 03/31/25 02/13/25 ferrous sulfate 325 mg (65 mg 325 mg PO BID #60 tabs 06/24/24 03/31/25 03/31/25 iron) tablet,delayed release chlorthalidone 25 mg tablet 25 mg PO QAM #90 tabs 07/24/24 03/31/25 03/31/25 ROHO Cushion #1 ea 08/23/24 01/26/25 Unknown insulin aspart U-100 100 unit/mL See Rx Instructions continuous 09/10/24 03/31/25 02/14/25 subcutaneous solution (Novolog subcutaneous infusion CONTINOUS U-100 Insulin aspart) #60 mL clopidogrel 75 mg tablet (Plavix) 75 mg PO QAM #90 tabs 10/22/24 03/31/25 03/31/25 folic acid 1 mg tablet 1 mg PO QAM #90 tabs 10/22/24 03/31/25 03/31/25 metoprolol tartrate 25 mg tablet 12.5 mg (1/2 x 25 mg) PO BID #90 11/15/24 03/31/25 03/31/25 tabs atorvastatin 80 mg tablet (Lipitor) 80 mg PO HS #90 tabs 11/29/24 03/31/25 02/13/25 calcitriol 0.25 mcg capsule 0.25 mcg PO QAM #30 caps 01/22/25 03/31/25 03/31/25 pantoprazole 40 mg tablet,delayed 40 mg PO QAM 01/26/25 03/31/25 03/31/25 release (Protonix) tamsulosin 0.4 mg capsule 0.4 mg PO QAM 01/26/25 03/31/25 03/31/25 trazodone 100 mg tablet 100 mg PO HS PRN Sleep 01/26/25 03/31/25 Unknown ibuprofen 200 mg tablet 400 mg PO Q6H PRN Pain 02/06/25 03/31/25 02/13/25 levothyroxine 200 mcg tablet 200 mcg PO QAM 02/06/25 03/31/25 03/31/25 oxycodone 5 mg tablet 5 - 10 mg PO Q6H PRN pain 02/06/25 03/31/25 02/14/25 06:00 potassium chloride 20 mEq 20 meq PO BID #180 tabs 03/25/25 03/31/25 03/31/25 tablet,extended release magic mix 1 applic topical BID 03/31/25 03/31/25 Unknown Active Medications Generic Name Dose Route Start Last Admin Trade Name Freq PRN Reason Stop Dose Admin Aspirin 81 mg 04/01/25 09:00 04/01/25 15:37 Aspirin 81 Mg Ectab PO 05/01/25 08:59 81 mg QAM LIZZY Administration Calcitriol 0.25 mcg 04/01/25 09:00 04/01/25 15:37 Calcitriol 0.25 Mcg Capsule PO 05/01/25 08:59 0.25 mcg QAM LIZZY Administration Piperacillin Sod/Tazobactam Sod 4.5 gm in 100 mls @ 25 mls/hr 03/31/25 22:00 04/02/25 05:42 Zosyn IV 04/10/25 21:59 25 mls/hr Q8H LIZZY Administration Protocol Daptomycin 400 mg/ Syringe 8 mls @ 4 mls/min 04/01/25 02:00 04/02/25 02:04 IV 04/08/25 01:59 4 mls/min Q24H LIZZY Administration Protocol Insulin Aspart 0 each 04/01/25 07:30 04/01/25 21:40 Insulin, Rapid-Acting Pump SC 05/01/25 07:29 7.5 each ACHS LIZZY Administration Protocol Levothyroxine Sodium 200 mcg 04/01/25 06:30 04/02/25 06:37 Levothyroxine Sodium 200 Mcg Tablet PO 05/01/25 06:29 Not Given DAILYBB LIZZY Metoprolol Tartrate 12.5 mg 03/31/25 21:51 04/01/25 21:00 Metoprolol Tartrate 25 Mg Tab PO 04/30/25 21:50 12.5 mg BID LIZZY Administration Miscellaneous 0 each 04/01/25 07:30 04/01/25 21:40 Continuous Glucose Monitor N/A 05/01/25 07:29 Not Given ACHS LIZZY Ondansetron HCl 4 mg 03/31/25 21:51 04/01/25 04:12 Ondansetron Inj 2 Mg/Ml 2 Ml Vial IV 04/30/25 21:50 4 mg Q6H PRN Administration Nausea And Vomiting Oxycodone HCl 5 mg 03/31/25 22:57 04/02/25 02:03 Oxycodone Hcl Ir 5 Mg Tab (Immediate Release) PO 04/14/25 22:56 5 mg Q4H PRN Administration 1st line Pain if refuses APAP Pantoprazole Sodium 40 mg 04/01/25 09:00 04/01/25 15:37 Pantoprazole 40 Mg Tab PO 05/01/25 08:59 40 mg QAM LIZZY Administration Tamsulosin HCl 0.4 mg 04/01/25 09:00 04/01/25 15:37 Tamsulosin Hcl 0.4 Mg Cap PO 05/01/25 08:59 0.4 mg QAM LIZZY Administration NPO Date Last Intake of Fluids: 04/01/25 Time Last Intake of Fluids: 22:00 Last Intake of Fluids Comment: sip water with med at 0200 this am Date Last Intake of Solids: 04/01/25 Time Last Intake of Solids: 22:00 Past Medical History Medical History CKD stage 3 secondary to diabetes PAD (peripheral artery disease) s/p B/L LE stenting and LLE bypass Ambulatory dysfunction WC bound Colostomy in place Insulin pump in place Chronic wound left groin area, recently under anesthesia thru [facility] 01/09/25, for evaluation of his wound, "which surgeon stated no surgical intervention necessary at that time" History of aortic stenosis s/p porcine valve replacement (2015) + CABG x1 Follows with [facility] cardio Diabetic peripheral neuropathy associated with type 1 diabetes mellitus History of COPD History of BPH Hx of chronic kidney disease Above knee amputation of left lower extremity History of nephrolithiasis Gastroparesis Anemia 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) Hx MRSA infection 01/2022 (left heel) History of colon polyps History of Clostridium difficile infection s/p treatment (2020) Below-knee amputation of right lower extremity Clostridium difficile colitis hx, 2020, resolved DVT prophylaxis hx Folate deficiency GERD (gastroesophageal reflux disease) Dyslipidemia hx Hypertension Hypothyroidism Vitamin D deficiency CAD (coronary artery disease) s/p CABG (SVG to PDA) x 1 (2015) Exercise / Class Metabolic Activity II 4-5 Yardwork/Stairs/Walk up hill Past Family History Family History Brother Family history of diabetes mellitus Sister Family history of diabetes mellitus Mother Family history of diabetes mellitus Grandmother (Maternal) Family history of diabetes mellitus Uncle Family hx of colon cancer Colorectal cancer Father Family history of esophageal cancer Sister Family history of diabetes mellitus Other No family history of adverse response to anesthesia Denies family history of Ovarian cancer Prostate cancer Myocardial infarction Breast cancer Past Surgical History Surgical History History of surgery EUA, debridement of perineal cyst 01/09/25: under GA at [facility]; no issues reported History of below-knee amputation of right lower extremity History of left above knee amputation 07/2022 History of intestinal surgery (2022) w/[facility] col[facility] Hx laparoscopic cholecystectomy (07/17/23) Robotic assisted Laparoscopic Cholecystectomy(Not Applicable) - Markus Dawson, DO, FACS Hx of cystoscopy w/stent placement; stent then removed History of skin graft Split Thickness Skin Graft of Left Lateral Ankle (11/18/20): LMA#5, atraumatic x1 at [facility] Hx of surgical procedure Left Leg Wound Debridement and Irrigation History of arterial bypass of lower extremity Left femoral to PT composite bypass graft (06/2020), Right femoral to PT bypass graft 01/2021, Removal right fem-pop bypass 03/2021 (graft occluded) History of carpal tunnel release R/L History of tooth extraction History of tonsillectomy History of myringotomy w/tubes bilat. S/P femoropopliteal bypass surgery Right fem-pop bypass graft (01/19/21): Grade 2 view, MAC 3.0, ETT 8.0 at [facility] Left femoral to PT composite bypass graft (06/2020) History of cardiac cath x2, most recent 2016 > no stents (subsequent CABG with AVR in 2015); [facility] History of umbilical hernia repair S/P insertion of iliac artery stent B/L iliac stent placement (2014) H/O endarterectomy R common femoral (11/2018) History of open reduction and internal fixation (ORIF) procedure LLE () History of colonoscopy History of esophagogastroduodenoscopy (EGD) H/O cataract extraction R/L History of ankle surgery left ankle, repair left ankle, hardware removed History of coronary artery bypass graft CABG x1 + AVR (2015) 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 Left transmetatarsal amputation (11/23/21): LMA# 5.0 at [facility]. No issues noted per post-op anesthesia progress note. HX 1 SX TO REMOVE ALL TOES LEFT FOOT NOVEMBER 2021 Past Anesthesia History No Hx of Anesthesia Complications and No Family Hx of Anesthesia Complications History of PONV No Hx of PONV and No Hx of Motion Sickness Social History Smoking Status: Former smoker tobacco type: cigarettes Smoking cigarettes per day: 20 Do You Dip or Chew Tobacco: No Smoking End Date: 2009 Hx Alcohol Use: Yes Alcohol type: beer alcohol intake frequency: holidays/special occasions only Hx Substance Use: No substance use type: does not use Review of Systems denies fever/cough/ colds/ chest pain/ SOB/ KIKO denies KIKO Physical Exam Vital Signs Last Vital Signs Temp 36.8 C 04/02/25 06:22 Pulse 70 04/02/25 06:22 Resp 20 04/02/25 06:22 BP 136/59 L 04/02/25 06:22 Pulse Ox 94 04/02/25 06:22 O2 Del Method Room Air 04/02/25 06:22 ENMT Mouth: no TMJ abnormality and no dentition abnormality Thyromental Distance: > or= 3.5 Finger Breadths Mallampati Class: II Neck neck extension not limited Respiratory normal respiratory effort; no respiratory distress Auscultation: lungs clear to auscultation bilaterally Cardiovascular Rate/Rhythm: regular rate and regular rhythm Neurologic moves all extremities Psychiatric Orientation: alert and oriented x 3 Testing Laboratory Results 04/01/25 06:33 04/01/25 06:33 Urine Color Yellow 03/31/25 19:51 Urine Appearance Clear (Clear) 03/31/25 19:51 Urine pH 6.0 (4.5-7.5) 03/31/25 19:51 Ur Specific [place] 1.045 (1.000-1.030) H 03/31/25 19:51 Urine Protein Negative (Negative) 03/31/25 19:51 Urine Glucose (UA) Negative (Negative) 03/31/25 19:51 Urine Ketones Negative (Negative) 03/31/25 19:51 Urine Nitrite Negative (Negative) 03/31/25 19:51 Ur Leukocyte Esterase Negative (Negative) 03/31/25 19:51 03/31/25 16:30 Aerobic Blood Culture - Preliminary Blood No growth in Aerobic bottle after 24 hours. Anaerobic Blood Culture - Preliminary No growth in Anaerobic bottle after 24 hours. 03/31/25 16:30 Aerobic Blood Culture - Preliminary Blood No growth in Aerobic bottle after 24 hours. Anaerobic Blood Culture - Preliminary No growth in Anaerobic bottle after 24 hours. 03/31/25 16:54 Gram Stain - Final Leg,Left Aerobic and Anaerobic Culture - Preliminary Staphylococcus aureus 04/02/25 04/01/25 06:14 20:07 POC Glucose 135 H 147 H
[2025-04-02] MEDS: TRANEXAMIC ACID / 0.7% NACL 1,000 MG/100 ML BAG IV ONE (07:00)
[2025-04-02] MEDS ORDERED: PHENYLEPHRINE 100MCG/ML 5ML SYR ONE (07:25)
[2025-04-02] MEDS ORDERED: ePHEDrine sulfate 50 MG/5 ML SYR ONE (07:41)
[2025-04-02] MEDS: BUPIVACAINE/EPINEPHRINE 0.5% MPF 1:200,000 30 ML VIAL ONE (08:04)
[2025-04-02] MEDS: LIDOCAINE 1% LOCAL 20 ML VIAL ONE (08:05)
--- NOTE | 2025-04-02 08:56 | Post Operative Brief Note ---
Immediate Post Op Note Date of Surgery April 02, 2025 Pre & Post Diagnosis Operation Date: 04/02/25 07:00 Pre-Op Diagnosis: (1) Postprocedural wound infection: (2) Wound of left lower extremity: Post-Op Diagnosis: (1) Postprocedural wound infection: (2) Wound of left lower extremity: I identified the patient and participated in the time-out.: Yes Procedure Operation Date: 04/02/25 07:00 Actual Procedures p Left Stump Irrigation and debridiment with wound vac placement(Left) - Marko Bergeron MD Surgeon Marko Bergeron MD Piece Meat Trimmer C ANDRES Estrada (No fellow avail) Estimated Blood Loss 50 Findings Consistent with Post-Op Diagnosis Fluids 400 cc Specimens Culture x 2 LLE Skin & Soft tissue x 2 Drains Other (Prevena incisional wound vac)
--- NOTE | 2025-04-02 08:58 | Operative Report ---
Post Operative Report Pre & Post Diagnosis Operation Date: 04/02/25 07:00 Pre-Op Diagnosis: (1) Postprocedural wound infection: (2) Wound of left lower extremity: Post-Op Diagnosis: (1) Postprocedural wound infection: (2) Wound of left lower extremity: I identified the patient and participated in the time-out.: Yes Procedure Operation Date: 04/02/25 07:00 Actual Procedures p Left Stump Irrigation and debridiment with wound vac placement(Left) - Marko Bergeron MD Surgeon Marko Bergeron MD Zigzag Appliquer Faviola Estrada PA-C (No fellow avail) Estimated Blood Loss 50 Findings See Below Wound was 25 x 3 x 2.5 cm, the wound was carried down through subcutaneous fat. There were necrotic wound edges, larger portion of dehisced wound was lateral with fibrinous tissue. There was a smaller pin hole opening more medially. There was necrotic fat. No katie pus. Fluids 400 cc Specimens Superficial & Deep LLE Wound Culture Skin and Soft tissue for pathology (Medial and Lateral) Drains Prevena Incisional Wound Vac Anesthesia Type General Complications none Indications The patient had undergone revision left AKA 6 weeks ago and now has partial dehisced the wound and it is draining; appears infected now. The patient understands the risks of surgery, which include but are not limited to: bleeding, infection, re-operation, damage to nerves and arteries, continued pain and DVT. The patient understands all of these instructions and explanations, all of their questions have been satisfactorily addressed. The patient has elected to proceed with surgery and the informed consent was signed. Description of Procedure Faviola Estrada PA-C is assisting with positioning, retraction, and closure due to fellow not available. Procedure The patient was taken to the Operating Room and placed in the supine position on the operating table. After general anesthetic was administered a multidisciplinary time-out was performed identifying my initials on the left lower limb as the correct and operative limb. His Antibiotic regime was completed just before entering the OR. The left leg was prepped and draped in the usual Orthopaedic sterile fashion. The patient's previous incision was marked as well as elliptical excision of the 2 open lesions on the AKA stump. The skin edges were injected with a 50:50 mixture of 1% lidocaine and 0.5 % Marcaine with epi for a total of 37 cc. The larger wound was cultured, marked superficial. The 2 skin lesions were ellipsed and excised with a scalpel and connected as well as extending along the previous incision. There was devitalized, necrotic soft tissue as well as a suture noted within this tissue. Deep cultures were also obtained. The non-viable skin, s oft tissue down to the deep subcutaneous fat was removed with a combination of sharp dissection with the scalpel, curette, the Versajet. There was no deep pocket pus. The wound was copiously irrigated with 6+ L normal saline. Any Vicryl sutures that were encountered were removed. Following irrigation and debridement there was healthy viable soft tissue that was bleeding. The skin were closed with 0 & 2-0 Prolene. The wound was covered Prevena, incisional wound vac. The sponge and needle counts were correct. POST-OP: Patient will be re-admitted to the Hospitalist service and continued on IV Abx until seen by infectious disease. Would also consult vascular surgery. I attest to the content of the Intraoperative Record and any orders documented therein. Any exceptions are noted below.
--- NOTE | 2025-04-02 09:11 | Operative Report ---
Post Operative Report Pre & Post Diagnosis Operation Date: 04/02/25 07:00 Pre-Op Diagnosis: (1) Postprocedural wound infection: (2) Wound of left lower extremity: Post-Op Diagnosis: (1) Postprocedural wound infection: (2) Wound of left lower extremity: I identified the patient and participated in the time-out.: Yes Procedure Operation Date: 04/02/25 07:00 Actual Procedures p Left Stump Irrigation and debridiment with wound vac placement(Left) - Mrako Bergeron MD Surgeon Satnam Bergeron MD Civil Engineering Project Manager Faviola Estrada PA-C (No fellow avail) Estimated Blood Loss 50 Findings Consistent with Post-Op Diagnosis see operative report Specimens see operative report Drains Prevena Complications none Disposition Accompanied Patient To Recovery: Yes Indications This 69 year old male was admitted to the hospital for persisting wound breakdown at his left AKA revision. Purulent drainage was noted. Patient elected to proceed with surgical intervention in hopes of improving his outcome. Preoperative lab work was obtained and the biotics were previously started. Description of Procedure The patient was taken to the operating room where he was given general anesthesia. He was prepped and draped in the usual sterile fashion. Please see Dr. Bergeron's operative report for specifics of the procedure. I was present for the entire case from initial patient positioning through final wound closure. Assistance was provided in tissue retraction, hemostasis, wound debridement, wound closure, and wound VAC placement. The patient was taken to the recovery room in satisfactory condition. I attest to the content of the Intraoperative Record and any orders documented therein. Any exceptions are noted below.
--- NOTE | 2025-04-02 10:24 | Anesthesiology Progress Note ---
Date of Service April 02, 2025 Anesthesia Post Procedure Vital Signs Vital Signs: Temp Pulse Pulse Pulse Resp BP Pulse Ox 04/02/25 09:50 36.8 C 81 20 121/53 L 92 04/02/25 09:40 82 22 113/57 L 92 04/02/25 09:30 80 16 117/62 96 04/02/25 09:20 82 20 114/40 L 94 04/02/25 09:10 84 20 106/38 L 97 04/02/25 09:03 36.0 C L 86 20 96/80 L 96 04/02/25 06:22 36.8 C 70 20 136/59 L 94 04/02/25 03:23 36.8 C 72 20 126/78 95 04/01/25 23:55 36.9 C 72 20 127/73 95 04/01/25 22:06 76 04/01/25 20:55 36.9 C 72 16 127/77 96 04/01/25 20:15 04/01/25 19:00 36.7 C 72 20 148/80 H 94 04/01/25 16:35 74 04/01/25 15:27 37.1 C 70 18 103/53 L 97 04/01/25 12:01 37.0 C 70 18 111/68 94 O2 Del Method O2 Flow Rate 04/02/25 09:50 Room Air 0 04/02/25 09:40 Room Air 0 04/02/25 09:30 Oxymask 2 04/02/25 09:20 Oxymask 2 04/02/25 09:10 Oxymask 4 04/02/25 09:03 Oxymask 4 04/02/25 06:22 Room Air 04/02/25 03:23 Room Air 04/01/25 23:55 Room Air 04/01/25 22:06 04/01/25 20:55 Room Air 04/01/25 20:15 Room Air 04/01/25 19:00 Room Air 04/01/25 16:35 04/01/25 15:27 Room Air 04/01/25 12:01 Room Air Pain Intensity Left Buttock: Pain Intensity: 2 Left Knee: Pain Intensity: 4 Transfer of Care Handoff Completed per policy Notes Mental Status: alert / awake / arousable and participated in evaluation Patient Amnestic to Procedure: Yes Nausea / Vomiting: adequately controlled Pain: adequately controlled Airway Patency, RR, SpO2: stable & adequate BP & HR: stable & adequate Hydration State: stable & adequate Anesthetic Complications: no major complications apparent and Pt Satisfied with anesthetic care
--- NOTE | 2025-04-02 10:34 | Hospitalist Progress Note ---
Date of Service April 02, 2025 Assessment & Plan (1) Postoperative infection: (2) Perineal fistula: (3) Peripheral arterial disease: (4) CAD (coronary artery disease): (5) Diabetes type 1, controlled: (6) Hypertension: (7) Dyslipidemia: (8) CKD stage 3 secondary to diabetes: (9) Hypothyroidism: (10) GERD (gastroesophageal reflux disease): (11) BPH (benign prostatic hyperplasia): Plan 69yo male with CKD, HTN, HLP, CAD, PAD s/p right BKA and left AKA with recent revision 02/14/25 presenting with increased redness, warmth, swelling of the surgical site of left AKA revision. Some wound dehiscence with minimal drainage. 1.Post-operative infection -Admitted with some drainage from the wound stump -He is now s/p Left Stump Irrigation and debridiment with wound vac placement today -wound cultures growing staph aureus, sensitivity pending -Antibiotic coverage with Daptomycin and Zosyn -Follow up intra operative cultures #Buttock wound/perineal fistula with possible abscess - ongoing issue for which patient follows with colorectal surgery at [facility]. -He has been seen by our surgical team for evaluation as well, conservative mgt for now -Turn and position q 2 hours -Wound care daily and PRN -Specialty bed appreciated #Colostomy in place -Routine management #Diabetes - overall well controlled. Last [id number]=1.6 on 01/24/25 -Patient may use his own insulin pump and continuous glucose monitoring -Hypoglycemia protocols in place #CAD/PAD -Continue ASA 81mg po daily -Continue Metoprolol -Hold Atorvastatin while on Daptomycin #Hypertension -Hold Chlorthalidone for now #Hyperlipidemia -Hold Atorvastatin while on Daptomycin #Hypothyroidism -Continue Synthroid 200mcg po daily -Hold Plavix 75mg po daily #GERD -Continue PRotonix 40mg po daily #BPH -Continue Flomax 0.4mg po daily Admission and Anticipated Discharge Date Admission Date: March 31, 2025 Subjective getting ready for OR Review of Systems Review of Systems: All systems reviewed are negative, apart from the ones contained in the history. Physical Exam Physical Exam: The patient is awake, alert and oriented 3, well developed and well nourished, normocephalic and atraumatic, lying in bed and in no acute distress. HEENT--PERRL, EOMI, mucous membranes and oropharynx mildly dry Neck--supple. No JVD. No bruits. Thyroid normal, trachea midline, no adenopathy. Heart--normal S1 and S2. No murmurs, rubs or gallops. Lungs--clear bilaterally, no respiratory distress, no accessory muscle use. Abdomen--normal bowel sounds and soft. colostomy Extremities--left AKA, right BKA Dermatologic--normal skin turgor, normal color, no abnormal lymph nodes, no rash. Neurologic--cranial nerves II through XII grossly intact. Rheumatologic--normal range of motion. Psychiatric--normal affect. Results & Data Results & Data Vital Signs (Past 12 Hours) Vital Signs Temp Pulse Pulse Resp BP Pulse Ox O2 Del Method 04/02/25 09:50 98.2 F 81 20 121/53 L 92 Room Air 04/02/25 09:40 82 22 113/57 L 92 Room Air 04/02/25 09:30 80 16 117/62 96 Oxymask 04/02/25 09:20 82 20 114/40 L 94 Oxymask 04/02/25 09:10 84 20 106/38 L 97 Oxymask 04/02/25 09:03 96.8 F L 86 20 96/80 L 96 Oxymask 04/02/25 06:22 98.2 F 70 20 136/59 L 94 Room Air 04/02/25 03:23 98.2 F 72 20 126/78 95 Room Air 04/01/25 23:55 98.4 F 72 20 127/73 95 Room Air O2 Flow Rate 04/02/25 09:50 0 04/02/25 09:40 0 04/02/25 09:30 2 04/02/25 09:20 2 04/02/25 09:10 4 04/02/25 09:03 4 04/02/25 06:22 04/02/25 03:23 04/01/25 23:55 PG Care Time/CCT Total # of Minutes Spent Total Time Spent with Patient: Total time spent is greater than 50% in coordination of care (as documented) at patient's floor/unit and/or counseling patient: Coding Level of Care Code 75635 SUB INP/OBS CARE 2/35MIN Diagnoses Postoperative infection T81.40XA Perineal fistula N36.0 Peripheral arterial disease I73.9 Coronary artery disease involving [place] coronary artery of [place] heart without angina pectoris I25.10 Coronary Disease-Associated Artery/Lesion type: [place] artery [place] vs. transplanted heart: [place] heart Associated angina: without angina Diabetes type 1, controlled E10.9 Hypertension, unspecified type I10 Hypertension type: unspecified Dyslipidemia E78.5 CKD stage 3 secondary to diabetes E11.22; N18.30 Hypothyroidism, unspecified type E03.9 Hypothyroidism type: unspecified GERD (gastroesophageal reflux disease) K21.9 BPH (benign prostatic hyperplasia) N40.0 Time Spent (min) 35 (4) CAD (coronary artery disease) Coronary Disease-Associated Artery/Lesion type: [place] artery [place] vs. transplanted heart: [place] heart Associated angina: without angina Qualified Code(s): I25.10 - Atherosclerotic heart disease of [place] coronary artery without angina pectoris (6) Hypertension Hypertension type: unspecified Qualified Code(s): I10 - Essential (primary) hypertension (9) Hypothyroidism Hypothyroidism type: unspecified Qualified Code(s): E03.9 - Hypothyroidism, unspecified
[2025-04-02 10:59] LABS: Hematocrit (blood only) 28.4 % (42.0-52.0); Hemoglobin 9.1 g/dl (14.0-18.0); Mean Corpuscular Hemoglobin 25.9 pg (25.0-34.0); Mean Corpuscular Volume 80.9 fL (80.0-100.0); Platelet Count 256 K/uL (130-400); RDW Standard Deviation 41.3 fL (36.4-46.3); Red Blood Count 3.51 M/uL (4.70-6.10); White Blood Count 8.71 K/ul (4.8-10.8)
[2025-04-02 11:17] LABS: Anion Gap 7.0 (3-11); Blood Urea Nitrogen 14.0 mg/dl (6-23); Calcium 8.4 mg/dl (8.6-10.3); Carbon Dioxide 25.0 mmol/L (21-32); Chloride 107.0 mmol/L (98-107); Creatinine Clr Calc Pharmacy 99.6 ml/min; Glucose 157.0 mg/dl (70-99(Fasting)); Potassium 3.4 mmol/L (3.5-5.1); Sodium 139.0 mmol/L (136-145)
--- NOTE | 2025-04-02 14:50 | Consultation ---
Date of Consultation April 02, 2025 Assessment & Plan (1) Aortoiliac stenosis: Pt with known AIOD and PAD, previously with BL iliac stents placed, as well as multiple attempts at bypass surgery for limb salvage. Pt now with poor healing of LLE AKA and recurrent infection. Pt L femoral pulse is palpable, however, would recommend CTA to better eval iliac stent patentcy. Will have CTA reviewed by Dr Eason when he returns on Monday. If felt by medical team to require more urgent vascular care, recommend consult different vascular provider or transfer. (2) Peripheral arterial disease: Pt with RLE BKA, LLE AKA. plan as above History of Present Illness Reason for Consultation: AIOD, PAD Attending Physician: Chetna Perrin MD History of Present Illness 69 yo m with hx of CAD, PAD, AIOD, HTN, AVR, DMI, osteoporosis, COPD, anemia, BPH, CKD, colostomy, RLE BKA, LLE BKA and subsequent AKA, admitted with worsening infection of LLE AKA stump, seen in consultation today for hx of PAD, AIOD. Pt known to Dr Eason, having undergone multiple failed revascularization attempts in the past. Pt underwent debridement and irrigation of LLE AKA surgical site this AM. Pt admits some post op pain, but denies any other complaints. Pt denies BRANHAM, fever, chest pain, SOB, abd pain, N/V, other complaints. CT imaging of pelvis demonstrates SONIDO stents, but difficult to determine patentcy as was not a CTA and arteries are heavily calcified. Allergies Allergy/AdvReac Type Severity Reaction Status Date / Time No Known Allergies Allergy Unknown Verified 04/02/25 06:20 Home Medications Medication Instructions Recorded Confirmed Type aspirin 81 mg tablet,delayed 81 mg PO QAM 05/04/21 03/31/25 History release (Mohit Low Dose Aspirin) Replacement Brakes for Manual #1 ea 05/12/23 01/26/25 Rx Wheelchair Mattress (Air or other) #1 ea 06/19/23 01/26/25 Rx Wheelchair (Manual) (Manual #1 ea 06/19/23 01/26/25 Rx Wheelchair) simethicone 125 mg capsule (Gas-X 125 mg PO DAILY PRN abdominal 07/24/23 03/31/25 Rx Extra Strength) distention #14 caps ondansetron 4 mg disintegrating 4 mg PO Q6H PRN nausea and 07/25/23 03/31/25 Rx tablet vomiting #30 tabs 10 incches wedge pillow #1 ea 11/01/23 01/26/25 Rx acetaminophen 500 mg tablet 500 mg PO Q8 PRN Pain 02/22/24 03/31/25 History (Tylenol Extra Strength) AQUACEL AG #30 ea 03/12/24 01/26/25 Rx Optifoam #30 ea 03/12/24 01/26/25 Rx levocetirizine 5 mg tablet 5 mg PO QPM #90 tabs 05/09/24 03/31/25 Rx ferrous sulfate 325 mg (65 mg 325 mg PO BID #60 tabs 06/24/24 03/31/25 Rx iron) tablet,delayed release chlorthalidone 25 mg tablet 25 mg PO QAM #90 tabs 07/24/24 03/31/25 Rx ROHO Cushion #1 ea 08/23/24 01/26/25 Rx insulin aspart U-100 100 unit/mL See Rx Instructions continuous 09/10/24 03/31/25 Rx subcutaneous solution (Novolog subcutaneous infusion CONTINOUS U-100 Insulin aspart) #60 mL clopidogrel 75 mg tablet (Plavix) 75 mg PO QAM #90 tabs 10/22/24 03/31/25 Rx folic acid 1 mg tablet 1 mg PO QAM #90 tabs 10/22/24 03/31/25 Rx metoprolol tartrate 25 mg tablet 12.5 mg (1/2 x 25 mg) PO BID #90 11/15/24 03/31/25 Rx tabs atorvastatin 80 mg tablet (Lipitor) 80 mg PO HS #90 tabs 11/29/24 03/31/25 Rx calcitriol 0.25 mcg capsule 0.25 mcg PO QAM #30 caps 01/22/25 03/31/25 Rx pantoprazole 40 mg tablet,delayed 40 mg PO QAM 01/26/25 03/31/25 History release (Protonix) tamsulosin 0.4 mg capsule 0.4 mg PO QAM 01/26/25 03/31/25 History trazodone 100 mg tablet 100 mg PO HS PRN Sleep 01/26/25 03/31/25 History ibuprofen 200 mg tablet 400 mg PO Q6H PRN Pain 02/06/25 03/31/25 History levothyroxine 200 mcg tablet 200 mcg PO QAM 02/06/25 03/31/25 History oxycodone 5 mg tablet 5 - 10 mg PO Q6H PRN pain 02/06/25 03/31/25 History potassium chloride 20 mEq 20 meq PO BID #180 tabs 03/25/25 03/31/25 Rx tablet,extended release magic mix 1 applic topical BID 03/31/25 03/31/25 History Patient History Medical History CKD stage 3 secondary to diabetes PAD (peripheral artery disease) s/p B/L LE stenting and LLE bypass Ambulatory dysfunction WC bound Colostomy in place Insulin pump in place Chronic wound left groin area, recently under anesthesia thru [facility] 01/09/25, for evaluation of his wound, "which surgeon stated no surgical intervention necessary at that time" History of aortic stenosis s/p porcine valve replacement (2015) + CABG x1 Follows with [facility] cardio Diabetic peripheral neuropathy associated with type 1 diabetes mellitus History of COPD History of BPH Hx of chronic kidney disease Above knee amputation of left lower extremity History of nephrolithiasis Gastroparesis Anemia 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) Hx MRSA infection 01/2022 (left heel) History of colon polyps History of Clostridium difficile infection s/p treatment (2020) Below-knee amputation of right lower extremity Clostridium difficile colitis hx, 2020, resolved DVT prophylaxis hx Folate deficiency GERD (gastroesophageal reflux disease) Dyslipidemia hx Hypertension Hypothyroidism Vitamin D deficiency CAD (coronary artery disease) s/p CABG (SVG to PDA) x 1 (2015) Surgical History History of surgery EUA, debridement of perineal cyst 01/09/25: under [facility] at [facility]; no issues reported History of below-knee amputation of right lower extremity History of left above knee amputation 07/2022 History of intestinal surgery (2022) w/creation colostomy, [facility] Hx laparoscopic cholecystectomy (07/17/23) Robotic assisted Laparoscopic Cholecystectomy(Not Applicable) - Markus Dawson, DO, FACS Hx of cystoscopy w/stent placement; stent then removed History of skin graft Split Thickness Skin Graft of Left Lateral Ankle (11/18/20): LMA#5, atraumatic x1 at [facility] Hx of surgical procedure Left Leg Wound Debridement and Irrigation History of arterial bypass of lower extremity Left femoral to PT composite bypass graft (06/2020), Right femoral to PT bypass graft 01/2021, Removal right fem-pop bypass 03/2021 (graft occluded) History of carpal tunnel release R/L History of tooth extraction History of tonsillectomy History of myringotomy w/tubes bilat. S/P femoropopliteal bypass surgery Right fem-pop bypass graft (01/19/21): Grade 2 view, MAC 3.0, ETT 8.0 at [facility] Left femoral to PT composite bypass graft (06/2020) History of cardiac cath x2, most recent 2016 > no stents (subsequent CABG with AVR in 2015); [facility] History of umbilical hernia repair S/P insertion of iliac artery stent B/L iliac stent placement (2014) H/O endarterectomy R common femoral (11/2018) History of open reduction and internal fixation (ORIF) procedure LLE () History of colonoscopy History of esophagogastroduodenoscopy (EGD) H/O cataract extraction R/L History of ankle surgery left ankle, repair left ankle, hardware removed History of coronary artery bypass graft CABG x1 + AVR (2015) 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 Left transmetatarsal amputation (11/23/21): LMA# 5.0 at [facility]. No issues noted per post-op anesthesia progress note. HX 1 SX TO REMOVE ALL TOES LEFT FOOT NOVEMBER 2021 Family History Brother Family history of diabetes mellitus Sister Family history of diabetes mellitus Mother Family history of diabetes mellitus Grandmother (Maternal) Family history of diabetes mellitus Uncle Family hx of colon cancer Colorectal cancer Father Family history of esophageal cancer Sister Family history of diabetes mellitus Other No family history of adverse response to anesthesia Denies family history of Ovarian cancer Prostate cancer Myocardial infarction Breast cancer Social History Smoking Status: Former smoker Tobacco Type: Cigarettes and Smokeless Tobacco (Dip or Chew) Age Started Using Tobacco: 15; Age Quit Using Tobacco: 53; packs per day: 1; Cigarettes Per Day: 20; Second Hand Exposure: No; Do You Dip or Chew Tobacco: No; Hx Alcohol Use: Yes Alcohol type: beer Alcohol Intake Frequency: Monthly or Less Hx Substance Use: No Preferred Language: Telugu Communication Ability: Effective Visual Impairment: No Limitations Hearing Ability: Hard of Hearing 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 ([id number], roughly), protein drinks caffeine: Yes (coffee, rarely ) during the past year weight has: remained stable Dental Care, Regularly: No Seatbelt Use: always Sunscreen Use: No Gender Identity: Male Assistive Devices: Bedside Commode, Walker and Wheelchair Review of Systems Review of Systems: All systems reviewed & are unremarkable except as noted in HPI & below Physical Exam Constitutional: WD/WN, vitals as above cooperative and comfortable; not in distress Neck: trachea midline Respiratory: normal respiratory effort, lungs clear to auscultation no respiratory distress Auscultation: + diminished lung sounds Cardiovascular: Rate/Rhythm: regular rate and regular rhythm Vessels: femoral pulses present (+1 BLE), posterior tibial pulses present (BL amputations) and dorsalis pedis pulses present (BL amputations); + abnormal peripheral pulses Gastrointestinal (Abdomen): Inspection/Auscultation: normal bowel sounds Percussion/Palpation: abdomen soft; abdomen nontender colostomy noted Musculoskeletal: Extremities: + amputation noted (BLE) Skin: no rashes, warm and dry LLE AKA surgical incision dressing in place Neurologic: moves all extremities and awake; no focal motor deficits and not confused Psychiatric: A+Ox3, euthymic affect Results & Data Vital Signs (Past 12 Hours) Vital Signs Temp Pulse Pulse Pulse Resp BP Pulse Ox 04/02/25 11:10 76 04/02/25 10:38 36.6 C 81 18 146/71 H 93 04/02/25 09:50 36.8 C 81 20 121/53 L 92 04/02/25 09:40 82 22 113/57 L 92 04/02/25 09:30 80 16 117/62 96 04/02/25 09:20 82 20 114/40 L 94 04/02/25 09:10 84 20 106/38 L 97 04/02/25 09:03 36.0 C L 86 20 96/80 L 96 04/02/25 06:22 36.8 C 70 20 136/59 L 94 04/02/25 03:23 36.8 C 72 20 126/78 95 O2 Del Method O2 Flow Rate 04/02/25 11:10 04/02/25 10:38 Room Air 04/02/25 09:50 Room Air 0 04/02/25 09:40 Room Air 0 04/02/25 09:30 Oxymask 2 04/02/25 09:20 Oxymask 2 04/02/25 09:10 Oxymask 4 04/02/25 09:03 Oxymask 4 04/02/25 06:22 Room Air 04/02/25 03:23 Room Air
--- NOTE | 2025-04-02 15:08 | Infectious Disease Consult ---
Date of Consultation April 02, 2025 Assessment & Plan (1) MSSA (methicillin susceptible Staphylococcus aureus) infection: (2) Amputation stump infection: Plan Problems: #L AKA 07/2022 with revision 02/14/25 c/b postoperative infection with wound dehiscence s/p I&D 04/02/25 #PAD Micro: 04/02 LLE OR cx: pending 03/31 LLE wound cx: moderate MSSA, few Steno, low counts of probable skin richardson 03/31 BCx x2: NGTD Abx: Vanc 03/31 Dapto 03/31 - Zosyn 03/31 - 69 yo M with CAD s/p CABG, AVR (2015), DM with insulin pump, COPD, CKD, colostomy, PAD s/p R BKA, L AKA 07/2022 with revision of L AKA 02/14/25 who presented on 03/31 with a few days of increased pain, warmth, swelling, and drainage of the LLE wound. His home nurse noted purulent drainage and wound dehiscence. On presentation, pt was afebrile, HDS. Labs showed WBC 9.34, normal lactate. UA negative. CT LLE with contrast showed postop changes of L AKA with subtle inflammatory changes about the incision, no defined rim-enhancing fluid collection. CT pelvis was also done and noted a L perianal fistula with again seen gas containing fluid collection likely representing abscess, inflammatory changes of bladder suggesting cystitis. Wound culture was sent from the ED, and pt was started on dapto, Zosyn. Orthopedic surgery was consulted. Wound culture began growing MSSA. Pt was taken to the OR on 04/02 for I&D and wound vac placement. Vascular surgery recommending CTA to evaluate iliac stent patency. General surgery was consulted regarding the perianal fistula, recommended continued local wound care. Recommendations: - Narrowed antibiotics to cefazolin to cover MSSA - Follow-up OR cultures Will continue to follow Consultation Information This patient recommendation is based on a telemedicine consult request which was completed asynchronously through chart review and information provided by the primary physician. The patient was not seen or examined today. The evaluation is consultative in nature and all patient care and treatment decisions can either be accepted or rejected by the patient's primary hospital-based treating physician using their own independent medical judgment for their patient. Station Captain contact information: Please call [facility] . (Phone Number For Physician Use Only) Time Spent Reviewing Chart: 31+ minutes History of Present Illness Reason for Consultation: L AKA stump infection Attending Physician: Chetna Perrin MD History of Present Illness 69 yo M with CAD s/p CABG, AVR (2015), DM with insulin pump, COPD, CKD, colostomy, PAD s/p R BKA, L AKA 07/2022 with revision of L AKA 02/14/25 who presented on 03/31 with a few days of increased pain, warmth, swelling, and drainage of the LLE wound. His home nurse noted purulent drainage and wound dehiscence. On presentation, pt was afebrile, HDS. Labs showed WBC 9.34, normal lactate. UA negative. CT LLE with contrast showed postop changes of L AKA with subtle inflammatory changes about the incision, no defined rim-enhancing fluid collection. CT pelvis was also done and noted a L perianal fistula with again seen gas containing fluid collection likely representing abscess, inflammatory changes of bladder suggesting cystitis. Wound culture was sent from the ED, and pt was started on dapto, Zosyn. Orthopedic surgery was consulted. Wound culture began growing Staph aureus. Pt was taken to the OR on 04/02 for I&D and wound vac placement. General surgery was consulted regarding the perianal fistula, recommended continued local wound care. Allergies Allergy/AdvReac Type Severity Reaction Status Date / Time No Known Allergies Allergy Unknown Verified 04/02/25 06:20 Home Medications Medication Instructions Recorded Confirmed Type aspirin 81 mg tablet,delayed 81 mg PO QAM 05/04/21 03/31/25 History release (Mohit Low Dose Aspirin) Replacement Brakes for Manual #1 ea 05/12/23 01/26/25 Rx Wheelchair Mattress (Air or other) #1 ea 06/19/23 01/26/25 Rx Wheelchair (Manual) (Manual #1 ea 06/19/23 01/26/25 Rx Wheelchair) simethicone 125 mg capsule (Gas-X 125 mg PO DAILY PRN abdominal 07/24/23 03/31/25 Rx Extra Strength) distention #14 caps ondansetron 4 mg disintegrating 4 mg PO Q6H PRN nausea and 07/25/23 03/31/25 Rx tablet vomiting #30 tabs 10 incches wedge pillow #1 ea 11/01/23 01/26/25 Rx acetaminophen 500 mg tablet 500 mg PO Q8 PRN Pain 02/22/24 03/31/25 History (Tylenol Extra Strength) AQUACEL AG #30 ea 03/12/24 01/26/25 Rx Optifoam #30 ea 03/12/24 01/26/25 Rx levocetirizine 5 mg tablet 5 mg PO QPM #90 tabs 05/09/24 03/31/25 Rx ferrous sulfate 325 mg (65 mg 325 mg PO BID #60 tabs 06/24/24 03/31/25 Rx iron) tablet,delayed release chlorthalidone 25 mg tablet 25 mg PO QAM #90 tabs 07/24/24 03/31/25 Rx ROHO Cushion #1 ea 08/23/24 01/26/25 Rx insulin aspart U-100 100 unit/mL See Rx Instructions continuous 09/10/24 03/31/25 Rx subcutaneous solution (Novolog subcutaneous infusion CONTINOUS U-100 Insulin aspart) #60 mL clopidogrel 75 mg tablet (Plavix) 75 mg PO QAM #90 tabs 10/22/24 03/31/25 Rx folic acid 1 mg tablet 1 mg PO QAM #90 tabs 10/22/24 03/31/25 Rx metoprolol tartrate 25 mg tablet 12.5 mg (1/2 x 25 mg) PO BID #90 11/15/24 03/31/25 Rx tabs atorvastatin 80 mg tablet (Lipitor) 80 mg PO HS #90 tabs 11/29/24 03/31/25 Rx calcitriol 0.25 mcg capsule 0.25 mcg PO QAM #30 caps 01/22/25 03/31/25 Rx pantoprazole 40 mg tablet,delayed 40 mg PO QAM 01/26/25 03/31/25 History release (Protonix) tamsulosin 0.4 mg capsule 0.4 mg PO QAM 01/26/25 03/31/25 History trazodone 100 mg tablet 100 mg PO HS PRN Sleep 01/26/25 03/31/25 History ibuprofen 200 mg tablet 400 mg PO Q6H PRN Pain 02/06/25 03/31/25 History levothyroxine 200 mcg tablet 200 mcg PO QAM 02/06/25 03/31/25 History oxycodone 5 mg tablet 5 - 10 mg PO Q6H PRN pain 02/06/25 03/31/25 History potassium chloride 20 mEq 20 meq PO BID #180 tabs 03/25/25 03/31/25 Rx tablet,extended release magic mix 1 applic topical BID 03/31/25 03/31/25 History Patient History Medical History CKD stage 3 secondary to diabetes PAD (peripheral artery disease) s/p B/L LE stenting and LLE bypass Ambulatory dysfunction WC bound Colostomy in place Insulin pump in place Chronic wound left groin area, recently under anesthesia thru [facility] 01/09/25, for evaluation of his wound, "which surgeon stated no surgical intervention necessary at that time" History of aortic stenosis s/p porcine valve replacement (2015) + CABG x1 Follows with [facility] cardio Diabetic peripheral neuropathy associated with type 1 diabetes mellitus History of COPD History of BPH Hx of chronic kidney disease Above knee amputation of left lower extremity History of nephrolithiasis Gastroparesis Anemia 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) Hx MRSA infection 01/2022 (left heel) History of colon polyps History of Clostridium difficile infection s/p treatment (2020) Below-knee amputation of right lower extremity Clostridium difficile colitis hx, 2020, resolved DVT prophylaxis hx Folate deficiency GERD (gastroesophageal reflux disease) Dyslipidemia hx Hypertension Hypothyroidism Vitamin D deficiency CAD (coronary artery disease) s/p CABG (SVG to PDA) x 1 (2015) Surgical History History of surgery EUA, debridement of perineal cyst 01/09/25: under GA at [facility]; no issues reported History of below-knee amputation of right lower extremity History of left above knee amputation 07/2022 History of intestinal surgery (2022) w/creation colostomy, [facility] Hx laparoscopic cholecystectomy (07/17/23) Robotic assisted Laparoscopic Cholecystectomy(Not Applicable) - Markus Dawson, DO, FACS Hx of cystoscopy w/stent placement; stent then removed History of skin graft Split Thickness Skin Graft of Left Lateral Ankle (11/18/20): LMA#5, atraumatic x1 at [facility] Hx of surgical procedure Left Leg Wound Debridement and Irrigation History of arterial bypass of lower extremity Left femoral to PT composite bypass graft (06/2020), Right femoral to PT bypass graft 01/2021, Removal right fem-pop bypass 03/2021 (graft occluded) History of carpal tunnel release R/L History of tooth extraction History of tonsillectomy History of myringotomy w/tubes bilat. S/P femoropopliteal bypass surgery Right fem-pop bypass graft (01/19/21): Grade 2 view, MAC 3.0, ETT [address] [facility] Left femoral to PT composite bypass graft (06/2020) History of cardiac cath x2, most recent 2016 > no stents (subsequent CABG with AVR in 2015); [facility] History of umbilical hernia repair S/P insertion of iliac artery stent B/L iliac stent placement (2014) H/O endarterectomy R common femoral (11/2018) History of open reduction and internal fixation (ORIF) procedure LLE () History of colonoscopy History of esophagogastroduodenoscopy (EGD) H/O cataract extraction R/L History of ankle surgery left ankle, repair left ankle, hardware removed History of coronary artery bypass graft CABG x1 + AVR (2015) 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 Left transmetatarsal amputation (11/23/21): LMA# [address] [facility]. No issues noted per post-op anesthesia progress note. HX 1 SX TO REMOVE ALL TOES LEFT FOOT NOVEMBER 2021 Family History Brother Family history of diabetes mellitus Sister Family history of diabetes mellitus Mother Family history of diabetes mellitus Grandmother (Maternal) Family history of diabetes mellitus Uncle Family hx of colon cancer Colorectal cancer Father Family history of esophageal cancer Sister Family history of diabetes mellitus Other No family history of adverse response to anesthesia Denies family history of Ovarian cancer Prostate cancer Myocardial infarction Breast cancer Social History Smoking Status: Former smoker Tobacco Type: Cigarettes and Smokeless Tobacco (Dip or Chew) Age Started Using Tobacco: 15; Age Quit Using Tobacco: 53; packs per day: 1; Cigarettes Per Day: 20; Second Hand Exposure: No; Do You Dip or Chew Tobacco: No; Hx Alcohol Use: Yes Alcohol type: beer Alcohol Intake Frequency: Monthly or Less Hx Substance Use: No Preferred Language: Italian Communication Ability: Effective Visual Impairment: No Limitations Hearing Ability: Hard of Hearing 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 ([id number], roughly), protein drinks caffeine: Yes (coffee, rarely ) during the past year weight has: remained stable Dental Care, Regularly: No Seatbelt Use: always Sunscreen Use: No Gender Identity: Male Assistive Devices: Bedside Commode, Walker and Wheelchair Results & Data Vital Signs (Past 12 Hours) Vital Signs Temp Pulse Pulse Pulse Resp BP Pulse Ox 04/02/25 15:06 36.4 C L 73 18 130/62 95 04/02/25 11:10 76 04/02/25 10:38 36.6 C 81 18 146/71 H 93 04/02/25 09:50 36.8 C 81 20 121/53 L 92 04/02/25 09:40 82 22 113/57 L 92 04/02/25 09:30 80 16 117/62 96 04/02/25 09:20 82 20 114/40 L 94 04/02/25 09:10 84 20 106/38 L 97 04/02/25 09:03 36.0 C L 86 20 96/80 L 96 04/02/25 06:22 36.8 C 70 20 136/59 L 94 04/02/25 03:23 36.8 C 72 20 126/78 95 O2 Del Method O2 Flow Rate 04/02/25 15:06 Room Air 04/02/25 11:10 04/02/25 10:38 Room Air 04/02/25 09:50 Room Air 0 04/02/25 09:40 Room Air 0 04/02/25 09:30 Oxymask 2 04/02/25 09:20 Oxymask 2 04/02/25 09:10 Oxymask 4 04/02/25 09:03 Oxymask 4 04/02/25 06:22 Room Air 04/02/25 03:23 Room Air Laboratory Results Short CBC 04/02/25 Range/Units 10:04 WBC 8.71 (4.8-10.8) K/ul Hgb 9.1 L (14.0-18.0) g/dl Hct 28.4 L (42.0-52.0) % Plt Count 256 (130-400) K/uL BMP 04/02/25 10:04 Sodium 139 Potassium 3.4 L Chloride 107 Carbon Dioxide 25 BUN 14 Creatinine 0.65 Glucose 157 H Calcium 8.4 L Medications Administered Current Inpatient Medications Acetaminophen (Acetaminophen 500 Mg Tab) 500 mg PO Q8 PRN PRN Reason: mild Pain Stop: 04/30/25 21:50 Last Admin: 04/02/25 16:24 Dose: 500 mg Aspirin (Aspirin 81 Mg Ectab) 81 mg PO QAM [facility] Stop: 05/01/25 08:59 Last Admin: 04/02/25 10:52 Dose: 81 mg Calcitriol (Calcitriol 0.25 Mcg Capsule) 0.25 mcg PO QAM [facility] Stop: 05/01/25 08:59 Last Admin: 04/02/25 10:52 Dose: 0.25 mcg Dextrose (Dextrose 50% 50 Ml Syringe) 25 - 50 ml IV UD PRN; Protocol PRN Reason: Hypoglycemia Protocol Stop: 04/30/25 21:50 Docusate Sodium (Docusate Sodium 100 Mg Cap) 100 mg PO BID PRN PRN Reason: Constipation Stop: 04/30/25 21:50 Glucagon (Glucagon For Inj 1 Mg Vial) 1 mg SQ UD PRN; Protocol PRN Reason: Hypoglycemia Protocol Stop: 04/30/25 21:50 Glucose (Glucose 40% Gel 15 Gm Tube) 15 - 30 gm PO UD PRN; Protocol PRN Reason: Hypoglycemia Protocol Stop: 04/30/25 21:50 Glucose (Glucose 10 Tab/Tube) 4 - 8 tab PO UD PRN; Protocol PRN Reason: Hypoglycemia Protocol Stop: 04/30/25 21:50 Piperacillin Sod/Tazobactam Sod (Zosyn) 4.5 gm in 100 mls @ 25 mls/hr IV Q8H [facility]ZZ[facility]; Protocol Stop: 04/10/25 21:59 Last Admin: 04/02/25 14:15 Dose: 25 mls/hr Daptomycin 400 mg/ Syringe 8 mls @ 4 mls/min IV Q24H [facility]; Protocol Stop: 04/08/25 01:59 Last Admin: 04/02/25 02:04 Dose: 4 mls/min Insulin Aspart (Insulin, Rapid-Acting Pump) 0 each SC [facility]; Protocol Stop: 05/01/25 07:29 Last Admin: 04/02/25 13:02 Dose: 4.8 each Insulin Aspart (Insulin Aspart 100 Units/Ml Vial) 0 units SC PRN PRN PRN Reason: Insulin (Rapid-Acting) Pump Refill Stop: 04/30/25 22:05 Levothyroxine Sodium (Levothyroxine Sodium 200 Mcg Tablet) [facility] Stop: 05/01/25 06:29 Last Admin: 04/02/25 06:37 Dose: Not Given Metoprolol Tartrate (Metoprolol Tartrate 25 Mg Tab) 12.5 mg PO BID [facility] Stop: 04/30/25 21:50 Last Admin: 04/02/25 10:53 Dose: 12.5 mg Miscellaneous (Carbohydrates For Hypoglycemia ) 15 - 30 gm PO UD PRN PRN Reason: Hypoglycemia Protocol Stop: 04/30/25 21:50 Miscellaneous (Continuous Glucose Monitor) 0 each N/A [facility] Stop: 05/01/25 07:29 Last Admin: 04/02/25 13:01 Dose: Not Given Morphine Sulfate (Morphine Sulfate 2 Mg/Ml Carp) 2 mg IV Q3H PRN PRN Reason: Pain (6,7,8,9,10) Stop: 04/14/25 21:50 Ondansetron HCl (Ondansetron Inj 2 Mg/Ml 2 Ml Vial) 4 mg IV Q6H PRN PRN Reason: Nausea And Vomiting Stop: 04/30/25 21:50 Last Admin: 04/01/25 04:12 Dose: 4 mg Oxycodone HCl (Oxycodone Hcl Ir 5 Mg Tab (Immediate Release)) 5 mg PO Q4H PRN PRN Reason: 1st line Pain if refuses APAP Stop: 04/14/25 22:56 Last Admin: 04/02/25 02:03 Dose: 5 mg Pantoprazole Sodium (Pantoprazole 40 Mg Tab) [address] [place] Stop: 05/01/25 08:59 Last Admin: 04/02/25 10:52 Dose: 40 mg Tamsulosin HCl (Tamsulosin Hcl 0.4 Mg Cap) 0.[address] [facility] [place] Stop: 05/01/25 08:59 Last Admin: 04/02/25 10:52 Dose: 0.4 mg Trazodone HCl (Trazodone Hcl 100 Mg Tab) 100 mg PO HS PRN PRN Reason: Sleep Stop: 04/30/25 21:50
[2025-04-02] MEDS: ACETAMINOPHEN 500 MG TAB PO PRN (16:24)
[2025-04-02] MEDS: OPTIRAY 320 125ml IV ONE (16:47)
--- NOTE | 2025-04-02 17:41 | CT Scan Report ---
EXAMINATION: CT angiogram of the abdomen and pelvis performed before and after the administration of IV contrast TECHNIQUE: Helical CT images from the lung bases through the symphysis pubis were obtained with and without contrast. Coronal and sagittal reformatted images were generated at a workstation for further assessment. Dose reduction techniques were achieved by using automatic exposure control and/or adjustment of mA and/or kV according to patient size and/or use of iterative reconstruction technique. COMPARISON: CT of the pelvis from 03/31/2025 HISTORY: AI OD FINDINGS: Lower chest: Small right pleural effusion. Liver: No suspicious liver lesions. Portal veins appear patent. Gallbladder: Cholecystectomy. Spleen: Normal size. Pancreas: No suspicious pancreatic lesions. The pancreatic duct is not dilated. Adrenal glands: No adrenal nodules. Kidneys: No hydronephrosis or obstructing renal stones. Bladder / Pelvic organs: Unremarkable. Bowel: No bowel obstruction. There is mild wall thickening as well as surrounding inflammatory fat stranding about the mesorectal space. There is a left perianal fistula with a thick walled gas containing fluid structure that is similar to prior, again with insinuation between the prostate gland and the obturator musculature seen, and is partially again seen to extend to the left peroneum, and at the left base of the scrotum. No finding of active contrast extravasation in the bowel. Note that there were a few areas of high density material, as seen in the stomach, the hepatic flexure of the large bowel, and rectum, which are present on the noncontrast images suggesting ingested material. Diverting loop colostomy of the left abdominal wall. There is fluid throughout the large bowel, which may be related to a diarrheal illness. Lymph nodes: No retroperitoneal, mesenteric, or pelvic lymphadenopathy. Peritoneum / Retroperitoneum: No free fluid or air within the abdomen. Vessels: No infrarenal aortic aneurysm. Heavy aortoiliac atherosclerotic calcifications. Stent of the right common iliac artery appears grossly patent. At the right groin, there is evidence of a bypass graft change, which is occluded. The [place] superficial femoral artery is also occluded. The right deep femoral artery appears patent with heavy calcifications. At the left groin, there is a short segment occlusion of the common femoral artery. A bypass graft appears occluded, and the [place] superficial femoral artery appears occluded. Patent deep femoral artery with heavy calcifications seen proximally in the [id number]. Bones and soft tissues: No suspicious lesion in the bones. IMPRESSION: Similar appearing left perianal fistula, as above. Wall thickening and extensive inflammatory fat stranding involving the rectum, suggesting associated proctitis. No active extravasation in the bowel to suggest an acute GI bleed. Electronically signed by Juni Cavazos 04-02-2025 5:40 PM
--- NOTE | 2025-04-03 09:07 | Orthopedic Progress Note ---
Date of Service April 03, 2025 Assessment & Plan (1) Wound of left lower extremity: Plan: IMPRESSION: Postoperative infection s/p left AKA revision on 02/14/25. PLAN: Continue IV Abx: Daptomycin & Piperacillin. Continue the Prevena wound VAC for 2 weeks. He will likely require placement. Pain control per the primary service. He will follow-up in the office in 2 weeks for removal of the wound VAC. Sutures will remain in place for at least 3 weeks. We will await final cultures for tailoring of his antibiotics. Continue DVT prophylaxis. Admission and Anticipated Discharge Date Admission Date: March 31, 2025 Supervising Physician Co-Signing Physician Notes I saw and examined the patient. I agree with the above findings and my plan of care, I discussed with my PA. Subjective This 69 year old male is seen today in his room. He is in good spirits. He is postop day 1 from I&D of his left AKA stump. Nursing staff are present. He denies any significant pain. No chest pain or shortness of breath. He states his wound VAC was beeping earlier, but after being plugged in, it is working fine. No new complaints. Physical Exam Physical Exam: General: Well-developed, well-nourished, middle-aged male, in no acute distress. Laying in bed. Alert and oriented. Skin: Warm and dry with good turgor. He has the Prevena wound VAC in place on his left thigh AKA. It is functioning well. Sponge remains compressed. There is no fluid within the tube or his canister. Musculoskeletal: The patient is able to elevate his thigh and contract his musculature. Neurologic: Gross sensation is intact across the upper thigh and groin by soft touch. Femoral pulses are palpable at 2+. Results & Data Vital Signs (Past 12 Hours) Vital Signs Temp Pulse Pulse Resp BP Pulse Ox O2 Del Method 04/03/25 07:41 68 04/03/25 07:13 37 C 69 20 142/78 H 94 Room Air 04/03/25 04:43 36.9 C 04/03/25 02:53 37.9 C H 67 14 134/79 95 Room Air 04/03/25 00:46 71 04/02/25 23:24 36.5 C 70 14 118/69 96 Room Air
--- NOTE | 2025-04-03 11:01 | Hospitalist Progress Note ---
Date of Service April 03, 2025 Assessment & Plan (1) Postoperative infection: (2) Perineal fistula: (3) Peripheral arterial disease: (4) CAD (coronary artery disease): (5) Diabetes type 1, controlled: (6) Hypertension: (7) Dyslipidemia: (8) CKD stage 3 secondary to diabetes: (9) Hypothyroidism: (10) GERD (gastroesophageal reflux disease): (11) BPH (benign prostatic hyperplasia): Plan 69yo male with CKD, HTN, HLP, CAD, PAD s/p right BKA and left AKA with recent revision 02/14/25 presenting with increased redness, warmth, swelling of the surgical site of left AKA revision. Some wound dehiscence with minimal drainage. 1.Post-operative infection -Admitted with some drainage from the wound stump -He is now s/p Left Stump Irrigation and debridiment with wound vac placement today -wound cultures growing staph aureus, sensitivity pending -Antibiotic coverage with Daptomycin and Zosyn -Follow up intra operative cultures #Buttock wound/perineal fistula with possible abscess - ongoing issue for which patient follows with colorectal surgery at [facility]. -He has been seen by our surgical team for evaluation as well, conservative mgt for now -Turn and position q 2 hours -Wound care daily and PRN -Specialty bed appreciated Aortoilliac disease CTA shows patent illiac stent #Colostomy in place -Routine management #Diabetes - overall well controlled. Last [id number]=5.6 on 01/24/25 -Patient may use his own insulin pump and continuous glucose monitoring -Hypoglycemia protocols in place #CAD/PAD -Continue ASA 81mg po daily -Continue Metoprolol -Hold Atorvastatin while on Daptomycin #Hypertension -Hold Chlorthalidone for now #Hyperlipidemia -Hold Atorvastatin while on Daptomycin #Hypothyroidism -Continue Synthroid 200mcg po daily -Hold Plavix 75mg po daily #GERD -Continue PRotonix 40mg po daily #BPH -Continue Flomax 0.4mg po daily Disposotion: Will need the wound vac for 2 weeks, auth has been requested for SNF Admission and Anticipated Discharge Date Admission Date: March 31, 2025 Subjective patient seen and examined,no new complains today Review of Systems Review of Systems: All systems reviewed are negative, apart from the ones contained in the history. Physical Exam Physical Exam: The patient is awake, alert and oriented 3, well developed and well nourished, normocephalic and atraumatic, lying in bed and in no acute distress. HEENT--PERRL, EOMI, mucous membranes and oropharynx mildly dry Neck--supple. No JVD. No bruits. Thyroid normal, trachea midline, no adenopathy. Heart--normal S1 and S2. No murmurs, rubs or gallops. Lungs--clear bilaterally, no respiratory distress, no accessory muscle use. Abdomen--normal bowel sounds and soft. colostomy Extremities--left AKA, right BKA Dermatologic--normal skin turgor, normal color, no abnormal lymph nodes, no rash. Neurologic--cranial nerves II through XII grossly intact. Rheumatologic--normal range of motion. Psychiatric--normal affect. Results & Data Results & Data Vital Signs (Past 12 Hours) Vital Signs Temp Pulse Pulse Resp BP Pulse Ox O2 Del Method 04/03/25 07:41 68 04/03/25 07:13 98.6 F 69 20 142/78 H 94 Room Air 04/03/25 04:43 98.4 F 04/03/25 02:53 100.2 F H 67 14 134/79 95 Room Air 04/03/25 00:46 71 04/02/25 23:24 97.7 F 70 14 118/69 96 Room Air PG Care Time/CCT Total # of Minutes Spent Total Time Spent with Patient: Total time spent is greater than 50% in coordination of care (as documented) at patient's floor/unit and/or counseling patient: Coding Level of Care Code 57767 SUB INP/OBS CARE 2/35MIN Diagnoses Postoperative infection T81.40XA Perineal fistula N36.0 Peripheral arterial disease I73.9 Coronary artery disease involving [place] coronary artery of [place] heart without angina pectoris I25.10 Coronary Disease-Associated Artery/Lesion type: [place] artery [place] vs. transplanted heart: [place] heart Associated angina: without angina Diabetes type 1, controlled E10.9 Hypertension, unspecified type I10 Hypertension type: unspecified Dyslipidemia E78.5 CKD stage 3 secondary to diabetes E11.22; N18.30 Hypothyroidism, unspecified type E03.9 Hypothyroidism type: unspecified GERD (gastroesophageal reflux disease) K21.9 BPH (benign prostatic hyperplasia) N40.0 Time Spent (min) 35 (4) CAD (coronary artery disease) Coronary Disease-Associated Artery/Lesion type: [place] artery [place] vs. transplanted heart: [place] heart Associated angina: without angina Qualified Code(s): I25.10 - Atherosclerotic heart disease of [place] coronary artery without angina pectoris (6) Hypertension Hypertension type: unspecified Qualified Code(s): I10 - Essential (primary) hypertension (9) Hypothyroidism Hypothyroidism type: unspecified Qualified Code(s): E03.9 - Hypothyroidism, unspecified
--- NOTE | 2025-04-03 11:59 | Infectious Disease Progress Nt ---
Date of Service April 03, 2025 Assessment & Plan (1) MSSA (methicillin susceptible Staphylococcus aureus) infection: (2) Amputation stump infection: Plan Problems: #L AKA 07/2022 with revision 02/14/25 c/b postoperative infection with wound dehiscence s/p I&D 04/02/25 #PAD Micro: 04/02 LLE OR Lateral stump wound cx: Staph aureus, Pseudomonas aeruginosa, low counts of probable skin richardson 04/02 LLE OR 3. Deep L stump wound cx: NGTD. GS no org 04/02 LLE OR 1. Medial superficial L stump wound cx: Staph aureus. GS rare GPCs 03/31 LLE wound cx: moderate MSSA, few Steno, low counts of probable skin richardson 03/31 BCx x2: NGTD Abx: Cefepime 04/03 - present Cefazolin 04/02 - 04/03 Vanc 03/31 Dapto 03/31 - 04/02 Zosyn 03/31 - 04/02 69 yo M with CAD s/p CABG, AVR (2015), DM with insulin pump, COPD, CKD, colostomy, PAD s/p R BKA, L AKA 07/2022 with revision of L AKA 02/14/25 who presented on 03/31 with a few days of increased pain, warmth, swelling, and drainage of the LLE wound, found to have L AKA stump wound infection, s/p I&D 04/02. On presentation, pt was afebrile, HDS. Labs showed WBC 9.34, normal lactate. UA negative. CT LLE with contrast showed postop changes of L AKA with subtle inflammatory changes about the incision, no defined rim-enhancing fluid collection. CT pelvis was also done and noted a L perianal fistula with again seen gas containing fluid collection likely representing abscess, inflammatory changes of bladder suggesting cystitis. Wound culture was sent from the ED, and pt was started on dapto, Zosyn. Orthopedic surgery was consulted. Wound culture began growing MSSA. Pt was taken to the OR on 04/02 for I&D and wound vac placement. Vascular surgery recommending CTA to evaluate iliac stent patency. General surgery was consulted regarding the perianal fistula, recommended continued local wound care. Recommendations: - With OR culture growing Pseudomonas in addition to the Staph aureus, stopped cefazolin and started cefepime - Follow-up OR cultures, Pseudomonas sensitivities Will continue to follow Admission and Anticipated Discharge Date Admission Date: March 31, 2025 Subjective This patient recommendation is based on a telemedicine consult request which was completed asynchronously through chart review and information provided by the primary physician. The patient was not seen or examined today. The evaluation is consultative in nature and all patient care and treatment decisions can either be accepted or rejected by the patient's primary hospital-based treating physician using their own independent medical judgment for their patient. Time Spent Reviewing Chart: 11 - 20 minutes OR cx growing Staph aureus and Pseudomonas aeruginosa Tmax 37.9 Results & Data Vital Signs (Past 12 Hours) Vital Signs Temp Pulse Pulse Resp BP Pulse Ox O2 Del Method 04/03/25 11:18 37.2 C 72 21 163/77 H 96 Room Air 04/03/25 07:41 68 04/03/25 07:13 37 C 69 20 142/78 H 94 Room Air 04/03/25 04:43 36.9 C 04/03/25 02:53 37.9 C H 67 14 134/79 95 Room Air 04/03/25 00:46 71 Medications Administered Current Inpatient Medications Acetaminophen (Acetaminophen 500 Mg Tab) 500 mg PO Q8 PRN PRN Reason: mild Pain Stop: 04/30/25 21:50 Last Admin: 04/03/25 02:58 Dose: 500 mg Aspirin (Aspirin 81 Mg Ectab) [facility] Stop: 05/01/25 08:59 Last Admin: 04/03/25 08:41 Dose: 81 mg Calcitriol (Calcitriol 0.25 Mcg Capsule) 0.25 mcg PO QAM [facility] Stop: 05/01/25 08:59 Last Admin: 04/03/25 08:41 Dose: 0.25 mcg Dextrose (Dextrose 50% 50 Ml Syringe) 25 - 50 ml IV UD PRN; Protocol PRN Reason: Hypoglycemia Protocol Stop: 04/30/25 21:50 Docusate Sodium (Docusate Sodium 100 Mg Cap) 100 mg PO BID PRN PRN Reason: Constipation Stop: 04/30/25 21:50 Glucagon (Glucagon For Inj 1 Mg Vial) 1 mg SQ UD PRN; Protocol PRN Reason: Hypoglycemia Protocol Stop: 04/30/25 21:50 Glucose (Glucose 40% Gel 15 Gm Tube) 15 - 30 gm PO UD PRN; Protocol PRN Reason: Hypoglycemia Protocol Stop: 04/30/25 21:50 Glucose (Glucose 10 Tab/Tube) 4 - 8 tab PO UD PRN; Protocol PRN Reason: Hypoglycemia Protocol Stop: 04/30/25 21:50 Cefepime HCl (Maxipime 2000mg) 2,000 mg in 20 mls @ 5 mls/min IV Q8H [facility]; Protocol Stop: 04/10/25 11:59 Insulin Aspart (Insulin, Rapid-Acting Pump) 0 each SC [facility]; Protocol Stop: 05/01/25 07:29 Last Admin: 04/03/25 08:43 Dose: 7.02 each Insulin Aspart (Insulin Aspart 100 Units/Ml Vial) 0 units SC PRN PRN PRN Reason: Insulin (Rapid-Acting) Pump Refill Stop: 04/30/25 22:05 Levothyroxine Sodium (Levothyroxine Sodium 200 Mcg Tablet) 200 mcg PO DAILYBB [facility] Stop: 05/01/25 06:29 Last Admin: 04/03/25 06:06 Dose: 200 mcg Metoprolol Tartrate (Metoprolol Tartrate 25 Mg Tab) 12.5 mg PO BID [facility] Stop: 04/30/25 21:50 Last Admin: 04/03/25 08:41 Dose: 12.5 mg Miscellaneous (Carbohydrates For Hypoglycemia ) 15 - 30 gm PO UD PRN PRN Reason: Hypoglycemia Protocol Stop: 04/30/25 21:50 Miscellaneous (Continuous Glucose Monitor) 0 each N/A [facility] Stop: 05/01/25 07:29 Last Admin: 04/03/25 08:42 Dose: Not Given Morphine Sulfate (Morphine Sulfate 2 Mg/Ml Carp) 2 mg IV Q3H PRN PRN Reason: Pain (6,7,8,9,10) Stop: 04/14/25 21:50 Ondansetron HCl (Ondansetron Inj 2 Mg/Ml 2 Ml Vial) 4 mg IV Q6H PRN PRN Reason: Nausea And Vomiting Stop: 04/30/25 21:50 Last Admin: 04/01/25 04:12 Dose: 4 mg Oxycodone HCl (Oxycodone Hcl Ir 5 Mg Tab (Immediate Release)) 5 mg PO Q4H PRN PRN Reason: 1st line Pain if refuses APAP Stop: 04/14/25 22:56 Last Admin: 04/02/25 21:47 Dose: 5 mg Pantoprazole Sodium (Pantoprazole 40 Mg Tab) 40 mg PO QAM [facility] Stop: 05/01/25 08:59 Last Admin: 04/03/25 08:41 Dose: 40 mg Tamsulosin HCl (Tamsulosin Hcl 0.4 Mg Cap) 0.4 mg PO QAM [facility] Stop: 05/01/25 08:59 Last Admin: 04/03/25 08:41 Dose: 0.4 mg Trazodone HCl (Trazodone Hcl 100 Mg Tab) 100 mg PO HS PRN PRN Reason: Sleep Stop: 04/30/25 21:50
[2025-04-03] MEDS: CEFEPIME 2000MG 2,000 MG/20 ML SYR IV SCH (12:45)
--- NOTE | 2025-04-04 10:41 | Orthopedic Progress Note ---
Date of Service April 04, 2025 Assessment & Plan (1) Wound of left lower extremity: Plan: IMPRESSION: Postoperative infection s/p left AKA With Irrigation & debridement on 04/02/2025 (Dr. Bergeron) PLAN: Infectious disease recommendations: Can transition to TMP/SMX 1 DS tab PO q12h and levofloxacin 750 mg PO q24h through 04/16 to complete a 10 day course Keep Prevena in place Plavix and aspirin for DVT prophylaxis Will Continue care per primary service. Ok to d/c from ortho standpoint F/U in office in 2 weeks Admission and Anticipated Discharge Date Admission Date: March 31, 2025 Supervising Physician Co-Signing Physician Notes I saw and examined the patient. I agree with the above findings and my plan of care, I discussed with my PA. Subjective This 69-year-old male seen today for follow-up of left above-knee amputation infection there was irrigated and debrided by Dr. Bergeron on April 02. There is a Prevena wound VAC placed over the incision site. Patient states he is doing fairly well. He states that last night he was told that he had a low- grade fever that was treated with oral Tylenol. States that he is currently on 1 IV antibiotic at the recommendation of the infectious disease doctor. States he is having no issues with his right below the knee amputation. Patient also states that he has an abscess on his buttocks that was repacked this morning by the wound care nurse. Currently he denies chest pain, shortness of breath, nausea, vomiting or diarrhea. Review of Systems Review of Systems: All systems reviewed & are unremarkable except as noted in Subjective Physical Exam Physical Exam: Left lower extremity stump: Milagros is functioning properly. There is a scant amount of drainage in the canister. Patient is very tender to palpation circumferentially around the dressing. He is able to lift the stump off of the bed. He has diffuse pain extending from the hip joint to the distal aspect of the stump. There is no erythema or warmth. There is no palpable fluctuance. Results & Data Vital Signs (Past 12 Hours) Vital Signs Temp Pulse Pulse Resp BP Pulse Ox O2 Del Method 04/04/25 07:40 37.0 C 69 20 141/82 H 93 Room Air 04/04/25 05:38 74 04/04/25 04:46 36.8 C 04/04/25 02:47 38.0 C H 76 18 165/84 H 95 Room Air Diagnostic Findings Laboratory Results WBC 8.71 K/ul (4.8-10.8) 04/02/25 10:04 RBC 3.51 M/uL (4.70-6.10) L 04/02/25 10:04 Hgb 9.1 g/dl (14.0-18.0) L 04/02/25 10:04 Hct 28.4 % (42.0-52.0) L 04/02/25 10:04 MCV 80.9 fL (80.0-100.0) 04/02/25 10:04 MCH 25.9 pg (25.0-34.0) 04/02/25 10:04 MCHC 32.0 g/dL (32.0-36.0) 04/02/25 10:04 RDW Std Deviation 41.3 fL (36.4-46.3) 04/02/25 10:04 RDW Coeff of Chan 14.0 % (11.5-14.5) 04/02/25 10:04 Plt Count 256 K/uL (130-400) 04/02/25 10:04 MPV 10.3 fL (9.4-12.4) 04/02/25 10:04 Immature Gran % (Auto) 0.3 % 03/31/25 16:30 Neut % (Auto) 66.0 % 03/31/25 16:30 Lymph % (Auto) 16.2 % 03/31/25 16:30 Charles % (Auto) 10.8 % 03/31/25 16:30 Eos % (Auto) 6.1 % 03/31/25 16:30 Baso % (Auto) 0.6 % 03/31/25 16:30 Neut # (Auto) 6.16 K/uL (1.40-6.50) 03/31/25 16:30 Lymph # (Auto) 1.51 K/uL (1.20-3.40) 03/31/25 16:30 Charles # (Auto) 1.01 K/uL (0.11-0.59) H 03/31/25 16:30 Eos # (Auto) 0.57 K/uL (0.00-0.50) H 03/31/25 16:30 Baso # (Auto) 0.06 K/uL (0.00-0.20) 03/31/25 16:30 Immature Gran # (Auto) 0.03 K/uL (0.01-0.20) 03/31/25 16:30 Sodium 139 mmol/L (136-145) 04/02/25 10:04 Potassium 3.4 mmol/L (3.5-5.1) L 04/02/25 10:04 Chloride 107 mmol/L (98-107) 04/02/25 10:04 Carbon Dioxide 25 mmol/L (21-32) 04/02/25 10:04 Anion Gap 7 (3-11) 04/02/25 10:04 BUN 14 mg/dl (6-23) 04/02/25 10:04 Creatinine 0.65 mg/dl (0.6-1.4) 04/02/25 10:04 Est Cr Clr Drug Dosing 99.6 ml/min 04/02/25 10:04 eGFR 103.28 04/02/25 10:04 BUN/Creatinine Ratio 21.5 (10-20) H 04/02/25 10:04 Glucose 157 mg/dl (70-99(Fasting)) H 04/02/25 10:04 POC Glucose 161 mg/dl (70-99) H 04/04/25 07:49 Lactate 1.4 mmol/L (0.4-2.0) 03/31/25 16:30 Calcium 8.4 mg/dl (8.6-10.3) L 04/02/25 10:04 Magnesium 1.7 mg/dl (1.7-2.4) 03/31/25 16:30 Total Bilirubin 0.3 mg/dl (0.2-1.0) 03/31/25 16:30 Direct Bilirubin 0.1 mg/dl (0-0.2) 03/31/25 16:30 AST 12 U/L (13-39) L 03/31/25 16:30 ALT 12 U/L (7-52) 03/31/25 16:30 Alkaline Phosphatase 121 U/L (34-104) H 03/31/25 16:30 Troponin I High Sens 6.7 pg/ml (0-20) 03/31/25 16:30 Total Protein 6.9 gm/dl (6.0-8.3) 03/31/25 16:30 Albumin 3.1 gm/dl (3.4-5.0) L 03/31/25 16:30 Procalcitonin 0.08 ng/ml (0-0.5) 03/31/25 16:30 Urine Color Yellow 03/31/25 19:51 Urine Appearance Clear (Clear) 03/31/25 19:51 Urine pH 6.0 (4.5-7.5) 03/31/25 19:51 Ur Specific [place] 1.045 (1.000-1.030) H 03/31/25 19:51 Urine Protein Negative (Negative) 03/31/25 19:51 Urine Glucose (UA) Negative (Negative) 03/31/25 19:51 Urine Ketones Negative (Negative) 03/31/25 19:51 Urine Blood Negative (Negative) 03/31/25 19:51 Urine Nitrite Negative (Negative) 03/31/25 19:51 Urine Bilirubin Negative (Negative) 03/31/25 19:51 Urine Urobilinogen Negative (Negative) 03/31/25 19:51 Ur Leukocyte Esterase Negative (Negative) 03/31/25 19:51 Urine Comment 03/31/25 19:[address] 03/31/25 16:22 CT PELVIS: TECHNIQUE: Contrast-enhanced CT examination of the pelvis was performed. IV CONTRAST: 100 mL of OMNIPAQUE 300. HISTORY: Pelvic pain COMPARISON: CT abdomen pelvis August 31, 2023 FINDINGS: URINARY BLADDER: Inflamed with moderate wall thickening. There are 3 mm calcific densities over the dependent area of the uterine bladder posteriorly which may represent urine and bladder calculi. REPRODUCTIVE ORGANS: Mildly enlarged prostate. AORTA and ILIAC ARTERIES: No aneurysmal dilatation of the visualized portion of the aorta or iliac arteries seen. Extensive atherosclerosis with severe stenoses. LYMPH NODES: No pelvic lymph adenopathy identified. GASTROINTESTINAL: The visualized bowel is normal in caliber. There is a diverting loop colostomy in the left lower quadrant. PERITONEUM: No ascites is seen. No peritoneal masses seen. PELVIC WALL: No hernia is identified. There is a left perianal fistula with a thick walled gas containing fluid structure measuring 9.5 x 1.5 x 9.5 cm (AP x TV x CC). No significant inflammatory changes noted in the inguinal regions bilaterally with redemonstrated scarring materials from vascular surgeries/procedures in these areas. At the site of left above-knee amputation, there are mild phlegmonous/inflammatory changes of the subcutaneous fat without drainable/organized fluid collection identified. There are ulcerative skin defect in this area. Extensive atherosclerosis and bypass surgeries are noted again in the inguinal regions and in the partially included lower extremities. OSSEOUS STRUCTURES: No acute or suspicious process identified. 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 No significant inflammatory changes are noted in the inguinal regions bilaterally where there are redemonstrated postsurgical changes from bypass creations. Similar scarring is seen in this area compared to the previous examination from 2022. At the site of left above-knee amputation, there are mild phlegmonous/inflammatory changes of the subcutaneous fat without drainable/organized fluid collection identified. There are ulcerative skin defect in this area. Inflammatory changes of the bladder suggesting cystitis. Electronically signed by Samir Osei 03-31-2025 6:[address] 03/31/25 18:08 CT of the pelvis and left lower extremity with contrast Technique: Postcontrast axial images of the pelvis and left lower extremity. Coronal and sagittal reformatted images made available for review No comparison Findings: Postoperative changes right common femoral endarterectomy with a prosthetic graft extending along the medial aspect of the thigh. This is not opacified with contrast on this exam is likely due to occluded. Postoperative changes left above-knee amputation with prior left common femoral artery endarterectomy and bypass graft. Prior left SFA stenting who was also noted and occluded. Subtle inflammatory changes about the anastomosis of the left above-knee amputation stump without defined fluid collection. The profunda femoris artery does not appear to opacify on this exam. Postoperative changes kissing iliac stents with dense calcification of the iliac arteries bilaterally. Postoperative changes partial colectomy with left lower quadrant colostomy. Paron ventral wall thickening of the urinary bladder which is under distended. Findings may represent cystitis. Bladder calcification present. Bone windows demonstrate no focal abnormality Impression: Occlusion of the right lower extremity bypass graft. Extensive occlusion of the left profunda femoris with only minimal filling of the left common femoral artery. Left superficial femoral artery is also occluded. Postoperative changes left above-knee amputation with subtle inflammatory changes about the incision. No defined rim-enhancing fluid collection identified on this exam. Findings may have been a cellulitis within the same Postoperative changes kissing iliac stents. The patency of the stents is difficult to evaluate in these heavily calcified vessels. Electronically signed by Robert Colorado 03-31-2025 9:04 PM Abdomen/Pelvis CTA 04/02/25 15:17 EXAMINATION: CT angiogram of the abdomen and pelvis performed before and after the administration of IV contrast TECHNIQUE: Helical CT images from the lung bases through the symphysis pubis were obtained with and without contrast. Coronal and sagittal reformatted images were generated at a workstation for further assessment. Dose reduction techniques were achieved by using automatic exposure control and/or adjustment of mA and/or kV according to patient size and/or use of iterative reconstruction technique. COMPARISON: CT of the pelvis from 03/31/2025 HISTORY: AI OD FINDINGS: Lower chest: Small right pleural effusion. Liver: No suspicious liver lesions. Portal veins appear patent. Gallbladder: Cholecystectomy. Spleen: Normal size. Pancreas: No suspicious pancreatic lesions. The pancreatic duct is not dilated. Adrenal glands: No adrenal nodules. Kidneys: No hydronephrosis or obstructing renal stones. Bladder / Pelvic organs: Unremarkable. Bowel: No bowel obstruction. There is mild wall thickening as well as surrounding inflammatory fat stranding about the mesorectal space. There is a left perianal fistula with a thick walled gas containing fluid structure that is similar to prior, again with insinuation between the prostate gland and the obturator musculature seen, and is partially again seen to extend to the left peroneum, and at the left base of the scrotum. No finding of active contrast extravasation in the bowel. Note that there were a few areas of high density material, as seen in the stomach, the hepatic flexure of the large bowel, and rectum, which are present on the noncontrast images suggesting ingested material. Diverting loop colostomy of the left abdominal wall. There is fluid throughout the large bowel, which may be related to a diarrheal illness. Lymph nodes: No retroperitoneal, mesenteric, or pelvic lymphadenopathy. Peritoneum / Retroperitoneum: No free fluid or air within the abdomen. Vessels: No infrarenal aortic aneurysm. Heavy aortoiliac atherosclerotic calcifications. Stent of the right common iliac artery appears grossly patent. At the right groin, there is evidence of a bypass graft change, which is occluded. The [place] superficial femoral artery is also occluded. The right deep femoral artery appears patent with heavy calcifications. At the left groin, there is a short segment occlusion of the common femoral artery. A bypass graft appears occluded, and the [place] superficial femoral artery appears occluded. Patent deep femoral artery with heavy calcifications seen proximally in the [id number]. Bones and soft tissues: No suspicious lesion in the bones. IMPRESSION: Similar appearing left perianal fistula, as above. Wall thickening and extensive inflammatory fat stranding involving the rectum, suggesting associated proctitis. No active extravasation in the bowel to suggest an acute GI bleed. Electronically signed by Juni Cavazos 04-02-2025 5:40 PM
--- NOTE | 2025-04-04 11:03 | Hospitalist Progress Note ---
Date of Service April 04, 2025 Assessment & Plan (1) Postoperative infection: (2) Perineal fistula: (3) Peripheral arterial disease: (4) CAD (coronary artery disease): (5) Diabetes type 1, controlled: (6) Hypertension: (7) Dyslipidemia: (8) CKD stage 3 secondary to diabetes: (9) Hypothyroidism: (10) GERD (gastroesophageal reflux disease): (11) BPH (benign prostatic hyperplasia): Plan 69yo male with CKD, HTN, HLP, CAD, PAD s/p right BKA and left AKA with recent revision 02/14/25 presenting with increased redness, warmth, swelling of the surgical site of left AKA revision. Some wound dehiscence with minimal drainage. 1.Post-operative infection -Admitted with some drainage from the wound stump -He is now s/p Left Stump Irrigation and debridement with wound vac placement -wound cultures growing staph aureus and Pseudomonas bruce sensitive -Hopefully, ID can provide us with an oral antibiotics option for d/c #Buttock wound/perineal fistula with possible abscess - ongoing issue for which patient follows with colorectal surgery at [facility]. -He has been seen by our surgical team for evaluation as well, conservative mgt for now -Turn and position q 2 hours -Wound care daily and PRN -Specialty bed appreciated Aortoilliac disease CTA shows patent illiac stent #Colostomy in place -Routine management #Diabetes - overall well controlled. Last [id number] on 01/24/25 -Patient may use his own insulin pump and continuous glucose monitoring -Hypoglycemia protocols in place #CAD/PAD -Continue ASA 81mg po daily -Continue Metoprolol -Hold Atorvastatin while on Daptomycin #Hypertension -Hold Chlorthalidone for now #Hyperlipidemia -Hold Atorvastatin while on Daptomycin #Hypothyroidism -Continue Synthroid 200mcg po daily -Hold Plavix 75mg po daily #GERD -Continue PRotonix 40mg po daily #BPH -Continue Flomax 0.4mg po daily Disposition: Will need the wound vac for 2 weeks,awaiting final antibiotics recs from ID Admission and Anticipated Discharge Date Admission Date: March 31, 2025 Subjective Patient seen and examined. He is better, awaiting final recs from ID Review of Systems Review of Systems: All systems reviewed are negative, apart from the ones contained in the history. Physical Exam Physical Exam: The patient is awake, alert and oriented 3, well developed and well nourished, normocephalic and atraumatic, lying in bed and in no acute distress. HEENT--PERRL, EOMI, mucous membranes and oropharynx mildly dry Neck--supple. No JVD. No bruits. Thyroid normal, trachea midline, no adenopathy. Heart--normal S1 and S2. No murmurs, rubs or gallops. Lungs--clear bilaterally, no respiratory distress, no accessory muscle use. Abdomen--normal bowel sounds and soft. colostomy Extremities--left AKA, right BKA Dermatologic--normal skin turgor, normal color, no abnormal lymph nodes, no rash. Neurologic--cranial nerves II through XII grossly intact. Rheumatologic--normal range of motion. Psychiatric--normal affect. Results & Data Results & Data Vital Signs (Past 12 Hours) Vital Signs Temp Pulse Pulse Resp BP Pulse Ox O2 Del Method 04/04/25 07:40 98.6 F 69 20 141/82 H 93 Room Air 04/04/25 05:38 74 04/04/25 04:46 98.2 F 04/04/25 02:47 100.4 F H 76 18 165/84 H 95 Room Air PG Care Time/CCT Total # of Minutes Spent Total Time Spent with Patient: Total time spent is greater than 50% in coordination of care (as documented) at patient's floor/unit and/or counseling patient: Coding Level of Care Code 65087 SUB INP/OBS CARE 2/35MIN Diagnoses Postoperative infection T81.40XA Perineal fistula N36.0 Peripheral arterial disease I73.9 Coronary artery disease involving [place] coronary artery of [place] heart without angina pectoris I25.10 Coronary Disease-Associated Artery/Lesion type: [place] artery [place] vs. transplanted heart: [place] heart Associated angina: without angina Diabetes type 1, controlled E10.9 Hypertension, unspecified type I10 Hypertension type: unspecified Dyslipidemia E78.5 CKD stage 3 secondary to diabetes E11.22; N18.30 Hypothyroidism, unspecified type E03.9 Hypothyroidism type: unspecified GERD (gastroesophageal reflux disease) K21.9 BPH (benign prostatic hyperplasia) N40.0 Time Spent (min) 35 (4) CAD (coronary artery disease) Coronary Disease-Associated Artery/Lesion type: [place] artery [place] vs. transplanted heart: [place] heart Associated angina: without angina Qualified Code(s): I25.10 - Atherosclerotic heart disease of [place] coronary artery without angina pectoris (6) Hypertension Hypertension type: unspecified Qualified Code(s): I10 - Essential (primary) hypertension (9) Hypothyroidism Hypothyroidism type: unspecified Qualified Code(s): E03.9 - Hypothyroidism, unspecified
--- NOTE | 2025-04-04 11:13 | Infectious Disease Progress Nt ---
Date of Service April 04, 2025 Assessment & Plan (1) MSSA (methicillin susceptible Staphylococcus aureus) infection: (2) Amputation stump infection: Plan Problems: #L AKA 07/2022 with revision 02/14/25 c/b postoperative infection with wound dehiscence s/p I&D 04/02/25 #PAD Micro: 04/02 LLE OR Lateral stump wound cx: MSSA (R tetra, S TMP/SMX), Pseudomonas aeruginosa (bruce-S), low counts of probable skin richardson 04/02 LLE OR 3. Deep L stump wound cx: NGTD. GS no org 04/02 LLE OR 1. Medial superficial L stump wound cx: MSSA. GS rare GPCs 03/31 LLE wound cx: moderate MSSA, few Steno maltophilia (S TMP/SMX), low counts of probable skin richardson 03/31 BCx x2: NGTD Abx: Cefepime 04/03 - present Cefazolin 04/02 - 04/03 Vanc 03/31 Dapto 03/31 - 04/02 Zosyn 03/31 - 04/02 69 yo M with CAD s/p CABG, AVR (2015), DM with insulin pump, COPD, CKD, colostomy, PAD s/p R BKA, L AKA 07/2022 with revision of L AKA 02/14/25 who presented on 03/31 with a few days of increased pain, warmth, swelling, and drainage of the LLE wound, found to have L AKA stump wound infection, s/p I&D 04/02. On presentation, pt was afebrile, HDS. Labs showed WBC 9.34, normal lactate. UA negative. CT LLE with contrast showed postop changes of L AKA with subtle in flammatory changes about the incision, no defined rim-enhancing fluid collection. CT pelvis was also done and noted a L perianal fistula with again seen gas containing fluid collection likely representing abscess, inflammatory changes of bladder suggesting cystitis. Wound culture was sent from the ED, and pt was started on dapto, Zosyn. Orthopedic surgery was consulted. Pt was taken to the OR on 04/02 for I&D and wound vac placement. Vascular surgery recommending CTA to evaluate iliac stent patency. General surgery was consulted regarding the perianal fistula, recommended continued local wound care. Recommendations: - Can transition to TMP/SMX 1 DS tab PO q12h and levofloxacin 750 mg PO q24h through 04/16 to complete a 10 day course Will sign off. Admission and Anticipated Discharge Date Admission Date: March 31, 2025 Subjective This patient recommendation is based on a telemedicine consult request which was completed asynchronously through chart review and information provided by the primary physician. The patient was not seen or examined today. The evaluation is consultative in nature and all patient care and treatment decisions can either be accepted or rejected by the patient's primary hospital-based treating physician using their own independent medical judgment for their patient. Time Spent Reviewing Chart: 11 - 20 minutes Febrile to 38 overnight Results & Data Vital Signs (Past 12 Hours) Vital Signs Temp Pulse Pulse Resp BP Pulse Ox O2 Del Method 04/04/25 07:40 37.0 C 69 20 141/82 H 93 Room Air 04/04/25 05:38 74 04/04/25 04:46 36.8 C 04/04/25 02:47 38.0 C H 76 18 165/84 H 95 Room Air Medications Administered Current Inpatient Medications Acetaminophen (Acetaminophen 500 Mg Tab) 500 mg PO Q8 PRN PRN Reason: mild Pain Stop: 04/30/25 21:50 Last Admin: 04/04/25 03:18 Dose: 500 mg Aspirin (Aspirin 81 Mg Ectab) [facility] Stop: 05/01/25 08:59 Last Admin: 04/04/25 08:10 Dose: 81 mg Calcitriol (Calcitriol 0.25 Mcg Capsule) 0.25 mcg PO QAM [facility] Stop: 05/01/25 08:59 Last Admin: 04/04/25 08:10 Dose: 0.25 mcg Dextrose (Dextrose 50% 50 Ml Syringe) 25 - 50 ml IV UD PRN; Protocol PRN Reason: Hypoglycemia Protocol Stop: 04/30/25 21:50 Docusate Sodium (Docusate Sodium 100 Mg Cap) 100 mg PO BID PRN PRN Reason: Constipation Stop: 04/30/25 21:50 Glucagon (Glucagon For Inj 1 Mg Vial) 1 mg SQ UD PRN; Protocol PRN Reason: Hypoglycemia Protocol Stop: 04/30/25 21:50 Glucose (Glucose 40% Gel 15 Gm Tube) 15 - 30 gm PO UD PRN; Protocol PRN Reason: Hypoglycemia Protocol Stop: 04/30/25 21:50 Glucose (Glucose 10 Tab/Tube) 4 - 8 tab PO UD PRN; Protocol PRN Reason: Hypoglycemia Protocol Stop: 04/30/25 21:50 Cefepime HCl (Maxipime 2000mg) 2,000 mg in 20 mls @ 5 mls/min IV Q8H [facility]; Protocol Stop: 04/10/25 11:59 Last Admin: 04/04/25 04:40 Dose: 5 mls/min Insulin Aspart (Insulin, Rapid-Acting Pump) 0 each SC [facility]; Protocol Stop: 05/01/25 07:29 Last Admin: 04/04/25 09:05 Dose: 8.52 each Insulin Aspart (Insulin Aspart 100 Units/Ml Vial) 0 units SC PRN PRN PRN Reason: Insulin (Rapid-Acting) Pump Refill Stop: 04/30/25 22:05 Levothyroxine Sodium (Levothyroxine Sodium 200 Mcg Tablet) 200 mcg PO DAILYBB [facility] Stop: 05/01/25 06:29 Last Admin: 04/04/25 04:41 Dose: 200 mcg Metoprolol Tartrate (Metoprolol Tartrate 25 Mg Tab) 12.5 mg PO BID [facility] Stop: 04/30/25 21:50 Last Admin: 04/04/25 08:09 Dose: 12.5 mg Miscellaneous (Carbohydrates For Hypoglycemia ) 15 - 30 gm PO UD PRN PRN Reason: Hypoglycemia Protocol Stop: 04/30/25 21:50 Miscellaneous (Continuous Glucose Monitor) 0 each N/A [facility] Stop: 05/01/25 07:29 Last Admin: 04/04/25 08:06 Dose: 136 each Morphine Sulfate (Morphine Sulfate 2 Mg/Ml Carp) 2 mg IV Q3H PRN PRN Reason: Pain (6,7,8,9,10) Stop: 04/14/25 21:50 Ondansetron HCl (Ondansetron Inj 2 Mg/Ml 2 Ml Vial) 4 mg IV Q6H PRN PRN Reason: Nausea And Vomiting Stop: 04/30/25 21:50 Last Admin: 04/01/25 04:12 Dose: 4 mg Oxycodone HCl (Oxycodone Hcl Ir 5 Mg Tab (Immediate Release)) 5 mg PO Q4H PRN PRN Reason: 1st line Pain if refuses APAP Stop: 04/14/25 22:56 Last Admin: 04/04/25 09:27 Dose: 5 mg Pantoprazole Sodium (Pantoprazole 40 Mg Tab) 40 mg PO QAM [facility] Stop: 05/01/25 08:59 Last Admin: 04/04/25 08:10 Dose: 40 mg Tamsulosin HCl (Tamsulosin Hcl 0.4 Mg Cap) 0.4 mg PO QAM [facility] Stop: 05/01/25 08:59 Last Admin: 04/04/25 08:09 Dose: 0.4 mg Trazodone HCl (Trazodone Hcl 100 Mg Tab) 100 mg PO PRN PRN Reason: Sleep Stop: 04/30/25 21:50
--- NOTE | 2025-04-05 07:17 | Electrocardiogram Report ---
Test Reason : Blood Pressure : */* mmHG Vent. Rate : 75 BPM Atrial Rate : 75 BPM P-R Int : 188 ms QRS Dur : 144 ms QT Int : 436 ms P-R-T Axes : 55 61 5 degrees QTcB Int : 486 ms Sinus rhythm with Premature atrial complexes Right bundle branch block Anterior infarct , age undetermined T wave abnormality, consider lateral ischemia Abnormal ECG When compared with ECG of 26-Jan-2025 17:58, Premature atrial complexes are now Present Confirmed by Bobby Lance ([id number]) on 04/05/2025 7:17:22 AM Referred By: REFERRED SELF Confirmed By: Bobby Lance
--- NOTE | 2025-04-05 10:07 | Discharge Summary ---
Date of Service April 05, 2025 Admission HPI Per Admitting Provider Ron Chowdhury is a 69yo male with history of peripheral arterial disease s/p bilateral LE stenting and LLE bypass stenting s/p right BKA, HTN, HLP, DM with insulin pump in place, CAD s/p CABG x 1 in 2016, s/p bioprosthetic AVR in 2016, COPD s/p left AKA by Dr. Soto in July 2022. Patient had revision of left AKA performed by Dr. Soto on 02/14/2025. The surgery was well tolerated with no complications. Patient resides at home and has family members that assist him with wound care as well as home nursing twice weekly. Patient reports 2-3 days of increased pain, warmth, swelling and drainage of the LLE wound. He was seen by his home nurse today and was noted to have some purulent drainage and wound dehiscence. They contacted Dr. Soto's office and were instructed to come to the ER. In the ER patient is afebrile, HD stable. He has a chronic perineal/sacral wound ongoing for the last 2 years for which he follows with [facility]-rectal surgery ER Course: Patient has been evaluated by Orthopedic Surgery as well as General Surgery NSS 500mL Zosyn 4.5gm Vancomycin 1750mg Morphine 2mg IV Zofran 4mg IV Admission Exam (Per Admitting) Constitutional The patient is awake, alert and oriented 3, well developed and well nourished, normocephalic and atraumatic, lying in bed and in no acute distress. HEENT--PERRL, EOMI, mucous membranes and oropharynx mildly dry Neck--supple. No JVD. No bruits. Thyroid normal, trachea midline, no adenopathy. Heart--normal S1 and S2. No murmurs, rubs or gallops. Lungs--clear bilaterally, no respiratory distress, no accessory muscle use. Abdomen--normal bowel sounds and soft. Extremities--left AKA, right BKA Dermatologic--normal skin turgor, normal color, no abnormal lymph nodes, no rash. Neurologic--cranial nerves II through XII grossly intact. Rheumatologic--normal range of motion. Psychiatric--normal affect. Discharge Data Consultations 03/31/25 16:44 Consult Orthopedic Surgery Routine 03/31/25 19:22 ED Decision to Admit Stat 03/31/25 19:55 Consult General Surgery Routine 04/02/25 10:03 Consult Vascular Surgery Routine 04/02/25 11:43 Consult Infectious Diseases Routine Procedures Performed Operation Date: 04/02/25 07:00 Actual Procedures p Left Stump Irrigation and debridiment with wound vac placement(Left) - Marko Bergeron MD Hospital Course (1) Postoperative infection: (2) Perineal fistula: (3) Peripheral arterial disease: (4) CAD (coronary artery disease): (5) Diabetes type 1, controlled: (6) Hypertension: (7) Dyslipidemia: (8) CKD stage 3 secondary to diabetes: (9) Hypothyroidism: (10) GERD (gastroesophageal reflux disease): (11) BPH (benign prostatic hyperplasia): Plan 69yo male with CKD, HTN, HLP, CAD, PAD s/p right BKA and left AKA with recent revision 02/14/25 presenting with increased redness, warmth, swelling of the surgical site of left AKA revision. Some wound dehiscence with minimal drainage. 1.Post-operative infection -Admitted with some drainage from the wound stump -He is now s/p Left Stump Irrigation and debridement with wound vac placement -wound cultures growing staph aureus and Pseudomonas bruce sensitive -Discharge on PO Bactrim Ds and PO levofloxacin 750mg daily till 04/16 #Buttock wound/perineal fistula with possible abscess - ongoing issue for which patient follows with colorectal surgery at [facility]. -He has been seen by our surgical team for evaluation as well, conservative mgt for now -Turn and position q 2 hours -Wound care daily and PRN -Specialty bed appreciated Aortoilliac disease CTA shows patent illiac stent #Colostomy in place -Routine management #Diabetes - overall well controlled. Last [id number] on 01/24/25 -Patient may use his own insulin pump and continuous glucose monitoring -Hypoglycemia protocols in place #CAD/PAD -Continue ASA 81mg po daily -Continue Metoprolol -Hold Atorvastatin while on Daptomycin #Hypertension -Hold Chlorthalidone for now #Hyperlipidemia -Hold Atorvastatin while on Daptomycin #Hypothyroidism -Continue Synthroid 200mcg po daily -Hold Plavix 75mg po daily #GERD -Continue PRotonix 40mg po daily #BPH -Continue Flomax 0.4mg po daily Disposition: d/c home with Coding Level of Care Code 89526 INP/OBS DISCH >30 MIN Diagnoses Postoperative infection T81.40XA Perineal fistula N36.0 Peripheral arterial disease I73.9 Coronary artery disease involving [place] coronary artery of [place] heart without angina pectoris I25.10 Coronary Disease-Associated Artery/Lesion type: [place] artery [place] vs. transplanted heart: [place] heart Associated angina: without angina Diabetes type 1, controlled E10.9 Hypertension, unspecified type I10 Hypertension type: unspecified Dyslipidemia E78.5 CKD stage 3 secondary to diabetes E11.22; N18.30 Hypothyroidism, unspecified type E03.9 Hypothyroidism type: unspecified GERD (gastroesophageal reflux disease) K21.9 BPH (benign prostatic hyperplasia) N40.0 Time Spent (min) 35
[2025-04-05 10:15] VITALS: PULSE 77
[2025-04-05 11:20] VITALS: BP 134/75; RESP 18; TEMP 97.5; O2SAT 94
--- NOTE | 2025-04-07 12:40 | Coding Query ---
CODING QUERY To promote full compliance with coding requirements relating to patient care, provider participation is requested in all cases of lockstitch machine operator uncertainty. Please assist us with the question(s) below: Coding Question(s): Image report states perianal fistula (codes to digestive chapter), documentation states perineal fistula (codes to urinary chapter). Stated that this is an ongoing issue in which the patient follows with colorectal surgery at [facility]. Please clarify the exact diagnostic term that should be coded for this patient. Physician's Response(s): ( x ) Perianal fistula ( ) Perineal fistula ( ) Other, please specify Thank you Melba Ramires Principal Diagnosis: "that condition established after study, to be chiefly responsible for occasioning the admission of the patient to the hospital for care." Co-Existing Principal Diagnosis: "when two or more diagnoses equally meet the criteria for principal diagnosis as determined by the circumstances of admission, diagnostic work up, and/or therapy provided, and the Alphabetic Index, Tabular List, or another coding guideline does not provide sequencing direction, any one of the diagnoses may be sequenced first." "When the physician has documented what appears to be a current diagnosis in the body of the record, but has not included the diagnosis in the final diagnostic statement, the physician should be asked whether the diagnosis should be added." (Source Coding [facility] 2 QTR90. p3-4) [facility]
== END 2025-04-05 14:20 | disposition home health service (06) | DRG 464 ==
LOC: ED 16:12 → SUATTDRO 20:30 → 2W 20:30

== ENCOUNTER 2025-05-18 02:16 | Inpatient (IN) ==
--- NOTE | 2025-05-18 02:36 | Emergency Department Note ---
Impression & Plan Acute hypotension Admission ED Provider Note HPI: History obtained from EMS report. 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 Per EMS report they were called to the patient's residence because he was difficult to arouse per family that lives at the house. Upon EMS arrival the patient was somewhat lethargic but he was conscious. They were unable to get a blood pressure on the patient in the field. On arrival here to the ED, the patient is alert, he is answering questions but not with much detail, he is noted to be hypotensive in the 50s, patient states he has pain in his pelvis but denies any other complaints. Patient is not noted to have any focal deficits on arrival. ROS: - Per HPI Differential Diagnosis: Sepsis, necrotizing fasciitis of the pelvis, abscess, drug overdose, acute blood loss anemia, amongst other potential pathologies. *Outpatient medications and allergy history reviewed. PE: General: Alert, disheveled appearing HEENT: Normocephalic, trachea midline Eyes: Extraocular eye movement is intact, no scleral erythema Pulmonary: Clear to auscultation bilaterally, no wheezing Cardio: Regular rate and rhythm GI: Abdomen is soft to palpation, ostomy to the left abdomen with stool output noted, large debrided ulcer to the sacrum/buttocks without purulent drainage noted, there is no crepitus to the surrounding soft tissues with palpation : No suprapubic tenderness MSK: Bilateral lower extremity amputations no evidence of trauma or malformation of the extremities, no edema Skin: Pelvic findings as above, no evidence of rash Neuro: Alert, no focal deficits Psychiatric: Cooperative INDEPENDENT INTERPRETATIONS: desk monitor: (As interpreted by myself): - An order was placed for continuous cardiac monitoring - Patient was noted to be in sinus rhythm with a rate of 105 EKG: (As interpreted by myself): Rate: 98 Rhythm: Normal sinus rhythm Intervals: QRS 136 ms, otherwise within normal limits ST changes: No ST elevation Time: 0223 Chest x-ray: (As interpreted by myself): No focal infiltrate Interventions provided in ED: - IV fluid bolus greater than 30 cc/kg, IV cefepime, IV vancomycin, IV Protonix bolus and drip, packed red blood cell transfusion, IV Levophed Medical Decision Making: IV was established and lab work obtained, patient was placed on residential monitor. Patient was started on IV fluid resuscitation as well as peripheral vasopressor support with Levophed given his markedly low blood pressure on arrival. Blood pressure did gradually improve, lab work shows a white blood cell count of 19.05, hemoglobin is 7.4 (baseline appears to be around 9.0-10). VBG shows a pH of 7.14, pCO2 is normal. CMP shows serum bicarbonate level 17, glucose is 159, creatinine is normal at 1.3, lactic acid is markedly elevated at 10.6, magnesium is normal, troponin is negative x 1. Procalcitonin is low at 0.15. Patient had significant pain in the area of his sacral debrided ulcer with fistulous track during exam, therefore to investigate for source of infection, CT imaging of the abdomen pelvis was obtained. While the patient was at CT he had an episode of hematemesis. This was low-volume, patient states that he has not had any bleeding per ostomy bag or any hematemesis that he can remember over the past several days. Given this with his new anemia, packed red blood cell transfusion was ordered, patient's daughter who was here at the hospital signed consent for the transfusion. At this point I did reach out to the ICU midlevel provider on-call, Angelica Sandoval PA-C and she did evaluate the patient at the bedside. CT imaging of the abdomen and pelvis was obtained, there is no mention of any findings consistent with necrotizing fasciitis, fistulas appear stable, there is mention per the interpreting radiologist of possible splenic infarct, otherwise no critical pathology is noted. On my reevaluation prior to admission, the patient's blood pressures improved to 148/54. Heart rate is mildly tachycardic but the patient remains otherwise stable and saturating well on room air at this point. Patient was also discussed with the on-call hospitalist, Dr. Wei, patient was placed for admission in improved condition to the ICU for further management. Patient has not had any further hematemesis here in the ED, PRBCs are being transfused, patient does not appear at this time to require an emergent endoscopy. Will defer to the ICU and hospitalist team at this point for further inpatient management. Consultants/Discussions held with other healthcare providers: - [employer] [employer], Dr. Rios/Angelica Sandoval PA-C - Hospitalist, Dr. Wei Disposition discussion held by myself with: - Patient and patient's family * CRITICAL CARE TIME: ( 58 ) minutes - Stabilization of patient with hypotension and symptomatic anemia with hematemesis requiring packed red blood cell transfusion, aggressive IV fluid resuscitation, and vasopressor support. Time spent at the bedside, interpretation of diagnostic studies, discussion with other healthcare providers and arrangement of ICU admission. Diagnosis: 1. Altered mental status, acute 2. Hypotension, acute 3. Anemia, acute 4. Hematemesis, acute 5. Leukocytosis, acute 6. Lactic acidosis, acute, severe Disposition: Admission Tyree Perry DO Emergency Medicine Past Med/Surg History Problem List Acute hypotension (Acute) Neutrophilic leukocytosis NSAID long-term use Upper gastrointestinal bleeding Lactic acidosis Acute kidney injury Shock Aortoiliac stenosis Postprocedural wound infection (Acute) Postoperative infection Wound of left lower extremity Adrenal adenoma Environmental allergies Gastroparesis Pressure ulcer of BKA stump, stage 3 Perineal fistula (Acute) following with Dr.Buzas Arshad Colostomy in place Bacteroides infection 08/2023 Escherichia coli (E. coli) infection 2022 MSSA (methicillin susceptible Staphylococcus aureus) infection Intertrigo Cellulitis 08/2023 Fungal dermatitis S/P laparoscopic cholecystectomy Encounter for pre-operative examination Chronic kidney disease, stage III (moderate) Coronary arteriosclerosis Chronic ulcer of sacral region Muscle spasm Problem related to social environment, unspecified Wound of left groin (Acute) following with Dr.Buzas James Ambulatory dysfunction BPH (benign prostatic hyperplasia) Urinary retention Stage III pressure ulcer of left buttock Gastric wall thickening Perirectal abscess (Acute) following with Dr.Buzas James Rectal bleeding (Acute) Marychuy-rectal abscess (Acute) following with Dr.Buzas James Above knee amputation of left lower extremity Surgical wound, non healing (Acute) Stage III pressure ulcer Hypokalemia (Acute) Anemia Tinea cruris Proctitis Iron deficiency COPD (chronic obstructive pulmonary disease) Peripheral arterial disease (Chronic) Elevated parathyroid hormone Nephrolithiasis Osteoporosis Diabetes type 1, controlled Diabetic autonomic neuropathy associated with type 1 diabetes mellitus (Chronic) Proliferative diabetic retinopathy associated with type 1 diabetes mellitus (Chronic) Aortic stenosis s/p porcine valve replacement (2015) + CABG x1 Follows with [facility] History of aortic valve [place] Medical History CKD stage 3 secondary to diabetes PAD (peripheral artery disease) s/p B/L LE stenting and LLE bypass Ambulatory dysfunction WC bound Colostomy in place Insulin pump in place Chronic wound left groin area, recently under anesthesia thru [facility] 01/09/25, for evaluation of his wound, "which surgeon stated no surgical intervention necessary at that time" History of aortic stenosis s/p porcine valve replacement (2015) + CABG x1 Follows with [facility] cardio Diabetic peripheral neuropathy associated with type 1 diabetes mellitus History of COPD History of BPH Hx of chronic kidney disease Above knee amputation of left lower extremity History of nephrolithiasis Gastroparesis Anemia 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) Hx MRSA infection 01/2022 (left heel) History of colon polyps History of Clostridium difficile infection s/p treatment (2020) Below-knee amputation of right lower extremity Clostridium difficile colitis hx, 2020, resolved DVT prophylaxis hx Folate deficiency GERD (gastroesophageal reflux disease) Vitamin D deficiency Surgical History History of surgery EUA, debridement of perineal cyst 01/09/25: under GA at [facility]; no issues reported History of below-knee amputation of right lower extremity History of left above knee amputation 07/2022 History of intestinal surgery (2022) w/creation colostomy, [facility] Hx laparoscopic cholecystectomy (07/17/23) Robotic assisted Laparoscopic Cholecystectomy(Not Applicable) - Markus Dawson DO, FACS Hx of cystoscopy w/stent placement; stent then removed History of skin graft Split Thickness Skin Graft of Left Lateral Ankle (11/18/20): LMA#5, atraumatic x1 at [facility] Hx of surgical procedure Left Leg Wound Debridement and Irrigation History of arterial bypass of lower extremity Left femoral to PT composite bypass graft (06/2020), Right femoral to PT bypass graft 01/2021, Removal right fem-pop bypass 03/2021 (graft occluded) History of carpal tunnel release R/L History of tooth extraction History of tonsillectomy History of myringotomy w/tubes bilat. S/P femoropopliteal bypass surgery Right fem-pop bypass graft (01/19/21): Grade 2 view, MAC 3.0, ETT 8.0 at [facility] Left femoral to PT composite bypass graft (06/2020) History of cardiac cath x2, most recent 2016 > no stents (subsequent CABG with AVR in 2016); [facility] History of umbilical hernia repair S/P insertion of iliac artery stent B/L iliac stent placement (2014) H/O endarterectomy R common femoral (11/2018) History of open reduction and internal fixation (ORIF) procedure LLE () History of colonoscopy History of esophagogastroduodenoscopy (EGD) H/O cataract extraction R/L History of ankle surgery left ankle, repair left ankle, hardware removed History of coronary artery bypass graft CABG x1 + AVR (2015) 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 Left transmetatarsal amputation (11/23/21): LMA# 5.0 at [facility]. No issues noted per post-op anesthesia progress note. HX 1 SX TO REMOVE ALL TOES LEFT FOOT NOVEMBER 2021 Family History Brother Family history of diabetes mellitus Sister Family history of diabetes mellitus Mother Family history of diabetes mellitus Grandmother (Maternal) Family history of diabetes mellitus Uncle Family hx of colon cancer Colorectal cancer Father Family history of esophageal cancer Sister Family history of diabetes mellitus Other No family history of adverse response to anesthesia Denies family history of Ovarian cancer Prostate cancer Myocardial infarction Breast cancer Social History Smoking Status: Never smoker Tobacco Type: Cigarettes and Smokeless Tobacco (Dip or Chew) Age Started Using Tobacco: 15; Age Quit Using Tobacco: 53; packs per day: 1; Cigarettes Per Day: 20; Second Hand Exposure: No; Do You Dip or Chew Tobacco: No; Hx Alcohol Use: Yes Alcohol type: beer Alcohol Intake Frequency: Monthly or Less Hx Substance Use: No Preferred Language: Chinese Communication Ability: Effective Visual Impairment: No Limitations Hearing Ability: Hard of Hearing Operations Scheduler Required: No Beliefs That Will Affect Care: None marital status: Current Living Situation: Family Current Living Situation Comment: Daughter is living with him current occupational status: disabled How many Children do You have: 2 How many Children do You have Comment: family assists with care, also is part of the waiver program so the pt's roommate is able to assist with care through this program Feels Safe at Home: Yes Childhood Exposure to Second-Hand Smoke: Yes Diet: diabetic Diet Comment: Carb Counts. ([id number], roughly), protein drinks caffeine: Yes (coffee, rarely ) during the past year weight has: remained stable Dental Care, Regularly: No Seatbelt Use: always Sunscreen Use: No Gender Identity: Male Assistive Devices: Bedside Commode, Walker and Wheelchair Allergies Allergies Allergy/AdvReac Type Severity Reaction Status Date / Time No Known Allergies Allergy Unknown Verified 04/15/25 14:10 Home Meds Home Medications Medication Instructions Recorded Confirmed aspirin 81 mg tablet,delayed 81 mg PO QAM 05/04/21 05/18/25 release (Mohit Low Dose Aspirin) acetaminophen 500 mg tablet 500 mg PO Q8 PRN Pain 02/22/24 05/18/25 (Tylenol Extra Strength) pantoprazole 40 mg tablet,delayed 40 mg PO QAM 01/26/25 05/18/25 release (Protonix) tamsulosin 0.4 mg capsule 0.4 mg PO QAM 01/26/25 05/18/25 trazodone 100 mg tablet 100 mg PO HS PRN Sleep 01/26/25 05/18/25 ibuprofen 200 mg tablet 400 mg PO Q6H PRN Pain 02/06/25 05/18/25 levothyroxine 200 mcg tablet 200 mcg PO QAM 02/06/25 05/18/25 oxycodone 5 mg tablet 5 - 10 mg PO Q6H PRN pain 02/06/25 05/18/25 magic mix 1 applic topical BID 03/31/25 05/18/25 Previous Rx's Medication Instructions Recorded Replacement Brakes for Manual #1 ea 05/12/23 Wheelchair Mattress (Air or other) #1 ea 06/19/23 Wheelchair (Manual) (Manual #1 ea 06/19/23 Wheelchair) simethicone 125 mg capsule (Gas-X 125 mg PO DAILY PRN abdominal 07/24/23 Extra Strength) distention #14 caps ondansetron 4 mg disintegrating 4 mg PO Q6H PRN nausea and 11/14/23 tablet vomiting #30 tabs 10 incches wedge pillow #1 ea 11/01/23 AQUACEL AG #30 ea 03/12/24 Optifoam #30 ea 03/12/24 levocetirizine 5 mg tablet 5 mg PO QPM #90 tabs 05/09/24 ferrous sulfate 325 mg (65 mg 325 mg PO BID #60 tabs 06/24/24 iron) tablet,delayed release chlorthalidone 25 mg tablet 25 mg PO QAM #90 tabs 07/24/24 ABBEY Cushion #1 ea 08/23/24 insulin aspart U-100 100 unit/mL See Rx Instructions continuous 09/10/24 subcutaneous solution (Novolog subcutaneous infusion CONTINOUS U-100 Insulin aspart) #60 mL clopidogrel 75 mg tablet (Plavix) 75 mg PO QAM #90 tabs 10/22/24 folic acid 1 mg tablet 1 mg PO QAM #90 tabs 10/22/24 metoprolol tartrate 25 mg tablet 12.5 mg (1/2 x 25 mg) PO BID #90 11/15/24 tabs atorvastatin 80 mg tablet (Lipitor) 80 mg PO HS #90 tabs 11/29/24 calcitriol 0.25 mcg capsule 0.25 mcg PO QAM #30 caps 01/22/25 potassium chloride 20 mEq 20 meq PO BID #180 tabs 03/25/25 tablet,extended release Results & Data (ED) Vital Signs Vital Signs - 24 hr 05/18/25 02:18 05/18/25 02:20 05/18/25 02:36 Temperature 36.6 C Temperature Source Oral Pulse Rate 96 H 99 H Respiratory Rate 14 Blood Pressure 52/27 L Blood Pressure Mean 31 Pulse Oximetry Oxygen Delivery Method Sepsis Recent Fever Within 48 Hours No Sepsis New/Unexplained Change in Mental Status N/A Sepsis Action Taken by Nursing No Action Required 05/18/25 02:42 05/18/25 02:42 05/18/25 02:45 Temperature Temperature Source Pulse Rate 103 H Respiratory Rate 24 Blood Pressure 73/51 L 73/51 L Blood Pressure Mean 53 53 Pulse Oximetry 93 96 Oxygen Delivery Method Room Air Sepsis Recent Fever Within 48 Hours Sepsis New/Unexplained Change in Mental Status Sepsis Action Taken by Nursing 05/18/25 02:51 05/18/25 02:57 05/18/25 03:02 Temperature Temperature Source Pulse Rate 103 H 102 H 100 H Respiratory Rate 24 22 20 Blood Pressure 90/62 L 78/29 L 81/40 L Blood Pressure Mean 81 43 56 Pulse Oximetry 99 98 100 Oxygen Delivery Method Sepsis Recent Fever Within 48 Hours Sepsis New/Unexplained Change in Mental Status Sepsis Action Taken by Nursing 05/18/25 03:27 05/18/25 03:27 05/18/25 03:35 Temperature Temperature Source Pulse Rate 125 H 100 H 133 H Respiratory Rate 20 24 Blood Pressure 69/44 L 121/97 Blood Pressure Mean 55 107 Pulse Oximetry 100 99 Oxygen Delivery Method Sepsis Recent Fever Within 48 Hours Sepsis New/Unexplained Change in Mental Status Sepsis Action Taken by Nursing 05/18/25 03:36 05/18/25 03:41 05/18/25 03:45 Temperature Temperature Source Pulse Rate 149 H 124 H 128 H Respiratory Rate 22 24 20 Blood Pressure 121/97 99/62 L 122/63 Blood Pressure Mean 105 70 82 Pulse Oximetry 100 100 100 Oxygen Delivery Method Sepsis Recent Fever Within 48 Hours Sepsis New/Unexplained Change in Mental Status Sepsis Action Taken by Nursing 05/18/25 03:50 05/18/25 03:52 05/18/25 03:55 Temperature 35.6 C L Temperature Source Rodgers Cath ( Temp Sensing) Pulse Rate 123 H 127 H 124 H Respiratory Rate 22 20 22 Blood Pressure 117/74 97/80 L 97/80 L Blood Pressure Mean 99 85 88 Pulse Oximetry 100 100 100 Oxygen Delivery Method Sepsis Recent Fever Within 48 Hours Sepsis New/Unexplained Change in Mental Status Sepsis Action Taken by Nursing 05/18/25 04:00 05/18/25 04:05 05/18/25 04:07 Temperature 36.0 C L Temperature Source Rodgers Cath ( Temp Sensing) Pulse Rate 124 H 128 H 124 H Respiratory Rate 20 20 20 Blood Pressure 109/52 L 107/71 87/56 L Blood Pressure Mean 56 85 66 Pulse Oximetry 100 100 100 Oxygen Delivery Method Sepsis Recent Fever Within 48 Hours Sepsis New/Unexplained Change in Mental Status Sepsis Action Taken by Nursing 05/18/25 04:15 05/18/25 04:20 05/18/25 04:30 Temperature Temperature Source Pulse Rate 123 H 127 H 124 H Respiratory Rate 21 20 20 Blood Pressure 88/60 L 113/63 107/60 Blood Pressure Mean 69 79 85 Pulse Oximetry 100 100 100 Oxygen Delivery Method Sepsis Recent Fever Within 48 Hours Sepsis New/Unexplained Change in Mental Status Sepsis Action Taken by Nursing 05/18/25 04:37 Temperature 36.3 C L Temperature Source Rodgers Cath ( Temp Sensing) Pulse Rate 124 H Respiratory Rate 20 Blood Pressure 92/44 L Blood Pressure Mean 60 Pulse Oximetry 100 Oxygen Delivery Method Sepsis Recent Fever Within 48 Hours Sepsis New/Unexplained Change in Mental Status Sepsis Action Taken by Nursing Laboratory Data 05/18/25 02:24 05/18/25 02:24 Lab Results 05/18/25 05/18/25 05/18/25 Range/Units 02:24 02:26 02:30 WBC 19.05 H (4.8-10.8) K/ul RBC 3.22 L (4.70-6.10) M/uL Hgb 7.4 L (14.0-18.0) g/dl POC Hgb 7.8 L (14.0-18.0) g/dl Hct 25.6 L (42.0-52.0) % POC Hct 23 L (42-52) % MCV 79.5 L (80.0-100.0) fL MCH 23.0 L (25.0-34.0) pg MCHC 28.9 L (32.0-36.0) g/dL RDW Std Deviation 45.6 (36.4-46.3) fL RDW Coeff of Chan 15.8 H (11.5-14.5) % Plt Count 421 H (130-400) K/uL MPV 9.9 (9.4-12.4) fL Immature Gran % (Auto) 0.7 % Neut % (Auto) 79.3 % Lymph % (Auto) 12.2 % Ashe % (Auto) 7.0 % Eos % (Auto) 0.4 % Baso % (Auto) 0.4 % Neut # (Auto) 15.10 H (1.40-6.50) K/uL Lymph # (Auto) 2.33 (1.20-3.40) K/uL Ashe # (Auto) 1.34 H (0.11-0.59) K/uL Eos # (Auto) 0.07 (0.00-0.50) K/uL Baso # (Auto) 0.07 (0.00-0.20) K/uL Immature Gran # (Auto) 0.14 (0.01-0.20) K/uL Ovalocytes 1+ Echinocytes 1+ PT (9.0-12.0) Seconds INR (0.9-1.1) APTT (21-31) Seconds PTT Ratio Fibrinogen (184-400) mg/dl VBG pH (7.36-7.41) VBG pCO2 (38-50) mmHg VBG pO2 mmHg VBG HCO3 mmol/L VBG O2 Saturation % VBG Base Excess mEq/L POC Sodium 141 (135-144) mmol/L Sodium 141 (136-145) mmol/L POC Potassium 4.7 (3.3-5.0) mmol/L Potassium 4.7 (3.5-5.1) mmol/L POC Chloride 110 (101-112) mmol/L Chloride 109 H (98-107) mmol/L Carbon Dioxide 17 L (21-32) mmol/L POC Total CO2 16 L (24-31) mmol/L Anion Gap 15 H (3-11) POC Anion Gap 21.0 (16-25) mmol/L POC BUN 19 H (7-18) mg/dl BUN 21 (6-23) mg/dl Creatinine 1.30 (0.6-1.4) mg/dl POC Creatinine 1.4 H (0.6-1.3) mg/dl Est Cr Clr Drug Dosing Not Reportable eGFR 59.84 BUN/Creatinine Ratio 16.2 (10-20) Glucose 159 H (70-99(Fasting)) mg/dl POC Glucose (70-99) mg/dl POC Glucose (other) 148 H (70-99) mg/dl Lactate 10.6 H* (0.4-2.0) mmol/L Calcium 8.6 (8.6-10.3) mg/dl POC Ioniz Calcium Ketty 1.11 L (1.12-1.32) mmol/l Magnesium 1.8 (1.7-2.4) mg/dl Total Bilirubin 0.5 (0.2-1.0) mg/dl Direct Bilirubin 0.2 (0-0.2) mg/dl AST 12 L (13-39) U/L ALT 11 (7-52) U/L Alkaline Phosphatase 116 H (34-104) U/L Troponin I High Sens 12.8 (0-20) pg/ml Total Protein 6.0 (6.0-8.3) gm/dl Albumin 2.7 L (3.4-5.0) gm/dl Lipase 9 L (11-82) U/L Procalcitonin 0.15 (0-0.5) ng/ml Random Cortisol mcg/dl Urine Color Urine Appearance (Clear) Urine pH (4.5-7.5) Ur Specific Tillman (1.000-1.030) Urine Protein (Negative) Urine Glucose (UA) (Negative) Urine Ketones (Negative) Urine Blood (Negative) Urine Nitrite (Negative) Urine Bilirubin (Negative) Urine Urobilinogen (Negative) Ur Leukocyte Esterase (Negative) Urine WBC (Auto) (0-5) /hpf Urine RBC (Auto) (0-2) /hpf U Hyaline Cast (Auto) (0-2) /lpf U Epithel Cells (Auto) (0-2) /hpf Urine Bacteria (Auto) (None Seen) Hyaline Casts (None Presnt) /lpf Granular Casts (None Prsent) /lpf Urine Comment Urine Opiates Screen (Neg) Ur Methadone, Qual (Neg) Urine Fentanyl Screen (Neg) Urine Barbiturates (Neg) Ur Phencyclidine (PCP) (Neg) U Amphetamin/Meth Scrn (Neg) MDMA (Ecstasy) Screen (Neg) U Benzodiazepines Scrn (Neg) Ur Cocaine Metabolite (Neg) U Marijuana (THC) Screen (Neg) Blood Type A Positive Antibody Screen NEGATIVE Crossmatch See Detail 05/18/25 05/18/25 05/18/25 Range/Units 02:34 02:36 02:37 WBC (4.8-10.8) K/ul RBC (4.70-6.10) M/uL Hgb (14.0-18.0) g/dl POC Hgb (14.0-18.0) g/dl Hct (42.0-52.0) % POC Hct (42-52) % MCV (80.0-100.0) fL MCH (25.0-34.0) pg MCHC (32.0-36.0) g/dL RDW Std Deviation (36.4-46.3) fL RDW Coeff of Chan (11.5-14.5) % Plt Count (130-400) K/uL MPV (9.4-12.4) fL Immature Gran % (Auto) % Neut % (Auto) % Lymph % (Auto) % Ashe % (Auto) % Eos % (Auto) % Baso % (Auto) % Neut # (Auto) (1.40-6.50) K/uL Lymph # (Auto) (1.20-3.40) K/uL Ashe # (Auto) (0.11-0.59) K/uL Eos # (Auto) (0.00-0.50) K/uL Baso # (Auto) (0.00-0.20) K/uL Immature Gran # (Auto) (0.01-0.20) K/uL Ovalocytes Echinocytes PT 13.1 H (9.0-12.0) Seconds INR 1.2 H (0.9-1.1) APTT 27 (21-31) Seconds PTT Ratio 1.0 Fibrinogen 409 H (184-400) mg/dl VBG pH (7.36-7.41) VBG pCO2 (38-50) mmHg VBG pO2 mmHg VBG HCO3 mmol/L VBG O2 Saturation % VBG Base Excess mEq/L POC Sodium (135-144) mmol/L Sodium (136-145) mmol/L POC Potassium (3.3-5.0) mmol/L Potassium (3.5-5.1) mmol/L POC Chloride (101-112) mmol/L Chloride (98-107) mmol/L Carbon Dioxide (21-32) mmol/L POC Total CO2 (24-31) mmol/L Anion Gap (3-11) POC Anion Gap (16-25) mmol/L POC BUN (7-18) mg/dl BUN (6-23) mg/dl Creatinine (0.6-1.4) mg/dl POC Creatinine (0.6-1.3) mg/dl Est Cr Clr Drug Dosing eGFR BUN/Creatinine Ratio (10-20) Glucose (70-99(Fasting)) mg/dl POC Glucose 126 H (70-99) mg/dl POC Glucose (other) (70-99) mg/dl Lactate (0.4-2.0) mmol/L Calcium (8.6-10.3) mg/dl POC Ioniz Calcium Ketty (1.12-1.32) mmol/l Magnesium (1.7-2.4) mg/dl Total Bilirubin (0.2-1.0) mg/dl Direct Bilirubin (0-0.2) mg/dl AST (13-39) U/L ALT (7-52) U/L Alkaline Phosphatase (34-104) U/L Troponin I High Sens (0-20) pg/ml Total Protein (6.0-8.3) gm/dl Albumin (3.4-5.0) gm/dl Lipase (11-82) U/L Procalcitonin (0-0.5) ng/ml Random Cortisol 28.30 mcg/dl Urine Color Urine Appearance (Clear) Urine pH (4.5-7.5) Ur Specific Tillman (1.000-1.030) Urine Protein (Negative) Urine Glucose (UA) (Negative) Urine Ketones (Negative) Urine Blood (Negative) Urine Nitrite (Negative) Urine Bilirubin (Negative) Urine Urobilinogen (Negative) Ur Leukocyte Esterase (Negative) Urine WBC (Auto) (0-5) /hpf Urine RBC (Auto) (0-2) /hpf U Hyaline Cast (Auto) (0-2) /lpf U Epithel Cells (Auto) (0-2) /hpf Urine Bacteria (Auto) (None Seen) Hyaline Casts (None Presnt) /lpf Granular Casts (None Prsent) /lpf Urine Comment Urine Opiates Screen (Neg) Ur Methadone, Qual (Neg) Urine Fentanyl Screen (Neg) Urine Barbiturates (Neg) Ur Phencyclidine (PCP) (Neg) U Amphetamin/Meth Scrn (Neg) MDMA (Ecstasy) Screen (Neg) U Benzodiazepines Scrn (Neg) Ur Cocaine Metabolite (Neg) U Marijuana (THC) Screen (Neg) Blood Type Antibody Screen Crossmatch 05/18/25 05/18/25 Range/Units 02:41 03:43 WBC (4.8-10.8) K/ul RBC (4.70-6.10) M/uL Hgb (14.0-18.0) g/dl POC Hgb (14.0-18.0) g/dl Hct (42.0-52.0) % POC Hct (42-52) % MCV (80.0-100.0) fL MCH (25.0-34.0) pg MCHC (32.0-36.0) g/dL RDW Std Deviation (36.4-46.3) fL RDW Coeff of Chan (11.5-14.5) % Plt Count (130-400) K/uL MPV (9.4-12.4) fL Immature Gran % (Auto) % Neut % (Auto) % Lymph % (Auto) % Ashe % (Auto) % Eos % (Auto) % Baso % (Auto) % Neut # (Auto) (1.40-6.50) K/uL Lymph # (Auto) (1.20-3.40) K/uL Ashe # (Auto) (0.11-0.59) K/uL Eos # (Auto) (0.00-0.50) K/uL Baso # (Auto) (0.00-0.20) K/uL Immature Gran # (Auto) (0.01-0.20) K/uL Ovalocytes Echinocytes PT (9.0-12.0) Seconds INR (0.9-1.1) APTT (21-31) Seconds PTT Ratio Fibrinogen (184-400) mg/dl VBG pH 7.14 L (7.36-7.41) VBG pCO2 49 (38-50) mmHg VBG pO2 24 mmHg VBG HCO3 17 mmol/L VBG O2 Saturation < 60.0 % VBG Base Excess -12.3 mEq/L POC Sodium (135-144) mmol/L Sodium (136-145) mmol/L POC Potassium (3.3-5.0) mmol/L Potassium (3.5-5.1) mmol/L POC Chloride (101-112) mmol/L Chloride (98-107) mmol/L Carbon Dioxide (21-32) mmol/L POC Total CO2 (24-31) mmol/L Anion Gap (3-11) POC Anion Gap (16-25) mmol/L POC BUN (7-18) mg/dl BUN (6-23) mg/dl Creatinine (0.6-1.4) mg/dl POC Creatinine (0.6-1.3) mg/dl Est Cr Clr Drug Dosing eGFR BUN/Creatinine Ratio (10-20) Glucose (70-99(Fasting)) mg/dl POC Glucose (70-99) mg/dl POC Glucose (other) (70-99) mg/dl Lactate Cancelled (0.4-2.0) mmol/L Calcium (8.6-10.3) mg/dl POC Ioniz Calcium Ketty (1.12-1.32) mmol/l Magnesium (1.7-2.4) mg/dl Total Bilirubin (0.2-1.0) mg/dl Direct Bilirubin (0-0.2) mg/dl AST (13-39) U/L ALT (7-52) U/L Alkaline Phosphatase (34-104) U/L Troponin I High Sens (0-20) pg/ml Total Protein (6.0-8.3) gm/dl Albumin (3.4-5.0) gm/dl Lipase (11-82) U/L Procalcitonin (0-0.5) ng/ml Random Cortisol mcg/dl Urine Color Yellow Urine Appearance Clear (Clear) Urine pH 6.0 (4.5-7.5) Ur Specific Tillman 1.033 H (1.000-1.030) Urine Protein Trace H (Negative) Urine Glucose (UA) Negative (Negative) Urine Ketones Negative (Negative) Urine Blood Negative (Negative) Urine Nitrite Negative (Negative) Urine Bilirubin Negative (Negative) Urine Urobilinogen Negative (Negative) Ur Leukocyte Esterase Negative (Negative) Urine WBC (Auto) 0-5 (0-5) /hpf Urine RBC (Auto) 0-2 (0-2) /hpf U Hyaline Cast (Auto) 6-10 H (0-2) /lpf U Epithel Cells (Auto) 0-2 (0-2) /hpf Urine Bacteria (Auto) None Seen (None Seen) Hyaline Casts Present A (None Presnt) /lpf Granular Casts Present A (None Prsent) /lpf Urine Comment Urine Opiates Screen Neg (Neg) Ur Methadone, Qual Neg (Neg) Urine Fentanyl Screen Neg (Neg) Urine Barbiturates Neg (Neg) Ur Phencyclidine (PCP) Neg (Neg) U Amphetamin/Meth Scrn Neg (Neg) MDMA (Ecstasy) Screen Neg (Neg) U Benzodiazepines Scrn Neg (Neg) Ur Cocaine Metabolite Neg (Neg) U Marijuana (THC) Screen Neg (Neg) Blood Type Antibody Screen Crossmatch Administered Medications Vancomycin HCl 1,750 mg/ (Sodium Chloride) 535 mls @ 200 mls/hr IV NOW ONE Stop: 05/18/25 05:44 Last Admin: 05/18/25 03:33 Dose: 200 mls/hr Documented By: WANDA Norepinephrine Bitartrate (Levophed/D5w) 4 mg in 250 mls @ 31.875 mls/hr IV .Q7H51M LIZZY; Protocol Stop: 06/17/25 03:14 Last Titration: 05/18/25 04:09 Dose: 0.1 mcg/kg/min, 31.9 mls/hr Documented By: WANDA Co-signed By: RAUL Titration: 05/18/25 03:54 Dose: 0.08 mcg/kg/min, 25.5 mls/hr Documented By: WANDA Co-signed By: SKTaiwo Titration: 05/18/25 03:31 Dose: 0.12 mcg/kg/min, 38.3 mls/hr Documented By: WANDA Co-signed By: MICHELLE Titration: 05/18/25 03:30 Dose: 0.15 mcg/kg/min, 47.8 mls/hr Documented By: WANDA Co-signed By: MICHELLE Titration: 05/18/25 03:00 Dose: 0.1 mcg/kg/min, 31.9 mls/hr Documented By: WANDA Co-signed By: MICHELLE Admin: 05/18/25 02:45 Dose: 0.05 mcg/kg/min, 15.9 mls/hr Documented By: WANDA Co-signed By: MICHELLE Ondansetron HCl (Ondansetron Inj 2 Mg/Ml 2 Ml Vial) 4 mg IV Q6H LIZZY Stop: 06/17/25 03:44 Last Admin: 05/18/25 03:53 Dose: 4 mg Documented By: WANDA Discontinued Medications Sodium Chloride (Nss) 1,000 mls @ 999 mls/hr IV .Q1H1M LIZZY Stop: 05/18/25 04:45 Last Infusion: 05/18/25 03:32 Dose: Infused Documented By: Admin: 05/18/25 03:00 Dose: 999 mls/hr Documented By: Infusion: 05/18/25 03:00 Dose: Infused Documented By: Admin: 05/18/25 02:38 Dose: 999 mls/hr Documented By: CAMI Cefepime HCl (Maxipime 2000mg) 2,000 mg in 20 mls @ 5 mls/min IV NOW ; Protocol Stop: 05/18/25 02:36 Last Admin: 05/18/25 02:37 Dose: 5 mls/min Documented By: CAMI Sodium Chloride (Nss) 1,000 mls @ 999 mls/hr IV .Q1H1M ONE Stop: 05/18/25 04:04 Last Infusion: 05/18/25 04:11 Dose: Infused Documented By: Admin: 05/18/25 03:33 Dose: 999 mls/hr Documented By: WANDA Pantoprazole Sodium 80 mg/ (Dextrose) 120 mls @ 480 mls/hr IV NOW ONE Stop: 05/18/25 03:40 Last Infusion: 05/18/25 04:11 Dose: Infused Documented By: Admin: 05/18/25 03:49 Dose: 480 mls/hr Documented By: WANDA Pantoprazole Sodium 80 mg/ (Dextrose) 120 mls @ 480 mls/hr IV NOW ONE Stop: 05/18/25 03:49 Last Admin: 05/18/25 03:51 Dose: Not Given Documented By: WANDA Ioversol (Optiray 320 100ml) 94 ml IV ONCE ONE Stop: 05/18/25 03:20 Last Admin: 05/18/25 03:19 Dose: 94 ml Documented By: BARBARA Miscellaneous (Stat Iv Infusion Titration Per Protocol) 1 each N/A NOW Stop: 05/18/25 02:37 Last Admin: 05/18/25 03:50 Dose: Not Given Documented By: WANDA Naloxone HCl (Naloxone Hcl 0.4 Mg/1 Ml Vial/Carp) 0.4 mg IV NOW STA Stop: 05/18/25 03:00 Last Admin: 05/18/25 03:03 Dose: 0.4 mg Documented By: WANDA Norepinephrine Bitartrate (Norepinephrine/D5w 4 Mg/250 Ml) Confirm Administered Dose 4 mg IV .STK-MED ONE Stop: 05/18/25 02:40 Last Admin: 05/18/25 03:31 Dose: Not Given Documented By: WANDA Pantoprazole Sodium (Pantoprazole Bolus/Drip) 1 each IV NOW Stop: 05/18/25 03:36 Last Admin: 05/18/25 03:51 Dose: Not Given Documented By: KML Imaging Data Radiologist's Impression: Chest X-Ray 05/18/25 02:31 EXAM: XR chest 1V portable CLINICAL HISTORY: Sepsis. TECHNIQUE: An X-ray image of the chest is obtained in AP projection. COMPARISON: 05/22/2023. FINDINGS: Suboptimal inspiratory effort. Pulmonary Parenchyma: Lungs are clear bilaterally. No evidence of consolidation, collapse, or focal opacities. No pulmonary nodules are identified. The right hemidiaphragm is significantly higher up, up to 6.5 cm, as compared to the left hemidiaphragm. No evidence of pleural effusion or pleural thickening. Heart and Mediastinum: Heart size and shape are normal. No mediastinal widening or masses. No hilar or mediastinal lymphadenopathy. Bony Thorax: Age-appropriate degenerative joint changes are identified in the visualized joints, more clearly visualized in the right shoulder joint. Bony thorax appears intact without acute fractures or deformities. Soft Tissues: Midline sternotomy wired sutures are identified. Soft tissues overlying the chest wall are unremarkable. IMPRESSION: 1. Elevated right diaphragm. 2. No acute cardiopulmonary abnormalities are identified. 3. There is no evidence of lobar consolidation, collapse, pleural effusion, or pneumothorax on either side. 4. No significant interval changes. Electronically signed by Tima Morton 05-18-2025 03:55 AM Abdomen/Pelvis CT 05/18/25 02:32 EXAM: CT abd pelvis IV con only CLINICAL HISTORY: Pelvic wounds, eval for infection TECHNIQUE: Multiple contiguous axial images were obtained from the level of diaphragm to the pubis symphysis. This study was acquired after the IV administration of iodinated contrast material, given the patient's indications for the examination. If IV contrast material had not been administered, the likelihood of detecting abnormalities relevant to the patient's condition would have been substantially decreased. Coronal and sagittal reformatted images were generated and reviewed to improve anatomic localization and optimize lesion detection. CT scan was performed according to ALARA (as low as reasonable achievable). 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 The visualized lung bases are clear. Aortic and coronary artery calcification is seen. The liver is normal in size and attenuation. No focal liver lesions are seen. There is no intra or extrahepatic biliary ductal dilatation. Hepatic vasculature is patent. The gallbladder is not seen. The spleen shows non enhancement in the medial part-possible infarct. The right adrenal gland shows a hypoattenuating nodule measuring 20mm with average attenuation of 20HU. The left adrenal gland is unremarkable. Pancreas is atrophic. The kidneys are normal in size and attenuation. There is no hydronephrosis or perinephric fat stranding. No renal masses are identified. A calculus measuring 10x4mm is seen in the lower polar calyx of left kidney. The ureters are normal in caliber and no ureteral calculi are seen. The bladder is mildly distended. The stomach is distended and is filled with contents. No evidence of focal or diffuse bowel wall thickening or evidence of bowel obstruction is seen. Diffuse wall thickening seen in distal ascending colon and hepatic flexure. Rest of the large bowel is collapsed. Stoma seen in left lower abdomen. A linear tract is seen in the pelvis on left side of midline with air within communicating with the anorectal region. It is seen to be involving the left external sphincter as well. No adenopathy or fluid collections are seen. The aorta and its branches show atherosclerotic wall calcification. No aggressive appearing osseous lesions are identified. IMPRESSION: 1. 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 Advise MR fistulogram for further delineation. 2. Non obstructive left renal calculus - stable. 3. Hypoattenuating right adrenal nodule - stable. Advise CT with adrenal protocol for further characterization. 4. The spleen shows non enhancement in the medial part-possible infarct. New finding. Advised further evaluation. 4. Diffuse wall thickening seen in distal ascending colon and hepatic flexure-possible colitis. New finding. 5. Rest of the large bowel is collapsed. Stoma seen in left lower abdomen. Electronically signed by Arnol Espino 05-18-2025 04:47 AM Discharge Plan Visit Data Chief Complaint: Hypotension Stated Complaint: Hypotension, Near Syncope ED Provider: Tyree Perry Discharge Problem: Acute hypotension Patient Disposition: Admitted As Inpatient Condition: Critical Forms Stand Alone Forms: Likva Prescriptions Prescriptions: No Action (DME) Replacement Brakes for Manual Wheelchair See Rx Instructions .Route .MEDSUPPLY Qty: 1 0RF Rx Instructions: As directed (DME) Manual Wheelchair Device See Rx Instructions .Route Qty: 1 0RF Rx Instructions: wheel chair repair (DME) Mattress (Air or other) Misc See Rx Instructions .Route Qty: 1 0RF Rx Instructions: Alternating pressure mattress, use daily ondansetron 4 mg tablet,disintegrating 4 mg PO Q6H PRN (Reason: nausea and vomiting) Qty: 30 3RF (DME) 10 incches wedge pillow See Rx Instructions .Route .MEDSUPPLY Qty: 1 0RF Rx Instructions: As directed (DME) AQUACEL AG See Rx Instructions .Route .MEDSUPPLY Qty: 30 0RF Rx Instructions: Cleanse site of Left AKA with saline, pat dry, apply AQUACEL AG, then cover with optifoam. Change every other day. (DME) Optifoam See Rx Instructions .Route .MEDSUPPLY Qty: 30 0RF Rx Instructions: Cleanse site of Left AKA with saline, pat dry, apply AQUACEL AG, then cover with optifoam. Change every other day. levocetirizine 5 mg tablet 5 mg PO QPM Qty: 90 3RF ferrous sulfate 325 mg (65 mg iron) tablet,delayed release (DR/EC) 325 mg PO BID Qty: 60 5RF chlorthalidone 25 mg tablet 25 mg PO QAM Qty: 90 3RF insulin aspart U-100 [Novolog U-100 Insulin aspart] 100 unit/mL solution See Rx Instructions continuous subcutaneous infusion CONTINOUS Qty: 60 1RF Rx Instructions: insulin pump TDD 60 units via continuous subcutaneous infusion continuous; PT UNSURE OF BASAL RATE/DOSE VARIES DEPENDING ON CARB INTAKE. , insulin pump TDD 60 units clopidogrel [Plavix] 75 mg tablet 75 mg PO QAM Qty: 90 3RF folic acid 1 mg tablet 1 mg PO QAM Qty: 90 3RF metoprolol tartrate 25 mg tablet 12.5 mg PO BID Qty: 90 3RF atorvastatin [Lipitor] 80 mg tablet 80 mg PO HS Qty: 90 3RF calcitriol 0.25 mcg capsule 0.25 mcg PO QAM Qty: 30 5RF potassium chloride 20 mEq tablet extended release 20 meq PO BID Qty: 180 3RF simethicone [Gas-X Extra Strength] 125 mg capsule 125 mg PO DAILY PRN (Reason: abdominal distention) Qty: 14 0RF (DME) ROHO Cushion See Rx Instructions .Route .MEDSUPPLY Qty: 1 0RF Rx Instructions: As directed with wheelchair for treatment/prevention of pressure sores acetaminophen [Tylenol Extra Strength] 500 mg tablet 500 mg PO Q8 PRN (Reason: Pain) aspirin [Mohit Low Dose Aspirin] 81 mg tablet,delayed release (DR/EC) 81 mg PO QAM tamsulosin 0.4 mg capsule 0.4 mg PO QAM trazodone 100 mg tablet 100 mg PO HS PRN (Reason: Sleep) Patient Comments: rare use pantoprazole [Protonix] 40 mg tablet,delayed release (DR/EC) 40 mg PO QAM ibuprofen 200 mg Tablet 400 mg PO Q6H PRN (Reason: Pain) levothyroxine 200 mcg tablet 200 mcg PO QAM oxycodone 5 mg tablet 5 - 10 mg PO Q6H PRN (Reason: pain) Rx Instructions: 1-2 orally every 6 hours PRN; magic mix 1 applic topical BID Rx Instructions: 1:1; silvadene,HCT, Nystatin,and zinc cream to groin, buttocks wound areas bid Referrals Referrals: Jeremias Morton DO [Primary Care Provider] -
[2025-05-18] MEDS: CEFEPIME 2000MG 2,000 MG/20 ML SYR IV STA (02:37)
[2025-05-18] MEDS: SODIUM CHLORIDE 0.9% 1,000 ML IV SCH (02:38)
[2025-05-18 02:44] LABS: Hematocrit (blood only) 25.6 % (42.0-52.0); Hemoglobin 7.4 g/dl (14.0-18.0); Immature Granulocytes # (auto) 0.14 K/uL (0.01-0.20); Immature Granulocytes % (auto) 0.7 %; Mean Corpuscular Hemoglobin 23.0 pg (25.0-34.0); Mean Corpuscular Volume 79.5 fL (80.0-100.0); Platelet Count 421 K/uL (130-400); RDW Standard Deviation 45.6 fL (36.4-46.3); Red Blood Count 3.22 M/uL (4.70-6.10); White Blood Count 19.05 K/ul (4.8-10.8)
[2025-05-18] MEDS: Standard Conc; 4mg in 250mL IV SCH (02:45)
[2025-05-18] MEDS ORDERED: NOREPINEPHRINE/D5W 4 MG/250 ML PLCT IV SCH (02:45)
[2025-05-18 02:52] LABS: Base Excess VBG -12.3 mEq/L; HCO3 VBG 17 mmol/L; Oxygen Saturation VBG < 60.0 %; PCO2 VBG 49 mmHg (38-50); PO2 VBG 24 mmHg; pH VBG 7.14 (7.36-7.41)
[2025-05-18 02:53] LABS: Alanine Aminotransferase 11 U/L (7-52); Alkaline Phosphatase 116 U/L (34-104); Anion Gap 15 (3-11); Bilirubin,Total 0.5 mg/dl (0.2-1.0); Blood Urea Nitrogen 21 mg/dl (6-23); Calcium 8.6 mg/dl (8.6-10.3); Carbon Dioxide 17 mmol/L (21-32); Chloride 109 mmol/L (98-107); Glucose 159 mg/dl (70-99(Fasting)); Magnesium 1.8 mg/dl (1.7-2.4); Potassium 4.7 mmol/L (3.5-5.1); Sodium 141 mmol/L (136-145); Total Protein 6.0 gm/dl (6.0-8.3)
[2025-05-18 03:01] LABS: Ovalocytes 1+
[2025-05-18] MEDS: NALOXONE HCL 0.4 MG/1 ML VIAL/CARP IV STA (03:03)
[2025-05-18] MEDS ORDERED: VANCOMYCIN CONSULT ACTIVE PRN ×2 (03:04→04:57)
[2025-05-18] MEDS: OPTIRAY 320 100ml IV ONE (03:19)
[2025-05-18] MEDS ORDERED: SODIUM CHLORIDE 0.9% 100 ML IV PRN ×3 (03:19→08:15)
[2025-05-18] MEDS ORDERED: PANTOPRAZOLE BOLUS/DRIP IV STA (03:26)
[2025-05-18] MEDS: NOREPINEPHRINE/D5W 4 MG/250 ML IV ONE (03:31)
[2025-05-18] MEDS: SODIUM CHLORIDE 0.9% 1,000 ML IV ONE (03:33)
[2025-05-18] MEDS: VANCOMYCIN HCL 1,750 MG in SODIUM CHLORIDE 0.9% 500 ML IV ONE (03:33)
[2025-05-18] MEDS ORDERED: ACETAMINOPHEN 1,000 MG/100 ML VIAL IV PRN (03:38)
--- NOTE | 2025-05-18 03:42 | History & Physical Report ---
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 #Neuro - patient awake and alert. On Oxycodone for chronic pain - family reports that he takes this very sparingly -Tylenol PRN pain -Trazodone qHS PRN #Cardiovascular - patient with shock, likely multifactorial - hemorrhagic with low Hgb=7.4 and hematemesis. Also appears dry on exam. Possible septic as well given WBC=19.05, unclear source of infection. Received 3L IV crystalloid as well as receiving 1u PRBCs. On levophed presently for BP support. Patient with severe PAD -Continue Levophed, goal MAP >65 -Hold ASA and Atorvastatin for now -Hold Metoprolol in setting of hypotension, bleed -Hold Chlorthalidone #Respiratory - adequate oxygenation on room air. No cough, SOB or wheeze. CXR with no consolidation, effusion or PTX -Continue to monitor #GI - patient with episode of hematemesis in the ER. Reported vomiting prior to arrival following dinner, spicy pork chop. ?Saranya Nell tear? Patient also on Ibuprofen, ASA and Plavix -Maintain PIV x 2 large bore -Transfusion 1u PRBCs ordered -Repeat CBC post transfusion and trend q 6 hours -Protonix gtt -GI consultation appreciated -Zofran PRN nausea # - CKD. Cr 1.3, elevated from baseline -Rodgers placed, monitor I/Os -Repeat chemistry -Continue Calcitriol #Heme - patient anemic, suspect blood loss -Transfusion 1u PRBCs -Monitor CBC #ID -Follow cultures -Repeat lactate -Continue empiric antibiotics - Vancomycin and Cefepime #Endocrine -Place insulin pump on hold -Hyperglycemia management per MICU protocol History of Present Illness Chief Complaint: hypotension, hematemesis Primary Care Provider: DO Ron Henley is a 70yo male with multiple medical comorbidities presenting from home with hypotension. Patient with episode of hematemesis while in CT scan. Mr. 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 He presents from home this evening by EMS for hypotension. Patient's daughter recently moved back in with him with her boyfriend which has been a very stressful situation for the patient. This evening the daughter made the patient a spicy pork chop around 20:00. After the patient ate he developed some abdominal pain, nausea, and vomiting brown liquid. Later in the evening his daughter found to be minimally responsive. EMS was called - when they arrived to the house they found the patient laying in his hospital bed in the living room, semiconscious, pale, cold, clammy and limp. He had a bucket on his lap with vomit and some on his chest. BSG was 173. Pulse weak - blood pressure on EMS report variable, noted to be 75/52 at one point. In the ER patient found to be hypothermic, tachycardic and hypotensive He had an episode of hematemesis in the ER - vomiting appx 50mL of bright, red blood ER Course: NSS x 3L Levophed 1u PRBCs - Type O negative Cefepime 2gm Vancomycin 1750mg Narcan 0.4mg IV Protonix bolus and drip Zofran 4mg IV Allergies Allergy/AdvReac Type Severity Reaction Status Date / Time No Known Allergies Allergy Unknown Verified 04/15/25 14:10 Home Medications Medication Instructions Recorded Confirmed Type aspirin 81 mg tablet,delayed 81 mg PO QAM 05/04/21 05/18/25 History release (Mohit Low Dose Aspirin) Replacement Brakes for Manual #1 ea 05/12/23 04/15/25 Rx Wheelchair Mattress (Air or other) #1 ea 06/19/23 04/15/25 Rx Wheelchair (Manual) (Manual #1 ea 06/19/23 04/15/25 Rx Wheelchair) simethicone 125 mg capsule (Gas-X 125 mg PO DAILY PRN abdominal 07/24/23 05/18/25 Rx Extra Strength) distention #14 caps ondansetron 4 mg disintegrating 4 mg PO Q6H PRN nausea and 07/25/23 05/18/25 Rx tablet vomiting #30 tabs 10 incches wedge pillow #1 ea 11/01/23 04/15/25 Rx acetaminophen 500 mg tablet 500 mg PO Q8 PRN Pain 02/22/24 05/18/25 History (Tylenol Extra Strength) AQUACEL AG #30 ea 03/12/24 04/15/25 Rx Optifoam #30 ea 03/12/24 04/15/25 Rx levocetirizine 5 mg tablet 5 mg PO QPM #90 tabs 05/09/24 05/18/25 Rx ferrous sulfate 325 mg (65 mg 325 mg PO BID #60 tabs 06/24/24 04/15/25 Rx iron) tablet,delayed release chlorthalidone 25 mg tablet 25 mg PO QAM #90 tabs 07/24/24 05/18/25 Rx ROHO Cushion #1 ea 08/23/24 04/15/25 Rx insulin aspart U-100 100 unit/mL See Rx Instructions continuous 09/10/24 05/18/25 Rx subcutaneous solution (Novolog subcutaneous infusion CONTINOUS U-100 Insulin aspart) #60 mL clopidogrel 75 mg tablet (Plavix) 75 mg PO QAM #90 tabs 10/22/24 05/18/25 Rx folic acid 1 mg tablet 1 mg PO QAM #90 tabs 10/22/24 05/18/25 Rx metoprolol tartrate 25 mg tablet 12.5 mg (1/2 x 25 mg) PO BID #90 11/15/24 05/18/25 Rx tabs atorvastatin 80 mg tablet (Lipitor) 80 mg PO HS #90 tabs 11/29/24 05/18/25 Rx calcitriol 0.25 mcg capsule 0.25 mcg PO QAM #30 caps 01/22/25 05/18/25 Rx pantoprazole 40 mg tablet,delayed 40 mg PO QAM 01/26/25 05/18/25 History release (Protonix) tamsulosin 0.4 mg capsule 0.4 mg PO QAM 01/26/25 05/18/25 History trazodone 100 mg tablet 100 mg PO HS PRN Sleep 01/26/25 05/18/25 History ibuprofen 200 mg tablet 400 mg PO Q6H PRN Pain 02/06/25 05/18/25 History levothyroxine 200 mcg tablet 200 mcg PO QAM 02/06/25 05/18/25 History oxycodone 5 mg tablet 5 - 10 mg PO Q6H PRN pain 02/06/25 05/18/25 History potassium chloride 20 mEq 20 meq PO BID #180 tabs 03/25/25 05/18/25 Rx tablet,extended release magic mix 1 applic topical BID 03/31/25 05/18/25 History Past Med/Surg History Problem List Neutrophilic leukocytosis NSAID long-term use Upper gastrointestinal bleeding Lactic acidosis Acute kidney injury Shock Aortoiliac stenosis Postprocedural wound infection (Acute) Postoperative infection Wound of left lower extremity Adrenal adenoma Environmental allergies Gastroparesis Pressure ulcer of BKA stump, stage 3 Perineal fistula (Acute) following with Dr.Buzas Arshad Colostomy in place Bacteroides infection 08/2023 Escherichia coli (E. coli) infection 2022 MSSA (methicillin susceptible Staphylococcus aureus) infection Intertrigo Cellulitis 08/2023 Fungal dermatitis S/P laparoscopic cholecystectomy Encounter for pre-operative examination Chronic kidney disease, stage III (moderate) Coronary arteriosclerosis Chronic ulcer of sacral region Muscle spasm Problem related to social environment, unspecified Wound of left groin (Acute) following with Dr.Buzas James Ambulatory dysfunction BPH (benign prostatic hyperplasia) Urinary retention Stage III pressure ulcer of left buttock Gastric wall thickening Perirectal abscess (Acute) following with Dr.Buzas James Rectal bleeding (Acute) Marychuy-rectal abscess (Acute) following with Dr.Buzas James Above knee amputation of left lower extremity Surgical wound, non healing (Acute) Stage III pressure ulcer Hypokalemia (Acute) Anemia Tinea cruris Proctitis Iron deficiency COPD (chronic obstructive pulmonary disease) Peripheral arterial disease (Chronic) Elevated parathyroid hormone Nephrolithiasis Osteoporosis Diabetes type 1, controlled Diabetic autonomic neuropathy associated with type 1 diabetes mellitus (Chronic) Proliferative diabetic retinopathy associated with type 1 diabetes mellitus (Chronic) Aortic stenosis s/p porcine valve replacement (2015) + CABG x1 Follows with [facility] History of aortic valve replacement [place] Medical History CKD stage 3 secondary to diabetes PAD (peripheral artery disease) s/p B/L LE stenting and LLE bypass Ambulatory dysfunction WC bound Colostomy in place Insulin pump in place Chronic wound left groin area, recently under anesthesia thru [facility] 01/09/25, for evaluation of his wound, "which surgeon stated no surgical intervention necessary at that time" History of aortic stenosis s/p porcine valve replacement (2015) + CABG x1 Follows with [facility] cardio Diabetic peripheral neuropathy associated with type 1 diabetes mellitus History of COPD History of BPH Hx of chronic kidney disease Above knee amputation of left lower extremity History of nephrolithiasis Gastroparesis Anemia 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) Hx MRSA infection 01/2022 (left heel) History of colon polyps History of Clostridium difficile infection s/p treatment (2020) Below-knee amputation of right lower extremity Clostridium difficile colitis hx, 2020, resolved DVT prophylaxis hx Folate deficiency GERD (gastroesophageal reflux disease) Vitamin D deficiency Surgical History History of surgery EUA, debridement of perineal cyst 01/09/25: under [facility] at [facility]; no issues reported History of below-knee amputation of right lower extremity History of left above knee amputation 07/2022 History of intestinal surgery (2022) w/creation colostomy, [facility] Hx laparoscopic cholecystectomy (07/17/23) Robotic assisted Laparoscopic Cholecystectomy(Not Applicable) - Markus Dawson DO, FACS Hx of cystoscopy w/stent placement; stent then removed History of skin graft Split Thickness Skin Graft of Left Lateral Ankle (11/18/20): LMA#5, atraumatic x1 at [facility] Hx of surgical procedure Left Leg Wound Debridement and Irrigation History of arterial bypass of lower extremity Left femoral to PT composite bypass graft (06/2020), Right femoral to PT bypass graft 01/2021, Removal right fem-pop bypass 03/2021 (graft occluded) History of carpal tunnel release R/L History of tooth extraction History of tonsillectomy History of myringotomy w/tubes bilat. S/P femoropopliteal bypass surgery Right fem-pop bypass graft (01/19/21): Grade 2 view, MAC 3.0, ETT 8.0 at [facility] Left femoral to PT composite bypass graft (06/2020) History of cardiac cath x2, most recent 2016 > no stents (subsequent CABG with AVR in 2016); [facility] History of umbilical hernia repair S/P insertion of iliac artery stent B/L iliac stent placement (2014) H/O endarterectomy R common femoral (11/2018) History of open reduction and internal fixation (ORIF) procedure LLE () History of colonoscopy History of esophagogastroduodenoscopy (EGD) H/O cataract extraction R/L History of ankle surgery left ankle, repair left ankle, hardware removed History of coronary artery bypass graft CABG x1 + AVR (2015) 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 Left transmetatarsal amputation (11/23/21): LMA# 5.0 at [facility]. No issues noted per post-op anesthesia progress note. HX 1 SX TO REMOVE ALL TOES LEFT FOOT NOVEMBER 2021 Family History Brother Family history of diabetes mellitus Sister Family history of diabetes mellitus Mother Family history of diabetes mellitus Grandmother (Maternal) Family history of diabetes mellitus Uncle Family hx of colon cancer Colorectal cancer Father Family history of esophageal cancer Sister Family history of diabetes mellitus Other No family history of adverse response to anesthesia Denies family history of Ovarian cancer Prostate cancer Myocardial infarction Breast cancer Social History Smoking Status: Never smoker Tobacco Type: Cigarettes and Smokeless Tobacco (Dip or Chew) Age Started Using Tobacco: 15; Age Quit Using Tobacco: 53; packs per day: 1; Cigarettes Per Day: 20; Second Hand Exposure: No; Do You Dip or Chew Tobacco: No; Hx Alcohol Use: Yes Alcohol type: beer Alcohol Intake Frequency: Monthly or Less Hx Substance Use: No Preferred Language: Greenlandic Communication Ability: Effective Visual Impairment: No Limitations Hearing Ability: Hard of Hearing Medical Record Coder Required: No Beliefs That Will Affect Care: None marital status: Current Living Situation: Family Current Living Situation Comment: Daughter is living with him current occupational status: disabled How many Children do You have: 2 How many Children do You have Comment: family assists with care, also is part of the waiver program so the pt's roommate is able to assist with care through this program Feels Safe at Home: Yes Childhood Exposure to Second-Hand Smoke: Yes Diet: diabetic Diet Comment: Carb Counts. (8925-7825, roughly), protein drinks caffeine: Yes (coffee, rarely ) during the past year weight has: remained stable Dental Care, Regularly: No Seatbelt Use: always Sunscreen Use: No Gender Identity: Male Assistive Devices: Bedside Commode, Walker and Wheelchair Review of Systems Review of Systems: All systems reviewed & are unremarkable except as noted in HPI & below Physical Exam Physical Exam: General: patient ill in appearance, answering questions and following commands, hard of hearing Skin: +Pallor, surgical wound LLE with sutures in place, bandage present, no bleeding/erythema/drainage or dehiscence Sacral wound present, open, no bleeding/drainage or malodor HEENT: NC/AT, PERRL, EOMI, anicteric sclera, conjunctiva without injection, external ear normal to inspection and nontender, nares patent, dry mucus membranes, dentition intact, no oropharyngeal lesions, neck supple, trachea midline, no LAD, no thyromegaly, no JVD Heart: +S1/S2, irregularly irregular, tachycardic, no m/r/g Lungs: equal air entry bilaterally, no rales/rhonchi/wheezes Abd: +BS, soft, NT/ND, colostomy in place with brown stool in bag Ext: s/p RIGHT BKA and LEFT AKA Neuro: grossly nonfocal Results & Data Results & Data Vital Signs (Past 12 Hours) Vital Signs Temp Pulse Resp BP Pulse Ox O2 Del Method 05/18/25 03:36 149 H 22 121/97 100 05/18/25 02:51 103 H 24 90/62 L 99 05/18/25 02:45 96 Room Air 05/18/25 02:42 103 H 24 73/51 L 93 05/18/25 02:42 73/51 L 05/18/25 02:36 99 H 14 52/27 L 05/18/25 02:20 96 H 05/18/25 02:18 36.6 C Laboratory Results Laboratory Results WBC 19.05 K/ul (4.8-10.8) H 05/18/25 02:24 RBC 3.22 M/uL (4.70-6.10) L 05/18/25 02:24 Hgb 7.4 g/dl (14.0-18.0) L 05/18/25 02:24 POC Hgb 7.8 g/dl (14.0-18.0) L 05/18/25 02:26 Hct 25.6 % (42.0-52.0) L 05/18/25 02:24 POC Hct 23 % (42-52) L 05/18/25 02:26 MCV 79.5 fL (80.0-100.0) L 05/18/25 02:24 MCH 23.0 pg (25.0-34.0) L 05/18/25 02:24 MCHC 28.9 g/dL (32.0-36.0) L 05/18/25 02:24 RDW Std Deviation 45.6 fL (36.4-46.3) 05/18/25 02:24 RDW Coeff of Chan 15.8 % (11.5-14.5) H 05/18/25 02:24 Plt Count 421 K/uL (130-400) H 05/18/25 02:24 MPV 9.9 fL (9.4-12.4) 05/18/25 02:24 Immature Gran % (Auto) 0.7 % 05/18/25 02:24 Neut % (Auto) 79.3 % 05/18/25 02:24 Lymph % (Auto) 12.2 % 05/18/25 02:24 [place] % (Auto) 7.0 % 05/18/25 02:24 Eos % (Auto) 0.4 % 05/18/25 02:24 Baso % (Auto) 0.4 % 05/18/25 02:24 Neut # (Auto) 15.10 K/uL (1.40-6.50) H 05/18/25 02:24 Lymph # (Auto) 2.33 K/uL (1.20-3.40) 05/18/25 02:24 [place] # (Auto) 1.34 K/uL (0.11-0.59) H 05/18/25 02:24 Eos # (Auto) 0.07 K/uL (0.00-0.50) 05/18/25 02:24 Baso # (Auto) 0.07 K/uL (0.00-0.20) 05/18/25 02:24 Immature Gran # (Auto) 0.14 K/uL (0.01-0.20) 05/18/25 02:24 Ovalocytes 1+ 05/18/25 02:24 Echinocytes 1+ 05/18/25 02:24 PT 13.1 Seconds (9.0-12.0) H 05/18/25 02:37 INR 1.2 (0.9-1.1) H 05/18/25 02:37 APTT 27 Seconds (21-31) 05/18/25 02:37 PTT Ratio 1.0 05/18/25 02:37 Fibrinogen 409 mg/dl (184-400) H 05/18/25 02:37 VBG pH 7.14 (7.36-7.41) L 05/18/25 02:41 VBG pCO2 49 mmHg (38-50) 05/18/25 02:41 VBG pO2 24 mmHg 05/18/25 02:41 VBG HCO3 17 mmol/L 05/18/25 02:41 VBG O2 Saturation < 60.0 % 05/18/25 02:41 VBG Base Excess -12.3 mEq/L 05/18/25 02:41 POC Sodium 141 mmol/L (135-144) 05/18/25 02:26 Sodium 141 mmol/L (136-145) 05/18/25 02:24 POC Potassium 4.7 mmol/L (3.3-5.0) 05/18/25 02:26 Potassium 4.7 mmol/L (3.5-5.1) 05/18/25 02:24 POC Chloride 110 mmol/L (101-112) 05/18/25 02:26 Chloride 109 mmol/L (98-107) H 05/18/25 02:24 Carbon Dioxide 17 mmol/L (21-32) L 05/18/25 02:24 POC Total CO2 16 mmol/L (24-31) L 05/18/25 02:26 Anion Gap 15 (3-11) H 05/18/25 02:24 POC Anion Gap 21.0 mmol/L (16-25) 05/18/25 02:26 POC BUN 19 mg/dl (7-18) H 05/18/25 02:26 BUN 21 mg/dl (6-23) 05/18/25 02:24 Creatinine 1.30 mg/dl (0.6-1.4) 05/18/25 02:24 POC Creatinine 1.4 mg/dl (0.6-1.3) H 05/18/25 02:26 Est Cr Clr Drug Dosing Not Reportable 05/18/25 02:24 eGFR 59.84 05/18/25 02:24 BUN/Creatinine Ratio 16.2 (10-20) 05/18/25 02:24 Glucose 159 mg/dl (70-99(Fasting)) H 05/18/25 02:24 POC Glucose 126 mg/dl (70-99) H 05/18/25 02:34 POC Glucose (other) 148 mg/dl (70-99) H 05/18/25 02:26 Lactate Cancelled 05/18/25 02:41 Calcium 8.6 mg/dl (8.6-10.3) 05/18/25 02:24 POC Ioniz Calcium Ketty 1.11 mmol/l (1.12-1.32) L 05/18/25 02:26 Magnesium 1.8 mg/dl (1.7-2.4) 05/18/25 02:24 Total Bilirubin 0.5 mg/dl (0.2-1.0) 05/18/25 02:24 Direct Bilirubin 0.2 mg/dl (0-0.2) 05/18/25 02:24 AST 12 U/L (13-39) L 05/18/25 02:24 ALT 11 U/L (7-52) 05/18/25 02:24 Alkaline Phosphatase 116 U/L (34-104) H 05/18/25 02:24 Troponin I High Sens 12.8 pg/ml (0-20) 05/18/25 02:24 Total Protein 6.0 gm/dl (6.0-8.3) 05/18/25 02:24 Albumin 2.7 gm/dl (3.4-5.0) L 05/18/25 02:24 Lipase 9 U/L (11-82) L 05/18/25 02:24 Procalcitonin 0.15 ng/ml (0-0.5) 05/18/25 02:24 Random Cortisol 28.30 mcg/dl 05/18/25 02:36 Urine Color Yellow 05/18/25 03:43 Urine Appearance Clear (Clear) 05/18/25 03:43 Urine pH 6.0 (4.5-7.5) 05/18/25 03:43 Ur Specific [place] 1.033 (1.000-1.030) H 05/18/25 03:43 Urine Protein Trace (Negative) H 05/18/25 03:43 Urine Glucose (UA) Negative (Negative) 05/18/25 03:43 Urine Ketones Negative (Negative) 05/18/25 03:43 Urine Blood Negative (Negative) 05/18/25 03:43 Urine Nitrite Negative (Negative) 05/18/25 03:43 Urine Bilirubin Negative (Negative) 05/18/25 03:43 Urine Urobilinogen Negative (Negative) 05/18/25 03:43 Ur Leukocyte Esterase Negative (Negative) 05/18/25 03:43 Urine WBC (Auto) 0-5 /hpf (0-5) 05/18/25 03:43 Urine RBC (Auto) 0-2 /hpf (0-2) 05/18/25 03:43 U Hyaline Cast (Auto) 6-10 /lpf (0-2) H 05/18/25 03:43 U Epithel Cells (Auto) 0-2 /hpf (0-2) 05/18/25 03:43 Urine Bacteria (Auto) None Seen (None Seen) 05/18/25 03:43 Hyaline Casts Present /lpf (None Presnt) A 05/18/25 03:43 Granular Casts Present /lpf (None Prsent) A 05/18/25 03:43 Urine Comment 05/18/25 03:43 Blood Type A Positive 05/18/25 02:30 Antibody Screen NEGATIVE 05/18/25 02:30 Crossmatch See Detail 05/18/25 02:30 Impressions Chest X-Ray 05/18/25 02:31 EXAM: XR chest 1V portable CLINICAL HISTORY: Sepsis. TECHNIQUE: An X-ray image of the chest is obtained in AP projection. COMPARISON: 05/22/2023. FINDINGS: Suboptimal inspiratory effort. Pulmonary Parenchyma: Lungs are clear bilaterally. No evidence of consolidation, collapse, or focal opacities. No pulmonary nodules are identified. The right hemidiaphragm is significantly higher up, up to 6.5 cm, as compared to the left hemidiaphragm. No evidence of pleural effusion or pleural thickening. Heart and Mediastinum: Heart size and shape are normal. No mediastinal widening or masses. No hilar or mediastinal lymphadenopathy. Bony Thorax: Age-appropriate degenerative joint changes are identified in the visualized joints, more clearly visualized in the right shoulder joint. Bony thorax appears intact without acute fractures or deformities. Soft Tissues: Midline sternotomy wired sutures are identified. Soft tissues overlying the chest wall are unremarkable. IMPRESSION: 1. Elevated right diaphragm. 2. No acute cardiopulmonary abnormalities are identified. 3. There is no evidence of lobar consolidation, collapse, pleural effusion, or pneumothorax on either side. 4. No significant interval changes. Electronically signed by Tima Morton 05-18-2025 03:55 AM ECG Additional Comments: EKG with NSR at 98bpm, RBBB present, no acute ischemic changes, possible new inferior infarct when compared with previous PG Care Time/CCT Total # of Minutes Spent Total Time Spent with Patient: Total time spent is greater than 50% in coordination of care (as documented) at patient's floor/unit and/or counseling patient: Coding Level of Care Code 81399 INT INP/OBS CARE 3/75MIN Diagnoses Upper gastrointestinal bleeding K92.2 Lactic acidosis E87.20 Shock R57.9 Chronic kidney disease, stage III (moderate) N18.30 Coronary arteriosclerosis I25.10 COPD (chronic obstructive pulmonary disease) J44.9 Diabetes type 1, controlled E10.9 PAD (peripheral artery disease) I73.9
[2025-05-18] MEDS: STAT IV Infusion **Titration per Protocol STA (03:50)
[2025-05-18] MEDS: PANTOPRAZOLE BOLUS/DRIP IV STA (03:51)
[2025-05-18 03:53] LABS: Lipase 9 U/L (11-82)
[2025-05-18] MEDS: ONDANSETRON INJ 2 MG/ML 2 ML VIAL IV SCH (03:53)
--- NOTE | 2025-05-18 03:55 | XRay Report ---
EXAM: XR chest 1V portable CLINICAL HISTORY: Sepsis. TECHNIQUE: An X-ray image of the chest is obtained in AP projection. COMPARISON: 05/22/2023. FINDINGS: Suboptimal inspiratory effort. Pulmonary Parenchyma: Lungs are clear bilaterally. No evidence of consolidation, collapse, or focal opacities. No pulmonary nodules are identified. The right hemidiaphragm is significantly higher up, up to 6.5 cm, as compared to the left hemidiaphragm. No evidence of pleural effusion or pleural thickening. Heart and Mediastinum: Heart size and shape are normal. No mediastinal widening or masses. No hilar or mediastinal lymphadenopathy. Bony Thorax: Age-appropriate degenerative joint changes are identified in the visualized joints, more clearly visualized in the right shoulder joint. Bony thorax appears intact without acute fractures or deformities. Soft Tissues: Midline sternotomy wired sutures are identified. Soft tissues overlying the chest wall are unremarkable. IMPRESSION: 1. Elevated right diaphragm. 2. No acute cardiopulmonary abnormalities are identified. 3. There is no evidence of lobar consolidation, collapse, pleural effusion, or pneumothorax on either side. 4. No significant interval changes. Electronically signed by Tima Morton 05-18-2025 03:55 AM
[2025-05-18 03:57] LABS: INR 1.2 (0.9-1.1); Partial Thromboplastin Time 27 Seconds (21-31); Prothrombin Time 13.1 Seconds (9.0-12.0)
[2025-05-18] MEDS ORDERED: PANTOprazole 40 MG in DEXTROSE 5% MINI-B 100 ML IV SCH (04:00)
[2025-05-18 04:08] LABS: Appearance Urine Clear (Clear); Bacteria Urine Automated None Seen (None Seen); Epithelial Cell Urine Auto 0-2 /hpf (0-2); Glucose Urine UA Negative (Negative); RBC Urine Automated 0-2 /hpf (0-2); WBC Urine Automated 0-5 /hpf (0-5)
[2025-05-18 04:11] LABS: Fibrinogen 409 mg/dl (184-400)
--- NOTE | 2025-05-18 04:22 | Critical Care Consultation ---
Date of Consultation May 18, 2025 Assessment & Plan (1) Perineal fistula: (2) Colostomy in place: (3) Chronic kidney disease, stage III (moderate): (4) Perirectal abscess: (5) Peripheral arterial disease: (6) Shock: (7) Acute kidney injury: (8) Lactic acidosis: (9) Upper gastrointestinal bleeding: (10) NSAID long-term use: (11) Neutrophilic leukocytosis: Plan Reason Critically Ill: 1. Shock, hypovolemic +/- distributive/septic 2. Acute upper gastrointestinal bleeding, ulcer vs. ayleen evans tear 3. Acute blood loss anemia 2/2 #2 4. RAIN on CKDIII 5. HAGMA 6. Lactic acidosis 7. Perianal fistula and abscess, s/p debridement, chronic. [place] [place] 8. History of MDRO Neuro - [facility] ICU: Negative RASS GOAL 0 APAP PRN pain/fever, judicious opiate use PRN Folic acid Trazodone held for now Cardiac - Follow up EKG showing sinus tachycardia with PACs Continue norepinephrine for MAP goal > 65mmHg Hold home beta simi, chlorthalidone, DAPT Respiratory - Saturating well on room air SpO2 goal > 92% Former smoker, does not carry COPD diagnosis IS/Flutter, HOB 30, aspiration precautions GI - GI consultation, appreciate recommendations PPI Q12H Diet: Strict NPO SUP: PPI Bowel regimen: Held while NPO CT AP pending RENAL/LYTES - Pre-renal RAIN Trend lactate to clearance Replete electrolytes as indicated Rodgers for accurate I/Os Maintain net even to net negative ENDO - Random cortisol 28, pressor requirement improving with resuscitation, no current indication for SDS BG 140-180 per SCCM guidelines ISS if needed while inpatient Continue Levoxyl when able to take PO HEME - Transfuse for HGB < 7 or active bleeding Serial H/H ordered PT/INR pending Hold DAPT given GIB ID - Seen by ID in past for MDRO, perianal abscess, wound infections. Last course of abx was Bactrim and Levaquin until 04/16/2025 Continue cefepime/vancomycin pending culture data. This is appropriate based on prior culture data Procalcitonin is borderline BC x2 pending, UA not grossly infected, wound culture taken by ED pending Wound care consult, appreciate recommendations Can consider ID involvement but neither wound appears infected at this time LINES/TUBES/DRAINS - PIV x3 Rodgers (Day #1) - keep for now Ostomy DVT PROPHYLAXIS - Held i/s/o GI bleeding I have personally spent 48 minutes of critical care time in the direct management of this patient. This is a life/limb threatening event. This includes time spent evaluating patient, direct bedside care, chart review, placing orders, interpretation of diagnostic studies, discussion with consultants, patient, and family members, as well as other required patient management activities. This time is exclusive of all separately billable procedures, and teaching time and separate from and in addition to any other critical care service time. Thank you for allowing us to participate in the care of this patient. Please refer to my attending physician's documentation for any further recommendations. Supervising Physician Co-Signing Physician Notes Patient seen and examined. EMR reviewed. Discussed extensively with bedside critical care nurse as well as with critical care LIZZ. Agree with assessment plan as noted. Please refer to my supplemental communication from 05/18/2025 for additional details History of Present Illness Reason for Consultation: Shock Requesting Physician: Lucia Attending Physician: Eriberto History of Present Illness Mr. Ron Chowdhury is a 70YOM with a history of ambulatory dysfunction, CAD, s/p porcine valve replacement, PAD s/p BLE amputations, gastroparesis, IDDMI ([]), MDRO (wound and urine), BKA revision due to infection, BPH, perianal abscess with fistula tract s/p debridement who presented to [facility] ED in the early hours of 05/18/2025 due to decreased responsiveness at home. Per report, patient had eaten a spicy pork chop for dinner. ?choked on the pork chop and coughed. Had an episode of emesis at home family describes as brown in color. He subsequently became unresponsive and EMS was summoned. Hypotensive with SBP 50s on arrival to ED. Work-up revealed leukocytosis with neutrophil predominance, HGB 7.4 with baseline around 9, RAIN on CKD, lactic acidosis of 10.6, pH 7.14. Patient responsive in ED with improvement in BP. Received empiric cefepime/vancomycin, 3L NSS, 1U PRBC. Started on norepinephrine. Admitted to ICU for continuation of care. Patient was seen in ED B01. He is AAOx3. [place]. Hypotensive and tachycardic. Saturating well on room air and in no acute distress. Low dose norepinephrine infusing. Pallor. Emesis x2, bright red blood. Skin assessed - ostomy with brown stool in bag, LLE stump incisional site is well-approximated, C/D/I, no drainage or erythema. RLE stump is well healed. Perineal/sacral incision is open, healthy color, kerlex packing in place, no purulence or significant drainage. ROS + nausea, abdominal discomfort, hip pain, otherwise 10-point ROS is negative. Amnesic to events including transport to hospital. Did have some nausea and vomiting prior to EMS arrival, unsure of character. Only started feeling ill Monday evening. Allergies Allergy/AdvReac Type Severity Reaction Status Date / Time No Known Allergies Allergy Unknown Verified 04/15/25 14:10 Home Medications Medication Instructions Recorded Confirmed Type aspirin 81 mg tablet,delayed 81 mg PO QAM 05/04/21 05/18/25 History release (Mohit Low Dose Aspirin) Replacement Brakes for Manual #1 ea 05/12/23 04/15/25 Rx Wheelchair Mattress (Air or other) #1 ea 06/19/23 04/15/25 Rx Wheelchair (Manual) (Manual #1 ea 06/19/23 04/15/25 Rx Wheelchair) simethicone 125 mg capsule (Gas-X 125 mg PO DAILY PRN abdominal 07/24/23 05/18/25 Rx Extra Strength) distention #14 caps ondansetron 4 mg disintegrating 4 mg PO Q6H PRN nausea and 07/25/23 05/18/25 Rx tablet vomiting #30 tabs 10 incches wedge pillow #1 ea 11/01/23 04/15/25 Rx acetaminophen 500 mg tablet 500 mg PO Q8 PRN Pain 02/22/24 05/18/25 History (Tylenol Extra Strength) AQUACEL AG #30 ea 03/12/24 04/15/25 Rx Optifoam #30 ea 03/12/24 04/15/25 Rx levocetirizine 5 mg tablet 5 mg PO QPM #90 tabs 05/09/24 05/18/25 Rx ferrous sulfate 325 mg (65 mg 325 mg PO BID #60 tabs 06/24/24 04/15/25 Rx iron) tablet,delayed release chlorthalidone 25 mg tablet 25 mg PO QAM #90 tabs 11/13/24 09/07/25 Rx ABBEY Leighion #1 ea 08/23/24 04/15/25 Rx insulin aspart U-100 100 unit/mL See Rx Instructions continuous 09/10/24 05/18/25 Rx subcutaneous solution (Novolog subcutaneous infusion CONTINOUS U-100 Insulin aspart) #60 mL clopidogrel 75 mg tablet (Plavix) 75 mg PO QAM #90 tabs 10/22/24 05/18/25 Rx folic acid 1 mg tablet 1 mg PO QAM #90 tabs 10/22/24 05/18/25 Rx metoprolol tartrate 25 mg tablet 12.5 mg (1/2 x 25 mg) PO BID #90 11/15/24 05/18/25 Rx tabs atorvastatin 80 mg tablet (Lipitor) 80 mg PO HS #90 tabs 11/29/24 05/18/25 Rx calcitriol 0.25 mcg capsule 0.25 mcg PO QAM #30 caps 01/22/25 05/18/25 Rx pantoprazole 40 mg tablet,delayed 40 mg PO QAM 01/26/25 05/18/25 History release (Protonix) tamsulosin 0.4 mg capsule 0.4 mg PO QAM 01/26/25 05/18/25 History trazodone 100 mg tablet 100 mg PO HS PRN Sleep 01/26/25 05/18/25 History ibuprofen 200 mg tablet 400 mg PO Q6H PRN Pain 02/06/25 05/18/25 History levothyroxine 200 mcg tablet 200 mcg PO QAM 02/06/25 05/18/25 History oxycodone 5 mg tablet 5 - 10 mg PO Q6H PRN pain 02/06/25 05/18/25 History potassium chloride 20 mEq 20 meq PO BID #180 tabs 03/25/25 05/18/25 Rx tablet,extended release magic mix 1 applic topical BID 03/31/25 05/18/25 History Patient History Medical History CKD stage 3 secondary to diabetes PAD (peripheral artery disease) s/p B/L LE stenting and LLE bypass Ambulatory dysfunction WC bound Colostomy in place Insulin pump in place Chronic wound left groin area, recently under anesthesia thru [facility] 01/09/25, for evaluation of his wound, "which surgeon stated no surgical intervention necessary at that time" History of aortic stenosis s/p porcine valve replacement (2015) + CABG x1 Follows with [facility] cardio Diabetic peripheral neuropathy associated with type 1 diabetes mellitus History of COPD History of BPH Hx of chronic kidney disease Above knee amputation of left lower extremity History of nephrolithiasis Gastroparesis Anemia 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) Hx MRSA infection 01/2022 (left heel) History of colon polyps History of Clostridium difficile infection s/p treatment (2020) Below-knee amputation of right lower extremity Clostridium difficile colitis hx, 2020, resolved DVT prophylaxis hx Folate deficiency GERD (gastroesophageal reflux disease) Vitamin D deficiency Surgical History History of surgery EUA, debridement of perineal cyst 01/09/25: under GA at [facility]; no issues reported History of below-knee amputation of right lower extremity History of left above knee amputation 07/2022 History of intestinal surgery (2022) w/creation colostomy, [facility] Hx laparoscopic cholecystectomy (07/17/23) Robotic assisted Laparoscopic Cholecystectomy(Not Applicable) - Markus Dawson DO, FACS Hx of cystoscopy w/stent placement; stent then removed History of skin graft Split Thickness Skin Graft of Left Lateral Ankle (11/18/20): LMA#5, atraumatic x1 at [facility] Hx of surgical procedure Left Leg Wound Debridement and Irrigation History of arterial bypass of lower extremity Left femoral to PT composite bypass graft (06/2020), Right femoral to PT bypass graft 01/2021, Removal right fem-pop bypass 03/2021 (graft occluded) History of carpal tunnel release R/L History of tooth extraction History of tonsillectomy History of myringotomy w/tubes bilat. S/P femoropopliteal bypass surgery Right fem-pop bypass graft (01/19/21): Grade 2 view, MAC 3.0, ETT 8.0 at [facility] Left femoral to PT composite bypass graft (06/2020) History of cardiac cath x2, most recent 2016 > no stents (subsequent CABG with AVR in 2016); [facility] History of umbilical hernia repair S/P insertion of iliac artery stent B/L iliac stent placement (2014) H/O endarterectomy R common femoral (11/2018) History of open reduction and internal fixation (ORIF) procedure LLE (1970s) History of colonoscopy History of esophagogastroduodenoscopy (EGD) H/O cataract extraction R/L History of ankle surgery left ankle, repair left ankle, hardware removed History of coronary artery bypass graft CABG x1 + AVR (2015) 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 Left transmetatarsal amputation (11/23/21): LMA# 5.0 at [facility]. No issues noted per post-op anesthesia progress note. HX 1 SX TO REMOVE ALL TOES LEFT FOOT NOVEMBER 2021 Family History Brother Family history of diabetes mellitus Sister Family history of diabetes mellitus Mother Family history of diabetes mellitus Grandmother (Maternal) Family history of diabetes mellitus Uncle Family hx of colon cancer Colorectal cancer Father Family history of esophageal cancer Sister Family history of diabetes mellitus Other No family history of adverse response to anesthesia Denies family history of Ovarian cancer Prostate cancer Myocardial infarction Breast cancer Social History Smoking Status: Former smoker Tobacco Type: Cigarettes and Smokeless Tobacco (Dip or Chew) Age Started Using Tobacco: 15; Age Quit Using Tobacco: 53; packs per day: 1; Cigarettes Per Day: 20; Smoking End Date: 25 years ago; Second Hand Exposure: No; Do You Dip or Chew Tobacco: No; Hx Alcohol Use: No Hx Substance Use: No Preferred Language: [place] Communication Ability: Effective Visual Impairment: No Limitations Hearing Ability: Hard of Hearing Snuff Grinder Required: No Beliefs That Will Affect Care: None marital status: Current Living Situation: Family Current Living Situation Comment: Daughter is living with him current occupational status: disabled How many Children do You have: 2 How many Children do You have Comment: family assists with care, also is part of the waiver program so the pt's roommate is able to assist with care through this program Other Information That Helps Us Care for You: No Feels Safe at Home: Yes Safety Concerns: Feels Safe At This Time Childhood Exposure to Second-Hand Smoke: Yes Diet: diabetic Diet Comment: Carb Counts. ([id number], roughly), protein drinks caffeine: Yes (coffee, rarely ) during the past year weight has: remained stable Dental Care, Regularly: No Seatbelt Use: always Sunscreen Use: No Gender Identity: Male Assistive Devices: Hospital Bed Assistive Devices Comment: Family reports that patient remains in his hospital bed Review of Systems Review of Systems: All systems reviewed & are unremarkable except as noted in Subjective Physical Exam Constitutional: + morbidly obese, + frail appearing and cooperative; no acute distress Eyes: PERRL, conjunctivae normal, anicteric sclerae ENMT: external ear and nose normal, oropharynx normal Neck: trachea midline, no thyromegaly Respiratory: normal respiratory effort, lungs clear to auscultation Cardiovascular: Rate/Rhythm: + tachycardic and + irregularly irregular Heart Sounds: + murmur Vessels: femoral pulses present; no JVD BLE amputations Gastrointestinal (Abdomen): Inspection/Auscultation: normal bowel sounds; abdomen not distended Percussion/Palpation: + abdomen tender and abdomen soft; no guarding and abdomen not rigid Extensive perianal incision and open wound with granulation tissue, no drainage, kerlex packing in place. No active bleeding. Ostomy healthy appearing, light brown stool in bag. Musculoskeletal: Head/Neck/Chest: normocephalic and head atraumatic BUE strength and sensation 5/5 Skin: + turgor decreased and + wound; no fluct ulance Neurologic: PERRL, EOMI, accommodation nl, no face palsy, no dysarthria Genitourinary: Rodgers in place draining light yellow urine Results & Data Results & Data Vital Signs (Past 12 Hours) Vital Signs Temp Pulse Resp BP Pulse Ox O2 Del Method 05/18/25 03:55 124 H 22 97/80 L 100 05/18/25 03:52 35.6 C L 127 H 20 97/80 L 100 05/18/25 03:50 123 H 22 117/74 100 05/18/25 03:45 128 H 20 122/63 100 05/18/25 03:41 124 H 24 99/62 L 100 05/18/25 03:36 149 H 22 121/97 100 05/18/25 03:35 133 H 24 121/97 99 05/18/25 03:27 100 H 20 69/44 L 100 05/18/25 03:27 125 H 05/18/25 03:02 100 H 20 81/40 L 100 05/18/25 02:57 102 H 22 78/29 L 98 05/18/25 02:51 103 H 24 90/62 L 99 05/18/25 02:45 96 Room Air 05/18/25 02:42 103 H 24 73/51 L 93 05/18/25 02:42 73/51 L 05/18/25 02:36 99 H 14 52/27 L 05/18/25 02:20 96 H 05/18/25 02:18 36.6 C Laboratory Results Reviewed Diagnostic Findings Reviewed Medications Administered See MAR Coding Level of Care Code 64221 CRITICAL CARE 1ST 30-74M Diagnoses Perineal fistula N36.[address] Z93.3 Chronic kidney disease, stage III (moderate) N18.30 Perirectal abscess K61.1 Peripheral arterial disease I73.9 Shock R57.9 Acute kidney injury N17.9 Lactic acidosis E87.20 Upper gastrointestinal bleeding K92.2 NSAID long-term use Z79.1 Neutrophilic leukocytosis D72.828 Time Spent (min) 48
[2025-05-18 04:46] LABS: Amphetamines+Metham, Urine Neg (Neg); MDMA (Ecstacy), Urine Neg (Neg); Marijuana, Urine Neg (Neg)
--- NOTE | 2025-05-18 04:48 | CT Scan Report ---
EXAM: CT abd pelvis IV con only CLINICAL HISTORY: Pelvic wounds, eval for infection TECHNIQUE: Multiple contiguous axial images were obtained from the level of diaphragm to the pubis symphysis. This study was acquired after the IV administration of iodinated contrast material, given the patient's indications for the examination. If IV contrast material had not been administered, the likelihood of detecting abnormalities relevant to the patient's condition would have been substantially decreased. Coronal and sagittal reformatted images were generated and reviewed to improve anatomic localization and optimize lesion detection. CT scan was performed according to ALARA (as low as reasonable achievable). COMPARISON: 04/02/2025 15:43:56 MARKETING ANALYST FINDINGS: Dependent atelectasis is seen bilaterally. The visualized lung bases are clear. Aortic and coronary artery calcification is seen. The liver is normal in size and attenuation. No focal liver lesions are seen. There is no intra or extrahepatic biliary ductal dilatation. Hepatic vasculature is patent. The gallbladder is not seen. The spleen shows non enhancement in the medial part-possible infarct. The right adrenal gland shows a hypoattenuating nodule measuring 20mm with average attenuation of 20HU. The left adrenal gland is unremarkable. Pancreas is atrophic. The kidneys are normal in size and attenuation. There is no hydronephrosis or perinephric fat stranding. No renal masses are identified. A calculus measuring 10x4mm is seen in the lower polar calyx of left kidney. The ureters are normal in caliber and no ureteral calculi are seen. The bladder is mildly distended. The stomach is distended and is filled with contents. No evidence of focal or diffuse bowel wall thickening or evidence of bowel obstruction is seen. Diffuse wall thickening seen in distal ascending colon and hepatic flexure. Rest of the large bowel is collapsed. Stoma seen in left lower abdomen. A linear tract is seen in the pelvis on left side of midline with air within communicating with the anorectal region. It is seen to be involving the left external sphincter as well. No adenopathy or fluid collections are seen. The aorta and its branches show atherosclerotic wall calcification. No aggressive appearing osseous lesions are identified. IMPRESSION: 1. 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 Advise MR fistulogram for further delineation. 2. Non obstructive left renal calculus - stable. 3. Hypoattenuating right adrenal nodule - stable. Advise CT with adrenal protocol for further characterization. 4. The spleen shows non enhancement in the medial part-possible infarct. New finding. Advised further evaluation. 4. Diffuse wall thickening seen in distal ascending colon and hepatic flexure-possible colitis. New finding. 5. Rest of the large bowel is collapsed. Stoma seen in left lower abdomen. Electronically signed by Arnol Espino 05-18-2025 04:47 AM
[2025-05-18] MEDS ORDERED: ONDANSETRON INJ 2 MG/ML 2 ML VIAL IV PRN (04:57)
[2025-05-18] MEDS ORDERED: ACETAMINOPHEN 325 MG TAB PO PRN (04:57)
[2025-05-18] MEDS ORDERED: VANCOMYCIN HCL / NSS 1,000 MG/270 ML BAG IV SCH (05:00)
--- NOTE | 2025-05-18 05:36 | Pharmacy Report ---
Pharmacy PK ABX Note - Date of Service May 18, 2025 - Assessment and Plan Assessment 70 year old M receiving vancomycin/cefepime for empiric treatment of hypotension. Patient has a history of a perirectal fistula with colostomy last antibiotic course Bactrim and Levaquin finished 04/16/25 for wound culture 04/02/25 with MSSA, pseudomonas, and stenotrophomonas. Pertinent microbiologic data includes: blood and wound cultures pending. Day # 1 of antimicrobial therapy. Plan Vancomycin * Loading dose: 1750 mg IV x 1 * Maintenance dose: 750 mg IV every 12 hours starting at 1700 * Regimen is predicted to achieve target AUC/SÁNCHEZ of 400-600 mg/L.hr * Random level ordered for: 05/18/25 @ 0430 Pharmacy will continue to follow and will adjust dose/frequency as necessary. Thank you. Pharmacy has transitioned to AUC monitoring for vancomycin. AUC/SÁNCHEZ is the preferred PK/PD target and is associated with decreased risk of nephrotoxicity compared to traditional trough targets.
[2025-05-18] MEDS: PANTOprazole 40 MG in DEXTROSE 5% MINI-B 100 ML IV SCH (05:39)
[2025-05-18] MEDS: LEVOTHYROXINE SODIUM 200 MCG TABLET PO SCH (05:53)
[2025-05-18 05:55] VITALS: BP 106/59
[2025-05-18 06:06] LABS: Hematocrit (blood only) 25.9 % (42.0-52.0); Hemoglobin 8.0 g/dl (14.0-18.0)
[2025-05-18 06:15] LABS: Base Excess VBG -14.6 mEq/L; HCO3 VBG 15 mmol/L; Oxygen Saturation VBG < 60.0 %; PCO2 VBG 48 mmHg (38-50); PO2 VBG 34 mmHg; pH VBG 7.10 (7.36-7.41)
[2025-05-18] MEDS: LACTATED RINGER'S 500 ML IV ONE (06:20)
[2025-05-18 06:22] LABS: Creatine Kinase 96.0 U/L (30-223); Magnesium 1.6 mg/dl (1.7-2.4)
[2025-05-18] MEDS: SODIUM BICARB 8.4% INJ 50 MEQ/50 ML SYR IV STA (06:28)
[2025-05-18] MEDS: METOCLOPRAMIDE HCL INJ 5 MG/ML 2 ML VIAL IV ONE (06:37)
[2025-05-18] MEDS ORDERED: MAGNESIUM SULFATE / D5W 1 GM/100 ML BAG IV SCH (06:45)
[2025-05-18 06:57] VITALS: TEMP 97.3
[2025-05-18] MEDS ORDERED: VECURONIUM BROMIDE 10 MG VIAL IV ONE (07:42)
[2025-05-18] MEDS ORDERED: MIDAZOLAM HCL 125MG/250ML D5W IV ONE (08:03)
[2025-05-18 08:19] VITALS: PULSE 92; O2SAT 100
--- NOTE | 2025-05-18 08:23 | Procedure Note ---
Procedure Note Date of Service May 18, 2025 CPR note: Called by bedside nurse to evaluate patient for hypotension. Was in the process of preparing patient for an arterial line placement when he became unresponsive with a significant decrease in heart rate. Decision was made to proceed with intubation. Please see separate note. CPR was initiated. The patient received CPR for total of 3 rounds. Eventually we were able to achieve return of spontaneous circulation on an epinephrine infusion. Additional volume was administered as well. [id number] ultrasound/echocardiogram was performed with poor acoustic windows however cardiac motion was identified with no pericardial effusion. Please refer to critical care addendum for additional details [facility] Procedure Codes (Charges) Resuscitation Resuscitation: 77748 Heart/lung resuscitation CPR Coding CPT Codes Resuscitation - Resuscitation: 14834 Heart/lung resuscitation CPR ([id number]) Additional Codes Date of Service ([facility].[email or web address])
--- NOTE | 2025-05-18 08:24 | Procedure Note ---
Procedure Note Date of Service May 18, 2025 INTUBATION PROCEDURE NOTE: Provider: Rashid Rios MD A time-out was completed verifying correct patient, procedure, site, positioning. Patient was evaluated and required intubation for respiratory arrest in the setting of cardiopulmonary arrest No medications administered Emergent consent was implied given patients rapidly declining clinical status and need for airway protection. The patient was prepared in the appropriate fashion. Patient was actively undergoing CPR. During a break for pulse check, video laryngoscopy was performed with the glottis easily visualized. A 7.5 endotracheal tube was rapidly passed with the balloon inflated and colorimetric change identified. Of note there was significant blood in the posterior oropharynx. Post Intubation Chest X-ray confirms placement without pneumothorax. Patient tolerated the procedure well and there were no immediate complications. [facility] Procedure Codes (Charges) Resuscitation Resuscitation: 71991 Endotracheal Intubation, emergency Coding CPT Codes Resuscitation - Resuscitation: 59966 Endotracheal Intubation, emergency ([id number]) Additional Codes Date of Service ([facility].SURGERY)
[2025-05-18] MEDS ORDERED: CALCIUM CHLORIDE 10% 10 ML SYR IV ONE (08:27)
--- NOTE | 2025-05-18 08:27 | Procedure Note ---
Procedure Note Date of Service May 18, 2025 ARTERIAL LINE PROCEDURE NOTE: Procedure: Arterial Line Placement Provider: Rashid Rios MD Indication: Monitoring on Pressors Anesthesia: None Procedure was emergent.. Ultrasound was performed of the patient's bilateral radial arteries. They were extremely small vessels and appeared clotted. They were not appropriate for catheterization. The patient has already undergone bilateral femoral endovascular procedures so that was not felt to be a good option either. Therefore elected to perform axillary arterial line. The left axilla was cleaned and draped in normal sterile fashion. Sterile field was established. Under ultrasound, the axillary artery was identified. It was accessed using an 18-gauge needle. Syringe was detached leaving the needle in place with bright red blood return. A wire was passed easily. The needle was removed leaving the wire in place. A skin corry was made with a scalpel and a 12 cm catheter advanced over the wire and into the artery. The wire was removed with backbleeding identified. Catheter was attached to the cable and a waveform was identified. Blood Loss: 5 cc Complications: None Coding Additional Codes Date of Service ([facility].[email or web address])
--- NOTE | 2025-05-18 08:31 | Procedure Note ---
Procedure Note Date of Service May 18, 2025 CENTRAL LINE PROCEDURE NOTE: Procedure: Central Line Placement Provider: Rashid Rios MD Indication: Central Drug Administration, Poor Venous Access, Multiple Lab Draws Necessary, etc. Anesthesia: 5 cc 1% lidocaine Site: Left subclavian Procedure was emergent. Patient intubated and notable to provide consent. No family immediately available A time-out was completed verifying correct patient, procedure, site, positioning, and implants(s) or special equipment if applicable. Patients left clavicular area was cleansed and draped in the typical sterile fashion using Chloraprep. The superficial tissue was anesthetized using 5 mL of 1% lidocaine without epinephrine under direct visualization with the ultrasound. After adequate anesthetization was achieved, the left subclavian vein was cannulated using an introducer needle on a syringe. Good venous blood return was maintained prior to removal of syringe from introducer needle. Using Seldinger Technique, a guide wire was advanced through the introducer needle without resistance. The introducer needle was removed. A small incision was made in penetrating fashion at the guide wire insertion site utilizing an 11 blade scalpel. The dilator was advanced to the vessel without resistance. The dilator was exchanged for the triple lumen catheter which was advanced into the vessel without resistance. The guide wire was removed intact from the catheter without issue. Claves were placed on each catheter tip with confirmation of good blood flow from each lumen. Each port was easily flushed with sterile saline. The catheter was placed at the hub and sutured in place. BioPatch was applied to the catheter and a sterile Tegaderm dressing was applied over the catheter with careful attention to sterility. Patient tolerated procedure well. No immediate complications were met. Post procedure x-ray was completed, placement was appropriate and no pneumothorax was noted. Images obtained are saved for permanent record Coding Additional Codes Date of Service ([email or web address])
[2025-05-18 08:36] VITALS: RESP 18
[2025-05-18] MEDS ORDERED: STAT IV Infusion **Titration per Protocol STA (08:39)
[2025-05-18] MEDS ORDERED: Standard Conc; 4 MG in 250 mL for HYPOTENSION IV SCH (08:45)
[2025-05-18] MEDS ORDERED: VASOPRESSIN 20 UNITS in SODIUM CHLORIDE 0.9% 100 ML IV SCH (08:45)
[2025-05-18] MEDS ORDERED: VASOPRESSION #-# Do NOT Titrate #-# Option IV SCH (08:45)
[2025-05-18 08:50] LABS: Alanine Aminotransferase 24.0 U/L (7-52); Albumin Globulin Ratio 0.9 (0.9-2); Alkaline Phosphatase 89.0 U/L (34-104); Anion Gap 24.0 (3-11); Bilirubin,Total 0.4 mg/dl (0.2-1.0); Blood Urea Nitrogen 23.0 mg/dl (6-23); Calcium 9.8 mg/dl (8.6-10.3); Carbon Dioxide 12.0 mmol/L (21-32); Chloride 111.0 mmol/L (98-107); Creatinine Clr Calc Pharmacy 61.1 ml/min; Globulin 2.2 gm/dl (2.5-4.0); Glucose 196.0 mg/dl (70-99(Fasting)); Magnesium 1.9 mg/dl (1.7-2.4); Potassium 4.5 mmol/L (3.5-5.1); Sodium 147.0 mmol/L (136-145); Total Protein 4.2 gm/dl (6.0-8.3)
[2025-05-18 09:00] LABS: Hematocrit (blood only) 19.0 % (42.0-52.0); Hemoglobin 5.6 g/dl (14.0-18.0); Mean Corpuscular Hemoglobin 24.3 pg (25.0-34.0); Mean Corpuscular Volume 82.6 fL (80.0-100.0); Platelet Count 289 K/uL (130-400); RDW Standard Deviation 48.7 fL (36.4-46.3); Red Blood Count 2.30 M/uL (4.70-6.10); White Blood Count 24.69 K/ul (4.8-10.8)
[2025-05-18] MEDS ORDERED: CALCITRIOL 0.25 MCG CAPSULE PO SCH (09:00)
--- NOTE | 2025-05-18 09:04 | XRay Report ---
XR chest 1V portable CLINICAL HISTORY: s/p intubation/central line COMPARISON STUDY: Chest radiograph May 18, 2025 at 2:48 AM. FINDINGS: There is no pneumothorax following placement of a left subclavian central line. Tip project s over the cavoatrial junction. Tip of nasogastric tube is below the lower aspect of this image but a t least within the proximal stomach. Tip of endotracheal tube is 3.3 cm above the radha. Low lung vo lumes are unchanged. There is no consolidation to suggest pneumonia. No evidence for pulmonary edema. There are median sternotomy wires and a prosthetic aortic valve. IMPRESSION: 1. Satisfactory positioning of lines and tubes. 2. No pneumothorax. ACT 112: Negative or not required by law. Electronically signed by: Benji Oconnell M.D. 05/18/2025 9:03 AM
--- NOTE | 2025-05-18 09:19 | Communication Note ---
Date of Service: May 18, 2025 Patient was seen and examined after discussing with the critical care LIZZ. Shortly after this morning was notified by the bedside nurse that the patient was doing poorly with increasing pressor requirements. I evaluated the patient at bedside. Due to his vascular disease, it was unclear how accurate noninvasive blood pressure monitoring was. Elected to pursue arterial line. Ultrasounded both wrists but radial arteries were either clotted or so small with low flow that they were not targets. While in the process of preparing for an axillary line given that the patient is had bilateral femoral arterial procedures, the patient became less responsive. Heart rate was decreasing. We were unable to palpate pulses and CPR was initiated. He completed several courses of CPR and during the course of that I successfully intubated the patient with a glide scope. We were able to get return of spontaneous circulation. Norepinephrine drips were translated to epinephrine drips. An OG tube was placed with about 300 cc of dark blood. Patient was rapidly transfused with an additional 4 units of packed red cells. An axillary arterial line and central line were placed. Additional volume was administered. Multiple boluses of calcium and bicarb were administered. Labs returned with a lactate greater than 18 and persistent acidosis. At that point I rereviewed the CT scan. There appears to be a splenic infarct and there was concern about potential intestinal ischemia. The patient was to unstable to consider any imaging or any surgical intervention at this point in time. Endoscopy was also not an option given the fact that we are having to restart CPR fairly frequently. During the course of our evaluation he also started to transition into a wide-complex tachycardia and required cardioversion/defibrillation 5 or 6 occasions. We were able to get a perfusing rhythm back for a short period of time but the patient rapidly dete riorated back into non-perfusing rhythms, PEA, V-fib, and V. tach. Amiodarone, lidocaine, and magnesium were all administered. Despite these interventions the patient remained hemodynamically unstable and was unable to obtain and sustain spontaneous perfusion. I contacted the patient's daughter, Dara Chowdhury and updated her by phone. She presented with her immediately to bedside. During the course of their arrival CPR had to be reinitiated. Multiple oiyxk-ik-rdnv ultrasounds were performed which revealed no pericardial effusion or tamponade but low flow and minimal contractility. I became clear that this course was not reversible. Discussed with family at bedside and they elected to not pursue additional resuscitative efforts. We were able to get a perfusing rhythm but after about 3 minutes, it deteriorated into a wide-complex bradycardia and eventually terminal asystole. I assessed the patient at 911. He had no pulse. Pupils fixed and dilated. No cardiac auscultation sounds. No response to verbal tactile stimulus. Patient pronounced at 911. [facility] [employer] will be notified. Please refer to hospitalist notes for additional details An additional 95 minutes in critical care time was spent in evaluation management this patient exclusive of procedures Coding Level of Care Code 12139 CRITICAL CARE EA ADD 30M
--- NOTE | 2025-05-18 10:52 | Electrocardiogram Report ---
Test Reason : Blood Pressure : */* mmHG Vent. Rate : 98 BPM Atrial Rate : 98 BPM P-R Int : 158 ms QRS Dur : 136 ms QT Int : 370 ms P-R-T Axes : 76 75 5 degrees QTcB Int : 472 ms Normal sinus rhythm Right bundle branch block Inferior infarct , age undetermined Abnormal ECG When compared with ECG of 31-Mar-2025 16:27, Premature atrial complexes are no longer Present Criteria for Anterior infarct are no longer Present Inferior infarct is now Present Confirmed by Joselo Downey ([id number]) on 05/18/2025 10:52:44 AM Referred By: REFERRED SELF Confirmed By: Joselo Downey
--- NOTE | 2025-05-18 11:05 | Discharge Summary ---
Discharge Summary Date of Service May 18, 2025 Principal Dx & Hospital Course #1 = Principal Diagnosis (1) Lactic acidosis: (2) Intestinal ischemia: (3) Upper gastrointestinal bleeding: (4) Shock: (5) Chronic kidney disease, stage III (moderate): (6) Coronary arteriosclerosis: (7) COPD (chronic obstructive pulmonary disease): (8) Diabetes type 1, controlled: (9) PAD (peripheral artery disease): Edna Chowdhury is a 70 year old male admitted to [facility] on May 18, 2025 due to low blood pressure. He was fluid resuscitated and started on vasopressors. He vomited blood while in the CT scan and was transfused 1 unit of blood. He was initially stabilized but then had worsening hypotension again. He became unresponsive with significant decrease in heart rate. Decision was made to proceed with intubation. He lost his pulse and CPR was initiated. The patient received CPR for total of 3 rounds. Eventually we were able to achieve return of spontaneous circulation on an epinephrine infu tamra. Additional volume was administered as well. Kfwrj-fs-marl ultrasound/echocardiogram was performed with poor acoustic windows however cardiac motion was identified with no pericardial effusion. Norepinephrine drips were translated to epinephrine drips. An OG tube was placed with about 300 cc of dark blood. Patient was rapidly transfused with an additional 4 units of packed red cells. An axillary arterial line and central line were placed. Additional volume was administered. Multiple boluses of calcium and bicarb were administered. Labs returned with a lactate greater than 18 and persistent acidosis. He started to transition into a wide-complex tachycardia and required cardioversion/defibrillation 5 or 6 occasions. We were able to get a perfusing rhythm back for a short period of time but the patient rapidly deteriorated back into non-perfusing rhythms, PEA, V-fib, and V. tach. Amiodarone, lidocaine, and magnesium were all administered. Despite these interventions the patient remained hemodynamically unstable and was unable to obtain and sustain spontaneous perfusion. The patient's daughter was contacted, Dara Chowdhury and updated by phone. She presented with her immediately to bedside. During the course of their arrival CPR had to be reinitiated. Multiple hmdma-wt-gnbo ultrasounds were performed which revealed no pericardial effusion or tamponade but low flow and minimal contractility. It became clear that this course was not reversible. Discussed with family at bedside and they elected to not pursue additional resuscitative efforts. We were able to get a perfusing rhythm but after about 3 minutes, it deteriorated into a wide-complex bradycardia and eventually terminal asystole. Mr Chowdhury was confirmed at 9:11am. Autopsy will be performed to determine cause of but suspected to be intestinal ischemia causing massive gastrointestinal bleed and subsequent shock and refractory lactic acidosis at this time. Admission HPI Per Admitting Provider Ron Chowdhury is a 70yo male with multiple medical comorbidities presenting from home with hypotension. Patient with episode of hematemesis while in CT scan. Mr. 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 He presents from home this evening by EMS for hypotension. Patient's daughter recently moved back in with him with her boyfriend which has been a very stressful situation for the patient. This evening the daughter made the patient a spicy pork chop around 20:00. After the patient ate he developed some abdominal pain, nausea, and vomiting brown liquid. Later in the evening his daughter found to be minimally responsive. EMS was called - when they arrived to the house they found the patient laying in his hospital bed in the living room, semiconscious, pale, cold, clammy and limp. He had a bucket on his lap with vomit and some on his chest. BSG was 173. Pulse weak - blood pressure on EMS report variable, noted to be 75/52 at one point. In the ER patient found to be hypothermic, tachycardic and hypotensive He had an episode of hematemesis in the ER - vomiting appx 50mL of bright, red blood ER Course: NSS x 3L Levophed 1u PRBCs - Type O negative Cefepime 2gm Vancomycin 1750mg Narcan 0.4mg IV Protonix bolus and drip Zofran 4mg IV Admission Exam Per Admitting Provider Patient Discharge Plan Discharge Items Patient Disposition: Other Date/Time: 05/18/25 09:11 Hospital Stay Data Consultations 05/18/25 03:34 Consult [facility]age Hand Routine ED Decision to Admit Stat 05/18/25 03:56 Consult Gastroenterology Routine 05/18/25 04:57 Consult [facility] Routine Diagnostic Imagining Performed 05/18/25 02:32 CT Abd and Pelvis [CT abd pelvis IV con only] Stat Total Time Total Time Spent Total Time Spent (In Minutes): 50 Coding Level of Care Code None Diagnoses Lactic acidosis E87.20 Intestinal ischemia K55.9 Upper gastrointestinal bleeding K92.2 Shock R57.9 Chronic kidney disease, stage III (moderate) N18.30 Coronary arteriosclerosis I25.10 COPD (chronic obstructive pulmonary disease) J44.9 Diabetes type 1, controlled E10.9 PAD (peripheral artery disease) I73.9
[2025-05-18] MEDS ORDERED: CEFEPIME 2000MG 2,000 MG/20 ML SYR IV SCH (15:00)
[2025-05-18] MEDS ORDERED: VANCOMYCIN 750 MG in SODIUM CHLORIDE 0.9% 250 ML IV SCH (17:00)
--- NOTE | 2025-05-19 12:42 | Electrocardiogram Report ---
Test Reason : Blood Pressure : */* mmHG Vent. Rate : 126 BPM Atrial Rate : 126 BPM P-R Int : 182 ms QRS Dur : 152 ms QT Int : 358 ms P-R-T Axes : 62 87 -17 degrees QTcB Int : 518 ms Sinus tachycardia with Premature atrial complexes Right bundle branch block Possible Inferior infarct (cited on or before 12-Jul-2023) Abnormal ECG When compared with ECG of 18-May-2025 02:23, Premature atrial complexes are now Present Questionable change in initial forces of Inferior leads Confirmed by Joselo Downey ([id number]) on 05/19/2025 12:42:01 PM Referred By: REFERRED SELF Confirmed By: Joselo Downey
[2025-05-20] MEDS ORDERED: VANCOMYCIN LEVEL ONE (04:00)
== END 2025-05-18 13:13 | disposition expired | DRG 393 ==
LOC: ED 02:16 → SUATTDRO 03:41 → 1E 03:41